=== PATIENT | female | born 1975 | race Caucasian/White ===

== ENCOUNTER 2022-04-25 15:49 | Outpatient (CLI) | payer OTHER, SELFPAY ==
--- OUTSIDE RECORDS SUMMARY | 2022-04-25 15:52 | XMS_ITS | Clinical Summary ---
:1975 Author Organization [facility] Address [address] [place] [address] Care Team Providers Name Role Phone Aura Sandhu APRN C.N.P., D.N.P. Primary Care Provider Source Comments Patient records contain information from all sites at [facility]. For routine questions regarding patient records, call [phone] during business hours, M-F 8:00 AM - 5:00 PM Central Time. Record requests for emergency care only can be directed to [phone] at any time.[facility] Allergies Active Allergy Reactions Severity Noted Date Comments Bee Venom Protein (Honey Other (see 09/21/2013 BEE S Bee) comments) Chloramphenicol Other (see 09/21/2013 CHLORAMPHENI COL comments) Quinolones Other (see 09/21/2013 QUINOLONES - ci loxan comments) eye tts Medications Medication Sig Dispensed Refills Start Date End Date Status chlorhexidine Take 15 mL by mouth 0 02/21/2016 Active (for_PERIDEX) 0.12 % at bedtime. mouthwash multivitamin tablet Take 2 tablets by 0 04/05/2013 Active mouth daily. coal tar (PREM-GEL) Apply 1 application 0 Active 0.5 % shampoo topically every other day as needed for dandruff. amoxicillin (AMOXIL) Take 4 capsules 12 capsule 10 07/24/2018 Active 500 mg capsule (2,000 mg total) by mouth See Admin Instructions. Prior to dental appointments calcipotriene Apply to involved 60 g 2 03/03/2020 Active (DOVONEX) 0.005 % areas on trunk and ointment extremities once daily Mondays- Additional Information Patient not taking. Reported on 08/03/2020 clobetasoL (TEMOVATE) 0.05 % 0 04/05/2021 Active ointment dexAMETHasone sodium 4 mL by iontophoretic route 25 mL 0 1 07/19/2020 Active phosphate 0.4 % solution as needed (Plantar fasciitis pain). Active Problems Problem Noted Date Other Specified Hypothyroidism 08/13/2020 Overview: Formatting of this note might be differe nt from the original. Discuss options of low-dose Synthroid tr ial for 6 months. Patient currently asymptomatic and no complaints. Mom would like to continue monitoring her thyroid levels. 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/05/2013 Overview: unknown date of dx Psoriasis 04/05/2013 Overview: unknown date of dx Stenosis Mitral Congenital 04/05/2013 Overview: unknown date of dx Defect Atrial Ventricular Canal Complete 11/08/2012 Regurgitation Mitral 11/08/2012 Overview: unknown date of dx Resolved Problems Problem Noted Date Resolved Date Monitoring For Therapeutic Drug Therapy [Z51.81] 09/07/2017 09/09/2019 Party Plan Sales Agent Anticoagulant Treatment [Z79.01] 09/07/2017 09/09/2019 Anticoagulant Therapy [Z79.01] 05/25/2017 0 Gallstone Without Obstruction 05/29/2014 07/10/2018 Primary Hypercoagulation Syndrome 09/21/20132019 Overview: Primary Hypercoagulable State 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 Anna Riley rec: lifelong coumadin Deficiency Protein S 09/05/2013 08/03/2020 Overview: Deficiency Protein S Thrombosis Deep Vein Acute Lower Extremity 04/05/2013 09/09/2019 Overview: DVT, lower extremity Encounters Date Type Specialty Care Team Description 04/20/2022 Orders Only Aura Sandhu, DISTRICT TRAFFIC CHIEF, C.N.P., D.N.P. 03/01/2022 Orders Only Aura Sandhu, Screening Examination Diabetes Mellitus; DISTRICT TRAFFIC CHIEF, C.N.P., D.N.P. Hyperli pidemia Mixed from Last 3 Months Immunizations Name Administration Dates Next Due H1N1 All Forms 07/17/2009 Influenza (IM) Preservative Free 04/12/2006 Influenza Split 04/26/2016, 04/26/2013, 04/09/2012 Influenza TIV (IM) 04/12/2013, 03/19/2012, 04/15/2008, 05/03/2007, 04/12/2006, 05/06/2005, 05/28/2003 Influenza high dose QV(65 years or 04/26/2016, 04/26/2013 older) (PF) Influenza, Unspecified 03/10/2018, 04/09/2014, 04/12/2013, 03/19/2012, 04/15/2008, 05/03/2007, 04/12/2006, 05/06/2005, 05/28/2003 SARS-COV-2 (COVID-19) - MODERNA 12/08/2021, 05/05/2021 Td Preservative Free (TENIVAC, 07/10/2018 DECAVAC) Tdap 04/09/2007 influenza vaccine quad 03/11/2021, 02/28/2020, 04/02/2019 (FLUZONE/FLUARIX) (6 months and older)(PF) Family History Medical History Relation Name Comments Breast cancer Aunt 1 Maternal Thyroid dysfunction Aunt 1 Maternal Aneurysm Aunt 2 maternal Brain Thyroid dysfunction Aunt 2 maternal Aneurysm Uncle Maternal aortic aneurysm and bulge Cataracts Neg Hx Diabetes Neg Hx Glaucoma Neg Hx Hypertension Neg Hx Macular degeneration Neg Hx Relation Name Status Comments Aunt 1 Maternal Aunt 2 maternal Uncle Maternal Social History Tobacco Use Types Packs/Day Years Used Date Smoking Tobacco: Never Smokeless Tobacco: Never Alcohol Use Standard Drinks/Week Comments Yes 0 (1 standard drink = 0.6 oz pure 1 wine cooler very occassionaly alcohol) Sex Assigned at Date Recorded Not on file Last Filed Vital Signs Vital Sign Reading Time Taken Comments Blood Pressure 116/60 08/29/2021 12:34 PM HR ADVISOR Pulse 72 08/29/2021 12:34 PM HR ADVISOR Temperature 36.4 ??C (97.5 ??F) 08/29/2021 12:34 PM HR ADVISOR Respiratory Rate 18 08/29/2021 12:34 PM HR ADVISOR Oxygen Saturation 95% 08/29/2021 12:34 PM HR ADVISOR Inhaled Oxygen Concentration - - Weight 78.5 kg (173 lb 1 oz) 08/29/2021 12:36 PM HR ADVISOR Height 148.5 cm (4' 10.47) 08/03/2020 2:19 PM HR ADVISOR Body Mass Index 35.6 08/03/2020 2:19 PM HR ADVISOR Plan of Treatment Health Maintenance Due Date Last Done Comments CT Colonography 1975 Cologuard 1975 Colonoscopy 1975 Colorectal Cancer Screening 1975 FIT 1975 HIV Screening 1975 Hepatitis B Vaccines (1 of 1974 3 - 3-dose series) Hepatitis C Screening 1975 Cervical Cancer Screening 06/26/2014 06/26/2011 (Performed elsewhere) Depression Screening 06/26/2021 (Annual PHQ-2) Fasting Glucose for 08/26/2021 08/26/2020, 07/17/2018, Diabetes Screening 2017, Additional history exists Lipid (Cholesterol) 08/26/2021 08/26/2020, 07/17/2019, Screening 07/17/2018, Additional history exists COVID-19 Vaccine (5 - 02/02/2022 12/08/2021, 05/05/2021, Booster for Moderna series) 08/28/2020, Addition al history exists Influenza Vaccine (#1) 2022 03/11/2021, 02/28/2020, 04/02/2019, Additional history exists Mammogram 10/25/2022 10/25/2021, 08/03/2020, 08/01/2019, Additional history exists DTaP,Tdap,and Td Vaccines 07/10/2028 07/10/2018, 04/09/2007 (3 - Td or Tdap) Pneumococcal vaccine (0-64 Aged Out No lo nger eligible years) based on patient 's age to complete this topic Medical Devices Implanted Type Area Associate Account Manager Device Shelf Model / Identifier Expiration Serial / Date Lot Syn-Screw Cortex S-Tap 2.4 X 18mm - [id number] [id number] Hardware e.g. Depuy Synthes Implanted: Qty: 2 on 05/09/2016 pins/screws/r ods Description: Device Associate Account Manager - Synth es. Device Status Text - [id number]. Patch Pericardial Supple 6 X 8 - Akers [id number] Mesh or Patch Other/Legacy - See Implant Synovis Implanted: Qty: 1 on 03/29/2013 Description Description: Device Associate Account Manager - Synov is. Body Location - Other. Not Applicable. Device Status Text - [id number]. Insurance Payer Benefit Plan / Subscriber ID Effective Dates Phone Addre ss Type Group [facility] [id number] 2017-Presamarilis [address] [facility] t JEN [address] [facility] [id number] Advance Directives For more information, please contact: [phone] Documents on File Type Date Recorded Patient Manager Loss Prevention Explanati on Advance Directives 03/03/2016 12:00 AM Legacy docu ment. See document viewer. Advance Directives 03/29/2013 12:00 AM Legacy doc ument. See document viewer. Advance Directives 03/29/2013 12:00 AM Legacy doc ument. See document viewer. Care Teams Therapeutic Recreation Director Relationship Specialty Start Date End Date Aura Sandhu APRN, C.N.P., D.N.P. PCP - General 09/25/[address] [place] [phone]
--- OUTSIDE RECORDS SUMMARY | 2022-04-25 15:52 | XMS_ITS | Encounter Summary ---
:1975 Author Organization [facility] Address [address] [place] [address] Care Team Providers Name Role Phone Aura Sandhu APRN C.N.PMichael, D.N.P. Primary Care Provider Reason for Referral Outpatient (Routine) - Authorized Specialty Diagnoses / Procedures Referred By Contact Refer red To Contact Family Medicine Aura Sandhu APRN, [facility] C.N.P., D.N.P. [address] [place] [phone] Referral ID Status Reason Start Date Expiration Date Visits V isits Requested Authorized [id number] Authorized 11/30/2021 11/30/2022 1 1 Encounter Details Date Type Department Care Team Description 11/30/2021 Orders Only [facility] PCP [facility] [place] Duke M.D. [address] [place], [place] [phone] (Wo rk) Social History Tobacco Use Types Packs/Day Years Used Date Smoking Tobacco: Never Smokeless Tobacco: Never Alcohol Use Standard Drinks/Week Comments Yes 0 (1 standard drink = 0.6 oz pure 1 wine cooler very occassionaly alcohol) Sex Assigned at Date Recorded Not on file documented as of this encounter Plan of Treatment Scheduled Referrals Name Type Priority Associated Diagnoses Order S [facility] Family Medicine Outpatient Referral Routine Expec nelson: office visit 12/14/2021, (clinic) Expires: 05/29/2022 documented as of this encounter Visit Diagnoses Not on filedocumented in this encounter Care Teams Ob Gyn Relationship Specialty Start Date End Date Aura Sandhu APRN, C.N.P., D.N.P. PCP - General 09/25/[address] [place] [phone] documented as of this encounter
--- OUTSIDE RECORDS SUMMARY | 2022-04-25 15:52 | XMS_ITS | Encounter Summary ---
:1975 Author Organization [facility] Address [address] [place] [address] Care Team Providers Name Role Phone Aura Sandhu APRN C.N.PMichael, D.N.P. Primary Care Provider Reason for Visit Appointment Request (Routine) - Closed Specialty Diagnoses / Procedures Referred By Contact Refer red To Contact Family Medicine Referral ID Status Reason Start Date Expiration Date Visits Requ ested Visits Authorized [id number] Closed 11/17/2021 11/17/2022 1 1 Encounter Details Date Type Department Care Team Description 12/08/2021 Immunization Department of [facility] Aura Sandhu, Medicine, [place] [facility], C.N .P., D.N.P. Clinic, in [address] [place], [place] [address] [phone] Social History Tobacco Use Types Packs/Day Years Used Date Smoking Tobacco: Never Smokeless Tobacco: Never Alcohol Use Standard Drinks/Week Comments Yes 0 (1 standard drink = 0.6 oz pure 1 wine cooler very occassionaly alcohol) Sex Assigned at Date Recorded Not on file documented as of this encounter Plan of Treatment Not on filedocumented as of this encounter Visit Diagnoses Not on filedocumented in this encounter Care Teams Production Staff Worker Relationship Specialty Start Date End Date Aura Sandhu APRN, C.N.P., D.N.P. PCP - General 09/25/[id number] [phone] documented as of this encounter
--- OUTSIDE RECORDS SUMMARY | 2022-04-25 15:52 | XMS_ITS | Encounter Summary ---
:1975 Author Organization [facility] Address [address] [place] [address] Care Team Providers Name Role Phone Aura Sandhu APRN C.N.PMichael, D.N.P. Primary Care Provider Reason for Referral Specialty Diagnoses / Procedures Referred By Contact Refer red To Contact Aura Sandhu APRN, C.N.PMichael, [facility] D.N.P. [address] [place] [phone] Referral ID Status Reason Start Date Expiration Date Visits Requ ested Visits Authorized Encounter Details Date Type Department Care Team Description 04/20/2022 Orders Only [facility] Aura Sandhu APRN C.N.P., D.N.P. [address] [place] [phone] (Wo rk) Social History Tobacco Use Types Packs/Day Years Used Date Smoking Tobacco: Never Smokeless Tobacco: Never Alcohol Use Standard Drinks/Week Comments Yes 0 (1 standard drink = 0.6 oz pure 1 wine cooler very occassionaly alcohol) Sex Assigned at Date Recorded Not on file documented as of this encounter Plan of Treatment Scheduled Referrals Name Type Priority Associated Order Schedule Diagnoses Covid immunization Outpatient Referral Routine Ex pected: office visit 04/20/2022 Immuno/Booster (Approximate) , Expires: 04/20/2023 documented as of this encounter Visit Diagnoses Not on filedocumented in this encounter Care Teams Railway Head Tender Relationship Specialty Start Date End Date Aura Sandhu APRN, C.N.P., D.N.P. PCP - General 09/25/[id number] [phone] documented as of this encounter
--- OUTSIDE RECORDS SUMMARY | 2022-04-25 15:53 | XMS_ITS | Encounter Summary ---
:1975 Author Organization [facility] Address [address] [place] [address] Care Team Providers Name Role Phone Aura Sandhu APRN C.N.PMichael, D.N.P. Primary Care Provider Reason for Visit Reason Comments Follow-up Outpatient (Routine) - Closed Specialty Diagnoses / Procedures Referred By Contact Refer red To Contact Oncology Shawn Barton M.D. [facility] Region [address] [place] [phone] Referral ID Status Reason Start Date Expiration Date Visits Requ ested Visits Authorized [id number] Closed 06/29/2020 06/29/2021 1 1 Encounter Details Date Type Department Care Team Description 08/03/2020 Office Visit Department of Shawn Barton, Primary Hyp ercoagulation Oncology in [facility] Syndrome (HCC) ([place], [place] [address] [place] [address] Dx) [address] [place] [phone] Social History Tobacco Use Types Packs/Day Years Used Date Smoking Tobacco: Never Smokeless Tobacco: Never Alcohol Use Standard Drinks/Week Comments Yes 0 (1 standard drink = 0.6 oz pure 1 wine cooler very occassionaly alcohol) Sex Assigned at Date Recorded Not on file documented as of this encounter Last Filed Vital Signs Vital Sign Reading Time Taken Comments Blood Pressure 100/44 08/03/2020 2:19 PM TOW TRUCK DISPATCHER Pulse 66 08/03/2020 2:19 PM TOW TRUCK DISPATCHER Temperature - - Respiratory Rate - - Oxygen Saturation - - Inhaled Oxygen Concentration - - Weight 80.7 kg (177 lb 14.6 oz) 08/03/2020 2:19 PM TOW TRUCK DISPATCHER Height 148.5 cm (4' 10.47) 08/03/2020 2:19 PM TOW TRUCK DISPATCHER Body Mass Index 36.59 08/03/2020 2:19 PM TOW TRUCK DISPATCHER documented in this encounter Progress Notes Shawn Barton M.D. - 08/03/2020 2:30 PM CST SUBJECTIVE REQUESTING PROVIDER Shawn Barton M.D. [address] [place] [phone] CHIEF COMPLAINT / REASON FOR VISIT Hue Medina is a 45 y.o. female who presents for a history of low protein S levels control pill on Coumadin associated DVT of the right leg. Here for oncological follow-up visit after off of anticoagulation and repeat coagulation testing HISTORY OF PRESENT ILLNESS Oncology History Oncology History Overview Note 2006 while on control pills, developed a DVT in the right leg. Testing suggested protein S deficiency. Has been on Coumadin since that time with no further blood clot or pulmonary embolism. Has had multiple surgeries without problems including valvular heart surgery, broken arm, and cellulitis. No family history of clotting. 2016 Component Ref Range & Units 4yr ago Antithrombin Activity, P 80 - 130 % 76Low Protein S Ag, Free, P 50 - 160 % 25Low Activated Partial Thrombopl Time, P 26 - 36 SEC 27 Thrombin Time (Bovine), P 15 - 23 SEC 17 Prothrombin Time, P 10.3 - 12.8 SEC 18.3High INR 1.7 PTNT Reviewed By . Comment: Jeremi Hoang M.D., Ph.D. PTNT Interpretation . Comment: This individual DOES NOT have the Prothrombin [id number] mutation. Although the Prothrombin [id number] mutation is absent, the individual may have other genetic and environmental risk factors for thrombosis. Consider genetic consultation and counseling of potentially affected family members regarding laboratory testing. ADDITIONAL INFORMATION This test is a direct mutation analysis using PCR amplification, signal generation and release by cleavage of sequence specific alleles ([employer], [employer], [place], [place]). APCRV Ratio >or=2.3 3.0 Fibrinogen, P 200 - 430 MG/DL 364 Fibrinogen Equivalent Units (FEU) 0.00 - 0.50 MCG/ML FEU 0.67High D-Dimer Units (DDU) 0 - 250 335High Comment: Unit of measure: ng/mL D-Dimer Soluble Fibrin Monomer 0.0 - 7.9 MCG/ML <8 DRVVT Screen Ratio 0.0 - 1.1 RATIO 0.9 Protein C Activity, P 70 - 150 % 63Low Prothrombin E40851C Mutation, B Negative Negative Reviewed By: (Conor Foss Intergio) . Comment: Eva Mackenzie. HX Interpretation (w/Conor-Prudence) . Comment: Type of Study: Thrombophilia Profile 05/10/2016 IMPRESSION: 1) Warfarin anticoagulation effects, see comments. 2) Decreased protein C/S levels and reduced antithrombin activity and antigen, acquired versus congenital. See comments, suggest clinical correlation and consider repeat testing for confirmation at patient's baseline medical status and remote from anticoagulation effects. 3) Mildly elevated D-dimer, see comments and suggest correlation with patient's medical status. 4) No additional identifiable congenital or acquired thrombophilia within limitations of current test repertoire. COMMENTS: Result of mixing study of prolonged prothrombin time (PT), along with the reduced vitamin K-dependent factors (factors II, VII and proteins C and S), are consistent with either warfarin anticoagulation effect or a vitamin K deficiency state. Suggest clinical correlation. Note: The patient's reported history of protein S deficiency is noted. This thrombophilia testing was sent while the patient is on warfarin anticoagulation therapy and the reduced free and total protein S levels may reflect either warfarin anticoagulation effects, congenital deficiency, or a combination. There is no significant discordance between the protein S levels and the activity of factor II (which has a similar half-life to protein S) and therefore no strong indication of a congenital deficiency. However, this cannot be excluded based on current data. To determine whether the patient has a congenital protein S deficiency, testing could be repeated at least 14 days after warfarin therapy discontinuation if clinically indicated. Note: Decreased antithrombin antigen and/or activity could reflect acquired conditions [e.g., liver disease, disseminated intravascular coagulation (DIC/ICF), effect of recent heparin therapy, etc.] or a congenital deficiency state. Suggest clinical correlation. Elevated fibrin D-dimer is indicative of increased fibrinolysis, as can occur in association with recent bleeding, surgery or thromboembolism, hypercoagulable state, liver disease, or intravascular coagulation and fibrinolysis (DIC/ICF). Suggest clinical correlation. No evidence of lupus anticoagulant (LAC) or dysfibrinogenemia. Normal fibrinogen level. No evidence of activated protein C resistance; therefore DNA-based testing for factor V Leiden (R506Q) mutation was not performed. This individual DOES NOT have the prothrombin R63845G mutation. Negative results of testing for IgG and IgM anticardiolipin antibodies provide no evidence of antiphospholipid antibodies by this methodology. Deficiency Protein S (HCC) (Resolved) 09/05/2013 Initial Diagnosis Deficiency Protein S (HCC) 06/2020 Restage Repeat coagulation testing off of Coumadin shows no evidence of protein C or protein S deficiency. Does show elevation of D-dimer with normal soluble fibrin monomer. Since our last evaluation, did go off of Coumadin and did have repeat coagulation testing. Does havean active infection of her tooth. She also has some bruising in her thigh. Those now resolved. Otherwise no blood clots or pulmonary embolism symptoms while off of anticoagulation ECOG PS = 0 REVIEW OF SYSTEMS All other systems reviewed and are negative. OBJECTIVE BP (!) 100/44 (BP Location: Right arm, Patient Position: Sitting, Cuff Size: Regular) Pulse 66 Ht 148.5 cm Wt 80.7 kg BMI 36.59 kg/m?? No data recorded PHYSICAL EXAM Vitals signs and nursing note reviewed. Constitutional Appearance: Normal appearance. Skin Comments: Clinical examination of the thigh bilaterally shows no evidence of any masses or any bruising at this time. Neurological Mental Status: She is alert. Psychiatric Mood and Affect: Mood normal. Behavior: Behavior normal. REPORTS REVIEWED Imaging: Reviewed images in QREADS with Hue Medina no new imaging done. Laboratory/Pathology: Reviewed labs with Hue Medina No results found for this or any previous visit (from the past 72 hour(s)). ASSESSMENT / PLAN #1 Primary Hypercoagulation Syndrome (HCC) I reviewed with Ms. Medina and her mother, that repeat testing of her anticoagulation system off of anticoagulation with warfarin did show normal protein C and protein S levels. At this point we cannot confirm that she has an inheritable or acquired protein [employer] deficiency. We did discuss concerns regarding the persistent elevation of the D-dimer. We did discuss the differential diagnosis and reasons why this is elevated. She did have a normal soluble fibrin monomer. So at this time it could be due to the on after lying infection of her tooth or her bruising that she hadin her thighs has now resolved. Recommendation at this time is to repeat a D-dimer as though she does not have any clinical evidence of DVT. Given the anticoagulation for her control pill induced DVT, she has been off of therapy without further problems. So at this time will continue to monitor off of therapy. If she does develop a clot again, she would then need to be on long-term anticoagulation either with Coumadin or DOCA. Will a know the results of the D-dimer via the portal per request. All questions answered to apparent satisfaction. The patient agrees with plan and to call with questions/symptoms. Orders Placed This Encounter Procedures ??? D-Dimer PATIENT EDUCATION Learning needs assessment was performed. No learning barriers were identified. Explained diagnosis and treatment plan. Patient expressed understanding and was able to teach back. TRUCK DISPATCHER documented in this encounter Plan of Treatment Not on filedocumented as of this encounter Results (ABNORMAL) D-Dimer (08/03/2020 3:09 PM TOW TRUCK DISPATCHER) P athologist Signature D-Dimer, P 1071 (H) <=500 ng/mL 08/03/2020 [facility] FEU 3:25 PM TOW TRUCK DISPATCHER Comment: ----ADDITIONAL INFORMATION---- D-dimer values less than or equal to 500 ng/mL fibrinogen equivalent units (FEU) may be used in co njunction with clinical pre-test probability to exclude deep vein thrombosis (DVT) and/or pulmonary emboli sm (PE). Specimen Anatomical Collection Method Collection Time Receive d Time (Source) Location / / Volume Laterality Blood (Blood, 08/03/2020 3:09 PM 08/03/19 3:10 Venous) TOW TRUCK DISPATCHER PM TOW TRUCK DISPATCHER Shawn Barton M.D. LAB BLOOD ADD-ON Performing Organization Address City/State/ZIP Code Phon e Number [facility] [address] [place], [place] [address] [place] [address] System in [place] [address] documented in this encounter Visit Diagnoses Diagnosis Primary Hypercoagulation Syndrome (HCC) - Primary documented in this encounter Care Teams Building Construction Supervisor Relationship Specialty Start Date End Date Aura Sandhu APRN, C.N.P., D.N.P. PCP - General 09/25/[address] [place] [phone] documented as of this encounter
--- OUTSIDE RECORDS SUMMARY | 2022-04-25 15:53 | XMS_ITS | Encounter Summary ---
:[address] [facility] Address [address] [place] [address] Care Team Providers Name Role Phone Aura Sandhu APRN C.N.PMichael, D.N.P. Primary Care Provider Reason for Referral Outpatient (Routine) - Closed Specialty Diagnoses / Procedures Referred By Contact Refer red To Contact Oncology Shawn Barton M.D. [facility] [address] [place] [address] Referral ID Status Reason Start Date Expiration Date Visits Requ ested Visits Authorized [id number] Closed 06/29/2020 06/29/2021 1 1 NOSE THROAT PHYSICIAN Reason for Visit Reason Comments Consult Deficiency Protein C Appointment Request (Routine) - Closed Specialty Diagnoses / Procedures Referred By Contact Refer maci To Contact Hematology Diagnoses Deficiency Protein C (HCC) Abelino Rehman M.D. [address] [place], [place] [address] Referral ID Status Reason Start Date Expiration Date Visits Requ ested Visits Authorized [id number] Closed 05/15/2020 05/15/2021 1 1 Encounter Details Date Type Department Care Team Description 06/29/2020 Comprehensive Visit Department of Shawn Barton Trisomy 21 (HCC) (Primary Dx); Oncology in Maci Ureña M.D. Deficiency Protein S (HCC) [place], [place] [address] [facility] [address] [place] [phone] Social History Tobacco Use Types Packs/Day Years Used Date Smoking Tobacco: Never Smokeless Tobacco: Never Alcohol Use Standard Drinks/Week Comments Yes 0 (1 standard drink = 0.6 oz pure alcoho l) Sex Assigned at Date Recorded Not on file documented as of this encounter Last Filed Vital Signs Vital Sign Reading Time Taken Comments Blood Pressure 101/61 06/29/2020 9:45 AM EAR NOSE THROAT PHYSICIAN Pulse 67 06/29/2020 9:45 AM EAR NOSE THROAT PHYSICIAN Temperature - - Respiratory Rate - - Oxygen Saturation 99% 06/29/2020 9:45 AM EAR NOSE THROAT PHYSICIAN R/A Inhaled Oxygen Concentration - - Weight 79.4 kg (175 lb 0.7 oz) 06/29/2020 9:45 AM EAR NOSE THROAT PHYSICIAN Height 148.5 cm (4' 10.47) 06/29/2020 9:45 AM EAR NOSE THROAT PHYSICIAN Body Mass Index 36 06/29/2020 9:45 AM EAR NOSE THROAT PHYSICIAN documented in this encounter Progress Notes Shawn Barton M.D. - 06/29/2020 10:00 AM CST SUBJECTIVE REQUESTING PROVIDER Abelino Rehman M.D. [address] [place] [address] CHIEF COMPLAINT / REASON FOR VISIT Hue Medina is a 45 y.o. female who presents for a history of right lower leg DVT in the setting of control pills and low protein C and S activity while on Coumadin. Were asked evaluate whether not she actually has protein S deficiency and need for anticoagulation. HISTORY OF PRESENT ILLNESS Oncology History Oncology [...] This individual DOES NOT have the Prothrombin [id number] mutation. Although the Prothrombin [id number] mutation is absent, the individual may have other genetic and environmental risk factors for thrombosis. Consider genetic consultation and counseling of potentially affected family members regarding laboratory testing. ADDITIONAL INFORMATION This test is a direct mutation analysis using PCR amplification, signal generation and release by cleavage of sequence specific alleles ([employer], [employer], [place], [place]). APCRV Ratio >or=2.3 3.0 Fibrinogen, P 200 - 430 MG/DL 364 Fibrinogen Equivalent Units (FEU) 0.00 - 0.50 MCG/ML FEU 0.67High D-Dimer Units (DDU) 0 - 250 335High Comment: Unit of measure: ng/mL D-Dimer Soluble Fibrin Monomer 0.0 - 7.9 MCG/ML <8 DRVVT Screen Ratio 0.0 - 1.1 RATIO 0.9 Protein C Activity, P 70 - 150 % 63Low Prothrombin G71014F Mutation, B Negative Negative Reviewed By: (Conor Foss [employer]p) . Comment: Eva Mackenzie. HX Interpretation (w/Conor-Prudence) [...] This individual DOES NOT have the prothrombin P99910R mutation. Negative results of testing for IgG and IgM anticardiolipin antibodies provide no evidence of antiphospholipid antibodies by this methodology. 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 Also Sivakumar review the thrombophilia profile at that time. Should be noted that she did have a DVT in the right lower leg sometime around 2006 in the setting of control pills. She has been on Coumadin since that time is having hard time regulating it. She has had no active bleeding or clots since on Coumadin. She has had multiple surgery including open heart surgery and broken bones surgery without problems. She has drifted down prior to procedures that are planned and has done well without clots. There is no family history of blood clots. She is otherwise active without any other systemic symptoms. She does have trisomy 21. ECOG PS = 0 The following portions of the patient's history were reviewed and updated as appropriate: allergies,current medications, family history, medical history, social history, surgical history and problem list. REVIEW OF SYSTEMS All other systems reviewed and are negative. OBJECTIVE BP 101/61 (BP Location: Right arm, Patient Position: Sitting, Cuff Size: Regular) Pulse 67 Ht 148.5 cm Wt 79.4 kg SpO2 99% Comment: R/A BMI 36.00 kg/m?? No data recorded PHYSICAL EXAM Vitals signs and nursing note reviewed. Cardiovascular Rate and Rhythm: Regular rhythm. Pulmonary Effort: Pulmonary effort is normal. Neurological General: No focal deficit present. Mental Status: She is alert. Psychiatric Mood and Affect: Mood normal. Behavior: Behavior normal. Thought Content: Thought content normal. Judgment: Judgment normal. REPORTS REVIEWED Imaging: Reviewed images in QREADS with Hue Bellamy Carol Laboratory/Pathology: Reviewed labs with Hue Medina No results found for this or any previous visit (from the past 72 hour(s)). ASSESSMENT / PLAN #1 Trisomy 21 (HCC) #2 Deficiency Protein S (HCC) I reviewed with Ms. Medina and her mother, that at this time it does appear that there is some low activity protein C and S in the setting of Coumadin. This makes interpretation if she actually has protein C/S difficult. The only way to test this would be to see a thrombophilia profile off of anticoagulation for 2 weeks. There is a slight risk of clots during this time they understand. Is agreed upon that they will stop the Coumadin today. Last dose was on Sunday June 28, 2020. Will check a thrombophilia profile 2 weeks from now and then see her back in a month to review the results. There is no strong history of inheritable blood coagulopathy. We did discuss even if she does have protein C/S deficiency, that she might not need long-term anticoagulation given her DVT in the right leg was provoked with control pills. We did discuss she is at higher risk if she does have protein C/S deficiency during any provoking events such as surgery. They understand. We also discussed the alternative option using DOAC if she does develop recurrent DVT/PE off of anticoagulation. Will review findings and recommendations for anticoagulation when visit [id number] to review the results of the thrombophilia evaluation. We also discussed the option of getting further input from our thrombophilia colleagues in [facility] via E consult if necessary All questions answered to apparent satisfaction. The patient agrees with plan and to call with questions/symptoms. Orders Placed This Encounter Procedures ??? Thrombophilia Profile ??? Oncology office visit (clinic) PATIENT EDUCATION Learning needs assessment was performed. No learning barriers were identified. Explained diagnosis and treatment plan. Patient expressed understanding and was able to teach back. ADMINISTRATIVE BILLING I personally spent over half of a total 45 minutes face to face with the patient in counseling and discussion and/or coordination of care as described above. NOSE THROAT PHYSICIAN documented in this encounter Plan of Treatment Scheduled Referrals Name Type Priority Associated Diagnoses Order S [facility] On[facility] office Outpatient Referral Routine Expec nelson: visit (clinic) 07/30/2020 (Approximate), Expires: 06/29/2023 documented as of this encounter Results (ABNORMAL) Thrombophilia Profile (07/13/2020 9:08 AM EAR NOSE THROAT PHYSICIAN) P athologist Signature Prothrombin Time 10.5 9.4 - 12.5 07/14/2020 DTL (PT), P sec 9:56 AM EAR NOSE THROAT PHYSICIAN INR 1.0 0.9 - 1.1 07/14/2020 DTL 9:56 AM EAR NOSE THROAT PHYSICIAN Comment: ----ADDITIONAL INFORMATION---- Standard intensity warfarin therapeutic range: 2.0 to 3.0 High intensity warfarin therapeutic rang e: 2.5 to 3.5 Activated Partial Thrombopl Time, 26 25 - 37 sec 06/26 9:58 AM EAR NOSE THROAT PHYSICIAN DTL P DRVVT Screen Ratio 1.19 <1.20 ratio 07/14/2020 9:56 AM EAR NOSE THROAT PHYSICIAN DTL Thrombin Time (Bovine), P 20.0 15.8 - 24.9 sec 07/14/19 21 9:56 AM EAR NOSE THROAT PHYSICIAN DTL Fibrinogen, Clauss, P 390 200 - 500 mg/dL 07/14/2020 9 :49 AM EAR NOSE THROAT PHYSICIAN DTL Comment: ----ADDITIONAL INFORMATION---- This test has been modified from the man melanie's instructions. Its performance characteri stics were determined by [facility] in a manner co nsistent with CLIA requirements. This test has not bee n cleared or approved by the U.S. Food and Drug Admin istration. D-DIMER, P 1031 (H) <=500 ng/mL FEU 07/14/2020 9:57 AM EAR NOSE THROAT PHYSICIAN DTL Comment: ----ADDITIONAL INFORMATION---- D-dimer values less than or equal to 500 ng/mL fibrinogen equivalent units (FEU) may be used in co njunction with clinical pre-test probability to exclude deep vein thrombosis (DVT) and/or pulmonary emboli sm (PE). Antithrombin Activity, P 93 80 - 130 % 07/14/2020 9:4 9 AM EAR NOSE THROAT PHYSICIAN DTL Comment: ----ADDITIONAL INFORMATION---- This test has been modified from the [employer]'s instructions. Its performance characteri stics were determined by [facility] in a manner co nsistent with CLIA requirements. This test has not bee n cleared or approved by the U.S. Food and Drug Admin istration. Protein C Activity, P 162 (H) 70 - 150 % 07/14/2020 9:58 A M EAR NOSE THROAT PHYSICIAN DTL Comment: ----ADDITIONAL INFORMATION---- This test has been modified from the [employer]'s instructions. Its performance characteri stics were determined by [facility] in a manner co nsistent with CLIA requirements. This test has not bee n cleared or approved by the U.S. Food and Drug Admin istration. Protein S Ag, Free, P 75 50 - 160 % 07/14/2020 9:50 A M EAR NOSE THROAT PHYSICIAN DTL Comment: ----ADDITIONAL INFORMATION---- This test has been modified from the [facility] instructions. Its performance characteri stics were determined by [facility] in a manner co nsistent with CLIA requirements. This test has not bee n cleared or approved by the U.S. Food and Drug Admin istration. APCRV Ratio 3.0 >or=2.3 07/14/2020 9:48 AM EAR NOSE THROAT PHYSICIAN DTL Reviewed By SAEED Bah 08/04/2020 3:03 PM EAR NOSE THROAT PHYSICIAN DTL Prothrombin R31213S CANCELED Negative 07/16/2020 1:[address] DTL Mutation, B Comment: Result canceled by the kunal conroy PTNT Interpretation CANCELED 07/16/2020 1:[address] DTL Comment: Result canceled by the kunal conroy Thrombophilia REVISED REPORT: 08/04/2020 3:03 PM D TL Interpretation ?? IMPRESSION: 1) Elevated D-dimer; see comments and suggest clinical EAR NOSE THROAT PHYSICIAN correlation. ?2) No identifiable congenital or acquired thrombotic d iathesis (thrombophilia) within limitations of test repertoire. ?3) If indicated for ad ditional thrombophilia assessment, consider testing for anticardiolipin and/or anti-beta 2 glycoprot ein I antibodies (IgG and IgM isotypes). ?4) Results of referred test component Prothrombin G2 0210A demonstrate that this individual DOES NOT have the prothrombin J97294N m utation. ??See comments. Testing performed at [facility] (CLIA# [id number]) [address] [place] [id number]. ?COMMENTS: Fibrin D-dimer elevation is indicative of in creased intravascular coagulation and fibrinolysis (ICF) , as can occur in association with recent bleeding, surgery or thromboembolism, hypercoagu lable or hyperfibrinolytic states, liver disease, or clinical ICF/DIC (disseminated intravascular coagulation). The normal soluble fibrin monomer complex (SFMC) provides no additional evidence of increased intravascular c oagulation or ICF/DIC, within assay sensitivity. ??Suggest clinical correl ation. ?No evidence of lupus anticoagulant (LAC) or dysfibrino genemia. No deficiencies of antithrombin, protein C and protein S. ?No evidence of resistance to activated protein C (APC) ; therefore, DNA-based testing for the factor V Leiden (R506Q ) mutation was not performed. A normal APC-resistance ratio has a greater than 99% negativ e predictive value for factor V (R506Q) Leiden. ?Due to reagent supply issues, component PTNT: Prothrom bin B97970R Mutation, Blood is unable to be performed at [facility] oratories. Results of referral test [test code FPF2V: Prothrombin (F2) L34832G Variant] demonstrate that this individual DOES NOT have the prothromb in W81149H mutation. Testing performed at [facility] (CLIA# [id number]) [address] [place] [address]. ?Note: ??Increased protein C activity is of unknown hem ostatic significance. Comment: REVISED RESULTS ----PREVIOUSLY REPORTED ---- IMPRESSION: 1) Elevated D-dimer; see comments and suggest clinical correlation. ?2) No identifiable congenital or a cquired thrombotic diathesis (thrombophilia) within limitations of te st repertoire. ?3) If indicated for additional thr ombophilia assessment, consider testing for anticardiolipin and/or anti-beta 2 g lycoprotein I antibodies (IgG and IgM isotypes). ?4) Specimen for DNA based testing for component Prothrombin L16179A has been forwarded to [facility] and an amended report will be issued upon availability of results. See comments. ?COMMENTS: Fibrin D-dimer elevation is indicative of increased intravascular coagulation and fibrinolys is (ICF), as can occur in association with recent bleeding, surgery or thrombo embolism, hypercoagulable or hyperfibrinolytic states, liver disease, or clinical ICF/DIC (disseminated intravascular coagulation). The normal s oluble fibrin monomer complex (SFMC) provides no additional evidence of incre ased intravascular coagulation or ICF/DIC, within assay sensitivity. ??Sug gest clinical correlation. ?No evidence of lupus anticoagulant (LAC) or dysfibrinogenemia. No deficiencies of antithrombin, protein C and protein S. ?No evidence of resistance to activ ated protein C (APC); therefore, DNA-based testing for the factor V Leide n (R506Q) mutation was not performed. A normal APC-resistance ratio has a grea ter than 99% negative predictive value for factor V (R506Q) Leiden. ?Due to reagent supply issues, comp onent PTNT: Prothrombin S99962N Mutation, Blood is unable to be performe d; however, a blood specimen has been forwarded to [facility] (CLIA# [id number]) [address] [place] [address], an amended report will b e released. Interpretation of these results should be made within the clinic al context. ??If you wish to discuss these findings with a [facility] dairy feed sales consultant, please call [phone]. ?Note: ??Increased protein C activi ty is of unknown hemostatic significance., Flagged as: ??(Reported 0 07/21/2020 10:08) Specimen Anatomical Collection Method Collection Time Receive d Time (Source) Location / / Volume Laterality Blood (Blood, 07/13/2020 9:08 AM 07/14/19 7:59 Venous) EAR NOSE THROAT PHYSICIAN AM EAR NOSE THROAT PHYSICIAN Narrative [facility] - 08/04/2020 3:03 PM EAR NOSE THROAT PHYSICIAN Specimen Information: Specimen ID: [id number] Specimen Type: Blood Specimen Collection Start Date: 07/13/19 ??9:08 AM Specimen Received Date: 07/14/2020 ??7:5 9 AM Specimen ID: [id number] Specimen Type: Blood Specimen Collection Start Date: 07/13/19 ??9:08 AM Specimen Received Date: 07/14/2020 ??7:5 8 AM Specimen ID: [id number] Specimen Type: Blood Specimen Collection Start Date: 07/13/19 ??9:08 AM Specimen Received Date: 07/14/2020 ??7:5 9 AM Specimen ID: [id number] Specimen Type: Blood Specimen Collection Start Date: 07/13/19 ??9:08 AM Specimen Received Date: 07/14/2020 ??7:5 9 AM Specimen ID: [id number] Specimen Type: Blood Specimen Collection Start Date: 07/13/19 ??9:08 AM Specimen Received Date: 07/14/2020 ??7:5 9 AM Specimen ID: [id number] Specimen Type: Blood Specimen Collection Start Date: 07/13/19 ??9:08 AM Specimen Received Date: 07/14/2020 ??8:1 4 AM Shawn Barton M.D. LAB BLOOD NON ADD-ON Performing Organization Address City/State/ZIP Code Phon e Number [facility] [address] [place], [place] [address] [facility] [place] [address] [facility] [address] documented in this encounter Visit Diagnoses Diagnosis Trisomy 21 (HCC) - Primary Deficiency Protein S (HCC) Trisomy 21 (HCC) Deficiency Protein S (HCC) documented in this encounter Care Teams Product Advisor Relationship Specialty Start Date End Date Lindbeck, Aura M, CUSTOMER CONTACT REPRESENTATIVE, C.N.P., D.N.P. PCP - General 09/25/[id number] [place] [phone] documented as of this encounter
--- OUTSIDE RECORDS SUMMARY | 2022-04-25 15:53 | XMS_ITS | Encounter Summary ---
:1975 Author Organization [facility] Address [address] [place] [address] Care Team Providers Name Role Phone Aura Sandhu APRN, C.NGalileo, D.N.P. Primary Care Provider Encounter Details Date Type Department Care Team Description 04/16/2021 Hospital Encounter Department of Deyanira Weber, Pain Heel Right Radiology in [place] APRN.NGalileo, [place], [place] D.N.P. [id number] [place] [phone] Social History Tobacco Use Types Packs/Day Years Used Date Smoking Tobacco: Never Smokeless Tobacco: Never Alcohol Use Standard Drinks/Week Comments Yes 0 (1 standard drink = 0.6 oz pure 1 wine cooler very occassionaly alcohol) Sex Assigned at Date Recorded Not on file documented as of this encounter Medications at Time of Discharge Medication Sig Dispensed Refills Start Date End Date amoxicillin (AMOXIL) Take 4 capsules 12 capsule 10 07/24/2018 500 mg capsule (2,000 mg total) by mouth See Admin Instructions. Prior to dental appointments calcipotriene (DOVONEX) Apply to involved 60 g 2 03/03 0.005 % ointment areas on trunk and extremities once daily Mondays- chlorhexidine Take 15 mL by mouth 0 02/21/2016 (for_PERIDEX) 0.12 % at bedtime. mouthwash clobetasoL (TEMOVATE) 0 04/05/2021 0.05 % ointment coal tar (PREM-GEL) 0.5 Apply 1 application 0 % shampoo topically every other day as needed for dandruff. multivitamin tablet Take 2 tablets by 0 3 mouth daily. warfarin (for_COUMADIN) warfarin 2.5 mg oral 0 08/29/2021 2.5 mg tablet tablet See Instructions, 5mg Sun, Tues & Thurs, 2.5mg all other days or as directed per INR Clinic as of 09/29/2016, 30 tab(s) documented as of this encounter Plan of Treatment Not on filedocumented as of this encounter Procedures Procedure Name Priority Date/Time Associated Comments Diagnosis DX FOOT RIGHT 3+ RAD - Routine 04/16/2021 8:23 Pain Heel Right Resu lts for this VIEWS (most inpatients AM CDT procedure a re in and all the results outpatients) section. 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 Hindfo ot valgus and pes planus. Tiny plantar calcaneal spur. Narrative 04/16/2021 8:32 AM CDT EXAM: DX FOOT RIGHT 3+ VIEWS Procedure Note Sang Brian M.D. - 04/16/2021F ormatting of this note might be different from the original. EXAM: DX FOOT RIGHT 3+ VIEWS IMPRESSION: Hallux valgus with a bunion deformity an d mild degenerative arthritis of the first MTP joint. Hindfo ot valgus and pes planus. Tiny plantar calcaneal spur. Deyanira Weber APRN, C.N.P., D.N.P. IMG DIAGNOSTIC IMAG ING PROCEDURES documented in this encounter Visit Diagnoses Diagnosis Pain Heel Right documented in this encounter Care Teams Senior Property Manager Relationship Specialty Start Date End Date Aura Sandhu APRN, C.N.P., D.N.P. PCP - General 09/25/[id number] [phone] documented as of this encounter
--- OUTSIDE RECORDS SUMMARY | 2022-04-25 15:53 | XMS_ITS | Encounter Summary ---
:1975 Author Organization [facility] Address [address] [place] [address] Care Team Providers Name Role Phone Aura Sandhu APRN C.N.P., D.N.P. Primary Care Provider Reason for Visit Physical Therapy (Routine) - Canceled Specialty Diagnoses / Procedures Referred By Contact Refer red To Contact Diagnoses Pain Heel Right Deyanira Weber APRN, [facility] Procedures PT Ongoing treatment C.N.P., D.N.P. [address] [place] [phone] Referral ID Status Reason Start Date Expiration Date Visits V isits Requested Authorized [id number] Canceled 04/30/2021 06/25/2021 99 99 Encounter Details Date Type Department Care Team Description 05/14/2021 Clinical Support Department of Deyanira Weber APRN, C.N.P., D.N.P. [address] [place] [phone] Pain Heel Right Rehabilitation Services Ximena Rodriguez, P.T. [address] [place] [phone] [phone] Social History Tobacco Use Types Packs/Day Years Used Date Smoking Tobacco: Never Smokeless Tobacco: Never Alcohol Use Standard Drinks/Week Comments Yes 0 (1 standard drink = 0.6 oz pure 1 wine cooler very occassionaly alcohol) Sex Assigned at Date Recorded Not on file documented as of this encounter Progress Notes Ximena Rodriguez P.T. - 05/14/2021 3:30 PM CST Physical Therapy Outpatient Treatment Note SUBJECTIVE Patient's Name: Hue Medina Referring Provider: Deyanira Weber APRN, C.* Visit Diagnosis: 1. Pain Heel Right Payor: [facility] / Plan: [facility] My Single Point [employer] HMO / Product Type: HMO / No data recorded Epic Visit Count: 4 Patient comments: patient reports her symptoms are improving. She feels her symptoms are little bit better today. Contact monitoring: PPE used during therapy: Therapist was wearing the following PPE throughout entire session: surgicalmask Patient was wearing a mask during therapy session: yes Family member/caregiver present was wearing a mask: yes Additional Staff Present During Session: no OBJECTIVE Pain: Right heel pain improving Ortho Exam ankle range of motion is within normal limits. TREATMENT Treatment today consisted of: Perform continuous ultrasound to the right heel 1 megahertz 1.5 w per cm squared x8 minutes. The perform manual plantar fascia stretches full stretches of the great toe into extension as gastroc soleusstretches. Performed prolonged holds on stretches 30-60 seconds. Home Exercise Program/Education: Patient will continue with current home exercise program. Pt reports good compliance with her HEP. Assessment Clinical Impression: Patient tolerated treatment session well. Patient is demonstrating decrease in pain and has been very compliant with her home exercise program. Patient will continue to benefit from skilled physical therapy for resolution of symptoms. Functional Goals and Timeframes: PT Goal #1: Patient will be able to ambulate without pain increase. PT Goal #1 Date: 06/11/21 PT Goal #2: Patient will demonstrate ankle eversion at a 5/5. PT Goal #2 Date: 06/11/21 PT Goal #3: Patient was safe independently perform an independent home exercise program. PT Goal #3 Date: 06/11/21 No data recorded Plan Plan for next session: Continue with current plan of care. Time Spent with Patient Ultrasound (min): 8 min Manual Therapy (min): 20 min Time Calculation Total Timed Units (min): 28 min Total Treatment Time (min): 28 min N GATHERER documented in this encounter Plan of Treatment Not on filedocumented as of this encounter Visit Diagnoses Diagnosis Pain Heel Right documented in this encounter Care Teams Community Relations Officer Relationship Specialty Start Date End Date Aura Sandhu APRN, C.N.P., D.N.P. PCP - General 09/25/[address] [place] [phone] documented as of this encounter
--- OUTSIDE RECORDS SUMMARY | 2022-04-25 15:53 | XMS_ITS | Encounter Summary ---
:1975 Author Organization [facility] Address [address] [place] [address] Care Team Providers Name Role Phone Aura Sandhu APRN C.N.P., D.N.P. Primary Care Provider Reason for Visit Reason Comments Med Refill Encounter Details Date Type Department Care Team Description 03/03/2020 Refill Department of Dermatology in [place] M.D. Med Refill [facility] chidi [address] [place] [phone] [place], [place] [phone] Social History Tobacco Use Types Packs/Day Years [...] on filedocumented in this encounter Care Teams Mainspring Winder And Oiler Relationship Specialty Start Date End Date Aura Sandhu APRN, C.N.P., D.N.P. PCP - General 09/25/[address] [place] [phone] documented as of this encounter
--- OUTSIDE RECORDS SUMMARY | 2022-04-25 15:53 | XMS_ITS | Encounter Summary ---
:1975 Author Organization [facility] Address [address] [place] [address] Care Team Providers Name Role Phone Aura Sandhu APRN C.N.P., D.N.P. Primary Care Provider Encounter Details Date Type Department Care Team Description 07/18/2020 Nurse Triage Department of Family Torey Andrade R.N. Medicine, [facility], [place], [place] [address] [place] [phone] Social History Tobacco Use Types Packs/Day Years Used Date Smoking Tobacco: Never Smokeless Tobacco: Never Alcohol Use Standard Drinks/Week Comments Yes 0 (1 standard drink = 0.6 oz pure alcoho l) Sex Assigned at Date Recorded Not on file documented as of this encounter Miscellaneous Notes Telephone Encounter - Alex Andrade R.N. - 07/18/2020 6:25 PM CST Patient was taken off her Coumadin about three weeks ago and has been doing fine. She told her mom that her upper thighs were bruised in the front only as far as mom is aware. She hasn't had any type of injury that would cause the bruising. Patient is followed by Hematology/oncology at [facility] in [place] so SB was contacted and they will assist patient's mom in contacting provider business analyst sales operations for this department. CLERK documented in this encounter Plan of Treatment Not on filedocumented as of this encounter Visit Diagnoses Not on filedocumented in this encounter Care Teams Forestry Engineer Relationship Specialty Start Date End Date Aura Sandhu APRN, C.N.P., D.N.P. PCP - General 09/25/[id number] [phone] documented as of this encounter
--- OUTSIDE RECORDS SUMMARY | 2022-04-25 15:53 | XMS_ITS | Encounter Summary ---
:1975 Author Organization [facility] Address [address] [place] [address] Care Team Providers Name Role Phone Aura Sandhu APRN C.N.PMichael, D.N.P. Primary Care Provider Reason for Visit Appointment Request (Routine) - Closed Specialty Diagnoses / Procedures Referred By Contact Refer red To Contact Family Medicine Referral ID Status Reason Start Date Expiration Date Visits Requ ested Visits Authorized [id number] Closed 04/27/2021 04/27/2022 1 1 Encounter Details Date Type Department Care Team Description 05/05/2021 Immunization Department of [facility] Aura Sandhu, Medicine, [place] [facility], C.N .P., D.N.P. Clinic, in [address] [place], [place] [address] [phone] Social History Tobacco Use Types Packs/Day Years [...] on filedocumented in this encounter Care Teams Comptometrist Relationship Specialty Start Date End Date Aura Sandhu APRN, C.N.P., D.N.P. PCP - General 09/25/[id number] [phone] documented as of this encounter
--- OUTSIDE RECORDS SUMMARY | 2022-04-25 15:53 | XMS_ITS | Encounter Summary ---
:1975 Author Organization [facility] Address [address] [place] [address] Care Team Providers Name Role Phone Aura Sandhu APRN C.N.PMichael, D.N.P. Primary Care Provider Encounter Details Date Type Department Care Team Description 08/27/2019 Clinical Communication Department of Jus Foley, Dermatology in [place], [place] [address] [place] [phone] Social History Tobacco Use Types Packs/Day Years Used Date Smoking Tobacco: Never Smokeless Tobacco: Never Alcohol Use Standard Drinks/Week Comments Yes 0 (1 standard drink = 0.6 oz pure alcoho l) Sex Assigned at Date Recorded Not on file documented as of this encounter Miscellaneous Notes Telephone Encounter - Tanya Vergara - 08/27/2019 3:31 PM CST Reason for Communication: Patient called she is checking on the prescription refill for Calcipotriene ointment 0.005% - please call her back Current Can Nursing/Provider leave a detailed message: yes you can Did the patient refuse triage through Nurse line? (for symptom based concerns): na Action Needed: Please call her back Name of Medication (if relevant): Calcipotriene ointment 0.005% RVISOR EDUCATION documented in this encounter Plan of Treatment Not on filedocumented as of this encounter Visit Diagnoses Not on filedocumented in this encounter Care Teams Manager Fund Relationship Specialty Start Date End Date Aura Sandhu APRN, C.N.P., D.N.P. PCP - General 09/25/[address] [phone] documented as of this encounter
--- OUTSIDE RECORDS SUMMARY | 2022-04-25 15:53 | XMS_ITS | Encounter Summary ---
:1975 Author Organization [facility] Address [address] [place] [address] Care Team Providers Name Role Phone Aura Sandhu APRN, C.N.P., D.N.P. Primary Care Provider Reason for Visit Reason Comments Cough Encounter Details Date Type Department Care Team Description 08/29/2021 Nurse Triage Department of [facility] Erica Brothers C [facility], [facility], in [place], ([address] [phone] Social History Tobacco Use Types Packs/Day Years Used Date Smoking Tobacco: Never Smokeless Tobacco: Never Alcohol Use Standard Drinks/Week Comments Yes 0 (1 standard drink = 0.6 oz pure 1 wine cooler very occassionaly alcohol) Sex Assigned at Date Recorded Not on file documented as of this encounter Miscellaneous Notes Telephone Encounter - Erica Brothers RViktor - 08/29/2021 12:01 PM HAMPER MAKER MACHINE Chief Complaint / Reason for Call Patient is a 46 y.o. female calling regarding Cough. Assessment Home cares tried: Rest Calling to request: Advice. The recommended disposition is See a health care provider within 24 hours. Mom is planning to bring her to ED. Did offer her urgent care options and also to schedule an appointment for tomorrow, motherdeclined. Onset: about 9 days ago. Severity: Denies Sputum: Denies Difficulty breathing: Denies Fever: Denies Cardiac Hx: congenital heart defect. Lung hx: Denies. Other symptoms: Denies wheezing or chest pain. Reason for Disposition ??? [1] Continuous (nonstop) coughing interferes with work or school AND [2] no improvement using cough treatment per protocol Protocols used: COUGH - ACUTE [id number] Care Advice Patient/Caregiver understands and will follow care advice?: Yes, able to teach back SEE PCP WITHIN 24 HOURS: * IF OFFICE WILL BE OPEN: You need to be examined within the next 24 hours. Call your doctor (or SIZE STAMPER/PA) when the office opens and make an appointment. * IF OFFICE WILL BE CLOSED: You need to be seen within the next 24 hours. A clinic or an urgent carecenter is often a good source of care if your doctor's office is closed or you can't get an appointment. * IF PATIENT HAS NO PCP: Refer patient to a clinic or urgent care center. Also try to help caller find a PCP for future care. NOTE TO TRIAGER: * Use nurse judgment to select the most appropriate source of care. * Consider both the urgency of the patient's symptoms AND what resources may be needed to evaluate and manage the patient. COUGH MEDICINES: * OTC COUGH SYRUPS: The most common cough suppressant in OTC cough medications is dextromethorphan. Often the letters 'DM' appear in the name. * OTC COUGH DROPS: Cough drops can help a lot, especially for mild coughs. They reduce coughing by soothing your irritated throat and removing that tickle sensation in the back of the throat. Cough drops also have the advantage of portability - you can carry them with you. * HOME REMEDY - HARD CANDY: Hard candy works just as well as medicine-flavored OTC cough drops. People who have diabetes should use sugar-free candy. * HOME REMEDY - HONEY: This old home remedy has been shown to help decrease coughing at night. The adult dosage is 2 teaspoons (10 ml) at bedtime. Honey should not be given to infants under one year ofage. HUMIDIFIER: * If the air is dry, use a humidifier in the bedroom. * Dry air makes coughs worse. COUGHING SPELLS: * Drink warm fluids. Inhale warm mist. (Reason: both relax the airway and loosen up the phlegm) * Suck on cough drops or hard candy to coat the irritated throat. CALL BACK IF: * Difficulty breathing occurs * You become worse. ER MAKER MACHINE documented in this encounter Plan of Treatment Not on filedocumented as of this encounter Visit Diagnoses Not on filedocumented in this encounter Care Teams Patrol Inspector Relationship Specialty Start Date End Date uAra Sandhu APRN, C.N.P., D.N.P. PCP - General 09/25/[address] [place] [phone] documented as of this encounter
--- OUTSIDE RECORDS SUMMARY | 2022-04-25 15:53 | XMS_ITS | Encounter Summary ---
:1975 Author Organization [facility] Address [address] [place] [address] Care Team Providers Name Role Phone Aura Sandhu APRN C.N.P., D.N.P. Primary Care Provider Encounter Details Date Type Department Care Team Description 06/11/2021 Clinical Communication Department of [facility] Aura Sandhu, Medicine, [place] TETE, C.N.PMichael, Clinic, in [place] [address] [phone] Social History Tobacco Use Types Packs/Day Years Used Date Smoking Tobacco: Never Smokeless Tobacco: Never Alcohol Use Standard Drinks/Week Comments Yes 0 (1 standard drink = 0.6 oz pure 1 wine cooler very occassionaly alcohol) Sex Assigned at Date Recorded Not on file documented as of this encounter Miscellaneous Notes Telephone Encounter - Jenny Manzo - 06/11/2021 2:[address] 2021 PT order for this patient. Thank you! TRIC LINEMAN documented in this encounter Plan of Treatment Not on filedocumented as of this encounter Visit Diagnoses Not on filedocumented in this encounter Care Teams Damage Cutter Relationship Specialty Start Date End Date Aura Sandhu APRN, C.N.P., D.N.P. PCP - General 09/25/[address] [phone] documented as of this encounter
--- OUTSIDE RECORDS SUMMARY | 2022-04-25 15:53 | XMS_ITS | Encounter Summary ---
:1975 Author Organization [facility] Address [address] [place] [address] Care Team Providers Name Role Phone Aura Sandhu APRN C.N.P., D.N.P. 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 ([facility]); Laboratory Medicine M.DMichael Deficiency Protein S ([facility]) in [place], [address] [place], [place] 701 [facility] [address] [place], [place] [phone] (Work) [phone] Social History Tobacco Use Types Packs/Day Years Used Date Smoking Tobacco: Never Smokeless Tobacco: Never Alcohol Use Standard Drinks/Week Comments Yes 0 (1 standard drink = 0.6 oz pure alcoho l) Sex Assigned at Date Recorded Not on file documented as of this encounter Medications at Time of Discharge Medication Sig Dispensed Refills Start Date End Date amoxicillin (AMOXIL) 500 Take 4 capsules 12 capsule 10 2018 mg capsule (2,000 mg total) by mouth See Admin Instructions. Prior to dental appointments calcipotriene (DOVONEX) Apply to involved 60 g 2 03/03 0.005 % ointment areas on trunk and extremities once daily Mondays- chlorhexidine Take 15 mL by mouth 0 02/21/2016 (for_PERIDEX) 0.12 % at bedtime. mouthwash coal tar (PREM-GEL) 0.5 Apply 1 application 0 % shampoo topically every other day as needed for dandruff. multivitamin tablet Take 2 tablets by 0 3 mouth daily. clobetasoL (TEMOVATE) Apply sparingly to 60 g 0 201908/03/2020 0.05 % cream thicker plaques on trunk and extremities once daily for 1-2 weeks then stop. Avoid face and groin. mometasone (ELOCON) 0.1 Apply sparingly to 45 g 1 /01/202008/03/2020 % ointment involved areas on on trunk and extremities once daily Fridays-Sundays warfarin (COUMADIN) 3 mg Take 1.5mg (one half 90 tablet 3 0 01/30/2019 08/03/2020 tabletIndications: tab) on Mon, and 3mg Primary Hypercoagulation (one tab) all other Syndrome (HCC) days OR as directed by INR clinic. warfarin (for_COUMADIN) warfarin 2.5 mg oral 0 08/29/2021 2.5 mg tablet tablet See Instructions, 5mg Sun, Tues & Thurs, 2.5mg all other days or as directed per INR Clinic as of 09/29/2016, 30 tab(s) documented as of this encounter Plan of Treatment Not on filedocumented as of this encounter Procedures Procedure Name Priority Date/Time Associated Comments Diagnosis HC REF [facility] PROTHRMBIN Routine 07/14/2020 8:14 AM Results for this (F2) IRON CARRIER procedure are i n the results section. 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 SOLUBLE FIBRIN MONOMER Routine 07/13/2020 9:08 AM Results for this IRON CARRIER procedure are i n the results section. documented in this encounter Results Miscellaneous [facility] Testing (07/14/2020 8:14 AM IRON CARRIER) [facility] Method Time Signature Test Name Prothrombin (F2) 07/17/2020 [facility] c. *97G>A 9:50 AM IRON CARRIER ([id number]) Pat Result SEE COMMENT 07/24/2020 [facility] 2:28 PM IRON CARRIER Comment: For final report, select Lab-Send Out L ab Results hyperlink below. Specimen Anatomical Collection Method Collection Time Receive d Time (Source) Location / / Volume Laterality Varies 07/14/2020 8:14 AM 8:14 IRON CARRIER AM IRON CARRIER Narrative This result has an attachment that is no t available. Shawn Barton M.D. LAB MISC ORDERABLES Performing Organization Address City/State/ZIP Code Phon e Number [employer] [address] [place] [address] [place] [address] 500 [facility] Soluble Fibrin Monomer (07/13/2020 9:08 AM IRON CARRIER) athologist Signature Soluble Fibrin <5 <=8 mcg/mL 07/14/2020 DTL Monomer 10:16 AM IRON CARRIER Comment: ----ADDITIONAL INFORMATION---- This test was developed and its performa nce characteristics determined by [facility] in a manner co nsistent with CLIA requirements. This test has not bee n cleared or approved by the U.S. Food and Drug Admin istration. Specimen Anatomical Collection Method Collection Time Receive d Time (Source) Location / / Volume Laterality Blood 07/13/2020 9:08 AM 7:59 IRON CARRIER AM IRON CARRIER Shawn Barton M.D. LAB BLOOD NON ADD-ON Performing Organization Address City/State/ZIP Code Phon e Number [facility] - [address] [place], [place] [address] [facility] [place] [address] [facility] [address] (ABNORMAL) Thrombophilia Profile (07/13/2020 9:08 AM IRON CARRIER) athologist Signature Prothrombin Time 10.5 9.4 - 12.5 07/14/2020 DTL (PT), P sec 9:56 AM IRON CARRIER INR 1.0 0.9 - 1.1 07/14/2020 DTL 9:56 AM IRON CARRIER Comment: ----ADDITIONAL INFORMATION---- Standard intensity warfarin therapeutic range: 2.0 to 3.0 High intensity warfarin therapeutic rang e: 2.5 to 3.5 Activated Partial Thrombopl Time, 26 25 - 37 sec 06/26 9:58 AM IRON CARRIER DTL P DRVVT Screen Ratio 1.19 <1.20 ratio 07/14/2020 9:56 AM IRON CARRIER DTL Thrombin Time (Bovine), P 20.0 15.8 - 24.9 sec 07/14/19 21 9:56 AM IRON CARRIER DTL Fibrinogen, Clauss, P 390 200 - 500 mg/dL 07/14/2020 9 :49 AM IRON CARRIER DTL Comment: ----ADDITIONAL INFORMATION---- This test has been modified from the cherry fork Peerioacturer's instructions. Its performance characteri stics were determined by [facility] in a manner co nsistent with CLIA requirements. This test has not bee n cleared or approved by the U.S. Food and Drug Admin istration. D-DIMER, P 1031 (H) <=500 ng/mL FEU 07/14/2020 9:57 AM IRON CARRIER DTL Comment: ----ADDITIONAL INFORMATION---- D-dimer values less than or equal to 500 ng/mL fibrinogen equivalent units (FEU) may be used in co njunction with clinical pre-test probability to exclude deep vein thrombosis (DVT) and/or pulmonary emboli sm (PE). Antithrombin Activity, P 93 80 - 130 % 07/14/2020 9:4 9 AM IRON CARRIER DTL Comment: ----ADDITIONAL INFORMATION---- This test has been modified from the cherry fork Peerioacturer's instructions. Its performance characteri stics were determined by [facility] in a manner co nsistent with CLIA requirements. This test has not bee n cleared or approved by the U.S. Food and Drug Admin istration. Protein C Activity, P 162 (H) 70 - 150 % 07/14/2020 9:58 A M IRON CARRIER DTL Comment: ----ADDITIONAL INFORMATION---- This test has been modified from the cherry fork Peerioacturer's instructions. Its performance characteri stics were determined by [facility] in a manner co nsistent with CLIA requirements. This test has not bee n cleared or approved by the U.S. Food and Drug Admin istration. Protein S Ag, Free, P 75 50 - 160 % 07/14/2020 9:50 A M IRON CARRIER DTL Comment: ----ADDITIONAL INFORMATION---- This test has been modified from the cherry fork Peerioacturer's instructions. Its performance characteri stics were determined by [facility] in a manner co nsistent with CLIA requirements. This test has not bee n cleared or approved by the U.S. Food and Drug Admin istration. APCRV Ratio 3.0 >or=2.3 07/14/2020 9:48 AM IRON CARRIER DTL Reviewed By SAEED Bah 08/04/2020 3:03 PM IRON CARRIER DTL Prothrombin [id number] CANCELED Negative 07/16/2020 1:[address] DTL Mutation, B Comment: Result canceled by the [facility]. PTNT Interpretation CANCELED 07/16/2020 1:[address] DTL Comment: Result canceled by the [facility]. Thrombophilia REVISED REPORT: 08/04/2020 3:03 PM D TL Interpretation ?? IMPRESSION: 1) Elevated D-dimer; see comments and suggest clinical IRON CARRIER correlation. ?2) No identifiable congenital or acquired thrombotic d iathesis (thrombophilia) within limitations of test repertoire. ?3) If indicated for ad ditional thrombophilia assessment, consider testing for anticardiolipin and/or anti-beta 2 glycoprot ein I antibodies (IgG and IgM isotypes). ?4) Results of referred test component Prothrombin G2 0210A demonstrate that this individual DOES NOT have the prothrombin G00402V m utation. ??See comments. Testing performed at [facility] (CLIA# [id number]) [address] [place] [address]. ?COMMENTS: Fibrin D-dimer elevation is indicative of [...] reagent supply issues, component PTNT: Prothrom bin R06535C Mutation, Blood is unable to be performed at [facility] oratories. Results of referral test [test code FPF2V: Prothrombin (F2) D00980E Variant] demonstrate that this individual DOES NOT have the prothromb in F20756N mutation. Testing performed at [facility] (CLIA# [id number]) [address] [place] [address]. ?Note: ??Increased protein C activity is of [...] for DNA based testing for component Prothrombin B81907S has been forwarded to [facility] and an amended report will be issued [...] reagent supply issues, comp onent PTNT: Prothrombin N23475F Mutation, Blood is unable to be performe d; however, a blood specimen has been forwarded to [facility] (CLIA# [id number]) [address] [place] [address], an amended report will b e released. Interpretation of these results should be made within the clinic al context. ??If you wish to discuss these findings with a [facility] data quality consultant, please call [phone]. ?Note: ??Increased protein C activi ty is of unknown hemostatic significance., Flagged as: ??(Reported 0 07/21/2020 10:08) Specimen Anatomical Collection Method Collection Time Receive d Time (Source) Location / / Volume Laterality Blood (Blood, 07/13/2020 9:08 AM 07/14/19 7:59 Venous) IRON CARRIER AM IRON CARRIER Narrative [facility] - 08/04/2020 3:03 PM IRON CARRIER Specimen Information: Specimen ID: [id number] Specimen Type: Blood Specimen Collection Start Date: 07/13/19 ??9:08 AM Specimen Received Date: 07/14/2020 ??7:5 9 AM Specimen ID: [id number] Specimen Type: Blood Specimen Collection Start Date: 07/13/19 ??9:08 AM Specimen Received Date: 07/14/2020 ??7:5 8 AM Specimen ID: [id number] Specimen Type: Blood Specimen Collection Start Date: 07/13/19 ??9:08 AM Specimen Received Date: 07/14/2020 ??7:5 9 AM Specimen ID: [id number] Specimen Type: Blood Specimen Collection Start Date: 07/13/19 ??9:08 AM Specimen Received Date: 07/14/2020 ??7:5 9 AM Specimen ID: [id number] Specimen Type: Blood Specimen Collection Start Date: 07/13/19 ??9:08 AM Specimen Received Date: 07/14/2020 ??7:5 9 AM Specimen ID: [id number] Specimen Type: Blood Specimen Collection Start Date: 07/13/19 ??9:08 AM Specimen Received Date: 07/14/2020 ??8:1 4 AM Shawn Barton M.D. LAB BLOOD NON ADD-ON Performing Organization Address City/State/ZIP Code Phon e Number 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 PCP - General 09/25/[address] [place] [phone] documented as of this encounter
--- OUTSIDE RECORDS SUMMARY | 2022-04-25 15:53 | XMS_ITS | Encounter Summary ---
:1975 Author Organization [facility] Address [address] [place] [address] Care Team Providers Name Role Phone Aura Sandhu APRN C.N.PMichael, D.N.P. Primary Care Provider Encounter Details Date Type Department Care Team Description 09/25/2019 Clinical Communication Department of [facility] Iris Luther [facility], [place] Marsha PMichaelA.-C Michael [facility], [id number] [place] [address] [phone] (Work) [phone] Social History Tobacco Use Types Packs/Day Years [...] on filedocumented in this encounter Care Teams Belting And Webbing Inspector Relationship Specialty Start Date End Date Aura Sandhu APRN, C.N.P., D.N.P. PCP - General 09/25/[address] [place] [phone] documented as of this encounter
--- OUTSIDE RECORDS SUMMARY | 2022-04-25 15:53 | XMS_ITS | Encounter Summary ---
:1975 Author Organization [facility] Address [address] [place] [address] Care Team Providers Name Role Phone Aura Sandhu APRN, C.N.P., D.N.P. Primary Care Provider Encounter Details Date Type Department Care Team Description 09/25/2019 Orders Only Department of Dermatology in Jus Lawton M.D. [facility] chidi [address] [place] [phone] (Wo rk) Social History Tobacco Use Types [...] on filedocumented in this encounter Care Teams Track Repair Laborer Relationship Specialty Start Date End Date Aura Sandhu APRN, C.N.P., D.N.P. PCP - General 09/25/[address] [place] [phone] documented as of this encounter
--- OUTSIDE RECORDS SUMMARY | 2022-04-25 15:53 | XMS_ITS | Encounter Summary ---
:1975 Author Organization [facility] Address [address] [place] [address] Care Team Providers Name Role Phone Jacki Luther P.A.-C. Primary Care Provider [phone] Reason for Referral MRI/CAT/PET Scan (Routine) - Closed Specialty Diagnoses / Procedures Referred By Contact Refer red To Contact Radiology Diagnoses Abnormal Lung Chest Xray Tanya King C.N.PMichael [facility] Procedures CT Chest with IV Contrast [place] CT [facility] [address] [place], [place] [address] Referral ID Status Reason Start Date Expiration Date Visits Requ ested Visits Authorized [id number] Closed 09/10/2019 09/09/2020 1 1 Reason for Visit MRI/CAT/PET Scan (Routine) - Closed Specialty Diagnoses / Procedures Referred By Contact Refer red To Contact Radiology Diagnoses Abnormal Lung Chest Xray Tanya King C.N.PMichael [facility] Procedures CT Chest with IV Contrast [place] CT [facility] [address] [place], [place] [address] Referral ID Status Reason Start Date Expiration Date Visits Requ ested Visits Authorized [id number] Closed 09/10/2019 09/09/2020 1 1 Encounter Details Date Type Department Care Team Description 09/16/2019 Hospital [facility] in Seth Martinez C.N.P. [place], [place] [address] [address] [address] [place], [place] [phone] (Work) [phone] Social History Tobacco Use Types Packs/Day Years [...] See Admin Instructions. Prior to dental appointments chlorhexidine Take 15 mL by mouth 0 02/21/2016 (for_PERIDEX) 0.12 % at bedtime. mouthwash coal tar (PREM-GEL) 0.5 Apply 1 application 0 % shampoo topically every other day as needed for dandruff. multivitamin tablet Take 2 tablets by 0 3 mouth daily. calcipotriene (DOVONEX) APPLY SPARINGLY TO 60 g 1 10/201803/03/2020 0.005 % ointment THICK PLAQUES ON ARMS AND BUTTOCKS TWO TIMES A DAY ON MONDAYS - THURSDAYS DIRECTED calcipotriene (DOVONEX) APPLY SPARINGLY TO 60 g 3 08/201912/31/2019 0.005 % ointment THICK PLAQUES ON TRUNK & EXTREMITIES TWICE DAILY MONDAY-MONDAY carbamide peroxide Administer 5 drops 30 mL 1 9 12/31/2019 (DEBROX) 6.5 % otic into each ear 2 solution (two) times a day as needed for other (Ear wax). clobetasoL (TEMOVATE) Apply sparingly to 60 g 0 201908/03/2020 0.05 % cream thicker plaques on trunk and extremities once daily for 1-2 weeks then stop. Avoid face and groin. FLUORIDE, SODIUM, DENTAL Apply 1 application 0 12/31/2019 topically 2 (two) times a day. mometasone (ELOCON) 0.1 Apply sparingly to 45 g 4 05/2712/31/2019 % ointment thick plaques on trunk and extremities once daily for 2 weeks at a time mometasone (ELOCON) 0.1 APPLY SPARINGLY TO 45 g 2 06/2712/31/2019 % ointment THICK PLAQUES ON ARMS AND BUTTOCKS ONCE DAILY FRIDAYS-SUNDAYS mometasone (ELOCON) 0.1 Apply sparingly to 45 g 0 07/2803/03/2020 % ointment involved areas on arms and legs 2-3 times per week as needed to active areas of psoriasis mometasone (ELOCON) 0.1 Apply sparingly to 45 g 1 02/201912/31/2019 % ointment involved areas on trunk and extremities once daily Fridays-Sundays. mometasone (ELOCON) 0.1 Apply sparingly to 90 g 1 07/2712/31/2019 % ointment plaques on trunk and extremities once daily Monday-Sundays. Start after stopping clobetasol. warfarin (COUMADIN) 3 mg Take 1.5mg (one [...] Procedure Name Priority Date/Time Associated Comments Diagnosis CT CHEST WITH IV RAD - Routine 09/16/2019 11:31 Abnormal Lung Resul ts for this CONTRAST (most inpatients AM CDT Chest Xray procedure a re in and all the results outpatients) section. documented in this encounter Results CT Chest with IV Contrast (09/16/2019 11:31 AM CDT) Anatomical Region Laterality Modality Chest, Thoracic RST LOS, Thoracic ARZ LOS, Thoracic N/A Computed Tomography ARZ LOS, Thoracic FLA LOS Specimen (Source) Anatomical Collection Method Collection Time Re ceived Time Location / / Volume Laterality 09/16/2019 11:46 AM CDT Impressions 09/16/2019 11:50 AM CDT Patchy bilateral base predominant groundglass density with associated bronchial wall thickening could represent atypical pneumonitis, bronchitis/bronchiolitis and/or small airways disease and/or reac tive airways disease. Differential including less likely pulmonary edema. Narrative 09/16/2019 11:50 AM CDT EXAM: CT CHEST WITH IV CONTRAST 3D/MIPS: 3D Post-Processing performed on a dependent workstation. COMPARISON: None FINDINGS: Heart size within normal limit s. No pericardial effusion. No lymphadenopathy. No suspicious thyroid n odule. Patchy bilateral base predominant ground glass with mild lower lobe bronchial wall thickening. Scattered scarring/atel ectasis. No pleural effusion. No suspicious pulmonary nodules. Partially visualized structures in the u pper abdomen. Hepatic steatosis. Cholecystectomy. Symmetric adrenal gland s. No acute or suspicious findings in the b ones or soft tissues. Median sternotomy. Mild spondylosis. Procedure Note Lamont Lr M.D. - 09/16/2019Formattin g of this note might be different from the original. EXAM: CT CHEST WITH IV CONTRAST 3D/MIPS: 3D Post-Processing performed on a dependent workstation. COMPARISON: None FINDINGS: Heart size within normal limit s. No pericardial effusion. No lymphadenopathy. No suspicious thyroid n odule. Patchy bilateral base predominant ground glass with mild lower lobe bronchial wall thickening. Scattered scarring/atel ectasis. No pleural effusion. No suspicious pulmonary nodules. Partially visualized structures in the u pper abdomen. Hepatic steatosis. Cholecystectomy. Symmetric adrenal gland s. No acute or suspicious findings in the b ones or soft tissues. Median sternotomy. Mild spondylosis. IMPRESSION: Patchy bilateral base predominant ground glass density with associated bronchial wall thickening could represent atypical pneumonitis, bronchitis/bronchiolitis and/or small airways disease and/or reac tive airways disease. Differential including less likely pulmonary edema. Tanya BENNETT CT PROCEDURES documented in this encounter Visit Diagnoses Diagnosis Abnormal Lung Chest Xray documented in this encounter Administered Medications Inactive Administered Medications - up to 3 most recent administrations Medication Order MAR Action Action Date Dose Rate Site iohexoL 300 mg iodine/mL solution Given 09/16/2019 11:25 AM CDT 80 mL 80 mL (OMNIPAQUE) 80 mL, intravenous, Once in imaging, contrast, Starting on Mon09/16/19 at 1045, For 1 dose sodium chloride 0.9 % flush 80 mL Given 09/16/2019 11:26 AM CDT 80 mL 80 mL, intravenous, Once in imaging, line care, Starting on Mon09/16/19 at 1045, For 1 dose sodium chloride 0.9 % injection 10 mL Given 09/16/2019 11:26 AM CDT 10 mL 10 mL, intravenous, As needed, line care, Starting on Mon09/16/19 at 1045 documented in this encounter Care Teams Churn Operator Relationship Specialty Start Date End Date Jacki Luther P.A.-C. PCP - General Family Medicine 05/24/18 09/24/19 documented as of this encounter
--- OUTSIDE RECORDS SUMMARY | 2022-04-25 15:53 | XMS_ITS | Encounter Summary ---
:1975 Author Organization [facility] Address [address] [place] [address] Care Team Providers Name Role Phone Aura Sandhu APRN C.N.P., D.N.P. Primary Care Provider Encounter Details Date Type Department Care Team Description 08/03/2020 Hospital Encounter Department of Shawn Barton Defic iency Protein S Laboratory Medicine MMichaelDMichael ([facility]) in [place], [address] [place] [address] 701 [facility] [address] [place], [place] [phone] [phone] (Work) [phone] Social History Tobacco Use Types Packs/Day Years [...] 30 tab(s) documented as of this encounter Miscellaneous Notes Result Encounter Note - Shawn Barton M.D. - 08/03/2020 4:41 PM CST Sent no via the portal suggesting still elevated D-dimer. No clinical evidence of blood clot. Only concern is the active infection of her tooth. Recommended follow-up D-dimer after the tooth infection.If there is clinical evidence of blood clot, she will need to be on lifelong anticoagulation. UNTANT PROPERTY documented in this encounter Plan of Treatment Not on filedocumented as of this encounter Procedures Procedure Name Priority Date/Time Associated Diagnosis Comme nts D-DIMER, P Routine 08/03/2020 3:09 PM Deficiency Protein S R esults for this ACCOUNTANT PROPERTY (HCC) procedure are i n the results section . documented in this encounter Results (ABNORMAL) D-Dimer (08/03/2020 3:09 PM ACCOUNTANT PROPERTY) P athologist Signature D-Dimer, P 1071 (H) <=500 ng/mL 08/03/2020 [facility] FEU 3:25 PM ACCOUNTANT PROPERTY Comment: ----ADDITIONAL INFORMATION---- D-dimer values less than or equal to 500 ng/mL fibrinogen equivalent units (FEU) may be used in co njunction with clinical pre-test probability to exclude deep vein thrombosis (DVT) and/or pulmonary emboli sm (PE). Specimen Anatomical Collection Method Collection Time Receive d Time (Source) Location / / Volume Laterality Blood (Blood, 08/03/2020 3:09 PM 08/03/19 3:10 Venous) ACCOUNTANT PROPERTY PM ACCOUNTANT PROPERTY Shawn Barton M.D. LAB BLOOD ADD-ON Performing Organization Address City/State/ZIP Code Phon e Number [facility]- [address] [place], [place] [address] [place] [address] System in [place] [address] documented in this encounter Visit Diagnoses Diagnosis Deficiency Protein S (HCC) documented in this encounter Care Teams Duplicator Punch Operator Relationship Specialty Start Date End Date Aura Sandhu APRN, C.N.P., D.N.P. PCP - General 09/25/[address] [place] [phone] documented as of this encounter
--- OUTSIDE RECORDS SUMMARY | 2022-04-25 15:53 | XMS_ITS | Encounter Summary ---
:1975 Author Organization [facility] Address [address] [place] [address] Care Team Providers Name Role Phone Aura Sandhu APRN, C.N.P., D.N.P. Primary Care Provider Encounter Details Date Type Department Care Team Description 09/25/2020 Orders Only [facility] PCP [facility] Sa blanca Louise M.D. [address] [place], [place] [phone] (Wo rk) Social History [...] on filedocumented in this encounter Care Teams Filler In Relationship Specialty Start Date End Date Aura Sandhu APRN, C.N.P., D.N.P. PCP - General 09/25/[address] [place] [phone] documented as of this encounter
--- OUTSIDE RECORDS SUMMARY | 2022-04-25 15:53 | XMS_ITS | Encounter Summary ---
:1975 Author Organization [facility] Address [address] [place] [address] Care Team Providers Name Role Phone Aura Sandhu APRN C.N.P., D.N.P. Primary Care Provider Reason for Visit Reason Comments Cough 46 year old female admits wi th concerns of cough x 9 days. Pt has hx of pneumonia mom is concerned s he might have it. Encounter Details Date Type Department Care Team Description 08/29/2021 Emergency [place] [facility] Prasad Arteaga, Pneumonia (Primary Dx) Department P.A.-C. [address] [place] [address] FAINA [place], [place] [phone] Social History Tobacco Use Types Packs/Day Years [...] Comments Blood Pressure 116/60 08/29/2021 12:34 PM BUSINESS OBJECTS ANALYST Pulse 72 08/29/2021 12:34 PM BUSINESS OBJECTS ANALYST Temperature 36.4 ??C (97.5 ??F) 08/29/2021 12:34 PM BUSINESS OBJECTS ANALYST Respiratory Rate 18 08/29/2021 12:34 PM BUSINESS OBJECTS ANALYST Oxygen Saturation 95% 08/29/2021 12:34 PM BUSINESS OBJECTS ANALYST Inhaled Oxygen Concentration - - Weight 78.5 kg (173 lb 1 oz) 08/29/2021 12:36 PM BUSINESS OBJECTS ANALYST Height - - Body Mass Index 35.6 08/03/2020 2:19 PM BUSINESS OBJECTS ANALYST documented in this encounter Discharge Instructions Discharge InstructionsCrPrasad rosario P.A.-C. - 08/29/2021 1:50 PM BUSINESS OBJECTS ANALYST Use the antibiotics as prescribed. Robitussin for the cough. Come back if you worsen. NESS OBJECTS ANALYST AttachmentsThe following attachments cannot be sent through Care Everywhere. Community-Acquired Pneumonia Adult Hbqq-ia-Lobf (Brune[place])documented in this encounter Medications at Time of Discharge Medication Sig Dispensed Refills Start Date End Date amoxicillin (AMOXIL) Take 4 capsules (2,000 12 capsule 10 500 mg capsule mg total) by mouth See Admin Instructions. Prior to dental appointments calcipotriene (DOVONEX) Apply to involved areas 60 g 2 03/03/2020 0.005 % ointment on trunk and extremities once daily Mondays- chlorhexidine Take 15 mL by mouth at 0 02/21/2016 (for_PERIDEX) 0.12 % bedtime. mouthwash clobetasoL (TEMOVATE) 0 04/05/2021 0.05 % ointment coal tar (PREM-GEL) 0.5 Apply 1 application 0 % shampoo topically every other day as needed for dandruff. dexAMETHasone sodium 4 mL by iontophoretic 25 mL 0 04/27 phosphate 0.4 % route as needed solution (Plantar fasciitis pain). multivitamin tablet Take 2 tablets by mouth 0 04/2013 daily. documented as of this encounter ED Notes Prasad Arteaga P.A.-C. - 08/29/2021 1:50 PM CST SUBJECTIVE CHIEF COMPLAINT/REASON FOR VISIT Cough (46 year old female admits with concerns of cough x 9 days. Pt has hx of pneumonia mom is concerned she might have it.) HISTORY OF PRESENT ILLNESS Hue Medina is a 46-year-old female that presents with a cough. She has a history of trisomy 21 and presents with her mother who gives most of the history. Her mother states that she has been sick for about a week with a runny nose, sinus congestion and a cough. Today the cough seems to be worse and more frequent. She does have a history of pneumonia in the past. She denies much else for symptoms including fever, ENT symptoms, chest pain, shortness of breath, back pain, abdominal pain, nauseavomiting, diarrhea, rashes, leg pain or leg swelling. REVIEW OF SYSTEMS Constitutional: Negative for activity change, appetite change, chills, diaphoresis, fatigue and fever. HENT: Positive for postnasal drip, rhinorrhea and sore throat. Negative for congestion, ear pain andtrouble swallowing. Eyes: Negative for pain. Respiratory: Positive for cough. Negative for chest tightness, shortness of breath and wheezing. Cardiovascular: Negative for chest pain, palpitations and leg swelling. Gastrointestinal: Negative for abdominal pain, diarrhea, nausea and vomiting. Genitourinary: Negative for dysuria. Musculoskeletal: Negative for back pain, myalgias and neck pain. Skin: Negative for rash. Neurological: Negative for dizziness, light-headedness and headaches. Psychiatric/Behavioral: Negative for confusion. OBJECTIVE Initial Vitals Temperature Pulse Rate Heart Rate Resp Rate Blood Pressure SpO2 08/29/21 1234 08/29/21 1234 -- 08/29/21 1234 08/29/21 1234 08/29/21 1234 36.4 ??C 72 18 116/60 95 % Pain Score 08/29/21 1235 5 - Moderate pain PHYSICAL EXAMINATION Constitutional: Nursing note and vitals reviewed. Vital signs are normal. She is active. She does not appear ill. No distress. HENT: Head: Normocephalic and atraumatic. Right Ear: Hearing, tympanic membrane, external ear and ear canal normal. Left Ear: Hearing, tympanic membrane, external ear and ear canal normal. Nose: Rhinorrhea present. Mouth/Throat: Uvula is midline and oropharynx is clear and moist. Mucous membranes are moist. No oropharyngeal exudate. No tonsillar exudate. Eyes: Conjunctivae and lids are normal. Neck: Phonation normal. Cardiovascular: Normal rate. Pulmonary/Chest: Effort normal. No tachypnea. No respiratory distress. She has no wheezes. She has rhonchi in the left lower field. Musculoskeletal: Cervical back: No pain with movement. Neurological: Alert and oriented to person, place, and time. Normal speech. Skin: Skin is warm, dry and normal color. No rash noted. Psychiatric: She has a normal mood and affect. Relaxed. ASSESSMENT/PLAN IMPRESSION AND PLAN Hue Medina is a 46-year-old female who presents with a cough. She has been sick for about a week with URI type symptoms and more recently she has developed a worsening cough. She otherwise has been doing well and denies any fever, difficulty with eating or drinking or progressive weakness. On my exam she has normal vital signs and no hypoxia. She does have some very minor rhonchi at the left lower lobe. Otherwise lungs are clear. COVID-19 test was negative. Chest x-ray did not show any obvious infiltrates although it was an AP view. I do have some suspicion for early pneumonia given her history. I gave her an in statements prescription for Azithromycin and Augmentin. I also recommended Karan tussin for the cough. She will come back to the emergency department if she worsens. DIFFERENTIAL DIAGNOSIS Pneumonia, viral illness, pulmonary embolism, ACS, congestive heart failure, pneumothorax I reviewed previous medical records including documentation from previous visits. I personally reviewed the lab result(s) and my interpretation is normal. I personally reviewed the radiology image(s). The Radiology exam interpretation(s) is/are normal. ED Course as of 08/29/21 1432 Sun Aug 29, 2021 1313 SARS CoV-2, PCR, Rapid, V: Undetected Final Diagnoses: as of 08/29/21 1432 Pneumonia Prasad Arteaga, P.A.-C. 08/29/21 1437 NESS OBJECTS ANALYST documented in this encounter Plan of Treatment Not on filedocumented as of this encounter Procedures Procedure Name Priority Date/Time Associated Comments Diagnosis DX CHEST PORTABLE 1 RAD - Semiurgent 08/29/2021 12:58 Results for this VIEW (Fast; most ED PM BUSINESS OBJECTS ANALYST procedure are in patients; some the results inpatients) section. SARS CORONAVIRUS 2, STAT 08/29/2021 12:42 Resu lts for this PCR RAPID, V PM BUSINESS OBJECTS ANALYST procedure are i n the results section. documented in this encounter Results DX Chest Portable 1 View (08/29/2021 12:58 PM BUSINESS OBJECTS ANALYST) Anatomical Region Laterality Modality Chest, Thoracic RST LOS, Thoracic ARZ LOS, Thoracic N/A Computed Radiography FLA LOS Specimen (Source) Anatomical Collection Method Collection Time Re ceived Time Location / / Volume Laterality 08/29/2021 3:53 PM BUSINESS OBJECTS ANALYST Impressions 08/29/2021 3:54 PM BUSINESS OBJECTS ANALYST No focal pulmonary consolidation. Prior right pericardial fat pad, unchanged. Heart size within normal limits. Sternotomy. Compar greg CT September 16, 2019. Trace right fissural fluid and minimal basilar pulmonary interstitial o pacity could be traced pulmonary edema. Narrative 08/29/2021 3:54 PM BUSINESS OBJECTS ANALYST EXAM: DX CHEST PORTABLE 1 VIEW Procedure Note Darryn Jones M.D. - 08/29/2021Formattin g of this note might be different from the original. EXAM: DX CHEST PORTABLE 1 VIEW IMPRESSION: No focal pulmonary consolidation. Prior right pericardial fat pad, unchanged. Heart size within normal limits. Sternotomy. Compar greg CT September 16, 2019. Trace right fissural fluid and minimal basilar pulmonary interstitial o pacity could be traced pulmonary edema. Prasad Arteaga P.A.-C. IMG DIAGNOSTIC IMAGING PROCE [facility] SARS Coronavirus 2, PCR Rapid, V Symptomatic (08/29/2021 12:42 PM BUSINESS OBJECTS ANALYST) [facility] Method Time Signature SARS CoV-2, Undetected Undetected 08/29/2021 CNFL PCR, Rapid, V 1:11 PM BUSINESS OBJECTS ANALYST Comment: ----ADDITIONAL INFORMATION---- This RT-PCR test was performed using the Sam SARS-CoV-2 and Influenza A/B Reagent assay from [employer], which has received Emergency Use Authori zation(EUA) by the U.S. Food and Drug Administration . Fact sheets for this Emergency Use Autho rization (EUA) assay can be found at the following link s: For Healthcare Providers: https://www.fda.gov/media/812378/downloa d For Patients: https://www.fda.gov/media/654229/downloa d SARS Coronavirus 2, Source, Swab, Nasopharynx 11/2021 12:49 PM BUSINESS OBJECTS ANALYST CNFL Rapid Specimen Anatomical Collection Method Collection Time Receive d Time (Source) Location / / Volume Laterality Varies 08/29/2021 12:42 08/29/2021 (Nasopharynx) PM BUSINESS OBJECTS ANALYST 12:49 PM BUSINESS OBJECTS ANALYST Prasad Arteaga P.A.-C. LAB MICROBIOLOGY - GENERAL O RDERABLES Performing Organization Address City/State/ZIP Code Phon e Number [facility]- [address] [place] [address] [place] [address] [address] documented in this encounter Visit Diagnoses Diagnosis Pneumonia - Primary documented in this encounter Additional Health Concerns Infection Onset Date Last Indicated Resolved Time COVID19 Pending 08/29/2021 08/29/2021 08/29/2021 1:11 PM BUSINESS OBJECTS ANALYST documented as of this encounter Care Teams Estate Manager Relationship Specialty Start Date End Date Aura Sandhu APRN, C.N.P., D.N.P. PCP - General 09/25/[address] [place] [phone] documented as of this encounter
--- OUTSIDE RECORDS SUMMARY | 2022-04-25 15:53 | XMS_ITS | Encounter Summary ---
:1975 Author Organization [facility] Address [address] [place] [address] Care Team Providers Name Role Phone Aura Sandhu APRN C.N.P., D.N.P. Primary Care Provider Reason for Visit Physical Therapy (Routine) - Canceled Specialty Diagnoses / Procedures Referred By Contact Refer red To Contact Diagnoses Pain Heel Right Deyanira Weber APRN, [facility] Procedures PT Ongoing treatment C.N.P., D.N.P. [address] [place] [phone] Referral ID Status Reason Start Date Expiration Date Visits V isits Requested Authorized [id number] Canceled 04/30/2021 06/25/2021 99 99 Encounter Details Date Type Department Care Team Description 05/12/2021 Clinical Support Department of Deyanira Weber APRN, C.N.P., D.N.P. [address] [place] [phone] Pain Heel Right Rehabilitation Services Ximena Rodriguez, P.T. [address] [place] [phone] [phone] Social History Tobacco Use Types Packs/Day Years Used Date Smoking Tobacco: Never Smokeless Tobacco: Never Alcohol Use Standard Drinks/Week Comments Yes 0 (1 standard drink = 0.6 oz pure 1 wine cooler very occassionaly alcohol) Sex Assigned at Date Recorded Not on file documented as of this encounter Progress Notes Ximena Rodriguez P.T. - 05/12/2021 4:00 PM CST Physical Therapy Outpatient Treatment Note SUBJECTIVE Patient's Name: Hue Medina Referring Provider: Deyanira Weber APRN, C.* Visit Diagnosis: 1. Pain Heel Right Payor: [facility] / [facility] / Product Type: HMO / No data recorded Epic Visit Count: 3 Patient comments: Patient continues to report heel pain. Contact monitoring: PPE used during therapy: Therapist was wearing the following PPE throughout entire session: surgicalmask Patient was wearing a mask during therapy session: yes Additional Staff Present During Session: no OBJECTIVE Pain: heel pain continues. TREATMENT Treatment today consisted of: Initiated continuous ultrasound to the right heel at 1 megahertz 1.5 w per cm squared x8 minutes. ??Performed manual plantar fascia stretches to the right foot,??great toe stretches into extension as well as gastroc soleus stretches. Home Exercise Program/Education: Patient will continue with his exercises as provided by her provider. Patient will add in a gastroc soleus stretch in a long sitting position 2 repetitions holding for 30seconds x4 times per day. Pt reports good compliance with her HEP. Assessment Clinical Impression: Tolerated treatment session well. Continues to report pain. Tightness remains in the plantar fascia. Functional Goals and Timeframes: PT Goal #1: Patient will be able to ambulate without pain increase. PT Goal #1 Date: 06/11/21 PT Goal #2: Patient will demonstrate ankle eversion at a 5/5. PT Goal #2 Date: 06/11/21 PT Goal #3: Patient was safe independently perform an independent home exercise program. PT Goal #3 Date: 06/11/21 No data recorded Plan Plan for next session: continue with ultrasound and manual therapy. Time Spent with Patient Ultrasound (min): 8 min Manual Therapy (min): 16 min Time Calculation Total Timed Units (min): 24 min Total Treatment Time (min): 24 min T WIRE CHIEF documented in this encounter Plan of Treatment Not on filedocumented as of this encounter Visit Diagnoses Diagnosis Pain Heel Right documented in this encounter Care Teams Shrimp Trawler Captain Relationship Specialty Start Date End Date Aura Sandhu APRN, C.N.P., D.N.P. PCP - General 09/25/[address] [phone] documented as of this encounter
--- OUTSIDE RECORDS SUMMARY | 2022-04-25 15:53 | XMS_ITS | Encounter Summary ---
:1975 Author Organization [facility] Address [address] [place] [address] Care Team Providers Name Role Phone Aura Sandhu APRN C.N.PMichael, D.N.P. Primary Care Provider Reason for Referral Outpatient (Routine) - Closed Specialty Diagnoses / Procedures Referred By Contact Refer red To Contact Diagnoses Screening Mammogram Breast Cancer Aura Sandhu APRN, [facility] [place] [facility] Procedures BI Breast Screening Bilateral with Tomosynthesis C.N.P., D.N.P. [address] [place] [phone] Referral ID Status Reason Start Date Expiration Date Visits Requ ested Visits Authorized [id number] Closed 08/25/2021 08/25/2022 1 1 Reason for Visit Outpatient (Routine) - Closed Specialty Diagnoses / Procedures Referred By Contact Refer red To Contact Diagnoses Screening Mammogram Breast Cancer Aura Sandhu APRN, [facility] [place] [facility] Procedures BI Breast Screening Bilateral with Tomosynthesis C.N.P., D.N.P. [address] [place] [phone] Referral ID Status Reason Start Date Expiration Date Visits Requ ested Visits Authorized [id number] Closed 08/25/2021 08/25/2022 1 1 Encounter Details Date Type Department Care Team Description 10/25/2021 Hospital Encounter Department of Aura Sandhu Screen ing Mammogram Radiology in [place], GRILL COOK, Breast C [place], [place] C.N.P., D.N.P. [address] [phone] [place] [phone] Social History Tobacco Use Types Packs/Day [...] 04/2013 daily. documented as of this encounter Plan of Treatment Not on filedocumented as of this encounter Procedures Procedure Name Priority Date/Time Associated Comments Diagnosis BI BREAST SCREENING RAD - Routine 10/25/2021 2:32 Screening Resu lts for BILATERAL WITH (most inpatients PM CDT Mammogram Breast this procedure TOMOSYNTHESIS and all Cancer are in the outpatients) results section. documented in this encounter Results BI Breast Screening Bilateral with Tomosynthesis (10/25/2021 2:32 PM CDT) Anatomical Region Laterality Modality Breast, Breast Imaging RST LOS, Breast Imaging ARZ LOS, Amanda st Bilateral Mammography Imaging FLA LOS Specimen (Source) Anatomical Collection Method Collection Time Re ceived Time Location / / Volume Laterality 10/26/2021 12:01 PM CDT Impressions 10/26/2021 12:03 PM CDT Negative. RECOMMENDATION: ??Annual Screening Mammo gram ASSESSMENT: ??BI-RADS: 1: Negative. Narrative 10/26/2021 12:03 PM CDT EXAM: ??BI BREAST SCREENING BILATERAL WITH TOMOSYNTHESIS Current study was evaluated with a [employer] Synarc Aided Detection (CAD) system. INDICATION: ??Screening mammogram. COMPARISON: ??Prior exam(s) were availab le and reviewed for comparison. DENSITY: ??c. The breast(s) are heteroge neously dense, which may obscure small masses. FINDINGS: ??No mammographic findings of malignancy. Procedure Note Virgilio Cheatham M.D. - 10/26/2021Formatt ing of this note might be different from the original. EXAM: BI BREAST SCREENING BILATERAL WITH TOMOSYNTHESIS Current study was evaluated with a [employer]le[employer]inu Synarc Aided Detection (CAD) system. INDICATION: Screening mammogram. COMPARISON: Prior exam(s) were available and reviewed for comparison. DENSITY: c. The breast(s) are heterogene ously dense, which may obscure small masses. FINDINGS: No mammographic findings of ma lignancy. IMPRESSION: Negative. RECOMMENDATION: Annual Screening Mammogr am ASSESSMENT: BI-RADS: 1: Negative. Aura Sandhu APRN, C.N.P., D.N.P. IMG BI PROCEDURES documented in this encounter Visit Diagnoses Diagnosis Screening Mammogram Breast Cancer documented in this encounter Care Teams Glue Machine Operator Relationship Specialty Start Date End Date Aura Sandhu APRN, C.N.P., D.N.P. PCP - General 09/25/[address] [phone] documented as of this encounter
--- OUTSIDE RECORDS SUMMARY | 2022-04-25 15:53 | XMS_ITS | Encounter Summary ---
:1975 Author Organization [facility] Address [address] [place] [address] Care Team Providers Name Role Phone Aura Sandhu APRN C.N.P., D.N.P. Primary Care Provider Reason for Visit Physical Therapy (Routine) - Canceled Specialty Diagnoses / Procedures Referred By Contact Refer red To Contact Diagnoses Pain Heel Right Deyanira Weber APRN, [facility] Procedures PT Ongoing treatment C.N.P., D.N.P. [address] [place] [phone] Referral ID Status Reason Start Date Expiration Date Visits V isits Requested Authorized [id number] Canceled 04/30/2021 06/25/2021 99 99 Encounter Details Date Type Department Care Team Description 05/19/2021 Clinical Support Department of Deyanira Weber APRN, C.N.P., D.N.P. [address] [place] [phone] Pain Heel Right Rehabilitation Services Ximena Rodriguez, P.T. [address] [place] [phone] [phone] Social History Tobacco Use Types Packs/Day Years Used Date Smoking Tobacco: Never Smokeless Tobacco: Never Alcohol Use Standard Drinks/Week Comments Yes 0 (1 standard drink = 0.6 oz pure 1 wine cooler very occassionaly alcohol) Sex Assigned at Date Recorded Not on file documented as of this encounter Progress Notes Ximena Rodriguez P.T. - 05/19/2021 3:00 PM CST Physical Therapy Outpatient Treatment Note SUBJECTIVE Patient's Name: Hue Medina Referring Provider: Deyanira Weber APRN, C.* Visit Diagnosis: 1. Pain Heel Right Payor: [facility] / Plan: [facility] [employer] HMO / Product Type: HMO / No data recorded Epic Visit Count: 5 Patient comments: Patient continues to report heel pain. Contact monitoring: PPE used during therapy: Therapist was wearing the following PPE throughout entire session: surgicalmask Patient was wearing a mask during therapy session: yes Additional Staff Present During Session: no OBJECTIVE Pain: heel pain reported, unable to rate on pain scale TREATMENT Treatment today consisted of: Perform continuous ultrasound to the right heel 1 megahertz 1.5 w per cm squared x8 minutes. The perform manual plantar fascia stretches full stretches of the great toe into extension as gastroc soleusstretches. Performed prolonged holds on stretches 30-60 seconds. Home Exercise Program/Education: continue with current home program Pt reports good compliance with her HEP. Assessment Clinical Impression: Patient is demonstrating improved DF and improved plantar fascia mobility. Functional Goals and Timeframes: PT Goal #1: Patient will be able to ambulate without pain increase. PT Goal #1 Date: 06/11/21 PT Goal #2: Patient will demonstrate ankle eversion at a 5/5. PT Goal #2 Date: 06/11/21 PT Goal #3: Patient was safe independently perform an independent home exercise program. PT Goal #3 Date: 06/11/21 No data recorded Plan Plan for next session: Plan to trial iontophoresis with dexamethasone for pain control. Time Spent with Patient Ultrasound (min): 8 min Manual Therapy (min): 20 min Time Calculation Total Timed Units (min): 28 min Total Treatment Time (min): 28 min LETTER CARRIER documented in this encounter Plan of Treatment Not on filedocumented as of this encounter Visit Diagnoses Diagnosis Pain Heel Right documented in this encounter Care Teams Basketball Scout Relationship Specialty Start Date End Date Aura Sandhu APRN, C.N.P., D.N.P. PCP - General 09/25/[address] [phone] documented as of this encounter
--- OUTSIDE RECORDS SUMMARY | 2022-04-25 15:53 | XMS_ITS | Encounter Summary ---
:1975 Author Organization [facility] Address [address] [place] [address] Care Team Providers Name Role Phone Aura Snadhu APRN C.N.PMichael, D.N.P. Primary Care Provider Reason for Referral Outpatient (Routine) - Closed Specialty Diagnoses / Procedures Referred By Contact Refer red To Contact Diagnoses Screening Mammogram Breast Cancer [facility]ura Sandhu, [facility] Procedures BI Breast Screening Bilateral with Tomosynthesis C.N.P., D.N.P. [address] [place] [phone] Referral ID Status Reason Start Date Expiration Date Visits Requ ested Visits Authorized [id number] Closed 08/25/2021 08/25/2022 1 1 ITY CONTROL ENGINEER Encounter Details Date Type Department Care Team Description 08/25/2021 Orders Only [facility], Screening Mammogram TETE, C.N.P., Breast Cancer D.N.P. [address] [place] [phone] Social History Tobacco Use Types Packs/Day Years Used Date Smoking Tobacco: Never Smokeless Tobacco: Never Alcohol Use Standard Drinks/Week Comments Yes 0 (1 standard drink = 0.6 oz pure 1 wine cooler very occassionaly alcohol) Sex Assigned at Date Recorded Not on file documented as of this encounter Plan of Treatment Not on filedocumented as of this encounter Results BI Breast Screening Bilateral [...] TOMOSYNTHESIS Current study was evaluated with a EdCourageu ter Aided Detection (CAD) system. INDICATION: ??Screening mammogram. [...] TOMOSYNTHESIS Current study was evaluated with a EdCourageu ter Aided Detection (CAD) system. INDICATION: Screening mammogram. [...] Visit Diagnoses Diagnosis Screening Mammogram Breast Cancer Screening Mammogram Breast Cancer documented in this encounter Care Teams Relay Shop Tester Relationship Specialty Start Date End Date Aura Sandhu APRN C.N.P., D.N.P. PCP - General 09/25/[address] [place] [phone] documented as of this encounter
--- OUTSIDE RECORDS SUMMARY | 2022-04-25 15:53 | XMS_ITS | Encounter Summary ---
:1975 Author Organization [facility] Address [address] [place] [address] Care Team Providers Name Role Phone Aura Sandhu APRN, C.N.P., D.N.P. Primary Care Provider Reason for Visit Reason Comments Triage COVID Nurse Line Encounter Details Date Type Department Care Team Description 12/31/2019 Nurse Triage Department of Family Whit Hopkins Tr iage; COVID Nurse Medicine, [facility], in [address] [facility] [phone] [place] [address] [place], [place] (Work) [phone] Social History Tobacco Use Types Packs/Day Years Used Date Smoking Tobacco: Never Smokeless Tobacco: Never Alcohol Use Standard Drinks/Week Comments Yes 0 (1 standard drink = 0.6 oz pure alcoho l) Sex Assigned at Date Recorded Not on file documented as of this encounter Miscellaneous Notes Telephone Encounter - Whit Hopkins RMichaelN. - 12/31/2019 8:57 AM CDT COVID-19 Nurse Line Screening ASSESSMENT COVID 19 Screening Have you had close contact with a person who has a LABORATORY CONFIRMED case of COVID-19?: No - Continue screening. In the last 48 hours have you had any of the following symptoms?: No - Complete screening. Consider alternative diagnosis. We are not currently testing or isolating patients or visitors who have no symptoms and no close contact. PLAN Endpoint recommendation: Screening negative, testing not indicated at this time Care Points provided: STANDARD PRECAUTIONS FOR ALL PATIENTS: Wash hands often with soap and water for at least 20 seconds, especially after blowing your nose, coughing, sneezing, or having been in a public place. Avoid close contact with anyone who may be exhibiting respiratory symptoms such as coughing and sneezing. Avoid touching your eyes, nose and mouth. Clean and disinfect frequently touched surfaces daily. Cover your mouth and nose with a cloth face cover when around others or in public. The cloth face cover is not a substitute for social distancing. Continue to keep about 6 feet between yourself and others. Monitor for symptoms. Do not take your temperature within 30 minutes of exercise. Ifyour test or screen is negative and new symptoms develop please re-submit a new e- visit. EducationalResource: https://www.cdc.gov/coronavirus/2019-ncov/zidarii-ninhwtw-oqha/index.html Education: patient/caregiver Patient/caregiver able to teach back Patient agreeable to plan of care: Yes The following references were used: [facility] novel coronavirus (COVID- 19) resources documented in this encounter Plan of Treatment Not on filedocumented as of this encounter Visit Diagnoses Not on filedocumented in this encounter Care Teams Manager Business Process Relationship Specialty Start Date End Date Aura Sandhu APRN, C.N.P., D.N.P. PCP - General 09/25/[address] [place] [phone] documented as of this encounter
--- OUTSIDE RECORDS SUMMARY | 2022-04-25 15:53 | XMS_ITS | Encounter Summary ---
:1975 Author Organization [facility] Address [address] [place] [address] Care Team Providers Name Role Phone Aura Sandhu APRN, C.N.P., D.N.P. Primary Care Provider Encounter Details Date Type Department Care Team Description 06/01/2021 Orders Only [facility] Aura Sandhu, Scre ening Examination Diabetes Mellitus; MNT TETE, C.N.P., Hyperlipidemia Mixed D.N.P. [address] [phone] Social History Tobacco Use Types Packs/Day Years Used Date Smoking Tobacco: Never Smokeless Tobacco: Never Alcohol Use Standard Drinks/Week Comments Yes 0 (1 standard drink = 0.6 oz pure 1 wine cooler very occassionaly alcohol) Sex Assigned at Date Recorded Not on file documented as of this encounter Plan of Treatment Not on filedocumented as of this encounter Visit Diagnoses Diagnosis Screening Examination Diabetes Mellitus Hyperlipidemia Mixed documented in this encounter Care Teams Financial Quantitative Analyst Relationship Specialty Start Date End Date Aura Sandhu APRN, C.N.P., D.N.P. PCP - General 09/25/[address] [place] [phone] documented as of this encounter
--- OUTSIDE RECORDS SUMMARY | 2022-04-25 15:53 | XMS_ITS | Encounter Summary ---
:1975 Author Organization [facility] Address [address] [place] [address] Care Team Providers Name Role Phone Aura Sandhu APRN, C.N.PMichael, D.N.P. Primary Care Provider Reason for Referral Outpatient (Routine) - Closed Specialty Diagnoses / Procedures Referred By Contact Refer red To Contact Diagnoses Screening Mammogram Average Risk Patient Aura Sandhu APRN, [facility] [place] [facility] Procedures BI Breast Screening Bilateral with Tomosynthesis C.N.P., D.N.P. [address] [place] [phone] Referral ID Status Reason Start Date Expiration Date Visits Requ ested Visits Authorized [id number] Closed 06/29/2020 06/29/2021 1 1 TITUTE TEACHER Reason for Visit Outpatient (Routine) - Closed Specialty Diagnoses / Procedures Referred By Contact Refer red To Contact Diagnoses Screening Mammogram Average Risk Patient Aura Sandhu APRN, [facility] [place] [facility] Procedures BI Breast Screening Bilateral with Tomosynthesis C.N.P., D.N.P. [address] [place] [phone] Referral ID Status Reason Start Date Expiration Date Visits Requ ested Visits Authorized [id number] Closed 06/29/2020 06/29/2021 1 1 Encounter Details Date Type Department Care Team Description 08/03/2020 Hospital Encounter Department of Aura Sandhu Screen ing Mammogram Radiology in Yovanny Martinez, FARM MANAGEMENT TEACHER, Average Ris k Alejandrina Globe, [place] C.N.P., D.N.P. [address] [facility] [address] [place] [address] YOVANNY ANDRADE [facility] [phone] [place] [phone] Social History Tobacco Use Types Packs/Day [...] mg tablet tablet See Instructions, 5mg Sun, & Th, 2.5mg all other days or as directed per INR Clinic as of 09/29/2016, 30 tab(s) documented as of this encounter Plan of Treatment Not on filedocumented as of this encounter Procedures Procedure Name Priority Date/Time Associated Comments Diagnosis BI BREAST SCREENING RAD - Routine 08/03/2020 1:31 Screening Resu lts for BILATERAL WITH (most inpatients PM SUBSTITUTE TEACHER Mammogram Average this procedure TOMOSYNTHESIS and all Risk Patient are in the outpatients) results section. documented in this encounter Results BI Breast Screening Bilateral with Tomosynthesis (08/03/2020 1:31 PM SUBSTITUTE TEACHER) Anatomical Region Laterality Modality Breast, Breast Imaging RST LOS, Breast Imaging ARZ LOS, [address] Bilateral Mammography Imaging FLA LOS Specimen (Source) Anatomical Collection Method Collection Time Re ceived Time Location / / Volume Laterality 08/03/2020 1:46 PM SUBSTITUTE TEACHER Impressions 08/03/2020 1:49 PM SUBSTITUTE TEACHER Negative. RECOMMENDATION: ??Annual Screening Mammo gram ASSESSMENT: ??BI-RADS: 1: Negative. Narrative 08/03/2020 1:49 PM SUBSTITUTE TEACHER EXAM: ??BI BREAST SCREENING BILATERAL WITH TOMOSYNTHESIS Current study was evaluated with a [employer] Simply Hired Aided Detection (CAD) system. INDICATION: ??Screening mammogram. COMPARISON: ??Prior exam(s) were availab le and reviewed for comparison. DENSITY: ??c. The breast(s) are heteroge neously dense, which may obscure small masses. FINDINGS: ??No mammographic findings of malignancy. Procedure Note Jonnathan East M.D. - 08/03/2020Format ting of this note might be different from the original. EXAM: BI BREAST SCREENING BILATERAL WITH TOMOSYNTHESIS Current study was evaluated with a Compu ter Aided Detection (CAD) system. INDICATION: Screening [...] this encounter Visit Diagnoses Diagnosis Screening Mammogram Average Risk Patient documented in this encounter Care Teams Desk Pen Set Assembler Relationship Specialty Start Date End Date Aura Sandhu APRN, C.N.P., D.N.P. PCP - General 09/25/[id number] [phone] documented as of this encounter
--- OUTSIDE RECORDS SUMMARY | 2022-04-25 15:53 | XMS_ITS | Encounter Summary ---
:1975 Author Organization [facility] Address [address] [place] [address] Care Team Providers Name Role Phone Jacki Luther P.A.-C. Primary Care Provider Reason for Visit Reason Comments Please resolve Encounter Details Date Type Department Care Team Description 09/09/2019 Clinical Department of Sri Alas Please res olve Communication Anticoagulation in J Tejinder Coburn [facility] [phone] [place] [address] (Work) EFRAÍN JURADO [phone] Social History Tobacco Use Types Packs/Day Years Used Date Smoking Tobacco: Never Smokeless Tobacco: Never Alcohol Use Standard Drinks/Week Comments Yes 0 (1 standard drink = 0.6 oz pure alcoho l) Sex Assigned at Date Recorded Not on file documented as of this encounter Miscellaneous Notes Telephone Encounter - Love Medina R.N. - 09/09/2019 11:03 AM CDT Done Telephone Encounter - Sri Alas - 09/09/2019 10:45 AM CDT Patient is being managed by [facility], please resolve ACO episode. documented in this encounter Plan of Treatment Not on filedocumented as of this encounter Visit Diagnoses Not on filedocumented in this encounter Care Teams Catalogue Illustrator Relationship Specialty Start Date End Date Jacki Luther P.A.-C. PCP - General Family Medicine 05/24/18 09/24/19 documented as of this encounter
--- OUTSIDE RECORDS SUMMARY | 2022-04-25 15:53 | XMS_ITS | Encounter Summary ---
:1975 Author Organization [facility] Address [address] [place] [address] Care Team Providers Name Role Phone Aura Sandhu APRN, C.N.P., D.N.P. Primary Care Provider Reason for Visit Physical Therapy (Routine) - Closed Specialty Diagnoses / Procedures Referred By Contact Refer red To Contact Diagnoses Pain Heel Right Deyanira Weber APRN, [facility] Procedures PT Evaluate and treat C.N.P., D.N.P. [address] [place] [phone] Referral ID Status Reason Start Date Expiration Date Visits Requ ested Visits Authorized [id number] Closed 04/16/2021 06/25/2021 1 1 Encounter Details Date Type Department Care Team Description 04/30/2021 Comprehensive Visit Department of Deyanira Weber APRN, C.N.P., D.N.P. [address] [place] [phone] Pain Heel Right Rehabilitation Ximena Rodriguez, P.TMichael [address] [place] [phone] [address] [phone] Social History Tobacco Use Types Packs/Day Years Used Date Smoking Tobacco: Never Smokeless Tobacco: Never Alcohol Use Standard Drinks/Week Comments Yes 0 (1 standard drink = 0.6 oz pure 1 wine cooler very occassionaly alcohol) Sex Assigned at Date Recorded Not on file documented as of this encounter Consult Notes Ximena Rodriguez P.T. - 04/30/2021 3:30 PM CDT Consults Physical Therapy Outpatient Evaluation/Treatment By co-signing this note, the provider certifies the therapy being provided to this patient is reasonable and necessary for the diagnosis or treatment of this patient. SUBJECTIVE Patient's Name: Hue Medina Referring Provider: Deyanira Weber APRN, C.* Visit Diagnosis: 1. Pain Heel Right Payor: [facility] / Plan: [facility] [employer] 3[employer] HMO / Product Type: HMO / Beauty Works Visit Count: 1 PERTINENT MEDICAL / SURGICAL HISTORY: Patient Active Problem List Diagnosis ??? Thrombophlebitis Deep Vein Lower Extremity (HCC) ??? Defect Atrial Ventricular Canal Complete (HCC) ??? Hyperlipidemia Mixed ??? Trisomy 21 (HCC) ??? Tricuspid Valve Disorder Acquired ??? Regurgitation Mitral ??? Psoriasis ??? Impaired Fasting Glucose ??? Stenosis Mitral Congenital (HCC) ??? Menstrual Irregularity Past Surgical History: Procedure Laterality Date ??? ELBOW FX OR INTERNAL FIX Left 05/09/2016 elbow fx OR internal fix Notes: Left distal humerus open reduction, internal fixation ??? LAPAROSCOPIC CHOLECYSTECTOMY N/A 06/11/2014 Laparoscopic cholecystectomy ??? OTHER CONVERTED SHX (SEE COMMENT) N/A 03/29/2013 >1. Repair of complete AV canal defect. 2. Establishment of temporary extracorporeal ??? OTHER CONVERTED SHX (SEE COMMENT) N/A 05/10/2016 >Splint change. ??? OTHER SURGICAL HISTORY N/A 03/29/2013 AV - Atrioventricular valve operation Hue Medina is a 46 y.o. female who presents to outpatient physical therapy for evaluation. Her symptoms consist of: 1. Right Heel Pain Overall she reports her status is worsening . History of Present Illness: patient is a 46-year-old female who reports complaints of right heel pain. Patient reports her symptoms have been getting worse over time. Patient hurts with weight-bearing through the right heel. She reports morning is most extreme pain. Patient consult with orthopedic team is been diagnosed with plantar fasciitis. Relieving Factors: Nonweightbearing, gel heel cups, exercises and night splint. Previous Treatments: Patient's provider did start her with a night splint, massaging with a water bottle for tennis ball in various stretches. Patient has begun doing knees approximately 4 times per day. Prior Function: Patient reports 1 prior history of heel pain which did resolve. Patient is independent with ambulation. Patient goals: resolved pain Contact monitoring: PPE used during therapy: Therapist was wearing the following PPE throughout entire session: surgicalmask Patient was wearing a mask during therapy session: yes Additional Staff Present During Session: no OBJECTIVE PHYSICAL EXAM Pain: Patient is unable to rate her pain on a pain scale. Patient's pain appears to be moderate. Patient ambulates to physical therapy safely independently without the use an assistive device. Patient does have an antalgic gait pattern with decreased gait velocity. Ortho Exam Right ankle range of motion is actively within normal limits. Patient demonstrates normal great toe range of motion. Manual muscle testing right dorsiflexion 5/5, plantar flexion 5/5, inversion 5/5, eversion 4/5. Patient does demonstrate pes planus as well as hallux valgus. TREATMENT Treatment today consisted of: Initiated continuous ultrasound to the right heel at 1 megahertz 1.5 w per cm squared x8 minutes. Performed manual plantar fascia stretches to the right foot, great toe stretches into extension as wellas gastroc soleus stretches. Home Exercise Program/Education: Patient will continue with his exercises as provided by her provider. Patient will add in a gastroc soleus stretch in a long sitting position 2 repetitions holding for 30seconds x4 times per day. Patient was given written handout with illustrations. Patient demonstratedand verbalized understanding. Assessment Clinical Impression: Ms. Medina presents to physical therapy with signs and symptoms consistent with plantar fasciitis. Impairments: Pain and weakness. Functional deficits: Decreased positional activity tolerance with an antalgic gait. Rehab Potential: Ms. Medina has good potential to achieve established physical therapy goals within the time frame outlined below, provided she actively participates in her physical therapy treatment plan and home program. Functional Goals and Timeframes: PT Outpatient Goals PT Goal #1: Patient will be able to ambulate without pain increase. PT Goal #1 Date: 06/11/21 PT Goal #2: Patient will demonstrate ankle eversion at a 5/5. PT Goal #2 Date: 06/11/21 PT Goal #3: Patient was safe independently perform an independent home exercise program. PT Goal #3 Date: 06/11/21 Plan Ms. Medina was educated regarding evaluative findings, diagnosis, prognosis, potential risks and benefits of rehabilitation interventions. A collaborative effort was used to establish goals and plan of care. She was informed of her right to make decisions regarding her care, including refusal of examination or treatment or selection of services from another provider if desired. The treatment plan may be progressed or modified based upon her response to treatment. Treatment Plan: Start of Plan of Care: 04/30/2021 Number of Visits: up to 12 visits PT Duration: 6 weeks PT Frequency: 2 times per week Treatment interventions may include: Patient education, home exercise program, range of motion, stretching, strengthening, manual therapies, ultrasound and possibly iontophoresis with the use of dexamethasone. Plan for next session: Continue with ultrasound and manual therapy for stretching. Time Spent with Patient PT Eval - Low Complexity: 15 min Ultrasound (min): 8 min Manual Therapy (min): 15 min Time Calculation Total Timed Units (min): 23 min Total Treatment Time (min): 38 min ING AND STAMPING MACHINE OPERATOR documented in this encounter Plan of Treatment Not on filedocumented as of this encounter Visit Diagnoses Diagnosis Pain Heel Right documented in this encounter Care Teams Computer Aided Design Operator Relationship Specialty Start Date End Date Aura Sandhu APRN C.N.P., D.N.P. PCP - General 09/25/[address] [place] [phone] documented as of this encounter
--- OUTSIDE RECORDS SUMMARY | 2022-04-25 15:53 | XMS_ITS | Encounter Summary ---
:1975 Author Organization [facility] Address [address] [place] [address] Care Team Providers Name Role Phone Aura Sandhu APRN C.N.PMichael, D.N.P. Primary Care Provider Encounter Details Date Type Department Care Team Description 05/19/2021 Orders Only Department of Orthopedic Alyssa Mathew APRN, Surgery in [place], C.N.PMichael, D.N .P. [address] [phone] [place] [address] [phone] Social History Tobacco Use Types Packs/Day Years [...] on filedocumented in this encounter Care Teams Stem Roller Relationship Specialty Start Date End Date Aura Sandhu APRN, C.N.P., D.N.P. PCP - General 09/25/[address] [place] [address] [place] [phone] documented as of this encounter
--- OUTSIDE RECORDS SUMMARY | 2022-04-25 15:53 | XMS_ITS | Encounter Summary ---
:1975 Author Organization [facility] Address [address] [place] [address] Care Team Providers Name Role Phone Aura Sandhu APRN C.N.PMichael, D.N.P. Primary Care Provider Reason for Visit Reason Comments Rash Gential rash. Started this p ast weekend. No symptoms just noticed it. States there are bumps. Appointment Request (Routine) - Closed Specialty Diagnoses / Procedures Referred By Contact Refer red To Contact Family Medicine Referral ID Status Reason Start Date Expiration Date Visits Requ ested Visits Authorized [id number] Closed 12/31/2019 12/30/2020 1 1 Encounter Details Date Type Department Care Team Description 12/31/2019 Office Visit Department of Family Aura Sandhu, [facility] Medicine, [place] TETE, C.N.P., ([facility]) Clinic, in [place] [address] [phone] Social History Tobacco Use Types Packs/Day Years Used Date Smoking Tobacco: Never Smokeless Tobacco: Never Alcohol Use Standard Drinks/Week Comments Yes 0 (1 standard drink = 0.6 oz pure alcoho l) Sex Assigned at Date Recorded Not on file documented as of this encounter Last Filed Vital Signs Vital Sign Reading Time Taken Comments Blood Pressure 88/52 12/31/2019 1:52 PM CDT Pulse 72 12/31/2019 1:52 PM CDT Temperature 36.9 ??C (98.4 ??F) 12/31/2019 1:52 PM CDT Respiratory Rate 16 12/31/2019 1:52 PM CDT Oxygen Saturation 95% 12/31/2019 1:52 PM CDT Inhaled Oxygen Concentration - - Weight 74.4 kg (164 lb 0.4 oz) 12/31/2019 1:52 PM CDT Height - - Body Mass Index 34.9 04/20/2017 7:23 AM CDT documented in this encounter Progress Notes Aura Sandhu, TETE C.N.P., D.N.P. - 12/31/2019 2:00 PM CDT SUBJECTIVE CHIEF COMPLAINT/REASON FOR VISIT Hue Medina is a 44 y.o. female who presents for evaluation of Rash (Gential rash. Started this past weekend. No symptoms just noticed it. States there are bumps. ). HISTORY OF PRESENT ILLNESS Hue Medina presents with her mother for evaluation of genital rash. A pimple in her genitalarea was found several weeks ago and was popped by her mother. Since that time she has not complained of any symptoms. They were camping over the weekend, however were not swimming and were able to return home to shower each evening. Yesterday Zuleima reported that something was wrong in her genital area, but states there is no itching or pain. Mom looked at the area and noted a few bumps. She does not have any vaginal discharge, concerns for inappropriate sexual conduct or abuse, or sexually transmitted infections. REVIEW OF SYSTEMS A brief review of systems was negative except for that mentioned in the history of present of illness. CURRENT MEDICATIONS Current Outpatient Medications Medication Sig ??? amoxicillin (AMOXIL) 500 mg capsule Take 4 capsules (2,000 mg total) by mouth See Admin Instructions. Prior to dental appointments ??? calcipotriene (DOVONEX) 0.005 % ointment APPLY SPARINGLY TO THICK PLAQUES ON ARMS AND BUTTOCKS TWO TIMES A DAY ON MONDAYS - THURSDAYS DIRECTED ??? chlorhexidine (for_PERIDEX) 0.12 % mouthwash Take 15 mL by mouth at bedtime. ??? clobetasoL (TEMOVATE) 0.05 % cream Apply sparingly to thicker plaques on trunk and extremities once daily for 1-2 weeks then stop. Avoid face and groin. ??? coal tar (PREM-GEL) 0.5 % shampoo Apply 1 application topically every other day as needed for dandruff. ??? mometasone (ELOCON) 0.1 % ointment Apply sparingly to involved areas on arms and legs 2-3 times per week as needed to active areas of psoriasis ??? multivitamin tablet Take 2 tablets by mouth daily. ??? warfarin (COUMADIN) 3 mg tablet Take 1.5mg (one half tab) on Mon, and 3mg (one tab) all other days OR as directed by INR clinic. ??? warfarin (for_COUMADIN) 2.5 mg tablet warfarin 2.5 mg oral tablet See Instructions, 5mg Sun, Tues & Thurs, 2.5mg all other days or as directed per INR Clinic as of 09/29/2016, 30 tab(s) ALLERGIES/CONTRAINDICATIONS Allergies Allergen Reactions ??? Bee Venom Protein (Honey Bee) Other (see comments) BEES ??? Chloramphenicol Other (see comments) CHLORAMPHENICOL ??? Quinolones Other (see comments) QUINOLONES - ciloxan eye tts OBJECTIVE PHYSICAL EXAMINATION Vital Signs: BP (!) 88/52 (BP Location: Right arm, Patient Position: Sitting, Cuff Size: Regular) Pulse 72 Temp 36.9 ??C (Temporal) Resp 16 Wt 74.4 kg SpO2 95% BMI 34.90 kg/m?? Body mass index is 34.9 kg/m??. General: No acute distress. Pelvic: External genitalia has three noninflamed pustules. Pustule on the right has surrounding ecchymoses likely to local trauma from popping . ASSESSMENT / PLAN 1. Cyst Epidermal Discussed with patient and mom that there are several epidermal cysts on her external pubic area, likely caused by in grown hairs. She uses a loofa to clean herself, therefore was advised to begin changing out her loofa weekly, and to use an antibacterial soap. She can begin using a warm wet wash cloth on the area to promote drainage and healing if necessary. Discussed that there are no signs of infection at this time, and no areas requiring incision and drainage. Patient was instructed to follow up in primary care if symptoms are worsening or there is no improvement over the next several days. Plan was discussed with patient and is in agreement with plan. All questions were answered, side effects of any/all new medications were discussed. Patient left in no acute distress. Ready to learn. No apparent learning barriers were identified. Learning preferences include listening. Explained diagnosis and treatment plan. Patient/Child/Caregiver expressed understanding of the content. Aura Sandhu APRN, C.N.P., Valentina.N.P. documented in this encounter Plan of Treatment Not on filedocumented as of this encounter Visit Diagnoses Diagnosis Cyst Epidermal - Primary documented in this encounter Care Teams Mill Laborer Relationship Specialty Start Date End Date Aura Sandhu APRN, C.NAdriana., D.N.P. PCP - General 09/25/[address] [place] [phone] documented as of this encounter
--- OUTSIDE RECORDS SUMMARY | 2022-04-25 15:53 | XMS_ITS | Encounter Summary ---
:1975 Author Organization [facility] Address [address] [place] [address] Care Team Providers Name Role Phone Gaye Sandhuah Juan EPSTEIN C.N.PMichael, D.N.P. Primary Care Provider Reason for Referral Physical Therapy (Routine) - Closed Specialty Diagnoses / Procedures Referred By Contact Refer red To Contact Diagnoses Pain Heel Right Deyanira Weber, TETE, [facility] Procedures PT Evaluate and treat C.N.P., D.N.P. [address] [place] [phone] Referral ID Status Reason Start Date Expiration Date Visits Requ ested Visits Authorized [id number] Closed 04/16/2021 06/25/2021 1 1 Reason for Visit Reason Comments Pain Appointment Request (Routine) - Incomplete Specialty Diagnoses / Procedures Referred By Contact Refer red To Contact Referral ID Status Reason Start Date Expiration Date Visits V isits Requested Authorized [id number] Incomplete 03/15/2021 03/15/2022 1 1 Encounter Details Date Type Department Care Team Description 04/16/2021 Comprehensive Visit Department of Deyanira Weber, Pain Heel Right Orthopedic Surgery TETE, C.N.P., (Primary Dx) in [place], D.N.[address] [phone] [place], [place] [phone] (Work) [phone] Social History Tobacco Use Types Packs/Day Years Used Date Smoking Tobacco: Never Smokeless Tobacco: Never Alcohol Use Standard Drinks/Week Comments Yes 0 (1 standard drink = 0.6 oz pure 1 wine cooler very occassionaly alcohol) Sex Assigned at Date Recorded Not on file documented as of this encounter Progress Notes Deyanira Weber APRN, C.N.P., D.N.P. - 04/16/2021 8:00 AM CDT Zuleima is a very pleasant 46-year-old who has been struggling with heel pain for quite some time. She states progressively it seems to be getting worse. It hurts when she walks on it and notices the 1st step in the morning is extreme. She has had plantar fasciitis in the past and has gel heel cups that she is using in her shoes now. Physical exam-right foot with no particular swelling noted. She has quite flattened arches. She has tenderness over the calcaneus to palpation. Has full motion of her foot and toes as well as her ankle. She has no posterior pain around the Achilles tendon. 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 Hindfoot valgus and pes planus. Tiny plantar calcaneal spur. Impression and plan- Zuleima is a very pleasant 46-year-old who has plantar fasciitis of her right foot. Will have her work with physical therapy for evaluation and treatments with home exercises. We discussed in length various exercises and stretches that she needs to start her day with. We discussed ten nis ball and ice water bottle massage to her foot. She was also given a night splint to use regularly at night and demonstrated how to place this. She and her sister were given pamphlet and reviewed the above. I explained this is a very slow process for to resolve. She states that she understands thisplan. I will plan to see her back if she has no resolution of her symptoms. Zuleima and her sister's questions were answered documented in this encounter Plan of Treatment Not on filedocumented as of this encounter Results DX Foot Right 3+ [...] planus. Tiny plantar calcaneal spur. Deyanira Weber APRN C.N.P., D.N.P. IMG DIAGNOSTIC IMAG ING PROCEDURES documented in this encounter Visit Diagnoses Diagnosis Pain Heel Right - Primary Pain Heel Right documented in this encounter Care Teams Barrel Tester Relationship Specialty Start Date End Date Aura Sandhu APRN, C.N.P., D.N.P. PCP - General 09/25/[address] [place] [phone] documented as of this encounter
--- OUTSIDE RECORDS SUMMARY | 2022-04-25 15:54 | XMS_ITS | Encounter Summary ---
:1975 Author Organization [facility] Address [address] [place] [address] Care Team Providers Name Role Phone Jacki Luther P.A.-C. Primary Care Provider Encounter Details Date Type Department Care Team Description 08/01/2019 Hospital Encounter Department of Sherron Whelan Mammogram Radiology in [facility] Crist[place]ian [place], [place] P.A. [address] [place] [phone] Social History Tobacco Use Types Packs/Day Years [...] (DOVONEX) APPLY SPARINGLY TO 60 g 1 /10/201803/03/2020 0.005 % ointment THICK PLAQUES ON ARMS AND BUTTOCKS TWO TIMES A DAY ON MONDAYS - THURSDAYS DIRECTED calcipotriene (DOVONEX) APPLY SPARINGLY TO 60 g 1 04/2708/23/2019 0.005 % ointment THICK PLAQUES ON TRUNK & EXTREMITIES TWICE DAILY MONDAY-MONDAY carbamide peroxide Administer 5 drops 30 mL 1 9 12/31/2019 (DEBROX) 6.5 % otic into each ear 2 solution (two) times a day as needed for other (Ear wax). FLUORIDE, SODIUM, DENTAL Apply 1 application 0 [...] on trunk and extremities once daily Fridays-Sundays. warfarin (COUMADIN) 3 mg Take 1.5mg (one [...] as of this encounter Visit Diagnoses Diagnosis Abnormal Mammogram documented in this encounter Care Teams Personnel Research Scientist Relationship Specialty Start Date End Date Jacki Luther P.A.-C. PCP - General Family Medicine 05/24/18 09/24/19 documented as of this encounter
--- OUTSIDE RECORDS SUMMARY | 2022-04-25 15:54 | XMS_ITS | Encounter Summary ---
:1975 Author Organization [facility] Address [address] [place] [address] Care Team Providers Name Role Phone Jacki Luther P.A.-C. Primary Care Provider [phone] Encounter Details Date Type Department Care Team Description 08/27/2019 Hospital Encounter Department of Sherron Whelan Primary Hypercoagulation Syndrome (HCC); Laboratory Medicine Cristhian Simmons, Hiwot esposito For Therapeutic Drug Therapy; in [facility] A nticoagulant Treatment [address] [phone] Social History Tobacco Use Types Packs/Day [...] Name Priority Date/Time Associated Diagnosis Comme nts PROTHROMBIN TIME Routine 08/27/2019 3:07 Primary Hypercoagulat ion Results for this (PT), P PM HORSE STUD MANAGER Syndrome (HCC) procedure are in Monitoring For the results Therapeutic Drug Therapy section. [facility] Anticoagulant Treatment documented in this encounter Results (ABNORMAL) Prothrombin Time (PT) (08/27/2019 3:07 PM HORSE STUD MANAGER) [facility] Method Time Signature Prothrombin 61.7 (H) 9.4 - 12.5 08/27/2019 CNFL Time, P sec 3:25 PM HORSE STUD MANAGER INR 5.1 (CH) 0.9 - 1.1 08/27/2019 CNFL 3:25 PM HORSE STUD MANAGER Comment: ----ADDITIONAL INFORMATION---- Standard intensity warfarin therapeutic range: 2.0 to 3.0 ?? High intensity warfarin therapeutic rang e: 2.5 to 3.5 Specimen Anatomical Collection Method Collection Time Receive d Time (Source) Location / / Volume Laterality Blood (Blood, 08/27/2019 3:07 PM 08/27/19 20 3:09 Venous) HORSE STUD MANAGER PM HORSE STUD MANAGER Sherron Whelan P.A.-C., P.A. LAB BLOOD ADD-ON Performing Organization Address City/State/[facility] Code Phon e Number [facility]- [address] [place] [address] [place] [address] System in [address] documented in this encounter Visit Diagnoses Diagnosis Primary Hypercoagulation Syndrome (HCC) Monitoring For Therapeutic Drug Therapy Inspector Balance Truing (Current) Anticoagulant Treatm ent documented in this encounter Care Teams Coiled Tubing Supervisor Relationship Specialty Start Date End Date Jacki Luther P.A.-C. PCP - General Family Medicine 05/24/18 09/24/19 documented as of this encounter
--- OUTSIDE RECORDS SUMMARY | 2022-04-25 15:54 | XMS_ITS | Encounter Summary ---
:1975 Author Organization [facility] Address [address] [place] [address] Care Team Providers Name Role Phone Jacki Luther P.A.-C. Primary Care Provider [phone] Encounter Details Date Type Department Care Team Description 05/21/2019 Anticoagulation Visit Department of Marina Luther Hypercoagulation Syndrome (HCC); Anticoagulation in [place] For Therapeutic Drug Therapy; Seth Car P.A.-C. Retirement Anticoagulant Treatment; [address] Anticoagulant Therapy [address] [place] [address] [place] [phone] [place], [place] [phone] Social History Tobacco Use Types Packs/Day Years Used Date Smoking Tobacco: Never Smokeless Tobacco: Never Alcohol Use Standard Drinks/Week Comments Yes 0 (1 standard drink = 0.6 oz pure alcoho l) Sex Assigned at Date Recorded Not on file documented as of this encounter Progress Notes Nichole Bowers R.N. - 05/21/2019 2:30 PM CST Warfarin Maintenance Nursing Protocol Goal Range 2.0-3.0 (version approved 02/24/17) Visit Type: Patient presents for Wwfr-cf-Maum visit in Anticoagulation Service. Primary reason for visit: Routine f/u OR f/u per previous visit recommendations Information provided by: patient Inclusion Criteria: All inclusion criteria met. Proceeded to exclusion criteria. Exclusion Criteria: No exclusion criteria, proceeded to screening criteria. Screening Criteria: All screening criteria negative. Proceeded to maintenance warfarin dosing and follow-up Additional info: None Previous INR was therapeutic. Today???s INR is Therapeutic. Dosing and follow up recommendation: INR 2.0-3.0 No change in weekly dose. Next INR: 4-6 weeks (maximum) Pt on LMWH: No Patient Visit summary provided to: Patient provided with handout of warfarin dosing and next INR appointment. patient repeats back dosing instructions and has no further questions at this time. Patient is agreeable to the plan of care yes ICAL RESEARCH NURSE documented in this encounter Plan of Treatment Not on filedocumented as of this encounter Procedures Procedure Name Priority Date/Time Associated Diagnosis Comme nts INR, POCT, B Routine 05/21/2019 2:40 PM Results f or this CLINICAL RESEARCH NURSE procedure are i n the results section . documented in this encounter Results INR, POCT (05/21/2019 2:40 PM CLINICAL RESEARCH NURSE) P athologist Signature INR, POCT, B 2.1 05/21/2019 CNFL 2:40 PM CLINICAL RESEARCH NURSE Comment: ----ADDITIONAL INFORMATION---- Standard intensity warfarin therapeutic range: 2.0 to 3.0 ?? High intensity warfarin therapeutic rang e: 2.5 to 3.5 Specimen Anatomical Collection Method Collection Time Receive d Time (Source) Location / / Volume Laterality 05/21/2019 2:40 PM 9 2:42 CLINICAL RESEARCH NURSE PM CLINICAL RESEARCH NURSE Generic [facility]als LAB POCT ORDERABLES - DEVICE Performing Organization Address City/State/ZIP Code Phon e Number [facility]- [address] [place] [address] [place] [address] System in [address] documented in this encounter Visit Diagnoses Diagnosis Primary Hypercoagulation Syndrome (HCC) Monitoring For Therapeutic Drug Therapy Retirement (Current) Anticoagulant Treatm ent Anticoagulant Therapy documented in this encounter Care Teams Computer Operations Technician Relationship Specialty Start Date End Date Jacki Luther P.A.-C. PCP - General Family Medicine 05/24/18 09/24/19 documented as of this encounter
--- OUTSIDE RECORDS SUMMARY | 2022-04-25 15:54 | XMS_ITS | Encounter Summary ---
:1975 Author Organization [facility] Address [address] [place] [address] Care Team Providers Name Role Phone Jacki Luther P.A.-C. Primary Care Provider Reason for Visit Reason Comments Follow-up Outpatient (Routine) - Closed Specialty Diagnoses / Procedures Referred By Contact Refer red To Contact Dermatology Jus Foley M.D . [facility] Region [address] [place] [address] Referral ID Status Reason Start Date Expiration Date Visits Requ ested Visits Authorized [id number] Closed 06/27/2019 06/26/2020 1 1 Encounter Details Date Type Department Care Team Description 08/13/2019 Office Visit Department of Jus Foley, Psoriasis (Primary Dx) Dermatology in [place], [place] [address] [place] [phone] Social History Tobacco Use Types Packs/Day Years Used Date Smoking Tobacco: Never Smokeless Tobacco: Never Alcohol Use Standard Drinks/Week Comments Yes 0 (1 standard drink = 0.6 oz pure alcoho l) Sex Assigned at Date Recorded Not on file documented as of this encounter Progress Notes Jus Foley M.D. - 08/13/2019 2:30 PM CST CHIEF COMPLAINT Recheck psoriasis HISTORY OF THE PRESENT ILLNESS Hue Medina is a pleasant 44 y.o. [employer] worker who has Down syndrome but lives independently. She is??accompanied by her mother and presents for a recheck of psoriasis. During my initial visit with her on 04/23/18, she reported that she initially experienced psoriasis eruptions at the age of 12. She was treating the psoriasis with hjpu-wle-dtbunxo Oxipor 5% coal-tar lotion and symptoms were controlled with use. Apparently, the Oxipor lotion was discontinued per the pharmacy. Since the patient discontinued??use of the Oxipor lotion, she experienced increased psoriasis??eruptions to the legs, arms, trunk, buttocks and??scalp. She reported some associated itchiness to involved areas intermittently. As an alternative treatment, the patient was using T-gel shampoo to the scalp every other day; however, she did not experience improvement of symptoms. ?? During her initial visit on 04/23/18, the patient had widespread psoriasis with thicker plaques involving the buttock and arms. As I did not feel topical steroids would be sufficient treatment for the thick psoriasiform plaques, I recommended narrow band UVB phototherapy at [facility]. The patientand her mother were interested in this, but preferred to defer beginning treatment until after the conclusion of the patient's bowling season. I recommended Dovonex ointment twice daily to thicker plaques involving the buttock and arms for??Mondays through .??Additionally, I recommended Mometasone ointment used sparingly once daily to thick plaques involving buttock and arms Fridays through Sundays.?We intended to use the thicker plaques as target lesions to see how she responded prior to the phototherapy. At a follow up visit on 06/05/18, the patient reported that she had been using the Dovonex ointment twice daily to the arms and once daily to the buttocks Mondays through . She applied the mometasone ointment once daily to both the arms and buttocks Fridays through Sundays. They did not treatthe legs. On exam, the patient's psoriasis involving her arms had improved to slightly thinner plaques in areas where she was applying the Dovonex twice daily Monday- and mometasone once daily Monday-Monday. The thicker plaques involving the buttocks did not improve with Dovonex only once daily Monday- and mometasone once daily Fridays-Sundays. As noted above, we had previously discuss ed that topical treatments would not be sufficient to resolve the thick plaques so I recommended narrow band UVB phototherapy at [facility]. The patient and her mother declined this due to the driving distance and inquired about a home unit. Given that the patient has Down syndrome these treatments will need to be monitored and operated by her mom. The patient's mother inquired about whether thiswould be covered by her insurance. In the meantime, they continued the regimen of Dovonex and mometasone as described above. Subsequently on 08/16/18, the patient stated that she had been following the regimen as directed and her psoriasis has significantly improved. She also started applying over the counter MG 217 topical tar cream to her shoulders and hands, which resulted in marked improvement. Additionally, the patient recently returned from a trip to [place] where she received a significant amount of sun exposure. Theywere also able to get the home unit for narrowband UV therapy approved which reportedly would arrivelater that week. At that time, I recommended stopping the over the counter MG 217 topical tar. Dovonex was supposed to be used only on thicker plaques. For maintenance, I advised applying mometasone sparingly to arms and legs 2-3 times weekly at most. I advised against starting narrowband UV therapy then, due to concerning of burning skin and the fact that her psoriasis was quite mild at that time inFebruary. The patient reportedly initiated narrowband UV therapy on 09/23/18. She started at three sessions perweek, and progressively increased the length of each session. By 10/14/18, the sessions were lasting 3:00 minutes each. The patient then transitioned to using UV therapy on average twice weekly at 3:00 minutes duration for the remainder of spring and summer. There was one instance when she experienced significant skin burning. At that time, they temporarily discontinued UV therapy until resolution of burn. Then the patient restarted treatment at 1:30 per session and progressively went back up to 3:00per session. The patient had been using Dovonex once daily Mondays through , and mometasoneonce daily Fridays through Sundays. Subsequently on 03/04/19, the patient was recommended to discontinue the narrowband UVB therapy. She was advised to increase the Dovonex from once daily to twice daily Mondays through , as well as continue mometasone once daily Fridays through Sundays. During our last visit on 06/17/19, the patient reported the psoriasis has worsened since then. She had been adherent to her topical regimen which provided no relief. The patient had also been using T-gel for her scalp. At that visit, I recommended restarting the narrowband UVB therapy three times weekly per protocol with her home unit. I advised stopping the Dovonex and mometasone, as the medicationshad not been helpful for the psoriasis. The patient was asked to apply Vanicream twice daily over the involved areas. She was advised to continue using the T-gel for the psoriasis involving the scalp at least 3-4 times per week. Today, the patient states the psoriasis has not been improving. She restarted the narrowband UVB therapy on 06/16/19. She used the home unit three times per week, increasing the duration by six secondseach session. She is currently at a duration of 3 minutes and 26 seconds. She has not been burned onthe narrowband UVB therapy. She reports using the T-gel for the scalp only twice weekly instead of the recommended 3-4 times weekly, because she does not shower on a daily basis. She is otherwise adherent to her topical regimen as indicated above. ?? The patient and her mother both denies a prior history for psoriatic arthritis. The patient's sisterhas had arthritis and her aunt has had psoriatic arthritis. She has a history of Down's syndrome though is living independently. The patient also has a history of DVT??and previously underwent heart surgery. MEDICAL HISTORY 1. Down's syndrome, psoriasis, heart surgery and DVT 2. Negative for psoriatic arthritis FAMILY HISTORY 1. Arthritis in sister 2. Psoriatic arthritis in aunt PHYSICAL EXAM General: Awake, alert, in no acute distress, and with appropriate affect. Skin: Examination of the thighs reveals multiple thicker plaques with some scaling and mild post-inflammatory changes. Examination of the lower legs reveals thinning of the psoriatic plaques. Examination of the arms and elbows reveals thinning of the psoriatic plaques. Examination of the buttock reveals thinning of the psoriatic plaques. Examination of the scalp reveals mild scaling. No evidence for any pustules. No evidence for any burning of skin. IMPRESSION AND PLAN #1 Trunk and extremities: Plaque psoriasis, improved On clinical exam today, there are thicker plaques of psoriasis involving the thighs. The psoriasis involving the lower legs, arms, elbows and buttock has improved. Photographs taken again today with the patient's verbal consent. The chronic and recurrent nature of the condition was discussed with the patient. I recommend continuing the narrowband UVB therapy three times weekly per protocol with her home unit for another 4-6 weeks as she is been on it for approximately 6-7 weeks since restarting the phototherapy. We discussed that this treatment should not be implemented year-round but certainly at times of flare in the winter months she can use it. We recommended stopping treatment immediately if s he experiences burning of the skin. I have prescribed clobetasol cream which she can apply once daily to thicker plaques on trunk and extremities for 1-2 weeks then stop. After stopping the clobetasol cream, she will apply mometasone ointment once daily over the involved areas of psoriasis Fridays through Sundays as maintenance. We discussed potential side effects, which include thinning of the skin.I also recommend apply Vanicream a few times per week as needed for skin dryness. Follow up in 4-6 weeks for a recheck of the psoriasis. PATIENT EDUCATION Ready to learn. No apparent learning barriers were identified. Learning preferences include listening. Explained diagnosis and treatment plan; patient/guardian of patient expressed understanding of thecontent. By signing my name below, I, Mane Castaneda, attest that this documentation has been prepared under thedirection and in the presence of Jus Foley M.D. Electronically Signed: simeon Morgan. 08/13/2019. 10:07 AM SCRAP HOOKER. IJus M.D., personally performed the services described in this documentation. All medical record entries made by the scribe were at my direction and in my presence. I have reviewed the chart and discharge instructions (if applicable) and agree that the record reflects my personal performance and is accurate and complete. Jus Foley M.D. . 08/13/2019. 5:14 PM SCRAP HOOKER. P HOOKER documented in this encounter Plan of Treatment Not on filedocumented as of this encounter Visit Diagnoses Diagnosis Psoriasis - Primary documented in this encounter Care Teams Yarrow Gatherer Relationship Specialty Start Date End Date Jacki Luther P.A.-C. PCP - General Family Medicine 05/24/18 09/24/19 documented as of this encounter
--- OUTSIDE RECORDS SUMMARY | 2022-04-25 15:54 | XMS_ITS | Encounter Summary ---
:1975 Author Organization [facility] Address [address] [place] [address] Care Team Providers Name Role Phone Jacki Luther P.A.-C. Primary Care Provider Reason for Visit Reason Comments Med Refill Encounter Details Date Type Department Care Team Description 04/15/2019 Refill Department of Dermatology in [place] M.D. Med Refill [facility] peeled potato inspector [address] [place] [phone] [place], [place] [address] [phone] Social History Tobacco Use Types Packs/Day Years [...] on filedocumented in this encounter Care Teams Dynamic Balancer Set Up Worker Relationship Specialty Start Date End Date Jacki Luther P.A.-C. PCP - General Family Medicine 05/24/18 09/24/19 documented as of this encounter
--- OUTSIDE RECORDS SUMMARY | 2022-04-25 15:54 | XMS_ITS | Encounter Summary ---
:1975 Author Organization [facility] Address [address] [place] [address] Care Team Providers Name Role Phone Jacki Luther P.A.-C. Primary Care Provider Encounter Details Date Type Department Care Team Description 04/23/2019 Anticoagulation Visit Department of Marina Luther Hypercoagulation Syndrome (HCC); Anticoagulation in [place] For Therapeutic Drug Therapy; Seth Car P.A.-C. Assisted Anticoagulant Treatment; [address] Anticoagulant Therapy [address] [place] [address] [place] [phone] [place], [place] [phone] [id number] Social History Tobacco Use Types Packs/Day Years Used Date Smoking Tobacco: Never Smokeless Tobacco: Never Alcohol Use Standard Drinks/Week Comments Yes 0 (1 standard drink = 0.6 oz pure alcoho l) Sex Assigned at Date Recorded Not on file documented as of this encounter Progress Notes Nichole Bowers R.N. - 04/23/2019 2:30 PM CDT Warfarin Maintenance Nursing Protocol Goal Range 2.0-3.0 (version approved 02/24/17) Visit Type: Patient presents for Clqc-oe-Rlsc visit in Anticoagulation Service. Primary reason for [...] agreeable to the plan of care yes documented in this encounter Plan of Treatment Not on filedocumented as of this encounter Procedures Procedure Name Priority Date/Time Associated Diagnosis Comme nts INR, POCT, B Routine 04/23/2019 2:22 PM Results f or this CDT procedure are i n the results section . documented in this encounter Results INR, POCT (04/23/2019 2:22 PM CDT) P athologist Signature INR, POCT, B 2.6 04/23/2019 CNFL 2:22 PM CDT Comment: ----ADDITIONAL INFORMATION---- Standard intensity warfarin therapeutic range: 2.0 to 3.0 ?? High intensity warfarin therapeutic rang e: 2.5 to 3.5 Specimen Anatomical Collection Method Collection Time Receive d Time (Source) Location / / Volume Laterality 04/23/2019 2:22 PM 9 2:24 CDT PM CDT Generic [facility] LAB POCT ORDERABLES - DEVICE Performing Organization Address City/State/ZIP Code Phon e Number [facility]- [address] [place] [address] [place] [address] [address] documented in this encounter Visit Diagnoses Diagnosis Primary Hypercoagulation Syndrome (HCC) Monitoring For Therapeutic Drug Therapy Assisted (Current) Anticoagulant Treatm ent Anticoagulant Therapy documented in this encounter Care Teams Invisible Braces Orthodontist Relationship Specialty Start Date End Date Jacki Luther P.A.-C. PCP - General Family Medicine 05/24/18 09/24/19 documented as of this encounter
--- OUTSIDE RECORDS SUMMARY | 2022-04-25 15:54 | XMS_ITS | Encounter Summary ---
:1975 Author Organization [facility] Address [address] [place] [address] Care Team Providers Name Role Phone Jacki Luther P.A.-C. Primary Care Provider Reason for Visit Reason Comments Med Refill Encounter Details Date Type Department Care Team Description 08/23/2019 Refill Department of Dermatology in Jus Lawton M.D. Med Refill [facility] chidi [address] [place] [phone] [place], [place] [address] [phone] Social History Tobacco Use Types Packs/Day Years [...] on filedocumented in this encounter Care Teams Treating Engineer Helper Relationship Specialty Start Date End Date Jacki Luther P.A.-C. PCP - General Family Medicine 05/24/18 09/24/19 documented as of this encounter
--- OUTSIDE RECORDS SUMMARY | 2022-04-25 15:54 | XMS_ITS | Encounter Summary ---
:1975 Author Organization [facility] Address [address] [place] [address] Care Team Providers Name Role Phone Jacki Luther P.A.-C. Primary Care Provider Encounter Details Date Type Department Care Team Description 06/17/2019 Ancillary Procedure Department of Dermatology Social History Tobacco Use Types Packs/Day Years Used Date Smoking Tobacco: Never Smokeless Tobacco: Never Alcohol Use Standard Drinks/Week Comments Yes 0 (1 standard drink = 0.6 oz pure alcoho l) Sex Assigned at Date Recorded Not on file documented as of this encounter Plan of Treatment Not on filedocumented as of this encounter Procedures Procedure Name Priority Date/Time Associated Comments Diagnosis DERMATOLOGY IMAGE Routine 06/17/2019 3:45 PM Resu lts for this EXAM SYSTEM MANAGER procedure are i n the results section. documented in this encounter Results Generalized 500-Dermatology Image Exam (06/17/2019 3:45 PM SYSTEM MANAGER) Specimen (Source) Anatomical Collection Method Collection Time Re ceived Time Location / / Volume Laterality 06/17/2019 3:45 PM SYSTEM MANAGER Narrative [facility] - 06/17/2019 3:48 PM SYSTEM MANAGER This order has been created and auto-finalized to support the import of images acquired without order. The clini bro documentation to support these images can be found on the encounter bjorn t produced images. Provider Not In System IMG NON RAD IMAGING PROCEDUR ES Performing Organization Address City/State/ZIP Code Phon e Number [facility] NA documented in this encounter Visit Diagnoses Not on filedocumented in this encounter Care Teams Dairy Powder Mixer Operator Relationship Specialty Start Date End Date Jacki Luther P.A.-C. PCP - General Family Medicine 05/24/18 09/24/19 documented as of this encounter
--- OUTSIDE RECORDS SUMMARY | 2022-04-25 15:54 | XMS_ITS | Encounter Summary ---
:1975 Author Organization [facility] Address [address] [place] [address] Care Team Providers Name Role Phone Jacki Luther P.A.-C. Primary Care Provider Reason for Visit Reason Onset Date Comments UVB restart 06/18/2019 Encounter Details Date Type Department Care Team Description 06/18/2019 Clinical Communication Department of Jus Foley, UVB restart Dermatology in [place], [place] [address] [place] [phone] Social History Tobacco Use Types Packs/Day Years Used Date Smoking Tobacco: Never Smokeless Tobacco: Never Alcohol Use Standard Drinks/Week Comments Yes 0 (1 standard drink = 0.6 oz pure alcoho l) Sex Assigned at Date Recorded Not on file documented as of this encounter Miscellaneous Notes Telephone Encounter - Amalia Riley, LMichaelP.N. - 06/18/2019 8:[address] Foley I contacted [employer] @ [phone] to renew patients UVB narrowband home unit. It has been renewed for 75 treatments at 3 times a week. Patient is to use code 7995 to restart the machine. I contacted the patients mother with the renewal code for patients home light therapy unit for her psoriasis. Code is 7995. I did request she call and leave a message once patient has restarted the treatment as Dr. Kalaaji would like to see the patient 2 months after restart. Mom is agreeable to the plan. ET REPAIRER documented in this encounter Plan of Treatment Not on filedocumented as of this encounter Visit Diagnoses Not on filedocumented in this encounter Care Teams Gas Operations Analyst Relationship Specialty Start Date End Date Jacki Luther P.A.-C. PCP - General Family Medicine 05/24/18 09/24/19 documented as of this encounter
--- OUTSIDE RECORDS SUMMARY | 2022-04-25 15:54 | XMS_ITS | Encounter Summary ---
:1975 Author Organization [facility] Address [address] [place] [address] Care Team Providers Name Role Phone Jacki Luther P.A.-C. Primary Care Provider Reason for Visit Reason Comments Nurse Visit bp check and flu shot Appointment Request (Routine) - Closed Specialty Diagnoses / Procedures Referred By Contact Refer red To Contact Family Medicine Referral ID Status Reason Start Date Expiration Date Visits Requ ested Visits Authorized [id number] Closed 03/26/2019 03/25/2020 1 Encounter Details Date Type Department Care Team Description 04/02/2019 Nurse Only Department of Family Cora Luther PMichaelAMichael-CMichael [address] [place] [address] Nurse Visit (bp check Medicine, [place], Estefani Martinez R.N., [facility] and flu shot) Clinic, in [address] [phone] Social History Tobacco Use Types Packs/Day Years Used Date Smoking Tobacco: Never Smokeless Tobacco: Never Alcohol Use Standard Drinks/Week Comments Yes 0 (1 standard drink = 0.6 oz pure alcoho l) Sex Assigned at Date Recorded Not on file documented as of this encounter Last Filed Vital Signs Vital Sign Reading Time Taken Comments Blood Pressure 107/64 04/02/2019 2:50 PM CDT Pulse 74 04/02/2019 2:50 PM CDT Temperature - - Respiratory Rate - - Oxygen Saturation - - Inhaled Oxygen Concentration - - Weight - - Height - - Body Mass Index - - documented in this encounter Plan of Treatment Not on filedocumented as of this encounter Visit Diagnoses Not on filedocumented in this encounter Care Teams Tabber Relationship Specialty Start Date End Date Jacki Luther P.A.-C. PCP - General Family Medicine 05/24/18 09/24/19 documented as of this encounter
--- OUTSIDE RECORDS SUMMARY | 2022-04-25 15:54 | XMS_ITS | Encounter Summary ---
:1975 Author Organization [facility] Address [address] [place] [address] Care Team Providers Name Role Phone Jacki Luther P.A.-C. Primary Care Provider [phone] Reason for Referral Outpatient (Routine) - Closed Specialty Diagnoses / Procedures Referred By Contact Refer red To Contact Diagnoses Pain Knee Bilateral Deyanira Weber APRN, [facility] [place] [facility] Procedures jro-fzrq-sgrupcpv-elbow arthrocentesis: L knee joint DE ARTHCS ASP/INJ MJR JT WO US DE TRIAMCINOLONE ACETONIDE INJ C.N.P., D.N.P. [address] [place] [phone] Referral ID Status Reason Start Date Expiration Date Visits Requ ested Visits Authorized [id number] Closed 04/23/2019 04/22/2020 1 1 utpatient (Routine) - Closed Specialty Diagnoses / Procedures Referred By Contact Refer red To Contact Diagnoses Pain Knee Bilateral Deyanira Weber APRN, [facility] [place] [facility] Procedures buc-rlql-ayfdpvim-elbow arthrocentesis: R knee joint C.N.P., D.N.P. [address] [place] [phone] Referral ID Status Reason Start Date Expiration Date Visits Requ ested Visits Authorized [id number] Closed 04/23/2019 04/22/2020 1 1 Reason for Visit Reason Comments Pain Pain Appointment Request (Routine) - Closed Specialty Diagnoses / Procedures Referred By Contact Refer red To Contact Orthopedic Surgery Referral ID Status Reason Start Date Expiration Date Visits Requ ested Visits Authorized [id number] Closed 04/01/2019 03/31/2020 1 1 Encounter Details Date Type Department Care Team Description 04/23/2019 Office Visit Department of Deyanira Weber, Pain Knee B ilateral Orthopedic Surgery in [place], (Prim angela Dx) Rosa aCr D.N.P. [address] [phone] Social History Tobacco Use Types Packs/Day Years Used Date Smoking Tobacco: Never Smokeless Tobacco: Never Alcohol Use Standard Drinks/Week Comments Yes 0 (1 standard drink = 0.6 oz pure alcoho l) Sex Assigned at Date Recorded Not on file documented as of this encounter Progress Notes Deyanira Weber, [place], Valentina.N.P. - 04/23/2019 3:00 PM CDT Hue Medina is a pleasant 44 y.o. female who comes in for pain of her bilateral knee. She continues to have pain most noted with activity and is here today to discuss options. She has tried tdxi-ivi-nzsitua analgesics and activity modification without any significant improvement. ?? Physical exam in general patient appears nondistressed. bilateral knee has no signs or symptoms of an infection. There is 0-120?? flexion. Knee is stable to valgus and varus. Negative drawer sign. ?? Diagnostic studies- Xray of knee confirms degenerative arthritis of bilateral knee. ?? Impression and plan- Hue Medina is a very pleasant 44 y.o. who has a painful knee. She has tried conservative measures without improvement. We discussed treatment options. She would like to proceed with a cortisone injection. After brief discussion of benefits and risks, a consent form obtained , per sterile technique, using the lateral approach, a small amount of 1% lidocaine and 40 mg Kenalog was injected into the bilateral knee without difficulty. Had a bit more difficulty with the left kneewith initial injection but then was able to slide into the joint. Right knee with no difficulty. Stephania ent tolerated the procedure well. Will plan to see back in the following weeks if continues to be symptomatic. Questions were answered documented in this encounter Procedure Notes Lindsay Bah R.N. - 04/23/2019 3:00 PM CDTAssociated Order(s): aah-uhyb-ktyjasib-elbow arthrocentesis: R knee joint; hpf-krjp-trxtcenr-elbow ar throcentesis: L knee joint Post-Procedure Diagnose(s): Pain Knee Bilateral Knee site- R knee joint Date/Time: 04/23/2019 2:55 PM Performed by: Deyanira Weber APRN, C.N.P., D.N.P. Authorized by: Deyanira Weber APRN, C.N.P., D.N.P. PROCEDURE DETAILS Procedure Location knee Knee site: R knee joint Site prep: patient was prepped and draped in usual sterile fashion Procedural approach: anterolateral Needle gauge: 22 G Procedural Medication The following medications were administered at the target site(s) Local anesthetic: 5 mL lidocaine 10 mg/mL (1 %) Corticosteroid: 40 mg triamcinolone acetonide 40 mg/mL CONSENT Consent obtained: written PRE-PROCEDURE DETAILS Procedure purpose: therapeutic Skin preparation: povidone-iodine SEDATION / ANESTHESIA Anesthesia method: none POST-PROCEDURE DETAILS Procedure completed successfully: yes Complications: no apparent complications Post-procedure instructions: avoid strenuous activity for 5 days Discharge instructions: dressing care and follow-up with ordering provider Knee site- L knee joint Date/Time: 04/23/2019 2:56 PM Performed by: Deyanira Weber APRN, C.N.P., D.N.P. Authorized by: Deyanira Weber APRN, C.N.P., D.N.P. PROCEDURE DETAILS Procedure Location knee Knee site: L knee joint Procedural approach: anterolateral Needle gauge: 22 G Procedural Medication The following medications were administered at the target site(s) Local anesthetic: 5 mL lidocaine 10 mg/mL (1 %) Corticosteroid: 40 mg triamcinolone acetonide 40 mg/mL CONSENT Consent obtained: written PRE-PROCEDURE DETAILS Procedure purpose: therapeutic Skin preparation: povidone-iodine SEDATION / ANESTHESIA Anesthesia method: none POST-PROCEDURE DETAILS Procedure completed successfully: yes Complications: no apparent complications Post-procedure instructions: avoid strenuous activity for 5 days Discharge instructions: dressing care and follow-up with ordering provider documented in this encounter Plan of Treatment Not on filedocumented as of this encounter Procedures Procedure Name Priority Date/Time Associated Diagnosis Comme nts DE ARTHCS ASP/INJ Routine 04/23/2019 3:00 PM Pain Knee Bilater al Results for this MJR JT WO US CDT procedure are i n the results section. DE ARTHCS ASP/INJ Routine 04/23/2019 3:00 PM Pain Knee Bilater al Results for this MJR JT WO US CDT procedure are i n the results section. documented in this encounter Results DE ARTHCS ASP/INJ MJR JT WO US (04/23/2019 3:00 PM CDT) Narrative MMODAL - 04/23/2019 3:00 PM CDT Lindsay Bah R.N. ? 04/24/2019 ??7:56 AM Knee site- L knee joint Date/Time: 04/23/2019 2:56 PM Performed by: Deyanira Weber APRN, C.N. P., D.N.P. Authorized by: Deyanira Weber APRN, C.N .P., D.N.P. PROCEDURE DETAILS Procedure Location knee Knee site: L knee joint Procedural approach: anterolateral Needle gauge: 22 G Procedural Medication The following medications were administe red at the target site(s) Local anesthetic: 5 mL lidocaine 10 mg/m L (1 %) Corticosteroid: 40 mg triamcinolone acet onide 40 mg/mL CONSENT Consent obtained: written PRE-PROCEDURE DETAILS Procedure purpose: therapeutic Skin preparation: povidone-iodine SEDATION / ANESTHESIA Anesthesia method: none POST-PROCEDURE DETAILS Procedure completed successfully: yes Complications: no apparent complications ?? Post-procedure instructions: avoid stren uous activity for 5 days Discharge instructions: dressing care an d follow-up with ordering provider Danie García APRN.N.PMichael, D.N.PMichael PROCEDURE/MINOR MARY GICAL ORDERABLES Performing Organization Address [facility] Code Phon e Number MMODAL MMODAL NA DE ARTHCS ASP/INJ MJR JT WO US (04/23/2019 3:00 PM CDT) Narrative MMODAL - 04/23/2019 3:00 PM CDT Lindsay Bah R.N. ? 04/24/2019 ??7:56 AM Knee site- R knee joint Date/Time: 04/23/2019 2:55 PM Performed by: Deyanira Weber APRN, C.N. PMichael, D.N.P. Authorized by: Deyanira Weber APRN C.N .PMichael, D.N.P. PROCEDURE DETAILS Procedure Location knee Knee site: R knee joint Site prep: patient was prepped and drape d in usual sterile fashion ?? Procedural approach: anterolateral Needle gauge: 22 G Procedural Medication The following medications were administe red at the target site(s) Local anesthetic: 5 mL lidocaine 10 mg/m L (1 %) Corticosteroid: 40 mg triamcinolone acet onide 40 mg/mL CONSENT Consent obtained: written PRE-PROCEDURE DETAILS Procedure purpose: therapeutic Skin preparation: povidone-iodine SEDATION / ANESTHESIA Anesthesia method: none POST-PROCEDURE DETAILS Procedure completed successfully: yes Complications: no apparent complications ?? Post-procedure instructions: avoid stren uous activity for 5 days Discharge instructions: dressing care an d follow-up with ordering provider Deyanira Weber APRN C.N.PMichael, D.N.P. PROCEDURE/MINOR MARY GICAL ORDERABLES Performing Organization Address [facility] Phon e Number MMODAL MMODAL NA documented in this encounter Visit Diagnoses Diagnosis Pain Knee Bilateral - Primary documented in this encounter Administered Medications Inactive Administered Medications - up to 3 most recent administrations Medication Order MAR Action Action Date Dose Rate Site lidocaine 10 mg/mL (1 %) injection 5 Given 04/23/2019 2:55 PM CD T 5 mL mL (XYLOCAINE) 5 mL, infiltration, One-Time Injection, Starting on Mon04/23/19 at 1455, For 1 dose lidocaine 10 mg/mL (1 %) injection 5 mL Given 04/23/2019 2:56 PM CDT 5 mL (XYLOCAINE) 5 mL, infiltration, One-Time Injection, Starting on Mon04/23/19 at 1456, For 1 dose triamcinolone acetonide injection 40 mg Given 04/23/2019 2:55 PM CDT 40 mg (KENALOG-40) 40 mg, intra-articular, One-Time Injection, Starting on Mon04/23/19 at 1455, For 1 dose triamcinolone acetonide injection 40 mg Given 04/23/2019 2:56 PM CDT 40 mg (KENALOG-40) 40 mg, intra-articular, One-Time Injection, Starting on Mon04/23/19 at 1456, For 1 dose documented in this encounter Care Teams Benchroom Shop Optician Relationship Specialty Start Date End Date Jacki Luther P.A.-C. PCP - General Family Medicine 05/24/18 09/24/19 documented as of this encounter
--- OUTSIDE RECORDS SUMMARY | 2022-04-25 15:54 | XMS_ITS | Encounter Summary ---
:1975 Author Organization [facility] Address [address] [place] [address] Care Team Providers Name Role Phone Jacki Luther P.A.-C. Primary Care Provider Encounter Details Date Type Department Care Team Description 08/01/2019 Hospital Encounter Department of Sherron Whelan Mammogram Radiology in [facility] Cristhian [place], [place] P.A. [address] [place] [phone] Social History Tobacco Use Types Packs/Day Years [...] Priority Date/Time Associated Comments Diagnosis BI BREAST DIAGNOSTIC RAD - Routine 08/01/2019 2:12 Abnormal Res ults for LEFT WITH (most inpatients PM MOLD INSERT CHANGER Mammogram this proced ure TOMOSYNTHESIS and all are in the outpatients) results section. documented in this encounter Results BI Breast Diagnostic Left with Tomosynthesis (08/01/2019 2:12 PM MOLD INSERT CHANGER) Anatomical Region Laterality Modality Breast, Breast Imaging RST LOS, Breast Imaging ARZ LOS, Amanda st Left Mammography Imaging FLA LOS Specimen (Source) Anatomical Collection Method Collection Time Re ceived Time Location / / Volume Laterality 08/01/2019 2:43 PM MOLD INSERT CHANGER Impressions 08/01/2019 2:45 PM MOLD INSERT CHANGER No mammographic findings of malignancy. RECOMMENDATION: ??Annual Screening Mammo gram ASSESSMENT: ??BI-RADS: 1: Negative. Narrative 08/01/2019 2:45 PM MOLD INSERT CHANGER EXAM: ??BI BREAST DIAGNOSTIC LEFT WITH TOMOSYNTHESIS INDICATION: ??Abnormal screening mammogr am COMPARISON: ??Prior exam(s) were availab le and reviewed for comparison. DENSITY: ??c. The breast(s) are heteroge neously dense, which may obscure small masses. FINDINGS: ??Previously identified possib le mass or asymmetry in left breast middle depth, as visualized on screening mammogram does not persist on today's imaging. Findings are compatible with urrutia mmation artifact. Calcifications left breast laterally middle depth demonstrat e no suspicious morphology or distribution. Procedure Note Virgilio Cheatham M.D. - 08/01/2019Formatt ing of this note might be different from the original. EXAM: BI BREAST DIAGNOSTIC LEFT WITH SHIN OSYNTHESIS INDICATION: Abnormal screening mammogram COMPARISON: Prior exam(s) were available and reviewed for comparison. DENSITY: c. The breast(s) are heterogene ously dense, which may obscure small masses. FINDINGS: Previously identified possible mass or asymmetry in left breast middle depth, as visualized on screening mammogram does not persist on today's imaging. Findings are compatible with urrutia mmation artifact. Calcifications left breast laterally middle depth demonstrat e no suspicious morphology or distribution. IMPRESSION: No mammographic findings of malignancy. RECOMMENDATION: Annual Screening Mammogr am ASSESSMENT: BI-RADS: 1: Negative. Sherron Whelan P.A.-C. PMichaelAMichael IMG BI PROCEDURES documented in this encounter Visit Diagnoses Diagnosis Abnormal Mammogram documented in this encounter Care Teams Motorsports Technician Relationship Specialty Start Date End Date Jacki Luther P.A.-C. PCP - General Family Medicine 05/24/18 09/24/19 documented as of this encounter
--- OUTSIDE RECORDS SUMMARY | 2022-04-25 15:54 | XMS_ITS | Encounter Summary ---
:1975 Author Organization [facility] Address [address] [place] [address] Care Team Providers Name Role Phone Jacki Luther P.A.-C. Primary Care Provider [phone] Reason for Referral Outpatient (Routine) - Closed Specialty Diagnoses / Procedures Referred By Contact Refer red To Contact Dermatology Jus Foley M.D . [facility] [address] [place] [address] Referral ID Status Reason Start Date Expiration Date Visits Requ ested Visits Authorized [id number] Closed 06/27/2019 06/26/2020 1 1 Scheduling Instructions Please schedule for follow up on 08/13/19 20 @ 230-3pm ICAL SUPERVISOR Reason for Visit Reason Onset Date Comments Light therapy 06/20/2019 Encounter Details Date Type Department Care Team Description 06/20/2019 Clinical Communication Department of Jus Foley ht therapy Dermatology in Seth Cornejo M.D. [place], [place] [address] [phone] Social History Tobacco Use Types Packs/Day Years Used Date Smoking Tobacco: Never Smokeless Tobacco: Never Alcohol Use Standard Drinks/Week Comments Yes 0 (1 standard drink = 0.6 oz pure alcoho l) Sex Assigned at Date Recorded Not on file documented as of this encounter Miscellaneous Notes Telephone Encounter - Mai Carlson I. - 06/20/2019 10:20 AM CST Reason for Communication: Light therapy Current Can Nursing/Provider leave a detailed message: yes Did the patient refuse triage through Nurse line? (for symptom based concerns): na Action Needed: Hue was to let Dr Foley know when she started home light therapy. She began yesterday, 06/19/19. Name of Medication (if relevant): na ICAL SUPERVISOR documented in this encounter Plan of Treatment Scheduled Referrals Name Type Priority Associated Order Schedule Diagnoses Dermatology office Outpatient Referral Routine Ex pected: visit (clinic) 08/13/2019 (Approximate), Expires: 06/27/2022 documented as of this encounter Visit Diagnoses Not on filedocumented in this encounter Care Teams Grounding Engineer Relationship Specialty Start Date End Date Jacki Luther PMichaelAJayjay. PCP - General Family Medicine 05/24/18 09/24/19 documented as of this encounter
--- OUTSIDE RECORDS SUMMARY | 2022-04-25 15:54 | XMS_ITS | Encounter Summary ---
:1975 Author Organization [facility] Address [address] [place] [address] Care Team Providers Name Role Phone Jacki Luther P.A.-C. Primary Care Provider Encounter Details Date Type Department Care Team Description 08/13/2019 Ancillary Procedure Department of Dermatology Social History [...] Date/Time Associated Comments Diagnosis DERMATOLOGY IMAGE Routine 08/13/2019 2:59 PM Resu lts for this EXAM PAINTER DRUM procedure are i n the results section. documented in this encounter Results Generalized 500-Dermatology Image Exam (08/13/2019 2:59 PM PAINTER DRUM) Specimen (Source) Anatomical Collection Method Collection Time Re ceived Time Location / / Volume Laterality 08/13/2019 2:56 PM PAINTER DRUM Narrative [facility] - 08/13/2019 2:59 PM PAINTER DRUM This order has been created and auto-finalized [...] on filedocumented in this encounter Care Teams Assembler Billiard Table Relationship Specialty Start Date End Date Jacki Luther P.A.-C. PCP - General Family Medicine 05/24/18 09/24/19 documented as of this encounter
--- OUTSIDE RECORDS SUMMARY | 2022-04-25 15:54 | XMS_ITS | Encounter Summary ---
:1975 Author Organization [facility] Address [address] [place] [address] Care Team Providers Name Role Phone Jacki Luther P.A.-C. Primary Care Provider [phone] Encounter Details Date Type Department Care Team Description 07/18/2019 Hospital Encounter Department of Sherron Whelan Mammogram Radiology in [place] Cristhian Simmons, Average Risk Patient [place], [place] P.A. [address] [place] [phone] Social History Tobacco Use Types Packs/Day Years [...] mg tablet tablet See Instructions, 5mg Sun, Tu & Thurs, 2.5mg all other days or as directed per INR Clinic as of 09/29/2016, 30 tab(s) documented as of this encounter Plan of Treatment Not on filedocumented as of this encounter Procedures Procedure Name Priority Date/Time Associated Comments Diagnosis BI BREAST RAD - Routine 07/18/2019 3:02 Screening Results for this SCREENING (most inpatients PM COUNTY LIBRARY DIRECTOR Mammogram Average proced ure are in BILATERAL and all Risk Patient the results outpatients) section. documented in this encounter Results (ABNORMAL) BI Breast Screening Bilateral (07/18/2019 3:02 PM COUNTY LIBRARY DIRECTOR) Anatomical Region Laterality Modality Breast, Breast Imaging RST LOS, Breast Imaging ARZ LOS, Amanda st Bilateral Mammography Imaging FLA LOS Specimen (Source) Anatomical Collection Method Collection Time Re ceived Time Location / / Volume Laterality 07/19/2019 8:47 AM COUNTY LIBRARY DIRECTOR Impressions 07/19/2019 8:52 AM COUNTY LIBRARY DIRECTOR Incomplete. ??Need additional imaging evaluation. RECOMMENDATION: ??Additional Imaging ASSESSMENT: ??BI-RADS: 0 - Incomplete: N eeds Additional Imaging Evaluation. Narrative 07/19/2019 8:52 AM COUNTY LIBRARY DIRECTOR EXAM: ??BI BREAST SCREENING BILATERAL Current study was evaluated with a Compu ter Aided Detection (CAD) system. INDICATION: ??Screening mammogram. COMPARISON: ??Prior exam(s) were availab le and reviewed for comparison. DENSITY: ??c. The breast(s) are heteroge neously dense, which may obscure small masses. FINDINGS: ??Negative right breast. Possi ble mass or asymmetry left breast, middle depth. Finding is seen medial to the nip ple line on left cc view. Procedure Note Virgilio Cheatham M.D. - 07/19/2019Formatt ing of this note might be different from the original. EXAM: BI BREAST SCREENING BILATERAL Current study was evaluated with a Compu ter Aided Detection (CAD) system. INDICATION: Screening mammogram. COMPARISON: Prior exam(s) were available and reviewed for comparison. DENSITY: c. The breast(s) are heterogene ously dense, which may obscure small masses. FINDINGS: Negative right breast. Possibl e mass or asymmetry left breast, middle depth. Finding is seen medial to the nip ple line on left cc view. IMPRESSION: Incomplete. Need additional imaging eval uation. RECOMMENDATION: Additional Imaging ASSESSMENT: BI-RADS: 0 - Incomplete: Nee ds Additional Imaging Evaluation. Sherron Whelan P.A.-C., P.A. IMG BI PROCEDURES documented in this encounter Visit Diagnoses Diagnosis Screening Mammogram Average Risk Patient documented in this encounter Care Teams Relations Mgr Relationship Specialty Start Date End Date Luther, Jacki E, P.A.-C. PCP - General Family Medicine 05/24/18 09/24/19 documented as of this encounter
--- OUTSIDE RECORDS SUMMARY | 2022-04-25 15:54 | XMS_ITS | Encounter Summary ---
:1975 Author Organization [facility] Address [address] [place] [address] Care Team Providers Name Role Phone Jacki Luther P.A.-C. Primary Care Provider Reason for Visit Reason Comments Med Refill Encounter Details Date Type Department Care Team Description 05/21/2019 Refill Department of Dermatology in Jus Lawton M.D. Med Refill [facility] chidi [address] [place] [phone] [place], [place] [address] [phone] Social History Tobacco Use Types Packs/Day Years [...] on filedocumented in this encounter Care Teams Section Laborer Relationship Specialty Start Date End Date Jacki Luther P.A.-C. PCP - General Family Medicine 05/24/18 09/24/19 documented as of this encounter
--- OUTSIDE RECORDS SUMMARY | 2022-04-25 15:54 | XMS_ITS | Encounter Summary ---
:1975 Author Organization [facility] Address [address] [place] [address] Care Team Providers Name Role Phone Jacki Luther P.A.-C. Primary Care Provider [phone] Encounter Details Date Type Department Care Team Description 07/29/2019 Anticoagulation Visit Department of Marina Luther Hypercoagulation Syndrome (HCC); Anticoagulation in [place] For Therapeutic Drug Therapy; Seth Car P.A.-C. Group Home Anticoagulant Treatment; [address] Anticoagulant Therapy [address] [place] [address] [place] [phone] [place], [place] [phone] Social History Tobacco Use Types Packs/Day Years Used Date Smoking Tobacco: Never Smokeless Tobacco: Never Alcohol Use Standard Drinks/Week Comments Yes 0 (1 standard drink = 0.6 oz pure alcoho l) Sex Assigned at Date Recorded Not on file documented as of this encounter Progress Notes Nichole Bowers, Sukh - 07/29/2019 2:30 PM CST Warfarin Maintenance Nursing Protocol Goal Range 2.0-3.0 (version approved 02/24/17) Visit Type: Patient presents for Qkgk-mm-Wefe visit in Anticoagulation Service. Primary reason for [...] agreeable to the plan of care yes ARCHITECT documented in this encounter Plan of Treatment Not on filedocumented as of this encounter Procedures Procedure Name Priority Date/Time Associated Diagnosis Comme nts INR, POCT, B Routine 07/29/2019 2:21 PM Results f or this SSIS ARCHITECT procedure are i n the results section . documented in this encounter Results INR, POCT (07/29/2019 2:21 PM SSIS ARCHITECT) P athologist Signature INR, POCT, B 2.2 07/29/2019 CNFL 2:21 PM SSIS ARCHITECT Comment: ----ADDITIONAL INFORMATION---- Standard intensity warfarin therapeutic range: 2.0 to 3.0 ?? High intensity warfarin therapeutic rang e: 2.5 to 3.5 Specimen Anatomical Collection Method Collection Time Receive d Time (Source) Location / / Volume Laterality 07/29/2019 2:21 PM 0 2:22 SSIS ARCHITECT PM SSIS ARCHITECT Generic [facility] POCT ORDERABLES - DEVICE Performing Organization Address City/State/ZIP Code Phon e Number [facility] [address] [place] [address] [place] [address] System [address] documented in this encounter Visit Diagnoses Diagnosis Primary Hypercoagulation Syndrome (HCC) Monitoring For Therapeutic Drug Therapy Group Home (Current) Anticoagulant Treatm ent Anticoagulant Therapy documented in this encounter Care Teams Secondary Education Professor Relationship Specialty Start Date End Date Jacki Luther P.A.-C. PCP - General Family Medicine 05/24/18 09/24/19 documented as of this encounter
--- OUTSIDE RECORDS SUMMARY | 2022-04-25 15:54 | XMS_ITS | Encounter Summary ---
:1975 Author Organization [facility] Address [address] [place] [address] Care Team Providers Name Role Phone Jcaki Luther P.A.-C. Primary Care Provider [phone] Reason for Visit Reason Comments Psoriasis Outpatient (Routine) - Closed Specialty Diagnoses / Procedures Referred By Contact Refer red To Contact Dermatology Jus Foley M.D . [facility] [address] [place] [address] Referral ID Status Reason Start Date Expiration Date Visits Requ ested Visits Authorized [id number] Closed 03/04/2019 03/03/2020 1 1 Encounter Details Date Type Department Care Team Description 06/17/2019 Office Visit Department of Jus Foley, Psoriasis (Primary Dx) Dermatology in [place], [place] [address] [phone] Social History Tobacco Use Types Packs/Day Years Used Date Smoking Tobacco: Never Smokeless Tobacco: Never Alcohol Use Standard Drinks/Week Comments Yes 0 (1 standard drink = 0.6 oz pure alcoho l) Sex Assigned at Date Recorded Not on file documented as of this encounter Progress Notes Jus Foley M.D. - 06/17/2019 3:15 PM CST CHIEF COMPLAINT Recheck psoriasis HISTORY OF THE PRESENT ILLNESS Hue Medina is a pleasant 44 y.o. [place] [employer] worker who has Down syndrome but lives independently. She is??accompanied by her mother and presents for a recheck of psoriasis. During my initial visit with her on 04/23/18, she reported that she initially experienced psoriasis eruptions at the age of 12. She was treating the psoriasis with dbxk-pus-hjguvjd Oxipor 5% coal-tar lotion and symptoms were [...] I recommended narrow band UVB phototherapy at [facility]. The patientand her mother were interested [...] she responded prior to the phototherapy. At follow up visit on 06/05/18, the patient reported that she had been using the Dovonex ointment twice daily to the arms and once daily to the buttocks Mondays through . She applied the mometasone ointment once daily to both the arms and buttocks Fridays through Sundays. They did not treat the legs. On exam, the patient's psoriasis involving her arms had improved to slightly thinner plaquesin areas where she was applying the Dovonex twice daily Monday- and mometasone once daily Monday-Monday. The thicker plaques involving the buttocks did not improve with Dovonex only once daily Monday- and mometasone once daily Fridays-Sundays. As noted above, we had previously discussed that topical treatments would not be sufficient to resolve the thick plaques so I recommended narrow band UVB phototherapy at [facility]. The patient and her mother declined this due to the driving distance and inquired about a home unit. Given that the patient has Down syndrome these treatments w ill need to be monitored and operated by her mom. The patient's mother inquired about whether this would be covered by her insurance. In the [...] patient recently returned from a trip to [place] where she received a significant amount of [...] , and mometasoneonce daily Fridays through Sundays. During our last visit on 03/04/19, the patient was recommended to discontinue the narrowband UVB therapy. She was advised to increase the Dovonex from once daily to twice daily Mondays through ,as well as continue mometasone once daily Fridays through Sundays. Today, the patient reports the psoriasis has worsened since then. She has been adherent to her topical regimen which provided no relief. The patient has also been using T-gel for her scalp. ?? The patient and her mother both denies a prior history for psoriatic arthritis. The patient's sisterhas had arthritis and her aunt has had psoriatic arthritis. She has a history of Down's syndrome though is living independently. The patient also has a history of DVT??and previously underwent heart surgery. PAST MEDICAL HISTORY Psoriasis, Down's syndrome, heart surgery and DVT PHYSICAL EXAM General: Awake, alert, in no acute distress, and with appropriate affect. Skin: Examination of the thighs reveals annular plaques. Examination of the fingers, dorsal hands, elbows and upper arms reveals psoriaform plaques. Examination of the posterior lateral back reveals a few small patches. Examination of the buttocks reveals a few larger plaques. Examination of the posterior legs reveals a few small plaques. No pustules. IMPRESSION AND PLAN #1 Trunk and extremities: Plaque psoriasis; mild to moderate flare On clinical exam, there are multiple annular psoriaform plaques involving the thighs, fingers, dorsal hands, elbows, upper arms, posterior back, buttocks and posterior legs. Photographs taken again today with the patient's verbal consent. The chronic and recurrent nature of the condition was discussedwith the patient. I recommend restarting the narrowband UVB therapy 3 times per week per protocol with her home unit. We discussed that this treatment should not be implemented year-round but certainlyat times of flare in the winter months she can use it. I advised stopping the Dovonex and mometasone, as the medications have not been helpful for the psoriasis per both her parents who accompany her today.. The patient will instead apply a moisturizing cream (Vanicream) twice daily over the involved areas. She will continue using the T-gel for the psoriasis involving the scalp at least 3-4 times perweek. Follow up in 3 months for a recheck of the psoriasis. PATIENT EDUCATION Ready to learn. No apparent learning barriers were identified. Learning preferences include listening. Explained diagnosis and treatment plan; patient/guardian of patient expressed understanding of thecontent. By signing my name below, I, Mane Tonya, attest that this documentation has been prepared under thedirection and in the presence of Jus Foley M.D. Electronically Signed: simeon Morgan. 06/17/2019. 3:42 PM [employer] SALES CONSULTANT. I, Jus Foley M.D., personally performed the services described in this documentation. All medical record entries made by the scribe were at my direction and in my presence. I have reviewed the chart and discharge instructions (if applicable) and agree that the record reflects my personal performance and is accurate and complete. Jus Foley M.D. . 06/17/2019. 4:47 PM [employer] SALES CONSULTANT. SALES CONSULTANT documented in this encounter Plan of Treatment Not on filedocumented as of this encounter Visit Diagnoses Diagnosis Psoriasis - Primary documented in this encounter Care Teams Spring Coiler Hand Relationship Specialty Start Date End Date Jacki Luther P.A.-C. PCP - General Family Medicine 05/24/18 09/24/19 documented as of this encounter
--- OUTSIDE RECORDS SUMMARY | 2022-04-25 15:55 | XMS_ITS | Encounter Summary ---
:1975 Author Organization [facility] Address [address] [place] [address] Care Team Providers Name Role Phone Jacki Luther P.A.-C. Primary Care Provider Encounter Details Date Type Department Care Team Description 12/26/2018 Orders Only [facility] PCP [facility] Jacki Luther P.AMichaelCMichael [address] [place] [address] (Wo rk) Social History Tobacco Use Types [...] on filedocumented in this encounter Care Teams Marshmallow Maker Relationship Specialty Start Date End Date Jacki Luther P.AMichaelC. PCP - General Family Medicine 05/24/18 09/24/19 documented as of this encounter
--- OUTSIDE RECORDS SUMMARY | 2022-04-25 15:55 | XMS_ITS | Encounter Summary ---
:[address] [facility] Address [address] [place] [address] Care Team Providers Name Role Phone Jacki Luther P.A.-C. Primary Care Provider [phone] Encounter Details Date Type Department Care Team Description 02/12/2019 Clinical Communication Department of Jus Foley, Dermatology in [place], [place] [address] [phone] Social History Tobacco Use Types Packs/Day Years Used Date Smoking Tobacco: Never Smokeless Tobacco: Never Alcohol Use Standard Drinks/Week Comments Yes 0 (1 standard drink = 0.6 oz pure alcoho l) Sex Assigned at Date Recorded Not on file documented as of this encounter Miscellaneous Notes Telephone Encounter - Payal Musa R.N. - 02/18/2019 11:12 AM CDT Discussed with Dr. Foley and being he has not seen patient in the clinic since Jul 2018 he is requesting she be seen for a follow up appointment prior to giving the approval for light treatments. Called and spoke with patients Mother Fabiola Medina and she and Zuleima would be available to come for a follow up appointment with Dr. Foley on 03/04/19 at 3:45 pm with a 3:30 check in time. Will ask the Appointment Office staff to schedule this appointment accordingly. Telephone Encounter - Arlyn Hopper - 02/18/2019 9:22 AM CDT Patients mom, Fabiola, called about needing this UV light code again. Please call her at [phone].Thanks! Telephone Encounter - Lindsay Godinez - 02/12/2019 3:17 PM CDT Patients mom is calling to get a new code to put into her UV light for her psoriasis. Please reach out to her at [phone]. documented in this encounter Plan of Treatment Not on filedocumented as of this encounter Visit Diagnoses Not on filedocumented in this encounter Care Teams Prosthetics Assistant Relationship Specialty Start Date End Date Jacki Luther P.A.-C. PCP - General Family Medicine 05/24/18 09/24/19 documented as of this encounter
--- OUTSIDE RECORDS SUMMARY | 2022-04-25 15:55 | XMS_ITS | Encounter Summary ---
:1975 Author Organization [facility] Address [address] [place] [address] Care Team Providers Name Role Phone Jacki Luther P.A.-C. Primary Care Provider Reason for Referral Outpatient (Routine) - Closed Specialty Diagnoses / Procedures Referred By Referred To Contact Contact Hematology / Diagnoses Monitoring For Therapeutic Drug Therapy Ladle Car Operator (Current) Anticoagulant Treatment Anticoagulant Therapy Jacki Luther Anticoagulation [place] [address] [place] [address] Referral ID Status Reason Start Date Expiration Date Visits V isits Requested Authorized [id number] Closed Specialty 12/14/2018 12/14/2019 1 1 Services Required Encounter Details Date Type Department Care Team Description 12/13/2018 Orders Only Department of Renetta Leal Monitoring For Therapeutic Drug Therapy (Primary Dx); Anticoagulation in [facility] Term Anticoagulant Treatment; [place], [place] Anticoagulant Therapy [address] [place] [phone] Social History Tobacco Use Types Packs/Day Years Used Date Smoking Tobacco: Never Smokeless Tobacco: Never Alcohol Use Standard Drinks/Week Comments Yes 0 (1 standard drink = 0.6 oz pure alcoho l) Sex Assigned at Date Recorded Not on file documented as of this encounter Plan of Treatment Scheduled Referrals Name Type Priority Associated Diagnoses Order S chedule Anticoagulation Outpatient Routine Monitoring For Ordered: monitoring consult Referral Therapeutic Drug 12/14 (clinic) Therapy Ladle Car Operator Anticoagulant Treatment Anticoagulant Therapy documented as of this encounter Visit Diagnoses Diagnosis Monitoring For Therapeutic Drug Therapy - Primary Ladle Car Operator (Current) Anticoagulant Treatm ent Anticoagulant Therapy documented in this encounter Care Teams Vocational Ed Instructor Relationship Specialty Start Date End Date Jacki Luther P.A.-C. PCP - General Family Medicine 05/24/18 09/24/19 documented as of this encounter
--- OUTSIDE RECORDS SUMMARY | 2022-04-25 15:55 | XMS_ITS | Encounter Summary ---
:1975 Author Organization [facility] Address [address] [place] [address] Care Team Providers Name Role Phone Edward Luther P.A.-C. Primary Care Provider [phone] Encounter Details Date Type Department Care Team Description 08/20/2018 Orders Only Department of Family Edward Luther C [facility] Medicine, [place] Cristhian Bilateral (Primary Dx) Clinic, in [id number] [place] [address] [phone] (Work) [phone] Social History Tobacco Use Types Packs/Day Years Used Date Smoking Tobacco: Never Smokeless Tobacco: Never Sex Assigned at Date Recorded Not on file documented as of this encounter Plan of Treatment Not on filedocumented as of this encounter Results FAM proc ear wax removal (08/20/2018 3:15 PM DRESS CAP MAKER) Narrative [facility] - 08/20/2018 3:15 PM DRESS CAP MAKER Arlyn Pereira L.PMichaelNMichael ? 08/20/2018 ??3:00 PM FAM proc ear wax removal Date/Time: 08/20/2018 2:56 PM Performed by: ARLYN PEREIRA Authorized by: EDWARD LUTHER Post-procedure details: ??Complications: no apparent complicati ons ?? Comments: ?? Patient here today for a follow up e ar wax removal in the left ear. Patient's mother states that they have b een using ear drops since their last visit on 07/24/18. Obstruction seems to be cleared since last visit, with some small pieces of cerumen still in ear canal. Unable to clean anything out today. I asked the patient and her mother to follow up with us if her ears continue to bother her. T maximo are agreeable to this plan. Edward Luther P.A.-C. PROCEDURE/MINOR SURGICAL ORD ERABLES Performing Organization Address City/State/ZIP Code Phon e Number [facility] NA documented in this encounter Visit Diagnoses Diagnosis Cerumen Impacted Bilateral Cerumen Impacted Bilateral - Primary documented in this encounter Care Teams Cook Barbecue Relationship Specialty Start Date End Date Edward Luther P.A.-C. PCP - General Family Medicine 05/24/18 09/24/19 documented as of this encounter
--- OUTSIDE RECORDS SUMMARY | 2022-04-25 15:55 | XMS_ITS | Encounter Summary ---
:1975 Author Organization [facility] Address [address] [place] [address] Care Team Providers Name Role Phone Jacki Luther P.A.-C. Primary Care Provider [phone] Reason for Visit Reason Comments Med Refill Encounter Details Date Type Department Care Team Description 08/30/2018 Refill Department of Dermatology in Jus Lawton M.D. Med Refill [facility] chidi [address] [place] [address] [place], [place] [address] [phone] Social History Tobacco Use Types Packs/Day Years Used Date Smoking Tobacco: Never Smokeless Tobacco: Never Sex Assigned at Date Recorded Not on file documented as of this encounter Plan of Treatment Not on filedocumented as of this encounter Visit Diagnoses Not on filedocumented in this encounter Care Teams Chemist Physical Relationship Specialty Start Date End Date Jacki Luther P.A.-C. PCP - General Family Medicine 05/24/18 09/24/19 documented as of this encounter
--- OUTSIDE RECORDS SUMMARY | 2022-04-25 15:55 | XMS_ITS | Encounter Summary ---
:1975 Author Organization [facility] Address [address] [place] [address] Care Team Providers Name Role Phone Jacki Luther P.A.-C. Primary Care Provider Encounter Details Date Type Department Care Team Description 08/22/2018 Abstract [place], [place] Provider, Historical [address] [place] [address] Social History Tobacco Use Types Packs/Day Years Used Date Smoking Tobacco: Never Smokeless Tobacco: Never Sex Assigned at Date Recorded Not on file documented as of this encounter Plan of Treatment Not on filedocumented as of this encounter Visit Diagnoses Not on filedocumented in this encounter Care Teams Sole Leveling Machine Operator Relationship Specialty Start Date End Date Jacki Luther P.A.-C. PCP - General Family Medicine 05/24/18 09/24/19 documented as of this encounter
--- OUTSIDE RECORDS SUMMARY | 2022-04-25 15:55 | XMS_ITS | Encounter Summary ---
:1975 Author Organization [facility] Address [address] [place] [address] Care Team Providers Name Role Phone Jacki Luther P.A.-C. Primary Care Provider [phone] Encounter Details Date Type Department Care Team Description 08/29/2018 Anticoagulation Visit Department of Marina Garibay Hypercoagulation Syndrome (HCC); Anticoagulation in [place] Thrombophilia (HCC); Rosa Car M.D. Monitoring For Therapeutic Drug Therapy; [place] [address] Motion Picture Camera Operator Anticoagulant Treatment [address] [place] [address], [facility] [phone] Social History Tobacco Use Types Packs/Day Years Used Date Smoking Tobacco: Never Smokeless Tobacco: Never Sex Assigned at Date Recorded Not on file documented as of this encounter Progress Notes Nichole Bowers, RMichaelN. - 08/29/2018 7:30 AM CST Warfarin Maintenance Nursing Protocol Goal Range 2.0-3.0 (version approved 02/24/17) Visit Type: Telephone visit today. Primary reason for visit: Routine f/u OR f/u per previous visit recommendations Information provided by: patient Inclusion Criteria: All inclusion criteria met. Proceeded to exclusion criteria. Exclusion Criteria: No exclusion criteria, proceeded to screening criteria. Screening Criteria: All screening criteria negative. Proceeded to maintenance warfarin dosing and follow-up Additional info: Pt having dental procedure today and needed INR. Previous INR was therapeutic. Today???s INR is Subtherapeutic, Causes: Unknown. INR was suppose to be POC but ended up having a lab draw. Will manage with that result. Dosing and follow up recommendation: INR 1.8-1.9 No change in weekly dose. Bridging: no. Next INR: 12 days per Screening Criteria because prompts INR recheck sooner than indicated by maintenance warfarin dosing and follow-up table. Pt on LMWH: No Patient Visit summary provided to: Patient provided with handout of warfarin dosing and next INR appointment. caregiver repeats back dosing instructions and has no further questions at this time. Patient is agreeable to the plan of care yes DANCER documented in this encounter Miscellaneous Notes Addendum Note - Nichole Bowers R.N. - 08/29/2018 7:30 AM TAXI DANCER Addended by: NICHOLE BOWERS on: 08/29/2018 09:02 AM Modules accepted: Level of Service DANCER documented in this encounter Plan of Treatment Not on filedocumented as of this encounter Procedures Procedure Name Priority Date/Time Associated Diagnosis Comme nts PROTHROMBIN TIME Routine 08/29/2018 7:40 AM Other Primary Resu lts for this (PT), P TAXI DANCER Thrombophilia (HCC) procedur e are in the results section. documented in this encounter Results (ABNORMAL) PT (Prothrombin Time) with INR (08/29/2018 7:40 AM TAXI DANCER) [facility] Method Time Signature Prothrombin 19.9 (H) 8.8 - 11.9 08/29/2018 [facility] Time, P sec 7:54 AM [facility] INR 1.9 0.9 - 1.2 08/29/2018 [facility] 7:54 AM [facility] Comment: Standard intensity warfarin therapeutic range: 2.0 to 3.0 High intensity warfarin therapeutic rang e: 2.5 to 3.5 Specimen Anatomical Collection Method Collection Time Receive d Time (Source) Location / / Volume Laterality Blood 08/29/2018 7:40 AM 9 7:42 TAXI DANCER AM TAXI DANCER Sridhar Garibay M.D. LAB BLOOD ADD-ON Performing Organization Address City/State/ZIP Code Phon e Number [facility]- [id number] [address] [place] [facility] documented in this encounter Visit Diagnoses Diagnosis Primary Hypercoagulation Syndrome (HCC) Other Primary Thrombophilia (HCC) Monitoring For Therapeutic Drug Therapy Half-Way (Current) Anticoagulant Treatm ent documented in this encounter Care Teams Assignment Agent Relationship Specialty Start Date End Date Jacki Luther P.A.-C. PCP - General Family Medicine 05/24/18 09/24/19 documented as of this encounter
--- OUTSIDE RECORDS SUMMARY | 2022-04-25 15:55 | XMS_ITS | Encounter Summary ---
:1975 Author Organization [facility] Address [address] [place] [address] Care Team Providers Name Role Phone Jacki Luther P.A.-C. Primary Care Provider Encounter Details Date Type Department Care Team Description 11/27/2018 Anticoagulation Visit Department of Marina uLther Hypercoagulation Syndrome (HCC); Anticoagulation in [place] For Therapeutic Drug Therapy; Seth Car P.A.-C. Residential Anticoagulant Treatment [address] [place] [address] [place], [place] [phone] Social History Tobacco Use Types Packs/Day Years Used Date Smoking Tobacco: Never Smokeless Tobacco: Never Alcohol Use Standard Drinks/Week Comments Yes 0 (1 standard drink = 0.6 oz pure alcoho l) Sex Assigned at Date Recorded Not on file documented as of this encounter Progress Notes Nichole Bowers, RKareem. - 11/27/2018 2:30 PM CDT Warfarin Maintenance Nursing Protocol Goal Range 2.0-3.0 (version approved 02/24/17) Visit Type: Patient presents for Txgf-tv-Aqvn visit in Anticoagulation Service. Primary reason for [...] Diagnosis Comme nts INR, POCT, B Routine 11/27/2018 2:35 PM Results f or this CDT procedure are i n the results section . documented in this encounter Results INR, POCT (11/27/2018 2:35 PM CDT) P athologist Signature INR, POCT, B 2.2 11/27/2018 2:35 PM CDT Comment: ----ADDITIONAL INFORMATION---- Standard intensity warfarin therapeutic range: 2.0 to 3.0 ?? High intensity warfarin therapeutic rang e: 2.5 to 3.5 Specimen Anatomical Collection Method Collection Time Receive d Time (Source) Location / / Volume Laterality 11/27/2018 2:35 PM 9 2:36 CDT PM CDT Generic Rals LAB POCT ORDERABLES - DEVICE Performing Organization Address City/State/ZIP Code Phon e Number [facility]- [id number] [address] [place] [facility] documented in this encounter Visit Diagnoses Diagnosis Primary Hypercoagulation Syndrome (HCC) Monitoring For Therapeutic Drug Therapy Cellular Plastics Cutter (Current) Anticoagulant Treatm ent documented in this encounter Care Teams Beef Ribber Relationship Specialty Start Date End Date Jacki Luther P.A.-C. PCP - General Family Medicine 05/24/18 09/24/19 documented as of this encounter
--- OUTSIDE RECORDS SUMMARY | 2022-04-25 15:55 | XMS_ITS | Encounter Summary ---
:1975 Author Organization [facility] Address [address] [place] [address] Care Team Providers Name Role Phone Jacki Luther P.A.-C. Primary Care Provider Encounter Details Date Type Department Care Team Description 04/02/2019 Anticoagulation Visit Department of Marina Luther Hypercoagulation Syndrome (HCC); Anticoagulation in [place] For Therapeutic Drug Therapy; Seth Car P.A.-C. Jail Anticoagulant Treatment; [address] Anticoagulant Therapy [address] [place] [address] [place] [phone] [place], [place] [phone] [address] Social History Tobacco Use Types Packs/Day Years Used Date Smoking Tobacco: Never Smokeless Tobacco: Never Alcohol Use Standard Drinks/Week Comments Yes 0 (1 standard drink = 0.6 oz pure alcoho l) Sex Assigned at Date Recorded Not on file documented as of this encounter Progress Notes Nichole Bowers R.N. - 04/02/2019 2:30 PM CDT Warfarin Maintenance Nursing Protocol Goal Range 2.0-3.0 (version approved 02/24/17) Visit Type: Patient presents for Vvko-sk-Bhxq visit in Anticoagulation Service. Primary reason for [...] No change in weekly dose. Next INR: Patient declined recommended f/u. Risks of delay reviewed and patient accepts risks. Will return on 04/23 when here to see Ortho per patient. Pt on LMWH: No Patient Visit summary [...] Diagnosis Comme nts INR, POCT, B Routine 04/02/2019 2:31 PM Results f or this CDT procedure are i n the results section . documented in this encounter Results INR, POCT (04/02/2019 2:31 PM CDT) P athologist Signature INR, POCT, B 2.2 04/02/2019 [facility] 2:31 PM CDT Comment: ----ADDITIONAL INFORMATION---- Standard intensity warfarin therapeutic range: 2.0 to 3.0 ?? High intensity warfarin therapeutic rang e: 2.5 to 3.5 Specimen Anatomical Collection Method Collection Time Receive d Time (Source) Location / / Volume Laterality 04/02/2019 2:31 PM 9 2:33 CDT PM CDT Soft Results Interface LAB POCT ORDERABLES - DEVICE Performing Organization Address City/State/ZIP Code Phon e Number [facility]- [address] [place] [phone] [place] [address] [place] [address] [address] documented in this encounter Visit Diagnoses Diagnosis Primary Hypercoagulation Syndrome (HCC) Monitoring For Therapeutic Drug Therapy Inspector Multifocal Lens (Current) Anticoagulant Treatm ent Anticoagulant Therapy documented in this encounter Care Teams Hat Cutter Relationship Specialty Start Date End Date Jacki Luther P.A.-C. PCP - General Family Medicine 05/24/18 09/24/19 documented as of this encounter
--- OUTSIDE RECORDS SUMMARY | 2022-04-25 15:55 | XMS_ITS | Encounter Summary ---
:1975 Author Organization [facility] Address [address] [place] [address] Care Team Providers Name Role Phone Jacki Luther P.A.-C. Primary Care Provider Encounter Details Date Type Department Care Team Description 10/02/2018 Anticoagulation Visit Department of Marina Garibay Hypercoagulation Syndrome (HCC); Anticoagulation in [place] For Therapeutic Drug Therapy; Seth Car M.D. Intermediate Anticoagulant Treatment [facility] [address], [facility] [phone] Social History Tobacco Use Types Packs/Day Years Used Date Smoking Tobacco: Never Smokeless Tobacco: Never Sex Assigned at Date Recorded Not on file documented as of this encounter Progress Notes Nichole Bowers, RMichaelNMichael - 10/02/2018 2:30 PM CDT Warfarin Maintenance Nursing Protocol Goal Range 2.0-3.0 (version approved 02/24/17) Visit Type: Patient presents for Rxln-fy-Mjun visit in Anticoagulation Service. Primary reason for [...] Diagnosis Comme nts INR, POCT, B Routine 10/02/2018 2:24 PM Results f or this CDT procedure are i n the results section . documented in this encounter Results INR, POCT (10/02/2018 2:24 PM CDT) P athologist Signature INR, POCT, B 2.2 10/02/2018 [facility] 2:24 PM [facility]T [facility] Comment: ----ADDITIONAL INFORMATION---- Standard intensity warfarin therapeutic range: 2.0 to 3.0 ?? High intensity warfarin therapeutic rang e: 2.5 to 3.5 Specimen Anatomical Collection Method Collection Time Receive d Time (Source) Location / / Volume Laterality 10/02/2018 2:24 PM 9 2:26 CDT PM CDT Generic Rals LAB POCT ORDERABLES - DEVICE Performing Organization Address City/State/[facility] Code [facility] e Number [facility]- [address] [place] [address] [place] [facility] documented in this encounter Visit Diagnoses Diagnosis Primary Hypercoagulation Syndrome (HCC) Monitoring For Therapeutic Drug Therapy Intermediate (Current) Anticoagulant Treatm ent documented in this encounter Care Teams Developer Analyst Relationship Specialty Start Date End Date Jacki Luther P.A.-C. PCP - General Family Medicine 05/24/18 09/24/19 documented as of this encounter
--- OUTSIDE RECORDS SUMMARY | 2022-04-25 15:55 | XMS_ITS | Encounter Summary ---
:1975 Author Organization [facility] Address [address] [place] [address] Care Team Providers Name Role Phone Jacki Luther P.A.-C. Primary Care Provider [phone] Encounter Details Date Type Department Care Team Description 03/04/2019 Anticoagulation Visit Department of Hari Luther For Therapeutic Drug Therapy; Anticoagulation in Jacki Larson, [place] Hand Anticoagulant Treatment; Seth Car P.A.-C. Anticoagulant Therapy; [place] [phone] [place] [address] Primary Hypercoagulation Syn drome ([facility]) [address] [place], [place] [address] [place], [place] [phone] Social History Tobacco Use Types Packs/Day Years Used Date Smoking Tobacco: Never Smokeless Tobacco: Never Alcohol Use Standard Drinks/Week Comments Yes 0 (1 standard drink = 0.6 oz pure alcoho l) Sex Assigned at Date Recorded Not on file documented as of this encounter Progress Notes Nichole Bowers R.N. - 03/04/2019 3:30 PM CDT Warfarin Maintenance Nursing Protocol Goal Range 2.0-3.0 (version approved 02/24/17) Visit Type: Patient presents for Kejf-hu-Smdg visit in Anticoagulation Service. Primary reason for [...] Diagnosis Comme nts INR, POCT, B Routine 03/04/2019 3:31 PM Results f or this CDT procedure are i n the results section . documented in this encounter Results INR, POCT (03/04/2019 3:31 PM CDT) P athologist Signature INR, POCT, B 2.5 03/04/2019 3:31 PM CDT Comment: ----ADDITIONAL INFORMATION---- Standard intensity warfarin therapeutic range: 2.0 to 3.0 ?? High intensity warfarin therapeutic rang e: 2.5 to 3.5 Specimen Anatomical Collection Method Collection Time Receive d Time (Source) Location / / Volume Laterality 03/04/2019 3:31 PM 9 8:17 CDT AM CDT Generic [facility]als LAB POCT ORDERABLES - DEVICE Performing Organization Address City/State/ZIP Code Phon e Number [facility]- [address] [address] [place] [facility] documented in this encounter Visit Diagnoses Diagnosis Monitoring For Therapeutic Drug Therapy Detention (Current) Anticoagulant Treatm ent Anticoagulant Therapy Primary Hypercoagulation Syndrome (HCC) documented in this encounter Care Teams On Site Nurse Relationship Specialty Start Date End Date Jacki Luther P.A.-C. PCP - General Family Medicine 05/24/18 09/24/19 documented as of this encounter
--- OUTSIDE RECORDS SUMMARY | 2022-04-25 15:55 | XMS_ITS | Encounter Summary ---
:1975 Author Organization [facility] Address [address] [place] [address] Care Team Providers Name Role Phone Jacki Luther P.A.-C. Primary Care Provider Encounter Details Date Type Department Care Team Description 08/20/2018 Clinical Communication Department of [facility] Iris Luther [facility] [place] Rowan Larson [facility], [phone] [place] [address] [phone] (Work) [phone] Social History Tobacco Use Types Packs/Day Years Used Date Smoking Tobacco: Never Smokeless Tobacco: Never Sex Assigned at Date Recorded Not on file documented as of this encounter Plan of Treatment Not on filedocumented as of this encounter Visit Diagnoses Not on filedocumented in this encounter Care Teams Mold Setter Relationship Specialty Start Date End Date Jacki Luther P.A.-C. PCP - General Family Medicine 05/24/18 09/24/19 documented as of this encounter
--- OUTSIDE RECORDS SUMMARY | 2022-04-25 15:55 | XMS_ITS | Encounter Summary ---
:1975 Author Organization [facility] Address [address] [place] [address] Care Team Providers Name Role Phone Edward Luther P.A.-C. Primary Care Provider Reason for Visit Appointment Request (Routine) - Closed Specialty Diagnoses / Procedures Referred By Contact Refer red To Contact Family Medicine Referral ID Status Reason Start Date Expiration Date Visits Requ ested Visits Authorized [id number] Closed 08/20/2018 08/20/2019 1 Encounter Details Date Type Department Care Team Description 08/20/2018 Nurse Only Department of Family Adrienne Foley M.D. [address] [place] [phone] Medicine, [place] Arlyn Pereira LMichaelP.[facility], in [address] [phone] Social History Tobacco Use Types Packs/Day Years Used Date Smoking Tobacco: Never Smokeless Tobacco: Never Sex Assigned at Date Recorded Not on file documented as of this encounter Procedure Notes Arlyn Pereira LMichaelP.NMichael - 08/20/2018 3:15 PM CSTAssociated Order(s): FAM EAR WAX REMOVAL PROCEDURE Pre-Procedure Diagnose(s): Cerumen Impacted Bilateral Post-Procedure Diagnose(s): Cerumen Impacted Bilateral FAM proc ear wax removal Date/Time: 08/20/2018 2:56 PM Performed by: ARLYN PEREIRA Authorized by: EDWARD LTUHER Post-procedure details: Complications: no apparent complications Comments: Patient here today for a follow up ear wax removal in the left ear. Patient's mother states that they have been using ear drops since their last visit on 07/24/18. Obstruction seems to be cleared sincelast visit, with some small pieces of cerumen still in ear canal. Unable to clean anything out today. I asked the patient and her mother to follow up with us if her ears continue to bother her. They are agreeable to this plan. RER documented in this encounter Plan of Treatment Not on filedocumented as of this encounter Procedures Procedure Name Priority Date/Time Associated Diagnosis Comme nts FAM EAR WAX REMOVAL Routine 08/20/2018 3:15 PM Cerumen Impacte d Results for this PROCEDURE ARBORER Bilateral procedure are i n the results section. documented in this encounter Results FAM proc ear wax removal (08/20/2018 3:15 PM ARBORER) Narrative [facility] - 08/20/2018 3:15 PM ARBORER Arlyn Pereira L.P.N. ? 08/20/2018 ??3:00 PM FAM proc ear [...] her ears continue to bother her. T hey are agreeable to this plan. Edward Luther P.A.-C. PROCEDURE/MINOR SURGICAL ORD ERABLES Performing Organization Address City/State/ZIP Code Phon e Number [facility] NA documented in this encounter Visit Diagnoses Diagnosis Cerumen Impacted Bilateral documented in this encounter Care Teams Jewelry Model Maker Relationship Specialty Start Date End Date Edward Luther P.A.-C. PCP - General Family Medicine 05/24/18 09/24/19 documented as of this encounter
--- OUTSIDE RECORDS SUMMARY | 2022-04-25 15:55 | XMS_ITS | Encounter Summary ---
:1975 Author Organization [facility] Address [address] [place] [address] Care Team Providers Name Role Phone Edward Luther P.A.-C. Primary Care Provider Reason for Visit Reason Comments Cerumen Impaction Bilateral Outpatient (Routine) - Closed Specialty Diagnoses / Procedures Referred By Contact Refer red To Contact Family Medicine Diagnoses Cerumen Impacted Bilateral Edward Luther [facility] P.A.-CMichael [address] [place], [place] [address] Referral ID Status Reason Start Date Expiration Date Visits Requ ested Visits Authorized [id number] Closed 07/23/2018 07/23/2019 1 1 Encounter Details Date Type Department Care Team Description 07/24/2018 Nurse Only Department of [facility] Cora Luther P.AMichael-CMichael [address] [place] [address] Cerumen Impaction Medicine, [place] Arlyn Pereira LMichaelPMichaelNMichael (Bilateral ) Clinic, in [address] [phone] Social History Tobacco Use Types Packs/Day Years Used Date Smoking Tobacco: Never Smokeless Tobacco: Never Sex Assigned at Date Recorded Not on file documented as of this encounter Procedure Notes Arlyn Pereira LMichaelP.N. - 07/24/2018 3:15 PM CSTAssociated Order(s): EAR CERUMEN REMOVAL Post-Procedure Diagnose(s): Cerumen Impacted Bilateral Ear cerumen removal Date/Time: 07/24/2018 3:33 PM Performed by: ARLYN PEREIRA Authorized by: EDWARD LUTHER Pre-procedural details: Indication: cerumen impaction Pre-cerumen removal medication: Patient's mother states they have been using ear drops for 2 weeks now. Procedure details: Location: Left ear and right ear Procedure type: irrigation Microscope used: no Post-procedure details: Inspection: Partial impaction removal (Right side successful, left side unsuccessful) Hearing quality: Improved Complications: no immediate complications GER DIALYSIS documented in this encounter Plan of Treatment Not on filedocumented as of this encounter Procedures Procedure Name Priority Date/Time Associated Diagnosis Comme nts UT RMVL IMPACT Routine 07/24/2018 3:15 PM Cerumen Impacted Res ults for this CERUMEN IRRIG MANAGER DIALYSIS Bilateral procedure are in UNILAT the results section. documented in this encounter Results UT RMVL IMPACT CERUMEN IRRIG UNILAT (07/24/2018 3:15 PM MANAGER DIALYSIS) Narrative [facility] - 07/24/2018 3:15 PM MANAGER DIALYSIS Arlyn Pereira L.P.N. ? 07/24/2018 ??3:36 PM Ear cerumen removal Date/Time: 07/24/2018 3:33 PM Performed by: ARLYN PEREIRA Authorized by: EDWARD LUTHER Pre-procedural details: ??Indication: cerumen impaction ?Pre-cerumen removal medication: Patie nt's mother states they have been using ear drops for 2 weeks now. Procedure details: ??Location: ??Left ear and right ear ??Procedure type: irrigation ?Microscope used: no ?? Post-procedure details: ??Inspection: ??Partial impaction remov al (Right side successful, left side unsuccessful) ??Hearing quality: ??Improved ??Complications: no immediate complicat ions ?? Edward Luther P.A.-C. PROCEDURE/MINOR SURGICAL ORD ERABLES Performing Organization Address City/State/ZIP Code Phon e Number [facility] NA documented in this encounter Visit Diagnoses Diagnosis Cerumen Impacted Bilateral documented in this encounter Care Teams Animal Killer Relationship Specialty Start Date End Date Edward Luther P.A.-C. PCP - General Family Medicine 05/24/18 09/24/19 documented as of this encounter
--- OUTSIDE RECORDS SUMMARY | 2022-04-25 15:55 | XMS_ITS | Encounter Summary ---
:1975 Author Organization [facility] Address [address] [place] [address] Care Team Providers Name Role Phone Jacki Luther P.A.-C. Primary Care Provider Encounter Details Date Type Department Care Team Description 08/14/2018 Anticoagulation Visit Department of Marina Garibay Hypercoagulation Syndrome (HCC); Anticoagulation in [place] For Therapeutic Drug Therapy; Seth Car M.D. Appliance Technician Anticoagulant Treatment [facility] [address], [facility] [phone] Social History Tobacco Use Types Packs/Day Years Used Date Smoking Tobacco: Never Smokeless Tobacco: Never Sex Assigned at Date Recorded Not on file documented as of this encounter Progress Notes Lili Manzo R.N. - 08/14/2018 2:30 PM CST Warfarin Maintenance Nursing Protocol Goal Range 2.0-3.0 (version approved 02/24/17) Visit Type: Patient presents for Evnd-sr-Vfit visit in Anticoagulation Service. Primary reason for [...] agreeable to the plan of care yes NESS DEVELOPMENT INTERN documented in this encounter Plan of Treatment Not on filedocumented as of this encounter Procedures Procedure Name Priority Date/Time Associated Diagnosis Comme nts INR, POCT, B Routine 08/14/2018 2:44 PM Results f or this BUSINESS DEVELOPMENT INTERN procedure are i n the results section . documented in this encounter Results INR, POCT (08/14/2018 2:44 PM BUSINESS DEVELOPMENT INTERN) athologist Signature INR, POCT, B 2.1 08/14/2018 [facility] 2:44 PM BUSINESS DEVELOPMENT INTERN [facility] Comment: ----ADDITIONAL INFORMATION---- Standard intensity warfarin therapeutic range: 2.0 to 3.0 ?? High intensity warfarin therapeutic rang e: 2.5 to 3.5 Specimen Anatomical Collection Method Collection Time Receive d Time (Source) Location / / Volume Laterality 08/14/2018 2:44 PM 9 2:45 BUSINESS DEVELOPMENT INTERN PM BUSINESS DEVELOPMENT INTERN Generic [facility] POCT ORDERABLES - DEVICE Performing Organization Address City/State/ZIP Code Phon e Number [facility]- [id number] [place] [address] [facility] documented in this encounter Visit Diagnoses Diagnosis Primary Hypercoagulation Syndrome (HCC) Monitoring For Therapeutic Drug Therapy [facility] (Current) Anticoagulant Treatm ent documented in this encounter Care Teams Testing Manager Relationship Specialty Start Date End Date Jacki Luther P.A.-C. PCP - General Family Medicine 05/24/18 09/24/19 documented as of this encounter
--- OUTSIDE RECORDS SUMMARY | 2022-04-25 15:55 | XMS_ITS | Encounter Summary ---
:1975 Author Organization [facility] Address [address] [place] [address] Care Team Providers Name Role Phone Jacki Luther P.A.-C. Primary Care Provider Reason for Visit Reason Comments Eye Exam Appointment Request (Routine) - Closed Specialty Diagnoses / Procedures Referred By Contact Refer red To Contact Ophthalmology Referral ID Status Reason Start Date Expiration Date Visits Requ ested Visits Authorized [id number] Closed 09/26/2018 09/26/2019 1 Encounter Details Date Type Department Care Team Description 10/15/2018 Comprehensive Visit Department of Yuki Mcmullen ia Right (Primary Dx); Ophthalmology in [place] O.D. Myopia Left; [place], [place] Astigmatism Regular Bilatera l; [address] [place] [phone] Social History Tobacco Use Types Packs/Day Years Used Date Smoking Tobacco: Never Smokeless Tobacco: Never Alcohol Use Standard Drinks/Week Comments Yes 0 (1 standard drink = 0.6 oz pure alcoho l) Sex Assigned at Date Recorded Not on file documented as of this encounter Progress Notes Kt Mcmullen O.D. 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 She has early presbyopia but uses her left eye mostly for near work. There is little improvement in vision with correction. Plan: After talking with mother, no correction will be given at this time. She may try using +1.00-+1.50 dclq-kgw-dvetzqz readers to see if it helps with near work. Re-evaluate health bautista a full exam in 2 years. documented in this encounter Plan of Treatment Not on filedocumented as of this encounter Visit Diagnoses Diagnosis Hyperopia Right - Primary Myopia Left Astigmatism Regular Bilateral Amblyopia Refractive Left documented in this encounter Care Teams Digital Director Relationship Specialty Start Date End Date Jacki Luther P.A.-C. PCP - General Family Medicine 05/24/18 09/24/19 documented as of this encounter
--- OUTSIDE RECORDS SUMMARY | 2022-04-25 15:55 | XMS_ITS | Encounter Summary ---
:1975 Author Organization [facility] Address [address] [place] [address] Care Team Providers Name Role Phone Jacki Luther P.A.-C. Primary Care Provider Reason for Visit Reason Comments Med Refill Encounter Details Date Type Department Care Team Description 01/28/2019 Refill Department of Dermatology in Jus Lawton M.D. Med Refill [facility] chidi [address] [place] [phone] [place], [place] [address] [phone] Social History Tobacco Use Types Packs/Day Years [...] on filedocumented in this encounter Care Teams Toll Relief Operator Relationship Specialty Start Date End Date Jacki Luther P.A.-C. PCP - General Family Medicine 05/24/18 09/24/19 documented as of this encounter
--- OUTSIDE RECORDS SUMMARY | 2022-04-25 15:55 | XMS_ITS | Encounter Summary ---
:1975 Author Organization [facility] Address [address] [place] [address] Care Team Providers Name Role Phone Jacki Luther P.A.-C. Primary Care Provider Reason for Visit Reason Comments Med Refill Encounter Details Date Type Department Care Team Description 01/30/2019 Refill Department of Family Medicine, Iris Luther, Med Refill [facility], in [place], [place] [address] [place] [address] [place], [place] [address] [phone] Social History Tobacco Use Types Packs/Day Years Used Date Smoking Tobacco: Never Smokeless Tobacco: Never Alcohol Use Standard Drinks/Week Comments Yes 0 (1 standard drink = 0.6 oz pure alcoho l) Sex Assigned at Date Recorded Not on file documented as of this encounter Miscellaneous Notes Telephone Encounter - Sarah Pollard - 01/30/2019 7:34 AM CDT Anticoagulation Medication documented in this encounter Plan of Treatment Not on filedocumented as of this encounter Visit Diagnoses Diagnosis Primary Hypercoagulation Syndrome (HCC) documented in this encounter Care Teams Court Manager Relationship Specialty Start Date End Date Jacki Luther P.A.-C. PCP - General Family Medicine 05/24/18 09/24/19 documented as of this encounter
--- OUTSIDE RECORDS SUMMARY | 2022-04-25 15:55 | XMS_ITS | Encounter Summary ---
:1975 Author Organization [facility] Address [address] [place] [address] Care Team Providers Name Role Phone Jacki Luther P.A.-C. Primary Care Provider Encounter Details Date Type Department Care Team Description 09/11/2018 Anticoagulation Visit Department of Hari Garibay For Therapeutic Drug Therapy; Anticoagulation in [facility], Aerophysics Engineer Anticoagulant Treatment; Rosa Car M.D. Primary Hypercoagulation Syndrome (HCC) [address] [facility] [phone] (Work) Social History Tobacco Use Types Packs/Day Years Used Date Smoking Tobacco: Never Smokeless Tobacco: Never Sex Assigned at Date Recorded Not on file documented as of this encounter Plan of Treatment Not on filedocumented as of this encounter Visit Diagnoses Diagnosis Monitoring For Therapeutic Drug Therapy Aerophysics Engineer (Current) Anticoagulant Treatm ent Primary Hypercoagulation Syndrome (HCC) documented in this encounter Care Teams Checkman Relationship Specialty Start Date End Date Jacki Luther P.A.-C. PCP - General Family Medicine 05/24/18 09/24/19 documented as of this encounter
--- OUTSIDE RECORDS SUMMARY | 2022-04-25 15:55 | XMS_ITS | Encounter Summary ---
:1975 Author Organization [facility] Address [address] [place] [address] Care Team Providers Name Role Phone Jacki Luther P.A.-C. Primary Care Provider [phone] Reason for Visit Reason Comments Med Refill Encounter Details Date Type Department Care Team Description 01/30/2019 Refill Department of Anticoagulation in Lili Manzo R.N. Med Refill [address] [address] [place], [place] [address] [phone] Social History Tobacco Use Types Packs/Day Years [...] (HCC) documented in this encounter Care Teams Fieldwork Coordinator Relationship Specialty Start Date End Date Jacki Luther P.A.-C. PCP - General Family Medicine 05/24/18 09/24/19 documented as of this encounter
--- OUTSIDE RECORDS SUMMARY | 2022-04-25 15:55 | XMS_ITS | Encounter Summary ---
:1975 Author Organization [facility] Address [address] [place] [address] Care Team Providers Name Role Phone Jacki Luther P.A.-C. Primary Care Provider Encounter Details Date Type Department Care Team Description 07/24/2018 Clinical Communication [facility] Deedee Benavides [facility], in [address] [phone] Social History Tobacco Use Types Packs/Day Years Used Date Smoking Tobacco: Never Smokeless Tobacco: Never Sex Assigned at Date Recorded Not on file documented as of this encounter Miscellaneous Notes Telephone Encounter - Arlyn Phillips L.P.N. - 07/31/2018 3:22 PM OVER SHORT AND DAMAGE CLERK Left detailed message on private voicemail for patient's mother, Fabiola. Let her know that the prescription was correctly filled and that Jacki agrees with the plan to follow up for another ear cleaning. I asked her to give us a call back if she has any questions. SHORT AND DAMAGE CLERK Telephone Encounter - Jacki Luther P.A.-C. - 07/24/2018 3:47 PM OVER SHORT AND DAMAGE CLERK Refill sent for patient. Agree with return for irrigation. SHORT AND DAMAGE CLERK Telephone Encounter - Arlyn Phillips L.P.N. - 07/24/2018 3:39 PM OVER SHORT AND DAMAGE CLERK Patient was seen today by nursing for a bilateral cerumen impaction removal. Right side was successful, left side remains impacted. Patients mother states that they can continue to use ear drops and come back for another nurse visit in two weeks for another attempt at removing it. Patient's mother is also concerned about the prescription they received for antibiotics to be used prior to dental appointments. She states that Zuleima goes to the dentist so often, that it would be easier to get a prescription of 12 tablets, with 10 refills. Pended prescription to PCP. They are hoping to have this sent by 2/5 as they will be going on vacation. SHORT AND DAMAGE CLERK documented in this encounter Plan of Treatment Not on filedocumented as of this encounter Visit Diagnoses Not on filedocumented in this encounter Care Teams Cocktail Server Relationship Specialty Start Date End Date Jacki Luther P.A.-C. PCP - General Family Medicine 05/24/18 09/24/19 documented as of this encounter
--- OUTSIDE RECORDS SUMMARY | 2022-04-25 15:55 | XMS_ITS | Encounter Summary ---
:[address] [facility] Address [address] [place] [address] Care Team Providers Name Role Phone Jacki Luther P.A.-C. Primary Care Provider [phone] Reason for Referral Outpatient (Routine) - Closed Specialty Diagnoses / Procedures Referred By Contact Refer red To Contact Family Medicine Diagnoses Cerumen Impacted Bilateral Jacki Luthre [facility] [place] [id number] [place] [address] 24 Referral ID Status Reason Start Date Expiration Date Visits Requ ested Visits Authorized [id number] Closed 07/23/2018 07/23/2019 1 1 Scheduling Instructions To be scheduled 07/24 at 3:15 on the MEDICAL RECORD LIBRARIANS TEACHER schedule. PACKER Encounter Details Date Type Department Care Team Description 07/23/2018 Orders Only Department of [facility] Jacki Luther C erumen Impacted Medicine, Shiner Cristhian Bilateral (Primary Dx) Clinic, in [address] [address] [place], [place] [phone] (Work) [phone] Social History Tobacco Use Types Packs/Day Years Used Date Smoking Tobacco: Never Smokeless Tobacco: Never Sex Assigned at Date Recorded Not on file documented as of this encounter Plan of Treatment Scheduled Referrals Name Type Priority Associated Diagnoses Order S [facility] Medicine Outpatient Referral Routine Cerumen Impacted E xpected: nurse visit Bilateral 07/24/2018, (clinic) Expires: 07/23/2021 documented as of this encounter Visit Diagnoses Diagnosis Cerumen Impacted Bilateral - Primary documented in this encounter Care Teams Chief Engineer Production Relationship Specialty Start Date End Date Jacki Luther P.A.-C. PCP - General Family Medicine 05/24/18 09/24/19 documented as of this encounter
--- OUTSIDE RECORDS SUMMARY | 2022-04-25 15:55 | XMS_ITS | Encounter Summary ---
:1975 Author Organization [facility] Address [address] [place] [address] Care Team Providers Name Role Phone Jacki Luther P.A.-C. Primary Care Provider Reason for Visit Reason Comments Follow-up Outpatient (Routine) - Closed Specialty Diagnoses / Procedures Referred By Contact Refer red To Contact Dermatology Jus Foley M.D . [facility] [address] [place] [address] Referral ID Status Reason Start Date Expiration Date Visits Requ ested Visits Authorized [id number] Closed 06/05/2018 06/05/2019 1 1 Encounter Details Date Type Department Care Team Description 08/20/2018 Office Visit Department of Jus Foley, Psoriasis (Primary Dx) Dermatology in [place], [place] [address] [place] [phone] Social History Tobacco Use Types Packs/Day Years Used Date Smoking Tobacco: Never Smokeless Tobacco: Never Sex Assigned at Date Recorded Not on file documented as of this encounter Progress Notes Jus Foley M.D. - 08/20/2018 1:30 PM CST CHIEF COMPLAINT Recheck psoriasis HISTORY OF THE PRESENT ILLNESS Hue Medina is a pleasant 43 y.o. [employer] worker who has Down syndrome but lives independently. She is??accompanied by mother and she??is being seen by me for recheck of psoriasis. During my initial visit with her on 04/23/18, she reported that she initially experienced psoriasis eruptions at the age of 12. She was treating the psoriasis with csvi-cyh-dyoepjc Oxipor 5% coal-tar lotion and symptoms were controlled with use. Recently, the Oxipor lotion was discontinued per the [...] I recommended narrow band UVB phototherapy at [facility]. The patientand her mother were interested [...] that topical treatments would not be sufficient toresolve the thick plaques so I recommended narrow band UVB phototherapy at [facility]. The patient and her mother declined [...] of Dovonex and mometasone as described above. Today, the patient states that she as been following the regimen as directed and her psoriasis has significantly improved. She also started applying over the counter MG 217 topical tar gel and cream toher shoulders and hands, which has resulted in marked improvement. Additionally, the patient recently returned from a trip to [place] where she received a significant amount of sun exposure. She also recently started showering at her mother's house, which has soft water. Her mother wonders if this entire flare is related to the hard water at the patient's apartment, as she has previously only showeredwith soft water while living at home and her psoriasis has improved since she started showering at her mother's house. They were also able to get the home unit for narrowband UV therapy approved and itwill be arriving this week. Mom is wondering whether not to have the narrowband UVB home unit delivered as scheduled this week. ?? The patient has arthritis to the joints but has been given no indication the arthritis is related toher psoriasis. The patient's sister has arthritis and the patient's aunt has psoriatic arthritis. The patient has a history of Down's syndrome and??lives independently. She has a history of DVT??and has previously had heart surgery. PAST MEDICAL HISTORY Psoriasis, Down's syndrome, heart surgery and DVT PHYSICAL EXAM General: Awake, alert, in no acute distress, and with appropriate affect. Skin: Examination of the buttock reveals some residual, flat, patchy erythema, but no elevated plaques. Examination of the elbows and arms reveals significant flattening of psoriasiform plaques with decreased erythema and scaling. Examination of the abdomen reveals some annular plaques. IMPRESSION AND PLAN #1 Trunk and extremities: Plaque Psoriasis markedly improved, plaques have flattened significantly The patient's psoriasis has markedly improved with topicals, over the counter MG 217 topical tar, sun exposure during recent trip to [place], and showering in soft water only. I recommended stopping theover the counter MG 217 topical tar and the Dovonex for the time being. For maintenance, she will apply mometasone ointment sparingly to arms and legs 2-3 times per week at most and potential side effects of thinning of the skin and dilation of blood vessels emphasized. The patient should not start the narrowband UV therapy at this time, as the plaques have thinned and I worry about burning her skin.She will only use use the narrowband UV therapy home unit if the plaques thicken and do not respond to topicals. Follow up in 4 months or earlier if needed. I would prefer to see them back if they are going to start the home unit phototherapy at that time so we can follow closely. She does not need home unit phototherapy at this time as noted given the improvement of her plaque psoriasis. PATIENT EDUCATION Ready to learn. No apparent learning barriers were identified. Learning preferences include listening. Explained diagnosis and treatment plan; patient/guardian of patient expressed understanding of thecontent. By signing my name below, I, Amparo Dumas, attest that this documentation has been prepared under thedirection and in the presence of Jus Foley M.D.. Electronically Signed: simeon Cevallos. 08/20/2018. 1:52 PM . RETE LABORER documented in this encounter Plan of Treatment Not on filedocumented as of this encounter Visit Diagnoses Diagnosis Psoriasis - Primary documented in this encounter Care Teams Solar/Renewable Energy Sales Relationship Specialty Start Date End Date Jacki Luther P.A.-C. PCP - General Family Medicine 05/24/18 09/24/19 documented as of this encounter
--- OUTSIDE RECORDS SUMMARY | 2022-04-25 15:55 | XMS_ITS | Encounter Summary ---
:1975 Author Organization [facility] Address [address] [place] [address] Care Team Providers Name Role Phone Jacki Luther P.A.-C. Primary Care Provider Encounter Details Date Type Department Care Team Description 08/14/2018 Clinical Communication Department of [facility] Iris Luther [facility] Rowan Larson [facility], [phone] [place] [address] [phone] (Work) [phone] Social History Tobacco Use Types Packs/Day Years Used Date Smoking Tobacco: Never Smokeless Tobacco: Never Sex Assigned at Date Recorded Not on file documented as of this encounter Plan of Treatment Not on filedocumented as of this encounter Visit Diagnoses Not on filedocumented in this encounter Care Teams Tmd Teacher Assistant Relationship Specialty Start Date End Date Jakci Luther P.A.-C. PCP - General Family Medicine 05/24/18 09/24/19 documented as of this encounter
--- OUTSIDE RECORDS SUMMARY | 2022-04-25 15:55 | XMS_ITS | Encounter Summary ---
:1975 Author Organization [facility] Address [address] [place] [address] Care Team Providers Name Role Phone Jacki Luther P.A.-C. Primary Care Provider [phone] Encounter Details Date Type Department Care Team Description 01/29/2019 Anticoagulation Visit Department of Marina Luther Hypercoagulation Syndrome (HCC); Anticoagulation in [place] For Therapeutic Drug Therapy; Seth Car P.A.-C. Quilt Stuffer Anticoagulant Treatment; [address] Anticoagulant Therapy [address] [place] [address] [place] [address] [place], [place] [phone] [address] Social History Tobacco Use Types Packs/Day Years Used Date Smoking Tobacco: Never Smokeless Tobacco: Never Alcohol Use Standard Drinks/Week Comments Yes 0 (1 standard drink = 0.6 oz pure alcoho l) Sex Assigned at Date Recorded Not on file documented as of this encounter Progress Notes Lili Manzo R.N. - 01/29/2019 2:30 PM CDT Warfarin Maintenance Nursing Protocol Goal Range 2.0-3.0 (version approved 02/24/17) Visit Type: Patient presents for Zbmw-tu-Dmus visit in Anticoagulation Service. Primary reason for [...] Diagnosis Comme nts INR, POCT, B Routine 01/29/2019 2:26 PM Results f or this CDT procedure are i n the results section . documented in this encounter Results INR, POCT (01/29/2019 2:26 PM CDT) P athologist Signature INR, POCT, B 2.1 01/29/2019 2:26 PM CDT Comment: ----ADDITIONAL INFORMATION---- Standard intensity warfarin therapeutic range: 2.0 to 3.0 ?? High intensity warfarin therapeutic rang e: 2.5 to 3.5 Specimen Anatomical Collection Method Collection Time Receive d Time (Source) Location / / Volume Laterality 01/29/2019 2:26 PM 9 2:27 CDT PM CDT Generic [facility] POCT ORDERABLES - DEVICE Performing Organization Address City/State/ZIP Code Phon e Number [facility]- [address] [address] [place] documented in this encounter Visit Diagnoses Diagnosis Primary Hypercoagulation Syndrome (HCC) Monitoring For Therapeutic Drug Therapy Correction (Current) Anticoagulant Treatm ent Anticoagulant Therapy documented in this encounter Care Teams Track Grinder Relationship Specialty Start Date End Date Jacki Luther P.A.-C. PCP - General Family Medicine 05/24/18 09/24/19 documented as of this encounter
--- OUTSIDE RECORDS SUMMARY | 2022-04-25 15:55 | XMS_ITS | Encounter Summary ---
:1975 Author Organization [facility] Address [address] [place] [address] Care Team Providers Name Role Phone Jacki Luther P.A.-C. Primary Care Provider Encounter Details Date Type Department Care Team Description 09/11/2018 Anticoagulation Visit Department of Marina Garibay Hypercoagulation Syndrome (HCC); Anticoagulation in [place] For Therapeutic Drug Therapy; Seth Car M.D. [facility] Anticoagulant Treatment [facility] [phone], [place] [phone] Social History Tobacco Use Types Packs/Day Years Used Date Smoking Tobacco: Never Smokeless Tobacco: Never Sex Assigned at Date Recorded Not on file documented as of this encounter Progress Notes Lili Manzo R.N. - 09/11/2018 2:30 PM CDT Warfarin Maintenance Nursing Protocol Goal Range 2.0-3.0 (version approved 02/24/17) Visit Type: Patient presents for Rgcm-[id number] visit in Anticoagulation Service. Primary reason for visit: Routine f/u OR f/u per previous visit recommendations Information provided by: patient Inclusion Criteria: All inclusion criteria met. Proceeded to exclusion criteria. Exclusion Criteria: No exclusion criteria, proceeded to screening criteria. Screening Criteria: All screening criteria negative. Proceeded to maintenance warfarin dosing and follow-up Additional info: None Previous INR was subtherapeutic. Today???s INR is Therapeutic. Dosing and follow up recommendation: INR 2.0-3.0 No change in weekly dose. Next INR: Twice amount oftime since last INR (max 4-6 weeks): 21 days Pt on LMWH: No Patient Visit summary [...] Diagnosis Comme nts INR, POCT, B Routine 09/11/2018 2:32 PM Results f or this CDT procedure are i n the results section . documented in this encounter Results INR, POCT (09/11/2018 2:32 PM CDT) P athologist Signature INR, POCT, B 2.6 09/11/2018 [facility] 2:32 PM CDT [facility] Comment: ----ADDITIONAL INFORMATION---- Standard intensity warfarin therapeutic range: 2.0 to 3.0 ?? High intensity warfarin therapeutic rang e: 2.5 to 3.5 Specimen Anatomical Collection Method Collection Time Receive d Time (Source) Location / / Volume Laterality 09/11/2018 2:32 PM 9 2:34 CDT PM CDT [facility] POCT ORDERABLES - DEVICE Performing Organization Address City/State/ZIP Code Phon e Number [facility]- [id number] [place] [address] [facility] documented in this encounter Visit Diagnoses Diagnosis Primary Hypercoagulation Syndrome (HCC) Monitoring For Therapeutic Drug Therapy [facility] (Current) Anticoagulant Treatm ent documented in this encounter Care Teams Elevator Constructor Hydraulic Relationship Specialty Start Date End Date Jacki Luther P.A.-C. PCP - General Family Medicine 05/24/18 09/24/19 documented as of this encounter
--- OUTSIDE RECORDS SUMMARY | 2022-04-25 15:55 | XMS_ITS | Encounter Summary ---
:1975 Author Organization [facility] Address [address] [place] [address] Care Team Providers Name Role Phone Jacki Luther P.A.-C. Primary Care Provider Reason for Visit Reason Comments Cerumen Impaction Left ear Appointment Request (Routine) - Closed Specialty Diagnoses / Procedures Referred By Contact Refer red To Contact Family Medicine Referral ID Status Reason Start Date Expiration Date Visits Requ ested Visits Authorized [id number] Closed 08/20/2018 08/20/2019 1 Encounter Details Date Type Department Care Team Description 08/20/2018 Office Visit Department of Family Shawn Osborn Cance led (Clinic: MedicineSeth M.D., Ph. D. Scheduling Error) Clinic, in [address] [phone] Social History Tobacco Use Types Packs/Day Years Used Date Smoking Tobacco: Never Smokeless Tobacco: Never Sex Assigned at Date Recorded Not on file documented as of this encounter Last Filed Vital Signs Vital Sign Reading Time Taken Comments Blood Pressure 94/61 08/20/2018 2:24 PM SAND BUFFER Pulse 65 08/20/2018 2:24 PM SAND BUFFER Temperature 36.5 ??C (97.7 ??F) 08/20/2018 2:24 PM SAND BUFFER Respiratory Rate 18 08/20/2018 2:24 PM SAND BUFFER Oxygen Saturation 93% 08/20/2018 2:24 PM SAND BUFFER Inhaled Oxygen Concentration - - Weight - - Height - - Body Mass Index - - documented in this encounter Plan of Treatment Not on filedocumented as of this encounter Visit Diagnoses Not on filedocumented in this encounter Care Teams System Planning Engineer Relationship Specialty Start Date End Date Jacki Luther P.A.-C. PCP - General Family Medicine 05/24/18 09/24/19 documented as of this encounter
--- OUTSIDE RECORDS SUMMARY | 2022-04-25 15:56 | XMS_ITS | Encounter Summary ---
:1975 Author Organization [facility] Address [address] [place] [address] Care Team Providers Name Role Phone Jacki Luther P.A.-C. Primary Care Provider Encounter Details Date Type Department Care Team Description 06/22/2018 Clinical Communication [facility] [employer] Iris Luther [facility]an [facility], [id number] [place] [address] [phone] (Work) [phone] Social History Tobacco Use Types Packs/Day Years Used Date Smoking Tobacco: Never Smokeless Tobacco: Never Sex Assigned at Date Recorded Not on file documented as of this encounter Miscellaneous Notes Telephone Encounter - Aimee Loyola R.N. - 07/02/2018 8:39 AM CST Patient mother informed. Y CANDY MAKER Telephone Encounter - Jus Folye M.D. - 07/02/2018 8:12 AM CST Renny Yu, Please schedule her for MondayAugust 20 at 1:30 p.m. for a 30 min appointment. Also let them know the date. Thank you Y CANDY MAKER Telephone Encounter - Aimee Loyola V. RViktor - 06/27/2018 10:50 AM CST Called Patient Mother Fabiola back and was informed that they have an opportunity to go to [facility]. I informed them that we are booking out until September but if there is a spot we can fit them in sooner they would appreciate it. Y CANDY MAKER Telephone Encounter - Erica Vides - 06/22/2018 9:48 AM CST Pt was scheduled to see Dr. Foley on 08/07 but is needing to cancel due to going on vacation. His next available isn't until the end of September and her mom is saying that she is needing to be seen sooner. They are wondering if they can be fit in somewhere. Please call her mom Fabiola back at [phone] Y CANDY MAKER documented in this encounter Plan of Treatment Not on filedocumented as of this encounter Visit Diagnoses Not on filedocumented in this encounter Care Teams Pl Sql Developer Relationship Specialty Start Date End Date Jacki Luther P.A.-C. PCP - General Family Medicine 05/24/18 09/24/19 documented as of this encounter
--- OUTSIDE RECORDS SUMMARY | 2022-04-25 15:56 | XMS_ITS | Encounter Summary ---
:1975 Author Organization [facility] Address [address] [place] [address] Care Team Providers Name Role Phone Jacki Luther P.A.-C. Primary Care Provider [phone] Reason for Visit Reason Comments Med Refill Encounter Details Date Type Department Care Team Description 07/14/2018 Refill Department of Dermatology in Jus Lawton M.D. Med Refill [facility] flotation tender helper [address] [place] [phone] [place], [place] [address] [phone] Social History Tobacco Use Types Packs/Day Years Used Date Smoking Tobacco: Never Smokeless Tobacco: Never Sex Assigned at Date Recorded Not on file documented as of this encounter Plan of Treatment Not on filedocumented as of this encounter Visit Diagnoses Not on filedocumented in this encounter Care Teams Paste Mixing Supervisor Relationship Specialty Start Date End Date Jacki Luther P.A.-C. PCP - General Family Medicine 05/24/18 09/24/19 documented as of this encounter
--- OUTSIDE RECORDS SUMMARY | 2022-04-25 15:56 | XMS_ITS | Encounter Summary ---
:1975 Author Organization [facility] Address [address] [place] [address] Care Team Providers Name Role Phone Jacki Luther P.A.-C. Primary Care Provider [phone] Encounter Details Date Type Department Care Team Description 07/17/2018 Hospital Encounter Department of Jacki Luther Adult Examination Normal; Laboratory Medicine Cristhian Larson Trisomy 21 (HCC) in [address] [address] [place], [place] [phone] (Work) [phone] Social History Tobacco Use Types Packs/Day Years Used Date Smoking Tobacco: Never Smokeless Tobacco: Never Sex Assigned at Date Recorded Not on file documented as of this encounter Medications at Time of Discharge Medication Sig Dispensed Refills Start Date End Date chlorhexidine Take 15 mL by mouth 0 02/21/2016 (for_PERIDEX) 0.12 % at bedtime. mouthwash coal tar (PREM-GEL) 0.5 % Apply 1 application 0 shampoo topically every other day as needed for dandruff. multivitamin tablet Take 2 tablets by 0 3 mouth daily. amoxicillin (AMOXIL) 500 Take 4 capsules 4 capsule 4 201807/24/2018 mg capsule (2,000 mg total) by mouth See Admin Instructions. Prior to dental appointments calcipotriene (DOVONOX) Apply sparingly to 60 g 2 07/201808/30/2018 0.005 % ointment thick plaques on arms and buttock twice daily Mondays- carbamide peroxide Administer 5 drops 30 mL 1 9 12/31/2019 (DEBROX) 6.5 % otic into each ear 2 solution (two) times a day as needed for other (Ear wax). FLUORIDE, SODIUM, DENTAL Apply 1 application 0 12/31/2019 topically 2 (two) times a day. mometasone (ELOCON) 0.1 % Apply sparingly to 45 g 4 12/31/2019 ointment thick plaques on trunk and extremities once daily for 2 weeks at a time mometasone (ELOCON) 0.1 % APPLY SPARINGLY TO 45 g 2 12/31/2019 ointment THICK PLAQUES ON ARMS AND BUTTOCKS ONCE DAILY FRIDAYS-SUNDAYS warfarin (COUMADIN) 3 mg 1 tab by mouth on 90 tablet 3 09/201701/30/2019 tabletIndications: Tues and 1/2 tab all Primary Hypercoagulation other days or as Syndrome (HCC) directed by INR clinic. warfarin (for_COUMADIN) warfarin 2.5 mg oral 0 08/29/2021 2.5 mg tablet tablet See Instructions, 5mg Sun, Tu & , 2.5mg all other days or as directed per INR Clinic as of 09/29/2016, 30 tab(s) documented as of this encounter Plan of Treatment Not on filedocumented as of this encounter Procedures Procedure Name Priority Date/Time Associated Diagnosis Comme nts LIPID PANEL, S Routine 07/17/2018 7:46 AM Well Adult Results for this [facility]ILD [facility]ARE C[facility] WORKER Examination Normal procedure are in the results section. THYROID-STIMULATING Routine 07/17/2018 7:46 AM Well Adult Re sults for this HORMONE-SENSITIVE [facility]ILD [facility] C[facility] WORKER Examination No rmal procedure are in (S-TSH) Trisomy 21 (HCC) the results section. GLUCOSE, FASTING, Routine 07/17/2018 7:46 AM Well Adult Resu lts for this S/P [facility] WORKER Examination Normal procedure are in the results section. documented in this encounter Results (ABNORMAL) S-TSH (Thyroid-Stimulating Hormone - Sensitive) (07/17/2018 7:46 AM [facility] WORKER) P athologist Signature TSH, Sensitive 8.3 (H) 0.3 - 4.2 07/17/2018 [facility] mIU/L 8:54 AM [facility] Comment: Biotin has been identified by the isi borrego as a potential interfering substance. ??Higher concentr ations of biotin may be found in multivitamins, hair/nail supple ments, and workout supplements. ??If the result does not ma [facility] clinical observations, repeat testing after patient refrains fr om the use of supplements for at least 12 hours. Specimen Anatomical Collection Method Collection Time Receive d Time (Source) Location / / Volume Laterality Blood (Blood, 07/17/2018 7:46 AM 07/17/19 7:48 Venous) CHILD [facility]ARE C[facility] WORKER AM [facility] WORKER Jacki Luther P.A.-C. LAB BLOOD ADD-ON Performing Organization Address [facility] Phon e Number [address] [address] [facility] Glucose, Fasting (07/17/2018 7:46 AM [facility] WORKER) athologist Signature Glucose, 91 70 - 99 07/17/2018 [facility] Fasting, S mg/dL 8:37 AM [facility] Specimen Anatomical Collection Method Collection Time Receive d Time (Source) Location / / Volume Laterality Blood (Blood, 07/17/2018 7:46 AM 07/17/19 7:48 Venous) CH[facility] WORKER AM [facility] WORKER Jacki Luther P.A.-C. LAB BLOOD NON ADD-ON Performing Organization Address City/[facility] Phon e Number [address] [address] [facility] Lipid Panel (07/17/2018 7:46 AM [facility] WORKER) P athologist Signature Cholesterol, 194 mg/dL 07/17/2018 [facility] Total 8:37 AM [facility] Comment: ----REFERENCE VALUE---- Desirable: < 200 Borderline high: 200 - 239 High: > or = 240 Triglycerides 127 mg/dL 07/17/2018 8:37 AM [facility] Comment: ----REFERENCE VALUE---- Normal: <150 Borderline high: 150-199 High: 200-499 Very high: > or =500 Cholesterol, HDL, S 50 >=50 mg/dL 07/17/2018 8:37 AM [facility] WORKER [facility] Calculated LDL 119 mg/dL 07/17/2018 8:37 AM [facility] WORKER [facility] [facility] Comment: ----REFERENCE VALUE---- Desirable: <100 Above Desirable: 100-129 Borderline high: 130-159 High: 160-189 Very high: > or =190 Cholesterol, Non-HDL, 144 mg/dL 07/17/2018 8:37 AM [facility] WORKER [facility] [facility] LAB Comment: ----REFERENCE VALUE---- Desirable: <130 Above Desirable: 130-159 Borderline high: 160-189 High: 190-219 Very high: > or =220 Specimen Anatomical Collection Method Collection Time Receive d Time (Source) Location / / Volume Laterality Blood (Blood, 07/17/2018 7:46 AM 07/17/19 19 7:48 Venous) CHILD [facility]ARE C[facility] WORKER AM [facility] WORKER Jacki Luther P.A.-C. LAB BLOOD ADD-ON Performing Organization Address City/State/ZIP Code Phon e Number [facility]- [address] [place] [phone] [place] [address] LAB documented in this encounter Visit Diagnoses Diagnosis Well Adult Examination Normal Trisomy 21 (HCC) documented in this encounter Care Teams Assistance Coordinator Relationship Specialty Start Date End Date Jacki Luther P.A.-C. PCP - General Family Medicine 05/24/18 09/24/19 documented as of this encounter
--- OUTSIDE RECORDS SUMMARY | 2022-04-25 15:56 | XMS_ITS | Encounter Summary ---
:1975 Author Organization [facility] Address [address] [place] [address] Care Team Providers Name Role Phone Jacki Luther P.A.-C. Primary Care Provider [phone] Encounter Details Date Type Department Care Team Description 07/13/2018 Hospital Encounter Department of Jacki Luther Adult Radiology in Seth Larson P.A.-C. Examination [place], [place] [address] [place] [phone] Social History Tobacco Use Types Packs/Day Years [...] daily for 2 weeks at a time warfarin (COUMADIN) 3 mg 1 tab by [...] Procedure Name Priority Date/Time Associated Comments Diagnosis US PELVIS RAD - Routine 07/13/2018 4:26 Well Adult Results for TRANSABDOMINAL (most inpatients PM CRAB STEAMER Examination this proc edure and all Normal are in the outpatients) results section. documented in this encounter Results US Pelvis Transabdominal (07/13/2018 4:26 PM CRAB STEAMER) Anatomical Region Laterality Modality Pelvis, Ultrasound RST LOS, Ultrasound ARZ LOS, Ultrasound F LA N/A Ultrasound LOS Specimen (Source) Anatomical Collection Method Collection Time Re ceived Time Location / / Volume Laterality 07/13/2018 4:26 PM CRAB STEAMER Impressions 07/13/2018 4:30 PM CRAB STEAMER IMPRESSION: 1. Negative for uterine or bilateral ova jabari masses. Narrative 07/13/2018 4:30 PM CRAB STEAMER EXAM: US PELVIS TRANSABDOMINAL COMPARISON: Ultrasound 07/01/16 TECHNIQUE: ??Transabdominal. FINDINGS: ??Transvaginal exam was not pe rformed. Uterus: 2 x 4 x 5 cm. Negative for uteri ne masses. Myometrium: Normal. Endometrium: Normal. Thickness is 6 mm Right ovary: Normal. Ovarian volume: 1 m L. Left ovary: Normal. Ovarian volume: 1 mL . Intraperitoneal Fluid: None. Procedure Note Morteza Liang M.D. - 07/13/2018 EXAM: US PELVIS TRANSABDOMINAL COMPARISON: Ultrasound 07/01/16 TECHNIQUE: Transabdominal. FINDINGS: Transvaginal exam was not perf ormed. Uterus: 2 x 4 x 5 cm. Negative for uteri ne masses. Myometrium: Normal. Endometrium: Normal. Thickness is 6 mm Right ovary: Normal. Ovarian volume: 1 m L. Left ovary: Normal. Ovarian volume: 1 mL . Intraperitoneal Fluid: None. IMPRESSION: 1. Negative for uterine or bilateral ova jabari masses. Jacki Luther P.A.-C. IMG US PROCEDURES documented in this encounter Visit Diagnoses Diagnosis Well Adult Examination Normal documented in this encounter Care Teams Help Desk Agent Relationship Specialty Start Date End Date Jacki Luther P.A.-C. PCP - General Family Medicine 05/24/18 09/24/19 documented as of this encounter
--- OUTSIDE RECORDS SUMMARY | 2022-04-25 15:56 | XMS_ITS | Encounter Summary ---
:1975 Author Organization [facility] Address [address] [place] [address] Care Team Providers Name Role Phone Jacki Luther P.A.-C. Primary Care Provider Reason for Referral Outpatient (Routine) - Closed Specialty Diagnoses / Procedures Referred By Contact Refer red To Contact Dermatology Jus Foley M.D . [facility] [address] [place] [phone] Referral ID Status Reason Start Date Expiration Date Visits Requ ested Visits Authorized [id number] Closed 06/05/2018 06/05/2019 1 1 Scheduling Instructions Psoriasis recheck in 2 months. ERVATION POLICY ANALYST Reason for Visit Reason Comments Psoriasis Outpatient (Routine) - Closed Specialty Diagnoses / Procedures Referred By Contact Refer red To Contact Dermatology Jus Foley M.D . [facility] [address] [place] [phone] Referral ID Status Reason Start Date Expiration Date Visits Requ ested Visits Authorized [id number] Closed 04/23/2018 04/23/2019 1 1 Encounter Details Date Type Department Care Team Description 06/05/2018 Office Visit Department of Jus Foley, Psoriasis (Primary Dx) Dermatology in [place], [place] [address] [phone] Social History Tobacco Use Types Packs/Day Years Used Date Smoking Tobacco: Never Smokeless Tobacco: Never Sex Assigned at Date Recorded Not on file documented as of this encounter Progress Notes Jus Foley M.D. - 06/05/2018 3:30 PM CST CHIEF COMPLAINT Recheck psoriasis HISTORY OF THE PRESENT ILLNESS Hue Medina is a [facility] [employer] worker who has Down syndromebut lives independently. She is accompanied by mother and she is being seen by me for recheck of psoriasis. During my initial visit with her on 04/23/18, she reported that she initially experienced psoriasis eruptions at the age of 12. She was treating the psoriasis with ubha-tgy-dcazves Oxipor 5% coal-tar lotion and symptoms were controlled with use. Recently, the Oxipor lotion was discontinued per the pharmacy. Since the patient discontinued use of the Oxipor lotion, she experienced increased psoriasis eruptions to the legs, arms, trunk, buttocks and scalp. She reported some associated itchiness to involved areas intermittently. As an alternative treatment, the patient was using T-gel shampoo tothe scalp every other day; however, she had not experienced improvement of symptoms. During my visit on 04/23/18, the patient had widespread psoriasis with thicker plaques involving thebuttock and arms. As I did not feel topical steroids will be sufficient treatment for the thick psoriasiform plaques, I recommended narrow band UVB phototherapy at [facility]. The patient and her mother were interested in this, but preferred to defer beginning treatment until after the conclusion of the patient's bowling season. I recommended Dovonex ointment twice daily to thicker plaques involving the buttock and arms for Mondays through . Additionally, I recommended Mometasone ointment used sparingly once daily to thick plaques involving buttock and arms Fridays through Sundays. We i ntended to use the thicker plaques as target lesions to see how she responds prior to the phototherapy. According to mom who accompanies her today, she has used the Dovonex ointment twice daily to the arms Mondays through and once daily to the buttocks Mondays for . They have applied mometasone ointment once daily to the arms and buttocks Fridays through Sundays. They have not treated the legs. Mom feels that the arms have improved but the buttocks with only once daily treatments has not and the legs which they have not treated whatsoever have not. She has arthritis to the joints but has been given no indication the arthritis is related to her psoriasis. The patient's sister has arthritis and the patient's aunt has psoriatic arthritis. The patient has a history of Down's syndrome and lives independently. 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 Skin: Examination of scalp, face, trunk and extremities done in clinic today. Examination today reveals thick psoriasiform large plaques involving buttocks as well as legs. Examination of her arms reveals psoriasiform plaques that are thinning especially involving the elbow and extensor arms where shehas done the treatment. No scalp involvement today and no pustules noted. IMPRESSION AND PLAN #1 Legs, arms, buttocks and trunk: Plaque psoriasis Patient has thick plaque psoriasis involving her buttocks and legs and slightly thinner plaques involving the arms. As noted above, she has improved where she was able to get the Dovonex ointment twicedaily Mondays through to her arms and the mometasone ointment once daily for Fridays through Sundays. She has only been able to get the Dovonex ointment once daily to the buttocks Mondays through and the mometasone ointment once daily Fridays her Sundays in subsequently has not hadmuch in the way of improvement involving the buttocks. She did not treat thighs or legs. As we had previously discussed, topical treatments would not be enough and given her history of down syndrome, Ifelt that narrowband UVB phototherapy 3 times per week in [place] would be the ideal treatment. They deferred treatment as she had bowl in which was ending in mid May. However, they now prefer not to do the narrowband UVB phototherapy at [place] just given the driving distance. They are asking whether not home unit can be prescribed and I will look into it from [facility] as well as with the company given that the patient does have Down syndrome and the treatments would need to be monitored and operated by her mom. Mom will also discuss with the case reviewer with good heel count knee regarding getting a home unit what would be involved in whether Medicaid would cover it. Both mom and I will reach out to each other on the phone to discuss in the next few weeks once we have more informationand a follow-up appointment was made for early July in any event. In the meantime they will continue the topical regimen of the Dovonex and mometasone as outlined in details above. All questions answered. PATIENT EDUCATION Ready to learn. No apparent learning barriers were identified. Learning preferences include listening. Explained diagnosis and treatment plan; patient/guardian of patient expressed understanding of thecontent. ERVATION POLICY ANALYST documented in this encounter Plan of Treatment Scheduled Referrals Name Type Priority Associated Order Schedule Diagnoses Dermatology office Outpatient Referral Routine Ex pected: visit (clinic) 06/05/2018 (Approximate), Expires: 06/05/2021 documented as of this encounter Visit Diagnoses Diagnosis Psoriasis - Primary documented in this encounter Care Teams Automation Machine Operator Relationship Specialty Start Date End Date Jacki Luther P.A.-C. PCP - General Family Medicine 05/24/18 09/24/19 documented as of this encounter
--- OUTSIDE RECORDS SUMMARY | 2022-04-25 15:56 | XMS_ITS | Encounter Summary ---
:1975 Author Organization [facility] Address [address] [place] [address] Care Team Providers Name Role Phone Jacki Luther P.A.-C. Primary Care Provider Encounter Details Date Type Department Care Team Description 06/14/2018 Orders Only Department of Dermatology in Jus Lawton M.D. [facility] [address] [place] [phone] (Wo rk) Social History Tobacco Use Types Packs/Day Years Used Date Smoking Tobacco: Never Smokeless Tobacco: Never Sex Assigned at Date Recorded Not on file documented as of this encounter Plan of Treatment Not on filedocumented as of this encounter Visit Diagnoses Not on filedocumented in this encounter Care Teams Ekg Manager Relationship Specialty Start Date End Date Jacki Luther P.A.-C. PCP - General Family Medicine 05/24/18 09/24/19 documented as of this encounter
--- OUTSIDE RECORDS SUMMARY | 2022-04-25 15:56 | XMS_ITS | Encounter Summary ---
:1975 Author Organization [facility] Address [address] [place] [address] Care Team Providers Name Role Phone Jacki Luther P.A.-C. Primary Care Provider [phone] Encounter Details Date Type Department Care Team Description 07/12/2018 Clinical Communication Department of [facility] Iris Luther [facility] Rowan Larson [facility], [id number] [place] [address] [phone] (Work) [phone] Social History Tobacco Use Types Packs/Day Years Used Date Smoking Tobacco: Never Smokeless Tobacco: Never Sex Assigned at Date Recorded Not on file documented as of this encounter Miscellaneous Notes Telephone Encounter - Jacki Luther P.A.-C. - 07/13/2018 7:17 AM CHIMNEY SWEEPER Sent to pharmacy for patient NEY SWEEPER Telephone Encounter - Arlyn Phillips L.P.N. - 07/12/2018 2:39 PM CHIMNEY SWEEPER INFORMATION DISCUSSED I spoke with Zuleima Hicks's mother. She states that because Zuleima is on coumadin, she needs to take antibiotics prior to any dental appointments. The dentist's office no longer provides her with this, soshe needs to get it through her PCP. Fabiola states that Zuleima takes 4 tablets of Amoxacillin prior to her dental appointments. She has 4 appointment coming up next month, so they want to have 4 refills available. Prescription can be sent to [facility] in [place]. PLAN Disposition/Recommendation: awaiting provider recommendations Information: patient/caller able to repeat back in their own words Caller agreeable to plan of care: yes The following references were used: none NEY SWEEPER Telephone Encounter - Carole Shaver - 07/12/2018 9:51 AM CST Patient's mom, Fabiola, states that her daughter was seen by Jacki Luther on 07/10/18 and she just realized she forgot to bring something up during the appointment. Please reach out to Fabiola to discuss at [phone]. Thank you NEY SWEEPER documented in this encounter Plan of Treatment Not on filedocumented as of this encounter Visit Diagnoses Not on filedocumented in this encounter Care Teams Office Support Associate Relationship Specialty Start Date End Date Jacki Luther P.A.-C. PCP - General Family Medicine 05/24/18 09/24/19 documented as of this encounter
--- OUTSIDE RECORDS SUMMARY | 2022-04-25 15:56 | XMS_ITS | Encounter Summary ---
:1975 Author Organization [facility] Address [address] [place] [address] Care Team Providers Name Role Phone Jacki Luther P.A.-C. Primary Care Provider Encounter Details Date Type Department Care Team Description 06/27/2018 Clinical Communication Department of Jus Foley, Dermatology in [place], [place] [address] [phone] [phone] Social History Tobacco Use Types Packs/Day Years Used Date Smoking Tobacco: Never Smokeless Tobacco: Never Sex Assigned at Date Recorded Not on file documented as of this encounter Miscellaneous Notes Telephone Encounter - Aimee Loyola R.N. - 06/27/2018 10:28 AM CST [facility] OF EMPLOYEE RELATIONS Telephone Encounter - Emily Duarte - 06/27/2018 10:04 AM CST The calcipotriene ointment was sent to the wrong pharmacy. Can this be sent to [facility] in [place]. Please let Fabiola know when this is done [phone] GER OF EMPLOYEE RELATIONS documented in this encounter Plan of Treatment Not on filedocumented as of this encounter Visit Diagnoses Not on filedocumented in this encounter Care Teams Piping Manager Relationship Specialty Start Date End Date Jacki Luther P.A.-C. PCP - General Family Medicine 05/24/18 09/24/19 documented as of this encounter
--- OUTSIDE RECORDS SUMMARY | 2022-04-25 15:56 | XMS_ITS | Encounter Summary ---
:1975 Author Organization [facility] Address [address] [place] [address] Care Team Providers Name Role Phone Jacki Luther P.A.-C. Primary Care Provider Encounter Details Date Type Department Care Team Description 07/17/2018 Anticoagulation Visit Department of Hari Garibay For Therapeutic Drug Therapy; Anticoagulation in [facility], Longterm Anticoagulant Treatment; Rosa Car M.D. Primary Hypercoagulation Syndrome (HCC) [address] [facility] [phone] (Work) Social History Tobacco Use Types Packs/Day Years Used Date Smoking Tobacco: Never Smokeless Tobacco: Never Sex Assigned at Date Recorded Not on file documented as of this encounter Plan of Treatment Not on filedocumented as of this encounter Visit Diagnoses Diagnosis Monitoring For Therapeutic Drug Therapy Longterm (Current) Anticoagulant Treatm ent Primary Hypercoagulation Syndrome (HCC) documented in this encounter Care Teams Research Instrumentation Technician Relationship Specialty Start Date End Date Jacki Luther P.A.-C. PCP - General Family Medicine 05/24/18 09/24/19 documented as of this encounter
--- OUTSIDE RECORDS SUMMARY | 2022-04-25 15:56 | XMS_ITS | Encounter Summary ---
:1975 Author Organization [facility] Address [address] [place] [address] Care Team Providers Name Role Phone Jacki Luther P.A.-C. Primary Care Provider Encounter Details Date Type Department Care Team Description 06/05/2018 Anticoagulation Visit Department of Marina Garibay Hypercoagulation Syndrome (HCC); Anticoagulation in [place] For Therapeutic Drug Therapy; Seth Car M.D. Computer Architect Anticoagulant Treatment [facility] [phone], [facility] [phone] Social History Tobacco Use Types Packs/Day Years Used Date Smoking Tobacco: Never Smokeless Tobacco: Never Sex Assigned at Date Recorded Not on file documented as of this encounter Progress Notes Nichole Bowers, RMichaelN. - 06/05/2018 4:00 PM CST Warfarin Maintenance Nursing Protocol Goal Range 2.0-3.0 (version approved 02/24/17) Visit Type: Patient presents for Vmsb-dm-Bizs visit in Anticoagulation Service. Primary reason for [...] No change in weekly dose. Next INR: 15 days per Screening Criteria because prompts INR recheck sooner than indicated by maintenance warfarin dosing and follow-up table. Pt on LMWH: No Patient Visit summary provided to: Patient provided with handout of warfarin dosing and next INR appointment. patient repeats back dosing instructions and has no further questions at this time. Patient is agreeable to the plan of care yes NG TECHNIQUES DEMONSTRATOR documented in this encounter Plan of Treatment Not on filedocumented as of this encounter Procedures Procedure Name Priority Date/Time Associated Diagnosis Comme nts INR, POCT, B Routine 06/05/2018 4:03 PM Results f or this SEWING TECHNIQUES DEMONSTRATOR procedure are i n the results section . documented in this encounter Results INR, POCT (06/05/2018 4:03 PM SEWING TECHNIQUES DEMONSTRATOR) P athologist Signature INR, POCT, B 2.0 06/05/2018 [facility] 4:03 PM SEWING TECHNIQUES DEMONSTRATOR [facility] Comment: ----ADDITIONAL INFORMATION---- Standard intensity warfarin therapeutic range: 2.0 to 3.0 ?? High intensity warfarin therapeutic rang e: 2.5 to 3.5 Specimen Anatomical Collection Method Collection Time Receive d Time (Source) Location / / Volume Laterality 06/05/2018 4:03 PM 8 4:05 SEWING TECHNIQUES DEMONSTRATOR PM SEWING TECHNIQUES DEMONSTRATOR Generic [facility] POCT ORDERABLES - DEVICE Performing Organization Address City/State/ZIP Code Phon e Number [facility]- [address] [place] [phone] [facility] documented in this encounter Visit Diagnoses Diagnosis Primary Hypercoagulation Syndrome (HCC) Monitoring For Therapeutic Drug Therapy Computer Architect (Current) Anticoagulant Treatm ent documented in this encounter Care Teams Carpenter Bridge Relationship Specialty Start Date End Date Jacki Luther P.A.-C. PCP - General Family Medicine 05/24/18 09/24/19 documented as of this encounter
--- OUTSIDE RECORDS SUMMARY | 2022-04-25 15:56 | XMS_ITS | Encounter Summary ---
:1975 Author Organization [facility] Address [address] [place] [address] Care Team Providers Name Role Phone Jacki Luther P.A.-C. Primary Care Provider Reason for Visit Reason Onset Date Comments Medication Question 06/13/2018 Encounter Details Date Type Department Care Team Description 06/13/2018 Clinical Communication Department of Jus Foley icashana Question Dermatology in [place], [address] [address] [place], [place] [phone] (Work) [phone] Social History Tobacco Use Types Packs/Day Years Used Date Smoking Tobacco: Never Smokeless Tobacco: Never Sex Assigned at Date Recorded Not on file documented as of this encounter Miscellaneous Notes Telephone Encounter - Amalia Riley L.P.N. - 06/13/2018 2:30 PM CST Patients mother is relaying the following information: She spoke to patients trimming caser regarding the lights for pso. The trimming caser stated just write the script for the patient and the family will get it to the adult services librarian to have filled STICS SERVICE REPRESENTATIVE Telephone Encounter - Samantha Phillips - 06/13/2018 12:39 PM CST Patient's Mother Fabiola called and would like to talk to Dr. Foley regarding lights they talked about at Jade's last visit. Mom said she has some answers from patient's first calender worker. Please call Fabiola at [phone] Thank you. STICS SERVICE REPRESENTATIVE documented in this encounter Plan of Treatment Not on filedocumented as of this encounter Visit Diagnoses Not on filedocumented in this encounter Care Teams Informatica Mdm Developer Relationship Specialty Start Date End Date Jacki Luther P.A.-C. PCP - General Family Medicine 05/24/18 09/24/19 documented as of this encounter
--- OUTSIDE RECORDS SUMMARY | 2022-04-25 15:56 | XMS_ITS | Encounter Summary ---
:1975 Author Organization [facility] Address [address] [place] [address] Care Team Providers Name Role Phone Jacki Luther P.A.-C. Primary Care Provider Encounter Details Date Type Department Care Team Description 07/13/2018 Hospital Encounter Department of Jacki Luther Mammogram Radiology in Seth Larson P.A.-C. Average Risk Patient [place], [place] [address] [place] [address] [phone] Social History Tobacco Use Types Packs/Day Years [...] Comments Diagnosis BI BREAST RAD - Routine 07/13/2018 2:49 Screening Results for this SCREENING (most inpatients PM DESKTOP SUPPORT MANAGER Mammogram Average proced ure are in BILATERAL and all Risk Patient the results outpatients) section. documented in this encounter Results BI Breast Screening Bilateral (07/13/2018 2:49 PM DESKTOP SUPPORT MANAGER) Anatomical Region Laterality Modality Breast, Breast Imaging RST LOS, Breast Imaging ARZ LOS, Amanda st Bilateral Mammography Imaging [facility] Specimen (Source) Anatomical Collection Method Collection Time Re ceived Time Location / / Volume Laterality 07/13/2018 3:36 PM DESKTOP SUPPORT MANAGER Impressions 07/13/2018 3:37 PM DESKTOP SUPPORT MANAGER IMPRESSION: ??Negative. RECOMMENDATION: ??Annual Screening Mammo gram ASSESSMENT: ??BI-RADS: 1: Negative. Narrative 07/13/2018 3:37 PM DESKTOP SUPPORT MANAGER EXAM: ??BI BREAST SCREENING BILATERAL Current study was evaluated with a Compu ter Aided Detection (CAD) system. INDICATION: ??Screening mammogram. COMPARISON: ??Prior exam(s) were availab le and reviewed for comparison. DENSITY: ??c. The breast(s) are heteroge neously dense, which may obscure small masses. FINDINGS: ??No mammographic findings of malignancy. Procedure Note Johnnie Stark M.D. - 07/13/2018Formatti ng of this note might be different from [...] Screening Mammogr am ASSESSMENT: BI-RADS: 1: Negative. Jacki Luther P.A.-C. IMG BI PROCEDURES documented in this encounter Visit Diagnoses Diagnosis Screening Mammogram Average Risk Patient documented in this encounter Care Teams Fiberglass Laminator Relationship Specialty Start Date End Date Jacki Luther P.A.-C. PCP - General Family Medicine 05/24/18 09/24/19 documented as of this encounter
--- OUTSIDE RECORDS SUMMARY | 2022-04-25 15:56 | XMS_ITS | Encounter Summary ---
:1975 Author Organization [facility] Address [address] [place] [address] Care Team Providers Name Role Phone Jacki Luther P.A.-C. Primary Care Provider Encounter Details Date Type Department Care Team Description 07/17/2018 Anticoagulation Visit Department of Marina Garibay Anticoagulation in [place], Hypercoag ulation Seth Car M.D. Syndrome (HCC) [facility] [address] [place] [address] [address] [place], [facility] [phone] Social History Tobacco Use Types Packs/Day Years Used Date Smoking Tobacco: Never Smokeless Tobacco: Never Sex Assigned at Date Recorded Not on file documented as of this encounter Progress Notes Nichole Bowers, RMichaelNMichael - 07/17/2018 8:00 AM CST Warfarin Maintenance Nursing Protocol Goal Range 2.0-3.0 (version approved 02/24/17) Visit Type: Patient presents for Bfng-zo-Zgqd visit in Anticoagulation Service. Primary reason for [...] agreeable to the plan of care yes TERER TENDER documented in this encounter Plan of Treatment Not on filedocumented as of this encounter Procedures Procedure Name Priority Date/Time Associated Diagnosis Comme nts INR, POCT, B Routine 07/17/2018 8:03 AM Results f or this PLASTERER TENDER procedure are i n the results section . documented in this encounter Results INR, POCT (07/17/2018 8:03 AM PLASTERER TENDER) P athologist Signature INR, POCT, B 3.0 07/17/2018 [facility] 8:03 AM PLASTERER TENDER [facility] Comment: ----ADDITIONAL INFORMATION---- Standard intensity warfarin therapeutic range: 2.0 to 3.0 ?? High intensity warfarin therapeutic rang e: 2.5 to 3.5 Specimen Anatomical Collection Method Collection Time Receive d Time (Source) Location / / Volume Laterality 07/17/2018 8:03 AM 9 8:05 PLASTERER TENDER AM PLASTERER TENDER Generic [facility] POCT ORDERABLES - DEVICE Performing Organization Address City/State/[facility] Code Phon e Number [facility]- [address] [place] [phone] [facility] documented in this encounter Visit Diagnoses Diagnosis Primary Hypercoagulation Syndrome (HCC) documented in this encounter Care Teams Flight Information Expediter Relationship Specialty Start Date End Date Jacki Luther P.A.-C. PCP - General Family Medicine 05/24/18 09/24/19 documented as of this encounter
--- OUTSIDE RECORDS SUMMARY | 2022-04-25 15:56 | XMS_ITS | Encounter Summary ---
:1975 Author Organization [facility] Address [address] [place] [address] Care Team Providers Name Role Phone Jacki Luther P.A.-C. Primary Care Provider [phone] Encounter Details Date Type Department Care Team Description 06/20/2018 Anticoagulation Visit Department of Marina Garibay Hypercoagulation Syndrome (HCC); Anticoagulation in [place] [facility]rapeutic [facility]; Seth Car M.D. Family Services Manager Anticoagulant Treatment [facility] [address], [facility] [phone] Social History Tobacco Use Types Packs/Day Years Used Date Smoking Tobacco: Never Smokeless Tobacco: Never Sex Assigned at Date Recorded Not on file documented as of this encounter Progress Notes Lili Manzo R.N. - 06/20/2018 3:15 PM CST Warfarin Maintenance Nursing Protocol Goal Range 2.0-3.0 (version approved 02/24/17) Visit Type: Patient presents for Rceu-lp-Liad visit in Anticoagulation Service. Primary reason for [...] warfarin dosing and next INR appointment. patient and mother repeats back dosing instructions and has no further questions at this time. Patient is agreeable to the plan of care yes RACT MANAGER documented in this encounter Plan of Treatment Not on filedocumented as of this encounter Procedures Procedure Name Priority Date/Time Associated Diagnosis Comme nts INR, POCT, B Routine 06/20/2018 3:07 PM Results f or this CONTRACT MANAGER procedure are i n the results section . documented in this encounter Results INR, POCT (06/20/2018 3:07 PM CONTRACT MANAGER) athologist Signature INR, POCT, B 2.1 06/20/2018 [facility] 3:07 PM CONTRACT MA[facility] Comment: ----ADDITIONAL INFORMATION---- Standard intensity warfarin therapeutic range: 2.0 to 3.0 ?? High intensity warfarin therapeutic rang e: 2.5 to 3.5 Specimen Anatomical Collection Method Collection Time Receive d Time (Source) Location / / Volume Laterality 06/20/2018 3:07 PM 8 3:09 CONTRACT MANAGER PM CONTRACT MANAGER Generic [facility] POCT ORDERABLES - DEVICE Performing Organization Address City/State/ZIP Code Phon e Number [facility]- [address] [place] [address] [facility] documented in this encounter Visit Diagnoses Diagnosis Primary Hypercoagulation Syndrome (HCC) Monitoring For Therapeutic Drug Therapy Family Services Manager (Current) Anticoagulant Treatm ent documented in this encounter Care Teams Medicare Coordinator Relationship Specialty Start Date End Date Jacki Luther P.A.-C. PCP - General Family Medicine 05/24/18 09/24/19 documented as of this encounter
--- OUTSIDE RECORDS SUMMARY | 2022-04-25 15:56 | XMS_ITS | Encounter Summary ---
:1975 Author Organization [facility] Address [address] [place] [address] Care Team Providers Name Role Phone Edward Luther P.A.-C. Primary Care Provider Reason for Referral Outpatient (Routine) - Closed Specialty Diagnoses / Procedures Referred By Contact Refer red To Contact Orthopedic Surgery Diagnoses Pain Knee Right Edward Luther [facility] P.A.-C. [address] [place], [place] [address] Referral ID Status Reason Start Date Expiration Date Visits Requ ested Visits Authorized [id number] Closed 07/10/2018 07/10/2019 1 1 Scheduling Instructions Ortho internal referral panel order, renan ging before Consult visit ER HELPER Reason for Visit Reason Comments Annual Exam Appointment Request (Routine) - Closed Specialty Diagnoses / Procedures Referred By Contact Refer red To Contact Family Medicine Referral ID Status Reason Start Date Expiration Date Visits Requ ested Visits Authorized [id number] Closed 05/24/2018 05/24/2019 1 Encounter Details Date Type Department Care Team Description 07/10/2018 Comprehensive Visit Department of Edward Luther [facility] Adult Examination Normal (Primary Dx); Family MedicineMarsha PMichaelAMichael-Lance Trisomy 21 (HCC); [place] [address] [facility] Screening Mammogram Average Risk Patient ; Clinic, in [facility] Sammie I mpacted Bilateral; [facility] [address] Pain Knee Right [address] [place] [address] BLVD (Work) [place], [place] [phone] (Fax) [phone] Social History Tobacco Use Types Packs/Day Years Used Date Smoking Tobacco: Never Smokeless Tobacco: Never Sex Assigned at Date Recorded Not on file documented as of this encounter Last Filed Vital Signs Vital Sign Reading Time Taken Comments Blood Pressure 105/56 07/10/2018 4:20 PM CHASER HELPER Pulse 69 07/10/2018 4:20 PM CHASER HELPER Temperature 36.4 ??C (97.5 ??F) 07/10/2018 4:20 PM CHASER HELPER Respiratory Rate 16 07/10/2018 4:20 PM CHASER HELPER Oxygen Saturation 100% 07/10/2018 4:20 PM CHASER HELPER Inhaled Oxygen Concentration - - Weight 71.9 kg (158 lb 8.2 oz) 07/10/2018 4:20 PM CHASER HELPER Height - - Body Mass Index 33.73 04/20/2017 7:23 AM CDT documented in this encounter H&P Notes Edward Luther P.A.-C. - 07/10/2018 4:30 PM CST SUBJECTIVE CHIEF COMPLAINT/REASON FOR VISIT Hue Medina is a 43 y.o. female who presents for annual wellness exam and follow-up of her chronic medical problems. HISTORY OF PRESENT ILLNESS Zuleima is a 43 year old female who presents today with mother for annual wellness exam. Patient Active Problem List Diagnosis ??? Thrombophlebitis Deep Vein Lower Extremity (HCC) ??? Primary Hypercoagulation Syndrome (HCC) ??? Deficiency Protein S (HCC) ??? Thrombosis Deep Vein Acute Lower Extremity (HCC) ??? Anticoagulant Therapy [Z79.01] ??? Defect Atrial Ventricular Canal Complete (HCC) ??? Monitoring For Therapeutic Drug Therapy [Z51.81] ??? Informatics Manager Anticoagulant Treatment [Z79.01] ??? Hyperlipidemia Mixed ??? Trisomy 21 (HCC) ??? Tricuspid Valve Disorder Acquired ??? Regurgitation Mitral ??? Psoriasis ??? Impaired Fasting Glucose ??? Stenosis Mitral Congenital (HCC) ??? Menstrual Irregularity MEDICAL HISTORY Past Medical History: Diagnosis Date ??? Gallstone Without Obstruction 05/29/2014 SURGICAL HISTORY Past Surgical History: Procedure Laterality Date ??? [...] N/A 03/29/2013 AV - Atrioventricular valve operation ALLERGIES Bee venom protein (honey bee); Chloramphenicol; and Quinolones CURRENT MEDICATIONS Current Outpatient Medications Medication Sig ??? calcipotriene (DOVONOX) 0.005 % ointment Apply sparingly to thick plaques on arms and buttock twice daily Mondays- ??? coal tar (PREM-GEL) 0.5 % shampoo Apply 1 application topically every other day as needed for dandruff. ??? FLUORIDE, SODIUM, DENTAL Apply 1 application topically 2 (two) times a day. ??? mometasone (ELOCON) 0.1 % ointment Apply sparingly to thick plaques on trunk and extremities once daily for 2 weeks at a time ??? multivitamin tablet Take 2 tablets by mouth daily. ??? warfarin (COUMADIN) 3 mg tablet 1 tab by mouth on and 1/2 tab all other days or as directedby INR clinic. ??? warfarin (for_COUMADIN) 2.5 mg tablet warfarin 2.5 mg oral tablet See Instructions, 5mg Mon, & , 2.5mg all other days or as directed per INR Clinic as of 09/29/2016, 30 tab(s) ??? chlorhexidine (for_PERIDEX) 0.12 % mouthwash Take 15 mL by mouth at bedtime. FAMILY HISTORY Family History Problem Relation Age of Onset ??? Breast cancer Aunt 59 ??? Thyroid dysfunction Aunt ??? Thyroid dysfunction Aunt ??? Aneurysm Aunt Brain ??? Aneurysm Uncle 64 aortic aneurysm and bulge SOCIAL HISTORY Patient lives alone and works at the [employer]. She has never been sexually active. Social History Substance Use Topics ??? Smoking status: Never Smoker ??? Smokeless tobacco: Never Used ??? Alcohol use Not on file REVIEW OF SYSTEMS General: No weight gain, no weight loss, no fever in past month EENT: No blurred vision, no double vision, no eye pain. Pulmonary: No shortness of breath, no cough, no wheezing, no sputum Cardiac: No chest pain, no chest pressure, no rapid beating, no irregular beating, no dependent edema GI: No heartburn, no nausea, no vomiting, no abdominal pain, no constipation, no diarrhea. : No burning/pain with urination, no excessive urination. Musculoskeletal: Right knee pain Skin: Psoriasis, being seen by dermatology Neuro: No significant headaches, no slurred speech Endocrine: No excessive thirst, no excessive bruising. OBJECTIVE PHYSICAL EXAMINATION Vital Signs: BP 105/56 (BP Location: Right arm, Patient Position: Sitting, Cuff Size: Regular) Pulse 69 Temp 36.4 ??C (Temporal) Resp 16 Wt 71.9 kg SpO2 100% ? No BMI 33.73 kg/m?? Body mass index is 33.73 kg/m??. General: The patient appears comfortable and in no acute distress. HEENT: Conjunctivae and lids are without erythema or discharge. Pupils are equal, round and reactiveto light. There is no scleral icterus. Extraocular muscles are intact. The ear canals are occluded bilaterally with cerumen. The oropharynx is clear and without lesions. Dentition and gums are intact. Lymphatic: There is no cervical or supraclavicular adenopathy. Lungs: The lungs are clear to auscultation bilaterally. No wheezes, rales or rhonchi. Heart: Heart is regular rate and rhythm. Normal S1 and S2 are present. There are no murmurs, rubs, or gallops present. There is no lower extremity edema present bilaterally. Abdomen: Soft, no hepatosplenomegaly, no masses, no tenderness to palpation. Active bowel sounds. Abdomen is nontender. Skin: Plaques over the bilateral dorsal hands. Skin is dry and warm. Extremities: Gait is normal. Psychiatric: The patient is alert. The patient's affect is not blunted. ASSESSMENT / PLAN #1 Annual Wellness exam today Discussed routine health maintenance for age. Lipid screen: Ordered Diabetes screen: Ordered Mammogram: Ordered Cervical Cancer Screening: Patient has never been sexually active and does not wish to have a pap smear. Previously ultrasound has been obtained. This was ordered for patient today. Immunizations: Td given today. #2 Trisomy 21 (HCC) Stable. Patient is quite independent living and working on her own. #3 Screening Mammogram Average Risk Patient Mammogram ordered for patient today. #4 Cerumen Impacted Bilateral Cerumen impaction noted today due to small ear canals. Irrigation was attempted however did not relieve the impaction. Debrox was ordered for patient to try at home and return for irrigation in the future. #5 Pain Knee Right Patient has been seen by Orthopedics in the past for right knee pain. The knee pain has been bothering her more and she is interested in a follow-up with Orthopedics for possible injection. This order was placed for her today. #6 Follow-up 1 year for annual exam or return to clinic sooner if any problems develop. Edward Luther P.A.-C. ER HELPER documented in this encounter Procedure Notes Arlyn Pereira L.PMichaelN. - 07/10/2018 4:30 PM CSTAssociated Order(s): EAR CERUMEN REMOVAL Post-Procedure Diagnose(s): Cerumen Impacted Bilateral Ear cerumen removal Date/Time: 07/10/2018 5:25 PM Performed by: ARLYN PEREIRA Authorized by: EDWARD LUTHER Pre-procedural details: Indication: cerumen impaction Procedure details: Location: Right ear and left ear Procedure type: irrigation Microscope used: no Post-procedure details: Post-procedure ear inspection: Impaction removal unsuccessful Procedure completed successfully: no Complications: no immediate complications ER HELPER documented in this encounter Plan of Treatment Scheduled Orders Name Type Priority Associated Diagnoses Order S chedule FAM proc ear wax Procedures Routine Cerumen Impacted Expecte d: 07/10/2018 removal Bilateral (Approximate), Expires: 2021 Scheduled Referrals Name Type Priority Associated Order Schedule Diagnoses Orthopedic Surgery - Outpatient Referral Routine Pain Knee Rig ht Expected: Knee non surgical 07/10/2018 consult (clinic) (Approximat e), Expires: 11/22/2019 documented as of this encounter Procedures Procedure Name Priority Date/Time Associated Comments Diagnosis PROCEDURE PLACEHOLDER Routine 07/10/2018 4:30 PM Cerumen Impac nelson Results for this CHASER HELPER Bilateral procedure are i n the results section. DC RMVL IMPACT Routine 07/10/2018 4:30 PM Cerumen Impacted Res ults for this CERUMEN IRRIG UNILAT CHASER HELPER Bilateral procedu re are in the results section. documented in this encounter Results (ABNORMAL) S-TSH (Thyroid-Stimulating Hormone - Sensitive) (07/17/2018 7:46 AM CHASER HELPER) athologist Signature TSH, Sensitive 8.3 (H) 0.3 - 4.2 07/17/2018 [facility] mIU/L 8:54 AM CHASER HELPER [facility] Comment: Biotin has been identified by the isi borrego as a potential interfering substance. ??Higher concentr ations of biotin may be found in multivitamins, hair/nail supple ments, and workout supplements. ??If the result does not ma [facility] clinical observations, repeat testing after patient refrains fr om the use of supplements for at least 12 hours. Specimen Anatomical Collection Method Collection Time Receive d Time (Source) Location / / Volume Laterality Blood (Blood, 07/17/2018 7:46 AM 07/17/19 7:48 Venous) CHASER HELPER AM CHASER HELPER Edward Luther P.A.-C. LAB BLOOD ADD-ON Performing Organization Address [facility] Phon e Number [id number] [place] [address] LAB Glucose, Fasting (07/17/2018 7:46 AM CHASER HELPER) athologist Signature Glucose, 91 70 - 99 07/17/2018 [facility] Fasting, S mg/dL 8:37 AM [facility] Specimen Anatomical Collection Method Collection Time Receive d Time (Source) Location / / Volume Laterality Blood (Blood, 07/17/2018 7:46 AM 07/17/19 19 7:48 Venous) CHASER HELPER AM CHASER HELPER Edward PierreCMichael LAB BLOOD NON ADD-ON Performing Organization Address [facility] Phon e Number [address] [address] [facility] Lipid Panel (07/17/2018 7:46 AM CHASER HELPER) P athologist Signature Cholesterol, 194 mg/dL 07/17/2018 [facility] Total 8:37 AM [facility] Comment: ----REFERENCE VALUE---- Desirable: < 200 Borderline high: 200 - 239 High: > or = 240 Triglycerides 127 mg/dL 07/17/2018 8:37 AM [facility] Comment: ----REFERENCE VALUE---- Normal: <150 Borderline high: 150-199 High: 200-499 Very high: > or =500 Cholesterol, HDL, S 50 >=50 mg/dL 07/17/2018 8:37 AM [facility] Calculated LDL 119 mg/dL 07/17/2018 8:37 AM CHASER HELPER [facility] Comment: ----REFERENCE VALUE---- Desirable: <100 Above Desirable: 100-129 Borderline high: 130-159 High: 160-189 Very high: > or =190 Cholesterol, Non-HDL, 144 mg/dL 07/17/2018 8:37 AM [facility] LAB Comment: ----REFERENCE VALUE---- Desirable: <130 Above Desirable: 130-159 Borderline high: 160-189 High: 190-219 Very high: > or =220 Specimen Anatomical Collection Method Collection Time Receive d Time (Source) Location / / Volume Laterality Blood (Blood, 07/17/2018 7:46 AM 07/17/19 19 7:48 Venous) CHASER HELPER AM CHASER HELPER Edward Luther P.A.-C. LAB BLOOD ADD-ON Performing Organization Address City/State/ZIP Code Phon e Number [address] [address] [facility] BI Breast Screening Bilateral (07/13/2018 2:49 PM CHASER HELPER) Anatomical Region Laterality Modality Breast, Breast Imaging RST LOS, Breast Imaging [facility] LOS, [place] st Bilateral Mammography Imaging [facility] LOS Specimen (Source) Anatomical Collection Method Collection Time Re ceived Time Location / / Volume Laterality 07/13/2018 3:36 PM CHASER HELPER Impressions 07/13/2018 3:37 PM CHASER HELPER IMPRESSION: ??Negative. RECOMMENDATION: ??Annual Screening Mammo gram ASSESSMENT: ??BI-RADS: 1: Negative. Narrative 07/13/2018 3:37 PM CHASER HELPER EXAM: ??BI BREAST SCREENING BILATERAL Current study [...] Screening Mammogr am ASSESSMENT: BI-RADS: 1: Negative. Edward Luther P.A.-C. IMG PROCEDURES DC RMVL IMPACT CERUMEN IRRIG UNILAT, PROCEDURE PLACEHOLDER (07/10/2018 4:30 PM CHASER HELPER) Narrative [facility] - 07/10/2018 4:30 PM CHASER HELPER Arlyn Pereira, L.P.N. ? 07/11/2018 11:21 AM Ear cerumen removal Date/Time: 07/10/2018 5:25 PM Performed by: ARLYN PEREIRA Authorized by: EDWARD LUTHER Pre-procedural details: ??Indication: cerumen impaction ?? Procedure details: ??Location: ??Right ear and left ear ??Procedure type: irrigation ?Microscope used: no ?? Post-procedure details: ??Post-procedure ear inspection: Impact ion removal unsuccessful ??Procedure completed successfully: no ?Complications: no immediate complicat ions ?? Edward Luther P.A.-C. PROCEDURE/MINOR SURGICAL ORD ERABLES Performing Organization Address City/State/ZIP Code Phon e Number [facility] NA documented in this encounter Visit Diagnoses Diagnosis Well Adult Examination Normal - Primary Trisomy 21 (HCC) Screening Mammogram Average Risk Patient Cerumen Impacted Bilateral Pain Knee Right Screening Mammogram Average Risk Patient documented in this encounter Care Teams Strategic Advisor Relationship Specialty Start Date End Date Edward Luther P.A.-C. PCP - General Family Medicine 05/24/18 09/24/19 documented as of this encounter
--- OUTSIDE RECORDS SUMMARY | 2022-04-25 15:56 | XMS_ITS | Encounter Summary ---
:1975 Author Organization [facility] Address [address] [place] [address] Care Team Providers Name Role Phone Sirdhar Garibay M.D. Primary Care Provider Encounter Details Date Type Department Care Team Description 05/15/2018 Anticoagulation Visit Department of Marina Garibay Hypercoagulation Syndrome (HCC); Anticoagulation in [place] For Therapeutic Drug Therapy; Seth Car M.D. Senior Care Anticoagulant Treatment [facility] [address] [place] [address], [facility] [phone] Social History Tobacco Use Types Packs/Day Years Used Date Smoking Tobacco: Never Smokeless Tobacco: Never Sex Assigned at Date Recorded Not on file documented as of this encounter Progress Notes Mirella Chau R.N. - 05/15/2018 3:15 PM CST Warfarin Maintenance Nursing Protocol Goal Range 2.0-3.0 (version approved 02/24/17) Visit Type: Patient presents for Xrvx-sk-Mntf visit in Anticoagulation Service. Primary reason for [...] oftime since last INR (max 4-6 weeks): 14 days Pt on LMWH: No Patient Visit summary provided to: Patient provided with handout of warfarin dosing and next INR appointment. patient and mother repeats back dosing instructions and has no further questions at this time. and patient and mother repeats back dosing instructions and has no further questions at this time. Patient is agreeable to the plan of care yes CTOR OF FINANCIAL PLANNING documented in this encounter Plan of Treatment Not on filedocumented as of this encounter Procedures Procedure Name Priority Date/Time Associated Diagnosis Comme nts INR, POCT, B Routine 05/15/2018 3:23 PM Results f or this DIRECTOR OF FINANCIAL PLANNING procedure are i n the results section . documented in this encounter Results INR, POCT (05/15/2018 3:23 PM DIRECTOR OF FINANCIAL PLANNING) P athologist Signature INR, POCT, B 2.0 05/15/2018 [facility] 3:23 PM DIRECTOR OF FINANCIAL PLANNING [facility] Comment: ----ADDITIONAL INFORMATION---- Standard intensity warfarin therapeutic range: 2.0 to 3.0 ?? High intensity warfarin therapeutic rang e: 2.5 to 3.5 Specimen Anatomical Collection Method Collection Time Receive d Time (Source) Location / / Volume Laterality 05/15/2018 3:23 PM 8 3:24 DIRECTOR OF FINANCIAL PLANNING PM DIRECTOR OF FINANCIAL PLANNING Generic [facility] POCT ORDERABLES - DEVICE Performing Organization Address City/State/ZIP Code Phon e Number [facility]- [address] [place] [address] [facility] documented in this encounter Visit Diagnoses Diagnosis Primary Hypercoagulation Syndrome (HCC) Monitoring For Therapeutic Drug Therapy Senior Care (Current) Anticoagulant Treatm ent documented in this encounter Care Teams Plan Coordinator Relationship Specialty Start Date End Date Sridhar Garibay M.D. PCP - General 12/08/16 05/23/18 Morena Womack [facility] EFRAÍN Barraza [phone] documented as of this encounter
--- OUTSIDE RECORDS SUMMARY | 2022-04-25 15:56 | XMS_ITS | Encounter Summary ---
:1975 Author Organization [facility] Address [address] [place] [address] Care Team Providers Name Role Phone Jacki Luther P.A.-C. Primary Care Provider Reason for Visit Reason Comments Med Refill Encounter Details Date Type Department Care Team Description 06/27/2018 Refill Department of Dermatology in Jus [place] M.D. Med Refill [facility] potato grader [address] [place] [phone] [place], [place] [address] [phone] Social History Tobacco Use Types Packs/Day Years Used Date Smoking Tobacco: Never Smokeless Tobacco: Never Sex Assigned at Date Recorded Not on file documented as of this encounter Plan of Treatment Not on filedocumented as of this encounter Visit Diagnoses Not on filedocumented in this encounter Care Teams Audit Specialist Relationship Specialty Start Date End Date Jacki Luther P.A.-C. PCP - General Family Medicine 05/24/18 09/24/19 documented as of this encounter
--- OUTSIDE RECORDS SUMMARY | 2022-04-25 15:57 | XMS_ITS | Encounter Summary ---
:1975 Author Organization [facility] Address [address] [place] [address] Care Team Providers Name Role Phone Sridhar Garibay M.D. Primary Care Provider Encounter Details Date Type Department Care Team Description 12/12/2017 Anticoagulation Visit Department of Marina Garibay Hypercoagulation Syndrome (HCC); Anticoagulation in [place] For Therapeutic Drug Therapy; Seth Car M.D. Senior Care Anticoagulant Treatment [facility] [address] [place] [address], [facility] [phone] Social History Tobacco Use Types Packs/Day Years Used Date Smoking Tobacco: Never Sex Assigned at Date Recorded Not on file documented as of this encounter Progress Notes Nichole Bowers RViktor - 12/12/2017 3:30 PM CDT Warfarin Maintenance Nursing Protocol Goal Range 2.0-3.0 (version approved 02/24/17) Visit Type: Patient presents for Elfp-gt-Ngcw visit in Anticoagulation Service. Primary reason for visit: Routine f/u OR f/u per previous visit recommendations Information provided by: patient Inclusion Criteria: All inclusion criteria met. Proceeded to exclusion criteria. Exclusion Criteria: No exclusion criteria, proceeded to screening criteria. Screening Criteria: All screening criteria negative. Proceeded to maintenance warfarin dosing and follow-up Additional info: None Previous INR was subtherapeutic. Today???s INR is Subtherapeutic, Causes: Unknown. Dosing and follow up recommendation: INR 1.8-1.9 Consecutive INR in this range: Increased weekly dose by 5%. Bridging: no Next INR: 7 days per Screening Criteria because prompts INR recheck sooner thanindicated by maintenance warfarin dosing and follow-up table. Pt on LMWH: No Patient Visit summary provided to: Patient provided with handout of warfarin dosing and next INR appointment. patient repeats back dosing instructions and has no further questions at this time. documented in this encounter Plan of Treatment Not on filedocumented as of this encounter Procedures Procedure Name Priority Date/Time Associated Diagnosis Comme nts INR, POCT, B Routine 12/12/2017 3:43 PM Results f or this CDT procedure are i n the results section . documented in this encounter Results INR, POCT (12/12/2017 3:43 PM CDT) P athologist Signature INR, POCT, B 1.8 12/12/2017 [facility] 3:43 PM CDT [facility] Comment: ----ADDITIONAL INFORMATION---- Standard intensity warfarin therapeutic range: 2.0 to 3.0 ?? High intensity warfarin therapeutic rang e: 2.5 to 3.5 Specimen Anatomical Collection Method Collection Time Receive d Time (Source) Location / / Volume Laterality 12/12/2017 3:43 PM 8 3:45 CDT PM CDT Generic [facility] POCT ORDERABLES - DEVICE Performing Organization Address City/State/ZIP Code Phon e Number [facility]- [address] [place] [id number] [facility] documented in this encounter Visit Diagnoses Diagnosis Primary Hypercoagulation Syndrome (HCC) Monitoring For Therapeutic Drug Therapy Cut In Station Operator (Current) Anticoagulant Treatm ent documented in this encounter Care Teams Waiter/Waitress Club Relationship Specialty Start Date End Date Sridhar Garibay M.D. PCP - General 12/08/16 05/23/18 Morena Womack [facility] EFRAÍN Barraza [phone] documented as of this encounter
--- OUTSIDE RECORDS SUMMARY | 2022-04-25 15:57 | XMS_ITS | Encounter Summary ---
:1975 Author Organization [facility] Address [address] [place] [address] Care Team Providers Name Role Phone Sridhar Garibay M.D. Primary Care Provider Encounter Details Date Type Department Care Team Description 04/23/2018 Ancillary Procedure Department of Dermatology Social History Tobacco Use Types Packs/Day Years Used Date Smoking Tobacco: Never Smokeless Tobacco: Never Sex Assigned at Date Recorded Not on file documented as of this encounter Plan of Treatment Not on filedocumented as of this encounter Procedures Procedure Name Priority Date/Time Associated Comments Diagnosis DERMATOLOGY IMAGE Routine 04/23/2018 3:37 PM Resu lts for this EXAM CDT procedure are i n the results section. documented in this encounter Results DERMATOLOGY IMAGE EXAM (04/23/2018 3:37 PM CDT) Specimen (Source) Anatomical Collection Method Collection Time Re ceived Time Location / / Volume Laterality 04/23/2018 3:35 PM CDT Narrative [facility] - 04/23/2018 3:37 PM CDT This order has been created and auto-finalized [...] on filedocumented in this encounter Care Teams Acquisition Consultant Relationship Specialty Start Date End Date Sridhar Garibay M.D. PCP - General 12/08/16 05/23/18 [address] [place] [phone] documented as of this encounter
--- OUTSIDE RECORDS SUMMARY | 2022-04-25 15:57 | XMS_ITS | Encounter Summary ---
:1975 Author Organization [facility] Address [address] [place] [address] Care Team Providers Name Role Phone Sridhar Garibay M.D. Primary Care Provider Encounter Details Date Type Department Care Team Description 04/24/2018 Anticoagulation Visit Department of Marina Garibay Hypercoagulation Syndrome (HCC); Anticoagulation in [place] For Therapeutic Drug Therapy; Seth Car M.D. Heart Coordinator Anticoagulant Treatment [facility] [address] [place] [address], [facility] [phone] Social History Tobacco Use Types Packs/Day Years Used Date Smoking Tobacco: Never Smokeless Tobacco: Never Sex Assigned at Date Recorded Not on file documented as of this encounter Progress Notes Nichole Bowers RViktor - 04/24/2018 3:00 PM CDT Warfarin Maintenance Nursing Protocol Goal Range 2.0-3.0 (version approved 02/24/17) Visit Type: Patient presents for Ktbl-fc-Hfug visit in Anticoagulation Service. Primary reason for [...] was therapeutic. Today???s INR is Subtherapeutic, Causes: downward trend, unstable INR. . Dosing and follow up recommendation: INR of 1.7. Start 1.5mg MF and 3 mg all other days (9% increase) Pt on LMWH: No Patient Visit summary provided to: Patient provided with handout of warfarin dosing and next INR appointment. patient repeats back dosing instructions and has no further questions at this time. Patient is agreeable to the plan of care yes. documented in this encounter Plan of Treatment Not on filedocumented as of this encounter Procedures Procedure Name Priority Date/Time Associated Diagnosis Comme nts INR, POCT, B Routine 04/24/2018 3:05 PM Results f or this CDT procedure are i n the results section . documented in this encounter Results INR, POCT (04/24/2018 3:05 PM CDT) P athologist Signature INR, POCT, B 1.7 04/24/2018 [facility] 3:05 PM CDT [facility] Comment: ----ADDITIONAL INFORMATION---- Standard intensity warfarin therapeutic range: 2.0 to 3.0 ?? High intensity warfarin therapeutic rang e: 2.5 to 3.5 Specimen Anatomical Collection Method Collection Time Receive d Time (Source) Location / / Volume Laterality 04/24/2018 3:05 PM 8 3:06 CDT PM CDT Generic [facility] POCT ORDERABLES - DEVICE Performing Organization Address City/State/ZIP Code Phon e Number [facility]- [id number] [place] [address] [facility] documented in this encounter Visit Diagnoses Diagnosis Primary Hypercoagulation Syndrome (HCC) Monitoring For Therapeutic Drug Therapy Heart Coordinator (Current) Anticoagulant Treatm ent documented in this encounter Care Teams Synchronizer Relationship Specialty Start Date End Date Sridhar Garibay M.D. PCP - General 12/08/16 05/23/18 [address] [facility] [place] [phone] documented as of this encounter
--- OUTSIDE RECORDS SUMMARY | 2022-04-25 15:57 | XMS_ITS | Encounter Summary ---
:1975 Author Organization [facility] Address [address] [place] [address] Care Team Providers Name Role Phone Sridhar Garibay M.D. Primary Care Provider Reason for Referral Outpatient (Routine) - Closed Specialty Diagnoses / Procedures Referred By Contact Refer red To Contact Dermatology Jus Foley M.D . [facility] [address] [place] [address] Referral ID Status Reason Start Date Expiration Date Visits Requ ested Visits Authorized [id number] Closed 04/23/2018 04/23/2019 1 1 Scheduling Instructions Please schedule recheck psoriasis for June 05 at 3:30 p.m. Reason for Visit Reason Comments Psoriasis Appointment Request (Routine) - Closed Specialty Diagnoses / Procedures Referred By Contact Refer red To Contact Family Medicine Referral ID Status Reason Start Date Expiration Date Visits Requ ested Visits Authorized [id number] Closed 01/15/2018 01/15/2019 1 1 Encounter Details Date Type Department Care Team Description 04/23/2018 Office Visit Department of Jus Foley, Psoriasis (Primary Dx) Dermatology in [place], [place] [address] [place] [phone] Social History Tobacco Use Types Packs/Day Years Used Date Smoking Tobacco: Never Smokeless Tobacco: Never Sex Assigned at Date Recorded Not on file documented as of this encounter Consult Notes Jus Foley M.D. - 04/23/2018 2:30 PM CDT CHIEF COMPLAINT Psoriasis HISTORY OF THE PRESENT ILLNESS Hue Medina is a pleasant 43 y.o. [employer] worker who has Down syndrome but lives independently. She is accompanied by mother and she is being seen by me for the first time today for evaluation of psoriasis. The patient initially experienced psoriasis eruptions at the age of 12. She was treating the psoriasis with cwvj-bei-fgbkzxv Oxipor 5% coal-tar lotion and symptoms were controlled with use. Recently, the Oxipor lotion was discontinued per the pharmacy. Since the patient has discontinued use of the Oxipor lotion, the patient has experienced increased psoriasis eruptions to the legs, arms, trunk, buttocks and scalp. She reports some associated itchiness to involved areas intermittently. As an alternative treatment, the patient has been using T-gel shampoo tothe scalp every other day; however, she has not experienced improvement of symptoms. She has arthritis to the joints but has been given no indication the arthritis is related to her psoriasis. The patient's sister has arthritis and the patient's aunt has psoriatic arthritis. The patient has a history of Down's syndrome and lives independently. 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 PAST MEDICAL HISTORY Psoriasis, Down's syndrome, heart surgery and DVT FAMILY HISTORY Aunt has history for psoriatic arthritis PHYSICAL EXAM General: Awake, alert, in no acute distress, and with appropriate affect. Skin: Examination of the of the scalp reveals few small psoriasiform patches. Examination of the elbows and arms, and right dorsal hand reveals thick psoriasiform plaques. Examination of the abdomen reveals a small focal psoriasiform patch. Examination of the legs reveals scattered psoriasiform plaques to the lower legs and thigh, but suprisingly less involving the knees. Examination of the buttocks and posterior thighs reveals large, thick psoriasiform plaques. No pustules, vesicles, or blisters. IMPRESSION AND PLAN #1 Legs, arms, buttocks and trunk: Psoriasis The patient has widespread psoriasis with thicker plaques involving the buttock and arms on clinicalexamination today. I discussed options of treatment, including phototherapy, topical steroids, TNF inhibitors, Dovonex, and Otezla. The risks and benefits of each individual treatment were discussed fully with the patient and the patient's mother and they understand. As I do not feel topical steroids will be sufficient treatment for the thick psoriasiform plaques, I recommended narrow band UVB phototherapy which would include three weekly visits to [facility]. The patient and mother are interested in narrowband UVB therapy treatment beginning on 06/12/18 after the patient's bowling season has ended. I recommended Dovonex ointment twice daily to thicker plaques involving the buttock and arms for Mondays through . Additionally, I recommended Mometasone ointment sparingly used once daily to thick plaques involving buttock and arms Fridays through Sundays. We will use the thicker plaques as target lesions to see how she response prior to the phototherapy after bowling season ends. The patient's follow-up appointment with me is scheduled for 06/05/18. During this visit, we will recheckthe psoriasiform plaques on the treatment regimen described above and decided whether or not to continue with plan of UVB therapy scheduled for 06/12/18. PATIENT EDUCATION Ready to learn. No apparent learning barriers were identified. Learning preferences include listening. Explained diagnosis and treatment plan; patient/guardian of patient expressed understanding of thecontent. By signing my name below, I, Betito [place], attest that this documentation has been prepared under the direction and in the presence of Jus Foley M.D.. Electronically Signed: simeon [place]. 04/23/2018. 3:12 PM . Jus Cha M.D., personally performed the services described in this documentation. All medical record entries made by the scribe were at my direction and in my presence. I have reviewed the chart and discharge instructions (if applicable) and agree that the record reflects my personal performance and is accurate and complete. Jus Foley M.D. . 04/23/2018. 5:07 PM. documented in this encounter Plan of Treatment Scheduled Referrals Name Type Priority Associated Order Schedule Diagnoses Dermatology office Outpatient Referral Routine Ex pected: visit (clinic) 06/05/2018 (Approximate), Expires: 04/23/2021 documented as of this encounter Visit Diagnoses Diagnosis Psoriasis - Primary documented in this encounter Care Teams Dietary Director Relationship Specialty Start Date End Date Sridhar Garibay M.D. PCP - General 12/08/16 05/23/18 [address] [place] [phone] documented as of this encounter
--- OUTSIDE RECORDS SUMMARY | 2022-04-25 15:57 | XMS_ITS | Encounter Summary ---
:[address] [facility] Address [address] [place] [address] Care Team Providers Name Role Phone Sridhar Garibay M.D. Primary Care Provider Encounter Details Date Type Department Care Team Description 04/06/2018 Anticoagulation Visit Department of Marina Garibay Hypercoagulation Syndrome (HCC); Anticoagulation in [place] For Therapeutic Drug Therapy; Seth Car M.D. Job Setter Honing Anticoagulant Treatment [facility] [address] [place] [address], [facility] [phone] (Work) Social History Tobacco Use Types Packs/Day Years Used Date Smoking Tobacco: Never Sex Assigned at Date Recorded Not on file documented as of this encounter Progress Notes Lili Manzo R.N. - 04/06/2018 3:00 PM CDT Warfarin Maintenance Nursing Protocol Goal Range 2.0-3.0 (version approved 02/24/17) Visit Type: Patient presents for Nrrl-vd-Ldly visit in Anticoagulation Service. Primary reason for visit: Routine f/u OR f/u per previous visit recommendations Information provided by: patient Inclusion Criteria: All inclusion criteria met. Proceeded to exclusion criteria. Exclusion Criteria: No exclusion criteria, proceeded to screening criteria. Screening Criteria: All screening criteria negative. Proceeded to maintenance warfarin dosing and follow-up Additional info: None Previous INR was supratherapeutic. Today???s INR is Therapeutic. Dosing and follow [...] Diagnosis Comme nts INR, POCT, B Routine 04/06/2018 3:12 PM Results f or this CDT procedure are i n the results section . documented in this encounter Results INR, POCT (04/06/2018 3:12 PM CDT) P athologist Signature INR, POCT, B 2.2 04/06/2018 [facility] 3:12 PM CDT [facility] Comment: ----ADDITIONAL INFORMATION---- Standard intensity warfarin therapeutic range: 2.0 to 3.0 ?? High intensity warfarin therapeutic rang e: 2.5 to 3.5 Specimen Anatomical Collection Method Collection Time Receive d Time (Source) Location / / Volume Laterality 04/06/2018 3:12 PM 8 3:14 CDT PM CDT Generic [facility] POCT ORDERABLES - DEVICE Performing Organization Address City/State/ZIP Code Phon e Number [facility]- [address] [place] [address] [facility] documented in this encounter Visit Diagnoses Diagnosis Primary Hypercoagulation Syndrome (HCC) Monitoring For Therapeutic Drug Therapy Custodial (Current) Anticoagulant Treatm ent documented in this encounter Care Teams Lithograph Designer Relationship Specialty Start Date End Date Sridhar Garibay M.D. PCP - General 12/08/16 05/23/18 [place] [phone] documented as of this encounter
--- OUTSIDE RECORDS SUMMARY | 2022-04-25 15:57 | XMS_ITS | Encounter Summary ---
:1975 Author Organization [facility] Address [address] [place] [address] Care Team Providers Name Role Phone Sridhar Garibay M.D. Primary Care Provider Encounter Details Date Type Department Care Team Description 04/06/2018 Anticoagulation Visit Department of Hari Garibay For Therapeutic Drug Therapy; Anticoagulation in S[place]har [place], Dimension Warehouse Supervisor Anticoagulant Treatment; Rosa Car M.D. Primary Hypercoagulation Syndrome (HCC) [address] [place], ROSA CAR [facility] [phone] Social History Tobacco Use Types Packs/Day Years Used Date Smoking Tobacco: Never Sex Assigned at Date Recorded Not on file documented as of this encounter Plan of Treatment Not on filedocumented as of this encounter Visit Diagnoses Diagnosis Monitoring For Therapeutic Drug Therapy [facility] (Current) Anticoagulant Treatm ent Primary Hypercoagulation Syndrome (HCC) documented in this encounter Care Teams Linux Server Engineer Relationship Specialty Start Date End Date Sridhar Garibay M.D. PCP - General 12/08/16 05/23/18 [address] [place] [phone] documented as of this encounter
--- OUTSIDE RECORDS SUMMARY | 2022-04-25 15:57 | XMS_ITS | Encounter Summary ---
:1975 Author Organization [facility] Address [address] [place] [address] Care Team Providers Name Role Phone Sridhar Garibay M.D. Primary Care Provider Encounter Details Date Type Department Care Team Description 12/07/2017 Orders Only Department of Family Sridhar Garibay rlipidemia (Primary Dx); Medicine, Yovanny Helton M.D. Screening Mammogram Average Risk Patient [facility], in [place], [address] [place], [place] [address] [facility] [address] [place], [place] [phone] (Work) [phone] Social History Tobacco Use Types Packs/Day Years Used Date Smoking Tobacco: Never Sex Assigned at Date Recorded Not on file documented as of this encounter Plan of Treatment Not on filedocumented as of this encounter Visit Diagnoses Diagnosis Hyperlipidemia - Primary Screening Mammogram Average Risk Patient documented in this encounter Care Teams Tool And Die Inspector Relationship Specialty Start Date End Date Sridhar Garibay M.D. PCP - General 12/08/16 05/23/18 [address] [place] [phone] documented as of this encounter
--- OUTSIDE RECORDS SUMMARY | 2022-04-25 15:57 | XMS_ITS | Encounter Summary ---
:1975 Author Organization [facility] Address [address] [place] [address] Care Team Providers Name Role Phone Sridhar Garibay M.D. Primary Care Provider Encounter Details Date Type Department Care Team Description 02/06/2018 Anticoagulation Visit Department of Marina Garibay Hypercoagulation Syndrome (HCC); Anticoagulation in [place] For Therapeutic Drug Therapy; Seth Car M.D. Alf Anticoagulant Treatment [facility] [address] [place] [address], [facility] [phone] (Work) Social History Tobacco Use Types Packs/Day Years Used Date Smoking Tobacco: Never Sex Assigned at Date Recorded Not on file documented as of this encounter Progress Notes Lili Manzo R.N. - 02/06/2018 3:30 PM CDT Warfarin Maintenance Nursing Protocol Goal Range 2.0-3.0 (version approved 02/24/17) Visit Type: Patient presents for Vnvg-ji-Ggfd visit in Anticoagulation Service. Primary reason for visit: Routine f/u OR f/u per previous visit recommendations Information provided by: patient and MomFabiola Inclusion Criteria: All inclusion criteria met. Proceeded to exclusion criteria. Exclusion Criteria: No exclusion criteria, proceeded to screening criteria. Screening Criteria: All screening criteria negative. Proceeded to maintenance warfarin dosing and follow-up Additional info: None Previous INR was therapeutic. Today???s INR is Supratherapeutic, Causes: Unknown. Dosing and follow up recommendation: INR 3.3-3.5 Decreased average daily dose by 50% x1 dose, then resume current dose until next INR check. . Next INR: 8-10 days Pt on LMWH: No Patient Visit summary provided to: Patient provided with handout of warfarin dosing and next INR appointment. patient and MomFabiola repeats back dosing instructions and has no further questions at this time. documented in this encounter Plan of Treatment Not on filedocumented as of this encounter Procedures Procedure Name Priority Date/Time Associated Diagnosis Comme nts INR, POCT, B Routine 02/06/2018 3:37 PM Results f or this CDT procedure are i n the results section . documented in this encounter Results INR, POCT (02/06/2018 3:37 PM CDT) P athologist Signature INR, POCT, B 3.3 02/06/2018 [facility] 3:37 PM CDT [facility] Comment: ----ADDITIONAL INFORMATION---- Standard intensity warfarin therapeutic range: 2.0 to 3.0 ?? High intensity warfarin therapeutic rang e: 2.5 to 3.5 Specimen Anatomical Collection Method Collection Time Receive d Time (Source) Location / / Volume Laterality 02/06/2018 3:37 PM 8 3:39 CDT PM CDT Generic [facility] POCT ORDERABLES - DEVICE Performing Organization Address City/State/ZIP Code Phon e Number [facility]- [address] [place] [phone] [facility] documented in this encounter Visit Diagnoses Diagnosis Primary Hypercoagulation Syndrome (HCC) Monitoring For Therapeutic Drug Therapy Alf (Current) Anticoagulant Treatm ent documented in this encounter Care Teams Hematologist Oncologist Relationship Specialty Start Date End Date Sridhar Garibay M.D. PCP - General 12/08/16 05/23/18 [place] [phone] documented as of this encounter
--- OUTSIDE RECORDS SUMMARY | 2022-04-25 15:57 | XMS_ITS | Encounter Summary ---
:1975 Author Organization [facility] Address [address] [place] [address] Care Team Providers Name Role Phone Sridhar Garibay M.D. Primary Care Provider Encounter Details Date Type Department Care Team Description 05/08/2018 Anticoagulation Visit Department of Marina Garibay Hypercoagulation Syndrome (HCC); Anticoagulation in [place] For Therapeutic Drug Therapy; Seth Car M.D. Chcf Anticoagulant Treatment [facility] [address] [place] [address], [facility] [phone] Social History Tobacco Use Types Packs/Day Years Used Date Smoking Tobacco: Never Smokeless Tobacco: Never Sex Assigned at Date Recorded Not on file documented as of this encounter Progress Notes Nichole Bowers RViktor - 05/08/2018 3:00 PM CST Warfarin Maintenance Nursing Protocol Goal Range 2.0-3.0 (version approved 02/24/17) Visit Type: Patient presents for Bxjm-yg-Ajpj visit in Anticoagulation Service. Primary reason for visit: Routine f/u OR f/u per previous visit recommendations Information provided by: patient Inclusion Criteria: All inclusion criteria met. Proceeded to exclusion criteria. Exclusion Criteria: No exclusion criteria, proceeded to screening criteria. Screening Criteria: All screening criteria negative. Proceeded to maintenance warfarin dosing and follow-up Additional info: Pt denies changes, says she's been drinking a lot of flavored water. Previous INR was subtherapeutic. Today???s INR is Subtherapeutic, Causes: unknown. . Dosing and follow up recommendation: INR of 1.9, Take 3mg daily except for 1.5mg Mon for now, recheck in 1 week. Pt on LMWH: No Patient Visit summary provided to: Patient provided with handout of warfarin dosing and next INR appointment. patient and mother Fabiola repeats back dosing instructions and has no further questions at this time. Patient is agreeable to the plan of care yes ING SPECIALIST documented in this encounter Plan of Treatment Not on filedocumented as of this encounter Procedures Procedure Name Priority Date/Time Associated Diagnosis Comme nts INR, POCT, B Routine 05/08/2018 3:11 PM Results f or this LOGGING SPECIALIST procedure are i n the results section . documented in this encounter Results INR, POCT (05/08/2018 3:11 PM LOGGING SPECIALIST) P athologist Signature INR, POCT, B 1.9 05/08/2018 [facility] 3:11 PM LOGGING SPECIALIST [facility] Comment: ----ADDITIONAL INFORMATION---- Standard intensity warfarin therapeutic range: 2.0 to 3.0 ?? High intensity warfarin therapeutic rang e: 2.5 to 3.5 Specimen Anatomical Collection Method Collection Time Receive d Time (Source) Location / / Volume Laterality 05/08/2018 3:11 PM 8 3:13 LOGGING SPECIALIST PM LOGGING SPECIALIST Generic [facility] POCT ORDERABLES - DEVICE Performing Organization Address City/State/ZIP Code Phon e Number [facility]- [id number] [address] [place] documented in this encounter Visit Diagnoses Diagnosis Primary Hypercoagulation Syndrome (HCC) Monitoring For Therapeutic Drug Therapy Care Technician (Current) Anticoagulant Treatm ent documented in this encounter Care Teams Setter Molding And Coremaking Machines Relationship Specialty Start Date End Date Sridhar Garibay M.D. PCP - General 12/08/16 05/23/[email or web address] [facility] [place] [phone] documented as of this encounter
--- OUTSIDE RECORDS SUMMARY | 2022-04-25 15:57 | XMS_ITS | Encounter Summary ---
:1975 Author Organization [facility] Address [address] [place] [address] Care Team Providers Name Role Phone Sridhar Garibay M.D. Primary Care Provider Encounter Details Date Type Department Care Team Description 03/23/2018 Anticoagulation Visit Department of Marina Garibay Hypercoagulation Syndrome (HCC); Anticoagulation in [place] For Therapeutic Drug Therapy; Seth Car M.D. Director Treasurer Anticoagulant Treatment [facility] [address] [place] [address], [facility] [phone] Social History Tobacco Use Types Packs/Day Years Used Date Smoking Tobacco: Never Sex Assigned at Date Recorded Not on file documented as of this encounter Progress Notes Lili Manzo R.N. - 03/23/2018 2:45 PM CDT Warfarin Maintenance Nursing Protocol Goal Range 2.0-3.0 (version approved 02/24/17) Visit Type: Patient presents for Zzii-xw-Quhu visit in Anticoagulation Service. Primary reason for visit: Routine f/u OR f/u per previous visit recommendations Information provided by: patient Inclusion Criteria: All inclusion criteria met. Proceeded to exclusion criteria. Exclusion Criteria: No exclusion criteria, proceeded to screening criteria. Screening Criteria: All screening criteria negative. Proceeded to maintenance warfarin dosing and follow-up Additional info: None Previous INR was supratherapeutic. Today???s INR is Supratherapeutic, Causes: Unknown. Dosing and follow up recommendation: INR 3.1-3.2 Danay Blanton consulted. Dose: Dose ordered: See calendar, change Weds to 1.5mg instead of 3mg.. Next INR: 2-4 weeks Pt on LMWH: No Patient Visit summary provided to: Patient provided with handout of warfarin dosing and next INR appointment. patient and caregiver repeats back dosing instructions and has no further questions at thistime. documented in this encounter Plan of Treatment Not on filedocumented as of this encounter Procedures Procedure Name Priority Date/Time Associated Diagnosis Comme nts INR, POCT, B Routine 03/23/2018 2:56 PM Results f or this CDT procedure are i n the results section . documented in this encounter Results INR, POCT (03/23/2018 2:56 PM CDT) P athologist Signature INR, POCT, B 3.2 03/23/2018 [facility] 2:56 PM CDT [facility] Comment: ----ADDITIONAL INFORMATION---- Standard intensity warfarin therapeutic range: 2.0 to 3.0 ?? High intensity warfarin therapeutic rang e: 2.5 to 3.5 Specimen Anatomical Collection Method Collection Time Receive d Time (Source) Location / / Volume Laterality 03/23/2018 2:56 PM 8 2:58 CDT PM CDT Generic [facility] POCT ORDERABLES - DEVICE Performing Organization Address City/State/ZIP Code Phon e Number [facility]- [id number] [place] [address] [facility] documented in this encounter Visit Diagnoses Diagnosis Primary Hypercoagulation Syndrome (HCC) Monitoring For Therapeutic Drug Therapy Director Treasurer (Current) Anticoagulant Treatm ent documented in this encounter Care Teams Crystal Machining Coordinator Relationship Specialty Start Date End Date Sridhar Garibay M.D. PCP - General 12/08/16 05/23/18 Morena Womack [facility] [place] [phone] documented as of this encounter
--- OUTSIDE RECORDS SUMMARY | 2022-04-25 15:57 | XMS_ITS | Encounter Summary ---
:1975 Author Organization [facility] Address [address] [place] [address] Care Team Providers Name Role Phone Sridhar Garibay M.D. Primary Care Provider Encounter Details Date Type Department Care Team Description 02/27/2018 Anticoagulation Visit Department of Marina Garibay Hypercoagulation Syndrome (HCC); Anticoagulation in [place] For Therapeutic Drug Therapy; Seth Car M.D. Half-Way Anticoagulant Treatment [facility] [address] [place] [address], [facility] [phone] Social History Tobacco Use Types Packs/Day Years Used Date Smoking Tobacco: Never Sex Assigned at Date Recorded Not on file documented as of this encounter Progress Notes Nichole Bowers RViktor - 02/27/2018 3:30 PM CDT Warfarin Maintenance Nursing Protocol Goal Range 2.0-3.0 (version approved 02/24/17) Visit Type: Patient presents for Xelf-lc-Lrsh visit in Anticoagulation Service. Primary reason for visit: Routine f/u OR f/u per previous visit recommendations Information provided by: patient Inclusion Criteria: All inclusion criteria met. Proceeded to exclusion criteria. Exclusion Criteria: No exclusion criteria, proceeded to screening criteria. Screening Criteria: All screening criteria negative. Proceeded to maintenance warfarin dosing and follow-up Additional info: NA Previous INR was supratherapeutic. Today???s INR is Supratherapeutic, Causes: Unknown. Dosing and follow up recommendation: INR 2.0-3.0 new rx of 3mg tabs, 1 tab daily 7% reduction. Will provide a more stable dosing as well. Next INR: 13 days per Screening Criteria because prompts INR recheck sooner than indicated by maintenance warfarin dosing and follow-up table. Pt on LMWH: No Patient Visit summary provided to: Patient provided with handout of warfarin dosing and next INR appointment. patient repeats back dosing instructions and has no further questions at this time. documented in this encounter Miscellaneous Notes Addendum Note - Nichole Bowers R.N. - 02/27/2018 3:30 PM CDT Addended by: NICHOLE BOWERS on: 02/27/2018 03:51 PM Modules accepted: Level of Service documented in this encounter Plan of Treatment Not on filedocumented as of this encounter Procedures Procedure Name Priority Date/Time Associated Diagnosis Comme nts INR, POCT, B Routine 02/27/2018 3:30 PM Results f or this CDT procedure are i n the results section . documented in this encounter Results INR, POCT (02/27/2018 3:30 PM CDT) P athologist Signature INR, POCT, B 3.7 02/27/2018 [facility] 3:30 PM CDT [facility] Comment: ----ADDITIONAL INFORMATION---- Standard intensity warfarin therapeutic range: 2.0 to 3.0 ?? High intensity warfarin therapeutic rang e: 2.5 to 3.5 Specimen Anatomical Collection Method Collection Time Receive d Time (Source) Location / / Volume Laterality 02/27/2018 3:30 PM 8 3:31 CDT PM CDT Generic [facility] POCT ORDERABLES - DEVICE Performing Organization Address City/State/ZIP Code Phon e Number [facility]- [id number] [place] [phone] [facility] documented in this encounter Visit Diagnoses Diagnosis Primary Hypercoagulation Syndrome (HCC) Monitoring For Therapeutic Drug Therapy Lawn Technician (Current) Anticoagulant Treatm ent documented in this encounter Care Teams Respiratory Therapy Assistant Relationship Specialty Start Date End Date Sridhar Garibay M.D. PCP - General 12/08/16 05/23/18 [address] [place] [phone] documented as of this encounter
--- OUTSIDE RECORDS SUMMARY | 2022-04-25 15:57 | XMS_ITS | Encounter Summary ---
:1975 Author Organization [facility] Address [address] [place] [address] Care Team Providers Name Role Phone Sridhar [...] Associated Comments Diagnosis DERMATOLOGY IMAGE Routine 04/23/2018 3:35 PM Resu lts for this EXAM CDT procedure are i n the results section. documented in this encounter Results DERMATOLOGY IMAGE EXAM (04/23/2018 3:35 PM CDT) Specimen (Source) Anatomical Collection Method Collection Time Re ceived Time Location / / Volume Laterality 04/23/2018 3:35 PM CDT Narrative [facility] - 04/23/2018 3:36 PM CDT This order has been created [...] in this encounter Care Teams Office Support Specialist Relationship Specialty Start Date End Date Sridhar Garibay M.D. PCP - General 12/08/16 05/23/18 [address] [place] [phone] documented as of this encounter
--- OUTSIDE RECORDS SUMMARY | 2022-04-25 15:57 | XMS_ITS | Encounter Summary ---
:1975 Author Organization [facility] Address [address] [place] [address] Care Team Providers Name Role Phone rSidhar Garibay M.D. Primary Care Provider Encounter Details Date Type Department Care Team Description 01/08/2018 Anticoagulation Visit Department of Marina Garibay Hypercoagulation Syndrome (HCC); Anticoagulation in [place] For Therapeutic Drug Therapy; Seth Car M.D. Chcf Anticoagulant Treatment [facility] [address] [place] [address], [facility] [phone] Social History Tobacco Use Types Packs/Day Years Used Date Smoking Tobacco: Never Sex Assigned at Date Recorded Not on file documented as of this encounter Progress Notes Nichole Bowers R.N. - 01/08/2018 3:45 PM CDT Warfarin Maintenance Nursing Protocol Goal Range 2.0-3.0 (version approved 02/24/17) Visit Type: Patient presents for Dbbw-fb-Wcir visit in Anticoagulation Service. Primary reason for visit: Routine f/u OR f/u per previous visit recommendations Information provided by: patient Inclusion Criteria: All inclusion criteria met. Proceeded to exclusion criteria. Exclusion Criteria: No exclusion criteria, proceeded to screening criteria. Screening Criteria: All screening criteria negative. Proceeded to maintenance warfarin dosing and follow-up Additional info: Pt INR may be trending up, however Is due for lesser dose today. will keep same dosing for now. Her parents on going on a cruise for 2 weeks 01/22-02/05. They provider transportation. Previous INR was therapeutic. Today???s INR is [...] Diagnosis Comme nts INR, POCT, B Routine 01/08/2018 3:47 PM Results f or this CDT procedure are i n the results section . documented in this encounter Results INR, POCT (01/08/2018 3:47 PM CDT) P athologist Signature INR, POCT, B 3.0 01/08/2018 [facility] 3:47 PM CDT [facility] [place] [facility] Comment: ----ADDITIONAL INFORMATION---- Standard intensity warfarin therapeutic range: 2.0 to 3.0 ?? High intensity warfarin therapeutic rang e: 2.5 to 3.5 Specimen Anatomical Collection Method Collection Time Receive d Time (Source) Location / / Volume Laterality 01/08/2018 3:47 PM 8 3:49 CDT PM CDT Generic [facility] POCT ORDERABLES - DEVICE Performing Organization Address City/State/ZIP Code Phon e Number [facility]- [address] [address] [place] [facility] documented in this encounter Visit Diagnoses Diagnosis Primary Hypercoagulation Syndrome (HCC) Monitoring For Therapeutic Drug Therapy Payroll Processor (Current) Anticoagulant Treatm ent documented in this encounter Care Teams Commanding Officer Garage Relationship Specialty Start Date End Date Sridhar Garibay M.D. PCP - General 12/08/16 05/23/18 [email or web address] Vu [facility] [place] [phone] documented as of this encounter
--- OUTSIDE RECORDS SUMMARY | 2022-04-25 15:57 | XMS_ITS | Encounter Summary ---
:1975 Author Organization [facility] Address [address] [place] [address] Care Team Providers Name Role Phone Sridhar Garibay M.D. Primary Care Provider Encounter Details Date Type Department Care Team Description 05/02/2018 Anticoagulation Visit Department of Marina Garibay Hypercoagulation Syndrome (HCC); Anticoagulation in [place] For Therapeutic Drug Therapy; Seth Car M.D. Trim Die Maker Anticoagulant Treatment [facility] [address] [place] [address], [facility] [phone] Social History Tobacco Use Types Packs/Day Years Used Date Smoking Tobacco: Never Smokeless Tobacco: Never Sex Assigned at Date Recorded Not on file documented as of this encounter Progress Notes Lili Manzo R.N. - 05/02/2018 3:15 PM CST Warfarin Maintenance Nursing Protocol Goal Range 2.0-3.0 (version approved 02/24/17) Visit Type: Patient presents for Unkq-pe-Wokp visit in Anticoagulation Service. Primary reason for [...] Therapeutic. Dosing and follow up recommendation: INR 1.5-1.7 Consecutive INR below goal colleen, increase weekly dose by 10% (weekly increase includes previous 50% adjustment),. Next INR: 3-5 days Pt on LMWH: No Patient Visit summary provided to: Patient provided with handout of warfarin dosing and next INR appointment. patient and Mother repeats back dosing instructions and has no further questions at this time. Patient is agreeable to the plan of care yes NDANT ARCADE documented in this encounter Plan of Treatment Not on filedocumented as of this encounter Procedures Procedure Name Priority Date/Time Associated Diagnosis Comme nts INR, POCT, B Routine 05/02/2018 3:16 PM Results f or this ATTENDANT ARCADE procedure are i n the results section . documented in this encounter Results INR, POCT (05/02/2018 3:16 PM ATTENDANT ARCADE) P athologist Signature INR, POCT, B 1.7 05/02/2018 [facility] 3:16 PM ATTENDANT ARCADE [facility] Comment: ----ADDITIONAL INFORMATION---- Standard intensity warfarin therapeutic range: 2.0 to 3.0 ?? High intensity warfarin therapeutic rang e: 2.5 to 3.5 Specimen Anatomical Collection Method Collection Time Receive d Time (Source) Location / / Volume Laterality 05/02/2018 3:16 PM 8 3:19 ATTENDANT ARCADE PM ATTENDANT ARCADE Generic [facility] POCT ORDERABLES - DEVICE Performing Organization Address City/State/ZIP Code Phon e Number [facility]- [address] [place] [address] [facility] documented in this encounter Visit Diagnoses Diagnosis Primary Hypercoagulation Syndrome (HCC) Monitoring For Therapeutic Drug Therapy Trim Die Maker (Current) Anticoagulant Treatm ent documented in this encounter Care Teams Silk Presser Relationship Specialty Start Date End Date Sridhar Garibay M.D. PCP - General 12/08/16 05/23/18 [place] [phone] documented as of this encounter
--- OUTSIDE RECORDS SUMMARY | 2022-04-25 15:57 | XMS_ITS | Encounter Summary ---
:1975 Author Organization [facility] Address [address] [place] [address] Care Team Providers Name Role Phone Sridhar Garibay M.D. Primary Care Provider Encounter Details Date Type Department Care Team Description 12/19/2017 Anticoagulation Visit Department of Marina Garibay Hypercoagulation Syndrome (HCC); Anticoagulation in [place] For Therapeutic Drug Therapy; Seth Car M.D. Jail Anticoagulant Treatment [facility] [address] [place] [address], [facility] [phone] Social History Tobacco Use Types Packs/Day Years Used Date Smoking Tobacco: Never Sex Assigned at Date Recorded Not on file documented as of this encounter Progress Notes Nichole Bowers RViktor - 12/19/2017 3:30 PM CDT Warfarin Maintenance Nursing Protocol Goal Range 2.0-3.0 (version approved 02/24/17) Visit Type: Patient presents for Mdsf-eo-Ouas visit in Anticoagulation Service. Primary reason for visit: Routine f/u OR f/u per previous visit recommendations Information provided by: patient Inclusion Criteria: All inclusion criteria met. Proceeded to exclusion criteria. Exclusion Criteria: No exclusion criteria, proceeded to screening criteria. Screening Criteria: All screening criteria negative. Proceeded to maintenance warfarin dosing and follow-up Additional info: Pt is going camping with family the week that patient should return. Previous INR was subtherapeutic. Today???s INR is Therapeutic. Dosing and follow up recommendation: INR 2.0-3.0 No change in weekly dose. Next INR: Patient declined recommended f/u. Risks of delay reviewed and patient accepts risks. Will return on 01/08 per patient. Pt on LMWH: No Patient Visit summary provided to: Patient provided with handout of warfarin dosing and next INR appointment. patient and pt's mother repeats back dosing instructions and has no further questions at this time. documented in this encounter Plan of Treatment Not on filedocumented as of this encounter Procedures Procedure Name Priority Date/Time Associated Diagnosis Comme nts INR, POCT, B Routine 12/19/2017 3:36 PM Results f or this CDT procedure are i n the results section . documented in this encounter Results INR, POCT (12/19/2017 3:36 PM CDT) P athologist Signature INR, POCT, B 2.4 12/19/2017 [facility] 3:36 PM CDT [facility] Comment: ----ADDITIONAL INFORMATION---- Standard intensity warfarin therapeutic range: 2.0 to 3.0 ?? High intensity warfarin therapeutic rang e: 2.5 to 3.5 Specimen Anatomical Collection Method Collection Time Receive d Time (Source) Location / / Volume Laterality 12/19/2017 3:36 PM 8 3:37 CDT PM CDT Generic [facility] POCT ORDERABLES - DEVICE Performing Organization Address City/State/ZIP Code Phon e Number [facility]- [address] [place] [phone] [facility] documented in this encounter Visit Diagnoses Diagnosis Primary Hypercoagulation Syndrome (HCC) Monitoring For Therapeutic Drug Therapy Flooring Grader (Current) Anticoagulant Treatm ent documented in this encounter Care Teams Return To Vendor Relationship Specialty Start Date End Date Sridhar Garibay M.D. PCP - General 12/08/16 05/23/18 Morena Womack [facility] [place] [phone] documented as of this encounter
--- OUTSIDE RECORDS SUMMARY | 2022-04-25 15:57 | XMS_ITS | Encounter Summary ---
:1975 Author Organization [facility] Address [address] [place] [address] Care Team Providers Name Role Phone Sridhar Garibay M.D. Primary Care Provider Reason for Referral Outpatient (Routine) - Closed Specialty Diagnoses / Procedures Referred By Referred To Contact Contact Hematology / Diagnoses Primary Hypercoagulation Syndrome (HCC) Monitoring For Therapeutic Drug Therapy Retirement (Current) Anticoagulant Treatment Sridhar Garibay M.D. [address] [place] [phone] Referral ID Status Reason Start Date Expiration Date Visits V isits Requested Authorized [id number] Closed Specialty 12/06/2017 12/06/2018 1 1 Services Required Encounter Details Date Type Department Care Team Description 12/05/2017 Anticoagulation Visit Department of Marina Garibay Hypercoagulation Syndrome (HCC); Anticoagulation in [place] For Therapeutic Drug Therapy; Seth Car M.D. Meat Stock Clerk Anticoagulant Treatment [place] [id number] [place] [phone] Social History Tobacco Use Types Packs/Day Years Used Date Smoking Tobacco: Never Sex Assigned at Date Recorded Not on file documented as of this encounter Progress Notes Nichole Bowers RViktor - 12/05/2017 3:45 PM CDT Warfarin Maintenance Nursing Protocol Goal Range 2.0-3.0 (version approved 02/24/17) Visit Type: Patient presents for Dmla-kf-Owcy visit in Anticoagulation Service. Primary reason for visit: Routine f/u OR f/u per previous visit recommendations Information provided by: patient and mother Inclusion Criteria: All inclusion criteria met. Proceeded to exclusion criteria. Exclusion Criteria: No exclusion criteria, proceeded to screening criteria. Screening Criteria: -Patient has had a change in adherence to prescribed warfarin dosing in last 3 days including: missed warfarin dose, extra warfarin dose, and/or inaccurate warfarin dose: Proceeded to maintenance warfarin dosing. Patient to return for follow-up INR in 7-10 days or sooner if indicated by protocol follow-up. Additional info: Pt took 2.5mg last night instead of prescribed 5mg. Previous INR was subtherapeutic. Today???s INR is Subtherapeutic, Causes: Missed/incorrect warfarin dose: took 2.5mg yesterday instead of 5mg and may require more warfarin/week. . Dosing and follow up recommendation: INR 1.5-1.7 Consecutive INR below goal colleen, increase weekly dose by 10% (weekly increase includes previous 50% adjustment),. Next INR: 7 days per Screening Criteria because prompts INR recheck sooner than indicated by maintenance warfarin dosing and follow-up table . Pt on LMWH: No Patient Visit summary provided to: Patient provided with handout of warfarin dosing and next INR appointment. patient and mother repeats back dosing instructions and has no further questions at this time. documented in this encounter Plan of Treatment Scheduled Referrals Name Type Priority Associated Diagnoses Order S chedule Anticoagulation Outpatient Routine Primary Ordered: monitoring consult Referral Hypercoagulation 12/06 (clinic) Syndrome (HCC) Monitoring For Therapeutic Drug Therapy Meat Stock Clerk Anticoagulant Treatment documented as of this encounter Procedures Procedure Name Priority Date/Time Associated Diagnosis Comme nts INR, POCT, B Routine 12/05/2017 3:36 PM Results f or this CDT procedure are i n the results section . documented in this encounter Results INR, POCT (12/05/2017 3:36 PM CDT) P athologist Signature INR, POCT, B 1.6 12/05/2017 [facility] 3:36 PM CDT [facility] Comment: ----ADDITIONAL INFORMATION---- Standard intensity warfarin therapeutic range: 2.0 to 3.0 ?? High intensity warfarin therapeutic rang e: 2.5 to 3.5 Specimen Anatomical Collection Method Collection Time Receive d Time (Source) Location / / Volume Laterality 12/05/2017 3:36 PM 8 3:42 CDT PM CDT [facility] POCT ORDERABLES - DEVICE Performing Organization Address City/State/[facility] Code Phon e Number [facility]- [address] [place] [address] [place] [address] [facility] documented in this encounter Visit Diagnoses Diagnosis Primary Hypercoagulation Syndrome (HCC) Monitoring For Therapeutic Drug Therapy Meat Stock Clerk (Current) Anticoagulant Treatm ent documented in this encounter Care Teams Casting Agent Relationship Specialty Start Date End Date Sridhar Garibay M.D. PCP - General 12/08/16 05/23/18 [address] [place] [phone] documented as of this encounter
--- OUTSIDE RECORDS SUMMARY | 2022-04-25 15:58 | XMS_ITS | Encounter Summary ---
:1975 Author Organization [facility] Address [address] [place] [address] Care Team Providers Name Role Phone Jacki Luther P.A.-C. Primary Care Provider Reason for Visit Reason Comments Med Refill Encounter Details Date Type Department Care Team Description 10/16/2017 Refill Department of Family Medicine, Sridhar Malave M.D. Med Refill [facility], in [place], [address] [place] [address] [place] [address] [place] [address] [phone] Social History Tobacco Use Types Packs/Day Years Used Date Smoking Tobacco: Never Sex Assigned at Date Recorded Not on file documented as of this encounter Miscellaneous Notes Telephone Encounter - Deborah Loco R.N. - 10/16/2017 2:28 PM CDT Patient requesting a refill on her warfarin. The INR nurses cannot do this per protocol because she has not seen a provider in the last 12 months about her warfarin use and does not have an upcoming appointment. This has been pended to you in case you would like to fill it. Please advise. Telephone Encounter - Deborah Loco R.N. - 10/16/2017 2:27 PM CDT Warfarin Prescription Refill Protocol (version approved 09/15/16) Inclusion Criteria: All inclusion criteria met. Proceeded to exclusion criteria. Exclusion Criteria: No exclusion criteria, proceeded to screening criteria. Screening Criteria: Patient has NOT seen a [facility] provider within the past 12 months for warfarin therapy management. The patient does NOT have an appointment scheduled in the next 30 days. Protocol does NOT apply. Provider input required. Plan: No warfarin refill sent at this time. Provider notified. documented in this encounter Plan of Treatment Not on filedocumented as of this encounter Visit Diagnoses Not on filedocumented in this encounter Care Teams Pbx Repairer Relationship Specialty Start Date End Date Jacki Luther P.A.-C. PCP - General Family Medicine 05/24/18 09/24/19 documented as of this encounter
--- OUTSIDE RECORDS SUMMARY | 2022-04-25 15:58 | XMS_ITS | Encounter Summary ---
:1975 Author Organization [facility] Address [address] [place] [address] Care Team Providers Name Role Phone Sridhar Garibay M.D. Primary Care Provider Encounter Details Date Type Department Care Team Description 09/28/2017 Anticoagulation Visit Department of Hari Medina For Therapeutic Drug Therapy; Anticoagulation in [place], Aircraft Landing Gear Inspector Anticoagulant Treatment; [place], [place] RMichael Primary Hypercoagulation Syndrome (HCC) 701 [facility] [address] [address] [place], [place] [phone] [address] Social History Tobacco Use Types Packs/Day Years Used Date Smoking Tobacco: Never Sex Assigned at Date Recorded Not on file documented as of this encounter Progress Notes Love Medina RViktor - 09/28/2017 10:52 AM CDT Warfarin Maintenance Nursing Protocol Goal Range 2.0-3.0 (version approved 02/24/17) Visit Type: Telephone visit today. Primary reason for visit: Routine f/u OR f/u per previous visit recommendations Information provided by: patient and caregiver MomFabiola Inclusion Criteria: All inclusion criteria met. Proceeded to exclusion criteria. Exclusion Criteria: No exclusion criteria, proceeded to screening criteria. Screening Criteria: All screening criteria negative (Patient is NOT in first 12 weeks warfarin therapy, NO cardiac procedure in last 30 days (except pacemaker battery change or catheterization without intervention), INR has NOT changed by > or = 1 since last INR check, NO medication change/addition since last INR check (or within last 4 weeks for amiodarone), NOT enrolled in Home INR Program, NO change in adherence in last 3 days, NO change in diet/lifestyle, alcohol intake, or health status in last 3 days, and NO vomiting/diarrhea that lasted longer than 24 hours in last 3 days). Proceeded to maintenance warfarin dosing and follow-up Additional info: None Previous INR was Therapeutic. Today???s INR is Therapeutic. Dosing and follow up recommendation: INR 2.0-3.0 No change in weekly dose. Next INR: 4-6 weeks (maximum) Pt on LMWH: No Patient Visit summary provided to: caregiver repeats back dosing instructions and has no further questions at this time. documented in this encounter Plan of Treatment Not on filedocumented as of this encounter Results (ABNORMAL) PT (Prothrombin Time) with INR (10/26/2017 8:00 AM CDT) [facility] gist Method Time Signature Prothrombin 28.1 (H) 8.8 - 11.9 10/26/2017 [facility] Time, P sec 9:55 AM CDT [facility] 2.5 0.9 - 1.2 10/26/2017 [facility] 9:55 AM [facility] Comment: Standard intensity warfarin therapeutic range: 2.0 to 3.0 High intensity warfarin therapeutic rang e: 2.5 to 3.5 Specimen Anatomical Collection Method Collection Time Receive d Time (Source) Location / / Volume Laterality Blood (Blood, 10/26/2017 8:00 AM 10/27/19 18 9:32 Venous) CDT AM CDT Sridhar Garibay M.D. LAB BLOOD ADD-ON Performing Organization Address City/State/ZIP Code Phon e Number [facility] [place] [address] [facility] [place] [facility] documented in this encounter Visit Diagnoses Diagnosis Monitoring For Therapeutic Drug Therapy Aircraft Landing Gear Inspector (Current) Anticoagulant Treatm ent Primary Hypercoagulation Syndrome (HCC) documented in this encounter Care Teams Taffy Candy Maker Relationship Specialty Start Date End Date Sridhar Garibay M.D. PCP - General 12/08/16 05/23/18 [place] [phone] documented as of this encounter
--- OUTSIDE RECORDS SUMMARY | 2022-04-25 15:58 | XMS_ITS | Encounter Summary ---
:1975 Author Organization [facility] Address [address] [place] [address] Care Team Providers Name Role Phone Sridhar Garibay M.D. Primary Care Provider Encounter Details Date Type Department Care Team Description 05/25/2017 Hospital Encounter Department of Clyde Garibay Laboratory Medicine Sridhar Helton M.D. ([facility]) in [place], [address] [place], [place] 701 [facility] [address] [place], [place] [phone] (Work) [phone] Social History Tobacco Use Types Packs/Day Years Used Date Smoking Tobacco: Never Sex Assigned at Date Recorded Not on file documented as of this encounter Medications at Time of Discharge Medication Sig Dispensed Refills Start Date End Date chlorhexidine Take 15 mL by mouth 0 02/21/2016 (for_PERIDEX) 0.12 % at bedtime. mouthwash multivitamin tablet Take 2 tablets by 0 3 mouth daily. acetaminophen Take 2 tablets by 0 02/21/201606/26 (for_TYLENOL) 500 mg mouth every 6 (six) tablet hours as needed. FLUORIDE, SODIUM, DENTAL Apply 1 application 0 12/31/2019 topically 2 (two) times a day. warfarin (for_COUMADIN) warfarin 2.5 mg oral 0 08/29/2021 2.5 mg tablet tablet See Instructions, 5mg Sun, Tues & Thurs, 2.5mg all other days or as directed per INR Clinic as of 09/29/2016, 30 tab(s) warfarin (for_COUMADIN) warfarin 5 mg oral 0 12/2510/16/2017 5 mg tablet tablet See Instructions, HOLD 03/16, then 5mg Sun/Tu/Th and 2.5mg all other days or as directed by INR Clinic as of 03/16/2017., 60 tab(s), 1 Refill(s) documented as of this encounter Plan of Treatment Not on filedocumented as of this encounter Procedures Procedure Name Priority Date/Time Associated Comments Diagnosis PROTHROMBIN TIME Routine 05/25/2017 8:05 AM Deficiency Protein Results for this (PT), P LEAD OXIDE MILL TENDER S (HCC) procedure are i n the results section. documented in this encounter Results (ABNORMAL) PT (Prothrombin Time) with INR (05/25/2017 8:05 AM LEAD OXIDE MILL TENDER) [facility] Method Time Signature Prothrombin 29.1 (H) 8.8 - 11.9 05/25/2017 [facility] Time, P sec 11:40 AM [facility] INR 2.6 0.9 - 1.2 05/25/2017 [facility] 11:40 AM [facility] Comment: Standard intensity warfarin therapeutic range: 2.0 to 3.0 High intensity warfarin therapeutic rang e: 2.5 to 3.5 Specimen Anatomical Collection Method Collection Time Receive d Time (Source) Location / / Volume Laterality Blood (Blood, 05/25/2017 8:05 AM 05/25/20 17 Venous) LEAD OXIDE MILL TENDER 11:15 AM LEAD OXIDE MILL TENDER Sridhar Garibay M.D. LAB BLOOD ADD-ON Performing Organization Address City/State/ZIP Code Phon e Number [facility] [address] [place] [address] [facility] documented in this encounter Visit Diagnoses Diagnosis Deficiency Protein S (HCC) documented in this encounter Care Teams Material Handler Floorperson Relationship Specialty Start Date End Date Sridhar Garibay M.D. PCP - General 12/08/16 05/23/18 [place] [phone] documented as of this encounter
--- OUTSIDE RECORDS SUMMARY | 2022-04-25 15:58 | XMS_ITS | Encounter Summary ---
:1975 Author Organization [facility] Address [address] [place] [address] Care Team Providers Name Role Phone Sridhar Garibay M.D. Primary Care Provider Encounter Details Date Type Department Care Team Description 06/15/2017 Hospital Encounter Department of Isrrael Garibay Therapy; Laboratory Medicine Sridhar Helton M.D. Primary Hypercoagulation Syndrome (HCC) in [place], [address] [place], [place] 701 [facility] [address] [place], [place] [phone] (Work) [phone] Social History Tobacco Use Types Packs/Day Years [...] tablet See Instructions, HOLD 03/16, then 5mg Sun/Tues/Thurs and 2.5mg all other days or as directed by INR Clinic as of 03/16/2017., 60 tab(s), 1 Refill(s) documented as of this encounter Plan of Treatment Not on filedocumented as of this encounter Procedures Procedure Name Priority Date/Time Associated Diagnosis Comme nts PROTHROMBIN TIME Routine 06/15/2017 8:00 Anticoagulant T herapy Results for this (PT), P AM FIELD EDUCATION DIRECTOR Primary Hypercoagulation pro cedure are in Syndrome (HCC) the results section. documented in this encounter Results (ABNORMAL) PT (Prothrombin Time) with INR (06/15/2017 8:00 AM FIELD EDUCATION DIRECTOR) [facility] Method Time Signature Prothrombin 28.0 (H) 8.8 - 11.9 06/15/2017 [facility] Time, P sec 9:24 AM [facility] INR 2.6 0.9 - 1.2 06/15/2017 [facility] 9:24 AM [facility] Comment: Standard intensity warfarin therapeutic range: 2.0 to 3.0 High intensity warfarin therapeutic rang e: 2.5 to 3.5 Specimen Anatomical Collection Method Collection Time Receive d Time (Source) Location / / Volume Laterality Blood (Blood, 06/15/2017 8:00 AM 06/15/20 17 9:06 Venous) FIELD EDUCATION DIRECTOR AM FIELD EDUCATION DIRECTOR Sridhar Garibay M.D. LAB BLOOD ADD-ON Performing Organization Address City/State/ZIP Code Phon e Number [facility] [address] [place] [place] [address] [place] [facility] documented in this encounter Visit Diagnoses Diagnosis Anticoagulant Therapy Primary Hypercoagulation Syndrome (HCC) documented in this encounter Care Teams Boat Builder Relationship Specialty Start Date End Date Sridhar Garibay M.D. PCP - General 12/08/16 05/23/18 [address] [place] [phone] documented as of this encounter
--- OUTSIDE RECORDS SUMMARY | 2022-04-25 15:58 | XMS_ITS | Encounter Summary ---
:1975 Author Organization [facility] Address [address] [place] [address] Care Team Providers Name Role Phone Sridhar Garibay M.D. Primary Care Provider Encounter Details Date Type Department Care Team Description 08/10/2017 Anticoagulation Visit Department of [place], Antic oagulant Therapy; Anticoagulation in [place] Primary H ypercoagulation Syndrome (HCC) [place], [place] R.N. [address] [place], [place] [address] [place], [place] [phone] Social History Tobacco Use Types Packs/Day Years Used Date Smoking Tobacco: Never Sex Assigned at Date Recorded Not on file documented as of this encounter Progress Notes Chava Garza, RMichaelN. - 08/10/2017 9:59 AM CST Warfarin Maintenance Nursing Protocol Goal Range 2.0-3.0 (version approved 02/24/17) Visit Type: Telephone visit today. Primary reason for visit: Routine f/u OR f/u per previous visit recommendations Information provided by: Mother, Fabiola Inclusion Criteria: All inclusion criteria met. Proceeded [...] has no further questions at this time. E SOLE SCOURER documented in this encounter Plan of Treatment Not on filedocumented as of this encounter Results (ABNORMAL) PT (Prothrombin Time) with INR (09/07/2017 8:00 AM CDT) [facility] gist Method Time Signature Prothrombin 36.5 (H) 8.8 - 11.9 09/07/2017 [facility] Time, P sec 10:08 AM CDT [facility] INR 3.3 0.9 - 1.2 09/07/2017 [facility] 10:08 AM [facility] Comment: Standard intensity warfarin therapeutic range: 2.0 to 3.0 High intensity warfarin therapeutic rang e: 2.5 to 3.5 Specimen Anatomical Collection Method Collection Time Receive d Time (Source) Location / / Volume Laterality Blood (Blood, 09/07/2017 8:00 AM 09/08/19 18 9:27 Venous) CDT AM CDT Sridhar Garibay M.D. LAB BLOOD ADD-ON Performing Organization Address City/State/ZIP Code Phon e Number [facility] [address] [place] [address] [facility] documented in this encounter Visit Diagnoses Diagnosis Anticoagulant Therapy Primary Hypercoagulation Syndrome (HCC) documented in this encounter Care Teams Sheet Writer Relationship Specialty Start Date End Date Sridhar Garibay M.D. PCP - General 12/08/16 05/23/18 [place] [phone] documented as of this encounter
--- OUTSIDE RECORDS SUMMARY | 2022-04-25 15:58 | XMS_ITS | Encounter Summary ---
:1975 Author Organization [facility] Address [address] [place] [address] Care Team Providers Name Role Phone Sridhar Garibay M.D. Primary Care Provider Encounter Details Date Type Department Care Team Description 09/14/2017 Anticoagulation Visit Department of Hari Medina For Therapeutic Drug Therapy; Anticoagulation in [place] , In School Suspension Aide Anticoagulant Treatment; [place], [place] RMichael Primary Hypercoagulation Syndrome (HCC) 701 [facility] [address] [facility] [address] [place], [place] [phone] Social History Tobacco Use Types Packs/Day Years Used Date Smoking Tobacco: Never Sex Assigned at Date Recorded Not on file documented as of this encounter Progress Notes Love Medina RViktor - 09/14/2017 3:22 PM CDT Warfarin Maintenance Nursing Protocol Goal Range 2.0-3.0 (version approved 02/24/17) Visit Type: Telephone visit today. Primary reason for visit: Routine f/u OR f/u per previous visit recommendations Information provided by: patient and caregiver Mom/POA Inclusion Criteria: All inclusion criteria met. Proceeded [...] maintenance warfarin dosing and follow-up Additional info: Takes Tylenol occasionally for knee pain Previous INR was Supratherapeutic. Today???s INR is Therapeutic. Dosing and follow up recommendation: INR 2.0-3.0 No change in weekly dose. Next INR: Twice amount oftime since last INR (max 4-6 weeks): 14 days Pt on LMWH: No Patient Visit summary provided to: Mom/Fabiola repeats back dosing instructions and has no further questions at this time. documented in this encounter Plan of Treatment Not on filedocumented as of this encounter Results (ABNORMAL) PT (Prothrombin Time) with INR (09/28/2017 8:00 AM CDT) [facility] Method Time Signature Prothrombin 31.1 (H) 8.8 - 11.9 09/28/2017 [facility] Time, P sec 10:45 AM CDT [facility] INR 2.8 0.9 - 1.2 09/28/2017 [facility] 10:45 AM CDT [facility] Comment: Standard intensity warfarin therapeutic range: 2.0 to 3.0 High intensity warfarin therapeutic rang e: 2.5 to 3.5 Specimen Anatomical Collection Method Collection Time Receive d Time (Source) Location / / Volume Laterality Blood (Blood, 09/28/2017 8:00 AM 09/29/19 18 Venous) CDT 10:13 AM CDT Sridhar Garibay M.D. LAB BLOOD ADD-ON Performing Organization Address City/State/ZIP Code Phon e Number [facility] 701 [facility] [place] [address] [facility] documented in this encounter Visit Diagnoses Diagnosis Monitoring For Therapeutic Drug Therapy Penitentiary (Current) Anticoagulant Treatm ent Primary Hypercoagulation Syndrome (HCC) documented in this encounter Care Teams Credit Assessment Analyst Relationship Specialty Start Date End Date Sridhar Garibay M.D. PCP - General 12/08/16 05/23/18 [address] [place] [phone] documented as of this encounter
--- OUTSIDE RECORDS SUMMARY | 2022-04-25 15:58 | XMS_ITS | Encounter Summary ---
:1975 Author Organization [facility] Address [address] [place] [address] Care Team Providers Name Role Phone Sridhar Garibay M.D. Primary Care Provider Reason for Visit Reason Onset Date Comments work slip 11/27/2017 Communication 11/27/2017 Encounter Details Date Type Department Care Team Description 11/27/2017 Clinical Department of Óscar Ortiz work slip; Communication Orthopedic Surgery Gabby Benavides Communication in [place], [address] [facility], [place] [address] [place] [address] [place], [place] [phone] (Work) [phone] Social History Tobacco Use Types Packs/Day Years Used Date Smoking Tobacco: Never Sex Assigned at Date Recorded Not on file documented as of this encounter Miscellaneous Notes Telephone Encounter - Kanchan Delgado APRN, C.N.P., M.S.N. - 11/27/2017 10:28 AM CDT Sent WSR Telephone Encounter - Patricia Bailey - 11/27/2017 9:00 AM CDT She states the patient's employer is requesting a note state the patient does not have any further lifting restrictions. That she can work without restrictions. documented in this encounter Plan of Treatment Not on filedocumented as of this encounter Visit Diagnoses Not on filedocumented in this encounter Care Teams Support Representative Relationship Specialty Start Date End Date Sridhar Garibay M.D. PCP - General 12/08/16 05/23/18 [address] [place] [phone] documented as of this encounter
--- OUTSIDE RECORDS SUMMARY | 2022-04-25 15:58 | XMS_ITS | Encounter Summary ---
:1975 Author Organization [facility] Address [address] [place] [address] Care Team Providers Name Role Phone Sridhar Garibay M.D. Primary Care Provider Encounter Details Date Type Department Care Team Description 09/28/2017 Hospital Encounter Department of Haile Garibay Hypercoagulation Laboratory Medicine Sridhar Helton M.D. Syndrome (HCC) in [place], [address] [place], [place] [address] [address] [place], [place] [phone] (Work) [phone] Social History Tobacco Use Types Packs/Day Years [...] warfarin (for_COUMADIN) warfarin 5 mg oral 0 /11/201610/16/2017 5 mg tablet tablet See Instructions, HOLD 03/16, then 5mg Sun/Tues/Thurs and 2.5mg all other days or as directed by INR Clinic as of 03/16/2017., 60 tab(s), 1 Refill(s) documented as of this encounter Plan of Treatment Not on filedocumented as of this encounter Procedures Procedure Name Priority Date/Time Associated Diagnosis Comme nts PROTHROMBIN TIME Routine 09/28/2017 8:00 Primary Hypercoagulat ion Results for this (PT), P AM CDT Syndrome (HCC) procedure are in the results section. documented in this encounter Results (ABNORMAL) PT (Prothrombin Time) with INR (09/28/2017 8:00 AM CDT) [facility] Method Time Signature Prothrombin 31.1 (H) 8.8 - 11.9 09/28/2017 [facility] Time, P sec 10:45 AM CDT [facility] INR 2.8 0.9 - 1.2 09/28/2017 [facility] 10:45 AM CDT [facility] [...] Organization Address City/State/ZIP Code Phon e Number [facility] [address] [address] [facility] documented in this encounter Visit Diagnoses Diagnosis Primary Hypercoagulation Syndrome (HCC) documented in this encounter Care Teams Mobile Home Laborer Relationship Specialty Start Date End Date Sridhar Garibay M.D. PCP - General 12/08/16 05/23/18 [address] [phone] documented as of this encounter
--- OUTSIDE RECORDS SUMMARY | 2022-04-25 15:58 | XMS_ITS | Encounter Summary ---
:1975 Author Organization [facility] Address [address] [place] [address] Care Team Providers Name Role Phone Sridhar Garibay M.D. Primary Care Provider Encounter Details Date Type Department Care Team Description 05/17/2017 Anticoagulation Visit Department of Gela Cordon Protein Anticoagulation in Javier Whitaker ([facility]) ( Primary [place], [place] R.N. Dx) [address] [place] [address] [place] [address] [place] [address] Social History Tobacco Use Types Packs/Day Years Used Date Smoking Tobacco: Never Sex Assigned at Date Recorded Not on file documented as of this encounter Progress Notes Breana Cordon, R.N. - 05/17/2017 4:23 PM CST Warfarin Maintenance Nursing Protocol Goal Range 2.0-3.0 (version approved 02/24/17) Visit Type: Telephone visit today. Primary reason for visit: Routine f/u OR f/u per previous visit recommendations Information provided by: patient and caregiver Mom Inclusion Criteria: All inclusion criteria met. Proceeded [...] follow-up Additional info: None Previous INR was Supratherapeutic. Today???s INR is Subtherapeutic, Causes: Unknown. Dosing and follow up recommendation: INR 1.8-1.9 No change in weekly dose. Bridging: no. Next INR: 8-10 days. Pt on LMWH: No Patient Visit summary provided to: Results and dosing directions given to Pop Alejandro who statesunderstanding of directions. N TENDER RESTORATION LABOR documented in this encounter Plan of Treatment Not on filedocumented as of this encounter Results (ABNORMAL) PT (Prothrombin Time) with INR (05/25/2017 8:05 AM MASON TENDER RESTORATION LABOR) [facility] Method Time Signature Prothrombin 29.1 (H) 8.8 - 11.9 05/25/2017 [facility] Time, P sec 11:40 AM [facility] INR 2.6 0.9 - 1.2 05/25/2017 [facility] 11:40 AM [facility] Comment: Standard intensity warfarin therapeutic range: 2.0 to 3.0 High intensity warfarin therapeutic rang e: 2.5 to 3.5 Specimen Anatomical Collection Method Collection Time Receive d Time (Source) Location / / Volume Laterality Blood (Blood, 05/25/2017 8:05 AM 05/25/20 17 Venous) MASON TENDER RESTORATION LABOR 11:15 AM MASON TENDER RESTORATION LABOR Sridhar Garibay M.D. LAB BLOOD ADD-ON Performing Organization Address City/State/ZIP Code Phon e Number [facility] [address] [address] [place] [facility] documented in this encounter Visit Diagnoses Diagnosis Deficiency Protein S (HCC) - Primary documented in this encounter Care Teams Incubator Operator Relationship Specialty Start Date End Date Sridhar Garibay M.D. PCP - General 12/08/16 05/23/18 [address] [phone] documented as of this encounter
--- OUTSIDE RECORDS SUMMARY | 2022-04-25 15:58 | XMS_ITS | Encounter Summary ---
:1975 Author Organization [facility] Address [address] [place] [address] Care Team Providers Name Role Phone Sridhar Garibay M.D. Primary Care Provider Encounter Details Date Type Department Care Team Description 07/13/2017 Anticoagulation Visit Department of Deepika Lazcano oagulant Therapy; Anticoagulation in [place] ypercoagulation Syndrome (HCC) [place], [place] R.NMichael [address] [place] [phone] Social History Tobacco Use Types Packs/Day Years Used Date Smoking Tobacco: Never Sex Assigned at Date Recorded Not on file documented as of this encounter Progress Notes Radha Lazcano RViktor - 07/13/2017 10:35 AM CST Warfarin Maintenance Nursing Protocol Goal Range 2.0-3.0 (version approved 02/24/17) Visit Type: Telephone visit today. Primary reason for visit: Routine f/u OR f/u per previous visit recommendations Information provided by: patient and daughter Inclusion Criteria: All inclusion criteria met. Proceeded [...] LMWH: No Patient Visit summary provided to: daughter repeats back dosing instructions and has no further questions at this time. OR SITE MANAGER documented in this encounter Plan of Treatment Not on filedocumented as of this encounter Procedures Procedure Name Priority Date/Time Associated Diagnosis Comme nts PROTHROMBIN TIME (PT), Routine 07/13/2017 Resul ts for this P procedure are i n the results section . documented in this encounter Results (ABNORMAL) PT (Prothrombin Time) with INR (08/10/2017 8:00 AM SENIOR SITE MANAGER) Patholo gist Method Time Signature Prothrombin 22.9 (H) 8.8 - 11.9 08/10/2017 [facility] Time, P sec 9:50 AM [facility] INR 2.2 0.9 - 1.2 08/10/2017 [facility] 9:50 AM [facility] Comment: Standard intensity warfarin therapeutic range: 2.0 to 3.0 High intensity warfarin therapeutic rang e: 2.5 to 3.5 Specimen Anatomical Collection Method Collection Time Receive d Time (Source) Location / / Volume Laterality Blood (Blood, 08/10/2017 8:00 AM 08/10/19 18 9:24 Venous) SENIOR SITE MANAGER AM SENIOR SITE MANAGER Sridhar Garibay M.D. LAB BLOOD ADD-ON Performing Organization Address City/State/ZIP Code Phon e Number [facility] [address] [facility] [place] [address] [place] PT (Prothrombin Time) with INR (07/13/2017) P athologist Signature EXT INR 2.2 [facility] Specimen (Source) Anatomical Location Collection Method / Collectio n Time Received Time / Laterality Volume Blood (Blood, Venous) Resulting Agency Comment Jonathan Sotelo Sridhar Garibay M.D. LAB BLOOD ADD-ON Performing Organization Address City/State/ZIP Code Phon e Number [facility] documented in this encounter Visit Diagnoses Diagnosis Anticoagulant Therapy Primary Hypercoagulation Syndrome (HCC) documented in this encounter Care Teams Welding Pantograph Operator Relationship Specialty Start Date End Date Sridhar Garibay M.D. PCP - General 12/08/16 05/23/18 [address] [place] [phone] documented as of this encounter
--- OUTSIDE RECORDS SUMMARY | 2022-04-25 15:58 | XMS_ITS | Encounter Summary ---
:1975 Author Organization [facility] Address [address] [place] [address] Care Team Providers Name Role Phone Sridhar Garibay M.D. Primary Care Provider Encounter Details Date Type Department Care Team Description 11/27/2017 Clinical Communication Department of Kanchan Delgado Orthopedic Surgery in [facility] [place], [place] M.S.N. [address] [facility] [address] [place] [address] [phone] Social History Tobacco Use Types Packs/Day Years Used Date Smoking Tobacco: Never Sex Assigned at Date Recorded Not on file documented as of this encounter Plan of Treatment Not on filedocumented as of this encounter Visit Diagnoses Not on filedocumented in this encounter Care Teams Camp Advisor Relationship Specialty Start Date End Date Sridhar Garibay M.D. PCP - General 12/08/16 05/23/18 [address] [place] [phone] documented as of this encounter
--- OUTSIDE RECORDS SUMMARY | 2022-04-25 15:58 | XMS_ITS | Encounter Summary ---
:1975 Author Organization [facility] Address [address] [place] [address] Care Team Providers Name Role Phone Sridhar Garibay M.D. Primary Care Provider Encounter Details Date Type Department Care Team Description 06/15/2017 Anticoagulation Visit Department of Deepika Campo oagulant Therapy; Anticoagulation in [place] Harris H ypercoagulation Syndrome (HCC) [place], [place] R.N. [address] [facility] [address] [address] [place], [place] [address] [address] [place], [place] [phone] Social History Tobacco Use Types Packs/Day Years Used Date Smoking Tobacco: Never Sex Assigned at Date Recorded Not on file documented as of this encounter Progress Notes Mima Campo, RMichaelNMichael - 06/15/2017 11:35 AM CST Warfarin Maintenance Nursing Protocol Goal Range 2.0-3.0 (version approved 02/24/17) Visit Type: Telephone visit today. Primary reason for visit: Routine f/u OR f/u per previous visit recommendations Information provided by: caregiver Mother/Fabiola Inclusion Criteria: All inclusion criteria met. Proceeded [...] LMWH: No Patient Visit summary provided to: Mother repeats back dosing instructions and has no further questions at this time. RINTENDENT OPERATING documented in this encounter Plan of Treatment Not on filedocumented as of this encounter Results (ABNORMAL) PT (Prothrombin Time) with INR (07/13/2017 8:00 AM SUPERINTENDENT OPERATING) [facility] gist Method Time Signature Prothrombin 24.0 (H) 8.8 - 11.9 07/13/2017 [facility] Time, P sec 10:06 AM [facility] INR 2.2 0.9 - 1.2 07/13/2017 [facility] 10:06 AM [facility] Comment: Standard intensity warfarin therapeutic range: 2.0 to 3.0 High intensity warfarin therapeutic rang e: 2.5 to 3.5 Specimen Anatomical Collection Method Collection Time Receive d Time (Source) Location / / Volume Laterality Blood (Blood, 07/13/2017 8:00 AM 07/13/19 18 9:19 Venous) SUPERINTENDENT OPERATING AM SUPERINTENDENT OPERATING Sridhar Garibay M.D. LAB BLOOD ADD-ON Performing Organization Address City/State/ZIP Code Phon e Number [facility] [address] [address] [facility] documented in this encounter Visit Diagnoses Diagnosis Anticoagulant Therapy Primary Hypercoagulation Syndrome (HCC) documented in this encounter Care Teams Animal Care Technician Relationship Specialty Start Date End Date Sridhar Garibay M.D. PCP - General 12/08/16 05/23/18 [address] [phone] documented as of this encounter
--- OUTSIDE RECORDS SUMMARY | 2022-04-25 15:58 | XMS_ITS | Encounter Summary ---
:1975 Author Organization [facility] Address [address] [place] [address] Care Team Providers Name Role Phone Sridhar Garibay M.D. Primary Care Provider Encounter Details Date Type Department Care Team Description 05/17/2017 Hospital Encounter Department of Isrrael Garibay Laboratory Medicine Sridhar Helton M.D. in [place], [address] [place], [place] [address] [facility] [address] [place], [place] [phone] (Work) [phone] Social History Tobacco Use Types Packs/Day Years [...] Associated Diagnosis Comme nts PROTHROMBIN TIME Routine 05/17/2017 3:26 PM Anticoagulant Ther apy Results for this (PT), P MOLD LOFT WORKER procedure are i n the results section. documented in this encounter Results (ABNORMAL) PT (Prothrombin Time) with INR (05/17/2017 3:26 PM MOLD LOFT WORKER) [facility] Method Time Signature Prothrombin 20.4 (H) 8.8 - 11.9 05/17/2017 [facility] Time, P sec 3:49 PM [facility] INR 1.9 0.9 - 1.2 05/17/2017 [facility] 3:49 PM [facility] Comment: Standard intensity warfarin therapeutic range: 2.0 to 3.0 High intensity warfarin therapeutic rang e: 2.5 to 3.5 Specimen Anatomical Collection Method Collection Time Receive d Time (Source) Location / / Volume Laterality Blood (Blood, 05/17/2017 3:26 PM 05/17/20 17 3:28 Venous) MOLD LOFT WORKER PM MOLD LOFT WORKER Sridhar Garibay M.D. LAB BLOOD ADD-ON Performing Organization Address City/State/ZIP Code Phon e Number [facility] [address] [address] [facility] [facility] documented in this encounter Visit Diagnoses Diagnosis Anticoagulant Therapy documented in this encounter Care Teams Bus Analyst Relationship Specialty Start Date End Date Sridhar Garibay M.D. PCP - General 12/08/16 05/23/18 [address] [phone] documented as of this encounter
--- OUTSIDE RECORDS SUMMARY | 2022-04-25 15:58 | XMS_ITS | Encounter Summary ---
:1975 Author Organization [facility] Address [address] [place] [address] Care Team Providers Name Role Phone Sridhar Garibay M.D. Primary Care Provider Encounter Details Date Type Department Care Team Description 10/26/2017 Anticoagulation Visit Department of Hari Medina For Therapeutic Drug Therapy; Anticoagulation in [place], [place]er Anticoagulant Treatment; [place], [place] RMichael Primary Hypercoagulation Syndrome (HCC) [address] [facility] [address] [facility] [address] [address] [place], [place] [phone] [address] Social History Tobacco Use Types Packs/Day Years Used Date Smoking Tobacco: Never Sex Assigned at Date Recorded Not on file documented as of this encounter Progress Notes Love Medina RViktor - 10/26/2017 10:56 AM CDT Warfarin Maintenance Nursing Protocol Goal [...] LMWH: No Patient Visit summary provided to: Fabiola Hernandez repeats back dosing instructions and has no further questions at this time. documented in this encounter Plan of Treatment Not on filedocumented as of this encounter Visit Diagnoses Diagnosis Monitoring For Therapeutic Drug Therapy Senior Living (Current) Anticoagulant Treatm ent Primary Hypercoagulation Syndrome (HCC) documented in this encounter Care Teams Parts Designer Relationship Specialty Start Date End Date Sridhar Garibay M.D. PCP - General 12/08/16 05/23/18 [address] [place] [phone] documented as of this encounter
--- OUTSIDE RECORDS SUMMARY | 2022-04-25 15:58 | XMS_ITS | Encounter Summary ---
:1975 Author Organization [facility] Address [address] [place] [address] Care Team Providers Name Role Phone Sridhar Garibay M.D. Primary Care Provider Encounter Details Date Type Department Care Team Description 07/13/2017 Hospital Encounter Department of Haile Garibay Hypercoagulation Laboratory Medicine Sridhar Helton M.D. Syndrome (HCC) in [place], [address] [place], [place] [address] [address] [place], [place] [phone] (Work) [phone] Social History Tobacco Use Types Packs/Day Years [...] Associated Diagnosis Comme nts PROTHROMBIN TIME Routine 07/13/2017 8:00 Primary Hypercoagulat ion Results for this (PT), P AM SHIPPING TEAM LEADER Syndrome (HCC) procedure are in the results section. documented in this encounter Results (ABNORMAL) PT (Prothrombin Time) with INR (07/13/2017 8:00 AM SHIPPING TEAM LEADER) [facility] Method Time Signature Prothrombin 24.0 (H) 8.8 - 11.9 07/13/[address] [facility] Time, P sec 10:06 AM [facility] INR 2.2 0.9 - 1.2 07/13/[address] [facility] 10:06 AM [facility] Comment: Standard intensity warfarin therapeutic range: 2.0 to 3.0 High intensity warfarin therapeutic rang e: 2.5 to 3.5 Specimen Anatomical Collection Method Collection Time Receive d Time (Source) Location / / Volume Laterality Blood (Blood, 07/13/2017 8:00 AM 07/13/19 18 9:19 Venous) SHIPPING TEAM LEADER AM SHIPPING TEAM LEADER Sridhar Garibay M.D. LAB BLOOD ADD-ON Performing Organization Address City/State/ZIP Code Phon e Number [facility] [address] [address] [facility] documented in this encounter Visit Diagnoses Diagnosis Primary Hypercoagulation Syndrome (HCC) documented in this encounter Care Teams Customer Experience Retail Clerk Relationship Specialty Start Date End Date Sridhar Garibay M.D. PCP - General 12/08/16 05/23/18 [address] [phone] documented as of this encounter
--- OUTSIDE RECORDS SUMMARY | 2022-04-25 15:58 | XMS_ITS | Encounter Summary ---
:1975 Author Organization [facility] Address [address] [place] [address] Care Team Providers Name Role Phone Sridhar Garibay M.D. Primary Care Provider Encounter Details Date Type Department Care Team Description 09/07/2017 Anticoagulation Visit Department of [place], Antic oagulant Therapy; Anticoagulation in [place] ypercoagulation Syndrome (HCC); [place], [place] R.NMichael Monitoring For Therapeutic Drug Therapy; [address] [facility] Anticoagulant [place] [address] [address] [place], [place] [phone] Social History Tobacco Use Types Packs/Day Years Used Date Smoking Tobacco: Never Sex Assigned at Date Recorded Not on file documented as of this encounter Progress Notes Chava Garza R.N. - 09/07/2017 11:33 AM CDT Warfarin Maintenance Nursing Protocol Goal Range 2.0-3.0 (version approved 02/24/17) Visit Type: Telephone visit today. Primary reason for visit: Routine f/u OR f/u per previous visit recommendations Information provided by: caregiver Fabiola, pts mom Inclusion Criteria: All inclusion criteria met. Proceeded [...] Previous INR was Therapeutic. Today???s INR is Supratherapeutic, Causes: Unknown, may be taking some tylenol for her arthritis. Dosing and follow up recommendation: INR 3.3-3.5 Decreased average daily dose by 50% x1 dose, then resume current dose until next INR check. . Next INR: 8-10 days Pt on LMWH: No Patient Visit summary provided to: mother Hicks repeats back dosing instructions and has no furtherquestions at this time. documented in this encounter Plan of Treatment Not on filedocumented as of this encounter Results (ABNORMAL) PT (Prothrombin Time) with INR (09/14/2017 8:00 AM CDT) [facility] gist Method Time Signature Prothrombin 33.9 (H) 8.8 - 11.9 09/14/2017 [facility] Time, P sec 10:27 AM CDT [facility] INR 3.0 0.9 - 1.2 09/14/2017 [facility] 10:27 AM CDT [facility] Comment: Standard intensity warfarin therapeutic range: 2.0 to 3.0 High intensity warfarin therapeutic rang e: 2.5 to 3.5 Specimen Anatomical Collection Method Collection Time Receive d Time (Source) Location / / Volume Laterality Blood (Blood, 09/14/2017 8:00 AM 09/15/19 18 Venous) CDT 10:02 AM CDT Sridhar Garibay M.D. LAB BLOOD ADD-ON Performing Organization Address City/State/ZIP Code Phon e Number [facility] [address] [place] [address] [place] [facility] documented in this encounter Visit Diagnoses Diagnosis Anticoagulant Therapy Primary Hypercoagulation Syndrome (HCC) Monitoring For Therapeutic Drug Therapy Die Attaching Machine Tender (Current) Anticoagulant Treatm ent documented in this encounter Care Teams Clinical Cytogeneticist Scientist Relationship Specialty Start Date End Date Sridhar Garibay M.D. PCP - General 12/08/16 05/23/18 [address] [place] [phone] documented as of this encounter
--- OUTSIDE RECORDS SUMMARY | 2022-04-25 15:58 | XMS_ITS | Encounter Summary ---
:1975 Author Organization [facility] Address [address] [place] [address] Care Team Providers Name Role Phone Sridhar Garibay M.D. Primary Care Provider Encounter Details Date Type Department Care Team Description 10/26/2017 Hospital Encounter Department of Haile Garibay Hypercoagulation Laboratory Medicine Sridhar Helton M.D. Syndrome (HCC) in [place], [address] [place], [place] [address] [address] [place], [place] [phone] (Work) [phone] Social History Tobacco Use Types Packs/Day Years [...] topically 2 (two) times a day. warfarin (COUMADIN) 5 mg 1 tab by mouth on 60 tablet 11 09/2502/27/2018 tablet Tues and 1/2 tab all other days or as directed by INR clinic. warfarin (for_COUMADIN) [...] Associated Diagnosis Comme nts PROTHROMBIN TIME Routine 10/26/2017 8:00 Primary Hypercoagulat ion Results for this (PT), P AM CDT Syndrome (HCC) procedure are in the results section. documented in this encounter Results (ABNORMAL) PT (Prothrombin Time) with INR (10/26/2017 8:00 AM CDT) [facility] Method Time Signature Prothrombin 28.1 (H) 8.8 - 11.9 10/26/2017 [facility] Time, P sec 9:55 AM CDT [facility] INR 2.5 0.9 - 1.2 10/26/2017 [facility] 9:55 AM T [facility] Comment: Standard intensity warfarin therapeutic range: 2.0 to 3.0 High intensity warfarin therapeutic rang e: 2.5 to 3.5 Specimen Anatomical Collection Method Collection Time Receive d Time (Source) Location / / Volume Laterality Blood (Blood, 10/26/2017 8:00 AM 10/27/19 18 9:32 Venous) CDT AM CDT Sridhar Garibay M.D. LAB BLOOD ADD-ON Performing Organization Address City/State/ZIP Code Phon e Number [facility] [address] [place] [address] [facility] [facility] documented in this encounter Visit Diagnoses Diagnosis Primary Hypercoagulation Syndrome (HCC) documented in this encounter Care Teams Library Monitor Relationship Specialty Start Date End Date Sridhar Garibay M.D. PCP - General 12/08/16 05/23/18 [address] [phone] documented as of this encounter
--- OUTSIDE RECORDS SUMMARY | 2022-04-25 15:58 | XMS_ITS | Encounter Summary ---
:1975 Author Organization [facility] Address [address] [place] [address] Care Team Providers Name Role Phone Sridhar Garibay M.D. Primary Care Provider Encounter Details Date Type Department Care Team Description 05/25/2017 Anticoagulation Visit Department of Holes, Antic oagulant Therapy; Anticoagulation in [place]ava Simmons Primary H ypercoagulation Syndrome (HCC) [place], [place] R.N. [address] [place] [address] [address] [place], [place] [phone] Social History Tobacco Use Types Packs/Day Years Used Date Smoking Tobacco: Never Sex Assigned at Date Recorded Not on file documented as of this encounter Progress Notes Chava Garza, R.N. - 05/25/2017 2:01 PM CST Warfarin Maintenance Nursing Protocol Goal Range 2.0-3.0 (version approved 02/24/17) Visit Type: Telephone visit today. Primary reason for visit: Routine f/u OR f/u per previous visit recommendations Information provided by: patients mother, Fabiola Inclusion Criteria: All inclusion criteria met. [...] of warfarin dosing and next INR appointment. PRESS FEEDER documented in this encounter Plan of Treatment Not on filedocumented as of this encounter Results (ABNORMAL) PT (Prothrombin Time) with INR (06/15/2017 8:00 AM JOB PRESS FEEDER) [facility] Method Time Signature Prothrombin 28.0 (H) 8.8 - 11.9 06/15/2017 [facility] Time, P sec 9:24 AM [facility] INR 2.6 0.9 - 1.2 06/15/2017 [facility] 9:24 AM [facility] Comment: Standard intensity warfarin therapeutic range: 2.0 to 3.0 High intensity warfarin therapeutic rang e: 2.5 to 3.5 Specimen Anatomical Collection Method Collection Time Receive d Time (Source) Location / / Volume Laterality Blood (Blood, 06/15/2017 8:00 AM 06/15/20 17 9:06 Venous) JOB PRESS FEEDER AM JOB PRESS FEEDER Sridhar Garibay M.D. LAB BLOOD ADD-ON Performing Organization Address City/State/ZIP Code Phon e Number [facility] [address] [address] [place] [facility] documented in this encounter Visit Diagnoses Diagnosis Anticoagulant Therapy Primary Hypercoagulation Syndrome (HCC) documented in this encounter Care Teams Burrer Hand Relationship Specialty Start Date End Date Sridhar Garibay M.D. PCP - General 12/08/16 05/23/18 [address] [phone] documented as of this encounter
--- OUTSIDE RECORDS SUMMARY | 2022-04-25 15:58 | XMS_ITS | Encounter Summary ---
:1975 Author Organization [facility] Address [address] [place] [address] Care Team Providers Name Role Phone Sridhar Garibay M.D. Primary Care Provider Encounter Details Date Type Department Care Team Description 08/10/2017 Hospital Encounter Department of Isrrael Garibay Therapy; Laboratory Medicine Sridhar Helton M.D. Primary Hypercoagulation Syndrome (HCC) in [place], [address] [place], [place] [address] [facility] [address] [place], [place] [phone] (Work) [phone] Social History Tobacco Use Types Packs/Day Years [...] Associated Diagnosis Comme nts PROTHROMBIN TIME Routine 08/10/2017 8:00 Anticoagulant T herapy Results for this (PT), P AM REGISTRATION SCHEDULING SPECIALIST Primary Hypercoagulation pro cedure are in Syndrome (HCC) the results section. documented in this encounter Results (ABNORMAL) PT (Prothrombin Time) with INR (08/10/2017 8:00 AM REGISTRATION SCHEDULING SPECIALIST) [facility] Method Time Signature Prothrombin 22.9 (H) 8.8 - 11.9 08/10/2017 [facility] Time, P sec 9:50 AM [facility] INR 2.2 0.9 - 1.2 08/10/2017 [facility] 9:50 AM [facility] Comment: Standard intensity warfarin therapeutic range: 2.0 to 3.0 High intensity warfarin therapeutic rang e: 2.5 to 3.5 Specimen Anatomical Collection Method Collection Time Receive d Time (Source) Location / / Volume Laterality Blood (Blood, 08/10/2017 8:00 AM 08/10/19 18 9:24 Venous) REGISTRATION SCHEDULING SPECIALIST AM REGISTRATION SCHEDULING SPECIALIST Sridhar Garibay M.D. LAB BLOOD ADD-ON Performing Organization Address City/State/ZIP Code Phon e Number [facility] [address] [id number] [place] [facility] documented in this encounter Visit Diagnoses Diagnosis Anticoagulant Therapy Primary Hypercoagulation Syndrome (HCC) documented in this encounter Care Teams Manager Part Relationship Specialty Start Date End Date Sridhar Garibay M.D. PCP - General 12/08/16 05/23/18 [address] [phone] documented as of this encounter
--- OUTSIDE RECORDS SUMMARY | 2022-04-25 15:58 | XMS_ITS | Encounter Summary ---
:1975 Author Organization [facility] Address [address] [place] [address] Care Team Providers Name Role Phone Sridhar Garibay M.D. Primary Care Provider Encounter Details Date Type Department Care Team Description 09/07/2017 Hospital Encounter Department of Isrrael Garibay Therapy Laboratory Medicine Sridhar Helton M.D. in [place], [address] [place], [place] [address] [facility] [address] [place], [place] [phone] (Work) [phone] Social History Tobacco Use Types Packs/Day Years [...] Associated Diagnosis Comme nts PROTHROMBIN TIME Routine 09/07/2017 8:00 AM Anticoagulant Ther apy Results for this (PT), P CDT procedure are i n the results section. documented in this encounter Results (ABNORMAL) PT (Prothrombin Time) with INR (09/07/2017 8:00 AM CDT) [facility] Method Time Signature Prothrombin 36.5 (H) 8.8 - 11.9 09/07/2017 [facility] Time, P sec 10:08 AM CDT [facility] INR 3.3 0.9 - 1.2 09/07/2017 [facility] 10:08 AM CDT [facility] Comment: Standard intensity warfarin therapeutic range: 2.0 to 3.0 High intensity warfarin therapeutic rang e: 2.5 to 3.5 Specimen Anatomical Collection Method Collection Time Receive d Time (Source) Location / / Volume Laterality Blood (Blood, 09/07/2017 8:00 AM 09/08/19 18 9:27 Venous) CDT AM CDT Sridhar Garibay M.D. LAB BLOOD ADD-ON Performing Organization Address City/State/ZIP Code Phon e Number [facility] [address] [id number] [place] [facility] documented in this encounter Visit Diagnoses Diagnosis Anticoagulant Therapy documented in this encounter Care Teams Vp Lab Relationship Specialty Start Date End Date Sridhar Garibay M.D. PCP - General 12/08/16 05/23/18 [address] [phone] documented as of this encounter
--- OUTSIDE RECORDS SUMMARY | 2022-04-25 15:59 | XMS_ITS | Encounter Summary ---
:1975 Author Organization [facility] Address [address] [place] [id number] Care Team Providers Name Role Phone Unavailable Primary Care Provider Unavailable Encounter Details Date Type Department Care Team Description 08/31/2016 Hospital Encounter HX [facility] Marsha Henriquez M.D. [address] [place], [place] [address] (Wo rk) Social History Tobacco Use Types Packs/Day Years Used Date Smoking Tobacco: Never Sex Assigned at Date Recorded Not on file documented as of this encounter Last Filed Vital Signs Vital Sign Reading Time Taken Comments Blood Pressure - - Pulse - - Temperature - - Respiratory Rate - - Oxygen Saturation - - Inhaled Oxygen Concentration - - Weight - - Height 146 cm (4' 9.48) 08/31/2016 7:25 AM TRANSFER IRON OPERATOR Body Mass Index - - documented in this encounter Medications at Time of [...] documented as of this encounter Miscellaneous Notes Miscellaneous - Wali Mcclellan, RViktor - 08/31/2016 9:09 AM CST Anticoagulation Patient Intake Anticoagulation Patient Intake Entered On: 08/31/2016 9:18 TRANSFER IRON OPERATOR Performed On: 08/31/2016 9:09 TRANSFER IRON OPERATOR by WALI MCCLELLAN RN Plan INR goal range : 2.0 - 3.0 Duration of Therapy : Lifelong Tablet Size : 2 mg, 5 mg WALI MCCLELLAN RN - 08/31/2016 9:09 TRANSFER IRON OPERATOR Anticoagulation Management Plan Grid Date : 09/05/2013 CDT 10/03/2013 CDT 11/07/2013 CDT 12/12/2013 CDT Location of INR sample : Clinic Lab Lab Lab Type of Sample : Venous Venous Venous Venous INR Result : 2.65 2.53 3.05 3.56 Warfarin Dose : 5mg Mon, Wed, Fri, & 2.5mg all other days 5mg Mon,Wed,Fri and 2.5mg all other days 5mg Mon, Wed & Fri, 2.5mg all other days 5mg Mon, Wed, Fri, 2.5mg all other days Total Weekly Warfarin Dose : 25 25 25 25 Comment : ly/called to Mom/Fabiola called to Mom/Fabiola,no changes,they will be gone in 4wks will checkin 5wks Called to Mom/Fabiola, no changes called to Mom/Fabiola, no changes/HOLD tonight then resume as before Recommend Recheck : One month Other: 5 weeks Other: 5 weeks Two weeks Plan completed by : darya BURGESS JM WALI Ervin RN - 08/31/2016 9:09 TRANSFER IRON OPERATOR WALI MCCLELLAN RN - 08/31/2016 9:09 TRANSFER IRON OPERATOR WALI MCCLELLAN RN - 08/31/2016 9:09 TRANSFER IRON OPERATOR WALI MCCLELLAN RN - 08/31/2016 9:09 TRANSFER IRON OPERATOR Date : 12/26/2013 CDT 01/30/2014 CDT 03/06/2014 CDT 03/10/2014 CDT Location of INR sample : Lab Lab Lab Lab Type of Sample : Venous Venous Venous Venous INR Result : 2.79 2.7 4.8 3.1 Warfarin Dose : 5mg mon/wed/mon and 2.5mg all other days 5mg Mon/Wed/Mon, 2.5mg all other days HOLD 03/06, 2.5mg 03/07, 03/08, 03/09 5mg M,W,F and 2.5mg all other days Total Weekly Warfarin Dose : 25 25 25 Comment : called to Fabiola called to Fabiola called to Fabiola, no changes, did have a pimple a couple ofweeks ago that bled for a long time, no bleeding now left msg for Fabiola,call if changes Recommend Recheck : Other: 5 weeks Other: 5 weeks Other: 03/10/2014 Other: 03/20/14 Plan completed by : WALI Davidson RN - 08/31/2016 9:09 TRANSFER IRON OPERATOR WALI MCCLELLAN RN - 08/31/2016 9:09 TRANSFER IRON OPERATOR WALI MCCLELLAN RN - 08/31/2016 9:09 TRANSFER IRON OPERATOR WALI MCCLELLAN RN - 08/31/2016 9:09 TRANSFER IRON OPERATOR Date : 03/20/2014 CDT 03/27/2014 CDT 04/10/2014 CDT 04/12/2014 CDT Location of INR sample : Lab Lab Lab Lab Type of Sample : Venous Venous Venous INR Result : 3.8 3.2 5.3 2.9 Warfarin Dose : HOLD 03/20, then 5mg Mon/Wed, 2.5mg all other days 5mg Mon/Wed, 2.5mg all other days Hold 04/10-04/11 5 mg mondays, 2.5 mg all other days Total Weekly Warfarin Dose : 22.5 Comment : called to Mom, she is going to check with Hue to see if she is drinking Cranberry Splash Sprite called to Mom, no changes,not drinking Cranberry Splash, try dec as noted Called to mom, nochanges to meds has been drinking grape juice. no bleeding. no vitamin K per Dr. Duarte. dose consultwith Ag[facility]/Pharmacy. instructed to be seen if bleeding occurs. called mom, Recommend Recheck : One week Two weeks Two days One day, Other: Plan completed by : darya lackey [facility]/pharmacy WALI MCCLELLAN RN - 08/31/2016 9:09 TRANSFER IRON OPERATOR WALI MCCLELLAN RN - 08/31/2016 9:09 WALI REYNOLDS RN - 08/31/2016 9:09 WALI REYNOLDS RN - 08/31/2016 9:09 TRANSFER IRON OPERATOR Date : 04/17/2014 CDT 04/24/2014 CDT 05/01/2014 TRANSFER IRON OPERATOR 05/15/2014 TRANSFER IRON OPERATOR Location of INR sample : Lab Lab Lab Lab Type of Sample : Venous Venous Venous Venous INR Result : 2.2 3.0 2.4 1.8 Warfarin Dose : 5mg Mon, 2.5mg all other days 5mg MON with 2.5mg all other days - eat a salad today 5mg Mon and 2.5mg all other days 5mg 05/15 then 5mg Mon, 2.5mg all other days Total Weekly Warfarin Dose : 20 20 20 20 Comment : Called to mom/Fabiola, no changes, mom wondering if when splitting the pills not cut exactlyin half so may have gotten extra some days, mom looked at pills & recut them if needed, will trynoted dose called to mom Fabiola [phone] called to Fabioal/no changes Called to mother/Fabiola, not awareof any changes Recommend Recheck : One week One week Two weeks Two weeks Plan completed by : WALI CHOI RN - 08/31/2016 9:09 WALI REYNOLDS RN - 08/31/2016 9:09 WALI REYNOLDS RN - 08/31/2016 9:09 WALI REYNOLDS RN - 08/31/2016 9:09 TRANSFER IRON OPERATOR Date : 06/03/2014 TRANSFER IRON OPERATOR 06/05/2014 TRANSFER IRON OPERATOR 06/10/2014 TRANSFER IRON OPERATOR 06/11/2014 TRANSFER IRON OPERATOR Location of INR sample : Lab Type of Sample : Venous INR Result : 2.1(05/29) Warfarin Dose : 5mg Mon and 2.5mg all other days 5mg Mon and 2.5mg all other days 5mg 06/11 & 2.5mg 06/12 Total Weekly Warfarin Dose : 20 20 Comment : Processed 06/03/14 due to result not received in INR clinic. Pt was in ER 05/29. Having cholecystectomy 06/11. Will have pre-op 06/09. Will message Dr. Henriquez to check about when to stop coumadin and if bridging needed. Called to mother/Fabiola. Per message from Dr. Henriquez, stop coumadin 5days prior to surgery (06/06) with no bridging. Called motherFabiola. Hue will be staying in [place] 2wks post-surgery & have INR drawn there. She will resume normal dosing after surgery. Preop today w/aranza Mckeon 06/11, to bridge w/Lovenox post surg, will restart Coumadin 06/11 andstart Lovenox 06/12(80mg 2x/d), to get INR 06/13, we are to call mother/Fabiola 06/11 to discuss Lovenox & set up INR Same day surgery nurse called. Given instructions for coumadin dosing. They will start lovenox tomorrow AM as ordered. INR in [place] for next several weeks as pt will be recovering there. Recommend Recheck : Other: depending on Dr. Henriquez's preop. Other: 06/18 Other: 06/13/14 Plan completed by : WALI TYLER RN - 08/31/2016 9:09 TRANSFER IRON OPERATOR WALI MCCLELLAN RN - 08/31/2016 9:09 TRANSFER IRON OPERATOR WALI MCCLELLAN RN - 08/31/2016 9:09 TRANSFER IRON OPERATOR WALI MCCLELLAN RN - 08/31/2016 9:09 TRANSFER IRON OPERATOR Date : 06/14/2014 TRANSFER IRON OPERATOR 06/14/2014 TRANSFER IRON OPERATOR 06/16/2014 TRANSFER IRON OPERATOR 06/23/2014 TRANSFER IRON OPERATOR Location of INR sample : Clinic Lab Lab Type of Sample : Venous Venous INR Result : 1.3 on 06/13 2.4 faxed from lab 2.0 Warfarin Dose : (pt took 2.5mg 06/13) 5mg Sat and 5mg Sun (06/14 and 06/15) 5mg Mon and 2.5mg all other days 5mg Mon and 2.5mg all other days Total Weekly Warfarin Dose : 20 20 Comment : [place] lab called with INR result from 06/13, reported they left a message with Dr. Henriquez and hadn't heard back, spoke with motherFabiola, and gave doses, continue Lovenox and repeat INR 06/16, message left with INR clinic in [place] to contact [facility] Please contact [facility] on 06/16 for result and may call Fabiola at [phone] with instructions call to Fabiola/will stop Lovenox injections and take noted dose/pt has an appt here in 06/23 so will do lab appt here that day Called to Fabiola/ Hue will be back at [facility] by next draw. will have done on . no changes to meds/diet. Recommend Recheck : Two days One week Two weeks Plan completed by : WALI Steven LM RN - 08/31/2016 9:09 TRANSFER IRON OPERATOR WALI MCCLELLAN RN - 08/31/2016 9:09 WALI REYNOLDS RN - 08/31/2016 9:09 TRANSFER IRON OPERATOR WALI MCCLELLAN RN - 08/31/2016 9:09 TRANSFER IRON OPERATOR Date : 07/10/2014 TRANSFER IRON OPERATOR 07/17/2014 TRANSFER IRON OPERATOR 07/31/2014 TRANSFER IRON OPERATOR 09/11/2014 CDT Location of INR sample : Lab Lab Lab Lab Type of Sample : Venous Venous Venous Venous INR Result : 1.9 2.2 3.0 1.8 Warfarin Dose : 5mg 07/10, then 5mg Mon, 2.5mg all other days 5mg Mon and 2.5mg all other days 5mg Mon, 2.5mg all other days 5mg today and then resume 5mg Mon and 2.5mg all other days Total Weekly Warfarin Dose : 20 20 20 20 Comment : called to Fabiola/Mom Called to Fabiola/Mom. No changes. called to Mom/Fabiola/No changes LMTC with changes for Fabiola/mom. Left orders on home machine. Letter sent via POS. Recommend Recheck : One week Two weeks Three weeks Two weeks Plan completed by : WALI Yarbrough RN - 08/31/2016 9:09 TRANSFER IRON OPERATOR WALI MCCLELLAN RN - 08/31/2016 9:09 TRANSFER IRON OPERATOR WALI MCCLELLAN RN - 08/31/2016 9:09 WALI REYNOLDS RN - 08/31/2016 9:09 TRANSFER IRON OPERATOR Date : 09/12/2014 CDT 09/25/2014 CDT 10/02/2014 CDT 10/09/2014 CDT Location of INR sample : Lab Lab Lab Type of Sample : Venous Venous Venous INR Result : 1.7 1.9 2.5 Warfarin Dose : 5mg Mon/Thurs, 2.5mg all other days 5mg Tues, Thurs & Sat, 2.5mg all other days 5mg Tues/Thurs/Sat, 2.5mg all other days Total Weekly Warfarin Dose : 22.5 25 25 Comment : Per mom, pt on Zpak last wk, no other changes, best to call mom on cell phone # per Mom/nochanges or missed doses Called to Mom/Fabiola, no changes, rev'd w/[facility]/Pharmacy called to Mom/Fabiola, no changes Recommend Recheck : Two weeks One week One week Two weeks Plan completed by : WALI Almaguer RN - 08/31/2016 9:09 TRANSFER IRON OPERATOR WALI MCCLELLAN RN - 08/31/2016 9:09 TRANSFER IRON OPERATOR WALI MCCLELLAN RN - 08/31/2016 9:09 TRANSFER IRON OPERATOR WALI MCCLELLAN RN - 08/31/2016 9:09 TRANSFER IRON OPERATOR Date : 10/23/2014 CDT 11/13/2014 CDT 11/20/2014 CDT 11/27/2014 CDT Location of INR sample : Lab Lab Lab Lab Type of Sample : Venous Venous Venous Venous INR Result : 2.6 5.1 4.5 2.1 Warfarin Dose : 5mg Tues/Thurs/Sat, 2.5mg all other days HOLD 11/13, then 5mg Tues/Sat, 2.5mg all other days HOLD 11/20, Then 2.5mg daily until recheck 5mg Thurs, 2.5mg all other days Total Weekly Warfarin Dose : 25 20 Comment : called to Mom/Fabiola, no changes called to Fabiola Hernandez, only change is she is 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 [employer]/no bleeding/consult with Quintin/Pharmacy and called Mom with orders Per Meredith Hernandez, no changes, has been drinking some Kiwi Juice, no bleeding/consult with Quintin/Pharmacy Called to mom /Fabiola, no changes, rev'd w/[facility]son/Pharmacy Recommend Recheck : Three weeks One week One week One week Plan completed by : WALI Skinner RN - 08/31/2016 9:09 TRANSFER IRON OPERATOR WALI MCCLELLAN RN - 08/31/2016 9:09 TRANSFER IRON OPERATOR WALI MCCLELLAN RN - 08/31/2016 9:09 TRANSFER IRON OPERATOR WALI MCCLELLAN RN - 08/31/2016 9:09 TRANSFER IRON OPERATOR Date : 12/04/2014 CDT 12/18/2014 CDT 01/15/2015 CDT 01/22/2015 CDT Location of INR sample : Lab Lab Lab Lab Type of Sample : Venous Venous Venous Venous INR Result : 2.1 2.1 1.6 2.4 Warfarin Dose : 5mg Thurs, 2.5mg all other days 5mg Thurs and 2.5mg all other days 7.5mg 01/15 then 5mg Mon & Thurs, 2.5mg all other days 5mg Mon & Thurs, 2.5mg all other days Total Weekly Warfarin Dose : 20 20 22.5 22.5 Comment : called to Mom/Fabiola/no changes or bleeding concerns LM on Fabiola's identified VM/to call ifchanges,questions or concerns Period this past wk & took Midol per mom/Fabiola, no Lovenox per Dr Henriquez, rev'd dose w/[facility]/Pharmacy Called to mom/Fabiola, no changes Recommend Recheck : Two weeks Three weeks One week Two weeks Plan completed by : WALI Cabrera RN - 08/31/2016 9:09 TRANSFER IRON OPERATOR WALI MCCLELLAN RN - 08/31/2016 9:09 TRANSFER IRON OPERATOR WALI MCCLELLAN RN - 08/31/2016 9:09 TRANSFER IRON OPERATOR WALI MCCLELLAN RN - 08/31/2016 9:09 TRANSFER IRON OPERATOR Date : 02/05/2015 CDT 02/26/2015 CDT 03/05/2015 CDT 03/19/2015 CDT Location of INR sample : Lab Lab Lab Lab Type of Sample : Venous Venous Venous Venous INR Result : 2.6 3.8 2.9 2.6 Warfarin Dose : 5mg Mon and Thurs and 2.5mg all other days Hold 02/26, then 5mg Mon & Thurs, 2.5mgall other days 5mg Mon & Thurs, 2.5mg all other days 5mg Mon & Thurs, 2.5mg all other days Total Weekly Warfarin Dose : 22.5 22.5 22.5 22.5 Comment : Called to Mom/Fabiola,no changes Called to Mom/Fabiola, had period last wk & took some Midol, no other changes/bleeding Called to Mom/Fabiola, no changes Called to Mom/Fabiola, no changes Recommend Recheck : Other: 02/26/15 One week Two weeks Three weeks Plan completed by : WALI LAWRENCE RN - 08/31/2016 9:09 TRANSFER IRON OPERATOR WALI MCCLELLAN RN - 08/31/2016 9:09 WALI REYNOLDS RN - 08/31/2016 9:09 WALI REYNOLDS RN - 08/31/2016 9:09 TRANSFER IRON OPERATOR Date : 04/09/2015 CDT 05/07/2015 TRANSFER IRON OPERATOR 06/04/2015 TRANSFER IRON OPERATOR 07/02/2015 TRANSFER IRON OPERATOR Location of INR sample : Lab Lab Lab Lab Type of Sample : Venous Venous Venous Venous INR Result : 2.7 2.4 2.4 2.4 Warfarin Dose : 5mg Mon/Thurs, 2.5mg all other days 5mg Mon/Thurs, 2.5mg all other days 5mg Mon & Thurs, 2.5mg all other days 5mg Mon/Thurs and 2.5mg all other days Total Weekly Warfarin Dose : 22.5 22.5 22.5 22.5 Comment : called to Mom/Fabiola, no changes Orders given and lmtc if changes on Mom/Fabiola's identifiedVM, Orders called to Mom/Fabiola, no changes Orders called to Fabiola/mother. No changes. Recommend Recheck : One month One month One month Other: 5 weeks Plan completed by : WALI Nelson RN - 08/31/2016 9:09 WALI REYNOLDS RN - 08/31/2016 9:09 WALI REYNOLDS RN - 08/31/2016 9:09 WALI REYNOLDS RN - 08/31/2016 9:09 TRANSFER IRON OPERATOR Date : 08/06/2015 TRANSFER IRON OPERATOR 09/17/2015 CDT 10/29/2015 CDT 11/12/2015 CDT Location of INR sample : Lab Clinic Lab Lab Type of Sample : Venous Capillary/POC Venous Venous INR Result : 2.7 2.8 3.3 3.1 Warfarin Dose : 5mg Mon/Thurs and 2.5mg all other days 5mg Mon & Thurs, 2.5mg all other days 2.5mg today instead of 5mg, then 5mg Mon/Thurs, 2.5mg all other days 5mg Mon, 2,5mg all other days Total Weekly Warfarin Dose : 22.5 22.5 22.5 20 Comment : Orders called to Fabiola/mother. No changes. Called to Mom/Fabiola, no changes called to Mom/Fabiola, no changes Called to Mom/Fabiola, no changes, will try dec Recommend Recheck : Six weeks Six weeks Two weeks One week Plan completed by : WALI Toussaint RN - 08/31/2016 9:09 TRANSFER IRON OPERATOR WALI MCCLELLAN RN - 08/31/2016 9:09 TRANSFER IRON OPERATOR WALI MCCLELLAN RN - 08/31/2016 9:09 TRANSFER IRON OPERATOR WALI MCCLELLAN RN - 08/31/2016 9:09 TRANSFER IRON OPERATOR Date : 11/19/2015 CDT 12/03/2015 CDT 12/31/2015 CDT 01/28/2016 CDT Location of INR sample : Lab Lab Lab Lab Type of Sample : Venous Venous Venous Venous INR Result : 2.3 2.7 3.1 2.5 Warfarin Dose : 5mg Mon, 2.5mg all other days 5mg Mon, 2.5mg all other days 5mg Mon, 2.5mg all otherdays 5mg Mon, 2.5mg all other days Total Weekly Warfarin Dose : 20 20 20 20 Comment : called to Mom/Fabiola, no changes Called to Mom/Fabiola, no changes Called to Mom/Fabiola, no changes Called to Mom/Fabiola, no changes Recommend Recheck : Two weeks One month One month One month Plan completed by : WALI Will RN - 08/31/2016 9:09 TRANSFER IRON OPERATOR WALI MCCLELLAN RN - 08/31/2016 9:09 TRANSFER IRON OPERATOR WALI MCCLELLAN RN - 08/31/2016 9:09 WALI REYNOLDS RN - 08/31/2016 9:09 TRANSFER IRON OPERATOR Date : 02/19/2016 CDT 02/20/2016 CDT 02/21/2016 CDT 02/22/2016 CDT Location of INR sample : [facility] Type of Sample : Venous Venous Venous Venous INR Result : 4,72 4.76 3.01 2.46 Warfarin Dose : No warfarin today No warfarin today 2.5 ng x1 2.5 mg Total Weekly Warfarin Dose : Comment : No warfarin today and recheck INR tomorrow. No warfarin today and recheck INR tomorrow. INR improving and expect to drop from 2 held doses. Pt on Zosyn. give 2.5 mg today and recheck inr tomorrow Recommend Recheck : One day One day One day One day Plan completed by : Tyshawn Brizuela, PharmMichaelDMichael Brizuela PharmBrett. BAUDILIO, PharmD Eliseo Quezada, ReaD. WALI MCCLELLAN RN - 08/31/2016 9:09 TRANSFER IRON OPERATOR WALI MCCLELLAN RN - 08/31/2016 9:09 TRANSFER IRON OPERATOR WALI MCCLELLAN RN - 08/31/2016 9:09 TRANSFER IRON OPERATOR WALI MCCLELLAN RN - 08/31/2016 9:09 TRANSFER IRON OPERATOR Date : 02/23/2016 CDT 02/24/2016 CDT 02/25/2016 CDT 02/26/2016 CDT [facility] Type of Sample : Venous Venous Venous Venous INR Result : 2.45 2.85 2.14 2.02 Warfarin Dose : 2.5 mg 1mg 2.5 mg 2 mg Total Weekly Warfarin Dose : Comment : give 2.5 mg today and recheck INR tomorrow give 1 mg today and recheck INR tomorrow INR drawn at 1230 (late). Give 2.5 mg today and recheck INR tomorrow. give 2 mg today and recheck INR tomorrow. Bactrim DS BID initiated today. Recommend Recheck : One day One day One day One day Plan completed by : Eliseo uQezada, PharmValentina. Eliseo Quezada, PharmD. Tyshawn Brizuela, Pharm.DMichael Quezada, PharmD. WALI MCCLELLAN RN - 08/31/2016 9:09 TRANSFER IRON OPERATOR WALI MCCLELLAN RN - 08/31/2016 9:09 TRANSFER IRON OPERATOR WALI MCCLELLAN RN - 08/31/2016 9:09 TRANSFER IRON OPERATOR WALI MCCLELLAN RN - 08/31/2016 9:09 TRANSFER IRON OPERATOR Date : 02/27/2016 CDT 03/01/2016 CDT 03/04/2016 CDT 03/07/2016 CDT Location of INR sample [facility] Type of Sample : Venous Capillary/POC Venous Capillary/POC INR Result : 2.07 2.5 2.2 2.4 Warfarin Dose : 2 mg daily 2mg daily 2.5mg 03/04-03/06 2.5mg Mon,Sat,Sun Total Weekly Warfarin Dose : 14 15.5 Comment : Pt being discharged on Bactrim. Will pickling solution maker rx for 2 mg tabs On bactrim 2 days left, has f/u in [place] on Monday. Pt mother states plan to return to [facility] on 03/06. next f[place]. 2mg TuWTh Rev'd with Jelly/Pharmacist,called to mom/Fabiola pt done with Bactrizuri Henriquez today pt is going back to [place] with mom for another 1-2wks,she would like INR checked in [place] but [place] INR Clinic to follow will send msg to INR Clinic Stay on 2.5mg daily Recommend Recheck : Three days Three days, Other: in [place] Other: 03/07/16 Other: 4 days Plan completed by : WALI Cartagena RN, RN, RN - 08/31/2016 9:09 TRANSFER IRON OPERATOR WALI MCCLELLAN RN - 08/31/2016 9:09 WALI REYNOLDS RN - 08/31/2016 9:09 WALI REYNOLDS RN - 08/31/2016 9:09 TRANSFER IRON OPERATOR Date : 03/11/2016 CDT 03/16/2016 CDT 03/31/2016 CDT 04/28/2016 CDT Location of INR sample : Lab Lab Lab Lab Type of Sample : Venous Venous Venous Venous INR Result : 2.2 2.4 2.0 1.7 Warfarin Dose : 2.5mg daily 2.5mg daily 2.5mg daily Take 5mg today then resume 2.5mg daily Total Weekly Warfarin Dose : 17.5 17.5 17.5 Comment : INR drawn in [facility] faxed to us,called to mom/Fabiola,no changes pt will be staying with sister in [facility] next week she will have INR drawn in [place] again called to Fabiola/pt to do next INR at [facility] on a ./no changes called to Fabiola/no changes called to Fabiola/Mom,no changes/missed doses Recommend Recheck : Other: 03/16/16 Other: 03/31/16(2 weeks) One month Two weeks Plan completed by : WALI Segura RN - 08/31/2016 9:09 WALI REYNOLDS RN - 08/31/2016 9:09 WALI REYNOLDS RN - 08/31/2016 9:09 WALI REYNOLDS RN - 08/31/2016 9:09 TRANSFER IRON OPERATOR Date : 05/11/2016 TRANSFER IRON OPERATOR 05/12/2016 TRANSFER IRON OPERATOR 05/17/2016 TRANSFER IRON OPERATOR 05/24/2016 TRANSFER IRON OPERATOR Location of INR sample : Other: [facility] [place] Other: [place] Other: [place] Type of Sample : INR Result : 1.6 2.4 1.8 Warfarin Dose : 2.5mg daily 2.5mg daily 5mg 05/24 then 2.5mg daily Total Weekly Warfarin Dose : 17.5 Comment : Per Mom/Fabiola, pt disch from [facility], fell & fx left humerus 05/08, surg 05/09, INR 1.3 on 05/08, 1.5 on 05/09, 1.6 on 05/10 & 1.4 05/11, has had 2.5mg daily since 05/09, going to for INR 05/12 & result to be faxed to us, not on Lovenox rev'd with JimPharmacist,called to mom/Fabiola,she will have it done in [place] again Tues Called to Mom/Fabiola, no changes Called to Mom/Fabiola, no missed doses, took pain pill last night, has not taken any for a while, no other changes Recommend Recheck : Other: 05/12/16 Other: 05/17/16 One week One week Plan completed by : WALI REIS RN - 08/31/2016 9:09 WALI REYNOLDS RN - 08/31/2016 9:09 WALI REYNOLDS RN - 08/31/2016 9:09 WALI REYNOLDS RN - 08/31/2016 9:09 TRANSFER IRON OPERATOR Date : 06/01/2016 TRANSFER IRON OPERATOR 06/06/2016 TRANSFER IRON OPERATOR 06/10/2016 TRANSFER IRON OPERATOR 06/13/2016 TRANSFER IRON OPERATOR Location of INR sample : Other: [place] Other: [facility] Other: [facility] Type of Sample : INR Result : 1.6 1.4 1.6 2.2 Warfarin Dose : 5mg 06/02, 2.5mg 06/03, 06/04, 12/11 5mg 06/06 & 06/07,2.5mg 06/08 & 06/09 5mg16, 06/11, 2.5mg 06/12 2.5mg Mon,Wed,fri and 5mg all other days Total Weekly Warfarin Dose : Comment : processed 06/02/had 2.5mg last night/called to Mom/Fabiola, no changes rev'd with [place]/Pharmacist,called to mom/Fabiola pt is staying with sister no changes she is aware of will be back 06/10 rev'd with Quintin/Pharmacy/called to Fabiola Hernandez rev'd with Prasad/Phaaugustinecist,called to mom Recommend Recheck : Other: 06/06/2016 Other: 06/10/16 Three days Other: 06/17/16 Plan completed by : WALI Mckay RN - 08/31/2016 9:09 TRANSFER IRON OPERATOR WALI MCCLELLAN RN - 08/31/2016 9:09 TRANSFER IRON OPERATOR WALI MCCLELLAN RN - 08/31/2016 9:09 TRANSFER IRON OPERATOR WALI MCCLELLAN RN - 08/31/2016 9:09 TRANSFER IRON OPERATOR Date : 06/17/2016 TRANSFER IRON OPERATOR 06/24/2016 TRANSFER IRON OPERATOR 07/07/2016 TRANSFER IRON OPERATOR 07/28/2016 TRANSFER IRON OPERATOR Location of INR sample : Other: [facility] CF Other: [facility] Lab Lab Type of Sample : Venous Venous INR Result : 2.7 2.4 2.5 3.1 Warfarin Dose : 5mg Sun, Tues & Thurs, 2.5mg all other days 5mg Sun, Tues & Thurs, 2.5mg allother days 5mg Sun,Tues,Thurs and 2.5mg all other days Take 2.5mg tonight then resume 5mg Sun/Tues/Thurs and 2.5mg all other days Total Weekly Warfarin Dose : 25 25 25 25 Comment : Called to Mom/Fabiola, no changes, rev'd w/[place]/Pharmacy, will try noted dose, [place]23 Called to Mom/Fabiola, no changes, will be back in [place] for next INR left msg for mom/Fabiola,call if changes/?'s called to mom/Fabiola,no changes,pt is having tooth pulled 08/31/16 at [facility] Oral Surgery will need INR checked that am scheduled.[facility] what [facility] needs leon Recommend Recheck : One week Other: 07/07/16 Three weeks Two weeks Plan completed by : WALI GIBBS RN - 08/31/2016 9:09 TRANSFER IRON OPERATOR WALI MCCLELLAN RN - 08/31/2016 9:09 TRANSFER IRON OPERATOR WALI MCCLELLAN RN - 08/31/2016 9:09 TRANSFER IRON OPERATOR WALI MCCLELLAN RN - 08/31/2016 9:09 TRANSFER IRON OPERATOR Date : 08/11/2016 TRANSFER IRON OPERATOR 08/31/2016 TRANSFER IRON OPERATOR Location of INR sample : Lab Lab Type of Sample : Venous Venous INR Result : 2.8 2.5 Warfarin Dose : 5mg Sun/Tues/Thus and 2.5mg all other days 5mg Sun, Tues & Thurs, 2.5mg all other days Total Weekly Warfarin Dose : 25 25 Comment : called to mom/Fabiola,no changes,having tooth pulled 08/31 INR to be below 2.5-3.0 per oral surgeon letter,suggested a INR check couple days before but per mom too hard to get pt to clinic for lab Called to Mom/Fabiola, called to oral surgeon's office and result faxed Recommend Recheck : Other: 08/31/16 One month Plan completed by : WALI TIDWELL RN - 08/31/2016 9:09 TRANSFER IRON OPERATOR WALI MCCLELLAN RN - 08/31/2016 9:09 TRANSFER IRON OPERATOR Anticoagulation Assessment / History Visit : Phone management Plan of Care Date : 01/29/2008 CDT Primary Physician Anticoagulation : TASHA HENRIQUEZ MD 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 - 08/31/2016 8:32 AM CST Results Notification Document Contains Addenda Addendum by WALI MCCLELLAN RN on August 31, 2016 09:26:20 TRANSFER IRON OPERATOR Orders called to David/Fabiola. From: WALI MCCLELLAN RN ( Anticoagulation Nurse) To: Anticoagulation Nurse; Sent: 08/31/2016 08:32:47 TRANSFER IRON OPERATOR Show up: 08/31/2016 08:33:00 TRANSFER IRON OPERATOR Subject: Results Notification Results: Date Result Name Value Ref Range 08/31/2016 07:30 PT 27.3 second(s) (8.8 - 11.9) 08/31/2016 07:30 INR 2.5 (0.9 - 1.2) Source: [facility] POWERCHART Document Id: [id number] Electronically signed by Conversion, [facility] Interior Design Professor [id number] at 12/06/2016 5:17 AM CDT documented in this encounter Plan of Treatment Not on filedocumented as of this encounter Procedures Procedure Name Priority Date/Time Associated Comments Diagnosis PROTHROMBIN TIME Routine 08/31/2016 7:30 AM Resul ts for this (PT), P TRANSFER IRON 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 documented in this encounter Results (ABNORMAL) PT (Prothrombin Time) with INR (08/31/2016 7:30 AM TRANSFER IRON OPERATOR) [facility] Method Time Signature Prothrombin 27.3 (H) 8.8 - 11.9 POWERCHART Time, P SECONDS INR 2.5 (H) 0.9 - 1.2 POWERCHART Comment: Recommended INR for prophylaxis/treatmen t of Venous Thrombosis, Pulmonary Embolism, Myocardial Infarction, and Embolism from Atrial Fibrillation is 2.0- 3.0 (Standard Therapy) Recommended INR for Mechanical Heart Tejal ves and recurrent Systemic Embolism is 2.5-3.5 (Intensive Therapy) Specimen (Source) Anatomical Collection Method Collection Time Re ceived Time Location / / Volume Laterality Blood 08/31/2016 7:30 AM TRANSFER IRON OPERATOR Tasha Henriquez M.D. LAB BLOOD ADD-ON Performing Organization Address City/State/ZIP Code Phon e Number POWERCHART documented in this encounter Visit Diagnoses Not on filedocumented in this encounter
--- OUTSIDE RECORDS SUMMARY | 2022-04-25 15:59 | XMS_ITS | Encounter Summary ---
:1975 Author Organization [facility] Address [address] [place] [address] Care Team Providers Name Role Phone Sridhar Garibay M.D. Primary Care Provider Encounter Details Date Type Department Care Team Description 05/11/2017 Hospital Encounter Department of Phoebe Garibay [facility] and Laboratory Medicine Sridhar Helton M.D. thrombosis of in [place], [address] unspecified deep [place], [place] veins of unspecified [address] [address] lower extremity (HCC) [place], [place] [phone] (Work) [phone] Social History Tobacco Use Types Packs/Day Years [...] Associated Diagnosis Comme nts PROTHROMBIN TIME Routine 05/11/2017 8:00 AM Acute Embolism And Results for this (PT), P DIAGRAMMER Thrombosis Of procedure are in Unspecified Deep the results Veins Of Unspecified section . Lower Extremity (Hcc) documented in this encounter Results (ABNORMAL) PT (Prothrombin Time) with INR (05/11/2017 8:00 AM DIAGRAMMER) [facility] Method Time Signature Prothrombin 40.5 (H) 8.8 - 11.9 05/11/2017 [facility] Time, P sec 10:03 AM [facility] 3.5 0.9 - 1.2 05/11/2017 [facility] 10:03 AM [facility] LAB Comment: Standard intensity warfarin therapeutic range: 2.0 to 3.0 High intensity warfarin therapeutic rang e: 2.5 to 3.5 Specimen Anatomical Collection Method Collection Time Receive d Time (Source) Location / / Volume Laterality Blood 05/11/2017 8:00 AM 7 9:36 DIAGRAMMER AM DIAGRAMMER Sridhar Garibay M.D. 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 PCP - General 12/08/16 05/23/18 [address] [place] [phone] documented as of this encounter
--- OUTSIDE RECORDS SUMMARY | 2022-04-25 15:59 | XMS_ITS | Encounter Summary ---
:1975 Author Organization [facility] Address [address] [place] [address] Care Team Providers Name Role Phone Sridhar Garibay M.D. Primary Care Provider Encounter Details Date Type Department Care Team Description 02/16/2017 Hospital Encounter HX [facility] Marsha Garibay M.D. [address] [place], [place] [address] (Wo rk) Social History [...] - - Height 146 cm (4' 9.48) 02/16/2017 7:29 AM CDT Body Mass Index - - documented in [...] on filedocumented in this encounter Care Teams Engineer Station Mainline Relationship Specialty Start Date End Date Sridhar Garibay M.D. PCP - General 12/08/16 05/23/18 [address] [place] [phone] documented as of this encounter
--- OUTSIDE RECORDS SUMMARY | 2022-04-25 15:59 | XMS_ITS | Encounter Summary ---
:[address] [facility] Address [address] [place] [address] Care Team Providers Name Role Phone Tasha Henriquez M.D. Primary Care Provider Encounter Details Date Type Department Care Team Description 03/30/2017 Hospital Encounter HX [facility] Marsha Henriquez M.D. [address] [place], [place] [address] (Wo rk) Social History [...] - - Height 146 cm (4' 9.48) 03/30/2017 9:06 AM CDT Body Mass Index - - [...] 1 Refill(s) documented as of this encounter Miscellaneous Notes Miscellaneous - Hanna Truong R.N. - 03/30/2017 10:28 AM CDT Anticoagulation Patient Intake Anticoagulation Patient Intake Entered On: 03/30/2017 10:29 CDT Performed On: 03/30/2017 10:28 CDT by HANNA TRUONG RN Plan INR goal range : 2.0 - 3.0 Duration of Therapy : Lifelong Tablet Size : 2 mg, 5 mg HANNA TRUONG RN - 03/30/2017 10:28 CDT Anticoagulation Management Plan Grid Date : 09/05/2013 [...] weeks Two weeks Plan completed by : HANNA Ann RN - 03/30/2017 10:28 CDT HANNA TRUONG RN - 03/30/2017 10:28 CDT HANNA TRUONG RN - 03/30/2017 10:28 CDT HANNA TRUONG RN - 03/30/2017 10:28 CDT Date : 12/26/2013 CDT 01/30/2014 CDT 03/06/2014 CDT 03/10/2014 CDT Location of INR sample : Lab Lab Lab Lab Type of Sample : Venous Venous Venous Venous INR Result : 2.79 2.7 4.8 3.1 Warfarin Dose : 5mg mon/wed/fri and 2.5mg all other days 5mg Mon/Wed/Mon, 2.5mg all other days HOLD 03/06, 2.5mg 03/07, 03/08, 03/09 5mg M,W,F and 2.5mg all other days Total Weekly Warfarin Dose : 25 25 25 Comment : called to Fabiola called to Fabiola called to Fabiola, no changes, did have a pimple a couple ofweeks ago that bled for a long time, no bleeding [place] [facility] [place]call if changes Recommend Recheck : Other: 5 weeks Other: 5 weeks Other: 03/10/2014 Other: 03/20/14 Plan completed by : HANNA Eubanks RN - 03/30/2017 10:28 CDT HANNA TRUONG RN - 03/30/2017 10:28 CDT HANNA TRUONG RN - 03/30/2017 10:28 CDT HANNA TRUONG RN - 03/30/2017 10:28 CDT Date : 03/20/2014 CDT 03/27/2014 CDT 04/10/2014 [...] Other: Plan completed by : darya lackey LM /pharmacy HANNA TRUONG RN - 03/30/2017 10:28 CDT HANNA TRUONG RN - 03/30/2017 10:28 CDT HANNA TRUONG RN - 03/30/2017 10:28 CDT HANNA TRUONG RN - 03/30/2017 10:28 CDT Date : 04/17/2014 CDT 04/24/2014 CDT 05/01/2014 SALT CUTTER 05/15/2014 SALT CUTTER Location of INR sample : Lab Lab [...] will trynoted dose called to mom Fabiola [phone] called to Fabiola/no changes Called to mother/Fabiola, not awareof any changes Recommend Recheck : One week One week Two weeks Two weeks Plan completed by : HANNA CLAY RN - 03/30/2017 10:28 CDT HANNA TRUONG RN - 03/30/2017 10:28 CDT HANNA TRUONG RN - 03/30/2017 10:28 CDT HANNA TRUONG RN - 03/30/2017 10:28 CDT Date : 06/03/2014 SALT CUTTER 06/05/2014 SALT CUTTER 06/10/2014 SALT CUTTER 06/11/2014 SALT CUTTER Location of INR sample : Lab Type [...] Called motherFabiola. Hue will be staying in [place] 2wks post-surgery & have INR drawn there. [...] lovenox tomorrow AM as ordered. INR in [place] for next several weeks as pt will be recovering there. Recommend Recheck : Other: depending on Dr. Henriquez's preop. Other: 06/18 Other: 06/13/14 Plan completed by : HANNA MARTIN RN - 03/30/2017 10:28 CDT HANNA TRUONG RN - 03/30/2017 10:28 CDT HANNA TRUONG RN - 03/30/2017 10:28 CDT HANNA TRUONG RN - 03/30/2017 10:28 CDT Date : 06/14/2014 SALT CUTTER 06/14/2014 SALT CUTTER 06/16/2014 SALT CUTTER 06/23/2014 SALT CUTTER Location of INR sample : Clinic Lab Lab Type of Sample : Venous Venous INR Result : 1.3 on 06/13 2.4 faxed from [facility] lab 2.0 Warfarin Dose : (pt took 2.5mg 06/13) 5mg Sat and 5mg Sun (06/14 and 06/15) 5mg Mon and 2.5mg all other days 5mg Mon and 2.5mg all other days Total Weekly Warfarin Dose : 20 20 Comment : [place] lab called with INR result from 06/13, reported they left a message with Dr. Henriquez and hadn't heard back, spoke with mother, Fabiola, and gave doses, continue Lovenox and repeat INR 06/16, message left with INR clinic in [place] to contact [facility] Please contact [place] lab on 06/16 for result and may call Fabiola at [phone] with instructions call to Fabiola/will stop Lovenox injections and take noted dose/pt has an appt here in [place] 06/23 so will do lab appt here that day Called to Fabiola/ Hue will be back at [facility] by next draw. will have done on . no changes to meds/diet. Recommend Recheck : Two days One week Two weeks Plan completed by : latasha OZZY HANNA URIOSTEGUI RN - 03/30/2017 10:28 CDT HANNA TRUONG RN - 03/30/2017 10:28 CDT HANNA TRUONG RN - 03/30/2017 10:28 CDT HANNA TRUONG RN - 03/30/2017 10:28 CDT Date : 07/10/2014 SALT CUTTER 07/17/2014 SALT CUTTER 07/31/2014 SALT CUTTER 09/11/2014 CDT Location of INR sample : [...] weeks Two weeks Plan completed by : HANNA Krishnan RN - 03/30/2017 10:28 CDT HANNA TRUONG RN - 03/30/2017 10:28 CDT HANNA TRUONG RN - 03/30/2017 10:28 CDT HANNA TRUONG RN - 03/30/2017 10:28 CDT Date : 09/12/2014 CDT 09/25/2014 CDT 10/02/2014 [...] doses Called to Mom/Fabiola, no changes, rev'd w/[place]/Pharmacy called to Mom/Fabiola, no changes Recommend Recheck : Two weeks One week One week Two weeks Plan completed by : HANNA Santos RN - 03/30/2017 10:28 CDT HANNA TRUONG RN - 03/30/2017 10:28 CDT HANNA TRUONG RN - 03/30/2017 10:28 CDT HANNA TRUONG RN - 03/30/2017 10:28 CDT Date : 10/23/2014 CDT 11/13/2014 CDT 11/20/2014 [...] : 25 20 Comment : called to David/Fabiola, no changes called to Fabiola Hernandez, 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/no bleeding/consult with Quintin/Pharmacy and called Mom with orders Per Meredith Hernandez, no changes, has been drinking some Kiwi Juice, no bleeding/consult with Quintin/Pharmacy Called to mom /Fabiola, no changes, rev'd w/BCarlson/Pharmacy Recommend Recheck : Three weeks One week One week One week Plan completed by : HANNA Cottrell RN - 03/30/2017 10:28 CDT HANNA TRUONG RN - 03/30/2017 10:28 CDT HANNA TRUONG RN - 03/30/2017 10:28 CDT HANNA TRUONG RN - 03/30/2017 10:28 CDT Date : 12/04/2014 CDT 12/18/2014 CDT 01/15/2015 [...] this past wk & took Midol per mom/Faboila, no Lovenox per Dr Henriquez, rev'd dose w/LZorn/Pharmacy Called to mom/Fabiola, no changes Recommend Recheck : Two weeks Three weeks One week Two weeks Plan completed by : HANNA Healy RN - 03/30/2017 10:28 CDT HANNA TRUONG RN - 03/30/2017 10:28 CDT HANNA TRUONG RN - 03/30/2017 10:28 CDT HANNA TRUONG RN - 03/30/2017 10:28 CDT Date : 02/05/2015 CDT 02/26/2015 CDT 03/05/2015 [...] weeks Three weeks Plan completed by : HANNA PÉREZ RN - 03/30/2017 10:28 CDT HANNA TRUONG RN - 03/30/2017 10:28 CDT HANNA TRUONG RN - 03/30/2017 10:28 CDT HANNA TRUONG RN - 03/30/2017 10:28 CDT Date : 04/09/2015 CDT 05/07/2015 SALT CUTTER 06/04/2015 SALT CUTTER 07/02/2015 SALT CUTTER Location of INR sample : Lab Lab [...] Other: 5 weeks Plan completed by : HANNA Masters RN - 03/30/2017 10:28 CDT HANNA TRUONG RN - 03/30/2017 10:28 CDT HANNA TRUONG RN - 03/30/2017 10:28 CDT HANNA TRUONG RN - 03/30/2017 10:28 CDT Date : 08/06/2015 SALT CUTTER 09/17/2015 CDT 10/29/2015 CDT 11/12/2015 CDT Location [...] weeks One week Plan completed by : HANNA Frazier RN - 03/30/2017 10:28 CDT HANNA TRUONG RN - 03/30/2017 10:28 CDT HANNA TRUONG RN - 03/30/2017 10:28 CDT HANNA TRUONG RN - 03/30/2017 10:28 CDT Date : 11/19/2015 CDT 12/03/2015 CDT 12/31/2015 [...] month One month Plan completed by : HANNA Johnson RN - 03/30/2017 10:28 CDT HANNA TRUONG RN - 03/30/2017 10:28 CDT HANNA TRUONG RN - 03/30/2017 10:28 CDT HANNA TRUONG RN - 03/30/2017 10:28 CDT Date : 02/19/2016 CDT 02/20/2016 CDT 02/21/2016 CDT 02/22/2016 CDT Location of INR sample : [facility] Type of Sample : Venous [...] day Plan completed by : Tyshawn Brizuela, Pharm.DMichael Brizuela, PharmJaime ASTUDILLO, PharmD Eliseo Quezada PharmD. HANNA TRUONG RN - 03/30/2017 10:28 CDT HANNA TRUONG RN - 03/30/2017 10:28 CDT HANNA TRUONG RN - 03/30/2017 10:28 CDT HANNA TRUONG RN - 03/30/2017 10:28 CDT Date : 02/23/2016 CDT 02/24/2016 CDT 02/25/2016 CDT 02/26/2016 CDT Location of INR sample : [facility] Type of Sample : Venous Venous Venous [...] One day Plan completed by : Eliseo Quezada, Alida. Eliseo Quezada, PharmRohit Brizuela, Pharm.DMichael Quezada ReaD. HANNA TRUONG RN - 03/30/2017 10:28 CDT HANNA TRUONG RN - 03/30/2017 10:28 CDT HANNA TRUONG RN - 03/30/2017 10:28 CDT HANNA TRUONG RN - 03/30/2017 10:28 CDT Date : 02/27/2016 CDT 03/01/2016 CDT 03/04/2016 CDT 03/07/2016 CDT Location of INR sample [facility] Type of Sample : Venous Capillary/POC Venous Capillary/POC INR Result : 2.07 2.5 2.2 2.4 Warfarin Dose : 2 mg daily 2mg daily 2.5mg 03/04-03/06 2.5mg Mon,Mon,Mon Total Weekly Warfarin Dose : 14 15.5 Comment : Pt being discharged on Bactrim. Will picking table worker rx for 2 mg tabs On bactrim 2 days left, has f/u in on Monday. Pt mother states plan to return to [facility] on 03/06. next f/u will be in [facility]. 2mg TuWTh Rev'd with Jelly/Pharmacist,called to mom/Fabiola pt done with Bactrizuri Henriquez today pt is going back to with mom for another 1-2wks,she would like INR checked in but INR Clinic to follow will send msg to INR Clinic Stay on 2.5mg daily Recommend Recheck : Three days Three days, Other: in [place] Other: 03/07/16 Other: 4 days Plan completed by : HANNA Chung RN, RN, RN - 03/30/2017 10:28 CDT HANNA TRUONG RN - 03/30/2017 10:28 CDT HANNA TRUONG RN - 03/30/2017 10:28 CDT HANNA TRUONG RN - 03/30/2017 10:28 CDT Date : 03/11/2016 CDT 03/16/2016 CDT 03/31/2016 [...] pt will be staying with sister in [facility] next week she will have INR drawn in [place] again called to Fabiola/pt to do next INR at [place] on ./no changes called to Fabiola/no changes called to Fabiola/Mom,no changes/missed doses Recommend Recheck : Other: 03/16/16 Other: 03/31/16(2 weeks) One month Two weeks Plan completed by : HANNA Cates RN - 03/30/2017 10:28 CDT HANNA TRUONG RN - 03/30/2017 10:28 CDT HANNA TRUONG RN - 03/30/2017 10:28 CDT HANNA TRUONG RN - 03/30/2017 10:28 CDT Date : 05/11/2016 SALT CUTTER 05/12/2016 SALT CUTTER 05/17/2016 SALT CUTTER 05/24/2016 SALT CUTTER Location of INR sample : Other: Drawn [place] Other: [place] Other: [place] Type of Sample : INR Result : 1.6 2.4 1.8 Warfarin Dose : 2.5mg daily 2.5mg daily 5mg 05/24 then 2.5mg daily Total Weekly Warfarin Dose : 17.5 Comment : Per Mom/Fabiola, pt disch from [facility] today, fell & fx left humerus 05/08, surg [...] week One week Plan completed by : HANNA SIERRA RN - 03/30/2017 10:28 CDT HANNA TRUONG RN - 03/30/2017 10:28 CDT HANNA TRUONG RN - 03/30/2017 10:28 CDT HANNA TRUONG RN - 03/30/2017 10:28 CDT Date : 06/01/2016 SALT CUTTER 06/06/2016 SALT CUTTER 06/10/2016 SALT CUTTER 06/13/2016 SALT CUTTER Location of INR sample : Other: [place] Other: [facility] Other: [facility] Type of Sample : INR Result : 1.6 1.4 1.6 2.2 Warfarin Dose : 5mg 06/02, 2.5mg 12, 12, 12 5mg 12/12 & 12/13,2.5mg 12/14 & 12/15 5mg12/16, 12, 2.5mg 12/18 2.5mg Mon,Wed,fri and 5mg all other days Total Weekly Warfarin Dose : Comment : processed 06/02/had 2.5mg last night/called to Mom/Fabiola, no changes rev'd with Burke/Pharmacist,called to mom/Fabiola pt is staying with sister no changes she is aware of will be back 06/10 rev'd with Quintin/Pharmacy/called to Fabiola Hernandez rev'd with Prasad/Phucst,called to mom Recommend Recheck : Other: 06/06/2016 Other: 06/10/16 Three days Other: 06/17/16 Plan completed by : HANNA Chen RN - 03/30/2017 10:28 CDT HANNA TRUONG RN - 03/30/2017 10:28 CDT HANNA TRUONG RN - 03/30/2017 10:28 CDT HANNA TRUONG RN - 03/30/2017 10:28 CDT Date : 06/17/2016 SALT CUTTER 06/24/2016 SALT CUTTER 07/07/2016 SALT CUTTER 07/28/2016 SALT CUTTER Location of INR sample : Other: [facility] Other: [facility] Lab Lab Type of Sample : Venous [...] : Called to Mom/Fabiola, no changes, rev'd w/SOlson/Pharmacy, will try noted dose, [place]23 Called to Mom/Fabiola, no changes, will be back in [place] for next INR left msg for mom/Fabiola,call if changes/?'s called to mom/Fabiola,no changes,pt is having tooth pulled 08/31/16 at [facility] Oral Surgery will need INR checked that am scheduled.letter faxed to [facility] oral surgery to see what INR needs leon Recommend Recheck : One week Other: 07/07/16 Three weeks Two weeks Plan completed by : HANNA OROURKE RN - 03/30/2017 10:28 CDT HANNA TRUONG RN - 03/30/2017 10:28 CDT HANNA TRUONG RN - 03/30/2017 10:28 CDT HANNA TRUONG RN - 03/30/2017 10:28 CDT Date : 08/11/2016 SALT CUTTER 08/31/2016 SALT CUTTER 09/29/2016 CDT 10/27/2016 CDT Location of INR sample : Lab Lab Lab Lab Type of Sample : Venous Venous Venous Venous INR Result : 2.8 2.5 2.4 2.8 Warfarin Dose : 5mg Sun/Tues/Thus and 2.5mg all other days 5mg Sun, Tues & Thurs, 2.5mg all other days 5mg Sun/Tues/Thurs, 2.5mg all other days 5mg Sun/Tue/Thur and 2.5mg all other days Total Weekly Warfarin Dose : 25 25 25 25 Comment : called to mom/Fabiola,no changes,having tooth pulled 08/31 INR to be below 2.5-3.0 per oral surgeon letter,suggested a INR check couple days before but per mom too hard to get pt to clinic for lab Called to Mom/Fabiola, called to oral surgeon's office and result faxed Called to Mom/Fabiola, no changes or concerns Called to Fabiola,pts mother, no changes Recommend Recheck : Other: 08/31/16 One month One month One month Plan completed by : HANNA Davis RN - 03/30/2017 10:28 CDT HANNA TRUONG RN - 03/30/2017 10:28 CDT HANNA TRUONG RN - 03/30/2017 10:28 CDT HANNA TRUONG RN - 03/30/2017 10:28 CDT Date : 11/24/2016 CDT 12/05/2016 CDT 12/22/2016 CDT 01/19/2017 CDT Location of INR sample : Lab Lab Type of Sample : Venous Venous INR Result : 2.2 3.0 2.8 Warfarin Dose : 5mg Sun/Tues/Thurs, 2.5mg all other days 5mg Sun, Tues & Thurs, 2.5mg all other days 5mg Sun/Tues/Thurs, 2.5mg all other days Total Weekly Warfarin Dose : 25 25 25 Comment : called to Mom/Fabiola/states has appt on 11/01 in [place]/may need surgery on non healing arm fx/surgery tentatively scheduled for 12/21/ calendar to check [facility] for pre-op instructions and schedule next INR Per Mom/Fabiola, arm is healing, no surg at this time, may have in Feb, she will let us know Called to Mom/Fabiola, no changes Called to Mom/Fabiola/no changes Recommend Recheck : Other: 12/22/16 One month One month Plan completed by : HANNA Souza RN - 03/30/2017 10:28 CDT HANNA TRUONG RN - 03/30/2017 10:28 CDT HANNA TRUONG RN - 03/30/2017 10:28 CDT HANNA TRUONG RN - 03/30/2017 10:28 CDT Date : 02/16/2017 CDT 03/16/2017 CDT 03/23/2017 CDT 03/30/2017 CDT Location of INR sample : Lab Lab Lab Lab Type of Sample : Venous Venous Venous Venous INR Result : 2.8 3.7 3.2 3.1 Warfarin Dose : 5mg Sun/Tues/Thurs and 2.5mg all other days HOLD 03/16, then 5mg Sun/Tues/Thurs, 2.5mg all other days 5mg Sun/Tues, 2.5mg all other days 5mg Sun/Tue and 2.5mg all other days Total Weekly Warfarin Dose : 25 25 22.5 22.5 Comment : Called to Mom/Fabiola left msg to call if changes/quetsions called to Mom/Fabiola/not sure whyINR high/no bleeding concerns/has been taking some Tylenol for knee pain Called to Mom/Fabiola/states Hue has not been taking Tylenol Called to Fabiola/ no changes or bleeding with pt Recommend Recheck : One month One week One week Two weeks Plan completed by : HANNA Gurrola RN - 03/30/2017 10:28 CDT HANNA TRUONG RN - 03/30/2017 10:28 CDT HANNA TRUONG RN - 03/30/2017 10:28 CDT HANNA TRUONG RN - 03/30/2017 10:28 CDT Anticoagulation Assessment / History Visit : Phone management Plan of Care Date : 01/29/2008 CDT Primary Physician Anticoagulation : TASHA HENRIQUEZ MD 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 - 03/30/2017 9:45 AM CDT Results Notification Document Contains Addenda Addendum by HANNA TRUONG RN on March 30, 2017 10:30:42 CDT Called to mom Fabiola From: HANNA TRUONG RN (AYDE Anticoagulation Nurse) To: AYDE Anticoagulation Nurse; Sent: 03/30/2017 09:45:46 CDT Show up: 03/30/2017 09:46:00 CDT Subject: Results Notification Results: Date Result Name Value Ref Range 03/30/2017 08:00 PT 34.7 second(s) (8.8 - 11.9) 03/30/2017 08:00 INR 3.1 (0.9 - 1.2) Source: [facility] POWERCHART Document Id: [id number] documented in this encounter Plan of Treatment Not on filedocumented as of this encounter Procedures Procedure Name Priority Date/Time Associated Comments Diagnosis PROTHROMBIN TIME Routine 03/30/2017 8:00 AM Resul ts for this (PT), P CDT procedure are i n the results section. documented in this encounter Results (ABNORMAL) PT (Prothrombin Time) with INR (03/30/2017 8:00 AM CDT) [facility] Method Time Signature Prothrombin 34.7 (H) 8.8 - 11.9 POWERCHART Time, P SECONDS INR 3.1 (H) 0.9 - 1.2 POWERCHART Comment: Recommended INR for prophylaxis/treatmen t of Venous Thrombosis, Pulmonary Embolism, Myocardial Infarction, and Embolism from Atrial Fibrillation is 2.0- 3.0 (Standard Therapy) Recommended INR for Mechanical Heart Tejal ves and recurrent Systemic Embolism is 2.5-3.5 (Intensive Therapy) Specimen (Source) Anatomical Collection Method Collection Time Re ceived Time Location / / Volume Laterality Blood 03/30/2017 8:00 AM CDT Tasha Henriquez M.D. LAB BLOOD ADD-ON Performing Organization Address City/State/ZIP Code Phon e Number POWERCHART POWERCHART NA documented in this encounter Visit Diagnoses Not on filedocumented in this encounter Care Teams Reverse Engineer Relationship Specialty Start Date End Date Tasha Henriquez M.D. PCP - General 12/08/16 05/23/18 [address] [place] [id number] documented as of this encounter
--- OUTSIDE RECORDS SUMMARY | 2022-04-25 15:59 | XMS_ITS | Encounter Summary ---
:[address] [facility] Address [address] [place] [address] Care Team Providers Name Role Phone Sridhar Garibay M.D. Primary Care Provider Encounter Details Date Type Department Care Team Description 2017 Hospital Encounter HX NO MAPPING Social History Tobacco Use Types Packs/Day Years [...] on filedocumented in this encounter Care Teams Framing Mechanic Relationship Specialty Start Date End Date Sridhar Garibay M.D. PCP - General 12/08/16 05/23/18 [address] [place] [phone] documented as of this encounter
--- OUTSIDE RECORDS SUMMARY | 2022-04-25 15:59 | XMS_ITS | Encounter Summary ---
:1975 Author Organization [facility] Address [address] [place] [address] Care Team Providers Name Role Phone Sridhar [...] on filedocumented in this encounter Care Teams Solid Waste Engineer Relationship Specialty Start Date End Date Sridhar Garibay M.D. PCP - General 12/08/16 05/23/18 [address] [place] [phone] documented as of this encounter
--- OUTSIDE RECORDS SUMMARY | 2022-04-25 15:59 | XMS_ITS | Encounter Summary ---
:1975 Author Organization [facility] Address [address] [place] [address] Care Team Providers Name Role Phone Sridhar Garibay M.D. Primary Care Provider Encounter Details Date Type Department Care Team Description 12/21/2016 Hospital Encounter HX NO MAPPING Provider, Historical Social History Tobacco Use Types Packs/Day Years [...] on filedocumented in this encounter Care Teams Route Sales Delivery Drivers Supervisor Relationship Specialty Start Date End Date Sridhar Garibay M.D. PCP - General 12/08/16 05/23/18 [address] [place] [phone] documented as of this encounter
--- OUTSIDE RECORDS SUMMARY | 2022-04-25 15:59 | XMS_ITS | Encounter Summary ---
:1975 Author Organization [facility] Address [address] [place] [address] Care Team Providers Name Role Phone Tasha Henriquez M.D. Primary Care Provider Encounter Details Date Type Department Care Team Description 03/23/2017 Hospital Encounter HX [facility] Marsha Henriquez M.D. [address] [place], [place] [address] (Wo rk) Social History [...] of this encounter Miscellaneous Notes Miscellaneous - Khadar Banda R.N. - 03/23/2017 10:23 AM CDT Anticoagulation Patient Intake Anticoagulation Patient Intake Entered On: 03/23/2017 10:25 CDT Performed On: 03/23/2017 10:23 CDT by KHADAR BANDA RN Plan INR goal range : 2.0 - 3.0 Duration of Therapy : Lifelong Tablet Size : 2 mg, 5 mg KHADAR BANDA RN - 03/23/2017 10:23 CDT Anticoagulation Management Plan Grid Date : [...] Plan completed by : darya BURGESS JM KHADAR Mae RN - 03/23/2017 10:23 CDT KHADAR BANDA RN - 03/23/2017 10:23 CDT KHADAR BANDA RN - 03/23/2017 10:23 CDT KHADAR BANDA RN - 03/23/2017 10:23 CDT Date : 12/26/2013 CDT 01/30/2014 CDT [...] 03/10/2014 Other: 03/20/14 Plan completed by : KHADAR Cho RN - 03/23/2017 10:23 CDT KHADAR BANDA RN - 03/23/2017 10:23 CDT KHADAR BANDA RN - 03/23/2017 10:23 CDT KHADAR BANDA RN - 03/23/2017 10:23 CDT Date : 03/20/2014 CDT 03/27/2014 CDT 04/10/2014 CDT 04/12/2014 CDT Location of INR sample : Lab Lab Lab Lab Type of Sample : Venous Venous Venous INR Result : 3.8 3.2 5.3 2.9 Warfarin Dose : HOLD 03/20, then 5mg Mon/Mon, 2.5mg all other days 5mg Mon/Mon, 2.5mg all other days Hold 04/10-04/11 5 [...] completed by : darya lackey LM /pharmacy KHADAR BANDA RN - 03/23/2017 10:23 CDT KHADAR BANDA RN - 03/23/2017 10:23 CDT KHADAR BANDA RN - 03/23/2017 10:23 CDT KHADAR BANDA RN - 03/23/2017 10:23 CDT Date : 04/17/2014 CDT 04/24/2014 CDT 05/01/2014 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 05/15/2014 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 Location of INR sample : Lab Lab [...] will trynoted dose called to mom Fabiola [phone] called to Fabiola/no changes Called to mother/Fabiola, not awareof any changes Recommend Recheck : One week One week Two weeks Two weeks Plan completed by : MARIA GUADALUPE PRECIADO KHADAR BANDA RN - 03/23/2017 10:23 CDT KHADAR BANDA RN - 03/23/2017 10:23 CDT KHADAR BANDA RN - 03/23/2017 10:23 CDT KHADAR BANDA RN - 03/23/2017 10:23 CDT Date : 06/03/2014 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 06/05/2014 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 06/10/2014 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 06/11/2014 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 Location of INR sample : Lab Type [...] Called motherFabiola. Hue will be staying in [place] 2wks post-surgery & have INR drawn there. [...] lovenox tomorrow AM as ordered. INR in [place] for next several weeks as pt will be recovering there. Recommend Recheck : Other: depending on Dr. Henriquez's preop. Other: 06/18 Other: 06/13/14 Plan completed by : KHADAR SANDERS RN - 03/23/2017 10:23 CDT KHADAR BANDA RN - 03/23/2017 10:23 PATRICIAT KHADAR BANDA RN - 03/23/2017 10:23 PATRICIAT KHADAR BANDA RN - 03/23/2017 10:23 CDT Date : 06/14/2014 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 06/14/2014 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 06/16/2014 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 06/23/2014 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 Location of INR sample : Clinic Lab Lab Type of Sample : Venous Venous INR Result : 1.3 on 06/13 2.4 faxed from lab 2.0 Warfarin Dose : (pt took 2.5mg 06/13) 5mg Sat and 5mg Sun (06/14 and 06/15) 5mg Mon and 2.5mg all other days 5mg Mon and 2.5mg all other days Total Weekly Warfarin Dose : 20 20 Comment : [place] lab called with INR result from 06/13, reported they left a message with Dr. Henriquez and hadn't heard back, spoke with mother, Fabiola, and gave doses, continue Lovenox and repeat INR 06/16, message left with INR clinic in [place] to contact [facility] Please contact [place] [facility] on 06/16 for result and may call Fabiola at [phone] with instructions call to Fabiola/will stop Lovenox injections and take noted dose/pt has an appt here in [place] 06/23 so will do lab appt here that day Called to Fabiola/ Hue will be back at [facility] by next draw. will have done on . no changes to meds/diet. Recommend Recheck : Two days One week Two weeks Plan completed by : KHADAR Mattson LM, RN - 03/23/2017 10:23 CDT KHADAR BANDA RN - 03/23/2017 10:23 PATRICIAT KHADAR BANDA RN - 03/23/2017 10:23 CDT KHADAR BANDA RN - 03/23/2017 10:23 CDT Date : 07/10/2014 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 07/17/2014 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 07/31/2014 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 09/11/2014 CDT Location of INR sample : [...] weeks Two weeks Plan completed by : KHADAR Dumont RN - 03/23/2017 10:23 PATRICIAT KHADAR BANDA RN - 03/23/2017 10:23 PATRICIAT KHADAR BANDA RN - 03/23/2017 10:23 PATRICIAT KHADAR BANDA RN - 03/23/2017 10:23 CDT Date : 09/12/2014 CDT 09/25/2014 CDT [...] week Two weeks Plan completed by : KHADAR Rondon RN - 03/23/2017 10:23 CDT KHADAR BANDA RN - 03/23/2017 10:23 CDT KHADAR BANDA RN - 03/23/2017 10:23 CDKHADAR BERNSTEIN RN - 03/23/2017 10:23 CDT Date : 10/23/2014 CDT 11/13/2014 CDT [...] 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/no bleeding/consult with Uqintin/Pharmacy and called Mom with orders Per Meredith Hernandez, no changes, has been drinking some Kiwi Juice, no bleeding/consult with Quintin/Pharmacy Called to mom /Fabiola, no changes, rev'd w/BCarlson/Pharmacy Recommend Recheck : Three weeks One week One week One week Plan completed by : KHADAR Toro RN - 03/23/2017 10:23 CDT KHADAR BANDA RN - 03/23/2017 10:23 CDT KHADAR BANDA RN - 03/23/2017 10:23 CDT KHADAR BANDA RN - 03/23/2017 10:23 CDT Date : 12/04/2014 CDT 12/18/2014 CDT [...] week Two weeks Plan completed by : KHADAR Vargas RN - 03/23/2017 10:23 CDT KHADAR BANDA RN - 03/23/2017 10:23 CDT KHADAR BANDA RN - 03/23/2017 10:23 CDT KHADAR BANDA RN - 03/23/2017 10:23 CDT Date : 02/05/2015 CDT 02/26/2015 CDT [...] weeks Three weeks Plan completed by : KHADAR SLOAN RN - 03/23/2017 10:23 CDT KHADAR BANDA RN - 03/23/2017 10:23 CDT KHADAR BANDA RN - 03/23/2017 10:23 CDT KHADAR BANDA RN - 03/23/2017 10:23 CDT Date : 04/09/2015 CDT 05/07/2015 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 06/04/2015 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 07/02/2015 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 Location of INR sample : Lab Lab [...] Other: 5 weeks Plan completed by : KHADAR Dowell RN - 03/23/2017 10:23 CDT KHADAR BANDA RN - 03/23/2017 10:23 CDT KHADAR BANDA RN - 03/23/2017 10:23 CDT KHADAR BANDA RN - 03/23/2017 10:23 CDT Date : 08/06/2015 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 09/17/2015 CDT 10/29/2015 CDT 11/12/2015 CDT Location [...] weeks One week Plan completed by : KHADAR Rodriguez RN - 03/23/2017 10:23 CDT KHADAR BANDA RN - 03/23/2017 10:23 CDT KHADAR BANDA RN - 03/23/2017 10:23 CDT KHADAR BANDA RN - 03/23/2017 10:23 CDT Date : 11/19/2015 CDT 12/03/2015 CDT [...] month One month Plan completed by : KHADAR Newman RN - 03/23/2017 10:23 CDT KHADAR BANDA RN - 03/23/2017 10:23 CDT KHADAR BANDA Iris RN - 03/23/2017 10:23 CDT KHADAR BANDA RN - 03/23/2017 10:23 CDT Date : 02/19/2016 CDT 02/20/2016 CDT 02/21/2016 CDT 02/22/2016 CDT Location of INR sample : [facility] Type of Sample : Venous Venous [...] completed by : Tyshawn Brizuela, Pharm.DMichael Brizuela, PharmMichaelDMichael ASTUDILLO, PharmD Eliseo Quezada PharmD. SOLO KHADAR L RN - 03/23/2017 10:23 CDT RONAK BANDAELEStarla Simmons RN - 03/23/2017 10:23 CDT SOLO KHADAR L RN - 03/23/2017 10:23 CDT SOLOASHISH HerreraStarla Simmons RN - 03/23/2017 10:23 CDT Date : 02/23/2016 CDT 02/24/2016 CDT 02/25/2016 CDT 02/26/2016 CDT Location of INR sample : [facility] Type of Sample : Venous Venous [...] day Plan completed by : Eliseo Quezada, PharmValentina. Eliseo Quezada, PharmRohit Brizuela, Pharm.DMichael Quezada, Alida. KHADAR BANDA RN - 03/23/2017 10:23 CDT KHADAR BANDA RN - 03/23/2017 10:23 CDT KHADAR BANDA RN - 03/23/2017 10:23 CDT KHADAR BANDA RN - 03/23/2017 10:23 CDT Date : 02/27/2016 CDT 03/01/2016 CDT 03/04/2016 CDT 03/07/2016 CDT Location of INR sample : [facility] Type of Sample : Venous Capillary/POC Venous Capillary/POC INR Result : 2.07 2.5 2.2 2.4 Warfarin Dose : 2 mg daily 2mg daily 2.5mg 03/04-03/06 2.5mg Mon,Mon,Mon Total Weekly Warfarin Dose : 14 15.5 Comment : Pt being discharged on Bactrim. Will pick up attendant rx for 2 mg tabs On bactrim 2 days left, has f/u in [place] on Monday. Pt mother states plan to return to [facility] on 03/06. next f/u will be in [facility]. 2mg TuWTh Rev'd with Jelly/Pharmacist,called to mom/Fabiola pt done with Bactrim rosaline Henriquez today pt is going back to with mom for another 1-2wks,she would like INR checked in but INR Clinic to follow will send msg to INR Clinic Stay on 2.5mg daily Recommend Recheck : Three days Three days, Other: in [place] Other: 03/07/16 Other: 4 days Plan completed by : KHADAR Diana RN, RN RN - 03/23/2017 10:23 CDT KHADAR BANDA RN - 03/23/2017 10:23 CDT KHADAR BANDA RN - 03/23/2017 10:23 CDT KHADAR BANDA RN - 03/23/2017 10:23 CDT Date : 03/11/2016 CDT 03/16/2016 CDT [...] pt [facility] she will have INR drawn in again called to Fabiola/pt to do next INR at [place] ./no changes called to Fabiola/no changes called to Fabiola/Mom,no changes/missed doses Recommend Recheck : Other: 03/16/16 Other: 03/31/16(2 weeks) One month Two weeks Plan completed by : JENIFER PRECIADO ly NB KHADAR BANDA RN - 03/23/2017 10:23 CDT KHADAR BANDA RN - 03/23/2017 10:23 CDT KHADAR BANDA RN - 03/23/2017 10:23 CDT KHADAR BANDA RN - 03/23/2017 10:23 CDT Date : 05/11/2016 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 05/12/2016 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 05/17/2016 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 05/24/2016 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 Location of INR sample : Other: Drawn in [place] Other: [place] Other: [place] Type of Sample : INR Result : 1.6 2.4 1.8 Warfarin Dose : 2.5mg daily 2.5mg daily 5mg 05/24 then 2.5mg daily Total Weekly Warfarin Dose : 17.5 Comment : Per Mom/Fabiola, pt disch from [facility] today, fell & fx left humerus 05/08, [...] week One week Plan completed by : KHADAR MAYORGA RN - 03/23/2017 10:23 CDT KHADAR BANDA RN - 03/23/2017 10:23 PATRICIAT KHADAR BANDA RN - 03/23/2017 10:23 CDT KHADAR BANDA RN - 03/23/2017 10:23 CDT Date : 06/01/2016 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 06/06/2016 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 06/10/2016 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 06/13/2016 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 Location of INR sample : Other: [place] Other: [facility] Other: [facility] Type of Sample : INR Result : 1.6 1.4 1.6 2.2 Warfarin Dose : 5mg 128, 2.5mg 12/, 12, 12/ 5mg 12/12 & 12/13,2.5mg 1214 & 12/15 5mg12/16, 06/11, 2.5mg 1218 2.5mg Mon,Wed,fri and 5mg all other days Total Weekly Warfarin Dose : Comment : processed 06/02/had 2.5mg last night/called to Mom/Fabiola, no changes rev'd with Burke/Pharmacist,called to mom/Fabiola pt is staying with sister no changes she is aware of will be back 06/10 rev'd with Quintin/Pharmacy/called to Fabiola Hernandez rev'd with Prasad/Pharamcist,called to mom Recommend Recheck : Other: 06/06/2016 Other: 06/10/16 Three days Other: 06/17/16 Plan completed by : KHADAR Vargas RN - 03/23/2017 10:23 CDT KHADAR BANDA RN - 03/23/2017 10:23 KHADAR HILL RN - 03/23/2017 10:23 PATRICIAT KHADAR BANDA RN - 03/23/2017 10:23 CDT Date : 06/17/2016 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 06/24/2016 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 07/07/2016 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 07/28/2016 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 Location of INR sample : Other: [facility] [...] changes,pt is having tooth pulled 08/31/16 at [facility] Oral Surgery will need INR checked that am scheduled.letter faxed to [facility] oral surgery to see what INR needs leon Recommend Recheck : One week Other: 07/07/16 Three weeks Two weeks Plan completed by : KHADAR VIRK RN - 03/23/2017 10:23 CDT KHADAR BANDA RN - 03/23/2017 10:23 CDT KHADAR BANDA RN - 03/23/2017 10:23 CDT KHADAR BANDA RN - 03/23/2017 10:23 CDT Date : 08/11/2016 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 08/31/2016 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 09/29/2016 CDT 10/27/2016 CDT Location of INR [...] month One month Plan completed by : KHADAR Jackson RN - 03/23/2017 10:23 CDT KHADAR BANDA RN - 03/23/2017 10:23 CDT KHADAR BANDA RN - 03/23/2017 10:23 CDT KHADAR BANDA RN - 03/23/2017 10:23 CDT Date : 11/24/2016 CDT 12/05/2016 CDT [...] to Mom/Fabiola/states has appt on 11/01 in [place]/may need surgery on non healing arm fx/surgery tentatively scheduled for 12/21/ calendar to check [facility] for pre-op instructions and schedule next INR Per Mom/Fabiola, arm is healing, no surg at this time, may have in Feb, she will let us know Called to Mom/Fabiola, no changes Called to Mom/Fabiola/no changes Recommend Recheck : Other: 12/22/16 One month One month Plan completed by : KHADAR Gale RN - 03/23/2017 10:23 CDT KHADAR BANDA RN - 03/23/2017 10:23 CDT KHADAR BANDA RN - 03/23/2017 10:23 CDT KHADAR BANDA RN - 03/23/2017 10:23 CDT Date : 02/16/2017 CDT 03/16/2017 CDT 03/23/2017 CDT Location of INR sample : Lab Lab Lab Type of Sample : Venous Venous Venous INR Result : 2.8 3.7 3.2 Warfarin Dose : 5mg Sun/Tues/Thurs and 2.5mg all other days HOLD 03/16, then 5mg Sun/Tues/Thurs, 2.5mg all other days 5mg Sun/Tues, 2.5mg all other days Total Weekly Warfarin Dose : 25 25 22.5 Comment : Called to Mom/Fabiola left msg to call if changes/quetsions called to Mom/Fabiola/not sure whyINR high/no bleeding concerns/has been taking some Tylenol for knee pain Called to Mom/Fabiola/states Hue has not been taking Tylenol Recommend Recheck : One month One week One week Plan completed by : KHADAR Martin RN - 03/23/2017 10:23 CDT KHADAR BANDA RN - 03/23/2017 10:23 CDT KHADAR BANDA RN - 03/23/2017 10:23 CDT Anticoagulation Assessment / History Visit : Phone management Plan of Care Date : 01/29/2008 CDT Primary Physician Anticoagulation : TASHA HENRIQUEZ MD 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 - 03/23/2017 10:15 AM CDT Results Notification From: KHADAR BANDA RN ( Anticoagulation Nurse) To: Anticoagulation Nurse; Sent: 03/23/2017 10:15:50 CDT Show up: 03/23/2017 10:16:00 CDT Subject: Results Notification Results: Date Result Name Value Ref Range 03/23/2017 08:01 PT 37.0 second(s) (8.8 - 11.9) 03/23/2017 08:01 INR 3.2 (0.9 - 1.2) Source: [facility] POWERCHART Document Id: [id number] documented in this encounter Plan of Treatment Not on filedocumented as of this encounter Procedures Procedure Name Priority Date/Time Associated Comments Diagnosis PROTHROMBIN TIME Routine 03/23/2017 8:01 AM Resul ts for this (PT), P CDT procedure are i n the results section. documented in this encounter Results (ABNORMAL) PT (Prothrombin Time) with INR (03/23/2017 8:01 AM CDT) [facility] Method Time Signature Prothrombin 37.0 (H) 8.8 - 11.9 POWERCHART Time, P SECONDS INR 3.2 (H) 0.9 - 1.2 POWERCHART Comment: Recommended INR for prophylaxis/treatmen t of Venous Thrombosis, Pulmonary Embolism, Myocardial Infarction, and Embolism from Atrial Fibrillation is 2.0- 3.0 (Standard Therapy) Recommended INR for Mechanical Heart Tejal ves and recurrent Systemic Embolism is 2.5-3.5 (Intensive Therapy) Specimen (Source) Anatomical Collection Method Collection Time Re ceived Time Location / / Volume Laterality Blood 03/23/2017 8:01 AM CDT Tasha Henriquez M.D. LAB BLOOD ADD-ON Performing Organization Address City/State/ZIP Code Phon e Number POWERCHART POWERCHART NA documented in this encounter Visit Diagnoses Not on filedocumented in this encounter Care Teams Immigration Manager Relationship Specialty Start Date End Date Tasha Henriquez M.D. PCP - General 12/08/16 05/23/18 [address] [place] [phone] documented as of this encounter
--- OUTSIDE RECORDS SUMMARY | 2022-04-25 15:59 | XMS_ITS | Encounter Summary ---
:1975 Author Organization [facility] Address [address] [place] [address] Care Team Providers Name Role Phone Unavailable Primary Care Provider Unavailable Encounter Details Date Type Department Care Team Description 10/27/2016 Hospital Encounter HX [facility] Marsha Henriquez M.D. [address] [place], [place] [address] (Wo rk) Social History [...] - - Height 146 cm (4' 9.48) 10/27/2016 4:59 AM CDT Body Mass Index - - [...] Notes Miscellaneous - Hanna Truong R.N. - 10/27/2016 11:18 AM CDT Anticoagulation Patient Intake Anticoagulation Patient Intake Entered On: 10/27/2016 11:20 CDT Performed On: 10/27/2016 11:18 CDT by HANNA TRUONG RN Plan INR goal range : 2.0 - 3.0 Duration of Therapy : Lifelong Tablet Size : 2 mg, 5 mg HANNA TRUONG RN - 10/27/2016 11:18 CDT Anticoagulation Management Plan Grid Date : [...] Plan completed by : darya BURGESS JM HANNA Rivera RN - 10/27/2016 11:18 CDT HANNA TRUONG RN - 10/27/2016 11:18 CDT HANNA TRUONG RN - 10/27/2016 11:18 CDT HANNA TRUONG RN - 10/27/2016 11:18 CDT Date : 12/26/2013 CDT 01/30/2014 CDT [...] completed by : HANNA Eubanks RN - 10/27/2016 11:18 CDT HANNA TRUONG RN - 10/27/2016 11:18 CDT HANNA TRUONG RN - 10/27/2016 11:18 CDT HANNA TRUONG RN - 10/27/2016 11:18 CDT Date : 03/20/2014 CDT 03/27/2014 CDT [...] try dec as noted Called to mom, phoebegosiages to meds has been drinking grape juice. no bleeding. no vitamin K per Dr. Duarte. dose consultwith Agatha Hopkins/Pharmacy. instructed to be seen if bleeding occurs. 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 05/15/2014 ASSISTANT PROFESSOR OF PHILOSOPHY Location of INR sample : Lab Lab [...] will trynoted dose called to mom Fabiola [phone] called to Fabiola/no changes Called to mother/Fabiola, not awareof any changes Recommend Recheck : One week One week Two weeks Two weeks Plan completed by : HANNA CLAY RN - 10/27/2016 11:18 CDT HANNA TRUONG RN - 10/27/2016 11:18 CDT HANNA TRUONG RN - 10/27/2016 11:18 CDT HANNA TRUONG RN - 10/27/2016 11:18 CDT Date : 06/03/2014 ASSISTANT PROFESSOR OF PHILOSOPHY 06/05/2014 ASSISTANT PROFESSOR OF PHILOSOPHY 06/10/2014 ASSISTANT PROFESSOR OF PHILOSOPHY 06/11/2014 ASSISTANT PROFESSOR OF PHILOSOPHY Location of INR sample : Lab Type [...] Called motherFabiola. Hue will be staying in [place] 2wks post-surgery & have INR drawn there. [...] lovenox tomorrow AM as ordered. INR in [place] for next several weeks as pt will be recovering there. Recommend Recheck : Other: depending on Dr. Henriquez's preop. Other: 06/18 Other: 06/13/14 Plan completed by : HANNA MARTIN RN - 10/27/2016 11:18 CDT HANNA TRUONG RN - 10/27/2016 11:18 CDT HANNA TRUONG RN - 10/27/2016 11:18 CDT HANNA TRUONG RN - 10/27/2016 11:18 CDT Date : 06/14/2014 ASSISTANT PROFESSOR OF PHILOSOPHY 06/14/2014 ASSISTANT PROFESSOR OF PHILOSOPHY 06/16/2014 ASSISTANT PROFESSOR OF PHILOSOPHY 06/23/2014 ASSISTANT PROFESSOR OF PHILOSOPHY Location of INR sample : Clinic Lab Lab Type of Sample : Venous Venous INR Result : 1.3 on 06/13 2.4 faxed from lab 2.0 Warfarin Dose : (pt took 2.5mg 06/13) 5mg Sat and 5mg Sun (06/14 and 06/15) 5mg Mon and 2.5mg all other days 5mg Mon and 2.5mg all other days Total Weekly Warfarin Dose : 20 20 Comment : [place] lab called with INR result from 06/13, reported they left a message with Dr. Henriquez and hadn't heard back, spoke with motherFabiola, and gave doses, continue Lovenox and repeat INR 06/16, message left with INR clinic in [place] to contact [facility] Please contact [facility] on 06/16 for result and may call Fabiola at [phone] with instructions call to Fabiola/will stop Lovenox injections and take noted dose/pt has an appt here in [place] 06/23 so will do lab appt here that day Called to Fabiola/ Hue will be back at [facility] by next draw. will have done on . no changes to meds/diet. Recommend Recheck : Two days One week Two weeks Plan completed by : HANNA Neri LM, RN - 10/27/2016 11:18 CDT HANNA TRUONG RN - 10/27/2016 11:18 CDT HANNA TRUONG RN - 10/27/2016 11:18 CDT HANNA TRUONG RN - 10/27/2016 11:18 CDT Date : 07/10/2014 ASSISTANT PROFESSOR OF PHILOSOPHY 07/17/2014 ASSISTANT PROFESSOR OF PHILOSOPHY 07/31/2014 ASSISTANT PROFESSOR OF PHILOSOPHY 09/11/2014 CDT Location of INR sample : [...] Comment : called to Fabiola/Mom Called to Faibola/Mom. No changes. called to Mom/Fabiola/No changes LMTC with changes for Fabiola/mom. Left orders on home machine. Letter sent via POS. Recommend Recheck : One week Two weeks Three weeks Two weeks Plan completed by : HANNA Krishnan RN - 10/27/2016 11:18 CDT HANNA TRUONG RN - 10/27/2016 11:18 CDT HANNA TRUONG RN - 10/27/2016 11:18 CDT HANNA TRUONG RN - 10/27/2016 11:18 CDT Date : 09/12/2014 CDT 09/25/2014 CDT [...] doses Called to Mom/Fabiola, no changes, rev'd w/[facility]/Pharmacy called to Mom/Fabiola, no changes Recommend Recheck : Two weeks One week One week Two weeks Plan completed by : HANNA Santos RN - 10/27/2016 11:18 CDT HANNA TRUONG RN - 10/27/2016 11:18 CDT HANNA TRUONG RN - 10/27/2016 11:18 CDT HANNA TRUONG RN - 10/27/2016 11:18 CDT Date : 10/23/2014 CDT 11/13/2014 CDT [...] completed by : HANNA Cottrell RN - 10/27/2016 11:18 CDT HANNA TRUONG RN - 10/27/2016 11:18 CDT HANNA TRUONG RN - 10/27/2016 11:18 CDT HANNA TRUONG RN - 10/27/2016 11:18 CDT Date : 12/04/2014 CDT 12/18/2014 CDT [...] week Two weeks Plan completed by : darya PRECIADO JM JM HANNA TRUONG RN - 10/27/2016 11:18 CDT HANNA TRUONG RN - 10/27/2016 11:18 CDT HANNA TRUONG RN - 10/27/2016 11:18 CDT HANNA TRUONG RN - 10/27/2016 11:18 CDT Date : 02/05/2015 CDT 02/26/2015 CDT [...] completed by : HANNA PÉREZ RN - 10/27/2016 11:18 CDT HANNA TRUONG RN - 10/27/2016 11:18 CDT HANNA TRUONG RN - 10/27/2016 11:18 CDT HANNA TRUONG RN - 10/27/2016 11:18 CDT Date : 04/09/2015 CDT 05/07/2015 ASSISTANT PROFESSOR OF PHILOSOPHY 06/04/2015 ASSISTANT PROFESSOR OF PHILOSOPHY 07/02/2015 ASSISTANT PROFESSOR OF PHILOSOPHY Location of INR sample : Lab Lab [...] completed by : HANNA Masters RN - 10/27/2016 11:18 CDT HANNA TRUONG RN - 10/27/2016 11:18 CDT HANNA TRUONG RN - 10/27/2016 11:18 CDT HANNA TRUONG RN - 10/27/2016 11:18 CDT Date : 08/06/2015 ASSISTANT PROFESSOR OF PHILOSOPHY 09/17/2015 CDT 10/29/2015 CDT 11/12/2015 CDT Location [...] completed by : HANNA Frazier RN - 10/27/2016 11:18 CDT HANNA TRUONG RN - 10/27/2016 11:18 CDT HANNA TRUONG RN - 10/27/2016 11:18 CDT HANNA TRUONG RN - 10/27/2016 11:18 CDT Date : 11/19/2015 CDT 12/03/2015 CDT [...] completed by : HANNA Johnson RN - 10/27/2016 11:18 CDT HANNA TRUONG RN - 10/27/2016 11:18 CDT HANNA TRUONG RN - 10/27/2016 11:18 CDT HANNA TRUONG RN - 10/27/2016 11:18 CDT Date : 02/19/2016 CDT 02/20/2016 CDT 02/21/2016 CDT 02/22/2016 CDT Location of INR sample : [facility] Type of Sample : Venous [...] Plan completed by : Tyshawn Brizuela, Pharm.DMichael Brizuela PharmMichaelDMichael ASTUDILLO, PharmD Eliseo Quezada, Alida. HANNA TRUONG RN - 10/27/2016 11:18 CDT HANNA TRUONG RN - 10/27/2016 11:18 CDT HANNA TRUONG RN - 10/27/2016 11:18 CDT HANNA TRUONG RN - 10/27/2016 11:18 CDT Date : 02/23/2016 CDT 02/24/2016 CDT 02/25/2016 CDT 02/26/2016 CDT Location of INR sample : [facility] Type of Sample : [...] Plan completed by : Eliseo Quezada, PharmValentina. Elisoe Quezada, PharmD. Tyshawn Brizuela, Pharm.DMichael Quezada, Alida. HANNA TRUONG RN - 10/27/2016 11:18 CDT HANNA TRUONG RN - 10/27/2016 11:18 CDT HANNA TRUONG RN - 10/27/2016 11:18 CDT HANNA TRUONG RN - 10/27/2016 11:18 CDT Date : 02/27/2016 CDT 03/01/2016 CDT 03/04/2016 CDT 03/07/2016 CDT Location of INR sample [facility] Type of Sample : Venous Capillary/POC Venous Capillary/POC INR Result : 2.07 2.5 2.2 2.4 Warfarin Dose : 2 mg daily 2mg daily 2.5mg 03/04-03/06 2.5mg Fri,Sat,Sun Total Weekly Warfarin Dose : 14 15.5 Comment : Pt being discharged on Bactrim. Will seed cone picker rx for 2 mg tabs On bactrim 2 days left, has f/u in [place] on Monday. Pt mother states plan to return to [facility] on 03/06. next f/u will be in [place]. 2mg TuWTh Rev'd with Jelly/Pharmacist,called to castro/Fabiola pt done with Willie Henriquez today pt is going back to [place] with mom for another 1-2wks,she would like INR checked in [place] but [place] INR Clinic to follow will send msg to INR Clinic Stay on 2.5mg daily Recommend Recheck : Three days Three days, Other: in [place] Other: 03/07/16 Other: 4 days Plan completed by : HANNA Chung RN, RN, RN - 10/27/2016 11:18 CDT HANNA TRUONG RN - 10/27/2016 11:18 CDT HANNA TRUONG RN - 10/27/2016 11:18 CDT HANNA TRUONG RN - 10/27/2016 11:18 CDT Date : 03/11/2016 CDT 03/16/2016 CDT [...] pt will be staying with sister in [facility] next week she will have INR drawn in [place] again called to Fabiola/pt to do next INR at [facility] on a Thurs./no changes called to Fabiola/no changes called to Fabiola/Mom,no changes/missed doses Recommend Recheck : Other: 03/16/16 Other: 03/31/16(2 weeks) One month Two weeks Plan completed by : HANNA Cates RN - 10/27/2016 11:18 CDT HANNA TRUONG RN - 10/27/2016 11:18 CDT HANNA TRUONG RN - 10/27/2016 11:18 CDT HANNA TRUONG RN - 10/27/2016 11:18 CDT Date : 05/11/2016 ASSISTANT PROFESSOR OF PHILOSOPHY 05/12/2016 ASSISTANT PROFESSOR OF PHILOSOPHY 05/17/2016 ASSISTANT PROFESSOR OF PHILOSOPHY 05/24/2016 ASSISTANT PROFESSOR OF PHILOSOPHY Location of INR sample : Other: Drawn in [place] Other: [place] Other: [place] Type of Sample : INR Result : 1.6 2.4 1.8 Warfarin Dose : 2.5mg daily 2.5mg daily 5mg 05/24 then 2.5mg daily Total Weekly Warfarin Dose : 17.5 Comment : Per Mom/Fabiola, pt disch from [facility], fell & fx left humerus 05/08, surg 05/09, INR 1.3 on 05/08, 1.5 on 05/09, 1.6 on 05/10 & 1.4 05/11, has had 2.5mg daily since 05/09, going to for INR 05/12 & result to be faxed to us, not on Lovenox rev'd with JimPharmacist,called to mom/Fabiola,she will have it done in again Tues Called to Mom/Fabiola, no changes Called to Mom/Fabiola, no missed doses, took pain pill last night, has not taken any for a while, no other changes Recommend Recheck : Other: 05/12/16 Other: 05/17/16 One week One week Plan completed by : HANNA SIERRA RN - 10/27/2016 11:18 CDHANNA MAXWELL RN - 10/27/2016 11:18 HANNA MAO RN - 10/27/2016 11:18 HANNA MAO RN - 10/27/2016 11:18 CDT Date : 06/01/2016 ASSISTANT PROFESSOR OF PHILOSOPHY 06/06/2016 ASSISTANT PROFESSOR OF PHILOSOPHY 06/10/2016 ASSISTANT PROFESSOR OF PHILOSOPHY 06/13/2016 ASSISTANT PROFESSOR OF PHILOSOPHY Location of INR sample : Other: [place] Other: [facility] Other: [facility] Type of Sample : INR Result : 1.6 1.4 1.6 2.2 Warfarin Dose : 5mg 8, 2.5mg 06/03, 06/04, 06/05 5mg 06/06 & 06/07,2.5mg 06/08 & 06/09 5mg06/10, 06/11, 2.5mg 06/12 2.5mg Mon,Wed,fri and 5mg all other days Total Weekly Warfarin Dose : Comment : processed 06/02/had 2.5mg last night/called to Mom/Fabiola, no changes rev'd with Burke/Pharmacist,called to mom/Fabiola pt is staying with sister no changes she is aware of will be back 06/10 rev'd with Quintin/Pharmacy/called to Fabiola Hernandez rev'd with Prasad/Phaeleazarst,called to mom Recommend Recheck : Other: 06/06/2016 Other: 06/10/16 Three days Other: 06/17/16 Plan completed by : HANNA Chen RN - 10/27/2016 11:18 CDT HANNA TRUONG RN - 10/27/2016 11:18 CDT HANNA TRUONG RN - 10/27/2016 11:18 CDT HANNA TRUONG RN - 10/27/2016 11:18 CDT Date : 06/17/2016 ASSISTANT PROFESSOR OF PHILOSOPHY 06/24/2016 ASSISTANT PROFESSOR OF PHILOSOPHY 07/07/2016 ASSISTANT PROFESSOR OF PHILOSOPHY 07/28/2016 ASSISTANT PROFESSOR OF PHILOSOPHY Location of INR sample : Other: [facility] CF Other: [facility] Lab Lab Type of Sample : [...] changes,pt is having tooth pulled 08/31/16 at [facility] Oral Surgery will need INR checked that am scheduled.letter faxed to [facility] oral surgery to see what INR needs leon Recommend Recheck : One week Other: 07/07/16 Three weeks Two weeks Plan completed by : HANNA OROURKE RN - 10/27/2016 11:18 CDT HANNA TRUONG RN - 10/27/2016 11:18 CDT HANNA TRUONG RN - 10/27/2016 11:18 CDT HANNA TRUONG RN - 10/27/2016 11:18 CDT Date : 08/11/2016 ASSISTANT PROFESSOR OF PHILOSOPHY 08/31/2016 ASSISTANT PROFESSOR OF PHILOSOPHY 09/29/2016 CDT 10/27/2016 CDT Location of INR [...] completed by : HANNA Davis RN - 10/27/2016 11:18 CDT HANNA TRUONG RN - 10/27/2016 11:18 CDT HANNA TRUONG RN - 10/27/2016 11:18 CDT HANNA TRUONG RN - 10/27/2016 11:18 CDT Anticoagulation Assessment / History Visit : Phone management Plan of Care Date : 01/29/2008 CDT Primary Physician Anticoagulation : TASHA HENRIQUEZ MD 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 - 10/27/2016 9:28 AM CDT Results Notification Document Contains Addenda Addendum by HANNA TRUONG RN on October 27, 2016 11:20:43 CDT Called to pts mother Fabiola From: HANNA TRUONG RN ( Anticoagulation Nurse) To: Anticoagulation Nurse; Sent: 10/27/2016 09:28:26 CDT Show up: 10/27/2016 09:29:00 CDT Subject: Results Notification Results: Date Result Name Value Ref Range 10/27/2016 08:00 PT 31.3 second(s) (8.8 - 11.9) 10/27/2016 08:00 INR 2.8 (0.9 - 1.2) Source: [facility] [employer] Document Id: [id number] documented in this encounter Plan of Treatment Not on filedocumented as of this encounter Procedures Procedure Name Priority Date/Time Associated Comments Diagnosis PROTHROMBIN TIME Routine 10/27/2016 8:00 AM Resul ts for this (PT), P CDT procedure are i n the results section. documented in this encounter Results (ABNORMAL) PT (Prothrombin Time) with INR (10/27/2016 8:00 AM CDT) [facility] gist Method Time Signature Prothrombin 31.3 (H) 8.8 - 11.9 POWERCHART Time, P SECONDS INR 2.8 (H) 0.9 - 1.2 POWERCHART Comment: Recommended INR for prophylaxis/treatmen t of Venous Thrombosis, Pulmonary Embolism, Myocardial Infarction, and Embolism from Atrial Fibrillation is 2.0- 3.0 (Standard Therapy) Recommended INR for Mechanical Heart Tejal ves and recurrent Systemic Embolism is 2.5-3.5 (Intensive Therapy) Specimen (Source) Anatomical Collection Method Collection Time Re ceived Time Location / / Volume Laterality Blood 10/27/2016 8:00 AM CDT Tasha Henriquez M.D. LAB BLOOD ADD-ON Performing Organization Address City/State/ZIP Code Phon e Number POWERCHART documented in this encounter Visit Diagnoses Not on filedocumented in this encounter
--- OUTSIDE RECORDS SUMMARY | 2022-04-25 15:59 | XMS_ITS | Encounter Summary ---
:1975 Author Organization [facility] Address [address] [place] [address] Care Team Providers Name Role Phone Sridhar Garibay M.D. Primary Care Provider Encounter Details Date Type Department Care Team Description 02/15/2017 Hospital Encounter HX [facility] Deyanira Garcia APRN, C.N.P., D.N.P. [address] [place], [place] [phone] (Wo rk) Social History Tobacco Use Types [...] - - Height 146 cm (4' 9.48) 02/15/2017 8:25 AM CDT Body Mass Index - - [...] filedocumented in this encounter Care Teams Manager Interventional Relationship Specialty Start Date End Date Sridhar Garibay M.D. PCP - General 12/08/16 05/23/18 [address] [place] [phone] documented as of this encounter
--- OUTSIDE RECORDS SUMMARY | 2022-04-25 15:59 | XMS_ITS | Encounter Summary ---
:1975 Author Organization [facility] Address [address] [place] [id number] Care Team Providers Name Role Phone Tasha Henriquez M.D. Primary Care Provider Encounter Details Date Type Department Care Team Description 12/22/2016 Hospital Encounter HX [facility] Marsha Henriquez M.D. [address] [place], [place] [address] (Wo rk) Social History [...] - - Height 146 cm (4' 9.48) 12/22/2016 8:50 AM CDT Body Mass Index - - [...] encounter Miscellaneous Notes Miscellaneous - Wali Mcclellan, RMichaelN. - 12/22/2016 11:50 AM CDT Anticoagulation Patient Intake Anticoagulation Patient Intake Entered On: 12/22/2016 11:53 CDT Performed On: 12/22/2016 11:50 CDT by WALI MCCLELLAN RN Plan INR goal range : 2.0 - 3.0 Duration of Therapy : Lifelong Tablet Size : 2 mg, 5 mg WALI MCCLELLAN RN - 12/22/2016 11:50 CDT Anticoagulation Management Plan Grid Date : [...] darya BURGESS JM WALI Ervin RN - 12/22/2016 11:50 CDT WALI MCCLELLAN RN - 12/22/2016 11:50 CDT WALI MCCLELLAN RN - 12/22/2016 11:50 CDT WALI MCCLELLAN RN - 12/22/2016 11:50 CDT Date : 12/26/2013 CDT 01/30/2014 CDT [...] a long time, no bleeding now left [facility] for Fabiola,call if changes Recommend Recheck : Other: 5 weeks Other: 5 weeks Other: 03/10/2014 Other: 03/20/14 Plan completed by : WALI Davidson RN - 12/22/2016 11:50 CDT WALI MCCLELLAN RN - 12/22/2016 11:50 CDT WALI MCCLELLAN RN - 12/22/2016 11:50 CDT WALI MCCLELLAN RN - 12/22/2016 11:50 CDT Date : 03/20/2014 CDT 03/27/2014 CDT [...] completed by : darya lackey LM /pharmacy WALI MCCLELLAN RN - 12/22/2016 11:50 CDT WALI MCCLELLAN RN - 12/22/2016 11:50 CDT WALI MCCLELLAN RN - 12/22/2016 11:50 CDT WALI MCCLELLAN RN - 12/22/2016 11:50 CDT Date : 04/17/2014 CDT 04/24/2014 CDT 05/01/2014 MANAGER INTERN 05/15/2014 MANAGER INTERN Location of INR sample : Lab Lab [...] will trynoted dose called to mom Fabiola [phone] called to Fabiola/no changes Called to mother/Fabiola, not awareof any changes Recommend Recheck : One week One week Two weeks Two weeks Plan completed by : WALI CHOI RN - 12/22/2016 11:50 CDT WALI MCCLELLAN RN - 12/22/2016 11:50 CDT WALI MCCLELLAN RN - 12/22/2016 11:50 CDT WALI MCCLELLAN RN - 12/22/2016 11:50 CDT Date : 06/03/2014 MANAGER INTERN 06/05/2014 MANAGER INTERN 06/10/2014 MANAGER INTERN 06/11/2014 MANAGER INTERN Location of INR sample : Lab Type [...] Called motherFabiola. Hue will be staying in [place] 2wks post-surgery & have INR drawn there. [...] lovenox tomorrow AM as ordered. INR in [place] for next several weeks as pt will be recovering there. Recommend Recheck : Other: depending on Dr. Henriquez's preop. Other: 06/18 Other: 06/13/14 Plan completed by : WALI TYLER RN - 12/22/2016 11:50 CDT WALI MCCLELLAN RN - 12/22/2016 11:50 CDT WALI MCCLELLAN RN - 12/22/2016 11:50 CDT WALI MCCLELLAN RN - 12/22/2016 11:50 CDT Date : 06/14/2014 MANAGER INTERN 06/14/2014 MANAGER INTERN 06/16/2014 MANAGER INTERN 06/23/2014 MANAGER INTERN Location of INR sample : Clinic Lab Lab Type of Sample : Venous Venous INR Result : 1.3 on 06/13 2.4 faxed from lab 2.0 Warfarin Dose : (pt took 2.5mg 06/13) 5mg Sat and 5mg Sun (06/14 and 06/15) 5mg Mon and 2.5mg all other days 5mg Mon and 2.5mg all other days Total Weekly Warfarin Dose : 20 20 Comment : [place] lab called with INR result from 06/13, reported they left a message with Dr. Henriquez and hadn't heard back, spoke with motherFabiola, and gave doses, continue Lovenox and repeat INR 06/16, message left with INR clinic in [place] to contact [facility] Please contact [facility] lab on 06/16 for result and may call Fabiola at [phone] with instructions call to Fabiola/will stop Lovenox injections and take noted dose/pt has an appt here in [place] 06/23 so will do lab appt here that day Called to Fabiola/ Hue will be back at [facility] by next draw. will have done on . no changes to meds/diet. Recommend Recheck : Two days One week Two weeks Plan completed by : WALI Steven LM, RN - 12/22/2016 11:50 CDT WALI MCCLELLAN RN - 12/22/2016 11:50 CDT WALI MCCLELLAN RN - 12/22/2016 11:50 CDT WALI MCCLELLAN RN - 12/22/2016 11:50 CDT Date : 07/10/2014 MANAGER INTERN 07/17/2014 MANAGER INTERN 07/31/2014 MANAGER INTERN 09/11/2014 CDT Location of INR sample : [...] completed by : WALI Yarbrough RN - 12/22/2016 11:50 CDT WALI MCCLELLAN RN - 12/22/2016 11:50 CDT WALI MCCLELLAN RN - 12/22/2016 11:50 CDT WALI MCCLELLAN RN - 12/22/2016 11:50 CDT Date : 09/12/2014 CDT 09/25/2014 CDT [...] doses Called to Mom/Fabiola, no changes, rev'd w/JHalvorsen/Pharmacy called to Mom/Fabiola, no changes Recommend Recheck : Two weeks One week One week Two weeks Plan completed by : WALI Almaguer RN - 12/22/2016 11:50 CDT WALI MCCLELLAN RN - 12/22/2016 11:50 CDT WALI MCCLELLAN RN - 12/22/2016 11:50 CDT WALI MCCLELLAN RN - 12/22/2016 11:50 CDT Date : 10/23/2014 CDT 11/13/2014 CDT [...] completed by : WALI Skinner RN - 12/22/2016 11:50 CDT WALI MCCLELLAN RN - 12/22/2016 11:50 CDT WALI MCCLELLAN RN - 12/22/2016 11:50 CDT WALI MCCLELLAN RN - 12/22/2016 11:50 CDT Date : 12/04/2014 CDT 12/18/2014 CDT [...] completed by : WALI Cabrera RN - 12/22/2016 11:50 CDT WALI MCCLELLAN RN - 12/22/2016 11:50 CDT WALI MCCLELLAN RN - 12/22/2016 11:50 CDT WALI MCCLELLAN RN - 12/22/2016 11:50 CDT Date : 02/05/2015 CDT 02/26/2015 CDT [...] completed by : WALI LAWRENCE RN - 12/22/2016 11:50 CDT WALI MCCLELLAN RN - 12/22/2016 11:50 CDT WALI MCCLELLAN RN - 12/22/2016 11:50 CDT WALI MCCLELLAN RN - 12/22/2016 11:50 CDT Date : 04/09/2015 CDT 05/07/2015 MANAGER INTERN 06/04/2015 MANAGER INTERN 07/02/2015 MANAGER INTERN Location of INR sample : Lab Lab [...] completed by : WALI Nelson RN - 12/22/2016 11:50 CDT WALI MCCLELLAN RN - 12/22/2016 11:50 CDT WALI MCCLELLAN RN - 12/22/2016 11:50 CDT WALI MCCLELLAN RN - 12/22/2016 11:50 CDT Date : 08/06/2015 MANAGER INTERN 09/17/2015 CDT 10/29/2015 CDT 11/12/2015 CDT Location [...] completed by : WALI Toussaint RN - 12/22/2016 11:50 CDT WALI MCCLELLAN RN - 12/22/2016 11:50 CDT WALI MCCLELLAN RN - 12/22/2016 11:50 CDT WALI MCCLELLAN RN - 12/22/2016 11:50 CDT Date : 11/19/2015 CDT 12/03/2015 CDT [...] completed by : WALI Will RN - 12/22/2016 11:50 CDT WALI MCCELLLAN RN - 12/22/2016 11:50 CDT WALI MCCLELLAN RN - 12/22/2016 11:50 CDT WALI MCCLELLAN RN - 12/22/2016 11:50 CDT Date : 02/19/2016 CDT 02/20/2016 CDT 02/21/2016 CDT 02/22/2016 CDT Location of INR sample : [facility] Type of Sample : Venous [...] day Plan completed by : Tyshawn Brizuela, Pharm.D. Tyshawn Brizuela, Pharm.D. BAUDILIO, PharmD Eliseo Quezada, ReaD. WALI MCCLELLAN RN - 12/22/2016 11:50 CDT WALI MCCLELLAN RN - 12/22/2016 11:50 CDT WALI MCCLELLAN RN - 12/22/2016 11:50 CDT WALI MCCLELLAN RN - 12/22/2016 11:50 CDT Date : 02/23/2016 CDT 02/24/2016 CDT 02/25/2016 CDT 02/26/2016 CDT Location of INR sample : [facility] Type of Sample : Venous [...] day Plan completed by : Eliseo Quezada, PharmD. Eliseo Quezada, PharmD. Tyshawn Brizuela, Pharm.D. Eliseo Quezada, PharmD. WALI MCCLELLAN RN - 12/22/2016 11:50 CDT WALI MCCLELLAN RN - 12/22/2016 11:50 CDT WALI MCCLELLAN RN - 12/22/2016 11:50 CDT WALI MCCLELLAN RN - 12/22/2016 11:50 CDT Date : 02/27/2016 CDT 03/01/2016 CDT 03/04/2016 CDT 03/07/2016 CDT Location of INR sample : [facility] Lab [facility] Type of Sample : Venous Capillary/POC Venous Capillary/POC INR Result : 2.07 2.5 2.2 2.4 Warfarin Dose : 2 mg daily 2mg daily 2.5mg 03/04-03/06 2.5mg Mon,Sat,Mon Total Weekly Warfarin Dose : 14 15.5 Comment : Pt being discharged on Bactrim. 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 Pt mother states plan to return to [facility] on 03/06. next f/u will be in [facility]. 2mg TuWTh Rev'd with Jelly/Pharmacist,called to castro/Fabiola pt done with Bactrizuri Henriquez today pt is going back to [place] with mom for another 1-2wks,she would like INR checked in but [place] IN[facility] Clinic to follow will send msg to INR Clinic Stay on 2.5mg daily Recommend Recheck : Three days Three days, Other: in [place] Other: 03/07/16 Other: 4 days Plan completed by : WALI Cartagena RN, RN, RN - 12/22/2016 11:50 CDT WALI MCCLELLAN RN - 12/22/2016 11:50 CDT WALI MCCLELLAN RN - 12/22/2016 11:50 CDT WALI MCCLELLAN RN - 12/22/2016 11:50 CDT Date : 03/11/2016 CDT 03/16/2016 CDT [...] drawn in [place] faxed to us,called to castro/Fabiola,no changes pt will be staying with [facility] week she will have INR drawn in [place] again called to Fabiola/pt to do next INR at [facility] on a Thurs./no changes called to Fabiola/no changes called to Fabiola/Mom,no changes/missed doses Recommend Recheck : Other: 03/16/16 Other: 03/31/16(2 weeks) One month Two weeks Plan completed by : WALI Segura RN - 12/22/2016 11:50 CDT WALI MCCLELLAN RN - 12/22/2016 11:50 CDT WALI MCCLELLAN RN - 12/22/2016 11:50 CDT WALI MCCLELLAN RN - 12/22/2016 11:50 CDT Date : 05/11/2016 MANAGER INTERN 05/12/2016 MANAGER INTERN 05/17/2016 MANAGER INTERN 05/24/2016 MANAGER INTERN Location of INR sample : Other: Drawn in [place] Other: [place] Other: [place] Type of Sample : INR Result : 1.6 2.4 1.8 Warfarin Dose : 2.5mg daily 2.5mg daily 5mg 05/24 then 2.5mg daily Total Weekly Warfarin Dose : 17.5 Comment : Per Mom/Fabiola, pt disch from [facility], fell & fx left humerus [...] completed by : WALI REIS RN - 12/22/2016 11:50 CDT WALI MCCLELLAN RN - 12/22/2016 11:50 CDWALI OGLESBY RN - 12/22/2016 11:50 CDT WALI MCCLELLAN RN - 12/22/2016 11:50 CDT Date : 06/01/2016 MANAGER INTERN 06/06/2016 MANAGER INTERN 06/10/2016 MANAGER INTERN 06/13/2016 MANAGER INTERN Location of INR sample : Other: [facility] Other: [facility] CF Other: [facility] CF Type of Sample : INR Result : 1.6 1.4 1.6 2.2 Warfarin Dose : 5mg 06/02, 2.5mg 06/03, 06/04, 06/05 5mg 06/06 & [...] completed by : WALI Mckay RN - 12/22/2016 11:50 CDT WALI MCCLELLAN RN - 12/22/2016 11:50 CDT WALI MCCLELLAN RN - 12/22/2016 11:50 CDT WALI MCCLELLAN RN - 12/22/2016 11:50 CDT Date : 06/17/2016 MANAGER INTERN 06/24/2016 MANAGER INTERN 07/07/2016 MANAGER INTERN 07/28/2016 MANAGER INTERN Location of INR sample : Other: [facility] CF Other: [facility] CF Lab Lab Type of Sample : [...] changes,pt is having tooth pulled 08/31/16 at [facility] Oral Surgery will need INR checked that am scheduled.letter faxed to [facility] oral surgery to see what INR needs leon Recommend Recheck : One week Other: 07/07/16 Three weeks Two weeks Plan completed by : WALI GIBBS RN - 12/22/2016 11:50 CDT WALI MCCLELLAN RN - 12/22/2016 11:50 CDT WALI MCCLELLAN RN - 12/22/2016 11:50 CDT WALI MCCLELLAN RN - 12/22/2016 11:50 CDT Date : 08/11/2016 MANAGER INTERN 08/31/2016 MANAGER INTERN 09/29/2016 CDT 10/27/2016 CDT Location of INR [...] One month Plan completed by : WALI Joyner RN - 12/22/2016 11:50 CDT WALI MCCLELLAN RN - 12/22/2016 11:50 CDT WALI MCCLELLAN RN - 12/22/2016 11:50 CDT WALI MCCLELLAN RN - 12/22/2016 11:50 CDT Date : 11/24/2016 CDT 12/05/2016 CDT 12/22/2016 CDT Location of INR sample : Lab Lab Type of Sample : Venous Venous INR Result : 2.2 3.0 Warfarin Dose : 5mg Sun/Tues/Thurs, 2.5mg all other days 5mg Sun, Tues & Thurs, 2.5mg all other days Total Weekly Warfarin Dose : 25 25 Comment : called to Mom/Fabiola/states has appt on 11/01 in [place]/may need surgery on non healing arm fx/surgery tentatively scheduled for 12/21/ calendar to check [facility] for pre-op instructions and schedule next INR Per Mom/Fabiola, arm is healing, no surg at this time, may have in Feb, she will let us know Called to Mom/Fabiola, no changes Recommend Recheck : Other: 12/22/16 One month Plan completed by : WALI WATSON RN - 12/22/2016 11:50 CDT WALI MCCLELLAN RN - 12/22/2016 11:50 CDT WALI MCCLELLAN RN - 12/22/2016 11:50 CDT Anticoagulation Assessment / History Visit : Phone management Plan of Care Date : 01/29/2008 CDT Primary Physician Anticoagulation : TASHA HENRIQUEZ MD 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 - 12/22/2016 9:39 AM CDT Results Notification Document Contains Addenda Addendum by WALI MCCLELLAN RN on December 22, 2016 11:55:59 CDT Orders called to Castro/Fabiola. From: WALI MCCLELLAN RN ( Anticoagulation Nurse) To: Anticoagulation Nurse; Sent: 12/22/2016 09:39:27 CDT Show up: 12/22/2016 09:40:00 CDT Subject: Results Notification Results: Date Result Name Value Ref Range 12/22/2016 08:00 PT 33.3 second(s) (8.8 - 11.9) 12/22/2016 08:00 INR 3.0 (0.9 - 1.2) Source: [facility] POWERCHART Document Id: [id number] Electronically signed by Conversion, [facility] Tower Equipment Installer [id number] at 12/29/2016 6:14 AM CDT documented in this encounter Plan of Treatment Not on filedocumented as of this encounter Procedures Procedure Name Priority Date/Time Associated Comments Diagnosis PROTHROMBIN TIME Routine 12/22/2016 8:00 AM Resul ts for this (PT), P CDT procedure are i n the results section. documented in this encounter Results (ABNORMAL) PT (Prothrombin Time) with INR (12/22/2016 8:00 AM CDT) [facility] Method Time Signature Prothrombin 33.3 (H) 8.8 - 11.9 POWERCHART Time, P SECONDS INR 3.0 (H) 0.9 - 1.2 POWERCHART Comment: Recommended INR for prophylaxis/treatmen t of Venous Thrombosis, Pulmonary Embolism, Myocardial Infarction, and Embolism from Atrial Fibrillation is 2.0- 3.0 (Standard Therapy) Recommended INR for Mechanical Heart Tejal ves and recurrent Systemic Embolism is 2.5-3.5 (Intensive Therapy) Specimen (Source) Anatomical Collection Method Collection Time Re ceived Time Location / / Volume Laterality Blood 12/22/2016 8:00 AM CDT Tasha Henriquez M.D. LAB BLOOD ADD-ON Performing Organization Address City/State/ZIP Code Phon e Number POWERCHART documented in this encounter Visit Diagnoses Not on filedocumented in this encounter Care Teams Risk Specialist Relationship Specialty Start Date End Date Tasha Henriquez M.D. PCP - General 12/08/16 05/23/18 [place] [phone] documented as of this encounter
--- OUTSIDE RECORDS SUMMARY | 2022-04-25 15:59 | XMS_ITS | Encounter Summary ---
:1975 Author Organization [facility] Address [address] [place] [id number] Care Team Providers Name Role Phone Unavailable Primary Care Provider Unavailable Encounter Details Date Type Department Care Team Description 08/11/2016 Hospital Encounter HX [facility] Marsha Henriquez M.D. [address] [place], [place] [address] (Wo rk) Social History [...] - - Height 146 cm (4' 9.48) 08/11/2016 5:20 AM PRESS SMITH HELPER Body Mass Index - - documented in [...] of this encounter Miscellaneous Notes Miscellaneous - Meli Campo R.N. - 08/11/2016 10:52 AM CST Anticoagulation Patient Intake Document Has Been Updated Anticoagulation Patient Intake Entered On: 08/11/2016 10:56 PRESS SMITH HELPER Performed On: 08/11/2016 10:52 PRESS SMITH HELPER by MELI CAMPO RN Plan INR goal range : 2.0 - 3.0 Duration of Therapy : Lifelong Tablet Size : 2 mg, 5 mg MELI CAMPO RN - 08/11/2016 10:52 PRESS SMITH HELPER MELI CAMPO RN - 08/11/2016 10:52 PRESS SMITH HELPER Anticoagulation Management Plan Grid Date : 09/05/2013 [...] Plan completed by : darya BURGESS JM MELI Carroll RN - 08/11/2016 10:52 PRESS SMITH HELPER MELI CAMPO RN - 08/11/2016 10:52 PRESS SMITH HELPER MELI CAMPO - 08/11/2016 10:52 PRESS SMITH HELPER MELI CAMPO RN - 08/11/2016 10:52 PRESS SMITH HELPER Date : 12/26/2013 CDT 01/30/2014 CDT 03/06/2014 [...] 03/10/2014 Other: 03/20/14 Plan completed by : MELI Pradhan RN - 08/11/2016 10:52 PRESS SMITH HELPER MELI CAMPO RN - 08/11/2016 10:52 PRESS SMITH HELPER MELI CAMPON - 08/11/2016 10:52 PRESS SMITH HELPER MELI CAMPO RN - 08/11/2016 10:52 PRESS SMITH HELPER Date : 03/20/2014 CDT 03/27/2014 CDT 04/10/2014 CDT 04/12/2014 CDT Location of INR sample : Lab Lab Lab Lab Type of Sample : Venous Venous Venous INR Result : 3.8 3.2 5.3 2.9 Warfarin Dose : HOLD 03/20, then 5mg Mon/Wed, 2.5mg all other days 5mg Mon/Mon, 2.5mg [...] completed by : darya lackey LM /pharmacy MELI CAMPO RN - 08/11/2016 10:52 PRESS SMITH HELPER MELI CAMPO RN - 08/11/2016 10:52 PRESS SMITH HELPER MELI CAMPO - 08/11/2016 10:52 PRESS SMITH HELPER MELI CAMPO RN - 08/11/2016 10:52 PRESS SMITH HELPER Date : 04/17/2014 CDT 04/24/2014 CDT 05/01/2014 PRESS SMITH HELPER 05/15/2014 PRESS SMITH HELPER Location of INR sample : Lab Lab [...] will trynoted dose called to mom Fabiola [phone] called to Fabiola/no changes Called to mother/Fabiola, not awareof any changes Recommend Recheck : One week One week Two weeks Two weeks Plan completed by : MELI LEON RN - 08/11/2016 10:52 MELI ROJO RN - 08/11/2016 10:52 MELI ROJO - 08/11/2016 10:52 MELI ROJO RN - 08/11/2016 10:52 PRESS SMITH HELPER Date : 06/03/2014 PRESS SMITH HELPER 06/05/2014 PRESS SMITH HELPER 06/10/2014 PRESS SMITH HELPER 06/11/2014 PRESS SMITH HELPER Location of INR sample : Lab Type [...] Called motherFabiola. Hue will be staying in [place] 2wks post-surgery & have INR drawn there. [...] lovenox tomorrow AM as ordered. INR in [place] for next several weeks as pt will be recovering there. Recommend Recheck : Other: depending on Dr. Henriquez's preop. Other: 06/18 Other: 06/13/14 Plan completed by : MELI ROSADO RN - 08/11/2016 10:52 PRESS SMITH HELPER MELI CAMPO RN - 08/11/2016 10:52 PRESS SMITH HELPER MELI CAMPO LRN - 08/11/2016 10:52 PRESS SMITH HELPER MELI CAMPO RN - 08/11/2016 10:52 PRESS SMITH HELPER Date : 06/14/2014 PRESS SMITH HELPER 06/14/2014 PRESS SMITH HELPER 06/16/2014 PRESS SMITH HELPER 06/23/2014 PRESS SMITH HELPER Location of INR sample : Clinic Lab Lab Type of Sample : Venous Venous INR Result : 1.3 on 06/13 2.4 faxed from lab 2.0 Warfarin Dose : (pt took 2.5mg 06/13) 5mg Sat and 5mg Sun (06/14 and 06/15) 5mg Mon and 2.5mg all other days 5mg Mon and 2.5mg all other days Total Weekly Warfarin Dose : 20 20 Comment : [place] lab called with INR result from 06/13, reported they left a message with Dr. Henriquez and hadn't heard back, spoke with motherFabiola, and gave doses, continue Lovenox and repeat INR 06/16, message left with INR clinic in [place] to contact Please contact [facility] lab on 06/16 for result and may call Fabiola at [phone] with instructions call to Fabiola/will stop Lovenox injections and take noted dose/pt has an appt here in [place] 06/23 so will do lab appt here that day Called to Fabiola/ Hue will be back at [facility] by next draw. will have done on . no changes to meds/diet. Recommend Recheck : Two days One week Two weeks Plan completed by : MELI Vazquez LM, RN - 08/11/2016 10:52 MELI ROJO RN - 08/11/2016 10:52 MELI ROJO - 08/11/2016 10:52 MELI ROJO RN - 08/11/2016 10:52 PRESS SMITH HELPER Date : 07/10/2014 PRESS SMITH HELPER 07/17/2014 PRESS SMITH HELPER 07/31/2014 PRESS SMITH HELPER 09/11/2014 CDT Location of INR sample : [...] weeks Two weeks Plan completed by : MELI Rubi RN - 08/11/2016 10:52 MELI ROJO RN - 08/11/2016 10:52 MELI ROJO - 08/11/2016 10:52 MELI ROJO RN - 08/11/2016 10:52 PRESS SMITH HELPER Date : 09/12/2014 CDT 09/25/2014 CDT 10/02/2014 [...] week Two weeks Plan completed by : MELI Owen RN - 08/11/2016 10:52 PRESS SMITH HELPER MELI CAMPO RN - 08/11/2016 10:52 MELI ROJO - 08/11/2016 10:52 PRESS SMITH HELPER MELI CAMPO RN - 08/11/2016 10:52 PRESS SMITH HELPER Date : 10/23/2014 CDT 11/13/2014 CDT 11/20/2014 [...] : 25 20 Comment : called to Castro/Fabiola, no changes called to Fabiola Hernandez, only change is she is 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 Tã Em Béics/no bleeding/consult with Quintin/Pharmacy and called Mom with orders Per Meredith Hernandez, no changes, has been drinking some Kiwi Juice, no bleeding/consult with Quintin/Pharmacy Called to castro /Fabiola, no changes, rev'd w/BCarlson/Pharmacy Recommend Recheck : Three weeks One week One week One week Plan completed by : MELI Bailey RN - 08/11/2016 10:52 PRESS SMITH HELPER MELI CAMPO RN - 08/11/2016 10:52 PRESS SMITH HELPER MELI CAMPO - 08/11/2016 10:52 PRESS SMITH HELPER MELI CAMPO RN - 08/11/2016 10:52 PRESS SMITH HELPER Date : 12/04/2014 CDT 12/18/2014 CDT 01/15/2015 [...] Dr Henriquez, rev'd dose w/LZorn/Pharmacy Called to mom/Fbaiola, no changes Recommend Recheck : Two weeks Three weeks One week Two weeks Plan completed by : MELI Shirley RN - 08/11/2016 10:52 PRESS SMITH HELPER MELI CAMPO RN - 08/11/2016 10:52 PRESS SMITH HELPER MEIL CAMPO - 08/11/2016 10:52 PRESS SMITH HELPER MELI CAMPO RN - 08/11/2016 10:52 PRESS SMITH HELPER Date : 02/05/2015 CDT 02/26/2015 CDT 03/05/2015 [...] weeks Three weeks Plan completed by : MELI CAMPOS RN - 08/11/2016 10:52 PRESS SMITH HELPER MELI CAMPO RN - 08/11/2016 10:52 PRESS SMITH HELPER MELI CAMPO - 08/11/2016 10:52 MELI ROJO RN - 08/11/2016 10:52 PRESS SMITH HELPER Date : 04/09/2015 CDT 05/07/2015 PRESS SMITH HELPER 06/04/2015 PRESS SMITH HELPER 07/02/2015 PRESS SMITH HELPER Location of INR sample : Lab Lab [...] Other: 5 weeks Plan completed by : MELI Keating RN - 08/11/2016 10:52 PRESS SMITH HELPER MELI CAMPO RN - 08/11/2016 10:52 MELI ROJO - 08/11/2016 10:52 PRESS SMITH HELPER MELI CAMPO RN - 08/11/2016 10:52 PRESS SMITH HELPER Date : 08/06/2015 PRESS SMITH HELPER 09/17/2015 CDT 10/29/2015 CDT 11/12/2015 CDT Location [...] weeks One week Plan completed by : MELI Edwards RN - 08/11/2016 10:52 PRESS SMITH HELPER MELI CAMPO RN - 08/11/2016 10:52 PRESS SMITH HELPER MELI CAMPO - 08/11/2016 10:52 MELI ROJO RN - 08/11/2016 10:52 PRESS SMITH HELPER Date : 11/19/2015 CDT 12/03/2015 CDT 12/31/2015 [...] month One month Plan completed by : MELI Pickett RN - 08/11/2016 10:52 PRESS SMITH HELPER MELI CAMPO RN - 08/11/2016 10:52 PRESS SMITH HELPER MELI CAMPO - 08/11/2016 10:52 PRESS SMITH HELPER MELI CAMPO RN - 08/11/2016 10:52 PRESS SMITH HELPER Date : 02/19/2016 CDT 02/20/2016 CDT 02/21/2016 CDT 02/22/2016 CDT Location of INR sample : [facility] Type of Sample : Venous [...] by : Tyshawn Brizuela, Pharm.D. Tyshawn Brizuela, PharmMichaelD. BAUDILIO, PharmD Eliseo Quezada, Alida. MELI CAMPO RN - 08/11/2016 10:52 PRESS SMITH HELPER MELI CAMPO RN - 08/11/2016 10:52 PRESS SMITH HELPER MELI CAMPO - 08/11/2016 10:52 PRESS SMITH HELPER MELI CAMPO RN - 08/11/2016 10:52 PRESS SMITH HELPER Date : 02/23/2016 CDT 02/24/2016 CDT 02/25/2016 CDT 02/26/2016 CDT Location of INR sample : [facility] Type of Sample : [...] One day Plan completed by : Eliseo Quezada PharmD. Eliseo Quezada, PharmValentina. Tyshawn Brizuela, Pharm.D. Eliseo Quezada, PharmValentina. MELI CAMPO RN - 08/11/2016 10:52 PRESS SMITH HELPER MELI CAMPO RN - 08/11/2016 10:52 PRESS SMITH HELPER MELI CAMPO - 08/11/2016 10:52 PRESS SMITH HELPER MELI CAMPO RN - 08/11/2016 10:52 PRESS SMITH HELPER Date : 02/27/2016 CDT 03/01/2016 CDT 03/04/2016 CDT 03/07/2016 CDT Location of INR sample : Hospital [facility] Lab Clinic Type of Sample : Venous Capillary/POC Venous Capillary/POC INR Result : 2.07 2.5 2.2 2.4 Warfarin Dose : 2 mg daily 2mg daily 2.5mg 03/04-03/06 2.5mg Mon,Sat,Mon Total Weekly Warfarin Dose : 14 15.5 Comment : Pt being discharged on Bactrim. Will order picker/assembler rx for 2 mg tabs On bactrim 2 days left, has f/u in [place] on Monday. Pt mother states plan to return to [facility] on 03/06. next f/u [place] be [place]. 2mg TuWTh Rev'd with Jelly/Pharmacist,called to mom/Fabiola pt done with Willie Henriquez today pt is going back to [place] with mom for another 1-2wks,she would like INR checked in [place] but [place] IN[facility] Clinic to follow will send msg to INR Clinic Stay on 2.5mg daily Recommend Recheck : Three days Three days, Other: in [place] Other: 03/07/16 Other: 4 days Plan completed by : MELI Bone RN, RN, RN - 08/11/2016 10:52 PRESS SMITH HELPER MELI CAMPO RN - 08/11/2016 10:52 PRESS SMITH HELPER MELI CAMPON - 08/11/2016 10:52 PRESS SMITH HELPER MELI CAMPO RN - 08/11/2016 10:52 PRESS SMITH HELPER Date : 03/11/2016 CDT 03/16/2016 CDT 03/31/2016 [...] pt will be staying with sister in [facility] next week she will have INR drawn in [place] again called to Fabiola/pt to do next INR at [facility] on a ./no changes called to Fabiola/no changes called to Fabiola/Mom,no changes/missed doses Recommend Recheck : Other: 03/16/16 Other: 03/31/16(2 weeks) One month Two weeks Plan completed by : MELI Lorenzana RN - 08/11/2016 10:52 PRESS SMITH HELPER MELI CAMPO RN - 08/11/2016 10:52 MELI ROJO - 08/11/2016 10:52 MELI ROJO RN - 08/11/2016 10:52 PRESS SMITH HELPER Date : 05/11/2016 PRESS SMITH HELPER 05/12/2016 PRESS SMITH HELPER 05/17/2016 PRESS SMITH HELPER 05/24/2016 PRESS SMITH HELPER Location of INR sample : Other: [place]: [place] Type of Sample : INR Result : 1.6 2.4 1.8 Warfarin Dose : 2.5mg daily 2.5mg daily 5mg 05/24 then 2.5mg daily Total Weekly Warfarin Dose : 17.5 Comment : Per Mom/Fabiola, pt disch from [facility], fell & fx left humerus 05/08, surg [...] week One week Plan completed by : MELI ODEN RN - 08/11/2016 10:52 PRESS SMITH HELPER MELI CAMPO RN - 08/11/2016 10:52 PRESS SMITH HELPER MELI CAMPO - 08/11/2016 10:52 MELI ROJO RN - 08/11/2016 10:52 PRESS SMITH HELPER Date : 06/01/2016 PRESS SMITH HELPER 06/06/2016 PRESS SMITH HELPER 06/10/2016 PRESS SMITH HELPER 06/13/2016 PRESS SMITH HELPER Location of INR sample : Other: [place] Other: [facility] Other: [facility] Type of Sample : INR Result : [...] days Other: 06/17/16 Plan completed by : MELI Wiggins RN - 08/11/2016 10:52 PRESS SMITH HELPER MELI CAMPO RN - 08/11/2016 10:52 PRESS SMITH HELPER MELI CAMPO - 08/11/2016 10:52 PRESS SMITH HELPER MELI CAMPO RN - 08/11/2016 10:52 PRESS SMITH HELPER Date : 06/17/2016 PRESS SMITH HELPER 06/24/2016 PRESS SMITH HELPER 07/07/2016 PRESS SMITH HELPER 07/28/2016 PRESS SMITH HELPER Location of INR sample : Other: [facility] CF Other: [facility] Lab Lab Type of Sample : Venous [...] changes,pt is having tooth pulled 08/31/16 at [facility] Oral Surgery will need INR checked that am scheduled.letter faxed to [facility] oral surgery to see what INR needs leon Recommend Recheck : One week Other: 07/07/16 Three weeks Two weeks Plan completed by : MELI BUCKNER RN - 08/11/2016 10:52 PRESS SMITH HELPER MELI CAMPO RN - 08/11/2016 10:52 PRESS SMITH HELPER MELI CAMPO - 08/11/2016 10:52 PRESS SMITH HELPER MELI CAMPO RN - 08/11/2016 10:52 PRESS SMITH HELPER Date : 08/11/2016 PRESS SMITH HELPER Location of INR sample : Lab Type of Sample : Venous INR Result : 2.8 Warfarin Dose : 5mg Sun/Tues/Thus and 2.5mg all other days Total Weekly Warfarin Dose : 25 Comment : called to mom/Fabiola,no changes,having tooth pulled 08/31 INR to be below 2.5-3.0 per oral surgeon letter,suggested a INR check couple days before but per mom too hard to get pt to clinic for lab MELI CAMPO RN - 08/11/2016 10:57 PRESS SMITH HELPER Recommend Recheck : Other: 08/31/16 Plan completed by : MELI WINTER RN - 08/11/2016 10:52 PRESS SMITH HELPER Anticoagulation Assessment / History Visit : Phone management Plan of Care Date : 01/29/2008 CDT Primary Physician Anticoagulation : TASHA HENRIQUEZ MD 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 POWERCHART Document Id: [id number] PRESS SMITH HELPER!5 S SMITH HELPER Miscellaneous - Meli Campo R.N. - 08/11/2016 10:25 AM CST Results Notification From: MELI CAMPO RN ( Anticoagulation Nurse) To: Anticoagulation Nurse; Sent: 08/11/2016 10:25:39 PRESS SMITH HELPER Show up: 08/11/2016 10:26:00 PRESS SMITH HELPER Subject: Results Notification Results: Date Result Name Value Ref Range 08/11/2016 08:00 PT 30.9 second(s) (8.8 - 11.9) 08/11/2016 08:00 INR 2.8 (0.9 - 1.2) Source: [facility] POWERCHART Document Id: [id number] Electronically signed by Conversion, [facility] [employer] General Sales Manager [id number] at 12/06/2016 12:43 AM CDT documented in this encounter Plan of Treatment Not on filedocumented as of this encounter Procedures Procedure Name Priority Date/Time Associated Comments Diagnosis PROTHROMBIN TIME Routine 08/11/2016 8:00 AM Resul ts for this (PT), P PRESS SMITH HELPER procedure are i n the results section. documented in this encounter Results (ABNORMAL) PT (Prothrombin Time) with INR (08/11/2016 8:00 AM PRESS SMITH HELPER) [facility] Method Time Signature Prothrombin 30.9 (H) 8.8 - 11.9 POWERCHART Time, P [...] Time Location / / Volume Laterality Blood 08/11/2016 8:00 AM PRESS SMITH HELPER Tasha Henriquez M.D. LAB BLOOD ADD-ON Performing Organization Address City/State/ZIP Code Phon e Number POWERCHART documented in this encounter Visit Diagnoses Not on filedocumented in this encounter
--- OUTSIDE RECORDS SUMMARY | 2022-04-25 15:59 | XMS_ITS | Encounter Summary ---
:1975 Author Organization [facility] Address [address] [place] [id number] Care Team Providers Name Role Phone Unavailable Primary Care Provider Unavailable Encounter Details Date Type Department Care Team Description 09/29/2016 Hospital Encounter HX [facility] Marsha Henriquez M.D. [address] [place], [place] [address] (Wo rk) Social History [...] - - Height 146 cm (4' 9.48) 09/29/2016 6:41 AM CDT Body Mass Index - - [...] Notes Miscellaneous - Khadar Banda R.N. - 09/29/2016 9:57 AM CDT Anticoagulation Patient Intake Anticoagulation Patient Intake Entered On: 09/29/2016 9:59 CDT Performed On: 09/29/2016 9:57 CDT by KHADAR BANDA RN Plan INR goal range : 2.0 - 3.0 Duration of Therapy : Lifelong Tablet Size : 2 mg, 5 mg KHADAR BANDA RN - 09/29/2016 9:57 CDT Anticoagulation Management Plan Grid Date : [...] darya BURGESS JM KHADAR Mae RN - 09/29/2016 9:57 CDT KHADAR BANDA RN - 09/29/2016 9:57 CDT KHADAR BANDA RN - 09/29/2016 9:57 CDT KHADAR BANDA RN - 09/29/2016 9:57 CDT Date : 12/26/2013 CDT 01/30/2014 CDT [...] completed by : KHADAR Cho RN - 09/29/2016 9:57 CDT KHADAR BANDA RN - 09/29/2016 9:57 CDT KHADAR BANDA RN - 09/29/2016 9:57 CDT KHADAR BANDA RN - 09/29/2016 9:57 CDT Date : 03/20/2014 CDT 03/27/2014 CDT [...] by : darya lackey LM /pharmacy KHADAR BANAD RN - 09/29/2016 9:57 CDT KHADAR BANDA RN - 09/29/2016 9:57 CDT KHADAR BANDA RN - 09/29/2016 9:57 CDT KHADAR BANDA RN - 09/29/2016 9:57 CDT Date : 04/17/2014 CDT 04/24/2014 CDT 05/01/2014 DENTAL SERVICE CHIEF 05/15/2014 DENTAL SERVICE CHIEF Location of INR sample : Lab Lab [...] will trynoted dose called to mom Fabiola [phone] called to Fabiola/no changes Called to mother/Fabiola, not awareof any changes Recommend Recheck : One week One week Two weeks Two weeks Plan completed by : KHADAR HACKETT RN - 09/29/2016 9:57 CDT KHADAR BANDA RN - 09/29/2016 9:57 CDT KHADAR BANDA RN - 09/29/2016 9:57 CDT KHADAR BANDA RN - 09/29/2016 9:57 CDT Date : 06/03/2014 DENTAL SERVICE CHIEF 06/05/2014 DENTAL SERVICE CHIEF 06/10/2014 DENTAL SERVICE CHIEF 06/11/2014 DENTAL SERVICE CHIEF Location of INR sample : Lab Type [...] Called motherFabiola. Hue will be staying in [place] 2wks post-surgery & have INR drawn there. [...] lovenox tomorrow AM as ordered. INR in [place] for next several weeks as pt will be recovering there. Recommend Recheck : Other: depending on Dr. Henriquez's preop. Other: 06/18 Other: 06/13/14 Plan completed by : KHADAR SANDERS RN - 09/29/2016 9:57 CDT KHADAR BANDA RN - 09/29/2016 9:57 CDT KHADAR BANDA RN - 09/29/2016 9:57 CDT KHADAR BANDA RN - 09/29/2016 9:57 CDT Date : 06/14/2014 DENTAL SERVICE CHIEF 06/14/2014 DENTAL SERVICE CHIEF 06/16/2014 DENTAL SERVICE CHIEF 06/23/2014 DENTAL SERVICE CHIEF Location of INR sample : Clinic Lab Lab Type of Sample : Venous Venous INR Result : 1.3 on 06/13 2.4 faxed from lab 2.0 Warfarin Dose : (pt took 2.5mg 06/13) 5mg Sat and 5mg Sun (06/14 and 06/15) 5mg Mon and 2.5mg all other days 5mg Mon and 2.5mg all other days Total Weekly Warfarin Dose : 20 20 Comment : [place] lab called with INR result from 06/13, reported they left a message with Dr. Henriquez and hadn't heard back, spoke with motherFabiola, and gave doses, continue Lovenox and repeat INR 06/16, message left with INR clinic in [place] to contact [facility] Please contact [email or web address] lab on 06/16 for result and may call Fabiola at [phone] with instructions call to Fabiola/will stop Lovenox injections and take noted dose/pt has an appt here in [place] 06/23 so will do lab appt here that day Called to Fabiola/ Hue will be back at [facility] by next draw. will have done on . no changes to meds/diet. Recommend Recheck : Two days One week Two weeks Plan completed by : KHADAR Mattson LM RN - 09/29/2016 9:57 CDT KHADAR BANDA RN - 09/29/2016 9:57 CDT KHADAR BANDA RN - 09/29/2016 9:57 CDT KHADAR BANDA RN - 09/29/2016 9:57 CDT Date : 07/10/2014 DENTAL SERVICE CHIEF 07/17/2014 DENTAL SERVICE CHIEF 07/31/2014 DENTAL SERVICE CHIEF 09/11/2014 CDT Location of INR sample : [...] completed by : KHADAR Dumont RN - 09/29/2016 9:57 CDT KHADAR BANDA RN - 09/29/2016 9:57 CDT KHADAR BANDA RN - 09/29/2016 9:57 CDT KHADAR BANDA RN - 09/29/2016 9:57 CDT Date : 09/12/2014 CDT 09/25/2014 CDT [...] Mom/Fabiola, no changes, rev'd w/PRATIKalvorsen/Pharmacy called to Mom/Fbaiola, no changes Recommend Recheck : Two weeks One week One week Two weeks Plan completed by : KHADAR Rondon RN - 09/29/2016 9:57 CDT KHADAR BANDA RN - 09/29/2016 9:57 CDT KHADAR BANDA RN - 09/29/2016 9:57 CDT KHADAR BANDA RN - 09/29/2016 9:57 CDT Date : 10/23/2014 CDT 11/13/2014 CDT [...] completed by : KHADAR Toro RN - 09/29/2016 9:57 CDT KHADAR BANDA RN - 09/29/2016 9:57 CDT KHADAR BANDA RN - 09/29/2016 9:57 CDT KHADAR BANDA RN - 09/29/2016 9:57 CDT Date : 12/04/2014 CDT 12/18/2014 CDT [...] completed by : KHADAR Vargas RN - 09/29/2016 9:57 CDT KHADAR BANDA RN - 09/29/2016 9:57 CDT KHADAR BANDA RN - 09/29/2016 9:57 CDT KHADAR BANDA RN - 09/29/2016 9:57 CDT Date : 02/05/2015 CDT 02/26/2015 CDT [...] completed by : KHADAR SLOAN RN - 09/29/2016 9:57 CDT KHADAR BANDA RN - 09/29/2016 9:57 CDT KHADAR BANDA RN - 09/29/2016 9:57 CDT KHADAR BANDA RN - 09/29/2016 9:57 CDT Date : 04/09/2015 CDT 05/07/2015 DENTAL SERVICE CHIEF 06/04/2015 DENTAL SERVICE CHIEF 07/02/2015 DENTAL SERVICE CHIEF Location of INR sample : Lab Lab [...] completed by : KHADAR Dowell RN - 09/29/2016 9:57 CDT KHADAR BANDA RN - 09/29/2016 9:57 CDT KHADAR BANDA RN - 09/29/2016 9:57 CDT KHADAR BANDA RN - 09/29/2016 9:57 CDT Date : 08/06/2015 DENTAL SERVICE CHIEF 09/17/2015 CDT 10/29/2015 CDT 11/12/2015 CDT Location [...] completed by : KHADAR Rodriguez RN - 09/29/2016 9:57 CDT KHADAR BANDA RN - 09/29/2016 9:57 CDT KHADAR BANDA RN - 09/29/2016 9:57 CDT KHADAR BANDA RN - 09/29/2016 9:57 CDT Date : 11/19/2015 CDT 12/03/2015 CDT [...] completed by : KHADAR Newman RN - 09/29/2016 9:57 CDT KHADAR BANDA RN - 09/29/2016 9:57 CDT KHADAR BANDA RN - 09/29/2016 9:57 CDT KHADAR BANDA RN - 09/29/2016 9:57 CDT Date : 02/19/2016 CDT 02/20/2016 CDT 02/21/2016 CDT 02/22/2016 CDT Location of INR sample : Hospital [...] completed by : Tyshawn Brizuela, Pharm.DMichael Brizuela, Pharm.DMichael ASTUDILLO, PharmD Eliseo Quezada PharmD. KHADAR BANDA RN - 09/29/2016 9:57 CDT KHADAR BANDA RN - 09/29/2016 9:57 CDT KHADAR BANDA RN - 09/29/2016 9:57 CDT KHADAR BANDA RN - 09/29/2016 9:57 CDT Date : 02/23/2016 CDT 02/24/2016 CDT 02/25/2016 CDT 02/26/2016 CDT Location of INR sample : [facility] Type of Sample : Venous Venous [...] by : Eliseo Quezada, PharmD. Eliseo Quezada, PharmDMichael Brizuela, Pharm.DMichael Quezada, PharmD. KHADAR BANDA RN - 09/29/2016 9:57 CDT KHADAR BANDA RN - 09/29/2016 9:57 CDT KHADAR BANDA RN - 09/29/2016 9:57 CDT KHADAR BANDA RN - 09/29/2016 9:57 CDT Date : 02/27/2016 CDT 03/01/2016 CDT [...] Pt mother states plan to return to [facility] on 03/06. next f/u will be in [facility]. 2mg TuWTh Rev'd with Jelly/Pharmacist,called to mom/Fabiola [...] : KHADAR Diana RN, RN RN - 09/29/2016 9:57 CDT KHADAR BANDA RN - 09/29/2016 9:57 CDT KHADAR BANDA RN - 09/29/2016 9:57 CDT KHADAR BANDA RN - 09/29/2016 9:57 CDT Date : 03/11/2016 CDT 03/16/2016 CDT [...] [place] she [place] drawn [place] again called to Fabiola/pt to do next INR at [facility] on a ./no changes called to Fabiola/no changes called to Fabiola/Mom,no changes/missed doses Recommend Recheck : Other: 03/16/16 Other: 03/31/16(2 weeks) One month Two weeks Plan completed by : KHADAR Conteh RN - 09/29/2016 9:57 CDT KHADAR BANDA RN - 09/29/2016 9:57 CDKHADAR BERNSTEIN RN - 09/29/2016 9:57 CDT KHADAR BANDA RN - 09/29/2016 9:57 CDT Date : 05/11/2016 DENTAL SERVICE CHIEF 05/12/2016 DENTAL SERVICE CHIEF 05/17/2016 DENTAL SERVICE CHIEF 05/24/2016 DENTAL SERVICE CHIEF Location of INR sample : Other: [place]: [place]: [place] Type of Sample : INR Result : 1.6 2.4 1.8 Warfarin Dose : 2.5mg daily 2.5mg daily 5mg 05/24 then 2.5mg daily Total Weekly Warfarin Dose : 17.5 Comment : Per Mom/Fabiola, pt disch from [facility] today, fell & fx left humerus 05/08, surg 05/09, INR 1.3 on 05/08, 1.5 on 05/09, 1.6 on 05/10 & 1.4 05/11, has had 2.5mg daily since 05/09, going to for INR 05/12 & result to be faxed to us, not on Lovenox rev'd with JimPharmacist,called to mom/Fabiola,she will have it done in [place] Called to Mom/Fabiola, no changes Called to Mom/Fabiola, no missed doses, took pain pill last night, has not taken any for a while, no other changes Recommend Recheck : Other: 05/12/16 Other: 05/17/16 One week One week Plan completed by : KHADAR MAYORGA RN - 09/29/2016 9:57 CDT KHADAR BANDA RN - 09/29/2016 9:57 CDT KHADAR BANDA RN - 09/29/2016 9:57 CDT KHADAR BANDA RN - 09/29/2016 9:57 CDT Date : 06/01/2016 DENTAL SERVICE CHIEF 06/06/2016 DENTAL SERVICE CHIEF 06/10/2016 DENTAL SERVICE CHIEF 06/13/2016 DENTAL SERVICE CHIEF Location of INR sample : Other: [place] Other: [facility] CF Other: [facility] CF Type of Sample : INR [...] with Quintin/Pharmacy/called to Fabiola Hernandez rev'd with Prasad/Ramincist,called to mom Recommend Recheck : Other: 06/06/2016 Other: 06/10/16 Three days Other: 06/17/16 Plan completed by : darya BURGESS ly KHADAR BAILEY RN - 09/29/2016 9:57 CDT KHADAR BANDA RN - 09/29/2016 9:57 CDT KHADAR BANDA RN - 09/29/2016 9:57 CDT KHADAR BANDA RN - 09/29/2016 9:57 CDT Date : 06/17/2016 DENTAL SERVICE CHIEF 06/24/2016 DENTAL SERVICE CHIEF 07/07/2016 DENTAL SERVICE CHIEF 07/28/2016 DENTAL SERVICE CHIEF Location of INR sample : Other: [facility] CF Other: [facility] CF Lab Lab Type of Sample [...] completed by : KHADAR VIRK RN - 09/29/2016 9:57 CDT KHADAR BANDA RN - 09/29/2016 9:57 CDT KHADAR BANDA RN - 09/29/2016 9:57 CDT KHADAR BANDA RN - 09/29/2016 9:57 CDT Date : 08/11/2016 DENTAL SERVICE CHIEF 08/31/2016 DENTAL SERVICE CHIEF 09/29/2016 CDT Location of INR sample : Lab Lab Lab Type of Sample : Venous Venous Venous INR Result : 2.8 2.5 2.4 Warfarin Dose : 5mg Sun/Tues/Thus and 2.5mg [...] Called to Mom/Fabiola, no changes or concerns Recommend Recheck : Other: 08/31/16 One month One month Plan completed by : KHADAR Rodriguez L RN - 09/29/2016 9:57 CDT KHADAR BANDA RN - 09/29/2016 9:57 CDT KHADAR BANDA RN - 09/29/2016 9:57 CDT Anticoagulation Assessment / History Visit : Phone management Plan of Care Date : 01/29/2008 CDT Primary Physician Anticoagulation : TASHA HENRIQUEZ MD 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 - 09/29/2016 9:46 AM CDT Results Notification From: KHADAR BANDA RN ( Anticoagulation Nurse) To: Anticoagulation Nurse; Sent: 09/29/2016 09:46:20 CDT Show up: 09/29/2016 09:47:00 CDT Subject: Results Notification Results: Date Result Name Value Ref Range 09/29/2016 08:00 PT 26.4 second(s) (8.8 - 11.9) 09/29/2016 08:00 INR 2.4 (0.9 - 1.2) Source: [employer] Document Id: [id number] documented in this encounter Plan of Treatment Not on filedocumented as of this encounter Procedures Procedure Name Priority Date/Time Associated Comments Diagnosis PROTHROMBIN TIME Routine 09/29/2016 8:00 AM Resul ts for this (PT), P CDT procedure are i n the results section. documented in this encounter Results (ABNORMAL) PT (Prothrombin Time) with INR (09/29/2016 8:00 AM CDT) [facility] Method Time Signature Prothrombin 26.4 (H) 8.8 - 11.9 POWERCHART Time, P SECONDS INR 2.4 (H) 0.9 - 1.2 POWERCHART Comment: Recommended INR for prophylaxis/treatmen t of Venous Thrombosis, Pulmonary Embolism, Myocardial Infarction, and Embolism from Atrial Fibrillation is 2.0- 3.0 (Standard Therapy) Recommended INR for Mechanical Heart Tejal ves and recurrent Systemic Embolism is 2.5-3.5 (Intensive Therapy) Specimen (Source) Anatomical Collection Method Collection Time Re ceived Time Location / / Volume Laterality Blood 09/29/2016 8:00 AM CDT Tasha Henriquez M.D. LAB BLOOD ADD-ON Performing Organization Address City/State/ZIP Code Phon e Number POWERCHART documented in this encounter Visit Diagnoses Not on filedocumented in this encounter
--- OUTSIDE RECORDS SUMMARY | 2022-04-25 15:59 | XMS_ITS | Encounter Summary ---
:1975 Author Organization [facility] Address [address] [place] [address] Care Team Providers Name Role Phone Tasha Henriquez M.D. Primary Care Provider Encounter Details Date Type Department Care Team Description 01/19/2017 Hospital Encounter HX [facility] Marsha Henriquez M.D. [address] [place], [place] [address] (Wo rk) Social History [...] - - Height 146 cm (4' 9.48) 01/19/2017 6:49 AM CDT Body Mass Index - - [...] Notes Miscellaneous - Khadar Banda R.N. - 01/19/2017 10:46 AM CDT Anticoagulation Patient Intake Anticoagulation Patient Intake Entered On: 01/19/2017 10:48 CDT Performed On: 01/19/2017 10:46 CDT by KHADAR BANDA RN Plan INR goal range : 2.0 - 3.0 Duration of Therapy : Lifelong Tablet Size : 2 mg, 5 mg KHADAR BANDA RN - 01/19/2017 10:46 CDT Anticoagulation Management Plan Grid Date : [...] Two weeks Plan completed by : KHADAR Manning RN - 01/19/2017 10:46 CDT KHADAR BANDA RN - 01/19/2017 10:46 KHADAR HILL RN - 01/19/2017 10:46 KHADAR HILL RN - 01/19/2017 10:46 CDT Date : 12/26/2013 CDT 01/30/2014 CDT [...] a long time, no bleeding now left [facility] for Fabiola,call if changes Recommend Recheck : Other: 5 weeks Other: 5 weeks Other: 03/10/2014 Other: 03/20/14 Plan completed by : KHADAR Cho RN - 01/19/2017 10:46 KHADAR HILL RN - 01/19/2017 10:46 KHADAR HILL RN - 01/19/2017 10:46 KHADAR HILL RN - 01/19/2017 10:46 CDT Date : 03/20/2014 CDT 03/27/2014 CDT [...] lackey LM /pharmacy KHADAR BANDA RN - 01/19/2017 10:46 CDT KHADAR BANDA RN - 01/19/2017 10:46 CDT KHADAR BANDA RN - 01/19/2017 10:46 CDT KHADAR BANDA RN - 01/19/2017 10:46 CDT Date : 04/17/2014 CDT 04/24/2014 CDT 05/01/2014 INFANTRY INDIRECT FIRE CREWMEMBER 05/15/2014 INFANTRY INDIRECT FIRE CREWMEMBER Location of INR sample : Lab Lab [...] will trynoted dose called to mom Fabiola [phone] called to Fabiola/no changes Called to mother/Fabiola, not awareof any changes Recommend Recheck : One week One week Two weeks Two weeks Plan completed by : KHADAR HACKETT RN - 01/19/2017 10:46 CDT KHADAR BANDA RN - 01/19/2017 10:46 CDT KHADAR BANDA RN - 01/19/2017 10:46 CDT KHADAR BANDA RN - 01/19/2017 10:46 CDT Date : 06/03/2014 INFANTRY INDIRECT FIRE CREWMEMBER 06/05/2014 INFANTRY INDIRECT FIRE CREWMEMBER 06/10/2014 INFANTRY INDIRECT FIRE CREWMEMBER 06/11/2014 INFANTRY INDIRECT FIRE CREWMEMBER Location of INR sample : Lab Type [...] Called motherFabiola. Hue will be staying in [place] 2wks post-surgery & have INR drawn there. [...] lovenox tomorrow AM as ordered. INR in [place] for next several weeks as pt will be recovering there. Recommend Recheck : Other: depending on Dr. Henriquez's preop. Other: 06/18 Other: 06/13/14 Plan completed by : KHADAR SANDERS RN - 01/19/2017 10:46 CDT KHADAR BANDA RN - 01/19/2017 10:46 CDT KHADAR BANDA RN - 01/19/2017 10:46 PATRICIAT KHADAR BANDA RN - 01/19/2017 10:46 CDT Date : 06/14/2014 INFANTRY INDIRECT FIRE CREWMEMBER 06/14/2014 INFANTRY INDIRECT FIRE CREWMEMBER 06/16/2014 INFANTRY INDIRECT FIRE CREWMEMBER 06/23/2014 INFANTRY INDIRECT FIRE CREWMEMBER Location of INR sample : Clinic Lab Lab Type of Sample : Venous Venous INR Result : 1.3 on 06/13 2.4 faxed from lab 2.0 Warfarin Dose : (pt took 2.5mg 06/13) 5mg Sat and 5mg Sun (06/14 and 06/15) 5mg Mon and 2.5mg all other days 5mg Mon and 2.5mg all other days Total Weekly Warfarin Dose : 20 20 Comment : [facility] called with INR result from 06/13, reported they left a message with Dr. Henriquez and hadn't heard back, spoke with mother, Fabiola, and gave doses, continue Lovenox and repeat INR 06/16, message left with INR clinic in [place] to contact [facility] Please contact [facility] on 06/16 for result and may call Fabiola at [phone] with instructions call to Fabiola/will stop Lovenox injections and take noted dose/pt has an appt here in [place] 06/23 so will do lab appt here that day Called to Fabiola/ Hue will be back at [facility] by next draw. will have done on . no changes to meds/diet. Recommend Recheck : Two days One week Two weeks Plan completed by : KHADAR Mattson LM RN - 01/19/2017 10:46 CDT KHADAR BANDA RN - 01/19/2017 10:46 CDT KHADAR BANDA RN - 01/19/2017 10:46 CDT KHADAR BANDA RN - 01/19/2017 10:46 CDT Date : 07/10/2014 INFANTRY INDIRECT FIRE CREWMEMBER 07/17/2014 INFANTRY INDIRECT FIRE CREWMEMBER 07/31/2014 INFANTRY INDIRECT FIRE CREWMEMBER 09/11/2014 CDT Location of INR sample : [...] completed by : KHADAR Dumont RN - 01/19/2017 10:46 CDT KHADAR BANDA RN - 01/19/2017 10:46 CDT KHADAR BANDA RN - 01/19/2017 10:46 CDT KHADAR BANDA RN - 01/19/2017 10:46 CDT Date : 09/12/2014 CDT 09/25/2014 CDT [...] doses Called to Mom/Fabiola, no changes, rev'd w/Arvindvocandaceen/Pharmacy called to Mom/Fabiola, no changes Recommend Recheck : Two weeks One week One week Two weeks Plan completed by : MARIA GUADALUPE ly JM KHADAR Mae RN - 01/19/2017 10:46 CDT KHADAR BANDA RN - 01/19/2017 10:46 CDT KHADAR BANDA RN - 01/19/2017 10:46 CDT KHADAR BANDA RN - 01/19/2017 10:46 CDT Date : 10/23/2014 CDT 11/13/2014 CDT [...] called to Mom/Fabiola, no changes called to MomFabiola, 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/no bleeding/consult with Quintin/Pharmacy and called Mom with orders Per MomAlbinaMeredith, no changes, has been drinking some Kiwi Juice, no bleeding/consult with Quintin/Pharmacy Called to mom /Fabiola, no changes, rev'd w/BCarlson/Pharmacy Recommend Recheck : Three weeks One week One week One week Plan completed by : KHADAR Toro RN - 01/19/2017 10:46 CDT KHADAR BANDA RN - 01/19/2017 10:46 CDT KHADAR BANDA RN - 01/19/2017 10:46 CDT KHADAR BANDA RN - 01/19/2017 10:46 CDT Date : 12/04/2014 CDT 12/18/2014 CDT [...] completed by : KHADAR Vargas RN - 01/19/2017 10:46 CDT KHADAR BANDA RN - 01/19/2017 10:46 CDT KHADAR BANDA RN - 01/19/2017 10:46 CDT KHADAR BANDA RN - 01/19/2017 10:46 CDT Date : 02/05/2015 CDT 02/26/2015 CDT [...] completed by : KHADAR SLOAN RN - 01/19/2017 10:46 CDT KHADAR BANDA RN - 01/19/2017 10:46 CDT KHADAR BANDA RN - 01/19/2017 10:46 CDT KHADAR BANDA RN - 01/19/2017 10:46 CDT Date : 04/09/2015 CDT 05/07/2015 INFANTRY INDIRECT FIRE CREWMEMBER 06/04/2015 INFANTRY INDIRECT FIRE CREWMEMBER 07/02/2015 INFANTRY INDIRECT FIRE CREWMEMBER Location of INR sample : Lab Lab [...] completed by : KHADAR Dowell RN - 01/19/2017 10:46 CDT KHADAR BANDA RN - 01/19/2017 10:46 CDT KHADAR BANDA RN - 01/19/2017 10:46 CDT KHADAR BANDA RN - 01/19/2017 10:46 CDT Date : 08/06/2015 INFANTRY INDIRECT FIRE CREWMEMBER 09/17/2015 CDT 10/29/2015 CDT 11/12/2015 CDT Location [...] weeks One week Plan completed by : INESSA JM ly JM KHADAR BANDA RN - 01/19/2017 10:46 CDT KHADAR BANDA RN - 01/19/2017 10:46 CDT KHADAR BANDA RN - 01/19/2017 10:46 CDT KHADAR BANDA RN - 01/19/2017 10:46 CDT Date : 11/19/2015 CDT 12/03/2015 CDT [...] month One month Plan completed by : darya JM ly KHADAR CAICEDO RN - 01/19/2017 10:46 CDT KHADAR BANDA RN - 01/19/2017 10:46 CDT KHADAR BANDA RN - 01/19/2017 10:46 CDT KHADAR BANDA RN - 01/19/2017 10:46 CDT Date : 02/19/2016 CDT 02/20/2016 CDT [...] Tyshawn Brizuela, Pharm.D. BAUDILIO, PharmD Eliseo Quezada, PharmD. KHADAR BANDA RN - 01/19/2017 10:46 CDT KHADAR BANDA RN - 01/19/2017 10:46 CDT KHADAR BANDA RN - 01/19/2017 10:46 CDT KHADAR BANDA RN - 01/19/2017 10:46 CDT Date : 02/23/2016 CDT 02/24/2016 CDT [...] PharmD. Tyshawn Brizuela, Pharm.D. Eliseo Quezada, PharmD. KHADAR BANDA RN - 01/19/2017 10:46 CDT KHADAR BANDA RN - 01/19/2017 10:46 CDT KHADAR BANDA RN - 01/19/2017 10:46 CDT KHADAR BANDA RN - 01/19/2017 10:46 CDT Date : 02/27/2016 CDT 03/01/2016 CDT 03/04/2016 CDT 03/07/2016 CDT Location of INR sample : [facility] Lab Clinic Type of Sample : Venous Capillary/POC Venous Capillary/POC INR Result : 2.07 2.5 2.2 2.4 Warfarin Dose : 2 mg daily 2mg daily 2.5mg 03/04-03/06 2.5mg Mon,Mon,Mon Total Weekly Warfarin Dose : 14 15.5 Comment : Pt being discharged on Bactrim. Will shrimp picker rx for 2 mg tabs On bactrim 2 days left, has f/u in [place] on Monday. Pt mother states plan to return to [facility] on 03/06. next f/u will be [...] : KHADAR Diana RN, RN RN - 01/19/2017 10:46 CDT KHADAR BANDA RN - 01/19/2017 10:46 CDT KHADAR BANDA RN - 01/19/2017 10:46 CDT KHADAR BANDA RN - 01/19/2017 10:46 CDT Date : 03/11/2016 CDT 03/16/2016 CDT [...] pt will be staying with sister in [facility] next week she will have INR drawn in again called to Fabiola/pt to do next INR at on ./no changes called to Fabiola/no changes called to Fabiola/Mom,no changes/missed doses Recommend Recheck : Other: 03/16/16 Other: 03/31/16(2 weeks) One month Two weeks Plan completed by : JENIFER PRECIADO ly NB KHADAR BANDA RN - 01/19/2017 10:46 CDT KHADAR BANDA RN - 01/19/2017 10:46 CDT KHADAR BANDA RN - 01/19/2017 10:46 CDT KHADAR BANDA RN - 01/19/2017 10:46 CDT Date : 05/11/2016 INFANTRY INDIRECT FIRE CREWMEMBER 05/12/2016 INFANTRY INDIRECT FIRE CREWMEMBER 05/17/2016 INFANTRY INDIRECT FIRE CREWMEMBER 05/24/2016 INFANTRY INDIRECT FIRE CREWMEMBER Location of INR sample : Other: [place] Other: [place] Other: [place] Type of Sample : INR Result : 1.6 2.4 1.8 Warfarin Dose : 2.5mg daily 2.5mg daily 5mg 05/24 then 2.5mg daily Total Weekly Warfarin Dose : 17.5 Comment : Per Mom/Fabiola, pt disch from [facility] today, fell & fx left humerus 05/08, [...] completed by : KHADAR MAYORGA RN - 01/19/2017 10:46 CDT KHADAR BANDA RN - 01/19/2017 10:46 CDT KHADAR BANDA RN - 01/19/2017 10:46 CDT KHADAR BANDA RN - 01/19/2017 10:46 CDT Date : 06/01/2016 INFANTRY INDIRECT FIRE CREWMEMBER 06/06/2016 INFANTRY INDIRECT FIRE CREWMEMBER 06/10/2016 INFANTRY INDIRECT FIRE CREWMEMBER 06/13/2016 INFANTRY INDIRECT FIRE CREWMEMBER Location of INR sample : Other: [place] Other: [facility] Other: [facility] Type of Sample : INR Result : 1.6 1.4 1.6 2.2 Warfarin Dose : 5mg 12/8, 2.5mg 12/9, 12/, 12/11 5mg 12/12 & 12/13,2.5mg 12/14 & 12/15 5mg12/16, 12/17, 2.5mg 12/18 2.5mg Mon,Wed,fri and 5mg all other days Total Weekly Warfarin Dose : Comment : processed 06/02/had 2.5mg last night/called to Mom/Fabiola, no changes rev'd with Burke/Pharmacist,called to mom/Fabiola pt is staying with sister no changes she is aware of will be back 06/10 rev'd with Quintin/Pharmacy/called to Mom, Fabiola rev'd with Prasad/Pharamcist,called to mom Recommend Recheck : Other: 06/06/2016 Other: 06/10/16 Three days Other: 06/17/16 Plan completed by : KHADAR Vargas RN - 01/19/2017 10:46 CDT KHADAR BANDA RN - 01/19/2017 10:46 CDT KHADAR BANDA RN - 01/19/2017 10:46 CDT KHADAR BANDA RN - 01/19/2017 10:46 CDT Date : 06/17/2016 INFANTRY INDIRECT FIRE CREWMEMBER 06/24/2016 INFANTRY INDIRECT FIRE CREWMEMBER 07/07/2016 INFANTRY INDIRECT FIRE CREWMEMBER 07/28/2016 INFANTRY INDIRECT FIRE CREWMEMBER Location of INR sample : Other: [facility] Other: [facility] Lab Lab Type of Sample : [...] changes,pt is having tooth pulled 08/31/16 at [facility] Oral Surgery will need INR checked that am scheduled.letter faxed to [facility] oral surgery to see what INR needs leon Recommend Recheck : One week Other: 07/07/16 Three weeks Two weeks Plan completed by : KHADAR VIRK RN - 01/19/2017 10:46 CDT KHADAR BANDA RN - 01/19/2017 10:46 CDT KHADAR BANDA RN - 01/19/2017 10:46 CDT KHADAR BANDA RN - 01/19/2017 10:46 CDT Date : 08/11/2016 INFANTRY INDIRECT FIRE CREWMEMBER 08/31/2016 INFANTRY INDIRECT FIRE CREWMEMBER 09/29/2016 CDT 10/27/2016 CDT Location of INR [...] completed by : KHADAR Jackson RN - 01/19/2017 10:46 PATRICIAT KHADAR BANDA RN - 01/19/2017 10:46 PATRICIAT KHADAR BANDA RN - 01/19/2017 10:46 KHADAR HILL RN - 01/19/2017 10:46 CDT Date : 11/24/2016 CDT 12/05/2016 CDT [...] to Mom/Fabiola/states has appt on 11/01 in [place]/may need surgery on non healing arm fx/surgery [...] completed by : KHADAR Gale RN - 01/19/2017 10:46 KHADAR HILL RN - 01/19/2017 10:46 PATRICIAT KHADAR BANDA RN - 01/19/2017 10:46 CDT KHADAR BANDA RN - 01/19/2017 10:46 CDT Anticoagulation Assessment / History Visit : Phone management Plan of Care Date : 01/29/2008 CDT Primary Physician Anticoagulation : TASHA HENRIQUEZ MD 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 - 01/19/2017 9:25 AM CDT Results Notification From: WALI MCCLELLAN RN ( Anticoagulation Nurse) To: Anticoagulation Nurse; Sent: 01/19/2017 09:25:03 CDT Show up: 01/19/2017 09:26:00 CDT Subject: Results Notification Results: Date Result Name Value Ref Range 01/19/2017 08:00 PT 31.4 second(s) (8.8 - 11.9) 01/19/2017 08:00 INR 2.8 (0.9 - 1.2) [facility] Document Id: [id number] Electronically signed by Lay [facility] State Archivist [id number] at 01/25/2017 12:25 AM CDT documented in this encounter Plan of Treatment Not on filedocumented as of this encounter Procedures Procedure Name Priority Date/Time Associated Comments Diagnosis PROTHROMBIN TIME Routine 01/19/2017 8:00 AM Resul ts for this (PT), P CDT procedure are i n the results section. documented in this encounter Results (ABNORMAL) PT (Prothrombin Time) with INR (01/19/2017 8:00 AM CDT) [facility] Method Time Signature Prothrombin 31.4 (H) 8.8 - 11.9 POWERCHART Time, P [...] Time Location / / Volume Laterality Blood 01/19/2017 8:00 AM CDT Tasha Henriquez M.D. LAB BLOOD ADD-ON Performing Organization Address City/State/ZIP Code Phon e Number POWERCHART POWERCHART NA documented in this encounter Visit Diagnoses Not on filedocumented in this encounter Care Teams Allergist Relationship Specialty Start Date End Date Tasha Henriquez M.D. PCP - General 12/08/16 05/23/18 [address] [place] [phone] documented as of this encounter
--- OUTSIDE RECORDS SUMMARY | 2022-04-25 15:59 | XMS_ITS | Encounter Summary ---
:1975 Author Organization [facility] Address [address] [place] [address] Care Team Providers Name Role Phone Sridhar Garibay M.D. Primary Care Provider Encounter Details Date Type Department Care Team Description 05/05/2017 Abstract Department of Family Medicine in [facility] , [address] [phone] Social History Tobacco Use Types Packs/Day Years Used Date Smoking Tobacco: Never Sex Assigned at Date Recorded Not on file documented as of this encounter Plan of Treatment Not on filedocumented as of this encounter Visit Diagnoses Not on filedocumented in this encounter Care Teams Electronic System Engineer Relationship Specialty Start Date End Date Sridhar Garibay M.D. PCP - General 12/08/16 05/23/18 [address] [place] [phone] documented as of this encounter
--- OUTSIDE RECORDS SUMMARY | 2022-04-25 15:59 | XMS_ITS | Encounter Summary ---
:1975 Author Organization [facility] Address [address] [place] [address] Care Team Providers Name Role Phone Sridhar Garibay M.D. Primary Care Provider Encounter Details Date Type Department Care Team Description 04/20/2017 Orders Only Department of Family Sridhar Garibay embolism and thrombosis of unspecified deep veins of unspecified lower extremity (HCC); Medicine, Yovanny Helton M.D. Other Primary Thrombophilia (HCC); Clinic, in [place], [address] General Medical Examination Adult [place], [place] [address] [address] [place], [place] [phone] (Work) [phone] Social History Tobacco Use Types Packs/Day Years Used Date Smoking Tobacco: Never Sex Assigned at Date Recorded Not on file documented as of this encounter Plan of Treatment Not on filedocumented as of this encounter Results (ABNORMAL) PT (Prothrombin Time) with INR (08/29/2018 7:40 AM HIDE CLEANER) [facility] Method Time Signature Prothrombin 19.9 (H) 8.8 - 11.9 08/29/2018 [facility] Time, P sec 7:54 AM [facility] INR 1.9 0.9 - 1.2 08/29/2018 [facility] 7:54 AM [facility] Comment: Standard intensity warfarin therapeutic range: 2.0 to 3.0 High intensity warfarin therapeutic rang e: 2.5 to 3.5 Specimen Anatomical Collection Method Collection Time Receive d Time (Source) Location / / Volume Laterality Blood 08/29/2018 7:40 AM 9 7:42 HIDE CLEANER AM HIDE CLEANER Sridhar Garibay M.D. LAB BLOOD ADD-ON Performing Organization Address City/State/ZIP Code Phon e Number [facility] [id number] [place] [address] [facility] (ABNORMAL) PT (Prothrombin Time) with INR (05/11/2017 8:00 AM HIDE CLEANER) [facility] Method Time Signature Prothrombin 40.5 (H) 8.8 - 11.9 05/11/2017 [facility] Time, P sec 10:03 AM [facility] [email or web address] [facility] [employer] INR 3.5 0.9 - 1.2 05/11/2017 [facility] 10:03 AM [facility] [email or web address] [facility] [employer] [facility] Comment: Standard intensity warfarin therapeutic range: 2.0 to 3.0 High intensity warfarin therapeutic rang e: 2.5 to 3.5 Specimen Anatomical Collection Method Collection Time Receive d Time (Source) Location / / Volume Laterality Blood 05/11/2017 8:00 AM 7 9:36 HIDE CLEANER AM HIDE CLEANER Sridhar Garibay M.D. LAB BLOOD ADD-ON Performing Organization Address City/State/ZIP Code Phon e Number [facility] [address] [address] [place] [facility] documented in this encounter Visit Diagnoses Diagnosis Acute embolism and thrombosis of unspeci fied deep veins of unspecified lower extremity (HCC) Acute embolism and thrombosis of unspeci fied deep veins of unspecified lower extremity Other Primary Thrombophilia (HCC) General Medical Examination Adult documented in this encounter Care Teams Multimedia Developer Relationship Specialty Start Date End Date Sridhar Garibay M.D. PCP - General 12/08/16 05/23/18 [id number] [place] [phone] documented as of this encounter
--- OUTSIDE RECORDS SUMMARY | 2022-04-25 15:59 | XMS_ITS | Encounter Summary ---
:1975 Author Organization [facility] Address [address] [place] [address] Care Team Providers Name Role Phone Sridhar Garibay M.D. Primary Care Provider Encounter Details Date Type Department Care Team Description 03/16/2017 Hospital Encounter HX [facility] Marsha Garibay M.D. [address] [place], [place] [address] (Wo rk) Social History [...] - - Height 146 cm (4' 9.48) 03/16/2017 6:47 AM CDT Body Mass Index - - [...] on filedocumented in this encounter Care Teams Health Information Manager Relationship Specialty Start Date End Date Sridhar Garibay M.D. PCP - General 12/08/16 05/23/18 [address] [place] [phone] documented as of this encounter
--- OUTSIDE RECORDS SUMMARY | 2022-04-25 15:59 | XMS_ITS | Encounter Summary ---
:1975 Author Organization [facility] Address [address] [place] [id number] Care Team Providers Name Role Phone Unavailable Primary Care Provider Unavailable Encounter Details Date Type Department Care Team Description 11/09/2016 Hospital Encounter HX [facility] Marsha Henriquez M.D. [address] [place], [place] [address] (Wo rk) Social History Tobacco Use Types Packs/Day Years Used Date Smoking Tobacco: Never Sex Assigned at Date Recorded Not on file documented as of this encounter Last Filed Vital Signs Vital Sign Reading Time Taken Comments Blood Pressure 92/54 11/09/2016 4:39 PM CDT Pulse 64 11/09/2016 3:37 PM CDT Temperature - - Respiratory Rate - - Oxygen Saturation - - Inhaled Oxygen Concentration - - Weight 71 kg (156 lb 8.4 oz) 11/09/2016 3:37 PM CDT Height 146 cm (4' 9.48) 11/09/2016 4:39 PM CDT Body Mass Index 33.31 11/09/2016 3:37 PM CDT documented in this encounter Medications at Time [...] 30 tab(s) documented as of this encounter Progress Notes Tasha Henriquez M.D. - 11/09/2016 3:22 PM CDT [id number] Patient is here with her mother requesting stockings that fit better for compression. Hers were too tight and did not fit right and said she had a long plane ride recently and she had a little bit morevaricose veins I think more from the sitting than tightness. In any case, they want the stockings leon the right length and width and fit properly. She has Down's syndrome but is able to get them on. PHYSICAL EXAMINATION GENERAL: Patient alert and oriented, pleasant and cooperative with exam. No acute distress. VITALS: See nursing note. HEAD: Atraumatic, normocephalic. EYES: Unremarkable. Discs are sharp bilaterally. EARS: Tympanic membranes appear normal bilaterally. NOSE: Nares clear. OROPHARYNX: Clear. NECK: Supple without lymphadenopathy or thyromegaly. LUNGS: Clear to auscultation bilaterally. HEART: Regular rate and rhythm, normal S1, S2 without murmurs, rubs or gallops. ABDOMEN: Soft, nontender, non-distended, no hepatosplenomegaly or other masses appreciated. There are positive bowel sounds. EXTREMITIES: Lower extremity with 1+ pretibial edema. No calf tenderness. Negative Homans. NEUROLOGIC: Cranial nerves II through XII are grossly intact. Sensation and motor strength grossly intact throughout. Reflexes are 2+ and symmetric. IMPRESSION/REPORT/PLAN Venous stasis edema. PLAN: I have her a prescription for new stockings. We went over the options. She could just take it to the pharmacy but would be better to go to [facility] where I believe [facility] has special expertise as well but they are fit at [facility] to my understanding. We also discussed occupational therapy would probably be the best option. They are very busy with some stress lately and that she had a fracture and is going to [place] and her father has prostate cancer but it sounds likehe is doing well. They also asked today about blood pressure runs a little low. She has no symptoms and using the compression stockings could help. Watch for any lightheadedness, chest pain, etc. Health maintenance: Looks like she saw somebody else in June 2016 for her annual. She has been working hard on diet and exercise and I congratulated her for that. The family appreciates me emphasizing things like this to her as she does not always listen to family members. Chart is reviewed back toher last physical 02/08/2016. Follow up then as needed. Tasha Henriquez M.D./erin Electronically Signed By: TASHA HENRIQUEZ MD On: 11/14/2016 07:36 AM Source: [facility] MHSDOLBEYNONRADSYS Document Id: [id number] documented in this encounter Miscellaneous Notes Miscellaneous - Meli Campo R.N. - 01/17/2017 4:50 PM CDT Med Management Document Contains Addenda Addendum by TASHA HENRIQUEZ MD on January 18, 2017 07:21:38 CDT From: TASHA HENRIQUEZ MD Sent: 01/18/2017 07:21:38 CDT Subject: RE:Med Management Approved Order:warfarin (warfarin 5 mg oral tablet) See Instructions 5mg Sun/Tues/Thurs and 2.5mg all other days or as directed by INR Clinic. Qty: 60 tab(s) Refills: 1 Substitutions Allowed [facility] [id number] Signed by TASHA HENRIQUEZ MD 01/18/2017 07:21:35 From: MELI CAMPO RN ( Anticoagulation Nurse) To: TASHA HENRIQUEZ MD; Sent: 01/17/2017 16:50:18 CDT Subject: Med Management On hold pending signature Order:warfarin (warfarin 5 mg oral tablet) See Instructions 5mg Sun/Tues/Thurs and 2.5mg all other days or as directed by INR Clinic. Qty: 60 tab(s) Refills: 1 Substitutions Allowed [facility] - [facility] [id number] Caller is: ( ) Patient ( ) Mother ( ) Father ( ) Spouse ( ) Daughter ( ) Son ( x ) Pharmacy ( ) Other: Provider:[place] [facility] Name of Medications Needing Refill:Warfarin 5mg tabs Last Refill Date: Additional Information: INR 3.0 12/22/16,This dose of Warfarin is not on medication list will forward to provider to fill. Patient has 2mg and 2.5mg tabs on med list. Current Warfarin dose is 5mg Sun/Tues/Thurs and 2.5mg all other days. 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 Some may be past due or may be coming due in the next three months. If youhave already scheduled any or all of these services, thank you. We recognize that this may or may not include all of your individualized health care needs; however, we are happy to help you with any and all primary care concerns you may have. Past Due Pap Smear Test for Cervical Cancer Screening It may be possible to bundle some of the above services together to make your visit with us more convenient. Please call [phone] to schedule services that are past due or that may shortly become due (thank you if you have already done so). We will follow up in three to six months should you have more services to schedule at that time. If you have already received any of the listed past due or upcoming services outside of [facility], please call [phone] to add them to your medical record. You may want to consider contacting your health insurance company to make sure these services are covered and find out if there will be any [id number] expense. If you have any questions about the services listed above, or if you are no longer receiving care from [facility], please contact us at [phone]. Thank you for partnering to provide you with the best care possible. Thank you for choosing us, Tasha Henriquez M.D. and the [facility], for your health care needs! Sincerely, OLIVIA ISRAEL Electronic Signature Electronically Signed By: OLIVIA ISRAEL On: December 12, 2016 This document has images extracted. Source: [facility] POWERCHART Document Id: [id number] Electronically signed by Lay [facility] Gas Usage Meter Clerk [id number] at 12/28/2016 11:14 AM CDT Miscellaneous - Tasha Henriquez M.D. - 11/09/2016 5:34 PM CDT Ambulatory Patient Summary [facility] [address] [place] [address] [address] [place], [place] [phone] Visit Information Name: DORITA SHEFFIELD [facility] Number: [id number] Current Date: 11/09/2016 17:34:29 Physicians Attending Provider: TASHA HENRIQUEZ MD Primary Care Provider: TASHA HENRIQUEZ MD DORITA SHEFFIELD has been given the following list of follow-up instructions, medication list, and patient education materials: Follow-up Instructions Your Medications Here is a list of your medications. It is important to take your medications as directed. Use a pillbox or chart to help remind you to take your medications. Please let your doctor or nurse know if you have problems taking your medications. Medication/Strength How to Take Indications/Special Instructions/Comments/Notes for Patient Medication Changes/Routing acetaminophen (acetaminophen 500 mg oral tablet) 2 Tablet(s), Oral, every 6 hours as needed for Pain/ Fever chlorhexidine topical (chlorhexidine 0.12% mucous membrane liquid) 15 Milliliter, Oral, once a day (at bedtime) fluoride topical (Prevident 5000 Plus topical paste) 1 luther, Topical, two times a day multivitamin (multivitamin) 1 tab, Oral, once a day warfarin (Coumadin 2 mg oral tablet) See Instructions This dosage is currently not required. warfarin (warfarin 2.5 mg oral tablet) See Instructions 5mg SunJose F & Thurs, 2.5mg all other days or as directed per INR Clinic as of 09/29/2016 Stop Taking the Following Medications: Medication list as of 11-09-16 17:34 Attention: If you have any medications at home that are not on this list, DO NOT take them until youcontact your provider for clarification. Give a copy of your medication list to your primary care provider. Update your medication list any time medications or doses are changed and carry your medication list at all times in case of emergency. 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 Anna Riley rec: lifelong coumadin Impaired Fasting Glucose Active 07/22/2010 09/21/13 Impaired fasting glucose Mixed Hyperlipidemia Active 07/22/2010 09/21/13 Mixed hyperlipidemia Recommend lifestyle changes (diet, exercise, weight loss) Irregular Menstrual Cycle Active 07/28/2010 09/21/13 Irregular menses Gallstone Without Obstruction Active Trisomy 21 Active Your Upcoming Appointments Date Time Location Provider 11/24/2016 08:15 [facility] Offsite Attention: Contact your local Clinic if further appointment detail needed. Consider Using Patient Online Services Patient Online Services is a secure online and Mobile application that lets you: ?? View lab and test results ?? View portions of your medical record including clinical notes, immunizations and discharge summaries ?? Request an appointment or medication refill ?? Review your appointment schedule ?? Send secure messages to your care team Its easy to create an account if you dont have one. Go to [email or web address] and click on Create Your Account. Then, follow the directions to complete the online form. Youll be asked for your [facility] number which you can find at the top of this document. Your Goals/Additional instructions: Source: [facility] POWERCHART Document Id: [id number] Miscellaneous - Tasha Henriquez M.D. - 11/09/2016 5:34 PM CDT Ambulatory Discharge Medication List [facility] [address] [facility] [address] [place], [place] [phone] Visit Information Name: DORITA SHEFFIELD [facility] Number: [id number] Current Date: 11/09/2016 17:34:29 Attending Provider: TASHA HENRIQUEZ MD Primary Care Provider: TASHA HENRIQUEZ MD DORITA SHEFFIELD has been given the following list of medications: Your Medications It is important to take your medications as directed. Use a pill box or chart to help remind you to take your medications. Please let your doctor or nurse know if you have problems taking your medications. Medication/Strength How to Take Indications/Special Instructions/Comments/Notes for Patient Medication Changes/Routing acetaminophen (acetaminophen 500 mg oral tablet) 2 Tablet(s), Oral, every 6 hours as needed for Pain/ Fever chlorhexidine topical (chlorhexidine 0.12% mucous membrane liquid) 15 Milliliter, Oral, once a day (at bedtime) fluoride topical (Prevident 5000 Plus topical paste) 1 luther, Topical, two times a day multivitamin (multivitamin) 1 tab, Oral, once a day warfarin (Coumadin 2 mg oral tablet) See Instructions This dosage is currently not required. warfarin (warfarin 2.5 mg oral tablet) See Instructions 5mg Sun, Tues & Thurs, 2.5mg all other days or as directed per INR Clinic as of 09/29/2016 Stop Taking the Following Medications: Medication list as of 11-09-16 17:34 Attention: If you have any medications at home that are not on this list, DO NOT take them until youcontact your provider for clarification. Give a copy of your medication list to your primary care provider. Update your medication list any time medications or doses are changed and carry your medication list at all times in case of emergency. Electronically Signed By: TASHA HENRIQUEZ MD Signed On:09-NOV-2016 17:34:26 Additional Information: [facility] Document Id: [id number] Miscellaneous - Shruti Guillaume, L.P.N. - 11/09/2016 4:39 PM CDT Ambulatory Vitals Height Weight Ambulatory Vitals Height Weight Entered On: 11/09/2016 16:39 CDT Performed On: 11/09/2016 16:39 CDT by SHRUTI GUILLAUME LPN Vitals/Ht/Wt Limb Alert Question : No Systolic Blood Pressure : 92 mmHg Diastolic Blood Pressure : 54 mmHg NIBP Mean : 67 mmHg Height : 146 cm(Converted to: 4 ft 9 inch(es), 57 inch(es)) SHRUTI GUILLAUME LPN - 11/09/2016 16:39 CDT Source: [facility] [employer] Document Id: [id number] CDT!7 Miscellaneous - Shruti Guillaume L.P.N. - 11/09/2016 3:37 PM CDT Adult Mortgage Lender Intake/History Adult Mortgage Lender Intake/History Entered On: 11/09/2016 15:37 CDT Performed On: 11/09/2016 15:37 CDT by SHRUTI GUILLAUME [employer] Intake Chief Complaint : needs compression stockings Ambulatory Intake Additional Information : repeat BP 92/54 SHRUTI GUILLAUME LPN - 11/09/2016 16:40 CDT Peripheral Pulse Rate : 64 /min Systolic Blood Pressure : 82 mmHg (<LLOW) Diastolic Blood Pressure : 52 mmHg NIBP Mean : 62 mmHg SHRUTI GUILLAUME LPN - 11/09/2016 15:38 CDT Temperature Core : 36.6 DegC(Converted to: 97.9 DegF) Limb Alert Question : No Height : 146 cm(Converted to: 4 ft 9 inch(es), 57 inch(es)) Actual Weight : 71 kg(Converted to: 156 lb 8 oz) Dosing Weight Clinic : 71 kg Clinic BSA : 1.7 Body Mass Index : 33.31 kg/m2 SHRUTI GUILLAUME LPN - 11/09/2016 15:37 CDT General Info Information Given By : Patient, Mother Languages : [place] Is Patient Female and 13-50 no hysterectomy : Yes Status : Patient denies Are you ? : No SHRUTI GUILLAUME LPN - 11/09/2016 15:37 CDT Subjective Pain Symptoms : No SHRUTI GUILLAUME LPN - 11/09/2016 15:37 CDT Dependent Habits Exposure to Tobacco Smoke : Other: never smoker Smoking Status : Never smoker Tobacco 2A : No Tobacco Use/Currently Using : No Tobacco Use/Last 30 Days : No Tobacco Use/Last 12 months : No SHRUTI GUILLAUME LPN - 11/09/2016 15:37 CDT Caffeine Use Grid Caffeine Use : Current Type : Soft drinks Frequency : Occasionally Amount : pop SHRUTI GUILLAUME LPN - 11/09/2016 15:37 CDT Recreational Drug Use Grid Drug Use : None SHRUTI GUILLAUME LPN - 11/09/2016 15:37 CDT Source: [employer] Document Id: [id number] CDT!4 documented in this encounter Plan of Treatment Not on filedocumented as of this encounter Visit Diagnoses Not on filedocumented in this encounter
--- OUTSIDE RECORDS SUMMARY | 2022-04-25 15:59 | XMS_ITS | Encounter Summary ---
:1975 Author Organization [facility] Address [address] [place] [id number] Care Team Providers Name Role Phone Tasha Henriquez M.D. Primary Care Provider Encounter Details Date Type Department Care Team Description 04/20/2017 Hospital Encounter HX [facility] Marsha Henriquez M.D. [address] [place], [place] [address] (Wo rk) Social History [...] - - Height 146 cm (4' 9.48) 04/20/2017 7:23 AM CDT Body Mass Index - - [...] of this encounter Miscellaneous Notes Miscellaneous - Jeff Loco RMichaelNMichael - 04/20/2017 10:17 AM CDT Anticoagulation Patient Intake Anticoagulation Patient Intake Entered On: 04/20/2017 10:18 CDT Performed On: 04/20/2017 10:17 CDT by JEFF LOCO RN Plan INR goal range : 2.0 - 3.0 Duration of Therapy : Lifelong Tablet Size : 2 mg, 5 mg JEFF LOCO RN - 04/20/2017 10:17 CDT Anticoagulation Management Plan Grid Date : [...] weeks Two weeks Plan completed by : JEFF Cheng RN - 04/20/2017 10:17 CDT JEFF LOCO RN - 04/20/2017 10:17 CDJEFF GOMEZ RN - 04/20/2017 10:17 JEFF MCGILL RN - 04/20/2017 10:17 CDT Date : 12/26/2013 CDT 01/30/2014 CDT [...] a long time, no bleeding now left ms for Fabiola,call if changes Recommend Recheck : Other: 5 weeks Other: 5 weeks Other: 03/10/2014 Other: 03/20/14 Plan completed by : JEFF Tolliver RN - 04/20/2017 10:17 JEFF MCGILL RN - 04/20/2017 10:17 JEFF MCGILL RN - 04/20/2017 10:17 JEFF MCGILL RN - 04/20/2017 10:17 CDT Date : 03/20/2014 CDT 03/27/2014 CDT [...] completed by : darya lackey LM /pharmacy JEFF LOCO RN - 04/20/2017 10:17 CDT JEFF LOCO RN - 04/20/2017 10:17 CDT JEFF LOCO RN - 04/20/2017 10:17 CDT JEFF LOCO RN - 04/20/2017 10:17 CDT Date : 04/17/2014 CDT 04/24/2014 CDT 05/01/2014 MIXED ANIMAL VETERINARIAN 05/15/2014 MIXED ANIMAL VETERINARIAN Location of INR sample : Lab Lab [...] will trynoted dose called to mom Fabiola [phone] called to Fabiola/no changes Called to mother/Fabiola, not awareof any changes Recommend Recheck : One week One week Two weeks Two weeks Plan completed by : JEFF DENNIS RN - 04/20/2017 10:17 CDJEFF GOMEZ RN - 04/20/2017 10:17 JEFF MCGILL RN - 04/20/2017 10:17 CDJEFF GOMEZ RN - 04/20/2017 10:17 CDT Date : 06/03/2014 MIXED ANIMAL VETERINARIAN 06/05/2014 MIXED ANIMAL VETERINARIAN 06/10/2014 MIXED ANIMAL VETERINARIAN 06/11/2014 MIXED ANIMAL VETERINARIAN Location of INR sample : Lab Type [...] Called motherFabiola. Hue will be staying in [place] 2wks post-surgery & have INR drawn there. [...] lovenox tomorrow AM as ordered. INR in [place] for next several weeks as pt will be recovering there. Recommend Recheck : Other: depending on Dr. Henriquez's preop. Other: 06/18 Other: 06/13/14 Plan completed by : JEFF BLANK RN - 04/20/2017 10:17 CDT JEFF LOCO RN - 04/20/2017 10:17 PATRICIAT JEFF LOCO RN - 04/20/2017 10:17 JEFF MCGILL RN - 04/20/2017 10:17 CDT Date : 06/14/2014 MIXED ANIMAL VETERINARIAN 06/14/2014 MIXED ANIMAL VETERINARIAN 06/16/2014 MIXED ANIMAL VETERINARIAN 06/23/2014 MIXED ANIMAL VETERINARIAN Location of INR sample : Clinic Lab [...] : 20 20 Comment : [facility] called with INR result from 06/13, reported they left a message with Dr. Henriquez and hadn't heard back, spoke with mother, Fabiola, and gave doses, continue Lovenox and repeat INR 06/16, message left with INR clinic in to contact CF Please contact [place] lab on 06/16 for result and may call Fabiola at [phone] with instructions call to Fabiola/will stop Lovenox injections and take noted dose/pt has an appt here in [place] 06/23 so will do lab appt here that day Called to Fabiola/ Hue will be back at [facility] by next draw. will have done on . no changes to meds/diet. Recommend Recheck : Two days One week Two weeks Plan completed by : latasha OZZY JEFF SINCLAIR RN - 04/20/2017 10:17 CDT JEFF LOCO RN - 04/20/2017 10:17 CDT JEFF LOCO RN - 04/20/2017 10:17 CDT JEFF LOCO RN - 04/20/2017 10:17 CDT Date : 07/10/2014 MIXED ANIMAL VETERINARIAN 07/17/2014 MIXED ANIMAL VETERINARIAN 07/31/2014 MIXED ANIMAL VETERINARIAN 09/11/2014 CDT Location of INR sample : [...] weeks Two weeks Plan completed by : JEFF Sher RN - 04/20/2017 10:17 JEFF MCGILL RN - 04/20/2017 10:17 JEFF MCGILL RN - 04/20/2017 10:17 JEFF MCGILL RN - 04/20/2017 10:17 CDT Date : 09/12/2014 CDT 09/25/2014 CDT [...] week Two weeks Plan completed by : JEFF Geller RN - 04/20/2017 10:17 PATRICIAT JEFF LOCO RN - 04/20/2017 10:17 JEFF MCGILL RN - 04/20/2017 10:17 JEFF MCGILL RN - 04/20/2017 10:17 CDT Date : 10/23/2014 CDT 11/13/2014 CDT [...] Quintin/Pharmacy and called Mom with orders Per Mom Meredith, no changes, has been drinking some Kiwi Juice, no bleeding/consult with Quintin/Pharmacy Called to mom /Fabiola, no changes, rev'd w/BCarlson/Pharmacy Recommend Recheck : Three weeks One week One week One week Plan completed by : JEFF Mera RN - 04/20/2017 10:17 CDT JEFF LOCO RN - 04/20/2017 10:17 CDT JEFF LOCO RN - 04/20/2017 10:17 CDT JEFF LOCO RN - 04/20/2017 10:17 CDT Date : 12/04/2014 CDT 12/18/2014 CDT [...] 2.5mg all other days 5mg Mon & Thurs,2.5mg all other days Total Weekly Warfarin Dose [...] week Two weeks Plan completed by : JEFF Armenta RN - 04/20/2017 10:17 CDT JEFF LOCO RN - 04/20/2017 10:17 PATRICIAT JEFF LOCO RN - 04/20/2017 10:17 CDT JEFF LOCO RN - 04/20/2017 10:17 CDT Date : 02/05/2015 CDT 02/26/2015 CDT [...] weeks Three weeks Plan completed by : JEFF BELLE RN - 04/20/2017 10:17 CDJEFF GOMEZ RN - 04/20/2017 10:17 CDJEFF GOMZE RN - 04/20/2017 10:17 JEFF MCGILL RN - 04/20/2017 10:17 CDT Date : 04/09/2015 CDT 05/07/2015 MIXED ANIMAL VETERINARIAN 06/04/2015 MIXED ANIMAL VETERINARIAN 07/02/2015 MIXED ANIMAL VETERINARIAN Location of INR sample : Lab Lab [...] Other: 5 weeks Plan completed by : JEFF Doss RN - 04/20/2017 10:17 JEFF MCGILL RN - 04/20/2017 10:17 JEFF MCGILL RN - 04/20/2017 10:17 CDJEFF GOMEZ RN - 04/20/2017 10:17 CDT Date : 08/06/2015 MIXED ANIMAL VETERINARIAN 09/17/2015 CDT 10/29/2015 CDT 11/12/2015 CDT Location [...] weeks One week Plan completed by : JEFF Davis RN - 04/20/2017 10:17 CDJEFF GOMEZ RN - 04/20/2017 10:17 JEFF MCGILL RN - 04/20/2017 10:17 JEFF MCGILL RN - 04/20/2017 10:17 CDT Date : 11/19/2015 CDT 12/03/2015 CDT [...] month One month Plan completed by : JEFF Ocasio RN - 04/20/2017 10:17 JEFF MCGILL RN - 04/20/2017 10:17 Jennifer SHARON JEFF Valentina RN - 04/20/2017 10:17 [facility][NOTE 3] SHARON JEFF Valentina MARCUS - 04/20/2017 10:17 CDT Date : 02/19/2016 CDT 02/20/2016 CDT 02/21/2016 CDT 02/22/2016 CDT Location of INR sample : [facility] Type of Sample : Venous [...] Brizuela, PharmMichaelDMichael ASTUDILLO, PharmD Eliseo Quezada PharmD. SHARON JEFF Valentina RN - 04/20/2017 10:17 CDT SHARON JEFF Valentina RN - 04/20/2017 10:17 T SHARON JEFF Valentina RN - 04/20/2017 10:17 [facility][NOTE 3] SHARON JEFF Valentina RN - 04/20/2017 10:17 CDT Date : 02/23/2016 CDT 02/24/2016 CDT 02/25/2016 CDT 02/26/2016 CDT Location of INR sample : [facility] Type of Sample : Venous [...] Eliseo Quezada, Alida. Eliseo Quezada, PharmRohit Brizuela, Pharm.DRea MachadoD. JEFF LOCO RN - 04/20/2017 10:17 CDT JEFF LOCO RN - 04/20/2017 10:17 CDT JEFF LOCO RN - 04/20/2017 10:17 CDT JEFF LOCO RN - 04/20/2017 10:17 CDT Date : 02/27/2016 CDT 03/01/2016 CDT 03/04/2016 CDT 03/07/2016 CDT Location of INR sample [facility] Type of Sample : Venous Capillary/POC Venous Capillary/POC INR Result : 2.07 2.5 2.2 2.4 Warfarin Dose : 2 mg daily 2mg daily 2.5mg 03/04-03/06 2.5mg Mon,Mon,Mon Total Weekly Warfarin Dose : 14 15.5 Comment : Pt being discharged on Bactrim. 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 Pt mother states plan to return to [facility] on 03/06. next f/u will be in [facility]. 2mg TuWTh Rev'd with Jelly/Pharmacist,called to mom/Fabiola pt done with Bactrizuri Henriquez today pt is going back to with mom for another 1-2wks,she would like INR checked in but INR Clinic to follow will send msg to INR Clinic Stay on 2.5mg daily Recommend Recheck : Three days Three days, Other: in [place] Other: 03/07/16 Other: 4 days Plan completed by : JEFF Zamora RN, RN RN - 04/20/2017 10:17 CDT JEFF LOCO RN - 04/20/2017 10:17 CDT JEFF LOCO RN - 04/20/2017 10:17 CDT JEFF LOCO RN - 04/20/2017 10:17 CDT Date : 03/11/2016 CDT 03/16/2016 CDT [...] pt will be staying with sister in [facility] next week she will have INR drawn in [place] again called to Fabiola/pt to do next INR at [facility] on ./no changes called to Fabiola/no changes called to Fabiola/Mom,no changes/missed doses Recommend Recheck : Other: 03/16/16 Other: 03/31/16(2 weeks) One month Two weeks Plan completed by : JENIFER PRECIADO ly NB JEFF LOCO RN - 04/20/2017 10:17 CDJEFF GOMEZ RN - 04/20/2017 10:17 CDT JEFF LOCO RN - 04/20/2017 10:17 CDT JEFF LOCO RN - 04/20/2017 10:17 CDT Date : 05/11/2016 MIXED ANIMAL VETERINARIAN 05/12/2016 MIXED ANIMAL VETERINARIAN 05/17/2016 MIXED ANIMAL VETERINARIAN 05/24/2016 MIXED ANIMAL VETERINARIAN Location of INR sample : Other: Drawn in [place] Other: [place] Other: [place] Type of Sample : INR Result : 1.6 2.4 1.8 Warfarin Dose : 2.5mg daily 2.5mg daily 5mg 05/24 then 2.5mg daily Total Weekly Warfarin Dose : 17.5 Comment : Per Mom/Fabiola, pt disch from [facility] today, fell & fx left humerus 05/08, [...] no other changes Recommend Recheck : Other: 11/17/16 Other: 05/17/16 One week One week Plan completed by : JEFF ZIMMERMAN RN - 04/20/2017 10:17 JEFF MCGILL RN - 04/20/2017 10:17 JEFF MCGILL RN - 04/20/2017 10:17 JEFF MCGILL RN - 04/20/2017 10:17 CDT Date : 06/01/2016 MIXED ANIMAL VETERINARIAN 06/06/2016 MIXED ANIMAL VETERINARIAN 06/10/2016 MIXED ANIMAL VETERINARIAN 06/13/2016 MIXED ANIMAL VETERINARIAN Location of INR sample : Other: [place] Other: [facility] Other: [facility] Type [...] days Other: 06/17/16 Plan completed by : JEFF Orlando RN - 04/20/2017 10:17 JEFF MCGILL RN - 04/20/2017 10:17 JEFF MCGILL RN - 04/20/2017 10:17 JEFF MCGILL RN - 04/20/2017 10:17 CDT Date : 06/17/2016 MIXED ANIMAL VETERINARIAN 06/24/2016 MIXED ANIMAL VETERINARIAN 07/07/2016 MIXED ANIMAL VETERINARIAN 07/28/2016 MIXED ANIMAL VETERINARIAN Location of INR sample : Other: [facility] [...] changes,pt is having tooth pulled 08/31/[address] [facility] Oral Surgery will need INR checked that am scheduled.letter faxed to [facility] oral surgery to see what INR needs leon Recommend Recheck : One week Other: 07/07/16 Three weeks Two weeks Plan completed by : JEFF GALE RN - 04/20/2017 10:17 CDT JEFF LOCO RN - 04/20/2017 10:17 CDT JEFF LOCO RN - 04/20/2017 10:17 CDT JEFF LOCO RN - 04/20/2017 10:17 CDT Date : 08/11/2016 MIXED ANIMAL VETERINARIAN 08/31/2016 MIXED ANIMAL VETERINARIAN 09/29/2016 CDT 10/27/2016 CDT Location of INR [...] month One month Plan completed by : JEFF Mott RN - 04/20/2017 10:17 JEFF MCGILL RN - 04/20/2017 10:17 CDJEFF GOMEZ RN - 04/20/2017 10:17 JEFF MCGILL RN - 04/20/2017 10:17 CDT Date : 11/24/2016 CDT 12/05/2016 CDT [...] to Mom/Fabiola/states has appt on 11/01 in [place]/may need surgery on non healing arm fx/surgery tentatively scheduled for 12/21/ to check [facility] for pre-op instructions and schedule next INR Per Mom/Fabiola, arm is healing, no surg at this time, may have in Feb, she will let us know Called to Mom/Fabiola, no changes Called to Mom/Fabiola/no changes Recommend Recheck : Other: 12/22/16 One month One month Plan completed by : JEFF Hoskins RN - 04/20/2017 10:17 JEFF MCGILL RN - 04/20/2017 10:17 PATRICIAT JEFF LOCO RN - 04/20/2017 10:17 PATRICIAT JEFF LOCO RN - 04/20/2017 10:17 CDT Date : 02/16/2017 CDT 03/16/2017 CDT [...] week Two weeks Plan completed by : JEFF Ruvalcaba RN - 04/20/2017 10:17 CDT JEFF LOCO RN - 04/20/2017 10:17 CDT JEFF LOCO RN - 04/20/2017 10:17 CDT JEFF LOCO RN - 04/20/2017 10:17 CDT Date : 04/13/2017 CDT 04/20/2017 CDT Location of INR sample : Lab Lab Type of Sample : Venous Venous INR Result : 4.5 2.8 Warfarin Dose : HOLD 04/13, 04/14, then resume 5mg Sun/Tues, 2.5mg all other days 5mg Sun/Tues, 2.5mg all other days Total Weekly Warfarin Dose : 22.5 22.5 Comment : called to Mom/Fabiola, no changes except still takes some Tylenol for knee pain called to Mom/Fabiola. 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 - 04/20/2017 9:45 AM CDT Results Notification Document Contains Addenda Addendum by JEFF LOCO RN on April 20, 2017 10:20:19 CDT Pts mom notified and dosed. From: JEFF LOCO RN ( Anticoagulation Nurse) To: Anticoagulation Nurse; Sent: 04/20/2017 09:45:01 CDT Show up: 04/20/2017 09:45:00 CDT Subject: Results Notification Results: Date Result Name Value Ref Range 04/20/2017 08:00 PT 31.6 second(s) (8.8 - 11.9) 04/20/2017 08:00 INR 2.8 (0.9 - 1.2) [facility] Document Id: [id number] documented in this encounter Plan of Treatment Not on filedocumented as of this encounter Procedures Procedure Name Priority Date/Time Associated Comments Diagnosis PROTHROMBIN TIME Routine 04/20/2017 8:00 AM Resul ts for this (PT), P CDT procedure are i n the results section. documented in this encounter Results (ABNORMAL) PT (Prothrombin Time) with INR (04/20/2017 8:00 AM CDT) Patholo gist Method Time Signature Prothrombin 31.6 (H) 8.8 - 11.9 POWERCHART Time, P [...] Time Location / / Volume Laterality Blood 04/20/2017 8:00 AM CDT Tasha Henriquez M.D. LAB BLOOD ADD-ON Performing Organization Address City/State/ZIP Code Phon e Number POWERCHART POWERCHART NA documented in this encounter Visit Diagnoses Not on filedocumented in this encounter Care Teams Senior Sous Chef Relationship Specialty Start Date End Date Tasha Henriquez M.D. PCP - General 12/08/16 05/23/18 [place] [phone] documented as of this encounter
--- OUTSIDE RECORDS SUMMARY | 2022-04-25 15:59 | XMS_ITS | Encounter Summary ---
:1975 Author Organization [facility] Address [address] [place] [id number] Care Team Providers Name Role Phone Unavailable Primary Care Provider Unavailable Encounter Details Date Type Department Care Team Description 07/01/2016 - Hospital Encounter HX [facility] Owen, 09/07/2016 Gabby Social History Tobacco Use Types Packs/Day Years Used Date Smoking Tobacco: Never Sex Assigned at Date Recorded Not on file documented as of this encounter Discharge Summaries Todd Piper, P.T. - 08/11/2016 5:29 PM CST DC Document Contains Addenda Addendum by TODD PIPER PT on August 11, 2016 17:30 GAS SUBSTATION OPERATOR CLAIMS BASED OUTCOME REPORTING FUNCTIONAL LIMITATION: Carry Based on clinical judgement DC STATUS: CJ GOAL STATUS: CJ Modified by and Electronically Signed by: TODD PIPER PT On: 08/11/2016 05:30 PM Discharge Summary for Outpatient PT Dates of Service: 07/01/16-08/11/16 Number of Visits: 8 Physical/functional status at last visit / patient contact: Objective report of the patient's subjective statements: Patient reports a current pain / symptom level of NA/10 compared to NA/10 at the start of care. Patient reports a NA% improvement in symptoms since start of care. SKILLED INTERVENTIONS AND GOAL STATUS PLAN OF CARE Skilled physical therapy interventions and plan to achieve goals and expected outcomes: Patient education to inform, educate, and/or train patients, families, significant others, and caregivers to promote and optimize physical therapy services. Coordinate, communicate, and document to ensure the patient receives appropriate, comprehensive, andefficient quality care. PROCEDURAL INTERVENTIONS: Therapeutic Exercise to develop: strength and endurance, range of motion, flexibility, joint mobility, joint stability. Manual Therapy to: improve joint mobility, improve soft tissue mobility, decrease pain, improve neural mobility, decrease edema / lymphedema. Neuromuscular Reeducation to improve: balance, proprioception, posture, coordination, kinesthetic sense, movement Education in Self-Care / Home Management to include instruction in: joint protection principles, symptom control techniques, edema control techniques. Therapeutic Activities to: improve functional performance in daily activities, work activities, sports / recreational activities. Modalities to: alleviate pain and/or edema, increase tissue flexibility, stimulate muscle function, enhance healing, increase circulation. Aquatic Therapy to develop: strength and endurance, range of motion, flexibility, joint mobility, joint stability. Community Work Reintegration ANTICIPATED GOALS AND EXPECTED OUTCOMES FUNCTIONAL GOALS Patient to demonstrate ability to lift (10# without limitation) in 6 week(s). met Patient will be able to perform grooming / dressing (without limitation or pain) in 6 week(s). met Patient will be able to reach overhead (without limitation or pain) in 6 week(s). met Patient will be able to perform homemaking / yard work activities (without limitation or pain) in 6 week(s). met Patient will be able to perform all required job duties (without limitation or pain) in 6 week(s). met, with lifting restriction Patient will be independent and safe with home exercise / self-care program in 6 week(s). met CRITERIA FOR DISCHARGE Patient has met established goals and expected outcomes as stated in the plan of care and based on reassessed needs, or demonstrated necessary knowledge and ability to carry out a self-care / home management program independently and no further skilled intervention is needed. DISCHARGE PLAN Home exercise and self-care program as previously documented in daily notes/evaluation. Electronically Signed By: TODD PIPER PT On: 08/11/2016 05:30 PM Source: [facility] POWERCHART Document Id: [id number] SUBSTATION OPERATOR documented in this encounter Medications at Time [...] documented as of this encounter Progress Notes Todd Piper, PMichaelT. - 08/11/2016 5:26 PM CST elbow PT THERAPY DAILY VISIT NOTE REHAB SNAPSHOT ORDERS: EVALUATE AND TREAT FOR: distal humerus ORIF, left elbow CONTRAINDICATIONS OR SPECIAL INSTRUCTIONS: please work on elbow ROM, no lifting more than 5 pouds Visit #:8/PRN Insurance: Medicare POC Date Range: 07/01/2016 - 08/12/2016 Onset Date: DOS: 05/09/2016, DOI: 05/08/2016 Provider: Roberto Carreon MD/Dr. Ortiz Provider follow up: 08/05/2016 PHYSICAL THERAPY DIAGNOSIS: Left elbow pain, weakness and decreased range of motion s/p distal humerus fracture with open reduction internal rotation This patient would benefit from skilled physical therapy to address the following impairments: pain,impaired joint mobility, weakness. 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 Ortho f/u went well. During visit, with patient present, I contacted patient's mother, Fabiola by phone, and discussed that we can discontinue PT as her motion has been improving between sessions for several sessions. All were in agreement with this. With patient and her mother'spermission, I spoke with Joseline's sports athletic trainer at the [facility] to monitor and communicate any loss of motion or change in pain in the coming weeks. OBJECTIVE: Current / pertinent objective findings or assessment results at todays visit: RANGE OF MOTION: Passive: Elbow: Extension lacking 7?? Flexion: 125?? TREATMENT TODAY CONSISTED OF: Therapeutic Exercise: 14 minutes Supine PROM with gentle end range holds primary into elbow extension, then flexion. Also included was some wrist supination stretching and instructed her in how to do this at home Current Home Program: Seated elbow flexion nose touches elbow extension in supine wrist supination AROM Wall walks to maintain shoulder and chest ROM x 10 reps ASSESSMENT: POST TREATMENT RESPONSE: Displays good understanding of HEP, able to complete the above exercise with written, verbal and demonstration instruction. No immediate change in symptoms. Brief progress summary: Showing good ROM. PLAN: DC from PT Total Visit Time: 16 minutes Rehabilitation Coordinator Present NA Electronically Signed By: TODD PIPER PT On: 08/11/2016 05:28 PM Source: [employer] Document Id: [id number] SUBSTATION OPERATOR Todd Piper P.T. - 07/28/2016 5:06 PM CST elbow PT THERAPY DAILY VISIT NOTE REHAB SNAPSHOT ORDERS: EVALUATE AND TREAT FOR: distal humerus ORIF, left elbow CONTRAINDICATIONS OR SPECIAL INSTRUCTIONS: please work on elbow ROM, no lifting more than 5 pouds Visit #:7/PRN Insurance: Medicare POC Date Range: 07/01/2016 - 08/12/2016 Onset Date: DOS: 05/09/2016, DOI: 05/08/2016 Provider: Roberto Carreon MD/Dr. Ortiz Provider follow up: 08/05/2016 PHYSICAL THERAPY DIAGNOSIS: Left elbow pain, weakness and decreased range of motion s/p distal humerus fracture with open reduction internal rotation This patient would benefit from skilled physical therapy to address the following impairments: pain,impaired joint mobility, weakness. 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 Has been working with 5# restriction. Called patient's mother to reschedule next week's appointment due to travel plans. Will resume PT based on Dr. Ortiz's recommendations OBJECTIVE: Current / pertinent objective findings or assessment results at todays visit: RANGE OF MOTION: Passive: Elbow: Extension lacking 7?? Flexion: 120?? TREATMENT TODAY CONSISTED OF: Therapeutic Exercise: 24 minutes Supine PROM with gentle end range holds primary into elbow extension, then flexion. Also included was some wrist supination stretching. 3# elbow curls 2 x 30 3# shoulder ER/IR in supine 2 x 30 3# wrist supination in supine x 20 Current Home Program: Seated elbow flexion nose touches elbow extension in supine wrist supination AROM Wall walks to maintain shoulder and chest ROM x 10 reps ASSESSMENT: POST TREATMENT RESPONSE: Displays good understanding of HEP, able to complete the above exercise with written, verbal and demonstration instruction. No immediate change in symptoms. Brief progress summary: Showing good ROM. PLAN: Continue with prescribed plan of care - progress as tolerated. FOCUS NEXT SESSION WILL BE ON: Elbow ROM - progress to gentle muscle activation. Total Visit Time: 26 minutes Rehabilitation Coordinator Present NA Electronically Signed By: TODD PIPER PT On: 07/28/2016 05:21 PM Source: [employer] Document Id: [id number] SUBSTATION OPERATOR Todd Piper P.T. - 07/20/2016 5:00 PM CST elbow PT THERAPY DAILY VISIT NOTE REHAB SNAPSHOT ORDERS: EVALUATE AND TREAT FOR: distal humerus ORIF, left elbow CONTRAINDICATIONS OR SPECIAL INSTRUCTIONS: please work on elbow ROM, no lifting more than 5 pouds Visit #:6/PRN Insurance: Medicare POC Date Range: 07/01/2016 - 08/12/2016 Onset Date: DOS: 05/09/2016, DOI: 05/08/2016 Provider: Roberto Carreon MD/Dr. Ortiz Provider follow up: 08/05/2016 PHYSICAL THERAPY DIAGNOSIS: Left elbow pain, weakness and decreased range of motion s/p distal humerus fracture with open reduction internal rotation This patient would benefit from skilled physical therapy to address the following impairments: pain,impaired joint mobility, weakness. 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 Has been working with 5# restriction. OBJECTIVE: Current / pertinent objective findings or assessment results at todays visit: RANGE OF MOTION: Passive: Elbow: Extension lacking 10??, improving to lacking 8?? post treatment. Flexion: 117?? TREATMENT TODAY CONSISTED OF: Therapeutic Exercise: 26 minutes Supine PROM with gentle end range holds primary into elbow extension, then flexion. Also included was some wrist supination stretching. 3# elbow curls 2 x 30 3# shoulder ER/IR in supine 2 x 30 3# wrist supination in supine x 20 Wall walks to maintain shoulder and chest ROM x 10 reps - added to HEP Current Home Program: Seated elbow flexion nose touches elbow extension in supine wrist supination AROM Wall walks to maintain shoulder and chest ROM x 10 reps ASSESSMENT: POST TREATMENT RESPONSE: Displays good understanding of HEP, able to complete the above exercise with written, verbal and demonstration instruction. No immediate change in symptoms. Brief progress summary: Showing good ROM, a little tighter today PLAN: Continue with prescribed plan of care - progress as tolerated. FOCUS NEXT SESSION WILL BE ON: Elbow ROM - progress to gentle muscle activation. Total Visit Time: 26 minutes Rehabilitation Coordinator Present NA Electronically Signed By: TODD PIPER PT On: 07/20/2016 05:05 PM Source: [employer] Document Id: [id number] SUBSTATION OPERATOR Todd Piper P.T. - 07/14/2016 5:14 PM CST elbow PT THERAPY DAILY VISIT NOTE REHAB SNAPSHOT ORDERS: EVALUATE AND TREAT FOR: distal humerus ORIF, left elbow CONTRAINDICATIONS OR SPECIAL INSTRUCTIONS: please work on elbow ROM, no lifting more than 5 pouds Visit #:5/PRN Insurance: Medicare POC Date Range: 07/01/2016 - 08/12/2016 Onset Date: DOS: 05/09/2016, DOI: 05/08/2016 Provider: Roberto Carreon MD/Dr. Ortiz Provider follow up: 08/05/2016 PHYSICAL THERAPY DIAGNOSIS: Left elbow pain, weakness and decreased range of motion s/p distal humerus fracture with open reduction internal rotation This patient would benefit from skilled physical therapy to address the following impairments: pain,impaired joint mobility, weakness. 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 Has been working with 5# restriction. OBJECTIVE: Current / pertinent objective findings or assessment results at todays visit: RANGE OF MOTION: Passive: Elbow: Extension lacking 7?? Flexion: 114?? TREATMENT TODAY CONSISTED OF: Therapeutic Exercise: 25 minutes Supine PROM with gentle end range holds primary into elbow extension, then flexion. Also included was some wrist supination stretching. 3# elbow curls 2 x 30 3# shoulder ER/IR in supine 2 x 30 3# wrist supination in supine x 20 Current Home Program: Seated elbow flexion nose touches elbow extension in supine wrist supination AROM ASSESSMENT: POST TREATMENT RESPONSE: Displays good understanding of HEP, able to complete the above exercise with written, verbal and demonstration instruction. No immediate change in symptoms. Brief progress summary: Showing good ROM PLAN: Continue with prescribed plan of care - progress as tolerated. FOCUS NEXT SESSION WILL BE ON: Elbow ROM - progress to gentle muscle activation. Consider future pool session, wall walks, wand exercises. Total Visit Time: 26 minutes Rehabilitation Coordinator Present NA Electronically Signed By: TODD PIPER PT On: 07/14/2016 05:22 PM Modified by and Electronically Signed by: TODD PPIER PT On: 07/14/2016 05:22 PM Source: [place] Document Id: [id number] SUBSTATION OPERATOR Todd Piper, P.T. - 07/13/2016 5:15 PM CST elbow PT THERAPY DAILY VISIT NOTE REHAB SNAPSHOT ORDERS: EVALUATE AND TREAT FOR: distal humerus ORIF, left elbow CONTRAINDICATIONS OR SPECIAL INSTRUCTIONS: please work on elbow ROM, no lifting more than 5 pouds Visit #:4/PRN Insurance: Medicare POC Date Range: 07/01/2016 - 08/12/2016 Onset Date: DOS: 05/09/2016, DOI: 05/08/2016 Provider: Roberto Carreon MD/Dr. Ortiz Provider follow up: 08/05/2016 PHYSICAL THERAPY DIAGNOSIS: Left elbow pain, weakness and decreased range of motion s/p distal humerus fracture with open reduction internal rotation This patient would benefit from skilled physical therapy to address the following impairments: pain,impaired joint mobility, weakness. 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 Has been working with 5# restriction. At end of session at patients' request, patient's mother, Fabiola, was contacted via cellphone to confirm upcoming appointments. OBJECTIVE: Current / pertinent objective findings or assessment results at todays visit: RANGE OF MOTION: Passive: Elbow: Extension lacking 7?? Flexion: 114?? TREATMENT TODAY CONSISTED OF: Therapeutic Exercise: 25 minutes Supine PROM with gentle end range holds primary into elbow extension, then flexion. Also included was some wrist supination stretching. 3# elbow curls 2 x 30 3# shoulder ER/IR in supine 2 x 30 3# wrist supination in supine x 20 UBE level 2.0 x 3.5 minutes Current Home Program: Seated elbow flexion nose touches elbow extension in supine wrist supination AROM ASSESSMENT: POST TREATMENT RESPONSE: Displays good understanding of HEP, able to complete the above exercise with written, verbal and demonstration instruction. No immediate change in symptoms. Brief progress summary: Improving ROM in both planes PLAN: Continue with prescribed plan of care - progress as tolerated. FOCUS NEXT SESSION WILL BE ON: Elbow ROM - progress to gentle muscle activation. Consider future pool session, wall walks, wand exercises. Total Visit Time: 26 minutes Rehabilitation Coordinator Present NA Electronically Signed By: TODD PIPER PT On: 07/13/2016 05:17 PM Source: [email or web address] Document Id: [id number] SUBSTATION OPERATOR Todd Piper, P.T. - 07/06/2016 5:07 PM CST elbow PT THERAPY DAILY VISIT NOTE REHAB SNAPSHOT ORDERS: EVALUATE AND TREAT FOR: distal humerus ORIF, left elbow CONTRAINDICATIONS OR SPECIAL INSTRUCTIONS: please work on elbow ROM, no lifting more than 5 pouds Visit #:3/PRN Insurance: Medicare POC Date Range: 07/01/2016 - 08/12/2016 Onset Date: DOS: 05/09/2016, DOI: 05/08/2016 Provider: Roberto Carreon MD/Dr. Ortiz Provider follow up: 08/05/2016 PHYSICAL THERAPY DIAGNOSIS: Left elbow pain, weakness and decreased range of motion s/p distal humerus fracture with open reduction internal rotation This patient would benefit from skilled physical therapy to address the following impairments: pain,impaired joint mobility, weakness. 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 Has been working with 5# restriction. At end of session at patients' request, patient's mother, Fabiola, was contacted via cellphone to confirm upcoming appointments. OBJECTIVE: Current / pertinent objective findings or assessment results at todays visit: RANGE OF MOTION: Passive: Elbow: Extension lacking 14?? Flexion: 109?? TREATMENT TODAY CONSISTED OF: Therapeutic Exercise: 25 minutes Supine PROM with gentle end range holds primary into elbow extension, then flexion. Also included was some wrist supination stretching. 3# elbow curls 2 x 30 3# shoulder ER/IR in supine 2 x 30 3# wrist supination in supine x 20 wand UE flexion, abduction, ER, IR and IR with extension x 20 each direction body blade bilateral elbow flexion/extension x 60 seconds Current Home Program: Seated elbow flexion nose touches elbow extension in supine wrist supination AROM ASSESSMENT: POST TREATMENT RESPONSE: Displays good understanding of HEP, able to complete the above exercise with written, verbal and demonstration instruction. No immediate change in symptoms. Brief progress summary: Improving ROM in both planes PLAN: Continue with prescribed plan of care - progress as tolerated. FOCUS NEXT SESSION WILL BE ON: Elbow ROM - progress to gentle muscle activation. Consider future pool session, wall walks, wand exercises. Total Visit Time: 26 minutes Rehabilitation Coordinator Present NA Electronically Signed By: TODD PIPER PT On: 07/06/2016 05:12 PM Source: [email or web address] Document Id: [id number] SUBSTATION OPERATOR Todd Piper, P.T. - 07/05/2016 5:12 PM CST elbow PT THERAPY DAILY VISIT NOTE REHAB SNAPSHOT ORDERS: EVALUATE AND TREAT FOR: distal humerus ORIF, left elbow CONTRAINDICATIONS OR SPECIAL INSTRUCTIONS: please work on elbow ROM, no lifting more than 5 pouds Visit #:2/PRN Insurance: Medicare POC Date Range: 07/01/2016 - 08/12/2016 Onset Date: DOS: 05/09/2016, DOI: 05/08/2016 Provider: Roberto Carreon MD/Dr. Ortiz Provider follow up: 08/05/2016 PHYSICAL THERAPY DIAGNOSIS: Left elbow pain, weakness and decreased range of motion s/p distal humerus fracture with open reduction internal rotation This patient would benefit from skilled physical therapy to address the following impairments: pain,impaired joint mobility, weakness. 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 Has been working with 5# restriction OBJECTIVE: Current / pertinent objective findings or assessment results at todays visit: RANGE OF MOTION: Passive: Elbow: Extension lacking 16?? Flexion: 107?? TREATMENT TODAY CONSISTED OF: Therapeutic Exercise: 24 minutes Supine PROM with gentle end range holds primary into elbow extension, then flexion. Also included was some wrist supination stretching. 2# elbow curls 2 x 30 2# shoulder ER/IR in supine 2 x 30 3# wrist supination in supine x 20 wand UE flexion, abduction, ER, IR and IR with extension x 20 each direction body blade bilateral elbow flexion/extension x 60 seconds Current Home Program: Seated elbow flexion nose touches elbow extension in supine wrist supination AROM ASSESSMENT: POST TREATMENT RESPONSE: Displays good understanding of HEP, able to complete the above exercise with written, verbal and demonstration instruction. No immediate change in symptoms. Brief progress summary: Improving ROM PLAN: Continue with prescribed plan of care - progress as tolerated. FOCUS NEXT SESSION WILL BE ON: Elbow ROM - progress to gentle muscle activation. Consider future pool session, wall walks, wand exercises. Total Visit Time: 25 minutes Rehabilitation Coordinator Present NA Electronically Signed By: TODD PIPER PT On: 07/05/2016 05:17 PM Source: [employer] Document Id: [id number] SUBSTATION OPERATOR documented in this encounter H&P Notes Todd Piper P.T. - 07/01/2016 12:23 PM CST elbow REHAB SNAPSHOT ORDERS: EVALUATE AND TREAT FOR: distal humerus ORIF, left elbow CONTRAINDICATIONS OR SPECIAL INSTRUCTIONS: please work on elbow ROM, no lifting more than 5 pouds Visit #:1/PRN Insurance: Medicare POC Date Range: 07/01/2016 - 08/12/2016 Onset Date: DOS: 05/09/2016, DOI: 05/08/2016 Provider: Roberto Carreon MD/Dr. Ortiz Provider follow up: 08/05/2016 PHYSICAL THERAPY DIAGNOSIS: Left elbow pain, weakness and decreased range of motion s/p distal humerus fracture with open reduction internal rotation This patient would benefit from skilled physical therapy to address the following impairments: pain,impaired joint mobility, weakness. 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 ONSET/ETIOLOGY OF SECONDARY COMPLAINTS: None PERTINENT MEDICAL / SURGICAL HISTORY (contributing factors to the severity/complexity of the patients chief complaint): #1 Left distal humerus fx s/p open reduction, internal fixation #2 Protein S deficiency #3 History of Down syndrome #4 Transitional atrioventricular canal defect, status post repair on March 29, 2013 #5 Mitral Valve regurgitation #6 Tricuspid Valve regurgitation #7 H/O RLE DVT 2006 #8 Protein S deficiency per medical record, on life long anticoagulation. #9 H/O Cellulitis of the right lower leg. #10 Multifactorial chronic leg edema suspect chronic venous stasis. MEDICAL SCREENING PERFORMED. Screening POSITIVE for: NA Screening NEGATIVE for: numbness, tingling, weakness, night pain, history of cancer, loss of bowel/bladder control, GI Symptoms, abdominal pain, recent unexplained weight loss, dizziness, blurred vision and headaches. 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 Otherwise does ADLs independently. Has parents living in [place], has aunt in [facility]. 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 Currently on 5# lifitng restriction, normally has to lift heavy trays and containers. PATIENTS PERCEIVED QUALITY OF LIFE: Good PATIENTS GOAL FOR THERAPY: Regain as much motion and function as possible FALLS SCREEN NA - Patient is less than 65 years of age OBJECTIVE OBSERVATION: Presentation: Presents in no acute distress. Patient's father is present. Posture: WNL Integumentary: Mild non-pitting edema over left upper extremity, no discoloration of skin GAIT, LOCOMOTION, and BALANCE: Gait and Locomotion: not tested Balance and Proprioception: not tested RANGE OF MOTION: Passive: Elbow: Extension lacking 17?? Flexion: 101?? Active: Shoulder ROM WNL. Mild limitation in left wrist supination. Accessory: not tested MUSCLE PERFORMANCE: Strength: antigravity elbow flexion, elbow extension, wrist pronation and supination. Able to fire distal hand muscles. Manual muscle testing deferred due to lifting restriction Flexibility: biceps and triceps shortness SPECIAL TESTS: Quick Screen: not tested Palpation: not tested Joint Specific Special Tests: not tested Neural Provocation Tests: Not tested/indicated NEUROLOGICAL TESTS: Myotome Testing: WNL Sensation Testing: WNL Deep Tendon Reflexes: Not tested/indicated NEUROMOTOR DEVELOPMENT AND SENSORY INTEGRATION: WNL/WFL (Observed during evaluation) VENTILATION, RESPIRATION, AND CIRCULATION: WNL/WFL (At rest and with activity) ASSESSMENT PHYSICAL THERAPY DIAGNOSIS: Left elbow pain, weakness and decreased range of motion s/p distal humerus fracture with open reduction internal rotation This patient would benefit from skilled physical therapy to address the following impairments: pain,impaired joint mobility, weakness. 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 The physical therapy examination addresses 4 elements from any of the following: body structures andfunctions, activity limitations, and/or participation restrictions. The patient's clinical presentation is evolving Clinical decision making: moderate FUNCTIONAL QUESTIONNAIRES NA - due to cognitive limitations CLAIMS BASED OUTCOME REPORTING FUNCTIONAL LIMITATION: Carry Based on clinical judgement and above functional questionnaire CURRENT STATUS: CK GOAL STATUS: CJ PLAN OF CARE Skilled physical therapy interventions and plan to achieve goals and expected outcomes: Patient education to inform, educate, and/or train patients, families, significant others, and caregivers to promote and optimize physical therapy services. Coordinate, communicate, and document to ensure the patient receives appropriate, comprehensive, andefficient quality care. PROCEDURAL INTERVENTIONS: Therapeutic Exercise to develop: strength and endurance, range of motion, flexibility, joint mobility, joint stability. Manual Therapy to: improve joint mobility, improve soft tissue mobility, decrease pain, improve neural mobility, decrease edema / lymphedema. Neuromuscular Reeducation to improve: balance, proprioception, posture, coordination, kinesthetic sense, movement Education in Self-Care / Home Management to include instruction in: joint protection principles, symptom control techniques, edema control techniques. Therapeutic Activities to: improve functional performance in daily activities, work activities, sports / recreational activities. Modalities to: alleviate pain and/or edema, increase tissue flexibility, stimulate muscle function, enhance healing, increase circulation. Aquatic Therapy to develop: strength and endurance, range of motion, flexibility, joint mobility, joint stability. Community Work Reintegration ANTICIPATED GOALS AND EXPECTED OUTCOMES FUNCTIONAL GOALS Patient to demonstrate ability to lift (10# without limitation) in 6 week(s). Patient will be able to perform grooming / dressing (without limitation or pain) in 6 week(s). Patient will be able to reach overhead (without limitation or pain) in 6 week(s). Patient will be able to perform homemaking / yard work activities (without limitation or pain) in 6 week(s). Patient will be able to perform all required job duties (without limitation or pain) in 6 week(s). Patient will be independent and safe with home exercise / self-care program in 6 week(s). Rehab potential for achieving goals and expected outcomes: Good Assessment will be ongoing with changes in treatment as indicated. Benefits/risks/alternatives to treatment have been reviewed and the patient/landcare facilitator has been instructed to contact this office if they have any questions or concerns. This plan of care has been discussed with the patient/landcare facilitator and the patient/landcare facilitator is in agreement. Frequency / Duration: Patient will be seen 2 session(s) a week for 6 week(s). I certify that the above rehabilitation services are required and authorized by me, and that the patient's plan will be reviewed at 6 weeks. Certifying Provider Signature: per electronic co-sign Date: Electronic Date per Co-sign TODAYS TREATMENT: Initial Evaluation. Therapeutic Exercise: 17 minutes Supine PROM with gentle end range holds primary into elbow extension, then flexion. Also included was some wrist supination stretching. Instructed in supine elbow extension prolonged stretching with minimum of 60 second holds x 2-3 x per day. Elbow flexion ROM attempted in supine, but this either resulted in no reported stretch or painful stretch, so this was modified to seated elbow flexion with elbow supported, instructed to try to touch her nose, x 10-20 reps. POST TREATMENT RESPONSE: Displays good understanding of HEP, able to complete the above exercise with written, verbal and demonstration instruction. No immediate change in symptoms. FOCUS NEXT SESSION WILL BE ON: Elbow ROM - progress to gentle muscle activation. Consider future pool session, wall walks, wand exercises. TOTAL VISIT TIME: 50 minutes JUDICIAL LAW CLERK PRESENT NA MULTIDISCIPLINARY PATIENT / FAMILY EDUCATION RECORD Department: Physical Therapy Readiness to Learn: Ability to understand verbal and written instructions Specific Barriers to Learning: None Referrals: None Learning Needs: Rehabilitation techniques to improve functional independence Who: Patient/Father How: Demonstration, Verbal and Written Instruction Response: Appropriate verbal response, asked questions, demonstrated ability, verbalized recall / understanding. Electronically Signed By: TODD PIPER PT On: 07/01/2016 03:50 PM Modified by and Electronically Signed by: TODD PIPER PT On: 07/01/2016 12:44 PM Source: [facility] POWERCHART Document Id: [id number] SUBSTATION OPERATOR documented in this encounter Nursing Notes Todd Piper P.T. - 07/01/2016 12:44 PM CST POC Do Not File - Please Return PT Plan of Care - [facility] in [place] - Rehabilitation Services To: Roberto Carreon MD Facility: [facility] Fax: Phone: [phone] Re: Hue Medina : 1975 Diagnoses: distal humerus ORIF, left elbow PLAN OF CARE Skilled physical therapy interventions and plan to achieve goals and expected outcomes: Patient education to inform, educate, and/or train patients, families, significant others, and caregivers to promote and optimize physical therapy services. Coordinate, communicate, and document to ensure the patient receives appropriate, comprehensive, andefficient quality care. PROCEDURAL INTERVENTIONS: Therapeutic Exercise to develop: strength and endurance, range of motion, flexibility, joint mobility, joint stability. Manual Therapy to: improve joint mobility, improve soft tissue mobility, decrease pain, improve neural mobility, decrease edema / lymphedema. Neuromuscular Reeducation to improve: balance, proprioception, posture, coordination, kinesthetic sense, movement Education in Self-Care / Home Management to include instruction in: joint protection principles, symptom control techniques, edema control techniques. Therapeutic Activities to: improve functional performance in daily activities, work activities, sports / recreational activities. Modalities to: alleviate pain and/or edema, increase tissue flexibility, stimulate muscle function, enhance healing, increase circulation. Aquatic Therapy to develop: strength and endurance, range of motion, flexibility, joint mobility, joint stability. Community Work Reintegration ANTICIPATED GOALS AND EXPECTED OUTCOMES FUNCTIONAL GOALS Patient to demonstrate ability to lift (10# without limitation) in 6 week(s). Patient will be able to perform grooming / dressing (without limitation or pain) in 6 week(s). Patient will be able to reach overhead (without limitation or pain) in 6 week(s). Patient will be able to perform homemaking / yard work activities (without limitation or pain) in 6 week(s). Patient will be able to perform all required job duties (without limitation or pain) in 6 week(s). Patient will be independent and safe with home exercise / self-care program in 6 week(s). Rehab potential for achieving goals and expected outcomes: Good Assessment will be ongoing with changes in treatment as indicated. Benefits/risks/alternatives to treatment have been reviewed and the patient/landcare facilitator has been instructed to contact this office if they have any questions or concerns. This plan of care has been discussed with the patient/landcare facilitator and the patient/landcare facilitator is in agreement. Frequency / Duration: Patient will be seen 2 session(s) a week for 6 week(s). I certify that the above rehabilitation services are required and authorized by me, and that the patient's plan will be reviewed at 6 weeks. Health Care Provider Signature: Date: Physician's Instructions: Do Not File - Please sign and return to: [facility] [place] Re[facility] Services [address] [place] [address] Tracking Only - Medicare? YES Electronically Signed By: TODD PIPER PT On: 07/01/2016 03:59 PM Modified by and Electronically Signed by: TODD PIPER PT On: 07/01/2016 03:59 PM Source: [place] Document Id: [id number] SUBSTATION OPERATOR documented in this encounter Miscellaneous Notes Miscellaneous - Conversion, Historical Provider Ser - 07/04/2016 7:14 AM GAS SUBSTATION OPERATOR Coding Summary-Paper Based CODING DATE: 07/04/2016 FINAL [facility] STATUS: Still Patient/Expected to Rtn [facility] PAYOR: Medicare Advantage ADMIT DX: REASON FOR VISIT DX: FINAL DX: PRINCIPAL: S42.402D Unspecified fracture of lower end of left humerus, subsequent encounter for fracture with routine healing SECONDARY: M25.522 Pain in left elbow M25.621 Stiffness of right elbow, not elsewhere classified R29.898 Other symptoms and signs involving the musculoskeletal system W19.XXXD Unspecified fall, subsequent encounter PROCEDURES DOCTOR NAME DATE NOTE: The code number assigned matches the documented diagnosis and / or procedure in the patient's chart. However, the narrative phrase printed from the coding software may appear abbreviated, or result in slightly different terminology. Coded By: LUIS CARLOS FOX Date Saved: 07/04/2016 07:14 am Source: [facility] POWERCHART Document Id: [id number] documented in this encounter Plan of Treatment Not on filedocumented as of this encounter Visit Diagnoses Not on filedocumented in this encounter
--- OUTSIDE RECORDS SUMMARY | 2022-04-25 15:59 | XMS_ITS | Encounter Summary ---
:1975 Author Organization [facility] Address [address] [place] [id number] Care Team Providers Name Role Phone Sridhar Garibay M.D. Primary Care Provider Encounter Details Date Type Department Care Team Description 05/11/2017 Anticoagulation Visit Department of [facility] oagulant Anticoagulation in [facility] ( Primary [place], [place] R.N. Dx) [address] [facility] [id number] [place], [place] [phone] Social History Tobacco Use Types Packs/Day Years Used Date Smoking Tobacco: Never Sex Assigned at Date Recorded Not on file documented as of this encounter Progress Notes Chava Garza RKareem. - 05/11/2017 11:39 AM CST Warfarin Maintenance Nursing Protocol Goal [...] maintenance warfarin dosing and follow-up Additional info: none Previous INR was Therapeutic. Today???s INR is Supratherapeutic, Causes: Unknown. Dosing and follow up recommendation: INR 3.3-3.5 Decreased average daily dose by 50% x1 dose, then resume current dose until next INR check. . Next INR: Pt. will return sooner than protocol recommendation, per nursing judgment due to due to Thanksgiving patient is unable to recheck INR within 8-10 daytimeframe, recommending earlier recheck versus later due to high value. Pt on LMWH: No Patient Visit summary provided to: MotherFabiola repeats back dosing instructions and has no furtherquestions at this time. SERVICE LOCKSMITH documented in this encounter Plan of Treatment Not on filedocumented as of this encounter Results (ABNORMAL) PT (Prothrombin Time) with INR (05/17/2017 3:[address] [facility]SM[facility]) [facility] gist Method Time Signature Prothrombin 20.4 (H) 8.8 - 11.9 05/17/2017 [facility] Time, P sec 3:49 PM [facility] INR 1.9 0.9 - 1.2 05/17/2017 [facility] 3:49 PM [facility] Comment: Standard intensity warfarin therapeutic range: 2.0 to 3.0 High intensity warfarin therapeutic rang e: 2.5 to 3.5 Specimen Anatomical Collection Method Collection Time Receive d Time (Source) Location / / Volume Laterality Blood (Blood, 05/17/2017 3:26 PM 05/17/20 3:28 Venous) ROAD [facility]OCKSMITH PM ROAD [facility] Sridhar Garibay M.D. LAB BLOOD ADD-ON Performing Organization Address City/State/ZIP Code Phon e Number [facility] [address] [facility] [place] [address] [facility] documented in this encounter Visit Diagnoses Diagnosis Anticoagulant Therapy - Primary documented in this encounter Care Teams Gas Pumping Station Operator Relationship Specialty Start Date End Date Sridhar Garibay M.D. PCP - General 12/08/16 05/23/18 [address] [place] [address] documented as of this encounter
--- OUTSIDE RECORDS SUMMARY | 2022-04-25 15:59 | XMS_ITS | Encounter Summary ---
:1975 Author Organization [facility] Address [address] [place] [id number] Care Team Providers Name Role Phone Unavailable Primary Care Provider Unavailable Encounter Details Date Type Department Care Team Description 11/24/2016 Hospital Encounter HX [facility] Marsha Henriquez M.D. [address] [place], [place] [address] (Wo rk) Social History [...] - - Height 146 cm (4' 9.48) 11/24/2016 9:19 AM CDT Body Mass Index - - [...] this encounter Miscellaneous Notes Miscellaneous - Wali Mcclellan R.N. - 12/05/2016 9:30 AM CDT Yearly INR Renewal Document Contains Addenda Addendum by TASHA HENRIQUEZ MD on December 05, 2016 13:59:50 CDT From: TASHA HENRIQUEZ MD Sent: 12/05/2016 13:59:50 CDT Subject: RE:Yearly INR Renewal Approved Order:Anticoagulation Clinic Order Details: 12/05/2016 13:59 CDT, 12/05/2017 9:30 CDT, 2 - 3, g. Lifelong, DVT, lower extremity, [facility] Signed by TASHA HENRIQUEZ MD 12/05/2016 13:59:49 From: WALI MCCLELLAN RN ( Anticoagulation Nurse) To: TASHA HENRIQUEZ MD; Sent: 12/05/2016 09:30:27 CDT Subject: Yearly INR Renewal On hold pending signature Order:Anticoagulation Clinic Order Details: 12/05/2016 9:30 CDT, 12/05/2017 9:30 CDT, 2 - 3, g. Lifelong, DVT, lower extremity, [facility] Please sign annual INR renewal order if patient is still appropriate for same range and Coumadin. Thanks! Source: [facility] POWERCHART Document Id: [id number] Miscellaneous - Wali Mcclellan R.N. - 12/05/2016 9:26 AM CDT Anticoagulation Patient Intake Anticoagulation Patient Intake Entered On: 12/05/2016 9:28 CDT Performed On: 12/05/2016 9:26 CDT by WALI MCCLELLAN RN Plan INR goal range : 2.0 - 3.0 Duration of Therapy : Lifelong Tablet Size : 2 mg, 5 mg WALI MCCLELLAN RN - 12/05/2016 9:26 CDT Anticoagulation Management Plan Grid Date : [...] darya BURGESS JM WALI Ervin RN - 12/05/2016 9:26 CDT WALI MCCLELLAN RN - 12/05/2016 9:26 CDT WALI MCCLELLAN RN - 12/05/2016 9:26 CDT WALI MCCLELLAN RN - 12/05/2016 9:26 CDT Date : 12/26/2013 CDT 01/30/2014 CDT 03/06/2014 CDT 03/10/2014 CDT Location of INR sample : Lab Lab Lab Lab Type of Sample : Venous Venous Venous Venous INR Result : 2.79 2.7 4.8 3.1 Warfarin Dose : 5mg mon/wed/fri and 2.5mg all other days 5mg Mon/Wed/Fri, 2.5mg all other days HOLD 03/06, 2.5mg [...] completed by : WALI Davidson RN - 12/05/2016 9:26 CDT WALI MCCLELLAN RN - 12/05/2016 9:26 CDT WALI MCCLELLAN RN - 12/05/2016 9:26 CDT WALI MCCLELLAN RN - 12/05/2016 9:26 CDT Date : 03/20/2014 CDT 03/27/2014 CDT [...] try dec as noted Called to mom, almaz to meds has been drinking grape juice. no bleeding. no vitamin K per Dr. Duarte. dose consultwith Agatha Hopkins/Pharmacy. instructed to be seen if bleeding occurs. called mom, Recommend Recheck : One week Two weeks Two days One day, Other: Plan completed by : darya lackey [facility]/pharmacy WALI MCCLELLAN RN - 12/05/2016 9:26 CDT WALI MCCLELLAN RN - 12/05/2016 9:26 CDT WALI MCCLELLAN RN - 12/05/2016 9:26 CDT WALI MCCLELLAN RN - 12/05/2016 9:26 CDT Date : 04/17/2014 CDT 04/24/2014 CDT 05/01/2014 VBA PROGRAMMER 05/15/2014 VBA PROGRAMMER Location of INR sample : Lab Lab [...] will trynoted dose called to mom Fabiola [phone] called to Fabiola/no changes Called to mother/Fabiola, not awareof any changes Recommend Recheck : One week One week Two weeks Two weeks Plan completed by : MARIA GUADALUPE FITCH OZZY JM WALI MCCLELLAN RN - 12/05/2016 9:26 CDT WALI MCCLELLAN RN - 12/05/2016 9:26 CDT WALI MCCLELLAN RN - 12/05/2016 9:26 CDT WALI MCCLELLAN RN - 12/05/2016 9:26 CDT Date : 06/03/2014 VBA PROGRAMMER 06/05/2014 VBA PROGRAMMER 06/10/2014 VBA PROGRAMMER 06/11/2014 VBA PROGRAMMER Location of INR sample : Lab Type [...] to surgery (06/06) with no bridging. Called Fabiola granados. Hue will be staying in [place] 2wks post-surgery & have INR drawn there. [...] lovenox tomorrow AM as ordered. INR in [place] for next several weeks as pt will be recovering there. Recommend Recheck : Other: depending on Dr. Henriquez's preop. Other: 06/18 Other: 06/13/14 Plan completed by : WALI TYLER RN - 12/05/2016 9:26 CDT WALI MCCLELLAN RN - 12/05/2016 9:26 CDT WALI MCCLELLAN RN - 12/05/2016 9:26 CDWAIL OGLESBY RN - 12/05/2016 9:26 CDT Date : 06/14/2014 VBA PROGRAMMER 06/14/2014 VBA PROGRAMMER 06/16/2014 VBA PROGRAMMER 06/23/2014 VBA PROGRAMMER Location of INR sample : Clinic Lab Lab Type of Sample : Venous Venous INR Result : 1.3 on 06/13 2.4 faxed from lab 2.0 Warfarin Dose : (pt took 2.5mg 06/13) 5mg Sat and 5mg Sun (06/14 and 06/15) 5mg Mon and 2.5mg all other days 5mg Mon and 2.5mg all other days Total Weekly Warfarin Dose : 20 20 Comment : [place] lab called with INR result from 06/13, reported they left a message with Dr. Henriquez and hadn't heard back, spoke with mother, Fabiola, and gave doses, continue Lovenox and repeat INR 06/16, message left with INR clinic in to contact [place] Please contact [place] lab on 06/16 for result and may call Fabiola at [phone] with instructions call to Fabiola/will stop Lovenox injections and take noted dose/pt has an appt here in 06/23 so will do lab appt here that day Called to Fabiola/ Hue will be back at [facility] by next draw. will have done on . no changes to meds/diet. Recommend Recheck : Two days One week Two weeks Plan completed by : WALI Steven LM, RN - 12/05/2016 9:26 CDT WALI MCCLELLAN RN - 12/05/2016 9:26 CDT WALI MCCLELLAN RN - 12/05/2016 9:26 PATRICIAT WALI MCCLELLAN RN - 12/05/2016 9:26 CDT Date : 07/10/2014 VBA PROGRAMMER 07/17/2014 VBA PROGRAMMER 07/31/2014 VBA PROGRAMMER 09/11/2014 CDT Location of INR sample : [...] completed by : WALI Yarbrough RN - 12/05/2016 9:26 CDT WALI MCCLELLAN RN - 12/05/2016 9:26 WALI GAILNDO RN - 12/05/2016 9:26 WALI GALINDO RN - 12/05/2016 9:26 CDT Date : 09/12/2014 CDT 09/25/2014 CDT [...] completed by : WALI Almaguer RN - 12/05/2016 9:26 CDT WALI MCCLELLAN RN - 12/05/2016 9:26 CDT WALI MCCLELLAN RN - 12/05/2016 9:26 CDT WALI MCCLELLAN RN - 12/05/2016 9:26 CDT Date : 10/23/2014 CDT 11/13/2014 CDT [...] is she is 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 [employer]/no bleeding/consult with Quintin/Pharmacy and called Mom with orders Per Meredith Hernandez, no changes, has been drinking some Kiwi Juice, no bleeding/consult with Quintin/Pharmacy Called to mom /Fabiola, no changes, [facility] Recommend Recheck : Three weeks One week One week One week Plan completed by : WALI Skinner RN - 12/05/2016 9:26 CDT WALI MCCLELLAN RN - 12/05/2016 9:26 CDT WALI MCCLELLAN RN - 12/05/2016 9:26 CDT WALI MCCLELLAN RN - 12/05/2016 9:26 CDT Date : 12/04/2014 CDT 12/18/2014 CDT [...] completed by : WALI Cabrera RN - 12/05/2016 9:26 CDT WALI MCCLELLAN RN - 12/05/2016 9:26 CDT WALI MCCLELLAN RN - 12/05/2016 9:26 CDT WALI MCCLELLAN RN - 12/05/2016 9:26 CDT Date : 02/05/2015 CDT 02/26/2015 CDT [...] completed by : WALI LAWRENCE RN - 12/05/2016 9:26 CDT WALI MCCLELLAN RN - 12/05/2016 9:26 PATRICIAT WALI MCCLELLAN RN - 12/05/2016 9:26 CDT WALI MCCLELLAN RN - 12/05/2016 9:26 CDT Date : 04/09/2015 CDT 05/07/2015 VBA PROGRAMMER 06/04/2015 VBA PROGRAMMER 07/02/2015 VBA PROGRAMMER Location of INR sample : Lab Lab [...] completed by : WALI Nelson RN - 12/05/2016 9:26 CDT WALI MCCLELLAN RN - 12/05/2016 9:26 CDT WALI MCCLELLAN RN - 12/05/2016 9:26 CDT WALI MCCLELLAN RN - 12/05/2016 9:26 CDT Date : 08/06/2015 VBA PROGRAMMER 09/17/2015 CDT 10/29/2015 CDT 11/12/2015 CDT Location [...] completed by : WALI Toussaint RN - 12/05/2016 9:26 CDT WALI MCCLELLAN RN - 12/05/2016 9:26 CDT WALI MCCLELLAN RN - 12/05/2016 9:26 CDT WALI MCCLELLAN RN - 12/05/2016 9:26 CDT Date : 11/19/2015 CDT 12/03/2015 CDT [...] completed by : WALI Will RN - 12/05/2016 9:26 CDT WALI MCCLELLAN RN - 12/05/2016 9:26 CDT WALI MCCLELLAN RN - 12/05/2016 9:26 CDWALI OGLESBY RN - 12/05/2016 9:26 CDT Date : 02/19/2016 CDT 02/20/2016 CDT 02/21/2016 CDT 02/22/2016 CDT Location of INR sample : [facility] Type of Sample : Venous [...] completed by : Tyshawn Brizuela, Pharm.DMichael Brizuela, Pharm.D. BAUDILIO, PharmD Eliseo Quezada PharmD. WALI MCCLELLAN RN - 12/05/2016 9:26 CDT WALI MCCLELLAN RN - 12/05/2016 9:26 CDT WALI MCCLELLAN RN - 12/05/2016 9:26 CDT WALI MCCLELLAN RN - 12/05/2016 9:26 CDT Date : 02/23/2016 CDT 02/24/2016 CDT [...] day Plan completed by : Eliseo Quezada PharmValentina. Eliseo Quezada, PharmD. Tyshawn Brizuela, Pharm.D. Eliseo Quezada, PharmD. WALI MCCLELLAN RN - 12/05/2016 9:26 CDT WALI MCCLELLAN RN - 12/05/2016 9:26 CDT WALI MCCLELLAN RN - 12/05/2016 9:26 CDT WALI MCCLELLAN RN - 12/05/2016 9:26 CDT Date : 02/27/2016 CDT 03/01/2016 CDT 03/04/2016 CDT 03/07/2016 CDT Location of INR sample : Hospital Clinic Lab Clinic Type of Sample : Venous Capillary/POC Venous Capillary/POC INR Result : 2.07 2.5 2.2 2.4 Warfarin Dose : 2 mg daily 2mg daily 2.5mg 03/04-03/06 2.5mg Fri,Sat,Sun Total Weekly Warfarin Dose : 14 15.5 Comment : Pt being discharged on Bactrim. Will sweet pickle maker rx for 2 mg tabs On bactrim 2 days left, has f/u in [place] on Monday. Pt mother states plan to return to [facility] on 03/06. next [place]. 2mg Tu[place]Th Rev'd with Jelly/Pharmacist,called to mom/Fabiola pt done with Willie Henriquez today pt is going back to [place] with mom for another 1-2wks,she would like INR checked in [place] but INR Clinic to follow will send msg to [facility] INR Clinic Stay on 2.5mg daily Recommend Recheck : Three days Three days, Other: in [place] Other: 03/07/16 Other: 4 days Plan completed by : WALI Cartagena RN, RN, RN - 12/05/2016 9:26 CDT WALI MCCLELLAN RN - 12/05/2016 9:26 CDT WALI MCCLELLAN RN - 12/05/2016 9:26 CDT WALI MCCLELLAN RN - 12/05/2016 9:26 CDT Date : 03/11/2016 CDT 03/16/2016 CDT [...] Fabiola/pt to do next INR at on a ./no changes called to Fabiola/no changes called to Fabiola/Mom,no changes/missed doses Recommend Recheck : Other: 03/16/16 Other: 03/31/16(2 weeks) One month Two weeks Plan completed by : WALI Segura RN - 12/05/2016 9:26 CDT WALI MCCLELLAN RN - 12/05/2016 9:26 CDT WALI MCCLELLAN RN - 12/05/2016 9:26 CDT WALI MCCLELLAN RN - 12/05/2016 9:26 CDT Date : 05/11/2016 VBA PROGRAMMER 05/12/2016 VBA PROGRAMMER 05/17/2016 VBA PROGRAMMER 05/24/2016 VBA PROGRAMMER Location of INR sample : Other: [place] Other: [place] Other: [place] Type of Sample : INR Result : 1.6 2.4 1.8 Warfarin Dose : 2.5mg daily 2.5mg daily 5mg 05/24 then 2.5mg daily Total Weekly Warfarin Dose : 17.5 Comment : Per Mom/Fabiola, pt disch from [facility] [place], fell & fx left humerus 05/08, surg [...] completed by : WALI REIS RN - 12/05/2016 9:26 CDT WALI MCCLELLAN RN - 12/05/2016 9:26 CDT WALI MCCLELLAN RN - 12/05/2016 9:26 CDT WALI MCCLELLAN RN - 12/05/2016 9:26 CDT Date : 06/01/2016 VBA PROGRAMMER 06/06/2016 VBA PROGRAMMER 06/10/2016 VBA PROGRAMMER 06/13/2016 VBA PROGRAMMER Location of INR sample : Other: [place] Other: [facility] Other: [facility] Type of Sample : INR Result : 1.6 1.4 1.6 2.2 Warfarin Dose : 5mg 12/8, 2.5mg 06/03, 06/04, 12 5mg 06/06 & 13,2.5mg 06/08 & 06/09 5mg16, 06/11, 2.5mg 06/12 2.5mg Mon,Wed,fri and 5mg all other days Total Weekly Warfarin Dose : Comment : processed 06/02/had 2.5mg last night/called to Mom/Fabiola, no changes rev'd with Burke/Pharmacist,called to mom/Fabiola pt is staying with sister no changes she is aware of will be back 06/10 rev'd with Quintin/Pharmacy/called to MomFabiola rev'd with Prasad/Pharamcist,called to mom Recommend Recheck : Other: 06/06/2016 Other: 06/10/16 Three days Other: 06/17/16 Plan completed by : WALI Mckay RN - 12/05/2016 9:26 CDT WALI MCCLELLAN RN - 12/05/2016 9:26 CDT WALI MCCLELLAN RN - 12/05/2016 9:26 CDT WALI MCCLELLAN RN - 12/05/2016 9:26 CDT Date : 06/17/2016 VBA PROGRAMMER 06/24/2016 VBA PROGRAMMER 07/07/2016 VBA PROGRAMMER 07/28/2016 VBA PROGRAMMER Location of INR sample : Other: [facility] CF Other: [facility] CF Lab Lab Type of Sample [...] is having tooth pulled 08/31/[address] [facility] Oral Surgery will need INR checked that am scheduled.letter faxed to [facility] oral surgery to see what INR needs leon Recommend Recheck : One week Other: 07/07/16 Three weeks Two weeks Plan completed by : WALI GIBBS RN - 12/05/2016 9:26 CDT WALI MCCLELLAN RN - 12/05/2016 9:26 CDWALI OGLESBY RN - 12/05/2016 9:26 CDT WALI MCCLELLAN RN - 12/05/2016 9:26 CDT Date : 08/11/2016 VBA PROGRAMMER 08/31/2016 VBA PROGRAMMER 09/29/2016 CDT 10/27/2016 CDT Location of INR [...] completed by : WALI Joyner RN - 12/05/2016 9:26 CDT WALI MCCLELLAN RN - 12/05/2016 9:26 CDT WALI MCCLELLAN RN - 12/05/2016 9:26 WALI GALINDO RN - 12/05/2016 9:26 CDT Date : 11/24/2016 CDT 12/05/2016 CDT Location of INR sample : Lab Type of Sample : Venous INR Result : 2.2 Warfarin Dose : 5mg Sun/Tues/Thurs, 2.5mg all other days Total Weekly Warfarin Dose : 25 Comment : called to Mom/Fabiola/states has appt on 11/01 in [place]/may need surgery on non healing arm fx/surgery tentatively scheduled for 12/21/on calendar to check [facility] for pre-op instructions and schedule next INR Per Mom/Fabiola, arm is healing, no surg at this time, may have in Feb, she will let us know Recommend Recheck : Other: 12/22/16 Plan completed by : WALI WINCHESTER RN - 12/05/2016 9:26 CDT WALI MCCLELLAN RN - 12/05/2016 9:26 CDT Source: [facility] CRAZECHART Document Id: [id number]![id number] Miscellaneous - Khadar Banda R.N. - 11/24/2016 11:12 AM CDT Anticoagulation Patient Intake Anticoagulation Patient Intake Entered On: 11/24/2016 11:15 CDT Performed On: 11/24/2016 11:12 CDT by KHADAR BANDA RN Plan INR goal range : 2.0 - 3.0 Duration of Therapy : Lifelong Tablet Size : 2 mg, 5 mg KHADAR BANDA RN - 11/24/2016 11:12 CDT Anticoagulation Management Plan Grid Date : [...] completed by : KHADAR Manning RN - 11/24/2016 11:12 CDT KHADAR BANDA RN - 11/24/2016 11:12 CDT KHADAR BANDA RN - 11/24/2016 11:12 CDT KHADAR BANDA RN - 11/24/2016 11:12 CDT Date : 12/26/2013 CDT 01/30/2014 CDT [...] a long time, no bleeding now left [facility] for Fabiola,call if changes Recommend Recheck : Other: 5 weeks Other: 5 weeks Other: 03/10/2014 Other: 03/20/14 Plan completed by : KHADAR hCo RN - 11/24/2016 11:12 CDT KHADAR BANDA RN - 11/24/2016 11:12 CDT KHADAR BANDA RN - 11/24/2016 11:12 CDT KHADAR BANDA RN - 11/24/2016 11:12 CDT Date : 03/20/2014 CDT 03/27/2014 CDT [...] try dec as noted Called to mom, almaz to meds has been drinking grape juice. no bleeding. no vitamin K per Dr. Duarte. dose consultwith Agatha Hopkins/Pharmacy. instructed to be seen if bleeding occurs. called mom, Recommend Recheck : One week Two weeks Two days One day, Other: Plan completed by : darya lackey LM /pharmacy KHADAR BANDA RN - 11/24/2016 11:12 CDT KHADAR BANDA RN - 11/24/2016 11:12 CDT KHADAR BANDA RN - 11/24/2016 11:12 CDT KHADAR BANDA RN - 11/24/2016 11:12 CDT Date : 04/17/2014 CDT 04/24/2014 CDT 05/01/2014 VBA PROGRAMMER 05/15/2014 VBA PROGRAMMER Location of INR sample : Lab Lab [...] will trynoted dose called to mom Fabiola [phone] called to Fabiola/no changes Called to mother/Fabiola, not awareof any changes Recommend Recheck : One week One week Two weeks Two weeks Plan completed by : KHADAR HACKETT RN - 11/24/2016 11:12 CDT KHADAR BANDA RN - 11/24/2016 11:12 CDT KHADAR BANDA RN - 11/24/2016 11:12 CDT KHADAR BANDA RN - 11/24/2016 11:12 CDT Date : 06/03/2014 VBA PROGRAMMER 06/05/2014 VBA PROGRAMMER 06/10/2014 VBA PROGRAMMER 06/11/2014 VBA PROGRAMMER Location of INR sample : Lab Type [...] Called motherFabiola. Hue will be staying in [place] 2wks post-surgery & have INR drawn there. [...] lovenox tomorrow AM as ordered. INR in [place] for next several weeks as pt will be recovering there. Recommend Recheck : Other: depending on Dr. Henriquez's preop. Other: 06/18 Other: 06/13/14 Plan completed by : KHADAR SANDERS RN - 11/24/2016 11:12 CDT KHADAR BANDA RN - 11/24/2016 11:12 CDT KHADAR BANDA RN - 11/24/2016 11:12 PATRICIAT KHADAR BANDA RN - 11/24/2016 11:12 CDT Date : 06/14/2014 VBA PROGRAMMER 06/14/2014 VBA PROGRAMMER 06/16/2014 VBA PROGRAMMER 06/23/2014 VBA PROGRAMMER Location of INR sample : Clinic Lab Lab Type of Sample : Venous Venous INR Result : 1.3 on 06/13 2.4 faxed from lab 2.0 Warfarin Dose : (pt took 2.5mg 06/13) 5mg Sat and 5mg Sun (06/14 and 06/15) 5mg Mon and 2.5mg all other days 5mg Mon and 2.5mg all other days Total Weekly Warfarin Dose : 20 20 Comment : [place] lab called with INR result from 06/13, reported they left a message with Dr. Henriquez and hadn't heard back, spoke with mother, Fabiola, and gave doses, continue Lovenox and repeat INR 06/16, message left with INR clinic in [place] to contact [place] Please contact [place] lab on 06/16 for result and may call Fabiola at [phone] with instructions call to Fabiola/will stop Lovenox injections and take noted dose/pt has an appt here in [place] 06/23 so will do lab appt here that day Called to Fabiola/ Hue will be back at [facility] by next draw. will have done on . no changes to meds/diet. Recommend Recheck : Two days One week Two weeks Plan completed by : KHADAR Mattson LM RN - 11/24/2016 11:12 CDT KHADAR BANDA RN - 11/24/2016 11:12 CDT KHADAR BANDA RN - 11/24/2016 11:12 CDT KHADAR BANDA RN - 11/24/2016 11:12 CDT Date : 07/10/2014 VBA PROGRAMMER 07/17/2014 VBA PROGRAMMER 07/31/2014 VBA PROGRAMMER 09/11/2014 CDT Location of INR sample : [...] Two weeks Plan completed by : darya BoyceK ly KHADAR GUSTAFSON RN - 11/24/2016 11:12 CDT KHADAR BANDA RN - 11/24/2016 11:12 CDT KHADAR BANDA RN - 11/24/2016 11:12 CDT KHADAR BANDA RN - 11/24/2016 11:12 CDT Date : 09/12/2014 CDT 09/25/2014 CDT [...] weeks Plan completed by : MARIA GUADALUPE lackey JM KHADAR Mae RN - 11/24/2016 11:12 CDT KHADAR BANDA RN - 11/24/2016 11:12 CDT KHADAR BANDA RN - 11/24/2016 11:12 CDT KHADAR BANDA RN - 11/24/2016 11:12 CDT Date : 10/23/2014 CDT 11/13/2014 CDT [...] completed by : KHADAR Toro RN - 11/24/2016 11:12 CDT KHADAR BANDA RN - 11/24/2016 11:12 CDT KHADAR BANDA RN - 11/24/2016 11:12 CDT KHADAR BANDA RN - 11/24/2016 11:12 CDT Date : 12/04/2014 CDT 12/18/2014 CDT [...] completed by : KHADAR Vargas RN - 11/24/2016 11:12 CDT KHADAR BANDA RN - 11/24/2016 11:12 CDT KHADAR BANDA RN - 11/24/2016 11:12 CDT KHADAR BANDA RN - 11/24/2016 11:12 CDT Date : 02/05/2015 CDT 02/26/2015 CDT [...] completed by : KHADAR SLOAN RN - 11/24/2016 11:12 CDT KHADAR BANDA RN - 11/24/2016 11:12 CDT KHADAR BANDA RN - 11/24/2016 11:12 CDT KHADAR BANDA RN - 11/24/2016 11:12 CDT Date : 04/09/2015 CDT 05/07/2015 VBA PROGRAMMER 06/04/2015 VBA PROGRAMMER 07/02/2015 VBA PROGRAMMER Location of INR sample : Lab Lab [...] completed by : KHADAR Dowell RN - 11/24/2016 11:12 CDT KHADAR BANDA RN - 11/24/2016 11:12 CDT KHADAR BANDA RN - 11/24/2016 11:12 CDT KHADAR BANDA RN - 11/24/2016 11:12 CDT Date : 08/06/2015 VBA PROGRAMMER 09/17/2015 CDT 10/29/2015 CDT 11/12/2015 CDT Location [...] completed by : KHADAR Rodriguez RN - 11/24/2016 11:12 CDT KHADAR BANDA RN - 11/24/2016 11:12 CDT KHADAR BANDA RN - 11/24/2016 11:12 CDT KHADAR BANDA RN - 11/24/2016 11:12 CDT Date : 11/19/2015 CDT 12/03/2015 CDT [...] month One month Plan completed by : adrya LERMA ly KHADAR CAICEDO RN - 11/24/2016 11:12 CDT KHADAR BANDA RN - 11/24/2016 11:12 CDT KHADAR BANDA RN - 11/24/2016 11:12 CDT KHADAR BANDA RN - 11/24/2016 11:12 CDT Date : 02/19/2016 CDT 02/20/2016 CDT [...] Eliseo Quezada, PharmD. KHADAR BANDA RN - 11/24/2016 11:12 CDT KHADAR BANDA RN - 11/24/2016 11:12 CDT KHADAR BANDA RN - 11/24/2016 11:12 CDT KHADAR BANDA RN - 11/24/2016 11:12 CDT Date : 02/23/2016 CDT 02/24/2016 CDT [...] Eliseo Quezada, PharmD. KHADAR BANDA RN - 11/24/2016 11:12 CDT KHADAR BANDA RN - 11/24/2016 11:12 CDT KHADAR BANDA RN - 11/24/2016 11:12 CDT KHADAR BANDA RN - 11/24/2016 11:12 CDT Date : 02/27/2016 CDT 03/01/2016 CDT 03/04/2016 CDT 03/07/2016 CDT [facility] Type of Sample : Venous Capillary/POC Venous Capillary/POC INR Result : 2.07 2.5 2.2 2.4 Warfarin Dose : 2 mg daily 2mg daily 2.5mg 03/04-03/06 2.5mg Mon,Mon,Mon Total Weekly Warfarin Dose : 14 15.5 Comment : Pt being discharged on Bactrim. Will sweet pickle maker rx for 2 mg tabs On bactrim 2 days left, has f/u in [place] on Monday. Pt mother states plan to return to [facility] on 03/06. next f/u will be in [facility]. 2mg TuWTh Rev'd with Jelly/Pharmacist,called to mom/Fabiola [...] : KHADAR Diana RN, RN RN - 11/24/2016 11:12 CDT KHADAR BANDA RN - 11/24/2016 11:12 CDT KHADAR BANDA RN - 11/24/2016 11:12 CDT KHADAR BANDA RN - 11/24/2016 11:12 CDT Date : 03/11/2016 CDT 03/16/2016 CDT [...] pt will be staying with sister in [facility] next week she will have INR drawn in again called to Fabiola/pt to do next INR at on a ./no changes called to Fabiola/no changes called to Fabiola/Mom,no changes/missed doses Recommend Recheck : Other: 03/16/16 Other: 03/31/16(2 weeks) One month Two weeks Plan completed by : JENIFER PRECIADO ly NB KHADAR BANDA RN - 11/24/2016 11:12 CDT KHADAR BANDA RN - 11/24/2016 11:12 CDT KHADAR BANDA RN - 11/24/2016 11:12 CDT KHADAR BANDA RN - 11/24/2016 11:12 CDT Date : 05/11/2016 VBA PROGRAMMER 05/12/2016 VBA PROGRAMMER 05/17/2016 VBA PROGRAMMER 05/24/2016 VBA PROGRAMMER Location of INR sample : Other: [facility] Other: [place] Other: [place] Type of Sample : INR Result : 1.6 2.4 1.8 Warfarin Dose : 2.5mg daily 2.5mg daily 5mg 05/24 then 2.5mg daily Total Weekly Warfarin Dose : 17.5 Comment : Per Mom/Fabiola, pt disch from [facility] today, fell & fx left humerus 05/08, surg 05/09, INR 1.3 on 05/08, 1.5 on 05/09, 1.6 on 05/10 & 1.4 05/11, has had 2.5mg daily since 05/09, going to for INR 05/12 & result to be faxed to us, not on Lovenox rev'd with JimPharmacist,called to mom/Fabiola,she will have it done in [facility] again [place] Called to Mom/Fabiola, no changes Called to Mom/Fabiola, no missed doses, took pain pill last night, has not taken any for a while, no other changes Recommend Recheck : Other: 05/12/16 Other: 05/17/16 One week One week Plan completed by : KHADAR MAYORGA RN - 11/24/2016 11:12 CDT KHADAR BANDA RN - 11/24/2016 11:12 CDT KHADAR BANDA RN - 11/24/2016 11:12 CDT KHADAR BANDA RN - 11/24/2016 11:12 CDT Date : 06/01/2016 VBA PROGRAMMER 06/06/2016 VBA PROGRAMMER 06/10/2016 VBA PROGRAMMER 06/13/2016 VBA PROGRAMMER Location of INR sample : Other: [place] Other: [facility] Other: [facility] Type of Sample : INR Result : 1.6 1.4 1.6 2.2 Warfarin Dose : 5mg 06/02, 2.5mg /, 12, 12 5mg 12/ & 12/,2.5mg 06/08 & 1215 5mg12/16, 06/11, 2.5mg 12/18 2.5mg Mon,Wed,fri and 5mg all [...] completed by : KHADAR Vargas RN - 11/24/2016 11:12 CDT KHADAR BANDA RN - 11/24/2016 11:12 CDT KHADAR BANDA RN - 11/24/2016 11:12 CDT KHADAR BANDA RN - 11/24/2016 11:12 CDT Date : 06/17/2016 VBA PROGRAMMER 06/24/2016 VBA PROGRAMMER 07/07/2016 VBA PROGRAMMER 07/28/2016 VBA PROGRAMMER Location of INR sample : Other: [facility] Other: [facility] Lab Lab Type of Sample [...] is having tooth pulled 08/31/[address] [facility] Oral Surgery will need INR checked that am scheduled.letter faxed to [facility] oral surgery to see what INR needs leon Recommend Recheck : One week Other: 07/07/16 Three weeks Two weeks Plan completed by : KHADAR VIRK RN - 11/24/2016 11:12 CDT KHADAR BANDA RN - 11/24/2016 11:12 CDT KHADAR BANDA RN - 11/24/2016 11:12 CDT KHADAR BANDA RN - 11/24/2016 11:12 CDT Date : 08/11/2016 VBA PROGRAMMER 08/31/2016 VBA PROGRAMMER 09/29/2016 CDT 10/27/2016 CDT Location of INR [...] completed by : KHADAR Jackson RN - 11/24/2016 11:12 CDT KHADAR BANDA RN - 11/24/2016 11:12 CDT KHADAR BADNA RN - 11/24/2016 11:12 CDT KHADAR BANDA RN - 11/24/2016 11:12 CDT Date : 11/24/2016 CDT Location of INR sample : Lab Type of Sample : Venous INR Result : 2.2 Warfarin Dose : 5mg Sun/Tues/Thurs, 2.5mg all other days Total Weekly Warfarin Dose : 25 Comment : called to Mom/Fabiola/states has appt on 11/01 in [place]/may need surgery on non healing arm fx/surgery tentatively scheduled for 12/21/ calendar to check Synthesis for pre-op instructions and schedule next INR Recommend Recheck : Plan completed by : KHADAR MAE RN - 11/24/2016 11:12 CDT Anticoagulation Assessment / History Visit : Phone management Plan of Care Date : 01/29/2008 CDT Primary Physician Anticoagulation : TASHA HENRIQUEZ MD 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 - 11/24/2016 9:52 AM CDT Results Notification From: KHADAR BANDA RN ( Anticoagulation Nurse) To: Anticoagulation Nurse; Sent: 11/24/2016 09:52:17 CDT Show up: 11/24/2016 09:53:00 CDT Subject: Results Notification Results: Date Result Name Value Ref Range 11/24/2016 08:00 PT 24.1 second(s) (8.8 - 11.9) 11/24/2016 08:00 INR 2.2 (0.9 - 1.2) Source: [facility] POWERCHART Document Id: [id number] documented in this encounter Plan of Treatment Not on filedocumented as of this encounter Procedures Procedure Name Priority Date/Time Associated Comments Diagnosis PROTHROMBIN TIME Routine 11/24/2016 8:00 AM Resul ts for this (PT), P CDT procedure are i n the results section. documented in this encounter Results (ABNORMAL) PT (Prothrombin Time) with INR (11/24/2016 8:00 AM CDT) [facility] Method Time Signature Prothrombin 24.1 (H) 8.8 - 11.9 POWERCHART Time, P SECONDS INR 2.2 (H) 0.9 - 1.2 POWERCHART Comment: Recommended INR for prophylaxis/treatmen t of Venous Thrombosis, Pulmonary Embolism, Myocardial Infarction, and Embolism from Atrial Fibrillation is 2.0- 3.0 (Standard Therapy) Recommended INR for Mechanical Heart Tejal ves and recurrent Systemic Embolism is 2.5-3.5 (Intensive Therapy) Specimen (Source) Anatomical Collection Method Collection Time Re ceived Time Location / / Volume Laterality Blood 11/24/2016 8:00 AM CDT Tasha Henriquez M.D. LAB BLOOD ADD-ON Performing Organization Address City/State/ZIP Code Phon e Number POWERCHART documented in this encounter Visit Diagnoses Not on filedocumented in this encounter
--- OUTSIDE RECORDS SUMMARY | 2022-04-25 15:59 | XMS_ITS | Encounter Summary ---
:[address] [facility] Address [address] [place] [id number] Care Team Providers Name Role Phone Tasha Henriquez M.D. Primary Care Provider Encounter Details Date Type Department Care Team Description 04/13/2017 Hospital Encounter HX [facility] Marsha Henriquez M.D. [address] [place], [place] [address] (Wo rk) Social History [...] - - Height 146 cm (4' 9.48) 04/13/2017 7:34 AM CDT Body Mass Index - - [...] Notes Miscellaneous - Khadar Banda R.N. - 04/13/2017 10:48 AM CDT Anticoagulation Patient Intake Anticoagulation Patient Intake Entered On: 04/13/2017 10:50 CDT Performed On: 04/13/2017 10:48 CDT by KHADAR BANDA RN Plan INR goal range : 2.0 - 3.0 Duration of Therapy : Lifelong Tablet Size : 2 mg, 5 mg KHADAR BANDA RN - 04/13/2017 10:48 CDT Anticoagulation Management Plan Grid Date : [...] in 4wks will checkin 5wks Called to Mom/Fabioal, no changes called to Mom/Fabiola, no changes/HOLD tonight then resume as before Recommend Recheck : One month Other: 5 weeks Other: 5 weeks Two weeks Plan completed by : KHADAR Manning RN - 04/13/2017 10:48 CDT KHADAR BANDA RN - 04/13/2017 10:48 T KHADAR BANDA RN - 04/13/2017 10:48 KHADAR HILL RN - 04/13/2017 10:48 CDT Date : 12/26/2013 CDT 01/30/2014 CDT [...] a long time, no bleeding [place] [facility]call if changes Recommend Recheck : Other: 5 weeks Other: 5 weeks Other: 03/10/2014 Other: 03/20/14 Plan completed by : KHADAR Cho RN - 04/13/2017 10:48 KHADAR HILL RN - 04/13/2017 10:48 T KHADAR BANDA RN - 04/13/2017 10:48 T KHADAR BANDA RN - 04/13/2017 10:48 CDT Date : 03/20/2014 CDT 03/27/2014 CDT [...] lackey LM /pharmacy KHADAR BANDA RN - 04/13/2017 10:48 CDT KHADAR BANDA RN - 04/13/2017 10:48 CDT KHADAR BANDA RN - 04/13/2017 10:48 CDT KHADAR BANDA RN - 04/13/2017 10:48 CDT Date : 04/17/2014 CDT 04/24/2014 CDT 05/01/2014 NIGHT CUSTODIAN 05/15/2014 NIGHT CUSTODIAN Location of INR sample : Lab Lab [...] will trynoted dose called to mom Fabiola [phone] called to Fabiola/no changes Called to mother/Fabiola, not awareof any changes Recommend Recheck : One week One week Two weeks Two weeks Plan completed by : MARIA GUADALUPE FITCH OZZY KHADAR CAICEDO RN - 04/13/2017 10:48 CDT KHADAR BANDA RN - 04/13/2017 10:48 CDT KHADAR BANDA RN - 04/13/2017 10:48 CDT KHADAR BANDA RN - 04/13/2017 10:48 CDT Date : 06/03/2014 NIGHT CUSTODIAN 06/05/2014 NIGHT CUSTODIAN 06/10/2014 NIGHT CUSTODIAN 06/11/2014 NIGHT CUSTODIAN Location of INR sample : Lab Type [...] Called to mother/Fabiola. Per message from Dr. Henrqiuez, stop coumadin 5days prior to surgery (06/06) with no bridging. Called motherFabiola. Hue will be staying in [place] 2wks post-surgery & have INR drawn there. [...] lovenox tomorrow AM as ordered. INR in [place] for next several weeks as pt will be recovering there. Recommend Recheck : Other: depending on Dr. Henriquez's preop. Other: 06/18 Other: 06/13/14 Plan completed by : KHADAR SANDERS RN - 04/13/2017 10:48 CDT KHADAR BANDA RN - 04/13/2017 10:48 CDT KHADAR BANDA RN - 04/13/2017 10:48 CDT KHADAR BANDA RN - 04/13/2017 10:48 CDT Date : 06/14/2014 NIGHT CUSTODIAN 06/14/2014 NIGHT CUSTODIAN 06/16/2014 NIGHT CUSTODIAN 06/23/2014 NIGHT CUSTODIAN Location of INR sample : Clinic Lab [...] : 20 20 Comment : [facility] called with INR result from 06/13, reported they left a message with Dr. Henriquez and hadn't heard back, spoke with mother, Fabiola, and gave doses, continue Lovenox and repeat INR 06/16, message left with INR clinic in to contact [facility] Please contact [facility] lab on 06/16 for result and may call Fabiola at [phone] with instructions call to Fabiola/will stop Lovenox injections and take noted dose/pt has an appt here in [place] 06/23 so will do lab appt here that day Called to Fabiola/ Hue will be back at [facility] by next draw. will have done on . no changes to meds/diet. Recommend Recheck : Two days One week Two weeks Plan completed by : KHADAR Mattson LM RN - 04/13/2017 10:48 CDT KHADAR BANDA RN - 04/13/2017 10:48 CDT KHADAR BANDA RN - 04/13/2017 10:48 CDT KHADAR BANDA RN - 04/13/2017 10:48 CDT Date : 07/10/2014 NIGHT CUSTODIAN 07/17/2014 NIGHT CUSTODIAN 07/31/2014 NIGHT CUSTODIAN 09/11/2014 CDT Location of INR sample : [...] weeks Two weeks Plan completed by : ly JK ly KHADAR GUSTAFSON RN - 04/13/2017 10:48 CDT KHADAR BANDA RN - 04/13/2017 10:48 CDT KHADAR BANDA RN - 04/13/2017 10:48 CDT KHADAR BANDA RN - 04/13/2017 10:48 CDT Date : 09/12/2014 CDT 09/25/2014 CDT [...] GUADALUPE ly JM KHADAR Mae RN - 04/13/2017 10:48 CDT KHADAR BANDA RN - 04/13/2017 10:48 CDT KHADAR BANDA RN - 04/13/2017 10:48 CDT KHADAR BANDA RN - 04/13/2017 10:48 CDT Date : 10/23/2014 CDT 11/13/2014 CDT [...] Quintin/Pharmacy and called Mom with orders Per MomMegane, no changes, has been drinking some Kiwi Juice, no bleeding/consult with Quintin/Pharmacy Called to mom /Fabiola, no changes, rev'd w/BCarlson/Pharmacy Recommend Recheck : Three weeks One week One week One week Plan completed by : KHADAR Toro RN - 04/13/2017 10:48 CDT KHADAR BANDA RN - 04/13/2017 10:48 CDT KHADAR BANDA RN - 04/13/2017 10:48 CDT KHADAR BANDA RN - 04/13/2017 10:48 CDT Date : 12/04/2014 CDT 12/18/2014 CDT [...] completed by : KHADAR Vargas RN - 04/13/2017 10:48 CDT KHADAR BANDA RN - 04/13/2017 10:48 CDT KHADAR BANDA RN - 04/13/2017 10:48 CDT KHADAR BANDA RN - 04/13/2017 10:48 CDT Date : 02/05/2015 CDT 02/26/2015 CDT [...] completed by : KHADAR SLOAN RN - 04/13/2017 10:48 CDT KHADAR BANDA RN - 04/13/2017 10:48 CDT KHADAR BANDA RN - 04/13/2017 10:48 CDT KHADAR BANDA RN - 04/13/2017 10:48 CDT Date : 04/09/2015 CDT 05/07/2015 NIGHT CUSTODIAN 06/04/2015 NIGHT CUSTODIAN 07/02/2015 NIGHT CUSTODIAN Location of INR sample : Lab Lab [...] completed by : KHADAR Dowell RN - 04/13/2017 10:48 CDT KHADAR BANDA RN - 04/13/2017 10:48 CDT KHADAR BANDA RN - 04/13/2017 10:48 CDT KHADAR BANDA RN - 04/13/2017 10:48 CDT Date : 08/06/2015 NIGHT CUSTODIAN 09/17/2015 CDT 10/29/2015 CDT 11/12/2015 CDT Location [...] weeks One week Plan completed by : CarliK JM ly JM KHADAR BANDA RN - 04/13/2017 10:48 CDT KHADAR BANDA RN - 04/13/2017 10:48 CDT KHADAR BANDA RN - 04/13/2017 10:48 CDT KHADAR BANDA RN - 04/13/2017 10:48 CDT Date : 11/19/2015 CDT 12/03/2015 CDT [...] Plan completed by : darya JM ly JM KHADAR BANDA RN - 04/13/2017 10:48 CDT KHADAR BANDA RN - 04/13/2017 10:48 CDT KHADAR BANDA RN - 04/13/2017 10:48 CDT KHADAR BANDA RN - 04/13/2017 10:48 CDT Date : 02/19/2016 CDT 02/20/2016 CDT [...] Eliseo Quezada, PharmD. KHADAR BANDA RN - 04/13/2017 10:48 CDT KHADAR BANDA RN - 04/13/2017 10:48 CDT KHADAR BANDA RN - 04/13/2017 10:48 CDT KHADAR BANDA RN - 04/13/2017 10:48 CDT Date : 02/23/2016 CDT 02/24/2016 CDT [...] Eliseo Quezada, PharmD. KHADAR BANDA RN - 04/13/2017 10:48 CDT KHADAR BANDA RN - 04/13/2017 10:48 CDT KHADAR BANDA RN - 04/13/2017 10:48 CDT KHADAR BANDA RN - 04/13/2017 10:48 CDT Date : 02/27/2016 CDT 03/01/2016 CDT 03/04/2016 CDT 03/07/2016 CDT Location of INR sample : [facility] Lab [facility] Type of Sample : Venous Capillary/POC Venous Capillary/POC INR Result : 2.07 2.5 2.2 2.4 Warfarin Dose : 2 mg daily 2mg daily 2.5mg 03/04-03/06 2.5mg Mon,Mon,Mon Total Weekly Warfarin Dose : 14 15.5 Comment : Pt being discharged on Bactrim. 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 Pt mother states plan to return to [facility] on 03/06. next f/u will be in [facility]. 2mg TuWTh Rev'd with Jelly/Pharmacist,called to [...] : KHADAR Diana RN, RN RN - 04/13/2017 10:48 CDT KHADAR BANDA RN - 04/13/2017 10:48 CDT KHADAR BANDA RN - 04/13/2017 10:48 CDT KHADAR BANDA RN - 04/13/2017 10:48 CDT Date : 03/11/2016 CDT 03/16/2016 CDT [...] will be staying with sister in [facility] next week she will have INR drawn in again called to Fabiola/pt to do next INR at on ./no changes called to Fabiola/no changes called to Fabiola/Mom,no changes/missed doses Recommend Recheck : Other: 03/16/16 Other: 03/31/16(2 weeks) One month Two weeks Plan completed by : JENIFER PRECIADO ly NB KHADAR BANDA RN - 04/13/2017 10:48 CDT KHADAR BANDA RN - 04/13/2017 10:48 CDT KHADAR BANDA RN - 04/13/2017 10:48 CDT KHADAR BANDA RN - 04/13/2017 10:48 CDT Date : 05/11/2016 NIGHT CUSTODIAN 05/12/2016 NIGHT CUSTODIAN 05/17/2016 NIGHT CUSTODIAN 05/24/2016 NIGHT CUSTODIAN Location of INR sample : Other: Drawn in [place] Other: [place] Other: [place] Type of Sample : INR Result : 1.6 2.4 1.8 Warfarin Dose : 2.5mg daily 2.5mg daily 5mg 05/24 then 2.5mg daily Total Weekly Warfarin Dose : 17.5 Comment : Per Mom/Fabiola, pt disch from [facility] today, fell & fx left humerus 05/08, surg 05/09, INR 1.3 on 05/08, 1.5 on 05/09, 1.6 on 05/10 & 1.4 05/11, has had 2.5mg daily since 05/09, going to for INR 05/12 & result to be faxed to us, not on Lovenox rev'd with JimPharmacist,called to mom/Faboila,she will have it done in [place] again Tues Called to Mom/Fabiola, no changes Called to Mom/Fabiola, no missed doses, took pain pill last night, has not taken any for a while, no other changes Recommend Recheck : Other: 05/12/16 Other: 05/17/16 One week One week Plan completed by : KHADAR MAYORGA RN - 04/13/2017 10:48 CDT KHADAR BANDA RN - 04/13/2017 10:48 CDT KHADAR BANDA RN - 04/13/2017 10:48 CDT KHADAR BANDA RN - 04/13/2017 10:48 CDT Date : 06/01/2016 NIGHT CUSTODIAN 06/06/2016 NIGHT CUSTODIAN 06/10/2016 NIGHT CUSTODIAN 06/13/2016 NIGHT CUSTODIAN Location of INR sample : Other: [place] Other: [facility] Other: [facility] Type of Sample : INR Result : 1.6 1.4 1.6 2.2 Warfarin Dose : 5mg 12/8, 2.5mg 12/, 12/, 12/11 5mg 12/12 & 12/13,2.5mg 12/14 & 12/15 5mg12/16, 12/, 2.5mg 12/18 2.5mg Mon,Wed,fri and 5mg all [...] completed by : KHADAR Vargas RN - 04/13/2017 10:48 CDT KHADAR BANDA RN - 04/13/2017 10:48 CDT KHADAR BANDA RN - 04/13/2017 10:48 CDT KHADAR BANDA RN - 04/13/2017 10:48 CDT Date : 06/17/2016 NIGHT CUSTODIAN 06/24/2016 NIGHT CUSTODIAN 07/07/2016 NIGHT CUSTODIAN 07/28/2016 NIGHT CUSTODIAN Location of INR sample : Other: [facility] CF Other: [facility] Lab Lab Type of Sample [...] changes,pt is having tooth pulled 08/31/16 at [facility] Oral Surgery will need INR checked that am scheduled.letter faxed to [facility] oral surgery to see what INR needs leon Recommend Recheck : One week Other: 07/07/16 Three weeks Two weeks Plan completed by : KHADAR VIRK RN - 04/13/2017 10:48 CDT KHADAR BANDA RN - 04/13/2017 10:48 CDT KHADAR BANDA RN - 04/13/2017 10:48 CDT KHADAR BANDA RN - 04/13/2017 10:48 CDT Date : 08/11/2016 NIGHT CUSTODIAN 08/31/2016 NIGHT CUSTODIAN 09/29/2016 CDT 10/27/2016 CDT Location of INR [...] completed by : KHADAR Jackson RN - 04/13/2017 10:48 CDT KHADAR BANDA RN - 04/13/2017 10:48 CDT KHADAR BANDA RN - 04/13/2017 10:48 CDT KHADAR BANDA RN - 04/13/2017 10:48 CDT Date : 11/24/2016 CDT 12/05/2016 CDT [...] to Mom/Fabiola/states has appt on 11/01 in [place]/may need surgery on non healing arm fx/surgery tentatively scheduled for 12/21/ calendar to check Synthesis for pre-op instructions and schedule next INR Per David/Fabiola, arm is healing, no surg at this time, may have in Feb, she will let us know Called to Mom/Fabiola, no changes Called to Mom/Fabiola/no changes Recommend Recheck : Other: 12/22/16 One month One month Plan completed by : KHADAR Gale RN - 04/13/2017 10:48 CDT KHADAR BANDA RN - 04/13/2017 10:48 CDT KHADAR BANDA RN - 04/13/2017 10:48 CDT KHADAR BANDA RN - 04/13/2017 10:48 CDT Date : 02/16/2017 CDT 03/16/2017 CDT [...] Tylenol for knee pain Called to Mom/Fabiola/states Swann has not been taking Tylenol Called to Fabiola/ no changes or bleeding with pt Recommend Recheck : One month One week One week Two weeks Plan completed by : KHADAR Rosas RN - 04/13/2017 10:48 CDT KHADAR BANDA RN - 04/13/2017 10:48 CDT KHADAR BANDA RN - 04/13/2017 10:48 CDT KHADAR BANDA RN - 04/13/2017 10:48 CDT Date : 04/13/2017 CDT Location of INR sample : Lab Type of Sample : Venous INR Result : 4.5 Warfarin Dose : HOLD 04/13, 04/14, then resume 5mg Sun/Tues, 2.5mg all other days Total Weekly Warfarin Dose : 22.5 Comment : called to Mom/Fabiola, no changes except still takes some Tylenol for knee pain Recommend Recheck : One week Plan completed by : KHADAR Mae RN - 04/13/2017 10:48 CDT Anticoagulation Assessment / History Visit : Phone management Plan of Care Date : 01/29/2008 CDT Primary Physician Anticoagulation : TASHA HENRIQUEZ MD 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 - 04/13/2017 9:59 AM CDT Results Notification From: KHADAR BANDA RN ( Anticoagulation Nurse) To: Anticoagulation Nurse; Sent: 04/13/2017 09:59:08 CDT Show up: 04/13/2017 10:00:00 CDT Subject: Results Notification Results: Date Result Name Value Ref Range 04/13/2017 08:00 PT 52.6 second(s) (8.8 - 11.9) 04/13/2017 08:00 INR 4.5 (0.9 - 1.2) [facility] Document Id: [id number] documented in this encounter Plan of Treatment Not on filedocumented as of this encounter Visit Diagnoses Not on filedocumented in this encounter Care Teams Safety Sitter Relationship Specialty Start Date End Date Tasha Henriquez M.D. PCP - General 12/08/16 05/23/18 [email or web address] EFRAÍN [place] [id number] documented as of this encounter
--- OUTSIDE RECORDS SUMMARY | 2022-04-25 16:00 | XMS_ITS | Encounter Summary ---
:1975 Author Organization [facility] Address [address] [place] [address] Care Team Providers Name Role Phone Unavailable Primary Care Provider Unavailable Encounter Details Date Type Department Care Team Description 05/12/2016 Hospital Encounter HX [facility] Marsha Garibay M.D. 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) [facility] Method Time Signature Prothrombin 16.9 (H) 8.8 - 11.9 POWERCHART Time, P SECONDS INR 1.6 (H) 0.9 - 1.2 POWERCHART Comment: Recommended INR for prophylaxis/treatme nt of Venous Thrombosis, Pulmonary Embolism, Myocardial Infarction, and Embolism from Atrial Fibrillation is 2.0- 3.0 (Standard Therapy) Recommended INR for Mechanical Heart Tejal ves and recurrent Systemic Embolism is 2.5-3.5 (Intensive Therapy) Specimen (Source) Anatomical Collection Method Collection Time Re ceived Time Location / / Volume Laterality Blood 05/12/2016 9: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 LAB BLOOD ADD-ON Performing Organization Address City/State/ZIP Code Phon e Number POWERCHART documented in this encounter Visit Diagnoses Not on filedocumented in this encounter
--- OUTSIDE RECORDS SUMMARY | 2022-04-25 16:00 | XMS_ITS | Encounter Summary ---
:1975 Author Organization [facility] Address [address] [place] [id number] Care Team Providers Name Role Phone Unavailable Primary Care Provider Unavailable Encounter Details Date Type Department Care Team Description 07/01/2016 Hospital Encounter HX [facility] Stoney Lance M.D. [address] [place], [place] [address] (Wo rk) Social History Tobacco Use Types [...] - - Height 146 cm (4' 9.48) 07/01/2016 8:59 AM LINE O SCRIBE OPERATOR Body Mass Index - - documented [...] Procedure Name Priority Date/Time Associated Comments Diagnosis LIPID PANEL, S Routine 07/01/2016 9:05 AM Results for this LINE O SCRIBE 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 THYROID-STIMULATING Routine 07/01/2016 9:05 AM Re sults for this HORMONE-SENSITIVE LINE O SCRIBE OPERATOR procedure are in (S-TSH) the results section. HEMOGLOBIN A1C, B Routine 07/01/2016 9:05 AM Resu lts for this LINE O SCRIBE 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 GLUCOSE, FASTING, S/P Routine 07/01/2016 9:05 AM Results for this LINE O SCRIBE 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 COMPREHENSIVE Routine 07/01/2016 9:05 AM Results for this METABOLIC PANEL, S/P LINE O SCRIBE OPERATOR procedu re are in the results section. documented in this encounter Results (ABNORMAL) Thyroid-Stimulating Hormone-Sensitive (s-TSH) (07/01/2016 9:05 AM LINE O SCRIBE OPERATOR) P athologist Signature TSH 6.13 (H) 0.27 - POWERCHART (Thyrotropin) 4.20 MIUL Comment: Biotin has been identified by the isi borrego as a potential interfering substance. Higher concentrations of biotin may be found in multivitamins, hair/nail supplements, and workout supplements. If the result does not match clinical observat ions, repeat testing after patient refrains from the use of supplements for at least 12 hours. Specimen (Source) Anatomical Collection Method Collection Time Re ceived Time Location / / Volume Laterality Blood 07/01/2016 9:05 AM LINE O SCRIBE OPERATOR Marie Lance M.D. LAB BLOOD ADD-ON Performing Organization Address City/State/ZIP Code Phon e Number POWERCHART (ABNORMAL) CMP (Comprehensive Metabolic Panel) (07/01/2016 9:05 AM LINE O SCRIBE OPERATOR) Patholo gist Method Time Signature Alanine 14 7 - 45 UL POWERCHART Amniotransferase, LD Albumin, S 3.5 3.5 - 5.0 POWERCHART GDL Alkaline 74 37 - 98 POWERCHART Phosphatase, S UL Aspartate 17 8 - 43 UL POWERCHART Aminotransferase (AST), S Sodium, S 137 135 - 145 POWERCHART MMOLL Potassium, S 4.0 3.5 - 5.1 POWERCHART MMOLL Chloride, S 100 98 - 107 POWERCHART MMOLL CO2 Total 26 22 - 29 POWERCHART MMOLL BUN (Blood Urea 14 6 - 21 POWERCHART Nitrogen), S MGDL Creatinine 0.95 0.59 - POWERCHART 1.04 MGDL Calcium, Total, S 8.4 (L) 8.6 - POWERCHART 10.3 MGDL Anion Gap 11 10 - 20 POWERCHART MMOLL HXeGFR (MDRD) >60 >=60 POWERCHART [id number] 2 eGFR Black/ >60 >=60 POWERCHART Ghanaian [id number] 2 Bilirubin, Total, S 0.3 <=1.2 POWERCHART MGDL Total Protein, S 7.0 6.3 - 7.9 POWERCHART GDL Glucose 94 70 - 139 POWERCHART MGDL Specimen (Source) Anatomical Collection Method Collection Time Re ceived Time Location / / Volume Laterality Blood 07/01/2016 9:05 AM LINE O SCRIBE OPERATOR Marie Lance M.D. LAB BLOOD ADD-ON Performing Organization Address City/State/ZIP Code Phon e Number POWERCHART Hemoglobin A1c (07/01/2016 9:05 AM LINE O SCRIBE OPERATOR) P athologist Signature Hemoglobin A1c, 4.8 <=5.6 A1C POWERCHART B Specimen (Source) Anatomical Collection Method Collection Time Re ceived Time Location / / Volume Laterality Blood 07/01/2016 9:05 AM LINE O SCRIBE OPERATOR Marie Lance M.D. LAB BLOOD ADD-ON Performing Organization Address City/State/ZIP Code Phon e Number POWERCHART Glucose, Fasting (07/01/2016 9:05 AM LINE O SCRIBE OPERATOR) P athologist Signature Glucose, 94 70 - 99 POWERCHART Fasting, S MGDL Specimen (Source) Anatomical Collection Method Collection Time Re ceived Time Location / / Volume Laterality Blood 07/01/2016 9:05 AM LINE O SCRIBE OPERATOR Marie Lance M.D. LAB BLOOD NON ADD-ON Performing Organization Address City/State/ZIP Code Phon e Number POWERCHART (ABNORMAL) Lipid Panel (07/01/2016 9:05 AM LINE O SCRIBE OPERATOR) P athologist Signature Cholesterol, 187 <=199 MGDL POWERCHART Total Comment: 2014 National Lipid Association recommen dations for Total Cholesterol in adults ages 18 and up: Desirable <200 mg/dL Borderline high 200-239 mg/dL High 240 mg/dL 2014 National Lipid Association recommen dations for Total Cholesterol in children ages 2 to 17. Acceptable <170 mg/dL Borderline High 170-199 mg/dL High 200 mg/dL HX HDL 49 (L) >=50 MGDL POWERCHART Comment: 2014 National Lipid Association recommen dations for HDL-C in adults ages 18 and up: Low <40 mg/dL (Men) Low <50 mg/dL (Women) 2014 National Lipid Association recommen dations for HDL-C in children ages 2 to 17. Low <40 mg/dL Borderline Low 40-45 mg/dL Acceptable >45 mg/dL Triglycerides 127 <=149 MGDL POWERCHART Comment: 2014 National Lipid Association recommen dations for Triglycerides in adults ages 18 and up: Normal <150 mg/dL Borderline High 150-199 mg/dL High 200-499 mg/dL Very High 500 mg/dL 2014 National Lipid Association recommen dations for Triglycerides in children ages 2 to 9. Acceptable <75 mg/dL Borderline High 75-99 mg/dL High 100 mg/dL 2014 National Lipid Association recommen dations for Triglycerides in children ages 10 to 17. Acceptable <90 mg/dL Borderline High 90-129 mg/dL High 130 mg/dL Trigs >400mg/dL: Triglycerides >400 mg/ dL. Calculated LDL cholesterol is not valid. Non-HDL cholesterol may be used for risk assessment when triglycerides are >400mg/dL. Calculated LDL 113 <=129 MGDL POWERCHART Comment: 2013 National Lipid Association recommen dations for LDL-C in adults ages 18 and up: Desirable <100 mg/dL Above desirable 100-129 mg/dL Borderline high 130-159 mg/dL High 160-189 mg/dL Very High 190 mg/dL 2014 National Lipid Association recommen dations for LDL-C in children ages 2 to 17. Acceptable <110 mg/dL Borderline High 110-129mg/dL High 130 mg/dL LDL-C >190mg/dL: The markedly elevated LDL level is suggestive of a genetic condition such as familial hypercholesterolemia(FH) or familial defective apolipoprotein B-100 (FDB). Molecular genetic t esting for FH and FDB is available [facility]: FH/ADH Genetic Reflex Ha[place] el (test ADHP). Acquired (non-genetic) causes of markedly increased LDL cholesterol include cholestatic liver disease due to the presence of LpX. If a genetic form of hypercholesterolemia is suspected, family studies including biochemical testing fo r lipids (total cholesterol,triglycerides, LDL cholesterol and HDL cholesterol) are recommended. ??Please contact the laboratory at or the on-line test catalog at [facility] for information about how to order these cipriano ts or to speak with a genetic counselor. Further interpretation would require clinical information. Total Cholesterol/HDL Ratio 4 PO WERCHART Specimen (Source) Anatomical Collection Method Collection Time Re ceived Time Location / / Volume Laterality Blood 07/01/2016 9:05 AM LINE O SCRIBE OPERATOR Marie Lance M.D. LAB BLOOD ADD-ON Performing Organization Address City/State/ZIP Code Phon e Number POWERCHART documented in this encounter Visit Diagnoses Not on filedocumented in this encounter
--- OUTSIDE RECORDS SUMMARY | 2022-04-25 16:00 | XMS_ITS | Encounter Summary ---
:1975 Author Organization [facility] Address [address] [place] [id number] Care Team Providers Name Role Phone Unavailable Primary Care Provider Unavailable Encounter Details Date Type Department Care Team Description 05/08/2016 Hospital Encounter HX [facility] ED Mercedes Hoang D. O. Social History Tobacco Use Types Packs/Day Years Used Date Smoking Tobacco: Never Assessed Sex Assigned at Date Recorded Not on file documented as of this encounter Last Filed Vital Signs Vital Sign Reading Time Taken Comments Blood Pressure 95/57 05/08/2016 9:30 PM PARTS CATALOGER Pulse 69 05/08/2016 5:32 PM PARTS CATALOGER Temperature - - Respiratory Rate 14 05/08/2016 5:32 PM PARTS CATALOGER Oxygen Saturation - - Inhaled Oxygen Concentration - - Weight 78.5 kg (173 lb 1 oz) 05/08/2016 5:32 PM PARTS CATALOGER Height 137.2 cm (4' 6) 05/08/2016 5:32 PM PARTS CATALOGER Body Mass Index 41.73 05/08/2016 5:32 PM PARTS CATALOGER documented in this encounter Discharge Summaries Joyce Ruiz R.N. - 05/08/2016 10:20 PM CST ED Depart Summary [facility] Emergency Department Clinical Discharge Summary PERSON INFORMATION Name DORITA SHEFFIELD Age 41 Years 1975 12:00 AM Sex Female Language Bruneian PCP TASHA HENRIQUEZ MD Marital Status Single Visit Id Visit Reason Arm pain-swelling; Fall with injury Specialty Enc Type Emergency Med Service Emergency Medicine Referred by Track Group [facility] ED Discharge 05/08/2016 10:15 PM Tracking Id [id number] Checkout 05/08/2016 10:15 PM Checkin 05/08/2016 5:23 PM Acuity 3 -Urgent Dispo Type Disch/Trans ShortTerm Gen Hosp-Inpt Care Arrival 05/08/2016 5:23 PM Reg Status Complete LOS 000 04:52 Address: [address] [place] [address] [phone] Comment: PROVIDER INFORMATION Provider Role Provider Contact Time MERCEDES HOANG DO ED Provider 05/08/16 17:36 KIESHA GODOY ENTREPRENEURSHIP PROGRAM DIRECTOR Nurse 05/08/16 17:51 JOYCE RUIZ ENTREPRENEURSHIP PROGRAM DIRECTOR Nurse 05/08/16 17:51 DIAGNOSIS Fracture Humerus Closed Initial L Comment: PATIENT EDUCATION INFORMATION Instructions: Follow up: Source: [facility] [employer] Document Id: [id number] S CATALOGER Joyce Ruiz R.N. - 05/08/2016 10:20 PM CST ED Discharge Instructions [facility] [address] [place] [address]. [place] [address] Name: DORITA SHEFFIELD Date of : 1975 12:00 AM Visit Date: 05/08/2016 5:23 PM [facility] Number: [id number] Address: [address] [place] [phone] Primary Care Provider: TASHA HENRIQUEZ MD IMPORTANT: [facility] in [place] would like to thank you for allowing us to assist you with your healthcare needs. The following includes patient education materials and information regarding your injury/illness. Diagnosis: Fracture Humerus Closed Initial L Follow-Up Instructions: Your Upcoming Appointments: Date Time Location Provider 05/12/2016 08:15 [facility] Lab [facility] Lab Offsite Patient Education Materials: Consider Using Patient Online Services Patient Online [...] if you dont have one. Go to [email or web address] and click on Create Your Account. Then, follow the directions to complete the online form. Youll be asked for your [facility] number which you can find at the top of this document. ED Tests and Procedures: Order Status XR Elbow Left 2 views Ordered XR Shoulder Left 2 or more views port Ordered XR Elbow Left 3 or more views Canceled Discharge Prescriptions & Home Medications: Medication/Strength Dose Route Frequency Indications/Special Instructions/Comments/Notes warfarin (warfarin 2.5 mg oral tablet) 2.5 mg Oral once a day 2.5mg daily or as directed by the INR Clinic as of 03/31/2016 *bifidobacterium-lactobacillus (Probiotic Formula) 1 cap(s) Oral once a day warfarin (Coumadin 2 mg oral tablet) See Instructions This dosage is currently not required. acetaminophen (acetaminophen 500 mg oral tablet) 1,000 mg Oral every 6 hours as needed for Pain / Fever chlorhexidine topical (chlorhexidine 0.12% mucous membrane liquid) 0.018 gm Oral once a day (at bedtime) multivitamin (multivitamin) 1 tab Oral once a day fluoride topical (Prevident 5000 Plus topical paste) 1 luther Topical two times a day * You have let us know that you are not taking this medication as listed. Please talk with your primary care provider or the health care provider who prescribed the medication as soon as possible. Comment: Attention: If you have any medications at home that are not on this list, DO NOT take them until youcontact your provider for clarification. Give a copy of your medication list to your primary care provider. Update your medication list any time medications or doses are changed and carry your medication list at all times in case of emergency. IMPORTANT: We examined and treated you today on an emergency basis only. This was not a substitute for, or an effort to provide, complete medical care. In most cases, you must let your doctor check youagain. Tell your doctor about any new or lasting problems. We cannot recognize and treat all injuries or illnesses in one Emergency Department visit. If you had special tests, such as EKG's or X- rays, we will review them again within 24 hours. We will call you if there are any new suggestions. Please follow the instructions above carefully. If you are being transferred to another facility your followup plan of care will be determined by the receiving facility. If you are a patient that is being discharged from the Emergency Department after receiving narcotics or other medications that may impair your judgment you may be a risk to yourself or others if you operate a motor vehicle. We recommend that you arrange a ride home with a responsible constitution party. NETTIE Cha CAROLYN MARY , or responsible constitution party have received this information and my questions have been answered. I have discussed any challenges I see with this plan with the nurse or physician. Patient Signature or Responsible Republican/Relationship Date Time Provider Signature Date Time IMPORTANT: We examined and treated you today on an emergency basis only. This was not a substitute for, or an effort to provide, complete medical care. In most cases, you must let your doctor check youagain. Tell your doctor about any new or lasting problems. We cannot recognize and treat all injuries or illnesses in one Emergency Department visit. If you had special tests, such as EKG's or X- rays, we will review them again within 24 hours. We will call you if there are any new suggestions. Please follow the instructions above carefully. If you are being transferred to another facility your followup plan of care will be determined by the receiving facility. If you are a patient that is being discharged from the Emergency Department after receiving narcotics or other medications that may impair your judgment you may be a risk to yourself or others if you operate a motor vehicle. We recommend that you arrange a ride home with a responsible constitution party. NETTIE Cha CAROLYN MARY , or responsible constitution party have received this information and my questions have been answered. I have discussed any challenges I see with this plan with the nurse or physician. Patient Signature or Responsible Republican/Relationship Date Time Provider Signature Date Time Source: [facility] [employer] Document Id: [id number] S CATALOGER documented in this encounter Medications at Time [...] 30 tab(s) documented as of this encounter ED Notes Joyce Ruiz R.N. - 05/08/2016 10:18 PM CST ED Disposition Summary ED Disposition Summary Entered On: 05/08/2016 22:19 PARTS CATALOGER Performed On: 05/08/2016 22:18 PARTS CATALOGER by JOYCE RUIZ ENTREPRENEURSHIP PROGRAM DIRECTOR Disposition Summary Present in Room During Exam/Procedure : EMS Mode of Discharge : Stretcher Transportation : Ground ambulance Printed Discharge Instructions Given to Patient : No Reason Discharge Instructions Not Given : Transferred to [facility] ED. Patient Status at Discharge from ED : Improved JOYCE RUIZ RN - 05/08/2016 22:18 PARTS CATALOGER Source: [facility] [employer] Document Id: [id number] PARTS CATALOGER!8 S CATALOGER Joyce Ruiz R.N. - 05/08/2016 6:32 PM CST ED Pain Assessment ED Pain Assessment Entered On: 05/08/2016 18:32 PARTS CATALOGER Performed On: 05/08/2016 18:32 PARTS CATALOGER by JOYCE RUIZ RN Pain Assessment Pain Symptoms : Yes JOYCE RUIZ RN - 05/08/2016 18:32 PARTS CATALOGER Pain Scale Pain Scale Verbal 0-10 : Open JOYCE RUIZ RN - 05/08/2016 18:32 PARTS CATALOGER Pain Pain Assessment Grid Pain 1 Location : Upper arm Intensity : 10 JOYCE RUIZ RN - 05/08/2016 18:32 PARTS CATALOGER Source: [employer] Document Id: [id number] PARTS CATALOGER!10 S CATALOGER Mercedes Hoang DMichaelOMichael - 05/08/2016 5:51 PM CST Arm Injury-Pain *ED Patient: DORITA SHEFFIELD Age: 41 years Sex: Female : 1975 Author: MERCEDES HOANG DO Attachments: None Associated Diagnosis: Fracture Humerus Closed Initial L Basic Information Additional information: Chief Complaint from Nursing Triage Note : Chief Complaint Description 05/08/2016 17:25 PARTS CATALOGER Chief Complaint Description Ground level fall approximately 1600 today. Trippedover grocery bag and landed on left arm. Patient states nothing else on her body hurts. Received fentanyl 150 mcg per medics. Left arm splinted. CWMS intact. . History of Present Illness The patient presents with left, arm injury, arm pain, arm swelling. The onset was 4pm today. The course/duration of symptoms is constant. Type of injury: fall. The location where the incident occurred was at home and Pt states she was in her bedroom when her foot got caught on a target bag and she fell landing on her buttocks. She denies any head injury. She thinks she may have reached out to break her fall.. Location: Left elbow. Radiating pain: none. The character of symptoms is unable to describe. The degree of pain is 10 /10. . The degree of swelling is moderate. There are exacerbating factors including activity, movement and palpation. There are relieving factors including immobilization, splinting and Fentanyl 100mcg from EMS. The patient's dominant hand is the right hand. Prior episodes: none. Therapy today: emergency medical services. Associated symptoms: denies tingling, denies numbness, denies head injury, denies neck pain and denies back pain. Additional history: Last po at 2pm.. Review of Systems Constitutional symptoms: No fever. Skin symptoms: No abrasions. Eye symptoms: Vision unchanged. Respiratory symptoms: No shortness of breath. Cardiovascular symptoms: No chest pain. Gastrointestinal symptoms: No abdominal pain, no nausea or no vomiting. Musculoskeletal symptoms: No back pain. Neurologic symptoms: No headache, no dizziness or no altered level of consciousness. Additional review of systems information: All other systems reviewed and otherwise negative. Health Status Allergies: Nonallergic Reactions (Selected) Severity Not Documented Bee Stings- No reactions were documented. Chloramphenicol containing compounds- No reactions were documented. Quinolone antibiotics- No reactions were documented.. Past Medical/ Family/ Social History Medical history: Active Impaired Fasting Glucose (790.21): Onset on 07/22/2010 at 35 years. Comments: - Impaired fasting glucose Mixed Hyperlipidemia (272.2): Onset on 07/22/2010 at 35 years. Comments: - Mixed hyperlipidemia Recommend lifestyle changes (diet, exercise, weight loss) Phlebitis and Thrombophlebitis of Other Deep Vessels of Lower Extremities (451.19): Onset on 06/08/2007 at 32 years. Comments: - Phlebitis and thrombophlebitis of other deep vessels of lower extremities, Trisomy 21. Surgical history: Laparoscopic cholecystectomy (SNOMED CT 12064166) performed by SUSAN HEARD MD on 06/11/2014t 39 Years. AV - Atrioventricular valve operation (SNOMED CT 351436001) on 03/29/2013 at 38 Years. Comments: 04/05/2013 10:24 - TOOTIE LOPEZ LPN Done at [facility] Colonoscopy on 12/04/2012 at 37 Years. Papanicolaou smear taken (SNOMED CT 561694421) on 07/19/2010 at 35 Years. I and D, left thigh & leg on 01/15/2000 at 25 Years.. Social history: Alcohol use: Denies, Tobacco use: Denies, Drug use: Denies, Family/social situation:Lives alone. Physical Examination Vital Signs: Vital Signs 05/08/2016 17:32 PARTS CATALOGER Temperature Core 36.6 DegC Peripheral Pulse Rate 69 /min Respiratory Rate 14 /min SpO2 89 % <LLOW Limb Alert Question No Systolic Blood Pressure 97 mmHg Diastolic Blood Pressure 71 mmHg BP Location Right upper , Measurements 05/08/2016 17:32 PARTS CATALOGER Height 137.16 cm Dosing Weight 78.50 kg Actual Weight 78.5 kg Weight Source Bed scale , SpO2 05/08/2016 17:32 PARTS CATALOGER SpO2 89 % <LLOW . General: Alert and no acute distress. Skin: Warm and dry. Head: Normocephalic and atraumatic. Neck: Supple and no tenderness. Eye: Pupils are equal, round and reactive to light and extraocular movements are intact. Ears, nose, mouth and throat: Oral mucosa moist and no pharyngeal erythema or exudate. Cardiovascular: Regular rate and rhythm. Respiratory: Lungs are clear to auscultation, respirations are non-labored and breath sounds are equal. Chest wall: No tenderness. Back: Nontender and no step-offs. Musculoskeletal: Proximal upper extremity left, elbow, humerus, tenderness, swelling, deformity and Humerus appears shortened. Good radial pulse. Left wrist and hand nontender with full ROM.. No tenderness and full passive ROM of RUE and bilateral lower extremities.. Gastrointestinal: Soft and Nontender. Neurological: No focal neurological deficit observed. Psychiatric: Cooperative and appropriate mood & affect. Medical Decision Making OrdersLaunch Orders Radiology: Shoulder XR Left 2 or more views port (Order Processing): 05/08/2016 18:08 PARTS CATALOGER, trauma, Stat, Patient Bed, Once, 05/08/2016 18:08 PARTS CATALOGER, [facility] ED, Launch Orders Nutrition Services: Diet - NPO (Order Processing): 05/08/2016 18:54 PARTS CATALOGER, Strict Pharmacy: morphine (Order Processing): 4 mg, IV Push, Once, Launch Orders Pharmacy: morphine (Order Processing): 4 mg, IV Push, Once. Humerus x-ray findings~. Radiology results:~, EXAM: Left Shoulder 2vw. IMPRESSION: Two-view radiograph of the left shoulder is negative for fracture or dislocation. Mild degenerative arthritis left glenohumeral and AC joints. Rohit Oliva MD [phone] 08-May-2016 19:46 EXAM: Left Shoulder 2vw. IMPRESSION: Two-view radiograph of the left shoulder is negative for fracture or dislocation. Mild degenerative arthritis left glenohumeral and AC joints. Rohit Oliva MD [phone] 08-May-2016 19:46 . Impression and Plan Diagnosis Fracture Humerus Closed Initial L (Discharge, Emergency medicine, Medical) Plan Orders: Launch Orders Pharmacy: NS Bolus (Order Processing): 250 mL, IVPB, Once 0.9% NaCl 1000 mL (Order Processing): 125 mL/hr, IV morphine (Order Processing): 2 mg, IV Push, Once Radiology: Elbow Xray Left Complete (Order Processing): 05/08/2016 17:54 PARTS CATALOGER, trauma, Stat, Patient Bed, Once, 05/08/2016 17:54 PARTS CATALOGER, [facility] ED, Launch Orders Pharmacy: Zofran (Order Processing): 4 mg, IV Push, Once. Pt was seen and examined. Clinically, pt appeared to have a distal humerus fracture and she was given morphine and zofran. Pt required repeated doses of IV morphine for pain control. Xrays confirmed a displaced fracture of the distal humerus. Case was discussed with Dr. Caraballo who recommended that splint be reapplied and pt be transferred to [facility]. Case was discussed with Dr. Wayne who accepted the transfer given the need for pain control. Results and plan were discussed with the pt and pt's family. Electronically Signed By: MERCEDES HOANG DO On: 05/08/2016 11:13 PM Modified by and Electronically Signed by: MERCEDES HOANG DO On: 05/08/2016 11:13 PM Source: [facility] [employer] Document Id: [id number] S CATALOGER Joyce Ruiz R.N. 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 ) Name of Problem: Atrioventricular canal ; Onset Date:03/26/2013 ; Recorder: TOOTIE LOPEZ LPN; Confirmation: Confirmed ; Classification: Nursing ; Code: 592341881 ; Contributor System: PowerChart ; Last Updated: 04/05/2013 10:22 CDT ; Life Cycle Date: 04/05/2013 ; 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: Active ; Responsible Provider: TOOTIE LOPEZ LPN; Vocabulary: SNOMED CT ; Comments: 04/05/2013 10:22 - TOOTIE LOPEZ LPN defect, transitional Cellulitis, NOS (ICD-9-CM :682.9 ) Name of Problem: Cellulitis, NOS ; Recorder: TOOTIE LOPEZ LPN; Confirmation: Confirmed ; Classification: Nursing ; Code: 682.9 ; Contributor System: PowerChart ;Last Updated: 04/05/2013 10:27 CDT ; Life Cycle Date: 04/05/2013 ; 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: Active ; Responsible Provider: TOOTIE LOPEZ LPN; Vocabulary: ICD-9-CM ; Comments: 04/05/2013 10:27 - TOOTIE LOPEZ LPN left knee unknown date of dx 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 ) Name of Problem: Cleft leaflet of mitral valve ; Recorder: TOOTIE LOPEZ LPN; Confirmation: Confirmed ; Classification: Nursing ; Code: 746.5 ; Contributor System: PowerChart ; Last Updated: 04/05/2013 10:25 CDT ; Life Cycle Date: 04/05/2013 ; 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: Active ; Responsible Provider: TOOTIE LOPEZ LPN; Vocabulary: ICD-9-CM ; Comments: 04/05/2013 10:25 - TOOTIE LOPEZ LPN unknown date of dx 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 ; Recorder: KHADAR BANDA RN; Confirmation: Confirmed ; Classification: Nursing ; Code: 286.9 ; Contributor System: PowerChart ; Last Updated: 09/05/2013 11:40 CDT ; 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: Active ; Vocabulary: ICD-9-CM DVT, lower extremity (ICD-9-CM :453.40 ) Name of Problem: DVT, lower extremity ; Onset Date: 2006 ; Recorder: TOOTIE LOPEZ LPN; Confirmation: Confirmed ; Classification: Nursing ; Code: 453.40 ; Contributor System: [email or web address] ; Last Updated: 04/05/2013 10:26 CDT ; Life Cycle Date: 04/05/2013 ; 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: Active ; Responsible Provider: TOOTIE LOPEZ LPN; Vocabulary: ICD-9-CM Gallstone Without Obstruction (ICD-9-CM :574.20 ) Name of Problem: Gallstone Without Obstruction ; Recorder: BELLA NULL MD; Confirmation: Confirmed ; Classification: Medical ; Code: 574.20 ; Contributor System: [email or web address] ; Last Updated: 05/29/2014 11:11 PARTS CATALOGER ; 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: Active ; Responsible Provider: BELLA NULL MD; Vocabulary: ICD-9-CM Impaired Fasting Glucose (ICD-9-CM :790.21 ) Name of Problem: Impaired Fasting Glucose ; Onset Date:07/22/2010 ; Confirmation: Confirmed ; Classification: Medical ; Code: 790.21 ; Contributor System: [email or web address] ; Last Updated: 06/06/2014 9:13 PARTS CATALOGER ; 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: Active ; Vocabulary: ICD-9-CM ; Co mments: - Impaired fasting glucose Irregular Menstrual Cycle (ICD-9-CM :626.4 ) Name of Problem: Irregular Menstrual Cycle ; Onset Date: 07/28/2010 ; Confirmation: Confirmed ; Classification: Medical ; Code: 626.4 ; Contributor System: [email or web address] ; Last Updated: 09/21/2013 19:06 CDT ; 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: Active ; Vocabulary: ICD-9-CM ; Comments: - Irregular menses Mitral valve regurgitation NOS (ICD-9-CM :424.0 ) Name of Problem: Mitral valve regurgitation NOS ; Recorder: TOOTIE LOPEZ LPN; Confirmation: Confirmed ; Classification: Nursing ; Code: 424.0 ; Contributor System: [email or web address] ; Last Updated: 04/05/2013 10:25 CDT ; Life Cycle Date: 04/05/2013 ; 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: Active ; Responsible Provider: TOOTIE LOPEZ LPN; Vocabulary: ICD-9-CM ; Comments: 04/05/2013 10:25 - TOOTIE LOPEZ LPN unknown date of dx Mixed Hyperlipidemia (ICD-9-CM :272.2 ) Name of Problem: Mixed Hyperlipidemia ; Onset Date: 07/22/2010 ; Confirmation: Confirmed ; Classification: Medical ; Code: 272.2 ; Contributor System: [email or web address]; Last Updated: 06/06/2014 9:13 PARTS CATALOGER ; 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: Active ; Vocabulary: ICD-9-CM ; Comments: -Mixed hyperlipidemia Recommend lifestyle changes (diet, exercise, weight loss) Phlebitis and Thrombophlebitis of Other Deep Vessels of Lower Extremities (ICD-9-CM :451.19 ) Name of Problem: Phlebitis and Thrombophlebitis of Other Deep Vessels of Lower Extremities ; Onset Date: 06/08/2007 ; Confirmation: Confirmed ; Classification: Medical ; Code: 451.19 ; Contributor System: Merly Solomon ; Last Updated: 06/06/2014 9:13 PARTS CATALOGER ; 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: Active ; Vocabulary: ICD-9-CM ; Comments: - Phlebitis and thrombophlebitis of other deep vessels of lower extremities Primary Hypercoagulable State (ICD-9-CM :289.81 ) Name of Problem: Primary Hypercoagulable State ; Onset Date: 01/29/2008 ; Confirmation: Confirmed ; Classification: Medical ; Code: 289.81 ; Contributor System: [facility] ; Last Updated: 09/21/2013 19:06 CDT ; 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: Active ; Vocabulary: ICD-9-CM ; Comments: - Protein S deficiency With elevated d-dimer Dr. Anna Riley rec: lifelong coumadin Psoriasis (ICD-9-CM :696.1 ) Name of Problem: Psoriasis ; Recorder: TOOTIE LOPEZ LPN; Confirmation: Confirmed ; Classification: Nursing ; Code: 696.1 ; Contributor System: [email or web address] ; Last Updated: 04/05/2013 10:24 CDT ; Life Cycle Date: 04/05/2013 ; 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: Active ; Responsible Provider: TOOTIE LOPEZ LPN; Vocabulary: ICD-9-CM ; Comments: 04/05/2013 10:24 - TOOTIE LOPEZ LPNunknowmicah date of dx Tricuspid valve regurgitation NOS (ICD-9-CM :424.2 ) Name of Problem: Tricuspid valve regurgitation NOS ; Recorder: TOOTIE LOPEZ LPN; Confirmation: Confirmed ; Classification: Nursing ; Code: 424.2 ; Contributor System: [email or web address] ; Last Updated: 04/05/2013 10:25 CDT ; Life Cycle Date: 04/05/2013; 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: Active ; Responsible Provider: TOOTIE LOPEZ LPN; Vocabulary: ICD-9-CM ; Comments: 04/05/2013 10:25 - TOOTIE LOPEZ LPN unknown date of dx Trisomy 21 (ICD-10-CM :Q90.9 ) Name of Problem: Trisomy 21 ; Recorder: MARTHA KENDRICK MD; Confirmation: Confirmed ; Classification: Medical ; Code: Q90.9 ; Contributor System: Power[employer] ; Last Updated: 02/20/2016 7:48 CDT ; Life Cycle Date: 02/20/2016 ; 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: Active ; Responsible Provider: MARTHA ARTHUR MD; Vocabulary: ICD-10-CM Diagnoses(Active) Arm pain-swelling Date: 05/08/2016 ; Diagnosis Type: Reason For Visit ; Confirmation: Complaint of ;Clinical Dx: Arm pain-swelling ; Classification: Medical ; Clinical Service: Emergency medicine ; Code: PNED ; Probability: 0 ; Diagnosis Code: [id number] Triage Chief Complaint Description : Ground level fall approximately 1600 today. Tripped over grocery bag and landed on left arm. Patient states nothing else on her body hurts. Received fentanyl 150 mcg per medics. Left arm splinted. CWMS intact. Information Given By : Patient, EMS Present in Room During Exam/Procedure : Alone Mode of Arrival ED : Ambulance EMS Service : EMS Track : Trauma Other Languages : Bruneian GCS Assessed : Yes Treatments Prior to Arrival : Fentanyl, Intubated Are you ? : No Is Patient Female and 13-50 no hysterectomy : Yes Status : Patient denies JOYCE RUIZ RN - 05/08/2016 17:34 PARTS CATALOGER [place] Coma Eye Opening Response [place] : Spontaneously Best Verbal Response Kathleen : Oriented Best Motor Response Kathleen : Obeys simple commands [place] Coma Score : 15 JOYCE RUIZ RN - 05/08/2016 17:34 PARTS CATALOGER Pain Assessment Pain Symptoms : Yes JOYCE RUIZ RN - 05/08/2016 17:34 PARTS CATALOGER Pain Scale Pain Scale Verbal 0-10 : Open JOYCE RUIZ RN - 05/08/2016 17:34 PARTS CATALOGER Pain Pain Assessment Grid Pain 1 Location : Upper arm Laterality : Left Intensity : 10 JOYCE RUIZ RN - 05/08/2016 17:34 PARTS CATALOGER ИРИНА DCP GENERIC CODE Tracking Acuity : 3 -Urgent Tracking Group : [facility] ED JOYCE RUIZ RN - 05/08/2016 17:34 PARTS CATALOGER Respiratory Airway : Patent Respirations : Unlabored Respiratory Pattern : Regular JOYCE RUIZ RN 05/08/2016 17:34 PARTS CATALOGER Cardiovascular Heart Rhythm : Regular Skin Color : Normal for ethnicity Skin Description : Dry Skin Temperature : Warm JOYCE RUIZ RN - 05/08/2016 17:34 PARTS CATALOGER Neurological Last Well Time Known : Not applicable Level of Consciousness : Alert Orientation : Oriented x 3 Characteristics of Speech : Clear JOYCE RUIZ RN - 05/08/2016 17:34 PARTS CATALOGER ED Psychosocial Affect/Behavior : Calm Domestic Abuse Concerns : None Behavioral Health Screen/Safety Assmt : No JOYCE RUIZ RN 05/08/2016 17:34 PARTS CATALOGER Gastrointestinal Nutrition ED : Adequate JOYCE RUIZ RN - 05/08/2016 17:34 PARTS CATALOGER Musculoskeletal Fall Prevention Education Provided : Yes JOYCE RUIZ RN - 05/08/2016 17:34 PARTS CATALOGER Social Habits Exposure to Tobacco Smoke : Other: never smoker Smoking Status : Never smoker Tobacco 2A : No Tobacco Use/Currently Using : No Tobacco Use/Last 30 Days : No Tobacco Use/Last 12 months : No JOYCE RUIZ RN - 05/08/2016 17:34 PARTS CATALOGER Alcohol Use Grid Alcohol Use : Yes Frequency : Occasionally JOYCE RUIZ RN 05/08/2016 17:34 PARTS CATALOGER Recreational Drug Use Grid Drug Use : None JOYCE RUIZ RN 05/08/2016 17:34 PARTS CATALOGER Peripheral IV Peripheral IV Assess/Intervention Grid Peripheral IV #1 IV Activity : Field start Number of Attempts : 1 Date of Insertion : 05/08/2016 PARTS CATALOGER IV Site : Antecubital Laterality : Right Catheter Size : 18 Catheter Type : Over the needle Site Condition : No complications JOYCE RUIZ RN - 05/08/2016 17:34 PARTS CATALOGER [facility] Document Id: [id number] PARTS CATALOGER!80 S CATALOGER Ivelisse East - 05/08/2016 5:23 PM CST ED Pre-Arrival Note Pre-Arrival Summary Name: NORMA, Current Date: 05/08/2016 17:23:52 PARTS CATALOGER Gender: Female Age: 41 Pre-Arrival Type: Ambulance ETA: 05/08/2016 17:46:00 PARTS CATALOGER Presenting Problem: Pre-Arrival User: IVELISSE EAST Referring Source: Location: 01 Pre-Arrival Communication Form Vital Signs: 41 year old female 73 patient is coming in due to a fall patient believes to have a fractured arm 100 of fetanyl arm is in sling iv established Miscellaneous Issues: Source: [facility] [employer] Document Id: [id number] S CATALOGER documented in this encounter Miscellaneous Notes Miscellaneous - Joyce Ruiz R.N. - 05/08/2016 10:19 PM CST Valuables/Belongings Valuables/Belongings Entered On: 05/08/2016 22:19 PARTS CATALOGER Performed On: 05/08/2016 22:19 PARTS CATALOGER by JOYCE RUIZ RN Valuables/Belongings Valuables/Belongings Grid Valuables with Patient Clothes, Patient Valuables : Pants, Shirt Electronic Devices : Cell phone JOYCE RUIZ RN - 05/08/2016 22:19 PARTS CATALOGER Source: [facility] [employer] Document Id: [id number] PARTS CATALOGER!6 S CATALOGER Miscellaneous - Conversion, Historical Provider Ser - 05/08/2016 10:15 PM PARTS CATALOGER Coding Summary-Paper Based CODING DATE: 05/20/2016 FINAL [facility] STATUS: Disch/Trans ShortTerm Gen Hosp-Inpt Care PAYOR: Medicare Advantage ADMIT DX: M79.602 Pain in left arm REASON FOR VISIT DX: M79.602 Pain in left arm FINAL DX: PRINCIPAL: S42.332A Displaced oblique fracture of shaft of humerus, left arm, initial encounter for closed fracture SECONDARY: E78.2 Mixed hyperlipidemia Z91.030 Bee allergy status Z88.8 Allergy status to other drugs, medicaments and biological substances status W01.0XXA Fall on same level from slipping, tripping and stumbling without subsequent striking against object, initial encounter Y92.[address] in unspecified non-institutional (private) residence as the place of occurrence of the external cause PROCEDURES DOCTOR NAME DATE NOTE: The code number assigned matches the documented diagnosis and / or procedure in the patient's chart. However, the narrative phrase printed from the coding software may appear abbreviated, or result in slightly different terminology. Coded By: MELI POWELL Date Saved: 05/20/2016 12:30 pm Source: [employer] Document Id: [id number] Miscellaneous - Joyce Ruiz RMichaelN. - 05/08/2016 5:23 PM CST Facility Charge Ticket 2.0 11.0 DX Facility Charge Ticket 2.0 11.0 DX Entered On: 05/08/2016 22:19 PARTS CATALOGER Performed On: 05/08/2016 17:23 PARTS CATALOGER by JOYCE RUIZ RN Facility Charge Ticket 2.0 11.0 DX ED Other Charges : Standard ED Encounter TVL Level Translated RTF : Arm pain-swelling TVL:3 TVL Level for Facility Charge Ticket : Level 3 Arrival Mode Calc : 2,305 Mode of Arrival ED : Ambulance [facility] Mode of Arrival Interpreted : ARSENIO [place] Process Management : None Order Management RTF : Xray Shoulder XR Left 2 or more views port,05/08/16 18:08,MERCEDES HOANG DO Ordered XR Elbow Left 2 views,05/08/16 17:54,MERCEDES HOANG DO Ordered [facility] Order Management : Xray - plain films 30 Minutes Critical Care : No Nursing Notes RTF : Nursing Notes ED Primary Assessment,05/08/16 17:25,JOYCE RUIZ RN ED Pain Assessment,05/08/16 18:32,JOYCE RUIZ RN [facility] Nursing Assessment : Triage and 6+ nursing assessments [facility] Disposition : Transfer/Return to Hospital/SNF [facility] Total Points with Diagnosis Control : 15 [facility] Visit Level : 14338 Level 5 Treatments Prior to Arrival : Fentanyl, Intubated JOYCE RUIZ RN - 05/08/2016 22:19 PARTS CATALOGER [facility] Document Id: [id number] PARTS CATALOGER!18 S CATALOGER documented in this encounter Plan of Treatment Not on filedocumented as of this encounter Visit Diagnoses Not on filedocumented in this encounter
--- OUTSIDE RECORDS SUMMARY | 2022-04-25 16:00 | XMS_ITS | Encounter Summary ---
:1975 Author Organization [facility] Address [address] [place] [address] Care Team Providers Name Role Phone Unavailable Primary Care Provider Unavailable Encounter Details Date Type Department Care Team Description 07/01/2016 Hospital Encounter HX [facility] Stoney Jameson M.D. [address] [place], [place] [address] (Wo rk) Social History [...] - Height 146 cm (4' 9.48) 07/01/2016 9:01 AM DRAFTER DETAIL Body Mass Index - - documented in [...] of this encounter Miscellaneous Notes Miscellaneous - Emily Galvan M.D. - 07/21/2016 5:54 AM CST Normal Results Letter July 21, 2016 [address] [place] [address] [place] [id number] Dear DORITA MEDINA, Ultrasound is stable. New finding of sunclinical HYPOTHYROIDISM- should make appointment with Dr. Garibay to discuss follow up recommended. All other labs stable. Continue good diet and exercise! Result Name Current Result Previous Result Normal Range Sodium Lvl (mmol/L) 137 07/01/2016 143 06/18/2016 135 - 145 Potassium Lvl (mmol/L) 4.0 07/01/2016 4.4 06/18/2016 3.5 - 5.1 Chloride (mmol/L) 100 07/01/2016 104 06/18/2016 98 - 107 CO2 (mmol/L) 26 07/01/2016 27 06/18/2016 22 - 29 AGAP (mmol/L) 11 07/01/2016 12 06/18/2016 10 - 20 Alkaline Phosphatase (U/L) 74 07/01/2016 83 06/18/2016 37 - 98 Glucose Fasting (mg/dL) 94 07/01/2016 70 - 99 Glucose Lvl (mg/dL) 94 07/01/2016 96 06/18/2016 70 - 139 Creatinine (mg/dL) 0.95 07/01/2016 (H) 1.11 06/18/2016 0.59 - 1.04 EGFR (MDRD) (mL/min/1.73m2) >60 07/01/2016 (L) 54 06/18/2016 >=60 - t EGFR (MDRD) (mL/min/1.73m2) >60 07/01/2016 >60 06/18/2016 >=60 - BUN (mg/dL) 14 07/01/2016 16 06/18/2016 6 - 21 Calcium Lvl (mg/dL) (L) 8.4 07/01/2016 8.8 06/18/2016 8.6 - 10.3 Protein Total (g/dL) 7.0 07/01/2016 7.0 06/18/2016 6.3 - 7.9 Albumin Lvl (g/dL) 3.5 07/01/2016 3.5 06/18/2016 3.5 - 5.0 AST (U/L) 17 07/01/2016 20 06/18/2016 8 - 43 ALT (U/L) 14 07/01/2016 17 06/18/2016 7 - 45 Bili Total (mg/dL) 0.3 07/01/2016 0.2 06/18/2016 - <=1.2 Cholesterol (mg/dL) 187 07/01/2016 - <=199 Trig (mg/dL) 127 07/01/2016 - <=149 HDL (mg/dL) (L) 49 07/01/2016 >=50 - LDL Calculated (mg/dL) 113 07/01/2016 - <=129 Chol/HDL Ratio 4 07/01/2016 Hgb A1c (% A1C) 4.8 07/01/2016 - <=5.6 TSH (mIU/L) (H) 6.13 07/01/2016 0.27 - 4.20 US Pelvic 07/01/2016 Sincerely, EMILY GALVAN [address] [address] Electronic Signature Electronically Signed By: EMILY GALVAN MD On: July 21, 2016 This document has images extracted. Source: [facility] POWERCHART Document Id: [id number] Electronically signed by Conversion, [facility] Prisoner Classification Interviewer [id number] at 12/05/2016 9:39 PM CDT Miscellaneous - Conversion, Historical Provider Ser - 07/01/2016 11:59 PM DRAFTER DETAIL Coding Summary-Paper Based CODING DATE: 07/07/2016 FINAL [facility] STATUS: * Discharged to Home or Self Care PAYOR: Medicare Advantage ADMIT DX: REASON FOR VISIT DX: FINAL DX: PRINCIPAL: Z00.00 Encounter for general adult medical examination without abnormal findings SECONDARY: Q90.9 Down syndrome, unspecified R93.8 Abnormal findings on diagnostic imaging of other specified body structures PROCEDURES DOCTOR NAME DATE NOTE: The code number assigned matches the documented diagnosis and / or procedure in the patient's chart. However, the narrative phrase printed from the coding software may appear abbreviated, or result in slightly different terminology. Coded By: FELICIA OCONNELL Date Saved: 07/07/2016 03:37 pm Source: [facility] Speek Document Id: [id number] documented in this encounter Plan of Treatment Not on filedocumented as of this encounter Visit Diagnoses Not on filedocumented in this encounter
--- OUTSIDE RECORDS SUMMARY | 2022-04-25 16:00 | XMS_ITS | Encounter Summary ---
:[address] [facility] Address [address] [place] [address] Care Team Providers Name Role Phone Unavailable Primary Care Provider Unavailable Encounter Details Date Type Department Care Team Description 04/28/2016 Hospital Encounter HX [facility] Marsha Henriquez M.D. [address] [place], [place] [address] (Wo rk) Social History [...] Concentration - - Weight - - Height 148 cm (4' 10.27) 04/28/2016 6:53 AM CDT Body Mass Index - - [...] encounter Miscellaneous Notes Miscellaneous - Meli Campo RViktor - 04/28/2016 11:25 AM CDT Anticoagulation Patient Intake Anticoagulation Patient Intake Entered On: 04/28/2016 11:26 CDT Performed On: 04/28/2016 11:25 CDT by MELI CAMPO RN Plan INR goal range : 2.0 - 3.0 Duration of Therapy : Lifelong Tablet Size : 2 mg, 5 mg MELI CAMPO RN - 04/28/2016 11:25 CDT Anticoagulation Management Plan Grid Date : [...] darya BURGESS JM MELI Carroll RN - 04/28/2016 11:25 CDT MELI CAMPO RN - 04/28/2016 11:25 CDT MELI CAMPO - 04/28/2016 11:25 CDT MELI CAMPO RN - 04/28/2016 11:25 CDT Date : 12/26/2013 CDT 01/30/2014 CDT [...] completed by : MELI Pradhan RN - 04/28/2016 11:25 CDT MELI CAMPO RN - 04/28/2016 11:25 CDT MELI CAMPO - 04/28/2016 11:25 CDT MELI CAMPO RN - 04/28/2016 11:25 CDT Date : 03/20/2014 CDT 03/27/2014 CDT [...] try dec as noted Called to mom, [place] to meds has been drinking grape juice. no bleeding. no vitamin K per Dr. Duarte. dose consultwith Agatha Hopkins/Pharmacy. instructed to be seen if bleeding occurs. called mom, Recommend Recheck : One week Two weeks Two days One day, Other: Plan completed by : darya lackey LM /pharmacy MELI CAMPO RN - 04/28/2016 11:25 CDT MELI CAMPO RN - 04/28/2016 11:25 CDT MELI CAMPO - 04/28/2016 11:25 PATRICIAT MELI CAMPO RN - 04/28/2016 11:25 CDT Date : 04/17/2014 CDT 04/24/2014 CDT 05/01/2014 SENIOR MARKETING ANALYST 05/15/2014 SENIOR MARKETING ANALYST Location of INR sample : Lab Lab [...] will trynoted dose called to mom Fabiola [phone] called to Fabiola/no changes Called to mother/Fabiola, not awareof any changes Recommend Recheck : One week One week Two weeks Two weeks Plan completed by : MELI LEON RN - 04/28/2016 11:25 MELI ESQUIVEL RN - 04/28/2016 11:25 PATRICIAT MELI CAMPO - 04/28/2016 11:25 CDT MELI CAMPO RN - 04/28/2016 11:25 CDT Date : 06/03/2014 SENIOR MARKETING ANALYST 06/05/2014 SENIOR MARKETING ANALYST 06/10/2014 SENIOR MARKETING ANALYST 06/11/2014 SENIOR MARKETING ANALYST Location of INR sample : Lab Type [...] Called motherFabiola. Hue will be staying in [place] 2wks post-surgery & have INR drawn there. [...] lovenox tomorrow AM as ordered. INR in [place] for next several weeks as pt will be recovering there. Recommend Recheck : Other: depending on Dr. Henriquez's preop. Other: 06/18 Other: 06/13/14 Plan completed by : MELI ROSADO RN - 04/28/2016 11:25 CDT MELI CAMPO RN - 04/28/2016 11:25 CDT MELI CAMPON - 04/28/2016 11:25 CDT MELI CAMPO RN - 04/28/2016 11:25 CDT Date : 06/14/2014 SENIOR MARKETING ANALYST 06/14/2014 SENIOR MARKETING ANALYST 06/16/2014 SENIOR MARKETING ANALYST 06/23/2014 SENIOR MARKETING ANALYST Location of INR sample : Clinic Lab Lab Type of Sample : Venous Venous INR Result : 1.3 on 06/13 2.4 faxed from lab 2.0 Warfarin Dose : (pt took 2.5mg 06/13) 5mg Sat and 5mg Sun (06/14 and 06/15) 5mg Mon and 2.5mg all other days 5mg Mon and 2.5mg all other days Total Weekly Warfarin Dose : 20 20 Comment : [place] lab called with INR result from 06/13, reported they left a message with Dr. Henriquez and hadn't heard back, spoke with motherFabiola, and gave doses, continue Lovenox and repeat INR 06/16, message left with INR clinic in [place] to contact [facility] Please contact Thirsty on 06/16 for result and may call Fabiola at [phone] with instructions call to Fabiola/will stop Lovenox injections and take noted dose/pt has an appt here in [place] 06/23 so will do lab appt here that day Called to Fabiola/ Hue will be back at [facility] by next draw. will have done on . no changes to meds/diet. Recommend Recheck : Two days One week Two weeks Plan completed by : MELI Vazquez LM RN - 04/28/2016 11:25 CDT MELI CAMPO RN - 04/28/2016 11:25 CDT MELI CAMPO - 04/28/2016 11:25 CDT MELI CAMPO RN - 04/28/2016 11:25 CDT Date : 07/10/2014 SENIOR MARKETING ANALYST 07/17/2014 SENIOR MARKETING ANALYST 07/31/2014 SENIOR MARKETING ANALYST 09/11/2014 CDT Location of INR sample : [...] completed by : MELI Rubi RN - 04/28/2016 11:25 CDT MELI CAMPO RN - 04/28/2016 11:25 CDT MELI CAMPO - 04/28/2016 11:25 CDT MELI CAMPO RN - 04/28/2016 11:25 CDT Date : 09/12/2014 CDT 09/25/2014 CDT [...] doses Called to Mom/Fabiola, no changes, rev'd w/Arvindvoakosua/Pharmacy called to Mom/Fabiola, no changes Recommend Recheck : Two weeks One week One week Two weeks Plan completed by : MELI Owen RN - 04/28/2016 11:25 CDT MELI CAMPO RN - 04/28/2016 11:25 CDT MELI CAMPO - 04/28/2016 11:25 CDT MELI CAMPO RN - 04/28/2016 11:25 CDT Date : 10/23/2014 CDT 11/13/2014 CDT [...] Quintin/Pharmacy and called Mom with orders Per Mereidth Hernandez, no changes, has been drinking some Kiwi Juice, no bleeding/consult with Quintin/Pharmacy Called to mom /Fabiola, no changes, rev'd w/BCarlson/Pharmacy Recommend Recheck : Three weeks One week One week One week Plan completed by : MELI Bailey RN - 04/28/2016 11:25 CDT MELI CAMPO RN - 04/28/2016 11:25 CDT MELI CAMPO - 04/28/2016 11:25 CDT MELI CAMPO RN - 04/28/2016 11:25 CDT Date : 12/04/2014 CDT 12/18/2014 CDT [...] completed by : MELI Shirley RN - 04/28/2016 11:25 CDT MELI CAMPO RN - 04/28/2016 11:25 CDT MELI CAMPO - 04/28/2016 11:25 CDT MELI CAMPO RN - 04/28/2016 11:25 CDT Date : 02/05/2015 CDT 02/26/2015 CDT [...] completed by : MELI CAMPOS RN - 04/28/2016 11:25 CDT MELI CAMPO RN - 04/28/2016 11:25 CDT MELI CAMPO - 04/28/2016 11:25 CDT MELI CAMPO RN - 04/28/2016 11:25 CDT Date : 04/09/2015 CDT 05/07/2015 SENIOR MARKETING ANALYST 06/04/2015 SENIOR MARKETING ANALYST 07/02/2015 SENIOR MARKETING ANALYST Location of INR sample : Lab Lab [...] completed by : MELI Keating RN - 04/28/2016 11:25 CDT MELI CAMPO RN - 04/28/2016 11:25 CDT MELI CAMPO - 04/28/2016 11:25 CDT MELI CAMPO RN - 04/28/2016 11:25 CDT Date : 08/06/2015 SENIOR MARKETING ANALYST 09/17/2015 CDT 10/29/2015 CDT 11/12/2015 CDT Location [...] completed by : MELI Edwards RN - 04/28/2016 11:25 CDT MELI CAMPO RN - 04/28/2016 11:25 CDT MEIL CAMPO - 04/28/2016 11:25 PATRICIAT MELI CAMPO RN - 04/28/2016 11:25 CDT Date : 11/19/2015 CDT 12/03/2015 CDT [...] completed by : MELI Pickett RN - 04/28/2016 11:25 CDT MELI CAMPO RN - 04/28/2016 11:25 CDT MELI CAMPO - 04/28/2016 11:25 CDT MELI CAMPO RN - 04/28/2016 11:25 CDT Date : 02/19/2016 CDT 02/20/2016 CDT [...] completed by : Tyshawn Brizuela, Pharm.DMichael Brizuela PharmJaime ASTUDILLO, PharmD Eliseo Quezada, ReaD. MELI CAMPO RN - 04/28/2016 11:25 CDT MELI CAMPO RN - 04/28/2016 11:25 CDT MELI CAMPON - 04/28/2016 11:25 CDT MELI CAMPO RN - 04/28/2016 11:25 CDT Date : 02/23/2016 CDT 02/24/2016 CDT 02/25/2016 CDT 02/26/2016 CDT Location of INR sample : [facility] Type of Sample : Venous [...] by : Eliseo Quezada, PharmValentina. Eliseo Quezada, PharmD. Tyshawn Brizuela, Pharm.DMichael Quezada, Alida. MELI CAMPO RN - 04/28/2016 11:25 CDT MELI CAMPO RN - 04/28/2016 11:25 CDT MELI CAMPON - 04/28/2016 11:25 CDT MELI CAMPO RN - 04/28/2016 11:25 CDT Date : 02/27/2016 CDT 03/01/2016 CDT 03/04/2016 CDT 03/07/2016 CDT Location of INR sample : Hospital [facility] Lab [facility] Type of Sample : Venous Capillary/POC Venous Capillary/POC INR Result : 2.07 2.5 2.2 2.4 Warfarin Dose : 2 mg daily 2mg daily 2.5mg 03/04-03/06 2.5mg Fri,Sat,Sun Total Weekly Warfarin Dose : 14 15.5 Comment : Pt being discharged on Bactrim. Will rock picker rx for 2 mg tabs On bactrim 2 days left, has f/u in [place] on Monday. Pt mother states plan to return to [facility] on 03/06. next f/u will be in agatn. 2mg TuWTh Rev'd with Jelly/Pharmacist,called to castro/Fabiola [...] Other: 4 days Plan completed by : brenton Bowers RN MELI Peres RN RN - 04/28/2016 11:25 CDT MELI CAMPO RN - 04/28/2016 11:25 CDT MELI CAMPON - 04/28/2016 11:25 CDT MELI CAMPO RN - 04/28/2016 11:25 CDT Date : 03/11/2016 CDT 03/16/2016 CDT [...] pt will be staying with sister in [facility] next week she will have INR drawn in [place] again called to Fabiola/pt to do next INR at [facility] on a Thurs./no changes called to Fabiola/no changes called to Fabiola/Mom,no changes/missed doses Recommend Recheck : Other: 03/16/16 Other: 03/31/16(2 weeks) One month Two weeks Plan completed by : MELI Lorenzana RN - 04/28/2016 11:25 CDT MELI CAMPO RN - 04/28/2016 11:25 CDT MELI CAMPON - 04/28/2016 11:25 CDT MELI CAMPO RN - 04/28/2016 11:25 CDT Anticoagulation Assessment / History Visit : Phone management Plan of Care Date : 01/29/2008 CDT Primary Physician Anticoagulation : TASHA HENRIQUEZ MD 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 - 04/28/2016 10:18 AM CDT Results Notification From: KHADAR BANDA RN ( Anticoagulation Nurse) To: Anticoagulation Nurse; Sent: 04/28/2016 10:18:09 CDT Show up: 04/28/2016 10:19:00 CDT Subject: Results Notification Results: Date Result Name Value Ref Range 04/28/2016 07:55 PT 17.7 second(s) (8.8 - 11.9) 04/28/2016 07:55 INR 1.7 (0.9 - 1.2) Source: [facility] Document Id: [id number] Electronically signed by Lay [facility] Psychiatric Centersylvia Shop Fitter [id number] at 11/20/2016 8:14 AM CDT documented in this encounter Plan of Treatment Not on filedocumented as of this encounter Procedures Procedure Name Priority Date/Time Associated Comments Diagnosis PROTHROMBIN TIME Routine 04/28/2016 7:55 AM Resul ts for this (PT), P CDT procedure are i n the results section. documented in this encounter Results (ABNORMAL) PT (Prothrombin Time) with INR (04/28/2016 7:55 AM CDT) [facility] Method Time Signature Prothrombin 17.7 (H) 8.8 - 11.9 POWERCHART Time, P SECONDS INR 1.7 (H) 0.9 - 1.2 POWERCHART Comment: Recommended INR for prophylaxis/treatmen t of Venous Thrombosis, Pulmonary Embolism, Myocardial Infarction, and Embolism from Atrial Fibrillation is 2.0- 3.0 (Standard Therapy) Recommended INR for Mechanical Heart Tejal ves and recurrent Systemic Embolism is 2.5-3.5 (Intensive Therapy) Specimen (Source) Anatomical Collection Method Collection Time Re ceived Time Location / / Volume Laterality Blood 04/28/2016 7:55 AM CDT Tasha Henriquez M.D. LAB BLOOD ADD-ON Performing Organization Address City/State/ZIP Code Phon e Number POWERCHART documented in this encounter Visit Diagnoses Not on filedocumented in this encounter
--- OUTSIDE RECORDS SUMMARY | 2022-04-25 16:00 | XMS_ITS | Encounter Summary ---
:1975 Author Organization [facility] Address [address] [place] [address] Care Team Providers Name Role Phone Unavailable Primary Care Provider Unavailable Encounter Details Date Type Department Care Team Description 03/31/2016 Hospital Encounter [facility] Marsha Henriquez M.D. [address] [place], [place] [address] (Wo rk) Social History [...] - - Height 148 cm (4' 10.27) 03/31/2016 6:35 AM CDT Body Mass Index - - [...] Notes Miscellaneous - Khadar Banda R.N. - 03/31/2016 11:24 AM CDT Anticoagulation Patient Intake Anticoagulation Patient Intake Entered On: 03/31/2016 11:26 CDT Performed On: 03/31/2016 11:24 CDT by KHADAR BANDA RN Plan INR goal range : 2.0 - 3.0 Duration of Therapy : Lifelong Tablet Size : 2 mg, 5 mg KHADAR BANDA RN - 03/31/2016 11:24 CDT Anticoagulation Management Plan Grid Date : [...] completed by : KHADAR Manning RN - 03/31/2016 11:24 CDT KHADAR BANDA RN - 03/31/2016 11:24 CDT KHADAR BANDA RN - 03/31/2016 11:24 CDT KHADAR BANDA RN - 03/31/2016 11:24 CDT Date : 12/26/2013 CDT 01/30/2014 CDT [...] completed by : KHADAR Cho RN - 03/31/2016 11:24 CDT KHADAR BANDA RN - 03/31/2016 11:24 CDT KHADAR BANDA RN - 03/31/2016 11:24 CDT KHADAR BANDA RN - 03/31/2016 11:24 CDT Date : 03/20/2014 CDT 03/27/2014 CDT [...] lackey LM /pharmacy KHADAR BANDA RN - 03/31/2016 11:24 CDT KHADAR BANDA RN - 03/31/2016 11:24 CDT KHADAR BANDA RN - 03/31/2016 11:24 CDT KHADAR BANDA RN - 03/31/2016 11:24 CDT Date : 04/17/2014 CDT 04/24/2014 CDT 05/01/2014 MOTOR COACH OPERATOR 05/15/2014 MOTOR COACH OPERATOR Location of INR sample : Lab [...] will trynoted dose called to mom Fabiola [phone] called to Fabiola/no changes Called to mother/Fabiola, not awareof any changes Recommend Recheck : One week One week Two weeks Two weeks Plan completed by : KHADAR HACKETT RN - 03/31/2016 11:24 CDT KHADAR BANDA RN - 03/31/2016 11:24 CDT KHADAR BANDA RN - 03/31/2016 11:24 CDT KHADAR BANDA RN - 03/31/2016 11:24 CDT Date : 06/03/2014 MOTOR COACH OPERATOR 06/05/2014 MOTOR COACH OPERATOR 06/10/2014 MOTOR COACH OPERATOR 06/11/2014 MOTOR COACH OPERATOR Location of INR sample : Lab [...] Called motherFabiola. Hue will be staying in [place] 2wks post-surgery & have INR drawn there. [...] lovenox tomorrow AM as ordered. INR in [place] for next several weeks as pt will be recovering there. Recommend Recheck : Other: depending on Dr. Henriquez's preop. Other: 06/18 Other: 06/13/14 Plan completed by : KHADAR SANDERS RN - 03/31/2016 11:24 CDT KHADAR BANDA RN - 03/31/2016 11:24 CDT KHADAR BANDA RN - 03/31/2016 11:24 CDT KHADAR BANDA RN - 03/31/2016 11:24 CDT Date : 06/14/2014 MOTOR COACH OPERATOR 06/14/2014 MOTOR COACH OPERATOR 06/16/2014 MOTOR COACH OPERATOR 06/23/2014 MOTOR COACH OPERATOR Location of INR sample : Clinic [...] Warfarin Dose : 20 20 Comment : [place] lab called with INR result from 06/13, reported they left a message with Dr. Henriquez and hadn't heard back, spoke with motherFabiola, and gave doses, continue Lovenox and repeat INR 06/16, message left with INR clinic in [place] to contact [facility] Please contact [facility] [address] lab on 06/16 for result and may call Fabiola at [phone] with instructions call to Fabiola/will stop Lovenox injections and take noted dose/pt has an appt here in [place] 06/23 so will do lab appt here that day Called to Fabioal/ Hue will be back at [facility] by next draw. will have done on . no changes to meds/diet. Recommend Recheck : Two days One week Two weeks Plan completed by : KHADAR Mattson LM RN - 03/31/2016 11:24 CDT KHADAR BANDA RN - 03/31/2016 11:24 CDT KHADAR BANDA RN - 03/31/2016 11:24 CDT KHADAR BANDA RN - 03/31/2016 11:24 CDT Date : 07/10/2014 MOTOR COACH OPERATOR 07/17/2014 MOTOR COACH OPERATOR 07/31/2014 MOTOR COACH OPERATOR 09/11/2014 CDT Location of INR sample [...] completed by : KHADAR Dumont RN - 03/31/2016 11:24 CDT KHADAR BANDA RN - 03/31/2016 11:24 CDT KHADAR BANDA RN - 03/31/2016 11:24 CDT KHADAR BANDA RN - 03/31/2016 11:24 CDT Date : 09/12/2014 CDT 09/25/2014 CDT [...] doses Called to Mom/Fabiola, no changes, rev'd w/Arvindvorsamarilis/Pharmacy called to Mom/Fabiola, no changes Recommend Recheck : Two weeks One week One week Two weeks Plan completed by : KHADAR Rondon RN - 03/31/2016 11:24 CDT KHADAR BANDA RN - 03/31/2016 11:24 CDT KHADAR BANDA RN - 03/31/2016 11:24 CDT KHADAR BANDA RN - 03/31/2016 11:24 CDT Date : 10/23/2014 CDT 11/13/2014 CDT [...] completed by : KHADAR Toro RN - 03/31/2016 11:24 CDT KHADAR BANDA RN - 03/31/2016 11:24 CDT KHADAR BANDA RN - 03/31/2016 11:24 CDT KHADAR BANDA RN - 03/31/2016 11:24 CDT Date : 12/04/2014 CDT 12/18/2014 CDT [...] completed by : KHADAR Vargas RN - 03/31/2016 11:24 CDT KHADAR BANDA RN - 03/31/2016 11:24 CDT KHADAR BANDA RN - 03/31/2016 11:24 CDT KHADAR BANDA RN - 03/31/2016 11:24 CDT Date : 02/05/2015 CDT 02/26/2015 CDT [...] completed by : KHADAR SLOAN RN - 03/31/2016 11:24 CDT KHADAR BANDA RN - 03/31/2016 11:24 CDT KHADAR BANDA RN - 03/31/2016 11:24 CDT KHADAR BANDA RN - 03/31/2016 11:24 CDT Date : 04/09/2015 CDT 05/07/2015 MOTOR COACH OPERATOR 06/04/2015 MOTOR COACH OPERATOR 07/02/2015 MOTOR COACH OPERATOR Location of INR sample : Lab [...] completed by : KHADAR Dowell RN - 03/31/2016 11:24 CDT KHADAR BANDA RN - 03/31/2016 11:24 CDT KHADAR BANDA RN - 03/31/2016 11:24 CDT KHADAR BANDA RN - 03/31/2016 11:24 CDT Date : 08/06/2015 MOTOR COACH OPERATOR 09/17/2015 CDT 10/29/2015 CDT 11/12/2015 CDT [...] completed by : KHADAR Rodriguez RN - 03/31/2016 11:24 CDT KHADAR BANDA RN - 03/31/2016 11:24 CDT KHADAR BADNA RN - 03/31/2016 11:24 CDT KHADAR BANDA RN - 03/31/2016 11:24 CDT Date : 11/19/2015 CDT 12/03/2015 CDT [...] completed by : KHADAR Newman RN - 03/31/2016 11:24 CDT KHADAR BANDA RN - 03/31/2016 11:24 CDT KHADAR BANDA RN - 03/31/2016 11:24 CDT KHADAR BANDA RN - 03/31/2016 11:24 CDT Date : 02/19/2016 CDT 02/20/2016 CDT 02/21/2016 CDT 02/22/2016 CDT Location of INR sample : [facility] Type of Sample : [...] Tyshawn Brizuela, Pharm.DMichael Brizuela, Pharm.DMichael ASTUDILLO, PharmD Rea LeonD. KHADAR BANDA RN - 03/31/2016 11:24 CDT KHADAR BANDA RN - 03/31/2016 11:24 CDT KHADAR BANDA RN - 03/31/2016 11:24 CDT KHADAR BANDA RN - 03/31/2016 11:24 CDT Date : 02/23/2016 CDT 02/24/2016 CDT 02/25/2016 CDT 02/26/2016 CDT Location of INR sample : [facility] Type of Sample : Venous Venous [...] Pharm.DMichael Quezada, PharmD. KHADAR BANDA RN - 03/31/2016 11:24 CDT KHADAR BANDA RN - 03/31/2016 11:24 CDT KHADAR BANDA RN - 03/31/2016 11:24 CDT KHADAR BANDA RN - 03/31/2016 11:24 CDT Date : 02/27/2016 CDT 03/01/2016 CDT 03/04/2016 CDT 03/07/2016 CDT Location of INR sample [facility] Type of Sample : Venous Capillary/POC Venous Capillary/POC INR Result : 2.07 2.5 2.2 2.4 Warfarin Dose : 2 mg daily 2mg daily 2.5mg 03/04-03/06 2.5mg Mon,Mon,Mon Total Weekly Warfarin Dose : 14 15.5 Comment : Pt being discharged on Bactrim. Will steel pickler rx for 2 mg tabs On bactrim 2 days left, has f/u in [place] on Monday. Pt mother states plan to return to [facility] on 03/06. next f/u will be in [facility]. 2mg TuWTh Rev'd with Jelly/Pharmacist,called to [...] : KHADAR Diana RN, RN RN - 03/31/2016 11:24 CDT KHADAR BANDA RN - 03/31/2016 11:24 CDT KHADAR BANDA RN - 03/31/2016 11:24 CDT KHADAR BANDA RN - 03/31/2016 11:24 CDT Date : 03/11/2016 CDT 03/16/2016 CDT 03/31/2016 CDT Location of INR sample : Lab Lab Lab Type of Sample : Venous Venous Venous INR Result : 2.2 2.4 2.0 Warfarin Dose : 2.5mg daily 2.5mg daily 2.5mg daily Total Weekly Warfarin Dose : 17.5 17.5 Comment : INR drawn in [place] faxed to us,called to castro/Fabiola,no changes pt will be staying with sister in [facility] next week she will have INR drawn in [place] again called to Fabiola/pt to do next INR at [facility] on a ./no changes called to Fabiola/no changes Recommend Recheck : Other: 03/16/16 Other: 03/31/16(2 weeks) One month Plan completed by : NB OZZY ly KHADAR BANDA RN - 03/31/2016 11:24 CDT KHADAR BANDA RN - 03/31/2016 11:24 CDT KHADAR BANDA RN - 03/31/2016 11:24 CDT Anticoagulation Assessment / History Visit : Phone management Plan of Care Date : 01/29/2008 CDT Primary Physician Anticoagulation : TASHA HENRIQUEZ MD 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 - 03/31/2016 9:30 AM CDT Results Notification From: KHADAR BANDA RN ( Anticoagulation Nurse) To: Anticoagulation Nurse; Sent: 03/31/2016 09:30:42 CDT Show up: 03/31/2016 09:31:00 CDT Subject: Results Notification Results: Date Result Name Value Ref Range 03/31/2016 08:02 PT 22.1 second(s) (8.8 - 11.9) 03/31/2016 08:02 INR 2.0 (0.9 - 1.2) Source: [facility] POWERCHART Document Id: [id number] Electronically signed by Conversion, [facility] Dietitian Helper [id number] at 11/20/2016 9:26 AM CDT documented in this encounter Plan of Treatment Not on filedocumented as of this encounter Procedures Procedure Name Priority Date/Time Associated Comments Diagnosis PROTHROMBIN TIME Routine 03/31/2016 8:02 AM Resul ts for this (PT), P CDT procedure are i n the results section. documented in this encounter Results (ABNORMAL) PT (Prothrombin Time) with INR (03/31/2016 8:02 AM CDT) [facility] Method Time Signature Prothrombin 22.1 (H) 8.8 - 11.9 POWERCHART Time, P SECONDS INR 2.0 (H) 0.9 - 1.2 POWERCHART Comment: Recommended INR for prophylaxis/treatmen t of Venous Thrombosis, Pulmonary Embolism, Myocardial Infarction, and Embolism from Atrial Fibrillation is 2.0- 3.0 (Standard Therapy) Recommended INR for Mechanical Heart Tejal ves and recurrent Systemic Embolism is 2.5-3.5 (Intensive Therapy) Specimen (Source) Anatomical Collection Method Collection Time Re ceived Time Location / / Volume Laterality Blood 03/31/2016 8:02 AM CDT Tasha Henriquez M.D. LAB BLOOD ADD-ON Performing Organization Address City/State/ZIP Code Phon e Number POWERCHART documented in this encounter Visit Diagnoses Not on filedocumented in this encounter
--- OUTSIDE RECORDS SUMMARY | 2022-04-25 16:00 | XMS_ITS | Encounter Summary ---
:1975 Author Organization [facility] Address [address] [place] [address] Care Team Providers Name Role Phone Unavailable Primary Care Provider Unavailable Encounter Details Date Type Department Care Team Description 06/17/2016 Hospital Encounter HX [facility] Marsha Garibay M.D. [address] [place], [place] [address] (Wo rk) Social History [...] - - Height 137 cm (4' 5.94) 06/17/2016 9:29 AM CUT PRESS OPERATOR Body Mass Index - - documented [...] Date/Time Associated Comments Diagnosis PROTHROMBIN TIME Routine 06/17/2016 9:36 AM Resul ts for this (PT), P CUT PRESS 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 documented in this encounter Results (ABNORMAL) PT (Prothrombin Time) with INR (06/17/2016 9:36 AM CUT PRESS OPERATOR) [facility] Method Time Signature Prothrombin 31.5 (H) 8.8 - 11.9 POWERCHART Time, P SECONDS INR 2.7 (H) 0.9 - 1.2 POWERCHART Comment: Recommended INR for prophylaxis/treatme nt of Venous Thrombosis, Pulmonary Embolism, Myocardial Infarction, and Embolism from Atrial Fibrillation is 2.0- 3.0 (Standard Therapy) Recommended INR for Mechanical Heart Tejal ves and recurrent Systemic Embolism is 2.5-3.5 (Intensive Therapy) Specimen (Source) Anatomical Collection Method Collection Time Re ceived Time Location / / Volume Laterality Blood 06/17/2016 9:36 AM CUT PRESS OPERATOR Sridhar Garibay M.D. LAB BLOOD ADD-ON Performing Organization Address City/State/ZIP Code Phon e Number POWERCHART documented in this encounter Visit Diagnoses Not on filedocumented in this encounter
--- OUTSIDE RECORDS SUMMARY | 2022-04-25 16:00 | XMS_ITS | Encounter Summary ---
:1975 Author Organization [facility] Address [address] [address] Care Team Providers Name Role Phone Unavailable Primary Care Provider Unavailable Encounter Details Date Type Department Care Team Description 07/01/2016 Hospital Encounter HX [facility] Marie Patel M.D. 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 Body Mass Index - - documented in [...] of this encounter Miscellaneous Notes Miscellaneous - Conversion, Historical Provider Frank - 07/01/2016 11:59 PM MUNITIONS FACTORY WORKER Coding Summary-Paper Based CODING DATE: 07/07/2016 FINAL [place] [facility] STATUS: * Discharged to Home or Self Care PAYOR: Medicare Advantage ADMIT DX: REASON FOR VISIT DX: FINAL DX: PRINCIPAL: Z12.31 Encounter for screening mammogram for malignant neoplasm of breast SECONDARY: PROCEDURES DOCTOR NAME DATE NOTE: The code number assigned matches the documented diagnosis and / or procedure in the patient's chart. However, the narrative phrase printed from the coding software may appear abbreviated, or result in slightly different terminology. Revised Coded By: FELICIA OCONNELL Revised Date Saved: 07/07/2016 03:38 pm [facility] Document Id: [id number] documented in this encounter Plan of Treatment Not on filedocumented as of this encounter Visit Diagnoses Not on filedocumented in this encounter
--- OUTSIDE RECORDS SUMMARY | 2022-04-25 16:00 | XMS_ITS | Encounter Summary ---
:1975 Author Organization [facility] Address [address] [place] [address] Care Team Providers Name Role Phone Unavailable Primary Care Provider Unavailable Encounter Details Date Type Department Care Team Description 06/01/2016 Hospital Encounter [facility] Marsha Henriquez M.D. [address] [place], [place] [address] (Wo rk) Social History [...] - - Height 137 cm (4' 5.94) 06/01/2016 11:20 AM PV DESIGN ENGINEER Body Mass Index - - documented in [...] of this encounter Miscellaneous Notes Miscellaneous - Tasha Henriquez M.D. - 06/02/2016 7:54 AM CST Results Notification From: TASHA HENRIQUEZ MD To: AYDE Penny/[place]/Nandini Team Nurse (RN); Sent: 06/02/2016 07:54:55 PV DESIGN ENGINEER Show up: 06/02/2016 07:55:00 PV DESIGN ENGINEER Subject: Results Notification please forward to inr clinic Results: Date Result Name Ind Value Ref Range 06/01/2016 11:28 PT (H) 17.3 second(s) (8.8 - 11.9) 06/01/2016 11:28 INR (H) 1.6 (0.9 - 1.2) Source: [facility] [employer] Document Id: [id number] Electronically signed by Conversion, [facility] Administrative Clerk [id number] at 11/20/2016 6:59 AM CDT documented in this encounter Plan of Treatment Not on filedocumented as of this encounter Procedures Procedure Name Priority Date/Time Associated Comments Diagnosis PROTHROMBIN TIME Routine 06/01/2016 11:28 Results for this (PT), P AM PV DESIGN ENGINEER procedure are i n the results section. documented in this encounter Results (ABNORMAL) PT (Prothrombin Time) with INR (06/01/2016 11:28 AM PV DESIGN ENGINEER) [facility] Method Time Signature Prothrombin 17.3 (H) 8.8 - 11.9 POWERCHART Time, P [...] Time Location / / Volume Laterality Blood 06/01/2016 11:28 AM PV DESIGN ENGINEER Tasha Henriquez M.D. LAB BLOOD ADD-ON Performing Organization Address City/State/ZIP Code Phon e Number POWERCHART documented in this encounter Visit Diagnoses Not on filedocumented in this encounter
--- OUTSIDE RECORDS SUMMARY | 2022-04-25 16:00 | XMS_ITS | Encounter Summary ---
:1975 Author Organization [facility] Address [address] [place] [address] Care Team Providers Name Role Phone Unavailable Primary Care Provider Unavailable Encounter Details Date Type Department Care Team Description 06/06/2016 Hospital Encounter HX [facility] Marsha Garibay M.D. [address] [place], [place] [address] (Wo rk) Social History [...] - - Height 137 cm (4' 5.94) 06/06/2016 9:38 AM DIVERSIFIED CROPS II FARMWORKER Body Mass Index - - documented in [...] Date/Time Associated Comments Diagnosis PROTHROMBIN TIME Routine 06/06/2016 9:49 AM Resul ts for this (PT), P DIVERSIFIED CROPS II FARMWORKER procedure are i n the results section. documented in this encounter Results (ABNORMAL) PT (Prothrombin Time) with INR (06/06/2016 9:49 AM DIVERSIFIED CROPS II FARMWORKER) [facility] Method Time Signature Prothrombin 14.1 (H) 8.8 - 11.9 POWERCHART Time, P SECONDS INR 1.4 (H) 0.9 - 1.2 POWERCHART Comment: Recommended INR for prophylaxis/treatme nt of Venous Thrombosis, Pulmonary Embolism, Myocardial Infarction, and Embolism from Atrial Fibrillation is 2.0- 3.0 (Standard Therapy) Recommended INR for Mechanical Heart Etjal ves and recurrent Systemic Embolism is 2.5-3.5 (Intensive Therapy) Specimen (Source) Anatomical Collection Method Collection Time Re ceived Time Location / / Volume Laterality Blood 06/06/2016 9:49 AM DIVERSIFIED CROPS II FARMWORKER Sridhar Garibay M.D. LAB BLOOD ADD-ON Performing Organization Address City/State/ZIP Code Phon e Number POWERCHART documented in this encounter Visit Diagnoses Not on filedocumented in this encounter
--- OUTSIDE RECORDS SUMMARY | 2022-04-25 16:00 | XMS_ITS | Encounter Summary ---
:1975 Author Organization [facility] Address [address] [place] [id number] Care Team Providers Name Role Phone Unavailable Primary Care Provider Unavailable Encounter Details Date Type Department Care Team Description 06/18/2016 Hospital Encounter [facility] Stephanie Cabrera, P.A.-C. [address] [place], [place] [address] [phone] (Wo rk) Social History Tobacco Use Types Packs/Day Years Used Date Smoking Tobacco: Never Assessed Sex Assigned at Date Recorded Not on file documented as of this encounter Last Filed Vital Signs Vital Sign Reading Time Taken Comments Blood Pressure 102/64 06/18/2016 10:49 PM SCALE OPERATOR Pulse 70 06/18/2016 10:49 PM SCALE OPERATOR Temperature - - Respiratory Rate 18 06/18/2016 10:49 PM SCALE OPERATOR Oxygen Saturation - - Inhaled Oxygen Concentration - - Weight - - Height 146 cm (4' 9.48) 06/18/2016 10:49 PM SCALE OPERATOR Body Mass Index - - documented in this encounter Discharge Summaries Vitaliy Ellison R.N. - 06/19/2016 12:04 AM CST ED Discharge Instructions [address] [address] Name: DORITA SHEFFIELD Date of : 1975 12:00 AM Visit Date: 06/18/2016 10:34 PM [facility] Number: [id number] Address: [address] [facility] [phone] Primary Care Provider: TASHA HENRIQUEZ MD IMPORTANT: [facility] in [place] would like to thank you for allowing us to assist you with your healthcare needs. The following includes patient education materials and informationregarding your injury/illness. Diagnosis: Blood In Stool Follow-Up Instructions: Your Upcoming Appointments: Date Time Location Provider 06/24/2016 09:00 [facility] Anticoag [facility] Anti Coag 2 Patient Education Materials: Understanding Rectal Bleeding Rectal bleeding is when blood passes through your rectum and anus. It can occur with or without a bowel movement. Rectal bleeding may be a sign of a serious problem in your rectum, colon, or upper GI tract. Call your doctor right away if you have any rectal bleeding. Rectal Bleeding and GI Problems The cause of rectal bleeding may be found in any region of the GI tract. The colon or rectum may be the site of your bleeding problem. Or, bleeding may be due to problems farther up the GI tract, such as in the small intestine, duodenum, or stomach. Causes of Rectal Bleeding ?? Hemorrhoids (swollen veins in the rectum and anus) ?? Fissures (tears in or near the anus) ?? Diverticulosis (inflamed pockets in the colon wall) ?? Infection ?? Ischemia (low blood flow) ?? Radiation damage ?? Inflammatory bowel disease (Crohn's disease or ulcerative colitis) ?? Ulcers in the upper GI tract and inflammation of the large intestine ?? Abnormal tissue growths (tumors or polyps) in the GI tract ?? A bulging rectum (also called a rectal prolapse) ?? Abnormal blood vessels in the small intestine or in the colon Common Symptoms ?? Rectal pain, itching, or soreness ?? Abdominal pain or epigastric pain ?? Minor occasional drops of blood that appear on the stool or toilet paper, to greater amounts of stool that appear black or tarry Rectal bleeding can also occur without pain. ?? [id number] Mara Underwood, [address] [place] [address], [place] [address]. All rights reserved. This information is not intended as a substitute for professional medical care. Always follow your healthcare professional's instructions. Consider Using Patient Online Services Patient Online [...] if you dont have one. Go to [email or web address] and click on Create Your Account. Then, follow the directions to complete the online form. Youll be asked for your [facility] number which you can find at the top of this document. ED Tests and Procedures: Order Status Automated Diff-5 Part Completed CBC (includes Auto Differential) Completed Comprehensive Metabolic Panel Completed Stool Occult BLD X1 Completed PT/INR Completed Discharge Prescriptions & Home Medications: Medication/Strength Dose Route Frequency Indications/Special Instructions/Comments/Notes warfarin (warfarin 2.5 mg oral tablet) See Instructions 5mg Sun, Tues & Thurs, 2.5mg all other days or as directed per INR Clinic as of 06/17/16 *bifidobacterium-lactobacillus (Probiotic Formula) 1 cap(s) Oral once a day 6 warfarin (Coumadin 2 mg oral tablet) See [...] If you have any medications at home not on this list, DO NOT take them until you contact your provider for clarification. Give a copy [...] arrange a ride home with a responsible alliance party. NETTIE Cha CAROLYN MARY , or responsible alliance party have received this information and my questions have been answered. I have discussed any challenges I see with this plan with the nurse or physician. Patient Signature or Responsible Green Party/Relationship Date Time Provider Signature Date Time IMPORTANT: [...] arrange a ride home with a responsible alliance party. NETTIE Cha CAROLYN MARY , or responsible alliance party have received this information and my questions have been answered. I have discussed any challenges I see with this plan with the nurse or physician. Patient Signature or Responsible Green Party/Relationship Date Time Provider Signature Date Time This document has images extracted. Please consider using [employer] for all your patient education needs. Source: NimbusBase Document Id: [id number] E OPERATOR Vitaliy Ellison R.N. - 06/19/2016 12:04 AM CST ED Depart Summary [facility] Emergency Department Clinical Discharge Summary PERSON INFORMATION Name DORITA SHEFFIELD Age 41 Years 1975 12:00 AM Sex Female Language Kenyan PCP TASHA HENRIQUEZ MD Marital Status Single N [id number] Visit Id Visit Reason Rectal bleed; passing blood Specialty Enc Type Emergency Med Service Emergency Medicine Referred by Track Group [facility] ED Discharge 06/18/2016 11:59 PM Tracking Id [id number] Checkout 06/18/2016 11:59 PM Checkin 06/18/2016 10:34 PM Acuity 3 -Urgent Dispo Type * Discharged to Home or Self Care Arrival 06/18/2016 10:34 PM Reg Status LOS 000 01:25 Address: [address] [place] [phone] Comment: PROVIDER INFORMATION Provider Role Provider Contact Time KEVIN CABRERA PA-C ED Provider 06/18/16 22:47 DOMINGUEZ BROWN CELLAR PACKER Nurse 06/18/16 23:02 VITALIY ELLISON CELLAR PACKER Nurse 06/18/16 23:32 DIAGNOSIS Blood In Stool Comment: PATIENT EDUCATION INFORMATION Instructions: Understanding Rectal Bleeding Follow up: Source: [employer] Document Id: [id number] E OPERATOR documented in this encounter Medications at [...] documented as of this encounter ED Notes Vitaliy Ellison R.N. - 06/19/2016 12:03 AM CST ED Disposition Summary ED Disposition Summary Entered On: 06/19/2016 0:03 SCALE OPERATOR Performed On: 06/19/2016 0:03 SCALE OPERATOR by VITALIY ELLISON RN ED Disposition Summary Present in Room During Exam/Procedure : Father, Mother Mode of Discharge : Ambulatory Transportation : Private vehicle Printed Discharge Instructions Given to Patient : Yes Patient Status at Discharge from ED : Improved VITALIY ELLISON RN - 06/19/2016 0:03 SCALE OPERATOR Source: [employer] Document Id: [id number] SCALE OPERATOR!7 E OPERATOR Vitaliy Ellison R.N. - 06/19/2016 12:03 AM CST ED Pain Assessment ED Pain Assessment Entered On: 06/19/2016 0:03 SCALE OPERATOR Performed On: 06/19/2016 0:03 SCALE OPERATOR by VITALIY ELLISON RN Pain Assessment Pain Symptoms : No VITALIY ELLISON RN - 06/19/2016 0:03 SCALE OPERATOR Source: [employer] Document Id: [id number] SCALE OPERATOR!3 E OPERATOR Kevin Cabrera P.A.-C. - 06/18/2016 11:56 PM CST Rectal bleed Patient: DORITA SHEFFIELD Age: 41 years Sex: Female : 1975 Author: KEVIN CABRERA PA-C Attachments: None Associated Diagnosis: Blood In Stool Basic Information Additional information: Chief Complaint from Nursing Triage Note : Chief Complaint Description 06/18/2016 23:00 SCALE OPERATOR Chief Complaint Description See triage note 06/18/2016 22:49 SCALE OPERATOR Chief Complaint Description Patient has been having blood in the stool for the past 2 days . History of Present Illness 41 y/o female c/o blood in her stool this evening. She has history of similar episodes previously for which she underwent colonscopy 2 years ago. That exam was normal. Denies recent trauma, abd pain, N/V/D, painful BM, change in appetite, fever, chills, weight loss. Review of Systems Constitutional symptoms: No fever. Skin symptoms: No rash. Eye symptoms: Vision unchanged. ENMT symptoms: No sore throat. Respiratory symptoms: No shortness of breath or no cough. Cardiovascular symptoms: No chest pain. Gastrointestinal symptoms: Rectal bleeding, but no abdominal pain, no nausea, no vomiting, no diarrhea, no constipation or no rectal pain. Genitourinary symptoms: No dysuria, no hematuria, no vaginal bleeding or no vaginal discharge. Musculoskeletal symptoms: No back pain. Neurologic symptoms: No headache or no dizziness. Additional review of systems information: All other [...] thrombophlebitis of other deep vessels of lower extremities. Surgical history: Laparoscopic cholecystectomy ([id number]) on 06/11/2014 at 39 Years. AV - Atrioventricular valve operation ([id number]) on 03/29/2013 at 38 Years. Comments: 04/05/2013 10:24 - TOOTIE LOPEZ HUMAN RESOURCES SPECIALIST Done at [facility] on 12/04/2012 at 37 Years. Papanicolaou smear taken ([id number]) on 07/19/2010 at 35 Years. I and D, left thigh & leg on 01/15/2000 at 25 Years.. Family history: Thyroid dysfunction Aunt (maternal) Aunt (Maternal) Aneurysm Uncle (Maternal): onset at 64 . Comments: 05/29/2014 12:12 - BELLA NULL MD aortic aneurysm and bulge Aunt (maternal) Comments: 02/08/2016 16:26 - DOUGLAS GUILLAUME LPN Brain CA - Breast cancer Aunt (Maternal): onset at 59 . . Physical Examination Vital Signs: Vital Signs 06/18/2016 22:49 SCALE OPERATOR Temperature Core 37 DegC Peripheral Pulse Rate 70 /min Respiratory Rate 18 /min SpO2 100 % Limb Alert Question No Systolic Blood Pressure 102 mmHg Diastolic Blood Pressure 64 mmHg Mean Arterial Pressure 77 mmHg BP Location Right upper , Measurements 06/18/2016 22:49 SCALE OPERATOR Height 146 cm Height Source Stated Dosing Weight 72.00 kg NA Estimated Weight 72 kg 06/17/2016 9:29 SCALE OPERATOR Height 137 cm , SpO2 06/18/2016 22:49 SCALE OPERATOR SpO2 100 % . General: Alert and no acute distress. Skin: Warm and no rash. Head: Normocephalic and atraumatic. Neck: No JVD. Eye: Pupils are equal, round and reactive to light. Ears, nose, mouth and throat: Tympanic membranes clear, oral mucosa moist and no pharyngeal erythemaor exudate. Cardiovascular: Regular rate and rhythm, No murmur and No edema. Respiratory: Lungs are clear to auscultation, respirations are non-labored, breath sounds are equal and Symmetrical chest wall expansion. Gastrointestinal: Soft, Nontender, Non distended, Normal bowel sounds, No organomegaly, Guarding: Negative, Rebound: Negative and Signs: McBurney's negative, Psoas negative, Reeves's negative, Rovsing's negative. Back: Nontender. Neurological: Alert and oriented to person, place, time, and situation. Psychiatric: Cooperative and appropriate mood & affect. Medical Decision Making Rationale:Pt appears well. Vital signs within acceptable limits. Lab work is unchanged from previousresults. At this time any bleeding is not significant. No jessy bleeding on exam. Discussed the needfor f/u to resolution and the possiblity of repeating the colonscopy if indicated. Parents verbalized understanding of RTER warnings. . Results review:Lab results : Lab View 06/18/2016 23:25 SCALE OPERATOR Hgb 11.5 g/dL LOW Hct 35.5 % WBC 4.6 x10(9)/L RBC 3.73 x10(12)/L LOW MCV 95.2 fL RDW 13.2 % Platelet 145 x10(9)/L LOW Neutro Absolute 3.08 10(9)/L Lymph Absolute 1.08 x10(9)/L [place] Absolute 0.39 x10(9)/L Eos Absolute 0.04 x10(9)/L LOW Baso Absolute 0.02 x10(9)/L PT 24.8 second(s) HI INR 2.2 HI Sodium Lvl 143 mmol/L Potassium Lvl 4.4 mmol/L Chloride 104 mmol/L CO2 27 mmol/L AGAP 12 mmol/L Alkaline Phosphatase 83 U/L Glucose Lvl 96 mg/dL Creatinine 1.11 mg/dL HI EGFR (MDRD) 54 mL/min/1.73m2 LOW EGFR (MDRD) >60 mL/min/1.73m2 BUN 16 mg/dL Calcium Lvl 8.8 mg/dL Protein Total 7.0 g/dL Albumin Lvl 3.5 g/dL AST 20 U/L ALT 17 U/L Bili Total 0.2 mg/dL 06/18/2016 23:10 SCALE OPERATOR Occult Bld Stl I Positive . Impression and Plan Diagnosis Blood In Stool (Discharge, Medical) Plan Patient was given the following educational materials: Understanding Rectal Bleeding. Follow up with: Primary Care Physician, In: 2 day(s). Counseled: Patient. Orders: Launch Orders Patient Care: Discharge ED Patient (Order Processing): 06/18/2016 23:58 SCALE OPERATOR. Electronically Signed By: KEVIN CABRERA PA-C On: 06/19/2016 12:03 AM Modified by and Electronically Signed by: KEVIN CABRERA PA-C On: 06/19/2016 12:03 AM Co-Signed By: ELMIRA ANTONIO MD On: 06/19/2016 09:09 PM Source: [facility] POWERCHART Document Id: [id number]} E OPERATOR Dominguez Brown, RMichaelNMichael - 06/18/2016 11:00 PM CST ED Primary Assessment Document Has Been Updated ED Primary Assessment Entered On: 06/18/2016 23:02 SCALE OPERATOR Performed On: 06/18/2016 23:00 SCALE OPERATOR by DOMINGUEZ BROWN RN Reason For Visit (As Of: 06/18/2016 23:02:13 SCALE OPERATOR) Problems(Active) 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 ) Name of Problem: Atrioventricular canal ; Onset Date:03/26/2013 ; Recorder: TOOTIE LOPEZ LPN; Confirmation: Confirmed ; Classification: Nursing ; Code: 332561972 ; Contributor System: Sonian ; Last Updated: 04/05/2013 10:22 CDT ; Life Cycle Date: 04/05/2013 ; 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: Active ; Responsible Provider: TOOTIE LOPEZ LPN; Vocabulary: SNOMED CT ; Comments: 04/05/2013 10:22 - TOOTIE LOPEZ LPN defect, transitional Cellulitis, NOS (ICD-9-CM :682.9 ) Name of Problem: Cellulitis, NOS ; Recorder: TOOTIE LOPEZ LPN; Confirmation: Confirmed ; Classification: Nursing ; Code: 682.9 ; Contributor System: ZentactChart ;Last Updated: 04/05/2013 10:27 CDT ; Life [...] Nursing ; Code: 453.40 ; Contributor System: PowerChart ; Last Updated: 04/05/2013 10:26 CDT ; Life Cycle Date: 04/05/2013 ; 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: Active ; Responsible Provider: TOOTIE LOPEZ LPN; Vocabulary: ICD-9-CM Gallstone Without Obstruction (ICD-9-CM :574.20 ) Name of Problem: Gallstone Without Obstruction ; Recorder: BELLA NULL MD; Confirmation: Confirmed ; Classification: Medical ; Code: 574.20 ; Contributor System: PowerChart ; Last Updated: 05/29/2014 11:11 SCALE OPERATOR ; 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: Active ; Responsible Provider: BELLA NULL MD; Vocabulary: ICD-9-CM Impaired Fasting Glucose (ICD-9-CM :790.21 ) Name of Problem: Impaired Fasting Glucose ; Onset Date:07/22/2010 ; Confirmation: Confirmed ; Classification: Medical ; Code: 790.21 ; Contributor System: [employer]entactChart ; Last Updated: 06/06/2014 9:13 SCALE OPERATOR ; 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: Active ; Vocabulary: ICD-9-CM ; Co mments: - Impaired fasting glucose Irregular Menstrual Cycle (ICD-9-CM :626.4 ) Name of Problem: Irregular Menstrual Cycle ; Onset Date: 07/28/2010 ; Confirmation: Confirmed ; Classification: Medical ; Code: 626.4 ; Contributor System: [facility]_HX_PR_UPLOAD ; Last Updated: 09/21/2013 19:06 CDT ; 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: Active ; Vocabulary: ICD-9-CM ; Comments: - Irregular menses Mitral valve regurgitation NOS (ICD-9-CM :424.0 ) Name of Problem: Mitral valve regurgitation NOS ; Recorder: TOOTIE LOPEZ LPN; Confirmation: Confirmed ; Classification: Nursing ; Code: 424.0 ; Contributor System: Sonian ; Last Updated: 04/05/2013 10:25 CDT ; Life Cycle Date: 04/05/2013 ; 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: Active ; Responsible Provider: TOOTIE LOPEZ LPN; Vocabulary: ICD-9-CM ; Comments: 04/05/2013 10:25 - TOOTIE LOPEZ LPN unknown date of dx Mixed Hyperlipidemia (ICD-9-CM :272.2 ) Name of Problem: Mixed Hyperlipidemia ; Onset Date: 07/22/2010 ; Confirmation: Confirmed ; Classification: Medical ; Code: 272.2 ; Contributor System: Sonian; Last Updated: 06/06/2014 9:13 SCALE OPERATOR ; 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: Active ; Vocabulary: [...] Merly Solomon ; Last Updated: 06/06/2014 9:13 SCALE OPERATOR ; 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: Active ; Vocabulary: ICD-9-CM ; Comments: - Phlebitis and thrombophlebitis of other deep vessels of lower extremities Primary Hypercoagulable State (ICD-9-CM :289.81 ) Name of Problem: Primary Hypercoagulable State ; Onset Date: 01/29/2008 ; Confirmation: Confirmed ; Classification: Medical ; Code: 289.81 ; Contributor System: [employer]_HX_PR_UPLOAD ; Last Updated: 09/21/2013 19:06 CDT ; 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: Active ; Vocabulary: ICD-9-CM ; Comments: - Protein S deficiency With elevated d-dimer Dr. Anna Riley rec: lifelong coumadin Psoriasis (ICD-9-CM :696.1 ) Name of Problem: Psoriasis ; Recorder: TOOTIE LOPEZ LPN; Confirmation: Confirmed ; Classification: Nursing ; Code: 696.1 ; Contributor System: PowerChart ; Last Updated: 04/05/2013 10:24 CDT ; Life Cycle Date: 04/05/2013 ; 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: Active ; Responsible Provider: TOOTIE LOPEZ LPN; Vocabulary: ICD-9-CM ; Comments: 04/05/2013 10:24 - TOOTIE LOPEZ LPNunknown date of dx Tricuspid valve regurgitation NOS (ICD-9-CM :424.2 ) Name of Problem: Tricuspid valve regurgitation NOS ; Recorder: TOOTIE LOPEZ LPN; Confirmation: Confirmed ; Classification: Nursing ; Code: 424.2 ; Contributor System: PowerChart ; Last Updated: 04/05/2013 10:25 CDT ; Life Cycle Date: 04/05/2013; 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: Active ; Responsible Provider: TOOTIE LOPEZ LPN; Vocabulary: ICD-9-CM ; Comments: 04/05/2013 10:25 - TOOTIE LOPEZ LPN unknown date of dx Trisomy 21 (ICD-10-CM :Q90.9 ) Name of Problem: Trisomy 21 ; Recorder: MARTHA LAZCANO MD; Confirmation: Confirmed ; Classification: Medical ; Code: Q90.9 ; Contributor System: PowerChart ; Last Updated: 02/20/2016 7:48 CDT ; Life Cycle Date: 02/20/2016 ; 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: Active ; Responsible Provider: MARTHA LAZCANO MD; Vocabulary: ICD-10-CM Triage Chief Complaint Description : See triage note Mode of Arrival ED : Private vehicle Track : Medical Languages : Kenyan Treatments Prior to Arrival : None Are you ? : No Is Patient Female and 13-50 no hysterectomy : Yes Status : Patient denies DOMINGUEZ BROWN RN - 06/18/2016 23:00 SCALE OPERATOR Pain Assessment Pain Symptoms : No DOMINGUEZ BROWN RN - 06/18/2016 23:00 SCALE OPERATOR Respiratory Airway : Patent Respirations : Unlabored Respiratory Pattern : Regular DOMINGUEZ BROWN RN - 06/18/2016 23:00 SCALE OPERATOR Cardiovascular Heart Rhythm : Regular Skin Color : Normal for ethnicity Skin Description : Dry Skin Temperature : Warm DOMINGUEZ BROWN RN - 06/18/2016 23:00 SCALE OPERATOR Neurological Last Well Time Known : Not applicable Level of Consciousness : Alert Orientation : Oriented x 3 Characteristics of Speech : Appropriate for age DOMINGUEZ BROWN RN - 06/18/2016 23:00 SCALE OPERATOR ED Psychosocial Affect/Behavior : Calm Domestic Abuse Concerns : None Behavioral Health Screen/Safety Assmt : No DOMINGUEZ BROWN RN - 06/18/2016 23:00 SCALE OPERATOR Gastrointestinal Nutrition ED : Adequate DOMINGUEZ BROWN RN - 06/18/2016 23:00 SCALE OPERATOR Musculoskeletal Fall Prevention Education Provided : DOMINGUEZ BARRAZA RN - 06/18/2016 23:00 SCALE OPERATOR Social Habits Exposure to Tobacco Smoke : Other: never smoker Smoking Status : Never smoker Tobacco 2A : No Tobacco Use/Currently Using : No Tobacco Use/Last 30 Days : No Tobacco Use/Last 12 months : No Alcohol Use for AUDIT tool : Yes DOMINGUEZ BROWN RN - 06/18/2016 23:00 SCALE OPERATOR Alcohol Use Grid Alcohol Use : Yes Frequency : Occasionally DOMINGUEZ BROWN RN - 06/18/2016 23:00 SCALE OPERATOR Recreational Drug Use Grid Drug Use : None DOMINGUEZ BROWN RN - 06/18/2016 23:00 SCALE OPERATOR AUDIT Tool How Often Do You Have A Drink : Monthly or less How Many Drinks in a Day When Drinking : 1 or 2 Six or More Drinks On One Occassion : Never Audit Phase 1 Score : 1 DOMINGUEZ BROWN RN - 06/18/2016 23:00 SCALE OPERATOR Source: [facility] POWERCHART Document Id: [id number] SCALE OPERATOR!54 E OPERATOR Dominguez Brown R.N. - 06/18/2016 10:49 PM CST ED Triage Assessment Document Has Been Updated ED Triage Assessment Entered On: 06/18/2016 23:00 SCALE OPERATOR Performed On: 06/18/2016 22:49 SCALE OPERATOR by DOMINGUEZ BROWN RN Reason For Visit (As Of: 06/18/2016 23:00:50 SCALE OPERATOR) Problems(Active) Atrioventricular canal (SNOMED CT :413081434 ) Name of Problem: Atrioventricular canal ; Onset Date:03/26/2013 ; Recorder: TOOTIE LOPEZ LPN; Confirmation: Confirmed ; Classification: Nursing ; Code: 608792065 ; Contributor System: PowerChart ; Last Updated: [...] Nursing ; Code: 746.5 ; Contributor System: ZentactChart ; Last Updated: 04/05/2013 10:25 CDT ; [...] Nursing ; Code: 453.40 ; Contributor System: PowerChart ; Last Updated: 04/05/2013 10:26 CDT ; Life Cycle Date: 04/05/2013 ; 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: Active ; Responsible Provider: TOOTIE LOPEZ LPN; Vocabulary: ICD-9-CM Gallstone Without Obstruction (ICD-9-CM :574.20 ) Name of Problem: Gallstone Without Obstruction ; Recorder: BELLA NULL MD; Confirmation: Confirmed ; Classification: Medical ; Code: 574.20 ; Contributor System: Sonian ; Last Updated: 05/29/2014 11:11 SCALE OPERATOR ; 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: Active ; Responsible Provider: BELLA NULL MD; Vocabulary: ICD-9-CM Impaired Fasting Glucose (ICD-9-CM :790.21 ) Name of Problem: Impaired Fasting Glucose ; Onset Date:07/22/2010 ; Confirmation: Confirmed ; Classification: Medical ; Code: 790.21 ; Contributor System: ZentactChart ; Last Updated: 06/06/2014 9:13 SCALE OPERATOR ; 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: Active ; Vocabulary: ICD-9-CM ; Co mments: - Impaired fasting glucose Irregular Menstrual Cycle (ICD-9-CM :626.4 ) Name of Problem: Irregular Menstrual Cycle ; Onset Date: 07/28/2010 ; Confirmation: Confirmed ; Classification: Medical ; Code: 626.4 ; Contributor System: [facility]_HX_PR_UPLOAD ; Last Updated: 09/21/2013 19:06 CDT ; 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: Active ; Vocabulary: ICD-9-CM ; Comments: - Irregular menses Mitral valve regurgitation NOS (ICD-9-CM :424.0 ) Name of Problem: Mitral valve regurgitation NOS ; Recorder: TOOTIE LOPEZ LPN; Confirmation: Confirmed ; Classification: Nursing ; Code: 424.0 ; Contributor System: PowerChart ; Last Updated: [...] Medical ; Code: 272.2 ; Contributor System: Sonian; Last Updated: 06/06/2014 9:13 SCALE OPERATOR ; 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: Active ; Vocabulary: ICD-9-CM ; Comments: -Mixed hyperlipidemia Recommend lifestyle changes (diet, exercise, weight loss) Phlebitis and Thrombophlebitis of Other Deep Vessels of Lower Extremities (ICD-9-CM :451.19 ) Name of Problem: Phlebitis and Thrombophlebitis of Other Deep Vessels of Lower Extremities ; Onset Date: 06/08/2007 ; Confirmation: Confirmed ; Classification: Medical ; Code: 451.19 ; Contributor System: Merly Oliviert ; Last Updated: 06/06/2014 9:13 SCALE OPERATOR ; 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: Active ; Vocabulary: ICD-9-CM ; Comments: - Phlebitis and thrombophlebitis of other deep vessels of lower extremities Primary Hypercoagulable State (ICD-9-CM :289.81 ) Name of Problem: Primary Hypercoagulable State ; Onset Date: 01/29/2008 ; Confirmation: Confirmed ; Classification: Medical ; Code: 289.81 ; Contributor System: [facility]_HX_PR_UPLOAD ; Last Updated: 09/21/2013 19:06 CDT ; 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: Active ; Vocabulary: ICD-9-CM ; Comments: - Protein S deficiency With elevated d-dimer Dr. Anna Riley rec: lifelong coumadin Psoriasis (ICD-9-CM :696.1 ) Name of Problem: Psoriasis ; Recorder: TOOTIE LOPEZ LPN; Confirmation: Confirmed ; Classification: Nursing ; Code: 696.1 ; Contributor System: Sonian ; Last Updated: 04/05/2013 10:24 CDT ; [...] Nursing ; Code: 424.2 ; Contributor System: Sonian ; Last Updated: 04/05/2013 10:25 CDT ; Life Cycle Date: 04/05/2013; 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: Active ; Responsible Provider: TOOTIE LOPEZ LPN; Vocabulary: ICD-9-CM ; Comments: 04/05/2013 10:25 - TOOTIE LOPEZ LPN unknown date of dx Trisomy 21 (ICD-10-CM :Q90.9 ) Name of Problem: Trisomy 21 ; Recorder: MARTHA LAZCANO MD; Confirmation: Confirmed ; Classification: Medical ; Code: Q90.9 ; Contributor System: Sonian ; Last Updated: 02/20/2016 7:48 CDT ; Life Cycle Date: 02/20/2016 ; 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: Active ; Responsible Provider: MARTHA LAZCANO MD; Vocabulary: ICD-10-CM Triage Chief Complaint Description : Patient has been having blood in the stool for the past 2 days Information Given By : Patient, Father, Mother Present in Room During Exam/Procedure : Father, Mother Mode of Arrival ED : Private vehicle Track : Medical Languages : Kenyan Vital Signs Assessed : Yes Treatments Prior to Arrival : None Are you ? : No Is Patient Female and 13-50 no hysterectomy : Yes Status : Patient denies DOMINGUEZ BROWN RN - 06/18/2016 22:49 SCALE OPERATOR Vital Signs Temperature Core : 37 DegC(Converted to: 98.6 DegF) Limb Alert Question : No Peripheral Pulse Rate : 70 /min Respiratory Rate : 18 /min Systolic Blood Pressure : 102 mmHg Diastolic Blood Pressure : 64 mmHg NIBP Mean : 77 mmHg BP Location : Right upper extremity SpO2 : 100 % Oxygen Therapy : Room air Height : 146 cm(Converted to: 4 ft 9 inch(es)) Height Source : Stated Estimated Weight : 72 kg Estimated Weight Conversion to Pounds : 158.4 lb DOMINGUEZ BROWN RN - 06/18/2016 22:49 SCALE OPERATOR Pain Assessment Pain Symptoms : No DOMINGUEZ BROWN RN 06/18/2016 22:49 SCALE OPERATOR ED Physician Notification Time ED Physician Notification Time : 06/18/2016 22:59 SCALE OPERATOR DOMINGUEZ BROWN RN - 06/18/2016 22:49 SCALE OPERATOR ИРИНА ИРИНА Level 1 : No ИРИНА Level 2 : No ИРИНА Level 3 : Many Vital Signs ИРИНА : No DOMINGUEZ BROWN RN - 06/18/2016 22:49 SCALE OPERATOR DCP GENERIC CODE Tracking Acuity : 3 -Urgent Tracking Group : [facility] DOMINGUEZ BROWN RN - 06/18/2016 22:49 SCALE OPERATOR Allergy (As Of: 06/18/2016 23:00:51 SCALE OPERATOR) Allergies (Active) Bee Stings Comments: Comment 1: BEES ; Created By: ContributorTexan Hostingsystem, [facility]OSPITALTexan HostingCHARLI_TOBIAS_SYS; Reaction Status: Active ; Category: Environment ; Substance: Bee Stings ; Type: Unknown ; Updated By: Contributor_system, [facility]OSPITALTexan HostingCHARLI_BLAYNEG_SYS; Reviewed Date: 06/18/2016 23:00 SCALE OPERATOR chloramphenicol containing compounds Comments: Comment 1: CHLORAMPHENICOL ; Created By: ContributorTexan Hostingsystem, [facility]OSPITALTexan HostingVENESSAG_SYJavier; Reaction Status: Active ; Category: Drug ; Substance: chloramphenicol containing compounds ; Type: Unknown ; Updated By: ContributorTexan Hostingsystem, [facility]OSPITALTexan HostingUNRULY_SYJavier; Reviewed Date: 06/18/2016 23:00 SCALE OPERATOR quinolone antibiotics Comments: Comment 1: QUINOLONES - ciloxan eye tts ; Created By: ContributorTexan Hostingsystem, [facility]PITALTexan HostingCHARLI_TOBIAS_SYJavier; Reaction Status: Active ; Category: Drug ; Substance: quinolone antibiotics ;Type: Unknown ; Updated By: ContributorTexan Hostingsystem, [facility]ITALTexan HostingCHARLI_TOBIAS_SYS; Reviewed Date: 06/18/2016 23:00 SCALE OPERATOR ID Screen Drug Resistant Organism : No DOMINGUEZ BROWN RN - 06/18/2016 22:49 SCALE OPERATOR Immunizations Immunizations Current : Yes Last Tetanus : Unknown Pneumovac : None Influenza : This year DOMINGUEZ BROWN RN - 06/18/2016 22:49 SCALE OPERATOR Source: [facility] POWERCHART Document Id: [id number] SCALE OPERATOR!47 E OPERATOR documented in this encounter Miscellaneous Notes Miscellaneous - Vitaliy Ellison R.N. - 06/19/2016 12:03 AM CST Valuables/Belongings Valuables/Belongings Entered On: 06/19/2016 0:03 SCALE OPERATOR Performed On: 06/19/2016 0:03 SCALE OPERATOR by VITALIY ELLISON RN Valuables/Belongings Room Orientation/Facility Policy Reviewed : Yes Belongings Sent Home With : home with patient Home Medication Disposition : None brought in with patient VITALIY ELLISON RN - 06/19/2016 0:03 SCALE OPERATOR Source: [facility] Document Id: [id number] SCALE OPERATOR!5 E OPERATOR Miscellaneous - Conversion, Historical Provider Ser - 06/18/2016 11:59 PM SCALE OPERATOR Coding Summary-Paper Based CODING DATE: 06/28/2016 FINAL [place] [facility] STATUS: * Discharged to Home or Self Care PAYOR: Medicare Advantage ADMIT DX: K92.1 Melena REASON FOR VISIT DX: K92.1 Melena FINAL DX: PRINCIPAL: K92.1 Melena SECONDARY: E78.2 Mixed hyperlipidemia Z88.8 Allergy status to other drugs, medicaments and biological substances status Z91.030 Bee allergy status PROCEDURES DOCTOR NAME DATE NOTE: The code number assigned matches the documented diagnosis and / or procedure in the patient's chart. However, the narrative phrase printed from the coding software may appear abbreviated, or result in slightly different terminology. Coded By: SANTOSH BUTLER Date Saved: 06/28/2016 02:34 pm Source: [facility]US[facility] Document Id: [id number] Miscellaneous - Vitaliy Ellison R.N. - 06/18/2016 10:34 PM CST Facility Charge Ticket 2.0 11.0 DX Facility Charge Ticket 2.0 11.0 DX Entered On: 06/19/2016 0:03 SCALE OPERATOR Performed On: 06/18/2016 22:34 SCALE OPERATOR by VITALIY ELLISON RN Facility Charge Ticket 2.0 11.0 DX ED Other Charges : Standard ED Encounter TVL Level Translated RTF : Rectal bleed TVL:3 TVL Level for Facility Charge Ticket : Level 3 Arrival Mode Calc : 1 Mode of Arrival ED : Private vehicle [place] Mode of Arrival Interpreted : Standard [place]x Process Management : None Order Management RTF : Laboratory CBC (includes Auto Differential),06/18/16 23:05,KEVIN CABRERA-C Completed CMP,06/18/16 23:05,KEVIN CABRERA PA-C Completed Stool Occult BLD X1,06/18/16 23:05,KEVIN CABRERA PA-C Completed PT/INR,06/18/16 23:05,KEVIN CABRERA PA-C Completed Automated Diff-5 Part,06/18/16 23:30,KEVIN ACBRERA PA-C Completed Lynx Order Management : Lab tests 30 Minutes Critical Care : No Nursing Notes RTF : Triage Forms ED Triage Assessment,06/18/16 22:49,DOMINGUEZ BROWN RN Nursing Notes ED Primary Assessment,06/18/16 23:00,DOMINGUEZ BROWN RN ED Pain Assessment,06/19/16 00:03,VITALIY ELLISON RN [place] Nursing Assessment : Triage only Lynx Disposition : Discharge Lynx Total Points with Diagnosis Control : 5 Lynx Visit Level : 43376 Level 3 Treatments Prior to Arrival : None VITALIY ELLISON RN - 06/19/2016 0:03 SCALE OPERATOR Source: [facility] POWERCHART Document Id: [id number] SCALE OPERATOR!18 E OPERATOR documented in this encounter Plan of Treatment Not on filedocumented as of this encounter Procedures Procedure Name Priority Date/Time Associated Comments Diagnosis AUTOMATED Routine 06/18/2016 11:25 Results for this DIFFERENTIAL, B PM SCALE OPERATOR procedure ar e in the results section. PROTHROMBIN TIME (PT), Routine 06/18/2016 11:25 R esults for this P PM SCALE 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 CBC WITH DIFFERENTIAL, Routine 06/18/2016 11:25 R esults for this B PM SCALE 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 COMPREHENSIVE Routine 06/18/2016 11:25 Results fo r this METABOLIC PANEL, S/P PM SCALE OPERATOR procedu re are in the results section. POCT HEMOCCULT - Routine 06/18/2016 11:10 Results for this NURSING PM SCALE 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 documented in this encounter Results (ABNORMAL) Automated Differential (06/18/2016 11:25 PM SCALE OPERATOR) [facility] Method Time Signature Absolute 3.08 1.70 - POWERCHART Neutrophils 7.00 109L Lymphocytes 1.08 0.90 - POWERCHART 2.90 X109L Monocytes 0.39 0.30 - POWERCHART 0.90 X109L Eosinophils 0.04 (L) 0.05 - POWERCHART 0.50 X109L Absolute 0.02 0.00 - POWERCHART Basophil 0.30 X109L Specimen Anatomical Collection Method Collection Time Receive d Time (Source) Location / / Volume Laterality Blood 06/18/2016 11:25 06/18/2016 PM SCALE OPERATOR 11:25 PM SCALE OPERATOR Kevin Cabrera P.A.-C. LAB BLOOD ADD-ON Performing Organization Address City/[facility] Code Phon e Number POWERCHART (ABNORMAL) PT (Prothrombin Time) with INR (06/18/2016 11:25 PM SCALE OPERATOR) Patholo gist Method Time Signature Prothrombin 24.8 (H) 8.8 - 11.9 POWERCHART Time, P [...] Time Location / / Volume Laterality Blood 06/18/2016 11:25 PM SCALE OPERATOR Kevin Cabrera P.A.-C. LAB BLOOD ADD-ON Performing Organization Address [facility] Phon e Number POWERCHART (ABNORMAL) CBC with Differential (06/18/2016 11:25 PM SCALE OPERATOR) Analysis Performed At Path logist Time Signature Leukocytes 4.6 3.4 - 10.5 POWERCHART X109L Erythrocytes 3.73 (L) 3.90 - POWERCHART 5.03 P4531A Hemoglobin 11.5 (L) 12.0 - POWERCHART 15.5 GDL Hematocrit 35.5 34.9 - POWERCHART 44.5 MCV 95.2 81.6 - POWERCHART 98.3 FL HX RDW 13.2 11.9 - POWERCHART 15.5 Platelet Count 145 (L) 150 - 450 POWERCHART X109L Specimen (Source) Anatomical Collection Method Collection Time Re ceived Time Location / / Volume Laterality Blood 06/18/2016 11:25 PM SCALE OPERATOR Kevin Cabrera P.A.-C. LAB BLOOD ADD-ON Performing Organization Address City/State/ZIP Code Phon e Number POWERCHART (ABNORMAL) CMP (Comprehensive Metabolic Panel) (06/18/2016 11:25 PM SCALE OPERATOR) [facility] Time Signature Alanine 17 7 - 45 UL POWERCHART Amniotransferase, LD Albumin, S 3.5 3.5 - 5.0 POWERCHART GDL Alkaline 83 37 - 98 POWERCHART Phosphatase, S UL Sodium, S 143 135 - 145 POWERCHART MMOLL Potassium, S 4.4 3.5 - 5.1 POWERCHART MMOLL Chloride, S 104 98 - 107 POWERCHART MMOLL CO2 Total 27 22 - 29 POWERCHART MMOLL BUN (Blood Urea 16 6 - 21 POWERCHART Nitrogen), S MGDL Creatinine 1.11 (H) 0.59 - POWERCHART 1.04 MGDL Calcium, Total, S 8.8 8.6 - POWERCHART 10.3 MGDL Anion Gap 12 10 - 20 POWERCHART MMOLL HXeGFR (MDRD) 54 (L) >=60 POWERCHART [id number] 2 eGFR Black/ >60 >=60 POWERCHART Barbadian [id number] 2 Bilirubin, Total, S 0.2 <=1.2 POWERCHART MGDL Total Protein, S 7.0 6.3 - 7.9 POWERCHART GDL Glucose 96 70 - 139 POWERCHART MGDL Aspartate 20 8 - 43 UL POWERCHART Aminotransferase (AST), S Specimen (Source) Anatomical Collection Method Collection Time Re ceived Time Location / / Volume Laterality Blood 06/18/2016 11:25 PM SCALE OPERATOR Kevin Cabrera P.A.-C. LAB BLOOD ADD-ON Performing Organization Address City/State/ZIP Code Phon e Number POWERCHART Hemmoccult, POCT (nursing) (06/18/2016 11:10 PM SCALE OPERATOR) P athologist Signature HXOccult Bld Positive POWERCHART Stl I Specimen (Source) Anatomical Collection Method Collection Time Re ceived Time Location / / Volume Laterality Stool 06/18/2016 11:10 PM SCALE OPERATOR Kevin Cabrera P.A.-C. LAB POCT ORDERABLES-MANUAL Performing Organization Address City/State/ZIP Code Phon e Number POWERCHART documented in this encounter Visit Diagnoses Not on filedocumented in this encounter
--- OUTSIDE RECORDS SUMMARY | 2022-04-25 16:00 | XMS_ITS | Encounter Summary ---
:1975 Author Organization [facility] Address [address] [place] [address] Care Team Providers Name Role Phone Unavailable Primary Care Provider Unavailable Encounter Details Date Type Department Care Team Description 05/17/2016 Hospital Encounter HX [facility] Marsha Henriquez M.D. [address] [place], [place] [address] (Wo rk) Social History [...] - - Height 137 cm (4' 5.94) 05/17/2016 11:00 AM JUICE SCALEMAN Body Mass Index - - documented in [...] encounter Miscellaneous Notes Miscellaneous - Wali Mcclellan - 05/17/2016 4:54 PM CST Anticoagulation Patient Intake Anticoagulation Patient Intake Entered On: 05/17/2016 16:56 JUICE SCALEMAN Performed On: 05/17/2016 16:54 JUICE SCALEMAN by WALI MCCLELLAN RN Plan INR goal range : 2.0 - 3.0 Duration of Therapy : Lifelong Tablet Size : 2 mg, 5 mg WALI MCCLELLAN RN - 05/17/2016 16:54 JUICE SCALEMAN Anticoagulation Management Plan Grid Date : 09/05/2013 [...] darya BURGESS JM WALI Ervin RN - 05/17/2016 16:54 JUICE SCALEMAN WALI MCCLELLAN RN - 05/17/2016 16:54 JUICE SCALEMAN WALI MCCLELLAN RN - 05/17/2016 16:54 JUICE SCALEMAN WALI MCCLELLAN RN - 05/17/2016 16:54 JUICE SCALEMAN Date : 12/26/2013 CDT 01/30/2014 CDT 03/06/2014 [...] completed by : WALI Davidson RN - 05/17/2016 16:54 JUICE SCALEMAN WALI MCCLELLAN RN - 05/17/2016 16:54 JUICE SCALEMAN WALI MCCLELLAN RN - 05/17/2016 16:54 JUICE SCALEMAN WALI MCCLELLAN RN - 05/17/2016 16:54 JUICE SCALEMAN Date : 03/20/2014 CDT 03/27/2014 CDT 04/10/2014 [...] Other: Plan completed by : darya lackey [facility]/pharmacy WALI MCCLELLAN RN - 05/17/2016 16:54 JUICE SCALEMAN WALI MCCLELLAN RN - 05/17/2016 16:54 JUICE SCALEMAN WALI MCCLELLAN RN - 05/17/2016 16:54 JUICE SCALEMAN WALI MCCLELLAN RN - 05/17/2016 16:54 JUICE SCALEMAN Date : 04/17/2014 CDT 04/24/2014 CDT 05/01/2014 JUICE SCALEMAN 05/15/2014 JUICE SCALEMAN Location of INR sample : Lab Lab [...] will trynoted dose called to mom Fabiola [phone] called to Fabiola/no changes Called to mother/Fabiola, not awareof any changes Recommend Recheck : One week One week Two weeks Two weeks Plan completed by : MARIA GUADALUPE FITCH OZZY WALI ESPINOSA RN - 05/17/2016 16:54 WALI REYNOLDS RN - 05/17/2016 16:54 WALI REYNOLDS RN - 05/17/2016 16:54 WALI REYNOLDS RN - 05/17/2016 16:54 JUICE SCALEMAN Date : 06/03/2014 JUICE SCALEMAN 06/05/2014 JUICE SCALEMAN 06/10/2014 JUICE SCALEMAN 06/11/2014 JUICE SCALEMAN Location of INR sample : Lab Type [...] Called motherFabiola. Hue will be staying in [place] 2wks post-surgery & have INR drawn there. [...] lovenox tomorrow AM as ordered. INR in [place] for next several weeks as pt will be recovering there. Recommend Recheck : Other: depending on Dr. Henriquez's preop. Other: 06/18 Other: 06/13/14 Plan completed by : WALI TYLER RN - 05/17/2016 16:54 JUICE SCALEMAN WALI MCCLELLAN RN - 05/17/2016 16:54 JUICE SCALEMAN WALI MCCLELLAN RN - 05/17/2016 16:54 JUICE SCALEMAN WALI MCCLELLAN RN - 05/17/2016 16:54 JUICE SCALEMAN Date : 06/14/2014 JUICE SCALEMAN 06/14/2014 JUICE SCALEMAN 06/16/2014 JUICE SCALEMAN 06/23/2014 JUICE SCALEMAN Location of INR sample : Clinic Lab Lab Type of Sample : Venous Venous INR Result : 1.3 on 06/13 2.4 faxed from lab 2.0 Warfarin Dose : (pt took 2.5mg 06/13) 5mg Sat and 5mg Sun (06/14 and 06/15) 5mg Mon and 2.5mg all other days 5mg Mon and 2.5mg all other days Total Weekly Warfarin Dose : 20 20 Comment : [place] lab called with INR result from 06/13, reported they left a message with Dr. Henriquez and hadn't heard back, spoke with motherFabiola, and gave doses, continue Lovenox and repeat INR 06/16, message left with INR clinic in [place] to contact Please contact [facility] lab on 06/16 for result and may call Fabiola at [phone] with instructions call to Fabiola/will stop Lovenox injections and take noted dose/pt has an appt here in [place] 06/23 so will do lab appt here that day Called to Fabiola/ Hue will be back at [facility] by next draw. will have done on . no changes to meds/diet. Recommend Recheck : Two days One week Two weeks Plan completed by : WALI Steven LM RN - 05/17/2016 16:54 JUICE SCALEMAN WALI MCCLELLAN RN - 05/17/2016 16:54 JUICE SCALEMAN WALI MCCLELLAN RN - 05/17/2016 16:54 JUICE SCALEMAN WALI MCCLELLAN RN - 05/17/2016 16:54 JUICE SCALEMAN Date : 07/10/2014 JUICE SCALEMAN 07/17/2014 JUICE SCALEMAN 07/31/2014 JUICE SCALEMAN 09/11/2014 CDT Location of INR sample : [...] Two weeks Plan completed by : darya WYLIE ly WALI ROLDAN RN - 05/17/2016 16:54 JUICE SCALEMAN WALI MCCLELLAN RN - 05/17/2016 16:54 JUICE SCALEMAN WALI MCCLELLAN RN - 05/17/2016 16:54 WALI REYNOLDS RN - 05/17/2016 16:54 JUICE SCALEMAN Date : 09/12/2014 CDT 09/25/2014 CDT 10/02/2014 [...] completed by : WALI Almaguer RN - 05/17/2016 16:54 JUICE SCALEMAN WALI MCCLELLAN RN - 05/17/2016 16:54 JUICE SCALEMAN WALI MCCLELLAN RN - 05/17/2016 16:54 JUICE SCALEMAN WALI MCCLELLAN RN - 05/17/2016 16:54 JUICE SCALEMAN Date : 10/23/2014 CDT 11/13/2014 CDT 11/20/2014 [...] is she is 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 Proacta/no bleeding/consult with Quintin/Pharmacy and called Mom with orders Per Meredith Hernandez, no changes, has been drinking some Kiwi Juice, no bleeding/consult with Quintin/Pharmacy Called to mom /Fabiola, no changes, rev'd w/BCarlson/Pharmacy Recommend Recheck : Three weeks One week One week One week Plan completed by : WALI Skinner RN - 05/17/2016 16:54 JUICE SCALEMAN WALI MCCLELLAN RN - 05/17/2016 16:54 JUICE SCALEMAN WALI MCCLELLAN RN - 05/17/2016 16:54 JUICE SCALEMAN WALI MCCLELLAN RN - 05/17/2016 16:54 JUICE SCALEMAN Date : 12/04/2014 CDT 12/18/2014 CDT 01/15/2015 [...] Plan completed by : darya PRECIADO JM WALI ESPINOSA RN - 05/17/2016 16:54 JUICE SCALEMAN WALI MCCLELLAN RN - 05/17/2016 16:54 JUICE SCALEMAN WALI MCCLELLAN RN - 05/17/2016 16:54 JUICE SCALEMAN WALI MCCLELLAN RN - 05/17/2016 16:54 JUICE SCALEMAN Date : 02/05/2015 CDT 02/26/2015 CDT 03/05/2015 [...] completed by : WALI LAWRENCE RN - 05/17/2016 16:54 JUICE SCALEMAN WALI MCCLELLAN RN - 05/17/2016 16:54 WALI REYNOLDS RN - 05/17/2016 16:54 WALI REYNOLDS RN - 05/17/2016 16:54 JUICE SCALEMAN Date : 04/09/2015 CDT 05/07/2015 JUICE SCALEMAN 06/04/2015 JUICE SCALEMAN 07/02/2015 JUICE SCALEMAN Location of INR sample : Lab Lab [...] Other: 5 weeks Plan completed by : darya LERMA JK WALI MCCLELLAN RN - 05/17/2016 16:54 JUICE SCALEMAN WALI MCCLELLAN RN - 05/17/2016 16:54 JUICE SCALEMAN WALI MCCLELLAN RN - 05/17/2016 16:54 WALI REYNOLDS RN - 05/17/2016 16:54 JUICE SCALEMAN Date : 08/06/2015 JUICE SCALEMAN 09/17/2015 CDT 10/29/2015 CDT 11/12/2015 CDT Location [...] completed by : WALI Toussaint RN - 05/17/2016 16:54 JUICE SCALEMAN WALI MCCLELLAN RN - 05/17/2016 16:54 [facility] WALI MCCLELLAN RN - 05/17/2016 16:54 [facility] WALI MCCLELLAN RN - 05/17/2016 16:54 JUICE SCALEMAN Date : 11/19/2015 CDT 12/03/2015 CDT 12/31/2015 [...] completed by : WALI Will RN - 05/17/2016 16:54 [facility] WALI MCCLELLAN RN - 05/17/2016 16:54 [facility] WALI MCCLELLAN RN - 05/17/2016 16:54 JUICE SCALEMAN WALI MCCLELLAN RN - 05/17/2016 16:54 JUICE SCALEMAN Date : 02/19/2016 CDT 02/20/2016 CDT 02/21/2016 [...] Brizuela, Pharm.D. Tyshawn Brizuela, Pharm.D. BAUDILIO, PharmD Elieso Quezada, PharmD. WALI MCCLELLAN RN - 05/17/2016 16:54 JUICE SCALEMAN WALI MCCLELLAN RN - 05/17/2016 16:54 JUICE SCALEMAN WALI MCCLELLAN RN - 05/17/2016 16:54 JUICE SCALEMAN WALI MCCLELLAN RN - 05/17/2016 16:54 JUICE SCALEMAN Date : 02/23/2016 CDT 02/24/2016 CDT 02/25/2016 [...] Quezada, PharmValentina. Eliseo Quezada, PharmD. Tyshawn Brizuela, Pharm.D. Eliseo Quezada, PharmD. WALI MCCLELLAN RN - 05/17/2016 16:54 JUICE SCALEMAN WALI MCCLELLAN RN - 05/17/2016 16:54 JUICE SCALEMAN WALI MCCLELLAN RN - 05/17/2016 16:54 JUICE SCALEMAN WALI MCCLELLAN RN - 05/17/2016 16:54 JUICE SCALEMAN Date : 02/27/2016 CDT 03/01/2016 CDT 03/04/2016 CDT 03/07/2016 CDT Location of INR sample : Hospital [facility] Lab Clinic Type of Sample : Venous Capillary/POC Venous Capillary/POC INR Result : 2.07 2.5 2.2 2.4 Warfarin Dose : 2 mg daily 2mg daily 2.5mg 03/04-03/06 2.5mg Fri,Sat,Sun Total Weekly Warfarin Dose : 14 15.5 Comment : Pt being discharged on Bactrim. Will last picker rx for 2 mg tabs On bactrim 2 days left, has f/u in [place] on Monday. Pt mother states plan to return to [facility] on 03/06. next f/u will be in [...] : WALI Cartagena RN, RN, RN - 05/17/2016 16:54 JUICE SCALEMAN WALI MCCLELLAN RN - 05/17/2016 16:54 WALI REYNOLDS RN - 05/17/2016 16:54 WALI REYNOLDS RN - 05/17/2016 16:54 JUICE SCALEMAN Date : 03/11/2016 CDT 03/16/2016 CDT 03/31/2016 [...] pt will be staying with sister in [facility] next week she will have INR drawn in [place] again called to Fabiola/pt to do next INR at [place] on a ./no changes called to Fabiola/no changes called to Fabiola/Mom,no changes/missed doses Recommend Recheck : Other: 03/16/16 Other: 03/31/16(2 weeks) One month Two weeks Plan completed by : JENIFER PRECIADO ly WALI GUTIERREZ RN - 05/17/2016 16:54 JUICE SCALEMAN WALI MCCLELLAN RN - 05/17/2016 16:54 JUICE SCALEMAN WALI MCCLELLAN RN - 05/17/2016 16:54 JUICE SCALEMAN WALI MCCLELLAN RN - 05/17/2016 16:54 JUICE SCALEMAN Date : 05/11/2016 JUICE SCALEMAN 05/12/2016 JUICE SCALEMAN 05/17/2016 JUICE SCALEMAN Location of INR sample : Other: Drawn in [place] Other: [place] Type of Sample : INR Result : 1.6 2.4 Warfarin Dose : 2.5mg daily 2.5mg daily Total Weekly Warfarin Dose : 17.5 Comment : Per Mom/Fabiola, pt disch from [facility], fell & fx left humerus 05/08, surg 05/09, INR 1.3 on 05/08, 1.5 on 05/09, 1.6 on 05/10 & 1.4 05/11, has had 2.5mg daily since 05/09, going to for INR 05/12 & result to be faxed to us, not on Lovenox rev'd with JimPharmacist,called to mom/Fabiola,she will have it done in again Tues Called to Mom/Fabiola, no changes Recommend Recheck : Other: 05/12/16 Other: 05/17/16 One week Plan completed by : WALI BLANTON RN - 05/17/2016 16:54 JUICE SCALEMAN WALI MCCLELLAN RN - 05/17/2016 16:54 JUICE SCALEMAN WALI MCCLELLAN RN - 05/17/2016 16:54 JUICE SCALEMAN Anticoagulation Assessment / History Visit : Phone management Plan of Care Date : 01/29/2008 CDT Primary Physician Anticoagulation : TASHA HENRIQUEZ MD 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 : DVT Lower, Other: Deep Phlebitis-Leg NEC CHADS2 Score Date : 09/05/2013 CDT WALI MCCLELLAN RN - 05/17/2016 16:54 JUICE SCALEMAN Changes / Problems Changes/Problems Since Last Visit : None Been Scheduled For : None Missed Coumadin Doses : None Change In Intake : None Change In Medication : None Have You Had : None Plans to Travel : No WALI MCCLELLAN RN - 05/17/2016 16:54 JUICE SCALEMAN [facility] POWERCHART Document Id: [id number] JUICE SCALEMAN!718 E SCALEMAN documented in this encounter Plan of Treatment Not on filedocumented as of this encounter Procedures Procedure Name Priority Date/Time Associated Comments Diagnosis PROTHROMBIN TIME Routine 05/17/2016 11:05 Results for this (PT), P AM JUICE SCALEMAN procedure are i n the results section. documented in this encounter Results (ABNORMAL) PT (Prothrombin Time) with INR (05/17/2016 11:05 AM JUICE SCALEMAN) [facility] Method Time Signature Prothrombin 26.6 (H) 8.8 - 11.9 POWERCHART Time, P [...] Time Location / / Volume Laterality Blood 05/17/2016 11:05 AM JUICE SCALEMAN Tasha Henriquez M.D. LAB BLOOD ADD-ON Performing Organization Address City/State/ZIP Code Phon e Number POWERCHART documented in this encounter Visit Diagnoses Not on filedocumented in this encounter
--- OUTSIDE RECORDS SUMMARY | 2022-04-25 16:00 | XMS_ITS | Encounter Summary ---
:[address] [facility] Address [address] [place] [id number] Care Team Providers Name Role Phone Unavailable Primary Care Provider Unavailable Encounter Details Date Type Department Care Team Description 06/10/2016 Hospital Encounter HX [facility] Marsha Garibay M.D. [address] [place], [place] [address] (Wo rk) Social History [...] - - Height 137 cm (4' 5.94) 06/10/2016 9:41 AM COPRA SAMPLER Body Mass Index - - documented in [...] Date/Time Associated Comments Diagnosis PROTHROMBIN TIME Routine 06/10/2016 9:50 AM Resul ts for this (PT), P COPRA SAMPLER procedure are i n the results section. documented in this encounter Results (ABNORMAL) PT (Prothrombin Time) with INR (06/10/2016 9:50 AM COPRA SAMPLER) [facility] Method Time Signature Prothrombin 16.7 (H) 8.8 - 11.9 POWERCHART Time, P [...] Time Location / / Volume Laterality Blood 06/10/2016 9:50 AM COPRA SAMPLER Sridhar Garibay M.D. LAB BLOOD ADD-ON Performing Organization Address City/State/ZIP Code Phon e Number POWERCHART documented in this encounter Visit Diagnoses Not on filedocumented in this encounter
--- OUTSIDE RECORDS SUMMARY | 2022-04-25 16:00 | XMS_ITS | Encounter Summary ---
:1975 Author Organization [facility] Address [address] [place] [id number] Care Team Providers Name Role Phone Unavailable Primary Care Provider Unavailable Encounter Details Date Type Department Care Team Description 07/07/2016 Hospital Encounter HX [facility] Marsha Henriquez M.D. [address] [place], [place] [address] (Wo rk) Social History [...] - - Height 146 cm (4' 9.48) 07/07/2016 7:05 AM LEGAL RECORDS MANAGER Body Mass Index - - documented in [...] Notes Miscellaneous - Meli Campo RViktor - 07/07/2016 9:57 AM CST Anticoagulation Patient Intake Anticoagulation Patient Intake Entered On: 07/07/2016 9:58 LEGAL RECORDS MANAGER Performed On: 07/07/2016 9:57 LEGAL RECORDS MANAGER by MELI CAMPO RN Plan INR goal range : 2.0 - 3.0 Duration of Therapy : Lifelong Tablet Size : 2 mg, 5 mg MELI CAMPO RN - 07/07/2016 9:57 LEGAL RECORDS MANAGER Anticoagulation Management Plan Grid Date : 09/05/2013 [...] darya BURGESS JM MELI Carroll RN - 07/07/2016 9:57 LEGAL RECORDS MANAGER MELI CAMPO RN - 07/07/2016 9:57 LEGAL RECORDS MANAGER MELI CAMPO RN - 07/07/2016 9:57 LEGAL RECORDS MANAGER MELI CAMPO RN - 07/07/2016 9:57 LEGAL RECORDS MANAGER Date : 12/26/2013 CDT 01/30/2014 CDT 03/06/2014 [...] completed by : MELI Pradhan RN - 07/07/2016 9:57 LEGAL RECORDS MANAGER MELI CAMPO RN - 07/07/2016 9:57 LEGAL RECORDS MANAGER MELI CAMPO RN - 07/07/2016 9:57 LEGAL RECORDS MANAGER MELI CAMPO RN - 07/07/2016 9:57 LEGAL RECORDS MANAGER Date : 03/20/2014 CDT 03/27/2014 CDT 04/10/2014 [...] K per Dr. Duarte. dose consultwith [facility]/Pharmacy. instructed to be seen if bleeding occurs. called mom, Recommend Recheck : One week Two weeks Two days One day, Other: Plan completed by : darya lackey [facility]/pharmacy MELI CAMPO RN - 07/07/2016 9:57 LEGAL RECORDS MANAGER MELI CAMPO RN - 07/07/2016 9:57 LEGAL RECORDS MANAGER MELI CAMPO RN - 07/07/2016 9:57 LEGAL RECORDS MANAGER MELI CAMPO RN - 07/07/2016 9:57 LEGAL RECORDS MANAGER Date : 04/17/2014 CDT 04/24/2014 CDT 05/01/2014 LEGAL RECORDS MANAGER 05/15/2014 LEGAL RECORDS MANAGER Location of INR sample : Lab Lab [...] will trynoted dose called to mom Fabiola [phone] called to Fabiola/no changes Called to mother/Fabiola, not awareof any changes Recommend Recheck : One week One week Two weeks Two weeks Plan completed by : MARIA GUADALUPE FITCH OZZY MELI COTA RN - 07/07/2016 9:57 LEGAL RECORDS MANAGER MELI CAMPO RN - 07/07/2016 9:57 LEGAL RECORDS MANAGER MELI ACMPO RN - 07/07/2016 9:57 MELI ROJO RN - 07/07/2016 9:57 LEGAL RECORDS MANAGER Date : 06/03/2014 LEGAL RECORDS MANAGER 06/05/2014 LEGAL RECORDS MANAGER 06/10/2014 LEGAL RECORDS MANAGER 06/11/2014 LEGAL RECORDS MANAGER Location of INR sample : Lab Type [...] Called motherFabiola. Hue will be staying in [place] 2wks post-surgery & have INR drawn there. [...] lovenox tomorrow AM as ordered. INR in [place] for next several weeks as pt will be recovering there. Recommend Recheck : Other: depending on Dr. Henriquez's preop. Other: 06/18 Other: 06/13/14 Plan completed by : MELI ROSADO RN - 07/07/2016 9:57 LEGAL RECORDS MANAGER MELI CAMPO RN - 07/07/2016 9:57 LEGAL RECORDS MANAGER MELI CAMPO RN - 07/07/2016 9:57 LEGAL RECORDS MANAGER MELI CAMPO RN - 07/07/2016 9:57 LEGAL RECORDS MANAGER Date : 06/14/2014 LEGAL RECORDS MANAGER 06/14/2014 LEGAL RECORDS MANAGER 06/16/2014 LEGAL RECORDS MANAGER 06/23/2014 LEGAL RECORDS MANAGER Location of INR sample : Clinic Lab Lab Type of Sample : Venous Venous INR Result : 1.3 on 06/13 2.4 faxed from lab 2.0 Warfarin Dose : (pt took 2.5mg 06/13) 5mg Sat and 5mg Sun (06/14 and 06/15) 5mg Mon and 2.5mg all other days 5mg Mon and 2.5mg all other days Total Weekly Warfarin Dose : 20 20 Comment : [place] lab called with INR result from 06/13, reported they left a message with Dr. Henriquez and hadn't heard back, spoke with motherFabiola, and gave doses, continue Lovenox and repeat INR 06/16, message left with INR clinic in [place] to contact [facility] Please contact [facility] lab on 06/16 for result and may call Fabiola at [phone] with instructions call to Fbaiola/will stop Lovenox injections and take noted dose/pt has an appt here in 06/23 so will do lab appt here that day Called to Fabiola/ Hue will be back at [facility] by next draw. will have done on . no changes to meds/diet. Recommend Recheck : Two days One week Two weeks Plan completed by : MELI Vazquez LM RN - 07/07/2016 9:57 LEGAL RECORDS MANAGER MELI CAMPO RN - 07/07/2016 9:57 LEGAL RECORDS MANAGER MELI CAMPO RN - 07/07/2016 9:57 LEGAL RECORDS MANAGER MELI CAMPO RN - 07/07/2016 9:57 LEGAL RECORDS MANAGER Date : 07/10/2014 LEGAL RECORDS MANAGER 07/17/2014 LEGAL RECORDS MANAGER 07/31/2014 LEGAL RECORDS MANAGER 09/11/2014 CDT Location of INR sample : [...] completed by : MELI Rubi RN - 07/07/2016 9:57 LEGAL RECORDS MANAGER MELI CAMPO RN - 07/07/2016 9:57 LEGAL RECORDS MANAGER MELI CAMPO RN - 07/07/2016 9:57 LEGAL RECORDS MANAGER MELI CAMPO RN - 07/07/2016 9:57 LEGAL RECORDS MANAGER Date : 09/12/2014 CDT 09/25/2014 CDT 10/02/2014 [...] completed by : MELI Owen RN - 07/07/2016 9:57 LEGAL RECORDS MANAGER MELI CAMPO RN - 07/07/2016 9:57 LEGAL RECORDS MANAGER MELI CAMPO RN - 07/07/2016 9:57 LEGAL RECORDS MANAGER MELI CAMPO RN - 07/07/2016 9:57 LEGAL RECORDS MANAGER Date : 10/23/2014 CDT 11/13/2014 CDT 11/20/2014 [...] is she is 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 [employer]/no bleeding/consult with Quintin/Pharmacy and called Mom with orders Per Meredith Hernandez, no changes, has been drinking some Kiwi Juice, no bleeding/consult with [facility]/Pharmacy Called to mom /Fabiola, no changes, rev'd w/[place]/Pharmacy Recommend Recheck : Three weeks One week One week One week Plan completed by : MELI Bailey RN - 07/07/2016 9:57 LEGAL RECORDS MANAGER MELI CAMPO RN - 07/07/2016 9:57 LEGAL RECORDS MANAGER MELI CAMPO RN - 07/07/2016 9:57 LEGAL RECORDS MANAGER MELI CAMPO RN - 07/07/2016 9:57 LEGAL RECORDS MANAGER Date : 12/04/2014 CDT 12/18/2014 CDT 01/15/2015 [...] completed by : MELI Shirley RN - 07/07/2016 9:57 LEGAL RECORDS MANAGER MELI CAMPO RN - 07/07/2016 9:57 LEGAL RECORDS MANAGER MELI CAMPO RN - 07/07/2016 9:57 LEGAL RECORDS MANAGER MELI CAMPO RN - 07/07/2016 9:57 LEGAL RECORDS MANAGER Date : 02/05/2015 CDT 02/26/2015 CDT 03/05/2015 [...] completed by : MELI CAMPOS RN - 07/07/2016 9:57 LEGAL RECORDS MANAGER MELI CAMPO RN - 07/07/2016 9:57 LEGAL RECORDS MANAGER MELI CAMPO RN - 07/07/2016 9:57 LEGAL RECORDS MANAGER MELI CAMPO RN - 07/07/2016 9:57 LEGAL RECORDS MANAGER Date : 04/09/2015 CDT 05/07/2015 LEGAL RECORDS MANAGER 06/04/2015 LEGAL RECORDS MANAGER 07/02/2015 LEGAL RECORDS MANAGER Location of INR sample : Lab Lab [...] 5 weeks Plan completed by : darya BoyceK MELI CAMPO RN - 07/07/2016 9:57 LEGAL RECORDS MANAGER MELI CAMPO RN - 07/07/2016 9:57 LEGAL RECORDS MANAGER MELI CAMPO RN - 07/07/2016 9:57 LEGAL RECORDS MANAGER MELI CAMPO RN - 07/07/2016 9:57 LEGAL RECORDS MANAGER Date : 08/06/2015 LEGAL RECORDS MANAGER 09/17/2015 CDT 10/29/2015 CDT 11/12/2015 CDT Location [...] completed by : MELI Edwards RN - 07/07/2016 9:57 LEGAL RECORDS MANAGER MELI CAMPO RN - 07/07/2016 9:57 LEGAL RECORDS MANAGER MELI CAMPO RN - 07/07/2016 9:57 LEGAL RECORDS MANAGER MELI CAMPO RN - 07/07/2016 9:57 LEGAL RECORDS MANAGER Date : 11/19/2015 CDT 12/03/2015 CDT 12/31/2015 [...] completed by : MELI Pickett RN - 07/07/2016 9:57 LEGAL RECORDS MANAGER MELI CAMPO RN - 07/07/2016 9:57 LEGAL RECORDS MANAGER MELI CAMPO RN - 07/07/2016 9:57 LEGAL RECORDS MANAGER MELI CAMPO RN - 07/07/2016 9:57 LEGAL RECORDS MANAGER Date : 02/19/2016 CDT 02/20/2016 CDT 02/21/2016 CDT 02/22/2016 CDT Location of INR sample : [facility] Type of Sample : Venous [...] completed by : Tyshawn Brizuela, Pharm.DMichael Brizuela PharmMichaelD. BAUDILIO, PharmD Eliseo Quezada, ReaD. JAVIER MELI Simmons RN - 07/07/2016 9:57 LEGAL RECORDS MANAGER MELI CAMPO RN - 07/07/2016 9:57 LEGAL RECORDS MANAGER MELI CAMPO RN - 07/07/2016 9:57 LEGAL RECORDS MANAGER MELI CAMPO RN - 07/07/2016 9:57 LEGAL RECORDS MANAGER Date : 02/23/2016 CDT 02/24/2016 CDT 02/25/2016 [...] PharmD. Tyshawn Brizuela, Pharm.D. Eliseo Quezada, PharmD. MELI CAMPO RN - 07/07/2016 9:57 LEGAL RECORDS MANAGER MELI CAMPO RN - 07/07/2016 9:57 LEGAL RECORDS MANAGER MELI CAMPO RN - 07/07/2016 9:57 LEGAL RECORDS MANAGER MELI CAMPO RN - 07/07/2016 9:57 LEGAL RECORDS MANAGER Date : 02/27/2016 CDT 03/01/2016 CDT 03/04/2016 CDT 03/07/2016 CDT Location of [facility] Type of Sample : Venous Capillary/POC Venous Capillary/POC INR Result : 2.07 2.5 2.2 2.4 Warfarin Dose : 2 mg daily 2mg daily 2.5mg 03/04-03/06 2.5mg Mon,Sat,Sun Total Weekly Warfarin Dose : 14 15.5 Comment : Pt being discharged on Bactrim. Will pick up man rx for 2 mg tabs On bactrim 2 days left, has f/u in [place] on Monday. Pt mother states plan to return to [facility] on 03/06. next f[place]u [place] be [place]. 2mg TuWTh Rev'd with Jelly/Pharmacist,called to mom/Fabiola pt done with [facility] Henriquez today pt is going back to [place] with mom for another 1-2wks,she would like INR checked in [place] but [place] INR Clinic to follow will send msg to INR Clinic Stay on 2.5mg daily Recommend Recheck : Three days Three days, Other: in [place] Other: 03/07/16 Other: 4 days Plan completed by : MELI Bone RN, RN, RN - 07/07/2016 9:57 LEGAL RECORDS MANAGER MELI CAMPO RN - 07/07/2016 9:57 LEGAL RECORDS MANAGER MELI CAMPO RN - 07/07/2016 9:57 LEGAL RECORDS MANAGER MELI CAMPO RN - 07/07/2016 9:57 LEGAL RECORDS MANAGER Date : 03/11/2016 CDT 03/16/2016 CDT 03/31/2016 [...] pt will be staying with sister in [facility] next week she will have INR drawn in [place] again called to Fabiola/pt to do next INR at [facility] on a ./no changes called to Fabiola/no changes called to Fabiola/Mom,no changes/missed doses Recommend Recheck : Other: 03/16/16 Other: 03/31/16(2 weeks) One month Two weeks Plan completed by : MELI Lorenzana RN - 07/07/2016 9:57 LEGAL RECORDS MANAGER MELI CAMPO RN - 07/07/2016 9:57 LEGAL RECORDS MANAGER MELI CAMPO RN - 07/07/2016 9:57 MELI ROJO RN - 07/07/2016 9:57 LEGAL RECORDS MANAGER Date : 05/11/2016 LEGAL RECORDS MANAGER 05/12/2016 LEGAL RECORDS MANAGER 05/17/2016 LEGAL RECORDS MANAGER 05/24/2016 LEGAL RECORDS MANAGER Location of INR sample : Other: Drawn in [place] Other: [place] Other: [place] Type of Sample : INR Result : 1.6 2.4 1.8 Warfarin Dose : 2.5mg daily 2.5mg daily 5mg 05/24 then 2.5mg daily Total Weekly Warfarin Dose : 17.5 Comment : Per Mom/Fabiola, pt disch from [facility], fell & fx left humerus 05/08, surg [...] completed by : MELI ODEN RN - 07/07/2016 9:57 LEGAL RECORDS MANAGER MELI CAMPO RN - 07/07/2016 9:57 LEGAL RECORDS MANAGER MELI CAMPO RN - 07/07/2016 9:57 MELI ROJO RN - 07/07/2016 9:57 LEGAL RECORDS MANAGER Date : 06/01/2016 LEGAL RECORDS MANAGER 06/06/2016 LEGAL RECORDS MANAGER 06/10/2016 LEGAL RECORDS MANAGER 06/13/2016 LEGAL RECORDS MANAGER Location of INR sample : Other: [place] Other: [facility] Other: [facility] Type of Sample : INR [...] completed by : MELI Wiggins RN - 07/07/2016 9:57 LEGAL RECORDS MANAGER MELI CAMPO RN - 07/07/2016 9:57 LEGAL RECORDS MANAGER MELI CAPMO RN - 07/07/2016 9:57 LEGAL RECORDS MANAGER MELI CAMPO RN - 07/07/2016 9:57 LEGAL RECORDS MANAGER Date : 06/17/2016 LEGAL RECORDS MANAGER 06/24/2016 LEGAL RECORDS MANAGER 07/07/2016 LEGAL RECORDS MANAGER Location of INR sample : Other: [facility] CF Other: [facility] CF Lab Type of Sample : Venous INR Result : 2.7 2.4 2.5 Warfarin Dose : 5mg Sun, Tues & Thurs, 2.5mg all other days 5mg Sun, Tues & Thurs, 2.5mg allother days 5mg Sun,Tues,Thurs and 2.5mg all other days Total Weekly Warfarin Dose : 25 25 25 Comment : Called to Mom/Fabiola, no changes, rev'd w/[place]/Pharmacy, will try noted dose, [place]23 Called to Mom/Fabiola, no changes, will be back in [place] for next INR left msg for mom/Fabiola,call if changes/?'s Recommend Recheck : One week Other: 07/07/16 Three weeks Plan completed by : MELI JADE RN - 07/07/2016 9:57 LEGAL RECORDS MANAGER MELI CAMPO RN - 07/07/2016 9:57 LEGAL RECORDS MANAGER MELI CAMPO RN - 07/07/2016 9:57 LEGAL RECORDS MANAGER Anticoagulation Assessment / History Visit : Phone management Plan of Care Date : 01/29/2008 CDT Primary Physician Anticoagulation : TASHA HENRIQUEZ MD 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 - 07/07/2016 9:17 AM CST Results Notification From: MELI CAMPO RN ( Anticoagulation Nurse) To: Anticoagulation Nurse; Sent: 07/07/2016 09:17:50 LEGAL RECORDS MANAGER Show up: 07/07/2016 09:18:00 LEGAL RECORDS MANAGER Subject: Results Notification Results: Date Result Name Value Ref Range 07/07/2016 08:03 PT 27.7 second(s) (8.8 - 11.9) 07/07/2016 08:03 INR 2.5 (0.9 - 1.2) Source: [facility] Plan [employer] Media Document Id: [id number] documented in this encounter Plan of Treatment Not on filedocumented as of this encounter Procedures Procedure Name Priority Date/Time Associated Comments Diagnosis PROTHROMBIN TIME Routine 07/07/2016 8:03 AM Resul ts for this (PT), P LEGAL RECORDS MANAGER procedure are i n the results section. documented in this encounter Results (ABNORMAL) PT (Prothrombin Time) with INR (07/07/2016 8:03 AM LEGAL RECORDS MANAGER) [facility] Method Time Signature Prothrombin 27.7 (H) 8.8 - 11.9 POWERCHART Time, P [...] Time Location / / Volume Laterality Blood 07/07/2016 8:03 AM LEGAL RECORDS MANAGER Tasha Henriquez M.D. LAB BLOOD ADD-ON Performing Organization Address City/State/ZIP Code Phon e Number POWERCHART documented in this encounter Visit Diagnoses Not on filedocumented in this encounter
--- OUTSIDE RECORDS SUMMARY | 2022-04-25 16:00 | XMS_ITS | Encounter Summary ---
:1975 Author Organization [facility] Address [address] [place] [address] Care Team Providers Name Role Phone Unavailable Primary Care Provider Unavailable Encounter Details Date Type Department Care Team Description 06/24/2016 Hospital Encounter HX [facility] Marsha Henriquze M.D. [address] [place], [place] [address] (Wo rk) Social History [...] - - Height 146 cm (4' 9.48) 06/24/2016 9:35 AM MENTAL RETARDATION AIDE Body Mass Index - - documented in [...] Miscellaneous Notes Miscellaneous - Wali Mcclellan - 06/24/2016 4:14 PM CST Anticoagulation Patient Intake Anticoagulation Patient Intake Entered On: 06/24/2016 16:16 MENTAL RETARDATION AIDE Performed On: 06/24/2016 16:14 MENTAL RETARDATION AIDE by WALI MCCLELLAN RN Plan INR goal range : 2.0 - 3.0 Duration of Therapy : Lifelong Tablet Size : 2 mg, 5 mg WALI MCCLELLAN RN - 06/24/2016 16:14 MENTAL RETARDATION AIDE Anticoagulation Management Plan Grid Date : 09/05/2013 [...] Two weeks Plan completed by : WALI Tracy RN - 06/24/2016 16:14 MENTAL RETARDATION AIDE WALI MCCLELLAN RN - 06/24/2016 16:14 MENTAL RETARDATION AIDE WALI MCCLELLAN RN - 06/24/2016 16:14 MENTAL RETARDATION AIDE WALI MCCLELLAN RN - 06/24/2016 16:14 MENTAL RETARDATION AIDE Date : 12/26/2013 CDT 01/30/2014 CDT 03/06/2014 [...] completed by : WALI Davidson RN - 06/24/2016 16:14 MENTAL RETARDATION AIDE WALI MCCLELLAN RN - 06/24/2016 16:14 WALI REYNOLDS RN - 06/24/2016 16:14 WALI REYNOLDS RN - 06/24/2016 16:14 MENTAL RETARDATION AIDE Date : 03/20/2014 CDT 03/27/2014 CDT 04/10/2014 [...] by : darya lackey [facility]/pharmacy WALI MCCLELLAN RN - 06/24/2016 16:14 MENTAL RETARDATION AIDE AWLI MCCLELLAN RN - 06/24/2016 16:14 WALI REYNOLDS RN - 06/24/2016 16:14 WALI REYNOLDS RN - 06/24/2016 16:14 MENTAL RETARDATION AIDE Date : 04/17/2014 CDT 04/24/2014 CDT 05/01/2014 MENTAL RETARDATION AIDE 05/15/2014 MENTAL RETARDATION AIDE Location of INR sample : Lab Lab [...] will trynoted dose called to mom Fabiola [phone] called to Fabiola/no changes Called to mother/Fabiola, not awareof any changes Recommend Recheck : One week One week Two weeks Two weeks Plan completed by : MARIA GUADALUPE FITCH OZZY WALI ESPINOSA RN - 06/24/2016 16:14 WALI REYNOLDS RN - 06/24/2016 16:14 WALI REYNOLDS RN - 06/24/2016 16:14 WALI REYNOLDS RN - 06/24/2016 16:14 MENTAL RETARDATION AIDE Date : 06/03/2014 MENTAL RETARDATION AIDE 06/05/2014 MENTAL RETARDATION AIDE 06/10/2014 MENTAL RETARDATION AIDE 06/11/2014 MENTAL RETARDATION AIDE Location of INR sample : Lab Type [...] Called motherFabiola. Hue will be staying in [place] 2wks post-surgery & have INR drawn there. [...] lovenox tomorrow AM as ordered. INR in [place] for next several weeks as pt will be recovering there. Recommend Recheck : Other: depending on Dr. Henriquez's preop. Other: 06/18 Other: 06/13/14 Plan completed by : WALI TYLER RN - 06/24/2016 16:14 MENTAL RETARDATION AIDE WALI MCCLELLAN RN - 06/24/2016 16:14 MENTAL RETARDATION AIDE WALI MCCLELLAN RN - 06/24/2016 16:14 WALI REYNOLDS RN - 06/24/2016 16:14 MENTAL RETARDATION AIDE Date : 06/14/2014 MENTAL RETARDATION AIDE 06/14/2014 MENTAL RETARDATION AIDE 06/16/2014 MENTAL RETARDATION AIDE 06/23/2014 MENTAL RETARDATION AIDE Location of INR sample : Clinic Lab Lab Type of Sample : Venous Venous INR Result : 1.3 on 06/13 2.4 faxed from lab 2.0 Warfarin Dose : (pt took 2.5mg 06/13) 5mg Sat and 5mg Sun (06/14 and 06/15) 5mg Mon and 2.5mg all other days 5mg Mon and 2.5mg all other days Total Weekly Warfarin Dose : 20 20 Comment : [place] lab called with INR result from 06/13, reported they left a message with Dr. Henriquez and hadn't heard back, spoke with motherFabiola, and gave doses, continue Lovenox and repeat INR 06/16, message left with INR clinic in [place] to contact Please contact [employer] lab on 06/16 for result and may call Fabiola at [phone] with instructions call to Fabiola/will stop Lovenox injections and take noted dose/pt has an appt here in 06/23 so will do lab appt here that day Called to Fabiola/ Hue will be back at [facility] by next draw. will have done on . no changes to meds/diet. Recommend Recheck : Two days One week Two weeks Plan completed by : WALI Steven LM RN - 06/24/2016 16:14 MENTAL RETARDATION AIDE WALI MCCLELLAN RN - 06/24/2016 16:14 WALI REYNOLDS RN - 06/24/2016 16:14 WALI REYNOLDS RN - 06/24/2016 16:14 MENTAL RETARDATION AIDE Date : 07/10/2014 MENTAL RETARDATION AIDE 07/17/2014 MENTAL RETARDATION AIDE 07/31/2014 MENTAL RETARDATION AIDE 09/11/2014 CDT Location of INR sample : [...] darya WYLIE ly WALI ROLDAN RN - 06/24/2016 16:14 MENTAL RETARDATION AIDE WALI MCCLELLNA RN - 06/24/2016 16:14 WALI REYNOLDS RN - 06/24/2016 16:14 WALI REYNOLDS RN - 06/24/2016 16:14 MENTAL RETARDATION AIDE Date : 09/12/2014 CDT 09/25/2014 CDT 10/02/2014 [...] completed by : WALI Almaguer RN - 06/24/2016 16:14 MENTAL RETARDATION AIDE WALI MCCLELLAN RN - 06/24/2016 16:14 MENTAL RETARDATION AIDE WALI MCCLELLAN RN - 06/24/2016 16:14 MENTAL RETARDATION AIDE WALI MCCLELLAN RN - 06/24/2016 16:14 MENTAL RETARDATION AIDE Date : 10/23/2014 CDT 11/13/2014 CDT 11/20/2014 [...] is she is 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 [employer]/no bleeding/consult with Quint[facility]/Pharmacy and called Mom with orders Per Meredith Hernandez, no changes, has been drinking some Kiwi Juice, no bleeding/consult with [facility]/Pharmacy Called to mom /Fabiola, no changes, rev'd w/[place]/Pharmacy Recommend Recheck : Three weeks One week One week One week Plan completed by : WALI Skinner RN - 06/24/2016 16:14 MENTAL RETARDATION AIDE WALI MCCLELLAN RN - 06/24/2016 16:14 MENTAL RETARDATION AIDE WALI MCCLELLAN RN - 06/24/2016 16:14 MENTAL RETARDATION AIDE WALI MCCLELLAN RN - 06/24/2016 16:14 MENTAL RETARDATION AIDE Date : 12/04/2014 CDT 12/18/2014 CDT 01/15/2015 [...] completed by : WALI Cabrera RN - 06/24/2016 16:14 MENTAL RETARDATION AIDE WALI MCCLELLAN RN - 06/24/2016 16:14 MENTAL RETARDATION AIDE WALI MCCLELLAN RN - 06/24/2016 16:14 MENTAL RETARDATION AIDE WALI MCCLELLAN RN - 06/24/2016 16:14 MENTAL RETARDATION AIDE Date : 02/05/2015 CDT 02/26/2015 CDT 03/05/2015 [...] completed by : WALI LAWRENCE RN - 06/24/2016 16:14 MENTAL RETARDATION AIDE WALI MCCLELLAN RN - 06/24/2016 16:14 WALI REYNOLDS RN - 06/24/2016 16:14 WALI REYNOLDS RN - 06/24/2016 16:14 MENTAL RETARDATION AIDE Date : 04/09/2015 CDT 05/07/2015 MENTAL RETARDATION AIDE 06/04/2015 MENTAL RETARDATION AIDE 07/02/2015 MENTAL RETARDATION AIDE Location of INR sample : Lab Lab [...] weeks Plan completed by : darya BoyceK WALI MCCLELLAN RN - 06/24/2016 16:14 MENTAL RETARDATION AIDE WALI MCCLELLAN RN - 06/24/2016 16:14 MENTAL RETARDATION AIDE WALI MCCLELLAN RN - 06/24/2016 16:14 WALI REYNOLDS RN - 06/24/2016 16:14 MENTAL RETARDATION AIDE Date : 08/06/2015 MENTAL RETARDATION AIDE 09/17/2015 CDT 10/29/2015 CDT 11/12/2015 CDT Location [...] completed by : WALI Toussaint RN - 06/24/2016 16:14 [facility] WALI MCCLELLAN RN - 06/24/2016 16:14 [facility] WALI MCCLELLAN RN - 06/24/2016 16:14 MENTAL RETARDATION AIDE WALI MCCLELLAN RN - 06/24/2016 16:14 MENTAL RETARDATION AIDE Date : 11/19/2015 CDT 12/03/2015 CDT 12/31/2015 [...] completed by : WALI Will RN - 06/24/2016 16:14 [facility] WALI MCCLELLAN RN - 06/24/2016 16:14 [facility] WALI MCCLELLAN RN - 06/24/2016 16:14 [facility] WALI MCCLELLAN RN - 06/24/2016 16:14 MENTAL RETARDATION AIDE Date : 02/19/2016 CDT 02/20/2016 CDT 02/21/2016 [...] Brizuela, Pharm.D. BAUDILIO, PharmD Eliseo Quezada, PharmD. WALI MCCLELLAN RN - 06/24/2016 16:14 MENTAL RETARDATION AIDE WALI MCCLLELAN RN - 06/24/2016 16:14 [facility] WALI MCCLELLAN RN - 06/24/2016 16:14 MENTAL RETARDATION AIDE WALI MCCLELLAN RN - 06/24/2016 16:14 MENTAL RETARDATION AIDE Date : 02/23/2016 CDT 02/24/2016 CDT 02/25/2016 [...] Eliseo Quezada, PharmD. WALI MCCLELLAN RN - 06/24/2016 16:14 [facility] WALI MCCLELLAN RN - 06/24/2016 16:14 [facility] WALI MCCLELLAN RN - 06/24/2016 16:14 [facility] WALI MCCLELLAN RN - 06/24/2016 16:14 MENTAL RETARDATION AIDE Date : 02/27/2016 CDT 03/01/2016 CDT 03/04/2016 CDT 03/07/2016 CDT Location of INR sample : [facility] Type of Sample : Venous Capillary/POC Venous Capillary/POC INR Result : 2.07 2.5 2.2 2.4 Warfarin Dose : 2 mg daily 2mg daily 2.5mg 03/04-03/06 2.5mg Fri,Sat,Sun Total Weekly Warfarin Dose : 14 15.5 Comment : Pt being discharged on Bactrim. 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 Pt mother states plan to return to [facility] on 03/06. next f/u will be in [...] : WALI Cartagena RN, RN, RN - 06/24/2016 16:14 MENTAL RETARDATION AIDE WALI MCCLELLAN RN - 06/24/2016 16:14 WALI REYNOLDS RN - 06/24/2016 16:14 WALI REYNOLDS RN - 06/24/2016 16:14 MENTAL RETARDATION AIDE Date : 03/11/2016 CDT 03/16/2016 CDT 03/31/2016 [...] pt will be staying with sister in [facility] next week she will have INR drawn in [place] again called to Fabiola/pt to do next INR at [facility] on a ./no changes called to Fabiola/no changes called to Fabiola/Mom,no changes/missed doses Recommend Recheck : Other: 03/16/16 Other: 03/31/16(2 weeks) One month Two weeks Plan completed by : JENIFER PRECIADO ly WALI GUTIERREZ RN - 06/24/2016 16:14 WALI REYNOLDS RN - 06/24/2016 16:14 WALI REYNOLDS RN - 06/24/2016 16:14 WALI REYNOLDS RN - 06/24/2016 16:14 MENTAL RETARDATION AIDE Date : 05/11/2016 MENTAL RETARDATION AIDE 05/12/2016 MENTAL RETARDATION AIDE 05/17/2016 MENTAL RETARDATION AIDE 05/24/2016 MENTAL RETARDATION AIDE Location of INR sample : Other: Drawn in [place] Other: [place] Other: [place] Type of Sample : INR Result : 1.6 2.4 1.8 Warfarin Dose : 2.5mg daily 2.5mg daily 5mg 05/24 then 2.5mg daily Total Weekly Warfarin Dose : 17.5 Comment : Per Mom/Fabiola, pt disch from [facility], fell & fx left humerus 05/08, [...] completed by : WALI REIS RN - 06/24/2016 16:14 WALI REYNOLDS RN - 06/24/2016 16:14 WALI REYNOLDS RN - 06/24/2016 16:14 WALI REYNOLDS RN - 06/24/2016 16:14 MENTAL RETARDATION AIDE Date : 06/01/2016 MENTAL RETARDATION AIDE 06/06/2016 MENTAL RETARDATION AIDE 06/10/2016 MENTAL RETARDATION AIDE 06/13/2016 MENTAL RETARDATION AIDE Location of INR sample : Other: [place] Other: [facility] Other: [facility] Type of Sample : INR Result : [...] completed by : WALI Mckay RN - 06/24/2016 16:14 MENTAL RETARDATION AIDE WALI MCCLELLAN RN - 06/24/2016 16:14 MENTAL RETARDATION AIDE WALI MCCLELLAN RN - 06/24/2016 16:14 WALI REYNOLDS RN - 06/24/2016 16:14 MENTAL RETARDATION AIDE Date : 06/17/2016 MENTAL RETARDATION AIDE 06/24/2016 MENTAL RETARDATION AIDE Location of INR sample : Other: [facility] Other: [facility] Type of Sample : INR Result : 2.7 2.4 Warfarin Dose : 5mg Sun, Tues & Thurs, 2.5mg all other days 5mg Sun, Tues & Thurs, 2.5mg allother days Total Weekly Warfarin Dose : 25 25 Comment : Called to Mom/Fabiola, no changes, rev'd w/[place]/Pharmacy, will try noted dose, [place]23 Called to Mom/Fabiola, no changes, will be back in [place] for next INR Recommend Recheck : One week Other: 07/07/16 Plan completed by : WALI FITZPATRICK RN - 06/24/2016 16:14 MENTAL RETARDATION AIDE WALI MCCLELLAN RN - 06/24/2016 16:14 MENTAL RETARDATION AIDE Anticoagulation Assessment / History Visit : Phone management Plan of Care Date : 01/29/2008 CDT Primary Physician Anticoagulation : TASHA HENRIQUEZ MD 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 [employer] Document Id: [id number] MENTAL RETARDATION AIDE!775 AL RETARDATION AIDE Miscellaneous - Chava Garza R.N. - 06/24/2016 4:12 PM CST INR from 06/24/16 Document Contains Addenda Addendum by WALI MCCLELLAN RN on June 24, 2016 16:27:28 MENTAL RETARDATION AIDE From: WALI MCCLELLAN RN ( Anticoagulation Nurse) To: CHAVA GARZA R.N.; Sent: 06/24/2016 16:27:28 MENTAL RETARDATION AIDE Subject: RE: INR from 06/24/16 Reviewed and called to Mom/Fabiola. From: CHAVA GARZA R.N. To: Anticoagulation Nurse; Sent: 06/24/2016 16:12:36 MENTAL RETARDATION AIDE ! Subject: INR from 06/24/16 Dr. Penny wanted me to touch base and make sure someone reviews patients INR results from today andmake adjustments as needed. Source: [facility] [employer] Document Id: [id number] documented in this encounter Plan of Treatment Not on filedocumented as of this encounter Procedures Procedure Name Priority Date/Time Associated Comments Diagnosis PROTHROMBIN TIME Routine 06/24/2016 9:38 AM Resul ts for this (PT), P MENTAL RETARDATION AIDE procedure are i n the results section. documented in this encounter Results (ABNORMAL) PT (Prothrombin Time) with INR (06/24/2016 9:38 AM MENTAL RETARDATION AIDE) [facility] gist Method Time Signature Prothrombin 27.5 (H) 8.8 - 11.9 POWERCHART Time, P [...] Time Location / / Volume Laterality Blood 06/24/2016 9:38 AM MENTAL RETARDATION AIDE Tasha Henriquez M.D. LAB BLOOD ADD-ON Performing Organization Address City/State/ZIP Code Phon e Number POWERCHART documented in this encounter Visit Diagnoses Not on filedocumented in this encounter
--- OUTSIDE RECORDS SUMMARY | 2022-04-25 16:00 | XMS_ITS | Encounter Summary ---
:1975 Author Organization [facility] Address [address] [place] [address] Care Team Providers Name Role Phone Unavailable Primary Care Provider Unavailable Encounter Details Date Type Department Care Team Description 06/13/2016 Hospital Encounter HX [facility] Marsha Garibay M.D. [address] [place], [place] [address] (Wo rk) Social History [...] - - Height 137 cm (4' 5.94) 06/13/2016 10:08 AM CLINICAL DENTAL TECHNICIAN Body Mass Index - - documented in [...] Date/Time Associated Comments Diagnosis PROTHROMBIN TIME Routine 06/13/2016 10:15 Results for this (PT), P AM CLINICAL DENTAL TECHNICIAN procedure are i n the results section. documented in this encounter Results (ABNORMAL) PT (Prothrombin Time) with INR (06/13/2016 10:15 AM CLINICAL DENTAL TECHNICIAN) [facility] Method Time Signature Prothrombin 24.1 (H) [...] Time Location / / Volume Laterality Blood 06/13/2016 10:15 AM CLINICAL DENTAL TECHNICIAN Sridhar Garibay M.D. LAB BLOOD ADD-ON Performing Organization Address City/State/ZIP Code Phon e Number POWERCHART documented in this encounter Visit Diagnoses Not on filedocumented in this encounter
--- OUTSIDE RECORDS SUMMARY | 2022-04-25 16:00 | XMS_ITS | Encounter Summary ---
:1975 Author Organization [facility] Address [address] [place] [id number] Care Team Providers Name Role Phone Unavailable Primary Care Provider Unavailable Encounter Details Date Type Department Care Team Description 05/12/2016 Hospital En[facility] Andrea Whipple M.D. [address] [place], [place] [address] (Wo rk) Social History [...] - Height 137 cm (4' 5.94) 05/12/2016 9:40 AM [facility] Body Mass Index - - documented in [...] encounter Miscellaneous Notes Miscellaneous - Meli Campo RKareem. - 05/12/2016 1:19 PM CST Anticoagulation Patient Intake Anticoagulation Patient Intake Entered On: 05/12/2016 13:20 [facility] Performed On: 05/12/2016 13:19 [facility] by MELI CAMPO RN Plan INR goal range : 2.0 - 3.0 Duration of Therapy : Lifelong Tablet Size : 2 mg, 5 mg MELI CAMPO RN - 05/12/2016 13:19 [place] [place] [facility] Anticoagulation Management Plan Grid Date : 09/05/2013 [...] darya BURGESS JM MELI Carroll RN - 05/12/2016 13:19 [place] [facility] MELI CAMPO RN - 05/12/2016 13:19 [place] [facility] MELI CAMPO - 05/12/2016 13:19 [place] [facility] MELI CAMPO RN - 05/12/2016 13:19 [place] [facility] Date : 12/26/2013 CDT 01/30/2014 CDT 03/06/2014 [...] completed by : MELI Pradhan RN - 05/12/2016 13:19 [place] [place] [facility] MELI CAMPO RN - 05/12/2016 13:19 [place] [facility] [place] MELI CAMPO - 05/12/2016 13:19 [place] [facility] MELI CAMPO RN - 05/12/2016 13:19 [place] [facility] Date : 03/20/2014 CDT 03/27/2014 CDT 04/10/2014 [...] Other: Plan completed by : darya lackey [facility]/pharmacy MELI CAMPO RN - 05/12/2016 13:19 [place] [facility] MELI CAMPO RN - 05/12/2016 13:19 MELI ROJO - 05/12/2016 13:19 MELI ROJO RN - 05/12/2016 13:19 [place] [facility] Date : 04/17/2014 CDT 04/24/2014 CDT 05/01/2014 [facility] 05/15/2014 [facility] [place] [facility] Location of INR sample : Lab Lab [...] will trynoted dose called to mom Fabiola [phone] called to Fabiola/no changes Called to mother/Fabiola, not awareof any changes Recommend Recheck : One week One week Two weeks Two weeks Plan completed by : MELI LEON RN - 05/12/2016 13:19 [place] [facility] MELI CAMPO RN - 05/12/2016 13:19 MELI ROJO - 05/12/2016 13:19 MELI ROJO RN - 05/12/2016 13:19 [place] [facility] Date : 06/03/2014 [facility] 06/05/2014 [facility] 06/10/2014 [facility] 06/11/2014 [facility] [place] [facility] Location of INR sample : Lab Type [...] Called motherFabiola. Hue will be staying in [place] 2wks post-surgery & have INR drawn there. [...] lovenox tomorrow AM as ordered. INR in [place] for next several weeks as pt will be recovering there. Recommend Recheck : Other: depending on Dr. Henriquez's preop. Other: 06/18 Other: 06/13/14 Plan completed by : MELI ROSADO RN - 05/12/2016 13:19 [place] [facility] MELI CAMPO RN - 05/12/2016 13:19 [place] [facility] MELI CAMPO LRN - 05/12/2016 13:19 [place] MELI CAMPO RN - 05/12/2016 13:19 [place] [facility] Date : 06/14/2014 [facility] 06/14/2014 [facility] [place] [facility] 06/16/2014 [facility] [place] [facility] 06/23/2014 [facility] [place] [facility] Location of INR sample : Clinic Lab Lab Type of Sample : Venous Venous INR Result : 1.3 on 06/13 2.4 faxed from lab 2.0 Warfarin Dose : (pt took 2.5mg 06/13) 5mg Sat and 5mg Sun (06/14 and 06/15) 5mg Mon and 2.5mg all other days 5mg Mon and 2.5mg all other days Total Weekly Warfarin Dose : 20 20 Comment : [place] lab called with INR result from 06/13, reported they left a message with Dr. Henriquez and hadn't heard back, spoke with motherFabiola, and gave doses, continue Lovenox and repeat INR 06/16, message left with INR clinic in [place] to contact [facility] Please contact [place] lab on 06/16 for result and may call Fabiola at [phone] with instructions call to Fabiola/will stop Lovenox [...] by : MELI Vazquez LM RN - 05/12/2016 13:19 [place] [facility] MELI CAMPO RN - 05/12/2016 13:19 [place] [facility] MELI CAMPO - 05/12/2016 13:19 [place] [facility] MELI CAMPO RN - 05/12/2016 13:19 [place] [facility] Date : 07/10/2014 [facility] 07/17/2014 [facility] 07/31/2014 [facility] 09/11/2014 CDT Location of INR sample : [...] completed by : MELI Rubi RN - 05/12/2016 13:19 [place] [facility] MELI CAMPO RN - 05/12/2016 13:19 MELI ROJO - 05/12/2016 13:19 MELI ROJO RN - 05/12/2016 13:19 [place] [facility] Date : 09/12/2014 CDT 09/25/2014 CDT 10/02/2014 [...] completed by : MELI Owen RN - 05/12/2016 13:19 [place] [facility] MELI CAMPO RN - 05/12/2016 13:19 MELI ROJO - 05/12/2016 13:19 MELI ROJO RN - 05/12/2016 13:19 [place] [facility] Date : 10/23/2014 CDT 11/13/2014 CDT 11/20/2014 [...] is she is 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 Alset Wellen/no bleeding/consult with Quintin/Pharmacy and called Mom with orders Per Meredith Hernandez, no changes, has been drinking some Kiwi Juice, no bleeding/consult with Quintin/Pharmacy Called to mom /Fabiola, no changes, rev'd w/BCarlson/Pharmacy Recommend Recheck : Three weeks One week One week One week Plan completed by : MELI Bailey RN - 05/12/2016 13:19 [place] [facility] MELI CAMPO RN - 05/12/2016 13:19 MELI ROJO - 05/12/2016 13:19 [place] [facility] MELI CAMPO RN - 05/12/2016 13:19 [place] [facility] Date : 12/04/2014 CDT 12/18/2014 CDT 01/15/2015 [...] completed by : MELI Shirley RN - 05/12/2016 13:19 [place] [facility] MELI CAMPO RN - 05/12/2016 13:19 [place] [facility] [place] MELI CAMPO LRN - 05/12/2016 13:19 [place] [facility] MELI CAMPO RN - 05/12/2016 13:19 [place] [facility] Date : 02/05/2015 CDT 02/26/2015 CDT 03/05/2015 [...] completed by : MELI CAMPOS RN - 05/12/2016 13:19 [place] [facility] MELI CAMPO RN - 05/12/2016 13:19 [place] MELI CAMPO - 05/12/2016 13:19 [place] [facility] MELI CAMPO RN - 05/12/2016 13:19 [place] [facility] [place] Date : 04/09/2015 CDT 05/07/2015 [facility] [place] [facility] 06/04/2015 [facility] [place] [facility] 07/02/2015 [facility] [place] [facility] Location of INR sample : Lab Lab [...] completed by : MELI Keating RN - 05/12/2016 13:19 [place] [facility] MELI CAMPO RN - 05/12/2016 13:19 MELI ROJO - 05/12/2016 13:19 MELI ROJO RN - 05/12/2016 13:19 [place] [facility] Date : 08/06/2015 [facility] [place] [facility] 09/17/2015 CDT 10/29/2015 CDT 11/12/2015 CDT Location [...] completed by : MELI Edwards RN - 05/12/2016 13:19 [place] MELI CAMPO RN - 05/12/2016 13:19 [place] MELI CAMPO - 05/12/2016 13:19 [place] MELI CAMPO RN - 05/12/2016 13:19 [place] [facility] Date : 11/19/2015 CDT 12/03/2015 CDT 12/31/2015 [...] completed by : MELI Pickett RN - 05/12/2016 13:19 [place] [facility] MELI CAMPO RN - 05/12/2016 13:19 [place] MELI CAMPO - 05/12/2016 13:19 [place] [facility] MELI CAMPO RN - 05/12/2016 13:19 [place] [facility] Date : 02/19/2016 CDT 02/20/2016 CDT 02/21/2016 CDT 02/22/2016 CDT Location of INR sample : [facility] Type of Sample : Venous Venous [...] completed by : Tyshawn Brizuela, Pharm.D. Tyshawn Brizuela PharmMichaelDMichael ASTUDILLO, PharmD Eliseo Quezada, PharmD. JAVIERNATALIIAANTONI Simmons RN - 05/12/2016 13:19 [place] [facility] MELI CAMPO RN - 05/12/2016 13:19 [place] MELI CAMPO LRClemente - 05/12/2016 13:19 [place] [facility] MELI CAMPO RN - 05/12/2016 13:19 [place] [facility] Date : 02/23/2016 CDT 02/24/2016 CDT 02/25/2016 [...] Eliseo Quezada, PharmD. MELI CAMPO RN - 05/12/2016 13:19 [place] [facility] MELI CAMPO RN - 05/12/2016 13:19 [place] [facility] MELI CAMPO - 05/12/2016 13:19 [place] [facility] MELI CAMPO RN - 05/12/2016 13:19 [place] [facility] Date : 02/27/2016 CDT 03/01/2016 CDT 03/04/2016 [...] : MELI Bone RN, RN, RN - 05/12/2016 13:19 [place] [facility] [place] MELI CAMPO RN - 05/12/2016 13:19 MELI ROJO - 05/12/2016 13:19 MELI ROJO RN - 05/12/2016 13:19 [place] [facility] Date : 03/11/2016 CDT 03/16/2016 CDT 03/31/2016 [...] pt will be staying with sister in [facility] next week she will have INR drawn in [place] again called to Fabiola/pt to do next INR at [facility] on a ./no changes called to Fabiola/no changes called to Fabiola/Mom,no changes/missed doses Recommend Recheck : Other: 03/16/16 Other: 03/31/16(2 weeks) One month Two weeks Plan completed by : MELI Lorenzana RN - 05/12/2016 13:19 [place] MELI CAMPO RN - 05/12/2016 13:19 [place] MELI CAMPO LRN - 05/12/2016 13:19 [place] MELI CAMPO RN - 05/12/2016 13:19 [place] [facility] Date : 05/11/2016 [facility] [place] [facility] 05/12/2016 [facility] [place] [facility] Location of INR sample : Other: Drawn in [place] Type of Sample : INR Result : 1.6 Warfarin Dose : 2.5mg daily Total Weekly Warfarin Dose : Comment : Per Mom/Fabiola, pt disch from [facility], fell & fx left humerus 05/08, surg 05/09, INR 1.3 on 05/08, 1.5 on 05/09, 1.6 on 05/10 & 1.4 05/11, has had 2.5mg daily since 05/09, going to for INR 05/12 & result to be faxed to us, not on Lovenox rev'd with JimPharmacist,called to mom/Fabiola,she will have it done in again Tues Recommend Recheck : Other: 05/12/16 Other: 05/17/16 Plan completed by : MELI ESPINOZA RN - 05/12/2016 13:19 [place] [facility] [place] MELI CAMPO RN - 05/12/2016 13:19 [place] [facility] Anticoagulation Assessment / History Visit : Phone management Plan of Care Date : 01/29/2008 CDT Primary Physician Anticoagulation : TASHA HENRIQUEZ MD 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
--- OUTSIDE RECORDS SUMMARY | 2022-04-25 16:00 | XMS_ITS | Encounter Summary ---
:1975 Author Organization [facility] Address [address] [place] [address] Care Team Providers Name Role Phone Unavailable Primary Care Provider Unavailable Encounter Details Date Type Department Care Team Description 05/09/2016 - Hospital Encounter HX RST SANTOSH RAVI 8G Sems, Óscar Benavides, 05/11/2016 M.D. [address] [place] [phone] Social History Tobacco Use Types Packs/Day Years Used Date Smoking Tobacco: Never Assessed Sex Assigned at Date Recorded Not on file documented as of this encounter Last Filed Vital Signs Vital Sign Reading Time Taken Comments Blood Pressure 95/53 05/11/2016 7:30 AM NIBP - Value from PROCESS TRAINER [employer]. Pulse 81 05/11/2016 8:44 AM Value from [employer]. PROCESS TRAINER Temperature - - Respiratory Rate 20 05/11/2016 7:30 AM Value from C [facility]. PROCESS TRAINER Oxygen Saturation - - Inhaled Oxygen - - Concentration Weight 76.5 kg (168 lb 10.4 05/09/2016 11:14 Vital s ign result oz) AM PROCESS TRAINER from [facility]. Height 137.2 cm (4' 6.02) 05/09/2016 11:14 Vital si gn result AM PROCESS TRAINER from [facility]. Body Mass Index 40.64 05/09/2016 11:14 AM PROCESS TRAINER documented in this encounter Medications at Time [...] Priority Date/Time Associated Comments Diagnosis PROTHROMBIN TIME (PT), Routine 05/11/2016 4:50 AM Results for this P PROCESS TRAINER procedure are i n the results section. ELECTROLYTE (CHEM 4) Routine 05/10/2016 4:46 AM R esults for this PANEL, S/P PROCESS TRAINER procedure are i n the results section. THROMBOPHILIA PROF Routine 05/10/2016 4:46 AM Res ults for this PROCESS TRAINER procedure are i n the results section. HOMOCYSTEINE, TOT, P Routine 05/10/2016 4:46 AM R esults for this PROCESS TRAINER procedure are i n the results section. ANTITHROMBIN AG, P Routine 05/10/2016 4:46 AM Res ults for this PROCESS TRAINER procedure are i n the results section. PHOSPHOLIPID Routine 05/10/2016 4:46 AM Results f or this (CARDIOLIPIN) ABS, PROCESS TRAINER procedure are in IGG, S the results section. PHOSPHOLIPID Routine 05/10/2016 4:46 AM Results f or this (CARDIOLIPIN) ABS, PROCESS TRAINER procedure are in IGA, S the results section. PROTEIN S AG, TOT, P Routine 05/10/2016 4:46 AM R esults for this PROCESS TRAINER procedure are i n the results section. PT MIX 1:1 Routine 05/10/2016 4:46 AM Results f or this PROCESS TRAINER procedure are i n the results section. PROTHROMBIN TIME (PT), Routine 05/10/2016 4:46 AM Results for this P PROCESS TRAINER procedure are i n the results section. COAG FACTOR VII Routine 05/10/2016 4:46 AM Result s for this ACTIVITY ASSAY, P PROCESS TRAINER procedure are in the results section. COAG FACTOR II Routine 05/10/2016 4:46 AM Results for this ACTIVITY ASSAY, P PROCESS TRAINER procedure are in the results section. CBC WITHOUT Routine 05/10/2016 4:46 AM Results f or this DIFFERENTIAL, B PROCESS TRAINER procedure ar e in the results section. PROTHROMBIN TIME (PT), Routine 05/09/2016 9:23 PM Results for this P PROCESS TRAINER procedure are i n the results section. FL FLUORO LESS THAN 1 Routine 05/09/2016 4:17 PM Results for this HOUR PROCESS TRAINER procedure are i n the results section. ELBOW, 1-2VWS Routine 05/09/2016 4:16 PM Results for this PROCESS TRAINER procedure are i n the results section. HEMOGLOBIN, B Routine 05/09/2016 3:50 PM Results for this PROCESS TRAINER procedure are i n the results section. CT 3D REQUIRING Routine 05/09/2016 8:35 AM Result s for this INDEPENDENT PROCESS TRAINER procedure are i n WORKSTATION the results section. ECG Routine 05/09/2016 7:53 AM Results f or this PROCESS TRAINER procedure are i n the results section. CT UPPER EXTREMITY Routine 05/09/2016 12:45 Resul ts for this WITHOUT IV CONTRAST AM PROCESS TRAINER procedur e are in the results section. ELBOW, 1-2VWS Routine 05/08/2016 7:47 PM Results for this PROCESS TRAINER procedure are i n the results section. DX SHOULDER UNILATERAL Routine 05/08/2016 7:41 PM Results for this 2+ VIEWS PROCESS TRAINER procedure are i n the results section. documented in this encounter Results (ABNORMAL) PT (Prothrombin Time) with INR (05/11/2016 4:50 AM PROCESS TRAINER) [facility] gist Method Time Signature Prothrombin 16.4 (H) 9.5 - [facility] Time, P 13.8 SEC LABORATORIES [facility] INR 1.4 0.8 - 1.2 [facility] Specimen Anatomical Collection Method Collection Time Receive d Time (Source) Location / / Volume Laterality 05/11/2016 4:50 AM 6 4:50 PROCESS TRAINER AM PROCESS TRAINER Óscar Ortiz M.D. LAB BLOOD ADD-ON Performing Organization Address City/State/ZIP Code Phon e Number [facility] - [address] [place], [place] [address] [facility] PT Mix 1:1 (05/10/2016 4:46 AM PROCESS TRAINER) P athologist Signature PT Mix 1:1 12.0 10.3 - 12.8 [facility] Specimen Anatomical Collection Method Collection Time Receive d Time (Source) Location / / Volume Laterality 05/10/2016 4:46 AM 6 4:46 PROCESS TRAINER AM PROCESS TRAINER Lance Delcid APRNN.Frankie., M.S.N. LAB BLOOD ADD-ON Performing Organization Address City/[facility] Code Phon e Number [facility] - [address] [place] [address] [facility] (ABNORMAL) Coagulation Factor VII Activity Assay (05/10/2016 4:46 AM PROCESS TRAINER) Analysis Performed At Patho logist Time Signature Coag Factor 35 (L) 65 - 180 % [facility] VII Assay, [facility] Specimen Anatomical Collection Method Collection Time Receive d Time (Source) Location / / Volume Laterality 05/10/2016 4:46 AM 6 4:46 PROCESS TRAINER AM PROCESS TRAINER Lance Delcid APRNNAdriana., M.S.N. LAB BLOOD ADD-ON Performing Organization Address City/[facility]/ZIP Code Phon e Number [facility] - [address] [address] [facility] (ABNORMAL) Coagulation Factor II Activity Assay (05/10/2016 4:46 AM PROCESS TRAINER) Analysis Performed At Patho logist Time Signature Coag Factor II 35 (L) 75 - 145 % [facility] Assay, P [facility] Specimen Anatomical Collection Method Collection Time Receive d Time (Source) Location / / Volume Laterality 05/10/2016 4:46 AM 6 4:46 PROCESS TRAINER AM PROCESS TRAINER Lance Delcid APRNN.P., M.S.N. LAB BLOOD ADD-ON Performing Organization Address City/[facility] Code Phon e Number [facility] - [address] [address] [facility] (ABNORMAL) Antithrombin Antigen (05/10/2016 4:46 AM PROCESS TRAINER) Patholo gist Method Time Signature Antithrombin 65 (L) 80 - 130 [facility] Antigen, P % LAB[facility]ATORIES [facility] Specimen Anatomical Collection Method Collection Time Receive d Time (Source) Location / / Volume Laterality 05/10/2016 4:46 AM 6 4:46 PROCESS TRAINER AM PROCESS TRAINER Kanchan Delgado APRN, C.N.P., M.S.N. LAB BLOOD ADD-ON Performing Organization Address City/State/ZIP Code Phon e Number [facility] - [address] [place], [place] [address] [facility] Homocysteine, Total, Plasma (05/10/2016 4:46 AM PROCESS TRAINER) P athologist Signature Homocysteine, 5 <=13 [facility] Total, P (Fasting) LABORATORIES - [facility]/L [facility] Comment: ? ADDITIONAL INFORMATIO N ? Laboratory developed test. ? Specimen Anatomical Collection Method Collection Time Receive d Time (Source) Location / / Volume Laterality 05/10/2016 4:46 AM 6 4:46 PROCESS TRAINER AM PROCESS TRAINER Kanchan Delgado APRN, C.N.P., M.S.N. LAB BLOOD NON ADD- ON Performing Organization Address City/[facility] Phon e Number [facility] - [address] [address] [facility] (ABNORMAL) PT (Prothrombin Time) with INR (05/10/2016 4:46 AM PROCESS TRAINER) [facility] Method Time Signature Prothrombin 18.6 (H) 9.5 - [facility] Time, P 13.8 [facility] - [facility] INR 1.6 0.8 - 1.2 [facility] - [facility] Specimen Anatomical Collection Method Collection Time Receive d Time (Source) Location / / Volume Laterality 05/10/2016 4:46 AM 6 4:46 PROCESS TRAINER AM PROCESS TRAINER Kanchan Delgado APRN, C.N.P., M.S.N. LAB BLOOD ADD-ON Performing Organization Address City/State/[facility] Code Phon e Number [facility] - [address] [address] [facility] (ABNORMAL) CBC without Differential (05/10/2016 4:46 AM PROCESS TRAINER) [facility] Method Time Signature Erythrocytes 3.15 (L) 3.90 - [facility] 5.03 LABORATORIES - X10(12)/L [facility] MCV 95.9 81.6 - [facility] 98.3 FL LABORATORIES - [facility] RBC Distrib 14.4 11.9 - [facility] Width 15.5 % LABORATORIES - [facility] Platelet Count 124 (L) 150 - 450 [facility] X10(9)/L LABORATORIES [facility] Leukocytes 6.6 3.5 - [facility] 10.5 LABORATORIES - X10(9)/L [facility] Hemoglobin 9.8 (L) 12.0 - [facility] 15.5 G/DL LABORATORIES - [facility] Hematocrit 30.2 (L) 34.9 - [facility] 44.5 % LABORATORIES - [facility] Specimen Anatomical Collection Method Collection Time Receive d Time (Source) Location / / Volume Laterality 05/10/2016 4:46 AM 6 4:46 PROCESS TRAINER AM PROCESS TRAINER Kanchan Delgado APRN, C.N.P., M.S.N. LAB BLOOD ADD-ON Performing Organization Address City/State/ZIP Code Phon e Number [facility] - [address] [place], [place] [address] [facility] (ABNORMAL) Thrombophilia Profile (05/10/2016 4:46 AM PROCESS TRAINER) [facility] gist Method Time Signature Antithrombin 76 (L) 80 - 130 [facility] Activity, P % [facility] Protein S Ag, 25 (L) 50 - 160 [facility] Free, P % [facility] Activated 27 26 - 36 [facility] Partial [facility] - Thrombopl Time, [facility] Thrombin Time 17 15 - 23 [facility] (Bovine), P SEC [facility] Prothrombin 18.3 (H) 10.3 - [facility] Time, P 12.8 SEC [facility] INR 1.7 [facility] PTNT Reviewed By . [facility] Comment: Jeremi Hoang M.D., Ph.D. PTNT Interpretation . [facility] Comment: This individual DOES NOT have the Prothr ombin [id number] mutation. Although the ? Prothrombin [id number] mutation is absent, the individual may have other genetic ? and environmental risk factors for throm bosis. Consider genetic consultation ? and counseling of potentially affected f amily members regarding laboratory ? testing. ? ADDITIONAL INFORMATIO N ? This test is a direct mutation analysis using PCR amplification, signal ? generation and release by cleavage of se quence specific alleles ([employer] ? Chemistry, [employer], [place], [place]). ? APCRV Ratio 3.0 >or=2.3 [facility] LABORA TORIES [facility] PUS Fibrinogen, P 364 200 - 430 MG/DL [facility] PUS Fibrinogen Equivalent 0.67 (H) 0.00 - 0.50 MCG/ML [facility] Units (FEU) [facility] AMPUS D-Dimer Units (DDU) 335 (H) 0 - 250 [facility] PUS Comment: Unit of measure: ng/mL D-Dimer Soluble Fibrin Monomer <8 0.0 - 7.9 MCG/ML [facility] S DRVVT Screen Ratio 0.9 0.0 - 1.1 RATIO [facility] S Protein C Activity, P 63 (L) 70 - 150 % [facility] Prothrombin [id number] Negative Negative [facility] - Mutation, B [facility] PUS Reviewed By: (Conor Foss . [facility] - Interp) [facility] Comment: Eva Mackenzie HX Interpretation (w/David) . [facility] Comment: Type of Study: ??Thrombophilia Profile 1 07/10/2015 ? IMPRESSION: ??1) Warfarin anticoagulatio n effects, see comments. ? 2) Decreased protein C/S levels and redu maribeth antithrombin activity and ? antigen, acquired versus congenital. ??S ee comments, suggest clinical ? correlation and consider repeat testing for confirmation at patient's ? baseline medical status and remote from anticoagulation effects. ? 3) Mildly elevated D-dimer, see comments and suggest correlation with ? patient's medical status. ? 4) No additional identifiable congenital or acquired thrombophilia within ? limitations of current test repertoire. ? COMMENTS: ??Result of mixing study of pr olonged prothrombin time (PT), ? along with the reduced vitamin K-depende nt factors (factors II, VII and ? proteins C and S), are consistent with e ither warfarin anticoagulation effect ? or a vitamin K deficiency state. ??Sugge st clinical correlation. ? Note: ??The patient's reported history o f protein S deficiency is noted. ? This thrombophilia testing was sent whil e the patient is on warfarin ? anticoagulation therapy and the reduced free and total protein S levels may ? reflect either warfarin anticoagulation effects, congenital deficiency, or a ? combination. ??There is no significant d iscordance between the protein S ? levels and the activity of factor II (wh ich has a similar half-life to ? protein S) and therefore no strong indic ation of a congenital deficiency. ? However, this cannot be excluded based o n current data. ??To determine whether ? the patient has a congenital protein S d eficiency, testing could be repeated ? at least 14 days after warfarin therapy discontinuation if clinically ? indicated. ? Note: ??Decreased antithrombin antigen a nd/or activity could reflect ? acquired conditions [e.g., liver disease , disseminated intravascular ? coagulation (DIC/ICF), effect of recent heparin therapy, etc.] or a ? congenital deficiency state. ??Suggest c linical correlation. ? Elevated fibrin D-dimer is indicative of increased fibrinolysis, as can ? occur in association with recent bleedin g, surgery or thromboembolism, ? hypercoagulable state, liver disease, or intravascular coagulation and ? fibrinolysis (DIC/ICF). Suggest clinical correlation. ? No evidence of lupus anticoagulant (LAC) or dysfibrinogenemia. ??Normal ? fibrinogen level. ? No evidence of activated protein C resis tance; therefore DNA-based ? testing for factor V Leiden (R506Q) muta tion was not performed. ??This ? individual DOES NOT have the prothrombin [id number] mutation. ? Negative results of testing for IgG and IgM anticardiolipin antibodies ? provide no evidence of antiphospholipid antibodies by this methodology. ? Specimen Anatomical Collection Method Collection Time Receive d Time (Source) Location / / Volume Laterality 05/10/2016 4:46 AM 6 4:46 PROCESS TRAINER AM PROCESS TRAINER Kanchan Delgado APRN, C.N.P., M.S.N. LAB BLOOD NON ADD- ON Performing Organization Address City/State/ZIP Code Phon e Number [facility] - [address] [place], [place] [address] [facility] Phospholipid (Cardiolipin) Antibodies, IgG (05/10/2016 4:46 AM PROCESS TRAINER) [facility] gist Method Time Signature Phospholipid Ab <4.0 <10.0 [facility] IgG, S (Negative LABORATORIES - ) GPL [facility] Specimen Anatomical Collection Method Collection Time Receive d Time (Source) Location / / Volume Laterality 05/10/2016 4:46 AM 6 4:46 PROCESS TRAINER AM PROCESS TRAINER Kanchan Delgado APRN, C.N.P., M.S.N. LAB BLOOD ADD-ON Performing Organization Address City/[facility] Code Phon e Number [facility] - [address] [place] [phone] [facility] Electrolyte (Chem 4) Panel (05/10/2016 4:46 AM PROCESS TRAINER) Analysis Performed At [facility] logist Time Signature Chloride, S 101 98 - 107 [facility] MMOL/L LABORATORIES - [facility] HX Bicarbonate, 24 22 - 29 [facility] P/S MMOL/L LABORATORIES - [facility] Sodium, S 136 135 - 145 [facility] MMOL/L LABORATORIES - [facility] Potassium, S 4.3 3.6 - 5.2 [facility] MMOL/L LABORATORIES - [facility] Creatinine 0.9 0.6 - 1.1 [facility] MG/DL LABORATORIES - [facility] eGFR >60 >60 [facility] Non-Black/Afric ML/MIN/BSA LABORATORIES - an Tristanian [facility] eGFR-Black/Afri >60 >60 [facility] can Tristanian ML/MIN/BSA LABORATORIES - [facility] BUN (Blood Urea 9 6 - 21 [facility] Nitrogen), S MG/DL LABORATORIES - [facility] Anion Gap 11 7 - 15 [facility]IES - [facility] Glucose, S 104 70 - 140 [facility] MG/DL LABORATORIES - [facility] Specimen Anatomical Collection Method Collection Time Receive d Time (Source) Location / / Volume Laterality 05/10/2016 4:46 AM 6 4:46 PROCESS TRAINER AM PROCESS TRAINER Danie Delcid APRN.N.P., M.S.N. LAB BLOOD ADD-ON Performing Organization Address City/[facility] Code Phon e Number [facility] - [address] [place] [phone] [facility] Phospholipid (Cardiolipin) Antibodies, IgA (05/10/2016 4:46 AM PROCESS TRAINER) [facility] gist Method Time Signature Phospholipid Ab <4.0 <10.0 [facility] IgA, S (Negative LABORATORIES - ) APL [facility] Specimen Anatomical Collection Method Collection Time Receive d Time (Source) Location / / Volume Laterality 05/10/2016 4:46 AM 6 4:46 PROCESS TRAINER AM PROCESS TRAINER Kanchan Delgado APRN, C.N.P., M.S.N. LAB BLOOD ADD-ON Performing Organization Address City/[facility]/ZIP Code Phon e Number [facility] - [address] [address] [facility] (ABNORMAL) Protein S Antigen, Total (05/10/2016 4:46 AM PROCESS TRAINER) Analysis Performed At Patho logist Time Signature Protein S Ag, 49 (L) 70 - 160 % [facility] Total, P LABORATORIES - [facility] Specimen Anatomical Collection Method Collection Time Receive d Time (Source) Location / / Volume Laterality 05/10/2016 4:46 AM 6 4:46 PROCESS TRAINER AM PROCESS TRAINER Lance Delcid APRNN.Frankie., M.S.N. LAB BLOOD NON ADD- ON Performing Organization Address City/[facility]/ZIP Code Phon e Number [facility] - [address] [address] [facility] (ABNORMAL) PT (Prothrombin Time) with INR (05/09/2016 9:23 PM PROCESS TRAINER) Patholo gist Method Time Signature Prothrombin 18.1 (H) 9.5 - [facility] Time, P 13.8 SEC LABORATORIES - [facility] INR 1.5 0.8 - 1.2 [facility]ORATORIES - [facility] Specimen Anatomical Collection Method Collection Time Receive d Time (Source) Location / / Volume Laterality 05/09/2016 9:23 PM 6 9:23 PROCESS TRAINER PM PROCESS TRAINER Danie Delcid APRN.N.P., M.S.N. LAB BLOOD ADD-ON Performing Organization Address City/[facility]/ZIP Code Phon e Number [facility] - [address] [address] [facility] FL Fluoro Less Than 1 Hour (05/09/2016 4:17 PM PROCESS TRAINER) Anatomical Region Laterality Modality Radiographic Imaging Specimen (Source) Anatomical Collection Method Collection Time Re ceived Time Location / / Volume Laterality 05/09/2016 4:17 PM PROCESS TRAINER Impressions 05/09/2016 4:21 PM PROCESS TRAINER Image intensifier used. Image(s) acquire d. Electronically signed by: ?? Alicia Kohli MD [id number] 09-May-2016 16:21 Narrative 05/09/2016 4:21 PM PROCESS TRAINER 09-May-2016 16:17:00 ??Exam: Fluoro Assistance less < 1hr Indications: OR 410; Ortho; Left elbow f x OR internal fix ORIGINAL REPORT - 09-May-2016 16:21:00 EXAM: ??Fluoro Assistance less < 1hr Procedure Note Darryn Kohli M.D. - 09/21/2017Form atting of this note might be different from the original. 09-May-2016 16:17:00 Exam: Fluoro Assist ance less < 1hr Indications: OR 410; Ortho; Left elbow f x OR internal fix ORIGINAL REPORT - 09-May-2016 16:21:00 EXAM: Fluoro Assistance less < 1hr IMPRESSION: Image intensifier used. Image(s) acquire d. Electronically signed by: Alicia Kohli MD [id number] 09-May-2016 16:21 Óscar Ortiz M.D. IMG FLUOROSCOPY PROCEDURES Elbow, 1-2vws (05/09/2016 4:16 PM PROCESS TRAINER) Anatomical Region Laterality Modality Elbow N/A Radiographic Imaging Specimen (Source) Anatomical Collection Method Collection Time Re ceived Time Location / / Volume Laterality 05/09/2016 4:16 PM PROCESS TRAINER Impressions 05/09/2016 4:22 PM PROCESS TRAINER Interval plate and screw fixation of comminuted distal left humeral shaft fracture. Soft tissue gas likely postsurgical. Fracture lines are still visible. There is near anatomic hindu. Soft tissu e swelling about the elbow. Electronically signed by: ?? Kennedy White MD [id number] 09-May-2016 16:22 Narrative 05/09/2016 4:22 PM PROCESS TRAINER 09-May-2016 16:16:00 ??Exam: L Elbow 2vw AP/Lat Indications: OR 410; Ortho; Left distal humerus fracture; Left elbow fx OR internal fix (Left distal humerus open reduction, internal fixation) ORIGINAL REPORT - 09-May-2016 16:22:00 EXAM: Left Elbow 2vw AP/Lat: Procedure Note Marlo White M.D. - 09/21/2017For matting of this note might be different from the original. 09-May-2016 16:16:00 Exam: L Elbow 2vw A P/Lat Indications: OR 410; Ortho; Left distal humerus fracture; Left elbow fx OR internal fix (Left distal humerus open reduction, internal fixation) ORIGINAL REPORT - 09-May-2016 16:22:00 EXAM: Left Elbow 2vw AP/Lat: IMPRESSION: Interval plate and screw fix ation of comminuted distal left humeral shaft fracture. Soft tissue gas likely postsurgical. Fracture lines are still visible. There is near anatomic hindu. Soft tissue swelling about the elbow. Electronically signed by: Kennedy White MD [id number] 09-May-2016 16:22 Óscar Ortiz M.D. IMG DIAGNOSTIC IMAGING PROCE DURES (ABNORMAL) Hemoglobin (05/09/2016 3:50 PM PROCESS TRAINER) athologist Signature Hb 10.6 (L) 12.0 - [facility] 15.5 G/DL LABORATORIES - [facility] Comment: Drawn in [place] Specimen Anatomical Collection Method Collection Time Receive d Time (Source) Location / / Volume Laterality 05/09/2016 3:50 PM 6 3:50 PROCESS TRAINER PM PROCESS TRAINER Narrative [facility] - 05/09/2016 4:04 PM PROCESS TRAINER Drawn in [place] Historical Provider LAB BLOOD ADD-ON Performing Organization Address City/State/ZIP Code Phon e Number [facility] - [address] [address] [facility] [address] 3D Requiring Independent Workstation (05/09/2016 8:35 AM PROCESS TRAINER) Anatomical Region Laterality Modality Abdomen, Pelvis Computed Tomography Specimen (Source) Anatomical Collection Method Collection Time Re ceived Time Location / / Volume Laterality 05/09/2016 8:35 AM PROCESS TRAINER Impressions 05/09/2016 8:43 AM PROCESS TRAINER 1. Displaced, comminuted, intra-articula r fracture involving the distal left humerus, as below. 2. Minimally displaced, intra-articular fracture involving the medial coronoid process of the ulna. FINDINGS: ??CT of the left elbow without contrast with axial, sagittal and coronal reformatting and 3-D reconstructions performed on an independent workstation. There is a complex, intra-articular fract ure involving the left elbow, predominan tly the distal left humerus. This consists of a displaced, comminuted transverse fracture through the humeral metaphysis, with the distal fragments displaced appr oximately 13 mm medially and approximate ly 13 mm of overlap of the fracture fragments. Additionally, there is a longitudinally oriented fracture which extends from the transverse fracture through the in tercondylar region of the humeral epiphy sis, with involvement of the humeral ulnar joint. The distal fragments are distracted from each other, with approximately 9 mm of separation. Additional slight rotational element of the fracture. Additionally, there is a tiny, minimally displaced fracture involving the medial aspect of the coronoid process of the ulna (series 7, circa image 24). This extends to the articular surface. Small osseo us fragment just medial to the olecranon process (series 7, image 30) may represent a small fracture fragment, likely from the olecranon. Additional tiny fracture fragment at the proximal end of the ole cranon may be degenerative versus a frac ture fragment (series 9, image 37). No definite fracture identified of the r adius. Large amount of high density stranding about the left elbow, consistent with a hematoma. Large elbow joint effusion. Electronically signed by: ?? Marissa Choe ?? [id number] 09-May-20 08:43 Narrative 05/09/2016 8:43 AM PROCESS TRAINER 09-May-2016 08:35:00 ??Exam: 3D Requiring independent WS Indications: fx REVISED REPORT - 09-May-2016 08:43:00 EXAM: CT EXT UPPER wo LEFT including 3D images performed on an independent workstation. ?? COMPARISON: ??Left elbow radiographs . Procedure Note Marissa Choe M.D. - 09/21/2017For matting of this note might be different from the original. 09-May-2016 08:35:00 Exam: 3D Requiring independent WS Indications: fx REVISED REPORT - 09-May-2016 08:43:00 EXAM: CT EXT UPPER wo LEFT including 3D images performed on an independent workstation. COMPARISON: Left elbow radiographs 05/08. IMPRESSION: 1. Displaced, comminuted, intra-articula r fracture involving the distal left humerus, as below. 2. Minimally displaced, intra-articular fracture involving the medial coronoid process of the ulna. FINDINGS: CT of the left elbow without c ontrast with axial, sagittal and coronal reformatting and 3-D reconstructions performed on an independent workstation. There is a complex, intra-articular fracture involving the left elbow, predominantly the distal lef t humerus. This consists of a displaced, comminuted transverse fracture through the humeral metaphysis, with the distal fragments displaced approximately 13 mm medially and approximately 13 mm of overlap of the fr acture fragments. Additionally, there is a longitudinally oriented fracture which extends from the transverse fracture through the intercondylar region of the humeral epiphysis, with involvement of the humer al ulnar joint. The distal fragments are distracted from each other, with approximately 9 mm of separation. Additional slight rotational element of the fracture. Additionally, there is a tiny, minimally displaced fracture involving the medial aspect of the coronoid process of the ulna (series 7, circa image 24). This extends to the articular surface. Small osseous fragment just medial to the olecranon process (series 7, image 30) may represent a small fracture fragment, likely from the olecranon. Additional tiny fracture fragment at the proximal end of the olecranon may be degenerative versus a fracture fragment (series 9, image 37). No definite fracture identified of the r adius. Large amount of high density stranding about the left elbow, consistent with a hematoma. Large elbow joint effusion. Electronically signed by: Marissa Choe MD [id number] 09-May-2016 08:43 Sridhar Mckinley M.D. [facility] CT PROCEDURES ECG 12 Lead (05/09/2016 7:53 AM [facility]) Specimen (Source) Anatomical Collection Method Collection Time Re ceived Time Location / / Volume Laterality 05/09/2016 7:53 AM [facility] - 05/09/2016 9:00 AM [facility] 09May2016 07:53 VENTRICULAR RATE 67 Normal sinus rhythm Normal ECG When compared with ECG of 08-JUL-2013 10 :46, No significant change was found [id number]^MARLYN TSANG^PASCALE Procedure Note Pascale Durham M.D. - 09/14/2017Form atting of this note might be different from the original. 09May2016 07:53 VENTRICULAR RATE 67 Normal sinus rhythm Normal ECG When compared with ECG of 08-JUL-2013 10 :46, No significant change was found [id number]^MARLYN TSANG^PASCALE Marissa Woodson M.D. ECG ORDERABLES Performing Organization Address City/State/ZIP Code Phon e Number HX [facility] [address] [place] [address], U SA CT Upper Extremity without IV Contrast (05/09/2016 12:45 AM PROCESS TRAINER) Anatomical Region Laterality Modality Upper Extremity Computed Tomography Specimen (Source) Anatomical Collection Method Collection Time Re ceived Time Location / / Volume Laterality 05/09/2016 12:45 AM PROCESS TRAINER Impressions 05/09/2016 8:43 AM PROCESS TRAINER 1. Displaced, comminuted, intra-articula r fracture involving the distal left humerus, as below. 2. Minimally displaced, intra-articular fracture involving the medial coronoid process of the ulna. FINDINGS: ??CT of the left elbow without contrast with axial, sagittal and coronal reformatting and 3-D reconstructions performed on an independent workstation. There is a complex, intra-articular fract ure involving the left elbow, predominan tly the distal left humerus. This consists of a displaced, comminuted transverse fracture through the humeral metaphysis, with the distal fragments displaced appr oximately 13 mm medially and approximate ly 13 mm of overlap of the fracture fragments. Additionally, there is a longitudinally oriented fracture which extends from the transverse fracture through the in tercondylar region of the humeral epiphy sis, with involvement of the humeral ulnar joint. The distal fragments are distracted from each other, with approximately 9 mm of separation. Additional slight rotational element of the fracture. Additionally, there is a tiny, minimally displaced fracture involving the medial aspect of the coronoid process of the ulna (series 7, circa image 24). This extends to the articular surface. Small osseo us fragment just medial to the olecranon process (series 7, image 30) may represent a small fracture fragment, likely from the olecranon. Additional tiny fracture fragment at the proximal end of the ole cranon may be degenerative versus a frac ture fragment (series 9, image 37). No definite fracture identified of the r adius. Large amount of high density stranding about the left elbow, consistent with a hematoma. Large elbow joint effusion. Electronically signed by: ?? Marissa Choe ?? [id number] 14-Nov-20 16 08:43 Narrative 05/09/2016 8:43 AM PROCESS TRAINER 09-May-2016 00:45:00 ??Exam: L CT EXT UPPER wo Indications: fx REVISED REPORT - 09-May-2016 08:43:00 EXAM: CT EXT UPPER wo LEFT including 3D images performed on an independent workstation. ?? COMPARISON: ??Left elbow radiographs . Procedure Note Marissa Choe M.D. - 09/21/2017For matting of this note might be different from the original. 09-May-2016 00:45:00 Exam: L CT EXT UPPE R wo Indications: fx REVISED REPORT - 09-May-2016 08:43:00 EXAM: CT EXT UPPER wo LEFT including 3D images performed on an independent workstation. COMPARISON: Left elbow radiographs 05/08. IMPRESSION: 1. Displaced, comminuted, intra-articula r fracture involving the distal left humerus, as below. 2. Minimally displaced, intra-articular fracture involving the medial coronoid process of the ulna. FINDINGS: CT of the left elbow without c ontrast with axial, sagittal and coronal reformatting and 3-D reconstructions performed on an independent workstation. There is a complex, intra-articular fracture involving the left elbow, predominantly the distal lef t humerus. This consists of a displaced, comminuted transverse fracture through the humeral metaphysis, with the distal fragments displaced approximately 13 mm medially and approximately 13 mm of overlap of the fr acture fragments. Additionally, there is a longitudinally oriented fracture which extends from the transverse fracture through the intercondylar region of the humeral epiphysis, with involvement of the humer al ulnar joint. The distal fragments are distracted from each other, with approximately 9 mm of separation. Additional slight rotational element of the fracture. Additionally, there is a tiny, minimally displaced fracture involving the medial aspect of the coronoid process of the ulna (series 7, circa image 24). This extends to the articular surface. Small osseous fragment just medial to the olecranon process (series 7, image 30) may represent a small fracture fragment, likely from the olecranon. Additional tiny fracture fragment at the proximal end of the olecranon may be degenerative versus a fracture fragment (series 9, image 37). No definite fracture identified of the r adius. Large amount of high density stranding about the left elbow, consistent with a hematoma. Large elbow joint effusion. Electronically signed by: Marissa Choe MD [id number] 09-May-2016 08:43 Sridhar Mckinley M.D. [facility] CT PROCEDURES Elbow, 1-2vws (05/08/2016 7:47 PM PROCESS TRAINER) Anatomical Region Laterality Modality Elbow N/A Radiographic Imaging Specimen (Source) Anatomical Collection Method Collection Time Re ceived Time Location / / Volume Laterality 05/08/2016 7:47 PM PROCESS TRAINER Impressions 05/09/2016 7:24 AM PROCESS TRAINER Comminuted, predominantly oblique, anteriorly displaced fracture through the distal left humeral shaft. No definite intra-articular extension on these limited views. Approximately 4 cm overlap of the fracture fragments. Associated soft tissue swelling about the left elbow. Electronically signed by: ?? Lance Cheatham MD 09-May-2016 07:24 Narrative 05/09/2016 7:24 AM PROCESS TRAINER 08-May-2016 19:47:00 ??Exam: L Elbow 2 vw Indications: Trauma REVISED REPORT - 09-May-2016 07:24:00 EXAM: Left Elbow 2 vw. Procedure Note Virgilio Cheatham M.D. - 09/21/2017Formatt ing of this note might be different from the original. 08-May-2016 19:47:00 Exam: L Elbow 2 vw Indications: Trauma REVISED REPORT - 09-May-2016 07:24:00 EXAM: Left Elbow 2 vw. IMPRESSION: Comminuted, predominantly ob lique, anteriorly displaced fracture through the distal left humeral shaft. No definite intra-articular extension on these limited views. Approximately 4 cm overlap of the fracture fragments. Associated soft tissue swelling about the left elbow. Electronically signed by: Lance Cheatham MD 09-May-2016 07:24 Mercedes Hoang D.O. [facility] PROCE DURES DX Shoulder 2+ Views (05/08/2016 7:41 PM PROCESS TRAINER) Anatomical Region Laterality Modality Upper Extremity, Shoulder N/A Radiographic I maging Specimen (Source) Anatomical Collection Method Collection Time Re ceived Time Location / / Volume Laterality 05/08/2016 7:41 PM PROCESS TRAINER Impressions 05/09/2016 7:17 AM PROCESS TRAINER No shoulder fracture or dislocation identified on these limited views. If there is high clinical suspicion for fracture or dislocation, consider additional views. AC joint arthrosis. Electronically signed by: ?? Lance Cheatham MD 09-May-2016 07:17 Narrative 05/09/2016 7:17 AM PROCESS TRAINER 08-May-2016 19:41:00 ??Exam: L Shoulder 2vw Indications: Trauma REVISED REPORT - 09-May-2016 07:17:00 EXAM: Left Shoulder 2vw. Procedure Note Virgilio Cheatham M.D. - 09/21/2017Formatt ing of this note might be different from the original. 08-May-2016 19:41:00 Exam: L Shoulder 2v w Indications: Trauma REVISED REPORT - 09-May-2016 07:17:00 EXAM: Left Shoulder 2vw. IMPRESSION: No shoulder fracture or disl ocation identified on these limited views. If there is high clinical suspicion for fracture or dislocation, consider additional views. AC joint arthrosis. Electronically signed by: Lance Cheatham MD 09-May-2016 07:17 Mercedes [facility] PROCE DURES documented in this encounter Visit Diagnoses Not on filedocumented in this encounter
--- OUTSIDE RECORDS SUMMARY | 2022-04-25 16:00 | XMS_ITS | Encounter Summary ---
:1975 Author Organization [facility] Address [address] [place] [address] Care Team Providers Name Role Phone Unavailable Primary Care Provider Unavailable Encounter Details Date Type Department Care Team Description 06/30/2016 Hospital Encounter HX [facility] Stoney Galvan M.D. [address] [place], [place] [address] (Wo rk) Social History Tobacco Use Types Packs/Day Years Used Date Smoking Tobacco: Never Sex Assigned at Date Recorded Not on file documented as of this encounter Last Filed Vital Signs Vital Sign Reading Time Taken Comments Blood Pressure 104/53 06/30/2016 4:14 PM QC SCIENTIST Pulse 72 06/30/2016 4:14 PM QC SCIENTIST Temperature - - Respiratory Rate 16 06/30/2016 4:14 PM QC SCIENTIST Oxygen Saturation - - Inhaled Oxygen Concentration - - Weight 74.3 kg (163 lb 12.8 oz) 06/30/2016 4:14 PM QC SCIENTIST Height 146 cm (4' 9.48) 06/30/2016 4:14 PM QC SCIENTIST Body Mass Index 34.86 06/30/2016 4:14 PM QC SCIENTIST documented in this encounter Medications at Time [...] 30 tab(s) documented as of this encounter H&P Notes Emily Galvan M.D. - 06/30/2016 7:31 PM CST Clinic Full Note CHIEF COMPLAINT/REASON FOR VISIT Yearly physical. HISTORY OF PRESENT ILLNESS Patient is a 41 year old female who presents for an annual exam. She is here today with her mom. Noacute concerns. 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 Lives independently in apartment. Works at [employer]. Nonsmoker. Never been sexually active. MEDICATIONS acetaminophen 500 mg oral tablet, 1,000 mg, 2 tab(s), PO, q6hr, PRN chlorhexidine 0.12% mucous membrane liquid, 0.018 gm, 15 mL, PO, Bedtime Coumadin 2 mg oral tablet, See Instructions, This dosage is currently not required., 0 refills multivitamin, 1 tab, PO, Daily Prevident 5000 Plus topical paste, 1 luther, Topical, 2xDay warfarin 2.5 mg oral tablet, See Instructions, 5mg Sun, Tues & Thurs, 2.5mg all other days or as directed per INR Clinic as of 06/17/16 ALLERGIES Bee Stings chloramphenicol containing compounds quinolone antibiotics PAST MEDICAL HISTORY Chronic Gallstone Without Obstruction Impaired Fasting Glucose Irregular Menstrual Cycle Mixed Hyperlipidemia Phlebitis and Thrombophlebitis of Other Deep Vessels of Lower Extremities Primary Hypercoagulable State Trisomy 21 Historical No historical problems PROCEDURES/SURGICAL HISTORY Laparoscopic cholecystectomy (06/11/2014), AV - Atrioventricular valve operation (03/29/2013), Colonoscopy (12/04/2012), Papanicolaou smear taken (07/19/2010), I and D, left thigh & leg (01/15/2000). SOCIAL HISTORY Date Time: 06/30/2016 16:14 Tobacco: Smoking Status: Never smoker Exposure: Other: never smoker Alcohol: Use: No Recreational Drugs: Use: None Type: No Results Found FAMILY HISTORY Aunt (Maternal):Positive: CA - Breast cancer; Thyroid dysfunction Uncle (Maternal):Positive: Aneurysm Aunt (maternal):Positive: Thyroid dysfunction Aunt (maternal):Positive: Aneurysm SYSTEMS REVIEW General: No acute distress. No fever, chills. HEENT: Denies headaches, no eye pain, no ear pain. No runny nose. No sore throat. No cervical LAD. Neck: Denies neck pain, no thyromegaly Lungs: Denies cough, SOB CV: Denies chest pain Abdomen: Denies abdominal pain, no change in bowel habits : Denies dysuria Ext: Denies edema Psych: Denies change in mood VITAL SIGNS T: 36.5 ??C (Core) HR: 72 RR: 16 BP: 104 / 53 SpO2: 99% HT: 146 cm WT: 74.3 kg BMI: 34.86 PHYSICAL EXAMINATION General: Patient is alert, in no acute distress. Well-groomed. HEENT: NC/AT, PERRL, EOMI, TMs clear, external canals patent, oropharynx moist, no exudate, no erythema. NECK: supple, no LAD, no thyromegaly. LUNGS: CTA bilaterally, no rhonchi, wheezes or rales. CV: RRR, no murmurs, rubs or gallops. ABDOMEN: NT/ND, +BS, no masses. EXTREMITIES: No clubbing, no cyanosis, no edema. PSYCH: Normal mood and affect. IMPRESSION/REPORT/PLAN 1. Well Adult Exam Normal Will order pelvic U/S for screening as PAP was too traumatizing for patient. Mammogram ordered. Fasting labs pending. Continue improved overall activity. Ordered: OV Est Pt Prev Svc 2. Trisomy 21 Doing very well living independently. Ordered: OV Est Pt Prev Svc 3. Tricuspid valve regurgitation NOS Stable Ordered: OV Est Pt Prev Svc 4. Mixed Hyperlipidemia Labs pending- no meds at this time. Ordered: OV Est Pt Prev Svc [id number] 5. Impaired Fasting Glucose Labs pending. Ordered: OV Est Pt Prev Svc [id number] 6. Deficiency Protein S On chronic warfarin. Ordered: OV Est Pt Prev [facility] [id number] - [id number] Electronically Signed By: EMILY GALVAN MD On: 07/05/2016 09:11 PM Source: [facility] POWERCHART Document Id: [id number] SCIENTIST documented in this encounter Miscellaneous Notes Miscellaneous - Emily Galvan M.D. - 07/05/2016 9:11 PM CST Ambulatory Discharge Medication List [address] [id number] Visit Information Name: DORITA MEDINA [facility] Number: [id number] Current Date: 07/05/2016 21:11:43 Attending Provider: EMILY GALVAN MD Primary Care Provider: TASHA HENRIQUEZ MD DORITA MEDINA has been given the following list of medications: Your Medications It is important to take your medications as directed. Use a pill box or chart to help remind you to take your medications. Please let your doctor or nurse know if you have problems taking your medications. Medication/Strength Dose Route Frequency Indications/Special Instructions/Comments/Notes warfarin (warfarin 2.5 mg oral tablet) See Instructions 5mg Sun, Tues & Thurs, 2.5mg all other days or as directed per INR Clinic as of 06/17/16 warfarin (Coumadin 2 mg oral tablet) See [...] 1 luther Topical two times a day Attention: If you have any medications at home that are not on this list, DO NOT take them until youcontact your provider for clarification. Give a copy of your medication list to your primary care provider. Update your medication list any time medications or doses are changed and carry your medication list at all times in case of emergency. Electronically Signed By: EMILY GALVAN MD Signed On:05-JUL-2016 21:11:37 Additional Information: Source: [facility] POWERCHART Document Id: [id number] SCIENTIST Miscellaneous - Emily Galvan M.D. - 07/05/2016 9:11 PM CST Ambulatory Patient Summary [address] [id number] Visit Information Name: DORITA MEDINA [facility] Number: [id number] Current Date: 07/05/2016 21:11:43 Physicians Attending Provider: EMILY GALVAN MD Primary Care Provider: TASHA HENRIQUEZ MD DORITA MEDINA has been given the following list of follow-up instructions, medication list, and patient education materials: Follow-up Instructions Your Medications Here is a list of your medications. It is important to take your medications as directed. Use a pillbox or chart to help remind you to take your medications. Please let your doctor or nurse know if you have problems taking your medications. Medication/Strength Dose Route Frequency Indications/Special Instructions/Comments/Notes warfarin (warfarin 2.5 mg oral tablet) See Instructions 5mg Sun, Melchores & Thurs, 2.5mg all other days or as directed per INR Clinic as of 06/17/16 warfarin (Coumadin 2 mg oral tablet) See [...] 1 luther Topical two times a day Attention: If you have any medications at home that are not on this list, DO NOT take them until youcontact your provider for clarification. Give a copy of your medication list to your primary care provider. Update your medication list any time medications or doses are changed and carry your medication list at all times in case of emergency. Electronically Signed By: EMILY GALVAN MD Signed On:05-JUL-2016 21:11:37 Your Allergies & Intolerances Substance Reaction Symptoms [...] Your Upcoming Appointments Date Time Location Provider 07/06/2016 16:30 Estefani Sanabria PT 07/07/2016 09:00 [facility] Lab Offsite 07/13/2016 16:30 Estefani Garce PT 07/14/2016 16:30 [facility] Estefani Rasmussen PT Attention: Contact your local Clinic if further [...] if you dont have one. Go to [email or web address] and click on Create Your Account. Then, follow the directions to complete the online form. Youll be asked for your [facility] number which you can find at the top of this document. Your Goals/Additional instructions: Source: [facility] POWERCHART Document Id: [id number] SCIENTIST Miscellaneous - Hussein Pineda, L.P.N. - 06/30/2016 4:14 PM CST Adult Machine Pan Greaser Intake/History Adult Machine Pan Greaser Intake/History Entered On: 06/30/2016 16:18 QC SCIENTIST Performed On: 06/30/2016 16:14 QC SCIENTIST by HUSSEIN PINEDA TWISTHAND Intake Chief Complaint : Yearly physical. Ambulatory Intake Additional Information : Discuss PAP. Discuss rescent rectal bleeding. Temperature Core : 36.5 DegC(Converted to: 97.7 DegF) Limb Alert Question : No Peripheral Pulse Rate : 72 /min Respiratory Rate : 16 /min Systolic Blood Pressure : 104 mmHg Diastolic Blood Pressure : 53 mmHg NIBP Mean : 70 mmHg BP Location : Right upper extremity Blood Pressure Cuff Size : Regular SpO2 : 99 % Oxygen Therapy : Room air Height : 146 cm(Converted to: 4 ft 9 inch(es), 57 inch(es)) Actual Weight : 74.3 kg(Converted to: 163 lb 13 oz) Dosing Weight Clinic : 74.3 kg Clinic BSA : 1.74 Body Mass Index : 34.86 kg/m2 HUSSEIN PINEDA LPN - 06/30/2016 16:14 QC SCIENTIST General Info Information Given By : Patient, Mother Preferred Communication Mode : Verbal Languages : Danish Is Patient Female and 13-50 no hysterectomy : Yes Status : Patient denies Are you ? : No HUSSEIN PINEDA LPN - 06/30/2016 16:14 QC SCIENTIST Subjective Pain Symptoms : No HUSSEIN PINEDA LPN - 06/30/2016 16:14 QC SCIENTIST Dependent Habits Exposure to Tobacco Smoke : Other: never smoker Smoking Status : Never smoker Tobacco 2A : No Tobacco Use/Currently Using : No Tobacco Use/Last 30 Days : No Tobacco Use/Last 12 months : No Alcohol Use : No HUSSEIN PINEDA LPN - 06/30/2016 16:14 QC SCIENTIST Caffeine Use Grid Caffeine Use : Current Type : Soft drinks Frequency : Occasionally Amount : pop HUSSEIN PINEDA LPN - 06/30/2016 16:14 QC SCIENTIST Recreational Drug Use Grid Drug Use : None HUSSEIN PINEDA LPN - 06/30/2016 16:14 QC SCIENTIST Source: [facility] Subject Company Document Id: [id number] QC SCIENTIST!46 SCIENTIST documented in this encounter Plan of Treatment Not on filedocumented as of this encounter Visit Diagnoses Not on filedocumented in this encounter
--- OUTSIDE RECORDS SUMMARY | 2022-04-25 16:00 | XMS_ITS | Encounter Summary ---
:1975 Author Organization [facility] Address [address] [place] [id number] Care Team Providers Name Role Phone Unavailable Primary Care Provider Unavailable Encounter Details Date Type Department Care Team Description 06/29/2016 - Hospital Encounter [facility]X [facility] Krish Marcos in 08/01/2016 Gabby Treviño Social History Tobacco Use Types Packs/Day Years [...] documented as of this encounter Progress Notes Roxana Cannon, P.T. - 06/29/2016 10:19 AM CST Pt came in with her father to evaluation. They wished to be seen in [place] at the [facility]. This was set up for them today. Order faxed to [place]. No evaluation performed today. Electronically Signed By: ROXANA CANNON DPT On: 06/29/2016 10:19 AM Source: [facility] POWERCHART Document Id: [id number] ER HELPER documented in this encounter Plan of Treatment Not on filedocumented as of this encounter Visit Diagnoses Not on filedocumented in this encounter
--- OUTSIDE RECORDS SUMMARY | 2022-04-25 16:00 | XMS_ITS | Encounter Summary ---
:1975 Author Organization [facility] Address [address] [place] [address] Care Team Providers Name Role Phone Unavailable Primary Care Provider Unavailable Encounter Details Date Type Department Care Team Description 07/28/2016 Hospital Encounter [facility] Marsha Henriquez M.D. [address] [place], [place] [address] (Wo rk) Social History [...] - - Height 146 cm (4' 9.48) 07/28/2016 7:13 AM CONTROLLED ATMOSPHERIC FURNACE BRAZER Body Mass Index - - documented in [...] Notes Miscellaneous - Meli Campo R.N. - 07/28/2016 11:18 AM CST Anticoagulation Patient Intake Anticoagulation Patient Intake Entered On: 07/28/2016 11:22 CONTROLLED ATMOSPHERIC FURNACE BRAZER Performed On: 07/28/2016 11:18 CONTROLLED ATMOSPHERIC FURNACE BRAZER by MELI CAMPO RN Plan INR goal range : 2.0 - 3.0 Duration of Therapy : Lifelong Tablet Size : 2 mg, 5 mg MELI CAMPO RN - 07/28/2016 11:18 CONTROLLED ATMOSPHERIC FURNACE BRAZER Anticoagulation Management Plan Grid Date : 09/05/2013 [...] darya BURGESS JM MELI Carroll RN - 07/28/2016 11:18 CONTROLLED ATMOSPHERIC FURNACE BRAZER MELI CAMPO RN - 07/28/2016 11:18 CONTROLLED ATMOSPHERIC FURNACE BRAZER MELI CAMPO - 07/28/2016 11:18 CONTROLLED ATMOSPHERIC FURNACE BRAZER EMLI CAMPO RN - 07/28/2016 11:18 CONTROLLED ATMOSPHERIC FURNACE BRAZER Date : 12/26/2013 CDT 01/30/2014 CDT 03/06/2014 [...] completed by : MELI Pradhan RN - 07/28/2016 11:18 CONTROLLED ATMOSPHERIC FURNACE BRAZER MELI CAMPO RN - 07/28/2016 11:18 CONTROLLED ATMOSPHERIC FURNACE BRAZER MELI CAMPO - 07/28/2016 11:18 CONTROLLED ATMOSPHERIC FURNACE BRAZER MELI CAMPO RN - 07/28/2016 11:18 CONTROLLED ATMOSPHERIC FURNACE BRAZER Date : 03/20/2014 CDT 03/27/2014 CDT 04/10/2014 [...] Other: Plan completed by : darya lackey [facility]/pharmacy MELI CAMPO RN - 07/28/2016 11:18 CONTROLLED ATMOSPHERIC FURNACE BRAZER MELI CAMPO RN - 07/28/2016 11:18 MELI ROJO - 07/28/2016 11:18 MELI ROJO RN - 07/28/2016 11:18 CONTROLLED ATMOSPHERIC FURNACE BRAZER Date : 04/17/2014 CDT 04/24/2014 CDT 05/01/2014 CONTROLLED ATMOSPHERIC FURNACE BRAZER 05/15/2014 CONTROLLED ATMOSPHERIC FURNACE BRAZER Location of INR sample : Lab Lab [...] will trynoted dose called to mom Fabiola [phone] called to Fabiola/no changes Called to mother/Fabiola, not awareof any changes Recommend Recheck : One week One week Two weeks Two weeks Plan completed by : MARIA GUADALUPE FITCH OZZY MELI COTA RN - 07/28/2016 11:18 MELI ROJO RN - 07/28/2016 11:18 MELI ROJO - 07/28/2016 11:18 MELI ROJO RN - 07/28/2016 11:18 CONTROLLED ATMOSPHERIC FURNACE BRAZER Date : 06/03/2014 CONTROLLED ATMOSPHERIC FURNACE BRAZER 06/05/2014 CONTROLLED ATMOSPHERIC FURNACE BRAZER 06/10/2014 CONTROLLED ATMOSPHERIC FURNACE BRAZER 06/11/2014 CONTROLLED ATMOSPHERIC FURNACE BRAZER Location of INR sample : Lab Type [...] Called motherFabiola. Hue will be staying in [place] 2wks post-surgery & have INR drawn there. [...] lovenox tomorrow AM as ordered. INR in [place] for next several weeks as pt will be recovering there. Recommend Recheck : Other: depending on Dr. Henriquez's preop. Other: 06/18 Other: 06/13/14 Plan completed by : MELI ROSADO RN - 07/28/2016 11:18 CONTROLLED ATMOSPHERIC FURNACE BRAZER MELI CAMPO RN - 07/28/2016 11:18 CONTROLLED ATMOSPHERIC FURNACE BRAZER MELI CAMPO LRN - 07/28/2016 11:18 CONTROLLED ATMOSPHERIC FURNACE BRAZER MELI CAMPO RN - 07/28/2016 11:18 CONTROLLED ATMOSPHERIC FURNACE BRAZER Date : 06/14/2014 CONTROLLED ATMOSPHERIC FURNACE BRAZER 06/14/2014 CONTROLLED ATMOSPHERIC FURNACE BRAZER 06/16/2014 CONTROLLED ATMOSPHERIC FURNACE BRAZER 06/23/2014 CONTROLLED ATMOSPHERIC FURNACE BRAZER Location of INR sample : Clinic Lab Lab Type of Sample : Venous Venous INR Result : 1.3 on 06/13 2.4 faxed from lab 2.0 Warfarin Dose : (pt took 2.5mg 06/13) 5mg Sat and 5mg Sun (06/14 and 06/15) 5mg Mon and 2.5mg all other days 5mg Mon and 2.5mg all other days Total Weekly Warfarin Dose : 20 20 Comment : [place] lab called with INR result from 06/13, reported they left a message with Dr. Henriquez and hadn't heard back, spoke with motherFabiola, and gave doses, continue Lovenox and repeat INR 06/16, message left with INR clinic in [place] to contact [facility] Please contact [facility] lab on 06/16 for result and may call Fabiola at [phone] with instructions call to Fabil[place]/will stop Lovenox injections and take noted dose/pt has an appt here in [place] 06/23 so will do lab appt here that day Called to Fabiola/ Hue will be back at [facility] by next draw. will have done on . no changes to meds/diet. Recommend Recheck : Two days One week Two weeks Plan completed by : MELI Vazquez LM, RN - 07/28/2016 11:18 CONTROLLED ATMOSPHERIC FURNACE BRAZER MELI CAMPO RN - 07/28/2016 11:18 MELI ROJO - 07/28/2016 11:18 MELI ROJO RN - 07/28/2016 11:18 CONTROLLED ATMOSPHERIC FURNACE BRAZER Date : 07/10/2014 CONTROLLED ATMOSPHERIC FURNACE BRAZER 07/17/2014 CONTROLLED ATMOSPHERIC FURNACE BRAZER 07/31/2014 CONTROLLED ATMOSPHERIC FURNACE BRAZER 09/11/2014 CDT Location of INR sample : [...] completed by : MELI Rubi RN - 07/28/2016 11:18 CONTROLLED ATMOSPHERIC FURNACE BRAZER MELI CAMPO RN - 07/28/2016 11:18 MELI ROJO - 07/28/2016 11:18 MELI ROJO RN - 07/28/2016 11:18 CONTROLLED ATMOSPHERIC FURNACE BRAZER Date : 09/12/2014 CDT 09/25/2014 CDT 10/02/2014 [...] completed by : MELI Owen RN - 07/28/2016 11:18 CONTROLLED ATMOSPHERIC FURNACE BRAZER MELI CAMPO RN - 07/28/2016 11:18 CONTROLLED ATMOSPHERIC FURNACE BRAZER MELI CAMPO - 07/28/2016 11:18 CONTROLLED ATMOSPHERIC FURNACE BRAZER MELI CAMPO RN - 07/28/2016 11:18 CONTROLLED ATMOSPHERIC FURNACE BRAZER Date : 10/23/2014 CDT 11/13/2014 CDT 11/20/2014 [...] is she is 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 mxHeroics/no bleeding/consult with Quintin/Pharmacy and called Mom with orders Per Meredith Hernandez, no changes, has been drinking some Kiwi Juice, no bleeding/consult with Quintin/Pharmacy Called to mom /Fabiola, no changes, rev'd w/BCarlson/Pharmacy Recommend Recheck : Three weeks One week One week One week Plan completed by : MELI Bailey RN - 07/28/2016 11:18 CONTROLLED ATMOSPHERIC FURNACE BRAZER MELI CAMPO RN - 07/28/2016 11:18 CONTROLLED ATMOSPHERIC FURNACE BRAZER MELI CAMPO - 07/28/2016 11:18 CONTROLLED ATMOSPHERIC FURNACE BRAZER MELI CAMPO RN - 07/28/2016 11:18 CONTROLLED ATMOSPHERIC FURNACE BRAZER Date : 12/04/2014 CDT 12/18/2014 CDT 01/15/2015 [...] completed by : MELI Shirley RN - 07/28/2016 11:18 CONTROLLED ATMOSPHERIC FURNACE BRAZER MELI CAMPO RN - 07/28/2016 11:18 CONTROLLED ATMOSPHERIC FURNACE BRAZER MELI CAMPON - 07/28/2016 11:18 CONTROLLED ATMOSPHERIC FURNACE BRAZER MELI CAMPO RN - 07/28/2016 11:18 CONTROLLED ATMOSPHERIC FURNACE BRAZER Date : 02/05/2015 CDT 02/26/2015 CDT 03/05/2015 [...] completed by : MELI CAMPOS RN - 07/28/2016 11:18 CONTROLLED ATMOSPHERIC FURNACE BRAZER MELI CAMPO RN - 07/28/2016 11:18 CONTROLLED ATMOSPHERIC FURNACE BRAZER MELI CAMPO - 07/28/2016 11:18 CONTROLLED ATMOSPHERIC FURNACE BRAZER MELI CAMPO RN - 07/28/2016 11:18 CONTROLLED ATMOSPHERIC FURNACE BRAZER Date : 04/09/2015 CDT 05/07/2015 CONTROLLED ATMOSPHERIC FURNACE BRAZER 06/04/2015 CONTROLLED ATMOSPHERIC FURNACE BRAZER 07/02/2015 CONTROLLED ATMOSPHERIC FURNACE BRAZER Location of INR sample : Lab Lab [...] completed by : MELI Keating RN - 07/28/2016 11:18 CONTROLLED ATMOSPHERIC FURNACE BRAZER MELI CAMPO RN - 07/28/2016 11:18 MELI ROJO - 07/28/2016 11:18 MELI ROJO RN - 07/28/2016 11:18 CONTROLLED ATMOSPHERIC FURNACE BRAZER Date : 08/06/2015 CONTROLLED ATMOSPHERIC FURNACE BRAZER 09/17/2015 CDT 10/29/2015 CDT 11/12/2015 CDT Location [...] completed by : MELI Edwards RN - 07/28/2016 11:18 CONTROLLED ATMOSPHERIC FURNACE BRAZER MELI CAMPO RN - 07/28/2016 11:18 CONTROLLED ATMOSPHERIC FURNACE BRAZER MELI CAMPO - 07/28/2016 11:18 CONTROLLED ATMOSPHERIC FURNACE BRAZER MELI CAMPO RN - 07/28/2016 11:18 CONTROLLED ATMOSPHERIC FURNACE BRAZER Date : 11/19/2015 CDT 12/03/2015 CDT 12/31/2015 [...] completed by : MELI Pickett RN - 07/28/2016 11:18 CONTROLLED ATMOSPHERIC FURNACE BRAZER MELI CAMPO RN - 07/28/2016 11:18 CONTROLLED ATMOSPHERIC FURNACE BRAZER MELI CAMPO - 07/28/2016 11:18 CONTROLLED ATMOSPHERIC FURNACE BRAZER MELI CAMPO RN - 07/28/2016 11:18 CONTROLLED ATMOSPHERIC FURNACE BRAZER Date : 02/19/2016 CDT 02/20/2016 CDT 02/21/2016 CDT 02/22/2016 CDT Location of INR sample : [facility] Type of Sample : Venous [...] Pharm.DMichael Brizuela PharmMichaelD. BAUDILIO, PharmD Eliseo Quezada, PharmD. JAVIERNATALIIAANTONI Simmons RN - 07/28/2016 11:18 CONTROLLED ATMOSPHERIC FURNACE BRAZER MELI CAMPO RN - 07/28/2016 11:18 CONTROLLED ATMOSPHERIC FURNACE BRAZER MELI CAMPO - 07/28/2016 11:18 CONTROLLED ATMOSPHERIC FURNACE BRAZER MELI CAMPO RN - 07/28/2016 11:18 CONTROLLED ATMOSPHERIC FURNACE BRAZER Date : 02/23/2016 CDT 02/24/2016 CDT 02/25/2016 [...] Eliseo Quezada, PharmD. MELI CAMPO RN - 07/28/2016 11:18 CONTROLLED ATMOSPHERIC FURNACE BRAZER MELI CAMPO RN - 07/28/2016 11:18 CONTROLLED ATMOSPHERIC FURNACE BRAZER MELI CAMPO - 07/28/2016 11:18 CONTROLLED ATMOSPHERIC FURNACE BRAZER MELI CAMPO RN - 07/28/2016 11:18 CONTROLLED ATMOSPHERIC FURNACE BRAZER Date : 02/27/2016 CDT 03/01/2016 CDT 03/04/2016 CDT 03/07/2016 CDT Location of INR sample [facility] Type of Sample : Venous Capillary/POC Venous Capillary/POC INR Result : 2.07 2.5 2.2 2.4 Warfarin Dose : 2 mg daily 2mg daily 2.5mg 03/04-03/06 2.5mg Mon,Sat,Sun Total Weekly Warfarin Dose : 14 15.5 Comment : Pt being discharged on Bactrim. Will fern picker rx for 2 mg tabs On bactrim 2 days left, has f/u in [place] on Monday. Pt mother states plan to return to [facility] on 03/06. next f/u [...] : MELI Bone RN, RN, RN - 07/28/2016 11:18 MELI ROJO RN - 07/28/2016 11:18 MELI ROJO - 07/28/2016 11:18 MELI ROJO RN - 07/28/2016 11:18 CONTROLLED ATMOSPHERIC FURNACE BRAZER Date : 03/11/2016 CDT 03/16/2016 CDT 03/31/2016 [...] [place] [facility] [place] she will have INR drawn in [place] again called to Fabiola/pt to do next INR at [facility] on a ./no changes called to Fabiola/no changes called to Fabiola/Mom,no changes/missed doses Recommend Recheck : Other: 03/16/16 Other: 03/31/16(2 weeks) One month Two weeks Plan completed by : MELI Lorenzana RN - 07/28/2016 11:18 MELI ROJO RN - 07/28/2016 11:18 MELI RJOO - 07/28/2016 11:18 MELI ROJO RN - 07/28/2016 11:18 CONTROLLED ATMOSPHERIC FURNACE BRAZER Date : 05/11/2016 CONTROLLED ATMOSPHERIC FURNACE BRAZER 05/12/2016 CONTROLLED ATMOSPHERIC FURNACE BRAZER 05/17/2016 CONTROLLED ATMOSPHERIC FURNACE BRAZER 05/24/2016 CONTROLLED ATMOSPHERIC FURNACE BRAZER Location of INR sample : Other: Dra[place] Other: [place] Other: [place] Type of Sample : INR Result : 1.6 2.4 1.8 Warfarin Dose : 2.5mg daily 2.5mg daily 5mg 05/24 then 2.5mg daily Total Weekly Warfarin Dose : 17.5 Comment : Per Mom/Fabiola, pt disch from [facility], fell & fx left humerus [...] completed by : MELI ODEN RN - 07/28/2016 11:18 CONTROLLED ATMOSPHERIC FURNACE BRAZER MELI CAMPO RN - 07/28/2016 11:18 MELI ROJO - 07/28/2016 11:18 MELI ROJO RN - 07/28/2016 11:18 CONTROLLED ATMOSPHERIC FURNACE BRAZER Date : 06/01/2016 CONTROLLED ATMOSPHERIC FURNACE BRAZER 06/06/2016 CONTROLLED ATMOSPHERIC FURNACE BRAZER 06/10/2016 CONTROLLED ATMOSPHERIC FURNACE BRAZER 06/13/2016 CONTROLLED ATMOSPHERIC FURNACE BRAZER Location of INR sample : Other: [place] Other: [facility] Other: [facility] Type of Sample : INR Result [...] completed by : MELI Wiggins RN - 07/28/2016 11:18 CONTROLLED ATMOSPHERIC FURNACE BRAZER MELI CAMPO RN - 07/28/2016 11:18 CONTROLLED ATMOSPHERIC FURNACE BRAZER MELI CAMPO - 07/28/2016 11:18 CONTROLLED ATMOSPHERIC FURNACE BRAZER MELI CAMPO RN - 07/28/2016 11:18 CONTROLLED ATMOSPHERIC FURNACE BRAZER Date : 06/17/2016 CONTROLLED ATMOSPHERIC FURNACE BRAZER 06/24/2016 CONTROLLED ATMOSPHERIC FURNACE BRAZER 07/07/2016 CONTROLLED ATMOSPHERIC FURNACE BRAZER 07/28/2016 CONTROLLED ATMOSPHERIC FURNACE BRAZER Location of INR sample : Other: [facility] CF Other: [facility] Lab Lab Type of [...] changes,pt is having tooth pulled 08/31/16 at [facility] Oral Surgery will need INR checked that am scheduled.letter faxed to [facility] oral surgery to see what INR needs leon Recommend Recheck : One week Other: 07/07/16 Three weeks Two weeks Plan completed by : MARIA GUADALUPE BURGESS NB MELI CAMPO RN - 07/28/2016 11:18 CONTROLLED ATMOSPHERIC FURNACE BRAZER MELI CAMPO RN - 07/28/2016 11:18 CONTROLLED ATMOSPHERIC FURNACE BRAZER MELI CAMPON - 07/28/2016 11:18 CONTROLLED ATMOSPHERIC FURNACE BRAZER MELI CAMPO RN - 07/28/2016 11:18 CONTROLLED ATMOSPHERIC FURNACE BRAZER Anticoagulation Assessment / History Visit : Phone management Plan of Care Date : 01/29/2008 CDT Primary Physician Anticoagulation : TASHA HENRIQUEZ MD 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 - 07/28/2016 10:22 AM CST Results Notification From: MELI CAMPO RN ( Anticoagulation Nurse) To: Anticoagulation Nurse; Sent: 07/28/2016 10:22:57 CONTROLLED ATMOSPHERIC FURNACE BRAZER Show up: 07/28/2016 10:23:00 CONTROLLED ATMOSPHERIC FURNACE BRAZER Subject: Results Notification Results: Date Result Name Value Ref Range 07/28/2016 08:03 PT 34.6 second(s) (8.8 - 11.9) 07/28/2016 08:03 INR 3.1 (0.9 - 1.2) Source: [facility] Document Id: [id number] documented in this encounter Plan of Treatment Not on filedocumented as of this encounter Procedures Procedure Name Priority Date/Time Associated Comments Diagnosis PROTHROMBIN TIME Routine 07/28/2016 8:03 AM Resul ts for this (PT), P CONTROLLED ATMOSPHERIC FURNACE BRAZER procedure are i n the results section. documented in this encounter Results (ABNORMAL) PT (Prothrombin Time) with INR (07/28/2016 8:03 AM CONTROLLED ATMOSPHERIC FURNACE BRAZER) [facility] Method Time Signature Prothrombin 34.6 (H) 8.8 - 11.9 POWERCHART Time, P [...] Time Location / / Volume Laterality Blood 07/28/2016 8:03 AM CONTROLLED ATMOSPHERIC FURNACE BRAZER Tasha Henriquez M.D. LAB BLOOD ADD-ON Performing Organization Address City/State/ZIP Code Phon e Number POWERCHART documented in this encounter Visit Diagnoses Not on filedocumented in this encounter
--- OUTSIDE RECORDS SUMMARY | 2022-04-25 16:00 | XMS_ITS | Encounter Summary ---
:1975 Author Organization [facility] Address [address] [place] [address] Care Team Providers Name Role Phone Unavailable Primary Care Provider Unavailable Encounter Details Date Type Department Care Team Description 05/08/2016 - Hospital Encounter HX [facility] EMERGENCY Provider, Historic al 05/09/2016 TRAUMA [facility]I Social History Tobacco Use Types Packs/Day Years [...] Date/Time Associated Comments Diagnosis PROTHROMBIN TIME Routine 05/08/2016 11:31 Results for this (PT), P PM CERTIFIED PERFORMANCE TECHNOLOGIST procedure are i n the results section. CBC WITH Routine 05/08/2016 11:31 Results for this DIFFERENTIAL, B PM CERTIFIED PERFORMANCE TECHNOLOGIST procedure ar e in the results section. BASIC METABOLIC Routine 05/08/2016 11:31 Results for this PANEL, S/P PM CERTIFIED PERFORMANCE TECHNOLOGIST procedure are i n the results section. documented in this encounter Results (ABNORMAL) CBC with Differential (05/08/2016 11:31 PM CERTIFIED PERFORMANCE TECHNOLOGIST) [facility] Method Time Signature Hemoglobin 11.5 (L) 12.0 - [facility] 15.5 G/DL LABORATORIES - [facility] Hematocrit 35.5 34.9 - [facility] 44.5 % [facility]ATOR[facility] - [facility] Leukocytes 5.8 3.5 - [facility] 10.5 LABORATORIES - X10(9)/L [facility] Neutrophils 4.32 1.70 - [facility] 7.00 LABORATORIES - X10(9)/L [facility] Lymphocytes 1.05 0.90 - [facility] 2.90 LABORATORIES - X10(9)/L [facility] Monocytes 0.42 0.30 - [facility] 0.90 LABORATORIES - X10(9)/L [facility] Erythrocytes 3.66 (L) 3.90 - [facility] 5.03 LABORATORIES - X10(12)/L [facility] MCV 97.0 81.6 - [facility] 98.3 FL [facility]ATOR[facility] - [facility] RBC Distrib 13.9 11.9 - [facility] Width 15.5 % [facility]ATOR[facility] - [facility] Platelet Count 130 (L) 150 - 450 [facility] X10(9)/L [facility] - [facility] Eosinophils 0.03 (L) 0.05 - [facility] 0.50 LABORATORIES - X10(9)/L [facility] Basophils 0.01 0.00 - [facility] 0.30 LABORATORIES - X10(9)/L [facility] Specimen Anatomical Collection Method Collection Time Receive d Time (Source) Location / / Volume Laterality 05/08/2016 11:31 05/08/2016 PM CERTIFIED PERFORMANCE TECHNOLOGIST 11:31 PM CERTIFIED PERFORMANCE TECHNOLOGIST Sridhar Mckinley M.D. LAB BLOOD ADD-ON Performing Organization Address City/State/ZIP Code Phon e Number [facility] LABORATORIES - [address] [place], [place] [address] [facility] (ABNORMAL) BMP (Basic Metabolic Panel) (05/08/2016 11:31 PM CERTIFIED PERFORMANCE TECHNOLOGIST) [facility] Method Time Signature Chloride, S 109 (H) 98 - 107 [facility] MMOL/L [facility] Creatinine 0.9 0.6 - 1.1 [facility] MG/DL [facility] - [facility] BUN (Blood Urea 11 6 - 21 [facility] Nitrogen), S MG/DL [facility] - [facility] HX Bicarbonate, 27 22 - 29 [facility] P/S MMOL/L [facility] - [facility] Sodium, P 144 135 - 145 [facility] MMOL/L [facility] - [facility] Potassium, P 4.3 3.6 - 5.2 [facility] MMOL/L [facility] - [facility] eGFR >60 >60 [facility] Non-Black/Afric ML/MIN/BS LABORATORIES - an Mauritian A [facility] eGFR-Black/Afri >60 >60 [facility] can Mauritian ML/MIN/BS LABORATORIES - A [facility] Glucose, S 105 70 - 140 [facility] MG/DL [facility] - [facility] Anion Gap 8 7 - 15 [facility]ATOR[facility] - [facility] Specimen Anatomical Collection Method Collection Time Receive d Time (Source) Location / / Volume Laterality 05/08/2016 11:31 05/08/2016 PM CERTIFIED PERFORMANCE TECHNOLOGIST 11:31 PM CERTIFIED PERFORMANCE TECHNOLOGIST Sridhar Mckinley M.D. LAB BLOOD ADD-ON Performing Organization Address City/State/ZIP Code Phon e Number [facility] LABORATORIES - [address] [place] [phone] [facility] (ABNORMAL) PT (Prothrombin Time) with INR (05/08/2016 11:31 PM CERTIFIED PERFORMANCE TECHNOLOGIST) [facility] gist Method Time Signature Prothrombin 17.5 (H) 9.5 - [facility] Time, P 13.8 SEC [facility] - [facility] INR 1.6 0.8 - 1.2 [facility] - [facility] Specimen Anatomical Collection Method Collection Time Receive d Time (Source) Location / / Volume Laterality 05/08/2016 11:31 05/08/2016 PM CERTIFIED PERFORMANCE TECHNOLOGIST 11:31 PM CERTIFIED PERFORMANCE TECHNOLOGIST Sridhar Mckinley M.D. LAB BLOOD ADD-ON Performing Organization Address City/State/ZIP Code Phon e Number [facility] LABORATORIES - [address] [place] [phone] [facility] documented in this encounter Visit Diagnoses Not on filedocumented in this encounter
--- OUTSIDE RECORDS SUMMARY | 2022-04-25 16:00 | XMS_ITS | Encounter Summary ---
:1975 Author Organization [facility] Address [address] [place] [address] Care Team Providers Name Role Phone Unavailable Primary Care Provider Unavailable Encounter Details Date Type Department Care Team Description 05/24/2016 Hospital Encounter HX [facility] Marsha Garibay M.D. [address] [place], [place] [address] (Wo rk) Social History [...] - - Height 137 cm (4' 5.94) 05/24/2016 9:05 AM PHYS ASST Body Mass Index - - documented in [...] Date/Time Associated Comments Diagnosis PROTHROMBIN TIME Routine 05/24/2016 9:10 AM Resul ts for this (PT), P PHYS ASST procedure are i n the results section. documented in this encounter Results (ABNORMAL) PT (Prothrombin Time) with INR (05/24/2016 9:10 AM PHYS ASST) [facility] Method Time Signature Prothrombin 19.0 (H) 8.8 - 11.9 POWERCHART Time, P SECONDS INR 1.8 (H) 0.9 - 1.2 POWERCHART Comment: Recommended INR for prophylaxis/treatme nt of Venous Thrombosis, Pulmonary Embolism, Myocardial Infarction, and Embolism from Atrial Fibrillation is 2.0- 3.0 (Standard Therapy) Recommended INR for Mechanical Heart Tejal ves and recurrent Systemic Embolism is 2.5-3.5 (Intensive Therapy) Specimen (Source) Anatomical Collection Method Collection Time Re ceived Time Location / / Volume Laterality Blood 05/24/2016 9:10 AM PHYS ASST Sridhar Garibay M.D. LAB BLOOD ADD-ON Performing Organization Address City/State/ZIP Code Phon e Number POWERCHART documented in this encounter Visit Diagnoses Not on filedocumented in this encounter
--- OUTSIDE RECORDS SUMMARY | 2022-04-25 16:01 | XMS_ITS | Encounter Summary ---
:1975 Author Organization [facility] Address [address] [place] [address] Care Team Providers Name Role Phone Unavailable Primary Care Provider Unavailable Encounter Details Date Type Department Care Team Description 02/18/2016 - Hospital Encounter HX [facility] ABDIRIZAK Xu Brasher 02/21/2016 INPT/OBSRV Gabby Barba [id number] [id number] Social History Tobacco Use Types Packs/Day Years Used Date Smoking Tobacco: Never Assessed Sex Assigned at Date Recorded Not on file documented as of this encounter Last Filed Vital Signs Vital Sign Reading Time Taken Comments Blood Pressure 111/46 02/21/2016 5:31 AM CDT Pulse 71 02/21/2016 5:31 AM CDT Temperature - - Respiratory Rate 18 02/21/2016 5:31 AM CDT Oxygen Saturation - - Inhaled Oxygen Concentration - - Weight 83 kg (182 lb 15.7 oz) 02/18/2016 2:00 PM CDT Height 148 cm (4' 10.27) 02/21/2016 5:31 AM CDT Body Mass Index 37.89 02/18/2016 2:00 PM CDT documented in this encounter Discharge Summaries Martha Cabral M.D. - 02/21/2016 8:09 AM CDT Hospital Discharge Summary REASON FOR ADMISSION Dorita is a 41-year-old female who had right lower extremity redness, swelling, and pain. She was diagnosed with cellulitis and initially treated as an outpatient however she had numerous visits to urgent care and the emergency department and it was determined that she should be admitted for IV antibiotics. DISCHARGE MEDICATIONS acetaminophen 500 mg oral tablet, 1,000 mg, 2 tab(s), PO, q6hr, PRN chlorhexidine 0.12% mucous membrane liquid, 0.018 gm, 15 mL, PO, Bedtime lactobacillus rhamnosus GG oral capsule, 1 cap(s), PO, 2xDay multivitamin, 1 tab, PO, Daily Prevident 5000 Plus topical paste, 1 luther, Topical, 2xDay, * traMADol 50 mg oral tablet, 50 mg, 1 tab(s), PO, q4hr, PRN warfarin 5 mg oral tablet, Zosyn 3 g-0.375 g intravenous injection, 3.375 gm, IV, q6hr * indicates non-compliance List Documented Prior to Med History Completed VITAL SIGNS T: 37.1 ??C (Core) HR: 71 RR: 18 BP: 111 / 46 SpO2: 96% HT: 148 cm WT: 83.0 kg BMI: 37.89 FOOTNOTES [1]Hospital Progress Note (SOAP); MARTHA ARTHUR MD 02/20/2016 11:29 CDT DATE OF ADMISSION 02/18/2016 DATE OF DISCHARGE 02/21/2016 PRIMARY DIAGNOSIS 1. Cellulitis Leg R 2. Insufficiency Renal 3. Deep Venous Thrombosis Pers Hx HOSPITAL COURSE Patient was started on IV Zosyn and the redness was improving. She continued to have swelling and fairly significant pain. Pain medicine was advanced to tramadol. To ensure a successful outpatient transition, it was decided that patient should be transferred to swing bed to complete her antibiotics and work on mobility as she lives at home by herself. Patient initially had some renal insufficiency that normalized. She has a history of DVT, and was continued on Coumadin. She did have an elevated INRwhich required altered dosing per pharmacy. PROCEDURES PERFORMED None PENDING STUDIES None CONDITION AT DISCHARGE Fair DISCHARGE DISPOSITION [facility] Transitional [facility] DISCHARGE INSTRUCTIONS/FOLLOW UP RECOMMENDATIONS Patient will continue with current medications and work on mobility. Regular diet. Follow up will be arranged after discharge from TCU. Electronically Signed By: MARTHA ARTHUR MD On: 02/21/2016 08:14 AM Source: [facility] POWERCHART Document Id: [id number] documented in this encounter Medications at Time [...] 12/31/2019 topically 2 (two) times a day. documented as of this encounter Progress Notes Martha Cabral M.D. - 02/20/2016 11:29 AM CDT Hospital Progress Note (SOAP) SUBJECTIVE Today Kathy reports that she does not think her leg has changed much. She continues to have painthat is especially bothersome with walking. It is still swollen. She has had a couple of episodes ofloose stools but otherwise no chest pain, shortness of breath, or abdominal pain. She is very nervous about going home because she has a hard time walking right now due to the pain. VITAL SIGNS HR: 68 RR: 16 BP: 108 / 68 SpO2: 92% PHYSICAL EXAMINATION General: Alert and oriented. No acute distress. Cardiovascular exam: Regular rate and rhythm. Normal S1 and S2. No murmurs, rubs, or gallops. Lungs: Clear to auscultation bilaterally. Abdomen: Soft. Nontender. No masses, rebound, guarding. Normoactive bowel sounds. Extremities: Left lower leg with trace pedal edema and some brown hyperpigmentation/venous stasis changes. On the right lower leg, patient has 1+ pedal edema with erythema anteriorly. This is decreased compared to the outline of affected area and no longer extends into the ankle/foot. It is very tender to palpation and continues to be a little warm. LAB RESULTS -----HEMATOLOGY----- Hgb: 11.7 Low 02/20/16 Hct: 36.2 02/20/16 WBC: 4.4 02/20/16 RBC: 3.56 Low 02/20/16 MCV: 101.7 High 02/20/16 RDW: 13.4 02/20/16 Platelet: 159 02/20/16 Neutro Absolute: 3.23 02/20/16 Lymph Absolute: 0.77 Low 02/20/16 [place] Absolute: 0.37 02/20/16 Eos Absolute: 0.03 Low 02/20/16 Baso Absolute: 0.01 02/20/16 PT: 59.5 High 02/20/16 INR: 4.76 High 02/20/16 -----CHEMISTRY----- Sodium Lvl: 134.8 Low 02/20/16 Potassium Lvl: 4.1 02/20/16 Chloride: 103 02/20/16 CO2: 22.4 Low 02/20/16 AGAP: 9 Low 02/20/16 Alkaline Phosphatase: 121 High 02/20/16 Glucose Lvl: 107 02/20/16 Creatinine: 1.15 02/20/16 EGFR (MDRD): 52 Low 02/20/16 EGFR (MDRD): >60 02/20/16 BUN: 14 02/20/16 Calcium Lvl: 8.6 02/20/16 Protein Total: 6.6 02/20/16 Albumin Lvl: 2.6 Low 02/20/16 AST: 34 02/20/16 ALT: 39 02/20/16 Bili Total: 0.4 02/20/16 CRP: 97.9 High 02/20/16 ASSESSMENT/PLAN 1. Cellulitis Leg R Erythema appears to be improving compared to the outline when she first came in. Patient still complains of significant pain and swelling. We are going to increase her pain medication to tramadol and continue the Zosyn. Blood culture negative thus far, but CRP is still fairly elevated although I do not know what it was on admission to compare. We will reassess in the morning and if patient has not had further improvement, we will transfer her to swing bed. She lives on her own and does not yet feelready to go home. 2. Insufficiency Renal NOS Kidney function has normalized today. 3. Deep Venous Thrombosis Pers Hx Patient is chronically anticoagulated and her INR is elevated today. Pharmacy is managing but will likely hold her Coumadin today. Orders: traMADol, 50 mg = 1 tab(s), PO, q4hr, PRN Pain, Tab, 02/20/16 11:24:00 CDT Electronically Signed By: MARTHA ARTHUR MD On: 02/20/2016 11:33 AM Source: [facility] POWERCHART Document Id: [id number] Genet Baldwin, P.T. - 02/20/2016 10:06 AM CDT Physical Therapy Initial Evaluation Physical Therapy Initial Evaluation Entered On: 02/20/2016 10:18 CDT Performed On: 02/20/2016 10:06 CDT by GENET BALDWIN General Info Reason for Referral to Physical Therapy : Other: strength and gait Physical Therapy Orders : Physical Therapy Screening - 02/18/16 23:38:52 CDT Precautions to Rehabilitation Treatment : Fall risk Pain Symptoms : Yes Orientation : Oriented x 3 Safety/Judgment : Intact Basic Command Following : Intact GENET BALDWIN - 02/20/2016 10:06 CDT Pain Scale Pain Scale Verbal 0-10 : Open GENET BALDWIN - 02/20/2016 10:06 CDT Pain Pain Assessment Grid Pain 1 Location : Lower leg (Comment: Cellulitis of right lower ext [GENET BALDWIN - 02/20/2016 10:06 CDT] ) Laterality : Right Intensity : 5 GENET BALDWIN - 02/20/2016 10:06 CDT Home Environment Living Environment : Living Situation: Home independently Current Home Treatments: None Home Devices/Equipment None 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 [employer] Resources: None Sensory Deficits: Cognitive deficit Performed by: SAYDA ANDREWS RN-02/18/16 14:34:00 Lives In : Apartment Lives With : Alone GENET BALDWIN - 02/20/2016 10:06 CDT Rehabilitation Stairs Grid Inside Stairs Outside Stairs Number of Stairs : 0 0 Comments (Comment: elevator [GENET BALDWIN - 02/20/2016 10:06 CDT] ) GENET BALDWIN 02/20/2016 10:06 CDT GENET BALDWIN 02/20/2016 10:06 CDT Patient's Responsibilities : Hobbies, Housework, Work NICOLASA GENET Boyce 02/20/2016 10:06 CDT Prior Functional Level Grid Bed Mobility : Independent Transfers : Independent Ambulation at Home : Independent Community Ambulation : Independent Stairs : Independent Car Transfers : Independent Toilet Transfers : Independent Upper Extremity Bathing : Independent Lower Extremity Bathing : Independent Upper Extremity Dressing : Independent Lower Extremity Dressing : Independent Grooming : Independent GENET BALDWIN 02/20/2016 10:06 CDT Musculoskeletal PT Range of Motion Grid Left Upper Extremity : Active Within Normal Limits, Passive Within Normal Limits Right Upper Extremity : Active Within Normal Limits, Passive Within Normal Limits Left Lower Extremity : Active Within Normal Limits, Passive Within Normal Limits Right Lower Extremity : Active Within Normal Limits, Passive Within Normal Limits GENET BALDWIN 02/20/2016 10:06 CDT Left Upper Extremity Strength : Normal 5 Right Upper Extremity Strength : Normal 5 Left Lower Extremity Strength : Normal 5 Right Lower Extremity Strength : Normal 5 GENET BALDWIN 02/20/2016 10:06 CDT Balance/Mobility Balance Tests Performed : Other: Patient is stable with ambulation. She ambulates slowly secondary to pain in right lower extremity due to cellulitis. Patient was ambulating without an assistive deviceprior to cellulitis. GENET BALDWIN 02/20/2016 10:06 CDT Sitting/Standing Balance Grid Sitting Balance : Good Standing Balance : Good GENET BALDWIN 02/20/2016 10:06 CDT Mobility Grid Roll Left : Independent Roll Right : Independent Supine to Sit : Independent Sit to Supine : Independent Scooting : Independent Sit to Stand : Standby assist Stand to Sit : Standby assist Bed to/from Chair : Standby assist Toilet Transfer : Standby assist GENET BALDWIN 02/20/2016 10:06 CDT Ambulation Level : Standby assistance Ambulation Distance : 100 m Ambulation Repetitions : 1 Ambulation Device Utilized : Front wheeled walker Ambulation Quality : Steady with ambulation using 2ww. No LOB or deviation in gait. Partial wt bearing at this time on right secondary to pain Gait Deviations Left Lower Extremity : Decreased stride length Gait Deviations Right Lower Extremity : Decreased stride length, Decreased weightbearing GENET BALDWIN - 02/20/2016 10:06 CDT Assessment Rehabilitation Potential : Good PT Problem List : Decreased activity tolerance PT Clinical Assessment : At this time, pain is the limiting factor for Jade. She has Down's Syndrome but is mostly independent living. Up to this point, she was working and ambulating without an asstive device. She does require some assist with toileting and possibly dressing for the next several days until her pain improves. Recommend discharge from hospital to her parent's home for 1-2 weeks and then back to her apt. At that point, they may wish to consider a home safety evaluation if not feeling secure in her surroundings of her apt. Formal physical therapy is not necessary at this time. GENET BALDWIN - 02/20/2016 10:06 CDT Goals PT Patient/Caregiver Goal : Patient to be discharged from hospital into the care of her parents for the next 1-2 weeks depending upon her pain tolerance. GENET BALDWIN - 02/20/2016 10:06 CDT Plan PT Frequency : Daily PT Duration : One day GEENT BALDWIN - 02/20/2016 10:06 CDT DC Recommendations Discharge To, Anticipated : Home with family snf Equipment, Anticipated : Walker Walker Specifics : Front wheeled walker Professional Skilled Services, Anticipated : None GENET BALDWIN - 02/20/2016 10:06 CDT PT Charge Registration Status - PT : Inpatient: Hospital/TCU PT Evaluation Time : 40 minute(s) Physical Therapy Evaluation Charges : Yes PT Number of Patient Visits : 1 PT Visit, Inpatient : Yes GENET BALDWIN - 02/20/2016 10:06 CDT [facility] [employer] Document Id: [id number] CDT!92 Ximena Jara P.T. - 02/19/2016 4:30 PM CDT Physical Therapy Initial Evaluation Physical Therapy Initial Evaluation Entered On: 02/19/2016 16:41 CDT Performed On: 02/19/2016 16:30 CDT by XIMENA JARA General Info Reason for Referral to Physical Therapy : Other: strength and gait Physical Therapy Orders : Physical Therapy Screening - 02/18/16 23:38:52 CDT Physical Therapy Evaluate & Treat - 02/18/16 15:31:00 CDT, strength and stability/gate Precautions to Rehabilitation Treatment : Fall risk Pain Symptoms : Yes Orientation : Oriented x 3 Safety/Judgment : Intact Basic Command Following : Intact ESTEFANIDONNYXIMENA L - 02/19/2016 16:30 CDT Pain Scale Pain Scale Verbal 0-10 : Open XIMENA JARA Iris - 02/19/2016 16:30 CDT Pain Pain Assessment Grid Pain 1 Location : Lower leg ESTEFANIXIMENA Gutierrez Iris - 02/19/2016 16:30 CDT Home Environment Living Environment : Living Situation: Home independently Current Home Treatments: None Home Devices/Equipment None 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 According to ED note she had been staying with her parents while she has beensick. [ESTEFANIELIASXIMENA L - 02/19/2016 16:30 CDT] ) ESTEFANI XIMENA L - 02/19/2016 16:30 CDT Prior Functional Level Grid Bed Mobility : Independent (Comment: per patient [ELIAS JARARONNY Simmons - 02/19/2016 16:30 CDT] ) Transfers : Independent Ambulation at Home : Independent Community Ambulation : Independent Stairs : Independent Car Transfers : Independent Toilet Transfers : Independent Upper Extremity Bathing : Independent Lower Extremity Bathing : Independent Upper Extremity Dressing : Independent Lower Extremity Dressing : Independent Grooming : Independent ESTEFANIELIASXIMENA L - 02/19/2016 16:30 CDT Vital Signs Height : 148 cm(Converted to: 4 ft 10 inch(es)) XIMENA JARA - 02/19/2016 16:30 CDT Musculoskeletal PT Range of Motion Grid Left Upper Extremity : Other Right Upper Extremity : Other Left Lower Extremity : Other Right Lower Extremity : Other ESTEFANI XIMENA Simmons - 02/19/2016 16:30 CDT Left UE Range of Motion Detailed : Functional Right UE Range of Motion Detailed : Functional Left LE Range of Motion Detailed : Functional Right LE Range of Motion Detailed : Functional XIMENA JARA 02/19/2016 16:30 CDT Balance/Mobility Sitting/Standing Balance Grid Sitting Balance : Good Standing Balance : Good (Comment: using walker due to leg pain [XIMENA JARA 02/19/2016 16:30 CDT] ) XIMENA JARA 02/19/2016 16:30 CDT Mobility Grid Roll Left : Independent Roll Right : Independent Supine to Sit : Independent Sit to Supine : Independent Scooting : Independent Sit to Stand : Independent Stand to Sit : Independent Bed to/from Chair : Independent XIMENA JARA 02/19/2016 16:30 CDT Ambulation Level : Standby assistance (Comment: requires walker [XIMENA JARA 02/19/2016 16:30 CDT] ) Ambulation Distance : 15 m Ambulation Repetitions : 1 Ambulation Device Utilized : Front wheeled walker Ambulation Quality : ambulated with the right lower extremtiy straight despite verbal cues. Patient did well with the walker. She ambulated without the use of an assistive device prior, but requires the walker at this time for safety and to unweight the right LE for pain. XIMENA JARA 02/19/2016 16:30 CDT Assessment Rehabilitation Potential : Good PT Problem List : Ambulation deficits PT Clinical Assessment : Patient was admitted for cellulitis in the right lower extremtiy. She has underlying Down's Syndrome. Patient requires physical therapy to normalize her gait pattern and to reduce fall risk. Plan of care will focus on gait training. XIMENA JARA 02/19/2016 16:30 CDT Goals PT Stand Goal : Complete independence PT Stand Goal Time Frame : 5 day(s) PT Ambulation Goal : Complete independence PT Ambulation Distance Goal : 50 m PT Ambulation Goal Time Frame : 5 day(s) PT Stairs Goal : Complete independence PT Stair Goal - Number of Stairs : 1 flight PT Stair Goal Time Frame : 5 day(s) XIMENA JARA 02/19/2016 16:30 CDT Plan PT Frequency : Other: 5 days per week. PT Duration : One week PT Anticipated Treatments : Gait training XIMENA JARA 02/19/2016 16:30 CDT DC Recommendations Discharge To, Anticipated : Home with family snf Equipment, Anticipated : Walker Walker Specifics : Front wheeled walker XIMENA JARA - 02/19/2016 16:30 CDT Education PT Education Grid Topics : Ambulation with roller walker Individuals Taught : Patient XIMENA JARA - 02/19/2016 16:30 CDT PT Charge Registration Status - PT : Inpatient: Hospital/TCU PT Evaluation Time : 15 minute(s) Physical Therapy Evaluation Charges : Yes PT Visit, Inpatient : Yes XIMENA JARA - 02/19/2016 16:30 CDT Source: [employer] Document Id: [id number] CDT!92 Xu Brasher M.D. - 02/19/2016 12:00 AM CDT [id number] Recheck on right lower extremity cellulitis. She is tolerant of Zosyn that is being used for her every 6 hours. No diarrhea. No complaints of abdominal pain. Her appetite is good and she is on her feetalso. PHYSICAL EXAMINATION VITAL SIGNS: 36.9 degrees, 68 beats, 16 respirations, 102/57 blood pressure. LUNGS: Clear. CARDIAC: S1, S2. ABDOMEN: Rotund, bowel sounds positive. EXTREMITIES: Right lower extremity from the distal 1/3 of the anterior medial leg to the ankle and upper foot there is resolving erythema. There is still 2 to 3+ edema, it is not pitting. SKIN: Intact. There is no open erosions or fissures and there is no weeping. LABORATORY White blood cell count of 4.7, INR 4.72, sodium and potassium 137 and 3.8 respectively, and creatinine 1.50. IMPRESSION 1. Cellulitis. Signs for improvement. Continue parenteral antibiotics and cultures drawn in [place] still [place]. 2. Supratherapeutic INR. Coumadin to be on hold and recheck to follow. Dosing per pharmacy. 3. Acute renal failure with a change in her creatinine from 1.06 on admission yesterday to 1.50 today. Will follow this tomorrow with repeat measure, otherwise stable. Xu Brasher M.D./erin Electronically Signed By: XU BRASHER MD On: 02/20/2016 03:07 PM Source: [facility] MHSDOLBEYNONRADSYS Document Id: [id number] documented in this encounter H&P Notes Xu Brasher M.D. - 02/18/2016 1:46 PM CDT [id number] Document Contains Addenda REVISION HISTORY February 24, 2016. 10:49 a.m. - Duplicate report, recreated to correct the location and encounter. Cellulitis of leg Patient: DORITA SHEFFIELD Age: 41 years Sex: Female : 1975 Author: XU BRASHER MD Attachments: None Associated Diagnosis: Cellulitis Leg R Basic Information Time seen: Date & time 02/18/2016 10:28:00, Sabrina Cha am scribing for and in the presence of Beau ShultzP, Sukh, Sabrina Cha am scribing for and in the presence of Corey Emery DO.. History source: Patient, mother, father. Arrival mode: Private vehicle, wheelchair. History limitation: None. Additional information. History of Present Illness 41 year old female with history of cellulitis, lower extremity DVT, and underlying Down's syndrome presents to the ED for evaluation of lower extremity cellulitis. On 02/13/16 patient was seen in forevaluation of right lower extremity pain without any injury. Her CBC and D-dimer were negative and INR was 2.0. Patient was diagnosed with a right distal tibial contusion but presented to UC the following day due to increased lower extremity pain, swelling, and redness. RLE US was negative for DVT. She was diagnosed with RLE cellulitis and prescribed a 7 day cycle of doxycycline. Patient presents today for evaluation of the right lower extremity cellulitis that has been present for the past 1 week. It is worsening and spreading past area outlined by father. It continues to be red, hot, and swollen.She says she feels hot, but has been afebrile per parents. She is on anticoagulation and mom is concerned about her INR. No blood in urine or stool. Review of Systems Constitutional symptoms: No fever, no chills or no sweats. Skin symptoms: Lower extremity discoloration, but no abrasions. Eye symptoms: Vision unchanged. ENMT symptoms: No ear pain, no sore throat or no nasal congestion. Respiratory symptoms: No shortness of breath, no cough or no wheezing. Cardiovascular symptoms: No chest pain, no palpitations or no peripheral edema. Gastrointestinal symptoms: No abdominal pain, no nausea, no vomiting, no diarrhea or no constipation. Genitourinary symptoms: No dysuria or no hematuria. Musculoskeletal symptoms: Lower extremity cellulitis with associated pain and swelling, but no back pain or no Muscle pain. Neurologic symptoms: No headache, no dizziness or no weakness. Health Status Allergies: Nonallergic Reactions (Selected) Severity Not Documented Bee Stings- No reactions were documented. Chloramphenicol containing compounds- No reactions were documented. Quinolone antibiotics- No reactions were documented.. Medications: (Selected) Inpatient Medications Ordered Coumadin: 2.5 mg, 1 tab(s), PO, Once Saline flush: 10 mL, IV Push, 2xDay Saline flush: 10 mL, IV Push, PRN, PRN: Maintain IV access multivitamin: 1 tab, PO, Daily sodium chloride 0.9% 250 mL: flush bag, IV warfarin per pharmacy: 1 each, Message, Daily Incomplete NEW MED: See Instructions Prescriptions Prescribed warfarin 5 mg oral tablet: See Instructions, 5 mg Mon, 2.5 mg all other days or as directed by the INR Clinic as of 12/30/2015, 54 tab(s), 11 Refill(s) Documented Medications Documented NEW MED: See Instructions, Rx mouth wash - daily PreviDent 5000 Plus topical paste: 1 luther, Topical, 2xDay multivitamin: 1 tab, PO, Daily. Past Medical/ Family/ Social History Medical history: Active Impaired Fasting Glucose (ICD-9-CM 790.21): Onset on 07/22/2010 at 35 years. Comments: - Impaired fasting glucose Mixed Hyperlipidemia (ICD-9-CM 272.2): Onset on 07/22/2010 at 35 years. Comments: - Mixed hyperlipidemia Recommend lifestyle changes (diet, exercise, weight loss) Phlebitis and Thrombophlebitis of Other Deep Vessels of Lower Extremities (ICD-9-CM 451.19): Onset on 06/08/2007 at 32 years. Comments: - Phlebitis and thrombophlebitis of other deep vessels of lower extremities, Reviewed as documented inchart. Surgical history: Laparoscopic cholecystectomy ([id number]) on 06/11/2014 at 39 Years. AV - Atrioventricular valve operation ([id number]) on 03/29/2013 at 38 Years. 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 Papanicolaou smear taken ([id number]) on 07/19/2010 at 35 Years. I and [...] Aunt (Maternal): onset at 59 . . Social history: Alcohol use: Occasionally, Tobacco use: Denies, Drug use: Denies, Family/social situation: Intact family. 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 Physical Examination Vital Signs: Vital Signs 02/18/2016 14:00 CDT Temperature Core 37.3 DegC Peripheral Pulse Rate 85 /min Respiratory Rate 18 /min SpO2 97 % Systolic Blood Pressure 110 mmHg Diastolic Blood Pressure 72 mmHg Mean Arterial Pressure 85 mmHg BP Location Right upper 02/18/2016 10:24 CDT Temperature Core 37 DegC Peripheral Pulse Rate 82 /min Respiratory Rate 16 /min SpO2 98 % Systolic Blood Pressure 113 mmHg Diastolic Blood Pressure 69 mmHg , Measurements 02/18/2016 14:00 CDT Height 148 cm Height Source Stated Dosing Weight 83.00 kg Actual Weight 83.0 kg Weight Source Chair scale Body Mass Index 37.89 kg/m2 02/18/2016 13:48 CDT Height 148 cm 02/18/2016 10:24 CDT Dosing Weight 83.90 kg Actual Weight 83.9 kg Weight Source Bed scale , SpO2 02/18/2016 14:00 CDT SpO2 97 % 02/18/2016 10:24 CDT SpO2 98 % . General: Alert and no acute distress. Skin: Warm, dry and pink. Head: Normocephalic. Neck: Supple and trachea midline. Eye: Normal conjunctiva. Ears, nose, mouth and throat: No pharyngeal erythema or exudate. Cardiovascular: Regular rate and rhythm. Respiratory: Lungs are clear to auscultation. Medical Decision Making Differential Diagnosis:: Cellulitis. Rationale: Patient presents for 3rd visit in less than one week for RLE cellulitis. Previous US ruled out DVT and she is anticoagulated. The cellulitis is extending past previously outlined area. Despite 4 days antibiotic no improvement on doxycycline she will be admitted for IV antibiotics. No signs of systemic infection, afebrile, and no tachycardia. Will obtain baseline BMP, CBC, lactate, and blood cultures prior to IV antibiotic. Will give one dose of clindamycin 600 mg IV. Lactate within normallimits and no leukocytosis. . Documents reviewed: Prior records. Orders Launch Order Profile (Selected) Inpatient Orders Ordered Activities of Daily Living Adult: Activity Point of Care: Activity: Basic Metabolic Panel: Bladder Scan: CBC (includes Auto Differential): [facility] Inpatient Certification: Chart Checks: Consult to Bus Dispatcher [place]: Cough and Deep Breathe: Coumadin: 2.5 mg, 1 tab(s), PO, Once Diet: Discharge Planning Ongoing: Elevate Head of Bed: IV-Peripheral: Intake and Output: Notification: RT Order: Notify Provider Vital Signs: Notify Provider Vital Signs: Notify Provider Vital Signs: Notify Provider Vital Signs: Notify Provider Vital Signs: Notify Provider Vital Signs: Occupational Therapy Evaluate & Treat: Occupational Therapy Screening: Ongoing Assessment Adult: Oxygen Therapy (Provider): PT/INR: Patient Placement: Peripheral IV: Pharmacy Warfarin Daily Monitoring/Dosing: Pharmacy Warfarin PRN Monitoring/Dosing: Physical Therapy Evaluate & Treat: Pulse Oximetry: Quality Measures 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 Adult Protocol: Resuscitation Status: Review Plan of Care/Nursing Protocols: Saline Lock: Saline flush: 10 mL, IV Push, 2xDay Saline flush: 10 mL, IV Push, PRN, PRN: Maintain IV access Transfer Patient Externally-ED: Vital Signs: Vital Signs: Weight: Weight: multivitamin: 1 tab, PO, Daily sodium chloride 0.9% 250 mL: flush bag, IV warfarin per pharmacy: 1 each, Message, Daily Ordered (Dispatched) PT/INR: Ordered (In-Lab) Culture Blood: Culture Blood: Future (On Hold) A1c: Anticoagulation Clinic Order: Glucose Fasting: Glucose Fasting: Glucose Level: INR/ProTime: Lipid Panel*: Lipid Panel*: Lipid Panel*: Return Visit Fam Med - Physical Extended: TSH Plus (Ft4 If Indicated): Incomplete NEW MED: See Instructions Prescriptions Prescribed warfarin 5 mg oral tablet: See Instructions, 5 mg Mon, 2.5 mg all other days or as directed by the INR Clinic as of 12/30/2015, 54 tab(s), 11 Refill(s) Documented Medications Documented NEW MED: See Instructions, Rx mouth wash - daily PreviDent 5000 Plus topical paste: 1 luther, Topical, 2xDay multivitamin: 1 tab, PO, Daily. Results review: Reexamination/ Reevaluation 1150 Patient lives in [place], but has been staying with parents during this illness. They would like patient to be admitted in [place] for convenience factor. We did notify [place] [facility] and they did agree to admit patient from [facility]. Patient is clinicallystable and afebrile. 1245 Patient ate 100% of lunch without difficulties. Voided. Impression and Plan Diagnosis Cellulitis Leg R (Discharge, Medical) Calls-Consults -XU BRASHER MD, recommends Admit IV antibiotics. OK to travel by POV.. Plan Condition: Stable. Disposition: Admit to Inpatient Unit. Counseled: Patient, Family, Regarding diagnosis, Regarding diagnostic results, Regarding treatment plan, Regarding prescription, Patient indicated understanding of instructions, Family verbalizes understanding and agrees with plan. Addendum Above reviewed and confirmed. Patient seen and examined. Presents after failed outpatient treatment for antibiotics. Will admit to hospital under acute care for an expected stay of a least 2 overnights. Zosyn medication of choice. Will monitor progress daily. Signature Line Electronically Signed By: XU BRASHER MD On: 02/18/2016 03:42 PM Xu Brasher M.D./lindsey Electronically Signed By: XU BRASHER MD On: 02/25/2016 10:58 PM Source: [facility] MHSDOLBEYNONRADSYS Document Id: [id number] documented in this encounter Nursing Notes Ana Jonas - 02/21/2016 4:28 AM CDT Progress Note NEURO: Alert and oriented x4, bed alarm in place active and audible. RESP: lung sounds clear all collado. Dry cough, IS introduced. CARDIAC: Distant HS, +2 RLE edema, encouraged to elevate. GI: bowel sounds present all four quadrants, passing gas, multiple loose watery BM continues. : voiding without difficulty, adequate UO PAIN: tylenol and tramadol given with relief for RLE pain, pt sleeping post pain intervention. Essential oils also utilized during shift for adequate pain control. ACTIVITY: standby assist with gait belt and walker. SKIN: RLE is reddedned and edematous, no open area. Scattered psoriasis present. DIET: regular IV: left antecubital saline locked, WDL. Electronically Signed By: ANA JONAS RN On: 04/23/2016 07:49 PM Source: [facility] POWERCHART Document Id: [id number] Ana Jonas - 02/21/2016 4:27 AM CDT PRN Response PRN Response Entered On: 02/21/2016 4:27 CDT Performed On: 02/21/2016 4:27 CDT by ANA JONAS RN Intervention Information: acetaminophen Performed by ANA JONAS RN on 02/21/2016 03:14:00 CDT acetaminophen,1000mg PO,Pain / Fever PRN Medication Effectiveness Evaluation PRN Medication Effective : Other: Pt sleeping Post Medication Pain Assessment : N/A ANA JONAS RN - 02/21/2016 4:27 CDT Source: [employer] Document Id: [id number] CDT!4 Ana Jonas - 02/20/2016 9:47 PM CDT PRN Response PRN Response Entered On: 02/20/2016 21:48 CDT Performed On: 02/20/2016 21:47 CDT by ANA JONAS RN Intervention Information: tramadol Performed by ANA JONAS RN on 02/20/2016 21:05:00 CDT traMADol,50mg PO,Pain PRN Medication Effectiveness Evaluation PRN Medication Effective : Yes Post Medication Pain Assessment : 4 ANA JONAS RN - 02/20/2016 21:47 CDT Source: [employer] Document Id: [id number] CDT!4 Sabrina Medina RMichaelNMichael - 02/20/2016 5:39 PM CDT Progress Note ADLs-How much help does the patient need to_ Wash_assist of 1 for lower extremities and back r/t patient states I have short arms Dress_minimum assist with upper half, assist of 1 for lower half r/t pain in RLE Mouth care/dentures_independent Shower/bath_showered 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 Patient toleratedwell and walking has improved since yesterday. Patient bearing more weight on RLE and complains of less pain upon ambulation. Bowel and Bladder _ Continent or incontinent_continent of bowel and bladder Wear adult briefs_yes r/t diarrhea episodes Assistance needed with toileting_patient refused to perform own leeanna cares this shift stating I have short arms and my mom said I need help too. This nurse encouraged patient to perform own cares asshe had the previous day each time while using the restroom. Patient continued to refuse stating I might go to a senior care and they will do it for me there. Medications or procedures (scanning, training, meds, cat)_n/a Activities_ Offered and how much time did they spend on it_patient had visitors totaling 10 hours this shift, also talked on telephone, took a nap for 1 hour, and watched television this shift Positioning/chair time/offloading/pressure relief_patient repositioned self in bed this shift. Refused to be up in recliner chair. Was up to restroom every 1 hour or so to offload and ambulate within the room. 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 Encouraged patient to perform as many of these tasks independently as possible due tomaintaining independence for discharge. Alarms_none; patient called appropriately all shift and did not try to get up without assistance Memory difficulties_none Sleeping difficulties and how well do they sleep_none Wounds/skin care_NONE Summary of Dressing changes_ Skin Breakdown_ Oxygen use_NONE New or chronic oxygen use_ Liters needed_ Attempts to wean (Oxygen sats with and without oxygen, at rest and with activity)_ PICC or peripheral line_peripheral LAC Dressing appearance_clean, dry, intact Dressing change_n/a Problems with flushing or drawing from line_none Isolation Needs_NO Yes/No_ Type_ Education_ What is the education need_Encourage indpendence of ADL cares Who needs the education_patient How is education going and what are the barriers, if any_ Electronically Signed By: SABRINA MEDINA RN On: 02/20/2016 05:47 PM Source: [employer] Document Id: [id number] Sabrina Medina R.N. - 02/20/2016 2:09 PM CDT Focused Assessment - Gastrointestinal Focused Assessment - Gastrointestinal Entered On: 02/20/2016 14:10 CDT Performed On: 02/20/2016 14:09 CDT by SABRINA MEDINA RN Gastrointestinal GI Patient Stated Symptoms : Diarrhea Abdomen Description : Obese, Rounded, Symmetric Abdomen Palpation : Non-Tender, Soft Bowel Movement Last Date : 02/20/2016 CDT Bowel Sounds All Quadrants : Present Stool Color : Brown Stool Description : Liquid, Loose Stool Amount : Small Passing Flatus : Yes SABRINA MEDINA RN - 02/20/2016 14:09 CDT Source: [employer] Document Id: [id number] CDT!11 Sabrina Medina R.N. - 02/20/2016 11:01 AM CDT PRN Response PRN Response Entered On: 02/20/2016 11:08 CDT Performed On: 02/20/2016 11:01 CDT by SABRINA MEDINA RN Intervention Information: acetaminophen Performed by SABRINA MEDINA RN on 02/20/2016 10:05:00 CDT acetaminophen,1000mg PO,Pain / Fever PRN Medication Effectiveness Evaluation PRN Medication Effective : Yes Post Medication Pain Assessment : 2 SABRINA MEDINA RN - 02/20/2016 11:08 CDT Source: [employer] Document Id: [id number] CDT!4 Ana Jonas - 02/20/2016 5:15 AM CDT PRN Response PRN Response Entered On: 02/20/2016 5:16 CDT Performed On: 02/20/2016 5:15 CDT by ANA JONAS RN Intervention Information: acetaminophen Performed by ANA JONAS RN on 02/20/2016 03:45:00 CDT acetaminophen,1000mg PO,Pain / Fever PRN Medication Effectiveness Evaluation PRN Medication Effective : Other: Pt sleeping Post Medication Pain Assessment : 0 ANA JONAS RN - 02/20/2016 5:15 CDT Respiratory Respirations : Unlabored Respiratory Pattern : Regular ANA JONAS RN - 02/20/2016 5:15 CDT Source: [employer] Document Id: [id number] CDT!7 Ana Jonas - 02/20/2016 4:09 AM CDT Shift summary Document Contains Addenda Addendum by ANA JONAS RN on February 20, 2016 5:55 CDT (2) Diarrhea episodes overnight Modified by and Electronically Signed by: ANA JONAS RN On: 02/20/2016 05:55 AM Addendum by ANA JONAS RN on February 20, 2016 4:37 CDT (1) Diarrhea episode overnight Modified by and Electronically Signed by: ANA JONAS RN On: 02/20/2016 04:37 AM NEURO: Alert and oriented x4, bed alarm in place active and audible. RESP: lung sounds clear all collado. CARDIAC: S1S2 auscultated, heart rate regular, +2 RLE edema, encouraged to elevate. GI: bowel sounds present all four quadrants, passing gas, had loose BM overnight. : voiding without difficulty, adequate UO PAIN: tylenol given with relief for RLE pain, pt sleeping post pain intervention. Essential oils also utilized during shift for adequate pain control. ACTIVITY: standby assist with gait belt and walker. SKIN: RLE is reddedned and edematous, no open area. Scattered Psoriasis present. DIET: regular IV: left antecubital saline locked, WDL. Electronically Signed By: ANA JONAS RN On: 02/20/2016 04:19 AM Source: [employer] Document Id: [id number] Ana Jonas - 02/19/2016 11:02 PM CDT PRN Response PRN Response Entered On: 02/19/2016 23:03 CDT Performed On: 02/19/2016 23:02 CDT by ANA JONAS RN Intervention Information: acetaminophen Performed by ANA JONAS RN on 02/19/2016 21:25:00 CDT acetaminophen,1000mg PO,Pain / Fever PRN Medication Effectiveness Evaluation PRN Medication Effective : Yes Post Medication Pain Assessment : 4 ANA JONAS RN - 02/19/2016 23:02 CDT Source: [employer] Document Id: [id number] CDT!4 Sabrina Medina R.N. - 02/19/2016 5:13 PM CDT Shift Note ADLs-How much help does the patient need to_ Wash_assist of 1 with lower body and back because patient states I have sore arms. Dress_minimum assist of 1 Mouth care/dentures_independent Shower/bath_assist of 1 as stated in wash section Transfer assistance_assist of 1 gait belt and walker r/t sore right lower extremity cellulitis Ambulate and distance_patient ambulated once this shift total of 34 meters Bowel and Bladder _ Continent or incontinent_continent of bowel and bladder Wear adult briefs_no Assistance needed with toileting_patient requested this nurse to perform leeanna cares this shift - after encouragement patient was able to perform own leeanna cares successfully with cueing and encouragment. Medications or procedures (scanning, training, meds, cat)_none Activities_ Offered and how much time did they spend on it_patient had parents stay with her majority of shift,sister also visited, patient watched television totaling 10 hours. Napped for 2 hours this shift. Positioning/chair time/offloading/pressure relief_patient repositioned self in bed and was offloaded when up to bathroom and out for walk. Therapies_ Walking program/ROM_patient ambulated once this shift total of 34 meters with assist of 1, gait belt, walker. tolerated well. Special equipment (CPM, sling, brace)_tubeagrip applied to right lower extremity to assist with swelling of RLE r/t cellulitis Appetite_ Dietary needs/orders (textures, supplements, adaptive equipment/restriction)_general Assistance with eating_independent Amount of supplements completed_n/a Behavior_ Behaviors and what are they_NONE Alarms_yes Memory difficulties_no Sleeping difficulties and how well do they sleep_no reports of difficulty sleeping Wounds/skin care_NONE Summary of Dressing changes_ Skin Breakdown_psoriasis patches noted on multiple places of body Oxygen use_NONE New or chronic oxygen use_ Liters needed_ Attempts to wean (Oxygen sats with and without oxygen, at rest and with activity)_ PICC or peripheral line_peripheral Dressing appearance_clean, dry, intact Dressing change_n/a Problems with flushing or drawing from line_none Isolation Needs_ Yes/No_No Type_ Education_ What is the education need_ Who needs the education_ How is education going and what are the barriers, if any_ Electronically Signed By: SABRINA MEDINA RN On: 02/19/2016 05:18 PM Source: [facility] POWERCHART Document Id: [id number] Sabrina Medina R.N. - 02/19/2016 4:00 PM CDT PRN Response PRN Response Entered On: 02/19/2016 16:26 CDT Performed On: 02/19/2016 16:00 CDT by SABRINA MEDINA RN Intervention Information: acetaminophen Performed by SABRINA MEDINA RN on 02/19/2016 15:03:00 CDT acetaminophen,1000mg PO,Pain / Fever PRN Medication Effectiveness Evaluation PRN Medication Effective : Yes Post Medication Pain Assessment : 2 SABRINA MEDINA RN - 02/19/2016 16:25 CDT Source: [employer] Document Id: [id number] CDT!4 Sabrina Medina R.N. - 02/19/2016 9:50 AM CDT PRN Response PRN Response Entered On: 02/19/2016 9:50 CDT Performed On: 02/19/2016 9:50 CDT by SABRINA MEDINA RN Intervention Information: acetaminophen Performed by SABRINA MEDINA RN on 02/19/2016 08:55:00 CDT acetaminophen,1000mg PO,Pain / Fever PRN Medication Effectiveness Evaluation PRN Medication Effective : Yes Post Medication Pain Assessment : 2 SABRINA MEDINA RN - 02/19/2016 9:50 CDT Source: [employer] Document Id: [id number] CDT!4 Mabel Nair R.N. - 02/19/2016 9:25 AM CDT Status ED: 02/18/16 @ 1024 Placement: 02/18/16 @ 1534 ?? After thorough review of this patients case by case management, it has been determined that an inpatient status is appropriate based on the doctors certification and expected length of stay. Refer to the physicians documentation regarding the patients medical history, the severity of the patients signs and symptoms, comorbidities, risk of adverse events, as well as medical diagnostic procedures anticipated during the stay; all these factors support the inpatient stay. Electronically Signed By: MABEL NAIR RN On: 02/19/2016 09:26 AM Source: [employer] Document Id: [id number] Stacia Stone R.N. - 02/19/2016 5:14 AM CDT shift summary NEURO: Alert and oriented x4, using call light appropriately, bed alarm in place for safety RESP: lung sounds clear throughout, sats WNL on room air CARDIAC: S1S2 auscultated, heart rate regular, does have some RLE edema, encouraged to elevate when in bed GI: bowel sounds present all four quadrants, passing gas, had BM yesterday : voiding without difficulty, denies pain or burning with urination PAIN: tylenol given with relief for RLE pain ACTIVITY: standby assist with gait belt and walker SKIN: patient has psoriasis, RLE is reddedned and edematous, no open areas DIET: regular IV: left antecubital saline locked, blood aspirated and flushed with no difficulties Electronically Signed By: STACIA STONE RN On: 02/19/2016 05:21 AM Source: [employer] Document Id: [id number] Stacia Stone R.N. - 02/19/2016 5:13 AM CDT PRN Response PRN Response Entered On: 02/19/2016 5:14 CDT Performed On: 02/19/2016 5:13 CDT by STACIA STONE RN Intervention Information: acetaminophen Performed by STACIA STONE RN on 02/19/2016 02:32:00 CDT acetaminophen,1000mg PO,Pain / Fever PRN Medication Effectiveness Evaluation PRN Medication Effective : Yes (Comment: patient sleeping [STACIA STONE RN - 02/19/2016 5:13 CDT] ) Post Medication Pain Assessment : N/A STACIA STONE RN - 02/19/2016 5:13 CDT Pain Scale Pain Scale Non-Verbal PainAD : Open STACIA STONE RN - 02/19/2016 5:13 CDT PAINAD Breathing : Normal breathing Negative vocalization : None Facial expression : Smiling or inexpressive Body language : Relaxed Consolability : No need to console PAINAD Score : 0 STACIA STONE RN - 02/19/2016 5:13 CDT Source: [facility] Document Id: [id number] CDT!13 Sayda Andrews R.N. - 02/18/2016 5:26 PM CDT PRN Response PRN Response Entered On: 02/18/2016 17:26 CDT Performed On: 02/18/2016 17:26 CDT by SAYDA ANDREWS RN Intervention Information: acetaminophen Performed by SAYDA ANDREWS RN on 02/18/2016 16:44:00 CDT acetaminophen,1000mg PO,Pain / Fever PRN Medication Effectiveness Evaluation PRN Medication Effective : Yes Post Medication Pain Assessment : 7 SAYDA ANDREWS RN - 02/18/2016 17:26 CDT Source: [facility] POWERCHART Document Id: [id number] CDT!4 Sayda Andrews R.N. - 02/18/2016 4:17 PM CDT Admission Note Pt admitted to hospital Acute for cellulitis in her RLE from [place] [facility]. Lung sounds clear, heart rate regular, bowel sounds positive and normal. Pt has Downs Syndrome and is high functioning, livingon her own [place]. Parents accompanied pt to unit via wheelchair. Pt ambulates at home with a chair, here using a walker and is an assist of 1 with a gait belt/ walker. General diet. Pain 10/10, need to ask pt if pain is better or worse after an intervention, pt rates pain 10/10 and needs to be explained the pain scale every time she is asked. Tylenol given for pain. Pt needs help putting pants on and wiping. Psoriasis noted all over body with no open sores on buttox, legs, arms and stomach. Healed surgical incisions on L inner knee, lap sites on left abd, lateral incision from hear surgery. Lotion applied to legs. Pt very pleasant, details get confused, but pt alert and oriented. Electronically Signed By: SAYDA ANDREWS RN On: 02/18/2016 04:26 PM Source: [employer] Document Id: [id number] Sayda Andrews R.N. - 02/18/2016 3:08 PM CDT Protocol Vascular Access Adult Protocol Vascular Access Adult Entered On: 02/18/2016 15:08 CDT Performed On: 02/18/2016 15:08 CDT by SAYDA ANDREWS RN Vascular Access Adult Protocol Age 15 years or older Adult Protocol : Yes Vascular Access Device Adult : Yes Exclusion Criteria Adult Vascular Access Protocol : Patient has none of the below exclusions Vascular Access Protocol Status Adult : Criteria Met SAYDA ANDREWS RN - 02/18/2016 15:08 CDT Source: [employer] Document Id: [id number] CDT!6 documented in this encounter Miscellaneous Notes Miscellaneous - Conversion, Historical Provider Ser - 02/21/2016 8:02 AM CDT Coding Summary-Paper Based CODING DATE: 03/01/2016 FINAL [facility] STATUS: Disch/Trans w/in Inst Medicare Swing Bed PAYOR: Medicare Advantage Grouper: 603 MS-DRG Cellulitis w/o [facility] ADMIT DX: L03.115 Cellulitis of right lower limb REASON FOR VISIT DX: FINAL DX: PRINCIPAL: L03.115 Y Cellulitis of right lower limb SECONDARY: N17.9 N Acute kidney failure, unspecified Q90.9 Down syndrome, unspecified 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 However, the narrative phrase printed from the coding software may appear abbreviated, or result in slightly different terminology. Revised Coded By: SALO GARCIA Revised Date Saved: 02/24/2016 09:49 am [facility] Document Id: [id number] Miscellaneous - Ana Jonas - 02/20/2016 7:50 PM CDT Adult Ongoing Assessment Adult Ongoing Assessment Entered On: 02/20/2016 19:50 CDT Performed On: 02/20/2016 19:50 CDT by ANA JONAS RN Respiratory All [place]obes Breath Sounds : Clear Cough and Deep Breathe : Done Cough : None Sputum Amount : None Sputum Color : Clear Suction : None ANA JONAS RN - 02/20/2016 20:12 CDT Respiratory Patient Stated Symptoms : None Respirations : Unlabored Distress : None Respiratory Pattern : Regular ANA JONAS RN - 02/20/2016 19:50 CDT Cardiovascular CV Patient Stated Symptoms : None Heart Rhythm : Regular Heart Sounds ICU : S1S2 Antiembolism Device Yes/No : Yes Nail Bed Color : [place] Capillary Refill : Less than 2 seconds Edema Assessment : Yes ANA JONAS RN - 02/20/2016 20:12 CDT Radial Pulse, Left : 2+ Normal Radial Pulse, Right : 2+ Normal Dorsalis Pedis Pulse, Left : 2+ Normal Dorsalis Pedis Pulse, Right : 1+ Thready ANA JONAS RN - 02/20/2016 20:12 CDT Skin Color : Normal for ethnicity Skin Description : Dry, Rash Skin Temperature : Warm Activity Tolerance : Minimal distress ANA JONAS RN - 02/20/2016 20:12 CDT Edema Details Edema Detailed Grid Ankle Edema Left : 2+ mild/4mm ANA JONAS RN - 02/20/2016 20:12 CDT Antiembolism Device Antiembolism Device Status : Patient refused ANA JONAS RN - 02/20/2016 20:12 CDT Neurological Neuro Patient Stated Symptoms : None Orientation : Oriented x 3, Other: Downs Syndrome Level of Consciousness : Alert Gait : Unsteady Swallowing Difficulty/Aspiration Risk : None Last Well Time Known : Not applicable ANA JONAS RN - 02/20/2016 20:12 CDT [place] Coma Eye Opening Response Kathleen : Spontaneously Best Verbal Response Kathleen : Oriented Best Motor Response [place] : Obeys simple commands Kathleen Coma Score : 15 KING ANA Boyce RN - 02/20/2016 20:12 CDT Oral Assessment Lips : Smooth, pink, moist, intact Gingiva : [place], smooth, moist, intact Tongue : Smooth, pink, moist, intact Teeth : Minimal debris, mostly between teeth Saliva : Thin, watery, plentiful ANA JONAS - 02/20/2016 20:12 CDT Psycho/Emotional Affect/Behavior : Calm, Cooperative, Appropriate, Other: Downs Syndrome Pain Symptoms : Yes Feels Rested : Yes ANA JONAS RN - 02/20/2016 20:12 CDT Safety Grid Vision, Hearing, Mobility Adequate to Meet Safety Needs : Yes ANA JONAS RN - 02/20/2016 20:12 CDT Pain Scale Pain Scale Verbal 0-10 : Open ANA JONAS RN - 02/20/2016 20:12 CDT Effects of Pain Grid Appetite : None Concentration : None Daily Life : None Emotions : Moderate Relationships : Mild Sleep : Mild Work/School : None ANA JONAS RN - 02/20/2016 20:12 CDT Pain Pain Assessment Grid Pain 1 Location : Lower leg Laterality : Right Intensity : 0 ANA JONAS RN - 02/20/2016 20:12 CDT Gastrointestinal GI Patient Stated Symptoms : None Bowel Movement Last Date : 02/20/2016 CDT ANA JONAS RN - 02/20/2016 20:12 CDT Nutrition Appetite : Excellent Eating Difficulties : None Feeding Ability : Complete independence ANA JONAS RN - 02/20/2016 20:12 CDT Genitourinary Patient Stated Symptoms : None ANA JONAS RN - 02/20/2016 20:12 CDT Integumentary Integumentary Patient Stated Symptoms : None Skin Turgor : Elastic Skin Integrity : Intact Mucous Membrane Color : [place] Mucous Membrane Description : Moist ANA JONAS RN - 02/20/2016 20:12 CDT Skin Abnormality/Location Grid Location : Lower leg Other: all over body, arms, butt, legs Laterality : Right Abnormality : Excoriation, Flaking, Other: tight Other: psoriasis ANA JONAS RN - 02/20/2016 20:12 CDT ANA JONAS RN - 02/20/2016 20:12 CDT Senior Product Engineer Integumentary - Grid Senior Product Engineer : Other: Tubeagrip ANA JONAS RN - 02/20/2016 20:12 CDT Skin Color : Normal for ethnicity Skin Description : Dry Skin Temperature : Warm ANA JONAS RN - 02/20/2016 20:12 CDT Incision/Wound Incision/Wound Care Grid Type : Other: cellulitis Location : Lower leg Laterality : Right ANA JONAS RN - 02/20/2016 20:12 CDT Mando Sensory Perception Mando : No impairment Moisture Mando : Rarely moist Activity Mando : Walks occasionally Mobility Mando : Slightly limited Nutrition Mando : Excellent Friction and Shear Mando : Potential problem Mando Score : 20 ANA JONAS RN - 02/20/2016 20:12 CDT Musculoskeletal Musculoskeletal Patient Stated Symptoms : Joint swelling ANA JONAS RN - 02/20/2016 20:12 CDT Musculoskeletal Joint Asmt Ultragrid Joint Assessment #1 Location : Ankle, right Assessment : Edema present Range of Motion : Limited motion, active ANA JONAS RN - 02/20/2016 20:12 CDT Musculoskeletal Strength Grid Right Lower Extremity Strength : Weak - holds for < 10 sec (arm) or < 5 sec (leg) Dorsiflexion : Moderate Toe Extension : Moderate Plantar/Palmar Flexion : Moderate Sensation : Intact ANA JONAS RN - 02/20/2016 20:12 CDT Peripheral IV Peripheral IV Assess/Intervention Grid Peripheral IV #1 IV Activity : Assessment Date of Insertion : 02/18/2016 CDT IV Site : Antecubital Laterality : Left Catheter Size : 20 Site Condition : No complications Infiltration Score : 0 Phlebitis Score : 0 ANA JONAS RN - 02/20/2016 20:12 CDT Hendrich II Fall Risk Confusion/Disorientation Hendrich : No Depression Fall Risk Hendrich : No Altered Elimination Fall Risk Hendrich : Yes Dizziness/Vertigo Fall Risk Hendrich : No Gender, Male Fall Risk Hendrich : No Prescribed Antiepileptics Hendrich : No Prescribed Benzodiazepines Hendrich : No Rising From Chair Fall Risk Hendrich : Pushes up, successful in one attempt Fall Risk Score Hendrich II : 2 ANA JONAS RN - 02/20/2016 20:12 CDT Safe Patient Handling Safe Pt Handling Independent : No Safe Pt Handling Supervision/Minimal Assistance : Yes - Unmotorized Equipment Safe Pt Handling Equipment Rec : Unmotorized Equipment Repositioning Device Recommended : No ANA JONAS RN - 02/20/2016 20:12 CDT Education General Patient Education Power[employer] Topics : Pain Management, Turn/Cough/Deep breathing Individuals Taught : Patient Barriers to Learning : Cognitive deficit, Emotional state Teaching Method : Demonstration, Explanation Teaching Evaluation : Needs further teaching, Needs practice/supervision, Needs reinforcement ANA JONAS RN - 02/20/2016 20:12 CDT [facility] [employer] Document Id: [id number] CDT!162 Enriquetacelllucian - Sabrina Medina R.N. - 02/20/2016 4:22 PM CDT Adult Activities of Daily Living Adult Activities of Daily Living Entered On: 02/20/2016 16:23 CDT Performed On: 02/20/2016 16:22 CDT by SABRINA MEDINA RN ADLs I Activity Assistance : Supervision/Minimum 1 person assistance Assistive Device : Gait belt, Walker Ambulation Distance : 34 m(Converted to: 111 ft 7 inch(es), 3,400 cm) Ambulation Patient Effort : Good SABRINA MEDINA RN - 02/20/2016 16:22 CDT [facility] [employer] Document Id: [id number] CDT!6 Miscellaneous - Eliane Benjamin, C.N.AMichael - 02/20/2016 4:00 PM CDT Adult Activities of Daily Living Adult Activities of Daily Living Entered On: 02/20/2016 17:00 CDT Performed On: 02/20/2016 16:00 CDT by ELIANE BENJAMIN CNA ADLs II Hygiene Assistance Grid Back Rub : Maximum assistance Foot Care : Maximum assistance Hair Care : Minimum assistance Leeanna Care : Moderate assistance Shower : Moderate assistance Upper Body Dressing(Clothing) : Independent Lower Body Dressing(Clothing) : Moderate assistance ELIANE BENJAMIN CNA - 02/20/2016 16:57 CDT Bowel Movement Last Date : 02/20/2016 CDT Standard Safety : Bed alarm ON, Bed in low position, Call device within reach, Gait belt, Non-Slip footwear ELIANE BENJAMIN CNA - 02/20/2016 16:57 CDT Source: [employer] Document Id: [id number] CDT!12 [place] - Eliane Benjamin, C.N.A. - 02/20/2016 2:30 PM CDT Adult Activities of Daily Living Adult Activities of Daily Living Entered On: 02/20/2016 17:01 CDT Performed On: 02/20/2016 14:30 CDT by ELIANE BENJAMIN CNA ADLs I Patient Position : Other: ambulation Activity Status ADL : Ambulating in preciado Ambulation Distance : 30 m(Converted to: 98 ft 5 inch(es), 3,000 cm) Ambulation Patient Effort : Good ELIANE BENJAMIN CNA - 02/20/2016 17:00 CDT Source: [employer] Document Id: [id number] CDT!6 Misyohana - Sasha Brizuela Pharm.D., R.Ph. - 02/20/2016 12:10 PM CDT Anticoagulation Patient Intake Anticoagulation Patient Intake Entered On: 02/20/2016 12:10 CDT Performed On: 02/20/2016 12:10 CDT by SASHA BRIZUELA Pharm.D., R.Ph. Plan INR goal range : 2.0 - 3.0 Duration of Therapy : Lifelong Tablet Size : 5 mg SASHA BRIZUELA Pharm.D., R.Ph. - 02/20/2016 12:10 CDT Anticoagulation Management Plan Grid Date : [...] Plan completed by : darya BURGESS JM SASHA Og Pharm.D., R.Ph. - 02/20/2016 12:10 CDT SASHA BRIZUELA Pharm.D., R.Ph. - 02/20/2016 12:10 CDT SASHA BRIZUELA Pharm.D., R.Ph. - 02/20/2016 12:10 CDT SASHA BRIZUELA Pharm.D., R.Ph. - 02/20/2016 12:10 CDT Date : 12/26/2013 CDT 01/30/2014 CDT [...] 03/10/2014 Other: 03/20/14 Plan completed by : SASHA Henson Pharm.D., R.Ph. - 02/20/2016 12:10 CDT SASHA BRIZUELA Pharm.Rohit, R.Ph. - 02/20/2016 12:10 CDT SASHA BRIZUELA Pharm.D., R.Ph. - 02/20/2016 12:10 CDT SASHA BRIZUELA Pharm.D., R.Ph. - 02/20/2016 12:10 CDT Date : 03/20/2014 CDT 03/27/2014 CDT [...] Mom, she is going to check with Dorita to see if she is drinking Cranberry [...] Other: Plan completed by : darya lackey [facility]/pharmacy SASHA BRIZUELA Pharm.Rohit, R.Ph. - 02/20/2016 12:10 CDT SASHA BRIZUELA Pharm.D., R.Ph. - 02/20/2016 12:10 CDT SASHA BRIZUELA Pharm.D., R.Ph. - 02/20/2016 12:10 SASHA REILLY Pharm.D., R.Ph. - 02/20/2016 12:10 CDT Date : 04/17/2014 CDT 04/24/2014 CDT 05/01/2014 BANQUET BARTENDER 05/15/2014 BANQUET BARTENDER Location of INR sample : Lab Lab [...] will trynoted dose called to mom Fabiola [phone] called to Fabiola/no changes Called to mother/Fabiola, not awareof any changes Recommend Recheck : One week One week Two weeks Two weeks Plan completed by : SASHA BENTON Pharm.D., R.Ph. - 02/20/2016 12:10 CDT SASHA BRIZUELA.Rohit, R.Ph. - 02/20/2016 12:10 CDT SASHA BRIZUELA.Valentina., R.Ph. - 02/20/2016 12:10 CDT SASHA BRIZUELA.Rohit, R.Ph. - 02/20/2016 12:10 CDT Date : 06/03/2014 BANQUET BARTENDER 06/05/2014 BANQUET BARTENDER 06/10/2014 BANQUET BARTENDER 06/11/2014 BANQUET BARTENDER Location of INR sample : Lab Type [...] Will have pre-op 06/09. Will message Dr. Garibay to check about when to stop coumadin and if bridging needed. Called to mother/Fabiola. Per message from Dr. Garibay, stop coumadin 5days prior to surgery (06/06) with no bridging. Called motherDiane. Dorita will be staying in [place] 2wks post-surgery & have INR drawn there. [...] lovenox tomorrow AM as ordered. INR in [place] for next several weeks as pt will be recovering there. Recommend Recheck : Other: depending on Dr. Garibay's preop. Other: 06/18 Other: 06/13/14 Plan completed by : SASHA JESSICA.Rohit, R.Ph. - 02/20/2016 12:10 CDT SASHA BRIZUELA Pharm.D., R.Ph. - 02/20/2016 12:10 CDT SASHA BRIZUELA Pharm.D., R.Ph. - 02/20/2016 12:10 CDT SASHA BRIZUELA Pharm.Valentina., R.Ph. - 02/20/2016 12:10 CDT Date : 06/14/2014 BANQUET BARTENDER 06/14/2014 BANQUET BARTENDER 06/16/2014 BANQUET BARTENDER 06/23/2014 BANQUET BARTENDER Location of INR sample : Clinic Lab Lab Type of Sample : Venous Venous INR Result : 1.3 on 06/13 2.4 faxed from lab 2.0 Warfarin Dose : (pt took 2.5mg 06/13) 5mg Sat and 5mg Sun (06/14 and 06/15) 5mg Mon and 2.5mg all other days 5mg Mon and 2.5mg all other days Total Weekly Warfarin Dose : 20 20 Comment : [facility] lab called with INR result from 06/13, reported they left a message with Dr. Garibay and hadn't heard back, spoke with mother, Fabiola, and gave doses, continue Lovenox and repeat INR 06/16, message left with INR clinic in [place] to contact Please contact [facility] lab on 06/16 for result and may call Fabiola at [phone] with instructions call to Fabiola/will stop Lovenox injections and take noted dose/pt has an appt here in 06/23 so will do lab appt here that day Called to Fabiola/ Dorita will be back at [facility] [place] by next draw. will have done on . no changes to meds/diet. Recommend Recheck : Two days One week Two weeks Plan completed by : SASHA Birch LM, Pharm.D., R.Ph. - 02/20/2016 12:10 CDT SASHA BRIZUELA Pharm.D., R.Ph. - 02/20/2016 12:10 CDT SASHA BRIZUELA Pharm.D., R.Ph. - 02/20/2016 12:10 CDT SASHA BRIZUELA Pharm.D., R.Ph. - 02/20/2016 12:10 CDT Date : 07/10/2014 BANQUET BARTENDER 07/17/2014 BANQUET BARTENDER 07/31/2014 BANQUET BARTENDER 09/11/2014 CDT Location of INR sample : [...] Plan completed by : darya WYLIE ly SASHA GAYTAN Pharm.D., R.Ph. - 02/20/2016 12:10 CDT SASHA BRIZUELA PharmBrett., R.Ph. - 02/20/2016 12:10 CDT SASHA BRIZUELA Pharm.Valentina., R.Ph. - 02/20/2016 12:10 CDT SASHA BRIZUELA Pharm.D., R.Ph. - 02/20/2016 12:10 CDT Date : 09/12/2014 CDT 09/25/2014 CDT [...] Mom/Fabiola, no changes, rev'd w/[place]/Pharmacy called to David/Fabiola, no changes Recommend Recheck : Two weeks One week One week Two weeks Plan completed by : SASHA Pantoja Pharm.D., R.Ph. - 02/20/2016 12:10 CDT SASHA BRIZUELA Pharm.Rohit, R.Ph. - 02/20/2016 12:10 CDT SASHA BRIZUELA.Valentina., R.Ph. - 02/20/2016 12:10 CDT SASHA BRIZUELA.Rohit, R.Ph. - 02/20/2016 12:10 CDT Date : 10/23/2014 CDT 11/13/2014 CDT [...] [facility]/Pharmacy and called Mom with orders Per Mom, Meredith, no changes, has been drinking some Kiwi Juice, no bleeding/consult with [facility]/Pharmacy Called to mom /Fabiola, no changes, rev'd w/[facility]/Pharmacy Recommend Recheck : Three weeks One week One week One week Plan completed by : SASHA Pedroza Pharm.Rohit, R.Ph. - 02/20/2016 12:10 CDT SASHA BRIZUELA Pharm.D., R.Ph. - 02/20/2016 12:10 CDT SASHA BRIZUELA Pharm.D., R.Ph. - 02/20/2016 12:10 CDT SASHA BRIZUELA.Rohit, R.Ph. - 02/20/2016 12:10 CDT Date : 12/04/2014 CDT 12/18/2014 CDT [...] Midol per mom/Fabiola, no Lovenox per Dr Garibay, rev'd dose w/[facility]/Pharmacy Called to mom/Fabiola, no changes Recommend Recheck : Two weeks Three weeks One week Two weeks Plan completed by : SASHA Blackman Pharm.Rohit, R.Ph. - 02/20/2016 12:10 CDT SASHA BRIZUELA Pharm.Rohit, R.Ph. - 02/20/2016 12:10 CDT SASHA BRIZUELA Pharm.Rohit, R.Ph. - 02/20/2016 12:10 CDT SASHA BRIZUELA Pharm.Rohit, R.Ph. - 02/20/2016 12:10 CDT Date : 02/05/2015 CDT 02/26/2015 CDT [...] weeks Three weeks Plan completed by : SASHA LATIF Pharm.D., R.Ph. - 02/20/2016 12:10 CDT SASHA BRIZUELA Pharm.D., R.Ph. - 02/20/2016 12:10 CDT SASHA BRIZUELA Pharm.D., R.Ph. - 02/20/2016 12:10 CDT SASHA BRIZUELADMichael, R.Ph. - 02/20/2016 12:10 CDT Date : 04/09/2015 CDT 05/07/2015 BANQUET BARTENDER 06/04/2015 BANQUET BARTENDER 07/02/2015 BANQUET BARTENDER Location of INR sample : Lab Lab [...] Other: 5 weeks Plan completed by : SASHA Suarez Pharm.D., R.Ph. - 02/20/2016 12:10 CDT SASHA BRIZUELA Pharm.D., R.Ph. - 02/20/2016 12:10 CDT SASHA BRIZUELA Pharm.D., R.Ph. - 02/20/2016 12:10 CDT SASHA BRIZUELA Pharm.D., R.Ph. - 02/20/2016 12:10 CDT Date : 08/06/2015 BANQUET BARTENDER 09/17/2015 CDT 10/29/2015 CDT 11/12/2015 CDT Location [...] weeks One week Plan completed by : SASHA Bertrand Pharm.D., R.Ph. - 02/20/2016 12:10 CDT SASHA BRIZUELA Pharm.D., R.Ph. - 02/20/2016 12:10 PATRICIAT SASHA BRIZUELA Pharm.D., R.Ph. - 02/20/2016 12:10 PATRICIAT SASHA BRIZUELA Pharm.D., R.Ph. - 02/20/2016 12:10 CDT Date : 11/19/2015 CDT 12/03/2015 CDT [...] month One month Plan completed by : SASHA Quintana.Rohit, R.Ph. - 02/20/2016 12:10 CDT SASHA BRIZUELA Pharm.D., R.Ph. - 02/20/2016 12:10 CDT SASHA BRIZUELA Pharm.D., R.Ph. - 02/20/2016 12:10 CDT SASHA BRIZUELA Pharm.D., R.Ph. - 02/20/2016 12:10 CDT Date : 02/19/2016 CDT 02/20/2016 CDT Location of INR sample : [facility] Type of Sample : Venous Venous INR Result : 4,72 4.76 Warfarin Dose : No warfarin today No warfarin today Total Weekly Warfarin Dose : Comment : No warfarin today and recheck INR tomorrow. No warfarin today and recheck INR tomorrow. Recommend Recheck : One day One day Plan completed by : Tyshawn Brizuela, Pharm.DJustin Chavez GERALD G Pharm.D., R.Ph. - 02/20/2016 12:10 CDT SASHA BRIZUELA Pharm.D., R.Ph. - 02/20/2016 12:10 CDT Source: [facility] [employer] Document Id: [id number] CDT!550 Miscellaneous - Sasha Brizuela Pharm.DMichael, R.Ph. - 02/20/2016 12:08 PM CDT Anticoagulation Patient Intake Anticoagulation Patient Intake Entered On: 02/20/2016 12:10 CDT Performed On: 02/20/2016 12:08 CDT by SASHA BRIZUELA Pharm.D., R.Ph. Plan INR goal range : 2.0 - 3.0 Duration of Therapy : Lifelong Tablet Size : 5 mg SASHA BRIZUELA Pharm.D., R.Ph. - 02/20/2016 12:08 CDT Anticoagulation Management Plan Grid Date : [...] Plan completed by : darya BURGESS JM SASHA Og Pharm.D., R.Ph. - 02/20/2016 12:08 CDT SASHA BRIZUELA Pharm.D., R.Ph. - 02/20/2016 12:08 CDT SASHA BRIZUELA Pharm.D., R.Ph. - 02/20/2016 12:08 CDT SASHA BRIZUELA Pharm.D., R.Ph. - 02/20/2016 12:08 CDT Date : 12/26/2013 CDT 01/30/2014 CDT [...] 03/10/2014 Other: 03/20/14 Plan completed by : SASHA Henson Pharm.DMichael, R.Ph. - 02/20/2016 12:08 CDT SASHA BRIZUELA.Rohit, R.Ph. - 02/20/2016 12:08 CDT SASHA BRIZUELA.Rohit, R.Ph. - 02/20/2016 12:08 CDT SASHA BRIZUELA.Rohit, R.Ph. - 02/20/2016 12:08 CDT Date : 03/20/2014 CDT 03/27/2014 CDT [...] Mom, she is going to check with Dorita to see if she is drinking Cranberry [...] Other: Plan completed by : darya lackey [facility]/pharmacy SASHA BRIZUELA Pharm.Rohit, R.Ph. - 02/20/2016 12:08 SASHA REILLY Pharm.D., R.Ph. - 02/20/2016 12:08 SASHA REILLY Pharm.D., R.Ph. - 02/20/2016 12:08 SASHA REILLY Pharm.D., R.Ph. - 02/20/2016 12:08 CDT Date : 04/17/2014 CDT 04/24/2014 CDT 05/01/2014 BANQUET BARTENDER 05/15/2014 BANQUET BARTENDER Location of INR sample : Lab Lab [...] will trynoted dose called to mom Fabiola [phone] called to Fabiola/no changes Called to mother/Fabiola, not awareof any changes Recommend Recheck : One week One week Two weeks Two weeks Plan completed by : SASHA BENTON Pharm.D., R.Ph. - 02/20/2016 12:08 SASHA REILLY Pharm.D., R.Ph. - 02/20/2016 12:08 SASHA REILLY Pharm.D., R.Ph. - 02/20/2016 12:08 SASHA REILLY Pharm.D., R.Ph. - 02/20/2016 12:08 CDT Date : 06/03/2014 BANQUET BARTENDER 06/05/2014 BANQUET BARTENDER 06/10/2014 BANQUET BARTENDER 06/11/2014 BANQUET BARTENDER Location of INR sample : Lab Type [...] Will have pre-op 06/09. Will message Dr. Garibay to check about when to stop coumadin and if bridging needed. Called to mother/Fabiola. Per message from Dr. Garibay, stop coumadin 5days prior to surgery (06/06) with no bridging. Called motherFabiola. Dorita will be staying in [place] 2wks post-surgery & have INR drawn there. [...] lovenox tomorrow AM as ordered. INR in [place] for next several weeks as pt will be recovering there. Recommend Recheck : Other: depending on Dr. Garibay's preop. Other: 06/18 Other: 06/13/14 Plan completed by : SASHA JESSICA.D., R.Ph. - 02/20/2016 12:08 CDT SASHA BRIZUELA Pharm.D., R.Ph. - 02/20/2016 12:08 CDT SASHA BRIZUELA.Valentina., R.Ph. - 02/20/2016 12:08 CDT SASHA BRIZUELA Pharm.D., R.Ph. - 02/20/2016 12:08 CDT Date : 06/14/2014 BANQUET BARTENDER 06/14/2014 BANQUET BARTENDER 06/16/2014 BANQUET BARTENDER 06/23/2014 BANQUET BARTENDER Location of INR sample : Clinic Lab Lab Type of Sample : Venous Venous INR Result : 1.3 on 06/13 2.4 faxed from lab 2.0 Warfarin Dose : (pt took 2.5mg 06/13) 5mg Sat and 5mg Sun (06/14 and 06/15) 5mg Mon and 2.5mg all other days 5mg Mon and 2.5mg all other days Total Weekly Warfarin Dose : 20 20 Comment : [place] lab called with INR result from 06/13, reported they left a message with Dr. Garibay and hadn't heard back, spoke with mother, Fabiola, and gave doses, continue Lovenox and repeat INR 06/16, message left with INR clinic in to contact CF Please contact [facility] lab on 06/16 for result and may call Fabiola at [phone] with instructions call to Fabiola/will stop Lovenox injections and take noted dose/pt has an appt here in [place] 06/23 so will do lab appt here that day Called to Fabiola/ Dorita will be back at [facility] [place] by next draw. will have done on . no changes to meds/diet. Recommend Recheck : Two days One week Two weeks Plan completed by : SASHA Birch LM.Valentina., R.Ph. - 02/20/2016 12:08 CDT SASHA BRIZUELA.Valentina., R.Ph. - 02/20/2016 12:08 CDT SASHA BRIZUELA Pharm.Valentina., R.Ph. - 02/20/2016 12:08 CDT SASHA BRIZUELA.Valentina., R.Ph. - 02/20/2016 12:08 CDT Date : 07/10/2014 BANQUET BARTENDER 07/17/2014 BANQUET BARTENDER 07/31/2014 BANQUET BARTENDER 09/11/2014 CDT Location of INR sample : [...] Two weeks Plan completed by : ly SASHA Garcia Pharm.D., R.Ph. - 02/20/2016 12:08 CDT SASHA BRIZUELA Pharm.D., R.Ph. - 02/20/2016 12:08 CDT SASHA BRIZUELA Pharm.D., R.Ph. - 02/20/2016 12:08 CDT SASHA BRIZUELA Pharm.D., R.Ph. - 02/20/2016 12:08 CDT Date : 09/12/2014 CDT 09/25/2014 CDT [...] doses Called to Mom/Fabiola, no changes, rev'd w/[facility]/Pharmacy called to Mom/Fabiola, no changes Recommend Recheck : Two weeks One week One week Two weeks Plan completed by : SASHA Pantoja Pharm.Rohit, R.Ph. - 02/20/2016 12:08 CDT SASHA BRIZUELA Pharm.D., R.Ph. - 02/20/2016 12:08 CDT SASHA BRIZUELA PharmJaime, R.Ph. - 02/20/2016 12:08 CDT SASHA BRIZUELA PharmJaime, R.Ph. 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 - 02/20/2016 12:08 CDT SASHA BRIZUELA.Rohit, R.Ph. - 02/20/2016 12:08 CDT SASHA BRIZUELA.Rohit, R.Ph. - 02/20/2016 12:08 CDT SASHA BRIZUELA.Rohit, R.Ph. - 02/20/2016 12:08 CDT Date : 12/04/2014 CDT 12/18/2014 CDT [...] Midol per mom/Fabiola, no Lovenox per Dr Garibay, rev'd dose w/[facility]/Pharmacy Called to mom/Fabiola, no changes Recommend Recheck : Two weeks Three weeks One week Two weeks Plan completed by : SASHA Blackman Pharm.D., R.Ph. - 02/20/2016 12:08 SASHA REILLY Pharm.D., R.Ph. - 02/20/2016 12:08 SASHA REILLY Pharm.D., R.Ph. - 02/20/2016 12:08 SASHA REILLY Pharm.D., R.Ph. - 02/20/2016 12:08 CDT Date : 02/05/2015 CDT 02/26/2015 CDT [...] weeks Three weeks Plan completed by : SASHA LATIF Pharm.D., R.Ph. - 02/20/2016 12:08 SASHA REILLY Pharm.D., R.Ph. - 02/20/2016 12:08 SASHA REILLY Pharm.D., R.Ph. - 02/20/2016 12:08 SASHA REILLY Pharm.D., R.Ph. - 02/20/2016 12:08 CDT Date : 04/09/2015 CDT 05/07/2015 BANQUET BARTENDER 06/04/2015 BANQUET BARTENDER 07/02/2015 BANQUET BARTENDER Location of INR sample : Lab Lab [...] Other: 5 weeks Plan completed by : SASHA Suarez Pharm.Rohit, R.Ph. - 02/20/2016 12:08 CDT SASHA BRIZUELA Pharm.D., R.Ph. - 02/20/2016 12:08 PATRICIAT SASHA BRIZUELA.Rohit, R.Ph. - 02/20/2016 12:08 CDT SASHA BRIZUELA.Rohit, R.Ph. - 02/20/2016 12:08 CDT Date : 08/06/2015 BANQUET BARTENDER 09/17/2015 CDT 10/29/2015 CDT 11/12/2015 CDT Location [...] weeks One week Plan completed by : SASHA Betrrand Pharm.Rohit, R.Ph. - 02/20/2016 12:08 PATRICIAT SASHA BRIZUELA Pharm.Rohit, R.Ph. - 02/20/2016 12:08 PATRICIAT SASHA BRIZUELA Pharm.D., R.Ph. - 02/20/2016 12:08 CDT SASHA BRIZUELA Pharm.D., R.Ph. - 02/20/2016 12:08 CDT Date : 11/19/2015 CDT 12/03/2015 CDT [...] month One month Plan completed by : SASHA Quintana Pharm.D., R.Ph. - 02/20/2016 12:08 CDT SASHA BRIZUELA Pharm.D., R.Ph. - 02/20/2016 12:08 CDT SASHA BRIZUELA Pharm.D., R.Ph. - 02/20/2016 12:08 CDT SASHA BRIZUELA Pharm.D., R.Ph. - 02/20/2016 12:08 CDT Date : 02/19/2016 CDT 02/20/2016 CDT Location of INR sample : [facility] Type of Sample : Venous Venous INR Result : 4,72 4.76 Warfarin Dose : No warfarin today No warfarin today Total Weekly Warfarin Dose : Comment : No warfarin today and recheck INR tomorrow. No warfarin today and recheck INR tomorrow. Recommend Recheck : One day One day Plan completed by : Tyshawn Brizuela, PharmMichaelDJustin Chavez GERALD G Pharm.D., R.Ph. - 02/20/2016 12:08 CDT SASHA BRIZUELA Pharm.D., R.Ph. - 02/20/2016 12:08 CDT Source: [employer] Document Id: [id number] CDT!550 Miscellaneous - Sasha Brizuela Pharm.D., R.Ph. - 02/20/2016 12:07 PM CDT Anticoagulation Patient Intake Anticoagulation Patient Intake Entered On: 02/20/2016 12:08 CDT Performed On: 02/20/2016 12:07 CDT by SASHA BRIZUELA Pharm.D., R.Ph. Plan INR goal range : 2.0 - 3.0 Duration of Therapy : Lifelong Tablet Size : 5 mg SASHA BRIZUELA Pharm.D., R.Ph. - 02/20/2016 12:07 CDT Anticoagulation Management Plan Grid Date : [...] weeks Two weeks Plan completed by : daray BURGESS JM SASHA Og Pharm.D., R.Ph. - 02/20/2016 12:07 CDT SASHA BRIZUELA Pharm.D., R.Ph. - 02/20/2016 12:07 CDT SASHA BRIZUELA Pharm.D., R.Ph. - 02/20/2016 12:07 CDT SASHA BRIZUELA Pharm.D., R.Ph. - 02/20/2016 12:07 CDT Date : 12/26/2013 CDT 01/30/2014 CDT [...] 03/10/2014 Other: 03/20/14 Plan completed by : SASHA Henson Pharm.DMichael, R.Ph. - 02/20/2016 12:07 CDT SASHA BRIZUELA Pharm.D., R.Ph. - 02/20/2016 12:07 CDT SASHA BRIZUELA.D., R.Ph. - 02/20/2016 12:07 CDT SASHA BRIZUELA Pharm.D., R.Ph. - 02/20/2016 12:07 CDT Date : 03/20/2014 CDT 03/27/2014 CDT [...] Mom, she is going to check with Dorita to see if she is drinking Cranberry [...] completed by : darya lackey LM /pharmacy SASHA BRIZUELA Pharm.D., R.Ph. - 02/20/2016 12:07 CDT SASHA BRIZUELA Pharm.D., R.Ph. - 02/20/2016 12:07 CDT SASHA BRIZUELA.Rohit, R.Ph. - 02/20/2016 12:07 CDT SASHA BRIZUELA Pharm.D., R.Ph. - 02/20/2016 12:07 CDT Date : 04/17/2014 CDT 04/24/2014 CDT 05/01/2014 BANQUET BARTENDER 05/15/2014 BANQUET BARTENDER Location of INR sample : Lab Lab [...] will trynoted dose called to mom Fabiola [phone] called to Fabiola/no changes Called to mother/Fabiola, not awareof any changes Recommend Recheck : One week One week Two weeks Two weeks Plan completed by : SASHA BENTON Pharm.D., R.Ph. - 02/20/2016 12:07 SASHA REILLY Pharm.Rohit, R.Ph. - 02/20/2016 12:07 SASHA REILLY Pharm.D., R.Ph. - 02/20/2016 12:07 SASHA REILLY Pharm.Rohit, R.Ph. - 02/20/2016 12:07 CDT Date : 06/03/2014 BANQUET BARTENDER 06/05/2014 BANQUET BARTENDER 06/10/2014 BANQUET BARTENDER 06/11/2014 BANQUET BARTENDER Location of INR sample : Lab Type [...] Will have pre-op 06/09. Will message Dr. Garibay to check about when to stop coumadin and if bridging needed. Called to mother/Fabiola. Per message from Dr. Garibay, stop coumadin 5days prior to surgery (06/06) with no bridging. Called motherFabiola. Dorita will be staying in [place] 2wks post-surgery & have INR drawn there. [...] lovenox tomorrow AM as ordered. INR in [place] for next several weeks as pt will be recovering there. Recommend Recheck : Other: depending on Dr. Garibay's preop. Other: 06/18 Other: 06/13/14 Plan completed by : SASHA JESSICA Pharm.D., R.Ph. - 02/20/2016 12:07 CDT SASHA BRIZUELA Pharm.D., R.Ph. - 02/20/2016 12:07 CDT SASHA BRIZUELA Pharm.D., R.Ph. - 02/20/2016 12:07 CDT SASHA BRIZUELA Pharm.D., R.Ph. - 02/20/2016 12:07 CDT Date : 06/14/2014 BANQUET BARTENDER 06/14/2014 BANQUET BARTENDER 06/16/2014 BANQUET BARTENDER 06/23/2014 BANQUET BARTENDER Location of INR sample : Clinic Lab Lab Type of Sample : Venous Venous INR Result : 1.3 on 06/13 2.4 faxed from lab 2.0 Warfarin Dose : (pt took 2.5mg 06/13) 5mg Sat and 5mg Sun (06/14 and 06/15) 5mg Mon and 2.5mg all other days 5mg Mon and 2.5mg all other days Total Weekly Warfarin Dose : 20 20 Comment : [place] lab called with INR result from 06/13, reported they left a message with Dr. Garibay and hadn't heard back, spoke with mother, Fabiola, and gave doses, continue Lovenox and repeat INR 06/16, message left with INR clinic in to contact CF Please contact [place] lab on 06/16 for result and may call Fabiola at [phone] with instructions call to Fabiola/will stop Lovenox injections and take noted dose/pt has an appt here in [place] 06/23 so will do lab appt here that day Called to Fabiola/ Dorita will be back at [facility] [place] by next draw. will have done on . no changes to meds/diet. Recommend Recheck : Two days One week Two weeks Plan completed by : SASHA Birch LM.D., R.Ph. - 02/20/2016 12:07 CDT SASHA BRIZUELA Pharm.D., R.Ph. - 02/20/2016 12:07 CDT SASHA BRIZUELA Pharm.D., R.Ph. - 02/20/2016 12:07 CDT SASHA BRIZUELA Pharm.D., R.Ph. - 02/20/2016 12:07 CDT Date : 07/10/2014 BANQUET BARTENDER 07/17/2014 BANQUET BARTENDER 07/31/2014 BANQUET BARTENDER 09/11/2014 CDT Location of INR sample : [...] weeks Two weeks Plan completed by : SASHA Yuen Pharm.Rohit, R.Ph. - 02/20/2016 12:07 SASHA REILLY Pharm.Valentina., R.Ph. - 02/20/2016 12:07 SASHA REILLY.Rohit, R.Ph. - 02/20/2016 12:07 SASHA REILLY Pharm.Rohit, R.Ph. - 02/20/2016 12:07 CDT Date : 09/12/2014 CDT 09/25/2014 CDT [...] week Two weeks Plan completed by : SASHA Pantoja Pharm.D., R.Ph. - 02/20/2016 12:07 SASHA REILLY Pharm.D., R.Ph. - 02/20/2016 12:07 SASHA REILLY Pharm.Rohit, R.Ph. - 02/20/2016 12:07 SASHA REILLY Pharm.Valentina., R.Ph. - 02/20/2016 12:07 CDT Date : 10/23/2014 CDT 11/13/2014 CDT [...] is she is 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 Freta.lá/no bleeding/consult with Quintin/Pharmacy and called Mom with orders Per Meredith Hernandez, no changes, has been drinking some Kiwi Juice, no bleeding/consult with Quintin/Pharmacy Called to david /Fabiola, no changes, rev'd w/BCarlson/Pharmacy Recommend Recheck : Three weeks One week One week One week Plan completed by : SASHA Pedroza Pharm.Rohit, R.Ph. - 02/20/2016 12:07 CDT SASHA BRIZUELA.Rohit, R.Ph. - 02/20/2016 12:07 CDT SASHA BRIZUELA Pharm.Rohit, R.Ph. - 02/20/2016 12:07 CDT SASHA BRIZUELA.Rohit, R.Ph. - 02/20/2016 12:07 CDT Date : 12/04/2014 CDT 12/18/2014 CDT [...] Midol per mom/Fabiola, no Lovenox per Dr Garibay, rev'd dose w/LZorn/Pharmacy Called to mom/Fabiola, no changes Recommend Recheck : Two weeks Three weeks One week Two weeks Plan completed by : SASHA Blackman Pharm.D., R.Ph. - 02/20/2016 12:07 CDT SASHA BRIZUELA Pharm.D., R.Ph. - 02/20/2016 12:07 CDT SASHA BRIZUELA Pharm.D., R.Ph. - 02/20/2016 12:07 CDT SASHA BRIZUELA Pharm.D., R.Ph. - 02/20/2016 12:07 CDT Date : 02/05/2015 CDT 02/26/2015 CDT [...] weeks Three weeks Plan completed by : SASHA LATIF Pharm.Rohit, R.Ph. - 02/20/2016 12:07 CDSASHA MCBRIDE Pharm.Rohit, R.Ph. - 02/20/2016 12:07 SASHA REILLY Pharm.Rohit, R.Ph. - 02/20/2016 12:07 PATRICIAT SASHA BRIZUELA Pharm.D., R.Ph. - 02/20/2016 12:07 CDT Date : 04/09/2015 CDT 05/07/2015 BANQUET BARTENDER 06/04/2015 BANQUET BARTENDER 07/02/2015 BANQUET BARTENDER Location of INR sample : Lab Lab [...] Other: 5 weeks Plan completed by : SASHA Suarez Pharm.D., R.Ph. - 02/20/2016 12:07 CDT SASHA BRIZUELA Pharm.D., R.Ph. - 02/20/2016 12:07 CDT SASHA BRIZUELA Pharm.D., R.Ph. - 02/20/2016 12:07 CDT SASHA BRIZUELA Pharm.D., R.Ph. - 02/20/2016 12:07 CDT Date : 08/06/2015 BANQUET BARTENDER 09/17/2015 CDT 10/29/2015 CDT 11/12/2015 CDT Location [...] weeks One week Plan completed by : SASHA Bertrand Pharm.D., R.Ph. - 02/20/2016 12:07 CDT SASHA BRIZUELA Pharm.D., R.Ph. - 02/20/2016 12:07 CDT SASHA BRIZUELA Pharm.D., R.Ph. - 02/20/2016 12:07 CDT SASHA BRIZUELA Pharm.D., R.Ph. - 02/20/2016 12:07 CDT Date : 11/19/2015 CDT 12/03/2015 CDT [...] month One month Plan completed by : SASHA Quintana Pharm.D., R.Ph. - 02/20/2016 12:07 CDT SASHA BRIZUELA Pharm.D., R.Ph. - 02/20/2016 12:07 CDT SASHA BRIZUELA Pharm.D., R.Ph. - 02/20/2016 12:07 CDT SASHA BRIZUELA Pharm.D., R.Ph. - 02/20/2016 12:07 CDT Source: [facility] POWERCHART Document Id: [id number] CDT!532 [place] - Sabrina Medina R.N. - 02/20/2016 10:07 AM CDT Adult Ongoing Assessment Adult Ongoing Assessment Entered On: 02/20/2016 10:11 CDT Performed On: 02/20/2016 10:07 CDT by SABRINA MEDINA RN Respiratory Respiratory Patient Stated Symptoms : None Respirations : Unlabored Distress : None Respiratory Pattern : Regular All Lobes Breath Sounds : Clear Cough and Deep Breathe : Done Cough : None Sputum Amount : None Suction : None Airway : Patent SABRINA MEDINA RN - 02/20/2016 10:07 CDT Cardiovascular CV Patient Stated Symptoms : None Heart Rhythm : Regular Heart Sounds ICU : S1S2 Antiembolism Device Yes/No : No Nail Bed Color : [place] Capillary Refill : Less than 2 seconds Edema Assessment : Yes SABRINA MEDINA RN - 02/20/2016 10:07 CDT Radial Pulse, Left : 2+ Normal Radial Pulse, Right : 2+ Normal Dorsalis Pedis Pulse, Left : 2+ Normal Dorsalis Pedis Pulse, Right : 2+ Normal SABRINA MEDINA RN - 02/20/2016 10:07 CDT Skin Color : Normal for ethnicity Skin Description : Normal Skin Temperature : Warm Activity Tolerance : Without distress SABRINA MEDINA RN 02/20/2016 10:07 CDT Edema Details Edema Detailed Grid Pretibial Edema Ankle Edema Pedal Edema Right : 3+ moderate/6mm 3+ moderate/6mm 3+ moderate/6mm SABRINA MEDINA RN - 02/20/2016 10:07 CDT SABRINA MEDINA RN - 02/20/2016 10:07 CDT SABRINA MEDINA RN - 02/20/2016 10:07 CDT Neurological Neuro Patient Stated Symptoms : None Orientation : Oriented x 3 Level of Consciousness : Alert Gait : Steady Swallowing Difficulty/Aspiration Risk : None Last Well Time Known : Not applicable SABRINA MEDINA RN - 02/20/2016 10:07 CDT [place] Coma Eye Opening Response Kathleen : Spontaneously Best Verbal Response Kathleen : Oriented Best Motor Response Kathleen : Obeys simple commands Kathleen Coma Score : 15 SABRINA MEDINA RN - 02/20/2016 10:07 CDT Psycho/Emotional Affect/Behavior : Calm, Cooperative, Appropriate Pain Symptoms : Yes SABRINA MEDINA RN - 02/20/2016 10:07 CDT Coping Grid Family supportive and involved in care : Yes Values/Beliefs incorporated appropriately : Yes SABRINA MEDINA ANGELINE - 02/20/2016 10:07 CDT Safety Grid Vision, Hearing, Mobility Adequate to Meet Safety Needs : Yes SABRINA MEDINA ANGELINE 02/20/2016 10:07 CDT Pain Scale Pain Scale Verbal 0-10 : Open SABRINA MEDINA ANGELINE 02/20/2016 10:07 CDT Pain Pain Assessment Grid Pain 1 Location : Lower leg Laterality : Right Intensity : 5 Alleviating Factors : Medication, Rest Interventions : Medications, Repositioning, Rest SABRINA MEDINA ANGELINE 02/20/2016 10:07 CDT Gastrointestinal GI Patient Stated Symptoms : Diarrhea Abdomen Description : Rounded, Symmetric Abdomen Palpation : Non-Tender, Soft Bowel Movement Last Date : 02/20/2016 CDT Bowel Sounds All Quadrants : Present Passing Flatus : Yes SABRINA MEDINA ANGELINE - 02/20/2016 10:07 CDT Nutrition Appetite : Excellent Eating Difficulties : None Feeding Ability : Complete independence SABRINA MEDINA ANGELINE 02/20/2016 10:07 CDT Genitourinary Patient Stated Symptoms : None Urinary Elimination : Voiding, no difficulties Urine Color : Yellow Urine Description : Clear Urine Odor : Odorless SABRINA MEDINA ANGELINE - 02/20/2016 10:07 CDT Integumentary Integumentary Patient Stated Symptoms : Fragile skin Skin Turgor : Elastic Skin Integrity : Intact Mucous Membrane Color : [place] Mucous Membrane Description : Moist SABRINA MEDINA ANGELINE 02/20/2016 10:07 CDT Skin Abnormality/Location Grid Location : Lower leg Other: all over body, arms, butt, legs Laterality : Right Abnormality : Excoriation, Flaking, Other: tight Other: psoriasis SABRINA MEDINA Hudson MARCUS 02/20/2016 10:07 CDT ADAM SABRINA Treviño ANGELINE 02/20/2016 10:07 CDT Senior Product Engineer Integumentary - Grid Senior Product Engineer : Other: Tubeagrip Assessment/Action : Removed and reapplied Skin Appearance : Normal SABRINA MEDINA ANGELINE 02/20/2016 10:07 CDT Skin Color : Normal for ethnicity Skin Description : Normal Skin Temperature : Warm SABRINA MEDINA ANGELINE 02/20/2016 10:07 CDT Incision/Wound Incision/Wound Care Grid Activity : Assessed Wound Type : Other: cellulitis Location : Lower leg Laterality : Right Description : Dry, Edematous Color : Red, [place] Drainage : None Surrounding Tissue : Erythema, Intact Wound Dressing : Other: Tube[place] Neurovascular Status : Neurovascular intact distal to injury, Pulses distal to injury palpable, Skindistal to injury warm and pink SABRINA MEDINA RN - 02/20/2016 10:07 CDT Mando Sensory Perception Mando : No impairment Moisture Mando : Rarely moist Activity Mando : Walks occasionally Mobility Mando : Slightly limited Nutrition Mando : Adequate Friction and Shear Mando : Potential problem Mando Score : 19 SABRINA MEDINA RN - 02/20/2016 10:07 CDT Musculoskeletal Musculoskeletal Patient Stated Symptoms : None Activity Tolerance : Without distress SABRINA MEDINA RN - 02/20/2016 10:07 CDT Peripheral IV Peripheral IV Assess/Intervention Grid Peripheral IV #1 IV Activity : Assessment Date of Insertion : 02/18/2016 CDT IV Site : Antecubital Laterality : Left Catheter Size : 20 Site Condition : No complications Drainage Description : None Dressing/ Activity : Dry, Intact, Transparent Flow/ Patency : No complications SABRINA MEDINA RN - 02/20/2016 10:07 CDT Hendrich II Fall Risk Confusion/Disorientation Hendrich : No Depression Fall Risk Hendrich : No Altered Elimination Fall Risk Hendrich : No Dizziness/Vertigo Fall Risk Hendrich : No Gender, Male Fall Risk Hendrich : No Prescribed Antiepileptics Hendrich : No Prescribed Benzodiazepines Hendrich : No Rising From Chair Fall Risk Hendrich : Pushes up, successful in one attempt Fall Risk Score Hendrich II : 1 SABRINA MEDINA RN - 02/20/2016 10:07 CDT Safe Patient Handling Safe Pt Handling Independent : Yes - No equipment needed Safe Pt Handling Equipment Rec : Unmotorized Equipment SABRINA MEDINA RN - 02/20/2016 10:07 CDT Education General Patient Education Powergrid Topics : Exercise, Medication generic/brand names, purpose, action, Nutrition/Diet, Pain Management,Plan of care, Safety, fall, Turn/Cough/Deep breathing, Use of pain scale(s), Wound care Individuals Taught : Patient Barriers to Learning : Acuity of Illness Teaching Method : Explanation Teaching Evaluation : Verbalizes understanding SABRINA MEDINA RN - 02/20/2016 10:07 CDT Source: [facility] POWERCHART Document Id: [id number] CDT!163 [place] - Sabrina Medina R.N. - 02/20/2016 9:14 AM CDT Adult Activities of Daily Living Adult Activities of Daily Living Entered On: 02/20/2016 9:15 CDT Performed On: 02/20/2016 9:14 CDT by SABRINA MEDINA RN ADLs I Patient Position : Sitting in bed Activity Status ADL : Up with assistance Activity Assistance : Moderate 1 person assistance Assistive Device : Gait belt, Walker Ambulation Distance : 34 m(Converted to: 111 ft 7 inch(es), 3,400 cm) Ambulation Patient Effort : Good Range of Motion LUE : Active Range of Motion RUE : Active Range of Motion LLE : Active Range of Motion RLE : Active SABRINA MEDINA RN - 02/20/2016 9:14 CDT ADLs II Elimination Assistance Offered Q2H : Offered/Performed Bowel Movement Last Date : 02/19/2016 CDT Standard Safety : Bed alarm ON, Bed in low position, Call device within reach, Gait belt, ID band check, Non-Slip footwear, Rounds every 1 hour, Upper/Half- length side-rails up, Wheels locked SABRINA MEDINA RN - 02/20/2016 9:14 CDT Source: [facility] [employer] Document Id: [id number] CDT!16 [place] - Eliane Benjamin, C.N.A. - 02/20/2016 9:00 AM CDT Adult Activities of Daily Living Adult Activities of Daily Living Entered On: 02/20/2016 9:26 CDT Performed On: 02/20/2016 9:00 CDT by ELIANE BENJAMIN CNA ADLs I Patient Position : Other: ambulation Activity Status ADL : Ambulating in preciado Activity Assistance : Moderate 1 person assistance Assistive Device : Gait belt, Walker Ambulation Distance : 30 m(Converted to: 98 ft 5 inch(es), 3,000 cm) Ambulation Patient Effort : Good ELIANE BENJAMIN COMPRESSOR MECHANIC BUS - 02/20/2016 9:25 CDT Source: [employer] Document Id: [id number] CDT!8 Miscelllucian - Karina Alicea RMichaelNMichael - 02/20/2016 5:51 AM CDT Adult Activities of Daily Living Adult Activities of Daily Living Entered On: 02/20/2016 5:52 CDT Performed On: 02/20/2016 5:51 CDT by KARINA ALICEA RN ADLs I Patient Position : Head of bed flat, Supine Activity Status ADL : Up ad silvino, Up with assistance Activity Assistance : Supervision/Minimum 1 person assistance KARINA ALICEA RN - 02/20/2016 5:51 CDT ADLs II Elimination Assistance Offered Q2H : Offered/Performed Bowel Movement Last Date : 02/19/2016 CDT Standard Safety : Bed alarm ON, Bed in low position, Call device within reach, Gait belt, ID band check, Non-Slip footwear, Upper/Half-length side-rails up, Wheels locked KARINA ALICEA RN - 02/20/2016 5:51 CDT I&O Stool Count : 1 KARINA ALICEA RN - 02/20/2016 5:51 CDT Source: [employer] Document Id: [id number] CDT!11 [place] - Ana Jonas - 02/19/2016 9:30 PM CDT Adult Ongoing Assessment Adult Ongoing Assessment Entered On: 02/19/2016 23:00 CDT Performed On: 02/19/2016 21:30 CDT by ANA JONAS RN Respiratory Respiratory Patient Stated Symptoms : None Respirations : Unlabored Distress : None Respiratory Pattern : Regular All Lobes Breath Sounds : Clear Cough : None Sputum Amount : None Suction : None Airway : Patent TOBIAS ANA Boyce RN - 02/19/2016 22:46 CDT Cardiovascular CV Patient Stated Symptoms : None Heart Rhythm : Regular Heart Sounds ICU : S1S2 Antiembolism Device Yes/No : No Nail Bed Color : [place] Capillary Refill : Less than 2 seconds Edema Assessment : Yes ANA JONAS RN - 02/19/2016 22:46 CDT Radial Pulse, Left : 2+ Normal Radial Pulse, Right : 2+ Normal Dorsalis Pedis Pulse, Left : 2+ Normal Dorsalis Pedis Pulse, Right : 2+ Normal, 1+ Thready ANA JONAS RN - 02/19/2016 22:46 CDT Skin Color : Normal for ethnicity ANA JONAS RN - 02/19/2016 22:46 CDT Edema Details Edema Detailed Grid Ankle Edema Right : 2+ mild/4mm ANA JONAS RN - 02/19/2016 22:46 CDT Neurological Neuro Patient Stated Symptoms : Other: Downs syndrome Orientation : Oriented x 3, Appropriate for age Level of Consciousness : Alert Gait : Unsteady Swallowing Difficulty/Aspiration Risk : None ANA JONAS RN - 02/19/2016 22:46 CDT [place] Coma Eye Opening Response [place] : Spontaneously Best Verbal Response [place] : Oriented Best Motor Response Kathleen : Obeys simple commands [place] Coma Score : 15 ANA JONAS RN - 02/19/2016 22:46 CDT Oral Assessment Lips : Smooth, pink, moist, intact Gingiva : [place], smooth, moist, intact Tongue : Smooth, pink, moist, intact Teeth : Clean, no debris Saliva : Thin, watery, plentiful ANA JONAS RN - 02/19/2016 22:46 CDT Psycho/Emotional Affect/Behavior : Calm, Cooperative, Appropriate Pain Symptoms : Yes Feels Rested : Yes ANA JONAS RN - 02/19/2016 22:46 CDT Coping Grid Identifies effective strategies : No Uses effective strategies : No Reports increase in psychological comfort : Yes Indicates sense of control : Yes Stressors perceived within control : Yes Stable mood with appropriate affect : Yes Behaviors indicate use of coping mechanism : No Values/Beliefs incorporated appropriately : Yes ANA JONAS RN - 02/19/2016 22:46 CDT Safety Grid Vision, Hearing, Mobility Adequate to Meet Safety Needs : Yes NIRU JONASIHSAN Boyce RN - 02/19/2016 22:46 CDT Pain Scale Pain Scale Verbal 0-10 : Open ANA JONAS Carli MARCUS - 02/19/2016 22:46 CDT Pain Pain Assessment Grid Pain 1 Location : Lower leg Laterality : Right Time Pattern : Constant Pain Radiation : No Aggravating Factors : None Alleviating Factors : Medication Associated Symptoms : None Interventions : Medications ANA JONAS RN - 02/19/2016 22:46 CDT Gastrointestinal GI Patient Stated Symptoms : None Bowel Movement Last Date : 02/19/2016 CDT TOBIAS ANAIHSAN Boyce RN - 02/19/2016 22:46 CDT Nutrition Appetite : Good Eating Difficulties : None ANA JONAS RN - 02/19/2016 22:46 CDT Genitourinary Patient Stated Symptoms : None TOBIAS ANA Boyce RN - 02/19/2016 22:46 CDT Integumentary Integumentary Patient Stated Symptoms : None Skin Turgor : Elastic Skin Integrity : Intact Mucous Membrane Color : [place] Mucous Membrane Description : Moist TOBIASANA RN - 02/19/2016 22:46 CDT Skin Abnormality/Location Grid Location : Lower leg Other: all over body, arms, butt, legs Laterality : Right Abnormality : Excoriation, Flaking, Other: tight Other: psoriasis ANA JONAS RN - 02/19/2016 22:46 CDT TOBIAS ANAIHSAN Boyce RN - 02/19/2016 22:46 CDT Skin Color : Normal for ethnicity Skin Temperature : Warm TOBIASNIRUANAIHSAN Boyce RN - 02/19/2016 22:46 CDT Incision/Wound Incision/Wound Care Grid Type : Other: cellulitis Location : Lower leg Laterality : Right KING ANA Boyce RN - 02/20/2016 2:00 CDT Mando Sensory Perception Mando : Slightly limited Moisture Mando : Occasionally moist Activity Mando : Walks occasionally Mobility Mando : Slightly limited Nutrition Mando : Adequate Friction and Shear Mando : No apparent problem Mando Score : 18 ANA JONAS RN - 02/20/2016 2:00 CDT Musculoskeletal Musculoskeletal Patient Stated Symptoms : Joint swelling Activity Tolerance : Minimal distress TOBIAS ANA Boyce RN - 02/20/2016 2:02 CDT Musculoskeletal Joint Asmt Ultragrid Joint Assessment #1 Location : Ankle, right Assessment : Edema present, Heat present, Tender to palpation Range of Motion : Limited motion, active ANA JONAS RN - 02/20/2016 2:02 CDT Peripheral IV Peripheral IV Assess/Intervention Grid Peripheral IV #1 IV Activity : Assessment Date of Insertion : 02/18/2016 CDT IV Site : Antecubital Laterality : Left Catheter Size : 20 Site Condition : No complications Infiltration Score : 0 Phlebitis Score : 0 Dressing/ Activity : Dry ANA JONAS RN - 02/20/2016 2:02 CDT Hendrich II Fall Risk Confusion/Disorientation Hendrich : No Depression Fall Risk Hendrich : No Altered Elimination Fall Risk Hendrich : Yes Dizziness/Vertigo Fall Risk Hendrich : No Gender, Male Fall Risk Hendrich : No Prescribed Antiepileptics Hendrich : No Prescribed Benzodiazepines Hendrich : No Rising From Chair Fall Risk Hendrich : Pushes up, successful in one attempt Fall Risk Score Hendrich II : 2 ANA JONAS RN - 02/20/2016 2:02 CDT Safe Patient Handling Safe Pt Handling Independent : No Safe Pt Handling Supervision/Minimal Assistance : Yes - Unmotorized Equipment Safe Pt Handling Equipment Rec : Unmotorized Equipment Repositioning Device Recommended : No ANA JONAS RN - 02/20/2016 2:02 CDT Education General Patient Education Powergrid Topics : Activity limitations/expectations, Pain Management Individuals Taught : Patient Barriers to Learning : Difficulty concentrating, Emotional state, Literacy Teaching Method : Explanation Teaching Evaluation : Needs further teaching, Needs reinforcement ANA JONAS RN - 02/20/2016 2:08 CDT [facility] Document Id: [id number] CDT!9 Miscellaneous - Eliane Benjamin, C.N.AMichael - 02/19/2016 3:05 PM CDT Adult Activities of Daily Living Adult Activities of Daily Living Entered On: 02/19/2016 16:26 CDT Performed On: 02/19/2016 15:05 CDT by ELIANE BENJAMIN COMPRESSOR MECHANIC BUS ADLs II Hygiene Assistance Grid Back Rub : Maximum assistance Foot Care : Maximum assistance Hair Care : Moderate assistance Leeanna Care : Maximum assistance Shower : Maximum assistance Upper Body Dressing(Clothing) : Moderate assistance Lower Body Dressing(Clothing) : Moderate assistance SOURAV, ELIANE M [facility] - 02/19/2016 16:26 CDT Bowel Movement Last Date : 02/19/2016 CDT Standard Safety : Bed alarm ON, Bed in low position, Call device within reach, Gait belt, Non-Slip footwear ELIANE BENJAMIN Juan [facility] - 02/19/2016 16:26 CDT Source: [employer] Document Id: [id number] CDT!12 Sabrina Lindsay R.N. - 02/19/2016 12:04 PM CDT Adult Activities of Daily Living Adult Activities of Daily Living Entered On: 02/19/2016 12:04 CDT Performed On: 02/19/2016 12:04 CDT by SABRINA MEDINA RN ADLs I Assistive Device : Gait belt, Walker, Other: Wheelchair to follow Ambulation Distance : 34 m(Converted to: 111 ft 7 inch(es), 3,400 cm) Ambulation Patient Effort : Good SABRINA MEDINA RN - 02/19/2016 12:04 CDT Source: [employer] Document Id: [id number] CDT!5 Sabrina Lindsay R.N. - 02/19/2016 8:42 AM CDT Adult Ongoing Assessment Adult Ongoing Assessment Entered On: 02/19/2016 8:48 CDT Performed On: 02/19/2016 8:42 CDT by SABRINA MEDINA RN Respiratory Respiratory Patient Stated Symptoms : None Respirations : Unlabored Distress : None Respiratory Pattern : Regular All Lobes Breath Sounds : Clear Cough : None Sputum Amount : None Suction : None Airway : Patent SABRINA MEDINA RN - 02/19/2016 8:42 CDT Cardiovascular CV Patient Stated Symptoms : None Heart Rhythm : Regular Heart Sounds ICU : S1S2 Antiembolism Device Yes/No : No Nail Bed Color : [place] Capillary Refill : Less than 2 seconds Edema Assessment : Yes SABRINA MEDINA RN 02/19/2016 8:42 CDT Radial Pulse, Left : 2+ Normal Radial Pulse, Right : 2+ Normal Dorsalis Pedis Pulse, Left : 2+ Normal Dorsalis Pedis Pulse, Right : 2+ Normal ADAM SABRINA Treviño RN 02/19/2016 8:42 CDT Skin Color : Normal for ethnicity Skin Description : Normal Skin Temperature : Warm Activity Tolerance : Without distress SABRINA MEDINA RN 02/19/2016 8:42 CDT Edema Details Edema Detailed Grid Ankle Edema Pedal Edema Right : 3+ moderate/6mm 3+ moderate/6mm SABRINA MEDINA RN 02/19/2016 8:42 CDT SABRINA MEDINA RN 02/19/2016 8:42 CDT Neurological Neuro Patient Stated Symptoms : None Orientation : Oriented x 3 Level of Consciousness : Alert Gait : Steady Swallowing Difficulty/Aspiration Risk : None Last Well Time Known : Not applicable SABRINA MEDINA RN 02/19/2016 8:42 CDT [place] Coma Eye Opening Response [place] : Spontaneously Best Verbal Response Kathleen : Oriented Best Motor Response [place] : Obeys simple commands [place] Coma Score : 15 SABRINA MEDINA RN 02/19/2016 8:42 CDT Psycho/Emotional Affect/Behavior : Calm, Cooperative, Appropriate Pain Symptoms : No Feels Rested : No SABRINA MEDINA RN 02/19/2016 8:42 CDT Coping Grid Identifies effective strategies : Yes Uses effective strategies : Yes Reports increase in psychological comfort : Yes Indicates sense of control : Yes Stressors perceived within control : Yes Stable mood with appropriate affect : Yes Behaviors indicate use of coping mechanism : Yes Family supportive and involved in care : Yes Values/Beliefs incorporated appropriately : Yes SABRINA MEDINA ANGELINE 02/19/2016 8:42 CDT Safety Grid Vision, Hearing, Mobility Adequate to Meet Safety Needs : Yes SABRINA MEDINA RN 02/19/2016 8:42 CDT Gastrointestinal GI Patient Stated Symptoms : None Abdomen Description : Rounded Abdomen Palpation : Non-Tender, Soft Bowel Movement Last Date : 02/19/2016 CDT Bowel Sounds All Quadrants : Present Stool Color : Brown Stool Description : Loose Stool Amount : Moderate Passing Flatus : Yes SABRINA MEDINA ANGELINE 02/19/2016 8:42 CDT Genitourinary Patient Stated Symptoms : None Urinary Elimination : Voiding, no difficulties SABRINA MEDINA ANGELINE 02/19/2016 8:42 CDT Integumentary Integumentary Patient Stated Symptoms : None Skin Turgor : Elastic Skin Integrity : Not intact Mucous Membrane Color : [place] Mucous Membrane Description : Moist SABRINA MEDINA ANGELINE 02/19/2016 8:42 CDT Skin Abnormality/Location Grid Location : Lower leg Other: all over body, arms, butt, legs Laterality : Right Abnormality : Excoriation, Flaking, Other: tight Other: psoriasis Comments (Comment: Applied 2 pieces of tubeagrip [SABRINA MEDINA ANGELINE 02/19/2016 8:42 CDT] ) SABRINA MEDINA ANGELINE 02/19/2016 8:42 CDT SABRINA MEDINA ANGELINE 02/19/2016 8:42 CDT Skin Color : Normal for ethnicity Skin Description : Normal Skin Temperature : Warm SABRINA MEDINA ANGELINE 02/19/2016 8:42 CDT Incision/Wound Incision/Wound Care Grid Activity : Assessed Wound Type : Other: cellulitis Location : Lower leg Laterality : Right Description : Dry Color : Red Drainage : None Surrounding Tissue : Intact, Warmth Wound Dressing : Other: 2 pieces of tubeagrip applied; 1 from foot to ankle, 1 from ankle to knee Neurovascular Status : Neurovascular intact distal to injury, Pulses distal to injury palpable, Skindistal to injury warm and pink SABRINA MEDINA ANGELINE 02/19/2016 8:42 CDT Mando Sensory Perception Mando : No impairment Moisture Mando : Occasionally moist Activity Mando : Walks occasionally Mobility Mando : Slightly limited Nutrition Mando : Adequate Friction and Shear Mando : Potential problem Mando Score : 18 SABRINA MEDINA ANGELINE - 02/19/2016 8:42 CDT Musculoskeletal Musculoskeletal Patient Stated Symptoms : None Activity Tolerance : Without distress SABRNIA MEDINA ANGELINE 02/19/2016 8:42 CDT Peripheral IV Peripheral IV Assess/Intervention Grid Peripheral IV #1 IV Activity : Assessment Date of Insertion : 02/18/2016 CDT IV Site : Antecubital Laterality : Left Catheter Size : 20 Site Condition : No complications Drainage Description : None Dressing/ Activity : Dry, Intact, Transparent Flow/ Patency : No complications SABRINA MDEINA RN - 02/19/2016 8:42 CDT Hendrich II Fall Risk Confusion/Disorientation Hendrich : No Depression Fall Risk Hendrich : No Altered Elimination Fall Risk Hendrich : No Dizziness/Vertigo Fall Risk Hendrich : No Gender, Male Fall Risk Hendrich : No Prescribed Antiepileptics Hendrich : No Prescribed Benzodiazepines Hendrich : No Rising From Chair Fall Risk Hendrich : Pushes up, successful in one attempt Fall Risk Score Hendrich II : 1 SABRINA MEDINA RN - 02/19/2016 8:42 CDT Safe Patient Handling Safe Pt Handling Independent : Yes - No equipment needed Safe Pt Handling Equipment Rec : Unmotorized Equipment SABRINA MEDINA RN - 02/19/2016 8:42 CDT Education General Patient Education Power[employer] Topics : Exercise, Medication generic/brand names, purpose, action, Nutrition/Diet, Pain Management,Plan of care, Safety, fall, Turn/Cough/Deep breathing, Wound care Individuals Taught : Patient Barriers to Learning : None evident Teaching Method : Explanation Teaching Evaluation : Verbalizes understanding SABRINA MEDINA RN - 02/19/2016 8:42 CDT Source: [employer] Document Id: [id number] Miscellaneous - Sabrina Medina R.N. - 02/19/2016 7:37 AM CDT Adult Activities of Daily Living Adult Activities of Daily Living Entered On: 02/19/2016 7:40 CDT Performed On: 02/19/2016 7:37 CDT by SABRINA MEDINA RN ADLs I Patient Position : Supine Activity Status ADL : Up with assistance Activity Assistance : Supervision/Minimum 2 person assistance Assistive Device : Gait belt, Walker Repositioning/Pressure Reducing Devices : Pillow (Comment: pillow under right lower extremity [SABRINA MEDINA RN - 02/19/2016 7:37 CDT] ) Range of Motion LUE : Active Range of Motion RUE : Active Range of Motion LLE : Active Range of Motion RLE : Active SABRINA MEDINA RN - 02/19/2016 7:37 CDT ADLs II Hygiene Assistance Grid Leeanna Care : Maximum assistance SABRINA MEDINA RN - 02/19/2016 7:37 CDT Elimination Assistance Offered Q2H : Offered/Performed Bowel Movement Last Date : 02/19/2016 CDT Standard Safety : Bed alarm ON, Bed in low position, Call device within reach, Gait belt, ID band check, Non-Slip footwear, Rounds every 1 hour, Upper/Half- length side-rails up, Wheels locked SABRINA MEDINA RN - 02/19/2016 7:37 CDT ADLs Adult Nutrition Diet Type : Diet -- 02/18/16 15:31:00 CDT, General (Regular) SABRINA MEDINA RN - 02/19/2016 7:37 CDT Source: [employer] Document Id: [id number] [id number] [place] - Stacia Stone R.N. - 02/18/2016 8:30 PM CDT Adult Activities of Daily Living Adult Activities of Daily Living Entered On: 02/18/2016 23:19 CDT Performed On: 02/18/2016 20:30 CDT by STACIA STONE RN ADLs I Patient Position : Sitting in bed Activity Status ADL : Ambulating in preciado, Ambulating in room, Bathroom privileges Activity Assistance : Moderate 1 person assistance Assistive Device : Gait belt, Walker STACIA STONE RN - 02/18/2016 23:18 CDT ADLs II Bowel Movement Last Date : 02/18/2016 CDT Standard Safety : Bed alarm ON, Bed in low position, Gait belt, ID band check, Non-Slip footwear, Rounds every 2 hours STACIA STONE RN - 02/18/2016 23:18 CDT Source: [employer] Document Id: [id number] Miscellaneous - Stacia Stone R.N. - 02/18/2016 8:00 PM CDT Adult Ongoing Assessment Adult Ongoing Assessment Entered On: 02/18/2016 23:38 CDT Performed On: 02/18/2016 20:00 CDT by STACIA STONE RN Respiratory Respiratory Patient Stated Symptoms : None Respirations : Unlabored Distress : None Respiratory Pattern : Regular All Lobes Breath Sounds : Clear Cough : None Sputum Amount : None Suction : None Airway : Patent Respiratory Detailed Assessment : Yes STACIA STONE RN - 02/18/2016 23:31 CDT Resp Detailed Breath Sounds Assessment Grid ARSENIO : Clear RUL : Clear RML : Clear LLL : Clear RLL : Clear STACIA STONE RN - 02/18/2016 23:31 CDT Cardiovascular CV Patient Stated Symptoms : None Heart Rhythm : Regular Heart Sounds ICU : S1S2 Antiembolism Device Yes/No : No Nail Bed Color : [place] Capillary Refill : Less than 2 seconds Edema Assessment : Yes STACIA STONE RN - 02/18/2016 23:31 CDT Radial Pulse, Left : 2+ Normal Radial Pulse, Right : 2+ Normal Dorsalis Pedis Pulse, Left : 1+ Thready Dorsalis Pedis Pulse, Right : 1+ Thready STACIA STONE RN - 02/18/2016 23:31 CDT Skin Color : Normal for ethnicity Skin Description : Dry Skin Temperature : Warm Activity Tolerance : Without distress STACIA STONE RN - 02/18/2016 23:31 CDT Edema Details Edema Detailed Grid Ankle Edema Pedal Edema Right : 2+ mild/4mm 2+ mild/4mm STACIA STONE RN - 02/18/2016 23:31 CDT STACIA STONE RN - 02/18/2016 23:31 CDT Neurological Neuro Patient Stated Symptoms : None Orientation : Oriented x 3 Level of Consciousness : Alert Gait : Steady Swallowing Difficulty/Aspiration Risk : None Last Well Time Known : Not applicable STACIA STONE RN - 02/18/2016 23:31 CDT [place] Coma Eye Opening Response [place] : Spontaneously Best Verbal Response Kathleen : Oriented Best Motor Response Kathleen : Obeys simple commands [place] Coma Score : 15 STACIA STONE RN - 02/18/2016 23:31 CDT Psycho/Emotional Affect/Behavior : Calm, Cooperative Pain Symptoms : No Feels Rested : Yes STACIA STONE ANGELINE 02/18/2016 23:31 CDT Coping Grid Stable mood with appropriate affect : Yes Behaviors indicate use of coping mechanism : Yes Family supportive and involved in care : Yes Values/Beliefs incorporated appropriately : Yes STACIA STONE ANGELINE - 02/18/2016 23:31 CDT Gastrointestinal GI Patient Stated Symptoms : None Abdomen Description : Rounded, Symmetric Abdomen Palpation : Non-Tender Bowel Movement Last Date : 02/18/2016 CDT Bowel Sounds All Quadrants : Present QUEENIEPEDRO LUISSTACIA ANGELINE 02/18/2016 23:31 CDT Nutrition Appetite : Good Eating Difficulties : None Feeding Ability : Complete independence BERTHASTACIA ANGELINE 02/18/2016 23:31 CDT Genitourinary Patient Stated Symptoms : None Urinary Elimination : Voiding, no difficulties Urine Color : Yellow Urine Description : Clear Urine Odor : Odorless Bladder Distention : Absent BERTHASTACIA ANGELINE 02/18/2016 23:31 CDT Integumentary Integumentary Patient Stated Symptoms : Other: psoriasis Skin Turgor : Elastic Skin Integrity : Intact Mucous Membrane Color : Red Mucous Membrane Description : Moist STACIA STONE ANGELINE 02/18/2016 23:31 CDT Skin Abnormality/Location Grid Location : Lower leg Other: all over body, arms, butt, legs Laterality : Right Abnormality : Excoriation, Flaking, Other: tight Other: psoriasis Treatment : Lotion STACIA STONE 02/18/2016 23:31 CDT BERTHA STACIA Rodriguez ANGELINE 02/18/2016 23:31 CDT Skin Color : Normal for ethnicity Skin Description : Dry Skin Temperature : Warm STACIA STONE ANGELINE 02/18/2016 23:31 CDT Incision/Wound Incision/Wound Care Grid Activity : Assessed Wound Type : Other: cellulitis Location : Lower leg Laterality : Right Description : Dry, Edematous Color : Red Drainage : None Drainage Amount : None Surrounding Tissue : Erythema Wound Dressing : Open to air Neurovascular Status : Neurovascular intact distal to injury, Pulses distal to injury palpable, Skindistal to injury warm and pink STACIA STONE ANGELINE 02/18/2016 23:31 CDT Mando Sensory Perception Mando : No impairment Moisture Mando : Rarely moist Activity Mando : Walks frequently Mobility Mando : No limitations Nutrition Mando : Adequate Friction and Shear Mando : Potential problem Mando Score : 21 STACIA STONE RN - 02/18/2016 23:31 CDT Musculoskeletal Musculoskeletal Patient Stated Symptoms : None Activity Tolerance : Minimal distress STACIA STONE RN - 02/18/2016 23:31 CDT Peripheral IV Peripheral IV Assess/Intervention Grid Peripheral IV #1 IV Activity : Assessment Date of Insertion : 02/18/2016 CDT IV Site : Antecubital Laterality : Left Catheter Size : 20 Site Condition : No complications Drainage Description : None Dressing/ Activity : Dry, Intact, Transparent Flow/ Patency : No complications STACIA STONE RN - 02/18/2016 23:31 CDT Hendrich II Fall Risk Confusion/Disorientation Hendrich : Yes Depression Fall Risk Hendrich : No Altered Elimination Fall Risk Hendrich : No Dizziness/Vertigo Fall Risk Hendrich : No Gender, Male Fall Risk Hendrich : No Prescribed Antiepileptics Hendrich : No Prescribed Benzodiazepines Hendrich : No Rising From Chair Fall Risk Hendrich : Pushes up, successful in one attempt Fall Risk Score Hendrich II : 5 STACIA STONE RN - 02/18/2016 23:31 CDT Safe Patient Handling Safe Pt Handling Independent : No Safe Pt Handling Supervision/Minimal Assistance : Yes - Unmotorized Equipment Safe Pt Handling Equipment Rec : Unmotorized Equipment Repositioning Device Recommended : Yes STACIA STONE RN - 02/18/2016 23:31 CDT Education General Patient Education Powergrid Topics : Pain Management, Plan of care, Safety, fall Individuals Taught : Patient Barriers to Learning : Cognitive deficit Teaching Method : Explanation Teaching Evaluation : Needs reinforcement, Verbalizes understanding STACIA STONE RN - 02/18/2016 23:31 CDT Source: [facility] POWERCH[employer] Document Id: [id number] Miscellaneous - Sayda Andrews R.N. - 02/18/2016 2:34 PM CDT Adult Admission History Document Has Been Updated Adult Admission History Entered On: 02/18/2016 14:51 CDT Performed On: 02/18/2016 14:34 CDT by SAYDA ANDREWS RN General Info Status : Patient denies Are you ? : No SAYDA ANDREWS RN - 02/18/2016 14:51 CDT Preferred Name : Jade Admitted From : Non-Health Care Facility Point of Origin Mode of Arrival : Wheelchair Present in Room During Exam/Procedure : Father, Mother Chief Complaint : Cellulitis Preferred Communication Mode : Verbal Information Given By : Patient, Father, Mother Languages : Kiswahili Have you received chemotherapy in last 48 hours? : No Is Patient Female and 13-50 no hysterectomy : Yes SAYDA ANDREWS RN - 02/18/2016 14:34 CDT Allergy Latex Reaction : No Latex Hives/Itch : No Latex Congestion/Eye Irr/Breathing : No Latex Symptom Progression : No Latex Previous Test : No SAYDA ANDREWS RN - 02/18/2016 14:34 CDT (As Of: 02/18/2016 14:51:23 CDT) Allergies (Active) Bee Stings Comments: Comment 1: BEES ; Created By: ContributorWi3systemKG_LEONIDS; Reaction Status: Active ; Category: Environment ; Substance: Bee Stings ; Type: Unknown ; Updated By: SyncroPhi SystemssystemKG_SYS; Reviewed Date: 02/18/2016 14:37 CDT chloramphenicol containing compounds Comments: Comment 1: CHLORAMPHENICOL ; Created By: SyncroPhi SystemsKG garay_LEONIDS; Reaction Status: Active ; Category: Drug ; Substance: chloramphenicol containing compounds ; Type: Unknown ; Updated By: ContributorWi3systemAYDESUZANNA_LASHONDA; Reviewed Date: 02/18/2016 14:37 CDT quinolone antibiotics Comments: Comment 1: QUINOLONES - ciloxan eye tts ; Created By: Incuity SoftwareKG_LEONIDS; Reaction Status: Active ; Category: Drug ; Substance: quinolone antibiotics ;Type: Unknown ; Updated By: SyncroPhi SystemsAYDE garaySUZANNA_LEONIDS; Reviewed Date: 02/18/2016 14:37 CDT Problem List/Diagnoses (As Of: 02/18/2016 14:51:23 CDT) Problems(Active) Atrioventricular canal (SNOMED CT :979125844 ) Name of Problem: Atrioventricular canal ; Onset Date:03/26/2013 ; Recorder: TOOTIE LOPEZ LPN; Confirmation: Confirmed ; Classification: Nursing ; Code: 301116555 ; Contributor System: Power[employer] ; Last Updated: [...] Nursing ; Code: 453.40 ; Contributor System: [employer] ; Last Updated: 04/05/2013 10:26 CDT ; Life Cycle Date: 04/05/2013 ; 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: Active ; Responsible Provider: TOOTIE LOPEZ LPN; Vocabulary: ICD-9-CM Gallstone Without Obstruction (ICD-9-CM :574.20 ) Name of Problem: Gallstone Without Obstruction ; Recorder: BELLA NULL MD; Confirmation: Confirmed ; Classification: Medical ; Code: 574.20 ; Contributor System: [employer] ; Last Updated: 05/29/2014 11:11 BANQUET BARTENDER ; 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: Active ; Responsible Provider: BELLA NULL MD; Vocabulary: ICD-9-CM Impaired Fasting Glucose (ICD-9-CM :790.21 ) Name of Problem: Impaired Fasting Glucose ; Onset Date:07/22/2010 ; Confirmation: Confirmed ; Classification: Medical ; Code: 790.21 ; Contributor System: [employer] ; Last Updated: 06/06/2014 9:13 BANQUET BARTENDER ; 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: Active ; Vocabulary: ICD-9-CM ; Co mments: - Impaired fasting glucose Irregular Menstrual Cycle (ICD-9-CM :626.4 ) Name of Problem: Irregular Menstrual Cycle ; Onset Date: 07/28/2010 ; Confirmation: Confirmed ; Classification: Medical ; Code: 626.4 ; Contributor System: [facility] ; Last Updated: 09/21/2013 19:06 CDT ; 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: Active ; Vocabulary: ICD-9-CM ; Comments: - Irregular menses Mitral valve regurgitation NOS (ICD-9-CM :424.0 ) Name of Problem: Mitral valve regurgitation NOS ; Recorder: TOOTIE LOPEZ LPN; Confirmation: Confirmed ; Classification: Nursing ; Code: 424.0 ; Contributor System: [employer] ; Last Updated: 04/05/2013 10:25 CDT ; Life Cycle Date: 04/05/2013 ; 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: Active ; Responsible Provider: TOOTIE LOPEZ LPN; Vocabulary: ICD-9-CM ; Comments: 04/05/2013 10:25 - TOOTIE LOPEZ LPN unknown date of dx Mixed Hyperlipidemia (ICD-9-CM :272.2 ) Name of Problem: Mixed Hyperlipidemia ; Onset Date: 07/22/2010 ; Confirmation: Confirmed ; Classification: Medical ; Code: 272.2 ; Contributor System: [employer]; Last Updated: 06/06/2014 9:13 BANQUET BARTENDER ; 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: Active ; Vocabulary: [...] Merly Solomon ; Last Updated: 06/06/2014 9:13 BANQUET BARTENDER ; 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: Active ; Vocabulary: ICD-9-CM ; Comments: - Phlebitis and thrombophlebitis of other deep vessels of lower extremities Primary Hypercoagulable State (ICD-9-CM :289.81 ) Name of Problem: Primary Hypercoagulable State ; Onset Date: 01/29/2008 ; Confirmation: Confirmed ; Classification: Medical ; Code: 289.81 ; Contributor System: [facility] ; Last Updated: 09/21/2013 19:06 CDT ; 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: Active ; Vocabulary: ICD-9-CM ; Comments: - Protein S deficiency With elevated d-dimer Dr. Anna Riley rec: lifelong coumadin Psoriasis (ICD-9-CM :696.1 ) Name of Problem: Psoriasis ; Recorder: TOOTIE LOPEZ LPN; Confirmation: Confirmed ; Classification: Nursing ; Code: 696.1 ; Contributor System: [employer] ; Last Updated: 04/05/2013 10:24 CDT ; [...] Nursing ; Code: 424.2 ; Contributor System: [employer] ; Last Updated: 04/05/2013 10:25 CDT ; Life Cycle Date: 04/05/2013; 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: Active ; Responsible Provider: TOOTIE LOPEZ LPN; Vocabulary: ICD-9-CM ; Comments: 04/05/2013 10:25 - TOOTIE LOPEZ LPN unknown date of dx Anesth/Transfusion Anesthesia/Transfusions : Prior anesthesia Transfusion Acceptable in Emergency : Yes Rastafarian/Other Objections to Blood Transfusions : No SAYDA ANDREWS RN - 02/18/2016 14:34 CDT ID Screen Drug Resistant Organism : No Travel Within Last 21 Days : No Contact with someone with Ebola : No SAYDA ANDREWS RN - 02/18/2016 14:34 CDT Nutrition Have you recently lost weight without trying? 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 [facility] Resources : None SAYDA ANDREWS RN - 02/18/2016 14:34 CDT Dependent Habits Alcohol Use : No SAYDA ANDREWS RN - 02/18/2016 14:34 CDT Caffeine Use Grid Caffeine Use : Current Type : Soft drinks Frequency : Occasionally Amount : pop SAYDA ANDREWS RN - 02/18/2016 14:34 CDT Recreational Drug Use Grid Drug Use : None SAYDA ANDREWS RN - 02/18/2016 14:34 CDT Psychosocial Adult Domestic Abuse Concerns : None Concerns About Family Members at Home : No Emotional Support Available : Yes Caregiver Post Hospital Care : Yes Chronic/Terminal Illness Freq Visits : No Financial Concerns Regarding Hospitalization/Discharge : No Behavioral Health Screen/Safety Assmt : No Coping : Effective Stressors : None Rastafarian Preference : Unknown Cultural/Spiritual Practices : Baptist SAYDA ANDREWS RN - 02/18/2016 14:34 CDT Advance Directive Advanced Directives : No Advance Directive Additional Information : SAYDA Chavarria RN - 02/18/2016 14:34 CDT Educ Needs Patient/Family Education Needs : Pain management, Safety, fall, Siderails, Wound care SAYDA ANDREWS RN - 02/18/2016 14:34 CDT Learning Style Preference Adult Grid Patient : Demonstration, Verbal explanation Family : Printed materials, Verbal explanation, Demonstration SAYDA ANDREWS RN - 02/18/2016 14:34 CDT DC Needs Anticipated Discharge Date : 02/20/2016 CDT Discharge To, Anticipated : Home with family snf Treatments, Anticipated : None Professional Skilled Services, Anticipated : None Needs Assistance with Transportation : No Needs Assistance at Home Upon Discharge : No SAYDA ANDREWS RN - 02/18/2016 14:34 CDT [facility] [employer] Document Id: [id number]!4 Miscellaneous - Sayda Andrews RMichaelN. - 02/18/2016 2:14 PM CDT Adult Admission Assessment Adult Admission Assessment Entered On: 02/18/2016 14:33 CDT Performed On: 02/18/2016 14:14 CDT by SAYDA ANDREWS RN Respiratory Respiratory Patient Stated Symptoms : None Respirations : Unlabored Distress : None Respiratory Pattern : Regular All Lobes Breath Sounds : Clear Cough and Deep Breathe : Done Cough : None Sputum Amount : None Suction : None Airway : Patent SAYDA ANDREWS RN - 02/18/2016 14:14 CDT Cardiovascular CV Patient Stated Symptoms : None Heart Rhythm : Regular Heart Sounds ICU : S1S2 Antiembolism Device Yes/No : No Nail Bed Color : [place] Capillary Refill : Less than 2 seconds Edema Assessment : Yes SAYDA ANDREWS RN - 02/18/2016 14:14 CDT Radial Pulse, Left : 2+ Normal Radial Pulse, Right : 2+ Normal Dorsalis Pedis Pulse, Left : 2+ Normal Dorsalis Pedis Pulse, Right : 1+ Thready SAYDA ANDREWS RN - 02/18/2016 14:14 CDT Skin Color : Normal for ethnicity Skin Description : Normal Skin Temperature : Warm Activity Tolerance : Without distress ASYDA ANDREWS ANGELINE - 02/18/2016 14:14 CDT Edema Details Edema Detailed Grid Ankle Edema Pedal Edema Left : 1+ trace/2mm 1+ trace/2mm Right : 3+ moderate/6mm 3+ moderate/6mm SAYDA ANDREWS ANGELINE - 02/18/2016 14:14 CDT SAYDA ANDREWS ANGELINE - 02/18/2016 14:14 CDT Neurological Neuro Patient Stated Symptoms : Other: Downs Syndrome Orientation : Oriented x 3 Level of Consciousness : Alert Gait : Steady, Wide based Swallowing Difficulty/Aspiration Risk : None Last Well Time Known : Not applicable SAYDA ANDREWS ANGELINE - 02/18/2016 14:14 CDT [place] Coma Eye Opening Response [place] : Spontaneously Best Verbal Response [place] : Oriented Best Motor Response [place] : Obeys simple commands [place] Coma Score : 15 SAYDA ANDREWS ANGELINE - 02/18/2016 14:14 CDT Psycho/Emotional Pain Symptoms : Yes SAYDA ANDREWS ANGELINE - 02/18/2016 14:14 CDT Coping Grid Identifies effective strategies : Yes Uses effective strategies : Yes Reports increase in psychological comfort : Yes Indicates sense of control : Yes Stressors perceived within control : Yes Stable mood with appropriate affect : Yes Behaviors indicate use of coping mechanism : Yes Family supportive and involved in care : Yes Values/Beliefs incorporated appropriately : Yes SAYDA ANDREWS AGNELINE - 02/18/2016 14:14 CDT Safety Grid Vision, Hearing, Mobility Adequate to Meet Safety Needs : No SAYDA ANDREWS ANGELINE - 02/18/2016 14:14 CDT Pain Scale Pain Scale Verbal 0-10 : Open SAYDA ANDREWS ANGELINE - 02/18/2016 14:14 CDT Pain Pain Assessment Grid Pain 1 Location : Lower leg Laterality : Right Intensity : 10 Aggravating Factors : Movement, Palpation Alleviating Factors : Cold therapy, Medication, Rest Interventions : Cold, Medications, Repositioning SAYDA ANDREWS ANGELINE - 02/18/2016 14:14 CDT Gastrointestinal GI Patient Stated Symptoms : None Abdomen Description : Obese, Symmetric Abdomen Palpation : Non-Tender Bowel Movement Last Date : 02/18/2016 CDT Bowel Sounds All Quadrants : Present Passing Flatus : Yes SAYDA ANDREWS ANGELINE - 02/18/2016 14:14 CDT Genitourinary Patient Stated Symptoms : None Urinary Elimination : Voiding, no difficulties Bladder Distention : Absent SHERIFGURINDRE SAYDAKIP Treviño RN - 02/18/2016 14:14 CDT Integumentary Integumentary Patient Stated Symptoms : None Skin Turgor : Elastic Skin Integrity : Not intact Mucous Membrane Color : [place] Mucous Membrane Description : Moist SHERIFGURINDER SAYDA R RN - 02/18/2016 14:14 CDT Skin Abnormality/Location Grid Location : Lower arm Other: all over body, arms, butt, legs Laterality : Right Abnormality : Excoriation, Flaking, Other: tight Other: psoriasis Treatment : Lotion IVY SAYDAKIP Treviño RN - 02/18/2016 14:14 CDT SAYDA ANDREWS RN - 02/18/2016 14:14 CDT Integ Note : Pt has surgical incisions from heart surgery, gall stones on right abd, and left knee from skin removal from past cellulitis. All well healed. Skin Color : Normal for ethnicity Skin Description : Normal Skin Temperature : Warm IVY SAYDAKIP Treviño RN - 02/18/2016 14:14 CDT Incision/Wound Incision/Wound Care Grid Activity : Assessed Wound Type : Other: cellulitis Location : Lower leg Laterality : Right Description : Dry, Flat, High risk area - skin intact, Tender Color : Red Drainage : None Drainage Amount : None Neurovascular Status : Neurovascular intact distal to injury, Pulses distal to injury palpable, Skindistal to injury warm and pink SHERIFGURINDER SAYDAKIP Treviño RN - 02/18/2016 14:14 CDT Mando Sensory Perception Mando : No impairment Moisture Mando : Rarely moist Activity Mando : Walks occasionally Mobility Mando : Slightly limited Nutrition Mando : Excellent Friction and Shear Mando : Potential problem Mando Score : 20 SHERIFGURINDER SAYDAKIP Treviño RN - 02/18/2016 14:14 CDT Peripheral IV Peripheral IV Assess/Intervention Grid Peripheral IV #1 IV Activity : Assessment, Saline lock Date of Insertion : 02/18/2016 CDT IV Site : Antecubital Laterality : Left Catheter Size : 20 Site Condition : No complications Drainage Description : None Infiltration Score : 0 Phlebitis Score : 0 Dressing/ Activity : Dry, Intact, Transparent Flow/ Patency : No complications SAYDA ANDREWS RN - 02/18/2016 14:14 CDT Hendrich II Fall Risk Confusion/Disorientation Hendrich : Yes Depression Fall Risk Hendrich : No Altered Elimination Fall Risk Hendrich : No Dizziness/Vertigo Fall Risk Hendrich : No Gender, Male Fall Risk Hendrich : No Prescribed Antiepileptics Hendrich : No Prescribed Benzodiazepines Hendrich : No Rising From Chair Fall Risk Hendrich : Able to rise in a single movement, no loss of balance with steps Fall Risk Score Hendrich II : 4 SAYDA ANDREWS RN - 02/18/2016 14:14 CDT Safe Patient Handling Safe Pt Handling Independent : Yes - No equipment needed Safe Pt Handling Equipment Rec : No Equipment Needed Repositioning Device Recommended : Yes SAYDA ANDREWS RN - 02/18/2016 14:14 CDT Education General Patient Education [employer] Topics : Safety, fall, Wound care Individuals Taught : Patient, Parent Barriers to Learning : Cognitive deficit Teaching Method : Demonstration, Explanation Teaching Evaluation : Able to teach back, Needs reinforcement, Verbalizes understanding SAYDA ANDREWS RN - 02/18/2016 14:14 CDT Source: [employer] Document Id: [id number]!160 Miscellaneous - Sayda Andrews RMichaelN. - 02/18/2016 2:00 PM CDT Basic Admission Information Document Has Been Updated Basic Admission Information Entered On: 02/18/2016 14:57 CDT Performed On: 02/18/2016 14:00 CDT by SAYDA ANDREWS RN Vital Signs Temperature Core : 37.3 DegC(Converted to: 99.1 DegF) Peripheral Pulse Rate : 85 /min Respiratory Rate : 18 /min Systolic Blood Pressure : 110 mmHg Diastolic Blood Pressure : 72 mmHg NIBP Mean : 85 mmHg BP Location : Right upper extremity SpO2 : 97 % Oxygen Therapy : Room air Height : 148 cm(Converted to: 4 ft 10 inch(es)) Actual Weight : 83.0 kg Actual Weight Conversion to Pounds : 182.6 lb Weight Source : Chair scale Height Source : Stated Body Mass Index : 37.89 kg/m2 SAYDA ANDREWS RN - 02/18/2016 14:53 CDT Allergy Rule (As Of: 02/18/2016 14:57:17 CDT) Allergies (Active) Bee Stings Comments: Comment 1: BEES ; Created By: [facility]Wi3system [facility]; Reaction Status: Active ; Category: Environment ; Substance: Bee Stings ; Type: Unknown ; Updated By: Contributor_system [facility]; Reviewed Date: 02/18/2016 14:56 CDT chloramphenicol containing compounds Comments: Comment 1: CHLORAMPHENICOL ; Created By: ContributorW[employer] [facility]UNRULY_LASHONDA; Reaction Status: Active ; Category: Drug ; Substance: chloramphenicol containing compounds ; Type: Unknown ; Updated By: ContributorW[employer] [facility]UNRULY_LASHONDA; Reviewed Date: 02/18/2016 14:56 CDT quinolone antibiotics Comments: Comment 1: QUINOLONES - ciloxan eye tts ; Created By: ContributorWi3system [facility]CHARLI[facility]TOBIAS[facility]SYS; Reaction Status: Active ; Category: Drug ; Substance: quinolone antibiotics ;Type: Unknown ; Updated By: ContributorW[employer] [facility]CHARLI_BLAYNEG_SYS; Reviewed Date: 02/18/2016 14:56 CDT Valuables/Belongings Valuables/Belongings Grid Valuables at Bedside Clothes, Patient Valuables : Pants, Shirt, Undergarments Electronic Devices : Cell phone Jewelry : None Monetary Items : None Personal Devices : None SAYDA ANDREWS RN - 02/18/2016 14:53 CDT Room Orientation/Facility Policy Reviewed : Yes Home Medication Disposition : None brought in with patient SAYDA ANDREWS RN - 02/18/2016 14:53 CDT [facility] [employer] Document Id: [id number] CDT!27 documented in this encounter Plan of Treatment Not on filedocumented as of this encounter Procedures Procedure Name Priority Date/Time Associated Comments Diagnosis PROTHROMBIN TIME (PT), Routine 02/21/2016 8:11 AM Results for this P CDT procedure are i n the results section. AUTOMATED Routine 02/20/2016 6:30 AM Results f or this DIFFERENTIAL, B CDT procedure ar e in the results section. PROTHROMBIN TIME (PT), Routine 02/20/2016 6:30 AM Results for this P CDT procedure are i n the results section. CBC WITH DIFFERENTIAL, Routine 02/20/2016 6:30 AM Results for this B CDT procedure are i n the results section. C-REACTIVE PROTEIN Routine 02/20/2016 6:30 AM Res ults for this (CRP), S/P CDT procedure are i n the results section. COMPREHENSIVE Routine 02/20/2016 6:30 AM Results for this METABOLIC PANEL, S/P CDT procedu re are in the results section. AUTOMATED Routine 02/19/2016 7:09 AM Results f or this DIFFERENTIAL, B CDT procedure ar e in the results section. PROTHROMBIN TIME (PT), Routine 02/19/2016 7:09 AM Results for this P CDT procedure are i n the results section. CBC WITH DIFFERENTIAL, Routine 02/19/2016 7:09 AM Results for this B CDT procedure are i n the results section. BASIC METABOLIC PANEL, Routine 02/19/2016 7:09 AM Results for this S/P CDT procedure are i n the results section. PROTHROMBIN TIME (PT), Routine 02/18/2016 4:00 PM Results for this P CDT procedure are i n the results section. documented in this encounter Results (ABNORMAL) PT (Prothrombin Time) with INR (02/21/2016 8:11 AM CDT) [facility] Stalkthis Method Time Signature Prothrombin 35.2 (H) 8.7 - 11.8 POWERCHART Time, P SECONDS INR 3.01 (H) 0.90 - 1.16 POWERCHART Specimen (Source) Anatomical Collection Method Collection Time Re ceived Time Location / / Volume Laterality Blood 02/21/2016 8:11 AM CDT Xu Brasher M.D. LAB BLOOD ADD-ON Performing Organization Address City/State/ZIP Code Phon e Number POWERCHART (ABNORMAL) Automated Differential (02/20/2016 6:30 AM CDT) [facility] Method Time Signature Absolute 3.23 1.70 - POWERCHART Neutrophils 7.00 109L Lymphocytes 0.77 (L) 0.90 - POWERCHART 2.90 X109L Monocytes 0.37 0.30 - POWERCHART 0.90 X109L Eosinophils 0.03 (L) 0.05 - POWERCHART 0.50 X109L Absolute 0.01 0.00 - POWERCHART Basophil 0.30 X109L Specimen Anatomical Collection Method Collection Time Receive d Time (Source) Location / / Volume Laterality Blood 02/20/2016 6:30 AM 6 6:30 CDT AM CDT Xu Brasher M.D. LAB BLOOD ADD-ON Performing Organization Address City/State/[facility] Code Phon e Number POWERCHART (ABNORMAL) CBC with Differential (02/20/2016 6:30 AM CDT) [facility] Method Time Signature Leukocytes 4.4 3.4 - 10.5 POWERCHART X109L Erythrocytes 3.56 (L) 3.90 - POWERCHART 5.03 [id number] Hemoglobin 11.7 (L) 12.0 - POWERCHART 15.5 GDL Hematocrit 36.2 34.9 - POWERCHART 44.5 MCV 101.7 (H) 81.6 - POWERCHART 98.3 FL HX RDW 13.4 11.9 - POWERCHART 15.5 Platelet Count 159 150 - 450 POWERCHART X109L Specimen (Source) Anatomical Collection Method Collection Time Re ceived Time Location / / Volume Laterality Blood 02/20/2016 6:30 AM CDT Xu Brasher M.D. LAB BLOOD ADD-ON Performing Organization Address [facility] Phon e Number POWERCHART (ABNORMAL) PT (Prothrombin Time) with INR (02/20/2016 6:30 AM CDT) [facility] Method Time Signature Prothrombin 59.5 (H) 8.7 - 11.8 POWERCHART Time, P SECONDS INR 4.76 (H) 0.90 - 1.16 POWERCHART Specimen (Source) Anatomical Collection Method Collection Time Re ceived Time Location / / Volume Laterality Blood 02/20/2016 6:30 AM CDT Xu Brasher M.D. LAB BLOOD ADD-ON Performing Organization Address City/[facility] Phon e Number POWERCHART (ABNORMAL) CRP (C-Reactive Protein) (02/20/2016 6:30 AM CDT) P athologist Signature C-Reactive 97.9 (H) <=5.0 MGL POWERCHART Protein (CRP), S Specimen (Source) Anatomical Collection Method Collection Time Re ceived Time Location / / Volume Laterality Blood 02/20/2016 6:30 AM CDT Xu Brasher M.D. LAB BLOOD ADD-ON Performing Organization Address City/State/ZIP Code Phon e Number POWERCHART (ABNORMAL) CMP (Comprehensive Metabolic Panel) (02/20/2016 6:30 AM CDT) [facility] Method Time Signature Alanine 39 7 - 45 POWERCHART Amniotransferase, LD UNITL Albumin, S 2.6 (L) 3.5 - 5.0 POWERCHART GDL Alkaline 121 (H) 37 - 98 POWERCHART Phosphatase, S UL Aspartate 34 8 - 43 POWERCHART Aminotransferase UNITL (AST), S Sodium, S 134.8 (L) 135.0 - POWERCHART 145.0 MML Potassium, S 4.1 3.6 - 4.8 POWERCHART MMOLL Chloride, S 103 98 - 107 POWERCHART MMOLL CO2 Total 22.4 (L) 23.0 - POWERCHART 29.0 MMOLL BUN (Blood Urea 14 7 - 18 POWERCHART Nitrogen), S MGDL Creatinine 1.15 0.60 - POWERCHART 1.30 MGDL Calcium, Total, S 8.6 8.6 - POWERCHART 10.0 MGDL Anion Gap 9 (L) 10 - 20 POWERCHART MMOLL HXeGFR (MDRD) 52 (L) >=60 POWERCHART [id number] 2 eGFR Black/ >60 >=60 POWERCHART Gabonese [id number] 2 Bilirubin, Total, S 0.4 0.1 - 1.0 POWERCHART MGDL Total Protein, S 6.6 6.3 - 7.9 POWERCHART GDL Glucose 107 70 - 139 POWERCHART MGDL Specimen (Source) Anatomical Collection Method Collection Time Re ceived Time Location / / Volume Laterality Blood 02/20/2016 6:30 AM CDT Xu Brasher M.D. LAB BLOOD ADD-ON Performing Organization Address City/State/ZIP Code Phon e Number POWERCHART (ABNORMAL) Automated Differential (02/19/2016 7:09 AM CDT) [facility] Method Time Signature Absolute 3.29 1.70 - POWERCHART Neutrophils 7.00 109L Lymphocytes 0.92 0.90 - POWERCHART 2.90 X109L Monocytes 0.44 0.30 - POWERCHART 0.90 X109L Eosinophils 0.03 (L) 0.05 - POWERCHART 0.50 X109L Absolute 0.01 0.00 - POWERCHART Basophil 0.30 X109L Specimen Anatomical Collection Method Collection Time Receive d Time (Source) Location / / Volume Laterality Blood 02/19/2016 7:09 AM 6 7:09 CDT AM CDT Xu Brasher M.D. LAB BLOOD ADD-ON Performing Organization Address City/State/ZIP Code Phon e Number POWERCHART (ABNORMAL) PT (Prothrombin Time) with INR (02/19/2016 7:09 AM CDT) [facility] gist Method Time Signature Prothrombin 58.9 (H) 8.7 - 11.8 POWERCHART Time, P SECONDS INR 4.72 (H) 0.90 - 1.16 POWERCHART Specimen (Source) Anatomical Collection Method Collection Time Re ceived Time Location / / Volume Laterality Blood 02/19/2016 7:09 AM CDT Xu Brasher M.D. LAB BLOOD ADD-ON Performing Organization Address City/[facility]/ZIP Code Phon e Number POWERCHART (ABNORMAL) CBC with Differential (02/19/2016 7:09 AM CDT) Analysis Performed At [facility] logist Time Signature Leukocytes 4.7 3.4 - 10.5 POWERCHART X109L Erythrocytes 3.49 (L) 3.90 - POWERCHART 5.03 [id number] Hemoglobin 11.5 (L) 12.0 - POWERCHART 15.5 GDL Hematocrit 34.8 (L) 34.9 - POWERCHART 44.5 MCV 99.7 (H) 81.6 - POWERCHART 98.3 FL HX RDW 13.4 11.9 - POWERCHART 15.5 Platelet Count 164 150 - 450 POWERCHART X109L Specimen (Source) Anatomical Collection Method Collection Time Re ceived Time Location / / Volume Laterality Blood 02/19/2016 7:09 AM CDT Xu Brasher M.D. LAB BLOOD ADD-ON Performing Organization Address City/State/ZIP Code Phon e Number POWERCHART (ABNORMAL) BMP (Basic Metabolic Panel) (02/19/2016 7:09 AM CDT) Analysis Performed At [facility] logist Time Signature Sodium, S 136.9 135.0 - POWERCHART 145.0 MML Potassium, S 3.8 3.6 - 4.8 POWERCHART MMOLL Chloride, S 103 98 - 107 POWERCHART MMOLL CO2 Total 24.6 23.0 - POWERCHART 29.0 MMOLL BUN (Blood Urea 17 7 - 18 POWERCHART Nitrogen), S MGDL Creatinine 1.50 (H) 0.60 - POWERCHART 1.30 MGDL Calcium, Total, 9.0 8.6 - 10.0 POWERCHART S MGDL Anion Gap 9 (L) 10 - 20 POWERCHART MMOLL HXeGFR (MDRD) 38 (L) >=60 POWERCHART [id number] eGFR 46 (L) >=60 POWERCHART Black/ [id number] Gabonese Glucose 112 70 - 139 POWERCHART MGDL Specimen (Source) Anatomical Collection Method Collection Time Re ceived Time Location / / Volume Laterality Blood 02/19/2016 7:09 AM CDT Xu Brasher M.D. LAB BLOOD ADD-ON Performing Organization Address City/State/ZIP Code Phon e Number POWERCHART (ABNORMAL) PT (Prothrombin Time) with INR (02/18/2016 4:00 PM CDT) Patholo gist Method Time Signature Prothrombin 45.3 (H) 8.7 - 11.8 POWERCHART Time, P SECONDS INR 3.76 (H) 0.90 - 1.16 POWERCHART Specimen (Source) Anatomical Collection Method Collection Time Re ceived Time Location / / Volume Laterality Blood 02/18/2016 4:00 PM CDT Xu Brasher M.D. LAB BLOOD ADD-ON Performing Organization Address City/State/ZIP Code Phon e Number POWERCHART documented in this encounter Visit Diagnoses Not on filedocumented in this encounter
--- OUTSIDE RECORDS SUMMARY | 2022-04-25 16:01 | XMS_ITS | Encounter Summary ---
:1975 Author Organization [facility] Address [address] [place] [id number] Care Team Providers Name Role Phone Unavailable Primary Care Provider Unavailable Encounter Details Date Type Department Care Team Description 03/04/2016 Hospital Encounter HX [facility] NUTRITION Marsha Garibay M.D. [address] [place], [place] [address] (Wo rk) Social History [...] - - Height 148 cm (4' 10.27) 03/04/2016 12:44 PM CDT Body Mass Index - - documented [...] a day. documented as of this encounter Miscellaneous Notes Miscellaneous - María Mcneal RDN, C.D.E. - 03/04/2016 1:57 PM CDT *General Message From: MARÍA MCNEAL RDN, C.D.E Sent: 03/04/2016 13:57:27 CDT Subject: *General Message Beulah's mother called. She states Beulah has Down's syndrome and has lived independently for 20 years. 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 Beulah was recently hospitalized with cellulitis. Patient's weight has continued to increase over the years mainly due to larger portions. Family is tryingto help so that patient does not continue to gain weight. Today they met with wellness trainer at [facility] who will work with Beulah in getting moderate exercise 30 minutes 2x/week for the next 10 weeks. Ifthis goes well they will continue with the program. Currently Beulah eats applesauce, yogurt and glass of apple juice for breakfast; brings leftovers or tv dinner or chicken tenders or hot dog for lunch. She drinks lemonade on her breaks. Supper might be microwave mac and cheese. LSS cooks with her every Tues and Mom feels this is quite a large meal and patient eats it all. She snacks on larger amounts of sherbert, frosted cookies. Mom is wondering if I'd heard anything about Mom's Meals; they are t hinking about ordering them for Beulah for evening meal so that she would have portioned amount for supper. I told mother that others have used Mom's Meals and liked them. I would likely go with the [employer] meals. They are also going to try decrease amount of sweets Beulah brings into her house. Commended them for finding ways to get activity. They will call if they have further questions about Mom's meals or other foods. Source: [facility] POWERCHART Document Id: [id number] Electronically signed by Conversion, [facility] Hospitalsylvia Hand Etcher Helper [id number] at 11/20/2016 5:43 AM CDT documented in this encounter Plan of Treatment Not on filedocumented as of this encounter Visit Diagnoses Not on filedocumented in this encounter
--- OUTSIDE RECORDS SUMMARY | 2022-04-25 16:01 | XMS_ITS | Encounter Summary ---
:1975 Author Organization [facility] Address [address] [place] [id number] Care Team Providers Name Role Phone Unavailable Primary Care Provider Unavailable Encounter Details Date Type Department Care Team Description 03/01/[address] [facility] Andrea Whipple M.D. [address] [place], [place] [address] (Wo rk) Social History [...] - - Height 148 cm (4' 10.27) 03/01/2016 11:33 AM CDT Body Mass Index - - [...] a day. documented as of this encounter Procedure Notes Conversion, Historical Provider Ser - 03/01/2016 11:52 AM CDT Protime/INR Point of Care Protime/INR Point of Care Entered On: 03/01/2016 11:52 CDT Performed On: 03/01/2016 11:52 CDT by VIRGINIA BOWERS RN Protime/INR Point of Care INR goal range : 2.0 - 3.0 Duration of Therapy : Lifelong INR POC Results : 2.5 (HI) Instrument Number : [id number] Internal QC : Pass Dulce Lot Number : [id number] Cuvlaxmi Expiration Date : 05/25/2016 REGIONAL CONTROLLER Comment : see intake form Total Weekly Warfarin Dose : 14 VIRGINIA BOWERS RN - 03/01/2016 11:52 CDT Source: [facility] [employer] Document Id: [id number] CDT!11 documented in this encounter Miscellaneous Notes Miscellaneous - Conversion, Historical Provider Ser - 03/01/2016 1:27 PM CDT INR management Document Contains Addenda Addendum by WALI BRITO RN on March 02, 2016 13:29:26 CDT From: WALI BRITO RN ( Anticoagulation Nurse) To: VIRGINIA BOWERS RN; Sent: 03/02/2016 13:29:26 CDT Subject: RE: INR management Noted. INR scheduled for 03/04/16. Thanks! From: VIRGINIA BOWERS RN To: WALI BRITO RN; Anticoagulation Nurse; Sent: 03/01/2016 13:27:00 CDT Subject: INR management Pt was here today Her INR was 2.5mg I recommended she get a recheck on Monday when she is in for a provider appt. Could you please call pt and get this scheduled? Pt mother requested to return to [facility] since stay in was temporary. Source: [facility] [employer] Document Id: [id number] Miscellaneous - Conversion, Historical Provider Ser - 03/01/2016 11:43 AM CDT Anticoagulation Patient Intake Anticoagulation Patient Intake Entered On: 03/01/2016 11:44 CDT Performed On: 03/01/2016 11:43 CDT by VIRGINIA BOWERS RN Plan INR goal range : 2.0 - 3.0 Duration of Therapy : Lifelong Tablet Size : 2 mg, 5 mg VIRGINIA BOWERS RN - 03/01/2016 11:43 CDT VIRGINIA BOWERS RN - 03/01/2016 11:43 CDT Anticoagulation Management Plan Grid Date : [...] Plan completed by : darya BURGESS JM VIRGINIA Camarena RN - 03/01/2016 11:43 CDT VIRGINIA BOWERS RN - 03/01/2016 11:43 CDT VIRGINIA BOWERS RN - 03/01/2016 11:43 CDT VIRGINIA BOWERS RN - 03/01/2016 11:43 CDT Date : 12/26/2013 CDT 01/30/2014 CDT [...] 03/10/2014 Other: 03/20/14 Plan completed by : VIRGINIA Tate RN - 03/01/2016 11:43 CDT VIRGINIA BOWERS RN - 03/01/2016 11:43 CDT VIRGINIA BOWERS RN - 03/01/2016 11:43 CDT VIRGINIA BOWERS RN - 03/01/2016 11:43 CDT Date : 03/20/2014 CDT 03/27/2014 CDT [...] Other: Plan completed by : darya lackey [facility]pharmacy VIRGINIA BOWERS RN - 03/01/2016 11:43 CDT VIRGINIA BOWERS RN - 03/01/2016 11:43 CDT VIRGINIA BOWERS RN - 03/01/2016 11:43 CDT VIRGINIA BOWERS RN - 03/01/2016 11:43 CDT Date : 04/17/2014 CDT 04/24/2014 CDT 05/01/2014 REGIONAL CONTROLLER 05/15/2014 REGIONAL CONTROLLER Location of INR sample : Lab Lab [...] will trynoted dose called to mom Fabiola [phone] called to Fabiola/no changes Called to mother/Fabiola, not awareof any changes Recommend Recheck : One week One week Two weeks Two weeks Plan completed by : VIRGINIA HARRY RN - 03/01/2016 11:43 VIRGINIA CARBAJAL RN - 03/01/2016 11:43 CDT VIRGINIA BOWERS RN - 03/01/2016 11:43 CDT VIRGINIA BOWERS RN - 03/01/2016 11:43 CDT Date : 06/03/2014 REGIONAL CONTROLLER 06/05/2014 REGIONAL CONTROLLER 06/10/2014 REGIONAL CONTROLLER 06/11/2014 REGIONAL CONTROLLER Location of INR sample : Lab Type [...] 05/29. Having cholecystectomy 06/11. Will have pre-op 12/15. Will message Dr. Henriquez to check about when to stop coumadin and if bridging needed. Called to mother/Fabiola. Per message from Dr. Henriquez, stop coumadin 5days prior to surgery (06/06) with no bridging. Called motherFabiola. Hue will be staying in [place] 2wks post-surgery & have INR drawn there. [...] lovenox tomorrow AM as ordered. INR in [place] for next several weeks as pt will be recovering there. Recommend Recheck : Other: depending on Dr. Henriquez's preop. Other: 06/18 Other: 06/13/14 Plan completed by : VIRGINIA ALEJANDRO RN - 03/01/2016 11:43 CDT VIRGINIA BOWERS RN - 03/01/2016 11:43 CDT VIRGINIA BOWERS RN - 03/01/2016 11:43 CDT VIRGINIA BOWERS RN - 03/01/2016 11:43 CDT Date : 06/14/2014 REGIONAL CONTROLLER 06/14/2014 REGIONAL CONTROLLER 06/16/2014 REGIONAL CONTROLLER 06/23/2014 REGIONAL CONTROLLER Location of INR sample : Clinic Lab Lab Type of Sample : Venous Venous INR Result : 1.3 on 06/13 2.4 faxed from lab 2.0 Warfarin Dose : (pt took 2.5mg 06/13) 5mg Sat and 5mg Sun (06/14 and 06/15) 5mg Mon and 2.5mg all other days 5mg Mon and 2.5mg all other days Total Weekly Warfarin Dose : 20 20 Comment : [place] lab called with INR result from 06/13, reported they left a message with Dr. Henriquez and hadn't heard back, spoke with motherFabiola, and gave doses, continue Lovenox and repeat INR 06/16, message left with INR clinic in [place] to contact CF Please contact [facility] on 06/16 for result and may call Fabiola at [phone] with instructions call to Fabiola/will stop Lovenox injections and take noted dose/pt has an appt here in [place] 06/23 so will do lab appt here that day Called to Fabiola/ Hue will be back at [facility] by next draw. will have done on . no changes to meds/diet. Recommend Recheck : Two days One week Two weeks Plan completed by : VIRGINIA Carrion LM RN - 03/01/2016 11:43 CDT VIRGINIA BOWERS RN - 03/01/2016 11:43 CDT VIRGINIA BOWERS RN - 03/01/2016 11:43 CDT VIRGINIA BOWERS RN - 03/01/2016 11:43 CDT Date : 07/10/2014 REGIONAL CONTROLLER 07/17/2014 REGIONAL CONTROLLER 07/31/2014 REGIONAL CONTROLLER 09/11/2014 CDT Location of INR sample : [...] weeks Two weeks Plan completed by : VIRGINIA Bell RN - 03/01/2016 11:43 CDT VIRGINIA BOWERS RN - 03/01/2016 11:43 CDT VIRGINIA BOWERS RN - 03/01/2016 11:43 CDT VIRGINIA BOWERS RN - 03/01/2016 11:43 CDT Date : 09/12/2014 CDT 09/25/2014 CDT [...] Mom/Fabiola, no changes, rev'd w/[facility]/Pharmacy called to Castro/Fabiola, no changes Recommend Recheck : Two weeks One week One week Two weeks Plan completed by : VIRGINIA Norwood RN - 03/01/2016 11:43 CDT VIRGINIA BOWERS RN - 03/01/2016 11:43 CDT VIRGINIA BOWERS RN - 03/01/2016 11:43 CDT VIRGINIA BOWERS RN - 03/01/2016 11:43 CDT Date : 10/23/2014 CDT 11/13/2014 CDT [...] week One week Plan completed by : VIRGINIA Sawyer RN - 03/01/2016 11:43 CDT VIRGINIA BOWERS RN - 03/01/2016 11:43 CDT VIRGINIA BOWERS RN - 03/01/2016 11:43 CDT VIRGINIA BOWERS RN - 03/01/2016 11:43 CDT Date : 12/04/2014 CDT 12/18/2014 CDT [...] week Two weeks Plan completed by : VIRGINIA Kwon RN - 03/01/2016 11:43 CDT VIRGINIA BOWERS RN - 03/01/2016 11:43 CDT VIRGINIA BOWERS RN - 03/01/2016 11:43 CDT VIRGINIA BOWERS RN - 03/01/2016 11:43 CDT Date : 02/05/2015 CDT 02/26/2015 CDT [...] weeks Three weeks Plan completed by : VIRGINIA MUÑIZ RN - 03/01/2016 11:43 CDT VIRGINIA BOWERS RN - 03/01/2016 11:43 CDT VIRGINIA BOWERS RN - 03/01/2016 11:43 CDT VIRGINIA BOWERS RN - 03/01/2016 11:43 CDT Date : 04/09/2015 CDT 05/07/2015 REGIONAL CONTROLLER 06/04/2015 REGIONAL CONTROLLER 07/02/2015 REGIONAL CONTROLLER Location of INR sample : Lab Lab [...] changes on Mom/Fabiola's identifiedVM, Orders called to Mom/Faibola, no changes Orders called to Fabiola/mother. No changes. Recommend Recheck : One month One month One month Other: 5 weeks Plan completed by : VIRGINIA Blanca RN - 03/01/2016 11:43 CDT VIRGINIA BOWERS RN - 03/01/2016 11:43 CDT VIRGINIA BOWERS RN - 03/01/2016 11:43 CDT VIRGINIA BOWERS RN - 03/01/2016 11:43 CDT Date : 08/06/2015 REGIONAL CONTROLLER 09/17/2015 CDT 10/29/2015 CDT 11/12/2015 CDT Location [...] 22.5 20 Comment : Orders called to Afbiola/mother. No changes. Called to Mom/Fabiola, no changes called to Mom/Fabiola, no changes Called to Mom/Fabiola, no changes, will try dec Recommend Recheck : Six weeks Six weeks Two weeks One week Plan completed by : VIRGINIA Priest RN - 03/01/2016 11:43 CDT VIRGINIA BOWERS RN - 03/01/2016 11:43 CDT VIRGINIA BOWERS RN - 03/01/2016 11:43 CDT VIRGINIA BOWERS RN - 03/01/2016 11:43 CDT Date : 11/19/2015 CDT 12/03/2015 CDT [...] month One month Plan completed by : VIRGINIA Bernardo RN - 03/01/2016 11:43 CDT VIRGINIA BOWERS RN - 03/01/2016 11:43 CDT VIRGINIA BOWERS Javier RN - 03/01/2016 11:43 CDT MAULIKChantalVIRGINIA HANSEN Javier RN - 03/01/2016 11:43 CDT Date : 02/19/2016 CDT 02/20/2016 CDT [...] Brizuela, PharmMichaelDMichael ASTUDILLO, PharmD Eliseo Quezada PharmD. CHARLESLEONORAVIRGINIA S RN - 03/01/2016 11:43 CDT ROSARIOTYRONELEONORAVIRGINIA S RN - 03/01/2016 11:43 CDT VIRGINIA BOWERS RN - 03/01/2016 11:43 CDT VIRGINIA BOWERS RN - 03/01/2016 11:43 CDT Date : 02/23/2016 CDT 02/24/2016 CDT [...] Alida. Eliseo Quezada, PharmRohit Brizuela, Pharm.DRea MachadoD. VIRGINIA BOWERS RN - 03/01/2016 11:43 CDT VIRGINIA BOWERS RN - 03/01/2016 11:43 CDT VIRGINIA BOWERS RN - 03/01/2016 11:43 CDT VIRGINIA BOWERS RN - 03/01/2016 11:43 CDT Date : 02/27/2016 CDT 03/01/2016 CDT Location of INR sample : Hospital Clinic Type of Sample : Venous Capillary/POC INR Result : 2.07 2.5 Warfarin Dose : 2 mg daily 2mg daily Total Weekly Warfarin Dose : 14 Comment : Pt being discharged on Bactrim. 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 Pt mother states plan to return to [facility] on 03/06. next f/u will be in [facility]. 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 : DVT Lower, Other: Deep Phlebitis-Leg NEC CHADS2 Score Date : 09/05/2013 CDT VIRGINIA BOWERS RN - 03/01/2016 11:43 CDT Changes / Problems Changes/Problems Since Last Visit : None Been Scheduled For : None Missed Coumadin Doses : None Change In Intake : None Change In Medication : None Have You Had : None Plans to Travel : No VIRGINIA BOWERS RN - 03/01/2016 11:43 CDT Education Reg STK Discharge Info Anticoag Specific : Anticoagulation compliance issues (taking warfarin as instructed and monitoring warfarin with scheduled INR blood draws), Anticoagulation follow-up monitoringof warfarin post-discharge, Potential adverse drug reactions or interactions (diet and meds can affect INR levels. Do not take or stop any meds or over the counter meds except on the advice of the physician or pharmacist and warfarin increases the risk of bleeding) VIRGINIA BOWERS RN - 03/01/2016 11:52 CDT Source: [facility] [employer] Document Id: [id number] CDT!640 documented in this encounter Plan of Treatment Not on filedocumented as of this encounter Procedures Procedure Name Priority Date/Time Associated Diagnosis Comme nts PROTIME (PT/INR), Routine 03/01/2016 11:52 AM Res ults for this POCT, B CDT procedure are i n the results section. documented in this encounter Results (ABNORMAL) Protime/INR, POCT (03/01/2016 11:52 AM CDT) P athologist Signature INR, POCT, B 2.5 (H) 1 - 1 POWERCHART Specimen (Source) Anatomical Collection Method Collection Time Re ceived Time Location / / Volume Laterality 03/01/2016 11:52 AM CDT Marie Lance M.D. LAB POCT ORDERABLES - DEVICE Performing Organization Address City/State/ZIP Code Phon e Number POWERCHART documented in this encounter Visit Diagnoses Not on filedocumented in this encounter
--- OUTSIDE RECORDS SUMMARY | 2022-04-25 16:01 | XMS_ITS | Encounter Summary ---
:1975 Author Organization [facility] Address [address] [place] [address] Care Team Providers Name Role Phone Unavailable Primary Care Provider Unavailable Encounter Details Date Type Department Care Team Description 02/14/2016 Hospital Encounter HX NO MAPPING Vielka Zamudio P.A.-C., M.S. [address] [place], [place] [phone] (Wo rk) Social History Tobacco Use Types Packs/Day Years Used Date Smoking Tobacco: Never Assessed Sex Assigned at Date Recorded Not on file documented as of this encounter Last Filed Vital Signs Vital Sign Reading Time Taken Comments Blood Pressure 94/46 02/14/2016 1:44 PM CDT Pulse 79 02/14/2016 1:44 PM CDT Temperature - - Respiratory Rate - - Oxygen Saturation - - Inhaled Oxygen Concentration - - Weight - - Height 148 cm (4' 10.27) 02/14/2016 1:44 PM CDT Body Mass Index - - documented in this encounter Discharge Summaries Wali Becerra L.P.N. - 02/14/2016 2:58 PM CDT ED Depart Summary [facility] Emergency Department Clinical Discharge Summary PERSON INFORMATION Name DORITA SHEFFIELD Age 41 Years 1975 12:00 AM Sex Female Language Somali PCP TASHA HENRIQUEZ MD Marital Status Single Visit Id Visit Reason UC - Leg Pain or Swelling; leg pain Specialty [facility] Outpatient Med Service Urgent Care Referred by [facility] ED Discharge 02/14/2016 2:58 PM Tracking Id [id number] Checkout 02/14/2016 2:58 PM Checkin 02/14/2016 1:29 PM Acuity 4 -Less Urgent Dispo Type * Discharged to Home or Self Care Arrival 02/14/2016 1:29 PM Reg Status Complete LOS 000 01:29 Address: [address] [place] [address] [phone] Comment: PROVIDER INFORMATION Provider Role Provider Contact Time JEFF POWER LPN ED Nurse 02/14/16 13:43 VIELKA ZAMUDIO PA-C ED Provider 02/14/16 13:54 DIAGNOSIS Cellulitis Leg R Comment: PATIENT EDUCATION INFORMATION Instructions: CELLULITIS Follow up: With: Address: When: Return to Urgent Care Within As Needed Source: [facility] The 517 travel Document Id: [id number] Wali Becerra L.P.N. - 02/14/2016 2:58 PM CDT ED Discharge Instructions [facility] [address] [place] [address]. [place] [address] Name: DORITA SHEFFIELD Date of : 1975 12:00 AM Visit Date: 02/14/2016 1:29 PM [facility] Number: [id number] Address: [address] [place] [phone] Primary Care Provider: TASHA HENRIQUEZ MD IMPORTANT: [facility] [place] would like to thank you for allowing us to assist you with your healthcare needs. The following includes patient education materials and information regarding your injury/illness. Diagnosis: Cellulitis Leg R Follow-Up Instructions: With: Address: When: Return to Urgent Care Within As Needed Your Upcoming Appointments: Date Time Location Provider 02/25/2016 08:15 [facility] RN BURN Sujit TSANG, Lizzy Benavides Patient Education Materials: Cellulitis You have an infection of the skin known as cellulitis. This usually starts with a scrape, cut, insect bite, blister or other opening in the skin which becomes infected. This is a serious condition. It must be watched closely to be sure the infection is not spreading. With antibiotic treatment, the size of the red area will gradually shrink in size until the skin returns to normal. This will take 7-10 days. The red area should never increase in size once the antibiotic medicine has been started. Occasionally, an infection will be resistant to one antibiotic and another one will have to be used. Home Care: 1) Limit the use of the affected part, since excess movement can cause the infection to spread. 2) If the infection is on your leg, walk as little as possible during the first few days of the treatment. Keep your leg elevated while sitting. This will reduce swelling. 3) Take all of the antibiotic medicine exactly as directed until it is gone. Be careful not to miss any doses, especially during the first seven days. Follow Up with your doctor or this facility as directed. Check the infected area daily for the warning signs listed below. Get Prompt Medical Attention if any of the following occur: -- Spreading area of redness -- Increasing swelling or pain -- Appearance of pus or drainage -- Fever over 100.4? F (38.0? C) oral, or over 101.4? F (38.6 C) rectal, after two days on antibiotics ?? [id number] [facility], [address] [place] [address]. All rights reserved. This information is not [...] if you dont have one. Go to [email or web address] and click on Create Your Account. Then, follow the directions to complete the online form. Youll be asked for your [facility] number which you can find at the top of this document. ED Tests and Procedures: Order Status US Venous Doppler Lower Ext Right Ordered Discharge Prescriptions & Home Medications: Medication/Strength Dose Route Frequency Indications/Special Instructions/Comments/Notes cefTRIAXone (cefTRIAXone) 1 gm Intramuscular once doxycycline (doxycycline hyclate 100 mg oral tablet) 100 mg Oral two times a day for 7 Days warfarin (warfarin 5 mg oral tablet) See Instructions 5mg Mon, 2.5mg all other days or as directed by the INR Clinic as of 12/30/[place] [facility] [place] See Instructions Rx mouth wash - daily multivitamin (multivitamin) 1 tab Oral once a day fluoride topical (Prevident 5000 Plus topical paste) 1 luther Topical two times a day Comment: Attention: If you have any medications [...] arrange a ride home with a responsible libertarian. NETTIE Cha CAROLYN MARY , or responsible libertarian have received this information and my questions have been answered. I have discussed any challenges I see with this plan with the nurse or physician. Patient Signature or Responsible Constitution Party/Relationship Date Time Provider Signature Date Time [...] arrange a ride home with a responsible libertarian. I, DORITA SHEFFIELD , or responsible libertarian have received this information and my questions have been answered. I have discussed any challenges I see with this plan with the nurse or physician. Patient Signature or Responsible Constitution Party/Relationship Date Time Provider Signature Date Time Source: [facility] POWERCHART Document Id: [id number] documented in this encounter Medications at Time of Discharge Medication Sig Dispensed Refills Start Date End Date multivitamin tablet Take 2 tablets by 0 3 mouth daily. FLUORIDE, SODIUM, Apply 1 application 0 3 12/31/2019 DENTAL topically 2 (two) times a day. documented as of this encounter Progress Notes Vielka Zamudio P.A.-C. - 02/14/2016 1:29 PM CDT [id number] CHIEF COMPLAINT/REASON FOR VISIT Increased right lower leg pain, redness and swelling. HISTORY OF PRESENT ILLNESS Dorita is a 41-year-old female, who I evaluated yesterday for the aforementioned concerns. Her CBC and D-dimer yesterday were negative and the patient and the mother were to monitor the situation. Thepatient does present with father today with increased right lower extremity leg pain, swelling and re dness. No dyspnea on exertion or chest pain. Her INR was 2.0 yesterday. PHYSICAL EXAMINATION GENERAL: This is an alert and nontoxic-appearing 41-year-old female. EXTREMITIES: Examination of the distal right tibial area demonstrates increased erythema, redness and warmth since my evaluation yesterday. Again noted is hemosiderin staining to the bilateral lower extremities. RESULTS AND DATA The ultrasound is negative for acute DVT. IMPRESSION/REPORT/PLAN Right lower extremity cellulitis. PLAN: One gram of ceftriaxone was given in the office today and would like the patient to began doxycycline 2 times daily for 7 days starting tomorrow. The patient has siblings and caregivers that can look out for her starting tomorrow while [place]. Vielka Zamudio P.A.-C./erin Electronically Signed By: VIELKA ZAMUDIO PA-C On: 02/14/2016 06:58 PM Source: [facility] [id number] Document Id: [id number] documented in this encounter H&P Notes Jeff Power L.P.N. - 02/14/2016 1:44 PM CDT Urgent Care Intake Urgent Care Intake Entered On: 02/14/2016 13:48 CDT Performed On: 02/14/2016 13:44 CDT by EJFF POWER LPN Intake Chief Complaint : Right ankle, swollen , red and painful. Temperature Core : 37 DegC(Converted to: 98.6 DegF) Peripheral Pulse Rate : 79 /min Systolic Blood Pressure : 94 mmHg Diastolic Blood Pressure : 46 mmHg (<LLOW) NIBP Mean : 62 mmHg SpO2 : 99 % Height : 148 cm(Converted to: 4 ft 10 inch(es), 58 inch(es)) LINDSEY JEFF BASS - 02/14/2016 13:44 CDT General Info Information Given By : Patient Languages : Somali Is Patient Female and 13-50 no hysterectomy : Yes Status : Patient denies Are you ? : No JEFF POWER LPN - 02/14/2016 13:44 CDT Subjective Pain Symptoms : Yes JEFF POWER LPN - 02/14/2016 13:44 CDT Pain Scale Pain Scale Verbal 0-10 : Open JEFF POWER LPN - 02/14/2016 13:44 CDT Pain Pain Assessment Grid Pain 1 Location : Lower leg Laterality : Right Intensity : 5 JEFF POWER LPN - 02/14/2016 13:44 CDT Dependent Habits Exposure to Tobacco Smoke : Other: never smoker Smoking Status : Never smoker Tobacco 2A : No Tobacco Use/Currently Using : No Tobacco Use/Last 30 Days : No Tobacco Use/Last 12 months : No JEFF POWER LPN - 02/14/2016 13:44 CDT Caffeine Use Grid Caffeine Use : Current Type : Soft drinks Frequency : Occasionally Amount : pop JEFF POWER LPN - 02/14/2016 13:44 CDT Nutrition Nutrition Risk Factors by History Adult : None LINDSEY JEFF BASS - 02/14/2016 13:44 CDT Functional Current Daily Living Assistance : None JEFF POWER LPN - 02/14/2016 13:44 CDT Psychosocial Domestic Abuse Concerns : None Behavioral Health Screen/Safety Assmt : No [facility] Preference : No qualifying data available. JEFF POWER LPN - 02/14/2016 13:44 CDT Advance Directive Advanced Directives : No Advance Directive Additional Information : No JEFF POWER LPN - 02/14/2016 13:44 CDT Educ Needs Learning Style Preference Adult Grid Patient : None Family : None JEFF POWER LPN - 02/14/2016 13:44 CDT [facility] Intel[facility] Capital SolutionsCHART Document Id: [id number] CDT!54 documented in this encounter ED Notes Wali Becerra L.P.N. - 02/14/2016 2:58 PM CDT ED Disposition Summary ED Disposition Summary Entered On: 02/14/2016 14:58 CDT Performed On: 02/14/2016 14:58 CDT by WALI BECERRA LPN ED Disposition Summary Printed Discharge Instructions Given to Patient : Yes WALI BECERRA LPN - 02/14/2016 14:58 CDT Source: [facility] POWERCHART Document Id: [id number] CDT!3 Varun Krishnamurthy R.N. - 02/14/2016 1:30 PM CDT ED Triage Assessment Document Has Been Updated ED Triage Assessment Entered On: 02/14/2016 13:31 CDT Performed On: 02/14/2016 13:30 CDT by VARUN KRISHNAMURTHY RN Reason For Visit (As Of: 02/14/2016 13:31:31 CDT) Problems(Active) Atrioventricular canal (SNOMED CT :791010848 ) Name of Problem: Atrioventricular canal ; Onset Date:03/26/2013 ; Recorder: TOOTIE LOPEZ LPN; Confirmation: Confirmed ; Classification: Nursing ; Code: 488866295 ; Contributor System: [employer] ; Last Updated: 04/05/2013 10:22 CDT ; Life Cycle Date: 04/05/2013 ; 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: Active ; Responsible Provider: TOOTIE LOPEZ LPN; Vocabulary: SNOMED CT ; Comments: 04/05/2013 10:22 - TOOTIE LOPEZ LPN defect, transitional Cellulitis, NOS (ICD-9-CM :682.9 ) Name of Problem: Cellulitis, NOS ; Recorder: TOOTIE LOPEZ LPN; Confirmation: Confirmed ; Classification: Nursing ; Code: 682.9 ; Contributor System: [employer] GroupChart ;Last Updated: 04/05/2013 10:27 CDT ; Life [...] System: PowerChart ; 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 ; 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: 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 ; Responsible Provider: BELLA NULL MD; Vocabulary: ICD-9-CM Impaired Fasting Glucose (ICD-9-CM :790.21 ) Name of Problem: Impaired Fasting Glucose ; Onset Date:07/22/2010 ; Confirmation: Confirmed ; Classification: Medical ; Code: 790.21 ; Contributor System: PowerChart ; Last Updated: 06/06/2014 9:13 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 ; 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: Active ; Vocabulary: ICD-9-CM ; Co mments: - Impaired fasting glucose Irregular Menstrual Cycle (ICD-9-CM :626.4 ) Name of Problem: Irregular Menstrual Cycle ; Onset Date: 07/28/2010 ; Confirmation: Confirmed ; Classification: Medical ; Code: 626.4 ; Contributor System: [facility]_HX_[facility]_UPLOAD ; Last Updated: 09/21/2013 19:06 CDT ; 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: Active ; Vocabulary: ICD-9-CM ; Comments: - Irregular menses Mitral valve regurgitation NOS (ICD-9-CM :424.0 ) Name of Problem: Mitral valve regurgitation NOS ; Recorder: TOOTIE LOPEZ LPN; Confirmation: Confirmed ; Classification: Nursing ; Code: 424.0 ; Contributor System: [employer] ; Last Updated: 04/05/2013 10:25 CDT ; Life Cycle Date: 04/05/2013 ; 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: Active ; Responsible Provider: TOOTIE LOPEZ LPN; Vocabulary: ICD-9-CM ; Comments: 04/05/2013 10:25 - TOOTIE LOPEZ LPN unknown date of dx Mixed Hyperlipidemia (ICD-9-CM :272.2 ) Name of Problem: Mixed Hyperlipidemia ; Onset Date: 07/22/2010 ; Confirmation: Confirmed ; Classification: Medical ; Code: 272.2 ; Contributor System: [employer] GroupChart; Last Updated: 06/06/2014 9:13 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 ; 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: Active ; Vocabulary: [...] Merly Solomon ; Last Updated: 06/06/2014 9:13 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 ; 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: Active ; Vocabulary: ICD-9-CM ; Comments: - Phlebitis and thrombophlebitis of other deep vessels of lower extremities Primary Hypercoagulable State (ICD-9-CM :289.81 ) Name of Problem: Primary Hypercoagulable State ; Onset Date: 01/29/2008 ; Confirmation: Confirmed ; Classification: Medical ; Code: 289.81 ; Contributor System: [facility] ; Last Updated: 09/21/2013 19:06 CDT ; 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: Active ; Vocabulary: ICD-9-CM ; Comments: - Protein S deficiency With elevated d-dimer Dr. Anna Riley rec: lifelong coumadin Psoriasis (ICD-9-CM :696.1 ) Name of Problem: Psoriasis ; Recorder: TOOTIE LOPEZ LPN; Confirmation: Confirmed ; Classification: Nursing ; Code: 696.1 ; Contributor System: [employer] ; Last Updated: 04/05/2013 10:24 CDT ; [...] TOOTIE LOPEZ LPN unknown date of dx Diagnoses(Active) UC - Leg Pain or Swelling Date: 02/14/2016 ; Diagnosis Type: Reason For Visit ; Confirmation: Complaint of ; Clinical Dx: UC - Leg Pain or Swelling ; Classification: Medical ; Clinical Service: Emergency medicine ; Code: PNED ; Probability: 0 ; Diagnosis Code: [id number] Triage Chief Complaint Description : Right lower leg pain and swelling. HX of DVT. D dimmer was negative yesterday. She is having increased swelling, pain, and warmth. Information Given By : Patient Present in Room During Exam/Procedure : Father Mode of Arrival ED : Private vehicle, Ambulatory Track : Medical Languages : Somali Patient Informed of Triage Location : Urgent Care Treatments Prior to Arrival : Acetaminophen Are you ? : No Is Patient Female and 13-50 no hysterectomy : Yes Status : Patient denies VARUN KRISHNAMURTHY RN - 02/14/2016 13:30 CDT Pain Assessment Pain Symptoms : Yes VARUN KRISHNAMURTHY RN - 02/14/2016 13:30 CDT ИРИНА DCP GENERIC CODE Tracking Acuity : 4 -Less Urgent Tracking Group : [facility]W ED VARUN KRISHNAMURTHY RN - 02/14/2016 13:30 CDT Source: [employer] Document Id: [id number] CDT!19 documented in this encounter Plan of Treatment Not on filedocumented as of this encounter Visit Diagnoses Not on filedocumented in this encounter
--- OUTSIDE RECORDS SUMMARY | 2022-04-25 16:01 | XMS_ITS | Encounter Summary ---
:1975 Author Organization [facility] Address [address] [place] [address] Care Team Providers Name Role Phone Unavailable Primary Care Provider Unavailable Encounter Details Date Type Department Care Team Description 03/07/2016 Hospital Encounter [facility] Andrea Whipple M.D. [address] [place], [place] [address] (Wo rk) Social History [...] - - Height 148 cm (4' 10.27) 03/07/2016 10:15 AM CDT Body Mass Index - - [...] 30 tab(s) documented as of this encounter Procedure Notes Conversion, Historical Provider Ser - 03/07/2016 10:32 AM CDT Protime/INR Point of Care Protime/INR Point of Care Entered On: 03/07/2016 10:35 CDT Performed On: 03/07/2016 10:32 CDT by NICHOLE BOWERS RN Protime/INR Point of Care INR goal range : 2.0 - 3.0 Duration of Therapy : Lifelong INR POC Results : 2.4 (HI) Instrument Number : [id number] Internal QC : Pass Cuvette Lot Number : [id number] Cuvette Expiration Date : 05/25/2016 BUSINESS STRATEGIST Comment : see intake form Total Weekly Warfarin Dose : 15.5 NICHOLE BOWERS RN - 03/07/2016 10:32 CDT Source: [employer] Document Id: [id number] CDT!11 documented in this encounter Miscellaneous Notes Miscellaneous - Hanna Truong, RMichaelNMichael - 03/16/2016 3:55 PM CDT Anticoagulation Patient Intake Anticoagulation Patient Intake Entered On: 03/16/2016 15:57 CDT Performed On: 03/16/2016 15:55 CDT by HANNA TRUONG RN Plan INR goal range : 2.0 - 3.0 Duration of Therapy : Lifelong Tablet Size : 2 mg, 5 mg HANNA TRUONG RN - 03/16/2016 15:55 CDT Anticoagulation Management Plan Grid Date : [...] completed by : HANNA Ann RN - 03/16/2016 15:55 CDT HANNA TRUONG RN - 03/16/2016 15:55 CDT HANNA TRUONG RN - 03/16/2016 15:55 CDT HANNA TRUONG RN - 03/16/2016 15:55 CDT Date : 12/26/2013 CDT 01/30/2014 CDT [...] completed by : HANNA Eubanks RN - 03/16/2016 15:55 CDT HANNA TRUONG RN - 03/16/2016 15:55 CDT HANNA TRUONG RN - 03/16/2016 15:55 CDT HANNA TRUONG RN - 03/16/2016 15:55 CDT Date : 03/20/2014 CDT 03/27/2014 CDT [...] lackey LM /pharmacy HANNA TRUONG RN - 03/16/2016 15:55 CDT HANNA TRUONG RN - 03/16/2016 15:55 CDT HANNA TRUONG RN - 03/16/2016 15:55 CDT HANNA TRUONG RN - 03/16/2016 15:55 CDT Date : 04/17/2014 CDT 04/24/2014 CDT 05/01/2014 BUSINESS STRATEGIST 05/15/2014 BUSINESS STRATEGIST Location of INR sample : Lab Lab [...] will trynoted dose called to mom Fabiola [phone] called to Fabiola/no changes Called to mother/Fabiola, not awareof any changes Recommend Recheck : One week One week Two weeks Two weeks Plan completed by : HANNA CLAY RN - 03/16/2016 15:55 CDT HANNA TRUONG RN - 03/16/2016 15:55 CDT HANNA TRUONG RN - 03/16/2016 15:55 CDT HANNA TRUONG RN - 03/16/2016 15:55 CDT Date : 06/03/2014 BUSINESS STRATEGIST 06/05/2014 BUSINESS STRATEGIST 06/10/2014 BUSINESS STRATEGIST 06/11/2014 BUSINESS STRATEGIST Location of INR sample : Lab Type [...] Called motherFabiola. Dorita will be staying in [place] 2wks post-surgery & have INR drawn there. [...] lovenox tomorrow AM as ordered. INR in [place] for next several weeks as pt will be recovering there. Recommend Recheck : Other: depending on Dr. Henriquez's preop. Other: 06/18 Other: 06/13/14 Plan completed by : HANNA MARTIN RN - 03/16/2016 15:55 CDT HANNA TRUONG RN - 03/16/2016 15:55 CDT HANNA TRUONG RN - 03/16/2016 15:55 CDT HANNA TRUONG RN - 03/16/2016 15:55 CDT Date : 06/14/2014 BUSINESS STRATEGIST 06/14/2014 BUSINESS STRATEGIST 06/16/2014 BUSINESS STRATEGIST 06/23/2014 BUSINESS STRATEGIST Location of INR sample : Clinic Lab Lab Type of Sample : Venous Venous INR Result : 1.3 on 06/13 2.4 faxed from lab 2.0 Warfarin Dose : (pt took 2.5mg 06/13) 5mg Sat and 5mg Sun (06/14 and 06/15) 5mg Mon and 2.5mg all other days 5mg Mon and 2.5mg all other days Total Weekly Warfarin Dose : 20 20 Comment : [place] jenniffer called with INR result from 06/13, reported they left a message with Dr. Henriquez and hadn't heard back, spoke with mother, Fabiola, and gave doses, continue Lovenox and repeat INR 06/16, message left with INR clinic in to contact CF Please contact [place] lab on 06/16 for result and may call Fabiola at [phone] with instructions call to Fabiola/will stop Lovenox injections and take noted dose/pt has an appt here in [place] 06/23 so will do lab appt here that day Called to Fabiola/ Dorita will be back at [facility] by next draw. will have done on . no changes to meds/diet. Recommend Recheck : Two days One week Two weeks Plan completed by : HANNA Neri LM RN - 03/16/2016 15:55 CDT HANNA TRUONG RN - 03/16/2016 15:55 CDT HANNA TRUONG RN - 03/16/2016 15:55 CDT HANNA TRUONG RN - 03/16/2016 15:55 CDT Date : 07/10/2014 BUSINESS STRATEGIST 07/17/2014 BUSINESS STRATEGIST 07/31/2014 BUSINESS STRATEGIST 09/11/2014 CDT Location of INR sample : [...] completed by : HANNA Krishnan RN - 03/16/2016 15:55 CDT HANNA TRUONG RN - 03/16/2016 15:55 CDT HANNA TRUONG RN - 03/16/2016 15:55 CDT HANNA TRUONG RN - 03/16/2016 15:55 CDT Date : 09/12/2014 CDT 09/25/2014 CDT [...] completed by : HANNA Santos RN - 03/16/2016 15:55 CDT HANNA TRUONG RN - 03/16/2016 15:55 CDT HANNA TRUONG RN - 03/16/2016 15:55 CDT HANNA TRUONG RN - 03/16/2016 15:55 CDT Date : 10/23/2014 CDT 11/13/2014 CDT [...] change is she is exercising alot for [employer]/no bleeding/consult with Quintin/Pharmacy and called Mom with orders Per Meredith Hernandez, no changes, has been drinking some Kiwi Juice, no bleeding/consult with Quintin/Pharmacy Called to castro /Fabiola, no changes, rev'd w/BCarlson/Pharmacy Recommend Recheck : Three weeks One week One week One week Plan completed by : HANNA Cottrell RN - 03/16/2016 15:55 CDT HANNA TRUONG RN - 03/16/2016 15:55 CDT HANNA TRUONG RN - 03/16/2016 15:55 CDT HANNA TRUONG RN - 03/16/2016 15:55 CDT Date : 12/04/2014 CDT 12/18/2014 CDT [...] 20 22.5 22.5 Comment : called to Castro/Fabiola/no changes or bleeding concerns LM on Fabiola's identified VM/to call ifchanges,questions or concerns Period this past wk & took Midol per castro/Fabiola, no Lovenox per Dr Henriquez, rev'd dose w/LZorn/Pharmacy Called to castro/Fabiola, no changes Recommend Recheck : Two weeks Three weeks One week Two weeks Plan completed by : HANNA Healy RN - 03/16/2016 15:55 CDT HANNA TRUONG RN - 03/16/2016 15:55 CDT HANNA TRUONG RN - 03/16/2016 15:55 CDT HANNA TRUONG RN - 03/16/2016 15:55 CDT Date : 02/05/2015 CDT 02/26/2015 CDT [...] completed by : HANNA PÉREZ RN - 03/16/2016 15:55 CDT HANNA TRUONG RN - 03/16/2016 15:55 CDT HANNA TRUONG RN - 03/16/2016 15:55 CDT HANNA TRUONG RN - 03/16/2016 15:55 CDT Date : 04/09/2015 CDT 05/07/2015 BUSINESS STRATEGIST 06/04/2015 BUSINESS STRATEGIST 07/02/2015 BUSINESS STRATEGIST Location of INR sample : Lab Lab [...] completed by : HANNA Masters RN - 03/16/2016 15:55 CDT HANNA TRUONG RN - 03/16/2016 15:55 CDT HANNA TRUONG RN - 03/16/2016 15:55 CDT HANNA TRUONG RN - 03/16/2016 15:55 CDT Date : 08/06/2015 BUSINESS STRATEGIST 09/17/2015 CDT 10/29/2015 CDT 11/12/2015 CDT Location [...] completed by : HANNA Frazier RN - 03/16/2016 15:55 CDT HANNA TRUONG RN - 03/16/2016 15:55 CDT HANNA TRUONG RN - 03/16/2016 15:55 CDT HANNA TRUONG RN - 03/16/2016 15:55 CDT Date : 11/19/2015 CDT 12/03/2015 CDT [...] completed by : HANNA Johnson RN - 03/16/2016 15:55 CDT HANNA TRUONG RN - 03/16/2016 15:55 CDT HANNA TRUONG RN - 03/16/2016 15:55 CDT HANNA TRUONG RN - 03/16/2016 15:55 CDT Date : 02/19/2016 CDT 02/20/2016 CDT 02/21/2016 CDT 02/22/2016 CDT Location of INR sample : [facility] Type of Sample : [...] Brizuela, Pharm.D. BAUDILIO, PharmD Eliseo Quezada, PharmD. HANNA TRUONG RN - 03/16/2016 15:55 CDT HANNA TRUONG RN - 03/16/2016 15:55 CDT HANNA TRUONG RN - 03/16/2016 15:55 CDT HANNA TRUONG RN - 03/16/2016 15:55 CDT Date : 02/23/2016 CDT 02/24/2016 CDT 02/25/2016 CDT 02/26/2016 CDT Location of INR sample : [facility] Type of Sample : Venous Venous [...] PharmD. Tyshawn Brizuela, Pharm.D. Eliseo Quezada, PharmD. HANNA TRUONG RN - 03/16/2016 15:55 CDT HANNA TRUONG RN - 03/16/2016 15:55 CDT HANNA TRUONG RN - 03/16/2016 15:55 CDT HANNA TRUONG RN - 03/16/2016 15:55 CDT Date : 02/27/2016 CDT 03/01/2016 CDT [...] Pt mother states plan to return to [facility] on 03/06. next f/u will be in [facility]. 2mg TuWTh Rev'd with Jelly/Pharmacist,called to [...] Plan completed by : HANNA Chung RN, RN RN - 03/16/2016 15:55 CDT HANNA TRUONG RN - 03/16/2016 15:55 CDT HANNA TRUONG RN - 03/16/2016 15:55 CDT HANNA TRUONG RN - 03/16/2016 15:55 CDT Date : 03/11/2016 CDT 03/16/2016 CDT Location of INR sample : Lab Lab Type of Sample : Venous Venous INR Result : 2.2 2.4 Warfarin Dose : 2.5mg daily 2.5mg daily Total Weekly Warfarin Dose : 17.5 Comment : INR drawn in [place] faxed to us,called to mom/Fabiola,no changes pt will be staying with sister in [facility] next week she will have INR drawn in [place] again called to Fabiola/pt to do next INR at on a ./no changes Recommend Recheck : Other: 03/16/16 Other: 03/31/16(2 weeks) Plan completed by : HANNA DODSON RN - 03/16/2016 15:55 CDT HANNA TRUONG RN - 03/16/2016 15:55 CDT Anticoagulation Assessment / History Visit : Phone management Plan of Care Date : 01/29/2008 CDT Primary Physician Anticoagulation : TASHA HENRIQUEZ MD 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 - 03/07/2016 11:45 AM CDT Custom Result Letter March 07, 2016 DORITA SHEFFIELD [address] [facility] [id number] Dear DORITA SHEFFIELD, Dear Colleague, Our patient, Dorita Sheffield, 73 is currently away from the [place], [place] area and remains on Warfarin (Coumadin) therapy for DVT, diagnosis code I82.409. INR monitoring is required to continue the consistent management of our patient. Please draw an INR on a PRN basis and fax the results to: [facility] [place] [address] Fax: Phone: Thank You for your cooperation. [facility] staff: Antonia Mcclellan, RN;Antonia Gifford, RN; Hanna Truong, RN; Meli Campo, RN; Love Medina, RN Provider signature: Tasha Henriquez MD Sincerely, MELI CAMPO Electronic Signature Electronically Signed By: MELI CAMPO RN On: March 07, 2016 This document has images extracted. Source: [facility] [employer] Document Id: [id number] Electronically signed by Conversion, [facility] Systems Integration Engineer [id number] at 11/20/2016 5:43 AM CDT Miscellaneous - Conversion, Historical Provider Ser - 03/07/2016 10:42 AM CDT INR management Document Contains Addenda Addendum by NICHOLE BOWERS RN on March 07, 2016 15:15:08 CDT From: NICHOLE BOWERS RN To: Anticoagulation Nurse; Sent: 03/07/2016 15:15:08 CDT Subject: RE: INR management Thank you! Addendum by MELI CAMPO RN on March 07, 2016 15:01:49 CDT From: MELI CAMPO RN ( Anticoagulation Nurse) To: NICHOLE BOWERS RN; Sent: 03/07/2016 15:01:49 CDT Subject: RE: INR management Addendum by MELI CAMPO RN on March 07, 2016 15:01:41 CDT order faxed. Thank you From: NICHOLE BOWERS RN To: NICHOLE BOWERS RN; Anticoagulation Nurse; Sent: 03/07/2016 10:42:37 CDT Subject: INR management Pt here today for f/u INR. INR 2.4. I kept her on 2.5mg daily. Please advise pt if you would like alternative to dosage. Pt has requested to have lab draws for this and managed by your ACC in [place]. Can you fax an order for lab draws here to [facility] lab. Thanks! Nichole Source: [employer] Document Id: [id number] Miscellaneous - Conversion, Historical Provider Ser - 03/07/2016 10:17 AM CDT Anticoagulation Patient Intake Anticoagulation Patient Intake Entered On: 03/07/2016 10:19 CDT Performed On: 03/07/2016 10:17 CDT by NICHOLE BOWERS RN Plan INR goal range : 2.0 - 3.0 Duration of Therapy : Lifelong Tablet Size : 2 mg, 5 mg NICHOLE BOWERS RN - 03/07/2016 10:17 CDT NICHOLE BOWERS RN - 03/07/2016 10:17 CDT Anticoagulation Management Plan Grid Date [...] weeks Two weeks Plan completed by : NICHOLE Mccormack RN - 03/07/2016 10:17 CDT NICHOLE BOWERS RN - 03/07/2016 10:17 CDT NICHOLE BOWERS RN - 03/07/2016 10:17 CDT NICHOLE BOWERS RN - 03/07/2016 10:17 CDT Date : 12/26/2013 CDT 01/30/2014 [...] a long time, no bleeding now left [facility] for Fabiola,call if changes Recommend Recheck : Other: 5 weeks Other: 5 weeks Other: 03/10/2014 Other: 03/20/14 Plan completed by : NICHOLE Tate RN - 03/07/2016 10:17 CDT NICHOLE BOWERS RN - 03/07/2016 10:17 CDT NICHOLE BOWERS RN - 03/07/2016 10:17 CDT NICHOLE BOWERS RN - 03/07/2016 10:17 CDT Date : 03/20/2014 CDT 03/27/2014 [...] try dec as noted Called to mom, noccoco to meds has been drinking grape juice. no bleeding. no vitamin K per Dr. Duarte. dose consultwith Agatha Hopkins/Pharmacy. instructed to be seen if bleeding occurs. called mom, Recommend Recheck : One week Two weeks Two days One day, Other: Plan completed by : darya lackey LM /pharmacy NICHOLE BOWERS RN - 03/07/2016 10:17 CDT NICHOLE BOWERS RN - 03/07/2016 10:17 CDT NICHOLE BOWERS RN - 03/07/2016 10:17 CDT NICHOLE BOWERS RN - 03/07/2016 10:17 CDT Date : 04/17/2014 CDT 04/24/2014 CDT 05/01/2014 BUSINESS STRATEGIST 05/15/2014 BUSINESS STRATEGIST Location of INR sample : Lab Lab [...] will trynoted dose called to mom Fabiola [phone] called to Fabiola/no changes Called to mother/Fabiola, not awareof any changes Recommend Recheck : One week One week Two weeks Two weeks Plan completed by : NICHOLE HARRY RN - 03/07/2016 10:17 CDT NICHOLE BOWERS RN - 03/07/2016 10:17 CDT NICHOLE BOWERS RN - 03/07/2016 10:17 CDT NICHOLE BOWERS RN - 03/07/2016 10:17 CDT Date : 06/03/2014 BUSINESS STRATEGIST 06/05/2014 BUSINESS STRATEGIST 06/10/2014 BUSINESS STRATEGIST 06/11/2014 BUSINESS STRATEGIST Location of INR sample : Lab Type [...] Called motherFabiola. Dorita will be staying in [place] 2wks post-surgery & have INR drawn there. [...] lovenox tomorrow AM as ordered. INR in [place] for next several weeks as pt will be recovering there. Recommend Recheck : Other: depending on Dr. Henriquez's preop. Other: 06/18 Other: 06/13/14 Plan completed by : NICHOLE ALEJANDRO RN - 03/07/2016 10:17 NICHOLE CARBAJAL RN - 03/07/2016 10:17 NICHOLE CARBAJAL RN - 03/07/2016 10:17 NICHOLE CARBAJAL RN - 03/07/2016 10:17 CDT Date : 06/14/2014 BUSINESS STRATEGIST 06/14/2014 BUSINESS STRATEGIST 06/16/2014 BUSINESS STRATEGIST 06/23/2014 BUSINESS STRATEGIST Location of INR sample : Clinic Lab Lab Type of Sample : Venous Venous INR Result : 1.3 on 06/13 2.4 faxed from lab 2.0 Warfarin Dose : (pt took 2.5mg 06/13) 5mg Sat and 5mg Sun (06/14 and 06/15) 5mg Mon and 2.5mg all other days 5mg Mon and 2.5mg all other days Total Weekly Warfarin Dose : 20 20 Comment : [place] lab called with INR result from 06/13, reported they left a message with Dr. Henriquez and hadn't heard back, spoke with mother, Fabiola, and gave doses, continue Lovenox and repeat INR 06/16, message left with INR clinic in to contact CF Please contact [facility] on 06/16 for result and may call Fabiola at [phone] with instructions call to Fabiola/will stop Lovenox injections and take noted dose/pt has an appt here in [place] 06/23 so will do lab appt here that day Called to Fabiola/ Dorita will be back at [facility] by next draw. will have done on . no changes to meds/diet. Recommend Recheck : Two days One week Two weeks Plan completed by : NICHOLE Carrion LM RN - 03/07/2016 10:17 CDT NICHOLE BOWERS RN - 03/07/2016 10:17 CDT NICHOLE BOWERS RN - 03/07/2016 10:17 CDT NICHOLE BOWERS RN - 03/07/2016 10:17 CDT Date : 07/10/2014 BUSINESS STRATEGIST 07/17/2014 BUSINESS STRATEGIST 07/31/2014 BUSINESS STRATEGIST 09/11/2014 CDT Location of INR sample : [...] weeks Two weeks Plan completed by : NICHOLE Bell RN - 03/07/2016 10:17 CDT NICHOLE BOWERS RN - 03/07/2016 10:17 CDT NICHOLE BOWERS RN - 03/07/2016 10:17 CDT NICHOLE BOWERS RN - 03/07/2016 10:17 CDT Date : 09/12/2014 CDT 09/25/2014 [...] week Two weeks Plan completed by : NICHOLE Norwood RN - 03/07/2016 10:17 CDT NICHOLE BOWERS RN - 03/07/2016 10:17 CDT NICHOLE BOWERS RN - 03/07/2016 10:17 CDT NICHOLE BOWERS RN - 03/07/2016 10:17 CDT Date : 10/23/2014 CDT 11/13/2014 [...] is she is 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 [employer]/no bleeding/consult with Quintin/Pharmacy and called Mom with orders Per Meredith Hernandez, no changes, has been drinking some Kiwi Juice, no bleeding/consult with Quintin/Pharmacy Called to mom /Fabiola, no changes, rev'd w/BCarlson/Pharmacy Recommend Recheck : Three weeks One week One week One week Plan completed by : NICHOLE Sawyer RN - 03/07/2016 10:17 CDT NICHOLE BOWERS RN - 03/07/2016 10:17 CDT NICHOLE BOWERS RN - 03/07/2016 10:17 CDT NICHOLE BOWERS RN - 03/07/2016 10:17 CDT Date : 12/04/2014 CDT 12/18/2014 [...] this past wk & took Midol per castro/Fabiola, no Lovenox per Dr Henriquez, rev'd dose w/LZorn/Pharmacy Called to mom/Fabiola, no changes Recommend Recheck : Two weeks Three weeks One week Two weeks Plan completed by : NICHOLE Kwon RN - 03/07/2016 10:17 CDT NICHOLE BOWERS RN - 03/07/2016 10:17 CDT NICHOLE BOWERS RN - 03/07/2016 10:17 CDT NICHOLE BOWERS RN - 03/07/2016 10:17 CDT Date : 02/05/2015 CDT 02/26/2015 [...] weeks Three weeks Plan completed by : NICHOLE MUÑIZ RN - 03/07/2016 10:17 CDT NICHOLE BOWERS RN - 03/07/2016 10:17 T NICHOLE BOWERS RN - 03/07/2016 10:17 CDT NICHOLE BOWERS RN - 03/07/2016 10:17 CDT Date : 04/09/2015 CDT 05/07/2015 BUSINESS STRATEGIST 06/04/2015 BUSINESS STRATEGIST 07/02/2015 BUSINESS STRATEGIST Location of INR sample : Lab Lab [...] Other: 5 weeks Plan completed by : NICHOLE Blanca RN - 03/07/2016 10:17 CDT NICHOLE BOWERS RN - 03/07/2016 10:17 CDT NICHOLE BOWERS RN - 03/07/2016 10:17 CDT NICHOLE BOWERS RN - 03/07/2016 10:17 CDT Date : 08/06/2015 BUSINESS STRATEGIST 09/17/2015 CDT 10/29/2015 CDT 11/12/2015 CDT Location [...] weeks One week Plan completed by : NICHOLE Priest RN - 03/07/2016 10:17 CDT NICHOLE BOWERS RN - 03/07/2016 10:17 CDT NICHOLE BOWERS RN - 03/07/2016 10:17 PATRICIAT NICHOLE BOWERS RN - 03/07/2016 10:17 CDT Date : 11/19/2015 CDT 12/03/2015 [...] month One month Plan completed by : NICHOLE Bernardo RN - 03/07/2016 10:17 CDT NICHOLE BOWERS RN - 03/07/2016 10:17 CDT NICHOLE BOWERS RN - 03/07/2016 10:17 CDT NICHOLE BOWERS RN - 03/07/2016 10:17 CDT Date : 02/19/2016 CDT 02/20/2016 CDT 02/21/2016 CDT 02/22/2016 CDT Location of INR sample : [facility] Type of Sample : [...] Brizuela, Pharm.D. Tyshawn Brizuela, Pharm.D. BAUDILIO, PharmD Rea LeonD. NICHOLE BOWERS RN - 03/07/2016 10:17 CDT NICHOLE BOWERS RN - 03/07/2016 10:17 CDT NICHOLE BOWERS RN - 03/07/2016 10:17 CDT NICHOLE BOWERS RN - 03/07/2016 10:17 CDT Date : 02/23/2016 CDT 02/24/2016 [...] PharmD. Tyshawn Brizuela, Pharm.D. Eliseo Quezada, PharmD. NICHOLE BOWERS RN - 03/07/2016 10:17 CDT NICHOLE BOWERS RN - 03/07/2016 10:17 CDT NICHOLE BOWERS RN - 03/07/2016 10:17 CDT NICHOLE BOWERS RN - 03/07/2016 10:17 CDT Date : 02/27/2016 CDT 03/01/2016 [...] Pt mother states plan to return to [facility] on 03/06. [place] 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 : DVT Lower, Other: Deep Phlebitis-Leg NEC CHADS2 Score Date : 09/05/2013 CDT NICHOLE BOWERS RN - 03/07/2016 10:25 CDT Changes / Problems Changes/Problems Since Last Visit : None Been Scheduled For : None Missed Coumadin Doses : None Change In Intake : None Change In Medication : None Have You Had : None Plans to Travel : No NICHOLE BOWERS RN - 03/07/2016 10:25 CDT Education Reg STK Discharge Info Anticoag Specific : Anticoagulation follow-up monitoring of warfarin post-discharge NICHOLE BOWERS RN - 03/07/2016 10:25 CDT Source: [employer] Document Id: [id number] CDT!659 Miscellaneous - Conversion, Historical Provider Ser - 03/07/2016 9:34 AM CDT hx of DVT needs ACC order. Document Contains Addenda Addendum by MARIE LANCE MD on March 07, 2016 10:18:10 CDT From: MARIE LANCE MD Sent: 03/07/2016 10:18:10 CDT Subject: RE:hx of DVT needs ACC order. Approved Order:Anticoagulation Clinic Order Details: 03/07/2016 10:18 CDT, 03/30/2016 9:32 CDT, 2 - 3, g. Lifelong, DVT, lower extremity, [facility] Anticoag Signed by MARIE LANCE MD 03/07/2016 10:18:09 From: NICHOLE BOWERS RN To: MARIE LANCE MD; Sent: 03/07/2016 09:34:41 CDT Subject: hx of DVT needs ACC order. On hold pending signature Order:Anticoagulation Clinic Order Details: 03/07/2016 9:32 CDT, 03/30/2016 9:32 CDT, 2 - 3, g. 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 she s temporarily staying with family in [facility], would like management in our ACC during this time. Was inpatient recently. Does have ACC order from but need one for in house ACC. Source: [facility] [employer]OWERCHART Document Id: [id number] documented in this encounter Plan of Treatment Not on filedocumented as of this encounter Procedures Procedure Name Priority Date/Time Associated Diagnosis Comme nts PROTIME (PT/INR), Routine 03/07/2016 10:32 AM Res ults for this POCT, B CDT procedure are i n the results section. documented in this encounter Results (ABNORMAL) Protime/INR, POCT (03/07/2016 10:32 AM CDT) P athologist Signature INR, POCT, B 2.4 (H) 1 - 1 POWERCHART Specimen (Source) Anatomical Collection Method Collection Time Re ceived Time Location / / Volume Laterality 03/07/2016 10:32 AM CDT Marie Lance M.D. LAB POCT ORDERABLES - DEVICE Performing Organization Address City/State/ZIP Code Phon e Number POWERCHART documented in this encounter Visit Diagnoses Not on filedocumented in this encounter
--- OUTSIDE RECORDS SUMMARY | 2022-04-25 16:01 | XMS_ITS | Encounter Summary ---
:1975 Author Organization [facility] Address [address] [place] [id number] Care Team Providers Name Role Phone Unavailable Primary Care Provider Unavailable Encounter Details Date Type Department Care Team Description 03/16/2016 Hospital Encounter HX [facility] Renetta Cabral M.D. [address] [place] [address] [place] [address] (Wo rk) Social History Tobacco Use [...] - - Height 148 cm (4' 10.27) 03/16/2016 10:24 AM CDT Body Mass Index - - [...] Date/Time Associated Comments Diagnosis PROTHROMBIN TIME Routine 03/16/2016 10:29 Results for this (PT), P AM CDT procedure are i n the results section. documented in this encounter Results (ABNORMAL) PT (Prothrombin Time) with INR (03/16/2016 10:29 AM CDT) [facility] Method Time Signature Prothrombin 27.3 (H) 8.8 [...] Time Location / / Volume Laterality Blood 03/16/2016 10:29 AM CDT Sridhar Garibay M.D. LAB BLOOD ADD-ON Performing Organization Address City/State/ZIP Code Phon e Number POWERCHART documented in this encounter Visit Diagnoses Not on filedocumented in this encounter
--- OUTSIDE RECORDS SUMMARY | 2022-04-25 16:01 | XMS_ITS | Encounter Summary ---
:1975 Author Organization [facility] Address [address] [place] [id number] Care Team Providers Name Role Phone Unavailable Primary Care Provider Unavailable Encounter Details Date Type Department Care Team Description 03/04/2016 Hospital Encounter HX [facility] Marsha Henriquez M.D. [address] [place], [place] [address] (Wo rk) Social History [...] Notes Miscellaneous - Meli Campo R.N. - 03/04/2016 4:28 PM CDT Anticoagulation Patient Intake Anticoagulation Patient Intake Entered On: 03/04/2016 16:30 CDT Performed On: 03/04/2016 16:28 CDT by MELI CAMPO RN Plan INR goal range : 2.0 - 3.0 Duration of Therapy : Lifelong Tablet Size : 2 mg, 5 mg MELI CAMPO RN - 03/04/2016 16:28 CDT Anticoagulation Management Plan Grid Date : [...] Two weeks Plan completed by : darya NB JM MELI Carroll RN - 03/04/2016 16:28 CDT MELI CAMPO RN - 03/04/2016 16:28 CDT MELI CAMPO - 03/04/2016 16:28 CDT MELI CAMPO RN - 03/04/2016 16:28 CDT Date : 12/26/2013 CDT 01/30/2014 CDT [...] completed by : MELI Pradhan RN - 03/04/2016 16:28 CDT MELI CAMPO RN - 03/04/2016 16:28 CDT MELI CAMPO - 03/04/2016 16:28 CDT MELI CAMPO RN - 03/04/2016 16:28 CDT Date : 03/20/2014 CDT 03/27/2014 CDT [...] Other: Plan completed by : darya lackey [facility]pharm[facility] MELI CAMPO RN - 03/04/2016 16:28 CDT MELI CAMPO RN - 03/04/2016 16:28 CDT MELI CAMPO - 03/04/2016 16:28 CDT MELI CAMPO RN - 03/04/2016 16:28 CDT Date : 04/17/2014 CDT 04/24/2014 CDT 05/01/2014 ACCOUNTING ANALYST 05/15/2014 ACCOUNTING ANALYST Location of INR sample : Lab [...] will trynoted dose called to mom Fabiola [phone] called to Fabiola/no changes Called to mother/Fabiola, not awareof any changes Recommend Recheck : One week One week Two weeks Two weeks Plan completed by : MARIA GUADALUPE PRECIADO MELI CAMPO RN - 03/04/2016 16:28 CDT MELI CAMPO RN - 03/04/2016 16:28 CDT MELI CAMPO LRN - 03/04/2016 16:28 CDT MELI CAMPO RN - 03/04/2016 16:28 CDT Date : 06/03/2014 ACCOUNTING ANALYST 06/05/2014 ACCOUNTING ANALYST 06/10/2014 ACCOUNTING ANALYST 06/11/2014 ACCOUNTING ANALYST Location of INR sample : Lab [...] Fabiola granados. Hue will be staying in [place] 2wks post-surgery & have INR drawn there. [...] lovenox tomorrow AM as ordered. INR in [place] for next several weeks as pt will be recovering there. Recommend Recheck : Other: depending on Dr. Henriquez's preop. Other: 06/18 Other: 06/13/14 Plan completed by : MELI ROSADO RN - 03/04/2016 16:28 CDT MELI CAMPO RN - 03/04/2016 16:28 CDT MELI CAMPON - 03/04/2016 16:28 CDT MELI CAMPO RN - 03/04/2016 16:28 CDT Date : 06/14/2014 ACCOUNTING ANALYST 06/14/2014 ACCOUNTING ANALYST 06/16/2014 ACCOUNTING ANALYST 06/23/2014 ACCOUNTING ANALYST Location of INR sample : Clinic [...] Warfarin Dose : 20 20 Comment : [place] lab called with INR result from 06/13, reported they left a message with Dr. Henriquez and hadn't heard back, spoke with mother, Fabiola, and gave doses, continue Lovenox and repeat INR 06/16, message left with INR clinic in to contact [facility] Please contact [place] lab on 06/16 for result and may call Fabiola at [phone] with instructions call to Fabiola/will stop Lovenox injections and take noted dose/pt has an appt here in [place] 06/23 so will do lab appt here that day Called to Fabiola/ Hue will be back at [facility] by next draw. will have done on Thurs. no changes to meds/diet. Recommend Recheck : Two days One week Two weeks Plan completed by : MELI Vazquez LM RN - 03/04/2016 16:28 CDT MELI CAMPO RN - 03/04/2016 16:28 CDT MELI CAMPO - 03/04/2016 16:28 CDT MELI CAMPO RN - 03/04/2016 16:28 CDT Date : 07/10/2014 ACCOUNTING ANALYST 07/17/2014 ACCOUNTING ANALYST 07/31/2014 ACCOUNTING ANALYST 09/11/2014 CDT Location of INR sample [...] Plan completed by : darya WYLIE ly MELI DEUTSCH RN - 03/04/2016 16:28 CDT MELI CAMPO RN - 03/04/2016 16:28 CDT MELI CAMPO - 03/04/2016 16:28 CDT MELI CAMPO RN - 03/04/2016 16:28 CDT Date : 09/12/2014 CDT 09/25/2014 CDT [...] completed by : MELI Owen RN - 03/04/2016 16:28 CDT MELI CAMPO RN - 03/04/2016 16:28 CDT MELI CAMPO - 03/04/2016 16:28 CDT MELI CAMPO RN - 03/04/2016 16:28 CDT Date : 10/23/2014 CDT 11/13/2014 CDT [...] completed by : MELI Bailey RN - 03/04/2016 16:28 CDT MELI CAMPO RN - 03/04/2016 16:28 CDT MELI CAMPO - 03/04/2016 16:28 CDT MELI CAMPO RN - 03/04/2016 16:28 CDT Date : 12/04/2014 CDT 12/18/2014 CDT [...] completed by : MELI Shirley RN - 03/04/2016 16:28 CDT MELI CAMPO RN - 03/04/2016 16:28 CDT MELI CAMPO LRN - 03/04/2016 16:28 CDT MELI CAMPO RN - 03/04/2016 16:28 CDT Date : 02/05/2015 CDT 02/26/2015 CDT [...] weeks Three weeks Plan completed by : NATALIIA CAMPOSANTONI Simmons RN - 03/04/2016 16:28 CDT MELI CAMPO RN - 03/04/2016 16:28 CDT MELI CAMPO - 03/04/2016 16:28 CDT MELI CAMPO Iris RN - 03/04/2016 16:28 CDT Date : 04/09/2015 CDT 05/07/2015 ACCOUNTING ANALYST 06/04/2015 ACCOUNTING ANALYST 07/02/2015 ACCOUNTING ANALYST Location of INR sample : Lab [...] 5 weeks Plan completed by : darya CAMPO MELI L RN - 03/04/2016 16:28 CDT MELI CAMPO RN - 03/04/2016 16:28 CDT MELI CAMPO - 03/04/2016 16:28 CDT MELI CAMPO RN - 03/04/2016 16:28 CDT Date : 08/06/2015 ACCOUNTING ANALYST 09/17/2015 CDT 10/29/2015 CDT 11/12/2015 CDT [...] completed by : MELI Edwards RN - 03/04/2016 16:28 CDT MELI CAMPO RN - 03/04/2016 16:28 CDT MELI CAMPO - 03/04/2016 16:28 CDT MELI CAMPO RN - 03/04/2016 16:28 CDT Date : 11/19/2015 CDT 12/03/2015 CDT [...] completed by : MELI Pickett RN - 03/04/2016 16:28 CDT MELI CAMPO RN - 03/04/2016 16:28 CDT MELI CAMPO - 03/04/2016 16:28 CDT MELI CAMPO RN - 03/04/2016 16:28 CDT Date : 02/19/2016 CDT 02/20/2016 CDT 02/21/2016 CDT 02/22/2016 CDT Location of INR sample : [facility] Type of Sample : [...] Brizuela PharmMichaelD. BAUDILIO, PharmD Eliseo Quezada, PharmD. MELI CAMPO Iris RN - 03/04/2016 16:28 CDT MELI CAMPO Iris RN - 03/04/2016 16:28 CDT JAVIER MELI LRN - 03/04/2016 16:28 CDT MELI CAMPO Iris RN - 03/04/2016 16:28 CDT Date : 02/23/2016 CDT 02/24/2016 CDT [...] Brizuela, Pharm.D. Eliseo Quezada, PharmD. MELI CAMPO Iris RN - 03/04/2016 16:28 CDT JAVIERMELI Iris RN - 03/04/2016 16:28 CDT JAVIER MELI CHAVEZ - 03/04/2016 16:28 CDT MELI CAMPO Iris RN - 03/04/2016 16:28 CDT Date : 02/27/2016 CDT 03/01/2016 CDT 03/04/2016 CDT Location of INR sample [facility] Type of Sample : Venous Capillary/POC Venous INR Result : 2.07 2.5 2.2 Warfarin Dose : 2 mg daily 2mg daily 2.5mg 03/04-03/06 Total Weekly Warfarin Dose : 14 Comment : Pt being discharged on Bactrim. Will pepper picker rx for 2 mg tabs On bactrim 2 days left, has f/u in [place] on Monday. Pt mother states plan to return to [facility] on 03/06. next f[place]u [place] be [place]. 2mg TuWTh Rev'd with Jelly/Pharmacist,called to mom/Fabiola pt done with Bactrim saw [place] today pt is going back to [facility] with mom for another 1-2wks,she would like INR checked in but [facility] INR Clinic to follow will send msg to INR Clinic Recommend Recheck : Three days Three days, Other: in [place] Other: 03/07/16 Plan completed by : brenton Bowers RN NB MELI CAMPO RN - 03/04/2016 16:28 CDT MELI CAMPO RN - 03/04/2016 16:28 CDT MELI CAMPO - 03/04/2016 16:28 CDT Anticoagulation Assessment / History Visit : Phone management Plan of Care Date : 01/29/2008 CDT Primary Physician Anticoagulation : TASHA HENRIQUEZ MD 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 - 03/04/2016 2:24 PM CDT Results Notification From: MELI CAMPO RN ( Anticoagulation Nurse) To: Anticoagulation Nurse; Sent: 03/04/2016 14:24:25 CDT Show up: 03/04/2016 14:25:00 CDT Subject: Results Notification Results: Date Result Name Value Ref Range 03/04/2016 12:57 PT 24.1 second(s) (8.7 - 11.8) 03/04/2016 12:57 INR 2.2 INR (0.9 - 1.1) Source: [facility] POWERCHART Document Id: [id number] documented in this encounter Plan of Treatment Not on filedocumented as of this encounter Procedures Procedure Name Priority Date/Time Associated Comments Diagnosis PROTHROMBIN TIME Routine 03/04/2016 12:57 Results for this (PT), P PM CDT procedure are i n the results section. documented in this encounter Results (ABNORMAL) PT (Prothrombin Time) with INR (03/04/2016 12:57 PM CDT) [facility] Method Time Signature Prothrombin 24.1 (H) 8.7 - 11.8 POWERCHART Time, P SECONDS INR 2.2 (H) 0.9 - 1.1 POWERCHART INR Comment: Recommended INR for prophylaxis/treatmen t of Venous Thrombosis, Pulmonary Embolism, Myocardial Infarction, and Embolism from Atrial Fibrillation is 2.0- 3.0 (Standard Therapy) Recommended INR for Mechanical Heart Tejal ves and recurrent Systemic Embolism is 2.5-3.5 (Intensive Therapy) Specimen (Source) Anatomical Collection Method Collection Time Re ceived Time Location / / Volume Laterality Blood 03/04/2016 12:57 PM CDT Tasha Henriquez M.D. LAB BLOOD ADD-ON Performing Organization Address City/State/ZIP Code Phon e Number POWERCHART documented in this encounter Visit Diagnoses Not on filedocumented in this encounter
--- OUTSIDE RECORDS SUMMARY | 2022-04-25 16:01 | XMS_ITS | Encounter Summary ---
:1975 Author Organization [facility] Address [address] [place] [id number] Care Team Providers Name Role Phone Unavailable Primary Care Provider Unavailable Encounter Details Date Type Department Care Team Description 02/21/2016 - Hospital Encounter HX [facility], 02/27/2016 INPT/OBSRV Martha Herrera M.D. [address] [place] [address] [place] [id number] Social History Tobacco Use Types Packs/Day Years Used Date Smoking Tobacco: Never Assessed Sex Assigned at Date Recorded Not on file documented as of this encounter Last Filed Vital Signs Vital Sign Reading Time Taken Comments Blood Pressure 104/58 02/27/2016 10:33 AM CDT Pulse 72 02/27/2016 10:33 AM CDT Temperature - - Respiratory Rate 18 02/27/2016 10:33 AM CDT Oxygen Saturation - - Inhaled Oxygen Concentration - - Weight 83.9 kg (184 lb 15.5 oz) 02/26/2016 8:52 AM CDT Height 148 cm (4' 10.27) 02/27/2016 10:33 AM CDT Body Mass Index 38.3 02/26/2016 8:52 AM CDT documented in this encounter Discharge Summaries Fernanda Pennington M.D. - 02/27/2016 10:06 AM CDT Hospital Discharge Medication List [address] [place] [id number] Discharge Medication List Name: DORITA SHEFFIELD Current Date: 02/27/2016 10:06:22 : 1975 12:00 AM [facility] Number: [id number] Patient Address: [address] [place] [phone] Patient Primary Care Provider: Name: TASHA HENRIQUEZ MD Discharge Diagnosis: 1:Cellulitis of unspecified part of limb; 2:Primary Hypercoagulable State; 3:Edema Leg Multifactorial [facility] in [place] would like to thank you for allowing us to assist you withyour healthcare needs. The following includes patient education materials and information regarding your injury/illness. Medications Medication/Strength How to Take Indications/Special Instructions/Comments/Notes for Patient Medication Changes/Routing acetaminophen (acetaminophen 500 mg oral tablet) 2 Tablet(s), Oral, every 6 hours as needed for Pain/ Fever chlorhexidine topical (chlorhexidine 0.12% mucous membrane liquid) 15 Milliliter, Oral, once a day (at bedtime) fluoride topical (Prevident 5000 Plus topical paste) 1 luther, Topical, two times a day lactobacillus rhamnosus GG (lactobacillus rhamnosus GG oral capsule) 1 cap, Oral, two times a day may stop after 1 month Routed to [address] [id number] multivitamin (multivitamin) 1 tab, Oral, once a day piperacillin-tazobactam (Zosyn 3 g-0.375 g intravenous injection) 3.375 gm, Intravenous, every 6 hours sulfamethoxazole-trimethoprim (sulfamethoxazole-trimethoprim 800 mg-160 mg oral tablet) 1 Tablet(s),Oral, two times a day New Routed to [address] [id number] traMADol (traMADol 50 mg oral tablet) 1 Tablet(s), Oral, every 4 hours as needed for Pain Routed to Print warfarin (Coumadin 2 mg oral tablet) 1 Tablet(s), Oral, once a day Routed to [address] [id number] Stop Taking the Following Medications[place] [facility] [place] Medication list as of 02-27-16 10:06 Attention: If you have any medications at home that are not on this list, DO NOT take them until youcontact your provider for clarification. Give a copy of your medication list to your primary care provider. Update your medication list any time medications or doses are changed and carry your medication list at all times in case of emergency. Comment: Electronically Signed By: FERNANDA PENNINGTON MD Signed On:27-FEB-2016 10:06:13 Source: [facility] POWERCHART Document Id: [id number] Fernanda Pennington M.D. - 02/27/2016 10:06 AM CDT Hospital Discharge Instructions [address] [id number] Patient Discharge Instructions Name: DORITA SHEFFIELD Current Date: 02/27/2016 10:06:23 : 1975 12:00 AM [facility] Number: [id number] Patient Address: [address] [place] [id number] Patient Primary Care Provider: Name: TASHA HENRIQUEZ MD Discharge Diagnosis: 1:Cellulitis of unspecified part of limb; 2:Primary Hypercoagulable State; 3:Edema Leg Multifactorial [facility] in [place] would like to thank you for allowing us to assist you withyour healthcare needs. The following includes patient education materials and information regarding your injury/illness. Comment: DORITA SHEFFIELD has been given the following list of follow-up instructions, medication list, and patient education materials: Follow-up Instructions With: Address: Jun: TASHA HENRIQUEZ [address] [place] [address] [phone] Business (1) 03/04/2016 1:30 PM Comments: You are scheduled for a follow up Hospital Visit with Dr. Henriquez on Monday, March 04 at 1:30PM. With: Address: When: [facility] [address] [place] [id number] 03/01/2016 11:30 AM Comments: You are scheduled for an INR on March 01 at 11:30 AM. Medications Medication/Strength How to Take Indications/Special Instructions/Comments/Notes for Patient Medication Changes/Routing acetaminophen (acetaminophen 500 mg oral tablet) 2 Tablet(s), Oral, every 6 hours as needed for Pain/ Fever chlorhexidine topical (chlorhexidine 0.12% mucous membrane liquid) 15 Milliliter, Oral, once a day (at bedtime) fluoride topical (Prevident 5000 Plus topical paste) 1 luther, Topical, two times a day lactobacillus rhamnosus GG (lactobacillus rhamnosus GG oral capsule) 1 cap, Oral, two times a day may stop after 1 month Routed to [address] [address] multivitamin (multivitamin) 1 tab, Oral, once a day piperacillin-tazobactam (Zosyn 3 g-0.375 g intravenous injection) 3.375 gm, Intravenous, every 6 hours sulfamethoxazole-trimethoprim (sulfamethoxazole-trimethoprim 800 mg-160 mg oral tablet) 1 Tablet(s),Oral, two times a day New Routed to [address] [address] traMADol (traMADol 50 mg oral tablet) 1 Tablet(s), Oral, every 4 hours as needed for Pain Routed to Print warfarin (Coumadin 2 mg oral tablet) 1 Tablet(s), Oral, once a day Routed to [address] [address] Stop Taking the Following Medications[place] [facility] [place] Medication list as of 02-27-16 10:06 Attention: If you have any medications at home that are not on this list, DO NOT take them until youcontact your provider for clarification. Give a copy of your medication list to your primary care provider. Update your medication list any time medications or doses are changed and carry your medication list at all times in case of emergency. Comment: Electronically Signed By: FERNANDA PENNINGTON MD Signed On:27-FEB-2016 10:06:13 Your Upcoming Appointments Date Time Location Provider 03/01/2016 11:30 [facility] 03/04/2016 13:30 [facility] TSANG, Tasha Helton Consider Using Patient Online Services Patient Online [...] Youll be asked for your [facility] number which you can find at the top of this document. I, NETTIE, DORITA FROST , have received the attached patient education materials/instructions and have verbalized understanding: Patient Signature Date Time Care Provider Signature Date Time Preventing Falls in the Home As you get older, falls are more likely. Thats because your reaction time slows. Your muscles and joints may also get stiffer, making them less flexible. Illness, medications, and vision changes can also affect your balance. A fall could leave you unable to live on your own. To make your home safer, follow these tips: Floors ?? Put nonskid pads under area rugs. ?? Remove throw rugs. ?? Replace worn floor coverings. ?? Tack carpets firmly to each step on carpeted stairs. Put nonskid strips on the edges of uncarpeted stairs. ?? Keep floors and stairs free of clutter and cords. ?? Arrange furniture so there are clear pathways. ?? Clean up any spills right away. Bathrooms ?? Install grab bars in the tub or shower. ?? Apply nonskid strips or put a nonskid rubber mat in the tub or shower. ?? Sit on a bath chair to bathe. ?? Use bathmats with nonskid backing. Lighting ?? Keep a flashlight in each room. ?? Put a nightlight along the pathway between the bedroom and the bathroom. ?? [place] [address]. All rights reserved. This information is not intended as a substitute for professional medical care. Always follow your healthcare professional's instructions. Cellulitis You have an infection of the [...] rectal, after two days on antibiotics ?? [place] [address]. All rights reserved. This information is not intended as a substitute for professional medical care. Always follow your healthcare professional's instructions. This document has images extracted. Please consider using [employer] for all your patient education needs. Source: [email or web address] Document Id: [id number] Jenny Abreu R.N. - 02/27/2016 10:00 AM CDT Discharge Summary Discharge Summary Entered On: 02/27/2016 14:40 CDT Performed On: 02/27/2016 10:00 CDT by JENNY ABREU RN [place] Information Discharged to : Home with family care Current Home Treatments : Wound care, Other: Elevate leg. Home Equipment : None Professional Skilled Services : None Special Services and Community Resources : None Mode of Discharge : Wheelchair Discharge Transportation : Private vehicle Accompanied By : Other: Patients mother. Date/Time of Discharge : 02/27/2016 10:45 CDT JENNY ABREU RN - 02/27/2016 14:37 CDT Education General Patient Education [employer] Topics : Safety, fall, Use of pain scale(s) Individuals Taught : Patient Barriers to Learning : None evident Teaching Method : Explanation Teaching Evaluation : Verbalizes understanding JENNY ABREU RN - 02/27/2016 14:37 CDT Valuables/Belongings Comment : All belongings sent home with patient. JENNY ABREU RN - 02/27/2016 14:37 CDT Source: [employer] Document Id: [id number] CDT!21 Fernanda Pennington M.D. - 02/27/2016 12:00 AM CDT [id number] ADMISSION DATE: 02/21/2016 DISCHARGE DATE: 02/27/2016 FINAL DIAGNOSES 1. Cellulitis of the right lower leg. 2. Primary hypercoagulable state. 3. Multifactorial chronic leg edema. 4. Down syndrome. HISTORY OF PRESENT ILLNESS A 41-year-old female was admitted to the hospital after failure of outpatient treatment on several antibiotics for her right lower leg cellulitis. Patient has had a lot of edema with that. She usually lives alone and she has been getting her antibiotics but to no avail, it has not helped. 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 Patient was admitted for further treatment opportunities. DIAGNOSTICS Her pro-time at discharge was 2.07. Her hemoglobin before discharge is 11.2 with hematocrit 34.2, MCV of 100, platelet count 193,000. Her sodium was 134.8, potassium 4.4, chloride 98, blood sugar 100, creatinine 1.11, estimated GFR was 54. Calcium level was 8.9. Her CRP was coming down at 71.2. It was97.9 on admission. Her lactic acid was 1.6. Blood cultures revealed no growth at 4 days and that was4 days ago. HOSPITALIZATION Patient was admitted to the hospital and then transferred to swing bed for continued care and IV antibiotics. She was initially placed on Zosyn and then vancomycin was ordered. It was improving and heredema was going down but still would reoccur when she put her leg down. The lower leg anterior jose going back to the calf was tender so an ultrasound of the right lower extremity was done to rule out DVT and there was no DVT. Patient's redness continued to improve and the edema did go down compared to where it was before. Patient's redness significantly improved when she was switched to Bactrim DS which we watched her for 2 days and it continued to improve. After rest the swelling was down but whenshe would get up to go the bathroom or stand or have her leg down for even a little amount of time, 10 to 15 minutes, she would develop more edema in that leg. Since she is on only oral antibiotics andelevation of the leg we decided to discharge her home with her parents today. She is to keep her legelevated most of the time. She is following up with her regular doctor at the end of the week. She will have a pro-time done at [facility] here on Monday. DISCHARGE MEDICATIONS Acetaminophen 1000 mg every 6 hours as needed for pain or fever. She has a mucous membrane rinse, liquid chlorhexidine as needed. PreviDent Plus paste. She is also on lactobacillus or probiotic 1 capsule 2 times a day with meals. Stop after 1 month. Multivitamin daily. Bactrim DS 1 tablet 2 times a day for another 6 days. Tramadol 1 tablet every 4 hours as needed for pain. Warfarin 2 mg daily. It has been emphasized that when this gets better if she is going to be going to work she needs to wrap her legs or wear support hose and that this is a potential re-occurring problem. She also should put some type of skin moisturizer on her lower legs and she should keep her legs up as much as possibl e. I do not want her going back to work until given the okay by her usual physician. We reviewed this with her mother, asked her if she had any questions or concerns. She said no and that the patient will be home but I told her that this could take 3 to 4 more weeks, that I think it is not the active cellulitis as much at this time as it is the inflammatory edema problems she also has. Her mother does not want her to use Motrin because of the risk with the Coumadin which we have agreed even though it might be of some help. We will leave that off at this time. Fernanda Pennington M.D./erin Electronically Signed By: FERANNDA PENNINGTON MD On: 02/27/2016 04:12 PM Modified by and Electronically Signed by: FERNANDA PENNINGTON MD On: 02/27/2016 04:12 PM Source: [facility] MHSDOLBEYNONRADSYS Document Id: [id number] documented in this encounter Medications at Time [...] documented as of this encounter Progress Notes Fernanda Pennington M.D. - 02/26/2016 12:00 AM CDT [id number] SUBJECTIVE A 41-year-old [place] female was admitted to the hospital with right lower leg cellulitis she has a history of a previous DVT in this leg. She has chronic edema of this leg with stasis dermatitis and hasdeveloped the cellulitis. Cultures have been negative. She does have an allergy to quinolones. She is had improvement with her walking. She has also had improvement with the edema in her leg. She has been on antibiotics for about a week now. She has had no troubles with the antibiotics to date. OBJECTIVE VITAL SIGNS: Blood pressure 106/65, O2 sat is 94% on room air, respirations 18, pulse 68. She is afebrile. HEENT: Unremarkable. LUNGS: Clear. HEART: Regular rhythm and rate. ABDOMEN: Obese. EXTREMITIES: Right leg, there is chronic edema and stasis dermatitis, but the redness that was down onto her foot is gone. The swelling over the area of redness and heat is significantly down, too. There is no tenderness behind the calf, and the warmth on the leg is significantly improved, too. She still has some hyperesthesia there, but otherwise she is walking without any difficulty. ASSESSMENT Right lower leg cellulitis. PLAN Will put her on Bactrim DS 1 tablet 2 times a day, discontinue the Zosyn and the vancomycin and see how she is doing tomorrow. Hopefully this will hold, and she will be able to go home then. If not, one would have to consider should we try clindamycin on her. Fernanda Pennington M.D./erin Electronically Signed By: FERNANDA PENNINGTON MD On: 02/26/2016 02:17 PM Source: [facility] MHSDOLBEYNONRADSYS Document Id: [id number] Fernanda Pennington M.D. - 02/24/2016 12:00 AM CDT [id number] SUBJECTIVE A very nice young lady, 41 years old, was admitted to the hospital with right leg cellulitis. Patient did have a right lower extremity ultrasound, which was negative for DVT. She had been diagnosed with it in about mid January, was placed on doxycycline, but it did not work. [facility]. She is on chronic anticoagulation for a previous leg DVT 9 years ago. She has not been running any fever. The leg has been very tender. She is on a wrap now on her leg that is relatively loose but she does have it elevated. She had been complaining of pain. The patientdoes have Down syndrome. OBJECTIVE VITAL SIGNS: Blood pressure 113/59. She is afebrile at 37.3, pulse is 69, respirations 16, O2 saturation on room air is 96%. HEENT: Unremarkable. LUNGS: Clear. HEART: Regular rhythm and rate. ABDOMEN: Obese. EXTREMITIES: Right leg does show the tenderness along the posterior calf and along the anterior aspect of the leg. She does have significant stasis dermatitis. There is no weeping. The swelling is downsomewhat. She has a little bit of redness behind the knee area. It is nontender. She has no tenderness going up the leg medially. The redness really has not expanded beyond where they had marked the cellulitis. It is very warm to touch, not really that reddened, but she has diffuse tenderness. Left leg shows some mild stasis dermatitis but no signs of cellulitis or tenderness. DIAGNOSTICS She has had no growth on her blood cultures. Her CRP 2 days ago was 71.2. Pro- time INR today is 2.85. White cell count is normal at 4700, platelet count 193,000. Glucose was 100 two days ago. ASSESSMENT 1. Right leg cellulitis. 2. History of right leg deep vein thrombosis. 3. Chronic swelling of the right leg with varicose veins with severe stasis dermatitis. 4. Obesity. PLAN Will continue on the dual IV antibiotics at this time. Will need to watch that area posterior to theknee. She is adequately anticoagulated. We will continue to watch her closely and hopefully will be able to get her on antibiotics orally. Probably would pick Bactrim or clindamycin. She is allergic toquinolone antibiotics. Fernanda Pennington M.D./erin Electronically Signed By: FERNANDA PENNINGTON MD On: 02/24/2016 01:08 PM Source: [facility] MHSDOLBEYNONRADLEONIDS Document Id: [id number] Martha Cabral M.D. - 02/23/2016 11:05 AM CDT Hospital Progress Note (SOAP) SUBJECTIVE Dorita is a 41-year-old patient who was admitted for cellulitis of the right lower extremity afterfailing treatment as an outpatient. Today patient reports that things are going good. Her leg continues to be swollen and she thinks the pain is about the same but states it is hard for her to compare. She has been up walking a couple times and states that she does not have too much pain when she does this. She has not had any problemswith her breathing. Appetite is okay. No nausea or vomiting. She has had some loose stools. Nursing staff also notes some apnea when sleeping. VITAL SIGNS HR: 75 RR: 18 BP: 107 / 56 SpO2: 95% WT: 84.4 kg PHYSICAL EXAMINATION General: Alert and oriented. Patient is tearful with movement of the right leg. Extremities: Left lower leg with trace pedal edema and some brown hyperpigmentation/venous stasis changes. On the right lower leg, patient has 1+ pedal edema with erythema/hyperpigmentation anteriorlythat is probably the same to a little better, definitely not worse. In the popliteal fossa, patient has erythema that is not really connected to the prior area of erythema. The redness may be a little fainter. It is tender to palpation and continues to be a little warm. 2+ DP pulses bilaterally. ASSESSMENT/PLAN 1. Cellulitis Leg R Exam is probably about the same to a little better. Again tried to educate patient that she is likely always going to have some degree of swelling because of the varicose veins. Pain seems to be a little better today. CRP is trending down which is reassuring. Encouraged patient to get up and walk andto wear the light compressive garment to help. I am also going to add ibuprofen to help with some ofthe inflammatory changes. Ultrasound and xray yesterday were negative for acute findings. Vancomycinadded. Discussed that venous stasis can contribute and sometimes make it challenging to determine what is infection and what isn't. 2. Insufficiency Renal NOS Improved. 3. Deep Venous Thrombosis Pers Hx Patient is chronically anticoagulated and her INR is in range. Pharmacy is managing. FOOTNOTES [1]Hospital Progress Note (SOAP); MARTHA ARTHUR MD 02/22/2016 11:28 CDT [2]Hospital Progress Note (SOAP); MARTHA ARTHUR MD 02/22/2016 11:28 CDT Electronically Signed By: MARTHA ARTHUR MD On: 02/23/2016 11:11 AM Source: [employer] Document Id: [id number] Whit Swift, P.T. - 02/22/2016 3:10 PM CDT Physical Therapy Initial Evaluation Physical Therapy Initial Evaluation Entered On: 02/22/2016 15:29 CDT Performed On: 02/22/2016 15:10 CDT by WHIT SWIFT [facility] General Info Reason for Referral to Physical Therapy : Decreased mobility Physical Therapy Orders : Physical Therapy Evaluate & Treat - 02/21/16 13:31:00 CDT, cellulitis,mobility Pain Symptoms : Yes WHIT SWIFT - 02/22/2016 15:10 CDT Pain Scale Pain Scale Verbal 0-10 : Open WHIT SWIFT - 02/22/2016 15:10 CDT Pain Pain Assessment Grid Pain 1 Location : Foot (Comment: Right foot due to cellulitis [WHIT SWIFT - 02/22/2016 15:10 CDT]) WHIT SWIFT - 02/22/2016 15:10 CDT Home Environment Living Environment : No Living Environment Information Available Lives In : Apartment Lives With : Alone WHIT SWIFT - 02/22/2016 15:10 CDT Prior Functional Level Grid Bed Mobility : Independent Transfers : Independent Ambulation at Home : Independent Community Ambulation : Independent Toilet Transfers : Independent Upper Extremity Bathing : Independent Lower Extremity Bathing : Independent Upper Extremity Dressing : Independent Lower Extremity Dressing : Independent Grooming : Independent HWIT SWIFT [facility] - 02/22/2016 15:10 CDT Home Living Additional Information : Pt is a pleasant 41 yr old female that was admitted due to cellulitis of the right foot. Prior to hospitalization pt lived alone at [facility] in [place]. Pt planson returning there when she is D/C'd from the hospital. PMH: Atrioventricular canal, cellulitis, protein deficiency, tricuspid valve disorder, hyperlipidemea, menstral irregularities, mitral valve regurgitation, hypercoagulabel state, psoriasis, stenosis mitral congenital, thrombophlebitis deep vein LE, thrombosis deep vein acute LE, trisomy 21 WHIT SWIFT [place] - 02/22/2016 15:10 CDT Musculoskeletal PT Range of Motion Grid Left Lower Extremity : Active Within Normal Limits Right Lower Extremity : Active Within Normal Limits JENIFFERWHIT CHEN Iris [facility] - 02/22/2016 15:10 CDT Left Lower Extremity Strength : Normal 5 Right Lower Extremity Strength : Limited WHIT SWIFT [place] - 02/22/2016 15:10 CDT Right LE Strength Right Lower Extremity Strength Grid Hip Flexion : Normal 5 Knee Flexion : Normal 5 Knee Extension : Normal 5 Ankle Dorsiflexion : not tested due to cellulitis Ankle Plantarflexion : not tested due to cellulitis WHIT SWIFT [facility] - 02/22/2016 15:10 CDT Balance/Mobility Mobility Grid Roll Left : Independent Roll Right : Independent Supine to Sit : Independent Sit to Supine : Independent Scooting : Independent Sit to Stand : Independent Stand to Sit : Independent WHIT SWIFT [place] - 02/22/2016 15:10 CDT Ambulation Level : Contact guard assistance Ambulation Distance : 30 m Ambulation Repetitions : 1 Ambulation Device Utilized : Front wheeled walker Ambulation Quality : Pt ambulated in a slow methotical way until the last 25 ft. Then she quickly picked up the pace was able to move quite fast. WHIT SWIFT [facility] - 02/22/2016 15:10 CDT Assessment Rehabilitation Potential : Good PT Clinical Assessment : Pt will be D/C'd from PT due to not having a skilled need at this time. Pt will be placed on a regular walking schedule with nursing to prevent decline in mobility status. [facility] - 02/22/2016 15:10 CDT Goals PT Patient/Caregiver Goal : Pt stated she enjoys her time here and is in no hurry to go home. [facility] - 02/22/2016 15:10 CDT Plan PT Frequency : Discontinue PT Plan/Goals Established w Pt/Caregiver : Yes [facility] - 02/22/2016 15:10 CDT DC Recommendations Discharge To, Anticipated : Home independently Home Equipment, Anticipated : Walker Walker Specifics : Front wheeled walker [facility] - 02/22/2016 15:10 CDT Education PT Education Grid Topics : Physical Therapy plan of care Individuals Taught : Patient, Parent Barriers to Learning : Cognitive deficit, Desire/Motivation Teaching Method : Explanation [facility] - 02/22/2016 15:10 CDT PT Charge Registration Status - PT : Inpatient: Hospital/TCU PT Evaluation Time : 30 minute(s) Physical Therapy Evaluation Charges : Yes [facility] - 02/22/2016 15:10 CDT [email or web address] Document Id: [id number] CDT!77 Martha Cabral M.D. - 02/22/2016 11:28 AM CDT Hospital Progress Note (SOAP) SUBJECTIVE Dorita is a 41-year-old patient who was admitted for cellulitis of the right lower extremity afterfailing treatment as an outpatient. Yesterday afternoon, the nurse was concerned that there was increased redness on the back of patient's right leg. Today on exam she does have some increased erythema in the popliteal fossa. There is also some hyperpigmentation above the top line although this appears more consistent with venous stasis change. Patient continues to have tenderness with palpation as well as swelling. Mom is concerned because patient does not seem to be progressing as expected despite treatment with IV antibiotics. VITAL SIGNS HR: 77 RR: 22 BP: 102 / 54 SpO2: 93% WT: 83.5 kg PHYSICAL EXAMINATION General: Alert and oriented. Patient is tearful with movement of the right leg. Extremities: Left lower leg with trace pedal edema and some brown hyperpigmentation/venous stasis changes. On the right lower leg, patient has 1+ pedal edema with erythema/hyperpigmentation anteriorly. This may be extending a little more proximally. In the popliteal fossa, patient has erythema that is not really connected to the prior area of erythema. It is tender to palpation and continues to be alittle warm. 2+ DP pulses bilaterally. LAB RESULTS -----HEMATOLOGY----- Hgb: 11.2 Low 02/22/16 Hct: 34.2 Low 02/22/16 WBC: 4.7 02/22/16 RBC: 3.42 Low 02/22/16 MCV: 100.0 High 02/22/16 RDW: 13.4 02/22/16 Platelet: 193 02/22/16 PT: 27.9 High 02/22/16 INR: 2.46 High 02/22/16 -----CHEMISTRY----- Sodium Lvl: 134.8 Low 02/22/16 Potassium Lvl: 4.4 02/22/16 Chloride: 98 02/22/16 CO2: 27.9 02/22/16 AGAP: 9 Low 02/22/16 Glucose Lvl: 100 02/22/16 Creatinine: 1.11 02/22/16 EGFR (MDRD): 54 Low 02/22/16 EGFR (MDRD): >60 02/22/16 BUN: 12 02/22/16 Calcium Lvl: 8.9 02/22/16 DIAGNOSTIC RESULTS Report 22-Feb-2016 14:35:00 Exam: R Tibia Fibula 2vw AP/Lat Indications: leg swelling, pain 22-Feb-2016 15:18 CA EXAM: Right Tibia Fibula 2vw AP/Lat: IMPRESSION: Soft tissue swelling about the right tibia and fibula. No underlying osseous abnormalities. Mild degenerative changes right knee joint. Carissa Marti MD. [phone] 22-Feb-2016 15:18 [2] Report 22-Feb-2016 14:47:00 Exam: R US Lower Extremity Veins Lmt Indications: leg swelling, redness, R/O DVT 22-Feb-2016 15:28 CA PROCEDURE: US Extremity Duplex Scan Veins Limited with color and spectral Doppler analysis RIGHT COMPARISON: 02/14/2016 IMPRESSION: No right lower extremity DVT. HISTORY: leg swelling, redness, R/O DVT FINDINGS: Color flow and spectral Doppler with waveform analysis was performed of the right leg. Deep venous structures are patent with no evidence of thrombosis. Normal compressibility, phasicity and patency of the common femoral, femoral, and popliteal veins. Calf veins are difficult to visualize, but normal where segmentally seen. No thrombus is seen. Doppler waveforms appear normal. Lower extremity varicose veins. Lance Cheatham MD 22-Feb-2016 15:28 [3] ASSESSMENT/PLAN 1. Cellulitis Leg R Patient has new redness to the back of her knee although father states it has been there for a day or two. Continued pain which seems worse today. She had an ultrasound on 02/13 that was negative and has had a therapeutic INR. We still decided to obtain an ultrasound as well as an xray to rule out other causes of leg pain and swelling. Both of these were negative for acute findings. We will also add vancomycin and monitor for improvement. Discussed that venous stasis can contribute and sometimes make it challenging to determine what is infection and what isn't. 2. Insufficiency Renal NOS Improved. 3. Deep Venous Thrombosis Pers Hx Patient is chronically anticoagulated and her INR is in range. Pharmacy is managing. FOOTNOTES [1]Hospital Progress Note (SOAP); MARTHA ARTHUR MD 02/21/2016 11:07 CDT [2]XR Tibia and Fibula Right 2 views; DUYEN CORTÉS 02/22/2016 14:26 CDT [3]US Venous Doppler Lower Ext Right; SHUKRI SINGLETON(R) 02/22/2016 14:46 CDT [4]Hospital Progress Note (SOAP); MARTHA ARTHUR MD 02/21/2016 11:07 CDT Electronically Signed By: MARTHA ARTHUR MD On: 02/22/2016 04:52 PM Source: [employer]CHART Document Id: [id number] Martha Cabral M.D. - 02/21/2016 11:07 AM CDT Hospital Progress Note (SOAP) SUBJECTIVE Dorita is a 41-year-old patient who was admitted for cellulitis of the right lower extremity afterfailing treatment as an outpatient. Today she reports that things are going okay. She still has painwhen she gets up and moves. Leg is still swollen. Otherwise no problems with her breathing, bowel, or bladder function. Appetite is good. VITAL SIGNS HR: 78 RR: 16 BP: 104 / 56 SpO2: 94% WT: 82.5 kg PHYSICAL EXAMINATION General: Alert and oriented. No [...] erythema anteriorly. This is decreased compared to yesterday as well as the outline of initial affected area. It is tender to palpation and continues to be a little warm. 2+ DP pulses bilaterally. -----HEMATOLOGY----- PT: 35.2 High 02/21/16 INR: 3.01 High 02/21/16 ASSESSMENT/PLAN 1. Cellulitis Leg R Erythema appears a little better today. Patient continues with swelling which is likely her baseline. Continued pain which makes it hard to move. She is on day four of IV antibiotics. We are going to transition her to Swing Bed status to continue IV antibiotics and do some therapy prior to discharge home. Patient lives on her own and we want to be sure that she has a successful discharge. The original H&P is still up to date. 2. Insufficiency Renal NOS Improved. Recheck tomorrow. 3. Deep Venous Thrombosis Pers Hx Patient is chronically anticoagulated and her INR is much better today. Pharmacy is managing. FOOTNOTES [1]Hospital Progress Note (SOAP); MARTHA ARTHUR MD 02/20/2016 11:29 CDT [2]Hospital Progress Note (SOAP); MARTHA ARTHUR MD 02/20/2016 11:29 CDT Electronically Signed By: MARTHA ARTHUR MD On: 02/21/2016 11:11 AM Source: [facility] [employer] Document Id: [id number] documented in this encounter Procedure Notes Jenny Abreu R.N. - 02/27/2016 10:30 AM CDT Peripheral IV Peripheral IV Entered On: 02/27/2016 14:41 CDT Performed On: 02/27/2016 10:30 CDT by JENNY ABREU RN Peripheral IV Peripheral IV Assess/Intervention Grid Peripheral IV #1 Peripheral IV #2 Peripheral IV #3 IV Activity : Discontinue Removal : Catheter intact, Hemostasis within expected timeframe Catheter intact, Hemostasis within expected timeframe Catheter intact, Hemostasis within expected timeframe Date of Insertion : 02/25/2016 CDT 02/21/2016 CDT 02/23/2016 CDT Discontinued Date : 02/23/2016 CDT 02/25/2016 CDT IV Site : Antecubital Wrist Forearm Laterality : Left Left Left Catheter Size : 20 20 22 Catheter Type : Over the needle Over the needle JENNY ABREU RN - 02/27/2016 14:40 CDT JENNY ABREU RN - 02/27/2016 14:40 CDT JENNY ABREU RN - 02/27/2016 14:40 CDT Source: [facility] [employer] Document Id: [id number] CDT!26 Eliseo Quezada, PharmMichaelD., R.Ph. - 02/26/2016 10:18 AM CDT Pharmacokinetic Monitoring Pharmacokinetic Monitoring Entered On: 02/26/2016 10:18 CDT Performed On: 02/26/2016 10:18 CDT by ELISEO QUEZADA Kinetics Note Pharmacokinetic Demographics - Grid Date : 02/22/2016 CDT Age (years) : 41 year(s) Admission Weight (kg) : 82.5 kg Ordering Provider : MARTHA ARTHUR MD, PAUL A - 02/26/2016 10:18 CDT Pharmacokinetic Drug Information - Grid Date : 02/22/2016 CDT Drug : Vancomycin Pharmacokinetic Indication : Cellulitis Goal Vancomycin Trough : 10-15 mcg/mL ELISEO QUEZADA - 02/26/2016 10:18 CDT SCr Results : Creatinine: 1.11 02/22/16 Creatinine: 1.15 02/20/16 Creatinine: 1.50 High 02/19/16 Creatinine: 1.06 02/18/16 Aminoglycoside Dosing Guidelines : Aminoglycoside Dosing Guidelines Vancomycin Dosing Guidelines : Vancomycin Dosing Guidelines ELISEO QUEZADA - 02/26/2016 10:18 CDT Pharmacokinetic Plan - Grid Date : 02/22/2016 CDT 02/25/2016 CDT 02/26/2016 CDT Day of Therapy : 1 5 Scr (mg/dl) : 1.11 mg/dL CrCl (ml/min) : 43 Trough (mcg/ml) : 12.2 Current Dose : 1250 mg [id number] Other Antibiotics : Zosyn 3.375 gm q6hr. Zosyn 3.375 gm q6hr Zosyn 3.375 gm q6hr Assessment/Plan : GIve 1250 mg Vanco IV q 24 hours and check trough prior to the 4th dose on 02-25-16 Continue current regimen IV Antibiotics discontinued today and Oral Bactrim DS BID initiated [facility] Initials : PF GJ PF ELISEO QUEZADA - 02/26/2016 10:18 CDT ELISEO QUEZADA - 02/26/2016 10:18 CDT ELISEO QUEZADA - 02/26/2016 10:18 CDT Source: [facility] [employer] Document Id: [id number] CDT!39 Eliseo Quezada Pharm.DMichael, R.Ph. - 02/26/2016 9:50 AM CDT Pharmacokinetic Monitoring Pharmacokinetic Monitoring Entered On: 02/26/2016 9:51 CDT Performed On: 02/26/2016 9:50 CDT by ELISEO QUEZADA Kinetics Note Pharmacokinetic Demographics - Grid Date : 02/22/2016 CDT Age (years) : 41 year(s) Admission Weight (kg) : 82.5 kg Ordering Provider : MARTHA ARTHUR MD, PAUL A - 02/26/2016 9:50 CDT Pharmacokinetic Drug Information - Grid Date : 02/22/2016 CDT Drug : Vancomycin Pharmacokinetic Indication : Cellulitis Goal Vancomycin Trough : 10-15 mcg/mL ELISEO QUEZADA - 02/26/2016 9:50 CDT SCr Results : Creatinine: 1.11 02/22/16 Creatinine: 1.15 02/20/16 Creatinine: 1.50 High 02/19/16 Creatinine: 1.06 02/18/16 Aminoglycoside Dosing Guidelines : Aminoglycoside Dosing Guidelines Vancomycin Dosing Guidelines : Vancomycin Dosing Guidelines ELISEO QUEZADA - 02/26/2016 9:50 CDT Pharmacokinetic Plan - Grid Date : 02/22/2016 CDT 02/25/2016 CDT 02/26/2016 CDT Day of Therapy : 1 5 Scr (mg/dl) : 1.11 mg/dL CrCl (ml/min) : 43 Trough (mcg/ml) : 12.2 Current Dose : 1250 mg [id number] Other Antibiotics : Zosyn 3.375 gm q6hr. Zosyn 3.375 gm q6hr Zosyn 3.375 gm q6hr Assessment/Plan : GIve 1250 mg Vanco IV q 24 hours and check trough prior to the 4th dose on 02-25-16 Continue current regimen IV Antibiotics discontinued today and Oral Bactrim DS BID initiated [facility] Initials : PF GJ PF ELISEO QUEZADA - 02/26/2016 9:50 CDT ELISEO QUEZADA - 02/26/2016 9:50 CDT ELISEO QUEZADA - 02/26/2016 9:50 CDT [email or web address] Document Id: [id number] CDT!39 Sabrina Medina RMichaelNMichael - 02/25/2016 5:33 PM CDT Peripheral IV Peripheral IV Entered On: 02/25/2016 17:34 CDT Performed On: 02/25/2016 17:33 CDT by SABRINA MEDINA RN Peripheral IV Peripheral IV Assess/Intervention Grid Peripheral IV #1 Peripheral IV #2 Peripheral IV #3 IV Activity : Start Removal : Catheter intact, Hemostasis within expected timeframe Catheter intact, Hemostasis within expected timeframe Number of Attempts : 1 Date of Insertion : 02/25/2016 CDT 02/21/2016 CDT 02/23/2016 CDT Discontinued Date : 02/23/2016 CDT 02/25/2016 CDT IV Site : Antecubital Wrist Forearm Laterality : Left Left Left Catheter Size : 20 20 22 Catheter Type : Over the needle Over the needle Site Condition : No complications Drainage Description : None Site/Line Care : Secured with tape Dressing/ Activity : Dry, Intact, Transparent Flow/ Patency : No complications SABRINA MEDINA RN - 02/25/2016 17:33 CDT SABRINA MEDINA RN - 02/25/2016 17:33 CDT SABRINA MEDINA RN - 02/25/2016 17:33 CDT Source: [employer] Document Id: [id number] CDT!31 Sabrina Medina R.N. - 02/25/2016 5:11 PM CDT Peripheral IV Peripheral IV Entered On: 02/25/2016 17:12 CDT Performed On: 02/25/2016 17:11 CDT by SABRINA MEDINA RN Peripheral IV Peripheral IV Assess/Intervention Grid Peripheral IV #1 Peripheral IV #2 Peripheral IV #3 IV Activity : Discontinue Removal : Catheter intact Catheter intact, Hemostasis within expected timeframe Catheter intact, Hemostasis within expected timeframe Date of Insertion : 02/21/2016 CDT 02/23/2016 CDT Discontinued Date : 02/21/2016 CDT 02/23/2016 CDT 02/25/2016 CDT IV Site : Antecubital Wrist Forearm Laterality : Left Left Left Catheter Size : 20 22 Catheter Type : Over the needle Site Condition : Pain, mild to moderate Drainage Description : None Phlebitis Score : 1 Dressing/ Activity : Dry, Intact Flow/ Patency : Does not flush SABRINA MEDINA RN - 02/25/2016 17:11 CDT SABRINA MEDINA RN - 02/25/2016 17:11 CDT SABRINA MEDINA RN - 02/25/2016 17:11 CDT Source: [facility] [employer] Document Id: [id number] CDT!29 Sasha Brizuela Pharm.D., R.Ph. - 02/25/2016 1:10 PM CDT Pharmacokinetic Monitoring Pharmacokinetic Monitoring Entered On: 02/25/2016 13:12 CDT Performed On: 02/25/2016 13:10 CDT by SASHA BRIZUELA Pharm.D., R.Ph. Kinetics Note Pharmacokinetic Demographics - Grid Date : 02/22/2016 CDT Age (years) : 41 year(s) Admission Weight (kg) : 82.5 kg Ordering Provider : MARTHA ARTHUR MD, GERALD G Pharm.D., R.Ph. - 02/25/2016 13:10 CDT Pharmacokinetic Drug Information - Grid Date : 02/22/2016 CDT Drug : Vancomycin Pharmacokinetic Indication : Cellulitis Goal Vancomycin Trough : 10-15 mcg/mL SASHA BRIZUELA Pharm.D., R.Ph. - 02/25/2016 13:10 CDT SCr Results : Creatinine: 1.11 02/22/16 Creatinine: 1.15 02/20/16 Creatinine: 1.50 High 02/19/16 Creatinine: 1.06 02/18/16 Aminoglycoside Dosing Guidelines : Aminoglycoside Dosing Guidelines Vancomycin Dosing Guidelines : Vancomycin Dosing Guidelines SASHA BRIZUELA Pharm.D., R.Ph. - 02/25/2016 13:10 CDT Pharmacokinetic Plan - Grid Date : 02/22/2016 CDT 02/25/2016 CDT Day of Therapy : 1 Scr (mg/dl) : 1.11 mg/dL CrCl (ml/min) : 43 Trough (mcg/ml) : 12.2 Other Antibiotics : Zosyn 3.375 gm q6hr. Zosyn 3.375 gm q6hr Assessment/Plan : GIve 1250 mg Vanco IV q 24 hours and check trough prior to the 4th dose on 02-25-16 Continue current regimen [facility] Initials : PF GJ SASHA BRIZUELA.D., R.Ph. - 02/25/2016 13:10 CDT SASHA BRIZUELA Pharm.D., R.Ph. - 02/25/2016 13:10 CDT Source: [facility] [employer] Document Id: [id number] CDT!32 Eliseo Quezada PharmMichaelDMichael, R.Ph. - 02/23/2016 8:00 AM CDT Pharmacokinetic Monitoring Pharmacokinetic Monitoring Entered On: 02/23/2016 8:01 CDT Performed On: 02/23/2016 8:00 CDT by ELISEO QUEZADA Kinetics Note Pharmacokinetic Demographics - Grid Date : 02/22/2016 CDT Age (years) : 41 year(s) Admission Weight (kg) : 82.5 kg Ordering Provider : MARTHA ARTHUR MD, PAUL A - 02/23/2016 8:00 CDT Pharmacokinetic Drug Information - Grid Date : 02/22/2016 CDT Drug : Vancomycin Pharmacokinetic Indication : Cellulitis Goal Vancomycin Trough : 10-15 mcg/mL ELISEO QUEZADA - 02/23/2016 8:00 CDT SCr Results : Creatinine: 1.11 02/22/16 Creatinine: 1.15 02/20/16 Creatinine: 1.50 High 02/19/16 Creatinine: 1.06 02/18/16 Aminoglycoside Dosing Guidelines : Aminoglycoside Dosing Guidelines Vancomycin Dosing Guidelines : Vancomycin Dosing Guidelines ELISEO QUEZADA - 02/23/2016 8:00 CDT Pharmacokinetic Plan - Grid Date : 02/22/2016 CDT Day of Therapy : 1 Scr (mg/dl) : 1.11 mg/dL CrCl (ml/min) : 43 Other Antibiotics : Zosyn 3.375 gm q6hr. Assessment/Plan : GIve 1250 mg Vanco IV q 24 hours and check trough prior to the 4th dose on 02-25-16 [facility] Initials : ELISEO CASTRO - 02/23/2016 8:00 CDT [email or web address] Document Id: [id number] CDT!26 Sabrina Barrios R.NMichael - 02/22/2016 8:05 AM CDT Pulse Oximetry Pulse Oximetry Entered On: 02/22/2016 8:05 CDT Performed On: 02/22/2016 8:05 CDT by SABRINA BARRIOS RN Pulse Oximetry SpO2 : 93 % (LOW) Saturation Probe Site : Hand, right Oxygen Therapy : Room air SARBINA BARRIOS RN - 02/22/2016 8:05 CDT [email or web address] Document Id: [id number] CDT!5 Arash Fajardo M.S., M.S.N., R.N. - 02/21/2016 3:30 PM CDT Peripheral IV Peripheral IV Entered On: 02/21/2016 16:30 CDT Performed On: 02/21/2016 15:30 CDT by ARASH FAJARDO RN Peripheral IV Peripheral IV Assess/Intervention Grid Peripheral IV #1 Peripheral IV #2 IV Activity : Discontinue Start Removal : Catheter intact Number of Attempts : 1 Date of Insertion : 02/21/2016 CDT Discontinued Date : 02/21/2016 CDT IV Site : Antecubital Wrist Laterality : Left Left Catheter Size : 20 Catheter Type : Over the needle Site Condition : No complications Drainage Description : None Infiltration Score : 0 Phlebitis Score : 0 Dressing/ Activity : Dry, Gauze Transparent Flow/ Patency : No complications ARASH FAJARDO RN - 02/21/2016 16:28 CDT ARASH FAJARDO RN - 02/21/2016 16:28 CDT [email or web address] Document Id: [id number] CDT!24 documented in this encounter Nursing Notes Jenny Abreu R.N. - 02/27/2016 10:45 AM CDT Discharge note Pt discharge summary discussed with patient and patients mother. All questions answered. Scripts sent with patients mother. IV discontinued catheter intact. VSS. Pt left with mother via wheel chair [id number] via personal vehicle. Electronically Signed By: JENNY ABREU RN On: 02/27/2016 02:46 PM Source: [employer] Document Id: [id number] Sabrina Barrios R.N. - 02/27/2016 4:24 AM CDT swingbed note ADLs-How much help does the patient need to_ Wash_minimum assist needed to complete leeanna & hair care Dress_ did not occur Mouth care/dentures_independent Shower/bath_did not occur Transfer assistance_stand by assist with gait belt, walker Ambulate and distance_patient ambulated once this shift Bowel and Bladder _ Continent or incontinent_continent of bladder and bowel this shift. Wear adult briefs_no Assistance needed with toileting_no assistance needed with toileting, pt needs help wiping. Staff to assist and remind patient how to use toilet wand to better wipe herself. Medications or procedures (scanning, training, meds, cat)_n/a Activities_ Offered and how much time did they spend on it_patient watched television x3 hours and had family visiting. Positioning/chair time/offloading/pressure relief_patient repositioned self in bed throughout shift Therapies_ Walking program/ROM_patient ambulated once this shift Special equipment (CPM, sling, brace)_gait belt, walker Appetite_ Dietary needs/orders (textures, supplements, adaptive equipment/restriction)_general Assistance with eating_independent Amount of supplements completed_n/a Behavior_ Behaviors and what are they_pleasant and cooperative Alarms_alarm placed for safety while sleeping, using call light appropriately Memory difficulties_none noted Sleeping difficulties and how well do they sleep_ Wounds/skin care_ Summary of Dressing changes_ Skin Breakdown_cellulitis area intact, no weeping or drainage noted. Redness is within outlined areas. Edema has decreased to +1. Continuing to elevate leg on pillows. Oxygen use_NONE New or chronic oxygen use_ Liters needed_ Attempts to wean (Oxygen sats with and without oxygen, at rest and with activity)_ PICC or peripheral line_peripheral to L AC Dressing appearance_clean, dry, intact Dressing change_n/a Problems with flushing or drawing from line_none Isolation Needs_NONE Yes/No_ Type_ Education_ What is the education need_proper use of toilet wand to better clean self Who needs the education_patient How is education going and what are the barriers, if any_ Electronically Signed By: SABRINA BARRIOS RN On: 02/27/2016 04:34 AM Source: [facility] [employer] Document Id: [id number] Jenny Abreu R.N. - 02/26/2016 3:33 PM CDT Shift note ADLs-How much help does the patient need to_ Wash_Pt independently washed face and upper extremites. Dress_ Mouth care/dentures_Pt independently brushes teeth. Shower/bath_n/a Transfer assistance_Pt ambulates assist of one gait belt and walker with wheelchair to follow. Ambulate and distance_Pt ambulated 2 times this shift 67M. Bowel and Bladder _ Continent or incontinent_Continent Wear adult briefs_ Assistance needed with toileting_Pt needs assistance to transfer to toilet. Pt can perform own pericares. Medications or procedures (scanning, training, meds, cat)_ Activities_ Offered and how much time did they spend on it_Pt watched TV and talked with family. Positioning/chair time/offloading/pressure relief_Pt repositions self. Therapies_ Walking program/ROM_Pt is to walk TID. Special equipment (CPM, sling, brace)_ Appetite_ Dietary needs/orders (textures, supplements, adaptive equipment/restriction)_Pt on a regular diet. Assistance with eating_Independent. Amount of supplements completed_ Behavior_ Behaviors and what are they_No behaviors noted. Alarms_n/a Memory difficulties_ Sleeping difficulties and how well do they sleep_Pt stated she slept well. Wounds/skin care_ Summary of Dressing changes_ n/a Skin Breakdown_Pt has psoriasis no issues noted. Oxygen use_ New or chronic oxygen use_n/a Liters needed_ Attempts to wean (Oxygen sats with and without oxygen, at rest and with activity)_ PICC or peripheral line_ Dressing appearance_CDI Dressing change_ Problems with flushing or drawing from line_No problems flushing. Isolation Needs_ Yes/No_n/a Type_ Education_ What is the education need_Pt educated on importance of ambulating in prevention of DVT Who needs the education_patient. How is education going and what are the barriers, if any_Pt verbalized understanding and ambulated. Electronically Signed By: JENNY ABREU RN On: 02/26/2016 06:56 PM Modified by and Electronically Signed by: JENNY ABREU RN On: 02/26/2016 06:56 PM Source: [employer] Document Id: [id number] Jenny Abreu R.N. - 02/26/2016 9:39 AM CDT PRN Response PRN Response Entered On: 02/26/2016 11:52 CDT Performed On: 02/26/2016 9:39 CDT by JENNY ABREU RN Intervention Information: tramadol Performed by JENNY ABREU RN on 02/26/2016 08:39:00 CDT traMADol,50mg PO,Pain PRN Medication Effectiveness Evaluation PRN Medication Effective : Yes Post Medication Pain Assessment : 6 JENNY ABREU RN - 02/26/2016 11:52 CDT Source: [employer] Document Id: [id number] CDT!4 Sayda Andrews R.N. - 02/26/2016 3:18 AM CDT shift note ADLs-How much help does the patient need to_ Wash_minimum assist with cueing Dress_independent for upper body, minimum assist for lower body r/t cellulitis pain in RLE Mouth care/dentures_independent Shower/bath_minimum assist with [employer] Transfer assistance_stand by assist with gait belt, walker Ambulate and distance_patient ambulated x3 this shift, each time 68 meters with no cueing needed. Bowel and Bladder _ Continent or incontinent_continent of bladder and bowel this shift. Wear adult briefs_no Assistance needed with toileting_no assistance needed with toileting, pt needs help wiping. Medications or procedures (scanning, training, meds, cat)_n/a Activities_ Offered and how much time did they spend on it_patient watched television ([employer]) and had family visiting. Positioning/chair time/offloading/pressure relief_patient repositioned self in bed and recliner throughout shift, was up to chair for all meals during the day Therapies_ Walking program/ROM_patient ambulated x3 AM shift each time 68 meters, tolerated well pt also ambulated 2X this shift 55 m. Special equipment (CPM, sling, brace)_gait belt, walker Appetite_ Dietary needs/orders (textures, supplements, adaptive equipment/restriction)_general Assistance with eating_independent Amount of supplements completed_n/a Behavior_NONE Behaviors and what are they_ Alarms_ Memory difficulties_ Sleeping difficulties and how well do they sleep_ Wounds/skin care_ Summary of Dressing changes_ IV site inserted in left AC 20 gauge, no complications Skin Breakdown_cellulitis area intact, no weeping or drainage noted. Redness has improved. Less painful per patient reports. Oxygen use_NONE New or chronic oxygen use_ Liters needed_ Attempts to wean (Oxygen sats with and without oxygen, at rest and with activity)_ PICC or peripheral line_peripheral L AC Dressing appearance_clean, dry, intact Dressing change_n/a Problems with flushing or drawing from line_none Isolation Needs_NONE Yes/No_ Type_ Education_ What is the education need_ Who needs the education_ How is education going and what are the barriers, if any_ Electronically Signed By: SAYDA ANDREWS RN On: 02/26/2016 03:20 AM Source: [facility] Document Id: [id number] Sayda Andrews R.N. - 02/26/2016 3:16 AM CDT PRN Response PRN Response Entered On: 02/26/2016 3:16 CDT Performed On: 02/26/2016 3:16 CDT by SAYDA ANDREWS RN Intervention Information: tramadol Performed by SAYDA ANDREWS RN on 02/26/2016 00:46:00 CDT traMADol,50mg PO,Pain PRN Medication Effectiveness Evaluation PRN Medication Effective : Other: Pt sleeping SAYDA ANDREWS RN - 02/26/2016 3:16 CDT Source: [facility] Document Id: [id number] CDT!3 Sayda Andrews R.N. - 02/25/2016 9:37 PM CDT PRN Response PRN Response Entered On: 02/25/2016 21:37 CDT Performed On: 02/25/2016 21:37 CDT by SAYDA ANDREWS RN Intervention Information: tramadol Performed by SAYDA ANDREWS RN on 02/25/2016 20:20:00 CDT traMADol,50mg PO,Pain PRN Medication Effectiveness Evaluation PRN Medication Effective : Yes Post Medication Pain Assessment : 3 SAYDA ANDREWS RN - 02/25/2016 21:37 CDT Pain Scale Pain Scale Verbal 0-10 : Open Pain Scale Non-Verbal FLACC : Open SAYDA ANDREWS RN - 02/25/2016 21:37 CDT Pain Pain Assessment Grid Pain 1 Location : Lower leg SAYDA ANDREWS RN - 02/25/2016 21:37 CDT Source: [facility] Document Id: [id number] CDT!11 Sabrina Medina R.N. - 02/25/2016 5:49 PM CDT Swing Bed Progress Note ADLs-How much help does the patient need to_ Wash_minimum assist with cueing Dress_independent for upper body, minimum assist for lower body r/t cellulitis pain in RLE Mouth care/dentures_independent Shower/bath_minimum assist with ASSISTIVE TECHNOLOGY TRAINER Transfer assistance_stand by assist with gait belt, walker Ambulate and distance_patient ambulated x3 this shift, each time 68 meters with no cueing needed. Bowel and Bladder _ Continent or incontinent_continent of bladder and bowel this shift. No BM noted Wear adult briefs_no Assistance needed with toileting_no assistance needed with toileting; patient independent Medications or procedures (scanning, training, meds, cat)_n/a Activities_ Offered and how much time did they spend on it_patient watched television, read newspaper, had visitors totaling 10 hours Positioning/chair time/offloading/pressure relief_patient repositioned self in bed and recliner throughout shift, was up to chair for all meals this shift Therapies_ Walking program/ROM_patient ambulated x3 this shift each time 68 meters, tolerated well Special equipment (CPM, sling, brace)_gait belt, walker Appetite_ Dietary needs/orders (textures, supplements, adaptive equipment/restriction)_general Assistance with eating_independent Amount of supplements completed_n/a Behavior_NONE Behaviors and what are they_ Alarms_ Memory difficulties_ Sleeping difficulties and how well do they sleep_ Wounds/skin care_ Summary of Dressing changes_ new IV site inserted in left AC 20 gauge Skin Breakdown_cellulitis area intact, no weeping or drainage noted. Redness has improved. Less painful per patient reports. Oxygen use_NONE New or chronic oxygen use_ Liters needed_ Attempts to wean (Oxygen sats with and without oxygen, at rest and with activity)_ PICC or peripheral line_peripheral L AC Dressing appearance_clean, dry, intact Dressing change_n/a Problems with flushing or drawing from line_none Isolation Needs_NONE Yes/No_ Type_ Education_ What is the education need_ Who needs the education_ How is education going and what are the barriers, if any_ Electronically Signed By: SABRINA MEDINA RN On: 02/25/2016 05:56 PM Source: [facility] Document Id: [id number] Sabrina Medina R.N. - 02/25/2016 2:49 PM CDT PRN Response PRN Response Entered On: 02/25/2016 14:49 CDT Performed On: 02/25/2016 14:49 CDT by SABRINA MEDINA RN Intervention Information: tramadol Performed by STACIA STONE RN on 02/25/2016 14:25:00 CDT traMADol,50mg PO,Pain PRN Medication Effectiveness Evaluation PRN Medication Effective : Yes Post Medication Pain Assessment : 3 SABRINA MEDINA RN - 02/25/2016 14:49 CDT Source: [facility] Document Id: [id number] CDT!4 Sayda Andrews R.N. - 02/25/2016 12:21 AM CDT shift note ADLs-How much help does the patient need to_ Wash_minimum assistance with washing. Dress_independent with upper body, patient required assistance with lower body to put on underwear and shorts r/t RLE pain of cellulitis Mouth care/dentures_independent Shower/bath_did not occur this shift, patient requires minimum assistance with showering Transfer assistance_1 assist, gait belt, walker Ambulate and distance_patient ambulated within room this shift and walked outside of room each totaling 68 meters per walk. Bowel and Bladder _ Continent or incontinent_continent of bowel and bladder. No loose BMs noted this shift. Patient consumed yogurt x3 and scheduled lactobacillus as ordered. Wear adult briefs_refused tonight Assistance needed with toileting_patient requires assistance with wiping after having BMs Medications or procedures (scanning, training, meds, cat)_none Activities_ Offered and how much time did they spend on it_patient had family and friends visiting on and off this shift, watched television. Positioning/chair time/offloading/pressure relief_Patient able to reposition self in bed and readjust pillows/blankets as needed. Up to chair for all meals. Therapies_ Walking program/ROM_Patient to ambulate TID to keep strength up while hospitalized. Special equipment (CPM, sling, brace)_gait belt, walker r/t pain in RLE cellulitis. Appetite_ Dietary needs/orders (textures, supplements, adaptive equipment/restriction)_patient encouraged to consume drinks other than juice. Patient tried lemon water on AM shift but did not like the taste. Patient drank milk with pills and in between meals. Assistance with eating_independent Amount of supplements completed_n/a Behavior_NONE Behaviors and what are they_ Alarms_ Memory difficulties_ Sleeping difficulties and how well do they sleep_ Wounds/skin care_NONE Summary of Dressing changes_ Skin Breakdown_cellulitis to RLE improving in redness/swelling. Some redness still noted in posterior popliteal region. DVT negative on ultrasound. Oxygen use_NONE New or chronic oxygen use_ Liters needed_ Attempts to wean (Oxygen sats with and without oxygen, at rest and with activity)_ PICC or peripheral line_peripheral Dressing appearance_dry, intact, transparent Dressing change_not done this shift Problems with flushing or drawing from line_none Isolation Needs_NONE Yes/No_ Type_ Education_ What is the education need_encourage independence with cares Who needs the education_patient How is education going and what are the barriers, if any_motivation Electronically Signed By: SAYDA ANDREWS RN On: 02/25/2016 12:26 AM Source: [facility] POWERCHART Document Id: [id number] Audrey Hendrix L.S.W. - 02/25/2016 12:00 AM CDT [id number] Today, February 25, 2016 this Nursing Faculty was informed by therapy that the patient would benefit from a front wheeled walker upon discharging from here. This Nursing Faculty visited with the patient and her mother who is one of her conservators. The patient's mother is still in agreement with not needing to have a care conference while the patient is in the transitional care/swing bed program. Also she explained that they already have a front wheeled walker at home. The patient's mother has been updating the patient's home care agency and formerly [facility] Nursing Faculty on discharge planning and neither the patient or her mother had any questions or concerns at this time. Therapy was updated on the fact thatthe patient already has a front wheeled walker at home. Sadiq Falcon/erin Electronically Signed By: AUDREY HENDRIX On: 02/26/2016 10:44 AM Modified by and Electronically Signed by: AUDREY HENDRIX On: 02/26/2016 10:44 AM Source: [facility] MHSDOLBEYNONRADSYS Document Id: [id number] Sayda Andrews RViktor - 02/24/2016 11:33 PM CDT PRN Response PRN Response Entered On: 02/24/2016 23:33 CDT Performed On: 02/24/2016 23:33 CDT by SAYDA ANDREWS RN Intervention Information: acetaminophen Performed by SAYDA ANDREWS RN on 02/24/2016 22:14:00 CDT acetaminophen,1000mg PO,Pain(c) PRN Medication Effectiveness Evaluation PRN Medication Effective : Yes Post Medication Pain Assessment : 5 SAYDA ANDREWS RN - 02/24/2016 23:33 CDT Source: [facility] POWERCHART Document Id: [id number] CDT!4 Sabrina Medina R.N. - 02/24/2016 2:23 PM CDT Swing Bed Progress Note ADLs-How much help does the patient need to_ Wash_minimum assistance with washing. Dress_independent with upper body, patient required assistance with lower body to put on underwear and shorts r/t RLE pain of cellulitis Mouth care/dentures_independent Shower/bath_did not occur this shift, patient requires minimum assistance with showering Transfer assistance_1 assist, gait belt, walker Ambulate and distance_patient ambulated within room this shift and walked outside of room x2 each totaling 68 meters per walk. Bowel and Bladder _ Continent or incontinent_continent of bowel and bladde. No loose BMs noted this shift. Patient consumed yogurt x3 and scheduled lactobacillus as ordered. Wear adult briefs_at night only Assistance needed with toileting_patient requires assistance with wiping after having BMs Medications or procedures (scanning, training, meds, cat)_none Activities_ Offered and how much time did they spend on it_patient had family and friends visiting on and off this shift, watched television, listened to iPod totaling 9 hours. Patient slept in until 10am. Positioning/chair time/offloading/pressure relief_Patient able to reposition self in bed and readjust pillows/blankets as needed. Up to chair for all meals. Therapies_ Walking program/ROM_Patient to ambulate TID to keep strength up while hospitalized. Special equipment (CPM, sling, brace)_gait belt, walker r/t pain in RLE cellulitis. Appetite_ Dietary needs/orders (textures, supplements, adaptive equipment/restriction)_patient encouraged to consume drinks other than juice. Patient tried lemon water this shift but did not like the taste. Patient drank milk with pills and in between meals. Assistance with eating_independent Amount of supplements completed_n/a Behavior_NONE Behaviors and what are they_ Alarms_ Memory difficulties_ Sleeping difficulties and how well do they sleep_ Wounds/skin care_NONE Summary of Dressing changes_ Skin Breakdown_cellulitis to RLE improving in redness/swelling. Some redness still noted in posterior popliteal region. DVT negative on ultrasound. Oxygen use_NONE New or chronic oxygen use_ Liters needed_ Attempts to wean (Oxygen sats with and without oxygen, at rest and with activity)_ PICC or peripheral line_peripheral Dressing appearance_dry, intact, transparent Dressing change_not done this shift Problems with flushing or drawing from line_none Isolation Needs_NONE Yes/No_ Type_ Education_ What is the education need_encourage independence with cares Who needs the education_patient How is education going and what are the barriers, if any_motivation Electronically Signed By: SABRINA MEDINA RN On: 02/24/2016 02:34 PM Source: [facility] Document Id: [id number] Sabrina Medina R.N. - 02/24/2016 10:38 AM CDT PRN Response PRN Response Entered On: 02/24/2016 10:38 CDT Performed On: 02/24/2016 10:38 CDT by SABRINA MEDINA RN Intervention Information: tramadol Performed by SABRINA MEDINA RN on 02/24/2016 10:00:00 CDT traMADol,50mg PO,Pain PRN Medication Effectiveness Evaluation PRN Medication Effective : Yes Post Medication Pain Assessment : 3 SABRINA MEDINA RN - 02/24/2016 10:38 CDT Source: [facility] Document Id: [id number] CDT!4 Audrey Hendrix L.SFlaco - 02/24/2016 10:18 AM CDT Galvanizing Pot Runner/Discharge Planning Galvanizing Pot Runner/Discharge Planning Entered On: 02/24/2016 10:19 CDT Performed On: 02/24/2016 10:18 CDT by AUDREY HENDRIX Assessment Galvanizing Pot Runner Needs : Galvanizing Pot Runner Assessment Follow in Interdisciplinary Team : Yes Referral : Physician Information Obtained From : Parent Languages : Com[place]an Home Demonstration Agent Needed : No Mental Status : Alert Health Care/Fin Decision appointee : Yes AUDREY HENDRIX - 02/24/2016 10:18 CDT Advance Directive Advanced Directives : Yes Advance Directive Type : Health care power of general education professor, Other: Conservatorship Advance Directive Location : Copy placed on paper chart AUDREY HENDRIX 02/24/2016 10:18 CDT Psychosocial Domestic Abuse Concerns : None Behavioral Health Screen/Safety Assmt : No Anabaptism Preference : Unknown AUDREY HENDRIX - 02/24/2016 10:18 CDT Dependent Habits Exposure to Tobacco Smoke : Other: never smoker Smoking Status : Never smoker Tobacco 2A : No Tobacco Use/Currently Using : No Tobacco Use/Last 30 Days : No Tobacco Use/Last 12 months : No AUDREY HENDRIX 02/24/2016 10:18 CDT Caffeine Use Grid Caffeine Use : Current Type : Soft drinks Frequency : Occasionally Amount : pop AUDREY HENDRIX - 02/24/2016 10:18 CDT Recreational Drug Use Grid Drug Use : None AUDREY HENDRIX - 02/24/2016 10:18 CDT Source: [facility] Document Id: [id number] CDT!34 Deborah Dacosta - 02/24/2016 6:10 AM CDT PRN Response PRN Response Entered On: 02/24/2016 6:35 CDT Performed On: 02/24/2016 6:10 CDT by DEBORAH DACOSTA RN Intervention Information: tramadol Performed by DEBORAH DACOSTA RN on 02/24/2016 05:10:00 CDT traMADol,50mg PO,Pain PRN Medication Effectiveness Evaluation PRN Medication Effective : Other: pt appears to be sleeping DEBORAH DACOSTA RN - 02/24/2016 6:34 CDT Source: [facility] Document Id: [id number] CDT!3 Deborah Dacosta - 02/24/2016 3:47 AM CDT swing bed note ADLs-How much help does the patient need to_ Wash_mod assist of 1 for leeanna care. Dress_ Mouth care/dentures_independent Shower/bath_moderate assist x1 Transfer assistance_assist x1 using gait belt & walker Ambulate and distance_patient [id number] this shift for total of 68m Bowel and Bladder _ Continent or incontinent_continent of bladder & bowel Wear adult briefs_NA Assistance needed with toileting_Wiping Medications or procedures (scanning, training, meds, cat)_ Activities_ Offered and how much time did they spend on it_watched TV most of the shift, visiting with family & friends for several hours, card playing Positioning/chair time/offloading/pressure relief_ Therapies_ Walking program/ROM_amb 3x/day, goal of 100 feet minimum. pt ambulated total of 5x this day Special equipment (CPM, sling, brace)_ Appetite_ Dietary needs/orders (textures, supplements, adaptive equipment/restriction)_ general Assistance with eating_none needed Amount of supplements completed_NA Behavior_ Behaviors and what are they_none. Pleasant and cooperative Alarms_bed alarmed, precautionary for cognitive delay Memory difficulties_NA Sleeping difficulties and how well do they sleep_NA Wounds/skin care_ Summary of Dressing changes_NA Skin Breakdown_areas of psoriasis on elbows, buttocks Oxygen use_NA New or chronic oxygen use_ Liters needed_ Attempts to wean (Oxygen sats with and without oxygen, at rest and with activity)_ PICC or peripheral line_ Dressing appearance_ IV changed to L FA and L wrist was dc'd with no complications. Dressing change_ Problems with flushing or drawing from line_NA Isolation Needs_ Yes/No_No Type_ Education_ What is the education need_infection prevention, importance of increased movement Who needs the education_ How is education going and what are the barriers, if any_cognitive delay Electronically Signed By: DEBORAH DACOSTA RN On: 02/24/2016 03:50 AM [facility] Document Id: [id number] Deborah Dacosta - 02/23/2016 10:43 PM CDT PRN Response PRN Response Entered On: 02/23/2016 22:37 CDT Performed On: 02/23/2016 22:43 CDT by DEBORAH DACOSTA RN Intervention Information: tramadol Performed by DEBORAH DACOSTA RN on 02/23/2016 21:43:00 CDT traMADol,50mg PO,Pain PRN Medication Effectiveness Evaluation PRN Medication Effective : Yes DEBORAH DACOSTA RN - 02/23/2016 22:37 CDT Source: [facility] Document Id: [id number] CDT!3 Sabrina Barrios R.N. - 02/23/2016 6:17 PM CDT swingbed note ADLs-How much help does the patient need to_ Wash_min assist x1 to wash hair. Max assist x1 to wash back & feet. Mod assist x1 with leeanna. Dress_max assist x1 to dress upper & lower body Mouth care/dentures_independent Shower/bath_moderate assist x1 Transfer assistance_assist x1 using gait belt & walker Ambulate and distance_patient ambulated 4x times this shift for a total of 176 meters. Bowel and Bladder _ Continent or incontinent_continent of bladder & bowel Wear adult briefs_NA Assistance needed with toileting_Wiping Medications or procedures (scanning, training, meds, cat)_ Activities_ Offered and how much time did they spend on it_watched TV most of the shift, visiting with family & friends for several hours, card playing/listening to music 2 hours Positioning/chair time/offloading/pressure relief_ Therapies_ Walking program/ROM_amb 3x/day, goal of 100 feet minimum. Patient has ambulated 4x this shift for atotal of 176 meters. Special equipment (CPM, sling, brace)_ Appetite_ Dietary needs/orders (textures, supplements, adaptive equipment/restriction)_ general Assistance with eating_none needed Amount of supplements completed_NA Behavior_ Behaviors and what are they_none. Pleasant and cooperative Alarms_bed alarmed, precautionary for cognitive delay Memory difficulties_NA Sleeping difficulties and how well do they sleep_NA Wounds/skin care_ Summary of Dressing changes_NA Skin Breakdown_areas of psoriasis on elbows, buttocks Oxygen use_NA New or chronic oxygen use_ Liters needed_ Attempts to wean (Oxygen sats with and without oxygen, at rest and with activity)_ PICC or peripheral line_ Dressing appearance_IV to left wrist if intact. Flushes somewhat sluggishly and is positional. Due to be changed tomorrow 02/23. Dressing change_ Problems with flushing or drawing from line_NA Isolation Needs_ Yes/No_No Type_ Education_ What is the education need_infection prevention, importance of increased movement Who needs the education_ How is education going and what are the barriers, if any_cognitive delay Electronically Signed By: SABRINA BARRIOS RN On: 02/23/2016 06:33 PM Modified by and Electronically Signed by: SABRINA BARRIOS RN On: 02/23/2016 06:33 PM Source: [facility] Document Id: [id number] Sabrina Barrios R.N. - 02/23/2016 2:25 PM CDT PRN Response PRN Response Entered On: 02/23/2016 15:20 CDT Performed On: 02/23/2016 14:25 CDT by SABRINA BARRIOS RN Intervention Information: tramadol Performed by SABRINA BARRIOS RN on 02/23/2016 13:29:00 CDT traMADol,50mg PO,Pain PRN Medication Effectiveness Evaluation PRN Medication Effective : Yes Post Medication Pain Assessment : 3 SABRINA BARRIOS RN - 02/23/2016 15:20 CDT Source: [facility] Document Id: [id number] CDT!4 Sabrina Barrios R.N. - 02/23/2016 9:26 AM CDT PRN Response PRN Response Entered On: 02/23/2016 9:27 CDT Performed On: 02/23/2016 9:26 CDT by SABRINA BARRIOS RN Intervention Information: tramadol Performed by SABRINA BARRIOS RN on 02/23/2016 08:29:00 CDT traMADol,50mg PO,Pain PRN Medication Effectiveness Evaluation PRN Medication Effective : Yes Post Medication Pain Assessment : 4 SABRINA BARRIOS RN - 02/23/2016 9:26 CDT Source: [facility] Document Id: [id number] CDT!4 Stacia Stone R.N. - 02/23/2016 2:14 AM CDT PRN Response PRN Response Entered On: 02/23/2016 2:14 CDT Performed On: 02/23/2016 2:14 CDT by STACIA STONE RN Intervention Information: tramadol Performed by STACIA STONE RN on 02/23/2016 00:55:00 CDT traMADol,50mg PO,Pain PRN Medication Effectiveness Evaluation PRN Medication Effective : Yes Post Medication Pain Assessment : 0 STACIA STONE RN - 02/23/2016 2:14 CDT Source: [facility] Document Id: [id number] CDT!4 Stacia Stone R.N. - 02/23/2016 1:28 AM CDT swing bed note ADLs-How much help does the patient need to_ Wash_minimal upper body, maximal lower body Dress_moderatelower body, minimal upper body Mouth care/dentures_indep Shower/bath_moderate Transfer assistance_SBA Ambulate and distance_in hallway with gait belt, walker and wheelchair behind, approx. 30M Bowel and Bladder _ Continent or incontinent_continent Wear adult briefs_NA Assistance needed with toileting_Wiping Medications or procedures (scanning, training, meds, cat)_ Activities_ Offered and how much time did they spend on it_ visiting with father prior to bed, slept comfortably through the night. Positioning/chair time/offloading/pressure relief_ independent Therapies_ Walking program/ROM_amb 3x/day Special equipment (CPM, sling, brace)_none Appetite_ Dietary needs/orders (textures, supplements, adaptive equipment/restriction)_NA Assistance with eating_NA Amount of supplements completed_NA Behavior_ Behaviors and what are they_ Alarms_bed alarmed, precautionary d/t cognitive delay Memory difficulties_NA Sleeping difficulties and how well do they sleep_NA Wounds/skin care_ Summary of Dressing changes_NA Skin Breakdown_areas of psoriasis on elbows, buttocks; RLE foot, ankle and behind knee red and edematous but no open areas Oxygen use_NA New or chronic oxygen use_ Liters needed_ Attempts to wean (Oxygen sats with and without oxygen, at rest and with activity)_ PICC or peripheral line_ Dressing appearance_clean, dry intact Dressing change_not due Problems with flushing or drawing from line_none Isolation Needs_ Yes/No_No Type_ Education_ What is the education need_encouraging self care and independence Who needs the education_pt How is education going and what are the barriers, if any_cognitive delay Electronically Signed By: STACIA STONE RN On: 02/23/2016 01:43 AM Source: [facility] POWERCHART Document Id: [id number] Sabrina Barrios RMichaelN. - 02/22/2016 7:21 PM CDT swingbed note ADLs-How much help does the patient need to_ Wash_moderate assist x1 to wash hair. Max assist x1 to wash back, feet & leeanna. Dress_max assist x1 to dress upper & lower body Mouth care/dentures_independent Shower/bath_moderate to max assist x1 Transfer assistance_SBA Ambulate and distance_30 meters x 2 Bowel and Bladder _ Continent or incontinent_continent Wear adult briefs_NA Assistance needed with toileting_Wiping Medications or procedures (scanning, training, meds, cat)_ Activities_ Offered and how much time did they spend on it_watched TV most of the shift, visiting with family several hours, card playing/listening to music 2 hours Positioning/chair time/offloading/pressure relief_ Therapies_ Walking program/ROM_amb 3x/day, goal of 100 feet minimum Special equipment (CPM, sling, brace)_ Appetite_ Dietary needs/orders (textures, supplements, adaptive equipment/restriction)_ general Assistance with eating_none needed Amount of supplements completed_NA Behavior_ Behaviors and what are they_none. Pleasant and cooperative Alarms_bed alarmed, precautionary for cognitive delay Memory difficulties_NA Sleeping difficulties and how well do they sleep_NA Wounds/skin care_ Summary of Dressing changes_NA Skin Breakdown_areas of psoriasis on elbows, buttocks Oxygen use_NA New or chronic oxygen use_ Liters needed_ Attempts to wean (Oxygen sats with and without oxygen, at rest and with activity)_ PICC or peripheral line_ Dressing appearance_IV to left wrist if intact and infusing without issues Dressing change_ Problems with flushing or drawing from line_NA Isolation Needs_ Yes/No_No Type_ Education_ What is the education need_infection prevention Who needs the education_pt How is education going and what are the barriers, if any_cognitive delay Electronically Signed By: SABRINA BARRIOS RN On: 02/22/2016 07:27 PM Source: [facility] POWERCHART Document Id: [id number] Sita Harris RMichaelNMichael - 02/22/2016 7:16 PM CDT PRN Response PRN Response Entered On: 02/22/2016 19:16 CDT Performed On: 02/22/2016 19:16 CDT by SITA HARRIS RN Intervention Information: tramadol Performed by SABRINA BARRIOS RN on 02/22/2016 18:45:00 CDT traMADol,50mg PO,Pain PRN Medication Effectiveness Evaluation PRN Medication Effective : Yes Post Medication Pain Assessment : 3 SITA HARRIS RN - 02/22/2016 19:16 CDT Source: [facility] TapTrak Document Id: [id number] CDT!4 Sabrina Barrios R.N. - 02/22/2016 3:40 PM CDT PRN Response PRN Response Entered On: 02/22/2016 16:02 CDT Performed On: 02/22/2016 15:40 CDT by SABRINA BARRIOS RN Intervention Information: tramadol Performed by SABRINA BARRIOS RN on 02/22/2016 14:41:00 CDT traMADol,50mg PO,Pain PRN Medication Effectiveness Evaluation PRN Medication Effective : Yes Post Medication Pain Assessment : 0 SABRINA BARRIOS RN - 02/22/2016 16:01 CDT Source: [employer] Document Id: [id number] CDT!4 Sabrina Barrios R.N. - 02/22/2016 2:37 PM CDT PRN Response PRN Response Entered On: 02/22/2016 14:37 CDT Performed On: 02/22/2016 14:37 CDT by SABRINA BARRIOS RN Intervention Information: acetaminophen Performed by SABRINA BARRIOS RN on 02/22/2016 13:04:00 CDT acetaminophen,1000mg PO,Pain PRN Medication Effectiveness Evaluation PRN Medication Effective : Yes Post Medication Pain Assessment : 5 SABRINA BARRIOS RN - 02/22/2016 14:37 CDT Source: [facility] TapTrak Document Id: [id number] CDT!4 Sabrina Barrios R.N. - 02/22/2016 11:01 AM CDT PRN Response PRN Response Entered On: 02/22/2016 11:01 CDT Performed On: 02/22/2016 11:01 CDT by SABRINA BARRIOS RN Intervention Information: tramadol Performed by SABRINA BARRIOS RN on 02/22/2016 09:59:00 CDT traMADol,50mg PO,Pain PRN Medication Effectiveness Evaluation PRN Medication Effective : Yes Post Medication Pain Assessment : 0 SABRINA BARRIOS RN - 02/22/2016 11:01 CDT Source: [employer] Document Id: [id number] CDT!4 Meli Garza R.N. - 02/22/2016 9:50 AM CDT Focused Assessment - Gastrointestinal Focused Assessment - Gastrointestinal Entered On: 02/22/2016 9:50 CDT Performed On: 02/22/2016 9:50 CDT by MELI GARZA RN Gastrointestinal Stool Color : Brown Stool Description : Loose Stool Amount : Large MELI GARZA RN - 02/22/2016 9:50 CDT Source: [employer] Document Id: [id number] CDT!5 Ana Jonas - 02/22/2016 3:55 AM CDT Swing Bed ADLs-How much help does the patient need to_ Wash_minimal upper body, maximal lower body Dress_moderatelower body, minimal upper body Mouth care/dentures_indep Shower/bath_moderate Transfer assistance_SBA Ambulate and distance_in room, short Bowel and Bladder _ Continent or incontinent_continent Wear adult briefs_NA Assistance needed with toileting_Wiping Medications or procedures (scanning, training, meds, cat)_ Activities_ Offered and how much time did they spend on it_ visiting with family prior to bed, slept comfortably through the night. Positioning/chair time/offloading/pressure relief_ independent Therapies_ Walking program/ROM_amb 3x/day Special equipment (CPM, sling, brace)_ Appetite_ Dietary needs/orders (textures, supplements, adaptive equipment/restriction)_NA Assistance with eating_NA Amount of supplements completed_NA Behavior_ Behaviors and what are they_ Alarms_bed alarmed precautionary for cognitive delay Memory difficulties_NA Sleeping difficulties and how well do they sleep_NA Wounds/skin care_ Summary of Dressing changes_NA Skin Breakdown_areas of psoriasis on elbows, buttocks Oxygen use_NA New or chronic oxygen use_ Liters needed_ Attempts to wean (Oxygen sats with and without oxygen, at rest and with activity)_ PICC or peripheral line_ Dressing appearance_ Dressing change_ Problems with flushing or drawing from line_NA Isolation Needs_ Yes/No_No Type_ Education_ What is the education need_infection prevention Who needs the education_pt How is education going and what are the barriers, if any_cognitive delay Electronically Signed By: ANA JONAS RN On: 02/22/2016 04:32 AM Source: [facility] POWERCHART Document Id: [id number] ICIAT Audrey Hendrix L.S.W. - 02/22/2016 12:00 AM CDT [id number] Today, February 22, 2016 this Nursing Faculty visited with the patient's mother. She explained that she has been updating the patient's formerly [facility] Nursing Faculty and her home care regarding the patient's plan of care. The plan is for the patient to stay with her parents after discharging from the transitional care/swing bed program and then returning home to her previous routine. The patient's mother explained that she would resume those services when the patient is able to return home. At this time the patient's mother did not feel that a care conference needed to be scheduled as the patient's length of stay in the transitional care/swing bed program would be for a short period of time. This Social Workeralso put a copy of the patient's healthcare directive and conservatorship papers in her medical chart. Sadiq Falcon/erin Electronically Signed By: AUDREY HENDRIX On: 02/23/2016 04:05 PM Modified by and Electronically Signed by: AUDREY HENDRIX On: 02/23/2016 04:05 PM Source: [facility] MHSDOLBEYNONRADSYS Document Id: [id number] Ana Jonas - 02/21/2016 11:08 PM CDT PRN Response PRN Response Entered On: 02/21/2016 23:53 CDT Performed On: 02/21/2016 23:08 CDT by ANA JONAS RN Intervention Information: tramadol Performed by ANA JONAS RN on 02/21/2016 22:08:00 CDT traMADol,50mg PO,Pain PRN Medication Effectiveness Evaluation PRN Medication Effective : Yes Post Medication Pain Assessment : N/A ANA JONAS RN - 02/21/2016 23:53 CDT Source: [facility] POWERCHART Document Id: [id number] CDT!4 Arash Fajardo M.S., M.S.N., R.N. - 02/21/2016 7:34 PM CDT Swingbed ADLs-How much help does the patient need to_ Wash_minimal upper body, maximal lower body Dress_moderatelower body, minimal upper body Mouth care/dentures_indep Shower/bath_moderate Transfer assistance_SBA Ambulate and distance_62 meters x 3 Bowel and Bladder _ Continent or incontinent_continent Wear adult briefs_NA Assistance needed with toileting_Wiping Medications or procedures (scanning, training, meds, cat)_ Activities_ Offered and how much time did they spend on it_tv most of the shift, visiting with family several hours, card playing/listening to music 2 hours Positioning/chair time/offloading/pressure relief_in bed 12 hours Therapies_ Walking program/ROM_amb 3x/day Special equipment (CPM, sling, brace)_ Appetite_ Dietary needs/orders (textures, supplements, adaptive equipment/restriction)_NA Assistance with eating_NA Amount of supplements completed_NA Behavior_ Behaviors and what are they_ Alarms_bed alarmed precautionary for cognitive delay Memory difficulties_NA Sleeping difficulties and how well do they sleep_NA Wounds/skin care_ Summary of Dressing changes_NA Skin Breakdown_areas of psoriasis on elbows, buttocks Oxygen use_NA New or chronic oxygen use_ Liters needed_ Attempts to wean (Oxygen sats with and without oxygen, at rest and with activity)_ PICC or peripheral line_ Dressing appearance_PIV changed for site 3 days old Dressing change_ Problems with flushing or drawing from line_NA Isolation Needs_ Yes/No_No Type_ Education_ What is the education need_infection prevention Who needs the education_pt How is education going and what are the barriers, if any_cognitive delay Electronically Signed By: ARASH FAJARDO RN On: 02/21/2016 07:38 PM Source: [employer] Document Id: [id number] Arash Fajardo M.S., M.S.N., R.N. - 02/21/2016 5:27 PM CDT PRN Response PRN Response Entered On: 02/21/2016 17:27 CDT Performed On: 02/21/2016 17:27 CDT by ARASH FAJARDO RN Intervention Information: tramadol Performed by ARASH FAJARDO RN on 02/21/2016 15:29:00 CDT traMADol,50mg PO,Pain PRN Medication Effectiveness Evaluation PRN Medication Effective : Yes ARASH FAJARDO RN - 02/21/2016 17:27 CDT Source: [employer] Document Id: [id number] CDT!3 Arash Fajardo M.S., M.S.N., R.N. - 02/21/2016 12:26 PM CDT PRN Response PRN Response Entered On: 02/21/2016 12:26 CDT Performed On: 02/21/2016 12:26 CDT by ARASH FAJARDO RN Intervention Information: tramadol Performed by ARASH FAJARDO RN on 02/21/2016 10:48:00 CDT traMADol,50mg PO,Pain PRN Medication Effectiveness Evaluation PRN Medication Effective : Yes Post Medication Pain Assessment : 5 ARASH FAJARDO RN - 02/21/2016 12:26 CDT Source: [employer] Document Id: [id number] CDT!4 Arash Fajardo M.S., M.S.N., R.N. - 02/21/2016 9:10 AM CDT Protocol Vascular Access Adult Protocol Vascular Access Adult Entered On: 02/21/2016 9:10 CDT Performed On: 02/21/2016 9:10 CDT by ARASH FAJARDO RN Vascular Access Adult Protocol Age 15 years or older Adult Protocol : Yes Vascular Access Device Adult : Yes Exclusion Criteria Adult Vascular Access Protocol : Patient has none of the below exclusions Vascular Access Protocol Status Adult : Criteria Met ARASH FAJARDO RN - 02/21/2016 9:10 CDT Source: [employer] Document Id: [id number] CDT!6 Meli Garza R.N. - 02/21/2016 8:06 AM CDT transition to swing bed Dorita arenas'd from acute care encounter and admitted to TCU for continued antibiotics for cellulitis. Electronically Signed By: MELI GARZA RN On: 02/21/2016 01:06 PM Source: [employer] Document Id: [id number] documented in this encounter Miscellaneous Notes Miscellaneous - Conversion, Historical Provider Ser - 02/27/2016 10:45 AM CDT Coding Summary-Paper Based CODING DATE: 03/04/2016 FINAL [place] [facility] STATUS: * Discharged to Home or Self Care PAYOR: Medicare Advantage Grouper: 603 MS-DRG Cellulitis w/o [facility] DX: L03.115 Cellulitis of right lower limb REASON FOR VISIT DX: FINAL DX: PRINCIPAL: L03.115 Y Cellulitis of right lower limb SECONDARY: N28.9 Y Disorder of kidney and ureter, unspecified Z79.01 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 However, the narrative phrase printed from the coding software may appear abbreviated, or result in slightly different terminology. Coded By: SALO GARCIA Date Saved: 03/04/2016 09:18 am Source: [employer] Document Id: [id number] Miscellaneous - Bella Drummond, Pharm.D., R.Ph. - 02/27/2016 9:53 AM CDT Anticoagulation Patient Intake Anticoagulation Patient Intake Entered On: 02/27/2016 9:55 CDT Performed On: 02/27/2016 9:53 CDT by BELLA DRUMMOND PHARMD Plan INR goal range : 2.0 - 3.0 Duration of Therapy : Lifelong Tablet Size : 2 mg, 5 mg BELLA DRUMMOND PHARMD - 02/27/2016 9:53 CDT Anticoagulation Management Plan Grid Date : [...] Plan completed by : darya BURGESS JM BELLA Evangelista PHARMD - 02/27/2016 9:53 CDT BELLA DRUMMOND PHARMD - 02/27/2016 9:53 CDT BELLA DRUMMOND PHARMD - 02/27/2016 9:53 CDT BELLA DRUMMOND PHARMD - 02/27/2016 9:53 CDT Date : 12/26/2013 CDT 01/30/2014 CDT [...] 03/10/2014 Other: 03/20/14 Plan completed by : PATRICE lackey BELLA DRUMMOND PHARMD - 02/27/2016 9:53 CDT BELLA DRUMMOND PHARMD - 02/27/2016 9:53 CDT BELLA DRUMMOND PHARMD - 02/27/2016 9:53 CDT BELLA DRUMMOND PHARMD - 02/27/2016 9:53 CDT Date : 03/20/2014 CDT 03/27/2014 CDT [...] try dec as noted Called to mom, nocgosiages to meds has been drinking grape juice. no bleeding. no vitamin K per Dr. Duarte. dose consultwith Agatha Hopkins/Pharmacy. instructed to be seen if bleeding occurs. called mom, Recommend Recheck : One week Two weeks Two days One day, Other: Plan completed by : darya lackey [facility]/pharmacy BELLA DRUMMOND PHARMD - 02/27/2016 9:53 CDT BELLA DRUMMOND PHARMD - 02/27/2016 9:53 CDT BELLA DRUMMOND PHARMD - 02/27/2016 9:53 CDT BELLA DRUMMOND PHARMD - 02/27/2016 9:53 CDT Date : 04/17/2014 CDT 04/24/2014 CDT 05/01/2014 HELP DESK TEAM LEADER 05/15/2014 HELP DESK TEAM LEADER Location of INR sample : Lab Lab [...] will trynoted dose called to mom Fabiola [id number] called to Fabiola/no changes Called to mother/Fabiola, not awareof any changes Recommend Recheck : One week One week Two weeks Two weeks Plan completed by : BELLA CASEY PHARMD - 02/27/2016 9:53 CDT BELLA DRUMMOND PHARMD - 02/27/2016 9:53 CDT BELLA DRUMMOND PHARMD - 02/27/2016 9:53 CDT BELLA DRUMMOND PHARMD - 02/27/2016 9:53 CDT Date : 06/03/2014 HELP DESK TEAM LEADER 06/05/2014 HELP DESK TEAM LEADER 06/10/2014 HELP DESK TEAM LEADER 06/11/2014 HELP DESK TEAM LEADER Location of INR sample : Lab Type [...] to surgery (06/06) with no bridging. Called Diane. roberta Dorita will be staying in [place] 2wks post-surgery & have INR drawn there. [...] lovenox tomorrow AM as ordered. INR in [place] for next several weeks as pt will be recovering there. Recommend Recheck : Other: depending on Dr. Henriquez's preop. Other: 06/18 Other: 06/13/14 Plan completed by : BELLA ABREU PHARMD - 02/27/2016 9:53 CDT BELLA DRUMMOND PHARMD - 02/27/2016 9:53 CDT BELLA DRUMMOND PHARMD - 02/27/2016 9:53 CDT BELLA DRUMMOND PHARMD - 02/27/2016 9:53 CDT Date : 06/14/2014 HELP DESK TEAM LEADER 06/14/2014 HELP DESK TEAM LEADER 06/16/2014 HELP DESK TEAM LEADER 06/23/2014 HELP DESK TEAM LEADER Location of INR sample : Clinic Lab Lab Type of Sample : Venous Venous INR Result : 1.3 on 06/13 2.4 faxed from lab 2.0 Warfarin Dose : (pt took 2.5mg 06/13) 5mg Sat and 5mg Sun (06/14 and 06/15) 5mg Mon and 2.5mg all other days 5mg Mon and 2.5mg all other days Total Weekly Warfarin Dose : 20 20 Comment : [place] lab called with INR result from 06/13, reported they left a message with Dr. Henriquez and hadn't heard back, spoke with motherFabiola, and gave doses, continue Lovenox and repeat INR 06/16, message left with INR clinic in [place] to contact CF Please contact [place] lab on 06/16 for result and may call Fabiola at [phone] with instructions call to Fabiola/will stop Lovenox injections and take noted dose/pt has an appt here in 06/23 so will do lab appt here that day Called to Fabiola/ Dorita will be back at [facility] by next draw. will have done on . no changes to meds/diet. Recommend Recheck : Two days One week Two weeks Plan completed by : BELLA Sam LM PHARMD - 02/27/2016 9:53 CDT BELLA DRUMMOND PHARMD - 02/27/2016 9:53 CDT BELLA DRUMMOND PHARMD - 02/27/2016 9:53 CDT BELLA DRUMMOND PHARMD - 02/27/2016 9:53 CDT Date : 07/10/2014 HELP DESK TEAM LEADER 07/17/2014 HELP DESK TEAM LEADER 07/31/2014 HELP DESK TEAM LEADER 09/11/2014 CDT Location of INR sample : [...] weeks Two weeks Plan completed by : BELLA Pascual PHARMD - 02/27/2016 9:53 CDT BELLA DRUMMOND PHARMD - 02/27/2016 9:53 CDT BELLA DRUMMOND PHARMD - 02/27/2016 9:53 CDT BELLA DRUMMOND PHARMD - 02/27/2016 9:53 CDT Date : 09/12/2014 CDT 09/25/2014 CDT [...] doses Called to Mom/Fabiola, no changes, rev'd w/Kerryrsen/Pharmacy called to Mom/Fabiola, no changes Recommend Recheck : Two weeks One week One week Two weeks Plan completed by : BELLA Garzon PHARMD - 02/27/2016 9:53 CDT BELLA DRUMMOND PHARMD - 02/27/2016 9:53 CDT BELLA DRUMMOND PHARMD - 02/27/2016 9:53 CDT BELLA DRUMMOND PHARMD - 02/27/2016 9:53 CDT Date : 10/23/2014 CDT 11/13/2014 CDT [...] is she is 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 Sanivation/no bleeding/consult with Quintin/Pharmacy and called Mom with orders Per Meredith Hernandez, no changes, has been drinking some Kiwi Juice, no bleeding/consult with Quintin/Pharmacy Called to mom /Fabiola, no changes, rev'd w/BCarbria/Pharmacy Recommend Recheck : Three weeks One week One week One week Plan completed by : BELLA Haywood PHARMD - 02/27/2016 9:53 CDT BELLA DRUMMOND PHARMD - 02/27/2016 9:53 BELLA MAO PHARMD - 02/27/2016 9:53 CDT BELLA DRUMMOND PHARMD - 02/27/2016 9:53 CDT Date : 12/04/2014 CDT 12/18/2014 CDT [...] week Two weeks Plan completed by : BELLA Bush PHARMD - 02/27/2016 9:53 CDT BELLA DRUMMOND PHARMD - 02/27/2016 9:53 PATRICIAT BELLA DRUMMOND PHARMD - 02/27/2016 9:53 CDT BELLA DRUMMOND PHARMD - 02/27/2016 9:53 CDT Date : 02/05/2015 CDT 02/26/2015 CDT [...] weeks Three weeks Plan completed by : BELLA GOMEZ PHARMD - 02/27/2016 9:53 CDT BELLA DRUMMOND PHARMD - 02/27/2016 9:53 CDT BELLA DRUMMOND PHARMD - 02/27/2016 9:53 CDT BELLA DRUMMOND PHARMD - 02/27/2016 9:53 CDT Date : 04/09/2015 CDT 05/07/2015 HELP DESK TEAM LEADER 06/04/2015 HELP DESK TEAM LEADER 07/02/2015 HELP DESK TEAM LEADER Location of INR sample : Lab Lab [...] Other: 5 weeks Plan completed by : BELLA Cortez PHARMD - 02/27/2016 9:53 CDT BELLA DRUMMOND PHARMD - 02/27/2016 9:53 CDT BELLA DRUMMOND PHARMD - 02/27/2016 9:53 CDT BELLA DRUMMOND PHARMD - 02/27/2016 9:53 CDT Date : 08/06/2015 HELP DESK TEAM LEADER 09/17/2015 CDT 10/29/2015 CDT 11/12/2015 CDT Location [...] weeks One week Plan completed by : BELLA Shah PHARMD - 02/27/2016 9:53 CDT BELLA DRUMMOND PHARMD - 02/27/2016 9:53 CDT BELLA DRUMMOND PHARMD - 02/27/2016 9:53 CDT BELLA DRUMMOND PHARMD - 02/27/2016 9:53 CDT Date : 11/19/2015 CDT 12/03/2015 CDT [...] month One month Plan completed by : BELLA Ravi PHARMD - 02/27/2016 9:53 CDT BELLA DRUMMOND PHARMD - 02/27/2016 9:53 CDT BELLA DRUMMOND PHARMD - 02/27/2016 9:53 CDT BELLA DRUMMOND PHARMD - 02/27/2016 9:53 CDT Date : 02/19/2016 CDT 02/20/2016 CDT [...] Tyshawn Brizuela, Pharm.DMichael Brizuela PharmMichaelDMichael ASTUDILLO, PharmD PharmD. JOVANNY Leon MICHAEL D. PHARMD - 02/27/2016 9:53 CDT BELLA DRUMMOND PHARMD - 02/27/2016 9:53 CDT BELLA DRUMMOND PHARMD - 02/27/2016 9:53 CDT BELLA DRUMMOND PHARMD - 02/27/2016 9:53 CDT Date : 02/23/2016 CDT 02/24/2016 CDT [...] by : Eliseo Quezada, PharmValentina. Eliseo Quezada, PharmValentina. Tyshawn Brizuela, Pharm.DMichael Quezada, PharmD. BELLA DRUMMOND PHARMD - 02/27/2016 9:53 CDT BELLA DRUMMOND PHARMD - 02/27/2016 9:53 CDT BELLA DRUMMOND PHARMD - 02/27/2016 9:53 CDT BELLA DRUMMOND PHARMD - 02/27/2016 9:53 CDT Date : 02/27/2016 CDT Location of INR sample : Hospital Type of Sample : Venous INR Result : 2.07 Warfarin Dose : 2 mg daily Total Weekly Warfarin Dose : Comment : Pt being discharged on Bactrim. 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 : DVT Lower, Other: Deep Phlebitis-Leg NEC CHADS2 Score Date : 09/05/2013 CDT BELLA DRUMMOND PHARMD - 02/27/2016 9:53 CDT Changes / Problems Been Scheduled For : Physician Visits Change In Medication : Antibiotic BELLA DRUMMOND PHARMD - 02/27/2016 9:53 CDT [email or web address] Document Id: [id number] CDT!623 Miscellaneous - Lamont Watersvin Boyce - 02/27/2016 8:51 AM CDT Hospital Patient Education The following Patient Education Materials have been given to the patient: Patient Education Materials: Ambulatory CELLULITIS [facility] Preventing Falls in the Home Ambulatory Cellulitis You have an infection of the [...] of pus or drainage -- Fever over 100.4?? F (38.0?? C) oral, or over 101.4?? F (38.6 C) rectal, after two days on antibiotics ?? [id number] [place] [address]. All rights reserved. This information is not intended as a substitute for professional medical care. Always follow your healthcare professional's instructions. Senior Health Preventing Falls in the Home As you get older, falls are more likely. Thats because your reaction time slows. Your muscles and joints may also get stiffer, making them less flexible. Illness, medications, and vision changes can also affect your balance. A fall could leave you unable to live on your own. To make your home safer, follow these tips: Floors ?? Put nonskid pads under area rugs. ?? Remove throw rugs. ?? Replace worn floor coverings. ?? Tack carpets firmly to each step on carpeted stairs. Put nonskid strips on the edges of uncarpeted stairs. ?? Keep floors and stairs free of clutter and cords. ?? Arrange furniture so there are clear pathways. ?? Clean up any spills right away. Bathrooms ?? Install grab bars in the tub or shower. ?? Apply nonskid strips or put a nonskid rubber mat in the tub or shower. ?? Sit on a bath chair to bathe. ?? Use bathmats with nonskid backing. Lighting ?? Keep a flashlight in each room. ?? Put a nightlight along the pathway between the bedroom and the bathroom. ?? [place] [address]. All rights reserved. This information is not intended as a substitute for professional medical care. Always follow your healthcare professional's instructions. This document has images extracted. Please consider using [employer] for all your patient education needs. Source: [facility] TapTrak Document Id: [id number] Miscelllucian - Whit Thornton C.NEstrella - 02/27/2016 8:00 AM CDT Adult Activities of Daily Living Adult Activities of Daily Living Entered On: 02/27/2016 12:48 CDT Performed On: 02/27/2016 8:00 CDT by WHIT THORNTONNEstrella ADLs I Ambulation Distance : 68 m(Converted to: 223 ft 1 inch(es), 6,800 cm) WHIT THORNTONNEstrella - 02/27/2016 12:48 CDT ADLs II Bowel Movement Last Date : 02/25/2016 CDT WHIT THORNTONNEstrella - 02/27/2016 12:48 CDT Source: [email or web address] Document Id: [id number] CDT!5 Miscellaneous - Jenny Abreu, RMichaelNMichael - 02/27/2016 8:00 AM CDT Adult Ongoing Assessment Document Has Been Updated Adult Ongoing Assessment Entered On: 02/27/2016 14:27 CDT Performed On: 02/27/2016 8:00 CDT by JENNY ABREU RN Respiratory Respiratory Patient Stated Symptoms : None Respirations : Unlabored Distress : None Respiratory Pattern : Regular All Lobes Breath Sounds : Clear Cough and Deep Breathe : Done Cough : None Sputum Amount : None Airway : Patent JENNY ABREU RN - 02/27/2016 14:19 CDT Cardiovascular CV Patient Stated Symptoms : None Heart Rhythm : Regular Heart Sounds ICU : S1S2 Antiembolism Device Yes/No : Yes Nail Bed Color : Meraux Capillary Refill : Less than 2 seconds Edema Assessment : Yes JENNY ABREU RN - 02/27/2016 14:19 CDT Radial Pulse, Left : 2+ Normal Radial Pulse, Right : 2+ Normal Posttibial Pulse, Left : 2+ Normal Posttibial Pulse, Right : 2+ Normal Dorsalis Pedis Pulse, Left : 2+ Normal Dorsalis Pedis Pulse, Right : 2+ Normal JENNY ABREU RN - 02/27/2016 14:19 CDT Skin Color : Normal for ethnicity Skin Description : Dry Skin Temperature : Warm Activity Tolerance : Without distress JENNY ABREU Stoney RN - 02/27/2016 14:19 CDT Edema Details Edema Detailed Grid Ankle Edema Pedal Edema Right : 1+ trace/2mm 1+ trace/2mm JENNY ABREU RN - 02/27/2016 14:19 CDT JENNY ABREU RN - 02/27/2016 14:19 CDT Antiembolism Device Antiembolism Device : Sequential Compression Device Antiembolism Device Laterality : Left Antiembolism Device Removal Reason : Activity, ADL care JENYN ABREU RN - 02/27/2016 14:19 CDT Neurological Neuro Patient Stated Symptoms : None Orientation : Oriented x 3 Level of Consciousness : Alert Gait : Steady Swallowing Difficulty/Aspiration Risk : None Last Well Time Known : No JENNY ABREU RN - 02/27/2016 14:19 CDT Henley Coma Eye Opening Response Kathleen : Spontaneously Best Verbal Response Kathleen : Oriented Best Motor Response Henley : Obeys simple commands Henley Coma Score : 15 JENNY ABREU Stoney MARCUS - 02/27/2016 14:19 CDT Oral Assessment Lips : Smooth, pink, moist, intact Gingiva : Meraux, smooth, moist, intact Tongue : Smooth, pink, moist, intact Teeth : Clean, no debris Saliva : Thin, watery, plentiful JENNY ABREU RN - 02/27/2016 14:19 CDT Psycho/Emotional Affect/Behavior : Calm, Cooperative, Appropriate Pain Symptoms : No Feels Rested : Yes JENNY ABREU RN - 02/27/2016 14:19 CDT Gastrointestinal GI Patient Stated Symptoms : None Abdomen Description : Rounded Abdomen Palpation : Non-Tender, Soft Bowel Movement Last Date : 02/25/2016 CDT Bowel Sounds All Quadrants : Present JENNY ABREU RN - 02/27/2016 14:19 CDT Nutrition Appetite : Good Eating Difficulties : None Feeding Ability : Complete independence JENNY ABREU RN - 02/27/2016 14:19 CDT Genitourinary Patient Stated Symptoms : None Urinary Elimination : Voiding, no difficulties Urine Color : Yellow Urine Description : Clear JENNY ABREU - 02/27/2016 14:19 CDT Integumentary Integumentary Patient Stated Symptoms : None Skin Turgor : Elastic Skin Integrity : Intact Mucous Membrane Color : Meraux Mucous Membrane Description : Moist JENNY ABREU RN - 02/27/2016 14:19 CDT Skin Abnormality/Location Grid Location : Lower leg Other: all over body, arms, butt, legs Laterality : Right Abnormality : Excoriation, Flaking, Other: tight Other: psoriasis Comments (Comment: No open areas noted. [JENNY ABREU - 02/27/2016 14:28 CDT] ) (Comment: No open areas noted. [JENNY ABREU - 02/27/2016 14:28 CDT] ) JENNY ABREU - 02/27/2016 14:19 CDT JENNY ABREU - 02/27/2016 14:19 CDT Skin Color : Normal for ethnicity Skin Description : Dry Skin Temperature : Warm JENNY ABREU - 02/27/2016 14:19 CDT Incision/Wound Incision/Wound Care Grid Activity : Assessed Wound Type : Other: cellulitis Location : Lower leg Laterality : Right Description : Other: Reddness not exceeding markings. Color : Red Drainage : None Drainage Amount : None Surrounding Tissue : Intact Wound Dressing : Open to air JENNY ABREU - 02/27/2016 14:19 CDT Mando Sensory Perception Mando : Slightly limited Moisture Mando : Occasionally moist Activity Mando : Walks occasionally JENNY ABREU ANGELINE - 02/27/2016 14:19 CDT Mobility Mando : No limitations JENNY ABREU - 02/27/2016 14:58 CDT Nutrition Mando : Adequate Friction and Shear Mando : No apparent problem JENNY ABREU ANGELINE - 02/27/2016 14:19 CDT Mando Score : 19 JENNY ABREU RN - 02/27/2016 14:58 CDT Musculoskeletal Musculoskeletal Patient Stated Symptoms : None Activity Tolerance : Without distress JENNY ABREU RN - 02/27/2016 14:19 CDT Musculoskeletal Note : Pt ambulates assist of one gait belt and walker. JENNY ABREU RN - 02/27/2016 14:28 CDT Peripheral IV Peripheral IV Assess/Intervention Grid Peripheral IV #1 Peripheral IV #2 Peripheral IV #3 IV Activity : Start Removal : Catheter intact, Hemostasis within expected timeframe Catheter intact, Hemostasis within expected timeframe Date of Insertion : 02/25/2016 CDT 02/21/2016 CDT 02/23/2016 CDT Discontinued Date : 02/23/2016 CDT 02/25/2016 CDT IV Site : Antecubital Wrist Forearm Laterality : Left Left Left Catheter Size : 20 20 22 Catheter Type : Over the needle Over the needle Site Condition : No complications Drainage Description : None Dressing/ Activity : Dry, Intact Flow/ Patency : No complications JENNY ABREU RN - 02/27/2016 14:28 CDT JENNY ABREU RN - 02/27/2016 14:28 CDT JENNY ABREU RN - 02/27/2016 14:28 CDT Hendrich II Fall Risk Confusion/Disorientation Hendrich [...] Fall Risk Score Hendrich II : 1 JENNY ABREU RN - 02/27/2016 14:28 CDT Safe Patient Handling Safe Pt Handling Independent : No Safe Pt Handling Supervision/Minimal Assistance : Yes - Unmotorized Equipment Safe Pt Handling Equipment Rec : Unmotorized Equipment Repositioning Device Recommended : No JENNY ABREU RN - 02/27/2016 14:28 CDT Education General Patient Education [employer] Topics : Safety, fall, Use of pain scale(s) Individuals Taught : Patient Barriers to Learning : None evident Teaching Method : Explanation Teaching Evaluation : Verbalizes understanding JENNY ABREU RN - 02/27/2016 14:28 CDT Source: [employer] POWERCHART Document Id: [id number] CDT!4 Miscellaneous - Rustam Chapin V C.N.A. - 02/26/2016 9:31 PM CDT Adult Activities of Daily Living Adult Activities of Daily Living Entered On: 02/26/2016 21:32 CDT Performed On: 02/26/2016 21:31 CDT by RUSTAM CHAPIN CNA ADLs II Hygiene Assistance Grid Bed Bath : Minimum assistance Foot Care : Minimum assistance Hair Care : Minimum assistance Oral Care : Independent Leeanna Care : Minimum assistance RUSTAM CHAPIN CNA - 02/26/2016 21:31 CDT Bowel Movement Last Date : 02/25/2016 CDT Standard Safety : Bed in low position, Call device within reach RUSTAM CHAPIN CNA - 02/26/2016 21:31 CDT Source: [employer] Document Id: [id number] CDT!10 Miscellaneous - Sabrina Barrios R.N. - 02/26/2016 9:29 PM CDT Adult Ongoing Assessment Document Has Been Updated Adult Ongoing Assessment Entered On: 02/26/2016 21:37 CDT Performed On: 02/26/2016 21:29 CDT by SABRINA BARRIOS RN Respiratory Respiratory Patient Stated Symptoms : None Respirations : Unlabored Distress : None Respiratory Pattern : Regular All Lobes Breath Sounds : Clear Cough : None Sputum Amount : None Suction : None Airway : Patent SABRINA BARRIOS RN - 02/26/2016 21:29 CDT Cardiovascular CV Patient Stated Symptoms : None Heart Rhythm : Regular Heart Sounds ICU : S1S2 Antiembolism Device Yes/No : Yes Nail Bed Color : Meraux Capillary Refill : Less than 2 seconds Edema Assessment : Yes SABRINA BARRIOS RN - 02/26/2016 21:29 CDT Dorsalis Pedis Pulse, Left : 2+ Normal Dorsalis Pedis Pulse, Right : 2+ Normal SABRINA BARRIOS RN - 02/26/2016 21:29 CDT Skin Color : Normal for ethnicity Skin Description : Normal Skin Temperature : Warm Activity Tolerance : Without distress SABRINA BARRIOS - 02/26/2016 21:29 CDT Edema Details Edema Detailed Grid Ankle Edema Pedal Edema Pretibial Edema Right : 1+ trace/2mm 1+ trace/2mm CHRISTYKARINSABRINA RN - 02/26/2016 21:29 CDT SABRINA BARRIOS - 02/26/2016 21:29 CDT CHRISTYKARINSABRINA - 02/27/2016 0:42 CDT Antiembolism Device Antiembolism Device : Sequential Compression Device Antiembolism Device Laterality : Left Antiembolism Device Status : On Anti Embolism Devices Time Applied : 02/26/2016 21:33 CDT SABRINA BARRIOS RN - 02/26/2016 21:29 CDT Neurological Neuro Patient Stated Symptoms : None Orientation : Oriented x 3 Level of Consciousness : Alert Gait : Steady Swallowing Difficulty/Aspiration Risk : None SABRINA BARRIOS RN - 02/26/2016 21:29 CDT Kathleen Coma Eye Opening Response Kathleen : Spontaneously Best Verbal Response Kathleen : Oriented Best Motor Response Henley : Obeys simple commands Henley Coma Score : 15 CHRISTYSABRINA FRAZIER - 02/26/2016 21:29 CDT Psycho/Emotional Feels Rested : Yes SABRINA BARRIOS - 02/27/2016 1:48 CDT Affect/Behavior : Calm, Cooperative, Appropriate Pain Symptoms : Yes SABRINA BARRIOS RN - 02/26/2016 21:29 CDT Coping Grid Stable mood with appropriate affect : Yes Family supportive and involved in care : Yes SABRINA BARRIOS RN - 02/26/2016 21:29 CDT Safety Grid Vision, Hearing, Mobility Adequate to Meet Safety Needs : Yes SABRINA BARRIOS - 02/26/2016 21:29 CDT Pain Scale Pain Scale Verbal 0-10 : Open SABRINA BARRIOS RN - 02/26/2016 21:29 CDT Pain Pain Assessment Grid Pain 1 Location : Lower leg Laterality : Right Intensity : 6 Acceptable Intensity : 4 SABRINA BARRIOS RN - 02/26/2016 21:29 CDT Gastrointestinal GI Patient Stated Symptoms : None Abdomen Description : Rounded, Symmetric Abdomen Palpation : Non-Tender Bowel Movement Last Date : 02/25/2016 CDT Bowel Sounds All Quadrants : Present SABRINA BARRIOS E RN - 02/26/2016 21:29 CDT Genitourinary Patient Stated Symptoms : None Urinary Elimination : Voiding, no difficulties Urine Color : Yellow Urine Description : Clear CHRISTYKARINSABRINA RN - 02/26/2016 21:29 CDT Integumentary Integumentary Patient Stated Symptoms : None Skin Turgor : Elastic Skin Integrity : Intact Mucous Membrane Color : Meraux Mucous Membrane Description : Moist SABRINA BARRIOS RN - 02/26/2016 21:29 CDT Skin Abnormality/Location Grid Location : Lower leg Other: all over body, arms, butt, legs Laterality : Right Abnormality : Excoriation, Flaking, Other: tight Other: psoriasis Treatment : Lotion Lotion SABRINA BARRIOS RN - 02/26/2016 21:29 CDT SABRINA BARRIOS RN - 02/26/2016 21:29 CDT Skin Color : Normal for ethnicity Skin Description : Normal Skin Temperature : Warm SABRINA BARRIOS RN - 02/26/2016 21:29 CDT Incision/Wound Incision/Wound Care Grid Activity : Assessed Wound Type : Other: cellulitis Location : Lower leg Laterality : Right Description : Edematous, High risk area - skin intact SABRINA BARRIOS RN - 02/27/2016 1:53 CDT Drainage : None Surrounding Tissue : Intact, No signs or symptoms of localized infection Wound Dressing : Open to air SABRINA BARRIOS RN - 02/26/2016 21:29 CDT Mando Sensory Perception Mando : No impairment Moisture Mando : Rarely moist Activity Mando : Walks frequently Mobility Mando : No limitations Nutrition Mando : Excellent Friction and Shear Mando : No apparent problem Mando Score : 23 SABRINA BARRIOS RN - 02/26/2016 21:29 CDT Peripheral IV Peripheral IV Assess/Intervention Grid Peripheral IV #1 Peripheral IV #2 Peripheral IV #3 IV Activity : Assessment SABRINA BARRIOS RN - 02/27/2016 1:53 CDT SABRINA BARRIOS RN - 02/27/2016 1:53 CDT Removal : Catheter intact, Hemostasis within expected timeframe Catheter intact, Hemostasis within expected timeframe Date of Insertion : 02/25/2016 CDT 02/21/2016 CDT 02/23/2016 CDT Discontinued Date : 02/23/2016 CDT 02/25/2016 CDT IV Site : Antecubital Wrist Forearm SABRINA BARRIOS RN - 02/27/2016 1:53 CDT Laterality : Left Left Left Catheter Size : 20 20 22 Catheter Type : Over the needle Over the needle Site Condition : No complications SABRINA BARRIOS RN - 02/27/2016 1:53 CDT No complications Infiltration Score : 0 SABRINA BARRIOS RN - 02/27/2016 1:53 CDT 0 Phlebitis Score : 0 SABRINA BARRIOS RN - 02/27/2016 1:53 CDT 0 Dressing/ Activity : Dry, Intact, Transparent Flow/ Patency : No complications SABRINA BARRIOS RN - 02/27/2016 1:53 CDT No complications SABRINA BARRIOS RN - 02/26/2016 21:29 CDT SABRINA BARRIOS RN - 02/26/2016 21:29 CDT SABRINA BARRIOS RN - 02/26/2016 21:29 CDT Hendrich II Fall Risk Confusion/Disorientation Hendrich [...] Risk Score Hendrich II : 1 SABRINA BARRIOS RN - 02/26/2016 21:29 CDT Safe Patient Handling Safe Pt Handling Independent : No Safe Pt Handling Supervision/Minimal Assistance : Yes - Unmotorized Equipment Safe Pt Handling Equipment Rec : Unmotorized Equipment SABRINA BARRIOS RN - 02/26/2016 21:29 CDT Education General Patient Education Powergrid Topics : Activity limitations/expectations, Medication dosage, route, scheduling, Medication generic/brand names, purpose, action, Pain Management, Plan of care, Safety, fall Individuals Taught : Patient Barriers to Learning : Cognitive deficit Teaching Method : Explanation Teaching Evaluation : Needs reinforcement, Verbalizes understanding SABRINA BARRIOS RN - 02/26/2016 21:29 CDT Source: [facility] POWERCHART Document Id: [id number] CDT!16 Miscellaneous - Sabrina Barrios R.N. - 02/26/2016 9:24 PM CDT Adult Activities of Daily Living Adult Activities of Daily Living Entered On: 02/26/2016 21:29 CDT Performed On: 02/26/2016 21:24 CDT by SABRINA BARRIOS RN ADLs I Patient Position : Elevate Heels off bed, Elevate head of bed 45 degrees, Sitting in bed Repositioning/Pressure Reducing Devices : Pillow SABRINA BARRIOS RN - 02/26/2016 21:24 CDT ADLs II Elimination Assistance Offered Q2H : Offered/Performed Bowel Movement Last Date : 02/25/2016 CDT Standard Safety : Bed in low position, Call device within reach, Rounds every 2 hours, Upper/Half-length side-rails up, Wheels locked SABRINA BARRIOS RN - 02/26/2016 21:24 CDT I&O Oral Intake : 100 mL SABRINA BARRIOS RN - 02/26/2016 21:24 CDT ADLs Adult Nutrition Diet Type : Diet -- 02/21/16 13:31:00 CDT, General (No Restrictions) SABRINA BARRIOS RN - 02/26/2016 21:24 CDT Source: [employer] Document Id: [id number] CDT!12 Miscellaneous - Whit Thornton CMichaelNMichaelAMichael - 02/26/2016 4:46 PM CDT Adult Activities of Daily Living Adult Activities of Daily Living Entered On: 02/26/2016 16:47 CDT Performed On: 02/26/2016 16:46 CDT by WHIT THORNTONNEstrella ADLs II Hygiene Assistance Grid Leeanna Care : Maximum assistance Shower : Maximum assistance Upper Body Dressing(Clothing) : Maximum assistance Lower Body Dressing(Clothing) : Maximum assistance WHIT THORNTONNEstrella - 02/26/2016 16:46 CDT Bowel Movement Last Date : 02/25/2016 CDT Standard Safety : Bed in low position, Call device within reach, Non-Slip footwear WHIT THORNTONNEstrella - 02/26/2016 16:46 CDT Source: [employer] Document Id: [id number] CDT!9 Miscellaneous - Whit Thornton C.NEstrella - 02/26/2016 1:06 PM CDT Adult Activities of Daily Living Adult Activities of Daily Living Entered On: 02/26/2016 13:06 CDT Performed On: 02/26/2016 13:06 CDT by WHIT THORNTONNEstrella ADLs I Ambulation Distance : 68 m(Converted to: 223 ft 1 inch(es), 6,800 cm) WHIT THORNTON C.N.A. - 02/26/2016 13:06 CDT ADLs II Bowel Movement Last Date : 02/25/2016 CDT WHIT THORNTONNEstrella - 02/26/2016 13:06 CDT ADLs Adult Nutrition Diet Type : Diet -- 02/21/16 13:31:00 CDT, General (No Restrictions) WHIT THORNTONNEstrella - 02/26/2016 13:06 CDT [email or web address] Document Id: [id number] CDT!7 Enriquetacellaneous - Eliseo Quezada PharmMichaelD., R.Ph. - 02/26/2016 9:48 AM CDT Anticoagulation Patient Intake Anticoagulation Patient Intake Entered On: 02/26/2016 9:50 CDT Performed On: 02/26/2016 9:48 CDT by ELISEO QUEZADA Plan INR goal range : 2.0 - 3.0 Duration of Therapy : Lifelong Tablet Size : 5 mg ELISEO QUEZADA - 02/26/2016 9:48 CDT Anticoagulation Management Plan Grid Date : [...] weeks Two weeks Plan completed by : ELISEO Fonseca - 02/26/2016 9:48 CDT ELISEO QUEZADA - 02/26/2016 9:48 CDT ELISEO QUEZADA - 02/26/2016 9:48 CDT ELISEO QUEZADA - 02/26/2016 9:48 CDT Date : 12/26/2013 CDT 01/30/2014 CDT [...] 03/10/2014 Other: 03/20/14 Plan completed by : PATRICE lackey ELISEO QUEZADA - 02/26/2016 9:48 CDT ELISEO QUEZADA - 02/26/2016 9:48 CDT ELISEO QUEZADA - 02/26/2016 9:48 CDT ELISEO QUEZADA - 02/26/2016 9:48 CDT Date : 03/20/2014 CDT 03/27/2014 CDT [...] Other: Plan completed by : darya lackey [facility]/pharmacy HUMPHREYELISEO WARREN - 02/26/2016 9:48 CDT JATINELISEO WARREN Kennedy - 02/26/2016 9:48 CDT JATINBRIANAELISEO - 02/26/2016 9:48 CDT JATINBRIANAELISEO - 02/26/2016 9:48 CDT Date : 04/17/2014 CDT 04/24/2014 CDT 05/01/2014 HELP DESK TEAM LEADER 05/15/2014 HELP DESK TEAM LEADER Location of INR sample : Lab Lab [...] will trynoted dose called to mom Fabiola [phone] called to Fabiola/no changes Called to mother/Fabiola, not awareof any changes Recommend Recheck : One week One week Two weeks Two weeks Plan completed by : ELISEO WELCH - 02/26/2016 9:48 CDT ELISEO QUEZADA - 02/26/2016 9:48 CDT ELISEO QUEZADA - 02/26/2016 9:48 CDT ELISEO QUEZADA - 02/26/2016 9:48 CDT Date : 06/03/2014 HELP DESK TEAM LEADER 06/05/2014 HELP DESK TEAM LEADER 06/10/2014 HELP DESK TEAM LEADER 06/11/2014 HELP DESK TEAM LEADER Location of INR sample : Lab Type [...] (06/06) with no bridging. Called Fabiola granados. Dorita will be staying in [place] 2wks post-surgery & have INR drawn there. [...] lovenox tomorrow AM as ordered. INR in [place] for next several weeks as pt will be recovering there. Recommend Recheck : Other: depending on Dr. Henriquez's preop. Other: 06/18 Other: 06/13/14 Plan completed by : ELISEO GARSIA - 02/26/2016 9:48 CDT ELISEO QUEZADA - 02/26/2016 9:48 CDT ELISEO QUEZADA - 02/26/2016 9:48 CDT ELISEO QUEZADA - 02/26/2016 9:48 CDT Date : 06/14/2014 HELP DESK TEAM LEADER 06/14/2014 HELP DESK TEAM LEADER 06/16/2014 HELP DESK TEAM LEADER 06/23/2014 HELP DESK TEAM LEADER Location of INR sample : Clinic Lab Lab Type of Sample : Venous Venous INR Result : 1.3 on 06/13 2.4 faxed from lab 2.0 Warfarin Dose : (pt took 2.5mg 06/13) 5mg Sat and 5mg Sun (06/14 and 06/15) 5mg Mon and 2.5mg all other days 5mg Mon and 2.5mg all other days Total Weekly Warfarin Dose : 20 20 Comment : [place] lab called with INR result from 06/13, reported they left a message with Dr. Henriquez and hadn't heard back, spoke with mother, Fabiola, and gave doses, continue Lovenox and repeat INR 06/16, message left with INR clinic in to contact CF Please contact [place] lab on 06/16 for result and may call Fabiola at [phone] with instructions call to Fabiola/will stop Lovenox injections and take noted dose/pt has an appt here in 06/23 so will do lab appt here that day Called to Fabiola/ Dorita will be back at [facility] by next draw. will have done on . no changes to meds/diet. Recommend Recheck : Two days One week Two weeks Plan completed by : ELISEO Small LM - 02/26/2016 9:48 CDT ELISEO QUEZADA - 02/26/2016 9:48 CDT ELISEO QUEZADA - 02/26/2016 9:48 CDT NELSON ELISEO Benavides - 02/26/2016 9:48 CDT Date : 07/10/2014 HELP DESK TEAM LEADER 07/17/2014 HELP DESK TEAM LEADER 07/31/2014 HELP DESK TEAM LEADER 09/11/2014 CDT Location of INR sample : [...] weeks Two weeks Plan completed by : ELISEO Lloyd - 02/26/2016 9:48 CDT ELISEO QUEZADA - 02/26/2016 9:48 CDT ELISEO QUEZADA - 02/26/2016 9:48 CDT ELISEO QUEZADA - 02/26/2016 9:48 CDT Date : 09/12/2014 CDT 09/25/2014 CDT [...] week Two weeks Plan completed by : ELISEO Singer 02/26/2016 9:48 CDT JATINBRIANA ELISEO Kennedy - 02/26/2016 9:48 CDT HUMPHREYBRIANAELISEO - 02/26/2016 9:48 CDT HUMPHREYBRIANAELISEO - 02/26/2016 9:48 CDT Date : 10/23/2014 CDT 11/13/2014 CDT [...] is she is 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 Sanivation/no bleeding/consult with Quintin/Pharmacy and called Mom with orders Per Meredith Hernandez, no changes, has been drinking some Kiwi Juice, no bleeding/consult with Quintin/Pharmacy Called to mom /Fabiola, no changes, [facility] Recommend Recheck : Three weeks One week One week One week Plan completed by : darya YINBRIANAELISEO - 02/26/2016 9:48 CDT ELISEO QUEZADA - 02/26/2016 9:48 CDT ELISEO QUEZADA - 02/26/2016 9:48 CDT ELISEO QUEZADA - 02/26/2016 9:48 CDT Date : 12/04/2014 CDT 12/18/2014 CDT [...] week Two weeks Plan completed by : ELISEO De Dios - 02/26/2016 9:48 CDT ELISEO QUEZADA - 02/26/2016 9:48 CDT ELISEO QUEZADA - 02/26/2016 9:48 CDT ELISEO QUEZADA - 02/26/2016 9:48 CDT Date : 02/05/2015 CDT 02/26/2015 CDT [...] weeks Three weeks Plan completed by : ELISEO DURHAM - 02/26/2016 9:48 CDT ELISEO QUEZADA - 02/26/2016 9:48 CDT ELISEO QUEZADA - 02/26/2016 9:48 CDT ELISEO QUEZADA - 02/26/2016 9:48 CDT Date : 04/09/2015 CDT 05/07/2015 HELP DESK TEAM LEADER 06/04/2015 HELP DESK TEAM LEADER 07/02/2015 HELP DESK TEAM LEADER Location of INR sample : Lab Lab [...] Other: 5 weeks Plan completed by : ELISEO Reina - 02/26/2016 9:48 CDT ELISEO QUEZADA - 02/26/2016 9:48 CDT ELISEO QUEZADA - 02/26/2016 9:48 CDT ELISEO QUEZADA - 02/26/2016 9:48 CDT Date : 08/06/2015 HELP DESK TEAM LEADER 09/17/2015 CDT 10/29/2015 CDT 11/12/2015 CDT Location [...] weeks One week Plan completed by : ELISEO Feliciano - 02/26/2016 9:48 CDT ELISEO QUEZADA 02/26/2016 9:48 CDT ELISEO QUEZADA - 02/26/2016 9:48 CDT ELISEO QUEZADA - 02/26/2016 9:48 CDT Date : 11/19/2015 CDT 12/03/2015 CDT [...] month One month Plan completed by : ELISEO Taylor - 02/26/2016 9:48 CDT ELISEO QUEZADA 02/26/2016 9:48 CDT ELISEO QUEZADA - 02/26/2016 9:48 CDT ELISEO QUEZADA - 02/26/2016 9:48 CDT Date : 02/19/2016 CDT 02/20/2016 CDT 02/21/2016 CDT 02/22/2016 CDT Location of INR sample : [facility] Type of [...] Tyshawn Brizuela, Pharm.DMichael Brizuela, Pharm.D. BAUDILIO, PharmD Rea LeonDELISEO ROSENBAUM 02/26/2016 9:48 CDT ELISEO QUEZADA 02/26/2016 9:48 CDT ELISEO QUEZADA - 02/26/2016 9:48 CDT ELISEO QUEZADA - 02/26/2016 9:48 CDT Date : 02/23/2016 CDT 02/24/2016 CDT [...] completed by : Eliseo Quezada, PharmD. Eliseo Quezada PharmD. Tyshawn Brizuela Pharm.D. Eliseo Quezada PharmD. ELISEO QUEZADA - 02/26/2016 9:48 CDT ELISEO QUEZADA - 02/26/2016 9:48 CDT ELISEO QUEZADA - 02/26/2016 9:48 CDT ELISEO QUEZADA - 02/26/2016 9:48 CDT [facility]: [email or web address] Document Id: [id number] CDT!604 Miscellaneous - Tanya Kay, C.N.A. - 02/26/2016 8:54 AM CDT Adult Activities of Daily Living Adult Activities of Daily Living Entered On: 02/26/2016 8:54 CDT Performed On: 02/26/2016 8:54 CDT by TANYA KAY ADLs II Hygiene Assistance Grid Bed Bath : Minimum assistance Oral Care : Independent TANYA KAY - 02/26/2016 8:54 CDT Elimination Assistance Offered Q2H : Offered/Declined Bowel Movement Last Date : 02/25/2016 CDT TANYA KAY - 02/26/2016 8:54 CDT Source: [employer] Document Id: [id number] CDT!7 Miscellaneous - Tanya Kay C.N.A. - 02/26/2016 8:53 AM CDT Adult Activities of Daily Living Adult Activities of Daily Living Entered On: 02/26/2016 8:53 CDT Performed On: 02/26/2016 8:53 CDT by TANYA KAY ADLs I Activity Status ADL : Ambulating in preciado Assistive Device : Gait belt, Walker, Wheelchair Ambulation Distance : 40 m(Converted to: 131 ft 3 inch(es), 4,000 cm) Ambulation Patient Effort : Fair TANYA KAY - 02/26/2016 8:53 CDT Source: [employer] Document Id: [id number] CDT!6 Enriquetacelllucian - Jenny Abreu R.N. - 02/26/2016 8:00 AM CDT Adult Ongoing Assessment Document Has Been Updated Adult Ongoing Assessment Entered On: 02/26/2016 13:37 CDT Performed On: 02/26/2016 8:00 CDT by JENNY ABREU RN Respiratory Respiratory Patient Stated Symptoms : None Respirations : Unlabored Distress : None Respiratory Pattern : Regular All Lobes Breath Sounds : Clear Cough : None Sputum Amount : None Airway : Patent JENNY ABREU RN - 02/26/2016 13:30 CDT Cardiovascular Antiembolism Device Yes/No : Yes JENNY ABREU RN - 02/26/2016 14:44 CDT CV Patient Stated Symptoms : None Heart Rhythm : Regular Heart Sounds ICU : S1S2 Nail Bed Color : Meraux Capillary Refill : Less than 2 seconds JENNY ABREU RN - 02/26/2016 13:30 CDT Edema Assessment : Yes JENNY ABREU RN - 02/26/2016 14:44 CDT JENNY ABREU ANGELINE - 02/26/2016 14:44 CDT Radial Pulse, Left : 2+ Normal Radial Pulse, Right : 2+ Normal Posttibial Pulse, Left : 2+ Normal Posttibial Pulse, Right : 2+ Normal Dorsalis Pedis Pulse, Left : 2+ Normal Dorsalis Pedis Pulse, Right : 2+ Normal JENNY ABREU ANGELINE - 02/26/2016 13:30 CDT Skin Color : Normal for ethnicity Skin Description : Dry Skin Temperature : Warm Activity Tolerance : Without distress JENNY ABREU RN - 02/26/2016 13:30 CDT Edema Details Edema Detailed Grid Ankle Edema Pedal Edema Right : 1+ trace/2mm 1+ trace/2mm JENNY ABREU RN - 02/26/2016 14:44 CDT JENNY ABREU ANGELINE - 02/26/2016 14:44 CDT Antiembolism Device Antiembolism Device : Sequential Compression Device Antiembolism Device Laterality : Left Antiembolism Device Removal Reason : Activity, ADL care JENNY ABREU RN - 02/26/2016 14:44 CDT Neurological Neuro Patient Stated Symptoms : None Orientation : Oriented x 3 Level of Consciousness : Alert Gait : Steady Swallowing Difficulty/Aspiration Risk : None Last Well Time Known : No JENNY ABREU RN - 02/26/2016 13:30 CDT Henley Coma Eye Opening Response Kathleen : Spontaneously Best Verbal Response Henley : Oriented Best Motor Response Kathleen : Obeys simple commands Kathleen Coma Score : 15 JENNY ABREU ANGELINE - 02/26/2016 13:30 CDT Oral Assessment Lips : Smooth, pink, moist, intact Gingiva : Meraux, smooth, moist, intact Tongue : Smooth, pink, moist, intact Teeth : Clean, no debris Saliva : Thin, watery, plentiful JENNY ABREU RN - 02/26/2016 13:30 CDT Psycho/Emotional Affect/Behavior : Calm, Cooperative, Appropriate Pain Symptoms : Yes JENNY ABREU ANGELINE - 02/26/2016 13:30 CDT Pain Scale Pain Scale Verbal 0-10 : Open JENNY ABREU ANGELINE - 02/26/2016 13:30 CDT Pain Pain Assessment Grid Pain 1 Location : Lower leg Laterality : Right Intensity : 8 Aggravating Factors : Movement Alleviating Factors : None Associated Symptoms : None Interventions : Medications JENNY ABREU RN - 02/26/2016 13:30 CDT Gastrointestinal GI Patient Stated Symptoms : None Abdomen Description : Rounded Abdomen Palpation : Non-Tender, Soft Bowel Movement Last Date : 02/25/2016 CDT Bowel Sounds All Quadrants : Present URIJENNY RN - 02/26/2016 13:30 CDT Nutrition Appetite : Good Eating Difficulties : None Feeding Ability : Complete independence JENNY ABREU RN - 02/26/2016 13:30 CDT Genitourinary Patient Stated Symptoms : None Urinary Elimination : Voiding, no difficulties Urine Color : Yellow Urine Description : Clear JENNY ABREU RN - 02/26/2016 13:30 CDT Integumentary Integumentary Patient Stated Symptoms : None Skin Turgor : Non-Elastic Skin Integrity : Not intact Mucous Membrane Color : Meraux Mucous Membrane Description : Moist JENNY ABREU RN - 02/26/2016 13:30 CDT Skin Abnormality/Location Grid Location : Lower leg Other: all over body, arms, butt, legs Laterality : Right Abnormality : Excoriation, Flaking, Other: tight Other: psoriasis Comments (Comment: No open areas noted. [JENNY ABREU RN - 02/26/2016 13:30 CDT] ) JENNY ABREU RN - 02/26/2016 13:30 CDT JENNY ABREU RN - 02/26/2016 13:30 CDT Incision/Wound Incision/Wound Care Grid Activity : Assessed Wound Type : Other: cellulitis Location : Lower leg Laterality : Right Description : Edematous, Other: Reddness noted within markings. Color : Red Drainage : None Drainage Amount : None Surrounding Tissue : No signs or symptoms of localized infection Wound Dressing : Open to air JENNY ABREU RN - 02/26/2016 13:30 CDT Mando Sensory Perception Mando : No impairment Moisture Mando : Rarely moist Activity Mando : Walks occasionally Mobility Mando : Slightly limited Nutrition Mando : Adequate Friction and Shear Mando : No apparent problem Mando Score : 20 JENNY ABREU RN - 02/26/2016 13:30 CDT Musculoskeletal Musculoskeletal Patient Stated Symptoms : None Activity Tolerance : Without distress Musculoskeletal Note : Pt ambulates assist of one gaitbelt and walker with wheelchair to follow. JENNY ABREU RN - 02/26/2016 13:30 CDT Peripheral IV Peripheral IV Assess/Intervention Grid Peripheral IV #1 Peripheral IV #2 Peripheral IV #3 IV Activity : Assessment, Saline lock Removal : Catheter intact, Hemostasis within expected timeframe Catheter intact, Hemostasis within expected timeframe Date of Insertion : 02/25/2016 CDT 02/21/2016 CDT 02/23/2016 CDT Discontinued Date : 02/23/2016 CDT 02/25/2016 CDT IV Site : Antecubital Wrist Forearm Laterality : Left Left Left Catheter Size : 20 20 22 Catheter Type : Over the needle Over the needle Site Condition : No complications Drainage Description : None Dressing/ Activity : Dry, Intact Flow/ Patency : No complications JENNY ABREU RN - 02/26/2016 13:30 CDT JENNY ABREU RN - 02/26/2016 13:30 CDT JENNY ABREU RN - 02/26/2016 13:30 CDT Hendrich II Fall Risk Confusion/Disorientation Hendrich [...] Fall Risk Score Hendrich II : 1 JENNY ABREU RN - 02/26/2016 13:30 CDT Safe Patient Handling Safe Pt Handling Independent : Yes - No equipment needed Safe Pt Handling Equipment Rec : No Equipment Needed JENNY ABREU RN - 02/26/2016 13:30 CDT Education General Patient Education [employer] Topics : Safety, fall, Use of pain scale(s) Individuals Taught : Patient Barriers to Learning : None evident Teaching Method : Explanation Teaching Evaluation : Verbalizes understanding JENNY ABREU RN - 02/26/2016 13:30 CDT [facility] POWERCHART Document Id: [id number] CDT!14 Miscellaneous - Eliane Benjamin C.N.AMichael - 02/25/2016 9:30 PM CDT Adult Activities of Daily Living Adult Activities of Daily Living Entered On: 02/25/2016 22:00 CDT Performed On: 02/25/2016 21:30 CDT by ELIANE BENJAMIN CNA ADLs II Hygiene Assistance Grid Bed Bath : Refused Oral Care : Minimum assistance Leeanna Care : Maximum assistance ELIANE BENJAMIN CNA - 02/25/2016 21:59 CDT Bowel Movement Last Date : 02/25/2016 CDT Standard Safety : Bed alarm ON, Bed in low position, Call device within reach, Gait belt, Non-Slip footwear ELIANE BENJAMIN CNA - 02/25/2016 21:59 CDT Source: [employer] Document Id: [id number] CDT!8 Miscellaneous - Eliane Benjamin, C.N.A. - 02/25/2016 8:00 PM CDT Adult Activities of Daily Living Adult Activities of Daily Living Entered On: 02/25/2016 22:01 CDT Performed On: 02/25/2016 20:00 CDT by ELIANE BENJAMIN CNA ADLs I Patient Position : Other: ambulation Activity Status ADL : Ambulating in preciado Activity Assistance : Moderate 1 person assistance Assistive Device : Gait belt, Walker Ambulation Distance : 55 m(Converted to: 180 ft 5 inch(es), 5,500 cm) Ambulation Patient Effort : Good ELIAEN BENJAMIN CNA - 02/25/2016 22:00 CDT Source: [employer] Document Id: [id number] CDT!8 Miscellaneous - Sayda Andrews R.N. - 02/25/2016 6:19 PM CDT Adult Ongoing Assessment Adult Ongoing Assessment Entered On: 02/25/2016 18:28 CDT Performed On: 02/25/2016 18:19 CDT by SAYDA ANDREWS RN Respiratory Respiratory Patient Stated Symptoms : None Respirations : Unlabored Distress : None Respiratory Pattern : Regular All Lobes Breath Sounds : Clear Cough and Deep Breathe : Done Cough : None Sputum Amount : None Suction : None Airway : Patent SAYDA ANDREWS RN - 02/25/2016 18:19 CDT Cardiovascular CV Patient Stated Symptoms : None Heart Rhythm : Regular Heart Sounds ICU : S1S2 Antiembolism Device Yes/No : Yes Nail Bed Color : Meraux Capillary Refill : Less than 2 seconds Edema Assessment : Yes SAYDA ANDREWS RN - 02/25/2016 18:19 CDT Radial Pulse, Left : 2+ Normal Radial Pulse, Right : 2+ Normal Dorsalis Pedis Pulse, Left : 2+ Normal Dorsalis Pedis Pulse, Right : 2+ Normal SAYDA ANDREWS RN - 02/25/2016 18:19 CDT Skin Color : Normal for ethnicity Skin Description : Normal Skin Temperature : Warm Activity Tolerance : Without distress SAYDA ANDREWS RN - 02/25/2016 18:19 CDT Edema Details Edema Detailed Grid Ankle Edema Pedal Edema Right : 1+ trace/2mm 2+ mild/4mm SAYDA ANDREWS RN - 02/25/2016 18:19 CDT SAYDA ANDREWS RN - 02/25/2016 18:19 CDT Antiembolism Device Antiembolism Device : Other: tubigrip and coumadin SAYDA ANDREWS RN - 02/25/2016 18:19 CDT Neurological Neuro Patient Stated Symptoms : Other: Downs syndrome Orientation : Oriented x 3 Level of Consciousness : Alert Gait : Steady, Wide based Swallowing Difficulty/Aspiration Risk : None Last Well Time Known : Not applicable SAYDA ANDREWS RN - 02/25/2016 18:19 CDT Henley Coma Eye Opening Response Kathleen : Spontaneously Best Verbal Response Kathleen : Oriented Best Motor Response Henley : Obeys simple commands Kathleen Coma Score : 15 SAYDA ANDREWS RN - 02/25/2016 18:19 CDT Psycho/Emotional Affect/Behavior : Calm, Cooperative, Appropriate Pain Symptoms : Yes SAYDA ANDREWS RN - 02/25/2016 18:19 CDT Coping Grid Identifies effective strategies : Yes Uses effective strategies : Yes Reports increase in psychological comfort : Yes Indicates sense of control : Yes Stressors perceived within control : Yes Stable mood with appropriate affect : Yes Behaviors indicate use of coping mechanism : Yes Family supportive and involved in care : Yes Values/Beliefs incorporated appropriately : Yes SAYDA ANDREWS RN - 02/25/2016 18:19 CDT Safety Grid Vision, Hearing, Mobility Adequate to Meet Safety Needs : No SAYDA ANDREWS RN 02/25/2016 18:19 CDT Pain Scale Pain Scale Verbal 0-10 : Open SAYDA ANDREWS RN 02/25/2016 18:19 CDT Pain Pain Assessment Grid Pain 1 Location : Lower leg Laterality : Right Aggravating Factors : Movement, Palpation Alleviating Factors : Medication, Rest Interventions : Medications, Rest SAYDA ANDREWS RN 02/25/2016 18:19 CDT Gastrointestinal GI Patient Stated Symptoms : None Abdomen Description : Obese, Symmetric Abdomen Palpation : Non-Tender Bowel Movement Last Date : 02/25/2016 CDT Bowel Sounds All Quadrants : Present Stool Color : Brown Stool Description : Loose Stool Amount : Moderate Passing Flatus : Yes SAYDA ANDREWS RN 02/25/2016 18:19 CDT Genitourinary Patient Stated Symptoms : None Urinary Elimination : Voiding, no difficulties Urine Color : Yellow Urine Description : Clear Bladder Distention : Absent SAYDA ANDREWS RN 02/25/2016 18:19 CDT Integumentary Integumentary Patient Stated Symptoms : None Skin Turgor : Elastic Skin Integrity : Not intact Mucous Membrane Color : Meraux Mucous Membrane Description : Moist SAYDA ANDREWS RN 02/25/2016 18:19 CDT Skin Abnormality/Location Grid Location : Lower leg Other: all over body, arms, butt, legs Laterality : Right Abnormality : Excoriation, Flaking, Other: tight Other: psoriasis Treatment : Lotion, Other: tubigrip SAYDA ANDREWS RN 02/25/2016 18:19 CDT SAYDA ANDREWS RN 02/25/2016 18:19 CDT Skin Color : Normal for ethnicity Skin Description : Normal, Other: psoriasis Skin Temperature : Warm SAYDA ANDREWS RN 02/25/2016 18:19 CDT Incision/Wound Incision/Wound Care Grid Activity : Assessed Wound Type : Other: cellulitis Location : Lower leg Laterality : Right SAYDA ANDREWS RN - 02/25/2016 18:19 CDT Mando Sensory Perception Mando : No impairment Moisture Mando : Occasionally moist Activity Mando : Walks frequently Mobility Mando : No limitations Nutrition Mando : Excellent Friction and Shear Mando : No apparent problem Mando Score : 22 SAYDA ANDREWS RN - 02/25/2016 18:19 CDT Peripheral IV Peripheral IV Assess/Intervention Grid Peripheral IV #1 Peripheral IV #2 Peripheral IV #3 IV Activity : Saline lock Removal : Catheter intact, Hemostasis within expected timeframe Catheter intact, Hemostasis within expected timeframe Date of Insertion : 02/25/2016 CDT 02/21/2016 CDT 02/23/2016 CDT Discontinued Date : 02/23/2016 CDT 02/25/2016 CDT IV Site : Antecubital Wrist Forearm Laterality : Left Left Left Catheter Size : 20 20 22 Catheter Type : Over the needle Over the needle Site Condition : No complications SAYDA ANDREWS RN - 02/25/2016 18:19 CDT SAYDA ANDREWS RN - 02/25/2016 18:19 CDT SAYDA ANDREWS RN - 02/25/2016 18:19 CDT Hendrich II Fall Risk Confusion/Disorientation Hendrich [...] Fall Risk Score Hendrich II : 1 SAYDA ANDREWS RN - 02/25/2016 18:19 CDT Safe Patient Handling Safe Pt Handling Independent : No Safe Pt Handling Supervision/Minimal Assistance : Yes - Unmotorized Equipment Safe Pt Handling Equipment Rec : Unmotorized Equipment Repositioning Device Recommended : Yes SAYDA ANDREWS RN - 02/25/2016 18:19 CDT Source: [employer] POWERCHART Document Id: [id number] CDT!163 Miscelllucian - Sayda Andrews RKareem. - 02/25/2016 6:17 PM CDT Adult Activities of Daily Living Adult Activities of Daily Living Entered On: 02/25/2016 18:18 CDT Performed On: 02/25/2016 18:17 CDT by SAYDA ANDREWS RN ADLs I Patient Position : Elevate Heels off bed, Elevate head of bed 30 degrees, Sitting in bed Activity Status ADL : Ambulating in preciado, Up with assistance Activity Assistance : Supervision/Minimum 2 person assistance Assistive Device : Gait belt, Walker, Wheelchair Repositioning/Pressure Reducing Devices : Pillow SAYDA ANDREWS RN - 02/25/2016 18:17 CDT ADLs II Bowel Movement Last Date : 02/24/2016 CDT Standard Safety : Bed in low position, Call device within reach, Gait belt, ID band check, Non-Slip footwear, Rounds every 1 hour, Wheels locked SAYDA ANDREWS RN - 02/25/2016 18:17 CDT ADLs Adult Nutrition Diet Type : Diet -- 02/21/16 13:31:00 CDT, General (No Restrictions) Feeding Assistance : Independent SAYDA ANDREWS RN - 02/25/2016 18:17 CDT [facility]: [email or web address] Document Id: [id number] CDT!13 Enriquetacelllucian - Rye Liriano, C.N.A. - 02/25/2016 5:14 PM CDT Adult Activities of Daily Living Adult Activities of Daily Living Entered On: 02/25/2016 17:15 CDT Performed On: 02/25/2016 17:14 CDT by REY LIRIANO ADLs I Activity Assistance : Moderate 1 person assistance Assistive Device : Gait belt, Walker REY LIRIANO - 02/25/2016 17:14 CDT ADLs II Hygiene Assistance Grid Back Rub : Maximum assistance Foot Care : Maximum assistance Hair Care : Minimum assistance Oral Care : Minimum assistance Leeanna Care : Maximum assistance Shower : Moderate assistance Upper Body Dressing(Clothing) : Minimum assistance Lower Body Dressing(Clothing) : Maximum assistance REY LIRIANO - 02/25/2016 17:14 CDT Bowel Movement Last Date : 02/24/2016 CDT Standard Safety : Bed alarm ON, Bed in low position, Call device within reach, Chair Alarm, Gait belt, Non-Slip footwear REY LIRIANO - 02/25/2016 17:14 CDT Source: [employer] Document Id: [id number] CDT!16 Rey Gagnon, C.N.A. - 02/25/2016 5:08 PM CDT Adult Activities of Daily Living Adult Activities of Daily Living Entered On: 02/25/2016 17:09 CDT Performed On: 02/25/2016 17:08 CDT by REY LIRIANO ADLs I Activity Assistance : Moderate 1 person assistance Assistive Device : Gait belt, Walker, Wheelchair Ambulation Distance : 68 m(Converted to: 223 ft 1 inch(es), 6,800 cm) Ambulation Patient Effort : Good REY LIRIANO - 02/25/2016 17:08 CDT ADLs II Bowel Movement Last Date : 02/24/2016 CDT REY LIRIANO - 02/25/2016 17:08 CDT Source: [employer] Document Id: [id number] CDT!8 Rey Gagnon, C.N.A. - 02/25/2016 3:46 PM CDT Adult Activities of Daily Living Adult Activities of Daily Living Entered On: 02/25/2016 15:46 CDT Performed On: 02/25/2016 15:46 CDT by REY LIRIANO ADLs I Activity Assistance : Moderate 1 person assistance Assistive Device : Gait belt, Walker, Wheelchair Ambulation Distance : 68 m(Converted to: 223 ft 1 inch(es), 6,800 cm) Ambulation Patient Effort : REY Sams - 02/25/2016 15:46 CDT Source: [employer] Document Id: [id number] CDT!6 [place] - Rey Liriano, C.N.A. - 02/25/2016 3:46 PM CDT Adult Activities of Daily Living Adult Activities of Daily Living Entered On: 02/25/2016 15:47 CDT Performed On: 02/25/2016 15:46 CDT by REY LIRIANO ADLs I Activity Assistance : Moderate 1 person assistance Assistive Device : Gait belt, Walker, Wheelchair Ambulation Distance : 60 m(Converted to: 196 ft 10 inch(es), 6,000 cm) Ambulation Patient Effort : REY Sams - 02/25/2016 15:46 CDT Source: [employer] Document Id: [id number] CDT!6 Enriquetacelllucian - Sabrina Medina RViktor - 02/25/2016 1:40 PM CDT Adult Activities of Daily Living Adult Activities of Daily Living Entered On: 02/25/2016 13:40 CDT Performed On: 02/25/2016 13:40 CDT by SABRINA MEDINA RN ADLs I Activity Assistance : Stand-by assistance Assistive Device : Gait belt, Walker Ambulation Distance : 68 m(Converted to: 223 ft 1 inch(es), 6,800 cm) Ambulation Patient Effort : SABRINA Avina RN - 02/25/2016 13:40 CDT Source: [facility] MarginizeCHART Document Id: [id number] CDT!6 Miscellaneous - Sasha Brizuela Pharm.D., R.Ph. - 02/25/2016 1:12 PM CDT Anticoagulation Patient Intake Anticoagulation Patient Intake Entered On: 02/25/2016 13:14 CDT Performed On: 02/25/2016 13:12 CDT by SASHA BRIZUELA Pharm.D., R.Ph. Plan INR goal range : 2.0 - 3.0 Duration of Therapy : Lifelong Tablet Size : 5 mg SASHA BRIZUELA Pharm.D., R.Ph. - 02/25/2016 13:12 CDT Anticoagulation Management Plan Grid Date : [...] Two weeks Plan completed by : SASHA Hutson PharmJaime, R.Ph. - 02/25/2016 13:12 CDT SASHA BRIZUELA Pharm.D., R.Ph. - 02/25/2016 13:12 CDT SASHA BRIZUELA Pharm.D., R.Ph. - 02/25/2016 13:12 CDT SASHA BRIZUELA Pharm.D., R.Ph. - 02/25/2016 13:12 CDT Date : 12/26/2013 CDT 01/30/2014 CDT [...] a long time, no bleeding now left [facility] [place] for Fabiola,call if changes Recommend Recheck : Other: 5 weeks Other: 5 weeks Other: 03/10/2014 Other: 03/20/14 Plan completed by : SASHA HensonDMichael, R.Ph. - 02/25/2016 13:12 CDSASHA MCBRIDE Pharm.D., R.Ph. - 02/25/2016 13:12 CDT SASHA BRIZUELA Pharm.D., R.Ph. - 02/25/2016 13:12 CDSASHA MCBRIDE Pharm.D., R.Ph. - 02/25/2016 13:12 CDT Date : 03/20/2014 CDT 03/27/2014 CDT 04/10/2014 CDT 04/12/2014 CDT Location of INR sample : Lab Lab Lab Lab Type of Sample : Venous Venous Venous INR Result : 3.8 3.2 5.3 2.9 Warfarin Dose : HOLD 03/20, then 5mg Mon/Mon, 2.5mg all other days 5mg Mon/Wed, 2.5mg [...] LM /pharmacy SASHA BRIZUELA Pharm.D., R.Ph. - 02/25/2016 13:12 CDT SASHA BRIZUELA Pharm.D., R.Ph. - 02/25/2016 13:12 CDT SASHA BRIZUELA Pharm.D., R.Ph. - 02/25/2016 13:12 CDT SASHA BRIZUELA Pharm.D., R.Ph. - 02/25/2016 13:12 CDT Date : 04/17/2014 CDT 04/24/2014 CDT 05/01/2014 HELP DESK TEAM LEADER 05/15/2014 HELP DESK TEAM LEADER Location of INR sample : Lab Lab [...] will trynoted dose called to mom Fabiola [phone] called to Fabiola/no changes Called to mother/Fabiola, not awareof any changes Recommend Recheck : One week One week Two weeks Two weeks Plan completed by : SASHA BENTON Pharm.D., R.Ph. - 02/25/2016 13:12 CDSASHA MCBRIDE Pharm.D., R.Ph. - 02/25/2016 13:12 CDT SASHA BRIZUELA Pharm.D., R.Ph. - 02/25/2016 13:12 CDT SASHA BRIZUELA PharmJaime, R.Ph. - 02/25/2016 13:12 CDT Date : 06/03/2014 HELP DESK TEAM LEADER 06/05/2014 HELP DESK TEAM LEADER 06/10/2014 HELP DESK TEAM LEADER 06/11/2014 HELP DESK TEAM LEADER Location of INR sample : Lab Type [...] Called motherFabiola. Dorita will be staying in [place] 2wks post-surgery & have INR drawn there. [...] lovenox tomorrow AM as ordered. INR in [place] for next several weeks as pt will be recovering there. Recommend Recheck : Other: depending on Dr. Henriquez's preop. Other: 06/18 Other: 06/13/14 Plan completed by : SASHA JESSICA Pharm.D., R.Ph. - 02/25/2016 13:12 SASHA REILLY Pharm.D., R.Ph. - 02/25/2016 13:12 SASHA REILLY Pharm.D., R.Ph. - 02/25/2016 13:12 SASHA REILLY Pharm.D., R.Ph. - 02/25/2016 13:12 CDT Date : 06/14/2014 HELP DESK TEAM LEADER 06/14/2014 HELP DESK TEAM LEADER 06/16/2014 HELP DESK TEAM LEADER 06/23/2014 HELP DESK TEAM LEADER Location of INR sample : Clinic Lab Lab Type of Sample : Venous Venous INR Result : 1.3 on 06/13 2.4 faxed from lab 2.0 Warfarin Dose : (pt took 2.5mg 06/13) 5mg Sat and 5mg Sun (06/14 and 06/15) 5mg Mon and 2.5mg all other days 5mg Mon and 2.5mg all other days Total Weekly Warfarin Dose : 20 20 Comment : [place] lab called with INR result from 06/13, reported they left a message with Dr. Henriquez and hadn't heard back, spoke with mother, Fabiola, and gave doses, continue Lovenox and repeat INR 06/16, message left with INR clinic in to contact CF Please contact [place] lab on 06/16 for result and may call Fabiola at [phone] with instructions call to Fabiola/will stop Lovenox injections and take noted dose/pt has an appt here in [place] 06/23 so will do lab appt here that day Called to Fabiola/ Dorita will be back at [facility] by next draw. will have done on . no changes to meds/diet. Recommend Recheck : Two days One week Two weeks Plan completed by : SASHA Birch LM, Pharm.D., R.Ph. - 02/25/2016 13:12 CDT SASHA BRIZUELA Pharm.D., R.Ph. - 02/25/2016 13:12 CDT SASHA BRIZUELADMichael, R.Ph. - 02/25/2016 13:12 CDT SASHA BRIZUELA Pharm.D., R.Ph. - 02/25/2016 13:12 CDT Date : 07/10/2014 HELP DESK TEAM LEADER 07/17/2014 HELP DESK TEAM LEADER 07/31/2014 HELP DESK TEAM LEADER 09/11/2014 CDT Location of INR sample : [...] weeks Plan completed by : SASHA Yuen Pharm.Valentina., R.Ph. - 02/25/2016 13:12 CDT SASHA BRIZUELA Pharm.D., R.Ph. - 02/25/2016 13:12 CDT SASHA BRIZUELA Pharm.Rohit, R.Ph. - 02/25/2016 13:12 CDT SASHA BRIZUELA.Rohit, R.Ph. - 02/25/2016 13:12 CDT Date : 09/12/2014 CDT 09/25/2014 CDT [...] by : SASHA Pantoja Pharm.D., R.Ph. - 02/25/2016 13:12 CDT SASHA BRIZUELA Pharm.D., R.Ph. - 02/25/2016 13:12 CDT SASHA BRIZUELA Pharm.DMichael, R.Ph. - 02/25/2016 13:12 CDT SASHA BRIZUELA Pharm.D., R.Ph. - 02/25/2016 13:12 CDT Date : 10/23/2014 CDT 11/13/2014 CDT [...] is she is 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 Sanivation/no bleeding/consult with Quintin/Pharmacy and called Mom with orders Per Meredith Hernandez, no changes, has been drinking some Kiwi Juice, no bleeding/consult with Quintin/Pharmacy Called to mom /Fabiola, no changes, rev'd w/BCarlson/Pharmacy Recommend Recheck : Three weeks One week One week One week Plan completed by : SASHA Pedroza Pharm.D., R.Ph. - 02/25/2016 13:12 CDT SASHA BRIZUELA Pharm.D., R.Ph. - 02/25/2016 13:12 CDT SASHA BRIZUELA Pharm.D., R.Ph. - 02/25/2016 13:12 CDT SASHA BRIZUELA Pharm.D., R.Ph. - 02/25/2016 13:12 CDT Date : 12/04/2014 CDT 12/18/2014 CDT [...] by : SASHA Blackman Pharm.D., R.Ph. - 02/25/2016 13:12 CDT SASHA BRIZUELA.Rohit, R.Ph. - 02/25/2016 13:12 CDT SASHA BRIZUELA.Rohit, R.Ph. - 02/25/2016 13:12 CDT SASHA BRIZUELA.Rohit, R.Ph. - 02/25/2016 13:12 CDT Date : 02/05/2015 CDT 02/26/2015 CDT [...] Three weeks Plan completed by : SASHA LATIF.Rohit, R.Ph. - 02/25/2016 13:12 CDT SASHA BRIZUELA.Rohit, R.Ph. - 02/25/2016 13:12 CDT SASHA BRIZUELA Pharm.Valentina., R.Ph. - 02/25/2016 13:12 CDT SASHA BRIZUELA Pharm.D., R.Ph. - 02/25/2016 13:12 CDT Date : 04/09/2015 CDT 05/07/2015 HELP DESK TEAM LEADER 06/04/2015 HELP DESK TEAM LEADER 07/02/2015 HELP DESK TEAM LEADER Location of INR sample : Lab Lab [...] by : SASHA Suarez Pharm.D., R.Ph. - 02/25/2016 13:12 CDT SASHA BRIZUELA Pharm.D., R.Ph. - 02/25/2016 13:12 CDT SASHA BRIZUELA Pharm.D., R.Ph. - 02/25/2016 13:12 CDT SASHA BRIZUELA Pharm.D., R.Ph. - 02/25/2016 13:12 CDT Date : 08/06/2015 HELP DESK TEAM LEADER 09/17/2015 CDT 10/29/2015 CDT 11/12/2015 CDT Location [...] by : SASHA Bertrand Pharm.D., R.Ph. - 02/25/2016 13:12 CDT SASHA BRIZUELA Pharm.D., R.Ph. - 02/25/2016 13:12 CDT SASHA BRIZUELA Pharm.D., R.Ph. - 02/25/2016 13:12 CDT SASHA BRIZUELA Pharm.D., R.Ph. - 02/25/2016 13:12 CDT Date : 11/19/2015 CDT 12/03/2015 CDT [...] by : SASHA Quintana Pharm.D., R.Ph. - 02/25/2016 13:12 CDT SSAHA BRIZUELA Pharm.D., R.Ph. - 02/25/2016 13:12 CDT SASHA BRIZUELA Pharm.D., R.Ph. - 02/25/2016 13:12 CDT SASHA BRIZUELA Pharm.D., R.Ph. - 02/25/2016 13:12 CDT Date : 02/19/2016 CDT 02/20/2016 CDT [...] Brizuela PharmJaime ASTUDILLO, PharmD Eliseo Quezada, ReaD. SASHA BRIZUELA Pharm.DMichael, R.Ph. - 02/25/2016 13:12 CDT SASHA BRIZUELA PharmJaime, R.Ph. - 02/25/2016 13:12 CDT SASHA BRIZUELA Pharm.D., R.Ph. - 02/25/2016 13:12 CDT SASHA BRIZUELA Pharm.D., R.Ph. - 02/25/2016 13:12 CDT Date : 02/23/2016 CDT 02/24/2016 CDT 02/25/2016 CDT Location of INR sample [facility] Type of Sample : Venous Venous Venous INR Result : 2.45 2.85 2.14 Warfarin Dose : 2.5 mg 1mg 2.5 mg Total Weekly Warfarin Dose : Comment : give 2.5 mg today and recheck INR tomorrow give 1 mg today and recheck INR tomorrow INR drawn at 1230 (late). Give 2.5 mg today and recheck INR tomorrow. Recommend Recheck : One day One day One day Plan completed by : Eliseo Quezada, PharmValentina. Eliseo Quezada, ReaD. Tyshawn Brizuela, Pharm.DSASHA KRUEGER PharmJaime, R.Ph. - 02/25/2016 13:12 CDT SASHA BRIZUELA PharmJaime, R.Ph. - 02/25/2016 13:12 CDT SASHA BRIZUELA Pharm.D., R.Ph. - 02/25/2016 13:12 CDT Source: [facility]ratiCHART Document Id: [id number] CDT!595 Miscellaneous - Sabrina Medina R.N. - 02/25/2016 9:06 AM CDT Adult Ongoing Assessment Adult Ongoing Assessment Entered On: 02/25/2016 9:11 CDT Performed On: 02/25/2016 9:06 CDT by SABRINA MEDINA RN Respiratory Respiratory Patient Stated Symptoms : None Respirations : Unlabored Distress : None Respiratory Pattern : Regular All Lobes Breath Sounds : Clear Cough and Deep Breathe : Done Cough : None Sputum Amount : None Suction : None Airway : Patent SABRINA MEDINA RN - 02/25/2016 9:06 CDT Cardiovascular CV Patient Stated Symptoms : None Heart Rhythm : Regular Heart Sounds ICU : S1S2 Antiembolism Device Yes/No : Yes Nail Bed Color : Meraux Capillary Refill : Less than 2 seconds Edema Assessment : Yes SABRINA MEDINA RN - 02/25/2016 9:06 CDT Radial Pulse, Left : 2+ Normal Radial Pulse, Right : 2+ Normal Dorsalis Pedis Pulse, Left : 2+ Normal Dorsalis Pedis Pulse, Right : 2+ Normal SABRINA MEDINA RN - 02/25/2016 9:06 CDT Skin Color : Normal for ethnicity Skin Description : Normal Skin Temperature : Warm Activity Tolerance : Without distress SABRINA MEDINA RN - 02/25/2016 9:06 CDT Edema Details Edema Detailed Grid Pretibial Edema Ankle Edema Pedal Edema Right : 2+ mild/4mm 2+ mild/4mm 2+ mild/4mm SABRINA MEDINA RN - 02/25/2016 9:06 CDT SABRINA MEDINA RN - 02/25/2016 9:06 CDT SABRINA MEDINA RN - 02/25/2016 9:06 CDT Antiembolism Device Antiembolism Device : Sequential Compression Device Antiembolism Device Laterality : Bilateral Antiembolism Device Status : Off SABRINA MEDINA RN - 02/25/2016 9:06 CDT Neurological Neuro Patient Stated Symptoms : None Orientation : Oriented x 3 Level of Consciousness : Alert Gait : Steady Swallowing Difficulty/Aspiration Risk : None Last Well Time Known : Not applicable SABRINA MEDINA RN 02/25/2016 9:06 CDT Henley Coma Eye Opening Response Kathleen : Spontaneously Best Verbal Response Kathleen : Oriented Best Motor Response Kathleen : Obeys simple commands Kathleen Coma Score : 15 SABRINA MEDINA ANGELINE 02/25/2016 9:06 CDT Psycho/Emotional Affect/Behavior : Calm, Cooperative, Appropriate Pain Symptoms : No Feels Rested : Yes SABRINA MEDINA Hudson MARCUS 02/25/2016 9:06 CDT Coping Grid Identifies effective strategies : Yes Uses effective strategies : Yes Reports increase in psychological comfort : Yes Indicates sense of control : Yes Stressors perceived within control : Yes Stable mood with appropriate affect : Yes Behaviors indicate use of coping mechanism : Yes Family supportive and involved in care : Yes Values/Beliefs incorporated appropriately : Yes MICHAEL MEDINAHIRAL Treviño RN 02/25/2016 9:06 CDT Safety Grid Vision, Hearing, Mobility Adequate to Meet Safety Needs : Yes SABRINA MEDINA Hudson MARCUS 02/25/2016 9:06 CDT Gastrointestinal GI Patient Stated Symptoms : None Abdomen Description : Obese, Symmetric Abdomen Palpation : Non-Tender, Soft Bowel Movement Last Date : 02/24/2016 CDT Bowel Sounds All Quadrants : Present Passing Flatus : Yes MICHAEL MEDINAHIRAL Treviño RN 02/25/2016 9:06 CDT Nutrition Appetite : Excellent Eating Difficulties : None Feeding Ability : Complete independence MICHAEL MEDINAHIRAL Treviño RN 02/25/2016 9:06 CDT Genitourinary Patient Stated Symptoms : None Urinary Elimination : Voiding, no difficulties Urine Color : Yellow Urine Description : Clear Urine Odor : Odorless MICHAEL MEDINAHIRAL Treviño RN 02/25/2016 9:06 CDT Integumentary Integumentary Patient Stated Symptoms : None Skin Turgor : Elastic Skin Integrity : Intact Mucous Membrane Color : Meraux Mucous Membrane Description : Moist MICHAEL MEDINAHIRAL Treviño RN 02/25/2016 9:06 CDT Skin Abnormality/Location Grid Location : Lower leg Other: all over body, arms, butt, legs Laterality : Right Abnormality : Excoriation, Flaking, Other: tight Other: psoriasis ADAM SABRINAHIRAL Treviño RN 02/25/2016 9:06 CDT ADAM, SABRINAHIRAL Treviño RN 02/25/2016 9:06 CDT Skin Color : Normal for ethnicity Skin Description : Normal Skin Temperature : Warm ADAMSABRINA RN 02/25/2016 9:06 CDT Incision/Wound Incision/Wound Care Grid Activity : Assessed Wound Type : Other: cellulitis Location : Lower leg Laterality : Right Description : Dry Color : Red, Meraux Drainage : None Surrounding Tissue : Edema, Intact Wound Dressing : Other: Compressogrip applied from toes to ankle and from ankle to knee Neurovascular Status : Neurovascular intact distal to injury, Pulses distal to injury palpable, Skindistal to injury warm and pink SABRINA MEDINA RN - 02/25/2016 9:06 CDT Mando Sensory Perception Mando : No impairment Moisture Mando : Rarely moist Activity Mando : Walks frequently Mobility Mando : No limitations Nutrition Mando : Excellent Friction and Shear Mando : Potential problem Mando Score : 22 SABRINA MEDINA RN - 02/25/2016 9:06 CDT Musculoskeletal Musculoskeletal Patient Stated Symptoms : None Activity Tolerance : Without distress SABRINA MEDINA RN 02/25/2016 9:06 CDT Peripheral IV Peripheral IV Assess/Intervention Grid Peripheral IV #1 Peripheral IV #2 Peripheral IV #3 IV Activity : Assessment Removal : Catheter intact Catheter intact, Hemostasis within expected timeframe Date of Insertion : 02/21/2016 CDT 02/23/2016 CDT Discontinued Date : 02/21/2016 CDT 02/23/2016 CDT IV Site : Antecubital Wrist Forearm Laterality : Left Left Left Catheter Size : 20 22 Catheter Type : Over the needle Site Condition : No complications Drainage Description : None Dressing/ Activity : Dry, Intact, Transparent Flow/ Patency : No complications SABRINA MEDINA RN 02/25/2016 9:06 CDT SABRINA MEDINA RN - 02/25/2016 9:06 CDT SABRINA MEDINA RN 02/25/2016 9:06 CDT Hendrich II Fall Risk Confusion/Disorientation Hendrich [...] II : 1 SABRINA MEDINA RN - 02/25/2016 9:06 CDT Safe Patient Handling Safe Pt Handling Independent : Yes - No equipment needed Safe Pt Handling Equipment Rec : Unmotorized Equipment SABRINA MEDINA RN - 02/25/2016 9:06 CDT Education General Patient Education Powergrid Topics : Exercise, Medication generic/brand names, purpose, action, Nutrition/Diet, Pain Management,Plan of care, Safety, fall, Turn/Cough/Deep breathing, Wound care Individuals Taught : Patient Barriers to Learning : None evident Teaching Method : Explanation Teaching Evaluation : Verbalizes understanding SABRNIA MEDINA RN - 02/25/2016 9:06 CDT Source: [employer] Document Id: [id number] CDT!173 Misyohana - Eliane Benjamin, C.N.A. - 02/24/2016 9:00 PM CDT Adult Activities of Daily Living Adult Activities of Daily Living Entered On: 02/24/2016 22:31 CDT Performed On: 02/24/2016 21:00 CDT by ELIANE BENJAMIN CNA ADLs I Patient Position : Other: ambulation Activity Status ADL : Ambulating in preciado Activity Assistance : Moderate 1 person assistance Assistive Device : Gait belt, Walker Ambulation Distance : 55 m(Converted to: 180 ft 5 inch(es), 5,500 cm) Ambulation Patient Effort : Good ELIANE BENJAMIN CNA - 02/24/2016 22:31 CDT ADLs II Hygiene Assistance Grid Oral Care : Minimum assistance Leeanna Care : Maximum assistance ELIANE BENJAMIN CNA - 02/24/2016 22:30 CDT Bowel Movement Last Date : 02/24/2016 CDT Standard Safety : Bed alarm ON, Bed in low position, Call device within reach, Gait belt, Non-Slip footwear ELIANE BENJAMIN CNA - 02/24/2016 22:30 CDT Source: [employer] Document Id: [id number] CDT!8 [place] - Sayda Andrews RMichaelN. - 02/24/2016 7:42 PM CDT Adult Ongoing Assessment Adult Ongoing Assessment Entered On: 02/24/2016 19:51 CDT Performed On: 02/24/2016 19:42 CDT by SAYDA ANDREWS RN Respiratory Respiratory Patient Stated Symptoms : None Respirations : Unlabored Distress : None Respiratory Pattern : Regular All Lobes Breath Sounds : Clear Cough and Deep Breathe : Done Cough : None Sputum Amount : None Suction : None Airway : Patent SAYDA ANDREWS RN - 02/24/2016 19:42 CDT Cardiovascular CV Patient Stated Symptoms : None Heart Rhythm : Regular Heart Sounds ICU : S1S2 Antiembolism Device Yes/No : Yes Nail Bed Color : Meraux Capillary Refill : Less than 2 seconds Edema Assessment : Yes SAYDA ANDREWS RN - 02/24/2016 19:42 CDT Radial Pulse, Left : 2+ Normal Radial Pulse, Right : 2+ Normal Dorsalis Pedis Pulse, Left : 2+ Normal Dorsalis Pedis Pulse, Right : 2+ Normal SAYDA ANDREWS RN - 02/24/2016 19:42 CDT Skin Color : Normal for ethnicity Skin Description : Normal Skin Temperature : Warm Activity Tolerance : Without distress SAYDA ANDREWS RN - 02/24/2016 19:42 CDT Edema Details Edema Detailed Grid Ankle Edema Pedal Edema Right : 2+ mild/4mm 2+ mild/4mm SAYDA ANDREWS RN - 02/24/2016 19:42 CDT SAYDA ANDREWS RN - 02/24/2016 19:42 CDT Antiembolism Device Antiembolism Device : Other: tubigrip Antiembolism Device Laterality : Right Antiembolism Device Status : Off SAYDA ANDREWS RN - 02/24/2016 19:42 CDT Neurological Neuro Patient Stated Symptoms : Other: Down Syndrome Orientation : Oriented x 3 Level of Consciousness : Alert Gait : Steady, Wide based Swallowing Difficulty/Aspiration Risk : None Last Well Time Known : Not applicable SAYDA ANDREWS RN - 02/24/2016 19:42 CDT Henley Coma Eye Opening Response Henley : Spontaneously Best Verbal Response Kathleen : Oriented Best Motor Response Henley : Obeys simple commands Henley Coma Score : 15 SAYDA ANDREWS RN - 02/24/2016 19:42 CDT Psycho/Emotional Affect/Behavior : Calm, Cooperative, Appropriate Pain Symptoms : Yes SAYDA ANDREWS RN - 02/24/2016 19:42 CDT Coping Grid Identifies effective strategies : Yes Uses effective strategies : Yes Reports increase in psychological comfort : Yes Indicates sense of control : Yes Stressors perceived within control : Yes Stable mood with appropriate affect : Yes Behaviors indicate use of coping mechanism : Yes Family supportive and involved in care : Yes Values/Beliefs incorporated appropriately : Yes SAYDA ANDREWS RN - 02/24/2016 19:42 CDT Safety Grid Vision, Hearing, Mobility Adequate to Meet Safety Needs : No SAYDA ANDREWS RN - 02/24/2016 19:42 CDT Pain Scale Pain Scale Verbal 0-10 : Open SAYDA ANDREWS RN - 02/24/2016 19:42 CDT Pain Pain Assessment Grid Pain 1 Location : Lower leg Laterality : Right Alleviating Factors : Medication Interventions : Medications, Repositioning SAYDA ANDREWS RN - 02/24/2016 19:42 CDT Gastrointestinal GI Patient Stated Symptoms : None Abdomen Description : Obese, Symmetric Abdomen Palpation : Non-Tender Bowel Movement Last Date : 02/24/2016 CDT Bowel Sounds All Quadrants : Present Passing Flatus : Yes SAYDA ANDREWS RN - 02/24/2016 19:42 CDT Nutrition Appetite : Excellent Eating Difficulties : None Feeding Ability : Modified independence SAYDA ANDREWS RN - 02/24/2016 19:42 CDT Genitourinary Patient Stated Symptoms : None Urinary Elimination : Voiding, no difficulties Bladder Distention : Absent SAYDA ANDREWS RN - 02/24/2016 19:42 CDT Integumentary Integumentary Patient Stated Symptoms : None Skin Turgor : Elastic Skin Integrity : Not intact Mucous Membrane Color : Meraux Mucous Membrane Description : Moist SAYDA ANDREWS RN - 02/24/2016 19:42 CDT Skin Abnormality/Location Grid Location : Lower leg Other: all over body, arms, butt, legs Laterality : Right Abnormality : Excoriation, Flaking, Other: tight Other: psoriasis Treatment : Other: lotion, tubigrip on in the AM SAYDA ANDREWS RN - 02/24/2016 19:42 CDT SAYDA ANDREWS RN - 02/24/2016 19:42 CDT Skin Color : Normal for ethnicity Skin Description : Normal, Other: psoriasis Skin Temperature : Warm SAYDA ANDREWS Hudson MARCUS - 02/24/2016 19:42 CDT Incision/Wound Incision/Wound Care Grid Activity : Assessed Wound Type : Other: cellulitis Location : Lower leg Laterality : Right Description : Dry, Flat, Tender Color : Red, Meraux Drainage : None Drainage Amount : None Wound Dressing : Tube gauze Neurovascular Status : Neurovascular intact distal to injury, Pulses distal to injury palpable, Skindistal to injury warm and pink SAYDA ANDREWS Hudson MARCUS - 02/24/2016 19:42 CDT Mando Sensory Perception Mando : No impairment Moisture Mando : Rarely moist Activity Mando : Walks frequently Mobility Mando : No limitations Nutrition Mando : Excellent Friction and Shear Mando : No apparent problem Mando Score : 23 SHERIFERNESTOCHLOE SAYDA R RN - 02/24/2016 19:42 CDT Peripheral IV Peripheral IV Assess/Intervention Grid Peripheral IV #1 Peripheral IV #2 Peripheral IV #3 IV Activity : Assessment, Saline lock Removal : Catheter intact Catheter intact, Hemostasis within expected timeframe Date of Insertion : 02/21/2016 CDT 02/23/2016 CDT Discontinued Date : 02/21/2016 CDT 02/23/2016 CDT IV Site : Antecubital Wrist Forearm Laterality : Left Left Left Catheter Size : 20 22 Catheter Type : Over the needle Site Condition : No complications EVACHLOEBERTHAKennedy Treviño RN - 02/24/2016 19:42 CDT SHERIFGURINDER SAYDAKIP Treviño RN - 02/24/2016 19:42 CDT SHERIFGURINDER SAYDAKIP Treviño RN - 02/24/2016 19:42 CDT Hendrich II Fall Risk Confusion/Disorientation Hendrich [...] steps Fall Risk Score Hendrich II : 0 SHERIFGURINDER SAYDA R RN - 02/24/2016 19:42 CDT Safe Patient Handling Safe Pt Handling Independent : No Safe Pt Handling Supervision/Minimal Assistance : Yes - Unmotorized Equipment Safe Pt Handling Equipment Rec : Unmotorized Equipment Repositioning Device Recommended : Yes SAYDA ANDREWS RN - 02/24/2016 19:42 CDT Source: [facility] Tap[employer]k Document Id: [id number] CDT!166 Miscellaneous - Sayda Andrews R.N. - 02/24/2016 7:34 PM CDT Adult Activities of Daily Living Adult Activities of Daily Living Entered On: 02/24/2016 19:34 CDT Performed On: 02/24/2016 19:34 CDT by SAYDA ANDREWS RN ADLs I Patient Position : Elevate Heels off bed, Supine SAYDA ANDREWS RN - 02/24/2016 19:40 CDT Activity Status ADL : Ambulating in room, Up with assistance Activity Assistance : Supervision/Minimum 1 person assistance Assistive Device : Gait belt, Walker Repositioning/Pressure Reducing Devices : Pillow SAYDA ANDREWS RN - 02/24/2016 19:34 CDT ADLs II Standard Safety : Bed in low position, Call device within reach, Gait belt, ID band check, Non-Slip footwear, Rounds every 1 hour, Wheels locked Bowel Movement Last Date : 02/24/2016 CDT SAYDA ANDREWS RN - 02/24/2016 19:40 CDT ADLs Adult Nutrition Diet Type : Diet -- 02/21/16 13:31:00 CDT, General (No Restrictions) Feeding Assistance : Minimum assistance SAYDA ANDREWS RN - 02/24/2016 19:40 CDT Source: [employer] Document Id: [id number] CDT!13 Miscellaneous - Lorrie Siddiqui C.NEstrella - 02/24/2016 6:08 PM CDT Activity Participation Activity Participation Entered On: 02/24/2016 18:09 CDT Performed On: 02/24/2016 18:08 CDT by LORRIE SIDDIQUI Activity Participation Recreational Activity - Restorative : Other: ambulated 4 times this shift LORRIE SIDDIQUI - 02/24/2016 18:08 CDT Source: [employer] Document Id: [id number] CDT!3 Miscellaneous - Lorrie Siddiqui, C.N.A. - 02/24/2016 5:30 PM CDT Adult Activities of Daily Living Adult Activities of Daily Living Entered On: 02/24/2016 17:30 CDT Performed On: 02/24/2016 17:30 CDT by LORRIE SIDDIQUI ADLs II Hygiene Assistance Grid Back Rub : Moderate assistance Foot Care : Moderate assistance Hair Care : Moderate assistance Oral Care : Independent Leeanna Care : Moderate assistance Shower : Moderate assistance Upper Body Dressing(Clothing) : Moderate assistance Lower Body Dressing(Clothing) : Moderate assistance LORRIE SIDDIQUI - 02/24/2016 17:30 CDT Bowel Movement Last Date : 02/23/2016 CDT Standard Safety : Call device within reach, Gait belt, Non-Slip footwear LORRIE SIDDIQUI - 02/24/2016 17:30 CDT Source: [employer] Document Id: [id number] CDT!13 Miscelllucian - Sabrina Medina RViktor - 02/24/2016 2:17 PM CDT Adult Activities of Daily Living Adult Activities of Daily Living Entered On: 02/24/2016 14:17 CDT Performed On: 02/24/2016 14:17 CDT by SABRINA MEDINA RN ADLs I Assistive Device : Gait belt, Walker Ambulation Distance : 68 m(Converted to: 223 ft 1 inch(es), 6,800 cm) Ambulation Patient Effort : Good SABRINA MEDINA R RN - 02/24/2016 14:17 CDT Source: [facility] [employer]OWERCHART Document Id: [id number] CDT!5 Miscellaneous - Eliseo Quezada, Pharm.D., R.Ph. - 02/24/2016 2:00 PM CDT Anticoagulation Patient Intake Anticoagulation Patient Intake Entered On: 02/24/2016 14:01 CDT Performed On: 02/24/2016 14:00 CDT by ELISEO QUEZADA Plan INR goal range : 2.0 - 3.0 Duration of Therapy : Lifelong Tablet Size : 5 mg ELISEO QUEZADA - 02/24/2016 14:00 CDT Anticoagulation Management Plan Grid Date : [...] weeks Two weeks Plan completed by : ELISEO Fonseca - 02/24/2016 14:00 CDT ELISEO QUEZADA - 02/24/2016 14:00 CDT ELISEO QUEZADA - 02/24/2016 14:00 CDT ELISEO QUEZADA - 02/24/2016 14:00 CDT Date : 12/26/2013 CDT 01/30/2014 CDT [...] 03/10/2014 Other: 03/20/14 Plan completed by : ELISEO Hendrickson - 02/24/2016 14:00 CDT ELISEO QUEZADA - 02/24/2016 14:00 CDT ELISEO QUEZADA - 02/24/2016 14:00 CDT ELISEO QUEZADA - 02/24/2016 14:00 CDT Date : 03/20/2014 CDT 03/27/2014 CDT [...] completed by : darya lackey LM /pharmacy ELISEO QUEZADA - 02/24/2016 14:00 CDT ELISEO QUEZADA - 02/24/2016 14:00 CDT ELISEO QUEZADA - 02/24/2016 14:00 CDT ELISEO QUEZADA - 02/24/2016 14:00 CDT Date : 04/17/2014 CDT 04/24/2014 CDT 05/01/2014 HELP DESK TEAM LEADER 05/15/2014 HELP DESK TEAM LEADER Location of INR sample : Lab Lab [...] will trynoted dose called to mom Fabiola [phone] called to Fabiola/no changes Called to mother/Fabiola, not awareof any changes Recommend Recheck : One week One week Two weeks Two weeks Plan completed by : ELISEO WELCH - 02/24/2016 14:00 CDT ELISEO QUEZADA - 02/24/2016 14:00 CDT ELISEO QUEZADA - 02/24/2016 14:00 CDT ELISEO QUEZADA - 02/24/2016 14:00 CDT Date : 06/03/2014 HELP DESK TEAM LEADER 06/05/2014 HELP DESK TEAM LEADER 06/10/2014 HELP DESK TEAM LEADER 06/11/2014 HELP DESK TEAM LEADER Location of INR sample : Lab Type [...] Called motherFabiola. Dorita will be staying in [place] 2wks post-surgery & have INR drawn there. [...] lovenox tomorrow AM as ordered. INR in [place] for next several weeks as pt will be recovering there. Recommend Recheck : Other: depending on Dr. Henriquez's preop. Other: 06/18 Other: 06/13/14 Plan completed by : ELISEO GARSIA - 02/24/2016 14:00 CDT ELISEO QUEZADA - 02/24/2016 14:00 CDT ELISEO QUEZADA - 02/24/2016 14:00 CDT ELISEO QUEZADA - 02/24/2016 14:00 CDT Date : 06/14/2014 HELP DESK TEAM LEADER 06/14/2014 HELP DESK TEAM LEADER 06/16/2014 HELP DESK TEAM LEADER 06/23/2014 HELP DESK TEAM LEADER Location of INR sample : Clinic Lab Lab Type of Sample : Venous Venous INR Result : 1.3 on 06/13 2.4 faxed from lab 2.0 Warfarin Dose : (pt took 2.5mg 06/13) 5mg Sat and 5mg Sun (06/14 and 06/15) 5mg Mon and 2.5mg all other days 5mg Mon and 2.5mg all other days Total Weekly Warfarin Dose : 20 20 Comment : [place] lab called with INR result from 06/13, reported they left a message with Dr. Henriquez and hadn't heard back, spoke with motherFabiola, and gave doses, continue Lovenox and repeat INR 06/16, message left with INR clinic in [place] to contact [facility] Please contact [facility] on 06/16 for result and may call Fabiola at [phone] with instructions call to Fabiola/will stop Lovenox injections and take noted dose/pt has an appt here in [place] 06/23 so will do lab appt here that day Called to Fabiola/ Dorita will be back at [facility] by next draw. will have done on . no changes to meds/diet. Recommend Recheck : Two days One week Two weeks Plan completed by : ELISEO Small LM - 02/24/2016 14:00 CDT ELISEO QUEZADA - 02/24/2016 14:00 CDT ELISEO QUEZADA - 02/24/2016 14:00 CDT ELISEO QUEZADA - 02/24/2016 14:00 CDT Date : 07/10/2014 HELP DESK TEAM LEADER 07/17/2014 HELP DESK TEAM LEADER 07/31/2014 HELP DESK TEAM LEADER 09/11/2014 CDT Location of INR sample : Lab Lab Lab Lab Type of Sample : Venous Venous Venous INR Result : 1.9 [...] weeks Two weeks Plan completed by : ELISEO Lloyd - 02/24/2016 14:00 CDT ELISEO QUEZADA - 02/24/2016 14:00 CDT ELISEO QUEZADA - 02/24/2016 14:00 CDT ELISEO QUEZADA - 02/24/2016 14:00 CDT Date : 09/12/2014 CDT 09/25/2014 CDT [...] week Two weeks Plan completed by : ELISEO Singer - 02/24/2016 14:00 CDT ELISEO QUEZADA - 02/24/2016 14:00 CDT ELISEO QUEZADA - 02/24/2016 14:00 CDT ELISEO QUEZADA 02/24/2016 14:00 CDT Date : 10/23/2014 CDT 11/13/2014 CDT [...] week One week Plan completed by : ELISEO Valle 02/24/2016 14:00 CDT ELISEO QUEZADA Kennedy - 02/24/2016 14:00 CDT ELISEO QUEZADA - 02/24/2016 14:00 CDT ELISEO QUEZADA - 02/24/2016 14:00 CDT Date : 12/04/2014 CDT 12/18/2014 CDT [...] week Two weeks Plan completed by : ELISEO De Dios - 02/24/2016 14:00 CDT JATINBRIANAELISEO - 02/24/2016 14:00 CDT JATINBRIANAELISEO - 02/24/2016 14:00 CDT HUMPHREYBRIANAELISEO - 02/24/2016 14:00 CDT Date : 02/05/2015 CDT 02/26/2015 CDT [...] weeks Three weeks Plan completed by : ELISEO DURHAM - 02/24/2016 14:00 CDT HUMPHREYBRIANAELISEO - 02/24/2016 14:00 CDT HUMPHREYBRIANAELISEO - 02/24/2016 14:00 CDT HUMPHREYBRIANAELISEO - 02/24/2016 14:00 CDT Date : 04/09/2015 CDT 05/07/2015 HELP DESK TEAM LEADER 06/04/2015 HELP DESK TEAM LEADER 07/02/2015 HELP DESK TEAM LEADER Location of INR sample : Lab Lab [...] Other: 5 weeks Plan completed by : ELISEO Reina - 02/24/2016 14:00 CDT ELISEO QUEZADA - 02/24/2016 14:00 CDT ELISEO QUEZADA - 02/24/2016 14:00 CDT ELISEO QUEZADA - 02/24/2016 14:00 CDT Date : 08/06/2015 HELP DESK TEAM LEADER 09/17/2015 CDT 10/29/2015 CDT 11/12/2015 CDT Location [...] weeks One week Plan completed by : ELISEO Feliciano - 02/24/2016 14:00 CDT ELISEO QUEZADA - 02/24/2016 14:00 CDT ELISEO QUEZADA - 02/24/2016 14:00 CDT ELISEO QUEZADA - 02/24/2016 14:00 CDT Date : 11/19/2015 CDT 12/03/2015 CDT [...] month One month Plan completed by : ELISEO Taylor - 02/24/2016 14:00 CDT ELISEO QUEZADA - 02/24/2016 14:00 CDT ELISEO QUEZADA - 02/24/2016 14:00 CDT ELISEO QUEZADA - 02/24/2016 14:00 CDT Date : 02/19/2016 CDT 02/20/2016 CDT 02/21/2016 CDT 02/22/2016 CDT Location of INR sample : [facility] Type of Sample : Venous [...] day One day Plan completed by : Justin Dunn Pharm.D. MAC, PharmD PharmD. NELSON Leon PAUL A - 02/24/2016 14:00 CDT ELISEO QUEZADA - 02/24/2016 14:00 CDT ELISEO QUEZADA - 02/24/2016 14:00 CDT ELISEO QUEZADA - 02/24/2016 14:00 CDT Date : 02/23/2016 CDT 02/24/2016 CDT Location of INR sample : [facility] Type of Sample : Venous Venous INR Result : 2.45 2.85 Warfarin Dose : 2.5 mg 1mg Total Weekly Warfarin Dose : Comment : give 2.5 mg today and recheck INR tomorrow give 1 mg today and recheck INR tomorrow Recommend Recheck : One day One day Plan completed by : PharmD. Eliseo Leon PharmD. FRYKMAN, PAUL A - 02/24/2016 14:00 CDT ELISEO QUEZADA - 02/24/2016 14:00 CDT [email or web address] Document Id: [id number] CDT!586 Miscellaneous - Sabrina Medina, R.N. - 02/24/2016 11:23 AM CDT Adult Activities of Daily Living Adult Activities of Daily Living Entered On: 02/24/2016 11:23 CDT Performed On: 02/24/2016 11:23 CDT by SABRINA MEDINA RN ADLs I Activity Assistance : Stand-by assistance Assistive Device : Gait belt, Walker Ambulation Distance : 68 m(Converted to: 223 ft 1 inch(es), 6,800 cm) Ambulation Patient Effort : Good Range of Motion LUE : Active Range of Motion RUE : Active Range of Motion LLE : Active Range of Motion RLE : Active SABRINA MEDINA RN - 02/24/2016 11:23 CDT Source: [employer] Document Id: [id number] CDT!10 Sabrina Lindsay R.N. - 02/24/2016 8:32 AM CDT Adult Activities of Daily Living Adult Activities of Daily Living Entered On: 02/24/2016 8:34 CDT Performed On: 02/24/2016 8:32 CDT by SABRINA MEDINA RN ADLs I Patient Position : Sitting in bed Activity Status ADL : Up with assistance Activity Assistance : Supervision/Minimum 1 person assistance Assistive Device : Gait belt, Walker Range of Motion LUE : Active Range of Motion RUE : Active Range of Motion LLE : Active Range of Motion RLE : Active SABRINA MEDINA RN - 02/24/2016 8:32 CDT ADLs II Elimination Assistance Offered Q2H : Offered/Performed Bowel Movement Last Date : 02/23/2016 CDT Standard Safety : Bed alarm ON, Bed in low position, Call device within reach, Gait belt, ID band check, Non-Slip footwear, Rounds every 1 hour, Upper/Half- length side-rails up, Wheels locked SABRINA MEDINA RN - 02/24/2016 8:32 CDT Source: [employer] Document Id: [id number] CDT!14 Sabrina Lindsay R.N. - 02/24/2016 8:28 AM CDT Adult Ongoing Assessment Adult Ongoing Assessment Entered On: 02/24/2016 8:32 CDT Performed On: 02/24/2016 8:28 CDT by SABRINA MEDINA RN Respiratory Respiratory Patient Stated Symptoms : None Respirations : Unlabored Distress : None Respiratory Pattern : Regular All Lobes Breath Sounds : Clear Cough and Deep Breathe : Done Cough : None Sputum Amount : None Suction : None Airway : Patent SABRINA MEDINA RN 02/24/2016 8:28 CDT Cardiovascular CV Patient Stated Symptoms : None Heart Rhythm : Regular Heart Sounds ICU : S1S2 Antiembolism Device Yes/No : No Nail Bed Color : Meraux Capillary Refill : Less than 2 seconds Edema Assessment : Yes SABRINA MEDINA RN 02/24/2016 8:28 CDT Radial Pulse, Left : 2+ Normal Radial Pulse, Right : 2+ Normal Dorsalis Pedis Pulse, Left : 2+ Normal Dorsalis Pedis Pulse, Right : 2+ Normal SABRINA MEDINA RN 02/24/2016 8:28 CDT Skin Color : Normal for ethnicity Skin Description : Normal Skin Temperature : Warm Activity Tolerance : Without distress SABRINA MEDINA RN 02/24/2016 8:28 CDT Edema Details Edema Detailed Grid Pretibial Edema Ankle Edema Pedal Edema Right : 2+ mild/4mm 2+ mild/4mm 2+ mild/4mm SABRINA MEDINA RN 02/24/2016 8:28 CDT SABRINA MEDINA RN 02/24/2016 8:28 CDT SABRINA MEDINA RN 02/24/2016 8:28 CDT Neurological Neuro Patient Stated Symptoms : None Orientation : Oriented x 3 Level of Consciousness : Alert Gait : Steady Swallowing Difficulty/Aspiration Risk : None Last Well Time Known : Not applicable SABRINA MEDINA RN 02/24/2016 8:28 CDT Kathleen Coma Eye Opening Response Henley : Spontaneously Best Verbal Response Henley : Oriented Best Motor Response Henley : Obeys simple commands Kathleen Coma Score : 15 SABRINA MEDINA RN 02/24/2016 8:28 CDT Psycho/Emotional Affect/Behavior : Calm, Cooperative, Appropriate Pain Symptoms : No Feels Rested : Yes SABRINA MEDINA RN 02/24/2016 8:28 CDT Coping Grid Identifies effective strategies : Yes Uses effective strategies : Yes Reports increase in psychological comfort : Yes Indicates sense of control : Yes Stressors perceived within control : Yes Stable mood with appropriate affect : Yes Behaviors indicate use of coping mechanism : Yes Family supportive and involved in care : Yes Values/Beliefs incorporated appropriately : Yes ADAM SABRINAHIRAL Saleh 02/24/2016 8:28 CDT Safety Grid Vision, Hearing, Mobility Adequate to Meet Safety Needs : Yes ADAM SABRINAHIRAL Treviño RN - 02/24/2016 8:28 CDT Gastrointestinal GI Patient Stated Symptoms : None Abdomen Description : Rounded, Symmetric Abdomen Palpation : Non-Tender, Soft Bowel Movement Last Date : 02/23/2016 CDT Bowel Sounds All Quadrants : Present Passing Flatus : Yes SABRINA MEDINA RN - 02/24/2016 8:28 CDT Nutrition Appetite : Good Eating Difficulties : None Feeding Ability : Complete independence ADAMMICHAELSABRINAHIRAL Saleh 02/24/2016 8:28 CDT Genitourinary Patient Stated Symptoms : None Urinary Elimination : Voiding, no difficulties ADAM SABRINAHIRAL Saleh 02/24/2016 8:28 CDT Integumentary Integumentary Patient Stated Symptoms : None Skin Turgor : Elastic Skin Integrity : Intact Mucous Membrane Color : Meraux Mucous Membrane Description : Moist SABRINA MEDINA RN 02/24/2016 8:28 CDT Skin Abnormality/Location Grid Location : Lower leg Other: all over body, arms, butt, legs Laterality : Right Abnormality : Excoriation, Flaking, Other: tight Other: psoriasis ADAM SABRINAHIRAL Treviño RN - 02/24/2016 8:28 CDT ADAM, SABRINAHIRAL Treviño RN 02/24/2016 8:28 CDT Skin Color : Normal for ethnicity Skin Description : Normal Skin Temperature : Warm SABRINA MEDINA RN 02/24/2016 8:28 CDT Incision/Wound Incision/Wound Care Grid Activity : Assessed Wound Type : Other: cellulitis Location : Lower leg Laterality : Right Description : Dry Color : Red Drainage : None Surrounding Tissue : Erythema, Intact Wound Dressing : Open to air Neurovascular Status : Neurovascular intact distal to injury, Pulses distal to injury palpable, Skindistal to injury warm and pink SABRINA MEDINA RN 02/24/2016 8:28 CDT Mando Sensory Perception Mando : No impairment Moisture Mando : Rarely moist Activity Mando : Walks frequently Mobility Mando : Slightly limited Nutrition Mando : Excellent Friction and Shear Mando : Potential problem Mando Score : 21 SABRINA MEDINA RN 02/24/2016 8:28 CDT Musculoskeletal Musculoskeletal Patient Stated Symptoms : None Activity Tolerance : Without distress SABRINA MEDINA RN - 02/24/2016 8:28 CDT Peripheral IV Peripheral IV Assess/Intervention Grid Peripheral IV #1 Peripheral IV #2 Peripheral IV #3 IV Activity : Assessment Removal : Catheter intact Catheter intact, Hemostasis within expected timeframe Date of Insertion : 02/21/2016 CDT 02/23/2016 CDT Discontinued Date : 02/21/2016 CDT 02/23/2016 CDT IV Site : Antecubital Wrist Forearm Laterality : Left Left Left Catheter Size : 20 22 Catheter Type : Over the needle Site Condition : No complications Drainage Description : None Dressing/ Activity : Dry, Intact, Transparent Flow/ Patency : No complications SABRINA MEDINA RN - 02/24/2016 8:28 CDT SABRINA MEDINA RN - 02/24/2016 8:28 CDT SABRINA MEDINA RN - 02/24/2016 8:28 CDT Hendrich II Fall Risk Confusion/Disorientation Hendrich [...] II : 1 SABRINA MEDINA RN - 02/24/2016 8:28 CDT Safe Patient Handling Safe Pt Handling Independent : Yes - No equipment needed Safe Pt Handling Equipment Rec : Unmotorized Equipment SABRINA MEDINA RN - 02/24/2016 8:28 CDT Education General Patient Education Powergrid Topics : Exercise, Medication generic/brand names, purpose, action, Nutrition/Diet, Pain Management,Plan of care, Safety, fall, Turn/Cough/Deep breathing Individuals Taught : Patient Barriers to Learning : None evident Teaching Method : Explanation Teaching Evaluation : Verbalizes understanding SABRINA MEDINA RN - 02/24/2016 8:28 CDT [facility] Document Id: [id number] CDT!166 Miscellaneous - Deborah Dacosta 02/24/2016 2:45 AM CDT Adult Activities of Daily Living Adult Activities of Daily Living Entered On: 02/24/2016 2:55 CDT Performed On: 02/24/2016 2:45 CDT by DEBORAH DACOSTA RN I&O Urine Voided : 1 mL DEBORAH DACOSTA RN - 02/24/2016 2:54 CDT Source: [employer] Document Id: [id number] CDT!3 [place] - Whit Thornton C.NEstrella - 02/23/2016 9:49 PM CDT Adult Activities of Daily Living Adult Activities of Daily Living Entered On: 02/23/2016 21:50 CDT Performed On: 02/23/2016 21:49 CDT by WHIT THORNTONNEstrella ADLs II Hygiene Assistance Grid Bed Bath : Maximum assistance (Comment: Patients family helped get her ready for bed [WHIT THORNTONNEstrella - 02/23/2016 21:49 CDT] ) WHIT HTORNTONNEstrella - 02/23/2016 21:49 CDT Bowel Movement Last Date : 02/23/2016 CDT Standard Safety : Bed alarm ON, Bed in low position, Call device within reach, Non-Slip footwear WHIT THORNTONNEstrella - 02/23/2016 21:49 CDT Source: [employer] Document Id: [id number] CDT!6 Kolby - Deborah Dacosta - 02/23/2016 8:00 PM CDT Adult Activities of Daily Living Adult Activities of Daily Living Entered On: 02/23/2016 22:27 CDT Performed On: 02/23/2016 20:00 CDT by DEBORAH DACOSTA RN ADLs I Activity Status ADL : Ambulating in preciado Assistive Device : Gait belt, Walker Ambulation Distance : 68 m(Converted to: 223 ft 1 inch(es), 6,800 cm) Ambulation Patient Effort : Good DEBORAH DACOSTA RN - 02/23/2016 22:27 CDT ADLs II Hygiene Assistance Grid Oral Care : Moderate assistance Leeanna Care : Moderate assistance DEBORAH DACOSTA RN - 02/23/2016 22:27 CDT Bowel Movement Last Date : 02/23/2016 CDT Standard Safety : Bed alarm ON, Bed in low position, Call device within reach DEBORAH DACOSTA RN - 02/23/2016 22:27 CDT I&O Urine Voided : 1 mL Stool Count : 1 DEBORAH DACOSTA RN - 02/23/2016 22:27 CDT Source: [employer] Document Id: [id number] CDT!15 Miscellaneous - Deborah Dacosta - 02/23/2016 8:00 PM CDT Adult Ongoing Assessment Adult Ongoing Assessment Entered On: 02/23/2016 22:37 CDT Performed On: 02/23/2016 20:00 CDT by DEBORAH DACOSTA RN Respiratory Respiratory Patient Stated Symptoms : None Respirations : Unlabored Distress : None All Lobes Breath Sounds : Clear Cough : None DEBORAH DACOSTA RN - 02/23/2016 22:28 CDT Cardiovascular CV Patient Stated Symptoms : None Heart Rhythm : Regular Heart Sounds ICU : S1S2 Antiembolism Device Yes/No : Yes Nail Bed Color : Meraux Capillary Refill : Less than 2 seconds Edema Assessment : Yes DEBORAH DACOSTA RN - 02/23/2016 22:28 CDT Radial Pulse, Left : 1+ Thready Radial Pulse, Right : 1+ Thready Dorsalis Pedis Pulse, Left : 1+ Thready Dorsalis Pedis Pulse, Right : 1+ Thready DEBORAH DACOSTA RN - 02/23/2016 22:28 CDT Skin Color : Normal for ethnicity Skin Description : Dry Skin Temperature : Warm DEBORAH DACOSTA RN - 02/23/2016 22:28 CDT Edema Details Edema Detailed Grid Pretibial Edema Ankle Edema Pedal Edema Left : 1+ trace/2mm 1+ trace/2mm 1+ trace/2mm Right : 2+ mild/4mm 2+ mild/4mm 2+ mild/4mm DEBORAH DACOSTA RN - 02/23/2016 22:28 CDT DEBORAH DACOSTA RN - 02/23/2016 22:28 CDT DEBORAH DACOSTA RN - 02/23/2016 22:28 CDT Antiembolism Device Antiembolism Device Status : Patient refused DEBORAH DACOSTA RN - 02/23/2016 22:28 CDT Neurological Neuro Patient Stated Symptoms : None Orientation : Oriented x 3 Level of Consciousness : Alert Gait : Steady Swallowing Difficulty/Aspiration Risk : None DEBORAH DACOSTA RN - 02/23/2016 22:28 CDT Henley Coma Eye Opening Response Henley : Spontaneously Best Verbal Response Kathleen : Oriented Best Motor Response Kathleen : Obeys simple commands Kathleen Coma Score : 15 DEBORAH DACOSTA RN - 02/23/2016 22:28 CDT Psycho/Emotional Affect/Behavior : Calm, Cooperative, Anxious Pain Symptoms : Yes DEBORAH DACOSTA RN - 02/23/2016 22:28 CDT Pain Scale Pain Scale Verbal 0-10 : Open DEBORAH DACOSTA RN - 02/23/2016 22:28 CDT Pain Pain Assessment Grid Pain 1 Location : Lower leg Laterality : Right Intensity : 4 Interventions : Rest DEBORAH DACOSTA RN - 02/23/2016 22:28 CDT Gastrointestinal GI Patient Stated Symptoms : Diarrhea Abdomen Description : Rounded Abdomen Palpation : Non-Tender, Soft Bowel Movement Last Date : 02/23/2016 CDT Bowel Sounds All Quadrants : Hyperactive Stool Color : Brown Stool Description : Liquid, Loose Stool Amount : Large Passing Flatus : Yes PRANEETHDEBORAH JAMESON Danie RN - 02/23/2016 22:28 CDT Nutrition Appetite : Fair DEBORAH DACOSTA RN - 02/23/2016 22:28 CDT Genitourinary Patient Stated Symptoms : None PRANEETHDEBORAH WARREN Danie RN - 02/23/2016 22:28 CDT Integumentary Skin Integrity : Not intact PRANEETHDEBORAH JAMESON Danie RN - 02/23/2016 22:28 CDT Skin Abnormality/Location Grid Location : Lower leg Other: all over body, arms, butt, legs Laterality : Right Abnormality : Excoriation, Flaking, Other: tight Other: psoriasis DEBORAH DACOSTA RN - 02/23/2016 22:28 CDT DEBORAH DACOSTA RN - 02/23/2016 22:28 CDT Incision/Wound Incision/Wound Care Grid Activity : Assessed Wound Type : Other: cellulitis Location : Lower leg Laterality : Right Description : Edematous Color : Red Drainage : None Surrounding Tissue : Edema, Erythema Wound Dressing : Nonadhesive wrap DEBORAH DACOSTA RN - 02/23/2016 22:28 CDT Mando Sensory Perception Mando : No impairment Moisture Mando : Occasionally moist Activity Mando : Walks occasionally Mobility Mando : Slightly limited Nutrition Mando : Adequate Friction and Shear Mando : No apparent problem Mando Score : 19 DEBORAH DACOSTA RN - 02/23/2016 22:28 CDT Musculoskeletal Musculoskeletal Patient Stated Symptoms : None Activity Tolerance : Without distress DEBORAH DACOSTA RN - 02/23/2016 22:28 CDT Peripheral IV Peripheral IV Assess/Intervention Grid Peripheral IV #1 Peripheral IV #2 Peripheral IV #3 IV Activity : Start Removal : Catheter intact Catheter intact, Hemostasis within expected timeframe Date of Insertion : 02/21/2016 CDT 02/23/2016 CDT Discontinued Date : 02/21/2016 CDT 02/23/2016 CDT IV Site : Antecubital Wrist Forearm Laterality : Left Left Left Catheter Size : 20 22 Catheter Type : Over the needle Site Condition : No complications No complications Dressing/ Activity : Dry, Intact, Transparent Flow/ Patency : No complications DEBORAH DACOSTA RN - 02/23/2016 22:28 CDT DEBORAH DACOSTA RN - 02/23/2016 22:28 CDT DEBORAH DACOSTA RN - 02/23/2016 22:28 CDT Hendrich II Fall Risk Confusion/Disorientation Hendrich [...] Fall Risk Score Hendrich II : 2 DEBORAH DACOSTA Danie RN - 02/23/2016 22:28 CDT Safe Patient Handling Safe Pt Handling Independent : No Safe Pt Handling Supervision/Minimal Assistance : Yes - Unmotorized Equipment Safe Pt Handling Equipment Rec : Unmotorized Equipment DEBORAH DACOSTA RN - 02/23/2016 22:28 CDT Education General Patient Education Powergrid Topics : Activity limitations/expectations, Medication dosage, route, scheduling, Medication generic/brand names, purpose, action, Nutrition/Diet, Oral care, Pain Management, Plan of care, Safety, fall, Treatments/Procedures/Tests Individuals Taught : Patient Barriers to Learning : Cognitive deficit Teaching Method : Explanation Teaching Evaluation : Needs reinforcement, Verbalizes understanding DEBORAH DACOSTA Danie RN - 02/23/2016 22:28 CDT Source: [employer] Document Id: [id number] CDT!153 Miscellaneous - Bella Solis, C.N.A. - 02/23/2016 4:49 PM CDT Adult Activities of Daily Living Adult Activities of Daily Living Entered On: 02/23/2016 16:50 CDT Performed On: 02/23/2016 16:49 CDT by BELLA SOLIS CNA ADLs II Hygiene Assistance Grid Back Rub : Maximum assistance Foot Care : Maximum assistance Hair Care : Minimum assistance Leeanna Care : Moderate assistance Shower : Moderate assistance Upper Body Dressing(Clothing) : Maximum assistance Lower Body Dressing(Clothing) : Maximum assistance BELLA SOLIS CNA - 02/23/2016 16:49 CDT Bowel Movement Last Date : 02/23/2016 CDT Standard Safety : Bed alarm ON, Bed in low position, Call device within reach, Gait belt, Non-Slip footwear, Rounds every 1 hour BELLA SOLIS CNA - 02/23/2016 16:49 CDT Source: [employer] Document Id: [id number] CDT!12 Miscellaneous - Sabrina Barrios R.N. - 02/23/2016 8:34 AM CDT Adult Ongoing Assessment Adult Ongoing Assessment Entered On: 02/23/2016 8:42 CDT Performed On: 02/23/2016 8:34 CDT by SABRINA BARRIOS RN Respiratory Respiratory Patient Stated Symptoms : None Respirations : Unlabored Distress : None Respiratory Pattern : Regular All Lobes Breath Sounds : Clear Cough : None Sputum Amount : None Suction : None Airway : Patent SABRINA BARRIOS RN - 02/23/2016 8:34 CDT Cardiovascular CV Patient Stated Symptoms : None Heart Rhythm : Regular Heart Sounds ICU : S1S2 Antiembolism Device Yes/No : Yes Nail Bed Color : Meraux Capillary Refill : Less than 2 seconds Edema Assessment : Yes SABRINA BARRIOS RN - 02/23/2016 8:34 CDT Edema Details Edema Detailed Grid Pretibial Edema Ankle Edema Pedal Edema Right : 1+ trace/2mm, 2+ mild/4mm 2+ mild/4mm 2+ mild/4mm SABRINA BARRIOS RN - 02/23/2016 8:34 CDT SABRINA BARRIOS RN - 02/23/2016 8:34 CDT SABRINA BARRIOS RN - 02/23/2016 8:34 CDT Antiembolism Device Antiembolism Device : Sequential Compression Device Antiembolism Device Laterality : Bilateral Antiembolism Device Status : Patient refused SABRINA BARRIOS RN - 02/23/2016 8:34 CDT Neurological Neuro Patient Stated Symptoms : None Orientation : Oriented x 3 Level of Consciousness : Alert Gait : Steady Swallowing Difficulty/Aspiration Risk : None SABRINA BARRIOS RN - 02/23/2016 8:34 CDT Kathleen Coma Eye Opening Response [place] : Spontaneously Best Verbal Response Henley : Oriented Best Motor Response Kathleen : Obeys simple commands Henley Coma Score : 15 SABRINA BARRIOS RN - 02/23/2016 8:34 CDT Psycho/Emotional Affect/Behavior : Calm, Cooperative, Appropriate Pain Symptoms : Yes Feels Rested : Yes SABRINA BARRIOS RN - 02/23/2016 8:34 CDT Coping Grid Stressors perceived within control : Yes Stable mood with appropriate affect : Yes Behaviors indicate use of coping mechanism : Yes Family supportive and involved in care : Yes SABRINA BRARIOS RN 02/23/2016 8:34 CDT Safety Grid Vision, Hearing, Mobility Adequate to Meet Safety Needs : Yes KIMBERLISABRINA RN 02/23/2016 8:34 CDT Pain Scale Pain Scale Verbal 0-10 : Open KIMBERLISABRINA RN 02/23/2016 8:34 CDT Pain Pain Assessment Grid Pain 1 Location : Lower leg Laterality : Right Intensity : 6 KIMBERLISABRINA RN - 02/23/2016 8:34 CDT Gastrointestinal GI Patient Stated Symptoms : None Abdomen Description : Rounded, Symmetric Abdomen Palpation : Non-Tender, Soft Bowel Movement Last Date : 02/23/2016 CDT Bowel Sounds All Quadrants : Present Stool Color : Brown, Black Stool Description : Liquid, Loose Stool Amount : Moderate Passing Flatus : Yes SABRINA BARRIOS RN 02/23/2016 8:34 CDT Genitourinary Patient Stated Symptoms : None Urinary Elimination : Voiding, no difficulties Urine Color : Yellow Urine Description : Clear SABRINA BARRIOS RN - 02/23/2016 8:34 CDT Integumentary Integumentary Patient Stated Symptoms : None Skin Turgor : Elastic Skin Integrity : Intact Mucous Membrane Color : Meraux Mucous Membrane Description : Moist KIMBERLISABRINA RN 02/23/2016 8:34 CDT Skin Abnormality/Location Grid Location : Lower leg Other: all over body, arms, butt, legs Laterality : Right Abnormality : Excoriation, Flaking, Other: tight Other: psoriasis Treatment : Other: elevation Lotion SABRINA BARRIOS RN - 02/23/2016 8:34 CDT SABRINA BARRIOS RN 02/23/2016 8:34 CDT Skin Color : Normal for ethnicity Skin Description : Dry, Normal Skin Temperature : Warm SABRINA BARRIOS RN 02/23/2016 8:34 CDT Incision/Wound Incision/Wound Care Grid Activity : Assessed Wound Type : Other: cellulitis Location : Lower leg Laterality : Right Description : Edematous, Tender Color : Red, Meraux Drainage : None Surrounding Tissue : Dry, Edema, Erythema, Intact, Warmth Wound Dressing : Open to air SABRINA BARRIOS RN - 02/23/2016 8:34 CDT Mando Sensory Perception Mando : No impairment Moisture Mando : Rarely moist Activity Mando : Walks frequently Mobility Mando : No limitations Nutrition Mando : Excellent Friction and Shear Mando : No apparent problem Mando Score : 23 SABRINA BARRIOS RN - 02/23/2016 8:34 CDT Peripheral IV Peripheral IV Assess/Intervention Grid Peripheral IV #1 Peripheral IV #2 IV Activity : Assessment Removal : Catheter intact Date of Insertion : 02/21/2016 CDT Discontinued Date : 02/21/2016 CDT IV Site : Antecubital Wrist Laterality : Left Left Catheter Size : 20 Catheter Type : Over the needle Site Condition : No complications Drainage Description : None Infiltration Score : 0 Phlebitis Score : 0 Dressing/ Activity : Dry, Intact, Transparent Flow/ Patency : No complications SABRINA BARRIOS RN - 02/23/2016 8:34 CDT SABRINA BARRIOS RN - 02/23/2016 8:34 CDT Hendrich II Fall Risk Confusion/Disorientation Hendrich [...] Risk Score Hendrich II : 1 SABRINA BARRIOS RN - 02/23/2016 8:34 CDT Safe Patient Handling Safe Pt Handling Independent : No Safe Pt Handling Supervision/Minimal Assistance : Yes - Unmotorized Equipment Safe Pt Handling Equipment Rec : Unmotorized Equipment SABRINA BARRIOS RN - 02/23/2016 8:34 CDT Education General Patient Education Powergrid Topics : Activity limitations/expectations, Medication dosage, route, scheduling, Medication generic/brand names, purpose, action, Pain Management, Physical limitations, Plan of care, Safety, fall Individuals Taught : Patient Barriers to Learning : None evident Teaching Method : Explanation Teaching Evaluation : Needs reinforcement, Verbalizes understanding SABRINA BARRIOS RN - 02/23/2016 8:34 CDT Source: [employer] Document Id: [id number] CDT!157 Miscellaneous - Sabrina Barrios R.N. - 02/23/2016 8:33 AM CDT Adult Activities of Daily Living Adult Activities of Daily Living Entered On: 02/23/2016 8:33 CDT Performed On: 02/23/2016 8:33 CDT by SABRINA BARRIOS RN ADLs I Patient Position : Sitting in bed Activity Status ADL : Up with assistance Activity Assistance : Supervision/Minimum 1 person assistance Assistive Device : Gait belt, Walker Repositioning/Pressure Reducing Devices : Pillow SABRINA BARRIOS RN - 02/23/2016 8:33 CDT ADLs II Elimination Assistance Offered Q2H : Offered/Performed Bowel Movement Last Date : 02/23/2016 CDT Standard Safety : Bed alarm ON, Bed in low position, Call device within reach, Gait belt, ID band check, Non-Slip footwear, Rounds every 1 hour, Upper/Half- length side-rails up, Wheels locked SABRINA BARRIOS RN - 02/23/2016 8:33 CDT I&O Oral Intake : 120 mL SABRINA BARRIOS RN - 02/23/2016 8:42 CDT ADLs Adult Nutrition Diet Type : Diet -- 02/21/16 13:31:00 CDT, General (No Restrictions) Feeding Assistance : Independent Breakfast : 50 % SABRINA BARRIOS RN - 02/23/2016 8:42 CDT Source: [employer] Document Id: [id number] CDT!17 Miscellaneous - Eliseo Quezada, Pharm.D., R.Ph. - 02/23/2016 7:58 AM CDT Anticoagulation Patient Intake Anticoagulation Patient Intake Entered On: 02/23/2016 7:58 CDT Performed On: 02/23/2016 7:58 CDT by ELISEO QUEZADA Plan INR goal range : 2.0 - 3.0 Duration of Therapy : Lifelong Tablet Size : 5 mg ELISEO QUEZADA - 02/23/2016 7:58 CDT Anticoagulation Management Plan Grid Date : [...] weeks Two weeks Plan completed by : ELISEO Fonseca - 02/23/2016 7:58 CDT ELISEO QUEZADA - 02/23/2016 7:58 CDT ELISEO QUEZADA - 02/23/2016 7:58 CDT ELISEO QUEZADA - 02/23/2016 7:58 CDT Date : 12/26/2013 CDT 01/30/2014 CDT [...] a long time, no bleeding now left [facility] [place] for Fabiola,call if changes Recommend Recheck : Other: 5 weeks Other: 5 weeks Other: 03/10/2014 Other: 03/20/14 Plan completed by : ELISEO Hendrickson - 02/23/2016 7:58 CDT ELISEO QUEZADA - 02/23/2016 7:58 CDT ELISEO QUEZADA - 02/23/2016 7:58 CDT ELISEO QUEZADA - 02/23/2016 7:58 CDT Date : 03/20/2014 CDT 03/27/2014 CDT [...] completed by : darya lackey LM /pharmacy JATINELISEO WARREN Kennedy - 02/23/2016 7:58 CDT ELISEO QUEZADA Kennedy - 02/23/2016 7:58 CDT ELISEO QUEZADA Kennedy - 02/23/2016 7:58 CDT ELISEO QUEZADA Kennedy - 02/23/2016 7:58 CDT Date : 04/17/2014 CDT 04/24/2014 CDT 05/01/2014 HELP DESK TEAM LEADER 05/15/2014 HELP DESK TEAM LEADER Location of INR sample : Lab Lab [...] will trynoted dose called to mom Fabiola [phone] called to Fabiola/no changes Called to mother/Fabiola, not awareof any changes Recommend Recheck : One week One week Two weeks Two weeks Plan completed by : ELISEO WELCH - 02/23/2016 7:58 CDT ELISEO QUEZADA - 02/23/2016 7:58 CDT ELISEO QUEZADA - 02/23/2016 7:58 CDT ELISEO QUEZADA - 02/23/2016 7:58 CDT Date : 06/03/2014 HELP DESK TEAM LEADER 06/05/2014 HELP DESK TEAM LEADER 06/10/2014 HELP DESK TEAM LEADER 06/11/2014 HELP DESK TEAM LEADER Location of INR sample : Lab Type [...] Called motherFabiola. Dorita will be staying in [place] 2wks post-surgery & have INR drawn there. [...] lovenox tomorrow AM as ordered. INR in [place] for next several weeks as pt will be recovering there. Recommend Recheck : Other: depending on Dr. Henriquez's preop. Other: 06/18 Other: 06/13/14 Plan completed by : ELISEO GARSIA - 02/23/2016 7:58 CDT ELISEO QUEZADA - 02/23/2016 7:58 CDT ELISEO QUEZADA - 02/23/2016 7:58 CDT ELISEO QUEZADA - 02/23/2016 7:58 CDT Date : 06/14/2014 HELP DESK TEAM LEADER 06/14/2014 HELP DESK TEAM LEADER 06/16/2014 HELP DESK TEAM LEADER 06/23/2014 HELP DESK TEAM LEADER Location of INR sample : Clinic Lab Lab Type of Sample : Venous Venous INR Result : 1.3 on 06/13 2.4 faxed from lab 2.0 Warfarin Dose : (pt took 2.5mg 06/13) 5mg Sat and 5mg Sun (06/14 and 06/15) 5mg Mon and 2.5mg all other days 5mg Mon and 2.5mg all other days Total Weekly Warfarin Dose : 20 20 Comment : [place] lab called with INR result from 06/13, reported they left a message with Dr. Henriquez and hadn't heard back, spoke with mother, Fabiola, and gave doses, continue Lovenox and repeat INR 06/16, message left with INR clinic in [place] to contact CF Please contact [place] lab on 06/16 for result and may call Fabiola at [phone] with instructions call to Fabiola/ramon stop Lovenox injections and take noted dose/pt has an appt here in RW 06/23 so will do lab appt here that day Called to Fabiola/ Dorita will be back at [facility] by next draw. will have done on . no changes to meds/diet. Recommend Recheck : Two days One week Two weeks Plan completed by : ELISEO Small LM - 02/23/2016 7:58 CDT ELISEO QUEZADA - 02/23/2016 7:58 CDT ELISEO QUEZADA - 02/23/2016 7:58 CDT ELISEO QUEZADA - 02/23/2016 7:58 CDT Date : 07/10/2014 HELP DESK TEAM LEADER 07/17/2014 HELP DESK TEAM LEADER 07/31/2014 HELP DESK TEAM LEADER 09/11/2014 CDT Location of INR sample : [...] weeks Two weeks Plan completed by : ELISEO Lloyd - 02/23/2016 7:58 CDT ELISEO QUEZADA - 02/23/2016 7:58 CDT ELISEO QUEZADA - 02/23/2016 7:58 CDT ELISEO QUEZADA - 02/23/2016 7:58 CDT Date : 09/12/2014 CDT 09/25/2014 CDT [...] week Two weeks Plan completed by : ELISEO Singer - 02/23/2016 7:58 CDT ELISEO QUEZADA - 02/23/2016 7:58 CDT ELISEO QUEZADA - 02/23/2016 7:58 CDT ELISEO QUEZADA - 02/23/2016 7:58 CDT Date : 10/23/2014 CDT 11/13/2014 CDT [...] is she is 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 Sanivation/no bleeding/consult with Quintin/Pharmacy and called Mom with orders Per Meredith Hernandez, no changes, has been drinking some Kiwi Juice, no bleeding/consult with Quintin/Pharmacy Called to mom /Fabiola, no changes, rev'd w/BCarbria/Pharmacy Recommend Recheck : Three weeks One week One week One week Plan completed by : ELISEO Valle - 02/23/2016 7:58 CDT ELISEO QUEZADA - 02/23/2016 7:58 CDT ELISEO QUEZADA - 02/23/2016 7:58 CDT ELISEO QUEZADA - 02/23/2016 7:58 CDT Date : 12/04/2014 CDT 12/18/2014 CDT [...] this past wk & took Midol per david/Fabiola, no Lovenox per Dr Henriquez, rev'd dose w/LZorn/Pharmacy Called to mom/Fabiola, no changes Recommend Recheck : Two weeks Three weeks One week Two weeks Plan completed by : darya YINBRIANAELISEO - 02/23/2016 7:58 CDT JATINBRIANAELISEO - 02/23/2016 7:58 CDT HUMPHREYBRIANAELISEO - 02/23/2016 7:58 CDT ELISEO QUEZADA - 02/23/2016 7:58 CDT Date : 02/05/2015 CDT 02/26/2015 CDT [...] weeks Three weeks Plan completed by : ELISEO DURHAM - 02/23/2016 7:58 CDT ELISEO QUEZADA - 02/23/2016 7:58 CDT ELISEO QUEZADA - 02/23/2016 7:58 CDT ELISEO QUEZADA - 02/23/2016 7:58 CDT Date : 04/09/2015 CDT 05/07/2015 HELP DESK TEAM LEADER 06/04/2015 HELP DESK TEAM LEADER 07/02/2015 HELP DESK TEAM LEADER Location of INR sample : Lab Lab [...] Other: 5 weeks Plan completed by : ELISEO Reina - 02/23/2016 7:58 CDT ELISEO QUEZADA - 02/23/2016 7:58 CDT ELISEO QUEZADA - 02/23/2016 7:58 CDT ELISEO QUEZADA - 02/23/2016 7:58 CDT Date : 08/06/2015 HELP DESK TEAM LEADER 09/17/2015 CDT 10/29/2015 CDT 11/12/2015 CDT Location [...] weeks One week Plan completed by : ELISEO Feliciano - 02/23/2016 7:58 CDT ELISEO QUEZADA - 02/23/2016 7:58 CDT ELISEO QUEZADA - 02/23/2016 7:58 CDT ELISEO QUEZADA - 02/23/2016 7:58 CDT Date : 11/19/2015 CDT 12/03/2015 CDT [...] month One month Plan completed by : ELISEO Taylor - 02/23/2016 7:58 CDT ELISEO QUEZADA - 02/23/2016 7:58 CDT ELISEO QUEZADA - 02/23/2016 7:58 CDT ELISEO QUEZADA - 02/23/2016 7:58 CDT Date : 02/19/2016 CDT 02/20/2016 CDT 02/21/2016 CDT 02/22/2016 CDT Location of INR sample : [facility] Type of [...] completed by : Tyshawn Brizuela, Pharm.DMichael Brizuela Pharm.DMichael ASTUDILLO, PharmD Rea LeonDELISEO ROSENBAUM - 02/23/2016 7:58 CDT ELISEO QUEZADA - 02/23/2016 7:58 CDT ELISEO QUEZADA - 02/23/2016 7:58 CDT ELISEO QUEZADA - 02/23/2016 7:58 CDT Date : 02/23/2016 CDT Location of INR sample : Hospital Type of Sample : Venous INR Result : 2.45 Warfarin Dose : 2.5 mg Total Weekly Warfarin Dose : Comment : give 2.5 mg today and recheck INR tomorrow Recommend Recheck : One day Plan completed by : Eliseo Quezada PharmD. ELISEO QUEZADA - 02/23/2016 7:58 CDT Source: [employer] Document Id: [id number] CDT!577 Kolby - Whit Thortnon C.N.AMichael - 02/22/2016 10:31 PM CDT Adult Activities of Daily Living Adult Activities of Daily Living Entered On: 02/22/2016 22:33 CDT Performed On: 02/22/2016 22:31 CDT by WHIT THORNTONN.Alicia ADLs II Hygiene Assistance Grid Bed Bath : Maximum assistance (Comment: Patients family helped with her cares tongreer [WHIT THORNTONNEstrella - 02/22/2016 22:31 CDT] ) WHIT THORNTONNEstrella - 02/22/2016 22:31 CDT Bowel Movement Last Date : 02/22/2016 CDT Standard Safety : Bed in low position, Call device within reach, Non-Slip footwear WHIT THORNTONNEstrella - 02/22/2016 22:31 CDT Source: [employer] Document Id: [id number] CDT!6 Kolby - Sita Harris RMichaelN. - 02/22/2016 8:14 PM CDT Adult Activities of Daily Living Adult Activities of Daily Living Entered On: 02/22/2016 20:14 CDT Performed On: 02/22/2016 20:14 CDT by SITA HARRIS RN ADLs I Patient Position : Elevate Heels off bed, Elevate head of bed 30 degrees, Elevate head of bed 45 degrees, Lying on left side, Lying on right side, Sitting in bed, Sitting in chair Activity Status ADL : Ambulating in preciado, Ambulating in room Activity Assistance : Stand-by assistance Assistive Device : Walker Repositioning/Pressure Reducing Devices : Pillow Ambulation Patient Effort : Good Antiembolism Device : Sequential Compression Device Antiembolism Device Laterality : Left SITA HARRIS RN - 02/22/2016 20:14 CDT ADLs II Elimination Assistance Offered Q2H : Offered/Performed Bowel Movement Last Date : 02/22/2016 CDT Standard Safety : Bed in low position, Call device within reach, Gait belt, ID band check, Night light, Non-Slip footwear, Rounds every 1 hour, Rounds every 2 hours, Toilet every 2 hours, Upper/Half-length side-rails up SITA HARRIS RN - 02/22/2016 20:14 CDT ADLs Adult Nutrition Diet Type : Diet -- 02/21/16 13:31:00 CDT, General (No Restrictions) Feeding Assistance : Independent Evening Snack : 100 % SITA HARRIS RN - 02/22/2016 20:14 CDT Source: [employer] Document Id: [id number] CDT!18 Miscellaneous - Sita Harris R.N. - 02/22/2016 8:08 PM CDT Adult Ongoing Assessment Adult Ongoing Assessment Entered On: 02/22/2016 20:13 CDT Performed On: 02/22/2016 20:08 CDT by SITA HARRIS RN Respiratory Respiratory Patient Stated Symptoms : None Respirations : Unlabored Distress : None Respiratory Pattern : Regular All Lobes Breath Sounds : Clear Cough and Deep Breathe : Done Cough : None Sputum Amount : None Suction : None SITA HARRIS RN - 02/22/2016 20:08 CDT Cardiovascular CV Patient Stated Symptoms : None Heart Rhythm : Regular Heart Sounds ICU : S1S2 Antiembolism Device Yes/No : Yes Nail Bed Color : Meraux Capillary Refill : Less than 2 seconds Edema Assessment : Yes SITA HARRIS ANGELINE - 02/22/2016 20:08 CDT Dorsalis Pedis Pulse, Left : 2+ Normal Dorsalis Pedis Pulse, Right : 2+ Normal SITA HARRIS - 02/22/2016 20:08 CDT Skin Color : Normal for ethnicity Skin Description : Dry Skin Temperature : Warm Activity Tolerance : Without distress SITA HARRIS ANGELINE - 02/22/2016 20:08 CDT Edema Details Edema Detailed Grid Pretibial Edema Ankle Edema Pedal Edema Bilateral : 1+ trace/2mm 1+ trace/2mm 1+ trace/2mm SITA HARRIS ANGELINE - 02/22/2016 20:08 CDT SITA HARRIS ANGELINE - 02/22/2016 20:08 CDTHSITA ÁLVAREZ - 02/22/2016 20:08 CDT Antiembolism Device Antiembolism Device : Sequential Compression Device Antiembolism Device Laterality : Left Antiembolism Device Status : Patient refused SITA HARRIS - 02/22/2016 20:08 CDT Neurological Neuro Patient Stated Symptoms : None Orientation : Oriented x 3 Level of Consciousness : Alert Gait : Steady Swallowing Difficulty/Aspiration Risk : None Last Well Time Known : Not applicable SITA HARRIS - 02/22/2016 20:08 CDT Kathleen Coma Eye Opening Response Kathleen : Spontaneously Best Verbal Response Henley : Oriented Best Motor Response Henley : Obeys simple commands Kathleen Coma Score : 15 SITA HARRIS ANGELINE - 02/22/2016 20:08 CDT Psycho/Emotional Affect/Behavior : Calm, Cooperative, Appropriate Pain Symptoms : Yes SITA HARRIS ANGELINE - 02/22/2016 20:08 CDT Safety Grid Vision, Hearing, Mobility Adequate to Meet Safety Needs : Yes SITA HARRIS ANGELINE - 02/22/2016 20:08 CDT Pain Scale Pain Scale Verbal 0-10 : Open SITA HARRIS ANGELINE - 02/22/2016 20:08 CDT Pain Pain Assessment Grid Pain 1 Location : Foot Laterality : Right Intensity : 7 SITA HARRIS RN - 02/22/2016 20:08 CDT Gastrointestinal GI Patient Stated Symptoms : None Abdomen Description : Obese, Rounded Abdomen Palpation : Soft Bowel Movement Last Date : 02/22/2016 CDT Bowel Sounds All Quadrants : Present Passing Flatus : Yes SITA HARRIS RN - 02/22/2016 20:08 CDT Nutrition Appetite : Excellent Eating Difficulties : None Feeding Ability : Complete independence SITA HARRIS RN - 02/22/2016 20:08 CDT Genitourinary Patient Stated Symptoms : None SITA HARRIS RN - 02/22/2016 20:08 CDT Integumentary Integumentary Patient Stated Symptoms : Rash Skin Turgor : Elastic Skin Integrity : Not intact Mucous Membrane Color : Meraux Mucous Membrane Description : Moist SITA HARRIS ANGELINE - 02/22/2016 20:08 CDT Skin Abnormality/Location Grid Location : Lower leg Other: all over body, arms, butt, legs Laterality : Right Abnormality : Excoriation, Flaking, Other: tight Other: psoriasis Treatment : Lotion Lotion SITA HARRIS RN - 02/22/2016 20:08 CDT SITA HARRIS RN - 02/22/2016 20:08 CDT Skin Color : Normal for ethnicity Skin Description : Dry Skin Temperature : Warm SITA HARRIS ANGELINE - 02/22/2016 20:08 CDT Incision/Wound Incision/Wound Care Grid Activity : Assessed Wound Type : Other: cellulitis Location : Lower leg Laterality : Right Description : Dry Color : Red Drainage : None SITA HARRIS ANGELINE - 02/22/2016 20:08 CDT Mando Sensory Perception Mando : No impairment Moisture Mando : Rarely moist Activity Mando : Walks frequently Mobility Mando : No limitations Nutrition Mando : Excellent Friction and Shear Mando : No apparent problem Mando Score : 23 SITA HARRIS ANGELINE - 02/22/2016 20:08 CDT Peripheral IV Peripheral IV Assess/Intervention Grid Peripheral IV #1 Peripheral IV #2 IV Activity : Discontinue Start, Assessment Removal : Catheter intact Date of Insertion : 02/21/2016 CDT Discontinued Date : 02/21/2016 CDT IV Site : Antecubital Wrist Laterality : Left Left Catheter Size : 20 Catheter Type : Over the needle Site Condition : No complications Drainage Description : None Dressing/ Activity : Dry Flow/ Patency : No complications SITA HARRIS RN - 02/22/2016 20:08 CDT SITA HARRIS RN - 02/22/2016 20:08 CDT Hendrich II Fall Risk Confusion/Disorientation Hendrich [...] steps Fall Risk Score Hendrich II : 1 SITA HARRIS RN - 02/22/2016 20:08 CDT Source: [employer] Document Id: [id number] CDT!142 Kolby - Evelina Gilliam, C.N.A. - 02/22/2016 5:30 PM CDT Adult Activities of Daily Living Adult Activities of Daily Living Entered On: 02/22/2016 17:31 CDT Performed On: 02/22/2016 17:30 CDT by EVELINA GILLIAM CNA ADLs II Hygiene Assistance Grid Foot Care : Maximum assistance Hair Care : Moderate assistance Leeanna Care : Maximum assistance Upper Body Dressing(Clothing) : Maximum assistance Lower Body Dressing(Clothing) : Maximum assistance EVELINA GILLIAM CNA - 02/22/2016 17:30 CDT Source: [employer] Document Id: [id number] CDT!8 Kolby - Deborah Dacosta - 02/22/2016 12:19 PM CDT Adult Activities of Daily Living Adult Activities of Daily Living Entered On: 02/22/2016 12:19 CDT Performed On: 02/22/2016 12:19 CDT by DEBORAH DACOSTA RN ADLs Adult Nutrition Diet Type : Diet -- 02/21/16 13:31:00 CDT, General (No Restrictions) Lunch : 40 % DEBORAH DACOSTA RN - 02/22/2016 12:19 CDT Source: [employer] Document Id: [id number] CDT!4 Kolby - Bella Solis, C.N.A. - 02/22/2016 10:13 AM CDT Adult Activities of Daily Living Adult Activities of Daily Living Entered On: 02/22/2016 10:14 CDT Performed On: 02/22/2016 10:13 CDT by BELLA SOLIS CNA ADLs II Hygiene Assistance Grid Leeanna Care : family did cares Upper Body Dressing(Clothing) : family did cares Lower Body Dressing(Clothing) : family did cares BELLA SOLIS CNA - 02/22/2016 10:13 CDT Standard Safety : Bed alarm ON, Bed in low position, Call device within reach, Chair Alarm, Gait belt, Non-Slip footwear, Rounds every 1 hour BELLA SOLIS CNA - 02/22/2016 10:13 CDT Source: [employer] Document Id: [id number] CDT!7 Kolby - Sabrina Barrios R.N. - 02/22/2016 9:53 AM CDT Adult Activities of Daily Living Adult Activities of Daily Living Entered On: 02/22/2016 9:53 CDT Performed On: 02/22/2016 9:53 CDT by SABRINA BARRIOS RN ADLs I Patient Position : Sitting in bed Activity Status ADL : Up with assistance Activity Assistance : Moderate 1 person assistance Assistive Device : Gait belt, Walker Repositioning/Pressure Reducing Devices : Pillow SABRINA BARRIOS RN - 02/22/2016 9:53 CDT ADLs II Elimination Assistance Offered Q2H : Offered/Performed Standard Safety : Bed alarm ON, Bed in low position, Call device within reach, ID band check, Non-Slip footwear, Rounds every 1 hour, Upper/Half-length side- rails up, Wheels locked SABRINA BARRIOS RN - 02/22/2016 9:53 CDT ADLs Adult Nutrition Diet Type : Diet -- 02/21/16 13:31:00 CDT, General (No Restrictions) SABRINA BARRIOS RN - 02/22/2016 9:53 CDT Source: [employer] Document Id: [id number] CDT!12 Miscellaneous - Sabrina Barrios RViktor - 02/22/2016 9:49 AM CDT Adult Ongoing Assessment Adult Ongoing Assessment Entered On: 02/22/2016 9:53 CDT Performed On: 02/22/2016 9:49 CDT by SABRINA BARRIOS RN Respiratory Respirations : Shallow SABRINA BARRIOS RN - 02/22/2016 18:54 CDT Respiratory Detailed Assessment : Yes SABRINA BARRIOS RN - 02/22/2016 14:45 CDT Respiratory Patient Stated Symptoms : None All Lobes Breath Sounds : Clear, Diminished Cough : None Sputum Amount : None Airway : Patent SABRINA BARRIOS RN - 02/22/2016 9:49 CDT Resp Detailed Breath Sounds Assessment Grid ARSENIO : Clear RUL : Clear RML : Clear LLL : Diminished RLL : Diminished SABRINA BARRIOS RN - 02/22/2016 14:45 CDT Cardiovascular CV Patient Stated Symptoms : None Heart Rhythm : Regular Heart Sounds ICU : S1S2 Antiembolism Device Yes/No : Yes Nail Bed Color : Meraux Capillary Refill : Less than 2 seconds Edema Assessment : Yes SABRINA BARRIOS RN - 02/22/2016 14:33 CDT Dorsalis Pedis Pulse, Left : 2+ Normal Dorsalis Pedis Pulse, Right : 2+ Normal SABRINA BARRIOS RN 02/22/2016 14:33 CDT Skin Color : Normal for ethnicity Skin Description : Normal Skin Temperature : Warm Activity Tolerance : Without distress SABRINA BARRIOS RN 02/22/2016 14:33 CDT Edema Details Edema Detailed Grid Pretibial Edema Ankle Edema Pedal Edema Right : 1+ trace/2mm 2+ mild/4mm 2+ mild/4mm SABRINA BARRIOS RN - 02/22/2016 14:33 CDT SABRINA BARRIOS RN 02/22/2016 14:33 CDT CHRISTYKARINSABRINA RN 02/22/2016 14:33 CDT Antiembolism Device Antiembolism Device : Sequential Compression Device Antiembolism Device Laterality : Bilateral Antiembolism Device Status : Patient refused SABRINA BARRIOS RN 02/22/2016 14:33 CDT Neurological Neuro Patient Stated Symptoms : None Orientation : Oriented x 3 Level of Consciousness : Alert Gait : Steady Swallowing Difficulty/Aspiration Risk : None SABRINA BARRIOS RN 02/22/2016 14:33 CDT Kathleen Coma Eye Opening Response Kathleen : Spontaneously Best Verbal Response Henley : Oriented Best Motor Response Henley : Obeys simple commands Henley Coma Score : 15 KIMBERLISABRINA RN 02/22/2016 14:33 CDT Psycho/Emotional Affect/Behavior : Calm, Cooperative, Appropriate Pain Symptoms : Yes Feels Rested : Yes SABRINA BARRIOS RN 02/22/2016 14:33 CDT Coping Grid Identifies effective strategies : Yes Uses effective strategies : Yes Reports increase in psychological comfort : Yes Indicates sense of control : Yes Stressors perceived within control : Yes Stable mood with appropriate affect : Yes Behaviors indicate use of coping mechanism : Yes Family supportive and involved in care : Yes Values/Beliefs incorporated appropriately : Yes SABRINA BARRIOS RN 02/22/2016 14:33 CDT Safety Grid Vision, Hearing, Mobility Adequate to Meet Safety Needs : Yes SABRINA BARRIOS RN 02/22/2016 14:33 CDT Pain Scale Pain Scale Verbal 0-10 : Open SABRINA BARRIOS RN 02/22/2016 14:33 CDT Pain Pain Assessment Grid Pain 1 Pain 2 Location : Lower leg Knee Laterality : Right Right Intensity : 7 7 Acceptable Intensity : 4 4 SABRINA BARRIOS RN 02/22/2016 14:33 CDT SABRINA BARRIOS RN - 02/22/2016 14:33 CDT Gastrointestinal Abdomen Palpation : Non-Tender, Soft Bowel Movement Last Date : 02/22/2016 CDT Bowel Sounds All Quadrants : Present Passing Flatus : Yes SABRINA BARRIOS Marsha MARCUS - 02/22/2016 16:08 CDT GI Patient Stated Symptoms : None Abdomen Description : Rounded, Symmetric SABRINA BARRIOS ANGELINE - 02/22/2016 14:45 CDT Genitourinary Patient Stated Symptoms : None Urinary Elimination : Diapers, Voiding, no difficulties Urine Color : Yellow Urine Description : Clear KIMBERLI SABRINA Marsha MARCUS - 02/22/2016 16:08 CDT Integumentary Integumentary Patient Stated Symptoms : None Skin Turgor : Elastic Skin Integrity : Intact Mucous Membrane Color : Meraux Mucous Membrane Description : Moist Skin Color : Normal for ethnicity Skin Description : Normal Skin Temperature : Warm KIMBERLI SABRINAHIRAL Larson RN - 02/22/2016 19:07 CDT KIMBERLI SABRINAHIRAL Larson RN - 02/22/2016 19:07 CDT Skin Abnormality/Location Grid Location : Lower leg Other: all over body, arms, butt, legs Laterality : Right Abnormality : Excoriation, Flaking, Other: tight Other: psoriasis KIMBERLI SABRINAHIRAL Larson RN - 02/22/2016 16:08 CDT KIMBERLI SABRINAHIRAL Larson RN - 02/22/2016 16:08 CDT Incision/Wound Incision/Wound Care Grid Activity : Assessed Wound Type : Other: cellulitis Location : Lower leg Laterality : Right Description : Dry Drainage : None Wound Dressing : Open to air KIMBERLI SABRINAHIRAL Larson RN - 02/22/2016 18:54 CDT Mando Sensory Perception Mando : No impairment Moisture Mando : Rarely moist Activity Mando : Walks frequently Mobility Mando : No limitations Nutrition Mando : Excellent Friction and Shear Mando : No apparent problem Mando Score : 23 KIMBERLI SABRINAHIRAL Larson RN - 02/22/2016 19:07 CDT Musculoskeletal Musculoskeletal Patient Stated Symptoms : None KIMBERLI SABRINAHIRAL Larson RN - 02/22/2016 19:07 CDT Peripheral IV Peripheral IV Assess/Intervention Grid Peripheral IV #1 Peripheral IV #2 IV Activity : Assessment Removal : Catheter intact Date of Insertion : 02/21/2016 CDT Discontinued Date : 02/21/2016 CDT IV Site : Antecubital Wrist Laterality : Left Left Catheter Size : 20 Catheter Type : Over the needle Site Condition : No complications Infiltration Score : 0 Phlebitis Score : 0 Dressing/ Activity : Dry, Intact, Transparent Flow/ Patency : No complications SABRINA BARRIOS RN - 02/22/2016 19:07 CDT SABRINA BARRIOS RN - 02/22/2016 19:07 CDT Hendrich II Fall Risk Confusion/Disorientation Hendrich [...] Risk Score Hendrich II : 1 SABRINA BARRIOS RN - 02/22/2016 19:07 CDT Safe Patient Handling Safe Pt Handling Independent : No Safe Pt Handling Supervision/Minimal Assistance : Yes - Unmotorized Equipment Safe Pt Handling Equipment Rec : Unmotorized Equipment SABRINA BARRIOS RN - 02/22/2016 19:07 CDT Education General Patient Education Power[employer] Topics : Activity limitations/expectations, Medication dosage, route, scheduling, Medication generic/brand names, purpose, action, Pain Management, Plan of care, Safety, fall Individuals Taught : Patient Barriers to Learning : Cognitive deficit Teaching Method : Explanation Teaching Evaluation : Needs reinforcement, Verbalizes understanding SABRINA BARRIOS RN - 02/22/2016 19:07 CDT Source: [facility] [employer] Document Id: [id number] CDT!174 Miscellaneous - Eliseo Quezada, Pharm.D., R.Ph. - 02/22/2016 8:29 AM CDT Anticoagulation Patient Intake Anticoagulation Patient Intake Entered On: 02/22/2016 8:31 CDT Performed On: 02/22/2016 8:29 CDT by ELISEO QUEZADA Plan INR goal range : 2.0 - 3.0 Duration of Therapy : Lifelong Tablet Size : 5 mg ELISEO QUEZADA - 02/22/2016 8:29 CDT Anticoagulation Management Plan Grid Date : [...] weeks Two weeks Plan completed by : ELISEO Fonseca 02/22/2016 8:29 CDT ELISEO QUEZADA - 02/22/2016 8:29 CDT ELISEO QUEZADA - 02/22/2016 8:29 CDT ELISEO QUEZADA - 02/22/2016 8:29 CDT Date : 12/26/2013 CDT 01/30/2014 CDT [...] 03/10/2014 Other: 03/20/14 Plan completed by : ELISEO Hendrickson 02/22/2016 8:29 CDT ELISEO QUEZADA - 02/22/2016 8:29 CDT ELISEO QUEZADA - 02/22/2016 8:29 CDT ELISEO QUEZADA - 02/22/2016 8:29 CDT Date : 03/20/2014 CDT 03/27/2014 CDT [...] Other: Plan completed by : darya lackey [facility]/pharmacy ELISEO QUEZADA - 02/22/2016 8:29 CDT ELISEO QUEZADA - 02/22/2016 8:29 CDT ELISEO QUEZADA - 02/22/2016 8:29 CDT ELISEO QUEZADA - 02/22/2016 8:29 CDT Date : 04/17/2014 CDT 04/24/2014 CDT 05/01/2014 HELP DESK TEAM LEADER 05/15/2014 HELP DESK TEAM LEADER Location of INR sample : Lab Lab [...] will trynoted dose called to mom Fabiola [phone] called to Fabiola/no changes Called to mother/Fabiola, not awareof any changes Recommend Recheck : One week One week Two weeks Two weeks Plan completed by : MARIA GUADALUPE FITCH OZZY ELISEO PARSONS - 02/22/2016 8:29 CDT ELISEO QUEZADA - 02/22/2016 8:29 CDT ELISEO QUEZADA - 02/22/2016 8:29 CDT ELISEO QUEZADA - 02/22/2016 8:29 CDT Date : 06/03/2014 HELP DESK TEAM LEADER 06/05/2014 HELP DESK TEAM LEADER 06/10/2014 HELP DESK TEAM LEADER 06/11/2014 HELP DESK TEAM LEADER Location of INR sample : Lab Type [...] to surgery (06/06) with no bridging. Called motherFabiolaMichael Swann will be staying in [place] 2wks post-surgery & have INR drawn there. [...] lovenox tomorrow AM as ordered. INR in [place] for next several weeks as pt will be recovering there. Recommend Recheck : Other: depending on Dr. Henriquez's preop. Other: 06/18 Other: 06/13/14 Plan completed by : ELISEO GARSIA - 02/22/2016 8:29 CDT ELISEO QUEZADA - 02/22/2016 8:29 CDT ELISEO QUEZADA - 02/22/2016 8:29 CDT ELISEO QUEZADA - 02/22/2016 8:29 CDT Date : 06/14/2014 HELP DESK TEAM LEADER 06/14/2014 HELP DESK TEAM LEADER 06/16/2014 HELP DESK TEAM LEADER 06/23/2014 HELP DESK TEAM LEADER Location of INR sample : Clinic Lab Lab Type of Sample : Venous Venous INR Result : 1.3 on 06/13 2.4 faxed from lab 2.0 Warfarin Dose : (pt took 2.5mg 06/13) 5mg Sat and 5mg Sun (06/14 and 06/15) 5mg Mon and 2.5mg all other days 5mg Mon and 2.5mg all other days Total Weekly Warfarin Dose : 20 20 Comment : [place] lab called with INR result from 06/13, reported they left a message with Dr. Henriquez and hadn't heard back, spoke with mother, Fabiola, and gave doses, continue Lovenox and repeat INR 06/16, message left with INR clinic in to contact CF Please contact [place] lab on 06/16 for result and may call Fabiola at [phone] with instructions call to Fabiola/will stop Lovenox injections and take noted dose/pt has an appt here in 06/23 so will do lab appt here that day Called to Fabiola/ Dorita will be back at [facility] by next draw. will have done on . no changes to meds/diet. Recommend Recheck : Two days One week Two weeks Plan completed by : ELISEO Small LM - 02/22/2016 8:29 CDT ELISEO QUEZADA - 02/22/2016 8:29 CDT ELISEO QUEZADA - 02/22/2016 8:29 CDT ELISEO QUEZADA - 02/22/2016 8:29 CDT Date : 07/10/2014 HELP DESK TEAM LEADER 07/17/2014 HELP DESK TEAM LEADER 07/31/2014 HELP DESK TEAM LEADER 09/11/2014 CDT Location of INR sample : [...] weeks Two weeks Plan completed by : ELISEO Lloyd - 02/22/2016 8:29 CDT ELISEO QUEZADA - 02/22/2016 8:29 CDT ELISEO QUEZADA - 02/22/2016 8:29 CDT ELISEO QUEZADA - 02/22/2016 8:29 CDT Date : 09/12/2014 CDT 09/25/2014 CDT [...] week Two weeks Plan completed by : ELISEO Singer 02/22/2016 8:29 CDT ELISEO QUEZADA - 02/22/2016 8:29 CDT ELISEO QUEZADA - 02/22/2016 8:29 CDT JATINBRIANA ELISEO Benavides - 02/22/2016 8:29 CDT Date : 10/23/2014 CDT 11/13/2014 CDT [...] is she is 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 Sanivation/no bleeding/consult with Quintin/Pharmacy and called Mom with orders Per Meredith Hernandez, no changes, has been drinking some Kiwi Juice, no bleeding/consult with Quintin/Pharmacy Called to david /Fabiola, no changes, rev'd w/BCarlson/Pharmacy Recommend Recheck : Three weeks One week One week One week Plan completed by : ELISEO Valle - 02/22/2016 8:29 CDT ELISEO QUEZADA - 02/22/2016 8:29 CDT ELISEO QUEZADA - 02/22/2016 8:29 CDT ELISEO QUEZADA - 02/22/2016 8:29 CDT Date : 12/04/2014 CDT 12/18/2014 CDT [...] week Two weeks Plan completed by : ELISEO De Dios - 02/22/2016 8:29 CDT ELISEO QUEZADA - 02/22/2016 8:29 CDT ELISEO QUEZADA - 02/22/2016 8:29 CDT ELISEO QUEZADA - 02/22/2016 8:29 CDT Date : 02/05/2015 CDT 02/26/2015 CDT [...] weeks Three weeks Plan completed by : ELISEO DURHAM - 02/22/2016 8:29 CDT ELISEO QUEZADA - 02/22/2016 8:29 CDT ELISEO QUEZADA - 02/22/2016 8:29 CDT ELISEO QUEZADA - 02/22/2016 8:29 CDT Date : 04/09/2015 CDT 05/07/2015 HELP DESK TEAM LEADER 06/04/2015 HELP DESK TEAM LEADER 07/02/2015 HELP DESK TEAM LEADER Location of INR sample : Lab Lab [...] Other: 5 weeks Plan completed by : ELISEO Reina - 02/22/2016 8:29 CDT ELISEO QUEZADA - 02/22/2016 8:29 CDT ELISEO QUEZADA - 02/22/2016 8:29 CDT ELISEO QUEZADA - 02/22/2016 8:29 CDT Date : 08/06/2015 HELP DESK TEAM LEADER 09/17/2015 CDT 10/29/2015 CDT 11/12/2015 CDT Location [...] weeks One week Plan completed by : ELISEO Feliciano - 02/22/2016 8:29 CDT ELISEO QUEZADA - 02/22/2016 8:29 CDT ELISEO QUEZADA - 02/22/2016 8:29 CDT ELISEO QUEZADA - 02/22/2016 8:29 CDT Date : 11/19/2015 CDT 12/03/2015 CDT [...] month One month Plan completed by : ELISEO Taylor - 02/22/2016 8:29 CDT ELISEO QUEZADA - 02/22/2016 8:29 CDT ELISEO QUEZADA - 02/22/2016 8:29 CDT ELISEO QUEZADA - 02/22/2016 8:29 CDT Date : 02/19/2016 CDT 02/20/2016 CDT [...] Tyshawn Brizuela, Pharm.DMichael Brizuela, Pharm.D. BAUDILIO, PharmD Rea LeonDELISEO ROSENBAUM 02/22/2016 8:29 CDT ELISEO QUEZADA - 02/22/2016 8:29 CDT ELISEO QUEZADA 02/22/2016 8:29 CDT ELISEO QUEZADA - 02/22/2016 8:29 CDT [facility] Document Id: [id number] CDT!568 Miscellaneous - Ana Jonas - 02/21/2016 11:47 PM CDT Adult Ongoing Assessment Adult Ongoing Assessment Entered On: 02/21/2016 23:52 CDT Performed On: 02/21/2016 23:47 CDT by ANA JONAS RN Respiratory Respiratory Patient Stated Symptoms : None Respirations : Unlabored Distress : None Respiratory Pattern : Regular All Lobes Breath Sounds : Clear Cough and Deep Breathe : Done Cough : None, Dry Sputum Amount : None Sputum Color : Clear Suction : None Airway : Patent ANA JONAS RN - 02/21/2016 23:47 CDT Cardiovascular CV Patient Stated Symptoms : None Heart Rhythm : Regular Heart Sounds ICU : S1S2 Antiembolism Device Yes/No : No Nail Bed Color : Meraux Capillary Refill : Less than 2 seconds Edema Assessment : Yes ANA JONAS RN - 02/21/2016 23:47 CDT Edema Details Edema Detailed Grid Ankle Edema Right : 2+ mild/4mm ANA JONAS RN - 02/21/2016 23:47 CDT Neurological Neuro Patient Stated Symptoms : Other: Downs Syndrome Orientation : Oriented x 3, Appropriate for age Level of Consciousness : Alert Gait : Unsteady Swallowing Difficulty/Aspiration Risk : None ANA JONAS RN - 02/22/2016 0:25 CDT Henley Coma Eye Opening Response Kathleen : Spontaneously Best Verbal Response Henley : Oriented Best Motor Response Henley : Obeys simple commands Henley Coma Score : 15 ANA JONAS RN - 02/22/2016 0:25 CDT Oral Assessment Lips : Smooth, pink, moist, intact Gingiva : Meraux, smooth, moist, intact Tongue : Smooth, pink, moist, intact Teeth : Minimal debris, mostly between teeth Saliva : Thin, watery, plentiful ANA JONAS RN - 02/22/2016 0:25 CDT Psycho/Emotional Affect/Behavior : Calm, Cooperative, Appropriate Pain Symptoms : Yes ANA JONAS RN - 02/22/2016 0:25 CDT Pain Scale Pain Scale Verbal 0-10 : Open ANA JONAS RN - 02/22/2016 0:25 CDT Pain Pain Assessment Grid Pain 1 Location : Foot Laterality : Right Intensity : 7 Time Pattern : Constant Pain Radiation : No Aggravating Factors : Movement Alleviating Factors : Medication, Repositioning, Rest Associated Symptoms : None Interventions : Medications, Repositioning ANA JONAS - 02/22/2016 0:25 CDT Gastrointestinal GI Patient Stated Symptoms : None ANA JONAS - 02/22/2016 0:25 CDT Nutrition Appetite : Excellent Eating Difficulties : None Feeding Ability : Complete independence ANA JONAS - 02/22/2016 0:25 CDT Genitourinary Patient Stated Symptoms : None ANA JONAS - 02/22/2016 0:25 CDT Integumentary Integumentary Patient Stated Symptoms : None Skin Turgor : Elastic Skin Integrity : Intact Mucous Membrane Color : Meraux Mucous Membrane Description : Moist ANA JONAS - 02/22/2016 0:25 CDT Skin Abnormality/Location Grid Location : Lower leg Other: all over body, arms, butt, legs Laterality : Right Abnormality : Excoriation, Flaking, Other: tight Other: psoriasis ANA JONAS - 02/22/2016 0:25 CDT ANA JONAS - 02/22/2016 0:25 CDT Skin Color : Other: Psoriasis Skin Description : Dry, Blotchy Skin Temperature : Warm ANA JONAS - 02/22/2016 0:25 CDT Incision/Wound Incision/Wound Care Grid Activity : Assessed Wound Type : Other: cellulitis Location : Lower leg Laterality : Right ANA JONAS - 02/22/2016 0:25 CDT Mando Sensory Perception Mando : No impairment Moisture Mando : Occasionally moist Activity Mando : Walks occasionally Mobility Mando : Slightly limited Nutrition Mando : Excellent Friction and Shear Mando : No apparent problem Mando Score : 20 ANA JONAS - 02/22/2016 0:25 CDT Musculoskeletal Musculoskeletal Patient Stated Symptoms : Weakness Activity Tolerance : Minimal distress ANA JONAS - 02/22/2016 0:25 CDT Musculoskeletal Joint Asmt Ultragrid Joint Assessment #1 Location : Ankle, right Assessment : Edema present, Heat present, Tender to palpation Range of Motion : Limited motion, active ANA JONAS - 02/22/2016 0:25 CDT Peripheral IV Peripheral IV Assess/Intervention Grid Peripheral IV #1 Peripheral IV #2 IV Activity : Assessment Removal : Catheter intact Date of Insertion : 02/21/2016 CDT Discontinued Date : 02/21/2016 CDT IV Site : Antecubital Wrist Laterality : Left Left Catheter Size : 20 Catheter Type : Over the needle Infiltration Score : 0 Phlebitis Score : 0 ANA JONAS RN - 02/22/2016 0:25 CDT ANA JONAS RN - 02/22/2016 0:25 CDT Hendrich II Fall Risk Confusion/Disorientation Hendrich [...] Fall Risk Score Hendrich II : 1 ANA JONAS RN - 02/22/2016 0:25 CDT Safe Patient Handling Safe Pt Handling Independent : No Safe Pt Handling Supervision/Minimal Assistance : Yes - Unmotorized Equipment Safe Pt Handling Equipment Rec : Unmotorized Equipment Repositioning Device Recommended : No ANA JONAS RN - 02/22/2016 0:25 CDT Source: [employer] Document Id: [id number] CDT!138 Miscellaneous - Eliane Benjamin, C.N.A. - 02/21/2016 4:00 PM CDT Adult Activities of Daily Living Adult Activities of Daily Living Entered On: 02/21/2016 16:29 CDT Performed On: 02/21/2016 16:00 CDT by ELIANE BENJAMIN CNA ADLs II Hygiene Assistance Grid Back Rub : Maximum assistance Foot Care : Maximum assistance Hair Care : Moderate assistance Leeanna Care : Maximum assistance Shower : Maximum assistance Upper Body Dressing(Clothing) : Moderate assistance Lower Body Dressing(Clothing) : Moderate assistance ELIANE BENJAMIN CNA - 02/21/2016 16:28 CDT Standard Safety : Bed alarm ON, Bed in low position, Call device within reach, Gait belt, Non-Slip footwear ELIANE BENJAMIN CNA - 02/21/2016 16:28 CDT Source: [employer] Document Id: [id number] CDT!11 Miscellaneous - Eliane Benjamin C.N.A. - 02/21/2016 2:18 PM CDT Adult Activities of Daily Living Adult Activities of Daily Living Entered On: 02/21/2016 14:19 CDT Performed On: 02/21/2016 14:18 CDT by ELIANE BENJAMIN CNA ADLs I Patient Position : Other: ambulation Activity Status ADL : Ambulating in preciado Activity Assistance : Moderate 1 person assistance Assistive Device : Gait belt, Walker Ambulation Distance : 60 m(Converted to: 196 ft 10 inch(es), 6,000 cm) Ambulation Patient Effort : Good ELIANE BENJAMIN CNA - 02/21/2016 14:18 CDT Source: [employer] Document Id: [id number] CDT!8 Miscelllucian - Arash Fajardo M.S., M.S.N., R.N. - 02/21/2016 11:29 AM CDT Swing Bed Admission Assessment Swing Bed Admission Assessment Entered On: 02/21/2016 11:52 CDT Performed On: 02/21/2016 11:29 CDT by ARASH FAJARDO RN Neurosensory Pain Symptoms : Yes Vision : No problem ARASH FAJARDO RN - 02/21/2016 11:29 CDT Pain Scale Pain Scale Verbal 0-10 : Open ARASH FAJARDO RN - 02/21/2016 11:29 CDT Pain Pain Assessment Grid Pain 1 Location : Foot Laterality : Right Intensity : 7 Interventions : Medications, Rest ARASH FAJARDO RN - 02/21/2016 11:29 CDT Genitourinary Patient Stated Symptoms : None ARASH FAJARDO RN - 02/21/2016 11:29 CDT Integumentary Skin Integrity : Not intact ARASH FAJARDO RN - 02/21/2016 11:29 CDT Skin Abnormality/Location Grid Location : Lower leg Other: all over body, arms, butt, legs Laterality : Right Abnormality : Excoriation, Flaking, Other: tight Other: psoriasis ARASH FAJARDO RN - 02/21/2016 11:29 CDT ARASH FAJARDO RN - 02/21/2016 11:29 CDT Musculoskeletal Musculoskeletal Patient Stated Symptoms : None Activity Tolerance : Without distress ARASH FAJARDO RN - 02/21/2016 11:29 CDT Oral Exam - Swing Bed Teeth and supporting structure for : No abnormality Oral Cavity Tissue for : No abnormality Gums for : No abnormality Partials or Dentures for : No abnormality Are there any swollen lymph nodes in neck : No Face and Lips Comment : NA ARASH FAJARDO RN - 02/21/2016 11:29 CDT Condition Statement Psycho-emotional : Behaviors indicate use of coping mechanisms, Family: Supportive and involved in care ARASH FAJARDO RN - 02/21/2016 11:29 CDT Level of Function Dressing Swing : Moderate 1 person assistance Bathing Swing : Moderate 1 person assistance Walking Swing : Supervision/Minimum 1 person assistance Grooming Swing : Supervision/Minimum 1 person assistance Bed Mobility Swing : Independent Toilet Use Swing : Stand-by assistance Transfers Swing : Stand-by assistance Eating Swing : Independent ARASH FAJARDO RN - 02/21/2016 12:24 CDT Source: [facility] Document Id: [id number] CDT!46 Miscellaneous - Arash Fajardo M.S., M.S.N., R.N. - 02/21/2016 11:26 AM CDT Adult Activities of Daily Living Adult Activities of Daily Living Entered On: 02/21/2016 11:27 CDT Performed On: 02/21/2016 11:26 CDT by ARASH FAJARDO RN ADLs I Patient Position : Semi-Iraheta's Activity Status ADL : Up with assistance Activity Assistance : Supervision/Minimum 1 person assistance Assistive Device : Walker ARASH FAJARDO RN - 02/21/2016 11:26 CDT ADLs II Standard Safety : Bed alarm ON, Bed in low position, Call device within reach, ID band check, Non-Slip footwear, Rounds every 1 hour ARASH FAJARDO RN - 02/21/2016 11:26 CDT ADLs Adult Nutrition Diet Type : No active diet orders available. Breakfast : 75 % ARASH FAJARDO RN - 02/21/2016 11:26 CDT Source: [employer] Document Id: [id number] CDT!11 Miscellaneous - Eliane Benjaimn, C.N.A. - 02/21/2016 9:56 AM CDT Adult Activities of Daily Living Adult Activities of Daily Living Entered On: 02/21/2016 9:57 CDT Performed On: 02/21/2016 9:56 CDT by ELIANE BENJAMIN CNA ADLs I Patient Position : Other: ambulation Activity Status ADL : Ambulating in preciado Activity Assistance : Moderate 1 person assistance Assistive Device : Gait belt, Walker Ambulation Distance : 30 m(Converted to: 98 ft 5 inch(es), 3,000 cm) Ambulation Patient Effort : Good ELIANE BENJAMIN CNA - 02/21/2016 9:56 CDT Source: [employer] Document Id: [id number] CDT!8 Miscellaneous - Romeo Aggarwal Pharm.D., R.Ph. - 02/21/2016 9:35 AM CDT Anticoagulation Patient Intake Anticoagulation Patient Intake Entered On: 02/21/2016 9:36 CDT Performed On: 02/21/2016 9:35 CDT by ROMEO AGGARWAL Pharm.D., R.Ph. Plan INR goal range : 2.0 - 3.0 Duration of Therapy : Lifelong Tablet Size : 5 mg ROMEO AGGARWAL Pharm.D., R.Ph. - 02/21/2016 9:35 CDT Anticoagulation Management Plan Grid Date : [...] weeks Two weeks Plan completed by : ROMEO Linares Pharm.D., R.Ph. - 02/21/2016 9:35 CDT ROMEO AGGARWAL Pharm.D., R.Ph. - 02/21/2016 9:35 CDT ROMEO AGGARWAL Pharm.D., R.Ph. - 02/21/2016 9:35 CDT ROMEO AGGARWAL Pharm.D., R.Ph. - 02/21/2016 9:35 CDT Date : 12/26/2013 CDT 01/30/2014 CDT 03/06/2014 CDT 03/10/2014 CDT Location of INR sample : Lab Lab Lab Lab Type of Sample : Venous Venous Venous Venous INR Result : 2.79 2.7 4.8 3.1 Warfarin Dose : 5mg mon/wed/mon and 2.5mg all other days 5mg Mon/Mon/Mon, 2.5mg all other days HOLD 03/06, 2.5mg [...] 03/10/2014 Other: 03/20/14 Plan completed by : ROMEO Arriola Pharm.D., R.Ph. - 02/21/2016 9:35 CDT ROMEO AGGARWAL Pharm.D., R.Ph. - 02/21/2016 9:35 CDT ROMEO AGGARWAL Pharm.D., R.Ph. - 02/21/2016 9:35 CDT ROMEO AGGARWAL Pharm.D., R.Ph. - 02/21/2016 9:35 CDT Date : 03/20/2014 CDT 03/27/2014 CDT [...] completed by : darya lackey LM /pharmacy ROMEO AGGARWAL Pharm.D., R.Ph. - 02/21/2016 9:35 CDT ROMEO AGGARWAL Pharm.Valentina., R.Ph. - 02/21/2016 9:35 CDT ROMEO AGGARWAL Pharm.D., R.Ph. - 02/21/2016 9:35 CDT ROMEO AGGARWAL Pharm.D., R.Ph. - 02/21/2016 9:35 CDT Date : 04/17/2014 CDT 04/24/2014 CDT 05/01/2014 HELP DESK TEAM LEADER 05/15/2014 HELP DESK TEAM LEADER Location of INR sample : Lab Lab [...] will trynoted dose called to mom Fabiola [phone] called to Fabiola/no changes Called to mother/Fabiola, not awareof any changes Recommend Recheck : One week One week Two weeks Two weeks Plan completed by : ROMEO RODRÍGUEZ Pharm.Rohit, R.Ph. - 02/21/2016 9:35 CDT ROMEO AGGARWAL Pharm.Valentina., R.Ph. - 02/21/2016 9:35 ROMEO LEA Pharm.Rohit, R.Ph. - 02/21/2016 9:35 CDT ROMEO AGGARWAL Pharm.Rohit, R.Ph. - 02/21/2016 9:35 CDT Date : 06/03/2014 HELP DESK TEAM LEADER 06/05/2014 HELP DESK TEAM LEADER 06/10/2014 HELP DESK TEAM LEADER 06/11/2014 HELP DESK TEAM LEADER Location of INR sample : Lab Type [...] Called motherFabiola. Dorita will be staying in [place] 2wks post-surgery & have INR drawn there. [...] lovenox tomorrow AM as ordered. INR in [place] for next several weeks as pt will be recovering there. Recommend Recheck : Other: depending on Dr. Henriquez's preop. Other: 06/18 Other: 06/13/14 Plan completed by : ROMEO KUMARI Pharm.D., R.Ph. - 02/21/2016 9:35 CDT ROMEO AGGARWAL Pharm.D., R.Ph. - 02/21/2016 9:35 CDT ROMEO AGGARWAL Pharm.Valentina., R.Ph. - 02/21/2016 9:35 CDT ROMEO AGGARWAL Pharm.D., R.Ph. - 02/21/2016 9:35 CDT Date : 06/14/2014 HELP DESK TEAM LEADER 06/14/2014 HELP DESK TEAM LEADER 06/16/2014 HELP DESK TEAM LEADER 06/23/2014 HELP DESK TEAM LEADER Location of INR sample : Clinic Lab Lab Type of Sample : Venous Venous INR Result : 1.3 on 06/13 2.4 faxed from lab 2.0 Warfarin Dose : (pt took 2.5mg 06/13) 5mg Sat and 5mg Sun (06/14 and 06/15) 5mg Mon and 2.5mg all other days 5mg Mon and 2.5mg all other days Total Weekly Warfarin Dose : 20 20 Comment : [place] lab called with INR result from 06/13, reported they left a message with Dr. Henriquez and hadn't heard back, spoke with mother, Fabiola, and gave doses, continue Lovenox and repeat INR 06/16, message left with INR clinic in [place] to contact CF Please contact [place] lab on 06/16 for result and may call Fabiola at [phone] with instructions call to Fabiola/will stop Lovenox injections and take noted dose/pt has an appt here in [place] 06/23 so will do lab appt here that day Called to Fabiola/ Dorita will be back at [facility] by next draw. will have done on . no changes to meds/diet. Recommend Recheck : Two days One week Two weeks Plan completed by : ROMEO Avila LM Pharm.D., R.Ph. - 02/21/2016 9:35 CDT ROMEO AGGARWAL Pharm.D., R.Ph. - 02/21/2016 9:35 CDT ROMEO AGGARWAL Pharm.D., R.Ph. - 02/21/2016 9:35 CDT ROMEO AGGARWAL Pharm.D., R.Ph. - 02/21/2016 9:35 CDT Date : 07/10/2014 HELP DESK TEAM LEADER 07/17/2014 HELP DESK TEAM LEADER 07/31/2014 HELP DESK TEAM LEADER 09/11/2014 CDT Location of INR sample : [...] weeks Two weeks Plan completed by : ROMEO Ramires Pharm.Rohit, R.Ph. - 02/21/2016 9:35 CDT ROMEO AGGARWAL Pharm.D., R.Ph. - 02/21/2016 9:35 CDT ROMEO AGGARWAL Pharm.Valentina., R.Ph. - 02/21/2016 9:35 CDT ROMEO AGGARWAL Pharm.Valentina., R.Ph. - 02/21/2016 9:35 CDT Date : 09/12/2014 CDT 09/25/2014 CDT [...] week Two weeks Plan completed by : ROMEO Jensen Pharm.D., R.Ph. - 02/21/2016 9:35 CDT ROMEO AGGARWAL Pharm.D., R.Ph. - 02/21/2016 9:35 PATRICIAT ROMEO AGGARWAL Pharm.D., R.Ph. - 02/21/2016 9:35 CDT ROMEO AGGARWAL Pharm.D., R.Ph. - 02/21/2016 9:35 CDT Date : 10/23/2014 CDT 11/13/2014 CDT [...] change is she is exercising alot for [employer]/no bleeding/consult with Quintin/Pharmacy and called Mom with orders Per Meredith Hernandez, no changes, has been drinking some Kiwi Juice, no bleeding/consult with Quintin/Pharmacy Called to david /Fabiola, no changes, rev'd w/BCarlson/Pharmacy Recommend Recheck : Three weeks One week One week One week Plan completed by : ROMEO Kaur Pharm.D., R.Ph. - 02/21/2016 9:35 CDT ROMEO AGGARWAL Pharm.D., R.Ph. - 02/21/2016 9:35 CDT ROMEO AGGARWAL Pharm.Valentina., R.Ph. - 02/21/2016 9:35 CDT ROMEO AGGARWAL Pharm.D., R.Ph. - 02/21/2016 9:35 CDT Date : 12/04/2014 CDT 12/18/2014 CDT [...] this past wk & took Midol per david/Fabiola, no Lovenox per Dr Henriquez, rev'd dose w/LZorn/Pharmacy Called to mom/Fabiola, no changes Recommend Recheck : Two weeks Three weeks One week Two weeks Plan completed by : ROMEO Barrientos Pharm.Rohit, R.Ph. - 02/21/2016 9:35 CDT ROMEO AGGARWAL Pharm.Rohit, R.Ph. - 02/21/2016 9:35 CDT ROMEO AGGARWAL Pharm.Rohit, R.Ph. - 02/21/2016 9:35 CDT ROMEO AGGARWAL Pharm.Rohit, R.Ph. - 02/21/2016 9:35 CDT Date : 02/05/2015 CDT 02/26/2015 CDT [...] weeks Three weeks Plan completed by : ROMEO JERNIGAN Pharm.DMichael, R.Ph. - 02/21/2016 9:35 CDT ROMEO AGGARWAL Pharm.Rohit, R.Ph. - 02/21/2016 9:35 CDT ROMEO AGGARWAL Pharm.DMichael, R.Ph. - 02/21/2016 9:35 CDT ROMEO AGGARWAL Pharm.Rohit, R.Ph. - 02/21/2016 9:35 CDT Date : 04/09/2015 CDT 05/07/2015 HELP DESK TEAM LEADER 06/04/2015 HELP DESK TEAM LEADER 07/02/2015 HELP DESK TEAM LEADER Location of INR sample : Lab Lab [...] Other: 5 weeks Plan completed by : ROMEO Burger Pharm.D., R.Ph. - 02/21/2016 9:35 CDT ROMEO AGGARWAL Pharm.Valentina., R.Ph. - 02/21/2016 9:35 CDT ROMEO AGGARWAL Pharm.D., R.Ph. - 02/21/2016 9:35 CDT ROMEO AGGARWAL Pharm.D., R.Ph. - 02/21/2016 9:35 CDT Date : 08/06/2015 HELP DESK TEAM LEADER 09/17/2015 CDT 10/29/2015 CDT 11/12/2015 CDT Location [...] weeks One week Plan completed by : JK ROMEO Gutierrez Pharm.D., R.Ph. - 02/21/2016 9:35 CDT ROMEO AGGARWAL Pharm.D., R.Ph. - 02/21/2016 9:35 CDT ROMEO AGGARWAL PharmJaime, R.Ph. - 02/21/2016 9:35 CDT ROMEO AGGARWAL Pharm.D., R.Ph. - 02/21/2016 9:35 CDT Date : 11/19/2015 CDT 12/03/2015 CDT [...] month One month Plan completed by : ROMEO Lin Pharm.Rohit, R.Ph. - 02/21/2016 9:35 CDT ROMEO AGGARWAL Pharm.DMichael, R.Ph. - 02/21/2016 9:35 CDT ROMEO AGGARWAL Pharm.Rohit, R.Ph. - 02/21/2016 9:35 CDT ROMEO AGGARWAL Pharm.DMichael, R.Ph. - 02/21/2016 9:35 CDT Date : 02/19/2016 CDT 02/20/2016 CDT 02/21/2016 CDT Location of INR sample : [facility] Type of Sample : Venous Venous Venous INR Result : 4,72 4.76 3.01 Warfarin Dose : No warfarin today No warfarin today 2.5 ng x1 Total Weekly Warfarin Dose : Comment : No warfarin today and recheck INR tomorrow. No warfarin today and recheck INR tomorrow. INR improving and expect to drop from 2 held doses. Pt on Zosyn. Recommend Recheck : One day One day One day Plan completed by : Tyshawn Brizuela, Pharm.DJustin Chavez, PharmROMEO WYNNE Pharm.D., R.Ph. - 02/21/2016 9:35 CDT ROMEO AGGARWAL Pharm.D., R.Ph. - 02/21/2016 9:35 CDT ROMEO AGGARWAL Pharm.D., R.Ph. - 02/21/2016 9:35 CDT Source: [facility] [employer]OWERCHART Document Id: [id number] CDT!559 Miscellaneous - Arash Fajardo M.S., M.S.NMichael, R.N. - 02/21/2016 9:30 AM CDT Adult Ongoing Assessment Adult Ongoing Assessment Entered On: 02/21/2016 10:31 CDT Performed On: 02/21/2016 9:30 CDT by ARASH FAJARDO RN Respiratory All Lobes Breath Sounds : Clear Cough : None Sputum Amount : None Suction : None Airway : Patent ARASH FAJARDO RN - 02/21/2016 11:17 CDT Respiratory Patient Stated Symptoms : None Respirations : Unlabored Distress : None Respiratory Pattern : Regular ARASH FAJARDO RN - 02/21/2016 10:30 CDT Cardiovascular CV Patient Stated Symptoms : None Heart Rhythm : Regular Heart Sounds ICU : S1S2, Murmur Antiembolism Device Yes/No : No Nail Bed Color : Meraux Capillary Refill : Less than 2 seconds Edema Assessment : Yes Pacer : No ARASH FAJARDO RN - 02/21/2016 11:17 CDT Radial Pulse, Left : 2+ Normal Radial Pulse, Right : 2+ Normal Dorsalis Pedis Pulse, Left : 2+ Normal Dorsalis Pedis Pulse, Right : 2+ Normal ARASH FAJARDO RN - 02/21/2016 11:17 CDT Skin Color : Normal for ethnicity Skin Description : Dry Skin Temperature : Warm Activity Tolerance : Without distress ARASH FAJARDO - 02/21/2016 11:17 CDT Edema Details Edema Detailed Grid Pretibial Edema Ankle Edema Pedal Edema Right : 2+ mild/4mm 2+ mild/4mm 2+ mild/4mm ARASH FAJARDO - 02/21/2016 11:17 CDT ARASH FAJARDO - 02/21/2016 11:17 CDT ARASH FAJARDO - 02/21/2016 11:17 CDT Neurological Neuro Patient Stated Symptoms : None Orientation : Oriented x 3 Level of Consciousness : Alert Gait : Steady, Asymmetrical ARASH FAJARDO - 02/21/2016 11:17 CDT Kathleen Coma Eye Opening Response Henley : Spontaneously Best Verbal Response Kathleen : Oriented Best Motor Response Kathleen : Obeys simple commands Kathleen Coma Score : 15 ARASH FAJARDO - 02/21/2016 11:17 CDT Psycho/Emotional Affect/Behavior : Calm, Cooperative, Appropriate Pain Symptoms : Yes MARKHIRALARASH POND - 02/21/2016 11:17 CDT Coping Grid Stable mood with appropriate affect : Yes ARASH FAJARDO - 02/21/2016 11:17 CDT Safety Grid Vision, Hearing, Mobility Adequate to Meet Safety Needs : Yes ARASH FAJARDO - 02/21/2016 11:17 CDT Pain Scale Pain Scale Verbal 0-10 : Open ARASH FAJARDO - 02/21/2016 11:17 CDT Pain Pain Assessment Grid Pain 1 Location : Foot Laterality : Right Intensity : 7 Interventions : Medications, Rest ARASH FAJARDO - 02/21/2016 11:17 CDT Gastrointestinal GI Patient Stated Symptoms : Diarrhea Abdomen Palpation : Non-Tender, Soft Bowel Sounds All Quadrants : Hyperactive Passing Flatus : Yes EAVARASH POND ANGELINE - 02/21/2016 11:17 CDT Nutrition Appetite : Good Eating Difficulties : None Feeding Ability : Complete independence ARASH FAJARDO - 02/21/2016 11:17 CDT Genitourinary Patient Stated Symptoms : None Urinary Elimination : Voiding, no difficulties MARKHIRALARASH POND Iris - 02/21/2016 11:17 CDT Integumentary Integumentary Patient Stated Symptoms : None Skin Turgor : Elastic Skin Integrity : Intact Mucous Membrane Color : Meraux Mucous Membrane Description : Moist ARASH FAJARDO RN - 02/21/2016 11:17 CDT Skin Abnormality/Location Grid Location : Lower leg Other: all over body, arms, butt, legs Laterality : Right Abnormality : Excoriation, Flaking, Other: tight Other: psoriasis ARASH FAJARDO RN - 02/21/2016 11:17 CDT ARASH FAJARDO RN - 02/21/2016 11:17 CDT Incision/Wound Incision/Wound Care Grid Activity : Assessed Wound Type : Other: cellulitis Location : Lower leg Laterality : Right Description : Dry, Tender Color : Red, Meraux Drainage : None Wound Dressing : Open to air Neurovascular Status : Neurovascular intact distal to injury ARASH FAJARDO RN - 02/21/2016 11:17 CDT Mando Sensory Perception Mando : No impairment Moisture Mando : Occasionally moist Activity Mando : Walks occasionally Mobility Mando : No limitations Nutrition Mando : Adequate Friction and Shear Mando : Potential problem Mando Score : 19 ARASH FAJARDO RN - 02/21/2016 11:17 CDT Peripheral IV Peripheral IV Assess/Intervention Grid Peripheral IV #1 IV Activity : Assessment IV Site : Antecubital Laterality : Left Infiltration Score : 0 Phlebitis Score : 0 ARASH FAJARDO RN - 02/21/2016 11:17 CDT Hendrich II Fall Risk Confusion/Disorientation Hendrich [...] Fall Risk Score Hendrich II : 1 ARASH FAJARDO RN - 02/21/2016 11:17 CDT Source: [employer] Document Id: [id number] CDT!127 Miscellaneous - Conversion, Historical Provider Ser - 03/28/2013 12:00 AM CDT Advance Directive Advance Directive Entered On: 03/23/2016 15:26 CDT Performed On: 03/28/2013 0:00 CDT by MARCELA DINH Advance Directive Advanced Directives : Yes Advance Directive Date : 03/28/2013 Advance Directive Type : Health care power of general education professor Activation of Health Care POA : No Advance Directive Location : Scanned into EMR MARCELA DINH - 03/23/2016 15:24 CDT Source: [facility] [employer] Document Id: [id number] documented in this encounter Plan of Treatment Not on filedocumented as of this encounter Procedures Procedure Name Priority Date/Time Associated Comments Diagnosis PROTHROMBIN TIME Routine 02/27/2016 6:28 AM Resul ts for this (PT), P CDT procedure are i n the results section. PROTHROMBIN TIME Routine 02/26/2016 6:51 AM Resul ts for this (PT), P CDT procedure are i n the results section. PROTHROMBIN TIME Routine 02/25/2016 12:30 Results for this (PT), P PM CDT procedure are i n the results section. VANCOMYCIN, TROUGH, S Routine 02/25/2016 12:30 Re sults for this PM CDT procedure are i n the results section. PROTHROMBIN TIME Routine 02/24/2016 7:03 AM Resul ts for this (PT), P CDT procedure are i n the results section. PROTHROMBIN TIME Routine 02/23/2016 6:45 AM Resul ts for this (PT), P CDT procedure are i n the results section. PROTHROMBIN TIME Routine 02/22/2016 6:49 AM Resul ts for this (PT), P CDT procedure are i n the results section. CBC WITHOUT Routine 02/22/2016 6:49 AM Results f or this DIFFERENTIAL, B CDT procedure ar e in the results section. C-REACTIVE PROTEIN Routine 02/22/2016 6:49 AM Res ults for this (CRP), S/P CDT procedure are i n the results section. BASIC METABOLIC Routine 02/22/2016 6:49 AM Result s for this PANEL, S/P CDT procedure are i n the results section. documented in this encounter Results (ABNORMAL) PT (Prothrombin Time) with INR (02/27/2016 6:28 AM CDT) [facility] gist Method Time Signature Prothrombin 22.8 (H) 8.7 - 11.8 POWERCHART Time, P SECONDS INR 2.07 (H) 0.90 - 1.16 POWERCHART Specimen (Source) Anatomical Collection Method Collection Time Re ceived Time Location / / Volume Laterality Blood 02/27/2016 6:28 AM CDT Martha Lopez M.D. LAB BLOOD ADD-ON Performing Organization Address City/State/ZIP Code Phon e Number POWERCHART (ABNORMAL) PT (Prothrombin Time) with INR (02/26/2016 6:51 AM CDT) [facility] Method Time Signature Prothrombin 22.3 (H) 8.7 - 11.8 POWERCHART Time, P SECONDS INR 2.02 (H) 0.90 - 1.16 POWERCHART Specimen (Source) Anatomical Collection Method Collection Time Re ceived Time Location / / Volume Laterality Blood 02/26/2016 6:51 AM CDT Martha Lopez M.D. LAB BLOOD ADD-ON Performing Organization Address City/State/ZIP Code Phon e Number POWERCHART (ABNORMAL) PT (Prothrombin Time) with INR (02/25/2016 12:30 PM CDT) [facility] Method Time Signature Prothrombin 23.8 (H) 8.7 - 11.8 POWERCHART Time, P SECONDS INR 2.14 (H) 0.90 - 1.16 POWERCHART Specimen (Source) Anatomical Collection Method Collection Time Re ceived Time Location / / Volume Laterality Blood 02/25/2016 12:30 PM CDT Martha Lopez M.D. LAB BLOOD ADD-ON Performing Organization Address City/State/ZIP Code Phon e Number POWERCHART Vancomycin Level, Trough (02/25/2016 12:30 PM CDT) P athologist Signature Vancomycin, 12.2 7.0 - 20.0 POWERCHART Trough, S MCGML Specimen (Source) Anatomical Collection Method Collection Time Re ceived Time Location / / Volume Laterality Blood 02/25/2016 12:30 PM CDT Martha Lopez M.D. LAB BLOOD NON ADD-ON Performing Organization Address City/State/ZIP Code Phon e Number POWERCHART (ABNORMAL) PT (Prothrombin Time) with INR (02/24/2016 7:03 AM CDT) [facility] gist Method Time Signature Prothrombin 33.1 (H) 8.7 - 11.8 POWERCHART Time, P SECONDS INR 2.85 (H) 0.90 - 1.16 POWERCHART Specimen (Source) Anatomical Collection Method Collection Time Re ceived Time Location / / Volume Laterality Blood 02/24/2016 7:03 AM CDT Martha Lopez M.D. LAB BLOOD ADD-ON Performing Organization Address City/[facility]/ZIP Code Phon e Number POWERCHART (ABNORMAL) PT (Prothrombin Time) with INR (02/23/2016 6:45 AM CDT) [facility] gist Method Time Signature Prothrombin 27.8 (H) 8.7 - 11.8 POWERCHART Time, P SECONDS INR 2.45 (H) 0.90 - 1.16 POWERCHART Specimen (Source) Anatomical Collection Method Collection Time Re ceived Time Location / / Volume Laterality Blood 02/23/2016 6:45 AM CDT Martha Lopez M.D. LAB BLOOD ADD-ON Performing Organization Address City/State/ZIP Code Phon e Number POWERCHART (ABNORMAL) PT (Prothrombin Time) with INR (02/22/2016 6:49 AM CDT) [facility] gist Method Time Signature Prothrombin 27.9 (H) 8.7 - 11.8 POWERCHART Time, P SECONDS INR 2.46 (H) 0.90 - 1.16 POWERCHART Specimen (Source) Anatomical Collection Method Collection Time Re ceived Time Location / / Volume Laterality Blood 02/22/2016 6:49 AM CDT Martha Lopez M.D. LAB BLOOD ADD-ON Performing Organization Address City/State/ZIP Code Phon e Number POWERCHART (ABNORMAL) CBC without Differential (02/22/2016 6:49 AM CDT) [facility] gist Method Time Signature Leukocytes 4.7 3.4 - 10.5 POWERCHART X109L Erythrocytes 3.42 (L) 3.90 - POWERCHART 5.03 [id number] Hemoglobin 11.2 (L) 12.0 - POWERCHART 15.5 GDL Hematocrit 34.2 (L) 34.9 - POWERCHART 44.5 MCV 100.0 (H) 81.6 - POWERCHART 98.3 FL HX RDW 13.4 11.9 - POWERCHART 15.5 Platelet Count 193 150 - 450 POWERCHART [id number] Specimen (Source) Anatomical Collection Method Collection Time Re ceived Time Location / / Volume Laterality Blood 02/22/2016 6:49 AM CDT Martha Lopez M.D. LAB BLOOD ADD-ON Performing Organization Address City/State/ZIP Code Phon e Number POWERCHART (ABNORMAL) CRP (C-Reactive Protein) (02/22/2016 6:49 AM CDT) athologist Signature C-Reactive 71.2 (H) <=5.0 MGL POWERCHART Protein (CRP), S Specimen (Source) Anatomical Collection Method Collection Time Re ceived Time Location / / Volume Laterality Blood 02/22/2016 6:49 AM CDT Martha Lopez M.D. LAB BLOOD ADD-ON Performing Organization Address City/State/ZIP Code Phon e Number POWERCHART (ABNORMAL) BMP (Basic Metabolic Panel) (02/22/2016 6:49 AM CDT) [facility] gist Method Time Signature Sodium, S 134.8 (L) 135.0 - POWERCHART 145.0 MML Potassium, S 4.4 3.6 - 4.8 POWERCHART MMOLL Chloride, S 98 98 - 107 POWERCHART MMOLL CO2 Total 27.9 23.0 - POWERCHART 29.0 MMOLL BUN (Blood Urea 12 7 - 18 POWERCHART Nitrogen), S MGDL Creatinine 1.11 0.60 - POWERCHART 1.30 MGDL Calcium, Total, 8.9 8.6 - 10.0 POWERCHART S MGDL Anion Gap 9 (L) 10 - 20 POWERCHART MMOLL HXeGFR (MDRD) 54 (L) >=60 POWERCHART [id number] eGFR >60 >=60 POWERCHART Black/ [id number] [place] Glucose 100 70 - 139 POWERCHART MGDL Specimen (Source) Anatomical Collection Method Collection Time Re ceived Time Location / / Volume Laterality Blood 02/22/2016 6:49 AM CDT Martha Lopez M.D. LAB BLOOD ADD-ON Performing Organization Address City/State/ZIP Code Phon e Number POWERCHART documented in this encounter Visit Diagnoses Not on filedocumented in this encounter
--- OUTSIDE RECORDS SUMMARY | 2022-04-25 16:01 | XMS_ITS | Encounter Summary ---
:1975 Author Organization [facility] Address [address] [place] [id number] Care Team Providers Name Role Phone Unavailable Primary Care Provider Unavailable Encounter Details Date Type Department Care Team Description 03/04/2016 Hospital Encounter [facility]X [facility] Marsha Henriquez M.D. [address] [place], [place] [address] (Wo rk) Social History Tobacco Use Types Packs/Day Years Used Date Smoking Tobacco: Never Assessed Sex Assigned at Date Recorded Not on file documented as of this encounter Last Filed Vital Signs Vital Sign Reading Time Taken Comments Blood Pressure 106/72 03/04/2016 1:39 PM CDT Pulse 76 03/04/2016 1:39 PM CDT Temperature - - Respiratory Rate - - Oxygen Saturation - - Inhaled Oxygen Concentration - - Weight 80.6 kg (177 lb 11.1 oz) 03/04/2016 1:39 PM CDT Height 148 cm (4' 10.27) 03/04/2016 1:39 PM CDT Body Mass Index 36.8 03/04/2016 1:39 PM CDT documented in this encounter Medications [...] encounter Progress Notes Tasha Henriquez M.D. - 03/04/2016 12:45 PM CDT [id number] Patient presents with her mother and sister for followup after hospitalization for right lower leg cellulitis. They attributed this to her venous stasis edema and being on her feet 4 hours at work which certainly is a contributing factor, but I noted sometime prior to this she had a right lower leg contusion. In any case, she is doing better. They are working hard to control the edema. She has been elevating her leg but not very high. They need a prescription for compression stockings. They have noticed redness resolved. No fever. She just took her last dose of Bactrim which worked well when other antibiotics apparently did not. There was no sign of DVT on ultrasound. Does have a history of psoriasis but I do not think that was a contributing factor. She has really had no pain. PAST MEDICAL/SURGICAL HISTORY Reviewed. FAMILY HISTORY Reviewed. SOCIAL HISTORY Reviewed. MEDICATIONS Reviewed. ALLERGIES Reviewed. SYSTEMS REVIEW GENERAL: Negative except for that stated above. EYES: Negative except for that stated above. ENT: Negative except for that stated above. NECK: Negative except for that stated above. RESPIRATORY: Negative except for that stated above. CARDIOVASCULAR: Negative except for that stated above. GASTROINTESTINAL: Negative except for that stated above. GENITOURINARY: Negative except for that stated above. LYMPHATIC: Negative except for that stated above. MUSCULOSKELETAL: Negative except for that stated above. SKIN: Negative except for that stated above. NEUROLOGIC: Negative except for that stated above. PHYSICAL EXAMINATION GENERAL: Patient alert and oriented, [...] appreciated. There are positive bowel sounds. EXTREMITIES: No clubbing, cyanosis or edema. NEUROLOGIC: Cranial nerves II through XII are grossly intact. Sensation and motor strength grossly intact throughout. Reflexes are 2+ and symmetric. MUSCULOSKELETAL: Lower extremities: She has 1+ pretibial edema bilaterally. No calf tenderness. Negative Homans'. She does have venous stasis dermatitis as well, mid jose, about 5 cm worth, with a little bit of hemosiderin orantes discoloration. No open wounds. Redness has completely resolved. Normal neuro vascular exam. IMPRESSION/REPORT/PLAN 1. Followup after hospitalization for right lower extremity cellulitis, I think, due to her right lower extremity contusion. 2. Venous stasis edema and dermatitis, probably contributing to above. PLAN: Cellulitis appears to have resolved. They will watch for any redness, warmth, fever, etc. At this point we need to control the edema, and we discussed elevation of the leg at length and Jobst stockings. I gave them a prescription for that. They declined Occupational Therapy at this point. She does stand 4 hours at work, so I think she should be off a couple of more weeks before returning to work, but it is okay to go walking and use her exercise bike. They are working hard with a weight trainer and anutritionist to try to lose some weight. Of note is the family appreciates it when I emphasize things to carry as she apparently does not always listen to family members. Follow up then if symptoms persist or get worse. Greater than 25 minutes spent in [id number] consultation regarding above diagnoses and treatment. Tasha Henriquez M.D./erin Electronically Signed By: TASHA HENRIQUEZ MD On: 03/07/2016 07:50 AM Source: [facility] MHSDOLBEYNONRADSYS Document Id: [id number] documented in this encounter Miscellaneous Notes Miscellaneous - Meli Campo R.N. - 03/11/2016 3:06 PM CDT Anticoagulation Patient Intake Anticoagulation Patient Intake Entered On: 03/11/2016 15:08 CDT Performed On: 03/11/2016 15:06 CDT by MELI CAMPO RN Plan INR goal range : 2.0 - 3.0 Duration of Therapy : Lifelong Tablet Size : 2 mg, 5 mg MELI CAMPO RN - 03/11/2016 15:06 CDT Anticoagulation Management Plan Grid Date : [...] darya BURGESS JM MELI Carroll RN - 03/11/2016 15:06 CDT MELI CAMPO RN - 03/11/2016 15:06 CDT MELI CAMPON - 03/11/2016 15:06 CDT MELI CAMPO RN - 03/11/2016 15:06 CDT Date : 12/26/2013 CDT 01/30/2014 CDT [...] completed by : MELI Pradhan RN - 03/11/2016 15:06 CDT MELI CAMPO RN - 03/11/2016 15:06 CDT MELI CAMPO - 03/11/2016 15:06 CDT MELI CAMPO RN - 03/11/2016 15:06 CDT Date : 03/20/2014 CDT 03/27/2014 CDT [...] Plan completed by : darya lackey [facility]/pharmacy MELI CAMPO RN - 03/11/2016 15:06 CDT MELI CAMPO RN - 03/11/2016 15:06 CDT MELI CAMPO - 03/11/2016 15:06 CDT MELI CAMPO RN - 03/11/2016 15:06 CDT Date : 04/17/2014 CDT 04/24/2014 CDT 05/01/2014 COMPUTATIONAL SCIENCES PROFESSOR 05/15/2014 COMPUTATIONAL SCIENCES PROFESSOR Location of INR sample : Lab Lab [...] will trynoted dose called to mom Fabiola [phone] called to Fabiola/no changes Called to mother/Fabiola, not awareof any changes Recommend Recheck : One week One week Two weeks Two weeks Plan completed by : MELI LEON RN - 03/11/2016 15:06 MELI ESQUIVEL RN - 03/11/2016 15:06 MELI ESQUIVEL - 03/11/2016 15:06 CDT MELI CAMPO RN - 03/11/2016 15:06 CDT Date : 06/03/2014 COMPUTATIONAL SCIENCES PROFESSOR 06/05/2014 COMPUTATIONAL SCIENCES PROFESSOR 06/10/2014 COMPUTATIONAL SCIENCES PROFESSOR 06/11/2014 COMPUTATIONAL SCIENCES PROFESSOR Location of INR sample : Lab Type [...] Fabiola granados. Dorita will be staying in [place] 2wks post-surgery & have INR drawn there. [...] lovenox tomorrow AM as ordered. INR in [place] for next several weeks as pt will be recovering there. Recommend Recheck : Other: depending on Dr. Henriquez's preop. Other: 06/18 Other: 06/13/14 Plan completed by : MELI ROSADO RN - 03/11/2016 15:06 CDT MELI CAMPO RN - 03/11/2016 15:06 CDT MELI CAMPON - 03/11/2016 15:06 CDT MELI CAMPO RN - 03/11/2016 15:06 CDT Date : 06/14/2014 COMPUTATIONAL SCIENCES PROFESSOR 06/14/2014 COMPUTATIONAL SCIENCES PROFESSOR 06/16/2014 COMPUTATIONAL SCIENCES PROFESSOR 06/23/2014 COMPUTATIONAL SCIENCES PROFESSOR Location of INR sample : Clinic Lab Lab Type of Sample : Venous Venous INR Result : 1.3 on 06/13 2.4 faxed from lab 2.0 Warfarin Dose : (pt took 2.5mg 06/13) 5mg Sat and 5mg Sun (06/14 and 06/15) 5mg Mon and 2.5mg all other days 5mg Mon and 2.5mg all other days Total Weekly Warfarin Dose : 20 20 Comment : [place] lab called with INR result from 06/13, reported they left a message with Dr. Henriquez and hadn't heard back, spoke with mother, Fabiola, and gave doses, continue Lovenox and repeat INR 06/16, message left with INR clinic in to contact [facility] Please contact [place] lab on 06/16 for result and may call Fabiola at [phone] with instructions call to Fabiola/will stop Lovenox injections and take noted dose/pt has an appt here in [place] 06/23 so will do lab appt here that day Called to Fabiola/ Dorita will be back at [facility] by next draw. will have done on . no changes to meds/diet. Recommend Recheck : Two days One week Two weeks Plan completed by : MELI Vazquez LM RN - 03/11/2016 15:06 CDT MELI CAMPO RN - 03/11/2016 15:06 CDT MELI CAMPO - 03/11/2016 15:06 CDT MELI CAMPO RN - 03/11/2016 15:06 CDT Date : 07/10/2014 COMPUTATIONAL SCIENCES PROFESSOR 07/17/2014 COMPUTATIONAL SCIENCES PROFESSOR 07/31/2014 COMPUTATIONAL SCIENCES PROFESSOR 09/11/2014 CDT Location of INR sample : [...] to Mom/Fabiola/No changes LMTC with changes for Faboila/mom. Left orders on home machine. Letter sent via POS. 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/no bleeding/consult with Quintin/Pharmacy and called Mom with orders Per Albina Hernandeznne, no changes, has been drinking some Kiwi Juice, no bleeding/consult with Quintin/Pharmacy Called to mom /Fabiola, no changes, rev'd w/Antoniorbria/Pharmacy Recommend Recheck : Three weeks One week One week One week Plan completed by : MELI Bailey RN - 03/11/2016 15:06 CDT MELI CAMPO RN - 03/11/2016 15:06 CDT MELI CAMPO - 03/11/2016 15:06 CDT MELI CAMPO RN - 03/11/2016 15:06 CDT Date : 12/04/2014 CDT 12/18/2014 CDT [...] completed by : MELI Shirley RN - 03/11/2016 15:06 CDT MELI CAMPO RN - 03/11/2016 15:06 CDT MELI CAMPO - 03/11/2016 15:06 CDT MELI CAMPO RN - 03/11/2016 15:06 CDT Date : 02/05/2015 CDT 02/26/2015 CDT [...] completed by : MELI CAMPOS RN - 03/11/2016 15:06 CDT MELI CAMPO RN - 03/11/2016 15:06 CDT MELI CAMPO - 03/11/2016 15:06 CDT MELI CAMPO RN - 03/11/2016 15:06 CDT Date : 04/09/2015 CDT 05/07/2015 COMPUTATIONAL SCIENCES PROFESSOR 06/04/2015 COMPUTATIONAL SCIENCES PROFESSOR 07/02/2015 COMPUTATIONAL SCIENCES PROFESSOR Location of INR sample : Lab Lab [...] completed by : MELI Keating RN - 03/11/2016 15:06 MELI ESQUIVEL RN - 03/11/2016 15:06 MELI ESQUIVEL - 03/11/2016 15:06 CDMELI CHERRY RN - 03/11/2016 15:06 CDT Date : 08/06/2015 COMPUTATIONAL SCIENCES PROFESSOR 09/17/2015 CDT 10/29/2015 CDT 11/12/2015 CDT Location [...] completed by : MELI Edwards RN - 03/11/2016 15:06 CDT MELI CAMPO RN - 03/11/2016 15:06 CDT MELI CAMPO - 03/11/2016 15:06 CDT MELI CAMPO RN - 03/11/2016 15:06 CDT Date : 11/19/2015 CDT 12/03/2015 CDT [...] completed by : MELI Pickett RN - 03/11/2016 15:06 CDT MELI CAMPO RN - 03/11/2016 15:06 CDT MELI CAMPO - 03/11/2016 15:06 CDT MELI CAMPO RN - 03/11/2016 15:06 CDT Date : 02/19/2016 CDT 02/20/2016 CDT 02/21/2016 CDT 02/22/2016 CDT Location of INR sample : [facility] Type of Sample : [...] Tyshawn Brizuela, PharmMichaelD. BAUDILIO, PharmD Eliseo Quezada, PharmValentina. MELI CAMPO RN - 03/11/2016 15:06 CDT MELI CAMPO RN - 03/11/2016 15:06 T MELI CAMPO N - 03/11/2016 15:06 T MELI CAMPO RN - 03/11/2016 15:06 CDT Date : 02/23/2016 CDT 02/24/2016 CDT [...] by : Eliseo Quezada, Alida. Eliseo Quezada, PharmValentina. Tyshawn Brizuela, Pharm.D. Eliseo Quezada, PharmD. MELI CAMPO RN - 03/11/2016 15:06 T MELI CAMPO RN - 03/11/2016 15:06 T MELI CAMPO Clemente - 03/11/2016 15:06 CDT MELI CAMPO RN - 03/11/2016 15:06 CDT Date : 02/27/2016 CDT 03/01/2016 CDT 03/04/2016 CDT 03/07/2016 CDT Location of INR sample : [facility] Type of Sample : Venous Capillary/POC Venous Capillary/POC INR Result : 2.07 2.5 2.2 2.4 Warfarin Dose : 2 mg daily 2mg daily 2.5mg 03/04-03/06 2.5mg Mon,Sat,Sun Total Weekly Warfarin Dose : 14 15.5 Comment : Pt being discharged on Bactrim. Will bead picker rx for 2 mg tabs On bactrim 2 days left, has f/u in [place] on Monday. Pt mother states plan to return to [facility] on 03/06. next f/u will be in [...] : MELI Bone RN, RN, RN - 03/11/2016 15:06 CDT MELI CAMPO RN - 03/11/2016 15:06 CDT MELI CAMPO - 03/11/2016 15:06 CDT MELI CAMPO RN - 03/11/2016 15:06 CDT Date : 03/11/2016 CDT Location of INR sample : Lab Type of Sample : Venous INR Result : 2.2 Warfarin Dose : 2.5mg daily Total Weekly Warfarin Dose : Comment : INR drawn in [place] faxed to us,called to mom/Fabiola,no changes [place] she [place] have INR drawn in [place] again Recommend Recheck : Other: 03/16/16 Plan completed by : MELI WINTER RN - 03/11/2016 15:06 CDT Anticoagulation Assessment / History Visit : Phone management Plan of Care Date : 01/29/2008 CDT Primary Physician Anticoagulation : TASHA HENRIQUEZ MD 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 - 03/08/2016 11:09 AM CDT Compression Stockings Document Contains Addenda Addendum by CASSIDY ADHIKARI RN on March 09, 2016 08:19:02 CDT Faxed to [facility] in [place]. Addendum by TASHA HENRIQUEZ MD on March 09, 2016 08:03:58 CDT From: TASHA HENRIQUEZ MD Sent: 03/09/2016 08:03:58 CDT Subject: RE:FW: Compression Stockings Approved Order:Rx Compression Garments Supply Message Once Jobst stockings. one pair. knee high; bilateral. medium compression (20-30mmHg) DX: R60.0 ELDER: lifetime with device to help get them on please Qty: 1 each Refills: 2 Substitutions Allowed Print - [id number] fax to [facility] Signed by TASHA HENRIQUEZ MD 03/09/2016 08:03:57 Addendum by SIOMARA GALICIA RN on March 08, 2016 13:45:25 CDT From: SIOMARA GALICIA RN (AYDE Penny/Phoenix/Nandini Team Nurse (RN)) To: TASHA HENRIQUEZ MD; Sent: 03/08/2016 13:45:25 CDT Subject: FW: Compression Stockings Addendum by SIOMARA GALICIA RN on March 08, 2016 13:45:19 CDT On hold pending signature Order:Rx Compression Garments Supply Message Once Jobst stockings. one pair. knee high; bilateral. medium compression (20-30mmHg) DX: R60.0 ELDER: lifetime with device to help get them on please Qty: 1 each Refills: 2 Substitutions Allowed Print - [id number] fax to [facility] Addendum by TASHA HENRIQUEZ MD on March 08, 2016 13:18:00 CDT From: TASHA HENRIQUEZ MD To: AYDE Penny/Phoenix/Nandini Team Nurse (RN); Sent: 03/08/2016 13:18:00 CDT Subject: RE: Compression Stockings i thought medium compression always worked in past, but if they need specific number then please pend up with 20-30 range. thanks From: SIOMARA GALICIA RN ( Hemalatha/Phoenix/Nandini Team Nurse (RN)) To: TASHA HENRIQUEZ MD; Sent: 03/08/2016 11:09:55 CDT Subject: Compression Stockings Fabiola called on behalf of the patient stating that they are are [facility] in [place] and they are trying to bead picker the compression stockings that were ordered on Monday03/04/2016, however theydo not include the range. Fabiola would like a new rx to be sent to [facility] so that they can bead picker the stockings. Unable to pend - RN does not know the appropriate range of mmHg Callback number: [phone] Source: [employer] Document Id: [id number] Electronically signed by Conversion, [facility] Environmental Issues Instructor [id number] at 11/20/2016 5:43 AM CDT Miscelllucian - Meli Campo RViktor - 03/04/2016 4:33 PM CDT Anticoagulation From: MELI CAMPO RN ( Anticoagulation Nurse) To: VIRGINIA SOTO RN; Sent: 03/04/2016 16:33:32 CDT Subject: Anticoagulation Patient's mother would like INR drawn in but have INR Clinic monitor patient again. Patient should have INR drawn again on 03/07/16 we will look for results in [facility] on Monday. Thank you Source: [facility] Document Id: [id number] Electronically signed by Conversion, [facility] Environmental Issues Instructor [id number] at 11/20/2016 5:43 AM CDT Miscellaneous - Tasha Henriquez M.D. - 03/04/2016 2:14 PM CDT Ambulatory Patient Summary [facility] [address], [address] [place], [place] [id number] Visit Information Name: [facility] Number: [id number] Current Date: 03/04/2016 14:14:11 Physicians Attending Provider: TASHA HENRIQUEZ MD Primary [...] 6 hours as needed for Pain/ Fever bifidobacterium-lactobacillus (Probiotic Formula) 1 cap, Oral, once a day chlorhexidine topical (chlorhexidine 0.12% mucous membrane liquid) 15 Milliliter, Oral, once a day (at bedtime) fluoride topical (Prevident 5000 Plus topical paste) 1 luther, Topical, two times a day multivitamin (multivitamin) 1 tab, Oral, once a day sulfamethoxazole-trimethoprim (sulfamethoxazole-trimethoprim 800 mg-160 mg oral tablet) 1 Tablet(s),Oral, two times a day x 14 day(s) warfarin (Coumadin 2 mg oral tablet) 1 Tablet(s), Oral, once a day Stop Taking the Following Medications: Medication list as of 03-04-16 14:14 Attention: If you have any medications at [...] Electronically Signed By: TASHA HENRIQUEZ MD Signed On:04-MAR-2016 14:14:07 Your Allergies & Intolerances Substance Reaction Symptoms [...] Your Upcoming Appointments Date Time Location Provider No Appointments found Attention: Contact your local Clinic if further [...] if you dont have one. Go to [email or web address] and click on Create Your Account. Then, follow the directions to complete the online form. Youll be asked for your [facility] number which you can find at the top of this document. Your Goals/Additional instructions: Source: [facility] POWERCHART Document Id: [id number] Miscellaneous - Tasha Henriquez M.D. - 03/04/2016 2:14 PM CDT Ambulatory Discharge Medication List [facility] [address], [address] [place] [phone] Visit Information Name: [facility] Number: [id number] Visit Date: 03/04/2016 14:14:10 Attending Provider: TASHA HENRIQUEZ MD Primary Care [...] 6 hours as needed for Pain/ Fever bifidobacterium-lactobacillus (Probiotic Formula) 1 cap, Oral, once a day chlorhexidine topical (chlorhexidine 0.12% mucous membrane liquid) 15 Milliliter, Oral, once a day (at bedtime) fluoride topical (Prevident 5000 Plus topical paste) 1 luther, Topical, two times a day multivitamin (multivitamin) 1 tab, Oral, once a day sulfamethoxazole-trimethoprim (sulfamethoxazole-trimethoprim 800 mg-160 mg oral tablet) 1 Tablet(s),Oral, two times a day x 14 day(s) warfarin (Coumadin 2 mg oral tablet) 1 Tablet(s), Oral, once a day Stop Taking the Following Medications: Medication list as of 03-04-16 14:14 Attention: If you have any medications at [...] Electronically Signed By: TASHA HENRIQUEZ MD Signed On:04-MAR-2016 14:14:07 Additional Information: Source: [facility] POWERCHART Document Id: [id number] Miscellaneous - Dano Lopez C.M.A. - 03/04/2016 1:39 PM CDT Adult Sorter Operator Intake/History Adult Sorter Operator Intake/History Entered On: 03/04/2016 13:42 CDT Performed On: 03/04/2016 13:39 CDT by DANO LOPEZ [facility] Intake Chief Complaint : Hospital follow up: right lower leg cellulitis LMP Date : 03/02/2016 Ambulatory Intake Additional Information : pt and caregivers declined mammo and pap as they will reschedule with [facility]. Temperature Core : 36.4 DegC(Converted to: 97.5 DegF) (LOW) Limb Alert Question : No Peripheral Pulse Rate : 76 /min Heart Rhythm : Regular Systolic Blood Pressure : 106 mmHg Diastolic Blood Pressure : 72 mmHg NIBP Mean : 83 mmHg BP Location : Right upper extremity Blood Pressure Cuff Size : Regular Height : 148 cm(Converted to: 4 ft 10 inch(es), 58 inch(es)) Actual Weight : 80.6 kg(Converted to: 177 lb 11 oz) Weight Source : Standing scale Dosing Weight Clinic : 80.6 kg Clinic BSA : 1.82 Body Mass Index : 36.8 kg/m2 DANO LOPEZ [facility] - 03/04/2016 13:39 CDT General Info Information Given By : Patient Languages : Israeli Is Patient Female and 13-50 no hysterectomy : Yes Status : Patient denies Are you ? : No DANO LOPEZ [facility] - 03/04/2016 13:39 CDT Subjective Pain Symptoms : Yes DANO LOPEZ [facility] - 03/04/2016 13:39 CDT Pain Scale Pain Scale Verbal 0-10 : Open DANO LOPEZ [facility] - 03/04/2016 13:39 CDT Pain Pain Assessment Grid Pain 1 Location : Lower leg Laterality : Right DANO LOPEZ [facility] - 03/04/2016 13:39 CDT Dependent Habits Exposure to Tobacco Smoke : Other: never smoker Smoking Status : Never smoker Tobacco 2A : No Tobacco Use/Currently Using : No Tobacco Use/Last 30 Days : No Tobacco Use/Last 12 months : No DANO LOPEZ [facility] - 03/04/2016 13:39 CDT Caffeine Use Grid Caffeine Use : Current Type : Soft drinks Frequency : Occasionally Amount : pop DANO LOPEZ [facility] - 03/04/2016 13:39 CDT Recreational Drug Use Grid Drug Use : None DANO LOPEZ [facility] - 03/04/2016 13:39 CDT Source: [employer] Document Id: [id number] CDT!51 documented in this encounter Plan of Treatment Not on filedocumented as of this encounter Visit Diagnoses Not on filedocumented in this encounter
--- OUTSIDE RECORDS SUMMARY | 2022-04-25 16:01 | XMS_ITS | Encounter Summary ---
:1975 Author Organization [facility] Address [address] [place] [address] Care Team Providers Name Role Phone Unavailable Primary Care Provider Unavailable Encounter Details Date Type Department Care Team Description 02/13/2016 Hospital Encounter HX NO MAPPING Vielka Zamudio P.A.-C., M.S. [address] [place], [place] [phone] (Wo rk) Social History Tobacco Use Types Packs/Day Years Used Date Smoking Tobacco: Never Assessed Sex Assigned at Date Recorded Not on file documented as of this encounter Last Filed Vital Signs Vital Sign Reading Time Taken Comments Blood Pressure 107/68 02/13/2016 10:36 AM CDT Pulse 73 02/13/2016 10:36 AM CDT Temperature - - Respiratory Rate 12 02/13/2016 10:36 AM CDT Oxygen Saturation - - Inhaled Oxygen Concentration - - Weight 84 kg (185 lb 3 oz) 02/13/2016 10:36 AM CDT Height 148 cm (4' 10.27) 02/13/2016 10:36 AM CDT Body Mass Index 38.35 02/13/2016 10:36 AM CDT documented in this encounter Discharge Summaries Vielka Zamudio P.A.-C. - 02/13/2016 11:29 AM CDT ED Discharge Instructions [facility] [address] [place] [address]. [place] [address] Name: DORITA SHEFFIELD Date of : 1975 12:00 AM Visit Date: 02/13/2016 10:22 AM [facility] Number: [id number] Address: [address] [facility] [phone] Primary Care Provider: TASHA HENRIQUEZ MD IMPORTANT: [facility] in [place] would like to thank you for allowing us to assist you with your healthcare needs. The following includes patient education materials and information regarding your injury/illness. Diagnosis: Contusion Leg Initial R Follow-Up Instructions: Your Upcoming Appointments: Date Time Location Provider 02/25/2016 08:15 [facility] PACKAGING ASSOCIATE Lizzy Beckett MD Patient Education Materials: Consider Using Patient Online [...] if you dont have one. Go to [email or web address] and click on Create Your Account. Then, follow the directions to complete the online form. Youll be asked for your [facility] number which you can find at the top of this document. ED Tests and Procedures: Order Status CBC (includes Auto Differential) Completed PT/INR Completed DDimer Completed Automated Diff-5 Part Completed Discharge Prescriptions & Home Medications: Medication/Strength Dose Route Frequency Indications/Special Instructions/Comments/Notes warfarin (warfarin 5 mg oral tablet) See Instructions 5mg Mon, 2.5mg all other days or as directed by the INR Clinic as of 12/30/2015 [facility] Prescription (NEW MED) See Instructions Rx mouth [...] arrange a ride home with a responsible democrat. NETTIE Cha CAROLYN MARY , or responsible democrat have received this information and my questions [...] arrange a ride home with a responsible democrat. I, DORITA SHEFFIELD , or responsible democrat have received this information and my questions have been answered. I have discussed any challenges I see with this plan with the nurse or physician. Patient Signature or Responsible Constitution Party/Relationship Date Time Provider Signature Date Time Source: Puzl Document Id: [id number] Vielka Zamudio P.A.-C. - 02/13/2016 11:29 AM CDT ED Depart Summary [facility] Emergency Department Clinical Discharge Summary PERSON INFORMATION Name DORITA SHEFFIELD Age 41 Years 1975 12:00 AM Sex Female Language Malagasy PCP TASHA HENRIQUEZ MD Marital Status Single Visit Id Visit Reason UC - Leg Pain or Swelling; Right leg pain Specialty [facility] Outpatient Med Service Urgent Care Referred by Track Group [facility] ED Discharge 02/13/2016 11:28 AM Tracking Id [id number] Checkout 02/13/2016 11:28 AM Checkin 02/13/2016 10:22 AM Acuity 4 -Less Urgent Dispo Type * Discharged to Home or Self Care Arrival 02/13/2016 10:22 AM Reg Status Complete LOS 000 01:06 Address: [address] [place] [phone] Comment: PROVIDER INFORMATION Provider Role Provider Contact Time WALI BENNETT LPN ED Nurse 02/13/16 10:35 VIELKA ZAMUDIO PA-C ED Provider 02/13/16 10:48 DIAGNOSIS Contusion Leg Initial R Comment: PATIENT EDUCATION INFORMATION Instructions: Follow up: Source: Puzl Document Id: [id number] documented in this encounter Medications at Time of Discharge Medication Sig Dispensed Refills Start Date End Date multivitamin tablet Take 2 tablets by 0 3 mouth daily. FLUORIDE, SODIUM, Apply 1 application 0 3 12/31/2019 DENTAL topically 2 (two) times a day. documented as of this encounter Progress Notes Vielka Zamudio P.A.-C. - 02/13/2016 10:22 AM CDT [id number] CHIEF COMPLAINT/REASON FOR VISIT Right lower leg pain. HISTORY OF PRESENT ILLNESS Dorita is a pleasant 41-year-old woman with underlying Down's syndrome who is on anticoagulation due to previous history of deep venous thrombosis and mitral valve regurgitation who had onset of lowerright leg pain this morning. There has been no recent major surgery. There has been no injury, recent travel or fever. The patient has not taken anything for the pain. PHYSICAL EXAMINATION GENERAL: This is an alert and nontoxic-appearing 41-year-old female with physical features that are consistent with Down's syndrome. INTEGUMENTARY: The patient has reproducible tenderness of the right distal tibia. It is somewhat warm to the touch. There is absolutely no ecchymosis or erythema. She does have hemosiderin staining of the bilateral lower extremities. She is otherwise neurovascularly intact. DIAGNOSTICS Her INR is therapeutic at 2.0. Her D-dimer is normal. CBC normal. IMPRESSION/REPORT/PLAN Right distal tibial contusion. Reassurance was given. While the patient is therapeutic on warfarin, I would be floored of a breakthrough deep vein thrombosis. Vielka Zamudio P.A.-C./erin Electronically Signed By: VIELKA ZAMUDIO PA-C On: 02/15/2016 09:24 AM Modified by and Electronically Signed by: VIELKA ZAMUDIO PA-C On: 02/15/2016 09:24 AM Source: [facility] MHSDOLBEYNONRADSYS Document Id: [id number] documented in this encounter H&P Notes Wali Bennett L.P.N. - 02/13/2016 10:36 AM CDT Urgent Care Intake Document Has Been Updated Urgent Care Intake Entered On: 02/13/2016 10:41 CDT Performed On: 02/13/2016 10:36 CDT by WALI BENNETT LPN Intake Chief Complaint : Hx blood clot 8 yrs ago, on coumadin, pt going with mom for a visit, states right ankle area bothering her - no injury, no warmth, no redness WALI BENNETT LPN - 02/13/2016 10:43 CDT Temperature Core : 36.8 DegC(Converted to: 98.2 DegF) Peripheral Pulse Rate : 73 /min Respiratory Rate : 12 /min (LOW) Systolic Blood Pressure : 107 mmHg Diastolic Blood Pressure : 68 mmHg NIBP Mean : 81 mmHg BP Location : Right upper extremity Blood Pressure Cuff Size : Regular SpO2 : 96 % Oxygen Therapy : Room air Height : 148 cm(Converted to: 4 ft 10 inch(es), 58 inch(es)) Actual Weight : 84.0 kg(Converted to: 185 lb 3 oz) Weight Source : Standing scale Dosing Weight Clinic : 84 kg Clinic BSA : 1.86 Body Mass Index : 38.35 kg/m2 WALI BENNETT LPN - 02/13/2016 10:36 CDT General Info Information Given By : Patient Languages : Malagasy Is Patient Female and 13-50 no hysterectomy : Yes Status : Patient denies Are you ? : No WALI BENNETT LPN - 02/13/2016 10:36 CDT Subjective Pain Symptoms : Yes WALI BENNETT LPN - 02/13/2016 10:36 CDT Dependent Habits Exposure to Tobacco Smoke : Other: never smoker Smoking Status : Never smoker Tobacco 2A : No Tobacco Use/Currently Using : No Tobacco Use/Last 30 Days : No Tobacco Use/Last 12 months : No WALI BENNETT LPN - 02/13/2016 10:36 CDT Caffeine Use Grid Caffeine Use : Current Type : Soft drinks Frequency : Occasionally Amount : pop WALI BENNETT LPN - 02/13/2016 10:36 CDT Nutrition Nutrition Risk Factors by History Adult : None WALI BENNETT SHELIA - 02/13/2016 10:36 CDT Functional Living Situation : senior care Current Daily Living Assistance : ADL's, Transportation WALI BENNETT SHELIA - 02/13/2016 10:36 CDT Psychosocial Domestic Abuse Concerns : None Behavioral Health Screen/Safety Assmt : No Buddhism Preference : No qualifying data available. NEMO BENNETTJEWEL BASS - 02/13/2016 10:36 CDT Advance Directive Advanced Directives : No Advance Directive Additional Information : No DONALD WALI BASS - 02/13/2016 10:36 CDT Educ Needs Learning Style Preference Adult Grid Patient : None Family : None BENNETT WALI BASS - 02/13/2016 10:36 CDT Source: [facility] [employer] Document Id: [id number] CDT!3 documented in this encounter ED Notes Varun Hilton R.N. 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 ; 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: Active ; Responsible Provider: BELLA NULL MD; Vocabulary: ICD-9-CM Impaired Fasting Glucose (ICD-9-CM :790.21 ) Name of Problem: Impaired Fasting Glucose ; Onset Date:07/22/2010 ; Confirmation: Confirmed ; Classification: Medical ; Code: 790.21 ; Contributor System: Arteris ; Last Updated: 06/06/2014 9:13 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 ; 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: Active ; Vocabulary: ICD-9-CM ; Co mments: - Impaired fasting glucose Irregular Menstrual Cycle (ICD-9-CM :626.4 ) Name of Problem: Irregular Menstrual Cycle ; Onset Date: 07/28/2010 ; Confirmation: Confirmed ; Classification: Medical ; Code: 626.4 ; Contributor System: [facility]PL[facility] ; Last Updated: 09/21/2013 19:06 CDT ; 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: Active ; Vocabulary: ICD-9-CM ; Comments: - Irregular menses Mitral valve regurgitation NOS (ICD-9-CM :424.0 ) Name of Problem: Mitral valve regurgitation NOS ; Recorder: TOOTIE LOPEZ LPN; Confirmation: Confirmed ; Classification: Nursing ; Code: 424.0 ; Contributor System: Arteris ; Last Updated: 04/05/2013 10:25 CDT ; Life Cycle Date: 04/05/2013 ; 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: Active ; Responsible Provider: TOOTIE LOPEZ LPN; Vocabulary: ICD-9-CM ; Comments: 04/05/2013 10:25 - TOOTIE LOPEZ LPN unknown date of dx Mixed Hyperlipidemia (ICD-9-CM :272.2 ) Name of Problem: Mixed Hyperlipidemia ; Onset Date: 07/22/2010 ; Confirmation: Confirmed ; Classification: Medical ; Code: 272.2 ; Contributor System: Arteris; Last Updated: 06/06/2014 9:13 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 ; 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: Active ; Vocabulary: [...] Merly Solomon ; Last Updated: 06/06/2014 9:13 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 Anna Riley rec: lifelong coumadin Psoriasis (ICD-9-CM :696.1 ) Name of Problem: Psoriasis ; Recorder: TOOTIE LOPEZ LPN; Confirmation: Confirmed ; Classification: Nursing ; Code: 696.1 ; Contributor System: Arteris ; Last Updated: 04/05/2013 10:24 CDT ; [...] Nursing ; Code: 424.2 ; Contributor System: Arteris ; Last Updated: 04/05/2013 10:25 CDT ; Life Cycle Date: 04/05/2013; 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: Active ; Responsible Provider: TOOTIE LOPEZ LPN; Vocabulary: ICD-9-CM ; Comments: 04/05/2013 10:25 - TOOTIE LOPEZ LPN unknown date of dx Diagnoses(Active) UC - Leg Pain or Swelling Date: 02/13/2016 ; Diagnosis Type: Reason For Visit ; Confirmation: Complaint of ; Clinical Dx: UC - Leg Pain or Swelling ; Classification: Medical ; Clinical Service: Emergency medicine ; Code: PNED ; Probability: 0 ; Diagnosis Code: [id number] Triage Chief Complaint Description : hx of blood clots. CUrrently takes coumadin. Last blood clot 8 years ago. Right leg pain. Mom has noted a hardened area next to the patients ankle. No known injury, recenttravel, or fever. Information Given By : Patient Present in Room During Exam/Procedure : Mother Mode of Arrival ED : Private vehicle, Ambulatory Track : Medical Languages : Malagasy Patient Informed of Triage Location : Urgent Care Treatments Prior to Arrival : Home treatments Are you ? : No Is Patient Female and 13-50 no hysterectomy : Yes Status : Patient denies VARUN HILTON RN - 02/13/2016 10:22 CDT Pain Assessment Pain Symptoms : Yes VARUN HILTON RN - 02/13/2016 10:22 CDT Pain Scale Pain Scale Verbal 0-10 : Open VARUN HILTON RN - 02/13/2016 10:22 CDT Pain Pain Assessment Grid Pain 1 Location : Lower leg VARUN HILTON RN - 02/13/2016 10:22 CDT ИРИНА DCP GENERIC CODE Tracking Acuity : 4 -Less Urgent Tracking Group : [facility] ED VARUN HILTON RN - 02/13/2016 10:22 CDT Source: [facility] [employer] Document Id: [id number]!25 documented in this encounter Plan of Treatment Not on filedocumented as of this encounter Procedures Procedure Name Priority Date/Time Associated Comments Diagnosis AUTOMATED Routine 02/13/2016 11:03 Results for this DIFFERENTIAL, B AM CDT procedure ar e in the results section. PROTHROMBIN TIME Routine 02/13/2016 11:03 Results for this (PT), P AM CDT procedure are i n the results section. D-DIMER, P Routine 02/13/2016 11:03 Results for this AM CDT procedure are i n the results section. CBC WITH Routine 02/13/2016 11:03 Results for this DIFFERENTIAL, B AM CDT procedure ar e in the results section. documented in this encounter Results (ABNORMAL) Automated Differential (02/13/2016 11:03 AM CDT) [facility] Method Time Signature Absolute 2.94 1.70 - POWERCHART Neutrophils 7.00 109L Lymphocytes 0.81 (L) 0.90 - POWERCHART 2.90 X109L Monocytes 0.31 0.30 - POWERCHART 0.90 X109L Eosinophils 0.04 (L) 0.05 - POWERCHART 0.50 X109L Absolute 0.02 0.00 - POWERCHART Basophil 0.30 X109L Specimen Anatomical Collection Method Collection Time Receive d Time (Source) Location / / Volume Laterality Blood 02/13/2016 11:03 02/13/2016 AM CDT 11:03 AM CDT Vielka Zamudio P.A.-C., M.S. LAB BLOOD ADD-ON Performing Organization Address City/[facility]/ZIP Code Phon e Number POWERCHART D-Dimer (02/13/2016 11:03 AM CDT) P athologist Signature D-Dimer, P <0.27 <=0.50 POWERCHART [id number] Comment: Studies have shown that with le vels of D-Dimer less than 1.4, pulmonary embolism and deep vein thrombosis are no t likely. Specimen (Source) Anatomical Collection Method Collection Time Re ceived Time Location / / Volume Laterality Blood 02/13/2016 11:03 AM CDT Vielka Zamudio P.A.-C., M.S. LAB BLOOD ADD-ON Performing Organization Address City/[facility] Code Phon e Number POWERCHART (ABNORMAL) PT (Prothrombin Time) with INR (02/13/2016 11:03 AM CDT) Patholo gist Method Time Signature Prothrombin 21.4 (H) 8.7 - 11.8 POWERCHART Time, P SECONDS INR 2.0 (H) 0.9 - 1.1 POWERCHART INR Comment: Recommended INR for prophylaxis/treatmen t of Venous Thrombosis, Pulmonary Embolism, Myocardial Infarction, and Embolism from Atrial Fibrillation is 2.0- 3.0 (Standard Therapy) Recommended INR for Mechanical Heart Tejal ves and recurrent Systemic Embolism is 2.5-3.5 (Intensive Therapy) Specimen (Source) Anatomical Collection Method Collection Time Re ceived Time Location / / Volume Laterality Blood 02/13/2016 11:03 AM CDT Vielka Zamudio P.A.-C., M.S. LAB BLOOD ADD-ON Performing Organization Address City/State/ZIP Code Phon e Number POWERCHART (ABNORMAL) CBC with Differential (02/13/2016 11:03 AM CDT) P athologist Signature Leukocytes 4.1 3.5 - 10.5 POWERCHART X109L Erythrocytes 4.22 3.90 - POWERCHART 5.03 [id number] Hemoglobin 14.1 12.0 - POWERCHART 15.5 GDL Hematocrit 40.9 34.9 - POWERCHART 44.5 MCV 96.9 81.6 - POWERCHART 98.3 FL HX RDW 13.8 11.9 - POWERCHART 15.5 Platelet Count 149 (L) 150 - 450 POWERCHART X109L Specimen (Source) Anatomical Collection Method Collection Time Re ceived Time Location / / Volume Laterality Blood 02/13/2016 11:03 AM CDT Vielka Zamudio P.A.-C., M.S. LAB BLOOD ADD-ON Performing Organization Address City/State/ZIP Code Phon e Number POWERCHART documented in this encounter Visit Diagnoses Not on filedocumented in this encounter
--- OUTSIDE RECORDS SUMMARY | 2022-04-25 16:01 | XMS_ITS | Encounter Summary ---
:1975 Author Organization [facility] Address [address] [place] [address] Care Team Providers Name Role Phone Unavailable Primary Care Provider Unavailable Encounter Details Date Type Department Care Team Description 03/11/2016 Hospital Encounter HX [facility] Marsha Garibay M.D. [address] [place], [place] [address] (Wo rk) Social History [...] - - Height 148 cm (4' 10.27) 03/11/2016 10:26 AM CDT Body Mass Index - - [...] Date/Time Associated Comments Diagnosis PROTHROMBIN TIME Routine 03/11/2016 10:39 Results for this (PT), P AM CDT procedure are i n the results section. documented in this encounter Results (ABNORMAL) PT (Prothrombin Time) with INR (03/11/2016 10:39 AM CDT) [facility] Method Time Signature Prothrombin 24.5 (H) 8.8 - 11.9 POWERCHART Time, P [...] Time Location / / Volume Laterality Blood 03/11/2016 10:39 AM CDT Sridhar Garibay M.D. LAB BLOOD ADD-ON Performing Organization Address City/State/ZIP Code Phon e Number POWERCHART documented in this encounter Visit Diagnoses Not on filedocumented in this encounter
--- OUTSIDE RECORDS SUMMARY | 2022-04-25 16:01 | XMS_ITS | Encounter Summary ---
:1975 Author Organization [facility] Address [address] [place] [address] Care Team Providers Name Role Phone Unavailable Primary Care Provider Unavailable Encounter Details Date Type Department Care Team Description 02/18/2016 Hospital Encounter HX [facility] ED Gris Lopez APRN, C.N.P., D.N.P. [address], [place] [address] (Wo rk) Social History Tobacco Use Types Packs/Day Years Used Date Smoking Tobacco: Never Assessed Sex Assigned at Date Recorded Not on file documented as of this encounter Last Filed Vital Signs Vital Sign Reading Time Taken Comments Blood Pressure 113/69 02/18/2016 10:24 AM CDT Pulse 82 02/18/2016 10:24 AM CDT Temperature - - Respiratory Rate 16 02/18/2016 10:24 AM CDT Oxygen Saturation - - Inhaled Oxygen Concentration - - Weight 83.9 kg (184 lb 15.5 oz) 02/18/2016 10:24 AM CDT Height - - Body Mass Index 38.3 02/14/2016 1:44 PM CDT documented in this encounter Discharge Summaries Edward Gallegos R.N. - 02/18/2016 1:19 PM CDT ED Discharge Instructions [facility] [address] [place] [id number] Name: DORITA SHEFFIELD Date of : 1975 12:00 AM Visit Date: 02/18/2016 10:04 AM [facility] Number: [id number] Address: [address] [phone] Primary Care Provider: TASHA HENRIQUEZ MD IMPORTANT: [facility] in [place] would like to thank you for allowing us to assist you with your healthcare needs. The following includes patient education materials and information regarding your injury/illness. Diagnosis: Cellulitis Leg R Follow-Up Instructions: Your Upcoming Appointments: Date Time Location Provider 02/18/2016 14:00 [facility] FamilyPrac Gerardo Duarte MD 02/25/2016 08:15 [facility] IOS PROGRAMMER Sujit STANG, Lizzy Benavides Patient Education Materials: Consider Using Patient Online [...] if you dont have one. Go to [email or web address] and click on Create Your Account. Then, follow the directions to complete the online form. Youll be asked for your [facility] number which you can find at the top of this document. ED Tests and Procedures: Order Status CBC (includes Auto Differential) Completed Basic Metabolic Panel Completed PT/INR Completed Culture Blood x 2 Ordered Culture Blood Ordered Culture Blood Ordered Lactic Acid Completed Automated Diff-5 Part Completed Discharge Prescriptions & Home Medications: Medication/Strength Dose Route Frequency Indications/Special Instructions/Comments/Notes warfarin (warfarin 5 mg oral tablet) See Instructions 5mg Mon, 2.5mg all other days or as directed by the INR Clinic as of 12/30/2015 [facility] Prescription (NEW MED) See Instructions Rx mouth [...] a ride home with a responsible democrat. INETTIE, DORITA FROST , or responsible democrat have received this [...] Date Time Provider Signature Date Time Source: [facility] HelpAround Document Id: [id number] Edward Gallegos R.N. - 02/18/2016 1:19 PM CDT ED Depart Summary [facility] Emergency Department Clinical Discharge Summary PERSON INFORMATION Name DORITA SHEFFIELD Age 41 Years 1975 12:00 AM Sex Female Language Nepali PCP TASHA HENRIQUEZ MD Marital Status Single Visit Id Visit Reason Cellulitis of leg; INFECTION ON HER LEG Specialty Enc Type Emergency Med Service Emergency Medicine Referred by Track Group [facility] ED Discharge 02/18/2016 1:00 PM Tracking Id [id number] Checkout 02/18/2016 1:00 PM Checkin 02/18/2016 10:04 AM Acuity 3 -Urgent Dispo Type Disch/Trans ShortTerm Gen Hosp-Inpt Care Arrival 02/18/2016 10:04 AM Reg Status Complete LOS 000 02:56 Address: [address] [facility] [address] [facility] [phone] Comment: PROVIDER INFORMATION Provider Role Provider Contact Time YOBANI ORLANDO ED Dairy Bacteriologist 02/18/16 10:08 MARÍA GONZALEZ TABLE OPERATOR Nurse 02/18/16 10:14 GRIS LOPEZ TECHNICAL ILLUSTRATIONS MAP INKER, OPERATIONS ASSISTANT ED Provider 02/18/16 10:28 CROEY RAYMOND DO ED Provider 02/18/16 10:49 AMBER GALLEGOS RN ED Nurse 02/18/16 12:17 DIAGNOSIS Cellulitis Leg R Comment: PATIENT EDUCATION INFORMATION Instructions: Follow up: Source: [facility] [place] Document Id: [id number] documented in this encounter Medications at Time of Discharge Medication Sig Dispensed Refills Start Date End Date multivitamin tablet Take 2 tablets by 0 3 mouth daily. FLUORIDE, SODIUM, Apply 1 application 0 3 12/31/2019 DENTAL topically 2 (two) times a day. documented as of this encounter ED Notes Edward Gallegos R.N. - 02/18/2016 12:23 PM CDT ED Disposition Summary ED Disposition Summary Entered On: 02/18/2016 12:24 CDT Performed On: 02/18/2016 12:23 CDT by AMBER GALLEGOS RN ED Disposition Summary Nurse Receiving Report : jeff Date/Time Nurse Received Report : 02/18/2016 12:24 CDT Printed Discharge Instructions Given to Patient : No Reason Discharge Instructions Not Given : Transfer to [place] Patient Status at Discharge from ED : Improved AMBER GALLEGOS RN - 02/18/2016 12:23 CDT Source: [facility] [place] Document Id: [id number] CDT!7 María Gonzalez R.N. - 02/18/2016 11:15 AM CDT ED Treatments and Procedures ED Treatments and Procedures Entered On: 02/18/2016 11:23 CDT Performed On: 02/18/2016 11:15 CDT by MARÍA GONZALEZ RN Peripheral IV Peripheral IV Assess/Intervention Grid Peripheral IV #1 IV Activity : Start Number of Attempts : 1 Date of Insertion : 02/18/2016 CDT IV Site : Antecubital Laterality : Left Catheter Size : 20 Catheter Type : Protective Site Condition : No complications MARÍA GONZALEZ RN - 02/18/2016 11:22 CDT Source: [facility] POWERCHART Document Id: [id number] CDT!12 Gris Lopez APRN, C.N.P. - 02/18/2016 10:15 AM CDT Cellulitis of leg Document Contains Addenda Addendum by COREY RAYMOND DO on February 18, 2016 12:51 CDT Patient seen and evaluated along side Gris Lopez NP. I agree with her assessment and plan. In brief, this is a very pleasant 41 yo female with history of prior DVT on coumadin who presents with worsening cellulitis of the right leg. She has previously been treated with ceftriaxone and has been taking doxycycline. She has had progressive redness and warmth despite antibiotics. This is now her third visit for this complaint and I do think she warrants IV antibiotics and hospitalization. A right sided LE ultrasound was performed just a few days ago and was negative for DVT. She has a slightly supratherapeutic INR and I do not think that she has developed a DVT and I do not think that the ultrasound needs repeating. She has no septic physiology and lactate is normal. Blood cultures have been sent. She has no history of MRSA and was treated with IV clindamycin. Her parents live in [place] and they have asked that she be admitted there. I have spoken with the hospitalist Dr. Brasher, who has accepted the patient in transfer. I think she is stable to go by private vehicle. She has been hemodynamically stable here and will be driven to [facility] by her parents. Electronically Signed By: GRIS LOPEZ APRN, CNP On: 02/18/2016 12:46 PM Modified by and Electronically Signed by: GRIS LOPEZ APRN, CNP On: 02/18/2016 11:10 AM Modified by and Electronically Signed by: COREY RAYMOND DO On: 02/18/2016 12:51 PM Cellulitis of leg Patient: DORITA SHEFFIELD Age: 41 years Sex: Female : 1975 Author: LOPEZ, GRIS M TECHNICAL ILLUSTRATIONS MAP INKER, OPERATIONS ASSISTANT Attachments: None Associated Diagnosis: Cellulitis Leg R Basic Information Time seen: Date & time 02/18/2016 10:28:00, Yobani Cha am scribing for and in the presence of Gris Lopez C.N.P, Rudolph., Yobani Cha am scribing for and in the presence of Corey Raymond DO.. History source: Patient, mother, father. Arrival mode: Private vehicle, wheelchair. History limitation: None. Additional information: Chief Complaint from Nursing Triage Note : Chief Complaint Description 02/18/2016 10:14 CDT Chief Complaint Description right lower leg swelling, redness for 1wk, seen twice before, given anitibiotic shot and RX.. is on Coumadin . History of Present Illness 41 year old female with history of cellulitis, lower extremity DVT, and underlying Down's syndrome presents to the ED for evaluation of lower extremity cellulitis. On 02/13/16 patient was seen in UC forevaluation of right lower extremity pain without [...] antibiotics- No reactions were documented.. Medications: (Selected) Prescriptions Prescribed doxycycline hyclate 100 mg oral tablet: 100 mg, 1 tab(s), PO, 2xDay, for 7 day(s), 14 tab(s), 0 Refill(s) warfarin 5 mg oral tablet: See Instructions, 5mg Mon, 2.5mg all other days or as directed by the INRClinic as of 12/30/2015, 54 tab(s), 11 Refill(s) Documented Medications Documented NEW MED: See Instructions, Rx mouth wash - daily Prevident 5000 Plus topical paste: 1 luther, Topical, 2xDay cefTRIAXone: 1 gm, IM, Once multivitamin: 1 tab, PO, Daily. Past Medical/ Family/ Social History Medical history: Reviewed as documented in chart. Surgical history: Laparoscopic cholecystectomy ([id number]) on 06/11/2014 at 39 Years. AV - Atrioventricular valve operation ([id number]) on 03/29/2013 at 38 Years. Comments: 04/05/2013 10:24 - TOOTIE LOPEZ LPN Done at [facility] on 12/04/2012 at 37 Years. Papanicolaou smear taken ([id number]) on 07/19/2010 at 35 Years. 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 Physical Examination Vital Signs: Vital Signs 02/18/2016 10:24 CDT Temperature Core 37 DegC Peripheral Pulse Rate 82 /min Respiratory Rate 16 /min SpO2 98 % Systolic Blood Pressure 113 mmHg Diastolic Blood Pressure 69 mmHg . General: Alert and no acute distress. Skin: Warm, dry and pink. Head: Normocephalic. Neck: Supple and trachea midline. Eye: Normal conjunctiva. Ears, nose, mouth and throat: No pharyngeal erythema or exudate. Cardiovascular: Regular rate and rhythm. Respiratory: Lungs are clear to auscultation. Medical Decision Making Differential Diagnosis:: Cellulitis. Rationale:Patient presents for 3rd visit in less than one week for RLE cellulitis. Previous US ruledout DVT and she is anticoagulated. The cellulitis is extending past previously outlined area. Despite 4 days antibiotic no improvement on doxycycline she will be admitted for IV antibiotics. No signs of systemic infection, afebrile,and no tachycardia. Will obtain baseline BMP, CBC, lactate, and blood cultures prior to IV antibiotic. Will give one dose of clindamycin 600mg IV. Lactate within normal limits and no leukocytosis. . Documents reviewed:Prior records. OrdersLaunch Orders Laboratory: PT/INR (Order Processing): Stat, 02/18/2016 10:48 CDT, Once Basic Metabolic Panel (Order Processing): Stat, 02/18/2016 10:48 CDT, Once CBC (includes Auto Differential) (Order Processing): Stat, 02/18/2016 10:48 CDT, Once Patient Care: Saline Lock (Order Processing): 02/18/2016 10:48 CDT IV-Peripheral (Order Processing): 02/18/2016 10:48 CDT, Launch Orders Pharmacy: NS Bolus (Order Processing): 500 mL, IVPB, Once, Launch Orders Pharmacy: clindamycin (Order Processing): 600 mg, IVPB, Once, launch Order Profile (Selected) Inpatient Orders Ordered (Dispatched) Culture Blood: Culture Blood: Lactate: . Results review:Lab results : Lab View 02/18/2016 11:00 CDT Hgb 12.7 g/dL Hct 38.7 % WBC 6.1 x10(9)/L RBC 3.91 x10(12)/L MCV 99.0 fL HI RDW 13.6 % Platelet 178 x10(9)/L Neutro Absolute 4.59 10(9)/L Lymph Absolute 0.93 x10(9)/L [place] Absolute 0.51 x10(9)/L Eos Absolute 0.00 x10(9)/L LOW Baso Absolute 0.02 x10(9)/L PT 40.9 second(s) HI INR 3.6 INR HI Sodium Lvl 135 mmol/L Potassium Lvl 4.3 mmol/L Chloride 96 mmol/L LOW CO2 26 mmol/L AGAP 13 mmol/L Glucose Lvl 153 mg/dL HI Creatinine 1.06 mg/dL EGFR (MDRD) 57 mL/min/1.73m2 LOW EGFR (MDRD) >60 mL/min/1.73m2 BUN 11 mg/dL Calcium Lvl 9.3 mg/dL Lactic Acid Lvl 1.6 mmol/L . Reexamination/ Reevaluation 1150 Patient lives in [place], but has been staying with parents during this illness. They would like patient to be admitted in [place] over [place] for convenience factor. We did notify [place] Hospitalist and they did agree to admit patient from [facility] ER. Patient is clinicallystable and afebrile. 1245 [...] Family verbalizes understanding and agrees with plan. Electronically Signed By: GRIS LOPEZ APRN, CNP On: 02/18/2016 12:46 PM Modified by and Electronically Signed by: GRIS LOPEZ APRN, CNP On: 02/18/2016 11:10 AM Source: [facility] POWERCHART Document Id: [id number]} María Gonzalez RViktor - 02/18/2016 10:14 AM CDT ED Primary Assessment Document Has Been Updated ED Primary Assessment Entered On: 02/18/2016 10:22 CDT Performed On: 02/18/2016 10:14 CDT by MARÍA GONZALEZ RN Reason For Visit (As Of: 02/18/2016 10:22:16 CDT) Problems(Active) Atrioventricular canal (SNOMED CT :994496113 ) Name of Problem: Atrioventricular canal ; Onset Date:03/26/2013 ; Recorder: TOOTIE LOPEZ LPN; Confirmation: Confirmed ; Classification: Nursing ; Code: 253020910 ; Contributor System: [facility] ; Last Updated: 04/05/2013 10:22 CDT ; Life Cycle Date: 04/05/2013 ; 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: Active ; Responsible Provider: TOOTIE LOPEZ LPN; Vocabulary: SNOMED CT ; Comments: 04/05/2013 10:22 - TOOTIE LOPEZ LPN defect, transitional Cellulitis, NOS (ICD-9-CM :682.9 ) Name of Problem: Cellulitis, NOS ; Recorder: TOOTIE LOPEZ LPN; Confirmation: Confirmed ; Classification: Nursing ; Code: 682.9 ; Contributor System: [facility] ;Last Updated: 04/05/2013 10:27 CDT ; Life [...] System: Power[facility] ; Last Updated: 05/29/2014 11:11 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 SPECIALIST ; 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: Active ; Responsible Provider: BELLA NULL MD; Vocabulary: ICD-9-CM Impaired Fasting Glucose (ICD-9-CM :790.21 ) Name of Problem: Impaired Fasting Glucose ; Onset Date:07/22/2010 ; Confirmation: Confirmed ; Classification: Medical ; Code: 790.21 ; Contributor System: [facility] ; Last Updated: 06/06/2014 9:13 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 ; 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: Active ; Vocabulary: ICD-9-CM ; Co mments: - Impaired fasting glucose Irregular Menstrual Cycle (ICD-9-CM :626.4 ) Name of Problem: Irregular Menstrual Cycle ; Onset Date: 07/28/2010 ; Confirmation: Confirmed ; Classification: Medical ; Code: 626.4 ; Contributor System: [facility]_HX_PR_UPLOAD ; Last Updated: 09/21/2013 19:06 CDT ; 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: Active ; Vocabulary: ICD-9-CM ; Comments: - Irregular menses Mitral valve regurgitation NOS (ICD-9-CM :424.0 ) Name of Problem: Mitral valve regurgitation NOS ; Recorder: TOOTIE LOPEZ LPN; Confirmation: Confirmed ; Classification: Nursing ; Code: 424.0 ; Contributor System: [facility] ; Last Updated: 04/05/2013 10:25 CDT ; Life Cycle Date: 04/05/2013 ; 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: Active ; Responsible Provider: TOOTIE LOPEZ LPN; Vocabulary: ICD-9-CM ; Comments: 04/05/2013 10:25 - TOOTIE LOPEZ LPN unknown date of dx Mixed Hyperlipidemia (ICD-9-CM :272.2 ) Name of Problem: Mixed Hyperlipidemia ; Onset Date: 07/22/2010 ; Confirmation: Confirmed ; Classification: Medical ; Code: 272.2 ; Contributor System: [facility]; Last Updated: 06/06/2014 9:13 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 ; 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: Active ; Vocabulary: ICD-9-CM ; Comments: -Mixed hyperlipidemia Recommend lifestyle changes (diet, exercise, weight loss) Phlebitis and Thrombophlebitis of Other Deep Vessels of Lower Extremities (ICD-9-CM :451.19 ) Name of Problem: Phlebitis and Thrombophlebitis of Other Deep Vessels of Lower Extremities ; Onset Date: 06/08/2007 ; Confirmation: Confirmed ; Classification: Medical ; Code: 451.19 ; Contributor System: [facility] ; Last Updated: 06/06/2014 9:13 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 ; 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: Active ; Vocabulary: ICD-9-CM ; Comments: - Phlebitis and thrombophlebitis of other deep vessels of lower extremities Primary Hypercoagulable State (ICD-9-CM :289.81 ) Name of Problem: Primary Hypercoagulable State ; Onset Date: 01/29/2008 ; Confirmation: Confirmed ; Classification: Medical ; Code: 289.81 ; Contributor System: [facility]_HX_PR_UPLOAD ; Last Updated: 09/21/2013 19:06 [...] LOPEZ LPN unknown date of dx Diagnoses(Active) Cellulitis of leg Date: 02/18/2016 ; Diagnosis Type: Reason For Visit ; Confirmation: Complaint of ;Clinical Dx: Cellulitis of leg ; Classification: Medical ; Clinical Service: Emergency medicine ; Code: PNED ; Probability: 0 ; Diagnosis Code: [id number] Triage Chief Complaint Description : right lower leg swelling, redness for 1wk, seen twice before, given anitibiotic shot and RX.. is on Coumadin Information Given By : Patient, Mother Present in Room During Exam/Procedure : Father, Mother Mode of Arrival ED : Private vehicle, Ambulatory, Wheelchair Track : Medical Languages : Nepali Patient Informed of Triage Location : Emergency department [facility] Assessed : Yes Treatments Prior to Arrival : Home treatments Are you ? : No Is Patient Female and 13-50 no hysterectomy : Yes Status : Patient denies MARÍA GONZALEZ RN - 02/18/2016 10:14 CDT [place] Coma Eye Opening Response Kathleen : Spontaneously Best Verbal Response Kathleen : Oriented Best Motor Response Kathleen : Obeys simple commands [place] Coma Score : 15 MARÍA GONZALEZ RN - 02/18/2016 10:14 CDT Pain Assessment Pain Symptoms : Yes MARÍA GONZALEZ RN - 02/18/2016 10:14 CDT Pain Scale Pain Scale Verbal 0-10 : Open MARÍA GONZALEZ RN - 02/18/2016 10:14 CDT Pain Pain Assessment Grid Pain 1 Location : Lower leg Laterality : Right Intensity : 9 MARÍA GONZALEZ RN - 02/18/2016 10:14 CDT ИРИНА DCP GENERIC CODE Tracking Acuity : 3 -Urgent Tracking Group : RW ED MARÍA GONZALEZ RN - 02/18/2016 10:14 CDT Respiratory Airway : Patent Respirations : Unlabored Respiratory Pattern : Regular Oxygen Therapy : Room air Respiratory Detailed Assessment : Yes MARÍA GONZALEZ RN - 02/18/2016 10:14 CDT Resp Detailed Respiratory Patient Stated Symptoms : None Cough : None MARÍA GONZALEZ ANGELINE - 02/18/2016 10:14 CDT Breath Sounds Assessment Grid ARSENIO : Clear RUL : Clear MARÍA GONZALEZ RN - 02/18/2016 10:14 CDT Cardiovascular Heart Rhythm : Regular Skin Color : Normal for ethnicity Skin Description : Dry Skin Temperature : Warm MARÍA GONZALEZ RN - 02/18/2016 10:14 CDT Neurological Last Well Time Known : Not applicable Level of Consciousness : Alert Orientation : Oriented x 3 Characteristics of Speech : Appropriate for age Neuro Patient Stated Symptoms : None Gait : Stiff MARÍA GONZALEZ RN - 02/18/2016 10:14 CDT ED Psychosocial Affect/Behavior : Calm Domestic Abuse Concerns : None Behavioral Health Screen/Safety Assmt : No MARÍA GONZALEZ RN - 02/18/2016 10:14 CDT Gastrointestinal Nutrition ED : Adequate GI Detailed Assessment : Yes MARÍA GONZALEZ RN - 02/18/2016 10:14 CDT GI Detailed GI Patient Stated Symptoms : None Last Oral Intake : toast,juice Abdomen Description : Obese MARÍA GONZALEZ RN - 02/18/2016 10:14 CDT Bowel Sounds Grid LUQ : Hypoactive RUQ : Hypoactive LLQ : Hypoactive RLQ : Hypoactive MARÍA GONZALEZ RN - 02/18/2016 10:14 CDT Musculoskeletal Fall Prevention Education Provided : NA Activity Mando : Walks occasionally Ambulatory Devices : None MARÍA GONZALEZ RN - 02/18/2016 10:14 CDT Social Habits Exposure to Tobacco Smoke : Other: never smoker Smoking Status : Never smoker Tobacco 2A : No Tobacco Use/Currently Using : No Tobacco Use/Last 30 Days : No Tobacco Use/Last 12 months : No MARÍA GONZALEZ RN - 02/18/2016 10:14 CDT Alcohol Use Grid Alcohol Use : Yes Frequency : Occasionally MARÍA GONZALEZ RN - 02/18/2016 10:14 CDT Recreational Drug Use Grid Drug Use : None MARÍA GONZALEZ RN - 02/18/2016 10:14 CDT Source: [facility] [place] Document Id: [id number] CDT!91 documented in this encounter Miscellaneous Notes Miscellaneous - Edward Gallegos R.N. - 02/18/2016 1:03 PM CDT Valuables/Belongings Valuables/Belongings Entered On: 02/18/2016 13:03 CDT Performed On: 02/18/2016 13:03 CDT by AMBER GALLEGOS RN Valuables/Belongings Comment : All items removed from the room AMBER GALLEGOS RN - 02/18/2016 13:03 CDT Source: [facility] [place] Document Id: [id number] CDT!3 Miscellaneous - Conversion, Historical Provider Ser - 02/18/2016 1:00 PM CDT Coding Summary-Paper Based CODING DATE: 02/25/2016 FINAL [facility] STATUS: Disch/Trans ShortTerm Gen Hosp-Inpt Care PAYOR: Medicare Advantage ADMIT DX: L03.115 Cellulitis of right lower limb REASON FOR VISIT DX: L03.115 Cellulitis of right lower limb FINAL DX: PRINCIPAL: L03.115 Cellulitis of right lower limb SECONDARY: E78.2 Mixed hyperlipidemia Z91.030 Bee allergy status PROCEDURES DOCTOR NAME DATE NOTE: The code number assigned matches the documented diagnosis and / or procedure in the patient's chart. However, the narrative phrase printed from the coding software may appear abbreviated, or result in slightly different terminology. Coded By: JUAN JOSE CHERRY Date Saved: 02/25/2016 07:30 pm Source: [facility] POWERCHART Document Id: [id number] Miscellaneous - Edward Gallegos R.N. - 02/18/2016 10:04 AM CDT Facility Charge Ticket 2.0 11.0 DX Facility Charge Ticket 2.0 11.0 DX Entered On: 02/18/2016 13:03 CDT Performed On: 02/18/2016 10:04 CDT by AMBER GALLEGOS RN Facility Charge Ticket 2.0 11.0 DX ED Other Charges : Standard ED Encounter TVL Level Translated RTF : Cellulitis of leg TVL:3 TVL Level for Facility Charge Ticket : Level 3 Arrival Mode Calc : 1 Mode of Arrival ED : Private vehicle, Ambulatory, Wheelchair [facility] Mode of Arrival Interpreted : Standard [facility] Process Management : None Order Management RTF : Laboratory CBC (includes Auto Differential),02/18/16 10:48,GRIS LOPEZ APRN, CNP Completed Basic Metabolic Panel,02/18/16 10:48,GRIS LOPEZ APRN, CNP Completed PT/INR,02/18/16 10:48,GRIS LOPEZ APRN, CNP Completed Lactate,02/18/16 10:53,COREY RAYMOND DO Completed Automated Diff-5 Part,02/18/16 11:07,GRIS LOPEZ APRN, CNP Completed Culture Blood x 2,02/18/16 10:52,COREY RAYMOND DO Ordered Culture Blood,02/18/16 10:53,COREY RAYMOND DO Ordered Culture Blood,02/18/16 10:53,COREY RAYMOND DO Ordered [facility] Order Management : Lab tests 30 Minutes Critical Care : No Nursing Notes RTF : Nursing Notes ED Primary Assessment,02/18/16 10:14,MARÍA GONZALEZ RN [facility] Nursing Assessment : Triage and 1-2 nursing assessments [facility] Disposition : Admit - Observation, Inpatient, or other Outpatient Disposition RTF : Inpt [facility] Total Points with Diagnosis Control : 10 [facility] Visit Level : 70732 Level 4 Treatments Prior to Arrival : Home treatments AMBER GALLEGOS RN - 02/18/2016 13:03 CDT Source: [facility] POWERCHART Document Id: [id number] CDT!19 documented in this encounter Plan of Treatment Not on filedocumented as of this encounter Procedures Procedure Name Priority Date/Time Associated Comments Diagnosis BACTERIAL CULTURE, Routine 02/18/2016 11:17 Resul ts for this BLOOD AM CDT procedure are i n the results section. BACTERIAL CULTURE, Routine 02/18/2016 11:08 Resul ts for this BLOOD AM CDT procedure are i n the results section. AUTOMATED Routine 02/18/2016 11:00 Results for this DIFFERENTIAL, B AM CDT procedure ar e in the results section. PROTHROMBIN TIME Routine 02/18/2016 11:00 Results for this (PT), P AM CDT procedure are i n the results section. CBC WITH Routine 02/18/2016 11:00 Results for this DIFFERENTIAL, B AM CDT procedure ar e in the results section. LACTATE, B/P Routine 02/18/2016 11:00 Results for this AM CDT procedure are i n the results section. BASIC METABOLIC Routine 02/18/2016 11:00 Results for this PANEL, S/P AM CDT procedure are i n the results section. documented in this encounter Results Bacterial Culture, Blood (02/18/2016 11:17 AM CDT) [facility] gist Method Time Signature Bacteria/Temi POWERCHART da Culture, Blood HXPre No growth POWERCHART at 24 hours. HXPre No growth POWERCHART at 48 hours. HXPre No growth POWERCHART at 3 days. HXPre No growth POWERCHART at 4 days. HXFinal No growth POWERCHART at 5 days. Specimen (Source) Anatomical Collection Method Collection Time Re ceived Time Location / / Volume Laterality Blood (Arm, 02/18/2016 11:17 Right) AM CDT Corey JOHNSON MICROBIOLOGY - GENERAL O RDERABLES Performing Organization Address City/State/ZIP Code Phon e Number POWERCHART Bacterial Culture, Blood (02/18/2016 11:08 AM CDT) [place] Method Time Signature Bacteria/Temi POWERCHART da Culture, Blood HXPre No growth POWERCHART at 24 hours. HXPre No growth POWERCHART at 48 hours. HXPre No growth POWERCHART at 3 days. HXPre No growth POWERCHART at 4 days. HXFinal No growth POWERCHART at 5 days. Specimen (Source) Anatomical Collection Method Collection Time Re ceived Time Location / / Volume Laterality Blood (Arm, 02/18/2016 11:08 Right) AM CDT Corey Raymond D.O. LAB MICROBIOLOGY - GENERAL O RDERABLES Performing Organization Address City/[facility]/ZIP Code Phon e Number POWERCHART (ABNORMAL) Automated Differential (02/18/2016 11:00 AM CDT) [place] Method Time Signature Absolute 4.59 1.70 - POWERCHART Neutrophils 7.00 109L Lymphocytes 0.93 0.90 - POWERCHART 2.90 X109L Monocytes 0.51 0.30 - POWERCHART 0.90 X109L Eosinophils 0.00 (L) 0.05 - POWERCHART 0.50 X109L Absolute 0.02 0.00 - POWERCHART Basophil 0.30 X109L Specimen Anatomical Collection Method Collection Time Receive d Time (Source) Location / / Volume Laterality Blood 02/18/2016 11:00 02/18/2016 AM CDT 11:00 AM CDT Gris Lopez APRN, C.N.P., D.N.P. LAB BLOOD ADD-ON Performing Organization Address City/[facility] Code Phon e Number POWERCHART (ABNORMAL) PT (Prothrombin Time) with INR (02/18/2016 11:00 AM CDT) [place] Method Time Signature Prothrombin 40.9 (H) 8.7 - 11.8 POWERCHART Time, P SECONDS INR 3.6 (H) 0.9 - 1.1 POWERCHART INR Comment: Recommended INR for prophylaxis/treatmen t of Venous Thrombosis, Pulmonary Embolism, Myocardial Infarction, and Embolism from Atrial Fibrillation is 2.0- 3.0 (Standard Therapy) Recommended INR for Mechanical Heart Tejal ves and recurrent Systemic Embolism is 2.5-3.5 (Intensive Therapy) Specimen (Source) Anatomical Collection Method Collection Time Re ceived Time Location / / Volume Laterality Blood 02/18/2016 11:00 AM CDT Gris Lopez APRN C.N.P., D.N.P. LAB BLOOD ADD-ON Performing Organization Address City/State/ZIP Code Phon e Number POWERCHART (ABNORMAL) CBC with Differential (02/18/2016 11:00 AM CDT) Analysis Performed At Patho logist Time Signature Leukocytes 6.1 3.5 - 10.5 POWERCHART X109L Erythrocytes 3.91 3.90 - POWERCHART 5.03 X0695C Hemoglobin 12.7 12.0 - POWERCHART 15.5 GDL Hematocrit 38.7 34.9 - POWERCHART 44.5 MCV 99.0 (H) 81.6 - POWERCHART 98.3 FL HX RDW 13.6 11.9 - POWERCHART 15.5 Platelet Count 178 150 - 450 POWERCHART X109L Specimen (Source) Anatomical Collection Method Collection Time Re ceived Time Location / / Volume Laterality Blood 02/18/2016 11:00 AM CDT Danie Mata APRN.N.P., D.N.P. LAB BLOOD ADD-ON Performing Organization Address City/[facility]/ZIP Code Phon e Number POWERCHART Lactate (02/18/2016 11:00 AM CDT) P athologist Signature Lactate, P 1.6 0.5 - 2.2 POWERCHART MMOLL Comment: No pediatric reference range es tablished Specimen (Source) Anatomical Collection Method Collection Time Re ceived Time Location / / Volume Laterality Blood 02/18/2016 11:00 AM CDT Corey Raymond D.O. LAB BLOOD NON ADD-ON Performing Organization Address City/State/ZIP Code Phon e Number POWERCHART (ABNORMAL) BMP (Basic Metabolic Panel) (02/18/2016 11:00 AM CDT) P athologist Signature Sodium, S 135 135 - 145 POWERCHART MMOLL Potassium, S 4.3 3.6 - 5.2 POWERCHART MMOLL Chloride, S 96 (L) 98 - 107 POWERCHART MMOLL CO2 Total 26 22 - 29 POWERCHART MMOLL BUN (Blood Urea 11 6 - 21 POWERCHART Nitrogen), S MGDL Creatinine 1.06 0.60 - POWERCHART 1.10 MGDL Calcium, Total, 9.3 8.6 - 10.3 POWERCHART S MGDL Anion Gap 13 10 - 20 POWERCHART MMOLL Glucose 153 (H) 70 - 139 POWERCHART MGDL eGFR >60 >=60 POWERCHART Black/ [id number] Slovenian HXeGFR (MDRD) 57 (L) >=60 POWERCHART [id number] Comment: Results are in mL/min/1.73m CKD Stage I: ? GFR > 90 CKD Stage II: ?GFR 60 to 89 CKD Stage III: ? GFR 30 to 59 CKD Stage IV: ? GFR 15 to 29 CKD Stage V: ?GFR < 15 or Dialysi s Specimen (Source) Anatomical Collection Method Collection Time Re ceived Time Location / / Volume Laterality Blood 02/18/2016 11:00 AM CDT Gris Lopez APRN, C.N.P., D.N.P. LAB BLOOD ADD-ON Performing Organization Address City/State/ZIP Code Phon e Number POWERCHART documented in this encounter Visit Diagnoses Not on filedocumented in this encounter
--- OUTSIDE RECORDS SUMMARY | 2022-04-25 16:02 | XMS_ITS | Encounter Summary ---
:1975 Author Organization [facility] Address [address] [place] [id number] Care Team Providers Name Role Phone Unavailable Primary Care Provider Unavailable Encounter Details Date Type Department Care Team Description 03/05/2015 Hospital Encounter [facility]X [facility] Mrasha Henriquez M.D. [address] [place], [place] [address] (Wo rk) Social History [...] Concentration - - Weight - - Height 147 cm (4' 9.87) 03/05/2015 7:43 AM CDT Body Mass Index - - documented in this encounter Medications at Time of Discharge Medication Sig Dispensed Refills Start Date End Date multivitamin tablet Take 2 tablets by 0 3 mouth daily. FLUORIDE, SODIUM, Apply 1 application 0 3 12/31/2019 DENTAL topically 2 (two) times a day. documented as of this encounter Miscellaneous Notes Miscellaneous - Wali Mcclellan - 03/05/2015 10:35 AM CDT Anticoagulation Patient Intake Anticoagulation Patient Intake Entered On: 03/05/2015 10:38 CDT Performed On: 03/05/2015 10:35 CDT by WALI MCCLELLAN RN Plan INR goal range : 2.0 - 3.0 Duration of Therapy : Lifelong Tablet Size : 5 mg WALI MCCLELLAN RN - 03/05/2015 10:35 CDT Anticoagulation Management Plan Grid Date : [...] darya BURGESS JM WALI Ervin RN - 03/05/2015 10:35 CDT WALI MCCLELLAN RN - 03/05/2015 10:35 CDT WALI MCCLELLAN RN - 03/05/2015 10:35 CDT WALI MCCLELLAN RN - 03/05/2015 10:35 CDT Date : 12/26/2013 CDT 01/30/2014 CDT [...] a long time, no bleeding now left [facility] for Fabiola,call if changes Recommend Recheck : Other: 5 weeks Other: 5 weeks Other: 03/10/2014 Other: 03/20/14 Plan completed by : WALI Davidson RN - 03/05/2015 10:35 CDT WALI MCCLELLAN RN - 03/05/2015 10:35 CDT WALI MCCLELLAN RN - 03/05/2015 10:35 CDT WALI MCCLELLAN RN - 03/05/2015 10:35 CDT Date : 03/20/2014 CDT 03/27/2014 CDT [...] Other: Plan completed by : darya [facility]/pharmacy WALI MCCLELLAN RN - 03/05/2015 10:35 CDT WALI MCCLELLAN RN - 03/05/2015 10:35 CDT WALI MCCLELLAN RN - 03/05/2015 10:35 CDT WALI MCCLELLAN RN - 03/05/2015 10:35 CDT Date : 04/17/2014 CDT 04/24/2014 CDT 05/01/2014 [employer] WORKER 05/15/2014 [employer] WORKER Location of INR sample : Lab Lab [...] will trynoted dose called to mom Fabiola [phone] called to Fabiola/no changes Called to mother/Fabiola, not awareof any changes Recommend Recheck : One week One week Two weeks Two weeks Plan completed by : WALI CHOI RN - 03/05/2015 10:35 CDT WALI MCCLELLAN RN - 03/05/2015 10:35 CDT WALI MCCLELLAN RN - 03/05/2015 10:35 CDT WALI MCCLELLAN RN - 03/05/2015 10:35 CDT Date : 06/03/2014 [employer]ISHING WORKER 06/05/2014 [employer] FINISHING WORKER 06/10/2014 [employer] FINISHING WORKER 06/11/2014 [employer] FINISHING WORKER Location of INR sample : Lab Type [...] Fabiola granados. Hue will be staying in [place] 2wks post-surgery & have INR drawn there. [...] completed by : WALI TYLER RN - 03/05/2015 10:35 CDT WALI MCCLELLAN RN - 03/05/2015 10:35 CDT WALI MCCLELLAN RN - 03/05/2015 10:35 CDT WALI MCCLELLAN RN - 03/05/2015 10:35 CDT Date : 06/14/2014 [employer] FINISHING WORKER 06/14/2014 [employer]ING [employer] FINISHING WORKER 06/16/2014 [employer] FINISHING WORKER 06/23/2014 [employer] FINISHING WORKER Location of INR sample : Clinic Lab Lab Type of Sample : Venous Venous INR Result : 1.3 on 06/13 2.4 faxed from lab 2.0 Warfarin Dose : (pt took 2.5mg 06/13) 5mg Sat and 5mg Sun (06/14 and 06/15) 5mg Mon and 2.5mg all other days 5mg Mon and 2.5mg all other days Total Weekly Warfarin Dose : 20 20 Comment : [place] lab called with INR result from 06/13, reported they left a message with Dr. Henriquez and hadn't heard back, spoke with mother, Fabiola, and gave doses, continue Lovenox and repeat INR 06/16, message left with INR clinic in to contact CF Please contact [facility] on 06/16 for result and may call Fabiola at [phone] with instructions call to Fabiola/will stop Lovenox injections and take noted dose/pt has an appt here in [place] 06/23 so will do lab appt here that day Called to Fabiola/ Hue will be back at [facility] by next draw. will have done on . no changes to meds/diet. Recommend Recheck : Two days One week Two weeks Plan completed by : WALI Steven LM, RN - 03/05/2015 10:35 CDT WALI MCCLELLAN RN - 03/05/2015 10:35 CDT WALI MCCLELLAN RN - 03/05/2015 10:35 CDT WALI MCCLELLAN RN - 03/05/2015 10:35 CDT Date : 07/10/2014 [employer]ISHING WORKER 07/17/2014 [employer]ISHING WORKER 07/31/2014 [employer]ING [employer] FINISHING WORKER 09/11/2014 CDT Location of INR sample : [...] completed by : WALI Yarbrough RN - 03/05/2015 10:35 CDT WALI MCCLELLAN RN - 03/05/2015 10:35 CDT WALI MCCLELLAN RN - 03/05/2015 10:35 CDT WALI MCCLELLAN RN - 03/05/2015 10:35 CDT Date : 09/12/2014 CDT 09/25/2014 CDT [...] completed by : WALI Almaguer RN - 03/05/2015 10:35 CDT WALI MCCLELLAN RN - 03/05/2015 10:35 CDT WALI MCCLELLAN RN - 03/05/2015 10:35 CDT WALI MCCLELLAN RN - 03/05/2015 10:35 CDT Date : 10/23/2014 CDT 11/13/2014 CDT [...] change is she is exercising alot for vIPtela/no bleeding/consult with Quintin/Pharmacy and called Mom with orders Per Meredith Hernandez, no changes, has been drinking some Kiwi Juice, no bleeding/consult with Quintin/Pharmacy Called to mom /Fabiola, no changes, [facility] Recommend Recheck : Three weeks One week One week One week Plan completed by : WALI Skinner RN - 03/05/2015 10:35 CDT WALI MCCLELLAN RN - 03/05/2015 10:35 CDT WALI MCCLELLAN RN - 03/05/2015 10:35 CDT WALI MCCLELLAN RN - 03/05/2015 10:35 CDT Date : 12/04/2014 CDT 12/18/2014 CDT [...] completed by : WALI Cabrera RN - 03/05/2015 10:35 CDT WALI MCCLELLAN RN - 03/05/2015 10:35 CDT WALI MCCLELLAN RN - 03/05/2015 10:35 CDT WALI MCCLELLAN RN - 03/05/2015 10:35 CDT Date : 02/05/2015 CDT 02/26/2015 CDT 03/05/2015 CDT Location of INR sample : Lab Lab Lab Type of Sample : Venous Venous Venous INR Result : 2.6 3.8 2.9 Warfarin Dose : 5mg Mon and Thurs and 2.5mg all other days Hold 02/26, then 5mg Mon & Thurs, 2.5mgall other days 5mg Mon & Thurs, 2.5mg all other days Total Weekly Warfarin Dose : 22.5 22.5 22.5 Comment : Called to Mom/Fabiola,no changes Called to Mom/Fabiola, had period last wk & took some Midol, no other changes/bleeding Called to Mom/Fabiola, no changes Recommend Recheck : Other: 02/26/15 One week Two weeks Plan completed by : WALI WYLIE RN - 03/05/2015 10:35 CDT WALI MCCLELLAN RN - 03/05/2015 10:35 CDT WALI MCCLELLAN RN - 03/05/2015 10:35 CDT Anticoagulation Assessment / History Visit : Phone management Plan of Care Date : 01/29/2008 CDT Primary Physician Anticoagulation : TASHA HENRIQUEZ MD 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 - 03/05/2015 10:04 AM CDT Results Notification From: MELI CAMPO RN ( Anticoagulation Nurse) To: Anticoagulation Nurse; Sent: 03/05/2015 10:04:39 CDT Show up: 03/05/2015 10:05:00 CDT Subject: Results Notification Results: Date Result Name Value Ref Range 03/05/2015 08:09 PT 33.0 second(s) (8.7 - 11.8) 03/05/2015 08:09 INR 2.9 INR (0.9 - 1.1) Source: [facility] KFL Investment ManagementCHART Document Id: [id number] Electronically signed by Lay Cohen Children's Medical Centersylvia Government Teacher [id number] at 11/21/2016 7:46 PM CDT Miscelllucian - Wali Mcclellan - 03/05/2015 10:04 AM CDT Results Notification Document Contains Addenda Addendum by WALI MCCLELLAN RN on 05 March 2015 10:40:11 CDT Orders called to Mom/Fabiola. From: WALI MCCLELLAN RN ( Anticoagulation Nurse) To: Anticoagulation Nurse; Sent: 03/05/2015 10:04:34 CDT Show up: 03/05/2015 10:05:00 CDT Subject: Results Notification Results: Date Result Name Value Ref Range 03/05/2015 08:09 PT 33.0 second(s) (8.7 - 11.8) 03/05/2015 08:09 INR 2.9 INR (0.9 - 1.1) Source: [facility] POWERCHART Document Id: [id number] Electronically signed by Conversion, [facility] Government Teacher [id number] at 11/21/2016 7:46 PM CDT documented in this encounter Plan of Treatment Not on filedocumented as of this encounter Procedures Procedure Name Priority Date/Time Associated Comments Diagnosis PROTHROMBIN TIME Routine 03/05/2015 8:09 AM Resul ts for this (PT), P CDT procedure are i n the results section. documented in this encounter Results (ABNORMAL) PT (Prothrombin Time) with INR (03/05/2015 8:09 AM CDT) [facility] Method Time Signature Prothrombin 33.0 (H) 8.7 - 11.8 POWERCHART Time, P SECONDS INR 2.9 (H) 0.9 - 1.1 POWERCHART INR Comment: Recommended INR for prophylaxis/treatmen t of Venous Thrombosis, Pulmonary Embolism, Myocardial Infarction, and Embolism from Atrial Fibrillation is 2.0- 3.0 (Standard Therapy) Recommended INR for Mechanical Heart Tejal ves and recurrent Systemic Embolism is 2.5-3.5 (Intensive Therapy) Specimen (Source) Anatomical Collection Method Collection Time Re ceived Time Location / / Volume Laterality Blood 03/05/2015 8:09 AM CDT Tasha Henriquez M.D. LAB BLOOD ADD-ON Performing Organization Address City/State/ZIP Code Phon e Number POWERCHART documented in this encounter Visit Diagnoses Not on filedocumented in this encounter
--- OUTSIDE RECORDS SUMMARY | 2022-04-25 16:02 | XMS_ITS | Encounter Summary ---
:1975 Author Organization [facility] Address [address] [place] [address] Care Team Providers Name Role Phone Unavailable Primary Care Provider Unavailable Encounter Details Date Type Department Care Team Description 02/26/2015 Hospital Encounter HX [facility] Marsha Henriquez M.D. [address] [place], [place] [address] (Wo rk) Social History [...] - - Height 147 cm (4' 9.87) 02/26/2015 7:08 AM CDT Body Mass Index - - documented in this encounter Medications at Time of Discharge Medication Sig Dispensed Refills Start Date End Date multivitamin tablet Take 2 tablets by 0 3 mouth daily. FLUORIDE, SODIUM, Apply 1 application 0 3 12/31/2019 DENTAL topically 2 (two) times a day. documented as of this encounter Miscellaneous Notes Miscellaneous - Wali Mcclellan - 02/26/2015 10:04 AM CDT Anticoagulation Patient Intake Anticoagulation Patient Intake Entered On: 02/26/2015 10:09 CDT Performed On: 02/26/2015 10:04 CDT by WALI MCCLELLAN RN Plan INR goal range : 2.0 - 3.0 Duration of Therapy : Lifelong Tablet Size : 5 mg WALI MCCLELLAN RN - 02/26/2015 10:04 CDT Anticoagulation Management Plan Grid Date : [...] completed by : WALI Tracy RN - 02/26/2015 10:04 CDT WALI MCCLELLAN RN - 02/26/2015 10:04 CDT WALI MCCLELLAN RN - 02/26/2015 10:04 CDT WALI MCCLELLAN RN - 02/26/2015 10:04 CDT Date : 12/26/2013 CDT 01/30/2014 CDT [...] time, no bleeding [place] [facility] [place]call if changes Recommend Recheck : Other: 5 weeks Other: 5 weeks Other: 03/10/2014 Other: 03/20/14 Plan completed by : WALI Davidson RN - 02/26/2015 10:04 CDT WALI MCCLELLAN RN - 02/26/2015 10:04 CDT WALI MCCLELLAN RN - 02/26/2015 10:04 CDT WALI MCCLELLAN RN - 02/26/2015 10:04 CDT Date : 03/20/2014 CDT 03/27/2014 CDT [...] Other: Plan completed by : darya lackey [facility]pharmacy WALI MCCLELLAN RN - 02/26/2015 10:04 CDT WALI MCCLELLAN RN - 02/26/2015 10:04 CDT WALI MCCLELLAN RN - 02/26/2015 10:04 CDT WALI MCCLELLAN RN - 02/26/2015 10:04 CDT Date : 04/17/2014 CDT 04/24/2014 CDT 05/01/2014 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 05/15/2014 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 Location of INR sample : Lab Lab [...] will trynoted dose called to mom Fabiola [phone] called to Fabiola/no changes Called to mother/Fabiola, not awareof any changes Recommend Recheck : One week One week Two weeks Two weeks Plan completed by : WALI CHOI RN - 02/26/2015 10:04 CDT WALI MCCLELLAN RN - 02/26/2015 10:04 CDT WALI MCCLELLAN RN - 02/26/2015 10:04 CDT WALI MCCLELLAN RN - 02/26/2015 10:04 CDT Date : 06/03/2014 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 06/05/2014 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 06/10/2014 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 06/11/2014 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 Location of INR sample : Lab Type [...] Fabiola granados. Hue will be staying in [place] 2wks post-surgery & have INR drawn there. [...] completed by : WALI TYLER RN - 02/26/2015 10:04 CDWALI OGLESBY RN - 02/26/2015 10:04 CDT WALI MCCLELLAN RN - 02/26/2015 10:04 CDWALI OGLESBY RN - 02/26/2015 10:04 CDT Date : 06/14/2014 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 06/14/2014 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 06/16/2014 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 06/23/2014 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 Location of INR sample : Clinic Lab Lab Type of Sample : Venous Venous INR Result : 1.3 on 06/13 2.4 faxed from lab 2.0 Warfarin Dose : (pt took 2.5mg 06/13) 5mg Sat and 5mg Sun (06/14 and 06/15) 5mg Mon and 2.5mg all other days 5mg Mon and 2.5mg all other days Total Weekly Warfarin Dose : 20 20 Comment : [place] lab called with INR result from 06/13, reported they left a message with Dr. Henriquez and hadn't heard back, spoke with mother, Fabiola, and gave doses, continue Lovenox and repeat INR 06/16, message left with INR clinic in to contact CF Please contact [facility] on 06/16 for result and may call Fabiola at [phone] with instructions call to Fabiola/will stop Lovenox injections and take noted dose/pt has an appt here in [place] 06/23 so will do lab appt here that day Called to Fabiola/ Hue will be back at [facility] by next draw. will have done on . no changes to meds/diet. Recommend Recheck : Two days One week Two weeks Plan completed by : WALI Steven LM, RN - 02/26/2015 10:04 CDT WALI MCCLELLAN RN - 02/26/2015 10:04 CDT WALI MCCLELLAN RN - 02/26/2015 10:04 CDT WALI MCCLELLAN RN - 02/26/2015 10:04 CDT Date : 07/10/2014 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 07/17/2014 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 07/31/2014 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 09/11/2014 CDT Location of INR sample : [...] 20 20 20 Comment : called to Fabiloa/Mom Called to Fabiola/Mom. No changes. called to Mom/Fabiola/No changes LMTC with changes for Fabiola/mom. Left orders on home machine. Letter sent via POS. Recommend Recheck : One week Two weeks Three weeks Two weeks Plan completed by : WALI Yarbrough RN - 02/26/2015 10:04 CDT WALI MCCLELLAN RN - 02/26/2015 10:04 PATRICIAT WALI MCCLELLAN RN - 02/26/2015 10:04 WALI GALINDO RN - 02/26/2015 10:04 CDT Date : 09/12/2014 CDT 09/25/2014 CDT [...] completed by : WALI Almaguer RN - 02/26/2015 10:04 CDT WALI MCCLELLAN RN - 02/26/2015 10:04 WALI GALINDO RN - 02/26/2015 10:04 CDT WALI MCCLELLAN RN - 02/26/2015 10:04 CDT Date : 10/23/2014 CDT 11/13/2014 CDT [...] change is she is exercising alot for [employer]me/no bleeding/consult with Quintin/Pharmacy and called Mom with orders Per Meredith Hernandez, no changes, has been drinking some Kiwi Juice, no bleeding/consult with Quintin/Pharmacy Called to mom /Fabiola, no changes, [facility] Recommend Recheck : Three weeks One week One week One week Plan completed by : WALI Skinner RN - 02/26/2015 10:04 CDT WALI MCCLELLAN RN - 02/26/2015 10:04 CDT WALI MCCLELLAN RN - 02/26/2015 10:04 CDT WALI MCCLELLAN RN - 02/26/2015 10:04 CDT Date : 12/04/2014 CDT 12/18/2014 CDT [...] completed by : WALI Cabrera RN - 02/26/2015 10:04 CDT WALI MCCLELLAN RN - 02/26/2015 10:04 CDT WALI MCCLELLAN RN - 02/26/2015 10:04 CDT WALI MCCLELLAN RN - 02/26/2015 10:04 CDT Date : 02/05/2015 CDT 02/26/2015 CDT Location of INR sample : Lab Lab Type of Sample : Venous Venous INR Result : 2.6 3.8 Warfarin Dose : 5mg Mon and Thurs and 2.5mg all other days Hold 02/26, then 5mg Mon & Thurs, 2.5mgall other days Total Weekly Warfarin Dose : 22.5 22.5 Comment : Called to Mom/Fabiola,no changes Called to Mom/Fabiola, had period last wk & took some Midol, no other changes/bleeding Recommend Recheck : Other: 02/26/15 One week Plan completed by : WALI TIDWELL RN - 02/26/2015 10:04 CDT WALI MCCLELLAN RN - 02/26/2015 10:04 CDT Anticoagulation Assessment / History Visit : Phone management Plan of Care Date : 01/29/2008 CDT Primary Physician Anticoagulation : TASHA HENRIQUEZ MD 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 - 02/26/2015 9:51 AM CDT Results Notification Document Contains Addenda Addendum by WALI MCCLELLAN RN on 26 February 2015 10:12:14 CDT Orders called to Mom/Fabiola. From: KHADAR BANDA RN ( Anticoagulation Nurse) To: Anticoagulation Nurse; Sent: 02/26/2015 09:51:52 CDT Show up: 02/26/2015 09:52:00 CDT Subject: Results Notification Results: Date Result Name Value Ref Range 02/26/2015 08:00 PT 45.4 second(s) 02/26/2015 08:00 INR 3.8 INR (0.8 - 1.1) Source: [facility] [employer] Document Id: [id number] Electronically signed by Lay [facility] Accommodation Support Worker [id number] at 11/21/2016 7:46 PM CDT documented in this encounter Plan of Treatment Not on filedocumented as of this encounter Procedures Procedure Name Priority Date/Time Associated Comments Diagnosis PROTHROMBIN TIME Routine 02/26/2015 8:00 AM Resul ts for this (PT), P CDT procedure are i n the results section. documented in this encounter Results (ABNORMAL) PT (Prothrombin Time) with INR (02/26/2015 8:00 AM CDT) [facility] Method Time Signature Prothrombin 45.4 SECONDS POWERCHART Time, P INR 3.8 (H) 0.8 - 1.1 POWERCHART INR Comment: Recommended INR for prophylaxis/treatmen t of Venous Thrombosis, Pulmonary Embolism, Myocardial Infarction, and Embolism from Atrial Fibrillation is 2.0- 3.0 (Standard Therapy) Recommended INR for Mechanical Heart Tejal ves and recurrent Systemic Embolism is 2.5-3.5 (Intensive Therapy) Specimen (Source) Anatomical Collection Method Collection Time Re ceived Time Location / / Volume Laterality Blood 02/26/2015 8:00 AM CDT Tasha Henriquez M.D. LAB BLOOD ADD-ON Performing Organization Address City/State/ZIP Code Phon e Number POWERCHART documented in this encounter Visit Diagnoses Not on filedocumented in this encounter
--- OUTSIDE RECORDS SUMMARY | 2022-04-25 16:02 | XMS_ITS | Encounter Summary ---
:1975 Author Organization [facility] Address [address] [place] [id number] Care Team Providers Name Role Phone Unavailable Primary Care Provider Unavailable Encounter Details Date Type Department Care Team Description 02/05/[address] [facility] Marsha Henriquez M.D. [address] [place], [place] [address] (Wo rk) Social History [...] - - Height 147 cm (4' 9.87) 02/05/2015 6:41 AM CDT Body Mass Index - - documented in this encounter Medications at Time of Discharge Medication Sig Dispensed Refills Start Date End Date multivitamin tablet Take 2 tablets by 0 3 mouth daily. FLUORIDE, SODIUM, Apply 1 application 0 3 12/31/2019 DENTAL topically 2 (two) times a day. documented as of this encounter Miscellaneous Notes Miscellaneous - Meli Campo, RMichaelN. - 02/05/2015 11:01 AM CDT Anticoagulation Patient Intake Anticoagulation Patient Intake Entered On: 02/05/2015 11:01 CDT Performed On: 02/05/2015 11:01 CDT by MELI CAMPO RN Plan INR goal range : 2.0 - 3.0 Duration of Therapy : Lifelong Tablet Size : 5 mg MELI CAMPO RN - 02/05/2015 11:01 CDT Anticoagulation Management Plan Grid Date : [...] weeks Plan completed by : darya BURGESS MELI Carroll RN - 02/05/2015 11:01 CDT MELI CAMPO RN - 02/05/2015 11:01 CDT MELI CAMPON - 02/05/2015 11:01 CDT MELI CAMPO RN - 02/05/2015 11:01 CDT Date : 12/26/2013 CDT 01/30/2014 CDT [...] completed by : MELI Pradhan RN - 02/05/2015 11:01 CDT MELI CAMPO RN - 02/05/2015 11:01 CDT MELI CAMPO - 02/05/2015 11:01 CDT MELI CAMPO RN - 02/05/2015 11:01 CDT Date : 03/20/2014 CDT 03/27/2014 CDT [...] Other: Plan completed by : darya lackey [facility]/pharmacy MELI CAMPO RN - 02/05/2015 11:01 CDT MELI CAMPO RN - 02/05/2015 11:01 CDT MELI CAMPO - 02/05/2015 11:01 CDT MELI CAMPO RN - 02/05/2015 11:01 CDT Date : 04/17/2014 CDT 04/24/2014 CDT 05/01/2014 TECHNOLOGY TRAINER 05/15/2014 TECHNOLOGY TRAINER Location of INR sample : Lab Lab [...] will trynoted dose called to mom Fabiola [phone] called to Fabiola/no changes Called to mother/Fabiola, not awareof any changes Recommend Recheck : One week One week Two weeks Two weeks Plan completed by : MELI LEON RN - 02/05/2015 11:01 CDMELI CHERRY RN - 02/05/2015 11:01 CDT MELI CAMPO - 02/05/2015 11:01 CDMELI CHERRY RN - 02/05/2015 11:01 CDT Date : 06/03/2014 TECHNOLOGY TRAINER 06/05/2014 TECHNOLOGY TRAINER 06/10/2014 TECHNOLOGY TRAINER 06/11/2014 TECHNOLOGY TRAINER Location of INR sample : Lab Type [...] Fabiola granados. Hue will be staying in [place] 2wks post-surgery & have INR drawn there. [...] completed by : MELI ROSADO RN - 02/05/2015 11:01 MELI ESQUIVEL RN - 02/05/2015 11:01 MELI ESQUIVEL - 02/05/2015 11:01 MELI ESQUIVEL RN - 02/05/2015 11:01 CDT Date : 06/14/2014 TECHNOLOGY TRAINER 06/14/2014 TECHNOLOGY TRAINER 06/16/2014 TECHNOLOGY TRAINER 06/23/2014 TECHNOLOGY TRAINER Location of INR sample : Clinic Lab Lab Type of Sample : Venous Venous INR Result : 1.3 on 06/13 2.4 faxed from lab 2.0 Warfarin Dose : (pt took 2.5mg 06/13) 5mg Sat and 5mg Sun (06/14 and 06/15) 5mg Mon and 2.5mg all other days 5mg Mon and 2.5mg all other days Total Weekly Warfarin Dose : 20 20 Comment : [place] lab called with INR result from 06/13, reported they left a message with Dr. Henriquez and hadn't heard back, spoke with mother, Fabiola, and gave doses, continue Lovenox and repeat INR 06/16, message left with INR clinic in to contact CF Please contact [place] lab on 06/16 for result and may call Fabiola at [phone] with instructions call to Fabiola/will stop Lovenox injections and take noted dose/pt has an appt here in 06/23 so will do lab appt here that day Called to Fabiola/ Hue will be back at [facility] by next draw. will have done on . no changes to meds/diet. Recommend Recheck : Two days One week Two weeks Plan completed by : MELI Vazquez LM, RN - 02/05/2015 11:01 MELI ESQUIVEL RN - 02/05/2015 11:01 PATRICIAT MELI CAMPO - 02/05/2015 11:01 MELI ESQUIVEL RN - 02/05/2015 11:01 CDT Date : 07/10/2014 TECHNOLOGY TRAINER 07/17/2014 TECHNOLOGY TRAINER 07/31/2014 TECHNOLOGY TRAINER 09/11/2014 CDT Location of INR sample : [...] completed by : MELI Rubi RN - 02/05/2015 11:01 CDT MELI CAMPO RN - 02/05/2015 11:01 MELI ESQUIVEL - 02/05/2015 11:01 MELI ESQUIVEL RN - 02/05/2015 11:01 CDT Date : 09/12/2014 CDT 09/25/2014 CDT [...] completed by : MELI Owen RN - 02/05/2015 11:01 CDT MELI CAMPO RN - 02/05/2015 11:01 MELI ESQUIVEL - 02/05/2015 11:01 MELI ESQUIVEL RN - 02/05/2015 11:01 CDT Date : 10/23/2014 CDT 11/13/2014 CDT [...] change is she is exercising alot for [employer]/no bleeding/consult with Quintin/Pharmacy and called Mom with orders Per Meredith Hernandez, no changes, has been drinking some Kiwi Juice, no bleeding/consult with Quintin/Pharmacy Called to mom /Fabiola, no changes, rev'd w/[facility]/Pharmacy Recommend Recheck : Three weeks One week One week One week Plan completed by : MELI Bailey RN - 02/05/2015 11:01 CDT MELI CAMPO RN - 02/05/2015 11:01 CDT MELI CAMPO - 02/05/2015 11:01 CDT MELI CAMPO RN - 02/05/2015 11:01 CDT Date : 12/04/2014 CDT 12/18/2014 CDT [...] completed by : MELI Shirley RN - 02/05/2015 11:01 CDT MELI CAMPO RN - 02/05/2015 11:01 CDT MELI CAMPO - 02/05/2015 11:01 CDT MELI CAMPO RN - 02/05/2015 11:01 CDT Date : 02/05/2015 CDT Location of INR sample : Lab Type of Sample : Venous INR Result : 2.6 Warfarin Dose : 5mg Mon and Thurs and 2.5mg all other days Total Weekly Warfarin Dose : 22.5 Comment : Called to Mom/Fabiola,no changes Recommend Recheck : Other: 02/26/15 Plan completed by : MELI WINTER RN - 02/05/2015 11:01 CDT Anticoagulation Assessment / History Visit : Phone management Plan of Care Date : 01/29/2008 CDT Primary Physician Anticoagulation : TASHA HENRIQUEZ MD 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 - 02/05/2015 10:02 AM CDT Results Notification Document Contains Addenda Addendum by MELI CAMPO RN on 05 February 2015 11:02:30 CDT called to mom From: MELI CAMPO RN ( Anticoagulation Nurse) To: Anticoagulation Nurse; Sent: 02/05/2015 10:02:48 CDT Show up: 02/05/2015 10:03:00 CDT Subject: Results Notification Results: Date Result Name Value Ref Range 02/05/2015 08:00 PT 28.6 second(s) (8.7 - 11.8) 02/05/2015 08:00 INR 2.6 INR (0.9 - 1.1) Source: [facility] POWERCHART Document Id: [id number] Electronically signed by Conversion, [facility] Heating And Cooling Technician [id number] at 11/21/2016 12:50 AM CDT documented in this encounter Plan of Treatment Not on filedocumented as of this encounter Procedures Procedure Name Priority Date/Time Associated Comments Diagnosis PROTHROMBIN TIME Routine 02/05/2015 8:00 AM Resul ts for this (PT), P CDT procedure are i n the results section. documented in this encounter Results (ABNORMAL) PT (Prothrombin Time) with INR (02/05/2015 8:00 AM CDT) [facility] Method Time Signature Prothrombin 28.6 (H) 8.7 - 11.8 POWERCHART Time, P SECONDS INR 2.6 (H) 0.9 - 1.1 POWERCHART INR Comment: Recommended INR for prophylaxis/treatmen t of Venous Thrombosis, Pulmonary Embolism, Myocardial Infarction, and Embolism from Atrial Fibrillation is 2.0- 3.0 (Standard Therapy) Recommended INR for Mechanical Heart Tejal ves and recurrent Systemic Embolism is 2.5-3.5 (Intensive Therapy) Specimen (Source) Anatomical Collection Method Collection Time Re ceived Time Location / / Volume Laterality Blood 02/05/2015 8:00 AM CDT Tasha Henriquez M.D. LAB BLOOD ADD-ON Performing Organization Address City/State/ZIP Code Phon e Number POWERCHART documented in this encounter Visit Diagnoses Not on filedocumented in this encounter
--- OUTSIDE RECORDS SUMMARY | 2022-04-25 16:02 | XMS_ITS | Encounter Summary ---
:1975 Author Organization [facility] Address [address] [place] [address] Care Team Providers Name Role Phone Unavailable Primary Care Provider Unavailable Encounter Details Date Type Department Care Team Description 07/09/2015 Hospital Encounter [facility] PODIATRY Lamar Suarez D.PMichaelM. [address] [place] [phone] (Wo rk) Social History Tobacco Use Types [...] - - Height 147 cm (4' 9.87) 07/09/2015 3:22 PM PATTERN DRAFTER Body Mass Index - - documented in this encounter Medications at Time of Discharge Medication Sig Dispensed Refills Start Date End Date multivitamin tablet Take 2 tablets by 0 3 mouth daily. FLUORIDE, SODIUM, Apply 1 application 0 3 12/31/2019 DENTAL topically 2 (two) times a day. documented as of this encounter Progress Notes Lamar Oneill D.PMichaelM. - 07/09/2015 4:13 PM CST Clinic Full Note CHIEF COMPLAINT/REASON FOR VISIT left foot fasciitis/heel pain HISTORY OF PRESENT ILLNESS This patient is 40 years old and presents today for a medical visit. This patient has the followingissues to go over: left heel pain. She has noted pain to her left heel since after [place] (3-4 weeks). MEDICATIONS multivitamin, 1 tab, PO, Daily NEW MED, See Instructions, Rx mouth wash - daily Prevident 5000 Plus topical paste, 1 luther, Topical, 2xDay warfarin 1 mg oral tablet, See Instructions, 5mg Mon & Thurs, 2.5mg all other days or as directed per INR Clinic as of 05/07/15, * warfarin 5 mg oral tablet, See Instructions, 5mg Mon & Thurs, 2.5mg all other days or as directed by the INR Clinic as of 05/07/15, 1 refills * indicates non-compliance ALLERGIES Bee Stings chloramphenicol containing compounds quinolone antibiotics PAST MEDICAL HISTORY Chronic Gallstone Without Obstruction Impaired Fasting Glucose Irregular Menstrual Cycle Mixed Hyperlipidemia Phlebitis and Thrombophlebitis of Other Deep Vessels of Lower Extremities Primary Hypercoagulable State Historical No historical problems PROCEDURES/SURGICAL HISTORY Laparoscopic cholecystectomy (06/11/2014), AV - Atrioventricular valve operation (03/29/2013), Colonoscopy (12/04/2012), Papanicolaou smear taken (07/19/2010), I and D, left thigh & leg (01/15/2000). SOCIAL HISTORY No Data Available FAMILY HISTORY Aunt (Maternal):Positive: CA - Breast cancer; Thyroid dysfunction Uncle (Maternal):Positive: Aneurysm Aunt (maternal):Positive: Thyroid dysfunction SYSTEMS REVIEW GENERAL: no weight gain, no weight loss, no fever in past month, no chills, no sweats, no fatigue CARDIAC: dependent edema, no pain in calves or with walking, no difficulty moving arms and legs MUSCULOSKELETAL: no joint pain, no joint swelling, no joint stiffness, no muscle pain, no muscle stiffness SKIN: no skin rashes, no skin sores, no change in moles NEURO: no dizziness, no burning or tingling sensation to extremities, no numbness to extremities VITAL SIGNS HT: 147 cm PHYSICAL EXAMINATION Lower Extremity Physical Exam: Musculoskeletal: Point tender medial band insertion left plantar fascia. Pronation L>R. Bunion right foot. Hallux varus left foot. Motor strength normal and symmetric graded at 5+. No gross deformities or dislocations. Rectus foot structure. Gait- normal, including tandem walk, heel and toe walk. Neurological: Sensory exam is within normal limits. Light touch is not diminished. Sensation is negative for loss of protective threshold. Coordination within normal limits. Patient is able to follow tasks as directed. Dermatological: Lower extremity: Skin evaluation: venous stasis with brawny, atrophic skin changes,hemosiderin staining. Dry plaques to side or right foot. Clayton right 5th toe Vascular: Pedal dorsal pulse normal; posterior pulse normal. Temperature proximal to distal warm towarm. Pitting edema to legs. IMPRESSION/REPORT/PLAN Fasciitis Plantar Ordered: OV New Pt Level 2 - 83239 - 20 min Pain Heel L Ordered: OV New Pt Level 2 - 03779 - 20 min Discussed with patient and guardians clinical findings and symptoms. Dorita has clinical findings for plantar fasciitis. She is fitted with Lynco inserts and night splint and these are dispensed today. Hand out provided about home icing and stretching. Assessment will be ongoing with changes in treatment as indicated. Follow with podiatry as needed. All questions are answered. Electronically Signed By: LAMAR ONEILL DPM On: 07/09/2015 04:15 PM Source: [email or web address] Document Id: [id number] ERN DRAFTER documented in this encounter Nursing Notes Lamar Oneill, D.P.M. - 07/09/2015 4:08 PM CST Ambulatory Patient Education The following Patient Education Materials have been given to the patient: Patient Education Materials: Ambulatory PLANTAR FASCIITIS Ambulatory Plantar Fasciitis The plantar fascia is a thick fibrous layer of tissue that covers the bones on the bottom of your foot. It supports the foot bones in an arched position. Plantar fasciitis is a painful inflammation of the plantar fascia. This can develop gradually or suddenly. It usually affects one foot at a time. Heel pain can be sharp and feel like a knife sticking in the bottom of your foot. Pain may occur after exercising, long distance jogging, stair climbing, long periods of standing, or after getting up froma seated position. Risk factors include arthritis, diabetes, obesity or recent weight gain, flat- foot, high arch, wearing high heels or loose shoes or shoes with a poor arch support. Foot pain from this condition is usually worse in the morning and improves with walking. By the end of the day there may be a dull aching. Treatment requires short-term rest and controlling inflammation. It may take up to nine months before all symptoms go away with the measures described below. Rarely, a steroid injection into the foot or surgery may be needed. Home Care If you are overweight, lose weight to promote healing. Choose supportive shoes with good arch support and shock absorbency. Replace athletic shoes when they become worn out. Dont walk or run barefoot. Shoe inserts are an important part of treatment. These will provide optimal arch support. While you can buy znp-qsf-fcgel shoe inserts inexpensively, the best ones are those made for you by a president sales and marketing (consumer insights specialist). Night splints (provided by a president sales and marketing) keep the heel stretched out while you sleep and prevent morning pain. Avoid activities that stress the feet: jogging, prolonged standing or walking, contact sports, etc. First thing in the morning and before sports, stretch the bottom of your feet. Gently flex your ankle so the foot moves toward your knee. Icing may help control heel pain. Apply an ice pack (ice cubes in a plastic bag, wrapped in a towel)to the heel for 10-20 minutes as a preventive or after an acute flare of symptoms. You may repeat this every 1-2 hours as needed. You may use acetaminophen (Tylenol) or ibuprofen (Motrin, Advil) to control pain, unless another medicine was prescribed. [NOTE: If you have chronic liver or kidney disease or ever had a stomach ulcer or GI bleeding, talk with your doctor before using these medicines.] Follow Up with your doctor or a president sales and marketing (consumer insights specialist) as advised by our staff. Call for an appointment if pain worsens or there is no relief after a few weeks of home treatment. Shoe inserts, a night splint or a special boot may be required. [NOTE: If x-rays were taken, they will be reviewed by a radiologist. You will be notified of any newfindings that may affect your care.] Return Promptly or contact your physician if any of the following occurs: ?? Foot swelling or redness with increasing pain ?? [phone] [facility], [address] [place] [address], [place] [address]. All rights reserved. This information is not intended as a substitute for professional medical care. Always follow your healthcare professional's instructions. Source: [facility] POWERCHART Document Id: [id number] ERN DRAFTER documented in this encounter Miscellaneous Notes Miscellaneous - Lamar Oneill D.P.M. - 07/09/2015 4:16 PM PATTERN DRAFTER Ambulatory Patient Summary [facility] [address], [address] [place], [place] [id number] Visit Information Name: DORITA SHEFFIELD [facility] Number: [id number] Current Date: 07/09/2015 16:16:13 Physicians Attending Provider: LAMAR ONEILL DPM Primary Care Provider: TASHA HENRIQUEZ MD DORITA [...] Take Indications/Special Instructions/Comments/Notes for Patient Medication Changes/Routing fluoride topical (Prevident 5000 Plus topical paste) 1 luther, Topical, two times a day Misc Prescription (NEW MED) See Instructions Rx mouth wash - daily multivitamin (multivitamin) 1 tab, Oral, once a day warfarin (warfarin 5 mg oral tablet) See Instructions 5mg Mon & Thurs, 2.5mg all other days or as directed by the INR Clinic as of 05/07/15 This is a CHANGE Stop Taking the Following Medications: warfarin (warfarin 1 mg oral tablet) Medication list as of 07-09-15 16:16 Attention: If you have any medications at home that are not on this list, DO NOT take them until youcontact your provider for clarification. Give a copy of your medication list to your primary care provider. Update your medication list any time medications or doses are changed and carry your medication list at all times in case of emergency. Electronically Signed By: LAMAR ONEILL DPM Signed On:09-JUL-2015 16:16:06 Your Allergies & Intolerances Substance Reaction Symptoms [...] 09/21/13 Irregular menses Gallstone Without Obstruction Active Your Upcoming Appointments Date Time Location Provider 08/06/2015 08:00 [facility] Offsite Attention: Contact your local Clinic if further appointment detail needed. Plantar Fasciitis The plantar fascia is a thick fibrous layer of tissue that covers the bones on the bottom of your foot. It supports the foot bones in an arched position. Plantar fasciitis is a painful inflammation of the plantar fascia. This can develop gradually or suddenly. It usually affects one foot at a time. Heel pain can be sharp and feel like a knife sticking in the bottom of your foot. Pain may occur after exercising, long distance jogging, stair climbing, long periods of standing, or after getting up froma seated position. Risk factors include arthritis, diabetes, obesity or recent weight gain, flat- foot, high arch, wearing high heels or loose shoes or shoes with a poor arch support. Foot pain from this condition is usually worse in the morning and improves with walking. By the end of the day there may be a dull aching. Treatment requires short-term rest and controlling inflammation. It may take up to nine months before all symptoms go away with the measures described below. Rarely, a steroid injection into the foot or surgery may be needed. Home Care If you are overweight, lose weight to promote healing. Choose supportive shoes with good arch support and shock absorbency. Replace athletic shoes when they become worn out. Dont walk or run barefoot. Shoe inserts are an important part of treatment. These will provide optimal arch support. While you can buy vlp-flu-ofcdy shoe inserts inexpensively, the best ones are those made for you by a president sales and marketing (consumer insights specialist). Night splints (provided by a president sales and marketing) keep the heel stretched out while you sleep and prevent morning pain. Avoid activities that stress the feet: jogging, prolonged standing or walking, contact sports, etc. First thing in the morning and before sports, stretch the bottom of your feet. Gently flex your ankle so the foot moves toward your knee. Icing may help control heel pain. Apply an ice pack (ice cubes in a plastic bag, wrapped in a towel)to the heel for 10-20 minutes as a preventive or after an acute flare of symptoms. You may repeat this every 1-2 hours as needed. You may use acetaminophen (Tylenol) or ibuprofen (Motrin, Advil) to control pain, unless another medicine was prescribed. [NOTE: If you have chronic liver or kidney disease or ever had a stomach ulcer or GI bleeding, talk with your doctor before using these medicines.] Follow Up with your doctor or a president sales and marketing (consumer insights specialist) as advised by our staff. Call for an appointment if pain worsens or there is no relief after a few weeks of home treatment. Shoe inserts, a night splint or a special boot may be required. [NOTE: If x-rays were taken, they will be reviewed by a radiologist. You will be notified of any newfindings that may affect your care.] Return Promptly or contact your physician if any of the following occurs: ?? Foot swelling or redness with increasing pain ?? [phone] [facility], [address] [place] [address], [place] [address]. All rights reserved. This information is not [...] if you dont have one. Go to [email or web address] and click on Create Your Account. Then, follow the directions to complete the online form. Youll be asked for your [facility] number which you can find at the top of this document. Your Goals/Additional instructions: Source: [facility] POWERCHART Document Id: [id number] ERN DRAFTER Miscellaneous - Lamar Oneill D.P.M. - 07/09/2015 4:16 PM PATTERN DRAFTER Ambulatory Discharge Medication List [facility] [address], [address] [place], [place] [phone] Visit Information Name: DORITA SHEFFIELD [facility] Number: [id number] Visit Date: 07/09/2015 16:16:11 Attending Provider: LAMAR ONEILL DPJuan Primary Care Provider: TASHA HENRIQUEZ MD DORITA [...] Take Indications/Special Instructions/Comments/Notes for Patient Medication Changes/Routing fluoride topical (Prevident 5000 Plus topical paste) 1 luther, Topical, two times a day Misc Prescription (NEW MED) See Instructions Rx mouth wash - daily multivitamin (multivitamin) 1 tab, Oral, once a day warfarin (warfarin 5 mg oral tablet) See Instructions 5mg Mon & Thurs, 2.5mg all other days or as directed by the INR Clinic as of 05/07/15 This is a CHANGE Stop Taking the Following Medications: warfarin (warfarin 1 mg oral tablet) Medication list as of 07-09-15 16:16 Attention: If you have any medications at home that are not on this list, DO NOT take them until youcontact your provider for clarification. Give a copy of your medication list to your primary care provider. Update your medication list any time medications or doses are changed and carry your medication list at all times in case of emergency. Electronically Signed By: LAMAR ONEILL DPM Signed On:09-JUL-2015 16:16:06 Additional Information: Source: [facility] Document Id: [id number] ERN DRAFTER Miscellaneous - Kell Roy C.M.A. - 07/09/2015 3:22 PM CST Adult Mixer Helper Intake/History Adult Mixer Helper Intake/History Entered On: 07/09/2015 15:25 PATTERN DRAFTER Performed On: 07/09/2015 15:22 PATTERN DRAFTER by KELL ROY Intake Chief Complaint : left foot fasciitis/heel pain Height : 147 cm(Converted to: 4 ft 10 inch(es), 58 inch(es)) KELL ROY - 07/09/2015 15:22 PATTERN DRAFTER General Info Information Given By : Patient Languages : Georgian Is Patient Female and 13-50 no hysterectomy : Yes Status : Patient denies Are you ? : No KELL ROY - 07/09/2015 15:22 PATTERN DRAFTER Subjective Pain Symptoms : Yes KELL ROY - 07/09/2015 15:22 PATTERN DRAFTER Pain Scale Pain Scale Verbal 0-10 : Open KELL ROY - 07/09/2015 15:22 PATTERN DRAFTER Pain Pain Assessment Grid Pain 1 Intensity : 8 Comment : end of work day KELL ROY - 07/09/2015 15:22 PATTERN DRAFTER Dependent Habits Exposure to Tobacco Smoke : Other: never smoker Smoking Status : Never smoker Tobacco 2A : No Tobacco Use/Currently Using : No Tobacco Use/Last 30 Days : No Tobacco Use/Last 12 months : No KELL ROY - 07/09/2015 15:22 PATTERN DRAFTER Source: [facility] ServiceCHART Document Id: [id number] PATTERN DRAFTER!26 ERN DRAFTER documented in this encounter Plan of Treatment Not on filedocumented as of this encounter Visit Diagnoses Not on filedocumented in this encounter
--- OUTSIDE RECORDS SUMMARY | 2022-04-25 16:02 | XMS_ITS | Encounter Summary ---
:1975 Author Organization [facility] Address [address] [place] [address] Care Team Providers Name Role Phone Unavailable Primary Care Provider Unavailable Encounter Details Date Type Department Care Team Description 11/20/2014 Hospital Encounter HX [facility] Marsha Henriquez M.D. [address] [place], [place] [address] (Wo rk) Social History [...] - - Height 147 cm (4' 9.87) 11/20/2014 7:50 AM CDT Body Mass Index - - documented in this encounter Medications at Time of Discharge Medication Sig Dispensed Refills Start Date End Date multivitamin tablet Take 2 tablets by 0 3 mouth daily. FLUORIDE, SODIUM, Apply 1 application 0 3 12/31/2019 DENTAL topically 2 (two) times a day. documented as of this encounter Miscellaneous Notes Miscellaneous - Khadar Banda, RMichaelN. - 11/20/2014 10:11 AM CDT Anticoagulation Patient Intake Anticoagulation Patient Intake Entered On: 11/20/2014 10:15 CDT Performed On: 11/20/2014 10:11 CDT by KHADAR BANDA RN Plan INR goal range : 2.0 - 3.0 Duration of Therapy : Lifelong Tablet Size : 5 mg KHADAR BANDA RN - 11/20/2014 10:11 CDT KHADAR BANDA RN - 11/20/2014 10:11 CDT Anticoagulation Management Plan Grid Date : [...] darya BURGESS JM KHADAR Mae RN - 11/20/2014 10:11 KHADAR HILL RN - 11/20/2014 10:11 CDT KHADAR BANDA RN - 11/20/2014 10:11 CDT KHADAR BANDA RN - 11/20/2014 10:11 CDT Date : 12/26/2013 CDT 01/30/2014 CDT [...] 03/20/14 Plan completed by : PATRICE lackey NB KHADAR BANDA RN - 11/20/2014 10:11 CDT KHADAR BANDA RN - 11/20/2014 10:11 CDT KHADAR BANDA RN - 11/20/2014 10:11 CDT KHADAR BANDA RN - 11/20/2014 10:11 CDT Date : 03/20/2014 CDT 03/27/2014 CDT [...] Other: Plan completed by : darya lackey [facility]/pharmacy KHADAR BANDA RN - 11/20/2014 10:11 CDT KHADAR BANDA RN - 11/20/2014 10:11 CDT KHADAR BANDA RN - 11/20/2014 10:11 CDT KHADAR BANDA RN - 11/20/2014 10:11 CDT Date : 04/17/2014 CDT 04/24/2014 CDT 05/01/2014 COMPRESSOR ASSEMBLER 05/15/2014 COMPRESSOR ASSEMBLER Location of INR sample : Lab Lab [...] will trynoted dose called to mom Fabiola [phone] called to Fabiola/no changes Called to mother/Fabiola, not awareof any changes Recommend Recheck : One week One week Two weeks Two weeks Plan completed by : KHADAR HACKETT RN - 11/20/2014 10:11 CDT KHADAR BANDA RN - 11/20/2014 10:11 CDT KHADAR BANDA RN - 11/20/2014 10:11 CDT KHADAR BANDA RN - 11/20/2014 10:11 CDT Date : 06/03/2014 COMPRESSOR ASSEMBLER 06/05/2014 COMPRESSOR ASSEMBLER 06/10/2014 COMPRESSOR ASSEMBLER 06/11/2014 COMPRESSOR ASSEMBLER Location of INR sample : Lab Type [...] Fabiola granados. Hue will be staying in [place] 2wks post-surgery & have INR drawn there. [...] lovenox tomorrow AM as ordered. INR in [place] for next several weeks as pt will be recovering there. Recommend Recheck : Other: depending on Dr. Henriquez's preop. Other: 06/18 Other: 06/13/14 Plan completed by : KHADAR SANDERS RN - 11/20/2014 10:11 CDT KHADAR BANDA RN - 11/20/2014 10:11 CDT KHADAR BANDA RN - 11/20/2014 10:11 CDT KHADAR BANDA RN - 11/20/2014 10:11 CDT Date : 06/14/2014 COMPRESSOR ASSEMBLER 06/14/2014 COMPRESSOR ASSEMBLER 06/16/2014 COMPRESSOR ASSEMBLER 06/23/2014 COMPRESSOR ASSEMBLER Location of INR sample : Clinic Lab Lab Type of Sample : Venous Venous INR Result : 1.3 on 06/13 2.4 faxed from lab 2.0 Warfarin Dose : (pt took 2.5mg 06/13) 5mg Sat and 5mg Sun (06/14 and 06/15) 5mg Mon and 2.5mg all other days 5mg Mon and 2.5mg all other days Total Weekly Warfarin Dose : 20 20 Comment : [facility] called with INR result from 06/13, reported they left a message with Dr. Henriquez and hadn't heard back, spoke with mother, Fabiola, and gave doses, continue Lovenox and repeat INR 06/16, message left with INR clinic in to contact CF Please contact [facility] lab on 06/16 for result and may call Fabiola at [phone] with instructions call to Fabiola/will stop Lovenox injections and take noted dose/pt has an appt here in [place] 06/23 so will do lab appt here that day Called to Fabiola/ Hue will be back at [facility] by next draw. will have done on . no changes to meds/diet. Recommend Recheck : Two days One week Two weeks Plan completed by : latasha OZZY KHADAR VILLAFUERTE RN - 11/20/2014 10:11 CDT KHADAR BANDA RN - 11/20/2014 10:11 CDT KHADAR BANDA RN - 11/20/2014 10:11 CDT KHADAR BANDA RN - 11/20/2014 10:11 CDT Date : 07/10/2014 COMPRESSOR ASSEMBLER 07/17/2014 COMPRESSOR ASSEMBLER 07/31/2014 COMPRESSOR ASSEMBLER 09/11/2014 CDT Location of INR sample : [...] Plan completed by : darya WYLIE ly KHADAR GUSTAFSON RN - 11/20/2014 10:11 CDT KHADAR BANDA RN - 11/20/2014 10:11 CDT KHADAR BANDA RN - 11/20/2014 10:11 CDT KHADAR BANDA RN - 11/20/2014 10:11 CDT Date : 09/12/2014 CDT 09/25/2014 CDT [...] call mom on cell phone # per Mom/noccoco or missed doses Called to Mom/Fabiola, no changes, rev'd w/[facility]/Pharmacy called to Mom/Fabiola, no changes Recommend Recheck : Two weeks One week One week Two weeks Plan completed by : MARIA GUADALUPE lackey JM KHADAR Mae RN - 11/20/2014 10:11 CDT KHADAR BANDA RN - 11/20/2014 10:11 CDT KHADAR BANDA RN - 11/20/2014 10:11 CDT KHADAR BANDA RN - 11/20/2014 10:11 CDT Date : 10/23/2014 CDT 11/13/2014 CDT 11/20/2014 CDT Location of INR sample : Lab Lab Lab Type of Sample : Venous Venous Venous INR Result : 2.6 5.1 4.5 Warfarin Dose : 5mg Tues/Thurs/Sat, 2.5mg all other days HOLD 11/13, then 5mg Tues/Sat, 2.5mg all other days HOLD 11/20, Then 2.5mg daily until recheck Total Weekly Warfarin Dose : 25 Comment : called to Mom/Fabiola, no changes called to Fabiola Hernandez, only change is she is 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 [employer]/no bleeding/consult with Quintin/Pharmacy and called Mom with orders Per Meredith Hernandez, no changes, has been drinking some Kiwi Juice, no bleeding/consult with Quintin/Pharmacy Recommend Recheck : Three weeks One week One week Plan completed by : KHADAR Vázquez RN - 11/20/2014 10:11 CDT KHADAR BANDA RN - 11/20/2014 10:11 CDT KHADAR ABNDA RN - 11/20/2014 13:48 CDT Anticoagulation Assessment / History Visit : Phone management Plan of Care Date : 01/29/2008 CDT Primary Physician Anticoagulation : TASHA HENRIQUEZ MD 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 - 11/20/2014 9:56 AM CDT Results Notification Document Contains Addenda Addendum by KHADAR BANDA RN on 20 Nov 2014 10:15:53 CDT will consult with pharmacy From: KHADAR BANDA RN ( Anticoagulation Nurse) To: Anticoagulation Nurse; Sent: 11/20/2014 09:56:24 CDT Show up: 11/20/2014 09:57:00 CDT Subject: Results Notification Results: Date Result Name Value Ref Range 11/20/2014 08:07 PT 54.7 second(s) 11/20/2014 08:07 INR 4.5 INR (0.8 - 1.1) Source: [facility] [employer] Document Id: [id number] Electronically signed by Lay, [facility] [employer] Housekeeper [id number] at 11/21/2016 8:59 AM CDT documented in this encounter Plan of Treatment Not on filedocumented as of this encounter Procedures Procedure Name Priority Date/Time Associated Comments Diagnosis PROTHROMBIN TIME Routine 11/20/2014 8:07 AM Resul ts for this (PT), P CDT procedure are i n the results section. documented in this encounter Results (ABNORMAL) PT (Prothrombin Time) with INR (11/20/2014 8:07 AM CDT) [facility] Method Time Signature Prothrombin 54.7 SECONDS POWERCHART Time, P INR 4.5 (H) 0.8 - 1.1 POWERCHART INR Comment: Recommended INR for prophylaxis/treatmen t of Venous Thrombosis, Pulmonary Embolism, Myocardial Infarction, and Embolism from Atrial Fibrillation is 2.0- 3.0 (Standard Therapy) Recommended INR for Mechanical Heart Tejal ves and recurrent Systemic Embolism is 2.5-3.5 (Intensive Therapy) Specimen (Source) Anatomical Collection Method Collection Time Re ceived Time Location / / Volume Laterality Blood 11/20/2014 8:07 AM CDT Tasha Henriquez M.D. LAB BLOOD ADD-ON Performing Organization Address City/State/ZIP Code Phon e Number POWERCHART documented in this encounter Visit Diagnoses Not on filedocumented in this encounter
--- OUTSIDE RECORDS SUMMARY | 2022-04-25 16:02 | XMS_ITS | Encounter Summary ---
:1975 Author Organization [facility] Address [address] [place] [address] Care Team Providers Name Role Phone Unavailable Primary Care Provider Unavailable Encounter Details Date Type Department Care Team Description 03/19/2015 Hospital Encounter HX [facility] Marsha Henriquez M.D. [address] [place], [place] [address] (Wo rk) Social History [...] - - Height 147 cm (4' 9.87) 03/19/2015 7:18 AM CDT Body Mass Index - - documented in this encounter Medications at Time of Discharge Medication Sig Dispensed Refills Start Date End Date multivitamin tablet Take 2 tablets by 0 3 mouth daily. FLUORIDE, SODIUM, Apply 1 application 0 3 12/31/2019 DENTAL topically 2 (two) times a day. documented as of this encounter Miscellaneous Notes Miscellaneous - Wali Mcclellan - 03/19/2015 12:22 PM CDT Anticoagulation Patient Intake Anticoagulation Patient Intake Entered On: 03/19/2015 12:24 CDT Performed On: 03/19/2015 12:22 CDT by WALI MCCLELLAN RN Plan INR goal range : 2.0 - 3.0 Duration of Therapy : Lifelong Tablet Size : 5 mg WALI MCCLELLAN RN - 03/19/2015 12:22 CDT Anticoagulation Management Plan Grid Date : [...] darya BURGESS JM WALI Ervin RN - 03/19/2015 12:22 CDT WALI MCCLELLAN RN - 03/19/2015 12:22 CDT WALI MCCLELLAN RN - 03/19/2015 12:22 CDT WALI MCCLELLAN RN - 03/19/2015 12:22 CDT Date : 12/26/2013 CDT 01/30/2014 CDT [...] a long time, no bleeding now left [facility] for Fabiola,call if changes Recommend Recheck : Other: 5 weeks Other: 5 weeks Other: 03/10/2014 Other: 03/20/14 Plan completed by : WALI Davidson RN - 03/19/2015 12:22 CDT WALI MCCLELLAN RN - 03/19/2015 12:22 CDT WALI MCCLELLAN RN - 03/19/2015 12:22 CDT WALI MCCLELLAN RN - 03/19/2015 12:22 CDT Date : 03/20/2014 CDT 03/27/2014 CDT [...] [facility]/pharmacy WALI MCCLELLAN RN - 03/19/2015 12:22 CDT WALI MCCLELLAN RN - 03/19/2015 12:22 CDT WALI MCCLELLAN RN - 03/19/2015 12:22 CDT WALI MCCLELLAN RN - 03/19/2015 12:22 CDT Date : 04/17/2014 CDT 04/24/2014 CDT 05/01/2014 LINEN TECH 05/15/2014 LINEN TECH Location of INR sample : Lab Lab [...] will trynoted dose called to mom Fabiola [phone] called to Fabiola/no changes Called to mother/Fabiola, not awareof any changes Recommend Recheck : One week One week Two weeks Two weeks Plan completed by : WALI CHOI RN - 03/19/2015 12:22 CDT WALI MCCLELLAN RN - 03/19/2015 12:22 CDT WALI MCCLELLAN RN - 03/19/2015 12:22 CDT WALI MCCLELLAN RN - 03/19/2015 12:22 CDT Date : 06/03/2014 LINEN TECH 06/05/2014 LINEN TECH 06/10/2014 LINEN TECH 06/11/2014 LINEN TECH Location of INR sample : Lab Type [...] Fabiola granados. Hue will be staying in [place] 2wks post-surgery & have INR drawn there. [...] completed by : WALI TYLER RN - 03/19/2015 12:22 CDT WALI MCCLELLAN RN - 03/19/2015 12:22 CDT WALI MCCLELLAN RN - 03/19/2015 12:22 CDT WALI MCCLELLAN RN - 03/19/2015 12:22 CDT Date : 06/14/2014 LINEN TECH 06/14/2014 LINEN TECH 06/16/2014 LINEN TECH 06/23/2014 LINEN TECH Location of INR sample : Clinic Lab Lab Type of Sample : Venous Venous INR Result : 1.3 on 06/13 2.4 faxed from lab 2.0 Warfarin Dose : (pt took 2.5mg 06/13) 5mg Sat and 5mg Sun (06/14 and 06/15) 5mg Mon and 2.5mg all other days 5mg Mon and 2.5mg all other days Total Weekly Warfarin Dose : 20 20 Comment : [place] lab called with INR result from 06/13, reported they left a message with Dr. Henriquez and hadn't heard back, spoke with mother, Fabiola, and gave doses, continue Lovenox and repeat INR 06/16, message left with INR clinic in to contact CF Please contact [facility] on 06/16 for result and may call Fabiola at [phone] with instructions call to Fabiola/will stop Lovenox [...] by : WALI Steven LM, RN - 03/19/2015 12:22 CDT WALI MCCLELLAN RN - 03/19/2015 12:22 CDT WALI MCCLELLAN RN - 03/19/2015 12:22 CDT WALI MCCLELLAN RN - 03/19/2015 12:22 CDT Date : 07/10/2014 LINEN TECH 07/17/2014 LINEN TECH 07/31/2014 LINEN TECH 09/11/2014 CDT Location of INR sample : [...] completed by : WALI Yarbrough RN - 03/19/2015 12:22 CDT WALI MCCLELLAN RN - 03/19/2015 12:22 CDT WALI MCCLELLAN RN - 03/19/2015 12:22 CDT WALI MCCLELLAN RN - 03/19/2015 12:22 CDT Date : 09/12/2014 CDT 09/25/2014 CDT [...] completed by : WALI Almaguer RN - 03/19/2015 12:22 CDT WALI MCCLELLAN RN - 03/19/2015 12:22 CDT WALI MCCLELLAN RN - 03/19/2015 12:22 CDT WALI MCCLELLAN RN - 03/19/2015 12:22 CDT Date : 10/23/2014 CDT 11/13/2014 CDT [...] change is she is exercising alot for meebee/no bleeding/consult with Quintin/Pharmacy and called Mom with orders Per Meredith Hernandez, no changes, has been drinking some Kiwi Juice, no bleeding/consult with Quintin/Pharmacy Called to mom /Fabiola, no changes, [facility] Recommend Recheck : Three weeks One week One week One week Plan completed by : WALI Skinner RN - 03/19/2015 12:22 CDT WALI MCCLELLAN RN - 03/19/2015 12:22 CDT WALI MCCLELLAN RN - 03/19/2015 12:22 CDT WALI MCCLELLAN RN - 03/19/2015 12:22 CDT Date : 12/04/2014 CDT 12/18/2014 CDT [...] completed by : WALI Cabrera RN - 03/19/2015 12:22 CDT WALI MCCLELLAN RN - 03/19/2015 12:22 CDT WALI MCCLELLAN RN - 03/19/2015 12:22 CDT WALI MCCLELLAN RN - 03/19/2015 12:22 CDT Date : 02/05/2015 CDT 02/26/2015 CDT [...] completed by : WALI LAWRENCE RN - 03/19/2015 12:22 CDT WALI MCCLELLAN RN - 03/19/2015 12:22 CDT WALI MCCLELLAN RN - 03/19/2015 12:22 CDT WALI MCCLELLAN RN - 03/19/2015 12:22 CDT Anticoagulation Assessment / History Visit : Phone management Plan of Care Date : 01/29/2008 CDT Primary Physician Anticoagulation : TASHA HENRIQUEZ MD 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 : DVT Lower, Other: Deep Phlebitis-Leg NEC CHADS2 Score Date : 09/05/2013 CDT WALI MCCLELLAN RN - 03/19/2015 12:22 CDT Changes / Problems Changes/Problems Since Last Visit : None Been Scheduled For : None Missed Coumadin Doses : None Change In Intake : None Change In Medication : None Have You Had : None Plans to Travel : No WALI MCCLELLAN RN - 03/19/2015 12:22 CDT Source: [facility] [employer] Document Id: [id number] CDT![id number] Miscellaneous - Wali Mcclellan - 03/19/2015 11:07 AM CDT Results Notification Document Contains Addenda Addendum by WALI MCCLELLAN RN on 19 March 2015 12:26:17 CDT Orders called to Mom/Fabiola. From: WALI MCCLELLAN RN ( Anticoagulation Nurse) To: Anticoagulation Nurse; Sent: 03/19/2015 11:07:19 CDT Show up: 03/19/2015 11:08:00 CDT Subject: Results Notification Results: Date Result Name Value Ref Range 03/19/2015 08:10 PT 28.3 second(s) (8.7 - 11.8) 03/19/2015 08:10 INR 2.6 INR (0.9 - 1.1) Source: [facility] [employer] Document Id: [id number] documented in this encounter Plan of Treatment Not on filedocumented as of this encounter Procedures Procedure Name Priority Date/Time Associated Comments Diagnosis PROTHROMBIN TIME Routine 03/19/2015 8:10 AM Resul ts for this (PT), P CDT procedure are i n the results section. documented in this encounter Results (ABNORMAL) PT (Prothrombin Time) with INR (03/19/2015 8:10 AM CDT) [facility] gist Method Time Signature Prothrombin 28.3 (H) 8.7 - 11.8 POWERCHART Time, P SECONDS INR 2.6 (H) 0.9 - 1.1 POWERCHART INR Comment: Recommended INR for prophylaxis/treatmen t of Venous Thrombosis, Pulmonary Embolism, Myocardial Infarction, and Embolism from Atrial Fibrillation is 2.0- 3.0 (Standard Therapy) Recommended INR for Mechanical Heart Tejla ves and recurrent Systemic Embolism is 2.5-3.5 (Intensive Therapy) Specimen (Source) Anatomical Collection Method Collection Time Re ceived Time Location / / Volume Laterality Blood 03/19/2015 8:10 AM CDT Tasha Henriquez M.D. LAB BLOOD ADD-ON Performing Organization Address City/State/ZIP Code Phon e Number POWERCHART documented in this encounter Visit Diagnoses Not on filedocumented in this encounter
--- OUTSIDE RECORDS SUMMARY | 2022-04-25 16:02 | XMS_ITS | Encounter Summary ---
:1975 Author Organization [facility] Address [address] [place] [address] Care Team Providers Name Role Phone Unavailable Primary Care Provider Unavailable Encounter Details Date Type Department Care Team Description 04/09/2015 Hospital Encounter HX [facility] Marsha Henriquez M.D. [address] [place], [place] [address] (Wo rk) Social History [...] - - Height 147 cm (4' 9.87) 04/09/2015 7:02 AM CDT Body Mass Index - - documented in this encounter Medications at Time of Discharge Medication Sig Dispensed Refills Start Date End Date multivitamin tablet Take 2 tablets by 0 3 mouth daily. FLUORIDE, SODIUM, Apply 1 application 0 3 12/31/2019 DENTAL topically 2 (two) times a day. documented as of this encounter Miscellaneous Notes Miscellaneous - Khadar Banda, RMichaelN. - 04/09/2015 10:02 AM CDT Anticoagulation Patient Intake Anticoagulation Patient Intake Entered On: 04/09/2015 10:05 CDT Performed On: 04/09/2015 10:02 CDT by KHADAR BANDA RN Plan INR goal range : 2.0 - 3.0 Duration of Therapy : Lifelong Tablet Size : 3 mg, 5 mg KHADAR BANDA RN - 04/09/2015 10:02 CDT Anticoagulation Management Plan Grid Date : [...] darya BURGESS JM KHADAR Mae RN - 04/09/2015 10:02 CDKHADAR BERNSTEIN RN - 04/09/2015 10:02 PATRICIAT KHADAR BANDA RN - 04/09/2015 10:02 PATRICIAT KHADAR BANDA RN - 04/09/2015 10:02 CDT Date : 12/26/2013 CDT 01/30/2014 CDT [...] completed by : KHADAR Cho RN - 04/09/2015 10:02 CDT KHADAR BANDA RN - 04/09/2015 10:02 CDT KHADAR BANDA RN - 04/09/2015 10:02 CDT KHADAR BANDA RN - 04/09/2015 10:02 CDT Date : 03/20/2014 CDT 03/27/2014 CDT [...] by : darya lackey [facility]/pharmacy KHADAR BANDA RN - 04/09/2015 10:02 CDT KHADAR BANDA RN - 04/09/2015 10:02 CDT KHADAR BANDA RN - 04/09/2015 10:02 CDT KHADAR BANDA RN - 04/09/2015 10:02 CDT Date : 04/17/2014 CDT 04/24/2014 CDT 05/01/2014 ALLERGY AND IMMUNOLOGY SPECIALIST 05/15/2014 ALLERGY AND IMMUNOLOGY SPECIALIST Location of INR sample : Lab Lab [...] will trynoted dose called to mom Fabiola [phone] called to Fabiola/no changes Called to mother/Fabiola, not awareof any changes Recommend Recheck : One week One week Two weeks Two weeks Plan completed by : MARIA GUADALUPE FITCH OZZY KHADAR CAICEDO RN - 04/09/2015 10:02 CDT KHADAR BANDA RN - 04/09/2015 10:02 CDT KHADAR BANDA RN - 04/09/2015 10:02 CDT KHADAR BANDA RN - 04/09/2015 10:02 CDT Date : 06/03/2014 ALLERGY AND IMMUNOLOGY SPECIALIST 06/05/2014 ALLERGY AND IMMUNOLOGY SPECIALIST 06/10/2014 ALLERGY AND IMMUNOLOGY SPECIALIST 06/11/2014 ALLERGY AND IMMUNOLOGY SPECIALIST Location of INR sample : Lab Type [...] Called motherFabiola. Hue will be staying in [place] 2wks post-surgery & have INR drawn there. [...] lovenox tomorrow AM as ordered. INR in [place] for next several weeks as pt will be recovering there. Recommend Recheck : Other: depending on Dr. Henriquez's preop. Other: 06/18 Other: 06/13/14 Plan completed by : KHADAR SANDERS RN - 04/09/2015 10:02 CDKHADAR BERNSTEIN RN - 04/09/2015 10:02 KHADAR HILL RN - 04/09/2015 10:02 KHADAR HILL RN - 04/09/2015 10:02 CDT Date : 06/14/2014 ALLERGY AND IMMUNOLOGY SPECIALIST 06/14/2014 ALLERGY AND IMMUNOLOGY SPECIALIST 06/16/2014 ALLERGY AND IMMUNOLOGY SPECIALIST 06/23/2014 ALLERGY AND IMMUNOLOGY SPECIALIST Location of INR sample : Clinic Lab Lab Type of Sample : Venous Venous INR Result : 1.3 on 06/13 2.4 faxed from lab 2.0 Warfarin Dose : (pt took 2.5mg 06/13) 5mg Sat and 5mg Sun (06/14 and 06/15) 5mg Mon and 2.5mg all other days 5mg Mon and 2.5mg all other days Total Weekly Warfarin Dose : 20 20 Comment : [place] lab called with INR result from 06/13, reported they left a message with Dr. Henriquez and hadn't heard back, spoke with mother, Fabiola, and gave doses, continue Lovenox and repeat INR 06/16, message left with INR clinic in to contact CF Please contact [place] lab on 06/16 for result and may call Fabiola at [phone] with instructions call to Fabiola/will stop Lovenox injections and take noted dose/pt has an appt here in 06/23 so will do lab appt here that day Called to Fabiola/ Hue will be back at [facility] by next draw. will have done on . no changes to meds/diet. Recommend Recheck : Two days One week Two weeks Plan completed by : KHADAR Mattson LM, RN - 04/09/2015 10:02 CDT KHADAR BANDA RN - 04/09/2015 10:02 PATRICIAT KHADAR BANDA RN - 04/09/2015 10:02 CDT KHADAR BANDA RN - 04/09/2015 10:02 CDT Date : 07/10/2014 ALLERGY AND IMMUNOLOGY SPECIALIST 07/17/2014 ALLERGY AND IMMUNOLOGY SPECIALIST 07/31/2014 ALLERGY AND IMMUNOLOGY SPECIALIST 09/11/2014 CDT Location of INR sample : [...] completed by : KHADAR Dumont RN - 04/09/2015 10:02 PATRICIAT KHADAR BANDA RN - 04/09/2015 10:02 PATRICIAT KHADAR BANDA RN - 04/09/2015 10:02 KHADAR HILL RN - 04/09/2015 10:02 CDT Date : 09/12/2014 CDT 09/25/2014 CDT [...] completed by : KHADAR Rondon RN - 04/09/2015 10:02 CDT KHADAR BANDA RN - 04/09/2015 10:02 CDT KHADAR BANDA RN - 04/09/2015 10:02 CDT KHADAR BANDA RN - 04/09/2015 10:02 CDT Date : 10/23/2014 CDT 11/13/2014 CDT [...] 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/no bleeding/consult with Quintin/Pharmacy and called Mom with orders Per Meredith Hernandez, no changes, has been drinking some Kiwi Juice, no bleeding/consult with Quintin/Pharmacy Called to mom /Fabiola, no changes, rev'd w/BCarlson/Pharmacy Recommend Recheck : Three weeks One week One week One week Plan completed by : KHADAR Toro RN - 04/09/2015 10:02 CDT KHADAR BANDA RN - 04/09/2015 10:02 CDT KHADAR BANDA RN - 04/09/2015 10:02 CDT KHADAR BANDA RN - 04/09/2015 10:02 CDT Date : 12/04/2014 CDT 12/18/2014 CDT [...] completed by : KHADAR Vargas RN - 04/09/2015 10:02 CDKHADAR BERNSTEIN RN - 04/09/2015 10:02 PATRICIAT KHADAR BANDA RN - 04/09/2015 10:02 PATRICIAT KHADAR BANDA RN - 04/09/2015 10:02 CDT Date : 02/05/2015 CDT 02/26/2015 CDT [...] completed by : KHADAR SLOAN RN - 04/09/2015 10:02 CDT KHADAR BANDA RN - 04/09/2015 10:02 CDT KHADAR BANDA RN - 04/09/2015 10:02 CDT KHADAR BANDA RN - 04/09/2015 10:02 CDT Date : 04/09/2015 CDT Location of INR sample : Lab Type of Sample : Venous INR Result : 2.7 Warfarin Dose : 5mg Mon/Thurs, 2.5mg all other days Total Weekly Warfarin Dose : 22.5 Comment : called to Mom/Fabiola, no changes Recommend Recheck : One month Plan completed by : KHADAR Mae RN - 04/09/2015 10:02 CDT Anticoagulation Assessment / History Visit : Phone management Plan of Care Date : 01/29/2008 CDT Primary Physician Anticoagulation : TASHA HENRIQUEZ MD 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 : DVT Lower, Other: Deep Phlebitis-Leg NEC CHADS2 Score Date : 09/05/2013 CDT KHADAR BANDA RN - 04/09/2015 10:02 CDT Changes / Problems Changes/Problems Since Last Visit : None Been Scheduled For : None Missed Coumadin Doses : None Change In Intake : None Change In Medication : None Have You Had : None KHADAR BANDA RN - 04/09/2015 10:02 CDT [facility] Document Id: [id number] CDT!436 Miscellaneous - Khadar Banda RViktor - 04/09/2015 9:58 AM CDT Results Notification From: KHADAR BANDA RN ( Anticoagulation Nurse) To: Anticoagulation Nurse; Sent: 04/09/2015 09:58:19 CDT Show up: 04/09/2015 09:59:00 CDT Subject: Results Notification Results: Date Result Name Value Ref Range 04/09/2015 09:00 PT 30.8 second(s) 04/09/2015 09:00 INR 2.7 INR (0.8 - 1.1) Source: [facility] POWERCHART Document Id: [id number] Electronically signed by Conversion, [facility] [place] Alarm Operator [id number] at 11/21/2016 4:16 AM CDT documented in this encounter Plan of Treatment Not on filedocumented as of this encounter Procedures Procedure Name Priority Date/Time Associated Comments Diagnosis PROTHROMBIN TIME Routine 04/09/2015 9:00 AM Resul ts for this (PT), P CDT procedure are i n the results section. documented in this encounter Results (ABNORMAL) PT (Prothrombin Time) with INR (04/09/2015 9:00 AM CDT) [facility] gist Method Time Signature Prothrombin 30.8 SECONDS POWERCHART Time, P INR 2.7 (H) 0.8 - 1.1 POWERCHART INR Comment: Recommended INR for prophylaxis/treatmen t of Venous Thrombosis, Pulmonary Embolism, Myocardial Infarction, and Embolism from Atrial Fibrillation is 2.0- 3.0 (Standard Therapy) Recommended INR for Mechanical Heart Tejal ves and recurrent Systemic Embolism is 2.5-3.5 (Intensive Therapy) Specimen (Source) Anatomical Collection Method Collection Time Re ceived Time Location / / Volume Laterality Blood 04/09/2015 9:00 AM CDT Tasha Henriquez M.D. LAB BLOOD ADD-ON Performing Organization Address City/State/ZIP Code Phon e Number POWERCHART documented in this encounter Visit Diagnoses Not on filedocumented in this encounter
--- OUTSIDE RECORDS SUMMARY | 2022-04-25 16:02 | XMS_ITS | Encounter Summary ---
:1975 Author Organization [facility] Address [address] [place] [address] Care Team Providers Name Role Phone Unavailable Primary Care Provider Unavailable Encounter Details Date Type Department Care Team Description 11/07/2014 Hospital Encounter [facility] Marsha Henriquez M.D. [address] [place], [place] [address] (Wo rk) Social History Tobacco Use Types Packs/Day Years Used Date Smoking Tobacco: Never Assessed Sex Assigned at Date Recorded Not on file documented as of this encounter Last Filed Vital Signs Vital Sign Reading Time Taken Comments Blood Pressure 90/60 11/07/2014 3:57 PM CDT Pulse 70 11/07/2014 3:57 PM CDT Temperature - - Respiratory Rate - - Oxygen Saturation - - Inhaled Oxygen Concentration - - Weight 78.6 kg (173 lb 4.5 oz) 11/07/2014 3:57 PM CDT Height 147 cm (4' 9.87) 11/07/2014 3:57 PM CDT Body Mass Index 36.37 11/07/2014 3:57 PM CDT documented in this encounter Medications at Time of Discharge Medication Sig Dispensed Refills Start Date End Date multivitamin tablet Take 2 tablets by 0 3 mouth daily. FLUORIDE, SODIUM, Apply 1 application 0 3 12/31/2019 DENTAL topically 2 (two) times a day. documented as of this encounter H&P Notes Tasha Henriquez M.D. - 11/07/2014 3:25 PM CDT [id number] Dorita presents today for a physical. She gets wax in her ears and no pain. Also, apparently, has some history of psoriasis. According to her mother, she has a history of this. She uses Kenalog cream as needed. She has a history of deep vein thrombosis and protein S deficiency, and saw Dr. Liv Riley. She greg lifelong Coumadin. Also has a history of hyperlipidemia and hyperglycemia. She was seen for a ANIMAL STICKER visit in the past andhad a mild elevation of her TSH and normal free T4. Antibodies were checked and were negative, so she does not have Mary Ann's thyroiditis. No further recheck necessary. Her hyperlipidemia is diet controlled. She had heart surgery at [place] on March 29, 2013. PAST MEDICAL/SURGICAL HISTORY Reviewed. FAMILY HISTORY Reviewed. [...] intact throughout. Reflexes are 2+ and symmetric. BREASTS: Normal. PELVIC: She declines. 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 2. History of mild elevation of her TSH, but no Mary Ann's. 3. Hyperlipidemia, diet controlled. 4. History of mild hyperglycemia. 5. Cerumen impaction, cleared with ear wash. 6. History of psoriasis. 7. History of venous stasis edema. 8. 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 PLAN: Recent labs reviewed and her blood sugar was normal. Otherwise, continue Kenalog as needed forher psoriasis. She will continue her efforts with diet and exercise. 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 She does not do any at-risk activities. Otherwise, continue Coumadin lifelong and should use her Jobst stockings for her mild edema. Follow up 1 year and as needed. Tasha Henriquez M.D./erin Electronically Signed By: TSAHA HENRIQUEZ MD On: 11/11/2014 07:26 AM Source: [facility] MHSDOLBEYNONRADSYS Document Id: [id number] documented in this encounter Procedure Notes Ellis Salvador L.P.N. - 11/07/2014 5:03 PM CDT Ear Irrigation Ear Irrigation Entered On: 11/07/2014 17:04 CDT Performed On: 11/07/2014 17:03 CDT by ELLIS SALVADOR LPN Ear Irrigation Ear Irrigation Location : Bilateral Ear Irrigation Technique Used : Ear washer Ear Irrigation Solution Used : Warm water Patient's Tolerance/cooperation : Mom helped by holding ear cup Ear Irrigation Results : Small amount of cerumen removed Post irrigation ear canal evaluation : Patent Post Irrigation Tympanic Membrane Eval : Intact ELLIS SALVADOR LPN - 11/07/2014 17:03 CDT Source: [facility] POWERCHART Document Id: [id number] CDT!9 documented in this encounter Miscellaneous Notes Miscellaneous - Tasha Henriquez M.D. - 11/07/2014 4:49 PM CDT Ambulatory Patient Summary [facility] [address], [address] [place], [place] [id number] Visit Information Name: DORITA SHEFFIELD [facility] Number: [id number] Current Date: 11/07/2014 16:49:03 Physicians Attending Provider: TASHA HENRIQUEZ MD Primary [...] 1 luther, Topical[facility] See Instructions Rx mouth wash - daily multivitamin (multivitamin) 1 tab, Oral, once a day warfarin (warfarin 5 mg oral tablet) See Instructions 5mg Tues, Thurs & Sat, 2.5mg all other days or as directed by the INR Clinic as of 10/23/14 warfarin (warfarin 1 mg oral tablet) See Instructions 1 mg daily or as directed per INR Clinic Stop Taking the Following Medications: Medication list as of 11-07-14 16:49 Attention: If you have any medications at home that are not on this list, DO NOT take them until youcontact your provider for clarification. Give a copy of your medication list to your primary care provider. Update your medication list any time medications or doses are changed and carry your medication list at all times in case of emergency. Electronically Signed By: TASHA HENRIUQEZ MD Signed On:07-NOV-2014 16:48:58 Your Allergies & Intolerances Substance Reaction Symptoms [...] Your Upcoming Appointments Date Time Location Provider 11/13/2014 08:15 [facility] Offsite 11/13/2014 15:30 [facility] Mammo [facility] RM 1 Attention: Contact your local Clinic if further appointment detail needed. Your Goals/Additional instructions: Source: [facility] POWERCHART Document Id: [id number] Miscellaneous - Tasha Henriquez M.D. - 11/07/2014 4:49 PM CDT Ambulatory Discharge Medication List [facility] [address] [place], [place] [id number] Visit Information Name: DORITA SHEFFIELD [facility] Number: [id number] Visit Date: 11/07/2014 16:49:02 Attending Provider: TASHA HENRIQUEZ MD Primary Care [...] 1 luther, Topical, two times a day Mis Prescription (NEW MED) See Instructions Rx mouth wash - daily multivitamin (multivitamin) 1 tab, Oral, once a day warfarin (warfarin 5 mg oral tablet) See Instructions 5mg Tues, Thurs & Sat, 2.5mg all other days or as directed by the INR Clinic as of 10/23/14 warfarin (warfarin 1 mg oral tablet) See Instructions 1 mg daily or as directed per INR Clinic Stop Taking the Following Medications: Medication list as of 11-07-14 16:49 Attention: If you have any medications at [...] Electronically Signed By: TASHA HENRIQUEZ MD Signed On:07-NOV-2014 16:48:58 Additional Information: Source: [facility] POWERCHART Document Id: [id number] Miscellaneous - Ellis Salvador, L.P.N. - 11/07/2014 3:57 PM CDT Adult [facility] Intake/History [facility] Intake/History Entered On: 11/07/2014 16:01 CDT Performed On: 11/07/2014 15:57 CDT by ELLIS SALVADOR LPN Intake Chief Complaint : Annual Physical Ambulatory Intake Additional Information : Can't recall date of LMP, but it was 2 weeks late Temperature Core : 36.1 DegC(Converted to: 97.0 DegF) (LOW) Peripheral Pulse Rate : 70 /min Systolic Blood Pressure : 90 mmHg (LOW) Diastolic Blood Pressure : 60 mmHg NIBP Mean : 70 mmHg BP Location : Right upper extremity Blood Pressure Cuff Size : Large Height : 147 cm(Converted to: 4 ft 10 inch(es), 58 inch(es)) Actual Weight : 78.6 kg(Converted to: 173 lb 5 oz) Weight Source : Standing scale Dosing Weight Clinic : 78.6 kg Clinic BSA : 1.79 Body Mass Index : 36.37 kg/m2 ELLIS SALVADOR LPN - 11/07/2014 15:57 CDT General Info Information Given By : Patient, Mother Preferred Communication Mode : Verbal Languages : Wolof Is Patient Female and 13-50 no hysterectomy : Yes Status : Patient denies Are you ? : No ELLIS SALVADOR LPN - 11/07/2014 15:57 CDT Subjective Pain Symptoms : No ELLIS SALVADOR LPN - 11/07/2014 15:57 CDT Dependent Habits Tobacco Use/Currently Using : No Tobacco Use/Last 12 months : No Exposure to Tobacco Smoke : Other: never smoker Smoking Status : Never smoker ELLIS SALVADOR LPN - 11/07/2014 15:57 CDT ID Screen Drug Resistant Organism : No Travel Within Last 21 Days : No Contact with someone with Ebola : No ELLIS SALVADOR LPN - 11/07/2014 15:57 CDT [facility] POWER[facility] Document Id: [id number] CDT!35 documented in this encounter Plan of Treatment Not on filedocumented as of this encounter Visit Diagnoses Not on filedocumented in this encounter
--- OUTSIDE RECORDS SUMMARY | 2022-04-25 16:02 | XMS_ITS | Encounter Summary ---
:1975 Author Organization [facility] Address [address] [place] [id number] Care Team Providers Name Role Phone Unavailable Primary Care Provider Unavailable Encounter Details Date Type Department Care Team Description 12/04/2014 Hospital Encounter HX [facility] Marsha Henriquez M.D. [address] [place], [place] [address] (Wo rk) Social History [...] - - Height 147 cm (4' 9.87) 12/04/2014 7:25 AM CDT Body Mass Index - - documented in this encounter Medications at Time of Discharge Medication Sig Dispensed Refills Start Date End Date multivitamin tablet Take 2 tablets by 0 3 mouth daily. FLUORIDE, SODIUM, Apply 1 application 0 3 12/31/2019 DENTAL topically 2 (two) times a day. documented as of this encounter Miscellaneous Notes Miscellaneous - Khadar Banda RMichaelN. - 12/04/2014 10:13 AM CDT Anticoagulation Patient Intake Anticoagulation Patient Intake Entered On: 12/04/2014 10:17 CDT Performed On: 12/04/2014 10:13 CDT by KHADAR BANDA RN Plan INR goal range : 2.0 - 3.0 Duration of Therapy : Lifelong Tablet Size : 5 mg KHADAR BANDA RN - 12/04/2014 10:13 CDT Anticoagulation Management Plan Grid Date : [...] darya BURGESS JM KHADAR Mae RN - 12/04/2014 10:13 CDKHADAR BERNSTEIN RN - 12/04/2014 10:13 CDT KHADAR BANDA RN - 12/04/2014 10:13 CDT KHADAR BANDA RN - 12/04/2014 10:13 CDT Date : 12/26/2013 CDT 01/30/2014 CDT [...] completed by : KHADAR Cho RN - 12/04/2014 10:13 CDT KHADAR BANDA RN - 12/04/2014 10:13 CDT KHADAR BANDA RN - 12/04/2014 10:13 CDT KHADAR BANDA RN - 12/04/2014 10:13 CDT Date : 03/20/2014 CDT 03/27/2014 CDT [...] : darya lackey [facility]/pharmacy KHADAR BANDA RN - 12/04/2014 10:13 CDT KHADAR BANDA RN - 12/04/2014 10:13 CDT KHADAR BANDA RN - 12/04/2014 10:13 CDT KHADAR BANDA RN - 12/04/2014 10:13 CDT Date : 04/17/2014 CDT 04/24/2014 CDT 05/01/2014 OFFICE MACHINE REPAIR SHOP SUPERVISOR 05/15/2014 OFFICE MACHINE REPAIR SHOP SUPERVISOR Location of INR sample : Lab Lab [...] will trynoted dose called to mom Fabiola [phone] called to Fabiola/no changes Called to mother/Fabiola, not awareof any changes Recommend Recheck : One week One week Two weeks Two weeks Plan completed by : KHADAR HACKETT RN - 12/04/2014 10:13 CDT KHADAR BANDA RN - 12/04/2014 10:13 CDT KHADAR BANDA RN - 12/04/2014 10:13 CDT KHADAR BANDA RN - 12/04/2014 10:13 CDT Date : 06/03/2014 OFFICE MACHINE REPAIR SHOP SUPERVISOR 06/05/2014 OFFICE MACHINE REPAIR SHOP SUPERVISOR 06/10/2014 OFFICE MACHINE REPAIR SHOP SUPERVISOR 06/11/2014 OFFICE MACHINE REPAIR SHOP SUPERVISOR Location of INR sample : Lab Type [...] Called motherFabiola. Hue will be staying in [place] 2wks post-surgery & have INR drawn there. [...] lovenox tomorrow AM as ordered. INR in [place] for next several weeks as pt will be recovering there. Recommend Recheck : Other: depending on Dr. Henriquez's preop. Other: 06/18 Other: 06/13/14 Plan completed by : KHADAR SANDERS RN - 12/04/2014 10:13 CDT KHADAR BANDA RN - 12/04/2014 10:13 CDT KHADAR BANDA RN - 12/04/2014 10:13 CDT KHADAR BANDA RN - 12/04/2014 10:13 CDT Date : 06/14/2014 OFFICE MACHINE REPAIR SHOP SUPERVISOR 06/14/2014 OFFICE MACHINE REPAIR SHOP SUPERVISOR 06/16/2014 OFFICE MACHINE REPAIR SHOP SUPERVISOR 06/23/2014 OFFICE MACHINE REPAIR SHOP SUPERVISOR Location of INR sample : Clinic Lab Lab Type of Sample : Venous Venous INR Result : 1.3 on 06/13 2.4 faxed from lab 2.0 Warfarin Dose : (pt took 2.5mg 06/13) 5mg Sat and 5mg Sun (06/14 and 06/15) 5mg Mon and 2.5mg all other days 5mg Mon and 2.5mg all other days Total Weekly Warfarin Dose : 20 20 Comment : [place] lab called with INR result from 06/13, reported they left a message with Dr. Henriquez and hadn't heard back, spoke with mother, Fabiola, and gave doses, continue Lovenox and repeat INR 06/16, message left with INR clinic in to contact CF Please contact [place] lab on 06/16 for result and may call Fabiola at [phone] with instructions call to Fabiola/will stop Lovenox injections and take noted dose/pt has an appt here in 06/23 so will do lab appt here that day Called to Fabiola/ Hue will be back at [facility] by next draw. will have done on . no changes to meds/diet. Recommend Recheck : Two days One week Two weeks Plan completed by : KHADAR Mattson LM RN - 12/04/2014 10:13 CDT KHADAR BANDA RN - 12/04/2014 10:13 PATRICIAT KHADAR BANDA RN - 12/04/2014 10:13 CDT KHADAR BANDA RN - 12/04/2014 10:13 CDT Date : 07/10/2014 OFFICE MACHINE REPAIR SHOP SUPERVISOR 07/17/2014 OFFICE MACHINE REPAIR SHOP SUPERVISOR 07/31/2014 OFFICE MACHINE REPAIR SHOP SUPERVISOR 09/11/2014 CDT Location of INR sample : [...] completed by : KHADAR Dumont RN - 12/04/2014 10:13 PATRICIAT KHADAR BANDA RN - 12/04/2014 10:13 PATRICIAT KHADAR BANDA RN - 12/04/2014 10:13 PATRICIAT KHADAR BANDA RN - 12/04/2014 10:13 CDT Date : 09/12/2014 CDT 09/25/2014 CDT [...] completed by : KHADAR Rondon RN - 12/04/2014 10:13 CDT KHADAR BANDA RN - 12/04/2014 10:13 CDT KHADAR BANDA RN - 12/04/2014 10:13 CDT KHADAR BANDA RN - 12/04/2014 10:13 CDT Date : 10/23/2014 CDT 11/13/2014 CDT [...] completed by : KHADAR Toro RN - 12/04/2014 10:13 CDT KHADAR BANDA RN - 12/04/2014 10:13 CDT KHADAR BANDA RN - 12/04/2014 10:13 CDT KHADAR BANDA RN - 12/04/2014 10:13 CDT Date : 12/04/2014 CDT Location of INR sample : Lab Type of Sample : Venous INR Result : 2.1 Warfarin Dose : 5mg Thurs, 2.5mg all other days Total Weekly Warfarin Dose : 20 Comment : called to Mom/Fabiola/no changes or bleeding concerns Recommend Recheck : Two weeks Plan completed by : KHADAR Mae RN - 12/04/2014 10:13 CDT Anticoagulation Assessment / History Visit : Phone management Plan of Care Date : 01/29/2008 CDT Primary Physician Anticoagulation : TASHA HENRIQUEZ MD 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 - 12/04/2014 10:04 AM CDT Results Notification From: KHADAR BANDA RN ( Anticoagulation Nurse) To: Anticoagulation Nurse; Sent: 12/04/2014 10:04:22 CDT Show up: 12/04/2014 10:05:00 CDT Subject: Results Notification Results: Date Result Name Value Ref Range 12/04/2014 08:03 PT 23.1 second(s) 12/04/2014 08:03 INR 2.1 INR (0.8 - 1.1) Source: [employer] Document Id: [id number] Electronically signed by [facility] Centers[facility] Sales Agent [employer] [id number] at 11/21/2016 3:30 PM CDT documented in this encounter Plan of Treatment Not on filedocumented as of this encounter Procedures Procedure Name Priority Date/Time Associated Comments Diagnosis PROTHROMBIN TIME Routine 12/04/2014 8:03 AM Resul ts for this (PT), P CDT procedure are i n the results section. documented in this encounter Results (ABNORMAL) PT (Prothrombin Time) with INR (12/04/2014 8:03 AM CDT) [facility] Method Time Signature Prothrombin 23.1 SECONDS POWERCHART Time, P INR 2.1 (H) 0.8 - 1.1 POWERCHART INR Comment: Recommended INR for prophylaxis/treatmen t of Venous Thrombosis, Pulmonary Embolism, Myocardial Infarction, and Embolism from Atrial Fibrillation is 2.0- 3.0 (Standard Therapy) Recommended INR for Mechanical Heart Tejal ves and recurrent Systemic Embolism is 2.5-3.5 (Intensive Therapy) Specimen (Source) Anatomical Collection Method Collection Time Re ceived Time Location / / Volume Laterality Blood 12/04/2014 8:03 AM CDT Tasha Henriquez M.D. LAB BLOOD ADD-ON Performing Organization Address City/State/ZIP Code Phon e Number POWERCHART documented in this encounter Visit Diagnoses Not on filedocumented in this encounter
--- OUTSIDE RECORDS SUMMARY | 2022-04-25 16:02 | XMS_ITS | Encounter Summary ---
:1975 Author Organization [facility] Address [address] [place] [address] Care Team Providers Name Role Phone Unavailable Primary Care Provider Unavailable Encounter Details Date Type Department Care Team Description 10/29/2015 Hospital Encounter HX [facility] Marsha Henriquez M.D. [address] [place], [place] [address] (Wo rk) Social History [...] - - Height 147 cm (4' 9.87) 10/29/2015 7:37 AM CDT Body Mass Index - - documented in this encounter Medications at Time of Discharge Medication Sig Dispensed Refills Start Date End Date multivitamin tablet Take 2 tablets by 0 3 mouth daily. FLUORIDE, SODIUM, Apply 1 application 0 3 12/31/2019 DENTAL topically 2 (two) times a day. documented as of this encounter Miscellaneous Notes Miscellaneous - Khadar Banda, RMichaelN. - 10/29/2015 10:35 AM CDT Anticoagulation Patient Intake Anticoagulation Patient Intake Entered On: 10/29/2015 10:39 CDT Performed On: 10/29/2015 10:35 CDT by KHADAR BANDA RN Plan INR goal range : 2.0 - 3.0 Duration of Therapy : Lifelong Tablet Size : 5 mg KHADAR BANDA RN - 10/29/2015 10:35 CDT Anticoagulation Management Plan Grid Date [...] darya BURGESS JM KHADAR Mae RN - 10/29/2015 10:35 CDT KHADAR BANDA RN - 10/29/2015 10:35 CDT KHADAR BANDA RN - 10/29/2015 10:35 CDT KHADAR BANDA RN - 10/29/2015 10:35 CDT Date : 12/26/2013 CDT 01/30/2014 [...] completed by : KHADAR Cho RN - 10/29/2015 10:35 CDT KHADAR BANDA RN - 10/29/2015 10:35 CDT KHADAR BANDA RN - 10/29/2015 10:35 CDT KHADAR BANDA RN - 10/29/2015 10:35 CDT Date : 03/20/2014 CDT 03/27/2014 [...] Other: Plan completed by : darya lackey [facility]/pharmacy KHADAR BANDA RN - 10/29/2015 10:35 CDT KHADAR BANDA RN - 10/29/2015 10:35 CDT KHADAR BANDA RN - 10/29/2015 10:35 CDT KHADAR BANDA RN - 10/29/2015 10:35 CDT Date : 04/17/2014 CDT 04/24/2014 CDT 05/01/2014 PAINT SUPERVISOR 05/15/2014 PAINT SUPERVISOR Location of INR sample : Lab [...] will trynoted dose called to mom Fabiola [phone] called to Fabiola/no changes Called to mother/Fabiola, not awareof any changes Recommend Recheck : One week One week Two weeks Two weeks Plan completed by : KHADAR HACKETT RN - 10/29/2015 10:35 CDT KHADAR BANDA RN - 10/29/2015 10:35 CDT KHADAR BANDA RN - 10/29/2015 10:35 CDT KHADAR BANDA RN - 10/29/2015 10:35 CDT Date : 06/03/2014 PAINT SUPERVISOR 06/05/2014 PAINT SUPERVISOR 06/10/2014 PAINT SUPERVISOR 06/11/2014 PAINT SUPERVISOR Location of INR sample : Lab [...] Called motherFabiola. Hue will be staying in [place] 2wks post-surgery & have INR drawn there. [...] lovenox tomorrow AM as ordered. INR in [place] for next several weeks as pt will be recovering there. Recommend Recheck : Other: depending on Dr. Henriquez's preop. Other: 06/18 Other: 06/13/14 Plan completed by : KHADAR SANDERS RN - 10/29/2015 10:35 CDT KHADAR BANDA RN - 10/29/2015 10:35 CDT KHADAR BANDA RN - 10/29/2015 10:35 CDT KHADAR BANDA RN - 10/29/2015 10:35 CDT Date : 06/14/2014 PAINT SUPERVISOR 06/14/2014 PAINT SUPERVISOR 06/16/2014 PAINT SUPERVISOR 06/23/2014 PAINT SUPERVISOR Location of INR sample : Clinic [...] Warfarin Dose : 20 20 Comment : [place] lab called with INR result from 06/13, reported they left a message with Dr. Henriquez and hadn't heard back, spoke with mother, Fabiola, and gave doses, continue Lovenox and repeat INR 06/16, message left with INR clinic in to contact CF Please contact [place] lab on 06/16 for result and may call Fabiola at [phone] with instructions call to Fabiola/will stop Lovenox injections and take noted dose/pt has an appt here in 06/23 so will do lab appt here that day Called to Fabiola/ Hue will be back at [facility] by next draw. will have done on . no changes to meds/diet. Recommend Recheck : Two days One week Two weeks Plan completed by : KHADAR Mattson LM RN - 10/29/2015 10:35 CDT KHADAR BANDA RN - 10/29/2015 10:35 PATRICIAT KHADAR BANDA RN - 10/29/2015 10:35 PATRICIAT KHADAR BANDA RN - 10/29/2015 10:35 CDT Date : 07/10/2014 PAINT SUPERVISOR 07/17/2014 PAINT SUPERVISOR 07/31/2014 PAINT SUPERVISOR 09/11/2014 CDT Location of INR sample [...] completed by : KHADAR Dumont RN - 10/29/2015 10:35 CDT KHADAR BANDA RN - 10/29/2015 10:35 PATRICIAT KHADAR BANDA RN - 10/29/2015 10:35 PATRICIAT KHADAR BANDA RN - 10/29/2015 10:35 CDT Date : 09/12/2014 CDT 09/25/2014 [...] completed by : KHADAR Rondon RN - 10/29/2015 10:35 CDT KHADAR BANDA RN - 10/29/2015 10:35 CDT KHADAR BANDA RN - 10/29/2015 10:35 CDT KHADAR BANDA RN - 10/29/2015 10:35 CDT Date : 10/23/2014 CDT 11/13/2014 [...] called to Mom/Fabiola, no changes called to Mom Fabiola, 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/no bleeding/consult with Quintin/Pharmacy and called Mom with orders Per Meredith Hernandez, no changes, has been drinking some Kiwi Juice, no bleeding/consult with Quintin/Pharmacy Called to mom /Fabiola, no changes, rev'd w/BCarlson/Pharmacy Recommend Recheck : Three weeks One week One week One week Plan completed by : KHADAR Toro RN - 10/29/2015 10:35 CDT KHADAR BANDA RN - 10/29/2015 10:35 CDT KHADAR BANDA RN - 10/29/2015 10:35 CDT KHADAR BANDA RN - 10/29/2015 10:35 CDT Date : 12/04/2014 CDT 12/18/2014 [...] completed by : KHADAR Vargas RN - 10/29/2015 10:35 CDT KHADAR BANDA RN - 10/29/2015 10:35 CDT KHADAR BANDA RN - 10/29/2015 10:35 CDT KHADAR BANDA RN - 10/29/2015 10:35 CDT Date : 02/05/2015 CDT 02/26/2015 [...] completed by : KHADAR SLOAN RN - 10/29/2015 10:35 CDT KHADAR BANDA RN - 10/29/2015 10:35 CDT KHADAR BANDA RN - 10/29/2015 10:35 CDT KHADAR BANDA RN - 10/29/2015 10:35 CDT Date : 04/09/2015 CDT 05/07/2015 PAINT SUPERVISOR 06/04/2015 PAINT SUPERVISOR 07/02/2015 PAINT SUPERVISOR Location of INR sample : Lab [...] completed by : KHADAR Dowell RN - 10/29/2015 10:35 CDT KHADAR BANDA RN - 10/29/2015 10:35 CDT KHADAR BANDA RN - 10/29/2015 10:35 CDT KHADAR BANDA RN - 10/29/2015 10:35 CDT Date : 08/06/2015 PAINT SUPERVISOR 09/17/2015 CDT 10/29/2015 CDT Location of INR sample : Lab Clinic Lab Type of Sample : Venous Capillary/POC Venous INR Result : 2.7 2.8 3.3 Warfarin Dose : 5mg Mon/Thurs and 2.5mg all other days 5mg Mon & Thurs, 2.5mg all other days 2.5mg today instead of 5mg, then 5mg Mon/Thurs, 2.5mg all other days Total Weekly Warfarin Dose : 22.5 22.5 22.5 Comment : Orders called to Fabiola/mother. No changes. 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 - 10/29/2015 10:09 AM CDT Results Notification From: KHADAR BANDA RN ( Anticoagulation Nurse) To: Anticoagulation Nurse; Sent: 10/29/2015 10:09:21 CDT Show up: 10/29/2015 10:10:00 CDT Subject: Results Notification Results: Date Result Name Value Ref Range 10/29/2015 08:00 PT 37.9 second(s) (8.7 - 11.8) 10/29/2015 08:00 INR 3.3 INR (0.9 - 1.1) [facility] Document Id: [id number] documented in this encounter Plan of Treatment Not on filedocumented as of this encounter Procedures Procedure Name Priority Date/Time Associated Comments Diagnosis PROTHROMBIN TIME Routine 10/29/2015 8:00 AM Resul ts for this (PT), P CDT procedure are i n the results section. documented in this encounter Results (ABNORMAL) PT (Prothrombin Time) with INR (10/29/2015 8:00 AM CDT) [facility] Method Time Signature Prothrombin 37.9 (H) 8.7 - 11.8 POWERCHART Time, P SECONDS INR 3.3 (H) 0.9 - 1.1 POWERCHART INR Comment: Recommended INR for prophylaxis/treatmen t of Venous Thrombosis, Pulmonary Embolism, Myocardial Infarction, and Embolism from Atrial Fibrillation is 2.0- 3.0 (Standard Therapy) Recommended INR for Mechanical Heart Tejal ves and recurrent Systemic Embolism is 2.5-3.5 (Intensive Therapy) Specimen (Source) Anatomical Collection Method Collection Time Re ceived Time Location / / Volume Laterality Blood 10/29/2015 8:00 AM CDT Tasha Henriquez M.D. LAB BLOOD ADD-ON Performing Organization Address City/State/ZIP Code Phon e Number POWERCHART documented in this encounter Visit Diagnoses Not on filedocumented in this encounter
--- OUTSIDE RECORDS SUMMARY | 2022-04-25 16:02 | XMS_ITS | Encounter Summary ---
:1975 Author Organization [facility] Address [address] [place] [address] Care Team Providers Name Role Phone Unavailable Primary Care Provider Unavailable Encounter Details Date Type Department Care Team Description 08/06/2015 Hospital Encounter HX [facility] Marsha Henriquez M.D. [address] [place], [place] [address] (Wo rk) Social History [...] - - Height 147 cm (4' 9.87) 08/06/2015 7:39 AM FINANCIAL SERVICES TECHNICIAN Body Mass Index - - documented in this encounter Medications at Time of Discharge Medication Sig Dispensed Refills Start Date End Date multivitamin tablet Take 2 tablets by 0 3 mouth daily. FLUORIDE, SODIUM, Apply 1 application 0 3 12/31/2019 DENTAL topically 2 (two) times a day. documented as of this encounter Miscellaneous Notes Miscellaneous - Wali Zapata, RMichaelN. - 08/06/2015 3:51 PM CST Anticoagulation Patient Intake Anticoagulation Patient Intake Entered On: 08/06/2015 15:51 FINANCIAL SERVICES TECHNICIAN Performed On: 08/06/2015 15:51 FINANCIAL SERVICES TECHNICIAN by WALI ZAPATA RN Plan INR goal range : 2.0 - 3.0 Duration of Therapy : Lifelong Tablet Size : 5 mg WALI ZAPATA RN - 08/06/2015 15:51 FINANCIAL SERVICES TECHNICIAN Anticoagulation Management Plan Grid Date : 09/05/2013 [...] completed by : darya BURGESS JM WALI Cortez RN - 08/06/2015 15:51 FINANCIAL SERVICES TECHNICIAN AWLI ZAPATA RN - 08/06/2015 15:51 FINANCIAL SERVICES TECHNICIAN WALI ZAPATA RN - 08/06/2015 15:51 FINANCIAL SERVICES TECHNICIAN WALI ZAPATA RN - 08/06/2015 15:51 FINANCIAL SERVICES TECHNICIAN Date : 12/26/2013 CDT 01/30/2014 CDT 03/06/2014 [...] Other: 03/20/14 Plan completed by : WALI Chau RN - 08/06/2015 15:51 FINANCIAL SERVICES TECHNICIAN WALI ZAPATA RN - 08/06/2015 15:51 WALI HARDWICK RN - 08/06/2015 15:51 WALI HARDWICK RN - 08/06/2015 15:51 FINANCIAL SERVICES TECHNICIAN Date : 03/20/2014 CDT 03/27/2014 CDT 04/10/2014 [...] Other: Plan completed by : darya lackey [facility]/pharmacy WALI ZAPATA RN - 08/06/2015 15:51 FINANCIAL SERVICES TECHNICIAN WALI ZAPATA RN - 08/06/2015 15:51 FINANCIAL SERVICES TECHNICIAN WALI ZAPATA RN - 08/06/2015 15:51 WALI HARDWICK RN - 08/06/2015 15:51 FINANCIAL SERVICES TECHNICIAN Date : 04/17/2014 CDT 04/24/2014 CDT 05/01/2014 FINANCIAL SERVICES TECHNICIAN 05/15/2014 FINANCIAL SERVICES TECHNICIAN Location of INR sample : Lab Lab [...] will trynoted dose called to mom Fabiola [phone] called to Fabiola/no changes Called to mother/Fabiola, not awareof any changes Recommend Recheck : One week One week Two weeks Two weeks Plan completed by : WALI DAVISON RN - 08/06/2015 15:51 WALI HARDWICK RN - 08/06/2015 15:51 FINANCIAL SERVICES TECHNICIAN WALI ZAPATA RN - 08/06/2015 15:51 WALI HARDWICK RN - 08/06/2015 15:51 FINANCIAL SERVICES TECHNICIAN Date : 06/03/2014 FINANCIAL SERVICES TECHNICIAN 06/05/2014 FINANCIAL SERVICES TECHNICIAN 06/10/2014 FINANCIAL SERVICES TECHNICIAN 06/11/2014 FINANCIAL SERVICES TECHNICIAN Location of INR sample : Lab Type [...] Fabiola granados. Hue will be staying in [place] 2wks post-surgery & have INR drawn there. [...] Other: 06/13/14 Plan completed by : WALI FONTAINE RN - 08/06/2015 15:51 FINANCIAL SERVICES TECHNICIAN WALI ZAPATA RN - 08/06/2015 15:51 WALI HARDWICK RN - 08/06/2015 15:51 WALI HARDWICK RN - 08/06/2015 15:51 FINANCIAL SERVICES TECHNICIAN Date : 06/14/2014 FINANCIAL SERVICES TECHNICIAN 06/14/2014 FINANCIAL SERVICES TECHNICIAN 06/16/2014 FINANCIAL SERVICES TECHNICIAN 06/23/2014 FINANCIAL SERVICES TECHNICIAN Location of INR sample : Clinic Lab Lab Type of Sample : Venous Venous INR Result : 1.3 on 06/13 2.4 faxed from lab 2.0 Warfarin Dose : (pt took 2.5mg 06/13) 5mg Sat and 5mg Sun (06/14 and 06/15) 5mg Mon and 2.5mg all other days 5mg Mon and 2.5mg all other days Total Weekly Warfarin Dose : 20 20 Comment : [place] lab called with INR result from 06/13, reported they left a message with Dr. Henriquez and hadn't heard back, spoke with mother, Fabiola, and gave doses, continue Lovenox and repeat INR 06/16, message left with INR clinic in to contact CF Please contact [place] lab on 06/16 for result and may call Fabiola at [phone] with instructions call to Fabiola/will stop Lovenox injections and take noted dose/pt has an appt here in [place] 06/23 so will do lab appt here that day Called to Fabiola/ Hue will be back at [facility] by next draw. will have done on . no changes to meds/diet. Recommend Recheck : Two days One week Two weeks Plan completed by : latasha OZZY WALI MONTANO RN - 08/06/2015 15:51 FINANCIAL SERVICES TECHNICIAN WALI ZAPATA RN - 08/06/2015 15:51 WALI HARDWICK RN - 08/06/2015 15:51 WALI HARDWICK RN - 08/06/2015 15:51 FINANCIAL SERVICES TECHNICIAN Date : 07/10/2014 FINANCIAL SERVICES TECHNICIAN 07/17/2014 FINANCIAL SERVICES TECHNICIAN 07/31/2014 FINANCIAL SERVICES TECHNICIAN 09/11/2014 CDT Location of INR sample : [...] Two weeks Plan completed by : WALI Bryson RN - 08/06/2015 15:51 FINANCIAL SERVICES TECHNICIAN WALI ZAPATA RN - 08/06/2015 15:51 WALI HARDWICK RN - 08/06/2015 15:51 WALI HARDWICK RN - 08/06/2015 15:51 FINANCIAL SERVICES TECHNICIAN Date : 09/12/2014 CDT 09/25/2014 CDT 10/02/2014 [...] Two weeks Plan completed by : WALI Lopez RN - 08/06/2015 15:51 WALI HARDWICK RN - 08/06/2015 15:51 WALI HARDWICK RN - 08/06/2015 15:51 WALI HARDWICK RN - 08/06/2015 15:51 FINANCIAL SERVICES TECHNICIAN Date : 10/23/2014 CDT 11/13/2014 CDT 11/20/2014 [...] change is 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/no bleeding/consult with Quintin/Pharmacy and called Mom with orders Per Meredith Hernandez, no changes, has been drinking some Kiwi Juice, no bleeding/consult with Quintin/Pharmacy Called to mom /Fabiola, no changes, [facility] Recommend Recheck : Three weeks One week One week One week Plan completed by : WALI Jeffery RN - 08/06/2015 15:51 FINANCIAL SERVICES TECHNICIAN WALI ZAPATA RN - 08/06/2015 15:51 FINANCIAL SERVICES TECHNICIAN WALI ZAPATA RN - 08/06/2015 15:51 WALI HARDWICK RN - 08/06/2015 15:51 FINANCIAL SERVICES TECHNICIAN Date : 12/04/2014 CDT 12/18/2014 CDT 01/15/2015 [...] Two weeks Plan completed by : WALI Boss RN - 08/06/2015 15:51 FINANCIAL SERVICES TECHNICIAN WALI ZAPATA RN - 08/06/2015 15:51 FINANCIAL SERVICES TECHNICIAN WALI ZAPATA RN - 08/06/2015 15:51 FINANCIAL SERVICES TECHNICIAN WALI ZAPATA RN - 08/06/2015 15:51 FINANCIAL SERVICES TECHNICIAN Date : 02/05/2015 CDT 02/26/2015 CDT 03/05/2015 [...] Three weeks Plan completed by : WALI HAAS RN - 08/06/2015 15:51 FINANCIAL SERVICES TECHNICIAN WALI ZAPATA RN - 08/06/2015 15:51 FINANCIAL SERVICES TECHNICIAN WALI ZAPATA RN - 08/06/2015 15:51 FINANCIAL SERVICES TECHNICIAN WALI ZAPATA RN - 08/06/2015 15:51 FINANCIAL SERVICES TECHNICIAN Date : 04/09/2015 CDT 05/07/2015 FINANCIAL SERVICES TECHNICIAN 06/04/2015 FINANCIAL SERVICES TECHNICIAN 07/02/2015 FINANCIAL SERVICES TECHNICIAN Location of INR sample : Lab Lab [...] 5 weeks Plan completed by : darya lackey JM WALI CARSON RN - 08/06/2015 15:51 FINANCIAL SERVICES TECHNICIAN WALI ZAPATA RN - 08/06/2015 15:51 FINANCIAL SERVICES TECHNICIAN WALI ZAPATA RN - 08/06/2015 15:51 FINANCIAL SERVICES TECHNICIAN WALI ZAPATA RN - 08/06/2015 15:51 FINANCIAL SERVICES TECHNICIAN Date : 08/06/2015 FINANCIAL SERVICES TECHNICIAN Location of INR sample : Lab Type of Sample : Venous INR Result : 2.7 Warfarin Dose : 5mg Mon/Thurs and 2.5mg all other days Total Weekly Warfarin Dose : 22.5 Comment : Orders called to Fabiola/mother. No changes. Recommend Recheck : Six weeks Plan completed by : WALI CARSON RN - 08/06/2015 15:51 FINANCIAL SERVICES TECHNICIAN Source: [facility] POWERCHART Document Id: [id number] FINANCIAL SERVICES TECHNICIAN!462 NCIAL SERVICES TECHNICIAN Miscellaneous - Wali Zapata R.N. - 08/06/2015 9:37 AM CST Anticoagulation Patient Intake Anticoagulation Patient Intake Entered On: 08/06/2015 9:39 FINANCIAL SERVICES TECHNICIAN Performed On: 08/06/2015 9:37 FINANCIAL SERVICES TECHNICIAN by WALI ZAPATA RN Plan INR goal range : 2.0 - 3.0 Duration of Therapy : Lifelong Tablet Size : 3 mg, 5 mg WALI ZAPATA RN - 08/06/2015 9:37 FINANCIAL SERVICES TECHNICIAN Anticoagulation Management Plan Grid Date : 09/05/2013 [...] completed by : darya BURGESS JM WALI Cortez RN - 08/06/2015 9:37 FINANCIAL SERVICES TECHNICIAN WALI ZAPATA RN - 08/06/2015 9:37 FINANCIAL SERVICES TECHNICIAN WALI ZAPATA RN - 08/06/2015 9:37 FINANCIAL SERVICES TECHNICIAN WALI ZAPATA RN - 08/06/2015 9:37 FINANCIAL SERVICES TECHNICIAN Date : 12/26/2013 CDT 01/30/2014 CDT 03/06/2014 [...] Other: 03/20/14 Plan completed by : WALI Chau RN - 08/06/2015 9:37 FINANCIAL SERVICES TECHNICIAN WALI ZAPATA RN - 08/06/2015 9:37 FINANCIAL SERVICES TECHNICIAN AWLI ZAPATA RN - 08/06/2015 9:37 FINANCIAL SERVICES TECHNICIAN WALI ZAPATA RN - 08/06/2015 9:37 FINANCIAL SERVICES TECHNICIAN Date : 03/20/2014 CDT 03/27/2014 CDT 04/10/2014 [...] Other: Plan completed by : darya lackey [facility]/pharmacy WALI ZAPATA RN - 08/06/2015 9:37 FINANCIAL SERVICES TECHNICIAN WALI ZAPATA RN - 08/06/2015 9:37 FINANCIAL SERVICES TECHNICIAN WALI ZAPATA RN - 08/06/2015 9:37 FINANCIAL SERVICES TECHNICIAN WALI ZAPATA RN - 08/06/2015 9:37 FINANCIAL SERVICES TECHNICIAN Date : 04/17/2014 CDT 04/24/2014 CDT 05/01/2014 FINANCIAL SERVICES TECHNICIAN 05/15/2014 FINANCIAL SERVICES TECHNICIAN Location of INR sample : Lab Lab [...] will trynoted dose called to mom Fabiola [phone] called to Fabiola/no changes Called to mother/Fabiola, not awareof any changes Recommend Recheck : One week One week Two weeks Two weeks Plan completed by : WALI DAVISON RN - 08/06/2015 9:37 WALI HARDWICK RN - 08/06/2015 9:37 FINANCIAL SERVICES TECHNICIAN WALI ZAPATA RN - 08/06/2015 9:37 FINANCIAL SERVICES TECHNICIAN WALI ZAPATA RN - 08/06/2015 9:37 FINANCIAL SERVICES TECHNICIAN Date : 06/03/2014 FINANCIAL SERVICES TECHNICIAN 06/05/2014 FINANCIAL SERVICES TECHNICIAN 06/10/2014 FINANCIAL SERVICES TECHNICIAN 06/11/2014 FINANCIAL SERVICES TECHNICIAN Location of INR sample : Lab Type [...] Fabiola granados. Hue will be staying in [place] 2wks post-surgery & have INR drawn there. [...] lovenox tomorrow AM as ordered. INR in [place] for next several weeks as pt will be recovering there. Recommend Recheck : Other: depending on Dr. Henriquez's preop. Other: 06/18 Other: 06/13/14 Plan completed by : WALI FONTAINE RN - 08/06/2015 9:37 FINANCIAL SERVICES TECHNICIAN WALI ZAPATA RN - 08/06/2015 9:37 FINANCIAL SERVICES TECHNICIAN WALI ZAPATA RN - 08/06/2015 9:37 FINANCIAL SERVICES TECHNICIAN WALI ZAPATA RN - 08/06/2015 9:37 FINANCIAL SERVICES TECHNICIAN Date : 06/14/2014 FINANCIAL SERVICES TECHNICIAN 06/14/2014 FINANCIAL SERVICES TECHNICIAN 06/16/2014 FINANCIAL SERVICES TECHNICIAN 06/23/2014 FINANCIAL SERVICES TECHNICIAN Location of INR sample : Clinic Lab Lab Type of Sample : Venous Venous INR Result : 1.3 on 06/13 2.4 faxed from lab 2.0 Warfarin Dose : (pt took 2.5mg 06/13) 5mg Sat and 5mg Sun (06/14 and 06/15) 5mg Mon and 2.5mg all other days 5mg Mon and 2.5mg all other days Total Weekly Warfarin Dose : 20 20 Comment : [place] lab called with INR result from 06/13, reported they left a message with Dr. Henriquez and hadn't heard back, spoke with mother, Fabiola, and gave doses, continue Lovenox and repeat INR 06/16, message left with INR clinic in to contact CF Please contact [place] lab on 06/16 for result and may call Fabiola at [phone] with instructions call to Fabiola/will stop Lovenox injections and take noted dose/pt has an appt here in 06/23 so will do lab appt here that day Called to Fabiola/ Hue will be back at [facility] by next draw. will have done on . no changes to meds/diet. Recommend Recheck : Two days One week Two weeks Plan completed by : WALI Seniro LM RN - 08/06/2015 9:37 FINANCIAL SERVICES TECHNICIAN WALI ZAPATA RN - 08/06/2015 9:37 FINANCIAL SERVICES TECHNICIAN WALI ZAPATA RN - 08/06/2015 9:37 FINANCIAL SERVICES TECHNICIAN WALI ZAPATA RN - 08/06/2015 9:37 FINANCIAL SERVICES TECHNICIAN Date : 07/10/2014 FINANCIAL SERVICES TECHNICIAN 07/17/2014 FINANCIAL SERVICES TECHNICIAN 07/31/2014 FINANCIAL SERVICES TECHNICIAN 09/11/2014 CDT Location of INR sample : [...] Two weeks Plan completed by : WALI Bryson RN - 08/06/2015 9:37 FINANCIAL SERVICES TECHNICIAN WALI ZAPATA RN - 08/06/2015 9:37 FINANCIAL SERVICES TECHNICIAN WALI ZAPATA RN - 08/06/2015 9:37 WALI HARDWICK RN - 08/06/2015 9:37 FINANCIAL SERVICES TECHNICIAN Date : 09/12/2014 CDT 09/25/2014 CDT 10/02/2014 [...] Two weeks Plan completed by : WALI Lopez RN - 08/06/2015 9:37 FINANCIAL SERVICES TECHNICIAN WALI ZAPATA RN - 08/06/2015 9:37 FINANCIAL SERVICES TECHNICIAN WALI ZAPATA RN - 08/06/2015 9:37 FINANCIAL SERVICES TECHNICIAN WALI ZAPATA RN - 08/06/2015 9:37 FINANCIAL SERVICES TECHNICIAN Date : 10/23/2014 CDT 11/13/2014 CDT 11/20/2014 [...] called to Mom/Fabiola, no changes called to David Fabiola, 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/no bleeding/consult with Quintin/Pharmacy and called Mom with orders Per Meredith Hernandez, no changes, has been drinking some Kiwi Juice, no bleeding/consult with Quintin/Pharmacy Called to mom /Fabiola, no changes, rev'd w/[facility]/Pharmacy Recommend Recheck : Three weeks One week One week One week Plan completed by : WALI Jeffery RN - 08/06/2015 9:37 FINANCIAL SERVICES TECHNICIAN WALI ZAPATA RN - 08/06/2015 9:37 FINANCIAL SERVICES TECHNICIAN WALI ZAPATA RN - 08/06/2015 9:37 FINANCIAL SERVICES TECHNICIAN WALI ZAPATA RN - 08/06/2015 9:37 FINANCIAL SERVICES TECHNICIAN Date : 12/04/2014 CDT 12/18/2014 CDT 01/15/2015 [...] Two weeks Plan completed by : WALI Boss RN - 08/06/2015 9:37 FINANCIAL SERVICES TECHNICIAN WALI ZAPATA RN - 08/06/2015 9:37 FINANCIAL SERVICES TECHNICIAN WALI ZAPATA RN - 08/06/2015 9:37 FINANCIAL SERVICES TECHNICIAN WALI ZAPATA RN - 08/06/2015 9:37 FINANCIAL SERVICES TECHNICIAN Date : 02/05/2015 CDT 02/26/2015 CDT 03/05/2015 [...] Three weeks Plan completed by : WALI HAAS RN - 08/06/2015 9:37 FINANCIAL SERVICES TECHNICIAN WALI ZAPATA RN - 08/06/2015 9:37 FINANCIAL SERVICES TECHNICIAN WALI ZAPATA RN - 08/06/2015 9:37 FINANCIAL SERVICES TECHNICIAN WALI ZAPATA RN - 08/06/2015 9:37 FINANCIAL SERVICES TECHNICIAN Date : 04/09/2015 CDT 05/07/2015 FINANCIAL SERVICES TECHNICIAN 06/04/2015 FINANCIAL SERVICES TECHNICIAN 07/02/2015 FINANCIAL SERVICES TECHNICIAN Location of INR sample : Lab Lab [...] 5 weeks Plan completed by : WALI Chavez RN - 08/06/2015 9:37 FINANCIAL SERVICES TECHNICIAN WALI ZAPATA RN - 08/06/2015 9:37 FINANCIAL SERVICES TECHNICIAN WALI ZAPATA RN - 08/06/2015 9:37 FINANCIAL SERVICES TECHNICIAN WALI ZAPATA RN - 08/06/2015 9:37 FINANCIAL SERVICES TECHNICIAN Date : 08/06/2015 FINANCIAL SERVICES TECHNICIAN Location of INR sample : Lab Type of Sample : Venous INR Result : 2.7 Warfarin Dose : 5mg Mon/Thurs and 2.5mg all other days Total Weekly Warfarin Dose : 22.5 Comment : Orders called to Fabiola/mother. No changes. 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 - 08/06/2015 9:12 AM CST Results Notification Document Contains Addenda Addendum by WALI ZAPATA RN on 06 August 2015 09:40:36 FINANCIAL SERVICES TECHNICIAN orders called to patient's mother. From: WALI ZAPATA RN ( Anticoagulation Nurse) To: Anticoagulation Nurse; Sent: 08/06/2015 09:12:48 FINANCIAL SERVICES TECHNICIAN Show up: 08/06/2015 09:13:00 FINANCIAL SERVICES TECHNICIAN Subject: Results Notification Results: Date Result Name Value Ref Range 08/06/2015 08:00 PT 30.9 second(s) 08/06/2015 08:00 INR 2.7 INR (0.8 - 1.1) Source: [facility] AdomikCHART Document Id: [id number] Electronically signed by Conversion, [facility] Developer Advocate [id number] at 11/19/2016 9:34 AM CDT documented in this encounter Plan of Treatment Not on filedocumented as of this encounter Procedures Procedure Name Priority Date/Time Associated Comments Diagnosis PROTHROMBIN TIME Routine 08/06/2015 8:00 AM Resul ts for this (PT), P FINANCIAL SERVICES TECHNICIAN procedure are i n the results section. documented in this encounter Results (ABNORMAL) PT (Prothrombin Time) with INR (08/06/2015 8:00 AM FINANCIAL SERVICES TECHNICIAN) [facility] Method Time Signature Prothrombin 30.9 SECONDS POWERCHART Time, P INR 2.7 (H) [...] Time Location / / Volume Laterality Blood 08/06/2015 8:00 AM FINANCIAL SERVICES TECHNICIAN Tasha Henriquez M.D. LAB BLOOD ADD-ON Performing Organization Address City/State/ZIP Code Phon e Number POWERCHART documented in this encounter Visit Diagnoses Not on filedocumented in this encounter
--- OUTSIDE RECORDS SUMMARY | 2022-04-25 16:02 | XMS_ITS | Encounter Summary ---
:1975 Author Organization [facility] Address [address] [place] [id number] Care Team Providers Name Role Phone Unavailable Primary Care Provider Unavailable Encounter Details Date Type Department Care Team Description 11/28/2014 Hospital Encounter HX [facility] Sridhar Galicia M.D. [address] [place], [place] [address] (Wo rk) Social History [...] - - Height 147 cm (4' 9.87) 11/28/2014 3:15 PM CDT Body Mass Index - - documented in this encounter Medications at Time of Discharge Medication Sig Dispensed Refills Start Date End Date multivitamin tablet Take 2 tablets by 0 3 mouth daily. FLUORIDE, SODIUM, Apply 1 application 0 3 12/31/2019 DENTAL topically 2 (two) times a day. documented as of this encounter Miscellaneous Notes Miscellaneous - Conversion, Historical Provider Ser - 11/28/2014 11:59 PM CDT Coding Summary-Paper Based CODING DATE: 12/03/2014 FINAL [facility] STATUS: * Discharged to Home or Self Care PAYOR: Medicare Advantage ADMIT DX: V76.11 Screening Mammogram for High-Risk Patient REASON FOR VISIT DX: V76.11 Screening Mammogram for High-Risk Patient FINAL DX: PRINCIPAL: V76.11 Screening Mammogram for High-Risk Patient SECONDARY: V15.89 Other Specified Personal History Presenting Hazards to Health PROCEDURES DOCTOR NAME DATE NOTE: The code number assigned matches the documented diagnosis and / or procedure in the patient's chart. However, the narrative phrase printed from the coding software may appear abbreviated, or result in slightly different terminology. Coded By: ENID TAY Date Saved: 12/03/2014 08:53 am [facility] Document Id: [id number] documented in this encounter Plan of Treatment Not on filedocumented as of this encounter Visit Diagnoses Not on filedocumented in this encounter
--- OUTSIDE RECORDS SUMMARY | 2022-04-25 16:02 | XMS_ITS | Encounter Summary ---
:1975 Author Organization [facility] Address [address] [place] [address] Care Team Providers Name Role Phone Unavailable Primary Care Provider Unavailable Encounter Details Date Type Department Care Team Description 01/28/2016 Hospital En[facility] Marsha Henriquez M.D. [address] [place], [place] [address] (Wo rk) Social History [...] - - Height 147 cm (4' 9.87) 01/28/2016 6:01 AM CDT Body Mass Index - - documented in this encounter Medications at Time of Discharge Medication Sig Dispensed Refills Start Date End Date multivitamin tablet Take 2 tablets by 0 3 mouth daily. FLUORIDE, SODIUM, Apply 1 application 0 3 12/31/2019 DENTAL topically 2 (two) times a day. documented as of this encounter Miscellaneous Notes Miscellaneous - Wali Mcclellan - 01/28/2016 11:43 AM CDT Anticoagulation Patient Intake Anticoagulation Patient Intake Entered On: 01/28/2016 11:49 CDT Performed On: 01/28/2016 11:43 CDT by WALI MCCLELLAN RN Plan INR goal range : 2.0 - 3.0 Duration of Therapy : Lifelong Tablet Size : 5 mg WALI MCCLELLAN RN - 01/28/2016 11:43 CDT Anticoagulation Management Plan Grid Date [...] darya BURGESS JM WALI Ervin RN - 01/28/2016 11:43 CDT WALI MCCLELLAN RN - 01/28/2016 11:43 CDT WALI MCCLELLAN RN - 01/28/2016 11:43 CDT WALI MCCLELLAN RN - 01/28/2016 11:43 CDT Date : 12/26/2013 CDT 01/30/2014 [...] Comment : called to Fabiola called to Fabiloa called to Fabiola, no changes, did have a pimple a couple ofweeks ago that bled for a long time, no bleeding [place] [facility] [place]call if changes Recommend Recheck : Other: 5 weeks Other: 5 weeks Other: 03/10/2014 Other: 03/20/14 Plan completed by : WALI Davidson RN - 01/28/2016 11:43 CDT WALI MCCLELLAN RN - 01/28/2016 11:43 CDT WALI MCCLELLAN RN - 01/28/2016 11:43 CDT WALI MCCLELLAN RN - 01/28/2016 11:43 CDT Date : 03/20/2014 CDT 03/27/2014 [...] Other: Plan completed by : darya lackey [facility]/pharmacy WALI MCCLELLAN RN - 01/28/2016 11:43 CDT WALI MCCLELLAN RN - 01/28/2016 11:43 CDT WALI MCCLELLAN RN - 01/28/2016 11:43 CDT WALI MCCLELLAN RN - 01/28/2016 11:43 CDT Date : 04/17/2014 CDT 04/24/2014 CDT 05/01/2014 LOGISTICS SOLUTION MANAGER 05/15/2014 LOGISTICS SOLUTION MANAGER Location of INR sample : Lab [...] will trynoted dose called to mom Fabiola [phone] called to Fabiola/no changes Called to mother/Fabiola, not awareof any changes Recommend Recheck : One week One week Two weeks Two weeks Plan completed by : WALI CHOI RN - 01/28/2016 11:43 CDT WALI MCCLELLAN RN - 01/28/2016 11:43 CDT WALI MCCLELLAN RN - 01/28/2016 11:43 CDT WALI MCCLELLAN RN - 01/28/2016 11:43 CDT Date : 06/03/2014 LOGISTICS SOLUTION MANAGER 06/05/2014 LOGISTICS SOLUTION MANAGER 06/10/2014 LOGISTICS SOLUTION MANAGER 06/11/2014 LOGISTICS SOLUTION MANAGER Location of INR sample : Lab [...] Fabiola granados. Hue will be staying in [place] 2wks post-surgery & have INR drawn there. [...] completed by : WALI TYLER RN - 01/28/2016 11:43 CDT WALI MCCLELLAN RN - 01/28/2016 11:43 CDT WALI MCCLELLAN RN - 01/28/2016 11:43 CDT WALI MCCLELLAN RN - 01/28/2016 11:43 CDT Date : 06/14/2014 LOGISTICS SOLUTION MANAGER 06/14/2014 LOGISTICS SOLUTION MANAGER 06/16/2014 LOGISTICS SOLUTION MANAGER 06/23/2014 LOGISTICS SOLUTION MANAGER Location of INR sample : Clinic [...] Warfarin Dose : 20 20 Comment : [place] lab called with INR result from 06/13, reported they left a message with Dr. Henriquez and hadn't heard back, spoke with mother, Fabiola, and gave doses, continue Lovenox and repeat INR 06/16, message left with INR clinic in to contact CF Please contact [facility] on 06/16 for result and may call Fabiola at [phone] with instructions call to Fabiola/will stop Lovenox injections and take noted dose/pt has an appt here in [place] 06/23 so will do lab appt here that day Called to Fabiola/ Hue will be back at [facility] [place] draw. will have done on . no changes to meds/diet. Recommend Recheck : Two days One week Two weeks Plan completed by : WALI Steven LM, RN - 01/28/2016 11:43 CDT WALI MCCLELLAN RN - 01/28/2016 11:43 CDT WALI MCCLELLAN RN - 01/28/2016 11:43 CDT WALI MCCLELLAN RN - 01/28/2016 11:43 CDT Date : 07/10/2014 LOGISTICS SOLUTION MANAGER 07/17/2014 LOGISTICS SOLUTION MANAGER 07/31/2014 LOGISTICS SOLUTION MANAGER 09/11/2014 CDT Location of INR sample [...] completed by : WALI Yarbrough RN - 01/28/2016 11:43 CDT WALI MCCLELLAN RN - 01/28/2016 11:43 CDT WALI MCCLELLAN RN - 01/28/2016 11:43 CDT WALI MCCLELLAN RN - 01/28/2016 11:43 CDT Date : 09/12/2014 CDT 09/25/2014 [...] completed by : WALI Almaguer RN - 01/28/2016 11:43 CDT WALI MCCLELLAN RN - 01/28/2016 11:43 CDT WALI MCCLELLAN RN - 01/28/2016 11:43 CDT WALI MCCLELLAN RN - 01/28/2016 11:43 CDT Date : 10/23/2014 CDT 11/13/2014 [...] change is she is exercising alot for [employer]/no bleeding/consult with Quintin/Pharmacy and called Mom with orders Per Meredith Hernandez, no changes, has been drinking some Kiwi Juice, no bleeding/consult with Quintin/Pharmacy Called to mom /Fabiola, no changes, [facility] Recommend Recheck : Three weeks One week One week One week Plan completed by : WALI Skinner RN - 01/28/2016 11:43 CDT WALI MCCLELLAN RN - 01/28/2016 11:43 CDT WALI MCCLELLAN RN - 01/28/2016 11:43 CDT WALI MCCLELLAN RN - 01/28/2016 11:43 CDT Date : 12/04/2014 CDT 12/18/2014 [...] completed by : WALI Cabrera RN - 01/28/2016 11:43 CDT WALI MCCLELLAN RN - 01/28/2016 11:43 CDT WALI MCCLELLAN RN - 01/28/2016 11:43 CDT WALI MCCLELLAN RN - 01/28/2016 11:43 CDT Date : 02/05/2015 CDT 02/26/2015 [...] completed by : WALI LAWRENCE RN - 01/28/2016 11:43 CDT WALI MCCLELLAN RN - 01/28/2016 11:43 CDT WALI MCCLELLAN RN - 01/28/2016 11:43 CDT WALI MCCLELLAN RN - 01/28/2016 11:43 CDT Date : 04/09/2015 CDT 05/07/2015 LOGISTICS SOLUTION MANAGER 06/04/2015 LOGISTICS SOLUTION MANAGER 07/02/2015 LOGISTICS SOLUTION MANAGER Location of INR sample : Lab [...] completed by : WALI Nelson RN - 01/28/2016 11:43 CDT WALI MCCLELLAN RN - 01/28/2016 11:43 CDT WALI MCCLELLAN RN - 01/28/2016 11:43 CDT WALI MCCLELLAN RN - 01/28/2016 11:43 CDT Date : 08/06/2015 LOGISTICS SOLUTION MANAGER 09/17/2015 CDT 10/29/2015 CDT 11/12/2015 CDT [...] completed by : WALI Toussaint RN - 01/28/2016 11:43 CDT WALI MCCLELLAN RN - 01/28/2016 11:43 CDT WALI MCCLELLAN RN - 01/28/2016 11:43 CDT WALI MCCLELLAN RN - 01/28/2016 11:43 CDT Date : 11/19/2015 CDT 12/03/2015 [...] completed by : WALI Will RN - 01/28/2016 11:43 CDT WALI MCCLELLAN RN - 01/28/2016 11:43 CDT WALI MCCLELLAN RN - 01/28/2016 11:43 CDT WALI MCCLELLAN RN - 01/28/2016 11:43 CDT Anticoagulation Assessment / History Visit : Phone management Plan of Care Date : 01/29/2008 CDT Primary Physician Anticoagulation : TASHA HENRIQUEZ MD 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 : DVT Lower, Other: Deep Phlebitis-Leg NEC CHADS2 Score Date : 09/05/2013 CDT WALI MCCLELLAN RN - 01/28/2016 11:43 CDT Changes / Problems Changes/Problems Since Last Visit : None Been Scheduled For : None Missed Coumadin Doses : None Change In Intake : None Change In Medication : None Have You Had : None Plans to Travel : No WALI MCCLELLAN RN - 01/28/2016 11:43 CDT [facility] Document Id: [id number] CDT!547 Miscellaneous - Khadar Banda R.N. - 01/28/2016 9:23 AM CDT Results Notification Document Contains Addenda Addendum by WALI MCCLELLAN RN on January 28, 2016 11:53:02 CDT Orders called to Mother/Fabiola. From: KHADAR BANDA RN ( Anticoagulation Nurse) To: Anticoagulation Nurse; Sent: 01/28/2016 09:23:42 CDT Show up: 01/28/2016 09:24:00 CDT Subject: Results Notification Results: Date Result Name Value Ref Range 01/28/2016 08:05 PT 27.5 second(s) (8.7 - 11.8) 01/28/2016 08:05 INR 2.5 INR (0.9 - 1.1) Source: [facility] [employer] Document Id: [id number] documented in this encounter Plan of Treatment Not on filedocumented as of this encounter Procedures Procedure Name Priority Date/Time Associated Comments Diagnosis PROTHROMBIN TIME Routine 01/28/2016 8:05 AM Resul ts for this (PT), P CDT procedure are i n the results section. documented in this encounter Results (ABNORMAL) PT (Prothrombin Time) with INR (01/28/2016 8:05 AM CDT) [facility] Method Time Signature Prothrombin 27.5 (H) 8.7 - 11.8 POWERCHART Time, P SECONDS INR 2.5 (H) 0.9 - 1.1 POWERCHART INR Comment: Recommended INR for prophylaxis/treatmen t of Venous Thrombosis, Pulmonary Embolism, Myocardial Infarction, and Embolism from Atrial Fibrillation is 2.0- 3.0 (Standard Therapy) Recommended INR for Mechanical Heart Tejal ves and recurrent Systemic Embolism is 2.5-3.5 (Intensive Therapy) Specimen (Source) Anatomical Collection Method Collection Time Re ceived Time Location / / Volume Laterality Blood 01/28/2016 8:05 AM CDT Tasha Henriquez M.D. LAB BLOOD ADD-ON Performing Organization Address City/State/ZIP Code Phon e Number POWERCHART documented in this encounter Visit Diagnoses Not on filedocumented in this encounter
--- OUTSIDE RECORDS SUMMARY | 2022-04-25 16:02 | XMS_ITS | Encounter Summary ---
:1975 Author Organization [facility] Address [address] [place] [id number] Care Team Providers Name Role Phone Unavailable Primary Care Provider Unavailable Encounter Details Date Type Department Care Team Description 02/08/2016 Hospital Encounter [facility] Marsha Henriquez M.D. [address] [place], [place] [address] (Wo rk) Social History Tobacco Use Types Packs/Day Years Used Date Smoking Tobacco: Never Assessed Sex Assigned at Date Recorded Not on file documented as of this encounter Last Filed Vital Signs Vital Sign Reading Time Taken Comments Blood Pressure 100/62 02/08/2016 4:20 PM CDT Pulse 60 02/08/2016 4:20 PM CDT Temperature - - Respiratory Rate - - Oxygen Saturation - - Inhaled Oxygen Concentration - - Weight 85.6 kg (188 lb 11.4 oz) 02/08/2016 4:20 PM CDT Height 148 cm (4' 10.27) 02/08/2016 4:20 PM CDT Body Mass Index 39.08 02/08/2016 4:20 PM CDT documented in this encounter Medications at Time of Discharge Medication Sig Dispensed Refills Start Date End Date multivitamin tablet Take 2 tablets by 0 3 mouth daily. FLUORIDE, SODIUM, Apply 1 application 0 3 12/31/2019 DENTAL topically 2 (two) times a day. documented as of this encounter H&P Notes Tasha Henriquez M.D. - 02/08/2016 5:19 PM CDT Free Text Note MEDICATIONS Reviewed. ALLERGIES Reviewed. PAST MEDICAL/SURGICAL HISTORY Reviewed. SOCIAL HISTORY Reviewed. FAMILY HISTORY Reviewed. SYSTEMS REVIEW GENERAL: Negative except for [...] BREASTS: Normal. PELVIC: She declines. IMPRESSION/REPORT/PLAN 1. annual physical. 2. History of mild elevation of her TSH, but no Mary Ann's. 3. Hyperlipidemia, diet controlled. 4. History of mild hyperglycemia. 5. Cerumen impaction, cleared with ear wash. 6. History of psoriasis. 7. History of venous stasis edema. 8. 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 9. amenorrhea- see gyne PLAN: she will get labs with her next inr draw at [facility]. send letter with results. mom wants to prevent DM with wt loss. Otherwise, continue Kenalog as needed for her psoriasis. She will continue her efforts with diet and exercise. Otherwise, continue Coumadin lifelong and should use her Jobst stockings for her mild edema. Followup 1 year and as needed. Tasha Henriquez M.D. Dorita presents today for a physical. She gets wax in her ears and no pain. Also, apparently, has some history of psoriasis. According toher mother, she has a history of this. She uses Kenalog cream as needed. She has a history of deep vein thrombosis and protein S deficiency, and saw Dr. Liv Riley. She is on lifelong Coumadin. Also has a history of hyperlipidemia and hyperglycemia. She was seen for a ACTIVITIES DIRECTOR SCOUTING visit in the past and had a mild elevation of her TSH and normal free T4. Antibodies were checked and were negative, so she does not have Mary Ann's thyroiditis. No further recheck necessary. but since she has wt gain that her mom is concerned about will check another tsh. Her hyperlipidemia is diet controlled. She had heart surgery at [facility] on March 29, 2013. no period for 6 months. Electronically Signed By: TASHA HENRIQUEZ MD On: 02/08/2016 05:24 PM Source: [employer] Document Id: [id number] documented in this encounter Procedure Notes Amalia Chenug L.P.N. - 02/08/2016 5:22 PM CDT Ear Irrigation Ear Irrigation Entered On: 02/08/2016 17:23 CDT Performed On: 02/08/2016 17:22 CDT by AMALIA CHEUNG L.P.N. Ear Irrigation Ear Irrigation Location : Bilateral Ear Irrigation Technique Used : Ear washer Ear Irrigation Solution Used : Warm water Ear Irrigation Results : large amounts ear cerumen cleaned out of left ear, moderate amount of rightear Post irrigation ear canal evaluation : Patent Post Irrigation Tympanic Membrane Eval : Intact AMALIA CHEUNG L.P.NMichael - 02/08/2016 17:22 CDT Source: [employer] Document Id: [id number] CDT!8 documented in this encounter Miscellaneous Notes Miscellaneous - Tasha Henriquez M.D. - 02/08/2016 5:17 PM CDT Ambulatory Discharge Medication List [facility] [address], [address] [place], [place] [id number] Visit Information Name: DORITA SHEFFIELD [facility] Number: [id number] Visit Date: 02/08/2016 17:17:21 Attending Provider: TASHA HENRIQUEZ MD Primary Care [...] by the INR Clinic as of 12/30/2015 [address] to [address] [id number] Stop Taking the Following Medications: Medication list as of 02-08-16 17:17 Attention: If you have any medications at [...] Electronically Signed By: TASHA HENRIQUEZ MD Signed On:08-FEB-2016 17:17:19 Additional Information: Source: [facility] POWERCHART Document Id: [id number] Miscellaneous - Tasha Henriquez M.D. - 02/08/2016 5:17 PM CDT Ambulatory Patient Summary [facility] [address], [address] [place], [place] [id number] Visit Information Name: DORITA SHEFFIELD [facility] Number: [id number] Current Date: 02/08/2016 17:17:22 Physicians Attending Provider: TASHA HENRIQUEZ MD Primary [...] by the INR Clinic as of 12/30/2015 Routed to [address] [id number] Stop Taking the Following Medications: Medication list as of 02-08-16 17:17 Attention: If you have any medications at [...] Electronically Signed By: TASHA HENRIQUEZ MD Signed On:08-FEB-2016 17:17:19 Your Allergies & Intolerances Substance Reaction Symptoms [...] Your Upcoming Appointments Date Time Location Provider 02/25/2016 08:00 [facility] Offsite Attention: Contact your local [...] if you dont have one. Go to [email or web address] and click on Create Your Account. Then, follow the directions to complete the online form. Youll be asked for your [facility] number which you can find at the top of this document. Your Goals/Additional instructions: Source: [facility] POWERCHART Document Id: [id number] Miscellaneous - Shruti Raman, L.P.N. - 02/08/2016 4:28 PM CDT Health Assessment Health Assessment Entered On: 02/08/2016 16:30 CDT Performed On: 02/08/2016 16:28 CDT by SHRUTI RAMAN [facility] Health Assessment Complete Health Assessment Complete or Modified : Annual Health Assessment Annual Health Assessment Completed : Yes SHRUTI RAMAN LPN - 02/08/2016 16:28 CDT Nutrition Nutrition Risk Factors by History Adult : None SHRUTI RAMAN LPN - 02/08/2016 16:28 CDT Functional Current Daily Living Assistance : Transportation SHRUTI RAMAN LPN - 02/08/2016 16:28 CDT Dependent Habits Exposure to Tobacco Smoke : Other: never smoker Smoking Status : Never smoker Tobacco 2A : No Tobacco Use/Currently Using : No Tobacco Use/Last 30 Days : No Tobacco Use/Last 12 months : No Alcohol Use : No SHRUTI RAMAN LPN - 02/08/2016 16:28 CDT Caffeine Use Grid Caffeine Use : Current Type : Soft drinks Frequency : Occasionally Amount : pop SHRUTI RAMAN LPN - 02/08/2016 16:28 CDT Psychosocial Domestic Abuse Concerns : None Behavioral Health Screen/Safety Assmt : No Zoroastrianism Preference : No qualifying data available. 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 Oracle Applications Developer Intake/History Adult Oracle Applications Developer Intake/History Entered On: 02/08/2016 16:24 CDT Performed On: 02/08/2016 16:20 CDT by SHRUTI RAMAN LPN Intake Peripheral Pulse Rate : 60 /min Systolic Blood Pressure : 100 mmHg Diastolic Blood Pressure : 62 mmHg NIBP Mean : 75 mmHg SHRUTI RAMAN LPN - 02/08/2016 16:30 CDT Chief Complaint : annual check up ,ear cleaning, refill coumadin, (last period over 6 months) Temperature Core : 36.6 DegC(Converted to: 97.9 DegF) Height : 148 cm(Converted to: 4 ft 10 inch(es), 58 inch(es)) Actual Weight : 85.6 kg(Converted to: 188 lb 11 oz) Dosing Weight Clinic : 85.6 kg Clinic BSA : 1.88 Body Mass Index : 39.08 kg/m2 SHRUTI RAMAN LPN - 02/08/2016 16:20 CDT General Info Information Given By : Patient Languages : Equ[place] Is Patient Female and 13-50 no hysterectomy : Yes Status : Patient denies Are you ? : No SHRUTI RAMAN LPN - 02/08/2016 16:20 CDT Subjective Pain Symptoms : No SHRUTI RAMAN LPN - 02/08/2016 16:20 CDT Dependent Habits Exposure to Tobacco Smoke : Other: never smoker Smoking Status : Never smoker Tobacco 2A : No Tobacco Use/Currently Using : No Tobacco Use/Last 30 Days : No Tobacco Use/Last 12 months : No SHRUTI RAMAN LPN - 02/08/2016 16:20 CDT [facility] [facility] Document Id: [id number] CDT!28 documented in this encounter Plan of Treatment Not on filedocumented as of this encounter Visit Diagnoses Not on filedocumented in this encounter
--- OUTSIDE RECORDS SUMMARY | 2022-04-25 16:02 | XMS_ITS | Encounter Summary ---
:1975 Author Organization [facility] Address [address] [place] [id number] Care Team Providers Name Role Phone Unavailable Primary Care Provider Unavailable Encounter Details Date Type Department Care Team Description 11/12/2015 Hospital Encounter HX [facility] Marsha Henriquez M.D. [address] [place], [place] [address] (Wo rk) Social History [...] - - Height 147 cm (4' 9.87) 11/12/2015 7:31 AM CDT Body Mass Index - - documented in this encounter Medications at Time of Discharge Medication Sig Dispensed Refills Start Date End Date multivitamin tablet Take 2 tablets by 0 3 mouth daily. FLUORIDE, SODIUM, Apply 1 application 0 3 12/31/2019 DENTAL topically 2 (two) times a day. documented as of this encounter Miscellaneous Notes Miscellaneous - Wali Mcclellan - 11/12/2015 10:18 AM CDT Anticoagulation Patient Intake Anticoagulation Patient Intake Entered On: 11/12/2015 10:21 CDT Performed On: 11/12/2015 10:18 CDT by WALI MCCLELLAN RN Plan INR goal range : 2.0 - 3.0 Duration of Therapy : Lifelong Tablet Size : 5 mg WALI MCCLELLAN RN - 11/12/2015 10:18 CDT Anticoagulation Management Plan Grid Date : [...] darya BURGESS JM WALI Ervin RN - 11/12/2015 10:18 CDT WALI MCCLELLAN RN - 11/12/2015 10:18 CDT WALI MCCLELLAN RN - 11/12/2015 10:18 CDT WALI MCCLELLAN RN - 11/12/2015 10:18 CDT Date : 12/26/2013 CDT 01/30/2014 CDT [...] a long time, no bleeding now left [facility] [place] Fabiola,call if changes Recommend Recheck : Other: 5 weeks Other: 5 weeks Other: 03/10/2014 Other: 03/20/14 Plan completed by : WALI Davidson RN - 11/12/2015 10:18 CDT WALI MCCLELLAN RN - 11/12/2015 10:18 CDT WALI MCCLELLAN RN - 11/12/2015 10:18 CDT WALI MCCLELLAN RN - 11/12/2015 10:18 CDT Date : 03/20/2014 CDT 03/27/2014 CDT [...] Other: Plan completed by : darya lackey [facility]/pharmacy WALI MCCLELLAN RN - 11/12/2015 10:18 CDT WALI MCCLELLAN RN - 11/12/2015 10:18 CDT WALI MCCLELLAN RN - 11/12/2015 10:18 CDT WALI MCCLELLAN RN - 11/12/2015 10:18 CDT Date : 04/17/2014 CDT 04/24/2014 CDT 05/01/2014 MANAGER MARKET INTELLIGENCE 05/15/2014 MANAGER MARKET INTELLIGENCE Location of INR sample : Lab Lab [...] will trynoted dose called to mom Fabiola [phone] called to Fabiola/no changes Called to mother/Fabiola, not awareof any changes Recommend Recheck : One week One week Two weeks Two weeks Plan completed by : WALI CHOI RN - 11/12/2015 10:18 CDT WALI MCCLELLAN RN - 11/12/2015 10:18 CDT WALI MCCLELLAN RN - 11/12/2015 10:18 CDT WALI MCCLELLAN RN - 11/12/2015 10:18 CDT Date : 06/03/2014 MANAGER MARKET INTELLIGENCE 06/05/2014 MANAGER MARKET INTELLIGENCE 06/10/2014 MANAGER MARKET INTELLIGENCE 06/11/2014 MANAGER MARKET INTELLIGENCE Location of INR sample : Lab Type [...] Fabiola granados. Hue will be staying in [place] 2wks post-surgery & have INR drawn there. [...] completed by : WALI TYLER RN - 11/12/2015 10:18 CDWALI OGLESBY RN - 11/12/2015 10:18 CDT WALI MCCLELLAN RN - 11/12/2015 10:18 CDT WALI MCCLELLAN RN - 11/12/2015 10:18 CDT Date : 06/14/2014 MANAGER MARKET INTELLIGENCE 06/14/2014 MANAGER MARKET INTELLIGENCE 06/16/2014 MANAGER MARKET INTELLIGENCE 06/23/2014 MANAGER MARKET INTELLIGENCE Location of INR sample : Clinic Lab Lab Type of Sample : Venous Venous INR Result : 1.3 on 06/13 2.4 faxed from lab 2.0 Warfarin Dose : (pt took 2.5mg 06/13) 5mg Sat and 5mg Sun (06/14 and 06/15) 5mg Mon and 2.5mg all other days 5mg Mon and 2.5mg all other days Total Weekly Warfarin Dose : 20 20 Comment : [place] lab called with INR result from 06/13, reported they left a message with Dr. Henriquez and hadn't heard back, spoke with mother, Fabiola, and gave doses, continue Lovenox and repeat INR 06/16, message left with INR clinic in to contact CF Please contact [facility] on 06/16 for result and may call Fabiola at [phone] with instructions call to Fabiola/will stop Lovenox [...] by : WALI Steven LM, RN - 11/12/2015 10:18 CDT WALI MCCLELLAN RN - 11/12/2015 10:18 CDT WALI MCCLELLAN RN - 11/12/2015 10:18 CDT WALI MCCLELLAN RN - 11/12/2015 10:18 CDT Date : 07/10/2014 MANAGER MARKET INTELLIGENCE 07/17/2014 MANAGER MARKET INTELLIGENCE 07/31/2014 MANAGER MARKET INTELLIGENCE 09/11/2014 CDT Location of INR sample : [...] completed by : WALI Yarbrough RN - 11/12/2015 10:18 CDT WALI MCCLELLAN RN - 11/12/2015 10:18 PATRICIAT WALI MCCLELLAN RN - 11/12/2015 10:18 PATRICIAT WALI MCCLELLAN RN - 11/12/2015 10:18 CDT Date : 09/12/2014 CDT 09/25/2014 CDT [...] doses Called to Mom/Fabiola, no changes, rev'd w/[facility]/Pharmacy called to Mom/Fabiola, no changes Recommend Recheck : Two weeks One week One week Two weeks Plan completed by : WALI Almaguer RN - 11/12/2015 10:18 CDT WALI MCCLELLAN RN - 11/12/2015 10:18 WALI GALINDO RN - 11/12/2015 10:18 CDT WALI MCCLELLAN RN - 11/12/2015 10:18 CDT Date : 10/23/2014 CDT 11/13/2014 CDT [...] change is she is exercising alot for [employer]/no bleeding/consult with Quintin/Pharmacy and called Mom with orders Per Meredith Hernandez, no changes, has been drinking some Kiwi Juice, no bleeding/consult with Quintin/Pharmacy Called to mom /Fabiola, no changes, [facility] Recommend Recheck : Three weeks One week One week One week Plan completed by : WALI Skinner RN - 11/12/2015 10:18 CDT WALI MCCLELLAN RN - 11/12/2015 10:18 CDT WALI MCCLELLAN RN - 11/12/2015 10:18 CDT WALI MCCLELLAN RN - 11/12/2015 10:18 CDT Date : 12/04/2014 CDT 12/18/2014 CDT [...] completed by : WALI Cabrera RN - 11/12/2015 10:18 CDT WALI MCCLELLAN RN - 11/12/2015 10:18 CDT WALI MCCLELLAN RN - 11/12/2015 10:18 CDT WALI MCCLELLAN RN - 11/12/2015 10:18 CDT Date : 02/05/2015 CDT 02/26/2015 CDT [...] completed by : WALI LAWRENCE RN - 11/12/2015 10:18 CDT WALI MCCLELLAN RN - 11/12/2015 10:18 CDT WALI MCCLELLAN RN - 11/12/2015 10:18 CDT WALI MCCLELLAN RN - 11/12/2015 10:18 CDT Date : 04/09/2015 CDT 05/07/2015 MANAGER MARKET INTELLIGENCE 06/04/2015 MANAGER MARKET INTELLIGENCE 07/02/2015 MANAGER MARKET INTELLIGENCE Location of INR sample : Lab Lab [...] completed by : WALI Nelson RN - 11/12/2015 10:18 CDT WALI MCCLELLAN RN - 11/12/2015 10:18 CDT WALI MCCLELLAN RN - 11/12/2015 10:18 CDT WALI MCCLELLAN RN - 11/12/2015 10:18 CDT Date : 08/06/2015 MANAGER MARKET INTELLIGENCE 09/17/2015 CDT 10/29/2015 CDT 11/12/2015 CDT Location [...] completed by : WALI Toussaint RN - 11/12/2015 10:18 CDT WALI MCCLELLAN RN - 11/12/2015 10:18 CDT WALI MCCLELLAN RN - 11/12/2015 10:18 CDT WALI MCCLELLAN RN - 11/12/2015 10:18 CDT Anticoagulation Assessment / History Visit : Phone management Plan of Care Date : 01/29/2008 CDT Primary Physician Anticoagulation : TASHA HENRIQUEZ MD 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 : DVT Lower, Other: Deep Phlebitis-Leg NEC CHADS2 Score Date : 09/05/2013 CDT WALI MCCLELLAN RN - 11/12/2015 10:18 CDT Changes / Problems Changes/Problems Since Last Visit : None Been Scheduled For : None Missed Coumadin Doses : None Change In Intake : None Change In Medication : None Have You Had : None Plans to Travel : No WALI MCCLELLAN RN - 11/12/2015 10:18 CDT Source: [facility] IsentioCHART Document Id: [id number] CDT!507 Miscellaneous - Wali Mcclellan - 11/12/2015 9:45 AM CDT Results Notification Document Contains Addenda Addendum by WALI MCCLELLAN RN on November 12, 2015 10:24:22 CDT Orders called to Mom/Fabiola. From: WALI MCCLELLAN RN ( Anticoagulation Nurse) To: Anticoagulation Nurse; Sent: 11/12/2015 09:45:19 CDT Show up: 11/12/2015 09:46:00 CDT Subject: Results Notification Results: Date Result Name Value Ref Range 11/12/2015 08:01 PT 34.6 second(s) (8.7 - 11.8) 11/12/2015 08:01 INR 3.1 INR (0.9 - 1.1) Source: [facility] POWERCHART Document Id: [id number] documented in this encounter Plan of Treatment Not on filedocumented as of this encounter Procedures Procedure Name Priority Date/Time Associated Comments Diagnosis PROTHROMBIN TIME Routine 11/12/2015 8:01 AM Resul ts for this (PT), P CDT procedure are i n the results section. documented in this encounter Results (ABNORMAL) PT (Prothrombin Time) with INR (11/12/2015 8:01 AM CDT) [facility] Method Time Signature Prothrombin 34.6 (H) 8.7 - 11.8 POWERCHART Time, P SECONDS INR 3.1 (H) 0.9 - 1.1 POWERCHART INR Comment: Recommended INR for prophylaxis/treatmen t of Venous Thrombosis, Pulmonary Embolism, Myocardial Infarction, and Embolism from Atrial Fibrillation is 2.0- 3.0 (Standard Therapy) Recommended INR for Mechanical Heart Tejal ves and recurrent Systemic Embolism is 2.5-3.5 (Intensive Therapy) Specimen (Source) Anatomical Collection Method Collection Time Re ceived Time Location / / Volume Laterality Blood 11/12/2015 8:01 AM CDT Tasha Henriquez M.D. LAB BLOOD ADD-ON Performing Organization Address City/State/ZIP Code Phon e Number POWERCHART documented in this encounter Visit Diagnoses Not on filedocumented in this encounter
--- OUTSIDE RECORDS SUMMARY | 2022-04-25 16:02 | XMS_ITS | Encounter Summary ---
:1975 Author Organization [facility] Address [address] [place] [id number] Care Team Providers Name Role Phone Unavailable Primary Care Provider Unavailable Encounter Details Date Type Department Care Team Description 01/15/2015 Hospital Encounter HX [facility] Marsha Henriquez M.D. [address] [place], [place] [address] (Wo rk) Social [...] - - Height 147 cm (4' 9.87) 01/15/2015 6:43 AM CDT Body Mass Index - - documented in this encounter Medications at Time of Discharge Medication Sig Dispensed Refills Start Date End Date multivitamin tablet Take 2 tablets by 0 3 mouth daily. FLUORIDE, SODIUM, Apply 1 application 0 3 12/31/2019 DENTAL topically 2 (two) times a day. documented as of this encounter Miscellaneous Notes Telephone Encounter - Wali Mcclellan - 01/15/2015 11:22 AM CDT Low INR Document Contains Addenda Addendum by WALI MCCLELLAN RN on 15 January 2015 12:56:45 CDT Noted. Addendum by TASHA HENRIQUEZ MD on 15 January 2015 12:41:22 CDT From: TASHA HENRIQUEZ MD To: Anticoagulation Nurse; Sent: 01/15/2015 12:41:22 CDT Subject: RE: Low INR No. thanks From: WALI MCCLELLAN RN ( Anticoagulation Nurse) To: TASHA HENRIQUEZ MD; Sent: 01/15/2015 11:22:29 CDT ! Subject: Low INR Patient's INR is 1.6 today. No changes. On Coumadin for hx DVT and Protein S Deficiency with range of 2-3. Will increase dose and recheck in a week. Does she need Lovenox or change to current plan? Thanks! Source: [facility] POWERCHART Document Id: [id number] Miscellaneous - Wali Mcclellan - 01/15/2015 11:22 AM CDT Anticoagulation Patient Intake Anticoagulation Patient Intake Entered On: 01/15/2015 11:24 CDT Performed On: 01/15/2015 11:22 CDT by WALI MCCLELLAN RN Plan INR goal range : 2.0 - 3.0 Duration of Therapy : Lifelong Tablet Size : 5 mg WALI MCCLELLAN RN - 01/15/2015 11:22 CDT WALI MCCLELLAN RN - 01/15/2015 11:22 CDT Anticoagulation Management Plan Grid Date : [...] completed by : WALI Tracy RN - 01/15/2015 11:22 CDT WALI MCCLELLAN RN - 01/15/2015 11:22 CDT WALI MCCLELLAN RN - 01/15/2015 11:22 CDT WALI MCCLELLAN RN - 01/15/2015 11:22 CDT Date : 12/26/2013 CDT 01/30/2014 CDT [...] completed by : WALI Davidson RN - 01/15/2015 11:22 CDT WALI MCCLELLAN RN - 01/15/2015 11:22 CDT WALI MCCLELLAN RN - 01/15/2015 11:22 CDT WALI MCCLELLAN RN - 01/15/2015 11:22 CDT Date : 03/20/2014 CDT 03/27/2014 CDT [...] lackey LM /pharmacy WALI MCCLELLAN RN - 01/15/2015 11:22 CDT WALI MCCLELLAN RN - 01/15/2015 11:22 CDT WALI MCCLELLAN RN - 01/15/2015 11:22 CDT WALI MCCLELLAN RN - 01/15/2015 11:22 CDT Date : 04/17/2014 CDT 04/24/2014 CDT 05/01/2014 WATER/WASTEWATER PROJECT ENGINEER 05/15/2014 WATER/WASTEWATER PROJECT ENGINEER Location of INR sample : Lab Lab [...] will trynoted dose called to mom Fabiola [phone] called to Fabiola/no changes Called to mother/Fabiola, not awareof any changes Recommend Recheck : One week One week Two weeks Two weeks Plan completed by : WALI CHOI RN - 01/15/2015 11:22 CDT WALI MCCLELLAN RN - 01/15/2015 11:22 CDWALI OGLESBY RN - 01/15/2015 11:22 CDT WALI MCCLELLAN RN - 01/15/2015 11:22 CDT Date : 06/03/2014 WATER/WASTEWATER PROJECT ENGINEER 06/05/2014 WATER/WASTEWATER PROJECT ENGINEER 06/10/2014 WATER/WASTEWATER PROJECT ENGINEER 06/11/2014 WATER/WASTEWATER PROJECT ENGINEER Location of INR sample : Lab Type [...] Called motherFabiola. Hue will be staying in [place] 2wks post-surgery & have INR drawn there. [...] lovenox tomorrow AM as ordered. INR in [place] for next several weeks as pt will be recovering there. Recommend Recheck : Other: depending on Dr. Henriquez's preop. Other: 06/18 Other: 06/13/14 Plan completed by : WALI TYLER RN - 01/15/2015 11:22 CDWALI OGLESBY RN - 01/15/2015 11:22 WALI GALINDO RN - 01/15/2015 11:22 WALI GALINDO RN - 01/15/2015 11:22 CDT Date : 06/14/2014 WATER/WASTEWATER PROJECT ENGINEER 06/14/2014 WATER/WASTEWATER PROJECT ENGINEER 06/16/2014 WATER/WASTEWATER PROJECT ENGINEER 06/23/2014 WATER/WASTEWATER PROJECT ENGINEER Location of INR sample : Clinic Lab Lab Type of Sample : Venous Venous INR Result : 1.3 on 06/13 2.4 faxed from lab 2.0 Warfarin Dose : (pt took 2.5mg 06/13) 5mg Sat and 5mg Sun (06/14 and 06/15) 5mg Mon and 2.5mg all other days 5mg Mon and 2.5mg all other days Total Weekly Warfarin Dose : 20 20 Comment : [place] lab called with INR result from 06/13, reported they left a message with Dr. Henriquez and hadn't heard back, spoke with mother, Fabiola, and gave doses, continue Lovenox and repeat INR 06/16, message left with INR clinic in to contact CF Please contact [facility] on 06/16 for result and may call Fabiola at [phone] with instructions call to Fabiola/will stop Lovenox injections and take noted dose/pt has an appt here in [place] 06/23 so will do lab appt here that day Called to Fabiola/ Hue will be back at [facility] by next draw. will have done on . no changes to meds/diet. Recommend Recheck : Two days One week Two weeks Plan completed by : WALI Steven LM RN - 01/15/2015 11:22 CDT WALI MCCLELLAN RN - 01/15/2015 11:22 CDT WALI MCCLELLAN RN - 01/15/2015 11:22 CDT WALI MCCLELLAN RN - 01/15/2015 11:22 CDT Date : 07/10/2014 WATER/WASTEWATER PROJECT ENGINEER 07/17/2014 WATER/WASTEWATER PROJECT ENGINEER 07/31/2014 WATER/WASTEWATER PROJECT ENGINEER 09/11/2014 CDT Location of INR sample : [...] completed by : WALI Yarbrough RN - 01/15/2015 11:22 CDT WALI MCCLELLAN RN - 01/15/2015 11:22 CDT WALI MCCLELLAN RN - 01/15/2015 11:22 CDT WALI MCCLELLAN RN - 01/15/2015 11:22 CDT Date : 09/12/2014 CDT 09/25/2014 CDT [...] completed by : WALI Almaguer RN - 01/15/2015 11:22 CDT WALI MCCLELLAN RN - 01/15/2015 11:22 CDT WALI MCCLELLAN RN - 01/15/2015 11:22 CDT WALI MCCLELLAN RN - 01/15/2015 11:22 CDT Date : 10/23/2014 CDT 11/13/2014 CDT [...] completed by : WALI Skinner RN - 01/15/2015 11:22 CDT WALI MCCLELLAN RN - 01/15/2015 11:22 CDT WALI MCCLELLAN RN - 01/15/2015 11:22 CDT WALI MCCLELLAN RN - 01/15/2015 11:22 CDT Date : 12/04/2014 CDT 12/18/2014 CDT 01/15/2015 CDT Location of INR sample : Lab Lab Lab Type of Sample : Venous Venous Venous INR Result : 2.1 2.1 1.6 Warfarin Dose : 5mg Thurs, 2.5mg all other days 5mg Thurs and 2.5mg all other days 7.5mg 01/15 then 5mg Mon & Thurs, 2.5mg all other days Total Weekly Warfarin Dose : 20 20 22.5 Comment : called to Mom/Fabiola/no changes or bleeding concerns LM on Fabiola's identified VM/to call ifchanges,questions or concerns Period this past wk & took Midol per castro/Fabiola, no Lovenox per Dr Henriquez, rev'd dose w/[facility]/Pharmacy Recommend Recheck : Two weeks Three weeks One week Plan completed by : WALI Chaudhary RN - 01/15/2015 11:22 CDT WALI MCCLELLAN RN - 01/15/2015 11:22 CDT WALI MCCLELLAN RN - 01/15/2015 14:50 CDT Anticoagulation Assessment / History Visit : Phone management Plan of Care Date : 01/29/2008 CDT Primary Physician Anticoagulation : TASHA HENRIQUEZ MD 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 : DVT Lower, Other: Deep Phlebitis-Leg NEC CHADS2 Score Date : 09/05/2013 CDT WLAI MCCLELLAN RN - 01/15/2015 11:22 CDT Changes / Problems Changes/Problems Since Last Visit : None Been Scheduled For : None Missed Coumadin Doses : None Change In Intake : None Change In Medication : Over the Counter Medications Have You Had : None Plans to Travel : No WALI MCCLELLAN RN - 01/15/2015 11:22 CDT Source: [facility] SlamData Document Id: [id number] CDT!377 Miscellaneous - Wali Mcclellan - 01/15/2015 10:13 AM CDT Results Notification Document Contains Addenda Addendum by WALI MCCLELLAN RN on 15 January 2015 14:56:24 CDT Orders called to Mom/Fabiola. Addendum by WALI MCCLELLAN RN on 15 January 2015 14:48:33 CDT LMTC Addendum by WALI MCCLELLAN RN on 15 January 2015 11:25:[address] Henriquez re: Lovenox and will consult with Pharmacy for dose. From: WALI MCCLELLAN RN ( Anticoagulation Nurse) To: Anticoagulation Nurse; Sent: 01/15/2015 10:13:35 CDT Show up: 01/15/2015 10:14:00 CDT Subject: Results Notification Results: Date Result Name Value Ref Range 01/15/2015 08:10 PT 17.5 second(s) 01/15/2015 08:10 INR 1.6 INR (0.8 - 1.1) [facility] Document Id: [id number] documented in this encounter Plan of Treatment Not on filedocumented as of this encounter Procedures Procedure Name Priority Date/Time Associated Comments Diagnosis PROTHROMBIN TIME Routine 01/15/2015 8:10 AM Resul ts for this (PT), P CDT procedure are i n the results section. documented in this encounter Results (ABNORMAL) PT (Prothrombin Time) with INR (01/15/2015 8:10 AM CDT) [facility] Method Time Signature Prothrombin 17.5 SECONDS POWERCHART Time, P INR 1.6 (H) 0.8 - 1.1 POWERCHART INR Comment: Recommended INR for prophylaxis/treatmen t of Venous Thrombosis, Pulmonary Embolism, Myocardial Infarction, and Embolism from Atrial Fibrillation is 2.0- 3.0 (Standard Therapy) Recommended INR for Mechanical Heart Tejal ves and recurrent Systemic Embolism is 2.5-3.5 (Intensive Therapy) Specimen (Source) Anatomical Collection Method Collection Time Re ceived Time Location / / Volume Laterality Blood 01/15/2015 8:10 AM CDT Tasha Henriquez M.D. LAB BLOOD ADD-ON Performing Organization Address City/State/ZIP Code Phon e Number POWERCHART documented in this encounter Visit Diagnoses Not on filedocumented in this encounter
--- OUTSIDE RECORDS SUMMARY | 2022-04-25 16:02 | XMS_ITS | Encounter Summary ---
:1975 Author Organization [facility] Address [address] [place] [address] Care Team Providers Name Role Phone Unavailable Primary Care Provider Unavailable Encounter Details Date Type Department Care Team Description 12/03/2015 Hospital Encounter HX [facility] Marsha Henriquez M.D. [address] [place], [place] [address] (Wo rk) Social History [...] - - Height 147 cm (4' 9.87) 12/03/2015 10:55 AM CDT Body Mass Index - - documented in this encounter Medications at Time of Discharge Medication Sig Dispensed Refills Start Date End Date multivitamin tablet Take 2 tablets by 0 3 mouth daily. FLUORIDE, SODIUM, Apply 1 application 0 3 12/31/2019 DENTAL topically 2 (two) times a day. documented as of this encounter Miscellaneous Notes Miscellaneous - Wali Mcclellan - 12/03/2015 11:18 AM CDT Anticoagulation Patient Intake Anticoagulation Patient Intake Entered On: 12/03/2015 11:21 CDT Performed On: 12/03/2015 11:18 CDT by WALI MCCLELLAN RN Plan INR goal range : 2.0 - 3.0 Duration of Therapy : Lifelong Tablet Size : 5 mg WALI MCCLELLAN RN - 12/03/2015 11:18 CDT Anticoagulation Management Plan Grid Date [...] darya BURGESS JM WALI Ervin RN - 12/03/2015 11:18 CDT WALI MCCLELLAN RN - 12/03/2015 11:18 CDT WALI MCCLELLAN RN - 12/03/2015 11:18 CDT WALI MCCLELLAN RN - 12/03/2015 11:18 CDT Date : 12/26/2013 CDT 01/30/2014 [...] a long time, no bleeding now left [facility] for Fabiola,call if changes Recommend Recheck : Other: 5 weeks Other: 5 weeks Other: 03/10/2014 Other: 03/20/14 Plan completed by : WALI Davidson RN - 12/03/2015 11:18 CDT WALI MCCLELLAN RN - 12/03/2015 11:18 CDT WALI MCCLELLAN RN - 12/03/2015 11:18 CDT WALI MCCLELLAN RN - 12/03/2015 11:18 CDT Date : 03/20/2014 CDT 03/27/2014 [...] [facility]/pharmacy WALI MCCLELLAN RN - 12/03/2015 11:18 CDT WALI MCCLELLAN RN - 12/03/2015 11:18 CDT WALI MCCLELLAN RN - 12/03/2015 11:18 CDT WALI MCCLELLAN RN - 12/03/2015 11:18 CDT Date : 04/17/2014 CDT 04/24/2014 CDT 05/01/2014 SECURITY RISK ANALYST 05/15/2014 SECURITY RISK ANALYST Location of INR sample : Lab [...] will trynoted dose called to mom Fabiola [phone] called to Fabiola/no changes Called to mother/Fabiola, not awareof any changes Recommend Recheck : One week One week Two weeks Two weeks Plan completed by : WALI CHOI RN - 12/03/2015 11:18 CDT WALI MCCLELLAN RN - 12/03/2015 11:18 CDT WALI MCCLELLAN RN - 12/03/2015 11:18 CDT WALI MCCLELLAN RN - 12/03/2015 11:18 CDT Date : 06/03/2014 SECURITY RISK ANALYST 06/05/2014 SECURITY RISK ANALYST 06/10/2014 SECURITY RISK ANALYST 06/11/2014 SECURITY RISK ANALYST Location of INR sample : Lab [...] Fabiola granados. Hue will be staying in [place] 2wks post-surgery & have INR drawn there. [...] completed by : WALI TYLER RN - 12/03/2015 11:18 CDT WALI MCCLELLAN RN - 12/03/2015 11:18 CDT WALI MCCLELLAN RN - 12/03/2015 11:18 CDWALI OGLESBY RN - 12/03/2015 11:18 CDT Date : 06/14/2014 SECURITY RISK ANALYST 06/14/2014 SECURITY RISK ANALYST 06/16/2014 SECURITY RISK ANALYST 06/23/2014 SECURITY RISK ANALYST Location of INR sample : Clinic [...] Warfarin Dose : 20 20 Comment : [place] lab called with INR result from 06/13, reported they left a message with Dr. Henriquez and hadn't heard back, spoke with mother, Fabiola, and gave doses, continue Lovenox and repeat INR 06/16, message left with INR clinic in to contact CF Please contact [facility] on 06/16 for result and may call Fabiola at [phone] with instructions call to Fabiola/will stop Lovenox injections and take noted dose/pt has an appt here in [place] 06/23 so will do lab appt here that day Called to Fabiola/ Hue will be back at [facility] by next draw. will have done on . no changes to meds/diet. Recommend Recheck : Two days One week Two weeks Plan completed by : WALI Steven LM, RN - 12/03/2015 11:18 CDT WALI MCCLELLAN RN - 12/03/2015 11:18 CDT WALI MCCLELLAN RN - 12/03/2015 11:18 CDT WALI MCCLELLAN RN - 12/03/2015 11:18 CDT Date : 07/10/2014 SECURITY RISK ANALYST 07/17/2014 SECURITY RISK ANALYST 07/31/2014 SECURITY RISK ANALYST 09/11/2014 CDT Location of INR sample [...] completed by : WALI Yarbrough RN - 12/03/2015 11:18 CDT WALI MCCLELLAN RN - 12/03/2015 11:18 CDT WALI MCCLELLAN RN - 12/03/2015 11:18 CDT WALI MCCLELLAN RN - 12/03/2015 11:18 CDT Date : 09/12/2014 CDT 09/25/2014 [...] completed by : WALI Almaguer RN - 12/03/2015 11:18 CDT WALI MCCLELLAN RN - 12/03/2015 11:18 CDT WALI MCCLELLAN RN - 12/03/2015 11:18 CDT WALI MCCLELLAN RN - 12/03/2015 11:18 CDT Date : 10/23/2014 CDT 11/13/2014 [...] change is she is exercising alot for [employer]/no bleeding/consult with Quintin/Pharmacy and called Mom with orders Per Meredith Hernandez, no changes, has been drinking some Kiwi Juice, no bleeding/consult with Quintin/Pharmacy Called to mom /Fabiola, no changes, [facility] Recommend Recheck : Three weeks One week One week One week Plan completed by : WALI Skinner RN - 12/03/2015 11:18 CDT WALI MCCLELLAN RN - 12/03/2015 11:18 CDT WALI MCCLELLAN RN - 12/03/2015 11:18 CDT WALI MCCLELLAN RN - 12/03/2015 11:18 CDT Date : 12/04/2014 CDT 12/18/2014 [...] completed by : WALI Cabrera RN - 12/03/2015 11:18 CDT WALI MCCLELLAN RN - 12/03/2015 11:18 CDT WALI MCCLELLAN RN - 12/03/2015 11:18 CDT WALI MCCLELLAN RN - 12/03/2015 11:18 CDT Date : 02/05/2015 CDT 02/26/2015 [...] completed by : WALI LAWRENCE RN - 12/03/2015 11:18 CDT WALI MCCLELLAN RN - 12/03/2015 11:18 CDT WALI MCCLELLAN RN - 12/03/2015 11:18 CDT WALI MCCLELLAN RN - 12/03/2015 11:18 CDT Date : 04/09/2015 CDT 05/07/2015 SECURITY RISK ANALYST 06/04/2015 SECURITY RISK ANALYST 07/02/2015 SECURITY RISK ANALYST Location of INR sample : Lab [...] completed by : WALI Nelson RN - 12/03/2015 11:18 CDT WALI MCCLELLAN RN - 12/03/2015 11:18 CDT WALI MCCLELLAN RN - 12/03/2015 11:18 CDT WALI MCCLELLAN RN - 12/03/2015 11:18 CDT Date : 08/06/2015 SECURITY RISK ANALYST 09/17/2015 CDT 10/29/2015 CDT 11/12/2015 CDT [...] completed by : WALI Toussaint RN - 12/03/2015 11:18 CDT WALI MCCLELLAN RN - 12/03/2015 11:18 CDT WALI MCCLELLAN RN - 12/03/2015 11:18 CDT WALI MCCLELLAN RN - 12/03/2015 11:18 CDT Date : 11/19/2015 CDT 12/03/2015 CDT Location of INR sample : Lab Lab Type of Sample : Venous Venous INR Result : 2.3 2.7 Warfarin Dose : 5mg Mon, 2.5mg all other days 5mg Mon, 2.5mg all other days Total Weekly Warfarin Dose : 20 20 Comment : called to Mom/Fabiola, no changes Called to Mom/Fabiola, no changes Recommend Recheck : Two weeks One month Plan completed by : WALI Sandoval RN - 12/03/2015 11:18 CDT WALI MCCLELLAN RN - 12/03/2015 11:18 CDT Anticoagulation Assessment / History Visit : Phone management Plan of Care Date : 01/29/2008 CDT Primary Physician Anticoagulation : TASHA HENRIQUEZ MD 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 POWERCHART Document Id: [id number] CDT!527 Miscellaneous - Meli Campo R.N. - 12/03/2015 11:13 AM CDT Results Notification Document Contains Addenda Addendum by WALI MCCLELLAN RN on December 03, 2015 11:24:16 CDT Orders called to Mom/Fabiola. From: MELI CAMPO RN ( Anticoagulation Nurse) To: Anticoagulation Nurse; Sent: 12/03/2015 11:13:25 CDT Show up: 12/03/2015 11:14:00 CDT Subject: Results Notification Results: Date Result Name Value Ref Range 12/03/2015 07:50 PT 30.7 second(s) (8.7 - 11.8) 12/03/2015 07:50 INR 2.7 INR (0.9 - 1.1) Source: [facility] POWERCHART Document Id: [id number] Electronically signed by Conversion, [facility] Residential Designer [id number] at 11/19/2016 9:11 PM CDT documented in this encounter Plan of Treatment Not on filedocumented as of this encounter Procedures Procedure Name Priority Date/Time Associated Comments Diagnosis PROTHROMBIN TIME Routine 12/03/2015 7:50 AM Resul ts for this (PT), P CDT procedure are i n the results section. documented in this encounter Results (ABNORMAL) PT (Prothrombin Time) with INR (12/03/2015 7:50 AM CDT) [facility] Method Time Signature Prothrombin 30.7 (H) 8.7 - 11.8 POWERCHART Time, P SECONDS INR 2.7 (H) 0.9 - 1.1 POWERCHART INR Comment: Recommended INR for prophylaxis/treatmen t of Venous Thrombosis, Pulmonary Embolism, Myocardial Infarction, and Embolism from Atrial Fibrillation is 2.0- 3.0 (Standard Therapy) Recommended INR for Mechanical Heart Tejal ves and recurrent Systemic Embolism is 2.5-3.5 (Intensive Therapy) Specimen (Source) Anatomical Collection Method Collection Time Re ceived Time Location / / Volume Laterality Blood 12/03/2015 7:50 AM CDT aTsha Henriquez M.D. LAB BLOOD ADD-ON Performing Organization Address City/State/ZIP Code Phon e Number POWERCHART documented in this encounter Visit Diagnoses Not on filedocumented in this encounter
--- OUTSIDE RECORDS SUMMARY | 2022-04-25 16:02 | XMS_ITS | Encounter Summary ---
:1975 Author Organization [facility] Address [address] [place] [address] Care Team Providers Name Role Phone Unavailable Primary Care Provider Unavailable Encounter Details Date Type Department Care Team Description 09/17/2015 Hospital Encounter HX [facility] Marsha Henriquez M.D. [address] [place], [place] [address] (Wo rk) Social History [...] - - Height 147 cm (4' 9.87) 09/17/2015 7:12 AM CDT Body Mass Index - - documented in this encounter Medications at Time of Discharge Medication Sig Dispensed Refills Start Date End Date multivitamin tablet Take 2 tablets by 0 3 mouth daily. FLUORIDE, SODIUM, Apply 1 application 0 3 12/31/2019 DENTAL topically 2 (two) times a day. documented as of this encounter Miscellaneous Notes Miscellaneous - Wali Mcclellan - 09/17/2015 10:01 AM CDT Anticoagulation Patient Intake Anticoagulation Patient Intake Entered On: 09/17/2015 10:04 CDT Performed On: 09/17/2015 10:01 CDT by WALI MCCLELLAN RN Plan INR goal range : 2.0 - 3.0 Duration of Therapy : Lifelong Tablet Size : 5 mg WALI MCCLELLAN RN - 09/17/2015 10:01 CDT Anticoagulation Management Plan Grid Date : [...] darya BURGESS JM WALI Ervin RN - 09/17/2015 10:01 CDWALI OGLESBY RN - 09/17/2015 10:01 CDT WALI MCCLELLAN RN - 09/17/2015 10:01 WALI GALINDO RN - 09/17/2015 10:01 CDT Date : 12/26/2013 CDT 01/30/2014 CDT [...] completed by : WALI Davidson RN - 09/17/2015 10:01 T WALI MCCLELLAN RN - 09/17/2015 10:01 CDT WALI MCCLELLAN RN - 09/17/2015 10:01 CDT WALI MCCLELLAN RN - 09/17/2015 10:01 CDT Date : 03/20/2014 CDT 03/27/2014 CDT [...] Other: Plan completed by : darya lackey [facility]/pharmacy WALI MCCLELLAN RN - 09/17/2015 10:01 CDT WALI MCCLELLAN RN - 09/17/2015 10:01 CDT WALI MCCLELLAN RN - 09/17/2015 10:01 CDT WALI MCCLELLAN RN - 09/17/2015 10:01 CDT Date : 04/17/2014 CDT 04/24/2014 CDT 05/01/2014 LINE UP WORKER 05/15/2014 LINE UP WORKER Location of INR sample : Lab [...] will trynoted dose called to mom Fabiola [phone] called to Fabiola/no changes Called to mother/Fabiola, not awareof any changes Recommend Recheck : One week One week Two weeks Two weeks Plan completed by : WALI CHOI RN - 09/17/2015 10:01 CDT WALI MCCLELLAN RN - 09/17/2015 10:01 CDT WALI MCCLELLAN RN - 09/17/2015 10:01 CDT WALI MCCLELLAN RN - 09/17/2015 10:01 CDT Date : 06/03/2014 LINE UP WORKER 06/05/2014 LINE UP WORKER 06/10/2014 LINE UP WORKER 06/11/2014 LINE UP WORKER Location of INR sample : Lab [...] Fabiola granados. Hue will be staying in [place] 2wks post-surgery & have INR drawn there. [...] completed by : WALI TYLER RN - 09/17/2015 10:01 WALI GALINDO RN - 09/17/2015 10:01 WALI GALINDO RN - 09/17/2015 10:01 WALI GALINDO RN - 09/17/2015 10:01 CDT Date : 06/14/2014 LINE UP WORKER 06/14/2014 LINE UP WORKER 06/16/2014 LINE UP WORKER 06/23/2014 LINE UP WORKER Location of INR sample : Clinic [...] Warfarin Dose : 20 20 Comment : [place] lab called with INR result from 06/13, reported they left a message with Dr. Henriquez and hadn't heard back, spoke with mother, Fabiola, and gave doses, continue Lovenox and repeat INR 06/16, message left with INR clinic in to contact CF Please contact [facility] on 06/16 for result and may call Fabiola at [phone] with instructions call to Fabiola/will stop Lovenox [...] by : WALI Steven LM, RN - 09/17/2015 10:01 WALI GALINDO RN - 09/17/2015 10:01 WALI GALINDO RN - 09/17/2015 10:01 WALI GALINDO RN - 09/17/2015 10:01 CDT Date : 07/10/2014 LINE UP WORKER 07/17/2014 LINE UP WORKER 07/31/2014 LINE UP WORKER 09/11/2014 CDT Location of INR sample [...] completed by : WALI Yarbrough RN - 09/17/2015 10:01 WALI GALINDO RN - 09/17/2015 10:01 WALI GALINDO RN - 09/17/2015 10:01 WALI GALINDO RN - 09/17/2015 10:01 CDT Date : 09/12/2014 CDT 09/25/2014 CDT [...] completed by : WALI Almaguer RN - 09/17/2015 10:01 CDWALI OGLESBY RN - 09/17/2015 10:01 WALI GALINDO RN - 09/17/2015 10:01 CDT WALI MCCLELLAN RN - 09/17/2015 10:01 CDT Date : 10/23/2014 CDT 11/13/2014 CDT [...] change is she is exercising alot for [employer]/no bleeding/consult with Quintin/Pharmacy and called Mom with orders Per Meredith Hernandez, no changes, has been drinking some Kiwi Juice, no bleeding/consult with Quintin/Pharmacy Called to mom /Fabiola, no changes, [facility] Recommend Recheck : Three weeks One week One week One week Plan completed by : WALI Skinner RN - 09/17/2015 10:01 CDT WALI MCCLELLAN RN - 09/17/2015 10:01 CDT WALI MCCLELLAN RN - 09/17/2015 10:01 CDT WALI MCCLELLAN RN - 09/17/2015 10:01 CDT Date : 12/04/2014 CDT 12/18/2014 CDT [...] completed by : WALI Cabrera RN - 09/17/2015 10:01 CDT WALI MCCLELLAN RN - 09/17/2015 10:01 CDT WALI MCCLELLAN RN - 09/17/2015 10:01 CDT WALI MCCLELLAN RN - 09/17/2015 10:01 CDT Date : 02/05/2015 CDT 02/26/2015 CDT [...] completed by : WALI LAWRENCE RN - 09/17/2015 10:01 CDT WALI MCCLELLAN RN - 09/17/2015 10:01 CDT WALI MCCLELLAN RN - 09/17/2015 10:01 CDT WALI MCCLELLAN RN - 09/17/2015 10:01 CDT Date : 04/09/2015 CDT 05/07/2015 LINE UP WORKER 06/04/2015 LINE UP WORKER 07/02/2015 LINE UP WORKER Location of INR sample : Lab [...] Other: 5 weeks Plan completed by : WAIL Nelson RN - 09/17/2015 10:01 WALI GALINDO RN - 09/17/2015 10:01 WALI GALINDO RN - 09/17/2015 10:01 WALI GALINDO RN - 09/17/2015 10:01 CDT Date : 08/06/2015 LINE UP WORKER 09/17/2015 CDT Location of INR sample : Lab Clinic Type of Sample : Venous Capillary/POC INR Result : 2.7 2.8 Warfarin Dose : 5mg Mon/Thurs and 2.5mg all other days 5mg Mon & Thurs, 2.5mg all other days Total Weekly Warfarin Dose : 22.5 22.5 Comment : Orders called to Fabiola/mother. No changes. 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 : DVT Lower, Other: Deep Phlebitis-Leg NEC CHADS2 Score Date : 09/05/2013 CDT WALI MCCLELLAN RN - 09/17/2015 10:01 CDT Changes / Problems Changes/Problems Since Last Visit : None Been Scheduled For : None Missed Coumadin Doses : None Change In Intake : None Change In Medication : None Have You Had : None Plans to Travel : No WALI MCCLELLAN RN - 09/17/2015 10:01 CDT Source: [facility] [employer] Document Id: [id number] CDT!487 Miscellaneous - Wali Mcclellan - 09/17/2015 9:59 AM CDT Results Notification Document Contains Addenda Addendum by WALI MCCLELLAN RN on September 17, 2015 10:06:44 CDT Orders called to Mom/Fabiola. From: WALI MCCLELLAN RN ( Anticoagulation Nurse) To: Anticoagulation Nurse; Sent: 09/17/2015 09:59:45 CDT Show up: 09/17/2015 10:00:00 CDT Subject: Results Notification Results: Date Result Name Value Ref Range 09/17/2015 08:05 PT 31.0 second(s) (8.7 - 11.8) 09/17/2015 08:05 INR 2.8 INR (0.9 - 1.1) Source: [facility] [employer] (deja mi)CHART Document Id: [id number] documented in this encounter Plan of Treatment Not on filedocumented as of this encounter Procedures Procedure Name Priority Date/Time Associated Comments Diagnosis PROTHROMBIN TIME Routine 09/17/2015 8:05 AM Resul ts for this (PT), P CDT procedure are i n the results section. documented in this encounter Results (ABNORMAL) PT (Prothrombin Time) with INR (09/17/2015 8:05 AM CDT) [facility] Method Time Signature Prothrombin 31.0 (H) 8.7 - 11.8 POWERCHART Time, P SECONDS INR 2.8 (H) 0.9 - 1.1 POWERCHART INR Comment: Recommended INR for prophylaxis/treatmen t of Venous Thrombosis, Pulmonary Embolism, Myocardial Infarction, and Embolism from Atrial Fibrillation is 2.0- 3.0 (Standard Therapy) Recommended INR for Mechanical Heart Tejal ves and recurrent Systemic Embolism is 2.5-3.5 (Intensive Therapy) Specimen (Source) Anatomical Collection Method Collection Time Re ceived Time Location / / Volume Laterality Blood 09/17/2015 8:05 AM CDT Tasha Henriquez M.D. LAB BLOOD ADD-ON Performing Organization Address City/State/ZIP Code Phon e Number POWERCHART documented in this encounter Visit Diagnoses Not on filedocumented in this encounter
--- OUTSIDE RECORDS SUMMARY | 2022-04-25 16:02 | XMS_ITS | Encounter Summary ---
:1975 Author Organization [facility] Address [address] [place] [address] Care Team Providers Name Role Phone Unavailable Primary Care Provider Unavailable Encounter Details Date Type Department Care Team Description 05/07/2015 Hospital Encounter HX [facility] Marsha Henriquez M.D. [address] [place], [place] [address] (Wo rk) Social History [...] - - Height 147 cm (4' 9.87) 05/07/2015 10:29 AM FIELD CROP HARVEST WORKER Body Mass Index - - documented in this encounter Medications at Time of Discharge Medication Sig Dispensed Refills Start Date End Date multivitamin tablet Take 2 tablets by 0 3 mouth daily. FLUORIDE, SODIUM, Apply 1 application 0 3 12/31/2019 DENTAL topically 2 (two) times a day. documented as of this encounter Miscellaneous Notes Miscellaneous - Khadar Banda RMichaelN. - 05/07/2015 11:06 AM CST Anticoagulation Patient Intake Anticoagulation Patient Intake Entered On: 05/07/2015 11:10 FIELD CROP HARVEST WORKER Performed On: 05/07/2015 11:06 FIELD CROP HARVEST WORKER by KHADAR BANDA RN Plan INR goal range : 2.0 - 3.0 Duration of Therapy : Lifelong Tablet Size : 3 mg, 5 mg KHADAR BANDA RN - 05/07/2015 11:06 FIELD CROP HARVEST WORKER Anticoagulation Management Plan Grid Date : 09/05/2013 [...] darya BURGESS JM KHADAR Mae RN - 05/07/2015 11:06 KHADAR PALOMINO RN - 05/07/2015 11:06 KHADAR PALOMINO RN - 05/07/2015 11:06 KHADAR PALOMINO RN - 05/07/2015 11:06 FIELD CROP HARVEST WORKER Date : 12/26/2013 CDT 01/30/2014 CDT 03/06/2014 [...] a long time, no bleeding now [place] [facility] [place] Fabiola,call if changes Recommend Recheck : Other: 5 weeks Other: 5 weeks Other: 03/10/2014 Other: 03/20/14 Plan completed by : KHADAR Cho RN - 05/07/2015 11:06 FIELD CROP HARVEST WORKER KHADAR BANDA RN - 05/07/2015 11:06 KHADAR PALOMINO RN - 05/07/2015 11:06 KHADAR PALOMINO RN - 05/07/2015 11:06 FIELD CROP HARVEST WORKER Date : 03/20/2014 CDT 03/27/2014 CDT 04/10/2014 [...] Other: Plan completed by : darya lackey [facility]/pharmacy KHADAR BANDA RN - 05/07/2015 11:06 FIELD CROP HARVEST WORKER KHADAR BANDA RN - 05/07/2015 11:06 FIELD CROP HARVEST WORKER KHADAR BANDA RN - 05/07/2015 11:06 KHADAR PALOMINO RN - 05/07/2015 11:06 FIELD CROP HARVEST WORKER Date : 04/17/2014 CDT 04/24/2014 CDT 05/01/2014 FIELD CROP HARVEST WORKER 05/15/2014 FIELD CROP HARVEST WORKER Location of INR sample : Lab [...] will trynoted dose called to mom Fabiola [phone] called to Fabiola/no changes Called to mother/Fabiola, not awareof any changes Recommend Recheck : One week One week Two weeks Two weeks Plan completed by : MARIA GUADALUPE FITCH OZZY KHADAR CAICEDO RN - 05/07/2015 11:06 KHADAR PALOMINO RN - 05/07/2015 11:06 KHADAR PALOMINO RN - 05/07/2015 11:06 KHADAR PALOMINO RN - 05/07/2015 11:06 FIELD CROP HARVEST WORKER Date : 06/03/2014 FIELD CROP HARVEST WORKER 06/05/2014 FIELD CROP HARVEST WORKER 06/10/2014 FIELD CROP HARVEST WORKER 06/11/2014 FIELD CROP HARVEST WORKER Location of INR sample : Lab [...] Fabiola granados. Hue will be staying in [place] 2wks post-surgery & have INR drawn there. [...] completed by : KHADAR SANDERS RN - 05/07/2015 11:06 KHADAR PALOMINO RN - 05/07/2015 11:06 KHADAR PALOMINO RN - 05/07/2015 11:06 KHADAR PALOMINO RN - 05/07/2015 11:06 FIELD CROP HARVEST WORKER Date : 06/14/2014 FIELD CROP HARVEST WORKER 06/14/2014 FIELD CROP HARVEST WORKER 06/16/2014 FIELD CROP HARVEST WORKER 06/23/2014 FIELD CROP HARVEST WORKER Location of INR sample : Clinic [...] Warfarin Dose : 20 20 Comment : [place] lab called with INR result from 06/13, reported they left a message with Dr. Henriquez and hadn't heard back, spoke with mother, Fabiola, and gave doses, continue Lovenox and repeat INR 06/16, message left with INR clinic in to contact CF Please contact [place] lab on 06/16 for result and may call Fabiola at [phone] with instructions call to Fabiola/will stop Lovenox injections and take noted dose/pt has an appt here in [place] 06/23 so will do lab appt here that day Called to Fabiola/ Hue will be back at [facility] by next draw. will have done on . no changes to meds/diet. Recommend Recheck : Two days One week Two weeks Plan completed by : KHADAR Mattson LM RN - 05/07/2015 11:06 KHADRA PALOMINO RN - 05/07/2015 11:06 FIELD CROP HARVEST WORKER KHADAR BANDA RN - 05/07/2015 11:06 KHADAR PALOMINO RN - 05/07/2015 11:06 FIELD CROP HARVEST WORKER Date : 07/10/2014 FIELD CROP HARVEST WORKER 07/17/2014 FIELD CROP HARVEST WORKER 07/31/2014 FIELD CROP HARVEST WORKER 09/11/2014 CDT Location of INR sample [...] completed by : KHADAR Dumont RN - 05/07/2015 11:06 KHADAR PALOMINO RN - 05/07/2015 11:06 KHADAR PALOMINO RN - 05/07/2015 11:06 KHADAR PALOMINO RN - 05/07/2015 11:06 FIELD CROP HARVEST WORKER Date : 09/12/2014 CDT 09/25/2014 CDT 10/02/2014 [...] completed by : KHADAR Rondon RN - 05/07/2015 11:06 FIELD CROP HARVEST WORKER KHADAR BANDA RN - 05/07/2015 11:06 KHADAR PALOMINO RN - 05/07/2015 11:06 KHADAR PALOMINO RN - 05/07/2015 11:06 FIELD CROP HARVEST WORKER Date : 10/23/2014 CDT 11/13/2014 CDT 11/20/2014 [...] is she is 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 [place]/no bleeding/consult with Quintin/Pharmacy and called Mom with orders Per Meredith Hernandez, no changes, has been drinking some Kiwi Juice, no bleeding/consult with Quintin/Pharmacy Called to mom /Fabiola, no changes, rev'd w/BCarlson/Pharmacy Recommend Recheck : Three weeks One week One week One week Plan completed by : KHADAR Toro RN - 05/07/2015 11:06 KHADAR PALOMINO RN - 05/07/2015 11:06 FIELD CROP HARVEST WORKER KHADAR BANDA RN - 05/07/2015 11:06 KHADAR PALOMINO RN - 05/07/2015 11:06 FIELD CROP HARVEST WORKER Date : 12/04/2014 CDT 12/18/2014 CDT 01/15/2015 [...] completed by : KHADAR Vargas RN - 05/07/2015 11:06 FIELD CROP HARVEST WORKER KHADAR BANDA RN - 05/07/2015 11:06 FIELD CROP HARVEST WORKER KHADAR BANDA RN - 05/07/2015 11:06 FIELD CROP HARVEST WORKER KHADAR BANDA RN - 05/07/2015 11:06 FIELD CROP HARVEST WORKER Date : 02/05/2015 CDT 02/26/2015 CDT 03/05/2015 [...] completed by : KHADAR SLOAN RN - 05/07/2015 11:06 FIELD CROP HARVEST WORKER KHADAR BANDA RN - 05/07/2015 11:06 FIELD CROP HARVEST WORKER KHADAR BANDA RN - 05/07/2015 11:06 FIELD CROP HARVEST WORKER KHADAR BANDA RN - 05/07/2015 11:06 FIELD CROP HARVEST WORKER Date : 04/09/2015 CDT 05/07/2015 FIELD CROP HARVEST WORKER Location of INR sample : Lab Lab Type of Sample : Venous Venous INR Result : 2.7 2.4 Warfarin Dose : 5mg Mon/Thurs, 2.5mg all other days 5mg Mon/Thurs, 2.5mg all other days Total Weekly Warfarin Dose : 22.5 22.5 Comment : called to Mom/Fabiola, no changes Orders given and lmtc if changes on Mom/Fabiola's identifiedVM, Recommend Recheck : One month One month Plan completed by : KHADAR Goins RN - 05/07/2015 11:06 FIELD CROP HARVEST WORKER KHADAR BANDA RN - 05/07/2015 11:06 FIELD CROP HARVEST WORKER Anticoagulation Assessment / History Visit : Phone management Plan of Care Date : 01/29/2008 CDT Primary Physician Anticoagulation : TASHA HENRIQUEZ MD 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 - 05/07/2015 11:00 AM CST Results Notification From: MELI CAMPO RN ( Anticoagulation Nurse) To: Anticoagulation Nurse; Sent: 05/07/2015 11:00:37 FIELD CROP HARVEST WORKER Show up: 05/07/2015 11:01:00 FIELD CROP HARVEST WORKER Subject: Results Notification Results: Date Result Name Value Ref Range 05/07/2015 08:00 PT 26.9 second(s) 05/07/2015 08:00 INR 2.4 INR (0.8 - 1.1) Source: [facility] [employer] Document Id: [id number] documented in this encounter Plan of Treatment Not on filedocumented as of this encounter Procedures Procedure Name Priority Date/Time Associated Comments Diagnosis PROTHROMBIN TIME Routine 05/07/2015 8:00 AM Resul ts for this (PT), P FIELD CROP HARVEST WORKER procedure are i n the results section. documented in this encounter Results (ABNORMAL) PT (Prothrombin Time) with INR (05/07/2015 8:00 AM FIELD CROP HARVEST WORKER) [facility] Method Time Signature Prothrombin 26.9 SECONDS POWERCHART Time, P INR 2.4 (H) 0.8 - 1.1 POWERCHART INR Comment: Recommended INR for prophylaxis/treatmen t of Venous Thrombosis, Pulmonary Embolism, Myocardial Infarction, and Embolism from Atrial Fibrillation is 2.0- 3.0 (Standard Therapy) Recommended INR for Mechanical Heart Tejal ves and recurrent Systemic Embolism is 2.5-3.5 (Intensive Therapy) Specimen (Source) Anatomical Collection Method Collection Time Re ceived Time Location / / Volume Laterality Blood 05/07/2015 8:00 AM FIELD CROP HARVEST WORKER Tasha Henriquez M.D. LAB BLOOD ADD-ON Performing Organization Address City/State/ZIP Code Phon e Number POWERCHART documented in this encounter Visit Diagnoses Not on filedocumented in this encounter
--- OUTSIDE RECORDS SUMMARY | 2022-04-25 16:02 | XMS_ITS | Encounter Summary ---
:1975 Author Organization [facility] Address [address] [place] [address] Care Team Providers Name Role Phone Unavailable Primary Care Provider Unavailable Encounter Details Date Type Department Care Team Description 12/18/2014 Hospital Encounter [facility] Marsha Henriquez M.D. [address] [place], [place] [address] (Wo rk) Social History [...] - - Height 147 cm (4' 9.87) 12/18/2014 7:25 AM CDT Body Mass Index - - documented in this encounter Medications at Time of Discharge Medication Sig Dispensed Refills Start Date End Date multivitamin tablet Take 2 tablets by 0 3 mouth daily. FLUORIDE, SODIUM, Apply 1 application 0 3 12/31/2019 DENTAL topically 2 (two) times a day. documented as of this encounter Miscellaneous Notes Miscellaneous - Hanna Truong, RMichaelNMichael - 12/18/2014 12:50 PM CDT Anticoagulation Patient Intake Anticoagulation Patient Intake Entered On: 12/18/2014 12:52 CDT Performed On: 12/18/2014 12:50 CDT by HANNA TRUONG RN Plan INR goal range : 2.0 - 3.0 Duration of Therapy : Lifelong Tablet Size : 5 mg HANNA TRUONG RN - 12/18/2014 12:50 CDT Anticoagulation Management Plan Grid Date : [...] completed by : HANNA Ann RN - 12/18/2014 12:50 CDT HANNA TRUONG RN - 12/18/2014 12:50 CDT HANNA TRUONG RN - 12/18/2014 12:50 CDT HANNA TRUONG RN - 12/18/2014 12:50 CDT Date : 12/26/2013 CDT 01/30/2014 CDT [...] a long time, no bleeding now left [facility] [place] [facility] for Fabiola,call if changes Recommend Recheck : Other: 5 weeks Other: 5 weeks Other: 03/10/2014 Other: 03/20/14 Plan completed by : HANNA Eubanks RN - 12/18/2014 12:50 CDT HANNA TRUONG RN - 12/18/2014 12:50 CDT HANNA TRUONG RN - 12/18/2014 12:50 CDT HANNA TRUONG RN - 12/18/2014 12:50 CDT Date : 03/20/2014 CDT 03/27/2014 CDT [...] Other: Plan completed by : darya lackey [facility]/pharmacy HANNA TRUONG RN - 12/18/2014 12:50 CDT HANNA TRUONG RN - 12/18/2014 12:50 CDT HANNA TRUONG RN - 12/18/2014 12:50 CDT HANNA TRUONG RN - 12/18/2014 12:50 CDT Date : 04/17/2014 CDT 04/24/2014 CDT 05/01/2014 AMORTIZATION CLERK 05/15/2014 AMORTIZATION CLERK Location of INR sample : Lab Lab [...] will trynoted dose called to mom Fabiola [phone] called to Fabiola/no changes Called to mother/Fabiola, not awareof any changes Recommend Recheck : One week One week Two weeks Two weeks Plan completed by : HANNA CLAY RN - 12/18/2014 12:50 CDT HANNA TRUONG RN - 12/18/2014 12:50 CDT HANNA TRUONG RN - 12/18/2014 12:50 CDT HANNA TRUONG RN - 12/18/2014 12:50 CDT Date : 06/03/2014 AMORTIZATION CLERK 06/05/2014 AMORTIZATION CLERK 06/10/2014 AMORTIZATION CLERK 06/11/2014 AMORTIZATION CLERK Location of INR sample : Lab Type [...] Fabiola granados. Hue will be staying in [place] 2wks post-surgery & have INR drawn there. [...] completed by : HANNA MARTIN RN - 12/18/2014 12:50 CDT HANNA TRUONG RN - 12/18/2014 12:50 CDT HANNA TRUONG RN - 12/18/2014 12:50 CDT HANNA TRUONG RN - 12/18/2014 12:50 CDT Date : 06/14/2014 AMORTIZATION CLERK 06/14/2014 AMORTIZATION CLERK 06/16/2014 AMORTIZATION CLERK 06/23/2014 AMORTIZATION CLERK Location of INR sample : Clinic Lab Lab Type of Sample : Venous Venous INR Result : 1.3 on 06/13 2.4 faxed from lab 2.0 Warfarin Dose : (pt took 2.5mg 06/13) 5mg Sat and 5mg Sun (06/14 and 06/15) 5mg Mon and 2.5mg all other days 5mg Mon and 2.5mg all other days Total Weekly Warfarin Dose : 20 20 Comment : [place] lab called with INR result from 06/13, reported they left a message with Dr. Henriquez and hadn't heard back, spoke with mother, Fabiola, and gave doses, continue Lovenox and repeat INR 06/16, message left with INR clinic in to contact CF Please contact [place] lab on 06/16 for result and may call Fabiola at [phone] with instructions call to Fabiola/will stop Lovenox injections and take noted dose/pt has an appt here in 06/23 so will do lab appt here that day Called to Fabiola/ Hue will be back at [facility] by next draw. will have done on . no changes to meds/diet. Recommend Recheck : Two days One week Two weeks Plan completed by : HANNA Neri LM RN - 12/18/2014 12:50 CDT HANNA TRUONG RN - 12/18/2014 12:50 CDT HANNA TRUONG RN - 12/18/2014 12:50 CDT HANNA TRUONG RN - 12/18/2014 12:50 CDT Date : 07/10/2014 AMORTIZATION CLERK 07/17/2014 AMORTIZATION CLERK 07/31/2014 AMORTIZATION CLERK 09/11/2014 CDT Location of INR sample : [...] completed by : HANNA Krishnan RN - 12/18/2014 12:50 CDT HANNA TRUONG RN - 12/18/2014 12:50 CDT HANNA TRUONG RN - 12/18/2014 12:50 CDT HANNA TRUONG RN - 12/18/2014 12:50 CDT Date : 09/12/2014 CDT 09/25/2014 CDT [...] completed by : HANNA Santos RN - 12/18/2014 12:50 CDT HANNA TRUONG RN - 12/18/2014 12:50 CDT HANNA TRUONG RN - 12/18/2014 12:50 CDT HANNA TRUONG RN - 12/18/2014 12:50 CDT Date : 10/23/2014 CDT 11/13/2014 CDT [...] is she is 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 [place]/no bleeding/consult with Quintin/Pharmacy and called Mom with orders Per Meredith Hernandez, no changes, has been drinking some Kiwi Juice, no bleeding/consult with Quintin/Pharmacy Called to castro /Fabiola, no changes, rev'd w/BCarlson/Pharmacy Recommend Recheck : Three weeks One week One week One week Plan completed by : HANNA Cottrell RN - 12/18/2014 12:50 CDT HANNA TRUONG RN - 12/18/2014 12:50 CDT HANNA TRUONG RN - 12/18/2014 12:50 CDT HANNA TRUONG RN - 12/18/2014 12:50 CDT Date : 12/04/2014 CDT 12/18/2014 CDT Location of INR sample : Lab Lab Type of Sample : Venous Venous INR Result : 2.1 2.1 Warfarin Dose : 5mg Thurs, 2.5mg all other days 5mg Thurs and 2.5mg all other days Total Weekly Warfarin Dose : 20 20 Comment : called to Mom/Fabiola/no changes or bleeding concerns LM on Fabiola's identified VM/to call ifchanges,questions or concerns Recommend Recheck : Two weeks Three weeks Plan completed by : HANNA Rojo RN - 12/18/2014 12:50 CDT HANNA TRUONG RN - 12/18/2014 12:50 CDT Anticoagulation Assessment / History Visit : Phone management Plan of Care Date : 01/29/2008 CDT Primary Physician Anticoagulation : TASHA HENRIQUEZ MD 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 - 12/18/2014 9:58 AM CDT Results Notification Document Contains Addenda Addendum by HANNA TRUONG RN on 18 December 2014 12:54:17 CDT LM for Fabiola on her identified VM. From: HANNA TRUONG RN ( Anticoagulation Nurse) To: Anticoagulation Nurse; Sent: 12/18/2014 09:58:23 CDT Show up: 12/18/2014 09:59:00 CDT Subject: Results Notification Results: Date Result Name Value Ref Range 12/18/2014 08:00 PT 23.4 second(s) 12/18/2014 08:00 INR 2.1 INR (0.8 - 1.1) Source: [facility] [employer] Document Id: [id number] Electronically signed by [facility] Centers[facility] Invoicing Machine Operator [id number] at 11/21/2016 11:05 AM CDT Enriquetacelllucian - Khadar Banda R.N. - 12/18/2014 9:58 AM CDT Results Notification From: KHADAR BANDA RN ( Anticoagulation Nurse) To: Anticoagulation Nurse; Sent: 12/18/2014 09:58:17 CDT Show up: 12/18/2014 09:59:00 CDT Subject: Results Notification Results: Date Result Name Value Ref Range 12/18/2014 08:00 PT 23.4 second(s) 12/18/2014 08:00 INR 2.1 INR (0.8 - 1.1) Source: [facility] [employer] Document Id: [id number] Electronically signed by Conversion, [facility] Invoicing Machine Operator [id number] at 11/21/2016 11:04 AM CDT documented in this encounter Plan of Treatment Not on filedocumented as of this encounter Procedures Procedure Name Priority Date/Time Associated Comments Diagnosis PROTHROMBIN TIME Routine 12/18/2014 8:00 AM Resul ts for this (PT), P CDT procedure are i n the results section. documented in this encounter Results (ABNORMAL) PT (Prothrombin Time) with INR (12/18/2014 8:00 AM CDT) [facility] Method Time Signature Prothrombin 23.4 SECONDS POWERCHART Time, P INR 2.1 (H) [...] Time Location / / Volume Laterality Blood 12/18/2014 8:00 AM CDT Tasha Henriquez M.D. LAB BLOOD ADD-ON Performing Organization Address City/State/ZIP Code Phon e Number POWERCHART documented in this encounter Visit Diagnoses Not on filedocumented in this encounter
--- OUTSIDE RECORDS SUMMARY | 2022-04-25 16:02 | XMS_ITS | Encounter Summary ---
:1975 Author Organization [facility] Address [address] [place] [address] Care Team Providers Name Role Phone Unavailable Primary Care Provider Unavailable Encounter Details Date Type Department Care Team Description 01/22/2015 Hospital Encounter HX [facility] Marsha Henriquez M.D. [address] [place], [place] [address] (Wo rk) Social History [...] - - Height 147 cm (4' 9.87) 01/22/2015 7:34 AM CDT Body Mass Index - - documented in this encounter Medications at Time of Discharge Medication Sig Dispensed Refills Start Date End Date multivitamin tablet Take 2 tablets by 0 3 mouth daily. FLUORIDE, SODIUM, Apply 1 application 0 3 12/31/2019 DENTAL topically 2 (two) times a day. documented as of this encounter Miscellaneous Notes Miscellaneous - Wali Mcclellan - 01/22/2015 12:56 PM CDT Anticoagulation Patient Intake Anticoagulation Patient Intake Entered On: 01/22/2015 13:01 CDT Performed On: 01/22/2015 12:56 CDT by WALI MCCLELLAN RN Plan INR goal range : 2.0 - 3.0 Duration of Therapy : Lifelong Tablet Size : 5 mg WALI MCCLELLAN RN - 01/22/2015 12:56 CDT Anticoagulation Management Plan Grid Date : [...] darya BURGESS JM WALI Ervin RN - 01/22/2015 12:56 CDT WALI MCCLELLAN RN - 01/22/2015 12:56 CDT WALI MCCLELLAN RN - 01/22/2015 12:56 CDT WALI MCCLELLAN RN - 01/22/2015 12:56 CDT Date : 12/26/2013 CDT 01/30/2014 CDT [...] a long time, no bleeding now left [facility] [place]iola,call if changes Recommend Recheck : Other: 5 weeks Other: 5 weeks Other: 03/10/2014 Other: 03/20/14 Plan completed by : WALI Davidson RN - 01/22/2015 12:56 CDT WALI MCCLELLAN RN - 01/22/2015 12:56 CDT WALI MCCLELLAN RN - 01/22/2015 12:56 CDT WALI MCCLELLAN RN - 01/22/2015 12:56 CDT Date : 03/20/2014 CDT 03/27/2014 CDT [...] darya lackey [facility]/pharmacy WALI MCCLELLAN RN - 01/22/2015 12:56 CDT WALI MCCLELLAN RN - 01/22/2015 12:56 CDT WALI MCCLELLAN RN - 01/22/2015 12:56 CDT WALI MCCLELLAN RN - 01/22/2015 12:56 CDT Date : 04/17/2014 CDT 04/24/2014 CDT 05/01/2014 CERTIFIED PROCEDURAL CODER 05/15/2014 CERTIFIED PROCEDURAL CODER Location of INR sample : Lab Lab [...] will trynoted dose called to mom Fabiola [phone] called to Fabiola/no changes Called to mother/Fabiola, not awareof any changes Recommend Recheck : One week One week Two weeks Two weeks Plan completed by : WALI CHOI RN - 01/22/2015 12:56 CDT WALI MCCLELLAN RN - 01/22/2015 12:56 CDT WALI MCCLELLAN RN - 01/22/2015 12:56 CDT WALI MCCLELLAN RN - 01/22/2015 12:56 CDT Date : 06/03/2014 CERTIFIED PROCEDURAL CODER 06/05/2014 CERTIFIED PROCEDURAL CODER 06/10/2014 CERTIFIED PROCEDURAL CODER 06/11/2014 CERTIFIED PROCEDURAL CODER Location of INR sample : Lab Type [...] Fabiola granados. Hue will be staying in [place] 2wks post-surgery & have INR drawn there. She will resume normal dosing after surgery. Preop today w/aarnza Mckeon 06/11, to bridge w/Lovenox post surg, [...] completed by : WALI TYLER RN - 01/22/2015 12:56 CDT WALI MCCLELLAN RN - 01/22/2015 12:56 CDT WALI MCCLELLAN RN - 01/22/2015 12:56 CDT WALI MCCLELLAN RN - 01/22/2015 12:56 CDT Date : 06/14/2014 CERTIFIED PROCEDURAL CODER 06/14/2014 CERTIFIED PROCEDURAL CODER 06/16/2014 CERTIFIED PROCEDURAL CODER 06/23/2014 CERTIFIED PROCEDURAL CODER Location of INR sample : Clinic Lab Lab Type of Sample : Venous Venous INR Result : 1.3 on 06/13 2.4 faxed from lab 2.0 Warfarin Dose : (pt took 2.5mg 06/13) 5mg Sat and 5mg Sun (06/14 and 06/15) 5mg Mon and 2.5mg all other days 5mg Mon and 2.5mg all other days Total Weekly Warfarin Dose : 20 20 Comment : [place] lab called with INR result from 06/13, reported they left a message with Dr. Henriquez and hadn't heard back, spoke with mother, Fabiola, and gave doses, continue Lovenox and repeat INR 06/16, message left with INR clinic in to contact CF Please contact [facility] on 06/16 for result and may call Fabiola at [phone] with instructions call to Fbaiola/will stop Lovenox injections and take noted dose/pt has an appt here in [place] 06/23 so will do lab appt here that day Called to Fabiola/ Hue will be back at [facility] by next draw. will have done on . no changes to meds/diet. Recommend Recheck : Two days One week Two weeks Plan completed by : WALI Steven LM, RN - 01/22/2015 12:56 CDT WALI MCCLELLAN RN - 01/22/2015 12:56 CDT WALI MCCLELLAN RN - 01/22/2015 12:56 CDT WALI MCCLELLAN RN - 01/22/2015 12:56 CDT Date : 07/10/2014 CERTIFIED PROCEDURAL CODER 07/17/2014 CERTIFIED PROCEDURAL CODER 07/31/2014 CERTIFIED PROCEDURAL CODER 09/11/2014 CDT Location of INR sample : [...] completed by : WALI Yarbrough RN - 01/22/2015 12:56 CDT WALI MCCLELLAN RN - 01/22/2015 12:56 CDT WALI MCCLELLAN RN - 01/22/2015 12:56 CDT WALI MCCLELLAN RN - 01/22/2015 12:56 CDT Date : 09/12/2014 CDT 09/25/2014 CDT [...] completed by : WALI Almaguer RN - 01/22/2015 12:56 CDT WALI MCCLELLAN RN - 01/22/2015 12:56 CDT WALI MCCLELLAN RN - 01/22/2015 12:56 CDT WALI MCCLELLAN RN - 01/22/2015 12:56 CDT Date : 10/23/2014 CDT 11/13/2014 CDT [...] change is she is exercising alot for [employer]/no bleeding/consult with Quintin/Pharmacy and called Mom with orders Per Meredith Hernandez, no changes, has been drinking some Kiwi Juice, no bleeding/consult with Quintin/Pharmacy Called to mom /Fabiola, no changes, [facility] Recommend Recheck : Three weeks One week One week One week Plan completed by : WALI Skinner RN - 01/22/2015 12:56 CDT WALI MCCLELLAN RN - 01/22/2015 12:56 CDT WALI MCCLELLAN RN - 01/22/2015 12:56 CDT WALI MCCLELLAN RN - 01/22/2015 12:56 CDT Date : 12/04/2014 CDT 12/18/2014 CDT [...] completed by : WALI Cabrera RN - 01/22/2015 12:56 CDT WALI MCCLELLAN RN - 01/22/2015 12:56 CDT WALI MCCLELLAN RN - 01/22/2015 12:56 CDT WALI MCCLELLAN RN - 01/22/2015 12:56 CDT Anticoagulation Assessment / History Visit : Phone management Plan of Care Date : 01/29/2008 CDT Primary Physician Anticoagulation : TASHA HENRIQUEZ MD 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 : DVT Lower, Other: Deep Phlebitis-Leg NEC CHADS2 Score Date : 09/05/2013 CDT WALI MCCLELLAN RN - 01/22/2015 12:56 CDT Changes / Problems Changes/Problems Since Last Visit : None Been Scheduled For : None Missed Coumadin Doses : None Change In Intake : None Change In Medication : None Have You Had : None Plans to Travel : No WALI MCCLELLAN RN - 01/22/2015 12:56 CDT Source: [facility] POWERCHART Document Id: [id number] CDT![id number] Miscellaneous - Wali Mcclellan - 01/22/2015 10:40 AM CDT Results Notification Document Contains Addenda Addendum by WALI MCCLELLAN RN on 22 January 2015 13:04:00 CDT Orders called to mom/Fabiola. From: WALI MCCLELLAN RN ( Anticoagulation Nurse) To: Anticoagulation Nurse; Sent: 01/22/2015 10:40:18 CDT Show up: 01/22/2015 10:41:00 CDT Subject: Results Notification Results: Date Result Name Value Ref Range 01/22/2015 08:00 PT 26.6 second(s) (8.7 - 11.8) 01/22/2015 08:00 INR 2.4 INR (0.9 - 1.1) Source: [facility] POWERCHART Document Id: [id number] Electronically signed by Conversion, [facility] Social Media Marketing Specialist [id number] at 11/20/2016 11:45 PM CDT documented in this encounter Plan of Treatment Not on filedocumented as of this encounter Procedures Procedure Name Priority Date/Time Associated Comments Diagnosis PROTHROMBIN TIME Routine 01/22/2015 8:00 AM Resul ts for this (PT), P CDT procedure are i n the results section. documented in this encounter Results (ABNORMAL) PT (Prothrombin Time) with INR (01/22/2015 8:00 AM CDT) [facility] Method Time Signature Prothrombin 26.6 (H) 8.7 - 11.8 POWERCHART Time, P SECONDS INR 2.4 (H) 0.9 - 1.1 POWERCHART INR Comment: Recommended INR for prophylaxis/treatmen t of Venous Thrombosis, Pulmonary Embolism, Myocardial Infarction, and Embolism from Atrial Fibrillation is 2.0- 3.0 (Standard Therapy) Recommended INR for Mechanical Heart Tejal ves and recurrent Systemic Embolism is 2.5-3.5 (Intensive Therapy) Specimen (Source) Anatomical Collection Method Collection Time Re ceived Time Location / / Volume Laterality Blood 01/22/2015 8:00 AM CDT Tasha Henriquez M.D. LAB BLOOD ADD-ON Performing Organization Address City/State/ZIP Code Phon e Number POWERCHART documented in this encounter Visit Diagnoses Not on filedocumented in this encounter
--- OUTSIDE RECORDS SUMMARY | 2022-04-25 16:02 | XMS_ITS | Encounter Summary ---
:1975 Author Organization [facility] Address [address] [place] [address] Care Team Providers Name Role Phone Unavailable Primary Care Provider Unavailable Encounter Details Date Type Department Care Team Description 11/19/2015 Hospital Encounter HX [facility] Marsha Henriquez M.D. [address] [place], [place] [address] (Wo rk) Social History [...] - - Height 147 cm (4' 9.87) 11/19/2015 7:32 AM CDT Body Mass Index - - documented in this encounter Medications at Time of Discharge Medication Sig Dispensed Refills Start Date End Date multivitamin tablet Take 2 tablets by 0 3 mouth daily. FLUORIDE, SODIUM, Apply 1 application 0 3 12/31/2019 DENTAL topically 2 (two) times a day. documented as of this encounter Miscellaneous Notes Miscellaneous - Khadar Banda, RMichaelN. - 11/19/2015 10:15 AM CDT Anticoagulation Patient Intake Anticoagulation Patient Intake Entered On: 11/19/2015 10:18 CDT Performed On: 11/19/2015 10:15 CDT by KHADAR BANDA RN Plan INR goal range : 2.0 - 3.0 Duration of Therapy : Lifelong Tablet Size : 5 mg KHADAR BANDA RN - 11/19/2015 10:15 CDT Anticoagulation Management Plan Grid Date : [...] darya BURGESS JM KHADAR Mae RN - 11/19/2015 10:15 CDT KHADAR BANDA RN - 11/19/2015 10:15 CDT KHADAR BANDA RN - 11/19/2015 10:15 CDT KHADAR BANDA RN - 11/19/2015 10:15 CDT Date : 12/26/2013 CDT 01/30/2014 CDT [...] completed by : KHADAR Cho RN - 11/19/2015 10:15 CDT KHADAR BANDA RN - 11/19/2015 10:15 CDT KHADAR BANDA RN - 11/19/2015 10:15 CDT KHADAR BANDA RN - 11/19/2015 10:15 CDT Date : 03/20/2014 CDT 03/27/2014 CDT [...] Other: Plan completed by : darya lackey [facility]/pharmacy KHADAR BANDA RN - 11/19/2015 10:15 CDT KHADAR BANDA RN - 11/19/2015 10:15 CDT KHADAR BANDA RN - 11/19/2015 10:15 CDT KHADAR BANDA RN - 11/19/2015 10:15 CDT Date : 04/17/2014 CDT 04/24/2014 CDT 05/01/2014 WATER SKI ASSEMBLER 05/15/2014 WATER SKI ASSEMBLER Location of INR sample : Lab [...] will trynoted dose called to mom Fabiola [phone] called to Fabiola/no changes Called to mother/Fabiola, not awareof any changes Recommend Recheck : One week One week Two weeks Two weeks Plan completed by : KHADAR HACKETT RN - 11/19/2015 10:15 CDT KHDAAR BANDA RN - 11/19/2015 10:15 CDT KHADAR BANDA RN - 11/19/2015 10:15 CDT KHADAR BANDA RN - 11/19/2015 10:15 CDT Date : 06/03/2014 WATER SKI ASSEMBLER 06/05/2014 WATER SKI ASSEMBLER 06/10/2014 WATER SKI ASSEMBLER 06/11/2014 WATER SKI ASSEMBLER Location of INR sample : Lab [...] Called motherFabiola. Hue will be staying in [place] 2wks post-surgery & have INR drawn there. [...] lovenox tomorrow AM as ordered. INR in [place] for next several weeks as pt will be recovering there. Recommend Recheck : Other: depending on Dr. Henriquez's preop. Other: 06/18 Other: 06/13/14 Plan completed by : KHADAR SANDERS RN - 11/19/2015 10:15 CDT KHADAR BANDA RN - 11/19/2015 10:15 CDT KHADAR BANDA RN - 11/19/2015 10:15 CDT KHADAR BANDA RN - 11/19/2015 10:15 CDT Date : 06/14/2014 WATER SKI ASSEMBLER 06/14/2014 WATER SKI ASSEMBLER 06/16/2014 WATER SKI ASSEMBLER 06/23/2014 WATER SKI ASSEMBLER Location of INR sample : Clinic [...] Warfarin Dose : 20 20 Comment : [place] lab called with INR result from 06/13, reported they left a message with Dr. Henriquez and hadn't heard back, spoke with mother, Fabiola, and gave doses, continue Lovenox and repeat INR 06/16, message left with INR clinic in to contact CF Please contact [place] lab on 06/16 for result and may call Fabiola at [phone] with instructions call to Fabiola/will stop Lovenox [...] by : KHADAR Mattson LM RN - 11/19/2015 10:15 CDT KHADAR BANDA RN - 11/19/2015 10:15 PATRICIAT KHADAR BANDA RN - 11/19/2015 10:15 PATRICIAT KHADAR BANDA RN - 11/19/2015 10:15 CDT Date : 07/10/2014 WATER SKI ASSEMBLER 07/17/2014 WATER SKI ASSEMBLER 07/31/2014 WATER SKI ASSEMBLER 09/11/2014 CDT Location of INR sample [...] completed by : KHADAR Dumont RN - 11/19/2015 10:15 CDT KHADAR BANDA RN - 11/19/2015 10:15 PATRICIAT KHADAR BANDA RN - 11/19/2015 10:15 PATRICIAT KHADAR BANDA RN - 11/19/2015 10:15 CDT Date : 09/12/2014 CDT 09/25/2014 CDT [...] completed by : KHADAR Rondon RN - 11/19/2015 10:15 CDT KHADAR BANDA RN - 11/19/2015 10:15 CDT KHADAR BANDA RN - 11/19/2015 10:15 CDT KHADAR BANDA RN - 11/19/2015 10:15 CDT Date : 10/23/2014 CDT 11/13/2014 CDT [...] completed by : KHADAR Toro RN - 11/19/2015 10:15 CDT KHADAR BANDA RN - 11/19/2015 10:15 CDT KHADAR BANDA RN - 11/19/2015 10:15 CDT KHADAR BANDA RN - 11/19/2015 10:15 CDT Date : 12/04/2014 CDT 12/18/2014 CDT [...] completed by : KHADAR Vargas RN - 11/19/2015 10:15 CDT KHADAR BANDA RN - 11/19/2015 10:15 CDT KHADAR BANDA RN - 11/19/2015 10:15 CDT KHADAR BANDA RN - 11/19/2015 10:15 CDT Date : 02/05/2015 CDT 02/26/2015 CDT [...] completed by : KHADAR SLOAN RN - 11/19/2015 10:15 CDT KHADAR BANDA RN - 11/19/2015 10:15 CDT KHADAR BANDA RN - 11/19/2015 10:15 CDT KHADAR BANDA RN - 11/19/2015 10:15 CDT Date : 04/09/2015 CDT 05/07/2015 WATER SKI ASSEMBLER 06/04/2015 WATER SKI ASSEMBLER 07/02/2015 WATER SKI ASSEMBLER Location of INR sample : Lab [...] Other: 5 weeks Plan completed by : daray lackey JM KHADAR GUSTAFSON RN - 11/19/2015 10:15 CDT KHADAR BANDA RN - 11/19/2015 10:15 CDT KHADAR BANDA RN - 11/19/2015 10:15 CDT KHADAR BANDA RN - 11/19/2015 10:15 CDT Date : 08/06/2015 WATER SKI ASSEMBLER 09/17/2015 CDT 10/29/2015 CDT 11/12/2015 CDT Location [...] completed by : KHADAR Rodriguez RN - 11/19/2015 10:15 CDT KHADAR BANDA RN - 11/19/2015 10:15 CDT KHADAR BANDA RN - 11/19/2015 10:15 CDT KHADAR BANDA RN - 11/19/2015 10:15 CDT Date : 11/19/2015 CDT Location of INR sample : Lab Type of Sample : Venous INR Result : 2.3 Warfarin Dose : 5mg Mon, 2.5mg all other days Total Weekly Warfarin Dose : 20 Comment : called to Mom/Fabiola, no changes Recommend Recheck : Two weeks Plan completed by : KHADAR Mae RN - 11/19/2015 10:15 CDT Anticoagulation Assessment / History Visit : Phone management Plan of Care Date : 01/29/2008 CDT Primary Physician Anticoagulation : TASHA HENRIQUEZ MD 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 - 11/19/2015 9:55 AM CDT Results Notification From: KHADAR BANDA RN ( Anticoagulation Nurse) To: Anticoagulation Nurse; Sent: 11/19/2015 09:55:55 CDT Show up: 11/19/2015 09:56:00 CDT Subject: Results Notification Results: Date Result Name Value Ref Range 11/19/2015 08:05 PT 25.7 second(s) (8.7 - 11.8) 11/19/2015 08:05 INR 2.3 INR (0.9 - 1.1) Source: [facility] POWERCHART Document Id: [id number] Electronically signed by Conversion, [facility] Certified Family Mediator [id number] at 11/19/2016 2:21 PM CDT documented in this encounter Plan of Treatment Not on filedocumented as of this encounter Procedures Procedure Name Priority Date/Time Associated Comments Diagnosis PROTHROMBIN TIME Routine 11/19/2015 8:05 AM Resul ts for this (PT), P CDT procedure are i n the results section. documented in this encounter Results (ABNORMAL) PT (Prothrombin Time) with INR (11/19/2015 8:05 AM CDT) [facility] Method Time Signature Prothrombin 25.7 (H) 8.7 - 11.8 POWERCHART Time, P SECONDS INR 2.3 (H) 0.9 - 1.1 POWERCHART INR Comment: Recommended INR for prophylaxis/treatmen t of Venous Thrombosis, Pulmonary Embolism, Myocardial Infarction, and Embolism from Atrial Fibrillation is 2.0- 3.0 (Standard Therapy) Recommended INR for Mechanical Heart Tejal ves and recurrent Systemic Embolism is 2.5-3.5 (Intensive Therapy) Specimen (Source) Anatomical Collection Method Collection Time Re ceived Time Location / / Volume Laterality Blood 11/19/2015 8:05 AM CDT Tasha Henriquez M.D. LAB BLOOD ADD-ON Performing Organization Address City/State/ZIP Code Phon e Number POWERCHART documented in this encounter Visit Diagnoses Not on filedocumented in this encounter
--- OUTSIDE RECORDS SUMMARY | 2022-04-25 16:02 | XMS_ITS | Encounter Summary ---
:1975 Author Organization [facility] Address [address] [place] [address] Care Team Providers Name Role Phone Unavailable Primary Care Provider Unavailable Encounter Details Date Type Department Care Team Description 11/13/2014 Hospital Encounter HX [facility] Marsha Henriquez M.D. [address] [place], [place] [address] (Wo rk) Social History [...] - - Height 147 cm (4' 9.87) 11/13/2014 10:10 AM CDT Body Mass Index - - documented in this encounter Medications at Time of Discharge Medication Sig Dispensed Refills Start Date End Date multivitamin tablet Take 2 tablets by 0 3 mouth daily. FLUORIDE, SODIUM, Apply 1 application 0 3 12/31/2019 DENTAL topically 2 (two) times a day. documented as of this encounter Miscellaneous Notes Miscellaneous - Khadar Banad, RMichaelN. - 11/13/2014 10:58 AM CDT Anticoagulation Patient Intake Anticoagulation Patient Intake Entered On: 11/13/2014 11:01 CDT Performed On: 11/13/2014 10:58 CDT by KHADAR BANDA RN Plan INR goal range : 2.0 - 3.0 Duration of Therapy : Lifelong Tablet Size : 5 mg KHADAR BANDA RN - 11/13/2014 10:58 CDT KHADAR BANDA RN - 11/13/2014 10:58 CDT Anticoagulation Management Plan Grid Date : [...] darya BURGESS JM KHADAR Mae RN - 11/13/2014 10:58 KHADAR HILL RN - 11/13/2014 10:58 CDT KHADAR BANDA RN - 11/13/2014 10:58 CDT KHADRA BANDA RN - 11/13/2014 10:58 CDT Date : 12/26/2013 CDT 01/30/2014 CDT [...] 25 25 25 Comment : called to Faibola called to Fabiola called to Fabiola, no changes, did have a pimple a couple ofweeks ago that bled for a long time, no bleeding now left msg for Fabiola,call if changes Recommend Recheck : Other: 5 weeks Other: 5 weeks Other: 03/10/2014 Other: 03/20/14 Plan completed by : PATRICE lackey NB KHADAR BANDA RN - 11/13/2014 10:58 CDT KHADAR BANDA RN - 11/13/2014 10:58 CDT KHADAR BANDA RN - 11/13/2014 10:58 CDT KHADAR BANDA RN - 11/13/2014 10:58 CDT Date : 03/20/2014 CDT 03/27/2014 CDT [...] [facility]/pharmacy KHADAR BANDA RN - 11/13/2014 10:58 CDT KHADAR BANDA RN - 11/13/2014 10:58 CDT KHADAR BANDA RN - 11/13/2014 10:58 CDT KHADAR BANDA RN - 11/13/2014 10:58 CDT Date : 04/17/2014 CDT 04/24/2014 CDT 05/01/2014 BEEF CATTLE FARM WORKER 05/15/2014 BEEF CATTLE FARM WORKER Location of INR sample : Lab [...] will trynoted dose called to mom Fabiola [phone] called to Fabiola/no changes Called to mother/Fabiola, not awareof any changes Recommend Recheck : One week One week Two weeks Two weeks Plan completed by : KHADAR HACKETT RN - 11/13/2014 10:58 CDT KHADAR BANDA RN - 11/13/2014 10:58 CDT KHADAR BANDA RN - 11/13/2014 10:58 CDT KHADAR BANDA RN - 11/13/2014 10:58 CDT Date : 06/03/2014 BEEF CATTLE FARM WORKER 06/05/2014 BEEF CATTLE FARM WORKER 06/10/2014 BEEF CATTLE FARM WORKER 06/11/2014 BEEF CATTLE FARM WORKER Location of INR sample : Lab [...] Fabiola granados. Hue will be staying in [place] 2wks post-surgery & have INR drawn there. [...] lovenox tomorrow AM as ordered. INR in [place] for next several weeks as pt will be recovering there. Recommend Recheck : Other: depending on Dr. Henriquez's preop. Other: 06/18 Other: 06/13/14 Plan completed by : KHADAR SANDERS RN - 11/13/2014 10:58 CDT KHADAR BANDA RN - 11/13/2014 10:58 CDT KHADAR BANDA RN - 11/13/2014 10:58 CDT KHADAR BANDA RN - 11/13/2014 10:58 CDT Date : 06/14/2014 BEEF CATTLE FARM WORKER 06/14/2014 BEEF CATTLE FARM WORKER 06/16/2014 BEEF CATTLE FARM WORKER 06/23/2014 BEEF CATTLE FARM WORKER Location of INR sample : Clinic [...] Warfarin Dose : 20 20 Comment : [place] lab called with INR result from 06/13, reported they left a message with Dr. Henriquez and hadn't heard back, spoke with mother, Fabiola, and gave doses, continue Lovenox and repeat INR 06/16, message left with INR clinic in to contact CF Please contact [place] lab on 06/16 for result and may call Fabiola at [phone] with instructions call to Fabiola/will stop Lovenox [...] : latasha OZZY KHADAR VILLAFUERTE RN - 11/13/2014 10:58 CDT KHADAR BANDA RN - 11/13/2014 10:58 CDT KHADAR BANDA RN - 11/13/2014 10:58 CDT KHADAR BANDA RN - 11/13/2014 10:58 CDT Date : 07/10/2014 BEEF CATTLE FARM WORKER 07/17/2014 BEEF CATTLE FARM WORKER 07/31/2014 BEEF CATTLE FARM WORKER 09/11/2014 CDT Location of INR sample [...] darya BoyceK ly KHADAR GUSTAFSON RN - 11/13/2014 10:58 CDT KHADAR BANDA RN - 11/13/2014 10:58 CDT KHADAR BANDA RN - 11/13/2014 10:58 CDT KHADAR BANDA RN - 11/13/2014 10:58 CDT Date : 09/12/2014 CDT 09/25/2014 CDT [...] call mom on cell phone # per Mom/nocgosiages or missed doses Called to Mom/Fabiola, no changes, rev'd w/[facility]/Pharmacy called to Mom/Fabiola, no changes Recommend Recheck : Two weeks One week One week Two weeks Plan completed by : MARIA GUADALUPE ly JM KHADAR Mae RN - 11/13/2014 10:58 CDT KHADAR BANDA RN - 11/13/2014 10:58 CDT KHADAR BANDA RN - 11/13/2014 10:58 CDT KHADAR BANDA RN - 11/13/2014 10:58 CDT Date : 10/23/2014 CDT 11/13/2014 CDT Location of INR sample : Lab Lab Type of Sample : Venous Venous INR Result : 2.6 5.1 Warfarin Dose : 5mg Tues/Thurs/Sat, 2.5mg all other days HOLD 11/13, then 5mg Tues/Sat, 2.5mg all other days Total Weekly Warfarin Dose : 25 Comment : called to Mom/Fabiola, no changes called to Fabiola Hernandez, 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/no bleeding/consult with Quintin/Pharmacy and called Mom with orders Recommend Recheck : Three weeks One week Plan completed by : KHADAR Goins RN - 11/13/2014 10:58 CDT KHADAR BANDA RN - 11/13/2014 12:12 CDT Anticoagulation Assessment / History Visit : Phone management Plan of Care Date : 01/29/2008 CDT Primary Physician Anticoagulation : TASHA HENRIQUEZ MD 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 - 11/13/2014 10:54 AM CDT Results Notification Document Contains Addenda Addendum by KHADAR BANDA RN on 13 Nov 2014 11:02:01 CDT will consult with pharmacist From: KHADAR BANDA RN ( Anticoagulation Nurse) To: Anticoagulation Nurse; Sent: 11/13/2014 10:54:26 CDT Show up: 11/13/2014 10:55:00 CDT Subject: Results Notification Results: Date Result Name Value Ref Range 11/13/2014 08:00 PT 61.0 second(s) (8.7 - 11.8) 11/13/2014 08:00 INR 5.1 INR (0.9 - 1.1) Source: [facility] POWERCHART Document Id: [id number] Electronically signed by Conversion, [facility] Photonics Engineering Technician [id number] at 11/21/2016 8:59 AM CDT documented in this encounter Plan of Treatment Not on filedocumented as of this encounter Procedures Procedure Name Priority Date/Time Associated Comments Diagnosis PROTHROMBIN TIME Routine 11/13/2014 8:00 AM Resul ts for this (PT), P CDT procedure are i n the results section. documented in this encounter Results (ABNORMAL) PT (Prothrombin Time) with INR (11/13/2014 8:00 AM CDT) [facility] Method Time Signature Prothrombin 61.0 (H) 8.7 - 11.8 POWERCHART Time, P SECONDS Comment: Critical results called to Vadim Novak LPN at 11/13/2014 10:44:21 CDT, by JORGE. Critical lab value read back yes. INR 5.1 (C) 0.9 - 1.1 INR POWERCHART Comment: This result has been repeated f or confirmation. Specimen (Source) Anatomical Collection Method Collection Time Re ceived Time Location / / Volume Laterality Blood 11/13/2014 8:00 AM CDT Tasha Henriquez M.D. LAB BLOOD ADD-ON Performing Organization Address City/State/ZIP Code Phon e Number POWERCHART documented in this encounter Visit Diagnoses Not on filedocumented in this encounter
--- OUTSIDE RECORDS SUMMARY | 2022-04-25 16:02 | XMS_ITS | Encounter Summary ---
:1975 Author Organization [facility] Address [address] [place] [address] Care Team Providers Name Role Phone Unavailable Primary Care Provider Unavailable Encounter Details Date Type Department Care Team Description 12/31/2015 Hospital Encounter HX [facility] Marsha Henriquez M.D. [address] [place], [place] [address] (Wo rk) Social History [...] - - Height 147 cm (4' 9.87) 12/31/2015 7:32 AM CDT Body Mass Index - - documented in this encounter Medications at Time of Discharge Medication Sig Dispensed Refills Start Date End Date multivitamin tablet Take 2 tablets by 0 3 mouth daily. FLUORIDE, SODIUM, Apply 1 application 0 3 12/31/2019 DENTAL topically 2 (two) times a day. documented as of this encounter Miscellaneous Notes Miscellaneous - Khadar Banda, RMichaelN. - 12/31/2015 10:03 AM CDT Anticoagulation Patient Intake Anticoagulation Patient Intake Entered On: 12/31/2015 10:06 CDT Performed On: 12/31/2015 10:03 CDT by KHADAR BANDA RN Plan INR goal range : 2.0 - 3.0 Duration of Therapy : Lifelong Tablet Size : 5 mg KHADAR BANDA RN - 12/31/2015 10:03 CDT Anticoagulation Management Plan Grid Date : [...] darya BURGESS JM KHADAR Mae RN - 12/31/2015 10:03 CDKHADAR BERNSTEIN RN - 12/31/2015 10:03 CDT KHADAR BANDA RN - 12/31/2015 10:03 CDT KHADAR BANDA RN - 12/31/2015 10:03 CDT Date : 12/26/2013 CDT 01/30/2014 CDT [...] completed by : KHADAR Cho RN - 12/31/2015 10:03 CDT KHADAR BANDA RN - 12/31/2015 10:03 CDT KHADAR BANDA RN - 12/31/2015 10:03 CDT KHADAR BANDA RN - 12/31/2015 10:03 CDT Date : 03/20/2014 CDT 03/27/2014 CDT [...] completed by : darya lackey [facility]/pharmacy KHADAR BANDA RN - 12/31/2015 10:03 CDT KHADAR BANDA RN - 12/31/2015 10:03 CDT KHADAR BANDA RN - 12/31/2015 10:03 CDT KHADAR BANDA RN - 12/31/2015 10:03 CDT Date : 04/17/2014 CDT 04/24/2014 CDT 05/01/2014 SHOW WORKER 05/15/2014 SHOW WORKER Location of INR sample : Lab [...] will trynoted dose called to mom Fabiola [phone] called to Fabiola/no changes Called to mother/Fabiola, not awareof any changes Recommend Recheck : One week One week Two weeks Two weeks Plan completed by : KHADAR HACKETT RN - 12/31/2015 10:03 CDT KHADAR BANDA RN - 12/31/2015 10:03 CDT KHADAR BANDA RN - 12/31/2015 10:03 CDT KHADAR BANDA RN - 12/31/2015 10:03 CDT Date : 06/03/2014 SHOW WORKER 06/05/2014 SHOW WORKER 06/10/2014 SHOW WORKER 06/11/2014 SHOW WORKER Location of INR sample : Lab [...] Called motherFabiola. Hue will be staying in [place] 2wks post-surgery & have INR drawn there. [...] lovenox tomorrow AM as ordered. INR in [place] for next several weeks as pt will be recovering there. Recommend Recheck : Other: depending on Dr. Henriquez's preop. Other: 06/18 Other: 06/13/14 Plan completed by : KHADAR SANDERS RN - 12/31/2015 10:03 CDT KHADAR BANDA RN - 12/31/2015 10:03 PATRICIAT KHADAR BANDA RN - 12/31/2015 10:03 CDT KHADAR BANDA RN - 12/31/2015 10:03 CDT Date : 06/14/2014 SHOW WORKER 06/14/2014 SHOW WORKER 06/16/2014 SHOW WORKER 06/23/2014 SHOW WORKER Location of INR sample : Clinic [...] Warfarin Dose : 20 20 Comment : [place] lab called with INR result from 06/13, reported they left a message with Dr. Henriquez and hadn't heard back, spoke with mother, Fabiola, and gave doses, continue Lovenox and repeat INR 06/16, message left with INR clinic in to contact CF Please contact [place] lab on 06/16 for result and may call Fabiola at [phone] with instructions call to Fabiola/will stop Lovenox injections and take noted dose/pt has an appt here in 06/23 so will do lab appt here that day Called to Fabiola/ Hue will be back at [facility] by next draw. will have done on . no changes to meds/diet. Recommend Recheck : Two days One week Two weeks Plan completed by : KHADAR Mattson LM RN - 12/31/2015 10:03 CDT KHADAR BANDA RN - 12/31/2015 10:03 PATRICIAT KHADAR BANDA RN - 12/31/2015 10:03 PATRICIAT KHADAR BANDA RN - 12/31/2015 10:03 CDT Date : 07/10/2014 SHOW WORKER 07/17/2014 SHOW WORKER 07/31/2014 SHOW WORKER 09/11/2014 CDT Location of INR sample [...] completed by : KHADAR Dumont RN - 12/31/2015 10:03 PATRICIAT KHADAR BANDA RN - 12/31/2015 10:03 PATRICIAT KHADAR BANDA RN - 12/31/2015 10:03 PATRICIAT KHADAR BANDA RN - 12/31/2015 10:03 CDT Date : 09/12/2014 CDT 09/25/2014 CDT [...] completed by : KHADAR Rondon RN - 12/31/2015 10:03 CDT KHADAR BANDA RN - 12/31/2015 10:03 CDT KHADAR BANDA RN - 12/31/2015 10:03 CDT KHADAR BANDA RN - 12/31/2015 10:03 CDT Date : 10/23/2014 CDT 11/13/2014 CDT [...] completed by : KHADAR Toro RN - 12/31/2015 10:03 CDT KHADAR BANDA RN - 12/31/2015 10:03 CDT KHADAR BANDA RN - 12/31/2015 10:03 CDT KHADAR BANDA RN - 12/31/2015 10:03 CDT Date : 12/04/2014 CDT 12/18/2014 CDT [...] completed by : KHADAR Vargas RN - 12/31/2015 10:03 CDT KHADAR BANDA RN - 12/31/2015 10:03 CDT KHADAR BANDA RN - 12/31/2015 10:03 CDT KHADAR BANDA RN - 12/31/2015 10:03 CDT Date : 02/05/2015 CDT 02/26/2015 CDT [...] completed by : KHADAR SLOAN RN - 12/31/2015 10:03 CDT KHADAR BANDA RN - 12/31/2015 10:03 CDT KHADAR BANDA RN - 12/31/2015 10:03 CDT KHADAR BANDA RN - 12/31/2015 10:03 CDT Date : 04/09/2015 CDT 05/07/2015 SHOW WORKER 06/04/2015 SHOW WORKER 07/02/2015 SHOW WORKER Location of INR sample : Lab [...] Plan completed by : darya lackey JM KHADAR GUSTAFSON RN - 12/31/2015 10:03 CDT KHADAR BANDA RN - 12/31/2015 10:03 CDT KHADAR BANDA RN - 12/31/2015 10:03 CDT KHADAR BANDA RN - 12/31/2015 10:03 CDT Date : 08/06/2015 SHOW WORKER 09/17/2015 CDT 10/29/2015 CDT 11/12/2015 CDT Location [...] One week Plan completed by : JK KHADAR Chow RN - 12/31/2015 10:03 CDT KHADAR BANDA RN - 12/31/2015 10:03 CDT KHADAR BANDA RN - 12/31/2015 10:03 CDT KHADAR BANDA RN - 12/31/2015 10:03 CDT Date : 11/19/2015 CDT 12/03/2015 CDT 12/31/2015 CDT Location of INR sample : Lab Lab Lab Type of Sample : Venous Venous Venous INR Result : 2.3 2.7 3.1 Warfarin Dose : 5mg Mon, 2.5mg all other days 5mg Mon, 2.5mg all other days 5mg Mon, 2.5mg all otherdays Total Weekly Warfarin Dose : 20 20 20 Comment : called to Mom/Fabiola, no changes Called to Mom/Fabiola, no changes Called to Mom/Fabiola, no changes Recommend Recheck : Two weeks One month One month Plan completed by : KHADAR Romo RN - 12/31/2015 10:03 CDT KHADAR BANDA RN - 12/31/2015 10:03 CDT KHADAR BANDA RN - 12/31/2015 10:03 CDT Anticoagulation Assessment / History Visit : Phone management Plan of Care Date : 01/29/2008 CDT Primary Physician Anticoagulation : TASHA HENRIQUEZ MD 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 - 12/31/2015 10:00 AM CDT Results Notification From: KHADAR BANDA RN ( Anticoagulation Nurse) To: Anticoagulation Nurse; Sent: 12/31/2015 10:00:57 CDT Show up: 12/31/2015 10:01:00 CDT Subject: Results Notification Results: Date Result Name Value Ref Range 12/31/2015 08:00 PT 35.5 second(s) (8.7 - 11.8) 12/31/2015 08:00 INR 3.1 INR (0.9 - 1.1) Source: [facility] POWERCHART Document Id: [id number] Electronically signed by Conversion, [facility] Furniture Mover Driver [id number] at 11/19/2016 10:33 PM CDT documented in this encounter Plan of Treatment Not on filedocumented as of this encounter Procedures Procedure Name Priority Date/Time Associated Comments Diagnosis PROTHROMBIN TIME Routine 12/31/2015 8:00 AM Resul ts for this (PT), P CDT procedure are i n the results section. documented in this encounter Results (ABNORMAL) PT (Prothrombin Time) with INR (12/31/2015 8:00 AM CDT) [facility] Method Time Signature Prothrombin 35.5 (H) 8.7 - 11.8 POWERCHART Time, P [...] Time Location / / Volume Laterality Blood 12/31/2015 8:00 AM CDT Tasha Henriquez M.D. LAB BLOOD ADD-ON Performing Organization Address City/State/ZIP Code Phon e Number POWERCHART documented in this encounter Visit Diagnoses Not on filedocumented in this encounter
--- OUTSIDE RECORDS SUMMARY | 2022-04-25 16:02 | XMS_ITS | Encounter Summary ---
:1975 Author Organization [facility] Address [address] [place] [address] Care Team Providers Name Role Phone Unavailable Primary Care Provider Unavailable Encounter Details Date Type Department Care Team Description 11/27/2014 Hospital Encounter [facility] Marsha Henriquez M.D. [address] [place], [place] [address] (Wo rk) Social History [...] - - Height 147 cm (4' 9.87) 11/27/2014 7:49 AM CDT Body Mass Index - - documented in this encounter Medications at Time of Discharge Medication Sig Dispensed Refills Start Date End Date multivitamin tablet Take 2 tablets by 0 3 mouth daily. FLUORIDE, SODIUM, Apply 1 application 0 3 12/31/2019 DENTAL topically 2 (two) times a day. documented as of this encounter Miscellaneous Notes Miscellaneous - Wali Mcclellan - 11/27/2014 4:31 PM CDT Anticoagulation Patient Intake Anticoagulation Patient Intake Entered On: 11/27/2014 16:37 CDT Performed On: 11/27/2014 16:31 CDT by WALI MCCLELLAN RN Plan INR goal range : 2.0 - 3.0 Duration of Therapy : Lifelong Tablet Size : 5 mg WALI MCCLELLAN RN - 11/27/2014 16:31 CDT Anticoagulation Management Plan Grid Date : [...] darya BURGESS JM WALI Ervin RN - 11/27/2014 16:31 CDT WALI MCCLELLAN RN - 11/27/2014 16:31 CDT WALI MCCLELLAN RN - 11/27/2014 16:31 CDT WALI MCCLELLAN RN - 11/27/2014 16:31 CDT Date : 12/26/2013 CDT 01/30/2014 CDT [...] completed by : WALI Davidson RN - 11/27/2014 16:31 CDT WALI MCCLELLAN RN - 11/27/2014 16:31 CDT WALI MCCLELLAN RN - 11/27/2014 16:31 CDT WALI MCCLELLAN RN - 11/27/2014 16:31 CDT Date : 03/20/2014 CDT 03/27/2014 CDT [...] Plan completed by : darya lackey [facility]/pharmacy WALI MCCLELLAN RN - 11/27/2014 16:31 CDT WALI MCCLELLAN RN - 11/27/2014 16:31 CDT WALI MCCLELLAN RN - 11/27/2014 16:31 CDT WALI MCCLELLAN RN - 11/27/2014 16:31 CDT Date : 04/17/2014 CDT 04/24/2014 CDT 05/01/2014 ANALYTICAL LABORATORY TECHNICIAN 05/15/2014 ANALYTICAL LABORATORY TECHNICIAN Location of INR sample : Lab [...] will trynoted dose called to mom Fabiola [phone] called to Fabiola/no changes Called to mother/Fabiola, not awareof any changes Recommend Recheck : One week One week Two weeks Two weeks Plan completed by : WALI CHOI RN - 11/27/2014 16:31 CDT WALI MCCLELLAN RN - 11/27/2014 16:31 CDT WALI MCCLELLAN RN - 11/27/2014 16:31 CDT WALI MCCLELLAN RN - 11/27/2014 16:31 CDT Date : 06/03/2014 ANALYTICAL LABORATORY TECHNICIAN 06/05/2014 ANALYTICAL LABORATORY TECHNICIAN 06/10/2014 ANALYTICAL LABORATORY TECHNICIAN 06/11/2014 ANALYTICAL LABORATORY TECHNICIAN Location of INR sample : Lab [...] Fabiola granados. Hue will be staying in [place] 2wks post-surgery & have INR drawn there. [...] completed by : WALI TYLER RN - 11/27/2014 16:31 CDT WALI MCCLELLAN RN - 11/27/2014 16:31 CDT WALI MCCLELLAN RN - 11/27/2014 16:31 CDT WALI MCCLELLAN RN - 11/27/2014 16:31 CDT Date : 06/14/2014 ANALYTICAL LABORATORY TECHNICIAN 06/14/2014 ANALYTICAL LABORATORY TECHNICIAN 06/16/2014 ANALYTICAL LABORATORY TECHNICIAN 06/23/2014 ANALYTICAL LABORATORY TECHNICIAN Location of INR sample : Clinic [...] Warfarin Dose : 20 20 Comment : [place] lab called with INR result from 06/13, reported they left a message with Dr. Henriquez and hadn't heard back, spoke with mother, Fabiola, and gave doses, continue Lovenox and repeat INR 06/16, message left with INR clinic in to contact CF Please contact [facility] on 06/16 for result and may call Fabiola at [phone] with instructions call to Fabiola/will stop Lovenox injections and take noted dose/pt has an appt here in [place] 06/23 so will do lab appt here that day Called to Fabiola/ Hue will be back at [facility] by next draw. will have done on . no changes to meds/diet. Recommend Recheck : Two days One week Two weeks Plan completed by : WALI Steven LM, RN - 11/27/2014 16:31 CDT WALI MCCLELLAN RN - 11/27/2014 16:31 CDT WALI MCCLELLAN RN - 11/27/2014 16:31 CDT WALI MCCLELLAN RN - 11/27/2014 16:31 CDT Date : 07/10/2014 ANALYTICAL LABORATORY TECHNICIAN 07/17/2014 ANALYTICAL LABORATORY TECHNICIAN 07/31/2014 ANALYTICAL LABORATORY TECHNICIAN 09/11/2014 CDT Location of INR sample [...] completed by : WALI Yarbrough RN - 11/27/2014 16:31 CDT WALI MCCLELLAN RN - 11/27/2014 16:31 CDT WALI MCCLELLAN RN - 11/27/2014 16:31 CDT WALI MCCLELLAN RN - 11/27/2014 16:31 CDT Date : 09/12/2014 CDT 09/25/2014 CDT [...] completed by : WALI Almaguer RN - 11/27/2014 16:31 CDT WALI MCCLELLAN RN - 11/27/2014 16:31 PATRICIAT WALI MCCLELLAN RN - 11/27/2014 16:31 CDT WALI MCCLELLAN RN - 11/27/2014 16:31 CDT Date : 10/23/2014 CDT 11/13/2014 CDT [...] is 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 is 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 [employer]/no bleeding/consult with Quintin/Pharmacy and called Mom with orders Per Meredith Hernandez, no changes, has been drinking some Kiwi Juice, no bleeding/consult with Quintin/Pharmacy Called to mom /Fabiola, no changes, [facility] Recommend Recheck : Three weeks One week One week One week Plan completed by : WALI Skinner RN - 11/27/2014 16:31 CDT WALI MCCLELLAN RN - 11/27/2014 16:31 CDT WALI MCCLELLAN RN - 11/27/2014 16:31 CDT WALI MCCLELLAN RN - 11/27/2014 16:31 CDT Anticoagulation Assessment / History Visit : Phone management Plan of Care Date : 01/29/2008 CDT Primary Physician Anticoagulation : TASHA HENRIQUEZ MD 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 : DVT Lower, Other: Deep Phlebitis-Leg NEC CHADS2 Score Date : 09/05/2013 CDT WALI MCCLELLAN RN - 11/27/2014 16:31 CDT Changes / Problems Changes/Problems Since Last Visit : None Been Scheduled For : None Missed Coumadin Doses : None Change In Intake : None Change In Medication : None Have You Had : None Plans to Travel : No WALI MCCLELLAN RN - 11/27/2014 16:31 CDT Source: [facility] [employer] Document Id: [id number] CDT![id number] Miscellaneous - Wali Mcclellan - 11/27/2014 4:05 PM CDT Results Notification Document Contains Addenda Addendum by WALI MCCLELLAN RN on 27 November 2014 16:40:22 CDT Orders called to Mom/Fabiola. From: WALI MCCLELLAN RN ( Anticoagulation Nurse) To: Anticoagulation Nurse; Sent: 11/27/2014 16:05:52 CDT Show up: 11/27/2014 16:06:00 CDT Subject: Results Notification Results: Date Result Name Value Ref Range 11/27/2014 08:12 PT 22.6 second(s) (8.7 - 11.8) 11/27/2014 08:12 INR 2.1 INR (0.9 - 1.1) Source: [facility] [employer] Document Id: [id number] documented in this encounter Plan of Treatment Not on filedocumented as of this encounter Procedures Procedure Name Priority Date/Time Associated Comments Diagnosis PROTHROMBIN TIME Routine 11/27/2014 8:12 AM Resul ts for this (PT), P CDT procedure are i n the results section. documented in this encounter Results (ABNORMAL) PT (Prothrombin Time) with INR (11/27/2014 8:12 AM CDT) [facility] Method Time Signature Prothrombin 22.6 (H) 8.7 - 11.8 POWERCHART Time, P SECONDS INR 2.1 (H) 0.9 - 1.1 POWERCHART INR Comment: This result has been repeated f or confirmation. Specimen (Source) Anatomical Collection Method Collection Time Re ceived Time Location / / Volume Laterality Blood 11/27/2014 8:12 AM CDT Tasha Henriquez M.D. LAB BLOOD ADD-ON Performing Organization Address City/State/ZIP Code Phon e Number POWERCHART documented in this encounter Visit Diagnoses Not on filedocumented in this encounter
--- OUTSIDE RECORDS SUMMARY | 2022-04-25 16:02 | XMS_ITS | Encounter Summary ---
:1975 Author Organization [facility] Address [address] [place] [address] Care Team Providers Name Role Phone Unavailable Primary Care Provider Unavailable Encounter Details Date Type Department Care Team Description 06/04/2015 Hospital Encounter HX [facility] Marsha Henriquez M.D. [address] [place], [place] [address] (Wo rk) Social History [...] - - Height 147 cm (4' 9.87) 06/04/2015 6:19 AM SCIENTIFIC RESEARCH ASSOCIATE Body Mass Index - - documented in this encounter Medications at Time of Discharge Medication Sig Dispensed Refills Start Date End Date multivitamin tablet Take 2 tablets by 0 3 mouth daily. FLUORIDE, SODIUM, Apply 1 application 0 3 12/31/2019 DENTAL topically 2 (two) times a day. documented as of this encounter Miscellaneous Notes Miscellaneous - Wali Mcclellan - 06/04/2015 10:35 AM CST Anticoagulation Patient Intake Anticoagulation Patient Intake Entered On: 06/04/2015 10:38 SCIENTIFIC RESEARCH ASSOCIATE Performed On: 06/04/2015 10:35 SCIENTIFIC RESEARCH ASSOCIATE by WALI MCCLELLAN RN Plan INR goal range : 2.0 - 3.0 Duration of Therapy : Lifelong Tablet Size : 3 mg, 5 mg WALI MCCLELLAN RN - 06/04/2015 10:35 SCIENTIFIC RESEARCH ASSOCIATE Anticoagulation Management Plan Grid Date : 09/05/2013 [...] darya BURGESS JM WALI Ervin RN - 06/04/2015 10:35 SCIENTIFIC RESEARCH ASSOCIATE WALI MCCLELLAN RN - 06/04/2015 10:35 SCIENTIFIC RESEARCH ASSOCIATE WALI MCCLELLAN RN - 06/04/2015 10:35 SCIENTIFIC RESEARCH ASSOCIATE WALI MCCLELLAN RN - 06/04/2015 10:35 SCIENTIFIC RESEARCH ASSOCIATE Date : 12/26/2013 CDT 01/30/2014 CDT 03/06/2014 [...] a long time, no bleeding now left [facility] for Fabiola,call if changes Recommend Recheck : Other: 5 weeks Other: 5 weeks Other: 03/10/2014 Other: 03/20/14 Plan completed by : WALI Davidson RN - 06/04/2015 10:35 SCIENTIFIC RESEARCH ASSOCIATE WALI MCCLELLAN RN - 06/04/2015 10:35 WALI REYNOLDS RN - 06/04/2015 10:35 WALI REYNOLDS RN - 06/04/2015 10:35 SCIENTIFIC RESEARCH ASSOCIATE Date : 03/20/2014 CDT 03/27/2014 CDT 04/10/2014 [...] Other: Plan completed by : darya lackey [facility]/pharmacy WALI MCCLELLAN RN - 06/04/2015 10:35 WALI REYNOLDS RN - 06/04/2015 10:35 SCIENTIFIC RESEARCH ASSOCIATE WALI MCCLELLAN RN - 06/04/2015 10:35 WALI REYNOLDS RN - 06/04/2015 10:35 SCIENTIFIC RESEARCH ASSOCIATE Date : 04/17/2014 CDT 04/24/2014 CDT 05/01/2014 SCIENTIFIC RESEARCH ASSOCIATE 05/15/2014 SCIENTIFIC RESEARCH ASSOCIATE Location of INR sample : Lab Lab [...] will trynoted dose called to mom Fabiola [phone] called to Fabiola/no changes Called to mother/Fabiola, not awareof any changes Recommend Recheck : One week One week Two weeks Two weeks Plan completed by : WALI CHOI RN - 06/04/2015 10:35 SCIENTIFIC RESEARCH ASSOCIATE WALI MCCLELLAN RN - 06/04/2015 10:35 WALI REYNOLDS RN - 06/04/2015 10:35 SCIENTIFIC RESEARCH ASSOCIATE WALI MCCLELLAN RN - 06/04/2015 10:35 SCIENTIFIC RESEARCH ASSOCIATE Date : 06/03/2014 SCIENTIFIC RESEARCH ASSOCIATE 06/05/2014 SCIENTIFIC RESEARCH ASSOCIATE 06/10/2014 SCIENTIFIC RESEARCH ASSOCIATE 06/11/2014 SCIENTIFIC RESEARCH ASSOCIATE Location of INR sample : Lab Type [...] Fabiola granados. Hue will be staying in [place] 2wks post-surgery & have INR drawn there. [...] lovenox tomorrow AM as ordered. INR in [place] for next several weeks as pt will be recovering there. Recommend Recheck : Other: depending on Dr. Henriquez's preop. Other: 06/18 Other: 06/13/14 Plan completed by : WALI TYLER RN - 06/04/2015 10:35 WALI REYNOLDS RN - 06/04/2015 10:35 WALI REYNOLDS RN - 06/04/2015 10:35 WALI REYNOLDS RN - 06/04/2015 10:35 SCIENTIFIC RESEARCH ASSOCIATE Date : 06/14/2014 SCIENTIFIC RESEARCH ASSOCIATE 06/14/2014 SCIENTIFIC RESEARCH ASSOCIATE 06/16/2014 SCIENTIFIC RESEARCH ASSOCIATE 06/23/2014 SCIENTIFIC RESEARCH ASSOCIATE Location of INR sample : Clinic Lab Lab Type of Sample : Venous Venous INR Result : 1.3 on 06/13 2.4 faxed from lab 2.0 Warfarin Dose : (pt took 2.5mg 06/13) 5mg Sat and 5mg Sun (06/14 and 06/15) 5mg Mon and 2.5mg all other days 5mg Mon and 2.5mg all other days Total Weekly Warfarin Dose : 20 20 Comment : [place] lab called with INR result from 06/13, reported they left a message with Dr. Henriquez and hadn't heard back, spoke with mother, Fabiola, and gave doses, continue Lovenox and repeat INR 06/16, message left with INR clinic in to contact Please contact [place] lab on 06/16 for result and may call Fabiola at [phone] with instructions call to Fabiola/will stop Lovenox injections and take noted dose/pt has an appt here in [place] 06/23 so will do lab appt here that day Called to Fabiola/ Hue will be back at [facility] by next draw. will have done on . no changes to meds/diet. Recommend Recheck : Two days One week Two weeks Plan completed by : WALI Steven LM, RN - 06/04/2015 10:35 WALI REYNOLDS RN - 06/04/2015 10:35 WALI REYNOLDS RN - 06/04/2015 10:35 WALI REYNOLDS RN - 06/04/2015 10:35 SCIENTIFIC RESEARCH ASSOCIATE Date : 07/10/2014 SCIENTIFIC RESEARCH ASSOCIATE 07/17/2014 SCIENTIFIC RESEARCH ASSOCIATE 07/31/2014 SCIENTIFIC RESEARCH ASSOCIATE 09/11/2014 CDT Location of INR sample : [...] completed by : WALI Yarbrough RN - 06/04/2015 10:35 SCIENTIFIC RESEARCH ASSOCIATE WALI MCCLELLAN RN - 06/04/2015 10:35 SCIENTIFIC RESEARCH ASSOCIATE WALI MCCLELLAN RN - 06/04/2015 10:35 WALI REYNOLDS RN - 06/04/2015 10:35 SCIENTIFIC RESEARCH ASSOCIATE Date : 09/12/2014 CDT 09/25/2014 CDT 10/02/2014 [...] completed by : WALI Almaguer RN - 06/04/2015 10:35 WALI REYNOLDS RN - 06/04/2015 10:35 WALI REYNOLDS RN - 06/04/2015 10:35 WALI REYNOLDS RN - 06/04/2015 10:35 SCIENTIFIC RESEARCH ASSOCIATE Date : 10/23/2014 CDT 11/13/2014 CDT 11/20/2014 [...] change is she is exercising alot for OANDA/no bleeding/consult with Quintin/Pharmacy and called Mom with orders Per Meredith Hernandez, no changes, has been drinking some Kiwi Juice, no bleeding/consult with Quintin/Pharmacy Called to mom /Fabiola, no changes, [facility] Recommend Recheck : Three weeks One week One week One week Plan completed by : WALI Skinner RN - 06/04/2015 10:35 WALI REYNOLDS RN - 06/04/2015 10:35 WALI REYNOLDS RN - 06/04/2015 10:35 WALI REYNOLDS RN - 06/04/2015 10:35 SCIENTIFIC RESEARCH ASSOCIATE Date : 12/04/2014 CDT 12/18/2014 CDT 01/15/2015 [...] completed by : WALI Cabrera RN - 06/04/2015 10:35 SCIENTIFIC RESEARCH ASSOCIATE WALI MCCLELLAN RN - 06/04/2015 10:35 SCIENTIFIC RESEARCH ASSOCIATE WALI MCCLELLAN RN - 06/04/2015 10:35 SCIENTIFIC RESEARCH ASSOCIATE WALI MCCLELLAN RN - 06/04/2015 10:35 SCIENTIFIC RESEARCH ASSOCIATE Date : 02/05/2015 CDT 02/26/2015 CDT 03/05/2015 [...] completed by : WALI LAWRENCE RN - 06/04/2015 10:35 SCIENTIFIC RESEARCH ASSOCIATE WALI MCCLELLAN RN - 06/04/2015 10:35 SCIENTIFIC RESEARCH ASSOCIATE AWLI MCCLELLAN RN - 06/04/2015 10:35 WALI REYNOLDS RN - 06/04/2015 10:35 SCIENTIFIC RESEARCH ASSOCIATE Date : 04/09/2015 CDT 05/07/2015 SCIENTIFIC RESEARCH ASSOCIATE 06/04/2015 SCIENTIFIC RESEARCH ASSOCIATE Location of INR sample : Lab Lab Lab Type of Sample : Venous Venous Venous INR Result : 2.7 2.4 2.4 Warfarin Dose : 5mg Mon/Thurs, 2.5mg all other days 5mg Mon/Thurs, 2.5mg all other days 5mg Mon & Thurs, 2.5mg all other days Total Weekly Warfarin Dose : 22.5 22.5 22.5 Comment : called to Mom/Fabiola, no changes Orders given and lmtc if changes on Mom/Fabiola's identifiedVM, Orders called to Mom/Fabiola, no changes Recommend Recheck : One month One month One month Plan completed by : WALI Arias RN - 06/04/2015 10:35 SCIENTIFIC RESEARCH ASSOCIATE WALI MCCLELLAN RN - 06/04/2015 10:35 SCIENTIFIC RESEARCH ASSOCIATE WALI MCCLELLAN RN - 06/04/2015 10:35 SCIENTIFIC RESEARCH ASSOCIATE Anticoagulation Assessment / History Visit : Phone management Plan of Care Date : 01/29/2008 CDT Primary Physician Anticoagulation : SRIDHAR HENRIQUEZ MD 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 : DVT Lower, Other: Deep Phlebitis-Leg NEC CHADS2 Score Date : 09/05/2013 CDT WALI MCCLELLAN RN - 06/04/2015 10:35 SCIENTIFIC RESEARCH ASSOCIATE Changes / Problems Changes/Problems Since Last Visit : None Been Scheduled For : None Missed Coumadin Doses : None Change In Intake : None Change In Medication : None Have You Had : None Plans to Travel : No WALI MCCLELLAN RN - 06/04/2015 10:35 SCIENTIFIC RESEARCH ASSOCIATE Source: [facility] POWERCHART Document Id: [id number] SCIENTIFIC RESEARCH ASSOCIATE!457 NTIFIC RESEARCH ASSOCIATE Miscellaneous - Wali Mcclellan - 06/04/2015 10:08 AM CST Results Notification Document Contains Addenda Addendum by WALI MCCLELLAN RN on 04 June 2015 10:40:51 SCIENTIFIC RESEARCH ASSOCIATE Orders called to Mom/Fabiola. From: WALI MCCLELLAN RN ( Anticoagulation Nurse) To: Anticoagulation Nurse; Sent: 06/04/2015 10:08:18 SCIENTIFIC RESEARCH ASSOCIATE Show up: 06/04/2015 10:09:00 SCIENTIFIC RESEARCH ASSOCIATE Subject: Results Notification Results: Date Result Name Value Ref Range 06/04/2015 07:55 PT 27.4 second(s) 06/04/2015 07:55 INR 2.4 INR (0.8 - 1.1) Source: [facility] POWERCHART Document Id: [id number] documented in this encounter Plan of Treatment Not on filedocumented as of this encounter Procedures Procedure Name Priority Date/Time Associated Comments Diagnosis PROTHROMBIN TIME Routine 06/04/2015 7:55 AM Resul ts for this (PT), P SCIENTIFIC RESEARCH ASSOCIATE procedure are i n the results section. documented in this encounter Results (ABNORMAL) PT (Prothrombin Time) with INR (06/04/2015 7:55 AM SCIENTIFIC RESEARCH ASSOCIATE) [facility] Method Time Signature Prothrombin 27.4 SECONDS POWERCHART Time, P INR 2.4 (H) [...] Time Location / / Volume Laterality Blood 06/04/2015 7:55 AM SCIENTIFIC RESEARCH ASSOCIATE Sridhar Henriquez M.D. LAB BLOOD ADD-ON Performing Organization Address City/State/ZIP Code Phon e Number POWERCHART documented in this encounter Visit Diagnoses Not on filedocumented in this encounter
--- OUTSIDE RECORDS SUMMARY | 2022-04-25 16:02 | XMS_ITS | Encounter Summary ---
:1975 Author Organization [facility] Address [address] [place] [id number] Care Team Providers Name Role Phone Unavailable Primary Care Provider Unavailable Encounter Details Date Type Department Care Team Description 07/02/2015 Hospital Encounter HX [facility] Marsha Henriquez M.D. [address] [place], [place] [address] (Wo rk) Social History [...] - - Height 147 cm (4' 9.87) 07/02/2015 10:30 AM CLIENT SERVICES COORDINATOR Body Mass Index - - documented in this encounter Medications at Time of Discharge Medication Sig Dispensed Refills Start Date End Date multivitamin tablet Take 2 tablets by 0 3 mouth daily. FLUORIDE, SODIUM, Apply 1 application 0 3 12/31/2019 DENTAL topically 2 (two) times a day. documented as of this encounter Miscellaneous Notes Miscellaneous - Wali Zapata, R.N. - 07/02/2015 11:34 AM CST Anticoagulation Patient Intake Anticoagulation Patient Intake Entered On: 07/02/2015 11:37 CLIENT SERVICES COORDINATOR Performed On: 07/02/2015 11:34 CLIENT SERVICES COORDINATOR by WALI ZAPATA RN Plan INR goal range : 2.0 - 3.0 Duration of Therapy : Lifelong Tablet Size : 3 mg, 5 mg WALI ZAPATA RN - 07/02/2015 11:34 CLIENT SERVICES COORDINATOR Anticoagulation Management Plan Grid Date : 09/05/2013 [...] darya BURGESS JM WALI Cortez RN - 07/02/2015 11:34 CLIENT SERVICES COORDINATOR WALI ZAPATA RN - 07/02/2015 11:34 CLIENT SERVICES COORDINATOR WALI ZAPATA RN - 07/02/2015 11:34 WALI HARDWICK RN - 07/02/2015 11:34 CLIENT SERVICES COORDINATOR Date : 12/26/2013 CDT 01/30/2014 CDT 03/06/2014 [...] a long time, no bleeding now left [facility] for Fabiola,call if changes Recommend Recheck : Other: 5 weeks Other: 5 weeks Other: 03/10/2014 Other: 03/20/14 Plan completed by : WALI Chau RN - 07/02/2015 11:34 CLIENT SERVICES COORDINATOR WALI ZAPATA RN - 07/02/2015 11:34 WALI HARDWICK RN - 07/02/2015 11:34 WALI HARDWICK RN - 07/02/2015 11:34 CLIENT SERVICES COORDINATOR Date : 03/20/2014 CDT 03/27/2014 CDT 04/10/2014 [...] Other: Plan completed by : darya lackey [facility]/pharmacy WALI ZAPATA RN - 07/02/2015 11:34 CLIENT SERVICES COORDINATOR WALI ZAPATA RN - 07/02/2015 11:34 CLIENT SERVICES COORDINATOR WALI ZAPATA RN - 07/02/2015 11:34 WALI HARDWICK RN - 07/02/2015 11:34 CLIENT SERVICES COORDINATOR Date : 04/17/2014 CDT 04/24/2014 CDT 05/01/2014 CLIENT SERVICES COORDINATOR 05/15/2014 CLIENT SERVICES COORDINATOR Location of INR sample : Lab Lab [...] will trynoted dose called to mom Fabiola [phone] called to Fabiola/no changes Called to mother/Fabiola, not awareof any changes Recommend Recheck : One week One week Two weeks Two weeks Plan completed by : WALI DAVISON RN - 07/02/2015 11:34 WALI HARDWICK RN - 07/02/2015 11:34 CLIENT SERVICES COORDINATOR WALI ZAPATA RN - 07/02/2015 11:34 CLIENT SERVICES COORDINATOR WALI ZAPATA RN - 07/02/2015 11:34 CLIENT SERVICES COORDINATOR Date : 06/03/2014 CLIENT SERVICES COORDINATOR 06/05/2014 CLIENT SERVICES COORDINATOR 06/10/2014 CLIENT SERVICES COORDINATOR 06/11/2014 CLIENT SERVICES COORDINATOR Location of INR sample : Lab Type [...] Fabiola granados. Hue will be staying in [place] 2wks post-surgery & have INR drawn there. [...] completed by : WALI FONTAINE RN - 07/02/2015 11:34 WALI HARDWICK RN - 07/02/2015 11:34 CLIENT SERVICES COORDINATOR WALI ZAPATA RN - 07/02/2015 11:34 WALI HARDWICK RN - 07/02/2015 11:34 CLIENT SERVICES COORDINATOR Date : 06/14/2014 CLIENT SERVICES COORDINATOR 06/14/2014 CLIENT SERVICES COORDINATOR 06/16/2014 CLIENT SERVICES COORDINATOR 06/23/2014 CLIENT SERVICES COORDINATOR Location of INR sample : Clinic Lab Lab Type of Sample : Venous Venous INR Result : 1.3 on 06/13 2.4 faxed from lab 2.0 Warfarin Dose : (pt took 2.5mg 06/13) 5mg Sat and 5mg Sun (06/14 and 06/15) 5mg Mon and 2.5mg all other days 5mg Mon and 2.5mg all other days Total Weekly Warfarin Dose : 20 20 Comment : [facility] lab called with INR result from 06/13, reported they left a message with Dr. Henriquez and hadn't heard back, spoke with mother, Fabiola, and gave doses, continue Lovenox and repeat INR 06/16, message left with INR clinic in to contact CF Please contact [facility] lab on 06/16 for result and may call Fabiola at [phone] with instructions call to Fabiola/will stop Lovenox injections and take noted dose/pt has an appt here in 06/23 so will do lab appt here that day Called to Fabiola/ Hue will be back at [facility] by next draw. will have done on . no changes to meds/diet. Recommend Recheck : Two days One week Two weeks Plan completed by : latasha OZZY WALI MONTANO RN - 07/02/2015 11:34 WALI HARDWICK RN - 07/02/2015 11:34 CLIENT SERVICES COORDINATOR WALI ZAPATA RN - 07/02/2015 11:34 WALI HARDWICK RN - 07/02/2015 11:34 CLIENT SERVICES COORDINATOR Date : 07/10/2014 CLIENT SERVICES COORDINATOR 07/17/2014 CLIENT SERVICES COORDINATOR 07/31/2014 CLIENT SERVICES COORDINATOR 09/11/2014 CDT Location of INR sample : [...] completed by : WALI Bryson RN - 07/02/2015 11:34 CLIENT SERVICES COORDINATOR WALI ZAPATA RN - 07/02/2015 11:34 WALI HARDWICK RN - 07/02/2015 11:34 WALI HARDWICK RN - 07/02/2015 11:34 CLIENT SERVICES COORDINATOR Date : 09/12/2014 CDT 09/25/2014 CDT 10/02/2014 [...] completed by : WALI Lopez RN - 07/02/2015 11:34 CLIENT SERVICES COORDINATOR WALI ZAPATA RN - 07/02/2015 11:34 WALI HARDWICK RN - 07/02/2015 11:34 WALI HARDWICK RN - 07/02/2015 11:34 CLIENT SERVICES COORDINATOR Date : 10/23/2014 CDT 11/13/2014 CDT 11/20/2014 [...] is 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 [employer]/no bleeding/consult with Quintin/Pharmacy and called Mom with orders Per Meredith Hernandez, no changes, has been drinking some Kiwi Juice, no bleeding/consult with Quintin/Pharmacy Called to mom /Fabiola, no changes, [facility] Recommend Recheck : Three weeks One week One week One week Plan completed by : WALI Jeffery RN - 07/02/2015 11:34 CLIENT SERVICES COORDINATOR WALI ZAPATA RN - 07/02/2015 11:34 CLIENT SERVICES COORDINATOR WALI ZAPATA RN - 07/02/2015 11:34 WALI HARDWICK RN - 07/02/2015 11:34 CLIENT SERVICES COORDINATOR Date : 12/04/2014 CDT 12/18/2014 CDT 01/15/2015 [...] 20 22.5 22.5 Comment : called to Mom/Fabioal/no changes or bleeding concerns LM on Fabiola's identified VM/to call ifchanges,questions or concerns Period this past wk & took Midol per mom/Fabiola, no Lovenox per Dr Henriquez, rev'd dose w/[facility]/Pharmacy Called to mom/Fabiola, no changes Recommend Recheck : Two weeks Three weeks One week Two weeks Plan completed by : WALI Boss RN - 07/02/2015 11:34 CLIENT SERVICES COORDINATOR WALI ZAPATA RN - 07/02/2015 11:34 CLIENT SERVICES COORDINATOR WALI ZAPATA RN - 07/02/2015 11:34 CLIENT SERVICES COORDINATOR WALI ZAPATA RN - 07/02/2015 11:34 CLIENT SERVICES COORDINATOR Date : 02/05/2015 CDT 02/26/2015 CDT 03/05/2015 [...] completed by : WALI HAAS RN - 07/02/2015 11:34 CLIENT SERVICES COORDINATOR WALI ZAPATA RN - 07/02/2015 11:34 CLIENT SERVICES COORDINATOR WALI ZAPATA RN - 07/02/2015 11:34 CLIENT SERVICES COORDINATOR WALI ZAPATA RN - 07/02/2015 11:34 CLIENT SERVICES COORDINATOR Date : 04/09/2015 CDT 05/07/2015 CLIENT SERVICES COORDINATOR 06/04/2015 CLIENT SERVICES COORDINATOR 07/02/2015 CLIENT SERVICES COORDINATOR Location of INR sample : Lab Lab [...] Plan completed by : darya lackey JM JK WALI ZAPATA RN - 07/02/2015 11:34 CLIENT SERVICES COORDINATOR WALI ZAPATA RN - 07/02/2015 11:34 CLIENT SERVICES COORDINATOR AWLI ZAPATA RN - 07/02/2015 11:34 CLIENT SERVICES COORDINATOR WALI ZAPATA RN - 07/02/2015 11:34 CLIENT SERVICES COORDINATOR Anticoagulation Assessment / History Visit : Phone management Plan of Care Date : 01/29/2008 CDT Primary Physician Anticoagulation : TASHA HENRIQUEZ MD 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 From: WALI MCCLELLAN RN ( Anticoagulation Nurse) To: Anticoagulation Nurse; Sent: 07/02/2015 11:15:24 CLIENT SERVICES COORDINATOR Show up: 07/02/2015 11:16:00 CLIENT SERVICES COORDINATOR Subject: Results Notification Results: Date Result Name Value Ref Range 07/02/2015 08:00 PT 26.6 second(s) (8.7 - 11.8) 07/02/2015 08:00 INR 2.4 INR (0.9 - 1.1) Source: [facility] POWERCHART Document Id: [id number] Electronically signed by Conversion, [facility] Bank Guard [id number] at 11/19/2016 10:49 AM CDT documented in this encounter Plan of Treatment Not on filedocumented as of this encounter Procedures Procedure Name Priority Date/Time Associated Comments Diagnosis PROTHROMBIN TIME Routine 07/02/2015 8:00 AM Resul ts for this (PT), P CLIENT SERVICES COORDINATOR procedure are i n the results section. documented in this encounter Results (ABNORMAL) PT (Prothrombin Time) with INR (07/02/2015 8:00 AM CLIENT SERVICES COORDINATOR) [facility] gist Method Time Signature Prothrombin 26.6 (H) 8.7 [...] Time Location / / Volume Laterality Blood 07/02/2015 8:00 AM CLIENT SERVICES COORDINATOR Tasha Henriquez M.D. LAB BLOOD ADD-ON Performing Organization Address City/State/ZIP Code Phon e Number POWERCHART documented in this encounter Visit Diagnoses Not on filedocumented in this encounter
--- OUTSIDE RECORDS SUMMARY | 2022-04-25 16:03 | XMS_ITS | Encounter Summary ---
:1975 Author Organization [facility] Address [address] [place] [address] Care Team Providers Name Role Phone Unavailable Primary Care Provider Unavailable Encounter Details Date Type Department Care Team Description 05/15/2014 Hospital Encounter HX [facility] Marsha Henriquez M.D. [address] [place], [place] [address] (Wo rk) Social History [...] of this encounter Miscellaneous Notes Miscellaneous - Sudha Holley R.N. - 05/28/2014 2:05 PM CST Med Management Document Contains Addenda Addendum by JOSIAS ZAPIEN on 29 May 2014 11:34:21 APPLICATION MANAGER l/m to call back. Addendum by CASSIDY ADHIKARI RN on 29 May 2014 08:46:52 APPLICATION MANAGER From: CASSIDY ADHIKARI RN ([facility] Nurse Line) To: Family Medicine [employer]; Sent: 05/29/2014 08:46:52 APPLICATION MANAGER Subject: FW: Med Management Addendum by TASHA HENRIQUEZ MD on 28 May 2014 17:20:51 APPLICATION MANAGER From: TASHA HENRIQUEZ MD Sent: 05/28/2014 17:20:50 APPLICATION MANAGER Subject: RE:Med Management Approved Order:warfarin (warfarin 5 mg oral tablet) See Instructions 5mg Mon, 2.5mg all other days or as directed by the INR clinic as of 04/17/14 Qty: 30 tab(s) Refills: 6 Substitutions Allowed Route To [facility] [id number] Signed by TASHA HENRIQUEZ MD 05/28/2014 17:20:46 Addendum by TASHA HENRIQUEZ MD on 28 May 2014 17:20:41 APPLICATION MANAGER From: TASHA HENRIQUEZ MD To: [facility]; Sent: 05/28/2014 17:20:41 APPLICATION MANAGER Subject: RE: Med Management Refill approved but needs to be seen. Please let him know. Thanks! From: SUDHA ARCOS V RN ( [place] Nurse Line) To: TASHA HENRIQUEZ MD; Sent: 05/28/2014 14:05:12 APPLICATION MANAGER Subject: Med Management On hold pending signature Order:warfarin (warfarin 5 mg oral tablet) See Instructions 5mg Mon, 2.5mg all other days or as directed by the INR clinic as of 04/17/14 Qty: 30 tab(s) Refills: 6 Substitutions Allowed [facility] [id number] Unable to refill per RN refill protocol due to:Due for OV, Last 04/2013. Current coumadin dose as noted in pending Rx. Source: [facility] POWERCHART Document Id: [id number] Electronically signed by Lay, [facility] Centers[facility] [employer] Pipe Gauger [id number] at 11/22/2016 8:01 AM CDT Miscellaneous - Wali Brito - 05/15/2014 12:29 PM CST Anticoagulation Patient Intake Anticoagulation Patient Intake Entered On: 05/15/2014 12:33 APPLICATION MANAGER Performed On: 05/15/2014 12:29 APPLICATION MANAGER by WALI BRITO RN Plan INR goal range : 2.0 - 3.0 Duration of Therapy : Lifelong Tablet Size : 5 mg WALI BRITO RN - 05/15/2014 12:29 APPLICATION MANAGER Anticoagulation Management Plan Grid Date : [...] darya BURGESS JM WALI Ervin RN - 05/15/2014 12:29 APPLICATION MANAGER WALI BRITO RN - 05/15/2014 12:29 APPLICATION MANAGER WALI BRITO RN - 05/15/2014 12:29 APPLICATION MANAGER WALI BRITO RN - 05/15/2014 12:29 APPLICATION MANAGER Date : 12/26/2013 CDT 01/30/2014 CDT [...] completed by : WALI Davidson RN - 05/15/2014 12:29 APPLICATION MANAGER WALI BRITO RN - 05/15/2014 12:29 APPLICATION MANAGER WALI BRITO RN - 05/15/2014 12:29 APPLICATION MANAGER WALI BRITO RN - 05/15/2014 12:29 APPLICATION MANAGER Date : 03/20/2014 CDT 03/27/2014 CDT [...] Other: Plan completed by : darya lackey [facility]/pharmacy WALI BRITO RN - 05/15/2014 12:29 APPLICATION MANAGER WALI BRITO RN - 05/15/2014 12:29 APPLICATION MANAGER WALI RBITO RN - 05/15/2014 12:29 APPLICATION MANAGER WALI BRITO RN - 05/15/2014 12:29 APPLICATION MANAGER Date : 04/17/2014 CDT 04/24/2014 CDT 05/01/2014 APPLICATION MANAGER 05/15/2014 APPLICATION MANAGER Location of INR sample : Lab [...] Weekly Warfarin Dose : 20 Comment : Called to mom/Fabiola, no changes, mom wondering if when splitting the pills not cut exactlyin half so may have gotten extra some days, mom looked at pills & recut them if needed, will trynoted dose called to mom Fabiola [phone] called to Fabiola/no changes Called to mother/Fabiola, not awareof any changes Recommend Recheck : One week One week Two weeks Two weeks Plan completed by : WALI CHOI RN - 05/15/2014 12:29 APPLICATION MANAGER WALI BRITO RN - 05/15/2014 12:29 APPLICATION MANAGER WALI BRITO RN - 05/15/2014 12:29 APPLICATION MANAGER WALI BRITO RN - 05/15/2014 12:29 APPLICATION MANAGER Anticoagulation Assessment / History Visit : Phone management Plan of Care Date : 01/29/2008 CDT Primary Physician Anticoagulation : TASHA HENRIQUEZ MD 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 : DVT Lower, Other: Deep Phlebitis-Leg NEC CHADS2 Score Date : 09/05/2013 CDT WALI BRITO RN - 05/15/2014 12:29 APPLICATION MANAGER Changes / Problems Changes/Problems Since Last Visit : None Been Scheduled For : None Missed Coumadin Doses : None Change In Intake : None Change In Medication : None Have You Had : None Plans to Travel : No WALI BRITO RN - 05/15/2014 12:29 APPLICATION MANAGER Source: [facility] POWERCHART Document Id: [id number] APPLICATION MANAGER!176 ICATION MANAGER Miscellaneous - Wali Brito - 05/15/2014 10:19 AM CST Results Notification Document Contains Addenda Addendum by WALI BRITO RN on 15 May 2014 12:35:12 APPLICATION MANAGER Orders called to mother/Fabiola. From: WALI BRITO RN ( Anticoagulation Nurse) To: Anticoagulation Nurse; Sent: 05/15/2014 10:19:45 APPLICATION MANAGER Show up: 05/15/2014 10:20:00 APPLICATION MANAGER Subject: Results Notification Results: Date Result Name Value Ref Range 05/15/2014 08:15 PT 20.2 second(s) 05/15/2014 08:15 INR 1.8 INR (0.8 - 1.1) Source: [facility] POWERCHART Document Id: [id number] documented in this encounter Plan of Treatment Not on filedocumented as of this encounter Procedures Procedure Name Priority Date/Time Associated Comments Diagnosis PROTHROMBIN TIME Routine 05/15/2014 8:15 AM Resul ts for this (PT), P APPLICATION MANAGER procedure are i n the results section. documented in this encounter Results (ABNORMAL) PT (Prothrombin Time) with INR (05/15/2014 8:15 AM APPLICATION MANAGER) [facility] Method Time Signature Prothrombin 20.2 SECONDS POWERCHART Time, P INR 1.8 (H) 0.8 - 1.1 POWERCHART INR Comment: Recommended INR for prophylaxis/treatmen t of Venous Thrombosis, Pulmonary Embolism, Myocardial Infarction, and Embolism from Atrial Fibrillation is 2.0- 3.0 (Standard Therapy) Recommended INR for Mechanical Heart Tejal ves and recurrent Systemic Embolism is 2.5-3.5 (Intensive Therapy) Specimen (Source) Anatomical Collection Method Collection Time Re ceived Time Location / / Volume Laterality Blood 05/15/2014 8:15 AM APPLICATION MANAGER Tasha Henriquez M.D. LAB BLOOD ADD-ON Performing Organization Address City/State/ZIP Code Phon e Number POWERCHART documented in this encounter Visit Diagnoses Not on filedocumented in this encounter
--- OUTSIDE RECORDS SUMMARY | 2022-04-25 16:03 | XMS_ITS | Encounter Summary ---
:1975 Author Organization [facility] Address [address] [place] [address] Care Team Providers Name Role Phone Unavailable Primary Care Provider Unavailable Encounter Details Date Type Department Care Team Description 04/24/2014 Hospital Encounter HX [facility] Marsha Henriquez M.D. [address] [place], [place] [address] (Wo rk) Social History [...] this encounter Miscellaneous Notes Miscellaneous - Sudha Farooq, RMichaelN. - 04/24/2014 2:57 PM CDT Anticoagulation Patient Intake Anticoagulation Patient Intake Entered On: 04/24/2014 15:01 CDT Performed On: 04/24/2014 14:57 CDT by SUDHA FAROOQ RN Plan INR goal range : 2.0 - 3.0 Duration of Therapy : Lifelong Tablet Size : 5 mg SUDHA FAROOQ RN - 04/24/2014 14:57 CDT Anticoagulation Management Plan Grid Date : [...] weeks Two weeks Plan completed by : SUDHA Middleton RN - 04/24/2014 14:57 CDT SUDHA FAROOQ RN - 04/24/2014 14:57 CDT SUDHA FAROOQ RN - 04/24/2014 14:57 CDT SUDHA FAROOQ RN - 04/24/2014 14:57 CDT Date : 12/26/2013 CDT 01/30/2014 CDT [...] 03/10/2014 Other: 03/20/14 Plan completed by : SUDHA Contreras RN - 04/24/2014 14:57 CDT SUDHA FAROOQ RN - 04/24/2014 14:57 CDSUDHA KINGSTON RN - 04/24/2014 14:57 CDT SUDHA FAROOQ RN - 04/24/2014 14:57 CDT Date : 03/20/2014 CDT 03/27/2014 CDT [...] Mom, she is going to check with Heu to see if she is drinking Cranberry [...] completed by : darya lackey LM /pharmacy SUDHA FAROOQ RN - 04/24/2014 14:57 CDT SUDHA FAROOQ RN - 04/24/2014 14:57 CDT SUDHA FAROOQ RN - 04/24/2014 14:57 CDT SUDHA FAROOQ RN - 04/24/2014 14:57 CDT Date : 04/17/2014 CDT 04/24/2014 CDT Location of INR sample : Lab Lab Type of Sample : Venous Venous INR Result : 2.2 3.0 Warfarin Dose : 5mg Mon, 2.5mg all other days 5mg MON with 2.5mg all other days - eat a salad today Total Weekly Warfarin Dose : 20 20 Comment : Called to mom/Fabiola, no changes, mom wondering if when splitting the pills not cut exactlyin half so may have gotten extra some days, mom looked at pills & recut them if needed, will trynoted dose called to mom Fabiola [phone] Recommend Recheck : One week One week Plan completed by : SUDHA JAMES RN - 04/24/2014 14:57 CDT SUDHA FAROOQ RN - 04/24/2014 14:57 CDT Anticoagulation Assessment / History Visit : Follow Up Plan of Care Date : 01/29/2008 CDT Primary Physician Anticoagulation : TASHA HENRIQUEZ MD 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 : DVT Lower, Other: Deep Phlebitis-Leg NEC CHADS2 Score Date : 09/05/2013 CDT SUDHA FAROOQ RN - 04/24/2014 14:57 CDT Changes / Problems Changes/Problems Since Last Visit : None Been Scheduled For : None Missed Coumadin Doses : None Change In Intake : None Change In Medication : None Have You Had : None Plans to Travel : No SUDHA FAROOQ RN - 04/24/2014 14:57 CDT Source: [facility] Document Id: [id number] CDT!156 Miscellaneous - Sudha Farooq RMichaelNMichael - 04/24/2014 1:49 PM CDT Anticoagulation Patient Intake Anticoagulation Patient Intake Entered On: 04/24/2014 13:51 CDT Performed On: 04/24/2014 13:49 CDT by SUDHA FRAOOQ RN Plan INR goal range : 2.0 - 3.0 Duration of Therapy : Lifelong Tablet Size : 5 mg SUDHA FAROOQ RN - 04/24/2014 13:49 CDT Anticoagulation Management Plan Grid Date : [...] weeks Two weeks Plan completed by : SUDHA Middleton RN - 04/24/2014 13:49 CDT SUDHA FAROOQ RN - 04/24/2014 13:49 SUDHA MENDIETA RN - 04/24/2014 13:49 CDT SUDHA FAROOQ RN - 04/24/2014 13:49 CDT Date : 12/26/2013 CDT 01/30/2014 CDT [...] 03/10/2014 Other: 03/20/14 Plan completed by : SUDHA Contreras RN - 04/24/2014 13:49 CDT SUDHA FAROOQ RN - 04/24/2014 13:49 CDT SUDHA FAROOQ RN - 04/24/2014 13:49 CDT SUDHA FAROOQ RN - 04/24/2014 13:49 CDT Date : 03/20/2014 CDT 03/27/2014 CDT [...] Plan completed by : darya lackey [facility]/pharmacy SUDHA FAROOQ RN - 04/24/2014 13:49 CDT SUDHA FAROOQ RN - 04/24/2014 13:49 CDT SUDHA FAROOQ RN - 04/24/2014 13:49 CDT SUDHA FAROOQ RN - 04/24/2014 13:49 CDT Date : 04/17/2014 CDT Location of INR sample : Lab Type of Sample : Venous INR Result : 2.2 Warfarin Dose : 5mg Mon, 2.5mg all other days Total Weekly Warfarin Dose : 20 Comment : Called to mom/Fabiola, no changes, mom wondering if when splitting the pills not cut exactlyin half so may have gotten extra some days, mom looked at pills & recut them if needed, will trynoted dose Recommend Recheck : One week Plan completed by : SUDHA DOMINIQUE RN - 04/24/2014 13:49 CDT Source: [facility] POWERCHART Document Id: [id number] CDT!131 Miscellaneous - Khadar Mdeina R.N. - 04/24/2014 11:20 AM CDT Results Notification Document Contains Addenda Addendum by SUDHA FAROOQ RN on 25 April 2014 09:38:14 CDT Done Addendum by SUDHA FAROOQ RN on 24 April 2014 13:53:04 CDT [facility] From: KHADAR MEDINA RN ( Anticoagulation Nurse) To: Anticoagulation Nurse; Sent: 04/24/2014 11:20:21 CDT Show up: 04/24/2014 11:21:00 CDT Subject: Results Notification Results: Date Result Name Value Ref Range 04/24/2014 08:00 PT 33.7 second(s) (8.7 - 11.8) 04/24/2014 08:00 INR 3.0 INR (0.9 - 1.1) Source: [facility] POWERCHART Document Id: [id number] Electronically signed by Conversion, [facility] Security Intelligence Analyst [id number] at 11/22/2016 2:10 AM CDT documented in this encounter Plan of Treatment Not on filedocumented as of this encounter Procedures Procedure Name Priority Date/Time Associated Comments Diagnosis PROTHROMBIN TIME Routine 04/24/2014 8:00 AM Resul ts for this (PT), P CDT procedure are i n the results section. documented in this encounter Results (ABNORMAL) PT (Prothrombin Time) with INR (04/24/2014 8:00 AM CDT) [facility] gist Method Time Signature Prothrombin 33.7 (H) 8.7 - 11.8 POWERCHART Time, P SECONDS INR 3.0 (H) 0.9 - 1.1 POWERCHART INR Comment: Recommended INR for prophylaxis/treatmen t of Venous Thrombosis, Pulmonary Embolism, Myocardial Infarction, and Embolism from Atrial Fibrillation is 2.0- 3.0 (Standard Therapy) Recommended INR for Mechanical Heart Tejal ves and recurrent Systemic Embolism is 2.5-3.5 (Intensive Therapy) Specimen (Source) Anatomical Collection Method Collection Time Re ceived Time Location / / Volume Laterality Blood 04/24/2014 8:00 AM CDT Tasha Henriquez M.D. LAB BLOOD ADD-ON Performing Organization Address City/State/ZIP Code Phon e Number POWERCHART documented in this encounter Visit Diagnoses Not on filedocumented in this encounter
--- OUTSIDE RECORDS SUMMARY | 2022-04-25 16:03 | XMS_ITS | Encounter Summary ---
:1975 Author Organization [facility] Address [address] [place] [address] Care Team Providers Name Role Phone Unavailable Primary Care Provider Unavailable Encounter Details Date Type Department Care Team Description 06/23/2014 Hospital Encounter [facility]X [facility] Marsha Henriquez M.D. [address] [place], [place] [address] (Wo rk) Social History [...] Concentration - - Weight - - Height 157 cm (5' 1.81) 06/23/2014 9:12 AM CLINICAL NURSING INTERN Body Mass Index - - documented in this encounter Medications at Time of Discharge Medication Sig Dispensed Refills Start Date End Date multivitamin tablet Take 2 tablets by 0 3 mouth daily. FLUORIDE, SODIUM, Apply 1 application 0 3 12/31/2019 DENTAL topically 2 (two) times a day. documented as of this encounter Miscellaneous Notes Miscellaneous - Sudha Holley R.N. - 06/23/2014 9:46 AM CST Anticoagulation Patient Intake Anticoagulation Patient Intake Entered On: 06/23/2014 9:48 CLINICAL NURSING INTERN Performed On: 06/23/2014 9:46 CLINICAL NURSING INTERN by SUDHA ARCOS RN Plan INR goal range : 2.0 - 3.0 Duration of Therapy : Lifelong Tablet Size : 5 mg SUDHA ARCOS RN - 06/23/2014 9:46 CLINICAL NURSING INTERN Anticoagulation Management Plan Grid Date : 09/05/2013 [...] Plan completed by : darya BURGESS JM SUDHA Chan V RN - 06/23/2014 9:46 CLINICAL NURSING INTERN SUDHA ARCOS RN - 06/23/2014 9:46 CLINICAL NURSING INTERN SUDHA ARCOS V RN - 06/23/2014 9:46 CLINICAL NURSING INTERN SUDHA ARCOS RN - 06/23/2014 9:46 CLINICAL NURSING INTERN Date : 12/26/2013 CDT 01/30/2014 CDT 03/06/2014 [...] Other: 03/20/14 Plan completed by : SUDHA Richey V RN - 06/23/2014 9:46 CLINICAL NURSING INTERN SUDHA ARCOS V RN - 06/23/2014 9:46 CLINICAL NURSING INTERN SUDHA ARCOS V RN - 06/23/2014 9:46 CLINICAL NURSING INTERN SUDHA ARCOS V RN - 06/23/2014 9:46 CLINICAL NURSING INTERN Date : 03/20/2014 CDT 03/27/2014 CDT 04/10/2014 [...] darya lackey [facility]/pharmacy SUDHA ARCOS V RN - 06/23/2014 9:46 CLINICAL NURSING INTERN SUDHA ARCOS V RN - 06/23/2014 9:46 CLINICAL NURSING INTERN SUDHA ARCOS V RN - 06/23/2014 9:46 CLINICAL NURSING INTERN SUDHA ARCOS RN - 06/23/2014 9:46 CLINICAL NURSING INTERN Date : 04/17/2014 CDT 04/24/2014 CDT 05/01/2014 CLINICAL NURSING INTERN 05/15/2014 CLINICAL NURSING INTERN Location of INR sample : Lab [...] will trynoted dose called to mom Fabiola [phone] called to Fabiola/no changes Called to mother/Fabiola, not awareof any changes Recommend Recheck : One week One week Two weeks Two weeks Plan completed by : SUDHA DURANT V RN - 06/23/2014 9:46 CLINICAL NURSING INTERN SUDHA ARCOS V RN - 06/23/2014 9:46 CLINICAL NURSING INTERN SUDHA ARCOS V RN - 06/23/2014 9:46 CLINICAL NURSING INTERN SUDHA ARCOS V RN - 06/23/2014 9:46 CLINICAL NURSING INTERN Date : 06/03/2014 CLINICAL NURSING INTERN 06/05/2014 CLINICAL NURSING INTERN 06/10/2014 CLINICAL NURSING INTERN 06/11/2014 CLINICAL NURSING INTERN Location of INR sample : Lab [...] Called motherFabiola. Hue will be staying in [place] 2wks post-surgery & have INR drawn there. [...] 06/18 Other: 06/13/14 Plan completed by : SUDHA MCINTOSH RN - 06/23/2014 9:46 CLINICAL NURSING INTERN SUDHA ARCOS RN - 06/23/2014 9:46 CLINICAL NURSING INTERN SUDHA ARCOS RN - 06/23/2014 9:46 CLINICAL NURSING INTERN SUDHA ARCOS RN - 06/23/2014 9:46 CLINICAL NURSING INTERN Date : 06/14/2014 CLINICAL NURSING INTERN 06/14/2014 CLINICAL NURSING INTERN 06/16/2014 CLINICAL NURSING INTERN 06/23/2014 CLINICAL NURSING INTERN Location of INR sample : Clinic [...] Dose : 20 20 Comment : [place] lab called with INR result from 06/13, reported they left a message with Dr. Henriquez and hadn't heard back, spoke with mother, Fabiola, and gave doses, continue Lovenox and repeat INR 06/16, message left with INR clinic in to contact CF Please contact [facility] on 06/16 for result and may call Fabiola at [phone] with instructions call to Fabiola/will stop Lovenox injections and take noted dose/pt has an appt here in [place] 06/23 so will do lab appt here that day Called to Fabiola/ Hue will be back at [facility] by next draw. will have done on . no changes to meds/diet. 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 : DVT Lower, Other: Deep Phlebitis-Leg NEC CHADS2 Score Date : 09/05/2013 CDT SUDHA ARCOS RN - 06/23/2014 9:46 CLINICAL NURSING INTERN Changes / Problems Changes/Problems Since Last Visit : None Been Scheduled For : None Missed Coumadin Doses : None Change In Intake : None Change In Medication : None Have You Had : None Plans to Travel : No SUDHA ARCOS RN - 06/23/2014 9:46 CLINICAL NURSING INTERN Source: [facility] [employer] Document Id: [id number] CLINICAL NURSING INTERN!234 ICAL NURSING INTERN Miscellaneous - Sudha Holley R.N. - 06/23/2014 9:44 AM CST Results Notification Document Contains Addenda Addendum by SUDHA ARCOS RN on 23 June 2014 09:49:30 CLINICAL NURSING INTERN called to pt's mom. From: SUDHA ARCOS V RN ( Anticoagulation Nurse) To: Anticoagulation Nurse; Sent: 06/23/2014 09:44:13 CLINICAL NURSING INTERN Show up: 06/23/2014 09:45:00 CLINICAL NURSING INTERN Subject: Results Notification Results: Date Result Name Value Ref Range 06/23/2014 09:18 PT 21.0 second(s) (8.7 - 11.8) 06/23/2014 09:18 INR 2.0 INR (0.9 - 1.1) Source: [facility] [employer] Document Id: [id number] documented in this encounter Plan of Treatment Not on filedocumented as of this encounter Procedures Procedure Name Priority Date/Time Associated Comments Diagnosis PROTHROMBIN TIME Routine 06/23/2014 9:18 AM Resul ts for this (PT), P CLINICAL NURSING INTERN procedure are i n the results section. documented in this encounter Results (ABNORMAL) PT (Prothrombin Time) with INR (06/23/2014 9:18 AM CLINICAL NURSING INTERN) [facility] Method Time Signature Prothrombin 21.0 (H) 8.7 - 11.8 POWERCHART Time, P [...] Time Location / / Volume Laterality Blood 06/23/2014 9:18 AM CLINICAL NURSING INTERN Tasha Henriquez M.D. LAB BLOOD ADD-ON Performing Organization Address City/State/ZIP Code Phon e Number POWERCHART documented in this encounter Visit Diagnoses Not on filedocumented in this encounter
--- OUTSIDE RECORDS SUMMARY | 2022-04-25 16:03 | XMS_ITS | Encounter Summary ---
:1975 Author Organization [facility] Address [address] [place] [address] Care Team Providers Name Role Phone Unavailable Primary Care Provider Unavailable Encounter Details Date Type Department Care Team Description 04/10/2014 Hospital Encounter HX [facility] Marsha Henriquez M.D. [address] [place], [place] [address] (Wo rk) Social History [...] Notes Miscellaneous - Sudha Holley R.N. - 04/10/2014 2:46 PM CDT Anticoagulation Patient Intake Anticoagulation Patient Intake Entered On: 04/10/2014 14:48 CDT Performed On: 04/10/2014 14:46 CDT by SUDHA ARCOS RN Plan INR goal range : 2.0 - 3.0 Duration of Therapy : Lifelong Tablet Size : 5 mg SUDHA ARCOS RN - 04/10/2014 14:46 CDT Anticoagulation Management Plan Grid Date : [...] Two weeks Plan completed by : SUDHA Alvarez RN - 04/10/2014 14:46 CDT SUDHA ARCOS RN - 04/10/2014 14:46 CDT USDHA ARCOS RN - 04/10/2014 14:46 CDT SUDHA ARCOS RN - 04/10/2014 14:46 CDT Date : 12/26/2013 CDT 01/30/2014 CDT [...] long time, no bleeding now left [facility] for Fabiola,call if changes Recommend Recheck : Other: 5 weeks Other: 5 weeks Other: 03/10/2014 Other: 03/20/14 Plan completed by : SUDHA Richey RN - 04/10/2014 14:46 CDT SUDHA ARCOS RN - 04/10/2014 14:46 CDT SUDHA ARCOS RN - 04/10/2014 14:46 CDT SUDHA ARCOS RN - 04/10/2014 14:46 CDT Date : 03/20/2014 CDT 03/27/2014 CDT 04/10/2014 CDT Location of INR sample : Lab Lab Lab Type of Sample : Venous Venous Venous INR Result : 3.8 3.2 5.3 Warfarin Dose : HOLD 03/20, then 5mg Mon/Mon, 2.5mg all other days 5mg Mon/Mon, 2.5mg all other days Hold 04/10-04/11 Total Weekly Warfarin Dose : 22.5 Comment [...] instructed to be seen if bleeding occurs. 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 - 04/10/2014 11:51 AM CDT Communication Note Communication Note Entered On: 04/10/2014 11:55 CDT Performed On: 04/10/2014 11:51 CDT by LIBIA HERNANDEZ LPN Communication Subject of Note : Critical Test Result Assessment Communication Note : INR 5.3 critical lab result given to Dr. Penny in Dr. Gaxiola absence, as well as walked the informationover to the INR clinic in [facility] and gave to ANGELINE Monroy Intervention : Physician/Provider notified, Protocol initiated, Read back order, Other: also notified the INR clinic, Sudha MARCUS Name of provider notified : JOSIAS CAMPBELL MD Name of provider notified d/t : 04/10/2014 11:43 CDT LIBIA HERNANDEZ LPN - 04/10/2014 11:51 CDT Source: [facility] POWERCHART Document Id: [id number] CDT!7 [place] - Sudha Holley R.N. - 04/10/2014 11:47 AM CDT Results Notification Document Contains Addenda Addendum by SUDHA ARCOS RN on 10 April 2014 14:50:44 CDT called to pt's mom Addendum by SUDHA ARCOS RN on 10 April 2014 11:55:41 CDT Spoke to mother , no bleeding will call us back when she gets the names of the meds she's been on for Dental. Addendum by SUDHA ARCOS RN on 10 April 2014 11:52:09 CDT LMTC. Libia Heard from Family practice stated she will give Critical value to Linda Lemus when she comes out of the room. From: SUDHA ARCOS RN ( Anticoagulation Nurse) To: Anticoagulation Nurse; Sent: 04/10/2014 11:47:50 CDT Show up: 04/10/2014 11:48:00 CDT Subject: Results Notification Results: Date Result Name Value Ref Range 04/10/2014 08:15 PT 64.1 second(s) (8.7 - 11.8) 04/10/2014 08:15 INR 5.3 INR (0.9 - 1.1) Source: [facility] POWERCHART Document Id: [id number] Electronically signed by Conversion, [facility] Special Procedure Tech [id number] at 11/22/2016 2:10 AM CDT documented in this encounter Plan of Treatment Not on filedocumented as of this encounter Procedures Procedure Name Priority Date/Time Associated Comments Diagnosis PROTHROMBIN TIME Routine 04/10/2014 8:15 AM Resul ts for this (PT), P CDT procedure are i n the results section. documented in this encounter Results (ABNORMAL) PT (Prothrombin Time) with INR (04/10/2014 8:15 AM CDT) [facility] Method Time Signature Prothrombin 64.1 (H) 8.7 - 11.8 POWERCHART Time, P SECONDS INR 5.3 (C) 0.9 - 1.1 POWERCHART INR Comment: Critical results called to Libia Hernandez RN at 04/10/2014 11:43:49 CDT, by . Critical lab value read back yes. Specimen (Source) Anatomical Collection Method Collection Time Re ceived Time Location / / Volume Laterality Blood 04/10/2014 8:15 AM CDT Tasha Henriquez M.D. LAB BLOOD ADD-ON Performing Organization Address City/State/ZIP Code Phon e Number POWERCHART documented in this encounter Visit Diagnoses Not on filedocumented in this encounter
--- OUTSIDE RECORDS SUMMARY | 2022-04-25 16:03 | XMS_ITS | Encounter Summary ---
:1975 Author Organization [facility] Address [address] [place] [address] Care Team Providers Name Role Phone Unavailable Primary Care Provider Unavailable Encounter Details Date Type Department Care Team Description 10/09/2014 Hospital Encounter [facility]X [facility] Marsha Henriquez M.D. [address] [place], [place] [address] (Wo rk) Social History [...] - - Height 157 cm (5' 1.81) 10/09/2014 7:09 AM CDT Body Mass Index - - documented in this encounter Medications at Time of Discharge Medication Sig Dispensed Refills Start Date End Date multivitamin tablet Take 2 tablets by 0 3 mouth daily. FLUORIDE, SODIUM, Apply 1 application 0 3 12/31/2019 DENTAL topically 2 (two) times a day. documented as of this encounter Miscellaneous Notes Miscellaneous - Khadar Banda, RMichaelN. - 10/09/2014 10:25 AM CDT Anticoagulation Patient Intake Anticoagulation Patient Intake Entered On: 10/09/2014 10:26 CDT Performed On: 10/09/2014 10:25 CDT by KHADAR BANDA RN Plan INR goal range : 2.0 - 3.0 Duration of Therapy : Lifelong Tablet Size : 5 mg KHADAR BANDA RN - 10/09/2014 10:25 CDT KHADAR BANDA RN - 10/09/2014 10:25 CDT Anticoagulation Management Plan Grid Date : [...] darya BURGESS JM KHADAR Mae RN - 10/09/2014 10:25 CDT KHADAR BANDA RN - 10/09/2014 10:25 CDT KHADAR BANDA RN - 10/09/2014 10:25 CDT KHADAR BANDA RN - 10/09/2014 10:25 CDT Date : 12/26/2013 CDT 01/30/2014 CDT [...] PATRICE lackey NB KHADAR BANDA RN - 10/09/2014 10:25 CDT KHADAR BANDA RN - 10/09/2014 10:25 CDT KHADAR BANDA RN - 10/09/2014 10:25 CDT KHADAR BANDA RN - 10/09/2014 10:25 CDT Date : 03/20/2014 CDT 03/27/2014 CDT [...] Plan completed by : darya lackey [facility]/pharmacy KHADAR BANDA RN - 10/09/2014 10:25 CDT KHADAR BANDA RN - 10/09/2014 10:25 CDT KHADAR BANDA RN - 10/09/2014 10:25 CDT KHADAR BANDA RN - 10/09/2014 10:25 CDT Date : 04/17/2014 CDT 04/24/2014 CDT 05/01/2014 CONTENT DEVELOPMENT SPECIALIST 05/15/2014 CONTENT DEVELOPMENT SPECIALIST Location of INR sample : Lab [...] will trynoted dose called to mom Fabiola [phone] called to Fabiola/no changes Called to mother/Fabiola, not awareof any changes Recommend Recheck : One week One week Two weeks Two weeks Plan completed by : KHADAR HACKETT RN - 10/09/2014 10:25 CDT KHADAR BANDA RN - 10/09/2014 10:25 CDT KHADAR BANDA RN - 10/09/2014 10:25 CDT KHDAAR BANDA RN - 10/09/2014 10:25 CDT Date : 06/03/2014 CONTENT DEVELOPMENT SPECIALIST 06/05/2014 CONTENT DEVELOPMENT SPECIALIST 06/10/2014 CONTENT DEVELOPMENT SPECIALIST 06/11/2014 CONTENT DEVELOPMENT SPECIALIST Location of INR sample : Lab [...] Fabiola granados. Hue will be staying in [place] 2wks post-surgery & have INR drawn there. [...] tomorrow AM as ordered. INR in [place] for next several weeks as pt will be recovering there. Recommend Recheck : Other: depending on Dr. Henriquez's preop. Other: 06/18 Other: 06/13/14 Plan completed by : KHADAR SANDERS RN - 10/09/2014 10:25 CDT KHADAR BANDA RN - 10/09/2014 10:25 CDT KHADAR BANDA RN - 10/09/2014 10:25 CDT KHADAR BANDA RN - 10/09/2014 10:25 CDT Date : 06/14/2014 CONTENT DEVELOPMENT SPECIALIST 06/14/2014 CONTENT DEVELOPMENT SPECIALIST 06/16/2014 CONTENT DEVELOPMENT SPECIALIST 06/23/2014 CONTENT DEVELOPMENT SPECIALIST Location of INR sample : Clinic [...] Dose : 20 20 Comment : [place] lab called with INR result from 06/13, reported they left a message with Dr. Henriquez and hadn't heard back, spoke with mother, Fabiola, and gave doses, continue Lovenox and repeat INR 06/16, message left with INR clinic in to contact CF Please contact [place] lab on 06/16 for result and may call Fabiola at [phone] with instructions call to Fabiola/will stop Lovenox injections and take noted dose/pt has an appt here in [place] 06/23 so will do lab appt here that day Called to Fabiola/ Hue will be back at [facility] by next draw. will have done on . no changes to meds/diet. Recommend Recheck : Two days One week Two weeks Plan completed by : latasha OZZY KHADAR VILLAFUERTE RN - 10/09/2014 10:25 CDT KHADAR BANDA RN - 10/09/2014 10:25 CDT KHADAR BANDA RN - 10/09/2014 10:25 CDT KHADAR BANDA RN - 10/09/2014 10:25 CDT Date : 07/10/2014 CONTENT DEVELOPMENT SPECIALIST 07/17/2014 CONTENT DEVELOPMENT SPECIALIST 07/31/2014 CONTENT DEVELOPMENT SPECIALIST 09/11/2014 CDT Location of INR sample [...] darya BoyceK ly KHADAR GUSTAFSON RN - 10/09/2014 10:25 CDT KHADAR BANDA RN - 10/09/2014 10:25 CDT KHADAR BANDA RN - 10/09/2014 10:25 CDT KHADAR BANDA RN - 10/09/2014 10:25 CDT Date : 09/12/2014 CDT 09/25/2014 CDT [...] completed by : KHADAR Rondon RN - 10/09/2014 10:25 CDT KHADAR BANDA RN - 10/09/2014 10:25 CDT KHADAR BANDA RN - 10/09/2014 10:25 CDT KHADAR BANDA RN - 10/09/2014 10:33 CDT Anticoagulation Assessment / History Visit : Phone management Plan of Care Date : 01/29/2008 CDT Primary Physician Anticoagulation : TASHA HENRIQUEZ MD 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 - 10/09/2014 10:24 AM CDT Results Notification From: KHADAR BANDA RN ( Anticoagulation Nurse) To: Anticoagulation Nurse; Sent: 10/09/2014 10:24:02 CDT Show up: 10/09/2014 10:24:00 CDT Subject: Results Notification Results: Date Result Name Value Ref Range 10/09/2014 08:02 PT 27.9 second(s) 10/09/2014 08:02 INR 2.5 INR (0.8 - 1.1) Source: [facility] POWERCHART Document Id: [id number] documented in this encounter Plan of Treatment Not on filedocumented as of this encounter Procedures Procedure Name Priority Date/Time Associated Comments Diagnosis PROTHROMBIN TIME Routine 10/09/2014 8:02 AM Resul ts for this (PT), P CDT procedure are i n the results section. documented in this encounter Results (ABNORMAL) PT (Prothrombin Time) with INR (10/09/2014 8:02 AM CDT) [facility] Method Time Signature Prothrombin 27.9 SECONDS POWERCHART Time, P INR 2.5 (H) 0.8 - 1.1 POWERCHART INR Comment: Recommended INR for prophylaxis/treatmen t of Venous Thrombosis, Pulmonary Embolism, Myocardial Infarction, and Embolism from Atrial Fibrillation is 2.0- 3.0 (Standard Therapy) Recommended INR for Mechanical Heart Tejal ves and recurrent Systemic Embolism is 2.5-3.5 (Intensive Therapy) Specimen (Source) Anatomical Collection Method Collection Time Re ceived Time Location / / Volume Laterality Blood 10/09/2014 8:02 AM CDT Tasha Henriquez M.D. LAB BLOOD ADD-ON Performing Organization Address City/State/ZIP Code Phon e Number POWERCHART documented in this encounter Visit Diagnoses Not on filedocumented in this encounter
--- OUTSIDE RECORDS SUMMARY | 2022-04-25 16:03 | XMS_ITS | Encounter Summary ---
:1975 Author Organization [facility] Address [address] [place] [id number] Care Team Providers Name Role Phone Unavailable Primary Care Provider Unavailable Encounter Details Date Type Department Care Team Description 07/31/2014 Hospital Encounter HX [facility] Marsha Henriquez M.D. [address] [place], [place] [address] (Wo rk) Social [...] - - Height 157 cm (5' 1.81) 07/31/2014 7:19 AM SURGICAL PRODUCT SALES CONSULTANT Body Mass Index - - documented in this encounter Medications at Time of Discharge Medication Sig Dispensed Refills Start Date End Date multivitamin tablet Take 2 tablets by 0 3 mouth daily. FLUORIDE, SODIUM, Apply 1 application 0 3 12/31/2019 DENTAL topically 2 (two) times a day. documented as of this encounter Miscellaneous Notes Miscellaneous - Khadar Banda RViktor - 07/31/2014 12:17 PM CST Anticoagulation Patient Intake Anticoagulation Patient Intake Entered On: 07/31/2014 12:20 SURGICAL PRODUCT SALES CONSULTANT Performed On: 07/31/2014 12:17 SURGICAL PRODUCT SALES CONSULTANT by KHADAR BANDA RN Plan INR goal range : 2.0 - 3.0 Duration of Therapy : Lifelong Tablet Size : 5 mg KHADAR BANDA RN - 07/31/2014 12:17 SURGICAL PRODUCT SALES CONSULTANT Anticoagulation Management Plan Grid Date : 09/05/2013 [...] completed by : KHADAR Manning RN - 07/31/2014 12:17 SURGICAL PRODUCT SALES CONSULTANT KHADAR BANDA RN - 07/31/2014 12:17 SURGICAL PRODUCT SALES CONSULTANT KHADAR BANDA RN - 07/31/2014 12:17 SURGICAL PRODUCT SALES CONSULTANT KHADAR BANDA RN - 07/31/2014 12:17 SURGICAL PRODUCT SALES CONSULTANT Date : 12/26/2013 CDT 01/30/2014 CDT 03/06/2014 [...] completed by : KHADAR Cho RN - 07/31/2014 12:17 SURGICAL PRODUCT SALES CONSULTANT KHADAR BANDA RN - 07/31/2014 12:17 SURGICAL PRODUCT SALES CONSULTANT KHADAR BANDA RN - 07/31/2014 12:17 SURGICAL PRODUCT SALES CONSULTANT KHADAR BANDA RN - 07/31/2014 12:17 SURGICAL PRODUCT SALES CONSULTANT Date : 03/20/2014 CDT 03/27/2014 CDT 04/10/2014 [...] Other: Plan completed by : darya lackey [facility]/pharmacy KHADAR BANDA RN - 07/31/2014 12:17 SURGICAL PRODUCT SALES CONSULTANT KHADAR BANDA RN - 07/31/2014 12:17 SURGICAL PRODUCT SALES CONSULTANT KHADAR BANDA RN - 07/31/2014 12:17 SURGICAL PRODUCT SALES CONSULTANT KHADAR BANDA RN - 07/31/2014 12:17 SURGICAL PRODUCT SALES CONSULTANT Date : 04/17/2014 CDT 04/24/2014 CDT 05/01/2014 SURGICAL PRODUCT SALES CONSULTANT 05/15/2014 SURGICAL PRODUCT SALES CONSULTANT Location of INR sample : Lab Lab [...] will trynoted dose called to mom Fabiola [phone] called to Fabiola/no changes Called to mother/Fabiola, not awareof any changes Recommend Recheck : One week One week Two weeks Two weeks Plan completed by : KHADAR HACKETT RN - 07/31/2014 12:17 SURGICAL PRODUCT SALES CONSULTANT KHADAR BANDA RN - 07/31/2014 12:17 SURGICAL PRODUCT SALES CONSULTANT KHADAR BANDA RN - 07/31/2014 12:17 SURGICAL PRODUCT SALES CONSULTANT KHADAR BANDA RN - 07/31/2014 12:17 SURGICAL PRODUCT SALES CONSULTANT Date : 06/03/2014 SURGICAL PRODUCT SALES CONSULTANT 06/05/2014 SURGICAL PRODUCT SALES CONSULTANT 06/10/2014 SURGICAL PRODUCT SALES CONSULTANT 06/11/2014 SURGICAL PRODUCT SALES CONSULTANT Location of INR sample : Lab Type [...] Fabiola granados. Hue will be staying in [place] 2wks post-surgery & have INR drawn there. [...] completed by : KHADAR SANDERS RN - 07/31/2014 12:17 SURGICAL PRODUCT SALES CONSULTANT KHADAR BANDA RN - 07/31/2014 12:17 SURGICAL PRODUCT SALES CONSULTANT KHADAR BANDA RN - 07/31/2014 12:17 KHADAR PALOMINO RN - 07/31/2014 12:17 SURGICAL PRODUCT SALES CONSULTANT Date : 06/14/2014 SURGICAL PRODUCT SALES CONSULTANT 06/14/2014 SURGICAL PRODUCT SALES CONSULTANT 06/16/2014 SURGICAL PRODUCT SALES CONSULTANT 06/23/2014 SURGICAL PRODUCT SALES CONSULTANT Location of INR sample : Clinic Lab Lab Type of Sample : Venous Venous INR Result : 1.3 on 06/13 2.4 faxed from lab 2.0 Warfarin Dose : (pt took 2.5mg 06/13) 5mg Sat and 5mg Sun (06/14 and 06/15) 5mg Mon and 2.5mg all other days 5mg Mon and 2.5mg all other days Total Weekly Warfarin Dose : 20 20 Comment : [place] lab called with INR result from 06/13, reported they left a message with Dr. Henriquez and hadn't heard back, spoke with mother, Fabiola, and gave doses, continue Lovenox and repeat INR 06/16, message left with INR clinic in to contact CF Please contact [place] lab on 06/16 for result and may call Fabiola at [phone] with instructions call to Fabiola/will stop Lovenox injections and take noted dose/pt has an appt here in [place] 06/23 so will do lab appt here that day Called to Fabiola/ Hue will be back at [facility] by next draw. will have done on . no changes to meds/diet. Recommend Recheck : Two days One week Two weeks Plan completed by : KHADAR Mattson LM RN - 07/31/2014 12:17 SURGICAL PRODUCT SALES CONSULTANT KHADAR BANDA RN - 07/31/2014 12:17 SURGICAL PRODUCT SALES CONSULTANT KHADAR BANDA RN - 07/31/2014 12:17 SURGICAL PRODUCT SALES CONSULTANT KHADAR BANDA RN - 07/31/2014 12:17 SURGICAL PRODUCT SALES CONSULTANT Date : 07/10/2014 SURGICAL PRODUCT SALES CONSULTANT 07/17/2014 SURGICAL PRODUCT SALES CONSULTANT 07/31/2014 SURGICAL PRODUCT SALES CONSULTANT Location of INR sample : Lab Lab Lab Type of Sample : Venous Venous Venous INR Result : 1.9 2.2 3.0 Warfarin Dose : 5mg 07/10, then 5mg Mon, 2.5mg all other days 5mg Mon and 2.5mg all other days 5mg Mon, 2.5mg all other days Total Weekly Warfarin Dose : 20 20 20 Comment : called to Fabiola/Mom Called to Fabiola/Mom. No changes. 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 : DVT Lower, Other: Deep Phlebitis-Leg NEC CHADS2 Score Date : 09/05/2013 CDT KHADAR BANDA RN - 07/31/2014 12:17 SURGICAL PRODUCT SALES CONSULTANT Changes / Problems Changes/Problems Since Last Visit : None Been Scheduled For : None Missed Coumadin Doses : None Change In Intake : None Change In Medication : None Have You Had : None Plans to Travel : No KHADAR BANDA RN - 07/31/2014 12:17 SURGICAL PRODUCT SALES CONSULTANT Source: [facility] POWERCHART Document Id: [id number] SURGICAL PRODUCT SALES CONSULTANT!264 ICAL PRODUCT SALES CONSULTANT Miscellaneous - Sudha Holley R.N. - 07/31/2014 10:19 AM CST Results Notification From: SUDHA HOLLEY V RN ( Anticoagulation Nurse) To: Anticoagulation Nurse; Sent: 07/31/2014 10:19:57 SURGICAL PRODUCT SALES CONSULTANT Show up: 07/31/2014 10:20:00 SURGICAL PRODUCT SALES CONSULTANT Subject: Results Notification Results: Date Result Name Value Ref Range 07/31/2014 08:07 PT 35.1 second(s) 07/31/2014 08:07 INR 3.0 INR (0.8 - 1.1) Source: [facility] POWERCHART Document Id: [id number] documented in this encounter Plan of Treatment Not on filedocumented as of this encounter Procedures Procedure Name Priority Date/Time Associated Comments Diagnosis PROTHROMBIN TIME Routine 07/31/2014 8:07 AM Resul ts for this (PT), P SURGICAL PRODUCT SALES CONSULTANT procedure are i n the results section. documented in this encounter Results (ABNORMAL) PT (Prothrombin Time) with INR (07/31/2014 8:07 AM SURGICAL PRODUCT SALES CONSULTANT) [facility] Method Time Signature Prothrombin 35.1 SECONDS POWERCHART Time, P INR 3.0 (H) 0.8 - 1.1 POWERCHART INR Comment: Recommended INR for prophylaxis/treatmen t of Venous Thrombosis, Pulmonary Embolism, Myocardial Infarction, and Embolism from Atrial Fibrillation is 2.0- 3.0 (Standard Therapy) Recommended INR for Mechanical Heart Tejal ves and recurrent Systemic Embolism is 2.5-3.5 (Intensive Therapy) Specimen (Source) Anatomical Collection Method Collection Time Re ceived Time Location / / Volume Laterality Blood 07/31/2014 8:07 AM SURGICAL PRODUCT SALES CONSULTANT Tasha Henriquez M.D. LAB BLOOD ADD-ON Performing Organization Address City/State/ZIP Code Phon e Number POWERCHART documented in this encounter Visit Diagnoses Not on filedocumented in this encounter
--- OUTSIDE RECORDS SUMMARY | 2022-04-25 16:03 | XMS_ITS | Encounter Summary ---
:1975 Author Organization [facility] Address [address] [place] [id number] Care Team Providers Name Role Phone Unavailable Primary Care Provider Unavailable Encounter Details Date Type Department Care Team Description 06/11/2014 Hospital Encounter HX NO MAPPING Jayden Heard M.D. [address] [place], [place] [phone] (Wo rk) Social History Tobacco Use Types Packs/Day Years Used Date Smoking Tobacco: Never Assessed Sex Assigned at Date Recorded Not on file documented as of this encounter Last Filed Vital Signs Vital Sign Reading Time Taken Comments Blood Pressure 102/66 06/11/2014 1:00 PM CAT SITTER Pulse 66 06/11/2014 6:40 AM CAT SITTER Temperature - - Respiratory Rate 18 06/11/2014 9:30 AM CAT SITTER Oxygen Saturation - - Inhaled Oxygen Concentration - - Weight 81 kg (178 lb 9.2 oz) 06/11/2014 6:40 AM CAT SITTER Height 157 cm (5' 1.81) 06/11/2014 1:30 PM CAT SITTER Body Mass Index 32.86 06/11/2014 6:40 AM CAT SITTER documented in this encounter Discharge Summaries Mari Mohr R.N. - 06/11/2014 1:44 PM CST Hospital Discharge Instructions [facility] [address] [place], [place] [id number] Patient Discharge Instructions Name: DORITA SHEFFIELD Current Date: 06/11/2014 13:44:20 : 1975 12:00 AM [facility] Number: [id number] Patient Address: [address] [facility] [phone] Patient Primary Care Provider: Name: TASHA HENRIQUEZ MD Discharge Diagnosis: [facility] [place] would like to thank you for allowing us to assist you with yourhealthcare needs. The following includes patient education materials and information regarding your injury/illness. Comment: DORITA SHEFFIELD has been given the following list of follow-up instructions, medication list and patient education materials: Follow-up Instructions Discharge Diet Diet Type: Resume previous diet Discharge Incision/Wound Care Wound Location: abdomen Keep Wound Dry: 24 Hours May Shower: In 24 Hours Dressing: Don't remove Discharge Instruction General Activity Limitations: Activity as tolerated Avoid Lifting: Greater than 20 pounds Duration of Lifting Limitations: 2 weeks Driving Limitations: Don't drive while taking pain medicine Special Instructions: Avoid submersion of wound for 2 weeks. Discharge Medication Instruction Medication Instruction: Restart warfarin today, begin enoxaparin tomorrow Medications Medication/Strength How to Take Indications/Special Instructions/Comments/Notes for Patient Medication Changes/Routing aspirin (aspirin 81 mg oral tablet) 1 Tablet(s), Oral, once a day doxycycline (doxycycline 20 mg oral tablet) 1 Tablet(s), Oral, two times a day enoxaparin (Lovenox 80 mg/0.8 mL injectable solution) 0.8 Milliliter, Subcutaneous, once a day x 5 day(s) fluoride topical (Prevident 5000 Plus topical paste) 1 luther, Topical, two times a day [facility] [place] MED) See Instructions Rx mouth wash - daily multivitamin (multivitamin) 1 tab, Oral, once a day traMADol (traMADol 50 mg oral tablet) 2 Tablet(s), Oral, every 6 hours as needed for Pain Routed to Printer traMADol (traMADol 50 mg oral tablet) 1/2 or 1 tab, Oral, every 6 hours as needed for Pain x 14 day(s) warfarin (warfarin 5 mg oral tablet) See Instructions 5mg Mon, 2.5mg all other days or as directed by the INR clinic as of 04/17/14 warfarin (warfarin 1 mg oral tablet) See Instructions 1 mg daily or as directed per INR Clinic Stop Taking the Following Medications: Medication list as of 06-11-14 13:44 Attention: If you have any medications at home that are not on this list, DO NOT take them until youcontact your provider for clarification. Give a copy of your medication list to your primary care provider. Update your medication list any time medications or doses are changed and carry your medication list at all times in case of emergency. Comment: Electronically Signed By: SUSAN HEARD MD Signed On:11-JUN-2014 08:59:39 Your Upcoming Appointments Date Time Location Provider 06/13/2014 08:30 [facility] Lab [facility] Lab 06/13/2014 08:30 [facility] Lab [facility] Lab 06/23/2014 08:45 [facility] Kati TSANG, Susan Cha, DORITA SHEFFIELD , have received the attached patient education materials/instructions and have verbalized understanding: Patient Signature Date Time Care Provider Signature Date Time Source: [facility] POWERCHART Document Id: [id number] SITTER Mari Mohr R.N. - 06/11/2014 1:44 PM CST Hospital Discharge Medication List [facility] [address] [facility] [place] [address] Discharge Medication List Name: DORITA SHEFFIELD Current Date: 06/11/2014 13:44:18 : 1975 12:00 AM [facility] Number: [id number] Patient Address: [address] [place] [id number] Patient Primary Care Provider: Name: TASHA HENRIQUEZ MD Discharge Diagnosis: [facility] [place] would like to thank you for allowing us to assist you with your healthcare needs. The following includes patient education materials and information regarding yourinjury/illness. Medications Medication/Strength How to Take Indications/Special Instructions/Comments/Notes for Patient Medication Changes/Routing aspirin (aspirin 81 mg oral tablet) 1 Tablet(s), Oral, once a day doxycycline (doxycycline 20 mg oral tablet) 1 Tablet(s), Oral, two times a day enoxaparin (Lovenox 80 mg/0.8 mL injectable solution) 0.8 Milliliter, Subcutaneous, once a day x 5 day(s) fluoride topical (Prevident 5000 Plus topical paste) 1 luther, Topical, two times a day Misc Prescription (NEW MED) See Instructions Rx mouth wash - daily multivitamin (multivitamin) 1 tab, Oral, once a day traMADol (traMADol 50 mg oral tablet) 2 Tablet(s), Oral, every 6 hours as needed for Pain Routed to Printer traMADol (traMADol 50 mg oral tablet) 1/2 or 1 tab, Oral, every 6 hours as needed for Pain x 14 day(s) warfarin (warfarin 5 mg oral tablet) See Instructions 5mg Mon, 2.5mg all other days or as directed by the INR clinic as of 04/17/14 warfarin (warfarin 1 mg oral tablet) See Instructions 1 mg daily or as directed per INR Clinic Stop Taking the Following Medications: Medication list as of 06-11-14 13:44 Attention: If you have any medications at home that are not on this list, DO NOT take them until youcontact your provider for clarification. Give a copy of your medication list to your primary care provider. Update your medication list any time medications or doses are changed and carry your medication list at all times in case of emergency. Comment: Electronically Signed By: SUSAN HEARD MD Signed On:11-JUN-2014 08:59:39 Source: [facility] POWERCHART Document Id: [id number] SITTER Mari Mohr R.N. - 06/11/2014 1:43 PM CST Discharge Summary Discharge Summary Entered On: 06/11/2014 13:44 CAT SITTER Performed On: 06/11/2014 13:43 CAT SITTER by MARI OMHR RN DC Information Discharged to : Home with family care Current Home Treatments : None Home Equipment : None Professional Skilled Services : None Special Services and Community Resources : None Mode of Discharge : Ambulatory Discharge Transportation : Private vehicle Accompanied By : Nurse, Family Date/Time of Discharge : 06/11/2014 13:31 CAT SITTER MARI MOHR RN - 06/11/2014 13:43 CAT SITTER Education General Patient Education Powergrid Topics : Discharge instructions/Medication list Individuals Taught : Patient, Parent Barriers to Learning : None evident Teaching Method : Explanation, Printed materials Teaching Evaluation : Verbalizes understanding MARI MOHR RN - 06/11/2014 13:43 CAT SITTER Valuables/Belongings Valuables/Belongings Grid Valuables at Bedside Clothes, Patient Valuables : Pants, Shirt, Shoes MARI MOHR RN - 06/11/2014 13:43 CAT SITTER Source: [employer] Document Id: [id number] CAT SITTER!23 SITTER documented in this encounter Medications at Time of Discharge Medication Sig Dispensed Refills Start Date End Date multivitamin tablet Take 2 tablets by 0 3 mouth daily. FLUORIDE, SODIUM, Apply 1 application 0 3 12/31/2019 DENTAL topically 2 (two) times a day. documented as of this encounter Procedure Notes Mari Mohr RMichaelN. - 06/11/2014 7:02 AM CST Peripheral IV Peripheral IV Entered On: 06/11/2014 7:02 CAT SITTER Performed On: 06/11/2014 7:02 CAT SITTER by MARI MOHR RN Peripheral IV Peripheral IV Assess/Intervention Grid Peripheral IV #1 IV Activity : Start Number of Attempts : 1 Date of Insertion : 06/11/2014 CAT SITTER IV Site : Hand Laterality : Right Catheter Size : 20 Catheter Type : Protective Site Condition : No complications Flow/ Patency : No complications MARI MOHR RN - 06/11/2014 7:02 CAT SITTER Source: [facility] POWERCHART Document Id: [id number] CAT SITTER!13 SITTER Mari Mohr RViktor - 06/11/2014 6:40 AM CST Preprocedure Checklist Document Has Been Updated Preprocedure Checklist Entered On: 06/11/2014 6:46 CAT SITTER Performed On: 06/11/2014 6:40 CAT SITTER by MARI MOHR RN Checklist Last Fluid Intake : 06/11/2014 5:30 CAT SITTER Last Food Intake : 06/10/2014 18:00 CAT SITTER Status : Patient denies MARI MOHR RN - 06/11/2014 6:40 CAT SITTER Surgery Prep Grid Contacts/Glasses Removed : NA Dentures Removed : NA Hairpins/Hairpiecies Removed : NA Hearing Aid Removed : NA Home Prep Complete : Yes Jewelry/Piercing Removed : Yes Makeup/Nail [place] Removed : NA Oral Hygiene : NA Preop Scrub AM of Surgery : NA Preop Scrub Night Prior to Surgery : NA Prosthesis Removed : NA Surgical Prep Verified : NA Tampon Removed : NA Wearing Patient Gown : Yes Voided information services manager to procedure : Yes MARI MOHR RN - 06/11/2014 6:40 CAT SITTER Surgical Preparation : N/A MARI MOHR RN - 06/11/2014 6:40 CAT SITTER Patient Rights Grid Blood Consent Signed : Yes Surgical/Procedure Consent Signed : Yes MARI MOHR RN - 06/11/2014 6:40 CAT SITTER Family Location : [place] MARI MOHR RN - 06/11/2014 6:40 CAT SITTER Checklist II Patient Safety Grid Allergy Band on and Verified : Yes Anesthesia Consult : Yes Band on for Limb Alert : NA Blood Band on and Verified : NA Current ECG in Medical Record : NA Current H&P in Medical Record : Yes Implants Verified : Yes Medication Reconciliation on Chart : Yes Pacemaker/AICD Verified : NA ID Band on and Verified : NA Preop Medications Sent With Patient : Yes Relevant Images in Medical Record : NA Review of Labs : NA Procedure/Site Verified by Patient/Family : Yes Procedure/Site Verified by RN : Yes Procedure/Site Verified by Physician : Yes Type & Screen/Type & Cross Completed : NA MARI MOHR RN - 06/11/2014 6:40 CAT SITTER ANGY Screening Known Obstructive Sleep Apnea : No - NOT diagnosed with ANGY MARI MOHR RN - 06/11/2014 6:40 CAT SITTER ANGY Assessment Do you have high blood pressure or have you been told to take medication for high blood pressure? : No Frequency of Snoring : Occasionally (4-8 times per year) Frequency of Gasping, Choking, Snorting : Never Total Number of Historical Features : 0 Neck Circumference (cm) : 40/41 Total Sleep Apnea Clinical Score Calc : 3 MARI MOHR RN - 06/11/2014 6:40 CAT SITTER Valuables/Belongings Valuables/Belongings Grid Valuables at Bedside Clothes, Patient Valuables : Pants, Shirt, Shoes MARI MOHR RN - 06/11/2014 6:40 CAT SITTER Education Preprocedure Education Grid Procedure Type : lap brianna Individuals Taught : Parent Barriers to Learning : None evident Teaching Method : Explanation Teaching Evaluation : Verbalizes understanding MARI MOHR RN - 06/11/2014 6:40 CAT SITTER Advance Directive Advanced Directives : No Advance Directive Additional Information : No MARI MOHR RN - 06/11/2014 6:40 CAT SITTER Vital Signs Actual Weight : 81 kg Actual Weight Conversion to Pounds : 178.2 lb Body Mass Index : 32.86 kg/m2 MARI MOHR RN - 06/11/2014 7:05 CAT SITTER Temperature Core : 36.7 DegC(Converted to: 98.1 DegF) Peripheral Pulse Rate : 66 /min Respiratory Rate : 18 /min Systolic Blood Pressure : 92 mmHg Diastolic Blood Pressure : 58 mmHg NIBP Mean : 69 mmHg BP Location : Left upper extremity SpO2 : 93 % (LOW) Oxygen Therapy : Room air Height : 157 cm(Converted to: 5 ft 2 inch(es)) MARI MOHR RN - 06/11/2014 6:40 CAT SITTER Allergy (As Of: 06/11/2014 06:46:28 CAT SITTER) Allergies (Active) Bee Stings Comments: Comment 1: BEES ; Created By: Contributor_system, [facility]_HX_ALRG_SYS; Reaction Status: Active ; Category: Environment ; Substance: Bee Stings ; Type: Unknown ; Updated By: Contributor_system, [facility]_HX_ALRG_SYS; Reviewed Date: 06/10/2014 16:03 CAT SITTER chloramphenicol containing compounds Comments: Comment 1: CHLORAMPHENICOL ; Created By: Contributor_system, [facility]_HX_ALRG_SYS; Reaction Status: Active ; Category: Drug ; Substance: chloramphenicol containing compounds ; Type: Unknown ; Updated By: Contributor_system, [facility]_HX_ALRG_SYS; Reviewed Date: 06/10/2014 16:03 CAT SITTER quinolone antibiotics Comments: Comment 1: QUINOLONES - ciloxan eye tts ; Created By: Contributor_system, [facility]_HX_ALRG_SYS; Reaction Status: Active ; Category: Drug ; Substance: quinolone antibiotics ;Type: Unknown ; Updated By: Contributor_system, [facility]_HX_ALRG_SYS; Reviewed Date: 06/10/2014 16:03 CAT SITTER Source: [facility] [employer] Document Id: [id number] CAT SITTER!5 SITTER documented in this encounter Nursing Notes Mari Mohr R.N. - 06/11/2014 11:02 AM CST PRN Response PRN Response Entered On: 06/11/2014 11:30 CAT SITTER Performed On: 06/11/2014 11:02 CAT SITTER by MARI MOHR RN PRN Medication Effectiveness Evaluation PRN Medication Effective : Yes Post Medication Pain Assessment : 4 MARI MOHR RN - 06/11/2014 11:30 CAT SITTER Source: [facility] [employer] Document Id: [id number] CAT SITTER!4 SITTER Conversion, Historical Provider Ser - 06/11/2014 9:04 AM CST [facility] Main OR Nursing Record [facility] Main OR Nursing Record Summary Primary Physician: SUSAN HEARD MD Finalized Date/Time: 06/11/14 15:43:45 Pt. Name: NETTIE, DORITA SANTOSH /Sex: 1975 Female Med Rec #: [id number] Physician: Financial #: [id number] Pt. Type: D Room/Bed: 02/24 Admit/Disch: 06/11/14 06:17:04 - 06/11/14 13:30:00 Institution: Allergies identified in patient's electronic medical record at time of printing on 06/11/14 Allergies not recorded Nursing Assessment RWHO Entry 1 Preop Checklist Yes Patient Arrived in No Reviewed OR with Jewelry, Valuables, Glasses and/or Contact Lenses. If yes, disposition charted on Valuables/Belongings tab of Preprocedure Checklist. Level of Alert, Oriented Skin Condition Warm, Intact Consciousness Nursing Data - Pain Does Patient Have No Pain? Diagnoses X04 Anxiety, X29 Interventions I106 Provides Injury, risk of, X57 instruction based on Temperature, risk for age and identified altered body need., I050 Evaluates response to instructions. Expected Outcomes O12 The patient is at All Patient Yes or returning to Outcomes Met? (see normothermia at the anesthesia record conclusion of the for hypothermia immediate postoperative outcome) period., O29 The patient demonstrates and/or reports adequate pain control throughout the perioperative period. Last Modified By: ANNA GARG RN 06/11/14 08:32:19 General Comments: Noted reddened area on buttocks, bilaterally and redness on left lower quadrant pror to start of surgery Case Times RWHO Entry 1 Patient In Room Time 06/11/14 07:49:00 Anesthesia Start 06/11/14 07:49:00 Time Surgery Start Time 06/11/14 08:16:00 Surgery Stop Time 06/11/14 09:04:00 Patient Out Room 06/11/14 09:28:00 Anesthesia Stop Time 06/11/14 09:28:00 Time Last Modified By: ANNA GARG RN 06/11/14 09:34:28 Case Attendance RWHO Entry 1 Entry 2 Entry 3 Case Attendee SUSAN HEARD MD, ALISON RN JUERS, CHARLENE F RN Role Performed Surgeon, Primary Scrub, First RN Sales Donor Recruitment Representative, Primary - Orientee Time In 06/11/14 07:49:00 06/11/14 07:49:00 06/11/14 07:49:00 Time Out 06/11/14 09:28:00 06/11/14 09:28:00 06/11/14 09:28:00 Relief? No No No See Anesthesia Record for Additional Attendees and Relief Times Last Modified By: ANNA GARG RN ANNA GARG RN, CHARLENE F RN 06/11/14 09:34:33 06/11/14 09:34:33 06/11/14 09:34:33 Entry 4 Entry 5 Entry 6 Case Attendee MAGGIE AVILA, CASSIDY CAMACHO CRNA, LPN Role Performed RN Sales Donor Recruitment Representative - Primary Certified Registered Surgeon, Assist Nurse Polygraph Technician Time In 06/11/14 07:49:00 06/11/14 07:49:00 06/11/14 07:49:00 Time Out 06/11/14 09:28:00 06/11/14 09:28:00 06/11/14 09:28:00 Relief? No No No See Anesthesia Record for Additional Attendees and Relief Times Last Modified By: ANNA GARG RN ANNA GARG RN ANNA GARG RN 06/11/14 09:34:33 06/11/14 09:34:33 06/11/14 09:34:33 Entry 7 Entry 8 Case Attendee CHUCK LOVE CRNA, KIMBERLY RN Role Performed Certified Registered Sales Donor Recruitment Representative, Other Nurse Polygraph Technician Time In 06/11/14 07:49:00 06/11/14 07:49:00 Time Out 06/11/14 09:28:00 06/11/14 09:28:00 Relief? No No See Anesthesia Record for Additional Attendees and Relief Times Last Modified By: ANNA GARG RN ANNA GARG RN 06/11/14 09:34:33 06/11/14 09:34:33 Surgical Procedures [facility] Entry 1 Procedure Cholecystectomy Modifiers None Laparoscopic Procedure Performed Laparoscopic Primary Procedure Yes (Primary Procedure cholecystectomy Surgeon Comment) Primary Surgeon SUSAN HEARD MD Surgical Service SN - General Start 06/11/14 08:16:00 Stop 06/11/14 09:04:00 Anesthesia Type General Anesthesia Type Yes Verified Last Modified By: ANNA GARG RN 06/11/14 09:12:04 General Case Data RWHO Entry 1 Case Information OR RWHO OR 04 Case Level Level 3 Wound Class Clean Contaminated Specialty SN - General ASA Class 3 Diagnosis Preop Diagnosis right upper quadrant pain Last Modified By: ANNA GARG RN 06/11/14 07:36:41 Fire Risk Assessment RWHO Entry 1 Date/Time 06/11/14 08:15:00 Surgical Site Above No = 0 Xiphoid Open Oxygen Source No = 0 Available Ignition Yes = 1 Source Fire Risk 1 Last Modified By: ANNA GARG RN 06/11/14 08:34:11 Surgical Pause RWHO Entry 1 Pause Date-Time 06/11/14 08:14:00 Surgical/Procedural Surgical team verifies Team Pause patient name and birthdate, Surgical team verifies surgical procedure, including side and site, Surgical team verifies correct patient position, Surgical team verifies availability of implants, special equipment or special requirements, Surgical team verifies antibiotic administration and documentation Fire Risk Assessment Surgical Team Verified Fire Risk Assessment Last Modified By: ANNA GARG RN 06/11/14 08:34:27 Initial Count Entry 1 Initial Sponge Count Yes Initial Sharps Count Yes Initial Instrument Yes By LEONEL GU RN, Count ANNA GARG RN Last Modified By: ANNA GARG RN 06/11/14 08:34:43 Positioning Entry 1 Diagnoses X29 Injury, risk of, Positioning By SUSAN HEARD X51 Skin integrity, , MAGGIE AVILA, risk for impaired ANNA GARG RN Body Position Supine Left Arm Position Padded, Extended on Armboard Right Arm Position Padded, Extended on Leg Position Bony Prominences Padded Armboard Intermittent Yes Interventions I064 Identifies Pneumatic physical alterations Compression Device, that may affect Knee High? procedure-specific positioning., I011 Applies safety devices., I041 Evaluates for signs and symptoms of physical injury. Expected Outcomes O05 The patient is free Outcomes Met? Yes from signs and symptoms of injury related to positioning. Last Modified By: ANNA GARG RN 06/11/14 07:46:21 Skin Prep RWHO Entry 1 Skin Prep Prep Site Abdomen Prep Agents Chloroprep Flammable Prep Yes By AVILA, MAGGIE Agents Allowed to Dry? Hair Removal Methods N/A Diagnosis X28 Infection, risk for Interventions I081 Initiates traffic control., I098 Protects from cross-contamination., Prep performed consistent with aseptic principles and surgeon preference Expected Outcomes Surgery performed using Outcomes Met Yes aseptic technique, preventing cross contamination Last Modified By: ANNA GARG RN 06/11/14 08:35:44 [facility] [id number] Coag Setting 30 Cut Setting 0 Grounding Pad Site Right thigh Skin Cond Before Skin intact Skin Cond After Skin intact Last Modified By: ANNA GARG RN 06/11/14 08:36:18 Medications RWHO Entry 1 Entry 2 Medication Marcaine 0.5% (30ml) Dermabond vial Time Administered 06/11/14 07:41:00 06/11/14 07:42:00 Route of Admin Injection to Surgical Topical to Surgical Area Area Volume 30 mL .5 mL By SUSAN HEARD MD, CHRISTOPHER A MD Last Modified By: ANNA GARG RN, CHARLENE F RN 06/11/14 09:04:14 06/11/14 09:37:25 Counts Entry 1 Entry 2 Entry 3 Counts Sequence Closing Count Final Count Sponges Count Yes Yes Yes Correct? Sharps/[place] Yes Yes Yes Count Correct? Instrument Count Yes Yes n/a Correct? By LEONEL GU RN, LEONEL GU RN, MAGGIE AVILA KRECH, JUERS, CHARLENE F RN JUERS, CHARLENE F RN ALISON RN Actions Taken Surgeon notified of Surgeon notified of Surgeon notified of count status count status count status Last Modified By: ANNA GARG RN, CHARLENE F RN JUERS, CHARLENE F RN 06/11/14 07:44:04 06/11/14 08:37:22 06/11/14 08:37:22 Specimens Entry 1 Description gallbladder Disposition To Path per Pathologist Frozen Section? No Last Modified By: ANNA GARG RN 06/11/14 08:37:31 Departure from OR Entry 1 Via Cart Post-op Destination PACU Report Given To MISHEL RODRIGUEZ RN Final Wound Class Clean Contaminated per Surgeon/Team Reason for Change No change in wound class in Wound Class Last Modified By: MISHEL RODRIGUEZ RN 06/11/14 09:35:39 Case Comments <None> Finalized By: MARCELA CRAIN Signed By: Signature Initials Document Signatures Signed By: ANNA GARG RN 06/11/14 09:37 MARCELA CRAIN 06/11/14 15:43 Unfinalized History Date/Time Username Reason for Unfinalizing Freetext Reason for Unfinalizing 06/11/14 15:42 [id number] Modify Pick List add codes Source: [facility] [employer] Document Id: [id number] Mari Mohr RMichaelN. - 06/11/2014 6:36 AM CST Day Surgery Admission History/Asmt Adult Document Has Been Updated Day Surgery Admission History/Asmt Adult Entered On: 06/11/2014 6:40 CAT SITTER Performed On: 06/11/2014 6:36 CAT SITTER by MARI MOHR RN General Info Are you ? : No MARI MOHR RN - 06/11/2014 6:40 CAT SITTER Preferred Name : Jade Admitted From : Non-Health Care Facility Point of Origin Mode of Arrival : Ambulatory Accompanied By : Father, Mother Chief Complaint : Lap brianna Preferred Communication Mode : Verbal Information Given By : Patient, Father, Mother Languages : Divehi Is Patient Female and 13-50 no hysterectomy : Yes Status : Patient denies MARI MOHR RN - 06/11/2014 6:36 CAT SITTER ID Screen Travel Within Last 21 Days : No MARI MOHR RN - 06/11/2014 6:36 CAT SITTER Nutrition Nutrition Risk Factors by History Adult : None Home Diet : Regular Feeding Ability : Complete independence Appetite : Excellent MARI MOHR RN - 06/11/2014 6:36 CAT SITTER Home Environment Current Daily Living Assistance : None MARI MOHR RN - 06/11/2014 6:36 CAT SITTER Dependent Habits Tobacco Use/Currently Using : No Exposure to Tobacco Smoke : Other: never smoker Smoking Status : Never smoker Alcohol Use : Yes MARI MOHR RN - 06/11/2014 6:36 CAT SITTER AUDIT Tool How Often Do You Have A Drink : Monthly or less How Many Drinks in a Day When Drinking : 1 or 2 Six or More Drinks On One Occassion : Never Audit Phase 1 Score : 1 MARI MOHR RN - 06/11/2014 6:36 CAT SITTER Psychosocial Adult Domestic Abuse Concerns : None Zoroastrian Preference : No qualifying data available. MARI MOHR RN - 06/11/2014 6:36 CAT SITTER Advance Directive Advanced Directives : No Advance Directive Additional Information : No MARI MOHR RN - 06/11/2014 6:36 CAT SITTER Educ Needs Patient/Family Education Needs : Preoperative instructions MARI MOHR RN - 06/11/2014 6:36 CAT SITTER Learning Style Preference Adult Grid Patient : Verbal explanation Family : Verbal explanation MARI MOHR RN - 06/11/2014 6:36 CAT SITTER Outpatient Assessment Procedural Respiratory : Respirations unlabored Procedural Neurological : Alert Procedural Genitourinary : Voiding, no difficulties Procedural Integumentary : Skin integrity intact Procedural Musculoskeletal : Activity tolerance without distress MARI MOHR RN - 06/11/2014 6:36 CAT SITTER Psycho/Emotional Pain Symptoms : No MARI MOHR RN - 06/11/2014 6:36 CAT SITTER Mando Sensory Perception Mando : No impairment Moisture Mando : Rarely moist Activity Mando : Walks frequently Mobility Mando : No limitations Nutrition Mando : Excellent Friction and Shear Mando : No apparent problem Mando Score : 23 MARI MOHR RN - 06/11/2014 6:36 CAT SITTER Hendrich II Fall Risk Confusion/Disorientation [place] : No Depression Fall Risk [place] : No Dizziness/Vertigo Fall Risk [place] : No Gender, Male Fall Risk [place] : No Prescribed Antiepileptics [place] : No Prescribed Benzodiazepines [place] : No Rising From Chair Fall Risk [place] : Unable to rise without assistance MARI MOHR RN - 06/11/2014 6:36 CAT SITTER Integumentary Skin Turgor : Elastic MARI MOHR RN - 06/11/2014 6:51 CAT SITTER Skin Integrity : Not intact (Comment: has psoriasis/ has a small piece of loose skin on dry lips/ a small pimple on right facialcheek; small little lesion under nose [MARI MOHR Hudson RN - 06/11/2014 7:03 CAT SITTER] ) MARI MOHR Hudson RN - 06/11/2014 7:03 CAT SITTER Mucous Membrane Color : Grayridge Mucous Membrane Description : Moist JACKSON MOHRKennedy Treviño RN - 06/11/2014 6:51 CAT SITTER Integumentary Patient Stated Symptoms : Other: psoriasis (on buttocks) Skin Color : Normal for ethnicity Skin Description : Dry Skin Temperature : Warm JACKSON MOHRKennedy Treviño RN - 06/11/2014 6:36 CAT SITTER Source: [employer] Document Id: [id number] CAT SITTER!3 SITTER documented in this encounter OR Notes Op Note - Chuck Love CRNA, R.N. - 06/11/2014 3:43 PM CST PATIENT LOCATION SDS POST OP CONTINUOUS NERVE BLOCK _ POST OP CONTINUOUS EPIDURAL _ COMPLICATIONS No Apparent Complications Electronically Signed By: CHUCK LOVE CRNA On: 06/11/2014 03:43 PM Source: [employer] Document Id: [id number] SITTER Op Note - Susan Heard M.D. - 06/11/2014 9:00 AM CST BRIEF OPERATIVE NOTE Preoperative Diagnosis: Symptomatic cholelithiasis Postoperative Diagnosis: Symptomatic cholelithiasis Procedure: Laparoscopic cholecystectomy Surgeon: Susan Heard MD Glazier Apprentice: Ashley Peralta LPN Anesthesia: General endotracheal anesthesia Wound Exploration Completed: Yes Findings: Gallstones in gallbladder neck. Critical view of safety obtained prior to ligation and division of cystic duct and cystic artery. Estimated Blood Loss: 10 mL Specimen: Gallbladder Drains: None Complications: None Electronically Signed By: SUSAN HEARD MD On: 06/11/2014 09:00 AM Source: [facility] POWERCHART Document Id: [id number] SITTER Op Note - Chuck Love CRNA, R.N. - 06/11/2014 7:30 AM CST NPO STATUS > 8 hours Food - >2 hours Clear Liquid ANESTHESIA PLAN GETA ANESTHESIA INFORMED CONSENT/RISKS/ALTERNATIVES Discussed CORE MEASURES Betablocker taken pre-op: NA Infection prior to Anesthesia: N Pre-admission Coumadin Dose Given: NA Coumadin Last Dose:06/05/14 - AM INR of 1.0 MALIGNANT HYPERTHERMIA No history DNR/DNI STATUS ADDRESSED NA PATIENT QUESTIONS OR CONCERNS All answered - Pt. nervous MALLAMPATI 2 FROM - Small aperture HEART RATE Reg S1 Prominant S2 LUNGS Clear Bilat HISTORY AND PHYSICAL UPDATE (X)I have found no changes. (_)I have found the following changes in the patient's condition. Electronically Signed By: CHUCK LOVE CRNA On: 06/11/2014 07:31 AM Source: [facility] POWERCHART Document Id: [id number] SITTER Op Note - Susan Heard M.D. - 06/11/2014 12:00 AM CST HOPRER8 PREOPERATIVE DIAGNOSIS Symptomatic cholelithiasis. POSTOPERATIVE DIAGNOSIS Symptomatic cholelithiasis. PROCEDURE PERFORMED Laparoscopic cholecystectomy. SURGEON Susan Heard MD VISUAL MERCHANDISER Ashley Peralta LPN ANESTHESIA General endotracheal anesthesia. INDICATIONS FOR PROCEDURE Dorita is a 39-year-old female who was referred to Surgery Clinic after having an attack of biliarycolic. Her history, physical examination, laboratory and imaging findings were all consistent with symptomatic cholelithiasis. It was recommended she undergo a laparoscopic cholecystectomy, possible open, in the operating room. The procedure details, expected recovery, and potential complications wereexplained to her and her mother who is her medical decision maker. They were agreeable to proceed forward with the procedure and her mother signed the informed consent form. The patient was then scheduled on an elective outpatient basis. Please see my clinic note for details. DESCRIPTION OF PROCEDURE Patient was seen in preinduction and identified using 2 independent identifiers. Procedure details, expected recovery, and potential complications were discussed with her and her family. They were given an opportunity to ask questions. Informed consent was confirmed. Patient was currently feeling wellwith no new medical problems since her preoperative history and physical examination. INR was checked and found to be 1.0. The patient then received preoperative antibiotics, was brought to the operating room, and placed on the operating table in the supine position. She underwent general anesthesia induction and endotracheal intubation. She was then prepped and draped in the usual sterile fashion. Asurgical timeout was performed. Procedural pause conducted to verify: Correct patient identity, procedure to be performed and as applicable, correct side and site, correct patient position and availability of implants, special equipment or special requirements. A small skin incision was made in the patient's left upper quadrant near the costal margin after injection of local anesthetic. The abdominal wall was dissected under scope visualization using a 5 mm optical port. Once the peritoneal cavity was entered, the abdomen was insufflated with carbon dioxide. The port entry site was inspected for intra-abdominal injury and none was seen. Three additional ports were placed, a 12 mm port at the umbilicus and two 5 mm ports in the right upper quadrant after injection of local anesthetic and small skin incisions were made. The patient was then placed in reverse Trendelenburg position and airplaned to the left. Gallbladder was identified, grasped at the dome and retracted superiorly and laterally. The cystic duct and cystic artery were dissected away from the surrounding tissues using hook electrocautery. Thecystic artery was quite small and divided via electrocautery with no bleeding. The stump of the cystic artery was grasped with a [place] grasper and an Endoclip was placed over this. Once the criticalview of safety was obtained showing the cystic duct and cystic artery going directly in the gallbladder with no intervening structures all the way back to the liver, the cystic duct was then ligated with Endoclips, 2 proximal and 1 distal. The duct was then divided in between the clips. The gallbladder was dissected off the liver bed using hook electrocautery. It was placed in an EndoCatch bag and removed from the abdomen through the 12 mm port site. It was passed off the field as a specimen, placedin formalin, and sent to pathology for analysis. Next, the right upper quadrant was inspected for hemostasis which was present. The liver bed was inspected and no bleeding was seen. The cystic duct and cystic artery stumps were also inspected and theclips were found to be in good position. There was no bleeding or bile leakage. The 12 mm port was then removed and the fascia closed using Umre-Mary needle and 0 Vicryl suture. The remaining ports were removed under scope visualization with no port site bleeding being identified. Patient's abdomen was desufflated. The skin incisions were closed using subcuticular 4-0 Vicryl suture. Dermabond was applied to each of the incisions. Patient was then awoken from anesthesia, extubated, and brought to the postanesthesia care unit in good condition. All counts were correct x2. Patient tolerated the procedure well. FINDINGS Gallbladder with multiple gallstones in the neck. Critical view of safety obtained prior to ligationand division of cystic duct and cystic artery. ESTIMATED BLOOD LOSS 5 mL. SPECIMENS Gallbladder. DRAINS None. COMPLICATIONS None. Susan Heard M.D./erin Electronically Signed By: SUSAN HEARD MD On: 06/16/2014 04:29 PM Source: [facility] Document Id: [id number] SITTER Op Note - Melvi Ramirez M.D. - 06/09/2014 2:33 PM CST ASA STATUS _ASA 3 ASA SCORE EVIDENCED BY severe systemic disease PRE-OP DIAGNOSIS symptomatic cholithiasis PREVIOUS SURGERY/PROCEDURES AV - Atrioventricular valve operation: 03/29/13 Colonoscopy: 12/04/12 I and D, left thigh & le01/15/00 ALLERGIES Bee Stings chloramphenicol containing compounds quinolone antibiotics LAB RESULTS Hb 12.9, K 4.1, Cr 1.08 EKG NSR with LVH criteria-06/2013 X-RAY n/a PAST MEDICAL/PROBLEM HISTORY weight 76 kg Down's syndrome Atrioventricular canal-s/p repair 2012 echo 06/2013- normal LVF, moderate RV enlargement Irregular Menstrual Cycle Impaired Fasting Glucose Mixed Hyperlipidemia Primary Hypercoagulable State Phlebitis and Thrombophlebitis of Other Deep Vessels of Lower Extremities Cellulitis, NOS Cleft leaflet of mitral valve Gallstone Without Obstruction Psoriasis Tricuspid valve regurgitation NOS ANESTHESIC COMPLICATIONS none known MEDICATION LIST Medication List Active Medications Ordered acetaminophen: 2 tab(s), PO, q6hr, as needed for pain. Do not exceed eight tabs in 24hrs, PRN: Pain. albuterol: 2 puff(s), Inhalation, q4hr, PRN: Air Hunger. aspirin: 81 mg, 1 tab(s), PO, Daily, 90 tab(s). doxycycline: 1 tab(s), PO, 2xDay. fluoride topical: 1 luther, Topical, 2xDay. furosemide: See Instructions, 1 tab(s) PO 2xDay for one wk then one tab daily for one wk. metoprolol: 12.5 mg, 0.5 tab(s), PO, 2xDay. Misc Prescription: See Instructions, Rx mouth wash - daily. multivitamin: 1 tab, PO, Daily. multivitamin with minerals: 1 tab(s), PO, Daily. potassium chloride: 10 meq, 1 cap(s), PO, Daily, 90 cap(s). traMADol: 25 mg, 0.5 tab(s), PO, q6hr, PRN: Pain. traMADol: 1/2 or 1 tab, PO, q6hr, 30 tab(s), PRN: Pain. warfarin: See Instructions, 1 mg daily or as directed per INR Clinic , 45 tab(s). warfarin: See Instructions, 5mg Mon, 2.5mg all other days or as directed by the INR clinic as of 04/17/14, 30 tab(s). Medications Inactivated in the Last 72 Hours No medications found. SIGNIFICANT MEDICATIONS _ Electronically Signed By: MELVI RAMIREZ MD On: 06/09/2014 02:36 PM Source: [facility] POWERCHART Document Id: [id number] SITTER documented in this encounter Miscellaneous Notes Miscellaneous - Heaven Hensley, RMichaelN. - 06/12/2014 12:07 PM CST Discharge Follow Up Discharge Follow Up Entered On: 06/12/2014 12:08 CAT SITTER Performed On: 06/12/2014 12:07 CAT SITTER by HEAVEN HENSLEY RN Discharge Follow Up Follow Up Completed : Other: with mother Fabiola Procedure Date : 06/11/2014 CAT SITTER Proceduralist : SUSAN HEARD MD Reason for Follow Up : post op HEAVEN HENSLEY RN - 06/12/2014 12:07 CAT SITTER Uncontrolled Pain Uncontrolled Pain : No Bleeding : No Headache : No Dizziness : No Nausea/Vomiting : No Respiratory Symptoms : No Fever/Chills : No Numbness/Tingling : No Swelling : No Voiding Problems : No Do you have any questions about your discharge instructions? : No Do you have any questions or concerns regarding your medications? : No HEAVEN HENSLEY RN - 06/12/2014 12:07 CAT SITTER [facility] Document Id: [id number] CAT SITTER!19 SITTER Miscellaneous - Mari Mohr R.N. - 06/11/2014 1:30 PM CST Adult Postprocedure Assessment Adult Postprocedure Assessment Entered On: 06/11/2014 13:43 CAT SITTER Performed On: 06/11/2014 13:30 CAT SITTER by MARI MOHR RN Vital Signs Height : 157 cm(Converted to: 5 ft 2 inch(es)) MARI MOHR RN - 06/11/2014 13:42 CAT SITTER General Level of Consciousness : Alert Orientation : Oriented x 3 Skin Color : Normal for ethnicity Skin Description : Dry Skin Temperature : Warm Pain Symptoms : No MARI MOHR RN - 06/11/2014 13:42 CAT SITTER Peripheral IV Peripheral IV Assess/Intervention Grid Peripheral IV #1 IV Activity : Discontinue Number of Attempts : 1 Date of Insertion : 06/11/2014 CAT SITTER IV Site : Hand Laterality : Right Catheter Size : 20 Catheter Type : Protective Site Condition : No complications MARI MOHR RN - 06/11/2014 13:42 CAT SITTER PARSAP Activity Status : Moves 4 extremities voluntarily or on command Dressing : None Respiratory Component : Able to deep breathe and cough freely Pain : Pain free Circulation Component : BP 20% of preanesthetic level Ambulation : Able to stand up and walk straight Consciousness : Fully awake Fasting and Feeding : Able to drink fluids Oxygen Saturation - Sedation : Can maintain > 92% on room air Urine Output, PARSAP : Has voided PARSAP Score : 20 MARI MOHR RN - 06/11/2014 13:42 CAT SITTER Source: [employer] Document Id: [id number] CAT SITTER!33 SITTER Miscellaneous - Mari Mohr RViktor - 06/11/2014 1:00 PM CST Adult Postprocedure Assessment Adult Postprocedure Assessment Entered On: 06/11/2014 13:42 CAT SITTER Performed On: 06/11/2014 13:00 CAT SITTER by MARI MOHR RN Vital Signs Height : 157 cm(Converted to: 5 ft 2 inch(es)) MARI MOHR RN - 06/11/2014 13:41 CAT SITTER General Level of Consciousness : Alert Orientation : Oriented x 3 Skin Color : Normal for ethnicity Skin Temperature : Warm Pain Symptoms : No (Comment: is comfortable now/ up to walk in preciado x 1 [MARI MOHR RN - 06/11/2014 13:41 CAT SITTER] ) MARI MOHR RN - 06/11/2014 13:41 CAT SITTER Source: [employer] Document Id: [id number] CAT SITTER!9 SITTER Miscellaneous - Mari Mohr RMichaelNMichael - 06/11/2014 12:30 PM CST Adult Postprocedure Assessment Adult Postprocedure Assessment Entered On: 06/11/2014 12:32 CAT SITTER Performed On: 06/11/2014 12:30 CAT SITTER by MARI MOHR RN Vital Signs Height : 157 cm(Converted to: 5 ft 2 inch(es)) MARI MOHR RN - 06/11/2014 12:31 CAT SITTER General Level of Consciousness : Alert Orientation : Oriented x 3 Skin Color : Normal for ethnicity Skin Description : Dry Skin Temperature : Warm Pain Symptoms : No (Comment: states she is not having pain now, and feeling much better. Did get up to bathroom to voidsuccessfully this attempt. [MARI MOHR RN - 06/11/2014 12:31 CAT SITTER] ) MARI MOHR RN - 06/11/2014 12:31 CAT SITTER Source: [facility] [employer] Document Id: [id number] CAT SITTER!10 SITTER Miscellaneous - Mari Mohr R.N. - 06/11/2014 12:00 PM CST Adult Postprocedure Assessment Adult Postprocedure Assessment Entered On: 06/11/2014 12:33 CAT SITTER Performed On: 06/11/2014 12:00 CAT SITTER by MARI MOHR RN Vital Signs Height : 157 cm(Converted to: 5 ft 2 inch(es)) MARI MOHR RN - 06/11/2014 12:32 CAT SITTER General Level of Consciousness : Alert Orientation : Oriented x 3 Skin Color : Normal for ethnicity Skin Description : Dry Skin Temperature : Warm Pain Symptoms : Yes MARI MOHR RN - 06/11/2014 12:32 CAT SITTER Pain Pain Assessment Grid Pain 1 Location : Abdomen Intensity : 3 MARI MOHR RN - 06/11/2014 12:32 CAT SITTER (Comment: mainly states she is uncomfortable as she needs to urinate. Will attempt again. [MARI MOHR RN - 06/11/2014 12:32 CAT SITTER] ) Source: [facility] [employer] Document Id: [id number] CAT SITTER!15 SITTER Miscellaneous - Mari Mohr R.N. - 06/11/2014 11:30 AM CST Adult Postprocedure Assessment Adult Postprocedure Assessment Entered On: 06/11/2014 11:34 CAT SITTER Performed On: 06/11/2014 11:30 CAT SITTER by MARI MOHR RN Vital Signs Height : 157 cm(Converted to: 5 ft 2 inch(es)) MARI MOHR RN - 06/11/2014 11:32 CAT SITTER General Level of Consciousness : Other: Up to bathroom with assist of nurse and mom. Unable to void. Dr. Heard did stop by room to check on patient. Is aware she was having nausea. will continue to monitor. Orientation : Oriented x 3 Skin Color : Normal for ethnicity Skin Description : Dry Skin Temperature : Warm Pain Symptoms : Yes MARI MOHR RN - 06/11/2014 11:32 CAT SITTER Pain Pain Assessment Grid Pain 1 Location : Abdomen Intensity : 4 MARI MOHR RN - 06/11/2014 11:32 CAT SITTER [facility] Document Id: [id number] CAT SITTER!15 SITTER Miscellaneous - Mari Mohr RViktor - 06/11/2014 11:00 AM CST Adult Postprocedure Assessment Adult Postprocedure Assessment Entered On: 06/11/2014 11:32 CAT SITTER Performed On: 06/11/2014 11:00 CAT SITTER by MARI MOHR RN Vital Signs Height : 157 cm(Converted to: 5 ft 2 inch(es)) MARI MOHR RN - 06/11/2014 11:31 CAT SITTER General Level of Consciousness : Drowsy Orientation : Oriented x 3 Skin Color : Normal for ethnicity Skin Description : Dry Pain Symptoms : Yes MARI MOHR RN - 06/11/2014 11:31 CAT SITTER Pain Pain Assessment Grid Pain 1 Location : Abdomen Intensity : 4 MARI MOHR RN - 06/11/2014 11:31 CAT SITTER (Comment: continues to be nauseated at times. [MARI MOHR RN - 06/11/2014 11:31 CAT SITTER] ) [facility] Document Id: [id number] CAT SITTER!14 SITTER Miscellaneous - Mari Mohr R.N. - 06/11/2014 10:30 AM CST Adult Postprocedure Assessment Adult Postprocedure Assessment Entered On: 06/11/2014 11:31 CAT SITTER Performed On: 06/11/2014 10:30 CAT SITTER by MARI MOHR RN Vital Signs Height : 157 cm(Converted to: 5 ft 2 inch(es)) MARI MOHR RN - 06/11/2014 11:30 CAT SITTER General Level of Consciousness : Drowsy Orientation : Oriented x 3 Skin Color : Normal for ethnicity Skin Description : Dry Skin Temperature : Warm Pain Symptoms : Yes MARI MOHR RN - 06/11/2014 11:30 CAT SITTER Pain Pain Assessment Grid Pain 1 Location : Abdomen Intensity : 6 MARI MOHR RN - 06/11/2014 11:30 CAT SITTER [facility] Document Id: [id number] CAT SITTER!15 SITTER Miscellaneous - Wali Zapata R.N. - 06/11/2014 10:26 AM CST Anticoagulation Patient Intake Anticoagulation Patient Intake Entered On: 06/11/2014 10:30 CAT SITTER Performed On: 06/11/2014 10:26 CAT SITTER by WALI ZAPATA RN Plan INR goal range : 2.0 - 3.0 Duration of Therapy : Lifelong Tablet Size : 5 mg WALI ZAPATA RN - 06/11/2014 10:26 CAT SITTER Anticoagulation Management Plan Grid Date : 09/05/2013 [...] Two weeks Plan completed by : WALI Dowd RN - 06/11/2014 10:26 CAT SITTER WALI ZAPATA RN - 06/11/2014 10:26 WALI HARDWICK RN - 06/11/2014 10:26 WALI HARDWICK RN - 06/11/2014 10:26 CAT SITTER Date : 12/26/2013 CDT 01/30/2014 CDT 03/06/2014 [...] completed by : WALI Chau RN - 06/11/2014 10:26 CAT SITTER WALI ZAPATA RN - 06/11/2014 10:26 WALI HARDWICK RN - 06/11/2014 10:26 WALI HARDWICK RN - 06/11/2014 10:26 CAT SITTER Date : 03/20/2014 CDT 03/27/2014 CDT 04/10/2014 [...] by : darya lackey LM /pharmacy WALI ZAPATA RN - 06/11/2014 10:26 CAT SITTER WALI ZAPATA RN - 06/11/2014 10:26 CAT SITTER WALI ZAPATA RN - 06/11/2014 10:26 CAT SITTER WALI ZAPATA RN - 06/11/2014 10:26 CAT SITTER Date : 04/17/2014 CDT 04/24/2014 CDT 05/01/2014 CAT SITTER 05/15/2014 CAT SITTER Location of INR sample : Lab Lab [...] will trynoted dose called to mom Fabiola [id number] called to Fabiola/no changes Called to mother/Fabiola, not awareof any changes Recommend Recheck : One week One week Two weeks Two weeks Plan completed by : WALI DAVISON RN - 06/11/2014 10:26 CAT SITTER WALI ZAPATA RN - 06/11/2014 10:26 WALI HARDWICK RN - 06/11/2014 10:26 WALI HARDWICK RN - 06/11/2014 10:26 CAT SITTER Date : 06/03/2014 CAT SITTER 06/05/2014 CAT SITTER 06/10/2014 CAT SITTER 06/11/2014 CAT SITTER Location of INR sample : Lab Type [...] Called motherFabiola. Dorita will be staying in [place] 2wks post-surgery & have INR drawn there. [...] lovenox tomorrow AM as ordered. INR in [place] for next several weeks as pt will be recovering there. Recommend Recheck : Other: depending on Dr. Henriquez's preop. 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 : DVT Lower, Other: Deep Phlebitis-Leg NEC CHADS2 Score Date : 09/05/2013 CDT WALI ZAPATA RN - 06/11/2014 10:26 CAT SITTER Source: [facility] Document Id: [id number] CAT SITTER!195 SITTER Miscellaneous - Mari Mohr RViktor - 06/11/2014 9:58 AM CST Adult Postprocedure Assessment Adult Postprocedure Assessment Entered On: 06/11/2014 10:15 CAT SITTER Performed On: 06/11/2014 9:58 CAT SITTER by MARI MOHR RN Vital Signs Height : 157 cm(Converted to: 5 ft 2 inch(es)) MARI MOHR RN - 06/11/2014 10:10 CAT SITTER General Level of Consciousness : Drowsy Orientation : Oriented x 3 Skin Color : Normal for ethnicity Skin Description : Dry Skin Temperature : Warm Pain Symptoms : Yes MARI MOHR RN - 06/11/2014 10:10 CAT SITTER Pain Pain Assessment Grid Pain 1 Location : Abdomen Intensity : 5 Interventions : Cold, Medications, Repositioning MARI MOHR RN - 06/11/2014 10:10 CAT SITTER (Comment: pt says it is uncomfortable, but not able to really give me a number. Dad who is very involved in her care, says about at 5-6. [MARI MOHR RN - 06/11/2014 10:10 CAT SITTER] ) Incision/Wound Incision/Wound Care Grid Activity : Assessed Type : Surgical acute Location : Abdomen Laterality : Other: laproscopic incisions Drainage : None MARI MOHR RN - 06/11/2014 10:10 CAT SITTER I&O Other Intake : 1,400 mL (Comment: OR [MARI MOHR RN - 06/11/2014 10:10 CAT SITTER] ) MARI MOHR RN - 06/11/2014 10:10 CAT SITTER PARSAP Activity Status : Moves 4 extremities voluntarily or on command Dressing : None Respiratory Component : Able to deep breathe and cough freely Pain : Pain mild, handled by oral medication Circulation Component : BP 20% of preanesthetic level Ambulation : Able to stand up and walk straight Consciousness : Arouses on calling Fasting and Feeding : Nauseated (Comment: slight nausea [MARI MOHR RN - 06/11/2014 10:10 CAT SITTER] ) Oxygen Saturation - Sedation : Can maintain > 92% on room air Urine Output, PARSAP : Unable to void but comfortable PARSAP Score : 16 MARI MOHR RN - 06/11/2014 10:10 CAT SITTER [facility] Document Id: [id number] CAT SITTER!38 SITTER Miscellaneous - Mishel Rodriguez RViktor - 06/11/2014 9:55 AM CST Adult Postprocedure Assessment Adult Postprocedure Assessment Entered On: 06/11/2014 9:56 CAT SITTER Performed On: 06/11/2014 9:55 CAT SITTER by MISHEL RODRIGUEZ RN Vital Signs Height : 157 cm(Converted to: 5 ft 2 inch(es)) MISHEL RODRIGUEZ RN - 06/11/2014 9:55 CAT SITTER General Level of Consciousness : Drowsy Pain Symptoms : No MISHEL RODRIGUEZ RN - 06/11/2014 9:55 CAT SITTER Incision/Wound Incision/Wound Care Grid Activity : Assessed Type : Surgical acute Location : Abdomen Description : Dry MISHEL RODRIGUEZ RN - 06/11/2014 9:55 CAT SITTER I&O Other Intake : 1,400 mL MISHEL RODRIGUEZ RN - 06/11/2014 9:58 CAT SITTER Modified Alysha Activity : Moves 4 extremities voluntarily or on command Respiratory : Able to deep breathe and cough freely Circulation : BP +/- 20% of preprocedural level or not unusually high or low Consciousness : Arouses on calling O2 Saturation : O2 SAT at preprocedural level Alysha l Score : 9 MISHEL RODRIGUEZ RN - 06/11/2014 9:55 CAT SITTER Source: [facility] Document Id: [id number] CAT SITTER!3 SITTER Miscellaneous - Mishel Rodriguez R.N. - 06/11/2014 9:28 AM CST Adult Postprocedure Assessment Adult Postprocedure Assessment Entered On: 06/11/2014 9:39 CAT SITTER Performed On: 06/11/2014 9:28 CAT SITTER by MISHEL RODRIGUEZ RN Vital Signs Height : 157 cm(Converted to: 5 ft 2 inch(es)) MISHEL RODRIGUEZ RN - 06/11/2014 9:36 CAT SITTER General Level of Consciousness : Drowsy Pain Symptoms : No MISHEL RODRIGUEZ RN - 06/11/2014 9:36 CAT SITTER Respiratory Respiratory Patient Stated Symptoms : None Respirations : Unlabored All Lobes Breath Sounds : Clear Cough and Deep Breathe : Done MISHEL RODRIGUEZ RN - 06/11/2014 9:36 CAT SITTER Incision/Wound Incision/Wound Care Grid Activity : Assessed Type : Surgical acute Location : Abdomen Description : Dry, Other: 4 port sites Wound Dressing : Other: dermabond MISHEL RORDIGUEZ RN - 06/11/2014 9:36 CAT SITTER Peripheral IV Peripheral IV Assess/Intervention Grid Peripheral IV #1 IV Activity : Assessment Number of Attempts : 1 Date of Insertion : 06/11/2014 CAT SITTER IV Site : Hand Laterality : Right Catheter Size : 20 Catheter Type : Protective Site Condition : No complications MISHEL RODRIGUEZ RN - 06/11/2014 9:36 CAT SITTER Modified Alysha Activity : Moves 4 extremities voluntarily or on command Respiratory : Able to deep breathe and cough freely Circulation : BP +/- 20% of preprocedural level or not unusually high or low Consciousness : Arouses on calling O2 Saturation : O2 SAT at preprocedural level Alysha l Score : 9 MISHEL RODRIGUEZ RN - 06/11/2014 9:36 CAT SITTER Source: [facility] POWERCHART Document Id: [id number] CAT SITTER!37 SITTER Miscellaneous - Mari Mohr R.N. - 06/11/2014 6:36 AM CST Height/Length Height/Length Entered On: 06/11/2014 6:36 CAT SITTER Performed On: 06/11/2014 6:36 CAT SITTER by MARI MOHR RN Height/Length Height : 157 cm MARI MOHR RN - 06/11/2014 6:36 CAT SITTER Source: [facility] [employer] Document Id: [id number] CAT SITTER!3 SITTER Miscellaneous - Guillermo Chacon R.N. - 06/06/2014 9:57 AM CST Orders for 06/11/14 From: GUILLERMO CHACON RN To: SUSAN HEARD MD; Cc: General Surgery Nurse; Sent: 06/06/2014 09:57:00 CAT SITTER Subject: Orders for 06/11/[address] Heard, [facility]14. Thank you! Guillermo Chacon RN Surgery Nurse Medical Records Clerk Source: [facility] [employer] Document Id: [id number] documented in this encounter Plan of Treatment Not on filedocumented as of this encounter Procedures Procedure Name Priority Date/Time Associated Comments Diagnosis PROTHROMBIN TIME Routine 06/11/2014 6:35 AM Resul ts for this (PT), P CAT SITTER procedure are i n the results section. SURGICAL PATHOLOGY Routine 06/11/2014 12:00 Resul ts for this AM CAT SITTER procedure are i n the results section. documented in this encounter Results PT (Prothrombin Time) with INR (06/11/2014 6:35 AM CAT SITTER) Analysis Performed At Patho logist Time Signature Prothrombin 9.8 8.7 - 11.8 POWERCHART Time, P SECONDS INR 1.0 0.9 - 1.1 POWERCHART INR Comment: Recommended INR for prophylaxis/treatmen t of Venous Thrombosis, Pulmonary Embolism, Myocardial Infarction, and Embolism from Atrial Fibrillation is 2.0- 3.0 (Standard Therapy) Recommended INR for Mechanical Heart Tejal ves and recurrent Systemic Embolism is 2.5-3.5 (Intensive Therapy) Specimen (Source) Anatomical Collection Method Collection Time Re ceived Time Location / / Volume Laterality Blood 06/11/2014 6:35 AM CAT SITTER Melvi Ramirez M.D. LAB BLOOD ADD-ON Performing Organization Address City/State/ZIP Code Phon e Number POWERCHART Pathology Surgical Pathology (06/11/2014 12:00 AM CAT SITTER) Specimen (Source) Anatomical Location Collection Method / Collectio n Time Received Time / Laterality Volume 06/11/2014 Narrative [facility] - 06/12/20 11:02 AM CAT SITTER Pat: DORITA SHEFFIELD ?? ([id number]) Age/Sex: 39 ??F ??Loc: ? -00 ([place] ) [facility] ??ANDRES: 06/11/14 00:00 ??REC: 00:00 ??PHYS: , Surgical Pathology ?Gallbladder Patient Name: DORITA SHEFFIELD MR#: [id number] Submitting Physician: SUSAN HEARD MD [id number] Specimen #[id number] Performing Lab: ??[address] [address] Source: Gallbladder Gross Description Received in formalin is a gallbladder th at measures 8.7 x 2.5 x 2.4 cm. ??The serosa is smooth, shiny, and intact. ??T he wall is thin and no polyps or masses are identified. ??There are 63 cholester ol gallstones that measure up to 0.7 cm in greatest dimension. ??Manager Post sections of the gallbladder are submitted in one cassette. JULIET/ed Diagnosis Gallbladder, cholecystectomy: CHOLELITHIASIS WITH MILD CHRONIC CHOLECY STITIS. Electronically Signed By Shawn Vargas ??Jonnathan Pierre - 06/12/2014 pjs/06/12/2014 Historical Provider LAB SURG PATH ORDERABLES Performing Organization Address City/State/ZIP Code Phon e Number [facility] documented in this encounter Visit Diagnoses Not on filedocumented in this encounter
--- OUTSIDE RECORDS SUMMARY | 2022-04-25 16:03 | XMS_ITS | Encounter Summary ---
:1975 Author Organization [facility] Address [address] [place] [address] Care Team Providers Name Role Phone Unavailable Primary Care Provider Unavailable Encounter Details Date Type Department Care Team Description 07/10/[address] [facility] Marsha Henriquez M.D. [address] [place], [place] [address] (Wo rk) Social History [...] - - Height 157 cm (5' 1.81) 07/10/2014 7:24 AM PRESS MACHINE OPERATOR Body Mass Index - - documented in this encounter Medications at Time of Discharge Medication Sig Dispensed Refills Start Date End Date multivitamin tablet Take 2 tablets by 0 3 mouth daily. FLUORIDE, SODIUM, Apply 1 application 0 3 12/31/2019 DENTAL topically 2 (two) times a day. documented as of this encounter Miscellaneous Notes Miscellaneous - Khadar Banda, RMichaelN. - 07/10/2014 10:22 AM CST Anticoagulation Patient Intake Anticoagulation Patient Intake Entered On: 07/10/2014 10:26 PRESS MACHINE OPERATOR Performed On: 07/10/2014 10:22 PRESS MACHINE OPERATOR by KHADAR BANDA RN Plan INR goal range : 2.0 - 3.0 Duration of Therapy : Lifelong Tablet Size : 5 mg KHADAR BANDA RN - 07/10/2014 10:22 PRESS MACHINE OPERATOR Anticoagulation Management Plan Grid Date : [...] completed by : KHADAR Manning RN - 07/10/2014 10:22 PRESS MACHINE OPERATOR KHADAR BANDA RN - 07/10/2014 10:22 PRESS MACHINE OPERATOR KHADAR BANDA RN - 07/10/2014 10:22 KHADAR PALOMINO RN - 07/10/2014 10:22 PRESS MACHINE OPERATOR Date : 12/26/2013 CDT 01/30/2014 CDT [...] 03/10/2014 Other: 03/20/14 Plan completed by : KHADRA Cho RN - 07/10/2014 10:22 PRESS MACHINE OPERATOR KHADAR BANDA RN - 07/10/2014 10:22 PRESS MACHINE OPERATOR KHADAR BANDA RN - 07/10/2014 10:22 PRESS MACHINE OPERATOR KHADAR BANDA RN - 07/10/2014 10:22 PRESS MACHINE OPERATOR Date : 03/20/2014 CDT 03/27/2014 CDT [...] completed by : darya lackey [facility]/pharmacy KHADAR BANDA RN - 07/10/2014 10:22 PRESS MACHINE OPERATOR KHADAR BANDA RN - 07/10/2014 10:22 PRESS MACHINE OPERATOR KHADAR BANDA RN - 07/10/2014 10:22 PRESS MACHINE OPERATOR KHADAR BANDA RN - 07/10/2014 10:22 PRESS MACHINE OPERATOR Date : 04/17/2014 CDT 04/24/2014 CDT 05/01/2014 PRESS MACHINE OPERATOR 05/15/2014 PRESS MACHINE OPERATOR Location of INR sample : Lab [...] will trynoted dose called to mom Fabiola [phone] called to Fabiola/no changes Called to mother/Fabiola, not awareof any changes Recommend Recheck : One week One week Two weeks Two weeks Plan completed by : KHADAR HACKETT RN - 07/10/2014 10:22 KHADAR PALOMINO RN - 07/10/2014 10:22 KHADAR PALOMINO RN - 07/10/2014 10:22 KHADAR PALOMINO RN - 07/10/2014 10:22 PRESS MACHINE OPERATOR Date : 06/03/2014 PRESS MACHINE OPERATOR 06/05/2014 PRESS MACHINE OPERATOR 06/10/2014 PRESS MACHINE OPERATOR 06/11/2014 PRESS MACHINE OPERATOR Location of INR sample : Lab [...] Fabiola granados. Hue will be staying in [place] 2wks post-surgery & have INR drawn there. [...] completed by : KHADAR SANDERS RN - 07/10/2014 10:22 PRESS MACHINE OPERATOR KHADAR BANDA RN - 07/10/2014 10:22 PRESS MACHINE OPERATOR KHADAR BANDA RN - 07/10/2014 10:22 KHADAR PALOMINO RN - 07/10/2014 10:22 PRESS MACHINE OPERATOR Date : 06/14/2014 PRESS MACHINE OPERATOR 06/14/2014 PRESS MACHINE OPERATOR 06/16/2014 PRESS MACHINE OPERATOR 06/23/2014 PRESS MACHINE OPERATOR Location of INR sample : Clinic [...] Warfarin Dose : 20 20 Comment : [place] lab called with INR result from 06/13, reported they left a message with Dr. Henriquez and hadn't heard back, spoke with mother, Fabiola, and gave doses, continue Lovenox and repeat INR 06/16, message left with INR clinic in to contact CF Please contact [place] lab on 06/16 for result and may call Fabiola at [phone] with instructions call to Fabiola/will stop Lovenox injections and take noted dose/pt has an appt here in [place] 06/23 so will do lab appt here that day Called to Fabioal/ Hue will be back at [facility] by next draw. will have done on . no changes to meds/diet. Recommend Recheck : Two days One week Two weeks Plan completed by : KHADAR Mattson LM RN - 07/10/2014 10:22 PRESS MACHINE OPERATOR KHADAR BANDA RN - 07/10/2014 10:22 PRESS MACHINE OPERATOR KHADAR BANDA RN - 07/10/2014 10:22 PRESS MACHINE OPERATOR KHADAR BANDA RN - 07/10/2014 10:22 PRESS MACHINE OPERATOR Date : 07/10/2014 PRESS MACHINE OPERATOR Location of INR sample : Lab Type of Sample : Venous INR Result : 1.9 Warfarin Dose : 5mg 07/10, then 5mg Mon, 2.5mg all other days Total Weekly Warfarin Dose : 20 Comment : called to Fabiola/Mom Recommend Recheck : One week Plan completed by : KHADAR Mae RN - 07/10/2014 10:22 PRESS MACHINE OPERATOR Anticoagulation Assessment / History Visit : Phone management Plan of Care Date : 01/29/2008 CDT Primary Physician Anticoagulation : TASHA HENRIQUEZ MD 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 Document Id: [id number] PRESS MACHINE OPERATOR!244 S MACHINE OPERATOR Miscellaneous - Khadar Banda RViktor - 07/10/2014 10:19 AM CST Results Notification From: KHADAR BANDA RN ( Anticoagulation Nurse) To: Anticoagulation Nurse; Sent: 07/10/2014 10:19:44 PRESS MACHINE OPERATOR Show up: 07/10/2014 10:20:00 PRESS MACHINE OPERATOR Subject: Results Notification Results: Date Result Name Value Ref Range 07/10/2014 08:05 PT 20.5 second(s) (8.7 - 11.8) 07/10/2014 08:05 INR 1.9 INR (0.9 - 1.1) Source: [facility] POWERCHART Document Id: [id number] Electronically signed by Conversion, [facility] Physical Aerodynamicist [id number] at 11/20/2016 10:25 PM CDT documented in this encounter Plan of Treatment Not on filedocumented as of this encounter Procedures Procedure Name Priority Date/Time Associated Comments Diagnosis PROTHROMBIN TIME Routine 07/10/2014 8:05 AM Resul ts for this (PT), P PRESS 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 documented in this encounter Results (ABNORMAL) PT (Prothrombin Time) with INR (07/10/2014 8:05 AM PRESS MACHINE OPERATOR) [facility] Method Time Signature Prothrombin 20.5 (H) 8.7 - 11.8 POWERCHART Time, P SECONDS INR 1.9 (H) 0.9 - 1.1 POWERCHART INR Comment: Recommended INR for prophylaxis/treatmen t of Venous Thrombosis, Pulmonary Embolism, Myocardial Infarction, and Embolism from Atrial Fibrillation is 2.0- 3.0 (Standard Therapy) Recommended INR for Mechanical Heart Tejal ves and recurrent Systemic Embolism is 2.5-3.5 (Intensive Therapy) Specimen (Source) Anatomical Collection Method Collection Time Re ceived Time Location / / Volume Laterality Blood 07/10/2014 8:05 AM PRESS MACHINE OPERATOR Tasha Henriquez M.D. LAB BLOOD ADD-ON Performing Organization Address City/State/ZIP Code Phon e Number POWERCHART documented in this encounter Visit Diagnoses Not on filedocumented in this encounter
--- OUTSIDE RECORDS SUMMARY | 2022-04-25 16:03 | XMS_ITS | Encounter Summary ---
:1975 Author Organization [facility] Address [address] [place] [address] Care Team Providers Name Role Phone Unavailable Primary Care Provider Unavailable Encounter Details Date Type Department Care Team Description 09/11/2014 Hospital Encounter [facility]X [facility] Marsha Henriquez M.D. [address] [place], [place] [address] (Wo rk) Social History [...] - - Height 157 cm (5' 1.81) 09/11/2014 7:45 AM CDT Body Mass Index - - documented in this encounter Medications at Time of Discharge Medication Sig Dispensed Refills Start Date End Date multivitamin tablet Take 2 tablets by 0 3 mouth daily. FLUORIDE, SODIUM, Apply 1 application 0 3 12/31/2019 DENTAL topically 2 (two) times a day. documented as of this encounter Miscellaneous Notes Miscellaneous - Wali Zapata, RMichaelN. - 09/11/2014 4:23 PM CDT INR orders From: WALI ZAPATA RN ( Anticoagulation Nurse) To: DORITA SHEFFIELD Sent: 09/11/2014 16:23:28 CDT ! Subject: INR orders Your INR today was: 1.8 Your target range for your condition is: 2-3 You should: Take 5mg tonight and then resume dosing below Your Coumadin Tablet Strength should be: 5mg Daily Dose: SUN: 2.5 mg MON: 5 mg TUE: 2.5 mg WED: 2.5 mg THUR: 2.5 mg FRI: 2.5 mg SAT: 2.5 mg Number of Pills to take each day: SUN: 06/27 MON: 1 TUE: 2 WED: 06/27 THUR: 06/27 FRI: 06/27 SAT: 06/27 Your next INR appointment is scheduled for: , 09/25/14 at [facility]. INRs drawn after 4:00PM might not be reported to the patient until the following day. If you have questions regarding any of the above information or feel the information is not accurateplease call [phone] or ext. [phone]. [facility] in [place] INR Clinic staff: Wali Mcclellan RN; Wali Zapata RN; Eliana Farooq, ANGELINE; Eliana Myers, ANGELINE; Ermelinda Casas, RN; Mima Campo, ANGELINE; Khadar Banda, RN Source: [facility] POWERCHART Document Id: [id number] Electronically signed by [facility] Distribution Driver [id number] at 11/21/2016 2:04 PM CDT Miscellaneous - Wali Zapata, R.N. - 09/11/2014 4:23 PM CDT Anticoagulation Patient Intake Anticoagulation Patient Intake Entered On: 09/11/2014 16:24 CDT Performed On: 09/11/2014 16:23 CDT by WALI ZAPATA RN Plan INR goal range : 2.0 - 3.0 Duration of Therapy : Lifelong Tablet Size : 5 mg WALI ZAPATA RN - 09/11/2014 16:23 CDT Anticoagulation Management Plan Grid Date : [...] completed by : WALI Dowd RN - 09/11/2014 16:23 CDT WALI ZAPATA RN - 09/11/2014 16:23 CDT WALI ZAPATA RN - 09/11/2014 16:23 CDT WALI ZAPATA RN - 09/11/2014 16:23 CDT Date : 12/26/2013 CDT 01/30/2014 CDT [...] completed by : WALI Chau RN - 09/11/2014 16:23 CDT WALI ZAPATA RN - 09/11/2014 16:23 CDT WALI ZAPATA RN - 09/11/2014 16:23 CDT WALI ZAPATA RN - 09/11/2014 16:23 CDT Date : 03/20/2014 CDT 03/27/2014 CDT [...] lackey LM /pharmacy WALI ZAPATA RN - 09/11/2014 16:23 CDT WALI ZAPATA RN - 09/11/2014 16:23 CDT WALI ZAPATA RN - 09/11/2014 16:23 CDT WALI ZAPATA RN - 09/11/2014 16:23 CDT Date : 04/17/2014 CDT 04/24/2014 CDT 05/01/2014 CAP AND STUD MACHINE OPERATOR 05/15/2014 CAP AND STUD MACHINE OPERATOR Location of INR sample : [...] will trynoted dose called to mom Fabiola [phone] called to Fabiola/no changes Called to mother/Fabiola, not awareof any changes Recommend Recheck : One week One week Two weeks Two weeks Plan completed by : WALI DAVISON RN - 09/11/2014 16:23 CDT WALI ZAPATA RN - 09/11/2014 16:23 CDT WALI ZAPATA RN - 09/11/2014 16:23 CDT WALI ZAPATA RN - 09/11/2014 16:23 CDT Date : 06/03/2014 CAP AND STUD MACHINE OPERATOR 06/05/2014 CAP AND STUD MACHINE OPERATOR 06/10/2014 CAP AND STUD MACHINE OPERATOR 06/11/2014 CAP AND STUD MACHINE OPERATOR Location of INR sample : [...] Called motherFabiolaMichael Swann will be staying in [place] 2wks post-surgery & have INR drawn there. [...] lovenox tomorrow AM as ordered. INR in [place] for next several weeks as pt will be recovering there. Recommend Recheck : Other: depending on Dr. Henriquez's preop. Other: 06/18 Other: 06/13/14 Plan completed by : INESSA WYLIE JM WALI CARSON RN - 09/11/2014 16:23 CDT WALI ZAPATA RN - 09/11/2014 16:23 CDT WALI ZAPATA RN - 09/11/2014 16:23 CDT WALI ZAPATA RN - 09/11/2014 16:23 CDT Date : 06/14/2014 CAP AND STUD MACHINE OPERATOR 06/14/2014 CAP AND STUD MACHINE OPERATOR 06/16/2014 CAP AND STUD MACHINE OPERATOR 06/23/2014 CAP AND STUD MACHINE OPERATOR Location of INR sample : [...] Warfarin Dose : 20 20 Comment : [place] lab called with INR result from 06/13, reported they left a message with Dr. Henriquez and hadn't heard back, spoke with mother, Fabiola, and gave doses, continue Lovenox and repeat INR 06/16, message left with INR clinic in to contact CF Please contact [place] lab on 06/16 for result and may call Fabiola at [phone] with instructions call to Fabiola/will stop Lovenox injections and take noted dose/pt has an appt here in 06/23 so will do lab appt here that day Called to Fabiola/ Dorita will be back at [facility] by next draw. will have done on . no changes to meds/diet. Recommend Recheck : Two days One week Two weeks Plan completed by : WALI Senior LM, RN - 09/11/2014 16:23 CDT WALI ZAPATA RN - 09/11/2014 16:23 CDT WALI ZAPATA RN - 09/11/2014 16:23 CDT WALI ZAPATA RN - 09/11/2014 16:23 CDT Date : 07/10/2014 CAP AND STUD MACHINE OPERATOR 07/17/2014 CAP AND STUD MACHINE OPERATOR 07/31/2014 CAP AND STUD MACHINE OPERATOR 09/11/2014 CDT Location of INR sample [...] completed by : darya WYLIE ly WALI CARSON RN - 09/11/2014 16:23 CDT WALI ZAPATA RN - 09/11/2014 16:23 CDT WALI ZAPATA RN - 09/11/2014 16:23 CDT WALI ZAPATA RN - 09/11/2014 16:23 CDT Anticoagulation Assessment / History Visit : Phone management Plan of Care Date : 01/29/2008 CDT Primary Physician Anticoagulation : TASHA HENRIQUEZ MD 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 - 09/11/2014 11:48 AM CDT INR order renewal Document Contains Addenda Addendum by TASHA HENRIQUEZ MD on 11 September 2014 12:19:16 CDT From: TASHA HENRIQUEZ MD Sent: 09/11/2014 12:19:16 CDT Subject: RE:INR order renewal Approved Order:Anticoagulation Clinic Order Details: 09/11/2014 12:19 CDT, 09/12/2015 23:59 CDT, 2 - 3, g. Lifelong, DVT, lower extremity Primary Hypercoagulable State, [facility] [employer] Signed by TASHA HENRIQUEZ MD 09/11/2014 12:19:15 From: WALI ZAPATA RN ( Anticoagulation Nurse) To: TASHA HENRIQUEZ MD; Sent: 09/11/2014 11:48:57 CDT Subject: INR order renewal On hold pending signature Order:Anticoagulation Clinic Order Details: 09/11/2014 11:48 CDT, 09/12/2015 23:59 CDT, 2 - 3, g. Lifelong, DVT, lower extremity Primary Hypercoagulable State, [facility] Please approve the annual INR clinic renewal order if you agree. Source: [facility] POWERCHART Document Id: [id number] Electronically signed by Conversion, [facility] Distribution Driver [id number] at 11/21/2016 2:04 PM CDT Miscellaneous - Khadar Banda, R.N. - 09/11/2014 10:04 AM CDT Results Notification Document Contains Addenda Addendum by WALI ZAPATA RN on 11 September 2014 16:25:53 CDT LMTC with changes. Orders left on home machine. Letter sent via POS. Addendum by WALI ZAPATA RN on 11 September 2014 11:50:26 CDT LMTC From: KHADAR BANDA RN ( Anticoagulation Nurse) To: Anticoagulation Nurse; Sent: 09/11/2014 10:04:18 CDT Show up: 09/11/2014 10:05:00 CDT Subject: Results Notification Results: Date Result Name Value Ref Range 09/11/2014 08:10 PT 19.1 second(s) 09/11/2014 08:10 INR 1.8 INR (0.8 - 1.1) Source: [facility] POWERCHART Document Id: [id number] Electronically signed by Conversion, [facility] Distribution Driver [id number] at 11/21/2016 2:04 PM CDT documented in this encounter Plan of Treatment Not on filedocumented as of this encounter Procedures Procedure Name Priority Date/Time Associated Comments Diagnosis PROTHROMBIN TIME Routine 09/11/2014 8:10 AM Resul ts for this (PT), P CDT procedure are i n the results section. documented in this encounter Results (ABNORMAL) PT (Prothrombin Time) with INR (09/11/2014 8:10 AM CDT) [facility] Method Time Signature Prothrombin 19.1 SECONDS POWERCHART Time, P INR 1.8 (H) [...] Time Location / / Volume Laterality Blood 09/11/2014 8:10 AM CDT Tasha Henriquez M.D. LAB BLOOD ADD-ON Performing Organization Address City/State/ZIP Code Phon e Number POWERCHART documented in this encounter Visit Diagnoses Not on filedocumented in this encounter
--- OUTSIDE RECORDS SUMMARY | 2022-04-25 16:03 | XMS_ITS | Encounter Summary ---
:1975 Author Organization [facility] Address [address] [place] [address] Care Team Providers Name Role Phone Unavailable Primary Care Provider Unavailable Encounter Details Date Type Department Care Team Description 06/23/2014 Hospital Encounter HX [facility] Susan Heard SURGCLINI M.D. [address] [place] [address] (Wo rk) Social History Tobacco Use Types Packs/Day Years Used Date Smoking Tobacco: Never Assessed Sex Assigned at Date Recorded Not on file documented as of this encounter Last Filed Vital Signs Vital Sign Reading Time Taken Comments Blood Pressure 95/76 06/23/2014 8:54 AM LEVEL VIAL GRINDER Pulse 88 06/23/2014 8:54 AM LEVEL VIAL GRINDER Temperature - - Respiratory Rate - - Oxygen Saturation - - Inhaled Oxygen Concentration - - Weight - - Height 157 cm (5' 1.81) 06/23/2014 8:54 AM LEVEL VIAL GRINDER Body Mass Index - - documented in this encounter Medications at Time of Discharge Medication Sig Dispensed Refills Start Date End Date multivitamin tablet Take 2 tablets by 0 3 mouth daily. FLUORIDE, SODIUM, Apply 1 application 0 3 12/31/2019 DENTAL topically 2 (two) times a day. documented as of this encounter Progress Notes Susan Heard M.D. - 06/23/2014 8:51 AM CST [id number] HISTORY OF PRESENT ILLNESS Dorita is a 39-year-old female, who underwent a laparoscopic cholecystectomy for symptomatic cholelithiasis on 06/11/2014. Postoperatively she has done well. She is feeling much better since her gallbladder has removed. She is having no pain. She has had no nausea, vomiting, diarrhea, constipation, chest pain, shortness of breath, or yellowing of her skin or eyes. She is tolerating a regular diet. Her incisions are healing well with no redness or drainage. Dorita's crpzqz-uh-axg is present with her in clinic today. PHYSICAL EXAMINATION VITAL SIGNS: Temperature 36.5, heart rate 88, blood pressure 195/76. GENERAL: No acute distress. Sitting comfortably in examination room. EYES: No scleral icterus. RESPIRATORY: Normal respiratory effort. No wheezing. No cough. GASTROINTESTINAL: Abdomen is soft, nontender, nondistended. Incisions are clean, dry, and intact with no erythema, no induration, no drainage. SKIN: Warm and dry. No rashes or jaundice. NEUROLOGICAL: Alert and oriented. PATHOLOGY: Gallbladder shows cholelithiasis with mild chronic cholecystitis. These results were shared with the patient and her family. IMPRESSION/REPORT/PLAN Hnquw-wzzy-cfj female status post laparoscopic cholecystectomy, doing well postoperatively. PLAN: Dorita should continue to heal well from her surgery. She has done very well so far. She is following up in the INR clinic to ensure that she reaches goal anticoagulation. The patient and her family can call me with any questions or concerns or follow up on an as-needed basis. Susan Heard M.D./erin cc: Tahsa Henriquez M.D. [address] [place] [address] Electronically Signed By: SUSAN HEARD MD On: 06/24/2014 12:09 PM Modified by and Electronically Signed by: SUSAN HEARD MD On: 06/24/2014 12:09 PM Source: [facility] MHSDOLBEYNONRADSYS Document Id: [id number] L VIAL GRINDER documented in this encounter Nursing Notes Susan Heard M.D. - 06/23/2014 9:35 AM CST Ambulatory Patient Education The following Patient Education Materials have been given to the patient: Patient Education Materials: Ambulatory POST OP WOUND CHECK, General Ambulatory Wound Check After Surgery, No Complication Surgery involves cutting through the layers of the skin, fatty tissue, muscle and sometimes bone andcartilage. Sutures are used to close all layers of the wound. The sutures on the inside will dissolve in about 2-3 weeks. Any sutures or juan f used on the outside need to be removed in about 7-14 days, depending on the location. It is normal to have some clear or bloody discharge on the dressing for the first few days after surgery. If your wound was sutured closed, you should not have to change the dressing more than twice a day in the first few days. Bleeding or discharge requiring more frequent dressing changes can be a sign of a complication. It is normal to feel pain at the incision site. The pain decreases as the wound heals. Most of the pain and soreness from the skin incision should go away by the time the sutures or juan f are removed. Soreness and pain from deeper tissues may last another week or two. Pain that continues more than a few weeks after surgery or pain that worsens anytime after surgery can be a sign of a complication, such as: ?? Infection ?? Separation of wound edges ?? Collection of blood or other body fluid below the skin Home Care: Follow any dietary advice given by your doctor. Drink enough fluids to stay well hydrated. You may use acetaminophen (Tylenol) or ibuprofen (Motrin, Advil) to control pain, unless another medicine was prescribed. [NOTE: If you have chronic liver or kidney disease or ever had a stomach ulcer or GI bleeding, talk with your doctor before using these medicines.] Change bandages as directed or sooner if they become wet or stained with blood or fluid from the wound. Follow Up with your doctor as scheduled or as advised by our staff for your next wound check or suture/staple/tape removal. Return Promptly or contact your doctor if any of the following occur: ?? Increasing pain at the site of surgery ?? Fever over 100.4?? F (38.0?? C) ?? Redness around the wound ?? Fluid, pus or blood draining from the wound ?? Vomiting, constipation or diarrhea ?? Shortness of breath or chest pain ?? [id number] [facility], [address] [place] [address], [place] [id number]. All rights reserved. This information is not intended as a substitute for professional medical care. Always follow your healthcare professional's instructions. Source: [facility] POWERCHART Document Id: [id number] L VIAL GRINDER documented in this encounter Miscellaneous Notes Miscellaneous - Susan Heard M.D. - 06/23/2014 9:35 AM CST Ambulatory Patient Summary [facility] [address], [address] [place], [place] [id number] Visit Information Name: DORITA SHEFFIELD [facility] Number: [id number] Current Date: 06/23/2014 09:35:23 Physicians Attending Provider: SUSAN HEARD MD Primary Care Provider: TASHA HENRIQUEZ MD [...] 1 Tablet(s), Oral, two times a day fluoride topical (Prevident 5000 Plus topical paste) 1 luther, Topical, two times a day Misc Prescription (NEW MED) See Instructions Rx mouth wash - daily multivitamin (multivitamin) 1 tab, Oral, once a day traMADol (traMADol 50 mg oral tablet) 2 Tablet(s), Oral, every 6 hours as needed for Pain warfarin (warfarin 5 mg oral tablet) See Instructions 5mg Mon, 2.5mg all other days or as directed by the INR clinic as of 04/17/14 warfarin (warfarin 1 mg oral tablet) See Instructions 1 mg daily or as directed per INR Clinic Stop Taking the Following Medications: Medication list as of 06-23-14 09:35 Attention: If you have any medications at home that are not on this list, DO NOT take them until youcontact your provider for clarification. Give a copy of your medication list to your primary care provider. Update your medication list any time medications or doses are changed and carry your medication list at all times in case of emergency. Electronically Signed By: SUSAN HEARD MD Signed On:23-JUN-2014 09:34:17 Your Allergies & Intolerances Substance Reaction Symptoms [...] local Clinic if further appointment detail needed. Wound Check After Surgery, No Complication Surgery involves cutting through the layers of the skin, fatty tissue, muscle and sometimes bone andcartilage. Sutures are used to close all layers of the wound. The sutures on the inside will dissolve in about 2-3 weeks. Any sutures or juan f used on the outside need to be removed in about 7-14 days, depending on the location. It is normal to have some clear or bloody discharge on the dressing for the first few days after surgery. If your wound was sutured closed, you should not have to change the dressing more than twice a day in the first few days. Bleeding or discharge requiring more frequent dressing changes can be a sign of a complication. It is normal to feel pain at the incision site. The pain decreases as the wound heals. Most of the pain and soreness from the skin incision should go away by the time the sutures or juan f are removed. Soreness and pain from deeper tissues may last another week or two. Pain that continues more than a few weeks after surgery or pain that worsens anytime after surgery can be a sign of a complication, such as: ?? Infection ?? Separation of wound edges ?? Collection of blood or other body fluid below the skin Home Care: Follow any dietary advice given by your doctor. Drink enough fluids to stay well hydrated. You may use acetaminophen (Tylenol) or ibuprofen (Motrin, Advil) to control pain, unless another medicine was prescribed. [NOTE: If you have chronic liver or kidney disease or ever had a stomach ulcer or GI bleeding, talk with your doctor before using these medicines.] Change bandages as directed or sooner if they become wet or stained with blood or fluid from the wound. Follow Up with your doctor as scheduled or as advised by our staff for your next wound check or suture/staple/tape removal. Return Promptly or contact your doctor if any of the following occur: ?? Increasing pain at the site of surgery ?? Fever over 100.4? F (38.0? C) ?? Redness around the wound ?? Fluid, pus or blood draining from the wound ?? Vomiting, constipation or diarrhea ?? Shortness of breath or chest pain ?? [id number] [place] [address]. All rights reserved. This information is not intended as a substitute for professional medical care. Always follow your healthcare professional's instructions. Your Goals/Additional instructions: Source: [facility] POWERCHART Document Id: [id number] L VIAL GRINDER Miscellaneous - Susan Heard M.D. - 06/23/2014 9:35 AM CST Ambulatory Discharge Medication List [facility] [address] [place], [place] [id number] Visit Information Name: DORITA SHEFFIELD [facility] Number: [id number] Visit Date: 06/23/2014 09:35:22 Attending Provider: SUSAN HEARD MD Primary Care Provider: TASHA HENRIQUEZ MD [...] 1 Tablet(s), Oral, two times a day fluoride topical (Prevident 5000 Plus topical paste) 1 luther, Topical, two times a day Misc Prescription (NEW MED) See Instructions Rx mouth wash - daily multivitamin (multivitamin) 1 tab, Oral, once a day traMADol (traMADol 50 mg oral tablet) 2 Tablet(s), Oral, every 6 hours as needed for Pain warfarin (warfarin 5 mg oral tablet) See Instructions 5mg Mon, 2.5mg all other days or as directed by the INR clinic as of 04/17/14 warfarin (warfarin 1 mg oral tablet) See Instructions 1 mg daily or as directed per INR Clinic Stop Taking the Following Medications: Medication list as of 06-23-14 09:35 Attention: If you have any medications at home that are not on this list, DO NOT take them until youcontact your provider for clarification. Give a copy of your medication list to your primary care provider. Update your medication list any time medications or doses are changed and carry your medication list at all times in case of emergency. Electronically Signed By: SUSAN HEARD MD Signed On:23-JUN-2014 09:34:17 Additional Information: Source: [facility] POWERCHART Document Id: [id number] [facility] Miscellaneous - Sudha Montes L.P.N. - 06/23/2014 8:54 AM CST Adult German Tutor Intake/History Adult German Tutor Intake/History Entered On: 06/23/2014 8:56 LEVEL VIAL GRINDER Performed On: 06/23/2014 8:54 LEVEL VIAL GRINDER by SUDHA FLORENCE LPN Intake Chief Complaint : 1st post op lap brianna Temperature Core : 36.5 DegC(Converted to: 97.7 DegF) Peripheral Pulse Rate : 88 /min Systolic Blood Pressure : 95 mmHg Diastolic Blood Pressure : 76 mmHg NIBP Mean : 82 mmHg Height : 157 cm(Converted to: 5 ft 2 inch(es), 62 inch(es)) SUDHA FLORENCE LPN - 06/23/2014 8:54 LEVEL VIAL GRINDER General Info Information Given By : Patient Languages : Slovenian Is Patient Female and 13-50 no hysterectomy : Yes Status : Patient denies Are you ? : No SUDHA FLORENCE LPN - 06/23/2014 8:54 LEVEL VIAL GRINDER Subjective Pain Symptoms : No SUDHA FLORENCE LPN - 06/23/2014 8:54 LEVEL VIAL GRINDER Dependent Habits Tobacco Use/Currently Using : No Exposure to Tobacco Smoke : Other: never smoker Smoking Status : Never smoker SUDHA FLORENCE LPN - 06/23/2014 8:54 LEVEL VIAL GRINDER ID Screen Drug Resistant Organism : No Travel Within Last 21 Days : No SUDHA FLORENCE LPN - 06/23/2014 8:54 LEVEL VIAL GRINDER Source: [facility] POWERCHART Document Id: [id number] LEVEL VIAL GRINDER!24 L VIAL GRINDER documented in this encounter Plan of Treatment Not on filedocumented as of this encounter Visit Diagnoses Not on filedocumented in this encounter
--- OUTSIDE RECORDS SUMMARY | 2022-04-25 16:03 | XMS_ITS | Encounter Summary ---
:1975 Author Organization [facility] Address [address] [place] [address] Care Team Providers Name Role Phone Unavailable Primary Care Provider Unavailable Encounter Details Date Type Department Care Team Description 08/21/2014 Hospital Encounter HX [facility] Marsha Garibay M.D. [address] [place], [place] [address] (Wo rk) Social History [...] - - Height 157 cm (5' 1.81) 08/21/2014 6:59 AM FINANCE INSURANCE MANAGER Body Mass Index - - documented in this encounter Medications at Time of Discharge Medication Sig Dispensed Refills Start Date End Date multivitamin tablet Take 2 tablets by 0 3 mouth daily. FLUORIDE, SODIUM, Apply 1 application 0 3 12/31/2019 DENTAL topically 2 (two) times a day. documented as of this encounter Miscellaneous Notes Miscellaneous - Khadar Medina R.N. - 08/21/2014 10:44 AM CST Results Notification Document Contains Addenda Addendum by SUDHA DAVID RN on 21 August 2014 12:01:39 FINANCE INSURANCE MANAGER Done From: KHADAR MEDINA RN ( Anticoagulation Nurse) To: AYDE Anticoagulation Nurse; Sent: 08/21/2014 10:44:38 FINANCE INSURANCE MANAGER Show up: 08/21/2014 10:45:00 FINANCE INSURANCE MANAGER Subject: Results Notification Results: Date Result Name Value Ref Range 08/21/2014 08:07 PT 32.4 second(s) (8.7 - 11.8) 08/21/2014 08:07 INR 2.9 INR (0.9 - 1.1) Source: [facility] POWERCHART Document Id: [id number] Electronically signed by Conversion, [facility] Conservation Technician [id number] at 11/21/2016 1:54 AM CDT documented in this encounter Plan of Treatment Not on filedocumented as of this encounter Procedures Procedure Name Priority Date/Time Associated Comments Diagnosis PROTHROMBIN TIME Routine 08/21/2014 8:07 AM Resul ts for this (PT), P FINANCE INSURANCE MANAGER procedure are i n the results section. documented in this encounter Results (ABNORMAL) PT (Prothrombin Time) with INR (08/21/2014 8:07 AM FINANCE INSURANCE MANAGER) [facility] Method Time Signature Prothrombin 32.4 (H) 8.7 - 11.8 POWERCHART Time, P [...] Time Location / / Volume Laterality Blood 08/21/2014 8:07 AM FINANCE INSURANCE MANAGER Sridhar Garibay M.D. LAB BLOOD ADD-ON Performing Organization Address City/State/ZIP Code Phon e Number POWERCHART documented in this encounter Visit Diagnoses Not on filedocumented in this encounter
--- OUTSIDE RECORDS SUMMARY | 2022-04-25 16:03 | XMS_ITS | Encounter Summary ---
:1975 Author Organization [facility] Address [address] [place] [address] Care Team Providers Name Role Phone Unavailable Primary Care Provider Unavailable Encounter Details Date Type Department Care Team Description 10/02/2014 Hospital Encounter HX [facility] Marsha Henriquez M.D. [address] [place], [place] [address] (Wo rk) Social History [...] - - Height 157 cm (5' 1.81) 10/02/2014 7:01 AM CDT Body Mass Index - - documented in this encounter Medications at Time of Discharge Medication Sig Dispensed Refills Start Date End Date multivitamin tablet Take 2 tablets by 0 3 mouth daily. FLUORIDE, SODIUM, Apply 1 application 0 3 12/31/2019 DENTAL topically 2 (two) times a day. documented as of this encounter Miscellaneous Notes Miscellaneous - Wali Mcclellan - 10/02/2014 11:55 AM CDT Anticoagulation Patient Intake Document Has Been Updated Anticoagulation Patient Intake Entered On: 10/02/2014 11:57 CDT Performed On: 10/02/2014 11:55 CDT by WALI MCCLELLAN RN Plan INR goal range : 2.0 - 3.0 Duration of Therapy : Lifelong Tablet Size : 5 mg WALI MCCLELLAN RN - 10/02/2014 11:55 CDT WALI MCCLELLAN RN - 10/02/2014 11:55 CDT Anticoagulation Management Plan Grid Date : [...] darya BURGESS JM WALI Ervin RN - 10/02/2014 11:55 CDT WALI MCCLELLAN RN - 10/02/2014 11:55 CDT WALI MCCLELLAN RN - 10/02/2014 11:55 CDT WALI MCCLELLAN RN - 10/02/2014 11:55 CDT Date : 12/26/2013 CDT 01/30/2014 CDT [...] completed by : WALI Davidson RN - 10/02/2014 11:55 CDT WALI MCCLELLAN RN - 10/02/2014 11:55 CDT WALI MCCLELLAN RN - 10/02/2014 11:55 CDT WALI MCCLELLAN RN - 10/02/2014 11:55 CDT Date : 03/20/2014 CDT 03/27/2014 CDT [...] by : darya lackey [facility]/pharmacy WALI MCCLELLAN RN - 10/02/2014 11:55 CDT WALI MCCLELLAN RN - 10/02/2014 11:55 CDT WALI MCCLELLAN RN - 10/02/2014 11:55 CDT WALI MCCLELLAN RN - 10/02/2014 11:55 CDT Date : 04/17/2014 CDT 04/24/2014 CDT 05/01/2014 QUANTITATIVE MANAGER 05/15/2014 QUANTITATIVE MANAGER Location of INR sample : Lab [...] will trynoted dose called to mom Fabiola [phone] called to Fabiola/no changes Called to mother/Fabiola, not awareof any changes Recommend Recheck : One week One week Two weeks Two weeks Plan completed by : MARIA GUADALUPE FITCH OZZY WALI ESPINOSA RN - 10/02/2014 11:55 CDT WALI MCCLELLAN RN - 10/02/2014 11:55 CDT WALI MCCLELLAN RN - 10/02/2014 11:55 CDT WALI MCCLELLAN RN - 10/02/2014 11:55 CDT Date : 06/03/2014 QUANTITATIVE MANAGER 06/05/2014 QUANTITATIVE MANAGER 06/10/2014 QUANTITATIVE MANAGER 06/11/2014 QUANTITATIVE MANAGER Location of INR sample : Lab [...] Fabiola granados. Hue will be staying in [place] 2wks post-surgery & have INR drawn there. She will resume normal dosing after surgery. Preop today w/arazna Mckeon 06/11, to bridge w/Lovenox post surg, will restart Coumadin 06/11 andstart Lovenox 06/12(80mg 2x/d), to get INR 06/13, we are to call mother/Fabiola 06/11 to discuss Lovenox & set up INR Same day surgery nurse called. Given instructions for coumadin dosing. They will start lovenox tomorrow AM as ordered. INR in [place] for next several weeks as pt will be recovering there. Recommend Recheck : Other: depending on Dr. Henriquez's preop. Other: 06/18 Other: 06/13/14 Plan completed by : WALI TYLER RN - 10/02/2014 11:55 CDT WALI MCCLELLAN RN - 10/02/2014 11:55 CDT WALI MCCLELLAN RN - 10/02/2014 11:55 CDT WALI MCCLELLAN RN - 10/02/2014 11:55 CDT Date : 06/14/2014 QUANTITATIVE MANAGER 06/14/2014 QUANTITATIVE MANAGER 06/16/2014 QUANTITATIVE MANAGER 06/23/2014 QUANTITATIVE MANAGER Location of INR sample : Clinic [...] Warfarin Dose : 20 20 Comment : [place] lab called with INR result from 06/13, reported they left a message with Dr. Henriquez and hadn't heard back, spoke with mother, Fabiola, and gave doses, continue Lovenox and repeat INR 06/16, message left with INR clinic in to contact CF Please contact [place] lab on 06/16 for result and may call Fabiola at [phone] with instructions call to Fabiola/will stop Lovenox injections and take noted dose/pt has an appt here in 06/23 so will do lab appt here that day Called to Fabiola/ Hue will be back at [facility] next draw. will have done on . no changes to meds/diet. Recommend Recheck : Two days One week Two weeks Plan completed by : WALI Steven LM, RN - 10/02/2014 11:55 CDT WALI MCCLELLAN RN - 10/02/2014 11:55 CDT WALI MCCLELLAN RN - 10/02/2014 11:55 CDT WALI MCCLELLAN RN - 10/02/2014 11:55 CDT Date : 07/10/2014 QUANTITATIVE MANAGER 07/17/2014 QUANTITATIVE MANAGER 07/31/2014 QUANTITATIVE MANAGER 09/11/2014 CDT Location of INR sample [...] completed by : WALI Yarbrough RN - 10/02/2014 11:55 CDT WALI MCCLELLAN RN - 10/02/2014 11:55 CDT WALI MCCLELLAN RN - 10/02/2014 11:55 CDT WALI MCCLELLAN RN - 10/02/2014 11:55 CDT Date : 09/12/2014 CDT 09/25/2014 CDT 10/02/2014 CDT WALI MCCLELLAN RN - 10/02/2014 11:55 CDT Location of INR sample : Lab Lab WALI MCCLELLAN RN - 10/02/2014 11:55 CDT Type of Sample : Venous Venous WALI MCCLELLAN RN - 10/02/2014 11:55 CDT INR Result : 1.7 1.9 WALI MCCLELLAN RN - 10/02/2014 11:55 CDT Warfarin Dose : 5mg Mon/Thurs, 2.5mg all other days 5mg Tues, Thurs & Sat, 2.5mg all other days Total Weekly Warfarin Dose : 22.5 25 Comment : Per mom, pt on Zpak last wk, no other changes, best to call mom on cell phone # per Mom/nochanges or missed doses Called to Mom/Fabiola, no changes, rev'd w/[facility]/Pharmacy WALI MCCLELLAN RN - 10/02/2014 15:27 CDT Recommend Recheck : Two weeks One week One week Plan completed by : WALI Wright RN - 10/02/2014 11:55 CDT WALI MCCLELLAN RN - 10/02/2014 11:55 CDT WALI MCCLELLAN RN - 10/02/2014 11:55 CDT WALI MCCLELLAN RN - 10/02/2014 15:21 CDT Anticoagulation Assessment / History Visit : Phone management Plan of Care Date : 01/29/2008 CDT Primary Physician Anticoagulation : TASHA HENRIQUEZ MD 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 : DVT Lower, Other: Deep Phlebitis-Leg NEC CHADS2 Score Date : 09/05/2013 CDT WALI MCCLELLAN RN - 10/02/2014 11:55 CDT Changes / Problems Changes/Problems Since Last Visit : None Been Scheduled For : None Missed Coumadin Doses : None Change In Intake : None Change In Medication : None Have You Had : None Plans to Travel : No WALI MCCLELLAN RN - 10/02/2014 15:21 CDT Source: [facility] Simplesurance Document Id: [id number] CDT!5 Miscellaneous - Wali Mcclellan - 10/02/2014 10:09 AM CDT Results Notification Document Contains Addenda Addendum by WALI MCCLELLAN RN on 02 October 2014 15:28:22 CDT Orders called to Mom/Fabiola. Addendum by WALI MCCLELLAN RN on 02 October 2014 11:57:46 CDT Will consult with Pharmacy. From: WALI MCCLELLAN RN ( Anticoagulation Nurse) To: Anticoagulation Nurse; Sent: 10/02/2014 10:09:37 CDT Show up: 10/02/2014 10:10:00 CDT Subject: Results Notification Results: Date Result Name Value Ref Range 10/02/2014 08:01 PT 20.8 second(s) (8.7 - 11.8) 10/02/2014 08:01 INR 1.9 INR (0.9 - 1.1) Source: [facility] POWERCHART Document Id: [id number] Electronically signed by Conversion, [facility] Java Developer Consultant [id number] at 11/20/2016 3:35 PM CDT documented in this encounter Plan of Treatment Not on filedocumented as of this encounter Procedures Procedure Name Priority Date/Time Associated Comments Diagnosis PROTHROMBIN TIME Routine 10/02/2014 8:01 AM Resul ts for this (PT), P CDT procedure are i n the results section. documented in this encounter Results (ABNORMAL) PT (Prothrombin Time) with INR (10/02/2014 8:01 AM CDT) [facility] Method Time Signature Prothrombin 20.8 (H) 8.7 - 11.8 POWERCHART Time, P [...] Time Location / / Volume Laterality Blood 10/02/2014 8:01 AM CDT Tasha Henriquez M.D. LAB BLOOD ADD-ON Performing Organization Address City/State/ZIP Code Phon e Number POWERCHART documented in this encounter Visit Diagnoses Not on filedocumented in this encounter
--- OUTSIDE RECORDS SUMMARY | 2022-04-25 16:03 | XMS_ITS | Encounter Summary ---
:1975 Author Organization [facility] Address [address] [place] [address] Care Team Providers Name Role Phone Unavailable Primary Care Provider Unavailable Encounter Details Date Type Department Care Team Description 03/27/2014 Hospital Encounter HX [facility] Marsha Henriquez M.D. [address] [place], [place] [address] (Wo rk) Social History [...] this encounter Miscellaneous Notes Miscellaneous - Khadar Medina, RMichaelN. - 03/27/2014 1:41 PM CDT Anticoagulation Patient Intake Anticoagulation Patient Intake Entered On: 03/27/2014 13:46 CDT Performed On: 03/27/2014 13:41 CDT by KHADAR MEDINA RN Plan INR goal range : 2.0 - 3.0 Duration of Therapy : Lifelong Tablet Size : 5 mg KHADAR MEDINA RN - 03/27/2014 13:41 CDT Anticoagulation Management Plan Grid Date : [...] completed by : KHADAR Manning RN - 03/27/2014 13:41 CDT KHADAR MEDINA RN - 03/27/2014 13:41 CDT KHADAR MEDINA RN - 03/27/2014 13:41 CDT KHADAR MEDINA RN - 03/27/2014 13:41 CDT Date : 12/26/2013 CDT 01/30/2014 CDT [...] completed by : KHADAR Cho RN - 03/27/2014 13:41 CDT KHADAR MEDINA RN - 03/27/2014 13:41 CDT KHADAR MEDINA RN - 03/27/2014 13:41 CDT KHADAR MEDINA RN - 03/27/2014 13:41 CDT Date : 03/20/2014 CDT 03/27/2014 CDT Location of INR sample : Lab Lab Type of Sample : Venous Venous INR Result : 3.8 3.2 Warfarin Dose : HOLD 03/20, then 5mg Mon/Mon, 2.5mg all other days 5mg Mon/Mon, 2.5mg all other days Total Weekly Warfarin Dose : 22.5 Comment : called to Mom, she is going to check with [employer] to see if she is drinking Cranberry Splash Sprite called to Mom, no changes,not drinking Cranberry Splash, try dec as noted Recommend Recheck : One week Two weeks Plan completed by : KHADAR Goins RN - 03/27/2014 13:41 CDT KHADAR MEDINA RN - 03/27/2014 13:41 CDT Anticoagulation Assessment / History Visit : Phone management Plan of Care Date : 01/29/2008 CDT Primary Physician Anticoagulation : TASHA HENRIQUEZ MD 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 - 03/27/2014 10:40 AM CDT Results Notification From: KHADAR MEDINA RN ( Anticoagulation Nurse) To: Anticoagulation Nurse; Sent: 03/27/2014 10:40:42 CDT Show up: 03/27/2014 10:41:00 CDT Subject: Results Notification Results: Date Result Name Value Ref Range 03/27/2014 07:53 PT 36.3 second(s) (8.7 - 11.8) 03/27/2014 07:53 INR 3.2 INR (0.9 - 1.1) Source: [facility] POWERCHART Document Id: [id number] Electronically signed by Conversion, [facility] Digital Business Analyst [id number] at 11/22/2016 4:47 AM CDT documented in this encounter Plan of Treatment Not on filedocumented as of this encounter Procedures Procedure Name Priority Date/Time Associated Comments Diagnosis PROTHROMBIN TIME Routine 03/27/2014 7:53 AM Resul ts for this (PT), P CDT procedure are i n the results section. documented in this encounter Results (ABNORMAL) PT (Prothrombin Time) with INR (03/27/2014 7:53 AM CDT) [facility] Method Time Signature Prothrombin 36.3 (H) 8.7 - 11.8 POWERCHART Time, P SECONDS INR 3.2 (H) 0.9 - 1.1 POWERCHART INR Comment: Recommended INR for prophylaxis/treatmen t of Venous Thrombosis, Pulmonary Embolism, Myocardial Infarction, and Embolism from Atrial Fibrillation is 2.0- 3.0 (Standard Therapy) Recommended INR for Mechanical Heart Tejal ves and recurrent Systemic Embolism is 2.5-3.5 (Intensive Therapy) Specimen (Source) Anatomical Collection Method Collection Time Re ceived Time Location / / Volume Laterality Blood 03/27/2014 7:53 AM CDT Tasha Henriquez M.D. LAB BLOOD ADD-ON Performing Organization Address City/State/ZIP Code Phon e Number POWERCHART documented in this encounter Visit Diagnoses Not on filedocumented in this encounter
--- OUTSIDE RECORDS SUMMARY | 2022-04-25 16:03 | XMS_ITS | Encounter Summary ---
:1975 Author Organization [facility] Address [address] [place] [address] Care Team Providers Name Role Phone Unavailable Primary Care Provider Unavailable Encounter Details Date Type Department Care Team Description 05/01/2014 Hospital Encounter HX [facility] Marsha Henriquez M.D. [address] [place], [place] [address] (Wo rk) Social History [...] of this encounter Miscellaneous Notes Miscellaneous - Ermelinda Casas, RMichaelNMichael - 05/01/2014 12:30 PM CST Anticoagulation Patient Intake Anticoagulation Patient Intake Entered On: 05/01/2014 12:31 REHAB AIDE Performed On: 05/01/2014 12:30 REHAB AIDE by ERMELINDA CASAS RN Plan INR goal range : 2.0 - 3.0 Duration of Therapy : Lifelong Tablet Size : 5 mg ERMELINDA CASAS RN - 05/01/2014 12:30 REHAB AIDE Anticoagulation Management Plan Grid Date : [...] weeks Two weeks Plan completed by : ERMELINDA Ann RN - 05/01/2014 12:30 REHAB AIDE ERMELINDA CASAS RN - 05/01/2014 12:30 REHAB AIDE ERMELINDA CASAS RN - 05/01/2014 12:30 REHAB AIDE ERMELINDA CASAS RN - 05/01/2014 12:30 REHAB AIDE Date : 12/26/2013 CDT 01/30/2014 CDT [...] 03/10/2014 Other: 03/20/14 Plan completed by : ERMELINDA Eubanks RN - 05/01/2014 12:30 REHAB AIDE ERMELINDA CASAS RN - 05/01/2014 12:30 REHAB AIDE ERMELINDA CASAS RN - 05/01/2014 12:30 REHAB AIDE ERMELINDA CASAS RN - 05/01/2014 12:30 REHAB AIDE Date : 03/20/2014 CDT 03/27/2014 CDT [...] completed by : darya lackey LM /pharmacy ERMELINDA CASAS RN - 05/01/2014 12:30 REHAB AIDE ERMELINDA CASAS RN - 05/01/2014 12:30 REHAB AIDE ERMELINDA CASAS RN - 05/01/2014 12:30 REHAB AIDE ERMELINDA CASAS RN - 05/01/2014 12:30 REHAB AIDE Date : 04/17/2014 CDT 04/24/2014 CDT 05/01/2014 REHAB AIDE Location of INR sample : Lab Lab Lab Type of Sample : Venous Venous Venous INR Result : 2.2 3.0 2.4 Warfarin Dose : 5mg Mon, 2.5mg all other days 5mg MON with 2.5mg all other days - eat a salad today 5mg Mon and 2.5mg all other days Total Weekly Warfarin Dose : 20 20 20 Comment : Called to mom/Fabiola, no changes, mom wondering if when splitting the pills not cut exactlyin half so may have gotten extra some days, mom looked at pills & recut them if needed, will trynoted dose called to mom Fabiola [phone] called to Fabiola/no changes Recommend Recheck : One week One week Two weeks Plan completed by : ERMELINDA KUHN RN - 05/01/2014 12:30 REHAB AIDE ERMELINDA CASAS RN - 05/01/2014 12:30 REHAB AIDE ERMELINDA CASAS RN - 05/01/2014 12:30 REHAB AIDE Anticoagulation Assessment / History Visit : Phone management Plan of Care Date : 01/29/2008 CDT Primary Physician Anticoagulation : TASHA HENRIUQEZ MD 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 - 05/01/2014 10:48 AM CST Results Notification Document Contains Addenda Addendum by ERMELINDA CASAS RN on 01 May 2014 12:08:42 REHAB AIDE result and orders called to pt From: KHADAR MEDINA RN ( Anticoagulation Nurse) To: Anticoagulation Nurse; Sent: 05/01/2014 10:48:16 REHAB AIDE Show up: 05/01/2014 10:49:00 REHAB AIDE Subject: Results Notification Results: Date Result Name Value Ref Range 05/01/2014 08:05 PT 27.3 second(s) 05/01/2014 08:05 INR 2.4 INR (0.8 - 1.1) Source: [facility] Metranome Document Id: [id number] documented in this encounter Plan of Treatment Not on filedocumented as of this encounter Procedures Procedure Name Priority Date/Time Associated Comments Diagnosis PROTHROMBIN TIME Routine 05/01/2014 8:05 AM Resul ts for this (PT), P REHAB AIDE procedure are i n the results section. documented in this encounter Results (ABNORMAL) PT (Prothrombin Time) with INR (05/01/2014 8:05 AM REHAB AIDE) [facility] gist Method Time Signature Prothrombin 27.3 SECONDS POWERCHART Time, P INR 2.4 (H) [...] Time Location / / Volume Laterality Blood 05/01/2014 8:05 AM REHAB AIDE Tasha Henriquez M.D. LAB BLOOD ADD-ON Performing Organization Address City/State/ZIP Code Phon e Number POWERCHART documented in this encounter Visit Diagnoses Not on filedocumented in this encounter
--- OUTSIDE RECORDS SUMMARY | 2022-04-25 16:03 | XMS_ITS | Encounter Summary ---
:1975 Author Organization [facility] Address [address] [place] [address] Care Team Providers Name Role Phone Unavailable Primary Care Provider Unavailable Encounter Details Date Type Department Care Team Description 04/12/2014 Hospital Encounter [facility] Marsha Garibay M.D. [address] [place], [place] [address] (Wo rk) Social History [...] Notes Miscellaneous - Sudha Holley R.N. - 04/14/2014 8:03 AM CDT Results Notification Document Contains Addenda Addendum by SUDHA ARCOS RN on 14 April 2014 08:10:41 CDT result from weekend, called mother reviewed plan. From: SUDHA ARCOS RN ( Anticoagulation Nurse) To: Anticoagulation Nurse; Sent: 04/14/2014 08:03:45 CDT Show up: 04/14/2014 08:04:00 CDT Subject: Results Notification Results: Date Result Name Value Ref Range 04/12/2014 09:29 PT 32.3 second(s) (8.7 - 11.8) 04/12/2014 09:29 INR 2.9 INR (0.9 - 1.1) Source: [facility] POWERCHART Document Id: [id number] Miscellaneous - Janie Adler R.Ph. - 04/12/2014 9:59 AM CDT Anticoagulation Patient Intake Anticoagulation Patient Intake Entered On: 04/12/2014 10:13 CDT Performed On: 04/12/2014 9:59 CDT by JANIE ADLER Plan INR goal range : 2.0 - 3.0 Duration of Therapy : Lifelong Tablet Size : 5 mg JANIE ADLER - 04/12/2014 9:59 CDT Anticoagulation Management Plan Grid Date : [...] Plan completed by : darya BURGESS JM JANIE Siegel - 04/12/2014 9:59 CDT JANIE ADLER - 04/12/2014 9:59 CDT JANIE ADLER - 04/12/2014 9:59 CDT JANIE ADLER - 04/12/2014 9:59 CDT Date : 12/26/2013 CDT 01/30/2014 CDT [...] 03/10/2014 Other: 03/20/14 Plan completed by : JANIE Ramos - 04/12/2014 9:59 CDT JANIE ADLER - 04/12/2014 9:59 CDT JANIE ADLER - 04/12/2014 9:59 CDT JANIE ADLER - 04/12/2014 9:59 CDT Date : 03/20/2014 CDT 03/27/2014 CDT [...] Two weeks Two days One day, Other: (Comment: or Monday [JANIE ADLER - 04/12/2014 9:59 CDT] ) Plan completed by : darya lackey LM /pharmacy JANIE ADLER - 04/12/2014 9:59 CDT JANIE ADLER - 04/12/2014 9:59 CDT JANIE ADLER - 04/12/2014 9:59 CDT JANIE ADLER - 04/12/2014 9:59 CDT Source: [facility] POWERCHART Document Id: [id number] CDT!121 documented in this encounter Plan of Treatment Not on filedocumented as of this encounter Procedures Procedure Name Priority Date/Time Associated Comments Diagnosis PROTHROMBIN TIME Routine 04/12/2014 9:29 AM Resul ts for this (PT), P CDT procedure are i n the results section. documented in this encounter Results (ABNORMAL) PT (Prothrombin Time) with INR (04/12/2014 9:29 AM CDT) [facility] gist Method Time Signature Prothrombin 32.3 (H) 8.7 - 11.8 POWERCHART Time, P SECONDS INR 2.9 (H) 0.9 - 1.1 POWERCHART INR Comment: Verified by repeat analysis. 09:54:01 CDT SH Specimen (Source) Anatomical Collection Method Collection Time Re ceived Time Location / / Volume Laterality Blood 04/12/2014 9:29 AM CDT Sridhar Garibay M.D. LAB BLOOD ADD-ON Performing Organization Address City/State/ZIP Code Phon e Number POWERCHART documented in this encounter Visit Diagnoses Not on filedocumented in this encounter
--- OUTSIDE RECORDS SUMMARY | 2022-04-25 16:03 | XMS_ITS | Encounter Summary ---
:1975 Author Organization [facility] Address [address] [place] [address] Care Team Providers Name Role Phone Unavailable Primary Care Provider Unavailable Encounter Details Date Type Department Care Team Description 04/17/[address] [facility] Marsha Henriquez M.D. [...] this encounter Miscellaneous Notes Miscellaneous - Wali Brito - 04/17/2014 10:45 AM CDT Anticoagulation Patient Intake Anticoagulation Patient Intake Entered On: 04/17/2014 10:52 CDT Performed On: 04/17/2014 10:45 CDT by WALI BRITO RN Plan INR goal range : 2.0 - 3.0 Duration of Therapy : Lifelong Tablet Size : 5 mg WALI BRITO RN - 04/17/2014 10:45 CDT Anticoagulation Management Plan Grid Date : [...] completed by : WALI Tracy RN - 04/17/2014 10:45 CDT WALI BRITO RN - 04/17/2014 10:45 CDT WALI BRITO RN - 04/17/2014 10:45 CDT WALI BRITO RN - 04/17/2014 10:45 CDT Date : 12/26/2013 CDT 01/30/2014 CDT [...] completed by : WALI Davidson RN - 04/17/2014 10:45 CDT WALI BRITO RN - 04/17/2014 10:45 PATRICIAT WALI BRITO RN - 04/17/2014 10:45 CDT WALI BRITO RN - 04/17/2014 10:45 CDT Date : 03/20/2014 CDT 03/27/2014 CDT [...] by : darya lackey LM /pharmacy WALI BRITO RN - 04/17/2014 10:45 CDT WALI BRITO RN - 04/17/2014 10:45 CDT WALI BRITO RN - 04/17/2014 10:45 CDT WALI BRITO RN - 04/17/2014 10:45 CDT Date : 04/17/2014 CDT Location of [...] : One week Plan completed by : WALI ESPINOSA RN - 04/17/2014 10:45 CDT Anticoagulation Assessment / History Visit : Phone management Plan of Care Date : 01/29/2008 CDT Primary Physician Anticoagulation : TASHA HENRIQUEZ MD 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 : DVT Lower, Other: Deep Phlebitis-Leg NEC CHADS2 Score Date : 09/05/2013 CDT WALI BRITO RN - 04/17/2014 10:45 CDT Changes / Problems Changes/Problems Since Last Visit : None Been Scheduled For : None Missed Coumadin Doses : None Change In Intake : None Change In Medication : None Have You Had : None Plans to Travel : No WALI BRITO RN - 04/17/2014 10:45 CDT Source: [facility] [employer] Book Document Id: [id number] CDT!146 Miscellaneous - Wali Brito - 04/17/2014 10:19 AM CDT Results Notification Document Contains Addenda Addendum by WALI BRITO RN on 17 April 2014 10:55:22 CDT Orders called to mom/Fabiola. From: WALI BRITO RN ( Anticoagulation Nurse) To: Anticoagulation Nurse; Sent: 04/17/2014 10:19:10 CDT Show up: 04/17/2014 10:20:00 CDT Subject: Results Notification Results: Date Result Name Value Ref Range 04/17/2014 08:04 PT 24.7 second(s) 04/17/2014 08:04 INR 2.2 INR (0.8 - 1.1) Source: [facility] [employer] Book Document Id: [id number] documented in this encounter Plan of Treatment Not on filedocumented as of this encounter Procedures Procedure Name Priority Date/Time Associated Comments Diagnosis PROTHROMBIN TIME Routine 04/17/2014 8:04 AM Resul ts for this (PT), P CDT procedure are i n the results section. documented in this encounter Results (ABNORMAL) PT (Prothrombin Time) with INR (04/17/2014 8:04 AM CDT) Patholo gist Method Time Signature Prothrombin 24.7 SECONDS POWERCHART Time, P INR 2.2 (H) 0.8 - 1.1 POWERCHART INR Comment: Recommended INR for prophylaxis/treatmen t of Venous Thrombosis, Pulmonary Embolism, Myocardial Infarction, and Embolism from Atrial Fibrillation is 2.0- 3.0 (Standard Therapy) Recommended INR for Mechanical Heart Tejal ves and recurrent Systemic Embolism is 2.5-3.5 (Intensive Therapy) Specimen (Source) Anatomical Collection Method Collection Time Re ceived Time Location / / Volume Laterality Blood 04/17/2014 8:04 AM CDT Tasha Henriquez M.D. LAB BLOOD ADD-ON Performing Organization Address City/State/ZIP Code Phon e Number POWERCHART documented in this encounter Visit Diagnoses Not on filedocumented in this encounter
--- OUTSIDE RECORDS SUMMARY | 2022-04-25 16:03 | XMS_ITS | Encounter Summary ---
:1975 Author Organization [facility] Address [address] [place] [id number] Care Team Providers Name Role Phone Unavailable Primary Care Provider Unavailable Encounter Details Date Type Department Care Team Description 06/13/2014 Hospital Encounter HX [facility] Marsha Garibay M.D. [address] [place], [place] [address] (Wo rk) Social History [...] - - Height 157 cm (5' 1.81) 06/13/2014 8:37 AM INSPECTOR FIBROUS WALLBOARD Body Mass Index - - documented in this encounter Medications at Time of Discharge Medication Sig Dispensed Refills Start Date End Date multivitamin tablet Take 2 tablets by 0 3 mouth daily. FLUORIDE, SODIUM, Apply 1 application 0 3 12/31/2019 DENTAL topically 2 (two) times a day. documented as of this encounter Miscellaneous Notes Miscellaneous - Deann Odell, GilmaPh. - 06/14/2014 9:17 AM CST Anticoagulation Patient Intake Anticoagulation Patient Intake Entered On: 06/14/2014 9:19 INSPECTOR FIBROUS WALLBOARD Performed On: 06/14/2014 9:17 INSPECTOR FIBROUS WALLBOARD by DEANN ODELL Niranjan Plan INR goal range : 2.0 - 3.0 Duration of Therapy : Lifelong Tablet Size : 5 mg DEANN ODELL [facility] - 06/14/2014 9:17 INSPECTOR FIBROUS WALLBOARD Anticoagulation Management Plan Grid Date : 09/05/2013 [...] weeks Plan completed by : darya BURGESS DEANN Schaeffer [facility] - 06/14/2014 9:17 INSPECTOR FIBROUS WALLBOARD DEANN ODELL [facility] - 06/14/2014 9:17 INSPECTOR FIBROUS WALLBOARD DEANN ODELL [facility] - 06/14/2014 9:17 INSPECTOR FIBROUS WALLBOARD DEANN ODELL [facility] - 06/14/2014 9:17 INSPECTOR FIBROUS WALLBOARD Date : 12/26/2013 CDT 01/30/2014 CDT 03/06/2014 [...] 03/20/14 Plan completed by : PATRICE lackey DEANN ODELL R [facility] - 06/14/2014 9:17 INSPECTOR FIBROUS WALLBOARD DEANN ODELL R [facility] - 06/14/2014 9:17 INSPECTOR FIBROUS WALLBOARD CASSDEANN R [facility] - 06/14/2014 9:17 INSPECTOR FIBROUS WALLBOARD CASSDEANN R [facility] - 06/14/2014 9:17 INSPECTOR FIBROUS WALLBOARD Date : 03/20/2014 CDT 03/27/2014 CDT 04/10/2014 [...] as noted Called to mom, almaz to [facility] has been drinking grape juice. no bleeding. no vitamin K per Dr. Duarte. dose consultwith Agatha Hopkins/Pharmacy. instructed to be seen if bleeding occurs. called mom, Recommend Recheck : One week Two weeks Two days One day, Other: Plan completed by : darya lackey [facility]/pharmacy CASSDEANN R [facility] - 06/14/2014 9:17 INSPECTOR FIBROUS WALLBOARD CASSDEANN R [facility] - 06/14/2014 9:17 [facility] CASSDEANN R [facility] - 06/14/2014 9:17 INSPECTOR FIBROUS WALLBOARD CASSRONAKI R [facility] - 06/14/2014 9:17 INSPECTOR FIBROUS WALLBOARD Date : 04/17/2014 CDT 04/24/2014 CDT 05/01/2014 INSPECTOR FIBROUS WALLBOARD 05/15/2014 INSPECTOR FIBROUS WALLBOARD Location of INR sample : Lab Lab [...] will trynoted dose called to mom Fabiola [phone] called to Fabiola/no changes Called to mother/Fabiola, not awareof any changes Recommend Recheck : One week One week Two weeks Two weeks Plan completed by : MARIA GUADALUPE PRECIADO DEANN ODELL [facility] - 06/14/2014 9:17 [facility] DEANN ODELL [facility] - 06/14/2014 9:17 INSPECTOR FIBROUS WALLBOARD DEANN ODELL [facility] - 06/14/2014 9:17 INSPECTOR FIBROUS WALLBOARD DEANN ODELL [facility] - 06/14/2014 9:17 INSPECTOR FIBROUS WALLBOARD Date : 06/03/2014 INSPECTOR FIBROUS WALLBOARD 06/05/2014 INSPECTOR FIBROUS WALLBOARD 06/10/2014 INSPECTOR FIBROUS WALLBOARD 06/11/2014 INSPECTOR FIBROUS WALLBOARD Location of INR sample : Lab Type [...] Called motherFabiola. Hue will be staying in [place] 2wks post-surgery & have INR drawn there. [...] 06/18 Other: 06/13/14 Plan completed by : DEANN MCINTOSH [facility] - 06/14/2014 9:17 INSPECTOR FIBROUS WALLBOARD DEANN ODELL [facility] - 06/14/2014 9:17 DEANN ALBERTO [facility] - 06/14/2014 9:17 DEANN ALBERTO [facility] - 06/14/2014 9:17 INSPECTOR FIBROUS WALLBOARD Date : 06/14/2014 INSPECTOR FIBROUS WALLBOARD 06/14/2014 INSPECTOR FIBROUS WALLBOARD Location of INR sample : Clinic Type of Sample : INR Result : 1.3 on 06/13 Warfarin Dose : (pt took 2.5mg 06/13) 5mg Sat and 5mg Sun (06/14 and 06/15) Total Weekly Warfarin Dose : Comment : [place] lab called with INR result from 06/13, reported they left a message with Dr. Garibay and hadn't heard back, spoke with mother, Fabiola, and gave doses, continue Lovenox and repeat INR 06/16, message left with INR clinic in [place] to contact CF Please contact [place] lab on 06/16 for result and may call Fabiola at [phone] with instructions Recommend Recheck : Two days Plan completed by : DEANN Lemus [facility] - 06/14/2014 9:17 INSPECTOR FIBROUS WALLBOARD DEANN ODELL [facility] - 06/14/2014 9:17 INSPECTOR FIBROUS WALLBOARD Source: [facility] POWERCHART Document Id: [id number] INSPECTOR FIBROUS WALLBOARD!199 ECTOR FIBROUS WALLBOARD Miscellaneous - Deann Odell, R.Ph. - 06/14/2014 9:09 AM CST Anticoagulation Patient Intake Anticoagulation Patient Intake Entered On: 06/14/2014 9:15 INSPECTOR FIBROUS WALLBOARD Performed On: 06/14/2014 9:09 INSPECTOR FIBROUS WALLBOARD by DEANN ODELL [facility] Plan INR goal range : 2.0 - 3.0 Duration of Therapy : Lifelong Tablet Size : 5 mg DEANN ODELL [facility] - 06/14/2014 9:09 INSPECTOR FIBROUS WALLBOARD Anticoagulation Management Plan Grid Date : 09/05/2013 [...] Plan completed by : darya BURGESS JM DEANN Schaeffer [facility] - 06/14/2014 9:09 INSPECTOR FIBROUS WALLBOARD DEANN ODELL [facility] - 06/14/2014 9:09 INSPECTOR FIBROUS WALLBOARD DEANN ODELL [facility] - 06/14/2014 9:09 INSPECTOR FIBROUS WALLBOARD DEANN ODELL [facility] - 06/14/2014 9:09 INSPECTOR FIBROUS WALLBOARD Date : 12/26/2013 CDT 01/30/2014 CDT 03/06/2014 [...] 03/20/14 Plan completed by : PATRICE lackey CASS, DEANN R [facility] - 06/14/2014 9:09 INSPECTOR FIBROUS WALLBOARD CASS, DEANN R [facility] - 06/14/2014 9:09 INSPECTOR FIBROUS WALLBOARD CASS, DEANN R [facility] - 06/14/2014 9:09 INSPECTOR FIBROUS WALLBOARD CASS, DEANN R [facility] - 06/14/2014 9:09 INSPECTOR FIBROUS WALLBOARD Date : 03/20/2014 CDT 03/27/2014 CDT 04/10/2014 [...] Other: Plan completed by : darya lackey [facility]/pharmacy DEANN ODELL R [facility] - 06/14/2014 9:09 INSPECTOR FIBROUS WALLBOARD CASS, DEANN R [facility] - 06/14/2014 9:09 INSPECTOR FIBROUS WALLBOARD CASS, DEANN R [facility] - 06/14/2014 9:09 INSPECTOR FIBROUS WALLBOARD CASS, DEANN R [facility] - 06/14/2014 9:09 INSPECTOR FIBROUS WALLBOARD Date : 04/17/2014 CDT 04/24/2014 CDT 05/01/2014 INSPECTOR FIBROUS WALLBOARD 05/15/2014 INSPECTOR FIBROUS WALLBOARD Location of INR sample : Lab Lab [...] will trynoted dose called to mom Fabiola [phone] called to Fabiola/no changes Called to mother/Fabiola, not awareof any changes Recommend Recheck : One week One week Two weeks Two weeks Plan completed by : MARIA GUADALUPE PRECIADO DEANN ODELL [facility] - 06/14/2014 9:09 [facility] DEANN ODELL [facility] - 06/14/2014 9:09 [facility] DEANN ODELL [facility] - 06/14/2014 9:09 [facility] DEANN ODELL [facility] - 06/14/2014 9:09 INSPECTOR FIBROUS WALLBOARD Date : 06/03/2014 INSPECTOR FIBROUS WALLBOARD 06/05/2014 INSPECTOR FIBROUS WALLBOARD 06/10/2014 INSPECTOR FIBROUS WALLBOARD 06/11/2014 INSPECTOR FIBROUS WALLBOARD Location of INR sample : Lab Type [...] Called motherFabiola. Hue will be staying in [place] 2wks post-surgery & have INR drawn there. [...] 06/18 Other: 06/13/14 Plan completed by : DEANN MCINTOSH [facility] - 06/14/2014 9:09 INSPECTOR FIBROUS WALLBOARD DEANN ODELL [facility] - 06/14/2014 9:09 INSPECTOR FIBROUS WALLBOARD DEANN ODELL [facility] - 06/14/2014 9:09 INSPECTOR FIBROUS WALLBOARD DEANN ODELL [facility] - 06/14/2014 9:09 INSPECTOR FIBROUS WALLBOARD Date : 06/14/2014 INSPECTOR FIBROUS WALLBOARD Location of INR sample : Clinic Type of Sample : INR Result : 1.3 on 06/13 Warfarin Dose : (pt took 2.5mg 06/13) 5mg Sat and 5mg Sun (06/14 and 06/15) Total Weekly Warfarin Dose : Comment : [facility] called with INR result from 06/13, reported they left a message with Dr. Garibay and hadn't heard back, spoke with mother, Fabiola, and gave doses, continue Lovenox and repeat INR 06/16, message left with INR clinic in [place] to contact CF (Comment: please call Fabiola's cell phone with result and plan, [DEANN ODELL [facility] - 06/14/2014 9:09 INSPECTOR FIBROUS WALLBOARD] ) Recommend Recheck : Two days Plan completed by : DEANN Lemus [facility] - 06/14/2014 9:09 INSPECTOR FIBROUS WALLBOARD [facility] P[facility] Document Id: [id number] INSPECTOR FIBROUS WALLBOARD!196 ECTOR FIBROUS WALLBOARD documented in this encounter Plan of Treatment Not on filedocumented as of this encounter Procedures Procedure Name Priority Date/Time Associated Comments Diagnosis PROTHROMBIN TIME Routine 06/13/2014 8:43 AM Resul ts for this (PT), P INSPECTOR FIBROUS WALLBOARD procedure are i n the results section. documented in this encounter Results (ABNORMAL) PT (Prothrombin Time) with INR (06/13/2014 8:43 AM INSPECTOR FIBROUS WALLBOARD) [facility] gist Method Time Signature INR 1.30 (H) 0.90 - 1.16 POWERCHART Prothrombin 13.8 (H) 8.7 - 11.8 POWERCHART Time, P SECONDS Specimen (Source) Anatomical Collection Method Collection Time Re ceived Time Location / / Volume Laterality Blood 06/13/2014 8:43 AM INSPECTOR FIBROUS WALLBOARD Sridhar Garibay M.D. LAB BLOOD ADD-ON Performing Organization Address City/State/ZIP Code Phon e Number POWERCHART documented in this encounter Visit Diagnoses Not on filedocumented in this encounter
--- OUTSIDE RECORDS SUMMARY | 2022-04-25 16:03 | XMS_ITS | Encounter Summary ---
:1975 Author Organization [facility] Address [address] [place] [address] Care Team Providers Name Role Phone Unavailable Primary Care Provider Unavailable Encounter Details Date Type Department Care Team Description 06/16/2014 Hospital Encounter HX [facility] Marsha Garibay M.D. [address] [place], [place] [address] (Wo rk) Social History [...] - - Height 157 cm (5' 1.81) 06/16/2014 10:05 AM CYLINDER HANDLER Body Mass Index - - documented in this encounter Medications at Time of Discharge Medication Sig Dispensed Refills Start Date End Date multivitamin tablet Take 2 tablets by 0 3 mouth daily. FLUORIDE, SODIUM, Apply 1 application 0 3 12/31/2019 DENTAL topically 2 (two) times a day. documented as of this encounter Plan of Treatment Not on filedocumented as of this encounter Procedures Procedure Name Priority Date/Time Associated Comments Diagnosis PROTHROMBIN TIME Routine 06/16/2014 10:06 Results for this (PT), P AM CYLINDER HANDLER procedure are i n the results section. documented in this encounter Results (ABNORMAL) PT (Prothrombin Time) with INR (06/16/2014 10:06 AM CYLINDER HANDLER) [facility] Method Time Signature INR 2.04 (H) 0.90 - 1.16 POWERCHART Prothrombin 22.8 (H) 8.7 - 11.8 POWERCHART Time, P SECONDS Specimen (Source) Anatomical Collection Method Collection Time Re ceived Time Location / / Volume Laterality Blood 06/16/2014 10:06 AM CYLINDER HANDLER Sridhar Garibay M.D. LAB BLOOD ADD-ON Performing Organization Address City/State/ZIP Code Phon e Number POWERCHART documented in this encounter Visit Diagnoses Not on filedocumented in this encounter
--- OUTSIDE RECORDS SUMMARY | 2022-04-25 16:03 | XMS_ITS | Encounter Summary ---
:1975 Author Organization [facility] Address [address] [place] [address] Care Team Providers Name Role Phone Unavailable Primary Care Provider Unavailable Encounter Details Date Type Department Care Team Description 10/23/2014 Hospital Encounter HX [facility] Marsha Henriquez M.D. [address] [place], [place] [address] (Wo rk) Social History [...] - - Height 157 cm (5' 1.81) 10/23/2014 7:35 AM CDT Body Mass Index - - documented in this encounter Medications at Time of Discharge Medication Sig Dispensed Refills Start Date End Date multivitamin tablet Take 2 tablets by 0 3 mouth daily. FLUORIDE, SODIUM, Apply 1 application 0 3 12/31/2019 DENTAL topically 2 (two) times a day. documented as of this encounter Miscellaneous Notes Miscellaneous - Khadar Banda, RMichaelN. - 10/23/2014 10:11 AM CDT Anticoagulation Patient Intake Anticoagulation Patient Intake Entered On: 10/23/2014 10:15 CDT Performed On: 10/23/2014 10:11 CDT by KHADAR BANDA RN Plan INR goal range : 2.0 - 3.0 Duration of Therapy : Lifelong Tablet Size : 5 mg KHADAR BANDA RN - 10/23/2014 10:11 CDT Anticoagulation Management Plan Grid Date [...] darya BURGESS JM KHADAR Mae RN - 10/23/2014 10:11 CDKHADAR BERNSTEIN RN - 10/23/2014 10:11 CDT KHADAR BANDA RN - 10/23/2014 10:11 CDT KHADAR BANDA RN - 10/23/2014 10:11 CDT Date : 12/26/2013 CDT 01/30/2014 [...] completed by : KHADAR Cho RN - 10/23/2014 10:11 CDT KHADAR BANDA RN - 10/23/2014 10:11 CDT KHADAR BANDA RN - 10/23/2014 10:11 CDT KHADAR BANDA RN - 10/23/2014 10:11 CDT Date : 03/20/2014 CDT 03/27/2014 [...] Other: Plan completed by : darya lackey [facility]/pharmacy KHADAR BANDA RN - 10/23/2014 10:11 CDT KHADAR BANDA RN - 10/23/2014 10:11 CDT KHADAR BANDA RN - 10/23/2014 10:11 CDT KHADAR BANDA RN - 10/23/2014 10:11 CDT Date : 04/17/2014 CDT 04/24/2014 CDT 05/01/2014 PHILOSOPHY FACULTY MEMBER 05/15/2014 PHILOSOPHY FACULTY MEMBER Location of INR sample : Lab Lab [...] will trynoted dose called to mom Fabiola [phone] called to Fabiola/no changes Called to mother/Fabiola, not awareof any changes Recommend Recheck : One week One week Two weeks Two weeks Plan completed by : KHADAR HACKETT RN - 10/23/2014 10:11 CDT KHADAR BANDA RN - 10/23/2014 10:11 CDT KHADAR BANDA RN - 10/23/2014 10:11 CDT KHADAR BANDA RN - 10/23/2014 10:11 CDT Date : 06/03/2014 PHILOSOPHY FACULTY MEMBER 06/05/2014 PHILOSOPHY FACULTY MEMBER 06/10/2014 PHILOSOPHY FACULTY MEMBER 06/11/2014 PHILOSOPHY FACULTY MEMBER Location of INR sample : Lab Type [...] Called motherFabiola. Hue will be staying in [place] 2wks post-surgery & have INR drawn there. [...] lovenox tomorrow AM as ordered. INR in [place] for next several weeks as pt will be recovering there. Recommend Recheck : Other: depending on Dr. Henriquez's preop. Other: 06/18 Other: 06/13/14 Plan completed by : KHADAR SANDERS RN - 10/23/2014 10:11 CDT KHADAR BANDA RN - 10/23/2014 10:11 CDT KHADAR BANDA RN - 10/23/2014 10:11 CDT KHADAR BANDA RN - 10/23/2014 10:11 CDT Date : 06/14/2014 PHILOSOPHY FACULTY MEMBER 06/14/2014 PHILOSOPHY FACULTY MEMBER 06/16/2014 PHILOSOPHY FACULTY MEMBER 06/23/2014 PHILOSOPHY FACULTY MEMBER Location of INR sample : Clinic Lab Lab Type of Sample : Venous Venous INR Result : 1.3 on 06/13 2.4 faxed from lab 2.0 Warfarin Dose : (pt took 2.5mg 06/13) 5mg Sat and 5mg Sun (06/14 and 06/15) 5mg Mon and 2.5mg all other days 5mg Mon and 2.5mg all other days Total Weekly Warfarin Dose : 20 20 Comment : [place] lab called with INR result from 06/13, reported they left a message with Dr. Henriquez and hadn't heard back, spoke with mother, Fabiola, and gave doses, continue Lovenox and repeat INR 06/16, message left with INR clinic in to contact CF Please contact [place] lab on 06/16 for result and may call Fabiola at [phone] with instructions call to Fabiola/will stop Lovenox injections and take noted dose/pt has an appt here in 06/23 so will do lab appt here that day Called to Fabiola/ Hue will be back at [facility] by next draw. will have done on . no changes to meds/diet. Recommend Recheck : Two days One week Two weeks Plan completed by : KHADAR Mattson LM RN - 10/23/2014 10:11 CDT KHADAR BANDA RN - 10/23/2014 10:11 PATRICIAT KHADAR BANDA RN - 10/23/2014 10:11 CDT KHADAR BANDA RN - 10/23/2014 10:11 CDT Date : 07/10/2014 PHILOSOPHY FACULTY MEMBER 07/17/2014 PHILOSOPHY FACULTY MEMBER 07/31/2014 PHILOSOPHY FACULTY MEMBER 09/11/2014 CDT Location of INR sample : [...] completed by : KHADAR Dumont RN - 10/23/2014 10:11 CDT KHADAR BANDA RN - 10/23/2014 10:11 PATRICIAT KHADAR BANDA RN - 10/23/2014 10:11 PATRICIAT KHADAR BANDA RN - 10/23/2014 10:11 CDT Date : 09/12/2014 CDT 09/25/2014 [...] completed by : KHADAR Rondon RN - 10/23/2014 10:11 CDT KHADAR BANDA RN - 10/23/2014 10:11 CDT KHADAR BANDA RN - 10/23/2014 10:11 CDT KHADAR BANDA RN - 10/23/2014 10:11 CDT Date : 10/23/2014 CDT Location of INR sample : Lab Type of Sample : Venous INR Result : 2.6 Warfarin Dose : 5mg Tues/Thurs/Sat, 2.5mg all other days Total Weekly Warfarin Dose : 25 Comment : called to Mom/Fabiola, no changes Recommend Recheck : Three weeks Plan completed by : KHADAR Mae RN - 10/23/2014 10:11 CDT Anticoagulation Assessment / History Visit : Phone management Plan of Care Date : 01/29/2008 CDT Primary Physician Anticoagulation : TASHA HENRIQUEZ MD 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 - 10/23/2014 10:03 AM CDT Results Notification From: KHADAR BANDA RN ( Anticoagulation Nurse) To: Anticoagulation Nurse; Sent: 10/23/2014 10:03:35 CDT Show up: 10/23/2014 10:04:00 CDT Subject: Results Notification Results: Date Result Name Value Ref Range 10/23/2014 08:00 PT 28.8 second(s) 10/23/2014 08:00 INR 2.6 INR (0.8 - 1.1) Source: [facility] POWERCHART Document Id: [id number] documented in this encounter Plan of Treatment Not on filedocumented as of this encounter Procedures Procedure Name Priority Date/Time Associated Comments Diagnosis PROTHROMBIN TIME Routine 10/23/2014 8:00 AM Resul ts for this (PT), P CDT procedure are i n the results section. documented in this encounter Results (ABNORMAL) PT (Prothrombin Time) with INR (10/23/2014 8:00 AM CDT) [facility] Method Time Signature Prothrombin 28.8 SECONDS POWERCHART Time, P INR 2.6 (H) 0.8 - 1.1 POWERCHART INR Comment: Recommended INR for prophylaxis/treatmen t of Venous Thrombosis, Pulmonary Embolism, Myocardial Infarction, and Embolism from Atrial Fibrillation is 2.0- 3.0 (Standard Therapy) Recommended INR for Mechanical Heart Teajl ves and recurrent Systemic Embolism is 2.5-3.5 (Intensive Therapy) Specimen (Source) Anatomical Collection Method Collection Time Re ceived Time Location / / Volume Laterality Blood 10/23/2014 8:00 AM CDT Tasha Henriquez M.D. LAB BLOOD ADD-ON Performing Organization Address City/State/ZIP Code Phon e Number POWERCHART documented in this encounter Visit Diagnoses Not on filedocumented in this encounter
--- OUTSIDE RECORDS SUMMARY | 2022-04-25 16:03 | XMS_ITS | Encounter Summary ---
:1975 Author Organization [facility] Address [address] [place] [address] Care Team Providers Name Role Phone Unavailable Primary Care Provider Unavailable Encounter Details Date Type Department Care Team Description 05/29/[address] [facility] Susan Heard SURGCLINI M.D. [address] [place] [address] (Wo rk) Social History Tobacco Use Types Packs/Day Years Used Date Smoking Tobacco: Never Assessed Sex Assigned at Date Recorded Not on file documented as of this encounter Last Filed Vital Signs Vital Sign Reading Time Taken Comments Blood Pressure 104/52 05/29/2014 2:09 PM GEOPHYSICAL PROSPECTING SURVEYOR Pulse 69 05/29/2014 2:09 PM GEOPHYSICAL PROSPECTING SURVEYOR Temperature - - Respiratory Rate - - Oxygen Saturation - - Inhaled Oxygen Concentration - - Weight - - Height 157 cm (5' 1.81) 05/29/2014 2:09 PM GEOPHYSICAL PROSPECTING SURVEYOR Body Mass Index - - documented in this encounter Medications at Time of Discharge Medication Sig Dispensed Refills Start Date End Date multivitamin tablet Take 2 tablets by 0 3 mouth daily. FLUORIDE, SODIUM, Apply 1 application 0 3 12/31/2019 DENTAL topically 2 (two) times a day. documented as of this encounter Consult Notes Susan Heard M.D. - 05/29/2014 1:55 PM CST [id number] I was asked to see this patient by Dr. West regarding symptomatic cholelithiasis. HISTORY OF PRESENT ILLNESS Dorita is a 39-year-old female who presented to the emergency department this morning for evaluation of right upper quadrant abdominal pain. The pain started last night and has been localized to the right upper quadrant. The pain was quite severe at its worst. She is unsure if it is related to meals.After her stay in the emergency department the pain has improved significantly. She is still a little bit sore in the right upper quadrant. She was able to eat this morning. She has had no previous episodes. She did have some nausea last night. She has had no fever, chills, or diarrhea or constipation. Her mother is present in clinic with her today. 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 History of deep venous thrombosis. Hyperlipidemia. Impaired fasting glucose. Mitral valve regurgitation. Psoriasis. PAST SURGICAL HISTORY: Atrioventricular operation. I and D left thigh. MEDICATIONS Albuterol inhaler. Baby aspirin. Doxycycline. Lasix. Metoprolol. Multivitamin. Potassium chloride. Tramadol. Tylenol. Warfarin. ALLERGIES Bee stings. Chloramphenicol. Quinolone antibiotics. FAMILY HISTORY Assessed and noncontributory. SOCIAL HISTORY Patient lives alone at [facility] and is fairly independent. She does not smoke and does not drink alcohol. Her mother is her medical decision maker. PHYSICAL EXAMINATION VITAL SIGNS: Temperature 36.8, heart rate 69, respiratory rate 18, blood pressure 104/52, oxygen saturation 100% on room air. GENERAL: No acute distress, sitting comfortably in examination room. EYES: Pupils equal, round, reactive to light. Extraocular motion intact. No scleral icterus. CARDIOVASCULAR: Regular rate and rhythm. Palpable and symmetric radial and posterior tibial pulses bilaterally. No peripheral edema or cyanosis. RESPIRATORY: Lungs clear to auscultation bilaterally. No wheezes, crackles, rales. No cough. Normal respiratory effort. GASTROINTESTINAL: Abdomen is soft, nondistended, tenderness to deep palpation in the right upper quadrant. No rebound or guarding. NEUROLOGIC: Alert and oriented. Cranial nerves II through XII grossly intact. SKIN: Warm and dry. No rashes or jaundice. PSYCHIATRIC: Normal affect. Pleasant and cooperative. DIAGNOSTICS LABORATORY: PTT is normal. LFTs are normal. CBC is normal. INR 2.1. IMAGING: Abdominal ultrasound shows multiple shadowing gallstones noted within the gallbladder. No significant gallbladder wall thickening or sonographic Reeves sign to suggest acute cholecystitis. IMPRESSION/REPORT/PLAN A 39-year-old female with symptomatic cholelithiasis, no evidence of acute cholecystitis. PLAN: I discussed the treatment options with Dorita and her mother. One would be to monitor the situation as this was her first attack. The other would be to undergo surgical excision of the gallbladder. I described the procedure details, expected recovery, and potential complications of a laparoscopic cholecystectomy. Complications discussed include bleeding, infection, bowel injury, bladder injury, solid organ injury, common bile duct injury, bile leak, retained stone, anesthesia reaction, perioperative myocardial infarction, blood clots, respiratory failure, and stroke. We also discussed the possibility of a conversion to an open procedure. Dorita and her mother are agreeable to proceed forward with the procedure and signed the informed consent form. She will be scheduled on an elective outpatient basis. I will have her see her primary care provider Dr. Henriquez prior to the procedure for a preoperative history and physical examination and clearance for anesthesia. She is currently on warfarin and may require bridging therapy with Lovenox as well. Patient and her mother will call me if any questions or concerns. Otherwise, I will see them on her planned operative date. This was a greater than 20-minute clinic visit. I spent greater than 50% of the time counseling the patient. Susan Heard M.D./erin cc: Tasha Henriquez M.D. [address] [place] [address] Electronically Signed By: SUSAN HEARD MD On: 06/16/2014 04:30 PM Source: [facility] MHSDOLBEYNONRADSYS Document Id: [id number] HYSICAL PROSPECTING SURVEYOR documented in this encounter Nursing Notes Susan Heard M.D. - 05/29/2014 2:42 PM CST Ambulatory Patient Education The following Patient Education Materials have been given to the patient: Patient Education Materials: Ambulatory BILIARY COLIC w/Gallstone (cnfrmd) Ambulatory Gallstones With Biliary Colic [Confirmed Dx] The abdominal pain that you have today is due to spasm of the gallbladder. The gallbladder is a small sac under the liver which stores and releases bile. Bile is a fluid that aids in the digestion of fat. A gallstone may form inside the gallbladder and block the flow of bile fluid. This causes mild tosevere crampy pain in the mid or right upper abdomen with nausea and vomiting. Home Care: ?? Rest in bed and follow a clear liquid diet until feeling better. If pain or nausea medicine was given to help with your symptoms, take these as directed. ?? Fat in your diet makes the gallbladder contract and may cause increased pain. Therefore, avoid fat in your diet over the next two days and follow a low-fat diet after that. If you are overweight, a low-fat diet will also help you lose weight. Follow Up with your doctor. There is a 50% chance that you will have another episode of pain from your gallstones during the next 2 years. Removal of the gallbladder is the treatment of choice to prevent this. Schedule an appointment with your own doctor during the next week to discuss the treatment options. Get Prompt Medical Attention if any of the following occur: ?? Pain gets worse or moves to the right lower abdomen ?? Repeated vomiting ?? Swelling of the abdomen ?? Pain lasts over 6 hours ?? Fever of 100.4??F (38??C) or higher, or as directed by your healthcare provider ?? Weakness, dizziness or fainting ?? Dark urine or light colored stools ?? Yellow color of the skin or eyes ?? Chest, arm, back, neck or jaw pain ?? [id number] [place] [address]. All rights reserved. This information is not intended as a substitute for professional medical care. Always follow your healthcare professional's instructions. This document has images extracted. Please consider using [employer] for all your patient education needs. Source: [facility] POWERCHART Document Id: [id number] HYSICAL PROSPECTING SURVEYOR documented in this encounter Miscellaneous Notes Miscellaneous - Conversion, Historical Provider Ser - 05/29/2014 4:53 PM GEOPHYSICAL PROSPECTING SURVEYOR Insurance verification From: BLAYNE ANNE Sent: 05/29/2014 16:53:44 GEOPHYSICAL PROSPECTING SURVEYOR Subject: Insurance verification Verified insurance for Dorita's surgery scheduled for 06/11/14 via [employer]. Pt has current coverage with /[facility]. No auth is required for this OP procedure, CPT 75941 Source: [facility] POWERCHART Document Id: [id number] Miscellaneous - Cassidy Bob, L.P.N. - 05/29/2014 2:50 PM CST GENERAL SURGERY REQUEST From: CASSIDY BOB LPN To: [facility]; [facility] Surgery Nurse Electric Truck Driver; Surgery Director Of Perioperative Services; Sent: 05/29/2014 14:50:05 GEOPHYSICAL PROSPECTING SURVEYOR Subject: GENERAL SURGERY REQUEST Surgery Clinic Schedule Checklist Patient Contact Number: [phone] ([facility] [place]) Surgeon: DR. HEARD Surgical Service: (_) Orthopedics (X) General surgery (_) Ophthalmology (_) Podiatry (_) ENT (_) Urology (_) OB / Gynecology (_) Other Date of Surgery: 06/11/14 Place of Surgery: Procedure (as written on Consent): LAPAROSCOPIC CHOLECYSTECTOMY, POSSIBLE OPEN Diagnosis (reason for surgery): _ Work Comp: (X) No (_) Yes Surgeon Anticipated Time: 60 MINUTES Case Type: (X) Outpatient (_) AM Admit (_) Inpatient (_) Other Pre-op MD: MARTINEZ Post-Op Appt:(time frame when to return) 7-10 DAYS Surgery Brochure Given: (X) Yes (_) No (_) Mailed to Patient SPECIAL EQUIPMENT/SPECIAL INSTRUCTION: Special Equipment needed: _ Rep Needed: (_) No (_) Yes Special Instructions/Prep: _ Radiology Needs: _ OT Post-op Appt Needed: (_) No (_) Yes Ortho Patients Only Metal Removal: (_) No (_) Yes X-Ray Location (if not done in [facility]): _ CPM Post-op: (_) No (_) Yes- please make sure MD places order If Total Joint Case: Type of Prosthesis: _ Additional equipment: _ Has other side been done: (_) No (_) Yes Source: [facility] POWERCHART Document Id: [id number] Miscellaneous - Susan Heard M.D. - 05/29/2014 2:42 PM CST Ambulatory Patient Summary [facility] [address], [address] [place], [place] [id number] Visit Information Name: DORITA MEDINA [facility] Number: [id number] Current Date: 05/29/2014 14:42:14 Physicians Attending Provider: SUSAN HEARD MD Primary [...] Indications/Special Instructions/Comments/Notes for Patient Medication Changes/Routing acetaminophen (Tylenol 500 mg oral tablet) 2 Tablet(s), Oral, every 6 hours as needed for Pain as needed for pain. Do not exceed eight tabs in 24hrs albuterol (albuterol CFC free 90 mcg/inh inhalation aerosol) 2 puff(s), Inhalation, every 4 hours asneeded for Air Hunger aspirin (aspirin 81 mg oral tablet) 1 Tablet(s), Oral, once a day doxycycline (doxycycline 20 mg oral tablet) 1 Tablet(s), Oral, two times a day fluoride topical (Prevident 5000 Plus topical paste) 1 luther, Topical, two times a day furosemide (Lasix 20 mg oral tablet) See Instructions 1 tab(s) PO 2xDay for one wk then one tab daily for one wk metoprolol (metoprolol tartrate 25 mg oral tablet) 0.5 Tablet(s), Oral, two times a day Misc Prescription (NEW MED) See Instructions Rx mouth wash - daily multivitamin (multivitamin) 1 tab, Oral, once a day multivitamin with minerals (One-A-Day Women 50 Plus oral tablet) 1 Tablet(s), Oral, once a day potassium chloride (potassium chloride 10 mEq oral capsule, extended release) 1 cap, Oral, once a day traMADol (traMADol 50 mg oral tablet) 0.5 Tablet(s), Oral, every 6 hours as needed for Pain traMADol (traMADol 50 mg oral tablet) 1/2 [...] the Following Medications: Medication list as of 05-29-14 14:42 Attention: If you have any medications at [...] Electronically Signed By: SUSAN HEARD MD Signed On:29-MAY-2014 14:41:42 Your Allergies & Intolerances Substance Reaction Symptoms [...] local Clinic if further appointment detail needed. Gallstones With Biliary Colic [Confirmed Dx] The abdominal pain that you have today is due to spasm of the gallbladder. The gallbladder is a small sac under the liver which stores and releases bile. Bile is a fluid that aids in the digestion of fat. A gallstone may form inside the gallbladder and block the flow of bile fluid. This causes mild tosevere crampy pain in the mid or right upper abdomen with nausea and vomiting. Home Care: ?? Rest in bed and follow a clear liquid diet until feeling better. If pain or nausea medicine was given to help with your symptoms, take these as directed. ?? Fat in your diet makes the gallbladder contract and may cause increased pain. Therefore, avoid fat in your diet over the next two days and follow a low-fat diet after that. If you are overweight, a low-fat diet will also help you lose weight. Follow Up with your doctor. There is a 50% chance that you will have another episode of pain from your gallstones during the next 2 years. Removal of the gallbladder is the treatment of choice to prevent this. Schedule an appointment with your own doctor during the next week to discuss the treatment options. Get Prompt Medical Attention if any of the following occur: ?? Pain gets worse or moves to the right lower abdomen ?? Repeated vomiting ?? [id number] of the abdomen ?? Pain lasts over 6 hours ?? Fever of 100.4?F (38?C) or higher, or as directed by your healthcare provider ?? Weakness, dizziness or fainting ?? Dark urine or light colored stools ?? Yellow color of the skin or eyes ?? Chest, arm, back, neck or jaw pain ?? [id number] Mara Underwood, [address] [place] [address], [place] [address]. All rights reserved. This information is not intended as a substitute for professional medical care. Always follow your healthcare professional's instructions. Your Goals/Additional instructions: This document has images extracted. Please consider using [facility] [employer] for all your patient education needs. Source: [facility] POWERCHART Document Id: [id number] HYSICAL PROSPECTING SURVEYOR Miscellaneous - Susan Heard M.D. - 05/29/2014 2:42 PM CST Ambulatory Discharge Medication List [facility] [address], [address] [place], [place] [id number] Visit Information Name: DORITA MEDINA [facility] Number: [id number] Visit Date: 05/29/2014 14:42:13 Attending Provider: SUSAN HEARD MD Primary Care [...] Indications/Special Instructions/Comments/Notes for Patient Medication Changes/Routing acetaminophen (Tylenol 500 mg oral tablet) 2 Tablet(s), Oral, every 6 hours as needed for Pain as needed for pain. Do not exceed eight tabs in 24hrs albuterol (albuterol CFC free 90 mcg/inh inhalation aerosol) 2 puff(s), Inhalation, every 4 hours asneeded for Air Hunger aspirin (aspirin 81 mg oral tablet) 1 Tablet(s), Oral, once a day doxycycline (doxycycline 20 mg oral tablet) 1 Tablet(s), Oral, two times a day fluoride topical (Prevident 5000 Plus topical paste) 1 luther, Topical, two times a day furosemide (Lasix 20 mg oral tablet) See Instructions 1 tab(s) PO 2xDay for one wk then one tab daily for one wk metoprolol (metoprolol tartrate 25 mg oral tablet) 0.5 Tablet(s), Oral, two times a day Misc Prescription (NEW MED) See Instructions Rx mouth wash - daily multivitamin (multivitamin) 1 tab, Oral, once a day multivitamin with minerals (One-A-Day Women 50 Plus oral tablet) 1 Tablet(s), Oral, once a day potassium chloride (potassium chloride 10 mEq oral capsule, extended release) 1 cap, Oral, once a day traMADol (traMADol 50 mg oral tablet) 0.5 Tablet(s), Oral, every 6 hours as needed for Pain traMADol (traMADol 50 mg oral tablet) 1/2 [...] the Following Medications: Medication list as of 05-29-14 14:42 Attention: If you have any medications at [...] Electronically Signed By: SUSAN HEARD MD Signed On:29-MAY-2014 14:41:42 Additional Information: Source: [facility] POWERCHART Document Id: [id number] HYSICAL PROSPECTING SURVEYOR Miscellaneous - Conversion, Historical Provider Ser - 05/29/2014 2:09 PM GEOPHYSICAL PROSPECTING SURVEYOR Adult Floor Service Worker [place] Intake/History Adult Floor Service Worker [place] Intake/History Entered On: 05/29/2014 14:12 GEOPHYSICAL PROSPECTING SURVEYOR Performed On: 05/29/2014 14:09 GEOPHYSICAL PROSPECTING SURVEYOR by CAROLA GOODSON CMA Intake Chief Complaint : Consult-gallbladder/pt had US /pt on Warfarin for blood clots Temperature Core : 36.8 DegC(Converted to: 98.2 DegF) Peripheral Pulse Rate : 69 /min Systolic Blood Pressure : 104 mmHg Diastolic Blood Pressure : 52 mmHg NIBP Mean : 69 mmHg Height : 157 cm(Converted to: 5 ft 2 inch(es), 62 inch(es)) CAROLA GOODSON CMA - 05/29/2014 14:09 GEOPHYSICAL PROSPECTING SURVEYOR General Info Information Given By : Patient Preferred Communication Mode : Verbal Languages : Tamazight Is Patient Female and 13-50 no hysterectomy : Yes Status : Patient denies Are you ? : No CAROLA GOODSON [facility] - 05/29/2014 14:09 GEOPHYSICAL PROSPECTING SURVEYOR Subjective Pain Symptoms : Yes CAROLA GOODSON [facility] - 05/29/2014 14:09 GEOPHYSICAL PROSPECTING SURVEYOR Pain Pain Assessment Grid Pain 1 Location : Abdomen Intensity : 10 CAROLA GOODSON [facility] - 05/29/2014 14:09 GEOPHYSICAL PROSPECTING SURVEYOR Dependent Habits Tobacco Use/Currently Using : No Smoking Status : Never smoker CAROLA GOODSON [facility] - 05/29/2014 14:09 GEOPHYSICAL PROSPECTING SURVEYOR ID Screen Travel Within Last 21 Days : No CAROLA GOODSON [facility] - 05/29/2014 14:09 GEOPHYSICAL PROSPECTING SURVEYOR Source: [facility] Document Id: [id number] GEOPHYSICAL PROSPECTING SURVEYOR!28 documented in this encounter Plan of Treatment Not on filedocumented as of this encounter Visit Diagnoses Not on filedocumented in this encounter
--- OUTSIDE RECORDS SUMMARY | 2022-04-25 16:03 | XMS_ITS | Encounter Summary ---
:1975 Author Organization [facility] Address [address] [place] [id number] Care Team Providers Name Role Phone Unavailable Primary Care Provider Unavailable Encounter Details Date Type Department Care Team Description 06/10/[address] [facility] Alyssa Haider M.D. [address] [place] [address] (Wo rk) Social History Tobacco Use Types Packs/Day Years Used Date Smoking Tobacco: Never Assessed Sex Assigned at Date Recorded Not on file documented as of this encounter Last Filed Vital Signs Vital Sign Reading Time Taken Comments Blood Pressure 102/58 06/10/2014 4:06 PM HEMATOLOGY TECHNOLOGIST Pulse 64 06/10/2014 4:06 PM HEMATOLOGY TECHNOLOGIST Temperature - - Respiratory Rate - - Oxygen Saturation - - Inhaled Oxygen Concentration - - Weight 81 kg (178 lb 9.2 oz) 06/10/2014 4:06 PM HEMATOLOGY TECHNOLOGIST Height 157 cm (5' 1.81) 06/10/2014 4:06 PM HEMATOLOGY TECHNOLOGIST Body Mass Index 32.86 06/10/2014 4:06 PM HEMATOLOGY TECHNOLOGIST documented in this encounter Medications at Time of Discharge Medication Sig Dispensed Refills Start Date End Date multivitamin tablet Take 2 tablets by 0 3 mouth daily. FLUORIDE, SODIUM, Apply 1 application 0 3 12/31/2019 DENTAL topically 2 (two) times a day. documented as of this encounter H&P Notes Alyssa Campbell M.D. - 06/10/2014 4:14 PM CST Pre op: roberto, 12/16/14 CHIEF COMPLAINT/REASON FOR VISIT preop laparoscopic cholecystectomy HISTORY OF PRESENT ILLNESS Date of Surgery: 06/11/14 Type of Anticipated Surgery: lap cholecystectomy Reason for Surgery: RUQ abd pain Consulting Surgeon: Dr Parikh Type of Anesthesia Anticipated: Choice This patient will be undergoing the above surgery. The consulting surgeon requests pre-anesthesia evaluation because of the following complicating medical problem(s): Prior DVT with Primary Hypercoagulable State: Pt had DVT 2006. Has been on Coumadin. No current sx's. Per Dad, was told to stop coumadin 5 days ago so off it now but taking ASA. Patient's Dad is present for exam and visit and provides history: The patient denies any personal or family history of anesthesia complications. Risk: No Contraception: abstinence Chronic Prednisone Use in past year: No MEDICATIONS aspirin 81 mg oral tablet, 81 mg, 1 tab(s), PO, Daily doxycycline 20 mg oral tablet, 1 tab(s), PO, 2xDay multivitamin, 1 tab, PO, Daily NEW MED, See Instructions, Rx mouth wash - daily Prevident 5000 Plus topical paste, 1 luther, Topical, 2xDay traMADol 50 mg oral tablet, 1/2 or 1 tab, PO, q6hr, PRN, 0 refills warfarin 1 mg oral tablet, See Instructions, 1 mg daily or as directed per INR Clinic, * warfarin 5 mg oral tablet, See Instructions, 5mg Mon, 2.5mg all other days or as directed by the INR clinic as of 04/17/14, 6 refills, * * indicates non-compliance NOT TAKING COUMADIN x 5 DAYS ALLERGIES Bee Stings chloramphenicol containing compounds quinolone antibiotics PAST MEDICAL HISTORY Chronic Gallstone Without Obstruction Impaired Fasting Glucose Irregular Menstrual Cycle Mixed Hyperlipidemia Phlebitis and Thrombophlebitis of Other Deep Vessels of Lower Extremities Primary Hypercoagulable State Historical No historical problems PROCEDURES/SURGICAL HISTORY AV - Atrioventricular valve operation (03/29/2013), Colonoscopy (12/04/2012), Papanicolaou smear taken (07/19/2010), I and D, left thigh & leg (01/15/2000). SOCIAL HISTORY Date Time: 06/10/2014 16:06 Tobacco: Smoking Status: Never smoker Exposure: Other: never smoker Alcohol: Use: No Results Found Recreational Drugs: Use: No Results Found Type: No Results Found FAMILY HISTORY Aunt (Maternal):Positive: CA - Breast cancer; Thyroid dysfunction Uncle (Maternal):Positive: Aneurysm Aunt (maternal):Positive: Thyroid dysfunction SYSTEMS REVIEW GENERAL: no weight gain, no weight loss, no fever in past month, no chills, no sweats, no fatigue EENT: no blurred vision, no double vision, no eye pain, no sinus problems, no hoarseness, no difficulty swallowing, no mouth sores, no diminished hearing, no ringing in ears, no enlarged glands PULMONARY: no shortness of breath, no cough, no wheezing, no sputum, no hemoptysis CARDIAC: no valve problems, no chest pain, no chest pressure, no rapid beating, no irregular beating, no dependent edema, pain in calves or with walking, no difficulty moving arms and legs GI: Other than RUQ abd pain. no heartburn, no nausea, no vomiting, no stomach trouble, no constipation, no diarrhea, no blood in BMs, no new changes in BMs : no burning/pain with urination, no difficulty starting stream, no difficulty emptying bladder, no excessive urination, MUSCULOSKELETAL: no joint pain, no joint swelling, no muscle pain, no new back pain. SKIN: no skin rashes, no skin sores NEURO: no significant headaches, no slurred speech, no seizures, no dizziness, no loss of consciousness, no memory loss ENDOCRINE: no excessive thirst, no excessive bruising. VITAL SIGNS T: 36.7 ??C (Core) BP: 102 / 58 HT: 157 cm WT: 81 kg BMI: 32.86 PHYSICAL EXAMINATION GENERAL: Patient is in no distress. Capable of full communication without difficulty. Patient is polite and cooperative. Appropriately dressed and normal hygiene. HEENT: Normocephalic. EOMI, PERRLA, Canals washed and patent, TMs normal. Oropharynx without lesionof mucosa. Pharyngeal rises symmetrically without exudate. NECK: No nodes, no thyromegaly. HEART: Regular rate and rhythm. No murmurs, gallops or rubs noted. LUNGS: Clear to auscultation bilaterally. No expiratory wheeze. No accessary muscles of respirationnoted. ABDOMEN: Nontender to palpation. No hepato-splenomegaly. No mass. Normal bowel sounds in all 4 quadrants. EXTREMITIES: No neurovascular compromise. No cyanosis, clubbing or edema. No abnormal limb length. NEURO: normal mentation. No focal neurological findings. Normal gait. SKIN: no rashes or abnormal lesions. LAB RESULTS Prior labs done by Dr Parikh and normal Last INR 2.1 IMPRESSION/REPORT/PLAN Cerumen Impacted Douglas irrigated Deficiency Protein S Exam Preoperative NOS Gallstone Without Obstruction Primary Hypercoagulable State With h/o DVT's 2006 On chronic coumadin Pt has been off coumadin x 5 days. Due to her high risk for a recurrent VTE, pt would benefit from Lovenox 1mg/kg BID(80mg BID) starting 1 day post op and restarting coumadin the day of surgery. INR clinic has been notified and they will contact pt's parents to plan INR checks. Lovenox has been faxed to [facility]. INR goal 2-3. Pt's Dad is aware of need for Lovenox and may need teaching. Orders: enoxaparin, 80 mg = 0.8 mL, Subcut., Daily, x 5 day(s), # 4 mL, 1 Refill(s), Acute, Pharmacy: [facility] [id number] No evidence of functionally compromising cardiac or pulmonary status The patient is instructed as to which medications to take with sips of water the day of surgery. Electronically Signed By: ALYSSA CAMPBELL MD On: 06/10/2014 05:08 PM Source: Bitstamp Document Id: [id number] TOLOGY TECHNOLOGIST documented in this encounter Procedure Notes Roxy Rincon L.P.N. - 06/10/2014 4:46 PM CST Ear Irrigation Ear Irrigation Entered On: 06/10/2014 16:46 HEMATOLOGY TECHNOLOGIST Performed On: 06/10/2014 16:46 HEMATOLOGY TECHNOLOGIST by ROXY RINCON LPN Ear Irrigation Ear Irrigation Location : Bilateral Ear Irrigation Technique Used : Ear washer Ear Irrigation Solution Used : Warm water Ear Irrigation Results : large amt Post irrigation ear canal evaluation : Patent Post Irrigation Tympanic Membrane Eval : Intact ROXY RINCON LPN - 06/10/2014 16:46 HEMATOLOGY TECHNOLOGIST Source: Bitstamp Document Id: [id number] HEMATOLOGY TECHNOLOGIST!8 TOLOGY TECHNOLOGIST documented in this encounter Miscellaneous Notes Miscellaneous - Hanna Truong R.N. - 06/16/2014 5:08 PM CST Anticoagulation Patient Intake Anticoagulation Patient Intake Entered On: 06/16/2014 17:14 HEMATOLOGY TECHNOLOGIST Performed On: 06/16/2014 17:08 HEMATOLOGY TECHNOLOGIST by HANNA TRUONG RN Plan INR goal range : 2.0 - 3.0 Duration of Therapy : Lifelong Tablet Size : 5 mg HANNA TRUONG RN - 06/16/2014 17:08 HEMATOLOGY TECHNOLOGIST Anticoagulation Management Plan Grid Date : 09/05/2013 [...] 25 25 25 Comment : ly/called to Mom/Faboila called to Mom/Fabiola,no changes,they will be gone in 4wks will checkin 5wks Called to Mom/Fabiola, no changes called to Mom/Fabiola, no changes/HOLD tonight then resume as before Recommend Recheck : One month Other: 5 weeks Other: 5 weeks Two weeks Plan completed by : HANNA Ann RN - 06/16/2014 17:08 HEMATOLOGY TECHNOLOGIST HANNA TRUONG RN - 06/16/2014 17:08 HEMATOLOGY TECHNOLOGIST HANNA TRUONG RN - 06/16/2014 17:08 HEMATOLOGY TECHNOLOGIST HANNA TRUONG RN - 06/16/2014 17:08 HEMATOLOGY TECHNOLOGIST Date : 12/26/2013 CDT 01/30/2014 CDT 03/06/2014 [...] completed by : HANNA Eubanks RN - 06/16/2014 17:08 HEMATOLOGY TECHNOLOGIST HANNA TRUONG RN - 06/16/2014 17:08 HEMATOLOGY TECHNOLOGIST HANNA TRUONG RN - 06/16/2014 17:08 HEMATOLOGY TECHNOLOGIST HANNA TRUONG RN - 06/16/2014 17:08 HEMATOLOGY TECHNOLOGIST Date : 03/20/2014 CDT 03/27/2014 CDT 04/10/2014 [...] lackey LM /pharmacy HANNA TRUONG RN - 06/16/2014 17:08 HANNA RODRIGUES RN - 06/16/2014 17:08 HANNA RODRIGUES RN - 06/16/2014 17:08 HANNA RODRIGUES RN - 06/16/2014 17:08 HEMATOLOGY TECHNOLOGIST Date : 04/17/2014 CDT 04/24/2014 CDT 05/01/2014 HEMATOLOGY TECHNOLOGIST 05/15/2014 HEMATOLOGY TECHNOLOGIST Location of INR sample : Lab Lab [...] will trynoted dose called to mom Fabiola [phone] called to Fabiola/no changes Called to mother/Fabiola, not awareof any changes Recommend Recheck : One week One week Two weeks Two weeks Plan completed by : HANNA CLAY RN - 06/16/2014 17:08 HANNA RODRIGUES RN - 06/16/2014 17:08 HANNA RODRIGUES RN - 06/16/2014 17:08 HANNA RODRIGUES RN - 06/16/2014 17:08 HEMATOLOGY TECHNOLOGIST Date : 06/03/2014 HEMATOLOGY TECHNOLOGIST 06/05/2014 HEMATOLOGY TECHNOLOGIST 06/10/2014 HEMATOLOGY TECHNOLOGIST 06/11/2014 HEMATOLOGY TECHNOLOGIST Location of INR sample : Lab Type [...] Called motherFabiola. Dorita will be staying in [place] 2wks post-surgery & have INR drawn there. [...] lovenox tomorrow AM as ordered. INR in [place] for next several weeks as pt will be recovering there. Recommend Recheck : Other: depending on Dr. Henriquez's preop. Other: 06/18 Other: 06/13/14 Plan completed by : HANNA MARTIN RN - 06/16/2014 17:08 HEMATOLOGY TECHNOLOGIST HANNA TRUONG RN - 06/16/2014 17:08 HEMATOLOGY TECHNOLOGIST HANNA TRUONG RN - 06/16/2014 17:08 HEMATOLOGY TECHNOLOGIST HANNA TRUONG RN - 06/16/2014 17:08 HEMATOLOGY TECHNOLOGIST Date : 06/14/2014 HEMATOLOGY TECHNOLOGIST 06/14/2014 HEMATOLOGY TECHNOLOGIST 06/16/2014 HEMATOLOGY TECHNOLOGIST Location of INR sample : Clinic Lab Type of Sample : Venous INR Result : 1.3 on 06/13 2.4 faxed from lab Warfarin Dose : (pt took 2.5mg 06/13) 5mg Sat and 5mg Sun (06/14 and 06/15) 5mg Mon and 2.5mg all other days Total Weekly Warfarin Dose : 20 Comment : [place] lab called with INR result from 06/13, reported they left a message with Dr. Henriquez and hadn't heard back, spoke with motherFabiola, and gave doses, continue Lovenox and repeat INR 06/16, message left with INR clinic in [place] to contact CF Please contact [place] lab on 06/16 for result and may call Fabiola at [phone] with instructions call to Fabiola/will stop Lovenox injections and take noted dose/pt has an appt here in 06/23 so will do lab appt here that day Recommend Recheck : Two days One week Plan completed by : HANNA Neri RN - 06/16/2014 17:08 HEMATOLOGY TECHNOLOGIST HANNA TRUONG RN - 06/16/2014 17:08 HEMATOLOGY TECHNOLOGIST HANNA TRUONG RN - 06/16/2014 17:08 HEMATOLOGY TECHNOLOGIST Anticoagulation Assessment / History Visit : Phone management Plan of Care Date : 01/29/2008 CDT Primary Physician Anticoagulation : TASHA HENRIQUEZ MD 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 : DVT Lower, Other: Deep Phlebitis-Leg NEC CHADS2 Score Date : 09/05/2013 CDT HANNA TRUONG RN - 06/16/2014 17:08 HEMATOLOGY TECHNOLOGIST Source: [facility] POWERCHART Document Id: [id number] HEMATOLOGY TECHNOLOGIST!216 TOLOGY TECHNOLOGIST Miscellaneous - Sky Chinchilla R.N. - 06/11/2014 1:26 PM CST Med Management Document Contains Addenda Addendum by SAHCI DELATORRE MD on 11 June 2014 15:00:27 HEMATOLOGY TECHNOLOGIST From: SACHI DELATORRE MD Sent: 06/11/2014 15:00:27 HEMATOLOGY TECHNOLOGIST ! Subject: RE:Med Management Approved Order:enoxaparin (Lovenox 80 mg/0.8 mL injectable solution) 0.8 mL Subcut. q12hr Qty: 8 mL Duration: 5 day(s) Refills: 1 Substitutions Allowed Route To Pharmacy - [facility] Signed by SACHI DELATORRE MD 06/11/2014 15:00:06 From: SKY CHINCHILLA RN ( Song[facility]Maria[facility] Line) To: SACHI DELATORRE MD; Sent: 06/11/2014 13:26:25 HEMATOLOGY TECHNOLOGIST ! Subject: Med Management On hold pending signature Order:enoxaparin (Lovenox 80 mg/0.8 mL injectable solution) 0.8 mL Subcut. q12hr Qty: 8 mL Duration: 5 day(s) Refills: 1 Substitutions Allowed Route To Pharmacy - [facility] Caller is: ( ) Patient ( ) Mother ( ) Father ( ) Spouse ( ) Daughter ( ) Son ( ) Pharmacy ( x ) Other: Sabina calling from Same day surgery Physician: [place] Patient MRN #: Reason for Call: Pro op done by Dr. Quan states Due to her high risk of recurrent VTE, patient would benefit from Lovenox 1mg/kg BID ( 80 mg BID) starting 1 day post op and restarting Coumadin the day of surgery. INR goal is 2-3. Dr. Quan ordered Lovenox 80 mg SQ daily x 5 days. Message: This nurse huddled with Dr. Delatorre in both Dr. Olivarez and Dr. Gaxiola absence as patient has been waiting to discharge. Who verbalized that patient should be on 80 mg BID. Surgery notified; verbalized understanding. Patient will need an additional prescription for Lovenox Advice/Action: Source used: ( ) Verbalizes understanding of instructions ( ) Instructed to call back if symptoms worsen or do not resolve ( ) Refused to see provider ( ) Appointment Scheduled ( ) OK to leave message on voice mail ( ) Patient told to expect return call: ( ) today ( ) tomorrow ( ) next work day ( ) Patient's email ( ) Patient told physician out of office, will call upon return call on ( ) ( ) Patient told physician out of office, routed to other physician ( ) Other ( ) Call back telephone number ( ) Call back cell phone number ( ) Source: [facility] POWERCHART Document Id: [id number] Electronically signed by Conversion, [facility] Dough Machine Operator [id number] at 11/22/2016 6:08 PM CDT Miscellaneous - Alyssa Campbell M.D. - 06/10/2014 4:28 PM CST Ambulatory Patient Summary [facility] [address] [place], [place] [id number] Visit Information Name: NETTIE, DORITA SANTOSH [facility] Number: [id number] Current Date: 06/10/2014 16:28:41 Physicians Attending Provider: ALYSSA CAMPBELL MD Primary Care Provider: TASHA HENRIQUEZ MD [...] day traMADol (traMADol 50 mg oral tablet) 1/2 or 1 tab, Oral, every 6 hours as needed for Pain x 14 day(s) *warfarin (warfarin 5 mg oral tablet) See Instructions 5mg Mon, 2.5mg all other days or as directed by the INR clinic as of 04/17/14 *warfarin (warfarin 1 mg oral tablet) See Instructions 1 mg daily or as directed per INR Clinic * You have let us know that you are not taking this medication as listed. Please talk with your primary care provider or the health care provider who prescribed the medication as soon as possible. Stop Taking the Following Medications: furosemide (Lasix 20 mg oral tablet) metoprolol (metoprolol tartrate 25 mg oral tablet) potassium chloride (potassium chloride 10 mEq oral capsule, extended release) Medication list as of 06-10-14 16:28 Attention: If you have any medications at home that are not on this list, DO NOT take them until youcontact your provider for clarification. Give a copy of your medication list to your primary care provider. Update your medication list any time medications or doses are changed and carry your medication list at all times in case of emergency. Electronically Signed By: ALYSSA CAMPBELL MD Signed On:10-JUN-2014 16:27:55 Your Allergies & Intolerances Substance Reaction Symptoms [...] Your Upcoming Appointments Date Time Location Provider 06/11/2014 07:45 [facility] Main OR [facility] OR 04 06/18/2014 08:30 [facility] 06/23/2014 08:45 [facility] Kati TSANG, Eddi Benavides Attention: Contact your local Clinic if further appointment detail needed. Your Goals/Additional instructions: Source: [facility] POWERCHART Document Id: [id number] TOLOGY TECHNOLOGIST Miscellaneous - Alyssa Campbell M.D. - 06/10/2014 4:28 PM CST Ambulatory Discharge Medication List [facility] [address], [address] [place], [place] [id number] Visit Information Name: DORITA SHEFFIELD [facility] Number: [id number] Visit Date: 06/10/2014 16:28:40 Attending Provider: ALYSSA CAMPBELL MD Primary Care Provider: TASHA HENRIQUEZ MD [...] day traMADol (traMADol 50 mg oral tablet) 1/2 or 1 tab, Oral, every 6 hours as needed for Pain x 14 day(s) *warfarin (warfarin 5 mg oral tablet) See Instructions 5mg Mon, 2.5mg all other days or as directed by the INR clinic as of 04/17/14 *warfarin (warfarin 1 mg oral tablet) See Instructions 1 mg daily or as directed per INR Clinic * You have let us know that you are not taking this medication as listed. Please talk with your primary care provider or the health care provider who prescribed the medication as soon as possible. Stop Taking the Following Medications: furosemide (Lasix 20 mg oral tablet) metoprolol (metoprolol tartrate 25 mg oral tablet) potassium chloride (potassium chloride 10 mEq oral capsule, extended release) Medication list as of 06-10-14 16:28 Attention: If you have any medications at home that are not on this list, DO NOT take them until youcontact your provider for clarification. Give a copy of your medication list to your primary care provider. Update your medication list any time medications or doses are changed and carry your medication list at all times in case of emergency. Electronically Signed By: ALYSSA CAMPBELL MD Signed On:10-JUN-2014 16:27:55 Additional Information: Source: [facility] POWERCHART Document Id: [id number] TOLOGY TECHNOLOGIST Miscellaneous - Conversion, Historical Provider Ser - 06/10/2014 4:06 PM HEMATOLOGY TECHNOLOGIST Adult Care Administrative Tech Intake/History Adult Care Administrative Tech Intake/History Entered On: 06/10/2014 16:08 HEMATOLOGY TECHNOLOGIST Performed On: 06/10/2014 16:06 HEMATOLOGY TECHNOLOGIST by ROBEL ROBINS [facility] Intake Chief Complaint : preop laparoscopic cholecystectomy Temperature Core : 36.7 DegC(Converted to: 98.1 DegF) Peripheral Pulse Rate : 64 /min Systolic Blood Pressure : 102 mmHg Diastolic Blood Pressure : 58 mmHg NIBP Mean : 73 mmHg Height : 157 cm(Converted to: 5 ft 2 inch(es), 62 inch(es)) Actual Weight : 81 kg(Converted to: 178 lb 9 oz) Dosing Weight Clinic : 81 kg Clinic BSA : 1.88 Body Mass Index : 32.86 kg/m2 ROBEL ROBINS CMA - 06/10/2014 16:06 HEMATOLOGY TECHNOLOGIST General Info Information Given By : Patient Languages : Namibian Is Patient Female and 13-50 no hysterectomy : Yes Status : Patient denies Are you ? : No ROBEL ROBINS ICT ANALYST - 06/10/2014 16:06 HEMATOLOGY TECHNOLOGIST Subjective Pain Symptoms : Yes ROBEL ROBINS CMA - 06/10/2014 16:06 HEMATOLOGY TECHNOLOGIST Pain Pain Assessment Grid Pain 1 Location : Abdomen Intensity : 2 ROBEL ROBINS CMA - 06/10/2014 16:06 HEMATOLOGY TECHNOLOGIST Dependent Habits Tobacco Use/Currently Using : No Exposure to Tobacco Smoke : Other: never smoker Smoking Status : Never smoker ROBEL ROBINS [facility] - 06/10/2014 16:06 HEMATOLOGY TECHNOLOGIST ID Screen Travel Within Last 21 Days : No ROBEL ROBINS CMA - 06/10/2014 16:06 HEMATOLOGY TECHNOLOGIST Source: [facility] POWERCHART Document Id: [id number] HEMATOLOGY TECHNOLOGIST!32 documented in this encounter Plan of Treatment Not on filedocumented as of this encounter Visit Diagnoses Not on filedocumented in this encounter
--- OUTSIDE RECORDS SUMMARY | 2022-04-25 16:03 | XMS_ITS | Encounter Summary ---
:1975 Author Organization [facility] Address [address] [place] [id number] Care Team Providers Name Role Phone Unavailable Primary Care Provider Unavailable Encounter Details Date Type Department Care Team Description 05/29/2014 Hospital Encounter HX [facility] ED Harsh West M.D. [address] [place], [place] [phone] (Wo rk) Social History Tobacco Use Types Packs/Day Years Used Date Smoking Tobacco: Never Assessed Sex Assigned at Date Recorded Not on file documented as of this encounter Last Filed Vital Signs Vital Sign Reading Time Taken Comments Blood Pressure 112/76 05/29/2014 9:30 AM CHART READER Pulse 76 05/29/2014 8:37 AM CHART READER Temperature - - Respiratory Rate 18 05/29/2014 8:37 AM CHART READER Oxygen Saturation - - Inhaled Oxygen Concentration - - Weight - - Height 157.5 cm (5' 2) 05/29/2014 8:37 AM CHART READER Body Mass Index - - documented in this encounter Discharge Summaries Fallon Moon R.N. - 05/29/2014 12:25 PM CST ED Discharge Instructions [facility] [address] [place] [address] Name: DORITA SHEFFIELD Date of : 1975 12:00 AM Visit Date: 05/29/2014 8:29 AM [facility] Number: [id number] Address: [address] [facility] [phone] Primary Care Provider: TASHA HENRIQUEZ MD IMPORTANT: [facility] in [place] would like to thank you for allowing us to assist you with your healthcare needs. The following includes patient education materials and information regarding your injury/illness. Diagnosis: Gallstone Without Obstruction Follow-Up Instructions: With: Address: When: General Surgery Clinic Within Today Comments: at 2 pm (check in at 1:45 pm) with Dr Parikh Your Upcoming Appointments: Date Time Location Provider No Appointments found Patient Education Materials: [id number] GALLSTONES WITH BILIARY COLIC [confirmed dx] The abdominal pain that you have today [...] right upper abdomen with nausea and vomiting. HOME CARE: ?? Rest in bed and follow a [...] diet will also help you lose weight. FOLLOW UP with your doctor. There is a 50% chance that you will have another episode of pain from your gallstones during the next 2 years. Removal of the gallbladder is the treatment of choice to prevent this. Schedule an appointment with your own doctor during the next week to discuss the treatment options. [NOTE: If you had an X-ray, CT scan, ultrasound or EKG (cardiogram), it will be reviewed by a specialist. You will be notified of any new findings that may affect your care.] GET PROMPT MEDICAL ATTENTION if any of the following occur: ?? [...] Yellow color of the skin or eyes Chest, arm, back, neck or jaw pain ?? [phone] Mara Underwood, [address] [place] [address], [place] [address]. All rights reserved. This information is not intended as a substitute for professional medical care. Always follow your healthcare professional's instructions. ED Tests and Procedures: Order Status Amylase Level Completed CBC (includes Auto Differential) Completed Comprehensive Metabolic Panel Completed C-Reactive Protein Completed Lipase Level Completed PT/INR Completed Urinalysis with Culture if Indicated Completed Automated Diff-5 Part Completed US Abdomen Limited Completed Discharge Prescriptions & Home Medications: Medication/Strength Dose Route Frequency Indications/Special Instructions/Comments/Notes traMADol (traMADol 50 mg oral tablet) 1/2 or 1 tab Oral every 6 hours as needed for Pain warfarin (warfarin 5 mg oral tablet) See Instructions 5mg Mon, 2.5mg all other days or as directed by the INR clinic as of 04/17/14 warfarin (warfarin 1 mg oral tablet) See Instructions 1 mg daily or as directed per INR Clinic doxycycline (doxycycline 20 mg oral tablet) 1 tab(s) Oral two times a day multivitamin with minerals (One-A-Day Women 50 Plus oral tablet) 1 tab(s) Oral once a day Misc Prescription (NEW MED) See Instructions Rx mouth wash - daily traMADol (traMADol 50 mg oral tablet) 25 mg Oral every 6 hours as needed for Pain potassium chloride (potassium chloride 10 mEq oral capsule, extended release) 10 meq Oral once a day metoprolol (metoprolol tartrate 25 mg oral tablet) 12.5 mg Oral two times a day furosemide (Lasix 20 mg oral tablet) See Instructions 1 tab(s) PO 2xDay for one wk then one tab daily for one wk albuterol (albuterol CFC free 90 mcg/inh inhalation aerosol) 2 puff(s) Inhalation every 4 hours as needed for Air Hunger acetaminophen (Tylenol 500 mg oral tablet) 2 tab(s) Oral every 6 hours as needed for Pain as needed for pain. Do not exceed eight tabs in 24hrs aspirin (aspirin 81 mg oral tablet) 81 mg Oral once a day multivitamin (multivitamin) 1 tab Oral once a day fluoride topical (Prevident 5000 Plus topical paste) 1 luther Topical two times a day Comment: Attention: If you have any medications at home that are not on this list, DO NOT take them until youcontact your provider for clarificati on. Give a copy of your medication list to your primary care provider. Update your medication list any time medications or doses are changed and carry your medication list at all times in case of emergency. Medication Reconciliation: Reconciliation is a process of identifying the most accurate list of all medications a patient is taking - including name, dosage, frequency, and route - and using this list to provide to the patient information about how to take those medications. DORITA SHEFFIELD or philip has reviewed the home medications you have listed with us. Review the following instructions: You have NOT received any prescriptions and you have told us you are not currently taking any home medications You have NOT received any prescriptions. You have been provided a discharge medications list and you may CONTINUE taking your medications as previously prescribed by your regular providers. You have received the listed prescriptions and BEGIN all listed prescriptions as directed. Since you have listed no home medications, please check with your family doctor if you are taking any other medications. You have received the listed prescriptions and BEGIN all listed prescriptions as directed. Youhave been provided a discharge medications list and you may CONTINUE all home medications as previously prescribed by your regular providers. You have received the listed prescriptions and BEGIN all listed prescriptions as directed. Youhave been provided a discharge medications list. The following CHANGES have been made to your medication list; Otherwise, CONTINUE all home medications as previously prescribed by your regular provider. IMPORTANT: We examined and treated you today [...] Republican/Relationship Date Time Provider Signature Date Time Medication Reconciliation: Reconciliation is a process of identifying the most accurate list of all medications a patient is taking - including name, dosage, frequency, and route - and using this list to provide to the patient information about how to take those medications. DORITA SHEFFIELD or designee has reviewed the home medications you have listed with us. Review the following instructions: You have NOT received any prescriptions and you have told us you are not currently taking any home medications You have NOT received any prescriptions. You have been provided a discharge medications list and you may CONTINUE taking your medications as previously prescribed by your regular providers. You have received the listed prescriptions and BEGIN all listed prescriptions as directed. Since you have listed no home medications, please check with your family doctor if you are taking any other medications. You have received the listed prescriptions and BEGIN all listed prescriptions as directed. Youhave been provided a discharge medications list and you may CONTINUE all home medications as previously prescribed by your regular providers. You have received the listed prescriptions and BEGIN all listed prescriptions as directed. Youhave been provided a discharge medications list. The following CHANGES have been made to your medication list; Otherwise, CONTINUE all home medications as previously prescribed by your regular provider. IMPORTANT: We examined and treated you today [...] Republican/Relationship Date Time Provider Signature Date Time This document has images extracted. Please consider using [employer] for all your patient education needs. Source: [facility] POWERCHART Document Id: [id number] T READER Fallon Moon R.N. - 05/29/2014 12:25 PM CST ED Depart Summary [facility] Emergency Department Clinical Discharge Summary PERSON INFORMATION Name DORITA SHEFFIELD Age 39 Years 1975 12:00 AM Sex Female Language Moroccan PCP TASHA HENRIQUEZ MD Mar[facility] Status [id number] Reason Abdominal pain; abdominal pain Specialty Enc Type Emergency Med Service Emergency Medicine Referred by [facility] ED Discharge 05/29/2014 12:25 PM Tracking Id [id number] Checkout 05/29/2014 12:25 PM Checkin 05/29/2014 8:29 AM Acuity 3 -Urgent Dispo Type * Discharged to Home or Self Care Arrival 05/29/2014 8:29 AM Reg Status Complete LOS 000 03:56 Address: [address] [facility] [phone] Comment: PROVIDER INFORMATION Provider Role Provider Contact Time FALLON MOON PROJECT MANAGER RETAIL Nurse 05/29/14 08:30 BELLA WEST MD ED Provider 05/29/14 08:33 FRANCO HUITRON LPN ED Nurse 05/29/14 12:00 DIAGNOSIS Gallstone Without Obstruction Comment: PATIENT EDUCATION INFORMATION Instructions: BILIARY COLIC w/Gallstone (cnfrmd) Follow up: With: Address: When: General Surgery Clinic Within Today Comments: at 2 pm (check in at 1:45 pm) with Dr Parikh Source: MDSave Document Id: [id number] T READER documented in this encounter Medications at Time of Discharge Medication Sig Dispensed Refills Start Date End Date multivitamin tablet Take 2 tablets by 0 3 mouth daily. FLUORIDE, SODIUM, Apply 1 application 0 3 12/31/2019 DENTAL topically 2 (two) times a day. documented as of this encounter ED Notes Fallon Moon R.N. - 05/29/2014 12:23 PM CST ED Disposition Summary ED Disposition Summary Entered On: 05/29/2014 12:24 CHART READER Performed On: 05/29/2014 12:23 CHART READER by FALLON MOON RN ED Disposition Summary Accompanied By : Mother Mode of Discharge : Ambulatory Transportation : Private vehicle Discharge From ED With : Home Med List Printed Discharge Instructions Given to Patient : Yes Patient Status at Discharge from ED : Improved Comment : Room clear of pt belongings. FALLON MOON RN - 05/29/2014 12:23 CHART READER Source: MDSave Document Id: [id number] CHART READER!9 T READER Fallon Moon R.N. - 05/29/2014 9:03 AM CST ED Treatments and Procedures ED Treatments and Procedures Entered On: 05/29/2014 9:04 CHART READER Performed On: 05/29/2014 9:03 CHART READER by FALLON MOON RN Peripheral IV Peripheral IV Assess/Intervention Grid Peripheral IV #1 IV Activity : Start Number of Attempts : 2 Date of Insertion : 05/29/2014 CHART READER IV Site : Antecubital Laterality : Right Catheter Size : 20 Catheter Type : Protective Site Condition : No complications FALLON MOON RN - 05/29/2014 9:03 CHART READER Source: [facility] POWERSolaria Document Id: [id number] CHART READER!12 T READER Bella West M.D. - 05/29/2014 8:45 AM CST Gallstones with biliary colic Patient: DORITA SHEFFIELD Age: 39 years Sex: Female : 1975 Author: BELLA WEST MD Attachments: None Associated Diagnosis: Gallstone Without Obstruction Basic Information Time seen: Date & time 05/29/2014 08:34:00. History source: Patient, EMS. Arrival mode: Ambulance. Additional information: Chief Complaint from Nursing Triage Note : Chief Complaint Description 05/29/2014 8:31 CHART READER Chief Complaint Description right upper abdominal pain for 2 days. . History of Present Illness 39-year-old female with a history of Down's syndrome presents to the emergency department by ambulance for evaluation of some right upper abdominal pain for 2 days. She states she did start to have some pain yesterday. She has felt a little nauseated. This morning when she woke up the pain was more severe and was severe enough it was causing her to cry. No injury. She is unable to really give a history about if it is worse with eating. She did have some raspberries and had will juice this morning about 7 o'clock for breakfast. Mom did not know of other episodes like this. No fever or chills. No vomiting or diarrhea. She does have a history of some complex heart problems because of the Down's syndrome and has had surgery for that. Nonsmoker. She does live by herself in [facility] Review of Systems Constitutional symptoms: No fever or no sweats. ENMT symptoms: No ear pain or no sore throat. Respiratory symptoms: No shortness of breath, no orthopnea or no cough. Cardiovascular symptoms: No chest pain, no palpitations or no tachycardia. Gastrointestinal symptoms: Negative except as documented in HPI. Genitourinary symptoms: No dysuria. Health Status Allergies: Nonallergic Reactions (Selected) Severity Not Documented Bee Stings- No reactions were documented. Chloramphenicol containing compounds- No reactions were documented. Quinolone antibiotics- No reactions were documented.. Past Medical/ Family/ Social History Surgical history: AV - Atrioventricular valve operation ([id number]) on 03/29/2013 at 38 Years. Comments: 04/05/2013 10:24 - TOOTIE LOPEZ DIRECTOR CLINICAL INFORMATION SERVICES Done at [facility] COLONOSCOPY W BIOPSY - 12/04/12 on 12/04/2012 at 37 Years. RW GENERAL SURG (ABSTRACTED) - 01/15/00 - I and D w debridement, L thigh and leg cellulitis/abscess on 01/15/2000 at 25 Years.. Family history: Aunt: Maternal CA - Breast cancer: onset at 59 . Uncle: Maternal Aneurysm: onset at 64 . Comments: 05/29/2014 12:12 - BELLA WEST MD aortic aneurysm and bulge . Social history: Alcohol use: Denies, Tobacco use: Denies, Drug use: Denies. 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 Physical Examination Vital Signs: Vital Signs 05/29/2014 8:37 CHART READER Temperature Axillary 36.5 DegC Peripheral Pulse Rate 76 /min Respiratory Rate 18 /min SpO2 100 % Systolic Blood Pressure 117 mmHg Diastolic Blood Pressure 76 mmHg . General: Alert and mild distress. Skin: Warm, dry and no rash. Head: Normocephalic and atraumatic. Neck: Supple, no tenderness and no carotid bruit, but no thyromegaly. Eye: Pupils are equal, round and reactive to light, extraocular movements are intact and vision grossly normal. Ears, nose, mouth and throat: Tympanic membranes clear and no pharyngeal erythema or exudate. Cardiovascular: Regular rate and rhythm, No murmur, Normal peripheral perfusion and No edema. Respiratory: Lungs are clear to auscultation, respirations are non-labored and breath sounds are equal. Chest wall: No tenderness. Back: Nontender and Normal range of motion. Musculoskeletal: Normal ROM. normal strength. Gastrointestinal: Soft, Tenderness: Moderate, right flank, right upper quadrant, Guarding: Negative and Rebound: Negative. Neurological: No focal neurological deficit observed. Lymphatics: No lymphadenopathy. Psychiatric: Cooperative and appropriate mood & affect. Medical Decision Making OrdersLaunch Orders Laboratory: Amylase Level (Order Processing): Stat, 05/29/2014 8:45 CHART READER, Once CBC (includes Auto Differential) (Order Processing): Stat, 05/29/2014 8:45 CHART READER, Once Comprehensive Metabolic Panel (Order Processing): Stat, 05/29/2014 8:45 CHART READER, Once C-Reactive Protein (Order Processing): Stat, 05/29/2014 8:45 CHART READER, Once Lipase Level (Order Processing): Stat, 05/29/2014 8:45 CHART READER, Once PT/INR (Order Processing): Stat, 05/29/2014 8:46 CHART READER, Once Urinalysis with Culture if Indicated (Order Processing): Stat, 05/29/2014 8:46 CHART READER, Once, Clean VoidUrine Patient Care: ED Abdominal Pain (Order Processing) Pharmacy: Sodium Chloride 0.9% 1000 mL (Order Processing): 150 mL/hr, IV, Launch Orders Radiology: US Abdomen Limited (Order Processing): 05/29/2014 10:35 CHART READER, severe RUQ, RT flank pain woke her up today; Down's syndrome. ate raspberries, apple juice 0700. labs okay., Stat, Patient Bed, Once, 05/29/2014 10:35 CHART READER, [facility] ED. Results review:Lab results : Lab View 05/29/2014 9:48 CHART READER UUA Source. UA Color Yellow UA Clarity Clear UA Spec Grav 1.004 NA UA pH 6.0 UA Protein Negative mg/dL UA Glucose Negative mg/dL UA Ketones Negative mg/dL UA Bili Negative UA Urobilinogen 0.2 mg/dL UA Blood Negative UA Nitrite Negative UA Leuk Est Negative UR WBC None Seen /HPF UR RBC Occ-2 /HPF UR Squamous Epi Cells Occ-3 /HPF UR Bacteria Present 05/29/2014 9:00 CHART READER Hgb 12.9 g/dL Hct 39.6 % WBC 3.0 x10(9)/L LOW RBC 4.10 x10(12)/L MCV 96.6 fL RDW 13.4 % Platelet 140 x10(9)/L LOW Neutro Absolute 1.89 10(9)/L Lymph Absolute 0.74 x10(9)/L LOW Garfield Absolute 0.33 x10(9)/L Eos Absolute 0.03 x10(9)/L LOW Baso Absolute 0.02 x10(9)/L PT 23.8 second(s) NA INR 2.1 INR HI Sodium Lvl 140 mmol/L Potassium Lvl 4.1 mmol/L Chloride 101 mmol/L CO2 31 mmol/L HI AGAP 9 mmol/L LOW Alkaline Phosphatase 82 U/L Glucose Lvl 89 mg/dL Creatinine 1.08 mg/dL EGFR (MDRD) 56 mL/min/1.73m2 LOW EGFR (MDRD) >60 mL/min/1.73m2 BUN 16 mg/dL Calcium Lvl 9.2 mg/dL Protein Total 7.1 g/dL Albumin Lvl 3.6 g/dL AST 23 U/L ALT 23 U/L Bili Total 0.4 mg/dL Amylase Lvl 67 U/L Lipase Lvl 34 U/L CRP 6.3 mg/L . Radiology results:29-May-2014 11:17:00 Exam: US Abdomen Limited Indications: severe RUQ, RT flank pain woke her up today; Down's syndrome. ate raspberries, apple juice 0700. labs okay. ORIGINAL REPORT - 29-May-2014 11:20:00 PROCEDURE: US Abdomen Limited COMPARISON: None. IMPRESSION: Cholelithiasis. HISTORY: Severe right upper quadrant pain, nausea. FINDINGS: Gallbladder: Multiple shadowing gallstones noted within the gallbladder. No significant gallbladder wall thickening or sonographic Reeves sign to suggest acute cholecystitis. Biliary system: Common duct measures 4.5 mm. Liver: Visible portions appear normal. Pancreas: Visible portions appear normal. Aorta/IVC: Normal. Electronically signed by: Bethel Stark MD 29-May-2014 11:20 . Reexamination/ Reevaluation Time: 05/29/2014 10:10:00 . Interventions: PowerOrders Pharmacy: Zofran (Order Processing): 4 mg, IV Push, Once Toradol (Order Processing): 30 mg, IV Push, Once. Time: 05/29/2014 11:00:00 . Pain status: decreased, Her pain is improved after the Toradol. She did not feel she needed anythingfor the for pain at this time. . Impression and Plan Diagnosis Gallstone Without Obstruction (Discharge, Emergency medicine, Medical) This certainly if is consistent with biliary colic. Unfortunately, the history is a little bit more difficult because of the Down syndrome. Mom states she has a very high pain tolerance so feel she must have had significant pain with this episode. We were able to make arrange to have her see Dr. Escalante, General surgery this afternoon. I did talk with him about her presentation, labs and ultrasound. Plan Condition: Improved, Stable. Disposition: Discharged: to home. Prescriptions: Prescription Dispatcher Motor Vehicle Pharmacy: traMADol 50 mg oral tablet (Prescribe): 1/2 or 1 tab, PO, q6hr, 30 tab(s), PRN, Pain. Patient was given the following educational materials: BILIARY COLIC w/Gallstone (cnfrmd). Follow up with: ; General Surgery [facility] Within Today at 2 pm (check in at 1:45 pm) with Dr Parikh. Counseled: Patient, Family, Regarding diagnosis, Regarding diagnostic results, Regarding treatment plan, Regarding prescription. Orders: Launch Orders Patient Care: Discharge ED Patient (Order Processing): 05/29/2014 11:55 CHART READER, Once. Electronically Signed By: BELLA WEST MD On: 05/29/2014 12:13 PM Modified by and Electronically Signed by: BELLA WEST MD On: 05/29/2014 10:11 AM Source: [facility] POWERCHART Document Id: [id number] T READER Fallon Moon R.N. - 05/29/2014 8:31 AM CST ED Primary Assessment Document Has Been Updated ED Primary Assessment Entered On: 05/29/2014 8:35 CHART READER Performed On: 05/29/2014 8:31 CHART READER by FALLON MOON RN Reason For Visit (As Of: 05/29/2014 08:35:52 CHART READER) Problems(Active) Atrioventricular canal (SNOMED CT :610559377 ) Name of Problem: Atrioventricular canal ; Onset Date:03/26/2013 ; Recorder: TOOTIE LOPEZ LPN; Confirmation: Confirmed ; Classification: Nursing ; Code: 665130032 ; Contributor System: PowerChart ; Last Updated: [...] Nursing ; Code: 286.9 ; Contributor System: [employer] ; Last Updated: 09/05/2013 11:40 CDT ; 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: Active ; Vocabulary: ICD-9-CM DVT, lower extremity (ICD-9-CM :453.40 ) Name of Problem: DVT, lower extremity ; Onset Date: 2006 ; Recorder: TOOTIE LOPEZ LPN; Confirmation: Confirmed ; Classification: Nursing ; Code: 453.40 ; Contributor System: [employer] ; Last Updated: 04/05/2013 10:26 CDT ; Life Cycle Date: 04/05/2013 ; 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: Active ; Responsible Provider: TOOTIE LOPEZ LPN; Vocabulary: ICD-9-CM Impaired Fasting Glucose (ICD-9-CM :790.21 ) Name of Problem: Impaired Fasting Glucose ; Onset Date:07/22/2010 ; Confirmation: Confirmed ; Classification: Medical ; Code: 790.21 ; Contributor System: [employer]UPL[employer] ; Last Updated: 09/21/2013 19:06 CDT ; 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: Active ; Vocabulary: ICD-9-CM ; Comments: - Impaired fasting glucose Irregular Menstrual Cycle (ICD-9-CM :626.4 ) Name of Problem: Irregular Menstrual Cycle ; Onset Date: 07/28/2010 ; Confirmation: Confirmed ; Classification: Medical ; Code: 626.4 ; Contributor System: [employer] ; Last Updated: 09/21/2013 19:06 CDT ; 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: Active ; Vocabulary: ICD-9-CM ; Comments: - Irregular menses Mitral valve regurgitation NOS (ICD-9-CM :424.0 ) Name of Problem: Mitral valve regurgitation NOS ; Recorder: TOOTIE LOPEZ LPN; Confirmation: Confirmed ; Classification: Nursing ; Code: 424.0 ; Contributor System: [employer] ; Last Updated: 04/05/2013 10:25 CDT ; Life Cycle Date: 04/05/2013 ; 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: Active ; Responsible Provider: TOOTIE LOPEZ LPN; Vocabulary: ICD-9-CM ; Comments: 04/05/2013 10:25 - TOOTIE LOPEZ LPN unknown date of dx Mixed Hyperlipidemia (ICD-9-CM :272.2 ) Name of Problem: Mixed Hyperlipidemia ; Onset Date: 07/22/2010 ; Confirmation: Confirmed ; Classification: Medical ; Code: 272.2 ; Contributor System: [facility]_HX_PR_UPLOAD ; Last Updated: 09/21/2013 19:06 CDT ; 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: Active ; Vocabulary: ICD-9-CM ; Comments: - Mixed hyperlipidemia Recommend lifestyle changes (diet, exercise, weight loss) Phlebitis and Thrombophlebitis of Other Deep Vessels of Lower Extremities (ICD-9-CM :451.19 ) Name of Problem: Phlebitis and Thrombophlebitis of Other Deep Vessels of Lower Extremities ; Onset Date: 06/08/2007 ; Confirmation: Confirmed ; Classification: Medical ; Code: 451.19 ; Contributor System: [facility] _HX_PR_UPLOAD ; Last Updated: 11/20/2013 14:52 CDT ; 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: Active ; Vocabulary: ICD-9-CM ; Comments: - Phlebitis and thrombophlebitis of other deep vessels of lower extremities Primary Hypercoagulable State (ICD-9-CM :289.81 ) Name of Problem: Primary Hypercoagulable State ; Onset Date: 01/29/2008 ; Confirmation: Confirmed ; Classification: Medical ; Code: 289.81 ; Contributor System: [facility]_HX_PR_UPLOAD ; Last Updated: 09/21/2013 19:06 CDT ; 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: Active ; Vocabulary: ICD-9-CM ; Comments: - Protein S deficiency With elevated d-dimer Dr. Anna Riley rec: lifelong coumadin Psoriasis (ICD-9-CM :696.1 ) Name of Problem: Psoriasis ; Recorder: TOOTIE LOPEZ LPN; Confirmation: Confirmed ; Classification: Nursing ; Code: 696.1 ; Contributor System: [employer] ; Last Updated: 04/05/2013 10:24 CDT ; [...] LOPEZ LPN unknown date of dx Diagnoses(Active) Abdominal pain Date: 05/29/2014 ; Diagnosis Type: Reason For Visit ; Confirmation: Complaint of ; Clinical Dx: Abdominal pain ; Classification: Medical ; Clinical Service: Emergency medicine ; Code: PNED ; Probability: 0 ; Diagnosis Code: [id number] Triage Chief Complaint Description : right upper abdominal pain for 2 days. Information Given By : Patient, EMS Accompanied By : EMS Mode of Arrival ED : Ambulance Track : Medical Languages : Moroccan Treatments Prior to Arrival : None Are you ? : No Is Patient Female and 13-50 no hysterectomy : Yes Status : Patient denies EVELINNITISHFALLON JOHNS 05/29/2014 8:31 CHART READER Pain Assessment Pain Symptoms : Yes EVELINNITISHFALLON JOHNS 05/29/2014 8:31 CHART READER Pain Pain Assessment Grid Pain 1 Location : Abdomen Laterality : Right Intensity : 10 FALLON MOON 05/29/2014 8:31 CHART READER ИРИНА DCP GENERIC CODE Tracking Acuity : 3 -Urgent Tracking Group : [facility] ED EVELINNITISHFALLON JOHNS 05/29/2014 8:31 CHART READER ID Screen Travel Within Last 21 Days : No EVELINNITISHFALLON JOHNS 05/29/2014 8:31 CHART READER Respiratory Airway : Patent Respirations : Unlabored Respiratory Pattern : Regular Respiratory Detailed Assessment : Yes SARAIFALLON ANGELINE 05/29/2014 8:31 CHART READER Resp Detailed Breath Sounds Assessment Grid BUL : Clear BLL : Clear EVELINNITISHFALLON JOHNS 05/29/2014 8:31 CHART READER Cardiovascular Heart Rhythm : Regular Skin Color : Normal for ethnicity Skin Description : Dry Skin Temperature : Warm EVELINNITISHFALLON JOHNS ANGELINE - 05/29/2014 8:31 CHART READER Neurological Last Well Time Known : Not applicable Level of Consciousness : Alert Orientation : Oriented x 3 Characteristics of Speech : Appropriate for age EVELINNITISHFALLON JOHNS ANGELINE 05/29/2014 8:31 CHART READER ED Psychosocial Affect/Behavior : Calm, Cooperative Domestic Abuse Concerns : None FALLON MOON RN - 05/29/2014 8:31 CHART READER Gastrointestinal Nutrition ED : Adequate FALLON MOON RN - 05/29/2014 8:31 CHART READER Musculoskeletal Fall Prevention Education Provided : Yes FALLON MOON RN - 05/29/2014 8:31 CHART READER Social Habits Tobacco Use/Currently Using : No Smoking Status : Never smoker FALLON MOON RN - 05/29/2014 8:31 CHART READER Source: [employer] Document Id: [id number] CHART READER!55 T READER Libby Elliott C.NEstrella - 05/29/2014 8:30 AM CST ED Pre-Arrival Note Pre-Arrival Summary Name: , Current Date: 05/29/2014 08:30:45 CHART READER Gender: Female Age: 39 Pre-Arrival Type: Ambulance ETA: 05/29/2014 08:55:00 CHART READER Presenting Problem: RUQ abd pain Pre-Arrival User: MAISHA GONZALEZ RN Referring Source: Location: 03 Pre-Arrival Communication Form ruq abd pain for 2days, worse today. P81,R18, sats 100%,BP97/73. HX of heart valve replacement, on blood thinners Vital Signs: Miscellaneous Issues: Source: [employer] Document Id: [id number] T READER documented in this encounter Miscellaneous Notes Miscellaneous - Fallon Moon R.N. - 05/29/2014 12:24 PM CST Valuables/Belongings Valuables/Belongings Entered On: 05/29/2014 12:24 CHART READER Performed On: 05/29/2014 12:24 CHART READER by FALLON MOON RN Valuables/Belongings Comment : Room clear of pt belongings. FALLON MOON RN - 05/29/2014 12:24 CHART READER Source: [facility] POWERCHART Document Id: [id number] CHART READER!3 T READER Miscellaneous - Fallon Moon R.N. - 05/29/2014 8:29 AM CST Facility Charge Ticket 2.0 11.0 DX Facility Charge Ticket 2.0 11.0 DX Entered On: 05/29/2014 12:24 CHART READER Performed On: 05/29/2014 8:29 CHART READER by FALLON MOON RN Facility Charge Ticket 2.0 11.0 DX ED Other Charges : Standard ED Encounter TVL Level Translated RTF : Abdominal pain TVL:4 TVL Level for Facility Charge Ticket : Level 4 Arrival Mode Calc : 1 Mode of Arrival ED : Ambulance [facility] Mode of Arrival Interpreted : BLS/Police [facility] Process Management : None Order Management RTF : Laboratory Amylase Level,05/29/14 08:45,BELLA WEST MD Completed CBC (includes Auto Differential),05/29/14 08:45,BELLA WEST MD Completed Comprehensive Metabolic Panel,05/29/14 08:45,BELLA WEST MD Completed C-Reactive Protein,05/29/14 08:45,BELLA WEST MD Completed Lipase Level,05/29/14 08:45,BELLA WEST MD Completed PT/INR,05/29/14 08:46,BELLA WEST MD Completed Urinalysis with Culture if Indicated,05/29/14 08:46,BELLA WEST MD Completed Automated Diff-5 Part,05/29/14 09:02,BELLA WEST MD Completed CT / MRI / Ultrasound US Abdomen Limited,05/29/14 10:35,BELLA WEST MD Completed [facility] Order Management : CT/MRI/Ultrasound, Lab tests 30 Minutes Critical Care : No Nursing Notes RTF : Nursing Notes ED Primary Assessment,05/29/14 08:31,FALLON MOON RN [facility] Nursing Assessment : Triage and 3-5 nursing assessments [facility] Disposition : Discharge Disposition RTF : discharge [facility] Total Points with Diagnosis Control : 12 [facility] Visit Level : 87804 Level 4 Treatments Prior to Arrival : None FALLON MOON RN - 05/29/2014 12:24 CHART READER Source: [facility] POWERCHART Document Id: [id number] CHART READER!19 T READER documented in this encounter Plan of Treatment Not on filedocumented as of this encounter Procedures Procedure Name Priority Date/Time Associated Comments Diagnosis URINALYSIS, MIDSTREAM, Routine 05/29/2014 9:48 AM Results for this WITH CULTURE IF CHART READER procedure ar e in INDICATED the results section. AUTOMATED Routine 05/29/2014 9:00 AM Results f or this DIFFERENTIAL, B CHART READER procedure ar e in the results section. PROTHROMBIN TIME (PT), Routine 05/29/2014 9:00 AM Results for this P CHART READER procedure are i n the results section. CBC WITH DIFFERENTIAL, Routine 05/29/2014 9:00 AM Results for this B CHART READER procedure are i n the results section. C-REACTIVE PROTEIN Routine 05/29/2014 9:00 AM Res ults for this (CRP), S/P CHART READER procedure are i n the results section. LIPASE, S/P Routine 05/29/2014 9:00 AM Results f or this CHART READER procedure are i n the results section. AMYLASE, TOT, S Routine 05/29/2014 9:00 AM Result s for this CHART READER procedure are i n the results section. COMPREHENSIVE Routine 05/29/2014 9:00 AM Results for this METABOLIC PANEL, S/P CHART READER procedu re are in the results section. documented in this encounter Results (ABNORMAL) Urinalysis, Midstream, with culture if indicated (05/29/2014 9:48 AM CHART READER) [facility] Method Time Signature Source Clean Void POWERCHART Urine HXUr Color Yellow Colorless POWERCHART Clarity Clear Clear POWERCHART Glucose Negative Negative POWERCHART MGDL Protein, Ur, Negative Negative POWERCHART Dip MGDL HXBILIRUBIN Negative Negative POWERCHART Urobilinogen 0.2 0.2 MGDL POWERCHART pH, POCT, Urine 6.0 <5.0 POWERCHART HXBLOOD Negative Negative POWERCHART Ketones, QL(U) Negative Negative POWERCHART MGDL HXNITRITE Negative Negative POWERCHART Leukocyte Negative Negative POWERCHART Esterase Specific 1.004 POWERCHART [place], POCT, U HXUR WBC. None Seen None Seen POWERCHART HPF HXUR RBC. Occ-2 None Seen POWERCHART HPF Squamous Occ-3 (A) None Seen POWERCHART Epithelial HPF HXUR Bacteria, Present (A) None Seen POWERCHART Specimen (Source) Anatomical Collection Method Collection Time Re ceived Time Location / / Volume Laterality Urine 05/29/2014 9:48 AM CHART READER Bella West M.D. LAB URINE ORDERABLES Performing Organization Address City/State/ZIP Code Phon e Number POWERCHART (ABNORMAL) Automated Differential (05/29/2014 9:00 AM CHART READER) [facility] [employer] Method Time Signature Absolute 1.89 1.70 - POWERCHART Neutrophils 7.00 109L Monocytes 0.33 0.30 - POWERCHART 0.90 X109L Eosinophils 0.03 (L) 0.05 - POWERCHART 0.50 X109L Absolute 0.02 0.00 - POWERCHART Basophil 0.30 X109L Lymphocytes 0.74 (L) 0.90 - POWERCHART 2.90 X109L Specimen Anatomical Collection Method Collection Time Receive d Time (Source) Location / / Volume Laterality Blood 05/29/2014 9:00 AM 4 9:00 CHART READER AM CHART READER Bella West M.D. LAB BLOOD ADD-ON Performing Organization Address City/State/ZIP Code Phon e Number POWERCHART (ABNORMAL) PT (Prothrombin Time) with INR (05/29/2014 9:00 AM CHART READER) [facility] [employer] Method Time Signature Prothrombin 23.8 SECONDS POWERCHART Time, P INR 2.1 (H) [...] Time Location / / Volume Laterality Blood 05/29/2014 9:00 AM CHART READER Bella West M.D. LAB BLOOD ADD-ON Performing Organization Address City/State/ZIP Code Phon e Number POWERCHART (ABNORMAL) CBC with Differential (05/29/2014 9:00 AM CHART READER) P athologist Signature Hematocrit 39.6 34.9 - POWERCHART 44.5 Hemoglobin 12.9 12.0 - POWERCHART 15.5 GDL MCV 96.6 82.0 - POWERCHART 98.0 FL Platelet Count 140 (L) 150 - 450 POWERCHART X109L Erythrocytes 4.10 3.90 - POWERCHART 5.03 V6260D HX RDW 13.4 11.9 - POWERCHART 15.5 Leukocytes 3.0 (L) 3.5 - 10.5 POWERCHART X109L Specimen (Source) Anatomical Collection Method Collection Time Re ceived Time Location / / Volume Laterality Blood 05/29/2014 9:00 AM CHART READER Bella West M.D. LAB BLOOD ADD-ON Performing Organization Address City/[facility]/ZIP Code Phon e Number POWERCHART Lipase (05/29/2014 9:00 AM CHART READER) P athologist Signature Lipase, S 34 10 - 73 UL POWERCHART Specimen (Source) Anatomical Collection Method Collection Time Re ceived Time Location / / Volume Laterality Blood 05/29/2014 9:00 AM CHART READER Bella West M.D. LAB BLOOD ADD-ON Performing Organization Address City/State/ZIP Code Phon e Number POWERCHART CRP (C-Reactive Protein) (05/29/2014 9:00 AM CHART READER) P athologist Signature C-Reactive 6.3 <=8.0 MGL POWERCHART Protein (CRP), S Specimen (Source) Anatomical Collection Method Collection Time Re ceived Time Location / / Volume Laterality Blood 05/29/2014 9:00 AM CHART READER Bella West M.D. LAB BLOOD ADD-ON Performing Organization Address City/[facility]/ZIP Code Phon e Number POWERCHART (ABNORMAL) CMP (Comprehensive Metabolic Panel) (05/29/2014 9:00 AM CHART READER) Patholo gist Method Time Signature Chloride, S 101 98 - 107 POWERCHART MMOLL Sodium, S 140 135 - 145 POWERCHART MMOLL Potassium, S 4.1 3.6 - 5.2 POWERCHART MMOLL Anion Gap 9 (L) 10 - 20 POWERCHART MMOLL Alkaline 82 37 - 98 POWERCHART Phosphatase, S UL Alanine 23 7 - 45 UL POWERCHART Amniotransferase, LD Aspartate 23 8 - 43 UL POWERCHART Aminotransferase (AST), S Bilirubin, Total, S 0.4 0.1 - 1.0 POWERCHART MGDL BUN (Blood Urea 16 6 - 21 POWERCHART Nitrogen), S MGDL CO2 Total 31 (H) 22 - 29 POWERCHART MMOLL Creatinine 1.08 0.60 - POWERCHART 1.10 MGDL Total Protein, S 7.1 6.3 - 7.9 POWERCHART GDL Glucose 89 70 - 140 POWERCHART MGDL Calcium, Total, S 9.2 8.6 - POWERCHART 10.3 MGDL Albumin, S 3.6 3.5 - 5.0 POWERCHART GDL eGFR Black/ >60 >=60 POWERCHART Nigerian [id number] 2 HXeGFR (MDRD) 56 (L) >=60 POWERCHART [id number] 2 Comment: Results are in mL/min/1.73m CKD Stage I: ? GFR > 90 CKD Stage II: ?GFR 60 to 89 CKD Stage III: ? GFR 30 to 59 CKD Stage IV: ? GFR 15 to 29 CKD Stage V: ?GFR < 15 or Dialysi s Specimen (Source) Anatomical Collection Method Collection Time Re ceived Time Location / / Volume Laterality Blood 05/29/2014 9:00 AM CHART READER Bella West M.D. LAB BLOOD ADD-ON Performing Organization Address City/State/ZIP Code Phon e Number POWERCHART Amylase, Total (05/29/2014 9:00 AM CHART READER) P athologist Signature Amylase, Total, 67 26 - 102 UL POWERCHART S Specimen (Source) Anatomical Collection Method Collection Time Re ceived Time Location / / Volume Laterality Blood 05/29/2014 9:00 AM CHART READER Bella West M.D. LAB BLOOD ADD-ON Performing Organization Address City/State/ZIP Code Phon e Number POWERCHART documented in this encounter Visit Diagnoses Not on filedocumented in this encounter
--- OUTSIDE RECORDS SUMMARY | 2022-04-25 16:03 | XMS_ITS | Encounter Summary ---
:1975 Author Organization [facility] Address [address] [place] [id number] Care Team Providers Name Role Phone Unavailable Primary Care Provider Unavailable Encounter Details Date Type Department Care Team Description 08/27/2014 Hospital Encounter HX [facility] Marsha Henriquez M.D. [address] [place], [place] [address] (Wo rk) Social History Tobacco Use Types Packs/Day Years Used Date Smoking Tobacco: Never Assessed Sex Assigned at Date Recorded Not on file documented as of this encounter Last Filed Vital Signs Vital Sign Reading Time Taken Comments Blood Pressure 90/60 08/27/2014 10:22 AM [employer]URAL STEEL WORK[employer] Pulse 76 08/27/2014 10:22 AM [employer]URAL STEEL WORKER Temperature - - Respiratory Rate - - Oxygen Saturation - - Inhaled Oxygen Concentration - - Weight 81.4 kg (179 lb 7.3 oz) 08/27/2014 10:22 AM [employer] STE[employer] Height 157 cm (5' 1.81) 08/27/2014 10:22 AM [employer] STEEL WORKER Body Mass Index 33.02 08/27/2014 10:22 AM [employer]URAL STEEL WORKER documented in this encounter Medications at Time of Discharge Medication Sig Dispensed Refills Start Date End Date multivitamin tablet Take 2 tablets by 0 3 mouth daily. FLUORIDE, SODIUM, Apply 1 application 0 3 12/31/2019 DENTAL topically 2 (two) times a day. documented as of this encounter Progress Notes Tasha Henriquez M.D. - 08/27/2014 10:09 AM CST [id number] Jade, she goes by, presents today with sneezing, runny nose with some yellow discharge, cough for about a week. She has been taking NyQuil which helps her. Cough does not keep her up at night. No shortness of breath. No fever or chills. She has had this now for a week or two. PHYSICAL EXAMINATION GENERAL: Patient is alert and oriented, pleasant and cooperative with exam, in no acute distress. VITAL SIGNS: See nursing note. She says she does not get sick very often. No wheezing. ENT: Nares with moderate congestion, a little bit yellow discharge. Oropharynx clear. NECK: Supple without lymphadenopathy. LUNGS: Clear to auscultation bilaterally. Good air movement. No evidence respiratory distress. IMPRESSION/REPORT/PLAN Sinusitis. May have a touch of bronchitis as well. PLAN: Will start Z-Moses as directed. Follow up if symptoms persist or get worse. Tasha Henriquez M.D./erin Electronically Signed By: TASHA HENRIQUEZ MD On: 08/28/2014 07:21 AM Source: [facility] MHSDOLBEYNONRADSYS Document Id: [id number] CTURAL STEEL WORKER documented in this encounter Miscellaneous Notes Miscellaneous - Tasha Henriquez M.D. - 08/27/2014 11:01 AM CST Ambulatory Patient Summary [address] [place], [place] [id number] Visit Information Name: DORITA SHEFFIELD [facility] Number: [id number] Current Date: 08/27/2014 11:01:27 Physicians Attending Provider: TASHA HENRIQUEZ MD Primary [...] Take Indications/Special Instructions/Comments/Notes for Patient Medication Changes/Routing azithromycin (Zithromax Z-Moses 250 mg oral tablet) 2 tablets on day 1, then 1 tablet on days 2-5, Oral, as directed x 5 day(s) New Routed to [address] [phone] fluoride topical (Prevident 5000 Plus topical paste) 1 luther, Topical, two times a day Misc Prescription (NEW MED) See Instructions Rx mouth wash - daily multivitamin (multivitamin) 1 tab, Oral, once a day warfarin (warfarin 5 mg oral tablet) See Instructions 5mg Mon and 2.5mg all other days or as directed by the INR clinic warfarin (warfarin 1 mg oral tablet) See Instructions 1 mg daily or as directed per INR Clinic Stop Taking the Following Medications: Medication list as of 08-27-14 11:01 Attention: If you have any medications at [...] Electronically Signed By: TASHA HENRIQUEZ MD Signed On:27-AUG-2014 11:01:22 Your Allergies & Intolerances Substance Reaction Symptoms [...] Your Upcoming Appointments Date Time Location Provider 09/11/2014 07:15 [facility] Draw 2 Attention: Contact your local Clinic if further appointment detail needed. Your Goals/Additional instructions: Source: [facility] POWERCHART Document Id: [id number] [employer]URAL STEEL WORKER Miscellaneous - Tasha Henriquez M.D. - 08/27/2014 11:01 AM CST Ambulatory Discharge Medication List [facility] [address] [place], [place] [id number] Visit Information Name: DORITA SHEFFIELD [facility] Number: [id number] Visit Date: 08/27/2014 11:01:26 Attending Provider: TASHA HENRIQUEZ MD Primary Care [...] Take Indications/Special Instructions/Comments/Notes for Patient Medication Changes/Routing azithromycin (Zithromax Z-Moses 250 mg oral tablet) 2 tablets on day 1, then 1 tablet on days 2-5, Oral, as directed x 5 day(s) New Routed to [place] [address] [place], [place] [phone] fluoride topical (Prevident 5000 Plus topical paste) 1 luther, Topical, two times a day Misc Prescription (NEW MED) See Instructions Rx mouth wash - daily multivitamin (multivitamin) 1 tab, Oral, once a day warfarin (warfarin 5 mg oral tablet) See Instructions 5mg Mon and 2.5mg all other days or as directed by the INR clinic warfarin (warfarin 1 mg oral tablet) See Instructions 1 mg daily or as directed per INR Clinic Stop Taking the Following Medications: Medication list as of 08-27-14 11:01 Attention: If you have any medications at [...] Electronically Signed By: TASHA HENRIQUEZ MD Signed On:27-AUG-2014 11:01:22 Additional Information: Source: [facility] POWERCHART Document Id: [id number] [employer]URAL STEEL WORKER Miscellaneous - Libby Brambila L.P.N. - 08/27/2014 10:22 AM CST Adult Route Sales Associate Intake/History Adult Route Sales Associate Intake/History Entered On: 08/27/2014 10:24 [employer]URAL STEEL WORKER Performed On: 08/27/2014 10:22 STRUCTURAL STEEL WORKER by LIBBY BRAMBILA LPN Intake Ambulatory Intake Additional Information : mother who isn't with pt is her legal gaurdian is on vacation, we are to call her when back to set up pap and mammo and ask when she got her flu shot LIBBY BRAMBILA LPN - 08/27/2014 10:24 STRUCTURAL STEEL WORKER Chief Complaint : sneezing,runny nose and cough for about a week Temperature Core : 36.4 DegC(Converted to: 97.5 DegF) (LOW) Peripheral Pulse Rate : 76 /min Systolic Blood Pressure : 90 mmHg (LOW) Diastolic Blood Pressure : 60 mmHg NIBP Mean : 70 mmHg Height : 157 cm(Converted to: 5 ft 2 inch(es), 62 inch(es)) Actual Weight : 81.4 kg(Converted to: 179 lb 7 oz) Dosing Weight Clinic : 81.4 kg Clinic BSA : 1.88 Body Mass Index : 33.02 kg/m2 LIBBY BRAMBILA LPN - 08/27/2014 10:22 [employer]URAL STEEL WORKER General Info Information Given By : Patient Languages : Samoan Is Patient Female and 13-50 no hysterectomy : Yes Status : Patient denies Are you ? : No LIBBY BRAMBILA LPN - 08/27/2014 10:22 [employer]UCTURAL STEEL WORKER Subjective Pain Symptoms : No LIBBY BRAMBILA LPN - 08/27/2014 10:22 STRU[employer]URAL STEEL WORKER Dependent Habits Tobacco Use/Currently Using : No Exposure to Tobacco Smoke : Other: never smoker Smoking Status : Never smoker LIBBY BRAMBILA LPN - 08/27/2014 10:22 STRUCTURAL STEEL WORKER ID Screen Drug Resistant Organism : No Travel Within Last 21 Days : No Contact with someone with Ebola : No LIBBY BRAMBILA LPN - 08/27/2014 10:22 STRUCTURAL STEEL WORKER Source: [employer] Document Id: [id number] STRUCTURAL STEEL WORKER!3 CTURAL STEEL WORKER Miscellaneous - Libby Brambila L.P.NMichael - 08/27/2014 10:20 AM CST Health Assessment Health Assessment Entered On: 08/27/2014 10:21 [employer]URAL STEEL WORKER Performed On: 08/27/2014 10:20 STRU[employer]URAL STEEL WORKER by LIBBY BRAMBILA LPN Health Assessment Complete Health Assessment Complete or Modified : Annual Health Assessment Annual Health Assessment Completed : Yes LIBBY BRAMBILA LPN - 08/27/2014 10:20 STRUCTURAL STEEL WORKER Nutrition Nutrition Risk Factors by History Adult : None LIBBY BRAMBILA LPN - 08/27/2014 10:20 STRUCTURAL STEEL WORKER Functional Current Daily Living Assistance : None LIBBY BRAMBILA LPN - 08/27/2014 10:20 STRUCTURAL STEEL WORKER Dependent Habits Tobacco Use/Currently Using : No Exposure to Tobacco Smoke : Other: never smoker Smoking Status : Never smoker LIBBY BRAMBILA LPN - 08/27/2014 10:20 STRUCTURAL STEEL WORKER Psychosocial Domestic Abuse Concerns : None Holiness Preference : No qualifying data available. LIBBY BRAMBILA LPN - 08/27/2014 10:20 STRUCTURAL STEEL WORKER Advance Directive Advanced Directives : No Advance Directive Additional Information : No LIBBY BRAMBILA LPN - 08/27/2014 10:20 STRUCTURAL STEEL WORKER Educ Needs Learning Style Preference Adult Grid Patient : None Family : None LIBBY BRAMBILA LPN - 08/27/2014 10:20 STRUCTURAL STEEL WORKER Source: [facility] POWERCHART Document Id: [id number] STRUCTURAL STEEL WORKER!22 CTURAL STEEL WORKER documented in this encounter Plan of Treatment Not on filedocumented as of this encounter Visit Diagnoses Not on filedocumented in this encounter
--- OUTSIDE RECORDS SUMMARY | 2022-04-25 16:03 | XMS_ITS | Encounter Summary ---
:1975 Author Organization [facility] Address [address] [place] [address] Care Team Providers Name Role Phone Unavailable Primary Care Provider Unavailable Encounter Details Date Type Department Care Team Description 05/29/2014 Hospital Encounter HX [facility] Marsha Henriquez M.D. [address] [place], [place] [address] (Wo rk) Social History [...] Notes Miscellaneous - Wali Zapata, R.N. - 06/05/2014 9:08 AM CST Anticoagulation Patient Intake Anticoagulation Patient Intake Entered On: 06/05/2014 9:14 CUFF STITCHER Performed On: 06/05/2014 9:08 CUFF STITCHER by WALI ZAPATA RN Plan INR goal range : 2.0 - 3.0 Duration of Therapy : Lifelong Tablet Size : 5 mg WALI ZAPATA RN - 06/05/2014 9:08 CUFF STITCHER Anticoagulation Management Plan Grid Date : 09/05/2013 [...] completed by : WALI Dowd RN - 06/05/2014 9:08 WALI HARDWICK RN - 06/05/2014 9:08 WALI HARDWICK RN - 06/05/2014 9:08 WALI HARDWICK RN - 06/05/2014 9:08 CUFF STITCHER Date : 12/26/2013 CDT 01/30/2014 CDT 03/06/2014 [...] completed by : WALI Chau RN - 06/05/2014 9:08 WALI HARDWICK RN - 06/05/2014 9:08 WALI HARDWICK RN - 06/05/2014 9:08 WALI HARDWICK RN - 06/05/2014 9:08 CUFF STITCHER Date : 03/20/2014 CDT 03/27/2014 CDT 04/10/2014 [...] lackey LM /pharmacy WALI ZAPATA RN - 06/05/2014 9:08 CUFF STITCHER WALI ZAPATA RN - 06/05/2014 9:08 CUFF STITCHER WALI ZAPATA RN - 06/05/2014 9:08 WALI HARDWICK RN - 06/05/2014 9:08 CUFF STITCHER Date : 04/17/2014 CDT 04/24/2014 CDT 05/01/2014 CUFF STITCHER 05/15/2014 CUFF STITCHER Location of INR sample : Lab Lab [...] will trynoted dose called to mom Fabiola [phone] called to Fabiola/no changes Called to mother/Fabiola, not awareof any changes Recommend Recheck : One week One week Two weeks Two weeks Plan completed by : MARIA GUADALUPE FITCH OZZY WALI LEES RN - 06/05/2014 9:08 CUFF STITCHER WALI ZAPATA RN - 06/05/2014 9:08 CUFF STITCHER WALI ZAPATA RN - 06/05/2014 9:08 CUFF STITCHER WALI ZAPATA RN - 06/05/2014 9:08 CUFF STITCHER Date : 06/03/2014 CUFF STITCHER 06/05/2014 CUFF STITCHER Location of INR sample : Lab Type [...] to surgery (06/06) with no bridging. Called mother, Diane. Swann will be staying in [place] 2wks post-surgery & have INR drawn there. She will resume normal dosing after surgery. Recommend Recheck : Other: depending on Dr. Henriquez's preop. Other: 06/18 Plan completed by : WALI YAO RN - 06/05/2014 9:08 CUFF STITCHER WALI ZAPATA RN - 06/05/2014 9:08 CUFF STITCHER [facility] Document Id: [id number] CUFF STITCHER!178 STITCHER Miscellaneous - Wali Zapata RViktor - 06/03/2014 11:07 AM CST *General Message Document Contains Addenda Addendum by WALI ZAPATA RN on 05 June 2014 09:22:56 CUFF STITCHER Called mother, Fabiola. She will begin holding Hue's coumadin 06/06/14. Arranged re-check INR 06/18/14 in [place]. They will fax results to INR clinic. Addendum by WALI ZAPATA RN on 04 June 2014 08:28:29 CUFF STITCHER From: WALI ZAPATA RN ( Oncology/Infusion Therapy Nurse) To: Anticoagulation Nurse; Sent: 06/04/2014 08:28:29 CUFF STITCHER Subject: FW: *General Message Addendum by TASHA HENRIQUEZ MD on 04 June 2014 08:10:06 CUFF STITCHER From: TASHA HENRIQUEZ MD To: Oncology/Infusion Therapy Nurse; Cc: Anticoagulation Nurse; Sent: 06/04/2014 08:10:06 CUFF STITCHER Subject: RE: *General Message does not require anticoagulation bridging and is to stop warfarin 5 days before surgery. thanks. From: WALI ZAPATA RN ( Oncology/Infusion Therapy Nurse) To: TASHA HENRIQUEZ MD; Cc: Anticoagulation Nurse; Sent: 06/03/2014 11:07:08 CUFF STITCHER Subject: *General Message This patient has a pre-op with you 06/09 for a cholecystectomy with Dr. Alcantar 06/11. She is on Coumadin and is in the INR clinic. Since her pre-op is only 2 days prior to surgery, I thought we shouldget advance orders from you on when she needs to stop and re-start Coumadin and if bridging is necessary. Thank you. Source: [facility] POWERCHART Document Id: [id number] Electronically signed by Conversion, [facility] Wringer Machine Operator [id number] at 11/22/2016 9:43 PM CDT Miscellaneous - Wali Zapata, R.N. - 06/03/2014 10:59 AM CST Anticoagulation Patient Intake Anticoagulation Patient Intake Entered On: 06/03/2014 11:04 CUFF STITCHER Performed On: 06/03/2014 10:59 CUFF STITCHER by WALI ZAPATA RN Plan INR goal range : 2.0 - 3.0 Duration of Therapy : Lifelong Tablet Size : 5 mg WALI ZAPATA RN - 06/03/2014 10:59 CUFF STITCHER Anticoagulation Management Plan Grid Date : 09/05/2013 [...] darya BURGESS JM WALI Cortez RN - 06/03/2014 10:59 CUFF STITCHER WALI ZAPATA RN - 06/03/2014 10:59 CUFF STITCHER WALI ZAPATA RN - 06/03/2014 10:59 CUFF STITCHER WALI ZAPATA RN - 06/03/2014 10:59 CUFF STITCHER Date : 12/26/2013 CDT 01/30/2014 CDT 03/06/2014 [...] 03/10/2014 Other: 03/20/14 Plan completed by : WAIL Chau RN - 06/03/2014 10:59 CUFF STITCHER WALI ZAPATA RN - 06/03/2014 10:59 CUFF STITCHER WALI ZAPATA RN - 06/03/2014 10:59 WALI HARDWICK RN - 06/03/2014 10:59 CUFF STITCHER Date : 03/20/2014 CDT 03/27/2014 CDT 04/10/2014 [...] by : darya lackey [facility]/pharmacy WALI ZAPATA RN - 06/03/2014 10:59 CUFF STITCHER WALI ZAPATA RN - 06/03/2014 10:59 CUFF STITCHER WALI ZAPATA RN - 06/03/2014 10:59 CUFF STITCHER WALI ZAPATA RN - 06/03/2014 10:59 CUFF STITCHER Date : 04/17/2014 CDT 04/24/2014 CDT 05/01/2014 CUFF STITCHER 05/15/2014 CUFF STITCHER Location of INR sample : Lab Lab [...] will trynoted dose called to mom Fabiola [phone] called to Fabiola/no changes Called to mother/Fabiola, not awareof any changes Recommend Recheck : One week One week Two weeks Two weeks Plan completed by : WALI DAVISON RN - 06/03/2014 10:59 CUFF STITCHER WALI ZAPATA RN - 06/03/2014 10:59 CUFF STITCHER WALI ZAPATA RN - 06/03/2014 10:59 CUFF STITCHER WALI ZAPATA RN - 06/03/2014 10:59 CUFF STITCHER Date : 06/03/2014 CUFF STITCHER Location of INR sample : Lab Type of Sample : Venous INR Result : 2.1(05/29) Warfarin Dose : 5mg Mon and 2.5mg all other days Total Weekly Warfarin Dose : 20 Comment : Processed 06/03/14 due to result not received in INR clinic. Pt was in ER 05/29. Having cholecystectomy 06/11. Will have pre-op 06/09. Will message Dr. Henriquez to check about when to stop coumadin and if bridging needed. Called to mother/Fabiola. Recommend Recheck : Other: depending on Dr. Henriquez's preop. 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 : DVT Lower, Other: Deep Phlebitis-Leg NEC CHADS2 Score Date : 09/05/2013 CDT WALI ZAPATA RN - 06/03/2014 10:59 CUFF STITCHER Changes / Problems Changes/Problems Since Last Visit : None Been Scheduled For : Surgical Procedures Missed Coumadin Doses : None Change In Intake : None Change In Medication : None Have You Had : None Plans to Travel : No WALI ZAPATA RN - 06/03/2014 10:59 CUFF STITCHER [facility] [place] Document Id: [id number] CUFF STITCHER!186 STITCHER documented in this encounter Plan of Treatment Not on filedocumented as of this encounter Visit Diagnoses Not on filedocumented in this encounter
--- OUTSIDE RECORDS SUMMARY | 2022-04-25 16:03 | XMS_ITS | Encounter Summary ---
:1975 Author Organization [facility] Address [address] [place] [address] Care Team Providers Name Role Phone Unavailable Primary Care Provider Unavailable Encounter Details Date Type Department Care Team Description 09/25/2014 Hospital Encounter HX [facility] Marsha Henriquez M.D. [address] [place], [place] [address] (Wo rk) Social [...] - - Height 157 cm (5' 1.81) 09/25/2014 6:54 AM CDT Body Mass Index - - documented in this encounter Medications at Time of Discharge Medication Sig Dispensed Refills Start Date End Date multivitamin tablet Take 2 tablets by 0 3 mouth daily. FLUORIDE, SODIUM, Apply 1 application 0 3 12/31/2019 DENTAL topically 2 (two) times a day. documented as of this encounter Miscellaneous Notes Miscellaneous - Khadar Banda, RMichaelN. - 09/25/2014 4:08 PM CDT Anticoagulation Patient Intake Anticoagulation Patient Intake Entered On: 09/25/2014 16:09 CDT Performed On: 09/25/2014 16:08 CDT by KHADAR BANDA RN Plan INR goal range : 2.0 - 3.0 Duration of Therapy : Lifelong Tablet Size : 5 mg KHADAR BANDA RN - 09/25/2014 16:08 CDT KHADAR BANDA RN - 09/25/2014 16:08 CDT Anticoagulation Management Plan Grid Date : [...] darya BURGESS JM KHADAR Mae RN - 09/25/2014 16:08 KHADAR HILL RN - 09/25/2014 16:08 CDT KHADAR BANDA RN - 09/25/2014 16:08 CDT KHADAR BADNA RN - 09/25/2014 16:08 CDT Date : 12/26/2013 CDT 01/30/2014 CDT [...] completed by : KHADAR Cho RN - 09/25/2014 16:08 CDT KHADAR BANDA RN - 09/25/2014 16:08 CDT KHADAR BANDA RN - 09/25/2014 16:08 CDT KHADAR BANDA RN - 09/25/2014 16:08 CDT Date : 03/20/2014 CDT 03/27/2014 CDT [...] Other: Plan completed by : darya lackey [facility]/pharmacy KHADAR BANDA RN - 09/25/2014 16:08 CDT KHADAR BANDA RN - 09/25/2014 16:08 CDT KHADAR BANDA RN - 09/25/2014 16:08 CDT KHADAR BANDA RN - 09/25/2014 16:08 CDT Date : 04/17/2014 CDT 04/24/2014 CDT 05/01/2014 BRAND MGR 05/15/2014 BRAND MGR Location of INR sample : Lab Lab [...] will trynoted dose called to mom Fabiola [phone] called to Fabiola/no changes Called to mother/Fabiola, not awareof any changes Recommend Recheck : One week One week Two weeks Two weeks Plan completed by : KHADAR HACKETT RN - 09/25/2014 16:08 CDT KHADAR BANDA RN - 09/25/2014 16:08 CDT KHADAR BANDA RN - 09/25/2014 16:08 CDT KHADAR BANDA RN - 09/25/2014 16:08 CDT Date : 06/03/2014 BRAND MGR 06/05/2014 BRAND MGR 06/10/2014 BRAND MGR 06/11/2014 BRAND MGR Location of INR sample : Lab Type [...] Fabiola granados. Hue will be staying in [place] 2wks post-surgery & have INR drawn there. [...] lovenox tomorrow AM as ordered. INR in [place] for next several weeks as pt will be recovering there. Recommend Recheck : Other: depending on Dr. Henriquez's preop. Other: 06/18 Other: 06/13/14 Plan completed by : KHADAR SANDERS RN - 09/25/2014 16:08 CDT KHADAR BANDA RN - 09/25/2014 16:08 CDT KHADAR BANDA RN - 09/25/2014 16:08 CDT KHADAR BANDA RN - 09/25/2014 16:08 CDT Date : 06/14/2014 BRAND MGR 06/14/2014 BRAND MGR 06/16/2014 BRAND MGR 06/23/2014 BRAND MGR Location of INR sample : Clinic Lab Lab Type of Sample : Venous Venous INR Result : 1.3 on 06/13 2.4 faxed from lab 2.0 Warfarin Dose : (pt took 2.5mg 06/13) 5mg Sat and 5mg Sun (06/14 and 06/15) 5mg Mon and 2.5mg all other days 5mg Mon and 2.5mg all other days Total Weekly Warfarin Dose : 20 20 Comment : [place] lab called with INR result from 06/13, reported they left a message with Dr. Henriquez and hadn't heard back, spoke with mother, Fabiola, and gave doses, continue Lovenox and repeat INR 06/16, message left with INR clinic in to contact CF Please contact [place] lab on 06/16 for result and may call Fabiola at [phone] with instructions call to Fabiola/will stop Lovenox [...] by : KHADAR Mattson LM RN - 09/25/2014 16:08 CDT KHADAR BANDA RN - 09/25/2014 16:08 CDT KHADAR BANDA RN - 09/25/2014 16:08 CDT KHADAR BANDA RN - 09/25/2014 16:08 CDT Date : 07/10/2014 BRAND MGR 07/17/2014 BRAND MGR 07/31/2014 BRAND MGR 09/11/2014 CDT Location of INR sample : [...] completed by : KHADAR Dumont RN - 09/25/2014 16:08 CDT KHADAR BANDA RN - 09/25/2014 16:08 CDT KHADAR BANDA RN - 09/25/2014 16:08 CDT KHADAR BANDA RN - 09/25/2014 16:08 CDT Date : 09/12/2014 CDT 09/25/2014 CDT Location of INR sample : Lab Type of Sample : Venous INR Result : 1.7 Warfarin Dose : 5mg Mon/Thurs, 2.5mg all other days Total Weekly Warfarin Dose : 22.5 Comment : Per mom, pt on Zpak last wk, no other changes, best to call mom on cell phone # per Mom/nochanges or missed doses Recommend Recheck : Two weeks One week Plan completed by : KHADAR Conroy RN - 09/25/2014 16:08 CDT KHADAR BANDA RN - 09/25/2014 16:12 CDT Anticoagulation Assessment / History Visit : Phone management Plan of Care Date : 01/29/2008 CDT Primary Physician Anticoagulation : TASHA HENRIQUEZ MD 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 : DVT Lower, Other: Deep Phlebitis-Leg NEC CHADS2 Score Date : 09/05/2013 CDT KHDAAR BANDA RN - 09/25/2014 16:12 CDT Changes / Problems Changes/Problems Since Last Visit : None Been Scheduled For : None Missed Coumadin Doses : None Change In Intake : None Change In Medication : None Have You Had : None Plans to Travel : No KHADAR BANDA RN - 09/25/2014 16:12 CDT Source: [facility] Document Id: [id number] CDT!289 Miscellaneous - Wali Mcclellan - 09/25/2014 10:26 AM CDT Results Notification From: WALI MCCLELLAN RN ( Anticoagulation Nurse) To: Anticoagulation Nurse; Sent: 09/25/2014 10:26:44 CDT Show up: 09/25/2014 10:27:00 CDT Subject: Results Notification Results: Date Result Name Value Ref Range 09/25/2014 08:06 PT 18.5 second(s) 09/25/2014 08:06 INR 1.7 INR (0.8 - 1.1) Source: [facility] Document Id: [id number] documented in this encounter Plan of Treatment Not on filedocumented as of this encounter Procedures Procedure Name Priority Date/Time Associated Comments Diagnosis PROTHROMBIN TIME Routine 09/25/2014 8:06 AM Resul ts for this (PT), P CDT procedure are i n the results section. documented in this encounter Results (ABNORMAL) PT (Prothrombin Time) with INR (09/25/2014 8:06 AM CDT) Patholo gist Method Time Signature Prothrombin 18.5 SECONDS POWERCHART Time, P INR 1.7 (H) 0.8 - 1.1 POWERCHART INR Comment: Recommended INR for prophylaxis/treatmen t of Venous Thrombosis, Pulmonary Embolism, Myocardial Infarction, and Embolism from Atrial Fibrillation is 2.0- 3.0 (Standard Therapy) Recommended INR for Mechanical Heart Tejal ves and recurrent Systemic Embolism is 2.5-3.5 (Intensive Therapy) Specimen (Source) Anatomical Collection Method Collection Time Re ceived Time Location / / Volume Laterality Blood 09/25/2014 8:06 AM CDT Tasha Henriquez M.D. LAB BLOOD ADD-ON Performing Organization Address City/State/ZIP Code Phon e Number POWERCHART documented in this encounter Visit Diagnoses Not on filedocumented in this encounter
--- OUTSIDE RECORDS SUMMARY | 2022-04-25 16:03 | XMS_ITS | Encounter Summary ---
:1975 Author Organization [facility] Address [address] [place] [address] Care Team Providers Name Role Phone Unavailable Primary Care Provider Unavailable Encounter Details Date Type Department Care Team Description 06/09/2014 Hospital Encounter HX [facility] Eddi Parikh SURGCLINI M.D. [address] [place] [address] (Wo rk) Social History Tobacco [...] this encounter Miscellaneous Notes Telephone Encounter - Noah Chu RViktor - 06/09/2014 11:09 AM CUT OFF MACHINE OPERATOR laparoscopic cholecystectomy, possible open 06-11-14 From: NOAH CHU RN Sent: 06/09/2014 11:09:19 CUT OFF MACHINE OPERATOR Subject: laparoscopic cholecystectomy, possible open 06-11-14 SURGERY NURSE TRAFFIC OPERATIONS MANAGER Skin Alert Assessment: Complete this section only if the patient is greater than or equal to 18 y/o BMI <19 or >40: (x_) No (_) Yes Documented risk factors that indicate higher risk for pressure ulcer? (x_) No (_) Yes Is patient chair-bound or unable to reposition themselves? (x_) No (_) Yes Do you have impaired sensation? (x_) No (_) Yes Anesthesia Risk Assessment: Do you use a CPAP or BiPAP machine? (x_) No (_) Yes: patient instructed to bring day of surgery (_) Yes Have you been told that it is difficult to place a breathing tube in your airway (intubate)? (_x) No(_) Yes Comment: _ Do you or a family member have a history of high fever after anesthesia (malignant hyperthermia)? (_x) No (_) Yes Comment: _ Do you have any personal or family history of severe allergic or anaphylactic reactions to anesthetic agents? (_x) No (_) Yes Comment: _ Do you have difficulties lying flat? (_x) No (_) Yes Comment: _ Do you have any mormonism or other objection to having a blood transfusion? (_x)No (_)Yes Scheduling Follow-Up: Automotive Airconditioning Mechanic requested: (_x) N/A (_) Yes Comment: _ Ortho Patients Only:NA Total Joint Class scheduled: (_) N/A Date: _ Knee Manipulation-CPM set-up: (_) N/A (_) Yes Comment: _ If OT apt needed - setup one hour after clinic post-op: (_) N/A (_) Yes Back brace fitted: (_) N/A (_) Yes Pre-op teaching reviewed with patient including instruction on: -Must shower the night before surgery and the morning of surgery to reduce the risk of infection. -For procedures above the shoulders patient must wash their hair the night before or the morning of surgery and then no styling products in the hair. -tractor driver required for same day surgery patients, patient should not be alone for 24 hours after surgery and most patients are discharged 1-3 hours after surgery -If there are changes in health prior to surgery notify department performing surgery -where and how to check in on day of surgery -what to bring with on the day of the surgery -Managing Your Pain handout reviewed with patient and given to the patient in writing. Fasting guidelines: (_x)Adults and children over 2 years old - Nothing to eat or drink after midnight the day before surgery with the exception that clear liquids only are allowed until 4 hours before arrival time. At 4 hours before arrival time nothing by mouth (_)Children under 2 years old - Nothing to eat or drink after midnight the day before surgery with the following exceptions: Patient and/or parent/guardian informed that failure to follow the fasting guidelines may result in case cancellation. Planning for surgery: -All surgery patients must have a pre-op physical within 30 days of surgery , - Surgery brochure given or mailed to patient if they have not received one already, reviewed surgical site infection teaching sheet, reviewed orthopedic pain management letter for all orthopedic cases and offered patient guided imagery CD (_)Total Joint Surgery: Total Joint Class (good for one year) and gave patient hibiclens packet and reviewed preop showering instructions (_)Eyelid surgery: Preparing for you eyelid and tear duct surgery instruction sheet reviewed and given to patient in writing. (_)Reviewed parental presence program (_)Reviewed tonsillectomy teaching sheet (_)Reviewed ear tube teaching sheet (_)Reviewed Rotator Cuff Repair Education and copy given to patient in writing Post op appointments: 1st po with surgeon or physician professional nursing assistant: (x_) made (_)TBD (_)Audiology appointment (PE tubes), (_)2 days post op ultrasound to r/o DVT (VNUS closure), (_)PO OT appt made (Hand surgery if requested) Phone appt completed w castro Harper. Source: [facility] POWERCHART Document Id: [id number] Electronically signed by Conversion, [facility] Medtronics Technician [id number] at 11/22/2016 9:43 PM CDT documented in this encounter Plan of Treatment Not on filedocumented as of this encounter Visit Diagnoses Not on filedocumented in this encounter
--- OUTSIDE RECORDS SUMMARY | 2022-04-25 16:03 | XMS_ITS | Encounter Summary ---
:1975 Author Organization [facility] Address [address] [place] [address] Care Team Providers Name Role Phone Unavailable Primary Care Provider Unavailable Encounter Details Date Type Department Care Team Description 07/17/2014 Hospital Encounter [facility]X [facility] Marsha Henriquez M.D. [address] [place], [place] [address] (Wo rk) Social History [...] - - Height 157 cm (5' 1.81) 07/17/2014 5:21 AM LABORATORY ASST Body Mass Index - - documented in this encounter Medications at Time of Discharge Medication Sig Dispensed Refills Start Date End Date multivitamin tablet Take 2 tablets by 0 3 mouth daily. FLUORIDE, SODIUM, Apply 1 application 0 3 12/31/2019 DENTAL topically 2 (two) times a day. documented as of this encounter Miscellaneous Notes Miscellaneous - Wali Zapata, R.N. - 07/17/2014 10:11 AM CST Anticoagulation Patient Intake Anticoagulation Patient Intake Entered On: 07/17/2014 10:17 LABORATORY ASST Performed On: 07/17/2014 10:11 LABORATORY ASST by WALI ZAPATA RN Plan INR goal range : 2.0 - 3.0 Duration of Therapy : Lifelong Tablet Size : 5 mg WALI ZAPATA RN - 07/17/2014 10:11 LABORATORY ASST Anticoagulation Management Plan Grid Date : 09/05/2013 [...] darya BURGESS JM WALI Cortez RN - 07/17/2014 10:11 WALI HARDWICK RN - 07/17/2014 10:11 WALI HARDWICK RN - 07/17/2014 10:11 WALI HARDWICK RN - 07/17/2014 10:11 LABORATORY ASST Date : 12/26/2013 CDT 01/30/2014 CDT 03/06/2014 [...] completed by : WALI Chau RN - 07/17/2014 10:11 LABORATORY ASST WALI ZAPATA RN - 07/17/2014 10:11 WALI HARDWICK RN - 07/17/2014 10:11 WALI HARDWICK RN - 07/17/2014 10:11 LABORATORY ASST Date : 03/20/2014 CDT 03/27/2014 CDT 04/10/2014 [...] Plan completed by : darya lackey [facility] WALI ZAPATA RN - 07/17/2014 10:11 LABORATORY ASST WALI ZAPATA RN - 07/17/2014 10:11 WLAI HARDWICK RN - 07/17/2014 10:11 WALI HARDWICK RN - 07/17/2014 10:11 LABORATORY ASST Date : 04/17/2014 CDT 04/24/2014 CDT 05/01/2014 LABORATORY ASST 05/15/2014 LABORATORY ASST Location of INR sample : Lab Lab [...] will trynoted dose called to mom Fabiola [phone] called to Fabiola/no changes Called to mother/Fabiola, not awareof any changes Recommend Recheck : One week One week Two weeks Two weeks Plan completed by : WALI DAVISON RN - 07/17/2014 10:11 WALI HARDWICK RN - 07/17/2014 10:11 WALI HARDWICK RN - 07/17/2014 10:11 WALI HARDWICK RN - 07/17/2014 10:11 LABORATORY ASST Date : 06/03/2014 LABORATORY ASST 06/05/2014 LABORATORY ASST 06/10/2014 LABORATORY ASST 06/11/2014 LABORATORY ASST Location of INR sample : Lab Type [...] Fabiola granados. Hue will be staying in [place] 2wks post-surgery & have INR drawn there. [...] completed by : WALI FONTAINE RN - 07/17/2014 10:11 WALI HARDWICK RN - 07/17/2014 10:11 WALI HARDWICK RN - 07/17/2014 10:11 WALI HARDWICK RN - 07/17/2014 10:11 LABORATORY ASST Date : 06/14/2014 LABORATORY ASST 06/14/2014 LABORATORY ASST 06/16/2014 LABORATORY ASST 06/23/2014 LABORATORY ASST Location of INR sample : Clinic Lab Lab Type of Sample : Venous Venous INR Result : 1.3 on 06/13 2.4 faxed from lab 2.0 Warfarin Dose : (pt took 2.5mg 06/13) 5mg Sat and 5mg Sun (06/14 and 06/15) 5mg Mon and 2.5mg all other days 5mg Mon and 2.5mg all other days Total Weekly Warfarin Dose : 20 20 Comment : [place] lab called with INR result from 06/13, reported they left a message with Dr. Henriquez and hadn't heard back, spoke with mother, Fabiola, and gave doses, continue Lovenox and repeat INR 06/16, message left with INR clinic in to contact CF Please contact [place] lab on 06/16 for result and may call Fabiola at [phone] with instructions call to Fabiola/will stop Lovenox injections and take noted dose/pt has an appt here in [place] 06/23 so will do lab appt here that day Called to Fabiola/ [facility]ue will be back at [facility] by next draw. will have done on . no changes to meds/diet. Recommend Recheck : Two days One week Two weeks Plan completed by : WALI Senior LM, RN - 07/17/2014 10:11 WALI HARDWICK RN - 07/17/2014 10:11 LABORATORY ASST WALI ZAPATA RN - 07/17/2014 10:11 WALI HARDWICK RN - 07/17/2014 10:11 LABORATORY ASST Date : 07/10/2014 LABORATORY ASST 07/17/2014 LABORATORY ASST Location of INR sample : Lab Lab Type of Sample : Venous Venous INR Result : 1.9 2.2 Warfarin Dose : 5mg 07/10, then 5mg Mon, 2.5mg all other days 5mg Mon and 2.5mg all other days Total Weekly Warfarin Dose : 20 20 Comment : called to Fabiola/Mom Called to Fabiola/Mom. No changes. 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 - 07/17/2014 9:58 AM CST Results Notification Document Contains Addenda Addendum by AWLI ZAPATA RN on 17 July 2014 10:18:29 LABORATORY ASST Orders called to mom/Fabiola. From: KHADAR BANDA RN ( Anticoagulation Nurse) To: AYDE Anticoagulation Nurse; Sent: 07/17/2014 09:58:16 LABORATORY ASST Show up: 07/17/2014 09:59:00 LABORATORY ASST Subject: Results Notification Results: Date Result Name Value Ref Range 07/17/2014 08:10 PT 24.2 second(s) 07/17/2014 08:10 INR 2.2 INR (0.8 - 1.1) Source: [facility] POWERCHART Document Id: [id number] Electronically signed by Conversion, [facility] Multimedia Programmer [id number] at 11/20/2016 2:08 PM CDT documented in this encounter Plan of Treatment Not on filedocumented as of this encounter Procedures Procedure Name Priority Date/Time Associated Comments Diagnosis PROTHROMBIN TIME Routine 07/17/2014 8:10 AM Resul ts for this (PT), P LABORATORY ASST procedure are i n the results section. documented in this encounter Results (ABNORMAL) PT (Prothrombin Time) with INR (07/17/2014 8:10 AM LABORATORY ASST) [facility] Method Time Signature Prothrombin 24.2 SECONDS POWERCHART Time, P INR 2.2 (H) [...] Time Location / / Volume Laterality Blood 07/17/2014 8:10 AM LABORATORY ASST Tasha Henriquez M.D. LAB BLOOD ADD-ON Performing Organization Address City/State/ZIP Code Phon e Number POWERCHART documented in this encounter Visit Diagnoses Not on filedocumented in this encounter
--- OUTSIDE RECORDS SUMMARY | 2022-04-25 16:04 | XMS_ITS | Encounter Summary ---
:[address] [facility] Address [address] [place] [address] Care Team Providers Name Role Phone Unavailable Primary Care Provider Unavailable Encounter Details Date Type Department Care Team Description 05/10/2013 Hospital Encounter HX [facility] Mima Malagon R.N. [address] [place] [id number] Social History Tobacco Use Types Packs/Day Years [...]
--- OUTSIDE RECORDS SUMMARY | 2022-04-25 16:04 | XMS_ITS | Encounter Summary ---
:1975 Author Organization [facility] Address [address] [place] [address] Care Team Providers Name Role Phone Unavailable Primary Care Provider Unavailable Encounter Details Date Type Department Care Team Description 10/03/2013 Hospital Encounter HX [facility] Marsha Henriquez M.D. [address] [place], [place] [address] (Wo rk) Social History [...] Notes Miscellaneous - Meli Campo R.N. - 10/03/2013 2:45 PM CDT 03 October 2013 DORITA SHEFFIELD [address] [place] [facility] [id number] Dear DORITA SHEFFIELD, Your INR today was: 2.53 10/03/13 Your target range for your condition is: 2-3 You should: CONTINUE YOUR CURRENT DOSE OF COUMADIN Your Coumadin Tablet Strength should be: 5MG Daily Dose: SUN: 2.5 mg MON: 5 mg TUE: 2.5 mg WED: 5 mg THUR: 2.5 mg FRI: 5 mg SAT: 2.5 mg Number of Pills to take each day: SUN: 06/27 MON: 1 TUE: 1/2 WED: 1 THUR: 06/27 FRI: 1 SAT: 06/27 Your next INR appointment is scheduled for: 5 weeks(11/07/13) INRs drawn after 4:00PM might not be reported to the patient until the following day. If you have questions regarding any of the above information or feel the information is not accurateplease call [phone] or ext. [phone]. [facility] [place] [facility] staff: Antonia Mcclellan, RN; Fina Peres, RN; Eliana Farooq, RN; Eliana Myers, RN; Ermelinda Casas, RN; Meli Campo, RN; Love Medina, RN Sincerely, MELI CAMPO Electronic Signature Electronically Signed By: MELI CAMPO RN On: 03 October 2013 This document has images extracted. Source: [facility] [employer] Document Id: [id number] Meli Miles R.N. - 10/03/2013 2:43 PM CDT General Message Document Contains Addenda Addendum by DESHAWN ASTORGA on 07 October 2013 13:31:40 CDT scheduled From: MELI CAMPO RN ( Anticoagulation Nurse) To: Internal Medicine Campground Manager; Sent: 10/03/2013 14:43:44 CDT Subject: General Message Please schedule on lab schedule for Jonathan Sotelo 11/07/13 Source: [facility] [employer] Document Id: [id number] Meli Miles R.N. - 10/03/2013 2:38 PM CDT Anticoagulation Patient Intake Anticoagulation Patient Intake Entered On: 10/03/2013 14:41 CDT Performed On: 10/03/2013 14:38 CDT by MELI CAMPO RN Plan INR goal range : 2.0 - 3.0 Duration of Therapy : Lifelong Tablet Size : 5 mg MELI CAMPO RN - 10/03/2013 14:38 CDT Anticoagulation Management Plan Grid Date : 09/05/2013 CDT 10/03/2013 CDT Location of INR sample : Clinic Lab Type of Sample : Venous Venous INR Result : 2.65 2.53 Warfarin Dose : 5mg Mon, Wed, Fri, & 2.5mg all other days 5mg Mon,Wed,Fri and 2.5mg all other days Total Weekly Warfarin Dose : 25 25 Comment : ly/called to Mom/Fabiola called to Mom/Fabiola,no changes,they will be gone in 4wks will checkin 5wks Recommend Recheck : One month Other: 5 weeks Plan completed by : MELI Bass RN - 10/03/2013 14:38 CDT MELI CAMPO RN - 10/03/2013 14:38 CDT Anticoagulation Assessment / History Visit : Phone management Primary Physician Anticoagulation : TASHA HENRIQUEZ MD 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 : Other: Deep Phlebitis-Leg NEC CHADS2 Score Date : 09/05/2013 CDT MELI CAMPO RN - 10/03/2013 14:38 CDT Changes / Problems Changes/Problems Since Last Visit : None Been Scheduled For : None Missed Coumadin Doses : None Change In Intake : None Change In Medication : None Have You Had : None Plans to Travel : Yes MELI CAMPO RN - 10/03/2013 14:38 CDT Source: [facility] Document Id: [id number] CDT!40 documented in this encounter Plan of Treatment Not on filedocumented as of this encounter Procedures Procedure Name Priority Date/Time Associated Comments Diagnosis PROTHROMBIN TIME Routine 10/03/2013 8:00 AM Resul ts for this (PT), P CDT procedure are i n the results section. documented in this encounter Results (ABNORMAL) PT (Prothrombin Time) with INR (10/03/2013 8:00 AM CDT) [facility] Method Time Signature Prothrombin 25.6 (H) 8.7 - 11.8 POWERCHART Time, P SECONDS INR 2.53 (H) 0.80 - 1.10 POWERCHART INR Comment: Recommended INR for prophylaxis/treatmen t of Venous Thrombosis, Pulmonary Embolism, Myocardial Infarction, and Embolism from Atrial Fibrillation is 2.0- 3.0 (Standard Therapy) Recommended INR for Mechanical Heart Tejal ves and recurrent Systemic Embolism is 2.5-3.5 (Intensive Therapy) Specimen (Source) Anatomical Collection Method Collection Time Re ceived Time Location / / Volume Laterality Blood 10/03/2013 8:00 AM CDT Tasha Henriquez M.D. LAB BLOOD ADD-ON Performing Organization Address City/State/ZIP Code Phon e Number POWERCHART documented in this encounter Visit Diagnoses Not on filedocumented in this encounter
--- OUTSIDE RECORDS SUMMARY | 2022-04-25 16:04 | XMS_ITS | Encounter Summary ---
:1975 Author Organization [facility] Address [address] [place] [address] Care Team Providers Name Role Phone Unavailable Primary Care Provider Unavailable Encounter Details Date Type Department Care Team Description 03/06/2014 Hospital Encounter [facility] Marsha Henriquez M.D. [address] [place], [place] [address] (Wo rk) Social History [...] Notes Miscellaneous - Khadar Medina, RMichaelN. - 03/06/2014 12:07 PM CDT Anticoagulation Patient Intake Anticoagulation Patient Intake Entered On: 03/06/2014 12:08 CDT Performed On: 03/06/2014 12:07 CDT by KHADAR MEDINA RN Plan INR goal range : 2.0 - 3.0 Duration of Therapy : Lifelong Tablet Size : 5 mg KHADAR MEDINA RN - 03/06/2014 12:07 CDT KHADAR MEDINA RN - 03/06/2014 12:07 CDT Anticoagulation Management Plan Grid Date [...] completed by : KHADAR Manning RN - 03/06/2014 12:07 CDT KHADAR MEDINA RN - 03/06/2014 12:07 CDT KHADAR MEDINA RN - 03/06/2014 12:07 CDT KHADAR MEDINA RN - 03/06/2014 12:07 CDT Date : 12/26/2013 CDT 01/30/2014 CDT 03/06/2014 CDT Location of INR sample : Lab Lab Lab Type of Sample : Venous Venous Venous INR Result : 2.79 2.7 4.8 Warfarin Dose : 5mg mon/wed/fri and 2.5mg all other days 5mg Mon/Wed/Fri, 2.5mg all other days HOLD 03/06, 2.5mg 03/07, 03/08, 03/09 Total Weekly Warfarin Dose : 25 25 Comment : called to Fabiola called to Fabiola called to Fabiola, no changes, did have a pimple a couple ofweeks ago that bled for a long time, no bleeding now Recommend Recheck : Other: 5 weeks Other: 5 weeks Other: 03/10/2014 Plan completed by : KHADAR Lovelace RN - 03/06/2014 12:07 KHADAR HILL RN - 03/06/2014 12:07 CDT KHADAR MEDINA RN - 03/06/2014 12:09 CDT Anticoagulation Assessment / History Visit : Phone management Plan of Care Date : 01/29/2008 CDT Primary Physician Anticoagulation : TASHA HENRIQUEZ MD 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 - 03/06/2014 11:57 AM CDT Results Notification From: KHADAR MEDINA RN ( Anticoagulation Nurse) To: Anticoagulation Nurse; Sent: 03/06/2014 11:57:48 CDT Show up: 03/06/2014 11:58:00 CDT Subject: Results Notification Results: Date Result Name Value Ref Range 03/06/2014 08:02 INR 4.8 INR (0.9 - 1.1) Source: [facility] [employer] Document Id: [id number] Enriquetacellaneous - Khadar Medina R.N. - 03/06/2014 11:39 AM CDT Results Notification From: KHADAR MEDINA RN ( Anticoagulation Nurse) To: Anticoagulation Nurse; Sent: 03/06/2014 11:39:23 CDT Show up: 03/06/2014 11:40:00 CDT Subject: Results Notification Results: Date Result Name Value Ref Range 03/06/2014 08:02 PT 56.9 second(s) (8.7 - 11.8) Source: [facility] POWERCHART Document Id: [id number] Electronically signed by Conversion, [facility] Retail Leader [id number] at 11/22/2016 12:30 PM CDT documented in this encounter Plan of Treatment Not on filedocumented as of this encounter Procedures Procedure Name Priority Date/Time Associated Comments Diagnosis PROTHROMBIN TIME Routine 03/06/2014 8:02 AM Resul ts for this (PT), P CDT procedure are i n the results section. documented in this encounter Results (ABNORMAL) PT (Prothrombin Time) with INR (03/06/2014 8:02 AM CDT) [facility] Method Time Signature Prothrombin 56.9 (H) 8.7 - 11.8 POWERCHART Time, P SECONDS Comment: repeat INR 4.8 (H) 0.9 - 1.1 INR POWERCHART Comment: This result has been repeated f or confirmation. Specimen (Source) Anatomical Collection Method Collection Time Re ceived Time Location / / Volume Laterality Blood 03/06/2014 8:02 AM CDT Tasha Henriquez M.D. LAB BLOOD ADD-ON Performing Organization Address City/State/ZIP Code Phon e Number POWERCHART documented in this encounter Visit Diagnoses Not on filedocumented in this encounter
--- OUTSIDE RECORDS SUMMARY | 2022-04-25 16:04 | XMS_ITS | Encounter Summary ---
:1975 Author Organization [facility] Address [address] [place] [address] Care Team Providers Name Role Phone Unavailable Primary Care Provider Unavailable Encounter Details Date Type Department Care Team Description 03/20/2014 Hospital Encounter HX [facility] Marsha Henriquez M.D. [address] [place], [place] [address] (Wo rk) Social History [...] Notes Miscellaneous - Khadar Medina, RMichaelN. - 03/20/2014 2:47 PM CDT Anticoagulation Patient Intake Anticoagulation Patient Intake Entered On: 03/20/2014 14:52 CDT Performed On: 03/20/2014 14:47 CDT by KHADAR MEDINA RN Plan INR goal range : 2.0 - 3.0 Duration of Therapy : Lifelong Tablet Size : 5 mg KHADAR MEDINA RN - 03/20/2014 14:47 CDT Anticoagulation Management Plan Grid Date : [...] completed by : KHADAR Manning RN - 03/20/2014 14:47 CDT KHADAR MEDINA RN - 03/20/2014 14:47 CDT KHADAR MEDINA RN - 03/20/2014 14:47 CDT KHADAR MEDINA RN - 03/20/2014 14:47 CDT Date : 12/26/2013 CDT 01/30/2014 CDT [...] completed by : KHADAR Cho RN - 03/20/2014 14:47 CDT KHADAR MEDINA RN - 03/20/2014 14:47 CDT KHADAR MEDINA RN - 03/20/2014 14:47 CDT KHADAR MEDINA RN - 03/20/2014 14:47 CDT Date : 03/20/2014 CDT Location of INR sample : Lab Type of Sample : Venous INR Result : 3.8 Warfarin Dose : HOLD 03/20, then 5mg Mon/Mon, 2.5mg all other days Total Weekly Warfarin Dose : Comment : called to Mom, she is going to check with [employer] to see if she is drinking Cranberry Splash Sprite Recommend Recheck : One week Plan completed by : KHADAR Mae RN - 03/20/2014 14:47 CDT Anticoagulation Assessment / History Visit : Phone management Plan of Care Date : 01/29/2008 CDT Primary Physician Anticoagulation : TASHA HENRIQUEZ MD 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 - 03/20/2014 11:31 AM CDT Results Notification From: WALI ZAPATA RN ( Anticoagulation Nurse) To: Anticoagulation Nurse; Sent: 03/20/2014 11:31:52 CDT Show up: 03/20/2014 11:32:00 CDT Subject: Results Notification Results: Date Result Name Value Ref Range 03/20/2014 08:07 PT 44.3 second(s) (8.7 - 11.8) 03/20/2014 08:07 INR 3.8 INR (0.9 - 1.1) Source: [facility] POWERCHART Document Id: [id number] Electronically signed by Conversion, [facility] Legal Services Manager [id number] at 11/22/2016 7:23 PM CDT documented in this encounter Plan of Treatment Not on filedocumented as of this encounter Procedures Procedure Name Priority Date/Time Associated Comments Diagnosis PROTHROMBIN TIME Routine 03/20/2014 8:07 AM Resul ts for this (PT), P CDT procedure are i n the results section. documented in this encounter Results (ABNORMAL) PT (Prothrombin Time) with INR (03/20/2014 8:07 AM CDT) [facility] Method Time Signature Prothrombin 44.3 (H) 8.7 - 11.8 POWERCHART Time, P SECONDS INR 3.8 (H) 0.9 - 1.1 POWERCHART INR Comment: Recommended INR for prophylaxis/treatmen t of Venous Thrombosis, Pulmonary Embolism, Myocardial Infarction, and Embolism from Atrial Fibrillation is 2.0- 3.0 (Standard Therapy) Recommended INR for Mechanical Heart Tejal ves and recurrent Systemic Embolism is 2.5-3.5 (Intensive Therapy) Specimen (Source) Anatomical Collection Method Collection Time Re ceived Time Location / / Volume Laterality Blood 03/20/2014 8:07 AM CDT Tasha Henriquez M.D. LAB BLOOD ADD-ON Performing Organization Address City/State/ZIP Code Phon e Number POWERCHART documented in this encounter Visit Diagnoses Not on filedocumented in this encounter
--- OUTSIDE RECORDS SUMMARY | 2022-04-25 16:04 | XMS_ITS | Encounter Summary ---
:1975 Author Organization [facility] Address [address] [place] [address] Care Team Providers Name Role Phone Unavailable Primary Care Provider Unavailable Encounter Details Date Type Department Care Team Description 06/13/2013 Hospital Encounter HX [facility] ANTICOAG Provider, His torical Social History Tobacco Use Types Packs/Day Years [...]
--- OUTSIDE RECORDS SUMMARY | 2022-04-25 16:04 | XMS_ITS | Encounter Summary ---
:1975 [address] [facility] Address [address] [place] [address] Care Team Providers Name Role Phone Unavailable Primary Care Provider Unavailable Encounter Details Date Type Department Care Team Description 04/28/2013 Hospital Encounter HX [facility] Provider, Historic al Social History Tobacco Use Types Packs/Day Years [...] of this encounter Miscellaneous Notes Miscellaneous - Eliana Farooq R.N. - 04/28/2013 9:00 AM CST [id number] Hue Bellamy Carol [address] [facility] [id number] April 29, 2013 Dear Ms. Hue Bellamy Carol: Your Lab today was: INR 2.12 04/28/2013 Your target range for your condition is: 2 - 3 You should: CONTINUE YOUR CURRENT DOSE Your Coumadin Tablet Strength should be: 1 mg Daily Dose: MON:2mg TUE:2mg WED:2mg THUR: get INR done please Number of Pills to take each day: MON:2 TUE:2 WED:2 THUR:get INR done please Your next lab appointment is scheduled for: 05/02/2013 CF Fax [facility] labs should be drawn before 3:00 PM. [facility] labs should be drawn before 4:00 PM. If you have questions regarding any of the above information or feel the information is not accurateplease call [phone] or ext. [phone]. Thank you, Eliana Farooq RN [facility] in [place] INR Clinic staff: Eliana Farooq RN; Antonia Mcclellan, RN; Eliana Myers, RN; Fina Peres, RN; Ermelinda Casas RN; Mima Campo RN; Love Medina, ANGELINE Source: [facility] [id number] Document Id: [id number] documented in this encounter Plan of Treatment Not on filedocumented as of this encounter Procedures Procedure Name Priority Date/Time Associated Comments Diagnosis PROTHROMBIN TIME Routine 04/28/2013 10:57 Results for this (PT), P AM GLOBAL CHIEF CREATIVE OFFICER procedure are i n the results section. documented in this encounter Results PT (Prothrombin Time) with INR (04/28/2013 10:57 AM GLOBAL CHIEF CREATIVE OFFICER) P athologist Signature INR 2.12 [facility] Specimen (Source) Anatomical Collection Method Collection Time Re ceived Time Location / / Volume Laterality 04/28/2013 10:57 AM GLOBAL CHIEF CREATIVE OFFICER Historical Provider LAB BLOOD ADD-ON Performing Organization Address City/State/ZIP Code Phon e Number [facility] documented in this encounter Visit Diagnoses Not on filedocumented in this encounter
--- OUTSIDE RECORDS SUMMARY | 2022-04-25 16:04 | XMS_ITS | Encounter Summary ---
:1975 Author Organization [facility] Address [address] [place] [address] Care Team Providers Name Role Phone Unavailable Primary Care Provider Unavailable Encounter Details Date Type Department Care Team Description 05/06/2013 Hospital Encounter HX NO MAPPING Provider, Historical [...]
--- OUTSIDE RECORDS SUMMARY | 2022-04-25 16:04 | XMS_ITS | Encounter Summary ---
:1975 Author Organization [facility] Address [address] [place] [address] Care Team Providers Name Role Phone Unavailable Primary Care Provider Unavailable Encounter Details Date Type Department Care Team Description 03/10/2014 Hospital Encounter HX [facility] Marsha Henriquez M.D. [address] [place], [place] [address] (Wo rk) Social History [...] encounter Miscellaneous Notes Miscellaneous - Meli Campo, R.N. - 03/10/2014 10:18 AM CDT Anticoagulation Patient Intake Anticoagulation Patient Intake Entered On: 03/10/2014 10:19 CDT Performed On: 03/10/2014 10:18 CDT by MELI CAMPO RN Plan INR goal range : 2.0 - 3.0 Duration of Therapy : Lifelong Tablet Size : 5 mg MELI CAMPO RN - 03/10/2014 10:18 CDT Anticoagulation Management Plan Grid Date [...] Two weeks Plan completed by : MELI Vidal RN - 03/10/2014 10:18 CDT MELI CAMPO RN - 03/10/2014 10:18 CDT MELI CAMPO - 03/10/2014 10:18 MELI ESQUIVEL RN - 03/10/2014 10:18 CDT Date : 12/26/2013 CDT 01/30/2014 [...] completed by : MELI Pradhan RN - 03/10/2014 10:18 CDMELI CHERRY RN - 03/10/2014 10:18 NATALIIA ESQUIVELLE LRN - 03/10/2014 10:18 CDT MELI CAMPO RN - 03/10/2014 10:18 CDT Anticoagulation Assessment / History Visit : Phone management Plan of Care Date : 01/29/2008 CDT Primary Physician Anticoagulation : TASHA HENRIQUEZ MD 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 [employer] Document Id: [id number] CDT!92 Miscellaneous - Meli Campo R.N. - 03/10/2014 9:23 AM CDT Results Notification From: MELI CAMPO RN ( Anticoagulation Nurse) To: Anticoagulation Nurse; Sent: 03/10/2014 09:23:37 CDT Show up: 03/10/2014 09:24:00 CDT Subject: Results Notification Results: Date Result Name Value Ref Range 03/10/2014 09:06 PT 35.5 second(s) (8.7 - 11.8) 03/10/2014 09:06 INR 3.1 INR (0.9 - 1.1) [facility] Document Id: [id number] documented in this encounter Plan of Treatment Not on filedocumented as of this encounter Procedures Procedure Name Priority Date/Time Associated Comments Diagnosis PROTHROMBIN TIME Routine 03/10/2014 9:06 AM Resul ts for this (PT), P CDT procedure are i n the results section. documented in this encounter Results (ABNORMAL) PT (Prothrombin Time) with INR (03/10/2014 9:06 AM CDT) [facility] Method Time Signature Prothrombin 35.5 (H) [...] Time Location / / Volume Laterality Blood 03/10/2014 9:06 AM CDT Tasha Henriquez M.D. LAB BLOOD ADD-ON Performing Organization Address City/State/ZIP Code Phon e Number POWERCHART documented in this encounter Visit Diagnoses Not on filedocumented in this encounter
--- OUTSIDE RECORDS SUMMARY | 2022-04-25 16:04 | XMS_ITS | Encounter Summary ---
:1975 Author Organization [facility] Address [address] [place] [address] Care Team Providers Name Role Phone Unavailable Primary Care Provider Unavailable Encounter Details Date Type Department Care Team Description 05/06/2013 Hospital Encounter HX [facility] Renetta Cabral M.D. [address] [place] [phone] (Wo rk) Social History Tobacco Use [...] Date/Time Associated Comments Diagnosis PROTHROMBIN TIME Routine 05/06/2013 1:20 PM Resul ts for this (PT), P BUILDING SPECIALIST procedure are i n the results section. documented in this encounter Results (ABNORMAL) PT (Prothrombin Time) with INR (05/06/2013 1:20 PM BUILDING SPECIALIST) [facility] Method Time Signature Prothrombin 17.9 (H) 9.3 - 11.3 POWERCHART Time, P SECONDS INR 1.78 (H) 0.90 - 1.10 POWERCHART Specimen (Source) Anatomical Collection Method Collection Time Re ceived Time Location / / Volume Laterality Blood 05/06/2013 1:20 PM BUILDING SPECIALIST Sridhar Garibay M.D. LAB BLOOD ADD-ON Performing Organization Address City/State/ZIP Code Phon e Number POWERCHART documented in this encounter Visit Diagnoses Not on filedocumented in this encounter
--- OUTSIDE RECORDS SUMMARY | 2022-04-25 16:04 | XMS_ITS | Encounter Summary ---
:1975 Author Organization [facility] Address [address] [place] [address] Care Team Providers Name Role Phone Unavailable Primary Care Provider Unavailable Encounter Details Date Type Department Care Team Description 05/22/2013 Hospital Encounter [facility] ANTICOAG Provider, His torical Social History Tobacco [...] Date/Time Associated Comments Diagnosis PROTHROMBIN TIME Routine 05/22/2013 4:18 PM Resul ts for this (PT), P DONOR RECRUITMENT MANAGER procedure are i n the results section. documented in this encounter Results PT (Prothrombin Time) with INR (05/22/2013 4:18 PM DONOR RECRUITMENT MANAGER) P athologist Signature INR 2.00 [facility] LAB Specimen (Source) Anatomical Collection Method Collection Time Re ceived Time Location / / Volume Laterality 05/22/2013 4:18 PM DONOR RECRUITMENT MANAGER Historical Provider LAB BLOOD ADD-ON Performing Organization Address City/State/ZIP Code Phon e Number [facility] documented in this encounter Visit Diagnoses Not on filedocumented in this encounter
--- OUTSIDE RECORDS SUMMARY | 2022-04-25 16:04 | XMS_ITS | Encounter Summary ---
:1975 Author Organization [facility] Address [address] [place] [address] Care Team Providers Name Role Phone Unavailable Primary Care Provider Unavailable Encounter Details Date Type Department Care Team Description 11/07/2013 Hospital Encounter [facility] Marsha Henriquez M.D. [address] [place], [place] [address] (Wo rk) Social History [...] Miscellaneous Notes Miscellaneous - Wali Brito - 11/07/2013 12:58 PM CDT Anticoagulation Patient Intake Anticoagulation Patient Intake Entered On: 11/07/2013 13:00 CDT Performed On: 11/07/2013 12:58 CDT by WALI BRITO RN Plan INR goal range : 2.0 - 3.0 Duration of Therapy : Lifelong Tablet Size : 5 mg WALI BRITO RN - 11/07/2013 12:58 CDT Anticoagulation Management Plan Grid Date : 09/05/2013 CDT 10/03/2013 CDT 11/07/2013 CDT Location of INR sample : Clinic Lab Lab Type of Sample : Venous Venous Venous INR Result : 2.65 2.53 3.05 Warfarin Dose : 5mg Mon, Wed, Fri, & 2.5mg all other days 5mg Mon,Wed,Fri and 2.5mg all other days 5mg Mon, Wed & Fri, 2.5mg all other days Total Weekly Warfarin Dose : 25 25 25 Comment : ly/called to Mom/Fabiola called to Mom/Fabiola,no changes,they will be gone in 4wks will checkin 5wks Called to Mom/Fabiola, no changes Recommend Recheck : One month Other: 5 weeks Other: 5 weeks Plan completed by : WALI Louis RN - 11/07/2013 12:58 CDT WALI BRITO RN - 11/07/2013 12:58 CDT WALI BRITO RN - 11/07/2013 12:58 CDT Anticoagulation Assessment / History Visit : Phone management Plan of Care Date : 01/29/2008 CDT Primary Physician Anticoagulation : TASHA HENRIQUEZ MD 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 : DVT Lower, Other: Deep Phlebitis-Leg NEC CHADS2 Score Date : 09/05/2013 CDT WALI BRITO RN - 11/07/2013 12:58 CDT Changes / Problems Changes/Problems Since Last Visit : None Been Scheduled For : None Missed Coumadin Doses : None Change In Intake : None Change In Medication : None Have You Had : None Plans to Travel : No WALI BRITO RN - 11/07/2013 12:58 CDT Source: [facility] [employer] Document Id: [id number] CDT!51 Miscellaneous - Wali Brito - 11/07/2013 10:58 AM CDT Results Notification Document Contains Addenda Addendum by WALI BRITO RN on 07 Nov 2013 13:03:06 CDT Patient's Mom/Fabiola called with orders. From: WALI BRITO RN ( Anticoagulation Nurse) To: Anticoagulation Nurse; Sent: 11/07/2013 10:58:31 CDT Show up: 11/07/2013 10:59:00 CDT Subject: Results Notification Results: Date Result Name Value Ref Range 11/07/2013 08:07 PT 29.4 second(s) 11/07/2013 08:07 INR 3.05 INR (0.80 - 1.10) Source: [facility] POWERCHART Document Id: [id number] documented in this encounter Plan of Treatment Not on filedocumented as of this encounter Procedures Procedure Name Priority Date/Time Associated Comments Diagnosis PROTHROMBIN TIME Routine 11/07/2013 8:07 AM Resul ts for this (PT), P CDT procedure are i n the results section. documented in this encounter Results (ABNORMAL) PT (Prothrombin Time) with INR (11/07/2013 8:07 AM CDT) [facility] Method Time Signature Prothrombin 29.4 SECONDS POWERCHART Time, P INR 3.05 (H) 0.80 - 1.10 POWERCHART INR Comment: Recommended INR for prophylaxis/treatmen t of Venous Thrombosis, Pulmonary Embolism, Myocardial Infarction, and Embolism from Atrial Fibrillation is 2.0- 3.0 (Standard Therapy) Recommended INR for Mechanical Heart Tejal ves and recurrent Systemic Embolism is 2.5-3.5 (Intensive Therapy) Specimen (Source) Anatomical Collection Method Collection Time Re ceived Time Location / / Volume Laterality Blood 11/07/2013 8:07 AM CDT Tasha Henriquez M.D. LAB BLOOD ADD-ON Performing Organization Address City/State/ZIP Code Phon e Number POWERCHART documented in this encounter Visit Diagnoses Not on filedocumented in this encounter
--- OUTSIDE RECORDS SUMMARY | 2022-04-25 16:04 | XMS_ITS | Encounter Summary ---
:1975 Author Organization [facility] Address [address] [place] [address] Care Team Providers Name Role Phone Unavailable Primary Care Provider Unavailable Encounter Details Date Type Department Care Team Description 05/06/2013 Hospital Encounter [facility]X [facility] ANTICOAG Provider, His torical Social History [...]
--- OUTSIDE RECORDS SUMMARY | 2022-04-25 16:04 | XMS_ITS | Encounter Summary ---
:1975 Author Organization [facility] Address [address] [place] [address] Care Team Providers Name Role Phone Unavailable Primary Care Provider Unavailable Encounter Details Date Type Department Care Team Description 04/28/2013 Hospital Encounter HX [facility] ANTICOAG Provider, His torical Social History Tobacco [...]
--- OUTSIDE RECORDS SUMMARY | 2022-04-25 16:04 | XMS_ITS | Encounter Summary ---
:1975 Author Organization [facility] Address [address] [place] [address] Care Team Providers Name Role Phone Unavailable Primary Care Provider Unavailable Encounter Details Date Type Department Care Team Description 05/02/2013 Hospital Encounter [facility]X [facility] Parag Brasher M.D. [address] [place] [phone] (Wo rk) Social History Tobacco Use [...] Date/Time Associated Comments Diagnosis PROTHROMBIN TIME Routine 05/02/2013 8:10 AM Resul ts for this (PT), P PRISONER CLASSIFICATION INTERVIEWER procedure are i n the results section. documented in this encounter Results (ABNORMAL) PT (Prothrombin Time) with INR (05/02/2013 8:10 AM PRISONER CLASSIFICATION INTERVIEWER) [facility] Method Time Signature Prothrombin 27.0 (H) 9.3 - 11.3 POWERCHART Time, P SECONDS INR 2.72 (H) 0.90 - 1.10 POWERCHART Specimen (Source) Anatomical Collection Method Collection Time Re ceived Time Location / / Volume Laterality Blood 05/02/2013 8:10 AM PRISONER CLASSIFICATION INTERVIEWER Sridhar C Mollgaard M.D. LAB BLOOD ADD-ON Performing Organization Address City/State/ZIP Code Phon e Number POWERCHART documented in this encounter Visit Diagnoses Not on filedocumented in this encounter
--- OUTSIDE RECORDS SUMMARY | 2022-04-25 16:04 | XMS_ITS | Encounter Summary ---
:1975 Author Organization [facility] Address [address] [place] [address] Care Team Providers Name Role Phone Unavailable Primary Care Provider Unavailable Encounter Details Date Type Department Care Team Description 09/03/2013 Hospital Encounter HX [facility] Marsha Garibay M.D. [address] [place], [place] [address] (Wo rk) Social History [...] of this encounter Miscellaneous Notes Miscellaneous - Sridhar Garibay M.D. - 09/03/2013 12:00 AM CDT [id number] Hue Bellamy Carol [address] [facility] [phone] Oct, 2013 Dear Hue Bellamy Carol, APPOINTMENT REMINDER: Our record indicates that it is time for you to be seen for an office visit with Sridhar Garibay M.D. You may call our office at [phone] to schedule an appointment for your six (6) month follow-up visit. Please disregard this notice if you have already made an appointment. Sincerely, [facility] [place] Source: [facility] Document Id: [id number] documented in this encounter Plan of Treatment Not on filedocumented as of this encounter Visit Diagnoses Not on filedocumented in this encounter
--- OUTSIDE RECORDS SUMMARY | 2022-04-25 16:04 | XMS_ITS | Encounter Summary ---
:1975 Author Organization [facility] Address [address] [place] [address] Care Team Providers Name Role Phone Unavailable Primary Care Provider Unavailable Encounter Details Date Type Department Care Team Description 05/10/2013 Hospital En[facility] Provider, Historic al Social History Tobacco [...] Date/Time Associated Comments Diagnosis PROTHROMBIN TIME Routine 05/10/2013 2:26 PM Resul ts for this (PT), P CLEARING SUPERVISOR procedure are i n the results section. HX UREA NITROGEN Routine 05/10/2013 2:19 PM Resul ts for this CLEARING SUPERVISOR procedure are i n the results section. HX AGAP Routine 05/10/2013 2:19 PM Results f or this CLEARING SUPERVISOR procedure are i n the results section. CREATININE WITH EGFR, Routine 05/10/2013 2:19 PM Results for this P CLEARING SUPERVISOR procedure are i n the results section. CREATININE WITH EGFR, Routine 05/10/2013 2:19 PM Results for this P CLEARING SUPERVISOR procedure are i n the results section. SODIUM, S/P Routine 05/10/2013 2:19 PM Results f or this CLEARING SUPERVISOR procedure are i n the results section. POTASSIUM, S/P Routine 05/10/2013 2:19 PM Results for this CLEARING SUPERVISOR procedure are i n the results section. GLUCOSE, RANDOM, S/P Routine 05/10/2013 2:19 PM R esults for this CLEARING SUPERVISOR procedure are i n the results section. CREATININE WITH EGFR, Routine 05/10/2013 2:19 PM Results for this S/P CLEARING SUPERVISOR procedure are i n the results section. CHLORIDE, S/P Routine 05/10/2013 2:19 PM Results for this CLEARING SUPERVISOR procedure are i n the results section. BICARBONATE, B/S/P Routine 05/10/2013 2:19 PM Res ults for this CLEARING SUPERVISOR procedure are i n the results section. CALCIUM, TOT, S/P Routine 05/10/2013 2:19 PM Resu lts for this CLEARING SUPERVISOR procedure are i n the results section. documented in this encounter Results PT (Prothrombin Time) with INR (05/10/2013 2:26 PM CLEARING SUPERVISOR) athologist [facility] INR 1.95 [facility] Specimen (Source) Anatomical Collection Method Collection Time Re ceived Time Location / / Volume Laterality 05/10/2013 2:26 PM CLEARING SUPERVISOR Historical Provider LAB BLOOD ADD-ON Performing Organization Address City/State/ZIP Code Phon e Number [facility] Calcium, Total (05/10/2013 2:19 PM CLEARING SUPERVISOR) athologist [facility] Calcium, Total, 9.2 MGDL [facility] Specimen (Source) Anatomical Collection Method Collection Time Re ceived Time Location / / Volume Laterality 05/10/2013 2:19 PM CLEARING SUPERVISOR Historical Provider LAB BLOOD ADD-ON Performing Organization Address City/State/ZIP Code Phon e Number [facility] Creatinine with Estimated GFR (MDRD), Plasma (05/10/2013 2:19 PM CLEARING SUPERVISOR) athologist Signature eGFR 64 [id number] [facility] [place] LAB Specimen (Source) Anatomical Collection Method Collection Time Re ceived Time Location / / Volume Laterality 05/10/2013 2:19 PM CLEARING SUPERVISOR Historical Provider LAB BLOOD ADD-ON Performing Organization Address City/State/ZIP Code Phon e Number [facility] Creatinine with Estimated GFR (MDRD), Plasma (05/10/2013 2:19 PM CLEARING SUPERVISOR) athologist Signature HXeGFR (MDRD) 53 [id number] [facility] Specimen (Source) Anatomical Collection Method Collection Time Re ceived Time Location / / Volume Laterality 05/10/2013 2:19 PM CLEARING SUPERVISOR Historical Provider LAB BLOOD ADD-ON Performing Organization Address City/State/ZIP Code Phon e Number [facility] Creatinine with Estimated GFR (MDRD) (05/10/2013 2:19 PM CLEARING SUPERVISOR) P athologist Signature Creatinine 1.14 MGDL [facility] Specimen (Source) Anatomical Collection Method Collection Time Re ceived Time Location / / Volume Laterality 05/10/2013 2:19 PM CLEARING SUPERVISOR Historical Provider LAB BLOOD ADD-ON Performing Organization Address City/State/ZIP Code Phon e Number [facility] HX UREA NITROGEN (05/10/2013 2:19 PM CLEARING SUPERVISOR) athologist Signature Urea Nitrogen, 22 MGDL [facility] 24 HR, [facility] Specimen (Source) Anatomical Collection Method Collection Time Re ceived Time Location / / Volume Laterality 05/10/2013 2:19 PM CLEARING SUPERVISOR Historical Provider LAB HISTORICAL ORDERS Performing Organization Address City/State/ZIP Code Phon e Number [facility] Glucose, Random (05/10/2013 2:19 PM CLEARING SUPERVISOR) athologist Signature Glucose 93 MGDL [facility] Specimen (Source) Anatomical Collection Method Collection Time Re ceived Time Location / / Volume Laterality 05/10/2013 2:19 PM CLEARING SUPERVISOR Narrative [facility] - 08/23/19 14 10:53 PM CLEARING SUPERVISOR Non Fasting Historical Provider LAB BLOOD TROPONIN Performing Organization Address City/State/ZIP Code Phon e Number [facility] HX AGAP (05/10/2013 2:19 PM CLEARING SUPERVISOR) P athologist Signature Anion Gap 10 MMOLL [facility] Specimen (Source) Anatomical Collection Method Collection Time Re ceived Time Location / / Volume Laterality 05/10/2013 2:19 PM CLEARING SUPERVISOR Historical Provider LAB HISTORICAL ORDERS Performing Organization Address City/State/ZIP Code Phon e Number [facility] Bicarbonate (05/10/2013 2:19 PM CLEARING SUPERVISOR) P athologist Signature HX Carbon 30 [facility]MOLL [facility] Specimen (Source) Anatomical Collection Method Collection Time Re ceived Time Location / / Volume Laterality 05/10/2013 2:19 PM CLEARING SUPERVISOR Historical Provider LAB BLOOD ADD-ON Performing Organization Address City/State/ZIP Code Phon e Number [facility] Chloride (05/10/2013 2:19 PM CLEARING SUPERVISOR) P athologist Signature Chloride, S 104 MMOLL [facility] Specimen (Source) Anatomical Collection Method Collection Time Re ceived Time Location / / Volume Laterality 05/10/2013 2:19 PM CLEARING SUPERVISOR Historical Provider LAB BLOOD ADD-ON Performing Organization Address City/State/ZIP Code Phon e Number [facility] Potassium, S (05/10/2013 2:19 PM CLEARING SUPERVISOR) P athologist Signature Potassium, S 4.7 MMOLL [facility] Specimen (Source) Anatomical Collection Method Collection Time Re ceived Time Location / / Volume Laterality 05/10/2013 2:19 PM CLEARING SUPERVISOR Historical Provider LAB BLOOD ADD-ON Performing Organization Address City/State/ZIP Code Phon e Number [facility] Sodium (05/10/2013 2:19 PM CLEARING SUPERVISOR) P athologist Signature Sodium, S 143 MMOLL [facility] Specimen (Source) Anatomical Collection Method Collection Time Re ceived Time Location / / Volume Laterality 05/10/2013 2:19 PM CLEARING SUPERVISOR Historical Provider LAB BLOOD ADD-ON Performing Organization Address City/State/ZIP Code Phon e Number [facility] documented in this encounter Visit Diagnoses Not on filedocumented in this encounter
--- OUTSIDE RECORDS SUMMARY | 2022-04-25 16:04 | XMS_ITS | Encounter Summary ---
:1975 Author Organization [facility] Address [address] [place] [address] Care Team Providers Name Role Phone Unavailable Primary Care Provider Unavailable Encounter Details Date Type Department Care Team Description 05/16/[address] [facility] ANTICOAG Provider, His torical Social [...] Date/Time Associated Comments Diagnosis PROTHROMBIN TIME Routine 05/16/2013 11:06 Results for this (PT), P AM DERRICK FOLLOWER procedure are i n the results section. documented in this encounter Results PT (Prothrombin Time) with INR (05/16/2013 11:06 AM DERRICK FOLLOWER) P athologist Signature INR 1.88 [facility] Specimen (Source) Anatomical Collection Method Collection Time Re ceived Time Location / / Volume Laterality 05/16/2013 11:06 AM DERRICK FOLLOWER Historical Provider LAB BLOOD ADD-ON Performing Organization Address City/State/ZIP Code Phon e Number [facility] documented in this encounter Visit Diagnoses Not on filedocumented in this encounter
--- OUTSIDE RECORDS SUMMARY | 2022-04-25 16:04 | XMS_ITS | Encounter Summary ---
:1975 Author Organization [facility] Address [address] [place] [address] Care Team Providers Name Role Phone Unavailable Primary Care Provider Unavailable Encounter Details Date Type Department Care Team Description 05/30/2013 Hospital Encounter [facility]X [facility] ANTICOAG Provider, His torical [...] this encounter Miscellaneous Notes Miscellaneous - Ermelinda Casas RViktor - 05/30/2013 8:00 AM CST [id number] Hue Bellamy Carol [address] [facility] [id number] May 30, 2013 Dear Ms. Hue Bellamy Carol: Your Lab today was: INR 2.11 05/30/2013 Your target range for your condition is: 2 - 3 You should: CONTINUE YOUR CURRENT DOSE Your Coumadin Tablet Strength should be: 5 mg Daily Dose: SUN:2.5mg MON:5mg TUE:2.5mg WED:5mg THUR:2.5mg FRI:5mg SAT:2.5mg Number of Pills to take each day: SUN:06/27 MON:1 TUE:2 WED:1 THUR:2 FRI:1 SAT:2 Your next lab appointment is scheduled for: 06/13/13. Main Clinic labs should be drawn before 3:00 PM. [place] [facility] labs should be drawn before 4:00 PM. If you have questions regarding any of the above information or feel the information is not accurateplease call [phone] or ext. [phone]. Thank you, Ermelinda Casas [facility] in [place] INR Clinic staff: Eliana Farooq, RN; Antonia Mcclellan, RN; Eliana Myers, RN; Fina Peres, RN; Ermelinda Casas, RN; Mima Campo, RN; Love Medina, RN Source: [facility] RWHXTRANSXRTFSYS Document Id: [id number] Electronically signed by Conversion, [facility] Gauger Delivery [id number] at 11/21/2016 7:26 PM CDT documented in this encounter Plan of Treatment Not on filedocumented as of this encounter Procedures Procedure Name Priority Date/Time Associated Comments Diagnosis PROTHROMBIN TIME Routine 05/30/2013 11:44 Results for this (PT), P AM VENDOR QUALITY SUPERVISOR procedure are i n the results section. documented in this encounter Results PT (Prothrombin Time) with INR (05/30/2013 11:44 AM VENDOR QUALITY SUPERVISOR) P athologist Signature INR 2.11 [facility] Specimen (Source) Anatomical Collection Method Collection Time Re ceived Time Location / / Volume Laterality 05/30/2013 11:44 AM VENDOR QUALITY SUPERVISOR Historical Provider LAB BLOOD ADD-ON Performing Organization Address City/State/ZIP Code Phon e Number [facility] documented in this encounter Visit Diagnoses Not on filedocumented in this encounter
--- OUTSIDE RECORDS SUMMARY | 2022-04-25 16:04 | XMS_ITS | Encounter Summary ---
:1975 Author Organization [facility] Address [address] [place] [address] Care Team Providers Name Role Phone Unavailable Primary Care Provider Unavailable Encounter Details Date Type Department Care Team Description 09/05/2013 Hospital Encounter [facility] ANTICOAG Provider, His torical Social History [...]
--- OUTSIDE RECORDS SUMMARY | 2022-04-25 16:04 | XMS_ITS | Encounter Summary ---
:1975 Author Organization [facility] Address [address] [place] [address] Care Team Providers Name Role Phone Unavailable Primary Care Provider Unavailable Encounter Details Date Type Department Care Team Description 12/12/2013 Hospital Encounter [facility] Marsha Henriquez M.D. [address] [place], [place] [address] (Wo rk) Social History [...] Notes Miscellaneous - Khadar Medina, RMichaelN. - 12/12/2013 11:50 AM CDT Anticoagulation Patient Intake Anticoagulation Patient Intake Entered On: 12/12/2013 11:54 CDT Performed On: 12/12/2013 11:50 CDT by KHADAR MEDINA RN Plan INR goal range : 2.0 - 3.0 Duration of Therapy : Lifelong Tablet Size : 5 mg KHADAR MEDINA RN - 12/12/2013 11:50 CDT Anticoagulation Management Plan Grid Date [...] completed by : KHADAR Manning RN - 12/12/2013 11:50 CDT KHADAR MEDINA RN - 12/12/2013 11:50 CDT KHADAR MEDINA RN - 12/12/2013 11:50 CDT KHADAR MEDINA RN - 12/12/2013 11:50 CDT Anticoagulation Assessment / History Visit : Phone management Plan of Care Date : 01/29/2008 CDT Primary Physician Anticoagulation : TASHA HENRIQUEZ MD 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 - 12/12/2013 11:03 AM CDT Results Notification From: KHADAR MEDINA RN ( Anticoagulation Nurse) To: Anticoagulation Nurse; Sent: 12/12/2013 11:03:04 CDT Show up: 12/12/2013 11:04:00 CDT Subject: Results Notification Results: Date Result Name Value Ref Range 12/12/2013 08:01 PT 33.0 second(s) 12/12/2013 08:01 INR 3.56 INR (0.80 - 1.10) Source: [facility] POWERCHART Document Id: [id number] Electronically signed by Conversion, [facility] Cardiology Clinical Consultant [id number] at 11/22/2016 3:37 AM CDT documented in this encounter Plan of Treatment Not on filedocumented as of this encounter Procedures Procedure Name Priority Date/Time Associated Comments Diagnosis PROTHROMBIN TIME Routine 12/12/2013 8:01 AM Resul ts for this (PT), P CDT procedure are i n the results section. documented in this encounter Results (ABNORMAL) PT (Prothrombin Time) with INR (12/12/2013 8:01 AM CDT) [facility] Method Time Signature Prothrombin 33.0 SECONDS POWERCHART Time, P INR 3.56 (H) 0.80 - 1.10 POWERCHART INR Comment: Recommended INR for prophylaxis/treatmen t of Venous Thrombosis, Pulmonary Embolism, Myocardial Infarction, and Embolism from Atrial Fibrillation is 2.0- 3.0 (Standard Therapy) Recommended INR for Mechanical Heart Tejal ves and recurrent Systemic Embolism is 2.5-3.5 (Intensive Therapy) Specimen (Source) Anatomical Collection Method Collection Time Re ceived Time Location / / Volume Laterality Blood 12/12/2013 8:01 AM CDT Tasha Henriquez M.D. LAB BLOOD ADD-ON Performing Organization Address City/State/ZIP Code Phon e Number POWERCHART documented in this encounter Visit Diagnoses Not on filedocumented in this encounter
--- OUTSIDE RECORDS SUMMARY | 2022-04-25 16:04 | XMS_ITS | Encounter Summary ---
:1975 Author Organization [facility] Address [address] [place] [address] Care Team Providers Name Role Phone Unavailable Primary Care Provider Unavailable Encounter Details Date Type Department Care Team Description 01/30/2014 Hospital Encounter [facility] Marsha Henriquez M.D. [address] [...] Notes Miscellaneous - Khadar Medina, RMichaelN. - 01/30/2014 11:24 AM CDT Anticoagulation Patient Intake Anticoagulation Patient Intake Entered On: 01/30/2014 11:27 CDT Performed On: 01/30/2014 11:24 CDT by KHADAR MEDINA RN Plan INR goal range : 2.0 - 3.0 Duration of Therapy : Lifelong Tablet Size : 5 mg KHADAR MEDINA RN - 01/30/2014 11:24 CDT Anticoagulation Management Plan Grid Date [...] completed by : KHADAR Manning RN - 01/30/2014 11:24 CDT KHADAR MEDINA RN - 01/30/2014 11:24 CDT KHADAR MEDINA RN - 01/30/2014 11:24 CDT KHADAR MEDINA RN - 01/30/2014 11:24 CDT Date : 12/26/2013 CDT 01/30/2014 CDT Location of INR sample : Lab Lab Type of Sample : Venous Venous INR Result : 2.79 2.7 Warfarin Dose : 5mg mon/wed/fri and 2.5mg all other days 5mg Mon/Wed/Fri, 2.5mg all other days Total Weekly Warfarin Dose : 25 25 Comment : called to Fabiola called to Fabiola Recommend Recheck : Other: 5 weeks Other: 5 weeks Plan completed by : KHADAR Rick RN - 01/30/2014 11:24 CDT KHADAR MEDINA RN - 01/30/2014 11:24 CDT Anticoagulation Assessment / History Visit : Phone management Plan of Care Date : 01/29/2008 CDT Primary Physician Anticoagulation : TASHA HENRIQUEZ MD 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 [employer] Document Id: [id number] CDT!81 Miscellaneous - Khadar Medina R.N. - 01/30/2014 10:29 AM CDT Results Notification From: KHADAR MEDINA RN ( Anticoagulation Nurse) To: Anticoagulation Nurse; Sent: 01/30/2014 10:29:53 CDT Show up: 01/30/2014 10:30:00 CDT Subject: Results Notification Results: Date Result Name Value Ref Range 01/30/2014 08:12 PT 30.3 second(s) (8.7 - 11.8) 01/30/2014 08:12 INR 2.7 INR (0.9 - 1.1) Source: [facility] Document Id: [id number] Electronically signed by Lay, [facility] Crutcher Helper [id number] at 11/22/2016 1:39 PM CDT documented in this encounter Plan of Treatment Not on filedocumented as of this encounter Procedures Procedure Name Priority Date/Time Associated Comments Diagnosis PROTHROMBIN TIME Routine 01/30/2014 8:12 AM Resul ts for this (PT), P CDT procedure are i n the results section. documented in this encounter Results (ABNORMAL) PT (Prothrombin Time) with INR (01/30/2014 8:12 AM CDT) [facility] Method Time Signature Prothrombin 30.3 (H) 8.7 - 11.8 POWERCHART Time, P [...] Time Location / / Volume Laterality Blood 01/30/2014 8:12 AM CDT Tasha Henriquez M.D. LAB BLOOD ADD-ON Performing Organization Address City/State/ZIP Code Phon e Number POWERCHART documented in this encounter Visit Diagnoses Not on filedocumented in this encounter
--- OUTSIDE RECORDS SUMMARY | 2022-04-25 16:04 | XMS_ITS | Encounter Summary ---
:1975 Author Organization [facility] Address [address] [place] [address] Care Team Providers Name Role Phone Unavailable Primary Care Provider Unavailable Encounter Details Date Type Department Care Team Description 07/11/2013 Hospital Encounter [facility] ANTICOAG Provider, His torical Social History [...] Notes Miscellaneous - Khadar Medina, RMichaelN. - 09/05/2013 11:39 AM CDT Anticoagulation Patient Intake Anticoagulation Patient Intake Entered On: 09/05/2013 11:39 CDT Performed On: 09/05/2013 11:39 CDT by KHADAR MEDINA RN Plan INR goal range : 2.0 - 3.0 Duration of Therapy : Lifelong Tablet Size : 5 mg KHADAR MEDINA RN - 09/05/2013 11:39 CDT Anticoagulation Management Plan Grid Date : 09/05/2013 CDT Location of INR sample : Clinic Type of Sample : Venous INR Result : 2.65 Warfarin Dose : 5mg Mon, Wed, Fri, & 2.5mg all other days Total Weekly Warfarin Dose : 25 Comment : ly/called to Mom/Fabiola Recommend Recheck : One month Plan completed by : KHADAR Mae RN - 09/05/2013 11:39 CDT Source: [facility] [employer] Document Id: [id number] CDT!16 Miscellaneous - Khadar Medina R.N. - 09/05/2013 11:07 AM CDT Anticoagulation Patient Intake Anticoagulation Patient Intake Entered On: 09/05/2013 11:39 CDT Performed On: 09/05/2013 11:07 CDT by KHADAR MEDINA RN Plan INR goal range : 2.0 - 3.0 Duration of Therapy : Lifelong Tablet Size : 5 mg KHADAR MEDINA RN - 09/05/2013 11:07 CDT Anticoagulation Management Plan Grid Date : 09/05/2013 CDT Location of INR sample : Clinic Type of Sample : Venous INR Result : 2.65 Warfarin Dose : 5mg Mon, Wed, Fri, & 2.5mg all other days Total Weekly Warfarin Dose : 25 Comment : ly/called to Mom/Fabiola Recommend Recheck : One month (Comment: 10/03/2013 [KHADAR MEDINA RN - 09/05/2013 11:07 CDT] ) Plan completed by : KHADAR Mae RN - 09/05/2013 11:07 CDT Anticoagulation Assessment / History Primary Physician Anticoagulation : TASHA HENRIQUEZ MD 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 Hue Bellamy Carol: Your Lab today was: INR 2.06 07/11/2013 Your target range for your condition is: 2 - 3 You should: CONTINUE YOUR CURRENT DOSE Your Coumadin Tablet Strength should be: 5 mg Daily Dose: SUN:2.5mg MON:5mg TUE:2.5mg WED:5mg THUR:2.5mg FRI:5mg SAT:2.5mg Number of Pills to take each day: SUN:06/27 MON:1 TUE:2 WED:1 THUR:2 FRI:1 SAT:2 Your next lab appointment is scheduled for: 08/08/2013 at [facility]. [facility] labs should be drawn before 3:00 PM. [facility] labs should be drawn before 4:00 PM. If you have questions regarding any of the above information or feel the information is not accurateplease call [phone] or ext. [phone]. Thank you, Eliana Myers [facility] in [place] INR Clinic staff: Eliana Farooq, RN; Antonia Mcclellan, RN; Eliana Myers, RN; Fina Peres, RN; Ermelinda Casas, RN; Mima Campo, RN; Khadar Medina RN Source: [facility] RWHXTRANSXRTFSYS Document Id: [id number] documented in this encounter Plan of Treatment Not on filedocumented as of this encounter Visit Diagnoses Not on filedocumented in this encounter
--- OUTSIDE RECORDS SUMMARY | 2022-04-25 16:04 | XMS_ITS | Encounter Summary ---
:1975 Author Organization [facility] Address [address] [place] [address] Care Team Providers Name Role Phone Unavailable Primary Care Provider Unavailable Encounter Details Date Type Department Care Team Description 04/26/2013 Hospital Encounter HX [facility] Juan Manuel Limon M.D. [address] [place] [phone] (Wo rk) Social History Tobacco Use [...] Date/Time Associated Comments Diagnosis PROTHROMBIN TIME Routine 04/26/2013 9:46 AM Resul ts for this (PT), P CDT procedure are i n the results section. documented in this encounter Results (ABNORMAL) PT (Prothrombin Time) with INR (04/26/2013 9:46 AM CDT) [facility] Method Time Signature Prothrombin 56.7 (H) 9.3 - 11.3 POWERCHART Time, P SECONDS INR 5.89 (C) 0.90 - 1.10 POWERCHART Comment: Results called to Antonia Velasquez RN ( [facility]) at 04/26/2013 10:28:20 CDT, by Chaitanya P. Critical lab value read back Yes. Specimen (Source) Anatomical Collection Method Collection Time Re ceived Time Location / / Volume Laterality Blood 04/26/2013 9:46 AM CDT Sridhar Garibay M.D. LAB BLOOD ADD-ON Performing Organization Address City/State/ZIP Code Phon e Number POWERCHART documented in this encounter Visit Diagnoses Not on filedocumented in this encounter
--- OUTSIDE RECORDS SUMMARY | 2022-04-25 16:04 | XMS_ITS | Encounter Summary ---
:1975 Author Organization [facility] Address [address] [place] [address] Care Team Providers Name Role Phone Unavailable Primary Care Provider Unavailable Encounter Details Date Type Department Care Team Description 04/18/2013 - Hospital Encounter [facility]X [facility] Mariangel Socorro e 12/15/2013 SRV L, TETE, C.N.P., D.N.P. [address] [place] [address] Social History Tobacco Use Types Packs/Day Years [...]
--- OUTSIDE RECORDS SUMMARY | 2022-04-25 16:04 | XMS_ITS | Encounter Summary ---
:1975 Author Organization [facility] Address [address] [place] [address] Care Team Providers Name Role Phone Unavailable Primary Care Provider Unavailable Encounter Details Date Type Department Care Team Description 05/10/2013 Hospital Encounter [facility]X [facility] Marsha Garibay M.D. [address] [place], [place] [address] (Wo rk) Social History [...] documented as of this encounter Progress Notes Sridhar Garibay M.D. - 05/10/2013 2:30 PM CST [id number] This office note has been dictated. Source: [facility] Document Id: [id number] Electronically signed by Conversion, [facility] Drum Sealer [id number] at 11/21/2016 2:09 PM CDT Sridhar Garibay M.D. - 05/10/2013 2:30 PM CST [id number] CLINIC ENCOUNTER SUBJECTIVE: Patient presents today for a recheck. She has a history of heart surgery, see previous note, at [facility]. She is doing well. She is active. She is off her pain medications. No complaints. She also had mild elevation of her creatinine suspected secondary to Lasix. She stopped that as well as the Lopressor. Repeat BMP shows improved creatinine, still very mildly elevated though. OBJECTIVE: General: Patient alert and oriented, pleasant and cooperative with exam. No acute distress. Vitals: See nursing note. Head: Atraumatic, normocephalic. Eyes: Unremarkable. Discs are sharp bilaterally. Ears: Tympanic membranes appear normal bilaterally. Nose: Nares clear. Oropharynx: Clear. Neck: Supple without lymphadenopathy or thyromegaly. Lungs: Clear to auscultation bilaterally. Heart: Regular rate and rhythm, normal S1, S2 without murmurs, rubs or gallops. Abdomen: Soft, nontender, non-distended, no hepatosplenomegaly or other masses appreciated. There are positive bowel sounds. Extremities: No clubbing, cyanosis or edema. Neurologic Exam: Cranial nerves 2-12 are grossly intact. Sensation and motor strength grossly intact throughout. Reflexes are 2+ and symmetric. ASSESSMENT: 1. 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 2. Mild elevation of creatinine. PLAN: She has stopped the Lasix, the Lopressor. She is off her pain medications. I told them normally cardiology would do return to work for her but they want my advice and I think she will be okay and I gave them a note for that but no lifting more than ten pounds. She can follow up in six months. She can repeat creatinine then. It may have been slightly elevated due to Lasix. It is improved. Sridhar Garibay M.D. ECM/st/law cc: Source: [facility] RWHXTRANSXRTFSYS Document Id: [id number] Electronically signed by Conversion, [facility] Drum Sealer [id number] at 11/21/2016 2:09 PM CDT documented in this encounter Miscellaneous Notes Miscellaneous - Sridhar Garibay M.D. - 05/10/2013 2:30 PM CST [id number] 05/10/2013 Hue Bellamy Carol [address] [place] [phone] (home) : 1975 To Whom it May Concern: Ms. Hue Medina may return to work. No lifting more than 10 pounds. She was seen in our clinic today (05/10/2013). Please contact me for questions or concerns. Sincerely, [facility] [address] [place] [address] Source: [facility] RWHXTRANSXRTFSYS Document Id: [id number] documented in this encounter Plan of Treatment Not on filedocumented as of this encounter Visit Diagnoses Not on filedocumented in this encounter
--- OUTSIDE RECORDS SUMMARY | 2022-04-25 16:04 | XMS_ITS | Encounter Summary ---
:1975 Author Organization [facility] Address [address] [place] [address] Care Team Providers Name Role Phone Unavailable Primary Care Provider Unavailable Encounter Details Date Type Department Care Team Description 09/02/2013 Hospital Encounter HX [facility] Marsha Garibay M.D. [address] [place], [place] [address] (Wo rk) Social History [...] Telephone Encounter - Love Medina R.N. - 09/02/2013 12:00 AM CDT [id number] Last visit: 05/10/2013 BP Readings from Last 1 Encounters: 05/10/13 100/60 Hypercholesterolemia Labs: AST 31 02/19/2013 ALT 28 02/19/2013 CHOL 217 08/09/2012 TRIG 149 08/09/2012 LDL 141 08/09/2012 HDL 46 08/09/2012 Prescription approved per RN refill protocol. Follow-up in 6 months noted at 04/2013 provider visit Source: [facility] Document Id: [id number] documented in this encounter Plan of Treatment Not on filedocumented as of this encounter Visit Diagnoses Not on filedocumented in this encounter
--- OUTSIDE RECORDS SUMMARY | 2022-04-25 16:04 | XMS_ITS | Encounter Summary ---
:1975 Author Organization [facility] Address [address] [place] [address] Care Team Providers Name Role Phone Unavailable Primary Care Provider Unavailable Encounter Details Date Type Department Care Team Description 08/08/[address] [facility]TICO[facility] Provider, His torical Social History Tobacco [...] encounter Miscellaneous Notes Miscellaneous - Ermelinda Casas R.N. - 06/16/2014 10:00 AM CST Custom Result Letter 16 June 2014 DORITA SHEFFIELD [address] [facility] [id number] Dear DORITA SHEFFIELD, Dear Colleague, Our patient, Dorita Sheffield, 73 is currently away from the [facility] and remains on Warfarin (Coumadin) therapy for thrombophlebitis, diagnosis code 451.19. INR monitoring is required to continue the consistent management of our patient. Please draw an INR on a PRN basis and fax the results to: [facility] [place] [address] Fax: Phone: Thank You for your cooperation. [facility] INR Clinic staff: Eliana Farooq, RN; Antonia Mcclellan, RN; Eliana Myers, RN; Fina Peres, RN; Ermelinda Casas, RN; Mima Campo, RN; Love Medina, RN Provider signature: Provider Dr. Sridhar Garibay Sincerely, ERMELINDA CASAS Electronic Signature Electronically Signed By: ERMELINDA CASAS RN On: 16 June 2014 This document has images extracted. Source: [facility] POWERCHART Document Id: [id number] Electronically signed by Conversion [facility] Application Development Consultant [id number] at 11/22/2016 5:12 PM CDT documented in this encounter Plan of Treatment Not on filedocumented as of this encounter Visit Diagnoses Not on filedocumented in this encounter
--- OUTSIDE RECORDS SUMMARY | 2022-04-25 16:04 | XMS_ITS | Encounter Summary ---
:1975 Author Organization [facility] Address [address] [place] [address] Care Team Providers Name Role Phone Unavailable Primary Care Provider Unavailable Encounter Details Date Type Department Care Team Description 05/02/2013 Hospital Encounter HX NO MAPPING Provider, Historical [...]
--- OUTSIDE RECORDS SUMMARY | 2022-04-25 16:04 | XMS_ITS | Encounter Summary ---
:1975 Author Organization [facility] Address [address] [place] [address] Care Team Providers Name Role Phone Unavailable Primary Care Provider Unavailable Encounter Details Date Type Department Care Team Description 12/26/2013 Hospital Encounter HX [facility] Marsha Henriquez M.D. [address] [place], [place] [address] (Wo rk) Social History [...] of this encounter Miscellaneous Notes Miscellaneous - Faviola Hoskins R.N. - 12/31/2013 3:31 PM CDT Med Management Document Contains Addenda Addendum by TASHA HENRIQUEZ MD on 01 January 2014 07:21:31 CDT From: TASHA HENRIQUEZ MD Sent: 01/01/2014 07:21:30 CDT Subject: RE:Med Management Approved Order:warfarin (warfarin 5 mg oral tablet) See Instructions 5mg Mon, Wed, Fri, & 2.5mg all otherdays or as directed by the INR clinic as of 09/05/2013 Qty: 30 tab(s) Refills: 6 Substitutions Allowed Route To [employer] Medminder [id number] Signed by TASHA HENRIQUEZ MD 01/01/2014 07:21:23 From: FAVIOLA HOSKINS RN To: TASHA HENRIQUEZ MD; Sent: 12/31/2013 15:31:30 CDT Subject: Med Management surging refills not reviewed by RN refill protocol On hold pending signature Order:warfarin (warfarin 5 mg oral tablet) See Instructions 5mg Mon, Wed, Fri, & 2.5mg all otherdays or as directed by the INR clinic as of 09/05/2013 Qty: 30 tab(s) Refills: 6 Substitutions Allowed Route To [employer] Medminder [id number] Documented Discontinue:warfarin (warfarin 5 mg oral tablet) Signed by FAVIOLA HOSKINS RN 12/31/2013 15:30:34 Source: [facility] POWERCHART Document Id: [id number] Electronically signed by Lay [facility] [id number] at 11/22/2016 12:47 AM CDT Miscellaneous - Rivka Peres, RMichaelN. - 12/26/2013 10:14 AM CDT Anticoagulation Patient Intake Anticoagulation Patient Intake Entered On: 12/26/2013 10:17 CDT Performed On: 12/26/2013 10:14 CDT by RIVKA PERES RN Plan INR goal range : 2.0 - 3.0 Duration of Therapy : Lifelong Tablet Size : 5 mg RIVKA EPRES RN - 12/26/2013 10:14 CDT Anticoagulation Management Plan Grid Date : [...] Plan completed by : darya BURGESS JM RIVKA Celis RN - 12/26/2013 10:14 CDT RIVKA PERES RN - 12/26/2013 10:14 CDT RIVKA PERES RN - 12/26/2013 10:14 CDT RIVKA PERES RN - 12/26/2013 10:14 CDT Date : 12/26/2013 CDT Location of INR sample : Lab Type of Sample : Venous INR Result : 2.79 Warfarin Dose : 5mg mon/wed/fri and 2.5mg all other days Total Weekly Warfarin Dose : 25 Comment : called to Fabiola Recommend Recheck : Other: 5 weeks Plan completed by : RIVKA FARLEY RN - 12/26/2013 10:14 CDT Anticoagulation Assessment / History Visit : Phone management Plan of Care Date : 01/29/2008 CDT Primary Physician Anticoagulation : TASHA HNERIQUEZ MD 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 - 12/26/2013 9:59 AM CDT Results Notification From: SUDHA ARCOS V RN ( Anticoagulation Nurse) To: Anticoagulation Nurse; Sent: 12/26/2013 09:59:16 CDT Show up: 12/26/2013 10:00:00 CDT Subject: Results Notification Results: Date Result Name Value Ref Range 12/26/2013 08:00 PT 27.5 second(s) 12/26/2013 08:00 INR 2.79 INR (0.80 - 1.10) Source: [facility] POWERCHART Document Id: [id number] Electronically signed by Conversion, [facility] Transmission Builder [id number] at 11/22/2016 12:47 AM CDT documented in this encounter Plan of Treatment Not on filedocumented as of this encounter Procedures Procedure Name Priority Date/Time Associated Comments Diagnosis PROTHROMBIN TIME Routine 12/26/2013 8:00 AM Resul ts for this (PT), P CDT procedure are i n the results section. documented in this encounter Results (ABNORMAL) PT (Prothrombin Time) with INR (12/26/2013 8:00 AM CDT) [facility] Method Time Signature Prothrombin 27.5 SECONDS POWERCHART Time, P INR 2.79 (H) 0.80 - 1.10 POWERCHART INR Comment: Recommended INR for prophylaxis/treatmen t of Venous Thrombosis, Pulmonary Embolism, Myocardial Infarction, and Embolism from Atrial Fibrillation is 2.0- 3.0 (Standard Therapy) Recommended INR for Mechanical Heart Tejal ves and recurrent Systemic Embolism is 2.5-3.5 (Intensive Therapy) Specimen (Source) Anatomical Collection Method Collection Time Re ceived Time Location / / Volume Laterality Blood 12/26/2013 8:00 AM CDT Tasha Henriquez M.D. LAB BLOOD ADD-ON Performing Organization Address City/State/ZIP Code Phon e Number POWERCHART documented in this encounter Visit Diagnoses Not on filedocumented in this encounter
--- OUTSIDE RECORDS SUMMARY | 2022-04-25 16:05 | XMS_ITS | Encounter Summary ---
:1975 Author Organization [facility] Address [address] [place] [address] Care Team Providers Name Role Phone Unavailable Primary Care Provider Unavailable Encounter Details Date Type Department Care Team Description 04/04/2013 Hospital Encounter HX [facility] Andrea Whipple M.D. [address] [place], [place] [address] (Wo rk) Social History Tobacco Use Types Packs/Day Years Used Date Smoking Tobacco: Never Assessed Sex Assigned at Date Recorded Not on file documented as of this encounter Miscellaneous Notes Miscellaneous - Sridhar Garibay M.D. - 04/04/2013 12:00 AM CDT [id number] April 04, 2013 Dear Colleague, Our patient, Hue Medina, 1975 is currently in the [place], [place] area following heart surgery. 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 . INR monitoring is required to continue the consistent management of our patient. Please draw an INR on a PRN basis and fax the results to: [facility] [place] [address] Fax: Phone: Thank You for your cooperation. Sincerely, Sridhar Garibay, ANGELINE Source: [facility] Document Id: [id number] documented in this encounter Plan of Treatment Not on filedocumented as of this encounter Visit Diagnoses Not on filedocumented in this encounter
--- OUTSIDE RECORDS SUMMARY | 2022-04-25 16:05 | XMS_ITS | Encounter Summary ---
:1975 Author Organization [facility] Address [address] [place] [address] Care Team Providers Name Role Phone Unavailable Primary Care Provider Unavailable Encounter Details Date Type Department Care Team Description 04/25/2013 Hospital Encounter HX NO MAPPING Provider, Historical [...]
--- OUTSIDE RECORDS SUMMARY | 2022-04-25 16:05 | XMS_ITS | Encounter Summary ---
:1975 Author Organization [facility] Address [address] [place] [address] Care Team Providers Name Role Phone Unavailable Primary Care Provider Unavailable Encounter Details Date Type Department Care Team Description 04/25/2013 Hospital Encounter HX [facility] Juan Manuel Limon M.D. [address] [place] [phone] (Wo rk) Social History Tobacco Use [...] Date/Time Associated Comments Diagnosis PROTHROMBIN TIME Routine 04/25/2013 9:55 AM Resul ts for this (PT), P CDT procedure are i n the results section. documented in this encounter Results (ABNORMAL) PT (Prothrombin Time) with INR (04/25/2013 9:55 AM CDT) [facility] Method Time Signature Prothrombin 54.4 (H) 9.3 - 11.3 POWERCHART Time, P SECONDS INR 5.64 (C) 0.90 - 1.10 POWERCHART Comment: Results called to Harvey De La O ([facility]) at 1140_, by Olive Manzo_. Critical lab value read back yes _. Specimen (Source) Anatomical Collection Method Collection Time Re ceived Time Location / / Volume Laterality Blood 04/25/2013 9:55 AM CDT Sridhar Garibay M.D. LAB BLOOD ADD-ON Performing Organization Address City/State/ZIP Code Phon e Number POWERCHART documented in this encounter Visit Diagnoses Not on filedocumented in this encounter
--- OUTSIDE RECORDS SUMMARY | 2022-04-25 16:05 | XMS_ITS | Encounter Summary ---
:1975 Author Organization [facility] Address [address] [place] [address] Care Team Providers Name Role Phone Unavailable Primary Care Provider Unavailable Encounter Details Date Type Department Care Team Description 04/10/2013 Hospital Encounter HX NO MAPPING Provider, Historical [...]
--- OUTSIDE RECORDS SUMMARY | 2022-04-25 16:05 | XMS_ITS | Encounter Summary ---
:1975 Author Organization [facility] Address [address] [place] [address] Care Team Providers Name Role Phone Unavailable Primary Care Provider Unavailable Encounter Details Date Type Department Care Team Description 04/05/2013 Hospital Encounter HX [facility] Sunni August, TETE, C.N.P., D. N.P. [address] [place] [address] (Wo rk) Social History Tobacco Use Types [...]
--- OUTSIDE RECORDS SUMMARY | 2022-04-25 16:05 | XMS_ITS | Encounter Summary ---
:1975 Author Organization [facility] Address [address] [place] [address] Care Team Providers Name Role Phone Unavailable Primary Care Provider Unavailable Encounter Details Date Type Department Care Team Description 04/08/2013 Hospital Encounter HX NO MAPPING Provider, Historical [...]
--- OUTSIDE RECORDS SUMMARY | 2022-04-25 16:05 | XMS_ITS | Encounter Summary ---
:1975 Author Organization [facility] Address [address] [place] [address] Care Team Providers Name Role Phone Unavailable Primary Care Provider Unavailable Encounter Details Date Type Department Care Team Description 04/22/[address] [facility] Juan Manuel Limon M.D. [address] [place] [phone] (Wo rk) Social History Tobacco Use [...] Date/Time Associated Comments Diagnosis PROTHROMBIN TIME Routine 04/22/2013 9:12 AM Resul ts for this (PT), P CDT procedure are i n the results section. documented in this encounter Results (ABNORMAL) PT (Prothrombin Time) with INR (04/22/2013 9:12 AM CDT) [facility] Method Time Signature Prothrombin 16.3 (H) 9.3 - 11.3 POWERCHART Time, P SECONDS INR 1.61 (H) 0.90 - 1.10 POWERCHART Specimen (Source) Anatomical Collection Method Collection Time Re ceived Time Location / / Volume Laterality Blood 04/22/2013 9:12 AM CDT rSidhar Garibay M.D. LAB BLOOD ADD-ON Performing Organization Address City/State/ZIP Code Phon e Number POWERCHART documented in this encounter Visit Diagnoses Not on filedocumented in this encounter
--- OUTSIDE RECORDS SUMMARY | 2022-04-25 16:05 | XMS_ITS | Encounter Summary ---
:1975 Author Organization [facility] Address [address] [place] [address] Care Team Providers Name Role Phone Unavailable Primary Care Provider Unavailable Encounter Details Date Type Department Care Team Description 04/08/2013 Hospital Encounter HX [facility] ANTICOAG Provider, His torical Social [...]
--- OUTSIDE RECORDS SUMMARY | 2022-04-25 16:05 | XMS_ITS | Encounter Summary ---
:1975 Author Organization [facility] Address [address] [place] [address] Care Team Providers Name Role Phone Unavailable Primary Care Provider Unavailable Encounter Details Date Type Department Care Team Description 04/10/2013 Hospital Encounter HX [facility] ANTICOAG Provider, His torical Social [...]
--- OUTSIDE RECORDS SUMMARY | 2022-04-25 16:05 | XMS_ITS | Encounter Summary ---
:1975 Author Organization [facility] Address [address] [place] [address] Care Team Providers Name Role Phone Unavailable Primary Care Provider Unavailable Encounter Details Date Type Department Care Team Description 04/12/2013 Hospital Encounter HX [facility] ANTICOAG Provider, His torical Social [...] Date/Time Associated Comments Diagnosis PROTHROMBIN TIME Routine 04/12/2013 2:41 PM Resul ts for this (PT), P CDT procedure are i n the results section. documented in this encounter Results PT (Prothrombin Time) with INR (04/12/2013 2:41 PM CDT) P athologist Signature INR 2.26 [facility] Specimen (Source) Anatomical Collection Method Collection Time Re ceived Time Location / / Volume Laterality 04/12/2013 2:41 PM CDT Historical Provider LAB BLOOD ADD-ON Performing Organization Address City/State/ZIP Code Phon e Number [facility] documented in this encounter Visit Diagnoses Not on filedocumented in this encounter
--- OUTSIDE RECORDS SUMMARY | 2022-04-25 16:05 | XMS_ITS | Encounter Summary ---
:1975 Author Organization [facility] Address [address] [place] [address] Care Team Providers Name Role Phone Unavailable Primary Care Provider Unavailable Encounter Details Date Type Department Care Team Description 04/26/2013 Hospital Encounter HX [facility] Andrea Whipple M.D. [address] [place], [place] [address] (Wo rk) Social History [...] this encounter Miscellaneous Notes Telephone Encounter - Antonia Mcclellan - 04/26/2013 12:00 AM CDT [id number] Prescription approved per RN refill protocol. Pt currently has 5 mg tabs, unable to get needed dose with 5 mg tabs. Last visit:04/12/13 BP Readings from Last 1 Encounters: 04/12/13 86/60 Hypercholesterolemia Labs: AST 31 02/19/2013 ALT 28 02/19/2013 CHOL 217 08/09/2012 TRIG 149 08/09/2012 HDL 46 08/09/2012 LDL 141 08/09/2012 INR 5.89 04/26/2013 [facility] Document Id: [id number] documented in this encounter Plan of Treatment Not on filedocumented as of this encounter Visit Diagnoses Not on filedocumented in this encounter
--- OUTSIDE RECORDS SUMMARY | 2022-04-25 16:05 | XMS_ITS | Encounter Summary ---
:1975 Author Organization [facility] Address [address] [place] [address] Care Team Providers Name Role Phone Unavailable Primary Care Provider Unavailable Encounter Details Date Type Department Care Team Description 04/19/2013 Hospital Encounter HX NO MAPPING Provider, Historical [...]
--- OUTSIDE RECORDS SUMMARY | 2022-04-25 16:05 | XMS_ITS | Encounter Summary ---
:1975 Author Organization [facility] Address [address] [place] [address] Care Team Providers Name Role Phone Unavailable Primary Care Provider Unavailable Encounter Details Date Type Department Care Team Description 04/26/2013 Hospital Encounter HX [facility] ANTICOAG Provider, His torical Social History [...]
--- OUTSIDE RECORDS SUMMARY | 2022-04-25 16:05 | XMS_ITS | Encounter Summary ---
:1975 Author Organization [facility] Address [address] [place] [address] Care Team Providers Name Role Phone Unavailable Primary Care Provider Unavailable Encounter Details Date Type Department Care Team Description 04/12/2013 Hospital Encounter HX [facility] Marsha Garibay M.D. [address] [place], [place] [address] (Wo rk) Social [...] encounter Progress Notes Sridhar Garibay M.D. - 04/12/2013 3:10 PM CDT [id number] Quick Note: Please call mother with results. Her creatinine is a little elevated. It could be due to the lasix which she stopped. Please have her recheck bmp before I see her in one month. Source: [facility] Document Id: [id number] Electronically signed by Conversion, [facility] Specimen Accessioner [id number] at 11/21/2016 7:53 PM CDT Shruti Raman, NehalPMichaelNMichael - 04/12/2013 3:10 PM CDT [id number] Hue Medina is a 38 year old female. Patient received: FLUZONE INJECTION Patient Questionaire: Did you receive a flu vaccine last year? I have a fever or feel ill today? No I have an allergy to eggs, gelatin or thimerosal? No I have had a reaction to the flu vaccine the past? No I have had Guillain[place] syndrome? No I have a Latex Allergy? No VIS information given Source: [facility] Document Id: [id number] Electronically signed by Conversion, [facility] Specimen Accessioner [id number] at 11/21/2016 7:53 PM Sridhar Barker M.D. - 04/12/2013 3:10 PM CDT [id number] This office note has been dictated. Source: [facility] Document Id: [id number] Electronically signed by Conversion, [facility] Specimen Accessioner [id number] at 11/21/2016 7:53 PM PATRICIAT Sridhar Garibay M.D. - 04/12/2013 3:10 PM CDT [id number] CLINIC ENCOUNTER SUBJECTIVE: Patient presents today for followup after surgery at [facility]. I saw her and noted a history of abnormal echo. I had her see cardiology. 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 Surgery was successful and she is doing well. She had some atelectasis. They wanted repeat x-ray. It shows still some atelectasis. She is not able to tolerate the albuterol very well. She needed aggressive diuresis after surgery and has been on Lasix but her weight is stable now. No edema. They would like to get her off of that and I think she can. They started Lopressor as well to control heart rate. Her blood pressure is a little low. I think with stopping the Lasix she should be okay to continue Lopressor until she sees cardiology. She is also on Ultram which they can stop. She also got a letter from [facility] about her mild elevation of her TSH. I did do a workup in the past and she has no Mary Ann's. I think this is just normal for her unless it gets a lot higher. PAST MEDICAL HISTORY/FAMILY HISTORY/SOCIAL HISTORY/MEDICATIONS/ALLERGIES: In the chart and are reviewed today. REVIEW OF SYSTEMS: General, eyes, ENT, neck, respiratory, cardiovascular, gastrointestinal, genitourinary, lymphatic, musculoskeletal, skin, neurologic-negative except for that stated above. OBJECTIVE: General: Patient alert and oriented, pleasant [...] masses appreciated. There are positive bowel sounds. Extremities - no clubbing, cyanosis or edema. Neurologic Exam: Cranial nerves 2-12 are grossly intact. Sensation and motor strength grossly intact throughout. Reflexes are 2+ and symmetric. The wound is healing nicely. No infection. ASSESSMENT: 1. Transitional atrioventricular canal defect status post repair at [facility] on 03/29/2013. 2. History of mild elevation of her TSH but no Mary Ann's. PLAN: She can stop the Lasix and check blood pressures. Follow up in a month with me. She has followup in three months with cardiology. They will check the blood pressures in the meantime. Will check a basic metabolic panel today since she was on Lasix. At some point could consider evaluation for obstructive sleep apnea. Otherwise she will continue Lopressor until she sees cardiology but could stop that if needed as well. It is new. She can discontinue the Ultram. She probably will then follow up with me in six months and then annually after that. She is reassured regarding her chest x-ray with atelectasis. She should continue deep breathing and can retry the albuterol if she needs to. Chart was reviewed back to 11/08/2011. Sridhar Garibay M.D. RADAMES/st/law cc: Source: [facility] Document Id: [id number] documented in this encounter Plan of Treatment Not on filedocumented as of this encounter Procedures Procedure Name Priority Date/Time Associated Comments Diagnosis HX UREA NITROGEN Routine 04/12/2013 4:29 PM Resul ts for this CDT procedure are i n the results section. HX AGAP Routine 04/12/2013 4:29 PM Results f or this CDT procedure are i n the results section. CREATININE WITH Routine 04/12/2013 4:29 PM Result s for this EGFR, P CDT procedure are i n the results section. CREATININE WITH Routine 04/12/2013 4:29 PM Result s for this EGFR, P CDT procedure are i n the results section. SODIUM, S/P Routine 04/12/2013 4:29 PM Results f or this CDT procedure are i n the results section. POTASSIUM, S/P Routine 04/12/2013 4:29 PM Results for this CDT procedure are i n the results section. GLUCOSE, RANDOM, S/P Routine 04/12/2013 4:29 PM R esults for this CDT procedure are i n the results section. CREATININE WITH Routine 04/12/2013 4:29 PM Result s for this EGFR, S/P CDT procedure are i n the results section. CHLORIDE, S/P Routine 04/12/2013 4:29 PM Results for this CDT procedure are i n the results section. BICARBONATE, B/S/P Routine 04/12/2013 4:29 PM Res ults for this CDT procedure are i n the results section. CALCIUM, TOT, S/P Routine 04/12/2013 4:29 PM Resu lts for this CDT procedure are i n the results section. documented in this encounter Results Calcium, Total (04/12/2013 4:29 PM CDT) P athologist Signature Calcium, Total, 10.1 MGDL [facility] Specimen (Source) Anatomical Collection Method Collection Time Re ceived Time Location / / Volume Laterality 04/12/2013 4:29 PM CDT Historical Provider LAB BLOOD ADD-ON Performing Organization Address City/State/ZIP Code Phon e Number [facility] Creatinine with Estimated GFR (MDRD), Plasma (04/12/2013 4:29 PM CDT) P athologist Signature eGFR 55 [id number] [facility] Black/ [facility] [place] LAB Specimen (Source) Anatomical Collection Method Collection Time Re ceived Time Location / / Volume Laterality 04/12/2013 4:29 PM CDT Historical Provider LAB BLOOD ADD-ON Performing Organization Address City/State/ZIP Code Phon e Number [facility] Creatinine with Estimated GFR (MDRD), Plasma (04/12/2013 4:29 PM CDT) P athologist Signature HXeGFR (MDRD) 46 [id number] [facility] Specimen (Source) Anatomical Collection Method Collection Time Re ceived Time Location / / Volume Laterality 04/12/2013 4:29 PM CDT Historical Provider LAB BLOOD ADD-ON Performing Organization Address City/State/ZIP Code Phon e Number [facility] Creatinine with Estimated GFR (MDRD) (04/12/2013 4:29 PM CDT) P athologist Signature Creatinine 1.30 MGDL [facility] Specimen (Source) Anatomical Collection Method Collection Time Re ceived Time Location / / Volume Laterality 04/12/2013 4:29 PM CDT Historical Provider LAB BLOOD ADD-ON Performing Organization Address City/State/ZIP Code Phon e Number [facility] HX UREA NITROGEN (04/12/2013 4:29 PM CDT) P athologist Signature Urea Nitrogen, 20 MGDL [facility] 24 HR, U [facility] Specimen (Source) Anatomical Collection Method Collection Time Re ceived Time Location / / Volume Laterality 04/12/2013 4:29 PM CDT Historical Provider LAB HISTORICAL ORDERS Performing Organization Address City/State/ZIP Code Phon e Number [facility] Glucose, Random (04/12/2013 4:29 PM CDT) P athologist Signature Glucose 102 MGDL [facility] Specimen (Source) Anatomical Collection Method Collection Time Re ceived Time Location / / Volume Laterality 04/12/2013 4:29 PM CDT Historical Provider LAB BLOOD TROPONIN Performing Organization Address City/State/ZIP Code Phon e Number [facility] HX AGAP (04/12/2013 4:29 PM CDT) P athologist Signature Anion Gap 12 MMOLL [facility] Specimen (Source) Anatomical Collection Method Collection Time Re ceived Time Location / / Volume Laterality 04/12/2013 4:29 PM CDT Historical Provider LAB HISTORICAL ORDERS Performing Organization Address City/State/ZIP Code Phon e Number [facility] Bicarbonate (04/12/2013 4:29 PM CDT) P athologist Signature HX Carbon 30 MMOLL [facility] Dioxide [facility] Specimen (Source) Anatomical Collection Method Collection Time Re ceived Time Location / / Volume Laterality 04/12/2013 4:29 PM CDT Historical Provider LAB BLOOD ADD-ON Performing Organization Address City/State/ZIP Code Phon e Number [facility] Chloride (04/12/2013 4:29 PM CDT) P athologist Signature Chloride, S 102 MMOLL [facility] Specimen (Source) Anatomical Collection Method Collection Time Re ceived Time Location / / Volume Laterality 04/12/2013 4:29 PM CDT Historical Provider LAB BLOOD ADD-ON Performing Organization Address City/State/ZIP Code Phon e Number [facility] Potassium, S (04/12/2013 4:29 PM CDT) P athologist Signature Potassium, S 4.7 MMOLL [facility] Specimen (Source) Anatomical Collection Method Collection Time Re ceived Time Location / / Volume Laterality 04/12/2013 4:29 PM CDT Historical Provider LAB BLOOD ADD-ON Performing Organization Address City/State/ZIP Code Phon e Number [facility] Sodium (04/12/2013 4:29 PM CDT) P athologist Signature Sodium, S 144 MMOLL [facility] Specimen (Source) Anatomical Collection Method Collection Time Re ceived Time Location / / Volume Laterality 04/12/2013 4:29 PM CDT Historical Provider LAB BLOOD ADD-ON Performing Organization Address City/State/ZIP Code Phon e Number [facility] documented in this encounter Visit Diagnoses Not on filedocumented in this encounter
--- OUTSIDE RECORDS SUMMARY | 2022-04-25 16:05 | XMS_ITS | Encounter Summary ---
:1975 Author Organization [facility] Address [address] [place] [address] Care Team Providers Name Role Phone Unavailable Primary Care Provider Unavailable Encounter Details Date Type Department Care Team Description 04/08/2013 Hospital Encounter HX [facility] Jose Manuel Villatoro III, M.D. [address] [place] [phone] (Wo rk) Social History Tobacco Use [...] Date/Time Associated Comments Diagnosis PROTHROMBIN TIME Routine 04/08/2013 10:43 Results for this (PT), P AM CDT procedure are i n the results section. documented in this encounter Results (ABNORMAL) PT (Prothrombin Time) with INR (04/08/2013 10:43 AM CDT) [facility] Method Time Signature Prothrombin 15.6 (H) 9.3 - 11.3 POWERCHART Time, P SECONDS INR 1.54 (H) 0.90 - 1.10 POWERCHART Specimen (Source) Anatomical Collection Method Collection Time Re ceived Time Location / / Volume Laterality Blood 04/08/2013 10:43 AM CDT Sridhar Garibay M.D. LAB BLOOD ADD-ON Performing Organization Address City/State/ZIP Code Phon e Number POWERCHART documented in this encounter Visit Diagnoses Not on filedocumented in this encounter
--- OUTSIDE RECORDS SUMMARY | 2022-04-25 16:05 | XMS_ITS | Encounter Summary ---
:1975 Author Organization [facility] Address [address] [place] [address] Care Team Providers Name Role Phone Unavailable Primary Care Provider Unavailable Encounter Details Date Type Department Care Team Description 04/17/2013 Hospital Encounter HX NO MAPPING Provider, Historical [...]
--- OUTSIDE RECORDS SUMMARY | 2022-04-25 16:05 | XMS_ITS | Encounter Summary ---
:1975 Author Organization [facility] Address [address] [place] [address] Care Team Providers Name Role Phone Unavailable Primary Care Provider Unavailable Encounter Details Date Type Department Care Team Description 04/05/2013 Hospital Encounter HX NO MAPPING Provider, Historical [...]
--- OUTSIDE RECORDS SUMMARY | 2022-04-25 16:05 | XMS_ITS | Encounter Summary ---
:1975 Author Organization [facility] Address [address] [place] [address] Care Team Providers Name Role Phone Unavailable Primary Care Provider Unavailable Encounter Details Date Type Department Care Team Description 04/19/2013 Hospital Encounter HX [facility] ANTICOAG Provider, His torical Social [...]
--- OUTSIDE RECORDS SUMMARY | 2022-04-25 16:05 | XMS_ITS | Encounter Summary ---
:1975 Author Organization [facility] Address [address] [place] [address] Care Team Providers Name Role Phone Unavailable Primary Care Provider Unavailable Encounter Details Date Type Department Care Team Description 04/07/2013 Hospital Encounter HX [facility] Provider, Historic al Social History [...] Date/Time Associated Comments Diagnosis PROTHROMBIN TIME Routine 04/07/2013 11:02 Results for this (PT), P AM CDT procedure are i n the results section. documented in this encounter Results PT (Prothrombin Time) with INR (04/07/2013 11:02 AM CDT) P athologist Signature INR 1.50 [facility] Specimen (Source) Anatomical Collection Method Collection Time Re ceived Time Location / / Volume Laterality 04/07/2013 11:02 AM CDT Historical Provider LAB BLOOD ADD-ON Performing Organization Address City/State/ZIP Code Phon e Number [facility] documented in this encounter Visit Diagnoses Not on filedocumented in this encounter
--- OUTSIDE RECORDS SUMMARY | 2022-04-25 16:05 | XMS_ITS | Encounter Summary ---
:1975 Author Organization [facility] Address [address] [place] [address] Care Team Providers Name Role Phone Unavailable Primary Care Provider Unavailable Encounter Details Date Type Department Care Team Description 04/10/2013 Hospital Encounter HX [facility] Jose Manuel Flowers III, M.D. [address] [place] [phone] (Wo rk) Social History Tobacco Use [...] Date/Time Associated Comments Diagnosis PROTHROMBIN TIME Routine 04/10/2013 9:20 AM Resul ts for this (PT), P CDT procedure are i n the results section. documented in this encounter Results (ABNORMAL) PT (Prothrombin Time) with INR (04/10/2013 9:20 AM CDT) [facility] Method Time Signature Prothrombin 17.9 (H) 9.3 - 11.3 POWERCHART Time, P SECONDS INR 1.78 (H) 0.90 - 1.10 POWERCHART Specimen (Source) Anatomical Collection Method Collection Time Re ceived Time Location / / Volume Laterality Blood 04/10/2013 9:20 AM CDT Sridhar Garibay M.D. LAB BLOOD ADD-ON Performing Organization Address City/State/ZIP Code Phon e Number POWERCHART documented in this encounter Visit Diagnoses Not on filedocumented in this encounter
--- OUTSIDE RECORDS SUMMARY | 2022-04-25 16:05 | XMS_ITS | Encounter Summary ---
:1975 Author Organization [facility] Address [address] [place] [address] Care Team Providers Name Role Phone Unavailable Primary Care Provider Unavailable Encounter Details Date Type Department Care Team Description 04/05/2013 Hospital Encounter HX [facility] Juan Manuel Limon M.D. [address] [place] [phone] (Wo rk) Social History Tobacco Use [...] Date/Time Associated Comments Diagnosis PROTHROMBIN TIME Routine 04/05/2013 11:30 Results for this (PT), P AM CDT procedure are i n the results section. documented in this encounter Results (ABNORMAL) PT (Prothrombin Time) with INR (04/05/2013 11:30 AM CDT) [facility] Method Time Signature Prothrombin 21.0 (H) 9.3 - 11.3 POWERCHART Time, P SECONDS INR 2.10 (H) 0.90 - 1.10 POWERCHART Specimen (Source) Anatomical Collection Method Collection Time Re ceived Time Location / / Volume Laterality Blood 04/05/2013 11:30 AM CDT Sridhar Garibay M.D. LAB BLOOD ADD-ON Performing Organization Address City/State/ZIP Code Phon e Number POWERCHART documented in this encounter Visit Diagnoses Not on filedocumented in this encounter
--- OUTSIDE RECORDS SUMMARY | 2022-04-25 16:05 | XMS_ITS | Encounter Summary ---
:1975 Author Organization [facility] Address [address] [place] [address] Care Team Providers Name Role Phone Unavailable [...]
--- OUTSIDE RECORDS SUMMARY | 2022-04-25 16:05 | XMS_ITS | Encounter Summary ---
:1975 Author Organization [facility] Address [address] [place] [address] Care Team Providers Name Role Phone Unavailable Primary Care Provider Unavailable Encounter Details Date Type Department Care Team Description 04/12/2013 Hospital Encounter HX [facility] XRAY Provider, Histori bro Social History Tobacco Use Types Packs/Day Years [...]
--- OUTSIDE RECORDS SUMMARY | 2022-04-25 16:05 | XMS_ITS | Encounter Summary ---
:1975 Author Organization [facility] Address [address] [place] [address] Care Team Providers Name Role Phone Unavailable Primary Care Provider Unavailable Encounter Details Date Type Department Care Team Description 04/12/2013 Hospital Encounter H[facility] Mia Plaza, RMichaelTMichael() [address] [place] [phone] Social History Tobacco Use Types Packs/Day Years [...]
--- OUTSIDE RECORDS SUMMARY | 2022-04-25 16:05 | XMS_ITS | Encounter Summary ---
:1975 Author Organization [facility] Address [address] [place] [address] Care Team Providers Name Role Phone Unavailable Primary Care Provider Unavailable Encounter Details Date Type Department Care Team Description 04/17/2013 Hospital Encounter HX [facility] Parag Brasher M.D. [address] [place] [phone] (Wo rk) Social History Tobacco Use [...] Date/Time Associated Comments Diagnosis PROTHROMBIN TIME Routine 04/17/2013 9:20 AM Resul ts for this (PT), P CDT procedure are i n the results section. documented in this encounter Results (ABNORMAL) PT (Prothrombin Time) with INR (04/17/2013 9:20 AM CDT) [facility] Method Time Signature Prothrombin 85.8 (H) 9.3 - 11.3 POWERCHART Time, P SECONDS INR 9.07 (C) 0.90 - 1.10 POWERCHART Comment: Results called to Sienna Peres (I [facility]) at 10:20_, by Olive Manzo MLT_. Critical lab value read b ack yes_. Specimen (Source) Anatomical Collection Method Collection Time Re ceived Time Location / / Volume Laterality Blood 04/17/2013 9:20 AM CDT Sridhar Garibay M.D. LAB BLOOD ADD-ON Performing Organization Address City/State/ZIP Code Phon e Number POWERCHART documented in this encounter Visit Diagnoses Not on filedocumented in this encounter
--- OUTSIDE RECORDS SUMMARY | 2022-04-25 16:05 | XMS_ITS | Encounter Summary ---
:1975 Author Organization [facility] Address [address] [place] [address] Care Team Providers Name Role Phone Unavailable Primary Care Provider Unavailable Encounter Details Date Type Department Care Team Description 04/22/2013 Hospital Encounter HX NO MAPPING Provider, Historical [...]
--- OUTSIDE RECORDS SUMMARY | 2022-04-25 16:05 | XMS_ITS | Encounter Summary ---
:[address] [facility] Address [address] [place] [address] Care Team Providers Name Role Phone Unavailable Primary Care Provider Unavailable Encounter Details Date Type Department Care Team Description 04/17/2013 Hospital Encounter [facility] [...]
--- OUTSIDE RECORDS SUMMARY | 2022-04-25 16:05 | XMS_ITS | Encounter Summary ---
:1975 Author Organization [facility] Address [address] [place] [address] Care Team Providers Name Role Phone Unavailable Primary Care Provider Unavailable Encounter Details Date Type Department Care Team Description 04/22/2013 Hospital [facility] Sunni Mckeon, TETE, C.N.P., D. N.P. [address] [place] [phone] (Wo rk) Social History Tobacco Use Types Packs/Day Years Used Date Smoking Tobacco: Never Assessed Sex Assigned at Date Recorded Not on file documented as of this encounter Last Filed Vital Signs Vital Sign Reading Time Taken Comments Blood Pressure 92/54 04/22/2013 9:17 AM CDT Pulse 85 04/22/2013 9:17 AM CDT Temperature - - Respiratory Rate - [...] of this encounter Miscellaneous Notes Miscellaneous - Beulah Khalil L.PMichaelN. - 04/22/2013 9:21 AM CDT General Message Document Contains Addenda Addendum by SUNNI MCKEON DNP, ENAMEL SHADER on 22 April 2013 13:06:05 CDT noted. From: BEULAH KHALIL LPN To: SUNNI MCKEON DNP, ENAMEL SHADER; Sent: 04/22/2013 09:21:21 CDT Subject: General Message BP 92/54 p 85 [facility] Document Id: [id number] Miscellaneous - Beulah Khalil, L.P.N. - 04/22/2013 9:17 AM CDT Ambulatory Vitals Height Weight Ambulatory Vitals Height Weight Entered On: 04/22/2013 9:20 CDT Performed On: 04/22/2013 9:17 CDT by BEULAH KHALIL LPN Vitals/Ht/Wt Peripheral Pulse Rate : 85 /min Systolic Blood Pressure : 92 mmHg Diastolic Blood Pressure : 54 mmHg NIBP Mean : 67 mmHg BP Location : Right upper extremity Blood Pressure Cuff Size : Regular BEULAH KHALIL LPN - 04/22/2013 9:17 CDT Source: [employer] Document Id: [id number] CDT!8 documented in this encounter Plan of Treatment Not on filedocumented as of this encounter Visit Diagnoses Not on filedocumented in this encounter
--- OUTSIDE RECORDS SUMMARY | 2022-04-25 16:05 | XMS_ITS | Encounter Summary ---
:1975 Author Organization [facility] Address [address] [place] [address] Care Team Providers Name Role Phone Unavailable Primary Care Provider Unavailable Encounter Details Date Type Department Care Team Description 04/19/2013 Hospital Encounter HX [facility] Parag Brasher M.D. [address] [place] [phone] (Wo rk) Social History Tobacco Use [...] Date/Time Associated Comments Diagnosis PROTHROMBIN TIME Routine 04/19/2013 8:00 AM Resul ts for this (PT), P CDT procedure are i n the results section. documented in this encounter Results (ABNORMAL) PT (Prothrombin Time) with INR (04/19/2013 8:00 AM CDT) [facility] Method Time Signature Prothrombin 51.7 (H) 9.3 - 11.3 POWERCHART Time, P SECONDS INR 5.35 (C) 0.90 - 1.10 POWERCHART Comment: Results called to [facility] [id number] _, by adelina_. Critical lab value read back yes_.04/19/2013 08:38:51 CDT [id number] Specimen (Source) Anatomical Collection Method Collection Time Re ceived Time Location / / Volume Laterality Blood 04/19/2013 8:00 AM CDT Sridhar Garibay M.D. LAB BLOOD ADD-ON Performing Organization Address City/State/ZIP Code Phon e Number POWERCHART documented in this encounter Visit Diagnoses Not on filedocumented in this encounter
--- OUTSIDE RECORDS SUMMARY | 2022-04-25 16:06 | XMS_ITS | Encounter Summary ---
:1975 Author Organization [facility] Address [address] [place] [address] Care Team Providers Name Role Phone Unavailable Primary Care Provider Unavailable Encounter Details Date Type Department Care Team Description 03/08/2013 Hospital Encounter HX [facility] Mima Malagon R[address] [place] [id number] Social History Tobacco Use Types Packs/Day Years Used Date Smoking Tobacco: Never Assessed Sex Assigned at Date Recorded Not on file documented as of this encounter Plan of Treatment Not on filedocumented as of this encounter Visit Diagnoses Not on filedocumented in this encounter
--- OUTSIDE RECORDS SUMMARY | 2022-04-25 16:06 | XMS_ITS | Encounter Summary ---
:1975 Author Organization [facility] Address [address] [place] [address] Care Team Providers Name Role Phone Unavailable Primary Care Provider Unavailable Encounter Details Date Type Department Care Team Description 03/27/2013 Hospital Encounter HX NO MAPPING Social History Tobacco Use Types Packs/Day Years Used Date Smoking Tobacco: Never Assessed Sex Assigned at Date Recorded Not on file documented as of this encounter Plan of Treatment Not on filedocumented as of this encounter Visit Diagnoses Not on filedocumented in this encounter
--- OUTSIDE RECORDS SUMMARY | 2022-04-25 16:06 | XMS_ITS | Encounter Summary ---
:[address] [facility] Address [address] [place] [address] Care Team Providers Name Role Phone Unavailable Primary Care Provider Unavailable Encounter Details Date Type Department Care Team Description 03/26/2013 Hospital Encounter HX [facility] Usman Wynne PRACTICE M.D. [address] [address], [address] [place] [address] (Wo rk) Social History Tobacco Use Types Packs/Day Years Used Date Smoking Tobacco: Never Assessed Sex Assigned at Date Recorded Not on file documented as of this encounter Plan of Treatment Not on filedocumented as of this encounter Visit Diagnoses Not on filedocumented in this encounter
--- OUTSIDE RECORDS SUMMARY | 2022-04-25 16:06 | XMS_ITS | Encounter Summary ---
:1975 Author Organization [facility] Address [address] [place] [address] Care Team Providers Name Role Phone Unavailable Primary Care Provider Unavailable Encounter Details Date Type Department Care Team Description 03/27/2013 Hospital Encounter HX [facility] CARDIOLOGY Rickey Rincon M.D. [address] [place], [place] [phone] (Wo rk) Social History Tobacco Use Types Packs/Day Years Used Date Smoking Tobacco: Never Assessed Sex Assigned at Date Recorded Not on file documented as of this encounter Plan of Treatment Not on filedocumented as of this encounter Visit Diagnoses Not on filedocumented in this encounter
--- OUTSIDE RECORDS SUMMARY | 2022-04-25 16:06 | XMS_ITS | Encounter Summary ---
:1975 Author Organization [facility] Address [address] [place] [address] Care Team Providers Name Role Phone Unavailable Primary Care Provider Unavailable Encounter Details Date Type Department Care Team Description 03/27/2013 Hospital Encounter HX NO MAPPING Provider, Historical Social History Tobacco Use Types Packs/Day Years Used Date Smoking Tobacco: Never Assessed Sex Assigned at Date Recorded Not on file documented as of this encounter Last Filed Vital Signs Vital Sign Reading Time Taken Comments Blood Pressure 124/60 03/27/2013 12:48 PM CDT Pulse - - Temperature - - Respiratory Rate 16 03/27/2013 12:48 PM CDT Oxygen Saturation - - Inhaled Oxygen Concentration - - Weight 77.2 kg (170 lb 3.1 oz) 03/27/2013 6:37 AM CDT Height 147 cm (4' 9.87) 03/27/2013 6:37 AM CDT Body Mass Index 35.73 03/27/2013 6:37 AM CDT documented in this encounter Plan of Treatment Not on filedocumented as of this encounter Visit Diagnoses Not on filedocumented in this encounter
--- OUTSIDE RECORDS SUMMARY | 2022-04-25 16:06 | XMS_ITS | Encounter Summary ---
:1975 Author Organization [facility] Address [address] [place] [address] Care Team Providers Name Role Phone Unavailable Primary Care Provider Unavailable Encounter Details Date Type Department Care Team Description 04/01/2013 Hospital Encounter HX NO MAPPING Provider, Historical Social History Tobacco Use Types Packs/Day Years Used Date Smoking Tobacco: Never Assessed Sex Assigned at Date Recorded Not on file documented as of this encounter Plan of Treatment Not on filedocumented as of this encounter Visit Diagnoses Not on filedocumented in this encounter
--- OUTSIDE RECORDS SUMMARY | 2022-04-25 16:06 | XMS_ITS | Encounter Summary ---
:1975 Author Organization [facility] Address [address] [place] [address] Care Team Providers Name Role Phone Unavailable Primary Care Provider Unavailable Encounter Details Date Type Department Care Team Description 03/07/2013 Hospital Encounter HX [facility] Provider, His torical Social History Tobacco Use Types Packs/Day Years Used Date Smoking Tobacco: Never Assessed Sex Assigned at Date Recorded Not on file documented as of this encounter Plan of Treatment Not on filedocumented as of this encounter Visit Diagnoses Not on filedocumented in this encounter
--- OUTSIDE RECORDS SUMMARY | 2022-04-25 16:06 | XMS_ITS | Encounter Summary ---
:1975 Author Organization [facility] Address [address] [place] [address] Care Team Providers Name Role Phone Unavailable Primary Care Provider Unavailable Encounter Details Date Type Department Care Team Description 03/29/2013 Hospital Encounter HX NO MAPPING Juan Mace C [address] [place], [place] [phone] Social History Tobacco Use Types Packs/Day Years Used Date Smoking Tobacco: Never Assessed Sex Assigned at Date Recorded Not on file documented as of this encounter Plan of Treatment Not on filedocumented as of this encounter Visit Diagnoses Not on filedocumented in this encounter
--- OUTSIDE RECORDS SUMMARY | 2022-04-25 16:06 | XMS_ITS | Encounter Summary ---
:1975 Author Organization [facility] Address [address] [place] [id number] Care Team Providers Name Role Phone Unavailable Primary Care Provider Unavailable Encounter Details Date Type Department Care Team Description 03/29/2013 - 04/04/2013 Hospital Encounter HX RST [facility] 5C Social History Tobacco Use Types Packs/Day Years Used Date Smoking Tobacco: Never Assessed Sex Assigned at Date Recorded Not on file documented as of this encounter Last Filed Vital Signs Vital Sign Reading Time Taken Comments Blood Pressure 100/53 04/04/2013 9:15 AM NIBP - Value from CDT [facility]. Pulse 55 04/04/2013 8:15 AM Value from Ch art[facility]. CDT Temperature - - Respiratory Rate 18 04/04/2013 8:15 AM Value from C [facility]art[facility]. CDT Oxygen Saturation - - Inhaled Oxygen - - Concentration Weight 77.2 kg (170 lb 3.1 04/03/2013 4:42 AM Value fro m [facility]. oz) CDT Height 150 cm (4' 11.06) 03/29/2013 6:02 AM CDT Body Mass Index 34.31 03/29/2013 7:32 AM CDT documented in this encounter Plan of Treatment Not on filedocumented as of this encounter Procedures Procedure Name Priority Date/Time Associated Comments Diagnosis DX CHEST AP OR PA AND Routine 04/04/2013 8:09 AM Results for this LATERAL 2 VIEWS CDT procedure ar e in the results section. ELPN WITH CREATININE Routine 04/04/2013 6:12 AM R esults for this DIANNE, P CDT procedure are i n the results section. PROTHROMBIN TIME (PT), Routine 04/04/2013 6:12 AM Results for this P CDT procedure are i n the results section. CBC WITH DIFFERENTIAL, Routine 04/04/2013 6:12 AM Results for this B CDT procedure are i n the results section. ELPN WITH CREATININE Routine 04/03/2013 4:37 AM R esults for this DIANNE, P CDT procedure are i n the results section. PROTHROMBIN TIME (PT), Routine 04/03/2013 4:37 AM Results for this P CDT procedure are i n the results section. CBC WITHOUT Routine 04/03/2013 4:37 AM Results f or this DIFFERENTIAL, B CDT procedure ar e in the results section. PROTHROMBIN TIME (PT), Routine 04/02/2013 2:26 PM Results for this P CDT procedure are i n the results section. DX CHEST AP OR PA AND Routine 04/02/2013 10:51 Re sults for this LATERAL 2 VIEWS AM CDT procedure ar e in the results section. ECHOCARDIOGRAM Routine 04/02/2013 8:07 AM CDT ELPN WITH CREATININE Routine 04/02/2013 6:08 AM R esults for this DIANNE, P CDT procedure are i n the results section. PROTHROMBIN TIME (PT), Routine 04/02/2013 6:08 AM Results for this P CDT procedure are i n the results section. CBC WITHOUT Routine 04/02/2013 6:08 AM Results f or this DIFFERENTIAL, B CDT procedure ar e in the results section. ELECTROLYTE (CHEM 4) Routine 04/01/2013 4:03 AM R esults for this PANEL, S/P CDT procedure are i n the results section. PROTHROMBIN TIME (PT), Routine 04/01/2013 4:03 AM Results for this P CDT procedure are i n the results section. CBC WITHOUT Routine 04/01/2013 4:03 AM Results f or this DIFFERENTIAL, B CDT procedure ar e in the results section. MAGNESIUM, S Routine 04/01/2013 4:03 AM Results f or this CDT procedure are i n the results section. DX CHEST PORTABLE 1 Routine 03/31/2013 6:44 AM Re sults for this VIEW CDT procedure are i n the results section. ELPN WITH CREATININE Routine 03/31/2013 6:11 AM R esults for this DIANNE, P CDT procedure are i n the results section. PROTHROMBIN TIME (PT), Routine 03/31/2013 6:11 AM Results for this P CDT procedure are i n the results section. CBC WITHOUT Routine 03/31/2013 6:11 AM Results f or this DIFFERENTIAL, B CDT procedure ar e in the results section. MAGNESIUM, S Routine 03/31/2013 6:11 AM Results f or this CDT procedure are i n the results section. GLUCOSE POCT, B Routine 03/30/2013 6:07 AM Result s for this CDT procedure are i n the results section. DX CHEST PORTABLE 1 Routine 03/30/2013 4:58 AM Re sults for this VIEW CDT procedure are i n the results section. ABG W/COOX Routine 03/30/2013 3:35 AM Results f or this CDT procedure are i n the results section. ELPN WITH CREATININE Routine 03/30/2013 3:35 AM R esults for this DIANNE, P CDT procedure are i n the results section. ACTIVATED PARTIAL Routine 03/30/2013 3:35 AM Resu lts for this THROMBOPLASTIN TIME CDT procedur e are in (APTT), P the results section. PROTHROMBIN TIME (PT), Routine 03/30/2013 3:35 AM Results for this P CDT procedure are i n the results section. CBC WITHOUT Routine 03/30/2013 3:35 AM Results f or this DIFFERENTIAL, B CDT procedure ar e in the results section. GLUCOSE POCT, B Routine 03/30/2013 12:14 Results for this AM CDT procedure are i n the results section. ABG W/COOX Routine 03/29/2013 10:20 Results for this PM CDT procedure are i n the results section. POTASSIUM, B Routine 03/29/2013 10:20 Results for this PM CDT procedure are i n the results section. ABG W/COOX Routine 03/29/2013 7:33 PM Results f or this CDT procedure are i n the results section. POTASSIUM, B Routine 03/29/2013 7:33 PM Results f or this CDT procedure are i n the results section. PH BLOOD GAS Routine 03/29/2013 4:13 PM Results f or this CDT procedure are i n the results section. CALCIUM, IONIZED, S/B Routine 03/29/2013 4:13 PM Results for this CDT procedure are i n the results section. ABG W/COOX Routine 03/29/2013 3:03 PM Results f or this CDT procedure are i n the results section. POTASSIUM, B Routine 03/29/2013 3:03 PM Results f or this CDT procedure are i n the results section. ABG W/COOX Routine 03/29/2013 1:37 PM Results f or this CDT procedure are i n the results section. ELPN WITH CREATININE Routine 03/29/2013 12:02 Res ults for this DIANNE, P PM CDT procedure are i n the results section. THROMBOELASTOGRAPH, Routine 03/29/2013 12:02 Resu lts for this KAOLIN, B PM CDT procedure are i n the results section. CBC WITHOUT Routine 03/29/2013 12:02 Results for this DIFFERENTIAL, B PM CDT procedure ar e in the results section. ABG W/COOX Routine 03/29/2013 12:01 Results for this PM CDT procedure are i n the results section. ACTIVATED PARTIAL Routine 03/29/2013 12:01 Result s for this THROMBOPLASTIN TIME PM CDT procedur e are in (APTT), P the results section. PROTHROMBIN TIME (PT), Routine 03/29/2013 12:01 R esults for this P PM CDT procedure are i n the results section. FIBRINOGEN, P Routine 03/29/2013 12:01 Results fo r this PM CDT procedure are i n the results section. MAGNESIUM, S Routine 03/29/2013 12:01 Results for this PM CDT procedure are i n the results section. GLUCOSE POCT, B Routine 03/29/2013 11:59 Results for this AM CDT procedure are i n the results section. ACT, POCT, B Routine 03/29/2013 11:58 Results for this AM CDT procedure are i n the results section. DX CHEST PORTABLE 1 Routine 03/29/2013 11:14 Resu lts for this VIEW AM CDT procedure are i n the results section. ACTIVATED PARTIAL Routine 03/29/2013 10:27 Result s for this THROMBOPLASTIN TIME AM CDT procedur e are in (APTT), P the results section. PROTHROMBIN TIME (PT), Routine 03/29/2013 10:27 R esults for this P AM CDT procedure are i n the results section. FIBRINOGEN, P Routine 03/29/2013 10:27 Results fo r this AM CDT procedure are i n the results section. PLATELETS, B Routine 03/29/2013 10:27 Results for this AM CDT procedure are i n the results section. ABG W/COOX Routine 03/29/2013 10:15 Results for this AM CDT procedure are i n the results section. POTASSIUM, B Routine 03/29/2013 10:15 Results for this AM CDT procedure are i n the results section. GLUCOSE, WHOLE BLOOD Routine 03/29/2013 10:15 Res ults for this AM CDT procedure are i n the results section. SODIUM, S/P Routine 03/29/2013 10:15 Results for this AM CDT procedure are i n the results section. CALCIUM, IONIZED, S/B Routine 03/29/2013 10:15 Re sults for this AM CDT procedure are i n the results section. ACT, POCT, B Routine 03/29/2013 10:13 Results for this AM CDT procedure are i n the results section. ACT, POCT, B Routine 03/29/2013 9:41 AM Results f or this CDT procedure are i n the results section. ABG W/COOX Routine 03/29/2013 9:29 AM Results f or this CDT procedure are i n the results section. POTASSIUM, B Routine 03/29/2013 9:29 AM Results f or this CDT procedure are i n the results section. GLUCOSE, WHOLE BLOOD Routine 03/29/2013 9:29 AM R esults for this CDT procedure are i n the results section. SODIUM, S/P Routine 03/29/2013 9:29 AM Results f or this CDT procedure are i n the results section. CALCIUM, IONIZED, S/B Routine 03/29/2013 9:29 AM Results for this CDT procedure are i n the results section. ACT, POCT, B Routine 03/29/2013 9:14 AM Results f or this CDT procedure are i n the results section. ACT, POCT, B Routine 03/29/2013 8:52 AM Results f or this CDT procedure are i n the results section. HXINTRA-OP AUTO TX Routine 03/29/2013 8:40 AM Res ults for this CDT procedure are i n the results section. ECHOCARDIOGRAM Routine 03/29/2013 8:00 AM CDT ABG W/COOX Routine 03/29/2013 7:57 AM Results f or this CDT procedure are i n the results section. POTASSIUM, B Routine 03/29/2013 7:57 AM Results f or this CDT procedure are i n the results section. GLUCOSE, WHOLE BLOOD Routine 03/29/2013 7:57 AM R esults for this CDT procedure are i n the results section. SODIUM, S/P Routine 03/29/2013 7:57 AM Results f or this CDT procedure are i n the results section. CALCIUM, IONIZED, S/B Routine 03/29/2013 7:57 AM Results for this CDT procedure are i n the results section. ACT, POCT, B Routine 03/29/2013 7:55 AM Results f or this CDT procedure are i n the results section. documented in this encounter Results DX Chest AP or PA and Lateral 2 Views (04/04/2013 8:09 AM CDT) Anatomical Region Laterality Modality Chest N/A Radiographic Imaging Specimen (Source) Anatomical Collection Method Collection Time Re ceived Time Location / / Volume Laterality 04/04/2013 8:09 AM CDT Narrative 04/04/2013 8:16 AM CDT 04-Apr-2013 08:09:00 ??Exam: Chest-- 2 Views Indications: dismisal ORIGINAL REPORT - 04-Apr-2013 08:16:00 Chest; 2 views: Comparison April 02, 2013 and March. The diffuse alveolar infiltrate demonstr ates continued slow improvement since March 31. Minimal right basilar pleural effusion. No pneumothorax. Cardiomegaly. Sternotomy. Electronically signed by: ?? Roderick Morales M.D. 04-Apr-2013 08:16 Procedure Note Roderick Morales M.D. - 09/22/2017Form atting of this note might be different from the original. 04-Apr-2013 08:09:00 Exam: Chest-- 2 Vie ws Indications: dismisal ORIGINAL REPORT - 04-Apr-2013 08:16:00 Chest; 2 views: Comparison April 02, 2013 and March. The diffuse alveolar infiltrate demonstr ates continued slow improvement since March 31. Minimal right basilar pleural effusion. No pneumothorax. Cardiomegaly. Sternotomy. Electronically signed by: Roderick Morales M.D. 04-Apr-2013 08:16 Cha Mallory P.A.-C., M.S. IMG DIAGNOSTIC IMAGING CT OCEDURES (ABNORMAL) Electrolyte Panel with Creatinine Dianne (04/04/2013 6:12 AM CDT) Analysis Performed At Path logist Time Signature BUN (Blood 17 6 - 21 [facility] Urea MG/DL LABORATORIES - Nitrogen), S [facility] Creatinine, 1.1 0.7 - 1.2 [facility] Dianne MG/DL LABORATORIES - [facility] HX 33 (H) 22 - 29 [facility] Bicarbonate, MMOL/L LABORATORIES - P/S [facility] Sodium, P 135 135 - 145 [facility] MMOL/L LABORATORIES - [facility] Potassium, P 4.4 3.6 - 5.2 [facility] MMOL/L LABORATORIES - [facility] Glucose, S 99 70 - 140 [facility] MG/DL LABORATORIES - [facility] Chloride, S 93 (L) 100 - 108 [facility] MMOL/L LABORATORIES - [facility] Specimen Anatomical Collection Method Collection Time Receive d Time (Source) Location / / Volume Laterality 04/04/2013 6:12 AM 3 6:12 CDT AM CDT Cha Mallory P.A.-C., M.S. LAB BLOOD ADD-ON Performing Organization Address City/State/[facility] Code Phon e Number [facility] LABORATORIES - [address] [place], [place] [address] [facility] (ABNORMAL) CBC with Differential (04/04/2013 6:12 AM CDT) [facility] gist Method Time Signature Hemoglobin 8.9 (L) 12.0 - [facility] 15.5 G/DL LABORATORIES - [facility] Hematocrit 27.8 (L) 34.9 - [facility] 44.5 % LABORATORIES [facility] RBC Distrib 14.1 11.9 - [facility] Width 15.5 % LABORATORIES - [facility] Platelet Count 179 150 - 450 [facility] X10(9)/L LABORATORIES [facility] Leukocytes 3.2 (L) 3.5 - [facility] 10.5 LABORATORIES - X10(9)/L [facility] Neutrophils 2.17 1.70 - [facility] 7.00 LABORATORIES - X10(9)/L [facility] Lymphocytes 0.68 (L) 0.90 - [facility] 2.90 LABORATORIES - X10(9)/L [facility] Monocytes 0.31 0.30 - [facility] 0.90 LABORATORIES - X10(9)/L [facility] Eosinophils 0.03 (L) 0.05 - [facility] 0.50 LABORATORIES - X10(9)/L [facility] Basophils 0.02 0.00 - [facility] 0.30 LABORATORIES - X10(9)/L [facility] Erythrocytes 2.81 (L) 3.90 - [facility] 5.03 LABORATORIES - X10(12)/L [facility] MCV 98.9 (H) 81.6 - [facility] 98.3 [place] LABORATORIES - [facility] Specimen Anatomical Collection Method Collection Time Receive d Time (Source) Location / / Volume Laterality 04/04/2013 6:12 AM 3 6:12 CDT AM CDT Cha Mallory P.A.-C., M.S. LAB BLOOD ADD-ON Performing Organization Address City/[facility] Code Phon e Number [facility] LABORATORIES - [address] [place] [phone] [facility] (ABNORMAL) PT (Prothrombin Time) with INR (04/04/2013 6:12 AM CDT) [facility] [employer] Method Time Signature Prothrombin 29.7 (H) 9.5 - [facility] Time, P 13.8 [facility] INR 2.7 0.8 - 1.2 [facility] LABORATORIES - [facility] Specimen Anatomical Collection Method Collection Time Receive d Time (Source) Location / / Volume Laterality 04/04/2013 6:12 AM 3 6:12 CDT AM CDT Cha Mallory P.A.-C., M.S. LAB BLOOD ADD-ON Performing Organization Address City/[facility] Code Phon e Number [facility] LABORATORIES - [address] [place] [phone] [facility] (ABNORMAL) CBC without Differential (04/03/2013 4:37 AM CDT) [facility] [employer] ([employer] Method Time Signature Hemoglobin 8.8 (L) 12.0 - [facility] 15.5 G/DL [facility] Hematocrit 27.8 (L) 34.9 - [facility] 44.5 % [facility] RBC Distrib 14.0 11.9 - [facility] Width 15.5 % [facility] Platelet Count 169 150 - 450 [facility] X10(9)/L [facility] Erythrocytes 2.74 (L) 3.90 - [facility] 5.03 LABORATORIES - X10(12)/L [facility] MCV 101.5 (H) 81.6 - [facility] 98.3 [place] LABORATORIES - [facility] Leukocytes 3.6 3.5 - [facility] 10.5 LABORATORIES - X10(9)/L [facility] Specimen Anatomical Collection Method Collection Time Receive d Time (Source) Location / / Volume Laterality 04/03/2013 4:37 AM 3 4:37 CDT AM CDT Mai Lares APRN, Danie.N.P., D.N.P. LAB BLOOD ADD-ON Performing Organization Address City/[facility]/ZIP Code Phon e Number [facility] LABORATORIES - [address] [place] [phone] [facility] (ABNORMAL) PT (Prothrombin Time) with INR (04/03/2013 4:37 AM CDT) [facility] Method Time Signature Prothrombin 37.1 (H) 9.5 - [facility] Time, P 13.8 SEC LABORATORIES - [facility] INR 3.4 0.8 - 1.2 [facility] LABORATORIES - [facility] Specimen Anatomical Collection Method Collection Time Receive d Time (Source) Location / / Volume Laterality 04/03/2013 4:37 AM 3 4:37 CDT AM CDT Mai Lares APRN, C.N.P., D.N.P. LAB BLOOD ADD-ON Performing Organization Address City/[facility] Code Phon e Number [facility] LABORATORIES - [address] [phone] [facility] (ABNORMAL) Electrolyte Panel with Creatinine Dianne (04/03/2013 4:37 AM CDT) [facility] Method Time Signature BUN (Blood 14 6 - 21 [facility] Urea MG/DL LABORATORIES - Nitrogen), S [facility] Creatinine, 1.1 0.7 - 1.2 [facility] Dianne MG/DL LABORATORIES - [facility] HX 35 (H) 22 - 29 [facility] Bicarbonate, MMOL/L LABORATORIES - P/S [facility] Sodium, P 134 (L) 135 - 145 [facility] MMOL/L LABORATORIES - [facility] Potassium, P 4.0 3.6 - 5.2 [facility] MMOL/L LABORATORIES - [facility] Glucose, S 101 70 - 140 [facility] MG/DL LABORATORIES [facility] Chloride, S 94 (L) 100 - 108 [facility] MMOL/L LABORATORIES - [facility] Specimen Anatomical Collection Method Collection Time Receive d Time (Source) Location / / Volume Laterality 04/03/2013 4:37 AM 3 4:37 CDT AM CDT Mai Lares APRN, C.N.P., D.N.P. LAB BLOOD ADD-ON Performing Organization Address City/[facility]/ZIP Code Phon e Number [facility] LABORATORIES - [address] (ABNORMAL) PT (Prothrombin Time) with INR (04/02/2013 2:26 PM CDT) [facility] Method Time Signature Prothrombin 39.5 (H) 9.5 - [facility] Time, P 13.8 [facility] INR 3.6 0.8 - 1.2 [facility] Specimen Anatomical Collection Method Collection Time Receive d Time (Source) Location / / Volume Laterality 04/02/2013 2:26 PM 3 2:26 CDT PM CDT Usman Wynne M.D. LAB BLOOD ADD-ON Performing Organization Address City/[facility]/ZIP Code Phon e Number [facility] LABORATORIES - [address] DX Chest AP or PA and Lateral 2 Views (04/02/2013 10:51 AM CDT) Anatomical Region Laterality Modality Chest N/A Radiographic Imaging Specimen (Source) Anatomical Collection Method Collection Time Re ceived Time Location / / Volume Laterality 04/02/2013 10:51 AM CDT Narrative 04/02/2013 11:00 AM CDT 02-Apr-2013 10:51:00 ??Exam: Chest-- 2 Views Indications: dismissal ORIGINAL REPORT - 02-Apr-2013 11:00:00 Chest; 2 views: Sternotomy. Mild cardiac enlargement. Mi ld perihilar edema and lower lobe infiltrates. Lower lobe infiltrates have improved slightly since 03/31/2013. Tiny right pleural effusion. Electronically signed by: ?? Ming Santos MD. ??[id number] 02-Apr-2013 11: 00 Procedure Note Osiel Santos M.D. - 09/22/2017Formatti ng of this note might be different from the original. 02-Apr-2013 10:51:00 Exam: Chest-- 2 Vie ws Indications: dismissal ORIGINAL REPORT - 02-Apr-2013 11:00:00 Chest; 2 views: Sternotomy. Mild cardiac enlargement. Mi ld perihilar edema and lower lobe infiltrates. Lower lobe infiltrates have improved slightly since 03/31/2013. Tiny right pleural effusion. Electronically signed by: Ming Santos MD. [phone] 02-Apr-2013 11:00 Micah Baez P.A.-C. IMG DIAGNOSTIC IMAGING PROCE DURES Echocardiogram (04/02/2013 8:07 AM CDT) Anatomical Region Laterality Modality Echocardiography Specimen (Source) Anatomical Collection Method Collection Time Re ceived Time Location / / Volume Laterality 04/02/2013 8:07 AM CDT Historical Provider CV ECHO PROCEDURES (ABNORMAL) Electrolyte Panel with Creatinine Dianne (04/02/2013 6:08 AM CDT) Analysis Performed At Patho logist Time Signature Sodium, P 135 135 - 145 [facility] MMOL/L LABORATORIES - [facility] Potassium, P 4.1 3.6 - 5.2 [facility] MMOL/L LABORATORIES - [facility] Glucose, S 109 70 - 140 [facility] MG/DL LABORATORIES - [facility] Chloride, S 96 (L) 100 - 108 [facility] MMOL/L LABORATORIES - [facility] HX 34 (H) 22 - 29 [facility] Bicarbonate, MMOL/L LABORATORIES - P/S [facility] BUN (Blood 11 6 - 21 [facility] Urea MG/DL LABORATORIES - Nitrogen), S [facility] Creatinine, 1.0 0.7 - 1.2 [facility] Dianne MG/DL LABORATORIES - [facility] Specimen Anatomical Collection Method Collection Time Receive d Time (Source) Location / / Volume Laterality 04/02/2013 6:08 AM 3 6:08 CDT AM CDT Tom Gonzales APRN, C.N.P., M.S.N., R.N. LAB BLOOD ADD -ON Performing Organization Address City/State/ZIP Code Phon e Number [facility] LABORATORIES - [address] [place], [place] [address] [facility] (ABNORMAL) CBC without Differential (04/02/2013 6:08 AM CDT) [facility] Method Time Signature Hemoglobin 8.8 (L) 12.0 - [facility] 15.5 G/DL [facility] Hematocrit 27.7 (L) 34.9 - [facility] 44.5 % [facility] RBC Distrib 14.2 11.9 - [facility] Width 15.5 % LABORATORIES - [facility] Platelet Count 123 (L) 150 - 450 [facility] X10(9)/L LABORATORIES - [facility] Leukocytes 4.0 3.5 - [facility] 10.5 LABORATORIES - X10(9)/L [facility] Erythrocytes 2.75 (L) 3.90 - [facility] 5.03 LABORATORIES - X10(12)/L [facility] MCV 100.7 (H) 81.6 - [facility] 98.3 [place] LABORATORIES [facility] Specimen Anatomical Collection Method Collection Time Receive d Time (Source) Location / / Volume Laterality 04/02/2013 6:08 AM 3 6:08 CDT AM CDT Lance Zuñiga APRNN.Frankie., M.S.N., R.N. LAB BLOOD ADD -ON Performing Organization Address City/[facility]/ZIP Code Phon e Number [facility] LABORATORIES - [address] [place] [phone] [facility] (ABNORMAL) PT (Prothrombin Time) with INR (04/02/2013 6:08 AM CDT) [facility] Method Time Signature Prothrombin 36.1 (H) 9.5 - [facility] Time, P 13.8 SEC LABORATORIES - [facility] INR 3.3 0.8 - 1.2 [facility] LABORATORIES - [facility] Specimen Anatomical Collection Method Collection Time Receive d Time (Source) Location / / Volume Laterality 04/02/2013 6:08 AM 3 6:08 CDT AM CDT Danie Zuñiga APRN.N.P., M.S.N., R.N. LAB BLOOD ADD -ON Performing Organization Address City/[facility]/ZIP Code Phon e Number [facility] LABORATORIES - [address] [place] [phone] [facility] (ABNORMAL) Magnesium (04/01/2013 4:03 AM CDT) [facility] Time Signature Magnesium, S 1.5 (L) 1.7 - 2.3 [facility] MG/DL LABORATORIES - [facility] Specimen Anatomical Collection Method Collection Time Receive d Time (Source) Location / / Volume Laterality 04/01/2013 4:03 AM 3 4:03 CDT AM CDT Usman Wynne M.D. LAB BLOOD ADD-ON Performing Organization Address City/[facility]/ZIP Code Phon e Number [facility] LABORATORIES - [address] [id number] [facility] (ABNORMAL) PT (Prothrombin Time) with INR (04/01/2013 4:03 AM CDT) [facility] Method Time Signature Prothrombin 20.0 (H) 9.5 - [facility] Time, P 13.8 SEC LABORATORIES - [facility] INR 1.8 0.8 - 1.2 [facility] LABORATORIES - [facility] Specimen Anatomical Collection Method Collection Time Receive d Time (Source) Location / / Volume Laterality 04/01/2013 4:03 AM 3 4:03 CDT AM CDT Usman Wynne M.D. LAB BLOOD ADD-ON Performing Organization Address City/[facility]/ZIP Code Phon e Number [facility] LABORATORIES - [address] [phone] [facility] (ABNORMAL) Electrolyte (Chem 4) Panel (04/01/2013 4:03 AM CDT) [facility] Method Time Signature Sodium, S 136 135 - 145 [facility] MMOL/L LABORATORIES - [facility] Potassium, S 4.5 3.6 - 5.2 [facility] MMOL/L LABORATORIES - [facility] Creatinine 1.1 0.6 - 1.1 [facility] MG/DL LABORATORIES - [facility] eGFR 55 (L) >60 [facility] Non-Black/Afric ML/MIN/BSA LABORATORIES - an [place] [facility] eGFR-Black/Afri >60 >60 [facility] can [place] ML/MIN/BSA LABORATORIES - [facility] BUN (Blood Urea 14 6 - 21 [facility] Nitrogen), S MG/DL LABORATORIES [facility] Anion Gap 9 7 - 15 [facility] LABORATORIES - [facility] Glucose, S 133 70 - 140 [facility] MG/DL LABORATORIES - [facility] Chloride, S 96 (L) 100 - 108 [facility] MMOL/L LABORATORIES - [facility] HX Bicarbonate, 31 (H) 22 - 29 [facility] P/S MMOL/L LABORATORIES - [facility] Specimen Anatomical Collection Method Collection Time Receive d Time (Source) Location / / Volume Laterality 04/01/2013 4:03 AM 3 4:03 CDT AM CDT Usman Wynne M.D. LAB BLOOD ADD-ON Performing Organization Address City/[facility]/ZIP Code Phon e Number [facility] LABORATORIES - [address] [phone] [facility] (ABNORMAL) CBC without Differential (04/01/2013 4:03 AM CDT) [facility] gist Method Time Signature Erythrocytes 2.74 (L) 3.90 - [facility] 5.03 LABORATORIES - X10(12)/L [facility] MCV 100.7 (H) 81.6 - [facility] 98.3 FL [facility] Leukocytes 6.0 3.5 - [facility] 10.5 LABORATORIES - X10(9)/L [facility] Hemoglobin 8.8 (L) 12.0 - [facility] 15.5 G/DL [facility] Hematocrit 27.6 (L) 34.9 - [facility] 44.5 % [facility] - [facility] RBC Distrib 14.2 11.9 - [facility] Width 15.5 % [facility] Platelet Count 96 (L) 150 - 450 [facility] X10(9)/L [facility] Specimen Anatomical Collection Method Collection Time Receive d Time (Source) Location / / Volume Laterality 04/01/2013 4:03 AM 3 4:03 CDT AM CDT Usman Wynne M.D. LAB BLOOD ADD-ON Performing Organization Address City/[facility]/ZIP Code Phon e Number [facility] LABORATORIES - [address] [phone] 05 [facility] DX Chest Portable 1 View (03/31/2013 6:44 AM CDT) Anatomical Region Laterality Modality Chest N/A Radiographic Imaging Specimen (Source) Anatomical Collection Method Collection Time Re ceived Time Location / / Volume Laterality 03/31/2013 6:44 AM CDT Narrative 03/31/2013 7:35 AM CDT 31-Mar-2013 06:44:00 ??Exam: Portable-Chest Indications: coarse lung sounds ORIGINAL REPORT - 31-Mar-2013 07:35:00 Chest; 1 view: Sternotomy. Cardiomegaly. INfiltrates an d atelectasis in the lower lungs have progressed since yesterday. Tiny pleural effusions. Right IJ central line tip in the SVC. Electronically signed by: ?? Doc Bond MD. ??[id number] 31-Mar-2013 07: 35 Procedure Note Dave Bond M.D. - 09/22/2017Format ting of this note might be different from the original. 31-Mar-2013 06:44:00 Exam: Portable-Ches t Indications: coarse lung sounds ORIGINAL REPORT - 31-Mar-2013 07:35:00 Chest; 1 view: Sternotomy. Cardiomegaly. INfiltrates an d atelectasis in the lower lungs have progressed since yesterday. Tiny pleural effusions. Right IJ central line tip in the SVC. Electronically signed by: Doc Bond MD. [id number] 31-Mar-2013 07:35 Nicolasa Barbosa APRN, C.N.P., D.N.P. IMG DIAGNOSTIC IM AGING PROCEDURES (ABNORMAL) Electrolyte Panel with Creatinine Dianne (03/31/2013 6:11 AM CDT) athologist Signature Sodium, P 133 (L) 135 - 145 [facility] MMOL/L [facility] Comment: ST [facility] Potassium, P 4.0 3.6 - 5.2 MMOL/L [facility] Comment: [facility] Creatinine, Dianne 1.2 0.7 - 1.2 MG/DL [facility] Comment: [facility] Glucose, S 144 (H) 70 - 140 MG/DL [facility] [place] BORATORIES [facility] Comment: ST [facility] BUN (Blood Urea Nitrogen), S 15 6 - 21 MG/DL [facility] Comment: [facility] HX Bicarbonate, P/S 28 22 - 29 MMOL/L [facility] Comment: ST [facility] Chloride, S 99 (L) 100 - 108 MMOL/L [facility] Comment: [facility] Specimen Anatomical Collection Method Collection Time Receive d Time (Source) Location / / Volume Laterality 03/31/2013 6:11 AM 3 6:11 CDT AM CDT Narrative [facility] - 03/31/2013 6:[address] [facility] Jacki Figueroa P.A.-C. LAB BLOOD ADD-ON Performing Organization Address City/[facility]/ZIP Code Phon e Number [facility] - [address] [place], [place] [address] [facility] (ABNORMAL) PT (Prothrombin Time) with INR (03/31/2013 6:11 AM CDT) Patholo gist Method Time Signature Prothrombin 15.0 (H) 9.5 - [facility] Time, P 13.8 SEC [facility] Comment: ST [facility] INR 1.3 0.8 - 1.2 [facility] LABORATO URIEL - [facility] Comment: ST [facility] Specimen Anatomical Collection Method Collection Time Receive d Time (Source) Location / / Volume Laterality 03/31/2013 6:11 AM 3 6:11 CDT AM CDT Narrative [facility] - 03/31/2013 6:[address] [facility] Jacki Figueroa P.A.-C. LAB BLOOD ADD-ON Performing Organization Address City/[facility]/ZIP Code Phon e Number [facility] - [address] [phone] [facility] (ABNORMAL) Magnesium (03/31/2013 6:11 AM CDT) Analysis Performed At Patho logist Time Signature Magnesium, S 1.5 (L) 1.7 - 2.3 [facility] MG/DL [facility] Comment: ST [facility] Specimen Anatomical Collection Method Collection Time Receive d Time (Source) Location / / Volume Laterality 03/31/2013 6:11 AM 3 6:11 CDT AM CDT Narrative [facility] - 03/31/2013 7:[address] [facility] Jacki Figueroa P.A.-C. LAB BLOOD ADD-ON Performing Organization Address City/State/ZIP Code Phon e Number [facility] - [address] [place], [place] [address] [facility] (ABNORMAL) CBC without Differential (03/31/2013 6:11 AM CDT) [facility] Method Time Signature Erythrocytes 2.82 (L) 3.90 - [facility] 5.03 LABORATORIES - X10(12)/L [facility] Comment: CVC MCV 102.1 (H) 81.6 - 98.3 FL [facility] Comment: CVC Leukocytes 8.5 3.5 - 10.5 X10(9)/L [facility] IC [facility] Comment: ST [facility] Hemoglobin 9.2 (L) 12.0 - 15.5 G/DL [facility] Comment: ST [facility] Hematocrit 28.8 (L) 34.9 - 44.5 % [facility] Comment: ST [facility] RBC Distrib Width 14.3 11.9 - 15.5 % [facility] Comment: ST [facility] Platelet Count 97 (L) 150 - 450 X10(9)/L [facility] Comment: ST [facility] Specimen Anatomical Collection Method Collection Time Receive d Time (Source) Location / / Volume Laterality 03/31/2013 6:11 AM 3 6:11 CDT AM CDT Narrative [facility] - 03/31/2013 6:[address] [facility] Jacki Figueroa P.A.-C. LAB BLOOD ADD-ON Performing Organization Address City/[facility]/ZIP Code Phon e Number [facility] LABORATORIES - [address] [phone] [facility] Glucose, POCT (03/30/2013 6:07 AM CDT) [facility] Method Time Signature Glucose, POCT, 126 70 - 140 [facility] B MG/DL LABORATORIES - [facility] Sample Site, ARTLINE [facility] Blood Gas, LABORATORIES - POCT [facility] Specimen Anatomical Collection Method Collection Time Receive d Time (Source) Location / / Volume Laterality 03/30/2013 6:07 AM 3 6:07 CDT AM CDT Historical Provider LAB POCT ORDERABLES-MANUAL Performing Organization Address City/[facility] Phon e Number [facility] LABORATORIES - [address] [phone] 05 [facility] DX Chest Portable 1 View (03/30/2013 4:58 AM CDT) Anatomical Region Laterality Modality Chest N/A Radiographic Imaging Specimen (Source) Anatomical Collection Method Collection Time Re ceived Time Location / / Volume Laterality 03/30/2013 4:58 AM CDT Narrative 03/30/2013 6:04 AM CDT 30-Mar-2013 04:58:00 ??Exam: Portable-Chest Indications: s/p cvs ORIGINAL REPORT - 30-Mar-2013 06:04:00 Chest; 1 view: Sternotomy with PO changes in the medias tinum. Cardiomegaly. Patchy infiltrates or atelectasis in the bases. Right IJ central line tip in the SVC. Since yesterday, the ETT has been removed and the perihilar edema has improved. Electronically signed by: ?? Doc Bond MD. ??[id number] 30-Mar-2013 06: 04 Procedure Note Dave Bond M.D. - 09/22/2017Format ting of this note might be different from the original. 30-Mar-2013 04:58:00 Exam: Portable-Ches t Indications: s/p cvs ORIGINAL REPORT - 30-Mar-2013 06:04:00 Chest; 1 view: Sternotomy with PO changes in the medias tinum. Cardiomegaly. Patchy infiltrates or atelectasis in the bases. Right IJ central line tip in the SVC. Since yesterday, the ETT has been removed and the perihilar edema has improved. Electronically signed by: Doc Bond MD. [id number] 30-Mar-2013 06:04 Jacki Figueroa P.A.-C. [employer] DIAGNOSTIC IMAGING PROCE JOHN (ABNORMAL) CBC without Differential (03/30/2013 3:35 AM CDT) [facility] Method Time Signature Hemoglobin 10.3 (L) 12.0 - [facility] 15.5 G/DL [facility] Hematocrit 31.6 (L) 34.9 - [facility] 44.5 % [facility] RBC Distrib 14.0 11.9 - [facility] Width 15.5 % [facility] Platelet Count 105 (L) 150 - 450 [facility] X10(9)/L [facility] Leukocytes 6.4 3.5 - [facility] 10.5 LABORATORIES - X10(9)/L [facility] Erythrocytes 3.20 (L) 3.90 - [facility] 5.03 LABORATORIES - X10(12)/L [facility] MCV 98.8 (H) 81.6 - [facility] 98.3 FL [facility] Specimen Anatomical Collection Method Collection Time Receive d Time (Source) Location / / Volume Laterality 03/30/2013 3:35 AM 3 3:35 CDT AM CDT Usman Wynne M.D. LAB BLOOD ADD-ON Performing Organization Address City/[facility]/ZIP Code Phon e Number [facility] LABORATORIES - [address] [address] [facility] (ABNORMAL) APTT (Activated Partial Thromboplastin Time) (03/30/2013 3:35 AM CDT) P athologist Signature APTT, P 26 (L) 28 - 38 SEC [facility] Specimen Anatomical Collection Method Collection Time Receive d Time (Source) Location / / Volume Laterality 03/30/2013 3:35 AM 3 3:35 CDT AM CDT Usman Wynne M.D. LAB BLOOD ADD-ON Performing Organization Address City/[facility]/ZIP Code Phon e Number [facility] LABORATORIES - [address] [phone] [facility] (ABNORMAL) Blood Gas with Coox, Arterial (03/30/2013 3:35 AM CDT) Patholo gist Method Time Signature Arterial Art Line [facility] Sample Site [facility] FIO2 0.45 .21=AIR [facility] pO2 119 (H) 80 - 100 [facility] MM HG [facility] pCO2 50 (H) 35 - 45 [facility] MM HG [facility] O2Hb 96.9 94.0 - [facility] 98.0 % [facility] COHb 1.4 <3.0 % [facility] Device CFM [facility] Spont. 15 [facility] breaths/min [facility] pH 7.36 7.35 - [facility] 7.45 PH [facility] Base Excess 3 (H) -2 - 2 [facility] MMOL/L [facility] HCO3 28 (H) 22 - 26 [facility] MMOL/L LABORATORIES - [facility] Hb 10.7 (L) 12.0 - [facility] 15.5 G/DL LABORATORIES - [facility] MetHb <1.0 <1.6 % [facility] LABORATORIES - [facility] CtO2 14.7 (L) 21.0 - [facility] 23.0 VOL LABORATORIES - % [facility] Specimen Anatomical Collection Method Collection Time Receive d Time (Source) Location / / Volume Laterality 03/30/2013 3:35 AM 3 3:35 CDT AM CDT Usman Wynne M.D. LAB BLOOD NON ADD-ON Performing Organization Address City/[facility]/ZIP Code Phon e Number [facility] LABORATORIES - [address] [phone] [facility] PT (Prothrombin Time) with INR (03/30/2013 3:35 AM CDT) Patholo gist Method Time Signature Prothrombin 12.8 9.5 - 13.8 [facility] Time, P SEC LABORATORIES - [facility] INR 1.1 0.8 - 1.2 [facility] LABORATORIES - [facility] Specimen Anatomical Collection Method Collection Time Receive d Time (Source) Location / / Volume Laterality 03/30/2013 3:35 AM 3 3:35 CDT AM CDT Usman Wynne M.D. LAB BLOOD ADD-ON Performing Organization Address City/State/ZIP Code Phon e Number [facility] LABORATORIES - [address] [phone] 05 [facility] Electrolyte Panel with Creatinine Dianne (03/30/2013 3:35 AM CDT) P athologist Signature BUN (Blood 13 6 - 21 [facility] Urea MG/DL LABORATORIES - Nitrogen), S [facility] Sodium, P 137 135 - 145 [facility] MMOL/L LABORATORIES - [facility] Creatinine, 1.1 0.7 - 1.2 [facility] Dianne MG/DL LABORATORIES - [facility] Glucose, S 137 70 - 140 [facility] MG/DL LABORATORIES - [facility] Potassium, P 4.2 3.6 - 5.2 [facility] MMOL/L LABORATORIES - [facility] HX 27 22 - 29 [facility] Bicarbonate, MMOL/L LABORATORIES - P/S [facility] Chloride, S 106 100 - 108 [facility] MMOL/L LABORATORIES - [facility] Specimen Anatomical Collection Method Collection Time Receive d Time (Source) Location / / Volume Laterality 03/30/2013 3:35 AM 3 3:35 CDT AM CDT Usman Wynne M.D. LAB BLOOD ADD-ON Performing Organization Address City/[facility]/ZIP Code Phon e Number [facility] LABORATORIES - [address] [phone] [facility] Glucose, POCT (03/30/2013 12:14 AM CDT) [facility] [employer] Method Time Signature Glucose, POCT, 136 70 - 140 [facility] B MG/DL LABORATORIES - [facility] Sample Site, ARTLINE [facility] Blood Gas, LABORATORIES - POCT [facility] Specimen Anatomical Collection Method Collection Time Receive d Time (Source) Location / / Volume Laterality 03/30/2013 12:14 03/30/2013 AM CDT 12:14 AM CDT Historical Provider LAB POCT ORDERABLES-MANUAL Performing Organization Address City/[facility] Code Phon e Number [facility] LABORATORIES - [address] [address] [facility] (ABNORMAL) Blood Gas with Coox, Arterial (03/29/2013 10:20 PM CDT) [facility] [employer] Method Time Signature O2 Flow 3.0 L/MIN [facility] Device NC [facility] pCO2 47 (H) 35 - 45 [facility] MM HG [facility] pH 7.36 7.35 - [facility] 7.45 PH [facility] Base Excess 1 -2 - 2 [facility] MMOL/L LABORATORIES [facility] HCO3 26 22 - 26 [facility] MMOL/L [facility] COHb 1.6 <3.0 % [facility] MetHb <1.0 <1.6 % [facility] CtO2 15.0 (L) 21.0 - [facility] 23.0 VOL LABORATORIES - % [facility] Spont. 16 [facility] breaths/min [facility] pO2 80 80 - 100 [facility] MM HG [facility] Hb 11.3 (L) 12.0 - [facility] 15.5 G/DL [facility] O2Hb 94.0 94.0 - [facility] 98.0 % [facility] - [facility] Specimen Anatomical Collection Method Collection Time Receive d Time (Source) Location / / Volume Laterality 03/29/2013 10:20 03/29/2013 PM CDT 10:20 PM CDT Nallely Oliva R.N. LAB BLOOD NON ADD-ON Performing Organization Address City/[facility]/ZIP Code Phon e Number [facility] LABORATORIES - [address] [address] [facility] Potassium, Blood (03/29/2013 10:20 PM CDT) P athologist Signature Potassium, B 4.4 3.6 - 5.2 [facility] MMOL/L [facility] Specimen Anatomical Collection Method Collection Time Receive d Time (Source) Location / / Volume Laterality 03/29/2013 10:20 03/29/2013 PM CDT 10:20 PM CDT Nallely Oliva R.N. LAB BLOOD NON ADD-ON Performing Organization Address City/[facility]/ZIP Code Phon e Number [facility] LABORATORIES - [address] [address] 05 [facility] Potassium, Blood (03/29/2013 7:33 PM CDT) P athologist Signature Potassium, B 4.0 3.6 - 5.2 [facility] MMOL/L [facility] Specimen Anatomical Collection Method Collection Time Receive d Time (Source) Location / / Volume Laterality 03/29/2013 7:33 PM 3 7:33 CDT PM CDT Usman Wynne M.D. LAB BLOOD NON ADD-ON Performing Organization Address City/[facility]/ZIP Code Phon e Number [facility] LABORATORIES - [address] [phone] 05 [facility] (ABNORMAL) Blood Gas with Coox, Arterial (03/29/2013 7:33 PM CDT) Patholo gist Method Time Signature Device [facility] Spont. 14 [facility] breaths/min [facility] pO2 81 80 - 100 [facility] MM HG [facility] pCO2 54 (H) 35 - 45 [facility] MM HG [facility] HCO3 26 22 - 26 [facility] MMOL/L [facility] Hb 11.6 (L) 12.0 - [facility] 15.5 G/DL [facility] MetHb <1.0 <1.6 % [facility] LABORATORIES - [facility] CtO2 15.3 (L) 21.0 - [facility] 23.0 VOL LABORATORIES - % [facility] Arterial Art Line [facility] Sample Site [facility] O2 Flow 3.0 L/MIN [facility] pH 7.31 (L) 7.35 - [facility] 7.45 PH [facility] Base Excess 1 -2 - 2 [facility] MMOL/L LABORATORIES [facility] O2Hb 93.1 (L) 94.0 - [facility] 98.0 % LABORATORIES - [facility] COHb 1.6 <3.0 % [facility] Specimen Anatomical Collection Method Collection Time Receive d Time (Source) Location / / Volume Laterality 03/29/2013 7:33 PM 3 7:33 CDT PM CDT Usman Wynne M.D. LAB BLOOD NON ADD-ON Performing Organization Address City/[facility]/ZIP Code Phon e Number [facility] LABORATORIES - [address] [phone] [facility] (ABNORMAL) pH (03/29/2013 4:13 PM CDT) P athologist Signature pH 7.28 (L) 7.35 - [facility] 7.45 PH [facility] Specimen Anatomical Collection Method Collection Time Receive d Time (Source) Location / / Volume Laterality 03/29/2013 4:13 PM 3 4:13 CDT PM CDT Jacki Figueroa P.A.-C. LAB HISTORICAL ORDERS Performing Organization Address City/State/ZIP Code Phon e Number [facility] LABORATORIES - [address] [place], [place] [address] [facility] Calcium, Ionized (03/29/2013 4:13 PM CDT) P athologist Signature Calcium, 4.71 4.65 - [facility] Ionized, B 5.30 MG/DL [facility] Specimen Anatomical Collection Method Collection Time Receive d Time (Source) Location / / Volume Laterality 03/29/2013 4:13 PM 3 4:13 CDT PM CDT Jacki Figueroa P.A.-C. LAB BLOOD NON ADD-ON Performing Organization Address City/[facility]/ZIP Code Phon e Number [facility] LABORATORIES - [address] [place], [place] [address] [facility] (ABNORMAL) Blood Gas with Coox, Arterial (03/29/2013 3:03 PM CDT) Patholo gist Method Time Signature pCO2 51 (H) 35 - 45 [facility] MM HG LABORATORIES [facility] pH 7.27 (L) 7.35 - [facility] 7.45 PH LABORATORIES [facility] Base Excess -3 (L) -2 - 2 [facility] MMOL/L LABORATORIES [facility] HCO3 23 22 - 26 [facility] MMOL/L LABORATORIES [facility] CtO2 13.7 (L) 21.0 - [facility] 23.0 VOL LABORATORIES - % [facility] Arterial Art Line [facility] Sample Site LABORATORIES [facility] pO2 85 80 - 100 [facility] MM HG LABORATORIES [facility] Hb 10.4 (L) 12.0 - [facility] 15.5 G/DL LABORATORIES [facility] O2Hb 93.5 (L) 94.0 - [facility] 98.0 % [facility] COHb 1.6 <3.0 % [facility] LABORATORIES [facility] MetHb <1.0 <1.6 % [facility] Specimen Anatomical Collection Method Collection Time Receive d Time (Source) Location / / Volume Laterality 03/29/2013 3:03 PM 3 3:03 CDT PM CDT Usman Wynne M.D. LAB BLOOD NON ADD-ON Performing Organization Address City/State/ZIP Code Phon e Number [facility] - [address] [place] [phone] [facility] Potassium, Blood (03/29/2013 3:03 PM CDT) P athologist Signature Potassium, B 4.5 3.6 - 5.2 [facility] MMOL/L LAB[facility]IES - [facility] Specimen Anatomical Collection Method Collection Time Receive d Time (Source) Location / / Volume Laterality 03/29/2013 3:03 PM 3 3:03 CDT PM CDT Usman Wynne M.D. LAB BLOOD NON ADD-ON Performing Organization Address City/State/ZIP Code Phon e Number [facility] - [address] [phone] [facility] (ABNORMAL) Blood Gas with Coox, Arterial (03/29/2013 1:37 PM CDT) [facility] [employer] Method Time Signature Device Vent [facility] Vent Mode IMPS [facility] End Expiratory 5.0 CM H2O [facility] Pressure [facility] Min. 5.3 [facility] Ventilation [facility] pH 7.30 (L) 7.35 - [facility] 7.45 PH [facility] Base Excess -1 -2 - 2 [facility] MMOL/L [facility] O2Hb 96.3 94.0 - [facility] 98.0 % [facility] COHb 1.3 <3.0 % [facility] Arterial Sample Art Line [facility] Site [facility] FIO2 0.40 .21=AIR [facility] Spont. 12 [facility] breaths/min [facility] Mech. 4 [facility] breaths/min [facility] pO2 115 (H) 80 - 100 [facility] MM HG [facility] pCO2 51 (H) 35 - 45 [facility] MM HG [facility] HCO3 24 22 - 26 [facility] MMOL/L [facility] Hb 10.6 (L) 12.0 - [facility] 15.5 G/DL [facility] MetHb <1.0 <1.6 % [facility] CtO2 14.5 (L) 21.0 - [facility] 23.0 VOL LABORATORIES - % [facility] Specimen Anatomical Collection Method Collection Time Receive d Time (Source) Location / / Volume Laterality 03/29/2013 1:37 PM 3 1:37 CDT PM CDT Usman Wynne M.D. LAB BLOOD NON ADD-ON Performing Organization Address City/State/ZIP Code Phon e Number [facility] - [address] [address] [facility] (ABNORMAL) Electrolyte Panel with Creatinine Dianne (03/29/2013 12:02 PM CDT) [facility] [employer] ([employer] Method Time Signature Sodium, P 137 135 - 145 [facility] MMOL/L [facility] Potassium, P 4.2 3.6 - 5.2 [facility] MMOL/L LABORATORIES [facility] Creatinine, 1.1 0.7 - 1.2 [facility] Dianne MG/DL LABORATORIES - [facility] Glucose, S 122 70 - 140 [facility] MG/DL LABORATORIES - [facility] BUN (Blood 13 6 - 21 [facility] Urea MG/DL LABORATORIES - Nitrogen), S [facility] HX 21 (L) 22 - 29 [facility] Bicarbonate, MMOL/L LABORATORIES - P/S [facility] Chloride, S 109 (H) 100 - 108 [facility] MMOL/L LABORATORIES - [facility] Specimen Anatomical Collection Method Collection Time Receive d Time (Source) Location / / Volume Laterality 03/29/2013 12:02 03/29/2013 PM CDT 12:02 PM CDT Jacki Figueroa P.A.-C. LAB BLOOD ADD-ON Performing Organization Address City/[facility] Phon e Number [facility] - [address] [address] [facility] (ABNORMAL) Thromboelastograph, Kaolin, Blood (03/29/2013 12:02 PM CDT) [facility] [employer] Method Time Signature R + K 10.0 4.9 - 10.8 [facility] MIN [facility] Angle 61.5 (L) 66.2 - 80.3 [facility] DEGREES [facility] R Time 8.0 4.0 - 9.0 [facility] MIN [facility] K Time 2.0 (H) 0.9 - 1.7 [facility] MIN [facility] Maximum 58.2 55.2 - 77.0 [facility] Amplitude MM LABORATORIES [facility] Ly30 0.4 0.0 - 4.8 % [facility] Specimen Anatomical Collection Method Collection Time Receive d Time (Source) Location / / Volume Laterality 03/29/2013 12:02 03/29/2013 PM CDT 12:02 PM CDT Jacki Figueroa P.A.-C. LAB BLOOD NON ADD-ON Performing Organization Address City/[facility] Phon e Number [facility] LABORATORIES - [address] [address] [facility] (ABNORMAL) CBC without Differential (03/29/2013 12:02 PM CDT) Patholo gist Method Time Signature Erythrocytes 3.38 (L) 3.90 - [facility] 5.03 LABORATORIES - X10(12)/L [facility] MCV 97.6 81.6 - [facility] 98.3 FL LABORATORIES - [facility] Leukocytes 8.6 3.5 - [facility] 10.5 LABORATORIES - X10(9)/L [facility] Hemoglobin 11.0 (L) 12.0 - [facility] 15.5 G/DL [facility] - [facility] Hematocrit 33.0 (L) 34.9 - [facility] 44.5 % LABORATORIES - [facility] RBC Distrib 13.9 11.9 - [facility] Width 15.5 % [facility] - [facility] Platelet Count 97 (L) 150 - 450 [facility] X10(9)/L [facility] - [facility] Specimen Anatomical Collection Method Collection Time Receive d Time (Source) Location / / Volume Laterality 03/29/2013 12:02 03/29/2013 PM CDT 12:02 PM CDT Jacki PierreCMichael LAB BLOOD ADD-ON Performing Organization Address City/[facility] Code Phon e Number [facility] LABORATORIES - [address] [phone] [facility] Fibrinogen (03/29/2013 12:01 PM CDT) P athologist Signature Fibrinogen, P 260 200 - 430 [facility] MG/DL [facility] Specimen Anatomical Collection Method Collection Time Receive d Time (Source) Location / / Volume Laterality 03/29/2013 12:01 03/29/2013 PM CDT 12:01 PM CDT Jacki PierreCMichael LAB BLOOD ADD-ON Performing Organization Address City/State/[facility] Code Phon e Number [facility] LABORATORIES - [address] [address] [facility] Magnesium (03/29/2013 12:01 PM CDT) P athologist Signature Magnesium, S 2.3 1.7 - 2.3 [facility] MG/DL [facility] Specimen Anatomical Collection Method Collection Time Receive d Time (Source) Location / / Volume Laterality 03/29/2013 12:01 03/29/2013 PM CDT 12:01 PM CDT Jacki PierreCMichael LAB BLOOD ADD-ON Performing Organization Address City/State/ZIP Code Phon e Number [facility] LABORATORIES - [address] [address] [facility] APTT (Activated Partial Thromboplastin Time) (03/29/2013 12:01 PM CDT) P athologist Signature APTT, P 28 28 - 38 SEC [facility] Specimen Anatomical Collection Method Collection Time Receive d Time (Source) Location / / Volume Laterality 03/29/2013 12:01 03/29/2013 PM CDT 12:01 PM CDT Jacki Figueroa P.A.-C. LAB BLOOD ADD-ON Performing Organization Address City/State/ZIP Code Phon e Number [facility] LABORATORIES - [address] [address] [facility] (ABNORMAL) Blood Gas with Coox, Arterial (03/29/2013 12:01 PM CDT) Patholo gist Method Time Signature Arterial Sample Art Line [facility] Site [facility] FIO2 0.60 .21=AIR [facility] Spont. 0 [facility] breaths/min [facility] Mech. 14 [facility] breaths/min [facility] Pulse Oximetry 100 % [facility] pO2 148 (H) 80 - 100 [facility] MM HG [facility] Hb 11.2 (L) 12.0 - [facility] 15.5 G/DL [facility] O2Hb 97.2 94.0 - [facility] 98.0 % [facility] Device Vent [facility] Vent Mode IMPS [facility] End Expiratory 5.0 CM H2O [facility] Pressure [facility] Min. 5.6 [facility] Ventilation [facility] pCO2 43 35 - 45 [facility] MM HG [facility] pH 7.32 (L) 7.35 - [facility] 7.45 PH [facility] Base Excess -4 (L) -2 - 2 [facility] MMOL/L [facility] HCO3 21 (L) 22 - 26 [facility] MMOL/L [facility] COHb 1.2 <3.0 % [facility] MetHb <1.0 <1.6 % [facility] CtO2 15.6 (L) 21.0 - [facility] 23.0 VOL LABORATORIES - % [facility] Specimen Anatomical Collection Method Collection Time Receive d Time (Source) Location / / Volume Laterality 03/29/2013 12:01 03/29/2013 PM CDT 12:01 PM CDT Jacki Figueroa P.A.-C. LAB BLOOD NON ADD-ON Performing Organization Address City/State/ZIP Code Phon e Number [facility] LABORATORIES - [address] [address] [facility] (ABNORMAL) PT (Prothrombin Time) with INR (03/29/2013 12:01 PM CDT) [facility] Method Time Signature Prothrombin 14.0 (H) 9.5 - [facility] Time, P 13.8 SEC LABORATORIES - [facility] INR 1.2 0.8 - 1.2 [facility] LABORATORIES - [facility] Specimen Anatomical Collection Method Collection Time Receive d Time (Source) Location / / Volume Laterality 03/29/2013 12:01 03/29/2013 PM CDT 12:01 PM CDT Jacki Figueroa P.A.-C. LAB BLOOD ADD-ON Performing Organization Address City/[facility]/ZIP Code Phon e Number [facility] LABORATORIES - [address] [address] [facility] Glucose, POCT (03/29/2013 11:59 AM CDT) P athologist Signature Glucose, POCT, 113 70 - 140 [facility] B MG/DL LABORATORIES - [facility] Sample Site, ARTL [facility] Blood Gas, LABORATORIES - POCT [facility] Specimen Anatomical Collection Method Collection Time Receive d Time (Source) Location / / Volume Laterality 03/29/2013 11:59 03/29/2013 AM CDT 11:59 AM CDT Historical Provider LAB POCT ORDERABLES-MANUAL Performing Organization Address City/[facility]/ZIP Code Phon e Number [facility] LABORATORIES - [address] [address] [facility] (ABNORMAL) ACT (Activated Clotting Time), POCT (03/29/2013 11:58 AM CDT) [facility] Method Time Signature Activated 146 (H) 84 - 139 [facility] Clotting Time, SEC LABORATORIES - POCT [facility] Specimen Anatomical Collection Method Collection Time Receive d Time (Source) Location / / Volume Laterality 03/29/2013 11:58 03/29/2013 AM CDT 11:58 AM CDT Historical Provider LAB POCT ORDERABLES - DEVICE Performing Organization Address City/State/ZIP Code Phon e Number [facility] LABORATORIES - [address] [place], [place] [address] [facility] DX Chest Portable 1 View (03/29/2013 11:14 AM CDT) Anatomical Region Laterality Modality Chest N/A Radiographic Imaging Specimen (Source) Anatomical Collection Method Collection Time Re ceived Time Location / / Volume Laterality 03/29/2013 11:14 AM CDT Narrative 03/29/2013 11:20 AM CDT 29-Mar-2013 11:14:00 ??Exam: Portable-Chest Indications: [id number], Atrioventricular can al defect ORIGINAL REPORT - 29-Mar-2013 11:20:00 Chest; 1 view: ETT at the thao and should be pulled b ack. Two right IJ line tips in the proximal SVC. Sternotomy. Cardiomegaly. Mediastinal drain. Prominent pulmonary vascularity. Electronically signed by: ?? Indigo.F. ??King TRINH. ?? [id number] 29-Mar-2013 11 :20 Procedure Note Parvez Jonas M.D. - 09/22/2017Format ting of this note might be different from the original. 29-Mar-2013 11:14:00 Exam: Portable-Ches t Indications: [id number], Atrioventricular can al defect ORIGINAL REPORT - 29-Mar-2013 11:20:00 Chest; 1 view: ETT at the thao and should be pulled b ack. Two right IJ line tips in the proximal SVC. Sternotomy. Cardiomegaly. Mediastinal drain. Prominent pulmonary vascularity. Electronically signed by: Arslan Jonas MD. [id number] 29-Mar-2013 11:20 Usman MANG DIAGNOSTIC IMAGING PROCE DURES Fibrinogen (03/29/2013 10:27 AM CDT) P athologist Signature Fibrinogen, P 301 200 - 430 [facility] MG/DL LABORATORIES - [facility] Comment: [place] Specimen Anatomical Collection Method Collection Time Receive d Time (Source) Location / / Volume Laterality 03/29/2013 10:27 03/29/2013 AM CDT 10:27 AM CDT Narrative [facility] - 03/29/2013 10:42 AM CDT [place] Historical Provider LAB BLOOD ADD-ON Performing Organization Address City/[facility]/ZIP Code Phon e Number [facility] - [address] [address] [facility] APTT (Activated Partial Thromboplastin Time) (03/29/2013 10:27 AM CDT) P athologist Signature APTT, P 30 28 - 38 SEC [facility] Comment: [place] Specimen Anatomical Collection Method Collection Time Receive d Time (Source) Location / / Volume Laterality 03/29/2013 10:27 03/29/2013 AM CDT 10:27 AM CDT Narrative [facility] - 03/29/2013 10:42 AM CDT [place] Historical Provider LAB BLOOD ADD-ON Performing Organization Address City/[facility]/ZIP Code Phon e Number [facility] - [address] [address] [facility] PT (Prothrombin Time) with INR (03/29/2013 10:27 AM CDT) Patholo gist Method Time Signature Prothrombin 13.8 9.5 - 13.8 [facility] Time, P SEC [facility] Comment: [place] INR 1.2 0.8 - 1.2 [facility] Comment: [place] Specimen Anatomical Collection Method Collection Time Receive d Time (Source) Location / / Volume Laterality 03/29/2013 10:27 03/29/2013 AM CDT 10:27 AM CDT Narrative [facility] - 03/29/2013 10:42 AM CDT [place] Historical Provider LAB BLOOD ADD-ON Performing Organization Address City/[facility]/ZIP Code Phon e Number [facility] - [address] [place] [address] [facility] (ABNORMAL) Platelet Count (03/29/2013 10:27 AM CDT) Analysis Performed At Patho logist Time Signature HX Platelet 83 (L) 150 - 450 [facility] Count X10(9)/L [facility] Comment: [place] Specimen Anatomical Collection Method Collection Time Receive d Time (Source) Location / / Volume Laterality 03/29/2013 10:27 03/29/2013 AM CDT 10:27 AM CDT Narrative [facility] - 03/29/2013 10:34 AM CDT [place] Historical Provider LAB BLOOD ADD-ON Performing Organization Address City/[facility]/ZIP Code Phon e Number [facility] - [address] [address] [facility] Glucose, Whole Blood (03/29/2013 10:15 AM CDT) P athologist Signature Glucose, S 104 70 - 140 [facility] MG/DL [facility] Comment: [place] Specimen Anatomical Collection Method Collection Time Receive d Time (Source) Location / / Volume Laterality 03/29/2013 10:15 03/29/2013 AM CDT 10:15 AM CDT Narrative [facility] - 03/29/2013 10:18 AM CDT [place] Historical Provider LAB BLOOD TROPONIN Performing Organization Address City/[facility]/ZIP Code Phon e Number [facility] - [address] [address] [facility] Calcium, Ionized (03/29/2013 10:15 AM CDT) P athologist Signature Calcium, 5.08 4.65 - [facility] Ionized, B 5.30 MG/DL [facility] Comment: [place] Specimen Anatomical Collection Method Collection Time Receive d Time (Source) Location / / Volume Laterality 03/29/2013 10:15 03/29/2013 AM CDT 10:15 AM CDT Narrative [facility] - 03/29/2013 10:18 AM CDT [place] Historical Provider LAB BLOOD NON ADD-ON Performing Organization Address City/State/ZIP Code Phon e Number [facility] LABORATORIES - [address] [address] [facility] Potassium, Blood (03/29/2013 10:15 AM CDT) P athologist Signature Potassium, B 4.1 3.6 - 5.2 [facility] MMOL/L [facility] Comment: [place] Specimen Anatomical Collection Method Collection Time Receive d Time (Source) Location / / Volume Laterality 03/29/2013 10:15 03/29/2013 AM CDT 10:15 AM CDT Narrative [facility] - 03/29/2013 10:18 AM CDT [place] Historical Provider LAB BLOOD NON ADD-ON Performing Organization Address City/[facility]/ZIP Code Phon e Number [facility] - [address] [address] [facility] (ABNORMAL) Blood Gas with Coox, Arterial (03/29/2013 10:15 AM CDT) P athologist Signature pO2 137 (H) 80 - 100 [facility] MM HG [facility] Comment: [place] pCO2 36 35 - 45 MM HG [facility] Comment: [place] O2Hb 98.2 (H) 94.0 - 98.0 % [facility] Comment: [place] COHb 1.2 <3.0 % [facility] Comment: [place] pH 7.39 7.35 - 7.45 PH [facility] Comment: [place] Base Excess -3 (L) -2 - 2 MMOL/L [facility] Comment: [place] HCO3 22 22 - 26 MMOL/L [facility] Comment: [place] Hb 10.4 (L) 12.0 - 15.5 G/DL [facility] Comment: [place] MetHb <1.0 <1.6 % [facility] Comment: [place] CtO2 14.7 (L) 21.0 - 23.0 VOL % [facility] Comment: [place] Specimen Anatomical Collection Method Collection Time Receive d Time (Source) Location / / Volume Laterality 03/29/2013 10:15 03/29/2013 AM CDT 10:15 AM CDT Narrative [facility] - 03/29/2013 10:18 AM CDT [place] Historical Provider LAB BLOOD NON ADD-ON Performing Organization Address City/[facility]/ZIP Code Phon e Number [facility] - [address] [address] [facility] Sodium (03/29/2013 10:15 AM CDT) athologist Signature Sodium, B 136 135 - 145 [facility] MMOL/L [facility] Comment: [place] Specimen Anatomical Collection Method Collection Time Receive d Time (Source) Location / / Volume Laterality 03/29/2013 10:15 03/29/2013 AM CDT 10:15 AM CDT Narrative [facility] - 03/29/2013 10:18 AM CDT [place] Historical Provider LAB BLOOD ADD-ON Performing Organization Address City/State/ZIP [facility] Phon e Number [facility] LABORATORIES - [address] [address] [facility] (ABNORMAL) ACT (Activated Clotting Time), POCT (03/29/2013 10:13 AM CDT) [facility] Method Time Signature Activated 158 (H) 84 - 139 [facility] Clotting Time, SEC LABORATORIES - POCT [facility] Specimen Anatomical Collection Method Collection Time Receive d Time (Source) Location / / Volume Laterality 03/29/2013 10:13 03/29/2013 AM CDT 10:13 AM CDT Historical Provider LAB POCT ORDERABLES - DEVICE Performing Organization Address City/[facility] Phon e Number [facility] LABORATORIES - [address] [address] [facility] (ABNORMAL) ACT (Activated Clotting Time), POCT (03/29/2013 9:41 AM CDT) [facility] Method Time Signature Activated 538 (H) 84 - 139 [facility] Clotting Time, SEC LABORATORIES - POCT [facility] Specimen Anatomical Collection Method Collection Time Receive d Time (Source) Location / / Volume Laterality 03/29/2013 9:41 AM 3 9:41 CDT AM CDT Historical Provider LAB POCT ORDERABLES - DEVICE Performing Organization Address City/[facility] Phon e Number [facility] LABORATORIES - [address] [address] [facility] (ABNORMAL) Sodium (03/29/2013 9:29 AM CDT) athologist Signature Sodium, B 133 (L) 135 - 145 [facility] MMOL/L [facility] Comment: [place] 608 Specimen Anatomical Collection Method Collection Time Receive d Time (Source) Location / / Volume Laterality 03/29/2013 9:29 AM 3 9:29 CDT AM CDT Narrative [facility] - 03/29/2013 9:31 AM CDT [place] 608 Historical Provider LAB BLOOD ADD-ON Performing Organization Address City/State/ZIP Code Phon e Number [facility] LABORATORIES - [address] [place], [place] [address] [facility] (ABNORMAL) Calcium, Ionized (03/29/2013 9:29 AM CDT) [facility] Method Time Signature Calcium, 4.06 (L) 4.65 - [facility] Ionized, B 5.30 LABORATORIES - MG/DL [facility] Comment: [place] 608 Specimen Anatomical Collection Method Collection Time Receive d Time (Source) Location / / Volume Laterality 03/29/2013 9:29 AM 3 9:29 CDT AM CDT Narrative [facility] - 03/29/2013 9:31 AM CDT [place] 608 Historical Provider LAB BLOOD NON ADD-ON Performing Organization Address City/[facility]/ZIP Code Phon e Number [facility] LABORATORIES - [address] [phone] 05 [facility] Potassium, Blood (03/29/2013 9:29 AM CDT) P athologist Signature Potassium, B 4.6 3.6 - 5.2 [facility] MMOL/L [facility] Comment: [place] 608 Specimen Anatomical Collection Method Collection Time Receive d Time (Source) Location / / Volume Laterality 03/29/2013 9:29 AM 3 9:29 CDT AM CDT Narrative [facility] - 03/29/2013 9:31 AM CDT [place] 608 Historical Provider LAB BLOOD NON ADD-ON Performing Organization Address City/State/ZIP Code Phon e Number [facility] LABORATORIES - [address] [address] [facility] (ABNORMAL) Blood Gas with Coox, Arterial (03/29/2013 9:29 AM CDT) P athologist Signature pO2 256 (H) 80 - 100 [facility] MM HG [facility] Comment: [place] 608 pCO2 44 35 - 45 MM HG [facility] Comment: [place] 608 HCO3 25 22 - 26 MMOL/L [facility] Comment: [place] 608 Hb 8.6 (L) 12.0 - 15.5 G/DL [facility] Comment: [place] 608 O2Hb 98.9 (H) 94.0 - 98.0 % [facility] Comment: [place] 608 COHb 1.1 <3.0 % [facility] Comment: [place] 608 MetHb <1.0 <1.6 % [facility] Comment: [place] 608 CtO2 12.6 (L) 21.0 - 23.0 VOL % [facility] Comment: [place] 608 pH 7.37 7.35 - 7.45 PH [facility] Comment: [place] 608 Base Excess 0 -2 - 2 MMOL/L [facility] Comment: [place] 608 Specimen Anatomical Collection Method Collection Time Receive d Time (Source) Location / / Volume Laterality 03/29/2013 9:29 AM 3 9:29 CDT AM CDT Narrative [facility] - 03/29/2013 9:31 AM CDT [place] 608 Historical Provider LAB BLOOD NON ADD-ON Performing Organization Address City/State/ZIP Code Phon e Number [facility] - [address] [place], [place] [address] [facility] Glucose, Whole Blood (03/29/2013 9:29 AM CDT) P athologist Signature Glucose, S 91 70 - 140 [facility] MG/DL [facility] Comment: [place] 608 Specimen Anatomical Collection Method Collection Time Receive d Time (Source) Location / / Volume Laterality 03/29/2013 9:29 AM 3 9:29 CDT AM CDT Narrative [facility] - 03/29/2013 9:31 AM CDT [place] 608 Historical Provider LAB BLOOD TROPONIN Performing Organization Address City/[facility]/ZIP Code Phon e Number [facility] LABORATORIES - [address] [place], [place] [address] [facility] (ABNORMAL) ACT (Activated Clotting Time), POCT (03/29/2013 9:14 AM CDT) [facility] Time Signature Activated 563 (H) 84 - 139 [facility] Clotting Time, SEC LAB[facility]ATORIES - POCT [facility] [facility]OSPITAL Specimen Anatomical Collection Method Collection Time Receive d Time (Source) Location / / Volume Laterality 03/29/2013 9:14 AM 3 9:14 CDT AM CDT Historical Provider LAB POCT ORDERABLES - DEVICE Performing Organization Address [facility] Phon e Number [facility] LABORATORIES - [address] [phone] [facility] (ABNORMAL) ACT (Activated Clotting Time), POCT (03/29/2013 8:52 AM CDT) [facility] Method Time Signature Activated 469 (H) 84 - 139 [facility] Clotting Time, SEC LABORATORIES - POCT [facility] Specimen Anatomical Collection Method Collection Time Receive d Time (Source) Location / / Volume Laterality 03/29/2013 8:52 AM 3 8:52 CDT AM CDT Historical Provider LAB POCT ORDERABLES - DEVICE Performing Organization Address [facility] Code Phon e Number [facility]IES - [address] [phone] [facility] HX intra-Op Auto Tx (03/29/2013 8:40 AM CDT) Analysis Performed At Path logist Time Signature HXRBC # UNITS 1.89 [facility] TRANSFUSED LABORATORIES [facility] HXRBC UNIT INFO RBC [facility] Comment: Component Type Intraoperative Salvaged R BC Unit Number =[id number] Issue Date/Time [id number] Specimen (Source) Anatomical Collection Method Collection Time Re ceived Time Location / / Volume Laterality 03/29/2013 8:40 AM CDT Historical Provider LAB HISTORICAL ORDERS Performing Organization Address [facility]/ZIP Code Phon e Number [facility] LABORATORIES - [address] [phone] [facility] Echocardiogram (03/29/2013 8:00 AM CDT) Anatomical Region Laterality Modality Echocardiography Specimen (Source) Anatomical Collection Method Collection Time Re ceived Time Location / / Volume Laterality 03/29/2013 8:00 AM CDT Historical Provider CV ECHO PROCEDURES Glucose, Whole Blood (03/29/2013 7:57 AM CDT) athologist Signature Glucose, S 94 70 - 140 [facility] MG/DL [facility] Comment: [place] Specimen Anatomical Collection Method Collection Time Receive d Time (Source) Location / / Volume Laterality 03/29/2013 7:57 AM 3 7:57 CDT AM CDT Narrative [facility] - 03/29/2013 8:00 AM CDT [place]wn [place] Historical Provider LAB BLOOD TROPONIN Performing Organization Address City/[facility] Phon e Number [facility]ORATORIES - [address] [address] [facility] Sodium (03/29/2013 7:57 AM CDT) athologist Signature Sodium, B 140 135 - 145 [facility] MMOL/L [facility] Comment: [place] Specimen Anatomical Collection Method Collection Time Receive d Time (Source) Location / / Volume Laterality 03/29/2013 7:57 AM 3 7:57 CDT AM CDT Narrative [facility] - 03/29/2013 8:00 AM CDT [place]wn [place] Historical Provider LAB BLOOD ADD-ON Performing Organization Address City/[facility]/ZIP Code Phon e Number [facility]IES - [address] [phone] [facility] (ABNORMAL) Blood Gas with Coox, Arterial (03/29/2013 7:57 AM CDT) athologist Signature pH 7.33 (L) 7.35 - [facility] 7.45 PH [facility] Comment: [place]wn [place] Base Excess 1 -2 - 2 MMOL/L [facility] LA BORATORIES [facility] Comment: [place] O2Hb 97.7 94.0 - 98.0 % [facility] LABO RATORIES [facility] Comment: [place] COHb 1.0 <3.0 % [facility] LABORATO URIEL [facility] Comment: [place] pO2 129 (H) 80 - 100 MM HG [facility] Comment: [place] pCO2 51 (H) 35 - 45 MM HG [facility] LABO RATORIES [facility] Comment: [place] HCO3 27 (H) 22 - 26 MMOL/L [facility] Comment: [place] Hb 12.4 12.0 - 15.5 G/DL [facility] L [facility] Comment: [place] MetHb <1.0 <1.6 % [facility] LABORATO URIEL [facility] Comment: [place] CtO2 17.3 (L) 21.0 - 23.0 VOL % [facility] Comment: [place] Specimen Anatomical Collection Method Collection Time Receive d Time (Source) Location / / Volume Laterality 03/29/2013 7:57 AM 3 7:57 CDT AM CDT Narrative [facility] - 03/29/2013 8:00 AM CDT [place] Historical Provider LAB BLOOD NON ADD-ON Performing Organization Address City/[facility] Phon e Number [facility] - [address] [phone] [facility] Potassium, Blood (03/29/2013 7:57 AM CDT) athologist Signature Potassium, B 4.1 3.6 - 5.2 [facility] MMOL/L [facility] Comment: [place] Specimen Anatomical Collection Method Collection Time Receive d Time (Source) Location / / Volume Laterality 03/29/2013 7:57 AM 3 7:57 CDT AM CDT Narrative [facility] - 03/29/2013 8:00 AM CDT [place] Historical Provider LAB BLOOD NON ADD-ON Performing Organization Address City/[facility] Phon e Number [facility] - [address] [phone] [facility] Calcium, Ionized (03/29/2013 7:57 AM CDT) P athologist Signature Calcium, 4.93 4.65 - [facility] Ionized, B 5.30 MG/DL [facility] Comment: [place] Specimen Anatomical Collection Method Collection Time Receive d Time (Source) Location / / Volume Laterality 03/29/2013 7:57 AM 3 7:57 CDT AM CDT Narrative [facility] LABORATORIES - [facility] - 03/29/2013 8:00 AM CDT Drawn [place] Historical Provider LAB BLOOD NON ADD-ON Performing Organization Address City/State/ZIP Code Phon e Number [facility]OR[facility]IES - [address] [place], [place] [address] [facility] (ABNORMAL) ACT (Activated Clotting Time), POCT (03/29/2013 7:55 AM CDT) [facility] gist Method Time Signature Activated 146 (H) 84 - 139 [facility] Clotting Time, SEC LABORATORIES - POCT [facility] Specimen Anatomical Collection Method Collection Time Receive d Time (Source) Location / / Volume Laterality 03/29/2013 7:55 AM 3 7:55 CDT AM CDT Historical Provider LAB POCT ORDERABLES - DEVICE Performing Organization Address City/[facility] Code Phon e Number [facility] LABORATORIES - [address] [phone] [facility] documented in this encounter Visit Diagnoses Not on filedocumented in this encounter
--- OUTSIDE RECORDS SUMMARY | 2022-04-25 16:07 | XMS_ITS | Encounter Summary ---
:1975 Author Organization [facility] Address [address] [place] [address] Care Team Providers Name Role Phone Unavailable Primary Care Provider Unavailable Encounter Details Date Type Department Care Team Description 08/20/2012 Hospital Encounter HX [facility] XRAY Provider, Histori bro Social History Tobacco Use Types Packs/Day Years Used Date Smoking Tobacco: Never Assessed Sex Assigned at Date Recorded Not on file documented as of this encounter Plan of Treatment Not on filedocumented as of this encounter Visit Diagnoses Not on filedocumented in this encounter
--- OUTSIDE RECORDS SUMMARY | 2022-04-25 16:07 | XMS_ITS | Encounter Summary ---
:1975 Author Organization [facility] Address [address] [place] [address] Care Team Providers Name Role Phone Unavailable Primary Care Provider Unavailable Encounter Details Date Type Department Care Team Description 07/19/2012 Hospital Encounter HX [facility] ANTICOAG Provider, His torical Social History Tobacco Use Types Packs/Day Years Used Date Smoking Tobacco: Never Assessed Sex Assigned at Date Recorded Not on file documented as of this encounter Plan of Treatment Not on filedocumented as of this encounter Procedures Procedure Name Priority Date/Time Associated Comments Diagnosis PROTHROMBIN TIME Routine 07/19/2012 11:17 Results for this (PT), P AM EXECUTIVE COORDINATOR procedure are i n the results section. documented in this encounter Results PT (Prothrombin Time) with INR (07/19/2012 11:17 AM EXECUTIVE COORDINATOR) P athologist Signature INR 4.20 [facility] Specimen (Source) Anatomical Collection Method Collection Time Re ceived Time Location / / Volume Laterality 07/19/2012 11:17 AM EXECUTIVE COORDINATOR Historical Provider LAB BLOOD ADD-ON Performing Organization Address City/State/ZIP Code Phon e Number [facility] documented in this encounter Visit Diagnoses Not on filedocumented in this encounter
--- OUTSIDE RECORDS SUMMARY | 2022-04-25 16:07 | XMS_ITS | Encounter Summary ---
:1975 Author Organization [facility] Address [address] [place] [id number] Care Team Providers Name Role Phone Unavailable Primary Care Provider Unavailable Encounter Details Date Type Department Care Team Description 02/20/2013 Hospital Encounter HX [facility] Antonia Jenkins RMichaelNMichael Social History Tobacco Use Types Packs/Day Years Used Date Smoking Tobacco: Never Assessed Sex Assigned at Date Recorded Not on file documented as of this encounter Plan of Treatment Not on filedocumented as of this encounter Visit Diagnoses Not on filedocumented in this encounter
--- OUTSIDE RECORDS SUMMARY | 2022-04-25 16:07 | XMS_ITS | Encounter Summary ---
:1975 Author Organization [facility] Address [address] [place] [address] Care Team Providers Name Role Phone Unavailable Primary Care Provider Unavailable Encounter Details Date Type Department Care Team Description 11/22/2012 Hospital Encounter HX [facility] ANTICOAG Provider, His torical Social History Tobacco Use Types Packs/Day Years Used Date Smoking Tobacco: Never Assessed Sex Assigned at Date Recorded Not on file documented as of this encounter Plan of Treatment Not on filedocumented as of this encounter Procedures Procedure Name Priority Date/Time Associated Comments Diagnosis PROTHROMBIN TIME Routine 11/22/2012 10:01 Results for this (PT), P AM CDT procedure are i n the results section. documented in this encounter Results PT (Prothrombin Time) with INR (11/22/2012 10:01 AM CDT) P athologist Signature INR 2.43 [facility] Specimen (Source) Anatomical Collection Method Collection Time Re ceived Time Location / / Volume Laterality 11/22/2012 10:01 AM CDT Historical Provider LAB BLOOD ADD-ON Performing Organization Address City/State/ZIP Code Phon e Number [facility] documented in this encounter Visit Diagnoses Not on filedocumented in this encounter
--- OUTSIDE RECORDS SUMMARY | 2022-04-25 16:07 | XMS_ITS | Encounter Summary ---
:1975 Author Organization [facility] Address [address] [place] [id number] Care Team Providers Name Role Phone Unavailable Primary Care Provider Unavailable Encounter Details Date Type Department Care Team Description 09/24/2012 Hospital [facility] Marsha Garibay M.D. [address] [place], [place] [address] (Wo rk) Social History Tobacco Use Types Packs/Day Years Used Date Smoking Tobacco: Never Assessed Sex Assigned at Date Recorded Not on file documented as of this encounter Progress Notes Sridhar Garibay M.D. - 09/24/2012 3:30 PM CDT [id number] This office note has been dictated. Source: [facility] Document Id: [id number] Sridhar Garibay M.D. - 09/24/2012 3:30 PM CDT [id number] CLINIC ENCOUNTER SUBJECTIVE: Patient presents today with rectal bleeding. Apparently she had complained of abnormal vaginal bleeding and had seen the reservationist and apparently it was more rectal bleeding. Her mother is here with her. It was occasional with a bowel movement but has not had the problem now over the past couple weeks. She denies any constipation. The bowel movements are normal, regular, soft, brown. This apparently was occurring last fall up until recently. She did have a recent normal hemoglobin. No obvious hemorrhoidal symptoms. No itching or pain. No family history of colon cancer. No abdominal pain, vomiting, fever. They also wondered if she needed an ear wash. She had it before for cerumen impaction. Mother wonders about cardiology evaluation. Mother tells me it has been a long time. Looking through the chart, she has had an echo in 2000. They make no mention of any complaints of symptoms at this point. PAST MEDICAL HISTORY/FAMILY HISTORY/SOCIAL HISTORY/MEDICATIONS/ALLERGIES: In the chart and are reviewed today. REVIEW OF SYSTEMS: General, eyes, ENT, neck, respiratory, cardiovascular, gastrointestinal, genitourinary, lymphatic, musculoskeletal, skin, neurologic-negative except for that stated above. OBJECTIVE: General: Patient alert and oriented, pleasant and cooperative with exam. No acute distress. Vitals: See nursing note. Head: Atraumatic, normocephalic. Eyes: Unremarkable. Discs are sharp bilaterally. Ears: She has mild to moderate wax bilateral ear canals. Tympanic membranes appear normal bilaterally. Nose: Nares [...] Reflexes are 2+ and symmetric. ASSESSMENT: 1. Rectal bleeding, suspect hemorrhoidal. 2. Mild cerumen impaction. 3. Down syndrome with a history of abnormal echo. PLAN: We discussed options. At a minimum I would suggest starting Metamucil. They decline adding a suppository at this point. We discussed a colonoscopy but they would prefer to see the general surgeon in clinic first to go over the options, perhaps anoscopy or a flex sig. Otherwise, discussed Murine ear drops for her ears and she can see cardiology for an evaluation as well. Sridhar Garibay M.D. RADAMES//law cc: Source: [facility] Document Id: [id number] documented in this encounter Plan of Treatment Not on filedocumented as of this encounter Visit Diagnoses Not on filedocumented in this encounter
--- OUTSIDE RECORDS SUMMARY | 2022-04-25 16:07 | XMS_ITS | Encounter Summary ---
:1975 Author Organization [facility] Address [address] [place] [address] Care Team Providers Name Role Phone Unavailable Primary Care Provider Unavailable Encounter Details Date Type Department Care Team Description 08/02/2012 Hospital Encounter HX [facility] Juan Lau [place]. [address] [place] [phone] (Wo rk) Social History Tobacco Use Types Packs/Day Years Used Date Smoking Tobacco: Never Assessed Sex Assigned at Date Recorded Not on file documented as of this encounter Progress Notes Conversion, Historical Provider Ser - 08/02/2012 3:30 PM CST [id number] artat1{\leveltext \'02\'05.}{\levelnumbers \'01}}{\listlevel\levelnfc0\levelfollow0\levelstartat1{\leveltext \'02\'06.}{\levelnumbers \'01}}{\listlevel\levelnfc0\levelfollow0\levelstartat1{\leveltext \' 02\'07.}{\levelnumbers \'01}}{\listlevel\levelnfc0\levelfollow0\levelstartat1{\leveltext \'02\'08.}{\ levelnumbers \'01}}{\listname HTML-List1;}\[id number]}{\list\listtemplateid2{\listlevel\levelnf c23\levelfollow0\levelstartat1{\leveltext \'01\'b7}{\levelnumbers}\f1\fcs1\f1\af1\fcs0\rtlch\f1\af1\l trch\fs20}{\listlevel\levelnfc0\levelfollow0\levelstartat1{\leveltext \'02\'01.}{\levelnumbers \'01}} {\listlevel\levelnfc0\levelfollow0\levelstartat1{\leveltext \'02\'02.}{\levelnumbers \'01}}{\listleve l\levelnfc0\levelfollow0\levelstartat1{\leveltext \'02\'03.}{\levelnumbers \'01}}{\listlevel\levelnfc0\levelfollow0\levelstartat1{\leveltext \'02\'04.}{\levelnumbers \'01}}{\listlevel\levelnfc0\levelfol low0\levelstartat1{\leveltext \'02\'05.}{\levelnumbers \'01}}{\listlevel\levelnfc0\levelfollow0\levelstartat1{\leveltext \'02\'06.}{\levelnumbers \'01}}{\listlevel\levelnfc0\levelfollow0\levelstartat1{\leveltext \'02\'07.}{\levelnumbers \'01}}{\listlevel\levelnfc0\levelfollow0\levelstartat1{\leveltext \'02\'08.}{\levelnumbers \'01}}{\listname HTML-List2;}\[id number]}{\list\listtemplateid3{\listl evel\\levelfollow0\levelstartat1{\leveltext \'01\'b7}{\levelnumbers}\f1\fcs1\f1\af1\fcs0\rt lch\f1\af1\ltrch\fs20}{\listlevel\levelnfc0\levelfollow0\levelstartat1{\leveltex t \'02\'01.}{\levelnumbers \'01}}{\listlevel\levelnfc0\levelfollow0\levelstartat1{\leveltext \'02\'02.}{\levelnumbers \'01 }}{\listlevel\levelnfc0\levelfollow0\levelstartat1{\leveltext \'02\'03.}{\levelnumbers \'01}}{\listle gilma\levelnfc0\levelfollow0\levelstartat1{\leveltext \'02\04.}{\levelnumbers \'01}}{\listlevel\levelnfc0\levelfollow0\levelstartat1{\leveltext \'02\'05.}{\levelnumbers \'}}{\listlevel\levelnfc0\levelf ollow0\levelstartat1{\leveltext \'02\'06.}{\levelnumbers \'01}}{\listlevel\levelnfc0\levelfollow0\levelstartat1{\leveltext \'02\'07.}{\levelnumbers \'01}}{\listlevel\levelnfc0\levelfollow0\levelstartat1 {\leveltext \'02\'08.}{\levelnumbers \'01}}{\listname HTML-List3;}\[id number]}{\list\listtempla teid4{\listlevel\kgcornzs27\levelfollow0\levelstartat1{\leveltext \'01\'b7}{\levelnumbers}\f1\fcs1\f1 \af1\fcs0\rtlch\f1\af1\ltrch\fs20}{\listlevel\levelnfc0\levelfollow0\levelstarta t1{\leveltext \'02\'01.}{\levelnumbers \'01}}{\listlevel\levelnfc0\levelfollow0\levelstartat1{\leveltext \'02\'02.}{\levelnumbers \'01}}{\listlevel\levelnfc0\levelfollow0\levelstartat1{\leveltext \'02\'03.}{\levelnumbers \' 01}}{\listlevel\levelnfc0\levelfollow0\levelstartat1{\leveltext \'02\'04.}{\levelnumbers \'01}}{\list level\levelnfc0\levelfollow0\levelstartat1{\leveltext \'02\'05.}{\levelnumbers \'01}}{\listlevel\levelnfc0\levelfollow0\levelstartat1{\leveltext \'02\'06.}{\levelnumbers \'01}}{\listlevel\levelnfc0\leve lfollow0\levelstartat1{\leveltext \'02\'07.}{\levelnumbers \'01}}{\listlevel\levelnfc0\levelfollow0\levelstartat1{\leveltext \'02\'08.}{\levelnumbers \'01}}{\listname HTML-List4;}\[id number]}{\lis t\cnkoqqynjdqulo64{\listlevel\levelnfc0\levelfollow0\levelstartat1{\leveltext \'02\'00.}{\levelnumbers \'01}}{\listlevel\levelnfc0\levelfollow0\levelstartat1{\leveltext \'02\'01.}{\levelnumbers \'01}}{\ listlevel\levelnfc0\levelfollow0\levelstartat1{\leveltext \'02\'02.}{\levelnumbers \'01}}{\listlevel\ levelnfc0\levelfollow0\levelstartat1{\leveltext \'02\03.}{\levelnumbers \'01}}{\listlevel\levelnfc0\levelfollow0\levelstartat1{\leveltext \'02\04.}{\levelnumbers \'01}}{\listlevel\levelnfc0\levelfollo w0\levelstartat1{\leveltext \'02\05.}{\levelnumbers \'01}}{\listlevel\levelnfc0\levelfollow0\levelstartat1{\leveltext \'02\06.}{\levelnumbers \'01}}{\listlevel\levelnfc0\levelfollow0\levelstartat1{\leveltext \'\07.}{\levelnumbers \'01}}{\listlevel\levelnfc0\levelfollow0\levelstartat1{\leveltext \' \08.}{\levelnumbers \'01}}{\listname [id number];}\[id number]}{\list\jugwcxcwpjmkat28{\ listlevel\levelnfc0\levelfollow0\levelstartat1{\leveltext \'02\'00.}{\levelnumbers \'01}}{\listlevel\ levelnfc0\levelfollow0\levelstartat1{\leveltext \'\'.}{\levelnumbers \'01}}{\listlevel\levelnfc0\levelfollow0\levelstartat1{\leveltext \'02\'02.}{\levelnumbers \'01}}{\listlevel\levelnfc0\levelfollo w0\levelstartat1{\leveltext \'\'03.}{\levelnumbers \'01}}{\listlevel\levelnfc0\levelfollow0\levelstartat1{\leveltext \'\04.}{\levelnumbers \'01}}{\listlevel\levelnfc0\levelfollow0\levelstartat1{\leveltext \'02\05.}{\levelnumbers \'01}}{\listlevel\levelnfc0\levelfollow0\levelstartat1{\leveltext \' 02\06.}{\levelnumbers \'01}}{\listlevel\levelnfc0\levelfollow0\levelstartat1{\leveltext \'02\07.}{\ levelnumbers \'01}}{\listlevel\levelnfc0\levelfollow0\levelstartat1{\leveltext \'02\08.}{\levelnumbers \'01}}{\listname [id number]_6;}\[id number]}{\list\flyavhlclasdid52{\listlevel\levelnfc0 \levelfollow0\levelstartat1{\leveltext \'02\'00.}{\levelnumbers \'01}}{\listlevel\levelnfc0\levelfollow0\levelstartat1{\leveltext \'02\'01.}{\levelnumbers \'01}}{\listlevel\levelnfc0\levelfollow0\levelst artat1{\leveltext \'02\'02.}{\levelnumbers \'01}}{\listlevel\levelnfc0\levelfollow0\levelstartat1{\leveltext \'02\'03.}{\levelnumbers \'01}}{\listlevel\levelnfc0\levelfollow0\levelstartat1{\leveltext \' 02\'04.}{\levelnumbers \'01}}{\listlevel\levelnfc0\levelfollow0\levelstartat1{\leveltext \'02\'05.}{\ levelnumbers \'01}}{\listlevel\levelnfc0\levelfollow0\levelstartat1{\leveltext \'02\'06.}{\levelnumbers \'01}}{\listlevel\levelnfc0\levelfollow0\levelstartat1{\leveltext \'02\07.}{\levelnumbers \'01}}{ \listlevel\levelnfc0\levelfollow0\levelstartat1{\leveltext \'02\08.}{\levelnumbers \'01}}{\listname [id number];}\[id number]}{\list\ukkggutuikkmaw87{\listlevel\levelnfc0 \levelfollow0\levelstartat1{\leveltext \'02\'00.}{\levelnumbers \'01}}{\listlevel\levelnfc0\levelfollow0\levelstartat1{\leveltext \'02\'01.}{\levelnumbers \'01}}{\listlevel\levelnfc0\levelfollow0\levelstartat1{\leveltext \' 02\'02.}{\levelnumbers \'01}}{\listlevel\levelnfc0\levelfollow0\levelstartat1{\leveltext \'02\'03.}{\ levelnumbers \'01}}{\listlevel\levelnfc0\levelfollow0\levelstartat1{\leveltext \'02\'04.}{\levelnumbers \'01}}{\listlevel\levelnfc0\levelfollow0\levelstartat1{\leveltext \'02\'05.}{\levelnumbers \'01}}{ \listlevel\levelnfc0\levelfollow0\levelstartat1{\leveltext \'02\'06.}{\levelnumbers \'01}}{\listlevel \levelnfc0\levelfollow0\levelstartat1{\leveltext \'02\'07.}{\levelnumbers \'01}}{\listlevel\levelnfc0\levelfollow0\levelstartat1{\leveltext \'02\'08.}{\levelnumbers \'01}}{\listname [id number]_1;}\l [id number]}{\list\dndhcnjggajzqz82{\listlevel\levelnfc0\levelfollow0\levels tartat1{\leveltext \'02\'00.}{\levelnumbers \'01}}{\listlevel\levelnfc0\levelfollow0\levelstartat1{\leveltext \'02\'01.}{\ levelnumbers \'01}}{\listlevel\levelnfc0\levelfollow0\levelstartat1{\leveltext \'02\'02.}{\levelnumbers \'01}}{\listlevel\levelnfc0\levelfollow0\levelstartat1{\leveltext \'02\'03.}{\levelnumbers \'01}}{ \listlevel\levelnfc0\levelfollow0\levelstartat1{\leveltext \'02\'04.}{\levelnumbers \'01}}{\listlevel \levelnfc0\levelfollow0\levelstartat1{\leveltext \'02\'05.}{\levelnumbers \'01}}{\listlevel\levelnfc0\levelfollow0\levelstartat1{\leveltext \'02\'06.}{\levelnumbers \'01}}{\listlevel\levelnfc0\levelfoll ow0\levelstartat1{\leveltext \'02\'07.}{\levelnumbers \'01}}{\listlevel\levelnfc0\levelfollow0\levelstartat1{\leveltext \'02\'08.}{\levelnumbers \'01}}{\listname [id number];}\[id number]}{\li st\ycuefkkuuqojpp60{\listlevel\levelnfc0\levelfollow0\levelstartat1{\leveltext \'02\'00.}{\levelnumbers \'01}}{\listlevel\levelnfc0\levelfollow0\levelstartat1{\leveltext \'02\'01.}{\levelnumbers \'01}}{ \listlevel\levelnfc0\levelfollow0\levelstartat1{\leveltext \'02\'02.}{\levelnumbers \'01}}{\listlevel \levelnfc0\levelfollow0\levelstartat1{\leveltext \'02\'03.}{\levelnumbers \'01}}{\listlevel\levelnfc0\levelfollow0\levelstartat1{\leveltext \'02\'04.}{\levelnumbers \'01}}{\listlevel\levelnfc0\levelfoll ow0\levelstartat1{\leveltext \'02\'05.}{\levelnumbers \'01}}{\listlevel\levelnfc0\levelfollow0\levelstartat1{\leveltext \'02\'06.}{\levelnumbers \'01}}{\listlevel\levelnfc0\levelfollow0\levelstartat1{\leveltext \'02\'07.}{\levelnumbers \'01}}{\listlevel\levelnfc0\levelfollow0\levelstartat1{\leveltext \ '02\'08.}{\levelnumbers \'01}}{\listname Cmge7369524926_0;}\frmlnt1528886527}{\list\qpoeranbpfvner55{ \listlevel\levelnfc0\levelfollow0\levelstartat1{\leveltext \'02\'00.}{\levelnumbers \'01}}{\listlevel \levelnfc0\levelfollow0\levelstartat1{\leveltext \'02\'01.}{\levelnumbers \'01}}{\listlevel\levelnfc0\levelfollow0\levelstartat1{\leveltext \'02\'02.}{\levelnumbers \'01}}{\listlevel\levelnfc0\levelfoll ow0\levelstartat1{\leveltext \'02\'03.}{\levelnumbers \'01}}{\listlevel\levelnfc0\levelfollow0\levelstartat1{\leveltext \'02\'04.}{\levelnumbers \'01}}{\listlevel\levelnfc0\levelfollow0\levelstartat1{\leveltext \'02\'05.}{\levelnumbers \'01}}{\listlevel\levelnfc0\levelfollow0\levelstartat1{\leveltext \ '02\'06.}{\levelnumbers \'01}}{\listlevel\levelnfc0\levelfollow0\levelstartat1{\leveltext \'02\'07.}{ \levelnumbers \'01}}{\listlevel\levelnfc0\levelfollow0\levelstartat1{\leveltext \'02\'08.}{\levelnumbers \'01}}{\listname [id number];}\[id number]}{\list\odwrcfmcdqyvzu90{\listlevel\levelnfc0 \levelfollow0\levelstartat1{\leveltext \'02\'00.}{\levelnumbers \'01}}{\listlevel\levelnfc0\levelfollow0\levelstartat1{\leveltext \'02\'01.}{\levelnumbers \'01}}{\listlevel\levelnfc0\levelfollow0\levels tartat1{\leveltext \'02\'02.}{\levelnumbers \'01}}{\listlevel\levelnfc0\levelfollow0\levelstartat1{\leveltext \'02\'03.}{\levelnumbers \'01}}{\listlevel\levelnfc0\levelfollow0\levelstartat1{\leveltext \ '02\04.}{\levelnumbers \'01}}{\listlevel\levelnfc0\levelfollow0\levelstartat1{\leveltext \'02\05.}{ \levelnumbers \'01}}{\listlevel\levelnfc0\levelfollow0\levelstartat1{\leveltext \'02\06.}{\levelnumbers \'01}}{\listlevel\levelnfc0\levelfollow0\levelstartat1{\leveltext \'02\07.}{\levelnumbers \'01}} {\listlevel\levelnfc0\levelfollow0\levelstartat1{\leveltext \'02\08.}{\levelnumbers \'01}}{\listname [id number];}\[id number]}{\list\yvtyzqztkwwezl67{\listlevel\levelnfc0 \levelfollow0\levelstartat1{\leveltext \'02\'00.}{\levelnumbers \'01}}{\listlevel\levelnfc0\levelfollow0\levelstartat1{\leveltext \'02\'01.}{\levelnumbers \'01}}{\listlevel\levelnfc0\levelfollow0\levelstartat1{\leveltext \ '02\'02.}{\levelnumbers \'01}}{\listlevel\levelnfc0\levelfollow0\levelstartat1{\leveltext \'02\'03.}{ \levelnumbers \'01}}{\listlevel\levelnfc0\levelfollow0\levelstartat1{\leveltext \'02\04.}{\levelnumbers \'01}}{\listlevel\levelnfc0\levelfollow0\levelstartat1{\leveltext \.}{\levelnumbers \'01}} {\listlevel\levelnfc0\levelfollow0\levelstartat1{\leveltext \'\.}{\levelnumbers \'01}}{\listleve l\levelnfc0\levelfollow0\levelstartat1{\leveltext \'.}{\levelnumbers \'01}}{\listlevel\levelnfc0\levelfollow0\levelstartat1{\leveltext \.}{\levelnumbers \}}{\listname [id number]_5;}\ [id number]}{\list\jpaupgeqosgvem14{\listlevel\levelnfc0\levelfollow0\level startat1{\leveltext \'\'00.}{\levelnumbers \'}}{\listlevel\levelnfc0\levelfollow0\levelstartat1{\leveltext \'\.}{ \levelnumbers \'}}{\listlevel\levelnfc0\levelfollow0\levelstartat1{\leveltext \'\.}{\levelnumbers \'}}{\listlevel\levelnfc0\levelfollow0\levelstartat1{\leveltext \'\03.}{\levelnumbers \'}} {\listlevel\levelnfc0\levelfollow0\levelstartat1{\leveltext \\04.}{\levelnumbers \'01}}{\listleve l\levelnfc0\levelfollow0\levelstartat1{\leveltext \'\05.}{\levelnumbers \'01}}{\listlevel\levelnfc0\levelfollow0\levelstartat1{\leveltext \'02\06.}{\levelnumbers \'01}}{\listlevel\levelnfc0\levelfol low0\levelstartat1{\leveltext \'02\07.}{\levelnumbers \'01}}{\listlevel\levelnfc0\levelfollow0\levelstartat1{\leveltext \'\08.}{\levelnumbers \'01}}{\listname [id number]_1;}\[id number]}{\l ist\tubuyugjskddav77{\listlevel\levelnfc0\levelfollow0\levelstartat1{\leveltext \'02\'00.}{\levelnumbers \'01}}{\listlevel\levelnfc0\levelfollow0\levelstartat1{\leveltext \'\.}{\levelnumbers \'01}} {\listlevel\levelnfc0\levelfollow0\levelstartat1{\leveltext \'02\'02.}{\levelnumbers \'01}}{\listleve l\levelnfc0\levelfollow0\levelstartat1{\leveltext \'02\03.}{\levelnumbers \'01}}{\listlevel\levelnfc0\levelfollow0\levelstartat1{\leveltext \'02\04.}{\levelnumbers \'01}}{\listlevel\levelnfc0\levelfol low0\levelstartat1{\leveltext \'02\'05.}{\levelnumbers \'01}}{\listlevel\levelnfc0\levelfollow0\levelstartat1{\leveltext \'02\06.}{\levelnumbers \'01}}{\listlevel\levelnfc0\levelfollow0\levelstartat1{\leveltext \\'07.}{\levelnumbers \'01}}{\listlevel\levelnfc0\levelfollow0\levelstartat1{\leveltext \'\08.}{\levelnumbers \'01}}{\listname [id number]_1;}\[id number]}{\list\listtemplateid-1 [id number]{\listlevel\weyvsiqj84\levelfollow0\levelstartat1{\leveltext \'\a31493 ?}{\levelnumbers}\f2 }{\listlevel\lfvmbvey91\levelfollow0\levelstartat1{\leveltext \'01o}{\levelnumbers}\f3}{\listlevel\le \levelfollow0\levelstartat1{\leveltext \'\n99136 ?}{\levelnumbers}\f4}{\listlevel\levelnfc2 3\levelfollow0\levelstartat1{\leveltext \'\s13998 ?}{\levelnumbers}\f2}{\listlevel\uxrgtizx68\level follow0\levelstartat1{\leveltext \'01o}{\levelnumbers}\f3}{\listlevel\xamraqkg20\levelfollow0\levelst artat1{\leveltext \'01\t41603 ?}{\levelnumbers}\f4}{\listlevel\uqarfqwe31\levelfollow0\levelstartat1{ \leveltext \'\r90194 ?}{\levelnumbers}\f2}{\listlevel\sptvnsma91\levelfollow0\levelstartat1{\levelt ext \'01o}{\levelnumbers}\f3}{\listlevel\sxqgcyeu40\levelfollow0\levelstartat1{\leve ltext \'01\t07898 ?}{\levelnumbers}\f4}{\listname ;}\hzndgn135636084}{\list\jbrmmeygtesvmz45{\listlevel\levelnfc0\leve lfollow0\levelstartat1{\leveltext \'02\'00.}{\levelnumbers \'01}}{\listlevel\levelnfc0\levelfollow0\levelstartat1{\leveltext \'02\'01.}{\levelnumbers \'01}}{\listlevel\levelnfc0\levelfollow0\levelstarta t1{\leveltext \'02\'02.}{\levelnumbers \'01}}{\listlevel\levelnfc0\levelfollow0\levelstartat1{\leveltext \'02\'03.}{\levelnumbers \'01}}{\listlevel\levelnfc0\levelfollow0\levelstartat1{\leveltext \'02\' 04.}{\levelnumbers \'01}}{\listlevel\levelnfc0\levelfollow0\levelstartat1{\leveltext \'02\'05.}{\levelnumbers \'01}}{\listlevel\levelnfc0\levelfollow0\levelstartat1{\leveltext \'02\'06.}{\levelnumbers \ '01}}{\listlevel\levelnfc0\levelfollow0\levelstartat1{\leveltext \'02\'07.}{\levelnumbers \'01}}{\lis tlevel\levelnfc0\levelfollow0\levelstartat1{\leveltext \'02\'08.}{\levelnumbers \'01}}{\listname List [id number];}\[id number]}{\list\bzkpxwioneimvo95{\listlevel\levelnfc0\lev elfollow0\levelstartat1{\leveltext \'02\'00.}{\levelnumbers \'01}}{\listlevel\levelnfc0\levelfollow0\levelstartat1{\leveltext \'02\'01.}{\levelnumbers \'01}}{\listlevel\levelnfc0\levelfollow0\levelstartat1{\leveltext \'02\' 02.}{\levelnumbers \'01}}{\listlevel\levelnfc0\levelfollow0\levelstartat1{\leveltext \'02\'03.}{\levelnumbers \'01}}{\listlevel\levelnfc0\levelfollow0\levelstartat1{\leveltext \'02\'04.}{\levelnumbers \ '01}}{\listlevel\levelnfc0\levelfollow0\levelstartat1{\leveltext \'02\'05.}{\levelnumbers \'01}}{\lis tlevel\levelnfc0\levelfollow0\levelstartat1{\leveltext \'02\'06.}{\levelnumbers \'01}}{\listlevel\levelnfc0\levelfollow0\levelstartat1{\leveltext \'02\'07.}{\levelnumbers \'01}}{\listlevel\levelnfc0\lev elfollow0\levelstartat1{\leveltext \'02\'08.}{\levelnumbers \'01}}{\listname [id number];}\listi [id number]}{\list\listtemplateid1{\listlevel\levelnfc0\levelfollow0\levelstarta t1{\leveltext \'02\'00.}{\levelnumbers \'01}}{\listlevel\levelnfc0\levelfollow0\levelstartat1{\leveltext \'02\'01.}{\levelnumbers \'01}}{\listlevel\levelnfc0\levelfollow0\levelstartat1{\leveltext \'02\'02.}{\levelnumbers \' 01}}{\listlevel\levelnfc0\levelfollow0\levelstartat1{\leveltext \'02\'03.}{\levelnumbers \'01}}{\list level\levelnfc0\levelfollow0\levelstartat1{\leveltext \'02\'04.}{\levelnumbers \'01}}{\listlevel\levelnfc0\levelfollow0\levelstartat1{\leveltext \'02\'05.}{\levelnumbers \'01}}{\listlevel\levelnfc0\leve lfollow0\levelstartat1{\leveltext \'02\'06.}{\levelnumbers \'01}}{\listlevel\levelnfc0\levelfollow0\levelstartat1{\leveltext \'02\'07.}{\levelnumbers \'01}}{\listlevel\levelnfc0\levelfollow0\levelstarta t1{\leveltext \'02\'08.}{\levelnumbers \'01}}{\listname [id number]_0;}\[id number]}{\list\li eylxnlwqeymd02{\listlevel\levelnfc0\levelfollow0\levelstartat1{\leveltext \'02\'00.}{\levelnumbers \' 01}}{\listlevel\levelnfc0\levelfollow0\levelstartat1{\leveltext \'02\'01.}{\levelnumbers \'01}}{\list level\levelnfc0\levelfollow0\levelstartat1{\leveltext \'02\'02.}{\levelnumbers \'01}}{\listlevel\levelnfc0\levelfollow0\levelstartat1{\leveltext \'02\'03.}{\levelnumbers \'01}}{\listlevel\levelnfc0\leve lfollow0\levelstartat1{\leveltext \'02\04.}{\levelnumbers \'01}}{\listlevel\levelnfc0\levelfollow0\levelstartat1{\leveltext \'02\05.}{\levelnumbers \'01}}{\listlevel\levelnfc0\levelfollow0\levelstarta t1{\leveltext \'02\06.}{\levelnumbers \'01}}{\listlevel\levelnfc0\levelfollow0\levelstartat1{\leveltext \'02\07.}{\levelnumbers \'01}}{\listlevel\levelnfc0\levelfollow0\levelstartat1{\leveltext \'02\ 08.}{\levelnumbers \'01}}{\listname Mmre2330973509_9;}\[id number]}{\list\ykhjuqxlsxdmjb20{\list level\levelnfc0\levelfollow0\levelstartat1{\leveltext \'02\'00.}{\levelnumbers \'01}}{\listlevel\levelnfc0\levelfollow0\levelstartat1{\leveltext \'02\'01.}{\levelnumbers \'01}}{\listlevel\levelnfc0\leve lfollow0\levelstartat1{\leveltext \'02\'02.}{\levelnumbers \'01}}{\listlevel\levelnfc0\levelfollow0\levelstartat1{\leveltext \'02\'03.}{\levelnumbers \'01}}{\listlevel\levelnfc0\levelfollow0\levelstarta t1{\leveltext \'02\'04.}{\levelnumbers \'01}}{\listlevel\levelnfc0\levelfollow0\levelstartat1{\leveltext \'02\'05.}{\levelnumbers \'01}}{\listlevel\levelnfc0\levelfollow0\levelstartat1{\leveltext \'02\' 06.}{\levelnumbers \'01}}{\listlevel\levelnfc0\levelfollow0\levelstartat1{\leveltext \'02\07.}{\levelnumbers \'01}}{\listlevel\levelnfc0\levelfollow0\levelstartat1{\leveltext \'02\08.}{\levelnumbers \'01}}{\listname [id number]_4;}\[id number]}{\list\rohmopqzpcnrhr53{\listlevel\levelnfc0 \levelfollow0\levelstartat1{\leveltext \'02\'00.}{\levelnumbers \'01}}{\listlevel\levelnfc0\levelfollow0\levelstartat1{\leveltext \'02\'.}{\levelnumbers \'01}}{\listlevel\levelnfc0\levelfollow0\levelstarta t1{\leveltext \'02\'02.}{\levelnumbers \'01}}{\listlevel\levelnfc0\levelfollow0\levelstartat1{\leveltext \'02\'03.}{\levelnumbers \'01}}{\listlevel\levelnfc0\levelfollow0\levelstartat1{\leveltext \'02\' 04.}{\levelnumbers \'01}}{\listlevel\levelnfc0\levelfollow0\levelstartat1{\leveltext \'02\'05.}{\levelnumbers \'01}}{\listlevel\levelnfc0\levelfollow0\levelstartat1{\leveltext \'02\'06.}{\levelnumbers \ '01}}{\listlevel\levelnfc0\levelfollow0\levelstartat1{\leveltext \'02\07.}{\levelnumbers \'01}}{\lis tlevel\levelnfc0\levelfollow0\levelstartat1{\leveltext \'02\08.}{\levelnumbers \'01}}{\listname List [id number];}\[id number]}{\list\docqhmzzpfbiap89{\listlevel\levelnfc0\lev elfollow0\levelstartat1{\leveltext \'02\'00.}{\levelnumbers \'01}}{\listlevel\levelnfc0\levelfollow0\levelstartat1{\leveltext \'02\.}{\levelnumbers \'01}}{\listlevel\levelnfc0\levelfollow0\levelstartat1{\leveltext \'02\ 02.}{\levelnumbers \'01}}{\listlevel\levelnfc0\levelfollow0\levelstartat1{\leveltext \'02\'03.}{\levelnumbers \'01}}{\listlevel\levelnfc0\levelfollow0\levelstartat1{\leveltext \'02\04.}{\levelnumbers \ '01}}{\listlevel\levelnfc0\levelfollow0\levelstartat1{\leveltext \'02\'05.}{\levelnumbers \'01}}{\lis tlevel\levelnfc0\levelfollow0\levelstartat1{\leveltext \'02\'06.}{\levelnumbers \'01}}{\listlevel\levelnfc0\levelfollow0\levelstartat1{\leveltext \'02\07.}{\levelnumbers \'01}}{\listlevel\levelnfc0\lev elfollow0\levelstartat1{\leveltext \'02\08.}{\levelnumbers \'01}}{\listname Plhv6634326888_2;}\listi [phone]}{\list\fmblwebvjouyld75{\listlevel\levelnfc0\levelfollow0\levelstart at1{\leveltext \'02\'00.}{\levelnumbers \'01}}{\listlevel\levelnfc0\levelfollow0\levelstartat1{\leveltext \'02\'01.}{\levelnumbers \'01}}{\listlevel\levelnfc0\levelfollow0\levelstartat1{\leveltext \'02\'02.}{\levelnumbers \ '01}}{\listlevel\levelnfc0\levelfollow0\levelstartat1{\leveltext \'02\'03.}{\levelnumbers \'01}}{\lis tlevel\levelnfc0\levelfollow0\levelstartat1{\leveltext \'02\'04.}{\levelnumbers \'01}}{\listlevel\levelnfc0\levelfollow0\levelstartat1{\leveltext \'02\'05.}{\levelnumbers \'01}}{\listlevel\levelnfc0\lev elfollow0\levelstartat1{\leveltext \'02\'06.}{\levelnumbers \'01}}{\listlevel\levelnfc0\levelfollow0\levelstartat1{\leveltext \'02\'07.}{\levelnumbers \'01}}{\listlevel\levelnfc0\levelfollow0\levelstart at1{\leveltext \'02\'08.}{\levelnumbers \'01}}{\listname [id number];}\[id number]}{\list\l zjyvqddwgavee27{\listlevel\levelnfc0\levelfollow0\levelstartat1{\leveltext \'02\'00.}{\levelnumbers \ '01}}{\listlevel\levelnfc0\levelfollow0\levelstartat1{\leveltext \'02\'.}{\levelnumbers \'01}}{\lis tlevel\levelnfc0\levelfollow0\levelstartat1{\leveltext \'02\'02.}{\levelnumbers \'01}}{\listlevel\levelnfc0\levelfollow0\levelstartat1{\leveltext \'02\'03.}{\levelnumbers \'01}}{\listlevel\levelnfc0\lev elfollow0\levelstartat1{\leveltext \'02\04.}{\levelnumbers \'}}{\listlevel\levelnfc0\levelfollow0\levelstartat1{\leveltext \'02\'05.}{\levelnumbers \'}}{\listlevel\levelnfc0\levelfollow0\levelstart at1{\leveltext \'02\'06.}{\levelnumbers \'01}}{\listlevel\levelnfc0\levelfollow0\levelstartat1{\leveltext \'02\'07.}{\levelnumbers \'01}}{\listlevel\levelnfc0\levelfollow0\levelstartat1{\leveltext \'02\ '08.}{\levelnumbers \'01}}{\listname [id number]_1;}\[id number]}{\list\qiswxwymhkdihm45{\lis tlevel\levelnfc0\levelfollow0\levelstartat1{\leveltext \'02\'00.}{\levelnumbers \'01}}{\listlevel\levelnfc0\levelfollow0\levelstartat1{\leveltext \'02\'.}{\levelnumbers \'01}}{\listlevel\levelnfc0\lev elfollow0\levelstartat1{\leveltext \'02\'02.}{\levelnumbers \'01}}{\listlevel\levelnfc0\levelfollow0\levelstartat1{\leveltext \'02\03.}{\levelnumbers \'01}}{\listlevel\levelnfc0\levelfollow0\levelstart at1{\leveltext \'02\04.}{\levelnumbers \'01}}{\listlevel\levelnfc0\levelfollow0\levelstartat1{\leveltext \'02\05.}{\levelnumbers \'01}}{\listlevel\levelnfc0\levelfollow0\levelstartat1{\leveltext \'02\ 06.}{\levelnumbers \'01}}{\listlevel\levelnfc0\levelfollow0\levelstartat1{\leveltext \'02\07.}{\levelnumbers \'01}}{\listlevel\levelnfc0\levelfollow0\levelstartat1{\leveltext \'02\08.}{\levelnumbers\'01}}{\listname [id number];}\[id number]}{\list\ohzxbznmoaevnp77{\listlevel\levelnfc0 \levelfollow0\levelstartat1{\leveltext \'02\'00.}{\levelnumbers \'01}}{\listlevel\levelnfc0\levelfollow0\levelstartat1{\leveltext \'02\'01.}{\levelnumbers \'01}}{\listlevel\levelnfc0\levelfollow0\levelstart at1{\leveltext \'02\'02.}{\levelnumbers \'01}}{\listlevel\levelnfc0\levelfollow0\levelstartat1{\leveltext \'02\03.}{\levelnumbers \'01}}{\listlevel\levelnfc0\levelfollow0\levelstartat1{\leveltext \'02\ '04.}{\levelnumbers \'01}}{\listlevel\levelnfc0\levelfollow0\levelstartat1{\leveltext \'02\'05.}{\levelnumbers \'01}}{\listlevel\levelnfc0\levelfollow0\levelstartat1{\leveltext \'02\'06.}{\levelnumbers \'01}}{\listlevel\levelnfc0\levelfollow0\levelstartat1{\leveltext \'02\07.}{\levelnumbers \'01}}{\li stlevel\levelnfc0\levelfollow0\levelstartat1{\leveltext \'02\'08.}{\levelnumbers \'01}}{\listname Lis [id number];}\[id number]}{\list\obikzjdnskkoyp67{\listlevel\levelnfc0\le velfollow0\levelstartat1{\leveltext \'02\'00.}{\levelnumbers \'01}}{\listlevel\levelnfc0\levelfollow0\levelstartat1{\leveltext \'02\'01.}{\levelnumbers \'01}}{\listlevel\levelnfc0\levelfollow0\levelstartat1{\leveltext \'02\ '02.}{\levelnumbers \'01}}{\listlevel\levelnfc0\levelfollow0\levelstartat1{\leveltext \'02\'03.}{\levelnumbers \'01}}{\listlevel\levelnfc0\levelfollow0\levelstartat1{\leveltext \'02\'04.}{\levelnumbers \'01}}{\listlevel\levelnfc0\levelfollow0\levelstartat1{\leveltext \'02\05.}{\levelnumbers \'01}}{\li stlevel\levelnfc0\levelfollow0\levelstartat1{\leveltext \'02\06.}{\levelnumbers \'01}}{\listlevel\levelnfc0\levelfollow0\levelstartat1{\leveltext \'02\07.}{\levelnumbers \'01}}{\listlevel\levelnfc0\le velfollow0\levelstartat1{\leveltext \'02\08.}{\levelnumbers \'01}}{\listname [id number];}\list [id number]}{\list\vajqupuuovdmcf98{\listlevel\levelnfc0\levelfollow0\levelstar tat1{\leveltext \'02\'00.}{\levelnumbers \'01}}{\listlevel\levelnfc0\levelfollow0\levelstartat1{\leveltext \'02\'.}{\levelnumbers \'01}}{\listlevel\levelnfc0\levelfollow0\levelstartat1{\leveltext \'02\'02.}{\levelnumbers \'01}}{\listlevel\levelnfc0\levelfollow0\levelstartat1{\leveltext \'02\'03.}{\levelnumbers \'01}}{\li stlevel\levelnfc0\levelfollow0\levelstartat1{\leveltext \'02\'04.}{\levelnumbers \'01}}{\listlevel\levelnfc0\levelfollow0\levelstartat1{\leveltext \'02\05.}{\levelnumbers \'01}}{\listlevel\levelnfc0\le velfollow0\levelstartat1{\leveltext \'02\06.}{\levelnumbers \'01}}{\listlevel\levelnfc0\levelfollow0\levelstartat1{\leveltext \'02\'07.}{\levelnumbers \'01}}{\listlevel\levelnfc0\levelfollow0\levelstar tat1{\leveltext \'02\08.}{\levelnumbers \'01}}{\listname [id number];}\qmkvjn7514994720}{\list\ listtemplateid2{\listlevel\levelnfc0\levelfollow0\levelstartat1{\leveltext \'02\'00.}{\levelnumbers \ '01}\fcs1\f5\af5\fcs0\rtlch\f5\af5\ltrch\fs22}{\listlevel\levelnfc0\levelfollow0 \levelstartat1{\leveltext \'02\.}{\levelnumbers \'01}\fcs1\f5\af5\fcs0\rtlch\f5\af5\ltrch\fs22}{\listlevel\levelnfc0\le velfollow0\levelstartat1{\leveltext \'02\'02.}{\levelnumbers \'01}\fcs1\f5\af5\fcs0\rtlch\f5\af5\ltrc h\fs22}{\listlevel\levelnfc0\levelfollow0\levelstartat1{\leveltext \'02\'03.}{\levelnumbers \'01}\fcs 1\f5\af5\fcs0\rtlch\f5\af5\ltrch\fs22}{\listlevel\levelnfc0\levelfollow0\levelst artat1{\leveltext \'02\'04.}{\levelnumbers \'01}\fcs1\f5\af5\fcs0\rtlch\f5\af5\ltrch\fs22}{\listlevel\levelnfc0\levelfollo w0\levelstartat1{\leveltext \'02\'05.}{\levelnumbers \'01}\fcs1\f5\af5\fcs0\rtlch\f5\af5\ltrch\fs22}{ \listlevel\levelnfc0\levelfollow0\levelstartat1{\leveltext \'02\'06.}{\levelnumbers \'01}\fcs1\f5\af5 \fcs0\rtlch\f5\af5\ltrch\fs22}{\listlevel\levelnfc0\levelfollow0\levelstartat1{\ leveltext \'02\'07.}{\levelnumbers \'01}\fcs1\f5\af5\fcs0\rtlch\f5\af5\ltrch\fs22}{\listlevel\levelnfc0\levelfollow 0\levelstartat1{\leveltext \'02\'08.}{\levelnumbers \'01}\fcs1\f5\af5\fcs0\rtlch\f5\af5\ltrch\fs22}{\listname Zazl1374219869_1;}\[id number]}{\list\listtemplateid3{\listlevel\levelnfc0\ levelfollow0\levelstartat1{\leveltext \'02\'00.}{\levelnumbers \'01}\f6\fcs1\f6\af6\fcs0\rtlch\f6\af6\ltrch\fs16}{\listl evel\levelnfc0\levelfollow0\levelstartat1{\leveltext \'02\'01.}{\levelnumbers \'01}\fcs1\f5\af5\fcs0\ rtlch\f5\af5\ltrch\fs22}{\listlevel\levelnfc0\levelfollow0\levelstartat1{\levelt ext \'02\'02.}{\levelnumbers \'01}\fcs1\f5\af5\fcs0\rtlch\f5\af5\ltrch\fs22}{\listlevel\levelnfc0\levelfollow 0\levelstartat1{\leveltext \'02\'03.}{\levelnumbers \'01}\fcs1\f5\af5\fcs0\rtlch\f5\af5\ltrch\fs22}{\listlevel\lev elnfc0\levelfollow0\levelstartat1{\leveltext \'02\'04.}{\levelnumbers \'01}\fcs1\f5\af5\fcs0\rtlch\f5 \af5\ltrch\fs22}{\listlevel\levelnfc0\levelfollow0\levelstartat1{\leveltext \'02\'05.}{\levelnumbers \'01}\fcs1\f5\af5\fcs0\rtlch\f5\af5\ltrch\fs22}{\listlevel\levelnfc0\levelfollow 0\levelstartat1{\leveltext \'02\'06.}{\levelnumbers \'01}\fcs1\f5\af5\fcs0\rtlch\f5\af5\ltrch\fs22}{\listlevel\levelnfc0\l evelfollow0\levelstartat1{\leveltext \'02\'07.}{\levelnumbers \'01}\fcs1\f5\af5\fcs0\rtlch\f5\af5\ltr ch\fs22}{\listlevel\levelnfc0\levelfollow0\levelstartat1{\leveltext \'02\'08.}{\levelnumbers \'01}\fc s1\f5\af5\fcs0\rtlch\f5\af5\ltrch\fs22}{\listname [id number]_7;}\[id number]}{\list\listtemp lateid4{\listlevel\levelnfc0\levelfollow0\levelstartat1{\leveltext \'02\'00.}{\levelnumbers \'01}\f6\ fcs1\f6\af6\fcs0\rtlch\f6\af6\ltrch\fs16}{\listlevel\levelnfc0\levelfollow0\leve lstartat1{\leveltext\'02\'01.}{\levelnumbers \'01}\fcs1\f5\af5\fcs0\rtlch\f5\af5\ltrch\fs22}{\listlevel\levelnfc0\levelfo llow0\levelstartat1{\leveltext \'02\'02.}{\levelnumbers \'01}\fcs1\f5\af5\fcs0\rtlch\f5\af5\ltrch\fs2 2}{\listlevel\levelnfc0\levelfollow0\levelstartat1{\leveltext \'\03.}{\levelnumbers \'01}\fcs1\f5\ af5\fcs0\rtlch\f5\af5\ltrch\fs22}{\listlevel\levelnfc0\levelfollow0\levelstartat 1{\leveltext \'02\04.}{\levelnumbers \'01}\fcs1\f5\af5\fcs0\rtlch\f5\af5\ltrch\fs22}{\listlevel\levelnfc0\levelfollow 0\levelstartat1{\leveltext \'02\05.}{\levelnumbers \'01}\fcs1\f5\af5\fcs0\rtlch\f5\af5\ltrch\fs22}{\list level\levelnfc0\levelfollow0\levelstartat1{\leveltext \'02\06.}{\levelnumbers \'01}\fcs1\f5\af5\fcs0 \rtlch\f5\af5\ltrch\fs22}{\listlevel\levelnfc0\levelfollow0\levelstartat1{\level text \'02\'07.}{\levelnumbers \'01}\fcs1\f5\af5\fcs0\rtlch\f5\af5\ltrch\fs22}{\listlevel\levelnfc0\levelfollow 0\levelstartat1{\leveltext \'02\'08.}{\levelnumbers \'01}\fcs1\f5\af5\fcs0\rtlch\f5\af5\ltrch\fs22}{\listname Lis [id number];}\mwegoi2876080149}{\list\listtemplateid5{\listlevel\levelnfc0\lev elfollow0\levelstartat1{\leveltext \'02\'00.}{\levelnumbers \'01}\f6\fcs1\f6\af6\fcs0\rtlch\f6\af6\ltrch\fs16}{\listlevel\ levelnfc0\levelfollow0\levelstartat1{\leveltext \'02\'01.}{\levelnumbers \'01}\fcs1\f5\af5\fcs0\rtlch \f5\af5\ltrch\fs22}{\listlevel\levelnfc0\levelfollow0\levelstartat1{\leveltext \'02\'02.}{\levelnumbers \'01}\fcs1\f5\af5\fcs0\rtlch\f5\af5\ltrch\fs22}{\listlevel\levelnfc0\levelfollow 0\levelstartat1{\leveltext \'02\'03.}{\levelnumbers \'01}\fcs1\f5\af5\fcs0\rtlch\f5\af5\ltrch\fs22}{\listlevel\levelnfc 0\levelfollow0\levelstartat1{\leveltext \'02\'04.}{\levelnumbers \'01}\fcs1\f5\af5\fcs0\rtlch\f5\af5\ ltrch\fs22}{\listlevel\levelnfc0\levelfollow0\levelstartat1{\leveltext \'02\'05.}{\levelnumbers \'01} \fcs1\f5\af5\fcs0\rtlch\f5\af5\ltrch\fs22}{\listlevel\levelnfc0\levelfollow0\lev elstartat1{\leveltext \'02\06.}{\levelnumbers \'01}\fcs1\f5\af5\fcs0\rtlch\f5\af5\ltrch\fs22}{\listlevel\levelnfc0\levelf ollow0\levelstartat1{\leveltext \'02\07.}{\levelnumbers \'01}\fcs1\f5\af5\fcs0\rtlch\f5\af5\ltrch\fs 22}{\listlevel\levelnfc0\levelfollow0\levelstartat1{\leveltext \'02\08.}{\levelnumbers \'01}\fcs1\f5 \af5\fcs0\rtlch\f5\af5\ltrch\fs22}{\listname Wfma1279739760_8;}\cbmgbc4314210715}{\list\listtemplatei d8{\listlevel\levelnfc0\levelfollow0\levelstartat1{\leveltext \'02\'00.}{\levelnumbers \'01}\fcs1\f5\ af5\fcs0\rtlch\f5\af5\ltrch\fs22}{\listlevel\levelnfc0\levelfollow0\levelstartat 1{\leveltext \'02\'01.}{\levelnumbers \'01}\fcs1\f5\af5\fcs0\rtlch\f5\af5\ltrch\fs22}{\listlevel\levelnfc0\levelfollow 0\levelstartat1{\leveltext \'02\02.}{\levelnumbers \'01}\fcs1\f5\af5\fcs0\rtlch\f5\af5\ltrch\fs22}{\list level\levelnfc0\levelfollow0\levelstartat1{\leveltext \'02\'03.}{\levelnumbers \'01}\fcs1\f5\af5\fcs0 \rtlch\f5\af5\ltrch\fs22}{\listlevel\levelnfc0\levelfollow0\levelstartat1{\level text \'02\'04.}{\levelnumbers \'01}\fcs1\f5\af5\fcs0\rtlch\f5\af5\ltrch\fs22}{\listlevel\levelnfc0\levelfollow 0\levelstartat1{\leveltext \'02\'05.}{\levelnumbers \'01}\fcs1\f5\af5\fcs0\rtlch\f5\af5\ltrch\fs22}{\listlevel\le velnfc0\levelfollow0\levelstartat1{\leveltext \'02\'06.}{\levelnumbers \'01}\fcs1\f5\af5\fcs0\rtlch\f 5\af5\ltrch\fs22}{\listlevel\levelnfc0\levelfollow0\levelstartat1{\leveltext \'02\'07.}{\levelnumbers \'01}\fcs1\f5\af5\fcs0\rtlch\f5\af5\ltrch\fs22}{\listlevel\levelnfc0\levelfollow 0\levelstartat1{\leveltext \'02\'08.}{\levelnumbers \'01}\fcs1\f5\af5\fcs0\rtlch\f5\af5\ltrch\fs22}{\listname Gfzu3109586 916_1;}\wuacif8255789941}{\list\listtemplateid9{\listlevel\levelnfc0\levelfollow 0\levelstartat1{\leveltext \'02\'00.}{\levelnumbers \'01}}{\listlevel\levelnfc0\levelfollow0\levelstartat1{\leveltext \'02 \'01.}{\levelnumbers \'01}}{\listlevel\levelnfc0\levelfollow0\levelstartat1{\leveltext \'02\'02.}{\le velnumbers \'01}}{\listlevel\levelnfc0\levelfollow0\levelstartat1{\leveltext \'02\'0 3.}{\levelnumbers \'01}}{\listlevel\levelnfc0\levelfollow0\levelstartat1{\leveltext \'02\'04.}{\levelnumbers \'01}}{\listlevel\levelnfc0\levelfollow0\levelstartat1{\leveltext \'02\'05.}{\levelnumbers \' 01}}{\listlevel\levelnfc0\levelfollow0\levelstartat1{\leveltext \'02\'06.}{\levelnumbers \'01}}{\list level\levelnfc0\levelfollow0\levelstartat1{\leveltext \'02\'07.}{\levelnumbers \'01}}{\listlevel\levelnfc0\levelfollow0\levelstartat1{\leveltext \'02\'08.}{\levelnumbers \'01}}{\listname Bydb1318435578_ 1;}\[id number]}{\list\hccypadxvcctia56{\listlevel\levelnfc0\levelfollow0\l evelstartat1{\leveltext \'02\'00.}{\levelnumbers \'01}}{\listlevel\levelnfc0\levelfollow0\levelstartat1{\leveltext \'02\'0 1.}{\levelnumbers \'01}}{\listlevel\levelnfc0\levelfollow0\levelstartat1{\leveltext \'02\'02.}{\levelnumbers \'01}}{\listlevel\levelnfc0\levelfollow0\levelstartat1{\leveltext \'02\03.}{\levelnumbers \' 01}}{\listlevel\levelnfc0\levelfollow0\levelstartat1{\leveltext \'02\'04.}{\levelnumbers \'01}}{\list level\levelnfc0\levelfollow0\levelstartat1{\leveltext \'02\05.}{\levelnumbers \'}}{\listlevel\levelnfc0\levelfollow0\levelstartat1{\leveltext \'02\'06.}{\levelnumbers \'01}}{\listlevel\levelnfc0\leve lfollow0\levelstartat1{\leveltext \'02\07.}{\levelnumbers \'01}}{\listlevel\levelnfc0\levelfollow0\levelstartat1{\leveltext \'02\08.}{\levelnumbers \'01}}{\listname Aafw1185384348_8;}\[id number] }{\list\qmwthxmeopxrjo39{\listlevel\levelnfc0\levelfollow0\levelstartat1{\levelt ext \'02\'00.}{\levelnumbers \'01}}{\listlevel\levelnfc0\levelfollow0\levelstartat1{\leveltext \'02\'.}{\levelnumbers \' 01}}{\listlevel\levelnfc0\levelfollow0\levelstartat1{\leveltext \'02\'02.}{\levelnumbers \'01}}{\list level\levelnfc0\levelfollow0\levelstartat1{\leveltext \'02\03.}{\levelnumbers \'01}}{\listlevel\levelnfc0\levelfollow0\levelstartat1{\leveltext \'02\04.}{\levelnumbers \'01}}{\listlevel\levelnfc0\leve lfollow0\levelstartat1{\leveltext \'02\05.}{\levelnumbers \'01}}{\listlevel\levelnfc0\levelfollow0\levelstartat1{\leveltext \'02\06.}{\levelnumbers \'01}}{\listlevel\levelnfc0\levelfollow0\levelstarta t1{\leveltext \'\07.}{\levelnumbers \'01}}{\listlevel\levelnfc0\levelfollow0\levelstartat1{\leveltext \'\08.}{\levelnumbers \'01}}{\listname [id number]_1;}\noverr8775658417}{\list\listtemplate [id number]{\listlevel\oifhmkqt22\levelfollow0\levelstartat0{\leveltext \'01\i19157 ?}{\levelnumbers }\f2\fcs1\f2\af2\fcs0}{\listlevel\\levelfollow0\levelstartat1{\levelte xt \'01o}{\levelnumbe rs}\f3}{\listlevel\uorhmprb42\levelfollow0\levelstartat1{\leveltext \'01\g47580 ?}{\levelnumbers}\f4} {\listlevel\nszxacpk03\levelfollow0\levelstartat1{\leveltext \'01\t17648 ?}{\levelnumbers}\f2}{\listl evel\xnbjopxz87\levelfollow0\levelstartat1{\leveltext \'01o}{\levelnumbers}\f3}{\listlevel\ihqccihv87 \levelfollow0\levelstartat1{\leveltext \'01\q11881 ?}{\levelnumbers}\f4}{\listlevel\ivyiqwcy89\levelf ollow0\levelstartat1{\leveltext \'01\w74482 ?}{\levelnumbers}\f2}{\listlevel\rbtyobgl17\levelfollow0\ levelstartat1{\leveltext \'01o}{\levelnumbers}\f3}{\listlevel\skrntnbo13\levelfollow0\levelstartat1{\ leveltext \'\c48379 ?}{\levelnumbers}\f4}{\listname ;}\[id number]}{\list\bflclpsdihqscv848845 0949{\listlevel\levelnfc0\levelfollow0\levelstartat1{\leveltext \'02\'00.}{\levelnumbers \'01}}{\list level\levelnfc0\levelfollow0\levelstartat1{\leveltext \'02\'01.}{\levelnumbers \'01}}{\listlevel\levelnfc0\levelfollow0\levelstartat1{\leveltext \'02\'02.}{\levelnumbers \'01}}{\listlevel\levelnfc0\leve lfollow0\levelstartat1{\leveltext \'02\'03.}{\levelnumbers \'01}}{\listlevel\levelnfc0\levelfollow0\levelstartat1{\leveltext \'02\'04.}{\levelnumbers \'01}}{\listlevel\levelnfc0\levelfollow0\levelstarta t1{\leveltext \'02\'05.}{\levelnumbers \'01}}{\listlevel\levelnfc0\levelfollow0\levelstartat1{\leveltext \'02\06.}{\levelnumbers \'01}}{\listlevel\levelnfc0\levelfollow0\levelstartat1{\leveltext \'02\ 07.}{\levelnumbers \'01}}{\listlevel\levelnfc0\levelfollow0\levelstartat1{\leveltext \'02\08.}{\levelnumbers \'01}}{\listname [id number]_5;}\datqms8601417573}{\list\lvpeaknbtxxvvc3219926500{\listle gilma\levelnfc0\levelfollow0\levelstartat1{\leveltext \'02\'00.}{\levelnumbers \'01}}{\listlevel\levelnfc0\levelfollow0\levelstartat1{\leveltext \'\.}{\levelnumbers \'01}}{\listlevel\levelnfc0\levelf ollow0\levelstartat1{\leveltext \'02\'02.}{\levelnumbers \'01}}{\listlevel\levelnfc0\levelfollow0\levelstartat1{\leveltext \'02\03.}{\levelnumbers \'01}}{\listlevel\levelnfc0\levelfollow0\levelstartat1 {\leveltext \'02\04.}{\levelnumbers \'01}}{\listlevel\levelnfc0\levelfollow0\levelstartat1{\leveltext \'02\'05.}{\levelnumbers \'01}}{\listlevel\levelnfc0\levelfollow0\levelstartat1{\leveltext \'02\'06 .}{\levelnumbers \'01}}{\listlevel\levelnfc0\levelfollow0\levelstartat1{\leveltext \'\07.}{\levelnumbers \'01}}{\listlevel\levelnfc0\levelfollow0\levelstartat1{\leveltext \'02\'08.}{\levelnumbers \'01}}{\listname [id number]_6;}\shicck1569799509}{\list\hgenhdubvnswix2579990244{\listlevel\l evelnfc0\levelfollow0\levelstartat1{\leveltext \'02\'00.}{\levelnumbers \'01}}{\listlevel\levelnfc0\levelfollow0\levelstartat1{\leveltext \'02\'01.}{\levelnumbers \'01}}{\listlevel\levelnfc0\levelfollow0\level startat1{\leveltext \'02\'02.}{\levelnumbers \'01}}{\listlevel\levelnfc0\levelfollow0\levelstartat1{\leveltext \'02\'03.}{\levelnumbers \'01}}{\listlevel\levelnfc0\levelfollow0\levelstartat1{\leveltext \'02\'04.}{\levelnumbers \'01}}{\listlevel\levelnfc0\levelfollow0\levelstartat1{\leveltext \'02\'05.} {\levelnumbers \'01}}{\listlevel\levelnfc0\levelfollow0\levelstartat1{\leveltext \'02\'06.}{\levelnumbers \'01}}{\listlevel\levelnfc0\levelfollow0\levelstartat1{\leveltext \'02\'07.}{\levelnumbers \'01} }{\listlevel\levelnfc0\levelfollow0\levelstartat1{\leveltext \'02\'08.}{\levelnumbers \'01}}{\listname Dsho3284441002_0;}\jigylz3475669148}{\list\wladlotpvqkqty4341685981{\listlevel\l evelnfc0\levelfollow0\levelstartat1{\leveltext \'02\'00.}{\levelnumbers \'01}}{\listlevel\levelnfc0\levelfollow0\levelstartat1{\leveltext \'02\'01.}{\levelnumbers \'01}}{\listlevel\levelnfc0\levelfollow0\levelstartat1{\leveltext \'02\'02.}{\levelnumbers \'01}}{\listlevel\levelnfc0\levelfollow0\levelstartat1{\leveltext \' 02\'03.}{\levelnumbers \'01}}{\listlevel\levelnfc0\levelfollow0\levelstartat1{\leveltext \'02\'04.}{\ levelnumbers \'01}}{\listlevel\levelnfc0\levelfollow0\levelstartat1{\leveltext \'02\'05.}{\levelnumbers \'01}}{\listlevel\levelnfc0\levelfollow0\levelstartat1{\leveltext \'02\'06.}{\levelnumbers \'01}}{ \listlevel\levelnfc0\levelfollow0\levelstartat1{\leveltext \'02\'07.}{\levelnumbers \'01}}{\listlevel \levelnfc0\levelfollow0\levelstartat1{\leveltext \'02\'08.}{\levelnumbers \'01}}{\listname Fdaw316636 3275_1;}\[id number]}{\list\[id number]{\listlevel\levelnfc0\l evelfollow0\levelstartat1{\leveltext \'02\'00.}{\levelnumbers \'01}}{\listlevel\levelnfc0\levelfollow0\levelstartat1{\leveltext \'02\'01.}{\levelnumbers \'01}}{\listlevel\levelnfc0\levelfollow0\levelstartat1{\leveltext \'02 \'02.}{\levelnumbers \'01}}{\listlevel\levelnfc0\levelfollow0\levelstartat1{\leveltext \'02\'03.}{\le velnumbers \'}}{\listlevel\levelnfc0\levelfollow0\levelstartat1{\leveltext \'02\'04.}{\levelnumbers \'}}{\listlevel\levelnfc0\levelfollow0\levelstartat1{\leveltext \'02\'05.}{\levelnumbers \'}}{\l istlevel\levelnfc0\levelfollow0\levelstartat1{\leveltext \'02\'06.}{\levelnumbers \'}}{\listlevel\l evelnfc0\levelfollow0\levelstartat1{\leveltext \'02\'07.}{\levelnumbers \'}}{\listlevel\levelnfc0\levelfollow0\levelstartat1{\leveltext \'02\'08.}{\levelnumbers \'}}{\listname [id number]_7;}\lis bly5189325521}{\list\[id number]{\listlevel\levelnfc0\levelfollow0\ levelstartat1{\leveltext \'02\'00.}{\levelnumbers \'01}}{\listlevel\levelnfc0\levelfollow0\levelstartat1{\leveltext \'02\' 01.}{\levelnumbers \'01}}{\listlevel\levelnfc0\levelfollow0\levelstartat1{\leveltext \'02\02.}{\levelnumbers \'01}}{\listlevel\levelnfc0\levelfollow0\levelstartat1{\leveltext \'02\03.}{\levelnumbers \ '01}}{\listlevel\levelnfc0\levelfollow0\levelstartat1{\leveltext \'02\04.}{\levelnumbers \'01}}{\lis tlevel\levelnfc0\levelfollow0\levelstartat1{\leveltext \'02\05.}{\levelnumbers \'01}}{\listlevel\levelnfc0\levelfollow0\levelstartat1{\leveltext \'02\06.}{\levelnumbers \'01}}{\listlevel\levelnfc0\lev elfollow0\levelstartat1{\leveltext \'\07.}{\levelnumbers \'01}}{\listlevel\levelnfc0\levelfollow0\levelstartat1{\leveltext \'02\08.}{\levelnumbers \'01}}{\listname Wrsw8952700515_2;}\[id number] 6}{\list\jzerfsnxljiyar0319060483{\listlevel\levelnfc0\levelfollow0\levelstartat 1{\leveltext \'02\'00.}{\levelnumbers \'01}}{\listlevel\levelnfc0\levelfollow0\levelstartat1{\leveltext \'02\'01.}{\levelnumbers \'01}}{\listlevel\levelnfc0\levelfollow0\levelstartat1{\leveltext \'02\'02.}{\levelnumbers \'0 1}}{\listlevel\levelnfc0\levelfollow0\levelstartat1{\leveltext \'02\03.}{\levelnumbers \'01}}{\listl evel\levelnfc0\levelfollow0\levelstartat1{\leveltext \'02\'04.}{\levelnumbers \'01}}{\listlevel\levelnfc0\levelfollow0\levelstartat1{\leveltext \'02\'05.}{\levelnumbers \'01}}{\listlevel\levelnfc0\level follow0\levelstartat1{\leveltext \'02\'06.}{\levelnumbers \'01}}{\listlevel\levelnfc0\levelfollow0\levelstartat1{\leveltext \'02\'07.}{\levelnumbers \'01}}{\listlevel\levelnfc0\levelfollow0\levelstartat 1{\leveltext \'02\'08.}{\levelnumbers \'}}{\listname [id number]_8;}\[id number]}{\list\listtemplateid- [id number]{\listlevel\ylxshqyz01\levelfollow0\levelstartat0{\leveltext \'01\v98382 ?}{\le velnumbers}\f2\fcs1\f2\af2\fcs0}{\listlevel\gfrguzkt55\levelfollow0\levelstartat 1{\leveltext \'01o}{\ levelnumbers}\f3}{\listlevel\ktlaroqb01\levelfollow0\levelstartat1{\leveltext \'01\h67479 ?}{\levelnu mbers}\f4}{\listlevel\\levelfollow0\levelstartat1{\leveltext \'01\w79833 ?}{\levelnumbers}\ f2}{\listlevel\zlrmbari10\levelfollow0\levelstartat1{\leveltext \'01o}{\levelnumbers}\f3}{\listlevel\ wahqlrqc60\levelfollow0\levelstartat1{\leveltext \'01\j19847 ?}{\levelnumbers}\f4}{\listlevel\levelnf c23\levelfollow0\levelstartat1{\leveltext \'\n72820 ?}{\levelnumbers}\f2}{\listlevel\lknmjefx80\lev elfollow0\levelstartat1{\leveltext \'01o}{\levelnumbers}\f3}{\listlevel\yytdyext90\levelfollow0\level startat1{\leveltext \'\j32207 ?}{\levelnumbers}\f4}{\listname ;}\[id number]}{\list\listtemplateid- [id number]{\listlevel\mybjbcvh58\levelfollow0\levelstartat0{\leveltext \'\t58932 ?}{\levelnumb ers}\f2\fcs1\f2\af2\fcs0}{\listlevel\\levelfollow0\levelstartat1{\leve ltext \'01o}{\levelnu mbers}\f3}{\listlevel\mqaclekf85\levelfollow0\levelstartat1{\leveltext \'\y91023 ?}{\levelnumbers}\ f4}{\listlevel\yifvzfhd29\levelfollow0\levelstartat1{\leveltext \'\w25696 ?}{\levelnumbers}\f2}{\li stlevel\ztzbijwk49\levelfollow0\levelstartat1{\leveltext \'01o}{\levelnumbers}\f3}{\listlevel\levelnf c23\levelfollow0\levelstartat1{\leveltext \'\z79120 ?}{\levelnumbers}\f4}{\listlevel\hbtvecdb63\lev elfollow0\levelstartat1{\leveltext \'01\b24760 ?}{\levelnumbers}\f2}{\listlevel\cbdkorze15\levelfollo w0\levelstartat1{\leveltext \'01o}{\levelnumbers}\f3}{\listlevel\ywcbkhjz39\levelfollow0\levelstartat 1{\leveltext \'01\i39908 ?}{\levelnumbers}\f4}{\listname ;}\[id number]}{\list\uwykimskgsauyl47{ \listlevel\levelnfc0\levelfollow0\levelstartat1{\leveltext \'02\'00.}{\levelnumbers \'01}}{\listlevel \levelnfc0\levelfollow0\levelstartat1{\leveltext \'02\'01.}{\levelnumbers \'01}}{\listlevel\levelnfc0\levelfollow0\levelstartat1{\leveltext \'02\'02.}{\levelnumbers \'01}}{\listlevel\levelnfc0\levelfoll ow0\levelstartat1{\leveltext \'02\'03.}{\levelnumbers \'01}}{\listlevel\levelnfc0\levelfollow0\levelstartat1{\leveltext \'02\'04.}{\levelnumbers \'01}}{\listlevel\levelnfc0\levelfollow0\levelstartat1{\leveltext \'02\'05.}{\levelnumbers \'01}}{\listlevel\levelnfc0\levelfollow0\levelstartat1{\leveltext \ '02\'06.}{\levelnumbers \'01}}{\listlevel\levelnfc0\levelfollow0\levelstartat1{\leveltext \'02\'07.}{ \levelnumbers \'01}}{\listlevel\levelnfc0\levelfollow0\levelstartat1{\leveltext \'02\'08.}{\levelnumbers \'01}}{\listname Zhxu8407565904_6;}\[id number]}{\list\aboqqwkmlgthdr92{\listlevel\levelnfc0 \levelfollow0\levelstartat1{\leveltext \'02\'00.}{\levelnumbers \'01}}{\listlevel\levelnfc0\levelfollow0\levelstartat1{\leveltext \'02\'01.}{\levelnumbers \'01}}{\listlevel\levelnfc0\levelfollow0\levels tartat1{\leveltext \'02\'02.}{\levelnumbers \'01}}{\listlevel\levelnfc0\levelfollow0\levelstartat1{\leveltext \'02\'03.}{\levelnumbers \'01}}{\listlevel\levelnfc0\levelfollow0\levelstartat1{\leveltext \ '02\'04.}{\levelnumbers \'01}}{\listlevel\levelnfc0\levelfollow0\levelstartat1{\leveltext \'02\'05.}{ \levelnumbers \'01}}{\listlevel\levelnfc0\levelfollow0\levelstartat1{\leveltext \'02\'06.}{\levelnumbers \'01}}{\listlevel\levelnfc0\levelfollow0\levelstartat1{\leveltext \'02\'07.}{\levelnumbers \'01}} {\listlevel\levelnfc0\levelfollow0\levelstartat1{\leveltext \'02\'08.}{\levelnumbers \'01}}{\listname [id number];}\[id number]}{\list\[id number]{\listlevel\l evelnfc0\levelfollow0\levelstartat1{\leveltext \'02\'00.}{\levelnumbers \'01}}{\listlevel\levelnfc0\levelfollow0\levelstartat1{\leveltext \'02\'01.}{\levelnumbers \'01}}{\listlevel\levelnfc0\levelfollow0\levelstartat1{\leveltext \'02\'02.}{\levelnumbers \'01}}{\listlevel\levelnfc0\levelfollow0\levelstartat1{\leveltext \'0 2\'03.}{\levelnumbers \'01}}{\listlevel\levelnfc0\levelfollow0\levelstartat1{\leveltext \'02\'04.}{\l evelnumbers \'01}}{\listlevel\levelnfc0\levelfollow0\levelstartat1{\leveltext \'02\'05.}{\levelnumbers \'01}}{\listlevel\levelnfc0\levelfollow0\levelstartat1{\leveltext \'02\'06.}{\levelnumbers \'01}}{\ listlevel\levelnfc0\levelfollow0\levelstartat1{\leveltext \'02\'07.}{\levelnumbers \'01}}{\listlevel\ levelnfc0\levelfollow0\levelstartat1{\leveltext \'02\'08.}{\levelnumbers \'01}}{\listname [id number];}\[id number]}{\list\[id number]{\listlevel\levelnfc0\le velfollow0\levelstartat1{\leveltext \'02\'00.}{\levelnumbers \'01}}{\listlevel\levelnfc0\levelfollow0\levelstartat1{\leveltext \'02\'01.}{\levelnumbers \'01}}{\listlevel\levelnfc0\levelfollow0\levelstartat1{\leveltext \'02\ '02.}{\levelnumbers \'01}}{\listlevel\levelnfc0\levelfollow0\levelstartat1{\leveltext \'02\'03.}{\levelnumbers \'01}}{\listlevel\levelnfc0\levelfollow0\levelstartat1{\leveltext \'02\'04.}{\levelnumbers \'01}}{\listlevel\levelnfc0\levelfollow0\levelstartat1{\leveltext \'02\'05.}{\levelnumbers \'01}}{\li stlevel\levelnfc0\levelfollow0\levelstartat1{\leveltext \'02\'06.}{\levelnumbers \'01}}{\listlevel\levelnfc0\levelfollow0\levelstartat1{\leveltext \'02\'07.}{\levelnumbers \'01}}{\listlevel\levelnfc0\le velfollow0\levelstartat1{\leveltext \'02\'08.}{\levelnumbers \'01}}{\listname [id number];}\list [id number]}{\list\[id number]{\listlevel\levelnfc0\levelfollow0\l evelstartat1{\leveltext \'02\'00.}{\levelnumbers \'01}}{\listlevel\levelnfc0\levelfollow0\levelstartat1{\leveltext \'02\'0 1.}{\levelnumbers \'01}}{\listlevel\levelnfc0\levelfollow0\levelstartat1{\leveltext \'02\'02.}{\levelnumbers \'01}}{\listlevel\levelnfc0\levelfollow0\levelstartat1{\leveltext \'02\'03.}{\levelnumbers \' 01}}{\listlevel\levelnfc0\levelfollow0\levelstartat1{\leveltext \'02\'04.}{\levelnumbers \'01}}{\list level\levelnfc0\levelfollow0\levelstartat1{\leveltext \'02\'05.}{\levelnumbers \'01}}{\listlevel\levelnfc0\levelfollow0\levelstartat1{\leveltext \'02\'06.}{\levelnumbers \'01}}{\listlevel\levelnfc0\leve lfollow0\levelstartat1{\leveltext \'02\'07.}{\levelnumbers \'01}}{\listlevel\levelnfc0\levelfollow0\levelstartat1{\leveltext \'02\'08.}{\levelnumbers \'01}}{\listname [id number];}\[id number] }{\list\[id number]{\listlevel\levelnfc0\levelfollow0\levelstartat1 {\leveltext \'02\'00.}{\levelnumbers \'01}}{\listlevel\levelnfc0\levelfollow0\levelstartat1{\leveltext \'02\'01.}{\levelnumbers \'01}}{\listlevel\levelnfc0\levelfollow0\levelstartat1{\leveltext \'02\'02.}{\levelnumbers \'01 }}{\listlevel\levelnfc0\levelfollow0\levelstartat1{\leveltext \'02\'03.}{\levelnumbers \'01}}{\listle gilma\levelnfc0\levelfollow0\levelstartat1{\leveltext \'02\04.}{\levelnumbers \'01}}{\listlevel\levelnfc0\levelfollow0\levelstartat1{\leveltext \'02\'05.}{\levelnumbers \'01}}{\listlevel\levelnfc0\levelf ollow0\levelstartat1{\leveltext \'02\'06.}{\levelnumbers \'01}}{\listlevel\levelnfc0\levelfollow0\levelstartat1{\leveltext \'02\07.}{\levelnumbers \'01}}{\listlevel\levelnfc0\levelfollow0\levelstartat1 {\leveltext \'\08.}{\levelnumbers \'01}}{\listname [id number];}\[id number]}{\list\list templateid1{\listlevel\\levelfollow0\levelstartat1{\leveltext \'01\'b7}{\levelnumbers}\f1\f cs1\f1\af1\fcs0\rtlch\f1\af1\ltrch\fs20}{\listlevel\levelnfc0\levelfollow0\level startat1{\leveltext \'02\'01.}{\levelnumbers \'01}}{\listlevel\levelnfc0\levelfollow0\levelstartat1{\leveltext \'02\'02.}{ \levelnumbers \'01}}{\listlevel\levelnfc0\levelfollow0\levelstartat1{\leveltext \'02\'03.}{\levelnumbers \'01}}{\listlevel\levelnfc0\levelfollow0\levelstartat1{\leveltext \'02\'04.}{\levelnumbers \'01}} {\listlevel\levelnfc0\levelfollow0\levelstartat1{\leveltext \'02\'05.}{\levelnumbers \'01}}{\listleve l\levelnfc0\levelfollow0\levelstartat1{\leveltext \'\.}{\levelnumbers \'01}}{\listlevel\levelnfc0\levelfollow0\levelstartat1{\leveltext \'\.}{\levelnumbers \'01}}{\listlevel\levelnfc0\levelfol low0\levelstartat1{\leveltext \'02\08.}{\levelnumbers \'01}}{\listname HTML-List1;}\[id number] }{\list\listtemplateid2{\listlevel\laimhmya41\levelfollow0\levelstartat1{\levelt ext \'\'b7}{\leveln umbers}\f1\fcs1\f1\af1\fcs0\rtlch\f1\af1\ltrch\fs20}{\listlevel\levelnfc0\levelf ollow0\levelstartat1{\leveltext \'02\'.}{\levelnumbers \'01}}{\listlevel\levelnfc0\levelfollow0\levelstartat1{\leveltext \'02\'02.}{\levelnumbers \'01}}{\listlevel\levelnfc0\levelfollow0\levelstartat1{\leveltext \'02\'03. }{\levelnumbers \'01}}{\listlevel\levelnfc0\levelfollow0\levelstartat1{\leveltext \'02\'04.}{\levelnumbers \'01}}{\listlevel\levelnfc0\levelfollow0\levelstartat1{\leveltext \'02\'05.}{\levelnumbers \'01 }}{\listlevel\levelnfc0\levelfollow0\levelstartat1{\leveltext \'02\'06.}{\levelnumbers \'01}}{\listle gilma\levelnfc0\levelfollow0\levelstartat1{\leveltext \'\07.}{\levelnumbers \'01}}{\listlevel\levelnfc0\levelfollow0\levelstartat1{\leveltext \'02\08.}{\levelnumbers \'01}}{\listname HTML-List2;}\list [id number]}{\list\listtemplateid3{\listlevel\gvyrqqtb45\levelfollow0\levelstar tat1{\leveltext \'\ 'b7}{\levelnumbers}\f1\fcs1\f1\af1\fcs0\rtlch\f1\af1\ltrch\fs20}{\listlevel\leve lnfc0\levelfollow0\levelstartat1{\leveltext \'02\'.}{\levelnumbers \'01}}{\listlevel\levelnfc0\levelfollow0\levelstartat1{\leveltext \'02\'02.}{\levelnumbers \'01}}{\listlevel\levelnfc0\levelfollow0\levelstartat1{\leveltext \'02\'03.}{\levelnumbers \'01}}{\listlevel\levelnfc0\levelfollow0\levelstartat1{\leveltext \'02\'0 4.}{\levelnumbers \'01}}{\listlevel\levelnfc0\levelfollow0\levelstartat1{\leveltext \'02\'05.}{\levelnumbers \'01}}{\listlevel\levelnfc0\levelfollow0\levelstartat1{\leveltext \'02\'06.}{\levelnumbers \' 01}}{\listlevel\levelnfc0\levelfollow0\levelstartat1{\leveltext \'02\'07.}{\levelnumbers \'01}}{\list level\levelnfc0\levelfollow0\levelstartat1{\leveltext \'02\08.}{\levelnumbers \'01}}{\listname [facility]- List3;}\[id number]}{\list\listtemplateid1{\listlevel\thethlph64\levelfollo w0\levelstartat1{\leveltext \'01\'b7}{\levelnumbers}\f1\fcs1\f1\af1\fcs0\rtlch\f1\af1\ltrch\fs20}{\listlevel \levelnfc0\levelfollow0\levelstartat1{\leveltext \'\'.}{\levelnumbers \'01}}{\listlevel\levelnfc0\levelfollow0\levelstartat1{\leveltext \'\02.}{\levelnumbers \'01}}{\listlevel\levelnfc0\levelfollow0\levelstart at1{\leveltext \'02\'03.}{\levelnumbers \'01}}{\listlevel\levelnfc0\levelfollow0\levelstartat1{\leveltext \'\04.}{\levelnumbers \'01}}{\listlevel\levelnfc0\levelfollow0\levelstartat1{\leveltext \'\ '05.}{\levelnumbers \'01}}{\listlevel\levelnfc0\levelfollow0\levelstartat1{\leveltext \'02\'06.}{\levelnumbers \'01}}{\listlevel\levelnfc0\levelfollow0\levelstartat1{\leveltext \'\07.}{\levelnumbers \'01}}{\listlevel\levelnfc0\levelfollow0\levelstartat1{\leveltext \'\08.}{\levelnumbers \'01}}{\listname HTML-List1;}\[id number]}{\list\listtemplateid2{\listlevel\ijgntlsl84\level follow0\levelstartat1{\leveltext \'01\'b7}{\levelnumbers}\f1\fcs1\f1\af1\fcs0\rtlch\f1\af1\ltrch\fs20}{\listlevel \levelnfc0\levelfollow0\levelstartat1{\leveltext \'02\'01.}{\levelnumbers \'01}}{\listlevel\levelnfc0\levelfollow0\levelstartat1{\leveltext \'02\'02.}{\levelnumbers \'01}}{\listlevel\levelnfc0\levelfollow 0\levelstartat1{\leveltext \'02\'03.}{\levelnumbers \'01}}{\listlevel\levelnfc0\levelfollow0\levelstartat1{\leveltext \'02\'04.}{\levelnumbers \'01}}{\listlevel\levelnfc0\levelfollow0\levelstartat1{\leveltext \'02\'05.}{\levelnumbers \'01}}{\listlevel\levelnfc0\levelfollow0\levelstartat1{\leveltext \'0 2\'06.}{\levelnumbers \'01}}{\listlevel\levelnfc0\levelfollow0\levelstartat1{\leveltext \'02\'07.}{\l evelnumbers \'01}}{\listlevel\levelnfc0\levelfollow0\levelstartat1{\leveltext \'02\'08.}{\levelnumbers \'01}}{\listname HTML-List2;}\[id number]}{\list\listtemplateid3{\listlevel\gfowkull69\level follow0\levelstartat1{\leveltext \'01\'b7}{\levelnumbers}\f1\fcs1\f1\af1\fcs0\rtlch\f1\af1\ltrch\fs20}{ \listlevel\levelnfc0\levelfollow0\levelstartat1{\leveltext \'02\'01.}{\levelnumbers \'01}}{\listlevel \levelnfc0\levelfollow0\levelstartat1{\leveltext \'02\'02.}{\levelnumbers \'01}}{\listlevel\levelnfc0\levelfollow0\levelstartat1{\leveltext \'02\'03.}{\levelnumbers \'01}}{\listlevel\levelnfc0\levelfoll ow0\levelstartat1{\leveltext \'02\'04.}{\levelnumbers \'01}}{\listlevel\levelnfc0\levelfollow0\levelstartat1{\leveltext \'02\'05.}{\levelnumbers \'01}}{\listlevel\levelnfc0\levelfollow0\levelstartat1{\leveltext \'02\'06.}{\levelnumbers \'01}}{\listlevel\levelnfc0\levelfollow0\levelstartat1{\leveltext \ '02\'07.}{\levelnumbers \'01}}{\listlevel\levelnfc0\levelfollow0\levelstartat1{\leveltext \'02\'08.}{ \levelnumbers \'01}}{\listname HTML-List3;}\[id number]}{\list\listtemplateid1{\listlevel\leveln fc0\levelfollow0\levelstartat1{\leveltext \'02\'00.}{\levelnumbers \'01}}{\listlevel\levelnfc0\levelfollow0\levelstartat1{\leveltext \'02\'01.}{\levelnumbers \'01}}{\listlevel\levelnfc0\levelfollow0\lev elstartat1{\leveltext \'02\'02.}{\levelnumbers \'01}}{\listlevel\levelnfc0\levelfollow0\levelstartat1{\leveltext \'02\'03.}{\levelnumbers \'01}}{\listlevel\levelnfc0\levelfollow0\levelstartat1{\leveltext \'02\'04.}{\levelnumbers \'01}}{\listlevel\levelnfc0\levelfollow0\levelstartat1{\leveltext \'02\'05 .}{\levelnumbers \'01}}{\listlevel\levelnfc0\levelfollow0\levelstartat1{\leveltext \'02\'06.}{\levelnumbers \'01}}{\listlevel\levelnfc0\levelfollow0\levelstartat1{\leveltext \'02\'07.}{\levelnumbers \'0 1}}{\listlevel\levelnfc0\levelfollow0\levelstartat1{\leveltext \'02\'08.}{\levelnumbers \'01}}{\listname Ztbk3465500549_8;}\[id number]}{\list\listtemplateid2{\listlevel\levelnfc0\ levelfollow0\levelstartat1{\leveltext \'02\'00.}{\levelnumbers \'01}}{\listlevel\levelnfc0\levelfollow0\levelstartat1{\leveltext \'02\'01.}{\levelnumbers \'01}}{\listlevel\levelnfc0\levelfollow0\levelstartat1{\leveltext \'02\'02.}{\levelnumbers \'01}}{\listlevel\levelnfc0\levelfollow0\levelstartat1{\leveltext \'02\'03. }{\levelnumbers \'01}}{\listlevel\levelnfc0\levelfollow0\levelstartat1{\leveltext \'02\'04.}{\levelnumbers \'01}}{\listlevel\levelnfc0\levelfollow0\levelstartat1{\leveltext \'02\'05.}{\levelnumbers \'01 }}{\listlevel\levelnfc0\levelfollow0\levelstartat1{\leveltext \'02\'06.}{\levelnumbers \'01}}{\listle gilma\levelnfc0\levelfollow0\levelstartat1{\leveltext \'02\'07.}{\levelnumbers \'01}}{\listlevel\levelnfc0\levelfollow0\levelstartat1{\leveltext \'02\'08.}{\levelnumbers \'01}}{\listname [id number]; }\[id number]}{\list\[id number]{\listlevel\\levelfo llow0\levelstartat5{\leveltext \'01n}{\levelnumbers}\f4\fs16}{\listlevel\fmgnyjqv22\levelfollow0\levelstartat5{ \leveltext\'01- }{\levelnumbers}\fs22}{\listlevel\idvoypca82\levelfollow0\levelstartat1{\levelte xt \'01o}{\level numbers}\f3\fs22}{\listlevel\zysvjfyp18\levelfollow0\levelstartat1{\leveltext \'01\'b7}{\levelnumbers }\f2\fs22}{\listlevel\uoizqrlg06\levelfollow0\levelstartat1{\leveltext \'01o}{\levelnumbers}\f3\fs22} {\listlevel\\levelfollow0\levelstartat1{\leveltext \'01\'a7}{\levelnumbers}\f4\fs22}{\listl evel\quivovbi77\levelfollow0\levelstartat1{\leveltext \'01\'b7}{\levelnumbers}\f2\fs22}{\listlevel\le tyrqwc65\levelfollow0\levelstartat1{\leveltext \'01o}{\levelnumbers}\f3\fs22}{\listlevel\syvcjeoq45\l evelfollow0\levelstartat1{\leveltext \'\'a7}{\levelnumbers}\f4\fs22}{\listname ;}\[phone]} {\list\[id number]{\listlevel\vnowiukb67\levelfollow0\levelstartat1 {\leveltext \'01\q54824 ?}{\levelnumbers}\f4}{\listlevel\bhcjbalv64\levelfollow0\levelstartat1{\leveltex t \'\y76449 ?}{\ levelnumbers}\f4}{\listlevel\ilgxxpbk37\levelfollow0\levelstartat1{\leveltext \'\l00196 ?}{\levelnu mbers}\f4}{\listlevel\oetnwfaa78\levelfollow0\levelstartat1{\leveltext \'01\f78657 ?}{\levelnumbers}\ f4}{\listlevel\\levelfollow0\levelstartat1{\leveltext \'\x54202 ?}{\levelnumbers}\f4}{\li stlevel\snuzdtmi96\levelfollow0\levelstartat1{\leveltext \'\z17982 ?}{\levelnumbers}\f4}{\listlevel \rkuxnlkp24\levelfollow0\levelstartat1{\leveltext \'\g27584 ?}{\levelnumbers}\f4}{\listlevel\leveln fc23\levelfollow0\levelstartat1{\leveltext \'\d94429 ?}{\levelnumbers}\f4}{\listlevel\soszqsup24\le velfollow0\levelstartat1{\leveltext \'\f02119 ?}{\levelnumbers}\f4}{\listname ;}\[id number]}{\l ist\[id number]{\listlevel\tvcsiaoo26\levelfollow0\levelstartat1{\le veltext \'\v35618 ? }{\levelnumbers}\f4}{\listlevel\uidqebkh72\levelfollow0\levelstartat1{\leveltext \'\a16843 ?}{\leve lnumbers}\f4}{\listlevel\lmhqepqw74\levelfollow0\levelstartat1{\leveltext \'\a04733 ?}{\levelnumber s}\f4}{\listlevel\eihhoeml71\levelfollow0\levelstartat1{\leveltext \'\u27823 ?}{\levelnumbers}\f4}{ \listlevel\xmjclrwe74\levelfollow0\levelstartat1{\leveltext \'\e09866 ?}{\levelnumbers}\f4}{\listle gilma\yunbimce25\levelfollow0\levelstartat1{\leveltext \'\x97173 ?}{\levelnumbers}\f4}{\listlevel\lev elnfc23\levelfollow0\levelstartat1{\leveltext \'\x83582 ?}{\levelnumbers}\f4}{\listlevel\ \levelfollow0\levelstartat1{\leveltext \'01\p75385 ?}{\levelnumbers}\f4}{\listlevel\jlwjhura33\levelf ollow0\levelstartat1{\leveltext \'\v94012 ?}{\levelnumbers}\f4}{\listname ;}\[id number]}{\list\listtemplateid- [id number]{\listlevel\levelnfc4\levelfollow0\levelstartat1{\leveltext \'02\'00)}{\levelnumbers \'01}\fcs1\f5\af5\fcs0\rtlch\f5\af5\ltrch}{\listlevel\levelnfc4\levelfollow0\lev elstartat1{\leveltext \'02\')}{\levelnumbers \'01}\fcs1\f5\af5\fcs0\rtlch\f5\af5\ltrch}{\listlevel\levelnfc4\l evelfollow0\levelstartat1{\leveltext \'02\'02)}{\levelnumbers \'01}\fcs1\f5\af5\fcs0\rtlch\f5\af5\ltr ch}{\listlevel\levelnfc4\levelfollow0\levelstartat1{\leveltext \'02\'03)}{\levelnumbers \'01}\fcs1\f5 \af5\fcs0\rtlch\f5\af5\ltrch}{\listlevel\levelnfc4\levelfollow0\levelstartat1{\l eveltext \'02\'04)}{\levelnumbers \'01}\fcs1\f5\af5\fcs0\rtlch\f5\af5\ltrch}{\listlevel\levelnfc4\levelfollow0\lev elstartat1{\leveltext \'02\'05)}{\levelnumbers \'01}\fcs1\f5\af5\fcs0\rtlch\f5\af5\ltrch}{\listlevel\levelnfc 4\levelfollow0\levelstartat1{\leveltext \'02\'06)}{\levelnumbers \'01}\fcs1\f5\af5\fcs0\rtlch\f5\af5\ ltrch}{\listlevel\levelnfc4\levelfollow0\levelstartat1{\leveltext \'02\'07)}{\levelnumbers \'01}\fcs1 \f5\af5\fcs0\rtlch\f5\af5\ltrch}{\listlevel\levelnfc4\levelfollow0\levelstartat1 {\leveltext \'02\08)}{\levelnumbers \'01}\fcs1\f5\af5\fcs0\rtlch\f5\af5\ltrch}{\listname ;}\[id number]}{\list\listt emplateid1{\listlevel\levelnfc0\levelfollow0\levelstartat1{\leveltext \'02\'00.}{\levelnumbers \'01}} {\listlevel\levelnfc0\levelfollow0\levelstartat1{\leveltext \'02\'01.}{\levelnumbers \'01}}{\listleve l\levelnfc0\levelfollow0\levelstartat1{\leveltext \'02\'02.}{\levelnumbers \'01}}{\listlevel\levelnfc0\levelfollow0\levelstartat1{\leveltext \'02\'03.}{\levelnumbers \'01}}{\listlevel\levelnfc0\levelfol low0\levelstartat1{\leveltext \'02\'04.}{\levelnumbers \'01}}{\listlevel\levelnfc0\levelfollow0\levelstartat1{\leveltext \'02\'05.}{\levelnumbers \'01}}{\listlevel\levelnfc0\levelfollow0\levelstartat1{\leveltext \'02\06.}{\levelnumbers \'01}}{\listlevel\levelnfc0\levelfollow0\levelstartat1{\leveltext \'\07.}{\levelnumbers \'01}}{\listlevel\levelnfc0\levelfollow0\levelstartat1{\leveltext \'\08.} {\levelnumbers \'01}}{\listname [id number]_1;}\[id number]}{\list\wwrnkpbxljfbze175545699{\l istlevel\xignvxtr89\levelfollow0\levelstartat1{\leveltext \'\'b7}{\levelnumbers}\f2\fs20}{\listleve l\wgbjmumz94\levelfollow0\levelstartat1{\leveltext \'01o}{\levelnumbers}\f3\fs20}{\listlevel\levelnfc 23\levelfollow0\levelstartat1{\leveltext \'\'a7}{\levelnumbers}\f4\fs20}{\listlevel\qjnllygd63\leve lfollow0\levelstartat1{\leveltext \'\'a7}{\levelnumbers}\f4\fs20}{\listlevel\ltogcvuf84\levelfollow 0\levelstartat1{\leveltext \'\'a7}{\levelnumbers}\f4\fs20}{\listlevel\\levelfollow0\level startat1{\leveltext \'\'a7}{\levelnumbers}\f4\fs20}{\listlevel\gjesrubc66\levelfollow0\levelstarta t1{\leveltext \'\'a7}{\levelnumbers}\f4\fs20}{\listlevel\xqoaavko62\levelfollow0\levelstarta t1{\leveltext \'\'a7}{\levelnumbers}\f4\fs20}{\listlevel\htvsvsxi02\levelfollow0\levelstarta t1{\leveltext \'\'a7}{\levelnumbers}\f4\fs20}{\listname ;}\[id number]}{\list\[id number]{\listle gilma\duohvzqm72\levelfollow0\levelstartat1{\leveltext \'\'b7}{\levelnumbers}\f2\fs22}{\listlevel\lev elnfc23\levelfollow0\levelstartat1{\leveltext \'01o}{\levelnumbers}\f3\fs22}{\listlevel\tpppzqif55\le velfollow0\levelstartat1{\leveltext \'\'a7}{\levelnumbers}\f4\fs22}{\listlevel\vvdaolat18\levelfoll ow0\levelstartat1{\leveltext \'\'b7}{\levelnumbers}\f2\fs22}{\listlevel\xedafgzk00\levelfollow0\lev elstartat1{\leveltext \'01o}{\levelnumbers}\f3\fs22}{\listlevel\phpqosts63\levelfollow0\levelstartat1 {\leveltext \'\'a7}{\levelnumbers}\f4\fs22}{\listlevel\zyjotfoq14\levelfollow0\levelstarta t1{\leveltext \'01\'b7}{\levelnumbers}\f2\fs22}{\listlevel\iwjxcgah18\levelfollow0\levelstarta t1{\leveltext \' 01o}{\levelnumbers}\f3\fs22}{\listlevel\vwshlaow62\levelfollow0\levelstartat1{\l eveltext \'\'a7}{\levelnumbers}\f4\fs22}{\listname ;}\[id number]}{\list\listtemplateid-[id number]{\listlevel\level nfc23\levelfollow0\levelstartat1{\leveltext \'01\x87290 ?}{\levelnumbers}\f2}{\listlevel\fqckjkeg21\l evelfollow0\levelstartat1{\leveltext \'01o}{\levelnumbers}\f3}{\listlevel\etkfrefv40\levelfollow0\lev elstartat1{\leveltext \'01\m94475 ?}{\levelnumbers}\f4}{\listlevel\tshziqqj67\levelfollow0\levelstart at1{\leveltext \'01\u70759 ?}{\levelnumbers}\f2}{\listlevel\eqliocct24\levelfollow0\levelstartat1{\le veltext \'01o}{\levelnumbers}\f3}{\listlevel\fkedciuv13\levelfollow0\levelstartat1{\leve ltext \'01\r42175 ?}{\levelnumbers}\f4}{\listlevel\lpjycjyh41\levelfollow0\levelstartat1{\leveltex t \'01\i28996 ?} {\levelnumbers}\f2}{\listlevel\sanfhomj24\levelfollow0\levelstartat1{\leveltext \'01o}{\levelnumbers} \f3}{\listlevel\xursnjlp91\levelfollow0\levelstartat1{\leveltext \'01\t59651 ?}{\levelnumbers}\f4}{\listname ;}\[id number]}{\list\listtemplateid2{\listlevel\levelnfc0\levelfollow0\leve lstartat1{\leveltext \'02\'00.}{\levelnumbers \'01}}{\listlevel\levelnfc0\levelfollow0\levelstartat1{\leveltext \' 02\'01.}{\levelnumbers \'01}}{\listlevel\levelnfc0\levelfollow0\levelstartat1{\leveltext \'02\'02.}{\ levelnumbers \'01}}{\listlevel\levelnfc0\levelfollow0\levelstartat1{\leveltext \'02\'03.}{\levelnumbers \'01}}{\listlevel\levelnfc0\levelfollow0\levelstartat1{\leveltext \'02\'04.}{\levelnumbers \'01}}{ \listlevel\levelnfc0\levelfollow0\levelstartat1{\leveltext \'02\'05.}{\levelnumbers \'01}}{\listlevel\levelnfc0\levelfollow0\levelstartat1{\leveltext \'02\'06.}{\levelnumbers \'01}}{\li stlevel\levelnfc0\levelfollow0\levelstartat1{\leveltext \'02\'07.}{\levelnumbers \'01}}{\listlevel\levelnfc0\levelfollow0\levelstartat1{\leveltext \'02\'08.}{\levelnumbers \'01}}{\listname [id number] 1_1;}\[id number]}{\list\listtemplateid-[id number]{\listlevel\fvtxpbem80\le velfollow0\levelstartat1{\leveltext \'01\'b7}{\levelnumbers}\f2\fs22}{\listlevel\iunullpv76\levelfollow0\levelstarta t1{\leveltext \'01o}{\levelnumbers}\f3\fs22}{\listlevel\cwdxqlfi98\levelfollow0\levelstartat1{ \leveltext \' 01\'a7}{\levelnumbers}\f4\fs22}{\listlevel\mmeirbrq10\levelfollow0\levelstartat1 {\leveltext \'\'b7} {\levelnumbers}\f2\fs22}{\listlevel\\levelfollow0\levelstartat1{\level text \'01o}{\levelnum bers}\f3\fs22}{\listlevel\\levelfollow0\levelstartat1{\leveltext \'\'a7}{\levelnumbers}\f 4\fs22}{\listlevel\jyikimhb24\levelfollow0\levelstartat1{\leveltext \'\'b7}{\levelnumbers}\f2\fs22} {\listlevel\ipqxndfd60\levelfollow0\levelstartat1{\leveltext \'01o}{\levelnumbers}\f3\fs22}{\listleve l\urybrmqi23\levelfollow0\levelstartat1{\leveltext \'\'a7}{\levelnumbers}\f4\fs22}{\listname ;}\lis [id number]}{\list\hjdzuzltjqfywb72{\listlevel\levelnfc0\levelfollow0\levelsta rtat1{\leveltext \'02\'00.}{\levelnumbers \'01}}{\listlevel\levelnfc0\levelfollow0\levelstartat1{\leveltext \'02\'01.}{\le velnumbers \'01}}{\listlevel\levelnfc0\levelfollow0\levelstartat1{\leveltext \'02\'02.}{\levelnumbers \'01}}{\listlevel\levelnfc0\levelfollow0\levelstartat1{\leveltext \'02\'03.}{\levelnumbers \'01}}{\l istlevel\levelnfc0\levelfollow0\levelstartat1{\leveltext \'02\04.}{\levelnumbers \'01}}{\listlevel\l evelnfc0\levelfollow0\levelstartat1{\leveltext \'02\05.}{\levelnumbers \'01}}{\listlevel\levelnfc0\levelfollow0\levelstartat1{\leveltext \'02\06.}{\levelnumbers \'01}}{\listlevel\levelnfc0\levelfollow 0\levelstartat1{\leveltext \'02\07.}{\levelnumbers \'01}}{\listlevel\levelnfc0\levelfollow0\levelstartat1{\leveltext \'02\08.}{\levelnumbers \'01}}{\listname [id number];}\[id number]}{\list \uervrgtlnhbhfd26{\listlevel\levelnfc0\levelfollow0\levelstartat1{\leveltext \'02\'00.}{\levelnumbers \'01}}{\listlevel\levelnfc0\levelfollow0\levelstartat1{\leveltext \'02\'01.}{\levelnumbers \'01}}{\l istlevel\levelnfc0\levelfollow0\levelstartat1{\leveltext \'02\'02.}{\levelnumbers \'01}}{\listlevel\l evelnfc0\levelfollow0\levelstartat1{\leveltext \'02\'03.}{\levelnumbers \'01}}{\listlevel\levelnfc0\levelfollow0\levelstartat1{\leveltext \'02\'04.}{\levelnumbers \'01}}{\listlevel\levelnfc0\levelfollow 0\levelstartat1{\leveltext \'02\'05.}{\levelnumbers \'01}}{\listlevel\levelnfc0\levelfollow0\levelstartat1{\leveltext \'02\'06.}{\levelnumbers \'01}}{\listlevel\levelnfc0\levelfollow0\levelstartat1{\leveltext \'02\'07.}{\levelnumbers \'01}}{\listlevel\levelnfc0\levelfollow0\levelstartat1{\leveltext \'0 2\'08.}{\levelnumbers \'01}}{\listname [id number]_6;}\[id number]}{\list\pnpiyndqzozxar21{\l istlevel\levelnfc0\levelfollow0\levelstartat1{\leveltext \'02\'00.}{\levelnumbers \'01}}{\listlevel\l evelnfc0\levelfollow0\levelstartat1{\leveltext \'02\'01.}{\levelnumbers \'01}}{\listlevel\levelnfc0\levelfollow0\levelstartat1{\leveltext \'02\'02.}{\levelnumbers \'01}}{\listlevel\levelnfc0\levelfollow 0\levelstartat1{\leveltext \'02\'03.}{\levelnumbers \'01}}{\listlevel\levelnfc0\levelfollow0\levelstartat1{\leveltext \'02\'04.}{\levelnumbers \'01}}{\listlevel\levelnfc0\levelfollow0\levelstartat1{\leveltext \'02\'05.}{\levelnumbers \'01}}{\listlevel\levelnfc0\levelfollow0\levelstartat1{\leveltext \'0 2\'06.}{\levelnumbers \'01}}{\listlevel\levelnfc0\levelfollow0\levelstartat1{\leveltext \'02\'07.}{\l evelnumbers \'01}}{\listlevel\levelnfc0\levelfollow0\levelstartat1{\leveltext \'02\'08.}{\levelnumbers \'01}}{\listname [id number];}\[id number]}{\list\agtbataabjjiht94{\listlevel\levelnfc0 \levelfollow0\levelstartat1{\leveltext \'02\'00.}{\levelnumbers \'01}}{\listlevel\levelnfc0\levelfollow0\levelstartat1{\leveltext \'02\'01.}{\levelnumbers \'01}}{\listlevel\levelnfc0\levelfollow0\levelsta rtat1{\leveltext \'02\'02.}{\levelnumbers \'01}}{\listlevel\levelnfc0\levelfollow0\levelstartat1{\leveltext \'02\'03.}{\levelnumbers \'01}}{\listlevel\levelnfc0\levelfollow0\levelstartat1{\leveltext \'0 2\'04.}{\levelnumbers \'01}}{\listlevel\levelnfc0\levelfollow0\levelstartat1{\leveltext \'02\'05.}{\l evelnumbers \'01}}{\listlevel\levelnfc0\levelfollow0\levelstartat1{\leveltext \'02\'06.}{\levelnumbers \'01}}{\listlevel\levelnfc0\levelfollow0\levelstartat1{\leveltext \'02\'07.}{\levelnumbers \'01}}{\ listlevel\levelnfc0\levelfollow0\levelstartat1{\leveltext \'02\'08.}{\levelnumbers \'01}}{\listname L djf9040100326_6;}\[id number]}{\list\etcpjrjbihtcdj32{\listlevel\levelnfc0\ levelfollow0\levelstartat1{\leveltext \'02\'00.}{\levelnumbers \'01}}{\listlevel\levelnfc0\levelfollow0\levelstartat1{\leveltext \'02\'01.}{\levelnumbers \'01}}{\listlevel\levelnfc0\levelfollow0\levelstartat1{\leveltext \'0 2\'02.}{\levelnumbers \'01}}{\listlevel\levelnfc0\levelfollow0\levelstartat1{\leveltext \'02\'03.}{\l evelnumbers \'01}}{\listlevel\levelnfc0\levelfollow0\levelstartat1{\leveltext \'02\'04.}{\levelnumbers \'01}}{\listlevel\levelnfc0\levelfollow0\levelstartat1{\leveltext \'02\'05.}{\levelnumbers \'01}}{\ listlevel\levelnfc0\levelfollow0\levelstartat1{\leveltext \'02\'06.}{\levelnumbers \'01}}{\listlevel\ levelnfc0\levelfollow0\levelstartat1{\leveltext \'02\'07.}{\levelnumbers \'01}}{\listlevel\levelnfc0\levelfollow0\levelstartat1{\leveltext \'02\'08.}{\levelnumbers \'01}}{\listname [id number];}\li [id number]}{\list\sxkrkxlqjecoqb34{\listlevel\levelnfc0\levelfollow0\levelst artat1{\leveltext \'02\'00.}{\levelnumbers \'01}}{\listlevel\levelnfc0\levelfollow0\levelstartat1{\leveltext \'02\'.}{\l evelnumbers \'01}}{\listlevel\levelnfc0\levelfollow0\levelstartat1{\leveltext \'02\'02.}{\levelnumbers \'01}}{\listlevel\levelnfc0\levelfollow0\levelstartat1{\leveltext \'02\'03.}{\levelnumbers \'01}}{\ listlevel\levelnfc0\levelfollow0\levelstartat1{\leveltext \'02\'04.}{\levelnumbers \'01}}{\listlevel\ levelnfc0\levelfollow0\levelstartat1{\leveltext \'02\'05.}{\levelnumbers \'01}}{\listlevel\levelnfc0\levelfollow0\levelstartat1{\leveltext \'02\'06.}{\levelnumbers \'01}}{\listlevel\levelnfc0\levelfollo w0\levelstartat1{\leveltext \'02\'07.}{\levelnumbers \'01}}{\listlevel\levelnfc0\levelfollow0\levelstartat1{\leveltext \'02\'08.}{\levelnumbers \'01}}{\listname [id number];}\[id number]}{\lis t\iqxlskbbdzuurk24{\listlevel\levelnfc0\levelfollow0\levelstartat1{\leveltext \'02\'00.}{\levelnumbers \'01}}{\listlevel\levelnfc0\levelfollow0\levelstartat1{\leveltext \'02\'01.}{\levelnumbers \'01}}{\ listlevel\levelnfc0\levelfollow0\levelstartat1{\leveltext \'02\'02.}{\levelnumbers \'01}}{\listlevel\ levelnfc0\levelfollow0\levelstartat1{\leveltext \'02\'03.}{\levelnumbers \'01}}{\listlevel\levelnfc0\levelfollow0\levelstartat1{\leveltext \'02\04.}{\levelnumbers \'01}}{\listlevel\levelnfc0\levelfollo w0\levelstartat1{\leveltext \'02\05.}{\levelnumbers \'}}{\listlevel\levelnfc0\levelfollow0\levelstartat1{\leveltext \'02\'06.}{\levelnumbers \'}}{\listlevel\levelnfc0\levelfollow0\levelstartat1{\leveltext \'02\'07.}{\levelnumbers \'}}{\listlevel\levelnfc0\levelfollow0\levelstartat1{\leveltext \' 02\'08.}{\levelnumbers \'}}{\listname [id number];}\[id number]}{\list\wmyindotdgykbt80{\ listlevel\levelnfc0\levelfollow0\levelstartat1{\leveltext \'02\'00.}{\levelnumbers \'01}}{\listlevel\ levelnfc0\levelfollow0\levelstartat1{\leveltext \'02\'.}{\levelnumbers \'01}}{\listlevel\levelnfc0\levelfollow0\levelstartat1{\leveltext \'02\'02.}{\levelnumbers \'01}}{\listlevel\levelnfc0\levelfollo w0\levelstartat1{\leveltext \'02\'03.}{\levelnumbers \'01}}{\listlevel\levelnfc0\levelfollow0\levelstartat1{\leveltext \'02\04.}{\levelnumbers \'01}}{\listlevel\levelnfc0\levelfollow0\levelstartat1{\leveltext \'02\05.}{\levelnumbers \'01}}{\listlevel\levelnfc0\levelfollow0\levelstartat1{\leveltext \' 02\06.}{\levelnumbers \'01}}{\listlevel\levelnfc0\levelfollow0\levelstartat1{\leveltext \'02\07.}{\ levelnumbers \'01}}{\listlevel\levelnfc0\levelfollow0\levelstartat1{\leveltext \'02\08.}{\levelnumbers \'01}}{\listname [id number];}\[id number]}{\list\nxmohnzzdwmdpz05{\listlevel\levelnfc0 \levelfollow0\levelstartat1{\leveltext \'02\'00.}{\levelnumbers \'01}}{\listlevel\levelnfc0\levelfollow0\levelstartat1{\leveltext \'02\'01.}{\levelnumbers \'01}}{\listlevel\levelnfc0\levelfollow0\levelst artat1{\leveltext \'02\'02.}{\levelnumbers \'01}}{\listlevel\levelnfc0\levelfollow0\levelstartat1{\leveltext \'02\'03.}{\levelnumbers \'01}}{\listlevel\levelnfc0\levelfollow0\levelstartat1{\leveltext \' 02\04.}{\levelnumbers \'01}}{\listlevel\levelnfc0\levelfollow0\levelstartat1{\leveltext \'02\'05.}{\ levelnumbers \'01}}{\listlevel\levelnfc0\levelfollow0\levelstartat1{\leveltext \'02\'06.}{\levelnumbers \'01}}{\listlevel\levelnfc0\levelfollow0\levelstartat1{\leveltext \'02\'07.}{\levelnumbers \'01}}{ \listlevel\levelnfc0\levelfollow0\levelstartat1{\leveltext \'02\08.}{\levelnumbers \'01}}{\listname [id number];}\[id number]}{\list\ponvrvzjixbrbz90{\listlevel\levelnfc0 \levelfollow0\levelstartat1{\leveltext \'02\'00.}{\levelnumbers \'01}}{\listlevel\levelnfc0\levelfollow0\levelstartat1{\leveltext \'02\'01.}{\levelnumbers \'01}}{\listlevel\levelnfc0\levelfollow0\levelstartat1{\leveltext \' 02\'02.}{\levelnumbers \'01}}{\listlevel\levelnfc0\levelfollow0\levelstartat1{\leveltext \'02\'03.}{\ levelnumbers \'01}}{\listlevel\levelnfc0\levelfollow0\levelstartat1{\leveltext \'02\'04.}{\levelnumbers \'01}}{\listlevel\levelnfc0\levelfollow0\levelstartat1{\leveltext \'02\'05.}{\levelnumbers \'01}}{ \listlevel\levelnfc0\levelfollow0\levelstartat1{\leveltext \'02\06.}{\levelnumbers \'01}}{\listlevel \levelnfc0\levelfollow0\levelstartat1{\leveltext \'02\07.}{\levelnumbers \'01}}{\listlevel\levelnfc0\levelfollow0\levelstartat1{\leveltext \'02\08.}{\levelnumbers \'01}}{\listname [id number];}\l [id number]}{\list\obsohvnqxqztmo56{\listlevel\levelnfc0\levelfollow0\levels tartat1{\leveltext \'02\'00.}{\levelnumbers \'01}}{\listlevel\levelnfc0\levelfollow0\levelstartat1{\leveltext \'\.}{\ levelnumbers \'01}}{\listlevel\levelnfc0\levelfollow0\levelstartat1{\leveltext \'02\'02.}{\levelnumbers \'01}}{\listlevel\levelnfc0\levelfollow0\levelstartat1{\leveltext \'\03.}{\levelnumbers \'01}}{ \listlevel\levelnfc0\levelfollow0\levelstartat1{\leveltext \'\04.}{\levelnumbers \'01}}{\listlevel \levelnfc0\levelfollow0\levelstartat1{\leveltext \'02\'05.}{\levelnumbers \'01}}{\listlevel\levelnfc0\levelfollow0\levelstartat1{\leveltext \'\06.}{\levelnumbers \'01}}{\listlevel\levelnfc0\levelfoll ow0\levelstartat1{\leveltext \'\07.}{\levelnumbers \'01}}{\listlevel\levelnfc0\levelfollow0\levelstartat1{\leveltext \'02\'08.}{\levelnumbers \'01}}{\listname [id number];}\[id number]}{\li st\rndowduuztexrz13{\listlevel\levelnfc0\levelfollow0\levelstartat1{\leveltext \'02\'00.}{\levelnumbers \'01}}{\listlevel\levelnfc0\levelfollow0\levelstartat1{\leveltext \'02\'01.}{\levelnumbers \'01}}{ \listlevel\levelnfc0\levelfollow0\levelstartat1{\leveltext \'02\'02.}{\levelnumbers \'01}}{\listlevel \levelnfc0\levelfollow0\levelstartat1{\leveltext \'02\'03.}{\levelnumbers \'01}}{\listlevel\levelnfc0\levelfollow0\levelstartat1{\leveltext \'02\'04.}{\levelnumbers \'01}}{\listlevel\levelnfc0\levelfoll ow0\levelstartat1{\leveltext \'02\'05.}{\levelnumbers \'01}}{\listlevel\levelnfc0\levelfollow0\levelstartat1{\leveltext \'02\'06.}{\levelnumbers \'01}}{\listlevel\levelnfc0\levelfollow0\levelstartat1{\leveltext \'02\'07.}{\levelnumbers \'01}}{\listlevel\levelnfc0\levelfollow0\levelstartat1{\leveltext \ '02\'08.}{\levelnumbers \'01}}{\listname [id number];}\[id number]}{\list\yqmpoggfbtwgsj77{ \listlevel\levelnfc0\levelfollow0\levelstartat1{\leveltext \'02\'00.}{\levelnumbers \'01}}{\listlevel \levelnfc0\levelfollow0\levelstartat1{\leveltext \'02\'01.}{\levelnumbers \'01}}{\listlevel\levelnfc0\levelfollow0\levelstartat1{\leveltext \'02\'02.}{\levelnumbers \'01}}{\listlevel\levelnfc0\levelfoll ow0\levelstartat1{\leveltext \'02\'03.}{\levelnumbers \'01}}{\listlevel\levelnfc0\levelfollow0\levelstartat1{\leveltext \'02\'04.}{\levelnumbers \'01}}{\listlevel\levelnfc0\levelfollow0\levelstartat1{\leveltext \'02\'05.}{\levelnumbers \'01}}{\listlevel\levelnfc0\levelfollow0\levelstartat1{\leveltext \ '02\'06.}{\levelnumbers \'01}}{\listlevel\levelnfc0\levelfollow0\levelstartat1{\leveltext \'02\'07.}{ \levelnumbers \'01}}{\listlevel\levelnfc0\levelfollow0\levelstartat1{\leveltext \'02\'08.}{\levelnumbers \'01}}{\listname [id number];}\[id number]}{\list\[id number]{\listlevel\l evelnfc0\levelfollow0\levelstartat1{\leveltext \'02\'00.}{\levelnumbers \'01}}{\listlevel\levelnfc0\levelfollow0\levelstartat1{\leveltext \'02\'01.}{\levelnumbers \'01}}{\listlevel\levelnfc0\levelfollow 0\levelstartat1{\leveltext \'02\'02.}{\levelnumbers \'01}}{\listlevel\levelnfc0\levelfollow0\levelstartat1{\leveltext \'02\'03.}{\levelnumbers \'01}}{\listlevel\levelnfc0\levelfollow0\levelstartat1{\leveltext \'02\'04.}{\levelnumbers \'01}}{\listlevel\levelnfc0\levelfollow0\levelstartat1{\leveltext \'0 2\'05.}{\levelnumbers \'01}}{\listlevel\levelnfc0\levelfollow0\levelstartat1{\leveltext \'02\'06.}{\l evelnumbers \'01}}{\listlevel\levelnfc0\levelfollow0\levelstartat1{\leveltext \'02\'07.}{\levelnumbers \'01}}{\listlevel\levelnfc0\levelfollow0\levelstartat1{\leveltext \'02\'08.}{\levelnumbers \'01}}{\listname [id number];}\[id number]}{\list\[id number]{\listlevel\l evelnfc0\levelfollow0\levelstartat1{\leveltext \'02\'00.}{\levelnumbers \'01}}{\listlevel\levelnfc0\levelfollow0\levelstartat1{\leveltext \'02\'01.}{\levelnumbers \'01}}{\listlevel\levelnfc0\levelfollow0\levelstart at1{\leveltext \'02\'02.}{\levelnumbers \'01}}{\listlevel\levelnfc0\levelfollow0\levelstartat1{\leveltext \'02\'03.}{\levelnumbers \'01}}{\listlevel\levelnfc0\levelfollow0\levelstartat1{\leveltext \'02\ '04.}{\levelnumbers \'01}}{\listlevel\levelnfc0\levelfollow0\levelstartat1{\leveltext \'02\'05.}{\levelnumbers \'01}}{\listlevel\levelnfc0\levelfollow0\levelstartat1{\leveltext \'02\'06.}{\levelnumbers \'01}}{\listlevel\levelnfc0\levelfollow0\levelstartat1{\leveltext \'02\'07.}{\levelnumbers \'01}}{\li stlevel\levelnfc0\levelfollow0\levelstartat1{\leveltext \'02\'08.}{\levelnumbers \'01}}{\listname Lis [id number];}\[id number]}{\list\[id number]{\listlevel\leve lnfc0\levelfollow0\levelstartat1{\leveltext \'02\'00.}{\levelnumbers \'01}}{\listlevel\levelnfc0\levelfollow0\levelstartat1{\leveltext \'02\'01.}{\levelnumbers \'01}}{\listlevel\levelnfc0\levelfollow0\levelstartat1{\leveltext \'02\'02.}{\levelnumbers \'01}}{\listlevel\levelnfc0\levelfollow0\levelstartat1{\leveltext \'02\'0 3.}{\levelnumbers \'01}}{\listlevel\levelnfc0\levelfollow0\levelstartat1{\leveltext \'02\'04.}{\levelnumbers \'01}}{\listlevel\levelnfc0\levelfollow0\levelstartat1{\leveltext \'02\'05.}{\levelnumbers \' 01}}{\listlevel\levelnfc0\levelfollow0\levelstartat1{\leveltext \'02\'06.}{\levelnumbers \'01}}{\list level\levelnfc0\levelfollow0\levelstartat1{\leveltext \'02\'07.}{\levelnumbers \'01}}{\listlevel\levelnfc0\levelfollow0\levelstartat1{\leveltext \'02\'08.}{\levelnumbers \'01}}{\listname [id number]_ 1;}\[id number]}{\list\[id number]{\listlevel\levelnfc0\levelf ollow0\levelstartat1{\leveltext \'02\'00.}{\levelnumbers \'01}}{\listlevel\levelnfc0\levelfollow0\levelstartat1{\leveltext \'02\'01.}{\levelnumbers \'01}}{\listlevel\levelnfc0\levelfollow0\levelstartat1{\leveltext \'02\'02. }{\levelnumbers \'01}}{\listlevel\levelnfc0\levelfollow0\levelstartat1{\leveltext \'02\'03.}{\levelnumbers \'01}}{\listlevel\levelnfc0\levelfollow0\levelstartat1{\leveltext \'02\'04.}{\levelnumbers \'01 }}{\listlevel\levelnfc0\levelfollow0\levelstartat1{\leveltext \'02\'05.}{\levelnumbers \'01}}{\listle gilma\levelnfc0\levelfollow0\levelstartat1{\leveltext \'02\06.}{\levelnumbers \'01}}{\listlevel\levelnfc0\levelfollow0\levelstartat1{\leveltext \'02\07.}{\levelnumbers \'01}}{\listlevel\levelnfc0\levelf ollow0\levelstartat1{\leveltext \'02\08.}{\levelnumbers \'01}}{\listname [id number];}\yquuvz54 [id number]}{\list\[id number]{\listlevel\levelnfc0\levelfollow0\level startat1{\leveltext \'02\'00.}{\levelnumbers \'01}}{\listlevel\levelnfc0\levelfollow0\levelstartat1{\leveltext \'02\'.}{ \levelnumbers \'01}}{\listlevel\levelnfc0\levelfollow0\levelstartat1{\leveltext \'02\'02.}{\levelnumbers \'01}}{\listlevel\levelnfc0\levelfollow0\levelstartat1{\leveltext \'02\'03.}{\levelnumbers \'01}} {\listlevel\levelnfc0\levelfollow0\levelstartat1{\leveltext \'02\'04.}{\levelnumbers \'01}}{\listleve l\levelnfc0\levelfollow0\levelstartat1{\leveltext \'02\'05.}{\levelnumbers \'01}}{\listlevel\levelnfc0\levelfollow0\levelstartat1{\leveltext \'02\'06.}{\levelnumbers \'01}}{\listlevel\levelnfc0\levelfol low0\levelstartat1{\leveltext \'02\'07.}{\levelnumbers \'01}}{\listlevel\levelnfc0\levelfollow0\levelstartat1{\leveltext \'02\'08.}{\levelnumbers \'01}}{\listname [id number];}\[id number]}{\l ist\[id number]{\listlevel\levelnfc0\levelfollow0\levelstartat1{\le veltext \'02\'00.}{\levelnumbers \'01}}{\listlevel\levelnfc0\levelfollow0\levelstartat1{\leveltext \'02\'01.}{\levelnumbers \'01}}{\listlevel\levelnfc0\levelfollow0\levelstartat1{\leveltext \'02\'02.}{\levelnumbers \'01}}{\ listlevel\levelnfc0\levelfollow0\levelstartat1{\leveltext \'02\'03.}{\levelnumbers \'01}}{\listlevel\ levelnfc0\levelfollow0\levelstartat1{\leveltext \'02\'04.}{\levelnumbers \'01}}{\listlevel\levelnfc0\levelfollow0\levelstartat1{\leveltext \'02\'05.}{\levelnumbers \'01}}{\listlevel\levelnfc0\levelfollo w0\levelstartat1{\leveltext \'02\'06.}{\levelnumbers \'01}}{\listlevel\levelnfc0\levelfollow0\levelstartat1{\leveltext \'02\'07.}{\levelnumbers \'01}}{\listlevel\levelnfc0\levelfollow0\levelstartat1{\leveltext \'02\'08.}{\levelnumbers \'01}}{\listname [id number]_2;}\[id number]}{\list\listtemp rakida08{\listlevel\levelnfc0\levelfollow0\levelstartat1{\leveltext \'02\'00.}{\levelnumbers \'01}}{\ listlevel\levelnfc0\levelfollow0\levelstartat1{\leveltext \'02\'01.}{\levelnumbers \'01}}{\listlevel\ levelnfc0\levelfollow0\levelstartat1{\leveltext \'02\'02.}{\levelnumbers \'01}}{\listlevel\levelnfc0\levelfollow0\levelstartat1{\leveltext \'02\'03.}{\levelnumbers \'01}}{\listlevel\levelnfc0\levelfollo w0\levelstartat1{\leveltext \'02\'04.}{\levelnumbers \'01}}{\listlevel\levelnfc0\levelfollow0\levelstartat1{\leveltext \'02\'05.}{\levelnumbers \'01}}{\listlevel\levelnfc0\levelfollow0\levelstartat1{\leveltext \'02\'06.}{\levelnumbers \'01}}{\listlevel\levelnfc0\levelfollow0\levelstartat1{\leveltext \' 02\'07.}{\levelnumbers \'01}}{\listlevel\levelnfc0\levelfollow0\levelstartat1{\leveltext \'02\'08.}{\ levelnumbers \'01}}{\listname [id number];}\[id number]}{\list\jogymlptlkgljz94{\listlevel\ levelnfc0\levelfollow0\levelstartat1{\leveltext \'02\'00.}{\levelnumbers \'01}}{\listlevel\levelnfc0\levelfollow0\levelstartat1{\leveltext \'02\'01.}{\levelnumbers \'01}}{\listlevel\levelnfc0\levelfollo w0\levelstartat1{\leveltext \'02\'02.}{\levelnumbers \'01}}{\listlevel\levelnfc0\levelfollow0\levelstartat1{\leveltext \'02\'03.}{\levelnumbers \'01}}{\listlevel\levelnfc0\levelfollow0\levelstartat1{\leveltext \'02\'04.}{\levelnumbers \'01}}{\listlevel\levelnfc0\levelfollow0\levelstartat1{\leveltext \' 02\'05.}{\levelnumbers \'01}}{\listlevel\levelnfc0\levelfollow0\levelstartat1{\leveltext \'02\'06.}{\ levelnumbers \'01}}{\listlevel\levelnfc0\levelfollow0\levelstartat1{\leveltext \'02\'07.}{\levelnumbers \'01}}{\listlevel\levelnfc0\levelfollow0\levelstartat1{\leveltext \'02\'08.}{\levelnumbers \'01}}{\listname [id number]_8;}\[id number]}{\list\yrdkkbakrybtok74{\listlevel\levelnfc0 \levelfollow0\levelstartat1{\leveltext \'02\'00.}{\levelnumbers \'01}}{\listlevel\levelnfc0\levelfollow0\levelstartat1{\leveltext \'02\'01.}{\levelnumbers \'01}}{\listlevel\levelnfc0\levelfollow0\levelstartat1{\leveltext \'02\'02.}{\levelnumbers \'01}}{\listlevel\levelnfc0\levelfollow0\levelstartat1{\leveltext \' 02\03.}{\levelnumbers \'01}}{\listlevel\levelnfc0\levelfollow0\levelstartat1{\leveltext \'02\'04.}{\ levelnumbers \'01}}{\listlevel\levelnfc0\levelfollow0\levelstartat1{\leveltext \'02\05.}{\levelnumbers \'01}}{\listlevel\levelnfc0\levelfollow0\levelstartat1{\leveltext \'02\'06.}{\levelnumbers \'01}}{ \listlevel\levelnfc0\levelfollow0\levelstartat1{\leveltext \'02\'07.}{\levelnumbers \'01}}{\listlevel \levelnfc0\levelfollow0\levelstartat1{\leveltext \'02\08.}{\levelnumbers \'01}}{\listname [id number] 9328_1;}\[id number]}{\list\nvokwcxszibsbv65{\listlevel\levelnfc0\levelfoll ow0\levelstartat1{\leveltext \'02\'00.}{\levelnumbers \'01}}{\listlevel\levelnfc0\levelfollow0\levelstartat1{\leveltext \' 02\'01.}{\levelnumbers \'01}}{\listlevel\levelnfc0\levelfollow0\levelstartat1{\leveltext \'02\'02.}{\ levelnumbers \'01}}{\listlevel\levelnfc0\levelfollow0\levelstartat1{\leveltext \'02\03.}{\levelnumbers \'01}}{\listlevel\levelnfc0\levelfollow0\levelstartat1{\leveltext \'02\04.}{\levelnumbers \'01}}{ \listlevel\levelnfc0\levelfollow0\levelstartat1{\leveltext \'02\05.}{\levelnumbers \'01}}{\listlevel \levelnfc0\levelfollow0\levelstartat1{\leveltext \'02\06.}{\levelnumbers \'01}}{\listlevel\levelnfc0\levelfollow0\levelstartat1{\leveltext \'\.}{\levelnumbers \'01}}{\listlevel\levelnfc0\levelfoll ow0\levelstartat1{\leveltext \'\08.}{\levelnumbers \'01}}{\listname [id number]_3;}\rifpue53614 20506}{\list\pburlevwurthim76{\listlevel\levelnfc0\levelfollow0\levelstartat1{\l eveltext \'02\'00.}{\levelnumbers \'01}}{\listlevel\levelnfc0\levelfollow0\levelstartat1{\leveltext \'\.}{\levelnumbers \'01}}{\listlevel\levelnfc0\levelfollow0\levelstartat1{\leveltext \'02\'02.}{\levelnumbers \'01}}{ \listlevel\levelnfc0\levelfollow0\levelstartat1{\leveltext \'\'03.}{\levelnumbers \'01}}{\listlevel \levelnfc0\levelfollow0\levelstartat1{\leveltext \'\04.}{\levelnumbers \'01}}{\listlevel\levelnfc0\levelfollow0\levelstartat1{\leveltext \'02\'05.}{\levelnumbers \'01}}{\listlevel\levelnfc0\levelfoll ow0\levelstartat1{\leveltext \'02\06.}{\levelnumbers \'01}}{\listlevel\levelnfc0\levelfollow0\levelstartat1{\leveltext \'\07.}{\levelnumbers \'01}}{\listlevel\levelnfc0\levelfollow0\levelstartat1{\leveltext \'02\08.}{\levelnumbers \'01}}{\listname [id number];}\[id number]}}{\*\listoverr idetable{\listoverride\ojyimg6085655903\listoverridecount9{\lfolevel\listoverrid eformat\listoverrides tartat{\listlevel\gczpskpy86\levelfollow0\levelstartat1{\leveltext \'01\'b7}{\levelnumbers}\f1\fcs1\f 1\af1\fcs0\rtlch\f1\af1\ltrch}}{\lfolevel\listoverrideformat\listoverridestartat {\listlevel\yillbqdk19\levelfollow0\levelstartat1{\leveltext \'01\'b7}{\levelnumbers}\f1\fcs1\f1\af1\fcs0\rtlch\f1\af1\ltr ch}}{\lfolevel\listoverrideformat\listoverridestartat{\listlevel\kkapsfrh88\leve lfollow0\levelstartat1{\leveltext \'01\'b7}{\levelnumbers}\f1\fcs1\f1\af1\fcs0\rtlch\f1\af1\ltrch}}{\lfolevel\list override format\listoverridestartat{\listlevel\otlgrmzm01\levelfollow0\levelstartat1{\lev eltext \'01\'b7}{\lev elnumbers}\f1\fcs1\f1\af1\fcs0\rtlch\f1\af1\ltrch}}{\lfolevel\listoverrideformat \listoverridestartat{\listlevel\xacvqsfg93\levelfollow0\levelstartat1{\leveltext \'01\'b7}{\levelnumbers}\f1\fcs1\f1\af1\f cs0\rtlch\f1\af1\ltrch}}{\lfolevel\listoverrideformat\listoverridestartat{\listl evel\vtrcxruw31\levelfollow0\levelstartat1{\leveltext \'01\'b7}{\levelnumbers}\f1\fcs1\f1\af1\fcs0\rtlch\f1\af1\ltrch}}{\l folevel\listoverrideformat\listoverridestartat{\listlevel\hgfofvnf69\levelfollow 0\levelstartat1{\leveltext \'01\'b7}{\levelnumbers}\f1\fcs1\f1\af1\fcs0\rtlch\f1\af1\ltrch}}{\lfolevel\list overrideformat\ listoverridestartat{\listlevel\qxhogygd67\levelfollow0\levelstartat1{\leveltext \'01\'b7}{\levelnumbe rs}\f1\fcs1\f1\af1\fcs0\rtlch\f1\af1\ltrch}}{\lfolevel\listoverrideformat\listov erridestartat{\listlevel\yglvhioo62\levelfollow0\levelstartat1{\leveltext \'01\'b7}{\levelnumbers}\f1\fcs1\f1\af1\fcs0\rtl ch\f1\af1\ltrch}}\ls1}{\listoverride\undkmz9252577509\listoverridecount9{\lfolev el\listoverrideformat \listoverridestartat{\listlevel\qgshndof61\levelfollow0\levelstartat1{\leveltext \'\'b7}{\levelnumb ers}\f1\fcs1\f1\af1\fcs0\rtlch\f1\af1\ltrch}}{\lfolevel\listoverrideformat\listo verridestartat{\listlevel\ttcsfznu52\levelfollow0\levelstartat1{\leveltext \'\'b7}{\levelnumbers}\f1\fcs1\f1\af1\fcs0\rt lch\f1\af1\ltrch}}{\lfolevel\listoverrideformat\listoverridestartat{\listlevel\l zhyuxhl96\levelfollow0\levelstartat1{\leveltext \'\'b7}{\levelnumbers}\f1\fcs1\f1\af1\fcs0\rtlch\f1\af1\ltrch}}{\lfoleve l\listoverrideformat\listoverridestartat{\listlevel\aztyfqdu81\levelfollow0\leve lstartat1{\leveltext \'\'b7}{\levelnumbers}\f1\fcs1\f1\af1\fcs0\rtlch\f1\af1\ltrch}}{\lfolevel\list overrideformat\listov erridestartat{\listlevel\szpjwoly22\levelfollow0\levelstartat1{\leveltext \'\'b7}{\levelnumbers}\f1 \fcs1\f1\af1\fcs0\rtlch\f1\af1\ltrch}}{\lfolevel\listoverrideformat\listoverride startat{\listlevel\jaeuiprc62\levelfollow0\levelstartat1{\leveltext \'01\'b7}{\levelnumbers}\f1\fcs1\f1\af1\fcs0\rtlch\f1\ af1\ltrch}}{\lfolevel\listoverrideformat\listoverridestartat{\listlevel\levelnfc 23\levelfollow0\levelstartat1{\leveltext \'01\'b7}{\levelnumbers}\f1\fcs1\f1\af1\fcs0\rtlch\f1\af1\ltrch}}{\lfolevel\list o verrideformat\listoverridestartat{\listlevel\ckboofpm12\levelfollow0\levelstarta t1{\leveltext \'01\'b 7}{\levelnumbers}\f1\fcs1\f1\af1\fcs0\rtlch\f1\af1\ltrch}}{\lfolevel\listoverrid eformat\listoverrides tartat{\listlevel\crhvjtjo97\levelfollow0\levelstartat1{\leveltext \'01\'b7}{\levelnumbers}\f1\fcs1\f 1\af1\fcs0\rtlch\f1\af1\ltrch}}\ls2}{\listoverride\[id number]\listoverride count9{\lfolevel\list overrideformat\listoverridestartat{\listlevel\bozoyqci05\levelfollow0\levelstart at1{\leveltext \'01\' b7}{\levelnumbers}\f1\fcs1\f1\af1\fcs0\rtlch\f1\af1\ltrch}}{\lfolevel\listoverri deformat\listoverride startat{\listlevel\hypmpxlm22\levelfollow0\levelstartat1{\leveltext \'01\'b7}{\levelnumbers}\f1\fcs1\ f1\af1\fcs0\rtlch\f1\af1\ltrch}}{\lfolevel\listoverrideformat\listoverridestarta t{\listlevel\netrfucp16\levelfollow0\levelstartat1{\leveltext \'01\'b7}{\levelnumbers}\f1\fcs1\f1\af1\fcs0\rtlch\f1\af1\lt rch}}{\lfolevel\listoverrideformat\listoverridestartat{\listlevel\irpxmluu64\lev elfollow0\levelstartat1{\leveltext \'01\'b7}{\levelnumbers}\f1\fcs1\f1\af1\fcs0\rtlch\f1\af1\ltrch}}{\lfolevel\list overrid eformat\listoverridestartat{\listlevel\zlsidfnc72\levelfollow0\levelstartat1{\le veltext \'\'b7}{\le velnumbers}\f1\fcs1\f1\af1\fcs0\rtlch\f1\af1\ltrch}}{\lfolevel\listoverrideforma t\listoverridestartat {\listlevel\ychcojmh95\levelfollow0\levelstartat1{\leveltext \'01\'b7}{\levelnumbers}\f1\fcs1\f1\af1\ fcs0\rtlch\f1\af1\ltrch}}{\lfolevel\listoverrideformat\listoverridestartat{\list level\izxbssex44\levelfollow0\levelstartat1{\leveltext \'01\'b7}{\levelnumbers}\f1\fcs1\f1\af1\fcs0\rtlch\f1\af1\ltrch}}{\ lfolevel\listoverrideformat\listoverridestartat{\listlevel\\levelfollo w0\levelstartat1{\leveltext \'01\'b7}{\levelnumbers}\f1\fcs1\f1\af1\fcs0\rtlch\f1\af1\ltrch}}{\lfolevel\list overrideformat \listoverridestartat{\listlevel\pzggekwd88\levelfollow0\levelstartat1{\leveltext \'01\'b7}{\levelnumb ers}\f1\fcs1\f1\af1\fcs0\rtlch\f1\af1\ltrch}}\ls3}}\yolrpw59169\gqahxe51245\reyna l1800\plvbs1602\margt 1440\naovo6719\cfrelsi538\yzwogmd547\nogrowautofit\cmbyux542\formshade\nofeature throttle1\fet4\aenddo c\aftnnrlc\pgbrdrhead\pgbrdrfoot\sectd\tsywoe29862\amqtcr14207\stejiuaz9467\reyna jqrs6850\fidyyxld1865 \yizdgevw3165\\amgymcn827\sbkpage\pgncont\pgndec\plain\plain\f0\fs22\q l\plain\f0\fs22\plain \f7\fs22\par\trowd\vjtniz68\trleft0\uqxu691\clvertalt\clbrdrt\brdrs\\brdr cf11\clbrdrb\brdrs\br drw15\yugwxn48\clbrdrl\brdrs\\\clbrdrr\brdrs\\\clc bpat11\jfutx0519\clve rtalt\clbrdrt\brdrs\\hvwypl13\clbrdrb\brdrs\\\clbrdrl\brdr s\\\cl brdrr\brdrs\\\edmazhc02\wxxgb5324\pard\intbl\ssparaaux0\s0\ql\katherine in\f0\fs22\plain\f7\fs28\pija2338\hich\f7\dbch\f7\loch\f7\cf2\fs28\b\i SUBJECTIVE:\cf3\fs24\cell\pard\intbl\ssparaaux0\s0\ ri90\qr\plain\f0\fs22\plain\f7\fs24\pkey1640\hich\f7\dbch\f7\loch\f7\fs24 \cf3\b\i\cell\intbl\row\pard\plain\f0\fs22\plain\f7\fs22 CC: Hue Medina is an 37 year old woman who presents for preventive health visit. \par\par\b Healthy Habits:\plain\f7\fs22\par{\listtext\pard\plain\f1\fs22 \'b7\tab} \pard\ssparaaux0\s0\ls1\ilvl0\fi-360\li360\ql\plain\f0\fs22\plain\f7\fs22 Do you get at least three servings of calcium containing foods daily (dairy, green leafy vegetables, etc.)? yes\par{\listtext\pard\plain\f1\fs22 \'b7\tab}Amount of exercise or daily activities, outside of work: 3 day(s) per week\ par{\listtext\pard\plain\f1\fs22 \'b7\tab}Problems taking medications regularly not applicable\par{\listtext\pard\plain\f1\fs22 \'b7\tab}Medication side effects: No\par{\listtext\pard\plain\f1\fs22 \'b7 \tab}\pard\ssparaaux0\s0\ls2\ilvl0\fi-360\li360\ql\plain\f0\fs22\plain\f7\fs22 Have you had an eye exam in the past two years? no\par{\listtext\pard\plain\f1\fs22 \'b7\tab}\pard\ssparaaux0\s0\ls3\ilvl0\fi- 360\li360\ql\plain\f0\fs22\plain\f7\fs22 Do you see a dentist twice per year? yes\line\par\pard\pl ain\f0\fs22\plain\f7\fs22\kpju3566\hich\f7\dbch\f7\loch\f7\cf4\fs22 Other concerns to address:\par Irregular periods\par\cf1\b\par Today's PHQ-2 Score:\plain\f7\fs22 \ltrch 0 \plain\f7\fs22\line\par\ql\ plain\f0\fs22\plain\f7\fs22 Abuse: Current or Past(Physical, Sexual or Emotional)- NO\par Do you feel safe in your environment - YES\par\pard\plain\f0\fs22\plain\f7\fs22\par\trowd\trgaph0\trleft0\clvert alt\eimsy27872\pard\intbl\ssparaaux0\s0\ql\plain\f0\fs22\plain\f7\fs22\mlwl5516\ hich\f7\dbch\f7\loch\f7\cf1\fs22\protect{\field{\*\fldinst HYPERLINK name=LINKBEGIN [id number] 0 SOCX 1 0}{\fldrslt \'1c}}\cf6\fs18\b History\cf0\fs22\b0\cell\intbl\row\trowd\trgaph0\trleft0\clvertalt\\long [id number]\par d\intbl\ssparaaux0\s0\ql\plain\f0\fs22\plain\f7\fs18\fccj5939\hich\f7\dbch\f7\lo ch\f7\cf6\fs18\protect Substance Use Topics\cf0\fs22\cell\intbl\row\trowd\trgaph0\trleft0\clvertalt\fsewv690\clvertal t\long xr8319\clvertalt\ecgjz77035\pard\intbl\ssparaaux0\s0\qc\plain\f0\fs22\plain\f7\f s20\rjhq3353\hich\f7\dbch\f7\loch\f7\cf1\fs20\protect\u8226 \'95\cell\pard\intbl\ssparaaux0\s0\ql\plain\f0\fs22\plain\f7\f s22\frcn1100\hich\f7\dbch\f7\loch\f7\cf1\fs22\protect Smoking status:\fs20\cell\pard\intbl\ssparaaux0 \s0\ql\plain\f0\fs22\plain\f7\fs22\ejjl5821\hich\f7\dbch\f7\loch\f7\cf1\fs22\pro tect Never Smoker \fs 20\cell\intbl\row\pard\intbl\ssparaaux0\s0\qc\plain\f0\fs22\plain\f7\fs20\lang10 33\hich\f7\dbch\f7\loch\f7\cf1\fs20\protect\u8226 \'95\cell\pard\intbl\ssparaaux0\s0\ql\plain\f0\fs22\plain\f7\fs22\lang10 33\hich\f7\dbch\f7\loch\f7\cf1\fs22\protect Smokeless tobacco:\fs20\cell\pard\intbl\ssparaaux0\s0\ql\ plain\f0\fs22\plain\f7\fs22\vpjk5952\hich\f7\dbch\f7\loch\f7\cf1\fs22\protect Never Used\fs20\cell\in tbl\row\pard\intbl\ssparaaux0\s0\qc\plain\f0\fs22\plain\f7\fs20\vxvp2673\hich\f7 \dbch\f7\loch\f7\cf1\fs20\protect\u8226 \'95\cell\pard\intbl\ssparaaux0\s0\ql\plain\f0\fs22\plain\f7\fs22\rqge6136\hich\ f7\dbch\f7\loch\f7\cf1\fs22\protect Alcohol Use:\fs20\cell\pard\intbl\ssparaaux0\s0\ql\plain\f0\fs22\pl ain\f7\fs22\keta5082\hich\f7\dbch\f7\loch\f7\cf1\fs22\protect Yes\fs20\cell\intbl\row\trowd\trgaph0\t rleft0\clvertalt\uipmz304\clvertalt\vyfha309\clvertalt\\clvertalt\cellx1 0044\pard\intbl\sspar aaux0\s0\qc\plain\f0\fs22\plain\f7\fs20\ivlq4748\hich\f7\dbch\f7\loch\f7\cf1\fs2 0\protect\cell\pard\i ntbl\ssparaaux0\s0\qc\plain\f0\fs22\plain\f7\fs20\crup6035\hich\f7\dbch\f7\loch\ f7\cf1\fs20\protect\c ell\pard\intbl\ssparaaux0\s0\qc\plain\f0\fs22\plain\f7\fs20\njji0799\hich\f7\dbc h \f7\loch\f7\cf1\fs20\protect\cell\pard\intbl\ssparaaux0\s0\ql\plain\f0\fs22\plai n\f7\fs20\ketg9267\hich\f7\dbch\f7\loch\f7\cf1\fs20\i\protect very occ daquiri\i0\cell\intbl\row\pard\plain\f0\fs22\plain\ f7\fs22\esse6035\hich\f7\dbch\f7\loch\f7\cf1\fs22\protect{\field{\*\fldinst HYPERLINK name=LINKEND [id number] 0 SOCX 1 0}{\fldrslt \'1c}}\plain\f7\fs22\par\cf3\protect{\field{\*\fldinst HYPERLINK name=LIS TBEGIN 307547 0 0}{\fldrslt \'1c}}\cf0 The patient does not drink >3 drinks per day nor >7 drinks per week.\cf3{\field{\*\fldinst HYPERLINK name=LISTEND 763810 0 0}{\fldrslt \'1c}}\plain\f7\fs22\p ar\par\ql\plain\f0\fs22\plain\f7\fs22 Last Mammo:No results found.\par\par Last lipid profile: \par\pard\plain\f0\fs22\plain\f7\fs22 Total Cholesterol: \par\trowd\trgaph0\trleft0\clvertalt\lreim8252\par d\intbl\ssparaaux0\s0\ql\plain\f0\fs22\plain\f7\fs18\pchq9663\hich\f7\dbch\f7\lo ch\f7\cf6\fs18\b Chol esterol\plain\f7\fs22\cell\intbl\row\trowd\trgaph0\trleft0\clvertalt\gwoqczj57\c vtvr7616\clvertalt\cl cbpat12\psdyq7617\clvertalt\cqzisag26\yxmpt2113\clvertalt\axbeqdb96\gmmky1868\pa rd\intbl\ssparaaux0\s 0\ql\plain\f0\fs22\plain\f7\fs18\rfsu8566\hich\f7\dbch\f7\loch\f7\cf6\fs18 Date\plain\f7\fs22\cell\pa rd\intbl\ssparaaux0\s0\ql\plain\f0\fs22\plain\f7\fs18\jgfn2855\hich\f7\dbch\f7\l och\f7\cf6\fs18 Value \plain\f7\fs22\cell\pard\intbl\ssparaaux0\s0\ql\plain\f0\fs22\plain\f7\fs18\lang 1033\hich\f7\dbch\f7\loch\f7\cf6\fs18 Range\plain\f7\fs22\cell\pard\intbl\ssparaaux0\s0\ql\plain\f0\fs22\plain\f7\fs18 \jedh0548\hich\f7\dbch\f7\loch\f7\cf6\fs18 Status\plain\f7\fs22\cell\intbl\row\trowd\trgaph0\trleft0\clve rtalt\kndsl4944\clvertalt\leohh0373\clvertalt\wuqcs2456\clvertalt\hxtyq0948\pard \intbl\ssparaaux0\s0\ql\plain\f0\fs22\plain\f7\fs22 08/02/2011\cell\pard\intbl\ssparaaux0\s0\ql\plain\f0\fs22\plain\f7\fs20\ mroi8720\hich\f7\dbch\f7\loch\f7\cf8\fs20 207*\cf0\cell\pard\intbl\ssparaaux0\s0\ql\plain\f0\fs22\plain\f7\fs22 0 - 200 mg/dL\fs20\cell\pard\intbl\ssparaaux0\s0\ql\plain\f0\fs22\plain\f7\fs22 Final\fs20 \cell\intbl\row\trowd\trgaph0\trleft0\clvertalt\qqwjb1082\pard\intbl\ssparaaux0\ s0\ql\plain\f0\fs22\plain\f7\fs20\cbpn5679\hich\f7\dbch\f7\loch\f7\cf1\fs20\i LDL Cholesterol is the primary guide to ther apy.\i0\cell\intbl\row\pard\intbl\ssparaaux0\s0\ql\plain\f0\fs22\plain\f7\fs20\l gtd3321\hich\f7\dbch\f7\loch\f7\cf1\fs20\i The NCEP recommends further evaluation of: patients with cholesterol greater\i0 \cell\intbl\row\pard\intbl\ssparaaux0\s0\ql\plain\f0\fs22\plain\f7\fs20\zuku6879 \hich\f7\dbch\f7\loch\f7\cf1\fs20\i than 200 mg/dL if additional risk factors are present, cholesterol greater \i0\cell\in tbl\row\pard\intbl\ssparaaux0\s0\ql\plain\f0\fs22\plain\f7\fs20\wrzj8750\hich\f7 \dbch\f7\loch\f7\cf1\fs20\i than\i0\cell\intbl\row\pard\intbl\ssparaaux0\s0\ql\plain\f0\fs22\plain\f7\fs20\l xhe8377\hich\f7\dbch\f7\loch\f7\cf1\fs20\i 240 mg/dL, triglycerides greater than 150 mg/dL, or HDL less than 40 mg/ dL.\i0\cell\intbl\row\pard\ssparaaux0\s0\ql\plain\f0\fs22\plain\f7\fs22\par\pard \plain\f0\fs22\plain\f7\fs22 LDL Cholesterol: \par\trowd\trgaph0\trleft0\clvertalt\ixgni7096\pard\intbl\ssparaaux0\s0\ql\p racquel\f0\fs22\plain\f7\fs18\agee3725\hich\f7\dbch\f7\loch\f7\cf6\fs18\b LDL Cholesterol Calculated\katherine in\f7\fs22\cell\intbl\row\trowd\trgaph0\trleft0\clvertalt\fazakjr02\mpgpo4789\cl vertalt\dstmewo67\long cj6744\clvertalt\\predc0652\clvertalt\fvzhefh30\qctko6997\pard\intbl\ss paraaux0\s0\ql\plain\ f0\fs22\plain\f7\fs18\okaq3835\hich\f7\dbch\f7\loch\f7\cf6\fs18 Date\plain\f7\fs22\cell\pard\intbl\ss paraaux0\s0\ql\plain\f0\fs22\plain\f7\fs18\bobs2090\hich\f7\dbch\f7\loch\f7\cf6\ fs18 Value\plain\f7\f s22\cell\pard\intbl\ssparaaux0\s0\ql\plain\f0\fs22\plain\f7\fs18\owgg4316\hich\f 7\dbch\f7\loch\f7\cf6\fs18 Range\plain\f7\fs22\cell\pard\intbl\ssparaaux0\s0\ql\plain\f0\fs22\plain\f7\fs18 \suwx2004\hich\f7\dbch\f7\loch\f7\cf6\fs18 Status\plain\f7\fs22\cell\intbl\row\trowd\trgaph0\trleft0\clvertalt\cellx 2160\clvertalt\gfrxd7741\clvertalt\tdqxd7011\clvertalt\tgxou8711\pard\intbl\sspa raaux0\s0\ql\plain\f0\fs22\plain\f7\fs22 08/02/2011\cell\pard\intbl\ssparaaux0\s0\ql\plain\f0\fs22\plain\f7\fs20\bpok4120\h ich\f7\dbch\f7\loch\f7\cf8\fs20 137*\cf0\cell\pard\intbl\ssparaaux0\s0\ql\plain\f0\fs22\plain\f7\fs220 - 129 mg/dL\fs20\cell\pard\intbl\ssparaaux0\s0\ql\plain\f0\fs22\plain\f7\fs22 Final\fs20\cell\intbl \row\trowd\trgaph0\trleft0\clvertalt\yngnb2366\pard\intbl\ssparaaux0\s0\ql\plain \f0\fs22\plain\f7\fs20\wrbl7365\hich\f7\dbch\f7\loch\f7\cf1\fs20\i LDL Cholesterol is the primary guide to therapy: LDL-cholesterol goal in high\i0\cell\intbl\row\pard\intbl\ssparaaux0\s0\ql\plain\f0\fs22\plain\f7\fs20\l men7775\hich\f7\dbch\f7\loch\f7\cf1\fs20\i risk patients is <100 mg/dL and in very high risk patients is <70 mg/dL.\i0\cell\intbl\row\pard\ssparaaux0\s0\ql\plain\f0\fs22\plain\f7\fs22\par\p casper\plain\f0\fs22\plain\f7\fs22 HDL Cholesterol: \par\trowd\trgaph0\trleft0\clvertalt\njjbp9156\pard\intbl\sspa raaux0\s0\ql\plain\f0\fs22\plain\f7\fs18\uwqm4868\hich\f7\dbch\f7\loch\f7\cf6\fs 18\b HDL Cholesterol\ plain\f7\fs22\cell\intbl\row\trowd\trgaph0\trleft0\clvertalt\kdltduk26\dzzxv3828 \clvertalt\vnopmpq25\ cdlui4469\clvertalt\syvuqgz19\qibzs2566\clvertalt\ewiucsp46\bzeyi1472\pard\intbl \ssparaaux0\s0\ql\katherine in\f0\fs22\plain\f7\fs18\vnoy8261\hich\f7\dbch\f7\loch\f7\cf6\fs18 Date\plain\f7\fs22\cell\pard\intbl \ssparaaux0\s0\ql\plain\f0\fs22\plain\f7\fs18\gmde4092\hich\f7\dbch\f7\loch\f7\c f6\fs18 Value\plain\f 7\fs22\cell\pard\intbl\ssparaaux0\s0\ql\plain\f0\fs22\plain\f7\fs18\wwdz4289\hic h\f7\dbch\f7\loch\f7\cf6\fs18 Range\plain\f7\fs22\cell\pard\intbl\ssparaaux0\s0\ql\plain\f0\fs22\plain\f7\fs18 \bnui7961\hich\f7\dbch\f7\loch\f7\cf6\fs18 Status\plain\f7\fs22\cell\intbl\row\trowd\trgaph0\trleft0\clvertalt\ce hsb6245\clvertalt\izobd5962\clvertalt\cvlsm0594\clvertalt\bopol9196\pard\intbl\s sparaaux0\s0\ql\plain\f0\fs22\plain\f7\fs22 08/02/2011\cell\pard\intbl\ssparaaux0\s0\ql\plain\f0\fs22\plain\f7\fs20\fyil5632 \hich\f7\dbch\f7\loch\f7\cf8\fs20 42*\cf0\cell\pard\intbl\ssparaaux0\s0\ql\plain\f0\fs22\plain\f7\fs22 50 - 110 mg/dL\fs20\cell\pard\intbl\ssparaaux0\s0\ql\plain\f0\fs22\plain\f7\fs22 Final\fs20\cell\in tbl\row\pard\ssparaaux0\s0\ql\plain\f0\fs22\plain\f7\fs22\par\pard\plain\f0\fs22 \plain\f7\fs22\par Reviewed orders with patient. Reviewed health maintenance and updated orders accordingly - Yes\par\parHistory of abnormal Pap smear: NO - age 30- 65 PAP every 3 years recommended\par All Histories reviewed and updated in Epic.\par\par\b ROS:\plain\f7\fs22\par\par\par\par\trowd\\trleft0\uemd311\c lvertalt\clbrdrt\brdrs\\jwrnlu70\clbrdrb\brdrs\\xntetz22\clbrdrl\b rdrs\\pyywre46 \clbrdrr\brdrs\\reqwzs34\vlaxcdx97\qwylq5462\clvertalt\clbrdrt\brdrs\brdr w15\rjcsaw55\clbrdrb\ brdrs\\\clbrdrl\brdrs\\dslofz86\clbrdrr\brdrs\\brdr cf11\swtyeii94\cellx9 720\pard\intbl\ssparaaux0\s0\ql\plain\f0\fs22\plain\f7\fs28\ldtg8247\hich\f7\dbc h\f7\loch\f7\cf2\fs28\b\i OBJECTIVE:\cf3\fs24\cell\pard\intbl\ssparaaux0\s0\ri90\qr\plain\f0\fs22\plain\f7 \fs24\zyfr7561\hich\f7\dbch\f7\loch\f7\fs24 \cf3\b\i\cell\intbl\row\pard\ssparaaux0\s0\ql\plain\f0\fs22\plain\f7\fs22 \gqiu3378\hich\f7\dbch\f7\loch\f7\cf1\fs22\protect{\field{\*\fldinst HYPERLINK name=LINKBEGIN 550473 1 VS 0}{\fldrslt \'1c}}There were no vitals taken for this visit.{\field{\*\fldinst HYPERLINK name=LINKEND 160941 1 VS 0}{\fldrslt \'1c}}\plain\f7\fs22 \protect{\field{\*\fldinst HYPERLINK name=LI NKBEGIN 304109 2 BMIHIS 0}{\fldrslt \1c}}Estimated Body mass index is 33.81 kg/(m`2) as calculated from the following:\par Height as of 11/08/11: 4' 9.5(1.461 m).\par\pard\ssparaaux0\s0\ltrpar\ql\wi dctlpar\plain\f0\fs22\plain\f7\fs22\lcad7339\hich\f7\dbch\f7\loch\f7\cf1\fs22\pr otect Weight as of 03/05/12: 159 lb(72.122 kg).{\field{\*\fldinst HYPERLINK name=LINKEND 785627 2 BMIHIS 0}{\fldrslt \'1 c}}\plain\f7\fs22\par\pard\ssparaaux0\s0\ql\plain\f0\fs22\plain\f7\fs22\par\pard \plain\f0\fs22\plain\f7\fs22\par\cf3\sshlink\ul{\field{\*\fldinst HYPERLINK http://www.nhlbi.nih.gov/guidelines/cholesterol/index.htm}{\fldrslt ATP III Guidelines}}\plain\f7\fs22\par\cf3\sshlink\ul{\field{\*\fldinst HYPERLINK www.jacek.ac.uk\\frax}{\fldrslt FRAX Risk Assessment}}\plain\f7\fs22\par\cf3\sshlink\ul{\field{\*\fldinst HYPERLINK http://www.icsi.org/guidelines_and_more/gl_os_prot/preventive_health_maintenanc e/preventive_services_for_adults/preventive_services_for_adults__11.html}{\fldrs lt ICSI Preventive Gu idelines}}\plain\f7\fs22\par\ql\plain\f0\fs22\plain\f7\fs22\par\trowd\vwafnc49\t rleft0\iytq886\clvert alt\clbrdrt\brdrs\\\clbrdrb\brdrs\\kkvdwa51\clbrdrl\brdrs\ \rapzur33\clbr drr\brdrs\\xnlodi07\tukrsoa50\ebezj3369\clvertalt\clbrdrt\brdrs\\b \clbrdrb\brdrs \\qpksez97\clbrdrl\brdrs\\zmurhi22\clbrdrr\brdrs\\lrfiwq49\ cpfrzag78\gpipe2742\p casper\intbl\ssparaaux0\s0\ql\plain\f0\fs22\plain\f7\fs28\xisb7829\hich\f7\dbch\f7\ loch\f7\cf2\fs28\b\i ASSESSMENT/PLAN:\cf3\fs24\cell\pard\intbl\ssparaaux0\s0\ri90\qr\plain\f0\fs22\pl ain\f7\fs24\hnio2751\hich\f7\dbch\f7\loch\f7\fs24 \cf3\b\i\cell\intbl\row\pard\ssparaaux0\s0\ql\plain\f0\fs22\plain\f7\fs2 2\par\pard\plain\f0\fs22\plain\f7\fs22\par\b Counseling:\par\ql\plain\f0\fs22\plain\f7\fs22\pylj4966\ hich\f7\dbch\f7\loch\f7\cf3\fs22\sshlink\ul{\field{\*\fldinst HYPERLINK http://www.[employer].gov/[employer]is Pharmaceuticalscker-tools/rraul-ocli-tornx.html}{\fldrslt Dietary Guidelines for Americans, 2009}}\plain\f7\ fs22\par\cf3\sshlink\ul{\field{\*\fldinst HYPERLINK http://www.[employer].gov/}{\fldrslt USDA's My Plate}}\cf1\b\sshlink0\ul0\par\pard\plain\f0\fs22\plain\f7\fs22\par\ql\plain\f0\ fs22\plain\f7\fs22\pa r\pard\plain\f0\fs22\plain\f7\fs22\fdqv9849\hich\f7\dbch\f7\loch\f7\cf1\fs22\pro tect{\field{\*\fldinst HYPERLINK name=LINKBEGIN 661 3 TOBHXP 1 0}{\fldrslt \'1c}} reports that she has never smoked. She has never used smokeless tobacco.{\field{\*\fldinst HYPERLINK name=LINKEND 661 3 TOBHXP 1 0}{\fldrslt \'1c}}\plain\f7\fs22\line\par\ql\plain\f0\fs22\plain\f7\fs16\uxtm6962\hich\f7\db ch\f7\loch\f7\cf1\fs16\protect{\field{\*\fldinst HYPERLINK name=LINKBEGIN 219 4 BMIE 1 0}{\fldrslt \'1c}}Estimated Body mass index is 33.81 kg/(m`2) as calculated from the following:\par Height as of 12: 4' 9.5(1.461 m).\par\pard\plain\f0\fs22\plain\f7\fs16\gkdj2130\hich\f7\dbch\f7\loch\f7\cf1\fs 16\protect Weight as of 03/05/12: 159 lb(72.122 kg).{\field{\*\fldinst HYPERLINK name=LINKEND 219 4 BMIE 1 0}{\fldrslt \'1c}}\protect0 \plain\f7\fs22\par\par\par Chenita M Scott\par\ltrch [facility] [place]\plain\f7\fs22\par\ql\plain\f0\fs22\plain\f7\fs22\jhge7454\hich\f7\dbch\f7 \loch\f7\cf1\fs22\protect{\field{\*\fldinst HYPERLINK name=BLOCKBEGIN 62611 5 SFHPI }{\fldrslt \'1c}}HPI{\field{\*\fldinst HYPERLINK name=BLOCKEND 37052 5 SFHPI }{\fldrslt \'1c}}\plain\f7\fs22\par\par\par\protect {\field{\*\fldinst HYPERLINK name=BLOCKBEGIN 147 6 REVIEWOFSYSTEMS }{\fldrslt \'1c}}ROS{\field{\*\fldinst HYPERLINK name=BLOCKEND 147 6 REVIEWOFSYSTEMS }{\fldrslt \'1c}}\plain\f7\fs22\par\par\par\protect{\field{\*\fldinst HYPERLINK name=BLOCKBEGIN 148 7 PHYSICALEXAM }{\fldrslt \'1c}}Physical Exam{\fiel d{\*\fldinst HYPERLINK name=BLOCKEND 148 7 PHYSICALEXAM }{\fldrslt \'1c}}\plain\f7\fs22\par\par\ltrch\par\plain\f7\fs22\par\ltrch\v SMARTLIST_METADATA_BEGIN 489607 0=1:: SMARTLIST_METADATA_END WILDCARD_ METADATA_BEGIN WILDCARD_METADATA_END PLACEHOLDER_METADATA_BEGIN 0\{ETOH AUDIT:052116\} PLACEHOLDER_METADATA_END GRAMMAR_METADATA_BEGIN GRAMMAR_METADATA_END AUTOREFRESH_METADATA_BEGIN AUTOREFRESH_METADATA_END} Source: [facility] RWHXTRANSXRTFSYS Document Id: [id number] Phoebe Scott M.D. - 08/02/2012 3:30 PM CST [id number] SUBJECTIVE: Hue Medina is a 37 year old G0 who presents for her annual well woman exam. She has a menstrual period approximately every 21 days. No menometrorrhagia or dysmenorrhea. The patient has a good appetite, no early satiety or abdominal bloating. No vaginal discharge. No vulvar or vaginal lesions/ itching. The patient has never been sexually active. The patient does not desire STD screening today. She is accompanied by her mother today. Pt occasionally has blood in her stool. Past Medical History Diagnosis Date Down's syndrome Ostium secundum type atrial septal defect Mitral valve disorders cleft mitral valve Cellulitis and abscess of leg, except foot 01/15/00 L lower leg Phlebitis and thrombophlebitis of other deep vessels of lower extremities 06/08/07 Family History Problem Relation Age of Onset Cancer Maternal Aunt 59 breast Thyroid Maternal Aunt several maternal aunts Anesthesia No family hx of Blood Disease No family hx of Neurological No family hx of Cardiovascular Maternal Uncle anurism and a bulge on aorta at age 64 Colon CA No family hx of Endometrial Cancer No family hx of Ovarian Cancer No family hx of Past Surgical History Procedure Date general surg (abstracted) 01/15/00 I & D w debridement, L thigh and leg cellulitis/abscess Current Outpatient Prescriptions Medication warfarin (COUMADIN) 5 MG tablet PERIOSTAT 20 MG OR TABS NEW MED CALCIUM + D OR Allergies Allergen Reactions Bees Chloramphenicol Quinolones ciloxan eye tts History Substance Use Topics Smoking status: Never Smoker Smokeless tobacco: Never Used Alcohol Use: Yes 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 The patient is not sexually active. Ob History: G0. Review Of Systems: Per HPI OBJECTIVE: BP 102/68 Ht 1.461 m (4' 9.5) Wt 74.844 kg (165 lb) BMI 35.09 kg/m2 General appearance: No acute distress, alert and oriented X 3 Neck: Supple, no thyromegaly CV: Regular rate and rhythm without murmurs gallops or rubs Resp: Clear to auscultation bilaterally, no wheezing or rales Abd: Soft, non-tender, non-distended, positive bowel sounds. Ext: No clubbing, cyanosis or edema Breast: No gross abnormalities. No masses. No nipple discharge or nipple retractions. No axillary lymphadenopathy. Pelvic: Patient and her mother declined the exam ASSESSMENT: Satisfactory annual obstetrician gynecologist exam Blood in stool PLAN: Dx: 1) Patient refuses a pelvic exam/ Pap smear today (pt had a negative pap smear in 2010). We will perform a pelvic US, but her mother understands that an ultrasound cannot evaluate a cervical cancer. Additionally, a pelvic US is not designed to take the place of a pelvic exam. 2) Lipids/ Glucose/ TSH/CBC ordered 3) Pt to follow up with her PCP regarding the blood in her stool. The importance of regular follow up was discussed with the patient and her mother who voiced understanding. 4) Pt to follow up with PCP for co-morbidities PE: Reviewed health maintenance including diet, regular exercise and periodic exams. Source: [facility] Document Id: [id number] Electronically signed by Conversion, [facility] Chief Petroleum Engineer [id number] at 11/21/2016 12:49 PM CDT documented in this encounter Miscellaneous Notes Miscellaneous - Phoebe Scott M.D. - 08/02/2012 3:30 PM CST [id number] August 07, 2012 Hue Bellamy Carol [address] [facility] [id number] Your doctor has requested to have you return for a CBC, Lipid, Glucose, and TSH test at this time. You may call our office at [phone] in Obstetrics/Gynecology to schedule an appointment. Please ask to schedule a LAB APPOINTMENT Please disregard this notice if you already have had this lab repeated or have already made an appointment. Sincerely, Ashlee Ghotra Source: [facility] Document Id: [id number] Electronically signed by Conversion, [facility] Chief Petroleum Engineer [id number] at 11/21/2016 12:49 PM CDT documented in this encounter Plan of Treatment Not on filedocumented as of this encounter Visit Diagnoses Not on filedocumented in this encounter
--- OUTSIDE RECORDS SUMMARY | 2022-04-25 16:07 | XMS_ITS | Encounter Summary ---
:1975 Author Organization [facility] Address [address] [place] [id number] Care Team Providers Name Role Phone Unavailable Primary Care Provider Unavailable Encounter Details Date Type Department Care Team Description 10/25/2012 Hospital Encounter HX [facility] Provider, His torical Social History Tobacco Use Types Packs/Day Years Used Date Smoking Tobacco: Never Assessed Sex Assigned at Date Recorded Not on file documented as of this encounter Plan of Treatment Not on filedocumented as of this encounter Procedures Procedure Name Priority Date/Time Associated Comments Diagnosis PROTHROMBIN TIME Routine 10/25/2012 11:11 Results for this (PT), P AM CDT procedure are i n the results section. documented in this encounter Results PT (Prothrombin Time) with INR (10/25/2012 11:11 AM CDT) P athologist Signature INR 2.44 [facility] Specimen (Source) Anatomical Collection Method Collection Time Re ceived Time Location / / Volume Laterality 10/25/2012 11:11 AM CDT Historical Provider LAB BLOOD ADD-ON Performing Organization Address City/State/ZIP Code Phon e Number [facility] documented in this encounter Visit Diagnoses Not on filedocumented in this encounter
--- OUTSIDE RECORDS SUMMARY | 2022-04-25 16:07 | XMS_ITS | Encounter Summary ---
:1975 Author Organization [facility] Address [address] [place] [id number] Care Team Providers Name Role Phone Unavailable Primary Care Provider Unavailable Encounter Details Date Type Department Care Team Description 02/19/2013 Hospital Encounter HX NO MAPPING Bernie Valenzuela, F.N.P. [address] [place], [place] [phone] (Wo rk) Social History Tobacco Use Types Packs/Day Years Used Date Smoking Tobacco: Never Assessed Sex Assigned at Date Recorded Not on file documented as of this encounter Progress Notes Bernie Valenzuela - 02/19/2013 7:00 PM CDT [id number] SUBJECTIVE: Hue presents to Urgent Care with her father today. They noticed a red spot to her right lower leg. They noted it was warm to the touch. They are concerned that it was infected, so they thought they better bring her in. They deny that it is more swollen to the area as she does have swelling in both of her legs normally. They deny any bug bites. She denies any pain, any fever. She is on Coumadin currently due to a past history of having a blood clot. She denies any trauma or any injury. She denies any chest pain, shortness of breath, any bloody sputum. OBJECTIVE: VITAL SIGNS: As noted in Epic, afebrile. GENERAL: The patient is an alert and oriented female in no acute distress. CHEST: Chest rises and falls symmetrically with no signs of respiratory distress. LUNGS: Lungs sound clear bilaterally. HEART: Heart is regular S1-S2. MOUTH: Mucous membranes are pink and moist. LOWER EXTREMITY: Right lower extremity has a red area that is warm to the touch. Nontender to the touch. Skin is intact. There is no drainage noted. No palpable masses are noted. Negative Kayla's sign. DIAGNOSTICS: CBC within normal limits. D-dimer is negative. INR is 1.86. This was forwarded on to the INR Clinic. Comprehensive panel: Creatinine is 1.2, GFR 50. ASSESSMENT: Cellulitis of the right lower leg. PLAN: Keflex as prescribed in Epic. Like I side before INR Clinic was informed that patient was placed on an antibiotic as well as having an infection and of her current INR. Instructed if not getting better in a few days or any other concerning symptoms to follow up. The patient and the patient's father are in agreement with this plan. MARLENY Carter/basim Source: [facility] [id number] Document Id: [id number] Electronically signed by Conversion, [facility] [employer] [id number] at 11/21/2016 4:59 PM CDT documented in this encounter Plan of Treatment Not on filedocumented as of this encounter Procedures Procedure Name Priority Date/Time Associated Comments Diagnosis HX UREA NITROGEN Routine 02/19/2013 7:31 Results for this PM CDT procedure are i n the results section. HX AGAP Routine 02/19/2013 7:31 Results for this PM CDT procedure are i n the results section. CREATININE WITH EGFR, P Routine 02/19/2013 7:31 R esults for this PM CDT procedure are i n the results section. CREATININE WITH EGFR, P Routine 02/19/2013 7:31 R esults for this PM CDT procedure are i n the results section. ALANINE AMINOTRANSFERASE Routine 02/19/2013 7:31 Results for this (ALT), S/P PM CDT procedure are i n the results section. ASPARTATE Routine 02/19/2013 7:31 Results for this AMINOTRANSFERASE (AST), PM CDT proc edure are in S/P the results section. SODIUM, S/P Routine 02/19/2013 7:31 Results for this PM CDT procedure are i n the results section. POTASSIUM, S/P Routine 02/19/2013 7:31 Results fo r this PM CDT procedure are i n the results section. ALKALINE PHOSPHATASE, Routine 02/19/2013 7:31 Res ults for this S/P PM CDT procedure are i n the results section. GLUCOSE, RANDOM, S/P Routine 02/19/2013 7:31 Resu lts for this PM CDT procedure are i n the results section. CREATININE WITH EGFR, Routine 02/19/2013 7:31 Res ults for this S/P PM CDT procedure are i n the results section. CHLORIDE, S/P Routine 02/19/2013 7:31 Results for this PM CDT procedure are i n the results section. BICARBONATE, B/S/P Routine 02/19/2013 7:31 Result s for this PM CDT procedure are i n the results section. CALCIUM, TOT, S/P Routine 02/19/2013 7:31 Results for this PM CDT procedure are i n the results section. BILIRUBIN, TOT, S/P Routine 02/19/2013 7:31 Resul ts for this PM CDT procedure are i n the results section. ALBUMIN, S/P Routine 02/19/2013 7:31 Results for this PM CDT procedure are i n the results section. ACTIVATED PARTIAL Routine 02/19/2013 7:30 Results for this THROMBOPLASTIN TIME PM CDT procedur e are in (APTT), P the results section. PROTHROMBIN TIME (PT), P Routine 02/19/2013 7:30 Results for this PM CDT procedure are i n the results section. D-DIMER, P Routine 02/19/2013 7:30 Results for this PM CDT procedure are i n the results section. RBC SYSMEX Routine 02/19/2013 7:24 Results for this PM CDT procedure are i n the results section. RBC SYSMEX Routine 02/19/2013 7:24 Results for this PM CDT procedure are i n the results section. RBC SYSMEX Routine 02/19/2013 7:24 Results for this PM CDT procedure are i n the results section. RBC SYSMEX Routine 02/19/2013 7:24 Results for this PM CDT procedure are i n the results section. AUTOMATED DIFFERENTIAL, Routine 02/19/2013 7:24 R esults for this B PM CDT procedure are i n the results section. AUTOMATED DIFFERENTIAL, Routine 02/19/2013 7:24 R esults for this B PM CDT procedure are i n the results section. AUTOMATED DIFFERENTIAL, Routine 02/19/2013 7:24 R esults for this B PM CDT procedure are i n the results section. AUTOMATED DIFFERENTIAL, Routine 02/19/2013 7:24 R esults for this B PM CDT procedure are i n the results section. AUTOMATED DIFFERENTIAL, Routine 02/19/2013 7:24 R esults for this B PM CDT procedure are i n the results section. AUTOMATED DIFFERENTIAL, Routine 02/19/2013 7:24 R esults for this B PM CDT procedure are i n the results section. AUTOMATED DIFFERENTIAL, Routine 02/19/2013 7:24 R esults for this B PM CDT procedure are i n the results section. AUTOMATED DIFFERENTIAL, Routine 02/19/2013 7:24 R esults for this B PM CDT procedure are i n the results section. AUTOMATED DIFFERENTIAL, Routine 02/19/2013 7:24 R esults for this B PM CDT procedure are i n the results section. AUTOMATED DIFFERENTIAL, Routine 02/19/2013 7:24 R esults for this B PM CDT procedure are i n the results section. AUTOMATED DIFFERENTIAL, Routine 02/19/2013 7:24 R esults for this B PM CDT procedure are i n the results section. AUTOMATED DIFFERENTIAL, Routine 02/19/2013 7:24 R esults for this B PM CDT procedure are i n the results section. AUTOMATED DIFFERENTIAL, Routine 02/19/2013 7:24 R esults for this B PM CDT procedure are i n the results section. PLATELETS, B Routine 02/19/2013 7:24 Results for this PM CDT procedure are i n the results section. CBC WITH DIFFERENTIAL, B Routine 02/19/2013 7:24 Results for this PM CDT procedure are i n the results section. CBC WITH DIFFERENTIAL, B Routine 02/19/2013 7:24 Results for this PM CDT procedure are i n the results section. HEMOGLOBIN, B Routine 02/19/2013 7:24 Results for this PM CDT procedure are i n the results section. HEMATOCRIT, B Routine 02/19/2013 7:24 Results for this PM CDT procedure are i n the results section. documented in this encounter Results AST (Aspartate Aminotransferase) (02/19/2013 7:31 PM CDT) [facility] Method Time Signature Aspartate 31 UL [facility] Aminotransferase [facility] S LAB Specimen (Source) Anatomical Collection Method Collection Time Re ceived Time Location / / Volume Laterality 02/19/2013 7:31 PM CDT Historical Provider LAB BLOOD ADD-ON Performing Organization Address City/State/ZIP Code Phon e Number [facility] LAB ALT (Alanine Aminotransferase) (02/19/2013 7:31 PM CDT) P athologist Signature Alanine 28 UL [facility] Amniotransferas [facility] SYSTEM e, LD LAB Specimen (Source) Anatomical Collection Method Collection Time Re ceived Time Location / / Volume Laterality 02/19/2013 7:31 PM CDT Historical Provider LAB BLOOD ADD-ON Performing Organization Address City/State/ZIP Code Phon e Number [facility] Alkaline Phosphatase (02/19/2013 7:31 PM CDT) P athologist Signature Alkaline 80 UL [facility] Phosphatase, S [facility] LAB Specimen (Source) Anatomical Collection Method Collection Time Re ceived Time Location / / Volume Laterality 02/19/2013 7:31 PM CDT Historical Provider LAB BLOOD ADD-ON Performing Organization Address City/State/ZIP Code Phon e Number [facility] LAB Albumin (02/19/2013 7:31 PM CDT) P athologist Signature Albumin, S 4.1 GMDL [facility] LAB Specimen (Source) Anatomical Collection Method Collection Time Re ceived Time Location / / Volume Laterality 02/19/2013 7:31 PM CDT Historical Provider LAB BLOOD ADD-ON Performing Organization Address City/State/ZIP Code Phon e Number [facility] LAB Bilirubin, Total (02/19/2013 7:31 PM CDT) P athologist Signature Bilirubin, 0.6 MGDL [facility] Total, S [facility] LAB Specimen (Source) Anatomical Collection Method Collection Time Re ceived Time Location / / Volume Laterality 02/19/2013 7:31 PM CDT Historical Provider LAB BLOOD ADD-ON Performing Organization Address City/State/ZIP Code Phon e Number [facility] LAB Calcium, Total (02/19/2013 7:31 PM CDT) P athologist Signature Calcium, Total, 9.3 MGDL [facility] LAB Specimen (Source) Anatomical Collection Method Collection Time Re ceived Time Location / / Volume Laterality 02/19/2013 7:31 PM CDT Historical Provider LAB BLOOD ADD-ON Performing Organization Address City/State/ZIP Code Phon e Number [facility] Creatinine with Estimated GFR (MDRD), Plasma (02/19/2013 7:31 PM CDT) P athologist Signature eGFR 61 [id number] [facility] Black/ [facility] [place] LAB Specimen (Source) Anatomical Collection Method Collection Time Re ceived Time Location / / Volume Laterality 02/19/2013 7:31 PM CDT Historical Provider LAB BLOOD ADD-ON Performing Organization Address City/State/ZIP Code Phon e Number [facility] Creatinine with Estimated GFR (MDRD), Plasma (02/19/2013 7:31 PM CDT) P athologist Signature HXeGFR (MDRD) 50 [id number] [facility] LAB Specimen (Source) Anatomical Collection Method Collection Time Re ceived Time Location / / Volume Laterality 02/19/2013 7:31 PM CDT Historical Provider LAB BLOOD ADD-ON Performing Organization Address City/State/ZIP Code Phon e Number [facility] Creatinine with Estimated GFR (MDRD) (02/19/2013 7:31 PM CDT) P athologist Signature Creatinine 1.20 MGDL [facility] LAB Specimen (Source) Anatomical Collection Method Collection Time Re ceived Time Location / / Volume Laterality 02/19/2013 7:31 PM CDT Historical Provider LAB BLOOD ADD-ON Performing Organization Address City/State/ZIP Code Phon e Number [facility] HX UREA NITROGEN (02/19/2013 7:31 PM CDT) P athologist Signature Urea Nitrogen, 15 MGDL [facility] 24 HR, U [facility] LAB Specimen (Source) Anatomical Collection Method Collection Time Re ceived Time Location / / Volume Laterality 02/19/2013 7:31 PM CDT Historical Provider LAB HISTORICAL ORDERS Performing Organization Address City/State/ZIP Code Phon e Number [facility] Glucose, Random (02/19/2013 7:31 PM CDT) P athologist Signature Glucose 95 MGDL [facility] LAB Specimen (Source) Anatomical Collection Method Collection Time Re ceived Time Location / / Volume Laterality 02/19/2013 7:31 PM CDT Historical Provider LAB BLOOD TROPONIN Performing Organization Address City/State/ZIP Code Phon e Number [facility] HX AGAP (02/19/2013 7:31 PM CDT) P athologist Signature Anion Gap 13 MMOLL [facility] LAB Specimen (Source) Anatomical Collection Method Collection Time Re ceived Time Location / / Volume Laterality 02/19/2013 7:31 PM CDT Historical Provider LAB HISTORICAL ORDERS Performing Organization Address City/State/ZIP Code Phon e Number [facility] Bicarbonate (02/19/2013 7:31 PM CDT) P athologist Signature HX Carbon 28 MMOLL [facility] Dioxide [facility] LAB Specimen (Source) Anatomical Collection Method Collection Time Re ceived Time Location / / Volume Laterality 02/19/2013 7:31 PM CDT Historical Provider LAB BLOOD ADD-ON Performing Organization Address City/State/ZIP Code Phon e Number [facility] Chloride (02/19/2013 7:31 PM CDT) P athologist Signature Chloride, S 101 MMOLL [facility] LAB Specimen (Source) Anatomical Collection Method Collection Time Re ceived Time Location / / Volume Laterality 02/19/2013 7:31 PM CDT Historical Provider LAB BLOOD ADD-ON Performing Organization Address City/State/ZIP Code Phon e Number [facility] Potassium, S (02/19/2013 7:31 PM CDT) P athologist Signature Potassium, S 3.9 MMOLL [facility] LAB Specimen (Source) Anatomical Collection Method Collection Time Re ceived Time Location / / Volume Laterality 02/19/2013 7:31 PM CDT Historical Provider LAB BLOOD ADD-ON Performing Organization Address City/State/ZIP Code Phon e Number [facility] Sodium (02/19/2013 7:31 PM CDT) P athologist Signature Sodium, S 141 MMOLL [facility] LAB Specimen (Source) Anatomical Collection Method Collection Time Re ceived Time Location / / Volume Laterality 02/19/2013 7:31 PM CDT Historical Provider LAB BLOOD ADD-ON Performing Organization Address City/State/ZIP Code Phon e Number [facility] APTT (Activated Partial Thromboplastin Time) (02/19/2013 7:30 PM CDT) P athologist Signature Prothrombin 32 SECONDS [facility] Time, P [facility] LAB Specimen (Source) Anatomical Collection Method Collection Time Re ceived Time Location / / Volume Laterality 02/19/2013 7:30 PM CDT Historical Provider LAB BLOOD ADD-ON Performing Organization Address City/State/ZIP Code Phon e Number [facility] PT (Prothrombin Time) with INR (02/19/2013 7:30 PM CDT) P athologist Signature INR 1.86 [facility] LAB Specimen (Source) Anatomical Collection Method Collection Time Re ceived Time Location / / Volume Laterality 02/19/2013 7:30 PM CDT Historical Provider LAB BLOOD ADD-ON Performing Organization Address City/State/ZIP Code Phon e Number [facility] D-Dimer (02/19/2013 7:30 PM CDT) P athologist Signature D-Dimer, P <0.3 MCGMLFEU [facility] LAB Specimen (Source) Anatomical Collection Method Collection Time Re ceived Time Location / / Volume Laterality 02/19/2013 7:30 PM CDT Historical Provider LAB BLOOD ADD-ON Performing Organization Address City/State/ZIP Code Phon e Number [facility] Automated Differential (02/19/2013 7:24 PM CDT) P athologist Signature HXGranulo 0.0 109L [facility] Spec[facility] (Source) Anatomical Collection Method Collection Time Re ceived Time Location / / Volume Laterality 02/19/2013 7:24 PM CDT Historical Provider LAB BLOOD ADD-ON Performing Organization Address City/State/ZIP Code Phon e Number [facility] Automated Differential (02/19/2013 7:24 PM CDT) P athologist Signature Absolute 0.0 109L [facility] SYSTEM LAB Specimen (Source) Anatomical Collection Method Collection Time Re ceived Time Location / / Volume Laterality 02/19/2013 7:24 PM CDT Historical Provider LAB BLOOD ADD-ON Performing Organization Address City/State/ZIP Code Phon e Number [facility] Automated Differential (02/19/2013 7:24 PM CDT) P athologist Signature Eosinophils 0.0 109L [facility] LAB Specimen (Source) Anatomical Collection Method Collection Time Re ceived Time Location / / Volume Laterality 02/19/2013 7:24 PM CDT Historical Provider LAB BLOOD ADD-ON Performing Organization Address City/State/ZIP Code Phon e Number [facility] Automated Differential (02/19/2013 7:24 PM CDT) P athologist Signature Monocytes 0.4 109L [facility] LAB Specimen (Source) Anatomical Collection Method Collection Time Re ceived Time Location / / Volume Laterality 02/19/2013 7:24 PM CDT Historical Provider LAB BLOOD ADD-ON Performing Organization Address City/State/ZIP Code Phon e Number [facility] Automated Differential (02/19/2013 7:24 PM CDT) P athologist Signature Lymphocytes 1.1 109L [facility] LAB Specimen (Source) Anatomical Collection Method Collection Time Re ceived Time Location / / Volume Laterality 02/19/2013 7:24 PM CDT Historical Provider LAB BLOOD ADD-ON Performing Organization Address City/State/ZIP Code Phon e Number [facility] Automated Differential (02/19/2013 7:24 PM CDT) P athologist Signature Absolute 3.[address] [facility] SYSTEM LAB Specimen (Source) Anatomical Collection Method Collection Time Re ceived Time Location / / Volume Laterality 02/19/2013 7:24 PM CDT Historical Provider LAB BLOOD ADD-ON Performing Organization Address City/State/ZIP Code Phon e Number [facility] Automated Differential (02/19/2013 7:24 PM CDT) P athologist Signature Immature 0.4 [facility] Granulocytes % [facility] LAB Specimen (Source) Anatomical Collection Method Collection Time Re ceived Time Location / / Volume Laterality 02/19/2013 7:24 PM CDT Historical Provider LAB BLOOD ADD-ON Performing Organization Address City/State/ZIP Code Phon e Number [facility] LAB Automated Differential (02/19/2013 7:24 PM CDT) P athologist Signature HX Baso % 0.2 [facility] LAB Specimen (Source) Anatomical Collection Method Collection Time Re ceived Time Location / / Volume Laterality 02/19/2013 7:24 PM CDT Historical Provider LAB BLOOD ADD-ON Performing Organization Address City/State/ZIP Code Phon e Number [facility] Automated Differential (02/19/2013 7:24 PM CDT) P athologist Signature HX Eos % 0.6 [facility] LAB Specimen (Source) Anatomical Collection Method Collection Time Re ceived Time Location / / Volume Laterality 02/19/2013 7:24 PM CDT Historical Provider LAB BLOOD ADD-ON Performing Organization Address City/State/ZIP Code Phon e Number [facility] Automated Differential (02/19/2013 7:24 PM CDT) P athologist Signature HX [place] % 8.5 [facility] LAB Specimen (Source) Anatomical Collection Method Collection Time Re ceived Time Location / / Volume Laterality 02/19/2013 7:24 PM CDT Historical Provider LAB BLOOD ADD-ON Performing Organization Address City/State/ZIP Code Phon e Number [facility] Automated Differential (02/19/2013 7:24 PM CDT) P athologist Signature Lymphocytes 22.4 [facility] LAB Specimen (Source) Anatomical Collection Method Collection Time Re ceived Time Location / / Volume Laterality 02/19/2013 7:24 PM CDT Historical Provider LAB BLOOD ADD-ON Performing Organization Address City/State/ZIP Code Phon e Number [facility] Automated Differential (02/19/2013 7:24 PM CDT) P athologist Signature Neutro % 67.9 [facility] LAB Specimen (Source) Anatomical Collection Method Collection Time Re ceived Time Location / / Volume Laterality 02/19/2013 7:24 PM CDT Historical Provider LAB BLOOD ADD-ON Performing Organization Address City/State/ZIP Code Phon e Number [facility] CBC with Differential (02/19/2013 7:24 PM CDT) Patholo gist Method Time Signature HXDifferentia Automated [facility] l? Method [facility] SYSTEM LAB Specimen (Source) Anatomical Collection Method Collection Time Re ceived Time Location / / Volume Laterality 02/19/2013 7:24 PM CDT Historical Provider LAB BLOOD ADD-ON Performing Organization Address City/State/ZIP Code Phon e Number [facility] Platelet Count (02/19/2013 7:24 PM CDT) P athologist Signature Platelet Count 164 109L [facility] LAB Specimen (Source) Anatomical Collection Method Collection Time Re ceived Time Location / / Volume Laterality 02/19/2013 7:24 PM CDT Historical Provider LAB BLOOD ADD-ON Performing Organization Address City/State/ZIP Code Phon e Number [facility] RBC SYSMEX (02/19/2013 7:24 PM CDT) P athologist Signature HX RDW 13.6 [facility] LAB Specimen (Source) Anatomical Collection Method Collection Time Re ceived Time Location / / Volume Laterality 02/19/2013 7:24 PM CDT Historical Provider LAB URINE ORDERABLES Performing Organization Address City/State/ZIP Code Phon e Number [facility] RBC SYSMEX (02/19/2013 7:24 PM CDT) P athologist Signature MCHC 33.5 GMDL [facility] LAB Specimen (Source) Anatomical Collection Method Collection Time Re ceived Time Location / / Volume Laterality 02/19/2013 7:24 PM CDT Historical Provider LAB URINE ORDERABLES Performing Organization Address City/State/ZIP Code Phon e Number [facility] RBC SYSMEX (02/19/2013 7:24 PM CDT) P athologist Signature MCH 33.3 PG [facility] LAB Specimen (Source) Anatomical Collection Method Collection Time Re ceived Time Location / / Volume Laterality 02/19/2013 7:24 PM CDT Historical Provider LAB URINE ORDERABLES Performing Organization Address City/State/ZIP Code Phon e Number [facility] Automated Differential (02/19/2013 7:24 PM CDT) P athologist Signature MCV 100 FL [facility] LAB Specimen (Source) Anatomical Collection Method Collection Time Re ceived Time Location / / Volume Laterality 02/19/2013 7:24 PM CDT Historical Provider LAB BLOOD ADD-ON Performing Organization Address City/State/ZIP Code Phon e Number [facility] Hematocrit (02/19/2013 7:24 PM CDT) P athologist Signature Hematocrit 40.3 [facility] LAB Specimen (Source) Anatomical Collection Method Collection Time Re ceived Time Location / / Volume Laterality 02/19/2013 7:24 PM CDT Historical Provider LAB BLOOD ADD-ON Performing Organization Address City/State/ZIP Code Phon e Number [facility] Hemoglobin (02/19/2013 7:24 PM CDT) P athologist Signature Hemoglobin 13.5 GMDL [facility] LAB Specimen (Source) Anatomical Collection Method Collection Time Re ceived Time Location / / Volume Laterality 02/19/2013 7:24 PM CDT Historical Provider LAB BLOOD ADD-ON Performing Organization Address City/State/ZIP Code Phon e Number [facility] RBC SYSMEX (02/19/2013 7:24 PM CDT) P athologist Signature Erythrocytes 4.05 X10 [facility] LAB Specimen (Source) Anatomical Collection Method Collection Time Re ceived Time Location / / Volume Laterality 02/19/2013 7:24 PM CDT Historical Provider LAB URINE ORDERABLES Performing Organization Address City/State/ZIP Code Phon e Number [facility] CBC with Differential (02/19/2013 7:24 PM CDT) P athologist Signature Leukocytes 5.0 109L [facility] Specimen (Source) Anatomical Collection Method Collection Time Re ceived Time Location / / Volume Laterality 02/19/2013 7:24 PM CDT Historical Provider LAB BLOOD ADD-ON Performing Organization Address City/State/ZIP Code Phon e Number [facility] documented in this encounter Visit Diagnoses Not on filedocumented in this encounter
--- OUTSIDE RECORDS SUMMARY | 2022-04-25 16:07 | XMS_ITS | Encounter Summary ---
:1975 Author Organization [facility] Address [address] [place] [address] Care Team Providers Name Role Phone Unavailable Primary Care Provider Unavailable Encounter Details Date Type Department Care Team Description 11/01/2012 Hospital Encounter HX [facility] SURGCLINI Indra Stubbs M.D. Social History Tobacco Use Types Packs/Day Years Used Date Smoking Tobacco: Never Assessed Sex Assigned at Date Recorded Not on file documented as of this encounter Progress Notes Lizeth Stubbs M.D. - 11/01/2012 3:00 PM CDT [id number] CLINIC ENCOUNTER This is a new patient evaluation for Hue who comes in with her mother today. She is a 37-year-old female with Down syndrome who comes in for evaluation of rectal bleeding. She has had intermittent rectal bleeding for the past several months. She usually notices this on the outside when she wipes but occasionally it is with a bowel movement. She has regular bowel movements and no problems with constipation. She lives alone and does her own activities of daily living. She had a recent transabdominal ultrasound that showed a right ovarian cyst that is going to be followed. PAST MEDICAL HISTORY/FAMILY HISTORY/SOCIAL HISTORY: Were reviewed and the patient is on Coumadin for a lower extremity DVT that she had. She has protein-S deficiency. She works at [employer]. Her mother lives in [place]. PHYSICAL EXAMINATION: Awake, alert female. Appropriate mood and affect. No acute distress. Focused perianal exam was performed with nurse cloth roll winder Eliana, the patient and her mother. She was in the prone position. There was no evidence of external hemorrhoidal disease or other perianal process. There was some mild punctate-type ulceration which may be from some vigorous wiping. A digital rectal exam showed no palpable abnormalities. Anoscopy was then performed in four quadrants. I could see some evidence of blood and blood-tinged mucus but I did not see any obvious internal hemorrhoidal disease in any quadrant. IMPRESSION: Rectal bleeding with no obvious source by anoscopy. PLAN: The patient does have rectal blood on anoscopy. I did not see any internal hemorrhoidal disease or other obvious source. She is on Coumadin for her hypercoagulable state and lower extremity DVT. I would recommend colonoscopy as a next step. Patient, mother and I discussed the risks and the benefits of this. Will make the arrangements for colonoscopy. She can follow up with her PCP to review colonoscopy results. Any obvious findings will be reviewed with the endoscopist on the day of the procedure. I will send a note to Dr. Garibay to make sure he is okay with stopping her Coumadin for three days prior to the procedure without any bridging therapy. Gabby Russo/st/law cc: Sridhar Garibay M.D. Source: [facility] RWHXTRANSXRTFSYS Document Id: [id number] Electronically signed by Conversion, [facility] Engine Head Repairer [id number] at 11/21/2016 4:41 PM CDT documented in this encounter Plan of Treatment Not on filedocumented as of this encounter Visit Diagnoses Not on filedocumented in this encounter
--- OUTSIDE RECORDS SUMMARY | 2022-04-25 16:07 | XMS_ITS | Encounter Summary ---
:[address] [facility] Address [address] [place] [address] Care Team Providers Name Role Phone Unavailable Primary Care Provider Unavailable Encounter Details Date Type Department Care Team Description 08/20/2012 Hospital Encounter HX NO MAPPING Yunier Scott M.D. [address] [place], [place] [phone] (Wo rk) Social History Tobacco Use Types Packs/Day Years Used Date Smoking Tobacco: Never Assessed Sex Assigned at Date Recorded Not on file documented as of this encounter Plan of Treatment Not on filedocumented as of this encounter Visit Diagnoses Not on filedocumented in this encounter
--- OUTSIDE RECORDS SUMMARY | 2022-04-25 16:07 | XMS_ITS | Encounter Summary ---
:1975 Author Organization [facility] Address [address] [place] [address] Care Team Providers Name Role Phone Unavailable Primary Care Provider Unavailable Encounter Details Date Type Department Care Team Description 11/22/2012 Hospital Encounter HX NO MAPPING Provider, Historical Social History Tobacco Use Types Packs/Day Years Used Date Smoking Tobacco: Never Assessed Sex Assigned at Date Recorded Not on file documented as of this encounter Plan of Treatment Not on filedocumented as of this encounter Visit Diagnoses Not on filedocumented in this encounter
--- OUTSIDE RECORDS SUMMARY | 2022-04-25 16:07 | XMS_ITS | Encounter Summary ---
:1975 Author Organization [facility] Address [address] [place] [address] Care Team Providers Name Role Phone Unavailable Primary Care Provider Unavailable Encounter Details Date Type Department Care Team Description 07/23/2012 Hospital Encounter HX [facility] Andrea Whipple M.D. [address] [place], [place] [address] (Wo rk) Social History Tobacco Use Types Packs/Day Years Used Date Smoking Tobacco: Never Assessed Sex Assigned at Date Recorded Not on file documented as of this encounter Plan of Treatment Not on filedocumented as of this encounter Visit Diagnoses Not on filedocumented in this encounter
--- OUTSIDE RECORDS SUMMARY | 2022-04-25 16:07 | XMS_ITS | Encounter Summary ---
:1975 Author Organization [facility] Address [address] [place] [address] Care Team Providers Name Role Phone Unavailable Primary Care Provider Unavailable Encounter Details Date Type Department Care Team Description 01/31/2013 Hospital Encounter HX [facility] ANTICOAG Provider, His torical Social History Tobacco Use Types Packs/Day Years Used Date Smoking Tobacco: Never Assessed Sex Assigned at Date Recorded Not on file documented as of this encounter Plan of Treatment Not on filedocumented as of this encounter Procedures Procedure Name Priority Date/Time Associated Comments Diagnosis PROTHROMBIN TIME Routine 01/31/2013 10:58 Results for this (PT), P AM CDT procedure are i n the results section. documented in this encounter Results PT (Prothrombin Time) with INR (01/31/2013 10:58 AM CDT) P athologist Signature INR 1.97 [facility] Specimen (Source) Anatomical Collection Method Collection Time Re ceived Time Location / / Volume Laterality 01/31/2013 10:58 AM CDT Historical Provider LAB BLOOD ADD-ON Performing Organization Address City/State/ZIP Code Phon e Number [facility] documented in this encounter Visit Diagnoses Not on filedocumented in this encounter
--- OUTSIDE RECORDS SUMMARY | 2022-04-25 16:07 | XMS_ITS | Encounter Summary ---
:1975 Author Organization [facility] Address [address] [place] [address] Care Team Providers Name Role Phone Unavailable Primary Care Provider Unavailable Encounter Details Date Type Department Care Team Description 02/22/2013 Hospital Encounter [facility] ANTICOAG Provider, His torical Social History Tobacco Use Types Packs/Day Years Used Date Smoking Tobacco: Never Assessed Sex Assigned at Date Recorded Not on file documented as of this encounter Plan of Treatment Not on filedocumented as of this encounter Procedures Procedure Name Priority Date/Time Associated Comments Diagnosis PROTHROMBIN TIME Routine 02/22/2013 5:08 PM Resul ts for this (PT), P CDT procedure are i n the results section. documented in this encounter Results PT (Prothrombin Time) with INR (02/22/2013 5:08 PM CDT) P athologist Signature INR 2.10 [facility] Specimen (Source) Anatomical Collection Method Collection Time Re ceived Time Location / / Volume Laterality 02/22/2013 5:08 PM CDT Historical Provider LAB BLOOD ADD-ON Performing Organization Address City/State/ZIP Code Phon e Number [facility] documented in this encounter Visit Diagnoses Not on filedocumented in this encounter
--- OUTSIDE RECORDS SUMMARY | 2022-04-25 16:07 | XMS_ITS | Encounter Summary ---
:1975 Author Organization [facility] Address [address] [place] [address] Care Team Providers Name Role Phone Unavailable Primary Care Provider Unavailable Encounter Details Date Type Department Care Team Description 11/08/2012 Hospital Encounter HX NO MAPPING Social History Tobacco Use Types Packs/Day Years Used Date Smoking Tobacco: Never Assessed Sex Assigned at Date Recorded Not on file documented as of this encounter Plan of Treatment Not on filedocumented as of this encounter Visit Diagnoses Not on filedocumented in this encounter
--- OUTSIDE RECORDS SUMMARY | 2022-04-25 16:07 | XMS_ITS | Encounter Summary ---
:1975 Author Organization [facility] Address [address] [place] [address] Care Team Providers Name Role Phone Unavailable Primary Care Provider Unavailable Encounter Details Date Type Department Care Team Description 10/29/2012 Hospital Encounter HX [facility] Gilma Mai M.D. [address] [place] [phone] (Wo rk) Social History Tobacco Use Types Packs/Day Years Used Date Smoking Tobacco: Never Assessed Sex Assigned at Date Recorded Not on file documented as of this encounter Progress Notes Hudson Mai M.D. - 10/29/2012 2:45 PM CDT [id number] CLINIC ENCOUNTER This is a consultation requested by Dr. Garibay for followup of congenital heart disease. Ms. Medina is a 37-year-old woman with a history of Down syndrome. 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 They noted the defect was 1.5 cm and a VSD with citr-rj-eyuht shunt. She has had no followup in the last 12 years and mother felt that probably she is due for a cardiology evaluation. Ms. Medina really does quite well. She lives independently in [facility] in an assisted living situation. She is in the [employer] in power walking and does do her power walk almost daily as well as using a bike for up to 30 minutes. There has been no shortness of breath, no chest discomfort. She sleeps well. There has been no palpitations. She does have a history of a deep venous thrombosis, though evidently without pulmonary emboli, and has been on Coumadin for about 5 years. There is no history of hypertension. She does have a history of high cholesterol levels which tends to run in the family evidently. Cholesterol was 217, triglycerides 149, HDL 46, LDL 141. I noted she recently had a hemoglobin of 13.9, MCV is somewhat elevated at 101 and TSH in July was mildly elevated at 6.58. Otherwise there has really been no major abnormalities. REVIEW OF SYSTEMS: There has been some recent rectal bleeding. Otherwise has really been no other major issues and has been healthy. SOCIAL HISTORY: As noted lives independently in assisted living. Works at [employer]. MEDICATIONS: Include that of Coumadin and doxycycline. PHYSICAL EXAMINATION: She is a very pleasant young woman who answers all questions appropriately. Her blood pressure is 100/56, pulse 78 and regular. Lungs were clear. Cardiovascular examination: jugular venous pressure is normal with a positive hepatojugular reflex. Carotid upstroke is normal. There are no bruits. There is no parasternal lift. PMI is displaced in the anterior axillary line. S1, S2 with a 1/6 short systolic ejection murmur at the left upper sternal border and a grade 2/6 long holosystolic murmur that is heard at the left sternal border, but also heard at the apex and somewhat laterally. There is no cyanosis. Abdomen is soft, nontender. 2+ femoral pulses. Normal dorsalis pedis pulses. No edema, but there are some stasis changes, especially in the right lower extremity. ASSESSMENT/PLAN: Ms. Medina appears to be doing very well. She has had no cardiac symptoms and is quite active. She does have a history of congenital heart disease with echo findings as noted. I believe that we should repeat her echocardiogram and would get a congenital echo in [place]. At the same time she can be seen in the congenital heart clinic which I think would be appropriate. Gilma Mai M.D. Rama cc: Sridhar Garibay M.D. Source: [facility] RWHXTRANSXRTFSYS Document Id: [id number] documented in this encounter Plan of Treatment Not on filedocumented as of this encounter Visit Diagnoses Not on filedocumented in this encounter
--- OUTSIDE RECORDS SUMMARY | 2022-04-25 16:07 | XMS_ITS | Encounter Summary ---
:1975 Author Organization [facility] Address [address] [place] [address] Care Team Providers Name Role Phone Unavailable Primary Care Provider Unavailable Encounter Details Date Type Department Care Team Description 08/21/2012 Hospital Encounter HX [facility] Juan Lau M.D. [address] [place] [phone] (Wo rk) Social History Tobacco Use Types Packs/Day Years Used Date Smoking Tobacco: Never Assessed Sex Assigned at Date Recorded Not on file documented as of this encounter Miscellaneous Notes Telephone Encounter - Phoebe Scott M.D. - 08/21/2012 12:00 AM CST [id number] I personally called the patient's mother to discuss her preliminary TVUS results. Her mother, who ishheather BEAN, will ensure that the patient schedules a follow up ultrasound in two months. Her mother understands the importance of proper follow up. Source: [facility] Document Id: [id number] Electronically signed by Lay [facility] Financial Institution Manager [id number] at 11/21/2016 6:33 PM CDT documented in this encounter Plan of Treatment Not on filedocumented as of this encounter Visit Diagnoses Not on filedocumented in this encounter
--- OUTSIDE RECORDS SUMMARY | 2022-04-25 16:07 | XMS_ITS | Encounter Summary ---
:1975 Author Organization [facility] Address [address] [place] [address] Care Team Providers Name Role Phone Unavailable Primary Care Provider Unavailable Encounter Details Date Type Department Care Team Description 08/29/2012 Hospital Encounter HX [employer] [facility] Marsha Garibay M.D. [address] [place], [place] [address] (Wo rk) Social History Tobacco Use Types Packs/Day Years Used Date Smoking Tobacco: Never Assessed Sex Assigned at Date Recorded Not on file documented as of this encounter Miscellaneous Notes Telephone Encounter - Conversion, Historical Provider Ser - 08/29/2012 12:00 AM CST [id number] Received refill request from patient/pharmacy medication pended for review. Source: [facility] Document Id: [id number] Telephone Encounter - Antonia Mcclellan - 08/29/2012 12:00 AM CST [id number] Unable to approve medication per the RN refill protocol due to: - Incomplete labs with exclusionary diagnosis. No AST or ALT noted. Last visit:03/05/12 BP Readings from Last 1 Encounters: 08/02/12 102/68 Hypercholesterolemia Labs: No results found for this basename: ast No results found for this basename: alt CHOL 217 08/09/2012 TRIG 149 08/09/2012 HDL 46 08/09/2012 LDL 141 08/09/2012 INR 2.28 08/30/2012 Source: [facility] RWMCHXTRANSXRTFSYS Document Id: [id number] Electronically signed by Conversion, [facility] Tablet Making Machine Operator [id number] at 11/21/2016 3:43 PM CDT documented in this encounter Plan of Treatment Not on filedocumented as of this encounter Visit Diagnoses Not on filedocumented in this encounter
--- OUTSIDE RECORDS SUMMARY | 2022-04-25 16:07 | XMS_ITS | Encounter Summary ---
:1975 Author Organization [facility] Address [address] [place] [address] Care Team Providers Name Role Phone Unavailable Primary Care Provider Unavailable Encounter Details Date Type Department Care Team Description 12/04/2012 Hospital Encounter HX NO MAPPING Jayden Parikh M.D. [address] [place], [place] [phone] (Wo rk) Social History Tobacco Use Types Packs/Day Years Used Date Smoking Tobacco: Never Assessed Sex Assigned at Date Recorded Not on file documented as of this encounter Plan of Treatment Not on filedocumented as of this encounter Visit Diagnoses Not on filedocumented in this encounter
--- OUTSIDE RECORDS SUMMARY | 2022-04-25 16:07 | XMS_ITS | Encounter Summary ---
:1975 Author Organization [facility] Address [address] [place] [address] Care Team Providers Name Role Phone Unavailable Primary Care Provider Unavailable Encounter Details Date Type Department Care Team Description 11/29/2012 Hospital Encounter [facility]X [facility] Janie Hunt ra, R.N. Social History Tobacco Use Types Packs/Day Years Used Date Smoking Tobacco: Never Assessed Sex Assigned at Date Recorded Not on file documented as of this encounter Miscellaneous Notes Telephone Encounter - Jazz Hunt R.N. - 11/29/2012 12:00 AM CDT [id number] Situation/What is the patients concern/need: Having Colonscopy done on 12/04 for rectal bleeding Clinical Background/Recent Intervention: Hx of DVT 5 yrs ago and has a protein S deficiency Recommendation/Patient Request: PCP is out of clinic, attempted to reach him by Phone. Per Dr Stubbs's notes dated 11/01/12 I will send a note to Dr. Garibay to make sure he is okay with stopping her Coumadin for three days prior to the procedure without any bridging therapy. Lizeth Stubbs M.D. Best number(s) to reach patient: INR clinic requesting clarification Source: [facility] Document Id: [id number] Telephone Encounter - Jazz Hunt R.N. - 11/29/2012 12:[id number] Avelina, can you review this and support Enco's recommendation? I can not find anything in patient's chart /msg from PCP. Source: [facility] Document Id: [id number] Telephone Encounter - Jazz Hunt R.N. - 11/29/2012 12:00 AM CDT [id number] PCP returned call and it is OK to hold Coumadin 3 days prior to colonscopy w/o bridging. Source: [facility] Document Id: [id number] Telephone Encounter - Jazz Hunt R.N. - 11/29/2012 12:00 AM CDT [id number] INR nurse notified of PCPs response Source: [facility] Document Id: [id number] documented in this encounter Plan of Treatment Not on filedocumented as of this encounter Visit Diagnoses Not on filedocumented in this encounter
--- OUTSIDE RECORDS SUMMARY | 2022-04-25 16:07 | XMS_ITS | Encounter Summary ---
:1975 Author Organization [facility] Address [address] [place] [address] Care Team Providers Name Role Phone Unavailable Primary Care Provider Unavailable Encounter Details Date Type Department Care Team Description 11/29/2012 Hospital Encounter [facility] Antonia Jenkins RMichaelNMichael Social History Tobacco Use Types Packs/Day Years Used Date Smoking Tobacco: Never Assessed Sex Assigned at Date Recorded Not on file documented as of this encounter Plan of Treatment Not on filedocumented as of this encounter Visit Diagnoses Not on filedocumented in this encounter
--- OUTSIDE RECORDS SUMMARY | 2022-04-25 16:07 | XMS_ITS | Encounter Summary ---
:1975 Author Organization [facility] Address [address] [place] [address] Care Team Providers Name Role Phone Unavailable Primary Care Provider Unavailable Encounter Details Date Type Department Care Team Description 12/04/2012 Hospital Encounter HX NO MAPPING Jayden Parikh M.D. [address] [place], [place] [phone] (Wo rk) Social History Tobacco Use Types Packs/Day Years Used Date Smoking Tobacco: Never Assessed Sex Assigned at Date Recorded Not on file documented as of this encounter Plan of Treatment Not on filedocumented as of this encounter Visit Diagnoses Not on filedocumented in this encounter
--- OUTSIDE RECORDS SUMMARY | 2022-04-25 16:07 | XMS_ITS | Encounter Summary ---
:1975 Author Organization [facility] Address [address] [place] [address] Care Team Providers Name Role Phone Unavailable Primary Care Provider Unavailable Encounter Details Date Type Department Care Team Description 12/13/2012 Hospital Encounter HX [facility] ANTICOAG Provider, His torical Social History Tobacco Use Types Packs/Day Years Used Date Smoking Tobacco: Never Assessed Sex Assigned at Date Recorded Not on file documented as of this encounter Plan of Treatment Not on filedocumented as of this encounter Procedures Procedure Name Priority Date/Time Associated Comments Diagnosis PROTHROMBIN TIME Routine 12/13/2012 10:45 Results for this (PT), P AM CDT procedure are i n the results section. documented in this encounter Results PT (Prothrombin Time) with INR (12/13/2012 10:45 AM CDT) P athologist Signature INR 2.22 [facility] Specimen (Source) Anatomical Collection Method Collection Time Re ceived Time Location / / Volume Laterality 12/13/2012 10:45 AM CDT Historical Provider LAB BLOOD ADD-ON Performing Organization Address City/State/ZIP Code Phon e Number [facility] documented in this encounter Visit Diagnoses Not on filedocumented in this encounter
--- OUTSIDE RECORDS SUMMARY | 2022-04-25 16:07 | XMS_ITS | Encounter Summary ---
:1975 Author Organization [facility] Address [address] [place] [address] Care Team Providers Name Role Phone Unavailable Primary Care Provider Unavailable Encounter Details Date Type Department Care Team Description 07/19/2012 Hospital Encounter HX [facility] Juan Lau M.D. [address] [place] [address] (Wo rk) Social History Tobacco Use Types Packs/Day Years Used Date Smoking Tobacco: Never Assessed Sex Assigned at Date Recorded Not on file documented as of this encounter Miscellaneous Notes Miscellaneous - Phoebe Scott M.D. - 07/19/2012 12:00 AM CST [id number] Hue Medina [address] [facility] [phone] Date of : 1975 July 19, 2012 Thank you for choosing [facility] in [place] for your care. We would like to gather some important information before your preventive services annual exam on August 02 at 3:30pm so we can better serve you when you are here. In addition to services provided as part of an annual exam, we are also happy to discuss any additional health concerns/issues that you have. However, we want you to be aware that this may result in a separate/additional charge. Please review and update the information we currently have on file for you. Please return this information at least 1 week before your appointment using the enclosed postage-paid envelope or use our secure fax at Please list any problems/concerns you would like to discuss during your visit: PERSONAL MEDICAL HISTORY Current Medical Conditions Past Medical History Diagnosis Date Down's syndrome Ostium secundum type atrial septal defect Mitral valve disorders cleft mitral valve Cellulitis and abscess of leg, except foot 01/15/00 L lower leg Deep phlebitis-leg NEC 06/08/07 Please list any medical conditions not listed above and date diagnosed: Condition: Date: Condition: Date: Condition: Date: Condition: Date: Obstetrics History Number of Pregnancies: ___ Number of Live Births:___ Number of Living Children:___ Complications: Past Surgical History Past Surgical History Procedure Date Rw general surg (abstracted) 01/15/00 I & D w debridement, L thigh and leg cellulitis/abscess Please list below any surgeries not listed above. Also, include the surgery date and the name of theuc health care organization where you had the surgery. Surgery Surgery Date Health Care Organization Medications CROSS OUT medications you are not taking WRITE IN and new prescriptions, [id number], and herbal medications you are taking. Please write in the dose/amount taken and frequency/how often you take the medication For all doctor appointments, please bring your medications in their original containers. Current Outpatient Prescriptions Medication Sig doxycycline (PERIOSTAT) 20 MG tablet Take 20 mg by mouth 2 times daily. warfarin (COUMADIN) 5 MG tablet Take by mouth. 5 mg Tues, Thurs and Sat, 2.5mg all other days of week or as directed per INR Clinic PERIOSTAT 20 MG OR TABS 1 TABLET EVERY 12 HOURS ON EMPTY STOMACH NEW MED Rx mouth wash - daily CALCIUM + D OR 1 TABLET DAILY Please List Any Other Medications You Are Taking Date Started Allergies Bees; Chloramphenicol; and Quinolones List any new allergies Reaction Pharmacy: Town: Social History Please CROSS OUT information that is not current and WRITE IN any new information History Social History Marital Status: Single Spouse Name: N/A Number of Children: 0 Years of Education: N/A Occupational History Not on file. Social History Main Topics Smoking status: Never Smoker Smokeless tobacco: Never Used Alcohol Use: Yes very occ daquiri Drug Use: No Sexually Active: No Other Topics Concern Blood Transfusions No Caffeine Concern No Sleep Concern No Stress Concern No Weight Concern No Exercise Yes power walking 6 days a week Seat Belt Yes Self-Exams No Social History Narrative No narrative on file Smoking Yes No Do you smoke? If yes, are you ready to quit? Are you open to a referral to the [place] Quitline (free) Family History Please CROSS OUT information that is not current and WRITE IN any new information Family History Problem Relation Age of Onset Cancer Maternal Aunt breast Thyroid Maternal Aunt several maternal aunts Anesthesia No family hx of Blood Disease No family hx of Neurological No family hx of Cardiovascular Maternal Uncle anurism and a bulge on aorta at age 64 Healthy Habits 1. Do you get at least three servings of calcium containing foods daily (dairy, green leafy vegetables, etc.)? ____Yes ____No 2. Outside of work or daily activities, how many days per week do you exercise for 30 minutes or longer? ____ days 3. Have you had an eye exam in the past two years? ____Yes ____No 4. Do you see a dentist twice per year? ____Yes ____No 5. Do you drink more than 3 alcoholic drinks per day or 7 per week? ____Yes ____No PHQ-2 1. Over the last two weeks- Have you been bothered by little interest or pleasure in doing things? ___ Not at all ___ Several Days ___ More than half the days ___ Nearly every day 2. Over the last two weeks- Have you been feeling down, depressed, or hopeless? ___ Not at all ___ Several Days ___ More than half the days___ Nearly every day Safety Abuse: Current or Past (Physical, Sexual or Emotional)? ____Yes ____No Do you feel safe in your environment? ____Yes ____No RECOMMENDED PREVENTIVE HEALTH SCREENINGS See attached green sheet for test description For your convenience, tests 1 - 5 can be done on the same day as your visit. Due to the type of procedure, tests 6 - 10 may need to be done on a different day, Test Name If you are due for the test, can we help you schedule it? Done Yes No Elsewhere? Date 1. Lipid Panel 2. Screening Glucose 3. Chlamydia Screening 4. Breast Cancer Screening (women) 5. Cervical Cancer Screening (women) 6. Colorectal Cancer Screening 7. Ultrasound for Abdomen 8. Vision 9. Hearing 10.Dexascan Respectfully, [facility] in [place] Questions? Call us at and we are happy to help! Please return this information at least 1 week before your appointment using the enclosed postage-paid envelope or use our secure fax at Source: [facility] Document Id: [id number] documented in this encounter Plan of Treatment Not on filedocumented as of this encounter Visit Diagnoses Not on filedocumented in this encounter
--- OUTSIDE RECORDS SUMMARY | 2022-04-25 16:07 | XMS_ITS | Encounter Summary ---
:1975 Author Organization [facility] Address [address] [place] [address] Care Team Providers Name Role Phone Unavailable Primary Care Provider Unavailable Encounter Details Date Type Department Care Team Description 08/21/2012 Hospital Encounter HX [facility] Juan Lau M.D. [address] [place], [place] [phone] (Wo rk) Social History Tobacco Use Types Packs/Day Years Used Date Smoking Tobacco: Never Assessed Sex Assigned at Date Recorded Not on file documented as of this encounter Plan of Treatment Not on filedocumented as of this encounter Visit Diagnoses Not on filedocumented in this encounter
--- OUTSIDE RECORDS SUMMARY | 2022-04-25 16:07 | XMS_ITS | Encounter Summary ---
:1975 Author Organization [facility] Address [address] [place] [address] Care Team Providers Name Role Phone Unavailable Primary Care Provider Unavailable Encounter Details Date Type Department Care Team Description 11/14/2012 Hospital Encounter HX NO MAPPING Provider, Historical Social History Tobacco Use Types Packs/Day Years Used Date Smoking Tobacco: Never Assessed Sex Assigned at Date Recorded Not on file documented as of this encounter Plan of Treatment Not on filedocumented as of this encounter Visit Diagnoses Not on filedocumented in this encounter
--- OUTSIDE RECORDS SUMMARY | 2022-04-25 16:07 | XMS_ITS | Encounter Summary ---
:1975 Author Organization [facility] Address [address] [place] [address] Care Team Providers Name Role Phone Unavailable Primary Care Provider Unavailable Encounter Details Date Type Department Care Team Description 08/09/2012 Hospital Encounter HX [facility] Andrea Whipple M.D. [address] [place], [place] [address] (Wo rk) Social History Tobacco Use Types Packs/Day Years Used Date Smoking Tobacco: Never Assessed Sex Assigned at Date Recorded Not on file documented as of this encounter Plan of Treatment Not on filedocumented as of this encounter Visit Diagnoses Not on filedocumented in this encounter
--- OUTSIDE RECORDS SUMMARY | 2022-04-25 16:07 | XMS_ITS | Encounter Summary ---
:1975 Author Organization [facility] Address [address] [place] [address] Care Team Providers Name Role Phone Unavailable Primary Care Provider Unavailable Encounter Details Date Type Department Care Team Description 07/26/2012 Hospital Encounter HX [facility] ANTICOAG Provider, His torical Social History Tobacco Use Types Packs/Day Years Used Date Smoking Tobacco: Never Assessed Sex Assigned at Date Recorded Not on file documented as of this encounter Plan of Treatment Not on filedocumented as of this encounter Procedures Procedure Name Priority Date/Time Associated Comments Diagnosis PROTHROMBIN TIME Routine 07/26/2012 9:59 AM Resul ts for this (PT), P GLUER 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 documented in this encounter Results PT (Prothrombin Time) with INR (07/26/2012 9:59 AM GLUER MACHINE OPERATOR) P athologist Signature INR 2.92 [facility] Specimen (Source) Anatomical Collection Method Collection Time Re ceived Time Location / / Volume Laterality 07/26/2012 9:59 AM GLUER MACHINE OPERATOR Historical Provider LAB BLOOD ADD-ON Performing Organization Address City/State/ZIP Code Phon e Number [facility] documented in this encounter Visit Diagnoses Not on filedocumented in this encounter
--- OUTSIDE RECORDS SUMMARY | 2022-04-25 16:07 | XMS_ITS | Encounter Summary ---
:1975 Author Organization [facility] Address [address] [place] [address] Care Team Providers Name Role Phone Unavailable Primary Care Provider Unavailable Encounter Details Date Type Department Care Team Description 02/14/2013 Hospital Encounter [facility]X [facility] ANTICOAG Provider, His torical Social History Tobacco Use Types Packs/Day Years Used Date Smoking Tobacco: Never Assessed Sex Assigned at Date Recorded Not on file documented as of this encounter Plan of Treatment Not on filedocumented as of this encounter Procedures Procedure Name Priority Date/Time Associated Comments Diagnosis PROTHROMBIN TIME Routine 02/14/2013 9:54 AM Resul ts for this (PT), P CDT procedure are i n the results section. documented in this encounter Results PT (Prothrombin Time) with INR (02/14/2013 9:54 AM CDT) P athologist Signature INR 2.63 [facility] Specimen (Source) Anatomical Collection Method Collection Time Re ceived Time Location / / Volume Laterality 02/14/2013 9:54 AM CDT Historical Provider LAB BLOOD ADD-ON Performing Organization Address City/State/ZIP Code Phon e Number [facility] documented in this encounter Visit Diagnoses Not on filedocumented in this encounter
--- OUTSIDE RECORDS SUMMARY | 2022-04-25 16:07 | XMS_ITS | Encounter Summary ---
:1975 Author Organization [facility] Address [address] [place] [address] Care Team Providers Name Role Phone Unavailable Primary Care Provider Unavailable Encounter Details Date Type Department Care Team Description 01/03/2013 Hospital Encounter HX [facility] ANTICOAG Provider, His torical Social History Tobacco Use Types Packs/Day Years Used Date Smoking Tobacco: Never Assessed Sex Assigned at Date Recorded Not on file documented as of this encounter Plan of Treatment Not on filedocumented as of this encounter Visit Diagnoses Not on filedocumented in this encounter
--- OUTSIDE RECORDS SUMMARY | 2022-04-25 16:07 | XMS_ITS | Encounter Summary ---
:1975 Author Organization [facility] Address [address] [place] [address] Care Team Providers Name Role Phone Unavailable Primary Care Provider Unavailable Encounter Details Date Type Department Care Team Description 09/27/2012 Hospital Encounter HX [facility] ANTICOAG Provider, His torical Social History Tobacco Use Types Packs/Day Years Used Date Smoking Tobacco: Never Assessed Sex Assigned at Date Recorded Not on file documented as of this encounter Plan of Treatment Not on filedocumented as of this encounter Procedures Procedure Name Priority Date/Time Associated Comments Diagnosis PROTHROMBIN TIME Routine 09/27/2012 11:12 Results for this (PT), P AM CDT procedure are i n the results section. documented in this encounter Results PT (Prothrombin Time) with INR (09/27/2012 11:12 AM CDT) P athologist Signature INR 2.07 [facility] Specimen (Source) Anatomical Collection Method Collection Time Re ceived Time Location / / Volume Laterality 09/27/2012 11:12 AM CDT Historical Provider LAB BLOOD ADD-ON Performing Organization Address City/State/ZIP Code Phon e Number [facility] documented in this encounter Visit Diagnoses Not on filedocumented in this encounter
--- OUTSIDE RECORDS SUMMARY | 2022-04-25 16:07 | XMS_ITS | Encounter Summary ---
:1975 Author Organization [facility] Address [address] [place] [address] Care Team Providers Name Role Phone Unavailable Primary Care Provider Unavailable Encounter Details Date Type Department Care Team Description 08/20/2012 Hospital Encounter HX NO MAPPING Yunier Scott M.D. [address] [place], [place] [phone] (Wo rk) Social History Tobacco Use Types Packs/Day Years Used Date Smoking Tobacco: Never Assessed Sex Assigned at Date Recorded Not on file documented as of this encounter Plan of Treatment Not on filedocumented as of this encounter Visit Diagnoses Not on filedocumented in this encounter
--- OUTSIDE RECORDS SUMMARY | 2022-04-25 16:07 | XMS_ITS | Encounter Summary ---
:1975 Author Organization [facility] Address [address] [place] [address] Care Team Providers Name Role Phone Unavailable Primary Care Provider Unavailable Encounter Details Date Type Department Care Team Description 12/04/2012 Hospital Encounter HX NO MAPPING Jayden Parikh M.D. [address], [place] [phone] (Wo rk) Social History Tobacco Use Types Packs/Day Years Used Date Smoking Tobacco: Never Assessed Sex Assigned at Date Recorded Not on file documented as of this encounter Miscellaneous Notes Miscellaneous - Eddi Parikh M.D. - 12/04/2012 12:00 AM CDT [id number] Hue Medina [address] [facility] [phone] December 12, 2012 Dear Hue Medina The biopsy results from your recent colonoscopy exam at the [facility] in [place] - Endoscopy Department show the following: Benign (non- cancerous), mild inflammation in the rectum. I recommend you follow up with your primary doctor as needed and use Anusol suppositories for 1 week. If you have any questions/concerns regarding this, please call us at [phone]. Thank you for letting us serve you. Sincerely, Eddi Parikh MD [facility][Note 3] Source: [facility] [id number] Document Id: [id number] Electronically signed by [facility] Butter Melter [id number] at 11/21/2016 6:06 PM CDT documented in this encounter Plan of Treatment Not on filedocumented as of this encounter Visit Diagnoses Not on filedocumented in this encounter
--- OUTSIDE RECORDS SUMMARY | 2022-04-25 16:07 | XMS_ITS | Encounter Summary ---
:1975 Author Organization [facility] Address [address] [place] [id number] Care Team Providers Name Role Phone Unavailable Primary Care Provider Unavailable Encounter Details Date Type Department Care Team Description 08/09/2012 Hospital Encounter [facility] ANTICOAG Provider, His torical Social History Tobacco Use Types Packs/Day Years Used Date Smoking Tobacco: Never Assessed Sex Assigned at Date Recorded Not on file documented as of this encounter Plan of Treatment Not on filedocumented as of this encounter Procedures Procedure Name Priority Date/Time Associated Comments Diagnosis THYROID-STIMULATING Routine 08/09/2012 10:44 Resu lts for this HORMONE-SENSITIVE AM POULTRY PROCESSING SUPERVISOR procedure are in (S-TSH) the results section. PROTHROMBIN TIME Routine 08/09/2012 10:18 Results for this (PT), P AM POULTRY PROCESSING SUPERVISOR procedure are i n the results section. HX CHOL/HDL RATIO Routine 08/09/2012 10:17 Result s for this AM POULTRY PROCESSING SUPERVISOR procedure are i n the results section. HX VLDL CHOL Routine 08/09/2012 10:17 Results for this AM POULTRY PROCESSING SUPERVISOR procedure are i n the results section. LIPID PANEL, S Routine 08/09/2012 10:17 Results f or this AM POULTRY PROCESSING SUPERVISOR procedure are i n the results section. TRIGLYCERIDES, S Routine 08/09/2012 10:17 Results for this AM POULTRY PROCESSING SUPERVISOR procedure are i n the results section. CHOLESTEROL, HDL, S Routine 08/09/2012 10:17 Resu lts for this AM POULTRY PROCESSING SUPERVISOR procedure are i n the results section. GLUCOSE, RANDOM, S/P Routine 08/09/2012 10:17 Res ults for this AM POULTRY PROCESSING SUPERVISOR procedure are i n the results section. CHOLESTEROL, TOTAL, S Routine 08/09/2012 10:17 Re sults for this AM POULTRY PROCESSING SUPERVISOR procedure are i n the results section. RBC SYSMEX Routine 08/09/2012 10:07 Results for this AM POULTRY PROCESSING SUPERVISOR procedure are i n the results section. RBC SYSMEX Routine 08/09/2012 10:07 Results for this AM POULTRY PROCESSING SUPERVISOR procedure are i n the results section. RBC SYSMEX Routine 08/09/2012 10:07 Results for this AM POULTRY PROCESSING SUPERVISOR procedure are i n the results section. RBC SYSMEX Routine 08/09/2012 10:07 Results for this AM POULTRY PROCESSING SUPERVISOR procedure are i n the results section. AUTOMATED Routine 08/09/2012 10:07 Results for this DIFFERENTIAL, B AM POULTRY PROCESSING SUPERVISOR procedure ar e in the results section. AUTOMATED Routine 08/09/2012 10:07 Results for this DIFFERENTIAL, B AM POULTRY PROCESSING SUPERVISOR procedure ar e in the results section. AUTOMATED Routine 08/09/2012 10:07 Results for this DIFFERENTIAL, B AM POULTRY PROCESSING SUPERVISOR procedure ar e in the results section. AUTOMATED Routine 08/09/2012 10:07 Results for this DIFFERENTIAL, B AM POULTRY PROCESSING SUPERVISOR procedure ar e in the results section. AUTOMATED Routine 08/09/2012 10:07 Results for this DIFFERENTIAL, B AM POULTRY PROCESSING SUPERVISOR procedure ar e in the results section. AUTOMATED Routine 08/09/2012 10:07 Results for this DIFFERENTIAL, B AM POULTRY PROCESSING SUPERVISOR procedure ar e in the results section. AUTOMATED Routine 08/09/2012 10:07 Results for this DIFFERENTIAL, B AM POULTRY PROCESSING SUPERVISOR procedure ar e in the results section. AUTOMATED Routine 08/09/2012 10:07 Results for this DIFFERENTIAL, B AM POULTRY PROCESSING SUPERVISOR procedure ar e in the results section. AUTOMATED Routine 08/09/2012 10:07 Results for this DIFFERENTIAL, B AM POULTRY PROCESSING SUPERVISOR procedure ar e in the results section. AUTOMATED Routine 08/09/2012 10:07 Results for this DIFFERENTIAL, B AM POULTRY PROCESSING SUPERVISOR procedure ar e in the results section. AUTOMATED Routine 08/09/2012 10:07 Results for this DIFFERENTIAL, B AM POULTRY PROCESSING SUPERVISOR procedure ar e in the results section. AUTOMATED Routine 08/09/2012 10:07 Results for this DIFFERENTIAL, B AM POULTRY PROCESSING SUPERVISOR procedure ar e in the results section. AUTOMATED Routine 08/09/2012 10:07 Results for this DIFFERENTIAL, B AM POULTRY PROCESSING SUPERVISOR procedure ar e in the results section. PLATELETS, B Routine 08/09/2012 10:07 Results for this AM POULTRY PROCESSING SUPERVISOR procedure are i n the results section. CBC WITH Routine 08/09/2012 10:07 Results for this DIFFERENTIAL, B AM POULTRY PROCESSING SUPERVISOR procedure ar e in the results section. CBC WITH Routine 08/09/2012 10:07 Results for this DIFFERENTIAL, B AM POULTRY PROCESSING SUPERVISOR procedure ar e in the results section. HEMOGLOBIN, B Routine 08/09/2012 10:07 Results fo r this AM POULTRY PROCESSING SUPERVISOR procedure are i n the results section. HEMATOCRIT, B Routine 08/09/2012 10:07 Results fo r this AM POULTRY PROCESSING SUPERVISOR procedure are i n the results section. documented in this encounter Results S-TSH (Thyroid-Stimulating Hormone - Sensitive) (08/09/2012 10:44 AM POULTRY PROCESSING SUPERVISOR) P athologist Signature TSH 6.58 MUNITL [facility] (Thyrotropin) [facility] Specimen (Source) Anatomical Collection Method Collection Time Re ceived Time Location / / Volume Laterality 08/09/2012 10:44 AM POULTRY PROCESSING SUPERVISOR Historical Provider LAB BLOOD ADD-ON Performing Organization Address City/State/ZIP Code Phon e Number [facility] PT (Prothrombin Time) with INR (08/09/2012 10:18 AM POULTRY PROCESSING SUPERVISOR) P athologist Signature INR 2.19 [facility] Specimen (Source) Anatomical Collection Method Collection Time Re ceived Time Location / / Volume Laterality 08/09/2012 10:18 AM POULTRY PROCESSING SUPERVISOR Historical Provider LAB BLOOD ADD-ON Performing Organization Address City/State/ZIP Code Phon e Number [facility] Glucose, Random (08/09/2012 10:17 AM POULTRY PROCESSING SUPERVISOR) P athologist Signature Glucose 88 MGDL [facility] Specimen (Source) Anatomical Collection Method Collection Time Re ceived Time Location / / Volume Laterality 08/09/2012 10:17 AM POULTRY PROCESSING SUPERVISOR Narrative [facility] - 09/06/19 14 8:12 PM CDT Fasting specimen Historical Provider LAB BLOOD TROPONIN Performing Organization Address City/State/ZIP Code Phon e Number [facility] HX CHOL/HDL RATIO (08/09/2012 10:17 AM POULTRY PROCESSING SUPERVISOR) P athologist Signature Total 4.7 [facility] Cholesterol/HDL [facility] LAB Specimen (Source) Anatomical Collection Method Collection Time Re ceived Time Location / / Volume Laterality 08/09/2012 10:17 AM POULTRY PROCESSING SUPERVISOR Historical Provider LAB HISTORICAL ORDERS Performing Organization Address City/State/ZIP Code Phon e Number [facility] HX VLDL CHOL (08/09/2012 10:17 AM POULTRY PROCESSING SUPERVISOR) P athologist Signature VLDL cholesterol 30 MGDL [facility] Specimen (Source) Anatomical Collection Method Collection Time Re ceived Time Location / / Volume Laterality 08/09/2012 10:17 AM POULTRY PROCESSING SUPERVISOR Historical Provider LAB HISTORICAL ORDERS Performing Organization Address City/State/ZIP Code Phon e Number [facility] Lipid Panel (08/09/2012 10:17 AM POULTRY PROCESSING SUPERVISOR) P athologist Signature Calculated LDL 141 MGDL [facility] Specimen (Source) Anatomical Collection Method Collection Time Re ceived Time Location / / Volume Laterality 08/09/2012 10:17 AM POULTRY PROCESSING SUPERVISOR Narrative [facility] - 09/06/19 14 8:12 PM CDT LDL Cholesterol is the primary guide to therapy: LDL-cholesterol goal in high risk patients is <100 mg/dL and in very high risk patients is <70 mg/dL. Historical Provider LAB BLOOD ADD-ON Performing Organization Address City/State/ZIP Code Phon e Number [facility] Cholesterol, High-Density Lipoprotein (HDL) (08/09/2012 10:17 AM POULTRY PROCESSING SUPERVISOR) P athologist Signature HX HDL 46 MGDL [facility] Specimen (Source) Anatomical Collection Method Collection Time Re ceived Time Location / / Volume Laterality 08/09/2012 10:17 AM POULTRY PROCESSING SUPERVISOR Historical Provider LAB BLOOD ADD-ON Performing Organization Address City/State/ZIP Code Phon e Number [facility] Triglycerides (08/09/2012 10:17 AM POULTRY PROCESSING SUPERVISOR) P athologist Signature Triglycerides 149 MGDL [facility] Specimen (Source) Anatomical Collection Method Collection Time Re ceived Time Location / / Volume Laterality 08/09/2012 10:17 AM POULTRY PROCESSING SUPERVISOR Narrative [facility] - 09/06/19 14 8:12 PM CDT Fasting specimen Historical Provider LAB BLOOD ADD-ON Performing Organization Address City/State/ZIP Code Phon e Number [facility] Cholesterol, Total (08/09/2012 10:17 AM POULTRY PROCESSING SUPERVISOR) P athologist Signature Cholestanol 217 MGDL [facility] Specimen (Source) Anatomical Collection Method Collection Time Re ceived Time Location / / Volume Laterality 08/09/2012 10:17 AM POULTRY PROCESSING SUPERVISOR Narrative [facility] - 09/06/19 14 8:12 PM CDT LDL Cholesterol is the primary guide to therapy. The NCEP recommends further evaluation o f: patients with cholesterol greater than 200 mg/dL if additional risk factor s are present, cholesterol greater than 240 mg/dL, triglycerides greater than 15 0 mg/dL, or HDL less than 40 mg/dL. Historical Provider LAB BLOOD ADD-ON Performing Organization Address City/State/ZIP Code Phon e Number [facility] Automated Differential (08/09/2012 10:07 AM POULTRY PROCESSING SUPERVISOR) P athologist Signature HXGranulo 0.0 109L [facility] LAB Specimen (Source) Anatomical Collection Method Collection Time Re ceived Time Location / / Volume Laterality 08/09/2012 10:07 AM POULTRY PROCESSING SUPERVISOR Historical Provider LAB BLOOD ADD-ON Performing Organization Address City/State/ZIP Code Phon e Number [facility] Automated Differential (08/09/2012 10:07 AM POULTRY PROCESSING SUPERVISOR) P athologist Signature Absolute 0.0 109L [facility] Specimen (Source) Anatomical Collection Method Collection Time Re ceived Time Location / / Volume Laterality 08/09/2012 10:07 AM POULTRY PROCESSING SUPERVISOR Historical Provider LAB BLOOD ADD-ON Performing Organization Address City/State/ZIP Code Phon e Number [facility] Automated Differential (08/09/2012 10:07 AM POULTRY PROCESSING SUPERVISOR) P athologist Signature Eosinophils 0.0 109L [facility] Specimen (Source) Anatomical Collection Method Collection Time Re ceived Time Location / / Volume Laterality 08/09/2012 10:07 AM POULTRY PROCESSING SUPERVISOR Historical Provider LAB BLOOD ADD-ON Performing Organization Address City/State/ZIP Code Phon e Number [facility] Automated Differential (08/09/2012 10:07 AM POULTRY PROCESSING SUPERVISOR) P athologist Signature Monocytes 0.3 109L [facility] Specimen (Source) Anatomical Collection Method Collection Time Re ceived Time Location / / Volume Laterality 08/09/2012 10:07 AM POULTRY PROCESSING SUPERVISOR Historical Provider LAB BLOOD ADD-ON Performing Organization Address City/State/ZIP Code Phon e Number [facility] Automated Differential (08/09/2012 10:07 AM POULTRY PROCESSING SUPERVISOR) P athologist Signature Lymphocytes 0.9 109L [facility] Specimen (Source) Anatomical Collection Method Collection Time Re ceived Time Location / / Volume Laterality 08/09/2012 10:07 AM POULTRY PROCESSING SUPERVISOR Historical Provider LAB BLOOD ADD-ON Performing Organization Address City/State/ZIP Code Phon e Number [facility] Automated Differential (08/09/2012 10:07 AM POULTRY PROCESSING SUPERVISOR) P athologist Signature Absolute 2.4 109L [facility] Specimen (Source) Anatomical Collection Method Collection Time Re ceived Time Location / / Volume Laterality 08/09/2012 10:07 AM POULTRY PROCESSING SUPERVISOR Historical Provider LAB BLOOD ADD-ON Performing Organization Address City/State/ZIP Code Phon e Number [facility] Automated Differential (08/09/2012 10:07 AM POULTRY PROCESSING SUPERVISOR) P athologist Signature Immature 0.3 [facility] Granulocytes % [facility] Specimen (Source) Anatomical Collection Method Collection Time Re ceived Time Location / / Volume Laterality 08/09/2012 10:07 AM POULTRY PROCESSING SUPERVISOR Historical Provider LAB BLOOD ADD-ON Performing Organization Address City/State/ZIP Code Phon e Number [facility] Automated Differential (08/09/2012 10:07 AM POULTRY PROCESSING SUPERVISOR) P athologist Signature HX Baso % 0.5 [facility] Specimen (Source) Anatomical Collection Method Collection Time Re ceived Time Location / / Volume Laterality 08/09/2012 10:07 AM POULTRY PROCESSING SUPERVISOR Historical Provider LAB BLOOD ADD-ON Performing Organization Address City/State/ZIP Code Phon e Number [facility] Automated Differential (08/09/2012 10:07 AM POULTRY PROCESSING SUPERVISOR) P athologist Signature HX Eos % 0.8 [facility] Specimen (Source) Anatomical Collection Method Collection Time Re ceived Time Location / / Volume Laterality 08/09/2012 10:07 AM POULTRY PROCESSING SUPERVISOR Historical Provider LAB BLOOD ADD-ON Performing Organization Address City/State/ZIP Code Phon e Number [facility] Automated Differential (08/09/2012 10:07 AM POULTRY PROCESSING SUPERVISOR) P athologist Signature HX Fleming % 9.1 [facility] Specimen (Source) Anatomical Collection Method Collection Time Re ceived Time Location / / Volume Laterality 08/09/2012 10:07 AM POULTRY PROCESSING SUPERVISOR Historical Provider LAB BLOOD ADD-ON Performing Organization Address City/State/ZIP Code Phon e Number [facility] Automated Differential (08/09/2012 10:07 AM POULTRY PROCESSING SUPERVISOR) P athologist Signature Lymphocytes 25.3 [facility] Specimen (Source) Anatomical Collection Method Collection Time Re ceived Time Location / / Volume Laterality 08/09/2012 10:07 AM POULTRY PROCESSING SUPERVISOR Historical Provider LAB BLOOD ADD-ON Performing Organization Address City/State/ZIP Code Phon e Number [facility] Automated Differential (08/09/2012 10:07 AM POULTRY PROCESSING SUPERVISOR) P athologist Signature Neutro % 64.0 [facility] Specimen (Source) Anatomical Collection Method Collection Time Re ceived Time Location / / Volume Laterality 08/09/2012 10:07 AM POULTRY PROCESSING SUPERVISOR Historical Provider LAB BLOOD ADD-ON Performing Organization Address City/State/ZIP Code Phon e Number [facility] CBC with Differential (08/09/2012 10:07 AM POULTRY PROCESSING SUPERVISOR) Patholo gist Method Time Signature HXDifferentia Automated [facility] l? Method [facility] Specimen (Source) Anatomical Collection Method Collection Time Re ceived Time Location / / Volume Laterality 08/09/2012 10:07 AM POULTRY PROCESSING SUPERVISOR Historical Provider LAB BLOOD ADD-ON Performing Organization Address City/State/ZIP Code Phon e Number [facility] Platelet Count (08/09/2012 10:07 AM POULTRY PROCESSING SUPERVISOR) P athologist Signature Platelet Count 161 109L [facility] Specimen (Source) Anatomical Collection Method Collection Time Re ceived Time Location / / Volume Laterality 08/09/2012 10:07 AM POULTRY PROCESSING SUPERVISOR Historical Provider LAB BLOOD ADD-ON Performing Organization Address City/State/ZIP Code Phon e Number [facility] RBC SYSMEX (08/09/2012 10:07 AM POULTRY PROCESSING SUPERVISOR) P athologist Signature HX RDW 13.6 [facility] Specimen (Source) Anatomical Collection Method Collection Time Re ceived Time Location / / Volume Laterality 08/09/2012 10:07 AM POULTRY PROCESSING SUPERVISOR Historical Provider LAB URINE ORDERABLES Performing Organization Address City/State/ZIP Code Phon e Number [facility] RBC SYSMEX (08/09/2012 10:07 AM POULTRY PROCESSING SUPERVISOR) P athologist Signature MCHC 33.3 GMDL [facility] Specimen (Source) Anatomical Collection Method Collection Time Re ceived Time Location / / Volume Laterality 08/09/2012 10:07 AM POULTRY PROCESSING SUPERVISOR Historical Provider LAB URINE ORDERABLES Performing Organization Address City/State/ZIP Code Phon e Number [facility] RBC SYSMEX (08/09/2012 10:07 AM POULTRY PROCESSING SUPERVISOR) P athologist Signature MCH 33.5 PG [facility] Specimen (Source) Anatomical Collection Method Collection Time Re ceived Time Location / / Volume Laterality 08/09/2012 10:07 AM POULTRY PROCESSING SUPERVISOR Historical Provider LAB URINE ORDERABLES Performing Organization Address City/State/ZIP Code Phon e Number [facility] Automated Differential (08/09/2012 10:07 AM POULTRY PROCESSING SUPERVISOR) P athologist Signature MCV 101 FL [facility] Specimen (Source) Anatomical Collection Method Collection Time Re ceived Time Location / / Volume Laterality 08/09/2012 10:07 AM POULTRY PROCESSING SUPERVISOR Historical Provider LAB BLOOD ADD-ON Performing Organization Address City/State/ZIP Code Phon e Number [facility] Hematocrit (08/09/2012 10:07 AM POULTRY PROCESSING SUPERVISOR) P athologist Signature Hematocrit 41.7 [facility] Specimen (Source) Anatomical Collection Method Collection Time Re ceived Time Location / / Volume Laterality 08/09/2012 10:07 AM POULTRY PROCESSING SUPERVISOR Historical Provider LAB BLOOD ADD-ON Performing Organization Address City/State/ZIP Code Phon e Number [facility] Hemoglobin (08/09/2012 10:07 AM POULTRY PROCESSING SUPERVISOR) P athologist Signature Hemoglobin 13.9 GMDL [facility] Specimen (Source) Anatomical Collection Method Collection Time Re ceived Time Location / / Volume Laterality 08/09/2012 10:07 AM POULTRY PROCESSING SUPERVISOR Historical Provider LAB BLOOD ADD-ON Performing Organization Address City/[facility]/ZIP Code Phon e Number [facility] RBC SYSMEX (08/09/2012 10:07 AM POULTRY PROCESSING SUPERVISOR) P athologist Signature Erythrocytes 4.15 X10 [facility] Specimen (Source) Anatomical Collection Method Collection Time Re ceived Time Location / / Volume Laterality 08/09/2012 10:07 AM POULTRY PROCESSING SUPERVISOR Historical Provider LAB URINE ORDERABLES Performing Organization Address [facility]/ZIP Code Phon e Number [facility] CBC with Differential (08/09/2012 10:07 AM POULTRY PROCESSING SUPERVISOR) P athologist Signature Leukocytes 3.7 109L [facility] Specimen (Source) Anatomical Collection Method Collection Time Re ceived Time Location / / Volume Laterality 08/09/2012 10:07 AM POULTRY PROCESSING SUPERVISOR Historical Provider LAB BLOOD ADD-ON Performing Organization Address City/State/ZIP Code Phon e Number [facility] documented in this encounter Visit Diagnoses Not on filedocumented in this encounter
--- OUTSIDE RECORDS SUMMARY | 2022-04-25 16:07 | XMS_ITS | Encounter Summary ---
:1975 Author Organization [facility] Address [address] [place] [id number] Care Team Providers Name Role Phone Unavailable Primary Care Provider Unavailable Encounter Details Date Type Department Care Team Description 08/30/[address] [facility] ANTICOAG Provider, His torical Social History Tobacco Use Types Packs/Day Years Used Date Smoking Tobacco: Never Assessed Sex Assigned at Date Recorded Not on file documented as of this encounter Plan of Treatment Not on filedocumented as of this encounter Procedures Procedure Name Priority Date/Time Associated Comments Diagnosis PROTHROMBIN TIME Routine 08/30/2012 10:57 Results for this (PT), P AM FLOAT BUILDER procedure are i n the results section. documented in this encounter Results PT (Prothrombin Time) with INR (08/30/2012 10:57 AM FLOAT BUILDER) P athologist Signature INR 2.28 [facility] Specimen (Source) Anatomical Collection Method Collection Time Re ceived Time Location / / Volume Laterality 08/30/2012 10:57 AM FLOAT BUILDER Historical Provider LAB BLOOD ADD-ON Performing Organization Address City/State/ZIP Code Phon e Number [facility] documented in this encounter Visit Diagnoses Not on filedocumented in this encounter
--- OUTSIDE RECORDS SUMMARY | 2022-04-25 16:08 | XMS_ITS | Encounter Summary ---
:1975 Author Organization [facility] Address [address] [place] [id number] Care Team Providers Name Role Phone Unavailable Primary Care Provider Unavailable Encounter Details Date Type Department Care Team Description 11/29/[address] [facility] ANTICOAG Provider, His torical Social History Tobacco Use Types Packs/Day Years Used Date Smoking Tobacco: Never Assessed Sex Assigned at Date Recorded Not on file documented as of this encounter Plan of Treatment Not on filedocumented as of this encounter Procedures Procedure Name Priority Date/Time Associated Comments Diagnosis PROTHROMBIN TIME Routine 11/29/2011 10:07 Results for this (PT), P AM CDT procedure are i n the results section. documented in this encounter Results PT (Prothrombin Time) with INR (11/29/2011 10:07 AM CDT) P athologist Signature INR 2.52 [facility] Specimen (Source) Anatomical Collection Method Collection Time Re ceived Time Location / / Volume Laterality 11/29/2011 10:07 AM CDT Historical Provider LAB BLOOD ADD-ON Performing Organization Address City/State/ZIP Code Phon e Number [facility] documented in this encounter Visit Diagnoses Not on filedocumented in this encounter
--- OUTSIDE RECORDS SUMMARY | 2022-04-25 16:08 | XMS_ITS | Encounter Summary ---
:1975 Author Organization [facility] Address [address] [place] [address] Care Team Providers Name Role Phone Unavailable Primary Care Provider Unavailable Encounter Details Date Type Department Care Team Description 07/05/2012 Hospital Encounter [facility] ANTICOAG Provider, His torical Social History Tobacco Use Types Packs/Day Years Used Date Smoking Tobacco: Never Assessed Sex Assigned at Date Recorded Not on file documented as of this encounter Plan of Treatment Not on filedocumented as of this encounter Procedures Procedure Name Priority Date/Time Associated Comments Diagnosis PROTHROMBIN TIME Routine 07/05/2012 10:06 Results for this (PT), P AM SHOE STITCHER ODD procedure are i n the results section. documented in this encounter Results PT (Prothrombin Time) with INR (07/05/2012 10:06 AM SHOE STITCHER ODD) P athologist Signature INR 3.17 [facility] Specimen (Source) Anatomical Collection Method Collection Time Re ceived Time Location / / Volume Laterality 07/05/2012 10:06 AM SHOE STITCHER ODD Historical Provider LAB BLOOD ADD-ON Performing Organization Address City/State/ZIP Code Phon e Number [facility] documented in this encounter Visit Diagnoses Not on filedocumented in this encounter
--- OUTSIDE RECORDS SUMMARY | 2022-04-25 16:08 | XMS_ITS | Encounter Summary ---
:1975 Author Organization [facility] Address [address] [place] [address] Care Team Providers Name Role Phone Unavailable Primary Care Provider Unavailable Encounter Details Date Type Department Care Team Description 03/05/2012 Hospital Encounter HX [facility] Marsha Garibay M.D. [address] [place], [place] [address] (Wo rk) Social History Tobacco Use Types Packs/Day Years Used Date Smoking Tobacco: Never Assessed Sex Assigned at Date Recorded Not on file documented as of this encounter Progress Notes Sridhar Garibay M.D. - 03/05/2012 3:30 PM CDT [id number] This office note has been dictated. Source: [facility] Document Id: [id number] Electronically signed by Conversion, [facility] Anthropology Professor [id number] at 11/26/2016 4:07 PM CDT Sridhar Garibay M.D. - 03/05/2012 3:30 PM CDT [id number] CLINIC ENCOUNTER SUBJECTIVE: Patient presents today for an abnormal thyroid test. She apparently saw another doctor and had a mildly abnormal thyroid test. It was repeated here recently and had improved and was just outside the normal range with a TSH of 5.69. Her free T4 was normal and thyroglobulin antibody was negative and thyroid peroxidase antibody negative. She has no symptoms. No other complaints. OBJECTIVE: General: Patient alert and oriented, pleasant [...] throughout. Reflexes are 2+ and symmetric. ASSESSMENT: Elevated TSH, resolving, possibly subacute thyroiditis. PLAN: Her antibodies are negative so she does not have Mary Ann's and would not expect any need for long-term Synthroid. She may have had a subacute thyroiditis viral etiology or perhaps just a mild lab abnormality. In other words, it could be nothing. She could have a repeat TSH at her next physical but I have no concerns at this point. Patient reassured. Sridhar Garibay M.D. RADAMES/st/law cc: Source: [facility] RWHXTRANSXRTFSYS Document Id: [id number] documented in this encounter Plan of Treatment Not on filedocumented as of this encounter Visit Diagnoses Not on filedocumented in this encounter
--- OUTSIDE RECORDS SUMMARY | 2022-04-25 16:08 | XMS_ITS | Encounter Summary ---
:1975 Author Organization [facility] Address [address] [place] [address] Care Team Providers Name Role Phone Unavailable Primary Care Provider Unavailable Encounter Details Date Type Department Care Team Description 12/29/2011 Hospital Encounter HX [facility] Antonia Jenkins RMichaelNMichael Social History Tobacco Use Types Packs/Day Years Used Date Smoking Tobacco: Never Assessed Sex Assigned at Date Recorded Not on file documented as of this encounter Plan of Treatment Not on filedocumented as of this encounter Visit Diagnoses Not on filedocumented in this encounter
--- OUTSIDE RECORDS SUMMARY | 2022-04-25 16:08 | XMS_ITS | Encounter Summary ---
:1975 Author Organization [facility] Address [address] [place] [address] Care Team Providers Name Role Phone Unavailable Primary Care Provider Unavailable Encounter Details Date Type Department Care Team Description 12/27/2011 Hospital Encounter HX NO MAPPING Jose Enrique Peng P .A.-C. Social History Tobacco Use Types Packs/Day Years Used Date Smoking Tobacco: Never Assessed Sex Assigned at Date Recorded Not on file documented as of this encounter Progress Notes Jose Enrique Peng - 12/27/2011 4:45 PM CDT [id number] SUBJECTIVE: downs patient She has about a 2-3 inch area of redness behind her right calf that came on over the past day. It looks like topical cellulitis, but her staff member states this is how the previous DVT started. PHYSICAL EXAMINATION:pleasant lady Her right leg reveals superficial thrombus, but nothing in the deep area. The patient is on therapeutic level of Coumadin. 2 inch of Rt post calf cellulitis Discussed the case with family practice physician Dr. Delatorre since the patient's PCP Dr. Garibay was gone this evening. ASSESSMENT/PLAN: 1. Mild cellulitis right calf. 2. Mild superficial thrombophlebitis, on Coumadin therapy. PLAN: The patient will be started on Keflex 500 b.i.d. for a ten day course. Continue on Coumadin. INR check in 3-5 days. Reassurance. Recheck p.r.n. any increasing redness or swelling. The patient has Downs Syndrome and _is here with her father and he is so advised. KARMEN Pena/libia Source: KRISTI RWMCHXTRANSXRTFSYS Document Id: [id number] documented in this encounter Plan of Treatment Not on filedocumented as of this encounter Visit Diagnoses Not on filedocumented in this encounter
--- OUTSIDE RECORDS SUMMARY | 2022-04-25 16:08 | XMS_ITS | Encounter Summary ---
:1975 Author Organization [facility] Address [address] [place] [address] Care Team Providers Name Role Phone Unavailable Primary Care Provider Unavailable Encounter Details Date Type Department Care Team Description 02/03/2012 Hospital Encounter [facility] Mima Malagon RMichaelNMichael [address] [place] [phone] Social History Tobacco Use Types Packs/Day Years Used Date Smoking Tobacco: Never Assessed Sex Assigned at Date Recorded Not on file documented as of this encounter Plan of Treatment Not on filedocumented as of this encounter Visit Diagnoses Not on filedocumented in this encounter
--- OUTSIDE RECORDS SUMMARY | 2022-04-25 16:08 | XMS_ITS | Encounter Summary ---
:1975 Author Organization [facility] Address [address] [place] [address] Care Team Providers Name Role Phone Unavailable Primary Care Provider Unavailable Encounter Details Date Type Department Care Team Description 02/07/2012 Hospital Encounter [facility] ANTICO[facility] Provider, His torical Social History Tobacco Use Types Packs/Day Years Used Date Smoking Tobacco: Never Assessed Sex Assigned at Date Recorded Not on file documented as of this encounter Plan of Treatment Not on filedocumented as of this encounter Procedures Procedure Name Priority Date/Time Associated Comments Diagnosis PROTHROMBIN TIME Routine 02/07/2012 10:08 Results for this (PT), P AM CDT procedure are i n the results section. documented in this encounter Results PT (Prothrombin Time) with INR (02/07/2012 10:08 AM CDT) P athologist Signature INR 2.28 [facility] Specimen (Source) Anatomical Collection Method Collection Time Re ceived Time Location / / Volume Laterality 02/07/2012 10:08 AM CDT Historical Provider LAB BLOOD ADD-ON Performing Organization Address City/State/ZIP Code Phon e Number [facility] documented in this encounter Visit Diagnoses Not on filedocumented in this encounter
--- OUTSIDE RECORDS SUMMARY | 2022-04-25 16:08 | XMS_ITS | Encounter Summary ---
:1975 Author Organization [facility] Address [address] [place] [address] Care Team Providers Name Role Phone Unavailable Primary Care Provider Unavailable Encounter Details Date Type Department Care Team Description 12/30/2011 Hospital Encounter [facility] ANTICOAG Provider, His torical Social History Tobacco Use Types Packs/Day Years Used Date Smoking Tobacco: Never Assessed Sex Assigned at Date Recorded Not on file documented as of this encounter Miscellaneous Notes Miscellaneous - Ermelinda Casas RViktor - 12/30/2011 8:15 AM CDT [id number] Hue Bellamy Carol [address] [facility] [id number] December 30, 2011 Dear Ms. Hue Medina: Your Lab today was: INR 3.03 12/30/2011 Your target range for your condition is: 2 - 3 You should: CHANGE YOUR COUMADIN DOSE Your Coumadin Tablet Strength should be: 5 mg Daily Dose: SUN:2.5mg MON:2.5mg TUE:5mg WED:2.5mg THUR:5mg FRI:2.5mg SAT:2.5mg Number of Pills to take each day: SUN:2 MON:1/2 TUE:1 WED:2 THUR:1 FRI:2 SAT:1/2 Your next lab appointment is scheduled for: 01/10/12 at [facility] [place] [facility]. [facility] labs should be drawn before 3:00 PM. [place] and [facility] labs should be drawn before 4:00 PM. If you have questions regarding any of the above information or feel the information is not accurateplease call [phone] or [phone]. [phone]. Thank you, Ermelinda Casas [facility] [place] [facility] staff: Eliana Farooq, RN; Antonia Mcclellan, RN; Fina Peres, RN; Ermelinda Casas, RN; Mima Campo, RN; Love Medina, RN Source: [facility] RWHXTRANSXRTFSYS Document Id: [id number] Electronically signed by Conversion, [facility] Concrete Block Plant Supervisor [id number] at 11/26/2016 12:49 PM CDT documented in this encounter Plan of Treatment Not on filedocumented as of this encounter Procedures Procedure Name Priority Date/Time Associated Comments Diagnosis PROTHROMBIN TIME Routine 12/30/2011 8:59 AM Resul ts for this (PT), P CDT procedure are i n the results section. documented in this encounter Results PT (Prothrombin Time) with INR (12/30/2011 8:59 AM CDT) P athologist Signature INR 3.03 [facility] Specimen (Source) Anatomical Collection Method Collection Time Re ceived Time Location / / Volume Laterality 12/30/2011 8:59 AM CDT Historical Provider LAB BLOOD ADD-ON Performing Organization Address City/State/ZIP Code Phon e Number [facility] documented in this encounter Visit Diagnoses Not on filedocumented in this encounter
--- OUTSIDE RECORDS SUMMARY | 2022-04-25 16:08 | XMS_ITS | Encounter Summary ---
:1975 Author Organization [facility] Address [address] [place] [address] Care Team Providers Name Role Phone Unavailable Primary Care Provider Unavailable Encounter Details Date Type Department Care Team Description 06/21/2012 Hospital Encounter HX [facility] ANTICOAG Provider, His torical Social History Tobacco Use Types Packs/Day Years Used Date Smoking Tobacco: Never Assessed Sex Assigned at Date Recorded Not on file documented as of this encounter Plan of Treatment Not on filedocumented as of this encounter Procedures Procedure Name Priority Date/Time Associated Comments Diagnosis PROTHROMBIN TIME Routine 06/21/2012 10:36 Results for this (PT), P AM BRAND ACTIVATION MANAGER procedure are i n the results section. documented in this encounter Results PT (Prothrombin Time) with INR (06/21/2012 10:36 AM BRAND ACTIVATION MANAGER) P athologist Signature INR 3.48 [facility] Specimen (Source) Anatomical Collection Method Collection Time Re ceived Time Location / / Volume Laterality 06/21/2012 10:36 AM BRAND ACTIVATION MANAGER Narrative [facility] - 08/25/19 14 10:18 AM BRAND ACTIVATION MANAGER Results confirmed by repeat test Historical Provider LAB BLOOD ADD-ON Performing Organization Address City/State/ZIP Code Phon e Number [facility] documented in this encounter Visit Diagnoses Not on filedocumented in this encounter
--- OUTSIDE RECORDS SUMMARY | 2022-04-25 16:08 | XMS_ITS | Encounter Summary ---
:1975 Author Organization [facility] Address [address] [place] [address] Care Team Providers Name Role Phone Unavailable Primary Care Provider Unavailable Encounter Details Date Type Department Care Team Description 02/28/2012 Hospital Encounter [facility] ANTICOAG Provider, His torical Social History Tobacco Use Types Packs/Day Years Used Date Smoking Tobacco: Never Assessed Sex Assigned at Date Recorded Not on file documented as of this encounter Plan of Treatment Not on filedocumented as of this encounter Procedures Procedure Name Priority Date/Time Associated Comments Diagnosis PROTHROMBIN TIME Routine 02/28/2012 12:06 Results for this (PT), P PM CDT procedure are i n the results section. documented in this encounter Results PT (Prothrombin Time) with INR (02/28/2012 12:06 PM CDT) P athologist Signature INR 2.05 [facility] Specimen (Source) Anatomical Collection Method Collection Time Re ceived Time Location / / Volume Laterality 02/28/2012 12:06 PM CDT Historical Provider LAB BLOOD ADD-ON Performing Organization Address City/State/ZIP Code Phon e Number [facility] documented in this encounter Visit Diagnoses Not on filedocumented in this encounter
--- OUTSIDE RECORDS SUMMARY | 2022-04-25 16:08 | XMS_ITS | Encounter Summary ---
:1975 Author Organization [facility] Address [address] [place] [address] Care Team Providers Name Role Phone Unavailable Primary Care Provider Unavailable Encounter Details Date Type Department Care Team Description 06/12/2012 Hospital Encounter [facility] ANTICOAG Provider, His torical Social History Tobacco Use Types Packs/Day Years Used Date Smoking Tobacco: Never Assessed Sex Assigned at Date Recorded Not on file documented as of this encounter Plan of Treatment Not on filedocumented as of this encounter Procedures Procedure Name Priority Date/Time Associated Comments Diagnosis PROTHROMBIN TIME Routine 06/12/2012 10:59 Results for this (PT), P AM EXPORT PACKER procedure are i n the results section. documented in this encounter Results PT (Prothrombin Time) with INR (06/12/2012 10:59 AM EXPORT PACKER) P athologist Signature INR 1.58 [facility] Specimen (Source) Anatomical Collection Method Collection Time Re ceived Time Location / / Volume Laterality 06/12/2012 10:59 AM EXPORT PACKER Historical Provider LAB BLOOD ADD-ON Performing Organization Address City/State/ZIP Code Phon e Number [facility] documented in this encounter Visit Diagnoses Not on filedocumented in this encounter
--- OUTSIDE RECORDS SUMMARY | 2022-04-25 16:08 | XMS_ITS | Encounter Summary ---
:1975 Author Organization [facility] Address [address] [place] [address] Care Team Providers Name Role Phone Unavailable Primary Care Provider Unavailable Encounter Details Date Type Department Care Team Description 06/05/2012 Hospital Encounter HX [facility] ANTICOAG Provider, His torical Social History Tobacco Use Types Packs/Day Years Used Date Smoking Tobacco: Never Assessed Sex Assigned at Date Recorded Not on file documented as of this encounter Plan of Treatment Not on filedocumented as of this encounter Procedures Procedure Name Priority Date/Time Associated Comments Diagnosis PROTHROMBIN TIME Routine 06/05/2012 10:01 Results for this (PT), P AM UNLOADER 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 documented in this encounter Results PT (Prothrombin Time) with INR (06/05/2012 10:01 AM UNLOADER OPERATOR) P athologist Signature INR 1.60 [facility] Specimen (Source) Anatomical Collection Method Collection Time Re ceived Time Location / / Volume Laterality 06/05/2012 10:01 AM UNLOADER OPERATOR Historical Provider LAB BLOOD ADD-ON Performing Organization Address City/State/ZIP Code Phon e Number [facility] documented in this encounter Visit Diagnoses Not on filedocumented in this encounter
--- OUTSIDE RECORDS SUMMARY | 2022-04-25 16:08 | XMS_ITS | Encounter Summary ---
:1975 Author Organization [facility] Address [address] [place] [address] Care Team Providers Name Role Phone Unavailable Primary Care Provider Unavailable Encounter Details Date Type Department Care Team Description 05/08/2012 Hospital Encounter HX [facility] ANTICOAG Provider, His torical Social History Tobacco Use Types Packs/Day Years Used Date Smoking Tobacco: Never Assessed Sex Assigned at Date Recorded Not on file documented as of this encounter Plan of Treatment Not on filedocumented as of this encounter Procedures Procedure Name Priority Date/Time Associated Comments Diagnosis PROTHROMBIN TIME Routine 05/08/2012 9:38 AM Resul ts for this (PT), P AUTOMOTIVE WORKER procedure are i n the results section. documented in this encounter Results PT (Prothrombin Time) with INR (05/08/2012 9:38 AM AUTOMOTIVE WORKER) P athologist Signature INR 1.47 [facility] Specimen (Source) Anatomical Collection Method Collection Time Re ceived Time Location / / Volume Laterality 05/08/2012 9:38 AM AUTOMOTIVE WORKER Historical Provider LAB BLOOD ADD-ON Performing Organization Address City/State/ZIP Code Phon e Number [facility] documented in this encounter Visit Diagnoses Not on filedocumented in this encounter
--- OUTSIDE RECORDS SUMMARY | 2022-04-25 16:08 | XMS_ITS | Encounter Summary ---
:1975 Author Organization [facility] Address [address] [place] [address] Care Team Providers Name Role Phone Unavailable Primary Care Provider Unavailable Encounter Details Date Type Department Care Team Description 03/27/2012 Hospital Encounter [facility] ANTICOAG Provider, His torical Social History Tobacco Use Types Packs/Day Years Used Date Smoking Tobacco: Never Assessed Sex Assigned at Date Recorded Not on file documented as of this encounter Plan of Treatment Not on filedocumented as of this encounter Procedures Procedure Name Priority Date/Time Associated Comments Diagnosis PROTHROMBIN TIME Routine 03/27/2012 9:28 AM Resul ts for this (PT), P CDT procedure are i n the results section. documented in this encounter Results PT (Prothrombin Time) with INR (03/27/2012 9:28 AM CDT) P athologist Signature INR 1.75 [facility] Specimen (Source) Anatomical Collection Method Collection Time Re ceived Time Location / / Volume Laterality 03/27/2012 9:28 AM CDT Historical Provider LAB BLOOD ADD-ON Performing Organization Address City/State/ZIP Code Phon e Number [facility] documented in this encounter Visit Diagnoses Not on filedocumented in this encounter
--- OUTSIDE RECORDS SUMMARY | 2022-04-25 16:08 | XMS_ITS | Encounter Summary ---
:1975 Author Organization [facility] Address [address] [place] [address] Care Team Providers Name Role Phone Unavailable Primary Care Provider Unavailable Encounter Details Date Type Department Care Team Description 12/27/2011 Hospital Encounter HX NO MAPPING Jose Enrique Peng, P MichaelAMichael-C. Social History Tobacco Use Types Packs/Day Years Used Date Smoking Tobacco: Never Assessed Sex Assigned at Date Recorded Not on file documented as of this encounter Plan of Treatment Not on filedocumented as of this encounter Visit Diagnoses Not on filedocumented in this encounter
--- OUTSIDE RECORDS SUMMARY | 2022-04-25 16:08 | XMS_ITS | Encounter Summary ---
:1975 Author Organization [facility] Address [address] [place] [address] Care Team Providers Name Role Phone Unavailable Primary Care Provider Unavailable Encounter Details Date Type Department Care Team Description 05/15/2012 Hospital Encounter HX [facility] ANTICOAG Provider, His torical Social History Tobacco Use Types Packs/Day Years Used Date Smoking Tobacco: Never Assessed Sex Assigned at Date Recorded Not on file documented as of this encounter Plan of Treatment Not on filedocumented as of this encounter Procedures Procedure Name Priority Date/Time Associated Comments Diagnosis PROTHROMBIN TIME Routine 05/15/2012 10:01 Results for this (PT), P AM HEAD PASTRY CHEF procedure are i n the results section. documented in this encounter Results PT (Prothrombin Time) with INR (05/15/2012 10:01 AM HEAD PASTRY CHEF) P athologist Signature INR 2.73 [facility] Specimen (Source) Anatomical Collection Method Collection Time Re ceived Time Location / / Volume Laterality 05/15/2012 10:01 AM HEAD PASTRY CHEF Historical Provider LAB BLOOD ADD-ON Performing Organization Address City/State/ZIP Code Phon e Number [facility] documented in this encounter Visit Diagnoses Not on filedocumented in this encounter
--- OUTSIDE RECORDS SUMMARY | 2022-04-25 16:08 | XMS_ITS | Encounter Summary ---
:1975 Author Organization [facility] Address [address] [place] [address] Care Team Providers Name Role Phone Unavailable Primary Care Provider Unavailable Encounter Details Date Type Department Care Team Description 12/23/2011 Hospital Encounter HX [facility]ILY[facility] Valentina Abdi R.N. [address] [place] [id number] Social History Tobacco Use Types Packs/Day Years Used Date Smoking Tobacco: Never Assessed Sex Assigned at Date Recorded Not on file documented as of this encounter Miscellaneous Notes Telephone Encounter - Candelaria Abdi, R.N. - 12/23/2011 12:00 AM CDT Situation/What is the patients concern/need: Pt calling into report that her period is 5 days late. Pt states that there is no chance that she is. Pt states that she shook shave a hx of irregular menses. Recommendation/Patient Request: Pt advised to call back if menses is absent for 3 months or more. Pt also advised to call back if symptoms occur. Pt verbalized understanding of all information. Source: [facility] Document Id: [id number] documented in this encounter Plan of Treatment Not on filedocumented as of this encounter Visit Diagnoses Not on filedocumented in this encounter
--- OUTSIDE RECORDS SUMMARY | 2022-04-25 16:08 | XMS_ITS | Encounter Summary ---
:1975 Author Organization [facility] Address [address] [place] [address] Care Team Providers Name Role Phone Unavailable Primary Care Provider Unavailable Encounter Details Date Type Department Care Team Description 2012 Hospital Encounter HX [facility] Provider, Historic al Social History Tobacco Use Types Packs/Day Years Used Date Smoking Tobacco: Never Assessed Sex Assigned at Date Recorded Not on file documented as of this encounter Miscellaneous Notes Miscellaneous - Sridhar Garibay M.D. - 2012 8:40 AM CDT [id number] Quick Note: Please call pt. Plan was to do labs and then see me. Please have her see me for recheck of thyroid. Source[facility] Document Id: [id number] Electronically signed by Conversion, [facility] Gum Scoring Machine Operator [id number] at 11/26/2016 4:31 PM CDT documented in this encounter Plan of Treatment Not on filedocumented as of this encounter Procedures Procedure Name Priority Date/Time Associated Comments Diagnosis THYROPEROXIDASE AB, S Routine 01/11/2012 11:56 Re sults for this AM CDT procedure are i n the results section. THYROGLOBULIN AB, S Routine 01/11/2012 11:56 Resu lts for this AM CDT procedure are i n the results section. THYROID-STIMULATING Routine 2012 11:45 Resu lts for this HORMONE-SENSITIVE AM CDT procedure are in (S-TSH) the results section. T4 (THYROXINE), FREE, S Routine 2012 11:45 Results for this AM CDT procedure are i n the results section. PROTHROMBIN TIME (PT), P Routine 2012 11:10 Results for this AM CDT procedure are i n the results section. documented in this encounter Results Thyroglobulin Antibody (01/11/2012 11:56 AM CDT) Analysis Performed At Patho logist Time Signature Thyroglobulin <20 IUML [facility] Antibody, S [facility] Specimen (Source) Anatomical Collection Method Collection Time Re ceived Time Location / / Volume Laterality 01/11/2012 11:56 AM CDT Historical Provider LAB BLOOD NON ADD-ON Performing Organization Address City/State/ZIP Code Phon e Number [facility] Thyroperoxidase (TPO) Antibodies, Serum (01/11/2012 11:56 AM CDT) Patholo gist Method Time Signature Thyroperoxidase Ab, <10 IUML [facility] Specimen (Source) Anatomical Collection Method Collection Time Re ceived Time Location / / Volume Laterality 01/11/2012 11:56 AM CDT Historical Provider LAB BLOOD NON ADD-ON Performing Organization Address City/State/ZIP Code Phon e Number [facility] T4 (Thyroxine), Free (2012 11:45 AM CDT) P athologist Signature T4 (Thyroxine), 0.91 NGDL [facility] Free, S [facility] Specimen (Source) Anatomical Collection Method Collection Time Re ceived Time Location / / Volume Laterality 2012 11:45 AM CDT Historical Provider LAB BLOOD ADD-ON Performing Organization Address City/State/ZIP Code Phon e Number [facility] S-TSH (Thyroid-Stimulating Hormone - Sensitive) (2012 11:45 AM CDT) P athologist Signature TSH 5.69 MUNITL [facility] (Thyrotropin) [facility] Specimen (Source) Anatomical Collection Method Collection Time Re ceived Time Location / / Volume Laterality 2012 11:45 AM CDT Historical Provider LAB BLOOD ADD-ON Performing Organization Address City/State/ZIP Code Phon e Number [facility] PT (Prothrombin Time) with INR (2012 11:10 AM CDT) P athologist Signature INR 2.30 [facility] Specimen (Source) Anatomical Collection Method Collection Time Re ceived Time Location / / Volume Laterality 2012 11:10 AM CDT Historical Provider LAB BLOOD ADD-ON Performing Organization Address City/State/ZIP Code Phon e Number [facility] documented in this encounter Visit Diagnoses Not on filedocumented in this encounter
--- OUTSIDE RECORDS SUMMARY | 2022-04-25 16:08 | XMS_ITS | Encounter Summary ---
:1975 Author Organization [facility] Address [address] [place] [address] Care Team Providers Name Role Phone Unavailable Primary Care Provider Unavailable Encounter Details Date Type Department Care Team Description 05/22/2012 Hospital Encounter HX [facility] Provider, His torical Social History Tobacco Use Types Packs/Day Years Used Date Smoking Tobacco: Never Assessed Sex Assigned at Date Recorded Not on file documented as of this encounter Plan of Treatment Not on filedocumented as of this encounter Procedures Procedure Name Priority Date/Time Associated Comments Diagnosis PROTHROMBIN TIME Routine 05/22/2012 9:54 AM Resul ts for this (PT), P MANAGER THERAPY procedure are i n the results section. documented in this encounter Results PT (Prothrombin Time) with INR (05/22/2012 9:54 AM MANAGER THERAPY) P athologist Signature INR 2.76 [facility] Specimen (Source) Anatomical Collection Method Collection Time Re ceived Time Location / / Volume Laterality 05/22/2012 9:54 AM MANAGER THERAPY Historical Provider LAB BLOOD ADD-ON Performing Organization Address City/State/ZIP Code Phon e Number [facility] documented in this encounter Visit Diagnoses Not on filedocumented in this encounter
--- OUTSIDE RECORDS SUMMARY | 2022-04-25 16:08 | XMS_ITS | Encounter Summary ---
:1975 Author Organization [facility] Address [address] [place] [address] Care Team Providers Name Role Phone Unavailable [...]
--- OUTSIDE RECORDS SUMMARY | 2022-04-25 16:08 | XMS_ITS | Encounter Summary ---
:1975 Author Organization [facility] Address [address] [place] [address] Care Team Providers Name Role Phone Unavailable Primary Care Provider Unavailable Encounter Details Date Type Department Care Team Description 12/27/2011 Hospital Encounter H[facility] Provider, His torical Social History Tobacco Use Types Packs/Day Years Used Date Smoking Tobacco: Never Assessed Sex Assigned at Date Recorded Not on file documented as of this encounter Plan of Treatment Not on filedocumented as of this encounter Procedures Procedure Name Priority Date/Time Associated Comments Diagnosis PROTHROMBIN TIME Routine 12/27/2011 10:20 Results for this (PT), P AM CDT procedure are i n the results section. documented in this encounter Results PT (Prothrombin Time) with INR (12/27/2011 10:20 AM CDT) P athologist Signature INR 2.26 [facility] Specimen (Source) Anatomical Collection Method Collection Time Re ceived Time Location / / Volume Laterality 12/27/2011 10:20 AM CDT Historical Provider LAB BLOOD ADD-ON Performing Organization Address City/State/ZIP Code Phon e Number [facility] documented in this encounter Visit Diagnoses Not on filedocumented in this encounter
--- OUTSIDE RECORDS SUMMARY | 2022-04-25 16:08 | XMS_ITS | Encounter Summary ---
:1975 Author Organization [facility] Address [address] [place] [address] Care Team Providers Name Role Phone Unavailable Primary Care Provider Unavailable Encounter Details Date Type Department Care Team Description 01/24/2012 Hospital Encounter HX [facility]TICO[facility] Provider, His torical Social History Tobacco Use Types Packs/Day Years Used Date Smoking Tobacco: Never Assessed Sex Assigned at Date Recorded Not on file documented as of this encounter Plan of Treatment Not on filedocumented as of this encounter Procedures Procedure Name Priority Date/Time Associated Comments Diagnosis PROTHROMBIN TIME Routine 01/24/2012 9:51 AM Resul ts for this (PT), P CDT procedure are i n the results section. documented in this encounter Results PT (Prothrombin Time) with INR (01/24/2012 9:51 AM CDT) P athologist Signature INR 1.94 [facility] Specimen (Source) Anatomical Collection Method Collection Time Re ceived Time Location / / Volume Laterality 01/24/2012 9:51 AM CDT Historical Provider LAB BLOOD ADD-ON Performing Organization Address City/State/ZIP Code Phon e Number [facility] documented in this encounter Visit Diagnoses Not on filedocumented in this encounter
--- OUTSIDE RECORDS SUMMARY | 2022-04-25 16:09 | XMS_ITS | Encounter Summary ---
:1975 Author Organization [facility] Address [address] [place] [address] Care Team Providers Name Role Phone Unavailable Primary Care Provider Unavailable Encounter Details Date Type Department Care Team Description 11/08/2011 Hospital Encounter [facility]ha Garibay M.D. [address] [place], [place] [address] (Wo rk) Social History Tobacco Use Types Packs/Day Years Used Date Smoking Tobacco: Never Assessed Sex Assigned at Date Recorded Not on file documented as of this encounter Progress Notes Sridhar Garibay M.D. - 11/08/2011 10:30 AM CDT [id number] CLINIC ENCOUNTER SUBJECTIVE: The patient presents today for a camp physical. She feels like her ears are plugged with wax. She has had this before. Also apparently has some history of psoriasis. According to her mother she had a history of psoriasis. She uses Kenalog cream for this. She has a history of deep venous thrombosis (DVT) and protein S deficiency and saw Dr. Anna Riley. She is on lifelong Coumadin. Also has a history of hyperlipidemia and hyperglycemia. She was seen for a RANGE TECHNICIAN visit in June and at that time she had an elevated TSH of 7.04 and normal free T4. Her glucose was normal and does have hyperlipidemia diet controlled. She was sent a letter regarding her lab results and they suggested rechecking thyroid in a year. PAST MEDICAL HISTORY, FAMILY HISTORY, SOCIAL HISTORY, MEDICATIONS AND ALLERGIES: Are reviewed. REVIEW OF SYSTEMS: General, eyes, ENT, neck, [...] Reflexes are 2+ and symmetric. ASSESSMENT: 1. [employer] physical. 2. Elevated TSH during recent RANGE TECHNICIAN examination. 3. Hyperlipidemia. 4. Hyperglycemia. 5. Cerumen impaction. 6. History of psoriasis. 7. History of venostasis edema. 8. 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 PLAN: Will do ear wash today. She will follow up in three months and can recheck TSH, T4 and antibodies at that time. She has had no symptoms of hypothyroidism and has actually lost some weight. Continue Kenalog as needed for her psoriasis. She will continue her efforts with diet and exercise. Otherwise continue Coumadin lifelong and should use her Jobst stockings for her mild edema. Sridhar Garibay M.D. RADAMES/jessie cc: Source: [facility] Document Id: [id number] Electronically signed by Conversion, [facility] Manual Arts Therapy Teacher [id number] at 11/26/2016 6:06 PM CDT Sridhar Garibay M.D. - 11/08/2011 10:30 AM CDT [id number] This office note has been dictated. Source: [facility] Document Id: [id number] Electronically signed by Conversion, [facility] Manual Arts Therapy Teacher [id number] at 11/26/2016 6:06 PM CDT documented in this encounter Plan of Treatment Not on filedocumented as of this encounter Visit Diagnoses Not on filedocumented in this encounter
--- OUTSIDE RECORDS SUMMARY | 2022-04-25 16:09 | XMS_ITS | Encounter Summary ---
:1975 Author Organization [facility] Address [address] [place] [address] Care Team Providers Name Role Phone Unavailable Primary Care Provider Unavailable Encounter Details Date Type Department Care Team Description 12/28/2010 Hospital Encounter HX [facility] Provider, His torical Social History Tobacco Use Types Packs/Day Years Used Date Smoking Tobacco: Never Assessed Sex Assigned at Date Recorded Not on file documented as of this encounter Plan of Treatment Not on filedocumented as of this encounter Visit Diagnoses Not on filedocumented in this encounter
--- OUTSIDE RECORDS SUMMARY | 2022-04-25 16:09 | XMS_ITS | Encounter Summary ---
:1975 Author Organization [facility] Address [address] [place] [address] Care Team Providers Name Role Phone Unavailable Primary Care Provider Unavailable Encounter Details Date Type Department Care Team Description 08/14/2011 Hospital Encounter HX [facility] Marsha Lim M.D. [address] [place], [place] [address] (Wo rk) Social History Tobacco Use Types Packs/Day Years Used Date Smoking Tobacco: Never Assessed Sex Assigned at Date Recorded Not on file documented as of this encounter Miscellaneous Notes Telephone Encounter - Conversion, Historical Provider Ser - 08/14/2011 12:00 AM CST [id number] Faxed request from pharmacy,will be directly faxed back if approved. PCP KHOI: 07/05/2010 Last visit: BP Readings from Last 1 Encounters: 07/25/11 112/64 INR 2.31 08/02/2011 Diabetes Labs: No results found for this basename: A1C LDL 137 08/02/2011 TSH 7.04 08/02/2011 CAD/HTN and/or CHF labs: CR 1.24 06/08/2007 POTASSIUM 3.8 06/08/2007 Hypercholesterolemia Labs: No results found for this basename: ast No results found for this basename: alt CHOL 207 08/02/2011 TRIG 139 08/02/2011 HDL 42 08/02/2011 LDL 137 08/02/2011 Please close encounter when finished; thank you. Source: [facility] Document Id: [id number] Telephone Encounter - Antonia Mcclellan R.N. - 08/14/2011 12:00 AM CST [id number] Prescription approved per RN refill protocol. . Source: [facility] RWHXTRANSXRTFSYS Document Id: [id number] Electronically signed by Conversion, [facility] Tape Recording Machine Operator [id number] at 11/26/2016 6:53 PM CDT documented in this encounter Plan of Treatment Not on filedocumented as of this encounter Visit Diagnoses Not on filedocumented in this encounter
--- OUTSIDE RECORDS SUMMARY | 2022-04-25 16:09 | XMS_ITS | Encounter Summary ---
:1975 Author Organization [facility] Address [address] [place] [address] Care Team Providers Name Role Phone Unavailable Primary Care Provider Unavailable Encounter Details Date Type Department Care Team Description 02/15/2011 Hospital Encounter HX [facility] ANTICOAG Provider, His torical Social History Tobacco Use Types Packs/Day Years Used Date Smoking Tobacco: Never Assessed Sex Assigned at Date Recorded Not on file documented as of this encounter Plan of Treatment Not on filedocumented as of this encounter Visit Diagnoses Not on filedocumented in this encounter
--- OUTSIDE RECORDS SUMMARY | 2022-04-25 16:09 | XMS_ITS | Encounter Summary ---
:1975 Author Organization [facility] Address [address] [place] [address] Care Team Providers Name Role Phone Unavailable Primary Care Provider Unavailable Encounter Details Date Type Department Care Team Description 07/18/2011 Hospital Encounter HX [facility] Marsha Garibay M.D. [address] [place], [place] [address] (Wo rk) Social History Tobacco Use Types Packs/Day Years Used Date Smoking Tobacco: Never Assessed Sex Assigned at Date Recorded Not on file documented as of this encounter Miscellaneous Notes Telephone Encounter - Conversion, Historical Provider Ser - 07/18/2011 12:00 AM CST [id number] Faxed request from pharmacy,will be directly faxed back if approved. Please close encounter when finished; thank you. Source: [facility] Document Id: [id number] Telephone Encounter - Mirella Johnson R.N. - 07/18/2011 12:00 AM GEOLOGY INSTRUCTOR [id number] Last visit: BP Readings from Last 1 Encounters: 09/24/10 92/54 Unable to approve medication per the RN refill protocol due to: - Incomplete labs with exclusionary diagnosis. PCP please review Hypercholesterolemia Labs: No results found for this basename: ast No results found for this basename: alt CHOL 218 07/20/2010 TRIG 87 07/20/2010 HDL 50 07/20/2010 LDL 151 07/20/2010 GLC 104 07/20/2010 Source: [facility] RWMCHXTRANSXRTFSYS Document Id: [id number] documented in this encounter Plan of Treatment Not on filedocumented as of this encounter Visit Diagnoses Not on filedocumented in this encounter
--- OUTSIDE RECORDS SUMMARY | 2022-04-25 16:09 | XMS_ITS | Encounter Summary ---
:1975 Author Organization [facility] Address [address] [place] [address] Care Team Providers Name Role Phone Unavailable Primary Care Provider Unavailable Encounter Details Date Type Department Care Team Description 03/15/2011 Hospital Encounter HX [facility] Provider, His torical Social History Tobacco Use Types Packs/Day Years Used Date Smoking Tobacco: Never Assessed Sex Assigned at Date Recorded Not on file documented as of this encounter Plan of Treatment Not on filedocumented as of this encounter Visit Diagnoses Not on filedocumented in this encounter
--- OUTSIDE RECORDS SUMMARY | 2022-04-25 16:09 | XMS_ITS | Encounter Summary ---
:1975 Author Organization [facility] Address [address] [place] [address] Care Team Providers Name Role Phone Unavailable Primary Care Provider Unavailable Encounter Details Date Type Department Care Team Description 11/08/2011 Hospital Encounter HX [facility]TICOAG Provider, His torical Social History Tobacco Use Types Packs/Day Years Used Date Smoking Tobacco: Never Assessed Sex Assigned at Date Recorded Not on file documented as of this encounter Plan of Treatment Not on filedocumented as of this encounter Procedures Procedure Name Priority Date/Time Associated Comments Diagnosis PROTHROMBIN TIME Routine 11/08/2011 9:55 AM Resul ts for this (PT), P CDT procedure are i n the results section. documented in this encounter Results PT (Prothrombin Time) with INR (11/08/2011 9:55 AM CDT) P athologist Signature INR 2.62 [facility] Specimen (Source) Anatomical Collection Method Collection Time Re ceived Time Location / / Volume Laterality 11/08/2011 9:55 AM CDT Historical Provider LAB BLOOD ADD-ON Performing Organization Address City/State/ZIP Code Phon e Number [facility] documented in this encounter Visit Diagnoses Not on filedocumented in this encounter
--- OUTSIDE RECORDS SUMMARY | 2022-04-25 16:09 | XMS_ITS | Encounter Summary ---
:1975 Author Organization [facility] Address [address] [place] [address] Care Team Providers Name Role Phone Unavailable Primary Care Provider Unavailable Encounter Details Date Type Department Care Team Description 08/30/2011 Hospital Encounter HX [facility] ANTICOAG Provider, His torical Social History Tobacco Use Types Packs/Day Years Used Date Smoking Tobacco: Never Assessed Sex Assigned at Date Recorded Not on file documented as of this encounter Plan of Treatment Not on filedocumented as of this encounter Procedures Procedure Name Priority Date/Time Associated Comments Diagnosis PROTHROMBIN TIME Routine 08/30/2011 9:54 AM Resul ts for this (PT), P DIRECTOR E LEARNING procedure are i n the results section. documented in this encounter Results PT (Prothrombin Time) with INR (08/30/2011 9:54 AM DIRECTOR E LEARNING) P athologist Signature INR 2.50 [facility] Specimen (Source) Anatomical Collection Method Collection Time Re ceived Time Location / / Volume Laterality 08/30/2011 9:54 AM DIRECTOR E LEARNING Historical Provider LAB BLOOD ADD-ON Performing Organization Address City/State/ZIP Code Phon e Number [facility] documented in this encounter Visit Diagnoses Not on filedocumented in this encounter
--- OUTSIDE RECORDS SUMMARY | 2022-04-25 16:09 | XMS_ITS | Encounter Summary ---
:1975 Author Organization [facility] Address [address] [place] [address] Care Team Providers Name Role Phone Unavailable Primary Care Provider Unavailable Encounter Details Date Type Department Care Team Description 01/18/2011 Hospital Encounter HX [facility] Butch Barajas Ri[address]chaelN[address] [place], [place] [phone] Social History Tobacco Use Types Packs/Day Years Used Date Smoking Tobacco: Never Assessed Sex Assigned at Date Recorded Not on file documented as of this encounter Miscellaneous Notes Telephone Encounter - Ximena Jim RMichaelNMichael - 01/18/2011 12:00 AM CDT [id number] Situation/What is the patients concern/need: Irregular period Clinical Background/Recent Intervention: [facility] is calling stating she is a couple days late on her period. She states she can't get and isn't on any type of control. LMP was 11/24/10. Patient does have dx of irregular menses. Recommendation/Patient Request: Advised patient to wait one more week and if no period to call back. Best number(s) to reach patient: ' Source: [facility] Document Id: [id number] documented in this encounter Plan of Treatment Not on filedocumented as of this encounter Visit Diagnoses Not on filedocumented in this encounter
--- OUTSIDE RECORDS SUMMARY | 2022-04-25 16:09 | XMS_ITS | Encounter Summary ---
:1975 Author Organization [facility] Address [address] [place] [address] Care Team Providers Name Role Phone Unavailable Primary Care Provider Unavailable Encounter Details Date Type Department Care Team Description 11/04/2011 Hospital [facility] Janie Hunt ra, R.N. Social History Tobacco Use Types Packs/Day Years Used Date Smoking Tobacco: Never Assessed Sex Assigned at Date Recorded Not on file documented as of this encounter Miscellaneous Notes Telephone Encounter - Jazz Hunt RViktor - 11/04/2011 12:00 AM CDT [id number] Received [facility]'s form that was filled out by family / staff. Brown clerks discussed w/ PCP's triage nurse. Per PCP, patient does need to be seen by PCP to have this signed. Pt was seen for annual LATIN TEACHER exam in Jun 2011 but PCP requesting appt for final signing. Source[facility] Document Id: [id number] Electronically signed by [facility], [facility] Classer [id number] at 11/26/2016 6:06 PM CDT Telephone Encounter - Jazz Hunt R.N. - 11/04/2011 12:00 AM CDT [id number] Mom r/c and will arrange to have Zuleima brought out to the clinic for an appt w/ PCP for signing of form. Gracie has form in her yellow file until appt time. Source: [facility] Document Id: [id number] documented in this encounter Plan of Treatment Not on filedocumented as of this encounter Visit Diagnoses Not on filedocumented in this encounter
--- OUTSIDE RECORDS SUMMARY | 2022-04-25 16:09 | XMS_ITS | Encounter Summary ---
:1975 Author Organization [facility] Address [address] [place] [address] Care Team Providers Name Role Phone Unavailable Primary Care Provider Unavailable Encounter Details Date Type Department Care Team Description 01/18/2011 Hospital Encounter HX [facility] ANTICOAG Provider, His torical Social History Tobacco Use Types Packs/Day Years Used Date Smoking Tobacco: Never Assessed Sex Assigned at Date Recorded Not on file documented as of this encounter Plan of Treatment Not on filedocumented as of this encounter Visit Diagnoses Not on filedocumented in this encounter
--- OUTSIDE RECORDS SUMMARY | 2022-04-25 16:09 | XMS_ITS | Encounter Summary ---
:1975 Author Organization [facility] Address [address] [place] [address] Care Team Providers Name Role Phone Unavailable Primary Care Provider Unavailable Encounter Details Date Type Department Care Team Description 09/27/2011 Hospital Encounter HX [facility] ANTICOAG Provider, His torical Social History Tobacco Use Types Packs/Day Years Used Date Smoking Tobacco: Never Assessed Sex Assigned at Date Recorded Not on file documented as of this encounter Plan of Treatment Not on filedocumented as of this encounter Procedures Procedure Name Priority Date/Time Associated Comments Diagnosis PROTHROMBIN TIME Routine 09/27/2011 9:37 AM Resul ts for this (PT), P CDT procedure are i n the results section. documented in this encounter Results PT (Prothrombin Time) with INR (09/27/2011 9:37 AM CDT) P athologist Signature INR 2.27 [facility] Specimen (Source) Anatomical Collection Method Collection Time Re ceived Time Location / / Volume Laterality 09/27/2011 9:37 AM CDT Historical Provider LAB BLOOD ADD-ON Performing Organization Address City/State/ZIP Code Phon e Number [facility] documented in this encounter Visit Diagnoses Not on filedocumented in this encounter
--- OUTSIDE RECORDS SUMMARY | 2022-04-25 16:09 | XMS_ITS | Encounter Summary ---
:1975 Author Organization [facility] Address [address] [place] [address] Care Team Providers Name Role Phone Unavailable Primary Care Provider Unavailable Encounter Details Date Type Department Care Team Description 08/02/2011 Hospital Encounter HX [facility] ANTICO Provider, His torical Social History Tobacco Use Types Packs/Day Years Used Date Smoking Tobacco: Never Assessed Sex Assigned at Date Recorded Not on file documented as of this encounter Progress Notes Khadar Medina, RViktor - 08/02/2011 10:35 AM CST [id number] Addended by: KHADAR MEDINA on: 08/02/2011 Modules accepted: Level of Service [facility] Document Id: [id number] documented in this encounter Miscellaneous Notes Miscellaneous - Conversion, Historical Provider Ser - 08/02/2011 10:35 AM INVESTIGATION CLERK [id number] [facility] [address] [facility] [place] [address] August 03, 2011 Hue Medina [address] [facility] [id number] [facility] [phone] Dear Michael Carol: I am writing to inform you the results of the laboratory tests you had done during your recent visitto the clinic. The tests that are checked were performed and are satisfactory, unless otherwise noted. The results of your recent lab(s) were: Results for orders placed in visit on 08/02/11 LIPID REFLEX TO DIRECT LDL PANEL Component Value Range Cholesterol 207 (*) 0 - 200 (mg/dL) Triglycerides 139 0 - 150 (mg/dL) HDL Cholesterol 42 (*) 50 - 110 (mg/dL) LDL Cholesterol Calculated 137 (*) 0 - 129 (mg/dL) VLDL-Cholesterol 28 0 - 30 (mg/dL) Cholesterol/HDL Ratio 5.0 0.0 - 5.0 GLUCOSE Component Value Range Glucose 83 60 - 99 (mg/dL) TSH WITH FREE T4 REFLEX Component Value Range TSH 7.04 (*) 0.4 - 5.0 (mU/L) INR Component Value Range INR 2.31 (*) 0.86 - 1.14 T4 FREE Component Value Range T4 Free 0.90 0.70 - 1.85 (ng/dL) Although the TSH is high, the T4 level is within normal limits, so we will just recheck this level next year. Otherwise, everything else looks good! No diabetes! It was a pleasure to see you in the clinic. If you have any further questions or problems, please contact our office at [phone]. Sincerely, Sera Velarde PA-C [facility] Source: [facility] Document Id: [id number] documented in this encounter Plan of Treatment Not on filedocumented as of this encounter Procedures Procedure Name Priority Date/Time Associated Comments Diagnosis T4 (THYROXINE), FREE, Routine 08/02/2011 11:15 Re sults for this S AM INVESTIGATION CLERK procedure are i n the results section. THYROID-STIMULATING Routine 08/02/2011 10:49 Resu lts for this HORMONE-SENSITIVE AM INVESTIGATION CLERK procedure are in (S-TSH) the results section. HX CHOL/HDL RATIO Routine 08/02/2011 10:07 Result s for this AM INVESTIGATION CLERK procedure are i n the results section. HX VLDL CHOL Routine 08/02/2011 10:07 Results for this AM INVESTIGATION CLERK procedure are i n the results section. LIPID PANEL, S Routine 08/02/2011 10:07 Results f or this AM INVESTIGATION CLERK procedure are i n the results section. TRIGLYCERIDES, S Routine 08/02/2011 10:07 Results for this AM INVESTIGATION CLERK procedure are i n the results section. CHOLESTEROL, HDL, S Routine 08/02/2011 10:07 Resu lts for this AM INVESTIGATION CLERK procedure are i n the results section. GLUCOSE, RANDOM, S/P Routine 08/02/2011 10:07 Res ults for this AM INVESTIGATION CLERK procedure are i n the results section. CHOLESTEROL, TOTAL, S Routine 08/02/2011 10:07 Re sults for this AM INVESTIGATION CLERK procedure are i n the results section. PROTHROMBIN TIME Routine 08/02/2011 10:02 Results for this (PT), P AM INVESTIGATION CLERK procedure are i n the results section. documented in this encounter Results T4 (Thyroxine), Free (08/02/2011 11:15 AM INVESTIGATION CLERK) P athologist Signature T4 (Thyroxine), 0.90 NGDL [facility] Free, [facility] Specimen (Source) Anatomical Collection Method Collection Time Re ceived Time Location / / Volume Laterality 08/02/2011 11:15 AM INVESTIGATION CLERK Historical Provider LAB BLOOD ADD-ON Performing Organization Address City/State/ZIP Code Phon e Number [facility] S-TSH (Thyroid-Stimulating Hormone - Sensitive) (08/02/2011 10:49 AM INVESTIGATION CLERK) P athologist Signature TSH 7.04 MUNITL [facility] (Thyrotropin) [facility] Specimen (Source) Anatomical Collection Method Collection Time Re ceived Time Location / / Volume Laterality 08/02/2011 10:49 AM INVESTIGATION CLERK Historical Provider LAB BLOOD ADD-ON Performing Organization Address City/State/ZIP Code Phon e Number [facility] Glucose, Random (08/02/2011 10:07 AM INVESTIGATION CLERK) P athologist Signature Glucose 83 MGDL [facility] Specimen (Source) Anatomical Collection Method Collection Time Re ceived Time Location / / Volume Laterality 08/02/2011 10:07 AM INVESTIGATION CLERK Narrative [facility] - 08/25/19 14 2:02 AM INVESTIGATION CLERK Fasting specimen Historical Provider LAB BLOOD TROPONIN Performing Organization Address City/State/ZIP Code Phon e Number [facility] HX CHOL/HDL RATIO (08/02/2011 10:07 AM INVESTIGATION CLERK) P athologist Signature Total 5.0 [facility] Cholesterol/HDL [facility] LAB Specimen (Source) Anatomical Collection Method Collection Time Re ceived Time Location / / Volume Laterality 08/02/2011 10:07 AM INVESTIGATION CLERK Historical Provider LAB HISTORICAL ORDERS Performing Organization Address City/State/ZIP Code Phon e Number [facility] HX VLDL CHOL (08/02/2011 10:07 AM INVESTIGATION CLERK) P athologist Signature VLDL cholesterol 28 MGDL [facility] Specimen (Source) Anatomical Collection Method Collection Time Re ceived Time Location / / Volume Laterality 08/02/2011 10:07 AM INVESTIGATION CLERK Historical Provider LAB HISTORICAL ORDERS Performing Organization Address City/State/ZIP Code Phon e Number [facility] Lipid Panel (08/02/2011 10:07 AM INVESTIGATION CLERK) P athologist Signature Calculated LDL 137 MGDL [facility] Specimen (Source) Anatomical Collection Method Collection Time Re ceived Time Location / / Volume Laterality 08/02/2011 10:07 AM INVESTIGATION CLERK Narrative [facility] - 08/25/19 14 2:01 AM INVESTIGATION CLERK LDL Cholesterol is the primary guide to therapy: LDL-cholesterol goal in high risk patients is <100 mg/dL and in very high risk patients is <70 mg/dL. Historical Provider LAB BLOOD ADD-ON Performing Organization Address City/State/ZIP Code Phon e Number [facility] Cholesterol, High-Density Lipoprotein (HDL) (08/02/2011 10:07 AM INVESTIGATION CLERK) P athologist Signature HX HDL 42 MGDL [facility] Specimen (Source) Anatomical Collection Method Collection Time Re ceived Time Location / / Volume Laterality 08/02/2011 10:07 AM INVESTIGATION CLERK Historical Provider LAB BLOOD ADD-ON Performing Organization Address City/State/ZIP Code Phon e Number [facility] Triglycerides (08/02/2011 10:07 AM INVESTIGATION CLERK) P athologist Signature Triglycerides 139 MGDL [facility] Specimen (Source) Anatomical Collection Method Collection Time Re ceived Time Location / / Volume Laterality 08/02/2011 10:07 AM INVESTIGATION CLERK Narrative [facility] - 08/25/19 14 2:01 AM INVESTIGATION CLERK Fasting specimen Historical Provider LAB BLOOD ADD-ON Performing Organization Address City/State/ZIP Code Phon e Number [facility] Cholesterol, Total (08/02/2011 10:07 AM INVESTIGATION CLERK) P athologist Signature Cholestanol 207 MGDL [facility] Specimen (Source) Anatomical Collection Method Collection Time Re ceived Time Location / / Volume Laterality 08/02/2011 10:07 AM INVESTIGATION CLERK Narrative [facility] - 08/25/19 14 2:01 AM INVESTIGATION CLERK LDL Cholesterol is the primary guide to therapy. The NCEP recommends further evaluation o f: patients with cholesterol greater than 200 mg/dL if additional risk factor s are present, cholesterol greater than 240 mg/dL, triglycerides greater than 15 0 mg/dL, or HDL less than 40 mg/dL. Historical Provider LAB BLOOD ADD-ON Performing Organization Address City/State/ZIP Code Phon e Number [facility] PT (Prothrombin Time) with INR (08/02/2011 10:02 AM INVESTIGATION CLERK) P athologist Signature INR 2.31 [facility] Specimen (Source) Anatomical Collection Method Collection Time Re ceived Time Location / / Volume Laterality 08/02/2011 10:02 AM INVESTIGATION CLERK Historical Provider LAB BLOOD ADD-ON Performing Organization Address City/State/ZIP Code Phon e Number [facility] documented in this encounter Visit Diagnoses Not on filedocumented in this encounter
--- OUTSIDE RECORDS SUMMARY | 2022-04-25 16:09 | XMS_ITS | Encounter Summary ---
:1975 Author Organization [facility] Address [address] [place] [address] Care Team Providers Name Role Phone Unavailable Primary Care Provider Unavailable Encounter Details Date Type Department Care Team Description 07/25/2011 Hospital Encounter HX [facility] OBGYN Provider, Histor ical Social History Tobacco Use Types Packs/Day Years Used Date Smoking Tobacco: Never Assessed Sex Assigned at Date Recorded Not on file documented as of this encounter Progress Notes Conversion, Historical Provider Ser - 07/25/2011 3:30 PM CST [id number] Hue is a 36 year old year old woman here today for her preventative health exam. No LMP recorded. Patient is not currently having periods (Reason: Irregular Periods). She states her menses are becoming more regular, occuring every 24 days. Otherwise cramps are tolerable with use of Midol. Pt was on OCP, but this was discontinued due to hypercoagulability, for which she is on Coumadin. INR is checked monthly at home visits with a goal INR of 2-3. In the last year, Tori has lost 12 lbs. Is takingdaily calcium and goes on power walks every night through the halls of [employer], where she lives alone. Is on schedule for paps q3 years, as the gynecologic exam is very uncomfortable for the patient. Last pap was in 2010, and was NIL. At that time, pelvic u/s was also done to assess irregular bleeding, and showed cystic lesion on left ovary, but was otherwise unremarkable. History: Obstetric History T0 TAB0 SAB0 E0 M0 L0 Past Medical History Diagnosis Date Down's syndrome Ostium secundum type atrial septal defect Mitral valve disorders cleft mitral valve Cellulitis and abscess of leg, except foot 01/15/00 L lower leg Deep phlebitis-leg NEC 06/08/07 Past Surgical History Procedure Date Rw general surg (abstracted) 01/15/00 I & D w debridement, L thigh and leg cellulitis/abscess Current Outpatient Rx Name Route Sig Dispense Refill WARFARIN SODIUM 5 MG PO TABS Oral Take by mouth. 5mg tues/thurs and sat, 2.5mg all other days of week 30 tablet 2 DOXYCYCLINE HYCLATE 20 MG PO CAPS Oral Take by mouth. 1 daily CALCIUM + D PO Oral 1 TABLET DAILY TRIAMCINOLONE ACETONIDE 0.1 % EX CREA Topical Apply topically. 45 g 1 PERIOSTAT 20 MG PO TABS Oral 1 TABLET EVERY 12 HOURS ON EMPTY STOMACH NEW MED Rx mouth wash - daily LOPERAMIDE HCL 2 MG PO TABS Oral 1 TABLET NEEDED Quinolones, Bees and Chloramphenicol History Social History Marital Status: Single Spouse Name: N/A Number of Children: 0 Years of Education: N/A Occupational History Not on file. Social History Main Topics Smoking status: Never Smoker Smokeless tobacco: Never Used Alcohol Use: Yes special occasion Drug Use: No Sexually Active: No Other Topics Concern Blood Transfusions No Caffeine Concern No Sleep Concern No Stress Concern No Weight Concern No Exercise Yes Seat Belt Yes Self-exams No Social History Narrative No narrative on file Family History Problem Relation Age of Onset Cancer Maternal Aunt breast Thyroid Maternal Aunt several maternal aunts Anesthesia No family hx of Blood Disease No family hx of Neurological No family hx of Cardiovascular Maternal Uncle anurism and a bulge on aorta at age 64 Review of Systems: Negative unless otherwise noted. Neuro: negative Eyes: negative Ent: small ear canals, often times has cerumen impaction Pulmonary: negative Cardiovascular: negative GI:negative : negative Breast: negative, except for psoriasis on left breast Psych: negative Other: none Exam: Well nourished, well developed female in NAD. Neuro: Intact Eyes: ISABEL ENT: Intact, bilateral cerumen impaction, unable to visualize TMs Neck: no thyromegaly, no lymph adenopathy Lungs: clear, equal to auscultation bilaterally, no wheezes,rales,rhonchi Heart: normal, regular rate and rhythm, no murmur, gallop or rub Breast: normal in size and symmetry, normal contour with no evidence of flattening or dimpling, skinnormal, nipples everted without rashes or discharge, palpation negative for masses or nodules, no axillary masses palpable Abdomen: Benign, Soft, flat, non-tender, No masses, organomegaly, No inguinal nodes and Bowel soundsnormoactive 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 Internal exam deferred this year. Extremities: mild pedal edema noted bilaterally, otherwise normal. Assessment and Plan: -Normal Preventative health exam- will check TSH, glucose and lipids with next INR visit at home. Discussed deferring pap and pelvic u/s until next year, unless new symptoms present. -Cerumen impaction: ear wash done today. -Hx of psoriasis: Pt was putting kenalog on face. Advised to stop and only use on extremities. Encouraged Eucerin cream instead. 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
--- OUTSIDE RECORDS SUMMARY | 2022-04-25 16:09 | XMS_ITS | Encounter Summary ---
:1975 Author Organization [facility] Address [address] [place] [address] Care Team Providers Name Role Phone Unavailable Primary Care Provider Unavailable Encounter Details Date Type Department Care Team Description 11/23/2010 Hospital Encounter HX [facility] ANTICOAG Provider, His torical Social History Tobacco Use Types Packs/Day Years Used Date Smoking Tobacco: Never Assessed Sex Assigned at Date Recorded Not on file documented as of this encounter Plan of Treatment Not on filedocumented as of this encounter Visit Diagnoses Not on filedocumented in this encounter
--- OUTSIDE RECORDS SUMMARY | 2022-04-25 16:09 | XMS_ITS | Encounter Summary ---
:1975 Author Organization [facility] Address [address] [place] [address] Care Team Providers Name Role Phone Unavailable Primary Care Provider Unavailable Encounter Details Date Type Department Care Team Description 10/25/2011 Hospital Encounter H[facility] ANTICOAG Provider, His torical Social History Tobacco Use Types Packs/Day Years Used Date Smoking Tobacco: Never Assessed Sex Assigned at Date Recorded Not on file documented as of this encounter Plan of Treatment Not on filedocumented as of this encounter Procedures Procedure Name Priority Date/Time Associated Comments Diagnosis PROTHROMBIN TIME Routine 10/25/2011 9:52 AM Resul ts for this (PT), P CDT procedure are i n the results section. documented in this encounter Results PT (Prothrombin Time) with INR (10/25/2011 9:52 AM CDT) P athologist Signature INR 3.30 [facility] Specimen (Source) Anatomical Collection Method Collection Time Re ceived Time Location / / Volume Laterality 10/25/2011 9:52 AM CDT Historical Provider LAB BLOOD ADD-ON Performing Organization Address City/State/ZIP Code Phon e Number [facility] documented in this encounter Visit Diagnoses Not on filedocumented in this encounter
--- OUTSIDE RECORDS SUMMARY | 2022-04-25 16:09 | XMS_ITS | Encounter Summary ---
:1975 Author Organization [facility] Address [address] [place] [address] Care Team Providers Name Role Phone Unavailable Primary Care Provider Unavailable Encounter Details Date Type Department Care Team Description 04/12/2011 Hospital Encounter HX [facility] ANTICOAG Provider, His torical Social History Tobacco Use Types Packs/Day Years Used Date Smoking Tobacco: Never Assessed Sex Assigned at Date Recorded Not on file documented as of this encounter Plan of Treatment Not on filedocumented as of this encounter Visit Diagnoses Not on filedocumented in this encounter
--- OUTSIDE RECORDS SUMMARY | 2022-04-25 16:09 | XMS_ITS | Encounter Summary ---
:1975 Author Organization [facility] Address [address] [place] [address] Care Team Providers Name Role Phone Unavailable Primary Care Provider Unavailable Encounter Details Date Type Department Care Team Description 05/10/2011 Hospital Encounter HX [facility] ANTICOAG Provider, His torical Social History Tobacco Use Types Packs/Day Years Used Date Smoking Tobacco: Never Assessed Sex Assigned at Date Recorded Not on file documented as of this encounter Plan of Treatment Not on filedocumented as of this encounter Visit Diagnoses Not on filedocumented in this encounter
--- OUTSIDE RECORDS SUMMARY | 2022-04-25 16:09 | XMS_ITS | Encounter Summary ---
:1975 Author Organization [facility] Address [address] [place] [address] Care Team Providers Name Role Phone Unavailable Primary Care Provider Unavailable Encounter Details Date Type Department Care Team Description 06/07/2011 Hospital Encounter [facility]X [facility] Provider, Historic al Social History Tobacco Use Types Packs/Day Years Used Date Smoking Tobacco: Never Assessed Sex Assigned at Date Recorded Not on file documented as of this encounter Plan of Treatment Not on filedocumented as of this encounter Visit Diagnoses Not on filedocumented in this encounter
--- OUTSIDE RECORDS SUMMARY | 2022-04-25 16:09 | XMS_ITS | Encounter Summary ---
:1975 Author Organization [facility] Address [address] [place] [address] Care Team Providers Name Role Phone Unavailable Primary Care Provider Unavailable Encounter Details Date Type Department Care Team Description 11/09/2010 Hospital Encounter [facility] ANTICOAG Provider, His torical Social History Tobacco Use Types Packs/Day Years Used Date Smoking Tobacco: Never Assessed Sex Assigned at Date Recorded Not on file documented as of this encounter Plan of Treatment Not on filedocumented as of this encounter Visit Diagnoses Not on filedocumented in this encounter
--- OUTSIDE RECORDS SUMMARY | 2022-04-25 16:09 | XMS_ITS | Encounter Summary ---
:1975 Author Organization [facility] Address [address] [place] [address] Care Team Providers Name Role Phone Unavailable Primary Care Provider Unavailable Encounter Details Date Type Department Care Team Description 04/22/2011 Hospital Encounter HX [facility] Javier Parks [email or web address]. [address] [place] [address] (Wo rk) Social History Tobacco Use Types Packs/Day Years Used Date Smoking Tobacco: Never Assessed Sex Assigned at Date Recorded Not on file documented as of this encounter Miscellaneous Notes Telephone Encounter - Conversion, Historical Provider Ser - 04/22/2011 12:00 AM CDT [id number] Received refill request from patient/pharmacy medication pended for review. [facility] Document Id: [id number] Telephone Encounter - Jazz Hunt R.N. - 04/22/2011 12:00 AM CDT [id number] Last visit: BP Readings from Last 1 Encounters: 09/24/10 92/54 Prescription approved per RN refill protocol Hypercholesterolemia Labs: - not on meds [facility] Document Id: [id number] documented in this encounter Plan of Treatment Not on filedocumented as of this encounter Visit Diagnoses Not on filedocumented in this encounter
--- OUTSIDE RECORDS SUMMARY | 2022-04-25 16:09 | XMS_ITS | Encounter Summary ---
:1975 Author Organization [facility] Address [address] [place] [address] Care Team Providers Name Role Phone Unavailable Primary Care Provider Unavailable Encounter Details Date Type Department Care Team Description 11/29/2010 Hospital Encounter HX [facility] OBGYN Provider, Histor ical Social History Tobacco Use Types Packs/Day Years Used Date Smoking Tobacco: Never Assessed Sex Assigned at Date Recorded Not on file documented as of this encounter Miscellaneous Notes Telephone Encounter - Conversion, Historical Provider Ser - 11/29/2010 12:00 AM CDT [id number] Patient called and stated she missed her period, she was supposed to get it last Monday and stillhas not had a period. Please contact patient back at [phone]. Thank you Source: [facility] Document Id: [id number] Telephone Encounter - Ximena Jim R.N. - 11/29/2010 12:00 AM CDT [id number] TELEPHONE TRIAGE ENCOUNTER FORM Date: 11/29/2010 PCP: Cotton MD Patient Name: Hue Medina Gender: female : 1975 Age: [age] year old Time: 8:07 AM Phone Numbers: [phone] (home) Pharmacy: [facility] [place] [facility] [address], [place] [facility] Presenting Problem: Missed period Subjective/objective: Hue is calling due she is stating that it has been 24 days and she hasn't gotten her period yet. She is not on any control or hormone therapy. States she is not , states can't get . No cramping. States period is irregular at times. Onset: slow Duration: 2 days Associated Sx: No fever noted. N/A or not addressed Problem list reviewed: YES Recent History: Has diagnosis of irregular menses. Recent Illness: Yes - What was it?: 09/24/10 for cough congestion Allergies verified: YES Precipitated by: Unknown origin Med list reviewed: YES Alleviated by: N/A Immunosuppressed:NO Conclusion / Primary Problem: No menses Protocol(s) Consulted: Per Nursing Judgement PLAN / INTERVENTION Disposition: Home Care advice per protocol Caller verbalizes understanding of disposition? YES Caller agrees to plan? Yes: EVALUATION / FOLLOW-UP Advised patient to call back if not having menses by Monday due to states not and has history and diagnosis of irregular menses. Source: [facility] RWMCHX[facility]ANS[facility]RT[facility]YS Document Id: [id number] documented in this encounter Plan of Treatment Not on filedocumented as of this encounter Visit Diagnoses Not on filedocumented in this encounter
--- OUTSIDE RECORDS SUMMARY | 2022-04-25 16:09 | XMS_ITS | Encounter Summary ---
:1975 Author Organization [facility] Address [address] [place] [address] Care Team Providers Name Role Phone Unavailable Primary Care Provider Unavailable Encounter Details Date Type Department Care Team Description 05/17/2011 Hospital Encounter [facility] Andrea Whipple M.D. [address] [place], [place] [address] (Wo rk) Social History Tobacco Use Types Packs/Day Years Used Date Smoking Tobacco: Never Assessed Sex Assigned at Date Recorded Not on file documented as of this encounter Plan of Treatment Not on filedocumented as of this encounter Visit Diagnoses Not on filedocumented in this encounter
--- OUTSIDE RECORDS SUMMARY | 2022-04-25 16:09 | XMS_ITS | Encounter Summary ---
:1975 Author Organization [facility] Address [address] [place] [address] Care Team Providers Name Role Phone Unavailable Primary Care Provider Unavailable Encounter Details Date Type Department Care Team Description 07/05/2011 Hospital Encounter [facility] ANTICOAG Provider, His torical Social History Tobacco Use Types Packs/Day Years Used Date Smoking Tobacco: Never Assessed Sex Assigned at Date Recorded Not on file documented as of this encounter Plan of Treatment Not on filedocumented as of this encounter Procedures Procedure Name Priority Date/Time Associated Comments Diagnosis PROTHROMBIN TIME Routine 07/05/2011 10:15 Results for this (PT), P AM HIDE TRIMMER procedure are i n the results section. documented in this encounter Results PT (Prothrombin Time) with INR (07/05/2011 10:15 AM HIDE TRIMMER) P athologist Signature INR 1.99 [facility] Specimen (Source) Anatomical Collection Method Collection Time Re ceived Time Location / / Volume Laterality 07/05/2011 10:15 AM HIDE TRIMMER Historical Provider LAB BLOOD ADD-ON Performing Organization Address City/State/ZIP Code Phon e Number [facility] documented in this encounter Visit Diagnoses Not on filedocumented in this encounter
--- OUTSIDE RECORDS SUMMARY | 2022-04-25 16:09 | XMS_ITS | Encounter Summary ---
:1975 Author Organization [facility] Address [address] [place] [address] Care Team Providers Name Role Phone Unavailable Primary Care Provider Unavailable Encounter Details Date Type Department Care Team Description 04/07/2011 Hospital Encounter HX [facility] PRA Marsha Garibay M.D. [address] [place], [place] [address] (Wo rk) Social History Tobacco Use Types Packs/Day Years Used Date Smoking Tobacco: Never Assessed Sex Assigned at Date Recorded Not on file documented as of this encounter Miscellaneous Notes Telephone Encounter - Conversion, Historical Provider Ser - 04/07/2011 12:00 AM CDT [id number] PCP KHOI: 07/05/2010 Last visit: BP Readings from Last 1 Encounters: 09/24/10 92/54 CAD/HTN and/or CHF labs: CR 1.24 06/08/2007 POTASSIUM 3.8 06/08/2007 CHOL 218 07/20/2010 TRIG 87 07/20/2010 HDL 50 07/20/2010 LDL 151 07/20/2010 TSH 3.52 09/21/2010 TSH 3.52 09/21/2010 Please close encounter when finished; thank you. Source: [facility] Document Id: [id number] Telephone Encounter - Fina Peres R.N. - 04/07/2011 12:00 AM CDT [id number] Last visit was 07/19/10 Prescription approved per RN refill protocol. BP Readings from Last 1 Encounters: 09/24/10 92/54 INR 2.76 03/15/2011 Source: [facility] RWMCHXTRANSXRTFSYS Document Id: [id number] Electronically signed by Conversion, [facility] Boots And Shoes Supervisor [id number] at 11/26/2016 11:21 PM CDT documented in this encounter Plan of Treatment Not on filedocumented as of this encounter Visit Diagnoses Not on filedocumented in this encounter
--- OUTSIDE RECORDS SUMMARY | 2022-04-25 16:09 | XMS_ITS | Encounter Summary ---
:1975 Author Organization [facility] Address [address] [place] [address] Care Team Providers Name Role Phone Unavailable Primary Care Provider Unavailable Encounter Details Date Type Department Care Team Description 12/14/2010 Hospital Encounter [facility] ANTICOAG Provider, His torical Social History Tobacco Use Types Packs/Day Years Used Date Smoking Tobacco: Never Assessed Sex Assigned at Date Recorded Not on file documented as of this encounter Plan of Treatment Not on filedocumented as of this encounter Visit Diagnoses Not on filedocumented in this encounter
--- OUTSIDE RECORDS SUMMARY | 2022-04-25 16:09 | XMS_ITS | Encounter Summary ---
:1975 Author Organization [facility] Address [address] [place] [address] Care Team Providers Name Role Phone Unavailable Primary Care Provider Unavailable Encounter Details Date Type Department Care Team Description 09/15/2011 Hospital Encounter [facility] Valentina Abdi R.N. [address] [place] [id number] Social History Tobacco Use Types Packs/Day Years Used Date Smoking Tobacco: Never Assessed Sex Assigned at Date Recorded Not on file documented as of this encounter Miscellaneous Notes Telephone Encounter - Candelaria Abdi, R.N. - 09/15/2011 12:00 AM CDT [id number] Situation/What is the patients concern/need: Pt calling into report that her period is 5 days late. Clinical Background/Recent Intervention: Pt has a Dx of irregular menses. Pt states that she can not get and is not on any control. Recommendation/Patient Request: Pt advised to wait one more week and call back if further questions or concerns arise. Source: [facility] Document Id: [id number] Electronically signed by Conversion, [facility] Farrowing Manager [id number] at 11/26/2016 12:22 PM CDT documented in this encounter Plan of Treatment Not on filedocumented as of this encounter Visit Diagnoses Not on filedocumented in this encounter
--- OUTSIDE RECORDS SUMMARY | 2022-04-25 16:10 | XMS_ITS | Encounter Summary ---
:1975 Author Organization [facility] Address [address] [place] [address] Care Team Providers Name Role Phone Unavailable Primary Care Provider Unavailable Encounter Details Date Type Department Care Team Description 10/08/2010 Hospital Encounter [facility] Andrea Whipple M.D. [address] [place], [place] [address] (Wo rk) Social History Tobacco Use Types Packs/Day Years Used Date Smoking Tobacco: Never Assessed Sex Assigned at Date Recorded Not on file documented as of this encounter Plan of Treatment Not on filedocumented as of this encounter Visit Diagnoses Not on filedocumented in this encounter
--- OUTSIDE RECORDS SUMMARY | 2022-04-25 16:10 | XMS_ITS | Encounter Summary ---
:1975 Author Organization [facility] Address [address] [place] [address] Care Team Providers Name Role Phone Unavailable Primary Care Provider Unavailable Encounter Details Date Type Department Care Team Description 09/28/2010 Hospital Encounter HX [facility] ANTICOAG Provider, His torical Social History Tobacco Use Types Packs/Day Years Used Date Smoking Tobacco: Never Assessed Sex Assigned at Date Recorded Not on file documented as of this encounter Plan of Treatment Not on filedocumented as of this encounter Visit Diagnoses Not on filedocumented in this encounter
--- OUTSIDE RECORDS SUMMARY | 2022-04-25 16:10 | XMS_ITS | Encounter Summary ---
:1975 Author Organization [facility] Address [address] [place] [address] Care Team Providers Name Role Phone Unavailable Primary Care Provider Unavailable Encounter Details Date Type Department Care Team Description 09/24/2010 Hospital [facility] Morteza Shaver M.D. [address] [place] [phone] (Wo rk) Social History Tobacco Use Types Packs/Day Years Used Date Smoking Tobacco: Never Assessed Sex Assigned at Date Recorded Not on file documented as of this encounter Progress Notes Morteza Shaver M.D. - 09/24/2010 2:45 PM CDT [id number] FOLLOW-UP: Hue presents today for follow-up of recent urgent care visit at [facility] on 09/21. She presented with bronchitis of moderate severity with some mild wheezing. She was evaluated with exam and negative chest X-ray. She was treated with Z-Pack and medrol and asked to follow up today. At this time she denies improvement of the original symptoms. She reports the following new symptoms: none. She still has a non-productive cough with wheezing. No significant shortness of breath. No fevers, chills, sweats. No sinusitis symptoms. 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 albuterol (PROVENTIL HFA: VENTOLIN HFA) 108 (90 BASE) MCG/ACT inhaler Inhale 2 puffs into the lungsevery 4 hours as needed for shortness of breath / dyspnea. methylPREDNISolone (MEDROL DOSEPACK) 4 MG tablet Take by mouth See Admin Instructions. follow package directions azithromycin (ZITHROMAX) 250 MG tablet Two tablets first day, then one tablet daily for four days Doxycycline Hyclate 20 MG CAPS Take by mouth. 1 daily triamcinolone (KENALOG) 0.1 % cream Apply topically. warfarin (COUMADIN) 5 MG tablet Take by mouth. 5mgThurs, 2.5mg all other days or as directed per INR clinic PERIOSTAT 20 MG OR TABS 1 TABLET EVERY 12 HOURS ON EMPTY STOMACH NEW MED Rx mouth wash - daily LOPERAMIDE HCL 2 MG OR TABS 1 TABLET NEEDED CALCIUM + D OR 1 TABLET DAILY Allergies: Allergies Allergen Reactions Quinolones ciloxan eye tts Bees Chloramphenicol SOCIAL HISTORY: History Substance Use Topics Smoking status: Never Smoker Smokeless tobacco: Never Used Alcohol Use: Yes special occasion FAMILY HISTORY: Family History Problem Relation Age of Onset Cancer Maternal Aunt breast Thyroid Maternal Aunt several maternal aunts Anesthesia No family hx of Blood Disease No family hx of Neurological No family hx of Cardiovascular Maternal Uncle anurism and a bulge on aorta at age 64 Review of Systems: Constitutional: negative Resp: as above CV: negative Neuro: negative Objective: BP 92/54 Pulse 76 Temp(Src) 97.2 ??F (36.2 ??C) (Temporal) Ht 1.454 m (4' 9.25) Wt 70.761 kg (156 lb) BMI 33.46 kg/m2 General: Patient is well nourished, alert and oriented in no acute distress. Normal mood and affect.Appropiate judgement and insight. Eyes: normal lids and conjunctiva. Lungs: normal respiratory effort, scant expiratory wheezing Cardiac: normal S1 and S2 without any murmur, gallops or rubs. No edema or cyanosis. Assessment: BRONCHITIS WITH BRONCHOSPASM Plan: - IM rocephin - albuterol MDI every 4 hours as needed - Robitussin-AC prn - continue full course of Z-Pack - continue full course of Medrol - She understands to follow up immediately to the ER if there is significant worsening of her symptoms or any new concerning symptoms. Source: [facility]XTRANSXRT[facility] Document Id: [id number] documented in this encounter Plan of Treatment Not on filedocumented as of this encounter Visit Diagnoses Not on filedocumented in this encounter
--- OUTSIDE RECORDS SUMMARY | 2022-04-25 16:10 | XMS_ITS | Encounter Summary ---
:1975 Author Organization [facility] Address [address] [place] [address] Care Team Providers Name Role Phone Unavailable Primary Care Provider Unavailable Encounter Details Date Type Department Care Team Description 07/06/2010 Hospital Encounter [facility] ANTICOAG Provider, His torical Social History Tobacco Use Types Packs/Day Years Used Date Smoking Tobacco: Never Assessed Sex Assigned at Date Recorded Not on file documented as of this encounter Plan of Treatment Not on filedocumented as of this encounter Visit Diagnoses Not on filedocumented in this encounter
--- OUTSIDE RECORDS SUMMARY | 2022-04-25 16:10 | XMS_ITS | Encounter Summary ---
:1975 Author Organization [facility] Address [address] [place] [address] Care Team Providers Name Role Phone Unavailable Primary Care Provider Unavailable Encounter Details Date Type Department Care Team Description 07/19/2010 Hospital Encounter [facility] Javier Parks P.A.-C. [address] [place] [address] (Wo rk) Social History Tobacco Use Types Packs/Day Years Used Date Smoking Tobacco: Never Assessed Sex Assigned at Date Recorded Not on file documented as of this encounter Progress Notes Cristiane Echavarria P.A.-C. - 07/19/2010 3:30 PM CST [id number] Hue is a 35 year old Down Syndrome woman here today accompanied by mother for her preventative health exam. No LMP recorded. Patient is not currently having periods (Reason: Irregular Periods). Shestates her menses occur every 2 weeks to 28 days x 6 months. Before this, menses were monthly, every28 days. She is not sexually active. Has used OCPs in the past because mother was unsure of pt's sexual history as pt lives alone. OCP was discontinued after DVT. Pt is on lifelong coumadin due to Protein S deficiency and hx DVT per mother. Sees Dr. Garibay as well for primary care. Health maintenance: Exercise: no regular program Vitamins: yes Calcium intake: diet History: Past Medical History Diagnosis Date Down's syndrome Ostium secundum type atrial septal defect Mitral valve disorders cleft mitral valve Cellulitis and abscess of leg, except foot 01/15/00 L lower leg Deep phlebitis-leg NEC 06/08/07 Past Surgical History Procedure Date Rw general surg (abstracted) 01/15/00 I & D w debridement, L thigh and leg cellulitis/abscess Current Outpatient Rx Name Route Sig Dispense Refill DOXYCYCLINE HYCLATE 20 MG PO CAPS Oral Take by mouth. 1 daily TRIAMCINOLONE ACETONIDE 0.1 % EX CREA Topical Apply topically. 45 g 3 WARFARIN SODIUM 5 MG PO TABS Oral Take by mouth. 5mgThurs, 2.5mg all other days or as directed per INR clinic 30 tablet 5 CALCIUM + D PO Oral 1 TABLET DAILY PERIOSTAT 20 MG PO TABS Oral 1 [...] of Systems: Negative unless otherwise noted. Neuro: negataive Eyes: neg Ent: saw dentist today Pulmonary: negative Cardiovascular: heart murmur GI:negative, no recent constipation : see HPI Breast: negative Psych: negative Exam: BP 118/74 Ht 1.467 m (4' 9.75) Wt 75.297 kg (166 lb) Obese Down Syndrome female in NAD. Neuro: Intact Eyes: ISABEL ENT: Poor dentition Neck: no thyromegaly, no lymph adenopathy Lungs: clear, equal to auscultation bilaterally, no wheezes,rales,rhonchi Heart: Murmur noted Breast: normal in size and symmetry, normal contour with no evidence of flattening or dimpling, skinnormal, nipples everted without rashes or discharge, palpation negative for masses or nodules, no axillary masses palpable Abdomen: Benign, Soft,non-tender, No masses or organomegaly although limited due to obesity, Bowel sounds hyperactive Gas Meter Repairer: external genitalia normal, small introitus, vaginal mucosa erythematous, unable to visualize cervix due to pt's discomfort with exam, obtained Pap by sweeping posterior vagina with brush. Bimanualexam limited due to pt's discomfort with exam and obesity. Nonpalpable uterus and adnexa Extremities: extremities, peripheral pulses and reflexes normal Assessment and Plan: - Normal Preventative health exam. Normal health maintanence includes Pap smear, lipid panel, and glucose for screening purposes. - Irregular menses. Will get TSH, FSH (early menopause?), and pelvic sono for further evaluation. Will not be able to use hormone options to control menses due to hx DVT and Protein S deficiency - Ceruminosis. Ear wash today - Dermatitis. Refilled Kenalog to be used on PRN basis for acute flares. - Per mother's request, will send lab results to mother at: Fabiola Medina [id number] [facility] [address]. Source: [facility] Document Id: [id number] Electronically signed by Conversion, [facility] Customer Sales Distributor [id number] at 11/27/2016 5:51 AM CDT documented in this encounter Miscellaneous Notes Miscellaneous - Conversion, Historical Provider Ser - 07/19/2010 3:30 PM [employer] BAKER [id number] Hue Medina [address] [facility] [id number] [facility] July 26, 2010 Dear Hue Medina, I am happy to inform you that your recent cervical cancer screening test (PAP smear) was normal. Preventative screening such as this helps insure your health for years to come. Congratulations for taking care of yourself! If you have any further questions, please contact my office at [phone]. Sincerely, Shwetha Manuel. OBSTETRICS/GYNECOLOGY [facility] Source: [facility] Document Id: [id number] documented in this encounter Plan of Treatment Not on filedocumented as of this encounter Visit Diagnoses Not on filedocumented in this encounter
--- OUTSIDE RECORDS SUMMARY | 2022-04-25 16:10 | XMS_ITS | Encounter Summary ---
:1975 Author Organization [facility] Address [address] [place] [address] Care Team Providers Name Role Phone Unavailable Primary Care Provider Unavailable Encounter Details Date Type Department Care Team Description 10/12/2010 Hospital Encounter [facility] ANTICOAG Provider, His torical Social History Tobacco Use Types Packs/Day Years Used Date Smoking Tobacco: Never Assessed Sex Assigned at Date Recorded Not on file documented as of this encounter Plan of Treatment Not on filedocumented as of this encounter Visit Diagnoses Not on filedocumented in this encounter
--- OUTSIDE RECORDS SUMMARY | 2022-04-25 16:10 | XMS_ITS | Encounter Summary ---
:1975 Author Organization [facility] Address [address] [place] [address] Care Team Providers Name Role Phone Unavailable Primary Care Provider Unavailable Encounter Details Date Type Department Care Team Description 08/09/2010 Hospital Encounter HX NO MAPPING Provider, Historical Social History Tobacco Use Types Packs/Day Years Used Date Smoking Tobacco: Never Assessed Sex Assigned at Date Recorded Not on file documented as of this encounter Plan of Treatment Not on filedocumented as of this encounter Visit Diagnoses Not on filedocumented in this encounter
--- OUTSIDE RECORDS SUMMARY | 2022-04-25 16:10 | XMS_ITS | Encounter Summary ---
:1975 Author Organization [facility] Address [address] [place] [address] Care Team Providers Name Role Phone Unavailable Primary Care Provider Unavailable Encounter Details Date Type Department Care Team Description 09/22/2010 Hospital Encounter [facility] Antonia Jenkins RViktor Social History Tobacco Use Types Packs/Day Years Used Date Smoking Tobacco: Never Assessed Sex Assigned at Date Recorded Not on file documented as of this encounter Plan of Treatment Not on filedocumented as of this encounter Visit Diagnoses Not on filedocumented in this encounter
--- OUTSIDE RECORDS SUMMARY | 2022-04-25 16:10 | XMS_ITS | Encounter Summary ---
:1975 Author Organization [facility] Address [address] [place] [address] Care Team Providers Name Role Phone Unavailable Primary Care Provider Unavailable Encounter Details Date Type Department Care Team Description 07/07/2010 Hospital Encounter HX [facility] Marsha Garibay M.D. [address] [place], [place] [address] (Wo rk) Social History Tobacco Use Types Packs/Day Years Used Date Smoking Tobacco: Never Assessed Sex Assigned at Date Recorded Not on file documented as of this encounter Miscellaneous Notes Telephone Encounter - Conversion, Historical Provider Ser - 07/07/2010 12:00 AM CST [id number] Faxed request from pharmacy,will be directly faxed back if approved. PCP KHOI 07/05/10 Close encounter when completed. Thank you. Source: [facility] Document Id: [id number] Telephone Encounter - Antonia Mcclellan R.N. - 07/07/2010 12:00 AM CST [id number] Prescription approved per RN refill protocol. Last visit:07/05/10 BP Readings from Last 1 Encounters: 07/05/2010 90/60 No exclusionary diagnoses. INR 2.08 07/06/2010 Source: [facility] Document Id: [id number] documented in this encounter Plan of Treatment Not on filedocumented as of this encounter Visit Diagnoses Not on filedocumented in this encounter
--- OUTSIDE RECORDS SUMMARY | 2022-04-25 16:10 | XMS_ITS | Encounter Summary ---
:1975 Author Organization [facility] Address [address] [place] [address] Care Team Providers Name Role Phone Unavailable Primary Care Provider Unavailable Encounter Details Date Type Department Care Team Description 07/26/2010 Hospital Encounter HX [facility] Nanci Reid sa, R.N. [address] [place], [place] [phone] Social History Tobacco Use Types Packs/Day Years Used Date Smoking Tobacco: Never Assessed Sex Assigned at Date Recorded Not on file documented as of this encounter Miscellaneous Notes Telephone Encounter - Annie Velazquez R.N. - 07/26/2010 12:00 AM CST [id number] Situation/What is the patients concern/need: Patient inquiry. Clinical Background/Recent Intervention: Zuleima is calling today b/c her period is 5 days late. She said that she gets it every 24 days. She isnot sexually active and is not on control at this time. She is very concerned that she has nothad her period yet. Recommendation/Patient Request: Advised to wait and see if she gets her period and if no period in the next 3 months to call. May dopregnancy test to ensure non . Patient agreed with plan. Parent will try home care measures and will reassess. They will call or bring the child back in if symptoms worsen or do not improve. Parent is aware of the UC and the ER if necessary. Best number(s) to reach patient: na [facility]: [facility] Document Id: [id number] documented in this encounter Plan of Treatment Not on filedocumented as of this encounter Visit Diagnoses Not on filedocumented in this encounter
--- OUTSIDE RECORDS SUMMARY | 2022-04-25 16:10 | XMS_ITS | Encounter Summary ---
:1975 Author Organization [facility] Address [address] [place] [address] Care Team Providers Name Role Phone Unavailable Primary Care Provider Unavailable Encounter Details Date Type Department Care Team Description 07/27/2010 Hospital Encounter HX NO MAPPING Payal Orozco M.D. Social History Tobacco Use Types Packs/Day Years Used Date Smoking Tobacco: Never Assessed Sex Assigned at Date Recorded Not on file documented as of this encounter Plan of Treatment Not on filedocumented as of this encounter Visit Diagnoses Not on filedocumented in this encounter
--- OUTSIDE RECORDS SUMMARY | 2022-04-25 16:10 | XMS_ITS | Encounter Summary ---
:1975 Author Organization [facility] Address [address] [place] [address] Care Team Providers Name Role Phone Unavailable Primary Care Provider Unavailable Encounter Details Date Type Department Care Team Description 07/13/2010 Hospital Encounter [facility] ANTICOAG Provider, His torical Social History Tobacco Use Types Packs/Day Years Used Date Smoking Tobacco: Never Assessed Sex Assigned at Date Recorded Not on file documented as of this encounter Plan of Treatment Not on filedocumented as of this encounter Visit Diagnoses Not on filedocumented in this encounter
--- OUTSIDE RECORDS SUMMARY | 2022-04-25 16:10 | XMS_ITS | Encounter Summary ---
:1975 Author Organization [facility] Address [address] [place] [address] Care Team Providers Name Role Phone Unavailable Primary Care Provider Unavailable Encounter Details Date Type Department Care Team Description 09/27/2010 Hospital Encounter [facility] ANTICOAG Provider, His torical Social History Tobacco Use Types Packs/Day Years Used Date Smoking Tobacco: Never Assessed Sex Assigned at Date Recorded Not on file documented as of this encounter Plan of Treatment Not on filedocumented as of this encounter Visit Diagnoses Not on filedocumented in this encounter
--- OUTSIDE RECORDS SUMMARY | 2022-04-25 16:10 | XMS_ITS | Encounter Summary ---
:1975 Author Organization [facility] Address [address] [place] [address] Care Team Providers Name Role Phone Unavailable Primary Care Provider Unavailable Encounter Details Date Type Department Care Team Description 07/27/2010 Hospital Encounter HX [facility] XRAY Provider, Histori bro Social History Tobacco Use Types Packs/Day Years Used Date Smoking Tobacco: Never Assessed Sex Assigned at Date Recorded Not on file documented as of this encounter Progress Notes Cristiane Winters P.A.-C. - 07/27/2010 3:30 PM CST [id number] Addended by: CRISTIANE WINTERS on: 07/28/2010 Modules accepted: Orders Source: [facility] Document Id: [id number] documented in this encounter Miscellaneous Notes Miscellaneous - Cristiane Winters P.A.-C. - 07/27/2010 3:30 PM CST [id number] [facility] [address] [place] [id number] July 28, 2010 Fabiola Medina [address] [place] [address] [facility] Dear Hue Baron's ultrasound showed a small cyst on the left ovary that is unchanged from the last ultrasound in 2007. We should continue to monitor this (although this cyst would not cause Hue's frequent periods); we should recheck this ultrasound in 1 year. Upon further review of Hue's thyroid test and after discussing it with Dr. Mejia, let's recheckher thyroid in 6-8 weeks. The slightly abnormal TSH but normal T4 may be the start of a thyroid condition. We'll just recheck this for monitoring purposes. I'll order this lab for a future blood draw that Hue can have drawn with an INR. If the thyroid comes back normal, then possibly the frequent periods may be related to early hormone changes with increasing age. Thank you for allowing me to participate in your care. If you have any further questions or problems, please contact me at [phone]. Sincerely, [employer] 701 [facility] [address] Source: [facility] RWMCHXTRANSXRTFSYS Document Id: [id number] documented in this encounter Plan of Treatment Not on filedocumented as of this encounter Visit Diagnoses Not on filedocumented in this encounter
--- OUTSIDE RECORDS SUMMARY | 2022-04-25 16:10 | XMS_ITS | Encounter Summary ---
:1975 Author Organization [facility] Address [address] [place] [address] Care Team Providers Name Role Phone Unavailable Primary Care Provider Unavailable Encounter Details Date Type Department Care Team Description 07/20/2010 Hospital Encounter [facility] Provider, Historic al Social History Tobacco Use Types Packs/Day Years Used Date Smoking Tobacco: Never Assessed Sex Assigned at Date Recorded Not on file documented as of this encounter Plan of Treatment Not on filedocumented as of this encounter Visit Diagnoses Not on filedocumented in this encounter
--- OUTSIDE RECORDS SUMMARY | 2022-04-25 16:10 | XMS_ITS | Encounter Summary ---
:1975 Author Organization [facility] Address [address] [place] [address] Care Team Providers Name Role Phone Unavailable Primary Care Provider Unavailable Encounter Details Date Type Department Care Team Description 10/05/2010 Hospital Encounter HX [facility] ANTICOAG Provider, His torical Social History Tobacco Use Types Packs/Day Years Used Date Smoking Tobacco: Never Assessed Sex Assigned at Date Recorded Not on file documented as of this encounter Plan of Treatment Not on filedocumented as of this encounter Visit Diagnoses Not on filedocumented in this encounter
--- OUTSIDE RECORDS SUMMARY | 2022-04-25 16:10 | XMS_ITS | Encounter Summary ---
:1975 Author Organization [facility] Address [address] [place] [address] Care Team Providers Name Role Phone Unavailable Primary Care Provider Unavailable Encounter Details Date Type Department Care Team Description 08/17/2010 Hospital Encounter [facility] ANTICOAG Provider, His torical Social History Tobacco Use Types Packs/Day Years Used Date Smoking Tobacco: Never Assessed Sex Assigned at Date Recorded Not on file documented as of this encounter Plan of Treatment Not on filedocumented as of this encounter Visit Diagnoses Not on filedocumented in this encounter
--- OUTSIDE RECORDS SUMMARY | 2022-04-25 16:10 | XMS_ITS | Encounter Summary ---
:1975 Author Organization [facility] Address [address] [place] [address] Care Team Providers Name Role Phone Unavailable Primary Care Provider Unavailable Encounter Details Date Type Department Care Team Description 08/31/2010 Hospital Encounter [facility] ANTICOAG Provider, His torical Social History Tobacco Use Types Packs/Day Years Used Date Smoking Tobacco: Never Assessed Sex Assigned at Date Recorded Not on file documented as of this encounter Plan of Treatment Not on filedocumented as of this encounter Visit Diagnoses Not on filedocumented in this encounter
--- OUTSIDE RECORDS SUMMARY | 2022-04-25 16:10 | XMS_ITS | Encounter Summary ---
:1975 Author Organization [facility] Address [address] [place] [address] Care Team Providers Name Role Phone Unavailable Primary Care Provider Unavailable Encounter Details Date Type Department Care Team Description 07/22/2010 Hospital Encounter [facility]X [facility] Javier Parks, P.A.-C. [address] [place] [address] (Wo rk) Social History Tobacco Use Types Packs/Day Years Used Date Smoking Tobacco: Never Assessed Sex Assigned at Date Recorded Not on file documented as of this encounter Miscellaneous Notes Miscellaneous - Cristiane Echavarria, P.A.-C. - 07/22/2010 12:00 AM CST [id number] [facility] [address] [facility] [address] July 22, 2010 Fabiola Medina [address] [place] [address] [facility] Dear Ms. Medina, Here are the test results for Hue Medina as you requested. Her FSH is in normal range which meansno early menopause. Her TSH is slightly elevated but her T4 - a more specific test to evaluate for thyroid disease - is normal so no further testing or treatment necessary regarding her thyroid. Her glucose is in the pre-diabetes range. A low fat diet and weight loss along with regular exercise will help bring this back to normal range. These lifestyle changes will also help lower her LDL or bad cholesterol, especially by following a low cholesterol, low fat diet. Results for orders placed in visit on 07/20/10 TSH WITH FREE T4 REFLEX Component Value Range TSH 7.92 (*) 0.4 - 5.0 (mU/L) FOLLICLE STIMULATING HORMONE Component Value Range FSH 10.9 (IU/L) GLUCOSE Component Value Range Glucose 104 (*) 60 - 99 (mg/dL) LIPID PANEL Component Value Range Cholesterol 218 (*) 0 - 200 (mg/dL) Triglycerides 87 0 - 150 (mg/dL) HDL Cholesterol 50 50 - 110 (mg/dL) LDL Cholesterol Calculated 151 (*) 0 - 129 (mg/dL) VLDL-Cholesterol 17 0 - 30 (mg/dL) Cholesterol/HDL Ratio 4.4 0.0 - 5.0 T4 FREE Component Value Range T4 Free 0.91 0.70 - 1.85 (ng/dL) I am still waiting to get the results back from the ultrasound and Pap smear. Thank you for allowing me to participate in your care. If you have any further questions or problems, please contact me at [phone]. Sincerely, Cristiane Echavarria PA-C [facility] [address] [facility] [address] Source: [facility] RWHXTRANSXRTFSYS Document Id: [id number] Electronically signed by Conversion, [facility] Knife Changer [id number] at 11/27/2016 5:51 AM CDT documented in this encounter Plan of Treatment Not on filedocumented as of this encounter Visit Diagnoses Not on filedocumented in this encounter
--- OUTSIDE RECORDS SUMMARY | 2022-04-25 16:10 | XMS_ITS | Encounter Summary ---
:1975 Author Organization [facility] Address [address] [place] [address] Care Team Providers Name Role Phone Unavailable Primary Care Provider Unavailable Encounter Details Date Type Department Care Team Description 09/21/2010 Hospital Encounter HX [facility] ANTICOAG Provider, His torical Social History Tobacco Use Types Packs/Day Years Used Date Smoking Tobacco: Never Assessed Sex Assigned at Date Recorded Not on file documented as of this encounter Plan of Treatment Not on filedocumented as of this encounter Visit Diagnoses Not on filedocumented in this encounter
--- OUTSIDE RECORDS SUMMARY | 2022-04-25 16:10 | XMS_ITS | Encounter Summary ---
:1975 Author Organization [facility] Address [address] [place] [address] Care Team Providers Name Role Phone Unavailable Primary Care Provider Unavailable Encounter Details Date Type Department Care Team Description 09/21/2010 Hospital Encounter HX [facility] Provider, Historic al Social History Tobacco Use Types Packs/Day Years Used Date Smoking Tobacco: Never Assessed Sex Assigned at Date Recorded Not on file documented as of this encounter Miscellaneous Notes Miscellaneous - Cristiane Echavarria P.A.-C. - 09/21/2010 12:45 PM CDT [id number] [facility] [employer] [facility] [address] [place] [address] September 28, 2010 Fabiola Medina [address] [place] [address] [facility] Dear Hue Baron's follow up thyroid test was normal. Results for orders placed in visit on 09/21/10 TSH WITH FREE T4 REFLEX Component Value Range TSH 3.52 0.4 - 5.0 (mU/L) Thank you for allowing me to participate in your care. If you have any further questions or problems, please contact me at [phone]. Sincerely, Lab Faith [facility] [facility] [address] [place] [address] Source: [facility] Document Id: [id number] documented in this encounter Plan of Treatment Not on filedocumented as of this encounter Visit Diagnoses Not on filedocumented in this encounter
--- OUTSIDE RECORDS SUMMARY | 2022-04-25 16:10 | XMS_ITS | Encounter Summary ---
:1975 Author Organization [facility] Address [address] [place] [address] Care Team Providers Name Role Phone Unavailable Primary Care Provider Unavailable Encounter Details Date Type Department Care Team Description 11/02/2010 Hospital Encounter [facility] ANTICOAG Provider, His torical Social History Tobacco Use Types Packs/Day Years Used Date Smoking Tobacco: Never Assessed Sex Assigned at Date Recorded Not on file documented as of this encounter Plan of Treatment Not on filedocumented as of this encounter Visit Diagnoses Not on filedocumented in this encounter
--- OUTSIDE RECORDS SUMMARY | 2022-04-25 16:10 | XMS_ITS | Encounter Summary ---
:1975 Author Organization [facility] Address [address] [place] [address] Care Team Providers Name Role Phone Unavailable Primary Care Provider Unavailable Encounter Details Date Type Department Care Team Description 09/07/2010 Hospital Encounter [facility] ANTICOAG Provider, His torical Social History Tobacco Use Types Packs/Day Years Used Date Smoking Tobacco: Never Assessed Sex Assigned at Date Recorded Not on file documented as of this encounter Plan of Treatment Not on filedocumented as of this encounter Visit Diagnoses Not on filedocumented in this encounter
--- OUTSIDE RECORDS SUMMARY | 2022-04-25 16:10 | XMS_ITS | Encounter Summary ---
:1975 Author Organization [facility] Address [address] [place] [address] Care Team Providers Name Role Phone Unavailable Primary Care Provider Unavailable Encounter Details Date Type Department Care Team Description 09/24/2010 Hospital Encounter HX [facility] ANTICOAG Provider, His torical Social History Tobacco Use Types Packs/Day Years Used Date Smoking Tobacco: Never Assessed Sex Assigned at Date Recorded Not on file documented as of this encounter Miscellaneous Notes Miscellaneous - Eliana Farooq RViktor - 09/24/2010 4:00 PM CDT [id number] Hue Bellamy Carol [address] [facility] [address] [facility] September 24, 2010 Dear Ms. Hue Medina: Your Lab today was: INR 4.38 09/24/2010 Your target range for your condition is: 2 - 3 You should:NO Coumadin until INR done on Monday09/27/2010 Your next lab appointment is scheduled for: 09/27/2010 Main [facility] labs must be drawn before 3 PM. [facility] labs must be drawn before 12 NOON. If you have questions regarding any of the above information or feel the information is not accurateplease call [phone] or [phone]. Thank you, Eliana Farooq RN [facility] staff: Eliana Farooq RN; Antonia Mcclellan RN; Fina Peres, ANGELINE; Ermelinda Casas RN; Mima Campo, ANGELINE; Love Medina RN Source: [facility] Document Id: [id number] Electronically signed by Lay, [facility]als[facility] [employer] Sales Associate [id number] at 11/27/2016 1:44 AM CDT documented in this encounter Plan of Treatment Not on filedocumented as of this encounter Visit Diagnoses Not on filedocumented in this encounter
--- OUTSIDE RECORDS SUMMARY | 2022-04-25 16:10 | XMS_ITS | Encounter Summary ---
:1975 Author Organization [facility] Address [address] [place] [address] Care Team Providers Name Role Phone Unavailable Primary Care Provider Unavailable Encounter Details Date Type Department Care Team Description 09/21/2010 Hospital Encounter HX NO MAPPING Provider, Historical Social History Tobacco Use Types Packs/Day Years Used Date Smoking Tobacco: Never Assessed Sex Assigned at Date Recorded Not on file documented as of this encounter Progress Notes Conversion, Historical Provider Ser - 09/21/2010 4:45 PM CDT [id number] SUBJECTIVE: Adult female with a history of Down syndrome who presents with her father complaining of two weeks of coughing that has been gradually worsening over the last four to five days preventing sleep. It sounds deep and harsh and her staffers have encouraged her to come in for evaluation. She is not getting any sleep. She is using cough drops. She has a history of pneumonia, but only as a young child and not since then. She is not a smoker. She has been around other people that have been ill. No fevers or chills. No earache or runny nose. No shortness of breath or chest pain. No GI symptoms. OBJECTIVE: VITAL SIGNS: Blood pressure 109/69, pulse 92, temperature 98.2, saturation 97%. GENERAL: Adult female, alert, interactive, in no acute distress. HEENT: Bilateral TMs are clear. Nares patent. Posterior pharynx without erythema. NECK: Supple. No cervical lymphadenopathy. HEART: Regular rate. LUNGS: Clear with wheezing throughout, worse at the left lower. DuoNeb is given. It produces frequent harsh coughing and a definite reduction in the wheezing, but she still has prominent rhonchi, worse at the posterior left lower lobe. Her saturation post neb is 100%. Chest x-ray is without acute infiltrate to my interpretation. ASSESSMENT: Acute bronchitis versus early pneumonia. PLAN: Zithromax Z-HENRY and a Medrol Dosepak. Symptomatic and supportive cares. Reevaluate in 48-72 hours. Call or return sooner if other concerns. KARMEN Mcclain/libia Source: [facility] RWHXTRANSXSYS Document Id: [id number] documented in this encounter Plan of Treatment Not on filedocumented as of this encounter Visit Diagnoses Not on filedocumented in this encounter
--- OUTSIDE RECORDS SUMMARY | 2022-04-25 16:10 | XMS_ITS | Encounter Summary ---
:1975 Author Organization [facility] Address [address] [place] [address] Care Team Providers Name Role Phone Unavailable [...]
--- OUTSIDE RECORDS SUMMARY | 2022-04-25 16:11 | XMS_ITS | Encounter Summary ---
:1975 Author Organization [facility] Address [address] [place] [address] Care Team Providers Name Role Phone Unavailable Primary Care Provider Unavailable Encounter Details Date Type Department Care Team Description 04/08/2010 Hospital Encounter [facility] Provider, [facility] Social History Tobacco Use Types Packs/Day Years Used Date Smoking Tobacco: Never Assessed Sex Assigned at Date Recorded Not on file documented as of this encounter Miscellaneous Notes Telephone Encounter - Conversion, Historical Provider Ser - 04/08/2010 12:00 AM CDT [id number] TELEPHONE TRIAGE ENCOUNTER FORM Date: 04/08/2010 PCP: Cotton MD Patient Name: Hue Medina Gender: female : 1975 Age: [age] year old Time: 12:39 PM Phone Numbers: [phone] (home) Pharmacy: [facility] ASSESSMENT Presenting Problem: eye problem Subjective/objective: Patient's mother called to say she was bringing her daughter in to be seen. She states that she was called because her daughter developed a large red spot in the white part of hereye. Daughter was apparently unaware of it, so probably was not painful. She is on coumadin and wants her to be seen. Onset: sudden Duration: 1 hour Associated Sx: None noted. Problem list reviewed: YES Recent History: N/A or not addressed. Recent Illness: N/A or not addressed Allergies verified: YES Precipitated by: Unknown origin Med list reviewed: YES Alleviated by: N/A Immunosuppressed:NO Conclusion / Primary Problem: Eye problem Protocol(s) Consulted: Telephone Triage Protocols for Nurses. Juan J, 2002 - 2007 eye problem pg [phone] PLAN / INTERVENTION Disposition: Referred to [facility] Caller verbalizes understanding of disposition? YES Caller agrees to plan? Yes EVALUATION / FOLLOW-UP Plans to have daughter seen in today Source: [facility] Document Id: [id number] documented in this encounter Plan of Treatment Not on filedocumented as of this encounter Visit Diagnoses Not on filedocumented in this encounter
--- OUTSIDE RECORDS SUMMARY | 2022-04-25 16:11 | XMS_ITS | Encounter Summary ---
:1975 Author Organization [facility] Address [address] [place] [address] Care Team Providers Name Role Phone Unavailable Primary Care Provider Unavailable Encounter Details Date Type Department Care Team Description 05/03/2010 Hospital Encounter HX [facility] Dick Restrepo ei, RMichaelNMichael [address] [place] [id number] Social History Tobacco Use Types Packs/Day Years Used Date Smoking Tobacco: Never Assessed Sex Assigned at Date Recorded Not on file documented as of this encounter Plan of Treatment Not on filedocumented as of this encounter Visit Diagnoses Not on filedocumented in this encounter
--- OUTSIDE RECORDS SUMMARY | 2022-04-25 16:11 | XMS_ITS | Encounter Summary ---
:1975 Author Organization [facility] Address [address] [place] [address] Care Team Providers Name Role Phone Unavailable Primary Care Provider Unavailable Encounter Details Date Type Department Care Team Description 05/06/2009 Hospital Encounter [facility]X [facility]ILYPR[facility] Marsha Garibay M.D. [address] [place], [place] [address] (Wo rk) Social History Tobacco Use Types Packs/Day Years Used Date Smoking Tobacco: Never Assessed Sex Assigned at Date Recorded Not on file documented as of this encounter Miscellaneous Notes Miscellaneous - Antonia Mcclellan R.N. - 05/06/2009 12:00 AM CST [id number] Hue Medina [address] [place] [address] May 06, 2009 Dear Hue, Your current medication request for Coumadin will be approved for one refill but you will need to beseen before any additional refills can be approved. The reason a visit needed is: You were last seen by Dr Garibay 05/16/08. You need to see your provider at least yearly to have your prescriptions refilled. Please bring all medications (in original containers) to your appointment. Taking care of your health is important to us, and ongoing visits with your provider are vital to your care. We look forward to seeing you in the near future. You may call our office at [phone] in Family Medicine to schedule a visit. Please disregard this notice if you have already made an appointment. Sincerely, FAMILY MEDICINE [facility], [address] [place] [address] Source: [facility] Document Id: [id number] Electronically signed by Conversion, [facility] Development Professional [id number] at 11/27/2016 6:55 PM CDT Telephone Encounter - Conversion, Historical Provider Ser - 05/06/2009 12:00 AM CST [id number] Accepting this Rx will FAX it directly to the pharmacy. Source: [facility] Document Id: [id number] Telephone Encounter - Antonia Mcclellan R.N. - 05/06/2009 12:00 AM CST [id number] Prescription approved for 1 month per RN refill protocol. Letter sent to patient for recheck appt. Last visit:05/16/08 Last 1 Encounter BP Readings: Date BP 12/05/2008 100/58 No exclusionary diagnoses. INR 2.41 05/05/09 Source: [facility] Document Id: [id number] Electronically signed by Conversion, [facility] Development Professional [id number] at 11/27/2016 6:55 PM CDT documented in this encounter Plan of Treatment Not on filedocumented as of this encounter Visit Diagnoses Not on filedocumented in this encounter
--- OUTSIDE RECORDS SUMMARY | 2022-04-25 16:11 | XMS_ITS | Encounter Summary ---
:1975 Author Organization [facility] Address [address] [place] [address] Care Team Providers Name Role Phone Unavailable Primary Care Provider Unavailable Encounter Details Date Type Department Care Team Description 12/01/2009 Hospital Encounter [facility] ANTICOAG Provider, His torical Social History Tobacco Use Types Packs/Day Years Used Date Smoking Tobacco: Never Assessed Sex Assigned at Date Recorded Not on file documented as of this encounter Plan of Treatment Not on filedocumented as of this encounter Visit Diagnoses Not on filedocumented in this encounter
--- OUTSIDE RECORDS SUMMARY | 2022-04-25 16:11 | XMS_ITS | Encounter Summary ---
:1975 Author Organization [facility] Address [address] [place] [address] Care Team Providers Name Role Phone Unavailable Primary Care Provider Unavailable Encounter Details Date Type Department Care Team Description 07/05/2010 Hospital Encounter HX [facility] FAM[facility] Marsha Garibay M.D. [address] [place], [place] [address] (Wo rk) Social History Tobacco Use Types Packs/Day Years Used Date Smoking Tobacco: Never Assessed Sex Assigned at Date Recorded Not on file documented as of this encounter Progress Notes Sridhar Garibay M.D. - 07/05/2010 1:30 PM CST [id number] CLINIC ENCOUNTER SUBJECTIVE: The patient presents today with sore throat for the past week. She has had a little cough as well, a little bit of congestion. No sinus pressure. No fever. She has not had much runny nose. She does have some postnasal drainage on exam though. OBJECTIVE: On examination, the patient is alert and oriented, pleasant, and cooperative with exam, no acute distress. Vitals: See nursing note. TMs bilaterally appear normal. Nares with moderate congestion, clear discharge. Oropharynx with mild posterior pharyngeal erythema with some postnasal drainage. Neck supple without lymphadenopathy. Lungs clear. ASSESSMENT: Sinusitis. PLAN: Will start amoxicillin 875 mg p.o. b.i.d. x10 days. Follow up if symptoms persist or get worse. Gabby Pérez/raul cc: Source: [facility] Document Id: [id number] Electronically signed by Conversion, [facility] Screw Supervisor [id number] at 11/27/2016 12:26 AM CDT Sridhar Garibay M.D. - 07/05/2010 1:30 PM CST [id number] This office note has been dictated. Source: [facility] Document Id: [id number] Electronically signed by Conversion, [facility] Screw Supervisor [id number] at 11/27/2016 12:26 AM CDT documented in this encounter Plan of Treatment Not on filedocumented as of this encounter Visit Diagnoses Not on filedocumented in this encounter
--- OUTSIDE RECORDS SUMMARY | 2022-04-25 16:11 | XMS_ITS | Encounter Summary ---
:1975 Author Organization [facility] Address [address] [place] [address] Care Team Providers Name Role Phone Unavailable Primary Care Provider Unavailable Encounter Details Date Type Department Care Team Description 03/02/2010 Hospital Encounter [facility] ANTICOAG Provider, His torical Social History Tobacco Use Types Packs/Day Years Used Date Smoking Tobacco: Never Assessed Sex Assigned at Date Recorded Not on file documented as of this encounter Plan of Treatment Not on filedocumented as of this encounter Visit Diagnoses Not on filedocumented in this encounter
--- OUTSIDE RECORDS SUMMARY | 2022-04-25 16:11 | XMS_ITS | Encounter Summary ---
:1975 Author Organization [facility] Address [address] [place] [address] Care Team Providers Name Role Phone Unavailable Primary Care Provider Unavailable Encounter Details Date Type Department Care Team Description 07/07/2009 Hospital Encounter [facility] ANTICOAG Provider, His torical Social History Tobacco Use Types Packs/Day Years Used Date Smoking Tobacco: Never Assessed Sex Assigned at Date Recorded Not on file documented as of this encounter Miscellaneous Notes Miscellaneous - Love Medina R.N. - 07/07/2009 11:00 AM CST [id number] Hue Medina [address] [place] [address] July 07, 2009 Dear Ms. Hue Medina: Your Lab today was: INR 2.53 07/07/09 Your target range for your condition is: 2 - 3 You should: CONTINUE YOUR CURRENT DOSE Your Coumadin Tablet Strength should be: 5 mg Daily Dose: SUN:2.5mg MON:5mg TUE:2.5mg WED:2.5mg THUR:5mg FRI:2.5mg SAT:2.5mg Number of Pills to take each day: SUN:06/27 MON:1 TUE:2 WED:2 THUR:1 FRI:2 SAT:2 Your next lab appointment is scheduled for: 08/04/2009 [facility] labs must be drawn before 3 PM. [facility] labs must be drawn before 12 NOON. If you have questions regarding any of the above information or feel the information is not accurateplease call [phone] or ext. [phone]. Thank you, Love Medina [facility] staff: Eliana Farooq, RN; Antonia Mcclellan, RN; Fina Peres, RN; Ermelinda Casas, RN; Mima Campo, RN; Love Medina, RN Source: [facility] RWMCHXTRANSXRTFSYS Document Id: [id number] Electronically signed by Lay, [facility] As400 Operator [id number] at 11/27/2016 7:09 AM CDT documented in this encounter Plan of Treatment Not on filedocumented as of this encounter Visit Diagnoses Not on filedocumented in this encounter
--- OUTSIDE RECORDS SUMMARY | 2022-04-25 16:11 | XMS_ITS | Encounter Summary ---
:1975 Author Organization [facility] Address [address] [place] [address] Care Team Providers Name Role Phone Unavailable Primary Care Provider Unavailable Encounter Details Date Type Department Care Team Description 08/04/2009 Hospital Encounter [facility] ANTICOAG Provider, His torical Social History Tobacco Use Types Packs/Day Years Used Date Smoking Tobacco: Never Assessed Sex Assigned at Date Recorded Not on file documented as of this encounter Plan of Treatment Not on filedocumented as of this encounter Visit Diagnoses Not on filedocumented in this encounter
--- OUTSIDE RECORDS SUMMARY | 2022-04-25 16:11 | XMS_ITS | Encounter Summary ---
:1975 Author Organization [facility] Address [address] [place] [address] Care Team Providers Name Role Phone Unavailable Primary Care Provider Unavailable Encounter Details Date Type Department Care Team Description 10/06/2009 Hospital Encounter [facility] ANT[facility] Provider, His torical Social History Tobacco Use Types Packs/Day Years Used Date Smoking Tobacco: Never Assessed Sex Assigned at Date Recorded Not on file documented as of this encounter Plan of Treatment Not on filedocumented as of this encounter Visit Diagnoses Not on filedocumented in this encounter
--- OUTSIDE RECORDS SUMMARY | 2022-04-25 16:11 | XMS_ITS | Encounter Summary ---
:1975 Author Organization [facility] Address [address] [place] [address] Care Team Providers Name Role Phone Unavailable Primary Care Provider Unavailable Encounter Details Date Type Department Care Team Description 04/08/2010 Hospital Encounter HX NO MAPPING Provider, Historical Social History Tobacco Use Types Packs/Day Years Used Date Smoking Tobacco: Never Assessed Sex Assigned at Date Recorded Not on file documented as of this encounter Progress Notes Conversion, Historical Provider Ser - 04/08/2010 1:00 PM CDT [id number] SUBJECTIVE: 35-year-old patient who presents to Urgent Care with a chief complaint of red right eye. She is here with her caregiver. Caregiver reports that at work today they called her to alert her that patient's eye was red. Patient denies any pain in the right eye. She did not know it was red until somewhat told her it was. Denies any itching. No vision changes, no blurred vision, no discharge from the eye. Denies any recent cold symptoms. No ear popping or pain, sinus congestion, sore throat or cough. Otherwise in good health. PAST MEDICAL HISTORY: DVT and Down's syndrome. USUAL MEDS: She is on coumadin. Her last INR checked was 03/30/10, it was 3.37 at this time and no changes to her coumadin were done. ALLERGIES: No known drug allergies. OBJECTIVE: Vital signs: Noted in Epic. Constitutional: Patient is resting comfortably in exam room, no acute distress. Alert and oriented, and answers questions appropriately. Cardiovascular: Heart rate regular rate and rhythm without murmur or extra heart sounds. Respiratory: Lung sounds clear to auscultation throughout, even easy breathing. Head: Normocephalic, midline on shoulders. Tympanic membranes visualized bilaterally. Bony landmarks in place without redness or swelling. Ear canals patent bilaterally without redness or swelling. Nose: Nasal mucosa is pink and moist without drainage. Oral exam: [place] and moist mucosa. No tonsillar hypertrophy. Posterior pharynx without redness or swelling. Lymphs: No palpable lymph nodes or lymphadenopathy. Eyes: On the medial aspect of the conjunctiva of her right eye, she does reddened area approximately 1/2 centimeter in diameter. It is a concentrated area of red injection. Surrounding that her eye it not injected without drainage. There is no proptosis of the eye. The periorbital area is without reddening or swelling. Her left eye is not injected without redness, swelling or drainage. Pupils are equally round, reactive to light and accommodation. Red light reflex positive in both eyes. She has smooth of the 8 cardinal directions of eye movement. Vision is grossly intact. INR was obtained and today it is 3.03. ASSESSMENT: Conjunctival hemorrhage. PLAN: Discussed with patient and caregiver her diagnosis. Discussed things that may precipitation a conjunctival hemorrhage including straining, such as straining with a bowel movement or stress. Otherwise discussed that this condition is self limiting. If symptoms are not resolved or become worse, patient is to return to care. LATHA Olmstead/yarelis Source: [facility] RWHXTRANSXRTFSYS Document Id: [id number] documented in this encounter Plan of Treatment Not on filedocumented as of this encounter Visit Diagnoses Not on filedocumented in this encounter
--- OUTSIDE RECORDS SUMMARY | 2022-04-25 16:11 | XMS_ITS | Encounter Summary ---
:1975 Author Organization [facility] Address [address] [place] [address] Care Team Providers Name Role Phone Unavailable Primary Care Provider Unavailable Encounter Details Date Type Department Care Team Description 06/04/2009 Hospital Encounter [facility] Andrea Whipple M.D. [address] [place], [place] [address] (Wo rk) Social History Tobacco Use Types Packs/Day Years Used Date Smoking Tobacco: Never Assessed Sex Assigned at Date Recorded Not on file documented as of this encounter Plan of Treatment Not on filedocumented as of this encounter Visit Diagnoses Not on filedocumented in this encounter
--- OUTSIDE RECORDS SUMMARY | 2022-04-25 16:11 | XMS_ITS | Encounter Summary ---
:1975 Author Organization [facility] Address [address] [place] [address] Care Team Providers Name Role Phone Unavailable Primary Care Provider Unavailable Encounter Details Date Type Department Care Team Description 12/29/2009 Hospital Encounter [facility] ANTICOAG Provider, His torical Social History Tobacco Use Types Packs/Day Years Used Date Smoking Tobacco: Never Assessed Sex Assigned at Date Recorded Not on file documented as of this encounter Plan of Treatment Not on filedocumented as of this encounter Visit Diagnoses Not on filedocumented in this encounter
--- OUTSIDE RECORDS SUMMARY | 2022-04-25 16:11 | XMS_ITS | Encounter Summary ---
:1975 Author Organization [facility] Address [address] [place] [address] Care Team Providers Name Role Phone Unavailable Primary Care Provider Unavailable Encounter Details Date Type Department Care Team Description 11/03/2009 Hospital Encounter [facility] ANTICOAG Provider, His torical Social History Tobacco Use Types Packs/Day Years Used Date Smoking Tobacco: Never Assessed Sex Assigned at Date Recorded Not on file documented as of this encounter Plan of Treatment Not on filedocumented as of this encounter Visit Diagnoses Not on filedocumented in this encounter
--- OUTSIDE RECORDS SUMMARY | 2022-04-25 16:11 | XMS_ITS | Encounter Summary ---
:1975 Author Organization [facility] Address [address] [place] [address] Care Team Providers Name Role Phone Unavailable Primary Care Provider Unavailable Encounter Details Date Type Department Care Team Description 07/05/2010 Hospital Encounter [facility] Provider, [facility] Social History Tobacco Use Types Packs/Day Years Used Date Smoking Tobacco: Never Assessed Sex Assigned at Date Recorded Not on file documented as of this encounter Miscellaneous Notes Telephone Encounter - Conversion, Historical Provider Ser - 07/05/2010 12:00 AM CST [id number] TELEPHONE TRIAGE ENCOUNTER FORM Date: 07/05/2010 PCP: Cotton MD Patient Name: Hue Medina Gender: female : 1975 Age: [age] year old Time: 10:55 AM Phone Numbers: [phone] (home) Pharmacy: [facility] [employer] [facility] [place] [place] ASSESSMENT Presenting Problem: sore throat Subjective/objective: Patient's mother reports that patient has had a sore throat x one week. She also has cold symptoms. Is c/o chest discomfort this am. Mom wants Hue examined to rule out strep throat. Onset: worsening Duration: 1 weeks Associated Sx: No fever noted. cold symptoms Problem list reviewed: YES Recent History: N/A or not addressed. Recent Illness: No Allergies verified: N/A or not addressed Precipitated by: Unknown origin Med list reviewed: YES Alleviated by: N/A Immunosuppressed:N/A or not addressed Conclusion / Primary Problem: Sore throat,cold symptoms Protocol(s) Consulted: Per Nursing Judgement PLAN / INTERVENTION Disposition: Referred to clinic - within 24 hours Caller verbalizes understanding of disposition? YES Caller agrees to plan? Yes EVALUATION / FOLLOW-UP Transferred caller to appointment desk to schedule appointment for today Source: [facility] RWHXTRANSXRTFSYS Document Id: [id number] documented in this encounter Plan of Treatment Not on filedocumented as of this encounter Visit Diagnoses Not on filedocumented in this encounter
--- OUTSIDE RECORDS SUMMARY | 2022-04-25 16:11 | XMS_ITS | Encounter Summary ---
:1975 Author Organization [facility] Address [address] [place] [address] Care Team Providers Name Role Phone Unavailable Primary Care Provider Unavailable Encounter Details Date Type Department Care Team Description 03/30/2010 Hospital Encounter HX [facility] ANTICOAG Provider, His torical Social History Tobacco Use Types Packs/Day Years Used Date Smoking Tobacco: Never Assessed Sex Assigned at Date Recorded Not on file documented as of this encounter Plan of Treatment Not on filedocumented as of this encounter Visit Diagnoses Not on filedocumented in this encounter
--- OUTSIDE RECORDS SUMMARY | 2022-04-25 16:11 | XMS_ITS | Encounter Summary ---
:1975 Author Organization [facility] Address [address] [place] [address] Care Team Providers Name Role Phone Unavailable Primary Care Provider Unavailable Encounter Details Date Type Department Care Team Description 06/02/2009 Hospital Encounter HX [facility] ANTICOAG Provider, His torical Social History Tobacco Use Types Packs/Day Years Used Date Smoking Tobacco: Never Assessed Sex Assigned at Date Recorded Not on file documented as of this encounter Miscellaneous Notes Miscellaneous - Love Medina R.N. - 06/02/2009 9:00 AM CST [id number] Hue Medina [address] [place] [address] June 02, 2009 Dear Ms. Hue Medina: Your Lab today was: INR 2.29 06/02/09 Your target range for your condition is: 2 - 3 You should: CONTINUE YOUR CURRENT DOSE Your Coumadin Tablet Strength should be: 5 mg Daily Dose: SUN:2.5mg MON:5mg TUE:2.5mg WED:2.5mg THUR:5mg FRI:2.5mg SAT:2.5mg Number of Pills to take each day: SUN:06/27 MON:1 TUE:12 WED:2 THUR:1 FRI:2 SAT:2 Your next lab appointment is scheduled for: 06/29/2008 (also have appointment the same day with Dr. Kim) [facility] labs must be drawn before 3 PM. [facility] labs must be drawn before 12 NOON. If you have questions regarding any of the above information or feel the information is not accurateplease call [phone] or ext. [phone]. Thank you, Love Medina [facility] staff: Eliana Farooq, RN; Antonia Mcclellan, RN; Fina Peres, RN; Ermelinda Casas, RN; Mima Campo, RN; Love Medina, RN Source: [facility] Document Id: [id number] Electronically signed by [facility] Director Furniture [id number] at 11/27/2016 8:06 PM CDT [place] - Love Medina R.N. - 06/02/2009 9:00 AM CST [id number] Hue Bellamy Carol [address] [place] [address] June 02, 2009 Dear Ms. Hue Bellamy Carol: Your Lab today was: INR 2.29 06/02/09 Your target range for your condition is: 2 - 3 You should: CONTINUE YOUR CURRENT DOSE Your Coumadin Tablet Strength should be: 5 mg Daily Dose: SUN:2.5mg MON:5mg TUE:2.5mg WED:2.5mg THUR:5mg FRI:2.5mg SAT:2.5mg Number of Pills to take each day: SUN:2 MON:1 TUE:2 WED:06/27 THUR:1 FRI:06/27 SAT:2 Your next lab appointment is scheduled for: [facility] labs must be drawn before 3 PM. [facility] labs must be drawn before 12 NOON. If you have questions regarding any of the above information or feel the information is not accurateplease call [phone] or ext. [phone]. Thank you, Love Medina [facility] staff: Eliana Farooq, RN; Antonia Mcclellan, RN; Fina Peres, RN; Ermelinda Casas, RN; Mima Campo, RN; Love Medina, ANGELINE Source: [facility] Document Id: [id number] Electronically signed by [facility], [facility] Director Furniture [id number] at 11/27/2016 8:06 PM CDT documented in this encounter Plan of Treatment Not on filedocumented as of this encounter Visit Diagnoses Not on filedocumented in this encounter
--- OUTSIDE RECORDS SUMMARY | 2022-04-25 16:11 | XMS_ITS | Encounter Summary ---
:1975 Author Organization [facility] Address [address] [place] [address] Care Team Providers Name Role Phone Unavailable Primary Care Provider Unavailable Encounter Details Date Type Department Care Team Description 04/20/2010 Hospital Encounter HX [facility] ANTICOAG Provider, His torical Social History Tobacco Use Types Packs/Day Years Used Date Smoking Tobacco: Never Assessed Sex Assigned at Date Recorded Not on file documented as of this encounter Plan of Treatment Not on filedocumented as of this encounter Visit Diagnoses Not on filedocumented in this encounter
--- OUTSIDE RECORDS SUMMARY | 2022-04-25 16:11 | XMS_ITS | Encounter Summary ---
:1975 Author Organization [facility] Address [address] [place] [address] Care Team Providers Name Role Phone Unavailable Primary Care Provider Unavailable Encounter Details Date Type Department Care Team Description 05/11/2010 Hospital Encounter HX [facility] ANTICOAG Provider, His torical Social History Tobacco Use Types Packs/Day Years Used Date Smoking Tobacco: Never Assessed Sex Assigned at Date Recorded Not on file documented as of this encounter Plan of Treatment Not on filedocumented as of this encounter Visit Diagnoses Not on filedocumented in this encounter
--- OUTSIDE RECORDS SUMMARY | 2022-04-25 16:11 | XMS_ITS | Encounter Summary ---
:1975 Author Organization [facility] Address [address] [place] [address] Care Team Providers Name Role Phone Unavailable Primary Care Provider Unavailable Encounter Details Date Type Department Care Team Description 07/17/2009 Hospital Encounter HX [facility] Kalyn Stafford M.D. [address] [place], [place] [phone] (Wo rk) Social History Tobacco Use Types Packs/Day Years Used Date Smoking Tobacco: Never Assessed Sex Assigned at Date Recorded Not on file documented as of this encounter Progress Notes Conversion, Historical Provider Frank - 07/17/2009 3:30 PM CST [id number] Addended by: PERLA BOONE on: 07/17/2009 4:40:46 PM Modules accepted: Orders, SmartSet [facility] Document Id: [id number] Marie Kim M.D. - 07/17/2009 3:30 PM CST [id number] Hue is a 34 year old here for her annual exam. Obstetric History T0 E0 M0 L0 using none for contraception. 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 Her menses are regular every 28 days X 5 days, not heavy, not painful HPI: Would like ear checked. PAST MEDICAL HISTORY: Past Medical History Diagnosis Date Down's Syndrome Ostium Secundum Type Atrial Septal Defect Mitral Valve Disorders cleft mitral valve Cellulitis and Abscess of Leg, except Foot 01/15/00 L lower leg Deep Phlebitis-Leg NEC 06/08/07 PAST SURGICAL HISTORY: Past Surgical History Procedure Date Rw general surg (abstracted) 01/15/00 I & D w debridement, L thigh and leg cellulitis/abscess CURRENT MEDICATIONS: Current outpatient prescriptions Medication Sig PERIOSTAT 20 MG OR TABS 1 TABLET EVERY 12 HOURS ON EMPTY STOMACH NEW MED Rx mouth wash - daily COUMADIN 5 MG OR TABS 5mg Mon & Thurs, 2.5mg all other days or as directed per INR clinic KENALOG 0.1 % EX CREA apply bid to affected area prn LOPERAMIDE HCL 2 MG OR TABS 1 TABLET NEEDED CALCIUM + D OR 1 TABLET DAILY ALLERGIES: Quinolones, Bees and Chloramphenicol FAMILY HX: Family History Problem Relation Cancer Maternal Aunt breast Thyroid Maternal Aunt several maternal aunts Anesthesia No family hx of Blood Disease No family hx of Neurological No family hx of Cardiovascular Maternal Uncle anurism and a bulge on aorta at age 64 ROS: REVIEW OF SYSTEMS: NEUROLOGIC: Negative EYES: Negative ENT: Negative GI: Negative BREAST: Negative : Negative AUTOCAD OPERATOR: Negative CV: Negative PULMONARY: Negative MUSCULOSKELETAL: Negative PSYCH: Negative SOCIAL HISTORY: History Social History Marital Status: Single Spouse Name: N/A Number of Children: 0 Years of Education: N/A Occupational History Not on file. Social History Main Topics Tobacco Use: Never Alcohol Use: Yes special occasion Drug Use: No Sexually Active: No Other Topics Concern Blood Transfusions No Caffeine Concern No Sleep Concern No Stress Concern No Weight Concern No Exercise Yes Seat Belt Yes Self-exams No Social History Narrative No narrative on file HEALTH HABITS: calcium intake takes supplements, last dT 2006, last lipids 2003, last mammogram N/A,last pap 2007 and was normal, PHYSICAL EXAM: This is a well-developed, well-nourished female in no apparent distress. ENT: ENT exam normal, no neck nodes or sinus tenderness. NECK: Supple, no adenopathy and thyroid normal. LUNGS: Normal - Clear to auscultation without rales, rhonchi, or wheezing.. HEART: Regular rate, rhythm and No murmur, rub, gallop. BREASTS: No masses, skin, nipple or axillary changes. ABDOMEN: Benign, Soft, flat, non-tender, No masses, organomegaly and No inguinal nodes. PELVIC EXAM: Lymph: no enlarged groin nodes External genitalia: normal development, normal BUS, no lesions Perineum: normal skin, no lesions, good support Urethra meatus: normal , no lesion or caruncle Urethra: normal, nontender Bladder: nontender, no masses, not enlarged Vagina:normal mucosa and ruggae, no lesions not atrophic Cervix:primiparous and no lesions Uterus: smooth, firm, mobile, without irregularities Adnexa: not palpable RV: not indicated Rectum: no hemorrhoids, no bleeding EXTREMITIES: Normal. NEUROLOGIC: Normal. SKIN: scattered benign nevi ASSESSMENT AND PLAN: Annual Manager Warehouse exam. 2. Protein S deficiency, DVT-lifelong coumadin. 3. Cerumen impaction-irrigated 4. Hematuria- about once a month, will check UA. If +hematuria then will refer to urology Health maintenance includes: H1N1. Pap every 3 yrs-never sexually active, last one 05/03, fasting lipids, FBS, TSH with her next PT/PTT. [facility] Document Id: [id number] Electronically signed by Conversion, [facility] Cork Insulator Helper [id number] at 11/27/2016 7:09 AM CDT Conversion, Historical Provider Ser - 07/17/2009 3:30 PM CST [id number] Hue Medina is a 34 year old female. Patient received: FLU H1N1 INJECTION Patient Questionaire: I have a fever or feel ill today? No I have an allergy to eggs, gelatin or thimerosal? No I have had a reaction to the flu vaccine the past? No I have had Guillain-[place] syndrome? No VIS information given Source[facility] Document Id: [id number] documented in this encounter Plan of Treatment Not on filedocumented as of this encounter Visit Diagnoses Not on filedocumented in this encounter
--- OUTSIDE RECORDS SUMMARY | 2022-04-25 16:11 | XMS_ITS | Encounter Summary ---
:1975 Author Organization [facility] Address [address] [place] [address] Care Team Providers Name Role Phone Unavailable Primary Care Provider Unavailable Encounter Details Date Type Department Care Team Description 05/26/2009 Hospital Encounter [facility] Marsha Garibay M.D. [address] [place], [place] [address] (Wo rk) Social History Tobacco Use Types Packs/Day Years Used Date Smoking Tobacco: Never Assessed Sex Assigned at Date Recorded Not on file documented as of this encounter Miscellaneous Notes Telephone Encounter - Marya Alvarez L.P.N. - 05/26/2009 12:00 AM CST [id number] Situation/What is the patients concern/need: Mom needs refills Clinical Background/Recent Intervention: Called to discuss her concern that the letter patient got states that she cannot get refills of coumadin. Per her visit with specialist in November, needs to stay on indefinately. Discussed that the letterwas gererated in accordance to the fact that pt is over due for annual. Does have FIRE CLAIMS ADJUSTER appt in June and Mom feels does not need further visit with you. Recommendation/Patient Request: If ok, Accepting this Rx will be faxed directly to pharmacy. Best number(s) to reach patient: castro-[place] [phone]. Source: [facility] Document Id: [id number] Telephone Encounter - Sridhar Garibay M.D. - 05/26/2009 12:00 AM SWIMMING POOL INSTALLER [id number] I will refill but obviously would recommend she see me at least annually. Thanks. Source: [facility] Document Id: [id number] Telephone Encounter - Marya Alvarez L.P.N. - 05/26/2009 12:00 AM CST [id number] Called mom to inform of your request and refill. She will encourage patient to make appt. Source: [facility] Document Id: [id number] documented in this encounter Plan of Treatment Not on filedocumented as of this encounter Visit Diagnoses Not on filedocumented in this encounter
--- OUTSIDE RECORDS SUMMARY | 2022-04-25 16:11 | XMS_ITS | Encounter Summary ---
:1975 Author Organization [facility] Address [address] [place] [address] Care Team Providers Name Role Phone Unavailable Primary Care Provider Unavailable Encounter Details Date Type Department Care Team Description 06/30/2009 Hospital Encounter [facility] Marsha Garibay M.D. [address] [place], [place] [address] (Wo rk) Social History Tobacco Use Types Packs/Day Years Used Date Smoking Tobacco: Never Assessed Sex Assigned at Date Recorded Not on file documented as of this encounter Miscellaneous Notes Miscellaneous - Conversion, Historical Provider Ser - 06/30/2009 12:00 AM PINBALL MACHINE REPAIRER [id number] June 30, 2009 Hue Medina [address] [place] [address] RE: Consent/Signature Form Account Number: Insurance: Dear Ms. Medina., It has come to our attention that the consent/signature forms that require annual signatures have not yet been completed. This has caused the inability for us to submit your recent claim(s) to your insurance carrier. In order to avoid these becoming totally your responsibility, we need your signed consent. Please read and sign below to give consent and return to us in the enclosed envelope. I hereby authorize my insurance benefits to be paid directly to [facility], realizing I am responsible to pay non-covered services, or all charges if there is no insurance coverage. I hereby authorize the release of pertinent medical information to insurance carriers, health maintenance organizations, government payors or third alliance party administrators for billing, fraud investigation or quality of care purposes as outlined in my policy documents. The signature on this document represents my authorization for all past claims within the past 4 months as well as current claims for the next 12 months. <Name> <Date> Please feel free to contact our office at [phone] or toll free at if you have questions. Sincerely, [facility] Services Patient Financial Services env Source: [facility] RWHXTRANSXRTFSYS Document Id: [id number] documented in this encounter Plan of Treatment Not on filedocumented as of this encounter Visit Diagnoses Not on filedocumented in this encounter
--- OUTSIDE RECORDS SUMMARY | 2022-04-25 16:11 | XMS_ITS | Encounter Summary ---
:1975 Author Organization [facility] Address [address] [place] [address] Care Team Providers Name Role Phone Unavailable Primary Care Provider Unavailable Encounter Details Date Type Department Care Team Description 09/08/2009 Hospital Encounter HX [facility] Provider, His torical Social History Tobacco Use Types Packs/Day Years Used Date Smoking Tobacco: Never Assessed Sex Assigned at Date Recorded Not on file documented as of this encounter Miscellaneous Notes Miscellaneous - Love Medina R.N. - 09/08/2009 2:40 PM CDT [id number] Hue Bellamy Carol [address] [facility] [address] [facility] September 08, 2009 Dear Ms. Hue Bellamy Carol: Your Lab today was: INR 2.67 09/08/2009 Your target range for your condition is: 2 - 3 You should: CONTINUE YOUR CURRENT DOSE Your Coumadin Tablet Strength should be: 5 mg Daily Dose: SUN:2.5mg MON:5mg TUE:2.5mg WED:2.5mg THUR:5mg FRI:2.5mg SAT:2.5mg Number of Pills to take each day: SUN:06/27 MON:1 TUE:12 WED:2 THUR:1 FRI:2 SAT:2 Your next lab appointment is scheduled for: 10/06/2009 Main and [facility] labs must be drawn before 3 PM. [facility] labs must be drawn before 12 NOON. If you have questions regarding any of the above information or feel the information is not accurateplease call [phone] or [phone]. [phone]. Thank you, Love Medina [facility] staff: Eliana Farooq, RN; Antonia Mcclellan, RN; Fina Peres, RN; Ermelinda Casas, RN; Mima Campo, RN; Love Medina, RN Source: [facility] RWMCHXTRANSXRTFSYS Document Id: [id number] documented in this encounter Plan of Treatment Not on filedocumented as of this encounter Visit Diagnoses Not on filedocumented in this encounter
--- OUTSIDE RECORDS SUMMARY | 2022-04-25 16:11 | XMS_ITS | Encounter Summary ---
:1975 Author Organization [facility] Address [address] [place] [address] Care Team Providers Name Role Phone Unavailable Primary Care Provider Unavailable Encounter Details Date Type Department Care Team Description 02/02/2010 Hospital [facility] Provider, His torical Social History Tobacco Use Types Packs/Day Years Used Date Smoking Tobacco: Never Assessed Sex Assigned at Date Recorded Not on file documented as of this encounter Plan of Treatment Not on filedocumented as of this encounter Visit Diagnoses Not on filedocumented in this encounter
--- OUTSIDE RECORDS SUMMARY | 2022-04-25 16:11 | XMS_ITS | Encounter Summary ---
:1975 Author Organization [facility] Address [address] [place] [address] Care Team Providers Name Role Phone Unavailable Primary Care Provider Unavailable Encounter Details Date Type Department Care Team Description 05/05/2009 Hospital Encounter HX [facility] ANTICO[facility] Provider, His torical Social History Tobacco Use Types Packs/Day Years Used Date Smoking Tobacco: Never Assessed Sex Assigned at Date Recorded Not on file documented as of this encounter Plan of Treatment Not on filedocumented as of this encounter Visit Diagnoses Not on filedocumented in this encounter
--- OUTSIDE RECORDS SUMMARY | 2022-04-25 16:11 | XMS_ITS | Encounter Summary ---
:1975 Author Organization [facility] Address [address] [place] [address] Care Team Providers Name Role Phone Unavailable Primary Care Provider Unavailable Encounter Details Date Type Department Care Team Description 04/27/2010 Hospital Encounter [facility] Provider, His torical Social History Tobacco Use Types Packs/Day Years Used Date Smoking Tobacco: Never Assessed Sex Assigned at Date Recorded Not on file documented as of this encounter Plan of Treatment Not on filedocumented as of this encounter Visit Diagnoses Not on filedocumented in this encounter
--- OUTSIDE RECORDS SUMMARY | 2022-04-25 16:11 | XMS_ITS | Encounter Summary ---
:1975 Author Organization [facility] Address [address] [place] [address] Care Team Providers Name Role Phone Unavailable Primary Care Provider Unavailable Encounter Details Date Type Department Care Team Description 06/08/2010 Hospital Encounter HX [facility] ANTICO[facility] Provider, His torical Social History Tobacco Use Types Packs/Day Years Used Date Smoking Tobacco: Never Assessed Sex Assigned at Date Recorded Not on file documented as of this encounter Plan of Treatment Not on filedocumented as of this encounter Visit Diagnoses Not on filedocumented in this encounter
--- OUTSIDE RECORDS SUMMARY | 2022-04-25 16:12 | XMS_ITS | Encounter Summary ---
:1975 Author Organization [facility] Address [address] [place] [address] Care Team Providers Name Role Phone Unavailable Primary Care Provider Unavailable Encounter Details Date Type Department Care Team Description 05/20/2008 Hospital Encounter HX NO MAPPING Luis Fernando Kim M.D. [address] [place], [place] [phone] (Wo rk) Social History Tobacco Use Types Packs/Day Years Used Date Smoking Tobacco: Never Assessed Sex Assigned at Date Recorded Not on file documented as of this encounter Plan of Treatment Not on filedocumented as of this encounter Visit Diagnoses Not on filedocumented in this encounter
--- OUTSIDE RECORDS SUMMARY | 2022-04-25 16:12 | XMS_ITS | Encounter Summary ---
:1975 Author Organization [facility] Address [address] [place] [address] Care Team Providers Name Role Phone Unavailable Primary Care Provider Unavailable Encounter Details Date Type Department Care Team Description 04/03/2008 Hospital Encounter HX [facility] Provider, [facility] Social History Tobacco Use Types Packs/Day Years Used Date Smoking Tobacco: Never Assessed Sex Assigned at Date Recorded Not on file documented as of this encounter Miscellaneous Notes Miscellaneous - Ermelinda Casas RViktor - 04/03/2008 8:30 AM CDT [id number] Hue Medina [address] [place] [address] April 03, 2008 Dear Ms. Hue Medina: Your Lab today was: INR 1.77 04/03/08 Your target range for your condition is: 2 - 3 You should: CHANGE YOUR COUMADIN DOSE Your Coumadin Tablet Strength should be: 5 mg Daily Dose: SUN:2.5mg MON:2.5mg TUE:2.5mg WED:2.5mg THUR:5mg FRI:2.5mg SAT:2.5mg Number of Pills to take each day: SUN:2 MON:1/2 TUE:12 WED:2 THUR:1 FRI:2 SAT:1/2 Your next lab appointment is scheduled for: 04/17/08. Main and [facility] labs must be drawn before 3 PM. [facility] and [facility] labs must be drawn before 12 NOON. If you have questions regarding any of the above information or feel the information is not accurateplease call [phone] or [phone]. [phone]. Thank you, Ermelinda Casas [facility] staff: Eliana Farooq, RN; Antonia Mcclellan, RN; Radha Candelaria RN; Fina Peres, RN; Ermelinda Casas, RN; Mima Campo, RN Source: [facility] Document Id: [id number] documented in this encounter Plan of Treatment Not on filedocumented as of this encounter Visit Diagnoses Not on filedocumented in this encounter
--- OUTSIDE RECORDS SUMMARY | 2022-04-25 16:12 | XMS_ITS | Encounter Summary ---
:1975 Author Organization [facility] Address [address] [place] [address] Care Team Providers Name Role Phone Unavailable Primary Care Provider Unavailable Encounter Details Date Type Department Care Team Description 11/25/2008 Hospital Encounter HX [facility] ANT[facility] Provider, His torical Social History Tobacco Use Types Packs/Day Years Used Date Smoking Tobacco: Never Assessed Sex Assigned at Date Recorded Not on file documented as of this encounter Plan of Treatment Not on filedocumented as of this encounter Visit Diagnoses Not on filedocumented in this encounter
--- OUTSIDE RECORDS SUMMARY | 2022-04-25 16:12 | XMS_ITS | Encounter Summary ---
:1975 Author Organization [facility] Address [address] [place] [address] Care Team Providers Name Role Phone Unavailable Primary Care Provider Unavailable Encounter Details Date Type Department Care Team Description 05/08/2008 Hospital Encounter HX [facility] Kalyn Kim M.D. [address] [place] [phone] (Wo rk) Social History Tobacco Use Types Packs/Day Years Used Date Smoking Tobacco: Never Assessed Sex Assigned at Date Recorded Not on file documented as of this encounter Progress Notes Marie Kim M.D. - 05/08/2008 3:15 PM CST [id number] Hue is a 33 year old here for her annual exam. Obstetric History T0 P0 TAB0 SAB0 E0 M0 L0 using none for contraception. 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 Her menses are once every 4-5 weeks off OCPs, no sig cramps, not heavy, nobleeding between cycles HPI: She got DVT on OCPs, now on coumadin. She is here with her Mother, patient with Down's. Wants ears checked, gets cerumen impacted. PAST MEDICAL HISTORY: Past Medical History Diagnosis Date Down's Syndrome Ostium Secundum Type Atrial Septal Defect Mitral Valve Disorders cleft mitral valve Cellulitis and Abscess of Leg, except Foot 01/15/00 L lower leg Deep Phlebitis-Leg NEC 06/08/07 PAST SURGICAL HISTORY: Past Surgical History Procedure Date general surg (abstracted) 01/15/00 I & D w debridement, L thigh and leg cellulitis/abscess CURRENT MEDICATIONS: Current outpatient prescriptions Medication Sig COUMADIN 5 MG OR TABS One tablet by mouth once daily to be adjusted by INR clinic KENALOG 0.1 % EX CREA apply bid to affected area prn CALCIUM + D OR 1 TABLET DAILY TYLENOL/CODEINE #3 300-30 MG OR TABS ONE TO TWO TABLETS EVERY 4 TO 6 HOURS NEEDED FOR PAIN LOPERAMIDE HCL 2 MG OR TABS 1 TABLET NEEDED ALLERGIES: Quinolones, Bees and Chloramphenicol FAMILY HX: [...] Negative GI: Negative BREAST: Negative : Negative EMPLOYMENT ADJUDICATOR: Negative CV: Negative PULMONARY: Negative MUSCULOSKELETAL: Negative PSYCH: Negative SOCIAL HISTORY: History Social History Marital Status: Single Spouse Name: N/A Number of Children: 0 Years of Education: N/A Occupational History Not on file. Social History Main Topics Tobacco Use: Never Alcohol Use: Yes special occasion Drug Use: No Sexually Active: Yes -- Male partner(s) Other Topics Concern Blood Transfusions No Caffeine Concern No Sleep Concern No Stress Concern No Weight Concern No Exercise Yes Seat Belt Yes Self-exams No Social History Narrative No narrative on file PHYSICAL EXAM: This is a well-developed, well-nourished female in no apparent distress. ENT: TMs blocked bilaterally due to cerumen without ENT exam normal, no neck nodes or sinus tenderness. NECK: Supple, no adenopathy and thyroid normal. LUNGS: Normal - Clear to auscultation without rales, rhonchi, or wheezing.. HEART: Regular rate, rhythm and No murmur, rub, gallop. BREASTS: No masses, skin, nipple or axillary changes. ABDOMEN: Benign, Soft, flat, non-tender, No masses, organomegaly, No inguinal nodes and Bowel soundsnormoactive. PELVIC EXAM: Lymph: no enlarged groin nodes External genitalia: normal development, normal BUS, no lesions Perineum: normal skin, no lesions, good support Urethra meatus: normal , no lesion or caruncle Urethra: normal, nontender Bladder: nontender, no masses, not enlarged Vagina:introitus admits 5th finger, tight. normal mucosa and ruggae, no lesions not atrophic Cervix:primiparous and no lesions Uterus: unable to assess due to poor cooperation, discomfort Adnexa: unable to assess due to patient discomfort, poor cooperation RV: not indicated Rectum: no hemorrhoids, no bleeding EXTREMITIES: Normal. NEUROLOGIC: Normal. SKIN: scattered benign nevi, psoriasis Cerumen irrigation-warm water used to gently irrigate cerumen bilaterally ASSESSMENT AND PLAN: Annual Cloth Printing Back Tender exam, Down's female, partially intact hymen- admits 5th finger with sig discomfort. 2.history of dysmenorrhea-had been on OCPs until DVT. Now states menses are not painful or heavy. 3. Cerumen impaction-irrigated. 4. Has decreased compliance with insolvency practitioner exam-am unable to assess clinically so will get pelvic US (abdominal-will be unable to get probe into vagina). Health maintenance includes: pap smear done today. Source: [facility] Document Id: [id number] Electronically signed by [facility], [facility] Underwriting Intern [id number] at 11/28/2016 1:34 AM CDT documented in this encounter Miscellaneous Notes Miscellaneous - Conversion, Historical Provider Ser - 05/08/2008 3:15 PM BEET TOPPER [id number] Hue Medina [address] [place] [address] May 12, 2008 Dear Hue Medina, I am happy to inform you that your recent cervical cancer screening test (PAP smear) was normal. Preventative screening such as this helps insure your health for years to come. Congratulations for taking care of yourself! Please contact my office if you have any further questions. [phone]. Sincerely, Marie Kim M.D. OBSTETRICS/GYNECOLOGY [facility] Source: [facility]ENTERXTRANSXRTFMO[facility] Document Id: [id number] Miscellaneous - Conversion, Historical Provider Ser - 05/08/2008 3:15 PM BEET TOPPER [id number] Hue Medina [address] [place] [address] May 12, 2008 Dear Hue Medina, I am happy to inform you that your recent cervical cancer screening test (PAP smear) was normal. Preventative screening such as this helps insure your health for years to come. Congratulations for taking care of yourself! Please contact my office if you have any further questions. [phone]. Sincerely, Marie Kim M.D. OBSTETRICS/GYNECOLOGY [facility] Source: [facility] Document Id: [id number] documented in this encounter Plan of Treatment Not on filedocumented as of this encounter Visit Diagnoses Not on filedocumented in this encounter
--- OUTSIDE RECORDS SUMMARY | 2022-04-25 16:12 | XMS_ITS | Encounter Summary ---
:1975 Author Organization [facility] Address [address] [place] [address] Care Team Providers Name Role Phone Unavailable Primary Care Provider Unavailable Encounter Details Date Type Department Care Team Description 06/12/2008 Hospital Encounter [facility] Provider, Renny avila Social History Tobacco Use Types Packs/Day Years Used Date Smoking Tobacco: Never Assessed Sex Assigned at Date Recorded Not on file documented as of this encounter Plan of Treatment Not on filedocumented as of this encounter Visit Diagnoses Not on filedocumented in this encounter
--- OUTSIDE RECORDS SUMMARY | 2022-04-25 16:12 | XMS_ITS | Encounter Summary ---
:1975 Author Organization [facility] Address [address] [place] [address] Care Team Providers Name Role Phone Unavailable Primary Care Provider Unavailable Encounter Details Date Type Department Care Team Description 10/28/2008 Hospital Encounter HX NO MAPPING Provider, Historical Social History Tobacco Use Types Packs/Day Years Used Date Smoking Tobacco: Never Assessed Sex Assigned at Date Recorded Not on file documented as of this encounter Plan of Treatment Not on filedocumented as of this encounter Visit Diagnoses Not on filedocumented in this encounter
--- OUTSIDE RECORDS SUMMARY | 2022-04-25 16:12 | XMS_ITS | Encounter Summary ---
:1975 Author Organization [facility] Address [address] [place] [address] Care Team Providers Name Role Phone Unavailable Primary Care Provider Unavailable Encounter Details Date Type Department Care Team Description 01/20/2009 Hospital Encounter [facility] Provider, His torical Social History Tobacco Use Types Packs/Day Years Used Date Smoking Tobacco: Never Assessed Sex Assigned at Date Recorded Not on file documented as of this encounter Plan of Treatment Not on filedocumented as of this encounter Visit Diagnoses Not on filedocumented in this encounter
--- OUTSIDE RECORDS SUMMARY | 2022-04-25 16:12 | XMS_ITS | Encounter Summary ---
:1975 Author Organization [facility] Address [address] [place] [address] Care Team Providers Name Role Phone Unavailable Primary Care Provider Unavailable Encounter Details Date Type Department Care Team Description 07/03/2008 Hospital Encounter [facility] Provider, Renny avila Social History Tobacco Use Types Packs/Day Years Used Date Smoking Tobacco: Never Assessed Sex Assigned at Date Recorded Not on file documented as of this encounter Plan of Treatment Not on filedocumented as of this encounter Visit Diagnoses Not on filedocumented in this encounter
--- OUTSIDE RECORDS SUMMARY | 2022-04-25 16:12 | XMS_ITS | Encounter Summary ---
:1975 Author Organization [facility] Address [address] [place] [address] Care Team Providers Name Role Phone Unavailable Primary Care Provider Unavailable Encounter Details Date Type Department Care Team Description 04/15/2008 Hospital Encounter HX [facility] Provider, [facility] Social History Tobacco Use Types Packs/Day Years Used Date Smoking Tobacco: Never Assessed Sex Assigned at Date Recorded Not on file documented as of this encounter Progress Notes Love Medina RViktor - 04/15/2008 4:15 PM CDT [id number] Hue Medina is a 33 year old female. Patient received: FLUZONE INJECTION Patient Questionaire: I have a fever or feel ill today? No I have an allergy to eggs, gelatin or thimerosal? No I have had a reaction to the flu vaccine the past? No I have had Guillain-Anaheim syndrome? No VIS information given Source: [facility] Document Id: [id number] Electronically signed by Lay [facility]als[facility] Dry Cleaning Manager [id number] at 11/28/2016 4:45 AM CDT documented in this encounter Plan of Treatment Not on filedocumented as of this encounter Visit Diagnoses Not on filedocumented in this encounter
--- OUTSIDE RECORDS SUMMARY | 2022-04-25 16:12 | XMS_ITS | Encounter Summary ---
:1975 Author Organization [facility] Address [address] [place] [address] Care Team Providers Name Role Phone Unavailable Primary Care Provider Unavailable Encounter Details Date Type Department Care Team Description 08/04/2008 Hospital Encounter [facility] Marsha Garibay M.D. [address] [place], [place] [address] (Wo rk) Social History Tobacco Use Types Packs/Day Years Used Date Smoking Tobacco: Never Assessed Sex Assigned at Date Recorded Not on file documented as of this encounter Miscellaneous Notes Telephone Encounter - Marya Alvarez L.P.N. - 08/04/2008 12:00 AM CST [id number] Accepting this Rx will be faxed directly to pharmacy. Will you address this please? PCP is out of the office today. Source: [facility] Document Id: [id number] documented in this encounter Plan of Treatment Not on filedocumented as of this encounter Visit Diagnoses Not on filedocumented in this encounter
--- OUTSIDE RECORDS SUMMARY | 2022-04-25 16:12 | XMS_ITS | Encounter Summary ---
:1975 Author Organization [facility] Address [address] [place] [address] Care Team Providers Name Role Phone Unavailable Primary Care Provider Unavailable Encounter Details Date Type Department Care Team Description 05/29/2008 Hospital Encounter [facility] Provider, Renny avila Social History Tobacco Use Types Packs/Day Years Used Date Smoking Tobacco: Never Assessed Sex Assigned at Date Recorded Not on file documented as of this encounter Plan of Treatment Not on filedocumented as of this encounter Visit Diagnoses Not on filedocumented in this encounter
--- OUTSIDE RECORDS SUMMARY | 2022-04-25 16:12 | XMS_ITS | Encounter Summary ---
:1975 Author Organization [facility] Address [address] [place] [address] Care Team Providers Name Role Phone Unavailable Primary Care Provider Unavailable Encounter Details Date Type Department Care Team Description 04/01/2008 Hospital Encounter HX [facility] Marsha Garibay M.D. [address] [place], [place] [address] (Wo rk) Social History Tobacco Use Types Packs/Day Years Used Date Smoking Tobacco: Never Assessed Sex Assigned at Date Recorded Not on file documented as of this encounter Miscellaneous Notes Telephone Encounter - Love Medina R.N. - 04/01/2008 12:00 AM CDT [id number] Mom calls and requests call back. She would like to discuss referral to specialist. Source[facility] Document Id: [id number] Telephone Encounter - Sridhar Garibay M.D. - 04/01/2008 12:00 AM CDT [id number] Nurses- Please set her up for hematology consult at [facility]. She would like second opinion on the need for coumadin. Fabiola linares i believe or Monday might be better for her. Thanks. Source: [facility] Document Id: [id number] Telephone Encounter - Love Medina R.N. - 04/01/2008 12:00 AM CDT [id number] Will schedule own appointment Source: [facility] AYDEHXTRANSXRTFSYS Document Id: [id number] documented in this encounter Plan of Treatment Not on filedocumented as of this encounter Visit Diagnoses Not on filedocumented in this encounter
--- OUTSIDE RECORDS SUMMARY | 2022-04-25 16:12 | XMS_ITS | Encounter Summary ---
:[address] [facility] Address [address] [place] [address] Care Team Providers Name Role Phone Unavailable Primary Care Provider Unavailable Encounter Details Date Type Department Care Team Description 03/10/2009 Hospital Encounter [facility] ANT[facility]AG Provider, His torical Social History Tobacco Use Types Packs/Day Years Used Date Smoking Tobacco: Never Assessed Sex Assigned at Date Recorded Not on file documented as of this encounter Plan of Treatment Not on filedocumented as of this encounter Visit Diagnoses Not on filedocumented in this encounter
--- OUTSIDE RECORDS SUMMARY | 2022-04-25 16:12 | XMS_ITS | Encounter Summary ---
:1975 Author Organization [facility] Address [address] [place] [address] Care Team Providers Name Role Phone Unavailable Primary Care Provider Unavailable Encounter Details Date Type Department Care Team Description 09/30/2008 Hospital Encounter HX NO MAPPING Provider, Historical Social History Tobacco Use Types Packs/Day Years Used Date Smoking Tobacco: Never Assessed Sex Assigned at Date Recorded Not on file documented as of this encounter Plan of Treatment Not on filedocumented as of this encounter Visit Diagnoses Not on filedocumented in this encounter
--- OUTSIDE RECORDS SUMMARY | 2022-04-25 16:12 | XMS_ITS | Encounter Summary ---
:1975 Author Organization [facility] Address [address] [place] [address] Care Team Providers Name Role Phone Unavailable Primary Care Provider Unavailable Encounter Details Date Type Department Care Team Description 05/16/2008 Hospital Encounter [facility] Provider, [facility] Social History Tobacco Use Types Packs/Day Years Used Date Smoking Tobacco: Never Assessed Sex Assigned at Date Recorded Not on file documented as of this encounter Miscellaneous Notes Miscellaneous - Conversion, Historical Provider Ser - 05/16/2008 8:30 AM COMPLIANCE ENGINEER [id number] Hue Medina [address] [place] [address] May 16, 2008 Dear Ms. Hue Medina: Your Lab today was: INR 2.16 05/16/08 Your target range for your condition is: 2 - 3 You should: CONTINUE YOUR CURRENT DOSE Your Coumadin Tablet Strength should be: 5 mg Daily Dose: SUN:2.5mg MON:5mg TUE:2.5mg WED:2.5mg THUR:5mg FRI:2.5mg SAT:2.5mg Number of Pills to take each day: SUN:06/27 MON:1 TUE:2 WED:2 THUR:1 FRI:2 SAT:2 Your next lab appointment is scheduled for: 05/29/08 Main and [facility] labs must be drawn before 3 PM. [facility] and [facility] labs must be drawn before 12 NOON. If you have questions regarding any of the above information or feel the information is not accurateplease call [phone] or [phone]. [phone]. Thank you, Radha Candelaria RN [facility] staff: Eliana Farooq, RN; Antonia Mcclellan, RN; Radha Candelaria RN; Fina Peres RN; Ermelinda Casas, ANGELINE; Mima Campo, RN Source: [facility] Document Id: [id number] documented in this encounter Plan of Treatment Not on filedocumented as of this encounter Visit Diagnoses Not on filedocumented in this encounter
--- OUTSIDE RECORDS SUMMARY | 2022-04-25 16:12 | XMS_ITS | Encounter Summary ---
:1975 Author Organization [facility] Address [address] [place] [address] Care Team Providers Name Role Phone Unavailable Primary Care Provider Unavailable Encounter Details Date Type Department Care Team Description 05/20/2008 Hospital Encounter [facility]X [facility] XRAY Provider, Histori bro Social History Tobacco Use Types Packs/Day Years Used Date Smoking Tobacco: Never Assessed Sex Assigned at Date Recorded Not on file documented as of this encounter Progress Notes Emily Kim M.D. - 05/20/2008 3:30 PM CST [id number] Addended by: EMILY KIM on: 05/22/2008 11:18:04 AM Modules accepted: Orders Source: [facility] Document Id: [id number] documented in this encounter Miscellaneous Notes Miscellaneous - Emily Kim M.D. - 05/20/2008 3:30 PM CST [id number] Hue Bellamy Carol [address] [place] [address] May 22, 2008 Dear Hue: I am writing to inform you the results of the laboratory tests you had done during your recent visitto the clinic. The results of your recent lab(s) were: There was a small cyst in your left ovary. It was only 1/2 inch in size. It's nothing to worry about but I'd like to make sure it doesn't change in size over thenext few months. I would like to repeat the ultrasound in 3 months. You can call to set up the appointment in July. Thanks. It was a pleasure to see you in the clinic. If you have any further questions or problems, please contact our office at [phone]. Sincerely, Emily Kim MD, LAB TECHNICIAN Department [facility] Source: [facility] RWHXTRANSXRTFSYS Document Id: [id number] documented in this encounter Plan of Treatment Not on filedocumented as of this encounter Visit Diagnoses Not on filedocumented in this encounter
--- OUTSIDE RECORDS SUMMARY | 2022-04-25 16:12 | XMS_ITS | Encounter Summary ---
:1975 Author Organization [facility] Address [address] [place] [address] Care Team Providers Name Role Phone Unavailable Primary Care Provider Unavailable Encounter Details Date Type Department Care Team Description 04/17/2008 Hospital Encounter [facility] Provider, Renny avila Social History Tobacco Use Types Packs/Day Years Used Date Smoking Tobacco: Never Assessed Sex Assigned at Date Recorded Not on file documented as of this encounter Plan of Treatment Not on filedocumented as of this encounter Visit Diagnoses Not on filedocumented in this encounter
--- OUTSIDE RECORDS SUMMARY | 2022-04-25 16:12 | XMS_ITS | Encounter Summary ---
:1975 Author Organization [facility] Address [address] [place] [address] Care Team Providers Name Role Phone Unavailable Primary Care Provider Unavailable Encounter Details Date Type Department Care Team Description 08/29/2008 Hospital Encounter [facility] ANTICOAG Provider, His torical Social History Tobacco Use Types Packs/Day Years Used Date Smoking Tobacco: Never Assessed Sex Assigned at Date Recorded Not on file documented as of this encounter Miscellaneous Notes Miscellaneous - Fina Peres RViktor - 08/29/2008 12:20 PM CST [id number] Hue Medina [address] [place] [address] August 29, 2008 Dear Ms. Hue Medina: Your Lab today was: INR 2.74 08/29/08 Your target range for your condition is: 2 - 3 You should: CONTINUE YOUR CURRENT DOSE Your Coumadin Tablet Strength should be: 5 mg Daily Dose: SUN:2.5mg MON:5mg TUE:2.5mg WED:2.5mg THUR:5mg FRI:2.5mg SAT:2.5mg Number of Pills to take each day: SUN:06/27 MON:1 TUE:2 WED:06/27 THUR:1 FRI:2 SAT:2 Your next lab appointment is scheduled for: 09/25/08 Main and [facility] labs must be drawn before 3 PM. [facility] and [facility] labs must be drawn before 12 NOON. If you have questions regarding any of the above information or feel the information is not accurateplease call [phone] or [phone]. [phone]. Thank you, Fina Peres [facility] staff: Eliana Farooq, RN; Antonia Mcclellan, RN; Fina Peres, ANGELINE; Ermelinda Casas, RN; Mima Campo, RN Source: [facility] RWHXTRANSXRTFSYS Document Id: [id number] Electronically signed by Lay, [facility] Biostatistician [id number] at 11/27/2016 5:25 PM CDT documented in this encounter Plan of Treatment Not on filedocumented as of this encounter Visit Diagnoses Not on filedocumented in this encounter
--- OUTSIDE RECORDS SUMMARY | 2022-04-25 16:12 | XMS_ITS | Encounter Summary ---
:1975 Author Organization [facility] Address [address] [place] [address] Care Team Providers Name Role Phone Unavailable Primary Care Provider Unavailable Encounter Details Date Type Department Care Team Description 07/31/2008 Hospital Encounter [facility] Provider, Renny avila Social History Tobacco Use Types Packs/Day Years Used Date Smoking Tobacco: Never Assessed Sex Assigned at Date Recorded Not on file documented as of this encounter Plan of Treatment Not on filedocumented as of this encounter Visit Diagnoses Not on filedocumented in this encounter
--- OUTSIDE RECORDS SUMMARY | 2022-04-25 16:12 | XMS_ITS | Encounter Summary ---
:1975 Author Organization [facility] Address [address] [place] [address] Care Team Providers Name Role Phone Unavailable Primary Care Provider Unavailable Encounter Details Date Type Department Care Team Description 02/10/2009 Hospital Encounter [facility] ANTICOAG Provider, His torical Social History Tobacco Use Types Packs/Day Years Used Date Smoking Tobacco: Never Assessed Sex Assigned at Date Recorded Not on file documented as of this encounter Plan of Treatment Not on filedocumented as of this encounter Visit Diagnoses Not on filedocumented in this encounter
--- OUTSIDE RECORDS SUMMARY | 2022-04-25 16:12 | XMS_ITS | Encounter Summary ---
:1975 Author Organization [facility] Address [address] [place] [address] Care Team Providers Name Role Phone Unavailable Primary Care Provider Unavailable Encounter Details Date Type Department Care Team Description 12/05/2008 Hospital Encounter [facility]X [facility] INTERNMED Swetha Riley M.D. [address] [place], [place] [address] (Wo rk) Social History Tobacco Use Types Packs/Day Years Used Date Smoking Tobacco: Never Assessed Sex Assigned at Date Recorded Not on file documented as of this encounter Progress Notes Mabel Riley M.D. - 12/05/2008 11:00 AM CDT [id number] Hue Medina is a consult from Dr Rich regarding Protein S deficiency and hx DVT. She has had the protein S deficiency confirmed by checking free prtein s while off coumadin . Was checked offcoumadin twice. She does not have a really low protein s level, but it is mildy low. Her d dimer also remains elevated. Her DVt occurred when she was on oral contraceptive pills and she is now off of them. She is pretty active and is on her feet a lot. Also needs form filled out so she can particiate in [employer]-in swimming and in track and field. I advised her to avoid contact sports and hurles due to being on coumadin, but filled out forms. Past Medical History Diagnosis Date Down's Syndrome Ostium Secundum Type Atrial Septal Defect Mitral Valve Disorders cleft mitral valve Cellulitis and Abscess of Leg, except Foot 01/15/00 L lower leg Deep Phlebitis-Leg NEC 06/08/07 Past Surgical History Procedure Date general surg (abstracted) 01/15/00 I & D w debridement, L thigh and leg cellulitis/abscess SH-lives independently but her mother is with her a lot. Doesn't smoke or drink FH-maternal grandmother and aunt had blood clots. review of systems, except as noted in HP eyes:negative Ent:negative except hearing down from ear wax cardiovascular:negative respiratory:negative GI:negative :negative musculoskeletal:negative neurologic-negative skin:negative psychiatric:negative physical exam-pleasant, good historian. head & neck qqsd-hefj-kusuyfjyb cerumen., throat wnl, nose wnl, eyes wnl. neck-no thyroid abnormalities, no adenopathy, no carotid bruits.lungs-clear. heart-no murmurs, s3,s4, no jvd. extremities-has trace edema on left, none on right. She has stasis Dermatitis and spider veins. ASSESSMENT:1. Protein S deficiency, wp one episode dvt. The literature on this is conflicting. The risk of recurent clot after coumadin is discontinued is not as high as it is for lupus anticoagulant or antithrombin 3 deficiency, but is probably higher than for Factor 5 Leyden and prothrombin gene rearrangemnt. One guideline i read recommended life long coumaind in protein s patients who had had 2 ofmore episodes or who were at otherwise high frisk of recurrence. Since her d dimer is persistently elevated, her risk of recurrence is higher. I would recommend comtinuing coumaind indefinitlye. Carrieasks is she can not wear the compression stockings during the heat of summer and I said yes. If she uses them in winter might help to avoid worsening of stasis dermatitis. 2. Downs syndrome- cleared forspecial Olypics. 3. Ear wax-irrigated. Source: [facility] RWHXTRANSXRTFSYS Document Id: [id number] Electronically signed by Conversion, [facility] Automatic Print Developer [id number] at 11/27/2016 4:01 PM CDT documented in this encounter Plan of Treatment Not on filedocumented as of this encounter Visit Diagnoses Not on filedocumented in this encounter
--- OUTSIDE RECORDS SUMMARY | 2022-04-25 16:12 | XMS_ITS | Encounter Summary ---
:1975 Author Organization [facility] Address [address] [place] [address] Care Team Providers Name Role Phone Unavailable Primary Care Provider Unavailable Encounter Details Date Type Department Care Team Description 12/23/2008 Hospital Encounter [facility] Provider, His torical Social History Tobacco Use Types Packs/Day Years Used Date Smoking Tobacco: Never Assessed Sex Assigned at Date Recorded Not on file documented as of this encounter Plan of Treatment Not on filedocumented as of this encounter Visit Diagnoses Not on filedocumented in this encounter
--- OUTSIDE RECORDS SUMMARY | 2022-04-25 16:12 | XMS_ITS | Encounter Summary ---
:1975 Author Organization [facility] Address [address] [place] [address] Care Team Providers Name Role Phone Unavailable Primary Care Provider Unavailable Encounter Details Date Type Department Care Team Description 05/16/2008 Hospital Encounter [facility]PR[facility] Marsha Garibay M.D. [address] [place], [place] [address] (Wo rk) Social History Tobacco Use Types Packs/Day Years Used Date Smoking Tobacco: Never Assessed Sex Assigned at Date Recorded Not on file documented as of this encounter Progress Notes Sridhar Garibay M.D. - 05/16/2008 3:30 PM CST [id number] SUBJECTIVE: Hue Medina is a 33 year old female who presents complaining of fullness in bilateral ear(s).Feels as if sounds are muffled and hearing is decreased. There has been no pain or ear drainage. OBJECTIVE: bilateral ear(s) are occluded with cerumen. The canal are irrigated with good results, and thereafter are clear, with the exception of slight erythema and edema. The tympanic membrane(s) are benign in appeareance. ASSESSMENT: Ear canal cerumen impaction. PLAN: Follow-up if recurs, or as needed. She has fairly minimal edema of her legs today but did suggest she use her jobst. Source: [facility] BILOX[facility]XTRANSXRTFSYS Document Id: [id number] Electronically signed by Lay, [facility] Senior Windows Systems Engineer [id number] at 11/28/2016 1:34 AM CDT documented in this encounter Plan of Treatment Not on filedocumented as of this encounter Visit Diagnoses Not on filedocumented in this encounter
--- OUTSIDE RECORDS SUMMARY | 2022-04-25 16:12 | XMS_ITS | Encounter Summary ---
:[address] [facility] Address [address] [place] [address] Care Team Providers Name Role Phone Unavailable Primary Care Provider Unavailable Encounter Details Date Type Department Care Team Description 05/20/2008 Hospital Encounter HX NO MAPPING Luis Fernando Kim M.D. [address] [place], [place] [address] (Wo rk) Social History Tobacco Use Types Packs/Day Years Used Date Smoking Tobacco: Never Assessed Sex Assigned at Date Recorded Not on file documented as of this encounter Plan of Treatment Not on filedocumented as of this encounter Visit Diagnoses Not on filedocumented in this encounter
--- OUTSIDE RECORDS SUMMARY | 2022-04-25 16:12 | XMS_ITS | Encounter Summary ---
:1975 Author Organization [facility] Address [address] [place] [address] Care Team Providers Name Role Phone Unavailable Primary Care Provider Unavailable Encounter Details Date Type Department Care Team Description 04/30/2009 Hospital Encounter HX [facility] Marsha Garibay M.D. [address] [place], [place] [address] (Wo rk) Social History Tobacco Use Types Packs/Day Years Used Date Smoking Tobacco: Never Assessed Sex Assigned at Date Recorded Not on file documented as of this encounter Miscellaneous Notes Telephone Encounter - Conversion, Historical Provider Ser - 04/30/2009 12:00 AM CST [id number] Accepting this Rx will FAX it directly to the pharmacy. [facility] Document Id: [id number] Telephone Encounter - Radha Dickinson R.N. - 04/30/2009 12:00 AM CST [id number] Last visit: with PCP on 05/16/08 Last 1 Encounter BP Readings: Date BP 12/05/2008 100/58 Unable to approve medication per the RN refill protocol due to: - Medication not on refill protocol list Source[facility] Document Id: [id number] Electronically signed by Conversion, [facility] Fire Battalion Chief [id number] at 11/27/2016 6:55 PM CDT documented in this encounter Plan of Treatment Not on filedocumented as of this encounter Visit Diagnoses Not on filedocumented in this encounter
--- OUTSIDE RECORDS SUMMARY | 2022-04-25 16:12 | XMS_ITS | Encounter Summary ---
:1975 Author Organization [facility] Address [address] [place] [address] Care Team Providers Name Role Phone Unavailable Primary Care Provider Unavailable Encounter Details Date Type Department Care Team Description 04/07/2009 Hospital Encounter HX [facility] ANTICOAG Provider, His torical Social History Tobacco Use Types Packs/Day Years Used Date Smoking Tobacco: Never Assessed Sex Assigned at Date Recorded Not on file documented as of this encounter Plan of Treatment Not on filedocumented as of this encounter Visit Diagnoses Not on filedocumented in this encounter
--- OUTSIDE RECORDS SUMMARY | 2022-04-25 16:12 | XMS_ITS | Encounter Summary ---
:1975 Author Organization [facility] Address [address] [place] [address] Care Team Providers Name Role Phone Unavailable Primary Care Provider Unavailable Encounter Details Date Type Department Care Team Description 05/08/2008 Hospital Encounter HX [facility] ANTICOAG Provider, His torical Social History Tobacco Use Types Packs/Day Years Used Date Smoking Tobacco: Never Assessed Sex Assigned at Date Recorded Not on file documented as of this encounter Miscellaneous Notes Miscellaneous - Eliana Farooq R.N. - 05/08/2008 6:00 PM CST [id number] Hue Medina [address] [place] [address] May 08, 2008 Dear Ms. Hue Medina: Your Lab today was: INR 1.61 05/08/08 Your target range for your condition is: 2 - 3 You should: CHANGE YOUR COUMADIN DOSE Your Coumadin Tablet Strength should be: 5 mg Daily Dose: SUN:2.5mg MON:5mg TUE:2.5mg WED:2.5mg THUR:5mg FRI:2.5mg SAT:2.5mg Number of Pills to take each day: SUN:06/27 MON:1 TUE:2 WED:2 THUR:1 FRI:2 SAT:2 Your next lab appointment is scheduled for: 05/15/2008 [facility] and [facility] labs must be drawn before 3 PM. [facility] labs must be drawn before 12 NOON. If you have questions regarding any of the above information or feel the information is not accurateplease call [phone] or ext. [phone]. Thank you, Eliana Farooq, ANGELINE [facility] staff: Eliana Farooq RN; Antonia Mcclellan, ANGELINE; Radha Candelaria RN; Fina Peres, ANGELINE; Ermelinda Casas, ANGELINE; Mima Campo, RN Source: [facility] RWHXTRANSXRTFSYS Document Id: [id number] Electronically signed by Conversion, [facility] Groover And Striper Operator [id number] at 11/28/2016 1:34 AM CDT documented in this encounter Plan of Treatment Not on filedocumented as of this encounter Visit Diagnoses Not on filedocumented in this encounter
--- OUTSIDE RECORDS SUMMARY | 2022-04-25 16:13 | XMS_ITS | Encounter Summary ---
:1975 Author Organization [facility] Address [address] [place] [address] Care Team Providers Name Role Phone Unavailable Primary Care Provider Unavailable Encounter Details Date Type Department Care Team Description 07/06/2007 Hospital Encounter [facility] Provider, Renny avila Social History Tobacco Use Types Packs/Day Years Used Date Smoking Tobacco: Never Assessed Sex Assigned at Date Recorded Not on file documented as of this encounter Plan of Treatment Not on filedocumented as of this encounter Visit Diagnoses Not on filedocumented in this encounter
--- OUTSIDE RECORDS SUMMARY | 2022-04-25 16:13 | XMS_ITS | Encounter Summary ---
:1975 Author Organization [facility] Address [address] [place] [address] Care Team Providers Name Role Phone Unavailable Primary Care Provider Unavailable Encounter Details Date Type Department Care Team Description 03/20/2008 Hospital Encounter [facility] Provider, [facility] Social History Tobacco Use Types Packs/Day Years Used Date Smoking Tobacco: Never Assessed Sex Assigned at Date Recorded Not on file documented as of this encounter Miscellaneous Notes Miscellaneous - Mima Campo R.N. - 03/20/2008 8:30 AM CDT [id number] Hue Medina [address] [place] [address] March 20, 2008 Dear Ms. Hue Medina: Your Lab today was: INR 1.90 03/20/08 Your target range for your condition is: 2 - 3 You should: CONTINUE YOUR CURRENT DOSE Your Coumadin Tablet Strength should be: 5 mg Daily Dose: SUN:2.5mg MON:2.5mg TUE:2.5mg WED:2.5mg THUR:2.5mg FRI:2.5mg SAT:2.5mg Number of Pills to take each day: SUN:06/27 MON:12 TUE:12 WED:2 THUR:2 FRI:2 SAT:/2 Your next lab appointment is scheduled for: 04/03/08 [facility] and [facility] labs must be drawn before 3 PM. [facility] and [facility] labs must be drawn before 12 NOON. If you have questions regarding any of the above information or feel the information is not accurateplease call [phone] or [phone]. [phone]. Thank you, Mima Campo [facility] staff: Eliana Farooq, RN; Antonia Mcclellan, RN; Radha Candelaria RN; Fina Peres, RN; Ermelinda Casas, RN; Mima Campo, RN Source: [facility] Document Id: [id number] documented in this encounter Plan of Treatment Not on filedocumented as of this encounter Visit Diagnoses Not on filedocumented in this encounter
--- OUTSIDE RECORDS SUMMARY | 2022-04-25 16:13 | XMS_ITS | Encounter Summary ---
:1975 Author Organization [facility] Address [address] [place] [address] Care Team Providers Name Role Phone Unavailable Primary Care Provider Unavailable Encounter Details Date Type Department Care Team Description 09/20/[address] [facility] Provider, Renny avila Social History Tobacco Use Types Packs/Day Years Used Date Smoking Tobacco: Never Assessed Sex Assigned at Date Recorded Not on file documented as of this encounter Plan of Treatment Not on filedocumented as of this encounter Visit Diagnoses Not on filedocumented in this encounter
--- OUTSIDE RECORDS SUMMARY | 2022-04-25 16:13 | XMS_ITS | Encounter Summary ---
:1975 Author Organization [facility] Address [address] [place] [address] Care Team Providers Name Role Phone Unavailable Primary Care Provider Unavailable Encounter Details Date Type Department Care Team Description 06/29/2007 Hospital Encounter [facility] Provider, Renny avila Social History Tobacco Use Types Packs/Day Years Used Date Smoking Tobacco: Never Assessed Sex Assigned at Date Recorded Not on file documented as of this encounter Plan of Treatment Not on filedocumented as of this encounter Visit Diagnoses Not on filedocumented in this encounter
--- OUTSIDE RECORDS SUMMARY | 2022-04-25 16:13 | XMS_ITS | Encounter Summary ---
:1975 Author Organization [facility] Address [address] [place] [address] Care Team Providers Name Role Phone Unavailable Primary Care Provider Unavailable Encounter Details Date Type Department Care Team Description 01/28/2008 Hospital Encounter [facility] Marsha Garibay M.D. [address] [place], [place] [address] (Wo rk) Social History Tobacco Use Types Packs/Day Years Used Date Smoking Tobacco: Never Assessed Sex Assigned at Date Recorded Not on file documented as of this encounter Progress Notes Sridhar Garibay M.D. - 01/28/2008 3:10 PM CDT [id number] CLINIC ENCOUNTER SUBJECTIVE: Patient presents today for followup of DVT right leg. She has had no recurrent symptoms of edema, pain or other problems. She is due to recheck her protein-S and D-dimer off Coumadin, and the protein-S still is mildly low and D-dimer mildly elevated and, therefore, would recommend life-long Coumadin. The case was discussed with Dr. Anna Riley. PAST MEDICAL HISTORY/FAMILY HISTORY/SOCIAL HISTORY/MEDICATIONS/ALLERGIES: Reviewed. REVIEW OF SYSTEMS: General, eyes, ENT, neck, [...] murmurs, rubs or gallops. Abdomen: Soft, nontender, nondistended, no hepatosplenomegaly or other masses appreciated. There are positive bowel sounds. Extremities: No clubbing, cyanosis or edema. Neurologic Exam: Cranial nerves II-XII are grossly intact. Sensation and motor strength grossly intact throughout. Reflexes are 2+ and symmetric. ASSESSMENT: 1. DVT (deep venous thrombosis) right leg. 2. Protein-S deficiency. PLAN: With still mildly low protein-S and mildly elevated D-dimer that does put her at increased risk and we would recommend life-long Coumadin. I did offer her hematology consult if they would like for a second opinion, but at this point we will restart the Coumadin 5 milligrams daily and refer her to the INR clinic. Gabby Pérez/libia cc: [facility] Document Id: [id number] Sridhar Garibay M.D. - 01/28/2008 3:10 PM CDT [id number] This office note has been dictated. D/w results. More than 25 minutes was spent with the patient- more than half of which was spent in face to face consultation regarding the above diagnosis and treatment. Source: [facility] Document Id: [id number] documented in this encounter Plan of Treatment Not on filedocumented as of this encounter Visit Diagnoses Not on filedocumented in this encounter
--- OUTSIDE RECORDS SUMMARY | 2022-04-25 16:13 | XMS_ITS | Encounter Summary ---
:1975 Author Organization [facility] Address [address] [place] [address] Care Team Providers Name Role Phone Unavailable Primary Care Provider Unavailable Encounter Details Date Type Department Care Team Description 11/15/2007 Hospital Encounter [facility] Provider, Renny avila Social History Tobacco Use Types Packs/Day Years Used Date Smoking Tobacco: Never Assessed Sex Assigned at Date Recorded Not on file documented as of this encounter Plan of Treatment Not on filedocumented as of this encounter Visit Diagnoses Not on filedocumented in this encounter
--- OUTSIDE RECORDS SUMMARY | 2022-04-25 16:13 | XMS_ITS | Encounter Summary ---
:1975 Author Organization [facility] Address [address] [place] [address] Care Team Providers Name Role Phone Unavailable Primary Care Provider Unavailable Encounter Details Date Type Department Care Team Description 08/17/2007 Hospital Encounter [facility] Provider, Renny avila Social History Tobacco Use Types Packs/Day Years Used Date Smoking Tobacco: Never Assessed Sex Assigned at Date Recorded Not on file documented as of this encounter Plan of Treatment Not on filedocumented as of this encounter Visit Diagnoses Not on filedocumented in this encounter
--- OUTSIDE RECORDS SUMMARY | 2022-04-25 16:13 | XMS_ITS | Encounter Summary ---
:[address] [facility] Address [address] [place] [address] Care Team Providers Name Role Phone Unavailable Primary Care Provider Unavailable Encounter Details Date Type Department Care Team Description 11/26/2007 Hospital Encounter [facility] Marsha Garibay M.D. [address] [place], [place] [address] (Wo rk) Social History Tobacco Use Types Packs/Day Years Used Date Smoking Tobacco: Never Assessed Sex Assigned at Date Recorded Not on file documented as of this encounter Progress Notes Sridhar Garibay M.D. - 11/26/2007 3:10 PM CDT [id number] CLINIC ENCOUNTER Patient presents today for followup of deep venous thrombosis. She had hard vein in her leg. Ultrasound confirms superficial thrombophlebitis, as well for deep venous thrombosis. She was hospitalized and has been on Coumadin without any complications or problems in this regard. She has no complaints today. Denies any chest pain, shortness of breath, leg swelling, pain or other problems. She would like to discontinue her compression stockings. She denies any increasing edema, redness. She also wanted a refill of her triamcinolone cream, which apparently called her mother and she takes for her psoriasis. She also has had a little bit of difficulty hearing, and they think it is from wax, which is a common occurrence for her, and they would like an ear wash today if indicated. Denies any pain. PAST MEDICAL HISTORY/FAMILY HISTORY/SOCIAL HISTORY/MEDICATIONS/ALLERGIES: In the chart and are reviewed today. REVIEW OF SYSTEMS: General, eyes, ENT, neck, respiratory, cardiovascular, gastrointestinal, genitourinary, lymphatic, musculoskeletal, skin, neurologic-negative except for that stated above. OBJECTIVE: General: Patient alert and oriented, pleasant and cooperative with exam. No acute distress. Vitals: See nursing note. Head: Atraumatic, normocephalic. Eyes: Unremarkable. Discs are sharp bilaterally. Ears: Bilateral cerumen impaction. Tympanic membranes otherwise normal. Nose: Nares clear. Oropharynx: Clear. Neck: Supple without lymphadenopathy or thyromegaly. Lungs: Clear to auscultation bilaterally. Heart: Regular rate and rhythm, normal S1, S2 without murmurs, rubs or gallops. Abdomen: Soft, nontender, non-distended, no hepatosplenomegaly or other masses appreciated. There are positive bowel sounds. Extremities: The linear firm cord over the medial thigh just above the knee and down the medial jose in the saphenous vein region has resolved completely. She has a perfectly normal leg exam with no significant edema, tenderness. Negative Kayla's. There is no erythema, warmth. Neurologic Exam: Cranial nerves 2-12 are grossly intact. Sensation and motor strength grossly intact throughout. Reflexes are 2+ and symmetric. ASSESSMENT: 1. Deep venous thrombosis, right leg. 2. Bilateral cerumen impaction. PLAN: She may discontinue the Coumadin. I did recommend continued Jobst stockings as much as she can tolerate. She would like to discontinue this, however. She was on oral contraceptive pills, and this was stopped. Did review her labs, which were negative, except for slightly low free protein S, and Lab recommended this be repeated after she has been off of the Coumadin for a month, and she will stop in the Lab for this and we will send her a letter with the results. Hopefully this will be normal. Bilateral ear wash done today. Otherwise did refill her triamcinolone cream which her mother says she takes for psoriasis. Also called the mother and discussed all of this with her. Followup then as needed. Sridhar Garibay M.D. RDAAMES/[facility] cc: Source: [facility] RWHXTRANSXSYS Document Id: [id number] Sridhar Garibay M.D. - 11/26/2007 3:10 PM CDT [id number] This office note has been dictated. More than 25 minutes was spent with the patient- more than half of which was spent in face to face consultation regarding the above diagnosis and treatment. Source: [facility] RWHXTRANSXRTFSYS Document Id: [id number] documented in this encounter Plan of Treatment Not on filedocumented as of this encounter Visit Diagnoses Not on filedocumented in this encounter
--- OUTSIDE RECORDS SUMMARY | 2022-04-25 16:13 | XMS_ITS | Encounter Summary ---
:1975 Author Organization [facility] Address [address] [place] [address] Care Team Providers Name Role Phone Unavailable Primary Care Provider Unavailable Encounter Details Date Type Department Care Team Description 07/13/2007 Hospital Encounter HX [facility] Provider, Renny avila Social History Tobacco Use Types Packs/Day Years Used Date Smoking Tobacco: Never Assessed Sex Assigned at Date Recorded Not on file documented as of this encounter Plan of Treatment Not on filedocumented as of this encounter Visit Diagnoses Not on filedocumented in this encounter
--- OUTSIDE RECORDS SUMMARY | 2022-04-25 16:13 | XMS_ITS | Encounter Summary ---
:1975 Author Organization [facility] Address [address] [place] [address] Care Team Providers Name Role Phone Unavailable Primary Care Provider Unavailable Encounter Details Date Type Department Care Team Description 01/30/2008 Hospital Encounter [facility]X [facility] ANTICOAG Provider, His torical Social History Tobacco Use Types Packs/Day Years Used Date Smoking Tobacco: Never Assessed Sex Assigned at Date Recorded Not on file documented as of this encounter Plan of Treatment Not on filedocumented as of this encounter Visit Diagnoses Not on filedocumented in this encounter
--- OUTSIDE RECORDS SUMMARY | 2022-04-25 16:13 | XMS_ITS | Encounter Summary ---
:1975 Author Organization [facility] Address [address] [place] [address] Care Team Providers Name Role Phone Unavailable Primary Care Provider Unavailable Encounter Details Date Type Department Care Team Description 02/11/2008 Hospital Encounter [facility] Provider, Renny avila Social History Tobacco Use Types Packs/Day Years Used Date Smoking Tobacco: Never Assessed Sex Assigned at Date Recorded Not on file documented as of this encounter Plan of Treatment Not on filedocumented as of this encounter Visit Diagnoses Not on filedocumented in this encounter
--- OUTSIDE RECORDS SUMMARY | 2022-04-25 16:13 | XMS_ITS | Encounter Summary ---
:1975 Author Organization [facility] Address [address] [place] [address] Care Team Providers Name Role Phone Unavailable Primary Care Provider Unavailable Encounter Details Date Type Department Care Team Description 07/27/2007 Hospital Encounter [facility] Provider, [facility] Social History Tobacco Use Types Packs/Day Years Used Date Smoking Tobacco: Never Assessed Sex Assigned at Date Recorded Not on file documented as of this encounter Miscellaneous Notes Miscellaneous - Ermelinda Casas RViktor - 07/27/2007 8:00 AM CST [id number] Hue Medina [address] [place] [address] July 27, 2007 Dear Ms. Hue Medina: Your Lab today was: INR 2.44 07/27/2007 Your target range for your condition is: 2 - 3 You should: CONTINUE YOUR CURRENT DOSE Your Coumadin Tablet Strength should be: 5 mg Daily Dose: SUN:2.5mg MON:2.5mg TUE:2.5mg WED:2.5mg THUR:2.5mg FRI:2.5mg SAT:2.5mg Number of Pills to take each day: SUN:06/27 MON:12 TUE:12 WED:2 THUR:2 FRI:2 SAT:12 Your next [facility]: [facility] and [facility] labs must be drawn before 3 PM. [facility] and [facility] labs must be drawn before 12 NOON. If you have questions regarding any of the above information or feel the information is not accurateplease call [phone] or ext. [phone]. Thank you, Ermelinda Casas [facility] staff: Eliana Farooq, RN; Antonia Mcclellan, RN; Radha Candelaria RN; Fina Peres, RN; Ermelinda Casas, RN Source: [facility] Document Id: [id number] Electronically signed by Lay [facility] Fiberglass Insulation Installer [id number] at 11/28/2016 1:02 AM CDT documented in this encounter Plan of Treatment Not on filedocumented as of this encounter Visit Diagnoses Not on filedocumented in this encounter
--- OUTSIDE RECORDS SUMMARY | 2022-04-25 16:13 | XMS_ITS | Encounter Summary ---
:1975 Author Organization [facility] Address [address] [place] [address] Care Team Providers Name Role Phone Unavailable Primary Care Provider Unavailable Encounter Details Date Type Department Care Team Description 10/18/2007 [facility] Provider, Renny avila Social History Tobacco Use Types Packs/Day Years Used Date Smoking Tobacco: Never Assessed Sex Assigned at Date Recorded Not on file documented as of this encounter Plan of Treatment Not on filedocumented as of this encounter Visit Diagnoses Not on filedocumented in this encounter
--- OUTSIDE RECORDS SUMMARY | 2022-04-25 16:13 | XMS_ITS | Encounter Summary ---
:1975 Author Organization [facility] Address [address] [place] [address] Care Team Providers Name Role Phone Unavailable Primary Care Provider Unavailable Encounter Details Date Type Department Care Team Description 02/28/2008 Hospital Encounter HX [facility] Provider, [facility] Social History Tobacco Use Types Packs/Day Years Used Date Smoking Tobacco: Never Assessed Sex Assigned at Date Recorded Not on file documented as of this encounter Miscellaneous Notes Miscellaneous - Eliana Farooq R.N. - 02/28/2008 8:15 AM CDT [id number] Hue Medina [address] [place] [address] February 28, 2008 Dear Ms. Hue Medina: Your Lab today was: INR 2.42 02/28/08 Your target range for your condition is: 2 - 3 You should: CONTINUE YOUR CURRENT DOSE Your Coumadin Tablet Strength should be: 5 mg Daily Dose: SUN:2.5mg MON:2.5mg TUE:2.5mg WED:2.5mg THUR:2.5mg FRI:2.5mg SAT:2.5mg Number of Pills to take each day: SUN:06/27 MON:12 TUE:12 WED:2 THUR:2 FRI:2 SAT:2 Your next lab appointment is scheduled for: 03/20/2008 [facility] and [facility] labs must be drawn before 3 PM. [facility] labs must be drawn before 12 NOON. If you have questions regarding any of the above information or feel the information is not accurateplease call [phone] or ext. [phone]. Thank you, Eliana Farooq RN [facility] staff: Eliana Farooq RN; Antonia Mcclellan, ANGELINE; Radha Candelaria RN; Fina Peres, ANGELINE; Ermelinda Casas, ANGELINE; Mima Campo, RN Source: [facility] RWHXTRANSXRTFSYS Document Id: [id number] Electronically signed by Lay [facility] Quality Assurance Test Program Manager [id number] at 11/27/2016 10:22 PM CDT documented in this encounter Plan of Treatment Not on filedocumented as of this encounter Visit Diagnoses Not on filedocumented in this encounter
--- OUTSIDE RECORDS SUMMARY | 2022-04-25 16:13 | XMS_ITS | Encounter Summary ---
:1975 Author Organization [facility] Address [address] [place] [address] Care Team Providers Name Role Phone Unavailable Primary Care Provider Unavailable Encounter Details Date Type Department Care Team Description 11/26/2007 Hospital Encounter [facility] Provider, Renny avila Social History Tobacco Use Types Packs/Day Years Used Date Smoking Tobacco: Never Assessed Sex Assigned at Date Recorded Not on file documented as of this encounter Plan of Treatment Not on filedocumented as of this encounter Visit Diagnoses Not on filedocumented in this encounter
--- OUTSIDE RECORDS SUMMARY | 2022-04-25 16:13 | XMS_ITS | Encounter Summary ---
:1975 Author Organization [facility] Address [address] [place] [address] Care Team Providers Name Role Phone Unavailable Primary Care Provider Unavailable Encounter Details Date Type Department Care Team Description 06/25/2007 Hospital Encounter [facility] Provider, Renny avila Social History Tobacco Use Types Packs/Day Years Used Date Smoking Tobacco: Never Assessed Sex Assigned at Date Recorded Not on file documented as of this encounter Plan of Treatment Not on filedocumented as of this encounter Visit Diagnoses Not on filedocumented in this encounter
--- OUTSIDE RECORDS SUMMARY | 2022-04-25 16:13 | XMS_ITS | Encounter Summary ---
:1975 Author Organization [facility] Address [address] [place] [address] Care Team Providers Name Role Phone Unavailable Primary Care Provider Unavailable Encounter Details Date Type Department Care Team Description 02/05/2008 Hospital Encounter HX [facility] Provider, Renny avila Social History Tobacco Use Types Packs/Day Years Used Date Smoking Tobacco: Never Assessed Sex Assigned at Date Recorded Not on file documented as of this encounter Plan of Treatment Not on filedocumented as of this encounter Visit Diagnoses Not on filedocumented in this encounter
--- OUTSIDE RECORDS SUMMARY | 2022-04-25 16:13 | XMS_ITS | Encounter Summary ---
:1975 Author Organization [facility] Address [address] [place] [address] Care Team Providers Name Role Phone Unavailable Primary Care Provider Unavailable Encounter Details Date Type Department Care Team Description 11/27/2007 Hospital Encounter HX [facility] Fina Harris, RMichaelN. [address] [place] [id number] Social History Tobacco Use Types Packs/Day Years Used Date Smoking Tobacco: Never Assessed Sex Assigned at Date Recorded Not on file documented as of this encounter Plan of Treatment Not on filedocumented as of this encounter Visit Diagnoses Not on filedocumented in this encounter
--- OUTSIDE RECORDS SUMMARY | 2022-04-25 16:13 | XMS_ITS | Encounter Summary ---
:1975 Author Organization [facility] Address [address] [place] [address] Care Team Providers Name Role Phone Unavailable Primary Care Provider Unavailable Encounter Details Date Type Department Care Team Description 02/14/2008 Hospital Encounter [facility] Provider, [facility] Social History Tobacco Use Types Packs/Day Years Used Date Smoking Tobacco: Never Assessed Sex Assigned at Date Recorded Not on file documented as of this encounter Miscellaneous Notes Miscellaneous - Eliana Farooq R.N. - 02/14/2008 8:15 AM CDT [id number] Hue Medina [address] [place] [address] February 14, 2008 Dear Ms. Hue Medina: Your Lab today was: INR 1.86 02/14/08 Your target range for your condition is: 2 - 3 You should: CONTINUE YOUR CURRENT DOSE Your Coumadin Tablet Strength should be: 5 mg Daily Dose: SUN:2.5mg MON:2.5mg TUE:2.5mg WED:2.5mg THUR:2.5mg FRI:2.5mg SAT:2.5mg Number of Pills to take each day: SUN:06/27 MON:12 TUE:12 WED:2 THUR:2 FRI:2 SAT:/2 Your next lab appointment is scheduled for: 02/21/2008 [facility] labs must be drawn before 3 PM. [facility] labs must be drawn before 12 NOON. If you have questions regarding any of the above information or feel the information is not accurateplease call [phone] or ext. [phone]. Thank you, Eliana Farooq RN [facility] staff: Eliana Farooq RN; Antonia Mcclellan, ANGELINE; Radha Candelaria RN; Fina Peres, ANGELINE; Ermelinda Casas, ANGELINE; Mima Campo, RN Source: [facility] RWHXTRANSXRTFSYS Document Id: [id number] Electronically signed by Lay [facility] Divisions[facility] Curam Developer [id number] at 11/27/2016 10:57 PM CDT documented in this encounter Plan of Treatment Not on filedocumented as of this encounter Visit Diagnoses Not on filedocumented in this encounter
--- OUTSIDE RECORDS SUMMARY | 2022-04-25 16:13 | XMS_ITS | Encounter Summary ---
:1975 Author Organization [facility] Address [address] [place] [address] Care Team Providers Name Role Phone Unavailable Primary Care Provider Unavailable Encounter Details Date Type Department Care Team Description 02/01/2008 Hospital Encounter [facility]X [facility] Provider, Renny avila Social History Tobacco Use Types Packs/Day Years Used Date Smoking Tobacco: Never Assessed Sex Assigned at Date Recorded Not on file documented as of this encounter Plan of Treatment Not on filedocumented as of this encounter Visit Diagnoses Not on filedocumented in this encounter
--- OUTSIDE RECORDS SUMMARY | 2022-04-25 16:13 | XMS_ITS | Encounter Summary ---
:1975 Author Organization [facility] Address [address] [place] [address] Care Team Providers Name Role Phone Unavailable Primary Care Provider Unavailable Encounter Details Date Type Department Care Team Description 02/08/2008 Hospital Encounter HX [facility] Provider, [facility] Social History Tobacco Use Types Packs/Day Years Used Date Smoking Tobacco: Never Assessed Sex Assigned at Date Recorded Not on file documented as of this encounter Miscellaneous Notes Miscellaneous - Eliana Farooq R.N. - 02/08/2008 8:15 AM CDT [id number] Hue Medina [address] [place] [address] February 08, 2008 Dear Ms. Hue Medina: Your Lab today was: INR 4.84 02/08/08 Your target range for your condition is: 2 - 3 You should: HOLD Coumadin until INR Calls you after INR Blood draw on 02/11/2008 Your next lab appointment is scheduled for: 02/11/2008 [facility] and [facility] labs must be drawn before 3 PM. [facility] and [facility] labs must be drawn before 12 NOON. If you have questions regarding any of the above information or feel the information is not accurateplease call [phone] or ext. [phone]. Thank you, Eliana Farooq RN [facility] staff: Eliana Farooq RN; Antonia Mcclellan, ANGELINE; Radha Candelaria RN; Fina Peres RN; Ermelinda Casas RN; Mima Campo RN Source: [facility] Document Id: [id number] Electronically signed by Conversion, [facility] Psych[facility] Centersylvia Cook Mess [id number] at 11/27/2016 10:57 PM CDT documented in this encounter Plan of Treatment Not on filedocumented as of this encounter Visit Diagnoses Not on filedocumented in this encounter
--- OUTSIDE RECORDS SUMMARY | 2022-04-25 16:13 | XMS_ITS | Encounter Summary ---
:1975 Author Organization [facility] Address [address] [place] [address] Care Team Providers Name Role Phone Unavailable Primary Care Provider Unavailable Encounter Details Date Type Department Care Team Description 07/19/2007 Hospital Encounter [facility] Provider, Renny avila Social History Tobacco Use Types Packs/Day Years Used Date Smoking Tobacco: Never Assessed Sex Assigned at Date Recorded Not on file documented as of this encounter Plan of Treatment Not on filedocumented as of this encounter Visit Diagnoses Not on filedocumented in this encounter
--- OUTSIDE RECORDS SUMMARY | 2022-04-25 16:13 | XMS_ITS | Encounter Summary ---
:1975 Author Organization [facility] Address [address] [place] [address] Care Team Providers Name Role Phone Unavailable Primary Care Provider Unavailable Encounter Details Date Type Department Care Team Description 02/21/2008 Hospital Encounter [facility]X [facility] Provider, Renny avila Social History Tobacco Use Types Packs/Day Years Used Date Smoking Tobacco: Never Assessed Sex Assigned at Date Recorded Not on file documented as of this encounter Plan of Treatment Not on filedocumented as of this encounter Visit Diagnoses Not on filedocumented in this encounter
--- OUTSIDE RECORDS SUMMARY | 2022-04-25 16:13 | XMS_ITS | Encounter Summary ---
:1975 Author Organization [facility] Address [address] [place] [address] Care Team Providers Name Role Phone Unavailable Primary Care Provider Unavailable Encounter Details Date Type Department Care Team Description 08/10/2007 Hospital Encounter HX [facility] Provider, Renny avila Social History Tobacco Use Types Packs/Day Years Used Date Smoking Tobacco: Never Assessed Sex Assigned at Date Recorded Not on file documented as of this encounter Plan of Treatment Not on filedocumented as of this encounter Visit Diagnoses Not on filedocumented in this encounter
--- OUTSIDE RECORDS SUMMARY | 2022-04-25 16:13 | XMS_ITS | Encounter Summary ---
:1975 Author Organization [facility] Address [address] [place] [address] Care Team Providers Name Role Phone Unavailable Primary Care Provider Unavailable Encounter Details Date Type Department Care Team Description 08/31/2007 Hospital Encounter [facility] Provider, [facility] Social History Tobacco Use Types Packs/Day Years Used Date Smoking Tobacco: Never Assessed Sex Assigned at Date Recorded Not on file documented as of this encounter Miscellaneous Notes Miscellaneous - Ermelinda Casas RMichaelNMichael - 08/31/2007 8:45 AM CST [id number] Hue Medina [address] [place] [address] August 31, 2007 Dear Ms. Hue Medina: Your Lab today was: INR 2.29 08/31/2007 Your target range for your condition is: 2 - 3 You should: CONTINUE YOUR CURRENT DOSE Your Coumadin Tablet Strength should be: 5 mg Daily Dose: SUN:2.5mg MON:2.5mg TUE:2.5mg WED:2.5mg THUR:2.5mg FRI:5mg SAT:2.5mg Number of Pills to take each day: SUN:2 MON:12 TUE:12 WED:2 THUR:2 FRI:1 SAT:2 Your next lab appointment is scheduled for: 09/21/07. [facility] labs must be drawn before 3 PM. [facility] and [facility] labs must be drawn before 12 NOON. If you have questions regarding any of the above information or feel the information is not accurateplease call [phone] or ext. [phone]. Thank you, Ermelinda Casas [facility] Clinic staff: Eliana Farooq, RN; Antonia Mcclellan, RN; Radha Candelaria RN; Fina Peres, RN; Ermelinda Casas, RN Source: [facility] RWHXTRANSXRTFSYS Document Id: [id number] documented in this encounter Plan of Treatment Not on filedocumented as of this encounter Visit Diagnoses Not on filedocumented in this encounter
--- OUTSIDE RECORDS SUMMARY | 2022-04-25 16:13 | XMS_ITS | Encounter Summary ---
:1975 Author Organization [facility] Address [address] [place] [address] Care Team Providers Name Role Phone Unavailable Primary Care Provider Unavailable Encounter Details Date Type Department Care Team Description 01/03/2008 Hospital Encounter HX [facility] Marsha Garibay M.D. [address] [place], [place] [address] (Wo rk) Social History Tobacco Use Types Packs/Day Years Used Date Smoking Tobacco: Never Assessed Sex Assigned at Date Recorded Not on file documented as of this encounter Miscellaneous Notes Telephone Encounter - Sridhar Garibay M.D. - 01/03/2008 12:00 AM CDT [id number] Called mom with result. Still has mildy low protein s off coumadin. In her case i would not recommend lifelong coumadin unless her ddimer were elevated which would put her at increased risk. She will stop back to lab in 1 month and check protein s again (could be normal after a little longer off coumadin) and d- dimer. Source: [facility] Document Id: [id number] Electronically signed by Conversion, [facility] Credit Or Loans Officer [id number] at 11/28/2016 4:16 AM CDT documented in this encounter Plan of Treatment Not on filedocumented as of this encounter Visit Diagnoses Not on filedocumented in this encounter
--- OUTSIDE RECORDS SUMMARY | 2022-04-25 16:13 | XMS_ITS | Encounter Summary ---
:1975 Author Organization [facility] Address [address] [place] [address] Care Team Providers Name Role Phone Unavailable Primary Care Provider Unavailable Encounter Details Date Type Department Care Team Description 11/15/2007 Hospital Encounter HX [facility] Marsha Garibay M.D. [address] [place], [place] [address] (Wo rk) Social History Tobacco Use Types Packs/Day Years Used Date Smoking Tobacco: Never Assessed Sex Assigned at Date Recorded Not on file documented as of this encounter Miscellaneous Notes Telephone Encounter - Conversion, Historical Provider Ser - 11/15/2007 12:00 AM CDT [id number] Accepting this Rx will FAX it directly to the pharmacy. Source: [facility] Document Id: [id number] documented in this encounter Plan of Treatment Not on filedocumented as of this encounter Visit Diagnoses Not on filedocumented in this encounter
--- OUTSIDE RECORDS SUMMARY | 2022-04-25 16:13 | XMS_ITS | Encounter Summary ---
:1975 Author Organization [facility] Address [address] [place] [address] Care Team Providers Name Role Phone Unavailable Primary Care Provider Unavailable Encounter Details Date Type Department Care Team Description 12/24/2007 Hospital Encounter H[facility] Provider, [facility] Social History Tobacco Use Types Packs/Day Years Used Date Smoking Tobacco: Never Assessed Sex Assigned at Date Recorded Not on file documented as of this encounter Progress Notes Sridhar Garibay M.D. - 12/24/2007 3:45 PM CDT [id number] Quick Note: Called mom with result. Still has mildy low protein s off coumadin. In her case i would not recommend lifelong coumadin unless her ddimer were elevated which would put her at increased risk. She will stop back to lab in 1 month and check protein s again (could be normal after a little longer off coumadin) and d- dimer. Source: [facility] Document Id: [id number] Electronically signed by Lay, [facility] Structural Analysis Engineer [id number] at 11/28/2016 3:36 AM CDT documented in this encounter Plan of Treatment Not on filedocumented as of this encounter Visit Diagnoses Not on filedocumented in this encounter
--- OUTSIDE RECORDS SUMMARY | 2022-04-25 16:14 | XMS_ITS | Encounter Summary ---
:1975 Author Organization [facility] Address [address] [place] [address] Care Team Providers Name Role Phone Unavailable Primary Care Provider Unavailable Encounter Details Date Type Department Care Team Description 04/12/2006 Hospital Encounter HX [facility] Provider, [place] Social History Tobacco Use Types Packs/Day Years Used Date Smoking Tobacco: Never Assessed Sex Assigned at Date Recorded Not on file documented as of this encounter Progress Notes Marya Alvarez, L.P.N. - 04/12/2006 3:15 PM CDT [id number] Influenza injection. Reports no egg allergy and no reaction from injection in past. Source: [facility] Document Id: [id number] Electronically signed by Lay [facility] Senior Accounting Manager [id number] at 11/28/2016 5:56 PM CDT documented in this encounter Plan of Treatment Not on filedocumented as of this encounter Visit Diagnoses Not on filedocumented in this encounter
--- OUTSIDE RECORDS SUMMARY | 2022-04-25 16:14 | XMS_ITS | Encounter Summary ---
:1975 Author Organization [facility] Address [address] [place] [address] Care Team Providers Name Role Phone Unavailable Primary Care Provider Unavailable Encounter Details Date Type Department Care Team Description 06/15/2007 Hospital Encounter [facility] Marsha Garibay M.D. [address] [place], [place] [address] (Wo rk) Social History Tobacco Use Types Packs/Day Years Used Date Smoking Tobacco: Never Assessed Sex Assigned at Date Recorded Not on file documented as of this encounter Progress Notes Sridhar Garibay M.D. - 06/15/2007 10:50 AM CST [id number] CLINIC ENCOUNTER Patient presents today for follow up after DVT. She had a hard vein in her leg. Ultrasound confirmed superficial thrombophlebitis as well as DVT. She was hospitalized and has been on Coumadin. She has no complaints today and has been feeling well. Denies any increasing edema, redness, chest pain or shortness of breath. PAST MEDICAL HISTORY/FAMILY HISTORY/SOCIAL HISTORY/MEDICATIONS/ALLERGIES: In the [...] There are positive bowel sounds. Extremities - Does have linear firm cord over the medial thigh just above the knee, down the medial jose in the saphenous vein region. There is no erythema or warmth. Neurologic Exam: Cranial nerves 2-12 are grossly intact. Sensation and motor strength grossly intact throughout. Reflexes are 2+ and symmetric. ASSESSMENT: DVT right leg. 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 She was on oral contraceptive pills and this was stopped. She may return to work after [place]. She is staying with her parents. Did review her labs, which were negative except for a slightly low free protein S and lab recommended this be repeated after she has been off the Coumadin for a month. Otherwise she will follow up in 6 months. Gabby Pérez/yarelis cc: Source: [facility] Document Id: [id number] Sridhar Garibay M.D. - 06/15/2007 10:50 AM CST [id number] This office note has been dictated. More than 25 minutes was spent with the patient- more than half of which was spent in face to face consultation regarding dvt diagnosis and treatment. Source: [facility] Document Id: [id number] documented in this encounter Plan of Treatment Not on filedocumented as of this encounter Visit Diagnoses Not on filedocumented in this encounter
--- OUTSIDE RECORDS SUMMARY | 2022-04-25 16:14 | XMS_ITS | Encounter Summary ---
:1975 Author Organization [facility] Address [address] [place] [address] Care Team Providers Name Role Phone Unavailable Primary Care Provider Unavailable Encounter Details Date Type Department Care Team Description 2007 Hospital Encounter HX [facility] Provider, [place] Social History Tobacco Use Types Packs/Day Years Used Date Smoking Tobacco: Never Assessed Sex Assigned at Date Recorded Not on file documented as of this encounter Progress Notes Conversion, Historical Provider Ser - 2007 3:30 PM CDT [id number] SUBJECTIVE: Hue Medina is a 32 year old female who complains of runny nose, mild sore throat, dry cough,chest congestion, chest tightness, shortness of breath hoarseness and fatigue for 2 weeks. She denies a history of seasonal allergies and denies a history of asthma. Patient does not smoke cigarettes. Was on vacation in [facility] and developed illness there. OBJECTIVE: BP 114/74 Pulse 96 Temp (Src) 98.7 (Tympanic) Wt 159 lbs 11.2 oz (72.4kg) LMP 01/01/2007 mild distress Eyes:normal lids, pupils, irises and conjunctiva ENT:bilateral TM normal without fluid or infection, neck without nodes, throat normal without erythema or exudate and nasal mucosa congested Lungs:expiratory wheezes. Cardiovascular:NORMAL - regular rate and rhythm without murmur. ASSESSMENT: Encounter Diagnoses Code Name Primary? Qualifier 490 BRONCHITIS NOS Yes PLAN: Medications per EPIC orders Orders Placed This Encounter Procedure Zithromax tri-rossana 500 mg or tabs Symptomatic therapy suggested: push fluids, rest, gargle warm salt water, use vaporizer or mist needed and use acetaminophen, ibuprofen, decongestant of choice, cough suppressant of choice as needed. Call or return to clinic prn if these symptoms worsen or fail to improve as anticipated. Source: [facility] Document Id: [id number] documented in this encounter Miscellaneous Notes Miscellaneous - Conversion, Historical Provider Ser - 2007 3:30 PM CDT [id number] 2007 Hue Medina [address] [place] [address] (home) : 1975 To Whom it May Concern: Ms. Hue Medina missed work on 12/29/2006 to 2007 due to bronchitis. She was seen in our clinic today (2007). Please contact me for questions or concerns. Sincerely, Marry Lyn RN, [facility] Source: [facility] Document Id: [id number] documented in this encounter Plan of Treatment Not on filedocumented as of this encounter Visit Diagnoses Not on filedocumented in this encounter
--- OUTSIDE RECORDS SUMMARY | 2022-04-25 16:14 | XMS_ITS | Encounter Summary ---
:1975 Author Organization [facility] Address [address] [place] [address] Care Team Providers Name Role Phone Unavailable Primary Care Provider Unavailable Encounter Details Date Type Department Care Team Description 07/11/2006 Hospital Encounter HX [facility] Carli Acuna M.D. [address] [place], [place] [phone] (Wo rk) Social History Tobacco Use Types Packs/Day Years Used Date Smoking Tobacco: Never Assessed Sex Assigned at Date Recorded Not on file documented as of this encounter Progress Notes Steven Porter M.D. - 07/11/2006 9:30 AM CST [id number] CLINIC ENCOUNTER CONFRONTATION VISUAL MCCLOUD: Intact. MOTILITY: Full. PUPILS: No afferent defect. EXTERNAL: Unremarkable. SLIT LAMP EXAMINATION: There is a generous tear film both eyes. There are no misdirected lashes and no evidence of blepharitis. Conjunctivae are quiet without papillary changes. There are no follicles. Corneas clear. Chambers deep and quiet. Irises normal. Lenses clear. FUNDUS: (Dilated) Normal maculae, disks, vessels and periphery. Structurally, the eyes appear quite healthy and normal. IMPRESSION: 1. Mild refractive error. 2. Visual acuity. This is probably the visual acuity she has always had with some element of amblyopia of the left eye. She has had no subjective complaints of changed vision over time. 3. History suggesting mild allergic conjunctivitis as a source of epiphora. PLAN: 1. The patient was reassured regarding eyes. 2. Trial Patanol one both eyes b.i.d. 3. Recheck in one year. Steven Porter M.D. Kiera cc: Source: [facility] Document Id: [id number] Electronically signed by Conversion, [facility] Model And Pattern Supervisor [id number] at 11/28/2016 8:03 AM CDT Conversion, Historical Provider Ser - 07/11/2006 9:30 AM CST [id number] Hue Medina is a 31 year old female who presents for Annual eye exam History of Present Illness: Patient states Pt reports vision to be good, however eye water a lot andwill make vision blurry. Pt states she is allergic to some kind of eye drop, does not know what kind. 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 CELLULITIS OF LEG 01/15/00 L lower leg PAST SURGICAL HISTORY: Past Surgical History Procedure Date general surg (abstracted) 01/15/00 I & D w debridement, L thigh and leg cellulitis/abscess MEDICATIONS: Current outpatient prescriptions Medication Sig MIRCETTE 0.15-0.02/0.01 MG (13/11) OR TABS 1 TABLET DAILY VISINE 0.05 % OP SOLN None Entered LOPERAMIDE HCL 2 MG OR CAPS 1 CAPSULE TWICE DAILY NEEDED SM EAR DROPS 6.5 % OT SOLN as directed, 3 drops each ear twice weekly ALLERGIES: Quinolones, Bees and Chloramphenicol History Substance Use Topics Tobacco Use: Never Alcohol Use: Yes special occasion Pt does not drive motor vehicle. Family History Problem Relation Cancer Maternal Aunt breast Thyroid Maternal Aunt several maternal aunts Anesthesia No family hx of Blood Disease No family hx of Neurological No family hx of REVIEW OF SYSTEMS: General: negative Skin: negative Eyes: as above Ears/Nose/Mouth/Throat: negative Respiratory: negative Cardiovascular: negative Gastrointestinal: negative Genitourinary: negative Musculoskeletal: negative Neurologic: DOwn's Psychiatric: negative Hematologic/Lymphatic/Immunologic: negative Endocrine: negative Source: [facility] Document Id: [id number] documented in this encounter Plan of Treatment Not on filedocumented as of this encounter Visit Diagnoses Not on filedocumented in this encounter
--- OUTSIDE RECORDS SUMMARY | 2022-04-25 16:14 | XMS_ITS | Encounter Summary ---
:1975 Author Organization [facility] Address [address] [place] [address] Care Team Providers Name Role Phone Unavailable Primary Care Provider Unavailable Encounter Details Date Type Department Care Team Description 06/11/2007 Hospital Encounter HX [facility] Provider, His torical Social History Tobacco Use Types Packs/Day Years Used Date Smoking Tobacco: Never Assessed Sex Assigned at Date Recorded Not on file documented as of this encounter Plan of Treatment Not on filedocumented as of this encounter Visit Diagnoses Not on filedocumented in this encounter
--- OUTSIDE RECORDS SUMMARY | 2022-04-25 16:14 | XMS_ITS | Encounter Summary ---
:1975 Author Organization [facility] Address [address] [place] [address] Care Team Providers Name Role Phone Unavailable Primary Care Provider Unavailable Encounter Details Date Type Department Care Team Description 04/03/2006 Hospital Encounter [facility]X [facility] OBGYN Kalyn Kim M.D. [address] [place] [phone] (Wo rk) Social History Tobacco Use Types Packs/Day Years Used Date Smoking Tobacco: Never Assessed Sex Assigned at Date Recorded Not on file documented as of this encounter Progress Notes Marie Kim M.D. - 04/03/2006 9:00 AM CDT [id number] Hue is a 31 year old here for her annual exam. Obstetric History T0 P0 TAB0 SAB0 E0 M0 L0 using none(never sexaully active) for contraception. Radiology Aide HX: no abnormal paps. Her menses are regular on OCps, no sig cramps, not heavy, no bleeding between cycles HPI: On OCPs for dysmenorrhea. 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 CELLULITIS OF LEG 01/15/00 L lower leg PAST SURGICAL HISTORY: Past Surgical History Procedure Date general surg (abstracted) 01/15/00 I & D w debridement, L thigh and leg cellulitis/abscess CURRENT MEDICATIONS: Current outpatient prescriptions Medication Sig MIRCETTE 0.15-0.02/0.01 MG (13/11) OR TABS 1 TABLET DAILY VISINE 0.05 % OP SOLN None Entered LOPERAMIDE HCL 2 MG OR CAPS 1 CAPSULE TWICE DAILY NEEDED SM EAR DROPS 6.5 % OT SOLN as directed, 3 drops each ear twice weekly ALLERGIES: Quinolones, Bees and Chloramphenicol FAMILY HX: Family History Problem Relation Cancer Maternal Aunt breast Thyroid Maternal Aunt several maternal aunts Anesthesia No family hx of Blood Disease No family hx of Neurological No family hx of ROS: REVIEW OF SYSTEMS: NEUROLOGIC: Negative EYES: Negative ENT: complains of cerumen in ears, irritating. GI: Negative, diarrhea started 3 days ago, better now, has some stomach pains now BREAST: Negative : Negative TURKEY PICKER: Negative CV: Negative PULMONARY: Negative MUSCULOSKELETAL: Negative PSYCH: Negative SOCIAL HISTORY: History Social History Marital Status: Single Spouse Name: N/A Number of Children: 0 Years of Education: N/A Occupational History Not on file. Social History Main Topics Tobacco Use: Never Alcohol Use: Yes special occasion Drug Use: No Sexually Active: Yes -- Male partner(s) Control/ Protection: Pill Other Topics Concern Blood Transfusions No Sleep Concern No Stress Concern No Weight Concern No Exercise Yes Seat Belt Yes Self Exams No Social History Narrative No narrative on file PHYSICAL EXAM: This is a well-developed, well-nourished female in no apparent distress. ENT: ENT exam normal, no neck nodes or sinus tenderness. Has cerumen impacted bilaterally NECK: Supple, no adenopathy and thyroid normal. LUNGS: Normal - CTA without rales, rhonchi, or wheezing.. HEART: Regular rate, rhythm and Grade II mid systolic murmur at upper left sternal border. BREASTS: No masses, skin, nipple or axillary changes. ABDOMEN: Benign, Soft, flat, non-tender, No masses, organomegaly, No inguinal nodes and mildly tender in mid abdomen, normal BS, no rebound. PELVIC EXAM: refused EXTREMITIES: Normal. NEUROLOGIC: Normal. SKIN: scattered benign nevi, has dry skin extensor surfaces of arms ASSESSMENT AND PLAN: Annual Radiology Aide exam. Never sexually active female with Down's syndrome, refuses pelvic exam. On OCPs for dysmenorrhea-Mircette refilled. 2. Cerumen impaction-irrigated. Discussed calcium intake. Source: [facility] RWMCHXTRANSXRTFSYS Document Id: [id number] Electronically signed by Conversion, [facility] Manager Financial Systems [id number] at 11/28/2016 5:56 PM CDT documented in this encounter Plan of Treatment Not on filedocumented as of this encounter Visit Diagnoses Not on filedocumented in this encounter
--- OUTSIDE RECORDS SUMMARY | 2022-04-25 16:14 | XMS_ITS | Encounter Summary ---
:1975 Author Organization [facility] Address [address] [place] [address] Care Team Providers Name Role Phone Unavailable Primary Care Provider Unavailable Encounter Details Date Type Department Care Team Description 10/06/2004 Hospital Encounter HX [facility] ENT Prasad Anaya M.D. [address] [place], [place] [phone] (Wo rk) Social History Tobacco Use Types Packs/Day Years Used Date Smoking Tobacco: Never Assessed Sex Assigned at Date Recorded Not on file documented as of this encounter Progress Notes Prasad Anaya M.D. 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 She has Down's syndrome with narrow canals. She has been using ceruminolytic drops as best I can tell. OBJECTIVE: On examination, Otoscopic - the right canal has some scant lateral cerumen. The tympanic membrane is normal. Left is completely obstructed medially with cerumen. Under binocular microscopy, this is tediously suction debrided. Behind this, there is a moist coating which is also partially suctioned from the tympanic membrane but the visible tympanic membrane is healthy and mobile. PLAN: 1. Ceruminolytic drops once or twice a week to both ears. 2. I will see her back on a prn basis for any recurrent impaction. Prasad Anaya M.D., [facility]/shabnam Source: [facility] Document Id: [id number] documented in this encounter Plan of Treatment Not on filedocumented as of this encounter Visit Diagnoses Not on filedocumented in this encounter
--- OUTSIDE RECORDS SUMMARY | 2022-04-25 16:14 | XMS_ITS | Encounter Summary ---
:1975 Author Organization [facility] Address [address] [place] [address] Care Team Providers Name Role Phone Unavailable Primary Care Provider Unavailable Encounter Details Date Type Department Care Team Description 06/08/2007 Hospital Encounter HX NO MAPPING Morteza Shaver M.D. [address] [place], [place] [phone] (Wo rk) Social History Tobacco Use Types Packs/Day Years Used Date Smoking Tobacco: Never Assessed Sex Assigned at Date Recorded Not on file documented as of this encounter Progress Notes Conversion, Historical Provider Ser - 06/08/2007 7:15 PM CST [id number] SUBJECTIVE: Hue is a 32-year-old Down syndrome patient who presents with her parents. She is actually a fairly functional Downs who complains of having about two or three days of some mild redness and tenderness over her right inner lower leg region. She felt a firm area in the lower leg within the last week and now over the last two to three days it has been a little more red and slightly tender. No fevers. She does not feel it is limiting her at all. She continues to work. Her parents are concerned because a year ago she had similar region on the left leg where it was a cellulitis and she ended up having to have some debridement and surgery. No personal or family history of any clots, recurrent deep vein thromboses, or pulmonary embolisms. PAST MEDICAL HISTORY: Significant for Downs. MEDICATIONS: She takes control pill and vitamins. ALLERGIES: Bees, chloramphenicol, and some eye drops. IMMUNIZATIONS: Up-to-date. SOCIAL HISTORY: Nonsmoker. PHYSICAL EXAM: GENERAL: Patient is alert and oriented, no acute distress. VITAL SIGNS: Stable. LUNGS: Normal respiratory effort, clear to auscultation. CARDIAC: Normal S1, S2. RIGHT LEG: On examination she actually has a palpable firm cord and a superficial vein from the lower medial leg up to just medial to the knee. She has no popliteal tenderness, negative Homans. She hassome mild warmth and very faint erythema, about a 4 cm patch overlying this thrombosed vein in the lower medial jose. LYMPHATICS: No lymphadenopathy noted. NEUROLOGIC: Examination unremarkable. IMAGING: A venous Doppler is performed and shows superficial clot in the greater saphenous and also extension into the deep veins in the popliteal region. ASSESSMENT/PLAN: Deep vein thrombosis. She is on control pills. Will go ahead and stop the control pills,do coagulopathy workup, get her admitted, start her some subcutaneous Lovenox and some instructions.Will start her on some Coumadin and probably she will be able to go home tomorrow if education is appropriate. She will going back to live with her parents transiently. They live in [place]. Morteza Shaver M.D. Chapo Source: [facility] RWMCHXTRANSXRTFSYS Document Id: [id number] documented in this encounter Plan of Treatment Not on filedocumented as of this encounter Visit Diagnoses Not on filedocumented in this encounter
--- OUTSIDE RECORDS SUMMARY | 2022-04-25 16:14 | XMS_ITS | Encounter Summary ---
:1975 Author Organization [facility] Address [address] [place] [address] Care Team Providers Name Role Phone Unavailable Primary Care Provider Unavailable Encounter Details Date Type Department Care Team Description 06/14/2007 Hospital Encounter HX [facility] ANTICOAG Provider, His torical Social History Tobacco Use Types Packs/Day Years Used Date Smoking Tobacco: Never Assessed Sex Assigned at Date Recorded Not on file documented as of this encounter Miscellaneous Notes Miscellaneous - Eliana Farooq RMichaelNMichael - 06/14/2007 1:40 PM CST [id number] Hue Medina [address] [place] [address] June 14, 2007 Dear Ms. Hue Medina: Your Lab today was: INR 3.25 on 06/14/2007 .Your target range for your condition is: 2 - 3 You should: CHANGE YOUR COUMADIN DOSE Your Coumadin Tablet Strength should be: 5 mg Daily Dose: 06/14/2007 THUR:0mg FRI:2.5mg SAT:2.5mg SUN:2.5mg MON: 0mg TUES:2.5mg and on Mon06/20/2007 Get INRdone Your next lab appointment is scheduled for: 06/20/2007 Either at or at [facility] in [facility] and [facility] labs must be drawn before 3 PM. [facility] labs must be drawn before 12 NOON. If you have questions regarding any of the above information or feel the information is not accurateplease call [phone]. Thank you, Eliana Farooq RN [facility] staff: Eliana Farooq, RN; Ritu Campbell, RN; Antonia Mcclellan, RN; Radha Candelaria RN; Fina Peres, RN; Ermelinda Casas, RN Source: [facility] RWHXTRANSXRTFSYS Document Id: [id number] documented in this encounter Plan of Treatment Not on filedocumented as of this encounter Visit Diagnoses Not on filedocumented in this encounter
--- OUTSIDE RECORDS SUMMARY | 2022-04-25 16:14 | XMS_ITS | Encounter Summary ---
:1975 Author Organization [facility] Address [address] [place] [address] Care Team Providers Name Role Phone Unavailable Primary Care Provider Unavailable Encounter Details Date Type Department Care Team Description 03/30/2005 Hospital Encounter HX [facility] OBGYN Kalyn Kim M.D. [address] [place] [phone] (Wo rk) Social History Tobacco Use Types Packs/Day Years Used Date Smoking Tobacco: Never Assessed Sex Assigned at Date Recorded Not on file documented as of this encounter Progress Notes Marie Kim M.D. - 03/30/2005 9:00 AM CDT [id number] Hue is a 30 year old here for her annual exam. 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 CELLULITIS OF LEG 01/15/00 Comment: L lower leg PAST SURGICAL HISTORY: Review of patient's past surgical history indicates: RW GENERAL SURG (ABSTRACTED) 01/15/00 Comment: I & D w debridement, L thigh and leg cellulitis/abscess CURRENT MEDICATIONS: Current outpatient prescriptions: MIRCETTE 0.15-0.02/0.01 MG (13/11) OR TABS 1 TABLET DAILY SM EAR DROPS 6.5 % OT SOLN as directed, 3 drops each ear twice weekly VISINE 0.05 % OP SOLN None Entered LOPERAMIDE HCL 2 MG OR CAPS 1 CAPSULE TWICE DAILY NEEDED ALLERGIES: Quinolones, Bees, Chloramphenicol FAMILY HX: Family History: Cancer Maternal Aunt Comment: breast Thyroid Maternal Aunt Comment: several maternal aunts Anesthesia No family hx of Blood Disease No family hx of Neurological No family hx of ROS: REVIEW OF SYSTEMS: NEUROLOGIC: Negative EYES: Negative ENT: Negative GI: Negative BREAST: Negative : Negative HEPATOLOGIST: Negative CV: Negative PULMONARY: Negative MUSCULOSKELETAL: Negative PSYCH: Negative SOCIAL HISTORY: Social History Marital Status: Single Spouse Name: N/A Years of Education: N/A Number of Children: 0 Occupational History None on file Social History Main Topics Tobacco Use: Never Alcohol Use: Yes Comment: special occasion Drug Use: No Sexually Active: Yes Partners: Male Control/ Protection: Pill Other Topics Concern BLOOD TRANSFUSIONS No SLEEP CONCERN No STRESS CONCERN No WEIGHT CONCERN No EXERCISE Yes SEAT BELT Yes SELF EXAMS No Social History Narrative None on file PHYSICAL EXAM: This is a [...] EXAM: Lymph: no enlarged groin nodes External genitlaia: normal development, normal BUS, no lesions Perineum: normal skin, no lesions, good support Urethra meatus: normal , no lesion or caruncle Urethra: normal, nontender Bladder: nontender, no masses, not enlarged Vagina:normal mucosa and ruggae, no lesions , VERY stenotic hymenal ring, barely admits 5th finger with significant discomfort Cervix:palpated normal and no lesions Uterus: smooth, firm, mobile, without irregularities Adnexa: not palpable and limited due to discomfort RV: not indicated Rectum: no hemorrhoids, no bleeding EXTREMITIES: Normal. NEUROLOGIC: Normal. 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 Down's, never sexually active, very difficult exam Health maintenance includes: refilled mircette for dysmenorrhea. ?pap next yr. Source: [facility] RWHXTRANSXRTFSYS Document Id: [id number] documented in this encounter Plan of Treatment Not on filedocumented as of this encounter Visit Diagnoses Not on filedocumented in this encounter
--- OUTSIDE RECORDS SUMMARY | 2022-04-25 16:14 | XMS_ITS | Encounter Summary ---
:1975 Author Organization [facility] Address [address] [place] [address] Care Team Providers Name Role Phone Unavailable Primary Care Provider Unavailable Encounter Details Date Type Department Care Team Description 06/20/[address] [facility] Provider, Renny avila Social History Tobacco Use Types Packs/Day Years Used Date Smoking Tobacco: Never Assessed Sex Assigned at Date Recorded Not on file documented as of this encounter Plan of Treatment Not on filedocumented as of this encounter Visit Diagnoses Not on filedocumented in this encounter
--- OUTSIDE RECORDS SUMMARY | 2022-04-25 16:14 | XMS_ITS | Encounter Summary ---
:1975 Author Organization [facility] Address [address] [place] [address] Care Team Providers Name Role Phone Unavailable Primary Care Provider Unavailable Encounter Details Date Type Department Care Team Description 03/13/2006 Hospital Encounter HX [facility] Kalyn Stafford M.D. [address] [place], [place] [phone] (Wo rk) Social History Tobacco Use Types Packs/Day Years Used Date Smoking Tobacco: Never Assessed Sex Assigned at Date Recorded Not on file documented as of this encounter Miscellaneous Notes Telephone Encounter - Génesis Díaz, L.P.N. - 03/13/2006 12:00 AM CDT [id number] Note attached to rx to make an appt for phy Source: [facility] Document Id: [id number] Electronically signed by [facility] Licensed Mass Real Estate Appraiser [id number] at 11/28/2016 3:47 PM CDT Telephone Encounter - Marie Kim M.D. - 03/13/2006 12:00 AM CDT [id number] Need a pharmacy Source: [facility] Document Id: [id number] Electronically signed by Conversion, [facility] Licensed [employer] Real Estate Appraiser [id number] at 11/28/2016 3:47 PM CDT documented in this encounter Plan of Treatment Not on filedocumented as of this encounter Visit Diagnoses Not on filedocumented in this encounter
--- OUTSIDE RECORDS SUMMARY | 2022-04-25 16:14 | XMS_ITS | Encounter Summary ---
:1975 Author Organization [facility] Address [address] [place] [address] Care Team Providers Name Role Phone Unavailable Primary Care Provider Unavailable Encounter Details Date Type Department Care Team Description 03/11/2005 Hospital Encounter [facility]X [facility] Kalyn Stafford M.D. [address] [place], [place] [phone] (Wo rk) Social History Tobacco Use Types Packs/Day Years Used Date Smoking Tobacco: Never Assessed Sex Assigned at Date Recorded Not on file documented as of this encounter Plan of Treatment Not on filedocumented as of this encounter Visit Diagnoses Not on filedocumented in this encounter
--- OUTSIDE RECORDS SUMMARY | 2022-04-25 16:14 | XMS_ITS | Encounter Summary ---
:1975 Author Organization [facility] Address [address] [place] [address] Care Team Providers Name Role Phone Unavailable Primary Care Provider Unavailable Encounter Details Date Type Department Care Team Description 06/08/2007 Hospital Encounter HX NO MAPPING Provider, Historical Social History Tobacco Use Types Packs/Day Years Used Date Smoking Tobacco: Never Assessed Sex Assigned at Date Recorded Not on file documented as of this encounter Miscellaneous Notes Miscellaneous - Morteza Shaver M.D. - 06/08/2007 9:25 PM CST [id number] [facility] [address] [facility], [address] Name: Hue Medina Birthdate: 1975 SSN: [id number] [facility] Admission Date: 06/08 Allergy: Quinolones, Bees and Chloramphenicol PHYSICIAN's DISCHARGE / TRANSFER ORDERS DISCHARGE TO: Home with parents MEDICATIONS: PHARMACY CONSULT: NO Current outpatient prescriptions Medication Sig LOVENOX 80 MG/0.8ML SC SOLN 80 mg subcut bid COUMADIN 5 MG OR TABS One tablet by mouth once daily to be adjusted by INR clinic TYLENOL/CODEINE #3 300-30 MG OR TABS ONE TO TWO TABLETS EVERY 4 TO 6 HOURS NEEDED FOR PAIN LOPERAMIDE HCL 2 MG OR TABS 1 TABLET NEEDED CALCIUM + D OR 1 TABLET DAILY DIET: Regular. No NSAID's or ASA CONDITION ON DISCHARGE: Stable LEVEL OF ACTIVITY: up as tolerated and compression stocking on in am and off at pm, prn heat to right leg APPOINTMENTS: Primary Physician in 1-2 weeks, INR appointment on Monday or for education and repeat INR and platelets REFERRALS: INR clinic OTHER ORDERS/COMMENTS (to be ordered in [facility] by discharging physician): None: DIAGNOSIS: SUPERFICIAL PHLEBITIS-LEG DISCHARGE SUMMARY: Hue is a 32 year old female with Downs presenting to urgent care with right lower leg discomfortand redness. Noted greater saphenous clot to above the knee on exam. Doppler confirms this along with extension to deep veins below the knee in a short segment. Due to extensiveness of the superficial clot and extension into deep system below the knee felt she should be anticoagulated for 3 mos to prevent extension to true popliteal or above DVT. She was on oral contraceptive pills and these have been stopped. Coagulopathy labs pending. Started on Lovenox and coumadin. Parents and Jade demonstrated good injection ability to perform this at home. She will go to her parents home in [place] since she has Downs (although highly functional). Will need to come back to on mon/tues for INR clinic initial appt and to see if they can set up INR checks thru [facility] lab. PROCEDURE(S) PERFORMED: IMPRESSION: 1. Positive for superficial greater saphenous thrombus along medial right calf, knee to ankle. 2. Positive for deep vein thrombus in posterior calf, peroneal vein. 3. No evidence for deep vein thrombus from common femoral to popliteal vein. Dr. Morteza Shaver 06/09/2007 Source: [facility] RWMCHXTRANSXRTFSYS Document Id: [id number] Electronically signed by Lay, [facility] Director Of Culture [id number] at 11/28/2016 6:03 AM CDT Miscellaneous - Suzanne Rich 06/08/2007 9:25 PM CST [id number] [place] [id number] [facility], [address] Name: Hue Medina Birthdate: 1975 SSN: [id number] [facility] Allergy: Quinolones, Bees and Chloramphenicol Discharge Date: 06/09/2007 Discharge Instructions Discharged to: Home - Activities: -Up as tolerated and compression stocking on in a.m. and off at p.m., as needed heat to right leg. Medications: Current outpatient prescriptions Medication Sig LOVENOX 80 MG/0.8ML 80 mg in abdominal fat twice a day. COUMADIN 5 MG TABS One tablet by mouth once daily to be adjusted by INR clinic TYLENOL/CODEINE #3 300-30 MG TABS ONE TO TWO TABLETS EVERY 4 TO 6 HOURS NEEDED FOR PAIN LOPERAMIDE HCL 2 MG TABS 1 TABLET NEEDED CALCIUM + D 1 TABLET DAILY Discharge Vital Signs: Temp: 98.7 degrees Fahrenheit; B/P: 102/64mHg; Pulse: 91; Respiration: 16. Pain Management: Most recent pain medication 0 Dose: : Route: ; Time last given: 0 .Discharge Pain Score: 10 . Time the discharge pain score was documented 1200. AM Nursing Instructions: Patient Education: Lovenox Diet: regular (No NSAIDS or Aspirin) Appointment(s): To see Dr. Garibay at [facility] on Monday, June 15 at 9:10 a.m. INR appointment at [facility] on Monday or Monday for education and repeat INR and Platelets.([phone]) I have all of my belongings . I understand my discharge instructions. My medications were reviewed with me and my parent(s). Patient's Signature: Nurse Discharging this patient signature: RN Signature & Date: Date: 06/09/2007 Please see paper chart for additional discharge documentation info: (time, how & by). Source: [facility] RWHXTRANSXRTFSYS Document Id: [id number] Electronically signed by Conversion, [facility] Director Of Culture [id number] at 11/28/2016 6:03 AM CDT documented in this encounter Plan of Treatment Not on filedocumented as of this encounter Visit Diagnoses Not on filedocumented in this encounter
--- OUTSIDE RECORDS SUMMARY | 2022-04-25 16:14 | XMS_ITS | Encounter Summary ---
:1975 Author Organization [facility] Address [address] [place] [address] Care Team Providers Name Role Phone Unavailable Primary Care Provider Unavailable Encounter Details Date Type Department Care Team Description 10/05/2004 Hospital Encounter HX [facility] ENT Provider, Historic al Social History Tobacco Use Types Packs/Day Years Used Date Smoking Tobacco: Never Assessed Sex Assigned at Date Recorded Not on file documented as of this encounter Miscellaneous Notes Telephone Encounter - Conversion, Historical Provider Ser - 10/05/2004 12:00 AM CDT [id number] pts insurance company will cover this if written as script, accepting this will automatically send to pharmacy [facility] Document Id: [id number] documented in this encounter Plan of Treatment Not on filedocumented as of this encounter Visit Diagnoses Not on filedocumented in this encounter
--- OUTSIDE RECORDS SUMMARY | 2022-04-25 16:14 | XMS_ITS | Encounter Summary ---
:1975 Author Organization [facility] Address [address] [place] [address] Care Team Providers Name Role Phone Unavailable Primary Care Provider Unavailable Encounter Details Date Type Department Care Team Description 06/11/2007 Hospital Encounter HX [facility] Morteza Nevarez M.D. [address] [place] [address] (Wo rk) Social History Tobacco Use Types Packs/Day Years Used Date Smoking Tobacco: Never Assessed Sex Assigned at Date Recorded Not on file documented as of this encounter Miscellaneous Notes Telephone Encounter - Amalia Frost L.P.N. - 06/11/2007 12:00 AM CST [id number] Pt seen dr Shaver on 06-08 and he ordered a total protein S. Usually they run a free protein S. Wonderif you would like to change to that. We need to call the lab at the [facility] with response. # is [phone]. Can dr Garibay review in dr Sampson absence? Source: [facility] Document Id: [id number] Electronically signed by Conversion, [facility] Nutrition Club Ambassador [id number] at 11/28/2016 6:03 AM CDT Telephone Encounter - Sridhar Garibay M.D. - 06/11/2007 12:00 AM JEWEL STRINGER [id number] Ok to do a free protein S- please let them know. Source: [facility] Document Id: [id number] Electronically signed by Conversion, [facility] Nutrition [employer] Ambassador [id number] at 11/28/2016 6:03 AM CDT Telephone Encounter - Ellis Salvador L.P.N. - 06/11/2007 12:00 AM JEWEL STRINGER [id number] What needs to be done with this. I don't see any open or future orders at all. Source: [facility] Document Id: [id number] Electronically signed by Conversion, [facility] Nutrition [employer] Ambassador [id number] at 11/28/2016 6:03 AM CDT Telephone Encounter - Conversion, Historical Provider Ser - 06/11/2007 12:00 AM CST [id number] II called the number and gave the ok to change the lab test. Source: [facility] Document Id: [id number] documented in this encounter Plan of Treatment Not on filedocumented as of this encounter Visit Diagnoses Not on filedocumented in this encounter
--- OUTSIDE RECORDS SUMMARY | 2022-04-25 16:14 | XMS_ITS | Encounter Summary ---
:1975 Author Organization [facility] Address [address] [place] [address] Care Team Providers Name Role Phone Unavailable Primary Care Provider Unavailable Encounter Details Date Type Department Care Team Description 06/06/2007 Hospital Encounter HX NO MAPPING Provider, Historical Social History Tobacco Use Types Packs/Day Years Used Date Smoking Tobacco: Never Assessed Sex Assigned at Date Recorded Not on file documented as of this encounter Plan of Treatment Not on filedocumented as of this encounter Visit Diagnoses Not on filedocumented in this encounter
--- OUTSIDE RECORDS SUMMARY | 2022-04-25 16:14 | XMS_ITS | Encounter Summary ---
:1975 Author Organization [facility] Address [address] [place] [address] Care Team Providers Name Role Phone Unavailable Primary Care Provider Unavailable Encounter Details Date Type Department Care Team Description 09/26/2006 Hospital Encounter HX [facility] Provider, [facility] Social History Tobacco Use Types Packs/Day Years Used Date Smoking Tobacco: Never Assessed Sex Assigned at Date Recorded Not on file documented as of this encounter Progress Notes Conversion, Cathie Provider Ser - 09/26/2006 3:00 PM CDT [id number] SUBJECTIVE: Hue Medina is a 31 year old female who presents complaining of [...] PLAN: Follow-up if recurs, or as needed. Source: [facility] Document Id: [id number] documented in this encounter Plan of Treatment Not on filedocumented as of this encounter Visit Diagnoses Not on filedocumented in this encounter
--- OUTSIDE RECORDS SUMMARY | 2022-04-25 16:14 | XMS_ITS | Encounter Summary ---
:1975 Author Organization [facility] Address [address] [place] [address] Care Team Providers Name Role Phone Unavailable Primary Care Provider Unavailable Encounter Details Date Type Department Care Team Description 06/11/2007 Hospital Encounter HX [facility] ANTICOAntonia Faust R.N. Social History Tobacco Use Types Packs/Day Years Used Date Smoking Tobacco: Never Assessed Sex Assigned at Date Recorded Not on file documented as of this encounter Miscellaneous Notes Miscellaneous - Antonia Mcclellan, R.N. - 06/11/2007 12:00 AM CST [id number] June 11, 2007 Dear Colleague, Our patient, Hue Medina, 1975 is currently on Warfarin (Coumadin) therapy for Superficial Phlebitis(451.0). INR monitoring is required to continue the consistent management of our patient. Please draw an INR on a PRN basis and fax the results to: [facility] [place] [address] Thank You for your cooperation. Sincerely, Cotton MD Julie Motz, RN Source: [facility] Document Id: [id number] Electronically signed by Conversion, [facility] Hardscape Foreman [id number] at 11/28/2016 6:03 AM CDT documented in this encounter Plan of Treatment Not on filedocumented as of this encounter Visit Diagnoses Not on filedocumented in this encounter
--- OUTSIDE RECORDS SUMMARY | 2022-04-25 16:14 | XMS_ITS | Encounter Summary ---
:1975 Author Organization [facility] Address [address] [place] [address] Care Team Providers Name Role Phone Unavailable Primary Care Provider Unavailable Encounter Details Date Type Department Care Team Description 11/01/2005 Hospital Encounter HX [facility] Osvaldo Harris M.D. Social History Tobacco Use Types Packs/Day Years Used Date Smoking Tobacco: Never Assessed Sex Assigned at Date Recorded Not on file documented as of this encounter Progress Notes Osvaldo Harris M.D. - 11/01/2005 2:45 PM CDT [id number] CLINIC ENCOUNTER Hue is in today for evaluation of some redness on the medial aspect of her right thigh. It has been present for a couple of weeks. She is a patient familiar with me. Previously she had problems with infections and abscesses and currently though she has had no fevers or chills, no drainage from this area. It has been present for a couple of weeks and she brought it to the attention of her father because it was a little sore. The soreness has subsided but there is a lump that has persisted. On exam in the medial thigh, about 6 inches up from the knee, she has an area of induration, swelling and almost a palpable cord consistent with a resolving superficial thrombophlebitis. There is no fluctuance to it. There is minimal tenderness. No jessy cellulitis. I grabbed by ultrasound machine and ultrasounding it, it is consistent with superficial thrombophlebitis. There is a patent vein both medial and lateral to it that goes into an area where you can almost see a little bit of occlusive clot and the vein is noncompressible. There is no evidence of fluid accumulation and nothing that would suggest an abscess or undrained purulence. In further discussion, she has had no further leg pain, no shortness of breath, no history of DVTs. I talked to Hue and her father and this is most consistent with a resolving superficial thrombophlebitis. We talked about adding heat once or twice a day, anti-inflammatory medication for pain and this should resolve on its own. If it gets worse, they will present for reevaluation. Low chance of infection developing in this area. Osvaldo Harris M.D. MARGARET/jerry cc: Source: [facility] RWHXTRANSXSYS Document Id: [id number] documented in this encounter Plan of Treatment Not on filedocumented as of this encounter Visit Diagnoses Not on filedocumented in this encounter
--- OUTSIDE RECORDS SUMMARY | 2022-04-25 16:14 | XMS_ITS | Encounter Summary ---
:1975 Author Organization [facility] Address [address] [place] [address] Care Team Providers Name Role Phone Unavailable Primary Care Provider Unavailable Encounter Details Date Type Department Care Team Description 05/03/2007 Hospital Encounter HX [facility] Provider, Renny avila Social History Tobacco Use Types Packs/Day Years Used Date Smoking Tobacco: Never Assessed Sex Assigned at Date Recorded Not on file documented as of this encounter Progress Notes Lay, Cathie Provider Ser - 05/03/2007 2:15 PM CST [id number] Hue Medina is a 32 year old female. Patient received: FLUZONE INJECTION Patient Questionaire: I have a fever or feel ill today? No I have an allergy to eggs, gelatin or thimerosal? No I have had a reaction to the flu vaccine the past? No I have had Guillain-Munson syndrome? No VIS information given Source: [facility] Document Id: [id number] documented in this encounter Plan of Treatment Not on filedocumented as of this encounter Visit Diagnoses Not on filedocumented in this encounter
--- OUTSIDE RECORDS SUMMARY | 2022-04-25 16:14 | XMS_ITS | Encounter Summary ---
:1975 Author Organization [facility] Address [address] [place] [address] Care Team Providers Name Role Phone Unavailable Primary Care Provider Unavailable Encounter Details Date Type Department Care Team Description 06/11/2007 Hospital Encounter HX NO MAPPING Provider, Historical Social History Tobacco Use Types Packs/Day Years Used Date Smoking Tobacco: Never Assessed Sex Assigned at Date Recorded Not on file documented as of this encounter Plan of Treatment Not on filedocumented as of this encounter Visit Diagnoses Not on filedocumented in this encounter
--- OUTSIDE RECORDS SUMMARY | 2022-04-25 16:14 | XMS_ITS | Encounter Summary ---
:1975 Author Organization [facility] Address [address] [place] [address] Care Team Providers Name Role Phone Unavailable Primary Care Provider Unavailable Encounter Details Date Type Department Care Team Description 05/06/2005 Hospital Encounter [facility] Provider, Renny avila Social History Tobacco Use Types Packs/Day Years Used Date Smoking Tobacco: Never Assessed Sex Assigned at Date Recorded Not on file documented as of this encounter Plan of Treatment Not on filedocumented as of this encounter Visit Diagnoses Not on filedocumented in this encounter
--- OUTSIDE RECORDS SUMMARY | 2022-04-25 16:14 | XMS_ITS | Encounter Summary ---
:1975 Author Organization [facility] Address [address] [place] [address] Care Team Providers Name Role Phone Unavailable Primary Care Provider Unavailable Encounter Details Date Type Department Care Team Description 04/09/2007 Hospital Encounter HX [facility] Kalyn Stafford M.D. [address] [place], [place] [address] (Wo rk) Social History Tobacco Use Types Packs/Day Years Used Date Smoking Tobacco: Never Assessed Sex Assigned at Date Recorded Not on file documented as of this encounter Progress Notes Lay, Historical Provider Frank - 04/09/2007 1:15 PM CDT [id number] Addended by: SESAR FORRESTER on: 04/09/2007 4:49:19 PM Modules accepted: Orders Source: [facility] Document Id: [id number] Marie Kim M.D. - 04/09/2007 1:15 PM CDT [id number] Hue is a 32 year old here for her annual exam. 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 Her menses are regular, no sig cramps, not heavy, no bleeding between cycles HPI: No problems on OCPs. Down's syndrome, lives independently. Has never had penile penetration intercourse. 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 CELLULITIS OF LEG 01/15/00 L lower leg PAST SURGICAL HISTORY: Past Surgical History Procedure Date general surg (abstracted) 01/15/00 I & D w debridement, L thigh and leg cellulitis/abscess CURRENT MEDICATIONS: Current outpatient prescriptions Medication Sig LOPERAMIDE HCL 2 MG OR TABS 1 TABLET NEEDED CALCIUM + D OR 1 TABLET DAILY MIRCETTE 0.15-0.02/0.01 MG (13/11) OR TABS 1 TABLET DAILY ALLERGIES: Quinolones, Bees and Chloramphenicol FAMILY HX: Family History Problem Relation Cancer Maternal Aunt breast Thyroid Maternal Aunt several maternal aunts Anesthesia No family hx of Blood Disease No family hx of Neurological No family hx of ROS: REVIEW OF SYSTEMS: NEUROLOGIC: Negative EYES: Negative ENT: Negative GI: Negative BREAST: Negative : Negative VARNISH COOKER: Negative CV: Negative PULMONARY: Negative MUSCULOSKELETAL: Negative [...] narrative on file HEALTH HABITS: calcium intake good, last dT >10 yrs, last lipids 2003 with glucose, normal, last mammogram N/A and was normal, last pap 2002 and was normal, PHYSICAL EXAM: This is a well-developed, well-nourished female in no apparent distress. ENT: ENT exam normal, impacted cerumen bilaterally, no neck nodes or sinus tenderness. NECK: [...] genitalia: normal development, normal BUS, no lesions and some psoriasis at mons. Perineum: normal skin, no lesions, good support Urethra meatus: normal , no lesion or caruncle Urethra: normal, nontender Bladder: nontender, no masses, not enlarged Vagina: refused Cervix: refused Uterus: refused Adnexa: refused RV: not indicated Rectum: no hemorrhoids, no bleeding EXTREMITIES: Normal. NEUROLOGIC: Normal. 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 Refuses pelvic exam. 2. Dysmenorrhea-doing well on Mircette. Health maintenance includes: tetanus vaccine (DTAP). At some point, would rec: pap/pelvic under anesthesia. Last pap in 2002 and was normal. Source: [facility] Document Id: [id number] documented in this encounter Plan of Treatment Not on filedocumented as of this encounter Visit Diagnoses Not on filedocumented in this encounter
--- OUTSIDE RECORDS SUMMARY | 2022-04-25 16:14 | XMS_ITS | Encounter Summary ---
:1975 Author Organization [facility] Address [address] [place] [address] Care Team Providers Name Role Phone Unavailable Primary Care Provider Unavailable Encounter Details Date Type Department Care Team Description 06/08/2007 - Hospital Encounter HX NO MAPPING Morteza Shaver M.D. 06/09/2007 [address] [place] [phone] (Wo rk) Social History Tobacco Use Types Packs/Day Years Used Date Smoking Tobacco: Never Assessed Sex Assigned at Date Recorded Not on file documented as of this encounter Plan of Treatment Not on filedocumented as of this encounter Visit Diagnoses Not on filedocumented in this encounter
--- OUTSIDE RECORDS SUMMARY | 2022-04-25 16:14 | XMS_ITS | Encounter Summary ---
:1975 Author Organization [facility] Address [address] [place] [address] Care Team Providers Name Role Phone Unavailable Primary Care Provider Unavailable Encounter Details Date Type Department Care Team Description 06/14/2007 Hospital Encounter HX NO MAPPING Provider, Historical Social History Tobacco Use Types Packs/Day Years Used Date Smoking Tobacco: Never Assessed Sex Assigned at Date Recorded Not on file documented as of this encounter Plan of Treatment Not on filedocumented as of this encounter Visit Diagnoses Not on filedocumented in this encounter
--- OUTSIDE RECORDS SUMMARY | 2022-04-25 16:15 | XMS_ITS | Encounter Summary ---
:1975 Author Organization [facility] Address [address] [place] [address] Care Team Providers Name Role Phone Unavailable Primary Care Provider Unavailable Encounter Details Date Type Department Care Team Description 05/18/2004 Hospital Encounter HX [facility] Social History Tobacco Use Types Packs/Day Years Used Date Smoking Tobacco: Never Assessed Sex Assigned at Date Recorded Not on file documented as of this encounter Progress Notes Conversion, Historical Provider Ser - 05/18/2004 4:15 PM CST [id number] Addended by: JAS SANCHEZ on: 05/25/2004,12:25 PM Comment: TranscriptionModules accepted: Ale Sam RN NEWS DEPARTMENT INTERN Student, [facility], will dictate note for Hue Medina's encounter. Marry Lyn RN LEATHER COVERER and Jenny Sam collaborated on all aspects of this clinic vi sit.SUBJECTIVE: This is a 29-year-old female here today with a four day history of a sore throat. She is unable to describe the pain and unable to rate the pain on a scale of 1 - 10. She has tried c ough drops which she says has helped. no fevers. No chills. No nasal congestion. No cough. No ot her symptoms. No other exposure to strep throat or other illness exposure that she is aware of. A LLERGIES: Are to Quinolones, Bees, ChloramphenicolCURRENT MEDICATIONS: Mircette.OBJECTIVE: See Vi tato signs per Epic.Head normocephalic.Scalp nontender with no lesions.Eyes pupils equal, round, re active to light and accommodation.Sclerae white. Conjunctivae are clear.Ears bilateral ear canals are slightly occluded with a large amount of yellow cerumen.TMs are visualized and noted to be jud y lund with anterior light reflex noted.Nose nasal septum is midline. There is no discharge.No swe lling of the nasal mucosa.Mouth buccal mucosa is intact.Oropharynx tonsils are +2 but there is no e xudate and no erythema noted. Neck is supple. Full range of motion. No lymphadenopathy.ASSESSME NT: Pharyngitis.PLAN: Discussed with the patient possible need for a strep culture. She states repe atedly she is on a tight time schedule and the patient left before a strep culture was able to be obt ained. Recommended follow-up if symptoms would persist or are unrelieved by over the counter cough d rops or pain reliever and she is agreeable to this.Jenny Sam R.N., SENIOR PROPERTY MANAGER/jas Lyn, CNPD: 05/18/2004T: 05/25/2004 Source: [facility] RWHXTRANSXSYS Document Id: [id number] documented in this encounter Plan of Treatment Not on filedocumented as of this encounter Visit Diagnoses Not on filedocumented in this encounter
--- OUTSIDE RECORDS SUMMARY | 2022-04-25 16:15 | XMS_ITS | Encounter Summary ---
:1975 Author Organization [facility] Address [address] [place] [address] Care Team Providers Name Role Phone Unavailable Primary Care Provider Unavailable Encounter Details Date Type Department Care Team Description 07/29/2002 Hospital Encounter HX [facility] Frankie Seay M.D. [address] [place] [address] (Wo rk) Social History Tobacco Use Types Packs/Day Years Used Date Smoking Tobacco: Never Assessed Sex Assigned at Date Recorded Not on file documented as of this encounter Miscellaneous Notes Telephone Encounter - Conversion, Historical Provider Ser - 07/29/2002 12:00 AM CST [id number] >> MAX Argueta Jul 29, 2002 8:05 AM >> CALL RECEIVED. Contact: Refill request received from Pharm. Set to fax. Source[facility] Document Id: [id number] documented in this encounter Plan of Treatment Not on filedocumented as of this encounter Visit Diagnoses Not on filedocumented in this encounter
--- OUTSIDE RECORDS SUMMARY | 2022-04-25 16:15 | XMS_ITS | Encounter Summary ---
:1975 Author Organization [facility] Address [address] [place] [address] Care Team Providers Name Role Phone Unavailable Primary Care Provider Unavailable Encounter Details Date Type Department Care Team Description 12/18/2003 Hospital Encounter HX [facility] Amber Lopes RMichaelNMichael [address] [place], [place] [phone] Social History Tobacco Use Types Packs/Day Years Used Date Smoking Tobacco: Never Assessed Sex Assigned at Date Recorded Not on file documented as of this encounter Miscellaneous Notes Telephone Encounter - Conversion, Historical Provider Ser - 12/18/2003 12:00 AM CDT [id number] >> RIVKA CARMONA Jordyn Dec 18, 2003 11:22 AM >> CALL RECEIVED. Contact: I called and left a message that an exam is needed before further refills, will you provide 3 months until she can get in? [facility] Document Id: [id number] documented in this encounter Plan of Treatment Not on filedocumented as of this encounter Visit Diagnoses Not on filedocumented in this encounter
--- OUTSIDE RECORDS SUMMARY | 2022-04-25 16:15 | XMS_ITS | Encounter Summary ---
:1975 Author Organization [facility] Address [address] [place] [address] Care Team Providers Name Role Phone Unavailable Primary Care Provider Unavailable Encounter Details Date Type Department Care Team Description 07/26/2004 Hospital Encounter HX [facility] Marsha Lim M.D. [address] [place], [place] [address] (Wo rk) Social History Tobacco Use Types Packs/Day Years Used Date Smoking Tobacco: Never Assessed Sex Assigned at Date Recorded Not on file documented as of this encounter Progress Notes Conversion, Historical Provider Ser - 07/26/2004 2:10 PM CST [id number] Addended by: YARELIS SANCHEZ on: 07/29/2004 4:48:05 PM Comment: Ochoa Swann presents today with left earache over the past week.. She has had no fever or drainage. Otherwise feeling well. EXAMINATION: Patient is alert and oriented, pleasant and cooperative with exam, no acute distress. Vitals - see nursing note. Left tympanic membrane obstructed with cerumen. Debridement was attempted with curet, which was unsuccessful. Ear wash also left some residual wax. Nares clear. Oral pharynx clear. Neck supple. Lungs clear. ASSESSMENT: 1. Left otalgia possibly secondary to #2 but may also have otitis media. 2. Cerumen impaction, debridement unsuccessful. PLAN: Start Amoxil and refer to Dr. Anaya. Sridhar Garibay M.D./yarelis [facility]: [facility] Document Id: [id number] documented in this encounter Plan of Treatment Not on filedocumented as of this encounter Visit Diagnoses Not on filedocumented in this encounter
--- OUTSIDE RECORDS SUMMARY | 2022-04-25 16:15 | XMS_ITS | Encounter Summary ---
:1975 Author Organization [facility] Address [address] [place] [address] Care Team Providers Name Role Phone Unavailable Primary Care Provider Unavailable Encounter Details Date Type Department Care Team Description 11/01/2001 Hospital Encounter [facility]X [facility] Frankie Seay M.D. [address] [place], [place] [phone] (Wo rk) Social History Tobacco Use Types Packs/Day Years Used Date Smoking Tobacco: Never Assessed Sex Assigned at Date Recorded Not on file documented as of this encounter Progress Notes Conversion, Historical Provider Ser - 11/01/2001 4:00 PM CDT [id number] Hue is a 26 year old who presents for her annual physical.HPI: Hue Medina is a 26 year old Obstetric History with mild MR and Down's Syndrom. Periods are regular q 28-30 days and using Mircette for cycle control. Is not sexually active. Complaints today : having episodes of diarr hea which have improved. May be related to dietary habits. Will avoid greasy food such as hamburger. 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 Comment: cleft mitral valve CELLULITIS OF LEG 01/15/00 Comment: L lower legPAST SURGICAL HISTORY: Review of patient's past surgical hist ory indicates: RW GENERAL SURG (ABSTRACTED) 01/15/00 Comment: I & D w debr idementIris thigh and leg cellulitis/abscessCURRENT MEDICATIONS: Current prescription s:LOPERAMIDE HCL TABS 2 MG OR, 1 TABLET TWICE DAILY NEEDED, D: 20, R: 1MIRCETTE TABS OR, 1 TAB LET DAILY, D: 3 cycles, R: 3ALLERGIES: Quinolones, BeesPROBLEMS: There is no problem list on fi le for this patient.SOCIAL HISTORY: Social History Marital Status: Single Spouse Na me: Years of Education: Number of children: 0 Social H istory Main Topics Tobacco Use: Never Alcohol Use: Yes Comment: special occa solo Drug Use: Not Asked Sexually Active: Yes Partners with: MaleOther Topics ConcernSLEEP CONCERN NoSTRESS CONCERN NoWEIGHT CONCERN No EXERCISE YesSEAT BELT YesSELF EXAMS NoSocial History Na rrative None on fileFAMILY HISTORY: Review of patient's family history indicates: Cancer Maternal Aunt Comment: breast Thyroid Mate rnal Aunt Comment: several maternal auntsREVIEW OF SYSTEMS:EYES: negative.ENT: n egative. CV: negative.RESPIRATORY: negative.BREAST: negative.GI: negative.: negative.MUSCULO SKELETAL: negative.NEUROLOGIC: negative.SKIN: negative.PSYCH: negative.PHYSICAL EXAM:EYES: norm al.ENT: ENT exam normal, no neck nodes or sinus tenderness.NECK: Supple, no adenopathy and thyroid normal.BREAST: No masses, skin, nipple or axillary changes.CV: Regular rate, rhythm and 3/6 murmur, rub, gallop.RESPITORY: normal and clear to auscultation.ABDOMEN: Benign, Soft, flat, non-tender, N o masses, organomegaly, No inguinal nodes and Bowel sounds normoactive.PELVIC EXAM:EXTERNAL GENITAL IA: normal femaleVAGINA: Normal mucosa, no discharge.CERVIX: Nulliparous, closed, mobile, no disch arge.UTERUS: Normal shape, position and consistency.ADNEXA: No masses, nodularity, tenderness.RECT UM: Normal.EXTREMITIES: Normal. NEUROLOGIC: Normal.ASSESSMENT: Normal SCOUT exam. Down's Syndrome. PLAN: Pap and labs as noted. Prescription refill as noted. Quick Note by: RACHEAL TAYLOR on 11/05/01 at 11:37 AM. happy pap sent Source: [facility] RWHXTRANSXSYS Document Id: [id number] documented in this encounter Miscellaneous Notes Miscellaneous - Conversion, Historical Provider Ser - 11/01/2001 4:00 PM CDT [id number] Hue Medina [facility] [address] [place] [address] November 05, 2001 Dear Hue Medina, I am happy to inform you that your recent cervical cancer screening test (PAP smear) was normal. Preventative screening such as this helps insure your health for years to come. Congratulations for taking care of yourself! Please contact my office if you have any further questions. [phone]. Sincerely, Niesha Chavez M.D. OBSTETRICS/GYNECOLOGY [facility] Source: [facility] Document Id: [id number] documented in this encounter Plan of Treatment Not on filedocumented as of this encounter Visit Diagnoses Not on filedocumented in this encounter
--- OUTSIDE RECORDS SUMMARY | 2022-04-25 16:15 | XMS_ITS | Encounter Summary ---
:1975 Author Organization [facility] Address [address] [place] [address] Care Team Providers Name Role Phone Unavailable Primary Care Provider Unavailable Encounter Details Date Type Department Care Team Description 11/07/2003 Hospital Encounter HX [facility] Amber Lopes RMichaelN. [address] [place], [place] [phone] Social History Tobacco Use Types Packs/Day Years Used Date Smoking Tobacco: Never Assessed Sex Assigned at Date Recorded Not on file documented as of this encounter Miscellaneous Notes Telephone Encounter - Conversion, Historical Provider Ser - 11/07/2003 12:00 AM CDT [id number] >> RIVKA CARMONA Fri November 07, 2003 10:23 AM >> CALL RECEIVED. Contact: Indicated that an exam is needed, can you provide 3 months in the meantime? Source: [facility] Document Id: [id number] documented in this encounter Plan of Treatment Not on filedocumented as of this encounter Visit Diagnoses Not on filedocumented in this encounter
--- OUTSIDE RECORDS SUMMARY | 2022-04-25 16:15 | XMS_ITS | Encounter Summary ---
:1975 Author Organization [facility] Address [address] [place] [address] Care Team Providers Name Role Phone Unavailable Primary Care Provider Unavailable Encounter Details Date Type Department Care Team Description 03/05/2004 Hospital Encounter [facility] Klayn Stafford M.D. [address] [place], [place] [phone] (Wo rk) Social History Tobacco Use Types Packs/Day Years Used Date Smoking Tobacco: Never Assessed Sex Assigned at Date Recorded Not on file documented as of this encounter Progress Notes Conversion, Historical Provider Ser - 03/05/2004 2:00 PM CDT [id number] Hue is a 29 year old here for her annual exam. Obstetric History The patient has not been aske d about . On mircette for dysmenorrheaGyn HX: no abnormal paps. 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 Comment: cleft mitral valve CELLULITIS OF LEG 01/15/00 Comment: L lower legPAST SURGICAL HISTORY: Review of patient's pas t surgical history indicates: RW GENERAL SURG (ABSTRACTED) 01/15/00 Commen t: I & D w debridement, L thigh and leg cellulitis/abscessCURRENT MEDICATIONS: Curren t prescriptions:MIRCETTE OR TABS 1 TABLET DAILYALLERGIES: Quinolones, Bees, ChloramphenicolFAMI LY HX: Review of patient's family history indicates: Cancer Maternal Aunt Comment: breast Thyroid Maternal Aunt Comment: arianne nieto maternal auntsROS: REVIEW OF SYSTEMS:NEUROLOGIC: NegativeEYES: NegativeENT: NegativeGI : NegativeBREAST: NegativeGU: NegativeGYN: NegativeCV: NegativePULMONARY: ? more SOB in th e last yr, ?more SOB at night.MUSCULOSKELETAL: NegativePSYCH: NegativeSOCIAL HISTORY: Social History Marital Status: Single Spouse Name: Years of Education: Number of children: 0 Social History Main Topics Tobacco Use: Never Alcohol Use: Yes Comment: special occasion Drug Use: No Sexually Ac tive: Yes Partners with: MaleOther Topics ConcernSLEEP CONCERN N oSTRESS CONCERN NoWEIGHT CONCERN NoEXERCISE YesSEAT BELT YesSELF EXAMS NoSocial History Narrative None on fileHEALTH HABITS: last dT unsure, last lipids > 5 yrs, last mammogram N/S and was normal, last pap 2002 and was normal, last eye exam was Q 2 yrs, last dental exam was Q 6 monthsPHYSICAL EXAM: This is a well-developed, well -nourished female in no apparent distress.ENT: ENT exam normal, no neck nodes or sinus tenderness.N DARIN: Supple, no adenopathy and thyroid normal.LUNGS: Normal - CTA without rales, rhonchi, or wheezin g..HEART: Regular rate, rhythm and Gr / holosystolic murmur at LSB.BREASTS: No masses, skin, ni pple or axillary changes.ABDOMEN: Benign, Soft, flat, non-tender, No masses, organomegaly, No inguin al nodes and Bowel sounds normoactive.PELVIC EXAM:Lymph: no enlarged groin nodesExternal genitlai a: normal development, normal BUS, no lesionsPerineum: normal skin, no lesions, good supportUrethra meatus: normal , no lesion or caruncleUrethra: normal, nontenderBladder: nontender, no masses, not enlargedVagina:normal mucosa and ruggae, no lesions not atrophic. very small introitusCervix:primi parous and no lesionsUterus: smooth, firm, mobile, without irregularities ltd due to pt lack of coop eration, not grossly enlargedAdnexa: not palpableRV: not indicatedRectum: no hemorrhoids, no bleed ingEXTREMITIES: Normal and Superficial Varicosities.NEUROLOGIC: Normal.SKIN: scattered benign nev iASSESSMENT AND PLAN: 1.Annual Dry Sander exam in never sexually active female, on Mircette for dysmenorrh ea2. high functioning Down's3. history of ASD and cleft mitral valve per history in chart. Pt comp lains of more SOB in the last yr.Health maintenance includes: mammogram, fasting lipid profile and will check on dT status. REfilled Mircette.Consult internal medicine ? need for another echoPt h ere with personal care attendantnext pap in 2 yrs, earlier if sexaually active. Source: [facility] RWHXTRANSXSYS Document Id: [id number] documented in this encounter Plan of Treatment Not on filedocumented as of this encounter Visit Diagnoses Not on filedocumented in this encounter
--- OUTSIDE RECORDS SUMMARY | 2022-04-25 16:15 | XMS_ITS | Encounter Summary ---
:1975 Author Organization [facility] Address [address] [place] [address] Care Team Providers Name Role Phone Unavailable Primary Care Provider Unavailable Encounter Details Date Type Department Care Team Description 09/07/2004 Hospital Encounter [facility] Prasad Anaya M.D. [address] [place], [place] [phone] (Wo rk) Social History Tobacco Use Types Packs/Day Years Used Date Smoking Tobacco: Never Assessed Sex Assigned at Date Recorded Not on file documented as of this encounter Progress Notes Prasad Anaya M.D. - 09/07/2004 9:30 AM CST [id number] Comment: Franchise Broker SUBJECTIVE: Hue returns to clinic today for follow up of her wax impaction. It was bilateral andshe was instructed to use some ceruminolytics for a couple weeks which she has been doing. No complaints today. OBJECTIVE: On examination. Otoscopic - the right canal shows some scant cerumen which is debrided. The tympanic membrane is healthy and mobile. The left canal shows complete medial impaction with cerumen. Under loupe illumination, suction debridement is attempted but the plug is larger than the medial canal. Forceps debridementis unsuccessful. Will need to continue with some drops. ASSESSMENT: 1. Persistent left cerumen impaction, again failed debridement. Will continue with some ceruminolytic drops in the left for another couple weeks after partial debridement today. PLAN: 1. I will see her back in 3 to 4 weeks. Prasad Anaya M.D., [facility]/shabnam Source: [facility] RWMCHXTRANSXRTFSYS Document Id: [id number] documented in this encounter Plan of Treatment Not on filedocumented as of this encounter Visit Diagnoses Not on filedocumented in this encounter
--- OUTSIDE RECORDS SUMMARY | 2022-04-25 16:15 | XMS_ITS | Encounter Summary ---
:1975 Author Organization [facility] Address [address] [place] [address] Care Team Providers Name Role Phone Unavailable Primary Care Provider Unavailable Encounter Details Date Type Department Care Team Description 12/06/2002 Hospital Encounter H[facility] Kalyn Stafford M.D. [address] [place], [place] [phone] (Wo rk) Social History Tobacco Use Types Packs/Day Years Used Date Smoking Tobacco: Never Assessed Sex Assigned at Date Recorded Not on file documented as of this encounter Progress Notes Conversion, Historical Provider Ser - 12/06/2002 4:15 PM CDT [id number] Hue is a 27 year old here for her annual exam. Obstetric History The patient has not been aske d about . using none for contraception. 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 Vigil S: Quinolones, Bees, ChloramphenicolFAMILY HX: Review of patient's family history indicates: Canc er Maternal Aunt Comment: breast Thyroid Maternal Aunt Comment: several maternal auntsROS: REVIEW OF SYSTEMS:NEUROLOGIC: NegativeEYES: NegativeENT: NegativeGI: NegativeBREAST: NegativeGU: NegativeGYN: Negative CV: Negative except above.PULMONARY: Negative except cough, no shortness of breath.MUSCULOSKELETA L: NegativePSYCH: NegativeSOCIAL HISTORY: Social History Marital Status: Single Spouse Name: Years of Education: Number of children: 0 Social History Main Topics Tobacco Use: Never Alcohol Use: Yes Comment: sp ecial occasion Drug Use: Not Asked Sexually Active: Yes Partners with: MaleOt her Topics ConcernSLEEP CONCERN NoSTRESS CONCERN NoWEIGHT CONCERN NoEXERCISE YesSEAT BELT YesSELF EXAMS NoSocial History Narrative None on fileHEALTH HABITS: calcium intake excellent, last dT age 19, last lip ids never done, last mammogram N/A and was normal, last pap 2001 and was normal, last eye exam was un known, last dental exam was every yearPHYSICAL EXAM: This is a well-developed, well-nourished femal e in no apparent distress.ENT: ENT exam normal, no neck nodes or sinus tenderness.NECK: Supple, no adenopathy and thyroid normal.LUNGS: Normal - CTA without rales, rhonchi, or wheezing..HEART: Regul ar rate, rhythm and grade III systolic murmur.BREASTS: No masses, skin, nipple or axillary changes. ABDOMEN: Benign, Soft, flat, non-tender, No masses, organomegaly and No inguinal nodes.GYNECOLOGIC EXAM:Equipment Manager Exam:Lymph: no enlarged groin nodesExternal genitlaia: normal development, normal BUS, no lesions and small introitus, hymen intact with opening admitting pinky fingerPerineum: normal skin, no lesions, good supportUrethra meatus: normal , no lesion or caruncleUrethra: normal, nontender, nl cystocele, nl pelvic muscle toneBladder: nontender, no masses, not enlargedVagina:normal mucosa and rugaeCervix:primiparousUterus: smooth, firm, mobile, without irregularitiesAdnexa: not palpabl eRV: not indicatedRectum: no hemorrhoids, no bleedingEXTREMITIES: left inner calf with warmth, no erythema, some varicose vv, non thrombosed. corn on right 5th toe.NEUROLOGIC: Normal.ASSESSMENT AN D PLAN: Annual Equipment Manager exam. Down's syndrome, high functioning, lives independently. Never sexually activ ecorn on toe?evolving superficial thrombophlebitisnew cough - on vacation and at work.Health mary ntenance includes: pap smear done today and declined cholesterol, needs eye exam. Hot packs, Ibuprofe n prn to left legrf Bandarly needs pap Q 3 yrs unless becomes sexually active. Quick Note by: RACHEAL YOU on 12/10/02 at 12:45 PM. happy pap sent Quick Note by: RACHEAL YOU on 12/10/02 at 12:46 PM. happy pap sent Source: [facility] Document Id: [id number] documented in this encounter Miscellaneous Notes Miscellaneous - Conversion, Historical Provider Ser - 12/06/2002 4:15 PM CDT [id number] Hue Medina [facility] [address] [place] [address] December 10, 2002 Dear Hue Medina, I am happy to inform you that your recent cervical cancer screening test (PAP smear) was normal. Preventative screening such as this helps insure your health for years to come. Congratulations for taking care of yourself! Please contact my office if you have any further questions. [phone]. Sincerely, Marie Kim M.D. [facility] Source: [facility] Document Id: [id number] Miscellaneous - Conversion, Historical Provider Ser - 12/06/2002 4:15 PM CDT [id number] Hue Medina [facility] [address] [place] [address] December 10, 2002 Dear Hue Medina, I am happy to inform you that your recent cervical cancer screening test (PAP smear) was normal. Preventative screening such as this helps insure your health for years to come. Congratulations for taking care of yourself! Please contact my office if you have any further questions. [phone]. Sincerely, Marie Kim M.D. [facility] Source: [facility] Document Id: [id number] documented in this encounter Plan of Treatment Not on filedocumented as of this encounter Visit Diagnoses Not on filedocumented in this encounter
--- OUTSIDE RECORDS SUMMARY | 2022-04-25 16:15 | XMS_ITS | Encounter Summary ---
:1975 Author Organization [facility] Address [address] [place] [address] Care Team Providers Name Role Phone Unavailable Primary Care Provider Unavailable Encounter Details Date Type Department Care Team Description 08/12/[address] [facility] Prasad Anaya M.D. [address] [place], [place] [phone] (Wo rk) Social History Tobacco Use Types Packs/Day Years Used Date Smoking Tobacco: Never Assessed Sex Assigned at Date Recorded Not on file documented as of this encounter Progress Notes Prasad Anaya M.D. - 08/12/2004 2:30 PM CST [id number] Comment: Lay Out Drafter SUBJECTIVE: Ms. Medina is a pleasant 29 year old Down's Syndrome woman who presents at the request ofDr. Garibay for evaluation of left otalgia and cerumen impaction. Hue really doesn't have any complaints today. She denies hearing loss or ear pain. Denies drainage. Denies sinonasal symptoms. She was recently on Amoxicillin from Dr. Garibay. No history of PE tubes or recent ear disease. REVIEW OF SYSTEMS: Constitutional - negative. Respiratory - negative. Cardiovascular - negative. 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 Vitals: B/P: 110/70 T: 97.4 P: 74 Eulalio: Bilateral complete cerumen impaction in the medial canal. The canal permits a 4 mm speculum. Both medial canals are completely occluded by firm cerumen. The right is successfully debrided with a curette. The left is too firmly impacted. The right tympanic membrane is healthy and mobile. Nose: patent, healthy mucosa. She has a small fissure in the right anterior nostril. Mild left septal deflection. Oral: Normal Oropharynx: Normal, some dry postnasal mucus Voice: N Neck: no lymphadenopathy, no masses Thyroid: Normal Salivary glands: Normal ASSESSMENT: 1. Bilateral cerumen impaction - needs some ceruminolytic drops in the left ear for a week or two tosoften this up and will re-attempt debridement at that time. 2. Nasal vestibular fissure - antibiotic prn. Prasad Anaya M.D., [facility]/shabnam CC: Dr. Garibay for review. Source: [facility] Document Id: [id number] Electronically signed by Conversion, [facility] Lay Out Drafter [id number] at 11/28/2016 10:43 PM CDT Conversion, Historical Provider Ser - 08/12/2004 2:30 PM CST [id number] There is no problem list on file for this patient. 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 CELLULITIS OF LEG 01/15/00 Comment: L lower leg Review of patient's past surgical history indicates: RW GENERAL SURG (ABSTRACTED) 01/15/00 Comment: I & D w debridement, L thigh and leg cellulitis/abscess Family History: Cancer Maternal Aunt Comment: breast Thyroid Maternal Aunt Comment: several maternal aunts Anesthesia No family hx of Blood Disease No family hx of Neurological No family hx of Review of patient's social history indicates: Tobacco Use: Never Alcohol Use: Yes Comment: special occasion No active medications on file as of 08/12/2004 Patient's allergies include: Quinolones, Bees, Chloramphenicol Source: [facility] Document Id: [id number] documented in this encounter Plan of Treatment Not on filedocumented as of this encounter Visit Diagnoses Not on filedocumented in this encounter
--- OUTSIDE RECORDS SUMMARY | 2022-04-25 16:15 | XMS_ITS | Encounter Summary ---
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
--- OUTSIDE RECORDS SUMMARY | 2022-04-25 16:15 | XMS_ITS | Encounter Summary ---
:1975 Author Organization [facility] Address [address] [place] [address] Care Team Providers Name Role Phone Unavailable Primary Care Provider Unavailable Encounter Details Date Type Department Care Team Description 07/30/2001 Hospital Encounter HX [facility] Frankie Seay M.D. [address] [place] [address] (Wo rk) Social History Tobacco Use Types Packs/Day Years Used Date Smoking Tobacco: Never Assessed Sex Assigned at Date Recorded Not on file documented as of this encounter Miscellaneous Notes Telephone Encounter - Conversion, Historical Provider Ser - 07/30/2001 12:00 AM CST [id number] >> MAX ARCE Mon Jul 30, 2001 1:28 PM >> CALL RECEIVED. Contact: refill RX please. Thank you Source: [facility] Document Id: [id number] documented in this encounter Plan of Treatment Not on filedocumented as of this encounter Visit Diagnoses Not on filedocumented in this encounter
--- OUTSIDE RECORDS SUMMARY | 2022-04-25 16:15 | XMS_ITS | Encounter Summary ---
:1975 Author Organization [facility] Address [address] [place] [address] Care Team Providers Name Role Phone Unavailable Primary Care Provider Unavailable Encounter Details Date Type Department Care Team Description 09/28/2001 Hospital Encounter HX NO MAPPING Provider, Historical Social History Tobacco Use Types Packs/Day Years Used Date Smoking Tobacco: Never Assessed Sex Assigned at Date Recorded Not on file documented as of this encounter Plan of Treatment Not on filedocumented as of this encounter Visit Diagnoses Not on filedocumented in this encounter
--- OUTSIDE RECORDS SUMMARY | 2022-04-25 16:15 | XMS_ITS | Encounter Summary ---
:1975 Author Organization [facility] Address [address] [place] [address] Care Team Providers Name Role Phone Unavailable Primary Care Provider Unavailable Encounter Details Date Type Department Care Team Description 10/24/2003 Hospital Encounter [facility] Marsha Garibay M.D. [address] [place], [place] [address] (Wo rk) Social History Tobacco Use Types Packs/Day Years Used Date Smoking Tobacco: Never Assessed Sex Assigned at Date Recorded Not on file documented as of this encounter Progress Notes Conversion, Historical Provider Ser - 10/24/2003 4:00 PM CDT [id number] Addended by: TIMOTHY AUGUSTE on: 10/29/2003,6:45 AM Comment: transcriptionModules accepted: Vidhi langston Macho presents today to have her small toe looked at on the right foot. The patient has a raised corn on the lateral portion of the toe and it is painful. She has been soaking it, has n't been doing anything else for it. She does wear high heels on occasion as well as boots. Usually she wears flip-flops.EXAMINATION:Patient is alert and oriented, pleasant and cooperative with exa m, no acute distress.Vitals - see nursing note.Examination of her foot does reveal a typical corn o n the lateral portion of her right 5th toe. This is pared down with a 15 [address] erile technique. The patient tolerated the procedure well. There were no complications. ASSESSME NT:Keller, right fifth toe.PLAN:This was pared down and she was instructed in the use of a pumice s tone and corn pad and should get roomier shoes. Follow-up PRN. Sridhar Garibay M.D./yarelisD: 23/10T: 10/28/03 Source: [facility] RWHXTRANSXSYS Document Id: [id number] documented in this encounter Plan of Treatment Not on filedocumented as of this encounter Visit Diagnoses Not on filedocumented in this encounter
--- OUTSIDE RECORDS SUMMARY | 2022-04-25 16:15 | XMS_ITS | Encounter Summary ---
:1975 Author Organization [facility] Address [address] [place] [address] Care Team Providers Name Role Phone Unavailable Primary Care Provider Unavailable Encounter Details Date Type Department Care Team Description 07/24/2002 Hospital Encounter HX [facility] Frankie Seay M.D. [address] [place] [address] (Wo rk) Social History Tobacco Use Types Packs/Day Years Used Date Smoking Tobacco: Never Assessed Sex Assigned at Date Recorded Not on file documented as of this encounter Miscellaneous Notes Telephone Encounter - Conversion, Historical Provider Ser - 07/24/2002 12:00 AM CST [id number] >> ROXY FOX Wed Jul 24, 2002 3:13 PM >> CALL RECEIVED. Contact: please fax, last phy 11/01/01 [facility] Document Id: [id number] documented in this encounter Plan of Treatment Not on filedocumented as of this encounter Visit Diagnoses Not on filedocumented in this encounter
--- OUTSIDE RECORDS SUMMARY | 2022-04-25 16:15 | XMS_ITS | Encounter Summary ---
:1975 Author Organization [facility] Address [address] [place] [address] Care Team Providers Name Role Phone Unavailable Primary Care Provider Unavailable Encounter Details Date Type Department Care Team Description 03/09/2004 Hospital Encounter HX [facility] Provider, Historic al Social History Tobacco Use Types Packs/Day Years Used Date Smoking Tobacco: Never Assessed Sex Assigned at Date Recorded Not on file documented as of this encounter Miscellaneous Notes Miscellaneous - Conversion, Historical Provider Ser - 03/09/2004 8:00 AM CDT [id number] Quick Note by: EMILY KIM on 03/09/04 at 10:15 AM. excellent lipids, normal glucose letter sent Source: [facility] Document Id: [id number] Miscellaneous - Emily Kim M.D. - 03/09/2004 8:00 AM CDT [id number] Hue Medina [address] [place] [address] March 09, 2004 Dear Hue: I am writing to inform you the results of the laboratory tests you had done during your recent visitto the clinic. The tests were all normal. The results of your recent lab(s) were: Your cholesterol results: CHOL 188 03/09/2004 desired less than 200 HDL 55 03/09/2004 desired greater than 35 (good cholesterol) LDL 105 03/09/2004 desired less than 130 (bad cholesterol) TRIG 141 03/09/2004 desired less than 150 Your glucose (blood sugar) value is: GLC 85 03/09/2004 Normal values are between 60 and 115. It was a pleasure to see you in the clinic. If you have any further questions or problems, please contact our office at [phone]. Sincerely, Emily Kim MD, HOME HEALTH PROVIDER Department [facility] Source: [facility] RWHXTRANSXRTFSYS Document Id: [id number] Electronically signed by Conversion, [facility] Bindery Operator [id number] at 11/28/2016 8:01 PM CDT documented in this encounter Plan of Treatment Not on filedocumented as of this encounter Visit Diagnoses Not on filedocumented in this encounter
--- OUTSIDE RECORDS SUMMARY | 2022-04-25 16:15 | XMS_ITS | Encounter Summary ---
:1975 Author Organization [facility] Address [address] [place] [address] Care Team Providers Name Role Phone Unavailable Primary Care Provider Unavailable Encounter Details Date Type Department Care Team Description 11/07/2001 Hospital Encounter [facility] Frankie Seay M.D. [address] [place], [place] [id number] (Wo rk) Social History Tobacco Use Types Packs/Day Years Used Date Smoking Tobacco: Never Assessed Sex Assigned at Date Recorded Not on file documented as of this encounter Miscellaneous Notes Telephone Encounter - Conversion, Historical Provider Ser - 11/07/2001 12:00 AM CDT [id number] >> QUINCY JULIEN MonNovember 09, 2001 11:23 AM OK - (faxed to [facility]) - Please let her know - KD >> ELAYNE ROMO MonNovember 09, 2001 11:07 AM will you ok cream so it can be faxed to [facility]. >> ROXY FOX [facility] November 08, 2001 11:17 AM tisha will contac hue mom to make sure of the medication for psoriasis and will let us know, the name of med from jenn[facility] was dovonex .005mg , apply ad directed >> KELLREYNA MENJIVARZ MonNovember 07, 2001 6:02 PM please call Tisha and tell her results were negative for stool - probable virus going around. I totally blanked on name of psoriasis cream - please call [facility] and ask what was previously given and refill for one year - thanks >> FRANCISCO JENSEN MonNovember 07, 2001 12:59 PM severino mother called and needs a refil for severino psoriasis. rx to [facility]. >> FRANCISCO JENSEN MonNovember 07, 2001 12:48 PM >> CALL RECEIVED. Contact: call [phone] with her stool sample results -to tisha maria de jesus. Source: [facility] RWHXTRANSXSYS Document Id: [id number] documented in this encounter Plan of Treatment Not on filedocumented as of this encounter Visit Diagnoses Not on filedocumented in this encounter
--- OUTSIDE RECORDS SUMMARY | 2022-04-25 16:15 | XMS_ITS | Encounter Summary ---
:1975 Author Organization [facility] Address [address] [place] [address] Care Team Providers Name Role Phone Unavailable Primary Care Provider Unavailable Encounter Details Date Type Department Care Team Description 11/05/2001 Hospital Encounter HX [facility] Frankie Seay M.D. [address] [place] [address] (Wo rk) Social History Tobacco Use Types Packs/Day Years Used Date Smoking Tobacco: Never Assessed Sex Assigned at Date Recorded Not on file documented as of this encounter Progress Notes Conversion, Historical Provider Ser - 11/05/2001 12:00 AM CDT [id number] Quick Note by: KELL MA on 11/07/01 at 5:05 PM. will notify her mother Source: [facility] Document Id: [id number] documented in this encounter Plan of Treatment Not on filedocumented as of this encounter Visit Diagnoses Not on filedocumented in this encounter
--- OUTSIDE RECORDS SUMMARY | 2022-04-25 16:15 | XMS_ITS | Encounter Summary ---
:1975 Author Organization [facility] Address [address] [place] [address] Care Team Providers Name Role Phone Unavailable Primary Care Provider Unavailable Encounter Details Date Type Department Care Team Description 11/07/2001 Hospital Encounter HX [facility] Frankie Seay M.D. [address] [place] [address] (Wo rk) Social History Tobacco Use Types Packs/Day Years Used Date Smoking Tobacco: Never Assessed Sex Assigned at Date Recorded Not on file documented as of this encounter Miscellaneous Notes Telephone Encounter - Conversion, Historical Provider Ser - 11/07/2001 12:00 AM CDT [id number] >> FRANCISCO JENSEN Fri Jan 11, 2002 1:28 PM >> CALL RECEIVED. Contact: Source[facility] Document Id: [id number] documented in this encounter Plan of Treatment Not on filedocumented as of this encounter Visit Diagnoses Not on filedocumented in this encounter
--- OUTSIDE RECORDS SUMMARY | 2022-04-25 16:15 | XMS_ITS | Encounter Summary ---
:1975 Author Organization [facility] Address [address] [place] [address] Care Team Providers Name Role Phone Unavailable Primary Care Provider Unavailable Encounter Details Date Type Department Care Team Description 05/28/2003 Hospital Encounter [facility] Provider, Renny avila Social History Tobacco Use Types Packs/Day Years Used Date Smoking Tobacco: Never Assessed Sex Assigned at Date Recorded Not on file documented as of this encounter Plan of Treatment Not on filedocumented as of this encounter Visit Diagnoses Not on filedocumented in this encounter
--- OUTSIDE RECORDS SUMMARY | 2022-04-25 16:15 | XMS_ITS | Encounter Summary ---
:1975 Author Organization [facility] Address [address] [place] [address] Care Team Providers Name Role Phone Unavailable Primary Care Provider Unavailable Encounter Details Date Type Department Care Team Description 02/11/2002 Hospital Encounter HX [facility] Frankie Seay M.D. [address] [place] [address] (Wo rk) Social History Tobacco Use Types Packs/Day Years Used Date Smoking Tobacco: Never Assessed Sex Assigned at Date Recorded Not on file documented as of this encounter Miscellaneous Notes Telephone Encounter - Conversion, Historical Provider Ser - 02/11/2002 12:00 AM CDT [id number] >> ELAYNE ROMO MonFeb 11, 2002 8:19 AM >> CALL RECEIVED. Contact: Accepting this Rx will FAX it directly to the pharmacy. [facility] Document Id: [id number] documented in this encounter Plan of Treatment Not on filedocumented as of this encounter Visit Diagnoses Not on filedocumented in this encounter
--- OUTSIDE RECORDS SUMMARY | 2022-04-25 16:15 | XMS_ITS | Encounter Summary ---
:1975 Author Organization [facility] Address [address] [place] [address] Care Team Providers Name Role Phone Unavailable [...]
--- OUTSIDE RECORDS SUMMARY | 2022-04-25 16:15 | XMS_ITS | Encounter Summary ---
:1975 Author Organization [facility] Address [address] [place] [address] Care Team Providers Name Role Phone Unavailable Primary Care Provider Unavailable Encounter Details Date Type Department Care Team Description 07/06/2004 Hospital Encounter HX [facility] Kalyn Stafford M.D. [address] [place], [place] [phone] (Wo rk) Social History Tobacco Use Types Packs/Day Years Used Date Smoking Tobacco: Never Assessed Sex Assigned at Date Recorded Not on file documented as of this encounter Miscellaneous Notes Telephone Encounter - Conversion, Historical Provider Frank - 07/06/2004 12:00 AM CST [id number] >> SESAR Rick Jul 06, 2004 11:48 AM Accepting this Rx will FAX it directly to the pharmacy. [facility] Document Id: [id number] documented in this encounter Plan of Treatment Not on filedocumented as of this encounter Visit Diagnoses Not on filedocumented in this encounter
--- OUTSIDE RECORDS SUMMARY | 2022-04-25 16:15 | XMS_ITS | Encounter Summary ---
:1975 Author Organization [facility] Address [address] [place] [address] Care Team Providers Name Role Phone Unavailable Primary Care Provider Unavailable Encounter Details Date Type Department Care Team Description 10/09/2003 Hospital Encounter HX [facility] Marsha Garibay M.D. [address] [place], [place] [address] (Wo rk) Social History Tobacco Use Types Packs/Day Years Used Date Smoking Tobacco: Never Assessed Sex Assigned at Date Recorded Not on file documented as of this encounter Progress Notes Conversion, Historical Provider Ser - 10/09/2003 3:45 PM CDT [id number] Sudden onset of sore throat x 1 days. (Pt. must have sore throat then if c/o other Sx is OK to follow protocol): NoHistory of fever: NoComplains of swollen glands: NoComplains of swollen tonsils: YesComplains of headache: NoTRIAGE:If the patient answers yes to any of the following question s, advise on home remedies or see MD if indicated.Rhinorrhea: NoCough: NoHoarseness: NoD iarrhea: no.COMPLICATING FACTORS: (if yes, patient must see MD).Serious symptoms (trouble bobo thing, drooling, inability to swallow liquids). NoHistory of RF: NoPt. on chemotherapy/or immunosuppressed: NoInsulin Dependent Diabetes: No: NoPatient on antibiotics: NoS ore throat > 5 days: NoReoccurrence of symptoms within 7 days of being treated for strep: NoOBJ ECTIVE:Red, inflammed throat: Tonsillar exudate: Tender anterior cervical nodes: Petechiae on soft palate: Source: [facility] RWHXTRANSXSYS Document Id: [id number] documented in this encounter Plan of Treatment Not on filedocumented as of this encounter Visit Diagnoses Not on filedocumented in this encounter
--- OUTSIDE RECORDS SUMMARY | 2022-04-25 16:15 | XMS_ITS | Encounter Summary ---
:[address] [facility] Address [address] [place] [address] Care Team Providers Name Role Phone Unavailable Primary Care Provider Unavailable Encounter Details Date Type Department Care Team Description 10/04/2002 Hospital Encounter HX [facility] Amber Lopes, RMichaelN. [address] [place], [place] [phone] Social History Tobacco Use Types Packs/Day Years Used Date Smoking Tobacco: Never Assessed Sex Assigned at Date Recorded Not on file documented as of this encounter Miscellaneous Notes Telephone Encounter - Conversion, Historical Provider Ser - 10/04/2002 12:00 AM CDT [id number] >> KIESHA CASTILLO Mon Oct 07, 2002 9:36 AM faxed >> RIVKA CARMONA Fri Oct 04, 2002 10:01 AM >> CALL RECEIVED. Contact: Kathy patient, indicated that an exam is due. Will you refills 3 months worth? Accepting this Rx will FAX it directly to the pharmacy. [facility] Document Id: [id number] documented in this encounter Plan of Treatment Not on filedocumented as of this encounter Visit Diagnoses Not on filedocumented in this encounter
--- OUTSIDE RECORDS SUMMARY | 2022-04-25 16:16 | XMS_ITS | Encounter Summary ---
:1975 Author Organization [facility] Address [address] [place] [address] Care Team Providers Name Role Phone Unavailable Primary Care Provider Unavailable Encounter Details Date Type Department Care Team Description 03/19/2001 Hospital Encounter [facility] Osvaldo Mayen M.D. Social History Tobacco Use Types Packs/Day Years Used Date Smoking Tobacco: Never Assessed Sex Assigned at Date Recorded Not on file documented as of this encounter Progress Notes Conversion, Historical Provider Ser - 03/19/2001 4:15 PM CDT [id number] Addended by: OSVALDO MAYEN on: 03/28/2001,8:38 AMModules accepted: Progress NotesAddended by: MICHELLE GUSMAN on: 03/27/2001,9:33 AM Comment: TranscriptionModules accepted: Progress Notesnote d ictated.Hue is in today for a recheck of the area of cellulitis on the right medial calf. I di d have an ultrasound done today as well and it shows that the deep venous system and the superficial venous system are widely patent with no evidence of thrombosis. The areas that were somewhat tender last week were ultrasounded and there is no evidence of fluid accumulation and really no discreet are as of concern or anything that would suggest for instance a hematoma that has become infected. In regards to Hue, she states she is feeling much, much better. There is minimal pain over this medi al calf site and she is doing daily activities without any problem. She continues on her Augmentin a nd has about 2 days left.ON EXAMINATION: The areas of cellulitis are completely resolved. There is still some of this firm, full type areas on the medial aspect of the thigh but they are significantl y smaller. There is no fluctuance. There is minimal tenderness. I did discuss with Hue and her father today the unknown etiology of this cellulitis. I am concerned that there may be some sort of septic embolic events going on. I did look in her mouth today and all of her teeth seem to be in go od repair with no tenderness as I touched each tooth. Her tonsils are somewhat big and I did have Dr iMchael Anaya come in and do a full ENT exam and please see the details of his note, but essentially he fel t the tonsils although somewhat large show no signs of active infection or abscess. He felt that thi s probably wasn't the source of some sort of septic emboli. I also listened to her heart and she shook s have a significant murmur and she does have known atrial septal defects and valvular abnormalities related to her Down's Syndrome. We also discussed her Depo Provera shots and these are done about ev estephanie 3 months. These are usually in the buttock region. Again, no IV drug abuse. At this time, I do believe evaluation for embolic complications are warranted and I have scheduled her for a 2-D echo of the heart to make sure she doesn't have any valve vegetations. She also will check in with Dr. Hudson golden after this study is done. She was reminded as was her father that any dental procedures need to be preceded with aggressive antibiotic therapy and she does have a regimen for this. I told her t o continue to observe the area of cellulitis and if it recurs over the next few days, especially afte r the antibiotics are finished, she should call me immediately and we will restart her antibiotics. All questions they had were asked and answered. She will follow up with me on a prn basis.CC: Dr. Ortiz for review. Osvaldo Mayen M.D./Kendall: 03/19/2001T: 03/27/2001 Source: [facility] RWHXTRANSXSYS Document Id: [id number] documented in this encounter Plan of Treatment Not on filedocumented as of this encounter Visit Diagnoses Not on filedocumented in this encounter
--- OUTSIDE RECORDS SUMMARY | 2022-04-25 16:16 | XMS_ITS | Encounter Summary ---
:1975 Author Organization [facility] Address [address] [place] [address] Care Team Providers Name Role Phone Unavailable Primary Care Provider Unavailable Encounter Details Date Type Department Care Team Description 03/19/2001 Hospital Encounter [facility]X [facility] Osvaldo Harris M.D. Social History Tobacco Use Types Packs/Day Years Used Date Smoking Tobacco: Never Assessed Sex Assigned at Date Recorded Not on file documented as of this encounter Plan of Treatment Not on filedocumented as of this encounter Visit Diagnoses Not on filedocumented in this encounter
--- OUTSIDE RECORDS SUMMARY | 2022-04-25 16:16 | XMS_ITS | Encounter Summary ---
:1975 Author Organization [facility] Address [address] [place] [address] Care Team Providers Name Role Phone Unavailable Primary Care Provider Unavailable Encounter Details Date Type Department Care Team Description 03/13/2001 Hospital Encounter [facility]X [facility] Sravani Ortiz M.D., M.H.A. [address] [place] [phone] (Wo rk) Social History Tobacco Use Types Packs/Day Years Used Date Smoking Tobacco: Never Assessed Sex Assigned at Date Recorded Not on file documented as of this encounter Progress Notes Conversion, Historical Provider Ser - 03/13/2001 3:40 PM CDT [id number] Addended by: MICHELLE BRASHER on: 03/21/2001,11:21 AM Comment: TranscriptionModules accepted: Pro mcmillan NotesThe patient comes in accompanied by her mother. The patient has Down's syndrome. She l scott by herself in [place] and her parents live in [place]. She was visiting them over the [employer] kend on Monday and the mother noticed some swelling of the right foot area and she noticed some red ness over the right leg area on the lower part medially, so they are here to check on this problem. S yessica last year, the patient was treated for cellulitis and abscess formation over the left thigh and leg area. The patient did not have any right foot injury. She denies any pain symptoms. She has no diabetes. No fever or chills. No thigh pain. The patient has no complaints over left lower extrem ity.MEDICATIONS: The patient on cycle control on Mircette medication as per Epic. No other medicin es.ALLERGIES: Allergies to Quinolone.PHYSICAL EXAMINATION: BP normal. Pulse 92, afebrile. Lower extremity exam - There is slight redness and induration of the right lower leg over the anteromedial part of the lower part of the leg. The induration is about 2 x 1 inch in size and tender to touch. No open sore of the skin. There is surrounding erythema around this area and minimal swelling. The rest of the leg exam and the thighs were negative. The area of the induration and erythema were mar ked. The patient has no calf pain, tenderness or color change. No signs of DVT.IMPRESSION:1. Rig ht lower leg erythema and induration, possible localized cellulitis.2. The patient has no pain sympt oms. She doesn't think she needs anti-inflammatory medication. We will go ahead with antibiotic ther apy. No problem from penicillin. She was given Augmentin 875 mg BID for 10 days. Will follow up [facility] in 48 hours. Meanwhile, if the patient has any worsening symptoms or new complaint s, come to the clinic or hospital for check-up.Clinically no signs of blood clotting problem. The patient was advised to stop the hormonal replacement therapy until this episode resolves completely, and to consider further discussion about the hormonal replacement therapy with a Gig Tender. If sh emilio has any questions, to let me know. Anjali Ortiz M.D./Kendall: 03/13/2001T: 03/21/2001 Source: [facility] RWHXTRANSXSYS Document Id: [id number] documented in this encounter Plan of Treatment Not on filedocumented as of this encounter Visit Diagnoses Not on filedocumented in this encounter
--- OUTSIDE RECORDS SUMMARY | 2022-04-25 16:16 | XMS_ITS | Encounter Summary ---
:1975 Author Organization [facility] Address [address] [place] [address] Care Team Providers Name Role Phone Unavailable Primary Care Provider Unavailable Encounter Details Date Type Department Care Team Description 02/06/2001 Hospital Encounter HX NO MAPPING Mina Hunt M.D. [address] [phone] Social History Tobacco Use Types Packs/Day Years Used Date Smoking Tobacco: Never Assessed Sex Assigned at Date Recorded Not on file documented as of this encounter Plan of Treatment Not on filedocumented as of this encounter Visit Diagnoses Not on filedocumented in this encounter
--- OUTSIDE RECORDS SUMMARY | 2022-04-25 16:16 | XMS_ITS | Encounter Summary ---
:1975 Author Organization [facility] Address [address] [place] [address] Care Team Providers Name Role Phone Unavailable Primary Care Provider Unavailable Encounter Details Date Type Department Care Team Description 04/09/2001 Hospital Encounter HX [facility] Yumi Calixto R.N. [address] [place] [phone] Social History Tobacco Use Types Packs/Day Years Used Date Smoking Tobacco: Never Assessed Sex Assigned at Date Recorded Not on file documented as of this encounter Miscellaneous Notes Telephone Encounter - Conversion, Historical Provider Ser - 04/09/2001 12:00 AM CDT [id number] Addended by: MELI HERRERA on: 04/10/2001,11:16 AMModules accepted: Progress Notes>> TONY Rick Apr 10, 2001 11:10 AMI reviewed the echo with Dr. Felipe and no further recommendations just to continue SBE prophylaxis and repeat echo in one year and this message was called to the pt's mother . >> YUMI THORNTON [facility] Apr 09, 2001 12:01 PM>> CALL RECEIVED. Contact: MOM TIN [phone] TING TO HERE ECHO RESULTS( YOU WERE GOING TO SPEAK TO DR FELIPE FIRST?) [facility] Document Id: [id number] documented in this encounter Plan of Treatment Not on filedocumented as of this encounter Visit Diagnoses Not on filedocumented in this encounter
--- OUTSIDE RECORDS SUMMARY | 2022-04-25 16:16 | XMS_ITS | Encounter Summary ---
:[address] [facility] Address [address] [place] [address] Care Team Providers Name Role Phone Unavailable Primary Care Provider Unavailable Encounter Details Date Type Department Care Team Description 03/21/2001 Hospital Encounter HX NO MAPPING Osvaldo Harris M.D. Social History Tobacco Use Types Packs/Day Years Used Date Smoking Tobacco: Never Assessed Sex Assigned at Date Recorded Not on file documented as of this encounter Plan of Treatment Not on filedocumented as of this encounter Visit Diagnoses Not on filedocumented in this encounter
--- OUTSIDE RECORDS SUMMARY | 2022-04-25 16:16 | XMS_ITS | Encounter Summary ---
:1975 Author Organization [facility] Address [address] [place] [address] Care Team Providers Name Role Phone Unavailable Primary Care Provider Unavailable Encounter Details Date Type Department Care Team Description 03/27/2001 Hospital Encounter [facility]X [facility] Sravani Ortiz M.D., M.H.A. [address] [place] [phone] (Wo rk) Social History Tobacco Use Types Packs/Day Years Used Date Smoking Tobacco: Never Assessed Sex Assigned at Date Recorded Not on file documented as of this encounter Progress Notes Conversion, Historical Provider Ser - 03/27/2001 3:20 PM CDT [id number] Addended by: MICHELLE BRASHER on: 04/03/2001,8:53 AM Comment: TranscriptionModules accepted: Prog ress NotesThe patient comes in for follow-up of her right leg cellulitis. She is accompanied by he r father. These notes were reviewed. Also, she had ultrasound on the right leg last week which was negative for DVT or superficial phlebitis. With the Augmentin therapy, the patient's symptoms resolv ed. She has no pain or swelling or redness over right leg area.ON EXAMINATION: Right leg are no t enderness, which is good. The patient had a 2-D echocardiogram last week. I have the report availab le. This was reviewed with the patient's father. Patient has AV canal defect. Normal global LV sys tolic function. Left anterior mitral valve leaflet. Her pulmonary artery systolic pressure WNL. 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 VSD with left to right shunt with gradie nt of 100 mm/Hg.I am going to review this echo with Dr. Penelope Stanton to see if she has a recommend ation. For now, we need to renew antibiotic therapy. The patient should be on SBE prophylaxis. If s he has recurrent symptoms or new complaints, let us know. Anjali Ortiz M.D./Kendall: 03-27-01T: 04-02-01 Source: [facility] RWHXTRANSXSYS Document Id: [id number] documented in this encounter Plan of Treatment Not on filedocumented as of this encounter Visit Diagnoses Not on filedocumented in this encounter
--- OUTSIDE RECORDS SUMMARY | 2022-04-25 16:16 | XMS_ITS | Encounter Summary ---
:1975 Author Organization [facility] Address [address] [place] [address] Care Team Providers Name Role Phone Unavailable Primary Care Provider Unavailable Encounter Details Date Type Department Care Team Description 03/15/2001 Hospital Encounter [facility] Osvaldo Mayen M.D. Social History Tobacco Use Types Packs/Day Years Used Date Smoking Tobacco: Never Assessed Sex Assigned at Date Recorded Not on file documented as of this encounter Progress Notes Conversion, Historical Provider Ser - 03/15/2001 4:00 PM CDT [id number] Addended by: OSVALDO MAYEN on: 03/23/2001,8:53 AMModules accepted: Progress NotesAddended by: VIDA MATTHEW on: 03/22/2001,1:01 PM Comment: Drink Mixer documentation.Modules accepted: Stacey ward Notesnote dictated.This is a consult from Dr. Ortiz. Hue is a very pleasant 26 y/o female who is brought in by her mother today. Hue is a patient with Down's syndrome who is extremely f unctional. Recently she is visiting her mother and complained of some medial calf pain on the right side. It has been present for about a week or so. She did see Dr. Ortiz, and he appreciated a lit tle bit of redness and some tenderness in this area. He placed her on Augmentin. She has been on th is for two days. Per mom and patient, the patient has had no inability to walk. The area tenderness is not exacerbated by walking. She has had no fevers, no chills. No change in appetite. Of note-- she did have a surgical procedure on the medial aspect of the left thigh apparently for an infection. It sounds like a hematoma that was infected. I do not have the chart available at this time.Toherminio y on EXAMINATION she is afebrile. On the medial aspect of the right lower leg over the distribution of the greater saphenous vein is a ropey tenderness and firmness. There seems to be some bruising ar ound this area. There is no blatant cellulitis. There is no fluctuance of these masses. The larges t area is on the distal portion of the leg and is probably 2 x 2 cm round. There is an area just blane ewhat cranial to this, again about a cm x a cm. The larger one is more tender. The calf is soft. T here is no increase in pain with plantar or dorsiflexion. There is no adenopathy behind the knee or in the groin. There are no signs of ascending lymphangitis. No cuts on the toes. ASSESSMENT AND PLAN: Right medial calf tenderness. Suspect superficial thrombophlebitis of the greater saphenous v ein. Patient is on Augmentin. She can continue this given her history of infections with a previous left lower extremity lump. I do not think that this represents a deep-seated infection. There is n o fluctuance. There is no redness, and there is no fever. At this time I advised antiinflammatory m edication for the pain, warm compresses for comfort. Mom and daughter will be traveling out of town this weekend. They are to seek medical attention immediately if there is increased redness, drainage , fevers, chills or loss of appetite. I did offer ultrasound today, but at this time they wish to wa it, and I will have that area ultrasounded on Monday just to see the consistency of these lumpy area s. If there is fluid appreciated in these nodules at that time, we can talk about needle aspiration, but I really don't think there is any fluid in there. All questions addressed and answered, and the y agree to the above plan. Osvaldo Mayen M.D./rvD: 03/15/2001 Source: [facility] RWHXTRANSXSYS Document Id: [id number] documented in this encounter Plan of Treatment Not on filedocumented as of this encounter Visit Diagnoses Not on filedocumented in this encounter
[2022-04-25 21:49] LABS: Basophils Absolute Auto 0.02 K/uL (0.00-0.30); Basophils Percent Auto 0.4 % (0.0-3.0); Eosinophils Absolute Auto 0.04 K/uL (0.00-0.50); Eosinophils Percent Auto 0.8 % (0.0-7.0); Hematocrit 39.7 % (33.0-51.0); Hemoglobin* 12.8 gm/dL (12.0-16.0); Immature Granulocytes Abs Auto 0.02 K/uL (0.00-0.30); Lymphocytes Percent Auto 17.1 % (20-44); Mean Corpuscular HGB Conc 32 gm/dL (32-36); Mean Corpuscular Hemoglobin 33 pg (26-34); Mean Corpuscular Volume 101 fL (80-100); Monocytes Percent Auto 5.2 % (0.0-11.0); Neutrophils Percent Auto 76.1 % (42.0-72.0); Platelet Count* 154 K/uL (140-440); RDW Coefficient of Variation % 14.1 % (11.5-15.5); Red Blood Count 3.94 m/uL (4.00-5.20); White Blood Count* 4.96 K/uL (4.50-11.00)
[2022-04-25 21:53] LABS: Slide Review Reflex No
[2022-04-25 22:08] LABS: NT Pro B Type NatriureticPept* 315 PG/mL (0-125)
== END 2022-04-25 15:50 | disposition home or self-care (01) ==
LOC: KYNREF 15:50
PROVIDERS: PCP Nurse Practitioner Family; Visit Provider Nurse Practitioner Family
DX: R06.2 Wheezing (principal); R05.9 Cough, unspecified
CPT/HCPCS: 36415; 83880; 85025

== ENCOUNTER 2022-05-25 20:52 | Outpatient (CLI) | payer OTHER, SELFPAY ==
--- OUTSIDE RECORDS SUMMARY | 2022-05-25 20:55 | XMS_ITS | Encounter Summary ---
:1975 Author Organization [facility] Address [address] [place] [id number] Care Team Providers Name Role Phone Aura Sandhu APRN C.N.PMichael, D.N.P. Primary Care Provider Reason for Referral Outpatient (Routine) - Closed Specialty Diagnoses / Procedures Referred By Contact Refer red To Contact Diagnoses Defect Atrial Ventricular Canal Complete (HCC) Mike Ornelas, [place] Procedures Echo Transthoracic (TTE) - Adult Congenital Kenyon, M.P.H. [address] [place] [address] Referral ID Status Reason Start Date Expiration Date Visits Requ ested Visits Authorized [id number] Closed 05/03/2022 05/03/2023 1 1 UCT SALES REPRESENTATIVE Reason for Visit Outpatient (Routine) - Closed Specialty Diagnoses / Procedures Referred By Contact Refer red To Contact Diagnoses Defect Atrial Ventricular Canal Complete (HCC) Mike Ornelas, [place] Procedures Echo Transthoracic (TTE) - Adult Congenital Kenyon, M.P.H. [address] [place], [place] [phone] Referral ID Status Reason Start Date Expiration Date Visits Requ ested Visits Authorized [id number] Closed 05/03/2022 05/03/2023 1 1 Encounter Details Date Type Department Care Team Description 05/05/2022 Hospital Department of [place], Mike Ojeda Atri al Encounter Cardiovascular C, StephenS., Ventricular C anal Diseases in [place], .P.H. Complete ([facility]) [place] [address] [facility] 200 [place] [phone] Social History Tobacco Use Types Packs/Day Years Used Date Smoking Tobacco: Never Smokeless Tobacco: Never Alcohol Use Standard Drinks/Week Comments Not Currently 0 (1 standard drink = 0.6 oz pure 1 wine cooler very occassionaly alcohol) Alcohol Habits Answer Date Recorded How often do you have a drink containing alcohol? Monthly or less 05/04/2022 How many drinks containing alcohol do you have on a Patient refused 05/04/2022 typical day when you are drinking? How often do you have six or more drinks on one Never 05/04/2022 occasion? Social Isolation Answer Date Recorded In a typical week, how many times do you More than three abel es a week 05/04/2022 talk on the phone with family, friends, or neighbors? How often do you get together with friends Twice a week 05/04/2022 or relatives? How often do you attend scientologist or More than 4 times per year 05/04/2022 yazdanism services? Do you belong to any clubs or Yes 05/04/2022 organizations such as scientologist groups, unions, fraternal or athletic groups, or school groups? How often do you attend meetings of the More than 4 times pe r year 05/04/2022 clubs or organizations you belong to? Are you now , , , Never 05/04/2022 , never or living with a partner? Physical Activity Answer Date Recorded On average, how many days per week do you engage in moderate to 0 days 05/04/2022 strenuous exercise (like walking fast, running, jogging, dancing, swimming, biking, or other activities that cause a light or heavy sweat)? On average, how many minutes do you engage in exercise at th is 0 min 05/04/2022 level? Stress Answer Date Recorded Do you feel stress - tense, restless, nervous, or anxious, N ot at all 05/04/2022 or unable to sleep at night because your mind is troubled all the time - these days? Financial Resource Strain Answer Date Recorded How hard is it for you to pay for the very basics like Not v estephanie hard 05/04/2022 food, housing, medical care, and heating? Food Insecurity Answer Date Recorded Within the past 12 months, you worried that your food would Never true 05/04/2022 run out before you got money to buy more. Within the past 12 months, the food you bought just didn't N ever true 05/04/2022 last and you didn't have money to get more. Transportation Needs Answer Date Recorded In the past 12 months, has lack of transportation kept you f rom No 05/04/2022 medical appointments or from getting medications? In the past 12 months, has lack of transportation kept you f rom No 05/04/2022 meetings, work, or getting things needed for daily living? Housing Stability Answer Date Recorded In the last 12 months, was there a time when you were not ab le No 05/04/2022 to pay the mortgage or rent on time? In the last 12 months, how many places have you lived? 1 05/04/2022 In the last 12 months, was there a time when you did not hav e a No 05/04/[address] sleep or slept in a senior care (including now)? Education Answer Date Recorded What is the highest level of school you have completed or 12 th grade 05/03/2022 the highest degree you have received? Sex Assigned at Date Recorded Female 05/03/2022 7:07 PM PRODUCT SALES REPRESENTATIVE documented as of this encounter Medications at Time of Discharge Medication Sig Dispensed Refills Start Date End Date amoxicillin (AMOXIL) 500 Take 4 capsules (2,000 12 capsule 10 07/24/2018 mg capsule mg total) by mouth See Admin Instructions. Prior to dental appointments amoxicillin-pot 1 tablet 2 (two) times 0 04/26/20 22 clavulanate (AUGMENTIN) a day. Ending on 875-125 mg per tablet 05/05/2022 evening calcipotriene (DOVONEX) Apply to involved 60 g 2 03/03 0.005 % ointment areas on trunk and extremities once daily Mondays- chlorhexidine Take 15 mL by mouth at 0 02/21/2016 (for_PERIDEX) 0.12 % bedtime. mouthwash coal tar (PREM-GEL) 0.5 Apply 1 application 0 % shampoo topically every other day as needed for dandruff. multivitamin tablet Take 2 tablets by 0 3 mouth daily. Skyrizi 150 mg/mL pen every 3 (three) 0 2 injector months. documented as of this encounter Plan of Treatment Upcoming Encounters Date Type Specialty Care Team Description 06/22/2022 Appointment Laboratory Medicine Rusty Vee M.D. [address] [place] [phone] 06/22/2022 Diagnostic Pulmonary Medicine Rusty Vee M.D. [address] [place] [phone] 06/22/2022 Diagnostic Pulmonary Medicine Rusty Vee M.D. [address] [place] [phone] 06/22/2022 Appointment Radiology Rusty Vee M.D. [address] [place] [phone] 06/23/2022 Clinical Communication Admitting/Central Scheduling 06/28/2022 Appointment Pulmonary Medicine Rusty Vee M.D. [address] [place] [phone] 06/28/2022 Appointment Pulmonary Medicine Rusty Vee M.D. [address] [place] [phone] documented as of this encounter Procedures Procedure Name Priority Date/Time Associated Diagnosis Comme nts (TTE) CONGENITAL 2D Routine 05/05/2022 3:04 PM Defect Atrial R esults for this WITH COLOR AND PRODUCT SALES REPRESENTATIVE Ventricular Canal procedur e are in DOPPLER Complete (HCC) the results section. 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 TR Vmax 3.30 MC CV EIMS RA Pressure 10 MC CV EIMS RV Systolic 54 MC CV EIMS Pressure Estimated 19 MC CV EIMS diastolic pulmonary artery pressure AV mean gradient 13 MC CV EIMS Aortic valve 1.59 MC CV EIMS area MV mean gradient 5 MC CV EIMS MV regurgitant 49 MC CV EIMS volume LA Volume Index 30 MC CV EIMS Aortic Valve 2.40 MC CV EIMS Systolic Peak Velocity Anatomical Region Laterality Modality Other Specimen (Source) Anatomical Collection Method Collection Time Re ceived Time Location / / Volume Laterality 05/05/2022 1:42 PM PRODUCT SALES REPRESENTATIVE Impressions 05/05/2022 4:03 PM PRODUCT SALES REPRESENTATIVE LEFT VENTRICLE:Normal left ventricular wall thickness. Abnormal ventricular septal motion due to conduction. Indeterminate left ventricular diastolic function. Increased left ventricular outflow tract flow velocities. ATRIA:Normal left atrial size. Left atri al volume index 30 ml/m2. Normal right atrial size. CARDIAC VALVES:Trileaflet aortic valve. Thickened aortic valve. No aortic valve regurgitation. Normal pulmonary valve. Trivial pulmonary valve regurgitation. OTHER ECHO FINDINGS:Normal abdominal aor ta Doppler flow pattern. Abdominal aorta incompletely visualized. No ventricular level shunt by color flow. No shunt at atrial level by color flow imaging. No intracardiac mass or thrombus, but the left atrial appendage cannot be visualized adequatel y with transthoracic echo to exclude thrombus in this location. For the complete report, see the Order-L evel Documents. Narrative 05/05/2022 4:03 PM PRODUCT SALES REPRESENTATIVE For the complete report, see the Order-Level Documents. Hemodynamics Heart Rate: 68 BPM Blood Pressure: 98 / 60 mmHg ECG: Sinus rhythm Final Impressions 1. 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 2. 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 Regurgitant volume 49 ml, ERO = 0.30 cm2. Mean diastolic gradient 5 mmHg (heart rate: 67 bpm). 3. Mild-moderate tricuspid valve regurgi tation (multiple jets). 4. Normal left ventricular chamber size and systolic function. Calculated ejection fraction 70%. 5. Left ventricular cardiac index 3.04 l /min/m2. 6. Left ventricular outflow tract mean D oppler gradient 12 mm Hg. 7. Abnormal ventricular septal motion du e to conduction and right sided pressures. 8. Mildly enlarged right ventricular jermaine mber size with mildly reduced systolic function. 9. Estimated right ventricular systolic pressure 54 mmHg (right atrial pressure of 10 mmHg). 10. Normal inferior vena cava size with reduced inspiratory collapse (<50%). 11. No ??pericardial effusion. 12. Compared to the report of 2017 the following changes have occurred: Estimated RVSP has increased. Amount of mitral valve regurgitation has increased with increased mean diastolic gradient. Increased LVOT Doppler velocity/gradient. Procedure Note Betito Power M.D. - 05/05/2022Fo rmatting of this note might be different from the original. For the complete report, see the Order-L evel Documents. Hemodynamics Heart Rate: 68 BPM Blood Pressure: 98 / 60 mmHg ECG: Sinus rhythm Final Impressions 1. 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 2. 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 Regurgitant volume 49 ml, ERO = 0.30 cm2. Mean diastolic gradient 5 mmHg (heart rate: 67 bpm). 3. Mild-moderate tricuspid valve regurgi tation (multiple jets). 4. Normal left ventricular chamber size and systolic function. Calculated ejection fraction 70%. 5. Left ventricular cardiac index 3.04 l /min/m2. 6. Left ventricular outflow tract mean D oppler gradient 12 mm Hg. 7. Abnormal ventricular septal motion du e to conduction and right sided pressures. 8. Mildly enlarged right ventricular jermaine mber size with mildly reduced systolic function. 9. Estimated right ventricular systolic pressure 54 mmHg (right atrial pressure of 10 mmHg). 10. Normal inferior vena cava size with reduced inspiratory collapse (<50%). 11. No pericardial effusion. 12. Compared to the report of 2017 the following changes have occurred: Estimated RVSP has increased. Amount of mitral valve regurgitation has increased with increased mean diastolic gradient. Increased LVOT Doppler velocity/gradient. Findings LEFT VENTRICLE:Normal left ventricular w all thickness. Abnormal ventricular septal motion due to conduction. Indeterminate left ventricular diastolic function. Increased left ventricular outflow tract flow velocities. ATRIA:Normal left atrial size. Left atri al volume index 30 ml/m2. Normal right atrial size. CARDIAC VALVES:Trileaflet aortic valve. Thickened aortic valve. No aortic valve regurgitation. Normal pulmonary valve. Trivial pulmonary valve regurgitation. OTHER ECHO FINDINGS:Normal abdominal aor ta Doppler flow pattern. Abdominal aorta incompletely visualized. No ventricular level shunt by color flow. No shunt at atrial level by color flow imaging. No intracardiac mass or thrombus, but the left atrial appendage cannot be visualized adequately with transthoracic echo to exclude thrombus in this location. For the complete report, see the Order-L evel Documents. Mike Prescott, M.P.H. CV ECHO PROCEDURES documented in this encounter Visit Diagnoses Diagnosis Defect Atrial Ventricular Canal Complete (HCC) documented in this encounter Care Teams Slip Laster Relationship Specialty Start Date End Date Aura Sandhu APRN, C.N.P., D.N.P. PCP - General 09/25/[id number] [phone] documented as of this encounter
--- OUTSIDE RECORDS SUMMARY | 2022-05-25 20:55 | XMS_ITS | Clinical Summary ---
:1975 Author Organization [facility] Address [address] [place] [address] Care Team Providers Name Role Phone Aura Sandhu APRN C.N.P., D.N.P. Primary Care Provider Source Comments Patient records contain information from all sites at [facility]. For routine questions regarding patient records, call [phone] during business hours, M-F 8:00 AM - 5:00 PM Central Time. Record requests for emergency care only can be directed to [phone] at any time.[facility] Allergies Active Allergy Reactions Severity Noted Date [...] Additional Information Patient not taking. Reported on 05/05/2022 amoxicillin-pot 1 tablet 2 (two) 0 04/26/2022 Active clavulanate times a day. Ending (AUGMENTIN) 875-125 mg on 05/05/2022 per tablet evening Skyrizi 150 mg/mL pen every 3 (three) 0 04/01/2022 Active injector months. clobetasoL (TEMOVATE) 0 04/05/202105/05/ Discontinued 0.05 % ointment 2021 (The rapy completed) dexAMETHasone sodium 4 mL by 25 mL 0 05/19/202105/05/ Discontinued phosphate 0.4 % iontophoretic route 2021 (Therapy solution as needed (Plantar c ompleted) fasciitis pain). Active Problems Problem Noted Date [...] For Therapeutic Drug Therapy [Z51.81] 09/07/2017 09/09/2019 Fdc Anticoagulant Treatment [Z79.01] 09/07/2017 09/09/2019 Anticoagulant Therapy [...] Encounters Date Type Specialty Care Team Description 05/17/2022 Orders Only Laboratory Medicine Aura Sandhu Screen ing Cancer M, AGENT BASED MODELER, Colon C.N.P., D.N.P. 05/06/2022 Clinical Emergency Medicine Amy Amaya Follow- up (Left Communication S, R.N. without being seen) 05/05/2022 Emergency Emergency Medicine 05/05/2022 Hospital Encounter Cardiovascular Johnson, Mike Defe ct Atrial Disease C, M.B.B.S., Ventricular Can al M.P.H. Complete (FORMERLY [facility]) 05/05/2022 Comprehensive Visit Cardiovascular Mike Ornelas Reg urgitation Mitral (Primary Dx); Disease C, M.B.B.S., Prosthesis Hear t Valve M.P.H. 05/04/2022 Hospital Encounter Laboratory Medicine Aura Sandhu Screening Examination Diabetes Mellitus; M, AGENT BASED MODELER, Hyperlipidemia Mixed; C.N.P., D.N.P. Defect Atrial Ventricular Canal Complete ([facility]) 05/04/2022 Hospital Encounter Radiology Mike Ornelas Defect Atrial C, M.B.B.S., Ventricular Can al M.P.H. Complete ([facility]) 05/04/2022 Hospital Encounter Radiology Mike Ornelas Defect Atrial C, M.B.B.S., Ventricular Can al M.P.H. Complete ([facility]) 05/04/2022 Hospital Encounter Radiology King, Abnormal Findings On Tanya Martinez, Diagnostic Imag ing C.N.P. Of Other Specif ied Body Structures 05/03/2022 Orders Only Cardiovascular Somerdale, Kathy Defect Atr ial Disease A, R.N. Ventricular Can al Complete (HCC) (Primary Dx) 05/03/2022 Orders Only Cardiovascular Egbe, Mike Disease C, M.B.B.S., M.P.H. 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 04/28/2022 Clinical Pulmonary Medicine Rusty Vee, Communication M.Rohit 04/26/2022 Community Orders Fernando, Abnormal Fi ndings On Diagnostic Imaging Of Other Specified Body Structures (Primary Dx); Tanya Martinez, Wheezing; C.N.P. Cough Unspecifi ed Type; Prosthesis Hear t Valve 04/20/2022 Orders Only Aura Sandhu M, AGENT BASED MODELER, C.N.P., D.N.P. 03/01/2022 Orders Only Aura Sandhu Screening Exa mination Diabetes Mellitus; M, AGENT BASED MODELER, Hyperlipidemia Mixed C.N.P., D.N.P. from Last 3 Months Immunizations Name Administration [...] maternal Brain Thyroid dysfunction Aunt 2 maternal Colon polyps Father manjinder Carol Osteoporosis Father manjinder Carol Prostate cancer Father manjinder Garvinl 06/2016 Sleep apnea Father manjinder [place] Anxiety disorder Mother Fabiola Carol Colon polyps Mother Fabiola Carol Hyperlipidemia Mother Fabiola Carol medications Sleep apnea Mother Fabiola Carol Breast cancer Mother's Sister Molly Samch cancer free Aneurysm Uncle Maternal aortic aneurysm and bulge Cataracts Neg Hx Diabetes Neg Hx Glaucoma Neg Hx Hypertension Neg Hx Macular degeneration Neg Hx Relation Name Status Comments Aunt 1 Maternal Aunt 2 maternal Father manjinder Carol Mother Fabiola Carol Mother's Sister Molly Bunch Uncle Maternal Social History Tobacco Use Types [...] or relatives? How often do you attend latter day or More than 4 times per year 05/04/2022 congregation services? Do you belong to any clubs or Yes 05/04/2022 organizations such as latter day groups, unions, fraternal or athletic groups, or [...] place to sleep or slept in a alf (including now)? Education Answer Date Recorded What is the highest level of school you have completed or 12 th grade 05/03/2022 the highest degree you have received? Sex Assigned at Date Recorded Female 05/03/2022 7:07 PM COUTURE DRESSMAKER Last Filed Vital Signs Vital Sign Reading Time Taken Comments Blood Pressure 117/75 05/05/2022 9:06 PM COUTURE DRESSMAKER Pulse 72 05/05/2022 9:06 PM COUTURE DRESSMAKER Temperature 36.9 ??C (98.4 ??F) 05/05/2022 9:06 PM COUTURE DRESSMAKER Respiratory Rate 20 05/05/2022 9:06 PM COUTURE DRESSMAKER Oxygen Saturation 96% 05/05/2022 9:06 PM COUTURE DRESSMAKER Inhaled Oxygen Concentration - - Weight 85.6 kg (188 lb 11.4 oz) 05/05/2022 3:55 PM COUTURE DRESSMAKER Height 146.6 cm (4' 9.72) 05/05/2022 9:37 AM COUTURE DRESSMAKER Body Mass Index 39.83 05/05/2022 9:37 AM COUTURE DRESSMAKER Plan of Treatment Upcoming Encounters Date Type Specialty Care Team Description 06/22/2022 Appointment Laboratory Medicine Rusty Vee M.D. [address] [place] [phone] 06/22/2022 Diagnostic Pulmonary Medicine Rusty Vee M.D. [address] [place] [phone] 06/22/2022 Diagnostic Pulmonary Medicine Rusty Vee M.D. [address] [place] [phone] 06/22/2022 Appointment Radiology Rusty Vee M.D. [address] [place] [phone] 06/23/2022 Clinical Communication Admitting/Central Scheduling 06/28/2022 Appointment Pulmonary Medicine Rusty Vee M.D. [address] [place] [phone] 06/28/2022 Appointment Pulmonary Medicine Rusty Vee M.D. [address] [place] [phone] Health Maintenance Due Date Last Done Comments CT Colonography 1975 Cologuard 1975 Colonoscopy 1975 Colorectal Cancer Screening 1975 FIT 1975 Hepatitis B Vaccines (1 of 1975 3 - 3-dose series) Hepatitis C Screening 1975 Pneumococcal vaccine (0-64 01/11/1980 years) (1 - PCV) Cervical Cancer Screening 06/26/2014 06/26/2011 (Performed elsewhere) Depression Screening 06/26/2021 (Annual PHQ-2) COVID-19 Vaccine (5 - 02/02/2022 12/08/2021, 05/05/2021, Booster for Moderna series) 08/28/2020, Addition al history exists Influenza Vaccine (#1) 2022 03/11/2021, 02/28/2020, 04/02/2019, Additional history exists Mammogram 10/25/2022 10/25/2021, 08/03/2020, 08/01/2019, Additional history exists Lipid (Cholesterol) 05/04/2023 05/04/2022, 08/26/2020, Screening 07/17/2019, Additional history exists Fasting Glucose for 05/05/2023 05/05/2022, 05/04/2022, Diabetes Screening 08/26/2020, Additional history exists DTaP,Tdap,and Td Vaccines 07/10/2028 07/10/2018, 04/09/2007 (3 - Td or Tdap) HPV Vaccines Aged Out No longer eligib le based on patient 's age to complete this topic Medical Devices Implanted Type Area Detention Attendant Device Shelf Model / Identifier Expiration Serial / Date Lot Syn-Screw Cortex S-Tap 2.4 X 18mm - Akers [id number] Hardware e.g. DepViolet Grey Implanted: Qty: 2 on 05/09/2016 pins/screws/r ods Description: Device Detention Attendant - Synth es. Device Status Text - [id number]. Patch Pericardial Supple 6 X 8 - Akers [id number] Mesh or Patch Other/Legacy - See Implant Synovis Implanted: Qty: 1 on 03/29/2013 Description Description: Device Detention Attendant - Synov is. Body Location - Other. Not Applicable. Device Status Text - [id number]. Procedures Procedure Name Priority Date/Time Associated Comments Diagnosis IFLU A, B, SARS COV-2, STAT 05/05/2022 Resul ts for PCR, RAPID,V 6:03 PM COUTURE DRESSMAKER this procedure are in the results section. BASIC METABOLIC PANEL, STAT 05/05/2022 Resul ts for S/P 5:19 PM COUTURE DRESSMAKER this procedure are in the results section. CBC WITH DIFFERENTIAL, STAT 05/05/2022 Resul ts for B 5:19 PM COUTURE DRESSMAKER this procedure are in the results section. (TTE) CONGENITAL 2D Routine 05/05/2022 Defect Atrial Results for WITH COLOR AND DOPPLER 3:04 PM COUTURE DRESSMAKER Ventricular Canal this procedure Complete (HCC) are in the results section. DX CHEST AP OR PA AND RAD - Routine 05/04/2022 Defect Atrial Resu lts for LATERAL 2 VIEWS (most inpatients 8:26 AM COUTURE DRESSMAKER Ventricular Canal thi s procedure and all Complete (HCC) are in the outpatients) results section. CT CHEST WITH IV RAD - Routine 05/04/2022 Abnormal Findings Resul ts for CONTRAST (most inpatients 8:24 AM COUTURE DRESSMAKER On Diagnostic this proce dure and all Imaging Of Other are in the outpatients) Specified Body results Structures section. ECG Routine 05/04/2022 Defect Atrial Results for 8:01 AM COUTURE DRESSMAKER Ventricular Canal this proce dure Complete (HCC) are in the results section. HC T4 FREE Routine 05/04/2022 Results for 7:58 AM COUTURE DRESSMAKER this procedure are in the results section. THYROID FUNCTION Routine 05/04/2022 Defect Atrial Results fo r CASCADE, S 7:58 AM COUTURE DRESSMAKER Ventricular Canal this proce dure Complete (HCC) are in the results section. SODIUM, S/P Routine 05/04/2022 Defect Atrial Results for 7:58 AM COUTURE DRESSMAKER Ventricular Canal this proce dure Complete (HCC) are in the results section. POTASSIUM, S/P Routine 05/04/2022 Defect Atrial Results for 7:58 AM COUTURE DRESSMAKER Ventricular Canal this proce dure Complete (HCC) are in the results section. CREATININE WITH EGFR, Routine 05/04/2022 Defect Atrial Resul ts for S/P 7:58 AM COUTURE DRESSMAKER Ventricular Canal this proce dure Complete (HCC) are in the results section. CBC WITH DIFFERENTIAL, Routine 05/04/2022 Defect Atrial Resu lts for B 7:58 AM COUTURE DRESSMAKER Ventricular Canal this proce dure Complete (HCC) are in the results section. BUN (BLOOD UREA Routine 05/04/2022 Defect Atrial Results for NITROGEN), S/P 7:58 AM COUTURE DRESSMAKER Ventricular Canal this pro cedure Complete (HCC) are in the results section. ASPARTATE Routine 05/04/2022 Defect Atrial Results for AMINOTRANSFERASE 7:58 AM COUTURE DRESSMAKER Ventricular Canal this p rocedure (AST), S/P Complete (HCC) are in the results section. LIPID PANEL, S Routine 05/04/2022 Hyperlipidemia Results for 7:58 AM COUTURE DRESSMAKER Mixed this procedure are in the results section. GLUCOSE, FASTING, S/P Routine 05/04/2022 Screening Result s for 7:58 AM COUTURE DRESSMAKER Examination this procedure Diabetes Mellitus are in the results section. THYROPEROXIDASE (TPO) Routine 05/04/2022 Result s for ABS, S 7:56 AM COUTURE DRESSMAKER this procedure are in the results section. OUTSIDE DX CHEST Routine 04/25/2022 Results for 3:45 PM CDT this procedure are in the results section. from Last 3 Months Results Influenza A/B, SARS CoV-2, PCR, Rapid, Varies Symptomatic (05/05/2022 6:03 PM COUTURE DRESSMAKER) [facility] Method Time Signature Influenza A, Negative Negative 05/05/2022 [facility] PCR, Rapid, V 6:32 PM COUTURE DRESSMAKER Influenza B, Negative Negative 05/05/2022 [facility] PCR, Rapid, V 6:32 PM COUTURE DRESSMAKER SARS CoV-2, Undetected Undetected 05/05/2022 [facility] PCR, Rapid, V 6:32 PM COUTURE DRESSMAKER Comment: ----ADDITIONAL INFORMATION---- This RT-PCR test was performed using the Sam SARS-CoV-2 and Influenza A/B Reagent assay from [employer], which has received Emergency Use Authori zation(EUA) by the U.S. Food and Drug Administration . Fact sheets for this Emergency Use Autho rization (EUA) assay can be found at the following link s: For Healthcare Providers: https://www.fda.gov/media/607359/downloa d For Patients: https://www.fda.gov/media/300316/downloa d Infl A/B, SARS CoV-2, PCR, Source Swab, Nasopharynx 05/05/2022 6:07 PM COUTURE DRESSMAKER ST[facility] Specimen Anatomical Collection Method Collection Time Receive d Time (Source) Location / / Volume Laterality Swab 05/05/2022 6:03 PM 6:07 (Nasopharynx) COUTURE DRESSMAKER PM COUTURE DRESSMAKER Sophia Lovett M.D., M.P.H. LAB MICROBIOLOGY - GENERA L ORDERABLES Performing Organization Address City/State/ZIP Code Phon e Number [facility] - [address] [place], [place] [address] [facility] [place] [address] Laboratories-[facility] [address] (ABNORMAL) CBC with Differential, Blood (05/05/2022 5:19 PM COUTURE DRESSMAKER)Only the most recent of2 resultswithin the time period is included. [facility] Method Time Signature Hemoglobin 13.2 11.6 - 05/05/2022 [facility] 15.0 g/dL 5:48 PM COUTURE DRESSMAKER Hematocrit 41.7 35.5 - 05/05/2022 [facility] 44.9 % 5:48 PM COUTURE DRESSMAKER Erythrocytes 4.03 3.92 - 05/05/2022 [facility] 5.13 5:48 PM COUTURE DRESSMAKER x10(12)/L MCV 103.5 (H) 78.2 - 05/05/2022 [facility] 97.9 fL 5:48 PM COUTURE DRESSMAKER RBC Distrib Width 14.6 12.2 - 05/05/2022 [facility] 16.1 % 5:48 PM COUTURE DRESSMAKER Platelet Count 131 (L) 157 - 371 05/05/2022 [facility] x10(9)/L 10:00 PM COUTURE DRESSMAKER Comment: Results confirmed by smear, no clumping or interference seen. Leukocytes 4.5 3.4 - 9.6 x10(9)/L 05/05/2022 10:00 PM COUTURE DRESSMAKER [facility] Neutrophils 3.02 1.56 - 6.45 x10(9)/L 05/05/2022 5:48 P M COUTURE DRESSMAKER [facility] Lymphocytes 1.13 0.95 - 3.07 x10(9)/L 05/05/2022 5:48 P M COUTURE DRESSMAKER [facility] Monocytes 0.24 (L) 0.26 - 0.81 x10(9)/L 05/05/2022 5:48 PM COUTURE DRESSMAKER [facility] Eosinophils 0.06 0.03 - 0.48 x10(9)/L 05/05/2022 5:48 P M COUTURE DRESSMAKER [facility] Basophils 0.03 0.01 - 0.08 x10(9)/L 05/05/2022 5:48 PM COUTURE DRESSMAKER [facility] Specimen Anatomical Collection Method Collection Time Receive d Time (Source) Location / / Volume Laterality Blood (Blood, 05/05/2022 5:19 PM 05/05/20 5:44 Venous) COUTURE DRESSMAKER PM COUTURE DRESSMAKER Sophia Lovett M.D., M.P.H. LAB BLOOD ADD-ON Performing Organization Address City/State/ZIP Code Phon e Number [facility] - [address] [place] [phone] [facility] [place] [address] [facility] [address] [facility] (ABNORMAL) Basic Metabolic Panel (05/05/2022 5:19 PM COUTURE DRESSMAKER) Analysis Performed At Patho logist Time Signature Potassium, P 4.1 3.6 - 5.2 05/05/2022 [facility] mmol/L 6:01 PM COUTURE DRESSMAKER Sodium, P 141 135 - 145 05/05/2022 [facility] mmol/L 6:01 PM COUTURE DRESSMAKER Chloride, P 102 98 - 107 05/05/2022 [facility] mmol/L 6:01 PM COUTURE DRESSMAKER Bicarbonate, P 31 (H) 22 - 29 05/05/2022 [facility] mmol/L 6:01 PM COUTURE DRESSMAKER Anion Gap, P 8 7 - 15 05/05/2022 [facility] 6:01 PM COUTURE DRESSMAKER BUN (Blood Urea 15 6 - 21 05/05/2022 [facility] Nitrogen), P mg/dL 6:01 PM COUTURE DRESSMAKER Creatinine 1.08 (H) 0.59 - 05/05/2022 [facility] 1.04 mg/dL 6:01 PM COUTURE DRESSMAKER Estimated GFR 63 >=60 05/05/2022 [facility] (eGFR) mL/min/BSA 6:01 PM COUTURE DRESSMAKER Comment: Estimated GFR calculated using the 2020 CKD_EPI creatinine equation. Calcium, Total, P 9.2 8.6 - 10.0 mg/dL 05/05/2022 6:01 PM COUTURE DRESSMAKER STMA Glucose, P 109 70 - 140 mg/dL 05/05/2022 6:01 PM COUTURE DRESSMAKER S TMA Specimen Anatomical Collection Method Collection Time Receive d Time (Source) Location / / Volume Laterality Blood (Blood, 05/05/2022 5:19 PM 05/05/20 5:44 Venous) COUTURE DRESSMAKER PM COUTURE DRESSMAKER Sophia Lovett M.D., M.P.H. LAB BLOOD ADD-ON Performing Organization Address City/State/ZIP Code Phon e Number [facility] - [address] [place], [place] [address] [facility] [place] [address] [facility] [address] [facility] (TTE) CONGENITAL 2D WITH COLOR AND DOPPLER (05/05/2022 3:04 PM COUTURE DRESSMAKER) P athologist Signature Ejection 70 MC CV [...] / / Volume Laterality 05/05/2022 1:42 PM COUTURE DRESSMAKER Impressions 05/05/2022 4:03 PM COUTURE DRESSMAKER LEFT VENTRICLE:Normal left ventricular wall thickness. Abnormal [...] Order-L evel Documents. Narrative 05/05/2022 4:03 PM COUTURE DRESSMAKER For the complete report, see the Order-Level Documents. Hemodynamics Heart Rate: 68 BPM Blood Pressure: 98 / 60 mmHg ECG: Sinus rhythm Final Impressions 1. 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 2. 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 2. Moderate-severe mitral valve regurgit ation [...] report, see the Order-L evel Documents. Mike Jackson., M.P.H. CV ECHO PROCEDURES DX Chest AP or PA and Lateral 2 Views (05/04/2022 8:26 AM COUTURE DRESSMAKER) Anatomical Region Laterality Modality Chest, Thoracic RST LOS, Thoracic ARZ LOS, Thoracic N/A Digital Radiography FLA LOS Specimen (Source) Anatomical Collection Method Collection Time Re ceived Time Location / / Volume Laterality 05/04/2022 9:25 AM COUTURE DRESSMAKER Impressions 05/04/2022 9:27 AM COUTURE DRESSMAKER Since 04/25/2022, persistent cardiomegaly with increased pulmonary vascular congestion and bilateral mid-lower lung predominant airspace and interstitial opacities/edema. Remainder not significantly changed. No pneumothorax. Probable small bilatera l pleural effusions. Sternotomy. Narrative 05/04/2022 9:27 AM COUTURE DRESSMAKER EXAM: DX CHEST AP OR PA AND LATERAL 2 VIEWS Procedure Note Osmin Vasquez M.D. - 05/04/2022F ormatting of this note might be different from the original. EXAM: DX CHEST AP OR PA AND LATERAL 2 EWS IMPRESSION: Since 04/25/2022, persistent cardiomegal y with increased pulmonary vascular congestion and bilateral mid-lower lung predominant airspace and interstitial opacities/edema. Remainder not significantly changed. No pneumothorax. Probable small bilatera l pleural effusions. Sternotomy. Mike Prescott, M.P.H. IMG DIAGNOSTIC IMAGI NG PROCEDURES CT Chest with IV Contrast (05/04/2022 8:24 AM COUTURE DRESSMAKER) Anatomical Region Laterality Modality Chest, Thoracic RST LOS, Thoracic ARZ LOS, Thoracic N/A Computed Tomography ARZ LOS, Thoracic FLA LOS Specimen (Source) Anatomical Collection Method Collection Time Re ceived Time Location / / Volume Laterality 05/04/2022 8:35 AM COUTURE DRESSMAKER Impressions 05/04/2022 9:30 AM COUTURE DRESSMAKER 1. ??Findings suspicious for multifocal atypical pneumonia. 2. ??Hepatic steatosis. Narrative 05/04/2022 9:30 AM COUTURE DRESSMAKER EXAM: CT CHEST WITH IV CONTRAST 3D/MIPS: 3D Post-Processing performed on a dependent workstation. COMPARISON: None FINDINGS: Patchy bilateral pulmonary lucía undglass, interstitial and tree-in-bud airspace opacities consistent with atypical infectious or i nflammatory process. Normal heart size. Normal caliber thoracic aorta. No pleural effusion. No pneumothorax. No pathologically enlarged thoracic lymph nodes. Hepatic steatosis. Cholecystectom y. Sternotomy. Procedure Note Darryn Jones M.D. - 05/04/2022Formattin g of this note might be different from the original. EXAM: CT CHEST WITH IV CONTRAST 3D/MIPS: 3D Post-Processing performed on a dependent workstation. COMPARISON: None FINDINGS: Patchy bilateral pulmonary lucía undglass, interstitial and tree-in-bud airspace opacities consistent with atypical infectious or i nflammatory process. Normal heart size. Normal caliber thoracic aorta. No pleural effusion. No pneumothorax. No pathologically enlarged thoracic lymph nodes. Hepatic steatosis. Cholecystectom y. Sternotomy. IMPRESSION: 1. Findings suspicious for multifocal at ypical pneumonia. 2. Hepatic steatosis. Tanya King C.N.P. IMG CT PROCEDURES ECG 12 Lead (05/04/2022 8:01 AM COUTURE DRESSMAKER) P athologist Signature Ventricular Rate 72 BPM MUSE ECG/Min MO Interval 164 ms MUSE QRSD Interval 88 ms MUSE QT Interval 394 ms MUSE QTC Interval 431 ms MUSE P Erie 22 degrees MUSE R Erie -17 degrees MUSE T Wave [place] 18 degrees MUSE Specimen Anatomical Collection Method Collection Time Receive d Time (Source) Location / / Volume Laterality 05/04/2022 8:01 AM 8:08 COUTURE DRESSMAKER AM COUTURE DRESSMAKER Impressions MUSE - 05/04/2022 8:08 AM COUTURE DRESSMAKER Normal sinus rhythm Nonspecific ST abnormality When compared with ECG of 10-JAN-2017 10 :07, No significant change was found Reviewed by CARIE Hooker Narrative This result has an attachment that is no t available. Procedure Note Osvaldo Woods M.D., Ph.D. - 05/04/20 22 IMPRESSION: Normal sinus rhythm Nonspecific ST abnormality When compared with ECG of 10-JAN-2017 10 :07, No significant change was found Reviewed by CARIE Hooker Mike Prescott, M.P.H. ECG ORDERABLES Performing Organization Address City/State/ZIP Code Phon e Number MUSE MUSE NA T4 (Thyroxine), Free, Serum (05/04/2022 7:58 AM COUTURE DRESSMAKER) athologist Signature T4 (Thyroxine), 0.9 0.9 - 1.7 05/04/2022 RDWG Free, S ng/dL 1:03 PM COUTURE DRESSMAKER Comment: Biotin has been identified by the isi cturer as a potential interfering substance. Higher concentrations of biotin may be found in multivitamins, taylor ir/nail supplements, and workout supplements. If the result d oes not match clinical observations, repeat testing af ter patient refrains from the use of supplements for at least 12 hours. Specimen Anatomical Collection Method Collection Time Receive d Time (Source) Location / / Volume Laterality Blood 05/04/2022 7:58 AM 7:59 COUTURE DRESSMAKER AM COUTURE DRESSMAKER Mike Jackson., M.P.H. LAB BLOOD ADD-ON Performing Organization Address City/State/ZIP Code Phon e Number [facility]- [address] [place] [address] [place] [address] System in [place] [address] (ABNORMAL) Lipid Panel (05/04/2022 7:58 AM COUTURE DRESSMAKER) P athologist Signature Triglycerides 142 mg/dL 05/04/2022 CNFL 8:24 AM COUTURE DRESSMAKER Comment: ----REFERENCE VALUE---- Normal: <150 mg/dL Borderline High: 150-199 mg/dL High: 200-499 mg/dL Very High: > or =500 mg/dL Cholesterol, Total 177 mg/dL 05/04/2022 8:24 AM CS T CNFL Comment: ----REFERENCE VALUE---- Desirable: < 200 mg/dL Borderline High: 200 - 239 mg/dL High: > or = 240 mg/dL Cholesterol, LDL, Calculated 109 mg/dL 05/04/2022 8:24 AM COUTURE DRESSMAKER CNFL Comment: ----REFERENCE VALUE---- Desirable: <100 mg/dL Above Desirable: 100-129 mg/dL Borderline High: 130-159 mg/dL High: 160-189 mg/dL Very High: >=190 mg/dL ----ADDITIONAL INFORMATION---- LDL cholesterol calculated using the Shelby/NIH equation. Cholesterol, HDL 43 (L) >=50 mg/dL 05/04/2022 8:24 AM COUTURE DRESSMAKER CNFL Cholesterol, Non-HDL, Calculated 134 mg/dL 022 8:24 AM COUTURE DRESSMAKER CNFL Comment: ----REFERENCE VALUE---- Desirable: <130 mg/dL Above Desirable: 130-159 mg/dL Borderline High: 160-189 mg/dL High: 190-219 mg/dL Very High: > or =220 mg/dL Fasting (8 HR or more) Yes 05/04/2022 7:59 A M COUTURE DRESSMAKER CNFL Specimen Anatomical Collection Method Collection Time Receive d Time (Source) Location / / Volume Laterality Blood (Blood, 05/04/2022 7:58 AM 05/04/20 7:59 Venous) COUTURE DRESSMAKER AM COUTURE DRESSMAKER Aura Sandhu APRN, C.N.P., RohitNGalileo LAB BLOOD ADD-ON Performing Organization Address City/[facility]/ZIP Code Phon e Number [address] [address] [place] [address] (ABNORMAL) Thyroid Function [place] (05/04/2022 7:58 AM COUTURE DRESSMAKER) athologist Signature TSH, Sensitive 5.9 (H) 0.3 - 4.2 05/04/2022 CNFL mIU/L 9:18 AM COUTURE DRESSMAKER Specimen Anatomical Collection Method Collection Time Receive d Time (Source) Location / / Volume Laterality Blood (Blood, 05/04/2022 7:58 AM 05/04/20 7:59 Venous) COUTURE DRESSMAKER AM COUTURE DRESSMAKER Mike Prescott, M.P.H. LAB BLOOD ADD-ON Performing Organization Address City/[facility]/ZIP Code Phon e Number [address] [address] [place] [address] System in [place] [address] [address] BUN (Blood Urea Nitrogen) (05/04/2022 7:58 AM COUTURE DRESSMAKER) athologist Signature BUN (Blood Urea 18 6 - 21 05/04/2022 CNFL Nitrogen), P mg/dL 8:24 AM COUTURE DRESSMAKER Specimen Anatomical Collection Method Collection Time Receive d Time (Source) Location / / Volume Laterality Blood (Blood, 05/04/2022 7:58 AM 05/04/20 7:59 Venous) COUTURE DRESSMAKER AM COUTURE DRESSMAKER Mike Jackson., M.P.H. LAB BLOOD ADD-ON Performing Organization Address City/[facility]/ZIP Code Phon e Number [address] [address] [place] [address] System in [place] [address] [address] AST (Aspartate Aminotransferase) (05/04/2022 7:58 AM COUTURE DRESSMAKER) Patholo gist Method Time Signature Aspartate 22 8 - 43 05/04/2022 CNFL Aminotransferase U/L 8:24 AM COUTURE DRESSMAKER (AST), P Specimen Anatomical Collection Method Collection Time Receive d Time (Source) Location / / Volume Laterality Blood (Blood, 05/04/2022 7:58 AM 05/04/20 7:59 Venous) COUTURE DRESSMAKER AM COUTURE DRESSMAKER Mike Prescott, M.P.H. LAB BLOOD ADD-ON Performing Organization Address City/[facility] Phon e Number [id number] [place] [address] [place] [address] System in [place] [address] [address] Sodium (05/04/2022 7:58 AM COUTURE DRESSMAKER) athologist Signature Sodium, P 140 135 - 145 05/04/2022 8:24 CNFL mmol/L AM COUTURE DRESSMAKER Specimen Anatomical Collection Method Collection Time Receive d Time (Source) Location / / Volume Laterality Blood (Blood, 05/04/2022 7:58 AM 05/04/20 7:59 Venous) COUTURE DRESSMAKER AM COUTURE DRESSMAKER Mike Prescott, M.P.H. LAB BLOOD ADD-ON Performing Organization Address [facility] Phon e Number [address] [address] [place] [address] System in [place] [address] [address] Potassium (05/04/2022 7:58 AM COUTURE DRESSMAKER) athologist Signature Potassium, P 4.5 3.6 - 5.2 05/04/2022 CNFL mmol/L 8:24 AM COUTURE DRESSMAKER Specimen Anatomical Collection Method Collection Time Receive d Time (Source) Location / / Volume Laterality Blood (Blood, 05/04/2022 7:58 AM 05/04/20 7:59 Venous) COUTURE DRESSMAKER AM COUTURE DRESSMAKER Mike Prescott, M.P.H. LAB BLOOD ADD-ON Performing Organization Address City/[facility]/ZIP Code Phon e Number [address] [address] [place] [address] System in [address] (ABNORMAL) Glucose, Fasting (05/04/2022 7:58 AM COUTURE DRESSMAKER) P athologist Signature Glucose, P 115 (H) 70 - 100 05/04/2022 CNFL mg/dL 8:21 AM COUTURE DRESSMAKER Last Intake 14 hr 05/04/2022 CNFL 7:59 AM COUTURE DRESSMAKER Specimen Anatomical Collection Method Collection Time Receive d Time (Source) Location / / Volume Laterality Blood (Blood, 05/04/2022 7:58 AM 05/04/20 7:59 Venous) COUTURE DRESSMAKER AM COUTURE DRESSMAKER Aura Sandhu APRN, C.N.P., D.N.P. LAB BLOOD NON ADD -ON Performing Organization Address City/[facility] Phon e Number [address] [address] [place] [address] System [address] (ABNORMAL) Creatinine with Estimated GFR (05/04/2022 7:58 AM COUTURE DRESSMAKER) Analysis Performed At Patho logist Time Signature Creatinine 1.13 (H) 0.59 - 05/04/2022 CNFL 1.04 mg/dL 8:24 AM COUTURE DRESSMAKER Estimated GFR 60 >=60 05/04/2022 CNFL (eGFR) mL/min/BSA 8:24 AM COUTURE DRESSMAKER Comment: Estimated GFR calculated using the 2020 CKD_EPI creatinine equation. Specimen Anatomical Collection Method Collection Time Receive d Time (Source) Location / / Volume Laterality Blood (Blood, 05/04/2022 7:58 AM 05/04/20 7:59 Venous) COUTURE DRESSMAKER AM COUTURE DRESSMAKER Mike Gould.S., M.P.H. LAB BLOOD ADD-ON Performing Organization Address City/[facility]/ZIP Code Phon e Number [address] [address] [place] [address] System in [place] [address] [address] Thyroperoxidase (TPO) Antibodies (05/04/2022 7:56 AM COUTURE DRESSMAKER) Patholo gist Method Time Signature Thyroperoxidase Ab, 12.5 <34.0 05/04/2022 ECLR S IU/mL 2:31 PM COUTURE DRESSMAKER Specimen Anatomical Collection Method Collection Time Receive d Time (Source) Location / / Volume Laterality Blood 05/04/2022 7:56 AM 2:06 COUTURE DRESSMAKER PM COUTURE DRESSMAKER Mike Prescott, M.P.H. LAB BLOOD ADD-ON Performing Organization Address City/State/[facility] Phon e Number [facility]- [address] [place] [phone] [facility] [place] [place] [address] XR CHEST 2V-Outside Chest Xray (04/25/2022 3:45 PM CDT) Specimen (Source) Anatomical Location Collection Method / Collectio n Time Received Time / Laterality Volume Narrative IIMS - 04/26/2022 1:46 PM CDT This order has been created and auto-finalized to support the import of outside images. If available, original i nterpretation can be found on the Media Tab in Chart Review, in Document V iewer, or as an image in QREADS. If a re-interpretation or overread is re quired please follow defined workflow. ?? Provider Not In System IMG DIAGNOSTIC IMAGING PROCE DURES Performing Organization Address City/[facility]/ZIP Code Phon e Number IIMS IIMS NA from Last 3 Months Insurance Payer Benefit Plan / Subscriber ID Effective Dates Phone Addre ss Type Group [facility] [id number] 2017-Presen [address] [facility] [address] [id number] Advance Directives For more information, please contact: [phone] Documents on File Type Date Recorded Patient Consultant Explanati on Advance Directives 03/03/2016 12:00 AM Legacy docu ment. See document viewer. Advance Directives 03/29/2013 12:00 AM Legacy doc ument. See document viewer. Advance Directives 03/29/2013 12:00 AM Legacy doc ument. See document viewer. Care Teams Wheel And Axle Inspector Relationship Specialty Start Date End Date Aura Sandhu APRN C.N.P., D.N.P. PCP - General 09/25/[address] [place] [phone]
--- OUTSIDE RECORDS SUMMARY | 2022-05-25 20:55 | XMS_ITS | Encounter Summary ---
:1975 Author Organization [facility] Address [address] [place] [address] Care Team Providers Name Role Phone Aura Sandhu APRN, C.N.P., D.N.P. Primary Care Provider Encounter Details Date Type Department Care Team Description 05/17/2022 Orders Only [facility] SELF TEST AUAC Aura Sandhu, Screening Cancer Colon [address] FAINA EPSTEIN, C.N.P., [place] [address] D.N.P. [phone] [place] [phone] Social History Tobacco Use Types Packs/Day [...] or relatives? How often do you attend bahai or More than 4 times per year 05/04/2022 mormonism services? Do you belong to any clubs or Yes 05/04/2022 organizations such as bahai groups, unions, fraternal or athletic groups, or [...] place to sleep or slept in a long-term (including now)? Education Answer Date Recorded What is the highest level of school you have completed or 12 th grade 05/03/2022 the highest degree you have received? Sex Assigned at Date Recorded Female 05/03/2022 7:07 PM PACK MASTER documented as of this encounter Plan of Treatment Upcoming Encounters Date Type Specialty Care Team Description 06/22/2022 Appointment Laboratory Medicine Rusty Vee M.D. [address] [place] [phone] 06/22/2022 Diagnostic Pulmonary Medicine Rusty Vee M.D. [address] [place] [phone] 06/22/2022 Diagnostic Pulmonary Medicine Rusty Vee M.D. [address] [place] [phone] 06/22/2022 Appointment Radiology Rusty Vee M.D. [address] [place] [phone] 06/23/2022 Clinical Communication Admitting/Central Scheduling 06/28/2022 Appointment Pulmonary Rusty Mattson M.D. [address] [place] [phone] 06/28/2022 Appointment Pulmonary Medicine Rusty Vee M.D. [address] [place] [phone] documented as of this encounter Visit Diagnoses Diagnosis Screening Cancer Colon documented in this encounter Care Teams Installation Service Representative Relationship Specialty Start Date End Date Aura Sandhu APRN, C.N.P., D.N.P. PCP - General 09/25/[id number] [phone] documented as of this encounter
--- OUTSIDE RECORDS SUMMARY | 2022-05-25 20:55 | XMS_ITS | Encounter Summary ---
:1975 Author Organization [facility] Address [address] [place] [address] Care Team Providers Name Role Phone Aura Sandhu APRN C.N.P., D.N.P. Primary Care Provider Reason for Visit Reason Comments Follow-up Left without being seen Encounter Details Date Type Department Care Team Description 05/06/2022 Clinical Communication [facility] Amy Amaya low-up (Left Hospital Emergency S, R.N. without being seen) Department [address] [place] [address] [place] [phone] Social History Tobacco Use Types Packs/Day Years [...] or relatives? How often do you attend buddhist or More than 4 times per year 05/04/2022 druze services? Do you belong to any clubs or Yes 05/04/2022 organizations such as buddhist groups, unions, fraternal or athletic groups, or [...] at Date Recorded Female 05/03/2022 7:07 PM RN ONCOLOGY RESEARCH documented as of this encounter Miscellaneous Notes Telephone Encounter - Amy Amaya R.N. - 05/06/2022 2:28 PM CST Pt presented to the ED on 05/05/22 with concerns for cough and wheezing. Protocols were initiated inIntake including blood work. The patient left the ED prior to being seen by a provider. I attempted to contact the patient today to reassess, assure awareness of results and discuss a plan for follow up care. A voicemail message was left with request to return the call to [phone] (ED Follow Up Office) with hours provided. Amy Amaya R.N. 05/06/22 1166 Addendum: Regan's mom called back and states that Zuleima is doing better today. She was able to contact Zuleima'sPCP and [employer] and started her on new medications. She voiced her frustration of the wait in the ED and I gave her the phone number for the Office of Patient experience. She had no other questions and appreciated the follow up call. Amy Amaya R.N. 05/06/22 [id number] ONCOLOGY RESEARCH documented in this encounter Plan of Treatment Upcoming Encounters Date Type Specialty Care Team Description 06/22/2022 Appointment Laboratory Medicine Rusty Vee M.D. [address] [place] [phone] 06/22/2022 Diagnostic Pulmonary Medicine Rusty Vee M.D. [address] [place] [phone] 06/22/2022 Diagnostic Pulmonary Medicine Rusty Vee M.D. [address] [place] [phone] 06/22/2022 Appointment Radiology Rusty Vee M.D. [address] [place] [phone] 06/23/2022 Clinical Communication Admitting/Central Scheduling 06/28/2022 Appointment Pulmonary Medicine Rusty Vee M.D. [address] [place] [phone] 06/28/2022 Appointment Pulmonary Medicine Rusty Vee M.D. [address] [place] [phone] documented as of this encounter Visit Diagnoses Not on filedocumented in this encounter Care Teams House Player Relationship Specialty Start Date End Date Aura Sandhu APRN, C.N.P., D.N.P. PCP - General 09/25/[address] [place] [phone] documented as of this encounter
--- OUTSIDE RECORDS SUMMARY | 2022-05-25 20:55 | XMS_ITS | Encounter Summary ---
:1975 Author Organization [facility] Address [address] [place] [id number] Care Team Providers Name Role Phone Aura Sandhu APRN C.N.PMichael, D.N.P. Primary Care Provider Reason for Referral Outpatient (Routine) - Authorized Specialty Diagnoses / Procedures Referred By Contact Refer red To Contact Diagnoses Regurgitation Mitral Analy Colmenares APRN, [facility] Procedures ECG 12 Lead C.N.P., D.N.P. [address] [place], [place] [phone] Referral ID Status Reason Start Date Expiration Date Visits V isits Requested Authorized [id number] Authorized 05/06/2022 05/06/2023 1 1 utpatient (Routine) - Authorized Specialty Diagnoses / Procedures Referred By Contact Refer red To Contact Diagnoses Regurgitation Mitral Analy Colmenares APRN, [facility] Procedures Echo Transthoracic (TTE) - Adult Congenital C.N.P., D.N.P. [address] [place] [address] Referral ID Status Reason Start Date Expiration Date Visits V isits Requested Authorized [id number] Authorized 05/06/2022 05/06/2023 1 1 utpatient (Routine) - Authorized Specialty Diagnoses / Procedures Referred By Contact Refer red To Contact Diagnoses Regurgitation Mitral Analy Colmenares APRN, [facility] Procedures DX Chest AP or PA and Lateral 2 Views C.N.P., D.N.P. [address] [place] [phone] Referral ID Status Reason Start Date Expiration Date Visits V isits Requested Authorized [id number] Authorized 05/06/2022 05/06/2023 1 1 utpatient (Routine) - Authorized Specialty Diagnoses / Referred By Contact Referred To Contact Procedures Cardiovascular Diseases / Diagnoses Regurgitation Mitral Analy Colmenares, [facility] Cardiovascular Disease TETE C.N.P., D.N.P. [address] [place] [phone] Referral ID Status Reason Start Date Expiration Date Visits V isits Requested Authorized [id number] Authorized 05/06/2022 05/06/2023 1 1 ATIENT CODING SPECIALIST Reason for Visit Outpatient (Routine) - Closed Specialty Diagnoses / Procedures Referred By Contact Refer red To Contact Cardiovascular Disease Diagnoses Prosthesis Heart Valve Tanya King, [facility] C.N.P. [address] [place] [address] Referral ID Status Reason Start Date Expiration Date Visits Requ ested Visits Authorized [id number] Closed 04/26/2022 04/26/2023 1 1 Encounter Details Date Type Department Care Team Description 05/05/2022 Comprehensive Visit Department of Mike Ornelas Mitral (Primary Dx); Cardiovascular C, M.B.B.S., Prosthesis He art Valve Medicine in [facility] [place], [place] 200 [facility] 200 [place] [phone] Social History Tobacco Use Types Packs/Day Years [...] or relatives? How often do you attend quaker or More than 4 times per year 05/04/2022 taoist services? Do you belong to any clubs or Yes 05/04/2022 organizations such as quaker groups, unions, fraternal or athletic groups, or [...] place to sleep or slept in a detention (including now)? Education Answer Date Recorded What is the highest level of school you have completed or 12 th grade 05/03/2022 the highest degree you have received? Sex Assigned at Date Recorded Female 05/03/2022 7:07 PM OUTPATIENT CODING SPECIALIST documented as of this encounter Last Filed Vital Signs Vital Sign Reading Time Taken Comments Blood Pressure 103/63 05/05/2022 9:41 AM OUTPATIENT CODING SPECIALIST Pulse 72 05/05/2022 9:41 AM OUTPATIENT CODING SPECIALIST Temperature - - Respiratory Rate - - Oxygen Saturation 93% 05/05/2022 9:37 AM OUTPATIENT CODING SPECIALIST Inhaled Oxygen Concentration - - Weight 86.1 kg (189 lb 14.8 oz) 05/05/2022 9:37 AM OUTPATIENT CODING SPECIALIST Height 146.6 cm (4' 9.72) 05/05/2022 9:37 AM OUTPATIENT CODING SPECIALIST Body Mass Index 40.08 05/05/2022 9:37 AM OUTPATIENT CODING SPECIALIST documented in this encounter Consult Notes Mike Ornelas M.B.BMichaelS., [facility] - 05/05/2022 10:00 AM CST SUBJECTIVE ADULT CONGENITAL HEART DISEASE CONSULT NOTE REFERRING PROVIDER: Tanya King C.N.P. PRESENTING COMPLAINT: Down syndrome and transitional AV canal HISTORY OF PRESENT ILLNESS Ms. Hue Medina is a 47 y.o. female with history of Down syndrome and transitional AV canal. 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 Wynne. Prior to surgical repair, patient underwent cardiac catheterization which showed PA pressure 34/15/24 and pulmonary vascular resistance index of 1.6 wood units per meters squared. Interval history The patient was last seen in the [facility] by Dr. Allen in December 2016. At that time, patient was doing well and had no cardiovascular complaints. She returns today for cardiac evaluation. She complains of cough and dyspnea of more than a month duration. Of note, she currently has pneumonia, and has not responded to antibiotics. REVIEW OF SYSTEMS A comprehensive review of systems was completed; pertinent abnormalities areincluded in the History of Present Illness. PAST MEDICAL AND SURGICAL HISTORY Down syndrome Transitional AV canal status post repair Status post cholecystectomy Hospitalization for right leg cellulitis (01/2016) Right let DVT Psoriasis Left humeral fracture s/p ORIF; April 2016. Thrombocytopenia FAMILY AND SOCIAL HISTORY Patient is single and has no children. She lives independently in [place]. No history of smoking oralcohol use. There is no family history of congenital heart disease. MEDICATIONS Current Medications: amoxicillin (AMOXIL) 500 mg capsule, Take 4 capsules (2,000 mg total) by mouth See Admin Instructions. Prior to dental appointments calcipotriene (DOVONEX) 0.005 % ointment, Apply to involved areas on trunk and extremities once daily Mondays- (Patient not taking: Reported on 08/03/2020 ) chlorhexidine (for_PERIDEX) 0.12 % mouthwash, Take 15 mL by mouth at bedtime. clobetasoL (TEMOVATE) 0.05 % ointment, coal tar (PREM-GEL) 0.5 % shampoo, Apply 1 application topically every other day as needed for dandruff. dexAMETHasone sodium phosphate 0.4 % solution, 4 mL by iontophoretic route as needed (Plantar fasciitis pain). multivitamin tablet, Take 2 tablets by mouth daily. OBJECTIVE VITAL SIGNS There were no vitals taken for this visit. Wt Readings from Last 6 Encounters: 08/29/21 78.5 kg 08/03/20 80.7 kg 06/29/20 79.4 kg 12/31/19 74.4 kg 07/10/18 71.9 kg 01/10/17 69.5 kg PHYSICAL EXAMINATION General: Patient is well appearing and not in acute distress. Normal mood and affect. Vessels: No carotid bruits. Normal pedal pulses. Jugular venous pressure normal. Heart: Regular rate and rhythm. Normal precordial impulse. Normal S1 and normal S2. Grade 2 systolicejection murmur at the left and right mid sternal border, and a grade 1 systolic murmur at the apex. Lungs: Bilateral crackles and wheezing. Abdomen: No hepatic enlargement. No masses or tenderness. Extremities: No lower extremity edema. No clubbing or cyanosis of the digits. Skin changes consistent with psoriasis. DIAGNOSTICS I have reviewed the patient's current laboratory, imaging, and other diagnostic studies. Electrocardiogram shows sinus rhythm with left axis deviation Chest x-ray shows stable cardiomegaly with opacity of the lower long segment suggestive of atelectasis. Chest CT shows findings suggestive of multifocal atypical pneumonia. Hepatic steatosis was also noted. Laboratory blood test showed hemoglobin of 12.7, MCV 101, RDW 14.8, platelet 120. Creatinine 1.13 with estimated GFR of 60, fasting glucose 115, TSH 5.9 with free T4 of 0.9. Total cholesterol 177, LDL 109, HDL 43. Assessment ASSESSMENT Down syndrome Transitional AV canal defect status post repair (03/29/2013) [id number] mitral regurgitation Normal RV size with borderline systolic dysfunction No pulmonary hypertension Fasting hyperglycemia Thrombocytopenia Pneumonia Patient is in sinus rhythm, and her cardiac exam shows a grade 1 systolic murmur at the apex which is not suggestive of significant mitral regurgitation. Hence, I do not see a cardiac pathology to explain her symptoms. The history of her symptoms, bilateral crackles on exam, and changes on chest x-rayand CT scan strongly suggest ongoing pneumonia. I will obtain an echocardiogram to complete her cardiac evaluation. Patient should follow-up with her primary care provider with regards to managing her pneumonia. I spoke to the patient and the family, and recommended going to the emergency room if symptoms persist or worsen. PLAN 1. Obtain echocardiogram. 2. Follow-up with primary care provider for management of pneumonia. Please consider going to the emergency room if symptoms persist or worsen. ADDENDUM (05/06/2022) Transthoracic echocardiogram showed moderate to severe mitral regurgitation resulting from multiple jets through cleft mitral valve, mitral valve gradient of 5 mmHg at heart rate of 67 beats per minute, normal left ventricular size with calculated ejection fraction of 70%, mild LVOT stenosis with meangradient of 12 mmHg, [id number] tricuspid regurgitation, mild RV enlargement with mild systolic dysfunction, estimated RVSP of 54 mmHg with normal right heart filling pressures. Compared to her last echocardiogram in 2017, there has been an increase in the severity of mitral regurgitation, mitral valve gradient, and estimated RV systolic pressure. ASSESSMENT Down syndrome Transitional AV canal defect status post repair (03/29/2013) Moderate to severe mitral regurgitation. Mean gradient of 5 mmHg Normal LV size with calculated ejection fraction of 70%. [id number] tricuspid regurgitation Mild RV enlargement with mild systolic dysfunction Mild pulmonary hypertension. Estimated RVSP 54 mmHg Fasting hyperglycemia Thrombocytopenia Pneumonia The results of the echocardiogram was a bit surprising considering how unimpressive her cardiac examwas. Not withstanding, I do not think the severity of mitral regurgitation will explain her symptomswhich are clearly from a pneumonia. I called the patient's mother and left a voicemail regarding this finding. The patient should return for cardiac evaluation in 6-12 months to assess for progressive LV enlargement. ATIENT CODING SPECIALIST Analy Colmenares APRN C.N.P., D.N.P. - 05/05/2022 10:00 AM CST ADULT CONGENITAL HEART DISEASE CONSULTATION Demographic Information Clinic Number: [id number] Patient Name: Hue Medina Age: 47 y.o. Birthdate: 1975 Sex: female Address: [address] [place] [phone] Referring Provider: Tanya King C.N.P. Reason for referral: Transitional AV canal defect s/p repair HISTORY OF PRESENT ILLNESS Ms. Medina is a 47-year-old from [place] who was seen today for transitional AV canal defect s/prepair. She is accompanied to today's visit by her mother and father. Her last visit in the Adult [facility]ital [facility] Disease Clinic was in [address] Arlene Allen. Ms. Medina first established care in 2012 with the [facility]. She is a product of a full-term and was diagnosed with Down syndrome at . The diagnosis of AV canal defect was made within the first few weeks of life. She was followed regularly by Pediatric Cardiology at [facility] however had large lapses in care as an adult. In 2012 at the time of presentation to [facility], she was found to have moderate mitral regurgitation through a cleft mitral valve, with moderate to severe RV enlargement. She underwent hemodynamic catheter assessment which concluded she hadno significant pulmonary vascular disease. She underwent surgical repair with Dr. Wynne on March 29, 2013. She had residual mitral valve regurgitation with a mean gradient across the valve of 4 mmHg. She had no atrial or ventricular level shunt. She was then seen in [address] Allen and was overall doing well. She has not seen Cardiology since this time. She has Down syndrome however lives independently and works full-time. Her mother is her mechanic senior. Since 2016, Ms. Medina has had a number of active health concerns including a fracture of her left humerus requiring surgery, recurrent cellulites and psoriasis. She started Skyrizi in November of 2021 for her psoriasis. In the last three weeks she had developed shortness of breath and cough. She She usually gets pneumonia once a year with quite severe symptoms. Her wheezing has become worse. She was diagnosed with pneumonia and started on a Z-Moses. She had initial improvement however symptoms have now returned and become quite severe. She is coughing at night, no fever or chills. The wheezing a labored breathing is worsening. She is fatigued. She had a CT scan done yesterday which showed findings consistent with atypical pneumonia. She has been referred to Cardiology as well as Pulmonology.She had an NTproBNP addedon which was elevated at 315 on 04/25. Pulmonology evaluation is not until June. She is about to finish a 10 day course of Augmentin. Prior to this acute episode of pneumonia, she had no exertional dyspnea, chest pain or palpitations.She has chronic venous stasis changes in her lower extremities however has no significant edema. No fever or chills. She sleeps on her stomach at night. She has sleep disordered breathing, and was supposed to have a sleep evaluation in May however this has now been postponed due to this recurrentpneumonia. CURRENT MEDICATIONS Current Medications: amoxicillin (AMOXIL) 500 mg capsule, Take 4 capsules (2,000 mg total) by mouth See Admin Instructions. Prior to dental appointments amoxicillin-pot clavulanate (AUGMENTIN) 875-125 mg per tablet, 1 tablet 2 (two) times a day. Endingon 05/05/2022 evening multivitamin tablet, Take 2 tablets by mouth daily. Skyrizi 150 mg/mL pen injector, every 3 (three) months. calcipotriene (DOVONEX) 0.005 % ointment, Apply to involved areas on trunk and extremities once daily Mondays- (Patient not taking: No sig reported) chlorhexidine (for_PERIDEX) 0.12 % mouthwash, Take 15 mL by mouth at bedtime. coal tar (PREM-GEL) 0.5 % shampoo, Apply 1 application topically every other day as needed for dandruff. Allergies Allergen Reactions Bee Venom Protein (Honey Bee) Other (see comments) BEES Chloramphenicol Other (see comments) CHLORAMPHENICOL Quinolones Other (see comments) QUINOLONES - ciloxan eye tts REVIEW OF SYSTEMS Review of systems negative other than noted in HPI PAST MEDICAL/SURGICAL HISTORY MEDICAL HISTORY Transitional AV canal defect Cleft mitral valve History of DVT while on combined oral contraceptive History of cellulitis Obesity Recurrent pneumonia Down syndrome Plantar fasciitis Varicose vein Psoriasis on Skyrizi SURGICAL HISTORY March 29, 2013 repair of transitional AV canal defect with repair of cleft mitral valve Cholecystectomy Humerus fracture 2017 s/p fixation SOCIAL HISTORY Marital Status - Single, lives independently in her own apartment in [place], has family support 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 PHYSICAL EXAM General: Fatigued, dozing off during speech, audible wheezing Skin: Bilateral lower extremity stasis dermatitis, no focal areas of redness or warmth Eyes: No xanthelasma or conjunctivitis. ENT: Normal oral mucosa, no pallor or cyanosis. Vessels: Unable to accurately assess JVP P due to body habitus and inability to lie recumbent. No carotid bruits. Heart: S1/S2, a grade 2/6 systolic murmur heard best at the left sternal border, no parasternal impulse Lungs: Bilateral lower lobe crackles, shallow inspiratory effort Abdomen: Soft, nontender, and nondistended. No hepatomegaly. Extremities: No edema, clubbing or cyanosis. Normal pulses. DIAGNOSTICS I have reviewed the patient's current diagnostic studies. Labs - hemoglobin 12.7, white blood cells 4.1, platelets 120, sodium 140, potassium 4.5 creatinine 1.13, BUN 18, glucose 115, AST 22, total cholesterol 177, HDL 43, LDL 109, triglycerides 142, TSH 5.9 with free T4 0.9, NTproBNP 315 ECG - normal sinus rhythm, heart rate 72 CXR - persistent cardiomegaly since April 25, 2022 with increased pulmonary vascular congestion and mild bilateral mid lower lung predominant airspace and interstitial edema. Echo - Chest CT - patchy bilateral pulmonary ground-glass opacities. Findings suspicious for multifocal atypical pneumonia ASSESSMENT / PLAN #1 Transitional AV septal defect s/p complete repair on March 29, [address] Wynne #2 Cleft mitral valve s/p repair with residual moderate mitral valve regurgitation #3 Mild tricuspid valve regurgitation #4 Trisomy 21 #5 CT findings suggestive of atypical pneumonia refractory to Augmentin and Azithromycin #6 Elevated NTproBNP DISCUSSION Ms. Medina is a 47 year old who presents today with her mother and father for evaluation. She has transitional AV septal defect with complete repair and residual mitral regurgitation. She had been doingwell up until the past 3 weeks when she developed cough, wheezing and was diagnosed with pneumonia. This has been refractory to Augmentin and azithromycin. She had a chest CT scan done yesterday with findings suggestive of atypical pneumonia. This in the presence of treatment for psoriasis with Skyrizi. She has labored breathing and wheezing. I do think she is going to need evaluation in the emergency department as her pulmonology appointment was scheduled in June. From the cardiology standpoint, it would be helpful to have an echo if she is able to lie flat That being said this is not presenting like a worsening of her MR. She is normal rhythm. The NTproBNP can be elevated by the acute infectious process. PLAN: Attempt to complete echo today if able to lie flat. I have asked her to present to the ED for pneumonia treatment, particularly since this is interpreted as atypical, failed two rounds of outpatient antibiotics, and she has recently started a biologic agent for psoriasis I attempted to inform the referring provider of the recommendations, however was not able to connectwith her or the nurse. Will attempt a call back later. Analy Colmenares APRN, C.N.P., D.N.P. 05/05/22 ATIENT CODING SPECIALIST documented in this encounter Plan of Treatment Upcoming Encounters Date Type Specialty Care Team Description 06/22/2022 Appointment Laboratory Medicine Rusty Vee M.D. [address] [place] [phone] 06/22/2022 Diagnostic Pulmonary Medicine Rusty Vee M.D. [address] [place] [phone] 06/22/2022 Diagnostic Pulmonary Medicine Rusty Vee M.D. [address] [place] [phone] 06/22/2022 Appointment Radiology Rusty Vee M.D. [address] [place] [phone] 06/23/2022 Clinical Communication Admitting/Central Scheduling 06/28/2022 Appointment Pulmonary Medicine Rusty Vee M.D. [address] [place] [phone] 06/28/2022 Appointment Pulmonary Rusty Mattson M.D. [address] [place] [phone] Scheduled Orders Name Type Priority Associated Order Schedule Diagnoses Albumin Lab Routine Regurgitation Expected: Mitral 11/03/2022, Expires: 08/06/2023 Alkaline Lab Routine Regurgitation Expected: Phosphatase Mitral 11/03/2022, Expires: 08/06/2023 AST (Aspartate Lab Routine Regurgitation Expected: Aminotransferase) Mitral 11/03/2022 , Expires: 08/06/2023 Bilirubin, Direct Lab Routine Regurgitation Expected: Mitral 11/03/2022, Expires: 08/06/2023 Bilirubin, Total Lab Routine Regurgitation Expected: Mitral 11/03/2022, Expires: 08/06/2023 Calcium, Total Lab Routine Regurgitation Expected: Mitral 11/03/2022, Expires: 08/06/2023 CBC with Lab Routine Regurgitation Expected: Differential, Blood Mitral 11/04/19, Expires: 08/06/2023 Creatinine with Lab Routine Regurgitation Expected: Estimated GFR Mitral 11/03/2022, Expires: 08/06/2023 Glucose, Fasting Lab Routine Regurgitation Expected: Mitral 11/03/2022, Expires: 08/06/2023 Phosphorus Lab Routine Regurgitation Expected: Inorganic Mitral 11/03/2022, Expires: 08/06/2023 Protein, Total Lab Routine Regurgitation Expected: Mitral 11/03/2022, Expires: 08/06/2023 Sodium Lab Routine Regurgitation Expected: Mitral 11/03/2022, Expires: 08/06/2023 Uric Acid Lab Routine Regurgitation Expected: Mitral 11/03/2022, Expires: 08/06/2023 DX Chest AP or PA Imaging RAD - Routine Regurgitation Expected : and Lateral 2 Views (most inpatients Mitral 10/24, and all Expires: outpatients) 08/06/2023 Echo Transthoracic Echocardiography Routine Regurgitation Expe cted: (TTE) - Adult Mitral 11/03/2022, Congenital Expires: 08/06/2023 ECG 12 Lead ECG Routine Regurgitation Expected: Mitral 11/03/2022, Expires: 08/06/2023 Thyroid Function Lab Routine Regurgitation Expected: [place] Mitral 11/03/2022, Expires: 08/06/2023 Scheduled Referrals Name Type Priority Associated Diagnoses Order S [facility] Cardiovascular Disease Outpatient Routine Regurgitation Mitr al Expected: - Adult congenital Referral , heart disease consult s: (clinic) 08/06/2023 documented as of this encounter Visit Diagnoses Diagnosis Regurgitation Mitral - Primary Prosthesis Heart Valve documented in this encounter Care Teams Recreation Therapy Teacher Relationship Specialty Start Date End Date Aura Sandhu APRN, C.N.P., D.N.P. PCP - General 09/25/[address] [place] [phone] documented as of this encounter
--- OUTSIDE RECORDS SUMMARY | 2022-05-25 20:55 | XMS_ITS | Encounter Summary ---
:1975 Author Organization [facility] Address [address] [place] [address] Care Team Providers Name Role Phone Aura Sandhu APRN C.N.P., D.N.P. Primary Care Provider Reason for Visit Reason Comments Cough Encounter Details Date Type Department Care Team Description 05/05/2022 Emergency [facility] Emergency Department [address] [place] [phone] Social History Tobacco Use Types Packs/Day Years [...] or relatives? How often do you attend islam or More than 4 times per year 05/04/2022 druze services? Do you belong to any clubs or Yes 05/04/2022 organizations such as islam groups, unions, fraternal or athletic groups, or [...] place to sleep or slept in a correction (including now)? Education Answer Date Recorded What is the highest level of school you have completed or 12 th grade 05/03/2022 the highest degree you have received? Sex Assigned at Date Recorded Female 05/03/2022 7:07 PM SEO EXPERT documented as of this encounter Last Filed Vital Signs Vital Sign Reading Time Taken Comments Blood Pressure 117/75 05/05/2022 9:06 PM SEO EXPERT Pulse 72 05/05/2022 9:06 PM SEO EXPERT Temperature 36.9 ??C (98.4 ??F) 05/05/2022 9:06 PM SEO EXPERT Respiratory Rate 20 05/05/2022 9:06 PM SEO EXPERT Oxygen Saturation 96% 05/05/2022 9:06 PM SEO EXPERT Inhaled Oxygen Concentration - - Weight 85.6 kg (188 lb 11.4 oz) 05/05/2022 3:55 PM SEO EXPERT Height - - Body Mass Index 39.83 05/05/2022 9:37 AM SEO EXPERT documented in this encounter Medications at Time [...] injector months. documented as of this encounter ED Notes Marissa Morton R.N. - 05/05/2022 4:03 PM CST Patient has atypical pneumonia. Patient has had a cough for the past 3 weeks. Patient has completed 2 courses of antibiotics. Patient still has a strong cough and is wheezing. Marissa Morton R.N. 05/05/22 [id number] EXPERT documented in this encounter Plan of Treatment Upcoming Encounters Date Type Specialty Care Team Description 06/22/2022 Appointment Laboratory Medicine Rusty Vee M.D. [address] [place] [phone] 06/22/2022 Diagnostic Pulmonary Medicine Rusty Vee M.D. [address] [place] [phone] 06/22/2022 Diagnostic Pulmonary Medicine Rusty Vee M.D. [address] [place] [phone] 06/22/2022 Appointment Radiology Rusty Vee M.D. [address] [place] [phone] 06/23/2022 Clinical Communication Admitting/Central Scheduling 06/28/2022 Appointment Pulmonary Medicine Rusty Vee M.D. [address] [place] [phone] 06/28/2022 Appointment Pulmonary Medicine Rusty Vee M.D. [address] [place] [phone] documented as of this encounter Procedures Procedure Name Priority Date/Time Associated Diagnosis Comme nts IFLU A, B, SARS STAT 05/05/2022 6:03 PM Result s for this COV-2, PCR, RAPID,V SEO EXPERT procedur e are in the results section. CBC WITH STAT 05/05/2022 5:19 PM Results f or this DIFFERENTIAL, B SEO EXPERT procedure ar e in the results section. BASIC METABOLIC STAT 05/05/2022 5:19 PM Result s for this PANEL, S/P SEO EXPERT procedure are i n the results section. documented in this encounter Results Influenza A/B, SARS CoV-2, PCR, Rapid, Varies Symptomatic (05/05/2022 6:03 PM SEO EXPERT) [facility] gist Method Time Signature Influenza A, Negative Negative 05/05/2022 [facility] PCR, Rapid, V 6:32 PM SEO EXPERT Influenza B, Negative Negative 05/05/2022 [facility] PCR, Rapid, V 6:32 PM SEO EXPERT SARS CoV-2, Undetected Undetected 05/05/2022 [facility] PCR, Rapid, V 6:32 PM SEO EXPERT Comment: ----ADDITIONAL INFORMATION---- This RT-PCR test was performed using the Sam SARS-CoV-2 and Influenza A/B Reagent assay from [employer]™, which has received Emergency Use Authori zation(EUA) by the U.S. Food and Drug Administration . Fact sheets for this Emergency Use Autho rization (EUA) assay can be found at the following link s: For Healthcare Providers: https://www.fda.gov/media/467917/downloa d For Patients: https://www.fda.gov/media/715016/downloa d Infl A/B, SARS CoV-2, PCR, Source Swab, Nasopharynx 05/05/2022 6:07 PM SEO EXPERT STMA Specimen Anatomical Collection Method Collection Time Receive d Time (Source) Location / / Volume Laterality Swab 05/05/2022 6:03 PM 6:07 (Nasopharynx) SEO EXPERT PM SEO EXPERT Sophia Lovett M.D., M.P.H. LAB MICROBIOLOGY - GENERA L ORDERABLES Performing Organization Address City/State/ZIP Code Phon e Number [facility] - [address] [place] [address] [facility] [place] [address] [facility] [address] (ABNORMAL) Basic Metabolic Panel (05/05/2022 5:19 PM SEO EXPERT) Analysis Performed At [facility] logist Time Signature Potassium, P 4.1 3.6 - 5.2 05/05/2022 [facility] mmol/L 6:01 PM SEO EXPERT Sodium, P 141 135 - 145 05/05/2022 [facility] mmol/L 6:01 PM SEO EXPERT Chloride, P 102 98 - 107 05/05/2022 [facility] mmol/L 6:01 PM SEO EXPERT Bicarbonate, P 31 (H) 22 - 29 05/05/2022 [facility] mmol/L 6:01 PM SEO EXPERT Anion Gap, P 8 7 - 15 05/05/2022 [facility] 6:01 PM SEO EXPERT BUN (Blood Urea 15 6 - 21 05/05/2022 [facility] Nitrogen), P mg/dL 6:01 PM SEO EXPERT Creatinine 1.08 (H) 0.59 - 05/05/2022 [facility] 1.04 mg/dL 6:01 PM SEO EXPERT Estimated GFR 63 >=60 05/05/2022 [facility] (eGFR) mL/min/BSA 6:01 PM SEO EXPERT Comment: Estimated GFR calculated using the 2020 CKD_EPI creatinine equation. Calcium, Total, P 9.2 8.6 - 10.0 mg/dL 05/05/2022 6:01 PM SEO EXPERT STMA Glucose, P 109 70 - 140 mg/dL 05/05/2022 6:01 PM SEO EXPERT S TMA Specimen Anatomical Collection Method Collection Time Receive d Time (Source) Location / / Volume Laterality Blood (Blood, 05/05/2022 5:19 PM 05/05/20 5:44 Venous) SEO EXPERT PM SEO EXPERT Sophia Lovett M.D., M.P.H. LAB BLOOD ADD-ON Performing Organization Address City/State/ZIP Code Phon e Number [facility] - [address] [place] [address] [address] [place] [address] [facility] [address] [facility] (ABNORMAL) CBC with Differential, Blood (05/05/2022 5:19 PM SEO EXPERT) [facility] gist Method Time Signature Hemoglobin 13.2 11.6 - 05/05/2022 [facility] 15.0 g/dL 5:48 PM SEO EXPERT Hematocrit 41.7 35.5 - 05/05/2022 [facility] 44.9 % 5:48 PM SEO EXPERT Erythrocytes 4.03 3.92 - 05/05/2022 [facility] 5.13 5:48 PM SEO EXPERT x10(12)/L MCV 103.5 (H) 78.2 - 05/05/2022 [facility] 97.9 fL 5:48 PM SEO EXPERT RBC Distrib Width 14.6 12.2 - 05/05/2022 [facility] 16.1 % 5:48 PM SEO EXPERT Platelet Count 131 (L) 157 - 371 05/05/2022 [facility] x10(9)/L 10:00 PM SEO EXPERT Comment: Results confirmed by smear, no clumping or interference seen. Leukocytes 4.5 3.4 - 9.6 x10(9)/L 05/05/2022 10:00 PM SEO EXPERT STMA Neutrophils 3.02 1.56 - 6.45 x10(9)/L 05/05/2022 5:48 P M SEO EXPERT STMA Lymphocytes 1.13 0.95 - 3.07 x10(9)/L 05/05/2022 5:48 P M SEO EXPERT ST[facility] Monocytes 0.24 (L) 0.26 - 0.81 x10(9)/L 05/05/2022 5:48 PM SEO EXPERT STMA Eosinophils 0.06 0.03 - 0.48 x10(9)/L 05/05/2022 5:48 P M SEO EXPERT STMA Basophils 0.03 0.01 - 0.08 x10(9)/L 05/05/2022 5:48 PM SEO EXPERT STMA Specimen Anatomical Collection Method Collection Time Receive d Time (Source) Location / / Volume Laterality Blood (Blood, 05/05/2022 5:19 PM 05/05/20 5:44 Venous) SEO EXPERT PM SEO EXPERT Sophia Lovett M.D., M.P.H. LAB BLOOD ADD-ON Performing Organization Address City/State/ZIP Code Phon e Number [facility] - [address] [place], [place] [address] [facility] [place] [address] [facility] [address] documented in this encounter Visit Diagnoses Not on filedocumented in this encounter Administered Medications Inactive Administered Medications - up to 3 most recent administrations Medication Order MAR Action Action Date Dose Rate Site ipratropium-albuteroL 0.5-2.5 mg/3 Given 05/05/2022 4:20 PM SEO EXPERT 3 mL mL nebulizer solution 3 mL (DUONEB) 3 mL, nebulization, Once as needed, wheezing, Starting on Jordyn 05/05/22 at 1602, For 1 dose documented in this encounter Active and Recently Administered Medications Times are shown in SEO EXPERT. PRN Medication Order 05/03/2022 05/04/2022 05/05/2022 ipratropium-albuteroL 0.5-2.5 mg/3 mL ne bulizer solution 3 mL (DUONEB) (COMPLETED) 1620 (Given - Provid er: Gilma McgheeRDesmond, L.R.T.) 3 mL, nebulization, Once as needed, whee zing, Starting on Jordyn 05/05/22 at 1602, For 1 dose documented in this encounter Additional Health Concerns Infection Onset Date Last Indicated Resolved Time COVID19 Pending 05/05/2022 05/05/2022 05/05/2022 6:32 PM SEO EXPERT documented as of this encounter Care Teams Burrer Marker Axle Relationship Specialty Start Date End Date Aura Sandhu APRN, C.N.P., D.N.P. PCP - General 09/25/[address] [place] [phone] documented as of this encounter
--- OUTSIDE RECORDS SUMMARY | 2022-05-25 20:56 | XMS_ITS | Encounter Summary ---
:1975 Author Organization [facility] Address [address] [place] [address] Care Team Providers Name Role Phone Aura Sandhu APRN C.N.P., D.N.P. Primary Care Provider Reason for Visit Reason Comments Cough 46 year old female admits wi th concerns of cough x 9 days. Pt has hx of pneumonia mom is concerned s he might have it. Encounter Details Date Type Department Care Team Description 08/29/2021 Emergency [place] [facility] Prasad Arteaga, Pneumonia (Primary Dx) Department P.A.-C. [address] [place] [address] [place], [place] [phone] Social History Tobacco Use Types Packs/Day [...] or relatives? How often do you attend latter-day or More than 4 times per year 05/04/2022 alevism services? Do you belong to any clubs or Yes 05/04/2022 organizations such as latter-day groups, unions, fraternal or athletic groups, or [...] slept in a senior care (including now)? Sex Assigned at Date Recorded Female 05/03/2022 7:07 PM FOREPART REDUCER documented as of this encounter Last Filed Vital Signs Vital Sign Reading Time Taken Comments Blood Pressure 116/60 08/29/2021 12:34 PM FOREPART REDUCER Pulse 72 08/29/2021 12:34 PM FOREPART REDUCER Temperature 36.4 ??C (97.5 ??F) 08/29/2021 12:34 PM FOREPART REDUCER Respiratory Rate 18 08/29/2021 12:34 PM FOREPART REDUCER Oxygen Saturation 95% 08/29/2021 12:34 PM FOREPART REDUCER Inhaled Oxygen Concentration - - Weight 78.5 kg (173 lb 1 oz) 08/29/2021 12:36 PM FOREPART REDUCER Height - - Body Mass Index 35.6 08/03/2020 2:19 PM FOREPART REDUCER documented in this encounter Discharge Instructions Discharge InstructionsCrPrasad rosario P.A.-C. - 08/29/2021 1:50 PM FOREPART REDUCER Use the antibiotics as prescribed. Robitussin for the cough. Come back if you worsen. PART REDUCER AttachmentsThe following attachments cannot be sent through Care Everywhere. Community-Acquired Pneumonia Adult Egip-cb-Nkym (Uruguayan)documented in this encounter Medications at Time of Discharge Medication Sig Dispensed Refills Start Date End Date amoxicillin (AMOXIL) Take 4 capsules (2,000 12 capsule 10 500 mg capsule mg total) by mouth See Admin Instructions. Prior to dental appointments calcipotriene Apply to involved 60 g 2 03/03/2020 (DOVONEX) 0.005 % areas on trunk and ointment extremities once daily Mondays- chlorhexidine Take 15 mL by mouth at 0 02/21/2016 (for_PERIDEX) 0.12 % bedtime. mouthwash coal tar (PREM-GEL) Apply 1 application 0 0.5 % shampoo topically every other day as needed for dandruff. multivitamin tablet Take 2 tablets by 0 3 mouth daily. clobetasoL (TEMOVATE) 0 04/05/202103/2022 0.05 % ointment dexAMETHasone sodium 4 mL by iontophoretic 25 mL 0 04/2705/05/2022 phosphate 0.4 % route as needed solution (Plantar fasciitis pain). documented as of this encounter ED Notes [...] Diagnoses: as of 08/29/21 1432 Pneumonia Prasad Arteaga P.A.-C. 08/29/21 1437 PART REDUCER documented in this encounter Plan of Treatment Upcoming Encounters Date Type Specialty Care Team Description 06/22/2022 Appointment Laboratory Medicine Rusty Vee M.D. [address] [place] [phone] 06/22/2022 Diagnostic Pulmonary Medicine Rusty Vee M.D. [address] [place] [phone] 06/22/2022 Diagnostic Pulmonary Medicine Rusty Vee M.D. [address] [place] [phone] 06/22/2022 Appointment Radiology Rusty Vee M.D. [address] [place] [phone] 06/23/2022 Clinical Communication Admitting/Central Scheduling 06/28/2022 Appointment Pulmonary Medicine Rusty Vee M.D. [address] [place] [phone] 06/28/2022 Appointment Pulmonary Medicine Rusty Vee M.D. [address] [place] [phone] documented as of this encounter Procedures Procedure Name Priority Date/Time Associated Comments Diagnosis DX CHEST PORTABLE 1 RAD - Semiurgent 08/29/2021 12:58 Results for this VIEW (Fast; most ED PM FOREPART REDUCER procedure are in patients; some the results inpatients) section. SARS CORONAVIRUS 2, STAT 08/29/2021 12:42 Resu lts for this PCR RAPID, V PM FOREPART REDUCER procedure are i n the results section. documented in this encounter Results DX Chest Portable 1 View (08/29/2021 12:58 PM FOREPART REDUCER) Anatomical Region Laterality Modality Chest, Thoracic RST LOS, Thoracic ARZ LOS, Thoracic N/A Computed Radiography FLA LOS Specimen (Source) Anatomical Collection Method Collection Time Re ceived Time Location / / Volume Laterality 08/29/2021 3:53 PM FOREPART REDUCER Impressions 08/29/2021 3:54 PM FOREPART REDUCER No focal pulmonary consolidation. Prior right pericardial fat pad, unchanged. Heart size within normal limits. Sternotomy. Compar greg CT September 16, 2019. Trace right fissural fluid and minimal basilar pulmonary interstitial o pacity could be traced pulmonary edema. Narrative 08/29/2021 3:54 PM FOREPART REDUCER EXAM: DX CHEST PORTABLE 1 VIEW Procedure [...] Prasad Arteaga P.A.-C. IMG DIAGNOSTIC IMAGING PROCE DUR SARS Coronavirus 2, PCR Rapid, V Symptomatic (08/29/2021 12:42 PM FOREPART REDUCER) [facility] Method Time Signature SARS CoV-2, Undetected Undetected 08/29/2021 CNFL PCR, Rapid, V 1:11 PM FOREPART REDUCER Comment: ----ADDITIONAL INFORMATION---- This RT-PCR test was performed using the Sam SARS-CoV-2 and Influenza A/B Reagent assay from [employer], which has received Emergency Use Authori zation(EUA) by the U.S. Food and Drug Administration . Fact sheets for this Emergency Use Autho rization (EUA) assay can be found at the following link s: For Healthcare Providers: https://www.fda.gov/media/273455/downloa d For Patients: https://www.fda.gov/media/554110/downloa d SARS Coronavirus 2, Source, Swab, Nasopharynx 11/2021 12:49 PM FOREPART REDUCER CNFL Rapid Specimen Anatomical Collection Method Collection Time Receive d Time (Source) Location / / Volume Laterality Varies 08/29/2021 12:42 08/29/2021 (Nasopharynx) PM FOREPART REDUCER 12:49 PM FOREPART REDUCER Prasad Arteaga P.A.-C. LAB MICROBIOLOGY - GENERAL O RDERABLES Performing Organization Address City/State/ZIP Code Phon e Number [facility]- [address] [place] [address] [place] [address] [address] documented in this encounter Visit Diagnoses Diagnosis Pneumonia - Primary documented in this encounter Additional Health Concerns Infection Onset Date Last Indicated Resolved Time COVID19 Pending 08/29/2021 08/29/2021 08/29/2021 1:11 PM FOREPART REDUCER documented as of this encounter Care Teams Blockman Relationship Specialty Start Date End Date Aura Sandhu APRN, C.N.P., D.N.P. PCP - General 09/25/[address] [place] [phone] documented as of this encounter
--- OUTSIDE RECORDS SUMMARY | 2022-05-25 20:56 | XMS_ITS | Encounter Summary ---
:1975 Author Organization [facility] Address [address] [place] [address] Care Team Providers Name Role Phone Aura Sandhu APRN C.N.PMichael, D.N.P. Primary Care Provider Reason for Referral Outpatient (Routine) - Authorized Specialty Diagnoses / Procedures Referred By Contact Refer red To Contact Family Medicine Aura Sandhu APRN, [facility] C.N.P., D.N.P. [address] [place] [phone] Referral ID Status Reason Start Date Expiration Date Visits V isits Requested Authorized [id number] Authorized 11/30/2021 11/30/2022 1 1 Encounter Details Date Type Department Care Team Description 11/30/2021 Orders Only [facility] PCP TH MNT Sa blanca Duke M.D. [address] [place], [place] [phone] [...] or relatives? How often do you attend jainism or More than 4 times per year 05/04/2022 hindu services? Do you belong to any clubs or Yes 05/04/2022 organizations such as jainism groups, unions, fraternal or athletic groups, or [...] place to sleep or slept in a snf (including now)? Sex Assigned at Date Recorded Female 05/03/2022 7:07 PM SPECIALTY DEVELOPMENT CONSULTANT documented as of this encounter Plan of Treatment Upcoming Encounters Date Type Specialty Care Team Description 06/22/2022 Appointment Laboratory Medicine Rusty Vee M.D. [address] [place] [phone] 06/22/2022 Diagnostic Pulmonary Medicine Rusty Vee M.D. [address] [place] [phone] 06/22/2022 Diagnostic Pulmonary Medicine Rusty Vee M.D. [address] [place] [phone] 06/22/2022 Appointment Radiology Rusty Vee M.D. [address] [place] [phone] 06/23/2022 Clinical Communication Admitting/Central Scheduling 06/28/2022 Appointment Pulmonary Medicine Rusty Vee M.D. [address] [place] [phone] 06/28/2022 Appointment Pulmonary Medicine Rusty Vee M.D. [address] [place] [phone] Scheduled Referrals Name Type Priority Associated Diagnoses Order S [facility] Family Medicine Outpatient Referral Routine Expec nelson: office visit 12/14/2021, (clinic) Expires: 05/29/2022 documented as of this encounter Visit Diagnoses Not on filedocumented in this encounter Care Teams Photographic Reproduction Technician Relationship Specialty Start Date End Date Aura Sandhu APRN, C.N.P., D.N.P. PCP - General 09/25/[address] [place] [phone] documented as of this encounter
--- OUTSIDE RECORDS SUMMARY | 2022-05-25 20:56 | XMS_ITS | Encounter Summary ---
:1975 Author Organization [facility] Address [address] [place] [phone] Care Team Providers Name Role Phone Aura Sandhu APRN, C.N.P., D.N.P. Primary Care Provider Encounter Details Date Type Department Care Team Description 03/01/2022 Orders Only [facility] Aura Sandhu, Scre ening Examination Diabetes Mellitus; MNT TETE, C.N.P., Hyperlipidemia Mixed D.N.P. [address] [place] [phone] Social History Tobacco Use Types Packs/Day Years [...] or relatives? How often do you attend cheondoism or More than 4 times per year 05/04/2022 advent services? Do you belong to any clubs or Yes 05/04/2022 organizations such as cheondoism groups, unions, fraternal or athletic groups, or [...] place to sleep or slept in a skilled nursing (including now)? Sex Assigned at Date Recorded Female 05/03/2022 7:07 PM BAND MASTER documented as of this encounter Plan of Treatment Upcoming Encounters Date Type Specialty Care Team Description 06/22/2022 Appointment Laboratory Medicine Rusty Vee M.D. [address] [place] [phone] 06/22/2022 Diagnostic Pulmonary Medicine Rusty Vee M.D. [address] [place] [phone] 06/22/2022 Diagnostic Pulmonary Medicine Rusty Vee M.D. [address] [place] [phone] 06/22/2022 Appointment Radiology Rusty Vee M.D. [address] [place] [phone] 06/23/2022 Clinical Communication Admitting/Central Scheduling 06/28/2022 Appointment Pulmonary Medicine Rusty Vee M.D. [address] [place] [phone] 06/28/2022 Appointment Pulmonary Medicine Rusty Vee M.D. [address] [place] [phone] documented as of this encounter Results (ABNORMAL) Lipid Panel (05/04/2022 7:58 AM BAND MASTER) athologist Signature Triglycerides 142 mg/dL 05/04/2022 CNFL 8:24 AM BAND MASTER Comment: ----REFERENCE VALUE---- Normal: <150 mg/dL Borderline High: 150-199 mg/dL High: 200-499 mg/dL Very High: > or =500 mg/dL Cholesterol, Total 177 mg/dL 05/04/2022 8:24 AM T CNFL Comment: ----REFERENCE VALUE---- Desirable: < 200 mg/dL Borderline High: 200 - 239 mg/dL High: > or = 240 mg/dL Cholesterol, LDL, Calculated 109 mg/dL 05/04/2022 8:24 AM BAND MASTER CNFL Comment: ----REFERENCE VALUE---- Desirable: <100 mg/dL Above Desirable: 100-129 mg/dL Borderline High: 130-159 mg/dL High: 160-189 mg/dL Very High: >=190 mg/dL ----ADDITIONAL INFORMATION---- LDL cholesterol calculated using the Shelby/NIH equation. Cholesterol, HDL 43 (L) >=50 mg/dL 05/04/2022 8:24 AM BAND MASTER CNFL Cholesterol, Non-HDL, Calculated 134 mg/dL 022 8:24 AM BAND MASTER CNFL Comment: ----REFERENCE VALUE---- Desirable: <130 mg/dL Above Desirable: 130-159 mg/dL Borderline High: 160-189 mg/dL High: 190-219 mg/dL Very High: > or =220 mg/dL Fasting (8 HR or more) Yes 05/04/2022 7:59 A M BAND MASTER CNFL Specimen Anatomical Collection Method Collection Time Receive d Time (Source) Location / / Volume Laterality Blood (Blood, 05/04/2022 7:58 AM 05/04/20 7:59 Venous) BAND MASTER AM BAND MASTER Aura Sandhu APRN, C.N.P., D.N.P. LAB BLOOD ADD-ON Performing Organization Address City/State/ZIP Code Phon e Number [id number] [place] [address] [place] [address] System in [address] (ABNORMAL) Glucose, Fasting (05/04/2022 7:58 AM BAND MASTER) P athologist Signature Glucose, P 115 (H) 70 - 100 05/04/2022 CNFL mg/dL 8:21 AM BAND MASTER Last Intake 14 hr 05/04/2022 CNFL 7:59 AM BAND MASTER Specimen Anatomical Collection Method Collection Time Receive d Time (Source) Location / / Volume Laterality Blood (Blood, 05/04/2022 7:58 AM 05/04/20 7:59 Venous) BAND MASTER AM BAND MASTER Aura Juan Sandhu APRN, C.N.P., D.N.P. LAB BLOOD NON ADD -ON Performing Organization Address City/State/ZIP Code Phon e Number [facility]- [address] [place] [address] [place] [address] System in [address] documented in this encounter Visit Diagnoses Diagnosis Screening Examination Diabetes Mellitus Hyperlipidemia Mixed documented in this encounter Care Teams Control And Recovery Special Tactics Relationship Specialty Start Date End Date Aura Sandhu APRN, C.N.P., D.N.P. PCP - General 09/25/[address] [place] [phone] documented as of this encounter
--- OUTSIDE RECORDS SUMMARY | 2022-05-25 20:56 | XMS_ITS | Encounter Summary ---
:1975 Author Organization [facility] Address [address] [place] [address] Care Team Providers Name Role Phone Aura Sandhu APRN C.N.Jayna, D.N.P. Primary Care Provider Reason for Referral MRI/CAT/PET Scan (Routine) - Closed Specialty Diagnoses / Procedures Referred By Contact Refer red To Contact Radiology Diagnoses Abnormal Findings On Diagnostic Imaging Of Other Specified Body Structures Tanya King C.N.PMichael [place] Procedures CT Chest with IV Contrast [address] [place], [place] [address] Referral ID Status Reason Start Date Expiration Date Visits Requ ested Visits Authorized [id number] Closed 05/02/2022 05/02/2023 1 1 INSPECTION AND REPAIR MANAGER Reason for Visit MRI/CAT/PET Scan (Routine) - Closed Specialty Diagnoses / Procedures Referred By Contact Refer red To Contact Radiology Diagnoses Abnormal Findings On Diagnostic Imaging Of Other Specified Body Structures Tanya King C.N.PMichael [place] Procedures CT Chest with IV Contrast [address] [place], [place] [address] Referral ID Status Reason Start Date Expiration Date Visits Requ ested Visits Authorized [id number] Closed 05/02/2022 05/02/2023 1 1 Encounter Details Date Type Department Care Team Description 05/04/2022 Hospital Encounter Department of King, Tanya Abn ormal Findings Radiology in Seth Martinez C.N.P. On Diagnostic [place], [place] [address] Imaging Of Other [address] [place] [address] [address] [address] Structures [place], [place] [phone] (Work) [phone] Social History Tobacco Use Types Packs/Day Years [...] or relatives? How often do you attend mosque or More than 4 times per year 05/04/2022 mandaeism services? Do you belong to any clubs or Yes 05/04/2022 organizations such as mosque groups, unions, fraternal or athletic groups, or [...] place to sleep or slept in a intermediate (including now)? Education Answer Date Recorded What is the highest level of school you have completed or 12 th grade 05/03/2022 the highest degree you have received? Sex Assigned at Date Recorded Female 05/03/2022 7:07 PM CAR INSPECTION AND REPAIR MANAGER documented as of this encounter Medications at Time of Discharge Medication Sig Dispensed Refills Start Date End Date amoxicillin (AMOXIL) Take 4 capsules (2,000 12 capsule 10 500 mg capsule mg total) by mouth See Admin Instructions. Prior to dental appointments amoxicillin-pot 1 tablet 2 (two) times 0 04/26/20 22 clavulanate a day. Ending on (AUGMENTIN) 875-125 mg 05/05/2022 evening per tablet calcipotriene Apply to involved 60 g 2 [...] every 3 (three) 0 2 injector months. clobetasoL (TEMOVATE) 0 04/05/202103/2022 0.05 % ointment dexAMETHasone sodium 4 mL by iontophoretic 25 mL 0 04/2705/05/2022 phosphate 0.4 % route as needed solution (Plantar fasciitis pain). documented as of this encounter Plan of Treatment Upcoming Encounters Date Type Specialty Care Team Description 06/22/2022 Appointment Laboratory Medicine Rusty Vee M.D. [address] [place] [phone] 06/22/2022 Diagnostic Pulmonary Medicine Rusty Vee M.D. [address] [place] [phone] 06/22/2022 Diagnostic Pulmonary Medicine Rusty Vee M.D. [address] [place] [phone] 06/22/2022 Appointment Radiology Rusty Vee M.D. [address] [place] [phone] 06/23/2022 Clinical Communication Admitting/Central Scheduling 06/28/2022 Appointment Pulmonary Medicine Rusty Vee M.D. [address] [place] [phone] 06/28/2022 Appointment Pulmonary Medicine Rusty Vee M.D. [address] [place] [phone] documented as of this encounter Procedures Procedure Name Priority Date/Time Associated Comments Diagnosis CT CHEST WITH IV RAD - Routine 05/04/2022 8:24 Abnormal Findings Re sults for this CONTRAST (most inpatients AM CAR INSPECTION AND REPAIR MANAGER On Diagnostic procedure are in and all Imaging Of Other the results outpatients) Specified Body section. Structures documented in this encounter Results CT Chest with IV Contrast (05/04/2022 8:24 AM CAR INSPECTION AND REPAIR MANAGER) Anatomical Region Laterality Modality Chest, Thoracic RST LOS, Thoracic ARZ LOS, Thoracic N/A Computed Tomography ARZ LOS, Thoracic FLA LOS Specimen (Source) Anatomical Collection Method Collection Time Re ceived Time Location / / Volume Laterality 05/04/2022 8:35 AM CAR INSPECTION AND REPAIR MANAGER Impressions 05/04/2022 9:30 AM CAR INSPECTION AND REPAIR MANAGER 1. ??Findings suspicious for multifocal atypical pneumonia. 2. ??Hepatic steatosis. Narrative 05/04/2022 9:30 AM CAR INSPECTION AND REPAIR MANAGER EXAM: CT CHEST WITH IV CONTRAST 3D/MIPS: [...] at ypical pneumonia. 2. Hepatic steatosis. Tanya BENNETT CT PROCEDURES documented in this encounter Visit Diagnoses Diagnosis Abnormal Findings On Diagnostic Imaging Of Other Specified Body Structures documented in this encounter Administered Medications Inactive Administered Medications - up to 3 most recent administrations Medication Order MAR Action Action Date Dose Rate Site iohexoL (OMNIPAQUE) 300 mg iodine/mL yarelis ution - ADS Override Pull Starting on Mon05/04/22 at 0748, For 1 dose, Created b y cabinet override iohexoL 300 mg iodine/mL solution 80 mL Given 05/04/2022 8:18 AM CAR INSPECTION AND REPAIR MANAGER 80 mL (OMNIPAQUE) 80 mL, intravenous, Once in imaging, contrast, Starting on Mon05/04/22 at 0743, For 1 dose sodium chloride 0.9 % flush 80 mL Given 05/04/2022 8:18 AM CAR INSPECTION AND REPAIR MANAGER 80 mL 80 mL, intravenous, Once, On Mon05/04/22 at 0745, For 1 dose sodium chloride 0.9 % injection 10 mL Given 05/04/2022 8:18 AM CAR INSPECTION AND REPAIR MANAGER 10 mL 10 mL, intravenous, Once, On Mon05/04/22 at 0745, For 1 dose documented in this encounter Care Teams Tie Worker Relationship Specialty Start Date End Date Aura Sandhu APRN, C.N.P., D.N.P. PCP - General 09/25/[address] [place] [phone] documented as of this encounter
--- OUTSIDE RECORDS SUMMARY | 2022-05-25 20:56 | XMS_ITS | Encounter Summary ---
:1975 Author Organization [facility] Address [address] [place] [address] Care Team Providers Name Role Phone Aura Sandhu APRN C.N.P., D.N.P. Primary Care Provider Encounter Details Date Type Department Care Team Description 05/03/2022 Orders Only Department of Cardiovascular Timoteo Ornelas, Medicine in [place], .B.BMichaelS., M.P.H. [place] [address] [place] [address] [address] [place] [phone] (Wo rk) Social History Tobacco Use Types [...] More than 4 times per year 05/04/2022 catholic services? Do you belong to any clubs [...] place to sleep or slept in a custodial (including now)? Education Answer Date Recorded What is the highest level of school you have completed or 12 th grade 05/03/2022 the highest degree you have received? Sex Assigned at Date Recorded Female 05/03/2022 7:07 PM CO FOUNDER AND CHAIRMAN documented as of this encounter Plan of Treatment Upcoming Encounters Date Type Specialty Care Team Description 06/22/2022 Appointment Laboratory Medicine Rusty Vee M.D. [address] [place] [phone] 06/22/2022 Diagnostic Pulmonary Medicine Rusty Vee M.D. [address] [place] [phone] 06/22/2022 Diagnostic Pulmonary Medicine Rusty Vee M.D. [address] [place] [phone] 06/22/2022 Appointment Radiology Rusty Vee M.D. [address] [place] [phone] 06/23/2022 Clinical Communication Admitting/Central Scheduling 06/28/2022 Appointment Pulmonary Medicine Rusty Vee M.D. [address] [place] [phone] 06/28/2022 Appointment Pulmonary Medicine Rusty Vee M.D. [address] [place] [phone] documented as of this encounter Visit Diagnoses Not on filedocumented in this encounter Additional Health Concerns Infection Onset Date Last Indicated Resolved Time COVID19 Pending 05/05/2022 05/05/2022 05/05/2022 6:32 PM CO FOUNDER AND CHAIRMAN documented as of this encounter Care Teams Clinic Manager Relationship Specialty Start Date End Date Aura Sandhu APRN, C.N.P., D.N.P. PCP - General 09/25/[address] [place] [phone] documented as of this encounter
--- OUTSIDE RECORDS SUMMARY | 2022-05-25 20:56 | XMS_ITS | Encounter Summary ---
:1975 Author Organization [facility] Address [address] [place] [address] Care Team Providers Name Role Phone Aura Sandhu APRN C.N.P., D.N.P. Primary Care Provider Reason for Referral Outpatient (Routine) - Authorized Specialty Diagnoses / Procedures Referred By Contact Refer red To Contact Diagnoses Chronic Cough Rusty Vee M.D. [facility] Procedures DX Chest AP or PA and Lateral 2 Views [address] [place] [phone] Referral ID Status Reason Start Date Expiration Date Visits V isits Requested Authorized [id number] Authorized 04/29/2022 04/29/2023 1 1 Encounter Details Date Type Department Care Team Description 04/28/2022 Clinical Communication Division of Pulmonary Quoc Vee, Medicine in [place] [place] [address] [place] [address] [place] [phone] Social History Tobacco Use Types Packs/Day Years [...] or relatives? How often do you attend voodoo or More than 4 times per year 05/04/2022 temple services? Do you belong to any clubs or Yes 05/04/2022 organizations such as voodoo groups, unions, fraternal or athletic groups, or [...] place to sleep or slept in a group home (including now)? Sex Assigned at Date Recorded Female 05/03/2022 7:07 PM TRAVEL MONEY ADVISOR documented as of this encounter Miscellaneous Notes Telephone Encounter - Alvina Valentino - 04/28/2022 12:24 PM CDT Victoriano, Patient is coming for a new Cough consult. Date: 06/28/22 Please sign pending orders for previsit testing. Thank you! documented in this encounter Plan of Treatment Upcoming Encounters Date Type Specialty Care Team Description 06/22/2022 Appointment Laboratory Medicine Rusty Vee M.D. [address] [place] [phone] 06/22/2022 Diagnostic Pulmonary Medicine Rusty Vee M.D. [address] [place] [phone] 06/22/2022 Diagnostic Pulmonary Medicine Rusty Vee M.D. [address] [place] [phone] 06/22/2022 Appointment Radiology Rusty Vee M.D. [address] [place] [phone] 06/23/2022 Clinical Communication Admitting/Central Scheduling 06/28/2022 Appointment Pulmonary Medicine Rusty Vee M.D. [address] [place] [phone] 06/28/2022 Appointment Pulmonary Medicine Rusty Vee M.D. [address] [place] [phone] Scheduled Orders Name Type Priority Associated Order Schedule Diagnoses Pulmonary Function Tests PFT Routine Chronic Cough Ex pected: 06/24/2022, Expires: 07/29/2023 PUL Exhaled Nitric Oxide PFT Routine Chronic Cough Ex pected: 06/24/2022, Expires: 07/29/2023 CBC with Differential, Lab Routine Chronic Cough Expe cted: Blood 06/24/2022, Expires: 07/29/2023 Comprehensive Metabolic Lab Routine Chronic Cough Exp ected: Panel 06/24/2022, Expires: 07/29/2023 DX Chest AP or PA and Imaging RAD - Routine Chronic Cough Expe cted: Lateral 2 Views (most inpatients 06/24/20 22, and all Expires: outpatients) 07/29/2023 Rhinolaryngoscopy PFT Routine Chronic Cough Expected: 06/24/2022, Expires: 07/29/2023 documented as of this encounter Visit Diagnoses Diagnosis Chronic Cough - Primary documented in this encounter Care Teams Casting House Worker Relationship Specialty Start Date End Date Aura Sandhu APRN, C.N.P., D.N.P. PCP - General 09/25/[address] [place] [phone] documented as of this encounter
--- OUTSIDE RECORDS SUMMARY | 2022-05-25 20:56 | XMS_ITS | Encounter Summary ---
:1975 Author Organization [facility] Address [address] [place] [address] Care Team Providers Name Role Phone Aura Sandhu APRN C.N.PMcihael, D.N.P. Primary Care Provider Reason for Referral Outpatient (Routine) - Closed Specialty Diagnoses / Procedures Referred By Contact Refer red To Contact Diagnoses Defect Atrial Ventricular Canal Complete (HCC) Mike Ornelas [place] Procedures Echo Transthoracic (TTE) - Adult Congenital Kenyon, M.P.H. 200 [place] [phone] Referral ID Status Reason Start Date Expiration Date Visits Requ ested Visits Authorized [id number] Closed 05/03/2022 05/03/2023 1 1 utpatient (Routine) - Closed Specialty Diagnoses / Procedures Referred By Contact Refer red To Contact Diagnoses Defect Atrial Ventricular Canal Complete (HCC) Mike Ornelas [place] Procedures ECG 12 Lead Kenyon, M.P.H. 200 [place] [phone] Referral ID Status Reason Start Date Expiration Date Visits Requ ested Visits Authorized [id number] Closed 05/03/2022 05/03/2023 1 1 utpatient (Routine) - Closed Specialty Diagnoses / Procedures Referred By Contact Refer red To Contact Diagnoses Defect Atrial Ventricular Canal Complete (HCC) Mike Ornelas [place] Procedures DX Chest AP or PA and Lateral 2 Views Kenyon, M.P.H. [address] [place] [address] Referral ID Status Reason Start Date Expiration Date Visits Requ ested Visits Authorized [id number] Closed 05/03/2022 05/03/2023 1 1 MANAGER Encounter Details Date Type Department Care Team Description 05/03/2022 Orders Only Department of Kathy Frost Defect A trial Cardiovascular Medicine R.N. Ventricular Canal in [facility] chidi [address] [facility] Complete (HCC) [address] [place], [place] (Primary Dx) [place] [phone] Social History Tobacco Use Types Packs/Day Years [...] or relatives? How often do you attend congregation or More than 4 times per year 05/04/2022 christianity services? Do you belong to any clubs or Yes 05/04/2022 organizations such as congregation groups, unions, fraternal or athletic groups, or [...] at Date Recorded Female 05/03/2022 7:07 PM SPD MANAGER documented as of this encounter Plan of Treatment Upcoming Encounters Date Type Specialty Care Team Description 06/22/2022 Appointment Laboratory Medicine Rusty Vee M.D. [address] [place] [phone] 06/22/2022 Diagnostic Pulmonary Medicine Rusty Vee M.D. [address] [place] [phone] 06/22/2022 Diagnostic Pulmonary Medicine Rusty Vee M.D. [address] [place] [phone] 06/22/2022 Appointment Radiology Rusty Vee M.D. [address] [place] [phone] 06/23/2022 Clinical Communication Admitting/Central Scheduling 06/28/2022 Appointment Pulmonary Medicine Rusty Vee M.D. [address] [place] [phone] 06/28/2022 Appointment Pulmonary Medicine Rusty Vee M.D. 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 Abnormal [...] Order-L evel Documents. Narrative 05/05/2022 4:03 PM SPD MANAGER For the complete report, see the Order-Level Documents. Hemodynamics Heart Rate: 68 BPM Blood Pressure: 98 / 60 mmHg ECG: Sinus rhythm Final Impressions 1. 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 2. 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 2. Moderate-severe mitral valve regurgit ation [...] report, see the Order-L evel Documents. Mike CarranzaBMichaelSMichael, M.P.H. CV ECHO PROCEDURES DX Chest AP or PA and Lateral 2 Views (05/04/2022 8:26 AM SPD MANAGER) Anatomical Region Laterality Modality Chest, Thoracic RST LOS, Thoracic ARZ LOS, Thoracic N/A Digital Radiography FLA LOS Specimen (Source) Anatomical Collection Method Collection Time Re ceived Time Location / / Volume Laterality 05/04/2022 9:25 AM SPD MANAGER Impressions 05/04/2022 9:27 AM SPD MANAGER Since 04/25/2022, persistent cardiomegaly with increased pulmonary vascular congestion and bilateral mid-lower lung predominant airspace and interstitial opacities/edema. Remainder not significantly changed. No pneumothorax. Probable small bilatera l pleural effusions. Sternotomy. Narrative 05/04/2022 9:27 AM SPD MANAGER EXAM: DX CHEST AP OR PA AND [...] small bilatera l pleural effusions. Sternotomy. Mike CarranzaBMichaelS., M.P.H. IMG DIAGNOSTIC IMAGI NG PROCEDURES ECG 12 Lead (05/04/2022 8:01 AM SPD MANAGER) P athologist Signature Ventricular Rate 72 BPM MUSE ECG/Min ME Interval 164 ms MUSE QRSD Interval 88 ms MUSE QT Interval 394 ms MUSE QTC Interval 431 ms MUSE P [place] 22 degrees MUSE R [place] -17 degrees MUSE T Wave [place] 18 degrees MUSE Specimen Anatomical Collection Method Collection Time Receive d Time (Source) Location / / Volume Laterality 05/04/2022 8:01 AM 8:08 SPD MANAGER AM SPD MANAGER Impressions MUSE - 05/04/2022 8:08 AM SPD MANAGER Normal sinus rhythm Nonspecific ST abnormality When [...] Code Phon e Number MUSE MUSE NA (ABNORMAL) Thyroid Function [place] (05/04/2022 7:58 AM SPD MANAGER) athologist Signature TSH, Sensitive 5.9 (H) 0.3 - 4.2 05/04/2022 CNFL mIU/L 9:18 AM SPD MANAGER Specimen Anatomical Collection Method Collection Time Receive d Time (Source) Location / / Volume Laterality Blood (Blood, 05/04/2022 7:58 AM 05/04/20 22 7:59 Venous) SPD MANAGER AM SPD MANAGER Mike Prescott, M.P.H. LAB BLOOD ADD-ON Performing Organization Address City/State/ZIP Code Phon e Number [place] [address] [place] [address] [place] [address] System in [place] [address] Sodium (05/04/2022 7:58 AM SPD MANAGER) athologist Signature Sodium, P 140 135 - 145 05/04/2022 8:24 CNFL mmol/L AM SPD MANAGER Specimen Anatomical Collection Method Collection Time Receive d Time (Source) Location / / Volume Laterality Blood (Blood, 05/04/2022 7:58 AM 11/09/20 22 7:59 Venous) SPD MANAGER AM SPD MANAGER Mike Prescott, M.P.H. LAB BLOOD ADD-ON Performing Organization Address City/State/ZIP Code Phon e Number [address] [address] [place] [address] System in [place] [address] Potassium (05/04/2022 7:58 AM SPD MANAGER) P athologist Signature Potassium, P 4.5 3.6 - 5.2 05/04/2022 CNFL mmol/L 8:24 AM SPD MANAGER Specimen Anatomical Collection Method Collection Time Receive d Time (Source) Location / / Volume Laterality Blood (Blood, 05/04/2022 7:58 AM 05/04/20 7:59 Venous) SPD MANAGER AM SPD MANAGER Mike Prescott, M.P.H. LAB BLOOD ADD-ON Performing Organization Address [facility]/ZIP Code Phon e Number [address] [address] [place] [address] (ABNORMAL) Creatinine with Estimated GFR (05/04/2022 7:58 AM SPD MANAGER) Analysis Performed At Patho logist Time Signature Creatinine 1.13 (H) 0.59 - 05/04/2022 CNFL 1.04 mg/dL 8:24 AM SPD MANAGER Estimated GFR 60 >=60 05/04/2022 CNFL (eGFR) mL/min/BSA 8:24 AM SPD MANAGER Comment: Estimated GFR calculated using the 2020 CKD_EPI creatinine equation. Specimen Anatomical Collection Method Collection Time Receive d Time (Source) Location / / Volume Laterality Blood (Blood, 05/04/2022 7:58 AM 05/04/20 7:59 Venous) SPD MANAGER AM SPD MANAGER Mike Prescott, M.P.H. LAB BLOOD ADD-ON Performing Organization Address City/[facility]/ZIP Code Phon e Number [address] [address] [place] [address] System in [place] [address] [address] (ABNORMAL) CBC with Differential, Blood (05/04/2022 7:58 AM SPD MANAGER) [facility] gist Method Time Signature Hemoglobin 12.7 11.6 - 05/04/2022 CNFL 15.0 g/dL 8:05 AM SPD MANAGER Hematocrit 40.0 35.5 - 05/04/2022 CNFL 44.9 % 8:05 AM SPD MANAGER Erythrocytes 3.94 3.92 - 05/04/2022 CNFL 5.13 8:05 AM SPD MANAGER x10(12)/L MCV 101.5 (H) 78.2 - 05/04/2022 CNFL 97.9 fL 8:05 AM SPD MANAGER RBC Distrib Width 14.8 12.2 - 05/04/2022 CNFL 16.1 % 8:05 AM SPD MANAGER Platelet Count 120 (L) 157 - 371 05/04/2022 CNFL x10(9)/L 8:05 AM SPD MANAGER Leukocytes 4.1 3.4 - 9.6 05/04/2022 CNFL x10(9)/L 8:05 AM SPD MANAGER Neutrophils 3.07 1.56 - 05/04/2022 CNFL 6.45 8:05 AM SPD MANAGER x10(9)/L Lymphocytes 0.70 (L) 0.95 - 05/04/2022 CNFL 3.07 8:05 AM SPD MANAGER x10(9)/L Monocytes 0.28 0.26 - 05/04/2022 CNFL 0.81 8:05 AM SPD MANAGER x10(9)/L Eosinophils 0.04 0.03 - 05/04/2022 CNFL 0.48 8:05 AM SPD MANAGER x10(9)/L Basophils <0.04 0.01 - 05/04/2022 CNFL 0.08 8:05 AM SPD MANAGER x10(9)/L Specimen Anatomical Collection Method Collection Time Receive d Time (Source) Location / / Volume Laterality Blood (Blood, 05/04/2022 7:58 AM 05/04/20 7:59 Venous) SPD MANAGER AM SPD MANAGER Authorizing Provider Result Francia Jackson., M.P.H. LAB BLOOD ADD-ON Performing Organization Address City/State/ZIP Code Phon e Number [address] [address] [place] [address] System in [place] [address] [address] BUN (Blood Urea Nitrogen) (05/04/2022 7:58 AM SPD MANAGER) P athologist Signature BUN (Blood Urea 18 6 - 21 05/04/2022 CNFL Nitrogen), P mg/dL 8:24 AM SPD MANAGER Specimen Anatomical Collection Method Collection Time Receive d Time (Source) Location / / Volume Laterality Blood (Blood, 05/04/2022 7:58 AM 05/04/20 22 7:59 Venous) SPD MANAGER AM SPD MANAGER Mike Prescott, M.P.H. LAB BLOOD ADD-ON Performing Organization Address City/State/ZIP Code Phon e Number [address] [address] [place] [address] [address] AST (Aspartate Aminotransferase) (05/04/2022 7:58 AM SPD MANAGER) Patholo gist Method Time Signature Aspartate 22 8 - 43 05/04/2022 CNFL Aminotransferase U/L 8:24 AM SPD MANAGER (AST), P Specimen Anatomical Collection Method Collection Time Receive d Time (Source) Location / / Volume Laterality Blood (Blood, 05/04/2022 7:58 AM 05/04/20 22 7:59 Venous) SPD MANAGER AM SPD MANAGER Mike Jackson., M.P.H. 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 PCP - General 09/25/[id number] [phone] documented as of this encounter
--- OUTSIDE RECORDS SUMMARY | 2022-05-25 20:56 | XMS_ITS | Encounter Summary ---
:1975 Author Organization [facility] Address [address] [place] [address] Care Team Providers Name Role Phone Aura Sandhu APRN, C.N.P., D.N.P. Primary Care Provider Reason for Visit Reason Comments Cough Encounter Details Date Type Department Care Team Description 08/29/2021 Nurse Triage Department of [facility] Erica Brothers C [facility], [facility], in [place], ([address] [phone] Social History Tobacco Use [...] or relatives? How often do you attend mandaen or More than 4 times per year 05/04/2022 sabianism services? Do you belong to any clubs or Yes 05/04/2022 organizations such as mandaen groups, unions, fraternal or athletic groups, or [...] or slept in a alf (including now)? Sex Assigned at Date Recorded Female 05/03/2022 7:07 PM PORTFOLIO CONSULTANT documented as of this encounter Miscellaneous Notes Telephone Encounter - Adrienne Brothersadela Martinez R.N. - 08/29/2021 12:01 PM PORTFOLIO CONSULTANT Chief Complaint / Reason for Call Patient is a 46 y.o. female calling regarding Cough. Assessment Home cares tried: Rest Calling to request: Advice. The recommended disposition is See a health care provider within 24 hours. Mom is planning to bring her to ED. Did offer her urgent care options and also to schedule an appointment for tomorrow, motherdecatherineined. Onset: about 9 days ago. Severity: Denies Sputum: Denies Difficulty breathing: Denies Fever: Denies Cardiac Hx: congenital heart defect. Lung hx: Denies. Other symptoms: Denies wheezing or chest pain. Reason for Disposition ??? [1] Continuous (nonstop) coughing interferes with work or school AND [2] no improvement using cough treatment per protocol Protocols used: COUGH - ACUTE [id number] Care Advice Patient/Caregiver understands and will follow care advice?: Yes, able to teach back SEE PCP WITHIN 24 HOURS: * IF OFFICE WILL BE OPEN: You need to be examined within the next 24 hours. Call your doctor (or TANKER DRIVER/PA) when the office opens and make an [...] Difficulty breathing occurs * You become worse. FOLIO CONSULTANT documented in this encounter Plan of Treatment Upcoming Encounters Date Type Specialty Care Team Description 06/22/2022 Appointment Laboratory Medicine Rusty Vee M.D. [address] [place] [phone] 06/22/2022 Diagnostic Pulmonary Medicine Rusty Vee M.D. [address] [place] [phone] 06/22/2022 Diagnostic Pulmonary Medicine Rusty Vee M.D. [address] [place] [phone] 06/22/2022 Appointment Radiology Rusty Vee M.D. [address] [place] [phone] 06/23/2022 Clinical Communication Admitting/Central Scheduling 06/28/2022 Appointment Pulmonary Medicine Rusty Vee M.D. [address] [place] [phone] 06/28/2022 Appointment Pulmonary Medicine Rusty Vee M.D. [address] [place] [address] documented as of this encounter Visit Diagnoses Not on filedocumented in this encounter Care Teams Logistics Research Engineer Relationship Specialty Start Date End Date Aura Sandhu APRN, C.N.P., D.N.P. PCP - General 09/25/[address] [place] [phone] documented as of this encounter
--- OUTSIDE RECORDS SUMMARY | 2022-05-25 20:56 | XMS_ITS | Encounter Summary ---
:1975 Author Organization [facility] Address [address] [place] [address] Care Team Providers Name Role Phone Aura Sandhu APRN C.N.PMichael, D.N.P. Primary Care Provider Reason for Referral Outpatient (Routine) - Closed Specialty Diagnoses / Procedures Referred By Contact Refer red To Contact Diagnoses Screening Mammogram Breast Cancer Aura Sandhu, [facility] Procedures BI Breast Screening Bilateral with Tomosynthesis C.N.P., D.N.P. [address] [place] [phone] Referral ID Status Reason Start Date Expiration Date Visits Requ ested Visits Authorized [id number] Closed 08/25/2021 08/25/2022 1 1 OR SYSTEM OPERATOR Encounter Details Date Type Department Care Team Description 08/25/2021 [facility] A[facility]hu, Screening Mammogram TETE, C.N.P., Breast Cancer D.N.P. [address] [place] [phone] Social History Tobacco Use Types Packs/Day [...] or relatives? How often do you attend mandaeism or More than 4 times per year 05/04/2022 quaker services? Do you belong to any clubs or Yes 05/04/2022 organizations such as mandaeism groups, unions, fraternal or athletic groups, or [...] place to sleep or slept in a mcfp (including now)? Sex Assigned at Date Recorded Female 05/03/2022 7:07 PM SENIOR SYSTEM OPERATOR documented as of this encounter Plan of Treatment Upcoming Encounters Date Type Specialty Care Team Description 06/22/2022 Appointment Laboratory Medicine Rusty Vee M.D. [address] [place] [phone] 06/22/2022 Diagnostic Pulmonary Medicine Rusty Vee M.D. [address] [place] [phone] 06/22/2022 Diagnostic Pulmonary Medicine Rusty Vee M.D. [address] [place] [phone] 06/22/2022 Appointment Radiology Rusty Vee M.D. [address] [place] [phone] 06/23/2022 Clinical Communication Admitting/Central Scheduling 06/28/2022 Appointment Pulmonary Medicine Rusty Vee M.D. [address] [place] [phone] 06/28/2022 Appointment Pulmonary Medicine Rusty Vee M.D. [address] [place] [phone] documented as of this encounter Results BI Breast Screening Bilateral with Tomosynthesis (10/25/2021 2:32 PM CDT) Anatomical Region Laterality Modality Breast, Breast Imaging RST LOS, Breast Imaging ARZ LOS, [place] st Bilateral Mammography Imaging FLA LOS Specimen (Source) Anatomical Collection Method Collection Time Re ceived Time Location / / Volume Laterality 10/26/2021 12:01 PM CDT Impressions 10/26/2021 12:03 PM CDT Negative. RECOMMENDATION: ??Annual Screening Mammo gram ASSESSMENT: ??BI-RADS: 1: Negative. Narrative 10/26/2021 12:03 PM CDT EXAM: ??BI BREAST SCREENING BILATERAL WITH TOMOSYNTHESIS Current study was evaluated with a BiOWiSHu Macromill Aided Detection (CAD) system. INDICATION: ??Screening mammogram. [...] TOMOSYNTHESIS Current study was evaluated with a BiOWiSHu Macromill Aided Detection (CAD) system. INDICATION: Screening mammogram. [...] Cancer documented in this encounter Care Teams Systems Coordinator Relationship Specialty Start Date End Date Aura Sandhu APRN, C.N.P., D.N.P. PCP - General 09/25/[id number] [place] [phone] documented as of this encounter
--- OUTSIDE RECORDS SUMMARY | 2022-05-25 20:56 | XMS_ITS | Encounter Summary ---
:1975 Author Organization [facility] Address [address] [place] [address] Care Team Providers Name Role Phone Aura Sandhu APRN C.N.PMichael, D.N.P. Primary Care Provider Reason for Referral Outpatient (Routine) - Authorized Specialty Diagnoses / Procedures Referred By Contact Refer red To Contact Diagnoses Stenosis Mitral Congenital (HCC) Mike Ornelas, [facility] Procedures Cardiopulmonary (VO2) Exercise Test Kenyon, M.P.H. [address] [place], [place] [phone] Referral ID Status Reason Start Date Expiration Date Visits V isits Requested Authorized [id number] Authorized 05/03/2022 05/03/2023 1 1 utpatient (Routine) - Authorized Specialty Diagnoses / Procedures Referred By Contact Refer red To Contact Diagnoses Stenosis Mitral Congenital (HCC) Mike Ornelas, [facility] Procedures ECG 12 Lead Kenyon, M.P.H. [address] [place] [phone] Referral ID Status Reason Start Date Expiration Date Visits V isits Requested Authorized [id number] Authorized 05/03/2022 05/03/2023 1 1 utpatient (Routine) - Authorized Specialty Diagnoses / Procedures Referred By Contact Refer red To Contact Diagnoses Stenosis Mitral Congenital (HCC) Mike Ornelas, [facility] Procedures Echo Transthoracic (TTE) - Adult Congenital Kenyon, M.P.H. [address] [place], [place] [phone] Referral ID Status Reason Start Date Expiration Date Visits V isits Requested Authorized [id number] Authorized 05/03/2022 05/03/2023 1 1 CLING TECH Encounter Details Date Type Department Care Team Description 05/03/2022 Orders Only Department of Antonia Dempsey [facility] Cardiovascular Medicine Ari enital ([facility]) in [facility] chidi (Primary Dx) [address] [place] [phone] Social History Tobacco Use Types Packs/Day Years [...] or relatives? How often do you attend advent or More than 4 times per year 05/04/2022 scientology services? Do you belong to any clubs or Yes 05/04/2022 organizations such as advent groups, unions, fraternal or athletic groups, or [...] place to sleep or slept in a long term (including now)? Education Answer Date Recorded What is the highest level of school you have completed or 12 th grade 05/03/2022 the highest degree you have received? Sex Assigned at Date Recorded Female 05/03/2022 7:07 PM RECYCLING TECH documented as of this encounter Plan of Treatment Upcoming Encounters Date Type Specialty Care Team Description 06/22/2022 Appointment Laboratory Medicine Rusty Vee M.D. [address] [place] [phone] 06/22/2022 Diagnostic Pulmonary Medicine Rusty Vee M.D. [address] [place] [phone] 06/22/2022 Diagnostic Pulmonary Medicine Rusty Vee M.D. [address] [place] [phone] 06/22/2022 Appointment Radiology Rusty Vee M.D. [address] [place] [phone] 06/23/2022 Clinical Communication Admitting/Central Scheduling 06/28/2022 Appointment Pulmonary Medicine Rusty Vee M.D. [address] [place] [phone] 06/28/2022 Appointment Pulmonary Medicine Rusty Vee M.D. [address] [place] [phone] Scheduled Orders Name Type Priority Associated Order Schedule Diagnoses Echo Transthoracic (TTE) Echocardiography Routine Stenosis Blas ral Expected: - Adult Congenital Congenital ([facility]) 05/05, Expires: 08/03/2023 CBC with Differential, Lab Routine Stenosis Mitral Ex pected: Blood Congenital ([facility]) 05/05/2023, Expires: 08/03/2023 Lipid Panel Lab Routine Stenosis Mitral Expected: Congenital (HCC) 05/05/2023, Expires: 08/03/2023 S-TSH Lab Routine Stenosis Mitral Expected: (Thyroid-Stimulating Congenital (HCC) 03/2023, Hormone - Sensitive) Expires : 08/03/2023 ECG 12 Lead ECG Routine Stenosis Mitral Expected: Congenital (HCC) 05/05/2023, Expires: 08/03/2023 Sodium Lab Routine Stenosis Mitral Expected: Congenital (HCC) 05/05/2023, Expires: 08/03/2023 Potassium Lab Routine Stenosis Mitral Expected: Congenital (HCC) 05/05/2023, Expires: 08/03/2023 Glucose, Fasting Lab Routine Stenosis Mitral Expected : Congenital (HCC) 05/05/2023, Expires: 08/03/2023 Uric Acid Lab Routine Stenosis Mitral Expected: Congenital (HCC) 05/05/2023, Expires: 08/03/2023 Bilirubin, Total Lab Routine Stenosis Mitral Expected : Congenital (HCC) 05/05/2023, Expires: 08/03/2023 Bilirubin, Direct Lab Routine Stenosis Mitral Expecte d: Congenital ([facility]) 05/05/2023, Expires: 08/03/2023 AST (Aspartate Lab Routine Stenosis Mitral Expected: Aminotransferase) Congenital ([facility]) 2022, Expires: 08/03/2023 Alkaline Phosphatase Lab Routine Stenosis Mitral Expe cted: Congenital ([facility]) 05/05/2023, Expires: 08/03/2023 Albumin Lab Routine Stenosis Mitral Expected: Congenital ([facility]) 05/05/2023, Expires: 08/03/2023 Cardiopulmonary (VO2) Cardiac Services Routine Stenosis Mitral Expected: Exercise Test Congenital ([facility]) 05/05/2023 , Expires: 08/03/2023 Creatinine with Lab Routine Stenosis Mitral Expected: Estimated GFR Congenital ([facility]) 05/05/2023 , Expires: 08/03/2023 BUN (Blood Urea Lab Routine Stenosis Mitral Expected: Nitrogen) Congenital ([facility]) 05/05/2023, Expires: 08/03/2023 NT-Pro B-Type Lab Routine Stenosis Mitral Expected: Natriuretic Peptide Congenital ([facility]) 04/26, (BNP) Expires: 08/03/2023 Protein, Total Lab Routine Stenosis Mitral Expected: Congenital ([facility]) 05/05/2023, Expires: 08/03/2023 documented as of this encounter Visit Diagnoses Diagnosis Stenosis Mitral Congenital ([facility]) - Prima ry documented in this encounter Additional Health Concerns Infection Onset Date Last Indicated Resolved Time COVID19 Pending 05/05/2022 05/05/2022 05/05/2022 6:32 PM RECYCLING TECH documented as of this encounter Care Teams Wing Commander Relationship Specialty Start Date End Date Aura Sandhu APRN, C.N.P., D.N.P. PCP - General 09/25/[id number] [phone] documented as of this encounter
--- OUTSIDE RECORDS SUMMARY | 2022-05-25 20:56 | XMS_ITS | Encounter Summary ---
:1975 Author Organization [facility] Address [address] [place] [address] Care Team Providers Name Role Phone Aura Sandhu APRN C.N.PMichael, D.N.P. Primary Care Provider Reason for Referral Specialty Diagnoses / Procedures Referred By Contact Refer red To Contact Aura Sandhu APRN C.N.PMichael, [facility] D.N.P. [address] [place] [phone] Referral ID Status Reason Start Date Expiration Date Visits Requ ested Visits Authorized Encounter Details Date Type Department Care Team Description 04/20/2022 Orders Only [facility] PCP [facility] Aura Sandhu APRN C.N.PMichael, D.N.P. [address] [place] [phone] (Wo rk) Social History Tobacco Use [...] or relatives? How often do you attend roman catholic or More than 4 times per year 05/04/2022 jehovah's witness services? Do you belong to any clubs or Yes 05/04/2022 organizations such as roman catholic groups, unions, fraternal or athletic groups, or [...] place to sleep or slept in a prison (including now)? Sex Assigned at Date Recorded Female 05/03/2022 7:07 PM PICKER FEEDER documented as of this encounter Plan of Treatment Upcoming Encounters Date Type Specialty Care Team Description 06/22/2022 Appointment Laboratory Medicine Rusty Vee M.D. [address] [place] [phone] 06/22/2022 Diagnostic Pulmonary Medicine Rusty Vee M.D. [address] [place] [phone] 06/22/2022 Diagnostic Pulmonary Medicine Rusty Vee M.D. [address] [place] [phone] 06/22/2022 Appointment Radiology Rusty Vee M.D. [address] [place] [phone] 06/23/2022 Clinical Communication Admitting/Central Scheduling 06/28/2022 Appointment Pulmonary Medicine Rusty Vee M.D. [address] [place] [phone] 06/28/2022 Appointment Pulmonary Medicine Rusty Vee M.D. [address] [place] [phone] Scheduled Referrals Name Type Priority Associated Order Schedule Diagnoses Covid immunization Outpatient Referral Routine Ex pected: office visit 04/20/2022 Immuno/Booster (Approximate) , Expires: 04/20/2023 documented as of this encounter Visit Diagnoses Not on filedocumented in this encounter Care Teams Horse Show Judge Relationship Specialty Start Date End Date Aura Sandhu APRN, C.N.P., D.N.P. PCP - General 09/25/[id number] [phone] documented as of this encounter
--- OUTSIDE RECORDS SUMMARY | 2022-05-25 20:56 | XMS_ITS | Encounter Summary ---
:1975 Author Organization [facility] Address [address] [place] [address] Care Team Providers Name Role Phone Aura Sandhu APRN C.N.PMichael, D.N.P. Primary Care Provider Reason for Referral Outpatient (Routine) - Closed Specialty Diagnoses / Procedures Referred By Contact Refer red To Contact Diagnoses Defect Atrial Ventricular Canal Complete (HCC) Mike Ornelas, [facility] Procedures DX Chest AP or PA and Lateral 2 Views EvaBMichaelBMichaelSMichael, M.P.H. [address] [place] [phone] Referral ID Status Reason Start Date Expiration Date Visits Requ ested Visits Authorized [id number] Closed 05/03/2022 05/03/2023 1 1 O ELECTRIC OPERATOR Reason for Visit Outpatient (Routine) - Closed Specialty Diagnoses / Procedures Referred By Contact Refer red To Contact Diagnoses Defect Atrial Ventricular Canal Complete (HCC) Mike Ornelas, [place] [facility] Procedures DX Chest AP or PA and Lateral 2 Views M.BMichaelBMichaelS., M.P.H. [address] [place] [phone] Referral ID Status Reason Start Date Expiration Date Visits Requ ested Visits Authorized [id number] Closed 05/03/2022 05/03/2023 1 1 Encounter Details Date Type Department Care Team Description 05/04/2022 Hospital Encounter Department of Mike Ornelas De fect Atrial Radiology in [place] M. PMichaelHMichael Ventricular [address] [phone] [place], [place] [phone] (Work) [phone] Social History Tobacco Use Types Packs/Day Years [...] or relatives? How often do you attend christianity or More than 4 times per year 05/04/2022 synagogue services? Do you belong to any clubs or Yes 05/04/2022 organizations such as christianity groups, unions, fraternal or athletic groups, or [...] place to sleep or slept in a retirement (including now)? Education Answer Date Recorded What is the highest level of school you have completed or 12 th grade 05/03/2022 the highest degree you have received? Sex Assigned at Date Recorded Female 05/03/2022 7:07 PM TURBO ELECTRIC OPERATOR documented as of this encounter Medications at [...] on trunk and ointment extremities once daily Mondays-Thursdays chlorhexidine Take 15 mL by mouth at [...] Appointment Laboratory Medicine Rusty Vee M.D. [address] [place] [phone] 06/22/2022 Diagnostic Pulmonary Medicine Rusty Vee M.D. [address] [place] [phone] 06/22/2022 Diagnostic Pulmonary Medicine Rusty Vee M.D. [address] [place] [phone] 06/22/2022 Appointment Radiology Rusty Vee M.D. [address] [place] [phone] 06/23/2022 Clinical Communication Admitting/Central Scheduling 06/28/2022 Appointment Pulmonary Medicine Rusty Vee M.D. [address] [place] [phone] 06/28/2022 Appointment Pulmonary Medicine Rusty Vee M.D. [address] [place] [phone] documented as of this encounter Procedures Procedure Name Priority Date/Time Associated Comments Diagnosis DX CHEST AP OR PA RAD - Routine 05/04/2022 8:26 Defect Atrial Resul ts for this AND LATERAL 2 (most inpatients AM TURBO ELECTRIC OPERATOR Ventricular Canal proce dure are in VIEWS and all Complete (HCC) the results outpatients) section. documented in this encounter Results DX Chest AP or PA and Lateral 2 Views (05/04/2022 8:26 AM TURBO ELECTRIC OPERATOR) Anatomical Region Laterality Modality Chest, Thoracic RST LOS, Thoracic ARZ LOS, Thoracic N/A Digital Radiography FLA LOS Specimen (Source) Anatomical Collection Method Collection Time Re ceived Time Location / / Volume Laterality 05/04/2022 9:25 AM TURBO ELECTRIC OPERATOR Impressions 05/04/2022 9:27 AM TURBO ELECTRIC OPERATOR Since 04/25/2022, persistent cardiomegaly with increased pulmonary vascular congestion and bilateral mid-lower lung predominant airspace and interstitial opacities/edema. Remainder not significantly changed. No pneumothorax. Probable small bilatera l pleural effusions. Sternotomy. Narrative 05/04/2022 9:27 AM TURBO ELECTRIC OPERATOR EXAM: DX CHEST AP OR PA AND [...] [place], M.P.H. IMG DIAGNOSTIC IMAGI NG PROCEDURES documented in this encounter Visit Diagnoses Diagnosis Defect Atrial Ventricular Canal Complete (HCC) documented in this encounter Care Teams Breakfast Bar Attendant Relationship Specialty Start Date End Date Aura Sandhu APRN, C.N.P., D.N.P. PCP - General 09/25/[id number] [phone] documented as of this encounter
--- OUTSIDE RECORDS SUMMARY | 2022-05-25 20:56 | XMS_ITS | Encounter Summary ---
:1975 Author Organization [facility] Address [address] [place] [address] Care Team Providers Name Role Phone Aura Sandhu APRN C.N.Jayna, D.N.P. Primary Care Provider Encounter Details Date Type Department Care Team Description 05/04/2022 Hospital Encounter Department of Aura Sandhu Screen ing Examination Diabetes Mellitus; Laboratory Medicine TETE Martinez, Hyperlip idemia Mixed; in [place] C.N.PMichael, D.N.P. Defect Atrial Ventricular Canal Complete (HCC) [place] [address] [facility] [phone] Social History Tobacco Use Types Packs/Day Years [...] or relatives? How often do you attend confucianism or More than 4 times per year 05/04/2022 voodoo services? Do you belong to any clubs or Yes 05/04/2022 organizations such as confucianism groups, unions, fraternal or athletic groups, or [...] place to sleep or slept in a mcc (including now)? Education Answer Date Recorded What is the highest level of school you have completed or 12 th grade 05/03/2022 the highest degree you have received? Sex Assigned at Date Recorded Female 05/03/2022 7:07 PM RETAIL PARTS PRO documented as of this encounter Medications at [...] Appointment Laboratory Medicine Rusty Vee M.D. 200 [place] [phone] 06/22/2022 Diagnostic Pulmonary Medicine Rusty Vee M.D. 200 [place] [phone] 06/22/2022 Diagnostic Pulmonary Medicine Rusty Vee M.D. [address] [place] [phone] 06/22/2022 Appointment Radiology Rusty Vee M.D. [address] [place] [phone] 06/23/2022 Clinical Communication Admitting/Central Scheduling 06/28/2022 Appointment Pulmonary Medicine Rusty Vee M.D. [address] [place] [phone] 06/28/2022 Appointment Pulmonary Medicine Rusty Vee M.D. [address] [place] [phone] documented as of this encounter Procedures Procedure Name Priority Date/Time Associated Diagnosis Comme nts HC T4 FREE Routine 05/04/2022 7:58 Results for this AM [employer]AIL [employer] PRO procedure are i n the results section. LIPID PANEL, S Routine 05/04/2022 7:58 Hyperlipidemia Mixed Re sults for this AM [employer] PRO procedure are i n the results section. THYROID FUNCTION Routine 05/04/2022 7:58 Defect Atrial Results for this CASCADE, S AM [employer]AIL [employer] PRO Ventricular Canal procedure are in Complete (HCC) the results section. CBC WITH DIFFERENTIAL, Routine 05/04/2022 7:58 Defect Atrial R esults for this B AM [employer] PRO Ventricular Canal procedure are in Complete (HCC) the results section. BUN (BLOOD UREA Routine 05/04/2022 7:58 Defect Atrial Results for this NITROGEN), S/P AM [employer] PRO Ventricular Canal procedur e are in Complete (HCC) the results section. ASPARTATE Routine 05/04/2022 7:58 Defect Atrial Results for this AMINOTRANSFERASE (AST), AM [employer]AIL [employer] PRO Ventricular Canal procedure are in S/P Complete (HCC) the results section. SODIUM, S/P Routine 05/04/2022 7:58 Defect Atrial Results for this AM [employer] PRO Ventricular Canal procedure are in Complete (HCC) the results section. POTASSIUM, S/P Routine 05/04/2022 7:58 Defect Atrial Results f or this AM [employer] PRO Ventricular Canal procedure are in Complete (HCC) the results section. GLUCOSE, FASTING, S/P Routine 05/04/2022 7:58 Screening Examin ation Results for this AM [employer] PRO Diabetes Mellitus procedure are in the results section. CREATININE WITH EGFR, Routine 05/04/2022 7:58 Defect Atrial Re sults for this S/P AM [employer] PRO Ventricular Canal procedure are in Complete (HCC) the results section. THYROPEROXIDASE (TPO) Routine 05/04/2022 7:56 Res ults for this ABS, S AM [employer] PRO procedure are i n the results section. documented in this encounter Results T4 (Thyroxine), Free, Serum (05/04/2022 7:58 AM [employer]AIL [employer]S PRO) athologist Signature T4 (Thyroxine), 0.9 0.9 - 1.7 05/04/2022 RDWG Free, S ng/dL 1:03 PM [employer]AIL [employer]S PRO Comment: Biotin has been identified by the [...] Volume Laterality Blood 05/04/2022 7:58 AM 7:59 RETAIL PARTS PRO AM RETAIL PARTS PRO Mike Jackson., M.P.H. LAB BLOOD ADD-ON Performing Organization Address City/State/ZIP Code Phon e Number [facility] [address] [place] [address] [place], [place] [address] [facility] [place] [address] System in [address] [place] (ABNORMAL) Thyroid Function [place] (05/04/2022 7:58 AM RETAIL PARTS PRO) athologist Signature TSH, Sensitive 5.9 (H) 0.3 - 4.2 05/04/2022 CNFL mIU/L 9:18 AM RETAIL PARTS PRO Specimen Anatomical Collection Method Collection Time Receive d Time (Source) Location / / Volume Laterality Blood (Blood, 05/04/2022 7:58 AM 05/04/20 7:59 Venous) RETAIL PARTS PRO AM RETAIL PARTS PRO Mike Prescott, M.P.H. LAB BLOOD ADD-ON Performing Organization Address City/[facility] Phon e Number [address] [phone] [place] [address] System in [place] [address] Sodium (05/04/2022 7:58 AM RETAIL [employer]S PRO) P athologist Signature Sodium, P 140 135 - 145 05/04/2022 8:24 CNFL mmol/L AM [employer]AIL [employer]S PRO Specimen Anatomical Collection Method Collection Time Receive d Time (Source) Location / / Volume Laterality Blood (Blood, 05/04/2022 7:58 AM 05/04/20 7:59 Venous) RETAIL PARTS PRO AM [employer]AIL PARTS PRO Mike Prescott, M.P.H. LAB BLOOD ADD-ON Performing Organization Address City/[facility] Code Phon e Number [address] [phone] [place] [address] System in [place] [address] Potassium (05/04/2022 7:58 AM RETAIL PARTS PRO) P athologist Signature Potassium, P 4.5 3.6 - 5.2 05/04/2022 CNFL mmol/L 8:24 AM RETAIL [employer]S PRO Specimen Anatomical Collection Method Collection Time Receive d Time (Source) Location / / Volume Laterality Blood (Blood, 05/04/2022 7:58 AM 05/04/20 7:59 Venous) RETAIL PARTS PRO AM RETAIL PARTS PRO Mike Prescott, M.P.H. LAB BLOOD ADD-ON Performing Organization Address City/[facility] Code Phon e Number [address] [phone] [place] [address] System in [place] [address] (ABNORMAL) Creatinine with Estimated GFR (05/04/2022 7:58 AM RETAIL PARTS PRO) Analysis Performed At Patho logist Time Signature Creatinine 1.13 (H) 0.59 - 05/04/2022 CNFL 1.04 mg/dL 8:24 AM [employer]AIL [employer] PRO Estimated GFR 60 >=60 05/04/2022 CNFL (eGFR) mL/min/BSA 8:24 AM [employer]AIL [employer] PRO Comment: Estimated GFR calculated using the 2020 CKD_EPI creatinine equation. Specimen Anatomical Collection Method Collection Time Receive d Time (Source) Location / / Volume Laterality Blood (Blood, 05/04/2022 7:58 AM 05/04/20 7:59 Venous) RETAIL PARTS PRO AM RETAIL PARTS PRO Mike Jackson., M.P.H. LAB BLOOD ADD-ON Performing Organization Address City/State/[facility] Code Phon e Number [facility]- [address] [place] [phone] [place] [address] System in [address] (ABNORMAL) CBC with Differential, Blood (05/04/2022 7:58 AM RETAIL [employer] PRO) Patholo gist Method Time Signature Hemoglobin 12.7 11.6 - 05/04/2022 CNFL 15.0 g/dL 8:05 AM [employer]AIL [employer] PRO Hematocrit 40.0 35.5 - 05/04/2022 CNFL 44.9 % 8:05 AM [employer] PRO Erythrocytes 3.94 3.92 - 05/04/2022 CNFL 5.13 8:05 AM RETAIL [employer]S PRO x10(12)/L MCV 101.5 (H) 78.2 - 05/04/2022 CNFL 97.9 fL 8:05 AM [employer]AIL [employer] PRO RBC Distrib Width 14.8 12.2 - 05/04/2022 CNFL 16.1 % 8:05 AM [employer]AIL [employer] PRO Platelet Count 120 (L) 157 - 371 05/04/2022 CNFL x10(9)/L 8:05 AM [employer]AIL [employer] PRO Leukocytes 4.1 3.4 - 9.6 05/04/2022 CNFL x10(9)/L 8:05 AM [employer] PRO Neutrophils 3.07 1.56 - 05/04/2022 CNFL 6.45 8:05 AM [employer]AIL [employer] PRO x10(9)/L Lymphocytes 0.70 (L) 0.95 - 05/04/2022 CNFL 3.07 8:05 AM [employer]AIL [employer] PRO x10(9)/L Monocytes 0.28 0.26 - 05/04/2022 CNFL 0.81 8:05 AM [employer]AIL [employer] PRO x10(9)/L Eosinophils 0.04 0.03 - 05/04/2022 CNFL 0.48 8:05 AM [employer]AIL [employer] PRO x10(9)/L Basophils <0.04 0.01 - 05/04/2022 CNFL 0.08 8:05 AM [employer]AIL [employer]S PRO x10(9)/L Specimen Anatomical Collection Method Collection Time Receive d Time (Source) Location / / Volume Laterality Blood (Blood, 05/04/2022 7:58 AM 05/04/20 22 7:59 Venous) RETAIL PARTS PRO AM RETAIL PARTS PRO Mike Prescott, M.P.H. LAB BLOOD ADD-ON Performing Organization Address [facility] Phon e Number [address] LAB [place] [phone] System [address] BUN (Blood Urea Nitrogen) (05/04/2022 7:58 AM RETAIL [employer]S PRO) P athologist Signature BUN (Blood Urea 18 6 - 21 05/04/2022 CNFL Nitrogen), P mg/dL 8:24 AM RETAIL [employer]S PRO Specimen Anatomical Collection Method Collection Time Receive d Time (Source) Location / / Volume Laterality Blood (Blood, 05/04/2022 7:58 AM 05/04/20 22 7:59 Venous) RETAIL PARTS PRO AM RETAIL PARTS PRO Mike Prescott, M.P.H. LAB BLOOD ADD-ON Performing Organization Address City/[facility] Phon e Number [address] [place] [address] [facility] [place] [phone] System [address] AST (Aspartate Aminotransferase) (05/04/2022 7:58 AM RETAIL [employer]S PRO) Patholo gist Method Time Signature Aspartate 22 8 - 43 05/04/2022 CNFL Aminotransferase U/L 8:24 AM RETAIL PARTS PRO (AST), P Specimen Anatomical Collection Method Collection Time Receive d Time (Source) Location / / Volume Laterality Blood (Blood, 05/04/2022 7:58 AM 05/04/20 7:59 Venous) RETAIL [employer]S PRO AM RETAIL PARTS PRO Mike Prescott, M.P.H. LAB BLOOD ADD-ON Performing Organization Address City/State/ZIP Code Phon e Number [place] [address] [place] [address] [place] [address] System in [place] [address] (ABNORMAL) Lipid Panel (05/04/2022 7:58 AM RETAIL [employer]S PRO) P athologist Signature Triglycerides 142 mg/dL 05/04/2022 CNFL 8:24 AM RETAIL [employer]S PRO Comment: ----REFERENCE VALUE---- Normal: <150 mg/dL Borderline High: 150-199 mg/dL High: 200-499 mg/dL Very High: > or =500 mg/dL Cholesterol, Total 177 mg/dL 05/04/2022 8:24 AM CS T CNFL Comment: ----REFERENCE VALUE---- Desirable: < 200 mg/dL Borderline High: 200 - 239 mg/dL High: > or = 240 mg/dL Cholesterol, LDL, Calculated 109 mg/dL 05/04/2022 8:24 AM RETAIL [employer]S PRO CNFL Comment: ----REFERENCE VALUE---- Desirable: <100 mg/dL Above Desirable: 100-129 mg/dL Borderline High: 130-159 mg/dL High: 160-189 mg/dL Very High: >=190 mg/dL ----ADDITIONAL INFORMATION---- LDL cholesterol calculated using the Shelby/NIH equation. Cholesterol, HDL 43 (L) >=50 mg/dL 05/04/2022 8:24 AM RETAIL [employer]S PRO CNFL Cholesterol, Non-HDL, Calculated 134 mg/dL 8:24 AM RETAIL PARTS PRO CNFL Comment: ----REFERENCE VALUE---- Desirable: <130 mg/dL Above Desirable: 130-159 mg/dL Borderline High: 160-189 mg/dL High: 190-219 mg/dL Very High: > or =220 mg/dL Fasting (8 HR or more) Yes 05/04/2022 7:59 A M RETAIL [employer]S PRO CNFL Specimen Anatomical Collection Method Collection Time Receive d Time (Source) Location / / Volume Laterality Blood (Blood, 05/04/2022 7:58 AM 05/04/20 7:59 Venous) RETAIL [employer]S PRO AM RETAIL PARTS PRO Danie Burgess APRN.N.P., D.N.P. LAB BLOOD ADD-ON Performing Organization Address City/[facility]/ZIP Code Phon e Number [facility]- [address] [place] [phone] [place] [address] System [address] (ABNORMAL) Glucose, Fasting (05/04/2022 7:58 AM RETAIL [employer] PRO) P athologist Signature Glucose, P 115 (H) 70 - 100 05/04/2022 CNFL mg/dL 8:21 AM RETAIL [employer]S PRO Last Intake 14 hr 05/04/2022 CNFL 7:59 AM RETAIL [employer]S PRO Specimen Anatomical Collection Method Collection Time Receive d Time (Source) Location / / Volume Laterality Blood (Blood, 05/04/2022 7:58 AM 05/04/20 7:59 Venous) RETAIL [employer]S PRO AM RETAIL [employer]S PRO Danie Burgess APRN.N.P., D.N.P. LAB BLOOD NON ADD -ON Performing Organization Address City/[facility]/ZIP Code Phon e Number [facility]- [address] [place] [phone] [place] [address] System [address] Thyroperoxidase (TPO) Antibodies (05/04/2022 7:56 AM RETAIL [employer]S PRO) Patholo gist Method Time Signature Thyroperoxidase Ab, 12.5 <34.0 05/04/2022 ECLR S IU/mL 2:31 PM RETAIL [employer]S PRO Specimen Anatomical Collection Method Collection Time Receive d Time (Source) Location / / Volume Laterality Blood 05/04/2022 7:56 AM 2:06 RETAIL PARTS PRO PM RETAIL PARTS PRO Mike Jackson., M.P.H. LAB BLOOD ADD-ON Performing Organization Address City/State/ZIP Code Phon e Number [facility]- [address] [place] [phone] [facility] [place] [address] System in [address] documented in this encounter Visit Diagnoses Diagnosis Screening Examination Diabetes Mellitus Hyperlipidemia Mixed Defect Atrial Ventricular Canal Complete (HCC) documented in this encounter Care Teams Network And Threat Support Specialist Relationship Specialty Start Date End Date Aura Sandhu APRN, C.N.P., D.N.P. PCP - General 09/25/[address] [place] [phone] documented as of this encounter
--- OUTSIDE RECORDS SUMMARY | 2022-05-25 20:56 | XMS_ITS | Encounter Summary ---
:1975 Author Organization [facility] Address [address] [place] [address] Care Team Providers Name Role Phone Aura Sandhu APRN C.N.PMichael, D.N.P. Primary Care Provider Reason for Referral Outpatient (Routine) - Closed Specialty Diagnoses / Procedures Referred By Contact Refer red To Contact Cardiovascular Disease Diagnoses Prosthesis Heart Valve Tanya King [facility] C.N.P. [address] [place] [address] Referral ID Status Reason Start Date Expiration Date Visits Requ ested Visits Authorized [id number] Closed 04/26/2022 04/26/2023 1 1 Outpatient (Routine) - Authorized Specialty Diagnoses / Procedures Referred By Contact Refer red To Contact Pulmonary Medicine Diagnoses Abnormal Findings On Diagnostic Imaging Of Other Specified Body Structures Wheezing Cough Unspecified Type Tanya King [facility] C.N.P. [address] [place], [place] [address] Referral ID Status Reason Start Date Expiration Date Visits V isits Requested Authorized [id number] Authorized 04/26/2022 04/26/2023 1 1 Encounter Details Date Type Department Care Team Description 04/26/2022 [facility] Tanya King Abnormal Findings On Diagnostic Imaging Of Other Specified Body Structures (Primary Dx); [facility] M, C.N.P. Wheezing; [address] Cough Unspecified Type; [place], [place] Prosthesi s Heart Valve [phone] [id number] Social History Tobacco Use Types Packs/Day Years [...] or relatives? How often do you attend orthodox or More than 4 times per year 05/04/2022 pentecostal services? Do you belong to any clubs or Yes 05/04/2022 organizations such as orthodox groups, unions, fraternal or athletic groups, or [...] place to sleep or slept in a fdc (including now)? 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 [address] [place] [phone] 06/22/2022 Diagnostic Pulmonary Medicine Rusty Vee M.D. [address] [place] [phone] 06/22/2022 Diagnostic Pulmonary Medicine Rusty Vee M.D. [address] [place] [phone] 06/22/2022 Appointment Radiology Rusty Vee M.D. [address] [place] [address] [place] [phone] 06/23/2022 Clinical Communication Admitting/Central Scheduling 06/28/2022 Appointment Pulmonary Medicine Rusty Vee M.D. 200 [place] [phone] 06/28/2022 Appointment Pulmonary Medicine Rusty Vee M.D. [address] [place] [phone] Scheduled Referrals Name Type Priority Associated Order Schedule Diagnoses Pulmonary Medicine Outpatient Routine Abnormal Findings Expe cted: Referral Referral On Diagnostic 04/26/2022 Imaging Of Other (Approximat e), Specified Body Expires: Structures 07/27/2023 Wheezing Cough Unspecified Type Cardiovascular Diseases Outpatient Routine Prosthesis Heart Expected: Referral Referral Valve 04/26/2022 (Approximate), Expires: 07/27/2023 documented as of this encounter Visit Diagnoses Diagnosis Abnormal Findings On Diagnostic Imaging Of Other Specified Body Structures - Primary Wheezing Cough Unspecified Type Prosthesis Heart Valve documented in this encounter Care Teams Radiology Practitioner Assistant Relationship Specialty Start Date End Date Aura Sandhu APRN, C.N.P., D.N.P. PCP - General 09/25/[address] [place] [phone] documented as of this encounter
--- OUTSIDE RECORDS SUMMARY | 2022-05-25 20:56 | XMS_ITS | Encounter Summary ---
:1975 Author Organization [facility] Address [address] [place] [address] Care Team Providers Name Role Phone Aura Sandhu APRN C.N.PMichael, D.N.P. Primary Care Provider Reason for Referral Outpatient (Routine) - Closed Specialty Diagnoses / Procedures Referred By Contact Refer red To Contact Diagnoses Screening Mammogram Breast Cancer Aura Sandhu APRN, [facility] [place] [facility] Procedures BI Breast Screening Bilateral with Tomosynthesis C.N.P., D.N.P. [address] [place] [phone] Referral ID Status Reason Start Date Expiration Date Visits Requ ested Visits Authorized [id number] Closed 08/25/2021 08/25/2022 1 1 Reason for Visit Outpatient (Routine) - Closed Specialty Diagnoses / Procedures Referred By Contact Refer red To Contact Diagnoses Screening Mammogram Breast Cancer Aura Sandhu APRN, [facility] [place] [facility] Procedures BI Breast Screening Bilateral with Tomosynthesis C.N.P., D.N.P. [address] [place] [phone] Referral ID Status Reason Start Date Expiration Date Visits Requ ested Visits Authorized [id number] Closed 08/25/2021 08/25/2022 1 1 Encounter Details Date Type Department Care Team Description 10/25/2021 Hospital Encounter Department of Aura Sandhu Screen ing Mammogram Radiology in [place], TREE MARKER, Breast C [place], [place] C.N.P., D.N.P. [address] [phone] [place] [phone] Social History Tobacco Use Types Packs/Day [...] or relatives? How often do you attend uatsdin or More than 4 times per year 05/04/2022 yazdanism services? Do you belong to any clubs or Yes 05/04/2022 organizations such as uatsdin groups, unions, fraternal or athletic groups, or [...] minutes do you engage in exercise at is 0 min 05/04/2022 level? Stress Answer [...] slept in a long term (including now)? 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 clobetasoL (TEMOVATE) 0 04/05/202103/2022 0.05 % ointment dexAMETHasone sodium 4 mL by iontophoretic 25 mL 0 04/2705/05/2022 phosphate 0.4 % route as needed solution (Plantar fasciitis pain). documented as of this encounter Plan of Treatment Upcoming Encounters Date Type Specialty Care Team Description 06/22/2022 Appointment Laboratory Medicine Rusty Vee M.D. [address] [place] [phone] 06/22/2022 Diagnostic Pulmonary Medicine Rusty Vee M.D. [address] [place] [phone] 06/22/2022 Diagnostic Pulmonary Medicine Rusty Vee M.D. [address] [place] [phone] 06/22/2022 Appointment Radiology Rusty Vee M.D. [address] [place] [phone] 06/23/2022 Clinical Communication Admitting/Central Scheduling 06/28/2022 Appointment Pulmonary Medicine Rusty Vee M.D. [address] [place] [phone] 06/28/2022 Appointment Pulmonary Medicine Rusty Vee M.D. [address] [place] [phone] documented as of this encounter Procedures Procedure [...] Imaging RST LOS, Breast Imaging ARZ LOS, [place] [address] Bilateral Mammography Imaging FLA LOS Specimen (Source) Anatomical Collection Method Collection Time Re ceived Time Location / / Volume Laterality 10/26/2021 12:01 PM CDT Impressions 10/26/2021 12:03 PM CDT Negative. RECOMMENDATION: ??Annual Screening Mammo gram ASSESSMENT: ??BI-RADS: 1: Negative. Narrative 10/26/2021 12:03 PM CDT EXAM: ??BI BREAST SCREENING BILATERAL WITH TOMOSYNTHESIS Current study was evaluated with a Compu TaKaDu Aided Detection (CAD) system. INDICATION: ??Screening mammogram. [...] Current study was evaluated with a Compu TaKaDu Aided Detection (CAD) system. INDICATION: Screening mammogram. [...] Cancer documented in this encounter Care Teams Wire Fence Builder Relationship Specialty Start Date End Date Aura Sandhu APRN, C.N.P., D.N.P. PCP - General 09/25/[address] [phone] documented as of this encounter
--- OUTSIDE RECORDS SUMMARY | 2022-05-25 20:56 | XMS_ITS | Encounter Summary ---
:1975 Author Organization [facility] Address [address] [place] [address] Care Team Providers Name Role Phone Aura Sandhu APRN C.N.PMichael, D.N.P. Primary Care Provider Reason for Referral Outpatient (Routine) - Closed Specialty Diagnoses / Procedures Referred By Contact Refer red To Contact Diagnoses Defect Atrial Ventricular Canal Complete (HCC) Mike Ornelas, [place] Procedures ECG 12 Lead M.BMichaelB.SMichael, M.P.H. [address] [place] [address] Referral ID Status Reason Start Date Expiration Date Visits Requ ested Visits Authorized [id number] Closed 05/03/2022 05/03/2023 1 1 S CLASSIFIER Reason for Visit Outpatient (Routine) - Closed Specialty Diagnoses / Procedures Referred By Contact Refer red To Contact Diagnoses Defect Atrial Ventricular Canal Complete (HCC) Mike Ornelas, [place] Procedures ECG 12 Lead M.B.B.S., M.P.H. [address] [place] [address] Referral ID Status Reason Start Date Expiration Date Visits Requ ested Visits Authorized [id number] Closed 05/03/2022 05/03/2023 1 1 Encounter Details Date Type Department Care Team Description 05/04/2022 Hospital Encounter Department of Mike Ornelas De fect Atrial Radiology in [place] MMichael PMorena. Ventricular [address] [address] [place], [place] [phone] (Work) [phone] Social History Tobacco Use Types Packs/Day Years [...] More than 4 times per year 05/04/2022 muslim services? Do you belong to any clubs [...] for the very basics like Not v estephnaie hard 05/04/2022 food, housing, medical care, and [...] or slept in a fdc (including now)? Education Answer Date Recorded What is the highest level of school you have completed or 12 th grade 05/03/2022 the highest degree you have received? Sex Assigned at Date Recorded Female 05/03/2022 7:07 PM PARTS CLASSIFIER documented as of this encounter Medications at [...] Laboratory Medicine Rusty Vee M.D. [address] [place] [phone] 06/22/2022 Diagnostic Pulmonary Medicine Rusty Vee M.D. [address] [place] [phone] 06/22/2022 Diagnostic Pulmonary Medicine Rusty Vee M.D. [address] [place] [phone] 06/22/2022 Appointment Radiology Rusty Vee M.D. [address] [place] [phone] 06/23/2022 Clinical Communication Admitting/Central Scheduling 06/28/2022 Appointment Pulmonary Medicine Rusty Vee M.D. [address] [place] [phone] 06/28/2022 Appointment Pulmonary Medicine Rusty Vee M.D. [address] [place] [phone] documented as of this encounter Procedures Procedure Name Priority Date/Time Associated Diagnosis Comme nts ECG Routine 05/04/2022 8:01 AM Defect Atrial Results for this PARTS CLASSIFIER Ventricular Canal procedure are in Complete (HCC) the results section. documented in this encounter Results ECG 12 Lead (05/04/2022 8:01 AM PARTS CLASSIFIER) P athologist Signature Ventricular Rate 72 BPM MUSE ECG/Min AL Interval 164 ms MUSE QRSD Interval 88 ms MUSE QT Interval 394 ms MUSE QTC Interval 431 ms MUSE P [place] 22 degrees MUSE R [place] -17 degrees MUSE T Wave [place] 18 degrees MUSE Specimen Anatomical Collection Method Collection Time Receive d Time (Source) Location / / Volume Laterality 05/04/2022 8:01 AM 8:08 PARTS CLASSIFIER AM PARTS CLASSIFIER Impressions MUSE - 05/04/2022 8:08 AM PARTS CLASSIFIER Normal sinus rhythm Nonspecific ST abnormality When [...] Code Phon e Number MUSE MUSE NA documented in this encounter Visit Diagnoses Diagnosis Defect Atrial Ventricular Canal Complete (HCC) documented in this encounter Care Teams Grassland Conservationist Relationship Specialty Start Date End Date Aura Sandhu APRN, C.N.P., D.N.P. PCP - General 09/25/[address] [phone] documented as of this encounter
--- OUTSIDE RECORDS SUMMARY | 2022-05-25 20:56 | XMS_ITS | Encounter Summary ---
:1975 Author Organization [facility] Address [address] [place] [address] Care Team Providers Name Role Phone Aura Sandhu APRN, C.N.P., D.N.P. Primary Care Provider Encounter Details Date Type Department Care Team Description 05/03/2022 Orders Only [facility] SELF TEST [facility] Aura Sandhu, Screening Cancer Colon [address] FAINA EPSTEIN, C.N.P., [place] [address] D.N.P. [phone] [place] [phone] Social History Tobacco Use Types Packs/Day [...] or relatives? How often do you attend holiness or More than 4 times per year 05/04/2022 islam services? Do you belong to any clubs or Yes 05/04/2022 organizations such as holiness groups, unions, fraternal or athletic groups, or [...] slept in a skilled nursing (including now)? Education Answer Date Recorded What is the highest level of school you have completed or 12 th grade 05/03/2022 the highest degree you have received? Sex Assigned at Date Recorded Female 05/03/2022 7:07 PM CUSTOMER ACCOUNTS ADVISOR documented as of this encounter Plan of Treatment Upcoming Encounters Date Type Specialty Care Team Description 06/22/2022 Appointment Laboratory Medicine Rusty Vee M.D. [address] [place] [phone] 06/22/2022 Diagnostic Pulmonary Medicine Rusty Vee M.D. [address] [place] [phone] 06/22/2022 Diagnostic Pulmonary Medicine Rusty Vee M.D. [address] [place] [phone] 06/22/2022 Appointment Radiology Rusty Vee M.D. [address] [place] [phone] 06/23/2022 Clinical Communication Admitting/Central Scheduling 06/28/2022 Appointment Pulmonary Rusty Mattson M.D. [address] [place] [phone] 06/28/2022 Appointment Pulmonary Medicine Rusty Vee M.D. [address] [place] [phone] Scheduled Orders Name Type Priority Associated Diagnoses Order S ruby [facility]-Sent Out Lab Lab Routine Screening Cancer C olon Expected: 05/17/2022 (Approximate), Expires: 08/03/2023 documented as of this encounter Visit Diagnoses Diagnosis Screening Cancer Colon documented in this encounter Care Teams Manager Digital Ad Operations Relationship Specialty Start Date End Date Aura Sandhu APRN, C.N.P., D.N.P. PCP - General 09/25/[address] [place] [address], [place] [phone] documented as of this encounter
--- OUTSIDE RECORDS SUMMARY | 2022-05-25 20:56 | XMS_ITS | Encounter Summary ---
:1975 Author Organization [facility] Address [address] [place] [address] Care Team Providers Name Role Phone Aura Sandhu APRN C.N.P., D.N.P. Primary Care Provider Reason for Visit Appointment Request (Routine) - Closed Specialty Diagnoses / Procedures Referred By Contact Refer red To Contact Family Medicine Referral ID Status Reason Start Date Expiration Date Visits Requ ested Visits Authorized [id number] Closed 11/17/2021 11/17/2022 1 1 Encounter Details Date Type Department Care Team Description 12/08/2021 Immunization Department of [facility] Aura Sandhu, Medicine, [place] TETE, C.N .P., D.N.P. [facility], [place] [phone] Social History Tobacco Use Types Packs/Day Years [...] place to sleep or slept in a care home (including now)? Sex Assigned at Date Recorded Female 05/03/2022 7:07 PM CONTACT AGENT documented as of this encounter Plan of Treatment Upcoming Encounters Date Type Specialty Care Team Description 06/22/2022 Appointment Laboratory Medicine Rusyt Vee M.D. [address] [place] [phone] 06/22/2022 Diagnostic Pulmonary Medicine Rusty Vee M.D. [address] [place] [phone] 06/22/2022 Diagnostic Pulmonary Medicine Rusty Vee M.D. [address] [place] [phone] 06/22/2022 Appointment Radiology Rusty Vee M.D. [address] [place] [phone] 06/23/2022 Clinical Communication Admitting/Central Scheduling 06/28/2022 Appointment Pulmonary Medicine Rusty Vee M.D. [address] [place] [phone] 06/28/2022 Appointment Pulmonary Medicine Rusty Vee M.D. [address] [place] [phone] documented as of this encounter Visit Diagnoses Not on filedocumented in this encounter Care Teams Jig Hand Relationship Specialty Start Date End Date Aura Sandhu APRN, C.N.P., D.N.P. PCP - General 09/25/[address] [place] [phone] documented as of this encounter
--- OUTSIDE RECORDS SUMMARY | 2022-05-25 20:57 | XMS_ITS | Encounter Summary ---
:1975 Author Organization [facility] Address [address] [place] [address] Care Team Providers Name Role Phone Aura Sandhu APRN C.N.P., D.N.P. Primary Care Provider Reason for Visit Physical Therapy (Routine) - Canceled Specialty Diagnoses / Procedures Referred By Contact Refer red To Contact Diagnoses Pain Heel Right Deyanira Weber APRN, [facility] Procedures PT Ongoing treatment C.N.P., D.N.P. [address] [place] [phone] Referral ID Status Reason Start Date Expiration Date Visits V isits Requested Authorized [id number] Canceled 04/30/2021 06/25/2021 99 99 Encounter Details Date Type Department Care Team Description 05/12/2021 Clinical Support Department of Deyanira Weber APRN, C.N.P., D.N.P. [address] [place] [phone] Pain Heel Right Rehabilitation Services Ximena Rodriguez, P.T. [address] [place] [phone] [phone] Social History Tobacco Use Types Packs/Day Years [...] or relatives? How often do you attend anabaptist or More than 4 times per year 05/04/2022 quaker services? Do you belong to any clubs or Yes 05/04/2022 organizations such as anabaptist groups, unions, fraternal or athletic groups, or [...] place to sleep or slept in a nursing home (including now)? 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 - 05/12/2021 4:00 PM CST Physical Therapy Outpatient Treatment Note SUBJECTIVE Patient's Name: Hue Medina Referring Provider: Deyanira Weber APRN, C.* Visit Diagnosis: 1. Pain Heel Right Payor: [facility] / Plan: [facility] HMO / Product Type: HMO / No [...] min Total Treatment Time (min): 24 min ALARM OPERATOR documented in this encounter Plan of Treatment Upcoming Encounters Date Type Specialty Care Team Description 06/22/2022 Appointment Laboratory Medicine Rusty Vee M.D. [address] [place] [phone] 06/22/2022 Diagnostic Pulmonary Medicine Rusty Vee M.D. [address] [place] [phone] 06/22/2022 Diagnostic Pulmonary Medicine Rusty Vee M.D. [address] [place] [phone] 06/22/2022 Appointment Radiology Rusty Vee M.D. [address] [place] [phone] 06/23/2022 Clinical Communication Admitting/Central Scheduling 06/28/2022 Appointment Pulmonary Medicine Rusty Vee M.D. [address] [place] [phone] 06/28/2022 Appointment Pulmonary Medicine Rusty Vee M.D. [address] [place] [phone] documented as of this encounter Visit Diagnoses Diagnosis Pain Heel Right documented in this encounter Care Teams [place] Physician Dermatologist Relationship Specialty Start Date End Date Aura Sandhu APRN, C.N.P., D.N.P. PCP - General 09/25/[address] [place] [phone] documented as of this encounter
--- OUTSIDE RECORDS SUMMARY | 2022-05-25 20:57 | XMS_ITS | Encounter Summary ---
:[address] [facility] Address [address] [place] [address] Care Team Providers Name Role Phone Aura Sandhu APRN, C.N.P., D.N.P. Primary Care Provider Encounter Details Date Type Department Care Team Description 05/19/2021 Orders Only Department of Orthopedic Alyssa Mathew APRN, Surgery in [place], C.N.P., D.N .P. [address] [phone] [place] [address] [phone] Social History Tobacco Use Types Packs/Day Years [...] or relatives? How often do you attend sabianism or More than 4 times per year 05/04/2022 oriental orthodox services? Do you belong to any clubs or Yes 05/04/2022 organizations such as sabianism groups, unions, fraternal or athletic groups, or [...] place to sleep or slept in a [place] health care facility (including now)? 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 [address] [place] [phone] 06/22/2022 Diagnostic Pulmonary Medicine Rusty Vee M.D. [address] [place] [phone] 06/22/2022 Diagnostic Pulmonary Medicine Rusty Vee M.D. [address] [place] [phone] 06/22/2022 Appointment Radiology Rusty Vee M.D. [address] [place] [phone] 06/23/2022 Clinical Communication Admitting/Central Scheduling 06/28/2022 Appointment Pulmonary Medicine Rusty Vee M.D. [address] [place] [phone] 06/28/2022 Appointment Pulmonary Medicine Rusty Vee M.D. [address] [place] [phone] documented as of this encounter Visit Diagnoses Not on filedocumented in this encounter Care Teams Chicken Stuffer Relationship Specialty Start Date End Date Aura Sandhu APRN, C.N.P., D.N.P. PCP - General 09/25/[address] [place] [phone] documented as of this encounter
--- OUTSIDE RECORDS SUMMARY | 2022-05-25 20:57 | XMS_ITS | Encounter Summary ---
:1975 Author Organization [facility] Address [address] [place] [address] Care Team Providers Name Role Phone Aura Sandhu APRN C.N.P., D.N.P. Primary Care Provider Encounter Details Date Type Department Care Team Description 07/18/2020 Nurse Triage Department of [facility] Torey Andrade, RViktor Medicine, [facility], [place], [place] [address] [place] [address] Social History Tobacco Use Types Packs/Day Years Used Date Smoking Tobacco: Never Smokeless Tobacco: Never Alcohol Use Standard Drinks/Week Comments Yes 0 (1 standard drink = 0.6 oz pure alcoho l) Alcohol Habits Answer Date Recorded How often [...] many times do you More than three aebl es a week 05/04/2022 talk on the phone with family, friends, or neighbors? How often do you get together with friends Twice a week 05/04/2022 or relatives? How often do you attend congregational or More than 4 times per year 05/04/2022 buddhism services? Do you belong to any clubs or Yes 05/04/2022 organizations such as congregational groups, unions, fraternal or athletic groups, or [...] place to sleep or slept in a fpc (including now)? Sex Assigned at Date Recorded Female 05/03/2022 7:07 PM ANIMAL COP documented as of this encounter Miscellaneous Notes [...] bruising. Patient is followed by Hematology/oncology at [facility] in [place] so SB was contacted and they will assist patient's mom in contacting provider emission technician for this department. AL COP documented in this encounter Plan of Treatment Upcoming Encounters Date Type Specialty Care Team Description 06/22/2022 Appointment Laboratory Medicine Rusty Vee M.D. [address] [place] [phone] 06/22/2022 Diagnostic Pulmonary Medicine Rusty Vee M.D. [address] [place] [phone] 06/22/2022 Diagnostic Pulmonary Medicine Rusty Vee M.D. [address] [place] [phone] 06/22/2022 Appointment Radiology Rusty Vee M.D. [address] [place] [phone] 06/23/2022 Clinical Communication Admitting/Central Scheduling 06/28/2022 Appointment Pulmonary Medicine Rusty Vee M.D. [address] [place] [phone] 06/28/2022 Appointment Pulmonary Medicine Rusty Vee M.D. [address] [place] [phone] documented as of this encounter Visit Diagnoses Not on filedocumented in this encounter Care Teams Bunghole Borer Relationship Specialty Start Date End Date Aura Sandhu APRN, C.N.P., D.N.P. PCP - General 09/25/[address] [phone] documented as of this encounter
--- OUTSIDE RECORDS SUMMARY | 2022-05-25 20:57 | XMS_ITS | Encounter Summary ---
:1975 Author Organization [facility] Address [address] [place] [address] Care Team Providers Name Role Phone Aura Sandhu APRN C.N.P., D.N.P. Primary Care Provider Reason for Visit Physical Therapy (Routine) - Canceled Specialty Diagnoses / Procedures Referred By Contact Refer red To Contact Diagnoses Pain Heel Right Deyanira Weber APRN, [facility] Procedures PT Ongoing treatment C.N.P., D.N.P. [address] [place] [phone] Referral ID Status Reason Start Date Expiration Date Visits V isits Requested Authorized [id number] Canceled 04/30/2021 06/25/2021 99 99 Encounter Details Date Type Department Care Team Description 05/19/2021 Clinical Support Department of Deyanira Weber APRN, C.N.P., D.N.P. [address] [place] [phone] Pain Heel Right Rehabilitation Services Ximena Rodriguez, P.T. [address] [place] [phone] [phone] Social History Tobacco Use Types Packs/Day Years [...] or relatives? How often do you attend buddhism or More than 4 times per year 05/04/2022 jew services? Do you belong to any clubs or Yes 05/04/2022 organizations such as buddhism groups, unions, fraternal or athletic groups, or [...] place to sleep or slept in a jail (including now)? Sex Assigned at Date Recorded Female 05/03/2022 7:07 PM FREIGHT TEAM ASSOCIATE documented as of this encounter Progress Notes Ximena Rodriguez PMichaelT. - 05/19/2021 3:00 PM CST Physical Therapy Outpatient Treatment Note SUBJECTIVE Patient's Name: Hue Medina Referring Provider: Deyanira Weber APRN, C.* Visit Diagnosis: 1. Pain Heel Right Payor: [facility] / Plan: [facility] HMO / Product Type: HMO / No [...] min Total Treatment Time (min): 28 min GHT TEAM ASSOCIATE documented in this encounter Plan of Treatment Upcoming Encounters Date Type Specialty Care Team Description 06/22/2022 Appointment Laboratory Medicine Rusty Vee M.D. [address] [place] [phone] 06/22/2022 Diagnostic Pulmonary Medicine Rusty Vee M.D. [address] [place] [phone] 06/22/2022 Diagnostic Pulmonary Medicine Rusty Vee M.D. [address] [place] [phone] 06/22/2022 Appointment Radiology Rusty Vee M.D. [address] [place] [phone] 06/23/2022 Clinical Communication Admitting/Central Scheduling 06/28/2022 Appointment Pulmonary Medicine Rusty Vee M.D. [address] [place] [phone] 06/28/2022 Appointment Pulmonary Medicine Rusty Vee M.D. [address] [place] [phone] documented as of this encounter Visit Diagnoses Diagnosis Pain Heel Right documented in this encounter Care Teams Police And Fire Dispatcher Relationship Specialty Start Date End Date Aura Sandhu APRN, C.N.P., D.N.P. PCP - General 09/25/[address] [place] [phone] documented as of this encounter
--- OUTSIDE RECORDS SUMMARY | 2022-05-25 20:57 | XMS_ITS | Encounter Summary ---
:1975 Author Organization [facility] Address [address] [place] [address] Care Team Providers Name Role Phone Aura Sandhu APRN, C.N.P., D.N.P. Primary Care Provider Encounter Details Date Type Department Care Team Description 09/25/2020 Orders Only [facility] SEMN PCP [facility] Sa blanca Louise M.D. [address] [place], [place] [phone] (Wo rk) Social History [...] or relatives? How often do you attend methodist or More than 4 times per year 05/04/2022 baptist services? Do you belong to any clubs or Yes 05/04/2022 organizations such as methodist groups, unions, fraternal or athletic groups, or [...] place to sleep or slept in a half-way (including now)? Sex Assigned at Date Recorded Female 05/03/2022 7:07 PM BRACER documented as of this encounter Plan of Treatment Upcoming Encounters Date Type Specialty Care Team Description 06/22/2022 Appointment Laboratory Medicine Rusty Vee M.D. [address] [place] [phone] 06/22/2022 Diagnostic Pulmonary Medicine Rusty Vee M.D. [address] [place] [phone] 06/22/2022 Diagnostic Pulmonary Medicine Rusty Vee M.D. [address] [place] [phone] 06/22/2022 Appointment Radiology Rusty Vee M.D. [address] [place] [phone] 06/23/2022 Clinical Communication Admitting/Central Scheduling 06/28/2022 Appointment Pulmonary Medicine Rusty Vee M.D. [address] [place] [phone] 06/28/2022 Appointment Pulmonary Rusty Mattson M.D. [address] [place] [phone] documented as of this encounter Visit Diagnoses Not on filedocumented in this encounter Care Teams Ethylbenzene Oxidizer Relationship Specialty Start Date End Date Aura Sandhu APRN, C.N.P., D.N.P. PCP - General 09/25/[address] [place] [phone] documented as of this encounter
--- OUTSIDE RECORDS SUMMARY | 2022-05-25 20:57 | XMS_ITS | Encounter Summary ---
:1975 Author Organization [facility] Address [address] [place] [address] Care Team Providers Name Role Phone Aura Sandhu APRN C.N.Jayna, D.N.P. Primary Care Provider Encounter Details Date Type Department Care Team Description 06/11/2021 Clinical Communication Department of [facility] Aura Sandhu, Medicine, [place] TETE, C.N.PMichael, Clinic, [place] [phone] Social History Tobacco Use Types Packs/Day [...] More than 4 times per year 05/04/2022 restoration services? Do you belong to any clubs [...] place to sleep or slept in a residential (including now)? Sex Assigned at Date Recorded Female 05/03/2022 7:07 PM CERTIFIED ORTHOTIST/PEDORTHIST documented as of this encounter Miscellaneous Notes Telephone Encounter - Jenny Manzo - 06/11/2021 2:[address] 2021 PT order for this patient. Thank you! IFIED ORTHOTIST/PEDORTHIST documented in this encounter Plan of Treatment Upcoming Encounters Date Type Specialty Care Team Description 06/22/2022 Appointment Laboratory Medicine Rusty Vee M.D. [address] [place] [phone] 06/22/2022 Diagnostic Pulmonary Medicine Rusty Vee M.D. [address] [place] [phone] 06/22/2022 Diagnostic Pulmonary Medicine Rusty Vee M.D. [address] [place] [phone] 06/22/2022 Appointment Radiology Rusty Vee M.D. [address] [place] [phone] 06/23/2022 Clinical Communication Admitting/Central Scheduling 06/28/2022 Appointment Pulmonary Medicine Rusty Vee M.D. [address] [place] [phone] 06/28/2022 Appointment Pulmonary Medicine Rusty Vee M.D. [address] [place] [phone] documented as of this encounter Visit Diagnoses Not on filedocumented in this encounter Care Teams Machine Pan Greaser Relationship Specialty Start Date End Date Aura Sandhu APRN, C.N.P., D.N.P. PCP - General 09/25/[address] [phone] documented as of this encounter
--- OUTSIDE RECORDS SUMMARY | 2022-05-25 20:57 | XMS_ITS | Encounter Summary ---
:1975 Author Organization [facility] Address [address] [place] [address] Care Team Providers Name Role Phone Aura Sandhu APRN C.N.PMichael, D.N.P. Primary Care Provider Reason for Visit Reason Comments Warfarin Sensitivity Encounter Details Date Type Department Care Team Description 03/18/2020 Refill Department of [facility] Aura Sandhu, Md rfarin Sensitivity Medicine, [place] TETE, C.N .PMichael, D.N.P. [facility], [address] [phone] [place], [place] [phone] (W ork) [address] [phone] Social History Tobacco Use Types Packs/Day Years [...] More than 4 times per year 05/04/2022 judaism services? Do you belong to any clubs [...] at Date Recorded Female 05/03/2022 7:07 PM LITERACY CONSULTANT documented as of this encounter Miscellaneous Notes Telephone Encounter - Maribell Blackwell R.N. - 03/19/2020 8:56 AM CDT Called [facility] to contact [facility]. Telephone Encounter - Aura Sandhu APRN, C.N.PMichael, D.N.PMichael - 03/18/2020 7:27 PM CDT Patient receives INR checks at [facility]. She should obtain prescriptions through them since they are doing the monitoring and dose adjustments. Telephone Encounter - Maddison Graf R.N. - 03/18/2020 12:25 PM CDT PLAN The following information was provided: RN contacted patients mother, Fabiola. Fabiloa states that the patient currently takes 3 mg of Warfarin daily. Information/Education: patient/caller able to teach back The following references were used: nursing clinical judgement Pended medication. Please advise. Telephone Encounter - Ximena Power - 03/18/2020 12:14 PM CDT Images from the original note were not included. Nurse review: Unable to forward request to provider; Warfarin requested, please verify the directions. Patient does not appear to be followed in the coag clinic. Primary Provider: Aura Sandhu APRN, C.N.P., D.N.P. Name of medication: Pharmacy: [facility] documented in this encounter Plan of Treatment Upcoming Encounters Date Type Specialty Care Team Description 06/22/2022 Appointment Laboratory Medicine Rusty Vee M.D. [address] [place] [phone] 06/22/2022 Diagnostic Pulmonary Medicine Rusty Vee M.D. [address] [place] [phone] 06/22/2022 Diagnostic Pulmonary Medicine Rusty Vee M.D. [address] [place] [phone] 06/22/2022 Appointment Radiology Rusty Vee M.D. [address] [place] [phone] 06/23/2022 Clinical Communication Admitting/Central Scheduling 06/28/2022 Appointment Pulmonary Medicine Rusty Vee M.D. [address] [place] [phone] 06/28/2022 Appointment Pulmonary Medicine Rusty Vee M.D. [address] [place] [phone] documented as of this encounter Visit Diagnoses Diagnosis Primary Hypercoagulation Syndrome (HCC) documented in this encounter Care Teams Clinical Trials Manager Relationship Specialty Start Date End Date Aura Sandhu APRN, C.N.P., D.N.P. PCP - General 09/25/[address] [place] [phone] documented as of this encounter
--- OUTSIDE RECORDS SUMMARY | 2022-05-25 20:57 | XMS_ITS | Encounter Summary ---
:1975 Author Organization [facility] Address [address] [place] [address] Care Team Providers Name Role Phone Aura Sandhu APRN C.N.P., D.N.P. Primary Care Provider Reason for Visit Physical Therapy (Routine) - Canceled Specialty Diagnoses / Procedures Referred By Contact Refer red To Contact Diagnoses Pain Heel Right Deyanira Weber APRN, [facility] Procedures PT Ongoing treatment C.N.P., D.N.P. [address] [place] [phone] Referral ID Status Reason Start Date Expiration Date Visits V isits Requested Authorized [id number] Canceled 04/30/2021 06/25/2021 99 99 Encounter Details Date Type Department Care Team Description 06/04/2021 Clinical Support Department of Deyanira Weber APRN, C.N.P., D.N.P. [address] [place] [phone] Pain Heel Right Rehabilitation Lamar Jara, P.TMichael [address] [place] [phone] (Primary Dx) Services in [address] [phone] Social History Tobacco Use Types Packs/Day Years [...] or relatives? How often do you attend zoroastrianism or More than 4 times per year 05/04/2022 nondenominational services? Do you belong to any clubs or Yes 05/04/2022 organizations such as zoroastrianism groups, unions, fraternal or athletic groups, or [...] Date Recorded Female 05/03/2022 7:07 PM RETAIL SERVICE TECHNICIAN documented as of this encounter Progress Notes Lamar Jara P.T. - 06/04/2021 2:30 PM CST Physical Therapy Outpatient Treatment Note SUBJECTIVE Patient's Name: Hue Medina Referring Provider: Deyanira Weber APRN, C.* Visit Diagnosis: 1. Pain Heel Right Payor: [facility] / Plan: [facility] HMO / Product Type: HMO / No data recorded Epic Visit Count: 6 Patient comments: patient continues to report heel pain. Contact monitoring: PPE used during therapy: Therapist was wearing the following PPE throughout entire session: surgicalmask Patient was wearing a mask during therapy session: yes Family member/caregiver present was wearing a mask: yes Additional Staff Present During Session: no OBJECTIVE Pain: Right heel pain Patient demonstrates an antalgic gait pattern. TREATMENT Treatment today consisted of: Today we initiated iontophoresis treatment with the use of 2 ml dexamethasone 4mg/ml IV solution to iontophoresis patch x 13 minutes. Therapist spent greater at 8 minutes explaining the treatment, setting up the treatment, monitoring the treatment and inspecting scan upon completion of the treatment. Therapist was with the patient throughout the treatment to ensure patient tolerated it well and for her comfort. Home Exercise Program/Education: Continue current home exercise program. Pt reports good compliance with her HEP. Assessment Clinical Impression: Patient tolerated treatment session well. No adverse reaction to iontophoresis treatment with use of dexamethasone and skin tolerated it well. Functional Goals and Timeframes: PT Goal #1: Patient will be able to ambulate without pain increase. PT Goal #1 Date: 06/11/21 PT Goal #2: Patient will demonstrate ankle eversion at a 5/5. PT Goal #2 Date: 06/11/21 PT Goal #3: Patient was safe independently perform an independent home exercise program. PT Goal #3 Date: 06/11/21 No data recorded Plan Plan for next session: iontophoresis Time Spent with Patient Iontophoresis (min): 13 min Time Calculation Total Timed Units (min): 13 min Total Treatment Time (min): 13 min [place] SERVICE TECHNICIAN documented in this encounter Miscellaneous Notes Addendum Note - Lamar Jara P.T. - 06/04/2021 2:30 PM RETAIL SERVICE TECHNICIAN Addended by: LAMAR JARA on: 06/15/2021 12:56 PM Modules accepted: Orders [place] SERVICE TECHNICIAN Addendum Note - Karey Portillo P.T. - 06/04/2021 2:30 PM RETAIL SERVICE TECHNICIAN Addended by: KAREY PORTILLO on: 06/28/2021 03:17 PM Modules accepted: Orders [place] SERVICE TECHNICIAN documented in this encounter Plan of Treatment Upcoming Encounters Date Type Specialty Care Team Description 06/22/2022 Appointment Laboratory Medicine Rusyt Vee M.D. [address] [place] [phone] 06/22/2022 Diagnostic Pulmonary Medicine Rusty Vee M.D. [address] [place] [phone] 06/22/2022 Diagnostic Pulmonary Medicine Rusty Vee M.D. [address] [place] [phone] 06/22/2022 Appointment Radiology Rusty Vee M.D. [address] [place] [phone] 06/23/2022 Clinical Communication Admitting/Central Scheduling 06/28/2022 Appointment Pulmonary Medicine Rusty Vee M.D. [address] [place] [phone] 06/28/2022 Appointment Pulmonary Medicine Rusty Vee M.D. [address] [place] [phone] documented as of this encounter Visit Diagnoses Diagnosis Pain Heel Right - Primary documented in this encounter Care Teams Program Planner Relationship Specialty Start Date End Date Aura Sandhu APRN, C.N.P., D.N.P. PCP - General 09/25/[address] [place] [phone] documented as of this encounter
--- OUTSIDE RECORDS SUMMARY | 2022-05-25 20:57 | XMS_ITS | Encounter Summary ---
:1975 Author Organization [facility] Address [address] [place] [address] Care Team Providers Name Role Phone Aura Sanduh APRN C.N.P., D.N.P. Primary Care Provider Reason for Visit Appointment Request (Routine) - Closed Specialty Diagnoses / Procedures Referred By Contact Refer red To Contact Family Medicine Referral ID Status Reason Start Date Expiration Date Visits Requ ested Visits Authorized [id number] Closed 04/27/2021 04/27/2022 1 1 Encounter Details Date Type Department Care Team Description 05/05/2021 Immunization Department of [facility] Aura Sandhu, Medicine, [place] TETE, C.N .P., D.N.P. [facility], [place] [phone] Social History Tobacco Use Types Packs/Day Years [...] place to sleep or slept in a usp (including now)? Sex Assigned at Date Recorded Female 05/03/2022 7:07 PM JUSTICE PROFESSOR documented as of this encounter Plan of Treatment Upcoming Encounters Date Type Specialty Care Team Description 06/22/2022 Appointment Laboratory Medicine Rusty Vee M.D. [address] [place] [phone] 06/22/2022 Diagnostic Pulmonary Medicine Rusty Vee M.D. [address] [place] [phone] 06/22/2022 Diagnostic Pulmonary Medicine Rusty Vee M.D. [address] [place] [phone] 06/22/2022 Appointment Radiology Rusty Vee M.D. [address] [place] [phone] 06/23/2022 Clinical Communication Admitting/Central Scheduling 06/28/2022 Appointment Pulmonary Medicine Rusty Vee M.D. [address] [place] [phone] 06/28/2022 Appointment Pulmonary Medicine Rusty Vee M.D. [address] [place] [phone] documented as of this encounter Visit Diagnoses Not on filedocumented in this encounter Care Teams Service Operator Relationship Specialty Start Date End Date Aura Sandhu APRN, C.N.P., D.N.P. PCP - General 09/25/[address] [place] [phone] documented as of this encounter
--- OUTSIDE RECORDS SUMMARY | 2022-05-25 20:57 | XMS_ITS | Encounter Summary ---
:1975 Author Organization [facility] Address [address] [place] [address] Care Team Providers Name Role Phone Aura Sandhu APRN C.N.Jayna, D.N.P. Primary Care Provider Reason for Visit Reason Comments Follow-up Outpatient (Routine) - Closed Specialty Diagnoses / Procedures Referred By Contact Refer red To Contact Oncology Shawn Barton M.D. 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 How often do you attend taoism or More than 4 times per year 05/04/2022 yazidism services? Do you belong to any clubs or Yes 05/04/2022 organizations such as taoism groups, unions, fraternal or athletic groups, or [...] or slept in a retirement (including now)? Sex Assigned at Date Recorded Female 05/03/2022 7:07 PM SAMPLE PREPARATION SUPERVISOR documented as of this encounter Last Filed Vital Signs Vital Sign Reading Time Taken Comments Blood Pressure 100/44 08/03/2020 2:19 PM SAMPLE PREPARATION SUPERVISOR Pulse 66 08/03/2020 2:19 PM SAMPLE PREPARATION SUPERVISOR Temperature - - Respiratory Rate - - Oxygen Saturation - - Inhaled Oxygen Concentration - - Weight 80.7 kg (177 lb 14.6 oz) 08/03/2020 2:19 PM SAMPLE PREPARATION SUPERVISOR Height 148.5 cm (4' 10.47) 08/03/2020 2:19 PM SAMPLE PREPARATION SUPERVISOR Body Mass Index 36.59 08/03/2020 2:19 PM SAMPLE PREPARATION SUPERVISOR documented in this encounter Progress Notes Shawn Barton M.D. - 08/03/2020 2:30 PM CST SUBJECTIVE REQUESTING PROVIDER Shawn Barton M.D. [address] [place] [phone] CHIEF COMPLAINT / REASON FOR VISIT Hue [...] This individual DOES NOT have the Prothrombin [id number] mutation. Although the Prothrombin C13112T mutation is absent, the individual may have other genetic and environmental risk factors for thrombosis. Consider genetic consultation and counseling of potentially affected family members regarding laboratory testing. ADDITIONAL INFORMATION This test is a direct mutation analysis using PCR amplification, signal generation and release by cleavage of sequence specific alleles ([employer], [employer], [place], [place]). APCRV Ratio >or=2.3 3.0 Fibrinogen, P 200 - 430 MG/DL 364 Fibrinogen Equivalent Units (FEU) 0.00 - 0.50 MCG/ML FEU 0.67High D-Dimer Units (DDU) 0 - 250 335High Comment: Unit of measure: ng/mL D-Dimer Soluble Fibrin Monomer 0.0 - 7.9 MCG/ML <8 DRVVT Screen Ratio 0.0 - 1.1 RATIO 0.9 Protein C Activity, P 70 - 150 % 63Low Prothrombin [id number] Mutation, B Negative Negative Reviewed By: (Conor Foss Interp) . Comment: Eva Mackenzie HX Interpretation (w/Conor-Prudence) . Comment: Type of [...] This individual DOES NOT have the prothrombin A64299H mutation. 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 We did discuss concerns regarding the [...] understanding and was able to teach back. LE PREPARATION SUPERVISOR documented in this encounter Plan of Treatment Upcoming Encounters Date Type Specialty Care Team Description 06/22/2022 Appointment Laboratory Medicine Rusty Vee M.D. [address] [place] [phone] 06/22/2022 Diagnostic Pulmonary Medicine Rusty Vee M.D. [address] [place] [phone] 06/22/2022 Diagnostic Pulmonary Medicine Rusty Vee M.D. [address] [place] [phone] 06/22/2022 Appointment Radiology Rusty Vee M.D. [address] [place] [phone] 06/23/2022 Clinical Communication Admitting/Central Scheduling 06/28/2022 Appointment Pulmonary Medicine Rusty Vee M.D. [address] [place] [phone] 06/28/2022 Appointment Pulmonary Medicine Rusty Vee M.D. [address] [place] [phone] documented as of this encounter Results (ABNORMAL) D-Dimer (08/03/2020 3:09 PM SAMPLE PREPARATION SUPERVISOR) P athologist Signature D-Dimer, P 1071 (H) <=500 ng/mL 08/03/2020 [facility] FEU 3:25 PM SAMPLE PREPARATION SUPERVISOR Comment: ----ADDITIONAL INFORMATION---- D-dimer values less than or equal to 500 ng/mL fibrinogen equivalent units (FEU) may be used in co njunction with clinical pre-test probability to exclude deep vein thrombosis (DVT) and/or pulmonary emboli sm (PE). Specimen Anatomical Collection Method Collection Time Receive d Time (Source) Location / / Volume Laterality Blood (Blood, 08/03/2020 3:09 PM 08/03/19 3:10 Venous) SAMPLE PREPARATION SUPERVISOR PM SAMPLE PREPARATION SUPERVISOR Shawn Barton M.D. LAB BLOOD ADD-ON Performing Organization Address City/State/ZIP Code Phon e Number [facility]- [address] [place], [place] [address] [address] [place] [address] System in [place] [address] documented in this encounter Visit Diagnoses Diagnosis Primary Hypercoagulation Syndrome (HCC) - Primary documented in this encounter Care Teams Pound Attendant Relationship Specialty Start Date End Date Aura Sandhu APRN, C.N.P., D.N.P. PCP - General 09/25/[address] [place] [phone] documented as of this encounter
--- OUTSIDE RECORDS SUMMARY | 2022-05-25 20:57 | XMS_ITS | Encounter Summary ---
:1975 Author Organization [facility] Address [address] [place] [address] Care Team Providers Name Role Phone Aura Sandhu APRN C.N.P., D.N.P. Primary Care Provider Reason for Visit Reason Comments Med Refill Encounter Details Date Type Department Care Team Description 03/03/2020 Refill Department of Dermatology in [place] M.D. Med Refill [facility] chidi [address] [place] [phone] [place], [place] [phone] Social History Tobacco Use Types Packs/Day Years [...] More than 4 times per year 05/04/2022 shinto services? Do you belong to any clubs [...] at Date Recorded Female 05/03/2022 7:07 PM ACID CHANGER documented as of this encounter Plan of Treatment Upcoming Encounters Date Type Specialty Care Team Description 06/22/2022 Appointment Laboratory Medicine Rusty Vee M.D. [address] [place] [phone] 06/22/2022 Diagnostic Pulmonary Medicine Rusty Vee M.D. [address] [place] [phone] 06/22/2022 Diagnostic Pulmonary Medicine Rusty Vee M.D. [address] [place] [phone] 06/22/2022 Appointment Radiology Rusty Vee M.D. [address] [place] [phone] 06/23/2022 Clinical Communication Admitting/Central Scheduling 06/28/2022 Appointment Pulmonary Medicine Rusty Vee M.D. [address] [place] [phone] 06/28/2022 Appointment Pulmonary Medicine Rusty Vee M.D. [address] [place] [phone] documented as of this encounter Visit Diagnoses Not on filedocumented in this encounter Care Teams Blower Room Attendant Relationship Specialty Start Date End Date Aura Sandhu APRN, C.N.P., D.N.P. PCP - General 09/25/[address] [place] [phone] documented as of this encounter
--- OUTSIDE RECORDS SUMMARY | 2022-05-25 20:57 | XMS_ITS | Encounter Summary ---
:1975 Author Organization [facility] Address [address] [place] [address] Care Team Providers Name Role Phone Aura Sandhu APRN, C.NGalileo, D.N.P. Primary Care Provider Encounter Details Date Type Department Care Team Description 04/16/2021 Hospital Encounter Department of Deyanira Weber, Pain Heel Right Radiology in [place] APRN.NGalileo, [place], [place] D.N.P. [address] [place] [phone] Social History Tobacco Use Types Packs/Day Years [...] More than 4 times per year 05/04/2022 anabaptism services? Do you belong to any clubs [...] at Date Recorded Female 05/03/2022 7:07 PM MULLING MACHINE OPERATOR documented as of this encounter Medications [...] clobetasoL (TEMOVATE) 0 04/05/202103/2022 0.05 % ointment warfarin (for_COUMADIN) warfarin 2.5 mg oral 0 08/29/2021 2.5 mg tablet tablet See Instructions, 5mg Sun, & Th, 2.5mg all other days or as directed per INR Clinic as of 09/29/2016, 30 tab(s) documented as of this encounter Plan of Treatment Upcoming Encounters Date Type Specialty Care Team Description 06/22/2022 Appointment Laboratory Medicine Rusty Vee M.D. [address] [place] [phone] 06/22/2022 Diagnostic Pulmonary Medicine Rusty Vee M.D. [address] [place] [phone] 06/22/2022 Diagnostic Pulmonary Medicine Rusty Vee M.D. [address] [place] [phone] 06/22/2022 Appointment Radiology Rusty Vee M.D. [address] [place] [phone] 06/23/2022 Clinical Communication Admitting/Central Scheduling 06/28/2022 Appointment Pulmonary Medicine Rusty Vee M.D. [address] [place] [phone] 06/28/2022 Appointment Pulmonary Medicine Rusty Vee M.D. [address] [place] [phone] documented as of this encounter Procedures Procedure [...] Right documented in this encounter Care Teams Junior Network Engineer Relationship Specialty Start Date End Date Aura Sandhu APRN, C.NMichaelP., D.N.P. PCP - General 09/25/[address] [phone] documented as of this encounter
--- OUTSIDE RECORDS SUMMARY | 2022-05-25 20:57 | XMS_ITS | Encounter Summary ---
:1975 Author Organization [facility] Address [address] [place] [address] Care Team Providers Name Role Phone Aura Sandhu APRN, C.N.P., D.N.P. Primary Care Provider Encounter Details Date Type Department Care Team Description 06/01/2021 Orders Only [facility] Aura Sandhu, Scre ening Examination Diabetes Mellitus; MNT TETE, C.N.P., Hyperlipidemia Mixed D.N.P. [address] [place] [phone] Social History Tobacco Use Types Packs/Day Years [...] or relatives? How often do you attend hindu or More than 4 times per year 05/04/2022 buddhism services? Do you belong to any clubs or Yes 05/04/2022 organizations such as hindu groups, unions, fraternal or athletic groups, or [...] place to sleep or slept in a penitentiary (including now)? Sex Assigned at Date Recorded Female 05/03/2022 7:07 PM DISTRIBUTION OPERATIONS SUPERVISOR documented as of this encounter Plan of Treatment Upcoming Encounters Date Type Specialty Care Team Description 06/22/2022 Appointment Laboratory Medicine Rusty Vee M.D. [address] [place] [phone] 06/22/2022 Diagnostic Pulmonary Medicine Rusty Vee M.D. [address] [place] [phone] 06/22/2022 Diagnostic Pulmonary Medicine Rusty Vee M.D. [address] [place] [phone] 06/22/2022 Appointment Radiology Rusty Vee M.D. [address] [place] [phone] 06/23/2022 Clinical Communication Admitting/Central Scheduling 06/28/2022 Appointment Pulmonary Medicine Rusty Vee M.D. [address] [place] [phone] 06/28/2022 Appointment Pulmonary Medicine Rusty Vee M.D. [address] [place] [phone] documented as of this encounter Visit Diagnoses Diagnosis Screening Examination Diabetes Mellitus Hyperlipidemia Mixed documented in this encounter Care Teams Milk Wagon Driver Relationship Specialty Start Date End Date Aura Sandhu APRN, C.N.P., D.N.P. PCP - General 09/25/[address] [place] [phone] documented as of this encounter
--- OUTSIDE RECORDS SUMMARY | 2022-05-25 20:57 | XMS_ITS | Encounter Summary ---
:1975 Author Organization [facility] Address [address] [place] [address] Care Team Providers Name Role Phone Aura Sandhu APRN, C.N.PMichael, D.N.P. Primary Care Provider Reason for Referral Outpatient (Routine) - Closed Specialty Diagnoses / Procedures Referred By Contact Refer red To Contact Diagnoses Screening Mammogram Average Risk Patient Aura Sandhu APRN, [facility] [place] [facility] Procedures BI Breast Screening Bilateral with Tomosynthesis C.N.P., D.N.P. [address] [place] [phone] Referral ID Status Reason Start Date Expiration Date Visits Requ ested Visits Authorized [id number] Closed 06/29/2020 06/29/2021 1 1 LATION SUPERVISOR Reason for Visit Outpatient (Routine) - Closed Specialty Diagnoses / Procedures Referred By Contact Refer red To Contact Diagnoses Screening Mammogram Average Risk Patient Aura Sandhu APRN, [facility] [place] [facility] Procedures BI Breast Screening Bilateral with Tomosynthesis C.N.P., D.N.P. [address] [place] [phone] Referral ID Status Reason Start Date Expiration Date Visits Requ ested Visits Authorized [id number] Closed 06/29/2020 06/29/2021 1 1 Encounter Details Date Type Department Care Team Description 08/03/2020 Hospital Encounter Department of Aura Sandhu Screen ing Mammogram Radiology in Yovanny Martinez, LABORATORY ASST, Average Ris k [place], [place] C.N.P., D.N.P. [address] [facility] [address] [place] [address] YOVANNY ANDRADE [facility] [phone] [place] [phone] Social History Tobacco Use Types Packs/Day [...] or relatives? How often do you attend zoroastrian or More than 4 times per year 05/04/2022 baptism services? Do you belong to any clubs or Yes 05/04/2022 organizations such as zoroastrian groups, unions, fraternal or athletic groups, or [...] at Date Recorded Female 05/03/2022 7:07 PM REGULATION SUPERVISOR documented as of this encounter Medications at [...] Laboratory Medicine Rusty Vee M.D. [address] [place] [phone] 06/22/2022 Diagnostic Pulmonary Medicine Rusty Vee M.D. [address] [place] [phone] 06/22/2022 Diagnostic Pulmonary Medicine Rusty Vee M.D. [address] [place] [phone] 06/22/2022 Appointment Radiology Rusty Vee M.D. [address] [place] [phone] 06/23/2022 Clinical Communication Admitting/Central Scheduling 06/28/2022 Appointment Pulmonary Medicine Rusty Vee M.D. [address] [place] [phone] 06/28/2022 Appointment Pulmonary Medicine Rusty Vee M.D. [address] [place] [phone] documented as of this encounter Procedures Procedure Name Priority Date/Time Associated Comments Diagnosis BI BREAST SCREENING RAD - Routine 08/03/2020 1:31 Screening Resu lts for BILATERAL WITH (most inpatients PM REGULATION SUPERVISOR Mammogram Average this procedure TOMOSYNTHESIS and all Risk Patient are in the outpatients) results section. documented in this encounter Results BI Breast Screening Bilateral with Tomosynthesis (08/03/2020 1:31 PM REGULATION SUPERVISOR) Anatomical Region Laterality Modality Breast, Breast Imaging RST LOS, Breast Imaging ARZ LOS, Amanda st Bilateral Mammography Imaging FLA LOS Specimen (Source) Anatomical Collection Method Collection Time Re ceived Time Location / / Volume Laterality 08/03/2020 1:46 PM REGULATION SUPERVISOR Impressions 08/03/2020 1:49 PM REGULATION SUPERVISOR Negative. RECOMMENDATION: ??Annual Screening Mammo gram ASSESSMENT: ??BI-RADS: 1: Negative. Narrative 08/03/2020 1:49 PM REGULATION SUPERVISOR EXAM: ??BI BREAST SCREENING BILATERAL WITH TOMOSYNTHESIS [...] Patient documented in this encounter Care Teams Nail Specialist Relationship Specialty Start Date End Date Aura Sandhu APRN, C.N.P., D.N.P. PCP - General 09/25/[id number] [phone] documented as of this encounter
--- OUTSIDE RECORDS SUMMARY | 2022-05-25 20:57 | XMS_ITS | Encounter Summary ---
:1975 Author Organization [facility] Address [address] [place] [address] Care Team Providers Name Role Phone Aura Sandhu APRN C.N.P., D.N.P. Primary Care Provider Reason for Visit Physical Therapy (Routine) - Canceled Specialty Diagnoses / Procedures Referred By Contact Refer red To Contact Diagnoses Pain Heel Right Deyanira Weber APRN, [facility] Procedures PT Ongoing treatment C.N.P., D.N.P. [address] [place] [phone] Referral ID Status Reason Start Date Expiration Date Visits V isits Requested Authorized [id number] Canceled 04/30/2021 06/25/2021 99 99 Encounter Details Date Type Department Care Team Description 05/14/2021 Clinical Support Department of Deyanira Weber APRN, C.N.P., D.N.P. [address] [place] [phone] Pain Heel Right Rehabilitation Services Ximena Rodriguez, P.T. [address] [place] [phone] [phone] Social History Tobacco Use Types Packs/Day Years [...] or relatives? How often do you attend episcopalian or More than 4 times per year 05/04/2022 catholic services? Do you belong to any clubs or Yes 05/04/2022 organizations such as episcopalian groups, unions, fraternal or athletic groups, or [...] at Date Recorded Female 05/03/2022 7:07 PM GREEN CHAIN OFF BEARER documented as of this encounter Progress Notes Ximena Rodriguez PMayelin. - 05/14/2021 3:30 PM CST Physical Therapy Outpatient Treatment Note SUBJECTIVE Patient's Name: Hue Medina Referring Provider: Deyanira Weber APRN, C.* Visit Diagnosis: 1. Pain Heel Right Payor: [facility] / Plan: [facility] H[facility] / Product Type: HMO / No [...] Total Treatment Time (min): 28 min N CHAIN OFF BEARER documented in this encounter Plan of Treatment Upcoming Encounters Date Type Specialty Care Team Description 06/22/2022 Appointment Laboratory Medicine Rusty Vee M.D. [address] [place] [phone] 06/22/2022 Diagnostic Pulmonary Medicine Rusty Vee M.D. [address] [place] [phone] 06/22/2022 Diagnostic Pulmonary Medicine Rusty Vee M.D. [address] [place] [phone] 06/22/2022 Appointment Radiology Rusty Vee M.D. [address] [place] [phone] 06/23/2022 Clinical Communication Admitting/Central Scheduling 06/28/2022 Appointment Pulmonary Medicine Rusty Vee M.D. [address] [place] [phone] 06/28/2022 Appointment Pulmonary Medicine Rusty Vee M.D. [address] [place] [phone] documented as of this encounter Visit Diagnoses Diagnosis Pain Heel Right documented in this encounter Care Teams Rotary Swaging Machine Operator Relationship Specialty Start Date End Date Aura Sandhu APRN, C.N.P., D.N.P. PCP - General 09/25/[address] [place] [phone] documented as of this encounter
--- OUTSIDE RECORDS SUMMARY | 2022-05-25 20:57 | XMS_ITS | Encounter Summary ---
:1975 Author Organization [facility] Address [address] [place] [address] Care Team Providers Name Role Phone Aura Sandhu APRN C.N.P., D.N.P. Primary Care Provider Encounter Details Date Type Department Care Team Description 08/03/2020 Hospital Encounter Department of Shawn Barton Defic iency Protein S Laboratory Medicine MJaime ([facility]) in [place], [address] [place] [address] 701 [facility] [address] [place], [place] [phone] (Work) [phone] Social History Tobacco Use Types Packs/Day Years [...] or relatives? How often do you attend catholic or More than 4 times per year 05/04/2022 anabaptism services? Do you belong to any clubs or Yes 05/04/2022 organizations such as catholic groups, unions, fraternal or athletic groups, [...] at Date Recorded Female 05/03/2022 7:07 PM AUDIT REVIEWER documented as of this encounter Medications at [...] will need to be on lifelong anticoagulation. T REVIEWER documented in this encounter Plan of Treatment Upcoming Encounters Date Type Specialty Care Team Description 06/22/2022 Appointment Laboratory Medicine Rusty Vee M.D. [address] [place] [phone] 06/22/2022 Diagnostic Pulmonary Medicine Rusty Vee M.D. [address] [place] [phone] 06/22/2022 Diagnostic Pulmonary Medicine Rusty Vee M.D. [address] [place] [phone] 06/22/2022 Appointment Radiology Rusty Vee M.D. [address] [place] [phone] 06/23/2022 Clinical Communication Admitting/Central Scheduling 06/28/2022 Appointment Pulmonary Medicine Rusty Vee M.D. [address] [place] [phone] 06/28/2022 Appointment Pulmonary Medicine Rusty Vee M.D. [address] [place] [phone] documented as of this encounter Procedures Procedure Name Priority Date/Time Associated Diagnosis Comme nts D-DIMER, P Routine 08/03/2020 3:09 PM Deficiency Protein S R esults for this AUDIT REVIEWER (HCC) procedure are i n the results section . documented in this encounter Results (ABNORMAL) D-Dimer (08/03/2020 3:09 PM AUDIT REVIEWER) P athologist Signature D-Dimer, P 1071 (H) <=500 ng/mL 08/03/2020 [facility] FEU 3:25 PM AUDIT REVIEWER Comment: ----ADDITIONAL INFORMATION---- D-dimer values less than or equal to 500 ng/mL fibrinogen equivalent units (FEU) may be used in co njunction with clinical pre-test probability to exclude deep vein thrombosis (DVT) and/or pulmonary emboli sm (PE). Specimen Anatomical Collection Method Collection Time Receive d Time (Source) Location / / Volume Laterality Blood (Blood, 08/03/2020 3:09 PM 08/03/19 3:10 Venous) AUDIT REVIEWER PM AUDIT REVIEWER Shawn Barton M.D. LAB BLOOD ADD-ON Performing Organization Address City/State/ZIP Code Phon e Number [facility]- [address] [place], [place] [address] [facility] [place] [address] System in [place] [address] documented in this encounter Visit Diagnoses Diagnosis Deficiency Protein S (HCC) documented in this encounter Care Teams Hem Marker Relationship Specialty Start Date End Date Aura Sandhu APRN, C.N.P., D.N.P. PCP - General 09/25/[address] [place] [phone] documented as of this encounter
--- OUTSIDE RECORDS SUMMARY | 2022-05-25 20:57 | XMS_ITS | Encounter Summary ---
:1975 Author Organization [facility] Address [address] [place] [address] Care Team Providers Name Role Phone Gaye Sandhuah Juan EPSTEIN C.N.PMichael, D.N.P. Primary Care Provider Reason for Referral Physical Therapy (Routine) - Closed Specialty Diagnoses / Procedures Referred By Contact Refer red To Contact Diagnoses Pain Heel Right Deyanira Weber, TETE, [facility] [facility] Procedures PT Evaluate and treat C.N.P., D.N.P. [address] [place] [phone] Referral ID Status Reason Start Date Expiration Date Visits Requ ested Visits Authorized [id number] Closed 04/16/2021 06/25/2021 1 1 Reason for Visit Reason Comments Pain Appointment Request (Routine) - Incomplete Specialty Diagnoses / Procedures Referred By Contact Refer red To Contact Referral ID Status Reason Start Date Expiration Date Visits V isits Requested Authorized [id number] Incomplete 03/15/2021 03/15/2022 1 1 Encounter Details Date Type Department Care Team Description 04/16/2021 Comprehensive Visit Department of Deyanira Weber, Pain Heel Right Orthopedic Surgery TETE, C.N.P., (Primary Dx) in [place], D.N.[address] [address] [place], [place] [phone] (Work) [phone] Social History Tobacco Use Types Packs/Day Years [...] or relatives? How often do you attend baptism or More than 4 times per year 05/04/2022 religion services? Do you belong to any clubs or Yes 05/04/2022 organizations such as baptism groups, unions, fraternal or athletic groups, or [...] at Date Recorded Female 05/03/2022 7:07 PM SITE OPERATIONS MANAGER documented as of this encounter Progress Notes Deyanira Weber, TETE, C.N.P., D.N.P. - 04/16/2021 8:00 AM CDT [...] posterior pain around the Achilles tendon. Diagnostic lichsmn-m-[id number] of the right foot shows Hallux valgus [...] Appointment Laboratory Medicine Rusty Vee M.D. [address] [place] [phone] 06/22/2022 Diagnostic Pulmonary Medicine Rusty Vee M.D. [address] [place] [phone] 06/22/2022 Diagnostic Pulmonary Medicine Rusty Vee M.D. [address] [place] [phone] 06/22/2022 Appointment Radiology Rusty Vee M.D. [address] [place] [phone] 06/23/2022 Clinical Communication Admitting/Central Scheduling 06/28/2022 Appointment Pulmonary Rusty Mattson M.D. [address] [place] [phone] 06/28/2022 Appointment Pulmonary Medicine Rusty Vee M.D. [address] [place] [phone] documented as of this encounter Results DX Foot [...] and pes planus. Tiny plantar calcaneal spur. Danie García APRN.N.P., D.N.P. IMG DIAGNOSTIC IMAG ING PROCEDURES documented in this encounter Visit Diagnoses Diagnosis Pain Heel Right - Primary Pain Heel Right documented in this encounter Care Teams Regional Sales Consultant Relationship Specialty Start Date End Date Aura Sandhu APRN, C.N.PMichael, D.N.P. PCP - General 09/25/[address] [place] [phone] documented as of this encounter
--- OUTSIDE RECORDS SUMMARY | 2022-05-25 20:57 | XMS_ITS | Encounter Summary ---
:1975 Author Organization [facility] Address [address] [place] [address] Care Team Providers Name Role Phone Aura Sandhu APRN, C.N.P., D.N.P. Primary Care Provider Reason for Visit Physical Therapy (Routine) - Closed Specialty Diagnoses / Procedures Referred By Contact Refer red To Contact Diagnoses Pain Heel Right Deyanira Weber APRN, [facility] Procedures PT Evaluate and treat C.N.P., D.N.P. [address] [place] [phone] Referral ID Status Reason Start Date Expiration Date Visits Requ ested Visits Authorized [id number] Closed 04/16/2021 06/25/2021 1 1 Encounter Details Date Type Department Care Team Description 04/30/2021 Comprehensive Visit Department of Deyanira Weber APRN, C.N.P., D.N.P. [address] [place] [phone] Pain Heel Right Rehabilitation Ximena Rodriguez, P.TMichael [address] [place] [phone] [address] [phone] Social History Tobacco Use Types Packs/Day Years [...] or relatives? How often do you attend muslim or More than 4 times per year 05/04/2022 hindu services? Do you belong to any clubs or Yes 05/04/2022 organizations such as muslim groups, unions, fraternal or athletic groups, or [...] at Date Recorded Female 05/03/2022 7:07 PM DATA ADMINISTRATOR documented as of this encounter Consult Notes [...] Visit Diagnosis: 1. Pain Heel Right Payor: [facility] / Plan: [facility] HMO / Product Type: HMO / Epic Visit Count: 1 PERTINENT MEDICAL / SURGICAL [...] min Total Treatment Time (min): 38 min ADMINISTRATOR documented in this encounter Plan of Treatment Upcoming Encounters Date Type Specialty Care Team Description 06/22/2022 Appointment Laboratory Medicine Rusty Vee M.D. [address] [place] [phone] 06/22/2022 Diagnostic Pulmonary Medicine Rusty Vee M.D. [address] [place] [phone] 06/22/2022 Diagnostic Pulmonary Medicine Rusty Vee M.D. [address] [place] [phone] 06/22/2022 Appointment Radiology Rusty Vee M.D. [address] [place] [phone] 06/23/2022 Clinical Communication Admitting/Central Scheduling 06/28/2022 Appointment Pulmonary Medicine Rusty Vee M.D. [address] [place] [phone] 06/28/2022 Appointment Pulmonary Medicine Rusty Vee M.D. [address] [place] [phone] documented as of this encounter Visit Diagnoses Diagnosis Pain Heel Right documented in this encounter Care Teams Gate Watchman Relationship Specialty Start Date End Date Aura Sandhu APRN, C.N.P., D.N.P. PCP - General 09/25/[address] [place] [phone] documented as of this encounter
--- OUTSIDE RECORDS SUMMARY | 2022-05-25 20:57 | XMS_ITS | Encounter Summary ---
:1975 Author Organization [facility] Address [address] [place] [address] Care Team Providers Name Role Phone Aura Sandhu APRN C.N.PMichael, D.N.P. Primary Care Provider Reason for Referral Outpatient (Routine) - Closed Specialty Diagnoses / Procedures Referred By Contact Refer red To Contact Oncology Shawn Barton M.D. [facility] [address] [place] [address] Referral ID Status Reason Start Date Expiration Date Visits Requ ested Visits Authorized [id number] Closed 06/29/2020 06/29/2021 1 1 O TYPE OPERATOR Reason for Visit Reason Comments Consult Deficiency Protein C Appointment Request (Routine) - Closed Specialty Diagnoses / Procedures Referred By Contact Refer maci To Contact Hematology Diagnoses Deficiency Protein C (HCC) Abelino Rehman M.D. [address] [place], [place] [address] Referral ID Status Reason Start Date Expiration Date Visits Requ ested Visits Authorized [id number] Closed 05/15/2020 05/15/2021 1 1 Encounter Details Date Type Department Care Team Description 06/29/2020 Comprehensive Visit Department of Shawn Barton Trisomy 21 (HCC) (Primary Dx); Oncology in Maci Ureña M.D. Deficiency Protein S (HCC) [place], [place] [address] [facility] [address] [place] [phone] Social History Tobacco Use Types Packs/Day Years [...] or relatives? How often do you attend sabianist or More than 4 times per year 05/04/2022 roman catholic services? Do you belong to any clubs or Yes 05/04/2022 organizations such as sabianist groups, unions, fraternal or athletic groups, or [...] to sleep or slept in a senior living (including now)? Sex Assigned at Date Recorded Female 05/03/2022 7:07 PM SET O TYPE OPERATOR documented as of this encounter Last Filed Vital Signs Vital Sign Reading Time Taken Comments Blood Pressure 101/61 06/29/2020 9:45 AM SET O TYPE OPERATOR Pulse 67 06/29/2020 9:45 AM SET O TYPE OPERATOR Temperature - - Respiratory Rate - - Oxygen Saturation 99% 06/29/2020 9:45 AM SET O TYPE OPERATOR R/A Inhaled Oxygen Concentration - - Weight 79.4 kg (175 lb 0.7 oz) 06/29/2020 9:45 AM SET O TYPE OPERATOR Height 148.5 cm (4' 10.47) 06/29/2020 9:45 AM SET O TYPE OPERATOR Body Mass Index 36 06/29/2020 9:45 AM SET O TYPE OPERATOR documented in this encounter Progress Notes Shawn Barton M.D. - 06/29/2020 10:00 AM CST SUBJECTIVE REQUESTING PROVIDER Abelino Rehman M.D. [address] [place] [address] CHIEF COMPLAINT / REASON FOR VISIT Hue [...] ILLNESS Oncology History Oncology History Overview Note 2007 while on control pills, developed a DVT [...] This individual DOES NOT have the Prothrombin G90860D mutation. Although the Prothrombin T11871D mutation is absent, the individual may have other genetic and environmental risk factors for thrombosis. Consider genetic consultation and counseling of potentially affected family members regarding laboratory testing. ADDITIONAL INFORMATION This test is a direct mutation analysis using PCR amplification, signal generation and release by cleavage of sequence specific alleles ([employer], [place], [place], [place]). APCRV Ratio >or=2.3 3.0 Fibrinogen, P 200 - 430 MG/DL 364 Fibrinogen Equivalent Units (FEU) 0.00 - 0.50 MCG/ML FEU 0.67High D-Dimer Units (DDU) 0 - 250 335High Comment: Unit of measure: ng/mL D-Dimer Soluble Fibrin Monomer 0.0 - 7.9 MCG/ML <8 DRVVT Screen Ratio 0.0 - 1.1 RATIO 0.9 Protein C Activity, P 70 - 150 % 63Low Prothrombin R10366U Mutation, B Negative Negative Reviewed By: (Conor Foss Interp) . Comment: Eva Mackenzie HX Interpretation (w/David) . Comment: Type of Study: Thrombophilia Profile [...] This individual DOES NOT have the prothrombin B05606P mutation. Negative results of testing for IgG [...] findings and recommendations for anticoagulation when visit [id number] to review the results of the thrombophilia evaluation. We also discussed the option of getting further input from our thrombophilia colleagues in [facility] via E consult if necessary All questions [...] and/or coordination of care as described above. O TYPE OPERATOR documented in this encounter Plan of Treatment Upcoming Encounters Date Type Specialty Care Team Description 06/22/2022 Appointment Laboratory Medicine Rusty Vee M.D. [address] [place] [address] 06/22/2022 Diagnostic Pulmonary Medicine Rusty Vee M.D. [address] [place] [phone] 06/22/2022 Diagnostic Pulmonary Medicine Rusty Vee M.D. [address] [place] [phone] 06/22/2022 Appointment Radiology Rusty Vee M.D. [address] [place] [phone] 06/23/2022 Clinical Communication Admitting/Central Scheduling 06/28/2022 Appointment Pulmonary Medicine Rusty Vee M.D. [address] [place] [phone] 06/28/2022 Appointment Pulmonary Medicine Rusty Vee M.D. [address] [place] [phone] Scheduled Referrals Name Type Priority Associated Diagnoses Order S [facility] Oncology office Outpatient Referral Routine Expec nelson: visit (clinic) 07/30/2020 (Approximate), Expires: 06/29/2023 documented as of this encounter Results (ABNORMAL) Thrombophilia Profile (07/13/2020 9:08 AM SET O TYPE OPERATOR) P athologist Signature Prothrombin Time 10.5 9.4 - 12.5 07/14/2020 DTL (PT), P sec 9:56 AM SET O TYPE OPERATOR INR 1.0 0.9 - 1.1 07/14/2020 DTL 9:56 AM SET O TYPE OPERATOR Comment: ----ADDITIONAL INFORMATION---- Standard intensity warfarin therapeutic range: 2.0 to 3.0 High intensity warfarin therapeutic rang e: 2.5 to 3.5 Activated Partial Thrombopl Time, 26 25 - 37 sec 06/26 9:58 AM SET O TYPE OPERATOR DTL P DRVVT Screen Ratio 1.19 <1.20 ratio 07/14/2020 9:56 AM SET O TYPE OPERATOR DTL Thrombin Time (Bovine), P 20.0 15.8 - 24.9 sec 07/14/19 21 9:56 AM SET O TYPE OPERATOR DTL Fibrinogen, Clauss, P 390 200 - 500 mg/dL 07/14/2020 9 :49 AM SET O TYPE OPERATOR DTL Comment: ----ADDITIONAL INFORMATION---- This test has been modified from the man ufacturer's instructions. Its performance characteri stics were determined by [facility] in a manner co nsistent with CLIA requirements. This test has not bee n cleared or approved by the U.S. Food and Drug Admin istration. D-DIMER, P 1031 (H) <=500 ng/mL FEU 07/14/2020 9:57 AM SET O TYPE OPERATOR DTL Comment: ----ADDITIONAL INFORMATION---- D-dimer values less than or equal to 500 ng/mL fibrinogen equivalent units (FEU) may be used in co njunction with clinical pre-test probability to exclude deep vein thrombosis (DVT) and/or pulmonary emboli sm (PE). Antithrombin Activity, P 93 80 - 130 % 07/14/2020 9:4 9 AM SET O TYPE OPERATOR DTL Comment: ----ADDITIONAL INFORMATION---- This test has been modified from the [employer]'s instructions. Its performance characteri stics were determined by [facility] in a manner co nsistent with CLIA requirements. This test has not bee n cleared or approved by the U.S. Food and Drug Admin istration. Protein C Activity, P 162 (H) 70 - 150 % 07/14/2020 9:58 A M SET O TYPE OPERATOR DTL Comment: ----ADDITIONAL INFORMATION---- This test has been modified from the [facility]'s instructions. Its performance characteri stics were determined by [facility] in a manner co nsistent with CLIA requirements. This test has not bee n cleared or approved by the U.S. Food and Drug Admin istration. Protein S Ag, Free, P 75 50 - 160 % 07/14/2020 9:50 A M SET O TYPE OPERATOR DTL Comment: ----ADDITIONAL INFORMATION---- This test has been modified from the [facility]'s instructions. Its performance characteri stics were determined by [facility] in a manner co nsistent with CLIA requirements. This test has not bee n cleared or approved by the U.S. Food and Drug Admin istration. APCRV Ratio 3.0 >or=2.3 07/14/2020 9:48 AM SET O TYPE OPERATOR DTL Reviewed By SAEED Bah 08/04/2020 3:03 PM SET O TYPE OPERATOR DTL Prothrombin O70621M CANCELED Negative 07/16/2020 1:[address] DTL Mutation, B Comment: Result canceled by the kunal conroy PTNT Interpretation CANCELED 07/16/2020 1:[address] DTL Comment: Result canceled by the kunal conroy Thrombophilia REVISED REPORT: 08/04/2020 3:03 PM D TL Interpretation ?? IMPRESSION: 1) Elevated D-dimer; see comments and suggest clinical SET O TYPE OPERATOR correlation. ?2) No identifiable congenital or acquired thrombotic d iathesis (thrombophilia) within limitations of test repertoire. ?3) If indicated for ad ditional thrombophilia assessment, consider testing for anticardiolipin and/or anti-beta 2 glycoprot ein I antibodies (IgG and IgM isotypes). ?4) Results of referred test component Prothrombin G2 0210A demonstrate that this individual DOES NOT have the prothrombin Z26303X m utation. ??See comments. Testing performed at [facility] (CLIA# [id number]) [address] [place] [address]. ?COMMENTS: Fibrin D-dimer elevation is indicative of [...] reagent supply issues, component PTNT: Prothrom bin D91553J Mutation, Blood is unable to be performed at [facility] Lab oratories. Results of referral test [test code FPF2V: Prothrombin (F2) X17649T Variant] demonstrate that this individual DOES NOT have the prothromb in F50566X mutation. Testing performed at [facility] (CLIA# [id number]) [address] [place] [address]. ?Note: ??Increased protein C activity is of [...] for DNA based testing for component Prothrombin W82810I has been forwarded to [facility] and an amended report will be issued [...] reagent supply issues, comp onent PTNT: Prothrombin B98274W Mutation, Blood is unable to be performe d; however, a blood specimen has been forwarded to [facility] (CLIA# [id number]) [address] [place] [address], an amended report will b e released. Interpretation of these results should be made within the clinic al context. ??If you wish to discuss these findings with a [facility] absence management consultant, please call [phone]. ?Note: ??Increased protein C activi ty is of unknown hemostatic significance., Flagged as: ??(Reported 0 07/21/2020 10:08) Specimen Anatomical Collection Method Collection Time Receive d Time (Source) Location / / Volume Laterality Blood (Blood, 07/13/2020 9:08 AM 07/14/19 7:59 Venous) SET O TYPE OPERATOR AM SET O TYPE OPERATOR Narrative [facility] - 08/04/2020 3:03 PM SET O TYPE OPERATOR Specimen Information: Specimen ID: [id number] Specimen Type: Blood Specimen Collection Start Date: 07/13/19 ??9:08 AM Specimen Received Date: 07/14/2020 ??7:5 9 AM Specimen ID: [id number] Specimen Type: Blood Specimen Collection Start Date: 07/13/19 ??9:08 AM Specimen Received Date: 07/14/2020 ??7:5 8 AM Specimen ID: [id number] Specimen Type: Blood Specimen Collection Start Date: 07/13/19 ??9:08 AM Specimen Received Date: 07/14/2020 ??7:5 9 AM Specimen ID: [id number] Specimen Type: Blood Specimen Collection Start Date: 07/13/19 ??9:08 AM Specimen Received Date: 07/14/2020 ??7:5 9 AM Specimen ID: [id number] Specimen Type: Blood Specimen Collection Start Date: 07/13/19 ??9:08 AM Specimen Received Date: 07/14/2020 ??7:5 9 AM Specimen ID: [id number] Specimen Type: Blood Specimen Collection Start Date: 07/13/19 ??9:08 AM Specimen Received Date: 07/14/2020 ??8:1 4 AM Shawn Barton M.D. LAB BLOOD NON ADD-ON Performing Organization Address City/State/ZIP Code Phon e Number [facility] [address] [place], [place] [address] [facility] [place] [address] [facility] [address] documented in this encounter Visit Diagnoses Diagnosis Trisomy 21 (HCC) - Primary Deficiency Protein S (HCC) Trisomy 21 (HCC) Deficiency Protein S (HCC) documented in this encounter Care Teams Fish Hatchery Inspector Relationship Specialty Start Date End Date Aura Sandhu APRN, C.N.P., D.N.P. PCP - General 09/25/[address] [phone] documented as of this encounter
--- OUTSIDE RECORDS SUMMARY | 2022-05-25 20:57 | XMS_ITS | Encounter Summary ---
:1975 Author Organization [facility] Address [address] [place] [address] Care Team Providers Name Role Phone Aura Sandhu APRN C.N.P., D.N.P. 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 ([facility]); Laboratory Medicine M.DMichael Deficiency Protein S (HCC) in [place], [address] [place], [place] [address] [facility] [address] [place], [place] [phone] (Work) [phone] Social History Tobacco Use Types Packs/Day Years [...] or relatives? How often do you attend yarsani or More than 4 times per year 05/04/2022 zoroastrian services? Do you belong to any clubs or Yes 05/04/2022 organizations such as yarsani groups, unions, fraternal or athletic groups, or [...] at Date Recorded Female 05/03/2022 7:07 PM EXCHANGE CLERK documented as of this encounter Medications at [...] 0.1 Apply sparingly to 45 g 1 01/202008/03/2020 % ointment involved areas on on trunk [...] Laboratory Medicine Rusty Vee M.D. [address] [place] [address] 06/22/2022 Diagnostic Pulmonary Medicine Rusty Vee M.D. [address] [place] [phone] 06/22/2022 Diagnostic Pulmonary Medicine Rusty Vee M.D. [address] [place] [phone] 06/22/2022 Appointment Radiology Rusty Vee M.D. [address] [place] [phone] 06/23/2022 Clinical Communication Admitting/Central Scheduling 06/28/2022 Appointment Pulmonary Medicine Rusty Vee M.D. [address] [place] [phone] 06/28/2022 Appointment Pulmonary Rusty Mattson M.D. [address] [place] [phone] documented as of this encounter Procedures Procedure Name Priority Date/Time Associated Comments Diagnosis HC REF [facility] PROTHRMBIN Routine 07/14/2020 8:14 AM Results for this (F2) EXCHANGE CLERK procedure are i n the results section. THROMBOPHILIA PROF Routine 07/13/2020 9:08 AM Trisomy 21 (HCC) Results for this EXCHANGE CLERK Deficiency Protein procedure are in S (HCC) the results section. SOLUBLE FIBRIN MONOMER Routine 07/13/2020 9:08 AM Results for this EXCHANGE CLERK procedure are i n the results section. documented in this encounter Results Miscellaneous [facility] Testing (07/14/2020 8:14 AM EXCHANGE CLERK) [facility] Method Time Signature Test Name Prothrombin (F2) 07/17/2020 [facility] c. *97G>A 9:50 AM EXCHANGE CLERK ([id number]) Pat Result SEE COMMENT 07/24/2020 [facility] 2:28 PM EXCHANGE CLERK Comment: For final report, select Lab-Send Out L ab Results hyperlink below. Specimen Anatomical Collection Method Collection Time Receive d Time (Source) Location / / Volume Laterality Varies 07/14/2020 8:14 AM 8:14 EXCHANGE CLERK AM EXCHANGE CLERK Narrative This result has an attachment that is no t available. Shawn Barton M.D. LAB MISC ORDERABLES Performing Organization Address City/State/ZIP Code Phon e Number [employer] [address] [place] [address] [facility] [place] [address] [address] [facility] Soluble Fibrin Monomer (07/13/2020 9:08 AM EXCHANGE CLERK) athologist Signature Soluble Fibrin <5 <=8 mcg/mL 07/14/2020 DTL Monomer 10:16 AM EXCHANGE CLERK Comment: ----ADDITIONAL INFORMATION---- This test was developed and its performa nce characteristics determined by [facility] in a manner co nsistent with CLIA requirements. This test has not bee n cleared or approved by the U.S. Food and Drug Admin istration. Specimen Anatomical Collection Method Collection Time Receive d Time (Source) Location / / Volume Laterality Blood 07/13/2020 9:08 AM 7:59 EXCHANGE CLERK AM EXCHANGE CLERK Shawn Barton M.D. LAB BLOOD NON ADD-ON Performing Organization Address City/State/ZIP Code Phon e Number [facility] - [address] [place], [place] [address] [facility] [place] [address] [facility] [place] 200 [facility] (ABNORMAL) Thrombophilia Profile (07/13/2020 9:08 AM EXCHANGE CLERK) athologist Signature Prothrombin Time 10.5 9.4 - 12.5 07/14/2020 DTL (PT), P sec 9:56 AM EXCHANGE CLERK INR 1.0 0.9 - 1.1 07/14/2020 DTL 9:56 AM EXCHANGE CLERK Comment: ----ADDITIONAL INFORMATION---- Standard intensity warfarin therapeutic range: 2.0 to 3.0 High intensity warfarin therapeutic rang e: 2.5 to 3.5 Activated Partial Thrombopl Time, 26 25 - 37 sec 06/26 9:58 AM EXCHANGE CLERK DTL P DRVVT Screen Ratio 1.19 <1.20 ratio 07/14/2020 9:56 AM EXCHANGE CLERK DTL Thrombin Time (Bovine), P 20.0 15.8 - 24.9 sec 07/14/19 9:56 AM EXCHANGE CLERK DTL Fibrinogen, Clauss, P 390 200 - 500 mg/dL 07/14/2020 9 :49 AM EXCHANGE CLERK DTL Comment: ----ADDITIONAL INFORMATION---- This test has been modified from the [employer]'s instructions. Its performance characteri stics were determined by [facility] in a manner co nsistent with CLIA requirements. This test has not bee n cleared or approved by the U.S. Food and Drug Admin istration. D-DIMER, P 1031 (H) <=500 ng/mL FEU 07/14/2020 9:57 AM EXCHANGE CLERK DTL Comment: ----ADDITIONAL INFORMATION---- D-dimer values less than or equal to 500 ng/mL fibrinogen equivalent units (FEU) may be used in co njunction with clinical pre-test probability to exclude deep vein thrombosis (DVT) and/or pulmonary emboli sm (PE). Antithrombin Activity, P 93 80 - 130 % 07/14/2020 9:4 9 AM EXCHANGE CLERK DTL Comment: ----ADDITIONAL INFORMATION---- This test has been modified from the [employer]'s instructions. Its performance characteri stics were determined by [facility] in a manner co nsistent with CLIA requirements. This test has not bee n cleared or approved by the U.S. Food and Drug Admin istration. Protein C Activity, P 162 (H) 70 - 150 % 07/14/2020 9:58 A M EXCHANGE CLERK DTL Comment: ----ADDITIONAL INFORMATION---- This test has been modified from the [employer]'s instructions. Its performance characteri stics were determined by [facility] in a manner co nsistent with CLIA requirements. This test has not bee n cleared or approved by the U.S. Food and Drug Admin istration. Protein S Ag, Free, P 75 50 - 160 % 07/14/2020 9:50 A M EXCHANGE CLERK DTL Comment: ----ADDITIONAL INFORMATION---- This test has been modified from the [employer]'s instructions. Its performance characteri stics were determined by [facility] in a manner co nsistent with CLIA requirements. This test has not bee n cleared or approved by the U.S. Food and Drug Admin istration. APCRV Ratio 3.0 >or=2.3 07/14/2020 9:48 AM EXCHANGE CLERK DTL Reviewed By SAEED Bah 08/04/2020 3:03 PM EXCHANGE CLERK DTL Prothrombin Z28393I CANCELED Negative 07/16/2020 1:[address] DTL Mutation, B Comment: Result canceled by the kunal olmos. PTNT Interpretation CANCELED 07/16/2020 1:[address] DTL Comment: Result canceled by the kunal olmos. Thrombophilia REVISED REPORT: 08/04/2020 3:03 PM D TL Interpretation ?? IMPRESSION: 1) Elevated D-dimer; see comments and suggest clinical EXCHANGE CLERK correlation. ?2) No identifiable congenital or acquired thrombotic d iathesis (thrombophilia) within limitations of test repertoire. ?3) If indicated for ad ditional thrombophilia assessment, consider testing for anticardiolipin and/or anti-beta 2 glycoprot ein I antibodies (IgG and IgM isotypes). ?4) Results of referred test component Prothrombin G2 0210A demonstrate that this individual DOES NOT have the prothrombin E64677A m utation. ??See comments. Testing performed at [facility] (CLIA# [id number]) [address] [place] [address]. ?COMMENTS: Fibrin D-dimer elevation is indicative of [...] reagent supply issues, component PTNT: Prothrom bin A16526F Mutation, Blood is unable to be performed at [facility] Lab oratories. Results of referral test [test code FPF2V: Prothrombin (F2) U23577A Variant] demonstrate that this individual DOES NOT have the prothromb in W60704O mutation. Testing performed at [facility] (CLIA# [id number]) [address] [place] [address]. ?Note: ??Increased protein C activity is of [...] for DNA based testing for component Prothrombin C30343E has been forwarded to [facility] and an amended report will be issued [...] reagent supply issues, comp onent PTNT: Prothrombin B70606F Mutation, Blood is unable to be performe d; however, a blood specimen has been forwarded to [email or web address] (CLIA# [id number]) [address] [place] [address], an amended report will b e released. Interpretation of these results should be made within the clinic al context. ??If you wish to discuss these findings with a [facility] salesforce consultant, please call [phone]. ?Note: ??Increased protein C activi ty is of unknown hemostatic significance., Flagged as: ??(Reported 0 07/21/2020 10:08) Specimen Anatomical Collection Method Collection Time Receive d Time (Source) Location / / Volume Laterality Blood (Blood, 07/13/2020 9:08 AM 07/14/19 7:59 Venous) EXCHANGE CLERK AM EXCHANGE CLERK Narrative [facility] - 08/04/2020 3:03 PM EXCHANGE CLERK Specimen Information: Specimen ID: [id number] Specimen Type: Blood Specimen Collection Start Date: 07/13/19 ??9:08 AM Specimen Received Date: 07/14/2020 ??7:5 9 AM Specimen ID: [id number] Specimen Type: Blood Specimen Collection Start Date: 07/13/19 ??9:08 AM Specimen Received Date: 07/14/2020 ??7:5 8 AM Specimen ID: [id number] Specimen Type: Blood Specimen Collection Start Date: 07/13/19 ??9:08 AM Specimen Received Date: 07/14/2020 ??7:5 9 AM Specimen ID: [id number] Specimen Type: Blood Specimen Collection Start Date: 07/13/19 ??9:08 AM Specimen Received Date: 07/14/2020 ??7:5 9 AM Specimen ID: [id number] Specimen Type: Blood Specimen Collection Start Date: 07/13/19 ??9:08 AM Specimen Received Date: 07/14/2020 ??7:5 9 AM Specimen ID: [id number] Specimen Type: Blood Specimen Collection Start Date: 07/13/19 ??9:08 AM Specimen Received Date: 07/14/2020 ??8:1 4 AM Shawn Barton M.D. 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 PCP - General 09/25/[address] [place] [phone] documented as of this encounter
--- OUTSIDE RECORDS SUMMARY | 2022-05-25 20:57 | XMS_ITS | Encounter Summary ---
:1975 Author Organization [facility] Address [address] [place] [address] Care Team Providers Name Role Phone Aura Sandhu APRN C.N.P., D.N.P. Primary Care Provider Reason for Visit Physical Therapy (Routine) - Canceled Specialty Diagnoses / Procedures Referred By Contact Refer red To Contact Diagnoses Pain Heel Right Deyanira Weber APRN, [facility] Procedures PT Ongoing treatment C.N.P., D.N.P. [address] [place] [phone] Referral ID Status Reason Start Date Expiration Date Visits V isits Requested Authorized [id number] Canceled 04/30/2021 06/25/2021 99 99 Encounter Details Date Type Department Care Team Description 05/05/2021 Clinical Support Department of Deyanira Weber APRN, C.N.P., D.N.P. [address] [place] [phone] Pain Heel Right Rehabilitation Services Ximena Rodriguez, P.T. [address] [place] [phone] [phone] Social History Tobacco Use Types Packs/Day Years [...] or relatives? How often do you attend rastafarian or More than 4 times per year 05/04/2022 adventist services? Do you belong to any clubs or Yes 05/04/2022 organizations such as rastafarian groups, unions, fraternal or athletic groups, or [...] at Date Recorded Female 05/03/2022 7:07 PM PRODUCTION OR PLANT ENGINEER documented as of this encounter Progress Notes Ximena Rodriguez PMayelin. - 05/05/2021 3:00 PM CST Physical Therapy Outpatient Treatment Note SUBJECTIVE Patient's Name: Hue Medina Referring Provider: Deyanira Weber APRN, C.* Visit Diagnosis: 1. Pain Heel Right Payor: [facility] / Plan: [facility] / Product Type: HMO / No data recorded Epic Visit Count: 2 Patient comments: Patient reported improvement with our treatment session last visit. Contact monitoring: PPE used during therapy: Therapist was wearing the following PPE throughout entire session: surgicalmask Patient was wearing a mask during therapy session: yes Additional Staff Present During Session: no OBJECTIVE Pain: heel pain reported, unable to rate pain on pain scale. TREATMENT Treatment today consisted of: Initiated continuous [...] Assessment Clinical Impression: Tolerated treatment session well. Pain decreases with treatment. Functional Goals and Timeframes: PT Goal #1: [...] Plan Plan for next session: continue with current plan of care. Time Spent with Patient Ultrasound (min): 8 min Manual Therapy (min): 15 min Time Calculation Total Timed Units (min): 23 min Total Treatment Time (min): 23 min UCTION OR PLANT ENGINEER documented in this encounter Plan of Treatment Upcoming Encounters Date Type Specialty Care Team Description 06/22/2022 Appointment Laboratory Medicine Rusty Vee M.D. [address] [place] [phone] 06/22/2022 Diagnostic Pulmonary Medicine Rusty Vee M.D. [address] [place] [phone] 06/22/2022 Diagnostic Pulmonary Medicine Rusty Vee M.D. [address] [place] [phone] 06/22/2022 Appointment Radiology Rusty Vee M.D. [address] [place] [phone] 06/23/2022 Clinical Communication Admitting/Central Scheduling 06/28/2022 Appointment Pulmonary Medicine Rusty Vee M.D. [address] [place] [phone] 06/28/2022 Appointment Pulmonary Medicine Rusty Vee M.D. [address] [place] [phone] documented as of this encounter Visit Diagnoses Diagnosis Pain Heel Right documented in this encounter Care Teams Clicker Operator Relationship Specialty Start Date End Date Aura Sandhu APRN, C.N.P., D.N.P. PCP - General 09/25/[address] [place] [phone] documented as of this encounter
--- OUTSIDE RECORDS SUMMARY | 2022-05-25 20:58 | XMS_ITS | Encounter Summary ---
:1975 Author Organization [facility] Address [address] [place] [address] Care Team Providers Name Role Phone Jacki Luther P.A.-C. Primary Care Provider [phone] Encounter Details Date Type Department Care Team Description 07/29/2019 Anticoagulation Visit Department of Marina Luther Hypercoagulation Syndrome (HCC); Anticoagulation in [place] For Therapeutic Drug Therapy; Seth Car P.A.-C. Assistant Property Manager Anticoagulant Treatment; [address] Anticoagulant Therapy [address] [place] [address] [place] [phone] [place], [place] [phone] [address] Social History Tobacco Use Types Packs/Day Years [...] or relatives? How often do you attend druze or More than 4 times per year 05/04/2022 episcopalian services? Do you belong to any clubs or Yes 05/04/2022 organizations such as druze groups, unions, fraternal or athletic groups, or [...] place to sleep or slept in a longterm (including now)? Sex Assigned at Date Recorded Female 05/03/2022 7:07 PM RIDING INSTRUCTOR documented as of this encounter Progress Notes Nichole Bowers R.N. - 07/29/2019 2:30 PM CST Warfarin Maintenance Nursing Protocol Goal Range 2.0-3.0 (version approved 02/24/17) Visit Type: Patient presents for Otgw-fx-Crto visit in Anticoagulation Service. Primary reason for [...] to the plan of care yes NG INSTRUCTOR documented in this encounter Plan of Treatment Upcoming Encounters Date Type Specialty Care Team Description 06/22/2022 Appointment Laboratory Medicine Rusty Vee M.D. [address] [place] [phone] 06/22/2022 Diagnostic Pulmonary Medicine Rusty Vee M.D. [address] [place] [phone] 06/22/2022 Diagnostic Pulmonary Medicine Rusty Vee M.D. [address] [place] [phone] 06/22/2022 Appointment Radiology Rusty Vee M.D. [address] [place] [phone] 06/23/2022 Clinical Communication Admitting/Central Scheduling 06/28/2022 Appointment Pulmonary Medicine Rusty Vee M.D. [address] [place] [phone] 06/28/2022 Appointment Pulmonary Medicine Rusty Vee M.D. [address] [place] [phone] documented as of this encounter Procedures Procedure Name Priority Date/Time Associated Diagnosis Comme nts INR, POCT, B Routine 07/29/2019 2:21 PM Results f or this RIDING INSTRUCTOR procedure are i n the results section . documented in this encounter Results INR, POCT (07/29/2019 2:21 PM RIDING INSTRUCTOR) P athologist Signature INR, POCT, B 2.2 07/29/2019 CNFL 2:21 PM RIDING INSTRUCTOR Comment: ----ADDITIONAL INFORMATION---- Standard intensity warfarin therapeutic range: 2.0 to 3.0 ?? High intensity warfarin therapeutic rang e: 2.5 to 3.5 Specimen Anatomical Collection Method Collection Time Receive d Time (Source) Location / / Volume Laterality 07/29/2019 2:21 PM 0 2:22 RIDING INSTRUCTOR PM RIDING INSTRUCTOR Generic [facility] POCT ORDERABLES - DEVICE Performing Organization Address City/State/ZIP Code Phon e Number [facility]- [address] [place] [address] [place] [address] [address] documented in this encounter Visit Diagnoses Diagnosis Primary Hypercoagulation Syndrome (HCC) Monitoring For Therapeutic Drug Therapy Assistant Property Manager (Current) Anticoagulant Treatm ent Anticoagulant Therapy documented in this encounter Care Teams Theater Technician Relationship Specialty Start Date End Date Jacki Luther P.A.-C. PCP - General Family Medicine 05/24/18 09/24/19 documented as of this encounter
--- OUTSIDE RECORDS SUMMARY | 2022-05-25 20:58 | XMS_ITS | Encounter Summary ---
:1975 Author Organization [facility] Address [address] [place] [address] Care Team Providers Name Role Phone Aura [...] Expiration Date Visits Requ ested Visits Authorized [id number] Closed 12/31/2019 12/30/2020 1 1 Encounter Details Date Type Department Care Team Description 12/31/2019 Office Visit Department of Family Aura Sandhu, [facility] Medicine, [place] TETE, C.N.P., (Mireya akiko Mario) Clinic, in [place] [address] [phone] Social History Tobacco Use Types Packs/Day Years [...] More than 4 times per year 05/04/2022 denominational services? Do you belong to any clubs or Yes 05/04/2022 organizations such as yarsani groups, unions, fraTrumpIT or athletic groups, or school groups? How [...] at Date Recorded Female 05/03/2022 7:07 PM VOICE NETWORK ENGINEER documented as of this encounter Last Filed [...] in this encounter Progress Notes Aura Sandhu, TETE, C.N.P., D.N.P. - 12/31/2019 2:00 PM CDT [...] understanding of the content. Aura Sandhu APRN, Danie.N.Frankie., D.N.P. documented in this encounter Plan of Treatment Upcoming Encounters Date Type Specialty Care Team Description 06/22/2022 Appointment Laboratory Medicine Rusty Vee M.D. [address] [place] [phone] 06/22/2022 Diagnostic Pulmonary Medicine Rusty Vee M.D. [address] [place] [phone] 06/22/2022 Diagnostic Pulmonary Medicine Rusty Vee M.D. [address] [place] [phone] 06/22/2022 Appointment Radiology Rusty Vee M.D. [address] [place] [phone] 06/23/2022 Clinical Communication Admitting/Central Scheduling 06/28/2022 Appointment Pulmonary Medicine Rusty Vee M.D. [address] [place] [phone] 06/28/2022 Appointment Pulmonary Medicine Rusty Vee M.D. [address] [place] [phone] documented as of this encounter Visit Diagnoses Diagnosis Cyst Epidermal - Primary documented in this encounter Care Teams Fuel Storage Technician Relationship Specialty Start Date End Date Aura Sandhu APRN, C.N.P., D.N.P. PCP - General 09/25/[address] [place] [phone] documented as of this encounter
--- OUTSIDE RECORDS SUMMARY | 2022-05-25 20:58 | XMS_ITS | Encounter Summary ---
:1975 Author Organization [facility] Address [address] [place] [address] Care Team Providers Name Role Phone Jacki Luther P.A.-C. Primary Care Provider Encounter Details Date Type Department Care Team Description 07/18/2019 Hospital Encounter Department of Sherron Whelan Mammogram Radiology in [place] Cristhian Simmons, Average Risk Patient [facility] [place], [place] P.A. [address] [place] [phone] Social History Tobacco Use Types Packs/Day Years [...] or relatives? How often do you attend confucianist or More than 4 times per year 05/04/2022 bahai services? Do you belong to any clubs or Yes 05/04/2022 organizations such as confucianist groups, unions, fraternal or athletic groups, or [...] at Date Recorded Female 05/03/2022 7:07 PM ACTIONSCRIPT DEVELOPER documented as of this encounter Medications at [...] carbamide peroxide Administer 5 drops 30 mL 12/31/2019 (DEBROX) 6.5 % otic into each [...] Appointment Laboratory Medicine Rusty Vee M.D. [address] [place] [phone] 06/22/2022 Diagnostic Pulmonary Medicine Rusty Vee M.D. [address] [place] [phone] 06/22/2022 Diagnostic Pulmonary Medicine Rusty Vee M.D. [address] [place] [phone] 06/22/2022 Appointment Radiology Rusty Vee M.D. [address] [place] [phone] 06/23/2022 Clinical Communication Admitting/Central Scheduling 06/28/2022 Appointment Pulmonary Medicine Rusty Vee M.D. [address] [place] [phone] 06/28/2022 Appointment Pulmonary Medicine Rusty Vee M.D. [address] [place] [phone] documented as of this encounter Procedures Procedure Name Priority Date/Time Associated Comments Diagnosis BI BREAST RAD - Routine 07/18/2019 3:02 Screening Results for this SCREENING (most inpatients PM ACTIONSCRIPT DEVELOPER Mammogram Average proced ure are in BILATERAL and all Risk Patient the results outpatients) section. documented in this encounter Results (ABNORMAL) BI Breast Screening Bilateral (07/18/2019 3:02 PM ACTIONSCRIPT DEVELOPER) Anatomical Region Laterality Modality Breast, Breast Imaging RST LOS, Breast Imaging ARZ LOS, [place] st Bilateral Mammography Imaging FLA LOS Specimen (Source) Anatomical Collection Method Collection Time Re ceived Time Location / / Volume Laterality 07/19/2019 8:47 AM ACTIONSCRIPT DEVELOPER Impressions 07/19/2019 8:52 AM ACTIONSCRIPT DEVELOPER Incomplete. ??Need additional imaging evaluation. RECOMMENDATION: ??Additional Imaging ASSESSMENT: ??BI-RADS: 0 - Incomplete: N eeds Additional Imaging Evaluation. Narrative 07/19/2019 8:52 AM ACTIONSCRIPT DEVELOPER EXAM: ??BI BREAST SCREENING BILATERAL Current study was evaluated with a [employer] [facility] Aided Detection (CAD) system. INDICATION: ??Screening mammogram. [...] BILATERAL Current study was evaluated with a [employer] [facility] Aided Detection (CAD) system. INDICATION: Screening mammogram. [...] ds Additional Imaging Evaluation. Sherron Whelan P.A.-C., PMichaelAMichael IMG BI PROCEDURES documented in this encounter Visit Diagnoses Diagnosis Screening Mammogram Average Risk Patient documented in this encounter Care Teams Railcar Mechanic Relationship Specialty Start Date End Date Jacki Luther P.A.-C. PCP - General Family Medicine 05/24/18 09/24/19 documented as of this encounter
--- OUTSIDE RECORDS SUMMARY | 2022-05-25 20:58 | XMS_ITS | Encounter Summary ---
:1975 Author Organization [facility] Address [address] [place] [address] Care Team Providers Name Role Phone Aura Sandhu APRN C.N.Jayna, D.N.P. Primary Care Provider Encounter Details Date Type Department Care Team Description 09/25/2019 Orders Only Department [facility]at[facility] [address] [place] [phone] (Wo rk) Social History Tobacco Use Types [...] or relatives? How often do you attend mu-ism or More than 4 times per year 05/04/2022 taoist services? Do you belong to any clubs or Yes 05/04/2022 organizations such as mu-ism groups, unions, fraternal or athletic groups, or [...] at Date Recorded Female 05/03/2022 7:07 PM DESKTOP SUPPORT ENGINEER documented as of this encounter Plan of Treatment Upcoming Encounters Date Type Specialty Care Team Description 06/22/2022 Appointment Laboratory Medicine Rusty Vee M.D. [address] [place] [phone] 06/22/2022 Diagnostic Pulmonary Medicine Rusty Vee M.D. [address] [place] [phone] 06/22/2022 Diagnostic Pulmonary Medicine Rusty Vee M.D. [address] [place] [phone] 06/22/2022 Appointment Radiology Rusty Vee M.D. [address] [place] [phone] 06/23/2022 Clinical Communication Admitting/Central Scheduling 06/28/2022 Appointment Pulmonary Medicine Rusty Vee M.D. [address] [place] [phone] 06/28/2022 Appointment Pulmonary Medicine Rusty Vee M.D. [address] [place] [phone] documented as of this encounter Visit Diagnoses Not on filedocumented in this encounter Care Teams Automatic Lathe Tender Relationship Specialty Start Date End Date Aura Sandhu APRN, C.N.P., D.N.P. PCP - General 09/25/[address] [phone] documented as of this encounter
--- OUTSIDE RECORDS SUMMARY | 2022-05-25 20:58 | XMS_ITS | Encounter Summary ---
:1975 Author Organization [facility] Address [address] [place] [address] Care Team Providers Name Role Phone Jacki Luther P.A.-C. Primary Care Provider Reason for Visit Reason Comments Please resolve Encounter Details Date Type Department Care Team Description 09/09/2019 Clinical Department of Sri Alas Please res yohana Communication Anticoagulation in J Tejinder Coburn [facility] mao [phone] [place] [address] (Work) EFRAÍN JURADO [phone] Social History Tobacco Use Types Packs/Day Years [...] or relatives? How often do you attend restorationist or More than 4 times per year 05/04/2022 cheondoism services? Do you belong to any clubs or Yes 05/04/2022 organizations such as restorationist groups, unions, fraternal or athletic groups, or [...] at Date Recorded Female 05/03/2022 7:07 PM INFECTION PREVENTION COORDINATOR documented as of this encounter Miscellaneous Notes Telephone Encounter - Love Medina R.N. - 09/09/2019 11:03 AM CDT Done Telephone Encounter - Sri Alas - 09/09/2019 10:45 AM CDT Patient is being managed by [facility], please resolve ACO episode. documented in this encounter Plan of Treatment Upcoming Encounters Date Type Specialty Care Team Description 06/22/2022 Appointment Laboratory Medicine Rusty Vee M.D. [address] [place] [phone] 06/22/2022 Diagnostic Pulmonary Medicine Rusty Vee M.D. [address] [place] [phone] 06/22/2022 Diagnostic Pulmonary Medicine Rusty Vee M.D. [address] [place] [phone] 06/22/2022 Appointment Radiology Rusty Vee M.D. [address] [place] [phone] 06/23/2022 Clinical Communication Admitting/Central Scheduling 06/28/2022 Appointment Pulmonary Medicine Rusty Vee M.D. [address] [place] [phone] 06/28/2022 Appointment Pulmonary Medicine Rusty Vee M.D. [address] [place] [phone] documented as of this encounter Visit Diagnoses Not on filedocumented in this encounter Care Teams Consulting Psychiatrist Relationship Specialty Start Date End Date Jacki Luther P.A.-C. PCP - General Family Medicine 05/24/18 09/24/19 documented as of this encounter
--- OUTSIDE RECORDS SUMMARY | 2022-05-25 20:58 | XMS_ITS | Encounter Summary ---
:1975 Author Organization [facility] Address [address] [place] [address] Care Team Providers Name Role Phone Jacki Luther P.A.-C. Primary Care Provider Encounter Details Date Type Department Care Team Description 08/01/2019 Hospital Encounter Department of Sherron Whelan Mammogram Radiology in [facility] Cristhian Simmons[facility], [place] P.A. [address] [place] [phone] Social History Tobacco Use Types Packs/Day Years [...] or relatives? How often do you attend oriental orthodox or More than 4 times per year 05/04/2022 mosque services? Do you belong to any clubs or Yes 05/04/2022 organizations such as oriental orthodox groups, unions, fraternal or athletic groups, [...] at Date Recorded Female 05/03/2022 7:07 PM NAVAL AIRCREWMAN OPERATOR documented as of this encounter Medications [...] Appointment Laboratory Medicine Rusty Vee M.D. [address] [place] [phone] 06/22/2022 Diagnostic Pulmonary Medicine Rusty Vee M.D. [address] [place] [phone] 06/22/2022 Diagnostic Pulmonary Medicine Rusty Vee M.D. [address] [place] [phone] 06/22/2022 Appointment Radiology Rusty Vee M.D. [address] [place] [phone] 06/23/2022 Clinical Communication Admitting/Central Scheduling 06/28/2022 Appointment Pulmonary Medicine Rusty Vee M.D. [address] [place] [phone] 06/28/2022 Appointment Pulmonary Medicine Rusty Vee M.D. [address] [place] [phone] documented as of this encounter Visit Diagnoses Diagnosis Abnormal Mammogram documented in this encounter Care Teams Sewing Techniques Demonstrator Relationship Specialty Start Date End Date Jacki Luther P.A.-C. PCP - General Family Medicine 05/24/18 09/24/19 documented as of this encounter
--- OUTSIDE RECORDS SUMMARY | 2022-05-25 20:58 | XMS_ITS | Encounter Summary ---
:1975 Author Organization [facility] Address [address] [place] [address] Care Team Providers Name Role Phone Aura Sandhu APRN C.N.P., D.N.P. Primary Care Provider Encounter Details Date Type Department Care Team Description 09/25/2019 Clinical Communication Department of [facility] Iris Luther [facility], [place] Marsha P.A.-C [facility], [phone] [place] [address] [phone] (Work) [phone] Social History Tobacco Use Types Packs/Day Years [...] More than 4 times per year 05/04/2022 taoism services? Do you belong to any clubs [...] at Date Recorded Female 05/03/2022 7:07 PM MAT GAUGER documented as of this encounter Plan of Treatment Upcoming Encounters Date Type Specialty Care Team Description 06/22/2022 Appointment Laboratory Medicine Rusty Vee M.D. [address] [place] [phone] 06/22/2022 Diagnostic Pulmonary Medicine Rusty Vee M.D. [address] [place] [phone] 06/22/2022 Diagnostic Pulmonary Medicine Rusty Vee M.D. [address] [place] [phone] 06/22/2022 Appointment Radiology Rusty Vee M.D. [address] [place] [phone] 06/23/2022 Clinical Communication Admitting/Central Scheduling 06/28/2022 Appointment Pulmonary Medicine Rusty Vee M.D. [address] [place] [phone] 06/28/2022 Appointment Pulmonary Medicine Rusty Vee M.D. [address] [place] [phone] documented as of this encounter Visit Diagnoses Not on filedocumented in this encounter Care Teams Regional Manager Relationship Specialty Start Date End Date Aura Sandhu APRN, C.N.P., D.N.P. PCP - General 09/25/[address] [place] [phone] documented as of this encounter
--- OUTSIDE RECORDS SUMMARY | 2022-05-25 20:58 | XMS_ITS | Encounter Summary ---
:1975 Author Organization [facility] Address [address] [place] [address] Care Team Providers Name Role Phone Jacki Luther P.A.-C. Primary Care Provider Reason for Visit Reason Comments Med Refill Encounter Details Date Type Department Care Team Description 08/23/2019 Refill Department of Dermatology in Jus [place] M.D. Med Refill [facility] chidi [address] [place] [phone] [place], [place] [phone] Social History Tobacco Use Types Packs/Day Years [...] More than 4 times per year 05/04/2022 pentecostalism services? Do you belong to any clubs [...] at Date Recorded Female 05/03/2022 7:07 PM QUALIFICATION ENGINEER documented as of this encounter Plan of Treatment Upcoming Encounters Date Type Specialty Care Team Description 06/22/2022 Appointment Laboratory Medicine Rusty Vee M.D. [address] [place] [phone] 06/22/2022 Diagnostic Pulmonary Medicine Rusty Vee M.D. [address] [place] [phone] 06/22/2022 Diagnostic Pulmonary Medicine Rusty Vee M.D. [address] [place] [phone] 06/22/2022 Appointment Radiology Rusty Vee M.D. [address] [place] [phone] 06/23/2022 Clinical Communication Admitting/Central Scheduling 06/28/2022 Appointment Pulmonary Medicine Rusty Vee M.D. [address] [place] [phone] 06/28/2022 Appointment Pulmonary Medicine Rusty Vee M.D. [address] [place] [phone] documented as of this encounter Visit Diagnoses Not on filedocumented in this encounter Care Teams Personal Shopper Relationship Specialty Start Date End Date Jacki Luther P.A.-C. PCP - General Family Medicine 05/24/18 09/24/19 documented as of this encounter
--- OUTSIDE RECORDS SUMMARY | 2022-05-25 20:58 | XMS_ITS | Encounter Summary ---
:1975 Author Organization [facility] Address [address] [place] [address] Care Team Providers Name Role Phone Jacki Luther P.A.-C. Primary Care Provider Encounter Details Date Type Department Care Team Description 08/27/2019 Hospital Encounter Department of Sherron Whelan Primary Hypercoagulation Syndrome (HCC); Laboratory Medicine Cristhian Simmons, Hiwot esposito For Therapeutic Drug Therapy; in Nitish Makcey Correction A nticoagulant Treatment [address] [phone] Social History Tobacco Use Types [...] or relatives? How often do you attend episcopal or More than 4 times per year 05/04/2022 scientology services? Do you belong to any clubs or Yes 05/04/2022 organizations such as episcopal groups, unions, fraternal or athletic groups, or [...] or slept in a long-term (including now)? Sex Assigned at Date Recorded Female 05/03/2022 7:07 PM MEDICAL BILLING AND CODING INSTRUCTOR documented as of this encounter Medications at [...] Appointment Laboratory Medicine Rusty Vee M.D. [address] [place] [phone] 06/22/2022 Diagnostic Pulmonary Medicine Rusty Vee M.D. [address] [place] [phone] 06/22/2022 Diagnostic Pulmonary Medicine Rusty Vee M.D. [address] [place] [phone] 06/22/2022 Appointment Radiology Rusty Vee M.D. [address] [place] [phone] 06/23/2022 Clinical Communication Admitting/Central Scheduling 06/28/2022 Appointment Pulmonary Medicine Rusty Vee M.D. [address] [place] [address] 06/28/2022 Appointment Pulmonary Medicine Rusty Vee M.D. [address] [place] [address] documented as of this encounter Procedures Procedure Name Priority Date/Time Associated Diagnosis Comme nts PROTHROMBIN TIME Routine 08/27/2019 3:07 Primary Hypercoagulat ion Results for this (PT), P PM MEDICAL BILLING AND CODING INSTRUCTOR Syndrome (HCC) procedure are in Monitoring For the results Therapeutic Drug Therapy section. Nurse Ob Anticoagulant Treatment documented in this encounter Results (ABNORMAL) Prothrombin Time (PT) (08/27/2019 3:07 PM MEDICAL BILLING AND CODING INSTRUCTOR) [facility] Method Time Signature Prothrombin 61.7 (H) 9.4 - 12.5 08/27/2019 CNFL Time, P sec 3:25 PM MEDICAL BILLING AND CODING INSTRUCTOR INR 5.1 (CH) 0.9 - 1.1 08/27/2019 CNFL 3:25 PM MEDICAL BILLING AND CODING INSTRUCTOR Comment: ----ADDITIONAL INFORMATION---- Standard intensity warfarin therapeutic range: 2.0 to 3.0 ?? High intensity warfarin therapeutic rang e: 2.5 to 3.5 Specimen Anatomical Collection Method Collection Time Receive d Time (Source) Location / / Volume Laterality Blood (Blood, 08/27/2019 3:07 PM 08/27/19 3:09 Venous) MEDICAL BILLING AND CODING INSTRUCTOR PM MEDICAL BILLING AND CODING INSTRUCTOR Sherron Whelan P.A.-C., P.A. LAB BLOOD ADD-ON Performing Organization Address City/State/ZIP Code Phon e Number [facility]- [address] [place] [address] [place] [address] [place] [address] [address] documented in this encounter Visit Diagnoses Diagnosis Primary Hypercoagulation Syndrome (HCC) Monitoring For Therapeutic Drug Therapy Nurse Ob (Current) Anticoagulant Treatm ent documented in this encounter Care Teams Jumpbasting Lining Baster Relationship Specialty Start Date End Date Jacki Luther P.A.-C. PCP - General Family Medicine 05/24/18 09/24/19 documented as of this encounter
--- OUTSIDE RECORDS SUMMARY | 2022-05-25 20:58 | XMS_ITS | Encounter Summary ---
:1975 Author Organization [facility] Address [address] [place] [address] Care Team Providers Name Role Phone Jacki Luther P.A.-C. Primary Care Provider [phone] Reason for Referral Outpatient (Routine) - Closed Specialty Diagnoses / Procedures Referred By Contact Refer red To Contact Dermatology Jus Foley M.D . [facility] [address] [place] [address] Referral ID Status Reason Start Date Expiration Date Visits Requ ested Visits Authorized [id number] Closed 06/27/2019 06/26/2020 1 1 Scheduling Instructions Please schedule for follow up on 08/13/19 20 @ 230-3pm SERVICE DEMONSTRATOR Reason for Visit Reason Onset Date Comments Light therapy 06/20/2019 Encounter Details Date Type Department Care Team Description 06/20/2019 Clinical Communication Department of Jus Foley ht therapy Dermatology in Seth Cornejo M.D. [place], [place] [address] [phone] Social History Tobacco Use Types Packs/Day Years [...] or relatives? How often do you attend jew or More than 4 times per year 05/04/2022 sabianist services? Do you belong to any clubs or Yes 05/04/2022 organizations such as jew groups, unions, fraternal or athletic groups, or [...] or slept in a intermediate (including now)? Sex Assigned at Date Recorded Female 05/03/2022 7:07 PM HOME SERVICE DEMONSTRATOR documented as of this encounter Miscellaneous Notes [...] 06/19/19. Name of Medication (if relevant): na SERVICE DEMONSTRATOR documented in this encounter Plan of Treatment Upcoming Encounters Date Type Specialty Care Team Description 06/22/2022 Appointment Laboratory Medicine Rusty Vee M.D. [address] [place] [phone] 06/22/2022 Diagnostic Pulmonary Medicine Rusty Vee M.D. [address] [place] [address] [phone] 06/22/2022 Diagnostic Pulmonary Medicine Rusty Vee M.D. [address] [place] [phone] 06/22/2022 Appointment Radiology Rusty Vee M.D. [address] [place] [phone] 06/23/2022 Clinical Communication Admitting/Central Scheduling 06/28/2022 Appointment Pulmonary Medicine Rusty Vee M.D. 200 [place] [phone] 06/28/2022 Appointment Pulmonary Medicine Rusty Vee M.D. 200 [place] [address] Scheduled Referrals Name Type Priority Associated Order Schedule Diagnoses Dermatology office Outpatient Referral Routine Ex pected: visit (clinic) 08/13/2019 (Approximate), Expires: 06/27/2022 documented as of this encounter Visit Diagnoses Not on filedocumented in this encounter Care Teams Autocad Draftsman Relationship Specialty Start Date End Date Jacki Luther P.A.-C. PCP - General Family Medicine 05/24/18 09/24/19 documented as of this encounter
--- OUTSIDE RECORDS SUMMARY | 2022-05-25 20:58 | XMS_ITS | Encounter Summary ---
:1975 Author Organization [facility] Address [address] [place] [address] Care Team Providers Name Role Phone Aura Sandhu APRN, C.N.P., D.N.P. Primary Care Provider Reason for Visit Reason Comments Triage COVID Nurse Shani Encounter Details Date Type Department Care Team Description 12/31/2019 Nurse Triage Department of Family Whit Hopkins Tr iage; LEE ANN Nurse Medicine, Seth Luz [facility], in [address] [facility] [place] [phone] [place] [address] [place], [place] (Work) [phone] Social History Tobacco Use [...] or relatives? How often do you attend yarsanism or More than 4 times per year 05/04/2022 yarsani services? Do you belong to any clubs or Yes 05/04/2022 organizations such as yarsanism groups, unions, fraternal or athletic groups, or [...] or slept in a custodial (including now)? Sex Assigned at Date Recorded Female 05/03/2022 7:07 PM MACHINIST FIRST CLASS documented as of this encounter Miscellaneous Notes Telephone Encounter - Whit Hopkins R.N. - 12/31/2019 8:57 AM CDT COVID-19 Nurse [...] please re-submit a new e- visit. EducationalResource: https://www.cdc.gov/coronavirus/2019-ncov/sdiqybf-zfjwbfp-uobw/index.html Education: patient/caregiver Patient/caregiver able to teach back Patient agreeable to plan of care: Yes The following references were used: [facility] [place] [facility] novel coronavirus (COVID- 19) resources documented in this encounter Plan of Treatment Upcoming Encounters Date Type Specialty Care Team Description 06/22/2022 Appointment Laboratory Medicine Rusty Vee M.D. [address] [place] [phone] 06/22/2022 Diagnostic Pulmonary Medicine Rusty Vee M.D. [address] [place] [phone] 06/22/2022 Diagnostic Pulmonary Medicine Rusty Vee M.D. [address] [place] [phone] 06/22/2022 Appointment Radiology Rusty Vee M.D. [address] [place] [phone] 06/23/2022 Clinical Communication Admitting/Central Scheduling 06/28/2022 Appointment Pulmonary Medicine Rusty Vee M.D. [address] [place] [phone] 06/28/2022 Appointment Pulmonary Rusty Mattson M.D. [address] [place] [phone] documented as of this encounter Visit Diagnoses Not on filedocumented in this encounter Care Teams Seal Mixer Relationship Specialty Start Date End Date Aura Sandhu APRN, C.N.P., D.N.P. PCP - General 09/25/[address] [place] [phone] documented as of this encounter
--- OUTSIDE RECORDS SUMMARY | 2022-05-25 20:58 | XMS_ITS | Encounter Summary ---
:1975 Author Organization [facility] Address [address] [place] [address] Care Team Providers Name Role Phone Jacki Luther P.A.-C. Primary Care Provider [phone] Reason for Referral MRI/CAT/PET Scan (Routine) - Closed Specialty Diagnoses / Procedures Referred By Contact Refer red To Contact Radiology Diagnoses Abnormal Lung Chest Xray Tanya King C.N.[facility] Procedures CT Chest with IV Contrast [place] [facility] [address] [place], [place] [address] Referral ID Status Reason Start Date Expiration Date Visits Requ ested Visits Authorized [id number] Closed 09/10/2019 09/09/2020 1 1 Reason for Visit MRI/CAT/PET Scan (Routine) - Closed Specialty Diagnoses / Procedures Referred By Contact Refer red To Contact Radiology Diagnoses Abnormal Lung Chest Xray Tanya King C.N.[facility] Procedures CT Chest with IV Contrast [place] [facility] [address] [place], [place] [address] Referral ID Status Reason Start Date Expiration Date Visits Requ ested Visits Authorized [id number] Closed 09/10/2019 09/09/2020 1 1 Encounter Details Date Type Department Care Team Description 09/16/2019 Hospital Encounter Department of Tanya King [facility] Lung Chest Radiology in Seth Martinez C.N.P. [place], [place] [address] [address] [place], [place] [phone] (Work) [phone] Social History Tobacco Use Types Packs/Day Years [...] at Date Recorded Female 05/03/2022 7:07 PM HUMAN PROJECTILE documented as of this encounter Medications at [...] Laboratory Medicine Rusty Vee M.D. [address] [place] [phone] 06/22/2022 Diagnostic Pulmonary Medicine Rusty Vee M.D. [address] [place] [phone] 06/22/2022 Diagnostic Pulmonary Medicine Rusty Vee M.D. [address] [place] [phone] 06/22/2022 Appointment Radiology Rusty Vee M.D. [address] [place] [phone] 06/23/2022 Clinical Communication Admitting/Central Scheduling 06/28/2022 Appointment Pulmonary Medicine Rusty Vee M.D. [address] [place] [phone] 06/28/2022 Appointment Pulmonary Medicine Rusty Vee M.D. [address] [place] [phone] documented as of this encounter Procedures Procedure [...] 1045 documented in this encounter Care Teams Antiquer Relationship Specialty Start Date End Date Jacki Luther P.A.-C. PCP - General Family Medicine 05/24/18 09/24/19 documented as of this encounter
--- OUTSIDE RECORDS SUMMARY | 2022-05-25 20:58 | XMS_ITS | Encounter Summary ---
:1975 Author Organization [facility] Address [address] [place] [address] Care Team Providers Name Role Phone Jacki Luther P.A.-C. Primary Care Provider Reason for Visit Reason Comments Follow-up Outpatient (Routine) - Closed Specialty Diagnoses / Procedures Referred By Contact Refer red To Contact Dermatology Jus Foley M.D . [facility] Region [address] [place] [address] Referral ID Status Reason Start Date Expiration Date Visits Requ ested Visits Authorized [id number] Closed 06/27/2019 06/26/2020 1 1 Encounter Details Date Type Department Care Team Description 08/13/2019 Office Visit Department of Jus Foley, Psoriasis (Primary Dx) Dermatology in [place], [place] [address] [place] [phone] Social History Tobacco Use Types Packs/Day Years [...] 05/04/2022 organizations such as rastafarian groups, unions, [employer] or athletic groups, or school groups? How [...] at Date Recorded Female 05/03/2022 7:07 PM WIRE WEAVER HELPER documented as of this encounter Progress Notes Jus Foley M.D. - 08/13/2019 2:30 PM CST CHIEF COMPLAINT Recheck psoriasis HISTORY OF THE PRESENT ILLNESS Hue Medina is a pleasant 44 y.o. 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 She is??accompanied by her mother and presents for a recheck of psoriasis. During my initial visit with her on 04/23/18, she reported that she initially experienced psoriasis eruptions at the age of 12. She was treating the psoriasis with qury-arz-blzoojj Oxipor 5% coal-tar lotion and symptoms were [...] I recommended narrow band UVB phototherapy at [facility]. The patientand her mother were interested [...] I recommended narrow band UVB phototherapy at [facility]. The patient and her mother declined [...] patient recently returned from a trip to [place] where she received a significant amount of [...] Electronically Signed: simeon Morgan. 08/13/2019. 10:07 AM WIRE WEAVER HELPER. I, Jus Foley M.D., personally performed the services described in this documentation. All medical record entries made by the scribe were at my direction and in my presence. I have reviewed the chart and discharge instructions (if applicable) and agree that the record reflects my personal performance and is accurate and complete. Jus Foley M.D. . 08/13/2019. 5:14 PM WIRE WEAVER HELPER. WEAVER HELPER documented in this encounter Plan of Treatment Upcoming Encounters Date Type Specialty Care Team Description 06/22/2022 Appointment Laboratory Medicine Rusty Vee M.D. [address] [place] [phone] 06/22/2022 Diagnostic Pulmonary Medicine Rusty Vee M.D. [address] [place] [phone] 06/22/2022 Diagnostic Pulmonary Medicine Rusty Vee M.D. [address] [place] [phone] 06/22/2022 Appointment Radiology Rusty Vee M.D. [address] [place] [phone] 06/23/2022 Clinical Communication Admitting/Central Scheduling 06/28/2022 Appointment Pulmonary Medicine Rusty Vee M.D. [address] [place] [phone] 06/28/2022 Appointment Pulmonary Medicine Rusty Vee M.D. [address] [place] [phone] documented as of this encounter Visit Diagnoses Diagnosis Psoriasis - Primary documented in this encounter Care Teams Fur Blower Relationship Specialty Start Date End Date Jacki Luther P.A.-C. PCP - General Family Medicine 05/24/18 09/24/19 documented as of this encounter
--- OUTSIDE RECORDS SUMMARY | 2022-05-25 20:58 | XMS_ITS | Encounter Summary ---
:1975 [address] [facility] Address [address] [place] [address] Care Team Providers Name Role Phone Aura Sandhu APRN C.N.P., D.N.P. Primary Care Provider Encounter Details Date Type Department Care Team Description 08/27/2019 Clinical Communication Department of Jus Foley, Dermatology in [place], [place] [address] [place] [phone] Social History Tobacco Use Types Packs/Day Years [...] at Date Recorded Female 05/03/2022 7:07 PM SAWMILL TALLY CLERK documented as of this encounter Miscellaneous Notes [...] of Medication (if relevant): Calcipotriene ointment 0.005% ILL TALLY CLERK documented in this encounter Plan of Treatment Upcoming Encounters Date Type Specialty Care Team Description 06/22/2022 Appointment Laboratory Medicine Rusty Vee M.D. [address] [place] [phone] 06/22/2022 Diagnostic Pulmonary Medicine Rusty Vee M.D. [address] [place] [phone] 06/22/2022 Diagnostic Pulmonary Medicine Rusty Vee M.D. [address] [place] [phone] 06/22/2022 Appointment Radiology Rusty Vee M.D. [address] [place] [phone] 06/23/2022 Clinical Communication Admitting/Central Scheduling 06/28/2022 Appointment Pulmonary Medicine Rusty Vee M.D. [address] [place] [phone] 06/28/2022 Appointment Pulmonary Medicine Rusty Vee M.D. [address] [place] [phone] documented as of this encounter Visit Diagnoses Not on filedocumented in this encounter Care Teams Sewing Machine Operator Paper Bags Relationship Specialty Start Date End Date Aura Sandhu APRN, C.N.P., D.N.P. PCP - General 09/25/[address] [phone] documented as of this encounter
--- OUTSIDE RECORDS SUMMARY | 2022-05-25 20:58 | XMS_ITS | Encounter Summary ---
:1975 Author Organization [facility] Address [address] [place] [address] Care Team Providers Name Role Phone Jacki [...] or relatives? How often do you attend restorationism or More than 4 times per year 05/04/2022 pentecostal services? Do you belong to any clubs or Yes 05/04/2022 organizations such as restorationism groups, unions, fraternal or athletic groups, or [...] at Date Recorded Female 05/03/2022 7:07 PM SHOE PLANNER documented as of this encounter Plan of Treatment Upcoming Encounters Date Type Specialty Care Team Description 06/22/2022 Appointment Laboratory Medicine Rusty Vee M.D. [address] [place] [phone] 06/22/2022 Diagnostic Pulmonary Medicine Rusty Vee M.D. [address] [place] [phone] 06/22/2022 Diagnostic Pulmonary Medicine Rusty Vee M.D. [address] [place] [phone] 06/22/2022 Appointment Radiology Rusty Vee M.D. [address] [place] [phone] 06/23/2022 Clinical Communication Admitting/Central Scheduling 06/28/2022 Appointment Pulmonary Medicine Rusty Vee M.D. [address] [place] [phone] 06/28/2022 Appointment Pulmonary Rusty Mattson M.D. [address] [place] [phone] documented as of this encounter Procedures Procedure Name Priority Date/Time Associated Comments Diagnosis DERMATOLOGY IMAGE Routine 08/13/2019 2:59 PM Resu lts for this EXAM SHOE PLANNER procedure are i n the results section. documented in this encounter Results Generalized 500-Dermatology Image Exam (08/13/2019 2:59 PM SHOE PLANNER) Specimen (Source) Anatomical Collection Method Collection Time Re ceived Time Location / / Volume Laterality 08/13/2019 2:56 PM SHOE PLANNER Narrative [facility] - 08/13/2019 2:59 PM SHOE PLANNER This order has been created and auto-finalized [...] on filedocumented in this encounter Care Teams Hospital Pharmacy Director Relationship Specialty Start Date End Date Jacki Luther P.A.-C. PCP - General Family Medicine 05/24/18 09/24/19 documented as of this encounter
--- OUTSIDE RECORDS SUMMARY | 2022-05-25 20:58 | XMS_ITS | Encounter Summary ---
:1975 Author Organization [facility] Address [address] [place] [address] Care Team Providers Name Role Phone Jacki Luther P.A.-C. Primary Care Provider Encounter Details Date Type Department Care Team Description 08/27/2019 Anticoagulation Visit Department of Marina Luther Hypercoagulation Syndrome (HCC); Anticoagulation in [place] For Therapeutic Drug Therapy; Seth Car P.A.-C. Adult Psychiatrist Anticoagulant Treatment; [address] Anticoagulant Therapy [address] [place] [address] [place] [address] [place], [place] [phone] [address] Social History Tobacco Use Types Packs/Day Years [...] at Date Recorded Female 05/03/2022 7:07 PM ACCOUNT REVIEW SPECIALIST documented as of this encounter Progress Notes Neda Yeager R.N. - 08/27/2019 2:30 PM CST Warfarin Maintenance Nursing Protocol Goal Range 2.0-3.0 (version approved 02/24/17) Visit Type: Patient presents for Wqhv-qs-Hjyw visit in Anticoagulation Service. Primary reason for visit: Routine f/u OR f/u per previous visit recommendations Information provided by: patient and momFabiola Inclusion Criteria: All inclusion criteria met. Proceeded to exclusion criteria. Exclusion Criteria: No exclusion criteria, proceeded to screening criteria. Screening Criteria: -Current INR value has changed by = or > 1 since last INR check: NO dose change was made within the last 7 days. Proceeded to maintenance warfarin dosing and follow-up -Patient has had a medication change or has added a new medication since last INR check: Med: Tylenol, azithromycin. Reviewed Appendix A-medication addition or change DOES involve a medication that interacts with warfarin. Proceeded to Appendix A: Medication Interaction List for dosing and follow-up. -Patient has had a change in diet, lifestyle, alcohol intake, or health status in the last 3 days. Proceeded to maintenance warfarin dosing. Patient to return for follow-up INR in 7-10 days or sooner if indicated by protocol follow-up. Additional info: Pt was evaluated at [facility] on 08/23/2019. Positive for Influenza A and also diagnosed with pneumonia. Completed Zpak this am. Has also been taking Theraflu (contains Tylenol) for comfort. Appetite--no much change. Previous INR was therapeutic. Today???s INR is Supratherapeutic, Causes: Medication change: azithromycin, Theraflu and Health change: Influenza A and pneumonia. Dosing and follow up recommendation: INR 5.1-6. Confirmatory draw: yes. HOLD warfarin x 1 day. Decrease weekly dose 25% (25% decrease DOES include the hold). . Next INR: within 3 days. Plan reviewed/approved by Danay Mcwilliams [facility]. POC INR 5.1 Confirmatory INR 5.1 Pt on LMWH: No Patient Visit summary provided to: motherFabiola. Plan made at time of call that would call with dosing after results of confirmatory known. repeats back dosing instructions and has no further questions at this time. Patient is agreeable to the plan of care Yes UNT REVIEW SPECIALIST documented in this encounter Plan of Treatment Upcoming Encounters Date Type Specialty Care Team Description 06/22/2022 Appointment Laboratory Medicine Rusty Vee M.D. [address] [place] [phone] 06/22/2022 Diagnostic Pulmonary Medicine Rusty Vee M.D. [address] [place] [phone] 06/22/2022 Diagnostic Pulmonary Medicine Rusty Vee M.D. [address] [place] [phone] 06/22/2022 Appointment Radiology Rusty Vee M.D. [address] [place] [phone] 06/23/2022 Clinical Communication Admitting/Central Scheduling 06/28/2022 Appointment Pulmonary Rusty Mattson M.D. [address] [place] [phone] 06/28/2022 Appointment Pulmonary Medicine Rusty Vee M.D. [address] [place] [phone] documented as of this encounter Procedures Procedure Name Priority Date/Time Associated Diagnosis Comme nts INR, POCT, B Routine 08/27/2019 2:42 PM Results f or this ACCOUNT REVIEW SPECIALIST procedure are i n the results section . documented in this encounter Results (ABNORMAL) Prothrombin Time (PT) (08/27/2019 3:07 PM ACCOUNT REVIEW SPECIALIST) [facility] Method Time Signature Prothrombin 61.7 (H) 9.4 - 12.5 08/27/2019 CNFL Time, P sec 3:25 PM ACCOUNT REVIEW SPECIALIST INR 5.1 (CH) 0.9 - 1.1 08/27/2019 CNFL 3:25 PM ACCOUNT REVIEW SPECIALIST Comment: ----ADDITIONAL INFORMATION---- Standard intensity warfarin therapeutic range: 2.0 to 3.0 ?? High intensity warfarin therapeutic rang e: 2.5 to 3.5 Specimen Anatomical Collection Method Collection Time Receive d Time (Source) Location / / Volume Laterality Blood (Blood, 08/27/2019 3:07 PM 08/27/19 20 3:09 Venous) ACCOUNT REVIEW SPECIALIST PM ACCOUNT REVIEW SPECIALIST Sherron Whelan P.A.-C., P.AMichael LAB BLOOD ADD-ON Performing Organization Address [facility] Phon e Number [address] [address] [place] [address] (ABNORMAL) INR, POCT (08/27/2019 2:42 PM ACCOUNT REVIEW SPECIALIST) P athologist Signature INR, POCT, B >5.0 (CH) 08/27/2019 CNFL 2:42 PM ACCOUNT REVIEW SPECIALIST Comment: ----ADDITIONAL INFORMATION---- Standard intensity warfarin therapeutic range: 2.0 to 3.0 ?? High intensity warfarin therapeutic rang e: 2.5 to 3.5 Specimen Anatomical Collection Method Collection Time Receive d Time (Source) Location / / Volume Laterality 08/27/2019 2:42 PM 0 2:54 ACCOUNT REVIEW SPECIALIST PM ACCOUNT REVIEW SPECIALIST Generic [facility] POCT ORDERABLES - DEVICE Performing Organization Address [facility] Phon e Number [address] [address] [place] [address] System in [address] documented in this encounter Visit Diagnoses Diagnosis Primary Hypercoagulation Syndrome (HCC) Monitoring For Therapeutic Drug Therapy Adult Psychiatrist (Current) Anticoagulant Treatm ent Anticoagulant Therapy documented in this encounter Care Teams Diplomatic Officer Relationship Specialty Start Date End Date Jacki Luther P.A.-C. PCP - General Family Medicine 05/24/18 09/24/19 documented as of this encounter
--- OUTSIDE RECORDS SUMMARY | 2022-05-25 20:58 | XMS_ITS | Encounter Summary ---
:1975 Author Organization [facility] Address [address] [place] [address] Care Team Providers Name Role Phone Aura Sandhu APRN C.N.P., D.N.P. Primary Care Provider Encounter Details Date Type Department Care Team Description 09/25/2019 Clinical Communication Department of Jus Foley, [facility] [place], [place] [address] [place] [address] [address] [place] [phone] Social History Tobacco Use Types Packs/Day Years [...] at Date Recorded Female 05/03/2022 7:07 PM BACKUP ADMINISTRATOR documented as of this encounter Miscellaneous Notes Telephone Encounter - Jus Foley M.D. - 09/25/2019 1:29 PM CDT TELEPHONE CONVERSATION: I spoke to Hue's mother, Fabiola, on the phone today. Hue has improved with regard to her psoriasis and is on home narrow band UVB phototherapy 3 times per week, which was restarted in May and she has done well. At this time, I have asked them to stop the narrowband UVB phototherapy for thenext few months. She may continue the topical medications including Dovonex ointment to be applied sparingly to thick plaques on trunk and extremities 1-2 times daily Mondays through , as wellas mometasone ointment to be applied sparingly to thick plaques on trunk and extremities once daily Fridays through Sundays. I have given them refills for both these medications. I have asked that theyget by with the least amount of topical steroid and Dovonex to avoid potential side effects and theyunderstand. I would like to see her back in approximately 3 months in clinic if possible after COVID-19. All questions answered. Jus Foley M.D. CT CT Job ID: [id number]/mab documented in this encounter Plan of Treatment Upcoming Encounters Date Type Specialty Care Team Description 06/22/2022 Appointment Laboratory Medicine Rusty Vee M.D. 200 [place] [phone] 06/22/2022 Diagnostic Pulmonary Medicine Rusty Vee M.D. [address] [place] [phone] 06/22/2022 Diagnostic Pulmonary Medicine Rusty Vee M.D. [address] [place] [phone] 06/22/2022 Appointment Radiology Rusty Vee M.D. [address] [place] [phone] 06/23/2022 Clinical Communication Admitting/Central Scheduling 06/28/2022 Appointment Pulmonary Medicine Rusty Vee M.D. 200 [place] [phone] 06/28/2022 Appointment Pulmonary Medicine Rusty Vee M.D. 200 [place] [phone] documented as of this encounter Visit Diagnoses Not on filedocumented in this encounter Care Teams Production Gear Cutter Relationship Specialty Start Date End Date Aura Sandhu APRN, C.N.P., D.N.P. PCP - General 09/25/[address] [place] [phone] documented as of this encounter
--- OUTSIDE RECORDS SUMMARY | 2022-05-25 20:58 | XMS_ITS | Encounter Summary ---
:1975 Author Organization [facility] Address [address] [place] [address] Care Team Providers Name Role Phone Jacki Luther P.A.-C. Primary Care Provider [phone] Encounter Details Date Type Department Care Team Description 08/30/2019 Anticoagulation Visit Department of Hari Luther For Therapeutic Drug Therapy; Anticoagulation in Jacki Larson, Antique Collector Anticoagulant Treatment; Seth Car P.A.-C. Anticoagulant Therapy; [address] Primary Hypercoagulation Syn drome ([facility]) [address] [place] [address] [place] [address] [place], [place] [phone] [address] Social History Tobacco Use Types Packs/Day Years [...] or relatives? How often do you attend pentecostalism or More than 4 times per year 05/04/2022 moravian services? Do you belong to any clubs or Yes 05/04/2022 organizations such as pentecostalism groups, unions, fraternal or athletic groups, or [...] at Date Recorded Female 05/03/2022 7:07 PM PROPOSAL MANAGER WRITER documented as of this encounter Progress Notes Nichole Bowers R.N. - 08/30/2019 2:30 PM CST Warfarin Maintenance Nursing Protocol Goal Range 2.0-3.0 (version approved 02/24/17) Visit Type: Patient presents for Acoq-wg-Vszg visit in Anticoagulation Service. Primary reason for visit: Routine f/u OR f/u per previous visit recommendations Information provided by: patient Inclusion Criteria: All inclusion criteria met. Proceeded to exclusion criteria. Exclusion Criteria: No exclusion criteria, proceeded to screening criteria. Screening Criteria: -Patient has had a medication change or has added a new medication since last INR check: Med: tamiflu and zpack d/c 2-3 days ago. . Reviewed Appendix A- medication addition or change DOES involve a medication that interacts with warfarin. Proceeded to Appendix A: Medication Interaction List for dosing and follow-up. Additional info: pt still has a bit of cough from pneumonia and influenza. Previous INR was supratherapeutic. Today???s INR is Therapeutic. Dosing and follow up recommendation: INR 2.0-3.0 [facility]ay [facility] consulted. Dose ordered: resume usual dosing Next INR: 7-10 days per Screening Criteria because prompts INR recheck sooner than indicated by maintenance warfarin dosing and follow-up table. Pt on LMWH: No Patient Visit summary provided to: Patient provided with handout of warfarin dosing and next INR appointment. patient repeats back dosing instructions and has no further questions at this time. Patient is agreeable to the plan of care yes OSAL MANAGER WRITER documented in this encounter Plan of Treatment Upcoming Encounters Date Type Specialty Care Team Description 06/22/2022 Appointment Laboratory Medicine Rusty Vee M.D. [address] [place] [phone] 06/22/2022 Diagnostic Pulmonary Medicine Rusty Vee M.D. [address] [place] [phone] 06/22/2022 Diagnostic Pulmonary Medicine Rusty Vee M.D. [address] [place] [phone] 06/22/2022 Appointment Radiology Rusty Vee M.D. [address] [place] [phone] 06/23/2022 Clinical Communication Admitting/Central Scheduling 06/28/2022 Appointment Pulmonary Medicine Rusty Vee M.D. [address] [place] [phone] 06/28/2022 Appointment Pulmonary Medicine Rusty Vee M.D. [address] [place] [phone] documented as of this encounter Procedures Procedure Name Priority Date/Time Associated Diagnosis Comme nts INR, POCT, B Routine 08/30/2019 2:37 PM Results f or this PROPOSAL MANAGER WRITER procedure are i n the results section . documented in this encounter Results INR, POCT (08/30/2019 2:37 PM PROPOSAL MANAGER WRITER) P athologist Signature INR, POCT, B 2.8 08/30/2019 CNFL 2:37 PM PROPOSAL MANAGER WRITER Comment: ----ADDITIONAL INFORMATION---- Standard intensity warfarin therapeutic range: 2.0 to 3.0 ?? High intensity warfarin therapeutic rang e: 2.5 to 3.5 Specimen Anatomical Collection Method Collection Time Receive d Time (Source) Location / / Volume Laterality 08/30/2019 2:37 PM 0 2:38 PROPOSAL MANAGER WRITER PM PROPOSAL MANAGER WRITER Generic [facility] POCT ORDERABLES - DEVICE Performing Organization Address City/State/ZIP Code Phon e Number [facility] [address] [place] [address] [place] [address] System in [address] documented in this encounter Visit Diagnoses Diagnosis Monitoring For Therapeutic Drug Therapy Detention (Current) Anticoagulant Treatm ent Anticoagulant Therapy Primary Hypercoagulation Syndrome (HCC) documented in this encounter Care Teams Cut Out Marker Relationship Specialty Start Date End Date Jacki Luther P.A.-C. PCP - General Family Medicine 05/24/18 09/24/19 documented as of this encounter
--- OUTSIDE RECORDS SUMMARY | 2022-05-25 20:58 | XMS_ITS | Encounter Summary ---
:1975 Author Organization [facility] Address [address] [place] [address] Care Team Providers Name Role Phone Jacki Luther P.A.-C. Primary Care Provider Encounter Details Date Type Department Care Team Description 08/01/2019 Hospital Encounter Department of Sherron Whelan Mammogram Radiology in [facility] Cristhian SimmonsBadin, [place] P.A. [address] [place] [phone] Social History Tobacco Use Types Packs/Day Years [...] More than 4 times per year 05/04/2022 latter day services? Do you belong to any clubs [...] at Date Recorded Female 05/03/2022 7:07 PM COLOR WEIGHER documented as of this encounter Medications at [...] Appointment Laboratory Medicine Rusty Vee M.D. [address] [place] [phone] 06/22/2022 Diagnostic Pulmonary Medicine Rusty Vee M.D. [address] [place] [phone] 06/22/2022 Diagnostic Pulmonary Medicine Rusty Vee M.D. [address] [place] [phone] 06/22/2022 Appointment Radiology Rusty Vee M.D. [address] [place] [phone] 06/23/2022 Clinical Communication Admitting/Central Scheduling 06/28/2022 Appointment Pulmonary Medicine Rusty Vee M.D. [address] [place] [phone] 06/28/2022 Appointment Pulmonary Medicine Rusty Vee M.D. [address] [place] [phone] documented as of this encounter Procedures Procedure Name Priority Date/Time Associated Comments Diagnosis BI BREAST DIAGNOSTIC RAD - Routine 08/01/2019 2:12 Abnormal Res ults for LEFT WITH (most inpatients PM COLOR WEIGHER Mammogram this proced ure TOMOSYNTHESIS and all are in the outpatients) results section. documented in this encounter Results BI Breast Diagnostic Left with Tomosynthesis (08/01/2019 2:12 PM COLOR WEIGHER) Anatomical Region Laterality Modality Breast, Breast Imaging RST LOS, Breast Imaging ARZ LOS, Amanda st Left Mammography Imaging FLA LOS Specimen (Source) Anatomical Collection Method Collection Time Re ceived Time Location / / Volume Laterality 08/01/2019 2:43 PM COLOR WEIGHER Impressions 08/01/2019 2:45 PM COLOR WEIGHER No mammographic findings of malignancy. RECOMMENDATION: ??Annual Screening Mammo gram ASSESSMENT: ??BI-RADS: 1: Negative. Narrative 08/01/2019 2:45 PM COLOR WEIGHER EXAM: ??BI BREAST DIAGNOSTIC LEFT WITH TOMOSYNTHESIS [...] no suspicious morphology or distribution. Procedure Note Virgiilo Cheatham M.D. - 08/01/2019Formatt ing of this [...] am ASSESSMENT: BI-RADS: 1: Negative. Sherron Whelan P.A.-C., P.AMichael IMG BI PROCEDURES documented in this encounter Visit Diagnoses Diagnosis Abnormal Mammogram documented in this encounter Care Teams Advertising Copywriter Relationship Specialty Start Date End Date Luther, Jacki E, P.A.-C. PCP - General Family Medicine 05/24/18 09/24/19 documented as of this encounter
--- OUTSIDE RECORDS SUMMARY | 2022-05-25 20:58 | XMS_ITS | Encounter Summary ---
:1975 Author Organization [facility] Address [address] [place] [address] Care Team Providers Name Role Phone Jacki Luther P.A.-C. Primary Care Provider Reason for Visit Reason Onset Date Comments UVB restart 06/18/2019 Encounter Details Date Type Department Care Team Description 06/18/2019 Clinical Communication Department of Jus Foley, UVB restart Dermatology in [place], [place] [address] [place] [phone] Social History Tobacco Use Types Packs/Day Years [...] or relatives? How often do you attend hinduism or More than 4 times per year 05/04/2022 oriental orthodox services? Do you belong to any clubs or Yes 05/04/2022 organizations such as hinduism groups, unions, fraternal or athletic groups, or [...] at Date Recorded Female 05/03/2022 7:07 PM BUTTON SEWER documented as of this encounter Miscellaneous Notes Telephone Encounter - Amalia Riley L.P.N. - 06/18/2019 8:[address] Foley I contacted [employer] @ [phone] to renew patients UVB narrowband home unit. [...] patient has restarted the treatment as Dr. Foley would like to see the patient 2 months after restart. Mom is agreeable to the plan. ON SEWER documented in this encounter Plan of Treatment Upcoming Encounters Date Type Specialty Care Team Description 06/22/2022 Appointment Laboratory Medicine Rusty Vee M.D. [address] [place] [phone] 06/22/2022 Diagnostic Pulmonary Medicine Rusty Vee M.D. [address] [place] [phone] 06/22/2022 Diagnostic Pulmonary Medicine Rusty Vee M.D. [address] [place] [phone] 06/22/2022 Appointment Radiology Rusty Vee M.D. [address] [place] [phone] 06/23/2022 Clinical Communication Admitting/Central Scheduling 06/28/2022 Appointment Pulmonary Medicine Rusty Vee M.D. [address] [place] [phone] 06/28/2022 Appointment Pulmonary Medicine Rusty Vee M.D. [address] [place] [phone] documented as of this encounter Visit Diagnoses Not on filedocumented in this encounter Care Teams Entry Specialists Relationship Specialty Start Date End Date Jacki Luther P.A.-C. PCP - General Family Medicine 05/24/18 09/24/19 documented as of this encounter
--- OUTSIDE RECORDS SUMMARY | 2022-05-25 20:58 | XMS_ITS | Encounter Summary ---
:1975 Author Organization [facility] Address [address] [place] [address] Care Team Providers Name Role Phone Jacki [...] at Date Recorded Female 05/03/2022 7:07 PM MICROSOFT SYSTEMS ENGINEER documented as of this encounter Plan of Treatment Upcoming Encounters Date Type Specialty Care Team Description 06/22/2022 Appointment Laboratory Medicine Rusty Vee M.D. [address] [place] [phone] 06/22/2022 Diagnostic Pulmonary Medicine Rusty Vee M.D. [address] [place] [phone] 06/22/2022 Diagnostic Pulmonary Medicine Rusty Vee M.D. [address] [place] [phone] 06/22/2022 Appointment Radiology Rusty Vee M.D. [address] [place] [phone] 06/23/2022 Clinical Communication Admitting/Central Scheduling 06/28/2022 Appointment Pulmonary Medicine Rusty Vee M.D. [address] [place] [phone] 06/28/2022 Appointment Pulmonary Rusty Mattson M.D. [address] [place] [phone] documented as of this encounter Procedures Procedure Name Priority Date/Time Associated Comments Diagnosis DERMATOLOGY IMAGE Routine 08/13/2019 2:59 PM Resu lts for this EXAM MICROSOFT SYSTEMS ENGINEER procedure are i n the results section. documented in this encounter Results [facility]-Dermatology Image Exam (08/13/2019 2:59 PM MICROSOFT SYSTEMS ENGINEER) Specimen (Source) Anatomical Collection Method Collection Time Re ceived Time Location / / Volume Laterality 08/13/2019 2:56 PM MICROSOFT SYSTEMS ENGINEER Narrative [facility] - 08/13/2019 2:59 PM MICROSOFT SYSTEMS ENGINEER This order has been created and auto-finalized [...] on filedocumented in this encounter Care Teams Appellate Law Clerk Relationship Specialty Start Date End Date Jacki Luther P.A.-C. PCP - General Family Medicine 05/24/18 09/24/19 documented as of this encounter
--- OUTSIDE RECORDS SUMMARY | 2022-05-25 20:59 | XMS_ITS | Encounter Summary ---
:1975 Author Organization [facility] Address [address] [place] [address] Care Team Providers Name Role Phone Jacki Luther P.A.-C. Primary Care Provider [phone] Reason for Referral Outpatient (Routine) - Closed Specialty Diagnoses / Procedures Referred By Referred To Contact Contact Hematology / Diagnoses Monitoring For Therapeutic Drug Therapy Cleaning Supervisor (Current) Anticoagulant Treatment Anticoagulant Therapy Jacki Luther Anticoagulation [place] [address] [place] [address] Referral ID Status Reason Start Date Expiration Date Visits V isits Requested Authorized [id number] Closed Specialty 12/14/2018 12/14/2019 1 1 Services Required Encounter Details Date Type Department Care Team Description 12/13/2018 Orders Only Department of Renetta Leal Monitoring For Therapeutic Drug Therapy (Primary Dx); Anticoagulation in [facility] Term Anticoagulant Treatment; [place], [place] Anticoagulant Therapy [address] [place] [phone] Social History Tobacco Use Types Packs/Day Years [...] More than 4 times per year 05/04/2022 anabaptist services? Do you belong to any clubs or Yes 05/04/2022 organizations such as latter-day groups, unions, fraMiro or athletic groups, or school groups? 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 [address] [place] [phone] 06/22/2022 Diagnostic Pulmonary Medicine Rusty Vee M.D. [address] [place] [phone] 06/22/2022 Diagnostic Pulmonary Medicine Rusty Vee M.D. [address] [place] [phone] 06/22/2022 Appointment Radiology Rusty Vee M.D. [address] [place] [phone] 06/23/2022 Clinical Communication Admitting/Central Scheduling 06/28/2022 Appointment Pulmonary Medicine Rusty Vee M.D. [address] [place] [phone] 06/28/2022 Appointment Pulmonary Medicine Rusty Vee M.D. [address] [place] [phone] Scheduled Referrals Name Type Priority Associated Diagnoses Order S chedule Anticoagulation Outpatient Routine Monitoring For Ordered: monitoring consult Referral Therapeutic Drug 12/14 (clinic) Therapy Halfway Anticoagulant Treatment Anticoagulant Therapy documented as of this encounter Visit Diagnoses Diagnosis Monitoring For Therapeutic Drug Therapy - Primary Halfway (Current) Anticoagulant Treatm ent Anticoagulant Therapy documented in this encounter Care Teams Concrete Layer Relationship Specialty Start Date End Date Jacki Luther P.A.-C. PCP - General Family Medicine 05/24/18 09/24/19 documented as of this encounter
--- OUTSIDE RECORDS SUMMARY | 2022-05-25 20:59 | XMS_ITS | Encounter Summary ---
:1975 Author Organization [facility] Address [address] [place] [address] Care Team Providers Name Role Phone Jacki Luther P.A.-C. Primary Care Provider Encounter Details Date Type Department Care Team Description 12/26/2018 Orders Only [facility] MNT Jacki Luther, P.A.-C. [address] [place] [address] (Wo rk) Social History Tobacco Use Types [...] or relatives? How often do you attend amish or More than 4 times per year 05/04/2022 pentecostal services? 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 [address] [place] [phone] 06/22/2022 Diagnostic Pulmonary Medicine Rusty Vee M.D. [address] [place] [phone] 06/22/2022 Diagnostic Pulmonary Medicine Rusty Vee M.D. [address] [place] [phone] 06/22/2022 Appointment Radiology Rusty Vee M.D. [address] [place] [phone] 06/23/2022 Clinical Communication Admitting/Central Scheduling 06/28/2022 Appointment Pulmonary Medicine Rusty Vee M.D. [address] [place] [phone] 06/28/2022 Appointment Pulmonary Medicine Rusty Vee M.D. [address] [place] [phone] documented as of this encounter Visit Diagnoses Not on filedocumented in this encounter Care Teams Cyber Incident Handler Relationship Specialty Start Date End Date Jacki Luther P.A.-C. PCP - General Family Medicine 05/24/18 09/24/19 documented as of this encounter
--- OUTSIDE RECORDS SUMMARY | 2022-05-25 20:59 | XMS_ITS | Encounter Summary ---
:1975 Author Organization [facility] Address [address] [place] [address] Care Team Providers Name Role Phone Jacki Luther P.A.-C. Primary Care Provider Reason for Visit Reason Comments Eye Exam Appointment Request (Routine) - Closed Specialty Diagnoses / Procedures Referred By Contact Refer red To Contact Ophthalmology Referral ID Status Reason Start Date Expiration Date Visits Requ ested Visits Authorized [id number] Closed 09/26/2018 09/26/2019 1 Encounter Details Date Type Department Care Team Description 10/15/2018 Comprehensive Visit Department of Marsha Mcmullenop ia Right (Primary Dx); Ophthalmology in [place] O.D. 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 She may try using +1.00-+1.50 [id number] readers to see if it helps with near work. Re-evaluate health bautista a full exam in 2 years. documented in this encounter Plan of Treatment Upcoming Encounters Date Type Specialty Care Team Description 06/22/2022 Appointment Laboratory Medicine Rusty Vee M.D. [address] [place] [address] 06/22/2022 Diagnostic Pulmonary Medicine Rusty Vee M.D. 200 [place] [address] 06/22/2022 Diagnostic Pulmonary Medicine Rusty Vee M.D. 200 [place] [address] 06/22/2022 Appointment Radiology Rusty Vee M.D. [address] [place] [address] 06/23/2022 Clinical Communication Admitting/Central Scheduling 06/28/2022 Appointment Pulmonary Medicine Rusty Vee M.D. [address] [place] [address] 06/28/2022 Appointment Pulmonary Medicine Rusty Vee M.D. [address] [place] [address] documented as of this encounter Visit Diagnoses Diagnosis Hyperopia Right - Primary Myopia Left Astigmatism Regular Bilateral Amblyopia Refractive Left documented in this encounter Care Teams Scrap Hooker Relationship Specialty Start Date End Date Jacki Luther P.A.-C. PCP - General Family Medicine 05/24/18 09/24/19 documented as of this encounter
--- OUTSIDE RECORDS SUMMARY | 2022-05-25 20:59 | XMS_ITS | Encounter Summary ---
:1975 Author Organization [facility] Address [address] [place] [address] Care Team Providers Name Role Phone Jacki Luther P.A.-C. 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 Please call her at [phone].Thanks! Telephone Encounter - Lindsay Godinez - 02/12/2019 3:17 PM CDT Patients mom is calling to get a new code to put into her UV light for her psoriasis. Please reach out to her at [phone]. documented in this encounter Plan of Treatment Upcoming Encounters Date Type Specialty Care Team Description 06/22/2022 Appointment Laboratory Medicine Rusty Vee M.D. 200 [place] [phone] 06/22/2022 Diagnostic Pulmonary Medicine Rusty Vee M.D. 200 [place] [phone] 06/22/2022 Diagnostic Pulmonary Medicine Rusty Vee M.D. 200 [place] [address] 06/22/2022 Appointment Radiology Rusty Vee M.D. [address] [place] [phone] 06/23/2022 Clinical Communication Admitting/Central Scheduling 06/28/2022 Appointment Pulmonary Medicine Rusty Vee M.D. [address] [place] [phone] 06/28/2022 Appointment Pulmonary Medicine Rusty Vee M.D. [address] [place] [phone] documented as of this encounter Visit Diagnoses Not on filedocumented in this encounter Care Teams Bottle Selector Relationship Specialty Start Date End Date Jacki Luther P.A.-C. PCP - General Family Medicine 05/24/18 09/24/19 documented as of this encounter
--- OUTSIDE RECORDS SUMMARY | 2022-05-25 20:59 | XMS_ITS | Encounter Summary ---
:[address] [facility] Address [address] [place] [address] Care Team Providers Name Role Phone Jacki Luther P.A.-C. Primary Care Provider [phone] Reason for Visit Reason Comments Med Refill Encounter Details Date Type Department Care Team Description 05/21/2019 Refill Department of Dermatology in Jus Lawton M.D. Med Refill [facility] chidi [address] [place] [phone] [place], [place] [address] [phone] Social History Tobacco Use Types Packs/Day Years [...] or relatives? How often do you attend baptist or More than 4 times per year 05/04/2022 mu-ism services? Do you belong to any clubs or Yes 05/04/2022 organizations such as baptist groups, unions, fraternal or athletic groups, or [...] place to sleep or slept in a fci (including now)? 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 [address] [place] [phone] 06/22/2022 Diagnostic Pulmonary Medicine Rusty Vee M.D. [address] [place] [phone] 06/22/2022 Diagnostic Pulmonary Medicine Rusty Vee M.D. [address] [place] [phone] 06/22/2022 Appointment Radiology Rusty Vee M.D. [address] [place] [phone] 06/23/2022 Clinical Communication Admitting/Central Scheduling 06/28/2022 Appointment Pulmonary Medicine Rusty Vee M.D. [address] [place] [phone] 06/28/2022 Appointment Pulmonary Medicine Rusty Vee M.D. [address] [place] [phone] documented as of this encounter Visit Diagnoses Not on filedocumented in this encounter Care Teams Radiology Equipment Servicer Relationship Specialty Start Date End Date Jacki Luther P.A.-C. PCP - General Family Medicine 05/24/18 09/24/19 documented as of this encounter
--- OUTSIDE RECORDS SUMMARY | 2022-05-25 20:59 | XMS_ITS | Encounter Summary ---
:1975 Author Organization [facility] Address [address] [place] [address] Care Team Providers Name Role Phone Jacki Luther P.A.-C. Primary Care Provider [phone] Encounter Details Date Type Department Care Team Description 12/25/2018 Anticoagulation Visit Department of Marina Luther Hypercoagulation Syndrome (HCC); Anticoagulation in [place] For Therapeutic Drug Therapy; Seth Car P.A.-C. 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 - 12/25/2018 2:30 PM CDT Warfarin Maintenance Nursing Protocol Goal Range 2.0-3.0 (version approved 02/24/17) Visit Type: Patient presents for Msda-ag-Jmut visit in Anticoagulation Service. Primary reason for [...] Appointment Laboratory Medicine Rusty Vee M.D. 200 [place] [address] 06/22/2022 Diagnostic Pulmonary Medicine Rusty Vee M.D. [address] [place] [phone] 06/22/2022 Diagnostic Pulmonary Medicine Rusty Vee M.D. [address] [place] [phone] 06/22/2022 Appointment Radiology Rusty Vee M.D. [address] [place] [phone] 06/23/2022 Clinical Communication Admitting/Central Scheduling 06/28/2022 Appointment Pulmonary Medicine Rusty Vee M.D. [address] [place] [address] 06/28/2022 Appointment Pulmonary Medicine Rusty Vee M.D. [address] [place] [address] documented as of this encounter Procedures Procedure Name Priority Date/Time Associated Diagnosis Comme nts INR, POCT, B Routine 12/25/2018 2:40 PM Results f or this CDT procedure are i n the results section . documented in this encounter Results INR, POCT (12/25/2018 2:40 PM CDT) athologist Signature INR, POCT, B 2.3 12/25/2018 2:40 PM CDT Comment: ----ADDITIONAL INFORMATION---- Standard intensity warfarin therapeutic range: 2.0 to 3.0 ?? High intensity warfarin therapeutic rang e: 2.5 to 3.5 Specimen Anatomical Collection Method Collection Time Receive d Time (Source) Location / / Volume Laterality 12/25/2018 2:40 PM 9 2:42 CDT PM CDT Generic [facility] POCT ORDERABLES - DEVICE Performing Organization Address City/State/ZIP Code Phon e Number [facility]- [address] [place] [address] [facility] documented in this encounter Visit Diagnoses Diagnosis Primary Hypercoagulation Syndrome (HCC) Monitoring For Therapeutic Drug Therapy Device Engineer (Current) Anticoagulant Treatm ent Anticoagulant Therapy documented in this encounter Care Teams Digital Media Producer Relationship Specialty Start Date End Date Jacki Luther P.A.-C. PCP - General Family Medicine 05/24/18 09/24/19 documented as of this encounter
--- OUTSIDE RECORDS SUMMARY | 2022-05-25 20:59 | XMS_ITS | Encounter Summary ---
:1975 Author Organization [facility] Address [address] [place] [address] Care Team Providers Name Role Phone Jacki Luther P.A.-C. Primary Care Provider [phone] Encounter Details Date Type Department Care Team Description 04/02/2019 Anticoagulation Visit Department of Marina Luther Hypercoagulation Syndrome (HCC); Anticoagulation in [place] For Therapeutic Drug Therapy; Seth Car P.A.-C. [facility] Anticoagulant Treatment; [address] Anticoagulant Therapy [address] [place] [address] [place] [phone] [place], [place] [phone] [address] Social History Tobacco Use Types Packs/Day Years [...] or relatives? How often do you attend caodaism or More than 4 times per year 05/04/2022 judaism services? 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 - 04/02/2019 2:30 PM CDT Warfarin Maintenance Nursing Protocol Goal Range 2.0-3.0 (version approved 02/24/17) Visit Type: Patient presents for Mmfs-vu-Rrdd visit in Anticoagulation Service. Primary reason for [...] Laboratory Medicine Rusty Vee M.D. [address] [place] [address] 06/22/2022 Diagnostic Pulmonary Medicine Rusty Vee M.D. [address] [place] [phone] 06/22/2022 Diagnostic Pulmonary Medicine Rusty Vee M.D. [address] [place] [address] 06/22/2022 Appointment Radiology Rusty Vee M.D. [address] [place] [address] 06/23/2022 Clinical Communication Admitting/Central Scheduling 06/28/2022 Appointment Pulmonary Medicine Rusty Vee M.D. [address] [place] [address] 06/28/2022 Appointment Pulmonary Medicine Rusty Vee M.D. [address] [place] [address] documented as of this encounter Procedures Procedure Name Priority Date/Time Associated Diagnosis Comme nts INR, POCT, B Routine 04/02/2019 2:31 PM Results f or this CDT procedure are i n the results section . documented in this encounter Results INR, POCT (04/02/2019 2:31 PM CDT) athologist Signature INR, POCT, B 2.2 04/02/2019 [...] POCT ORDERABLES - DEVICE Performing Organization Address City/State/[facility] Code Phon e Number [facility]- [address] [place] [address] [facility] [address] [address] documented in this encounter Visit Diagnoses Diagnosis Primary Hypercoagulation Syndrome (HCC) Monitoring For Therapeutic Drug Therapy Fdc (Current) Anticoagulant Treatm ent Anticoagulant Therapy documented in this encounter Care Teams Director Of Research Center Relationship Specialty Start Date End Date Jacki Luther P.A.-C. PCP - General Family Medicine 05/24/18 09/24/19 documented as of this encounter
--- OUTSIDE RECORDS SUMMARY | 2022-05-25 20:59 | XMS_ITS | Encounter Summary ---
:1975 Author Organization [facility] Address [address] [place] [address] Care Team Providers Name Role Phone Jacki Luther P.A.-C. Primary Care Provider [phone] Reason for Visit Reason Comments Med Refill Encounter Details Date Type Department Care Team Description 04/15/2019 Refill Department of Dermatology in Jus Lawton M.D. Med Refill [facility] botany technician [address] [place] [phone] [place], [place] [address] [phone] Social History Tobacco Use Types Packs/Day Years [...] More than 4 times per year 05/04/2022 restorationist services? 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 [address] [place] [phone] 06/22/2022 Diagnostic Pulmonary Medicine Rusty Vee M.D. [address] [place] [phone] 06/22/2022 Diagnostic Pulmonary Medicine Rusty Vee M.D. [address] [place] [phone] 06/22/2022 Appointment Radiology Rusty Vee M.D. [address] [place] [phone] 06/23/2022 Clinical Communication Admitting/Central Scheduling 06/28/2022 Appointment Pulmonary Medicine Rusty Vee M.D. [address] [place] [phone] 06/28/2022 Appointment Pulmonary Medicine Rusty Vee M.D. [address] [place] [phone] documented as of this encounter Visit Diagnoses Not on filedocumented in this encounter Care Teams Foiling Machine Adjuster Relationship Specialty Start Date End Date Jacki Luther P.A.-C. PCP - General Family Medicine 05/24/18 09/24/19 documented as of this encounter
--- OUTSIDE RECORDS SUMMARY | 2022-05-25 20:59 | XMS_ITS | Encounter Summary ---
:1975 Author Organization [facility] Address [address] [place] [address] Care Team Providers Name Role Phone Jacki Luther P.A.-C. Primary Care Provider Reason for Visit Reason Comments Med Refill Encounter Details Date Type Department Care Team Description 01/30/2019 Refill Department of Family Medicine, Iris Luther, Med Refill [facility], in [place], [place] [address] [place] [address] [place], [place] [address] [phone] Social History Tobacco Use Types Packs/Day Years [...] More than 4 times per year 05/04/2022 confucianism services? 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 [address] [place] [phone] 06/22/2022 Diagnostic Pulmonary Medicine Rusty Vee M.D. [address] [place] [phone] 06/22/2022 Diagnostic Pulmonary Medicine Rusty Vee M.D. [address] [place] [phone] 06/22/2022 Appointment Radiology Rusty Vee M.D. [address] [place] [phone] 06/23/2022 Clinical Communication Admitting/Central Scheduling 06/28/2022 Appointment Pulmonary Medicine Rusty Vee M.D. [address] [place] [phone] 06/28/2022 Appointment Pulmonary Medicine Rusty Vee M.D. [address] [place] [phone] documented as of this encounter Visit Diagnoses Diagnosis Primary Hypercoagulation Syndrome (HCC) documented in this encounter Care Teams Circulating Process Inspector Relationship Specialty Start Date End Date Jacki Luther P.A.-C. PCP - General Family Medicine 05/24/18 09/24/19 documented as of this encounter
--- OUTSIDE RECORDS SUMMARY | 2022-05-25 20:59 | XMS_ITS | Encounter Summary ---
:1975 Author Organization [facility] Address [address] [place] [address] Care Team Providers Name Role Phone Jacki Luther P.A.-C. Primary Care Provider [phone] Encounter Details Date Type Department Care Team Description 10/30/2018 Anticoagulation Visit Department of Marina Luther Hypercoagulation Syndrome (HCC); Anticoagulation in [place] For Therapeutic Drug Therapy; Seth Car P.A.-C. Retail Associate Anticoagulant Treatment [address] [place] [address] [place], [place] [phone] [address] Social History Tobacco Use Types Packs/Day Years [...] at Date Recorded Female 05/03/2022 7:07 PM PLANE TENDER documented as of this encounter Progress Notes Nichole Bowers R.N. - 10/30/2018 2:30 PM CDT Warfarin Maintenance Nursing Protocol Goal Range 2.0-3.0 (version approved 02/24/17) Visit Type: Patient presents for Lqlk-wj-Bzfh visit in Anticoagulation Service. Primary reason for [...] Appointment Laboratory Medicine Rusty Vee M.D. [address] [place] [phone] 06/22/2022 Diagnostic Pulmonary Medicine Rusty Vee M.D. [address] [place] [phone] 06/22/2022 Diagnostic Pulmonary Medicine Rusty Vee M.D. [address] [place] [phone] 06/22/2022 Appointment Radiology Rusty Vee M.D. [address] [place] [phone] 06/23/2022 Clinical Communication Admitting/Central Scheduling 06/28/2022 Appointment Pulmonary Medicine Rusty Vee M.D. [address] [place] [address] 06/28/2022 Appointment Pulmonary Medicine Rusty Vee M.D. [address] [place] [address] documented as of this encounter Procedures Procedure Name Priority Date/Time Associated Diagnosis Comme nts INR, POCT, B Routine 10/30/2018 2:35 PM Results f or this CDT procedure are i n the results section . documented in this encounter Results INR, POCT (10/30/2018 2:35 PM CDT) P athologist Signature INR, POCT, B 2.1 10/30/2018 [facility] 2:35 PM CDT [email or web address] Comment: ----ADDITIONAL INFORMATION---- Standard intensity warfarin therapeutic range: 2.0 to 3.0 ?? High intensity warfarin therapeutic rang e: 2.5 to 3.5 Specimen Anatomical Collection Method Collection Time Receive d Time (Source) Location / / Volume Laterality 10/30/2018 2:35 PM 9 2:37 CDT PM CDT Generic [facility] POCT ORDERABLES - DEVICE Performing Organization Address City/State/ZIP Code Phon e Number [facility]- [id number] [place] [address] [facility] documented in this encounter Visit Diagnoses Diagnosis Primary Hypercoagulation Syndrome (HCC) Monitoring For Therapeutic Drug Therapy Halfway (Current) Anticoagulant Treatm ent documented in this encounter Care Teams Hogshead Hand Relationship Specialty Start Date End Date Jacki Luther P.A.-C. PCP - General Family Medicine 05/24/18 09/24/19 documented as of this encounter
--- OUTSIDE RECORDS SUMMARY | 2022-05-25 20:59 | XMS_ITS | Encounter Summary ---
:1975 Author Organization [facility] Address [address] [place] [address] Care Team Providers Name Role Phone Jacki Luther P.A.-C. Primary Care Provider [phone] Encounter Details Date Type Department Care Team Description 06/17/2019 Anticoagulation Visit Department of Marina Luther Hypercoagulation Syndrome (HCC); Anticoagulation in [place] For Therapeutic Drug Therapy; Seth Car P.A.-C. [facility] Anticoagulant Treatment; [address] Anticoagulant Therapy [address] [place] [address] [place] [address] [place], [place] [phone] [address] Social History Tobacco Use Types Packs/Day Years [...] at Date Recorded Female 05/03/2022 7:07 PM ENGLISH AS A SECOND LANGUAGE TEACHER documented as of this encounter Progress Notes Nichole Bowers R.N. - 06/17/2019 2:45 PM CST Warfarin Maintenance Nursing Protocol Goal Range 2.0-3.0 (version approved 02/24/17) Visit Type: Patient presents for Ypgt-bn-Seao visit in Anticoagulation Service. Primary reason for [...] agreeable to the plan of care yes ISH AS A SECOND LANGUAGE TEACHER documented in this encounter Plan of Treatment Upcoming Encounters Date Type Specialty Care Team Description 06/22/2022 Appointment Laboratory Medicine Rusty Vee M.D. [address] [place] [phone] 06/22/2022 Diagnostic Pulmonary Medicine Rusty Vee M.D. [address] [place] [phone] 06/22/2022 Diagnostic Pulmonary Medicine Rusty Vee M.D. [address] [place] [phone] 06/22/2022 Appointment Radiology Rusty Vee M.D. [address] [place] [phone] 06/23/2022 Clinical Communication Admitting/Central Scheduling 06/28/2022 Appointment Pulmonary Medicine Rusty Vee M.D. [address] [place] [address] 06/28/2022 Appointment Pulmonary Medicine Rusty Vee M.D. [address] [place] [address] documented as of this encounter Procedures Procedure Name Priority Date/Time Associated Diagnosis Comme nts INR, POCT, B Routine 06/17/2019 2:54 PM Results f or this ENGLISH AS A SECOND LANGUAGE TEACHER procedure are i n the results section . documented in this encounter Results INR, POCT (06/17/2019 2:54 PM ENGLISH AS A SECOND LANGUAGE TEACHER) P athologist Signature INR, POCT, B 2.7 06/17/2019 CNFL 2:54 PM ENGLISH AS A SECOND LANGUAGE TEACHER Comment: ----ADDITIONAL INFORMATION---- Standard intensity warfarin therapeutic range: 2.0 to 3.0 ?? High intensity warfarin therapeutic rang e: 2.5 to 3.5 Specimen Anatomical Collection Method Collection Time Receive d Time (Source) Location / / Volume Laterality 06/17/2019 2:54 PM 9 2:55 ENGLISH AS A SECOND LANGUAGE TEACHER PM ENGLISH AS A SECOND LANGUAGE TEACHER Generic [facility] POCT ORDERABLES - DEVICE Performing Organization Address City/State/ZIP Code Phon e Number [facility]- [address] [place] [address] [facility] [place] [address] [address] documented in this encounter Visit Diagnoses Diagnosis Primary Hypercoagulation Syndrome (HCC) Monitoring For Therapeutic Drug Therapy Adjunct Physical Education Instructor (Current) Anticoagulant Treatm ent Anticoagulant Therapy documented in this encounter Care Teams Wash Mill Operator Relationship Specialty Start Date End Date Jacki Luther P.A.-C. PCP - General Family Medicine 05/24/18 09/24/19 documented as of this encounter
--- OUTSIDE RECORDS SUMMARY | 2022-05-25 20:59 | XMS_ITS | Encounter Summary ---
:1975 Author Organization [facility] Address [address] [place] [address] Care Team Providers Name Role Phone Jacki Luther P.A.-C. Primary Care Provider Reason for Visit Reason Comments Psoriasis Outpatient (Routine) - Closed Specialty Diagnoses / Procedures Referred By Contact Refer red To Contact Dermatology Jus Foley M.D . [facility] Region [address] [place] [address] Referral ID Status Reason Start Date Expiration Date Visits Requ ested Visits Authorized [id number] Closed 03/04/2019 03/03/2020 1 1 Encounter Details Date Type Department Care Team Description 06/17/2019 Office Visit Department of Jus Foley, Psoriasis (Primary Dx) Dermatology in [place], [place] [address] [phone] Social History Tobacco Use Types Packs/Day Years [...] or relatives? How often do you attend synagogue or More than 4 times per year 05/04/2022 yazdanism services? Do you belong to any clubs or Yes 05/04/2022 organizations such as synagogue groups, unions, fraBabycare or athletic groups, or school groups? How [...] at Date Recorded Female 05/03/2022 7:07 PM CANDY DECORATOR documented as of this encounter Progress Notes Jus Foley M.D. - 06/17/2019 3:15 PM CST CHIEF COMPLAINT Recheck psoriasis HISTORY OF THE PRESENT ILLNESS Hue [place] is a pleasant 44 y.o. [place] [employer] worker who has Down syndrome but lives independently. She is??accompanied by her mother and presents for a recheck of psoriasis. During my initial visit with her on 04/23/18, she reported that she initially experienced psoriasis eruptions at the age of 12. She was treating the psoriasis with qaui-kwg-dekvwqy Oxipor 5% coal-tar lotion and symptoms were [...] I recommended narrow band UVB phototherapy at [facility]. The patientand her mother were interested in [...] I recommended narrow band UVB phototherapy at [facility]. The patient and her mother declined this [...] patient recently returned from a trip to [place] where she received a significant amount of [...] Electronically Signed: simeon Morgan. 06/17/2019. 3:42 PM CANDY DECORATOR. IJus M.D., personally performed the services described in this documentation. All medical record entries made by the scribe were at my direction and in my presence. I have reviewed the chart and discharge instructions (if applicable) and agree that the record reflects my personal performance and is accurate and complete. Jus Foley M.D. . 06/17/2019. 4:47 PM CANDY DECORATOR. Y DECORATOR documented in this encounter Plan of Treatment Upcoming Encounters Date Type Specialty Care Team Description 06/22/2022 Appointment Laboratory Medicine Rusty Vee M.D. 200 [place] [address] 06/22/2022 Diagnostic Pulmonary Medicine Rusty Vee M.D. [address] [place] [phone] 06/22/2022 Diagnostic Pulmonary Medicine Rusty Vee M.D. [address] [place] [phone] 06/22/2022 Appointment Radiology Rusty Vee M.D. [address] [place] [phone] 06/23/2022 Clinical Communication Admitting/Central Scheduling 06/28/2022 Appointment Pulmonary Medicine Rusty Vee M.D. [address] [place] [phone] 06/28/2022 Appointment Pulmonary Medicine Rusty Vee M.D. [address] [place] [phone] documented as of this encounter Visit Diagnoses Diagnosis Psoriasis - Primary documented in this encounter Care Teams Pipe Blanks Cut Off Saw Operator Relationship Specialty Start Date End Date Jacki Luther P.A.-C. PCP - General Family Medicine 05/24/18 09/24/19 documented as of this encounter
--- OUTSIDE RECORDS SUMMARY | 2022-05-25 20:59 | XMS_ITS | Encounter Summary ---
:1975 Author Organization [facility] Address [address] [place] [address] Care Team Providers Name Role Phone Jacki Luther P.A.-C. Primary Care Provider [phone] Encounter Details Date Type Department Care Team Description 11/27/2018 Anticoagulation Visit Department of Marina Luther Hypercoagulation Syndrome (HCC); Anticoagulation in [place] For Therapeutic Drug Therapy; Seth Car P.A.-C. [place] Anticoagulant Treatment [address] [place] [address] [place], [place] [phone] Social History Tobacco Use Types Packs/Day Years [...] More than 4 times per year 05/04/2022 orthodoxy services? Do you belong to any clubs [...] at Date Recorded Female 05/03/2022 7:07 PM DIRECTOR OF RESIDENCE LIFE documented as of this encounter Progress Notes Nichole Bowers R.N. - 11/27/2018 2:30 PM CDT Warfarin Maintenance Nursing Protocol Goal Range 2.0-3.0 (version approved 02/24/17) Visit Type: Patient presents for Bnrq-vf-Mrum visit in Anticoagulation Service. Primary reason for [...] Laboratory Medicine Rusty Vee M.D. [address] [place] [phone] 06/22/2022 Diagnostic Pulmonary Medicine Rusty Vee M.D. [address] [place] [phone] 06/22/2022 Diagnostic Pulmonary Medicine Rusty Vee M.D. [address] [place] [phone] 06/22/2022 Appointment Radiology Rusty Vee M.D. [address] [place] [phone] 06/23/2022 Clinical Communication Admitting/Central Scheduling 06/28/2022 Appointment Pulmonary Medicine Rusty Vee M.D. [address] [place] [address] 06/28/2022 Appointment Pulmonary Medicine Rusty Vee M.D. [address] [place] [address] documented as of this encounter Procedures Procedure [...] Code Phon e Number [facility]- [address] [place] [address] [facility] documented in this encounter Visit Diagnoses Diagnosis Primary Hypercoagulation Syndrome (HCC) Monitoring For Therapeutic Drug Therapy Alf (Current) Anticoagulant Treatm ent documented in this encounter Care Teams Marine Equipment Sales Engineer Relationship Specialty Start Date End Date Jacki Luther P.A.-C. PCP - General Family Medicine 05/24/18 09/24/19 documented as of this encounter
--- OUTSIDE RECORDS SUMMARY | 2022-05-25 20:59 | XMS_ITS | Encounter Summary ---
:1975 Author Organization [facility] Address [address] [place] [address] Care Team Providers Name Role Phone Jacki Luther P.A.-C. Primary Care Provider [phone] Encounter Details Date Type Department Care Team Description 05/21/2019 Anticoagulation Visit Department of Marina Luther Hypercoagulation Syndrome (HCC); Anticoagulation in [place] For Therapeutic Drug Therapy; Seth Car P.A.-C. [facility] Anticoagulant Treatment; [address] Anticoagulant Therapy [address] [place] [address] [place] [phone] [place], [place] [phone] Social History Tobacco Use Types Packs/Day Years [...] or relatives? How often do you attend taoist or More than 4 times per year 05/04/2022 adventist services? Do you belong to any clubs or Yes 05/04/2022 organizations such as taoist groups, unions, fraternal or athletic groups, or [...] at Date Recorded Female 05/03/2022 7:07 PM ASSESSMENT SPECIALIST documented as of this encounter Progress Notes Nichole Bowers R.N. - 05/21/2019 2:30 PM CST Warfarin Maintenance Nursing Protocol Goal Range 2.0-3.0 (version approved 02/24/17) Visit Type: Patient presents for Zont-lf-Lwda visit in Anticoagulation Service. Primary reason for [...] agreeable to the plan of care yes SSMENT SPECIALIST documented in this encounter Plan of Treatment Upcoming Encounters Date Type Specialty Care Team Description 06/22/2022 Appointment Laboratory Medicine Rusty Vee M.D. [address] [place] [phone] 06/22/2022 Diagnostic Pulmonary Medicine Rusty Vee M.D. [address] [place] [phone] 06/22/2022 Diagnostic Pulmonary Medicine Rusty Vee M.D. [address] [place] [phone] 06/22/2022 Appointment Radiology Rusty Vee M.D. [address] [place] [phone] 06/23/2022 Clinical Communication Admitting/Central Scheduling 06/28/2022 Appointment Pulmonary Medicine Rusty Vee M.D. [address] [place] [address] 06/28/2022 Appointment Pulmonary Medicine Rusty Vee M.D. [address] [place] [address] documented as of this encounter Procedures Procedure Name Priority Date/Time Associated Diagnosis Comme nts INR, POCT, B Routine 05/21/2019 2:40 PM Results f or this ASSESSMENT SPECIALIST procedure are i n the results section . documented in this encounter Results INR, POCT (05/21/2019 2:40 PM ASSESSMENT SPECIALIST) P athologist Signature INR, POCT, B 2.1 05/21/2019 CNFL 2:40 PM ASSESSMENT SPECIALIST Comment: ----ADDITIONAL INFORMATION---- Standard intensity warfarin therapeutic range: 2.0 to 3.0 ?? High intensity warfarin therapeutic rang e: 2.5 to 3.5 Specimen Anatomical Collection Method Collection Time Receive d Time (Source) Location / / Volume Laterality 05/21/2019 2:40 PM 9 2:42 ASSESSMENT SPECIALIST PM ASSESSMENT SPECIALIST Generic [facility] POCT ORDERABLES - DEVICE Performing Organization Address City/State/ZIP Code Phon e Number [facility]- [address] [place] [address] [place] [address] System [address] documented in this encounter Visit Diagnoses Diagnosis Primary Hypercoagulation Syndrome (HCC) Monitoring For Therapeutic Drug Therapy Dealer Compliance Representative (Current) Anticoagulant Treatm ent Anticoagulant Therapy documented in this encounter Care Teams Photo Printer Relationship Specialty Start Date End Date Jacki Luther P.A.-C. PCP - General Family Medicine 05/24/18 09/24/19 documented as of this encounter
--- OUTSIDE RECORDS SUMMARY | 2022-05-25 20:59 | XMS_ITS | Encounter Summary ---
:1975 Author Organization [facility] Address [address] [place] [address] Care Team Providers Name Role Phone Jacki Luther P.A.-C. Primary Care Provider [phone] Encounter Details Date Type Department Care [...] or relatives? How often do you attend sikh or More than 4 times per year 05/04/2022 druze services? Do you belong to any clubs or Yes 05/04/2022 organizations such as sikh groups, unions, fraternal or athletic groups, or [...] at Date Recorded Female 05/03/2022 7:07 PM POULTRY RAISER documented as of this encounter Plan of Treatment Upcoming Encounters Date Type Specialty Care Team Description 06/22/2022 Appointment Laboratory Medicine Rusty Vee M.D. [address] [place] [phone] 06/22/2022 Diagnostic Pulmonary Medicine Rusty Vee M.D. [address] [place] [phone] 06/22/2022 Diagnostic Pulmonary Medicine Rusty Vee M.D. [address] [place] [phone] 06/22/2022 Appointment Radiology Rusty Vee M.D. [address] [place] [phone] 06/23/2022 Clinical Communication Admitting/Central Scheduling 06/28/2022 Appointment Pulmonary Medicine Rusty Vee M.D. [address] [place] [phone] 06/28/2022 Appointment Pulmonary Rusty Mattson M.D. [address] [place] [phone] documented as of this encounter Procedures Procedure Name Priority Date/Time Associated Comments Diagnosis DERMATOLOGY IMAGE Routine 06/17/2019 3:45 PM Resu lts for this EXAM POULTRY RAISER procedure are i n the results section. documented in this encounter Results Generalized 500-Dermatology Image Exam (06/17/2019 3:45 PM POULTRY RAISER) Specimen (Source) Anatomical Collection Method Collection Time Re ceived Time Location / / Volume Laterality 06/17/2019 3:45 PM POULTRY RAISER Narrative [facility] - 06/17/2019 3:48 PM POULTRY RAISER This order has been created and auto-finalized [...] on filedocumented in this encounter Care Teams Material Requirements Planning Manager Relationship Specialty Start Date End Date Jacki Luther P.A.-C. PCP - General Family Medicine 05/24/18 09/24/19 documented as of this encounter
--- OUTSIDE RECORDS SUMMARY | 2022-05-25 20:59 | XMS_ITS | Encounter Summary ---
:1975 Author Organization [facility] Address [address] [place] [address] Care Team Providers Name Role Phone Jacki Luther P.A.-C. Primary Care Provider [phone] Encounter Details Date Type Department Care Team Description 03/04/2019 Anticoagulation Visit Department of Hari Luther For Therapeutic Drug Therapy; Anticoagulation in Jacki Larson, Patrol Driver Anticoagulant Treatment; Seth Car P.A.-C. Anticoagulant Therapy; [address] Primary Hypercoagulation Syn drome ([facility]) [address] [place] [address] [place] [address] [place], [place] [phone] Social History Tobacco Use Types Packs/Day Years [...] or relatives? How often do you attend temple or More than 4 times per year 05/04/2022 confucianism services? Do you belong to any clubs or Yes 05/04/2022 organizations such as temple groups, unions, fraternal or athletic groups, or [...] at Date Recorded Female 05/03/2022 7:07 PM SUPPLIER DEVELOPMENT MANAGER documented as of this encounter Progress Notes Nichole Bowers R.N. - 03/04/2019 3:30 PM CDT Warfarin Maintenance Nursing Protocol Goal Range 2.0-3.0 (version approved 02/24/17) Visit Type: Patient presents for Dued-js-Njxx visit in Anticoagulation Service. Primary reason for [...] Appointment Laboratory Medicine Rusty Vee M.D. 200 [place] [address] 06/22/2022 Diagnostic Pulmonary Medicine Rusty Vee M.D. [address] [place] [phone] 06/22/2022 Diagnostic Pulmonary Medicine Rusty Vee M.D. [address] [place] [phone] 06/22/2022 Appointment Radiology Rusty Vee M.D. [address] [place] [phone] 06/23/2022 Clinical Communication Admitting/Central Scheduling 06/28/2022 Appointment Pulmonary Medicine Rusty Vee M.D. [address] [place] [address] 06/28/2022 Appointment Pulmonary Medicine Rusty Vee M.D. [address] [place] [phone] documented as of this encounter Procedures Procedure Name Priority Date/Time Associated Diagnosis Comme nts INR, POCT, B Routine 03/04/2019 3:31 PM Results f or this CDT procedure are i n the results section . documented in this encounter Results INR, POCT (03/04/2019 3:31 PM CDT) athologist Signature INR, POCT, B 2.5 03/04/2019 [...] City/State/ZIP Code Phon e Number [facility]- [address] [place] [address] [facility] documented in this encounter Visit Diagnoses Diagnosis Monitoring For Therapeutic Drug Therapy Group Home (Current) Anticoagulant Treatm ent Anticoagulant Therapy Primary Hypercoagulation Syndrome (HCC) documented in this encounter Care Teams [place] Supervisor Relationship Specialty Start Date End Date Jacki Luther P.A.-C. PCP - General Family Medicine 05/24/18 09/24/19 documented as of this encounter
--- OUTSIDE RECORDS SUMMARY | 2022-05-25 20:59 | XMS_ITS | Encounter Summary ---
:1975 Author Organization [facility] Address [address] [place] [address] Care Team Providers Name Role Phone Jacki Luther P.A.-C. Primary Care Provider [phone] Encounter Details Date Type Department Care Team Description 01/29/2019 Anticoagulation Visit Department of Marina Luther Hypercoagulation Syndrome (HCC); Anticoagulation in [place] For Therapeutic Drug Therapy; Seth Car P.A.-C. International Trade Manager Anticoagulant Treatment; [address] Anticoagulant Therapy [address] [place] [address] [place] [phone] [place], [place] [phone] [address] Social History Tobacco Use Types Packs/Day Years [...] or relatives? How often do you attend restoration or More than 4 times per year 05/04/2022 orthodox services? Do you belong to any clubs or Yes 05/04/2022 organizations such as restoration groups, unions, fraternal or athletic groups, or [...] at Date Recorded Female 05/03/2022 7:07 PM PROFESSOR OF EDUCATION documented as of this encounter Progress Notes Lili Manzo R.N. - 01/29/2019 2:30 PM CDT Warfarin Maintenance Nursing Protocol Goal Range 2.0-3.0 (version approved 02/24/17) Visit Type: Patient presents for Rrmd-di-Vdpe visit in Anticoagulation Service. Primary reason for [...] Appointment Laboratory Medicine Rusty Vee M.D. 200 [place] [address] 06/22/2022 Diagnostic Pulmonary Medicine Rusty Vee M.D. [address] [place] [phone] 06/22/2022 Diagnostic Pulmonary Medicine Rusty Vee M.D. [address] [place] [phone] 06/22/2022 Appointment Radiology Rusty Vee M.D. [address] [place] [phone] 06/23/2022 Clinical Communication Admitting/Central Scheduling 06/28/2022 Appointment Pulmonary Medicine Rusty Vee M.D. [address] [place] [address] 06/28/2022 Appointment Pulmonary Medicine Rusty Vee M.D. [address] [place] [address] documented as of this encounter Procedures Procedure [...] Organization Address City/State/ZIP Code Phon e Number [facility]- [id number] [place] [address] [facility] documented in this encounter Visit Diagnoses Diagnosis Primary Hypercoagulation Syndrome (HCC) Monitoring For Therapeutic Drug Therapy International Trade Manager (Current) Anticoagulant Treatm ent Anticoagulant Therapy documented in this encounter Care Teams Irradiated Fuel Handler Relationship Specialty Start Date End Date Jacki Luther P.A.-C. PCP - General Family Medicine 05/24/18 09/24/19 documented as of this encounter
--- OUTSIDE RECORDS SUMMARY | 2022-05-25 20:59 | XMS_ITS | Encounter Summary ---
:1975 Author Organization [facility] Address [address] [place] [address] Care Team Providers Name Role Phone Jacki Luther P.A.-C. Primary Care Provider Reason for Visit Reason Comments Med Refill Encounter Details Date Type Department Care Team Description 01/30/2019 Refill Department of Anticoagulation in Lili Manzo R.N. Med Refill [address] [phone] [place] [address] (work) [phone] Social History Tobacco Use Types Packs/Day Years [...] at Date Recorded Female 05/03/2022 7:07 PM SLEEP TECHNICIAN documented as of this encounter Plan of Treatment Upcoming Encounters Date Type Specialty Care Team Description 06/22/2022 Appointment Laboratory Medicine Rusty Vee M.D. [address] [place] [phone] 06/22/2022 Diagnostic Pulmonary Medicine Rusty Vee M.D. [address] [place] [phone] 06/22/2022 Diagnostic Pulmonary Medicine Rusty Vee M.D. [address] [place] [phone] 06/22/2022 Appointment Radiology Rusty Vee M.D. [address] [place] [phone] 06/23/2022 Clinical Communication Admitting/Central Scheduling 06/28/2022 Appointment Pulmonary Medicine Rusty Vee M.D. [address] [place] [phone] 06/28/2022 Appointment Pulmonary Medicine Rusty Vee M.D. [address] [place] [phone] documented as of this encounter Visit Diagnoses Diagnosis Primary Hypercoagulation Syndrome (HCC) documented in this encounter Care Teams Automotive Fuel Injection Servicer Relationship Specialty Start Date End Date Jacki Luther P.A.-C. PCP - General Family Medicine 05/24/18 09/24/19 documented as of this encounter
--- OUTSIDE RECORDS SUMMARY | 2022-05-25 20:59 | XMS_ITS | Encounter Summary ---
:1975 Author Organization [facility] Address [address] [place] [address] Care Team Providers Name Role Phone Jacki Luther P.A.-C. Primary Care Provider [phone] Reason for Referral Outpatient (Routine) - Closed Specialty Diagnoses / Procedures Referred By Contact Refer red To Contact Diagnoses Pain Knee Bilateral Deyanira Weber APRN, [facility] [place] [facility] Procedures nzn-jkpl-jfkncepz-elbow arthrocentesis: L knee joint IA ARTHCS ASP/INJ MJR JT WO US IA TRIAMCINOLONE ACETONIDE INJ C.N.P., D.N.P. [address] [place] [phone] Referral ID Status Reason Start Date Expiration Date Visits Requ ested Visits Authorized [id number] Closed 04/23/2019 04/22/2020 1 1 utpatient (Routine) - Closed Specialty Diagnoses / Procedures Referred By Contact Refer red To Contact Diagnoses Pain Knee Bilateral Deyanira Weber APRN, [facility] Procedures oqk-srmo-odlmbzyd-elbow arthrocentesis: R knee joint C.N.P., D.N.P. [address] [place] [phone] Referral ID Status Reason Start Date Expiration Date Visits Requ ested Visits Authorized [id number] Closed 04/23/2019 04/22/2020 1 1 Reason for Visit Reason Comments Pain Pain Appointment Request (Routine) - Closed Specialty Diagnoses / Procedures Referred By Contact Refer red To Contact Orthopedic Surgery Referral ID Status Reason Start Date Expiration Date Visits Requ ested Visits Authorized [id number] Closed 04/01/2019 03/31/2020 1 1 Encounter Details Date Type Department Care Team Description 04/23/2019 Office Visit Department of Deyanira Weber, Pain Knee B ilateral Orthopedic Surgery in [place], (Prim angela Dx) Rosa Car D.N.P. [address] [place] [phone] Social History Tobacco Use Types Packs/Day Years [...] More than 4 times per year 05/04/2022 caodaism services? 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 - 04/23/2019 3:00 PM CDT Hue Medina is a pleasant 44 y.o. female who comes in for pain of her bilateral knee. She continues to have pain most noted with activity and is here today to discuss options. She has tried bheu-mqz-wjazois analgesics and activity modification without any significant [...] R.N. - 04/23/2019 3:00 PM CDTAssociated Order(s): ily-qfpe-ughynltt-elbow arthrocentesis: R knee joint; sbm-tbmw-fgywewsr-elbow ar throcentesis: L knee joint Post-Procedure Diagnose(s): [...] Appointment Laboratory Medicine Rusty Vee M.D. [address] [place] [phone] 06/22/2022 Diagnostic Pulmonary Medicine Rusty Vee M.D. [address] [place] [phone] 06/22/2022 Diagnostic Pulmonary Medicine Rusty Vee M.D. [address] [place] [phone] 06/22/2022 Appointment Radiology Rusty Vee M.D. [address] [place] [address] 06/23/2022 Clinical Communication Admitting/Central Scheduling 06/28/2022 Appointment Pulmonary Medicine Rusty Vee M.D. [address] [place] [address] 06/28/2022 Appointment Pulmonary Medicine Rusty Vee M.D. [address] [place] [address] documented as of this encounter Procedures Procedure Name Priority Date/Time Associated Diagnosis Comme nts IA ARTHCS ASP/INJ Routine 04/23/2019 3:00 PM Pain Knee Bilater al Results for this MJR JT WO US CDT procedure are i n the results section. IA ARTHCS ASP/INJ Routine 04/23/2019 3:00 PM Pain Knee Bilater al Results for this MJR JT WO US CDT procedure are i n the results section. documented in this encounter Results IA ARTHCS ASP/INJ MJR JT WO US (04/23/2019 [...] care an d follow-up with ordering provider Authorizing Provider Result Francia Weber APRN C.N.PMichael, D.N.P. PROCEDURE/MINOR MARY GICAL ORDERABLES Performing Organization Address [facility] Phon e Number MMODAL MMODAL NA IA ARTHCS ASP/INJ MJR JT WO US (04/23/2019 3:00 PM CDT) Narrative MMODAL - 04/23/2019 3:00 PM CDT Lindsay Bah R.N. ? 04/24/2019 ??7:56 AM Knee site- R knee joint Date/Time: 04/23/2019 2:55 PM Performed by: Deyanira Weber APRN, C.N. PMichael, D.N.PMichael Authorized by: Deyanira Weber APRN, C.N .P., [...] care an d follow-up with ordering provider Authorizing Provider Result Francia Weber APRN, C.N.P., D.N.P. PROCEDURE/MINOR MARY GICAL ORDERABLES Performing Organization Address [facility] Phon e Number MMODAL MMODAL NA documented [...] dose documented in this encounter Care Teams Life Insurance Sales Relationship Specialty Start Date End Date Jacki Luther P.A.-C. PCP - General Family Medicine 05/24/18 09/24/19 documented as of this encounter
--- OUTSIDE RECORDS SUMMARY | 2022-05-25 20:59 | XMS_ITS | Encounter Summary ---
:1975 Author Organization [facility] Address [address] [place] [address] Care Team Providers Name Role Phone Jacki Luther P.A.-C. Primary Care Provider Reason for Referral Outpatient (Routine) - Closed Specialty Diagnoses / Procedures Referred By Contact Refer red To Contact Dermatology Jus Foley M.D . [facility] [address] [place] [phone] Referral ID Status Reason Start Date Expiration Date Visits Requ ested Visits Authorized [id number] Closed 03/04/2019 03/03/2020 1 1 Scheduling Instructions Recheck psoriasis in 3 months Reason for Visit Reason Comments Skin Check Outpatient (Routine) - Closed Specialty Diagnoses / Procedures Referred By Contact Refer red To Contact Dermatology [facility].D . [facility] [address] [phone] Referral ID Status Reason Start Date Expiration Date Visits Requ ested Visits Authorized [id number] Closed 06/05/2018 06/05/2019 1 1 Encounter Details Date Type Department Care Team Description 03/04/2019 Office Visit Department of Jus Foley, Psoriasis (Primary Dx) Dermatology in [place], [place] [address] [place] [phone] Social History Tobacco Use Types Packs/Day Years [...] More than 4 times per year 05/04/2022 jainism services? 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 - 03/04/2019 3:45 PM CDT CHIEF COMPLAINT Recheck psoriasis HISTORY OF THE PRESENT ILLNESS Hue Medina is a pleasant 44 y.o. [employer] worker who has Down syndrome but lives independently. She is??accompanied by her mother and she??is being seen by me for recheck of psoriasis. During my initial visit with her on 04/23/18, she reported that she initially experienced psoriasis eruptions at the age of 12. She was treating the psoriasis with syaq-vdk-nyktcmqDkxqit 5% coal-tar lotion and symptoms were controlled [...] of Dovonex and mometasone as described above. At our last visit on 08/16/18, the patient stated that she had been following the regimen as directedand her psoriasis has significantly improved. She also started applying over the counter MG 217 topical tar cream to her shoulders and hands, which resulted in marked improvement. Additionally, the patient recently returned from a trip to [place] where she received a significant amount of sun exposure.They were also able to get the home unit for narrowband UV therapy approved which reportedly would arrive later that week. At that time, I recommended [...] psoriasis was quite mild at that time in July. Apparently,, the mother reports that they initiated narrowband UV therapy on 09/23/18. She started atsessions 3 times per week, and progressively increased the length of each session. By 10/14/18, the sessions were lasting 3:00 minutes each. The patient then transitioned to using UV therapy on average twice weekly at 3:00 minutes duration for the remainder of spring and summer. There was one instance when she experienced significant skin burning. At that time, they temporarily discontinued UV therapyuntil resolution of burn. Then the patient restarted treatment at 1 minutes and 30 seconds per session and progressively went back up to 3:00 minutes per session. The patient has been using Dovonex once daily Mondays through , and mometasone once daily Fridays through Sundays. ?? Mom and patient both denied any history for psoriatic arthritis. The patient's sister has arthritis and the patient's aunt has psoriatic arthritis. The patient has a history of Down's syndrome and??lives independently. She has a history of DVT??and has previously had heart surgery. PAST MEDICAL HISTORY Psoriasis, Down's syndrome, heart surgery and DVT PHYSICAL EXAM General: Awake, alert, in no acute distress, and with appropriate affect. Skin: Examination of the right lateral thigh reveals a few thick psoriaform plaque, with the largestone measuring 3 cm x 5.7 cm. Examination of left elbow reveals a few psoriaform plaques with the largest one measuring 3 cm x 1.3 cm. Examination of the right elbow reveals a few psoriaform plaques, with the largest one measuring 4.5 cm x 4 cm. Examination of the left distal thigh reveals a few psoriaform plaques, with the largest one measuring 3 cm x 2.7 cm. No suspicious lesions for skin cancer today. IMPRESSION AND PLAN #1 Trunk and extremities: Plaque psoriasis; mild involvement currently I advised that the patient discontinue narrowband UVB therapy at this time as her psoriasis is mild and she has not had a break from the narrowband UVB since July which day started on their own with her home unit. I recommended increasing Dovonex from once daily to twice daily Mondays through . She will continue mometasone once daily Fridays through Sundays. Plan for follow up in 3 months. If her psoriasis worsens by that time, we will consider restarting narrowband UV therapy at that time if needed. The patient and her mother express understanding and agreement to plan. Refills given today for Dovonex ointment and mometasone ointment to be used as above. PATIENT EDUCATION Ready to learn. No apparent learning barriers were identified. Learning preferences include listening. Explained diagnosis and treatment plan; patient/guardian of patient expressed understanding of thecontent. By signing my name below, I, Mane Castaneda, attest that this documentation has been prepared under thedirection and in the presence of Jus Foley M.D. Electronically Signed: simeon Morgan. 03/04/2019. 4:36 PM. I, Jus Foley M.D., personally performed the services described in this documentation. All medical record entries made by the scribe were at my direction and in my presence. I have reviewed the chart and discharge instructions (if applicable) and agree that the record reflects my personal performance and is accurate and complete. Jus Foley M.D. . 03/04/2019. 5:23 PM. documented in this encounter Plan of Treatment Upcoming Encounters Date Type Specialty Care Team Description 06/22/2022 Appointment Laboratory Medicine Rusty Vee M.D. [address] [place] [phone] 06/22/2022 Diagnostic Pulmonary Medicine Rusty Vee M.D. [address] [place] [address] 06/22/2022 Diagnostic Pulmonary Medicine Rusty Vee M.D. [address] [place] [phone] 06/22/2022 Appointment Radiology Rusty Vee M.D. [address] [place] [phone] 06/23/2022 Clinical Communication Admitting/Central Scheduling 06/28/2022 Appointment Pulmonary Medicine Rusty Vee M.D. [address] [place] [phone] 06/28/2022 Appointment Pulmonary Medicine Rutsy Vee M.D. [address] [place] [phone] Scheduled Referrals Name Type Priority Associated Order Schedule Diagnoses Dermatology office Outpatient Referral Routine Ex pected: visit (clinic) 06/03/2019 (Approximate), Expires: 03/04/2022 documented as of this encounter Visit Diagnoses Diagnosis Psoriasis - Primary documented in this encounter Care Teams Hadoop Consultant Relationship Specialty Start Date End Date Jacki Luther P.A.-C. PCP - General Family Medicine 05/24/18 09/24/19 documented as of this encounter
--- OUTSIDE RECORDS SUMMARY | 2022-05-25 20:59 | XMS_ITS | Encounter Summary ---
:1975 Author Organization [facility] Address [address] [place] [address] Care Team Providers Name Role Phone Jacki Luther P.A.-C. Primary Care Provider Reason for Visit Reason Comments Nurse Visit bp check and flu shot Appointment Request (Routine) - Closed Specialty Diagnoses / Procedures Referred By Contact Refer red To Contact Family Medicine Referral ID Status Reason Start Date Expiration Date Visits Requ ested Visits Authorized [id number] Closed 03/26/2019 03/25/2020 1 Encounter Details Date Type Department Care Team Description 04/02/2019 Nurse Only Department of Family Cora Luther P.AMichaelCMichael [address] [place] [address] Nurse Visit (bp check Medicine, [facility] Estefani Zapata R.N., [facility] and flu shot) Clinic, in [address] [phone] Social History Tobacco Use Types [...] More than 4 times per year 05/04/2022 hoahaoism services? Do you belong to any clubs or Yes 05/04/2022 organizations such as yarsani groups, unions, fraPEAR SPORTS or athletic groups, or school groups? 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 [address] [place] [phone] 06/22/2022 Diagnostic Pulmonary Medicine Rusty Vee M.D. [address] [place] [phone] 06/22/2022 Diagnostic Pulmonary Medicine Rusty Vee M.D. [address] [place] [phone] 06/22/2022 Appointment Radiology Rusty Vee M.D. [address] [place] [phone] 06/23/2022 Clinical Communication Admitting/Central Scheduling 06/28/2022 Appointment Pulmonary Medicine Rusty Vee M.D. [address] [place] [phone] 06/28/2022 Appointment Pulmonary Medicine Rusty Vee M.D. [address] [place] [phone] documented as of this encounter Visit Diagnoses Not on filedocumented in this encounter Care Teams Vending Machine Servicer Relationship Specialty Start Date End Date Jacki Luther P.A.-C. PCP - General Family Medicine 05/24/18 09/24/19 documented as of this encounter
--- OUTSIDE RECORDS SUMMARY | 2022-05-25 20:59 | XMS_ITS | Encounter Summary ---
:1975 Author Organization [facility] Address [address] [place] [address] Care Team Providers Name Role Phone Jacki Luther P.A.-C. Primary Care Provider [phone] Encounter Details Date Type Department Care Team Description 04/23/2019 Anticoagulation Visit Department of Marina Luther Hypercoagulation Syndrome (HCC); Anticoagulation in [place] For Therapeutic Drug Therapy; Seth Car P.A.-C. Radar Operator Anticoagulant Treatment; [address] Anticoagulant Therapy [address] [place] [address] [place] [phone] [place], [place] [phone] [address] Social History Tobacco Use Types Packs/Day Years [...] or slept in a detention (including now)? 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 - 04/23/2019 2:30 PM CDT Warfarin Maintenance Nursing Protocol Goal Range 2.0-3.0 (version approved 02/24/17) Visit Type: Patient presents for Ikxy-ql-Nmxd visit in Anticoagulation Service. Primary reason for [...] Appointment Laboratory Medicine Rusty Vee M.D. 200 [place] [phone] 06/22/2022 Diagnostic Pulmonary Medicine Rusty Vee M.D. [address] [place] [phone] 06/22/2022 Diagnostic Pulmonary Medicine Rusty Vee M.D. [address] [place] [phone] 06/22/2022 Appointment Radiology Rusty Vee M.D. [address] [place] [phone] 06/23/2022 Clinical Communication Admitting/Central Scheduling 06/28/2022 Appointment Pulmonary Medicine Rusty Vee M.D. [address] [place] [phone] 06/28/2022 Appointment Pulmonary Medicine Rusty Vee M.D. [address] [place] [address] documented as of this encounter Procedures Procedure Name Priority Date/Time Associated Diagnosis Comme nts INR, POCT, B Routine 04/23/2019 2:22 PM Results f or this CDT procedure are i n the results section . documented in this encounter Results INR, POCT (04/23/2019 2:22 PM CDT) athologist Signature INR, POCT, B 2.6 04/23/2019 [...] Address City/State/ZIP Code Phon e Number [facility]- [address] [place] [address] [place] [address] System [address] documented in this encounter Visit Diagnoses Diagnosis Primary Hypercoagulation Syndrome (HCC) Monitoring For Therapeutic Drug Therapy Radar Operator (Current) Anticoagulant Treatm ent Anticoagulant Therapy documented in this encounter Care Teams Fishing Accessories Maker Relationship Specialty Start Date End Date Jacki Luther P.A.-C. PCP - General Family Medicine 05/24/18 09/24/19 documented as of this encounter
--- OUTSIDE RECORDS SUMMARY | 2022-05-25 20:59 | XMS_ITS | Encounter Summary ---
:1975 Author Organization [facility] Address [address] [place] [address] Care Team Providers Name Role Phone Jacki Luther P.A.-C. Primary Care Provider Reason for Visit Reason Comments Med Refill Encounter Details Date Type Department Care Team Description 01/28/2019 Refill Department of Dermatology in Jus Lawton M.D. Med Refill [facility] [address] [place] [phone] [place], [place] [address] [phone] Social History Tobacco Use Types Packs/Day Years [...] or relatives? How often do you attend faith or More than 4 times per year 05/04/2022 restorationist services? 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 [address] [place] [phone] 06/22/2022 Diagnostic Pulmonary Medicine Rusty Vee M.D. [address] [place] [phone] 06/22/2022 Diagnostic Pulmonary Medicine Rusty Vee M.D. [address] [place] [phone] 06/22/2022 Appointment Radiology Rusty Vee M.D. [address] [place] [phone] 06/23/2022 Clinical Communication Admitting/Central Scheduling 06/28/2022 Appointment Pulmonary Medicine Rusty Vee M.D. [address] [place] [phone] 06/28/2022 Appointment Pulmonary Medicine Rusty Vee M.D. [address] [place] [phone] documented as of this encounter Visit Diagnoses Not on filedocumented in this encounter Care Teams Director Content Marketing Relationship Specialty Start Date End Date Jacki Luther P.A.-C. PCP - General Family Medicine 05/24/18 09/24/19 documented as of this encounter
--- OUTSIDE RECORDS SUMMARY | 2022-05-25 21:00 | XMS_ITS | Encounter Summary ---
:1975 Author Organization [facility] Address [address] [place] [address] Care Team Providers Name Role Phone Jacki Luther P.A.-C. Primary Care Provider Encounter Details Date Type Department Care Team Description 09/11/2018 Anticoagulation Visit Department of Hari Garibay For Therapeutic Drug Therapy; Anticoagulation in [facility], Global Logistics Analyst Anticoagulant Treatment; Rosa Car M.D. Primary Hypercoagulation Syndrome (HCC) [facility] [place] [address] [place] [address] [place], [facility] [phone] Social History Tobacco Use Types Packs/Day Years Used Date Smoking Tobacco: Never Smokeless Tobacco: Never Alcohol Habits Answer Date Recorded How often [...] More than 4 times per year 05/04/2022 gnosticist services? 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 [address] [place] [phone] 06/22/2022 Diagnostic Pulmonary Medicine Rusty Vee M.D. [address] [place] [phone] 06/22/2022 Diagnostic Pulmonary Medicine Rusty Vee M.D. [address] [place] [phone] 06/22/2022 Appointment Radiology Rusty Vee M.D. [address] [place] [phone] 06/23/2022 Clinical Communication Admitting/Central Scheduling 06/28/2022 Appointment Pulmonary Medicine Rusty Vee M.D. [address] [place] [phone] 06/28/2022 Appointment Pulmonary Rusty Mattson M.D. [address] [place] [phone] documented as of this encounter Visit Diagnoses Diagnosis Monitoring For Therapeutic Drug Therapy Correction (Current) Anticoagulant Treatm ent Primary Hypercoagulation Syndrome (HCC) documented in this encounter Care Teams Surgical Resident Relationship Specialty Start Date End Date Jacki Luther P.A.-C. PCP - General Family Medicine 05/24/18 09/24/19 documented as of this encounter
--- OUTSIDE RECORDS SUMMARY | 2022-05-25 21:00 | XMS_ITS | Encounter Summary ---
:1975 Author Organization [facility] Address [address] [place] [address] Care Team Providers Name Role Phone Edward Luther P.A.-C. Primary Care Provider [phone] Reason for Visit Reason Comments Cerumen Impaction Bilateral Outpatient (Routine) - Closed Specialty Diagnoses / Procedures Referred By Contact Refer red To Contact Family Medicine Diagnoses Cerumen Impacted Bilateral Edward Luther [facility] P.A.-C. [address] [place], [place] [address] Referral ID Status Reason Start Date Expiration Date Visits Requ ested Visits Authorized [id number] Closed 07/23/2018 07/23/2019 1 1 Encounter Details Date Type Department Care Team Description 07/24/2018 Nurse Only Department of [facility] Cora Luther P.AMichael-CMichael [address] [place] [address] Cerumen Impaction Medicine, [place] Arlyn Pereira, NehalPMichaelNMichael (Bilateral ) Clinic, in [address] [phone] Social History Tobacco Use Types [...] place to sleep or slept in a assisted (including now)? 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 - 07/24/2018 3:15 PM CSTAssociated Order(s): EAR [...] Hearing quality: Improved Complications: no immediate complications EQUIPMENT OPERATOR documented in this encounter Plan of Treatment Upcoming Encounters Date Type Specialty Care Team Description 06/22/2022 Appointment Laboratory Medicine Rusty Vee M.D. [address] [place] [phone] 06/22/2022 Diagnostic Pulmonary Medicine Rusty Vee M.D. [address] [place] [phone] 06/22/2022 Diagnostic Pulmonary Medicine Rusty Vee M.D. [address] [place] [phone] 06/22/2022 Appointment Radiology Rusty Vee M.D. [address] [place] [address] 06/23/2022 Clinical Communication Admitting/Central Scheduling 06/28/2022 Appointment Pulmonary Medicine Rusty Vee M.D. [address] [place] [address] 06/28/2022 Appointment Pulmonary Medicine Rusty Vee M.D. [address] [place] [address] documented as of this encounter Procedures Procedure Name Priority Date/Time Associated Diagnosis Comme nts MO RMVL IMPACT Routine 07/24/2018 3:15 PM Cerumen Impacted Res ults for this CERUMEN IRRIG FARM EQUIPMENT OPERATOR Bilateral procedure are in UNILAT the results section. documented in this encounter Results MO RMVL IMPACT CERUMEN IRRIG UNILAT (07/24/2018 3:15 PM FARM EQUIPMENT OPERATOR) Narrative MMODAL - 07/24/2018 3:15 PM FARM EQUIPMENT OPERATOR Arlyn Pereira, LMichaelP.N. ? 07/24/2018 ??3:36 PM Ear cerumen removal [...] Bilateral documented in this encounter Care Teams Healthcare Management Consultant Relationship Specialty Start Date End Date Edward Luther P.A.-C. PCP - General Family Medicine 05/24/18 09/24/19 documented as of this encounter
--- OUTSIDE RECORDS SUMMARY | 2022-05-25 21:00 | XMS_ITS | Encounter Summary ---
:1975 Author Organization [facility] Address [address] [place] [address] Care Team Providers Name Role Phone Jacki Luther P.A.-C. Primary Care Provider Encounter Details Date Type Department Care Team Description 09/11/2018 Anticoagulation Visit Department of Marina Garibay Hypercoagulation Syndrome (HCC); Anticoagulation in [place] For Therapeutic Drug Therapy; Seth Car M.D. Cloth Designer Anticoagulant Treatment [facility] [id number] [place] [phone] (Work) Social History Tobacco Use [...] More than 4 times per year 05/04/2022 adventism services? Do you belong to any clubs [...] place to sleep or slept in a halfway (including now)? Sex Assigned at Date Recorded Female 05/03/2022 7:07 PM NURSE PRIVATE DUTY documented as of this encounter Progress Notes Lili Manzo R.N. - 09/11/2018 2:30 PM CDT Warfarin Maintenance Nursing Protocol Goal Range 2.0-3.0 (version approved 02/24/17) Visit Type: Patient presents for Ujst-qp-Llhu visit in Anticoagulation Service. Primary reason for [...] Laboratory Medicine Rusty Vee M.D. [address] [place] [address] 06/22/2022 Diagnostic Pulmonary Medicine Rusty Vee M.D. [address] [place] [phone] 06/22/2022 Diagnostic Pulmonary Medicine Rusty Vee M.D. [address] [place] [phone] 06/22/2022 Appointment Radiology Rusty Vee M.D. [address] [place] [phone] 06/23/2022 Clinical Communication Admitting/Central Scheduling 06/28/2022 Appointment Pulmonary Medicine Rusty Vee M.D. [address] [place] [phone] 06/28/2022 Appointment Pulmonary Medicine Rusty Vee M.D. [address] [place] [address] documented as of this encounter Procedures Procedure Name Priority Date/Time Associated Diagnosis Comme nts INR, POCT, B Routine 09/11/2018 2:32 PM Results f or this CDT procedure are i n the results section . documented in this encounter Results INR, POCT (09/11/2018 2:32 PM CDT) P athologist Signature INR, POCT, B 2.6 09/11/2018 [facility] 2:32 PM CDT [facility] Comment: ----ADDITIONAL INFORMATION---- Standard intensity warfarin therapeutic range: 2.0 to 3.0 ?? High intensity warfarin therapeutic rang e: 2.5 to 3.5 Specimen Anatomical Collection Method Collection Time Receive d Time (Source) Location / / Volume Laterality 09/11/2018 2:32 PM 9 2:34 CDT PM CDT Generic [facility] POCT ORDERABLES - DEVICE Performing Organization Address City/State/[facility] Code Phon e Number [facility]- [address] [place] [address] [facility] documented in this encounter Visit Diagnoses Diagnosis Primary Hypercoagulation Syndrome (HCC) Monitoring For Therapeutic Drug Therapy Cloth Designer (Current) Anticoagulant Treatm ent documented in this encounter Care Teams Digester Capper Relationship Specialty Start Date End Date Jacki Luther P.A.-C. PCP - General Family Medicine 05/24/18 09/24/19 documented as of this encounter
--- OUTSIDE RECORDS SUMMARY | 2022-05-25 21:00 | XMS_ITS | Encounter Summary ---
:1975 Author Organization [facility] Address [address] [place] [address] Care Team Providers Name Role Phone Jacki Luther P.A.-C. Primary Care Provider Reason for Referral Outpatient (Routine) - Closed Specialty Diagnoses / Procedures Referred By Contact Refer red To Contact Diagnoses Pain Knee Left Deyanira Carlson APRN, [facility] Procedures Large Joint Injection NE ARTHCS ASP/INJ MJR JT WO NE TRIAMCINOLONE ACETONIDE INJ C.N.P., D.N.P. [address] [place] [phone] Referral ID Status Reason Start Date Expiration Date Visits Requ ested Visits Authorized [id number] Closed 08/14/2018 08/14/2019 1 1 BOOKED FOLDER AND STITCHER Reason for Visit Reason Comments Pain Continues to be painful Outpatient (Routine) - Closed Specialty Diagnoses / Procedures Referred By Contact Refer red To Contact Orthopedic Surgery Diagnoses Pain Knee Right Jacki Luther [facility] P.A.-C. [address] [place], [place] [address] Referral ID Status Reason Start Date Expiration Date Visits Requ ested Visits Authorized [id number] Closed 07/10/2018 07/10/2019 1 1 Encounter Details Date Type Department Care Team Description 08/14/2018 Comprehensive Visit Department of Valdemar Thomas M.D. [address] [place] [address] Pain Knee Left (Primary Dx); Orthopedic Surgery Deyanira Carlson APRN, C.NMichaelP., D.N.P. [address] [place] [address] Pain Knee Right in [address] [phone] Social History Tobacco Use [...] at Date Recorded Female 05/03/2022 7:07 PM HAND BOOKED FOLDER AND STITCHER documented as of this encounter Progress Notes Deyanira Carlson, TETE, C.N.P., D.N.P. - 08/14/2018 3:00 PM CST Hue Medina is a pleasant 43 y.o. female who comes in for pain of her left knee. She continues to have pain most noted with activity and is here today to discuss options. She has tried whti-ifk-kxdwpoe analgesics and activity modification without any significant improvement. She is accompanied today with her mother. ?? Physical exam in general patient appears nondistressed. left knee has no signs or symptoms of an infection. There is 0-120?? flexion. Knee is stable to valgus and varus. Negative drawer sign. ?? Diagnostic studies- Xray of knee confirms degenerative arthritis of left knee. ?? Impression and plan- Hue Medina is a very pleasant 43 y.o. who has a painful knee. She has tried conservative measures without improvement. We discussed treatment options. She would like to proceed with a cortisone injection. After brief discussion of benefits and risks, a consent form obtained , per sterile technique, using the lateral approach, a small amount of 1% lidocaine and 60 mg Kenalog was injected into the left knee without difficulty. Patient tolerated the procedure well. Will plan to see back in the following weeks if continues to be symptomatic. Questions were answered BOOKED FOLDER AND STITCHER documented in this encounter Procedure Notes Blessing Vargas L.P.N. - 08/14/2018 3:00 PM CSTAssociated Order(s): LARGE JOINT INJECTION Post-Procedure Diagnose(s): Pain Knee Left Afd-pxnp-oxddydug-elbow arthrocentesis Date/Time: 08/14/2018 3:30 PM Performed by: DEYANIRA CARLSON Authorized by: DEYANIRA CARLSON Care team members present: Tono Wind Field Manager utilized: gang leader not needed Risks discussed with: patient Procedural risks discussed, including (but not limited to) the following: allergic reaction, infection, reaction to medication, possible continued pain, transient increased pain and bleeding Consent obtained: written Procedure purpose: therapeutic and diagnostic Indications: left knee pain Skin preparation: povidone-iodine Anesthesia method: none Procedure location: knee - Knee site: L knee joint Site prep: patient was prepped and draped in usual sterile fashion Procedural approach: anterolateral Procedure performed: injection only Needle gauge: 22 G, length: 1 1/2 in The following medications were administered at the target site(s): Local anesthetic: 6 mL lidocaine (PF) 10 mg/mL (1 %) Corticosteroid: 60 mg triamcinolone acetonide 40 mg/mL Procedure completed successfully: yes Complications: no apparent complications Discharge instructions: dressing care and follow-up with ordering provider BOOKED FOLDER AND STITCHER documented in this encounter Plan of Treatment Upcoming Encounters Date Type Specialty Care Team Description 06/22/2022 Appointment Laboratory Medicine Rusty Vee M.D. [address] [place] [phone] 06/22/2022 Diagnostic Pulmonary Medicine Rusty Vee M.D. [address] [place] [phone] 06/22/2022 Diagnostic Pulmonary Medicine Rusty Vee M.D. [address] [place] [phone] 06/22/2022 Appointment Radiology Rusty Vee M.D. [address] [place] [phone] 06/23/2022 Clinical Communication Admitting/Central Scheduling 06/28/2022 Appointment Pulmonary Medicine Rusty Vee M.D. [address] [place] [phone] 06/28/2022 Appointment Pulmonary Medicine Rusty Vee M.D. [address] [place] [phone] documented as of this encounter Procedures Procedure Name Priority Date/Time Associated Diagnosis Comme nts NE ARTHCS ASP/INJ Routine 08/14/2018 3:00 PM Pain Knee Left Re sults for this AMAYA LU US HAND BOOKED FOLDER AND STITCHER procedure are i n the results section. documented in this encounter Results NE ARTHCS ASP/INJ MJR CRISTOFER WO US (08/14/2018 3:00 PM HAND BOOKED FOLDER AND STITCHER) Narrative MMODAL - 08/14/2018 3:00 PM HAND BOOKED FOLDER AND STITCHER Blessing Vargas L.P.N. ? 08/15/2018 ??2:04 PM Jwp-griy-zpbdknyz-elbow arthrocentesis Date/Time: 08/14/2018 3:30 PM Performed by: DEYANIRA CARLSON Authorized by: DEYANIRA CARLSON Care team members present: ??Tono Wind Field Manager utilized: gang leader lucy reyes ?? Risks discussed with: patient Procedural risks discussed, including (b ut not limited to) the following: allergic reaction, infection, reaction t o medication, possible continued pain, transient increased pain and bleed ing Consent obtained: written Procedure purpose: therapeutic and diagn ostic Indications: left knee pain Skin preparation: povidone-iodine Anesthesia method: none Procedure location: knee - Knee site: L knee joint Site prep: patient was prepped and drape d in usual sterile fashion ?? Procedural approach: anterolateral Procedure performed: injection only Needle gauge: 22 G, length: 1 1/2 in The following medications were administe red at the target site(s): ??Local anesthetic: 6 mL lidocaine (PF) 10 mg/mL (1 %) ??Corticosteroid: 60 mg triamcinolone a cetonide 40 mg/mL Procedure completed successfully: yes Complications: no apparent complications ?Discharge instructions: dressing care and follow-up with ordering provider Deyanira Carlson APRN, C.N.P., D.N.P. PROCEDURE/MINOR MARY GICAL ORDERABLES Performing Organization Address City/State/ZIP Code Phon e Number MMODAL MMODAL NA documented in this encounter Visit Diagnoses Diagnosis Pain Knee Left - Primary Pain Knee Right documented in this encounter Administered Medications Inactive Administered Medications - up to 3 most recent administrations Medication Order MAR Action Action Date Dose Rate Site lidocaine (PF) 10 mg/mL (1 %) Given 08/14/2018 3:30 PM HAND BOOKED FOLDER AND STITCHER 6 mL injection 6 mL (XYLOCAINE) 6 mL, infiltration, One-Time Injection, Starting on Mon08/14/18 at 1530, For 1 dose triamcinolone acetonide injection 60 mg Given 08/14/2018 3:30 PM HAND BOOKED FOLDER AND STITCHER 60 mg (KENALOG-40) 60 mg, intra-articular, One-Time Injection, Starting on Mon08/14/18 at 1530, For 1 dose documented in this encounter Care Teams Stripper And Opaquer Apprentice Relationship Specialty Start Date End Date Jacki Luther P.AMichaelC. PCP - General Family Medicine 05/24/18 09/24/19 documented as of this encounter
--- OUTSIDE RECORDS SUMMARY | 2022-05-25 21:00 | XMS_ITS | Encounter Summary ---
:1975 Author Organization [facility] Address [address] [place] [address] Care Team Providers Name Role Phone Jacki Luther P.A.-C. Primary Care Provider Encounter Details Date Type Department Care Team Description 08/22/2018 Abstract [place], [place] Provider, Historical [address] [place] [phone] Social History Tobacco Use Types Packs/Day Years [...] at Date Recorded Female 05/03/2022 7:07 PM AWNING HANGER SUPERVISOR documented as of this encounter Plan of Treatment Upcoming Encounters Date Type Specialty Care Team Description 06/22/2022 Appointment Laboratory Medicine Rusty Vee M.D. [address] [place] [address] 06/22/2022 Diagnostic Pulmonary Medicine Rusty Vee M.D. [address] [place] [phone] 06/22/2022 Diagnostic Pulmonary Medicine Rusty Vee M.D. [address] [place] [phone] 06/22/2022 Appointment Radiology Rusty Vee M.D. [address] [place] [phone] 06/23/2022 Clinical Communication Admitting/Central Scheduling 06/28/2022 Appointment Pulmonary Medicine Rusty Vee M.D. [address] [place] [phone] 06/28/2022 Appointment Pulmonary Medicine Rusty Vee M.D. [address] [place] [phone] documented as of this encounter Visit Diagnoses Not on filedocumented in this encounter Care Teams Job Recruiter Relationship Specialty Start Date End Date Jacki Luther P.A.-C. PCP - General Family Medicine 05/24/18 09/24/19 documented as of this encounter
--- OUTSIDE RECORDS SUMMARY | 2022-05-25 21:00 | XMS_ITS | Encounter Summary ---
:1975 Author Organization [facility] Address [address] [place] [address] Care Team Providers Name Role Phone Jacki Luther P.A.-C. Primary Care Provider Encounter Details Date Type Department Care Team Description 07/24/2018 Clinical Communication Department of [facility] [place] [facility] L[facility]PViktor [facility], in [address] [phone] Social History Tobacco Use Types Packs/Day Years [...] at Date Recorded Female 05/03/2022 7:07 PM SERGEANT AT ARMS documented as of this encounter Miscellaneous Notes Telephone Encounter - Arlyn Phillips L.P.NMichael - 07/31/2018 3:22 PM SERGEANT AT ARMS Left detailed message on private voicemail for patient's mother, Fabiola. Let her know that the prescription was correctly filled and that Jacki agrees with the plan to follow up for another ear cleaning. I asked her to give us a call back if she has any questions. EANT AT ARMS Telephone Encounter - Jacki Luther P.A.-C. - 07/24/2018 3:47 PM SERGEANT AT ARMS Refill sent for patient. Agree with return for irrigation. EANT AT ARMS Telephone Encounter - Arlyn Phillips L.P.N. - 07/24/2018 3:39 PM SERGEANT AT ARMS Patient was seen today by nursing for [...] as they will be going on vacation. EANT AT ARMS documented in this encounter Plan of Treatment Upcoming Encounters Date Type Specialty Care Team Description 06/22/2022 Appointment Laboratory Medicine Rusty Vee M.D. [address] [place] [phone] 06/22/2022 Diagnostic Pulmonary Medicine Rusty Vee M.D. [address] [place] [address] 06/22/2022 Diagnostic Pulmonary Medicine Rusty Vee M.D. [address] [place] [phone] 06/22/2022 Appointment Radiology Rusty Vee M.D. [address] [place] [phone] 06/23/2022 Clinical Communication Admitting/Central Scheduling 06/28/2022 Appointment Pulmonary Medicine Rusty Vee M.D. [address] [place] [phone] 06/28/2022 Appointment Pulmonary Medicine Rusty Vee M.D. [address] [place] [phone] documented as of this encounter Visit Diagnoses Not on filedocumented in this encounter Care Teams Conventions Reservationist Relationship Specialty Start Date End Date Jacki Luther P.A.-C. PCP - General Family Medicine 05/24/18 09/24/19 documented as of this encounter
--- OUTSIDE RECORDS SUMMARY | 2022-05-25 21:00 | XMS_ITS | Encounter Summary ---
:1975 Author Organization [facility] Address [address] [place] [address] Care Team Providers Name Role Phone Jacki Luther P.A.-C. Primary Care Provider Reason for Visit Reason Comments Med Refill Encounter Details Date Type Department Care Team Description 08/30/2018 Refill Department of Dermatology in Jus Lawton M.D. Med Refill [facility] chidi [address] [place] [phone] [place], [place] [address] [phone] Social History Tobacco Use Types Packs/Day Years [...] More than 4 times per year 05/04/2022 tenriism services? Do you belong to any clubs [...] at Date Recorded Female 05/03/2022 7:07 PM GRAPHIC SPECIALIST documented as of this encounter Plan of Treatment Upcoming Encounters Date Type Specialty Care Team Description 06/22/2022 Appointment Laboratory Medicine Rusty Vee M.D. [address] [place] [phone] 06/22/2022 Diagnostic Pulmonary Medicine Rusty Vee M.D. [address] [place] [phone] 06/22/2022 Diagnostic Pulmonary Medicine Rusty Vee M.D. [address] [place] [phone] 06/22/2022 Appointment Radiology Rusty Vee M.D. [address] [place] [phone] 06/23/2022 Clinical Communication Admitting/Central Scheduling 06/28/2022 Appointment Pulmonary Medicine Rusty Vee M.D. [address] [place] [phone] 06/28/2022 Appointment Pulmonary Medicine Rusty Vee M.D. [address] [place] [phone] documented as of this encounter Visit Diagnoses Not on filedocumented in this encounter Care Teams Car Mechanic Helper Relationship Specialty Start Date End Date Jacki Luther P.A.-C. PCP - General Family Medicine 05/24/18 09/24/19 documented as of this encounter
--- OUTSIDE RECORDS SUMMARY | 2022-05-25 21:00 | XMS_ITS | Encounter Summary ---
:1975 Author Organization [facility] Address [address] [place] [address] Care Team Providers Name Role Phone Jacki Luther P.A.-C. Primary Care Provider Reason for Visit Reason Comments Follow-up Outpatient (Routine) - Closed Specialty Diagnoses / Procedures Referred By Contact Refer red To Contact Dermatology Jus Foley M.D . [facility] Region [address] [place] [address] Referral ID Status Reason Start Date Expiration Date Visits Requ ested Visits Authorized [id number] Closed 06/05/2018 06/05/2019 1 1 Encounter Details Date Type Department Care Team Description 08/20/2018 Office Visit Department of Jus Foley, Psoriasis (Primary Dx) Dermatology in [place], [place] [address] [place] [phone] Social History Tobacco Use Types Packs/Day Years [...] or relatives? How often do you attend rastafari or More than 4 times per year 05/04/2022 sabianism services? Do you belong to any clubs or Yes 05/04/2022 organizations such as rastafari groups, unions, fraternal or athletic groups, or [...] or slept in a correction (including now)? Sex Assigned at Date Recorded Female 05/03/2022 7:07 PM RETAIL CUSTOMER SERVICE REPRESENTATIVE documented as of this encounter Progress Notes Jus Foley M.D. 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 She is??accompanied by mother and she??is being seen by me for recheck of psoriasis. During my initial visit with her on 04/23/18, she reported that she initially experienced psoriasis eruptions at the age of 12. She was treating the psoriasis with fzvk-fft-oaeydgb Oxipor 5% coal-tar lotion and symptoms were [...] I recommended narrow band UVB phototherapy at [facility]. The patientand her mother were interested [...] I recommended narrow band UVB phototherapy at [facility]. The patient and her mother declined [...] patient recently returned from a trip to [place] where she received a significant amount of [...] tar, sun exposure during recent trip to [place], and showering in soft water only. I [...] Signed: simeon Cevallos. 08/20/2018. 1:52 PM . [place] CUSTOMER SERVICE REPRESENTATIVE documented in this encounter Plan of Treatment Upcoming Encounters Date Type Specialty Care Team Description 06/22/2022 Appointment Laboratory Medicine Rusty Vee M.D. [address] [place] [phone] 06/22/2022 Diagnostic Pulmonary Medicine Rusty Vee M.D. [address] [place] [phone] 06/22/2022 Diagnostic Pulmonary Medicine Rusty Vee M.D. [address] [place] [phone] 06/22/2022 Appointment Radiology Rusty Vee M.D. [address] [place] [phone] 06/23/2022 Clinical Communication Admitting/Central Scheduling 06/28/2022 Appointment Pulmonary Medicine Rusty Vee M.D. [address] [place] [phone] 06/28/2022 Appointment Pulmonary Rusty Mattson M.D. [address] [place] [phone] documented as of this encounter Visit Diagnoses Diagnosis Psoriasis - Primary documented in this encounter Care Teams Tugboat Pilot Relationship Specialty Start Date End Date Jacki Luther P.A.-C. PCP - General Family Medicine 05/24/18 09/24/19 documented as of this encounter
--- OUTSIDE RECORDS SUMMARY | 2022-05-25 21:00 | XMS_ITS | Encounter Summary ---
:1975 Author Organization [facility] Address [address] [place] [address] Care Team Providers Name Role Phone Jacki Luther P.A.-C. Primary Care Provider [phone] Encounter Details Date Type Department Care Team Description 08/14/2018 Clinical Communication Department of Iris Gar [facility], [place] [facility], [id number] [place] [address] [phone] (Work) [phone] Social History Tobacco Use Types Packs/Day Years [...] or relatives? How often do you attend evangelical or More than 4 times per year 05/04/2022 synagogue services? Do you belong to any clubs or Yes 05/04/2022 organizations such as evangelical groups, unions, fraternal or athletic groups, or [...] at Date Recorded Female 05/03/2022 7:07 PM MAINTENANCE ASSISTANT documented as of this encounter Plan of Treatment Upcoming Encounters Date Type Specialty Care Team Description 06/22/2022 Appointment Laboratory Medicine Rusty Vee M.D. [address] [place] [phone] 06/22/2022 Diagnostic Pulmonary Medicine Rusty Vee M.D. [address] [place] [phone] 06/22/2022 Diagnostic Pulmonary Medicine Rusty Vee M.D. [address] [place] [phone] 06/22/2022 Appointment Radiology Rusty Vee M.D. [address] [place] [phone] 06/23/2022 Clinical Communication Admitting/Central Scheduling 06/28/2022 Appointment Pulmonary Medicine Rusty Vee M.D. [address] [place] [phone] 06/28/2022 Appointment Pulmonary Medicine Rusty Vee M.D. [address] [place] [phone] documented as of this encounter Visit Diagnoses Not on filedocumented in this encounter Care Teams Nutritional Services Director Relationship Specialty Start Date End Date Jacki Luther P.A.-C. PCP - General Family Medicine 05/24/18 09/24/19 documented as of this encounter
--- OUTSIDE RECORDS SUMMARY | 2022-05-25 21:00 | XMS_ITS | Encounter Summary ---
:1975 Author Organization [facility] Address [address] [place] [address] Care Team Providers Name Role Phone Jacki Luther P.A.-C. Primary Care Provider Reason for Referral Outpatient (Routine) - Closed Specialty Diagnoses / Procedures Referred By Contact Refer red To Contact Family Medicine Diagnoses Cerumen Impacted Bilateral Jacki Luther [facility] [place] [id number] [place] [address] 55 24 Referral ID Status Reason Start Date Expiration Date Visits Requ ested Visits Authorized [id number] Closed 07/23/2018 07/23/2019 1 1 Scheduling Instructions To be scheduled 07/24 at 3:15 on the WORK FROM HOME schedule. ONKEEPER Encounter Details Date Type Department Care Team Description 07/23/2018 Orders Only Department of Family Jacki Luther C erumen Impacted Medicine, [place] [facility] B[facility] (Primary Dx) [facility], in [address] [address] [place], [place] [phone] (Work) [phone] Social History Tobacco Use Types Packs/Day Years [...] or slept in a mcc (including now)? Sex Assigned at Date Recorded Female 05/03/2022 7:07 PM SALOONKEEPER documented as of this encounter Plan of Treatment Upcoming Encounters Date Type Specialty Care Team Description 06/22/2022 Appointment Laboratory Medicine Rusty Vee M.D. [address] [place] [phone] 06/22/2022 Diagnostic Pulmonary Medicine Rusty Vee M.D. [address] [place] [phone] 06/22/2022 Diagnostic Pulmonary Medicine Rusty Vee M.D. [address] [place] [phone] 06/22/2022 Appointment Radiology Rusty Vee M.D. [address] [place] [phone] 06/23/2022 Clinical Communication Admitting/Central Scheduling 06/28/2022 Appointment Pulmonary Medicine Rusty Vee M.D. [address] [place] [phone] 06/28/2022 Appointment Pulmonary Medicine Rusty Vee M.D. [address] [place] [phone] Scheduled Referrals Name Type Priority Associated Diagnoses Order S chedule Family Medicine Outpatient Referral Routine Cerumen Impacted E xpected: nurse visit Bilateral 07/24/2018, (clinic) Expires: 07/23/2021 documented as of this encounter Visit Diagnoses Diagnosis Cerumen Impacted Bilateral - Primary documented in this encounter Care Teams Clinical Review Specialist Relationship Specialty Start Date End Date Jacki Luther P.A.-C. PCP - General Family Medicine 05/24/18 09/24/19 documented as of this encounter
--- OUTSIDE RECORDS SUMMARY | 2022-05-25 21:00 | XMS_ITS | Encounter Summary ---
:1975 Author Organization [facility] Address [address] [place] [address] Care Team Providers Name Role Phone Jacki Luther P.A.-C. Primary Care Provider Encounter Details Date Type Department Care Team Description 07/17/2018 Anticoagulation Visit Department of Marina Garibay Anticoagulation in [place] [facility], Hypercoag ulation Seth Car M.D. Syndrome (HCC) [facility] [address] [place] [address] [facility] [phone] Social History Tobacco Use Types Packs/Day Years [...] at Date Recorded Female 05/03/2022 7:07 PM HEEL EMERY BUFFER documented as of this encounter Progress Notes Nichole Bowers, RMichaelNMichael - 07/17/2018 8:00 AM CST Warfarin Maintenance Nursing Protocol Goal Range 2.0-3.0 (version approved 02/24/17) Visit Type: Patient presents for Tnyq-fy-Awgv visit in Anticoagulation Service. Primary reason for [...] agreeable to the plan of care yes EMERY BUFFER documented in this encounter Plan of Treatment Upcoming Encounters Date Type Specialty Care Team Description 06/22/2022 Appointment Laboratory Medicine Rusty Vee M.D. [address] [place] [address] 06/22/2022 Diagnostic Pulmonary Medicine Rusty Vee M.D. [address] [place] [phone] 06/22/2022 Diagnostic Pulmonary Medicine Rusty Vee M.D. [address] [place] [phone] 06/22/2022 Appointment Radiology Rusty Vee M.D. [address] [place] [phone] 06/23/2022 Clinical Communication Admitting/Central Scheduling 06/28/2022 Appointment Pulmonary Medicine Rusty Vee M.D. [address] [place] [phone] 06/28/2022 Appointment Pulmonary Medicine Rusty Vee M.D. [address] [place] [address] documented as of this encounter Procedures Procedure Name Priority Date/Time Associated Diagnosis Comme nts INR, POCT, B Routine 07/17/2018 8:03 AM Results f or this HEEL EMERY BUFFER procedure are i n the results section . documented in this encounter Results INR, POCT (07/17/2018 8:03 AM HEEL EMERY BUFFER) P athologist Signature INR, POCT, B 3.0 07/17/2018 [facility] 8:03 AM [facility] Comment: ----ADDITIONAL INFORMATION---- Standard intensity warfarin therapeutic range: 2.0 to 3.0 ?? High intensity warfarin therapeutic rang e: 2.5 to 3.5 Specimen Anatomical Collection Method Collection Time Receive d Time (Source) Location / / Volume Laterality 07/17/2018 8:03 AM 9 8:05 HEEL EMERY BUFFER AM HEEL EMERY BUFFER Generic [facility] POCT ORDERABLES - DEVICE Performing Organization Address City/State/ZIP Code Phon e Number [facility]- [address] [place] [address] [facility] documented in this encounter Visit Diagnoses Diagnosis Primary Hypercoagulation Syndrome (HCC) documented in this encounter Care Teams Salesperson Books Relationship Specialty Start Date End Date Jacki Luther P.A.-C. PCP - General Family Medicine 05/24/18 09/24/19 documented as of this encounter
--- OUTSIDE RECORDS SUMMARY | 2022-05-25 21:00 | XMS_ITS | Encounter Summary ---
:1975 Author Organization [facility] Address [address] [place] [address] Care Team Providers Name Role Phone Edward Luther P.A.-C. Primary Care Provider Encounter Details Date Type Department Care Team Description 08/20/2018 Orders Only Department of Family Edward Luther C [facility] Medicine, [place] [facility] Bilateral (Primary Dx) Clinic, in [id number] [place] [address] [phone] (Work) [phone] Social History Tobacco Use Types Packs/Day Years [...] Recorded Female 05/03/2022 7:07 PM DIRECTOR OF ENROLLMENT documented as of this encounter Plan of Treatment Upcoming Encounters Date Type Specialty Care Team Description 06/22/2022 Appointment Laboratory Medicine Rusty Vee M.D. [address] [place] [phone] 06/22/2022 Diagnostic Pulmonary Medicine Rusty Vee M.D. [address] [place] [phone] 06/22/2022 Diagnostic Pulmonary Medicine Rusty Vee M.D. [address] [place] [phone] 06/22/2022 Appointment Radiology Rusty Vee M.D. [address] [place] [phone] 06/23/2022 Clinical Communication Admitting/Central Scheduling 06/28/2022 Appointment Pulmonary Medicine Rusty Vee M.D. [address] [place] [phone] 06/28/2022 Appointment Pulmonary Medicine Rusty Vee M.D. [address] [place] [phone] documented as of this encounter Results FAM proc ear wax removal (08/20/2018 3:15 PM DIRECTOR OF ENROLLMENT) Narrative MMODAL - 08/20/2018 3:15 PM DIRECTOR OF ENROLLMENT Arlyn Pereira, LMichaelPMichaelN. ? 08/20/2018 ??3:00 PM FAM proc ear [...] Primary documented in this encounter Care Teams Machining Supervisor Relationship Specialty Start Date End Date Edward Luther P.A.-C. PCP - General Family Medicine 05/24/18 09/24/19 documented as of this encounter
--- OUTSIDE RECORDS SUMMARY | 2022-05-25 21:00 | XMS_ITS | Encounter Summary ---
:1975 Author Organization [facility] Address [address] [place] [address] Care Team Providers Name Role Phone Jacki Luther P.A.-C. Primary Care Provider Encounter Details Date Type Department Care Team Description 10/02/2018 Anticoagulation Visit Department of Marina Garibay Hypercoagulation Syndrome (HCC); Anticoagulation in [place] For Therapeutic Drug Therapy; Seth Car M.D. Half[place] Anticoagulant Treatment [facility] [phone] [place] [phone] (Work) Social History Tobacco Use [...] at Date Recorded Female 05/03/2022 7:07 PM INTERVENTIONAL NEURORADIOLOGIST documented as of this encounter Progress Notes Sjoquist, Nichole S, R.N. - 10/02/2018 2:30 PM CDT Warfarin Maintenance Nursing Protocol Goal Range 2.0-3.0 (version approved 02/24/17) Visit Type: Patient presents for Vgsm-fg-Pjoz visit in Anticoagulation Service. Primary reason for [...] Appointment Laboratory Medicine Rusty Vee M.D. [address] [place] [phone] 06/22/2022 Diagnostic Pulmonary Medicine Rusty Vee M.D. [address] [place] [phone] 06/22/2022 Diagnostic Pulmonary Medicine Rusty Vee M.D. [address] [place] [phone] 06/22/2022 Appointment Radiology Rusty Vee M.D. [address] [place] [phone] 06/23/2022 Clinical Communication Admitting/Central Scheduling 06/28/2022 Appointment Pulmonary Medicine Rusty Vee M.D. [address] [place] [phone] 06/28/2022 Appointment Pulmonary Medicine Rusty Vee M.D. [address] [place] [address] documented as of this encounter Procedures Procedure Name Priority Date/Time Associated Diagnosis Comme nts INR, POCT, B Routine 10/02/2018 2:24 PM Results f or this CDT procedure are i n the results section . documented in this encounter Results INR, POCT (10/02/2018 2:24 PM CDT) athologist Signature INR, POCT, B 2.2 10/02/2018 [facility] 2:24 PM CDT [facility] [facility] Comment: ----ADDITIONAL INFORMATION---- Standard intensity warfarin therapeutic range: 2.0 to 3.0 ?? High intensity warfarin therapeutic rang e: 2.5 to 3.5 Specimen Anatomical Collection Method Collection Time Receive d Time (Source) Location / / Volume Laterality 10/02/2018 2:24 PM 9 2:26 CDT PM CDT Generic [facility] POCT ORDERABLES - DEVICE Performing Organization Address City/State/ZIP Code Phon e Number [facility]- [address] [place] [address] [facility] documented in this encounter Visit Diagnoses Diagnosis Primary Hypercoagulation Syndrome (HCC) Monitoring For Therapeutic Drug Therapy Candle Making Supervisor (Current) Anticoagulant Treatm ent documented in this encounter Care Teams Unit Controller Relationship Specialty Start Date End Date Jacki Luther P.A.-C. PCP - General Family Medicine 05/24/18 09/24/19 documented as of this encounter
--- OUTSIDE RECORDS SUMMARY | 2022-05-25 21:00 | XMS_ITS | Encounter Summary ---
:1975 Author Organization [facility] Address [address] [place] [address] Care Team Providers Name Role Phone Jacki Luther P.A.-C. Primary Care Provider [phone] Encounter Details Date Type Department Care Team Description 08/14/2018 Anticoagulation Visit Department of Marina Garibay Hypercoagulation Syndrome (HCC); Anticoagulation in [place] For Therapeutic Drug Therapy; Seth Car M.D. Risk Assessment Analyst Anticoagulant Treatment [facility] [phone] [place] [phone] (Work) Social History Tobacco Use [...] or relatives? How often do you attend jehovah's witness or More than 4 times per year 05/04/2022 mandaeism services? Do you belong to any clubs or Yes 05/04/2022 organizations such as jehovah's witness groups, unions, fraternal or athletic groups, or [...] at Date Recorded Female 05/03/2022 7:07 PM FIBERGLASS BOAT MAKER documented as of this encounter Progress Notes Lili Manzo R.N. - 08/14/2018 2:30 PM CST Warfarin Maintenance Nursing Protocol Goal Range 2.0-3.0 (version approved 02/24/17) Visit Type: Patient presents for Ftii-vq-Dzye visit in Anticoagulation Service. Primary reason for [...] agreeable to the plan of care yes RGLASS BOAT MAKER documented in this encounter Plan of Treatment Upcoming Encounters Date Type Specialty Care Team Description 06/22/2022 Appointment Laboratory Medicine Rusty Vee M.D. [address] [place] [phone] 06/22/2022 Diagnostic Pulmonary Medicine Rusty Vee M.D. [address] [place] [phone] 06/22/2022 Diagnostic Pulmonary Medicine Rusty Vee M.D. [address] [place] [phone] 06/22/2022 Appointment Radiology Rusty Vee M.D. [address] [place] [phone] 06/23/2022 Clinical Communication Admitting/Central Scheduling 06/28/2022 Appointment Pulmonary Medicine Rusty Vee M.D. [address] [place] [phone] 06/28/2022 Appointment Pulmonary Medicine Rusty Vee M.D. [address] [place] [phone] documented as of this encounter Procedures Procedure Name Priority Date/Time Associated Diagnosis Comme nts INR, POCT, B Routine 08/14/2018 2:44 PM Results f or this FIBERGLASS BOAT MAKER procedure are i n the results section . documented in this encounter Results INR, POCT (08/14/2018 2:44 PM FIBERGLASS BOAT MAKER) athologist Signature INR, POCT, B 2.1 08/14/2018 [facility] 2:44 PM FIBERGLASS BOAT MAKER [facility] Comment: ----ADDITIONAL INFORMATION---- Standard intensity warfarin therapeutic range: 2.0 to 3.0 ?? High intensity warfarin therapeutic rang e: 2.5 to 3.5 Specimen Anatomical Collection Method Collection Time Receive d Time (Source) Location / / Volume Laterality 08/14/2018 2:44 PM 9 2:45 FIBERGLASS BOAT MAKER PM FIBERGLASS BOAT MAKER Generic [facility] POCT ORDERABLES - DEVICE Performing Organization Address City/State/ZIP Code Phon e Number [facility]- [address] [address] [facility] documented in this encounter Visit Diagnoses Diagnosis Primary Hypercoagulation Syndrome (HCC) Monitoring For Therapeutic Drug Therapy Risk Assessment Analyst (Current) Anticoagulant Treatm ent documented in this encounter Care Teams Configuration Specialist Relationship Specialty Start Date End Date Jacki Luther P.A.-C. PCP - General Family Medicine 05/24/18 09/24/19 documented as of this encounter
--- OUTSIDE RECORDS SUMMARY | 2022-05-25 21:00 | XMS_ITS | Encounter Summary ---
:1975 Author Organization [facility] Address [address] [place] [address] Care Team Providers Name Role Phone Jacki Luther P.A.-C. Primary Care Provider Reason for Visit Reason Comments Med Refill Encounter Details Date Type Department Care Team Description 07/14/2018 Refill Department of Dermatology in Jus Lawton M.D. Med Refill [facility] rotary shear worker helper [address] [place] [phone] [place], [place] [phone] [phone] Social History Tobacco Use Types Packs/Day Years [...] or relatives? How often do you attend hoahaoism or More than 4 times per year 05/04/2022 catholic services? Do you belong to any clubs or Yes 05/04/2022 organizations such as hoahaoism groups, unions, fraternal or athletic groups, or [...] at Date Recorded Female 05/03/2022 7:07 PM INSTALLATION SUPERINTENDENT documented as of this encounter Plan of Treatment Upcoming Encounters Date Type Specialty Care Team Description 06/22/2022 Appointment Laboratory Medicine Rusty Vee M.D. [address] [place] [phone] 06/22/2022 Diagnostic Pulmonary Medicine Rusty Vee M.D. [address] [place] [phone] 06/22/2022 Diagnostic Pulmonary Medicine Rusty Vee M.D. [address] [place] [phone] 06/22/2022 Appointment Radiology Rusty Vee M.D. [address] [place] [phone] 06/23/2022 Clinical Communication Admitting/Central Scheduling 06/28/2022 Appointment Pulmonary Medicine Rusty Vee M.D. [address] [place] [phone] 06/28/2022 Appointment Pulmonary Medicine Rusty Vee M.D. [address] [place] [phone] documented as of this encounter Visit Diagnoses Not on filedocumented in this encounter Care Teams Professor Of Forest Planning Relationship Specialty Start Date End Date Jacki Luther P.A.-C. PCP - General Family Medicine 05/24/18 09/24/19 documented as of this encounter
--- OUTSIDE RECORDS SUMMARY | 2022-05-25 21:00 | XMS_ITS | Encounter Summary ---
:1975 Author Organization [facility] Address [address] [place] [address] Care Team Providers Name Role Phone Jacki Luther P.A.-C. Primary Care Provider [phone] Encounter Details Date Type Department Care Team Description 08/20/2018 Clinical Communication Department of Iris Gar [facility], [place] Rowan Larson [facility], [id number] [place] [address] [phone] (Work) [phone] Social History Tobacco Use Types Packs/Day Years [...] at Date Recorded Female 05/03/2022 7:07 PM CANVAS GOODS FABRICATOR documented as of this encounter Plan of Treatment Upcoming Encounters Date Type Specialty Care Team Description 06/22/2022 Appointment Laboratory Medicine Rusty Vee M.D. [address] [place] [phone] 06/22/2022 Diagnostic Pulmonary Medicine Rusty Vee M.D. [address] [place] [phone] 06/22/2022 Diagnostic Pulmonary Medicine Rusty Vee M.D. [address] [place] [phone] 06/22/2022 Appointment Radiology Rusty Vee M.D. [address] [place] [phone] 06/23/2022 Clinical Communication Admitting/Central Scheduling 06/28/2022 Appointment Pulmonary Medicine Rusty Vee M.D. [address] [place] [phone] 06/28/2022 Appointment Pulmonary Medicine Rusty Vee M.D. [address] [place] [phone] documented as of this encounter Visit Diagnoses Not on filedocumented in this encounter Care Teams Still Worker Helper Relationship Specialty Start Date End Date Jacki Luther P.A.-C. PCP - General Family Medicine 05/24/18 09/24/19 documented as of this encounter
--- OUTSIDE RECORDS SUMMARY | 2022-05-25 21:00 | XMS_ITS | Encounter Summary ---
:1975 Author Organization [facility] Address [address] [place] [address] Care Team Providers Name Role Phone Jacki Luther P.A.-C. Primary Care Provider Encounter Details Date Type Department Care Team Description 08/29/2018 Anticoagulation Visit Department of Marina Garibay Hypercoagulation Syndrome (HCC); Anticoagulation in [place] Thrombophilia (HCC); Rosa Car M.D. Monitoring For Therapeutic Drug Therapy; [place] [address] Chamfering Machine Operator Anticoagulant Treatment [address] [place] [address] [facility] [phone] Social History Tobacco Use Types Packs/Day Years [...] or relatives? How often do you attend yazidi or More than 4 times per year 05/04/2022 restorationism services? Do you belong to any clubs or Yes 05/04/2022 organizations such as yazidi groups, unions, fraternal or athletic groups, or [...] at Date Recorded Female 05/03/2022 7:07 PM VP INFORMATION TECHNOLOGY documented as of this encounter Progress Notes Nichole Bowers R.N. - 08/29/2018 7:30 AM CST Warfarin Maintenance [...] agreeable to the plan of care yes INFORMATION TECHNOLOGY documented in this encounter Miscellaneous Notes Addendum Note - Nichole Bowers R.N. - 08/29/2018 7:30 AM VP INFORMATION TECHNOLOGY Addended by: NICHOLE BOWERS on: 08/29/2018 09:02 AM Modules accepted: Level of Service INFORMATION TECHNOLOGY documented in this encounter Plan of Treatment Upcoming Encounters Date Type Specialty Care Team Description 06/22/2022 Appointment Laboratory Medicine Rusty Vee M.D. 200 [place] [phone] 06/22/2022 Diagnostic Pulmonary Medicine Rusty Vee M.D. [address] [place] [phone] 06/22/2022 Diagnostic Pulmonary Medicine Rusty Vee M.D. [address] [place] [phone] 06/22/2022 Appointment Radiology Rusty Vee M.D. [address] [place] [phone] 06/23/2022 Clinical Communication Admitting/Central Scheduling 06/28/2022 Appointment Pulmonary Medicine Rusty Vee M.D. [address] [place] [phone] 06/28/2022 Appointment Pulmonary Medicine Rusty Vee M.D. [address] [place] [phone] documented as of this encounter Procedures Procedure Name Priority Date/Time Associated Diagnosis Comme nts PROTHROMBIN TIME Routine 08/29/2018 7:40 AM Other Primary Resu lts for this (PT), P VP INFORMATION TECHNOLOGY Thrombophilia (HCC) procedur e are in the results section. documented in this encounter Results (ABNORMAL) PT (Prothrombin Time) with INR (08/29/2018 7:40 AM VP INFORMATION TECHNOLOGY) [facility] Method Time Signature Prothrombin 19.9 (H) 8.8 - 11.9 08/29/2018 [facility] Time, P sec 7:54 AM [facility] INR 1.9 0.9 - 1.2 08/29/2018 [facility] 7:54 AM [facility] Comment: Standard intensity warfarin therapeutic range: 2.0 to 3.0 High intensity warfarin therapeutic rang e: 2.5 to 3.5 Specimen Anatomical Collection Method Collection Time Receive d Time (Source) Location / / Volume Laterality Blood 08/29/2018 7:40 AM 9 7:42 VP INFORMATION TECHNOLOGY AM VP INFORMATION TECHNOLOGY Sridhar Garibay M.D. LAB BLOOD ADD-ON Performing Organization Address City/State/ZIP Code Phon e Number [facility]- [address] [place] [address] [facility] documented in this encounter Visit Diagnoses Diagnosis Primary Hypercoagulation Syndrome (HCC) Other Primary Thrombophilia (HCC) Monitoring For Therapeutic Drug Therapy Assisted (Current) Anticoagulant Treatm ent documented in this encounter Care Teams Forestry Contractor Relationship Specialty Start Date End Date Jacki Luther P.A.-C. PCP - General Family Medicine 05/24/18 09/24/19 documented as of this encounter
--- OUTSIDE RECORDS SUMMARY | 2022-05-25 21:00 | XMS_ITS | Encounter Summary ---
:1975 Author Organization [facility] Address [address] [place] [address] Care Team Providers Name Role Phone Jacki Luther P.A.-C. Primary Care Provider [phone] Reason for Visit Reason Comments Cerumen Impaction Left ear Appointment Request (Routine) - Closed Specialty Diagnoses / Procedures Referred By Contact Refer red To Contact Family Medicine Referral ID Status Reason Start Date Expiration Date Visits Requ ested Visits Authorized [id number] Closed 08/20/2018 08/20/2019 1 Encounter Details Date Type Department Care Team Description 08/20/2018 Office Visit Department of Family Shawn Osborn Cance led (Clinic: Seth Hathaway M.D., Ph. D. Scheduling Error) Clinic, in [address] [phone] Social History Tobacco Use Types Packs/Day Years [...] at Date Recorded Female 05/03/2022 7:07 PM EMERGENCY MANAGEMENT DIRECTOR documented as of this encounter Last Filed Vital Signs Vital Sign Reading Time Taken Comments Blood Pressure 94/61 08/20/2018 2:24 PM EMERGENCY MANAGEMENT DIRECTOR Pulse 65 08/20/2018 2:24 PM EMERGENCY MANAGEMENT DIRECTOR Temperature 36.5 ??C (97.7 ??F) 08/20/2018 2:24 PM EMERGENCY MANAGEMENT DIRECTOR Respiratory Rate 18 08/20/2018 2:24 PM EMERGENCY MANAGEMENT DIRECTOR Oxygen Saturation 93% 08/20/2018 2:24 PM EMERGENCY MANAGEMENT DIRECTOR Inhaled Oxygen Concentration - - Weight - - Height - - Body Mass Index - - documented in this encounter Plan of Treatment Upcoming Encounters Date Type Specialty Care Team Description 06/22/2022 Appointment Laboratory Medicine Rusty Vee M.D. [address] [place] [phone] 06/22/2022 Diagnostic Pulmonary Medicine Rusty Vee M.D. [address] [place] [phone] 06/22/2022 Diagnostic Pulmonary Medicine Rusty Vee M.D. [address] [place] [phone] 06/22/2022 Appointment Radiology Rusty Vee M.D. [address] [place] [phone] 06/23/2022 Clinical Communication Admitting/Central Scheduling 06/28/2022 Appointment Pulmonary Medicine Rusty Vee M.D. [address] [place] [phone] 06/28/2022 Appointment Pulmonary Medicine Rusty Vee M.D. [address] [place] [phone] documented as of this encounter Visit Diagnoses Not on filedocumented in this encounter Care Teams Acid Conditioning Worker Relationship Specialty Start Date End Date Jacki Luther P.A.-C. PCP - General Family Medicine 05/24/18 09/24/19 documented as of this encounter
--- OUTSIDE RECORDS SUMMARY | 2022-05-25 21:00 | XMS_ITS | Encounter Summary ---
:1975 Author Organization [facility] Address [address] [place] [address] Care Team Providers Name Role Phone Jacki Luther P.A.-C. Primary Care Provider [phone] Encounter Details Date Type Department Care Team Description 07/17/2018 Anticoagulation Visit Department of Hari Garibay For Therapeutic Drug Therapy; Anticoagulation in [facility], Residential Anticoagulant Treatment; Rosa Car M.D. Primary Hypercoagulation Syndrome (HCC) [facility] [address] [place] [address] Per[place], [facility] [phone] Social History Tobacco Use Types Packs/Day Years [...] at Date Recorded Female 05/03/2022 7:07 PM HAT AND CAP SEWER documented as of this encounter Plan of Treatment Upcoming Encounters Date Type Specialty Care Team Description 06/22/2022 Appointment Laboratory Medicine Rusty Vee M.D. [address] [place] [phone] 06/22/2022 Diagnostic Pulmonary Medicine Rusty Vee M.D. [address] [place] [phone] 06/22/2022 Diagnostic Pulmonary Medicine Rusty Vee M.D. [address] [place] [phone] 06/22/2022 Appointment Radiology Rusty Vee M.D. [address] [place] [phone] 06/23/2022 Clinical Communication Admitting/Central Scheduling 06/28/2022 Appointment Pulmonary Medicine Rusty Vee M.D. [address] [place] [phone] 06/28/2022 Appointment Pulmonary Rusty Mattson M.D. [address] [place] [phone] documented as of this encounter Visit Diagnoses Diagnosis Monitoring For Therapeutic Drug Therapy Residential (Current) Anticoagulant Treatm ent Primary Hypercoagulation Syndrome (HCC) documented in this encounter Care Teams Aerotriangulation Specialist Relationship Specialty Start Date End Date Jacki Luther P.A.-C. PCP - General Family Medicine 05/24/18 09/24/19 documented as of this encounter
--- OUTSIDE RECORDS SUMMARY | 2022-05-25 21:00 | XMS_ITS | Encounter Summary ---
:1975 Author Organization [facility] Address [address] [place] [address] Care Team Providers Name Role Phone Jacki Luther P.A.-C. Primary Care Provider [phone] Encounter Details Date Type Department Care Team Description 07/17/2018 Hospital Encounter Department of Jacki Luther Adult Examination Normal; Laboratory Medicine Cristhian Larson Trisomy 21 (HCC) in [id number] [place] [address] [phone] (Work) [phone] Social History Tobacco Use Types Packs/Day Years [...] at Date Recorded Female 05/03/2022 7:07 PM CLINICAL REHABILITATION LIAISON documented as of this encounter Medications at [...] Laboratory Medicine Rusty Vee M.D. [address] [place] [phone] 06/22/2022 Diagnostic Pulmonary Medicine Rusty Vee M.D. [address] [place] [phone] 06/22/2022 Diagnostic Pulmonary Medicine Rusty Vee M.D. [address] [place] [phone] 06/22/2022 Appointment Radiology Rusty Vee M.D. [address] [place] [phone] 06/23/2022 Clinical Communication Admitting/Central Scheduling 06/28/2022 Appointment Pulmonary Medicine Rusty Vee M.D. [address] [place] [phone] 06/28/2022 Appointment Pulmonary Medicine Rusty Vee M.D. [address] [place] [phone] documented as of this encounter Procedures Procedure Name Priority Date/Time Associated Diagnosis Comme nts LIPID PANEL, S Routine 07/17/2018 7:46 AM Well Adult Results for this CLINICAL REHABILITATION LIAISON Examination Normal procedure are in the results section. THYROID-STIMULATING Routine 07/17/2018 7:46 AM Well Adult Re sults for this HORMONE-SENSITIVE CLINICAL REHABILITATION LIAISON Examination No rmal procedure are in (S-TSH) Trisomy 21 (HCC) the results section. GLUCOSE, FASTING, Routine 07/17/2018 7:46 AM Well Adult Resu lts for this S/P CLINICAL REHABILITATION LIAISON Examination Normal procedure are in the results section. documented in this encounter Results (ABNORMAL) S-TSH (Thyroid-Stimulating Hormone - Sensitive) (07/17/2018 7:46 AM CLINICAL REHABILITATION LIAISON) P athologist Signature TSH, Sensitive 8.3 (H) 0.3 - 4.2 07/17/2018 [facility] mIU/L 8:54 AM [facility] Comment: Biotin has been identified by the isi borrego as a potential interfering substance. ??Higher concentr ations of biotin may be found in multivitamins, hair/nail supple ments, and workout supplements. ??If the result does not [facility] clinical observations, repeat testing after patient refrains fr om the use of supplements for at least 12 hours. Specimen Anatomical Collection Method Collection Time Receive d Time (Source) Location / / Volume Laterality Blood (Blood, 07/17/2018 7:46 AM 07/17/19 19 7:48 Venous) CLINICAL REHABILITATION LIAISON AM CLINICAL REHABILITATION LIAISON Jacki Luther P.A.-C. LAB BLOOD ADD-ON Performing Organization Address [facility] Phon e Number [place] [phone] [facility] Glucose, Fasting (07/17/2018 7:46 AM CLINICAL REHABILITATION LIAISON) P athologist Signature Glucose, 91 70 - 99 07/17/2018 [facility] Fasting, S mg/dL 8:37 AM [facility] Specimen Anatomical Collection Method Collection Time Receive d Time (Source) Location / / Volume Laterality Blood (Blood, 07/17/2018 7:46 AM 07/17/19 19 7:48 Venous) CLINICAL REHABILITATION LIAISON AM CLINICAL REHABILITATION LIAISON Jacki Luther P.A.-C. LAB BLOOD NON ADD-ON Performing Organization Address [facility] Phon e Number [place] [phone] [facility] Lipid Panel (07/17/2018 7:46 AM CLINICAL REHABILITATION LIAISON) P athologist Signature Cholesterol, 194 mg/dL 07/17/2018 [facility] Total 8:37 AM [facility] Comment: ----REFERENCE VALUE---- Desirable: < 200 Borderline high: 200 - 239 High: > or = 240 Triglycerides 127 mg/dL 07/17/2018 8:37 AM [facility] Comment: ----REFERENCE VALUE---- Normal: <150 Borderline high: 150-199 High: 200-499 Very high: > or =500 Cholesterol, HDL, S 50 >=50 mg/dL 07/17/2018 8:37 AM CLINICAL REHABILITATION LIAISON [facility] Calculated LDL 119 mg/dL 07/17/2018 8:37 AM CLINICAL REHABILITATION LIAISON [facility] Comment: ----REFERENCE VALUE---- Desirable: <100 Above Desirable: 100-129 Borderline high: 130-159 High: 160-189 Very high: > or =190 Cholesterol, Non-HDL, 144 mg/dL 07/17/2018 8:37 AM CLINICAL REHABILITATION LIAISON [facility] Comment: ----REFERENCE VALUE---- Desirable: <130 Above Desirable: 130-159 Borderline high: 160-189 High: 190-219 Very high: > or =220 Specimen Anatomical Collection Method Collection Time Receive d Time (Source) Location / / Volume Laterality Blood (Blood, 07/17/2018 7:46 AM 07/17/19 19 7:48 Venous) CLINICAL REHABILITATION LIAISON AM CLINICAL REHABILITATION LIAISON Jacki Luther P.A.-C. LAB BLOOD ADD-ON Performing Organization Address City/State/[facility] Code Phon e Number [facility]- [phone] [address] [facility] documented in this encounter Visit Diagnoses Diagnosis Well Adult Examination Normal Trisomy 21 (HCC) documented in this encounter Care Teams Pastrycook'S Assistant Relationship Specialty Start Date End Date Jacki Luther P.A.-C. PCP - General Family Medicine 05/24/18 09/24/19 documented as of this encounter
--- OUTSIDE RECORDS SUMMARY | 2022-05-25 21:00 | XMS_ITS | Encounter Summary ---
:1975 Author Organization [facility] Address [address] [place] [address] Care Team Providers Name Role Phone Jacki Luther P.A.-C. Primary Care Provider Encounter Details Date Type Department Care Team Description 07/13/2018 Hospital Encounter Department of Jacki Luther Adult Radiology in Seth Larson P.A.-C. Examination [place], [place] [address] [place] [phone] Social History Tobacco Use Types Packs/Day Years [...] or relatives? How often do you attend mormonism or More than 4 times per year 05/04/2022 zoroastrian services? Do you belong to any clubs or Yes 05/04/2022 organizations such as mormonism groups, unions, fraternal or athletic groups, or [...] at Date Recorded Female 05/03/2022 7:07 PM CUFF MAKER documented as of this encounter Medications at [...] Laboratory Medicine Rusty Vee M.D. [address] [place] [phone] 06/22/2022 Diagnostic Pulmonary Medicine Rusty Vee M.D. [address] [place] [phone] 06/22/2022 Diagnostic Pulmonary Medicine Rusty Vee M.D. [address] [place] [phone] 06/22/2022 Appointment Radiology Rusty Vee M.D. [address] [place] [phone] 06/23/2022 Clinical Communication Admitting/Central Scheduling 06/28/2022 Appointment Pulmonary Medicine Rusty Vee M.D. [address] [place] [phone] 06/28/2022 Appointment Pulmonary Medicine Rusty Vee M.D. [address] [place] [phone] documented as of this encounter Procedures Procedure Name Priority Date/Time Associated Comments Diagnosis US PELVIS RAD - Routine 07/13/2018 4:26 Well Adult Results for TRANSABDOMINAL (most inpatients PM CUFF MAKER Examination this proc edure and all Normal are in the outpatients) results section. documented in this encounter Results US Pelvis Transabdominal (07/13/2018 4:26 PM CUFF MAKER) Anatomical Region Laterality Modality Pelvis, Ultrasound RST LOS, Ultrasound ARZ LOS, Ultrasound F LA N/A Ultrasound LOS Specimen (Source) Anatomical Collection Method Collection Time Re ceived Time Location / / Volume Laterality 07/13/2018 4:26 PM CUFF MAKER Impressions 07/13/2018 4:30 PM CUFF MAKER IMPRESSION: 1. Negative for uterine or bilateral ova jabari masses. Narrative 07/13/2018 4:30 PM CUFF MAKER EXAM: US PELVIS TRANSABDOMINAL COMPARISON: Ultrasound 07/01/16 [...] Normal documented in this encounter Care Teams Internal Grinder Set Up Operator Relationship Specialty Start Date End Date Jacki Luther P.A.-C. PCP - General Family Medicine 05/24/18 09/24/19 documented as of this encounter
--- OUTSIDE RECORDS SUMMARY | 2022-05-25 21:00 | XMS_ITS | Encounter Summary ---
:1975 Author Organization [facility] Address [address] [place] [address] Care Team Providers Name Role Phone Edward Luther P.A.-C. Primary Care Provider [phone] Reason for Visit Appointment Request (Routine) - Closed Specialty Diagnoses / Procedures Referred By Contact Refer red To Contact Family Medicine Referral ID Status Reason Start Date Expiration Date Visits Requ ested Visits Authorized [id number] Closed 08/20/2018 08/20/2019 1 Encounter Details Date Type Department Care Team Description 08/20/2018 Nurse Only Department of Family Adrienne Foley M.D. [address] [place] [address] Medicine, [place] Arlyn Pereira L.P.N. Clinic, in [address] [phone] Social History Tobacco Use [...] at Date Recorded Female 05/03/2022 7:07 PM COIL STRAPPER documented as of this encounter Procedure Notes Arlyn Pereira L.PMichaelN. - 08/20/2018 3:15 PM CSTAssociated Order(s): FAM EAR WAX REMOVAL PROCEDURE Pre-Procedure Diagnose(s): Cerumen Impacted Bilateral Post-Procedure Diagnose(s): Cerumen Impacted Bilateral [facility] proc ear wax removal Date/Time: 08/20/2018 2:56 PM Performed by: ARLYN PEREIRA Authorized by: EDWARD LUTHER Post-procedure details: Complications: no apparent complications Comments: [...] her. They are agreeable to this plan. STRAPPER documented in this encounter Plan of Treatment Upcoming Encounters Date Type Specialty Care Team Description 06/22/2022 Appointment Laboratory Medicine Rusty Vee M.D. [address] [place] [phone] 06/22/2022 Diagnostic Pulmonary Medicine Rusty Vee M.D. [address] [place] [phone] 06/22/2022 Diagnostic Pulmonary Medicine Rusty Vee M.D. [address] [place] [phone] 06/22/2022 Appointment Radiology Rusty Vee M.D. [address] [place] [address] [place] [phone] 06/23/2022 Clinical Communication Admitting/Central Scheduling 06/28/2022 Appointment Pulmonary Medicine Rusty Vee M.D. [address] [place] [address] 06/28/2022 Appointment Pulmonary Medicine Rusty Vee M.D. [address] [place] [address] documented as of this encounter Procedures Procedure Name Priority Date/Time Associated Diagnosis Comme nts FAM EAR WAX REMOVAL Routine 08/20/2018 3:15 PM Cerumen Impacte d Results for this PROCEDURE COIL STRAPPER Bilateral procedure are i n the results section. documented in this encounter Results FAM proc ear wax removal (08/20/2018 3:15 PM COIL STRAPPER) Narrative [facility] - 08/20/2018 3:15 PM COIL STRAPPER Arlyn Pereira, L.P.N. ? 08/20/2018 ??3:00 PM FAM proc [...] her ears continue to bother her. T heamarilis are agreeable to this plan. Edward Luther P.A.-C. PROCEDURE/MINOR SURGICAL ORD ERABLES Performing Organization Address City/State/ZIP Code Phon e Number MM[facility] MM[facility]AL NA documented in this encounter Visit Diagnoses Diagnosis Cerumen Impacted Bilateral documented in this encounter Care Teams Independent Driver Relationship Specialty Start Date End Date Edward Luther P.A.-C. PCP - General Family Medicine 05/24/18 09/24/19 documented as of this encounter
--- OUTSIDE RECORDS SUMMARY | 2022-05-25 21:01 | XMS_ITS | Encounter Summary ---
:1975 Author Organization [facility] Address [address] [place] [address] Care Team Providers Name Role Phone Jacki Luther P.A.-C. Primary Care Provider Encounter Details Date Type Department Care Team Description 05/29/2018 Anticoagulation Visit Department of Marina Garibay Hypercoagulation Syndrome (HCC); Anticoagulation in [place] For Therapeutic Drug Therapy; Seth Car M.D. X Ray Nurse Anticoagulant Treatment [facility] [phone] [place] [phone] (Work) Social History Tobacco Use [...] at Date Recorded Female 05/03/2022 7:07 PM STRADDLE BUGGY OPERATOR documented as of this encounter Progress Notes Sjoquist, Nichole S, R.N. - 05/29/2018 3:30 PM CST Warfarin Maintenance Nursing Protocol Goal Range 2.0-3.0 (version approved 02/24/17) Visit Type: Patient presents for Yptf-xb-[id number] visit in Anticoagulation Service. Primary reason for visit: Routine f/u OR f/u per previous visit recommendations Information provided by: patient Inclusion Criteria: All inclusion criteria met. Proceeded to exclusion criteria. Exclusion Criteria: No exclusion criteria, proceeded to screening criteria. Screening Criteria: All screening criteria negative. Proceeded to maintenance warfarin dosing and follow-up Additional info: Pt denies changes, discussed with her mom who also denies changes. Previous INR was therapeutic. Today???s INR is Subtherapeutic, Causes: Unknown. Dosing and follow up recommendation: INR 1.5-1.7 [...] agreeable to the plan of care yes DDLE BUGGY OPERATOR documented in this encounter Plan of Treatment Upcoming Encounters Date Type Specialty Care Team Description 06/22/2022 Appointment Laboratory Medicine Rusty Vee M.D. [address] [place] [phone] 06/22/2022 Diagnostic Pulmonary Medicine Rusty Vee M.D. [address] [place] [phone] 06/22/2022 Diagnostic Pulmonary Medicine Rusty Vee M.D. [address] [place] [phone] 06/22/2022 Appointment Radiology Rusty Vee M.D. [address] [place] [address] 06/23/2022 Clinical Communication Admitting/Central Scheduling 06/28/2022 Appointment Pulmonary Medicine Rusty Vee M.D. [address] [place] [address] 06/28/2022 Appointment Pulmonary Medicine Rusty Vee M.D. 200 [place] [phone] documented as of this encounter Procedures Procedure Name Priority Date/Time Associated Diagnosis Comme nts INR, POCT, B Routine 05/29/2018 3:30 PM Results f or this STRADDLE BUGGY OPERATOR procedure are i n the results section . documented in this encounter Results INR, POCT (05/29/2018 3:30 PM STRADDLE BUGGY OPERATOR) P athologist Signature INR, POCT, B 1.7 05/29/2018 [facility] 3:30 PM STRADDLE BUGGY OPERATOR [facility] Comment: ----ADDITIONAL INFORMATION---- Standard intensity warfarin therapeutic range: 2.0 to 3.0 ?? High intensity warfarin therapeutic rang e: 2.5 to 3.5 Specimen Anatomical Collection Method Collection Time Receive d Time (Source) Location / / Volume Laterality 05/29/2018 3:30 PM 8 3:31 STRADDLE BUGGY OPERATOR PM STRADDLE BUGGY OPERATOR Generic [facility] POCT ORDERABLES - DEVICE Performing Organization Address City/State/[facility] Code Phon e Number [facility]- [address] [place] [phone] [facility] documented in this encounter Visit Diagnoses Diagnosis Primary Hypercoagulation Syndrome (HCC) Monitoring For Therapeutic Drug Therapy Detention (Current) Anticoagulant Treatm ent documented in this encounter Care Teams Piped Pocket Machine Operator Relationship Specialty Start Date End Date Jacki Luther P.A.-C. PCP - General Family Medicine 05/24/18 09/24/19 documented as of this encounter
--- OUTSIDE RECORDS SUMMARY | 2022-05-25 21:01 | XMS_ITS | Encounter Summary ---
:1975 Author Organization [facility] Address [address] [place] [address] Care Team Providers Name Role Phone Jacki Luther P.A.-C. Primary Care Provider Reason for Visit Reason Comments Med Refill Encounter Details Date Type Department Care Team Description 06/27/2018 Refill Department of Dermatology in Jus Lawton M.D. Med Refill [facility] rotary envelope machine operator [address] [place] [phone] [place], [place] [address] [phone] Social History Tobacco Use Types Packs/Day Years [...] More than 4 times per year 05/04/2022 buddhist services? Do you belong to any clubs [...] at Date Recorded Female 05/03/2022 7:07 PM MANAGER MARKET DEVELOPMENT documented as of this encounter Plan of Treatment Upcoming Encounters Date Type Specialty Care Team Description 06/22/2022 Appointment Laboratory Medicine Rusty Vee M.D. [address] [place] [phone] 06/22/2022 Diagnostic Pulmonary Medicine Rusty Vee M.D. [address] [place] [phone] 06/22/2022 Diagnostic Pulmonary Medicine Rusty Vee M.D. [address] [place] [phone] 06/22/2022 Appointment Radiology Rusty Vee M.D. [address] [place] [phone] 06/23/2022 Clinical Communication Admitting/Central Scheduling 06/28/2022 Appointment Pulmonary Medicine Rusty Vee M.D. [address] [place] [phone] 06/28/2022 Appointment Pulmonary Medicine Rusty Vee M.D. [address] [place] [phone] documented as of this encounter Visit Diagnoses Not on filedocumented in this encounter Care Teams Tooth Cutter Contact Wheel Relationship Specialty Start Date End Date Jacki Luther P.A.-C. PCP - General Family Medicine 05/24/18 09/24/19 documented as of this encounter
--- OUTSIDE RECORDS SUMMARY | 2022-05-25 21:01 | XMS_ITS | Encounter Summary ---
:1975 Author Organization [facility] Address [address] [place] [address] Care Team Providers Name Role Phone Sridhar [...] More than 4 times per year 05/04/2022 yarsanism services? Do you belong to any clubs [...] at Date Recorded Female 05/03/2022 7:07 PM PROOFREADER documented as of this encounter Plan of Treatment Upcoming Encounters Date Type Specialty Care Team Description 06/22/2022 Appointment Laboratory Medicine Rusty Vee M.D. 200 [place] [phone] 06/22/2022 Diagnostic Pulmonary Medicine Rusty Vee M.D. 200 [place] [phone] 06/22/2022 Diagnostic Pulmonary Medicine Rusty Vee M.D. [address] [place] [phone] 06/22/2022 Appointment Radiology Rusty Vee M.D. [address] [place] [phone] 06/23/2022 Clinical Communication Admitting/Central Scheduling 06/28/2022 Appointment Pulmonary Medicine Rusty Vee M.D. [address] [place] [phone] 06/28/2022 Appointment Pulmonary Medicine Rusty Vee M.D. [address] [place] [phone] documented as of this encounter Procedures Procedure [...] on filedocumented in this encounter Care Teams Conference Producer Relationship Specialty Start Date End Date Sridhar Garibay M.D. PCP - General 12/08/16 05/23/18 [address] [place] [address] documented as of this encounter
--- OUTSIDE RECORDS SUMMARY | 2022-05-25 21:01 | XMS_ITS | Encounter Summary ---
:1975 Author Organization [facility] Address [address] [place] [address] Care Team Providers Name Role Phone Jacki Luther P.A.-C. Primary Care Provider Encounter Details Date Type Department Care Team Description 07/13/2018 Hospital Encounter Department of Jacki Luther Mammogram Radiology in Seth Larson P.A.-C. Average Risk Patient [place], [place] [address] [place] [phone] Social History Tobacco Use Types Packs/Day Years [...] at Date Recorded Female 05/03/2022 7:07 PM CAPACITY ANALYST documented as of this encounter Medications at [...] Laboratory Medicine Rusty Vee M.D. [address] [place] [address] 06/22/2022 Diagnostic Pulmonary Medicine Rusty Vee M.D. [address] [place] [phone] 06/22/2022 Diagnostic Pulmonary Medicine Rusty Vee M.D. [address] [place] [phone] 06/22/2022 Appointment Radiology Rusty Vee M.D. [address] [place] [phone] 06/23/2022 Clinical Communication Admitting/Central Scheduling 06/28/2022 Appointment Pulmonary Medicine Rusty Vee M.D. [address] [place] [phone] 06/28/2022 Appointment Pulmonary Medicine Rusty Vee M.D. [address] [place] [phone] documented as of this encounter Procedures Procedure Name Priority Date/Time Associated Comments Diagnosis BI BREAST RAD - Routine 07/13/2018 2:49 Screening Results for this SCREENING (most inpatients PM CAPACITY ANALYST Mammogram Average proced ure are in BILATERAL and all Risk Patient the results outpatients) section. documented in this encounter Results BI Breast Screening Bilateral (07/13/2018 2:49 PM CAPACITY ANALYST) Anatomical Region Laterality Modality Breast, Breast Imaging [facility] LOS[facility] Specimen (Source) Anatomical Collection Method Collection Time Re ceived Time Location / / Volume Laterality 07/13/2018 3:36 PM CAPACITY ANALYST Impressions 07/13/2018 3:37 PM CAPACITY ANALYST IMPRESSION: ??Negative. RECOMMENDATION: ??Annual Screening Mammo gram ASSESSMENT: ??BI-RADS: 1: Negative. Narrative 07/13/2018 3:37 PM CAPACITY ANALYST EXAM: ??BI BREAST SCREENING BILATERAL Current study [...] Patient documented in this encounter Care Teams Sugar Boiler Relationship Specialty Start Date End Date Jacki Luther P.A.-C. PCP - General Family Medicine 05/24/18 09/24/19 documented as of this encounter
--- OUTSIDE RECORDS SUMMARY | 2022-05-25 21:01 | XMS_ITS | Encounter Summary ---
:1975 Author Organization [facility] Address [address] [place] [address] Care Team Providers Name Role Phone Sridhar Garibay M.D. Primary Care Provider Encounter Details Date Type Department Care Team Description 05/08/2018 Anticoagulation Visit Department of Marina Garibay Hypercoagulation Syndrome (HCC); Anticoagulation in [place] For Therapeutic Drug Therapy; Seth Car M.D. Skilled Nursing Anticoagulant Treatment [address], [facility] [phone] Social History Tobacco Use Types Packs/Day Years [...] at Date Recorded Female 05/03/2022 7:07 PM COMMUNITY ASSOCIATE documented as of this encounter Progress Notes Nichole Bowers R.N. - 05/08/2018 3:00 PM CST Warfarin Maintenance Nursing Protocol Goal Range 2.0-3.0 (version approved 02/24/17) Visit Type: Patient presents for Qvxv-rm-Ntol visit in Anticoagulation Service. Primary reason for [...] agreeable to the plan of care yes UNITY ASSOCIATE documented in this encounter Plan of Treatment Upcoming Encounters Date Type Specialty Care Team Description 06/22/2022 Appointment Laboratory Medicine Rusty Vee M.D. [address] [place] [phone] 06/22/2022 Diagnostic Pulmonary Medicine Rusty Vee M.D. [address] [place] [phone] 06/22/2022 Diagnostic Pulmonary Medicine Rusty Vee M.D. [address] [place] [phone] 06/22/2022 Appointment Radiology Rusty Vee M.D. [address] [place] [phone] 06/23/2022 Clinical Communication Admitting/Central Scheduling 06/28/2022 Appointment Pulmonary Medicine Rusty Vee M.D. [address] [place] [phone] 06/28/2022 Appointment Pulmonary Medicine Rusty Vee M.D. [address] [place] [phone] documented as of this encounter Procedures Procedure Name Priority Date/Time Associated Diagnosis Comme nts INR, POCT, B Routine 05/08/2018 3:11 PM Results f or this COMMUNITY ASSOCIATE procedure are i n the results section . documented in this encounter Results INR, POCT (05/08/2018 3:11 PM COMMUNITY ASSOCIATE) P athologist Signature INR, POCT, B 1.9 05/08/2018 [facility] 3:11 PM COMMUNITY ASSOCIATE [facility] Comment: ----ADDITIONAL INFORMATION---- Standard intensity warfarin therapeutic range: 2.0 to 3.0 ?? High intensity warfarin therapeutic rang e: 2.5 to 3.5 Specimen Anatomical Collection Method Collection Time Receive d Time (Source) Location / / Volume Laterality 05/08/2018 3:11 PM 8 3:13 COMMUNITY ASSOCIATE PM COMMUNITY ASSOCIATE Generic [facility] POCT ORDERABLES - DEVICE Performing Organization Address City/State/ZIP Code Phon e Number [facility]- [address] [place] [address] [place] documented in this encounter Visit Diagnoses Diagnosis Primary Hypercoagulation Syndrome (HCC) Monitoring For Therapeutic Drug Therapy Library Customer Service Clerk (Current) Anticoagulant Treatm ent documented in this encounter Care Teams Grainer Machine Relationship Specialty Start Date End Date Sridhar Garibay M.D. PCP - General 12/08/16 05/23/18 Morena Womack [facility] [place] [phone] documented as of this encounter
--- OUTSIDE RECORDS SUMMARY | 2022-05-25 21:01 | XMS_ITS | Encounter Summary ---
:1975 Author Organization [facility] Address [address] [place] [address] Care Team Providers Name Role Phone Sridhar Garibay M.D. Primary Care Provider Encounter Details Date Type Department Care Team Description 05/02/2018 Anticoagulation Visit Department of Marina Garibay Hypercoagulation Syndrome (HCC); Anticoagulation in [place] For Therapeutic Drug Therapy; Seth Car M.D. Firer Glost Kiln Anticoagulant Treatment [address], [facility] [phone] (Work) Social History Tobacco Use [...] or relatives? How often do you attend anglican or More than 4 times per year 05/04/2022 spiritism services? Do you belong to any clubs or Yes 05/04/2022 organizations such as anglican groups, unions, fraternal or athletic groups, or [...] at Date Recorded Female 05/03/2022 7:07 PM SATELLITE COMMUNICATIONS ENGINEER documented as of this encounter Progress Notes Lili Manzo R.N. - 05/02/2018 3:15 PM CST Warfarin Maintenance Nursing Protocol Goal Range 2.0-3.0 (version approved 02/24/17) Visit Type: Patient presents for Wvtu-yp-Ecvm visit in Anticoagulation Service. Primary reason for [...] agreeable to the plan of care yes LLITE COMMUNICATIONS ENGINEER documented in this encounter Plan of Treatment Upcoming Encounters Date Type Specialty Care Team Description 06/22/2022 Appointment Laboratory Medicine Rusty Vee M.D. [address] [place] [address] 06/22/2022 Diagnostic Pulmonary Medicine Rusty Vee M.D. [address] [place] [phone] 06/22/2022 Diagnostic Pulmonary Medicine Rusty Vee M.D. [address] [place] [phone] 06/22/2022 Appointment Radiology Rusty Vee M.D. [address] [place] [phone] 06/23/2022 Clinical Communication Admitting/Central Scheduling 06/28/2022 Appointment Pulmonary Medicine Rusty Vee M.D. [address] [place] [address] 06/28/2022 Appointment Pulmonary Medicine Rusty Vee M.D. [address] [place] [phone] documented as of this encounter Procedures Procedure Name Priority Date/Time Associated Diagnosis Comme nts INR, POCT, B Routine 05/02/2018 3:16 PM Results f or this SATELLITE COMMUNICATIONS ENGINEER procedure are i n the results section . documented in this encounter Results INR, POCT (05/02/2018 3:16 PM SATELLITE COMMUNICATIONS ENGINEER) P athologist Signature INR, POCT, B 1.7 05/02/2018 [facility] 3:16 PM SATELLITE COMMUNICATIONS ENGINEER [facility] Comment: ----ADDITIONAL INFORMATION---- Standard intensity warfarin therapeutic range: 2.0 to 3.0 ?? High intensity warfarin therapeutic rang e: 2.5 to 3.5 Specimen Anatomical Collection Method Collection Time Receive d Time (Source) Location / / Volume Laterality 05/02/2018 3:16 PM 8 3:19 SATELLITE COMMUNICATIONS ENGINEER PM SATELLITE COMMUNICATIONS ENGINEER Generic [facility] POCT ORDERABLES - DEVICE Performing Organization Address City/State/ZIP Code Phon e Number [facility]- [address] [place] [address] [facility] documented in this encounter Visit Diagnoses Diagnosis Primary Hypercoagulation Syndrome (HCC) Monitoring For Therapeutic Drug Therapy [facility] (Current) Anticoagulant Treatm ent documented in this encounter Care Teams Accounting Assistant Relationship Specialty Start Date End Date Sridhar Garibay M.D. PCP - General 12/08/16 05/23/18 EFRAÍN Roblero [phone] documented as of this encounter
--- OUTSIDE RECORDS SUMMARY | 2022-05-25 21:01 | XMS_ITS | Encounter Summary ---
:1975 Author Organization [facility] Address [address] [place] [address] Care Team Providers Name Role Phone Jacki Luther P.A.-C. Primary Care Provider Encounter Details Date Type Department Care Team Description 07/12/2018 Clinical Communication Department of Iris Gar [facility], [place] Rowan Larson [facility], [id number] [place] [address] [phone] (Work) [phone] Social History Tobacco Use Types Packs/Day Years [...] 05/04/2022 organizations such as synagogue groups, unions, fraternal or athletic groups, or [...] at Date Recorded Female 05/03/2022 7:07 PM OPERATOR TECHNICIAN documented as of this encounter Miscellaneous Notes Telephone Encounter - Jacki Luther P.A.-C. - 07/13/2018 7:17 AM OPERATOR TECHNICIAN Sent to pharmacy for patient ATOR TECHNICIAN Telephone Encounter - Arlyn Phillips L.P.N. - 07/12/2018 2:39 PM OPERATOR TECHNICIAN INFORMATION DISCUSSED I spoke with Fabiola, Zuleima's mother. She states that because Zuleima is [...] refills available. Prescription can be sent to [facility] in [place]. PLAN Disposition/Recommendation: awaiting provider recommendations Information: patient/caller able to repeat back in their own words Caller agreeable to plan of care: yes The following references were used: none ATOR TECHNICIAN Telephone Encounter - Carole Shaver - 07/12/2018 9:51 AM CST Patient's mom, Fabiola, states that her daughter was seen by Jacki Luther on 07/10/18 and she just realized she forgot to bring something up during the appointment. Please reach out to Fabiola to discuss at [phone]. Thank you ATOR TECHNICIAN documented in this encounter Plan of Treatment Upcoming Encounters Date Type Specialty Care Team Description 06/22/2022 Appointment Laboratory Medicine Rusty Vee M.D. [address] [place] [phone] 06/22/2022 Diagnostic Pulmonary Medicine Rusty Vee M.D. [address] [place] [phone] 06/22/2022 Diagnostic Pulmonary Medicine Rusty Vee M.D. [address] [place] [phone] 06/22/2022 Appointment Radiology Rusty Vee M.D. [address] [place] [phone] 06/23/2022 Clinical Communication Admitting/Central Scheduling 06/28/2022 Appointment Pulmonary Medicine Rusty Vee M.D. [address] [place] [phone] 06/28/2022 Appointment Pulmonary Medicine Rusty Vee M.D. [address] [place] [phone] documented as of this encounter Visit Diagnoses Not on filedocumented in this encounter Care Teams Warpman Relationship Specialty Start Date End Date Jacki Luther P.A.-C. PCP - General Family Medicine 05/24/18 09/24/19 documented as of this encounter
--- OUTSIDE RECORDS SUMMARY | 2022-05-25 21:01 | XMS_ITS | Encounter Summary ---
:1975 Author Organization [facility] Address [address] [place] [address] Care Team Providers Name Role Phone Sridhar Garibay M.D. Primary Care Provider Encounter Details Date Type Department Care Team Description 04/24/2018 Anticoagulation Visit Department of Marina Garibay Hypercoagulation Syndrome (HCC); Anticoagulation in [place] For Therapeutic Drug Therapy; Seth Car M.D. Deputy Head Anticoagulant Treatment [address], [facility] [phone] Social History Tobacco Use Types Packs/Day Years [...] at Date Recorded Female 05/03/2022 7:07 PM LINING CEMENTER documented as of this encounter Progress Notes Nichole Bowers R.N. - 04/24/2018 3:00 PM CDT Warfarin Maintenance Nursing Protocol Goal Range 2.0-3.0 (version approved 02/24/17) Visit Type: Patient presents for Kemn-vr-Qamg visit in Anticoagulation Service. Primary reason for [...] Laboratory Medicine Rusty Vee M.D. [address] [place] [phone] 06/22/2022 Diagnostic Pulmonary Medicine Rusty Vee M.D. [address] [place] [phone] 06/22/2022 Diagnostic Pulmonary Medicine Rusty Vee M.D. [address] [place] [phone] 06/22/2022 Appointment Radiology Rusty Vee M.D. [address] [place] [phone] 06/23/2022 Clinical Communication Admitting/Central Scheduling 06/28/2022 Appointment Pulmonary Medicine Rusty Vee M.D. [address] [place] [phone] 06/28/2022 Appointment Pulmonary Medicine Rusty Vee M.D. [address] [place] [phone] documented as of this encounter Procedures Procedure Name Priority Date/Time Associated Diagnosis Comme nts INR, POCT, B Routine 04/24/2018 3:05 PM Results f or this CDT procedure are i n the results section . documented in this encounter Results INR, POCT (04/24/2018 3:05 PM CDT) P athologist Signature INR, POCT, B 1.7 04/24/2018 [facility] 3:05 PM CDT [facility] Comment: ----ADDITIONAL INFORMATION---- Standard intensity warfarin therapeutic range: 2.0 to 3.0 ?? High intensity warfarin therapeutic rang e: 2.5 to 3.5 Specimen Anatomical Collection Method Collection Time Receive d Time (Source) Location / / Volume Laterality 04/24/2018 3:05 PM 8 3:06 CDT PM CDT Generic [facility] POCT ORDERABLES - DEVICE Performing Organization Address City/State/ZIP Code Phon e Number [facility]- [address] [place] [address] [facility] documented in this encounter Visit Diagnoses Diagnosis Primary Hypercoagulation Syndrome (HCC) Monitoring For Therapeutic Drug Therapy [facility] (Current) Anticoagulant Treatm ent documented in this encounter Care Teams Account Support Rep Relationship Specialty Start Date End Date Sridhar Garibay M.D. PCP - General 12/08/16 05/23/18 EFRAÍN Roblero [phone] documented as of this encounter
--- OUTSIDE RECORDS SUMMARY | 2022-05-25 21:01 | XMS_ITS | Encounter Summary ---
:1975 Author Organization [facility] Address [address] [place] [address] Care Team Providers Name Role Phone Sridhar Garibay M.D. Primary Care Provider Encounter Details Date Type Department Care Team Description 03/12/2018 Anticoagulation Visit Department of Marina Garibay Hypercoagulation Syndrome (HCC); Anticoagulation in [place] For Therapeutic Drug Therapy; Seth Car M.D. Fork Lift Technician Anticoagulant Treatment [facility] [address] [place] [address], [facility] [phone] (Work) Social History Tobacco Use Types Packs/Day Years Used Date Smoking Tobacco: Never Alcohol Habits Answer Date Recorded [...] More than 4 times per year 05/04/2022 [employer] services? Do you belong to any clubs [...] at Date Recorded Female 05/03/2022 7:07 PM MEAT SEAFOOD ASSOCIATE documented as of this encounter Progress Notes Nichole Bowers R.N. - 03/12/2018 3:30 PM CDT Warfarin Maintenance Nursing Protocol Goal Range 2.0-3.0 (version approved 02/24/17) Visit Type: Patient presents for Renn-lv-Jbkq visit in Anticoagulation Service. Primary reason for [...] Unknown. Dosing and follow up recommendation: INR of 4.0. Hold today, reduce dosage by 14% so 1.5mg MF and 3 mg all other days. Pt on LMWH: No Patient Visit summary provided to: Patient provided with handout of warfarin dosing and next INR appointment. patient repeats back dosing instructions and has no further questions at this time. documented in this encounter Plan of Treatment Upcoming Encounters Date Type Specialty Care Team Description 06/22/2022 Appointment Laboratory Medicine Rusty Vee M.D. [address] [place] [phone] 06/22/2022 Diagnostic Pulmonary Medicine Rusty Vee M.D. [address] [place] [phone] 06/22/2022 Diagnostic Pulmonary Medicine Rusty Vee M.D. [address] [place] [phone] 06/22/2022 Appointment Radiology Rusty Vee M.D. [address] [place] [phone] 06/23/2022 Clinical Communication Admitting/Central Scheduling 06/28/2022 Appointment Pulmonary Medicine Rusty Vee M.D. [address] [place] [phone] 06/28/2022 Appointment Pulmonary Medicine Rusty Vee M.D. [address] [place] [phone] documented as of this encounter Procedures Procedure Name Priority Date/Time Associated Diagnosis Comme nts INR, POCT, B Routine 03/12/2018 3:39 PM Results f or this CDT procedure are i n the results section . documented in this encounter Results INR, POCT (03/12/2018 3:39 PM CDT) athologist Signature INR, POCT, B 4.0 03/12/2018 [facility] 3:39 PM [facility] Comment: ----ADDITIONAL INFORMATION---- Standard intensity warfarin therapeutic range: 2.0 to 3.0 ?? High intensity warfarin therapeutic rang e: 2.5 to 3.5 Specimen Anatomical Collection Method Collection Time Receive d Time (Source) Location / / Volume Laterality 03/12/2018 3:39 PM 8 3:40 CDT PM CDT Generic [facility] POCT ORDERABLES - DEVICE Performing Organization Address City/State/ZIP Code Phon e Number [facility]- [phone] [place] [address] [place] [facility] documented in this encounter Visit Diagnoses Diagnosis Primary Hypercoagulation Syndrome (HCC) Monitoring For Therapeutic Drug Therapy Fork Lift Technician (Current) Anticoagulant Treatm ent documented in this encounter Care Teams Can Filling Machine Operator Relationship Specialty Start Date End Date Sridhar Garibay M.D. PCP - General 12/08/16 05/23/18 Morena Womack [facility] [place] [phone] documented as of this encounter
--- OUTSIDE RECORDS SUMMARY | 2022-05-25 21:01 | XMS_ITS | Encounter Summary ---
:1975 Author Organization [facility] Address [address] [place] [address] Care Team Providers Name Role Phone Sridhar Garibay M.D. Primary Care Provider Encounter Details Date Type Department Care Team Description 05/15/2018 Anticoagulation Visit Department of Marina Garibay Hypercoagulation Syndrome (HCC); Anticoagulation in [place] For Therapeutic Drug Therapy; Seth Car M.D. Intermediate Anticoagulant Treatment [address], [facility] [phone] Social History Tobacco Use Types Packs/Day Years [...] More than 4 times per year 05/04/2022 holiness services? Do you belong to any clubs [...] at Date Recorded Female 05/03/2022 7:07 PM CORN GROWER documented as of this encounter Progress Notes Mirella Chau R.N. - 05/15/2018 3:15 PM CST Warfarin Maintenance Nursing Protocol Goal Range 2.0-3.0 (version approved 02/24/17) Visit Type: Patient presents for Ywby-vi-Tqbl visit in Anticoagulation Service. Primary reason for [...] agreeable to the plan of care yes GROWER documented in this encounter Plan of Treatment Upcoming Encounters Date Type Specialty Care Team Description 06/22/2022 Appointment Laboratory Medicine Rusty Vee M.D. [address] [place] [phone] 06/22/2022 Diagnostic Pulmonary Medicine Rusyt Vee M.D. [address] [place] [phone] 06/22/2022 Diagnostic Pulmonary Medicine Rusty Vee M.D. [address] [place] [address] [phone] 06/22/2022 Appointment Radiology Rusty Vee M.D. [address] [place] [address] [phone] 06/23/2022 Clinical Communication Admitting/Central Scheduling 06/28/2022 Appointment Pulmonary Medicine Rusty Vee M.D. [address] [place] [phone] 06/28/2022 Appointment Pulmonary Medicine Rusty Vee M.D. [address] [place] [phone] documented as of this encounter Procedures Procedure Name Priority Date/Time Associated Diagnosis Comme nts INR, POCT, B Routine 05/15/2018 3:23 PM Results f or this CORN GROWER procedure are i n the results section . documented in this encounter Results INR, POCT (05/15/2018 3:23 PM CORN GROWER) P athologist Signature INR, POCT, B 2.0 05/15/2018 [facility] 3:23 PM CORN GROWER [facility] Comment: ----ADDITIONAL INFORMATION---- Standard intensity warfarin therapeutic range: 2.0 to 3.0 ?? 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 PCP - General 12/08/16 05/23/18 Kailash1 Vu OwensEFRAÍN Bautista [phone] documented as of this encounter
--- OUTSIDE RECORDS SUMMARY | 2022-05-25 21:01 | XMS_ITS | Encounter Summary ---
:1975 Author Organization [facility] Address [address] [place] [address] Care Team Providers Name Role Phone Edward Luther P.A.-C. Primary Care Provider [phone] Reason for Referral Outpatient (Routine) - Closed Specialty Diagnoses / Procedures Referred By Contact Refer red To Contact Orthopedic Surgery Diagnoses Pain Knee Right Edward Luther [facility] P.A.-C. [address] [place], [place] [address] Referral ID Status Reason Start Date Expiration Date Visits Requ ested Visits Authorized [id number] Closed 07/10/2018 07/10/2019 1 1 Scheduling Instructions Ortho internal referral panel order, renan ging before Consult visit TRICAL DEVELOPMENT ENGINEER Reason for Visit Reason Comments Annual Exam Appointment Request (Routine) - Closed Specialty Diagnoses / Procedures Referred By Contact Refer red To Contact Family Medicine Referral ID Status Reason Start Date Expiration Date Visits Requ ested Visits Authorized [id number] Closed 05/24/2018 05/24/2019 1 Encounter Details Date Type Department Care Team Description 07/10/2018 Comprehensive Visit Department of Edward Luther [facility] Adult Examination Normal (Primary Dx); Family MedicineMarsha PMichaelAMichael-Lance Trisomy 21 (HCC); [place] [address] [facility] Screening Mammogram Average Risk Patient ; Clinic, in [facility] [place] I mpacted Bilateral; [facility] [address] Pain Knee Right [address] [place] [address] BLVD (Work) [place], [place] [phone] [address] (Fax) [phone] Social History Tobacco Use Types Packs/Day Years [...] place to sleep or slept in a chcf (including now)? Sex Assigned at Date Recorded Female 05/03/2022 7:07 PM ELECTRICAL DEVELOPMENT ENGINEER documented as of this encounter Last Filed Vital Signs Vital Sign Reading Time Taken Comments Blood Pressure 105/56 07/10/2018 4:20 PM ELECTRICAL DEVELOPMENT ENGINEER Pulse 69 07/10/2018 4:20 PM ELECTRICAL DEVELOPMENT ENGINEER Temperature 36.4 ??C (97.5 ??F) 07/10/2018 4:20 PM ELECTRICAL DEVELOPMENT ENGINEER Respiratory Rate 16 07/10/2018 4:20 PM ELECTRICAL DEVELOPMENT ENGINEER Oxygen Saturation 100% 07/10/2018 4:20 PM ELECTRICAL DEVELOPMENT ENGINEER Inhaled Oxygen Concentration - - Weight 71.9 kg (158 lb 8.2 oz) 07/10/2018 4:20 PM ELECTRICAL DEVELOPMENT ENGINEER Height - - Body Mass Index 33.73 [...] Monitoring For Therapeutic Drug Therapy [Z51.81] ??? Care Home Anticoagulant Treatment [Z79.01] ??? Hyperlipidemia Mixed ??? [...] Patient lives alone and works at the [employer] at [employer]. She has never been sexually [...] if any problems develop. Edward Luther P.A.-C. TRICAL DEVELOPMENT ENGINEER documented in this encounter Procedure Notes Arlyn Pereira L.P.N. - 07/10/2018 4:30 PM CSTAssociated Order(s): EAR [...] completed successfully: no Complications: no immediate complications TRICAL DEVELOPMENT ENGINEER documented in this encounter Plan of Treatment Upcoming Encounters Date Type Specialty Care Team Description 06/22/2022 Appointment Laboratory Medicine Rusty Vee M.D. [address] [place] [phone] 06/22/2022 Diagnostic Pulmonary Medicine Rusty Vee M.D. [address] [place] [phone] 06/22/2022 Diagnostic Pulmonary Medicine Rusty Vee M.D. [address] [place] [phone] 06/22/2022 Appointment Radiology Rusty Vee M.D. [address] [place] [phone] 06/23/2022 Clinical Communication Admitting/Central Scheduling 06/28/2022 Appointment Pulmonary Medicine Rusty Vee M.D. [address] [place] [phone] 06/28/2022 Appointment Pulmonary Medicine Rusty Vee M.D. [address] [place] [phone] Scheduled Orders Name Type Priority Associated Diagnoses [...] PM Cerumen Impac nelson Results for this ELECTRICAL DEVELOPMENT ENGINEER Bilateral procedure are i n the results section. [place] RMVL IMPACT Routine 07/10/2018 4:30 PM Cerumen Impacted Res ults for this CERUMEN IRRIG UNILAT ELECTRICAL DEVELOPMENT ENGINEER Bilateral procedu re are in the results section. documented in this encounter Results (ABNORMAL) S-TSH (Thyroid-Stimulating Hormone - Sensitive) (07/17/2018 7:46 AM ELECTRICAL DEVELOPMENT ENGINEER) athologist Signature TSH, Sensitive 8.3 (H) 0.3 - 4.2 07/17/2018 [facility] mIU/L 8:54 AM ELECTRICAL DEVELOPMENT ENGINEER [facility] Comment: Biotin has been identified by the isi borrego as a potential interfering substance. ??Higher concentr ations of biotin may be found in multivitamins, hair/nail supple ments, and workout supplements. ??If the result does not [facility] clinical observations, repeat testing after patient refrains fr om the use of supplements for at least 12 hours. Specimen Anatomical Collection Method Collection Time Receive d Time (Source) Location / / Volume Laterality Blood (Blood, 07/17/2018 7:46 AM 07/17/19 7:48 Venous) ELECTRICAL DEVELOPMENT ENGINEER AM ELECTRICAL DEVELOPMENT ENGINEER Edward Luther P.A.-C. LAB BLOOD ADD-ON Performing Organization Address [facility] Phon e Number [address] [address] [facility] Glucose, Fasting (07/17/2018 7:46 AM ELECTRICAL DEVELOPMENT ENGINEER) athologist Signature Glucose, 91 70 - 99 07/17/2018 [facility] Fasting, S mg/dL 8:37 AM ELECTRICAL DEVELOPMENT ENGINEER [facility] Specimen Anatomical Collection Method Collection Time Receive d Time (Source) Location / / Volume Laterality Blood (Blood, 07/17/2018 7:46 AM 07/17/19 19 7:48 Venous) ELECTRICAL DEVELOPMENT ENGINEER AM ELECTRICAL DEVELOPMENT ENGINEER Edward PierreCMichael LAB BLOOD NON ADD-ON Performing Organization Address [facility] Phon e Number [address] [place] [address] [facility] Lipid Panel (07/17/2018 7:46 AM ELECTRICAL DEVELOPMENT ENGINEER) P athologist Signature Cholesterol, 194 mg/dL 07/17/2018 [facility] Total 8:37 AM [facility] Comment: ----REFERENCE VALUE---- Desirable: < 200 Borderline high: 200 - 239 High: > or = 240 Triglycerides 127 mg/dL 07/17/2018 8:37 AM ELECTRICAL DEVELOPMENT ENGINEER [facility] Comment: ----REFERENCE VALUE---- Normal: <150 Borderline high: 150-199 High: 200-499 Very high: > or =500 Cholesterol, HDL, S 50 >=50 mg/dL 07/17/2018 8:37 AM ELECTRICAL DEVELOPMENT ENGINEER [facility] Calculated LDL 119 mg/dL 07/17/2018 8:37 AM ELECTRICAL DEVELOPMENT ENGINEER [facility] Comment: ----REFERENCE VALUE---- Desirable: <100 Above Desirable: 100-129 Borderline high: 130-159 High: 160-189 Very high: > or =190 Cholesterol, Non-HDL, 144 mg/dL 07/17/2018 8:37 AM [facility] Comment: ----REFERENCE VALUE---- Desirable: <130 Above Desirable: 130-159 Borderline high: 160-189 High: 190-219 Very high: > or =220 Specimen Anatomical Collection Method Collection Time Receive d Time (Source) Location / / Volume Laterality Blood (Blood, 07/17/2018 7:46 AM 07/17/19 19 7:48 Venous) ELECTRICAL DEVELOPMENT ENGINEER AM ELECTRICAL DEVELOPMENT ENGINEER Edward Luther P.A.-C. LAB BLOOD ADD-ON Performing Organization Address City/State/ZIP Code Phon e Number [address] [address] [facility] BI Breast Screening Bilateral (07/13/2018 2:49 PM ELECTRICAL DEVELOPMENT ENGINEER) Anatomical Region Laterality Modality Breast, Breast Imaging RST LOS, Breast Imaging ARZ LOS, Amanda st Bilateral Mammography Imaging FLA LOS Specimen (Source) Anatomical Collection Method Collection Time Re ceived Time Location / / Volume Laterality 07/13/2018 3:36 PM ELECTRICAL DEVELOPMENT ENGINEER Impressions 07/13/2018 3:37 PM ELECTRICAL DEVELOPMENT ENGINEER IMPRESSION: ??Negative. RECOMMENDATION: ??Annual Screening Mammo gram ASSESSMENT: ??BI-RADS: 1: Negative. Narrative 07/13/2018 3:37 PM ELECTRICAL DEVELOPMENT ENGINEER EXAM: ??BI BREAST SCREENING BILATERAL Current study [...] BI-RADS: 1: Negative. Edward Luther P.A.-C. IMG BI PROCEDURES [place] RMVL IMPACT CERUMEN IRRIG UNILAT, PROCEDURE PLACEHOLDER (07/10/2018 4:30 PM ELECTRICAL DEVELOPMENT ENGINEER) Narrative MMODAL - 07/10/2018 4:30 PM ELECTRICAL DEVELOPMENT ENGINEER Arlyn Pereira, LMichaelPMichaelN. ? 07/11/2018 11:21 AM Ear cerumen removal Date/Time: 07/10/2018 5:25 PM Performed by: ARLYN PEREIRA Authorized by: EDWARD LUTHER Pre-procedural details: ??Indication: cerumen impaction ?? Procedure details: ??Location: ??Right ear and left ear ??Procedure type: irrigation ?Microscope used: no ?? Post-procedure details: ??Post-procedure ear inspection: Impact ion removal unsuccessful ??Procedure completed successfully: no ?Complications: no immediate complicat ions ?? Edward E Luther P.A.-C. PROCEDURE/MINOR SURGICAL ORD ERABLES Performing Organization Address City/State/ZIP Code Phon e Number MMODAL MMODAL NA documented in this encounter Visit Diagnoses Diagnosis Well Adult Examination Normal - Primary Trisomy 21 (HCC) Screening Mammogram Average Risk Patient Cerumen Impacted Bilateral Pain Knee Right Screening Mammogram Average Risk Patient documented in this encounter Care Teams Metal Roaster Relationship Specialty Start Date End Date dEward Luther P.A.-C. PCP - General Family Medicine 05/24/18 09/24/19 documented as of this encounter
--- OUTSIDE RECORDS SUMMARY | 2022-05-25 21:01 | XMS_ITS | Encounter Summary ---
:1975 Author Organization [facility] Address [address] [place] [address] Care Team Providers Name Role Phone Jacki Luther P.A.-C. Primary Care Provider Reason for Visit Reason Onset Date Comments Medication Question 06/13/2018 Encounter Details Date Type Department Care Team Description 06/13/2018 Clinical Communication Department of Jus Foley ication Question [place]ology in [place], [address] [address] [place], [place] [phone] (Work) [phone] Social History Tobacco Use Types Packs/Day Years [...] at Date Recorded Female 05/03/2022 7:07 PM STRATEGIC SOURCING SPECIALIST documented as of this encounter Miscellaneous Notes Telephone Encounter - Amalia Riley LMichaelP.N. - 06/13/2018 2:30 PM CST Patients mother is relaying the following information: She spoke to patients director of casework department regarding the lights for pso. The director of casework department stated just write the script for the patient and the family will get it to the etl lead to have filled TEGIC SOURCING SPECIALIST Telephone Encounter - Samantha Phillips - 06/13/2018 12:39 PM CST Patient's Mother Fabiola called and would like to talk to Dr. Foley regarding lights they talked about at Jade's last visit. Mom said she has some answers from patient's child and family services worker. Please call Fabiola at [phone] Thank you. TEGIC SOURCING SPECIALIST documented in this encounter Plan of Treatment Upcoming Encounters Date Type Specialty Care Team Description 06/22/2022 Appointment Laboratory Medicine Rusty Vee M.D. [address] [place] [phone] 06/22/2022 Diagnostic Pulmonary Medicine Rusty Vee M.D. [address] [place] [phone] 06/22/2022 Diagnostic Pulmonary Medicine Rusty Vee M.D. [address] [place] [phone] 06/22/2022 Appointment Radiology Rusty Vee M.D. [address] [place] [phone] 06/23/2022 Clinical Communication Admitting/Central Scheduling 06/28/2022 Appointment Pulmonary Medicine Rusty Vee M.D. [address] [place] [phone] 06/28/2022 Appointment Pulmonary Medicine Rusty Vee M.D. [address] [place] [address] documented as of this encounter Visit Diagnoses Not on filedocumented in this encounter Care Teams Egg Caser Relationship Specialty Start Date End Date Jacki Luther P.A.-C. PCP - General Family Medicine 05/24/18 09/24/19 documented as of this encounter
--- OUTSIDE RECORDS SUMMARY | 2022-05-25 21:01 | XMS_ITS | Encounter Summary ---
:1975 Author Organization [facility] Address [address] [place] [address] Care Team Providers Name Role Phone Jacki Luther P.A.-C. Primary Care Provider Reason for Referral Outpatient (Routine) - Closed Specialty Diagnoses / Procedures Referred By Contact Refer red To Contact Dermatology Jus Foley M.D . [facility] [address] [place] [phone] Referral ID Status Reason Start Date Expiration Date Visits Requ ested Visits Authorized [id number] Closed 06/05/2018 06/05/2019 1 1 Scheduling Instructions Psoriasis recheck in 2 months. OMIC MANAGER Reason for Visit Reason Comments Psoriasis Outpatient (Routine) - Closed Specialty Diagnoses / Procedures Referred By Contact Refer red To Contact Dermatology Jus Foley M.D . [facility] [address] [place] [phone] Referral ID Status Reason Start Date Expiration Date Visits Requ ested Visits Authorized [id number] Closed 04/23/2018 04/23/2019 1 1 Encounter Details Date Type Department Care Team Description 06/05/2018 Office Visit Department of Jus Foley, Psoriasis (Primary Dx) Dermatology in [place], [place] [address] [phone] Social History Tobacco Use Types Packs/Day Years [...] at Date Recorded Female 05/03/2022 7:07 PM ECONOMIC MANAGER documented as of this encounter Progress Notes Jus Foley M.D. 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 She is accompanied by mother and she is being seen by me for recheck of psoriasis. During my initial visit with her on 04/23/18, she reported that she initially experienced psoriasis eruptions at the age of 12. She was treating the psoriasis with [id number] Oxipor 5% coal-tar lotion and symptoms were [...] UVB phototherapy 3 times per week in [place] would be the ideal treatment. They deferred treatment as she had bowl in which was ending in mid May. However, they now prefer not to do the narrowband UVB phototherapy at [place] just given the driving distance. They are asking whether not home unit can be prescribed and I will look into it from [facility] as well as with the company given that the patient does have Down syndrome and the treatments would need to be monitored and operated by her mom. Mom will also discuss with the behavioral health case manager with good heel count knee regarding getting [...] patient/guardian of patient expressed understanding of thecontent. OMIC MANAGER documented in this encounter Plan of Treatment Upcoming Encounters Date Type Specialty Care Team Description 06/22/2022 Appointment Laboratory Medicine Rusty Vee M.D. 200 [place] [phone] 06/22/2022 Diagnostic Pulmonary Medicine Rusty Vee M.D. [address] [place] [phone] 06/22/2022 Diagnostic Pulmonary Medicine Rusty Vee M.D. 200 [place] [phone] 06/22/2022 Appointment Radiology Rusty Vee M.D. [address] [place] [phone] 06/23/2022 Clinical Communication Admitting/Central Scheduling 06/28/2022 Appointment Pulmonary Medicine Rusty Vee M.D. [address] [place] [phone] 06/28/2022 Appointment Pulmonary Medicine Rusty Vee M.D. 200 [place] [phone] Scheduled Referrals Name Type Priority Associated Order Schedule Diagnoses Dermatology office Outpatient Referral Routine Ex pected: visit (clinic) 06/05/2018 (Approximate), Expires: 06/05/2021 documented as of this encounter Visit Diagnoses Diagnosis Psoriasis - Primary documented in this encounter Care Teams Potato Pancake Frier Relationship Specialty Start Date End Date Jacki Luther P.A.-C. PCP - General Family Medicine 05/24/18 09/24/19 documented as of this encounter
--- OUTSIDE RECORDS SUMMARY | 2022-05-25 21:01 | XMS_ITS | Encounter Summary ---
:1975 Author Organization [facility] Address [address] [place] [address] Care Team Providers Name Role Phone Jacki Luther P.A.-C. Primary Care Provider Encounter Details Date Type Department Care Team Description 06/27/2018 Clinical Communication Department of Jus Foley, Dermatology in [place], [place] [address] [phone] Social History Tobacco Use Types Packs/Day Years [...] at Date Recorded Female 05/03/2022 7:07 PM LAUNDRY EQUIPMENT OPERATOR documented as of this encounter Miscellaneous Notes Telephone Encounter - Aimee Loyola V. R.N. - 06/27/2018 10:28 AM CST Resent to [facility] DRY EQUIPMENT OPERATOR Telephone Encounter - mEily Duarte - 06/27/2018 10:04 AM CST The calcipotriene ointment was sent to the wrong pharmacy. Can this be sent to [facility] in [place]. Please let Fabiola know when this is done [phone] DRY EQUIPMENT OPERATOR documented in this encounter Plan of Treatment Upcoming Encounters Date Type Specialty Care Team Description 06/22/2022 Appointment Laboratory Medicine Rusty Vee M.D. [address] [place] [phone] 06/22/2022 Diagnostic Pulmonary Medicine Rusty Vee M.D. [address] [place] [phone] 06/22/2022 Diagnostic Pulmonary Medicine Rusty Vee M.D. [address] [place] [phone] 06/22/2022 Appointment Radiology Rusty Vee M.D. [address] [place] [phone] 06/23/2022 Clinical Communication Admitting/Central Scheduling 06/28/2022 Appointment Pulmonary Medicine Rusty Vee M.D. [address] [place] [phone] 06/28/2022 Appointment Pulmonary Medicine Rusty Vee M.D. [address] [place] [phone] documented as of this encounter Visit Diagnoses Not on filedocumented in this encounter Care Teams Lead Nuclear Medicine Technologist Relationship Specialty Start Date End Date Jacki Luther P.A.-C. PCP - General Family Medicine 05/24/18 09/24/19 documented as of this encounter
--- OUTSIDE RECORDS SUMMARY | 2022-05-25 21:01 | XMS_ITS | Encounter Summary ---
:1975 Author Organization [facility] Address [address] [place] [address] Care Team Providers Name Role Phone Sridhar Garibay M.D. Primary Care Provider Reason for Referral Outpatient (Routine) - Closed Specialty Diagnoses / Procedures Referred By Contact Refer red To Contact Dermatology Jus Foley M.D . [facility] [address] [place] [address] Referral ID Status Reason Start Date Expiration Date Visits Requ ested Visits Authorized [id number] Closed 04/23/2018 04/23/2019 1 1 Scheduling Instructions Please schedule recheck psoriasis for June 05 at 3:30 p.m. Reason for Visit Reason Comments Psoriasis Appointment Request (Routine) - Closed Specialty Diagnoses / Procedures Referred By Contact Refer red To Contact Family Medicine Referral ID Status Reason Start Date Expiration Date Visits Requ ested Visits Authorized [id number] Closed 01/15/2018 01/15/2019 1 1 Encounter Details Date Type Department Care Team Description 04/23/2018 Office Visit Department of Jus Foley, Psoriasis (Primary Dx) Dermatology in [place], [place] [address] [place] [phone] Social History Tobacco Use Types Packs/Day Years [...] More than 4 times per year 05/04/2022 sikhism services? Do you belong to any clubs [...] at Date Recorded Female 05/03/2022 7:07 PM FIRST SAMPLER documented as of this encounter Consult Notes Jus Foley M.D. 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 She is accompanied by mother and she is being seen by me for the first time today for evaluation of psoriasis. The patient initially experienced psoriasis eruptions at the age of 12. She was treating the psoriasis with [id number]-[id number] Oxipor 5% coal-tar lotion and symptoms were [...] which would include three weekly visits to [facility]. The patient and mother are interested [...] Signed: simeon Scott. 04/23/2018. 3:12 PM . I, Jus Foley M.D., personally performed the [...] Appointment Laboratory Medicine Rusty Vee M.D. [address] [place] [phone] 06/22/2022 Diagnostic Pulmonary Medicine Rusty Vee M.D. [address] [place] [phone] 06/22/2022 Diagnostic Pulmonary Medicine Rusty Vee M.D. [address] [place] [phone] 06/22/2022 Appointment Radiology Rusty Vee M.D. [address] [place] [phone] 06/23/2022 Clinical Communication Admitting/Central Scheduling 06/28/2022 Appointment Pulmonary Medicine Rusty Vee M.D. [address] [place] [phone] 06/28/2022 Appointment Pulmonary Medicine Rusty Vee M.D. [address] [place] [phone] Scheduled Referrals Name Type Priority Associated Order Schedule Diagnoses Dermatology office Outpatient Referral Routine Ex pected: visit (clinic) 06/05/2018 (Approximate), Expires: 04/23/2021 documented as of this encounter Visit Diagnoses Diagnosis Psoriasis - Primary documented in this encounter Care Teams Cruise Coordinator Relationship Specialty Start Date End Date Sridhar Garibay M.D. PCP - General 12/08/16 05/23/18 [address] [place] [phone] documented as of this encounter
--- OUTSIDE RECORDS SUMMARY | 2022-05-25 21:01 | XMS_ITS | Encounter Summary ---
:1975 Author Organization [facility] Address [address] [place] [address] Care Team Providers Name Role Phone Sridhar Garibay M.D. Primary Care Provider Encounter Details Date Type Department Care Team Description 03/23/2018 Anticoagulation Visit Department of Marina Garibay Hypercoagulation Syndrome (HCC); Anticoagulation in [place] For Therapeutic Drug Therapy; Seth Car M.D. Firestopper Technician Anticoagulant Treatment [facility] [address] [place] [address], [facility] [phone] (Work) Social History Tobacco Use [...] More than 4 times per year 05/04/2022 hinduism services? Do you belong to any clubs [...] Date Recorded Female 05/03/2022 7:07 PM MANAGER KNOWLEDGE documented as of this encounter Progress Notes Lili Manzo R.N. - 03/23/2018 2:45 PM CDT Warfarin Maintenance Nursing Protocol Goal Range 2.0-3.0 (version approved 02/24/17) Visit Type: Patient presents for Uflu-rq-Qgil visit in Anticoagulation Service. Primary reason for [...] and follow up recommendation: INR 3.1-3.2 Danay M-RPh consulted. Dose: Dose ordered: See calendar, change [...] Laboratory Medicine Rusty Vee M.D. [address] [place] [address] 06/22/2022 Diagnostic Pulmonary Medicine Rusty Vee M.D. [address] [place] [phone] 06/22/2022 Diagnostic Pulmonary Medicine Rusty Vee M.D. [address] [place] [phone] 06/22/2022 Appointment Radiology Rusty Vee M.D. [address] [place] [phone] 06/23/2022 Clinical Communication Admitting/Central Scheduling 06/28/2022 Appointment Pulmonary Medicine Rusty Vee M.D. [address] [place] [address] 06/28/2022 Appointment Pulmonary Medicine Rusty Vee M.D. [address] [place] [address] documented as of this encounter Procedures Procedure Name Priority Date/Time Associated Diagnosis Comme nts INR, POCT, B Routine 03/23/2018 2:56 PM Results f or this CDT procedure are i n the results section . documented in this encounter Results INR, POCT (03/23/2018 2:56 PM CDT) athologist Signature INR, POCT, B 3.2 03/23/2018 [facility] 2:56 PM CDT [facility] Comment: ----ADDITIONAL INFORMATION---- Standard intensity warfarin therapeutic range: 2.0 to 3.0 ?? High intensity warfarin therapeutic rang e: 2.5 to 3.5 Specimen Anatomical Collection Method Collection Time Receive d Time (Source) Location / / Volume Laterality 03/23/2018 2:56 PM 8 2:58 CDT PM CDT Generic [facility] POCT ORDERABLES - DEVICE Performing Organization Address City/State/ZIP Code Phon e Number [facility]- [address] [place] [address] [facility] documented in this encounter Visit Diagnoses Diagnosis Primary Hypercoagulation Syndrome (HCC) Monitoring For Therapeutic Drug Therapy Care Home (Current) Anticoagulant Treatm ent documented in this encounter Care Teams Hall Manager Relationship Specialty Start Date End Date Sridhar Garibay M.D. PCP - General 12/08/16 05/23/18 [facility] [place] [phone] documented as of this encounter
--- OUTSIDE RECORDS SUMMARY | 2022-05-25 21:01 | XMS_ITS | Encounter Summary ---
:1975 Author Organization [facility] Address [address] [place] [address] Care Team Providers Name Role Phone Jacki Luther P.A.-C. Primary Care Provider [phone] Encounter Details Date Type Department Care Team Description 06/22/2018 Clinical Communication Department of [facility] Iris [facility] [place] [place] Rowan Larson [facility], [id number] [place] [address] [phone] (Work) [phone] Social History Tobacco Use Types Packs/Day Years [...] More than 4 times per year 05/04/2022 faith services? Do you belong to any clubs [...] at Date Recorded Female 05/03/2022 7:07 PM E M ASSEMBLER documented as of this encounter Miscellaneous Notes Telephone Encounter - Aimee Loyola R.N. - 07/02/2018 8:39 AM CST Patient mother informed. E M ASSEMBLER Telephone Encounter - Jus Foley M.D. - 07/02/2018 8:12 AM CST Renny Yu, Please schedule her for MondayAugust 20 at 1:30 p.m. for a 30 min appointment. Also let them know the date. Thank you E M ASSEMBLER Telephone Encounter - Aimee Loyola R.N. - 06/27/2018 10:50 AM CST Called Patient Mother Fabiola back and was informed that they have an opportunity to go to [place] thatweek. I informed them that we are booking out until September but if there is a spot we can fit them in sooner they would appreciate it. E M ASSEMBLER Telephone Encounter - Erica Vides - 06/22/2018 [...] Please call her mom Fabiola back at [phone] E M ASSEMBLER documented in this encounter Plan of Treatment Upcoming Encounters Date Type Specialty Care Team Description 06/22/2022 Appointment Laboratory Medicine Rusty Vee M.D. [address] [place] [address] 06/22/2022 Diagnostic Pulmonary Medicine Rusty Vee M.D. [address] [place] [phone] 06/22/2022 Diagnostic Pulmonary Medicine Rusty Vee M.D. [address] [place] [phone] 06/22/2022 Appointment Radiology Rusty Vee M.D. [address] [place] [phone] 06/23/2022 Clinical Communication Admitting/Central Scheduling 06/28/2022 Appointment Pulmonary Medicine Rusty Vee M.D. [address] [place] [phone] 06/28/2022 Appointment Pulmonary Medicine Rusty Vee M.D. [address] [place] [phone] documented as of this encounter Visit Diagnoses Not on filedocumented in this encounter Care Teams Field Consultant Relationship Specialty Start Date End Date Jacki Luther P.A.-C. PCP - General Family Medicine 05/24/18 09/24/19 documented as of this encounter
--- OUTSIDE RECORDS SUMMARY | 2022-05-25 21:01 | XMS_ITS | Encounter Summary ---
:1975 Author Organization [facility] Address [address] [place] [address] Care Team Providers Name Role Phone Sridhar [...] at Date Recorded Female 05/03/2022 7:07 PM PLEAT PATTERNMAKER documented as of this encounter Plan of Treatment Upcoming Encounters Date Type Specialty Care Team Description 06/22/2022 Appointment Laboratory Medicine Rusty Vee M.D. 200 [place] [address] 06/22/2022 Diagnostic Pulmonary Medicine Rusty Vee M.D. 200 [place] [address] 06/22/2022 Diagnostic Pulmonary Medicine Rusty Vee M.D. [address] [place] [phone] 06/22/2022 Appointment Radiology Rusty Vee M.D. [address] [place] [phone] 06/23/2022 Clinical Communication Admitting/Central Scheduling 06/28/2022 Appointment Pulmonary Medicine Rusty Vee M.D. [address] [place] [phone] 06/28/2022 Appointment Pulmonary Medicine Rusty Vee M.D. [address] [place] [phone] documented as of this encounter Procedures Procedure [...] on filedocumented in this encounter Care Teams Stationary Engineer Supervisor Relationship Specialty Start Date End Date Sridhar Garibay M.D. PCP - General 12/08/16 05/23/18 [address] [place] [address] documented as of this encounter
--- OUTSIDE RECORDS SUMMARY | 2022-05-25 21:01 | XMS_ITS | Encounter Summary ---
:1975 Author Organization [facility] Address [address] [place] [address] Care Team Providers Name Role Phone Sridhar [...] More than 4 times per year 05/04/2022 sikh services? Do you belong to any clubs [...] at Date Recorded Female 05/03/2022 7:07 PM BUSINESS MACHINE OPERATOR documented as of this encounter Plan of Treatment Upcoming Encounters Date Type Specialty Care Team Description 06/22/2022 Appointment Laboratory Medicine Rusty Vee M.D. 200 [place] [address] 06/22/2022 Diagnostic Pulmonary Medicine Rusty Vee M.D. 200 [place] [phone] 06/22/2022 Diagnostic Pulmonary Medicine Rusty Vee M.D. [address] [place] [phone] 06/22/2022 Appointment Radiology Rusty Vee M.D. [address] [place] [phone] 06/23/2022 Clinical Communication Admitting/Central Scheduling 06/28/2022 Appointment Pulmonary Medicine Rusty Vee M.D. [address] [place] [phone] 06/28/2022 Appointment Pulmonary Medicine Rusty Vee M.D. [address] [place] [address] [phone] documented as of this encounter Procedures Procedure [...] on filedocumented in this encounter Care Teams Motion Picture Set Grip Relationship Specialty Start Date End Date Sridhar Garibay M.D. PCP - General 12/08/16 05/23/18 [address] [place] [address] documented as of this encounter
--- OUTSIDE RECORDS SUMMARY | 2022-05-25 21:01 | XMS_ITS | Encounter Summary ---
:1975 Author Organization [facility] Address [address] [place] [address] Care Team Providers Name Role Phone Sridhar Garibay M.D. Primary Care Provider Encounter Details Date Type Department Care Team Description 04/06/2018 Anticoagulation Visit Department of Hari Garibay For Therapeutic Drug Therapy; Anticoagulation in Sridhar [place], Washcoat Wiper Anticoagulant Treatment; Rosa Car M.D. Primary Hypercoagulation Syndrome (HCC) [facility] [address] [place] [address] [place], [facility] [phone] Social History Tobacco Use Types Packs/Day Years [...] or relatives? How often do you attend anabaptism or More than 4 times per year 05/04/2022 shinto services? Do you belong to any clubs or Yes 05/04/2022 organizations such as anabaptism groups, unions, fraternal or athletic groups, or [...] Date Recorded Female 05/03/2022 7:07 PM RN OUTPATIENT SURGERY documented as of this encounter Plan of Treatment Upcoming Encounters Date Type Specialty Care Team Description 06/22/2022 Appointment Laboratory Medicine Rusty Vee M.D. [address] [place] [phone] 06/22/2022 Diagnostic Pulmonary Medicine Rusty Vee M.D. [address] [place] [phone] 06/22/2022 Diagnostic Pulmonary Medicine Rusty Vee M.D. [address] [place] [phone] 06/22/2022 Appointment Radiology Rusty Vee M.D. [address] [place] [phone] 06/23/2022 Clinical Communication Admitting/Central Scheduling 06/28/2022 Appointment Pulmonary Medicine Rusty Vee M.D. [address] [place] [phone] 06/28/2022 Appointment Pulmonary Medicine Rusty Vee M.D. [address] [place] [phone] documented as of this encounter Visit Diagnoses Diagnosis Monitoring For Therapeutic Drug Therapy Washcoat Wiper (Current) Anticoagulant Treatm ent Primary Hypercoagulation Syndrome (HCC) documented in this encounter Care Teams Pneumatic Riveter Relationship Specialty Start Date End Date Sridhar Garibay M.D. PCP - General 12/08/16 05/23/18 [address] [place] [address] documented as of this encounter
--- OUTSIDE RECORDS SUMMARY | 2022-05-25 21:01 | XMS_ITS | Encounter Summary ---
:1975 Author Organization [facility] Address [address] [place] [address] Care Team Providers Name Role Phone Jacki Luther P.A.-C. Primary Care Provider [phone] Encounter Details Date Type Department Care Team Description 06/14/2018 Orders Only Department of Dermatology in Jus Lawton M.D. [facility] [address] [place] [phone] (Wo rk) Social History Tobacco Use Types [...] at Date Recorded Female 05/03/2022 7:07 PM PLATEMAN documented as of this encounter Plan of Treatment Upcoming Encounters Date Type Specialty Care Team Description 06/22/2022 Appointment Laboratory Medicine Rusty Vee M.D. [address] [place] [phone] 06/22/2022 Diagnostic Pulmonary Medicine Rusty Vee M.D. [address] [place] [phone] 06/22/2022 Diagnostic Pulmonary Medicine Rusty Vee M.D. [address] [place] [phone] 06/22/2022 Appointment Radiology Rusty Vee M.D. [address] [place] [phone] 06/23/2022 Clinical Communication Admitting/Central Scheduling 06/28/2022 Appointment Pulmonary Medicine Rusty Vee M.D. [address] [place] [phone] 06/28/2022 Appointment Pulmonary Medicine Rusty Vee M.D. [address] [place] [phone] documented as of this encounter Visit Diagnoses Not on filedocumented in this encounter Care Teams Imaging Analyst Relationship Specialty Start Date End Date Jacki Luther P.A.-C. PCP - General Family Medicine 05/24/18 09/24/19 documented as of this encounter
--- OUTSIDE RECORDS SUMMARY | 2022-05-25 21:01 | XMS_ITS | Encounter Summary ---
:1975 Author Organization [facility] Address [address] [place] [address] Care Team Providers Name Role Phone Sridhar Garibay M.D. Primary Care Provider Encounter Details Date Type Department Care Team Description 04/06/2018 Anticoagulation Visit Department of Marina Garibay Hypercoagulation Syndrome (HCC); Anticoagulation in [place] For Therapeutic Drug Therapy; Seth Car M.D. Speech Language Pathologist Prn Anticoagulant Treatment [facility] [address] [place] [address], [facility] [phone] Social History Tobacco Use Types Packs/Day Years [...] More than 4 times per year 05/04/2022 mandaen services? Do you belong to any clubs [...] at Date Recorded Female 05/03/2022 7:07 PM SOIL EXPERT documented as of this encounter Progress Notes Lili Manzo R.N. - 04/06/2018 3:00 PM CDT Warfarin Maintenance Nursing Protocol Goal Range 2.0-3.0 (version approved 02/24/17) Visit Type: Patient presents for Wfin-mz-Puuw visit in Anticoagulation Service. Primary reason for [...] Laboratory Medicine Rusty Vee M.D. [address] [place] [phone] 06/22/2022 Diagnostic Pulmonary Medicine Rusty Vee M.D. [address] [place] [phone] 06/22/2022 Diagnostic Pulmonary Medicine Rusty Vee M.D. [address] [place] [phone] 06/22/2022 Appointment Radiology Rusty Vee M.D. [address] [place] [phone] 06/23/2022 Clinical Communication Admitting/Central Scheduling 06/28/2022 Appointment Pulmonary Medicine Rusty Vee M.D. [address] [place] [phone] 06/28/2022 Appointment Pulmonary Medicine Rusty Vee M.D. [address] [place] [address] documented as of this encounter Procedures Procedure Name Priority Date/Time Associated Diagnosis Comme nts INR, POCT, B Routine 04/06/2018 3:12 PM Results f or this CDT procedure are i n the results section . documented in this encounter Results INR, POCT (04/06/2018 3:12 PM CDT) athologist Signature INR, POCT, B 2.2 04/06/2018 [facility] 3:[address] [facility] Comment: ----ADDITIONAL INFORMATION---- Standard intensity warfarin therapeutic range: 2.0 to 3.0 ?? High intensity warfarin therapeutic rang e: 2.5 to 3.5 Specimen Anatomical Collection Method Collection Time Receive d Time (Source) Location / / Volume Laterality 04/06/2018 3:12 PM 8 3:14 CDT PM CDT Generic [facility] POCT ORDERABLES - DEVICE Performing Organization Address City/State/ZIP Code Phon e Number [facility]- [address] [place] [address] [facility] documented in this encounter Visit Diagnoses Diagnosis Primary Hypercoagulation Syndrome (HCC) Monitoring For Therapeutic Drug Therapy Speech Language Pathologist Prn (Current) Anticoagulant Treatm ent documented in this encounter Care Teams Digital Strategist Relationship Specialty Start Date End Date Sridhar Garibay M.D. PCP - General 12/08/16 05/23/18 [address] [place] [phone] documented as of this encounter
--- OUTSIDE RECORDS SUMMARY | 2022-05-25 21:01 | XMS_ITS | Encounter Summary ---
:1975 Author Organization [facility] Address [address] [place] [address] Care Team Providers Name Role Phone Jacki Luther P.A.-C. Primary Care Provider [phone] Encounter Details Date Type Department Care Team Description 06/20/2018 Anticoagulation Visit Department of Marina Garibay Hypercoagulation Syndrome (HCC); Anticoagulation in [place] For Therapeutic Drug Therapy; Seth Car M.D. Electric Well Logging Operator Anticoagulant Treatment [facility] [phone] [place] [phone] (Work) Social History Tobacco Use [...] at Date Recorded Female 05/03/2022 7:07 PM MONKEY TRAINER documented as of this encounter Progress Notes Lili Manzo R.N. - 06/20/2018 3:15 PM CST Warfarin Maintenance Nursing Protocol Goal Range 2.0-3.0 (version approved 02/24/17) Visit Type: Patient presents for Vjbc-if-Whuk visit in Anticoagulation Service. Primary reason for [...] agreeable to the plan of care yes EY TRAINER documented in this encounter Plan of Treatment Upcoming Encounters Date Type Specialty Care Team Description 06/22/2022 Appointment Laboratory Medicine Rusty Vee M.D. [address] [place] [address] 06/22/2022 Diagnostic Pulmonary Medicine Rusty Vee M.D. [address] [place] [phone] 06/22/2022 Diagnostic Pulmonary Medicine Rusty Vee M.D. [address] [place] [phone] 06/22/2022 Appointment Radiology Rusty Vee M.D. [address] [place] [phone] 06/23/2022 Clinical Communication Admitting/Central Scheduling 06/28/2022 Appointment Pulmonary Medicine Rusty Vee M.D. [address] [place] [address] 06/28/2022 Appointment Pulmonary Medicine Rusty Vee M.D. [address] [place] [address] documented as of this encounter Procedures Procedure Name Priority Date/Time Associated Diagnosis Comme nts INR, POCT, B Routine 06/20/2018 3:07 PM Results f or this MONKEY TRAINER procedure are i n the results section . documented in this encounter Results INR, POCT (06/20/2018 3:07 PM MONKEY TRAINER) athologist Signature INR, POCT, B 2.1 06/20/2018 [facility] 3:07 PM MONKEY TRAINER [facility] Comment: ----ADDITIONAL INFORMATION---- Standard intensity warfarin therapeutic range: 2.0 to 3.0 ?? High intensity warfarin therapeutic rang e: 2.5 to 3.5 Specimen Anatomical Collection Method Collection Time Receive d Time (Source) Location / / Volume Laterality 06/20/2018 3:07 PM 8 3:09 MONKEY TRAINER PM MONKEY TRAINER Generic [facility] POCT ORDERABLES - DEVICE Performing Organization Address City/State/ZIP Code Phon e Number [facility]- [address] [place] [address] [facility] documented in this encounter Visit Diagnoses Diagnosis Primary Hypercoagulation Syndrome (HCC) Monitoring For Therapeutic Drug Therapy Assisted (Current) Anticoagulant Treatm ent documented in this encounter Care Teams Chair Post Machine Operator Relationship Specialty Start Date End Date Jacki Luther P.A.-C. PCP - General Family Medicine 05/24/18 09/24/19 documented as of this encounter
--- OUTSIDE RECORDS SUMMARY | 2022-05-25 21:01 | XMS_ITS | Encounter Summary ---
:1975 Author Organization [facility] Address [address] [place] [address] Care Team Providers Name Role Phone Jacki Luther P.A.-C. Primary Care Provider Encounter Details Date Type Department Care Team Description 06/05/2018 Anticoagulation Visit Department of Marina Garibay Hypercoagulation Syndrome (HCC); Anticoagulation in [place] For Therapeutic Drug Therapy; Seth Car M.D. Heat Treatment Technician Anticoagulant Treatment [facility] [phone] [place] [phone] (Work) Social History Tobacco Use [...] at Date Recorded Female 05/03/2022 7:07 PM SHREDDER/GRANULATOR OPERATOR documented as of this encounter Progress Notes Sjoquist, Nichole S, R.N. - 06/05/2018 4:00 PM CST Warfarin Maintenance Nursing Protocol Goal Range 2.0-3.0 (version approved 02/24/17) Visit Type: Patient presents for Ijzy-po-Khvj visit in Anticoagulation Service. Primary reason for [...] agreeable to the plan of care yes DDER/GRANULATOR OPERATOR documented in this encounter Plan of Treatment Upcoming Encounters Date Type Specialty Care Team Description 06/22/2022 Appointment Laboratory Medicine Rusty Vee M.D. [address] [place] [phone] 06/22/2022 Diagnostic Pulmonary Medicine Rusty Vee M.D. [address] [place] [phone] 06/22/2022 Diagnostic Pulmonary Medicine Rusty Vee M.D. [address] [place] [phone] 06/22/2022 Appointment Radiology Rusty Vee M.D. [address] [place] [phone] 06/23/2022 Clinical Communication Admitting/Central Scheduling 06/28/2022 Appointment Pulmonary Medicine Rusty Vee M.D. [address] [place] [phone] 06/28/2022 Appointment Pulmonary Medicine Rusty Vee M.D. [address] [place] [address] documented as of this encounter Procedures Procedure Name Priority Date/Time Associated Diagnosis Comme nts INR, POCT, B Routine 06/05/2018 4:03 PM Results f or this SHREDDER/GRANULATOR OPERATOR procedure are i n the results section . documented in this encounter Results INR, POCT (06/05/2018 4:03 PM SHREDDER/GRANULATOR OPERATOR) P athologist Signature INR, POCT, B 2.0 06/05/2018 [facility] 4:03 PM SHREDDER/GRANULATOR OPERATOR [facility] Comment: ----ADDITIONAL INFORMATION---- Standard intensity warfarin therapeutic range: 2.0 to 3.0 ?? High intensity warfarin therapeutic rang e: 2.5 to 3.5 Specimen Anatomical Collection Method Collection Time Receive d Time (Source) Location / / Volume Laterality 06/05/2018 4:03 PM 8 4:05 SHREDDER/GRANULATOR OPERATOR PM SHREDDER/GRANULATOR OPERATOR Generic [facility] POCT ORDERABLES - DEVICE Performing Organization Address City/State/ZIP Code Phon e Number [facility]- [address] [place] [address] [facility] documented in this encounter Visit Diagnoses Diagnosis Primary Hypercoagulation Syndrome (HCC) Monitoring For Therapeutic Drug Therapy Care Home (Current) Anticoagulant Treatm ent documented in this encounter Care Teams Manager Educational Relationship Specialty Start Date End Date Jacki Luther P.A.-C. PCP - General Family Medicine 05/24/18 09/24/19 documented as of this encounter
--- OUTSIDE RECORDS SUMMARY | 2022-05-25 21:02 | XMS_ITS | Encounter Summary ---
:1975 Author Organization [facility] Address [address] [place] [address] Care Team Providers Name Role Phone Sridhar Garibay M.D. Primary Care Provider Encounter Details Date Type Department Care Team Description 08/10/2017 Hospital Encounter Department of Isrrael Garibay Therapy; Laboratory Medicine Sridhar Helton M.D. Primary Hypercoagulation Syndrome (HCC) in [facility] [address] [place], [place] [address] [facility] [address] [place], [place] [phone] (Work) [phone] Social History Tobacco Use Types Packs/Day Years [...] at Date Recorded Female 05/03/2022 7:07 PM HOOK UP DRIVER documented as of this encounter Medications at [...] Appointment Laboratory Medicine Rusty Vee M.D. 200 [place] [address] 06/22/2022 Diagnostic Pulmonary Medicine Rusty Vee M.D. 200 [place] [address] 06/22/2022 Diagnostic Pulmonary Medicine Rusty Vee M.D. [address] [place] [phone] 06/22/2022 Appointment Radiology Rusty Vee M.D. [address] [place] [phone] 06/23/2022 Clinical Communication Admitting/Central Scheduling 06/28/2022 Appointment Pulmonary Medicine Rusty Vee M.D. [address] [place] [address] 06/28/2022 Appointment Pulmonary Medicine Rusty Vee M.D. [address] [place] [address] documented as of this encounter Procedures Procedure Name Priority Date/Time Associated Diagnosis Comme nts PROTHROMBIN TIME Routine 08/10/2017 8:00 Anticoagulant T herapy Results for this (PT), P AM HOOK UP DRIVER Primary Hypercoagulation pro cedure are in Syndrome (HCC) the results section. documented in this encounter Results (ABNORMAL) PT (Prothrombin Time) with INR (08/10/2017 8:00 AM HOOK UP DRIVER) [facility] Method Time Signature Prothrombin 22.9 (H) 8.8 - 11.9 08/10/2017 [facility] Time, P sec 9:50 AM [facility] INR 2.2 0.9 - 1.2 08/10/2017 [facility] 9:50 AM [facility] Comment: Standard intensity warfarin therapeutic range: 2.0 to 3.0 High intensity warfarin therapeutic rang e: 2.5 to 3.5 Specimen Anatomical Collection Method Collection Time Receive d Time (Source) Location / / Volume Laterality Blood (Blood, 08/10/2017 8:00 AM 08/10/19 18 9:24 Venous) HOOK UP DRIVER AM HOOK UP DRIVER Sridhar Garibay M.D. LAB BLOOD ADD-ON Performing Organization Address City/State/ZIP Code Phon e Number [facility] [address] [place] [address] [facility] documented in this encounter Visit Diagnoses Diagnosis Anticoagulant Therapy Primary Hypercoagulation Syndrome (HCC) documented in this encounter Care Teams Mail Officer Relationship Specialty Start Date End Date Sridhar Garibay M.D. PCP - General 12/08/16 05/23/18 Kailash1 EFRAÍN [place] [phone] documented as of this encounter
--- OUTSIDE RECORDS SUMMARY | 2022-05-25 21:02 | XMS_ITS | Encounter Summary ---
:1975 Author Organization [facility] Address [address] [place] [address] Care Team Providers Name Role Phone Sridhar Garibay M.D. Primary Care Provider Encounter Details Date Type Department Care Team Description 02/13/2018 Anticoagulation Visit Department of Marina Garibay Hypercoagulation Syndrome (HCC); Anticoagulation in [place] [facility] Therapeutic Drug Therapy; Seth Car M.D. Long-Term Anticoagulant Treatment [facility] [address] [place] [address], [facility] [phone] Social History Tobacco Use Types Packs/Day Years [...] at Date Recorded Female 05/03/2022 7:07 PM MANAGEMENT CONSULTANT documented as of this encounter Progress Notes Nichole Bowers R.N. - 02/13/2018 3:30 PM CDT Warfarin Maintenance Nursing Protocol Goal Range 2.0-3.0 (version approved 02/24/17) Visit Type: Patient presents for Hsww-im-Vklm visit in Anticoagulation Service. Primary reason for visit: Routine f/u OR f/u per previous visit recommendations Information provided by: patient and mother Fabiola Inclusion Criteria: All inclusion criteria met. Proceeded to exclusion criteria. Exclusion Criteria: No exclusion criteria, proceeded to screening criteria. Screening Criteria: All screening criteria negative. Proceeded to maintenance warfarin dosing and follow-up Additional info: None Previous INR was supratherapeutic. Today???s INR is Supratherapeutic, Causes: Unknown. Dosing and follow up recommendation: INR of 3.1. Will reduce dosage to 5mg 2x weekly. 2.5mg all other days, f/u INR in 2 weeks. Pt on LMWH: No Patient Visit summary provided to: Patient provided with handout of warfarin dosing and next INR appointment. patient repeats back dosing instructions and has no further questions at this time. documented in this encounter Plan of Treatment Upcoming Encounters Date Type Specialty Care Team Description 06/22/2022 Appointment Laboratory Medicine Rusty Vee M.D. [address] [place] [address] 06/22/2022 Diagnostic Pulmonary Medicine Rusty Vee M.D. [address] [place] [phone] 06/22/2022 Diagnostic Pulmonary Medicine Rusty Vee M.D. [address] [place] [phone] 06/22/2022 Appointment Radiology Rusty Vee M.D. [address] [place] [phone] 06/23/2022 Clinical Communication Admitting/Central Scheduling 06/28/2022 Appointment Pulmonary Medicine Rusty Vee M.D. [address] [place] [address] 06/28/2022 Appointment Pulmonary Medicine Rusty Vee M.D. [address] [place] [address] documented as of this encounter Procedures Procedure Name Priority Date/Time Associated Diagnosis Comme nts INR, POCT, B Routine 02/13/2018 3:34 PM Results f or this CDT procedure are i n the results section . documented in this encounter Results INR, POCT (02/13/2018 3:34 PM CDT) P athologist Signature INR, POCT, B 3.1 02/13/2018 [facility] 3:34 PM CDT [facility] Comment: ----ADDITIONAL INFORMATION---- Standard intensity warfarin therapeutic range: 2.0 to 3.0 ?? High intensity warfarin therapeutic rang e: 2.5 to 3.5 Specimen Anatomical Collection Method Collection Time Receive d Time (Source) Location / / Volume Laterality 02/13/2018 3:34 PM 8 3:36 CDT PM CDT [facility] POCT ORDERABLES - DEVICE Performing Organization Address City/State/ZIP Code Phon e Number [facility] [address] [place] [address] [facility] documented in this encounter Visit Diagnoses Diagnosis Primary Hypercoagulation Syndrome (HCC) Monitoring For Therapeutic Drug Therapy Long-Term (Current) Anticoagulant Treatm ent documented in this encounter Care Teams Wooden Box Maker Relationship Specialty Start Date End Date Sridhar Garibay M.D. PCP - General 12/08/16 05/23/18 EFRAÍN Roblero [phone] documented as of this encounter
--- OUTSIDE RECORDS SUMMARY | 2022-05-25 21:02 | XMS_ITS | Encounter Summary ---
:1975 Author Organization [facility] Address [address] [place] [address] Care Team Providers Name Role Phone Sridhar Garibay M.D. Primary Care Provider Encounter Details Date Type Department Care Team Description 09/07/2017 Anticoagulation Visit Department of [place], Antic oagulant Therapy; [facility]ticoagulation in [facility] ypercoagulation Syndrome (HCC); [place], [place] R.N. Monitoring For Therapeutic Drug Therapy; [address] Anticoagulant [address]ise [place], [place] [address] [address] [place], [place] [phone] [address] Social History Tobacco Use Types Packs/Day [...] at Date Recorded Female 05/03/2022 7:07 PM TOOLROOM KEEPER documented as of this encounter Progress Notes [...] LMWH: No Patient Visit summary provided to: Fabiola, mother repeats back dosing instructions and has no furtherquestions at this time. documented in this encounter Plan of Treatment Upcoming Encounters Date Type Specialty Care Team Description 06/22/2022 Appointment Laboratory Medicine Rusty Vee M.D. 200 [place] [phone] 06/22/2022 Diagnostic Pulmonary Medicine Rusty Vee M.D. [address] [place] [phone] 06/22/2022 Diagnostic Pulmonary Medicine Rusty Vee M.D. 200 [place] [phone] 06/22/2022 Appointment Radiology Rusty Vee M.D. [address] [place] [phone] 06/23/2022 Clinical Communication Admitting/Central Scheduling 06/28/2022 Appointment Pulmonary Medicine Rusty Vee M.D. [address] [place] [phone] 06/28/2022 Appointment Pulmonary Medicine Rusty Vee M.D. [address] [place] [phone] documented as of this encounter Results (ABNORMAL) PT (Prothrombin Time) with INR (09/14/2017 8:00 AM CDT) [facility] Method Time Signature Prothrombin 33.9 (H) 8.8 - 11.9 09/14/2017 [facility] Time, P sec 10:27 AM CDT [facility] INR 3.0 0.9 - 1.2 09/14/2017 [facility] 10:27 AM CDT [facility] Comment: Standard intensity warfarin therapeutic range: [...] e Number [facility] [address] [place] [address] [place] [facility] documented in this encounter Visit Diagnoses Diagnosis Anticoagulant Therapy Primary Hypercoagulation Syndrome (HCC) Monitoring For Therapeutic Drug Therapy Usp (Current) Anticoagulant Treatm ent documented in this encounter Care Teams Sheet Tester Relationship Specialty Start Date End Date Sridhar Garibay M.D. PCP - General 12/08/16 05/23/18 [address] [place] [phone] documented as of this encounter
--- OUTSIDE RECORDS SUMMARY | 2022-05-25 21:02 | XMS_ITS | Encounter Summary ---
:1975 Author Organization [facility] Address [address] [place] [address] Care Team Providers Name Role Phone Sridhar Garibay M.D. Primary Care Provider Encounter Details Date Type Department Care Team Description 10/26/2017 Hospital Encounter Department of Haile Garibay Hypercoagulation Laboratory Medicine Sridhar Helton M.D. Syndrome (HCC) in [place], [address] [place], [place] [address] [address] [place], [place] [phone] (Work) [phone] Social History Tobacco Use Types Packs/Day Years [...] at Date Recorded Female 05/03/2022 7:07 PM FUEL ATTENDANT documented as of this encounter Medications at [...] Appointment Laboratory Medicine Rusty Vee M.D. [address] [place] [phone] 06/22/2022 Diagnostic Pulmonary Medicine Rusty Vee M.D. [address] [place] [phone] 06/22/2022 Diagnostic Pulmonary Medicine Rusty Vee M.D. [address] [place] [phone] 06/22/2022 Appointment Radiology Rusty Vee M.D. [address] [place] [phone] 06/23/2022 Clinical Communication Admitting/Central Scheduling 06/28/2022 Appointment Pulmonary Medicine Rusty Vee M.D. [address] [place] [phone] 06/28/2022 Appointment Pulmonary Medicine Rusty Vee M.D. [address] [place] [phone] documented as of this encounter Procedures Procedure Name Priority Date/Time Associated Diagnosis Comme nts PROTHROMBIN TIME Routine 10/26/2017 8:00 Primary Hypercoagulat ion Results for this (PT), P AM CDT Syndrome (HCC) procedure are in the results section. documented in this encounter Results (ABNORMAL) PT (Prothrombin Time) with INR (10/26/2017 8:00 AM CDT) [facility] Method Time Signature Prothrombin 28.1 (H) 8.8 - 11.9 10/26/2017 [facility] Time, P sec 9:55 AM CDT [facility] INR 2.5 0.9 - 1.2 10/26/2017 [facility] 9:55 AM CDT [facility] Comment: Standard intensity warfarin therapeutic range: 2.0 to 3.0 High intensity warfarin therapeutic rang e: 2.5 to 3.5 Specimen Anatomical Collection Method Collection Time Receive d Time (Source) Location / / Volume Laterality Blood (Blood, 10/26/2017 8:00 AM 10/27/19 18 9:32 Venous) CDT AM CDT Sridhar Garibay M.D. LAB BLOOD ADD-ON Performing Organization Address City/State/ZIP Code Phon e Number [facility] [address] [place] [address] [facility] documented in this encounter Visit Diagnoses Diagnosis Primary Hypercoagulation Syndrome (HCC) documented in this encounter Care Teams Pig Handler Relationship Specialty Start Date End Date Sridhar Garibay M.D. PCP - General 12/08/16 05/23/18 EFRAÍN Roblero [phone] documented as of this encounter
--- OUTSIDE RECORDS SUMMARY | 2022-05-25 21:02 | XMS_ITS | Encounter Summary ---
:1975 Author Organization [facility] Address [address] [place] [address] Care Team Providers Name Role Phone Sridhar Garibay M.D. Primary Care Provider Encounter Details Date Type Department Care Team Description 12/19/2017 Anticoagulation Visit Department of Marina Garibay Hypercoagulation Syndrome (HCC); Anticoagulation in [place] [facility]; Seth Car M.D. Care Home Anticoagulant Treatment [facility] [address] [place] [address], [facility] [phone] Social History Tobacco Use Types Packs/Day Years [...] or relatives? How often do you attend gnosticist or More than 4 times per year 05/04/2022 scientologist services? Do you belong to any clubs or Yes 05/04/2022 organizations such as gnosticist groups, unions, fraternal or athletic groups, or [...] at Date Recorded Female 05/03/2022 7:07 PM NEIGHBORHOOD WORKER documented as of this encounter Progress Notes Nichole Bowers R.N. - 12/19/2017 3:30 PM CDT Warfarin Maintenance Nursing Protocol Goal Range 2.0-3.0 (version approved 02/24/17) Visit Type: Patient presents for Vmvm-pp-Hdqs visit in Anticoagulation Service. Primary reason for [...] Laboratory Medicine Rusty Vee M.D. [address] [place] [phone] 06/22/2022 Diagnostic Pulmonary Medicine Rusty Vee M.D. [address] [place] [phone] 06/22/2022 Diagnostic Pulmonary Medicine Rusty Vee M.D. [address] [place] [phone] 06/22/2022 Appointment Radiology Rusty Vee M.D. [address] [place] [phone] 06/23/2022 Clinical Communication Admitting/Central Scheduling 06/28/2022 Appointment Pulmonary Medicine Rusty Vee M.D. [address] [place] [phone] 06/28/2022 Appointment Pulmonary Medicine Rusty Vee M.D. [address] [place] [phone] documented as of this encounter Procedures Procedure Name Priority Date/Time Associated Diagnosis Comme nts INR, POCT, B Routine 12/19/2017 3:36 PM Results f or this CDT procedure are i n the results section . documented in this encounter Results INR, POCT (12/19/2017 3:36 PM CDT) P athologist Signature INR, POCT, B 2.4 12/19/2017 [facility] 3:36 PM CDT [facility] [employer] [facility] Comment: ----ADDITIONAL INFORMATION---- Standard intensity warfarin [...] Phon e Number [facility]- [address] [place] [address] [facility] documented in this encounter Visit Diagnoses Diagnosis Primary Hypercoagulation Syndrome (HCC) Monitoring For Therapeutic Drug Therapy Care Home (Current) Anticoagulant Treatm ent documented in this encounter Care Teams Video Game Designer Relationship Specialty Start Date End Date Sridhar Garibay M.D. PCP - General 12/08/16 05/23/18 [place] [phone] documented as of this encounter
--- OUTSIDE RECORDS SUMMARY | 2022-05-25 21:02 | XMS_ITS | Encounter Summary ---
:1975 Author Organization [facility] Address [address] [place] [address] Care Team Providers Name Role Phone Sridhar Garibay M.D. Primary Care Provider Encounter Details Date Type Department Care Team Description 09/14/2017 Anticoagulation Visit [facility] [place] [facility]; Anticoagulation in [facility], Wire Machine Cutter Anticoagulant Treatment; [facility] Primary Hypercoagulation Syndrome (HCC) 701 [facility] 701 [facility] [address] [place], [place] [phone] Social History Tobacco Use Types Packs/Day [...] Date Recorded Female 05/03/2022 7:07 PM PRODUCTION ARTIST documented as of this encounter Progress Notes Love [place] R.N. - 09/14/2017 3:22 PM CDT Warfarin Maintenance [...] Laboratory Medicine Rusty Vee M.D. [address] [place] [phone] 06/22/2022 Diagnostic Pulmonary Medicine Rusty Vee M.D. [address] [place] [phone] 06/22/2022 Diagnostic Pulmonary Medicine Rusty Vee M.D. [address] [place] [phone] 06/22/2022 Appointment Radiology Rusty Vee M.D. [address] [place] [phone] 06/23/2022 Clinical Communication Admitting/Central Scheduling 06/28/2022 Appointment Pulmonary Medicine Rusty Vee M.D. [address] [place] [phone] 06/28/2022 Appointment Pulmonary Medicine Rusty Vee M.D. [address] [place] [phone] documented as of this encounter Results (ABNORMAL) PT (Prothrombin Time) with INR (09/28/2017 8:00 AM CDT) [facility] Method Time Signature Prothrombin 31.1 (H) 8.8 - 11.9 09/28/2017 [facility] Time, P sec 10:45 AM CDT [facility] INR 2.8 0.9 - 1.2 09/28/2017 [facility] 10:45 AM T [facility] Comment: Standard intensity warfarin therapeutic range: 2.0 to 3.0 High intensity warfarin therapeutic rang e: 2.5 to 3.5 Specimen Anatomical Collection Method Collection Time Receive d Time (Source) Location / / Volume Laterality Blood (Blood, 09/28/2017 8:00 AM 09/29/19 18 Venous) CDT 10:13 AM CDT Sridhar Garibay M.D. LAB BLOOD ADD-ON Performing Organization Address City/State/ZIP Code Phon e Number [facility] [address] [facility] [place] [address] [facility] documented in this encounter Visit Diagnoses Diagnosis Monitoring For Therapeutic Drug Therapy Retirement (Current) Anticoagulant Treatm ent Primary Hypercoagulation Syndrome (HCC) documented in this encounter Care Teams Manufacturing Engineer Automotive Relationship Specialty Start Date End Date Sridhar Garibay M.D. PCP - General 12/08/16 05/23/18 [address] [place] [phone] documented as of this encounter
--- OUTSIDE RECORDS SUMMARY | 2022-05-25 21:02 | XMS_ITS | Encounter Summary ---
:1975 Author Organization [facility] Address [address] [place] [address] Care Team Providers Name Role Phone Sridhar Garibay M.D. Primary Care Provider Encounter Details Date Type Department Care Team Description 09/07/2017 Hospital Encounter Department of Isrrael Garibay Therapy Laboratory Medicine Sridhar Helton M.D. 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 [address] [place] [phone] 06/22/2022 Diagnostic Pulmonary Medicine Rusty Vee M.D. [address] [place] [phone] 06/22/2022 Diagnostic Pulmonary Medicine Rusty Vee M.D. [address] [place] [phone] 06/22/2022 Appointment Radiology Rusty Vee M.D. [address] [place] [phone] 06/23/2022 Clinical Communication Admitting/Central Scheduling 06/28/2022 Appointment Pulmonary Medicine Rusty Vee M.D. [address] [place] [phone] 06/28/2022 Appointment Pulmonary Medicine Rusty Vee M.D. [address] [place] [phone] documented as of this encounter Procedures Procedure Name Priority Date/Time Associated Diagnosis Comme nts PROTHROMBIN TIME Routine 09/07/2017 8:00 AM Anticoagulant Ther apy Results for this (PT), P CDT procedure are i n the results section. documented in this encounter Results (ABNORMAL) PT (Prothrombin Time) with INR (09/07/2017 8:00 AM CDT) [facility] Method Time Signature Prothrombin 36.5 (H) 8.8 - 11.9 09/07/2017 [facility] Time, P sec 10:08 AM CDT [facility] [employer] [facility] INR 3.3 0.9 - 1.2 09/07/2017 [facility] 10:08 AM CDT [facility] Comment: Standard intensity warfarin therapeutic range: 2.0 to 3.0 High intensity warfarin therapeutic rang e: 2.5 to 3.5 Specimen Anatomical Collection Method Collection Time Receive d Time (Source) Location / / Volume Laterality Blood (Blood, 09/07/2017 8:00 AM 09/08/19 18 9:27 Venous) CDT AM CDT Sridhar Garibay M.D. LAB BLOOD ADD-ON Performing Organization Address City/State/ZIP Code Phon e Number [facility] [address] [place] [address] [place] [facility] documented in this encounter Visit Diagnoses Diagnosis Anticoagulant Therapy documented in this encounter Care Teams Senior Net Engineer Relationship Specialty Start Date End Date Sridhar Garibay M.D. PCP - General 12/08/16 05/23/18 EFRAÍN Roblero [phone] documented as of this encounter
--- OUTSIDE RECORDS SUMMARY | 2022-05-25 21:02 | XMS_ITS | Encounter Summary ---
:1975 Author Organization [facility] Address [address] [place] [address] Care Team Providers Name Role Phone Sridhar Garibay M.D. 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 [address] [place] [phone] 06/22/2022 Diagnostic Pulmonary Medicine Rusty Vee M.D. [address] [place] [phone] 06/22/2022 Diagnostic Pulmonary Medicine Rusty Vee M.D. [address] [place] [phone] 06/22/2022 Appointment Radiology Rusty Vee M.D. [address] [place] [phone] 06/23/2022 Clinical Communication Admitting/Central Scheduling 06/28/2022 Appointment Pulmonary Medicine Rusty Vee M.D. [address] [place] [phone] 06/28/2022 Appointment Pulmonary Medicine Rusty Vee M.D. [address] [place] [phone] documented as of this encounter Visit Diagnoses Not on filedocumented in this encounter Care Teams Tc Operator Relationship Specialty Start Date End Date Sridhar Garibay M.D. PCP - General 12/08/16 05/23/18 [address] [place] [phone] documented as of this encounter
--- OUTSIDE RECORDS SUMMARY | 2022-05-25 21:02 | XMS_ITS | Encounter Summary ---
:1975 Author Organization [facility] Address [address] [place] [address] Care Team Providers Name Role Phone Sridhar Garibay M.D. Primary Care Provider Encounter Details Date Type Department Care Team Description 09/14/2017 Hospital Encounter Department of Hiwot Garibay For Therapeutic Drug Therapy; Laboratory Medicine Sridhar Helton M.D. 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 [address] [place] [phone] 06/22/2022 Diagnostic Pulmonary Medicine Rusty Vee M.D. [address] [place] [phone] 06/22/2022 Diagnostic Pulmonary Medicine Rusty Vee M.D. [address] [place] [phone] 06/22/2022 Appointment Radiology Rusty Vee M.D. [address] [place] [phone] 06/23/2022 Clinical Communication Admitting/Central Scheduling 06/28/2022 Appointment Pulmonary Medicine Rusty Vee M.D. [address] [place] [address] 06/28/2022 Appointment Pulmonary Medicine Rusty Vee M.D. [address] [place] [address] documented as of this encounter Procedures Procedure Name Priority Date/Time Associated Diagnosis Comme nts PROTHROMBIN TIME Routine 09/14/2017 8:00 AM Monitoring For Res ults for this (PT), P CDT Therapeutic Drug procedure a re in Therapy the results Special Needs Bus Driver section. Anticoagulant Treatment documented in this encounter Results (ABNORMAL) PT (Prothrombin Time) with INR (09/14/2017 8:00 AM CDT) [facility] Method Time Signature Prothrombin 33.9 (H) 8.8 - 11.9 09/14/2017 [facility] Time, P sec 10:27 AM CDT [facility] INR 3.0 0.9 - 1.2 09/14/2017 [facility] 10:27 AM T [facility] Comment: Standard intensity warfarin therapeutic range: 2.0 to 3.0 High intensity warfarin therapeutic rang e: 2.5 to 3.5 Specimen Anatomical Collection Method Collection Time Receive d Time (Source) Location / / Volume Laterality Blood (Blood, 09/14/2017 8:00 AM 09/15/19 18 Venous) CDT 10:02 AM CDT Sridhar Garibay M.D. LAB BLOOD ADD-ON Performing Organization Address City/State/ZIP Code Phon e Number [facility] [address] [place] [address] [facility] documented in this encounter Visit Diagnoses Diagnosis Monitoring For Therapeutic Drug Therapy Special Needs Bus Driver (Current) Anticoagulant Treatm ent documented in this encounter Care Teams Windows Server Support Technician Relationship Specialty Start Date End Date Sridhar Garibay M.D. PCP - General 12/08/16 05/23/18 [place] [phone] documented as of this encounter
--- OUTSIDE RECORDS SUMMARY | 2022-05-25 21:02 | XMS_ITS | Encounter Summary ---
:1975 Author Organization [facility] Address [address] [place] [address] Care Team Providers Name Role Phone Sridhar Garibay M.D. Primary Care Provider Encounter Details Date Type Department Care Team Description 02/06/2018 Anticoagulation Visit Department of Marina Garibay Hypercoagulation Syndrome (HCC); Anticoagulation in [place] For Therapeutic Drug Therapy; Seth Car M.D. Usp Anticoagulant Treatment [facility] [address] [place] [address], [facility] [phone] Social History Tobacco Use Types Packs/Day Years [...] or relatives? How often do you attend shinto or More than 4 times per year 05/04/2022 worship services? 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 - 02/06/2018 3:30 PM CDT Warfarin Maintenance Nursing Protocol Goal Range 2.0-3.0 (version approved 02/24/17) Visit Type: Patient presents for Fiua-lm-Pwxo visit in Anticoagulation Service. Primary reason for visit: Routine f/u OR f/u per previous visit recommendations Information provided by: patient and David Fabiola Inclusion Criteria: All inclusion criteria met. [...] dosing and next INR appointment. patient and Albina Hernandezne repeats back dosing instructions and has no further questions at this time. documented in this encounter Plan of Treatment Upcoming Encounters Date Type Specialty Care Team Description 06/22/2022 Appointment Laboratory Medicine Rusty Vee M.D. [address] [place] [address] 06/22/2022 Diagnostic Pulmonary Medicine Rusty Vee M.D. [address] [place] [phone] 06/22/2022 Diagnostic Pulmonary Medicine Rusty Vee M.D. [address] [place] [phone] 06/22/2022 Appointment Radiology Rusty Vee M.D. [address] [place] [phone] 06/23/2022 Clinical Communication Admitting/Central Scheduling 06/28/2022 Appointment Pulmonary Medicine Rusty Vee M.D. [address] [place] [address] 06/28/2022 Appointment Pulmonary Medicine Rusty Vee M.D. [address] [place] [address] documented as of this encounter Procedures Procedure Name Priority Date/Time Associated Diagnosis Comme nts INR, POCT, B Routine 02/06/2018 3:37 PM Results f or this CDT procedure are i n the results section . documented in this encounter Results INR, POCT (02/06/2018 3:37 PM CDT) P athologist Signature INR, POCT, B 3.3 02/06/2018 [facility] 3:37 PM CDT [facility] Comment: ----ADDITIONAL INFORMATION---- Standard intensity warfarin therapeutic range: 2.0 to 3.0 ?? High intensity warfarin therapeutic rang e: 2.5 to 3.5 Specimen Anatomical Collection Method Collection Time Receive d Time (Source) Location / / Volume Laterality 02/06/2018 3:37 PM 8 3:39 CDT PM CDT Generic [facility] LAB POCT ORDERABLES - DEVICE Performing Organization Address City/State/ZIP Code Phon e Number [facility] [address] [place] [address] [place] [facility] documented in this encounter Visit Diagnoses Diagnosis Primary Hypercoagulation Syndrome (HCC) Monitoring For Therapeutic Drug Therapy Usp (Current) Anticoagulant Treatm ent documented in this encounter Care Teams Accounts Receivable Associate Relationship Specialty Start Date End Date Sridhar Garibay M.D. PCP - General 12/08/16 05/23/18 [place] [phone] documented as of this encounter
--- OUTSIDE RECORDS SUMMARY | 2022-05-25 21:02 | XMS_ITS | Encounter Summary ---
:1975 Author Organization [facility] Address [address] [place] [address] Care Team Providers Name Role Phone Sridhar Garibay M.D. Primary Care Provider Encounter Details Date Type Department Care Team Description 08/10/2017 Anticoagulation Visit Department of Holes, Antic oagulant Therapy; Anticoagulation in [facility] H ypercoagulation Syndrome (HCC) [place], [place] RN [address] [place], [place] [address] [place], [place] [phone] [address] Social History Tobacco Use Types Packs/Day [...] or relatives? How often do you attend pentecostal or More than 4 times per year 05/04/2022 methodist services? 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 - 08/10/2017 9:59 AM CST Warfarin Maintenance Nursing Protocol Goal Range 2.0-3.0 (version approved 02/24/17) Visit Type: Telephone visit today. Primary reason for visit: Routine f/u OR f/u per previous visit recommendations Information provided by: Fabiola Heaton Inclusion Criteria: All inclusion criteria met. Proceeded [...] has no further questions at this time. ER CHEMIST documented in this encounter Plan of Treatment Upcoming Encounters Date Type Specialty Care Team Description 06/22/2022 Appointment Laboratory Medicine Rusty Vee M.D. [address] [place] [address] 06/22/2022 Diagnostic Pulmonary Medicine Rusty Vee M.D. [address] [place] [phone] 06/22/2022 Diagnostic Pulmonary Medicine Rusty Vee M.D. [address] [place] [address] 06/22/2022 Appointment Radiology Rusty Vee M.D. [address] [place] [address] 06/23/2022 Clinical Communication Admitting/Central Scheduling 06/28/2022 Appointment Pulmonary Medicine Rusty Vee M.D. [address] [place] [address] 06/28/2022 Appointment Pulmonary Medicine Rusty Vee M.D. [address] [place] [address] documented as of this encounter Results (ABNORMAL) PT (Prothrombin Time) with INR (09/07/2017 8:00 AM CDT) [facility] Method Time Signature Prothrombin 36.5 (H) 8.8 - 11.9 09/07/2017 [facility] Time, P sec 10:08 AM CDT [facility] INR 3.3 0.9 - 1.2 09/07/2017 [facility] 10:08 AM CDT [facility] Comment: Standard intensity warfarin therapeutic [...] e Number [facility] [address] [place] [address] [place] [facility] documented in this encounter Visit Diagnoses Diagnosis Anticoagulant Therapy Primary Hypercoagulation Syndrome (HCC) documented in this encounter Care Teams Manufacturing Team Leader Relationship Specialty Start Date End Date Sridhar Garibay M.D. PCP - General 12/08/16 05/23/18 [address] [place] [phone] documented as of this encounter
--- OUTSIDE RECORDS SUMMARY | 2022-05-25 21:02 | XMS_ITS | Encounter Summary ---
:1975 Author Organization [facility] Address [address] [place] [address] Care Team Providers Name Role Phone Sridhar Garibay M.D. Primary Care Provider Encounter Details Date Type Department Care Team Description 09/28/2017 Anticoagulation Visit [facility] For [facility] Therapy; Anticoagulation in [facility], Stopperer Assembler Anticoagulant Treatment; [facility] Primary Hypercoagulation Syndrome (HCC) 701 [facility] 701 [facility] [address] [place], [place] [phone] Social History Tobacco Use Types Packs/Day [...] More than 4 times per year 05/04/2022 rastafarian services? 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 - 09/28/2017 10:52 AM CDT Warfarin Maintenance Nursing Protocol Goal Range 2.0-3.0 (version approved 02/24/17) Visit Type: Telephone visit today. Primary reason for visit: Routine f/u OR f/u per previous visit recommendations Information provided by: patient and caregiver Fabiola Hernandez Inclusion Criteria: All inclusion criteria met. Proceeded [...] Laboratory Medicine Rusty Vee M.D. [address] [place] [phone] 06/22/2022 Diagnostic Pulmonary Medicine Rusty Vee M.D. [address] [place] [phone] 06/22/2022 Diagnostic Pulmonary Medicine Rusty Vee M.D. [address] [place] [phone] 06/22/2022 Appointment Radiology Rusty Vee M.D. [address] [place] [phone] 06/23/2022 Clinical Communication Admitting/Central Scheduling 06/28/2022 Appointment Pulmonary Medicine Rusty Vee M.D. [address] [place] [phone] 06/28/2022 Appointment Pulmonary Medicine Rusty Vee M.D. [address] [place] [phone] documented as of this encounter Results (ABNORMAL) PT (Prothrombin Time) with INR (10/26/2017 8:00 AM CDT) [facility] Method Time Signature Prothrombin 28.1 (H) 8.8 - 11.9 10/26/2017 [facility] Time, P sec 9:55 AM CDT [facility] 2.5 0.9 - 1.2 10/26/2017 [facility] 9:55 AM T [facility] Comment: Standard intensity warfarin therapeutic range: 2.0 to 3.0 High intensity warfarin therapeutic rang e: 2.5 to 3.5 Specimen Anatomical Collection Method Collection Time Receive d Time (Source) Location / / Volume Laterality Blood (Blood, 10/26/2017 8:00 AM 10/27/19 18 9:32 Venous) CDT AM CDT Sridhar Garibay M.D. LAB BLOOD ADD-ON Performing Organization Address City/State/ZIP Code Phon e Number [facility] [address] [place] [address] [place] [facility] documented in this encounter Visit Diagnoses Diagnosis Monitoring For Therapeutic Drug Therapy Stopperer Assembler (Current) Anticoagulant Treatm ent Primary Hypercoagulation Syndrome (HCC) documented in this encounter Care Teams Manager Project Relationship Specialty Start Date End Date Sridhar Garibay M.D. PCP - General 12/08/16 05/23/18 [place] [phone] documented as of this encounter
--- OUTSIDE RECORDS SUMMARY | 2022-05-25 21:02 | XMS_ITS | Encounter Summary ---
:1975 Author Organization [facility] Address [address] [place] [address] Care Team Providers Name Role Phone Sridhar Garibay M.D. Primary Care Provider Encounter Details Date Type Department Care Team Description 09/28/2017 Hospital Encounter Department of Haile Garibay Hypercoagulation Laboratory Medicine Sridhar Helton M.D. 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 200 [place] [address] 06/22/2022 Diagnostic Pulmonary Medicine Rusty Vee M.D. 200 [place] [address] 06/22/2022 Diagnostic Pulmonary Medicine Rusty Vee M.D. 200 [place] [phone] 06/22/2022 Appointment Radiology Rusty Vee M.D. [address] [place] [phone] 06/23/2022 Clinical Communication Admitting/Central Scheduling 06/28/2022 Appointment Pulmonary Medicine Rusty Vee M.D. [address] [place] [address] 06/28/2022 Appointment Pulmonary Medicine Rusty Vee M.D. [address] [place] [address] documented as of this encounter Procedures Procedure Name Priority Date/Time Associated Diagnosis Comme nts PROTHROMBIN TIME Routine 09/28/2017 8:00 Primary Hypercoagulat ion Results for this (PT), P AM CDT Syndrome (HCC) procedure are in the results section. documented in this encounter Results (ABNORMAL) PT (Prothrombin Time) with INR (09/28/2017 8:00 AM CDT) [facility] Method Time Signature Prothrombin 31.1 (H) 8.8 - 11.9 09/28/2017 [facility] Time, P sec 10:[address] [facility] INR 2.8 0.9 - 1.2 09/28/2017 [facility] 10:[address] [facility] Comment: Standard intensity warfarin therapeutic range: 2.0 to 3.0 High intensity warfarin therapeutic rang e: 2.5 to 3.5 Specimen Anatomical Collection Method Collection Time Receive d Time (Source) Location / / Volume Laterality Blood (Blood, 09/28/2017 8:00 AM 09/29/19 18 Venous) CDT 10:13 AM CDT Sridhar Garibay M.D. LAB BLOOD ADD-ON Performing Organization Address City/State/ZIP Code Phon e Number [facility] [address] [address] [place] [facility] documented in this encounter Visit Diagnoses Diagnosis Primary Hypercoagulation Syndrome (HCC) documented in this encounter Care Teams Music Librarian Relationship Specialty Start Date End Date Sridhar Garibay M.D. PCP - General 12/08/16 05/23/18 [place] [phone] documented as of this encounter
--- OUTSIDE RECORDS SUMMARY | 2022-05-25 21:02 | XMS_ITS | Encounter Summary ---
:1975 Author Organization [facility] Address [address] [place] [address] Care Team Providers Name Role Phone Sridhar Garibay M.D. Primary Care Provider Reason for Referral Outpatient (Routine) - Closed Specialty Diagnoses / Procedures Referred By Referred To Contact Contact Hematology / Diagnoses Primary Hypercoagulation Syndrome (HCC) Monitoring For Therapeutic Drug Therapy [facility] (Current) Anticoagulant Treatment Sridhar Garibay M.D. [address] [place] [phone] Referral ID Status Reason Start Date Expiration Date Visits V isits Requested Authorized [id number] Closed Specialty 12/06/2017 12/06/2018 1 1 Services Required Encounter Details Date Type Department Care Team Description 12/05/2017 Anticoagulation Visit Department of Marina Garibay Hypercoagulation Syndrome (HCC); Anticoagulation in [place] For Therapeutic Drug Therapy; Seth Car M.D. Payroll Benefits Clerk Anticoagulant Treatment [place] [address] [place] [phone] Social History Tobacco Use Types Packs/Day Years [...] More than 4 times per year 05/04/2022 christian services? 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 - 12/05/2017 3:45 PM CDT Warfarin Maintenance Nursing Protocol Goal Range 2.0-3.0 (version approved 02/24/17) Visit Type: Patient presents for Tgwy-ey-Uzxk visit in Anticoagulation Service. Primary reason for [...] Appointment Laboratory Medicine Rusty Vee M.D. [address] [place] [phone] 06/22/2022 Diagnostic Pulmonary Medicine Rusty Vee M.D. [address] [place] [phone] 06/22/2022 Diagnostic Pulmonary Medicine Rusty Vee M.D. [address] [place] [phone] 06/22/2022 Appointment Radiology Rusty Vee M.D. [address] [place] [phone] 06/23/2022 Clinical Communication Admitting/Central Scheduling 06/28/2022 Appointment Pulmonary Medicine Rusty Vee M.D. [address] [place] [phone] 06/28/2022 Appointment Pulmonary Medicine Rusty Vee M.D. [address] [place] [phone] Scheduled Referrals Name Type Priority Associated Diagnoses Order S chedule Anticoagulation Outpatient Routine Primary Ordered: monitoring consult Referral Hypercoagulation 12/06 (clinic) Syndrome (HCC) Monitoring For Therapeutic Drug Therapy Payroll Benefits Clerk Anticoagulant Treatment documented as of this encounter Procedures Procedure Name Priority Date/Time Associated Diagnosis Comme nts INR, POCT, B Routine 12/05/2017 3:36 PM Results f or this CDT procedure are i n the results section . documented in this encounter Results INR, POCT (12/05/2017 3:36 PM CDT) P athologist Signature INR, POCT, B 1.6 12/05/2017 [facility] 3:36 PM CDT [facility] [place] [facility] Comment: ----ADDITIONAL INFORMATION---- Standard intensity warfarin therapeutic range: 2.0 to 3.0 ?? High intensity warfarin therapeutic rang e: 2.5 to 3.5 Specimen Anatomical Collection Method Collection Time Receive d Time (Source) Location / / Volume Laterality 12/05/2017 3:36 PM 8 3:42 CDT PM CDT Generic [facility] LAB POCT ORDERABLES - DEVICE Performing Organization Address City/State/[facility] Code Phon e Number [facility] [id number] [place], [place] [address] [address] [facility] documented in this encounter Visit Diagnoses Diagnosis Primary Hypercoagulation Syndrome (HCC) Monitoring For Therapeutic Drug Therapy [facility] (Current) Anticoagulant Treatm ent documented in this encounter Care Teams Tubular Splitting Machine Tender Relationship Specialty Start Date End Date Sridhar Garibay M.D. PCP - General 12/08/16 05/23/18 [address] [place] [phone] documented as of this encounter
--- OUTSIDE RECORDS SUMMARY | 2022-05-25 21:02 | XMS_ITS | Encounter Summary ---
:1975 Author Organization [facility] Address [address] [place] [address] Care Team Providers Name Role Phone Sridhar Garibay M.D. Primary Care Provider Encounter Details Date Type Department Care Team Description 12/07/2017 Orders Only Department of Family Sridhar Garibay rlipidemia (Primary Dx); Medicine, Yovanny Helton M.D. Screening Mammogram [facility] Risk Patient [facility], in [place], [address] [place], [place] 701 [facility] [address] [place], [place] [phone] (Work) [phone] Social History Tobacco Use Types Packs/Day Years [...] More than 4 times per year 05/04/2022 mormon services? 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 [address] [place] [phone] 06/22/2022 Diagnostic Pulmonary Medicine Rusty Vee M.D. [address] [place] [phone] 06/22/2022 Diagnostic Pulmonary Medicine Rusty Vee M.D. [address] [place] [phone] 06/22/2022 Appointment Radiology Rusty Vee M.D. [address] [place] [phone] 06/23/2022 Clinical Communication Admitting/Central Scheduling 06/28/2022 Appointment Pulmonary Medicine Rusty Vee M.D. [address] [place] [phone] 06/28/2022 Appointment Pulmonary Medicine Rusty Vee M.D. [address] [place] [phone] documented as of this encounter Visit Diagnoses Diagnosis Hyperlipidemia - Primary Screening Mammogram Average Risk Patient documented in this encounter Care Teams Laborer Relationship Specialty Start Date End Date Sridhar Garibay M.D. PCP - General 12/08/16 05/23/18 [place] [phone] documented as of this encounter
--- OUTSIDE RECORDS SUMMARY | 2022-05-25 21:02 | XMS_ITS | Encounter Summary ---
:1975 Author Organization [facility] Address [address] [place] [address] Care Team Providers Name Role Phone Sridhar Garibay M.D. Primary Care Provider Encounter Details Date Type Department Care Team Description 11/27/2017 Anticoagulation Visit Department of Marina Gairbay Hypercoagulation Syndrome (HCC); Anticoagulation in [place] For Therapeutic Drug Therapy; Seth Car M.D. Care Home Anticoagulant Treatment [facility] [address] [place] [address], [facility] [phone] Social History Tobacco Use Types Packs/Day Years [...] or relatives? How often do you attend lutheran or More than 4 times per year 05/04/2022 confucianism services? Do you belong to any clubs or Yes 05/04/2022 organizations such as lutheran groups, unions, fraternal or athletic groups, or [...] at Date Recorded Female 05/03/2022 7:07 PM SPEECH LANG PATH documented as of this encounter Progress Notes Nichole Bowers R.N. - 11/27/2017 3:45 PM CDT Warfarin Maintenance Nursing Protocol Goal Range 2.0-3.0 (version approved 02/24/17) Visit Type: Patient presents for Kdww-jb-Vqbh visit in Anticoagulation Service. Primary reason for visit: Routine f/u OR f/u per previous visit recommendations Information provided by: patient and mother Fabiola Inclusion Criteria: All inclusion criteria met. Proceeded to exclusion criteria. Exclusion Criteria: No exclusion criteria, proceeded to screening criteria. Screening Criteria: All screening criteria negative. Proceeded to maintenance warfarin dosing and follow-up Additional info: Pt has been busy moving, she is now all settled in. Previous INR was therapeutic. Today???s INR is Subtherapeutic, Causes: increased activity.. Dosing and follow up recommendation: INR of 1.7, due for 5mg dose today (20mg/week), so likely at trough for week. Start 5mg M (today) and 2.5mg all other days. Pt on LMWH: No Patient Visit summary provided to: Patient provided with handout of warfarin dosing and next INR appointment. Dianer, pt's mother. repeats back dosing instructions and has no further questions at this time. and patient repeats back dosing instructions and has no further questions at this time. documented in this encounter Plan of Treatment Upcoming Encounters Date Type Specialty Care Team Description 06/22/2022 Appointment Laboratory Medicine Rusty Vee M.D. 200 [place] [phone] 06/22/2022 Diagnostic Pulmonary Medicine Rusty Vee M.D. 200 [place] [phone] 06/22/2022 Diagnostic Pulmonary Medicine Rusty Vee M.D. 200 [place] [address] 06/22/2022 Appointment Radiology Rusty Vee M.D. [address] [place] [address] 06/23/2022 Clinical Communication Admitting/Central Scheduling 06/28/2022 Appointment Pulmonary Medicine Rusty Vee M.D. [address] [place] [address] 06/28/2022 Appointment Pulmonary Medicine Rusty Vee M.D. [address] [place] [address] documented as of this encounter Procedures Procedure Name Priority Date/Time Associated Diagnosis Comme nts INR, POCT, B Routine 11/27/2017 3:49 PM Results f or this CDT procedure are i n the results section . documented in this encounter Results INR, POCT (11/27/2017 3:49 PM CDT) P athologist Signature INR, POCT, B 1.7 11/27/2017 [facility] 3:49 PM CDT [facility]- [employer] [facility] Comment: ----ADDITIONAL INFORMATION---- Standard intensity warfarin therapeutic range: 2.0 to 3.0 ?? High intensity warfarin therapeutic rang e: 2.5 to 3.5 Specimen Anatomical Collection Method Collection Time Receive d Time (Source) Location / / Volume Laterality 11/27/2017 3:49 PM 8 3:50 CDT PM CDT [facility] POCT ORDERABLES - DEVICE Performing Organization Address City/State/ZIP Code Phon e Number [facility]- [address] [place] [address] [email or web address] documented in this encounter Visit Diagnoses Diagnosis Primary Hypercoagulation Syndrome (HCC) Monitoring For Therapeutic Drug Therapy Sustainable Systems Analyst (Current) Anticoagulant Treatm ent documented in this encounter Care Teams Data Base Design Analyst Relationship Specialty Start Date End Date Sridhar Garibay M.D. PCP - General 12/08/16 05/23/[address] [facility] [place] [phone] documented as of this encounter
--- OUTSIDE RECORDS SUMMARY | 2022-05-25 21:02 | XMS_ITS | Encounter Summary ---
:1975 Author Organization [facility] Address [address] [place] [address] Care Team Providers Name Role Phone Jacki Luther P.A.-C. Primary Care Provider Reason for Visit Reason Comments Med Refill Encounter Details Date Type Department Care Team Description 10/16/2017 Refill Department of Family Medicine, Sridhar Malave M.D. Med Refill [facility], in [place], [address] [place] [address] [place] [address] [place] [address] [phone] Social History Tobacco Use Types Packs/Day Years [...] Date Recorded Female 05/03/2022 7:07 PM CORPORATE PLANNER documented as of this encounter Miscellaneous Notes [...] Screening Criteria: Patient has NOT seen a [facility] provider within the past 12 months for [...] Laboratory Medicine Rusty Vee M.D. [address] [place] [phone] 06/22/2022 Diagnostic Pulmonary Medicine Rusty Vee M.D. 200 [place] [address] 06/22/2022 Diagnostic Pulmonary Medicine Rusty Vee M.D. [address] [place] [phone] 06/22/2022 Appointment Radiology Rusty Vee M.D. [address] [place] [address] 06/23/2022 Clinical Communication Admitting/Central Scheduling 06/28/2022 Appointment Pulmonary Medicine Rusty Vee M.D. [address] [place] [phone] 06/28/2022 Appointment Pulmonary Medicine Rusty Vee M.D. [address] [place] [phone] documented as of this encounter Visit Diagnoses Not on filedocumented in this encounter Care Teams Anaesthesiologist Relationship Specialty Start Date End Date Jacki Luther P.A.-C. PCP - General Family Medicine 05/24/18 09/24/19 documented as of this encounter
--- OUTSIDE RECORDS SUMMARY | 2022-05-25 21:02 | XMS_ITS | Encounter Summary ---
:1975 Author Organization [facility] Address [address] [place] [address] Care Team Providers Name Role Phone Sridhar Garibay M.D. Primary Care Provider Encounter Details Date Type Department Care Team Description 01/08/2018 Anticoagulation Visit Department of Marina Garibay Hypercoagulation Syndrome (HCC); Anticoagulation in [place] For Therapeutic Drug Therapy; Seth Car M.D. 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 - 01/08/2018 3:45 PM CDT Warfarin Maintenance Nursing Protocol Goal Range 2.0-3.0 (version approved 02/24/17) Visit Type: Patient presents for Foss-ed-Zvtp visit in Anticoagulation Service. Primary reason for [...] Appointment Laboratory Medicine Rusty Vee M.D. [address] [place] [phone] 06/22/2022 Diagnostic Pulmonary Medicine Rusty Vee M.D. [address] [place] [phone] 06/22/2022 Diagnostic Pulmonary Medicine Rusty Vee M.D. [address] [place] [phone] 06/22/2022 Appointment Radiology Rusty Vee M.D. [address] [place] [phone] 06/23/2022 Clinical Communication Admitting/Central Scheduling 06/28/2022 Appointment Pulmonary Medicine Rusty Vee M.D. [address] [place] [phone] 06/28/2022 Appointment Pulmonary Medicine Rusty Vee M.D. [address] [place] [address] documented as of this encounter Procedures Procedure Name Priority Date/Time Associated Diagnosis Comme nts INR, POCT, B Routine 01/08/2018 3:47 PM Results f or this CDT procedure are i n the results section . documented in this encounter Results INR, POCT (01/08/2018 3:47 PM CDT) P athologist Signature INR, POCT, B 3.0 01/08/2018 [facility] 3:47 PM CDT [facility]- [facility] [employer] [facility] Comment: ----ADDITIONAL INFORMATION---- Standard intensity warfarin [...] Phon e Number [facility]- [address] [address] [place] [facility] documented in this encounter Visit Diagnoses Diagnosis Primary Hypercoagulation Syndrome (HCC) Monitoring For Therapeutic Drug Therapy Mcfp (Current) Anticoagulant Treatm ent documented in this encounter Care Teams Recruiting Internship Relationship Specialty Start Date End Date Sridhar Garibay M.D. PCP - General 12/08/16 05/23/18 Morena Womack [facility] [place] [phone] documented as of this encounter
--- OUTSIDE RECORDS SUMMARY | 2022-05-25 21:02 | XMS_ITS | Encounter Summary ---
:1975 Author Organization [facility] Address [address] [place] [address] Care Team Providers Name Role Phone Sridhar Garibay M.D. Primary Care Provider Encounter Details Date Type Department Care Team Description 02/27/2018 Anticoagulation Visit Department of Marina Garibay Hypercoagulation Syndrome (HCC); Anticoagulation in [place] For Therapeutic Drug Therapy; Seth Car M.D. Mcc Anticoagulant Treatment [facility] [address] [place] [address], [facility] [phone] Social History Tobacco Use Types Packs/Day Years [...] or relatives? How often do you attend adventist or More than 4 times per year 05/04/2022 temple services? 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 - 02/27/2018 3:30 PM CDT Warfarin Maintenance Nursing Protocol Goal Range 2.0-3.0 (version approved 02/24/17) Visit Type: Patient presents for Cscg-rq-Svam visit in Anticoagulation Service. Primary reason for [...] Laboratory Medicine Rusty Vee M.D. [address] [place] [address] 06/22/2022 Diagnostic Pulmonary Medicine Rusty Vee M.D. [address] [place] [address] 06/22/2022 Diagnostic Pulmonary Medicine Rusty Vee M.D. [address] [place] [phone] 06/22/2022 Appointment Radiology Rusty Vee M.D. 200 [place] [address] 06/23/2022 Clinical Communication Admitting/Central Scheduling 06/28/2022 Appointment Pulmonary Medicine Rusty Vee M.D. 200 [place] [phone] 06/28/2022 Appointment Pulmonary Medicine Rusty Vee M.D. [address] [place] [phone] documented as of this encounter Procedures Procedure Name Priority Date/Time Associated Diagnosis Comme nts INR, POCT, B Routine 02/27/2018 3:30 PM Results f or this CDT procedure are i n the results section . documented in this encounter Results INR, POCT (02/27/2018 3:30 PM CDT) P athologist Signature INR, POCT, B 3.7 02/27/2018 [facility] 3:30 PM CDT [facility]- [facility] [employer] [facility] Comment: ----ADDITIONAL INFORMATION---- Standard intensity warfarin therapeutic range: 2.0 to 3.0 ?? High intensity warfarin therapeutic rang e: 2.5 to 3.5 Specimen Anatomical Collection Method Collection Time Receive d Time (Source) Location / / Volume Laterality 02/27/2018 3:30 PM 8 3:31 CDT PM CDT Generic [facility] POCT ORDERABLES - DEVICE Performing Organization Address City/State/ZIP Code Phon e Number [facility]- [address] [place] [address], [place] [address] [facility] documented in this encounter Visit Diagnoses Diagnosis Primary Hypercoagulation Syndrome (HCC) Monitoring For Therapeutic Drug Therapy Mcc (Current) Anticoagulant Treatm ent documented in this encounter Care Teams Watermelon Harvesting Supervisor Relationship Specialty Start Date End Date Sridhar Garibay M.D. PCP - General 12/08/16 05/23/18 [address] [place] [address] documented as of this encounter
--- OUTSIDE RECORDS SUMMARY | 2022-05-25 21:02 | XMS_ITS | Encounter Summary ---
:1975 Author Organization [facility] Address [address] [place] [address] Care Team Providers Name Role Phone Sridhar Garibay M.D. 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 - 10/26/2017 10:56 AM CDT Warfarin Maintenance [...] Laboratory Medicine Rusty Vee M.D. [address] [place] [phone] 06/22/2022 Diagnostic Pulmonary Medicine Rusty Vee M.D. [address] [place] [phone] 06/22/2022 Diagnostic Pulmonary Medicine Rusty Vee M.D. [address] [place] [phone] 06/22/2022 Appointment Radiology Rusty Vee M.D. [address] [place] [phone] 06/23/2022 Clinical Communication Admitting/Central Scheduling 06/28/2022 Appointment Pulmonary Medicine Rusty Vee M.D. [address] [place] [phone] 06/28/2022 Appointment Pulmonary Medicine Rusty Vee M.D. [address] [place] [address] documented as of this encounter Visit Diagnoses Diagnosis Monitoring For Therapeutic Drug Therapy Quantitative Developer (Current) Anticoagulant Treatm ent Primary Hypercoagulation Syndrome (HCC) documented in this encounter Care Teams Lighthouse Keeper Relationship Specialty Start Date End Date Sridhar Garibay M.D. PCP - General 12/08/16 05/23/18 [address] [place] [phone] documented as of this encounter
--- OUTSIDE RECORDS SUMMARY | 2022-05-25 21:02 | XMS_ITS | Encounter Summary ---
:1975 [address] [facility] Address [address] [place] [address] Care Team Providers Name Role Phone Sridhar Garibay M.D. Primary Care Provider Encounter Details Date Type Department Care Team Description 11/27/2017 Clinical Communication Department of Kanchan Delgado, Orthopedic Surgery in [facility] C.N.[place], [place] M.S.N. [address] [facility] [address] [place] [phone] [phone] Social History Tobacco Use Types Packs/Day Years [...] More than 4 times per year 05/04/2022 anglican services? Do you belong to any clubs [...] at Date Recorded Female 05/03/2022 7:07 PM CHERRY CUTTER documented as of this encounter Plan of Treatment Upcoming Encounters Date Type Specialty Care Team Description 06/22/2022 Appointment Laboratory Medicine Rusty Vee M.D. [address] [place] [phone] 06/22/2022 Diagnostic Pulmonary Medicine Rusty Vee M.D. [address] [place] [phone] 06/22/2022 Diagnostic Pulmonary Medicine Rusty Vee M.D. [address] [place] [phone] 06/22/2022 Appointment Radiology Rusty Vee M.D. [address] [place] [phone] 06/23/2022 Clinical Communication Admitting/Central Scheduling 06/28/2022 Appointment Pulmonary Medicine Rusty Vee M.D. [address] [place] [phone] 06/28/2022 Appointment Pulmonary Medicine Rusty Vee M.D. [address] [place] [phone] documented as of this encounter Visit Diagnoses Not on filedocumented in this encounter Care Teams Metal Trim Erector Relationship Specialty Start Date End Date Sridhar Garibay M.D. PCP - General 12/08/16 05/23/18 [place] [phone] documented as of this encounter
--- OUTSIDE RECORDS SUMMARY | 2022-05-25 21:02 | XMS_ITS | Encounter Summary ---
:1975 Author Organization [facility] Address [address] [place] [address] Care Team Providers Name Role Phone Sridhar Garibay M.D. Primary Care Provider Encounter Details Date Type Department Care Team Description 12/12/2017 Anticoagulation Visit Department of Marina Garibay Hypercoagulation Syndrome (HCC); Anticoagulation in [place] For Therapeutic Drug Therapy; Seth Car M.D. Halfway Anticoagulant Treatment [facility] [address] [place] [address], [facility] [phone] Social History Tobacco Use Types Packs/Day Years [...] at Date Recorded Female 05/03/2022 7:07 PM QUALITY PROCESS ENGINEER documented as of this encounter Progress Notes Nichole Bowers R.N. - 12/12/2017 3:30 PM CDT Warfarin Maintenance Nursing Protocol Goal Range 2.0-3.0 (version approved 02/24/17) Visit Type: Patient presents for Lvpd-nq-Vxsg visit in Anticoagulation Service. Primary reason for [...] Laboratory Medicine Rusty Vee M.D. [address] [place] [phone] 06/22/2022 Diagnostic Pulmonary Medicine Rusty Vee M.D. [address] [place] [phone] 06/22/2022 Diagnostic Pulmonary Medicine Rusty Vee M.D. [address] [place] [phone] 06/22/2022 Appointment Radiology Rusty Vee M.D. [address] [place] [phone] 06/23/2022 Clinical Communication Admitting/Central Scheduling 06/28/2022 Appointment Pulmonary Medicine Rusty Vee M.D. [address] [place] [phone] 06/28/2022 Appointment Pulmonary Medicine Rusty Vee M.D. [address] [place] [address] documented as of this encounter Procedures Procedure Name Priority Date/Time Associated Diagnosis Comme nts INR, POCT, B Routine 12/12/2017 3:43 PM Results f or this CDT procedure are i n the results section . documented in this encounter Results INR, POCT (12/12/2017 3:43 PM CDT) P athologist Signature INR, POCT, B 1.8 12/12/2017 [facility] 3:43 PM CDT [facility]- [employer] [facility] Comment: ----ADDITIONAL INFORMATION---- Standard intensity warfarin therapeutic range: 2.0 to 3.0 ?? High intensity warfarin therapeutic rang e: 2.5 to 3.5 Specimen Anatomical Collection Method Collection Time Receive d Time (Source) Location / / Volume Laterality 12/12/2017 3:43 PM 8 3:45 CDT PM CDT Generic [facility] POCT ORDERABLES - DEVICE Performing Organization Address City/State/ZIP Code Phon e Number [facility]- [address] [place] [address] [facility] [facility] documented in this encounter Visit Diagnoses Diagnosis Primary Hypercoagulation Syndrome (HCC) Monitoring For Therapeutic Drug Therapy Halfway (Current) Anticoagulant Treatm ent documented in this encounter Care Teams Features Editor Relationship Specialty Start Date End Date Sridhar Garibay M.D. PCP - General 12/08/16 05/23/18 [place] [phone] documented as of this encounter
--- OUTSIDE RECORDS SUMMARY | 2022-05-25 21:03 | XMS_ITS | Encounter Summary ---
:1975 Author Organization [facility] Address [address] [place] [address] Care Team Providers Name Role Phone Tasha Henriquez M.D. Primary Care Provider Encounter Details Date Type Department Care Team Description 04/13/2017 Hospital Encounter [facility] Marsha Henriquez M.D. [address] [place], [place] [address] (Wo rk) Social History [...] Date Recorded Female 05/03/2022 7:07 PM MEAT SMOKER documented as of this encounter Last Filed [...] encounter Miscellaneous Notes Miscellaneous - Khadar Banda, R.N. - 04/13/2017 10:48 AM CDT Anticoagulation [...] a long time, no bleeding now left [facility] for Fabiola,call if changes Recommend Recheck : Other: 5 weeks Other: 5 weeks Other: 03/10/2014 Other: 03/20/14 Plan completed by : KHADAR Cho RN - 04/13/2017 10:48 CDT KHADAR BANDA [...] Date : 04/17/2014 CDT 04/24/2014 CDT 05/01/2014 MEAT SMOKER 05/15/2014 MEAT SMOKER Location of INR sample : Lab Lab [...] will trynoted dose called to mom Fabiola [phone] called to Fabiola/no changes Called to mother/Fabiola, not awareof any changes Recommend Recheck : One week One week Two weeks Two weeks Plan completed by : KHADAR HACKETT RN - 04/13/2017 10:48 CDT KHADAR BANDA RN - 04/13/2017 10:48 CDT KHADAR BANDA RN - 04/13/2017 10:48 CDT KHADAR BANDA RN - 04/13/2017 10:48 CDT Date : 06/03/2014 MEAT SMOKER 06/05/2014 MEAT SMOKER 06/10/2014 MEAT SMOKER 06/11/2014 MEAT SMOKER Location of INR sample : Lab Type [...] Called motherFabiola. Hue will be staying in [place] 2wks post-surgery & have INR drawn there. [...] lovenox tomorrow AM as ordered. INR in [place] for next several weeks as pt will be recovering there. Recommend Recheck : Other: depending on Dr. Henriquez's preop. Other: 06/18 Other: 06/13/14 Plan completed by : INESSA WYLIE JM KHADAR GUSTAFSON RN - 04/13/2017 10:48 CDT KHADAR BANDA RN - 04/13/2017 10:48 CDT KHADAR BANDA RN - 04/13/2017 10:48 CDT KHADAR BANDA RN - 04/13/2017 10:48 CDT Date : 06/14/2014 MEAT SMOKER 06/14/2014 MEAT SMOKER 06/16/2014 MEAT SMOKER 06/23/2014 MEAT SMOKER Location of INR sample : Clinic Lab Lab Type of Sample : Venous Venous INR Result : 1.3 on 06/13 2.4 faxed from lab 2.0 Warfarin Dose : (pt took 2.5mg 06/13) 5mg Sat and 5mg Sun (06/14 and 06/15) 5mg Mon and 2.5mg all other days 5mg Mon and 2.5mg all other days Total Weekly Warfarin Dose : 20 20 Comment : [place] lab called with INR result from 06/13, reported they left a message with Dr. Henriquez and hadn't heard back, spoke with mother, Fabiola, and gave doses, continue Lovenox and repeat INR 06/16, message left with INR clinic in to contact CF Please contact [facility] lab on 06/16 for result and may call Fabiola at [phone] with instructions call to Fabiola/will stop Lovenox injections and take noted dose/pt has an appt here in [place] 06/23 so will do lab appt here that day Called to Fabiola/ Hue will be back at [facility] [place] [facility] by next draw. will have done on . no changes to meds/diet. Recommend Recheck : Two days One week Two weeks Plan completed by : KHADAR Mattson LM RN - 04/13/2017 10:48 CDT KHADAR BANDA RN - 04/13/2017 10:48 CDT KHADAR BANDA RN - 04/13/2017 10:48 CDT KHADAR BANDA RN - 04/13/2017 10:48 CDT Date : 07/10/2014 MEAT SMOKER 07/17/2014 MEAT SMOKER 07/31/2014 MEAT SMOKER 09/11/2014 CDT Location of INR sample : [...] completed by : KHADAR Dumont RN - 04/13/2017 10:48 CDT KHADAR BANDA [...] completed by : KHADAR Rondon RN - 04/13/2017 10:48 CDT KHADAR BANDA [...] is she is 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 SoundOut/no bleeding/consult with Quintin/Pharmacy and called Mom with orders Per Meredith Hernandez, no changes, has been drinking some Kiwi Juice, no bleeding/consult with Quintin/Pharmacy Called to castro /Fabiola, no changes[facility] Recommend Recheck : Three weeks One [...] 10:48 CDT Date : 04/09/2015 CDT 05/07/2015 MEAT SMOKER 06/04/2015 MEAT SMOKER 07/02/2015 MEAT SMOKER Location of INR sample : Lab Lab [...] - 04/13/2017 10:48 CDT Date : 08/06/2015 MEAT SMOKER 09/17/2015 CDT 10/29/2015 CDT 11/12/2015 CDT Location [...] completed by : KHADAR Rodriguez RN - 04/13/2017 10:48 CDT KHADAR BANDA [...] completed by : KHADAR Newman RN - 04/13/2017 10:48 CDT KHADAR BANDA RN - 04/13/2017 10:48 CDT KHADAR BANDA RN - 04/13/2017 10:48 CDT KHADAR BANDA RN - 04/13/2017 10:48 CDT Date : 02/19/2016 CDT 02/20/2016 CDT 02/21/2016 CDT 02/22/2016 CDT Location of INR sample : [facility] Type of Sample : Venous Venous Venous [...] Brizuela, Pharm.D. BAUDILIO, PharmD Eliseo Quezada, ReaD. KHADAR BANDA RN - 04/13/2017 10:48 CDT KHADAR BANDA RN - 04/13/2017 10:48 CDT KHADAR BANDA RN - 04/13/2017 10:48 CDT KHADAR BANDA RN - 04/13/2017 10:48 CDT Date : 02/23/2016 CDT 02/24/2016 CDT 02/25/2016 CDT 02/26/2016 CDT [facility] of IN[facility] Type of Sample : Venous Venous [...] : Pt being discharged on Bactrim. Will picker feeder rx for 2 mg tabs On bactrim 2 days left, has f/u in [place] on Monday. Pt mother states plan to return to [facility] on 03/06. next f/u will be in again. 2mg TuWTh Rev'd with Jelly/Pharmacist,called to mom/Fabiola pt done with Bactrim saw Mollgaard today pt is going back to [place] [...] pt will be staying with sister in [facility] next week she will have INR drawn in [place] again called to Fabiola/pt to do next INR at [place] on ./no changes called to Fabiola/no changes called to Fabiola/Castro,no changes/missed doses Recommend Recheck : Other: 03/16/16 Other: 03/31/16(2 weeks) One month Two weeks Plan completed by : JENIFER OZZY ly KHADAR BAILEY RN - 04/13/2017 10:48 CDT KHADAR BANDA RN - 04/13/2017 10:48 CDT KHADAR BANDA RN - 04/13/2017 10:48 CDT KHADAR BANDA RN - 04/13/2017 10:48 CDT Date : 05/11/2016 MEAT SMOKER 05/12/2016 MEAT SMOKER 05/17/2016 MEAT SMOKER 05/24/2016 MEAT SMOKER Location of INR sample : Other: Drawn in [place] Other: [place] Other: [place] Type of Sample : INR Result : [...] - 04/13/2017 10:48 CDT Date : 06/01/2016 MEAT SMOKER 06/06/2016 MEAT SMOKER 06/10/2016 MEAT SMOKER 06/13/2016 MEAT SMOKER Location of INR sample : Other: [place] Other: [facility] Other: [facility] Type of Sample : INR Result : [...] with Quintin/Pharmacy/called to Mom, Fabiola rev'd with Prasad/Nilam,called to mom Recommend Recheck : Other: 06/06/2016 Other: 06/10/16 Three days Other: 06/17/16 Plan completed by : KHADAR Vargas RN - 04/13/2017 10:48 CDT KHADAR BANDA RN - 04/13/2017 10:48 CDT KHADAR BANDA RN - 04/13/2017 10:48 CDT KHADAR BANDA RN - 04/13/2017 10:48 CDT Date : 06/17/2016 MEAT SMOKER 06/24/2016 MEAT SMOKER 07/07/2016 MEAT SMOKER 07/28/2016 MEAT SMOKER Location of INR sample : Other: [facility] Other: [facility] Lab Lab Type of Sample : Venous [...] changes,pt is having tooth pulled 08/31/16 at [facility] Oral Surgery will need INR checked that am scheduled.letter faxed to [facility] oral surgery to see what INR needs leon Recommend Recheck : One week Other: 07/07/16 Three weeks Two weeks Plan completed by : KHADAR VIRK RN - 04/13/2017 10:48 CDT KHADAR BANDA RN - 04/13/2017 10:48 CDT KHADAR BANDA RN - 04/13/2017 10:48 CDT KHADAR BANDA RN - 04/13/2017 10:48 CDT Date : 08/11/2016 MEAT SMOKER 08/31/2016 MEAT SMOKER 09/29/2016 CDT 10/27/2016 CDT Location of INR [...] to Mom/Fabiola/states has appt on 11/01 in [place]/may need surgery on non healing arm fx/surgery [...] some Tylenol for knee pain Called to Mom/Fabiola/ Hue has not been taking Tylenol Called [...] BANDA RN - 04/13/2017 10:48 CDT Source: [facility] Document Id: [id number] CDT!909 Miscellaneous - Khadar Banda R.N. - 04/13/2017 9:59 AM CDT Results Notification From: KHADAR BANDA RN ( Anticoagulation Nurse) To: Anticoagulation Nurse; Sent: 04/13/2017 09:59:08 CDT Show up: 04/13/2017 10:00:00 CDT Subject: Results Notification Results: Date Result Name Value Ref Range 04/13/2017 08:00 PT 52.6 second(s) (8.8 - 11.9) 04/13/2017 08:00 INR 4.5 (0.9 - 1.2) Source: [facility] Document Id: [id number] documented in this encounter Plan of Treatment Upcoming Encounters Date Type Specialty Care Team Description 06/22/2022 Appointment Laboratory Medicine Rusty Vee M.D. [address] [place] [phone] 06/22/2022 Diagnostic Pulmonary Medicine Rusty Vee M.D. [address] [place] [phone] 06/22/2022 Diagnostic Pulmonary Medicine Rusty Vee M.D. [address] [place] [phone] 06/22/2022 Appointment Radiology Rusty Vee M.D. [address] [place] [phone] 06/23/2022 Clinical Communication Admitting/Central Scheduling 06/28/2022 Appointment Pulmonary Medicine Rusty Vee M.D. [address] [place] [phone] 06/28/2022 Appointment Pulmonary Medicine Rusty Vee M.D. [address] [place] [phone] documented as of this encounter Visit Diagnoses Not on filedocumented in this encounter Care Teams Collections Technician Relationship Specialty Start Date End Date Tasha Henriquez M.D. PCP - General 12/08/16 05/23/18 [place] [phone] documented as of this encounter
--- OUTSIDE RECORDS SUMMARY | 2022-05-25 21:03 | XMS_ITS | Encounter Summary ---
:1975 Author Organization [facility] Address [address] [place] [address] Care Team Providers Name Role Phone Sridhar Garibay M.D. Primary Care Provider Encounter Details Date Type Department Care Team Description 05/17/2017 Anticoagulation Visit Department of Gela Cordon Protein Anticoagulation in Javier Whitaker ([facility]) ( Primary [place], [place] R.N. Dx) [address] [place] [address] [place] [phone] [place] [phone] Social History Tobacco Use Types Packs/Day Years [...] at Date Recorded Female 05/03/2022 7:07 PM PATTERN CHART WRITER documented as of this encounter Progress Notes Breana Cordon, RMichaelN. - 05/17/2017 4:23 PM CST Warfarin Maintenance [...] to Pop Alejandro who statesunderstanding of directions. ERN CHART WRITER documented in this encounter Plan of Treatment Upcoming Encounters Date Type Specialty Care Team Description 06/22/2022 Appointment Laboratory Medicine Rusty Vee M.D. [address] [place] [phone] 06/22/2022 Diagnostic Pulmonary Medicine Rusty Vee M.D. [address] [place] [phone] 06/22/2022 Diagnostic Pulmonary Medicine Rusty Vee M.D. [address] [place] [phone] 06/22/2022 Appointment Radiology Rusty Vee M.D. [address] [place] [phone] 06/23/2022 Clinical Communication Admitting/Central Scheduling 06/28/2022 Appointment Pulmonary Medicine Rusty Vee M.D. [address] [place] [phone] 06/28/2022 Appointment Pulmonary Medicine Rusty Vee M.D. [address] [place] [phone] documented as of this encounter Results (ABNORMAL) PT (Prothrombin Time) with INR (05/25/2017 8:05 AM PATTERN CHART WRITER) [facility] Method Time Signature Prothrombin 29.1 (H) 8.8 - 11.9 05/25/2017 [facility] Time, P sec 11:40 AM [facility] INR 2.6 0.9 - 1.2 05/25/2017 [facility] 11:40 AM [facility] Comment: Standard intensity warfarin therapeutic range: 2.0 to 3.0 High intensity warfarin therapeutic rang e: 2.5 to 3.5 Specimen Anatomical Collection Method Collection Time Receive d Time (Source) Location / / Volume Laterality Blood (Blood, 05/25/2017 8:05 AM 05/25/20 17 Venous) PATTERN CHART WRITER 11:15 AM PATTERN CHART WRITER Sridhar Garibay M.D. 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 PCP - General 12/08/16 05/23/18 [address] [place] [phone] documented as of this encounter
--- OUTSIDE RECORDS SUMMARY | 2022-05-25 21:03 | XMS_ITS | Encounter Summary ---
:1975 Author Organization [facility] Address [address] [place] [address] Care Team Providers Name Role Phone Tasha Henriquez M.D. Primary Care Provider Encounter Details Date Type Department Care Team Description 03/23/2017 Hospital Encounter [facility]X [facility] Marsha Henriquez M.D. [address] [place], [place] [address] (Wo rk) Social History [...] at Date Recorded Female 05/03/2022 7:07 PM DOCUMENT CONTROL MANAGER documented as of this encounter Medications [...] Notes Miscellaneous - Khadar Banda, RMichaelN. - 03/23/2017 10:23 AM CDT Anticoagulation Patient [...] completed by : KHADAR Manning RN - 03/23/2017 10:23 CDT KHADAR BANDA RN - 03/23/2017 10:23 CDT KHADAR BANDA RN - 03/23/2017 10:23 CDT KHADAR BADNA RN - 03/23/2017 10:23 CDT Date : [...] time, no bleeding now left msg for Fabioal,call if changes Recommend Recheck : Other: 5 [...] BANDA RN - 03/23/2017 10:23 CDT KHADAR BNADA RN - 03/23/2017 10:23 CDT KHADAR BANDA RN - 03/23/2017 10:23 CDT Date : 04/17/2014 CDT 04/24/2014 CDT 05/01/2014 DOCUMENT CONTROL MANAGER 05/15/2014 DOCUMENT CONTROL MANAGER Location of INR sample : Lab [...] will trynoted dose called to mom Fabiola [phone] called to Fabiola/no changes Called to mother/Fabiola, not awareof any changes Recommend Recheck : One week One week Two weeks Two weeks Plan completed by : KHADAR HACKETT RN - 03/23/2017 10:23 CDT KHADAR BANDA RN - 03/23/2017 10:23 CDT KHADAR BANDA RN - 03/23/2017 10:23 CDT KHADAR BANDA RN - 03/23/2017 10:23 CDT Date : 06/03/2014 DOCUMENT CONTROL MANAGER 06/05/2014 DOCUMENT CONTROL MANAGER 06/10/2014 DOCUMENT CONTROL MANAGER 06/11/2014 DOCUMENT CONTROL MANAGER Location of INR sample : Lab [...] Called motherFabiola. Hue will be staying in [place] 2wks post-surgery & have INR drawn there. [...] lovenox tomorrow AM as ordered. INR in [place] for next several weeks as pt will be recovering there. Recommend Recheck : Other: depending on Dr. Henriquez's preop. Other: 06/18 Other: 06/13/14 Plan completed by : KHADAR SANDERS RN - 03/23/2017 10:23 CDT KHADAR BANDA RN - 03/23/2017 10:23 CDT KHADAR BANDA RN - 03/23/2017 10:23 CDT KHADAR BANDA RN - 03/23/2017 10:23 CDT Date : 06/14/2014 DOCUMENT CONTROL MANAGER 06/14/2014 DOCUMENT CONTROL MANAGER 06/16/2014 DOCUMENT CONTROL MANAGER 06/23/2014 DOCUMENT CONTROL MANAGER Location of INR sample : Clinic [...] Dose : 20 20 Comment : [facility] called with INR result from 06/13, reported they left a message with Dr. Henriquez and hadn't heard back, spoke with mother, Fabiola, and gave doses, continue Lovenox and repeat INR 06/16, message left with INR clinic in [place] to contact CF Please contact [facility] lab on 06/16 for result and may call Fabiola at [phone] with instructions call to Fabiola/ramon stop Lovenox injections and take noted dose/pt has an appt here in [place] 06/23 so will do lab appt here that day Called to Fabiola/ Hue will be back at [facility] by next draw. will have done on . no changes to meds/diet. Recommend Recheck : Two days One week Two weeks Plan completed by : latasha OZZY KHADAR VILLAFUERTE RN - 03/23/2017 10:23 CDT KHADAR BANDA RN - 03/23/2017 10:23 CDT KHADAR BANDA RN - 03/23/2017 10:23 CDT KHADAR BANDA RN - 03/23/2017 10:23 CDT Date : 07/10/2014 DOCUMENT CONTROL MANAGER 07/17/2014 DOCUMENT CONTROL MANAGER 07/31/2014 DOCUMENT CONTROL MANAGER 09/11/2014 CDT Location of INR sample [...] : KHADAR Dumont RN - 03/23/2017 10:23 CDT KHADAR BANDA [...] change is she is exercising alot for txtr/no bleeding/consult with Quintin/Pharmacy and called Mom with [...] week Two weeks Plan completed by : KHADRA Vargas RN - 03/23/2017 10:23 CDT KHADAR [...] 10:23 CDT Date : 04/09/2015 CDT 05/07/2015 DOCUMENT CONTROL MANAGER 06/04/2015 DOCUMENT CONTROL MANAGER 07/02/2015 DOCUMENT CONTROL MANAGER Location of INR sample : Lab [...] - 03/23/2017 10:23 CDT Date : 08/06/2015 DOCUMENT CONTROL MANAGER 09/17/2015 CDT 10/29/2015 CDT 11/12/2015 CDT [...] 02/22/2016 CDT Location of INR sample : [facility] Type of Sample : [...] Eliseo Quezada, PharmD. KHADAR BANDA RN - 03/23/2017 10:23 CDT [...] Eliseo Quezada, PharmD. KHADAR BANDA RN - 03/23/2017 10:23 CDT [...] : Pt being discharged on Bactrim. Will continuous pickling line pickler helper rx for 2 mg tabs On bactrim 2 days left, has f/u in [place] on Monday. Pt mother states plan to return to [facility] on 03/06. next f/u will be in [facility]. 2mg TuWTh Rev'd with Jelly/Pharmacist,called to [...] pt will be staying with sister in [facility] next week she will have INR drawn in [place] again called to Fabiola/pt to do next INR at on a ./no changes called to Fabiola/no changes called to Fabiola/Mom,no changes/missed doses Recommend Recheck : Other: 03/16/16 Other: 03/31/16(2 weeks) One month Two weeks Plan completed by : JENIFER OZZY ly KHADAR BAILEY RN - 03/23/2017 10:23 CDT KHADAR BANDA RN - 03/23/2017 10:23 CDT KHADAR BANDA RN - 03/23/2017 10:23 CDT KHADAR BANDA RN - 03/23/2017 10:23 CDT Date : 05/11/2016 DOCUMENT CONTROL MANAGER 05/12/2016 DOCUMENT CONTROL MANAGER 05/17/2016 DOCUMENT CONTROL MANAGER 05/24/2016 DOCUMENT CONTROL MANAGER Location of INR sample : Other: Drawn in [place] Other: [place] Other: [place] Type of Sample : INR Result : 1.6 2.4 1.8 Warfarin Dose : 2.5mg daily 2.5mg daily 5mg 05/24 then 2.5mg daily Total Weekly Warfarin Dose : 17.5 Comment : Per Mom/Fabiola, pt disch from [facility]note 3[facility] today, fell & fx left humerus 05/08, surg 05/09, INR 1.3 on 05/08, 1.5 on 05/09, 1.6 on 05/10 & 1.4 05/11, has had 2.5mg daily since 05/09, going to for INR 05/12 & result to be faxed to us, not on Lovenox rev'd with QuintinPharmacist,called to mom/Fabiola,she will have it done in [...] - 03/23/2017 10:23 CDT Date : 06/01/2016 DOCUMENT CONTROL MANAGER 06/06/2016 DOCUMENT CONTROL MANAGER 06/10/2016 DOCUMENT CONTROL MANAGER 06/13/2016 DOCUMENT CONTROL MANAGER Location of INR sample : Other: [place] Other: [facility] Other: [facility] Type of Sample : INR Result [...] - 03/23/2017 10:23 CDT Date : 06/17/2016 DOCUMENT CONTROL MANAGER 06/24/2016 DOCUMENT CONTROL MANAGER 07/07/2016 DOCUMENT CONTROL MANAGER 07/28/2016 DOCUMENT CONTROL MANAGER Location of INR sample : Other: [facility] CF Other: [facility] CF Lab Lab Type of [...] changes,pt is having tooth pulled 08/31/16 at [facility] Oral Surgery will need INR checked that am scheduled.letter faxed to [facility] oral surgery to see what INR needs leon Recommend Recheck : One week Other: 07/07/16 Three weeks Two weeks Plan completed by : KHADAR VIRK RN - 03/23/2017 10:23 CDT KHADAR BANDA RN - 03/23/2017 10:23 CDT KHADAR BANDA RN - 03/23/2017 10:23 CDT KHADAR BANDA RN - 03/23/2017 10:23 CDT Date : 08/11/2016 DOCUMENT CONTROL MANAGER 08/31/2016 DOCUMENT CONTROL MANAGER 09/29/2016 CDT 10/27/2016 CDT Location of INR [...] to Mom/Fabiola/states has appt on 11/01 in [place]/may need surgery on non healing arm fx/surgery tentatively scheduled for 12/21/ calendar to check [facility] for pre-op instructions and schedule next INR Per Mom/Fabiola, arm is healing, no surg at this time, may have in Feb, she will let us know Called to Mom/Fabiola, no changes Called to Mom/Fabiola/no changes Recommend Recheck : Other: 12/22/16 One month One month Plan completed by : DARYA LERMA JM KHADAR Mae RN - 03/23/2017 10:23 [...] BANDA RN - 03/23/2017 10:23 CDT [facility] Document Id: [id number] CDT![id number] Miscellaneous - Khadar Banda R.N. - 03/23/2017 10:15 AM CDT Results Notification From: KHADAR BANDA RN ( Anticoagulation Nurse) To: Anticoagulation Nurse; Sent: 03/23/2017 10:15:50 CDT Show up: 03/23/2017 10:16:00 CDT Subject: Results Notification Results: Date Result Name Value Ref Range 03/23/2017 08:01 PT 37.0 second(s) (8.8 - 11.9) 03/23/2017 08:01 INR 3.2 (0.9 - 1.2) [facility] Document Id: [id number] documented in this encounter Plan of Treatment Upcoming Encounters Date Type Specialty Care Team Description 06/22/2022 Appointment Laboratory Medicine Rusty Vee M.D. [address] [place] [phone] 06/22/2022 Diagnostic Pulmonary Medicine Rusty Vee M.D. [address] [place] [phone] 06/22/2022 Diagnostic Pulmonary Medicine Rusty Vee M.D. [address] [place] [phone] 06/22/2022 Appointment Radiology Rusty Vee M.D. [address] [place] [phone] 06/23/2022 Clinical Communication Admitting/Central Scheduling 06/28/2022 Appointment Pulmonary Medicine Rusty Vee M.D. [address] [place] [phone] 06/28/2022 Appointment Pulmonary Medicine Rusty Vee M.D. [address] [place] [phone] documented as of this encounter Procedures Procedure Name Priority Date/Time Associated Comments Diagnosis PROTHROMBIN TIME Routine 03/23/2017 8:01 AM Resul ts for this (PT), P CDT procedure are i n the results section. documented in this encounter Results (ABNORMAL) PT (Prothrombin Time) with INR (03/23/2017 8:01 AM CDT) [facility] gist Method Time Signature Prothrombin 37.0 (H) 8.8 [...] on filedocumented in this encounter Care Teams Green Meat Packer Relationship Specialty Start Date End Date Tasha Henriquez M.D. PCP - General 12/08/16 05/23/18 [address] [phone] documented as of this encounter
--- OUTSIDE RECORDS SUMMARY | 2022-05-25 21:03 | XMS_ITS | Encounter Summary ---
:1975 Author Organization [facility] Address [address] [place] [address] Care Team Providers Name Role Phone Tasha Henriquez M.D. Primary Care Provider Encounter Details Date Type Department Care Team Description 01/19/2017 Hospital Encounter HX [facility] Marsha Henriquez M.D. [address] [place], [place] [address] (Wo rk) Social History [...] More than 4 times per year 05/04/2022 amish services? Do you belong to any clubs [...] Date Recorded Female 05/03/2022 7:07 PM COMMERCIAL TRAILER TRUCK DRIVER documented as of this encounter Last Filed [...] Notes Miscellaneous - Khadar Banda, R.N. - 01/19/2017 10:46 AM CDT Anticoagulation [...] a long time, no bleeding now left [place] [facility] [place]ola,call if changes Recommend Recheck : Other: 5 weeks Other: 5 weeks Other: 03/10/2014 Other: 03/20/14 Plan completed by : KHADAR Cho RN - 01/19/2017 10:46 KHADAR HILL RN - 01/19/2017 10:46 KHADAR HILL RN - 01/19/2017 10:46 CDT KHADAR BANDA [...] Date : 04/17/2014 CDT 04/24/2014 CDT 05/01/2014 COMMERCIAL TRAILER TRUCK DRIVER 05/15/2014 COMMERCIAL TRAILER TRUCK DRIVER Location of INR sample : Lab Lab [...] will trynoted dose called to mom Fabiola [phone] called to Fabiola/no changes Called to mother/Fabiola, not awareof any changes Recommend Recheck : One week One week Two weeks Two weeks Plan completed by : KHADAR HACKETT RN - 01/19/2017 10:46 CDT KHADAR BANDA RN - 01/19/2017 10:46 CDT KHADAR BANDA RN - 01/19/2017 10:46 CDT KHADAR BANDA RN - 01/19/2017 10:46 CDT Date : 06/03/2014 COMMERCIAL TRAILER TRUCK DRIVER 06/05/2014 COMMERCIAL TRAILER TRUCK DRIVER 06/10/2014 COMMERCIAL TRAILER TRUCK DRIVER 06/11/2014 COMMERCIAL TRAILER TRUCK DRIVER Location of INR sample : Lab Type [...] Called motherFabiola. Hue will be staying in [place] 2wks post-surgery & have INR drawn there. [...] lovenox tomorrow AM as ordered. INR in [place] for next several weeks as pt will be recovering there. Recommend Recheck : Other: depending on Dr. Henriquez's preop. Other: 06/18 Other: 06/13/14 Plan completed by : INESSA WYLIE JM KHADAR GUSTAFSON RN - 01/19/2017 10:46 CDT KHADAR BANDA RN - 01/19/2017 10:46 CDT KHADAR BANDA RN - 01/19/2017 10:46 CDT KHADAR BANDA RN - 01/19/2017 10:46 CDT Date : 06/14/2014 COMMERCIAL TRAILER TRUCK DRIVER 06/14/2014 COMMERCIAL TRAILER TRUCK DRIVER 06/16/2014 COMMERCIAL TRAILER TRUCK DRIVER 06/23/2014 COMMERCIAL TRAILER TRUCK DRIVER Location of INR sample : Clinic Lab Lab Type of Sample : Venous Venous INR Result : 1.3 on 06/13 2.4 faxed from lab 2.0 Warfarin Dose : (pt took 2.5mg 06/13) 5mg Sat and 5mg Sun (06/14 and 06/15) 5mg Mon and 2.5mg all other days 5mg Mon and 2.5mg all other days Total Weekly Warfarin Dose : 20 20 Comment : [place] lab called with INR result from 06/13, reported they left a message with Dr. Henriquez and hadn't heard back, spoke with mother, Fabiola, and gave doses, continue Lovenox and repeat INR 06/16, message left with INR clinic in to contact [place] Please contact [facility] on 06/16 for result and may call Fabiola at [phone] with instructions call to Fabiola/will stop Lovenox injections and take noted dose/pt has an appt here in [place] 06/23 so will do lab appt here that day Called to Fabiola/ Hue will be back at [facility] by next draw. will have done on . no changes to meds/diet. Recommend Recheck : Two days One week Two weeks Plan completed by : KHADAR Mattson LM RN - 01/19/2017 10:46 CDT KHADAR BANDA RN - 01/19/2017 10:46 CDT KHADAR BANDA RN - 01/19/2017 10:46 CDT KHADAR BANDA RN - 01/19/2017 10:46 CDT Date : 07/10/2014 COMMERCIAL TRAILER TRUCK DRIVER 07/17/2014 COMMERCIAL TRAILER TRUCK DRIVER 07/31/2014 COMMERCIAL TRAILER TRUCK DRIVER 09/11/2014 CDT Location of INR sample : [...] completed by : KHADAR Rondon RN - 01/19/2017 10:46 CDT KHADAR BANDA [...] is she is 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 [employer]/no bleeding/consult with Quintin/Pharmacy and called Mom with [...] 10:46 CDT Date : 04/09/2015 CDT 05/07/2015 COMMERCIAL TRAILER TRUCK DRIVER 06/04/2015 COMMERCIAL TRAILER TRUCK DRIVER 07/02/2015 COMMERCIAL TRAILER TRUCK DRIVER Location of INR sample : Lab Lab [...] - 01/19/2017 10:46 CDT Date : 08/06/2015 COMMERCIAL TRAILER TRUCK DRIVER 09/17/2015 CDT 10/29/2015 CDT 11/12/2015 CDT Location [...] 22.5 20 Comment : Orders called to Fabioal/mother. No changes. Called to Mom/Fabiola, no changes called to Mom/Fabiola, no changes Called to Mom/Fabiola, no changes, will try dec Recommend Recheck : Six weeks Six weeks Two weeks One week Plan completed by : KHADAR Rodriguez RN - 01/19/2017 10:46 CDT KHADAR BANDA [...] completed by : KHADAR Newman RN - 01/19/2017 10:46 CDT KHADAR BANDA RN - 01/19/2017 10:46 CDT KHADAR BANDA RN - 01/19/2017 10:46 CDT KHADAR BANDA RN - 01/19/2017 10:46 CDT Date : 02/19/2016 CDT 02/20/2016 CDT 02/21/2016 CDT 02/22/2016 CDT Location of INR sample : [facility] Type of Sample : Venous [...] Eliseo Quezada, ReaD. KHADAR BANDA RN - 01/19/2017 10:46 CDT KHADAR BANDA RN - 01/19/2017 10:46 CDT KHADAR BANDA RN - 01/19/2017 10:46 CDT KHADAR BANDA RN - 01/19/2017 10:46 CDT Date : 02/23/2016 CDT 02/24/2016 CDT 02/25/2016 CDT 02/26/2016 CDT [facility] INR [facility] Type of Sample : Venous Venous [...] Pt mother states plan to return to [facility] on 03/06. next f/u will be in again. 2mg TuWTh Rev'd with Jelly/Pharmacist,called to mom/Fabiola pt done with Bactgonzalozuri rosaline [place] today pt is going back to [place] [...] pt will be staying with sister in [facility] next week she will have INR drawn in [place] again called to Fabiola/pt to do next INR at [place] on ./no changes called to Fabiola/no changes called to Fabiola/Mom,no changes/missed doses Recommend Recheck : Other: 03/16/16 Other: 03/31/16(2 weeks) One month Two weeks Plan completed by : JENIFER OZZY ly KHADAR BAILEY RN - 01/19/2017 10:46 CDT KHADAR BANDA RN - 01/19/2017 10:46 CDT KHADAR BANDA RN - 01/19/2017 10:46 CDT KHADAR BANDA RN - 01/19/2017 10:46 CDT Date : 05/11/2016 COMMERCIAL TRAILER TRUCK DRIVER 05/12/2016 COMMERCIAL TRAILER TRUCK DRIVER 05/17/2016 COMMERCIAL TRAILER TRUCK DRIVER 05/24/2016 COMMERCIAL TRAILER TRUCK DRIVER Location of INR sample : Other: Drawn [place] Other: [place] Other: [place] Type of Sample : INR Result : 1.6 2.4 1.8 Warfarin Dose : 2.5mg daily 2.5mg daily 5mg 05/24 then 2.5mg daily Total Weekly Warfarin Dose : 17.5 Comment : Per Mom/Fabiola, pt disch from [facility], fell & fx left humerus 05/08, surg [...] - 01/19/2017 10:46 CDT Date : 06/01/2016 COMMERCIAL TRAILER TRUCK DRIVER 06/06/2016 COMMERCIAL TRAILER TRUCK DRIVER 06/10/2016 COMMERCIAL TRAILER TRUCK DRIVER 06/13/2016 COMMERCIAL TRAILER TRUCK DRIVER Location of INR sample : Other: [place] Other: [facility] Other: [facility] Type of Sample : INR Result : 1.6 1.4 1.6 2.2 Warfarin Dose : 5mg 06/02, 2.5mg 06/03, 06/04, 06/05 5mg 06/06 & 06/07,2.5mg 06/08 & 06/09 5mg16, 06/11, 2.5mg 18 2.5mg Mon,Wed,fri and 5mg all other days [...] - 01/19/2017 10:46 CDT Date : 06/17/2016 COMMERCIAL TRAILER TRUCK DRIVER 06/24/2016 COMMERCIAL TRAILER TRUCK DRIVER 07/07/2016 COMMERCIAL TRAILER TRUCK DRIVER 07/28/2016 COMMERCIAL TRAILER TRUCK DRIVER Location of INR sample : Other: [facility] Other: [facility] Lab Lab Type of Sample : Venous [...] changes,pt is having tooth pulled 08/31/16 at [facility] Oral Surgery will need INR checked that am scheduled.letter faxed to [facility] oral surgery to see what INR needs leon Recommend Recheck : One week Other: 07/07/16 Three weeks Two weeks Plan completed by : KHADAR VIRK RN - 01/19/2017 10:46 CDT KHADAR BANDA RN - 01/19/2017 10:46 CDT KHADAR BANDA RN - 01/19/2017 10:46 CDT KHADAR BANDA RN - 01/19/2017 10:46 CDT Date : 08/11/2016 COMMERCIAL TRAILER TRUCK DRIVER 08/31/2016 COMMERCIAL TRAILER TRUCK DRIVER 09/29/2016 CDT 10/27/2016 CDT Location of INR [...] : KHADAR Jackson RN - 01/19/2017 10:46 KHADAR HILL RN - 01/19/2017 10:46 CDT KHADAR BANDA [...] to Mom/Fabiola/states has appt on 11/01 in [place]/may need surgery on non healing arm fx/surgery [...] : KHADAR Gale RN - 01/19/2017 10:46 CDT KHADAR BANDA [...] BANDA RN - 01/19/2017 10:46 CDT [facility] Document Id: [id number] CDT![id number] Miscellaneous - Wali Mcclellan RMichaelNMichael - 01/19/2017 9:25 AM CDT Results Notification From: WALI MCCLELLAN RN ( Anticoagulation Nurse) To: Anticoagulation Nurse; Sent: 01/19/2017 09:25:03 CDT Show up: 01/19/2017 09:26:00 CDT Subject: Results Notification Results: Date Result Name Value Ref Range 01/19/2017 08:00 PT 31.4 second(s) (8.8 - 11.9) 01/19/2017 08:00 INR 2.8 (0.9 - 1.2) Source: [facility] [employer]ART Document Id: [id number] Electronically signed by Conversion, [facility] Scalping Machine Operator [id number] at 01/25/2017 12:25 AM CDT documented in this encounter Plan of Treatment Upcoming Encounters Date Type Specialty Care Team Description 06/22/2022 Appointment Laboratory Medicine Rusty Vee M.D. [address] [place] [phone] 06/22/2022 Diagnostic Pulmonary Medicine Rusty Vee M.D. [address] [place] [phone] 06/22/2022 Diagnostic Pulmonary Medicine Rusty Vee M.D. [address] [place] [phone] 06/22/2022 Appointment Radiology Rusty Vee M.D. [address] [place] [phone] 06/23/2022 Clinical Communication Admitting/Central Scheduling 06/28/2022 Appointment Pulmonary Medicine Rusty Vee M.D. [address] [place] [phone] 06/28/2022 Appointment Pulmonary Medicine Rusty Vee M.D. [address] [place] [phone] documented as of this encounter Procedures Procedure Name Priority Date/Time Associated Comments Diagnosis PROTHROMBIN TIME Routine 01/19/2017 8:00 AM Resul ts for this (PT), P CDT procedure are i n the results section. documented in this encounter Results (ABNORMAL) PT (Prothrombin Time) with INR (01/19/2017 8:00 AM CDT) [facility] Method Time Signature Prothrombin 31.4 (H) 8.8 [...] on filedocumented in this encounter Care Teams Utilization Review Nurse Relationship Specialty Start Date End Date Tasha Henriquez M.D. PCP - General 12/08/16 05/23/18 [address] [place] [phone] documented as of this encounter
--- OUTSIDE RECORDS SUMMARY | 2022-05-25 21:03 | XMS_ITS | Encounter Summary ---
:1975 Author Organization [facility] Address [address] [place] [address] Care Team Providers Name Role Phone Tasha Henriquez M.D. Primary Care Provider Encounter Details Date Type Department Care Team Description 03/30/2017 Hospital Encounter [facility] Marsha Henriquez M.D. [address] [place], [place] [address] (Wo rk) Social History [...] at Date Recorded Female 05/03/2022 7:07 PM ASSOCIATE QUALITY ENGINEER documented as of this encounter Last [...] encounter Miscellaneous Notes Miscellaneous - Hanna Truong, R.N. - 03/30/2017 10:28 AM CDT Anticoagulation [...] Date : 04/17/2014 CDT 04/24/2014 CDT 05/01/2014 ASSOCIATE QUALITY ENGINEER 05/15/2014 ASSOCIATE QUALITY ENGINEER Location of INR sample : Lab [...] will trynoted dose called to mom Fabiola [phone] called to Fabiola/no changes Called to mother/Fabiola, not awareof any changes Recommend Recheck : One week One week Two weeks Two weeks Plan completed by : HANNA CLAY RN - 03/30/2017 10:28 CDT HANNA TRUONG RN - 03/30/2017 10:28 CDT HANNA TRUONG RN - 03/30/2017 10:28 CDT HANNA TRUONG RN - 03/30/2017 10:28 CDT Date : 06/03/2014 ASSOCIATE QUALITY ENGINEER 06/05/2014 ASSOCIATE QUALITY ENGINEER 06/10/2014 ASSOCIATE QUALITY ENGINEER 06/11/2014 ASSOCIATE QUALITY ENGINEER Location of INR sample : Lab [...] surgery (06/06) with no bridging. Called motherDiane. Swann will be staying in [place] 2wks post-surgery & have INR drawn there. [...] lovenox tomorrow AM as ordered. INR in [place] for next several weeks as pt will be recovering there. Recommend Recheck : Other: depending on Dr. Henriquez's preop. Other: 06/18 Other: 06/13/14 Plan completed by : HANNA MARTIN RN - 03/30/2017 10:28 CDHANNA MAXWELL RN - 03/30/2017 10:28 HANNA MAO RN - 03/30/2017 10:28 PATRICIAT HANNA TRUONG RN - 03/30/2017 10:28 CDT Date : 06/14/2014 ASSOCIATE QUALITY ENGINEER 06/14/2014 ASSOCIATE QUALITY ENGINEER 06/16/2014 ASSOCIATE QUALITY ENGINEER 06/23/2014 ASSOCIATE QUALITY ENGINEER Location of INR sample : Clinic [...] Warfarin Dose : 20 20 Comment : [place] lab called with INR result from 06/13, reported they left a message with Dr. Henriquez and hadn't heard back, spoke with mother, Fabiola, and gave doses, continue Lovenox and repeat INR 06/16, message left with INR clinic in to contact CF Please contact [place] lab on 06/16 for result and may call Fabiola at [phone] with instructions call to Fabiola/will stop Lovenox injections and take noted dose/pt has an appt here in [place] 06/23 so will do lab appt here that day Called to Fabiola/ Hue will be back at [facility] by next draw. will have done on . no changes to meds/diet. Recommend Recheck : Two days One week Two weeks Plan completed by : HANNA Neri LM RN - 03/30/2017 10:28 CDHANNA MAXWELL RN - 03/30/2017 10:28 HANNA MAO RN - 03/30/2017 10:28 CDT HANNA TRUONG RN - 03/30/2017 10:28 CDT Date : 07/10/2014 ASSOCIATE QUALITY ENGINEER 07/17/2014 ASSOCIATE QUALITY ENGINEER 07/31/2014 ASSOCIATE QUALITY ENGINEER 09/11/2014 CDT Location of INR sample [...] Comment : called to Fabiola/Mom Called to Faboila/Mom. No changes. called to Mom/Fabiola/No changes LMTC [...] is she is 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 [employer]/no bleeding/consult with Quintin/Pharmacy and called Mom with [...] : Called to Mom/Fabiola,no changes Called to Mom/Faboila, had period last wk & took some [...] 10:28 CDT Date : 04/09/2015 CDT 05/07/2015 ASSOCIATE QUALITY ENGINEER 06/04/2015 ASSOCIATE QUALITY ENGINEER 07/02/2015 ASSOCIATE QUALITY ENGINEER Location of INR sample : Lab [...] - 03/30/2017 10:28 CDT Date : 08/06/2015 ASSOCIATE QUALITY ENGINEER 09/17/2015 CDT 10/29/2015 CDT 11/12/2015 CDT Location [...] 02/22/2016 CDT Location of INR sample : [facility] Type of Sample : Venous Venous [...] Brizuela, Pharm.D. BAUDILIO, PharmD Eliseo Quezada, ReaD. HANNA TRUONG RN - 03/30/2017 10:28 [...] Quezada, PharmD. Tyshawn Brizuela, Pharm.D. Eliseo Quezada, ReaD. HANNA TRUONG RN - 03/30/2017 10:28 [...] : Pt being discharged on Bactrim. Will sisal picker rx for 2 mg tabs On bactrim 2 days left, has f/u in [place] on Monday. Pt mother states plan to return to [facility] on 03/06. next f/u will be in [place]. 2mg TuWTh Rev'd with Jelly/Pharmacist,called to mom/Fabiola [...] pt will be staying with sister in [facility] next week she will have INR drawn in [place] again called to Fabiola/pt to do next INR at on a ./no changes called to Fabiola/no changes called to Fabiola/Mom,no changes/missed doses Recommend Recheck : Other: 03/16/16 Other: 03/31/16(2 weeks) One month Two weeks Plan completed by : JENIFER OZZY ly HANNA MARADIAGA RN - 03/30/2017 10:28 CDT HANNA TRUONG RN - 03/30/2017 10:28 CDT HANNA TRUONG RN - 03/30/2017 10:28 CDT HANNA TRUONG RN - 03/30/2017 10:28 CDT Date : 05/11/2016 ASSOCIATE QUALITY ENGINEER 05/12/2016 ASSOCIATE QUALITY ENGINEER 05/17/2016 ASSOCIATE QUALITY ENGINEER 05/24/2016 ASSOCIATE QUALITY ENGINEER Location of INR sample : Other: Drawn [place] Other: [place] Other: [place] Type of Sample : INR Result : [...] to us, not on Lovenox rev'd with Juhiaci,called to mom/Fabiola,she will have it done in [...] - 03/30/2017 10:28 CDT Date : 06/01/2016 ASSOCIATE QUALITY ENGINEER 06/06/2016 ASSOCIATE QUALITY ENGINEER 06/10/2016 ASSOCIATE QUALITY ENGINEER 06/13/2016 ASSOCIATE QUALITY ENGINEER Location of INR sample : Other: [facility] Other: [facility] Other: [facility] Type of Sample : INR Result [...] with Quintin/Pharmacy/called to Fabiola Hernandez rev'd with Prasad/Nilam,called to mom Recommend Recheck : Other: 06/06/2016 Other: 06/10/16 Three days Other: 06/17/16 Plan completed by : HANNA Chen RN - 03/30/2017 10:28 CDT HANNA TRUONG RN - 03/30/2017 10:28 CDT HANNA TRUONG RN - 03/30/2017 10:28 CDT HANNA TRUONG RN - 03/30/2017 10:28 CDT Date : 06/17/2016 ASSOCIATE QUALITY ENGINEER 06/24/2016 ASSOCIATE QUALITY ENGINEER 07/07/2016 ASSOCIATE QUALITY ENGINEER 07/28/2016 ASSOCIATE QUALITY ENGINEER Location of INR sample : Other: [facility] CF Other: [facility] Lab Lab Type of Sample [...] changes,pt is having tooth pulled 08/31/16 at [facility] Oral Surgery will need INR checked that am scheduled.letter faxed to [facility] oral surgery to see what INR needs leon Recommend Recheck : One week Other: 07/07/16 Three weeks Two weeks Plan completed by : HANNA OROURKE RN - 03/30/2017 10:28 CDT HANNA TRUONG RN - 03/30/2017 10:28 CDT HANNA TRUONG RN - 03/30/2017 10:28 CDT HANNA TRUONG RN - 03/30/2017 10:28 CDT Date : 08/11/2016 ASSOCIATE QUALITY ENGINEER 08/31/2016 ASSOCIATE QUALITY ENGINEER 09/29/2016 CDT 10/27/2016 CDT Location of INR [...] surgeon's office and result faxed Called to Michelle, no changes or concerns Called to Fabiola,pts mother, no changes Recommend Recheck : Other: 08/31/16 One month One month One month Plan completed by : JENIFER JM ly OZZY HANNA TRUONG RN - 03/30/2017 10:28 CDT [...] 25 25 25 Comment : called to Michelle/ has appt on 11/01 in [place]/may need surgery on non healing arm fx/surgery tentatively scheduled for 12/21/on calendar to check [facility] for pre-op instructions and schedule next INR Per Michelle, arm is healing, no surg at this [...] TRUONG RN - 03/30/2017 10:28 CDT Source: [facility] [employer] Document Id: [id number] CDT![id number] Miscellaneous - Hanna Truong R.N. - 03/30/2017 9:45 AM CDT Results Notification Document Contains Addenda Addendum by HANNA TRUONG RN on March 30, 2017 10:30:42 CDT Called to castro Hicks From: HANNA TRUONG RN ( Anticoagulation Nurse) To: Anticoagulation Nurse; Sent: 03/30/2017 09:45:46 CDT Show up: 03/30/2017 09:46:00 CDT Subject: Results Notification Results: Date Result Name Value Ref Range 03/30/2017 08:00 PT 34.7 second(s) (8.8 - 11.9) 03/30/2017 08:00 INR 3.1 (0.9 - 1.2) Source: [facility] [employer] Document Id: [id number] documented in this encounter Plan of Treatment Upcoming Encounters Date Type Specialty Care Team Description 06/22/2022 Appointment Laboratory Medicine Rusty Vee M.D. [address] [place] [phone] 06/22/2022 Diagnostic Pulmonary Medicine Rusty Vee M.D. [address] [place] [phone] 06/22/2022 Diagnostic Pulmonary Medicine Rusty Vee M.D. [address] [place] [phone] 06/22/2022 Appointment Radiology Rusty Vee M.D. [address] [place] [phone] 06/23/2022 Clinical Communication Admitting/Central Scheduling 06/28/2022 Appointment Pulmonary Medicine Rusty Vee M.D. [address] [place] [phone] 06/28/2022 Appointment Pulmonary Medicine Rusty Vee M.D. [address] [place] [phone] documented as of this encounter Procedures Procedure Name Priority Date/Time Associated Comments Diagnosis PROTHROMBIN TIME Routine 03/30/2017 8:00 AM Resul ts for this (PT), P CDT procedure are i n the results section. documented in this encounter Results (ABNORMAL) PT (Prothrombin Time) with INR (03/30/2017 8:00 AM CDT) [facility] Method Time Signature Prothrombin 34.7 (H) 8.8 [...] on filedocumented in this encounter Care Teams Progressive Care Manager Relationship Specialty Start Date End Date Tasha Henriquez M.D. PCP - General 12/08/16 05/23/18 EFRAÍN [place] [phone] documented as of this encounter
--- OUTSIDE RECORDS SUMMARY | 2022-05-25 21:03 | XMS_ITS | Encounter Summary ---
:1975 Author Organization [facility] Address [address] [place] [address] Care Team Providers Name Role Phone Sridhar Garibay M.D. Primary Care Provider Encounter Details Date Type Department Care Team Description 03/16/2017 Hospital Encounter [facility] Marsha Garibay M.D. [address] [place], [place] [address] (Wo rk) Social History [...] More than 4 times per year 05/04/2022 [employer]? Do you belong to any clubs [...] at Date Recorded Female 05/03/2022 7:07 PM RADIOLOGY RECEPTIONIST documented as of this encounter Last Filed [...] Appointment Laboratory Medicine Rusty Vee M.D. 200 [place] [phone] 06/22/2022 Diagnostic Pulmonary Medicine Rusty Vee M.D. [address] [place] [phone] 06/22/2022 Diagnostic Pulmonary Medicine Rusty Vee M.D. [address] [place] [phone] 06/22/2022 Appointment Radiology Rusty Vee M.D. [address] [place] [phone] 06/23/2022 Clinical Communication Admitting/Central Scheduling 06/28/2022 Appointment Pulmonary Medicine Rusty Vee M.D. [address] [place] [phone] 06/28/2022 Appointment Pulmonary Medicine Rusty Vee M.D. [address] [place] [phone] documented as of this encounter Visit Diagnoses Not on filedocumented in this encounter Care Teams Environmental Construction Engineer Relationship Specialty Start Date End Date Sridhar Garibay M.D. PCP - General 12/08/16 05/23/18 [address] [place] [phone] documented as of this encounter
--- OUTSIDE RECORDS SUMMARY | 2022-05-25 21:03 | XMS_ITS | Encounter Summary ---
:1975 Author Organization [facility] Address [address] [place] [address] Care Team Providers Name Role Phone Sridhar Garibay M.D. Primary Care Provider Encounter Details Date Type Department Care Team Description 06/15/2017 Anticoagulation Visit Department of Deepika Campo oagulant Therapy; Anticoagulation in Mima Simmons, Primary H ypercoagulation Syndrome (HCC) [place], [place] R.N. 701 [facility] [address] [place], [place] [address] [address] [place], [place] [phone] [address] Social History Tobacco Use Types Packs/Day [...] at Date Recorded Female 05/03/2022 7:07 PM PYTHON DEVELOPER documented as of this encounter Progress Notes Mima Campo RMichaelN. - 06/15/2017 11:35 AM CST Warfarin Maintenance [...] has no further questions at this time. ON DEVELOPER documented in this encounter Plan of Treatment Upcoming Encounters Date Type Specialty Care Team Description 06/22/2022 Appointment Laboratory Medicine Rusty Vee M.D. [address] [place] [address] 06/22/2022 Diagnostic Pulmonary Medicine Rusty Vee M.D. [address] [place] [phone] 06/22/2022 Diagnostic Pulmonary Medicine Rusty Vee M.D. [address] [place] [address] 06/22/2022 Appointment Radiology Rusty Vee M.D. [address] [place] [address] 06/23/2022 Clinical Communication Admitting/Central Scheduling 06/28/2022 Appointment Pulmonary Medicine Rusty Vee M.D. [address] [place] [address] 06/28/2022 Appointment Pulmonary Medicine Rusty Vee M.D. [address] [place] [address] documented as of this encounter Results (ABNORMAL) PT (Prothrombin Time) with INR (07/13/2017 8:00 AM PYTHON DEVELOPER) [facility] gist Method Time Signature Prothrombin 24.0 (H) 8.8 - 11.9 07/13/2017 [facility] Time, P sec 10:06 AM [facility] [employer] LAB INR 2.2 0.9 - 1.2 07/13/2017 [facility] 10:06 AM [facility] Comment: Standard intensity warfarin therapeutic range: 2.0 to 3.0 High intensity warfarin therapeutic rang e: 2.5 to 3.5 Specimen Anatomical Collection Method Collection Time Receive d Time (Source) Location / / Volume Laterality Blood (Blood, 07/13/2017 8:00 AM 07/13/19 18 9:19 Venous) PYTHON DEVELOPER AM PYTHON DEVELOPER Sridhar Garibay M.D. LAB BLOOD ADD-ON Performing Organization Address City/State/ZIP Code Phon e Number [facility] [address] [place] [address] [place] [facility] documented in this encounter Visit Diagnoses Diagnosis Anticoagulant Therapy Primary Hypercoagulation Syndrome (HCC) documented in this encounter Care Teams Sawmill Relief Worker Relationship Specialty Start Date End Date Sridhar Garibay M.D. PCP - General 12/08/16 05/23/18 Kailash1 EFRAÍN [place] [phone] documented as of this encounter
--- OUTSIDE RECORDS SUMMARY | 2022-05-25 21:03 | XMS_ITS | Encounter Summary ---
:1975 Author Organization [facility] Address [address] [place] [address] Care Team Providers Name Role Phone Sridhar Garibay M.D. Primary Care Provider Encounter Details Date Type Department Care Team Description 05/25/2017 Anticoagulation Visit Department of Holes, Antic oagulant Therapy; Anticoagulation in Arlette Haile Simmons H ypercoagulation Syndrome (HCC) [place], [place] RN [address] [place], [place] [address] [address] [place], [place] [phone] [address] Social History Tobacco Use Types Packs/Day [...] at Date Recorded Female 05/03/2022 7:07 PM ADMITTING COORDINATOR documented as of this encounter Progress Notes Chava Garza R.N. - 05/25/2017 2:01 PM CST Warfarin Maintenance Nursing Protocol Goal Range 2.0-3.0 (version approved 02/24/17) Visit Type: Telephone visit today. Primary reason for visit: Routine f/u OR f/u per previous visit recommendations Information provided by: patients Fabiola granados Inclusion Criteria: All inclusion criteria met. Proceeded [...] of warfarin dosing and next INR appointment. TTING COORDINATOR documented in this encounter Plan of Treatment Upcoming Encounters Date Type Specialty Care Team Description 06/22/2022 Appointment Laboratory Medicine Rusty Vee M.D. [address] [place] [phone] 06/22/2022 Diagnostic Pulmonary Medicine Rusty Vee M.D. [address] [place] [phone] 06/22/2022 Diagnostic Pulmonary Medicine Rusty Vee M.D. [address] [place] [phone] 06/22/2022 Appointment Radiology Rusty Vee M.D. [address] [place] [phone] 06/23/2022 Clinical Communication Admitting/Central Scheduling 06/28/2022 Appointment Pulmonary Medicine Rusty Vee M.D. [address] [place] [phone] 06/28/2022 Appointment Pulmonary Medicine Rusty Vee M.D. [address] [place] [phone] documented as of this encounter Results (ABNORMAL) PT (Prothrombin Time) with INR (06/15/2017 8:00 AM ADMITTING COORDINATOR) [facility] Method Time Signature Prothrombin 28.0 (H) 8.8 - 11.9 06/15/2017 [facility] Time, P sec 9:24 AM [facility] INR 2.6 0.9 - 1.2 06/15/2017 [facility] 9:24 AM [facility] Comment: Standard intensity warfarin therapeutic range: 2.0 to 3.0 High intensity warfarin therapeutic rang e: 2.5 to 3.5 Specimen Anatomical Collection Method Collection Time Receive d Time (Source) Location / / Volume Laterality Blood (Blood, 06/15/2017 8:00 AM 06/15/20 17 9:06 Venous) ADMITTING COORDINATOR AM ADMITTING COORDINATOR Sridhar Garibay M.D. LAB BLOOD ADD-ON Performing Organization Address City/State/ZIP Code Phon e Number [facility] [address] [place] [address] [place] [facility] documented in this encounter Visit Diagnoses Diagnosis Anticoagulant Therapy Primary Hypercoagulation Syndrome (HCC) documented in this encounter Care Teams Cow Tender Relationship Specialty Start Date End Date Sridhar Garibay M.D. PCP - General 12/08/16 05/23/18 [place] [phone] documented as of this encounter
--- OUTSIDE RECORDS SUMMARY | 2022-05-25 21:03 | XMS_ITS | Encounter Summary ---
:1975 Author Organization [facility] Address [address] [place] [address] Care Team Providers Name Role Phone Sridhar Garibay M.D. 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 [address] [place] [address] 06/22/2022 Diagnostic Pulmonary Medicine Rusty Vee M.D. [address] [place] [phone] 06/22/2022 Diagnostic Pulmonary Medicine Rusty Vee M.D. [address] [place] [phone] 06/22/2022 Appointment Radiology Rusty Vee M.D. [address] [place] [phone] 06/23/2022 Clinical Communication Admitting/Central Scheduling 06/28/2022 Appointment Pulmonary Medicine Rusty Vee M.D. [address] [place] [phone] 06/28/2022 Appointment Pulmonary Medicine Rusty Vee M.D. [address] [place] [phone] documented as of this encounter Visit Diagnoses Not on filedocumented in this encounter Care Teams Knot Borer Relationship Specialty Start Date End Date Sridhar Garibay M.D. PCP - General 12/08/16 05/23/18 [address] [place] [phone] documented as of this encounter
--- OUTSIDE RECORDS SUMMARY | 2022-05-25 21:03 | XMS_ITS | Encounter Summary ---
:1975 Author Organization [facility] Address [address] [place] [address] Care Team Providers Name Role Phone Sridhar Garibay M.D. Primary Care Provider Encounter Details Date Type Department Care Team Description 05/11/2017 Anticoagulation Visit Department of [facility], [facility] oagulant Anticoagulation in [facility] Margareth Simmons ( Primary [place], [place] R.N. 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 - 05/11/2017 11:39 AM CST Warfarin Maintenance [...] No Patient Visit summary provided to: Fabiola Heaton repeats back dosing instructions and has no furtherquestions at this time. LASS ASSEMBLER documented in this encounter Plan of Treatment Upcoming Encounters Date Type Specialty Care Team Description 06/22/2022 Appointment Laboratory Medicine Rusty Vee M.D. 200 [place] [phone] 06/22/2022 Diagnostic Pulmonary Medicine Rusty Vee M.D. [address] [place] [phone] 06/22/2022 Diagnostic Pulmonary Medicine Rusty Vee M.D. [address] [place] [phone] 06/22/2022 Appointment Radiology Rusty Vee M.D. [address] [place] [phone] 06/23/2022 Clinical Communication Admitting/Central Scheduling 06/28/2022 Appointment Pulmonary Medicine Rusty Vee M.D. [address] [place] [phone] 06/28/2022 Appointment Pulmonary Medicine Rusty Vee M.D. [address] [place] [phone] documented as of this encounter Results (ABNORMAL) PT (Prothrombin Time) with INR (05/17/2017 3:26 PM EYEGLASS ASSEMBLER) [facility] Method Time Signature Prothrombin 20.4 (H) 8.8 - 11.9 05/17/2017 [facility] Time, P sec 3:49 PM [facility] INR 1.9 0.9 - 1.2 05/17/2017 [facility] 3:49 PM [facility] Comment: Standard intensity warfarin therapeutic range: 2.0 to 3.0 High intensity warfarin therapeutic rang e: 2.5 to 3.5 Specimen Anatomical Collection Method Collection Time Receive d Time (Source) Location / / Volume Laterality Blood (Blood, 05/17/2017 3:26 PM 05/17/20 3:28 Venous) EYEGLASS ASSEMBLER PM EYEGLASS ASSEMBLER Sridhar Garibay M.D. LAB BLOOD ADD-ON Performing Organization Address City/State/ZIP Code Phon e Number [facility] 701 [facility] [place] [address] [place] [facility] documented in this encounter Visit Diagnoses Diagnosis Anticoagulant Therapy - Primary documented in this encounter Care Teams Assessment Specialist Relationship Specialty Start Date End Date Sridhar Garibay M.D. PCP - General 12/08/16 05/23/18 [address] [place] [phone] documented as of this encounter
--- OUTSIDE RECORDS SUMMARY | 2022-05-25 21:03 | XMS_ITS | Encounter Summary ---
:1975 Author Organization [facility] Address [address] [place] [address] Care Team Providers Name Role Phone Sridhar Garibay M.D. Primary Care Provider Encounter Details Date Type Department Care Team Description 07/13/2017 Anticoagulation Visit Department of Deepika Lazcano oagulant Therapy; Anticoagulation in Haile Leon H ypercoagulation Syndrome (HCC) [place], [place] R.N. 701 [place] [phone] Social History Tobacco Use Types Packs/Day Years [...] at Date Recorded Female 05/03/2022 7:07 PM AGILE SCRUM MASTER documented as of this encounter Progress Notes Radha Lazcano R.N. - 07/13/2017 10:35 AM CST Warfarin Maintenance [...] no further questions at this time. E SCRUM MASTER documented in this encounter Plan of Treatment Upcoming Encounters Date Type Specialty Care Team Description 06/22/2022 Appointment Laboratory Medicine Rusty Vee M.D. [address] [place] [phone] 06/22/2022 Diagnostic Pulmonary Medicine Rusty Vee M.D. [address] [place] [phone] 06/22/2022 Diagnostic Pulmonary Medicine Rusty Vee M.D. [address] [place] [phone] 06/22/2022 Appointment Radiology Rusty Vee M.D. [address] [place] [phone] 06/23/2022 Clinical Communication Admitting/Central Scheduling 06/28/2022 Appointment Pulmonary Medicine Rusty Vee M.D. [address] [place] [phone] 06/28/2022 Appointment Pulmonary Medicine Rusty Vee M.D. [address] [place] [address] documented as of this encounter Procedures Procedure Name Priority Date/Time Associated Diagnosis Comme nts PROTHROMBIN TIME (PT), Routine 07/13/2017 Resul ts for this P procedure are i n the results section . documented in this encounter Results (ABNORMAL) PT (Prothrombin Time) with INR (08/10/2017 8:00 AM AGILE SCRUM MASTER) Patholo gist Method Time Signature Prothrombin 22.9 (H) 8.8 - 11.9 08/10/2017 [facility] Time, P sec 9:50 AM AGILE SCRUM MASTER [facility] [employer] LAB INR 2.2 0.9 - 1.2 08/10/2017 [facility] 9:50 AM [facility] [employer] [facility] Comment: Standard intensity warfarin therapeutic range: 2.0 to 3.0 High intensity warfarin therapeutic rang e: 2.5 to 3.5 Specimen Anatomical Collection Method Collection Time Receive d Time (Source) Location / / Volume Laterality Blood (Blood, 08/10/2017 8:00 AM 08/10/19 18 9:24 Venous) AGILE SCRUM MASTER AM AGILE SCRUM MASTER Sridhar Garibay M.D. LAB BLOOD ADD-ON Performing Organization Address City/[facility]/ZIP Code Phon e Number [facility] 701 [facility] [place] [address] [place] [facility] PT (Prothrombin Time) with INR (07/13/2017) [...] (HCC) documented in this encounter Care Teams Vault Keeper Relationship Specialty Start Date End Date Sridhar Garibay M.D. PCP - General 12/08/16 05/23/18 [address] [place] [phone] documented as of this encounter
--- OUTSIDE RECORDS SUMMARY | 2022-05-25 21:03 | XMS_ITS | Encounter Summary ---
:1975 Author Organization [facility] Address [address] [place] [address] Care Team Providers Name Role Phone Sridhar Garibay M.D. Primary Care Provider Encounter Details Date Type Department Care Team Description 04/20/2017 Orders Only Department of Family Sridhar Garibay embolism and thrombosis of unspecified deep veins of unspecified lower extremity (HCC); Medicine, Yovanny Helton M.D. Other Primary Thrombophilia (HCC); Clinic, in [place], [address] General Medical Examination Adult [place], [place] [address] [address] [place], [place] [phone] (Work) [phone] Social History Tobacco Use Types Packs/Day Years [...] or relatives? How often do you attend christian or More than 4 times per year 05/04/2022 spiritism services? Do you belong to any clubs or Yes 05/04/2022 organizations such as christian groups, unions, fraternal or athletic groups, or [...] at Date Recorded Female 05/03/2022 7:07 PM DEPLOYMENT MANAGER documented as of this encounter Plan of Treatment Upcoming Encounters Date Type Specialty Care Team Description 06/22/2022 Appointment Laboratory Medicine Rusty Vee M.D. [address] [place] [phone] 06/22/2022 Diagnostic Pulmonary Medicine Rusty Vee M.D. [address] [place] [phone] 06/22/2022 Diagnostic Pulmonary Medicine Rusty Vee M.D. [address] [place] [phone] 06/22/2022 Appointment Radiology Rusty Vee M.D. [address] [place] [phone] 06/23/2022 Clinical Communication Admitting/Central Scheduling 06/28/2022 Appointment Pulmonary Medicine Rusty Vee M.D. [address] [place] [phone] 06/28/2022 Appointment Pulmonary Medicine Rusty Vee M.D. [address] [place] [phone] documented as of this encounter Results (ABNORMAL) PT (Prothrombin Time) with INR (08/29/2018 7:40 AM DEPLOYMENT MANAGER) [facility] Method Time Signature Prothrombin 19.9 (H) 8.8 - 11.9 08/29/2018 [facility] Time, P sec 7:54 AM DEPLOYMENT MANAGER [facility] [employer] LAB INR 1.9 0.9 - 1.2 08/29/2018 [facility] 7:54 AM [facility] Comment: Standard intensity warfarin therapeutic range: 2.0 to 3.0 High intensity warfarin therapeutic rang e: 2.5 to 3.5 Specimen Anatomical Collection Method Collection Time Receive d Time (Source) Location / / Volume Laterality Blood 08/29/2018 7:40 AM 9 7:42 DEPLOYMENT MANAGER AM DEPLOYMENT MANAGER Sridhar Garibay M.D. LAB BLOOD ADD-ON Performing Organization Address City/State/ZIP Code Phon e Number [facility] [address] [place] [address] [place] [address] [facility] (ABNORMAL) PT (Prothrombin Time) with INR (05/11/2017 8:00 AM DEPLOYMENT MANAGER) [facility] Method Time Signature Prothrombin 40.5 (H) 8.8 - 11.9 05/11/2017 [facility] Time, P sec 10:03 AM [facility] [employer] LAB INR 3.5 0.9 - 1.2 05/11/2017 [facility] 10:03 AM [facility] [employer] LAB Comment: Standard intensity warfarin therapeutic range: 2.0 to 3.0 High intensity warfarin therapeutic rang e: 2.5 to 3.5 Specimen Anatomical Collection Method Collection Time Receive d Time (Source) Location / / Volume Laterality Blood 05/11/2017 8:00 AM 7 9:36 DEPLOYMENT MANAGER AM DEPLOYMENT MANAGER Sridhar Garibay M.D. LAB BLOOD ADD-ON Performing Organization Address City/State/ZIP Code Phon e Number [facility] [address] [place] [address] [place] [facility] documented in this encounter Visit Diagnoses Diagnosis Acute embolism and thrombosis of unspeci fied deep veins of unspecified lower extremity (HCC) Acute embolism and thrombosis of unspeci fied deep veins of unspecified lower extremity Other Primary Thrombophilia (HCC) General Medical Examination Adult documented in this encounter Care Teams Human Resources Intern Relationship Specialty Start Date End Date Sridhar Garibay M.D. PCP - General 12/08/16 05/23/18 [address] [place] [phone] documented as of this encounter
--- OUTSIDE RECORDS SUMMARY | 2022-05-25 21:03 | XMS_ITS | Encounter Summary ---
:1975 Author Organization [facility] Address [address] [place] [address] Care Team Providers Name Role Phone Sridhar Garibay M.D. Primary Care Provider Encounter Details Date Type Department Care Team Description 02/15/2017 Hospital Encounter [facility] Deyanira Garcia APRN, C.N.P., D.N.P. [address] [place], [place] [phone] (Wo rk) Social History [...] at Date Recorded Female 05/03/2022 7:07 PM PHOTO MASK CLEANER documented as of this encounter Last Filed [...] Appointment Laboratory Medicine Rusty Vee M.D. 200 [place] [phone] 06/22/2022 Diagnostic Pulmonary Medicine Rusty Vee M.D. [address] [place] [phone] 06/22/2022 Diagnostic Pulmonary Medicine Rusty Vee M.D. [address] [place] [phone] 06/22/2022 Appointment Radiology Rusty Vee M.D. [address] [place] [phone] 06/23/2022 Clinical Communication Admitting/Central Scheduling 06/28/2022 Appointment Pulmonary Medicine Rusty Vee M.D. [address] [place] [address] 06/28/2022 Appointment Pulmonary Medicine Rusty Vee M.D. [address] [place] [phone] documented as of this encounter Visit Diagnoses Not on filedocumented in this encounter Care Teams Vocational Teacher Relationship Specialty Start Date End Date Sridhar Garibay M.D. PCP - General 12/08/16 05/23/18 [address] [place] [phone] documented as of this encounter
--- OUTSIDE RECORDS SUMMARY | 2022-05-25 21:03 | XMS_ITS | Encounter Summary ---
:[address] [facility] Address [address] [place] [address] Care Team Providers Name Role Phone Sridhar Garibay M.D. Primary Care Provider Encounter Details Date Type Department Care Team Description 05/17/2017 Hospital Encounter Department of Isrrael Garibay Therapy Laboratory Medicine Sridhar Helton M.D. in [place], [address] [place], [place] 701 [facility] [address] [place], [place] [phone] (Work) [phone] Social History Tobacco Use Types Packs/Day Years [...] More than 4 times per year 05/04/2022 confucianist services? 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 [address] [place] [phone] 06/22/2022 Diagnostic Pulmonary Medicine Rusty Vee M.D. [address] [place] [phone] 06/22/2022 Diagnostic Pulmonary Medicine Rusty Vee M.D. [address] [place] [phone] 06/22/2022 Appointment Radiology Rusty Vee M.D. [address] [place] [phone] 06/23/2022 Clinical Communication Admitting/Central Scheduling 06/28/2022 Appointment Pulmonary Medicine Rusty Vee M.D. [address] [place] [address] 06/28/2022 Appointment Pulmonary Medicine Rusty Vee M.D. [address] [place] [phone] documented as of this encounter Procedures Procedure Name Priority Date/Time Associated Diagnosis Comme nts PROTHROMBIN TIME Routine 05/17/2017 3:26 PM Anticoagulant Ther apy Results for this (PT), P REPLANTING MACHINE CREWMAN procedure are i n the results section. documented in this encounter Results (ABNORMAL) PT (Prothrombin Time) with INR (05/17/2017 3:26 PM REPLANTING MACHINE CREWMAN) [facility] Method Time Signature Prothrombin 20.4 (H) 8.8 - 11.9 05/17/[address] [facility] Time, P sec 3:49 PM [facility] INR 1.9 0.9 - 1.2 05/17/[address] [facility] 3:49 PM [facility] Comment: Standard intensity warfarin therapeutic range: 2.0 to 3.0 High intensity warfarin therapeutic rang e: 2.5 to 3.5 Specimen Anatomical Collection Method Collection Time Receive d Time (Source) Location / / Volume Laterality Blood (Blood, 05/17/2017 3:26 PM 05/17/20 17 3:28 Venous) REPLANTING MACHINE CREWMAN PM REPLANTING MACHINE CREWMAN Sridhar Garibay M.D. LAB BLOOD ADD-ON Performing Organization Address City/State/ZIP Code Phon e Number [facility] [address] [place] [address] [place] [facility] documented in this encounter Visit Diagnoses Diagnosis Anticoagulant Therapy documented in this encounter Care Teams Testing Specialist Relationship Specialty Start Date End Date Sridhar Garibay M.D. PCP - General 12/08/16 05/23/18 [place] [phone] documented as of this encounter
--- OUTSIDE RECORDS SUMMARY | 2022-05-25 21:03 | XMS_ITS | Encounter Summary ---
:1975 Author Organization [facility] Address [address] [place] [address] Care Team Providers Name Role Phone Sridhar Garibay M.D. Primary Care Provider Encounter Details Date Type Department Care Team Description 02/16/2017 Hospital Encounter HX [facility] Marsha Garibay M.D. 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 200 [place] [phone] 06/22/2022 Diagnostic Pulmonary Medicine Rusty Vee M.D. [address] [place] [phone] 06/22/2022 Diagnostic Pulmonary Medicine Rusty Vee M.D. [address] [place] [phone] 06/22/2022 Appointment Radiology Rusty Vee M.D. [address] [place] [phone] 06/23/2022 Clinical Communication Admitting/Central Scheduling 06/28/2022 Appointment Pulmonary Medicine Rusty Vee M.D. [address] [place] [phone] 06/28/2022 Appointment Pulmonary Medicine Rusty Vee M.D. [address] [place] [phone] documented as of this encounter Visit Diagnoses Not on filedocumented in this encounter Care Teams Beveller Operator Relationship Specialty Start Date End Date Sridhar Garibay M.D. PCP - General 12/08/16 05/23/18 [address] [place] [address] documented as of this encounter
--- OUTSIDE RECORDS SUMMARY | 2022-05-25 21:03 | XMS_ITS | Encounter Summary ---
:1975 Author Organization [facility] Address [address] [place] [address] Care Team Providers Name Role Phone Sridhar Garibay M.D. Primary Care Provider Encounter Details Date Type Department Care Team Description 05/11/2017 Hospital Encounter Department of Phoebe Garibay [facility] and Laboratory Medicine Sridhar Helton M.D. thrombosis of in [place], [address] unspecified deep [place], [place] veins of unspecified [address] [address] lower extremity (HCC) [place], [place] [phone] [address] (Work) [phone] Social History Tobacco Use Types Packs/Day Years [...] at Date Recorded Female 05/03/2022 7:07 PM MILITARY SCIENCE TEACHER documented as of this encounter Medications at [...] Laboratory Medicine Rusty Vee M.D. [address] [place] [phone] 06/22/2022 Diagnostic Pulmonary Medicine Rusty Vee M.D. [address] [place] [phone] 06/22/2022 Diagnostic Pulmonary Medicine Rusty Vee M.D. [address] [place] [phone] 06/22/2022 Appointment Radiology Rusty Vee M.D. [address] [place] [phone] 06/23/2022 Clinical Communication Admitting/Central Scheduling 06/28/2022 Appointment Pulmonary Medicine Rusty Vee M.D. [address] [place] [address] 06/28/2022 Appointment Pulmonary Medicine Rusty Vee M.D. [address] [place] [address] documented as of this encounter Procedures Procedure Name Priority Date/Time Associated Diagnosis Comme nts PROTHROMBIN TIME Routine 05/11/2017 8:00 AM Acute Embolism And Results for this (PT), P MILITARY SCIENCE TEACHER Thrombosis Of procedure are in Unspecified Deep the results Veins Of Unspecified section . Lower Extremity (Hcc) documented in this encounter Results (ABNORMAL) PT (Prothrombin Time) with INR (05/11/2017 8:00 AM MILITARY SCIENCE TEACHER) [facility] Method Time Signature Prothrombin 40.5 (H) 8.8 - 11.9 05/11/2017 [facility] Time, P sec 10:03 AM [facility] INR 3.5 0.9 - 1.2 05/11/2017 [facility] 10:03 AM [facility] [employer] [facility] Comment: Standard intensity warfarin therapeutic range: 2.0 to 3.0 High intensity warfarin therapeutic rang e: 2.5 to 3.5 Specimen Anatomical Collection Method Collection Time Receive d Time (Source) Location / / Volume Laterality Blood 05/11/2017 8:00 AM 7 9:36 MILITARY SCIENCE TEACHER AM MILITARY SCIENCE TEACHER Sridhar Garibay M.D. LAB BLOOD ADD-ON Performing Organization Address City/State/ZIP Code Phon e Number [facility] [address] [address] [place] [facility] documented in this encounter Visit Diagnoses Diagnosis Acute embolism and thrombosis of unspeci fied deep veins of unspecified lower extremity (HCC) Acute embolism and thrombosis of unspeci fied deep veins of unspecified lower extremity documented in this encounter Care Teams Down Filler Relationship Specialty Start Date End Date Sridhar Garibay M.D. PCP - General 12/08/16 05/23/18 [place] [phone] documented as of this encounter
--- OUTSIDE RECORDS SUMMARY | 2022-05-25 21:03 | XMS_ITS | Encounter Summary ---
:1975 Author Organization [facility] Address [address] [place] [address] Care Team Providers Name Role Phone Sridhar Garibay M.D. Primary Care Provider Encounter Details Date Type Department Care Team Description 05/25/2017 Hospital Encounter Department of Clyde Garibay Laboratory Medicine Sridhar Helton M.D. ([facility]) in [place], [address] [place], [place] 701 [facility] [address] [place], [place] [phone] (Work) [phone] Social History Tobacco Use Types Packs/Day Years [...] at Date Recorded Female 05/03/2022 7:07 PM TUBE DRAWING SUPERVISOR documented as of this encounter Medications [...] Appointment Laboratory Medicine Rusty Vee M.D. 200 [place] [phone] 06/22/2022 Diagnostic Pulmonary Medicine Rusty Vee M.D. 200 [place] [address] 06/22/2022 Diagnostic Pulmonary Medicine Rusty Vee M.D. 200 [place] [address] 06/22/2022 Appointment Radiology Rusty Vee M.D. 200 [place] [address] 06/23/2022 Clinical Communication Admitting/Central Scheduling 06/28/2022 Appointment Pulmonary Medicine Rusty Vee M.D. [address] [place] [address] 06/28/2022 Appointment Pulmonary Medicine Rusty Vee M.D. [address] [place] [address] documented as of this encounter Procedures Procedure Name Priority Date/Time Associated Comments Diagnosis PROTHROMBIN TIME Routine 05/25/2017 8:05 AM Deficiency Protein Results for this (PT), P TUBE DRAWING SUPERVISOR S (HCC) procedure are i n the results section. documented in this encounter Results (ABNORMAL) PT (Prothrombin Time) with INR (05/25/2017 8:05 AM TUBE DRAWING SUPERVISOR) [facility] Method Time Signature Prothrombin 29.1 (H) 8.8 - 11.9 05/25/2017 [facility] Time, P sec 11:40 AM [facility] INR 2.6 0.9 - 1.2 05/25/2017 [facility] 11:40 AM [facility] Comment: Standard intensity warfarin therapeutic range: 2.0 to 3.0 High intensity warfarin therapeutic rang e: 2.5 to 3.5 Specimen Anatomical Collection Method Collection Time Receive d Time (Source) Location / / Volume Laterality Blood (Blood, 05/25/2017 8:05 AM 05/25/20 17 Venous) TUBE DRAWING SUPERVISOR 11:15 AM TUBE DRAWING SUPERVISOR Sridhar Garibay M.D. 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 PCP - General 12/08/16 05/23/18 [place] [place] [phone] documented as of this encounter
--- OUTSIDE RECORDS SUMMARY | 2022-05-25 21:03 | XMS_ITS | Encounter Summary ---
:1975 Author Organization [facility] Address [address] [place] [address] Care Team Providers Name Role Phone Sridhar Garibay M.D. Primary Care Provider Encounter Details Date Type Department Care Team Description 07/13/2017 Hospital Encounter Department of Haile Garibay Hypercoagulation Laboratory Medicine Sridhar Helton M.D. Syndrome (HCC) in [place], [address] [place], [place] [address] [address] [place], [place] [phone] (Work) [phone] Social History Tobacco Use Types Packs/Day Years [...] at Date Recorded Female 05/03/2022 7:07 PM OTC CLERK documented as of this encounter Medications [...] Appointment Laboratory Medicine Rusty Vee M.D. 200 [place] [address] 06/22/2022 Diagnostic Pulmonary Medicine Rusty Vee M.D. 200 [place] [phone] 06/22/2022 Diagnostic Pulmonary Medicine Rusty Vee M.D. 200 [place] [address] 06/22/2022 Appointment Radiology Rusty Vee M.D. [address] [place] [phone] 06/23/2022 Clinical Communication Admitting/Central Scheduling 06/28/2022 Appointment Pulmonary Medicine Rusty Vee M.D. [address] [place] [address] 06/28/2022 Appointment Pulmonary Medicine Rusty Vee M.D. [address] [place] [address] documented as of this encounter Procedures Procedure Name Priority Date/Time Associated Diagnosis Comme nts PROTHROMBIN TIME Routine 07/13/2017 8:00 Primary Hypercoagulat ion Results for this (PT), P AM OTC CLERK Syndrome (HCC) procedure are in the results section. documented in this encounter Results (ABNORMAL) PT (Prothrombin Time) with INR (07/13/2017 8:00 AM OTC CLERK) [facility] Method Time Signature Prothrombin 24.0 (H) 8.8 - 11.9 07/13/2017 [facility] Time, P sec 10:06 AM [facility] INR 2.2 0.9 - 1.2 07/13/2017 [facility] 10:06 AM [facility] Comment: Standard intensity warfarin therapeutic range: 2.0 to 3.0 High intensity warfarin therapeutic rang e: 2.5 to 3.5 Specimen Anatomical Collection Method Collection Time Receive d Time (Source) Location / / Volume Laterality Blood (Blood, 07/13/2017 8:00 AM 07/13/19 18 9:19 Venous) OTC CLERK AM OTC CLERK Sridhar Garibay M.D. LAB BLOOD ADD-ON Performing Organization Address City/State/ZIP Code Phon e Number [facility] [address] [place] [address] [facility] documented in this encounter Visit Diagnoses Diagnosis Primary Hypercoagulation Syndrome (HCC) documented in this encounter Care Teams Commercial Green Building Designer Relationship Specialty Start Date End Date Sridhar Garibay M.D. PCP - General 12/08/16 05/23/18 [place] [phone] documented as of this encounter
--- OUTSIDE RECORDS SUMMARY | 2022-05-25 21:03 | XMS_ITS | Encounter Summary ---
:1975 Author Organization [facility] Address [address] [place] [address] Care Team Providers Name Role Phone Sridhar Garibay M.D. Primary Care Provider Encounter Details Date Type Department Care Team Description 06/15/2017 Hospital Encounter Department of Isrrael Garibay Therapy; Laboratory Medicine Sridhar Helton M.D. Primary Hypercoagulation Syndrome (HCC) in [facility] [address] [place], [place] [address] [facility] [address] [place], [place] [phone] (Work) [phone] Social History Tobacco Use Types Packs/Day Years [...] or relatives? How often do you attend alevism or More than 4 times per year 05/04/2022 muslim services? Do you belong to any clubs or Yes 05/04/2022 organizations such as alevism groups, unions, fraternal or athletic groups, or [...] at Date Recorded Female 05/03/2022 7:07 PM PLANT CHIEF documented as of this encounter Medications at [...] Appointment Laboratory Medicine Rusty Vee M.D. 200 [place] [address] 06/22/2022 Diagnostic Pulmonary Medicine Rusty Vee M.D. 200 [place] [address] 06/22/2022 Diagnostic Pulmonary Medicine Rusty Vee M.D. [address] [place] [phone] 06/22/2022 Appointment Radiology Rusty Vee M.D. [address] [place] [phone] 06/23/2022 Clinical Communication Admitting/Central Scheduling 06/28/2022 Appointment Pulmonary Medicine Rusty Vee M.D. [address] [place] [address] 06/28/2022 Appointment Pulmonary Medicine Rusty Vee M.D. [address] [place] [address] documented as of this encounter Procedures Procedure Name Priority Date/Time Associated Diagnosis Comme nts PROTHROMBIN TIME Routine 06/15/2017 8:00 Anticoagulant T herapy Results for this (PT), P AM PLANT CHIEF Primary Hypercoagulation pro cedure are in Syndrome (HCC) the results section. documented in this encounter Results (ABNORMAL) PT (Prothrombin Time) with INR (06/15/2017 8:00 AM PLANT CHIEF) [facility] Method Time Signature Prothrombin 28.0 (H) 8.8 - 11.9 06/15/2017 [facility] Time, P sec 9:24 AM [facility] INR 2.6 0.9 - 1.2 06/15/2017 [facility] 9:24 AM [facility] Comment: Standard intensity warfarin therapeutic range: 2.0 to 3.0 High intensity warfarin therapeutic rang e: 2.5 to 3.5 Specimen Anatomical Collection Method Collection Time Receive d Time (Source) Location / / Volume Laterality Blood (Blood, 06/15/2017 8:00 AM 06/15/20 17 9:06 Venous) PLANT CHIEF AM PLANT CHIEF Sridhar Garibay M.D. LAB BLOOD ADD-ON Performing Organization Address City/State/ZIP Code Phon e Number [facility] [address] [place] [address] [place] documented in this encounter Visit Diagnoses Diagnosis Anticoagulant Therapy Primary Hypercoagulation Syndrome (HCC) documented in this encounter Care Teams Social Work Program Coordinator Relationship Specialty Start Date End Date Sridhar Garibay M.D. PCP - General 12/08/16 05/23/18 [email or web address] [place] [phone] documented as of this encounter
--- OUTSIDE RECORDS SUMMARY | 2022-05-25 21:03 | XMS_ITS | Encounter Summary ---
:1975 Author Organization [facility] Address [address] [place] [address] Care Team Providers Name Role Phone Tasha Henriquez M.D. Primary Care Provider Encounter Details Date Type Department Care Team Description 04/20/2017 Hospital Encounter HX [facility] Marsha Henriquez M.D. [address] [place], [place] [address] (Wo rk) Social History [...] at Date Recorded Female 05/03/2022 7:07 PM CHIEF CATALYST OPERATOR documented as of this encounter Last [...] this encounter Miscellaneous Notes Miscellaneous - Jeff Loco, R.N. - 04/20/2017 10:17 AM CDT Anticoagulation Patient Intake Anticoagulation Patient Intake Entered On: 04/20/2017 10:18 CDT Performed On: 04/20/2017 10:17 CDT by JEFF LOCO RN Plan INR goal range : 2.0 - 3.0 Duration of Therapy : Lifelong Tablet Size : 2 mg, 5 mg JEFF LCOO RN - 04/20/2017 10:17 CDT Anticoagulation Management [...] : JEFF Cheng RN - 04/20/2017 10:17 JEFF MCGILL RN [...] Date : 04/17/2014 CDT 04/24/2014 CDT 05/01/2014 CHIEF CATALYST OPERATOR 05/15/2014 CHIEF CATALYST OPERATOR Location of INR sample : Lab [...] will trynoted dose called to mom Fabiola [phone] called to Fabiola/no changes Called to mother/Fabiola, not awareof any changes Recommend Recheck : One week One week Two weeks Two weeks Plan completed by : JEFF DENNIS RN - 04/20/2017 10:17 CDT JEFF LOCO RN - 04/20/2017 10:17 CDT JEFF LOCO RN - 04/20/2017 10:17 CDT JEFF LOCO RN - 04/20/2017 10:17 CDT Date : 06/03/2014 CHIEF CATALYST OPERATOR 06/05/2014 CHIEF CATALYST OPERATOR 06/10/2014 CHIEF CATALYST OPERATOR 06/11/2014 CHIEF CATALYST OPERATOR Location of INR sample : Lab [...] Called motherFabiola. Hue will be staying in [place] 2wks post-surgery & have INR drawn there. [...] lovenox tomorrow AM as ordered. INR in [place] for next several weeks as pt will be recovering there. Recommend Recheck : Other: depending on Dr. Henriquez's preop. Other: 06/18 Other: 06/13/14 Plan completed by : JK JK JM JEFF CARTER RN - 04/20/2017 10:17 JEFF MCGILL RN - 04/20/2017 10:17 JEFF MCGILL RN - 04/20/2017 10:17 JEFF MCGILL RN - 04/20/2017 10:17 CDT Date : 06/14/2014 CHIEF CATALYST OPERATOR 06/14/2014 CHIEF CATALYST OPERATOR 06/16/2014 CHIEF CATALYST OPERATOR 06/23/2014 CHIEF CATALYST OPERATOR Location of INR sample : Clinic [...] Warfarin Dose : 20 20 Comment : [place] lab called with INR result from 06/13, reported they left a message with Dr. Henriquez and hadn't heard back, spoke with mother, Fabiola, and gave doses, continue Lovenox and repeat INR 06/16, message left with INR clinic in to contact [place] Please contact [place] lab on 06/16 for result and may call Fabiola at [phone] with instructions call to Fabiola/will stop Lovenox injections and take noted dose/pt has an appt here in [place] 06/23 so will do lab appt here that day Called to Fabiola/ Hue will be back at [facility] by next draw. will have done on . no changes to meds/diet. Recommend Recheck : Two days One week Two weeks Plan completed by : JEFF Acevedo LM RN - 04/20/2017 10:17 JEFF MCGILL RN - 04/20/2017 10:17 JEFF MCGILL RN - 04/20/2017 10:17 JEFF MCGILL RN - 04/20/2017 10:17 CDT Date : 07/10/2014 CHIEF CATALYST OPERATOR 07/17/2014 CHIEF CATALYST OPERATOR 07/31/2014 CHIEF CATALYST OPERATOR 09/11/2014 CDT Location of INR sample [...] : JEFF Sher RN - 04/20/2017 10:17 CDT JEFF LOCO [...] : JEFF Geller RN - 04/20/2017 10:17 CDT JEFF LOCO [...] is she is 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 Angelantoni/no bleeding/consult with Quintin/Pharmacy and called Mom with [...] this past wk & took Midol per Oniel, no Lovenox per Dr Henriquez, rev'd dose w/LZorn/Pharmacy Called to mom/Fabiola, no changes Recommend Recheck : Two weeks Three weeks One week Two weeks Plan completed by : JEFF Armenta RN - 04/20/2017 10:17 CDJEFF GOMEZ RN [...] 10:17 CDJEFF GOMEZ RN - 04/20/2017 10:17 PATRICIAT JEFF LOCO RN - 04/20/2017 10:17 CDJEFF GOMEZ RN - 04/20/2017 10:17 CDT Date : 04/09/2015 CDT 05/07/2015 CHIEF CATALYST OPERATOR 06/04/2015 CHIEF CATALYST OPERATOR 07/02/2015 CHIEF CATALYST OPERATOR Location of INR sample : Lab [...] : JEFF Doss RN - 04/20/2017 10:17 CDT JEFF LOCO RN - 04/20/2017 10:17 PATRICIAT JEFF LOCO RN - 04/20/2017 10:17 PATRICIAT JEFF LOCO RN - 04/20/2017 10:17 CDT Date : 08/06/2015 CHIEF CATALYST OPERATOR 09/17/2015 CDT 10/29/2015 CDT 11/12/2015 CDT [...] : JEFF Davis RN - 04/20/2017 10:17 CDT JEFF LOCO [...] : JEFF Ocasio RN - 04/20/2017 10:17 CDT JEFF LOCO RN - 04/20/2017 10:17 CDT JEFF LOCO RN - 04/20/2017 10:17 CDT JEFF LOCO RN - 04/20/2017 10:17 CDT Date : 02/19/2016 CDT 02/20/2016 CDT 02/21/2016 CDT 02/22/2016 CDT Location of INR sample : [facility] Type of Sample : Venous [...] Brizuela, Pharm.DMichael Brizuela, Pharm.D. BAUDILIO, PharmD Eliseo Quezada, ReaD. JEFF LOCO RN - 04/20/2017 10:17 CDT [...] PharmD. Tyshawn Brizuela, Pharm.D. Eliseo Quezada, ReaD. JEFF LOCO RN - 04/20/2017 10:17 CDT [...] mother states plan to return to [facility] on 03/06. next f/u will be in [facility]. 2mg TuWTh Rev'd with Jelly/Pharmacist,called to mom/Fabiola pt done with Bactrizuri Henriquez today pt is going back to with mom for another 1-2wks,she would like INR checked in but [place] [facility] Clinic to follow will send msg to INR Clinic Stay on 2.5mg daily Recommend Recheck : Three days Three days, Other: in [place] Other: 9/12/16 Other: 4 days Plan completed by : JEFF Zamora RN, RN, RN - 04/20/2017 10:17 CDJEFF GOMEZ RN [...] pt will be staying with sister in [facility] next week she will have INR drawn in [place] again called to Fabiola/pt to do next INR at on a ./no changes called to Fabiola/no changes called to Fabiola/Mom,no changes/missed doses Recommend Recheck : Other: 03/16/16 Other: 03/31/16(2 weeks) One month Two weeks Plan completed by : JENIFER OZZY ly JEFF ZAPATA RN - 04/20/2017 10:17 JEFF MCGILL RN - 04/20/2017 10:17 JEFF MCGILL RN - 04/20/2017 10:17 JEFF MCGILL RN - 04/20/2017 10:17 CDT Date : 05/11/2016 CHIEF CATALYST OPERATOR 05/12/2016 CHIEF CATALYST OPERATOR 05/17/2016 CHIEF CATALYST OPERATOR 05/24/2016 CHIEF CATALYST OPERATOR Location of INR sample : Other: Drawn in [place] Other: [place] Other: [place] Type of Sample : INR Result : 1.6 2.4 1.8 Warfarin Dose : 2.5mg daily 2.5mg daily 5mg 05/24 then 2.5mg daily Total Weekly Warfarin Dose : 17.5 Comment : Per Mom/Fabiola, pt disch from [facility] today, fell & fx left humerus 05/08, surg 05/09, INR 1.3 on 05/08, 1.5 on 05/09, 1.6 on 05/10 & 1.4 05/11, has had 2.5mg daily since 05/09, going to for INR 05/12 & result to be faxed to us, not on Lovenox rev'd with Terirmaci,called to mom/Fabiola,she will have it done in [place] again Tues Called to Mom/Fabiola, no changes Called to Mom/Fabiola, no missed doses, took pain pill last night, has not taken any for a while, no other changes Recommend Recheck : Other: 05/12/16 Other: 05/17/16 One week One week Plan completed by : JEFF ZIMMERMAN RN - 04/20/2017 10:17 CDT JEFF LOCO RN - 04/20/2017 10:17 CDT EJFF LOCO RN - 04/20/2017 10:17 CDT JEFF LOCO RN - 04/20/2017 10:17 CDT Date : 06/01/2016 CHIEF CATALYST OPERATOR 06/06/2016 CHIEF CATALYST OPERATOR 06/10/2016 CHIEF CATALYST OPERATOR 06/13/2016 CHIEF CATALYST OPERATOR Location of INR sample : Other: [facility] Other: [facility] Other: [facility] Type of Sample : INR Result : [...] : JEFF Orlando RN - 04/20/2017 10:17 PATRICIAT JEFF LOCO RN - 04/20/2017 10:17 JEFF MCGILL RN - 04/20/2017 10:17 CDT JEFF LOCO RN - 04/20/2017 10:17 CDT Date : 06/17/2016 CHIEF CATALYST OPERATOR 06/24/2016 CHIEF CATALYST OPERATOR 07/07/2016 CHIEF CATALYST OPERATOR 07/28/2016 CHIEF CATALYST OPERATOR Location of INR sample : Other: [facility] Other: [facility] Lab Type of Sample : [...] changes,pt is having tooth pulled 08/31/16 at [facility] Oral Surgery will need INR checked that am scheduled.letter faxed to [facility] oral surgery to see what INR needs leon Recommend Recheck : One week Other: 07/07/16 Three weeks Two weeks Plan completed by : JEFF GALE RN - 04/20/2017 10:17 CDT JEFF LOCO RN - 04/20/2017 10:17 JEFF MCGILL RN - 04/20/2017 10:17 JEFF MCGILL RN - 04/20/2017 10:17 CDT Date : 08/11/2016 CHIEF CATALYST OPERATOR 08/31/2016 CHIEF CATALYST OPERATOR 09/29/2016 CDT 10/27/2016 CDT Location of INR [...] surgeon's office and result faxed Called to Oniel, no changes or concerns Called to Fabiola,pts mother, no changes Recommend Recheck : Other: 08/31/16 One month One month One month Plan completed by : JENIFER JM ly OZZY JEFF LOCO RN - 04/20/2017 10:17 CDT [...] 25 25 25 Comment : called to Oniel/ has appt on 11/01 in [place]/may need surgery on non healing arm fx/surgery tentatively scheduled for 12/21/ calendar to check [facility] for pre-op instructions and schedule next INR Per Oniel, arm is healing, no surg at this time, may have in Feb, she will let us know Called to Oniel, no changes Called to Mom/Fabiola/no changes Recommend Recheck : Other: 12/22/16 One month One month Plan completed by : JEFF Hoskins RN - 04/20/2017 10:17 JEFF MCGILL RN - 04/20/2017 10:17 JEFF MCGILL RN - 04/20/2017 10:17 CDT JEFF LOCO [...] LOCO RN - 04/20/2017 10:17 CDT Source: [facility] POWERCHART Document Id: [id number] [id number] Miscellaneous - Jeff Loco RMichaelN. - 04/20/2017 9:45 AM CDT Results Notification [...] INR 2.8 (0.9 - 1.2) Source: [facility] Listiki Document Id: [id number] documented in this encounter Plan of Treatment Upcoming Encounters Date Type Specialty Care Team Description 06/22/2022 Appointment Laboratory Medicine Rusty Vee M.D. [address] [place] [phone] 06/22/2022 Diagnostic Pulmonary Medicine Rusty Vee M.D. [address] [place] [phone] 06/22/2022 Diagnostic Pulmonary Medicine Rusty Vee M.D. [address] [place] [phone] 06/22/2022 Appointment Radiology Rusty Vee M.D. [address] [place] [phone] 06/23/2022 Clinical Communication Admitting/Central Scheduling 06/28/2022 Appointment Pulmonary Medicine Rusty Vee M.D. [address] [place] [phone] 06/28/2022 Appointment Pulmonary Medicine Rusty Vee M.D. [address] [place] [phone] documented as of this encounter Procedures Procedure Name Priority Date/Time Associated Comments Diagnosis PROTHROMBIN TIME Routine 04/20/2017 8:00 AM Resul ts for this (PT), P CDT procedure are i n the results section. documented in this encounter Results (ABNORMAL) PT (Prothrombin Time) with INR (04/20/2017 8:00 AM CDT) [facility] Time Signature Prothrombin 31.6 (H) 8.8 - [...] on filedocumented in this encounter Care Teams Sodium Methylate Operator Relationship Specialty Start Date End Date Tasha Henriquez M.D. PCP - General 12/08/16 05/23/18 [address] [place] [phone] documented as of this encounter
--- OUTSIDE RECORDS SUMMARY | 2022-05-25 21:04 | XMS_ITS | Encounter Summary ---
:1975 Author Organization [facility] Address [address] [place] [address] Care Team Providers Name Role Phone Unavailable Primary Care Provider Unavailable Encounter Details Date Type Department Care Team Description 07/01/2016 Hospital Encounter HX [facility] Stoney Jameson M.D. [address] [place], [place] [address] (Wo rk) Social History [...] at Date Recorded Female 05/03/2022 7:07 PM CHEMICAL PUMPER documented as of this encounter Last Filed Vital Signs Vital Sign Reading Time Taken Comments Blood Pressure - - Pulse - - Temperature - - Respiratory Rate - - Oxygen Saturation - - Inhaled Oxygen Concentration - - Weight - - Height 146 cm (4' 9.48) 07/01/2016 9:01 AM CHEMICAL PUMPER Body Mass Index - - documented in [...] Letter July 21, 2016 DORITA MEDINA [address] [place] [phone] Dear DORITA MEDINA, Ultrasound is stable. New [...] (H) 6.13 07/01/2016 0.27 - 4.20 [facility] 07/01/2016 Sincerely, EMILY GALVAN [address] [id number] Electronic Signature Electronically Signed By: EMILY GALVAN MD On: July 21, 2016 This document has images extracted. Source: [facility] POWERCHART Document Id: [id number] Miscellaneous - Conversion, Historical Provider Ser - 07/01/2016 11:59 PM CHEMICAL PUMPER Coding Summary-Paper Based CODING DATE: 07/07/2016 FINAL [place] [facility] STATUS: * Discharged to Home or [...] OCONNELL Date Saved: 07/07/2016 03:37 pm Source: [facility] POWERCHART Document Id: [id number] documented in this encounter Plan of Treatment Upcoming Encounters Date Type Specialty Care Team Description 06/22/2022 Appointment Laboratory Medicine Rusty Vee M.D. [address] [place] [phone] 06/22/2022 Diagnostic Pulmonary Medicine Rusty Vee M.D. [address] [place] [phone] 06/22/2022 Diagnostic Pulmonary Medicine Rusty Vee M.D. [address] [place] [phone] 06/22/2022 Appointment Radiology Rusty Vee M.D. [address] [place] [phone] 06/23/2022 Clinical Communication Admitting/Central Scheduling 06/28/2022 Appointment Pulmonary Medicine Rusty Vee M.D. [address] [place] [phone] 06/28/2022 Appointment Pulmonary Medicine Rusty Vee M.D. [address] [place] [phone] documented as of this encounter Visit Diagnoses Not on filedocumented in this encounter
--- OUTSIDE RECORDS SUMMARY | 2022-05-25 21:04 | XMS_ITS | Encounter Summary ---
:1975 Author Organization [facility] Address [address] [place] [address] Care Team Providers Name Role Phone Sridhar [...] at Date Recorded Female 05/03/2022 7:07 PM C T TECH documented as of this encounter Medications at [...] FLUORIDE, SODIUM, DENTAL Apply 1 application 0 10 /04/2013 12/31/2019 topically 2 (two) times a day. [...] Appointment Laboratory Medicine Rusty Vee M.D. [address] [place] [phone] 06/22/2022 Diagnostic Pulmonary Medicine Rusty Vee M.D. [address] [place] [phone] 06/22/2022 Diagnostic Pulmonary Medicine Rusty Vee M.D. [address] [place] [phone] 06/22/2022 Appointment Radiology Rsuty Vee M.D. [address] [place] [phone] 06/23/2022 Clinical Communication Admitting/Central Scheduling 06/28/2022 Appointment Pulmonary Medicine Rusty Vee M.D. [address] [place] [phone] 06/28/2022 Appointment Pulmonary Medicine Rusty Vee M.D. [address] [place] [phone] documented as of this encounter Visit Diagnoses Not on filedocumented in this encounter Care Teams Site Supervising Technical Operator Relationship Specialty Start Date End Date Sridhar Garibay M.D. PCP - General 12/08/16 05/23/18 [place] [phone] documented as of this encounter
--- OUTSIDE RECORDS SUMMARY | 2022-05-25 21:04 | XMS_ITS | Encounter Summary ---
:1975 [facility] Address [address] [place] [id number] Care Team Providers Name Role Phone Unavailable Primary Care Provider Unavailable Encounter Details Date Type Department Care Team Description 07/07/2016 Hospital Encounter HX [facility] Marsha Henriquez M.D. [address] [place], [place] [address] (Wo rk) Social History [...] at Date Recorded Female 05/03/2022 7:07 PM WAITER AND CASHIER documented as of this encounter Last Filed Vital Signs Vital Sign Reading Time Taken Comments Blood Pressure - - Pulse - - Temperature - - Respiratory Rate - - Oxygen Saturation - - Inhaled Oxygen Concentration - - Weight - - Height 146 cm (4' 9.48) 07/07/2016 7:05 AM WAITER AND CASHIER Body Mass Index - - documented in [...] Notes Miscellaneous - Meli Campo, R.N. - 07/07/2016 9:57 AM CST Anticoagulation Patient Intake Anticoagulation Patient Intake Entered On: 07/07/2016 9:58 WAITER AND CASHIER Performed On: 07/07/2016 9:57 WAITER AND CASHIER by MELI CAMPO RN Plan INR goal range : 2.0 - 3.0 Duration of Therapy : Lifelong Tablet Size : 2 mg, 5 mg MELI CAMPO RN - 07/07/2016 9:57 WAITER AND CASHIER Anticoagulation Management Plan Grid Date : 09/05/2013 [...] completed by : MELI Vidal RN - 07/07/2016 9:57 WAITER AND CASHIER MELI CAMPO RN - 07/07/2016 9:57 MELI ROJO RN - 07/07/2016 9:57 MELI ROJO RN - 07/07/2016 9:57 WAITER AND CASHIER Date : 12/26/2013 CDT 01/30/2014 CDT 03/06/2014 [...] : MELI Pradhan RN - 07/07/2016 9:57 WAITER AND CASHIER MELI CAMPO RN - 07/07/2016 9:57 MELI ROJO RN - 07/07/2016 9:57 WAITER AND CASHIER MELI CAMPO RN - 07/07/2016 9:57 WAITER AND CASHIER Date : 03/20/2014 CDT 03/27/2014 CDT 04/10/2014 [...] lackey LM /pharmacy MELI CAMPO RN - 07/07/2016 9:57 WAITER AND CASHIER MELI CAMPO RN - 07/07/2016 9:57 WAITER AND CASHIER MELI CAMPO RN - 07/07/2016 9:57 WAITER AND CASHIER MELI CAMPO RN - 07/07/2016 9:57 WAITER AND CASHIER Date : 04/17/2014 CDT 04/24/2014 CDT 05/01/2014 WAITER AND CASHIER 05/15/2014 WAITER AND CASHIER Location of INR sample : Lab Lab [...] will trynoted dose called to mom Fabiola [phone] called to Fabiola/no changes Called to mother/Fabiola, not awareof any changes Recommend Recheck : One week One week Two weeks Two weeks Plan completed by : MELI LEON RN - 07/07/2016 9:57 WAITER AND CASHIER MELI CAMPO RN - 07/07/2016 9:57 WAITER AND CASHIER MELI CAMPO RN - 07/07/2016 9:57 WAITER AND CASHIER MELI CAMPO RN - 07/07/2016 9:57 WAITER AND CASHIER Date : 06/03/2014 WAITER AND CASHIER 06/05/2014 WAITER AND CASHIER 06/10/2014 WAITER AND CASHIER 06/11/2014 WAITER AND CASHIER Location of INR sample : Lab Type [...] Called motherFabiola. Hue will be staying in [place] 2wks post-surgery & have INR drawn there. [...] lovenox tomorrow AM as ordered. INR in [place] for next several weeks as pt will be recovering there. Recommend Recheck : Other: depending on Dr. Henriquez's preop. Other: 06/18 Other: 06/13/14 Plan completed by : MELI ROSADO RN - 07/07/2016 9:57 WAITER AND CASHIER MELI CAMPO RN - 07/07/2016 9:57 WAITER AND CASHIER MELI CAMPO RN - 07/07/2016 9:57 WAITER AND CASHIER MELI CAMPO RN - 07/07/2016 9:57 WAITER AND CASHIER Date : 06/14/2014 WAITER AND CASHIER 06/14/2014 WAITER AND CASHIER 06/16/2014 WAITER AND CASHIER 06/23/2014 WAITER AND CASHIER Location of INR sample : Clinic Lab Lab Type of Sample : Venous Venous INR Result : 1.3 on 06/13 2.4 faxed from lab 2.0 Warfarin Dose : (pt took 2.5mg 06/13) 5mg Sat and 5mg Sun (06/14 and 06/15) 5mg Mon and 2.5mg all other days 5mg Mon and 2.5mg all other days Total Weekly Warfarin Dose : 20 20 Comment : [place] lab called with INR result from 06/13, reported they left a message with Dr. Henriquez and hadn't heard back, spoke with mother, Fabiola, and gave doses, continue Lovenox and repeat INR 06/16, message left with INR clinic in [place] to contact [facility] Please contact [facility] on 06/16 for result and may call Fabiola at [phone] with instructions call to Fabiola/will stop Lovenox injections and take noted dose/pt has an appt here in [place] 06/23 so will do lab appt here that day Called to Fabiola/ Hue will be back at [facility] by next draw. will have done on . no changes to meds/diet. Recommend Recheck : Two days One week Two weeks Plan completed by : MELI Vazquez LM RN - 07/07/2016 9:57 WAITER AND CASHIER MELI CAMPO RN - 07/07/2016 9:57 WAITER AND CASHIER MELI CAMPO RN - 07/07/2016 9:57 WAITER AND CASHIER MELI CAMPO RN - 07/07/2016 9:57 WAITER AND CASHIER Date : 07/10/2014 WAITER AND CASHIER 07/17/2014 WAITER AND CASHIER 07/31/2014 WAITER AND CASHIER 09/11/2014 CDT Location of INR sample : [...] Two weeks Plan completed by : darya BocyeK ly MELI DEUTSCH RN - 07/07/2016 9:57 WAITER AND CASHIER MELI CAMPO RN - 07/07/2016 9:57 WAITER AND CASHIER MELI CAMPO RN - 07/07/2016 9:57 WAITER AND CASHIER MELI CAMPO RN - 07/07/2016 9:57 WAITER AND CASHIER Date : 09/12/2014 CDT 09/25/2014 CDT 10/02/2014 [...] completed by : MARIA GUADALUPE lackey JM MELI Carroll RN - 07/07/2016 9:57 WAITER AND CASHIER MELI CAMPO RN - 07/07/2016 9:57 WAITER AND CASHIER MELI CAMPO RN - 07/07/2016 9:57 WAITER AND CASHIER MELI CAMPO RN - 07/07/2016 9:57 WAITER AND CASHIER Date : 10/23/2014 CDT 11/13/2014 CDT 11/20/2014 [...] week One week Plan completed by : EMLI Bailey RN - 07/07/2016 9:57 WAITER AND CASHIER MELI CAMPO RN - 07/07/2016 9:57 WAITER AND CASHIER MELI CAMPO RN - 07/07/2016 9:57 WAITER AND CASHIER MELI CAMPO RN - 07/07/2016 9:57 WAITER AND CASHIER Date : 12/04/2014 CDT 12/18/2014 CDT 01/15/2015 [...] : MELI Shirley RN - 07/07/2016 9:57 WAITER AND CASHIER MELI CAMPO RN - 07/07/2016 9:57 WAITER AND CASHIER MELI CAMPO RN - 07/07/2016 9:57 WAITER AND CASHIER MELI CAMPO RN - 07/07/2016 9:57 WAITER AND CASHIER Date : 02/05/2015 CDT 02/26/2015 CDT 03/05/2015 [...] : MELI CAMPOS RN - 07/07/2016 9:57 WAITER AND CASHIER MELI CAMPO RN - 07/07/2016 9:57 WAITER AND CASHIER MELI CAMPO RN - 07/07/2016 9:57 WAITER AND CASHIER MELI CAMPO RN - 07/07/2016 9:57 WAITER AND CASHIER Date : 04/09/2015 CDT 05/07/2015 WAITER AND CASHIER 06/04/2015 WAITER AND CASHIER 07/02/2015 WAITER AND CASHIER Location of INR sample : Lab Lab [...] completed by : MELI Keating RN - 07/07/2016 9:57 WAITER AND CASHIER MELI CAMPO RN - 07/07/2016 9:57 WAITER AND CASHIER MELI CAMPO RN - 07/07/2016 9:57 WAITER AND CASHIER MELI CAMPO RN - 07/07/2016 9:57 WAITER AND CASHIER Date : 08/06/2015 WAITER AND CASHIER 09/17/2015 CDT 10/29/2015 CDT 11/12/2015 CDT Location [...] : MELI Edwards RN - 07/07/2016 9:57 WAITER AND CASHIER MELI CAMPO RN - 07/07/2016 9:57 [facility] MELI CAMPO RN - 07/07/2016 9:57 WAITER AND CASHIER MELI CAMPO RN - 07/07/2016 9:57 WAITER AND CASHIER Date : 11/19/2015 CDT 12/03/2015 CDT 12/31/2015 [...] : MELI Pickett RN - 07/07/2016 9:57 WAITER AND CASHIER MELI CAMPO RN - 07/07/2016 9:57 WAITER AND CASHIER MELI CAMPO RN - 07/07/2016 9:57 WAITER AND CASHIER MELI CAMPO RN - 07/07/2016 9:57 WAITER AND CASHIER Date : 02/19/2016 CDT 02/20/2016 CDT 02/21/2016 [...] Pharm.DMichael Brizuela, Pharm.DMichael ASTUDILLO, PharmD Rea LeonD. MELI CAMPO RN - 07/07/2016 9:57 WAITER AND CASHIER MELI CAMPO RN - 07/07/2016 9:57 WAITER AND CASHIER MELI CAMPO RN - 07/07/2016 9:57 WAITER AND CASHIER MELI CAMPO RN - 07/07/2016 9:57 WAITER AND CASHIER Date : 02/23/2016 CDT 02/24/2016 CDT 02/25/2016 CDT 02/26/2016 CDT Location of INR sample : [facility] Type of Sample : Venous Venous [...] Eliseo Quezada, PharmValentina. Eliseo Quezada, PharmRohit Brizuela, Pharm.D. Eliseo Quezada, ReaD. MELI CAMPO RN - 07/07/2016 9:57 WAITER AND CASHIER MELI CAMPO RN - 07/07/2016 9:57 WAITER AND CASHIER MELI CAMPO RN - 07/07/2016 9:57 WAITER AND CASHIER MELI CAMPO RN - 07/07/2016 9:57 WAITER AND CASHIER Date : 02/27/2016 CDT 03/01/2016 CDT 03/04/2016 CDT 03/07/2016 CDT Location of INR sample [facility] Type of Sample : Venous Capillary/POC Venous Capillary/POC INR Result : 2.07 2.5 2.2 2.4 Warfarin Dose : 2 mg daily 2mg daily 2.5mg 03/04-03/06 2.5mg Mon,Mon,Mon Total Weekly Warfarin Dose : 14 15.5 Comment : Pt being discharged on Bactrim. 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 Pt mother states plan to return to [facility] on 03/06. next f/u will be in [facility]. 2mg TuWTh Rev'd with Jelly/Pharmacist,called to mom/Fabiola [...] Plan completed by : MELI Bone RN, RN RN - 07/07/2016 9:57 WAITER AND CASHIER MELI CAMPO RN - 07/07/2016 9:57 WAITER AND CASHIER MELI CAMPO RN - 07/07/2016 9:57 WAITER AND CASHIER MELI CAMPO RN - 07/07/2016 9:57 WAITER AND CASHIER Date : 03/11/2016 CDT 03/16/2016 CDT 03/31/2016 [...] to do next INR at [facility] on ./no changes called to Fabiola/no changes called to Fabiola/Mom,no changes/missed doses Recommend Recheck : Other: 03/16/16 Other: 03/31/16(2 weeks) One month Two weeks Plan completed by : JENIFER lackey NB MELI CAMPO RN - 07/07/2016 9:57 WAITER AND CASHIER MELI CAMPO RN - 07/07/2016 9:57 WAITER AND CASHIER MELI CAMPO RN - 07/07/2016 9:57 WAITER AND CASHIER MELI CAMPO RN - 07/07/2016 9:57 WAITER AND CASHIER Date : 05/11/2016 WAITER AND CASHIER 05/12/2016 WAITER AND CASHIER 05/17/2016 WAITER AND CASHIER 05/24/2016 WAITER AND CASHIER Location of INR sample : Other: Drawn in [place] Other: [place] Other: [place] Type of Sample : INR Result : 1.6 2.4 1.8 Warfarin Dose : 2.5mg daily 2.5mg daily 5mg 05/24 then 2.5mg daily Total Weekly Warfarin Dose : 17.5 Comment : Per Mom/Fabiola, pt disch from [facility] today, fell & fx left humerus [...] : MELI ODEN RN - 07/07/2016 9:57 WAITER AND CASHIER MELI CAMPO RN - 07/07/2016 9:57 WAITER AND CASHIER MELI CAMPO RN - 07/07/2016 9:57 WAITER AND CASHIER MELI CAMPO RN - 07/07/2016 9:57 WAITER AND CASHIER Date : 06/01/2016 WAITER AND CASHIER 06/06/2016 WAITER AND CASHIER 06/10/2016 WAITER AND CASHIER 06/13/2016 WAITER AND CASHIER Location of INR sample : Other: [place] Other: [facility] Other: [facility] Type of Sample : INR Result : 1.6 1.4 1.6 2.2 Warfarin Dose : 5mg 06/02, 2.5mg 06/03, 06/04, 06/05 5mg 06/06 & 06/07,2.5mg 06/08 & 06/09 5mg06/10, 06/11, 2.5mg 18 2.5mg Mon,Wed,fri and 5mg [...] : MELI Wiggins RN - 07/07/2016 9:57 WAITER AND CASHIER MELI CAMPO RN - 07/07/2016 9:57 WAITER AND CASHIER MELI CAMPO RN - 07/07/2016 9:57 WAITER AND CASHIER MELI CAMPO RN - 07/07/2016 9:57 WAITER AND CASHIER Date : 06/17/2016 WAITER AND CASHIER 06/24/2016 WAITER AND CASHIER 07/07/2016 WAITER AND CASHIER Location of INR sample : Other: [facility] Other: [facility] Type of Sample : Venous [...] : MELI JADE RN - 07/07/2016 9:57 WAITER AND CASHIER MELI CAMPO RN - 07/07/2016 9:57 WAITER AND CASHIER MELI CAMPO RN - 07/07/2016 9:57 WAITER AND CASHIER Anticoagulation Assessment / History Visit : Phone management Plan of Care Date : 01/29/2008 CDT Primary Physician Anticoagulation : TASHA HENRIQUEZ MD 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 - 07/07/2016 9:17 AM CST Results Notification From: MELI CAMPO RN ( Anticoagulation Nurse) To: Anticoagulation Nurse; Sent: 07/07/2016 09:17:50 WAITER AND CASHIER Show up: 07/07/2016 09:18:00 WAITER AND CASHIER Subject: Results Notification Results: Date Result Name Value Ref Range 07/07/2016 08:03 PT 27.7 second(s) (8.8 - 11.9) 07/07/2016 08:03 INR 2.5 (0.9 - 1.2) Source: [facility] [employer] Me Document Id: [id number] documented in this encounter Plan of Treatment Upcoming Encounters Date Type Specialty Care Team Description 06/22/2022 Appointment Laboratory Medicine Rusty Vee M.D. [address] [place] [phone] 06/22/2022 Diagnostic Pulmonary Medicine Rusty Vee M.D. [address] [place] [phone] 06/22/2022 Diagnostic Pulmonary Medicine Rusty Vee M.D. [address] [place] [phone] 06/22/2022 Appointment Radiology Rusty Vee M.D. [address] [place] [phone] 06/23/2022 Clinical Communication Admitting/Central Scheduling 06/28/2022 Appointment Pulmonary Medicine Rusty Vee M.D. [address] [place] [phone] 06/28/2022 Appointment Pulmonary Medicine Rusty Vee M.D. [address] [place] [phone] documented as of this encounter Procedures Procedure Name Priority Date/Time Associated Comments Diagnosis PROTHROMBIN TIME Routine 07/07/2016 8:03 AM Resul ts for this (PT), P WAITER AND CASHIER procedure are i n the results section. documented in this encounter Results (ABNORMAL) PT (Prothrombin Time) with INR (07/07/2016 8:03 AM WAITER AND CASHIER) [facility] Method Time Signature Prothrombin 27.7 (H) [...] / Volume Laterality Blood 07/07/2016 8:03 AM WAITER AND CASHIER Tasha Henriquez M.D. LAB BLOOD ADD-ON Performing Organization Address City/State/ZIP Code Phon e Number POWERCHART documented in this encounter Visit Diagnoses Not on filedocumented in this encounter
--- OUTSIDE RECORDS SUMMARY | 2022-05-25 21:04 | XMS_ITS | Encounter Summary ---
:1975 Author Organization [facility] Address [address] [place] [id number] Care Team Providers Name Role Phone Unavailable Primary Care Provider Unavailable Encounter Details Date Type Department Care Team Description 08/31/2016 Hospital Encounter HX [facility] Marsha Henriquez M.D. [address] [place], [place] [address] (Wo rk) Social History [...] at Date Recorded Female 05/03/2022 7:07 PM IT CORPORATE RECRUITER documented as of this encounter Last Filed Vital Signs Vital Sign Reading Time Taken Comments Blood Pressure - - Pulse - - Temperature - - Respiratory Rate - - Oxygen Saturation - - Inhaled Oxygen Concentration - - Weight - - Height 146 cm (4' 9.48) 08/31/2016 7:25 AM IT CORPORATE RECRUITER Body Mass Index - - documented in [...] encounter Miscellaneous Notes Miscellaneous - Wali Mcclellan, R.N. - 08/31/2016 9:09 AM CST Anticoagulation Patient Intake Anticoagulation Patient Intake Entered On: 08/31/2016 9:18 IT CORPORATE RECRUITER Performed On: 08/31/2016 9:09 IT CORPORATE RECRUITER by WALI MCCLELLAN RN Plan INR goal range : 2.0 - 3.0 Duration of Therapy : Lifelong Tablet Size : 2 mg, 5 mg WALI MCCLELLAN RN - 08/31/2016 9:09 IT CORPORATE RECRUITER Anticoagulation Management Plan Grid Date : 09/05/2013 [...] completed by : WALI Tracy RN - 08/31/2016 9:09 WALI REYNOLDS RN - 08/31/2016 9:09 WALI REYNOLDS RN - 08/31/2016 9:09 WALI REYNOLDS RN - 08/31/2016 9:09 IT CORPORATE RECRUITER Date : 12/26/2013 CDT 01/30/2014 CDT 03/06/2014 [...] : WALI Davidson RN - 08/31/2016 9:09 WALI REYNOLDS RN - 08/31/2016 9:09 WALI REYNOLDS RN - 08/31/2016 9:09 WALI REYNOLDS RN - 08/31/2016 9:09 IT CORPORATE RECRUITER Date : 03/20/2014 CDT 03/27/2014 CDT 04/10/2014 [...] lackey LM /pharmacy WALI MCCLELLAN RN - 08/31/2016 9:09 IT CORPORATE RECRUITER WALI MCCLELLAN RN - 08/31/2016 9:09 IT CORPORATE RECRUITER WALI MCCLELLAN RN - 08/31/2016 9:09 IT CORPORATE RECRUITER WALI MCCLELLAN RN - 08/31/2016 9:09 IT CORPORATE RECRUITER Date : 04/17/2014 CDT 04/24/2014 CDT 05/01/2014 IT CORPORATE RECRUITER 05/15/2014 IT CORPORATE RECRUITER Location of INR sample : Lab Lab [...] will trynoted dose called to mom Fabiola [phone] called to Fabiola/no changes Called to mother/Fabiola, not awareof any changes Recommend Recheck : One week One week Two weeks Two weeks Plan completed by : WALI CHOI RN - 08/31/2016 9:09 IT CORPORATE RECRUITER WALI MCCLELLAN RN - 08/31/2016 9:09 IT CORPORATE RECRUITER WALI MCCLELLAN RN - 08/31/2016 9:09 IT CORPORATE RECRUITER WALI MCCLELLAN RN - 08/31/2016 9:09 IT CORPORATE RECRUITER Date : 06/03/2014 IT CORPORATE RECRUITER 06/05/2014 IT CORPORATE RECRUITER 06/10/2014 IT CORPORATE RECRUITER 06/11/2014 IT CORPORATE RECRUITER Location of INR sample : Lab Type [...] Called motherFabiola. Hue will be staying in [place] 2wks post-surgery & have INR drawn there. [...] lovenox tomorrow AM as ordered. INR in [place] for next several weeks as pt will be recovering there. Recommend Recheck : Other: depending on Dr. Henriquez's preop. Other: 06/18 Other: 06/13/14 Plan completed by : WALI TYLER RN - 08/31/2016 9:09 IT CORPORATE RECRUITER WALI MCCLELLAN RN - 08/31/2016 9:09 WALI REYNOLDS RN - 08/31/2016 9:09 WALI REYNOLDS RN - 08/31/2016 9:09 IT CORPORATE RECRUITER Date : 06/14/2014 IT CORPORATE RECRUITER 06/14/2014 IT CORPORATE RECRUITER 06/16/2014 IT CORPORATE RECRUITER 06/23/2014 IT CORPORATE RECRUITER Location of INR sample : Clinic Lab Lab Type of Sample : Venous Venous INR Result : 1.3 on 06/13 2.4 faxed from lab 2.0 Warfarin Dose : (pt took 2.5mg 06/13) 5mg Sat and 5mg Sun (06/14 and 06/15) 5mg Mon and 2.5mg all other days 5mg Mon and 2.5mg all other days Total Weekly Warfarin Dose : 20 20 Comment : [place] lab called with INR result from 06/13, reported they left a message with Dr. Henriquez and hadn't heard back, spoke with mother, Fabiola, and gave doses, continue Lovenox and repeat INR 06/16, message left with INR clinic in [place] to contact [facility] Please contact [place] lab on 06/16 for result and may call Fabiola at [phone] with instructions call to Fabiola/will stop Lovenox injections and take noted dose/pt has an appt here in [place] 06/23 so will do lab appt here that day Called to Fabiola/ Hue will be back at [facility] by next draw. will have done on . no changes to meds/diet. Recommend Recheck : Two days One week Two weeks Plan completed by : WALI Steven LM RN - 08/31/2016 9:09 IT CORPORATE RECRUITER WALI MCCLELLAN RN - 08/31/2016 9:09 IT CORPORATE RECRUITER WALI MCCLELLAN RN - 08/31/2016 9:09 IT CORPORATE RECRUITER WALI MCCLELLAN RN - 08/31/2016 9:09 IT CORPORATE RECRUITER Date : 07/10/2014 IT CORPORATE RECRUITER 07/17/2014 IT CORPORATE RECRUITER 07/31/2014 IT CORPORATE RECRUITER 09/11/2014 CDT Location of INR sample : [...] Plan completed by : darya BoyceK ly WALI ROLDAN RN - 08/31/2016 9:09 IT CORPORATE RECRUITER WALI MCCLELLAN RN - 08/31/2016 9:09 IT CORPORATE RECRUITER WALI MCCLELLAN RN - 08/31/2016 9:09 WALI REYNOLDS RN - 08/31/2016 9:09 IT CORPORATE RECRUITER Date : 09/12/2014 CDT 09/25/2014 CDT 10/02/2014 [...] completed by : MARIA GUADALUPE lackey JM WALI Ervin RN - 08/31/2016 9:09 IT CORPORATE RECRUITER WALI MCCLELLAN RN - 08/31/2016 9:09 IT CORPORATE RECRUITER WALI MCCLELLAN RN - 08/31/2016 9:09 IT CORPORATE RECRUITER WALI MCCLELLAN RN - 08/31/2016 9:09 IT CORPORATE RECRUITER Date : 10/23/2014 CDT 11/13/2014 CDT 11/20/2014 [...] : WALI Skinner RN - 08/31/2016 9:09 IT CORPORATE RECRUITER WALI MCCLELLAN RN - 08/31/2016 9:09 IT CORPORATE RECRUITER WALI MCCLELLAN RN - 08/31/2016 9:09 IT CORPORATE RECRUITER WALI MCCLELLAN RN - 08/31/2016 9:09 IT CORPORATE RECRUITER Date : 12/04/2014 CDT 12/18/2014 CDT 01/15/2015 [...] : WALI Cabrera RN - 08/31/2016 9:09 IT CORPORATE RECRUITER WALI MCCLELLAN RN - 08/31/2016 9:09 IT CORPORATE RECRUITER WALI MCCLELLAN RN - 08/31/2016 9:09 IT CORPORATE RECRUITER WALI MCCLELLAN RN - 08/31/2016 9:09 IT CORPORATE RECRUITER Date : 02/05/2015 CDT 02/26/2015 CDT 03/05/2015 [...] : WALI LAWRENCE RN - 08/31/2016 9:09 IT CORPORATE RECRUITER WALI MCCLELLAN RN - 08/31/2016 9:09 WALI REYNOLDS RN - 08/31/2016 9:09 AWLI REYNOLDS RN - 08/31/2016 9:09 IT CORPORATE RECRUITER Date : 04/09/2015 CDT 05/07/2015 IT CORPORATE RECRUITER 06/04/2015 IT CORPORATE RECRUITER 07/02/2015 IT CORPORATE RECRUITER Location of INR sample : Lab Lab [...] : WALI Nelson RN - 08/31/2016 9:09 IT CORPORATE RECRUITER WALI MCCLELLAN RN - 08/31/2016 9:09 IT CORPORATE RECRUITER WALI MCCLELLAN RN - 08/31/2016 9:09 WALI REYNOLDS RN - 08/31/2016 9:09 IT CORPORATE RECRUITER Date : 08/06/2015 IT CORPORATE RECRUITER 09/17/2015 CDT 10/29/2015 CDT 11/12/2015 CDT Location [...] : WALI Toussaint RN - 08/31/2016 9:09 WALI REYNOLDS RN - 08/31/2016 9:09 WALI REYNOLDS RN - 08/31/2016 9:09 WALI REYNOLDS RN - 08/31/2016 9:09 IT CORPORATE RECRUITER Date : 11/19/2015 CDT 12/03/2015 CDT 12/31/2015 [...] : WALI Will RN - 08/31/2016 9:09 IT CORPORATE RECRUITER WALI MCCLELLAN RN - 08/31/2016 9:09 IT CORPORATE RECRUITER WALI MCCLELLAN RN - 08/31/2016 9:09 IT CORPORATE RECRUITER WALI MCCLELLAN RN - 08/31/2016 9:09 IT CORPORATE RECRUITER Date : 02/19/2016 CDT 02/20/2016 CDT 02/21/2016 CDT 02/22/2016 CDT Location of INR sample : [facility] Type of Sample : Venous Venous [...] Brizuela, Pharm.DMichael ASTUDILLO, PharmD Eliseo Quezada PharmD. WALI MCCLELLAN RN - 08/31/2016 9:09 IT CORPORATE RECRUITER WALI MCCLELLAN RN - 08/31/2016 9:09 [facility] WALI MCCLELLAN RN - 08/31/2016 9:09 [facility] WALI MCCLELLAN RN - 08/31/2016 9:09 IT CORPORATE RECRUITER Date : 02/23/2016 CDT 02/24/2016 CDT 02/25/2016 CDT 02/26/2016 CDT Location of INR sample : [facility] Type of Sample : Venous Venous [...] Eliseo Quezada, Alida. Eliseo Quezada, PharmRohit Brizuela, Pharm.D. Eliseo Quezada, ReaD. WALI MCCLELLAN RN - 08/31/2016 9:09 IT CORPORATE RECRUITER WALI MCCLELLAN RN - 08/31/2016 9:09 IT CORPORATE RECRUITER WALI MCCLELLAN RN - 08/31/2016 9:09 WALI REYNOLDS RN - 08/31/2016 9:09 IT CORPORATE RECRUITER Date : 02/27/2016 CDT 03/01/2016 CDT 03/04/2016 CDT 03/07/2016 CDT [facility] Type of Sample : Venous Capillary/POC Venous Capillary/POC INR Result : 2.07 2.5 2.2 2.4 Warfarin Dose : 2 mg daily 2mg daily 2.5mg 03/04-03/06 2.5mg Mon,Mon,Mon Total Weekly Warfarin Dose : 14 15.5 Comment : Pt being discharged on Bactrim. Will [employer] rx for 2 mg tabs On bactrim 2 days left, has f/u in [place] on Monday. Pt mother states plan to return to [facility] on 03/06. next f/u will be in [facility]. 2mg TuWTh Rev'd with Jelly/Pharmacist,called to [...] Plan completed by : WALI Cartagena RN, RN RN - 08/31/2016 9:09 WALI REYNOLDS RN - 08/31/2016 9:09 IT CORPORATE RECRUITER WALI MCCLELLAN RN - 08/31/2016 9:09 WALI REYNOLDS RN - 08/31/2016 9:09 IT CORPORATE RECRUITER Date : 03/11/2016 CDT 03/16/2016 CDT 03/31/2016 [...] pt will be staying with sister in [facility] next week she will have INR drawn in again called to Fabiola/pt to do next INR at [facility] on a ./no changes called to Fabiola/no changes called to Fabiola/Mom,no changes/missed doses Recommend Recheck : Other: 03/16/16 Other: 03/31/16(2 weeks) One month Two weeks Plan completed by : WALI Segura RN - 08/31/2016 9:09 IT CORPORATE RECRUITER WALI MCCLELLAN RN - 08/31/2016 9:09 IT CORPORATE RECRUITER WALI MCCLELLAN RN - 08/31/2016 9:09 IT CORPORATE RECRUITER WALI MCCLELLAN RN - 08/31/2016 9:09 IT CORPORATE RECRUITER Date : 05/11/2016 IT CORPORATE RECRUITER 05/12/2016 IT CORPORATE RECRUITER 05/17/2016 IT CORPORATE RECRUITER 05/24/2016 IT CORPORATE RECRUITER Location of INR sample : Other: [place]: [place] Other: [place] Type of Sample : INR Result : 1.6 2.4 1.8 Warfarin Dose : 2.5mg daily 2.5mg daily 5mg 05/24 then 2.5mg daily Total Weekly Warfarin Dose : 17.5 Comment : Per Mom/Fabiola, pt disch from [facility] today, fell & fx left humerus [...] : WALI REIS RN - 08/31/2016 9:09 IT CORPORATE RECRUITER WALI MCCLELLAN RN - 08/31/2016 9:09 WALI REYNOLDS RN - 08/31/2016 9:09 WALI REYNOLDS RN - 08/31/2016 9:09 IT CORPORATE RECRUITER Date : 06/01/2016 IT CORPORATE RECRUITER 06/06/2016 IT CORPORATE RECRUITER 06/10/2016 IT CORPORATE RECRUITER 06/13/2016 IT CORPORATE RECRUITER Location of INR sample : Other: [place] Other: [facility] Other: [facility] Type of Sample : INR Result : 1.6 1.4 1.6 2.2 Warfarin Dose : 5mg 06/02, 2.5mg 06/03, 06/04, 12 5mg 06/06 & 06/07,2.5mg 06/08 & 06/09 5mg06/10, 06/11, 2.5mg 18 2.5mg Mon,Wed,fri and 5mg all other days Total Weekly Warfarin Dose : Comment : processed 06/02/had 2.5mg last night/called to Mom/Fabiola, no changes rev'd with Burke/Pharmacist,called to mom/Fabiola pt is staying with sister no changes she is aware of will be back 06/10 rev'd with Quintin/Pharmacy/called to Fabiola Hernandez rev'd with Prasad/Raminci,called to mom Recommend Recheck : Other: 06/06/2016 Other: 06/10/16 Three days Other: 06/17/16 Plan completed by : WALI Mckay RN - 08/31/2016 9:09 IT CORPORATE RECRUITER WALI MCCLELLAN RN - 08/31/2016 9:09 IT CORPORATE RECRUITER WALI MCCLELLAN RN - 08/31/2016 9:09 IT CORPORATE RECRUITER WALI MCCLELLAN RN - 08/31/2016 9:09 IT CORPORATE RECRUITER Date : 06/17/2016 IT CORPORATE RECRUITER 06/24/2016 IT CORPORATE RECRUITER 07/07/2016 IT CORPORATE RECRUITER 07/28/2016 IT CORPORATE RECRUITER Location of INR sample : Other: [facility] CF Other: [facility] Lab Lab Type of Sample [...] is having tooth pulled 08/31/[address] [facility] Oral Surgery will need INR checked that am scheduled.letter faxed to [facility] oral surgery to see what INR needs leon Recommend Recheck : One week Other: 07/07/16 Three weeks Two weeks Plan completed by : WALI GIBBS RN - 08/31/2016 9:09 WALI REYNOLDS RN - 08/31/2016 9:09 WALI REYNOLDS RN - 08/31/2016 9:09 WALI REYNOLDS RN - 08/31/2016 9:09 IT CORPORATE RECRUITER Date : 08/11/2016 IT CORPORATE RECRUITER 08/31/2016 IT CORPORATE RECRUITER Location of INR sample : Lab Lab [...] : WALI TIDWELL RN - 08/31/2016 9:09 WALI REYNOLDS RN - 08/31/2016 9:09 IT CORPORATE RECRUITER Anticoagulation Assessment / History Visit : Phone management Plan of Care Date : 01/29/2008 CDT Primary Physician Anticoagulation : TASHA HENRIQUEZ MD 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 - 08/31/2016 8:32 AM CST Results Notification Document Contains Addenda Addendum by WALI MCCLELLAN RN on August 31, 2016 09:26:20 IT CORPORATE RECRUITER Orders called to David/Fabiola. From: WALI MCCLELLAN RN ( Anticoagulation Nurse) To: Anticoagulation Nurse; Sent: 08/31/2016 08:32:47 IT CORPORATE RECRUITER Show up: 08/31/2016 08:33:00 IT CORPORATE RECRUITER Subject: Results Notification Results: Date Result Name Value Ref Range 08/31/2016 07:30 PT 27.3 second(s) (8.8 - 11.9) 08/31/2016 07:30 INR 2.5 (0.9 - 1.2) Source: [facility] [employer] Document Id: [id number] Electronically signed by [facility] Centers[facility] Subsurface Augmentee Operator [id number] at 12/06/2016 5:17 AM CDT documented in this encounter Plan of Treatment Upcoming Encounters Date Type Specialty Care Team Description 06/22/2022 Appointment Laboratory Medicine Rusty Vee M.D. [address] [place] [phone] 06/22/2022 Diagnostic Pulmonary Medicine Rusty Vee M.D. [address] [place] [phone] 06/22/2022 Diagnostic Pulmonary Medicine Rusty Vee M.D. [address] [place] [phone] 06/22/2022 Appointment Radiology Rusty Vee M.D. [address] [place] [phone] 06/23/2022 Clinical Communication Admitting/Central Scheduling 06/28/2022 Appointment Pulmonary Medicine Rusty Vee M.D. [address] [place] [phone] 06/28/2022 Appointment Pulmonary Medicine Rusty Vee M.D. [address] [place] [phone] documented as of this encounter Procedures Procedure Name Priority Date/Time Associated Comments Diagnosis PROTHROMBIN TIME Routine 08/31/2016 7:30 AM Resul ts for this (PT), P IT CORPORATE RECRUITER procedure are i n the results section. documented in this encounter Results (ABNORMAL) PT (Prothrombin Time) with INR (08/31/2016 7:30 AM IT CORPORATE RECRUITER) [facility] Method Time Signature Prothrombin 27.3 (H) [...] / Volume Laterality Blood 08/31/2016 7:30 AM IT CORPORATE RECRUITER Tasha Henriquez M.D. LAB BLOOD ADD-ON Performing Organization Address City/State/ZIP Code Phon e Number POWERCHART documented in this encounter Visit Diagnoses Not on filedocumented in this encounter
--- OUTSIDE RECORDS SUMMARY | 2022-05-25 21:04 | XMS_ITS | Encounter Summary ---
:1975 Author Organization [facility] Address [address] [place] [address] Care Team Providers Name Role Phone Unavailable Primary Care Provider Unavailable Encounter Details Date Type Department Care Team Description 08/11/2016 Hospital En[facility] Marsha Henriquez M.D. [address] [place], [place] [address] (Wo rk) Social History [...] or relatives? How often do you attend protestant or More than 4 times per year 05/04/2022 protestant services? Do you belong to any clubs or Yes 05/04/2022 organizations such as protestant groups, unions, fraternal or athletic groups, or [...] at Date Recorded Female 05/03/2022 7:[address] RECORDER documented as of this encounter Last Filed Vital Signs Vital Sign Reading Time Taken Comments Blood Pressure - - Pulse - - Temperature - - Respiratory Rate - - Oxygen Saturation - - Inhaled Oxygen Concentration - - Weight - - Height 146 cm (4' 9.48) 08/11/2016 5:[address] RECORDER Body Mass Index - - documented in [...] Notes Miscellaneous - Meli Campo, R.N. - 08/11/2016 10:52 AM CST Anticoagulation Patient Intake Document Has Been Updated Anticoagulation Patient Intake Entered On: 08/11/2016 10:56 COURT RECORDER Performed On: 08/11/2016 10:52 [address] RECORDER by MELI CAMPO RN Plan INR goal range : 2.0 - 3.0 Duration of Therapy : Lifelong Tablet Size : 2 mg, 5 mg MELI CAMPO RN - 08/11/2016 10:[address] RECORDER MELI CAMPO RN - 08/11/2016 10:52 [address] RECORDER Anticoagulation Management Plan Grid Date : 09/05/2013 [...] completed by : MELI Vidal RN - 08/11/2016 10:52 MELI ROJO RN - 08/11/2016 10:52 MELI ROJO - 08/11/2016 10:52 MELI ROJO RN - 08/11/2016 10:52 COURT RECORDER Date : 12/26/2013 CDT 01/30/2014 CDT 03/06/2014 [...] : MELI Pradhan RN - 08/11/2016 10:[address] RECORDER MELI CAMPO RN - 08/11/2016 10:52 MELI ROJO - 08/11/2016 10:52 MELI ROJO RN - 08/11/2016 10:52 [address] RECORDER Date : 03/20/2014 CDT 03/27/2014 CDT 04/10/2014 [...] /pharmacy MELI CAMPO RN - 08/11/2016 10:[address] RECORDER MELI CAMPO RN - 08/11/2016 10:52 [address] RECORDER MELI CAMPO - 08/11/2016 10:52 [address] RECORDER MELI CAMPO RN - 08/11/2016 10:52 [address] RECORDER Date : 04/17/2014 CDT 04/24/2014 CDT 05/01/2014 COURT RECORDER 05/15/2014 COURT RECORDER Location of INR sample : Lab Lab [...] will trynoted dose called to mom Fabiola [phone] called to Fabiola/no changes Called to mother/Fabiola, not awareof any changes Recommend Recheck : One week One week Two weeks Two weeks Plan completed by : MELI LEON RN - 08/11/2016 10:[address] RECORDER MELI CAMPO RN - 08/11/2016 10:52 [address] RECORDER MELI CAMPO - 08/11/2016 10:52 [address] RECORDER MELI CAMPO RN - 08/11/2016 10:52 COURT RECORDER Date : 06/03/2014 COURT RECORDER 06/05/2014 COURT RECORDER 06/10/2014 COURT RECORDER 06/11/2014 COURT RECORDER Location of INR sample : Lab Type [...] Called motherFabiola. Hue will be staying in [place] 2wks post-surgery & have INR drawn there. [...] lovenox tomorrow AM as ordered. INR in [place] for next several weeks as pt will be recovering there. Recommend Recheck : Other: depending on Dr. Henriquez's preop. Other: 06/18 Other: 06/13/14 Plan completed by : MELI ROSADO RN - 08/11/2016 10:52 [address] RECORDER MELI CAMPO RN - 08/11/2016 10:52 [address] RECORDER MELI CAMPO - 08/11/2016 10:52 MELI ROJO RN - 08/11/2016 10:52 [address] RECORDER Date : 06/14/2014 COURT RECORDER 06/14/2014 COURT RECORDER 06/16/2014 COURT RECORDER 06/23/2014 COURT RECORDER Location of INR sample : Clinic Lab Lab Type of Sample : Venous Venous INR Result : 1.3 on 06/13 2.4 faxed from lab 2.0 Warfarin Dose : (pt took 2.5mg 06/13) 5mg Sat and 5mg Sun (06/14 and 06/15) 5mg Mon and 2.5mg all other days 5mg Mon and 2.5mg all other days Total Weekly Warfarin Dose : 20 20 Comment : [place] lab called with INR result from 06/13, reported they left a message with Dr. Henriquez and hadn't heard back, spoke with mother, Fabiola, and gave doses, continue Lovenox and repeat INR 06/16, message left with INR clinic in [place] to contact [facility] Please contact [place] lab on 06/16 for result and may call Fabiola at [phone] with instructions call to Fabiola/will stop Lovenox injections and take noted dose/pt has an appt here in [place] 06/23 so will do lab appt here that day Called to Fabiola/ Hue will be back at [facility] by next draw. will have done on . no changes to meds/diet. Recommend Recheck : Two days One week Two weeks Plan completed by : MELI Vazquez LM RN - 08/11/2016 10:[address] RECORDER MELI CAMPO RN - 08/11/2016 10:[address] RECORDER MELI CAMPO LRN - 08/11/2016 10:52 [address] RECORDER MELI CAMPO RN - 08/11/2016 10:52 COURT RECORDER Date : 07/10/2014 COURT RECORDER 07/17/2014 COURT RECORDER 07/31/2014 COURT RECORDER 09/11/2014 CDT Location of INR sample : [...] : MELI Rubi RN - 08/11/2016 10:52 [address] RECORDER MELI CAMPO RN - 08/11/2016 10:52 MELI ROJO - 08/11/2016 10:52 MELI ROJO RN - 08/11/2016 10:52 [address] RECORDER Date : 09/12/2014 CDT 09/25/2014 CDT 10/02/2014 [...] : MELI Owen RN - 08/11/2016 10:[address] RECORDER MELI CAMPO RN - 08/11/2016 10:52 [address] RECORDER MELI CAMPO - 08/11/2016 10:52 [address] RECORDER MELI CAMPO RN - 08/11/2016 10:52 [address] RECORDER Date : 10/23/2014 CDT 11/13/2014 CDT 11/20/2014 [...] Quintin/Pharmacy and called Mom with orders Per Megan Hernandeze, no changes, has been drinking some Kiwi Juice, no bleeding/consult with Quintin/Pharmacy Called to mom /Fabiola, no changes, rev'd w/BCarlson/Pharmacy Recommend Recheck : Three weeks One week One week One week Plan completed by : MELI Bailey RN - 08/11/2016 10:[address] RECORDER MELI CAMPO RN - 08/11/2016 10:52 [address] RECORDER MELI CAMPO - 08/11/2016 10:52 [address] RECORDER MELI CAMPO RN - 08/11/2016 10:52 [address] RECORDER Date : 12/04/2014 CDT 12/18/2014 CDT 01/15/2015 [...] : MELI Shirley RN - 08/11/2016 10:[address] RECORDER MELI CAMPO RN - 08/11/2016 10:52 [address] RECORDER MELI CAMPO - 08/11/2016 10:52 [address] RECORDER MELI CAMPO RN - 08/11/2016 10:52 [address] RECORDER Date : 02/05/2015 CDT 02/26/2015 CDT 03/05/2015 [...] : MELI CAMPOS RN - 08/11/2016 10:[address] RECORDER MELI CAMPO RN - 08/11/2016 10:52 [address] RECORDER MELI CAMPO - 08/11/2016 10:52 [address] RECORDER MELI CAMPO RN - 08/11/2016 10:52 [address] RECORDER Date : 04/09/2015 CDT 05/07/2015 COURT RECORDER 06/04/2015 COURT RECORDER 07/02/2015 COURT RECORDER Location of INR sample : Lab Lab [...] : MELI Keating RN - 08/11/2016 10:[address] RECORDER MELI CAMPO RN - 08/11/2016 10:52 MELI ROJO - 08/11/2016 10:52 MELI ROJO RN - 08/11/2016 10:52 COURT RECORDER Date : 08/06/2015 COURT RECORDER 09/17/2015 CDT 10/29/2015 CDT 11/12/2015 CDT Location [...] : MELI Edwards RN - 08/11/2016 10:[address] RECORDER MELI CAMPO RN - 08/11/2016 10:52 MELI ROJO - 08/11/2016 10:52 MELI ROJO RN - 08/11/2016 10:52 [address] RECORDER Date : 11/19/2015 CDT 12/03/2015 CDT 12/31/2015 [...] : MELI Pickett RN - 08/11/2016 10:[address] RECORDER MELI CAMPO RN - 08/11/2016 10:52 [address] RECORDER MELI CAMPO - 08/11/2016 10:52 [address] RECORDER MELI CAMPO RN - 08/11/2016 10:52 [address] RECORDER Date : 02/19/2016 CDT 02/20/2016 CDT 02/21/2016 [...] Brizuela, Pharm.DMichael Brizuela, Pharm.DMichael ASTUDILLO, PharmD Eliseo Quezada, ReaD. MELI CAMPO RN - 08/11/2016 10:52 [address] RECORDER MELI CAMPO RN - 08/11/2016 10:52 [address] RECORDER MELI CAMPO - 08/11/2016 10:52 [address] RECORDER MELI CAMPO RN - 08/11/2016 10:52 [address] RECORDER Date : 02/23/2016 CDT 02/24/2016 CDT 02/25/2016 CDT 02/26/2016 CDT Location of INR sample : [place] [facility] Type of Sample : Venous Venous Venous [...] Eliseo Quezada, PharmD. MELI CAMPO RN - 08/11/2016 10:[address] RECORDER MELI CAMPO RN - 08/11/2016 10:[address] RECORDER MELI CAMPO - 08/11/2016 10:[address] RECORDER MELI CAMPO RN - 08/11/2016 10:52 [address] RECORDER Date : 02/27/2016 CDT 03/01/2016 CDT 03/04/2016 CDT 03/07/2016 CDT Location of INR sample : [facility] Type of Sample : Venous Capillary/POC Venous Capillary/POC INR Result : 2.07 2.5 2.2 2.4 Warfarin Dose : 2 mg daily 2mg daily 2.5mg 03/04-03/06 2.5mg Mon,Mon,Mon Total Weekly Warfarin Dose : 14 15.5 Comment : Pt being discharged on Bactrim. 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 Pt mother states plan to return to [facility] on 03/06. next f[place] in [place]. 2mg TuWTh Rev'd with Jelly/Pharmacist,called to mom/Fabiola [...] : MELI Bone RN, RN RN - 08/11/2016 10:[address] RECORDER MELI CAMPO RN - 08/11/2016 10:52 [address] RECORDER MELI CAMPO - 08/11/2016 10:52 [address] RECORDER MELI CAMPO RN - 08/11/2016 10:52 [address] RECORDER Date : 03/11/2016 CDT 03/16/2016 CDT 03/31/2016 [...] pt will be staying with sister in [facility] next week she will have INR drawn in again called to Fabiola/pt to do next INR at on ./no changes called to Fabiola/no changes called to Fabiola/Mom,no changes/missed doses Recommend Recheck : Other: 03/16/16 Other: 03/31/16(2 weeks) One month Two weeks Plan completed by : MELI Lorenzana RN - 08/11/2016 10:52 [address] RECORDER MELI CAMPO RN - 08/11/2016 10:52 [address] RECORDER MELI CAMPO - 08/11/2016 10:52 [address] RECORDER MELI CAMPO RN - 08/11/2016 10:52 [address] RECORDER Date : 05/11/2016 COURT RECORDER 05/12/2016 COURT RECORDER 05/17/2016 COURT RECORDER 05/24/2016 COURT RECORDER Location of INR sample : Other: Drawn [place] Other: [place] Other: [place] Type of Sample : INR Result : 1.6 2.4 1.8 Warfarin Dose : 2.5mg daily 2.5mg daily 5mg 05/24 then 2.5mg daily Total Weekly Warfarin Dose : 17.5 Comment : Per Mom/Fabiola, pt disch from [facility] today, fell & fx left [...] : MELI ODEN RN - 08/11/2016 10:52 [address] RECORDER MELI CAMPO RN - 08/11/2016 10:52 MELI ROJO - 08/11/2016 10:52 [address] RECORDER MELI CAMPO RN - 08/11/2016 10:52 COURT RECORDER Date : 06/01/2016 COURT RECORDER 06/06/2016 COURT RECORDER 06/10/2016 COURT RECORDER 06/13/2016 COURT RECORDER Location of INR sample : Other: [place] Other: [facility] Other: [facility] Type of Sample : INR Result : 1.6 1.4 1.6 2.2 Warfarin Dose : 5mg 8, 2.5mg 12/, 12, 12/ 5mg 12/12 & 12/13,2.5mg 12/14 & 12/15 5mg12/16, 06/11, 2.5mg 1218 2.5mg Mon,Wed,fri and 5mg all other days Total Weekly Warfarin Dose : Comment : processed 06/02/had 2.5mg last night/called to Mom/Fabiola, no changes rev'd with Burke/Pharmacist,called to mom/Fabiola pt is staying with sister no changes she is aware of will be back 06/10 rev'd with Quintin/Pharmacy/called to Fabiola Hernandez rev'd with Prasad/Benitoramcist,called to mom Recommend Recheck : Other: 06/06/2016 Other: 06/10/16 Three days Other: 06/17/16 Plan completed by : MELI Wiggins RN - 08/11/2016 10:[address] RECORDER MELI CAMPO RN - 08/11/2016 10:52 [address] RECORDER MELI CAMPO - 08/11/2016 10:52 [address] RECORDER MELI CAMPO RN - 08/11/2016 10:52 COURT RECORDER Date : 06/17/2016 COURT RECORDER 06/24/2016 COURT RECORDER 07/07/2016 COURT RECORDER 07/28/2016 COURT RECORDER Location of INR sample : Other: [facility] [...] is having tooth pulled 08/31/[address] [facility] Oral Surgery will need INR checked that am scheduled.letter faxed to [facility] oral surgery to see what INR needs leon Recommend Recheck : One week Other: 07/07/16 Three weeks Two weeks Plan completed by : MELI BUCKNER RN - 08/11/2016 10:[address] RECORDER MELI CAMPO RN - 08/11/2016 10:[address] RECORDER MELI CAMPO LRClemente - 08/11/2016 10:[address] RECORDER MELI CAMPO RN - 08/11/2016 10:52 [address] RECORDER Date : 08/11/2016 [address] RECORDER Location of INR sample : Lab Type [...] lab MELI CAMPO RN - 08/11/2016 10:57 [address] RECORDER Recommend Recheck : Other: 08/31/16 Plan completed by : MELI WINTER RN - 08/11/2016 10:[address] RECORDER Anticoagulation Assessment / History Visit : Phone management Plan of Care Date : 01/29/2008 CDT Primary Physician Anticoagulation : TASHA HENRIQUEZ MD 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 - 08/11/2016 10:25 AM CST Results Notification From: MELI CAMPO RN ( Anticoagulation Nurse) To: Anticoagulation Nurse; Sent: 08/11/2016 10:25:[address] RECORDER Show up: 08/11/2016 10:26:00 [address] RECORDER Subject: Results Notification Results: Date Result Name Value Ref Range 08/11/2016 08:00 PT 30.9 second(s) (8.8 - 11.9) 08/11/2016 08:00 INR 2.8 (0.9 - 1.2) Source: [facility] [employer] Document Id: [id number] Electronically signed by Lay [facility] Centersylvia Helper Teacher [id number] at 12/06/2016 12:43 AM CDT documented in this encounter Plan of Treatment Upcoming Encounters Date Type Specialty Care Team Description 06/22/2022 Appointment Laboratory Medicine Rusty Vee M.D. [address] [place] [phone] 06/22/2022 Diagnostic Pulmonary Medicine Rusty Vee M.D. [address] [place] [phone] 06/22/2022 Diagnostic Pulmonary Medicine Rusty Vee M.D. [address] [place] [phone] 06/22/2022 Appointment Radiology Rusty Vee M.D. [address] [place] [address] [phone] 06/23/2022 Clinical Communication Admitting/Central Scheduling 06/28/2022 Appointment Pulmonary Medicine Rusty Vee M.D. [address] [place] [phone] 06/28/2022 Appointment Pulmonary Medicine Rusty Vee M.D. [address] [place] [phone] documented as of this encounter Procedures Procedure Name Priority Date/Time Associated Comments Diagnosis PROTHROMBIN TIME Routine 08/11/2016 8:00 AM Resul ts for this (PT), P COURT RECORDER procedure are i n the results section. documented in this encounter Results (ABNORMAL) PT (Prothrombin Time) with INR (08/11/2016 8:[address] RECORDER) [facility] gist Method Time Signature Prothrombin 30.9 (H) 8.8 [...] / Volume Laterality Blood 08/11/2016 8:[address] RECORDER Tasha Henriquez M.D. LAB BLOOD ADD-ON Performing Organization Address City/State/ZIP Code Phon e Number POWERCHART documented in this encounter Visit Diagnoses Not on filedocumented in this encounter
--- OUTSIDE RECORDS SUMMARY | 2022-05-25 21:04 | XMS_ITS | Encounter Summary ---
:1975 Author Organization [facility] Address [address] [place] [address] Care Team Providers Name Role Phone Unavailable Primary Care Provider Unavailable Encounter Details Date Type Department Care Team Description 07/01/2016 Hospital Encounter HX [facility] Marie Patel M.D. 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 [address] [place] [phone] 06/22/2022 Diagnostic Pulmonary Medicine Rusty Vee M.D. [address] [place] [phone] 06/22/2022 Diagnostic Pulmonary Medicine Rusty Vee M.D. [address] [place] [phone] 06/22/2022 Appointment Radiology Rusty Vee M.D. [address] [place] [phone] 06/23/2022 Clinical Communication Admitting/Central Scheduling 06/28/2022 Appointment Pulmonary Medicine Rusty Vee M.D. [address] [place] [phone] 06/28/2022 Appointment Pulmonary Medicine Rusty Vee M.D. [address] [place] [phone] documented as of this encounter Visit Diagnoses Not on filedocumented in this encounter
--- OUTSIDE RECORDS SUMMARY | 2022-05-25 21:04 | XMS_ITS | Encounter Summary ---
:1975 Author Organization [facility] Address [address] [place] [address] Care Team Providers Name Role Phone Unavailable Primary Care Provider Unavailable Encounter Details Date Type Department Care Team Description 11/09/2016 Hospital Encounter HX [facility] Marsha Henriquez M.D. 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 - 11/09/2016 3:22 PM CDT [id number] Patient is here with her mother requesting [...] but would be better to go to [facility] where I believe Jyoti has special expertise as well but they are fit at [facility] to my understanding. We also discussed occupational therapy would probably be the best option. They are very busy with some stress lately and that she had a fracture and is going to [place] and her father has prostate cancer but [...] HENRIQUEZ MD On: 11/14/2016 07:36 AM Source: [facility] MHSDOLBEYNONRADSYS Document Id: [id number] documented in this encounter Miscellaneous Notes Miscellaneous [...] 1 Substitutions Allowed Route To Pharmacy - [facility] [address] Signed by TASHA HENRIQUEZ MD 01/18/2017 07:21:35 From: MELI CAMPO RN ( Anticoagulation Nurse) To: TASHA HENRIQUEZ MD; Sent: 01/17/2017 16:50:18 CDT Subject: Med Management On hold pending signature Order:warfarin (warfarin 5 mg oral tablet) See Instructions 5mg Sun/Tues/Thurs and 2.5mg all other days or as directed by INR Clinic. 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 Please call [phone] to schedule services that are past due or that may shortly become due (thank you if you have already done so). We will follow up in three to six months should you have more services to schedule at that time. If you have already received any of the listed past due or upcoming services outside of [facility], please call [phone] to add them to your medical record. You may want to consider contacting your health insurance company to make sure these services are covered and find out if there will be any [id number] expense. If you have any questions about the services listed above, or if you are no longer receiving care from [facility], please contact us at [phone]. Thank you for partnering to provide you with the best care possible. Thank you for choosing us, Tasha Henriquez M.D. and the [facility], for your health care needs! Sincerely, OLIVIA ISRAEL Electronic Signature Electronically Signed By: OLIVIA ISRAEL On: December 12, 2016 This document has images extracted. Source: [facility] POWERCHART Document Id: [id number] Electronically signed by Conversion, [facility] Book Coverer [id number] at 12/28/2016 11:14 AM CDT Miscellaneous - Tasha Henriquez M.D. - 11/09/2016 5:34 PM CDT Ambulatory Patient Summary [facility] [address] EFRAÍN Barraza [phone] Visit Information Name: DORITA SHEFFIELD [facility] Number: [id number] Current Date: 11/09/2016 17:34:29 Physicians [...] Appointments Date Time Location Provider 11/24/2016 08:15 [facility] Lab Offsite Attention: Contact your local Clinic [...] you dont have one. Go to [email or web address] and click on Create Your Account. Then, follow the directions to complete the online form. Youll be asked for your [facility] number which you can find at the top of this document. Your Goals/Additional instructions: Source: [facility] POWERCHART Document Id: [id number] Miscellaneous - Tasha Henriquez M.D. - 11/09/2016 5:34 PM CDT Ambulatory Discharge Medication List [facility] [address] [place], [place] [phone] Visit Information Name: DORITA SHEFFIELD [facility] Number: [id number] Current Date: 11/09/2016 17:34:29 Attending [...] MD Signed On:09-NOV-2016 17:34:26 Additional Information: Source: [facility] POWERCHART Document Id: [id number] Miscellaneous - Shruti Guillaume L.P.N. 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 [address] [place] [address] [phone] 06/22/2022 Diagnostic Pulmonary Medicine Rusty Vee M.D. [address] [place] [address] [phone] 06/22/2022 Diagnostic Pulmonary Medicine Rusty Vee M.D. [address] [place] [address] [phone] 06/22/2022 Appointment Radiology Rusty Vee M.D. [address] [place] [phone] 06/23/2022 Clinical Communication Admitting/Central Scheduling 06/28/2022 Appointment Pulmonary Medicine Rusty Vee M.D. [address] [place] [address] [phone] 06/28/2022 Appointment Pulmonary Medicine Rusty Vee M.D. [address] [place] [phone] documented as of this encounter Visit Diagnoses Not on filedocumented in this encounter
--- OUTSIDE RECORDS SUMMARY | 2022-05-25 21:04 | XMS_ITS | Encounter Summary ---
:[address] [facility] Address [address] [place] [id number] Care Team Providers Name Role Phone Unavailable Primary Care Provider Unavailable Encounter Details Date Type Department Care Team Description 11/24/2016 Hospital Encounter HX [facility] Marsha Henriquez M.D. [address] [place], [place] [address] [...] or relatives? How often do you attend jewish or More than 4 times per year 05/04/2022 [employer] services? Do you belong to any clubs or Yes 05/04/2022 organizations such as jewish groups, unions, fraternal or athletic groups, or [...] Date Recorded Female 05/03/2022 7:07 PM MANAGER OF BUSINESS documented as of this encounter Last Filed [...] Notes Miscellaneous - Wali Mcclellan, R.N. - 12/05/2016 9:30 AM CDT Yearly INR Renewal Document Contains Addenda Addendum by TASHA HENRIQUEZ MD on December 05, 2016 13:59:50 CDT From: TASHA HENRIQUEZ MD Sent: 12/05/2016 13:59:50 CDT Subject: RE:Yearly INR Renewal Approved Order:Anticoagulation Clinic Order Details: 12/05/2016 13:59 CDT, 12/05/2017 9:30 CDT, 2 - 3, g. Lifelong, DVT, lower extremity, [facility] Signed by TASHA HENRIQUEZ MD 12/05/2016 13:59:49 From: WALI MCCLELLAN RN ( Anticoagulation Nurse) To: TASHA HENRIQUEZ MD; Sent: 12/05/2016 09:30:27 CDT Subject: Yearly INR Renewal On hold pending signature Order:Anticoagulation Clinic Order Details: 12/05/2016 9:30 CDT, 12/05/2017 9:30 CDT, 2 - 3, g. Lifelong, DVT, lower extremity, [facility] Please sign annual INR renewal order if patient is still appropriate for same range and Coumadin. Thanks! Source: [facility] [employer] Document Id: [id number] Miscellaneous - Wali Mcclellan RMichaelNMichael - 12/05/2016 9:26 AM CDT Anticoagulation Patient [...] lackey LM /pharmacy WALI MCCLELLAN RN - 12/05/2016 9:26 CDT WALI MCCLELLAN RN - 12/05/2016 9:26 CDT WALI MCCLELLAN RN - 12/05/2016 9:26 CDT WALI MCCLELLAN RN - 12/05/2016 9:26 CDT Date : 04/17/2014 CDT 04/24/2014 CDT 05/01/2014 MANAGER OF BUSINESS 05/15/2014 MANAGER OF BUSINESS Location of INR sample : Lab Lab [...] will trynoted dose called to mom Fabiola [phone] called to Fabiola/no changes Called to mother/Fabiola, not awareof any changes Recommend Recheck : One week One week Two weeks Two weeks Plan completed by : MARIA GUADALUPE FITCH OZZY WALI MCCLELLAN RN - 12/05/2016 9:26 CDT WALI MCCLELLAN RN - 12/05/2016 9:26 CDWALI OGLESBY RN - 12/05/2016 9:26 CDT WALI MCCLELLAN RN - 12/05/2016 9:26 CDT Date : 06/03/2014 MANAGER OF BUSINESS 06/05/2014 MANAGER OF BUSINESS 06/10/2014 MANAGER OF BUSINESS 06/11/2014 MANAGER OF BUSINESS Location of INR sample : Lab Type [...] Called motherFabiola. Hue will be staying in [place] 2wks post-surgery & have INR drawn there. [...] lovenox tomorrow AM as ordered. INR in [place] for next several weeks as pt will be recovering there. Recommend Recheck : Other: depending on Dr. Henriquez's preop. Other: 06/18 Other: 06/13/14 Plan completed by : WALI TYLER RN - 12/05/2016 9:26 CDT WALI MCCLELLAN RN - 12/05/2016 9:26 CDT WALI MCCLELLAN RN - 12/05/2016 9:26 CDT WALI MCCLELLAN RN - 12/05/2016 9:26 CDT Date : 06/14/2014 MANAGER OF BUSINESS 06/14/2014 MANAGER OF BUSINESS 06/16/2014 MANAGER OF BUSINESS 06/23/2014 MANAGER OF BUSINESS Location of INR sample : Clinic Lab Lab Type of Sample : Venous Venous INR Result : 1.3 on 06/13 2.4 faxed from lab 2.0 Warfarin Dose : (pt took 2.5mg 06/13) 5mg Sat and 5mg Sun (06/14 and 06/15) 5mg Mon and 2.5mg all other days 5mg Mon and 2.5mg all other days Total Weekly Warfarin Dose : 20 20 Comment : [place] lab called with INR result from 06/13, reported they left a message with Dr. Henriquez and hadn't heard back, spoke with mother, Fabiola, and gave doses, continue Lovenox and repeat INR 06/16, message left with INR clinic in [place] to contact [facility] Please contact [place] lab on 06/16 for result and may call Fabiola at [phone] with instructions call to Fabiola/will stop Lovenox [...] - 12/05/2016 9:26 CDT Date : 07/10/2014 MANAGER OF BUSINESS 07/17/2014 MANAGER OF BUSINESS 07/31/2014 MANAGER OF BUSINESS 09/11/2014 CDT Location of INR sample : [...] Called to castro /Fabiola, no changes, rev'd w/Paul/Pharmacy Recommend Recheck : Three weeks One week [...] 9:26 CDT Date : 04/09/2015 CDT 05/07/2015 MANAGER OF BUSINESS 06/04/2015 MANAGER OF BUSINESS 07/02/2015 MANAGER OF BUSINESS Location of INR sample : Lab Lab [...] - 12/05/2016 9:26 CDT Date : 08/06/2015 MANAGER OF BUSINESS 09/17/2015 CDT 10/29/2015 CDT 11/12/2015 CDT Location [...] Brizuela, PharmJaime ASTUDILLO, PharmD Eliseo Quezada PharmD. WALI MCCLELLAN [...] Quezada, PharmValentina. Eliseo Quezada, PharmD. Tyshawn Brizuela, Pharm.DMichale Quezada, PharmD. WALI MCCLELLAN RN - 12/05/2016 [...] : Pt being discharged on Bactrim. Will slate picker rx for 2 mg tabs On bactrim 2 days left, has f/u in [place] on Monday. Pt mother states plan to return to [facility] on 03/06. next f/u will be in [facility]. 2mg TuWTh Rev'd with Jelly/Pharmacist,called to castro/Fabiola pt done with Adithyarizuri Henriquez today pt [...] 17.5 17.5 Comment : INR drawn in faxed to us,called to mom/Fabiola,no changes pt will be staying with sister in [facility] next week she will have INR drawn [...] - 12/05/2016 9:26 CDT Date : 05/11/2016 MANAGER OF BUSINESS 05/12/2016 MANAGER OF BUSINESS 05/17/2016 MANAGER OF BUSINESS 05/24/2016 MANAGER OF BUSINESS Location of INR sample : Other: Drawn in [place] Other: [place] Other: [place] Type of Sample : INR Result : 1.6 2.4 1.8 Warfarin Dose : 2.5mg daily 2.5mg daily 5mg 05/24 then 2.5mg daily Total Weekly Warfarin Dose : 17.5 Comment : Per Mom/Fabiola, pt disch from [facility] today, fell & fx left humerus 05/08, [...] - 12/05/2016 9:26 CDT Date : 06/01/2016 MANAGER OF BUSINESS 06/06/2016 MANAGER OF BUSINESS 06/10/2016 MANAGER OF BUSINESS 06/13/2016 MANAGER OF BUSINESS Location of INR sample : Other: [place] Other: [facility] Other: [facility] Type [...] - 12/05/2016 9:26 CDT Date : 06/17/2016 MANAGER OF BUSINESS 06/24/2016 MANAGER OF BUSINESS 07/07/2016 MANAGER OF BUSINESS 07/28/2016 MANAGER OF BUSINESS Location of INR sample : Other: [facility] [...] changes,pt is having tooth pulled 08/31/16 at [facility] Oral Surgery will need INR checked that am scheduled.letter faxed to [facility] oral surgery to see what INR needs leon Recommend Recheck : One week Other: 07/07/16 Three weeks Two weeks Plan completed by : WALI GIBBS RN - 12/05/2016 9:26 CDT WALI MCCLELLAN RN - 12/05/2016 9:26 CDT WALI MCCLELLAN RN - 12/05/2016 9:26 CDT WALI MCCLELLAN RN - 12/05/2016 9:26 CDT Date : 08/11/2016 MANAGER OF BUSINESS 08/31/2016 MANAGER OF BUSINESS 09/29/2016 CDT 10/27/2016 CDT Location of INR [...] to Mom/Fabiola/states has appt on 11/01 in [place]/may need surgery on non healing arm fx/surgery [...] MCCLELLAN RN - 12/05/2016 9:26 CDT Source: [employer] Document Id: [id number] CDT![id number] Miscellaneous - Khadar Banda RViktor - 11/24/2016 11:12 AM CDT Anticoagulation Patient [...] completed by : KHADAR Cho RN - 11/24/2016 11:12 CDT KHADAR BANDA [...] : 04/17/2014 CDT 04/24/2014 CDT 05/01/2014 MANAGER OF BUSINESS 05/15/2014 MANAGER OF BUSINESS Location of INR sample : Lab Lab [...] will trynoted dose called to mom Fabiola [phone] called to Fabiola/no changes Called to mother/Fabiola, not awareof any changes Recommend Recheck : One week One week Two weeks Two weeks Plan completed by : KHADAR HACKETT RN - 11/24/2016 11:12 CDT KHADAR BANDA RN - 11/24/2016 11:12 CDT KHADAR BANDA RN - 11/24/2016 11:12 CDT KHADAR BANDA RN - 11/24/2016 11:12 CDT Date : 06/03/2014 MANAGER OF BUSINESS 06/05/2014 MANAGER OF BUSINESS 06/10/2014 MANAGER OF BUSINESS 06/11/2014 MANAGER OF BUSINESS Location of INR sample : Lab Type [...] Called motherFabiolaMichael Swann will be staying in [place] 2wks post-surgery & have INR drawn there. [...] lovenox tomorrow AM as ordered. INR in [place] for next several weeks as pt will be recovering there. Recommend Recheck : Other: depending on Dr. Henriquez's preop. Other: 06/18 Other: 06/13/14 Plan completed by : KHADAR SANDERS RN - 11/24/2016 11:12 CDT KHADAR BANDA RN - 11/24/2016 11:12 CDT KHADAR BANDA RN - 11/24/2016 11:12 CDT KHADAR BANDA RN - 11/24/2016 11:12 CDT Date : 06/14/2014 MANAGER OF BUSINESS 06/14/2014 MANAGER OF BUSINESS 06/16/2014 MANAGER OF BUSINESS 06/23/2014 MANAGER OF BUSINESS Location of INR sample : Clinic Lab Lab Type of Sample : Venous Venous INR Result : 1.3 on 06/13 2.4 faxed from lab 2.0 Warfarin Dose : (pt took 2.5mg 06/13) 5mg Sat and 5mg Sun (06/14 and 06/15) 5mg Mon and 2.5mg all other days 5mg Mon and 2.5mg all other days Total Weekly Warfarin Dose : 20 20 Comment : [place] lab called with INR result from 06/13, reported they left a message with Dr. Henriquez and hadn't heard back, spoke with mother, Fabiola, and gave doses, continue Lovenox and repeat INR 06/16, message left with INR clinic in to contact CF Please contact [place] lab on 06/16 for result and may call Fabiola at [phone] with instructions call to Fabiola/will stop Lovenox [...] - 11/24/2016 11:12 CDT Date : 07/10/2014 MANAGER OF BUSINESS 07/17/2014 MANAGER OF BUSINESS 07/31/2014 MANAGER OF BUSINESS 09/11/2014 CDT Location of INR sample : [...] completed by : KHADAR Dumont RN - 11/24/2016 11:12 CDT KHADAR BANDA [...] completed by : KHADAR Rondon RN - 11/24/2016 11:12 CDT KHADAR BANDA [...] is she is 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 Modify/no bleeding/consult with Quintin/Pharmacy and called Mom with orders Per Meredith Hernandez, no changes, has been drinking some Kiwi Juice, no bleeding/consult with Quintin/Pharmacy Called to mom /Fabiola, no changes, [facility] Recommend Recheck : Three weeks [...] 11:12 CDT Date : 04/09/2015 CDT 05/07/2015 MANAGER OF BUSINESS 06/04/2015 MANAGER OF BUSINESS 07/02/2015 MANAGER OF BUSINESS Location of INR sample : Lab Lab [...] - 11/24/2016 11:12 CDT Date : 08/06/2015 MANAGER OF BUSINESS 09/17/2015 CDT 10/29/2015 CDT 11/12/2015 CDT Location [...] completed by : KHADAR Newman RN - 11/24/2016 11:12 CDT KHADAR BANDA RN - 11/24/2016 11:12 CDT KHADAR BANDA RN - 11/24/2016 11:12 CDT KHADAR BANDA RN - 11/24/2016 11:12 CDT Date : 02/19/2016 CDT 02/20/2016 CDT 02/21/2016 CDT 02/22/2016 CDT Location of INR sample : [facility] Type of Sample : [...] Eliseo Quezada, ReaD. KHADAR BANDA RN - 11/24/2016 11:12 CDT KHADAR BANDA RN - 11/24/2016 11:12 CDT RONAK BANDAELEStarla Simmons RN - 11/24/2016 11:12 CDT SOLO KHADAR L RN - 11/24/2016 11:12 CDT Date : [...] PharmD. Tyshawn Brizuela, Pharm.D. Eliseo Quezada, PharmD. SOLO KHADAR L RN - 11/24/2016 11:12 CDT RONAK BANDAELEStarla Simmons RN - 11/24/2016 11:12 CDT RONAK BANDAELEStarla Simmons RN - 11/24/2016 11:12 CDT RONAK BANDAELEStarla Simmons RN - 11/24/2016 11:12 CDT Date : [...] : Pt being discharged on Bactrim. Will [facility] pick[facility] rx for 2 mg tabs On bactrim 2 days left, has f/u in [place] on Monday. Pt mother states plan to return to [facility] on 03/06. next f/u will be in again. 2mg TuWTh Rev'd with Jelly/Pharmacist,called to mom/Fabiola pt done with [facility] [place] today pt is going back [...] pt will be staying with sister in [facility] next week she will have INR drawn in [place] again called to Fabiola/pt to do next INR at on ./no changes called to Fabiola/no changes called to Fabiola/Mom,no changes/missed doses Recommend Recheck : Other: 03/16/16 Other: 03/31/16(2 weeks) One month Two weeks Plan completed by : JENIFER PRECIADO ly KHADAR BAILEY RN - 11/24/2016 11:12 CDT KHADAR BANDA RN - 11/24/2016 11:12 CDT KHADAR BANDA RN - 11/24/2016 11:12 CDT KHADAR BANDA RN - 11/24/2016 11:12 CDT Date : 05/11/2016 MANAGER OF BUSINESS 05/12/2016 MANAGER OF BUSINESS 05/17/2016 MANAGER OF BUSINESS 05/24/2016 MANAGER OF BUSINESS Location of INR sample : Other: Drawn in [place] Other: [place] Other: [place] Type of Sample : INR Result : 1.6 2.4 1.8 Warfarin Dose : 2.5mg daily 2.5mg daily 5mg 05/24 then 2.5mg daily Total Weekly Warfarin Dose : 17.5 Comment : Per Mom/Fabiola, pt disch from [facility], fell & fx left humerus [...] - 11/24/2016 11:12 CDT Date : 06/01/2016 MANAGER OF BUSINESS 06/06/2016 MANAGER OF BUSINESS 06/10/2016 MANAGER OF BUSINESS 06/13/2016 MANAGER OF BUSINESS Location of INR sample : Other: [place] Other: [facility] Other: [facility] [...] - 11/24/2016 11:12 CDT Date : 06/17/2016 MANAGER OF BUSINESS 06/24/2016 MANAGER OF BUSINESS 07/07/2016 MANAGER OF BUSINESS 07/28/2016 MANAGER OF BUSINESS Location of INR sample : Other: [facility] Other: [facility] Lab Lab Type of Sample : [...] changes,pt is having tooth pulled 08/31/16 at [facility] Oral Surgery will need INR checked that am scheduled.letter faxed to [facility] oral surgery to see what INR needs leon Recommend Recheck : One week Other: 07/07/16 Three weeks Two weeks Plan completed by : KHADAR VIRK RN - 11/24/2016 11:12 CDT KHADAR BANDA RN - 11/24/2016 11:12 CDT KHADAR BANDA RN - 11/24/2016 11:12 CDT KHADAR BANDA RN - 11/24/2016 11:12 CDT Date : 08/11/2016 MANAGER OF BUSINESS 08/31/2016 MANAGER OF BUSINESS 09/29/2016 CDT 10/27/2016 CDT Location of INR [...] to Mom/Fabiola/states has appt on 11/01 in [place]/may need surgery on non healing arm fx/surgery tentatively scheduled for 12/21/ calendar to check [employer] for pre-op instructions and schedule next INR Recommend Recheck : Plan completed by : KHADAR EPPERSON RN - 11/24/2016 11:12 CDT Anticoagulation Assessment [...] BANDA RN - 11/24/2016 11:12 CDT Source: [facility] [employer] Document Id: [id number] CDT![id number] Miscellaneous - Khadar Banda R.N. - 11/24/2016 9:52 AM CDT Results Notification From: KHADAR BANDA RN ( Anticoagulation Nurse) To: Anticoagulation Nurse; Sent: 11/24/2016 09:52:17 CDT Show up: 11/24/2016 09:53:00 CDT Subject: Results Notification Results: Date Result Name Value Ref Range 11/24/2016 08:00 PT 24.1 second(s) (8.8 - 11.9) 11/24/2016 08:00 INR 2.2 (0.9 - 1.2) [facility] Document Id: [id number] documented in this encounter Plan of Treatment Upcoming Encounters Date Type Specialty Care Team Description 06/22/2022 Appointment Laboratory Medicine Rusty Vee M.D. [address] [place] [phone] 06/22/2022 Diagnostic Pulmonary Medicine Rusty Vee M.D. [address] [place] [phone] 06/22/2022 Diagnostic Pulmonary Medicine Rusty Vee M.D. [address] [place] [phone] 06/22/2022 Appointment Radiology Rusty Vee M.D. [address] [place] [phone] 06/23/2022 Clinical Communication Admitting/Central Scheduling 06/28/2022 Appointment Pulmonary Medicine Rusty Vee M.D. [address] [place] [phone] 06/28/2022 Appointment Pulmonary Medicine Rusty Vee M.D. [address] [place] [phone] documented as of this encounter Procedures Procedure Name Priority Date/Time Associated Comments Diagnosis PROTHROMBIN TIME Routine 11/24/2016 8:00 AM Resul ts for this (PT), P CDT procedure are i n the results section. documented in this encounter Results (ABNORMAL) PT (Prothrombin Time) with INR (11/24/2016 8:00 AM CDT) [facility] Method Time Signature Prothrombin 24.1 (H) [...]
--- OUTSIDE RECORDS SUMMARY | 2022-05-25 21:04 | XMS_ITS | Encounter Summary ---
:1975 Author Organization [facility] Address [address] [place] [address] Care Team Providers Name Role Phone Unavailable Primary Care Provider Unavailable Encounter Details Date Type Department Care Team Description 10/27/2016 Hospital Encounter HX [facility] Marsha Henriquez M.D. [address] [place], [place] [address] (Wo rk) Social [...] or relatives? How often do you attend scientology or More than 4 times per year 05/04/2022 congregation services? Do you belong to any clubs or Yes 05/04/2022 organizations such as scientology groups, unions, fraternal or athletic groups, or [...] Date Recorded Female 05/03/2022 7:07 PM CORPORATE CLAIMS EXAMINER documented as of this encounter Last Filed [...] Notes Miscellaneous - Hanna Truong, R.N. - 10/27/2016 11:18 AM CDT Anticoagulation [...] completed by : HANNA Ann RN - 10/27/2016 11:18 CDT HANNA TRUONG [...] Date : 04/17/2014 CDT 04/24/2014 CDT 05/01/2014 CORPORATE CLAIMS EXAMINER 05/15/2014 CORPORATE CLAIMS EXAMINER Location of INR sample : Lab Lab [...] will trynoted dose called to mom Fabiola [phone] called to Fabiola/no changes Called to mother/Fabiola, not awareof any changes Recommend Recheck : One week One week Two weeks Two weeks Plan completed by : HANNA CLAY RN - 10/27/2016 11:18 CDT HANNA TRUONG RN - 10/27/2016 11:18 CDT HANNA TRUONG RN - 10/27/2016 11:18 CDT HANNA TRUONG RN - 10/27/2016 11:18 CDT Date : 06/03/2014 CORPORATE CLAIMS EXAMINER 06/05/2014 CORPORATE CLAIMS EXAMINER 06/10/2014 CORPORATE CLAIMS EXAMINER 06/11/2014 CORPORATE CLAIMS EXAMINER Location of INR sample : Lab Type [...] Called motherFabiola. Hue will be staying in [place] 2wks post-surgery & have INR drawn there. [...] lovenox tomorrow AM as ordered. INR in [place] for next several weeks as pt will be recovering there. Recommend Recheck : Other: depending on Dr. Henriquez's preop. Other: 06/18 Other: 06/13/14 Plan completed by : HANNA MARTIN RN - 10/27/2016 11:18 CDT HANNA TRUONG RN - 10/27/2016 11:18 CDT HANNA TRUONG RN - 10/27/2016 11:18 CDT HANNA TRUONG RN - 10/27/2016 11:18 CDT Date : 06/14/2014 CORPORATE CLAIMS EXAMINER 06/14/2014 CORPORATE CLAIMS EXAMINER 06/16/2014 CORPORATE CLAIMS EXAMINER 06/23/2014 CORPORATE CLAIMS EXAMINER Location of INR sample : Clinic Lab Lab Type of Sample : Venous Venous INR Result : 1.3 on 06/13 2.4 faxed from lab 2.0 Warfarin Dose : (pt took 2.5mg 06/13) 5mg Sat and 5mg Sun (06/14 and 06/15) 5mg Mon and 2.5mg all other days 5mg Mon and 2.5mg all other days Total Weekly Warfarin Dose : 20 20 Comment : [place] jenniffer called with INR result from 06/13, reported they left a message with Dr. Henriquez and hadn't heard back, spoke with mother, Fabiola, and gave doses, continue Lovenox and repeat INR 06/16, message left with INR clinic in to contact CF Please contact [place] lab on 06/16 for result and may call Fabiola at [phone] with instructions call to Fabiola/will stop Lovenox injections and take noted dose/pt has an appt here in [place] 06/23 so will do lab appt here that day Called to Fabiola/ Hue will be back at [facility] by next draw. will have done on . no changes to meds/diet. Recommend Recheck : Two days One week Two weeks Plan completed by : HANNA Neri LM RN - 10/27/2016 11:18 CDT HANNA TRUONG RN - 10/27/2016 11:18 CDT HANNA TRUONG RN - 10/27/2016 11:18 CDT HANNA TRUONG RN - 10/27/2016 11:18 CDT Date : 07/10/2014 CORPORATE CLAIMS EXAMINER 07/17/2014 CORPORATE CLAIMS EXAMINER 07/31/2014 CORPORATE CLAIMS EXAMINER 09/11/2014 CDT Location of INR sample : [...] called to Mom/Fabiola, no changes called to DavidFabiola, only change is she is exercising alot [...] completed by : HANNA Healy RN - 10/27/2016 11:18 CDT HANNA TRUONG [...] 11:18 CDT Date : 04/09/2015 CDT 05/07/2015 CORPORATE CLAIMS EXAMINER 06/04/2015 CORPORATE CLAIMS EXAMINER 07/02/2015 CORPORATE CLAIMS EXAMINER Location of INR sample : Lab Lab [...] - 10/27/2016 11:18 CDT Date : 08/06/2015 CORPORATE CLAIMS EXAMINER 09/17/2015 CDT 10/29/2015 CDT 11/12/2015 CDT Location [...] Eliseo Quezada, PharmD. HANNA TRUONG RN - 10/27/2016 11:18 CDT [...] Eliseo Quezada, PharmD. HANNA TRUONG RN - 10/27/2016 11:18 CDT [...] : Pt being discharged on Bactrim. Will flower buncher or picker rx for 2 mg tabs On bactrim 2 days left, has f/u in [place] on Monday. Pt mother states plan to return to [facility] on 03/06. next f/u will be in [facility]. 2mg TuWTh Rev'd with Jelly/Pharmacist,called [...] pt will be staying with sister in [facility] next week she will have INR drawn in [place] again called to Fabiola/pt to do next INR at on ./no changes called to Fabiola/no changes called to Fabiola/Mom,no changes/missed doses Recommend Recheck : Other: 03/16/16 Other: 03/31/16(2 weeks) One month Two weeks Plan completed by : JENIFER PRECIADO ly HANNA MARADIAGA RN - 10/27/2016 11:18 CDT HANNA TRUONG RN - 10/27/2016 11:18 CDT HANNA TRUONG RN - 10/27/2016 11:18 CDT HANNA TRUONG RN - 10/27/2016 11:18 CDT Date : 05/11/2016 CORPORATE CLAIMS EXAMINER 05/12/2016 CORPORATE CLAIMS EXAMINER 05/17/2016 CORPORATE CLAIMS EXAMINER 05/24/2016 CORPORATE CLAIMS EXAMINER Location of INR sample : Other: Drawn in [place] Other: [place] Other: [place] Type of Sample : INR Result : 1.6 2.4 1.8 Warfarin Dose : 2.5mg daily 2.5mg daily 5mg 05/24 then 2.5mg daily Total Weekly Warfarin Dose : 17.5 Comment : Per Mom/Fabiola, pt disch from [facility] today, fell & fx left humerus 05/08, [...] : HANNA SIERRA RN - 10/27/2016 11:18 CDT HANNA TRUONG RN - 10/27/2016 11:18 CDT HANNA TRUONG RN - 10/27/2016 11:18 CDT HANNA TRUONG RN - 10/27/2016 11:18 CDT Date : 06/01/2016 CORPORATE CLAIMS EXAMINER 06/06/2016 CORPORATE CLAIMS EXAMINER 06/10/2016 CORPORATE CLAIMS EXAMINER 06/13/2016 CORPORATE CLAIMS EXAMINER Location of INR sample : Other: [place] Other: [facility] CF Other: [facility] Type of Sample : INR Result : 1.6 1.4 1.6 2.2 Warfarin Dose : 5mg 06/02, 2.5mg 06/03, 06/04, 06/05 5mg 06/06 & 12/,2.5mg 06/08 & 15 5mg12/16, 06/11, 2.5mg 18 2.5mg Mon,Wed,fri and 5mg all other days Total Weekly Warfarin Dose : Comment : processed 06/02/had 2.5mg last night/called to Mom/Fabiola, no changes rev'd with Burke/Pharmacist,called to mom/Fabiola pt is staying with sister no changes she is aware of will be back 06/10 rev'd with Quintin/Pharmacy/called to Mom, Fabiola rev'd with Prasad/Phucst,called to mom Recommend Recheck : Other: 06/06/2016 Other: 06/10/16 Three days Other: 06/17/16 Plan completed by : HANNA Chen RN - 10/27/2016 11:18 CDT HANNA TRUONG RN - 10/27/2016 11:18 CDT HANNA TRUONG RN - 10/27/2016 11:18 CDT HANNA TRUONG RN - 10/27/2016 11:18 CDT Date : 06/17/2016 CORPORATE CLAIMS EXAMINER 06/24/2016 CORPORATE CLAIMS EXAMINER 07/07/2016 CORPORATE CLAIMS EXAMINER 07/28/2016 CORPORATE CLAIMS EXAMINER Location of INR sample : Other: [facility] CF Other: [facility] Lab Lab Type of Sample : Venous [...] changes,pt is having tooth pulled 08/31/16 at [facility] Oral Surgery will need INR checked that am scheduled.letter faxed to [facility] oral surgery to see what INR needs leon Recommend Recheck : One week Other: 07/07/16 Three weeks Two weeks Plan completed by : HANNA OROURKE RN - 10/27/2016 11:18 CDT HANNA TRUONG RN - 10/27/2016 11:18 CDT HANNA TRUONG RN - 10/27/2016 11:18 CDT HANNA TRUONG RN - 10/27/2016 11:18 CDT Date : 08/11/2016 CORPORATE CLAIMS EXAMINER 08/31/2016 CORPORATE CLAIMS EXAMINER 09/29/2016 CDT 10/27/2016 CDT Location of INR [...] TRUONG RN - 10/27/2016 11:18 CDT Source: [facility] POWERCHART Document Id: [id number] CDT![id number] Miscellaneous - Hanna Truong R.N. - [...] 08:00 INR 2.8 (0.9 - 1.2) Source: [facility] POWERCHART Document Id: [id number] Electronically signed by Conversion, [facility] Inventory Analyst [id number] at 12/06/2016 4:10 AM CDT documented in this encounter Plan of Treatment Upcoming Encounters Date Type Specialty Care Team Description 06/22/2022 Appointment Laboratory Medicine Rusty Vee M.D. [address] [place] [phone] 06/22/2022 Diagnostic Pulmonary Medicine Rusty Vee M.D. [address] [place] [phone] 06/22/2022 Diagnostic Pulmonary Medicine Rusty Vee M.D. [address] [place] [phone] 06/22/2022 Appointment Radiology Rusty Vee M.D. [address] [place] [phone] 06/23/2022 Clinical Communication Admitting/Central Scheduling 06/28/2022 Appointment Pulmonary Medicine Rusty Vee M.D. [address] [place] [phone] 06/28/2022 Appointment Pulmonary Medicine Rusty Vee M.D. [address] [place] [phone] documented as of this encounter Procedures Procedure Name Priority Date/Time Associated Comments Diagnosis PROTHROMBIN TIME Routine 10/27/2016 8:00 AM Resul ts for this (PT), P CDT procedure are i n the results section. documented in this encounter Results (ABNORMAL) PT (Prothrombin Time) with INR (10/27/2016 8:00 AM CDT) Patholo gist Method Time Signature Prothrombin 31.3 (H) [...]
--- OUTSIDE RECORDS SUMMARY | 2022-05-25 21:04 | XMS_ITS | Encounter Summary ---
:1975 Author Organization [facility] Address [address] [place] [id number] Care Team Providers Name Role Phone Unavailable Primary Care Provider Unavailable Encounter Details Date Type Department Care Team Description 07/28/2016 Hospital Encounter HX [facility] Marsha Henriquez M.D. [address] [place], [place] [address] (Wo rk) Social History [...] or relatives? How often do you attend gnosticism or More than 4 times per year 05/04/2022 temple services? Do you belong to any clubs or Yes 05/04/2022 organizations such as gnosticism groups, unions, fraternal or athletic groups, or [...] at Date Recorded Female 05/03/2022 7:07 PM ROUTE DELIVERY SUPERVISOR documented as of this encounter Last Filed Vital Signs Vital Sign Reading Time Taken Comments Blood Pressure - - Pulse - - Temperature - - Respiratory Rate - - Oxygen Saturation - - Inhaled Oxygen Concentration - - Weight - - Height 146 cm (4' 9.48) 07/28/2016 7:13 AM ROUTE DELIVERY SUPERVISOR Body Mass Index - - documented in [...] Notes Miscellaneous - Meli Campo, R.N. - 07/28/2016 11:18 AM CST Anticoagulation Patient Intake Anticoagulation Patient Intake Entered On: 07/28/2016 11:22 ROUTE DELIVERY SUPERVISOR Performed On: 07/28/2016 11:18 ROUTE DELIVERY SUPERVISOR by MELI CAMPO RN Plan INR goal range : 2.0 - 3.0 Duration of Therapy : Lifelong Tablet Size : 2 mg, 5 mg MELI CAMPO RN - 07/28/2016 11:18 ROUTE DELIVERY SUPERVISOR Anticoagulation Management Plan Grid Date : 09/05/2013 [...] completed by : MELI Vidal RN - 07/28/2016 11:18 MELI ROJO RN - 07/28/2016 11:18 MELI ROJO - 07/28/2016 11:18 MELI ROJO RN - 07/28/2016 11:18 ROUTE DELIVERY SUPERVISOR Date : 12/26/2013 CDT 01/30/2014 CDT 03/06/2014 [...] : MELI Pradhan RN - 07/28/2016 11:18 MELI ROJO RN - 07/28/2016 11:18 MELI ROJO - 07/28/2016 11:18 MELI ROJO RN - 07/28/2016 11:18 ROUTE DELIVERY SUPERVISOR Date : 03/20/2014 CDT 03/27/2014 CDT 04/10/2014 [...] lackey LM /pharmacy MELI CAMPO RN - 07/28/2016 11:18 ROUTE DELIVERY SUPERVISOR MELI CAMPO RN - 07/28/2016 11:18 ROUTE DELIVERY SUPERVISOR MELI CAMPO - 07/28/2016 11:18 ROUTE DELIVERY SUPERVISOR MELI CAMPO RN - 07/28/2016 11:18 ROUTE DELIVERY SUPERVISOR Date : 04/17/2014 CDT 04/24/2014 CDT 05/01/2014 ROUTE DELIVERY SUPERVISOR 05/15/2014 ROUTE DELIVERY SUPERVISOR Location of INR sample : Lab [...] will trynoted dose called to mom Fabiola [phone] called to Fabiola/no changes Called to mother/Fabiola, not awareof any changes Recommend Recheck : One week One week Two weeks Two weeks Plan completed by : MELI LEON RN - 07/28/2016 11:18 ROUTE DELIVERY SUPERVISOR MELI CAMPO RN - 07/28/2016 11:18 ROUTE DELIVERY SUPERVISOR MELI CAMPO - 07/28/2016 11:18 ROUTE DELIVERY SUPERVISOR MELI CAMPO RN - 07/28/2016 11:18 ROUTE DELIVERY SUPERVISOR Date : 06/03/2014 ROUTE DELIVERY SUPERVISOR 06/05/2014 ROUTE DELIVERY SUPERVISOR 06/10/2014 ROUTE DELIVERY SUPERVISOR 06/11/2014 ROUTE DELIVERY SUPERVISOR Location of INR sample : Lab [...] Called motherFabiola. Hue will be staying in [place] 2wks post-surgery & have INR drawn there. [...] lovenox tomorrow AM as ordered. INR in [place] for next several weeks as pt will be recovering there. Recommend Recheck : Other: depending on Dr. Henriquez's preop. Other: 06/18 Other: 06/13/14 Plan completed by : MELI ROSADO RN - 07/28/2016 11:18 ROUTE DELIVERY SUPERVISOR MELI CAMPO RN - 07/28/2016 11:18 ROUTE DELIVERY SUPERVISOR MELI CAMPO - 07/28/2016 11:18 MELI ROJO RN - 07/28/2016 11:18 ROUTE DELIVERY SUPERVISOR Date : 06/14/2014 ROUTE DELIVERY SUPERVISOR 06/14/2014 ROUTE DELIVERY SUPERVISOR 06/16/2014 ROUTE DELIVERY SUPERVISOR 06/23/2014 ROUTE DELIVERY SUPERVISOR Location of INR sample : Clinic [...] Warfarin Dose : 20 20 Comment : [place] lab called with INR result from 06/13, reported they left a message with Dr. Henriquez and hadn't heard back, spoke with mother, Fabiola, and gave doses, continue Lovenox and repeat INR 06/16, message left with INR clinic in [place] to contact [facility] Please contact [facility] on 06/16 for result and may call Fabiola at [phone] with instructions call to Fabiola/will stop Lovenox [...] by : MELI Vazquez LM RN - 07/28/2016 11:18 ROUTE DELIVERY SUPERVISOR MELI CAMPO RN - 07/28/2016 11:18 MELI ROJON - 07/28/2016 11:18 MELI ROJO RN - 07/28/2016 11:18 ROUTE DELIVERY SUPERVISOR Date : 07/10/2014 ROUTE DELIVERY SUPERVISOR 07/17/2014 ROUTE DELIVERY SUPERVISOR 07/31/2014 ROUTE DELIVERY SUPERVISOR 09/11/2014 CDT Location of INR sample [...] : MELI Rubi RN - 07/28/2016 11:18 ROUTE DELIVERY SUPERVISOR MELI CAMPO RN - 07/28/2016 11:18 ROUTE DELIVERY SUPERVISOR MELI CAMPO - 07/28/2016 11:18 ROUTE DELIVERY SUPERVISOR MELI CAMPO RN - 07/28/2016 11:18 ROUTE DELIVERY SUPERVISOR Date : 09/12/2014 CDT 09/25/2014 CDT 10/02/2014 [...] GUADALUPE lackey JM MELI Carroll RN - 07/28/2016 11:18 ROUTE DELIVERY SUPERVISOR MELI CAMPO RN - 07/28/2016 11:18 ROUTE DELIVERY SUPERVISOR MELI CAMPO - 07/28/2016 11:18 ROUTE DELIVERY SUPERVISOR MELI CAMPO RN - 07/28/2016 11:18 ROUTE DELIVERY SUPERVISOR Date : 10/23/2014 CDT 11/13/2014 CDT 11/20/2014 [...] : MELI Bailey RN - 07/28/2016 11:18 ROUTE DELIVERY SUPERVISOR MELI CAMPO RN - 07/28/2016 11:18 ROUTE DELIVERY SUPERVISOR MELI CAMPO - 07/28/2016 11:18 MELI ROJO RN - 07/28/2016 11:18 ROUTE DELIVERY SUPERVISOR Date : 12/04/2014 CDT 12/18/2014 CDT 01/15/2015 [...] : MELI Shirley RN - 07/28/2016 11:18 ROUTE DELIVERY SUPERVISOR MELI CAMPO RN - 07/28/2016 11:18 MELI ROJO - 07/28/2016 11:18 ROUTE DELIVERY SUPERVISOR MELI CAMPO RN - 07/28/2016 11:18 ROUTE DELIVERY SUPERVISOR Date : 02/05/2015 CDT 02/26/2015 CDT 03/05/2015 [...] : MELI CAMPOS RN - 07/28/2016 11:18 ROUTE DELIVERY SUPERVISOR MELI CAMPO RN - 07/28/2016 11:18 ROUTE DELIVERY SUPERVISOR MELI CAMPO - 07/28/2016 11:18 ROUTE DELIVERY SUPERVISOR MELI CAMPO RN - 07/28/2016 11:18 ROUTE DELIVERY SUPERVISOR Date : 04/09/2015 CDT 05/07/2015 ROUTE DELIVERY SUPERVISOR 06/04/2015 ROUTE DELIVERY SUPERVISOR 07/02/2015 ROUTE DELIVERY SUPERVISOR Location of INR sample : Lab [...] : MELI Keating RN - 07/28/2016 11:18 ROUTE DELIVERY SUPERVISOR MELI CAMPO RN - 07/28/2016 11:18 MELI ROJO - 07/28/2016 11:18 MELI ROJO RN - 07/28/2016 11:18 ROUTE DELIVERY SUPERVISOR Date : 08/06/2015 ROUTE DELIVERY SUPERVISOR 09/17/2015 CDT 10/29/2015 CDT 11/12/2015 CDT Location [...] : MELI Edwards RN - 07/28/2016 11:18 MELI ROJO RN - 07/28/2016 11:18 MELI ROJO - 07/28/2016 11:18 MELI ROJO RN - 07/28/2016 11:18 ROUTE DELIVERY SUPERVISOR Date : 11/19/2015 CDT 12/03/2015 CDT 12/31/2015 [...] : MELI Pickett RN - 07/28/2016 11:18 ROUTE DELIVERY SUPERVISOR MELI CAMPO RN - 07/28/2016 11:18 ROUTE DELIVERY SUPERVISOR MELI CAMPO LRN - 07/28/2016 11:18 ROUTE DELIVERY SUPERVISOR MELI CAMPO RN - 07/28/2016 11:18 ROUTE DELIVERY SUPERVISOR Date : 02/19/2016 CDT 02/20/2016 CDT 02/21/2016 CDT 02/22/2016 CDT Location of INR sample : [facility] Type of Sample : Venous [...] PharmD Rea LeonD. MELI CAMPO RN - 07/28/2016 11:18 ROUTE DELIVERY SUPERVISOR MELI CAMPO RN - 07/28/2016 11:18 ROUTE DELIVERY SUPERVISOR MELI CAMPO N - 07/28/2016 11:18 ROUTE DELIVERY SUPERVISOR MELI CAMPO RN - 07/28/2016 11:18 ROUTE DELIVERY SUPERVISOR Date : 02/23/2016 CDT 02/24/2016 CDT 02/25/2016 CDT 02/26/2016 CDT Location of INR sample : [facility] Type of Sample : Venous Venous [...] Eliseo Quezada, ReaD. MELI CAMPO RN - 07/28/2016 11:18 ROUTE DELIVERY SUPERVISOR MELI CAMPO RN - 07/28/2016 11:18 ROUTE DELIVERY SUPERVISOR MELI CAMPO - 07/28/2016 11:18 ROUTE DELIVERY SUPERVISOR MELI CAMPO RN - 07/28/2016 11:18 ROUTE DELIVERY SUPERVISOR Date : 02/27/2016 CDT 03/01/2016 CDT 03/04/2016 CDT 03/07/2016 CDT [facility] Type of Sample : Venous Capillary/POC Venous Capillary/POC INR Result : 2.07 2.5 2.2 2.4 Warfarin Dose : 2 mg daily 2mg daily 2.5mg 03/04-03/06 2.5mg Mon,Mon,Mon Total Weekly Warfarin Dose : 14 15.5 Comment : Pt being discharged on Bactrim. Will picker operator rx for 2 mg tabs On bactrim 2 days left, has f/u in [place] on Monday. Pt mother states plan to return to [facility] on 03/06. next f/u will be in [facility]. 2mg TuWTh Rev'd with Jelly/Pharmacist,called [...] : MELI Bone RN, RN RN - 07/28/2016 11:18 ROUTE DELIVERY SUPERVISOR MELI CAMPO RN - 07/28/2016 11:18 ROUTE DELIVERY SUPERVISOR MELI CAMPO - 07/28/2016 11:18 ROUTE DELIVERY SUPERVISOR MELI CAMPO RN - 07/28/2016 11:18 ROUTE DELIVERY SUPERVISOR Date : 03/11/2016 CDT 03/16/2016 CDT 03/31/2016 [...] pt will be staying with sister in [facility] next week she will have INR drawn in again called to Fabiola/pt to do next INR at [place] on ./no changes called to Fabiola/no changes called to Fabiola/Mom,no changes/missed doses Recommend Recheck : Other: 03/16/16 Other: 03/31/16(2 weeks) One month Two weeks Plan completed by : MELI Lorenzana RN - 07/28/2016 11:18 ROUTE DELIVERY SUPERVISOR MELI CAMPO RN - 07/28/2016 11:18 ROUTE DELIVERY SUPERVISOR MELI CAMPON - 07/28/2016 11:18 ROUTE DELIVERY SUPERVISOR MELI CAMPO RN - 07/28/2016 11:18 ROUTE DELIVERY SUPERVISOR Date : 05/11/2016 ROUTE DELIVERY SUPERVISOR 05/12/2016 ROUTE DELIVERY SUPERVISOR 05/17/2016 ROUTE DELIVERY SUPERVISOR 05/24/2016 ROUTE DELIVERY SUPERVISOR Location of INR sample : Other: Dra[place] Other: [place] Other: [place] Type of Sample : INR Result : 1.6 2.4 1.8 Warfarin Dose : 2.5mg daily 2.5mg daily 5mg 05/24 then 2.5mg daily Total Weekly Warfarin Dose : 17.5 Comment : Per Mom/Fabiola, pt disch from [facility] today, fell & fx left [...] : MELI ODEN RN - 07/28/2016 11:18 ROUTE DELIVERY SUPERVISOR MELI CAMPO RN - 07/28/2016 11:18 MELI ROJO - 07/28/2016 11:18 ROUTE DELIVERY SUPERVISOR MELI CAMPO RN - 07/28/2016 11:18 ROUTE DELIVERY SUPERVISOR Date : 06/01/2016 ROUTE DELIVERY SUPERVISOR 06/06/2016 ROUTE DELIVERY SUPERVISOR 06/10/2016 ROUTE DELIVERY SUPERVISOR 06/13/2016 ROUTE DELIVERY SUPERVISOR Location of INR sample : Other: [place] Other: [facility] CF Other: [facility] CF Type of Sample : INR [...] : MELI Wiggins RN - 07/28/2016 11:18 ROUTE DELIVERY SUPERVISOR MELI CAMPO RN - 07/28/2016 11:18 ROUTE DELIVERY SUPERVISOR MELI CAMPO - 07/28/2016 11:18 ROUTE DELIVERY SUPERVISOR MELI CAMPO RN - 07/28/2016 11:18 ROUTE DELIVERY SUPERVISOR Date : 06/17/2016 ROUTE DELIVERY SUPERVISOR 06/24/2016 ROUTE DELIVERY SUPERVISOR 07/07/2016 ROUTE DELIVERY SUPERVISOR 07/28/2016 ROUTE DELIVERY SUPERVISOR Location of INR sample : Other: [facility] CF Other: [facility] CF Lab Lab Type of Sample [...] changes,pt is having tooth pulled 08/31/16 at [facility] Oral Surgery will need INR checked that am scheduled.letter faxed to [facility] oral surgery to see what INR needs leon Recommend Recheck : One week Other: 07/07/16 Three weeks Two weeks Plan completed by : MARIA GUADALUPE BURGESS NB MELI CMAPO RN - 07/28/2016 11:18 ROUTE DELIVERY SUPERVISOR MELI CAMPO RN - 07/28/2016 11:18 ROUTE DELIVERY SUPERVISOR MELI CAMPON - 07/28/2016 11:18 ROUTE DELIVERY SUPERVISOR MELI CAMPO RN - 07/28/2016 11:18 ROUTE DELIVERY SUPERVISOR Anticoagulation Assessment / History Visit : Phone management Plan of Care Date : 01/29/2008 CDT Primary Physician Anticoagulation : TASHA HENRIQUEZ MD 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 - 07/28/2016 10:22 AM CST Results Notification From: MELI CAMPO RN ( Anticoagulation Nurse) To: Anticoagulation Nurse; Sent: 07/28/2016 10:22:57 ROUTE DELIVERY SUPERVISOR Show up: 07/28/2016 10:23:00 ROUTE DELIVERY SUPERVISOR Subject: Results Notification Results: Date Result Name Value Ref Range 07/28/2016 08:03 PT 34.6 second(s) (8.8 - 11.9) 07/28/2016 08:03 INR 3.1 (0.9 - 1.2) Source: [facility] POWERCHART Document Id: [id number] Electronically signed by Conversion, [facility] Trace Clerk [id number] at 12/05/2016 11:39 PM CDT documented in this encounter Plan of Treatment Upcoming Encounters Date Type Specialty Care Team Description 06/22/2022 Appointment Laboratory Medicine Rusty Vee M.D. [address] [place] [phone] 06/22/2022 Diagnostic Pulmonary Medicine Rusty Vee M.D. [address] [place] [phone] 06/22/2022 Diagnostic Pulmonary Medicine Rusty Vee M.D. [address] [place] [phone] 06/22/2022 Appointment Radiology Rusty Vee M.D. [address] [place] [phone] 06/23/2022 Clinical Communication Admitting/Central Scheduling 06/28/2022 Appointment Pulmonary Medicine Rusty Vee M.D. [address] [place] [phone] 06/28/2022 Appointment Pulmonary Medicine Rusty Vee M.D. [address] [place] [phone] documented as of this encounter Procedures Procedure Name Priority Date/Time Associated Comments Diagnosis PROTHROMBIN TIME Routine 07/28/2016 8:03 AM Resul ts for this (PT), P ROUTE DELIVERY SUPERVISOR procedure are i n the results section. documented in this encounter Results (ABNORMAL) PT (Prothrombin Time) with INR (07/28/2016 8:03 AM ROUTE DELIVERY SUPERVISOR) [facility] Method Time Signature Prothrombin 34.6 (H) [...] / Volume Laterality Blood 07/28/2016 8:03 AM ROUTE DELIVERY SUPERVISOR Tasha Henriquez M.D. LAB BLOOD ADD-ON Performing Organization Address City/State/ZIP Code Phon e Number POWERCHART documented in this encounter Visit Diagnoses Not on filedocumented in this encounter
--- OUTSIDE RECORDS SUMMARY | 2022-05-25 21:04 | XMS_ITS | Encounter Summary ---
:1975 Author Organization [facility] Address [address] [place] [address] Care Team Providers Name Role Phone Unavailable Primary Care Provider Unavailable Encounter Details Date Type Department Care Team Description 07/01/2016 - Hospital Encounter HX [facility] Roberto Vasquez, 09/07/2016 Gabby Social History Tobacco Use Types [...] at Date Recorded Female 05/03/2022 7:07 PM HYDRATOR OPERATOR documented as of this encounter Discharge Summaries Todd Piper, P.T. - 08/11/2016 5:29 PM CST DC Document Contains Addenda Addendum by TODD PIPER PT on August 11, 2016 17:30 HYDRATOR OPERATOR CLAIMS BASED OUTCOME REPORTING FUNCTIONAL LIMITATION: [...] PIPER PT On: 08/11/2016 05:30 PM Source: [facility] POWERCHART Document Id: [id number] ATOR OPERATOR documented in this encounter Medications at [...] as of this encounter Progress Notes Todd Piper P.T. 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 - 07/28/2016 5:06 PM CST elbow PT THERAPY DAILY VISIT NOTE REHAB SNAPSHOT ORDERS: EVALUATE AND TREAT FOR: distal humerus ORIF, left elbow CONTRAINDICATIONS OR SPECIAL INSTRUCTIONS: please work on elbow ROM, no lifting more than 5 pouds Visit #:[id number] Insurance: Medicare POC Date Range: 07/01/2016 - 08/12/2016 Onset Date: DOS: 05/09/2016, DOI: 05/08/2016 Provider: Roberto Carreon MD/Dr. Sems Provider follow up: 08/05/2016 PHYSICAL THERAPY DIAGNOSIS: Left elbow pain, weakness and decreased range of motion s/p distal humerus fracture with open reduction internal rotation This patient would benefit from skilled physical therapy to address the following impairments: pain,impaired joint mobility, weakness. 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 Total Visit Time: 26 minutes Playground Monitor Present NA Electronically Signed By: TODD PIPER PT On: 07/28/2016 05:21 PM Source: [facility] [employer] Document Id: [id number] ATOR OPERATOR Todd Piper P.T. 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 Total Visit Time: 26 minutes Playground Monitor Present NA Electronically Signed By: TODD PIPER PT On: 07/20/2016 05:05 PM Source: [employer] Document Id: [id number] ATOR OPERATOR Todd Piper, P.T. 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 Total Visit Time: 26 minutes Playground Monitor Present NA Electronically Signed By: TODD PIPER PT On: 07/14/2016 05:22 PM Modified by and Electronically Signed by: TODD PIPER PT On: 07/14/2016 05:22 PM Source: [employer] Document Id: [id number] ATOR OPERATOR Todd Piper, P.T. 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 Total Visit Time: 26 minutes Playground Monitor Present NA Electronically Signed By: TODD PIPER PT On: 07/13/2016 05:17 PM [facility]: [facility] Document Id: [id number] ATOR OPERATOR Todd Piper P.T. 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 Total Visit Time: 26 minutes Playground Monitor Present NA Electronically Signed By: TODD PIPER PT On: 07/06/2016 05:12 PM Source: [facility] POWERCHART Document Id: [id number] ATOR OPERATOR Todd Piper P.T. 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 Total Visit Time: 25 minutes Playground Monitor Present NA Electronically Signed By: TODD PIPER PT On: 07/05/2016 05:17 PM Source: [facility] POWERCHART Document Id: [id number] ATOR OPERATOR documented in this encounter H&P Notes Todd Piper PMichaelT. 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 Otherwise does ADLs independently. Has parents living in [place], has [place] in [place]. 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 Currently on 5# lifitng restriction, normally has [...] patients ability to: lift, dress, andwork as investment banking associate The patients history includes 3 personal factors [...] to treatment have been reviewed and the patient/manager progressive care has been instructed to contact this office if they have any questions or concerns. This plan of care has been discussed with the patient/manager progressive care and the patient/manager progressive care is in agreement. Frequency / Duration: Patient [...] wand exercises. TOTAL VISIT TIME: 50 minutes AEROSPACE MANAGER PRESENT NA MULTIDISCIPLINARY PATIENT / FAMILY EDUCATION [...] PIPER PT On: 07/01/2016 12:44 PM Source: [facility] POWERCHART Document Id: [id number] ATOR OPERATOR documented in this encounter Nursing Notes Todd Piper P.T. - 07/01/2016 12:44 PM CST POC Do Not File - Please Return PT Plan of Care - [facility] [place] - Rehabilitation Services To: Roberto Carreon MD Facility: [facility] Fax: Phone: [phone] Re: Hue Garvinl : 1975 Diagnoses: distal humerus ORIF, left [...] to treatment have been reviewed and the patient/manager progressive care has been instructed to contact this office if they have any questions or concerns. This plan of care has been discussed with the patient/manager progressive care and the patient/manager progressive care is in agreement. Frequency / Duration: Patient will be seen 2 session(s) a week for 6 week(s). I certify that the above rehabilitation services are required and authorized by me, and that the patient's plan will be reviewed at 6 weeks. Health Care Provider Signature: Date: Physician's Instructions: Do Not File - Please sign and return to: [facility] [place] [facility] [address] [place] [address] Tracking Only - Medicare? YES Electronically Signed By: TODD PIPER PT On: 07/01/2016 03:59 PM Modified by and Electronically Signed by: TODD PIPER PT On: 07/01/2016 03:59 PM Source: [employer] Document Id: [id number] ATOR OPERATOR documented in this encounter Miscellaneous Notes Miscellaneous - Conversion, Historical Provider Ser - 07/04/2016 7:14 AM HYDRATOR OPERATOR Coding Summary-Paper Based CODING DATE: 07/04/2016 FINAL RW [facility] STATUS: Still Patient/Expected to Rtn Oupt [facility] PAYOR: Medicare Advantage ADMIT DX: REASON FOR [...] FOX Date Saved: 07/04/2016 07:14 am Source: [employer] Document Id: [id number] documented in this encounter Plan of Treatment Upcoming Encounters Date Type Specialty Care Team Description 06/22/2022 Appointment Laboratory Medicine Rusty Vee M.D. [address] [place] [phone] 06/22/2022 Diagnostic Pulmonary Medicine Rusty Vee M.D. [address] [place] [phone] 06/22/2022 Diagnostic Pulmonary Medicine Rusty Vee M.D. [address] [place] [phone] 06/22/2022 Appointment Radiology Rusty Vee M.D. [address] [place] [phone] 06/23/2022 Clinical Communication Admitting/Central Scheduling 06/28/2022 Appointment Pulmonary Medicine Rusty Vee M.D. [address] [place] [phone] 06/28/2022 Appointment Pulmonary Medicine Rusty Vee M.D. [address] [place] [phone] documented as of this encounter Visit Diagnoses Not on filedocumented in this encounter
--- OUTSIDE RECORDS SUMMARY | 2022-05-25 21:04 | XMS_ITS | Encounter Summary ---
:1975 Author Organization [facility] Address [address] [place] [address] Care Team Providers Name Role Phone Sridhar [...] at Date Recorded Female 05/03/2022 7:07 PM PLAYGROUND EQUIPMENT ERECTOR documented as of this encounter Medications at [...] Laboratory Medicine Rusty Vee M.D. [address] [place] [phone] 06/22/2022 Diagnostic Pulmonary Medicine Rusty Vee M.D. [address] [place] [phone] 06/22/2022 Diagnostic Pulmonary Medicine Rusty Vee M.D. [address] [place] [phone] 06/22/2022 Appointment Radiology Rusty Vee M.D. [address] [place] [phone] 06/23/2022 Clinical Communication Admitting/Central Scheduling 06/28/2022 Appointment Pulmonary Medicine Rusty Vee M.D. [address] [place] [phone] 06/28/2022 Appointment Pulmonary Medicine Rusty Vee M.D. [address] [place] [phone] documented as of this encounter Visit Diagnoses Not on filedocumented in this encounter Care Teams German Tutor Relationship Specialty Start Date End Date Sridhar Garibay M.D. PCP - General 12/08/16 05/23/18 [place] [phone] documented as of this encounter
--- OUTSIDE RECORDS SUMMARY | 2022-05-25 21:04 | XMS_ITS | Encounter Summary ---
:1975 Author Organization [facility] Address [address] [place] [address] Care Team Providers Name Role Phone Unavailable Primary Care Provider Unavailable Encounter Details Date Type Department Care Team Description 06/30/2016 Hospital Encounter HX [facility] Stoney Galvan M.D. [address] [place], [place] [address] (Wo rk) Social History [...] Date Recorded Female 05/03/2022 7:07 PM HOME DAY CARE PROVIDER documented as of this encounter Last Filed Vital Signs Vital Sign Reading Time Taken Comments Blood Pressure 104/53 06/30/2016 4:14 PM HOME DAY CARE PROVIDER Pulse 72 06/30/2016 4:14 PM HOME DAY CARE PROVIDER Temperature - - Respiratory Rate 16 06/30/2016 4:14 PM HOME DAY CARE PROVIDER Oxygen Saturation - - Inhaled Oxygen Concentration - - Weight 74.3 kg (163 lb 12.8 oz) 06/30/2016 4:14 PM HOME DAY CARE PROVIDER Height 146 cm (4' 9.48) 06/30/2016 4:14 PM HOME DAY CARE PROVIDER Body Mass Index 34.86 06/30/2016 4:14 PM HOME DAY CARE PROVIDER documented in this encounter Medications at Time [...] 2.5 mg tablet tablet See Instructions, 5mg Jose F Mascorro & Thurs, 2.5mg all other days or as directed per INR Clinic as of 09/29/2016, 30 tab(s) documented as of this encounter H&P Notes Marie Galvan M.D. - 06/30/2016 7:31 PM CST [...] kids. Lives independently in apartment. Works at [employer]. Nonsmoker. Never been sexually active. MEDICATIONS acetaminophen [...] 2.5 mg oral tablet, See Instructions, 5mg SunJose F & Thurs, 2.5mg all [...] activity. Ordered: OV Est Pt Prev Svc [id number] 2. Trisomy 21 Doing very well living independently. Ordered: OV Est Pt Prev Svc 395 3. Tricuspid valve regurgitation NOS Stable Ordered: OV Est Pt Prev Svc 4. Mixed Hyperlipidemia Labs pending- no meds at this time. Ordered: OV Est Pt Prev Svc 5. Impaired Fasting Glucose Labs pending. 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 Ordered: OV Est Pt Prev Svc 395 Electronically Signed By: MARIE GALVAN MD On: 07/05/2016 09:11 PM Source: [facility] POWERCHART Document Id: [id number] DAY CARE PROVIDER documented in this encounter Miscellaneous Notes Miscellaneous - Marie Galvan M.D. - 07/05/2016 9:11 PM CST Ambulatory Discharge Medication List [address] [id number] Visit Information Name: DORITA MEDINA [facility] Number: [id number] Current Date: 07/05/2016 21:11:43 Attending Provider: MARIE GALVAN MD Primary Care Provider: TASHA HENRIQUEZ [...] 2.5 mg oral tablet) See Instructions 5mg Jose F Mascorro & Keshav, 2.5mg all other days or as directed [...] in case of emergency. Electronically Signed By: MARIE GALVAN MD Signed On:05-JUL-2016 21:11:37 Additional Information: Source: [facility] POWERUIEvolution Document Id: [id number] DAY CARE PROVIDER Miscellaneous - Marie Galvan M.D. - 07/05/2016 9:11 PM CST Ambulatory Patient Summary [address] [id number] Visit Information Name: DORITA MEDINA [facility] Number: [id number] Current Date: 07/05/2016 21:11:43 Physicians Attending Provider: MARIE GALVAN MD Primary Care Provider: TASHA HENRIQUEZ [...] in case of emergency. Electronically Signed By: MARIE GALVAN MD Signed On:05-JUL-2016 21:11:37 Your Allergies [...] weight loss) Irregular Menstrual Cycle Active 07/28/2010 03/29/14 Irregular menses Gallstone Without Obstruction Active Trisomy 21 Active Your Upcoming Appointments Date Time Location Provider 07/06/2016 16:30 [facility] Estefani Rasmussen PT 07/07/2016 09:00 [facility] Offsite 07/13/2016 16:30 Estefani Grace PT 07/14/2016 16:30 [facility] Estefani Rasmussen PT Attention: Contact your local [...] if you dont have one. Go to [email or web address] and click on Create Your Account. Then, follow the directions to complete the online form. Youll be asked for your [facility] number which you can find at the top of this document. Your Goals/Additional instructions: Source: [facility] POWERCHART Document Id: [id number] DAY CARE PROVIDER Miscellaneous - Hussein Pineda, L.P.N. - 06/30/2016 4:14 PM CST Adult Wood Heel Flap Rubber Intake/History Adult Wood Heel Flap Rubber Intake/History Entered On: 06/30/2016 16:18 HOME DAY CARE PROVIDER Performed On: 06/30/2016 16:14 HOME DAY CARE PROVIDER by HUSSEIN PINEDA EXPLORATION GEOLOGIST Intake Chief Complaint : Yearly physical. Ambulatory [...] kg/m2 HUSSEIN PINEDA LPN - 06/30/2016 16:14 HOME DAY CARE PROVIDER General Info Information Given By : Patient, Mother Preferred Communication Mode : Verbal Languages : Romanian Is Patient Female and 13-50 no hysterectomy : Yes Status : Patient denies Are you ? : No HUSSEIN PINEDA LPN - 06/30/2016 16:14 HOME DAY CARE PROVIDER Subjective Pain Symptoms : No HUSSEIN PINEDA LPN - 06/30/2016 16:14 HOME DAY CARE PROVIDER Dependent Habits Exposure to Tobacco Smoke : Other: never smoker Smoking Status : Never smoker Tobacco 2A : No Tobacco Use/Currently Using : No Tobacco Use/Last 30 Days : No Tobacco Use/Last 12 months : No Alcohol Use : No HUSSEIN PINEDA LPN - 06/30/2016 16:14 HOME DAY CARE PROVIDER Caffeine Use Grid Caffeine Use : Current Type : Soft drinks Frequency : Occasionally Amount : pop HUSSEIN PINEDA LPN - 06/30/2016 16:14 HOME DAY CARE PROVIDER Recreational Drug Use Grid Drug Use : None HUSSEIN PINEDA LPN - 06/30/2016 16:14 HOME DAY CARE PROVIDER Source: [facility] [employer] Document Id: [id number] HOME DAY CARE PROVIDER!46 DAY CARE PROVIDER documented in this encounter Plan of Treatment Upcoming Encounters Date Type Specialty Care Team Description 06/22/2022 Appointment Laboratory Medicine Rusty Vee M.D. [address] [place] [phone] 06/22/2022 Diagnostic Pulmonary Medicine Rusty Vee M.D. [address] [place] [phone] 06/22/2022 Diagnostic Pulmonary Medicine Rusty Vee M.D. [address] [place] [phone] 06/22/2022 Appointment Radiology Rusty Vee M.D. [address] [place] [phone] 06/23/2022 Clinical Communication Admitting/Central Scheduling 06/28/2022 Appointment Pulmonary Medicine Rusty Vee M.D. [address] [place] [phone] 06/28/2022 Appointment Pulmonary Medicine Rusty Vee M.D. [address] [place] [phone] documented as of this encounter Visit Diagnoses Not on filedocumented in this encounter
--- OUTSIDE RECORDS SUMMARY | 2022-05-25 21:04 | XMS_ITS | Encounter Summary ---
:1975 Author Organization [facility] Address [address] [place] [address] Care Team Providers Name Role Phone Tasha Henriquez M.D. Primary Care Provider Encounter Details Date Type Department Care Team Description 12/22/2016 Hospital Encounter [facility] Marsha Henriquez M.D. [address] [place], [place] [address] (Wo rk) Social History [...] More than 4 times per year 05/04/2022 jewish services? Do you belong to any clubs [...] at Date Recorded Female 05/03/2022 7:07 PM BOOKKEEPING CLERK documented as of this encounter Last Filed [...] Notes Miscellaneous - Wali Mcclellan, R.N. - 12/22/2016 11:50 AM CDT Anticoagulation Patient [...] completed by : WALI Tracy RN - 12/22/2016 11:50 CDT WLAI MCCLELLAN RN - 12/22/2016 11:50 CDT WALI [...] Date : 04/17/2014 CDT 04/24/2014 CDT 05/01/2014 BOOKKEEPING CLERK 05/15/2014 BOOKKEEPING CLERK Location of INR sample : Lab [...] will trynoted dose called to mom Fabiola [phone] called to Fabiola/no changes Called to mother/Fabiola, not awareof any changes Recommend Recheck : One week One week Two weeks Two weeks Plan completed by : WALI CHOI RN - 12/22/2016 11:50 CDT WALI MCCLELLAN RN - 12/22/2016 11:50 CDT WALI MCCLELLAN RN - 12/22/2016 11:50 CDT WALI MCCLELLAN RN - 12/22/2016 11:50 CDT Date : 06/03/2014 BOOKKEEPING CLERK 06/05/2014 BOOKKEEPING CLERK 06/10/2014 BOOKKEEPING CLERK 06/11/2014 BOOKKEEPING CLERK Location of INR sample : Lab [...] Called motherFabiola. Hue will be staying in [place] 2wks post-surgery & have INR drawn there. [...] lovenox tomorrow AM as ordered. INR in [place] for next several weeks as pt will be recovering there. Recommend Recheck : Other: depending on Dr. Henriquez's preop. Other: 06/18 Other: 06/13/14 Plan completed by : WALI TYLER RN - 12/22/2016 11:50 CDWALI OGLESBY RN - 12/22/2016 11:50 PATRICIAT WALI MCCLELLAN RN - 12/22/2016 11:50 WALI GALINDO RN - 12/22/2016 11:50 CDT Date : 06/14/2014 BOOKKEEPING CLERK 06/14/2014 BOOKKEEPING CLERK 06/16/2014 BOOKKEEPING CLERK 06/23/2014 BOOKKEEPING CLERK Location of INR sample : Clinic [...] Warfarin Dose : 20 20 Comment : [place] lab called with INR result from 06/13, reported they left a message with Dr. Henriquez and hadn't heard back, spoke with mother, Fabiola, and gave doses, continue Lovenox and repeat INR 06/16, message left with INR clinic in to contact CF Please contact [place] lab on 06/16 for result and may call Fabiola at [phone] with instructions call to Fabiola/will stop Lovenox [...] by : WALI Steven LM RN - 12/22/2016 11:50 CDT WALI MCCLELLAN RN - 12/22/2016 11:50 CDT WALI MCCLELLAN RN - 12/22/2016 11:50 CDT WALI MCCLELLAN RN - 12/22/2016 11:50 CDT Date : 07/10/2014 BOOKKEEPING CLERK 07/17/2014 BOOKKEEPING CLERK 07/31/2014 BOOKKEEPING CLERK 09/11/2014 CDT Location of INR sample [...] Plan completed by : darya BoyceK WALI Perez RN - 12/22/2016 11:50 CDT WALI MCCLELLAN [...] 11:50 CDT Date : 04/09/2015 CDT 05/07/2015 BOOKKEEPING CLERK 06/04/2015 BOOKKEEPING CLERK 07/02/2015 BOOKKEEPING CLERK Location of INR sample : Lab [...] 5 weeks Plan completed by : WALI Nelsno RN - 12/22/2016 11:50 CDT WALI MCCLELLAN RN - 12/22/2016 11:50 CDT WALI MCCLELLAN RN - 12/22/2016 11:50 CDT WALI MCCLELLAN RN - 12/22/2016 11:50 CDT Date : 08/06/2015 BOOKKEEPING CLERK 09/17/2015 CDT 10/29/2015 CDT 11/12/2015 CDT Location [...] One month Plan completed by : darya LERMA ly WALI ESPINOSA RN - 12/22/2016 11:50 CDT WALI MCCLELLAN [...] : Pt being discharged on Bactrim. Will product picker rx for 2 mg tabs On bactrim 2 days left, has f/u [place] Monday. Pt mother states plan to return to [facility] on 03/06. next f/u will be in [facility]. 2mg TuWTh Rev'd with Jelly/Pharmacist,called [...] pt will be staying with sister in [facility] next week she will have INR drawn [place] again called to Fabiola/pt to do next INR at on a ./no changes called to Fabiola/no changes called to Fabiola/Mom,no changes/missed doses Recommend Recheck : Other: 03/16/16 Other: 03/31/16(2 weeks) One month Two weeks Plan completed by : JENIFER PRECIADO ly WALI GUTIERREZ RN - 12/22/2016 11:50 CDT WALI MCCLELLAN RN - 12/22/2016 11:50 WALI GALINDO RN - 12/22/2016 11:50 CDWALI OGLESBY RN - 12/22/2016 11:50 CDT Date : 05/11/2016 BOOKKEEPING CLERK 05/12/2016 BOOKKEEPING CLERK 05/17/2016 BOOKKEEPING CLERK 05/24/2016 BOOKKEEPING CLERK Location of INR sample : Other: Drawn [place] Other: [place] Other: [place] Type of Sample : INR Result : 1.6 2.4 1.8 Warfarin Dose : 2.5mg daily 2.5mg daily 5mg 05/24 then 2.5mg daily Total Weekly Warfarin Dose : 17.5 Comment : Per Mom/Fabiola, pt disch from [facility] today, fell & fx left [...] - 12/22/2016 11:50 CDT Date : 06/01/2016 BOOKKEEPING CLERK 06/06/2016 BOOKKEEPING CLERK 06/10/2016 BOOKKEEPING CLERK 06/13/2016 BOOKKEEPING CLERK Location of INR sample : Other: [place] Other: [facility] Other[facility] Type of Sample : INR Result : 1.6 1.4 1.6 2.2 Warfarin Dose : 5mg 8, 2.5mg 12/, 12/, 12/ 5mg 12/ & 12/13,2.5mg /14 & 12/15 5mg12/16, 06/11, 2.5mg 18 2.5mg Mon,Wed,fri and [...] - 12/22/2016 11:50 CDT Date : 06/17/2016 BOOKKEEPING CLERK 06/24/2016 BOOKKEEPING CLERK 07/07/2016 BOOKKEEPING CLERK 07/28/2016 BOOKKEEPING CLERK Location of INR sample : Other: [facility] CF Other: [facility] Lab Lab Type of Sample : Venous [...] changes,pt is having tooth pulled 08/31/16 at [facility] Oral Surgery will need INR checked that am scheduled.letter faxed to [facility] oral surgery to see what INR needs leon Recommend Recheck : One week Other: 07/07/16 Three weeks Two weeks Plan completed by : WALI GIBBS RN - 12/22/2016 11:50 CDT WALI MCCLELLAN RN - 12/22/2016 11:50 CDT WALI MCCLELLAN RN - 12/22/2016 11:50 CDT WALI MCCLELLAN RN - 12/22/2016 11:50 CDT Date : 08/11/2016 BOOKKEEPING CLERK 08/31/2016 BOOKKEEPING CLERK 09/29/2016 CDT 10/27/2016 CDT Location of INR [...] : called to mom/Fabiola,no changes,having tooth pulled 3 INR to be below 2.5-3.0 per oral [...] to Mom/Fabiola/states has appt on 11/01 in [place]/may need surgery on non healing arm fx/surgery tentatively scheduled for 12/21/ calendar to check [employer] for pre-op instructions and schedule next INR Per Michelle, arm is healing, no surg at this time, may have in Feb, she will let us know Called to Castro/Fabiola, no changes Recommend Recheck : Other: 12/22/16 [...] MCCLELLAN RN - 12/22/2016 11:50 CDT Source: [facility] [employer] Document Id: [id number] CDT!851 Miscellaneous - Wali Mcclellan R.N. - 12/22/2016 9:39 AM CDT Results Notification Document Contains Addenda Addendum by WALI MCCLELLAN RN on December 22, 2016 11:55:59 CDT Orders called to Csatro/Fabiola. From: WALI MCCLELLAN RN ( Anticoagulation Nurse) To: Anticoagulation Nurse; Sent: 12/22/2016 09:39:27 CDT Show up: 12/22/2016 09:40:00 CDT Subject: Results Notification Results: Date Result Name Value Ref Range 12/22/2016 08:00 PT 33.3 second(s) (8.8 - 11.9) 12/22/2016 08:00 INR 3.0 (0.9 - 1.2) Source: [facility] [employer] SpineCHART Document Id: [id number] Electronically signed by [facility] Agricultural Loan Officer [id number] at 12/29/2016 6:14 AM CDT documented in this encounter Plan of Treatment Upcoming Encounters Date Type Specialty Care Team Description 06/22/2022 Appointment Laboratory Medicine Rusty Vee M.D. [address] [place] [phone] 06/22/2022 Diagnostic Pulmonary Medicine Rusty Vee M.D. [address] [place] [phone] 06/22/2022 Diagnostic Pulmonary Medicine Rusty Vee M.D. [address] [place] [phone] 06/22/2022 Appointment Radiology Rusty Vee M.D. [address] [place] [phone] 06/23/2022 Clinical Communication Admitting/Central Scheduling 06/28/2022 Appointment Pulmonary Medicine Rusty Vee M.D. [address] [place] [phone] 06/28/2022 Appointment Pulmonary Medicine Rusty Vee M.D. [address] [place] [phone] documented as of this encounter Procedures Procedure Name Priority Date/Time Associated Comments Diagnosis PROTHROMBIN TIME Routine 12/22/2016 8:00 AM Resul ts for this (PT), P CDT procedure are i n the results section. documented in this encounter Results (ABNORMAL) PT (Prothrombin Time) with INR (12/22/2016 8:00 AM CDT) [facility] gist Method Time Signature Prothrombin 33.3 (H) 8.8 [...] on filedocumented in this encounter Care Teams Snow Groomer Relationship Specialty Start Date End Date Tasha Henriquez M.D. PCP - General 12/08/16 05/23/18 [place] [phone] documented as of this encounter
--- OUTSIDE RECORDS SUMMARY | 2022-05-25 21:04 | XMS_ITS | Encounter Summary ---
:1975 Author Organization [facility] Address [address] [place] [address] Care Team Providers Name Role Phone Unavailable Primary Care Provider Unavailable Encounter Details Date Type Department Care Team Description 07/01/2016 Hospital Encounter HX [facility] Stoney Lance M.D. [address] [place], [place] [address] (Wo rk) Social History [...] at Date Recorded Female 05/03/2022 7:07 PM CRUTCH MAKER documented as of this encounter Last Filed Vital Signs Vital Sign Reading Time Taken Comments Blood Pressure - - Pulse - - Temperature - - Respiratory Rate - - Oxygen Saturation - - Inhaled Oxygen Concentration - - Weight - - Height 146 cm (4' 9.48) 07/01/2016 8:59 AM CRUTCH MAKER Body Mass Index - - documented in [...] mg tablet tablet See Instructions, 5mg Sun, Jose F & Thurs, 2.5mg all other days or as directed per INR Clinic as of 09/29/2016, 30 tab(s) documented as of this encounter Plan of Treatment Upcoming Encounters Date Type Specialty Care Team Description 06/22/2022 Appointment Laboratory Medicine Rusty Vee M.D. [address] [place] [phone] 06/22/2022 Diagnostic Pulmonary Medicine Rusty Vee M.D. [address] [place] [phone] 06/22/2022 Diagnostic Pulmonary Medicine Rusty Vee M.D. [address] [place] [phone] 06/22/2022 Appointment Radiology Rusty Vee M.D. [address] [place] [phone] 06/23/2022 Clinical Communication Admitting/Central Scheduling 06/28/2022 Appointment Pulmonary Rusty Mattson M.D. [address] [place] [phone] 06/28/2022 Appointment Pulmonary Medicine Rusty Vee M.D. [address] [place] [phone] documented as of this encounter Procedures Procedure Name Priority Date/Time Associated Comments Diagnosis LIPID PANEL, S Routine 07/01/2016 9:05 AM Results for this CRUTCH MAKER procedure are i n the results section. THYROID-STIMULATING Routine 07/01/2016 9:05 AM Re sults for this HORMONE-SENSITIVE CRUTCH MAKER procedure are in (S-TSH) the results section. HEMOGLOBIN A1C, B Routine 07/01/2016 9:05 AM Resu lts for this CRUTCH MAKER procedure are i n the results section. GLUCOSE, FASTING, S/P Routine 07/01/2016 9:05 AM Results for this CRUTCH MAKER procedure are i n the results section. COMPREHENSIVE Routine 07/01/2016 9:05 AM Results for this METABOLIC PANEL, S/P CRUTCH MAKER procedu re are in the results section. documented in this encounter Results (ABNORMAL) Thyroid-Stimulating Hormone-Sensitive (s-TSH) (07/01/2016 9:05 AM CRUTCH MAKER) P athologist Signature TSH 6.13 (H) 0.27 [...] / Volume Laterality Blood 07/01/2016 9:05 AM CRUTCH MAKER Marie Lance M.D. LAB BLOOD ADD-ON Performing Organization Address City/State/ZIP Code Phon e Number POWERCHART (ABNORMAL) CMP (Comprehensive Metabolic Panel) (07/01/2016 9:05 AM CRUTCH MAKER) Patholo gist Method Time Signature Alanine 14 [...] POWERCHART MMOLL HXeGFR (MDRD) >60 >=60 POWERCHART [id number] 2 eGFR Black/ >60 >=60 POWERCHART Belgian [id number] 2 Bilirubin, Total, S 0.3 <=1.2 POWERCHART MGDL Total Protein, S 7.0 6.3 - 7.9 POWERCHART GDL Glucose 94 70 - 139 POWERCHART MGDL Specimen (Source) Anatomical Collection Method Collection Time Re ceived Time Location / / Volume Laterality Blood 07/01/2016 9:05 AM CRUTCH MAKER Marie Lance M.D. LAB BLOOD ADD-ON Performing Organization Address City/State/ZIP Code Phon e Number POWERCHART Hemoglobin A1c (07/01/2016 9:05 AM CRUTCH MAKER) P athologist Signature Hemoglobin A1c, 4.8 <=5.6 A1C POWERCHART B Specimen (Source) Anatomical Collection Method Collection Time Re ceived Time Location / / Volume Laterality Blood 07/01/2016 9:05 AM CRUTCH MAKER Marie Lance M.D. LAB BLOOD ADD-ON Performing Organization Address City/State/ZIP Code Phon e Number POWERCHART Glucose, Fasting (07/01/2016 9:05 AM CRUTCH MAKER) P athologist Signature Glucose, 94 70 - 99 POWERCHART Fasting, S MGDL Specimen (Source) Anatomical Collection Method Collection Time Re ceived Time Location / / Volume Laterality Blood 07/01/2016 9:05 AM CRUTCH MAKER Marie Lance M.D. LAB BLOOD NON ADD-ON Performing Organization Address City/State/ZIP Code Phon e Number POWERCHART (ABNORMAL) Lipid Panel (07/01/2016 9:05 AM CRUTCH MAKER) P athologist Signature Cholesterol, 187 <=199 MGDL [...] HDL 49 (L) >=50 MGDL POWERCHART Comment: 2013 National Lipid Association recommen dations for HDL-C [...] esting for FH and FDB [facility]: FH/ADH Genetic Reflex Haas el (test ADHP). Acquired (non-genetic) causes of markedly increased LDL cholesterol include cholestatic liver disease due to the presence of LpX. If a genetic form of hypercholesterolemia is suspected, family studies including biochemical testing fo r lipids (total cholesterol,triglycerides, LDL cholesterol and HDL cholesterol) are recommended. ??Please contact the laboratory at or the on-line test catalog at [employer] for information about how to order these cipriano ts or to speak with a genetic counselor. Further interpretation would require clinical information. Total Cholesterol/HDL Ratio 4 PO WERCHART Specimen (Source) Anatomical Collection Method Collection Time Re ceived Time Location / / Volume Laterality Blood 07/01/2016 9:05 AM CRUTCH MAKER Marie Lance M.D. LAB BLOOD ADD-ON Performing Organization Address City/State/ZIP Code Phon e Number POWERCHART documented in this encounter Visit Diagnoses Not on filedocumented in this encounter
--- OUTSIDE RECORDS SUMMARY | 2022-05-25 21:04 | XMS_ITS | Encounter Summary ---
:1975 Author Organization [facility] Address [address] [place] [address] Care Team Providers Name Role Phone Unavailable Primary Care Provider Unavailable Encounter Details Date Type Department Care Team Description 09/29/2016 Hospital Encounter HX [facility] Marsha Henriquez M.D. 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 - 09/29/2016 9:57 AM CDT Anticoagulation Patient [...] completed by : KHADAR Manning RN - 09/29/2016 9:57 CDT KHADAR BANDA [...] lackey LM /pharmacy KHADAR BANDA RN - 09/29/2016 9:57 CDT KHADAR BANDA RN - 09/29/2016 9:57 CDT KHADAR BANDA RN - 09/29/2016 9:57 CDT KHADAR BANDA RN - 09/29/2016 9:57 CDT Date : 04/17/2014 CDT 04/24/2014 CDT 05/01/2014 TANK PROCESSOR 05/15/2014 TANK PROCESSOR Location of INR sample : Lab Lab [...] will trynoted dose called to mom Fabiola [phone] called to Fabiola/no changes Called to mother/Fabiola, not awareof any changes Recommend Recheck : One week One week Two weeks Two weeks Plan completed by : KHADAR HACKETT RN - 09/29/2016 9:57 CDT KHADAR BANDA RN - 09/29/2016 9:57 CDT KHADAR BANDA RN - 09/29/2016 9:57 CDT KHADAR BANDA RN - 09/29/2016 9:57 CDT Date : 06/03/2014 TANK PROCESSOR 06/05/2014 TANK PROCESSOR 06/10/2014 TANK PROCESSOR 06/11/2014 TANK PROCESSOR Location of INR sample : Lab Type [...] Called motherFabiola. Hue will be staying in [place] 2wks post-surgery & have INR drawn there. [...] lovenox tomorrow AM as ordered. INR in [place] for next several weeks as pt will be recovering there. Recommend Recheck : Other: depending on Dr. Henriquez's preop. Other: 06/18 Other: 06/13/14 Plan completed by : KHADAR SANDERS RN - 09/29/2016 9:57 KHADAR HILL RN - 09/29/2016 9:57 PATRICIAT KHADAR BANDA RN - 09/29/2016 9:57 PATRICIAT KHADAR BANDA RN - 09/29/2016 9:57 CDT Date : 06/14/2014 TANK PROCESSOR 06/14/2014 TANK PROCESSOR 06/16/2014 TANK PROCESSOR 06/23/2014 TANK PROCESSOR Location of INR sample : Clinic Lab Lab Type of Sample : Venous Venous INR Result : 1.3 on 06/13 2.4 faxed from lab 2.0 Warfarin Dose : (pt took 2.5mg 06/13) 5mg Sat and 5mg Sun (06/14 and 06/15) 5mg Mon and 2.5mg all other days 5mg Mon and 2.5mg all other days Total Weekly Warfarin Dose : 20 20 Comment : [place] lab called with INR result from 06/13, reported they left a message with Dr. Henriquez and hadn't heard back, spoke with mother, Fabiola, and gave doses, continue Lovenox and repeat INR 06/16, message left with INR clinic in to contact CF Please contact [place] lab on 06/16 for result and may call Fabiola at [phone] with instructions call to Fabiola/will stop Lovenox [...] - 09/29/2016 9:57 CDT Date : 07/10/2014 TANK PROCESSOR 07/17/2014 TANK PROCESSOR 07/31/2014 TANK PROCESSOR 09/11/2014 CDT Location of INR sample : [...] is she is 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 [employer]/no bleeding/consult with Quintin/Pharmacy and called Mom with [...] weeks Three weeks Plan completed by : JENIFER JM JM KHADAR CAICEDO RN - 09/29/2016 9:57 CDT KHADAR BANDA RN - 09/29/2016 9:57 CDT KHADAR BANDA RN - 09/29/2016 9:57 CDT KHADAR BANDA RN - 09/29/2016 9:57 CDT Date : 04/09/2015 CDT 05/07/2015 TANK PROCESSOR 06/04/2015 TANK PROCESSOR 07/02/2015 TANK PROCESSOR Location of INR sample : Lab Lab [...] - 09/29/2016 9:57 CDT Date : 08/06/2015 TANK PROCESSOR 09/17/2015 CDT 10/29/2015 CDT 11/12/2015 CDT Location [...] month One month Plan completed by : ly JM ly JM KHADAR BANDA RN - 09/29/2016 9:57 CDT KHADAR BANDA RN - 09/29/2016 9:57 CDT KHADAR BANDA RN - 09/29/2016 9:57 CDT KHADAR BANDA RN - 09/29/2016 9:57 CDT Date : 02/19/2016 CDT 02/20/2016 CDT 02/21/2016 CDT 02/22/2016 CDT Location of INR sample : [facility] Type of Sample : Venous Venous [...] Eliseo Quezada, ReaD. KHADAR BANDA RN - 09/29/2016 9:57 CDT KHADAR BANDA RN - 09/29/2016 9:57 CDT KHADAR BANDA RN - 09/29/2016 9:57 CDT KAHDAR BANDA RN - 09/29/2016 9:57 CDT Date : 02/23/2016 CDT 02/24/2016 CDT 02/25/2016 CDT 02/26/2016 CDT Location of INR sample : [facility] Type of Sample : [...] Eliseo Quezada, PharmD. KHADAR BANDA RN - 09/29/2016 [...] Pt being discharged on Bactrim. Will flower picker rx for 2 mg tabs On bactrim 2 days left, has f/u in [place] on Monday. Pt mother states plan to return to [facility] on 03/06. next f/u will be in [facility]. 2mg TuWTh Rev'd with Jelly/Pharmacist,called to [...] completed by : KHADAR Diana RN, RN L RN - 09/29/2016 9:57 CDT KHADAR [...] pt will be staying with sister in [facility] next week she will have INR [...] - 09/29/2016 9:57 CDT Date : 05/11/2016 TANK PROCESSOR 05/12/2016 TANK PROCESSOR 05/17/2016 TANK PROCESSOR 05/24/2016 TANK PROCESSOR Location of INR sample : Other: Drawn in [place] Other: [place] Other: [place] Type of Sample : INR Result : 1.6 2.4 1.8 Warfarin Dose : 2.5mg daily 2.5mg daily 5mg 05/24 then 2.5mg daily Total Weekly Warfarin Dose : 17.5 Comment : Per Mom/Fabiola, pt disch from [facility] today, fell & fx left [...] - 09/29/2016 9:57 CDT Date : 06/01/2016 TANK PROCESSOR 06/06/2016 TANK PROCESSOR 06/10/2016 TANK PROCESSOR 06/13/2016 TANK PROCESSOR Location of INR sample : Other: [place] Other: [facility] Other: [facility] Type of Sample : INR Result : [...] with Quintin/Pharmacy/called to Mom, Fabiola rev'd with Prasad/Benitoramcist,called to mom Recommend Recheck : Other: 06/06/2016 Other: 06/10/16 Three days Other: 06/17/16 Plan completed by : KHADAR Vargas RN - 09/29/2016 9:57 CDT KHADAR BANDA RN - 09/29/2016 9:57 CDT KHADAR BANDA RN - 09/29/2016 9:57 CDT KHADAR BANDA RN - 09/29/2016 9:57 CDT Date : 06/17/2016 TANK PROCESSOR 06/24/2016 TANK PROCESSOR 07/07/2016 TANK PROCESSOR 07/28/2016 TANK PROCESSOR Location of INR sample : Other: [facility] CF Other: [facility] CF Lab Lab Type of [...] changes,pt is having tooth pulled 08/31/16 at [facility] Oral Surgery will need INR checked that am scheduled.letter faxed to [facility] oral surgery to see what INR needs leon Recommend Recheck : One week Other: 07/07/16 Three weeks Two weeks Plan completed by : KHADAR VIRK RN - 09/29/2016 9:57 CDT KHADAR BANDA RN - 09/29/2016 9:57 CDT KHADAR BANDA RN - 09/29/2016 9:57 CDT KHADAR BANDA RN - 09/29/2016 9:57 CDT Date : 08/11/2016 TANK PROCESSOR 08/31/2016 TANK PROCESSOR 09/29/2016 CDT Location of INR sample : [...] month Plan completed by : KHADAR Rodriguez RN [...] BANDA RN - 09/29/2016 9:57 CDT Source: [facility] [employer] Document Id: [id number] CDT!824 Miscellaneous - Khadar Banda R.N. - 09/29/2016 9:46 AM CDT Results Notification From: KHADAR BANDA RN ( Anticoagulation Nurse) To: Anticoagulation Nurse; Sent: 09/29/2016 09:46:20 CDT Show up: 09/29/2016 09:47:00 CDT Subject: Results Notification Results: Date Result Name Value Ref Range 09/29/2016 08:00 PT 26.4 second(s) (8.8 - 11.9) 09/29/2016 08:00 INR 2.4 (0.9 - 1.2) Source: [facility] POWERCHART Document Id: [id number] documented in this encounter Plan of Treatment Upcoming Encounters Date Type Specialty Care Team Description 06/22/2022 Appointment Laboratory Medicine Rusty Vee M.D. [address] [place] [phone] 06/22/2022 Diagnostic Pulmonary Medicine Rusty Vee M.D. [address] [place] [phone] 06/22/2022 Diagnostic Pulmonary Medicine Rusty Vee M.D. [address] [place] [phone] 06/22/2022 Appointment Radiology Rusty Vee M.D. [address] [place] [phone] 06/23/2022 Clinical Communication Admitting/Central Scheduling 06/28/2022 Appointment Pulmonary Medicine Rusty Vee M.D. [address] [place] [phone] 06/28/2022 Appointment Pulmonary Rusty Mattson M.D. [address] [place] [phone] documented as of this encounter Procedures Procedure Name Priority Date/Time Associated Comments Diagnosis PROTHROMBIN TIME Routine 09/29/2016 8:00 AM Resul ts for this (PT), P CDT procedure are i n the results section. documented in this encounter Results (ABNORMAL) PT (Prothrombin Time) with INR (09/29/2016 8:00 AM CDT) [facility] Method Time Signature Prothrombin 26.4 (H) [...]
--- OUTSIDE RECORDS SUMMARY | 2022-05-25 21:04 | XMS_ITS | Encounter Summary ---
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 - 06/29/2016 10:19 AM CST Pt came in with her father to evaluation. They wished to be seen in [place] at the [facility]. This was set up for them today. Order faxed to [place]. No evaluation performed today. Electronically Signed By: ROXANA CANNON DPT On: 06/29/2016 10:19 AM [facility] POWERFlayr Document Id: [id number] LE MACHINE OPERATOR documented in this encounter Plan of Treatment Upcoming Encounters Date Type Specialty Care Team Description 06/22/2022 Appointment Laboratory Medicine Rusty Vee M.D. [address] [place] [phone] 06/22/2022 Diagnostic Pulmonary Medicine Rusty Vee M.D. [address] [place] [phone] 06/22/2022 Diagnostic Pulmonary Medicine Rusty Vee M.D. [address] [place] [phone] 06/22/2022 Appointment Radiology Rusty Vee M.D. [address] [place] [phone] 06/23/2022 Clinical Communication Admitting/Central Scheduling 06/28/2022 Appointment Pulmonary Medicine Rusty Vee M.D. [address] [place] [phone] 06/28/2022 Appointment Pulmonary Medicine Rusty Vee M.D. [address] [place] [phone] documented as of this encounter Visit Diagnoses Not on filedocumented in this encounter
--- OUTSIDE RECORDS SUMMARY | 2022-05-25 21:04 | XMS_ITS | Encounter Summary ---
:1975 Author Organization [facility] Address [address] [place] [address] Care Team Providers Name Role Phone Sridhar [...] More than 4 times per year 05/04/2022 episcopal services? Do you belong to any clubs [...] Date Recorded Female 05/03/2022 7:07 PM QUALITY ANALYST documented as of this encounter Medications [...] Laboratory Medicine Rusty Vee M.D. [address] [place] [phone] 06/22/2022 Diagnostic Pulmonary Medicine Rusty Vee M.D. [address] [place] [phone] 06/22/2022 Diagnostic Pulmonary Medicine Rusty Vee M.D. [address] [place] [phone] 06/22/2022 Appointment Radiology Rusty Vee M.D. [address] [place] [phone] 06/23/2022 Clinical Communication Admitting/Central Scheduling 06/28/2022 Appointment Pulmonary Medicine Rusty Vee M.D. [address] [place] [phone] 06/28/2022 Appointment Pulmonary Medicine Rusty Vee M.D. [address] [place] [phone] documented as of this encounter Visit Diagnoses Not on filedocumented in this encounter Care Teams Transformer Shop Supervisor Relationship Specialty Start Date End Date Sridhar Garibay M.D. PCP - General 12/08/16 05/23/18 [place] [phone] documented as of this encounter
--- OUTSIDE RECORDS SUMMARY | 2022-05-25 21:05 | XMS_ITS | Encounter Summary ---
:1975 Author Organization [facility] Address [address] [place] [address] Care Team Providers Name Role Phone Unavailable Primary Care Provider Unavailable Encounter Details Date Type Department Care Team Description 06/17/2016 Hospital Encounter HX [facility] Marsha Garibay M.D. [address] [place], [place] [address] (Wo rk) Social History Tobacco Use Types Packs/Day Years Used Date Smoking Tobacco: Never Assessed Alcohol Habits Answer Date Recorded How often [...] More than 4 times per year 05/04/2022 latter-day services? Do you belong to any clubs [...] Date Recorded Female 05/03/2022 7:07 PM MANAGER MASS documented as of this encounter Last Filed Vital Signs Vital Sign Reading Time Taken Comments Blood Pressure - - Pulse - - Temperature - - Respiratory Rate - - Oxygen Saturation - - Inhaled Oxygen Concentration - - Weight - - Height 137 cm (4' 5.94) 06/17/2016 9:29 AM MANAGER MASS Body Mass Index - - documented in [...] Appointment Laboratory Medicine Rusty Vee M.D. [address] [place] [phone] 06/22/2022 Diagnostic Pulmonary Medicine Rusty Vee M.D. [address] [place] [phone] 06/22/2022 Diagnostic Pulmonary Medicine Rusty Vee M.D. [address] [place] [phone] 06/22/2022 Appointment Radiology Rusty Vee M.D. [address] [place] [phone] 06/23/2022 Clinical Communication Admitting/Central Scheduling 06/28/2022 Appointment Pulmonary Rusty Mattson M.D. [address] [place] [phone] 06/28/2022 Appointment Pulmonary Medicine Rusty Vee M.D. [address] [place] [phone] documented as of this encounter Procedures Procedure Name Priority Date/Time Associated Comments Diagnosis PROTHROMBIN TIME Routine 06/17/2016 9:36 AM Resul ts for this (PT), P MANAGER MASS procedure are i n the results section. documented in this encounter Results (ABNORMAL) PT (Prothrombin Time) with INR (06/17/2016 9:36 AM MANAGER MASS) [facility] Method Time Signature Prothrombin 31.5 (H) [...] / Volume Laterality Blood 06/17/2016 9:36 AM MANAGER MASS Sridhar Garibay M.D. LAB BLOOD ADD-ON Performing Organization Address City/State/ZIP Code Phon e Number POWERCHART documented in this encounter Visit Diagnoses Not on filedocumented in this encounter
--- OUTSIDE RECORDS SUMMARY | 2022-05-25 21:05 | XMS_ITS | Encounter Summary ---
:1975 Author Organization [facility] Address [address] [place] [address] Care Team Providers Name Role Phone Unavailable Primary Care Provider Unavailable Encounter Details Date Type Department Care Team Description 05/12/2016 Hospital Encounter [facility] Andrea Whipple M.D. [address] [place], [place] [address] (Wo rk) Social History [...] Date Recorded Female 05/03/2022 7:07 PM ACCOUNT EXECUTIVE AGRIBUSINESS documented as of this encounter Last Filed Vital Signs Vital Sign Reading Time Taken Comments Blood Pressure - - Pulse - - Temperature - - Respiratory Rate - - Oxygen Saturation - - Inhaled Oxygen Concentration - - Weight - - Height 137 cm (4' 5.94) 05/12/2016 9:40 AM ACCOUNT EXECUTIVE AGRIBUSINESS Body Mass Index - - documented in [...] Notes Miscellaneous - Meli Campo, R.N. - 05/12/2016 1:19 PM CST Anticoagulation Patient Intake Anticoagulation Patient Intake Entered On: 05/12/2016 13:20 ACCOUNT EXECUTIVE AGRIBUSINESS Performed On: 05/12/2016 13:19 ACCOUNT EXECUTIVE AGRIBUSINESS by MELI CAMPO RN Plan INR goal range : 2.0 - 3.0 Duration of Therapy : Lifelong Tablet Size : 2 mg, 5 mg MELI CAMPO RN - 05/12/2016 13:19 ACCOUNT EXECUTIVE AGRIBUSINESS Anticoagulation Management Plan Grid Date : 09/05/2013 [...] completed by : MELI Vidal RN - 05/12/2016 13:19 MELI ROJO RN - 05/12/2016 13:19 MELI ROJO - 05/12/2016 13:19 MELI ROJO RN - 05/12/2016 13:19 ACCOUNT EXECUTIVE AGRIBUSINESS Date : 12/26/2013 CDT 01/30/2014 CDT 03/06/2014 [...] : MELI Pradhan RN - 05/12/2016 13:19 MELI ROJO RN - 05/12/2016 13:19 MELI ROJO - 05/12/2016 13:19 MELI ROJO RN - 05/12/2016 13:19 ACCOUNT EXECUTIVE AGRIBUSINESS Date : 03/20/2014 CDT 03/27/2014 CDT 04/10/2014 [...] lackey LM /pharmacy MELI CAMPO RN - 05/12/2016 13:19 ACCOUNT EXECUTIVE AGRIBUSINESS MELI CAMPO RN - 05/12/2016 13:19 ACCOUNT EXECUTIVE AGRIBUSINESS MELI CAMPO - 05/12/2016 13:19 ACCOUNT EXECUTIVE AGRIBUSINESS MELI CAMPO RN - 05/12/2016 13:19 ACCOUNT EXECUTIVE AGRIBUSINESS Date : 04/17/2014 CDT 04/24/2014 CDT 05/01/2014 ACCOUNT EXECUTIVE AGRIBUSINESS 05/15/2014 ACCOUNT EXECUTIVE AGRIBUSINESS Location of INR sample : Lab Lab [...] will trynoted dose called to mom Fabiola [phone] called to Fabiola/no changes Called to mother/Fabiola, not awareof any changes Recommend Recheck : One week One week Two weeks Two weeks Plan completed by : MELI LEON RN - 05/12/2016 13:19 ACCOUNT EXECUTIVE AGRIBUSINESS MELI CAMPO RN - 05/12/2016 13:19 ACCOUNT EXECUTIVE AGRIBUSINESS MELI CAMPO - 05/12/2016 13:19 ACCOUNT EXECUTIVE AGRIBUSINESS MELI CAMPO RN - 05/12/2016 13:19 ACCOUNT EXECUTIVE AGRIBUSINESS Date : 06/03/2014 ACCOUNT EXECUTIVE AGRIBUSINESS 06/05/2014 ACCOUNT EXECUTIVE AGRIBUSINESS 06/10/2014 ACCOUNT EXECUTIVE AGRIBUSINESS 06/11/2014 ACCOUNT EXECUTIVE AGRIBUSINESS Location of INR sample : Lab Type [...] Called motherFabiola. Hue will be staying in [place] 2wks post-surgery & have INR drawn there. [...] lovenox tomorrow AM as ordered. INR in [place] for next several weeks as pt will be recovering there. Recommend Recheck : Other: depending on Dr. Henriquez's preop. Other: 06/18 Other: 06/13/14 Plan completed by : MELI ROSADO RN - 05/12/2016 13:19 ACCOUNT EXECUTIVE AGRIBUSINESS MELI CAMPO RN - 05/12/2016 13:19 ACCOUNT EXECUTIVE AGRIBUSINESS MELI CAMPO - 05/12/2016 13:19 ACCOUNT EXECUTIVE AGRIBUSINESS MELI CAMPO RN - 05/12/2016 13:19 ACCOUNT EXECUTIVE AGRIBUSINESS Date : 06/14/2014 ACCOUNT EXECUTIVE AGRIBUSINESS 06/14/2014 ACCOUNT EXECUTIVE AGRIBUSINESS 06/16/2014 ACCOUNT EXECUTIVE AGRIBUSINESS 06/23/2014 ACCOUNT EXECUTIVE AGRIBUSINESS Location of INR sample : Clinic Lab Lab Type of Sample : Venous Venous INR Result : 1.3 on 06/13 2.4 faxed from lab 2.0 Warfarin Dose : (pt took 2.5mg 06/13) 5mg Sat and 5mg Sun (06/14 and 06/15) 5mg Mon and 2.5mg all other days 5mg Mon and 2.5mg all other days Total Weekly Warfarin Dose : 20 20 Comment : [place] lab called with INR result from 06/13, reported they left a message with Dr. Henriquez and hadn't heard back, spoke with mother, Fabiola, and gave doses, continue Lovenox and repeat INR 06/16, message left with INR clinic in [place] to contact [place] Please contact [place] lab on 06/16 for result and may call Fabiola at [phone] with instructions call to Fabiola/will stop Lovenox injections and take noted dose/pt has an appt here in [place] 06/23 so will do lab appt here that day Called to Fabiola/ Hue will be back at [facility] by next draw. will have done on . no changes to meds/diet. Recommend Recheck : Two days One week Two weeks Plan completed by : MELI Vazquez LM RN - 05/12/2016 13:19 ACCOUNT EXECUTIVE AGRIBUSINESS MELI CAMPO RN - 05/12/2016 13:19 ACCOUNT EXECUTIVE AGRIBUSINESS MELI CAMPO LRN - 05/12/2016 13:19 ACCOUNT EXECUTIVE AGRIBUSINESS MELI CAMPO RN - 05/12/2016 13:19 ACCOUNT EXECUTIVE AGRIBUSINESS Date : 07/10/2014 ACCOUNT EXECUTIVE AGRIBUSINESS 07/17/2014 ACCOUNT EXECUTIVE AGRIBUSINESS 07/31/2014 ACCOUNT EXECUTIVE AGRIBUSINESS 09/11/2014 CDT Location of INR sample : [...] Plan completed by : darya BoyceK ly MELI DEUTSCH RN - 05/12/2016 13:19 ACCOUNT EXECUTIVE AGRIBUSINESS MELI CAMPO RN - 05/12/2016 13:19 MELI ROJO - 05/12/2016 13:19 MELI ROJO RN - 05/12/2016 13:19 ACCOUNT EXECUTIVE AGRIBUSINESS Date : 09/12/2014 CDT 09/25/2014 CDT 10/02/2014 [...] GUADALUPE lackey JM MELI Carroll RN - 05/12/2016 13:19 ACCOUNT EXECUTIVE AGRIBUSINESS MELI CAMPO RN - 05/12/2016 13:19 ACCOUNT EXECUTIVE AGRIBUSINESS MELI CAMPO - 05/12/2016 13:19 MELI ROJO RN - 05/12/2016 13:19 ACCOUNT EXECUTIVE AGRIBUSINESS Date : 10/23/2014 CDT 11/13/2014 CDT 11/20/2014 [...] : MELI Bailey RN - 05/12/2016 13:19 ACCOUNT EXECUTIVE AGRIBUSINESS MELI CAMPO RN - 05/12/2016 13:19 MELI ROJO - 05/12/2016 13:19 MELI ROJO RN - 05/12/2016 13:19 ACCOUNT EXECUTIVE AGRIBUSINESS Date : 12/04/2014 CDT 12/18/2014 CDT 01/15/2015 [...] : MELI Shirley RN - 05/12/2016 13:19 ACCOUNT EXECUTIVE AGRIBUSINESS MELI CAMPO RN - 05/12/2016 13:19 MELI ROJO - 05/12/2016 13:19 MELI ROJO RN - 05/12/2016 13:19 ACCOUNT EXECUTIVE AGRIBUSINESS Date : 02/05/2015 CDT 02/26/2015 CDT 03/05/2015 [...] : MELI CAMPOS RN - 05/12/2016 13:19 ACCOUNT EXECUTIVE AGRIBUSINESS MELI CAMPO RN - 05/12/2016 13:19 ACCOUNT EXECUTIVE AGRIBUSINESS MELI CAMPO - 05/12/2016 13:19 ACCOUNT EXECUTIVE AGRIBUSINESS MELI CAMPO RN - 05/12/2016 13:19 ACCOUNT EXECUTIVE AGRIBUSINESS Date : 04/09/2015 CDT 05/07/2015 ACCOUNT EXECUTIVE AGRIBUSINESS 06/04/2015 ACCOUNT EXECUTIVE AGRIBUSINESS 07/02/2015 ACCOUNT EXECUTIVE AGRIBUSINESS Location of INR sample : Lab Lab [...] : MELI Keating RN - 05/12/2016 13:19 ACCOUNT EXECUTIVE AGRIBUSINESS MELI CAMPO RN - 05/12/2016 13:19 MELI ROJO - 05/12/2016 13:19 MELI ROJO RN - 05/12/2016 13:19 ACCOUNT EXECUTIVE AGRIBUSINESS Date : 08/06/2015 ACCOUNT EXECUTIVE AGRIBUSINESS 09/17/2015 CDT 10/29/2015 CDT 11/12/2015 CDT Location [...] : MELI Edwards RN - 05/12/2016 13:19 ACCOUNT EXECUTIVE AGRIBUSINESS MELI CAMPO RN - 05/12/2016 13:19 MELI ROJO - 05/12/2016 13:19 MELI ROJO RN - 05/12/2016 13:19 ACCOUNT EXECUTIVE AGRIBUSINESS Date : 11/19/2015 CDT 12/03/2015 CDT 12/31/2015 [...] : MELI Pickett RN - 05/12/2016 13:19 ACCOUNT EXECUTIVE AGRIBUSINESS MELI CAMPO RN - 05/12/2016 13:19 ACCOUNT EXECUTIVE AGRIBUSINESS MELI CAMPO N - 05/12/2016 13:19 ACCOUNT EXECUTIVE AGRIBUSINESS MELI CAMPO RN - 05/12/2016 13:19 ACCOUNT EXECUTIVE AGRIBUSINESS Date : 02/19/2016 CDT 02/20/2016 CDT 02/21/2016 CDT 02/22/2016 CDT Location of INR sample : [facility] Type of Sample : Venous [...] completed by : Tyshawn Brizuela, Pharm.DMichael Brizuela, Pharm.Rohit ASTUDILLO, PharmD Rea LeonD. MELI CAMPO RN - 05/12/2016 13:19 ACCOUNT EXECUTIVE AGRIBUSINESS MELI CAMPO RN - 05/12/2016 13:19 [facility] MELI CAMPO N - 05/12/2016 13:19 [facility] MELI CAMPO RN - 05/12/2016 13:19 ACCOUNT EXECUTIVE AGRIBUSINESS Date : 02/23/2016 CDT 02/24/2016 CDT 02/25/2016 CDT 02/26/2016 CDT Location of INR sample : [facility] Type of Sample : Venous [...] PharmD. MELI CAMPO RN - 05/12/2016 13:19 ACCOUNT EXECUTIVE AGRIBUSINESS MELI CAMPO RN - 05/12/2016 13:19 ACCOUNT EXECUTIVE AGRIBUSINESS MELI CAMPO - 05/12/2016 13:19 ACCOUNT EXECUTIVE AGRIBUSINESS MELI CAMPO RN - 05/12/2016 13:19 ACCOUNT EXECUTIVE AGRIBUSINESS Date : 02/27/2016 CDT 03/01/2016 CDT 03/04/2016 CDT 03/07/2016 CDT [facility] of [facility]R sample [facility] Type of Sample : Venous Capillary/POC Venous Capillary/POC INR Result : 2.07 2.5 2.2 2.4 Warfarin Dose : 2 mg daily 2mg daily 2.5mg 03/04-03/06 2.5mg Mon,Mon,Mon Total Weekly Warfarin Dose : 14 15.5 Comment : Pt being discharged on Bactrim. Will group leader rx for 2 mg tabs On bactrim 2 days left, has f/u in [place] on Monday. Pt mother states plan to return to [facility] on 03/06. next f/u will be in [employer]. 2mg Tu[place] Rev'd with Jelly/Pharmacist,called to mom/Fabiola [...] : MELI Bone RN, RN RN - 05/12/2016 13:19 ACCOUNT EXECUTIVE AGRIBUSINESS MELI CAMPO RN - 05/12/2016 13:19 ACCOUNT EXECUTIVE AGRIBUSINESS MELI CAMPO - 05/12/2016 13:19 ACCOUNT EXECUTIVE AGRIBUSINESS MELI CAMPO RN - 05/12/2016 13:19 ACCOUNT EXECUTIVE AGRIBUSINESS Date : 03/11/2016 CDT 03/16/2016 CDT 03/31/2016 [...] : MELI Lorenzana RN - 05/12/2016 13:19 ACCOUNT EXECUTIVE AGRIBUSINESS MELI CAMPO RN - 05/12/2016 13:19 MELI ROJO - 05/12/2016 13:19 MELI ROJO RN - 05/12/2016 13:19 ACCOUNT EXECUTIVE AGRIBUSINESS Date : 05/11/2016 ACCOUNT EXECUTIVE AGRIBUSINESS 05/12/2016 ACCOUNT EXECUTIVE AGRIBUSINESS Location of INR sample : Other: Drawn in [place] Type of Sample : INR Result : 1.6 Warfarin Dose : 2.5mg daily Total Weekly Warfarin Dose : Comment : Per Mom/Fabiola, pt disch from [facility] today, fell & fx left humerus 05/08, surg 05/09, INR 1.3 on 05/08, 1.5 on 05/09, 1.6 on 05/10 & 1.4 05/11, has had 2.5mg daily since 05/09, going to for INR 05/12 & result to be faxed to us, not on Lovenox rev'd with JimPharmacist,called to mom/Fabiola,she will have it done in [place] again Tu Recommend Recheck : Other: 05/12/16 Other: 05/17/16 Plan completed by : MELI ESPINOZA RN - 05/12/2016 13:19 ACCOUNT EXECUTIVE AGRIBUSINESS MELI CAMPO RN - 05/12/2016 13:19 ACCOUNT EXECUTIVE AGRIBUSINESS Anticoagulation Assessment / History Visit : Phone management Plan of Care Date : 01/29/2008 CDT Primary Physician Anticoagulation : TASHA HENRIQUEZ MD 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 [address] [place] [phone] 06/22/2022 Diagnostic Pulmonary Medicine Rusty Vee M.D. [address] [place] [phone] 06/22/2022 Diagnostic Pulmonary Medicine Rusty Vee M.D. [address] [place] [phone] 06/22/2022 Appointment Radiology Rusty Vee M.D. [address] [place] [phone] 06/23/2022 Clinical Communication Admitting/Central Scheduling 06/28/2022 Appointment Pulmonary Medicine Rusty Vee M.D. [address] [place] [phone] 06/28/2022 Appointment Pulmonary Medicine Rusty Vee M.D. [address] [place] [phone] documented as of this encounter Visit Diagnoses Not on filedocumented in this encounter
--- OUTSIDE RECORDS SUMMARY | 2022-05-25 21:05 | XMS_ITS | Encounter Summary ---
:1975 Author Organization [facility] Address [address] [place] [address] Care Team Providers Name Role Phone Unavailable Primary Care Provider Unavailable Encounter Details Date Type Department Care Team Description 06/13/2016 Hospital Encounter HX [facility] Marsha Garibay M.D. [address] [place], [place] [address] (Wo rk) Social History [...] at Date Recorded Female 05/03/2022 7:07 PM CHUTE TAPPER documented as of this encounter Last Filed Vital Signs Vital Sign Reading Time Taken Comments Blood Pressure - - Pulse - - Temperature - - Respiratory Rate - - Oxygen Saturation - - Inhaled Oxygen Concentration - - Weight - - Height 137 cm (4' 5.94) 06/13/2016 10:08 AM CHUTE TAPPER Body Mass Index - - documented in [...] Laboratory Medicine Rusty Vee M.D. [address] [place] [phone] 06/22/2022 Diagnostic Pulmonary Medicine Rusty Vee M.D. [address] [place] [phone] 06/22/2022 Diagnostic Pulmonary Medicine Rusty Vee M.D. [address] [place] [phone] 06/22/2022 Appointment Radiology Rusty Vee M.D. [address] [place] [phone] 06/23/2022 Clinical Communication Admitting/Central Scheduling 06/28/2022 Appointment Pulmonary Rusty Mattson M.D. [address] [place] [phone] 06/28/2022 Appointment Pulmonary Medicine Rusty Vee M.D. [address] [place] [phone] documented as of this encounter Procedures Procedure Name Priority Date/Time Associated Comments Diagnosis PROTHROMBIN TIME Routine 06/13/2016 10:15 Results for this (PT), P AM CHUTE TAPPER procedure are i n the results section. documented in this encounter Results (ABNORMAL) PT (Prothrombin Time) with INR (06/13/2016 10:15 AM CHUTE TAPPER) [facility] Method Time Signature Prothrombin [...] / Volume Laterality Blood 06/13/2016 10:15 AM CHUTE TAPPER Sridhar Garibay M.D. LAB BLOOD ADD-ON Performing Organization Address City/State/ZIP Code Phon e Number POWERCHART documented in this encounter Visit Diagnoses Not on filedocumented in this encounter
--- OUTSIDE RECORDS SUMMARY | 2022-05-25 21:05 | XMS_ITS | Encounter Summary ---
:1975 Author Organization [facility] Address [address] [place] [id number] Care Team Providers Name Role Phone Unavailable Primary Care Provider Unavailable Encounter Details Date Type Department Care Team Description 06/24/2016 Hospital Encounter HX [facility] Marsha Henriquez M.D. [address] [place], [place] [address] (Wo rk) Social History [...] or relatives? How often do you attend denominational or More than 4 times per year 05/04/2022 jain services? Do you belong to any clubs or Yes 05/04/2022 organizations such as denominational groups, unions, fraternal or athletic groups, or [...] Date Recorded Female 05/03/2022 7:07 PM SENIOR BACKUP ADMINISTRATOR documented as of this encounter Last Filed Vital Signs Vital Sign Reading Time Taken Comments Blood Pressure - - Pulse - - Temperature - - Respiratory Rate - - Oxygen Saturation - - Inhaled Oxygen Concentration - - Weight - - Height 146 cm (4' 9.48) 06/24/2016 9:35 AM SENIOR BACKUP ADMINISTRATOR Body Mass Index - - documented in [...] Anticoagulation Patient Intake Entered On: 06/24/2016 16:16 SENIOR BACKUP ADMINISTRATOR Performed On: 06/24/2016 16:14 SENIOR BACKUP ADMINISTRATOR by WALI MCCLELLAN RN Plan INR goal range : 2.0 - 3.0 Duration of Therapy : Lifelong Tablet Size : 2 mg, 5 mg WALI MCCLELLAN RN - 06/24/2016 16:14 SENIOR BACKUP ADMINISTRATOR Anticoagulation Management Plan Grid Date : 09/05/2013 [...] : WALI Tracy RN - 06/24/2016 16:14 WALI REYNOLDS RN - 06/24/2016 16:14 WALI REYNOLDS RN - 06/24/2016 16:14 WALI REYNOLDS RN - 06/24/2016 16:14 SENIOR BACKUP ADMINISTRATOR Date : 12/26/2013 CDT 01/30/2014 CDT 03/06/2014 [...] 25 25 25 Comment : called to Fabiloa called to Fabiola called to Fabiola, no changes, did have a pimple a couple ofweeks ago that bled for a long time, no bleeding now left [facility] for Fabiola,call if changes Recommend Recheck : Other: 5 weeks Other: 5 weeks Other: 03/10/2014 Other: 03/20/14 Plan completed by : WALI Davidson RN - 06/24/2016 16:14 WALI REYNOLDS RN - 06/24/2016 16:14 WALI REYNOLDS RN - 06/24/2016 16:14 WALI REYNOLDS RN - 06/24/2016 16:14 SENIOR BACKUP ADMINISTRATOR Date : 03/20/2014 CDT 03/27/2014 CDT 04/10/2014 CDT 04/12/2014 CDT Location of INR sample : Lab Lab Lab Lab Type of Sample : Venous Venous Venous INR Result : 3.8 3.2 5.3 2.9 Warfarin Dose : HOLD 03/20, then 5mg Mon/Wed, 2.5mg all other days 5mg Mon/Wed, 2.5mg all other days Hold 04/10-10/17 5 mg mondays, 2.5 mg all other [...] lackey LM /pharmacy WALI MCCLELLAN RN - 06/24/2016 16:14 SENIOR BACKUP ADMINISTRATOR WALI MCCLELLAN RN - 06/24/2016 16:14 SENIOR BACKUP ADMINISTRATOR WALI MCCLELLAN RN - 06/24/2016 16:14 SENIOR BACKUP ADMINISTRATOR WALI MCCLELLAN RN - 06/24/2016 16:14 SENIOR BACKUP ADMINISTRATOR Date : 04/17/2014 CDT 04/24/2014 CDT 05/01/2014 SENIOR BACKUP ADMINISTRATOR 05/15/2014 SENIOR BACKUP ADMINISTRATOR Location of INR sample : Lab Lab [...] will trynoted dose called to mom Fabiola [phone] called to Fabiola/no changes Called to mother/Fabiola, not awareof any changes Recommend Recheck : One week One week Two weeks Two weeks Plan completed by : WALI CHOI RN - 06/24/2016 16:14 SENIOR BACKUP ADMINISTRATOR WALI MCCLELLAN RN - 06/24/2016 16:14 WALI REYNOLDS RN - 06/24/2016 16:14 SENIOR BACKUP ADMINISTRATOR WALI MCCLELLAN RN - 06/24/2016 16:14 SENIOR BACKUP ADMINISTRATOR Date : 06/03/2014 SENIOR BACKUP ADMINISTRATOR 06/05/2014 SENIOR BACKUP ADMINISTRATOR 06/10/2014 SENIOR BACKUP ADMINISTRATOR 06/11/2014 SENIOR BACKUP ADMINISTRATOR Location of INR sample : Lab Type [...] Called motherFabiola. Hue will be staying in [place] 2wks post-surgery & have INR drawn there. [...] lovenox tomorrow AM as ordered. INR in [place] for next several weeks as pt will be recovering there. Recommend Recheck : Other: depending on Dr. Henriquez's preop. Other: 06/18 Other: 06/13/14 Plan completed by : WALI TYLER RN - 06/24/2016 16:14 SENIOR BACKUP ADMINISTRATOR WALI MCCLELLAN RN - 06/24/2016 16:14 WALI REYNOLDS RN - 06/24/2016 16:14 WALI REYNOLDS RN - 06/24/2016 16:14 SENIOR BACKUP ADMINISTRATOR Date : 06/14/2014 SENIOR BACKUP ADMINISTRATOR 06/14/2014 SENIOR BACKUP ADMINISTRATOR 06/16/2014 SENIOR BACKUP ADMINISTRATOR 06/23/2014 SENIOR BACKUP ADMINISTRATOR Location of INR sample : Clinic Lab [...] for result and may call Fabiola at [phone] with instructions call to Fabiola/will stop Lovenox injections and take noted dose/pt has an appt here in [place] 06/23 so will do lab appt here that day Called to Fabiola/ Hue will be back at [facility] by next draw. will have done on . no changes to meds/diet. Recommend Recheck : Two days One week Two weeks Plan completed by : WALI Steven LM RN - 06/24/2016 16:14 SENIOR BACKUP ADMINISTRATOR WALI MCCLELLAN RN - 06/24/2016 16:14 SENIOR BACKUP ADMINISTRATOR WALI MCCLELLAN RN - 06/24/2016 16:14 WALI REYNOLDS RN - 06/24/2016 16:14 SENIOR BACKUP ADMINISTRATOR Date : 07/10/2014 SENIOR BACKUP ADMINISTRATOR 07/17/2014 SENIOR BACKUP ADMINISTRATOR 07/31/2014 SENIOR BACKUP ADMINISTRATOR 09/11/2014 CDT Location of INR sample : [...] Two weeks Plan completed by : darya JK ly WALI ROLDAN RN - 06/24/2016 16:14 SENIOR BACKUP ADMINISTRATOR WALI MCCLELLAN RN - 06/24/2016 16:14 WALI REYNOLDS RN - 06/24/2016 16:14 WALI REYNOLDS RN - 06/24/2016 16:14 SENIOR BACKUP ADMINISTRATOR Date : 09/12/2014 CDT 09/25/2014 CDT 10/02/2014 [...] GUADALUPE lackey JM WALI Ervin RN - 06/24/2016 16:14 SENIOR BACKUP ADMINISTRATOR WALI MCCLELLAN RN - 06/24/2016 16:14 WALI REYNOLDS RN - 06/24/2016 16:14 WALI REYNOLDS RN - 06/24/2016 16:14 SENIOR BACKUP ADMINISTRATOR Date : 10/23/2014 CDT 11/13/2014 CDT 11/20/2014 [...] : WALI Skinner RN - 06/24/2016 16:14 SENIOR BACKUP ADMINISTRATOR WALI MCCLELLAN RN - 06/24/2016 16:14 SENIOR BACKUP ADMINISTRATOR WALI MCCLELLAN RN - 06/24/2016 16:14 WALI REYNOLDS RN - 06/24/2016 16:14 SENIOR BACKUP ADMINISTRATOR Date : 12/04/2014 CDT 12/18/2014 CDT 01/15/2015 [...] : WALI Cabrera RN - 06/24/2016 16:14 SENIOR BACKUP ADMINISTRATOR WALI MCCLELLAN RN - 06/24/2016 16:14 WALI REYNOLDS RN - 06/24/2016 16:14 WALI REYNOLDS RN - 06/24/2016 16:14 SENIOR BACKUP ADMINISTRATOR Date : 02/05/2015 CDT 02/26/2015 CDT 03/05/2015 [...] : WALI LAWRENCE RN - 06/24/2016 16:14 SENIOR BACKUP ADMINISTRATOR WALI MCCLELLAN RN - 06/24/2016 16:14 WALI REYNOLDS RN - 06/24/2016 16:14 WALI REYNOLDS RN - 06/24/2016 16:14 SENIOR BACKUP ADMINISTRATOR Date : 04/09/2015 CDT 05/07/2015 SENIOR BACKUP ADMINISTRATOR 06/04/2015 SENIOR BACKUP ADMINISTRATOR 07/02/2015 SENIOR BACKUP ADMINISTRATOR Location of INR sample : Lab Lab [...] completed by : WALI Nelson RN - 06/24/2016 16:14 SENIOR BACKUP ADMINISTRATOR WALI MCCLELLAN RN - 06/24/2016 16:14 WALI REYNOLDS RN - 06/24/2016 16:14 WALI REYNOLDS RN - 06/24/2016 16:14 SENIOR BACKUP ADMINISTRATOR Date : 08/06/2015 SENIOR BACKUP ADMINISTRATOR 09/17/2015 CDT 10/29/2015 CDT 11/12/2015 CDT Location [...] : WALI Toussaint RN - 06/24/2016 16:14 WALI REYNOLDS RN - 06/24/2016 16:14 WALI REYNOLDS RN - 06/24/2016 16:14 WALI REYNOLDS RN - 06/24/2016 16:14 SENIOR BACKUP ADMINISTRATOR Date : 11/19/2015 CDT 12/03/2015 CDT 12/31/2015 [...] WALI Will RN - 06/24/2016 16:14 [facility] WALI MCCLELLAN RN - 06/24/2016 16:14 [facility] WALI MCCLELLAN RN - 06/24/2016 16:14 [facility] WALI MCCLELLAN RN - 06/24/2016 16:14 SENIOR BACKUP ADMINISTRATOR Date : 02/19/2016 CDT 02/20/2016 CDT 02/21/2016 CDT 02/22/2016 CDT Location of INR sample : [facility] Type of Sample : Venous Venous [...] Brizuela, Pharm.DMichael Brizuela PharmJaime ASTUDILLO, PharmD Eliseo Quezada PharmD. WALI MCCLELLAN RN - 06/24/2016 16:14 [facility] WALI MCCLELLAN RN - 06/24/2016 16:14 [facility] WALI MCCLELLAN RN - 06/24/2016 16:14 [facility] WALI MCCLELLAN RN - 06/24/2016 16:14 SENIOR BACKUP ADMINISTRATOR Date : 02/23/2016 CDT 02/24/2016 CDT 02/25/2016 CDT 02/26/2016 CDT Location of INR sample : [facility] Type of Sample : Venous Venous [...] day Plan completed by : Eliseo Quezada, PharmVlaentina. Eliseo Quezada, PharmRohit Brizuela, Pharm.DRea MachadoD. WALI MCCLELLAN RN - 06/24/2016 16:14 SENIOR BACKUP ADMINISTRATOR WALI MCCLELLAN RN - 06/24/2016 16:14 WALI REYNOLDS RN - 06/24/2016 16:14 WALI REYNOLDS RN - 06/24/2016 16:14 SENIOR BACKUP ADMINISTRATOR Date : 02/27/2016 CDT 03/01/2016 CDT 03/04/2016 CDT 03/07/2016 CDT [facility] Type of Sample : Venous Capillary/POC Venous Capillary/POC INR Result : 2.07 2.5 2.2 2.4 Warfarin Dose : 2 mg daily 2mg daily 2.5mg 03/04-03/06 2.5mg Mon,Mon,Mon Total Weekly Warfarin Dose : 14 15.5 Comment : Pt being discharged on Bactrim. Will pear picker rx for 2 mg tabs On bactrim 2 days left, has f/u in [place] on Monday. Pt mother states plan to return to [facility] on 03/06. next f/u will be in [facility]. 2mg TuWTh Rev'd with Jelly/Pharmacist,called [...] Cartagena RN, RN, RN - 06/24/2016 16:14 WALI REYNOLDS RN - 06/24/2016 16:14 WALI REYNOLDS RN - 06/24/2016 16:14 WALI REYNOLDS RN - 06/24/2016 16:14 SENIOR BACKUP ADMINISTRATOR Date : 03/11/2016 CDT 03/16/2016 CDT 03/31/2016 [...] pt will be staying with sister in [facility] next week she will have INR drawn in again called to Fabiola/pt to do next INR at [facility] on a ./no changes called to Fabiola/no changes called to Fabiola/Mom,no changes/missed doses Recommend Recheck : Other: 03/16/16 Other: 03/31/16(2 weeks) One month Two weeks Plan completed by : WALI Segura RN - 06/24/2016 16:14 SENIOR BACKUP ADMINISTRATOR WALI MCCLELLAN RN - 06/24/2016 16:14 SENIOR BACKUP ADMINISTRATOR WALI MCCLELLAN RN - 06/24/2016 16:14 WALI REYNOLDS RN - 06/24/2016 16:14 SENIOR BACKUP ADMINISTRATOR Date : 05/11/2016 SENIOR BACKUP ADMINISTRATOR 05/12/2016 SENIOR BACKUP ADMINISTRATOR 05/17/2016 SENIOR BACKUP ADMINISTRATOR 05/24/2016 SENIOR BACKUP ADMINISTRATOR Location of INR sample : Other: Drawn [place] Other: [place] Other: [place] Type of Sample : INR Result : 1.6 2.4 1.8 Warfarin Dose : 2.5mg daily 2.5mg daily 5mg 05/24 then 2.5mg daily Total Weekly Warfarin Dose : 17.5 Comment : Per Mom/Fabiola, pt disch from [facility] today, fell & fx left humerus 05/08, [...] : WALI REIS RN - 06/24/2016 16:14 SENIOR BACKUP ADMINISTRATOR WALI MCCLELLAN RN - 06/24/2016 16:14 WALI REYNOLDS RN - 06/24/2016 16:14 WALI REYNOLDS RN - 06/24/2016 16:14 SENIOR BACKUP ADMINISTRATOR Date : 06/01/2016 SENIOR BACKUP ADMINISTRATOR 06/06/2016 SENIOR BACKUP ADMINISTRATOR 06/10/2016 SENIOR BACKUP ADMINISTRATOR 06/13/2016 SENIOR BACKUP ADMINISTRATOR Location of INR sample : Other: [place] Other: [facility] Other: [facility] Type [...] : WALI Mckay RN - 06/24/2016 16:14 SENIOR BACKUP ADMINISTRATOR WALI MCCLELLAN RN - 06/24/2016 16:14 SENIOR BACKUP ADMINISTRATOR WALI MCCLELLAN RN - 06/24/2016 16:14 WALI REYNOLDS RN - 06/24/2016 16:14 SENIOR BACKUP ADMINISTRATOR Date : 06/17/2016 SENIOR BACKUP ADMINISTRATOR 06/24/2016 SENIOR BACKUP ADMINISTRATOR Location of INR sample : Other: [facility] Other: [facility] Type of Sample [...] : WALI FITZPATRICK RN - 06/24/2016 16:14 SENIOR BACKUP ADMINISTRATOR WALI MCCLELLAN RN - 06/24/2016 16:14 SENIOR BACKUP ADMINISTRATOR Anticoagulation Assessment / History Visit : Phone management Plan of Care Date : 01/29/2008 CDT Primary Physician Anticoagulation : TASHA HENRIQUEZ MD 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 : DVT Lower, Other: Deep Phlebitis-Leg NEC CHADS2 Score Date : 09/05/2013 CDT WALI MCCLELLAN RN - 06/24/2016 16:14 SENIOR BACKUP ADMINISTRATOR Changes / Problems Changes/Problems Since Last Visit : None Been Scheduled For : None Missed Coumadin Doses : None Change In Intake : None Change In Medication : None Have You Had : None Plans to Travel : No WALI MCCLELLAN RN - 06/24/2016 16:14 SENIOR BACKUP ADMINISTRATOR Source: [email or web address] Document Id: [id number] SENIOR BACKUP ADMINISTRATOR![id number] OR BACKUP ADMINISTRATOR Miscellaneous - Chava Garza R.N. - 06/24/2016 4:12 PM CST INR from 06/24/16 Document Contains Addenda Addendum by WALI MCCLELLAN RN on June 24, 2016 16:27:28 SENIOR BACKUP ADMINISTRATOR From: WALI MCCLELLAN RN ( Anticoagulation Nurse) To: CHAVA GARZA R.N.; Sent: 06/24/2016 16:27:28 SENIOR BACKUP ADMINISTRATOR Subject: RE: INR from 06/24/16 Reviewed and called to Mom/Fabiola. From: CHAVA GARZA R.N. To: Anticoagulation Nurse; Sent: 06/24/2016 16:12:36 SENIOR BACKUP ADMINISTRATOR ! Subject: INR from 06/24/16 Dr. Penny wanted me to touch base and make sure someone reviews patients INR results from today andmake adjustments as needed. Source: [facility] POWERCHART Document Id: [id number] Electronically signed by Conversion, [facility] Agent Contract Clerk [id number] at 11/20/2016 11:41 AM CDT documented in this encounter Plan of Treatment Upcoming Encounters Date Type Specialty Care Team Description 06/22/2022 Appointment Laboratory Medicine Rusty Vee M.D. [address] [place] [phone] 06/22/2022 Diagnostic Pulmonary Medicine Rusty Vee M.D. [address] [place] [phone] 06/22/2022 Diagnostic Pulmonary Medicine Rusty Vee M.D. [address] [place] [phone] 06/22/2022 Appointment Radiology Rusty Vee M.D. [address] [place] [phone] 06/23/2022 Clinical Communication Admitting/Central Scheduling 06/28/2022 Appointment Pulmonary Medicine Rusty Vee M.D. [address] [place] [phone] 06/28/2022 Appointment Pulmonary Medicine Rusty Vee M.D. [address] [place] [phone] documented as of this encounter Procedures Procedure Name Priority Date/Time Associated Comments Diagnosis PROTHROMBIN TIME Routine 06/24/2016 9:38 AM Resul ts for this (PT), P SENIOR BACKUP ADMINISTRATOR procedure are i n the results section. documented in this encounter Results (ABNORMAL) PT (Prothrombin Time) with INR (06/24/2016 9:38 AM SENIOR BACKUP ADMINISTRATOR) Patholo gist Method Time Signature Prothrombin 27.5 (H) [...] / Volume Laterality Blood 06/24/2016 9:38 AM SENIOR BACKUP ADMINISTRATOR Tasha Henriquez M.D. LAB BLOOD ADD-ON Performing Organization Address City/State/ZIP Code Phon e Number POWERCHART documented in this encounter Visit Diagnoses Not on filedocumented in this encounter
--- OUTSIDE RECORDS SUMMARY | 2022-05-25 21:05 | XMS_ITS | Encounter Summary ---
:[address] [facility] Address [address] [place] [address] Care Team Providers Name Role Phone Unavailable Primary Care Provider Unavailable Encounter Details Date Type Department Care Team Description 05/09/2016 - Hospital Encounter HX RST SANTOSH RAVI 8G SemsÓscar, 05/11/2016 M.D. [address] [place] [phone] Social History Tobacco Use Types Packs/Day Years [...] at Date Recorded Female 05/03/2022 7:07 PM [employer] documented as of this encounter Last Filed Vital Signs Vital Sign Reading Time Taken Comments Blood Pressure 95/53 05/11/2016 7:30 AM NIBP - Value from [facility]. Pulse 81 05/11/2016 8:44 AM Value from [employer]. [employer]OR Temperature - - Respiratory Rate 20 05/11/2016 7:30 AM Value from Danie haile. [employer] Oxygen Saturation - - Inhaled Oxygen - - Concentration Weight 76.5 kg (168 lb 10.4 05/09/2016 11:14 Vital s ign result oz) AM [employer] SUPERVISOR from [facility]. Height 137.2 cm (4' 6.02) 05/09/2016 11:14 Vital si gn result AM [employer]OR from [facility]. Body Mass Index 40.64 05/09/2016 11:14 AM [employer]PER[employer]OR documented in this encounter Medications at Time [...] Appointment Laboratory Medicine Rusty Vee M.D. [address] [place] [phone] 06/22/2022 Diagnostic Pulmonary Medicine Rusty Vee M.D. [address] [place] [phone] 06/22/2022 Diagnostic Pulmonary Medicine Rusty Vee M.D. [address] [place] [phone] 06/22/2022 Appointment Radiology Rusty Vee M.D. [address] [place] [phone] 06/23/2022 Clinical Communication Admitting/Central Scheduling 06/28/2022 Appointment Pulmonary Medicine Rusty Vee M.D. [address] [place] [phone] 06/28/2022 Appointment Pulmonary Medicine Rusty Vee M.D. [address] [place] [phone] documented as of this encounter Procedures Procedure Name Priority Date/Time Associated Comments Diagnosis PROTHROMBIN TIME (PT), Routine 05/11/2016 4:50 AM Results for this P [employer] procedure are i n the results section. ELECTROLYTE (CHEM 4) Routine 05/10/2016 4:46 AM R esults for this PANEL, S/P [employer]OR procedure are i n the results section. THROMBOPHILIA PROF Routine 05/10/2016 4:46 AM Res ults for this [employer]OR procedure are i n the results section. HOMOCYSTEINE, TOT, P Routine 05/10/2016 4:46 AM R esults for this [employer]OR procedure are i n the results section. ANTITHROMBIN AG, P Routine 05/10/2016 4:46 AM Res ults for this [employer]OR procedure are i n the results section. PHOSPHOLIPID Routine 05/10/2016 4:46 AM Results f or this (CARDIOLIPIN) ABS, [employer] SUPERVISOR procedure are in IGG, S the results section. PHOSPHOLIPID Routine 05/10/2016 4:46 AM Results f or this (CARDIOLIPIN) ABS, [employer] SUPERVISOR procedure are in IGA, S the results section. PROTEIN S AG, TOT, P Routine 05/10/2016 4:46 AM R esults for this [employer]OR procedure are i n the results section. PT MIX 1:1 Routine 05/10/2016 4:46 AM Results f or this [employer]OR procedure are i n the results section. PROTHROMBIN TIME (PT), Routine 05/10/2016 4:46 AM Results for this P [employer]OR procedure are i n the results section. COAG FACTOR VII Routine 05/10/2016 4:46 AM Result s for this ACTIVITY ASSAY, P [employer]OR procedure are in the results section. COAG FACTOR II Routine 05/10/2016 4:46 AM Results for this ACTIVITY ASSAY, P [employer] procedure are in the results section. CBC WITHOUT Routine 05/10/2016 4:46 AM Results f or this DIFFERENTIAL, B [employer]OR procedure ar e in the results section. PROTHROMBIN TIME (PT), Routine 05/09/2016 9:23 PM Results for this P [employer]OR procedure are i n the results section. FL FLUORO LESS THAN 1 Routine 05/09/2016 4:17 PM Results for this HOUR [employer] procedure are i n the results section. ELBOW, 1-2VWS Routine 05/09/2016 4:16 PM Results for this [employer]OR procedure are i n the results section. HEMOGLOBIN, B Routine 05/09/2016 3:50 PM Results for this [employer]PER[employer]OR procedure are i n the results section. CT 3D REQUIRING Routine 05/09/2016 8:35 AM Result s for this INDEPENDENT [employer]PERVISOR procedure are i n WORKSTATION the results section. ECG Routine 05/09/2016 7:53 AM Results f or this [employer]PER[employer]OR procedure are i n the results section. CT UPPER EXTREMITY Routine 05/09/2016 12:45 Resul ts for this WITHOUT IV CONTRAST AM [employer]PERVISOR procedur e are in the results section. ELBOW, 1-2VWS Routine 05/08/2016 7:47 PM Results for this [employer]OR procedure are i n the results section. DX SHOULDER UNILATERAL Routine 05/08/2016 7:41 PM Results for this 2+ VIEWS [employer]OR procedure are i n the results section. documented in this encounter Results (ABNORMAL) PT (Prothrombin Time) with INR (05/11/2016 4:50 AM GR[employer] SUPERVISOR) [facility] gist Method Time Signature Prothrombin 16.4 (H) 9.5 - [facility] Time, P 13.8 SEC LABORATORIES [facility] INR 1.4 0.8 - 1.2 [facility] Specimen Anatomical Collection Method Collection Time Receive d Time (Source) Location / / Volume Laterality 05/11/2016 4:50 AM 6 4:50 [employer] SUPERVISOR AM [employer] SUPERVISOR Óscar Ortiz M.D. LAB BLOOD ADD-ON Performing Organization Address City/State/ZIP Code Phon e Number [facility] - [address] [place], [place] [address] [facility] PT Mix 1:1 (05/10/2016 4:46 AM [employer] SUPERVISOR) athologist Signature PT Mix 1:1 12.0 10.3 - 12.8 [facility] SEC [facility] Specimen Anatomical Collection Method Collection Time Receive d Time (Source) Location / / Volume Laterality 05/10/2016 4:46 AM 6 4:46 [employer] SUPERVISOR AM [employer] SUPERVISOR Kanchan Delgado APRN, C.N.P., M.S.N. LAB BLOOD ADD-ON Performing Organization Address City/[facility]/ZIP [facility] Phon e Number [facility] LAB[facility]ATORIES - [address] [place] [phone] [facility] (ABNORMAL) Coagulation Factor VII Activity Assay (05/10/2016 4:46 AM GR[employer] SUPERVISOR) Analysis Performed At [facility] logist [place] Signature Coag Factor 35 (L) 65 - 180 % [facility] VII Assay, P [facility] Specimen Anatomical Collection Method Collection Time Receive d Time (Source) Location / / Volume Laterality 05/10/2016 4:46 AM 6 4:46 [employer] SUPERVISOR AM [employer] SUPERVISOR Kanchan Delgado APRN, C.N.P., M.S.N. LAB BLOOD ADD-ON Performing Organization Address City/[facility]/ZIP Code Phon e Number [facility] LABOR[facility]IES - [address] [address] [facility] (ABNORMAL) Coagulation Factor II Activity Assay (05/10/2016 4:46 AM GR[employer] SUPERVISOR) Analysis Performed At [facility] logist [place] Signature Coag Factor II 35 (L) 75 - 145 % [facility] Assay, P [facility] Specimen Anatomical Collection Method Collection Time Receive d Time (Source) Location / / Volume Laterality 05/10/2016 4:46 AM 6 4:46 GR[employer]W SUPERVISOR AM [employer] SUPERVISOR Lance Delcid APRNN.P., M.S.N. LAB BLOOD ADD-ON Performing Organization Address City/[facility]/ZIP Code Phon e Number [facility] LAB[facility]IES - [address] [place] [address] [facility] (ABNORMAL) Antithrombin Antigen (05/10/2016 4:46 AM [employer] SUPERVISOR) Patholo gist Method Time Signature Antithrombin 65 (L) 80 - 130 [facility] Antigen, P % [facility] Specimen Anatomical Collection Method Collection Time Receive d Time (Source) Location / / Volume Laterality 05/10/2016 4:46 AM 6 4:46 GROUND [employer]W SUPERVISOR AM [employer] SUPERVISOR Kanchan Delgado APRN, C.N.P., M.S.N. LAB BLOOD ADD-ON Performing Organization Address City/State/ZIP Code Phon e Number [facility] LAB[facility]IES - [address] [place], [place] [address] [facility] Homocysteine, Total, Plasma (05/10/2016 4:46 AM [employer] SUPERVISOR) athologist Signature Homocysteine, 5 <=13 [facility] Total, P (Fasting) LABORATORIES - [place]/L [facility] Comment: ? ADDITIONAL INFORMATIO N ? Laboratory developed test. ? Specimen Anatomical Collection Method Collection Time Receive d Time (Source) Location / / Volume Laterality 05/10/2016 4:46 AM 6 4:46 [employer]W SUPERVISOR AM [employer] SUPERVISOR Kanchan Delgado APRN, C.N.P., M.S.N. LAB BLOOD NON ADD- ON Performing Organization Address City/[facility] Phon e Number [facility]IES - [address] [address] [facility] (ABNORMAL) PT (Prothrombin Time) with INR (05/10/2016 4:46 AM GR[employer] SUPERVISOR) [employer] Method Time Signature Prothrombin 18.6 (H) 9.5 - [facility] Time, P 13.8 SEC [facility] INR 1.6 0.8 - 1.2 [facility] Specimen Anatomical Collection Method Collection Time Receive d Time (Source) Location / / Volume Laterality 05/10/2016 4:46 AM 6 4:46 GR[employer]W SUPERVISOR AM [employer] SUPERVISOR Kanchan Delgado APRN, C.N.P., M.S.N. LAB BLOOD ADD-ON Performing Organization Address City/[facility] Phon e Number [facility] LABOR[facility]IES - [address] [address] [facility] (ABNORMAL) CBC without Differential (05/10/2016 4:46 AM GR[employer] SUPERVISOR) [facility] [employer] [facility] [employer] Method Time Signature Erythrocytes 3.15 (L) 3.90 - [facility] 5.03 LABORATORIES - X10(12)/L [facility] MCV 95.9 81.6 - [facility] 98.3 [place] [facility]IES [facility] RBC Distrib 14.4 11.9 - [facility] Width 15.5 % LABORATORIES - [facility] Platelet Count 124 (L) 150 - 450 [facility] X10(9)/L [facility] Leukocytes 6.6 3.5 - [facility] 10.5 LABORATORIES - X10(9)/L [facility] Hemoglobin 9.8 (L) 12.0 - [facility] 15.5 G/DL [facility] Hematocrit 30.2 (L) 34.9 - [facility] 44.5 % [facility] Specimen Anatomical Collection Method Collection Time Receive d Time (Source) Location / / Volume Laterality 05/10/2016 4:46 AM 6 4:46 [employer] SUPERVISOR AM [employer] SUPERVISOR Kanchan Delgado APRN, C.N.P., M.S.N. LAB BLOOD ADD-ON Performing Organization Address City/State/ZIP Code Phon e Number [facility] LAB[facility]IES - [address] [place], [place] [address] [facility] (ABNORMAL) Thrombophilia Profile (05/10/2016 4:46 AM GR[employer] SUPERVISOR) [facility] gist Method Time Signature Antithrombin 76 (L) 80 - 130 [facility] Activity, P % [facility] Protein S Ag, 25 (L) 50 - 160 [facility] Free, P % [facility] Activated 27 26 - 36 [facility] Partial SEC [facility] - Thrombopl Time, [facility] Thrombin Time 17 15 - 23 [facility] (Bovine), P SEC [facility] Prothrombin 18.3 (H) 10.3 - [facility] Time, P 12.8 SEC [facility] INR 1.7 [facility] PTNT Reviewed By . [facility] Comment: Jeremi Hoang M.D., Ph.D. PTNT Interpretation . [facility] Comment: This individual DOES NOT have the Prothr ombin [id number] mutation. Although the ? Prothrombin [id number] mutation is absent, the individual may have other genetic ? and environmental risk factors for throm bosis. Consider genetic consultation ? and counseling of potentially affected f [employer] members regarding laboratory ? testing. ? ADDITIONAL INFORMATIO N ? This test is a direct mutation analysis using PCR amplification, signal ? generation and release by cleavage of se quence specific alleles ([employer] Plus ? Chemistry, Hologic, [place]). ? APCRV Ratio 3.0 >or=2.3 [facility] LABORA TORIES - [facility] PUS Fibrinogen, P 364 200 - 430 MG/DL [facility] PUS Fibrinogen Equivalent 0.67 (H) 0.00 - 0.50 MCG/ML [facility] LABORATORIES Units (FEU) FEU - [facility] AMPUS D-Dimer Units (DDU) 335 (H) 0 - 250 [facility] C [facility] PUS Comment: Unit of measure: ng/mL D-Dimer Soluble Fibrin Monomer <8 0.0 - 7.9 MCG/ML [facility] S DRVVT Screen Ratio 0.9 0.0 - 1.1 RATIO [facility] S Protein C Activity, P 63 (L) 70 - 150 % [facility]IC [place] S Prothrombin [id number] Negative Negative [facility] - Mutation, B [facility] PUS Reviewed By: (Conor Foss . [facility] - Interp) [facility] Comment: Eva Mackenzie HX Interpretation (w/David) . [facility] Comment: Type of Study: ??Thrombophilia Profile 1 [...] ? individual DOES NOT have the prothrombin V27621G mutation. ? Negative results of testing for IgG and IgM anticardiolipin antibodies ? provide no evidence of antiphospholipid antibodies by this methodology. ? Specimen Anatomical Collection Method Collection Time Receive d Time (Source) Location / / Volume Laterality 05/10/2016 4:46 AM 6 4:46 [employer] SUPERVISOR AM [employer] SUPERVISOR Kanchan Delgado APRN, C.N.P., M.S.N. LAB BLOOD NON ADD- ON Performing Organization Address City/State/ZIP Code Phon e Number [facility] LABORATORIES - [address] [place], [place] [address] [facility] Phospholipid (Cardiolipin) Antibodies, IgG (05/10/2016 4:46 AM GROUND [employer] SUPERVISOR) [facility] gist Method Time Signature Phospholipid Ab <4.0 <10.0 [facility] IgG, S (Negative LABORATORIES - ) GPL [facility] Specimen Anatomical Collection Method Collection Time Receive d Time (Source) Location / / Volume Laterality 05/10/2016 4:46 AM 6 4:46 GR[employer]W SUPERVISOR AM [employer] SUPERVISOR Kanchan Delgado APRN, C.N.P., M.S.N. LAB BLOOD ADD-ON Performing Organization Address City/[facility] Code Phon e Number [facility] LABORATORIES - [address] [address] [facility] Electrolyte (Chem 4) Panel (05/10/2016 4:46 AM GROUND [employer] SUPERVISOR) Analysis Performed At Patho logist Time Signature Chloride, S 101 98 - 107 [facility] MMOL/L LABORATORIES - [facility] HX Bicarbonate, 24 22 - 29 [facility] P/S MMOL/L LABORATORIES - [facility] Sodium, S 136 135 - 145 [facility] MMOL/L LABORATORIES - [facility] Potassium, S 4.3 3.6 - 5.2 [facility] MMOL/L LABORATORIES - [facility] Creatinine 0.9 0.6 - 1.1 [facility] MG/DL LABORATORIES - [facility] eGFR >60 >60 [facility] Non-Black/Afric ML/MIN/BSA LABORATORIES - an Serbian [facility] eGFR-Black/Afri >60 >60 [facility] can Serbian ML/MIN/BSA LABORATORIES - [facility] BUN (Blood Urea 9 6 - 21 [facility] Nitrogen), S MG/DL LABORATORIES - [facility] Anion Gap 11 7 - 15 [facility] LABORATORIES - [facility] Glucose, S 104 70 - 140 [facility] MG/DL LABORATORIES - [facility] Specimen Anatomical Collection Method Collection Time Receive d Time (Source) Location / / Volume Laterality 05/10/2016 4:46 AM 6 4:46 [employer] SUPERVISOR AM [employer] SUPERVISOR Danie Delcid APRN.N.P., M.S.N. LAB BLOOD ADD-ON Performing Organization Address City/[facility] Phon e Number [facility] LABORATORIES - [address] [address] [facility] Phospholipid (Cardiolipin) Antibodies, IgA (05/10/2016 4:46 AM GR[employer] SUPERVISOR) Patholo gist Method Time Signature Phospholipid Ab <4.0 <10.0 [facility] IgA, S (Negative LABORATORIES - ) APL [facility] Specimen Anatomical Collection Method Collection Time Receive d Time (Source) Location / / Volume Laterality 05/10/2016 4:46 AM 6 4:46 GROUND [employer]W SUPERVISOR AM [employer] SUPERVISOR Kanchan Delgado APRN, C.N.P., M.S.N. LAB BLOOD ADD-ON Performing Organization Address City/[facility]/ZIP Code Phon e Number [facility] LABORATORIES - [address] [address] [facility] (ABNORMAL) Protein S Antigen, Total (05/10/2016 4:46 AM GR[employer] SUPERVISOR) Analysis Performed At Patho logist Time Signature Protein S Ag, 49 (L) 70 - 160 % [facility] Total, P LABORATORIES - [facility] Specimen Anatomical Collection Method Collection Time Receive d Time (Source) Location / / Volume Laterality 05/10/2016 4:46 AM 6 4:46 GR[employer]W SUPERVISOR AM [employer]W SUPERVISOR Kanchan Delgado APRN, C.N.P., M.S.N. LAB BLOOD NON ADD- ON Performing Organization Address City/[facility]/ZIP Code Phon e Number [facility] LABORATORIES - [address] [address] [facility] (ABNORMAL) PT (Prothrombin Time) with INR (05/09/2016 9:23 PM GR[employer] SUPERVISOR) Patholo gist Method Time Signature Prothrombin 18.1 (H) 9.5 - [facility] Time, P 13.8 SEC LABORATORIES - [facility] INR 1.5 0.8 - 1.2 [facility] LABORATORIES - [facility] Specimen Anatomical Collection Method Collection Time Receive d Time (Source) Location / / Volume Laterality 05/09/2016 9:23 PM 6 9:23 GR[employer] SUPERVISOR PM [employer] SUPERVISOR Lance Delcid APRNN.P., M.S.N. LAB BLOOD ADD-ON Performing Organization Address City/[facility]/ZIP Code Phon e Number [facility] LABORATORIES - [address] [address] [facility] FL Fluoro Less Than 1 Hour (05/09/2016 4:17 PM GR[employer] SUPERVISOR) Anatomical Region Laterality Modality Radiographic Imaging Specimen (Source) Anatomical Collection Method Collection Time Re ceived Time Location / / Volume Laterality 05/09/2016 4:17 PM [employer] SUPERVISOR Impressions 05/09/2016 4:21 PM [employer] SUPERVISOR Image intensifier used. Image(s) acquire d. Electronically signed by: ?? Alicia Kohli MD [id number] 09-May-2016 16:21 Narrative 05/09/2016 4:21 PM [employer] SUPERVISOR 09-May-2016 16:17:00 ??Exam: Fluoro Assistance less < [...] FLUOROSCOPY PROCEDURES Elbow, 1-2vws (05/09/2016 4:16 PM GR[employer] SUPERVISOR) Anatomical Region Laterality Modality Elbow N/A Radiographic Imaging Specimen (Source) Anatomical Collection Method Collection Time Re ceived Time Location / / Volume Laterality 05/09/2016 4:16 PM [employer] SUPERVISOR Impressions 05/09/2016 4:22 PM [employer] SUPERVISOR Interval plate and screw fixation of comminuted distal left humeral shaft fracture. Soft tissue gas likely postsurgical. Fracture lines are still visible. There is near anatomic orthodoxy. Soft tissu e swelling about the elbow. Electronically signed by: ?? Kennedy White MD [id number] 09-May-2016 16:22 Narrative 05/09/2016 4:22 PM [employer] SUPERVISOR 09-May-2016 16:16:00 ??Exam: L Elbow 2vw AP/Lat [...] are still visible. There is near anatomic orthodoxy. Soft tissue swelling about the elbow. Electronically signed by: Kennedy White MD [id number] 09-May-2016 16:22 Óscar Ortiz M.D. IMG DIAGNOSTIC IMAGING PROCE DURES (ABNORMAL) Hemoglobin (05/09/2016 3:50 PM GROUND [employer] SUPERVISOR) athologist Signature Hb 10.6 (L) 12.0 - [facility] 15.5 G/DL LABORATORIES - [facility] Comment: Drawn [place] Specimen Anatomical Collection Method Collection Time Receive d Time (Source) Location / / Volume Laterality 05/09/2016 3:50 PM 6 3:50 GROUND [employer]W SUPERVISOR PM [employer]W SUPERVISOR Narrative [facility] - 05/09/2016 4:04 PM GROUND [employer]W SUPERVISOR Drawn in [place] Historical Provider LAB BLOOD ADD-ON Performing Organization Address City/State/ZIP Code Phon e Number [facility] - [address] [address] [facility] CT 3D Requiring Independent Workstation (05/09/2016 8:35 AM GR[employer] SUPERVISOR) Anatomical Region Laterality Modality Abdomen, Pelvis Computed Tomography Specimen (Source) Anatomical Collection Method Collection Time Re ceived Time Location / / Volume Laterality 05/09/2016 8:35 AM GROUND [employer] SUPERVISOR Impressions 05/09/2016 8:43 AM GROUND [employer]W SUPERVISOR 1. Displaced, comminuted, intra-articula r fracture involving [...] by: ?? Marissa Choe ?? [id number] 09-May-20 16 08:43 Narrative 05/09/2016 8:43 AM [employer] SUPERVISOR 09-May-2016 08:35:00 ??Exam: 3D Requiring independent WS [...] Large elbow joint effusion. Electronically signed by: Marisas Choe MD [id number] 09-May-2016 08:43 Sridhar Mckinley M.D. IMG CT PROCEDURES ECG 12 Lead (05/09/2016 7:53 AM [facility]) Specimen (Source) Anatomical Collection Method Collection Time Re ceived Time Location / / Volume Laterality 05/09/2016 7:53 AM [facility] RADIOLOGY SYSTEM - 05/09/2016 9:00 AM [facility] 09May2016 07:53 VENTRICULAR RATE 67 Normal sinus rhythm Normal ECG When compared with ECG of 08-JUL-2013 10 :46, No significant change was found [id number]^MARLYN TSANG^PASCALE Procedure Note Pascale Durham M.D. - 09/14/2017Form atting of this note might be different from the original. 09May2016 07:53 VENTRICULAR RATE 67 Normal sinus rhythm Normal ECG When compared with ECG of 08-JUL-2013 10 :46, No significant change was found [id number]^MARLYN TSANG^PASCALE Marissa Woodson M.D. ECG ORDERABLES Performing Organization Address City/State/ZIP Code Phon e Number HX [facility] RADIOLOGY SYSTEM [address] [place] [address], [address] Upper Extremity without IV Contrast (05/09/2016 12:45 AM GROUND CREW SUPERVISOR) Anatomical Region Laterality Modality Upper Extremity Computed Tomography Specimen (Source) Anatomical Collection Method Collection Time Re ceived Time Location / / Volume Laterality 05/09/2016 12:45 AM GROUND CREW SUPERVISOR Impressions 05/09/2016 8:43 AM GROUND CREW SUPERVISOR 1. Displaced, comminuted, intra-articula r fracture involving [...] [id number] 09-May-20 08:43 Narrative 05/09/2016 8:43 AM GROUND CREW SUPERVISOR 09-May-2016 00:45:00 ??Exam: L CT EXT UPPER [...] CT PROCEDURES Elbow, 1-2vws (05/08/2016 7:47 PM GR[employer] SUPERVISOR) Anatomical Region Laterality Modality Elbow N/A Radiographic Imaging Specimen (Source) Anatomical Collection Method Collection Time Re ceived Time Location / / Volume Laterality 05/08/2016 7:47 PM GROUND CREW SUPERVISOR Impressions 05/09/2016 7:24 AM GROUND [employer]W SUPERVISOR Comminuted, predominantly oblique, anteriorly displaced fracture through the distal left humeral shaft. No definite intra-articular extension on these limited views. Approximately 4 cm overlap of the fracture fragments. Associated soft tissue swelling about the left elbow. Electronically signed by: ?? Lance Cheatham MD 09-May-2016 07:24 Narrative 05/09/2016 7:24 AM GROUND CREW SUPERVISOR 08-May-2016 19:47:00 ??Exam: L Elbow 2 vw [...] DX Shoulder 2+ Views (05/08/2016 7:41 PM GROUND CREW SUPERVISOR) Anatomical Region Laterality Modality Upper Extremity, Shoulder N/A Radiographic I maging Specimen (Source) Anatomical Collection Method Collection Time Re ceived Time Location / / Volume Laterality 05/08/2016 7:41 PM GROUND CREW SUPERVISOR Impressions 05/09/2016 7:17 AM GROUND CREW SUPERVISOR No shoulder fracture or dislocation identified on these limited views. If there is high clinical suspicion for fracture or dislocation, consider additional views. AC joint arthrosis. Electronically signed by: ?? Lance Cheatham MD 09-May-2016 07:17 Narrative 05/09/2016 7:17 AM GROUND CREW SUPERVISOR 08-May-2016 19:41:00 ??Exam: L Shoulder 2vw Indications: [...] by: Lance Cheatham MD 09-May-2016 07:17 Mercedes Hoang D.O. IMG DIAGNOSTIC IMAGING PROCE DURES documented in this encounter Visit Diagnoses Not on filedocumented in this encounter
--- OUTSIDE RECORDS SUMMARY | 2022-05-25 21:05 | XMS_ITS | Encounter Summary ---
:1975 Author Organization [facility] Address [address] [place] [address] Care Team Providers Name Role Phone Unavailable Primary Care Provider Unavailable Encounter Details Date Type Department Care Team Description 06/01/2016 Hospital Encounter [facility]X [facility] Marsha Henriquez M.D. [address] [place], [place] [address] (Wo rk) Social History [...] at Date Recorded Female 05/03/2022 7:07 PM UNIT EDUCATOR documented as of this encounter Last Filed Vital Signs Vital Sign Reading Time Taken Comments Blood Pressure - - Pulse - - Temperature - - Respiratory Rate - - Oxygen Saturation - - Inhaled Oxygen Concentration - - Weight - - Height 137 cm (4' 5.94) 06/01/2016 11:20 AM UNIT EDUCATOR Body Mass Index - - documented in [...] Penny/Phoenix/Nandini Team Nurse (RN); Sent: 06/02/2016 07:54:55 UNIT EDUCATOR Show up: 06/02/2016 07:55:00 UNIT EDUCATOR Subject: Results Notification please forward to inr clinic Results: Date Result Name Ind Value Ref Range 06/01/2016 11:28 PT (H) 17.3 second(s) (8.8 - 11.9) 06/01/2016 11:28 INR (H) 1.6 (0.9 - 1.2) Source: [facility] POWERCHART Document Id: [id number] documented in this encounter Plan of Treatment Upcoming Encounters Date Type Specialty Care Team Description 06/22/2022 Appointment Laboratory Medicine Rusty Vee M.D. [address] [place] [phone] 06/22/2022 Diagnostic Pulmonary Medicine Rusty Vee M.D. [address] [place] [phone] 06/22/2022 Diagnostic Pulmonary Medicine Rusty Vee M.D. [address] [place] [phone] 06/22/2022 Appointment Radiology Rusty Vee M.D. [address] [place] [phone] 06/23/2022 Clinical Communication Admitting/Central Scheduling 06/28/2022 Appointment Pulmonary Medicine Rusty Vee M.D. [address] [place] [phone] 06/28/2022 Appointment Pulmonary Rusty Mattson M.D. [address] [place] [phone] documented as of this encounter Procedures Procedure Name Priority Date/Time Associated Comments Diagnosis PROTHROMBIN TIME Routine 06/01/2016 11:28 Results for this (PT), P AM UNIT EDUCATOR procedure are i n the results section. documented in this encounter Results (ABNORMAL) PT (Prothrombin Time) with INR (06/01/2016 11:28 AM UNIT EDUCATOR) [facility] Method Time Signature Prothrombin 17.3 (H) 8.8 [...] / Volume Laterality Blood 06/01/2016 11:28 AM UNIT EDUCATOR Tasha Henriquez M.D. LAB BLOOD ADD-ON Performing Organization Address City/State/ZIP Code Phon e Number POWERCHART documented in this encounter Visit Diagnoses Not on filedocumented in this encounter
--- OUTSIDE RECORDS SUMMARY | 2022-05-25 21:05 | XMS_ITS | Encounter Summary ---
:1975 Author Organization [facility] Address [address] [place] [address] Care Team Providers Name Role Phone Unavailable Primary Care Provider Unavailable Encounter Details Date Type Department Care Team Description 06/10/2016 Hospital Encounter HX [facility] Marsha Garibay M.D. [address] [place], [place] [address] (Wo rk) Social History [...] More than 4 times per year 05/04/2022 [employer] services? Do you belong to any clubs [...] at Date Recorded Female 05/03/2022 7:07 PM INVESTOR documented as of this encounter Last Filed Vital Signs Vital Sign Reading Time Taken Comments Blood Pressure - - Pulse - - Temperature - - Respiratory Rate - - Oxygen Saturation - - Inhaled Oxygen Concentration - - Weight - - Height 137 cm (4' 5.94) 06/10/2016 9:41 AM INVESTOR Body Mass Index - - documented in [...] Appointment Laboratory Medicine Rusty Vee M.D. [address] [place] [phone] 06/22/2022 Diagnostic Pulmonary Medicine Rusty Vee M.D. [address] [place] [phone] 06/22/2022 Diagnostic Pulmonary Medicine Rusty Vee M.D. [address] [place] [phone] 06/22/2022 Appointment Radiology Rusty Vee M.D. [address] [place] [phone] 06/23/2022 Clinical Communication Admitting/Central Scheduling 06/28/2022 Appointment Pulmonary Rusty Mattson M.D. [address] [place] [phone] 06/28/2022 Appointment Pulmonary Medicine Rusty Vee M.D. [address] [place] [phone] documented as of this encounter Procedures Procedure Name Priority Date/Time Associated Comments Diagnosis PROTHROMBIN TIME Routine 06/10/2016 9:50 AM Resul ts for this (PT), P INVESTOR procedure are i n the results section. documented in this encounter Results (ABNORMAL) PT (Prothrombin Time) with INR (06/10/2016 9:50 AM INVESTOR) [facility] Method Time Signature Prothrombin 16.7 (H) [...] / Volume Laterality Blood 06/10/2016 9:50 AM INVESTOR Sridhar Garibay M.D. LAB BLOOD ADD-ON Performing Organization Address City/State/ZIP Code Phon e Number POWERCHART documented in this encounter Visit Diagnoses Not on filedocumented in this encounter
--- OUTSIDE RECORDS SUMMARY | 2022-05-25 21:05 | XMS_ITS | Encounter Summary ---
:1975 Author Organization [facility] Address [address] [place] [address] Care Team Providers Name Role Phone Unavailable Primary Care Provider Unavailable Encounter Details Date Type Department Care Team Description 05/24/2016 Hospital Encounter HX [facility] Marsha Garibay M.D. [address] [place], [place] [address] (Wo rk) Social History [...] at Date Recorded Female 05/03/2022 7:07 PM MAINFRAME SYSTEMS ENGINEER documented as of this encounter Last Filed Vital Signs Vital Sign Reading Time Taken Comments Blood Pressure - - Pulse - - Temperature - - Respiratory Rate - - Oxygen Saturation - - Inhaled Oxygen Concentration - - Weight - - Height 137 cm (4' 5.94) 05/24/2016 9:05 AM MAINFRAME SYSTEMS ENGINEER Body Mass Index - - documented [...] Laboratory Medicine Rusty Vee M.D. [address] [place] [phone] 06/22/2022 Diagnostic Pulmonary Medicine Rusty Vee M.D. [address] [place] [phone] 06/22/2022 Diagnostic Pulmonary Medicine Rusty Vee M.D. [address] [place] [phone] 06/22/2022 Appointment Radiology Rusty Vee M.D. [address] [place] [phone] 06/23/2022 Clinical Communication Admitting/Central Scheduling 06/28/2022 Appointment Pulmonary Rusty Mattson M.D. [address] [place] [phone] 06/28/2022 Appointment Pulmonary Medicine Rusty Vee M.D. [address] [place] [phone] documented as of this encounter Procedures Procedure Name Priority Date/Time Associated Comments Diagnosis PROTHROMBIN TIME Routine 05/24/2016 9:10 AM Resul ts for this (PT), P MAINFRAME SYSTEMS ENGINEER procedure are i n the results section. documented in this encounter Results (ABNORMAL) PT (Prothrombin Time) with INR (05/24/2016 9:10 AM MAINFRAME SYSTEMS ENGINEER) [facility] Method Time Signature Prothrombin 19.0 (H) 8.8 [...] / Volume Laterality Blood 05/24/2016 9:10 AM MAINFRAME SYSTEMS ENGINEER Sridhar Garibay M.D. LAB BLOOD ADD-ON Performing Organization Address City/State/ZIP Code Phon e Number POWERCHART documented in this encounter Visit Diagnoses Not on filedocumented in this encounter
--- OUTSIDE RECORDS SUMMARY | 2022-05-25 21:05 | XMS_ITS | Encounter Summary ---
:1975 Author Organization [facility] Address [address] [place] [address] Care Team Providers Name Role Phone Unavailable [...] at Date Recorded Female 05/03/2022 7:07 PM SALESPERSON [place] [employer] documented as of this encounter Medications at [...] Laboratory Medicine Rusty Vee M.D. [address] [place] [phone] 06/22/2022 Diagnostic Pulmonary Medicine Rusty Vee M.D. [address] [place] [phone] 06/22/2022 Diagnostic Pulmonary Medicine Rusty Vee M.D. [address] [place] [phone] 06/22/2022 Appointment Radiology Rusty Vee M.D. [address] [place] [phone] 06/23/2022 Clinical Communication Admitting/Central Scheduling 06/28/2022 Appointment Pulmonary Medicine Rusty Vee M.D. [address] [place] [phone] 06/28/2022 Appointment Pulmonary Medicine Rusty Vee M.D. [address] [place] [phone] documented as of this encounter Procedures Procedure Name Priority Date/Time Associated Comments Diagnosis PROTHROMBIN TIME Routine 05/08/2016 11:31 Results for this (PT), P PM SALESPERSON [employer] procedure are i n the results section. CBC WITH Routine 05/08/2016 11:31 Results for this DIFFERENTIAL, B PM SALESPERSON [employer] procedure ar e in the results section. BASIC METABOLIC Routine 05/08/2016 11:31 Results for this PANEL, S/P PM SALESPERSON [employer] [employer] procedure are i n the results section. documented in this encounter Results (ABNORMAL) CBC with Differential (05/08/2016 11:31 PM SALESPERSON [employer]) [facility] Method Time Signature Hemoglobin 11.5 (L) 12.0 - [facility] 15.5 G/DL LAB[facility]ATORIES - [facility] Hematocrit 35.5 34.9 - [facility] 44.5 % LABORATORIES - [facility] Leukocytes 5.8 3.5 - [facility] 10.5 LABORATORIES - X10(9)/L [facility] Neutrophils 4.32 1.70 - [facility] 7.00 LABORATORIES - X10(9)/L [facility] Lymphocytes 1.05 0.90 - [facility] 2.90 LABORATORIES - X10(9)/L [facility] Monocytes 0.42 0.30 - [facility] 0.90 LABORATORIES - X10(9)/L [facility] Erythrocytes 3.66 (L) 3.90 - [facility] 5.03 LABORATORIES - X10(12)/L [facility] MCV 97.0 81.6 - [facility] 98.3 FL LABORATORIES - [facility] RBC Distrib 13.9 11.9 - [facility] Width 15.5 % [facility]IES - [facility] Platelet Count 130 (L) 150 - 450 [facility] X10(9)/L [facility] - [facility] Eosinophils 0.03 (L) 0.05 - [facility] 0.50 LABORATORIES - X10(9)/L [facility] Basophils 0.01 0.00 - [facility] 0.30 LABORATORIES - X10(9)/L [facility] Specimen Anatomical Collection Method Collection Time Receive d Time (Source) Location / / Volume Laterality 05/08/2016 11:31 05/08/2016 PM SALESPERSON [employer] 11:31 PM SALESPERSON [employer] [employer] Sridhar Mckinley M.D. LAB BLOOD ADD-ON Performing Organization Address City/State/ZIP Code Phon e Number [facility]IES - [address] [place], [place] [address] [facility] (ABNORMAL) BMP (Basic Metabolic Panel) (05/08/2016 11:31 PM SALESPERSON [employer] [employer]) [facility] Method Time Signature Chloride, S 109 (H) 98 - 107 [facility] MMOL/L [facility] - [facility] Creatinine 0.9 0.6 - 1.1 [facility] MG/DL [facility] - [facility] BUN (Blood Urea 11 6 - 21 [facility] Nitrogen), S MG/DL [facility] - [facility] HX Bicarbonate, 27 22 - 29 [facility] P/S MMOL/L [facility] - [facility] Sodium, P 144 135 - 145 [facility] MMOL/L [facility] - [facility] Potassium, P 4.3 3.6 - 5.2 [facility] MMOL/L [facility] - [facility] eGFR >60 >60 [facility] Non-Black/Afric ML/MIN/BS LABORATORIES - an Danish A [facility] eGFR-Black/Afri >60 >60 [facility] can Danish ML/MIN/BS LABORATORIES - A [facility] Glucose, S 105 70 - 140 [facility] MG/DL [facility] - [facility] Anion Gap 8 7 - 15 [facility] - [facility] Specimen Anatomical Collection Method Collection Time Receive d Time (Source) Location / / Volume Laterality 05/08/2016 11:31 05/08/2016 PM SALESPERSON [employer] 11:31 PM SALESPERSON [employer] Sridhar Mckinley M.D. LAB BLOOD ADD-ON Performing Organization Address City/State/ZIP Code Phon e Number [facility]IES - [address] (ABNORMAL) PT (Prothrombin Time) with INR (05/08/2016 11:31 PM SALESPERSON [employer] [employer]) [facility] gist Method Time Signature Prothrombin 17.5 (H) 9.5 - [facility] Time, P 13.8 SEC [facility] INR 1.6 0.8 - 1.2 [facility] - [facility] Specimen Anatomical Collection Method Collection Time Receive d Time (Source) Location / / Volume Laterality 05/08/2016 11:31 05/08/2016 PM SALESPERSON [employer] 11:31 PM SALESPERSON [employer] Sridhar Mckinley M.D. LAB BLOOD ADD-ON Performing Organization Address City/State/ZIP Code Phon e Number [facility] - [address] [place] [address] [facility] documented in this encounter Visit Diagnoses Not on filedocumented in this encounter
--- OUTSIDE RECORDS SUMMARY | 2022-05-25 21:05 | XMS_ITS | Encounter Summary ---
:1975 Author Organization [facility] Address [address] [place] [address] Care Team Providers Name Role Phone Unavailable Primary Care Provider Unavailable Encounter Details Date Type Department Care Team Description 06/06/2016 Hospital Encounter [facility]X [facility] Marsha Garibay M.D. [address] [place], [place] [address] (Wo rk) Social History [...] at Date Recorded Female 05/03/2022 7:07 PM NEW ORDER CLERK documented as of this encounter Last Filed Vital Signs Vital Sign Reading Time Taken Comments Blood Pressure - - Pulse - - Temperature - - Respiratory Rate - - Oxygen Saturation - - Inhaled Oxygen Concentration - - Weight - - Height 137 cm (4' 5.94) 06/06/2016 9:38 AM NEW ORDER CLERK Body Mass Index - - documented in [...] Laboratory Medicine Rusty Vee M.D. [address] [place] [phone] 06/22/2022 Diagnostic Pulmonary Medicine Rusty Vee M.D. [address] [place] [phone] 06/22/2022 Diagnostic Pulmonary Medicine Rusty Vee M.D. [address] [place] [phone] 06/22/2022 Appointment Radiology Rusty Vee M.D. [address] [place] [phone] 06/23/2022 Clinical Communication Admitting/Central Scheduling 06/28/2022 Appointment Pulmonary Rusty Mattson M.D. [address] [place] [phone] 06/28/2022 Appointment Pulmonary Medicine Rusty Vee M.D. [address] [place] [phone] documented as of this encounter Procedures Procedure Name Priority Date/Time Associated Comments Diagnosis PROTHROMBIN TIME Routine 06/06/2016 9:49 AM Resul ts for this (PT), P NEW ORDER CLERK procedure are i n the results section. documented in this encounter Results (ABNORMAL) PT (Prothrombin Time) with INR (06/06/2016 9:49 AM NEW ORDER CLERK) [facility] Method Time Signature Prothrombin 14.1 (H) [...] / Volume Laterality Blood 06/06/2016 9:49 AM NEW ORDER CLERK Sridhar Garibay M.D. LAB BLOOD ADD-ON Performing Organization Address City/State/ZIP Code Phon e Number POWERCHART documented in this encounter Visit Diagnoses Not on filedocumented in this encounter
--- OUTSIDE RECORDS SUMMARY | 2022-05-25 21:05 | XMS_ITS | Encounter Summary ---
:1975 Author Organization [facility] Address [address] [place] [address] Care Team Providers Name Role Phone Unavailable Primary Care Provider Unavailable Encounter Details Date Type Department Care Team Description 04/28/2016 Hospital Encounter [facility] Marsha Henriquez M.D. [address] [place], [place] [address] (Wo rk) Social History [...] or relatives? How often do you attend [employer]aritan or More than 4 times per year 05/04/2022 latter day services? Do you belong to any clubs or Yes 05/04/2022 organizations such as samaritan groups, unions, fraternal or athletic groups, or [...] Date Recorded Female 05/03/2022 7:07 PM SENIOR GROUP MANAGER documented as of this encounter Last Filed [...] Notes Miscellaneous - Meli Campo, R.N. - 04/28/2016 11:25 AM CDT Anticoagulation Patient [...] completed by : MELI Vidal RN - 04/28/2016 11:25 CDT MELI CAMPO [...] : 04/17/2014 CDT 04/24/2014 CDT 05/01/2014 SENIOR GROUP MANAGER 05/15/2014 SENIOR GROUP MANAGER Location of INR sample : Lab [...] will trynoted dose called to mom Fabiola [phone] called to Fabiola/no changes Called to mother/Fabiola, not awareof any changes Recommend Recheck : One week One week Two weeks Two weeks Plan completed by : MELI LEON RN - 04/28/2016 11:25 CDT MELI CAMPO RN - 04/28/2016 11:25 MELI ESQUIVEL - 04/28/2016 11:25 CDT MELI CAMPO RN - 04/28/2016 11:25 CDT Date : 06/03/2014 SENIOR GROUP MANAGER 06/05/2014 SENIOR GROUP MANAGER 06/10/2014 SENIOR GROUP MANAGER 06/11/2014 SENIOR GROUP MANAGER Location of INR sample : Lab [...] Called motherFabiola. Hue will be staying in [place] 2wks post-surgery & have INR drawn there. [...] lovenox tomorrow AM as ordered. INR in [place] for next several weeks as pt will be recovering there. Recommend Recheck : Other: depending on Dr. Henriquez's preop. Other: 06/18 Other: 06/13/14 Plan completed by : MELI ROSADO RN - 04/28/2016 11:25 CDMELI CHERRY RN - 04/28/2016 11:25 CDT MELI CAMPON - 04/28/2016 11:25 CDT MELI CAMPO RN - 04/28/2016 11:25 CDT Date : 06/14/2014 SENIOR GROUP MANAGER 06/14/2014 SENIOR GROUP MANAGER 06/16/2014 SENIOR GROUP MANAGER 06/23/2014 SENIOR GROUP MANAGER Location of INR sample : Clinic [...] Warfarin Dose : 20 20 Comment : [place] jenniffer called with INR result from 06/13, reported they left a message with Dr. Henriquez and hadn't heard back, spoke with mother, Fabiola, and gave doses, continue Lovenox and repeat INR 06/16, message left with INR clinic in to contact Please contact [place] lab on 06/16 for result and may call Fabiola at [phone] with instructions call to Fabiola/will stop Lovenox [...] 04/28/2016 11:25 CDT Date : 07/10/2014 SENIOR GROUP MANAGER 07/17/2014 SENIOR GROUP MANAGER 07/31/2014 SENIOR GROUP MANAGER 09/11/2014 CDT Location of INR sample [...] CDT Date : 04/09/2015 CDT 05/07/2015 SENIOR GROUP MANAGER 06/04/2015 SENIOR GROUP MANAGER 07/02/2015 SENIOR GROUP MANAGER Location of INR sample : Lab [...] 04/28/2016 11:25 CDT Date : 08/06/2015 SENIOR GROUP MANAGER 09/17/2015 CDT 10/29/2015 CDT 11/12/2015 CDT [...] Brizuela, Pharm.D. BAUDILIO, PharmD Eliseo Quezada, PharmD. MELI CAMPO RN - 04/28/2016 11:25 CDT [...] Eliseo Quezada, PharmD. MELI CAMPO RN - 04/28/2016 11:25 CDT [...] : Pt being discharged on Bactrim. Will brick picker rx for 2 mg tabs On bactrim 2 days left, has f/u in [place] on Monday. Pt mother states plan to return to [facility] on 03/06. next f/u will be in [facility]. 2mg TuWTh Rev'd with Jelly/Pharmacist,called to [...] : MELI Bone RN, RN RN - 04/28/2016 11:25 CDT MELI [...] pt will be staying with sister in [facility] next week she will have INR drawn in [place] again called to Fabiola/pt to do next INR at on a ./no changes called to Fabiola/no changes called to Fabiola/Davidno changes/missed doses Recommend Recheck : Other: 03/16/16 Other: 03/31/16(2 weeks) One month Two weeks Plan completed by : JENIFER OZZY ly NB MELI CAMPO RN - 04/28/2016 11:25 CDT [...] CAMPO RN - 04/28/2016 11:25 CDT Source: [facility] POWERCHART Document Id: [id number] Miscellaneous - Khadar Banda R.N. - 04/28/2016 10:18 AM CDT Results Notification From: KHADAR BANDA RN ( Anticoagulation Nurse) To: Anticoagulation Nurse; Sent: 04/28/2016 10:18:09 CDT Show up: 04/28/2016 10:19:00 CDT Subject: Results Notification Results: Date Result Name Value Ref Range 04/28/2016 07:55 PT 17.7 second(s) (8.8 - 11.9) 04/28/2016 07:55 INR 1.7 (0.9 - 1.2) Source: [facility] POWERCHART Document Id: [id number] Electronically signed by Conversion, [facility] High Rigger [id number] at 11/20/2016 8:14 AM CDT documented in this encounter Plan of Treatment Upcoming Encounters Date Type Specialty Care Team Description 06/22/2022 Appointment Laboratory Medicine Rusty Vee M.D. [address] [place] [phone] 06/22/2022 Diagnostic Pulmonary Medicine Rusty Vee M.D. [address] [place] [phone] 06/22/2022 Diagnostic Pulmonary Medicine Rusty Vee M.D. [address] [place] [phone] 06/22/2022 Appointment Radiology Rusty Vee M.D. [address] [place] [phone] 06/23/2022 Clinical Communication Admitting/Central Scheduling 06/28/2022 Appointment Pulmonary Medicine Rusty Vee M.D. [address] [place] [phone] 06/28/2022 Appointment Pulmonary Medicine Rusty Vee M.D. [address] [place] [phone] documented as of this encounter Procedures Procedure Name Priority Date/Time Associated Comments Diagnosis PROTHROMBIN TIME Routine 04/28/2016 7:55 AM Resul ts for this (PT), P CDT procedure are i n the results section. documented in this encounter Results (ABNORMAL) PT (Prothrombin Time) with INR (04/28/2016 7:55 AM CDT) [facility] Method Time Signature Prothrombin 17.7 (H) 8.8 [...]
--- OUTSIDE RECORDS SUMMARY | 2022-05-25 21:05 | XMS_ITS | Encounter Summary ---
:1975 Author Organization [facility] Address [address] [place] [address] Care Team Providers Name Role Phone Unavailable Primary Care Provider Unavailable Encounter Details Date Type Department Care Team Description 05/17/2016 Hospital Encounter HX [facility] Marsha Henriquez M.D. [address] [place], [place] [address] (Wo rk) Social History [...] Date Recorded Female 05/03/2022 7:07 PM MANAGER ORACLE documented as of this encounter Last Filed Vital Signs Vital Sign Reading Time Taken Comments Blood Pressure - - Pulse - - Temperature - - Respiratory Rate - - Oxygen Saturation - - Inhaled Oxygen Concentration - - Weight - - Height 137 cm (4' 5.94) 05/17/2016 11:00 AM MANAGER ORACLE Body Mass Index - - documented in [...] Anticoagulation Patient Intake Entered On: 05/17/2016 16:56 MANAGER ORACLE Performed On: 05/17/2016 16:54 MANAGER ORACLE by WALI MCCLELLAN RN Plan INR goal range : 2.0 - 3.0 Duration of Therapy : Lifelong Tablet Size : 2 mg, 5 mg WALI MCCLELLAN RN - 05/17/2016 16:54 MANAGER ORACLE Anticoagulation Management Plan Grid Date : 09/05/2013 [...] completed by : WALI Tracy RN - 05/17/2016 16:54 MANAGER ORACLE WALI MCCLELLAN RN - 05/17/2016 16:54 WALI REYNOLDS RN - 05/17/2016 16:54 WALI REYNOLDS RN - 05/17/2016 16:54 MANAGER ORACLE Date : 12/26/2013 CDT 01/30/2014 CDT 03/06/2014 [...] : WALI Davidson RN - 05/17/2016 16:54 WALI REYNOLDS RN - 05/17/2016 16:54 WALI REYNOLDS RN - 05/17/2016 16:54 WALI REYNOLDS RN - 05/17/2016 16:54 MANAGER ORACLE Date : 03/20/2014 CDT 03/27/2014 CDT 04/10/2014 [...] lackey LM /pharmacy WALI MCCLELLAN RN - 05/17/2016 16:54 MANAGER ORACLE WALI MCCLELLAN RN - 05/17/2016 16:54 MANAGER ORACLE WALI MCCLELLAN RN - 05/17/2016 16:54 MANAGER ORACLE WALI MCCLELLAN RN - 05/17/2016 16:54 MANAGER ORACLE Date : 04/17/2014 CDT 04/24/2014 CDT 05/01/2014 MANAGER ORACLE 05/15/2014 MANAGER ORACLE Location of INR sample : Lab Lab [...] will trynoted dose called to mom Fabiola [phone] called to Fabiola/no changes Called to mother/Fabiola, not awareof any changes Recommend Recheck : One week One week Two weeks Two weeks Plan completed by : WALI CHOI RN - 05/17/2016 16:54 MANAGER ORACLE WALI MCCLELLAN RN - 05/17/2016 16:54 MANAGER ORACLE WALI MCCLELLAN RN - 05/17/2016 16:54 MANAGER ORACLE WALI MCCLELLAN RN - 05/17/2016 16:54 MANAGER ORACLE Date : 06/03/2014 MANAGER ORACLE 06/05/2014 MANAGER ORACLE 06/10/2014 MANAGER ORACLE 06/11/2014 MANAGER ORACLE Location of INR sample : Lab Type [...] Called motherFabiola. Hue will be staying in [facility] 2wks post-surgery & have INR drawn there. [...] lovenox tomorrow AM as ordered. INR in [facility] for next several weeks as pt will be recovering there. Recommend Recheck : Other: depending on Dr. Henriquez's preop. Other: 06/18 Other: 06/13/14 Plan completed by : WALI TYLER RN - 05/17/2016 16:54 MANAGER ORACLE WALI MCCLELLAN RN - 05/17/2016 16:54 MANAGER ORACLE WALI MCCLELLAN RN - 05/17/2016 16:54 WALI REYNOLDS RN - 05/17/2016 16:54 MANAGER ORACLE Date : 06/14/2014 MANAGER ORACLE 06/14/2014 MANAGER ORACLE 06/16/2014 MANAGER ORACLE 06/23/2014 MANAGER ORACLE Location of INR sample : Clinic Lab [...] reported they left a message with Dr. Henirquez and hadn't heard back, spoke with mother, Fabiola, and gave doses, continue Lovenox and repeat INR 06/16, message left with INR clinic in [place] to contact [facility] Please contact [facility] on 06/16 for result and may call Fabiola at [phone] with instructions call to Fabiola/will stop Lovenox [...] WALI Steven LM RN - 05/17/2016 16:54 MANAGER ORACLE WALI MCCLELLAN RN - 05/17/2016 16:54 MANAGER ORACLE WALI MCCLELLAN RN - 05/17/2016 16:54 MANAGER ORACLE WALI MCCLELLAN RN - 05/17/2016 16:54 MANAGER ORACLE Date : 07/10/2014 MANAGER ORACLE 07/17/2014 MANAGER ORACLE 07/31/2014 MANAGER ORACLE 09/11/2014 CDT Location of INR sample : [...] darya JK ly WALI ROLDAN RN - 05/17/2016 16:54 MANAGER ORACLE WALI MCCLELLAN RN - 05/17/2016 16:54 MANAGER ORACLE WALI MCCLELLAN RN - 05/17/2016 16:54 MANAGER ORACLE WALI MCCLELLAN RN - 05/17/2016 16:54 MANAGER ORACLE Date : 09/12/2014 CDT 09/25/2014 CDT 10/02/2014 [...] GUADALUPE lackey JM WALI Ervin RN - 05/17/2016 16:54 MANAGER ORACLE WALI MCCLELLAN RN - 05/17/2016 16:54 MANAGER ORACLE WALI MCCLELLAN RN - 05/17/2016 16:54 WALI REYNOLDS RN - 05/17/2016 16:54 MANAGER ORACLE Date : 10/23/2014 CDT 11/13/2014 CDT 11/20/2014 [...] : WALI Skinner RN - 05/17/2016 16:54 MANAGER ORACLE WALI MCCLELLAN RN - 05/17/2016 16:54 MANAGER ORACLE WALI MCCLELLAN RN - 05/17/2016 16:54 MANAGER ORACLE WALI MCCLELLAN RN - 05/17/2016 16:54 MANAGER ORACLE Date : 12/04/2014 CDT 12/18/2014 CDT 01/15/2015 [...] completed by : WALI Cabrera RN - 05/17/2016 16:54 MANAGER ORACLE WALI MCCLELLAN RN - 05/17/2016 16:54 WALI REYNOLDS RN - 05/17/2016 16:54 MANAGER ORACLE WALI MCCLELLAN RN - 05/17/2016 16:54 MANAGER ORACLE Date : 02/05/2015 CDT 02/26/2015 CDT 03/05/2015 [...] : WALI LAWRENCE RN - 05/17/2016 16:54 MANAGER ORACLE WALI MCCLELLAN RN - 05/17/2016 16:54 MANAGER ORACLE WALI MCCLELLAN RN - 05/17/2016 16:54 MANAGER ORACLE WALI MCCLELLAN RN - 05/17/2016 16:54 MANAGER ORACLE Date : 04/09/2015 CDT 05/07/2015 MANAGER ORACLE 06/04/2015 MANAGER ORACLE 07/02/2015 MANAGER ORACLE Location of INR sample : Lab Lab [...] changes on Mom/Fabiola's identifiedVM, Orders called to Mom/Fbaiola, no changes Orders called to Fabiola/mother. No changes. Recommend Recheck : One month One month One month Other: 5 weeks Plan completed by : WALI Nelson RN - 05/17/2016 16:54 MANAGER ORACLE WALI MCCLELLAN RN - 05/17/2016 16:54 WALI REYNOLDS RN - 05/17/2016 16:54 WALI REYNOLDS RN - 05/17/2016 16:54 MANAGER ORACLE Date : 08/06/2015 MANAGER ORACLE 09/17/2015 CDT 10/29/2015 CDT 11/12/2015 CDT Location [...] : WALI Toussaint RN - 05/17/2016 16:54 WALI REYNOLDS RN - 05/17/2016 16:54 WALI REYNOLDS RN - 05/17/2016 16:54 WALI REYNOLDS RN - 05/17/2016 16:54 MANAGER ORACLE Date : 11/19/2015 CDT 12/03/2015 CDT 12/31/2015 [...] : WALI Will RN - 05/17/2016 16:54 MANAGER ORACLE WALI MCCLELLAN RN - 05/17/2016 16:54 MANAGER ORACLE WALI MCCLELLAN RN - 05/17/2016 16:54 [facility] WALI MCCLELLAN RN - 05/17/2016 16:54 MANAGER ORACLE Date : 02/19/2016 CDT 02/20/2016 CDT 02/21/2016 CDT 02/22/2016 CDT Location of INR sample : [facility] Type of Sample : Venous Venous [...] Eliseo Quezada PharmD. WALI MCCLELLAN RN - 05/17/2016 16:54 [facility] WALI MCCLELLAN RN - 05/17/2016 16:54 [facility] WALI MCCLELLAN RN - 05/17/2016 16:54 [facility] WAIL MCCLELLAN RN - 05/17/2016 16:54 MANAGER ORACLE Date : 02/23/2016 CDT 02/24/2016 CDT 02/25/2016 [...] Eliseo Quezada, PharmValentina. Eliseo Quezada, PharmRohit Brizuela, Pharm.DRea MachadoD. WALI MCCLELLAN RN - 05/17/2016 16:54 MANAGER ORACLE WALI MCCLELLAN RN - 05/17/2016 16:54 MANAGER ORACLE WALI MCCLELLAN RN - 05/17/2016 16:54 WALI REYNOLDS RN - 05/17/2016 16:54 MANAGER ORACLE Date : 02/27/2016 CDT 03/01/2016 CDT 03/04/2016 [...] to return to [facility] on 03/06. next f/u will be in [facility]. 2mg TuWTh Rev'd with Jelly/Pharmacist,called to mom/Fabiola [...] Cartagena RN, RN, RN - 05/17/2016 16:54 MANAGER ORACLE WALI MCCLELLAN RN - 05/17/2016 16:54 MANAGER ORACLE WALI MCCLELLAN RN - 05/17/2016 16:54 WALI REYNOLDS RN - 05/17/2016 16:54 MANAGER ORACLE Date : 03/11/2016 CDT 03/16/2016 CDT 03/31/2016 [...] completed by : WALI Segura RN - 05/17/2016 16:54 MANAGER ORACLE WALI MCCLELLAN RN - 05/17/2016 16:54 MANAGER ORACLE WALI MCCLELLAN RN - 05/17/2016 16:54 MANAGER ORACLE WALI MCCLELLAN RN - 05/17/2016 16:54 MANAGER ORACLE Date : 05/11/2016 MANAGER ORACLE 05/12/2016 MANAGER ORACLE 05/17/2016 MANAGER ORACLE Location of INR sample : Other: Drawn in [facility] Other: [facility] Type of Sample : INR Result : 1.6 2.4 Warfarin Dose : 2.5mg daily 2.5mg daily Total Weekly Warfarin Dose : 17.5 Comment : Per Mom/Fabiola, pt disch from [facility] today, fell & fx left humerus 05/08, [...] : WALI BLANTON RN - 05/17/2016 16:54 MANAGER ORACLE WALI MCCLELLAN RN - 05/17/2016 16:54 MANAGER ORACLE WALI MCCLELLAN RN - 05/17/2016 16:54 MANAGER ORACLE Anticoagulation Assessment / History Visit : Phone management Plan of Care Date : 01/29/2008 CDT Primary Physician Anticoagulation : TASHA HENRIQUEZ MD 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 : DVT Lower, Other: Deep Phlebitis-Leg NEC CHADS2 Score Date : 09/05/2013 CDT WALI MCCLELLAN RN - 05/17/2016 16:54 MANAGER ORACLE Changes / Problems Changes/Problems Since Last Visit : None Been Scheduled For : None Missed Coumadin Doses : None Change In Intake : None Change In Medication : None Have You Had : None Plans to Travel : No WALI MCCLELLAN RN - 05/17/2016 16:54 MANAGER ORACLE [email or web address] Document Id: [id number] MANAGER ORACLE![id number] GER ORACLE documented in this encounter Plan of Treatment Upcoming Encounters Date Type Specialty Care Team Description 06/22/2022 Appointment Laboratory Medicine Rusty Vee M.D. [address] [place] [phone] 06/22/2022 Diagnostic Pulmonary Medicine Rusty Vee M.D. [address] [place] [phone] 06/22/2022 Diagnostic Pulmonary Medicine Rusty Vee M.D. [address] [place] [phone] 06/22/2022 Appointment Radiology Rusty Vee M.D. [address] [place] [phone] 06/23/2022 Clinical Communication Admitting/Central Scheduling 06/28/2022 Appointment Pulmonary Rusty Mattson M.D. [address] [place] [phone] 06/28/2022 Appointment Pulmonary Medicine Rusty Vee M.D. [address] [place] [phone] documented as of this encounter Procedures Procedure Name Priority Date/Time Associated Comments Diagnosis PROTHROMBIN TIME Routine 05/17/2016 11:05 Results for this (PT), P AM MANAGER ORACLE procedure are i n the results section. documented in this encounter Results (ABNORMAL) PT (Prothrombin Time) with INR (05/17/2016 11:05 AM MANAGER ORACLE) [facility] Method Time Signature Prothrombin 26.6 (H) [...] / Volume Laterality Blood 05/17/2016 11:05 AM MANAGER ORACLE Tasha Henriquez M.D. LAB BLOOD ADD-ON Performing Organization Address City/State/ZIP Code Phon e Number POWERCHART documented in this encounter Visit Diagnoses Not on filedocumented in this encounter
--- OUTSIDE RECORDS SUMMARY | 2022-05-25 21:05 | XMS_ITS | Encounter Summary ---
:1975 Author Organization [facility] Address [address] [place] [address] Care Team Providers Name Role Phone Unavailable Primary Care Provider Unavailable Encounter Details Date Type Department Care Team Description 05/12/2016 Hospital Encounter HX [facility] Marsha Garibay M.D. [address] [place], [place] [address] (Wo rk) Social [...] at Date Recorded Female 05/03/2022 7:07 PM COAL SAMPLER documented as of this encounter Last Filed Vital Signs Vital Sign Reading Time Taken Comments Blood Pressure - - Pulse - - Temperature - - Respiratory Rate - - Oxygen Saturation - - Inhaled Oxygen Concentration - - Weight - - Height 137 cm (4' 5.94) 05/12/2016 9:41 AM COAL SAMPLER Body Mass Index - - documented [...] Laboratory Medicine Rusty Vee M.D. [address] [place] [phone] 06/22/2022 Diagnostic Pulmonary Medicine Rusty Vee M.D. [address] [place] [phone] 06/22/2022 Diagnostic Pulmonary Medicine Rusty Vee M.D. [address] [place] [phone] 06/22/2022 Appointment Radiology Rusty Vee M.D. [address] [place] [phone] 06/23/2022 Clinical Communication Admitting/Central Scheduling 06/28/2022 Appointment Pulmonary Rusty Mattson M.D. [address] [place] [phone] 06/28/2022 Appointment Pulmonary Medicine Rusty Vee M.D. [address] [place] [phone] documented as of this encounter Procedures Procedure Name Priority Date/Time Associated Comments Diagnosis PROTHROMBIN TIME Routine 05/12/2016 9:50 AM Resul ts for this (PT), P COAL SAMPLER procedure are i n the results section. documented in this encounter Results (ABNORMAL) PT (Prothrombin Time) with INR (05/12/2016 9:50 AM COAL SAMPLER) [facility] Method Time Signature Prothrombin 16.9 (H) 8.8 [...] / Volume Laterality Blood 05/12/2016 9:50 AM COAL SAMPLER Sridhar Garibay M.D. LAB BLOOD ADD-ON Performing Organization Address City/State/ZIP Code Phon e Number POWERCHART documented in this encounter Visit Diagnoses Not on filedocumented in this encounter
--- OUTSIDE RECORDS SUMMARY | 2022-05-25 21:05 | XMS_ITS | Encounter Summary ---
:1975 Author Organization [facility] Address [address] [place] [id number] Care Team Providers Name Role Phone Unavailable Primary Care Provider Unavailable Encounter Details Date Type Department Care Team Description 05/08/2016 Hospital Encounter HX [facility] ED Mercedes Hoang D. O. Social [...] at Date Recorded Female 05/03/2022 7:07 PM WELDER FITTER documented as of this encounter Last Filed Vital Signs Vital Sign Reading Time Taken Comments Blood Pressure 95/57 05/08/2016 9:30 PM WELDER FITTER Pulse 69 05/08/2016 5:32 PM WELDER FITTER Temperature - - Respiratory Rate 14 05/08/2016 5:32 PM WELDER FITTER Oxygen Saturation - - Inhaled Oxygen Concentration - - Weight 78.5 kg (173 lb 1 oz) 05/08/2016 5:32 PM WELDER FITTER Height 137.2 cm (4' 6) 05/08/2016 5:32 PM WELDER FITTER Body Mass Index 41.73 05/08/2016 5:32 PM WELDER FITTER documented in this encounter Discharge Summaries Joyce Ruiz R.N. - 05/08/2016 10:20 PM CST ED Depart Summary [facility] Emergency Department Clinical Discharge Summary PERSON INFORMATION Name DORITA SHEFFIELD Age 41 Years 1975 12:00 AM Sex Female Language Czech PCP TASHA HENRIQUEZ MD Marital Status Single Visit Id Visit Reason Arm pain-swelling; Fall with injury Specialty Enc Type Emergency Med Service Emergency Medicine Referred by Track Group [facility] ED Discharge 05/08/2016 10:15 PM Tracking Id [id number] Checkout 05/08/2016 10:15 PM Checkin 05/08/2016 5:23 PM Acuity 3 -Urgent Dispo Type Disch/Trans ShortTerm Gen Hosp-Inpt Care Arrival 05/08/2016 5:23 PM Reg Status Complete LOS 000 04:52 Address: [address] [facility] [id number] Comment: PROVIDER INFORMATION Provider Role Provider Contact Time MERCEDES HOANG DO ED Provider 05/08/16 17:36 KIESHA GODOY RUBBER COMPOUNDER FORMULATOR Nurse 05/08/16 17:51 JOYCE RUIZ RUBBER COMPOUNDER FORMULATOR Nurse 05/08/16 17:51 DIAGNOSIS Fracture Humerus Closed Initial L Comment: PATIENT EDUCATION INFORMATION Instructions: Follow up: Source: [facility] POWERCHART Document Id: [id number] ER FITTER Joyce Ruiz R.N. - 05/08/2016 10:20 PM CST ED Discharge Instructions [facility] [address] [place] [address] Name: DORITA SHEFFIELD Date of : 1975 12:00 AM Visit Date: 05/08/2016 5:23 PM [facility] Number: [id number] Address: [address] [facility] [id number] Primary Care Provider: TASHA HENRIQUEZ MD IMPORTANT: [facility] in [place] would like to thank you for allowing us to assist you with your healthcare needs. The following includes patient education materials and information regarding your injury/illness. Diagnosis: Fracture Humerus Closed Initial L Follow-Up Instructions: Your Upcoming Appointments: Date Time Location Provider 05/12/2016 08:15 [facility] Offsite Patient Education Materials: Consider [...] if you dont have one. Go to [email or web address] and click on Create Your Account. Then, follow the directions to complete the online form. Youll be asked for your [facility] number which you can find at [...] nurse or physician. Patient Signature or Responsible Alliance Party/Relationship Date Time Provider Signature Date Time [...] ride home with a responsible constitution party. I, NETTIE, DORITA FROST , or responsible constitution party have received this information and my questions have been answered. I have discussed any challenges I see with this plan with the nurse or physician. Patient Signature or Responsible Alliance Party/Relationship Date Time Provider Signature Date Time Source: [facility] Cupoint Document Id: [id number] ER FITTER documented in this encounter Medications at Time [...] ED Disposition Summary Entered On: 05/08/2016 22:19 WELDER FITTER Performed On: 05/08/2016 22:18 WELDER FITTER by JOYCE RUIZ RN ED Disposition Summary Present in Room During Exam/Procedure : EMS Mode of Discharge : Stretcher Transportation : Ground ambulance Printed Discharge Instructions Given to Patient : No Reason Discharge Instructions Not Given : Transferred to [facility] ED. Patient Status at Discharge from ED : Improved JOYCE RUIZ RN - 05/08/2016 22:18 WELDER FITTER Source: [employer] Document Id: [id number] WELDER FITTER!8 ER FITTER Joyce Ruiz R.N. - 05/08/2016 6:32 PM CST ED Pain Assessment ED Pain Assessment Entered On: 05/08/2016 18:32 WELDER FITTER Performed On: 05/08/2016 18:32 WELDER FITTER by JOYCE RUIZ RN Pain Assessment Pain Symptoms : Yes JOYCE RUIZ RN - 05/08/2016 18:32 WELDER FITTER Pain Scale Pain Scale Verbal 0-10 : Open JOYCE RUIZ RN - 05/08/2016 18:32 WELDER FITTER Pain Pain Assessment Grid Pain 1 Location : Upper arm Intensity : 10 JOYCE RUIZ RN - 05/08/2016 18:32 WELDER FITTER Source: [employer] Document Id: [id number] WELDER FITTER!10 ER FITTER Mercedes Hoang D.O. - 05/08/2016 5:51 PM CST Arm Injury-Pain *ED Patient: DORITA SHEFFIELD Age: 41 years Sex: Female : 1975 Author: MERCEDES HOANG DO Attachments: None Associated Diagnosis: Fracture Humerus Closed Initial L Basic Information Additional information: Chief Complaint from Nursing Triage Note : Chief Complaint Description 05/08/2016 17:25 WELDER FITTER Chief Complaint Description Ground level fall approximately [...] 21. Surgical history: Laparoscopic cholecystectomy (SNOMED CT 47706236) performed by SUSAN HEARD MD on 06/11/2014t 39 Years. AV - Atrioventricular valve operation (SNOMED CT 661052075) on 03/29/2013 at 38 Years. Comments: 04/05/2013 10:24 - TOOTIE LOPEZ ACCIDENT EXAMINER Done at [facility] on 12/04/2012 at 37 Years. Papanicolaou smear taken (SNOMED CT 651090098) on 07/19/2010 at 35 Years. I and D, left thigh & leg on 01/15/2000 at 25 Years.. Social history: Alcohol use: Denies, Tobacco use: Denies, Drug use: Denies, Family/social situation:Lives alone. Physical Examination Vital Signs: Vital Signs 05/08/2016 17:32 WELDER FITTER Temperature Core 36.6 DegC Peripheral Pulse Rate 69 /min Respiratory Rate 14 /min SpO2 89 % <LLOW Limb Alert Question No Systolic Blood Pressure 97 mmHg Diastolic Blood Pressure 71 mmHg BP Location Right upper , Measurements 05/08/2016 17:32 WELDER FITTER Height 137.16 cm Dosing Weight 78.50 kg Actual Weight 78.5 kg Weight Source Bed scale , SpO2 05/08/2016 17:32 WELDER FITTER SpO2 89 % <LLOW . General: Alert [...] more views port (Order Processing): 05/08/2016 18:08 WELDER FITTER, trauma, Stat, Patient Bed, Once, 05/08/2016 18:08 WELDER FITTER, [facility] ED, Launch Orders Nutrition Services: Diet - NPO (Order Processing): 05/08/2016 18:54 WELDER FITTER, Strict Pharmacy: morphine (Order Processing): 4 mg, IV Push, Once, Launch Orders Pharmacy: morphine (Order Processing): 4 mg, IV Push, Once. Humerus x-ray findings~. Radiology results:~, EXAM: Left Shoulder 2vw. IMPRESSION: Two-view radiograph of the left shoulder is negative for fracture or dislocation. Mild degenerative arthritis left glenohumeral and AC joints. Rohit Oliva MD [phone] 08-May-2016 19:46 EXAM: Left Shoulder 2vw. IMPRESSION: Two-view radiograph of the left shoulder is negative for fracture or dislocation. Mild degenerative arthritis left glenohumeral and AC joints. Rohit Oliva MD [phone] 08-May-2016 19:46 . Impression and Plan Diagnosis Fracture Humerus Closed Initial L (Discharge, Emergency medicine, Medical) Plan Orders: Launch Orders Pharmacy: NS Bolus (Order Processing): 250 mL, IVPB, Once 0.9% NaCl 1000 mL (Order Processing): 125 mL/hr, IV morphine (Order Processing): 2 mg, IV Push, Once Radiology: Elbow Xray Left Complete (Order Processing): 05/08/2016 17:54 WELDER FITTER, trauma, Stat, Patient Bed, Once, 05/08/2016 17:54 WELDER FITTER, [facility] ED, Launch Orders Pharmacy: Zofran (Order Processing): [...] be reapplied and pt be transferred to [facility]. Case was discussed with Dr. Wayne who accepted the transfer given the need for pain control. Results and plan were discussed with the pt and pt's family. Electronically Signed By: MERCEDES HOANG DO On: 05/08/2016 11:13 PM Modified by and Electronically Signed by: MERCEDES HOANG DO On: 05/08/2016 11:13 PM Source: [facility] POWERCHART Document Id: [id number] ER FITTER Joyce Ruiz R.N. 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 ) Name of Problem: Atrioventricular canal ; Onset Date:03/26/2013 ; Recorder: TOOTIE LOPEZ LPN; Confirmation: Confirmed ; Classification: Nursing ; Code: 543264939 ; Contributor System: PowerChart ; Last Updated: [...] Nursing ; Code: 286.9 ; Contributor System: PROFICIOChart ; Last Updated: 09/05/2013 11:40 CDT ; [...] Medical ; Code: 574.20 ; Contributor System: [employer]IO[employer] ; Last Updated: 05/29/2014 11:11 WELDER FITTER ; 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: Active ; Responsible Provider: BELLA NULL MD; Vocabulary: ICD-9-CM Impaired Fasting Glucose (ICD-9-CM :790.21 ) Name of Problem: Impaired Fasting Glucose ; Onset Date:07/22/2010 ; Confirmation: Confirmed ; Classification: Medical ; Code: 790.21 ; Contributor System: PowerChart ; Last Updated: 06/06/2014 9:13 WELDER FITTER ; 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: Active ; Vocabulary: ICD-9-CM ; Co mments: - Impaired fasting glucose Irregular Menstrual Cycle (ICD-9-CM :626.4 ) Name of Problem: Irregular Menstrual Cycle ; Onset Date: 07/28/2010 ; Confirmation: Confirmed ; Classification: Medical ; Code: 626.4 ; Contributor System: [facility]X_[facility]PLOAD ; Last Updated: 09/21/2013 19:06 CDT ; 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: Active ; Vocabulary: ICD-9-CM ; Comments: - Irregular menses Mitral valve regurgitation NOS (ICD-9-CM :424.0 ) Name of Problem: Mitral valve regurgitation NOS ; Recorder: TOOTIE LOPEZ LPN; Confirmation: Confirmed ; Classification: Nursing ; Code: 424.0 ; Contributor System: [employer] ; Last Updated: 04/05/2013 10:25 CDT ; Life Cycle Date: 04/05/2013 ; 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: Active ; Responsible Provider: TOOTIE LOPEZ LPN; Vocabulary: ICD-9-CM ; Comments: 04/05/2013 10:25 - TOOTIE LOPEZ LPN unknown date of dx Mixed Hyperlipidemia (ICD-9-CM :272.2 ) Name of Problem: Mixed Hyperlipidemia ; Onset Date: 07/22/2010 ; Confirmation: Confirmed ; Classification: Medical ; Code: 272.2 ; Contributor System: [employer]; Last Updated: 06/06/2014 9:13 WELDER FITTER ; 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: Active ; Vocabulary: [...] Merly Solomon ; Last Updated: 06/06/2014 9:13 WELDER FITTER ; 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: Active ; Vocabulary: ICD-9-CM ; Comments: - Phlebitis and thrombophlebitis of other deep vessels of lower extremities Primary Hypercoagulable State (ICD-9-CM :289.81 ) Name of Problem: Primary Hypercoagulable State ; Onset Date: 01/29/2008 ; Confirmation: Confirmed ; Classification: Medical ; Code: 289.81 ; Contributor System: [facility]PL[facility]AD ; Last Updated: 09/21/2013 19:06 CDT [...] PNED ; Probability: 0 ; Diagnosis Code: [id number] Triage Chief Complaint Description : Ground level [...] EMS Track : Trauma Other Languages : Czech GCS Assessed : Yes Treatments Prior to Arrival : Fentanyl, Intubated Are you ? : No Is Patient Female and 13-50 no hysterectomy : Yes Status : Patient denies JOYCE RUIZ RN 05/08/2016 17:34 WELDER FITTER Kathleen Coma Eye Opening Response Welcome : Spontaneously Best Verbal Response Welcome : Oriented Best Motor Response Welcome : Obeys simple commands Kathleen Coma Score : 15 JOYCE RUIZ RN 05/08/2016 17:34 WELDER FITTER Pain Assessment Pain Symptoms : Yes JOYCE RUIZ RN 05/08/2016 17:34 WELDER FITTER Pain Scale Pain Scale Verbal 0-10 : Open JOYCE RUIZ RN 05/08/2016 17:34 WELDER FITTER Pain Pain Assessment Grid Pain 1 Location : Upper arm Laterality : Left Intensity : 10 JOYCE RUIZ RN 05/08/2016 17:34 WELDER FITTER ИРИНА DCP GENERIC CODE Tracking Acuity : 3 -Urgent Tracking Group : [facility] ED JOYCE RUIZ RN 05/08/2016 17:34 WELDER FITTER Respiratory Airway : Patent Respirations : Unlabored Respiratory Pattern : Regular JOYCE RUIZ RN 05/08/2016 17:34 WELDER FITTER Cardiovascular Heart Rhythm : Regular Skin Color : Normal for ethnicity Skin Description : Dry Skin Temperature : Warm JOYCE RUIZ RN 05/08/2016 17:34 WELDER FITTER Neurological Last Well Time Known : Not applicable Level of Consciousness : Alert Orientation : Oriented x 3 Characteristics of Speech : Clear JOYCE RUIZ RN 05/08/2016 17:34 WELDER FITTER ED Psychosocial Affect/Behavior : Calm Domestic Abuse Concerns : None Behavioral Health Screen/Safety Assmt : No JOYCE RUIZ RN 05/08/2016 17:34 WELDER FITTER Gastrointestinal Nutrition ED : Adequate JOYCE RUIZ RN 05/08/2016 17:34 WELDER FITTER Musculoskeletal Fall Prevention Education Provided : Yes JOYCE RUIZ RN 05/08/2016 17:34 WELDER FITTER Social Habits Exposure to Tobacco Smoke : Other: never smoker Smoking Status : Never smoker Tobacco 2A : No Tobacco Use/Currently Using : No Tobacco Use/Last 30 Days : No Tobacco Use/Last 12 months : No JOYCE RUIZ RN 05/08/2016 17:34 WELDER FITTER Alcohol Use Grid Alcohol Use : Yes Frequency : Occasionally JOYCE RUIZ RN 05/08/2016 17:34 WELDER FITTER Recreational Drug Use Grid Drug Use : None JOYCE RUIZ RN - 05/08/2016 17:34 WELDER FITTER Peripheral IV Peripheral IV Assess/Intervention Grid Peripheral IV #1 IV Activity : Field start Number of Attempts : 1 Date of Insertion : 05/08/2016 WELDER FITTER IV Site : Antecubital Laterality : Right Catheter Size : 18 Catheter Type : Over the needle Site Condition : No complications JOYCE RUIZ RN - 05/08/2016 17:34 WELDER FITTER Source: [facility] Document Id: [id number] WELDER FITTER!80 ER FITTER Ivelisse East - 05/08/2016 5:23 PM CST ED Pre-Arrival Note Pre-Arrival Summary Name: NORMA, Current Date: 05/08/2016 17:23:52 WELDER FITTER Gender: Female Age: 41 Pre-Arrival Type: Ambulance ETA: 05/08/2016 17:46:00 WELDER FITTER Presenting Problem: Pre-Arrival User: IVELISSE [facility] Referring Source: Location: 01 Pre-Arrival Communication Form Vital Signs: 41 year old female 73 patient is coming in due to a fall patient believes to have a fractured arm 100 of fetanyl arm is in sling iv established Miscellaneous Issues: Source: [facility] Document Id: [id number] ER FITTER documented in this encounter Miscellaneous Notes Miscellaneous - Joyce Ruiz R.N. - 05/08/2016 10:19 PM CST Valuables/Belongings Valuables/Belongings Entered On: 05/08/2016 22:19 WELDER FITTER Performed On: 05/08/2016 22:19 WELDER FITTER by JOYCE RUIZ RN Valuables/Belongings Valuables/Belongings Grid Valuables with Patient Clothes, Patient Valuables : Pants, Shirt Electronic Devices : Cell phone JOYCE RUIZ RN - 05/08/2016 22:19 WELDER FITTER Source: [facility] Document Id: [id number] WELDER FITTER!6 ER FITTER Miscellaneous - Conversion, Historical Provider Ser - 05/08/2016 10:15 PM WELDER FITTER Coding Summary-Paper Based CODING DATE: 05/20/2016 FINAL RW [facility] STATUS: Disch/Trans ShortTerm Gen Hosp-Inpt [...] POWELL Date Saved: 05/20/2016 12:30 pm Source: [facility] Document Id: [id number] Miscellaneous - Joyce Ruiz R.N. - 05/08/2016 5:23 PM CST Facility Charge Ticket 2.0 11.0 DX Facility Charge Ticket 2.0 11.0 DX Entered On: 05/08/2016 22:19 WELDER FITTER Performed On: 05/08/2016 17:23 WELDER FITTER by JOYCE RUIZ RN Facility Charge Ticket 2.0 11.0 DX ED Other Charges : Standard ED Encounter TVL Level Translated RTF : Arm pain-swelling TVL:3 TVL Level for Facility Charge Ticket : Level 3 Arrival Mode Calc : 2,305 Mode of Arrival ED : Ambulance [place] Mode of Arrival Interpreted : ALS [place] Process Management : None Order Management RTF [...] Control : 15 [place] Visit Level : 62273 Level 5 Treatments Prior to Arrival : Fentanyl, Intubated JOYCE RUIZ RN - 05/08/2016 22:19 WELDER FITTER Source: [facility] Document Id: [id number] WELDER FITTER!18 ER FITTER documented in this encounter Plan of Treatment Upcoming Encounters Date Type Specialty Care Team Description 06/22/2022 Appointment Laboratory Medicine Rusty Vee M.D. [address] [place] [phone] 06/22/2022 Diagnostic Pulmonary Medicine Rusty Vee M.D. [address] [place] [phone] 06/22/2022 Diagnostic Pulmonary Medicine Rusty Vee M.D. [address] [place] [phone] 06/22/2022 Appointment Radiology Rusty Vee M.D. [address] [place] [phone] 06/23/2022 Clinical Communication Admitting/Central Scheduling 06/28/2022 Appointment Pulmonary Medicine Rusty Vee M.D. [address] [place] [phone] 06/28/2022 Appointment Pulmonary Medicine Rusty Vee M.D. [address] [place] [phone] documented as of this encounter Visit Diagnoses Not on filedocumented in this encounter
--- OUTSIDE RECORDS SUMMARY | 2022-05-25 21:05 | XMS_ITS | Encounter Summary ---
:1975 Author Organization [facility] Address [address] [place] [id number] Care Team Providers Name Role Phone Unavailable Primary Care Provider Unavailable Encounter Details Date Type Department Care Team Description 06/18/2016 Hospital Encounter HX [facility] ED Stephanie Cabrera, P.A.-C. [address] [phone] (Wo rk) Social History Tobacco Use [...] at Date Recorded Female 05/03/2022 7:07 PM PRECAST MOLDER documented as of this encounter Last Filed Vital Signs Vital Sign Reading Time Taken Comments Blood Pressure 102/64 06/18/2016 10:49 PM PRECAST MOLDER Pulse 70 06/18/2016 10:49 PM PRECAST MOLDER Temperature - - Respiratory Rate 18 06/18/2016 10:49 PM PRECAST MOLDER Oxygen Saturation - - Inhaled Oxygen Concentration - - Weight - - Height 146 cm (4' 9.48) 06/18/2016 10:49 PM PRECAST MOLDER Body Mass Index - - documented in this encounter Discharge Summaries Vitaliy Ellison R.N. - 06/19/2016 12:04 AM CST ED Discharge Instructions [address] [place] [address] Name: DORITA SHEFFIELD Date of : 1975 12:00 AM Visit Date: 06/18/2016 10:34 PM [facility] Number: [id number] Address: [address] [facility] [phone] Primary Care Provider: TASHA HENRIQUEZ MD IMPORTANT: [facility] would like to thank you for allowing us to assist you with your healthcare needs. The following includes patient education materials and informationregarding your injury/illness. Diagnosis: Blood In Stool Follow-Up Instructions: Your Upcoming Appointments: Date Time Location Provider 06/24/2016 09:00 [facility] Anticoag [facility] Anti Coag 2 Patient Education Materials: [...] bleeding can also occur without pain. ?? [phone] [facility], [address] [place] [address], [place] [address]. All rights reserved. This information is not [...] if you dont have one. Go to [email or web address] and click on Create Your Account. Then, follow the directions to complete the online form. Youll be asked for your [facility] number which you can find at [...] arrange a ride home with a responsible republican. I, NETTIE, DORITA FROST , or responsible republican have received this information and my questions [...] arrange a ride home with a responsible republican. I, DORITA SHEFFIELD , or responsible republican have received this information and my questions have been answered. I have discussed any challenges I see with this plan with the nurse or physician. Patient Signature or Responsible Alliance Party/Relationship Date Time Provider Signature Date Time This document has images extracted. Please consider using [employer] for all your patient education needs. Source: CirclePublish Document Id: [id number] AST MOLDER Vitaliy Ellison R.N. - 06/19/2016 12:04 AM CST ED Depart Summary [facility] Emergency Department Clinical Discharge Summary PERSON INFORMATION Name DORITA SHEFFIELD Age 41 Years 1975 12:00 AM Sex Female Language Vincentian PCP TASHA HENRIQUEZ MD Marital Status Single Visit Id Visit Reason Rectal bleed; passing blood Specialty Enc Type Emergency Med Service Emergency Medicine Referred by Track Group [facility] ED Discharge 06/18/2016 11:59 PM Tracking Id [id number] Checkout 06/18/2016 11:59 PM Checkin 06/18/2016 10:34 PM Acuity 3 -Urgent Dispo Type * Discharged to Home or Self Care Arrival 06/18/2016 10:34 PM Reg Status MISAEL 000 01:25 Address: [address] [facility] [phone] Comment: PROVIDER INFORMATION Provider Role Provider Contact Time KEVIN CABRERA PA-C ED Provider 06/18/16 22:47 DOMINGUEZ BROWN ACCOUNT DEVELOPMENT ASSOCIATE Nurse 06/18/16 23:02 VITALIY ELLISON ACCOUNT DEVELOPMENT ASSOCIATE Nurse 06/18/16 23:32 DIAGNOSIS Blood In Stool Comment: PATIENT EDUCATION INFORMATION Instructions: Understanding Rectal Bleeding Follow [facility]: [facility] Document Id: [id number] AST MOLDER documented in this encounter Medications at Time [...] of this encounter ED Notes Vitaliy Ellison RKareem. - 06/19/2016 12:03 AM CST ED Disposition Summary ED Disposition Summary Entered On: 06/19/2016 0:03 PRECAST MOLDER Performed On: 06/19/2016 0:03 PRECAST MOLDER by VITALIY ELLISON RN ED Disposition Summary Present in Room During Exam/Procedure : Father, Mother Mode of Discharge : Ambulatory Transportation : Private vehicle Printed Discharge Instructions Given to Patient : Yes Patient Status at Discharge from ED : Improved VITALIY ELLISON RN - 06/19/2016 0:03 PRECAST MOLDER [facility] Document Id: [id number] PRECAST MOLDER!7 AST MOLDER Vitaliy Ellison R.N. - 06/19/2016 12:03 AM CST ED Pain Assessment ED Pain Assessment Entered On: 06/19/2016 0:03 PRECAST MOLDER Performed On: 06/19/2016 0:03 PRECAST MOLDER by VITALIY ELLISON RN Pain Assessment Pain Symptoms : No VITALIY ELLISON RN - 06/19/2016 0:03 PRECAST MOLDER Source: [facility] MolecuLight Document Id: [id number] PRECAST MOLDER!3 AST MOLDER Kevin Cabrera P.A.-C. - 06/18/2016 11:56 PM CST Rectal bleed Patient: DORITA SHEFFIELD Age: 41 years Sex: Female : 1975 Author: KEVIN CABRERA PA-C Attachments: None Associated Diagnosis: Blood In Stool Basic Information Additional information: Chief Complaint from Nursing Triage Note : Chief Complaint Description 06/18/2016 23:00 PRECAST MOLDER Chief Complaint Description See triage note 06/18/2016 22:49 PRECAST MOLDER Chief Complaint Description Patient has been having [...] of lower extremities. Surgical history: Laparoscopic cholecystectomy ([id number]) on 06/11/2014 at 39 Years. AV - Atrioventricular valve operation ([id number]) on 03/29/2013 at 38 Years. Comments: 04/05/2013 10:24 - TOOTIE LOPEZ LPN Done at [facility] Colonoscopy on 12/04/2012 at 37 Years. Papanicolaou smear taken ([id number]) on 07/19/2010 at 35 Years. I and [...] Examination Vital Signs: Vital Signs 06/18/2016 22:49 PRECAST MOLDER Temperature Core 37 DegC Peripheral Pulse Rate 70 /min Respiratory Rate 18 /min SpO2 100 % Limb Alert Question No Systolic Blood Pressure 102 mmHg Diastolic Blood Pressure 64 mmHg Mean Arterial Pressure 77 mmHg BP Location Right upper , Measurements 06/18/2016 22:49 PRECAST MOLDER Height 146 cm Height Source Stated Dosing Weight 72.00 kg NA Estimated Weight 72 kg 06/17/2016 9:29 PRECAST MOLDER Height 137 cm , SpO2 06/18/2016 22:49 PRECAST MOLDER SpO2 100 % . General: Alert and [...] review:Lab results : Lab View 06/18/2016 23:25 PRECAST MOLDER Hgb 11.5 g/dL LOW Hct 35.5 % WBC 4.6 x10(9)/L RBC 3.73 x10(12)/L LOW MCV 95.2 fL RDW 13.2 % Platelet 145 x10(9)/L LOW Neutro Absolute 3.08 10(9)/L Lymph Absolute 1.08 x10(9)/L [place] Absolute 0.39 x10(9)/L Eos Absolute 0.04 x10(9)/L [...] U/L Bili Total 0.2 mg/dL 06/18/2016 23:10 PRECAST MOLDER Occult Bld Stl I Positive . Impression and Plan Diagnosis Blood In Stool (Discharge, Medical) Plan Patient was given the following educational materials: Understanding Rectal Bleeding. Follow up with: Primary Care Physician, In: 2 day(s). Counseled: Patient. Orders: Launch Orders Patient Care: Discharge ED Patient (Order Processing): 06/18/2016 23:58 PRECAST MOLDER. Electronically Signed By: KEVIN CABRERA PA-C On: 06/19/2016 12:03 AM Modified by and Electronically Signed by: KEVIN CABRERA PA-C On: 06/19/2016 12:03 AM Co-Signed By: ELMIRA ANTONIO MD On: 06/19/2016 09:09 PM Source: [facility] POWERCHART Document Id: [id number] AST MOLDER Dominguez Brown, RMichaelN. 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 ) Name of Problem: Atrioventricular canal ; Onset Date:03/26/2013 ; Recorder: TOOTIE LOPEZ LPN; Confirmation: Confirmed ; Classification: Nursing ; Code: 717693940 ; Contributor System: [email or web address] ; Last Updated: 04/05/2013 10:22 CDT ; [...] System: PowerChart ; Last Updated: 05/29/2014 11:11 PRECAST MOLDER ; 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: Active ; Responsible Provider: BELLA NULL MD; Vocabulary: ICD-9-CM Impaired Fasting Glucose (ICD-9-CM :790.21 ) Name of Problem: Impaired Fasting Glucose ; Onset Date:07/22/2010 ; Confirmation: Confirmed ; Classification: Medical ; Code: 790.21 ; Contributor System: PowerChart ; Last Updated: 06/06/2014 9:13 PRECAST MOLDER ; 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: Active ; Vocabulary: ICD-9-CM ; Co mments: - Impaired fasting glucose Irregular Menstrual Cycle (ICD-9-CM :626.4 ) Name of Problem: Irregular Menstrual Cycle ; Onset Date: 07/28/2010 ; Confirmation: Confirmed ; Classification: Medical ; Code: 626.4 ; Contributor System: [facility]HX[facility]PLOAD ; Last Updated: 09/21/2013 19:06 CDT ; 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: Active ; Vocabulary: ICD-9-CM ; Comments: - Irregular menses Mitral valve regurgitation NOS (ICD-9-CM :424.0 ) Name of Problem: Mitral valve regurgitation NOS ; Recorder: TOOTIE LOPEZ LPN; Confirmation: Confirmed ; Classification: Nursing ; Code: 424.0 ; Contributor System: AdwantedChart ; Last Updated: 04/05/2013 10:25 CDT ; Life Cycle Date: 04/05/2013 ; 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: Active ; Responsible Provider: TOOTIE LOPEZ LPN; Vocabulary: ICD-9-CM ; Comments: 04/05/2013 10:25 - TOOTIE LOPEZ LPN unknown date of dx Mixed Hyperlipidemia (ICD-9-CM :272.2 ) Name of Problem: Mixed Hyperlipidemia ; Onset Date: 07/22/2010 ; Confirmation: Confirmed ; Classification: Medical ; Code: 272.2 ; Contributor System: PowerChart; Last Updated: 06/06/2014 9:13 PRECAST MOLDER ; 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: Active ; Vocabulary: [...] Merly Solomon ; Last Updated: 06/06/2014 9:13 PRECAST MOLDER ; 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: Active ; Vocabulary: ICD-9-CM ; Comments: - Phlebitis and thrombophlebitis of other deep vessels of lower extremities Primary Hypercoagulable State (ICD-9-CM :289.81 ) Name of Problem: Primary Hypercoagulable State ; Onset Date: 01/29/2008 ; Confirmation: Confirmed ; Classification: Medical ; Code: 289.81 ; Contributor System: [facility] ; Last Updated: 09/21/2013 19:06 CDT ; 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: Active ; Vocabulary: ICD-9-CM ; Comments: - Protein S deficiency With elevated d-dimer Dr. Anna Riley rec: lifelong coumadin Psoriasis (ICD-9-CM :696.1 ) Name of Problem: Psoriasis ; Recorder: TOOTIE LOPEZ LPN; Confirmation: Confirmed ; Classification: Nursing ; Code: 696.1 ; Contributor System: [email or web address] ; Last Updated: 04/05/2013 10:24 CDT ; [...] Nursing ; Code: 424.2 ; Contributor System: [email or web address] ; Last Updated: 04/05/2013 10:25 CDT ; [...] Private vehicle Track : Medical Languages : Vincentian Treatments Prior to Arrival : None Are you ? : No Is Patient Female and 13-50 no hysterectomy : Yes Status : Patient denies DOMINGUEZ BROWN RN 06/18/2016 23:00 PRECAST MOLDER Pain Assessment Pain Symptoms : No DOMINGUEZ BROWN RN 06/18/2016 23:00 PRECAST MOLDER Respiratory Airway : Patent Respirations : Unlabored Respiratory Pattern : Regular DOMINGUEZ BROWN RN 06/18/2016 23:00 PRECAST MOLDER Cardiovascular Heart Rhythm : Regular Skin Color : Normal for ethnicity Skin Description : Dry Skin Temperature : Warm DOMINGUEZ BROWN RN 06/18/2016 23:00 PRECAST MOLDER Neurological Last Well Time Known : Not applicable Level of Consciousness : Alert Orientation : Oriented x 3 Characteristics of Speech : Appropriate for age DOMINGUEZ BROWN RN 06/18/2016 23:00 PRECAST MOLDER ED Psychosocial Affect/Behavior : Calm Domestic Abuse Concerns : None Behavioral Health Screen/Safety Assmt : No DOMINGUEZ BROWN RN 06/18/2016 23:00 PRECAST MOLDER Gastrointestinal Nutrition ED : Adequate DOMINGUEZ BROWN RN 06/18/2016 23:00 PRECAST MOLDER Musculoskeletal Fall Prevention Education Provided : DOMINGUEZ BARRAZA RN 06/18/2016 23:00 PRECAST MOLDER Social Habits Exposure to Tobacco Smoke : Other: never smoker Smoking Status : Never smoker Tobacco 2A : No Tobacco Use/Currently Using : No Tobacco Use/Last 30 Days : No Tobacco Use/Last 12 months : No Alcohol Use for AUDIT tool : Yes DOMINGUEZ BROWN RN 06/18/2016 23:00 PRECAST MOLDER Alcohol Use Grid Alcohol Use : Yes Frequency : Occasionally DOMINGUEZ BROWN RN 06/18/2016 23:00 PRECAST MOLDER Recreational Drug Use Grid Drug Use : None DOMINGUEZ BROWN RN 06/18/2016 23:00 PRECAST MOLDER AUDIT Tool How Often Do You Have A Drink : Monthly or less How Many Drinks in a Day When Drinking : 1 or 2 Six or More Drinks On One Occassion : Never Audit Phase 1 Score : 1 DOMINGUEZ BROWN RN 06/18/2016 23:00 PRECAST MOLDER Source: [facility] POWERCHART Document Id: [id number] PRECAST MOLDER!54 AST MOLDER Dominguez Brown R.N. - 06/18/2016 10:49 PM CST ED Triage Assessment Document Has Been Updated ED Triage Assessment Entered On: 06/18/2016 23:00 PRECAST MOLDER Performed On: 06/18/2016 22:49 PRECAST MOLDER by DOMINGUEZ BROWN RN Reason For Visit (As Of: 06/18/2016 23:00:50 PRECAST MOLDER) Problems(Active) Atrioventricular canal (SNOMED CT :648963455 ) Name of Problem: Atrioventricular canal ; Onset Date:03/26/2013 ; Recorder: TOOTIE LOPEZ LPN; Confirmation: Confirmed ; Classification: Nursing ; Code: 933678424 ; Contributor System: PowerChart ; Last Updated: [...] Nursing ; Code: 286.9 ; Contributor System: AdwantedChart ; Last Updated: 09/05/2013 11:40 CDT ; 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: Active ; Vocabulary: ICD-9-CM DVT, lower extremity (ICD-9-CM :453.40 ) Name of Problem: DVT, lower extremity ; Onset Date: 2006 ; Recorder: TOOTIE LOPEZ LPN; Confirmation: Confirmed ; Classification: Nursing ; Code: 453.40 ; Contributor System: AdwantedChart ; Last Updated: 04/05/2013 10:26 CDT ; Life Cycle Date: 04/05/2013 ; 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: Active ; Responsible Provider: TOOTIE LOPEZ LPN; Vocabulary: ICD-9-CM Gallstone Without Obstruction (ICD-9-CM :574.20 ) Name of Problem: Gallstone Without Obstruction ; Recorder: BELLA NULL MD; Confirmation: Confirmed ; Classification: Medical ; Code: 574.20 ; Contributor System: AdwantedChart ; Last Updated: 05/29/2014 11:11 PRECAST MOLDER ; 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: Active ; Responsible Provider: BELLA NULL MD; Vocabulary: ICD-9-CM Impaired Fasting Glucose (ICD-9-CM :790.21 ) Name of Problem: Impaired Fasting Glucose ; Onset Date:07/22/2010 ; Confirmation: Confirmed ; Classification: Medical ; Code: 790.21 ; Contributor System: PowerChart ; Last Updated: 06/06/2014 9:13 PRECAST MOLDER ; 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: Active ; Vocabulary: ICD-9-CM ; Co mments: - Impaired fasting glucose Irregular Menstrual Cycle (ICD-9-CM :626.4 ) Name of Problem: Irregular Menstrual Cycle ; Onset Date: 07/28/2010 ; Confirmation: Confirmed ; Classification: Medical ; Code: 626.4 ; Contributor System: [facility] ; Last Updated: 09/21/2013 19:06 CDT ; 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: Active ; Vocabulary: ICD-9-CM ; Comments: - Irregular menses Mitral valve regurgitation NOS (ICD-9-CM :424.0 ) Name of Problem: Mitral valve regurgitation NOS ; Recorder: TOOTIE LOPEZ LPN; Confirmation: Confirmed ; Classification: Nursing ; Code: 424.0 ; Contributor System: [email or web address] ; Last Updated: 04/05/2013 10:25 CDT ; Life Cycle Date: 04/05/2013 ; 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: Active ; Responsible Provider: TOOTIE LOPEZ LPN; Vocabulary: ICD-9-CM ; Comments: 04/05/2013 10:25 - TOOTIE LOPEZ LPN unknown date of dx Mixed Hyperlipidemia (ICD-9-CM :272.2 ) Name of Problem: Mixed Hyperlipidemia ; Onset Date: 07/22/2010 ; Confirmation: Confirmed ; Classification: Medical ; Code: 272.2 ; Contributor System: [email or web address]; Last Updated: 06/06/2014 9:13 PRECAST MOLDER ; 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: Active ; Vocabulary: [...] Merly Solomon ; Last Updated: 06/06/2014 9:13 PRECAST MOLDER ; 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: Active ; Vocabulary: ICD-9-CM ; Comments: - Phlebitis and thrombophlebitis of other deep vessels of lower extremities Primary Hypercoagulable State (ICD-9-CM :289.81 ) Name of Problem: Primary Hypercoagulable State ; Onset Date: 01/29/2008 ; Confirmation: Confirmed ; Classification: Medical ; Code: 289.81 ; Contributor System: [facility] ; Last Updated: 09/21/2013 19:06 CDT [...] Private vehicle Track : Medical Languages : Vincentian Vital Signs Assessed : Yes Treatments Prior to Arrival : None Are you ? : No Is Patient Female and 13-50 no hysterectomy : Yes Status : Patient jazielies DOMINGUEZ BROWN RN - 06/18/2016 22:49 PRECAST MOLDER Vital Signs Temperature Core : 37 DegC(Converted [...] lb DOMINGUEZ BROWN RN - 06/18/2016 22:49 PRECAST MOLDER Pain Assessment Pain Symptoms : No DOMINGUEZ BROWN RN - 06/18/2016 22:49 PRECAST MOLDER ED Physician Notification Time ED Physician Notification Time : 06/18/2016 22:59 PRECAST MOLDER DOMINGUEZ BROWN RN - 06/18/2016 22:49 PRECAST MOLDER ИРИНА ИРИНА Level 1 : No ИРИНА Level 2 : No ИРИНА Level 3 : Many Vital Signs ИРИНА : No DOMINGUEZ BROWN RN - 06/18/2016 22:49 PRECAST MOLDER DCP GENERIC CODE Tracking Acuity : 3 -Urgent Tracking Group : [facility] ED DOMINGUEZ BROWN RN - 06/18/2016 22:49 PRECAST MOLDER Allergy (As Of: 06/18/2016 23:00:51 PRECAST MOLDER) Allergies (Active) Bee Stings Comments: Comment 1: BEES ; Created By: ContributorRock My WorldsystemKG_LASHONDA; Reaction Status: Active ; Category: Environment ; Substance: Bee Stings ; Type: Unknown ; Updated By: SongvicesystemKG_LASHONDA; Reviewed Date: 06/18/2016 23:00 PRECAST MOLDER chloramphenicol containing compounds Comments: Comment 1: CHLORAMPHENICOL ; Created By: PrepChampsKG_LASHONDA; Reaction Status: Active ; Category: Drug ; Substance: chloramphenicol containing compounds ; Type: Unknown ; Updated By: SongvicesystemKG_LASHONDA; Reviewed Date: 06/18/2016 23:00 PRECAST MOLDER quinolone antibiotics Comments: Comment 1: QUINOLONES - ciloxan eye tts ; Created By: PrepChampsMISTI; Reaction Status: Active ; Category: Drug ; Substance: quinolone antibiotics ;Type: Unknown ; Updated By: PrepChampsKG_LASHONDA; Reviewed Date: 06/18/2016 23:00 PRECAST MOLDER ID Screen Drug Resistant Organism : No DOMINGUEZ RBOWN RN - 06/18/2016 22:49 PRECAST MOLDER Immunizations Immunizations Current : Yes Last Tetanus : Unknown Pneumovac : None Influenza : This year DOMINGUEZ BROWN RN - 06/18/2016 22:49 PRECAST MOLDER Source: [employer]Publish Document Id: [id number] PRECAST MOLDER!47 AST MOLDER documented in this encounter Miscellaneous Notes Miscellaneous - Vitaliy Ellison R.N. - 06/19/2016 12:03 AM CST Valuables/Belongings Valuables/Belongings Entered On: 06/19/2016 0:03 PRECAST MOLDER Performed On: 06/19/2016 0:03 PRECAST MOLDER by VITALIY ELLISON RN Valuables/Belongings Room Orientation/Facility Policy Reviewed : Yes Belongings Sent Home With : home with patient Home Medication Disposition : None brought in with patient VITALIY ELLISON RN - 06/19/2016 0:03 PRECAST MOLDER Source: [employer]Publ[employer] Document Id: [id number] PRECAST MOLDER!5 AST MOLDER Miscellaneous - Conversion, Historical Provider Ser - 06/18/2016 11:59 PM PRECAST MOLDER Coding Summary-Paper Based CODING DATE: 06/28/2016 FINAL [facility] STATUS: * Discharged to Home [...] BUTLER Date Saved: 06/28/2016 02:34 pm Source: CirclePublish Document Id: [id number] Miscellaneous - Vitaliy Ellison R.N. - 06/18/2016 10:34 PM CST Facility Charge Ticket 2.0 11.0 DX Facility Charge Ticket 2.0 11.0 DX Entered On: 06/19/2016 0:03 PRECAST MOLDER Performed On: 06/18/2016 22:34 PRECAST MOLDER by VITALIY ELLISON RN Facility Charge Ticket [...] : Laboratory CBC (includes Auto Differential),06/18/16 23:05,KEVIN CABRERA PA-C Completed CMP,06/18/16 23:05,KEVIN CABRERA PA-C Completed Stool Occult BLD X1,06/18/16 23:05,KEVIN CABRERA PA-C Completed PT/INR,06/18/16 23:05,KEVIN CABRERA PA-C Completed Automated Diff-5 Part,06/18/16 23:30,KEVIN CABRERA PA-C Completed [facility] Order Management : Lab tests 30 Minutes Critical Care : No Nursing Notes RTF : Triage Forms ED Triage Assessment,06/18/16 22:49,DOMINGUEZ BROWN RN Nursing Notes ED Primary Assessment,06/18/16 23:00,DOMINGUEZ BROWN ACCOUNT DEVELOPMENT ASSOCIATE Pain Assessment,06/19/16 00:03,VITALIY ELLISON RN [facility] Nursing Assessment : Triage only [facility] Disposition : Discharge [facility] Total Points with Diagnosis Control : 5 [facility] Visit Level : 90441 Level 3 Treatments Prior to Arrival : None VITALIY ELLISON RN - 06/19/2016 0:03 PRECAST MOLDER Source: [facility] POWERCHART Document Id: [id number] PRECAST MOLDER!18 AST MOLDER documented in this encounter Plan of Treatment Upcoming Encounters Date Type Specialty Care Team Description 06/22/2022 Appointment Laboratory Medicine Rusty Vee M.D. [address] [place] [phone] 06/22/2022 Diagnostic Pulmonary Medicine Rusty Vee M.D. [address] [place] [phone] 06/22/2022 Diagnostic Pulmonary Medicine Rusty Vee M.D. [address] [place] [phone] 06/22/2022 Appointment Radiology Rusty Vee M.D. [address] [place] [phone] 06/23/2022 Clinical Communication Admitting/Central Scheduling 06/28/2022 Appointment Pulmonary Medicine Rusty Vee M.D. [address] [place] [phone] 06/28/2022 Appointment Pulmonary Medicine Rusty Vee M.D. [address] [place] [phone] documented as of this encounter Procedures Procedure Name Priority Date/Time Associated Comments Diagnosis AUTOMATED Routine 06/18/2016 11:25 Results for this DIFFERENTIAL, B PM PRECAST MOLDER procedure ar e in the results section. PROTHROMBIN TIME (PT), Routine 06/18/2016 11:25 R esults for this P PM PRECAST MOLDER procedure are i n the results section. CBC WITH DIFFERENTIAL, Routine 06/18/2016 11:25 R esults for this B PM PRECAST MOLDER procedure are i n the results section. COMPREHENSIVE Routine 06/18/2016 11:25 Results fo r this METABOLIC PANEL, S/P PM PRECAST MOLDER procedu re are in the results section. POCT HEMOCCULT - Routine 06/18/2016 11:10 Results for this NURSING PM PRECAST MOLDER procedure are i n the results section. documented in this encounter Results (ABNORMAL) Automated Differential (06/18/2016 11:25 PM PRECAST MOLDER) [facility] Method Time Signature Absolute 3.08 1.70 - POWERCHART Neutrophils 7.00 109L Lymphocytes 1.08 0.90 - POWERCHART 2.90 X109L Monocytes 0.39 0.30 - POWERCHART 0.90 X109L Eosinophils 0.04 (L) 0.05 - POWERCHART 0.50 X109L Absolute 0.02 0.00 - POWERCHART Basophil 0.30 X109L Specimen Anatomical Collection Method Collection Time Receive d Time (Source) Location / / Volume Laterality Blood 06/18/2016 11:25 06/18/2016 PM PRECAST MOLDER 11:25 PM PRECAST MOLDER Kevin Cabrera P.A.-C. LAB BLOOD ADD-ON Performing Organization Address City/[facility] [address]/ZIP Code Phon e Number POWERCHART (ABNORMAL) PT (Prothrombin Time) with INR (06/18/2016 11:25 PM PRECAST MOLDER) Patholo gist Method Time Signature Prothrombin 24.8 [...] / Volume Laterality Blood 06/18/2016 11:25 PM PRECAST MOLDER Kevin Cabrera P.A.-C. LAB BLOOD ADD-ON Performing Organization Address [facility] [address]/[facility] Code Phon e Number POWERCHART (ABNORMAL) CBC with Differential (06/18/2016 11:25 PM PRECAST MOLDER) Analysis Performed At [facility] logist Time Signature Leukocytes 4.6 3.4 - 10.5 POWERCHART X109L Erythrocytes 3.73 (L) 3.90 - POWERCHART 5.03 [id number] Hemoglobin 11.5 (L) 12.0 - POWERCHART 15.5 GDL Hematocrit 35.5 34.9 - POWERCHART 44.5 MCV 95.2 81.6 - POWERCHART 98.3 FL HX RDW 13.2 11.9 - POWERCHART 15.5 Platelet Count 145 (L) 150 - 450 POWERCHART X109L Specimen (Source) Anatomical Collection Method Collection Time Re ceived Time Location / / Volume Laterality Blood 06/18/2016 11:25 PM PRECAST MOLDER Kevin Cabrera P.A.-C. LAB BLOOD ADD-ON Performing Organization Address City/State/ZIP Code Phon e Number POWERCHART (ABNORMAL) CMP (Comprehensive Metabolic Panel) (06/18/2016 11:25 PM PRECAST MOLDER) Patholo gist Method Time Signature Alanine 17 7 [...] MMOLL HXeGFR (MDRD) 54 (L) >=60 POWERCHART [id number] 2 eGFR Black/ >60 >=60 POWERCHART Israeli [id number] 2 Bilirubin, Total, S 0.2 <=1.2 POWERCHART MGDL Total Protein, S 7.0 6.3 - 7.9 POWERCHART GDL Glucose 96 70 - 139 POWERCHART MGDL Aspartate 20 8 - 43 UL POWERCHART Aminotransferase (AST), S Specimen (Source) Anatomical Collection Method Collection Time Re ceived Time Location / / Volume Laterality Blood 06/18/2016 11:25 PM PRECAST MOLDER Kevin Cabrera P.A.-C. LAB BLOOD ADD-ON Performing Organization Address City/State/ZIP Code Phon e Number POWERCHART Hemmoccult, POCT (nursing) (06/18/2016 11:10 PM PRECAST MOLDER) P athologist Signature HXOccult Bld Positive POWERCHART Stl I Specimen (Source) Anatomical Collection Method Collection Time Re ceived Time Location / / Volume Laterality Stool 06/18/2016 11:10 PM PRECAST MOLDER Kevin Cabrera P.A.-C. LAB POCT ORDERABLES-MANUAL Performing Organization Address City/State/ZIP Code Phon e Number POWERCHART documented in this encounter Visit Diagnoses Not on filedocumented in this encounter
--- OUTSIDE RECORDS SUMMARY | 2022-05-25 21:06 | XMS_ITS | Encounter Summary ---
:1975 Author Organization [facility] Address [address] [place] [address] Care Team Providers Name Role Phone Unavailable Primary Care Provider Unavailable Encounter Details Date Type Department Care Team Description 03/07/2016 Hospital Encounter HX [facility] Andrea Whipple M.D. [address] [place], [place] [address] (Wo rk) Social History [...] at Date Recorded Female 05/03/2022 7:07 PM STOCK SORTER documented as of this encounter Last Filed [...] Performed On: 03/07/2016 10:32 CDT by NICHOLE SOTO RN Protime/INR Point of Care INR goal range : 2.0 - 3.0 Duration of Therapy : Lifelong INR POC Results : 2.4 (HI) Instrument Number : [id number] Internal QC : Pass Dulce Lot Number : [id number] Cuvlaxmi Expiration Date : 05/25/2016 STOCK SORTER Comment : see intake form Total Weekly Warfarin Dose : 15.5 NICHOLE SOTO RN - 03/07/2016 10:32 CDT Source: [facility] [employer]OWER[employer]jump Document Id: [id number] CDT!11 documented in this encounter Miscellaneous Notes Miscellaneous - Hanna Truong RMichaelNMichael - 03/16/2016 3:55 PM CDT Anticoagulation [...] darya BURGESS JM HANNA Rivera RN - 03/16/2016 15:55 CDT HANNA TRUONG [...] completed by : darya lackey [facility]/pharmacy HANNA TRUONG RN - 03/16/2016 15:55 CDT HANNA TRUONG RN - 03/16/2016 15:55 CDT HANNA TRUONG RN - 03/16/2016 15:55 CDT HANNA TRUONG RN - 03/16/2016 15:55 CDT Date : 04/17/2014 CDT 04/24/2014 CDT 05/01/2014 STOCK SORTER 05/15/2014 STOCK SORTER Location of INR sample : Lab Lab [...] will trynoted dose called to mom Fabiola [phone] called to Fabiola/no changes Called to mother/Fabiola, not awareof any changes Recommend Recheck : One week One week Two weeks Two weeks Plan completed by : HANNA CLAY RN - 03/16/2016 15:55 CDT HANNA TRUONG RN - 03/16/2016 15:55 CDT HANNA TRUONG RN - 03/16/2016 15:55 CDT HANNA TRUONG RN - 03/16/2016 15:55 CDT Date : 06/03/2014 STOCK SORTER 06/05/2014 STOCK SORTER 06/10/2014 STOCK SORTER 06/11/2014 STOCK SORTER Location of INR sample : Lab Type [...] Fabiola granados. Dorita will be staying in [place] 2wks post-surgery & have INR drawn there. [...] lovenox tomorrow AM as ordered. INR in [place] for next several weeks as pt will be recovering there. Recommend Recheck : Other: depending on Dr. Henriquez's preop. Other: 06/18 Other: 06/13/14 Plan completed by : HANNA MARTIN RN - 03/16/2016 15:55 CDT HANNA TRUONG RN - 03/16/2016 15:55 CDT HANNA TRUONG RN - 03/16/2016 15:55 CDT HANNA TRUONG RN - 03/16/2016 15:55 CDT Date : 06/14/2014 STOCK SORTER 06/14/2014 STOCK SORTER 06/16/2014 STOCK SORTER 06/23/2014 STOCK SORTER Location of INR sample : Clinic Lab Lab Type of Sample : Venous Venous INR Result : 1.3 on 06/13 2.4 faxed from lab 2.0 Warfarin Dose : (pt took 2.5mg 06/13) 5mg Sat and 5mg Sun (06/14 and 06/15) 5mg Mon and 2.5mg all other days 5mg Mon and 2.5mg all other days Total Weekly Warfarin Dose : 20 20 Comment : [place] lab called with INR result from 06/13, reported they left a message with Dr. Henriquez and hadn't heard back, spoke with mother, Fabiola, and gave doses, continue Lovenox and repeat INR 06/16, message left with INR clinic in to contact CF Please contact [place] lab on 06/16 for result and may call Fabiola at [phone] with instructions call to Fabiola/will stop Lovenox injections and take noted dose/pt has an appt here in [place] 06/23 so will do lab appt here that day Called to Fabiola/ Dorita will be back at [facility] by next draw. will have done on . no changes to meds/diet. Recommend Recheck : Two days One week Two weeks Plan completed by : HANNA Neri LM RN - 03/16/2016 15:55 CDT HANNA TRUONG RN - 03/16/2016 15:55 CDT HANNA TRUONG RN - 03/16/2016 15:55 CDT HANNA TRUONG RN - 03/16/2016 15:55 CDT Date : 07/10/2014 STOCK SORTER 07/17/2014 STOCK SORTER 07/31/2014 STOCK SORTER 09/11/2014 CDT Location of INR sample : [...] called to Mom/Fabiola, no changes called to Castro Fabiola, only change is she is 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 [employer]/no bleeding/consult with Quintin/Pharmacy and called Mom with orders Per Castro Meredith, no changes, has been drinking some [...] 15:55 CDT Date : 04/09/2015 CDT 05/07/2015 STOCK SORTER 06/04/2015 STOCK SORTER 07/02/2015 STOCK SORTER Location of INR sample : Lab Lab [...] - 03/16/2016 15:55 CDT Date : 08/06/2015 STOCK SORTER 09/17/2015 CDT 10/29/2015 CDT 11/12/2015 CDT Location [...] Tyshawn Brizuela, Pharm.D. BAUDILIO, PharmD Eliseo Quezada, PharmValentina. ELFEGOHANNA MATHEWS - 03/16/2016 15:55 CDT ELFEGOHANNA MATHEWS - 03/16/2016 15:55 CDT ELFEGOHANNA MATHEWS - 03/16/2016 15:55 CDT ELFEGOHANNA MATHEWS - 03/16/2016 15:55 CDT Date : 02/23/2016 [...] by : Eliseo Quezada, Alida. Eliseo Quezada, PharmD. Tyshawn Brizuela, Pharm.D. Eliseo Quezada, PharmD. ELFEGOHANNA MATHEWS - 03/16/2016 15:55 CDT HANNA TRUONG - 03/16/2016 15:55 CDT HANNA TRUONG - 03/16/2016 15:55 CDT HANNA TRUONG - 03/16/2016 15:55 CDT Date : 02/27/2016 [...] : Pt being discharged on Bactrim. Will cigar packer and picker rx for 2 mg tabs On bactrim 2 days left, has f/u in [place] on Monday. Pt mother states plan to return to [facility] on 03/06. next [place]. 2mg Tu[place]Th Rev'd with Jelly/Pharmacist,called to castro/Fabiola [...] : HANNA Chung RN, RN, RN - 03/16/2016 15:55 CDT HANNA TRUONG [...] pt will be staying with sister in [facility] next week she will have [...] 03/16/2016 15:55 CDT Source: [facility] Touchstone HealthCHART Document Id: [id number] CDT!668 Miscellaneous - Meli Campo R.N. - 03/07/2016 11:45 AM CDT Custom Result Letter March 07, 2016 DORITA NETTIE [address] [facility] [id number] Dear DORITA SHEFFIELD, Dear Colleague, Our patient, Dorita Sheffield, 73 is currently away from the [place], [place] area and remains on Warfarin (Coumadin) therapy for DVT, diagnosis code I82.409. INR monitoring is required to continue the consistent management of our patient. Please draw an INR on a PRN basis and fax the results to: [facility] [place]R [place] [address] Fax: Phone: Thank You for your cooperation. [facility] INR Clinic staff: Antonia Mcclellan, RN;Antonia Gifford, RN; Hanna Truong RN; Meli Campo, RN; Love Medina, RN Provider signature: Tasha Henriquez MD Sincerely, MELI CAMPO Electronic Signature Electronically Signed By: MELI CAMPO RN On: March 07, 2016 This document has images extracted. Source: [facility] Spireon Document Id: [id number] Electronically signed by Conversion, [facility] Senior Ui Ux Designer [id number] at 11/20/2016 5:43 AM CDT Miscellaneous - Conversion, Historical Provider Ser - 03/07/2016 10:42 AM CDT INR management Document Contains Addenda Addendum by NICHOLE SOTO RN on March 07, 2016 15:15:08 CDT From: NICHOLE SOTO RN To: Anticoagulation Nurse; Sent: 03/07/2016 15:15:08 CDT Subject: RE: INR management Thank you! Addendum by MELI CAMPO RN on March 07, 2016 15:01:49 CDT From: MELI CAMPO RN ( Anticoagulation Nurse) To: NICHOLE SOTO RN; Sent: 03/07/2016 15:01:49 CDT Subject: RE: INR management Addendum by MELI CAMPO RN on March 07, 2016 15:01:41 CDT order faxed. Thank you From: NICHOLE SOTO RN To: NICHOLE SOTO RN; Anticoagulation Nurse; Sent: 03/07/2016 10:42:37 CDT Subject: INR management Pt here today for f/u INR. INR 2.4. I kept her on 2.5mg daily. Please advise pt if you would like alternative to dosage. Pt has requested to have lab draws for this and managed by your ACC in . Can you fax an order for lab draws here to [facility] lab. Thanks! Nichole Source: [employer] POWERCHART Document Id: [id number] Miscellaneous - Conversion, Historical Provider Ser - 03/07/2016 10:17 AM CDT Anticoagulation Patient Intake Anticoagulation Patient Intake Entered On: 03/07/2016 10:19 CDT Performed On: 03/07/2016 10:17 CDT by NICHOLE SOTO RN Plan INR goal range : 2.0 - 3.0 Duration of Therapy : Lifelong Tablet Size : 2 mg, 5 mg NICHOLE SOTO RN - 03/07/2016 10:17 CDT NICHOLE SOTO RN - 03/07/2016 10:17 CDT Anticoagulation Management [...] : NICHOLE Mccormack RN - 03/07/2016 10:17 CDNICHOLE RODRIGUEZ RN - 03/07/2016 10:17 NICHOLE CARBAJAL RN - 03/07/2016 10:17 CDT NICHOLE SOTO RN - 03/07/2016 10:17 CDT Date : [...] NICHOLE Tate RN - 03/07/2016 10:17 CDT MAULIKChantalNICHOLE HANSEN Javier RN - 03/07/2016 10:17 CDT MAULIKChantalNICHOLE HANSEN Javier RN - 03/07/2016 10:17 CDT MAULIKChantalNICHOLE HANSEN Javier RN - 03/07/2016 10:17 CDT Date : [...] by : darya lackey LM /pharmacy NICHOLE SOTO Javier RN - 03/07/2016 10:17 CDT CHARLESMARIA LMarsha Herrera RN - 03/07/2016 10:17 CDT NICHOLE SOTO RN - 03/07/2016 10:17 CDT CHARLES NICHOLE Javier RN - 03/07/2016 10:17 CDT Date : 04/17/2014 CDT 04/24/2014 CDT 05/01/2014 STOCK SORTER 05/15/2014 STOCK SORTER Location of INR sample : Lab Lab Lab Lab Type of Sample : Venous Venous Venous Venous INR Result : 2.2 3.0 2.4 1.8 Warfarin Dose : 5mg Mon, 2.5mg all other days 5mg MON with 2.5mg all other days - eat a salad today 5mg Mon and 2.5mg all other days 5mg 11/20 then 5mg Mon, 2.5mg all other days Total Weekly Warfarin Dose : 20 20 20 20 Comment : Called to mom/Fabiola, no changes, mom wondering if when splitting the pills not cut exactlyin half so may have gotten extra some days, mom looked at pills & recut them if needed, will trynoted dose called to mom Fabiola [phone] called to Fabiola/no changes Called to mother/Fabiola, not awareof any changes Recommend Recheck : One week One week Two weeks Two weeks Plan completed by : NICHOLE HARRY RN - 03/07/2016 10:17 CDT NICHOLE SOTO RN - 03/07/2016 10:17 CDT NICHOLE SOTO RN - 03/07/2016 10:17 CDT NICHOLE SOTO RN - 03/07/2016 10:17 CDT Date : 06/03/2014 STOCK SORTER 06/05/2014 STOCK SORTER 06/10/2014 STOCK SORTER 06/11/2014 STOCK SORTER Location of INR sample : Lab Type [...] Fabiola granados. Dorita will be staying in [place] 2wks post-surgery & have INR drawn there. She will resume normal dosing after surgery. Preop today w/aranza Mkceon 06/11, to bridge w/Lovenox post surg, will [...] : NICHOLE ALEJANDRO RN - 03/07/2016 10:17 CDT NICHOLE SOTO RN - 03/07/2016 10:17 CDT NICHOLE SOTO RN - 03/07/2016 10:17 CDT NICHOLE SOTO RN - 03/07/2016 10:17 CDT Date : 06/14/2014 STOCK SORTER 06/14/2014 STOCK SORTER 06/16/2014 STOCK SORTER 06/23/2014 STOCK SORTER Location of INR sample : Clinic Lab Lab Type of Sample : Venous Venous INR Result : 1.3 on 06/13 2.4 faxed from lab 2.0 Warfarin Dose : (pt took 2.5mg 06/13) 5mg Sat and 5mg Sun (06/14 and 06/15) 5mg Mon and 2.5mg all other days 5mg Mon and 2.5mg all other days Total Weekly Warfarin Dose : 20 20 Comment : [place] lab called with INR result from 06/13, reported they left a message with Dr. Henriquez and hadn't heard back, spoke with mother, Fabiola, and gave doses, continue Lovenox and repeat INR 06/16, message left with INR clinic in to contact CF Please contact [place] lab on 06/16 for result and may call Fabiola at [phone] with instructions call to Fabiola/will stop Lovenox injections and take noted dose/pt has an appt here in 06/23 so will do lab appt here that day Called to Fabiola/ Dorita will be back at [facility] by next draw. will have done on . no changes to meds/diet. Recommend Recheck : Two days One week Two weeks Plan completed by : NICHOLE Carrion LM RN - 03/07/2016 10:17 PATRICIAT NICHOLE SOTO RN - 03/07/2016 10:17 NICHOLE CARBAJAL RN - 03/07/2016 10:17 PATRICIAT NICHOLE SOTO RN - 03/07/2016 10:17 CDT Date : 07/10/2014 STOCK SORTER 07/17/2014 STOCK SORTER 07/31/2014 STOCK SORTER 09/11/2014 CDT Location of INR sample : [...] : NICHOLE Bell RN - 03/07/2016 10:17 NICHOLE CARBAJAL RN [...] Norwood RN - 03/07/2016 10:17 CDT NICHOLE SOTO RN - 03/07/2016 10:17 CDT NICHOLE SOTO RN - 03/07/2016 10:17 CDT NICHOLE SOTO RN - 03/07/2016 10:17 CDT Date : [...] is she is 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 [employer]/no bleeding/consult with Quintin/Pharmacy and called Mom with orders Per Meredith Hernandez, no changes, has been drinking some Kiwi Juice, no bleeding/consult with Quintin/Pharmacy Called to mom /Fabiola, no changes, rev'd w/BCarlson/Pharmacy Recommend Recheck : Three weeks One week One week One week Plan completed by : NICHOLE Sawyer RN - 03/07/2016 10:17 CDT NICHOLE SOTO RN - 03/07/2016 10:17 CDT NICHOLE SOTO RN - 03/07/2016 10:17 CDT NICHOLE SOTO RN - 03/07/2016 10:17 CDT Date : [...] : NICHOLE Kwon RN - 03/07/2016 10:17 CDNICHOLE RODRIGUEZ RN - 03/07/2016 10:17 CDT NICHOLE SOTO RN - 03/07/2016 10:17 NICHOLE CARBAJAL RN [...] : NICHOLE MUÑIZ RN - 03/07/2016 10:17 NICHOLE CARBAJAL RN - 03/07/2016 10:17 CDT NICHOLE SOTO RN - 03/07/2016 10:17 PATRICIAT NICHOLE SOTO RN - 03/07/2016 10:17 CDT Date : 04/09/2015 CDT 05/07/2015 STOCK SORTER 06/04/2015 STOCK SORTER 07/02/2015 STOCK SORTER Location of INR sample : Lab Lab [...] : NICHOLE Blanca RN - 03/07/2016 10:17 NICHOLE CARBAJAL RN - 03/07/2016 10:17 NICHOLE CARBAJAL RN - 03/07/2016 10:17 NICHOLE CARBAJAL RN - 03/07/2016 10:17 CDT Date : 08/06/2015 STOCK SORTER 09/17/2015 CDT 10/29/2015 CDT 11/12/2015 CDT Location [...] Priest RN - 03/07/2016 10:17 CDT NICHOLE SOTO RN - 03/07/2016 10:17 CDT NICHOLE SOTO RN - 03/07/2016 10:17 CDT NICHOLE SOTO RN - 03/07/2016 10:17 CDT Date : [...] Bernardo RN - 03/07/2016 10:17 CDT NICHOLE SOTO RN - 03/07/2016 10:17 CDT NICHOLE SOTO RN - 03/07/2016 10:17 CDT NICHOLE SOTO RN - 03/07/2016 10:17 CDT Date : [...] Brizuela, PharmMichaelD. BAUDILIO, PharmD Eliseo Quezada, Alida. NICHOLE SOTO Javier RN - 03/07/2016 10:17 CDT NICHOLE SOTO Javier RN - 03/07/2016 10:17 CDT MAULIKChantalTYRONELEONORANICHOLE S RN - 03/07/2016 10:17 CDT MAULIKChantalTYRONE NICHOLE Javier RN - 03/07/2016 10:17 CDT Date : [...] Quezada, PharmValentina. Eliseo Quezada, PharmValentina. Tyshawn Brizuela, Pharm.D. Eliseo Quezada, Alida. NICHOLE SOTO RN - 03/07/2016 10:17 CDT NICHOLE SOTO RN - 03/07/2016 10:17 CDT NICHOLE SOTO RN - 03/07/2016 10:17 CDT NICHOLE SOTO RN - 03/07/2016 10:17 CDT Date : [...] : Pt being discharged on Bactrim. Will cigar packer and picker rx for 2 mg tabs On bactrim 2 days left, has f/u in [place] on Monday. Pt mother states plan to return to [facility] on 03/06. 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 : DVT Lower, Other: Deep Phlebitis-Leg NEC CHADS2 Score Date : 09/05/2013 CDT NICHOLE SOTO RN - 03/07/2016 10:25 CDT Changes / Problems Changes/Problems Since Last Visit : None Been Scheduled For : None Missed Coumadin Doses : None Change In Intake : None Change In Medication : None Have You Had : None Plans to Travel : No NICHOLE SOTO RN - 03/07/2016 10:25 CDT Education Reg STK Discharge Info Anticoag Specific : Anticoagulation follow-up monitoring of warfarin post-discharge NICHOLE SOTO RN - 03/07/2016 10:25 CDT Source: [employer] POWERCHART Document Id: [id number] CDT!659 Miscellaneous - Conversion, Historical Provider Ser [...] MARIE LANCE MD 03/07/2016 10:18:09 From: NICHOLE SOTO RN To: MARIE LANCE MD; Sent: 03/07/2016 09:34:41 CDT Subject: hx of DVT needs ACC order. On hold pending signature Order:Anticoagulation Clinic Order Details: 03/07/2016 9:32 CDT, 03/30/2016 9:32 CDT, 2 - 3, g. 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 she s temporarily staying with family in [facility], would like management in our ACC during this time. Was inpatient recently. Does have ACC order from but need one for in house ACC. Source: [facility] POWERCHART Document Id: [id number] documented in this encounter Plan of Treatment Upcoming Encounters Date Type Specialty Care Team Description 06/22/2022 Appointment Laboratory Medicine Rusty Vee M.D. [address] [place] [phone] 06/22/2022 Diagnostic Pulmonary Medicine Rusty Vee M.D. [address] [place] [phone] 06/22/2022 Diagnostic Pulmonary Medicine Rusty Vee M.D. [address] [place] [phone] 06/22/2022 Appointment Radiology Rusty Vee M.D. [address] [place] [phone] 06/23/2022 Clinical Communication Admitting/Central Scheduling 06/28/2022 Appointment Pulmonary Medicine Rusty Vee M.D. [address] [place] [phone] 06/28/2022 Appointment Pulmonary Medicine Rusty eVe M.D. [address] [place] [phone] documented as of this encounter Procedures Procedure [...]
--- OUTSIDE RECORDS SUMMARY | 2022-05-25 21:06 | XMS_ITS | Encounter Summary ---
:1975 Author Organization [facility] Address [address] [place] [address] Care Team Providers Name Role Phone Unavailable Primary Care Provider Unavailable Encounter Details Date Type Department Care Team Description 03/11/2016 Hospital Encounter HX [facility] Marsha Garibay M.D. [address] [place], [place] [address] (Wo rk) Social History [...] at Date Recorded Female 05/03/2022 7:07 PM CHECKROOM ATTENDANT documented as of this encounter Last Filed [...] Appointment Laboratory Medicine Rusty Vee M.D. [address] [place] [phone] 06/22/2022 Diagnostic Pulmonary Medicine Rusty Vee M.D. [address] [place] [phone] 06/22/2022 Diagnostic Pulmonary Medicine Rusty Vee M.D. [address] [place] [phone] 06/22/2022 Appointment Radiology Rusty Vee M.D. [address] [place] [phone] 06/23/2022 Clinical Communication Admitting/Central Scheduling 06/28/2022 Appointment Pulmonary Rusty Mattson M.D. [address] [place] [phone] 06/28/2022 Appointment Pulmonary Medicine Rusty Vee M.D. [address] [place] [phone] documented as of this encounter Procedures Procedure Name Priority Date/Time Associated Comments Diagnosis PROTHROMBIN TIME Routine 03/11/2016 10:39 Results for this (PT), P AM CDT procedure are i n the results section. documented in this encounter Results (ABNORMAL) PT (Prothrombin Time) with INR (03/11/2016 10:39 AM CDT) [facility] Method Time Signature Prothrombin 24.5 (H) [...]
--- OUTSIDE RECORDS SUMMARY | 2022-05-25 21:06 | XMS_ITS | Encounter Summary ---
:1975 Author Organization [facility] Address [address] [place] [address] Care Team Providers Name Role Phone Unavailable Primary Care Provider Unavailable Encounter Details Date Type Department Care Team Description 03/04/2016 Hospital Encounter HX [facility] Marsha Henriquez M.D. [address] [place], [place] [address] (Wo rk) Social History [...] or relatives? How often do you attend religion or More than 4 times per year 05/04/2022 adventist services? 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 documented as of this encounter Last Filed [...] : darya BURGESS MELI Carroll RN - 03/04/2016 16:28 CDT [...] a long time, no bleeding now left [facility] [place] for Fabiola,call if changes Recommend Recheck : [...] lackey LM /pharmacy MELI CAMPO RN - 03/04/2016 16:28 CDT MELI CAMPO RN - 03/04/2016 16:28 CDT MELI CAMPO - 03/04/2016 16:28 CDT MELI CAMPO RN - 03/04/2016 16:28 CDT Date : 04/17/2014 CDT 04/24/2014 CDT 05/01/2014 PANTRY GOODS WORKER 05/15/2014 PANTRY GOODS WORKER Location of INR sample : Lab [...] will trynoted dose called to mom Fabiola [phone] called to Fabiola/no changes Called to mother/Fabiola, not awareof any changes Recommend Recheck : One week One week Two weeks Two weeks Plan completed by : MELI LEON RN - 03/04/2016 16:28 CDT MELI CAMPO RN - 03/04/2016 16:28 CDMELI CHERRY - 03/04/2016 16:28 CDT MELI CAMPO RN - 03/04/2016 16:28 CDT Date : 06/03/2014 PANTRY GOODS WORKER 06/05/2014 PANTRY GOODS WORKER 06/10/2014 PANTRY GOODS WORKER 06/11/2014 PANTRY GOODS WORKER Location of INR sample : Lab [...] Called to mother/Fabiola. Per message from Dr. Henriquze, stop coumadin 5days prior to surgery (06/06) with no bridging. Called motherFabiola. Hue will be staying in [place] 2wks post-surgery & have INR drawn there. [...] lovenox tomorrow AM as ordered. INR in [place] for next several weeks as pt will be recovering there. Recommend Recheck : Other: depending on Dr. Henriquez's preop. Other: 06/18 Other: 06/13/14 Plan completed by : MELI ROSADO RN - 03/04/2016 16:28 CDT MELI CAMPO RN - 03/04/2016 16:28 CDT MELI CAMPON - 03/04/2016 16:28 CDT MELI CAMPO RN - 03/04/2016 16:28 CDT Date : 06/14/2014 PANTRY GOODS WORKER 06/14/2014 PANTRY GOODS WORKER 06/16/2014 PANTRY GOODS WORKER 06/23/2014 PANTRY GOODS WORKER Location of INR sample : Clinic [...] Warfarin Dose : 20 20 Comment : [place] lab called with INR result from 06/13, reported they left a message with Dr. Henriquez and hadn't heard back, spoke with mother, Fabiola, and gave doses, continue Lovenox and repeat INR 06/16, message left with INR clinic in [place] to contact CF Please contact [place] lab on 06/16 for result and may call Fabiola at [phone] with instructions call to Fabiola/will stop Lovenox injections and take noted dose/pt has an appt here in [place] 06/23 so will do lab appt here that day Called to Fabiola/ Hue will be back at [facility] by next draw. will have done on . no changes to meds/diet. Recommend Recheck : Two days One week Two weeks Plan completed by : MELI Vazquez LM, RN - 03/04/2016 16:28 CDT MELI CAMPO RN - 03/04/2016 16:28 CDT MELI CAMPON - 03/04/2016 16:28 CDT MELI CAMPO RN - 03/04/2016 16:28 CDT Date : 07/10/2014 PANTRY GOODS WORKER 07/17/2014 PANTRY GOODS WORKER 07/31/2014 PANTRY GOODS WORKER 09/11/2014 CDT Location of INR sample [...] completed by : MELI Rubi RN - 03/04/2016 16:28 CDT MELI CAMPO [...] per Mom/nochanges or missed doses Called to David/Fabiola, no changes, rev'd w/[place]/Pharmacy called to Mom/Fabiola, [...] Quintin/Pharmacy and called Mom with orders Per David Meredith, no changes, has been drinking some [...] week Two weeks Plan completed by : MEIL Shirley RN - 03/04/2016 16:28 CDT MELI [...] completed by : MELI CAMPOS RN - 03/04/2016 16:28 CDT MELI CAMPO RN - 03/04/2016 16:28 CDT MELI CAMPO - 03/04/2016 16:28 PATRICIAT MELI CAMPO RN - 03/04/2016 16:28 CDT Date : 04/09/2015 CDT 05/07/2015 PANTRY GOODS WORKER 06/04/2015 PANTRY GOODS WORKER 07/02/2015 PANTRY GOODS WORKER Location of INR sample : Lab [...] completed by : MELI Keating RN - 03/04/2016 16:28 CDT MELI CAMPO RN - 03/04/2016 16:28 MELI ESQUIVEL - 03/04/2016 16:28 CDT MELI CAMPO RN - 03/04/2016 16:28 CDT Date : 08/06/2015 PANTRY GOODS WORKER 09/17/2015 CDT 10/29/2015 CDT 11/12/2015 CDT [...] 16:28 CDT MELI CAMPO - 03/04/2016 16:28 MELI ESQUIVEL RN - 03/04/2016 16:28 CDT Date : [...] 02/22/2016 CDT Location of INR sample : [facility] Type of Sample [...] Brizuela, PharmJaime ASTUDILLO, PharmD Eliseo Quezada PharmD. MELI CAMPO RN - 03/04/2016 16:28 CDT MELI CAMPO RN - 03/04/2016 16:28 CDT MELI CAMPO ANAN - 03/04/2016 16:28 CDT MELI CAMPO RN - 03/04/2016 16:28 CDT Date : 02/23/2016 CDT 02/24/2016 CDT 02/25/2016 CDT 02/26/2016 CDT Location of INR sample : [facility] Type of Sample [...] by : Eliseo Quezada, Alida. Eliseo Quezada, PharmDMichael Brizuela, Pharm.DRea MachadoD. MELI CAMPO RN - 03/04/2016 16:28 CDT [...] Pt being discharged on Bactrim. Will order picker rx for 2 mg tabs On bactrim 2 days left, has f/u in [place] on Monday. Pt mother states plan to return to [facility] on 03/06. next f/u will be in [facility]. 2mg TuWTh Rev'd with Jelly/Pharmacist,called to mom/Fabiola pt done with Bactrizuir Henriquez today pt is going back to [...] CAMPO RN - 03/04/2016 16:28 CDT Source: [facility] [employer] Document Id: [id number] CDT![id number] Miscellaneous - Meli Campo R.N. - 03/04/2016 2:24 PM CDT Results Notification From: MELI CAMPO RN ( Anticoagulation Nurse) To: Anticoagulation Nurse; Sent: 03/04/2016 14:24:25 CDT Show up: 03/04/2016 14:25:00 CDT Subject: Results Notification Results: Date Result Name Value Ref Range 03/04/2016 12:57 PT 24.1 second(s) (8.7 - 11.8) 03/04/2016 12:57 INR 2.2 INR (0.9 - 1.1) Source: [facility] [employer] Document Id: [id number] Electronically signed by Conversion, [facility] Farmworker Fruit [id number] at 11/20/2016 5:43 AM CDT documented in this encounter Plan of Treatment Upcoming Encounters Date Type Specialty Care Team Description 06/22/2022 Appointment Laboratory Medicine Rusty Vee M.D. [address] [place] [phone] 06/22/2022 Diagnostic Pulmonary Medicine Rusty Vee M.D. [address] [place] [address] [phone] 06/22/2022 Diagnostic Pulmonary Medicine Rusty Vee M.D. [address] [place] [phone] 06/22/2022 Appointment Radiology Rusty Vee M.D. [address] [place] [phone] 06/23/2022 Clinical Communication Admitting/Central Scheduling 06/28/2022 Appointment Pulmonary Medicine Rusty Vee M.D. [address] [place] [address] [phone] 06/28/2022 Appointment Pulmonary Medicine Rusty Vee M.D. [address] [place] [phone] documented as of this encounter Procedures Procedure Name Priority Date/Time Associated Comments Diagnosis PROTHROMBIN TIME Routine 03/04/2016 12:57 Results for this (PT), P PM CDT procedure are i n the results section. documented in this encounter Results (ABNORMAL) PT (Prothrombin Time) with INR (03/04/2016 12:57 PM CDT) [facility] Method Time Signature Prothrombin 24.1 (H) [...]
--- OUTSIDE RECORDS SUMMARY | 2022-05-25 21:06 | XMS_ITS | Encounter Summary ---
:1975 Author Organization [facility] Address [address] [place] [id number] Care Team Providers Name Role Phone Unavailable Primary Care Provider Unavailable Encounter Details Date Type Department Care Team Description 03/04/2016 Hospital Encounter [facility]X [facility] Marsha Contreras M.D. [address] [place], [place] [address] (Wo rk) Social History [...] at Date Recorded Female 05/03/2022 7:07 PM BOTTOM LINER documented as of this encounter Last Filed [...] to gain weight. Today they met with geriatric personal care aide at [facility] who will work with Beulah in getting [...] about Mom's meals or other foods. Source: [facility] POWERCHART Document Id: [id number] documented in this encounter Plan of Treatment Upcoming Encounters Date Type Specialty Care Team Description 06/22/2022 Appointment Laboratory Medicine Rusty Vee M.D. [address] [place] [phone] 06/22/2022 Diagnostic Pulmonary Medicine Rusty Vee M.D. [address] [place] [phone] 06/22/2022 Diagnostic Pulmonary Medicine Rusty Vee M.D. [address] [place] [phone] 06/22/2022 Appointment Radiology Rusty Vee M.D. [address] [place] [phone] 06/23/2022 Clinical Communication Admitting/Central Scheduling 06/28/2022 Appointment Pulmonary Medicine Rusty Vee M.D. [address] [place] [phone] 06/28/2022 Appointment Pulmonary Medicine Rusty Vee M.D. [address] [place] [phone] documented as of this encounter Visit Diagnoses Not on filedocumented in this encounter
--- OUTSIDE RECORDS SUMMARY | 2022-05-25 21:06 | XMS_ITS | Encounter Summary ---
:1975 Author Organization [facility] Address [address] [place] [address] Care Team Providers Name Role Phone Unavailable Primary Care Provider Unavailable Encounter Details Date Type Department Care Team Description 03/31/2016 Hospital Encounter HX [facility] Marsha Henriquez M.D. 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 - 03/31/2016 11:24 AM CDT Anticoagulation Patient [...] Date : 04/17/2014 CDT 04/24/2014 CDT 05/01/2014 POWER PRESS SUPERVISOR 05/15/2014 POWER PRESS SUPERVISOR Location of INR sample : Lab [...] will trynoted dose called to mom Fabiola [phone] called to Fabiola/no changes Called to mother/Fabiola, not awareof any changes Recommend Recheck : One week One week Two weeks Two weeks Plan completed by : KHADAR HACKETT RN - 03/31/2016 11:24 CDT KHADAR BANDA RN - 03/31/2016 11:24 CDT KHADAR BANDA RN - 03/31/2016 11:24 CDT KHADAR BANDA RN - 03/31/2016 11:24 CDT Date : 06/03/2014 POWER PRESS SUPERVISOR 06/05/2014 POWER PRESS SUPERVISOR 06/10/2014 POWER PRESS SUPERVISOR 06/11/2014 POWER PRESS SUPERVISOR Location of INR sample : Lab [...] Called motherFabiola. Hue will be staying in [place] 2wks post-surgery & have INR drawn there. [...] lovenox tomorrow AM as ordered. INR in [place] for next several weeks as pt will be recovering there. Recommend Recheck : Other: depending on Dr. Henriquez's preop. Other: 06/18 Other: 06/13/14 Plan completed by : KHADAR SANDERS RN - 03/31/2016 11:24 CDT KHADAR BANDA RN - 03/31/2016 11:24 CDT KHADAR BANDA RN - 03/31/2016 11:24 CDT KHADAR BANDA RN - 03/31/2016 11:24 CDT Date : 06/14/2014 POWER PRESS SUPERVISOR 06/14/2014 POWER PRESS SUPERVISOR 06/16/2014 POWER PRESS SUPERVISOR 06/23/2014 POWER PRESS SUPERVISOR Location of INR sample : Clinic [...] Warfarin Dose : 20 20 Comment : [place] lab called with INR result from 06/13, reported they left a message with Dr. Henriquez and hadn't heard back, spoke with mother, Fabiola, and gave doses, continue Lovenox and repeat INR 06/16, message left with INR clinic in to contact CF Please contact [place] lab on 06/16 for result and may call Fabiola at [phone] with instructions call to Fabiola/will stop Lovenox [...] - 03/31/2016 11:24 CDT Date : 07/10/2014 POWER PRESS SUPERVISOR 07/17/2014 POWER PRESS SUPERVISOR 07/31/2014 POWER PRESS SUPERVISOR 09/11/2014 CDT Location of INR sample [...] is she is 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 [employer]/no bleeding/consult with Quintin/Pharmacy and called Mom with [...] Called to Mom/Fabiola, no changes Called to Mom/Afbiola, no changes Recommend Recheck : Other: 02/26/15 One week Two weeks Three weeks Plan completed by : KHADRA SLOAN RN - 03/31/2016 11:24 CDT KHADAR BANDA RN - 03/31/2016 11:24 CDT KHADAR BANDA RN - 03/31/2016 11:24 CDT KHADAR BANDA RN - 03/31/2016 11:24 CDT Date : 04/09/2015 CDT 05/07/2015 POWER PRESS SUPERVISOR 06/04/2015 POWER PRESS SUPERVISOR 07/02/2015 POWER PRESS SUPERVISOR Location of INR sample : Lab [...] - 03/31/2016 11:24 CDT Date : 08/06/2015 POWER PRESS SUPERVISOR 09/17/2015 CDT 10/29/2015 CDT 11/12/2015 CDT [...] JM ly JM KHADAR BANDA RN - 03/31/2016 11:24 CDT [...] CDT Location of INR sample : [facility] Type of Sample : Venous [...] Eliseo Quezada, PharmD. KHADAR BANDA RN - 03/31/2016 [...] : Pt being discharged on Bactrim. 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 Pt mother states plan to return to [facility] on 03/06. next f/u [place]. 2mg TuWTh Rev'd with Jelly/Pharmacist,called to mom/Fabiola pt done with Bactrizuri Henriquez today pt is going back to with mom for another 1-2wks,she would like INR checked in but [place] INR Clinic to follow will send msg to INR Clinic Stay on 2.5mg daily Recommend Recheck : Three days Three days, Other: in [place] Other: 03/07/16 Other: 4 days Plan completed by : ASHISH Diana RN, RNI L RN - 03/31/2016 11:24 CDT KHADAR BANDA [...] pt will be staying with sister in [facility] next week she will have INR drawn in [place] again called to Fabiola/pt to do next INR at on a ./no changes called to Fabiola/no changes Recommend Recheck : Other: 03/16/16 Other: 03/31/16(2 weeks) One month Plan completed by : KHADAR Davila RN - 03/31/2016 11:24 CDT KHADAR BANDA [...] BANDA RN - 03/31/2016 11:24 CDT Source: [employer] Document Id: [id number] CDT!685 Miscellaneous - Khadar Banda R.N. - 03/31/2016 9:30 AM CDT Results Notification From: KHADAR BANDA RN ( Anticoagulation Nurse) To: Anticoagulation Nurse; Sent: 03/31/2016 09:30:42 CDT Show up: 03/31/2016 09:31:00 CDT Subject: Results Notification Results: Date Result Name Value Ref Range 03/31/2016 08:02 PT 22.1 second(s) (8.8 - 11.9) 03/31/2016 08:02 INR 2.0 (0.9 - 1.2) Source: [facility] [employer] Document Id: [id number] Electronically signed by Lay, [facility] Feed Inspection Supervisor [id number] at 11/20/2016 9:26 AM CDT documented in this encounter Plan of Treatment Upcoming Encounters Date Type Specialty Care Team Description 06/22/2022 Appointment Laboratory Medicine Rusty Vee M.D. [address] [place] [address] [phone] 06/22/2022 Diagnostic Pulmonary Medicine Rusty Vee M.D. [address] [place] [phone] 06/22/2022 Diagnostic Pulmonary Medicine Rusty Vee M.D. [address] [place] [phone] 06/22/2022 Appointment Radiology Rusty Vee M.D. [address] [place] [address] [phone] 06/23/2022 Clinical Communication Admitting/Central Scheduling 06/28/2022 Appointment Pulmonary Medicine Rusty Vee M.D. [address] [place] [phone] 06/28/2022 Appointment Pulmonary Medicine Rusty Vee M.D. [address] [place] [phone] documented as of this encounter Procedures Procedure Name Priority Date/Time Associated Comments Diagnosis PROTHROMBIN TIME Routine 03/31/2016 8:02 AM Resul ts for this (PT), P CDT procedure are i n the results section. documented in this encounter Results (ABNORMAL) PT (Prothrombin Time) with INR (03/31/2016 8:02 AM CDT) [facility] Method Time Signature Prothrombin 22.1 (H) 8.8 [...]
--- OUTSIDE RECORDS SUMMARY | 2022-05-25 21:06 | XMS_ITS | Encounter Summary ---
:1975 Author Organization [facility] Address [address] [place] [address] Care Team Providers Name Role Phone Unavailable Primary Care Provider Unavailable Encounter Details Date Type Department Care Team Description 02/18/2016 - Hospital Encounter HX [facility] ABDIRIZAK Pembertonaravind Xu 02/21/2016 INPT/OBSRV Gabby Barba [id number] [place] [id number] Social History Tobacco Use Types Packs/Day [...] More than 4 times per year 05/04/2022 church services? Do you belong to any clubs [...] Date Recorded Female 05/03/2022 7:07 PM RN NEONATAL documented as of this encounter Last Filed [...] None CONDITION AT DISCHARGE Fair DISCHARGE DISPOSITION [facility] DISCHARGE INSTRUCTIONS/FOLLOW UP RECOMMENDATIONS Patient will continue with current medications and work on mobility. Regular diet. Follow up will be arranged after discharge from TCU. Electronically Signed By: MARTHA ARTHUR MD On: 02/21/2016 08:14 AM Source: [facility] POWERCHART Document Id: [id number] documented in this encounter Medications at Time [...] 3.23 02/20/16 Lymph Absolute: 0.77 Low 02/20/16 [place] Absolute: 0.37 02/20/16 [place] Absolute: 0.03 Low [...] ARTHUR MD On: 02/20/2016 11:33 AM Source: [employer] Document Id: [id number] Genet Baldwin, P.T. - 02/20/2016 10:06 AM [...] : Right Intensity : 5 GENET BALDWIN 02/20/2016 10:06 CDT Home Environment Living Environment : Living Situation: Home independently Current Home Treatments: None Home Devices/Equipment None Professional Skilled Services: Certified Medical Records Coder Special Services and Community Resources: None Sensory Deficits: Cognitive deficit Performed by: SAYDA ANDREWS RN-02/18/16 14:34:00 Lives In : Apartment Lives With : Alone GENET BALDWIN 02/20/2016 10:06 CDT Rehabilitation Stairs Grid Inside Stairs Outside Stairs Number of Stairs : 0 0 Comments (Comment: elevator [GENET BALDWNI 02/20/2016 10:06 CDT] ) GENET BALDWIN 02/20/2016 10:06 CDT GENET BALDWIN 02/20/2016 10:06 CDT Patient's Responsibilities : Hobbies, Housework, Work GENET BALDWIN 02/20/2016 10:06 CDT Prior Functional Level Grid [...] Balance : Good Standing Balance : Good CARONAPRIL GENET Saleh 02/20/2016 10:06 CDT Mobility Grid Roll Left : Independent Roll Right : Independent Supine to Sit : Independent Sit to Supine : Independent Scooting : Independent Sit to Stand : Standby assist Stand to Sit : Standby assist Bed to/from Chair : Standby assist Toilet Transfer : Standby assist NICOLASA GENET Boyce 02/20/2016 10:06 CDT Ambulation Level : Standby [...] Extremity : Decreased stride length, Decreased weightbearing CARONAPRIL GENET Saleh 02/20/2016 10:06 CDT Assessment Rehabilitation Potential : [...] not necessary at this time. GENET BALDWIN 02/20/2016 10:06 CDT Goals PT Patient/Caregiver Goal : Patient to be discharged from hospital into the care of her parents for the next 1-2 weeks depending upon her pain tolerance. GENET BALDWIN 02/20/2016 10:06 CDT Plan PT Frequency : Daily PT Duration : One day GENET BALDWIN 02/20/2016 10:06 CDT DC Recommendations Discharge To, Anticipated : Home with family penitentiary Equipment, Anticipated : Walker Walker Specifics : Front wheeled walker Professional Skilled Services, Anticipated : None GENET BALDWIN 02/20/2016 10:06 CDT PT Charge Registration Status - PT : Inpatient: Hospital/TCU PT Evaluation Time : 40 minute(s) Physical Therapy Evaluation Charges : Yes PT Number of Patient Visits : 1 PT Visit, Inpatient : Yes GENET BALDWIN - 02/20/2016 10:06 CDT Source: [facility] [email or web address] Document Id: [id number] CDT!92 Ximena Jara P.TMichael - 02/19/2016 4:30 PM CDT Physical Therapy [...] : Intact Basic Command Following : Intact XIMENA JARA - 02/19/2016 16:30 CDT Pain Scale Pain Scale Verbal 0-10 : Open XIMENA JARA - 02/19/2016 16:30 CDT Pain Pain Assessment Grid Pain 1 Location : Lower leg XIMENA JARA - 02/19/2016 16:30 CDT Home Environment Living Environment : Living Situation: Home independently Current Home Treatments: None Home Devices/Equipment None Professional Skilled Services: Certified Medical Records Coder Special Services and Community Resources: None Sensory Deficits: Cognitive deficit Performed by: SAYDA ANDREWS RN-02/18/16 14:34:00 Lives With : Alone (Comment: per patient. According to ED note she had been staying with her parents while she has beensick. [XIMENA JARA - 02/19/2016 16:30 CDT] ) XIMENA JARA - 02/19/2016 16:30 CDT Prior Functional Level Grid Bed Mobility : Independent (Comment: per patient [XIMENA JARA - 02/19/2016 16:30 CDT] ) Transfers : Independent Ambulation at Home : Independent Community Ambulation : Independent Stairs : Independent Car Transfers : Independent Toilet Transfers : Independent Upper Extremity Bathing : Independent Lower Extremity Bathing : Independent Upper Extremity Dressing : Independent Lower Extremity Dressing : Independent Grooming : Independent XIMENA JARA 02/19/2016 16:30 CDT Vital Signs Height : 148 cm(Converted to: 4 ft 10 inch(es)) XIMENA JARA 02/19/2016 16:30 CDT Musculoskeletal PT Range of Motion Grid Left Upper Extremity : Other Right Upper Extremity : Other Left Lower Extremity : Other Right Lower Extremity : Other XIMENA JARA 02/19/2016 16:30 CDT Left UE Range of [...] will focus on gait training. XIMENA JARA - 02/19/2016 16:30 CDT Goals PT Stand Goal [...] Time Frame : 5 day(s) XIMENA JARA - 02/19/2016 16:30 CDT Plan PT Frequency : Other: 5 days per week. PT Duration : One week PT Anticipated Treatments : Gait training XIMENA JARA - 02/19/2016 16:30 CDT DC Recommendations Discharge To, Anticipated : Home with family penitentiary Equipment, Anticipated : Walker Walker Specifics : [...] XIMENA JARA - 02/19/2016 16:30 CDT Source: [employer] Document Id: [id number] CDT!92 Xu Brasher M.D. - 02/19/2016 12:00 AM CDT [id number] Recheck on right lower extremity cellulitis. She [...] BRASHER MD On: 02/20/2016 03:07 PM Source: [facility] MHSDOLBEYNONRADSYS Document Id: [id number] documented in this encounter H&P Notes Xu Brasher M.D. - 02/18/2016 1:46 PM CDT [id number] Document Contains Addenda REVISION HISTORY February 24, [...] as documented inchart. Surgical history: Laparoscopic cholecystectomy ([id number]) on 06/11/2014 at 39 Years. AV - Atrioventricular valve operation ([id number]) on 03/29/2013 at 38 Years. Comments: 04/05/2013 10:24 - TOOTIE LOPEZ LPN Done at [facility] on 12/04/2012 at 37 Years. Papanicolaou smear taken ([id number]) on 07/19/2010 at 35 Years. 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 They would like patient to be admitted in [place] over [place] for convenience factor. We did notify [place] [facility] and [facility] Patient is clinicallystable and afebrile. 1245 [...] BRASHER MD On: 02/25/2016 10:58 PM Source: [facility] MHSDOLBEYNONRADSYS Document Id: [id number] documented in this encounter Nursing Notes Ana [...] JONAS RN On: 04/23/2016 07:49 PM Source: [employer] Document Id: [id number] Ana Jonas - 02/21/2016 4:27 AM CDT [...] JONAS RN - 02/21/2016 4:27 CDT Source: [employer] Document Id: [id number] CDT!4 Ana Jonas - 02/20/2016 9:47 PM CDT PRN Response PRN Response Entered On: 02/20/2016 21:48 CDT Performed On: 02/20/2016 21:47 CDT by ANA JONAS RN Intervention Information: tramadol Performed by ANA JONAS RN on 02/20/2016 21:05:00 CDT traMADol,50mg PO,Pain PRN Medication Effectiveness Evaluation PRN Medication Effective : Yes Post Medication Pain Assessment : 4 ANA JONAS RN - 02/20/2016 21:47 CDT Source: [employer] Document Id: [id number] CDT!4 Sabrina Medina R.N. 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 - 02/20/2016 2:09 PM [...] MEDINA RN - 02/20/2016 14:09 CDT Source: [employer] Document Id: [id number] CDT!11 Sabrina Medina R.N. - 02/20/2016 11:01 [...] MEDINA RN - 02/20/2016 11:08 CDT Source: [employer] Document Id: [id number] CDT!4 Ana Jonas - 02/20/2016 5:15 AM [...] JONAS RN - 02/20/2016 5:15 CDT Source: [employer] Document Id: [id number] CDT!7 Ana Jonas - 02/20/2016 4:09 AM [...] JONAS RN On: 02/20/2016 04:19 AM Source: [employer] Document Id: [id number] Ana Jonas - 02/19/2016 11:02 PM CDT [...] JONAS RN - 02/19/2016 23:02 CDT Source: [employer] Document Id: [id number] CDT!4 Sabrina Medina R.N. - 02/19/2016 5:13 [...] MEDINA RN On: 02/19/2016 05:18 PM Source: [facility] POWERCHART Document Id: [id number] Sabrina Medina R.N. - 02/19/2016 4:00 PM [...] MEDINA RN - 02/19/2016 16:25 CDT Source: [employer] Document Id: [id number] CDT!4 Sabrina Medina R.N. - 02/19/2016 9:50 [...] MEDINA RN - 02/19/2016 9:50 CDT Source: [employer] Document Id: [id number] CDT!4 Mabel Nair R.N. - 02/19/2016 9:25 [...] NAIR RN On: 02/19/2016 09:26 AM Source: [employer] Document Id: [id number] Stacia Stone R.N. - 02/19/2016 5:14 AM [...] STONE RN On: 02/19/2016 05:21 AM Source: [employer] Document Id: [id number] Stacia Stone R.N. - 02/19/2016 5:13 AM CDT PRN Response PRN Response Entered On: 02/19/2016 5:14 CDT Performed On: 02/19/2016 5:13 CDT by STACIA STONE RN Intervention Information: acetaminophen Performed by STACIA STONE RN on 02/19/2016 02:32:00 CDT acetaminophen,1000mg PO,Pain / Fever PRN Medication Effectiveness Evaluation PRN Medication Effective : Yes (Comment: patient sleeping [BERTHA STACIA Rodriguez RN - 02/19/2016 5:13 CDT] ) Post Medication Pain Assessment : N/A BERTHA STACIA Rodriguez RN - 02/19/2016 5:13 CDT Pain Scale Pain Scale Non-Verbal PainAD : Open BERTHA STACIA Jennifer MARCUS - 02/19/2016 5:13 CDT PAINAD Breathing : Normal breathing Negative vocalization : None Facial expression : Smiling or inexpressive Body language : Relaxed Consolability : No need to console PAINAD Score : 0 STACIA STONE RN - 02/19/2016 5:13 CDT Source: [employer] Document Id: [id number] CDT!13 Sayda Andrews R.N. - 02/18/2016 5:26 [...] ANDREWS RN - 02/18/2016 17:26 CDT Source: [employer] Document Id: [id number] CDT!4 Sayda Andrews RViktor - 02/18/2016 4:17 PM CDT Admission Note Pt admitted to hospital Acute for cellulitis in her RLE from [facility]. Lung sounds clear, heart rate regular, bowel sounds positive and normal. Pt has Downs Syndrome and is high functioning, livingon her own in [place]. Parents accompanied pt to unit via wheelchair. [...] ANDREWS RN On: 02/18/2016 04:26 PM Source: [employer] Document Id: [id number] Sayda Andrews R.N. - 02/18/2016 3:08 PM [...] ANDREWS RN - 02/18/2016 15:08 CDT Source: [employer] Document Id: [id number] CDT!6 documented in this encounter Miscellaneous Notes Miscellaneous - Conversion, Historical Provider Ser - 02/21/2016 8:02 AM CDT Coding Summary-Paper Based CODING DATE: 03/01/2016 FINAL CA [place] [facility] STATUS: Disch/Trans w/in Inst Medicare Swing Bed PAYOR: Medicare Advantage Grouper: 603 MS-DRG Cellulitis w/o RESIDENTIAL ADMIT DX: L03.115 Cellulitis of right lower limb REASON FOR VISIT DX: FINAL DX: PRINCIPAL: L03.115 Y Cellulitis of right lower limb SECONDARY: N17.9 N Acute kidney failure, unspecified Q90.9 Down syndrome, unspecified Z79.01 intermediate designer (current) use of anticoagulants R73.01 Y Impaired [...] Revised Date Saved: 02/24/2016 09:49 am Source: [facility] Document Id: [id number] Miscellaneous - Ana Jonas - 02/20/2016 7:50 [...] Yes/No : Yes Nail Bed Color : [place] Capillary Refill : Less than 2 seconds [...] : Warm Activity Tolerance : Minimal distress NIRU JONASIHSAN Boyce RN - 02/20/2016 20:12 CDT Edema Details Edema Detailed Grid Ankle Edema Left : 2+ mild/4mm ANA JONAS RN - 02/20/2016 20:12 CDT Antiembolism Device Antiembolism Device Status : Patient refused TOBIAS ANA Boyce RN - 02/20/2016 20:12 CDT Neurological Neuro Patient Stated Symptoms : None Orientation : Oriented x 3, Other: Downs Syndrome Level of Consciousness : Alert Gait : Unsteady Swallowing Difficulty/Aspiration Risk : None Last Well Time Known : Not applicable ANA JONAS RN - 02/20/2016 20:12 CDT Piasa Coma Eye Opening Response Kathleen : Spontaneously Best Verbal Response Kathleen : Oriented Best Motor Response Kathleen : Obeys simple commands Piasa Coma Score : 15 KING ANA Boyce RN - 02/20/2016 20:12 CDT Oral Assessment Lips : Smooth, pink, moist, intact Gingiva : [place], smooth, moist, intact Tongue : Smooth, pink, moist, intact Teeth : Minimal debris, mostly between teeth Saliva : Thin, watery, plentiful ANA JONAS RN - 02/20/2016 20:12 CDT Psycho/Emotional Affect/Behavior : [...] Patient Stated Symptoms : None ANA JONAS ANGELINE - 02/20/2016 20:12 CDT Integumentary Integumentary Patient Stated Symptoms : None Skin Turgor : Elastic Skin Integrity : Intact Mucous Membrane Color : [place] Mucous Membrane Description : Moist ANA JONAS - 02/20/2016 20:12 CDT Skin Abnormality/Location Grid Location : Lower leg Other: all over body, arms, butt, legs Laterality : Right Abnormality : Excoriation, Flaking, Other: tight Other: psoriasis ANA JONAS Carli - 02/20/2016 20:12 CDT ANA JONAS Carli - 02/20/2016 20:12 CDT Burring Wheel Operator Integumentary - Grid Burring Wheel Operator : Other: Tubeagrip ANA JONAS Carli - 02/20/2016 20:12 CDT Skin Color : Normal for ethnicity Skin Description : Dry Skin Temperature : Warm ANA JONAS Carli MARCUS - 02/20/2016 20:12 CDT Incision/Wound Incision/Wound Care Grid Type : Other: cellulitis Location : Lower leg Laterality : Right ANA JONAS Carli - 02/20/2016 20:12 CDT Mando Sensory Perception Mando : No impairment Moisture Mando : Rarely moist Activity Mando : Walks occasionally Mobility Mando : Slightly limited Nutrition Mando : Excellent Friction and Shear Mando : Potential problem Mando Score : 20 ANA JONAS Carli - 02/20/2016 20:12 CDT Musculoskeletal Musculoskeletal Patient Stated Symptoms : Joint swelling ANA JONAS Carli MARCUS - 02/20/2016 20:12 CDT Musculoskeletal Joint Asmt Ultragrid Joint Assessment #1 Location : Ankle, right Assessment : Edema present Range of Motion : Limited motion, active ANA JONAS Carli - 02/20/2016 20:12 CDT Musculoskeletal Strength Grid Right Lower Extremity Strength : Weak - holds for < 10 sec (arm) or < 5 sec (leg) Dorsiflexion : Moderate Toe Extension : Moderate Plantar/Palmar Flexion : Moderate Sensation : Intact ANA JONAS Carli - 02/20/2016 20:12 CDT Peripheral IV Peripheral [...] JONAS RN - 02/20/2016 20:12 CDT Source: [employer] Document Id: [id number] CDT!162 Miscellaneous - Sabrina Medina R.N. - 02/20/2016 4:22 [...] MEDINA RN - 02/20/2016 16:22 CDT Source: [employer] Document Id: [id number] CDT!6 Miscelllucian - Eliane Benjamin C.N.A. - 02/20/2016 4:00 PM CDT Adult Activities [...] BENJAMIN CNA - 02/20/2016 16:57 CDT Source: [employer] Document Id: [id number] CDT!12 [place]by - Eliane Benjamin, C.N.A. - [...] BENJAMIN CNA - 02/20/2016 17:00 CDT Source: [employer] Document Id: [id number] CDT!6 Miscellaneous - Sasha Brizuela Pharm.D., R.Ph. [...] completed by : darya BURGESS JM SASHA OgDMichael, R.Ph. - 02/20/2016 12:10 CDT SASHA BRIZUELA [...] 2.7 4.8 3.1 Warfarin Dose : 5mg mon/mon/mon and 2.5mg all other days 5mg Mon/Mon/Mon, [...] Other: 03/20/14 Plan completed by : SASHA Henson.DMichael, R.Ph. - 02/20/2016 12:10 CDT SASHA BRIZUELA [...] by : darya lackey LM /pharmacy SASHA BRIZUELA.Rohit, R.Ph. - 02/20/2016 12:10 CDT SASHA BRIZUELA Pharm.D., R.Ph. - 02/20/2016 12:10 CDT SASHA BRIZUELA Pharm.D., R.Ph. - 02/20/2016 12:10 CDT SASHA BRIZUELA.Rohit, R.Ph. - 02/20/2016 12:10 CDT Date : 04/17/2014 CDT 04/24/2014 CDT 05/01/2014 RN NEONATAL 05/15/2014 RN NEONATAL Location of INR sample : Lab Lab [...] will trynoted dose called to mom Fabiola [phone] called to Fabiola/no changes Called to mother/Fabiola, not awareof any changes Recommend Recheck : One week One week Two weeks Two weeks Plan completed by : SASHA BENTON Pharm.Rohit, R.Ph. - 02/20/2016 12:10 CDT SASHA BRIZUELA Pharm.D., R.Ph. - 02/20/2016 12:10 CDT SASHA BRIZUELA Pharm.D., R.Ph. - 02/20/2016 12:10 CDT SASHA BRIZUELA Pharm.D., R.Ph. - 02/20/2016 12:10 CDT Date : 06/03/2014 RN NEONATAL 06/05/2014 RN NEONATAL 06/10/2014 RN NEONATAL 06/11/2014 RN NEONATAL Location of INR sample : Lab Type [...] Called motherFabiola. Dorita will be staying in [place] 2wks post-surgery & have INR drawn there. [...] lovenox tomorrow AM as ordered. INR in [place] for next several weeks as pt will be recovering there. Recommend Recheck : Other: depending on Dr. Garibay's preop. Other: 06/18 Other: 06/13/14 Plan completed by : SASHA JESSICA Pharm.D., R.Ph. - 02/20/2016 12:10 CDT SASHA BRIZUELA PharmJaime, R.Ph. - 02/20/2016 12:10 CDT SASHA BRIZUELA Pharm.D., R.Ph. - 02/20/2016 12:10 CDT SASHA BRIZUELA.DMichael, R.Ph. - 02/20/2016 12:10 CDT Date : 06/14/2014 RN NEONATAL 06/14/2014 RN NEONATAL 06/16/2014 RN NEONATAL 06/23/2014 RN NEONATAL Location of INR sample : Clinic Lab Lab Type of Sample : Venous Venous INR Result : 1.3 on 06/13 2.4 faxed from lab 2.0 Warfarin Dose : (pt took 2.5mg 06/13) 5mg Sat and 5mg Sun (06/14 and 06/15) 5mg Mon and 2.5mg all other days 5mg Mon and 2.5mg all other days Total Weekly Warfarin Dose : 20 20 Comment : [place] lab called with INR result from 06/13, reported they left a message with Dr. Garibay and hadn't heard back, spoke with mother, Fabiola, and gave doses, continue Lovenox and repeat INR 06/16, message left with INR clinic in [place] to contact CF Please contact [place] lab on 06/16 for result and may call Fabiola at [phone] with instructions call to Fabiola/ramon stop Lovenox injections and take noted dose/pt has an appt here in [place] 06/23 so will do lab appt here that day Called to Fabiola/ Dorita will [facility] by next draw. will have done on . no changes to meds/diet. Recommend Recheck : Two days One week Two weeks Plan completed by : latasha OZZY LM SASHA BRIZUELA.Valentina., R.Ph. - 02/20/2016 12:10 CDT SASHA BRIZUELA.Valentina., R.Ph. - 02/20/2016 12:10 CDT SASHA BRIZUELA Pharm.D., R.Ph. - 02/20/2016 12:10 CDT SASHA BRIZUELA Pharm.D., R.Ph. - 02/20/2016 12:10 CDT Date : 07/10/2014 RN NEONATAL 07/17/2014 RN NEONATAL 07/31/2014 RN NEONATAL 09/11/2014 CDT Location of INR sample : [...] Two weeks Plan completed by : SASHA Yuen.Rohit, R.Ph. - 02/20/2016 12:10 CDT SASHA BRIZUELA.Rohit, R.Ph. - 02/20/2016 12:10 CDT SASHA BRIZUELA [...] is she is 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 Songtradr/no bleeding/consult with Quintin/Pharmacy and called Mom with orders Per Meredith Hernandez, no changes, has been drinking some Kiwi Juice, no bleeding/consult with Quintin/Pharmacy Called to castro /Fabiola, no changes, rev'd w/BCarlson/Pharmacy Recommend Recheck : Three weeks One week One week One week Plan completed by : SASHA Pedroza.Rohit, R.Ph. - 02/20/2016 12:10 CDT SASHA BRIZUELA.Valentina., R.Ph. - 02/20/2016 12:10 CDT SASHA BRIZUELA.Rohit, R.Ph. - 02/20/2016 12:10 CDT SASHA BRIZUELA.Rohit, [...] BRIZUELA.Rohit, R.Ph. - 02/20/2016 12:10 CDT SASHA BRIZUELA [...] weeks Plan completed by : SASHA LATIF PharmJaime, R.Ph. - 02/20/2016 12:10 CDT SASHA BRIZUELA Pharm.D., R.Ph. - 02/20/2016 12:10 CDT SASHA BRIZUELA Pharm.Rohit, R.Ph. - 02/20/2016 12:10 CDT SASHA BRIZUELA Pharm.D., R.Ph. - 02/20/2016 12:10 CDT Date : 04/09/2015 CDT 05/07/2015 RN NEONATAL 06/04/2015 RN NEONATAL 07/02/2015 RN NEONATAL Location of INR sample : Lab Lab [...] BRIZUELA.Rohit, R.Ph. - 02/20/2016 12:10 CDT SASHA BRIZUELA Pharm.D., R.Ph. - 02/20/2016 12:10 CDT Date : 08/06/2015 RN NEONATAL 09/17/2015 CDT 10/29/2015 CDT 11/12/2015 CDT Location [...] One week Plan completed by : INESSA LERMA ly SASHA ROBBINS Pharm.D., R.Ph. - 02/20/2016 12:10 CDT SASHA [...] : SASHA Quintana Pharm.D., R.Ph. - 02/20/2016 12:10 CDT SASHA [...] Plan completed by : Justin Dunn Pharm.D. JACOBSON, GERALD G Pharm.D., R.Ph. - 02/20/2016 12:10 CDT SASHA BRIZUELA Pharm.D., R.Ph. - 02/20/2016 12:10 CDT Source: [facility] POWERCHART Document Id: [id number] CDT!550 Miscellaneous - Sasha Brizuela Pharm.D., R.Ph. - 02/20/2016 12:08 PM CDT Anticoagulation [...] weeks Plan completed by : SASHA Hutson Pharm.D., R.Ph. - 02/20/2016 12:08 SASHA REILLY [...] : SASHA Henson Pharm.D., R.Ph. - 02/20/2016 12:08 SASHA REILLY [...] /pharmacy SASHA BRIZUELA Pharm.D., R.Ph. - 02/20/2016 12:08 CDT SASHA BRIZUELA Pharm.D., R.Ph. - 02/20/2016 12:08 CDT SASHA BRIZUELA.Rohit, R.Ph. - 02/20/2016 12:08 CDT SASHA BRIZUELA.Rohit, R.Ph. - 02/20/2016 12:08 CDT Date : 04/17/2014 CDT 04/24/2014 CDT 05/01/2014 RN NEONATAL 05/15/2014 RN NEONATAL Location of INR sample : Lab Lab [...] will trynoted dose called to mom Fabiola [phone] called to Fabiola/no changes Called to mother/Fabiola, not awareof any changes Recommend Recheck : One week One week Two weeks Two weeks Plan completed by : MARIA GUADALUPE FITCH OZZY SASHA ROBBINS.Rohit, R.Ph. - 02/20/2016 12:08 CDT SASHA BRIZUELA Pharm.D., R.Ph. - 02/20/2016 12:08 PATRICIAT SASHA BRIZUELA Pharm.D., R.Ph. - 02/20/2016 12:08 PATRICIAT SASHA BRIZUELA Pharm.D., R.Ph. - 02/20/2016 12:08 CDT Date : 06/03/2014 RN NEONATAL 06/05/2014 RN NEONATAL 06/10/2014 RN NEONATAL 06/11/2014 RN NEONATAL Location of INR sample : Lab Type [...] Called motherFabiola. Dorita will be staying in [place] 2wks post-surgery & have INR drawn there. [...] lovenox tomorrow AM as ordered. INR in [place] for next several weeks as pt will be recovering there. Recommend Recheck : Other: depending on Dr. Garibay's preop. Other: 06/18 Other: 06/13/14 Plan completed by : SASHA JESSICA Pharm.D., R.Ph. - 02/20/2016 12:08 SASHA REILLY Pharm.D., R.Ph. - 02/20/2016 12:08 CDT SASHA BRIZUELA Pharm.D., R.Ph. - 02/20/2016 12:08 SASHA REILLY Pharm.D., R.Ph. - 02/20/2016 12:08 CDT Date : 06/14/2014 RN NEONATAL 06/14/2014 RN NEONATAL 06/16/2014 RN NEONATAL 06/23/2014 RN NEONATAL Location of INR sample : Clinic Lab Lab Type of Sample : Venous Venous INR Result : 1.3 on 06/13 2.4 faxed from lab 2.0 Warfarin Dose : (pt took 2.5mg 06/13) 5mg Sat and 5mg Sun (06/14 and 06/15) 5mg Mon and 2.5mg all other days 5mg Mon and 2.5mg all other days Total Weekly Warfarin Dose : 20 20 Comment : [place] [facility] called with INR result from 06/13, reported they left a message with Dr. Garibay and hadn't heard back, spoke with mother, Fabiola, and gave doses, continue Lovenox and repeat INR 06/16, message left with INR clinic in to contact CF Please contact [place] [facility] on 06/16 for result and may call Fbaiola at [phone] with instructions call to Fabiola/will stop Lovenox injections and take noted dose/pt has an appt here in [place] 06/23 so will do lab appt here that day Called to Fabiola/ Dorita will be back at [facility] by next draw. will have done on . no changes to meds/diet. Recommend Recheck : Two days One week Two weeks Plan completed by : SASHA Birch LM, Pharm.D., R.Ph. - 02/20/2016 12:08 CDSASHA MCBRIDE Pharm.D., R.Ph. - 02/20/2016 12:08 SASHA REILLY Pharm.D., R.Ph. - 02/20/2016 12:08 SASHA REILLY Pharm.D., R.Ph. - 02/20/2016 12:08 CDT Date : 07/10/2014 RN NEONATAL 07/17/2014 RN NEONATAL 07/31/2014 RN NEONATAL 09/11/2014 CDT Location of INR sample : [...] : SASHA Yuen Pharm.Rohit, R.Ph. - 02/20/2016 12:08 CDT SASHA BRIZUELA Pharm.D., R.Ph. - 02/20/2016 12:08 CDT SASHA BRIZUELA.Rohit, R.Ph. - 02/20/2016 12:08 CDT SASHA BRIZUELA Pharm.Rohit, R.Ph. - 02/20/2016 12:08 CDT Date : [...] weeks Plan completed by : SASHA Pantoja Pharm.DMichael, R.Ph. - 02/20/2016 12:08 CDT SASHA BRIZUELA Pharm.D., R.Ph. - 02/20/2016 12:08 SASHA REILLY [...] change is she is exercising alot for [employer]/no bleeding/consult with Quintin/Pharmacy and called Mom with orders Per Meredith Hernandez, no changes, has been drinking some Kiwi Juice, no bleeding/consult with Quintin/Pharmacy Called to mom /Fabiola, no changes[facility] Recommend Recheck : Three weeks One week One week One week Plan completed by : SASHA Pedroza Pharm.D., R.Ph. - 02/20/2016 12:08 CDT SASHA BRIZUELA Pharm.D., R.Ph. - 02/20/2016 12:08 CDT SASHA BRIZUELA Pharm.D., R.Ph. - 02/20/2016 12:08 SASHA REILLY [...] : SASHA Blackman Pharm.Rohit, R.Ph. - 02/20/2016 12:08 CDT SASHA BRIZUELA.Rohit, [...] 12:08 CDT Date : 04/09/2015 CDT 05/07/2015 RN NEONATAL 06/04/2015 RN NEONATAL 07/02/2015 RN NEONATAL Location of INR sample : Lab Lab [...] : SASHA Suarez Pharm.D., R.Ph. - 02/20/2016 12:08 CDSASHA MCBRIDE Pharm.D., R.Ph. - 02/20/2016 12:08 SASHA REILLY Pharm.D., R.Ph. - 02/20/2016 12:08 SASHA REILLY Pharm.D., R.Ph. - 02/20/2016 12:08 CDT Date : 08/06/2015 RN NEONATAL 09/17/2015 CDT 10/29/2015 CDT 11/12/2015 CDT Location [...] One week Plan completed by : SASHA Bertrand.Rohit, R.Ph. - 02/20/2016 12:08 CDT SASHA BRIZUELA.Rohit, R.Ph. - 02/20/2016 12:08 CDT SASHA BRIZUELA [...] by : SASHA Quintana.Rohit, R.Ph. - 02/20/2016 12:08 CDT SASHA BRIZUELA.Rohit, [...] Plan completed by : Justin Dunn Pharm.D. JACOBSON, GERALD G Pharm.D., R.Ph. - 02/20/2016 12:08 CDT SASHA BRIZUELA Pharm.D., R.Ph. - 02/20/2016 12:08 CDT [facility] Document Id: [id number] CDT!550 Miscellaneous - Sasha Brizuela Pharm.D., R.Ph. [...] weeks Plan completed by : SASHA Hutson Pharm.Rohit, R.Ph. - 02/20/2016 12:07 CDT SASHA BRIZUELA Pharm.D., R.Ph. - 02/20/2016 12:07 CDT SASHA BRIZUELA Pharm.Rohit, R.Ph. - 02/20/2016 12:07 PATRICIAT SASHA BRIZUELA.Rohit, R.Ph. - 02/20/2016 12:07 CDT [...] : SASHA Henson Pharm.D., R.Ph. - 02/20/2016 12:07 CDT SASHA BRIZUELA Pharm.DMichael, R.Ph. - 02/20/2016 12:07 CDT SASHA BRIZUELA Pharm.DMichael, R.Ph. - 02/20/2016 12:07 CDSASHA MCBRIDE Pharm.Rohit, R.Ph. - 02/20/2016 12:07 CDT Date [...] Pharm.D., R.Ph. - 02/20/2016 12:07 CDT SASHA BRIZUELA.Valentina., R.Ph. - 02/20/2016 12:07 CDT SASHA BRIZUELA Pharm.D., R.Ph. - 02/20/2016 12:07 CDT SASHA BRIZUELA.DMichael, R.Ph. - 02/20/2016 12:07 CDT Date : 04/17/2014 CDT 04/24/2014 CDT 05/01/2014 RN NEONATAL 05/15/2014 RN NEONATAL Location of INR sample : Lab Lab [...] will trynoted dose called to mom Fabiola [phone] called to Fabiola/no changes Called to mother/Fabiola, not awareof any changes Recommend Recheck : One week One week Two weeks Two weeks Plan completed by : SASHA BENTON Pharm.D., R.Ph. - 02/20/2016 12:07 CDT SASHA BRIZUELA Pharm.D., R.Ph. - 02/20/2016 12:07 CDT SASHA BRIZUELA Pharm.Rohit, R.Ph. - 02/20/2016 12:07 CDT SASHA BRIZUELA.Rohit, R.Ph. - 02/20/2016 12:07 CDT Date : 06/03/2014 RN NEONATAL 06/05/2014 RN NEONATAL 06/10/2014 RN NEONATAL 06/11/2014 RN NEONATAL Location of INR sample : Lab Type [...] Called motherFabiola. Dorita will be staying in [place] 2wks post-surgery & have INR drawn there. [...] SASHA BRIZUELA Pharm.D., R.Ph. - 02/20/2016 12:07 PATRICIAT SASHA BRIZUELA.Rohit, R.Ph. - 02/20/2016 12:07 CDT SASHA BRIZUELA.Valentina., R.Ph. - 02/20/2016 12:07 CDT Date : 06/14/2014 RN NEONATAL 06/14/2014 RN NEONATAL 06/16/2014 RN NEONATAL 06/23/2014 RN NEONATAL Location of INR sample : Clinic Lab Lab Type of Sample : Venous Venous INR Result : 1.3 on 06/13 2.4 faxed from lab 2.0 Warfarin Dose : (pt took 2.5mg 06/13) 5mg Sat and 5mg Sun (06/14 and 06/15) 5mg Mon and 2.5mg all other days 5mg Mon and 2.5mg all other days Total Weekly Warfarin Dose : 20 20 Comment : [place] [facility] called with INR result from 06/13, reported they left a message with Dr. Garibay and hadn't heard back, spoke with mother, Fabiola, and gave doses, continue Lovenox and repeat INR 06/16, message left with INR clinic in to contact CF Please contact [place] lab on 06/16 for result and may call Fabiola at [phone] with instructions call to Fabiola/will stop Lovenox injections and take noted dose/pt has an appt here in 06/23 so will do lab appt here that day Called to Fabiola/ Dorita will be back at [facility] by next draw. will have done on . no changes to meds/diet. Recommend Recheck : Two days One week Two weeks Plan completed by : lz OZZY LM SASHA BRIZUELA Pharm.D., R.Ph. - 02/20/2016 12:07 CDT SASHA BRIZUELA Pharm.D., R.Ph. - 02/20/2016 12:07 SASHA REILLY Pharm.D., R.Ph. - 02/20/2016 12:07 SASHA REILLY Pharm.D., R.Ph. - 02/20/2016 12:07 CDT Date : 07/10/2014 RN NEONATAL 07/17/2014 RN NEONATAL 07/31/2014 RN NEONATAL 09/11/2014 CDT Location of INR sample : [...] weeks Plan completed by : SASHA Yuen Pharm.D., R.Ph. - 02/20/2016 12:07 SASHA REILLY Pharm.D., R.Ph. - 02/20/2016 12:07 SASHA REILLY Pharm.D., R.Ph. - 02/20/2016 12:07 SASHA REILLY Pharm.D., R.Ph. - 02/20/2016 12:07 CDT Date [...] Two weeks Plan completed by : SASHA Pantoja.Rohit, R.Ph. - 02/20/2016 12:07 CDT SASHA BRIZUELA Pharm.Rohit, R.Ph. - 02/20/2016 12:07 CDT SASHA BRIZUELA [...] is she is 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 [employer]/no bleeding/consult with Quintin/Pharmacy and called Mom with orders Per Meredith Hernandez, no changes, has been drinking some Kiwi Juice, no bleeding/consult with Quintin/Pharmacy Called to mom /Fabiola, no changes, rev'd w/[facility]/Pharmacy Recommend Recheck : Three weeks One week One week One week Plan completed by : SASHA Pedroza Pharm.Rohit, R.Ph. - 02/20/2016 12:07 CDSASHA MCBRIDE Pharm.Rohit, R.Ph. - 02/20/2016 12:07 PATRICIAT SASHA BRIZUELA Pharm.Rohit, R.Ph. - 02/20/2016 12:07 CDT SASHA BRIZUELA [...] Two weeks Plan completed by : SASHA BlackmanDMichael, R.Ph. - 02/20/2016 12:07 CDT SASHA BRIZUELA Pharm.D., R.Ph. - 02/20/2016 12:07 CDT SASHA BRIZUELADMichael, R.Ph. - 02/20/2016 12:07 CDT SASHA BRIZUELA [...] : SASHA LATIF Pharm.D., R.Ph. - 02/20/2016 12:07 CDSASHA MCBRIDE.Rohit, R.Ph. - 02/20/2016 12:07 PATRICIAT SASHA BRIZUELA Pharm.D., R.Ph. - 02/20/2016 12:07 SASHA REILLY Pharm.D., R.Ph. - 02/20/2016 12:07 CDT Date : 04/09/2015 CDT 05/07/2015 RN NEONATAL 06/04/2015 RN NEONATAL 07/02/2015 RN NEONATAL Location of INR sample : Lab Lab [...] : SASHA Suarez Pharm.Rohit, R.Ph. - 02/20/2016 12:07 CDT SASHA BRIZUELA.Rohit, R.Ph. - 02/20/2016 12:07 CDSASHA MCBRIDE Pharm.Rohit, R.Ph. - 02/20/2016 12:07 CDT SASHA BRIZUELA Pharm.Rohit, R.Ph. - 02/20/2016 12:07 CDT Date : 08/06/2015 RN NEONATAL 09/17/2015 CDT 10/29/2015 CDT 11/12/2015 CDT Location [...] R.Ph. - 02/20/2016 12:07 CDT SASHA BRIZUELA PharmJaime, R.Ph. - 02/20/2016 12:07 CDT Source: [facility] Channel MedsystemsCHART Document Id: [id number] CDT!532 Miscellaneous - Sabrina Medina R.N. - 02/20/2016 10:07 [...] Yes/No : No Nail Bed Color : [place] Capillary Refill : Less than 2 seconds [...] SABRINA MEDINA RN - 02/20/2016 10:07 CDT Edema Details Edema Detailed Grid Pretibial Edema Ankle Edema Pedal Edema Right : 3+ moderate/6mm 3+ moderate/6mm 3+ moderate/6mm SABRINA MEDINA RN - 02/20/2016 10:07 CDT SABRINA MEDINA RN 02/20/2016 10:07 CDT SABRINA MEDINA RN 02/20/2016 10:07 CDT Neurological Neuro Patient Stated Symptoms : None Orientation : Oriented x 3 Level of Consciousness : Alert Gait : Steady Swallowing Difficulty/Aspiration Risk : None Last Well Time Known : Not applicable SABRINA MEDINA RN - 02/20/2016 10:07 CDT Kathleen Coma Eye Opening Response Piasa : Spontaneously Best Verbal Response Kathleen : Oriented Best Motor Response Piasa : Obeys simple commands Piasa Coma Score : 15 SABRINA MEDINA RN 02/20/2016 10:07 CDT Psycho/Emotional Affect/Behavior : Calm, Cooperative, Appropriate Pain Symptoms : Yes SABRINA MEDINA RN 02/20/2016 10:07 CDT Coping Grid Family supportive and involved in care : Yes Values/Beliefs incorporated appropriately : Yes SABRINA MEDINA RN 02/20/2016 10:07 CDT Safety Grid Vision, Hearing, Mobility Adequate to Meet Safety Needs : Yes SABRINA MEDINA RN 02/20/2016 10:07 CDT Pain Scale Pain Scale Verbal 0-10 : Open SABRINA MEDINA RN 02/20/2016 10:07 CDT Pain Pain Assessment Grid Pain 1 Location : Lower leg Laterality : Right Intensity : 5 Alleviating Factors : Medication, Rest Interventions : Medications, Repositioning, Rest SABRINA MEDINA RN 02/20/2016 10:07 CDT Gastrointestinal GI Patient Stated Symptoms : Diarrhea Abdomen Description : Rounded, Symmetric Abdomen Palpation : Non-Tender, Soft Bowel Movement Last Date : 02/20/2016 CDT Bowel Sounds All Quadrants : Present Passing Flatus : Yes SABRINA MEDINA RN 02/20/2016 10:07 CDT Nutrition Appetite : Excellent Eating Difficulties : None Feeding Ability : Complete independence SABRINA MEDINA RN 02/20/2016 10:07 CDT Genitourinary Patient Stated Symptoms : None Urinary Elimination : Voiding, no difficulties Urine Color : Yellow Urine Description : Clear Urine Odor : Odorless SABRINA MEDINA RN 02/20/2016 10:07 CDT Integumentary Integumentary Patient Stated Symptoms : Fragile skin Skin Turgor : Elastic Skin Integrity : Intact Mucous Membrane Color : [place] Mucous Membrane Description : Moist SABRINA MEDINA RN 02/20/2016 10:07 CDT Skin Abnormality/Location Grid Location : Lower leg Other: all over body, arms, butt, legs Laterality : Right Abnormality : Excoriation, Flaking, Other: tight Other: psoriasis ADAMSABRINA ALLEN Hudson MARCUS - 02/20/2016 10:07 CDT ADAMSABRINA Hudson MARCUS - 02/20/2016 10:07 CDT Burring Wheel Operator Integumentary - Grid Burring Wheel Operator : Other: Tubeagrip Assessment/Action : Removed and reapplied Skin Appearance : Normal ADAMSABRINA ALLEN Hudson MARCUS 02/20/2016 10:07 CDT Skin Color : Normal for ethnicity Skin Description : Normal Skin Temperature : Warm SABRINA MEDINA Hudson MARCUS - 02/20/2016 10:07 CDT Incision/Wound Incision/Wound Care Grid Activity : Assessed Wound Type : Other: cellulitis Location : Lower leg Laterality : Right Description : Dry, Edematous Color : Red, [place] Drainage : None Surrounding Tissue : Erythema, Intact Wound Dressing : Other: Tubeagrip Neurovascular Status : Neurovascular intact distal to injury, Pulses distal to injury palpable, Skindistal to injury warm and pink SABRINA MEDINA Hudson MARCUS 02/20/2016 10:07 CDT Mando Sensory Perception Mando : No impairment Moisture Mando : Rarely moist Activity Mando : Walks occasionally Mobility Mando : Slightly limited Nutrition Mando : Adequate Friction and Shear Mando : Potential problem Mando Score : 19 ADAMSABRINA ALLEN Hudson MARCUS - 02/20/2016 10:07 CDT Musculoskeletal Musculoskeletal Patient Stated Symptoms : None Activity Tolerance : Without distress SABRINA MEDINA Hudson MARCUS - 02/20/2016 10:07 CDT Peripheral IV Peripheral IV Assess/Intervention Grid Peripheral IV #1 IV Activity : Assessment Date of Insertion : 02/18/2016 CDT IV Site : Antecubital Laterality : Left Catheter Size : 20 Site Condition : No complications Drainage Description : None Dressing/ Activity : Dry, Intact, Transparent Flow/ Patency : No complications ADAMSABRINA Hudson MARCUS - 02/20/2016 10:07 CDT Hendrich II Fall [...] MEDINA RN - 02/20/2016 10:07 CDT Source: [employer] Document Id: [id number] CDT!163 Miscellaneous - Sabrina Medina R.N. - 02/20/2016 9:14 [...] MEDINA RN - 02/20/2016 9:14 CDT Source: [employer] Document Id: [id number] CDT!16 Miscellaneous - Eliane Benjamin, C.N.A. - 02/20/2016 9:00 [...] : Good ELIANE BENJAMIN CNA - 02/20/2016 9:25 CDT Source: [employer] Document Id: [id number] CDT!8 Enriquetacelllucian - Karina Alicea RMichaelN. - 02/20/2016 5:51 AM CDT Adult Activities [...] ALICEA RN - 02/20/2016 5:51 CDT [facility] Document Id: [id number] CDT!11 Miscellaneous - Ana Jonas - 02/19/2016 9:30 PM [...] None Suction : None Airway : Patent ANA JONAS RN - 02/19/2016 22:46 CDT Cardiovascular CV Patient Stated Symptoms : None Heart Rhythm : Regular Heart Sounds ICU : S1S2 Antiembolism Device Yes/No : No Nail Bed Color : [place] Capillary Refill : Less than 2 seconds [...] ANA JONAS RN - 02/19/2016 22:46 CDT Piasa Coma Eye Opening Response Kathleen : Spontaneously Best Verbal Response Piasa : Oriented Best Motor Response Kathleen : Obeys simple commands Kathleen Coma Score : 15 ANA JONAS RN - 02/19/2016 22:46 CDT Oral Assessment Lips : Smooth, pink, moist, intact Gingiva : [place], smooth, moist, intact Tongue : Smooth, pink, [...] Needs : Yes ANA JONAS RN - 02/19/2016 22:46 CDT Pain Scale Pain Scale Verbal 0-10 : Open ANA JONAS RN - 02/19/2016 22:46 CDT Pain Pain Assessment Grid Pain 1 Location : Lower leg Laterality : Right Time Pattern : Constant Pain Radiation : No Aggravating Factors : None Alleviating Factors : Medication Associated Symptoms : None Interventions : Medications ANA JONAS RN - 02/19/2016 22:46 CDT Gastrointestinal GI Patient Stated Symptoms : None Bowel Movement Last Date : 02/19/2016 CDT ANA JONAS RN - 02/19/2016 22:46 CDT Nutrition Appetite : Good Eating Difficulties : None ANA JONAS RN - 02/19/2016 22:46 CDT Genitourinary Patient Stated Symptoms : None ANA JONAS RN - 02/19/2016 22:46 CDT Integumentary Integumentary Patient Stated Symptoms : None Skin Turgor : Elastic Skin Integrity : Intact Mucous Membrane Color : [place] Mucous Membrane Description : Moist ANA JONAS RN - 02/19/2016 22:46 CDT Skin Abnormality/Location Grid Location : Lower leg Other: all over body, arms, butt, legs Laterality : Right Abnormality : Excoriation, Flaking, Other: tight Other: psoriasis ANA JONAS RN - 02/19/2016 22:46 CDT ANA JONAS RN - 02/19/2016 22:46 CDT Skin Color : Normal for ethnicity Skin Temperature : Warm ANA JONAS RN - 02/19/2016 22:46 CDT Incision/Wound Incision/Wound Care Grid Type : Other: cellulitis Location : Lower leg Laterality : Right ANA JONAS RN - 02/20/2016 2:00 CDT Mando Sensory Perception Mando : Slightly limited Moisture Mando : Occasionally moist Activity Mando : Walks occasionally Mobility Mando : Slightly limited Nutrition Mando : Adequate Friction and Shear Mando : No apparent problem Mando Score : 18 ANA JONAS RN - 02/20/2016 2:00 CDT Musculoskeletal Musculoskeletal Patient Stated Symptoms : Joint swelling Activity Tolerance : Minimal distress ANA JONAS RN - 02/20/2016 2:02 CDT Musculoskeletal Joint [...] JONAS RN - 02/20/2016 2:08 CDT Source: [facility] Document Id: [id number] CDT!9 Miscellaneous - Eliane Benjamin, C.N.A. - 02/19/2016 3:05 PM CDT Adult Activities of Daily Living Adult Activities of Daily Living Entered On: 02/19/2016 16:26 CDT Performed On: 02/19/2016 15:05 CDT by ELIANE BENJAMIN [facility] ADLs II Hygiene Assistance Grid Back Rub : Maximum assistance Foot Care : Maximum assistance Hair Care : Moderate assistance Leeanna Care : Maximum assistance Shower : Maximum assistance Upper Body Dressing(Clothing) : Moderate assistance Lower Body Dressing(Clothing) : Moderate assistance ELIANE BENJAMINA - 02/19/2016 16:26 CDT Bowel Movement Last Date : 02/19/2016 CDT Standard Safety : Bed alarm ON, Bed in low position, Call device within reach, Gait belt, Non-Slip footwear ELIANE BENJAMIN CNA - 02/19/2016 16:26 CDT [facility] Document Id: [id number] CDT!12 Enriquetacelllucian - Sabrina Medina RKareem. - 02/19/2016 12:04 PM CDT Adult Activities [...] MEDINA RN - 02/19/2016 12:04 CDT Source: [facility] [email or web address] Document Id: [id number] CDT!5 Miscellaneous - Sabrina Medina R.N. - 02/19/2016 8:42 AM CDT Adult [...] Yes/No : No Nail Bed Color : [place] Capillary Refill : Less than 2 seconds Edema Assessment : Yes SABRINA MEDINA RN - 02/19/2016 8:42 CDT Radial Pulse, Left : 2+ Normal Radial Pulse, Right : 2+ Normal Dorsalis Pedis Pulse, Left : 2+ Normal Dorsalis Pedis Pulse, Right : 2+ Normal SABRINA MEDINA RN - 02/19/2016 8:42 CDT Skin Color : Normal for ethnicity Skin Description : Normal Skin Temperature : Warm Activity Tolerance : Without distress SABRINA MEDINA RN - 02/19/2016 8:42 CDT Edema Details Edema Detailed Grid Ankle Edema Pedal Edema Right : 3+ moderate/6mm 3+ moderate/6mm SABRINA MEDINA RN - 02/19/2016 8:42 CDT SABRINA MEDINA RN - 02/19/2016 8:42 CDT Neurological Neuro Patient Stated Symptoms : None Orientation : Oriented x 3 Level of Consciousness : Alert Gait : Steady Swallowing Difficulty/Aspiration Risk : None Last Well Time Known : Not applicable SABRINA MEDINA RN - 02/19/2016 8:42 CDT Piasa Coma Eye Opening Response Kathleen : Spontaneously Best Verbal Response Piasa : Oriented Best Motor Response Piasa : Obeys simple commands Piasa Coma Score : 15 SABRINA MEDINA RN [...] Safety Needs : Yes SABRINA MEDINA ANGELINE 02/19/2016 8:42 CDT Gastrointestinal GI Patient Stated [...] : Not intact Mucous Membrane Color : [place] Mucous Membrane Description : Moist SABRINA MEDINA ANGELINE 02/19/2016 8:42 CDT Skin Abnormality/Location Grid Location : Lower leg Other: all over body, arms, butt, legs Laterality : Right Abnormality : Excoriation, Flaking, Other: tight Other: psoriasis Comments (Comment: Applied 2 pieces of tubeagrip [ADAM SABRINA Hudson MARCUS 02/19/2016 8:42 CDT] ) ADAM SABRINA Hudson MARCUS 02/19/2016 8:42 CDT ADAMSABRINA ANGELINE 02/19/2016 8:42 CDT Skin Color : [...] warm and pink SABRINA MEDINA RN - 02/19/2016 8:42 CDT Mando Sensory Perception Mando : No impairment Moisture Mando : Occasionally moist Activity Mando : Walks occasionally Mobility Mando : Slightly limited Nutrition Mando : Adequate Friction and Shear Mando : Potential problem Mando Score : 18 SABRINA MEDINA RN - 02/19/2016 8:42 CDT Musculoskeletal Musculoskeletal Patient Stated Symptoms : None Activity Tolerance : Without distress SABRINA MEDINA RN - 02/19/2016 8:42 CDT Peripheral IV Peripheral IV Assess/Intervention Grid Peripheral IV #1 IV Activity : Assessment Date of Insertion : 02/18/2016 CDT IV Site : Antecubital Laterality : Left Catheter Size : 20 Site Condition : No complications Drainage Description : None Dressing/ Activity : Dry, Intact, Transparent Flow/ Patency : No complications SABRINA MEDINA RN - 02/19/2016 8:42 CDT Hendrich II [...] MEDINA RN - 02/19/2016 8:42 CDT [facility]OWER[facility]ART Document Id: [id number] CDT!149 Miscellaneous - Sabrina Medina R.N. - [...] MEDINA RN - 02/19/2016 7:37 CDT Source: [facility] POWERCHART Document Id: [id number] CDT!19 Miscellaneous - Stacia Stone R.N. - 02/18/2016 8:30 [...] STONE RN - 02/18/2016 23:18 CDT [facility]OWER[facility]ART Document Id: [id number] CDT!9 Miscellaneous - Stacia Stone R.N. - [...] Yes/No : No Nail Bed Color : [place] Capillary Refill : Less than 2 seconds [...] Edema Right : 2+ mild/4mm 2+ mild/4mm BERTHASTACIA ANGELINE - 02/18/2016 23:31 CDT BERTHASTACIA ANGELINE 02/18/2016 23:31 CDT Neurological Neuro Patient Stated Symptoms : None Orientation : Oriented x 3 Level of Consciousness : Alert Gait : Steady Swallowing Difficulty/Aspiration Risk : None Last Well Time Known : Not applicable BERTHASTACIA ANGELINE 02/18/2016 23:31 CDT Kathleen Coma Eye Opening Response Piasa : Spontaneously Best Verbal Response Kathleen : Oriented Best Motor Response Piasa : Obeys simple commands Kathleen Coma Score : 15 STACIA STONE ANGELINE - 02/18/2016 23:31 CDT Psycho/Emotional Affect/Behavior : Calm, Cooperative Pain Symptoms : No Feels Rested : Yes BERTHASTACIA ANGELINE 02/18/2016 23:31 CDT Coping Grid Stable mood with appropriate affect : Yes Behaviors indicate use of coping mechanism : Yes Family supportive and involved in care : Yes Values/Beliefs incorporated appropriately : Yes BERTHASTACIA ANGELINE 02/18/2016 23:31 CDT Gastrointestinal GI Patient Stated Symptoms : None Abdomen Description : Rounded, Symmetric Abdomen Palpation : Non-Tender Bowel Movement Last Date : 02/18/2016 CDT Bowel Sounds All Quadrants : Present BERTHASTACIA ANGELINE 02/18/2016 23:31 CDT Nutrition Appetite : Good Eating Difficulties : None Feeding Ability : Complete independence BERTHASTACIA 02/18/2016 23:31 CDT Genitourinary Patient Stated Symptoms : None Urinary Elimination : Voiding, no difficulties Urine Color : Yellow Urine Description : Clear Urine Odor : Odorless Bladder Distention : Absent BERTHASTACIA ANGELINE 02/18/2016 23:31 CDT Integumentary Integumentary Patient Stated Symptoms : Other: psoriasis Skin Turgor : Elastic Skin Integrity : Intact Mucous Membrane Color : Red Mucous Membrane Description : Moist BERTHASTACIA ANGELINE 02/18/2016 23:31 CDT Skin Abnormality/Location Grid Location : Lower leg Other: all over body, arms, butt, legs Laterality : Right Abnormality : Excoriation, Flaking, Other: tight Other: psoriasis Treatment : Lotion BERTHA STACIA Jennifer MARCUS 02/18/2016 23:31 CDT SMIDTSTACIA Jennifer MARCUS - 02/18/2016 23:31 CDT Skin Color : Normal for ethnicity Skin Description : Dry Skin Temperature : Warm BERTHASTACIA ANGELINE - 02/18/2016 23:31 CDT Incision/Wound Incision/Wound Care Grid [...] palpable, Skindistal to injury warm and pink BERTHASTACIA ANGELINE - 02/18/2016 23:31 CDT Mando Sensory Perception Mando : No impairment Moisture Mando : Rarely moist Activity Mando : Walks frequently Mobility Mando : No limitations Nutrition Mando : Adequate Friction and Shear Mando : Potential problem Mando Score : 21 BERTHASTACIA ANGELINE - 02/18/2016 23:31 CDT Musculoskeletal Musculoskeletal Patient Stated Symptoms : None Activity Tolerance : Minimal distress BERTHASTACIA Jennifer MARCUS - 02/18/2016 23:31 CDT Peripheral IV Peripheral IV Assess/Intervention Grid Peripheral IV #1 IV Activity : Assessment Date of Insertion : 02/18/2016 CDT IV Site : Antecubital Laterality : Left Catheter Size : 20 Site Condition : No complications Drainage Description : None Dressing/ Activity : Dry, Intact, Transparent Flow/ Patency : No complications QUEENIEPEDRO LUISSTACIA ANGELINE - 02/18/2016 23:31 CDT Hendrich II Fall [...] Fall Risk Score Hendrich II : 5 BERTHASTACIA Jennifer MARCUS - 02/18/2016 23:31 CDT Safe Patient Handling Safe Pt Handling Independent : No Safe Pt Handling Supervision/Minimal Assistance : Yes - Unmotorized Equipment Safe Pt Handling Equipment Rec : Unmotorized Equipment Repositioning Device Recommended : Yes BERTHASTACIA Jennifer MARCUS - 02/18/2016 23:31 CDT Education General Patient Education Power[employer] Topics : Pain Management, Plan of care, Safety, fall Individuals Taught : Patient Barriers to Learning : Cognitive deficit Teaching Method : Explanation Teaching Evaluation : Needs reinforcement, Verbalizes understanding STACIA STONE RN - 02/18/2016 23:31 CDT Source: [facility] [email or web address] Document Id: [id number] CDT!158 Miscellaneous - Sayda Andrews RMichaelNMichael - 02/18/2016 2:34 PM CDT Adult Admission [...] By : Patient, Father, Mother Languages : Congolese Have you received chemotherapy in last 48 [...] Comments: Comment 1: BEES ; Created By: Contributor_systemALEXIS_TOBIAS_SYJavier; Reaction Status: Active ; Category: Environment ; Substance: Bee Stings ; Type: Unknown ; Updated By: Contributor_KG garay_LASHONDA; Reviewed Date: 02/18/2016 14:37 CDT chloramphenicol containing compounds Comments: Comment 1: CHLORAMPHENICOL ; Created By: Contributor_systemKG_LASHONDA; Reaction Status: Active ; Category: Drug ; Substance: chloramphenicol containing compounds ; Type: Unknown ; Updated By: Contributor_system, [facility]_HX_ALRG_SYS; Reviewed Date: 02/18/2016 14:37 CDT quinolone antibiotics Comments: Comment 1: QUINOLONES - ciloxan eye tts ; Created By: Contributor_system, [facility]_HX_ALRG_SYS; Reaction Status: Active ; Category: Drug ; Substance: quinolone antibiotics ;Type: Unknown ; Updated By: Contributor_system, [facility]_HX_ALRG_SYS; Reviewed Date: 02/18/2016 14:37 CDT Problem List/Diagnoses (As Of: 02/18/2016 14:51:23 CDT) Problems(Active) 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: Atrioventricular canal ; Onset Date:03/26/2013 ; Recorder: TOOTIE LOPEZ LPN; Confirmation: Confirmed ; Classification: Nursing ; Code: 884462464 ; Contributor System: Enable InjectionsChart ; Last Updated: 04/05/2013 10:22 CDT ; Life Cycle Date: 04/05/2013 ; 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: Active ; Responsible Provider: TOOTIE LOPEZ LPN; Vocabulary: SNOMED CT ; Comments: 04/05/2013 10:22 - TOOTIE LOPEZ LPN defect, transitional Cellulitis, NOS (ICD-9-CM :682.9 ) Name of Problem: Cellulitis, NOS ; Recorder: TOOTIE LOPEZ LPN; Confirmation: Confirmed ; Classification: Nursing ; Code: 682.9 ; Contributor System: Enable InjectionsChart ;Last Updated: 04/05/2013 10:27 CDT ; Life [...] Nursing ; Code: 746.5 ; Contributor System: Enable InjectionsChart ; Last Updated: 04/05/2013 10:25 CDT ; [...] Nursing ; Code: 286.9 ; Contributor System: Enable InjectionsChart ; Last Updated: 09/05/2013 11:40 CDT ; 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: Active ; Vocabulary: ICD-9-CM DVT, lower extremity (ICD-9-CM :453.40 ) Name of Problem: DVT, lower extremity ; Onset Date: 2006 ; Recorder: TOOTIE LOPEZ LPN; Confirmation: Confirmed ; Classification: Nursing ; Code: 453.40 ; Contributor System: Enable InjectionsChart ; Last Updated: 04/05/2013 10:26 CDT ; Life Cycle Date: 04/05/2013 ; 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: Active ; Responsible Provider: TOOTIE LOPEZ LPN; Vocabulary: ICD-9-CM Gallstone Without Obstruction (ICD-9-CM :574.20 ) Name of Problem: Gallstone Without Obstruction ; Recorder: BELLA NULL MD; Confirmation: Confirmed ; Classification: Medical ; Code: 574.20 ; Contributor System: Enable InjectionsChart ; Last Updated: 05/29/2014 11:11 RN NEONATAL ; 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: Active ; Responsible Provider: BELLA NULL MD; Vocabulary: ICD-9-CM Impaired Fasting Glucose (ICD-9-CM :790.21 ) Name of Problem: Impaired Fasting Glucose ; Onset Date:07/22/2010 ; Confirmation: Confirmed ; Classification: Medical ; Code: 790.21 ; Contributor System: PowerChart ; Last Updated: 06/06/2014 9:13 RN NEONATAL ; 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: Active ; Vocabulary: ICD-9-CM ; Co mments: - Impaired fasting glucose Irregular Menstrual Cycle (ICD-9-CM :626.4 ) Name of Problem: Irregular Menstrual Cycle ; Onset Date: 07/28/2010 ; Confirmation: Confirmed ; Classification: Medical ; Code: 626.4 ; Contributor System: [facility]_HX_PR_UPLOAD ; Last Updated: 09/21/2013 19:06 CDT ; 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: Active ; Vocabulary: ICD-9-CM ; Comments: - Irregular menses Mitral valve regurgitation NOS (ICD-9-CM :424.0 ) Name of Problem: Mitral valve regurgitation NOS ; Recorder: TOOTIE LOPEZ LPN; Confirmation: Confirmed ; Classification: Nursing ; Code: 424.0 ; Contributor System: Capsearch ; Last Updated: 04/05/2013 10:25 CDT ; Life Cycle Date: 04/05/2013 ; 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: Active ; Responsible Provider: TOOTIE LOPEZ LPN; Vocabulary: ICD-9-CM ; Comments: 04/05/2013 10:25 - TOOTIE LOPEZ LPN unknown date of dx Mixed Hyperlipidemia (ICD-9-CM :272.2 ) Name of Problem: Mixed Hyperlipidemia ; Onset Date: 07/22/2010 ; Confirmation: Confirmed ; Classification: Medical ; Code: 272.2 ; Contributor System: Capsearch; Last Updated: 06/06/2014 9:13 RN NEONATAL ; 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: Active ; Vocabulary: [...] Merly Solomon ; Last Updated: 06/06/2014 9:13 RN NEONATAL ; 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: Active ; Vocabulary: ICD-9-CM ; Comments: - Phlebitis and thrombophlebitis of other deep vessels of lower extremities Primary Hypercoagulable State (ICD-9-CM :289.81 ) Name of Problem: Primary Hypercoagulable State ; Onset Date: 01/29/2008 ; Confirmation: Confirmed ; Classification: Medical ; Code: 289.81 ; Contributor System: [facility]_HX_PR_UPLOAD ; Last Updated: 09/21/2013 19:06 CDT ; 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: Active ; Vocabulary: ICD-9-CM ; Comments: - Protein S deficiency With elevated d-dimer Dr. Anna Riley rec: lifelong coumadin Psoriasis (ICD-9-CM :696.1 ) Name of Problem: Psoriasis ; Recorder: TOOTIE LOPEZ LPN; Confirmation: Confirmed ; Classification: Nursing ; Code: 696.1 ; Contributor System: Enable InjectionsChart ; Last Updated: 04/05/2013 10:24 CDT ; [...] anesthesia Transfusion Acceptable in Emergency : Yes Congregation/Other Objections to Blood Transfusions : No SAYDA [...] Treatments : None Professional Skilled Services : Certified Medical Records Coder Special Services and Community Resources : None [...] No Coping : Effective Stressors : None Congregation Preference : Unknown Cultural/Spiritual Practices : Caodaism SAYDA ANDREWS RN - 02/18/2016 14:34 CDT [...] Discharge To, Anticipated : Home with family penitentiary Treatments, Anticipated : None Professional Skilled Services, Anticipated : None Needs Assistance with Transportation : No Needs Assistance at Home Upon Discharge : SAYDA Chavarria RN - 02/18/2016 14:34 CDT Source: [facility] [email or web address] Document Id: [id number] CDT!4 Miscellaneous - Sayda Andrews R.N. - 02/18/2016 2:14 PM CDT Adult Admission [...] : None Airway : Patent SAYDA ANDREWS Hudson MARCUS - 02/18/2016 14:14 CDT Cardiovascular CV Patient Stated Symptoms : None Heart Rhythm : Regular Heart Sounds ICU : S1S2 Antiembolism Device Yes/No : No Nail Bed Color : [place] Capillary Refill : Less than 2 seconds Edema Assessment : Yes BERTHA ANDREWSKennedy Treviño RN - 02/18/2016 14:14 CDT Radial Pulse, Left : 2+ Normal Radial Pulse, Right : 2+ Normal Dorsalis Pedis Pulse, Left : 2+ Normal Dorsalis Pedis Pulse, Right : 1+ Thready BERTHA ANDREWSKennedy Treviño RN - 02/18/2016 14:14 CDT Skin Color : Normal for ethnicity Skin Description : Normal Skin Temperature : Warm Activity Tolerance : Without distress SHERIFGURINDER SAYDAKIP Treviño RN - 02/18/2016 14:14 CDT Edema Details Edema Detailed Grid Ankle Edema Pedal Edema Left : 1+ trace/2mm 1+ trace/2mm Right : 3+ moderate/6mm 3+ moderate/6mm SHERIFGURINDER SAYDAKIP Treviño RN 02/18/2016 14:14 CDT EVACHLOE SAYDAKIP Treviño RN 02/18/2016 14:14 CDT Neurological Neuro Patient Stated Symptoms : Other: Downs Syndrome Orientation : Oriented x 3 Level of Consciousness : Alert Gait : Steady, Wide based Swallowing Difficulty/Aspiration Risk : None Last Well Time Known : Not applicable BERTHA ANDREWSKennedy Treviño RN - 02/18/2016 14:14 CDT Kathleen Coma Eye Opening Response Kathleen : Spontaneously Best Verbal Response Kathleen : Oriented Best Motor Response Kathleen : Obeys simple commands Piasa Coma Score : 15 SHERIFGURINDER SAYDAKIP Treviño RN 02/18/2016 14:14 CDT Psycho/Emotional Pain Symptoms : Yes SHERIFGURINDER SAYDAKIP Treviño RN - 02/18/2016 14:14 CDT Coping Grid Identifies effective strategies : Yes Uses effective strategies : Yes Reports increase in psychological comfort : Yes Indicates sense of control : Yes Stressors perceived within control : Yes Stable mood with appropriate affect : Yes Behaviors indicate use of coping mechanism : Yes Family supportive and involved in care : Yes Values/Beliefs incorporated appropriately : Yes SHERIFGURINDER SAYDAKIP Treviño RN - 02/18/2016 14:14 CDT Safety Grid Vision, Hearing, Mobility Adequate to Meet Safety Needs : No SAYDA ANDREWS RN - 02/18/2016 14:14 CDT Pain Scale Pain Scale Verbal 0-10 : Open SAYDA ANDREWS Hudson MARCUS - 02/18/2016 14:14 CDT Pain Pain Assessment Grid Pain 1 Location : Lower leg Laterality : Right Intensity : 10 Aggravating Factors : Movement, Palpation Alleviating Factors : Cold therapy, Medication, Rest Interventions : Cold, Medications, Repositioning SAYDA ANDREWS Hudson MARCUS - 02/18/2016 14:14 CDT Gastrointestinal GI Patient Stated Symptoms : None Abdomen Description : Obese, Symmetric Abdomen Palpation : Non-Tender Bowel Movement Last Date : 02/18/2016 CDT Bowel Sounds All Quadrants : Present Passing Flatus : Yes SHERIFGURINDERBERTHAKennedy Treviño RN - 02/18/2016 14:14 CDT Genitourinary Patient Stated Symptoms : None Urinary Elimination : Voiding, no difficulties Bladder Distention : Absent SHERIFGURINDER SAYDA R RN - 02/18/2016 14:14 CDT Integumentary Integumentary Patient Stated Symptoms : None Skin Turgor : Elastic Skin Integrity : Not intact Mucous Membrane Color : [place] Mucous Membrane Description : Moist SHERIFGURINDER SAYDA R RN - 02/18/2016 14:14 CDT Skin Abnormality/Location Grid Location : Lower arm Other: all over body, arms, butt, legs Laterality : Right Abnormality : Excoriation, Flaking, Other: tight Other: psoriasis Treatment : Lotion SHERIFGURINDER SAYDAKIP Treviño RN - 02/18/2016 14:14 CDT SHERIFGURINDER SAYDAKIP Treviño RN - 02/18/2016 14:14 CDT Integ Note : Pt has surgical incisions from heart surgery, gall stones on right abd, and left knee from skin removal from past cellulitis. All well healed. Skin Color : Normal for ethnicity Skin Description : Normal Skin Temperature : Warm SAYDA ANDREWS Hudson MARCUS - 02/18/2016 14:14 CDT Incision/Wound Incision/Wound Care [...] Skindistal to injury warm and pink SHERIFGURINDER SAYDA R RN - 02/18/2016 14:14 CDT Mando Sensory Perception Mando : No impairment Moisture Mando : Rarely moist Activity Mando : Walks occasionally Mobility Mando : Slightly limited Nutrition Mando : Excellent Friction and Shear Mando : Potential problem Mando Score : 20 SAYDA ANDREWS RN - 02/18/2016 14:14 CDT Peripheral IV [...] ANDREWS RN - 02/18/2016 14:14 CDT Source: [facility] POWERCHART Document Id: [id number] CDT!160 Miscellaneous - Sayda Andrews R.N. - 02/18/2016 2:00 PM CDT Basic Admission [...] Comments: Comment 1: BEES ; Created By: ContributorCellectarKG garay_LASHONDA; Reaction Status: Active ; Category: Environment ; Substance: Bee Stings ; Type: Unknown ; Updated By: Viewpoint Construction SoftwaresystemKG_LASHONDA; Reviewed Date: 02/18/2016 14:56 CDT chloramphenicol containing compounds Comments: Comment 1: CHLORAMPHENICOL ; Created By: Viewpoint Construction SoftwareKG garay_LASHONDA; Reaction Status: Active ; Category: Drug ; Substance: chloramphenicol containing compounds ; Type: Unknown ; Updated By: Continuum AnalyticsKG rivera_LASHONDA; Reviewed Date: 02/18/2016 14:56 CDT quinolone antibiotics Comments: Comment 1: QUINOLONES - ciloxan eye tts ; Created By: Viewpoint Construction SoftwareKG garay_LASHONDA; Reaction Status: Active ; Category: Drug ; Substance: quinolone antibiotics ;Type: Unknown ; Updated By: Viewpoint Construction SoftwareMISTI garay; Reviewed Date: 02/18/2016 14:56 CDT Valuables/Belongings Valuables/Belongings [...] ANDREWS RN - 02/18/2016 14:53 CDT Source: [facility] [email or web address] Document Id: [id number] [id number]!27 documented in this encounter Plan of Treatment Upcoming Encounters Date Type Specialty Care Team Description 06/22/2022 Appointment Laboratory Medicine Rusty Vee M.D. [address] [place] [phone] 06/22/2022 Diagnostic Pulmonary Medicine Rusty Vee M.D. [address] [place] [phone] 06/22/2022 Diagnostic Pulmonary Medicine Rusty Vee M.D. [address] [place] [phone] 06/22/2022 Appointment Radiology Rusty Vee M.D. [address] [place] [phone] 06/23/2022 Clinical Communication Admitting/Central Scheduling 06/28/2022 Appointment Pulmonary Medicine Rusty Vee M.D. [address] [place] [phone] 06/28/2022 Appointment Pulmonary Medicine Rusty Vee M.D. [address] [place] [phone] documented as of this encounter Procedures Procedure [...] Time) with INR (02/21/2016 8:11 AM CDT) [facility] Method Time Signature Prothrombin 35.2 (H) 8.7 - 11.8 POWERCHART Time, P SECONDS INR 3.01 (H) 0.90 - 1.16 POWERCHART Specimen (Source) Anatomical Collection Method Collection Time Re ceived Time Location / / Volume Laterality Blood 02/21/2016 8:11 AM CDT Xu Brasher M.D. LAB BLOOD ADD-ON Performing Organization Address City/State/ZIP Code Phon e Number POWERCHART (ABNORMAL) Automated Differential (02/20/2016 6:30 AM CDT) [facility] Method Time Signature Absolute 3.23 1.70 - [...] CBC with Differential (02/20/2016 6:30 AM CDT) [facility] gist Method Time Signature Leukocytes 4.4 3.4 - 10.5 POWERCHART X109L Erythrocytes 3.56 (L) 3.90 - POWERCHART 5.03 [id number] Hemoglobin 11.7 (L) 12.0 - POWERCHART 15.5 [...] Time) with INR (02/20/2016 6:30 AM CDT) [facility] gist Method Time Signature Prothrombin 59.5 (H) 8.7 [...] (Comprehensive Metabolic Panel) (02/20/2016 6:30 AM CDT) [facility] Method Time Signature Alanine 39 7 - [...] MMOLL HXeGFR (MDRD) 52 (L) >=60 POWERCHART [id number] 2 eGFR Black/ >60 >=60 POWERCHART Citizen Of [place] [id number] 2 Bilirubin, Total, S 0.4 0.1 - [...] (ABNORMAL) Automated Differential (02/19/2016 7:09 AM CDT) [facility] Method Time Signature Absolute 3.29 1.70 - [...] M.D. LAB BLOOD ADD-ON Performing Organization Address City/[facility]/ZIP Code Phon e Number POWERCHART (ABNORMAL) PT (Prothrombin Time) with INR (02/19/2016 7:09 AM CDT) [facility] Method Time Signature Prothrombin 58.9 (H) 8.7 - 11.8 POWERCHART Time, P SECONDS INR 4.72 (H) 0.90 - 1.16 POWERCHART Specimen (Source) Anatomical Collection Method Collection Time Re ceived Time Location / / Volume Laterality Blood 02/19/2016 7:09 AM CDT Xu Brasher M.D. LAB BLOOD ADD-ON Performing Organization Address [facility] Phon e Number POWERCHART (ABNORMAL) CBC with Differential (02/19/2016 7:09 AM CDT) Analysis Performed At Patho logist Time Signature Leukocytes 4.7 3.4 - 10.5 POWERCHART X109L Erythrocytes 3.49 (L) 3.90 - POWERCHART 5.03 [id number] Hemoglobin 11.5 (L) 12.0 - POWERCHART 15.5 [...] M.D. LAB BLOOD ADD-ON Performing Organization Address City/[facility]/[place] [facility] [place] Number POWERCHART (ABNORMAL) BMP (Basic [...] MMOLL HXeGFR (MDRD) 38 (L) >=60 POWERCHART [id number] eGFR 46 (L) >=60 POWERCHART Black/ [id number] Citizen Of [place] Glucose 112 70 - 139 POWERCHART MGDL [...]
--- OUTSIDE RECORDS SUMMARY | 2022-05-25 21:06 | XMS_ITS | Encounter Summary ---
:1975 Author Organization [facility] Address [address] [place] [address] Care Team Providers Name Role Phone Unavailable Primary Care Provider Unavailable Encounter Details Date Type Department Care Team Description 03/01/2016 Hospital Encounter HX [facility] Andrea Whipple M.D. [address] [place], [place] [address] (Wo rk) Social History [...] More than 4 times per year 05/04/2022 evangelical services? Do you belong to any clubs [...] Date Recorded Female 05/03/2022 7:07 PM CUFF TURNER MACHINE OPERATOR documented as of this encounter Last [...] Number : [id number] Internal QC : Pass Cuvette Lot Number : [id number] Cuvette Expiration Date : 05/25/2016 CUFF TURNER MACHINE OPERATOR Comment : see intake form Total Weekly Warfarin Dose : 14 VIRGINIA BOWERS RN - 03/01/2016 11:52 CDT Source: [facility] [employer] Document Id: [id number] CDT!11 documented in this encounter Miscellaneous Notes [...] recheck on Monday when she is in [place] for a provider appt. Could you please call pt and get this scheduled? Pt mother requested to return to [facility] since stay in was temporary. Source: [facility] POWERCHART Document Id: [id number] Miscellaneous - Conversion, Historical Provider Ser - [...] Two weeks Plan completed by : VIRGINIA Mccormack RN - 03/01/2016 11:43 CDT VIRGINIA BOWERS [...] a long time, no bleeding [place] [facility] [place]call if changes Recommend Recheck [...] completed by : darya lackey LM /pharmacy VIRGINIA BOWERS RN - 03/01/2016 11:43 CDT VIRGINIA BOWERS RN - 03/01/2016 11:43 CDT VIRGINIA BOWERS RN - 03/01/2016 11:43 CDT VIRGINIA BOWERS RN - 03/01/2016 11:43 CDT Date : 04/17/2014 CDT 04/24/2014 CDT 05/01/2014 CUFF TURNER MACHINE OPERATOR 05/15/2014 CUFF TURNER MACHINE OPERATOR Location of INR sample : [...] will trynoted dose called to mom Fabiola [phone] called to Fabiola/no changes Called to mother/Fabiola, not awareof any changes Recommend Recheck : One week One week Two weeks Two weeks Plan completed by : VIRGINIA HARRY RN - 03/01/2016 11:43 CDT VIRGINIA BOWERS RN - 03/01/2016 11:43 CDT VIRGINIA BOWERS RN - 03/01/2016 11:43 CDT VIRGINIA BOWERS RN - 03/01/2016 11:43 CDT Date : 06/03/2014 CUFF TURNER MACHINE OPERATOR 06/05/2014 CUFF TURNER MACHINE OPERATOR 06/10/2014 CUFF TURNER MACHINE OPERATOR 06/11/2014 CUFF TURNER MACHINE OPERATOR Location of INR sample : [...] Called motherFabiola. Hue will be staying in [place] 2wks post-surgery & have INR drawn there. [...] lovenox tomorrow AM as ordered. INR in [place] for next several weeks as pt will be recovering there. Recommend Recheck : Other: depending on Dr. Henriquez's preop. Other: 06/18 Other: 06/13/14 Plan completed by : VIRGINIA ALEJANDRO RN - 03/01/2016 11:43 CDT VIRGINIA BOWERS RN - 03/01/2016 11:43 CDT VIRGINIA BOWERS RN - 03/01/2016 11:43 CDT VIRGINIA BOWERS RN - 03/01/2016 11:43 CDT Date : 06/14/2014 CUFF TURNER MACHINE OPERATOR 06/14/2014 CUFF TURNER MACHINE OPERATOR 06/16/2014 CUFF TURNER MACHINE OPERATOR 06/23/2014 CUFF TURNER MACHINE OPERATOR Location of INR sample : [...] Warfarin Dose : 20 20 Comment : [place] lab called with INR result from 06/13, reported they left a message with Dr. Henriquez and hadn't heard back, spoke with mother, Fabiola, and gave doses, continue Lovenox and repeat INR 06/16, message left with INR clinic in to contact CF Please contact [place] lab on 06/16 for result and may call Fabiola at [phone] with instructions call to Fabioal/will stop Lovenox injections and take noted dose/pt has an appt here in [place] 06/23 so will do lab appt here that day Called to Fabiola/ Hue will be back at [facility] by next draw. will have done on . no changes to meds/diet. Recommend Recheck : Two days One week Two weeks Plan completed by : VIGRINIA Carrion LM RN - 03/01/2016 11:43 CDT VIRGINIA BOWERS RN - 03/01/2016 11:43 CDT VIRGINIA BOWERS RN - 03/01/2016 11:43 CDT VIRGINIA BOWERS RN - 03/01/2016 11:43 CDT Date : 07/10/2014 CUFF TURNER MACHINE OPERATOR 07/17/2014 CUFF TURNER MACHINE OPERATOR 07/31/2014 CUFF TURNER MACHINE OPERATOR 09/11/2014 CDT Location of INR [...] is she is 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 [employer]/no bleeding/consult with Quintin/Pharmacy and called Mom with [...] 11:43 CDT Date : 04/09/2015 CDT 05/07/2015 CUFF TURNER MACHINE OPERATOR 06/04/2015 CUFF TURNER MACHINE OPERATOR 07/02/2015 CUFF TURNER MACHINE OPERATOR Location of INR sample : [...] BOWERS RN - 03/01/2016 11:43 CDT VIRGINIA OBWERS RN - 03/01/2016 11:43 CDT VIRGINIA BOWERS RN - 03/01/2016 11:43 CDT Date : 08/06/2015 CUFF TURNER MACHINE OPERATOR 09/17/2015 CDT 10/29/2015 CDT 11/12/2015 CDT [...] BOWERS RN - 03/01/2016 11:43 CDT VIRGINIA BOEWRS RN - 03/01/2016 11:43 CDT Date : [...] Brizuela, Pharm.D. BAUDILIO, PharmD Eliseo Quezada, PharmD. VIRGINIA BOWERS RN - 03/01/2016 11:43 CDT VIRGINIA BOWERS RN - 03/01/2016 11:43 CDT VIRGINIA BOEWRS RN - 03/01/2016 11:43 CDT VIRGINIA BOWERS [...] PharmD. Tyshawn Brizuela, Pharm.D. Eliseo Quezada, ReaD. VIRGINIA BOWERS RN - 03/01/2016 11:43 CDT [...] return to [facility] on 03/06. next f/u will be in again. 2mg TuWTh Recommend Recheck : Three days [...] BOWERS RN - 03/01/2016 11:52 CDT Source: [employer] Document Id: [id number] [id number] documented in this encounter Plan of Treatment Upcoming Encounters Date Type Specialty Care Team Description 06/22/2022 Appointment Laboratory Medicine Rusty Vee M.D. [address] [place] [phone] 06/22/2022 Diagnostic Pulmonary Medicine Rusty Vee M.D. [address] [place] [phone] 06/22/2022 Diagnostic Pulmonary Medicine Rusty Vee M.D. [address] [place] [phone] 06/22/2022 Appointment Radiology Rusty Vee M.D. [address] [place] [phone] 06/23/2022 Clinical Communication Admitting/Central Scheduling 06/28/2022 Appointment Pulmonary Medicine Rusty Vee M.D. [address] [place] [address] [place] [phone] 06/28/2022 Appointment Pulmonary Medicine Rusty Vee M.D. [address] [place] [phone] documented as of this encounter Procedures Procedure [...]
--- OUTSIDE RECORDS SUMMARY | 2022-05-25 21:06 | XMS_ITS | Encounter Summary ---
:1975 Author Organization [facility] Address [address] [place] [address] Care Team Providers Name Role Phone Unavailable Primary Care Provider Unavailable Encounter Details Date Type Department Care Team Description 03/16/2016 Hospital Encounter HX [facility] Renetta Cabral M.D. [address] [place] [phone] (Wo rk) Social History Tobacco Use [...] at Date Recorded Female 05/03/2022 7:07 PM LAV CREWMAN documented as of this encounter Last Filed [...] Laboratory Medicine Rusty Vee M.D. [address] [place] [phone] 06/22/2022 Diagnostic Pulmonary Medicine Rusty Vee M.D. [address] [place] [phone] 06/22/2022 Diagnostic Pulmonary Medicine Rusty Vee M.D. [address] [place] [phone] 06/22/2022 Appointment Radiology Rusty Vee M.D. [address] [place] [phone] 06/23/2022 Clinical Communication Admitting/Central Scheduling 06/28/2022 Appointment Pulmonary Medicine Rusty Vee M.D. [address] [place] [phone] 06/28/2022 Appointment Pulmonary Medicine Rusty Vee M.D. [address] [place] [address], [place] [phone] documented as of this encounter Procedures Procedure Name Priority Date/Time Associated Comments Diagnosis PROTHROMBIN TIME Routine 03/16/2016 10:29 Results for this (PT), P AM CDT procedure are i n the results section. documented in this encounter Results (ABNORMAL) PT (Prothrombin Time) with INR (03/16/2016 10:29 AM CDT) [facility] Method Time Signature Prothrombin 27.3 (H) [...]
--- OUTSIDE RECORDS SUMMARY | 2022-05-25 21:06 | XMS_ITS | Encounter Summary ---
:1975 Author Organization [facility] Address [address] [place] [id number] Care Team Providers Name Role Phone Unavailable Primary Care Provider Unavailable Encounter Details Date Type Department Care Team Description 03/04/2016 Hospital Encounter HX [facility] Marsha Henriquez M.D. [address] [place], [place] [address] (Wo rk) Social History [...] or relatives? How often do you attend orthodoxy or More than 4 times per year 05/04/2022 confucianism services? Do you belong to any clubs or Yes 05/04/2022 organizations such as orthodoxy groups, unions, fraternal or athletic groups, or [...] at Date Recorded Female 05/03/2022 7:07 PM PARADI TENDER documented as of this encounter Last Filed [...] Henriquez M.D. - 03/04/2016 12:45 PM CDT [id number] Patient presents with her mother and sister [...] bike. They are working hard with a outdoor fitness trainer and anutritionist to try to lose some weight. Of note is the family appreciates it when I emphasize things to carry as she apparently does not always listen to family members. Follow up then if symptoms persist or get worse. Greater than 25 minutes spent in [id number] consultation regarding above diagnoses and treatment. Tasha Henriquez M.D./erin Electronically Signed By: TASHA HENRIQUEZ MD On: 03/07/2016 07:50 AM Source: [facility] MHSDOLANNABEL Document Id: [id number] documented in this encounter Miscellaneous Notes Miscellaneous - Meli Campo RMichaelNMichael - 03/11/2016 3:06 PM CDT Anticoagulation Patient [...] completed by : MELI Vidal RN - 03/11/2016 15:06 CDMELI CHERRY RN - 03/11/2016 15:06 CDT MELI CAMPO [...] : MELI Pradhan RN - 03/11/2016 15:06 MELI ESQUIVEL RN - 03/11/2016 15:06 MELI ESQUIVEL - 03/11/2016 15:06 MELI ESQUIVEL RN - 03/11/2016 15:06 CDT Date : [...] lackey LM /pharmacy MELI CAMPO RN - 03/11/2016 15:06 CDT MELI CAMPO RN - 03/11/2016 15:06 CDT MELI CAMPO - 03/11/2016 15:06 CDT MELI CAMPO RN - 03/11/2016 15:06 CDT Date : 04/17/2014 CDT 04/24/2014 CDT 05/01/2014 PARADI TENDER 05/15/2014 PARADI TENDER Location of INR sample : Lab Lab [...] will trynoted dose called to mom Fabiola [phone] called to Fabiola/no changes Called to mother/Fabiola, not awareof any changes Recommend Recheck : One week One week Two weeks Two weeks Plan completed by : MELI LEON RN - 03/11/2016 15:06 CDT MELI CAMPO RN - 03/11/2016 15:06 CDT MELI CAMPO - 03/11/2016 15:06 CDT MELI CAMPO RN - 03/11/2016 15:06 CDT Date : 06/03/2014 PARADI TENDER 06/05/2014 PARADI TENDER 06/10/2014 PARADI TENDER 06/11/2014 PARADI TENDER Location of INR sample : Lab Type [...] Called motherFabiola. Dorita will be staying in [place] 2wks post-surgery & have INR drawn there. [...] lovenox tomorrow AM as ordered. INR in [place] for next several weeks as pt will be recovering there. Recommend Recheck : Other: depending on Dr. Henriquez's preop. Other: 06/18 Other: 06/13/14 Plan completed by : MELI ROSADO RN - 03/11/2016 15:06 PATRICIAT MELI CAMPO RN - 03/11/2016 15:06 PATRICIAT MELI CAMPON - 03/11/2016 15:06 MELI ESQUIVEL RN - 03/11/2016 15:06 CDT Date : 06/14/2014 PARADI TENDER 06/14/2014 PARADI TENDER 06/16/2014 PARADI TENDER 06/23/2014 PARADI TENDER Location of INR sample : Clinic Lab Lab Type of Sample : Venous Venous INR Result : 1.3 on 06/13 2.4 faxed from lab 2.0 Warfarin Dose : (pt took 2.5mg 06/13) 5mg Sat and 5mg Sun (06/14 and 06/15) 5mg Mon and 2.5mg all other days 5mg Mon and 2.5mg all other days Total Weekly Warfarin Dose : 20 20 Comment : [place] lab called with INR result from 06/13, reported they left a message with Dr. Henriquez and hadn't heard back, spoke with mother, Fabiola, and gave doses, continue Lovenox and repeat INR 06/16, message left with INR clinic in [place] to contact [facility] Please contact [place] lab on 06/16 for result and may call Fabiola at [phone] with instructions call to Fabiola/will stop Lovenox injections and take noted dose/pt has an appt here in [place] 06/23 so will do lab appt here that day Called to Fabiola/ Dorita will be back at [place] by next draw. will have done on . no changes to meds/diet. Recommend Recheck : Two days One week Two weeks Plan completed by : MELI Vazquez LM, RN - 03/11/2016 15:06 CDT MELI CAMPO RN - 03/11/2016 15:06 CDT MELI CAMPO - 03/11/2016 15:06 CDT MELI CAMPO RN - 03/11/2016 15:06 CDT Date : 07/10/2014 PARADI TENDER 07/17/2014 PARADI TENDER 07/31/2014 PARADI TENDER 09/11/2014 CDT Location of INR sample : [...] : MELI Rubi RN - 03/11/2016 15:06 MELI ESQUIVEL RN [...] per Mom/nochanges or missed doses Called to [place]/Fabiola, no changes, rev'd w/[place]/Pharmacy called to [place]/Fabiola, no changes Recommend Recheck : Two weeks One week One week Two weeks Plan completed by : MELI Owen RN - 03/11/2016 15:06 CDT MELI CAMPO RN - 03/11/2016 15:06 CDT MELI CAMPO - 03/11/2016 15:06 PATRICIAT MELI CAMPO RN - 03/11/2016 15:06 CDT [...] Thurs and 2.5mg all other days Hold 9/3, then 5mg Mon & Thurs, 2.5mgall other [...] : MELI CAMPOS RN - 03/11/2016 15:06 CDMELI CHERRY RN - 03/11/2016 15:06 MELI ESQUIVEL - 03/11/2016 15:06 MELI ESQUIVEL RN - 03/11/2016 15:06 CDT Date : 04/09/2015 CDT 05/07/2015 PARADI TENDER 06/04/2015 PARADI TENDER 07/02/2015 PARADI TENDER Location of INR sample : Lab Lab [...] : MELI Keating RN - 03/11/2016 15:06 CDMELI CHERRY RN - 03/11/2016 15:06 CDT MELI CAMPO - 03/11/2016 15:06 CDMELI CHERRY RN - 03/11/2016 15:06 CDT Date : 08/06/2015 PARADI TENDER 09/17/2015 CDT 10/29/2015 CDT 11/12/2015 CDT Location [...] RN - 03/11/2016 15:06 T MELI CAMPO - 03/11/2016 15:06 MELI ESQUIVEL RN - 03/11/2016 15:06 CDT Date : [...] : MELI Pickett RN - 03/11/2016 15:06 MELI ESQUIVEL RN - 03/11/2016 15:06 MELI ESQUIVEL - 03/11/2016 15:06 CDT MELI CAMPO Iris RN - 03/11/2016 15:06 CDT Date : 02/19/2016 CDT 02/20/2016 CDT 02/21/2016 CDT 02/22/2016 CDT Location of INR sample : [facility] Type of Sample : [...] Brizuela, Pharm.DMichael ASTUDILLO, PharmD Eliseo Quezada, ReaD. JAVIER MELI Simmons RN - 03/11/2016 15:06 CDT MELI CAMPO RN - 03/11/2016 15:06 CDT MELI CAMPO - 03/11/2016 15:06 CDT JAVIERNATALIIAANTONI Simmons RN - 03/11/2016 15:06 CDT Date : 02/23/2016 CDT 02/24/2016 CDT 02/25/2016 CDT 02/26/2016 CDT Location of INR sample : [facility] Type of Sample : Venous [...] by : Eliseo Quezada, PharmValentina. Eliseo Quezada, PharmDMichael Brizuela, PharmMichaelDMichael Quezada, Alida. MELI CAMPO RN - 03/11/2016 15:06 CDT MELI CAMPO RN - 03/11/2016 15:06 CDT MELI CAMPO - 03/11/2016 15:06 PATRICIAT MELI CAMPO RN - 03/11/2016 15:06 CDT [...] mother states plan to return to [place] on 03/06. next f/u will be in [facility]. 2mg TuWTh Rev'd with Jelly/Pharmacist,called to [place]/Fabiola [...] pt will be staying with sister in [facility] next week she will have [...] CAMPO RN - 03/11/2016 15:06 CDT Source: [facility] POWERCHART Document Id: [id number] CDT!658 Miscellaneous - Siomara Galicia R.N. - 03/08/2016 11:09 AM CDT Compression Stockings Document Contains Addenda Addendum by CASSIDY ADHIKARI RN on March 09, 2016 08:19:02 CDT Faxed to [facility] in [place]. Addendum by TASHA HENRIQUEZ MD on March 09, 2016 08:03:58 CDT From: TASHA HENRIQUEZ MD Sent: 03/09/2016 08:03:58 CDT Subject: RE:FW: Compression Stockings Approved Order:Rx Compression Garments Supply Message Once Jobst stockings. one pair. knee high; bilateral. medium compression (20-30mmHg) DX: R60.0 ELDER: lifetime with device to help get them on please Qty: 1 each Refills: 2 Substitutions Allowed Print - [email or web address] fax to [facility] Signed by TASHA HENRIQUEZ MD [...] each Refills: 2 Substitutions Allowed Print - [email or web address] fax to [facility] Addendum by TASHA HENRIQUEZ MD on March 08, 2016 13:18:00 CDT From: TASHA HENRIQUEZ MD To: AYDE Penny/[place]/Nandini Team Nurse (RN); Sent: 03/08/2016 13:18:00 CDT Subject: RE: Compression Stockings i thought medium compression always worked in past, but if they need specific number then please pend up with 20-30 range. thanks From: SIOMARA GALICIA RN (AYDE Penny/[place]/Nandini Team Nurse (RN)) To: TASHA HENRIQUEZ MD; Sent: 03/08/2016 11:09:55 CDT Subject: Compression Stockings Fabiola called on behalf of the patient stating that they are are [facility] in [place] and they are trying to last picker the compression stockings that were ordered on Monday03/04/2016, however theydo not include the range. Fabiola would like a new rx to be sent to [facility] so that they can last picker the stockings. Unable to pend - RN does not know the appropriate range of mmHg Callback number: [phone] Source: [facility] POWERCHART Document Id: [id number] Electronically signed by Conversion, [facility] Crew Mess Attendant [id number] at 11/20/2016 5:43 AM CDT Miscellaneous - Meli Campo RMichaelN. - 03/04/2016 4:33 PM CDT Anticoagulation From: MELI CAMPO RN ( Anticoagulation Nurse) To: VIRGINIA SOTO RN; Sent: 03/04/2016 16:33:32 CDT Subject: Anticoagulation Patient's mother would like INR drawn in but have INR Clinic monitor patient again. Patient should have INR drawn again on 03/07/16 we will look for results in [facility] on Monday. Thank you Source: [facility] POWERCHART Document Id: [id number] Electronically signed by Conversion, [facility] Crew Mess Attendant [id number] at 11/20/2016 5:43 AM CDT Miscellaneous - Tasha Henriquez M.D. - 03/04/2016 2:14 PM CDT Ambulatory Patient Summary [address], [address] [place], [place] [id number] Visit Information Name: DORITA SHEFFIELD [facility] Number: [id number] Current Date: 03/04/2016 14:14:11 [...] Youll be asked for your [facility] number which you can find at the top of this document. Your Goals/Additional instructions: Source: [facility] POWERCHART Document Id: [id number] Miscellaneous - Tasha Henriquez M.D. - 03/04/2016 2:14 PM CDT Ambulatory Discharge Medication List [facility] [address], [address] [place], [place] [id number] Visit Information Name: DORITA SHEFFIELD [facility] Number: [id number] Visit Date: 03/04/2016 14:14:10 [...] MD Signed On:04-MAR-2016 14:14:07 Additional Information: Source: [facility] POWERCHART Document Id: [id number] Miscellaneous - Dano Lopez C.MMichaelAMichael - 03/04/2016 1:39 PM CDT Adult Agricultural Mechanic Intake/History Adult Agricultural Mechanic Intake/History Entered On: 03/04/2016 13:42 CDT Performed On: 03/04/2016 13:39 CDT by [facility] Intake Chief Complaint : Hospital follow up: right lower leg cellulitis LMP Date : 03/02/2016 Ambulatory Intake Additional Information : pt and caregivers declined mammo and pap as they will reschedule with project management professor. Temperature Core : 36.4 DegC(Converted to: 97.5 [...] Mass Index : 36.8 kg/m2 [facility] - 03/04/2016 13:39 CDT General Info Information Given By : Patient Languages : Haitian Is Patient Female and 13-50 no hysterectomy : Yes Status : Patient denies Are you ? : No [facility] - 03/04/2016 13:39 CDT Subjective Pain Symptoms : Yes [facility] - 03/04/2016 13:39 CDT Pain Scale Pain Scale Verbal 0-10 : Open [facility] - 03/04/2016 13:39 CDT Pain Pain Assessment Grid Pain 1 Location : Lower leg Laterality : Right [facility] - 03/04/2016 13:39 CDT Dependent Habits Exposure to Tobacco Smoke : Other: never smoker Smoking Status : Never smoker Tobacco 2A : No Tobacco Use/Currently Using : No Tobacco Use/Last 30 Days : No Tobacco Use/Last 12 months : No [facility] - 03/04/2016 13:39 CDT Caffeine Use Grid Caffeine Use : Current Type : Soft drinks Frequency : Occasionally Amount : pop [facility] - 03/04/2016 13:39 CDT Recreational Drug Use Grid Drug Use : None [facility] - 03/04/2016 13:39 CDT Source: [employer] Document Id: [id number] CDT!51 documented in this encounter Plan of Treatment Upcoming Encounters Date Type Specialty Care Team Description 06/22/2022 Appointment Laboratory Medicine Rusty Vee M.D. [address] [place] [phone] 06/22/2022 Diagnostic Pulmonary Medicine Rusty Vee M.D. [address] [place] [phone] 06/22/2022 Diagnostic Pulmonary Medicine Rusty Vee M.D. [address] [place] [phone] 06/22/2022 Appointment Radiology Rusty Vee M.D. [address] [place] [phone] 06/23/2022 Clinical Communication Admitting/Central Scheduling 06/28/2022 Appointment Pulmonary Medicine Rusty Vee M.D. [address] [place] [phone] 06/28/2022 Appointment Pulmonary Medicine Rusty Vee M.D. [address] [place] [phone] documented as of this encounter Visit Diagnoses Not on filedocumented in this encounter
--- OUTSIDE RECORDS SUMMARY | 2022-05-25 21:06 | XMS_ITS | Encounter Summary ---
:1975 Author Organization [facility] Address [address] [place] [address] Care Team Providers Name Role Phone Unavailable Primary Care Provider Unavailable Encounter Details Date Type Department Care Team Description 02/21/2016 - Hospital Encounter [facility]X [facility], 02/27/2016 INPT/OBSRV Martha Herrera M.D. [address] [id number] Social History Tobacco Use Types [...] at Date Recorded Female 05/03/2022 7:07 PM LOBBYIST documented as of this encounter Last Filed [...] 10:06 AM CDT Hospital Discharge Medication List [address] [place], [place] [id number] Discharge Medication List Name: DORITA SHEFFIELD Current Date: 02/27/2016 10:06:22 : 1975 12:00 AM [facility] Number: [id number] Patient Address: [address] [place] [phone] Patient Primary Care Provider: Name: TASHA HENRIQUEZ MD Discharge Diagnosis: 1:Cellulitis of unspecified part of limb; 2:Primary Hypercoagulable State; 3:Edema Leg Multifactorial [facility] in [place] would like to thank you for allowing [...] may stop after 1 month [facility] [address] [address] multivitamin (multivitamin) 1 tab, Oral, once a day piperacillin-tazobactam (Zosyn 3 g-0.375 g intravenous injection) 3.375 gm, Intravenous, every 6 hours sulfamethoxazole-trimethoprim (sulfamethoxazole-trimethoprim 800 mg-160 mg oral tablet) 1 Tablet(s),Oral, two times a day New Routed to [facility] [address] [address] traMADol (traMADol 50 mg oral tablet) 1 Tablet(s), Oral, every 4 hours as needed for Pain Routed to [facility] warfarin (Coumadin 2 mg oral tablet) 1 Tablet(s), Oral, once a day Routed to [facility] [address] [address] Stop Taking the Following Medications: [facility] Prescription (NEW MED) Medication list as of [...] FERNANDA PENNINGTON MD Signed On:27-FEB-2016 10:06:13 Source: [facility] POWERCHART Document Id: [id number] Fernanda Pennington M.D. - 02/27/2016 10:06 AM CDT Hospital Discharge Instructions [address] [phone] Patient Discharge Instructions Name: DORITA SHEFFIELD Current Date: 02/27/2016 10:06:23 : 1975 12:00 AM [facility] Number: [id number] Patient Address: [address] [place] [phone] Patient Primary Care Provider: Name: TASHA HENRIQUEZ MD Discharge Diagnosis: 1:Cellulitis of unspecified part of limb; 2:Primary Hypercoagulable State; 3:Edema Leg Multifactorial [facility] in [place] would like to thank you for allowing us to assist you withyour healthcare needs. The following includes patient education materials and information regarding your injury/illness. Comment: NETTIE DORITA FROST has been given the following list of follow-up instructions, medication list, and patient education materials: Follow-up Instructions With: Address: When: TASHA HENRIQUEZ [address] [place] [address] [phone] Business (1) 03/04/2016 1:30 PM Comments: You are scheduled for a follow up Hospital Visit with Dr. Henriquez on March 04 at 1:30PM. With: Address: When: [facility] [address] [place] [address] 03/01/2016 11:30 AM Comments: You are scheduled [...] may stop after 1 month Routed to [address] [address] multivitamin (multivitamin) 1 tab, Oral, once a day piperacillin-tazobactam (Zosyn 3 g-0.375 g intravenous injection) 3.375 gm, Intravenous, every 6 hours sulfamethoxazole-trimethoprim (sulfamethoxazole-trimethoprim 800 mg-160 mg oral tablet) 1 Tablet(s),Oral, two times a day New Routed to [address] [address] traMADol (traMADol 50 mg oral tablet) 1 Tablet(s), Oral, every 4 hours as needed for Pain Routed to [facility] war[facility] (Coumadin 2 mg oral tablet) 1 Tablet(s), Oral, once a day [facility]ed [facility] [address] Stop Taking the Following Medications: Misc Prescription (NEW MED) Medication list as of [...] Appointments Date Time Location Provider 03/01/2016 11:30 [facility] 03/04/2016 13:30 [facility] [place] TSANG, Tasha Helton Consider Using [...] dont have one. Go to [email or web address] and click on Create Your Account. Then, follow the directions to complete the online form. Youll be asked for your [facility] number which you can find at the top of this document. NETTIE Cha CAROLYN MARY , have received the attached patient education [...] between the bedroom and the bathroom. ?? [id number] [place] [address]. All rights reserved. This information is not [...] rectal, after two days on antibiotics ?? [id number] [facility], [address] [place] [address]. All rights reserved. This information is not intended as a substitute for professional medical care. Always follow your healthcare professional's instructions. This document has images extracted. Please consider using real trends for all your patient education needs. Source: [employer] Document Id: [id number] Jenny Abreu, RMichaelN. - 02/27/2016 10:00 AM CDT Discharge Summary Discharge Summary Entered On: 02/27/2016 14:40 CDT Performed On: 02/27/2016 10:00 CDT by JENNY ABREU RN MO Information Discharged to : Home with family [...] ABREU RN - 02/27/2016 14:37 CDT Source: [employer] Document Id: [id number] CDT!21 Fernanda Pennington M.D. - 02/27/2016 12:00 AM CDT [id number] ADMISSION DATE: 02/21/2016 DISCHARGE DATE: 02/27/2016 FINAL [...] time. Fernanda Pennington M.D./erin Electronically Signed By: FERNANDA PENNINGTON MD On: 02/27/2016 04:12 PM Modified by and Electronically Signed by: FERNANDA PENNINGTON MD On: 02/27/2016 04:12 PM Source: [facility] MHSDOLBEYNONRADSYS Document Id: [id number] documented in this encounter Medications at Time [...] Pennington M.D. - 02/26/2016 12:00 AM CDT [id number] SUBJECTIVE A 41-year-old [place] female was admitted to the hospital with [...] PENNINGTON MD On: 02/26/2016 02:17 PM Source: [facility] MHSDOLBEYNONRADSYS Document Id: [id number] Fernanda Pennington M.D. - 02/24/2016 12:00 AM CDT [id number] SUBJECTIVE A very nice young lady, 41 years old, was admitted to the hospital with right leg cellulitis. Patient did have a right lower extremity ultrasound, which was negative for DVT. She had been diagnosed with it in about mid January, was placed on doxycycline, but it did not work. Patient was admitted to thespital for further evaluation. She is on chronic [...] PENNINGTON MD On: 02/24/2016 01:08 PM Source: [facility] MHSDOLBEYNONRADSYS Document Id: [id number] Martha Cabral M.D. - 02/23/2016 11:05 AM CDT Hospital Progress Note (SOAP) MARISELA Swann is a 41-year-old patient who was admitted [...] ARTHUR MD On: 02/23/2016 11:11 AM Source: [facility] POWERCHART Document Id: [id number] Whit Swift, P.T. - 02/22/2016 3:10 PM CDT Physical Therapy Initial Evaluation Physical Therapy Initial Evaluation Entered On: 02/22/2016 15:29 CDT Performed On: 02/22/2016 15:10 CDT by WHIT SWIFT General Info Reason for Referral to Physical Therapy : Decreased mobility Physical Therapy Orders : Physical Therapy Evaluate & Treat - 02/21/16 13:31:00 CDT, cellulitis,mobility Pain Symptoms : Yes WHIT SWIFT [facility] - 02/22/2016 15:10 CDT Pain Scale Pain Scale Verbal 0-10 : Open HWIT SWIFT [facility] - 02/22/2016 15:10 CDT Pain Pain Assessment Grid Pain 1 Location : Foot (Comment: Right foot due to cellulitis [WHIT SWIFT [facility] - 02/22/2016 15:10 CDT]) WHIT SWIFT [facility] - 02/22/2016 15:10 CDT Home Environment Living Environment : No Living Environment Information Available Lives In : Apartment Lives With : Alone WHIT SWIFT [facility] - 02/22/2016 15:10 CDT Prior Functional Level Grid Bed Mobility : Independent Transfers : Independent Ambulation at Home : Independent Community Ambulation : Independent Toilet Transfers : Independent Upper Extremity Bathing : Independent Lower Extremity Bathing : Independent Upper Extremity Dressing : Independent Lower Extremity Dressing : Independent Grooming : Independent WHIT SWIFT [facility] - 02/22/2016 15:10 CDT Home Living Additional Information : Pt is a pleasant 41 yr old female that was admitted due to cellulitis of the right foot. Prior to hospitalization pt lived alone at [facility]. Pt planson returning there when she is D/C'd from the hospital. PMH: Atrioventricular canal, cellulitis, protein deficiency, tricuspid valve disorder, hyperlipidemea, menstral irregularities, mitral valve regurgitation, hypercoagulabel state, psoriasis, stenosis mitral congenital, thrombophlebitis deep vein LE, thrombosis deep vein acute LE, trisomy 21 WHIT SWIFT [facility] - 02/22/2016 15:10 CDT Musculoskeletal PT Range of Motion Grid Left Lower Extremity : Active Within Normal Limits Right Lower Extremity : Active Within Normal Limits WHIT SWIFT [facility] - 02/22/2016 15:10 CDT Left Lower Extremity Strength : Normal 5 Right Lower Extremity Strength : Limited WHIT SWIFT [facility] - 02/22/2016 15:10 CDT Right LE Strength Right Lower Extremity Strength Grid Hip Flexion : Normal 5 Knee Flexion : Normal 5 Knee Extension : Normal 5 Ankle Dorsiflexion : not tested due to cellulitis Ankle Plantarflexion : not tested due to cellulitis WHIT SWIFT [facility] - 02/22/2016 15:10 CDT Balance/Mobility Mobility Grid Roll Left : Independent Roll Right : Independent Supine to Sit : Independent Sit to Supine : Independent Scooting : Independent Sit to Stand : Independent Stand to Sit : Independent WHIT SWIFT [facility] - 02/22/2016 15:10 CDT Ambulation Level : Contact guard assistance Ambulation Distance : 30 m Ambulation Repetitions : 1 Ambulation Device Utilized : Front wheeled walker Ambulation Quality : Pt ambulated in a slow methotical way until the last 25 ft. Then she quickly picked up the pace was able to move quite fast. WHIT SWIFT [facility] - 02/22/2016 15:10 CDT Assessment Rehabilitation Potential : Good PT Clinical Assessment : Pt will be D/C'd from PT due to not having a skilled need at this time. Pt will be placed on a regular walking schedule with nursing to prevent decline in mobility status. WHIT SWIFT [facility] - 02/22/2016 15:10 CDT Goals PT Patient/Caregiver Goal : Pt stated she enjoys her time here and is in no hurry to go home. JENIFFERWHIT CHEN Iris [facility] - 02/22/2016 15:10 CDT Plan PT Frequency : Discontinue PT Plan/Goals Established w Pt/Caregiver : Yes WHIT SWIFT [facility] - 02/22/2016 15:10 CDT DC Recommendations Discharge To, Anticipated : Home independently Home Equipment, Anticipated : Walker Walker Specifics : Front wheeled walker WHIT SWIFT [facility] - 02/22/2016 15:10 CDT Education PT Education Grid Topics : Physical Therapy plan of care Individuals Taught : Patient, Parent Barriers to Learning : Cognitive deficit, Desire/Motivation Teaching Method : Explanation JENIFFERWHIT CHEN Iris [facility] - 02/22/2016 15:10 CDT PT Charge Registration Status - PT : Inpatient: Hospital/TCU PT Evaluation Time : 30 minute(s) Physical Therapy Evaluation Charges : Yes JENIFFERWHIT CHEN Iris [facility] - 02/22/2016 15:10 CDT Source: [employer] Document Id: [id number] CDT!77 Martha Cabral M.D. - 02/22/2016 11:28 [...] changes right knee joint. Carissa Marti MD. [id number] 22-Feb-2016 15:18 [2] Report 22-Feb-2016 14:47:00 Exam: [...] ARTHUR MD On: 02/22/2016 04:52 PM Source: [facility] POWERCHART Document Id: [id number] Martha Cabral M.D. - 02/21/2016 11:07 AM CDT Hospital Progress Note (SOAP) MARISELA Swann is a 41-year-old patient who was admitted [...] ARTHUR MD On: 02/21/2016 11:11 AM [facility] [employer] Document Id: [id number] documented in this encounter Procedure Notes Jenny [...] ABREU RN - 02/27/2016 14:40 CDT Source: [facility] MiRTLE MedicalCHART Document Id: [id number] CDT!26 Eliseo Quezada, Pharm.D., R.Ph. - 02/26/2016 10:18 AM CDT Pharmacokinetic [...] : 12.2 Current Dose : 1250 mg q18ouwly Other Antibiotics : Zosyn 3.375 gm q6hr. Zosyn 3.375 gm q6hr Zosyn 3.375 gm q6hr Assessment/Plan : GIve 1250 mg Vanco IV q 24 hours and check trough prior to the 4th dose on 02-25-16 Continue current regimen IV Antibiotics discontinued today and Oral Bactrim DS BID initiated [facility] Initials : PF GJ PF ELISEO QUEZADA - 02/26/2016 10:18 CDT ELISEO QUEZADA - 02/26/2016 10:18 CDT ELISEO QUEZADA - 02/26/2016 10:18 CDT Source: [facility] Mi[employer] MedicalCHART Document Id: [id number] CDT!39 Eliseo Quezada Pharm.DMichael, R.Ph. - 02/26/2016 [...] : 12.2 Current Dose : 1250 mg [id number] Other Antibiotics : Zosyn 3.375 gm q6hr. Zosyn 3.375 gm q6hr Zosyn 3.375 gm q6hr Assessment/Plan : GIve 1250 mg Vanco IV q 24 hours and check trough prior to the 4th dose on 02-25-16 Continue current regimen IV Antibiotics discontinued today and Oral Bactrim DS BID initiated [facility] Initials : PF GJ PF ELISEO QUEZADA - 02/26/2016 9:50 CDT ELISEO QUZEADA - 02/26/2016 9:50 CDT ELISEO QUEZADA - 02/26/2016 9:50 CDT Source: [employer] Document Id: [id number] CDT!39 Sabrina Medina R.N. - 02/25/2016 5:33 PM CDT Peripheral IV [...] MEDINA RN - 02/25/2016 17:33 CDT Source: [employer] Document Id: [id number] CDT!31 Sabrina Medina R.N. - 02/25/2016 5:11 [...] MEDINA RN - 02/25/2016 17:11 CDT Source: [employer] Document Id: [id number] CDT!29 Sasha Brizuela Pharm.DMichael, R.Ph. - 02/25/2016 1:10 PM CDT Pharmacokinetic Monitoring Pharmacokinetic Monitoring Entered On: 02/25/2016 13:12 CDT Performed On: 02/25/2016 13:10 CDT by SASHA BRIZUELA Pharm.D., R.Ph. Kinetics Note Pharmacokinetic Demographics - Grid Date : 02/22/2016 CDT Age (years) : 41 year(s) Admission Weight (kg) : 82.5 kg Ordering Provider : MARTHA ARTHUR MD, GERALD G Pharm.DMichael, R.Ph. - 02/25/2016 13:10 CDT Pharmacokinetic Drug [...] 4th dose on 02-25-16 Continue current regimen [facility] Initials : PF GJ SASHA BRIZUELA Pharm.D., R.Ph. - 02/25/2016 13:10 CDT SASHA BRIZUELA Pharm.D., R.Ph. - 02/25/2016 13:10 CDT Source: [employer] Document Id: [id number] CDT!32 Eliseo Quezada Pharm.D., R.Ph. - 02/23/2016 8:00 AM CDT Pharmacokinetic [...] prior to the 4th dose on 02-25-[address] [facility] Initials : ELISEO CASTRO - 02/23/2016 8:00 CDT Source: [employer] Document Id: [id number] CDT!26 Sabrina Barrios RiMchaelN. - 02/22/2016 8:05 AM CDT Pulse Oximetry Pulse Oximetry Entered On: 02/22/2016 8:05 CDT Performed On: 02/22/2016 8:05 CDT by SABRINA BARRIOS RN Pulse Oximetry SpO2 : 93 % (LOW) Saturation Probe Site : Hand, right Oxygen Therapy : Room air SABRINA BARRIOS RN - 02/22/2016 8:05 CDT Source: [employer] Document Id: [id number] CDT!5 Arash Fajardo M.S., M.S.N., R.N. - [...] FAJARDO RN - 02/21/2016 16:28 CDT Source: [employer] Document Id: [id number] CDT!24 documented in this encounter Nursing Notes Jenny Abreu RViktor - 02/27/2016 10:45 AM CDT Discharge note Pt discharge summary discussed with patient and patients mother. All questions answered. Scripts sent with patients mother. IV discontinued catheter intact. VSS. Pt left with mother via wheel chair [id number] via personal vehicle. Electronically Signed By: JENNY ABREU RN On: 02/27/2016 02:46 PM Source: [employer] Document Id: [id number] Sabrina Barrios R.N. - 02/27/2016 4:24 AM [...] BARRIOS RN On: 02/27/2016 04:34 AM Source: [facility] POWERCHART Document Id: [id number] Jenny Abreu R.N. - 02/26/2016 3:33 PM [...] ABREU RN On: 02/26/2016 06:56 PM [facility]: [facility] Document Id: [id number] Jenny Abreu RMichaelNMichael - 02/26/2016 9:39 AM CDT PRN Response PRN Response Entered On: 02/26/2016 11:52 CDT Performed On: 02/26/2016 9:39 CDT by JENNY ABREU RN Intervention Information: tramadol Performed by JENNY ABREU RN on 02/26/2016 08:39:00 CDT traMADol,50mg PO,Pain PRN Medication Effectiveness Evaluation PRN Medication Effective : Yes Post Medication Pain Assessment : 6 JENNY ABREU RN - 02/26/2016 11:52 CDT Source: [employer] Document Id: [id number] CDT!4 Sayda Andrews R.N. - 02/26/2016 3:18 AM CDT shift note ADLs-How much help does the patient need to_ Wash_minimum assist with cueing Dress_independent for upper body, minimum assist for lower body r/t cellulitis pain in RLE Mouth care/dentures_independent Shower/bath_minimum assist with TIRE BUILDING SUPERVISOR Transfer assistance_stand by assist with gait belt, [...] did they spend on it_patient watched television (greys anatomy) and had family visiting. Positioning/chair time/offloading/pressure relief_patient [...] ANDREWS RN On: 02/26/2016 03:20 AM Source: [employer] Document Id: [id number] Sayda Andrews R.N. - 02/26/2016 3:16 AM CDT PRN Response PRN Response Entered On: 02/26/2016 3:16 CDT Performed On: 02/26/2016 3:16 CDT by SAYDA ANDREWS RN Intervention Information: tramadol Performed by SAYDA ANDREWS RN on 02/26/2016 00:46:00 CDT traMADol,50mg PO,Pain PRN Medication Effectiveness Evaluation PRN Medication Effective : Other: Pt sleeping SAYDA ANDREWS RN - 02/26/2016 3:16 CDT Source: [employer] Document Id: [id number] CDT!3 Sayda Andrews R.N. - 02/25/2016 9:37 [...] ANDREWS RN - 02/25/2016 21:37 CDT Source: [employer] Document Id: [id number] CDT!11 Sabrina Medina R.N. - 02/25/2016 5:49 PM CDT Swing Bed Progress Note ADLs-How much help does the patient need to_ Wash_minimum assist with cueing Dress_independent for upper body, minimum assist for lower body r/t cellulitis pain in RLE Mouth care/dentures_independent Shower/bath_minimum assist with TIRE BUILDING SUPERVISOR Transfer assistance_stand by assist with gait belt, [...] MEDINA RN On: 02/25/2016 05:56 PM Source: [employer] Document Id: [id number] Sabrina Medina R.N. - 02/25/2016 2:49 PM CDT PRN Response PRN Response Entered On: 02/25/2016 14:49 CDT Performed On: 02/25/2016 14:49 CDT by SABRINA MEDINA RN Intervention Information: tramadol Performed by STACIA STONE RN on 02/25/2016 14:25:00 CDT traMADol,50mg PO,Pain PRN Medication Effectiveness Evaluation PRN Medication Effective : Yes Post Medication Pain Assessment : 3 SABRINA MEDINA RN - 02/25/2016 14:49 CDT Source: [employer] Document Id: [id number] CDT!4 Sayda Andrews R.N. - 02/25/2016 12:21 [...] ANDREWS RN On: 02/25/2016 12:26 AM Source: [facility] POWERCHART Document Id: [id number] Audrey Hendrix L.S.W. - 02/25/2016 12:00 AM CDT [id number] Today, February 25, 2016 this Dishcloth Folder was informed by therapy that the patient would benefit from a front wheeled walker upon discharging from here. This Dishcloth Folder visited with the patient and her mother who is one of her conservators. The patient's mother is still in agreement with not needing to have a care conference while the patient is in the transitional care/swing bed program. Also she explained that they already have a front wheeled walker at home. The patient's mother has been updating the patient's home care agency and county Dishcloth Folder on discharge planning and neither the patient or her mother had any questions or concerns at this time. Therapy was updated on the fact thatthe patient already has a front wheeled walker at home. Sadiq Falcon/erin Electronically Signed By: AUDREY HENDRIX On: 02/26/2016 10:44 AM Modified by and Electronically Signed by: AUDREY HENDRIX On: 02/26/2016 10:44 AM Source: [facility] MHSDOLBEYNONRADSYS Document Id: [id number] Sayda Andrews R.N. - 02/24/2016 11:33 PM CDT PRN Response PRN Response Entered On: 02/24/2016 23:33 CDT Performed On: 02/24/2016 23:33 CDT by SAYDA ANDREWS RN Intervention Information: acetaminophen Performed by SAYDA ANDREWS RN on 02/24/2016 22:14:00 CDT acetaminophen,1000mg PO,Pain(c) PRN Medication Effectiveness Evaluation PRN Medication Effective : Yes Post Medication Pain Assessment : 5 SAYDA ANDREWS RN - 02/24/2016 23:33 CDT Source: [employer] Document Id: [id number] CDT!4 Sabrina Medina R.N. - 02/24/2016 2:23 [...] MEDINA RN On: 02/24/2016 02:34 PM Source: [facility] POWERCHART Document Id: [id number] Sabrina Medina RMichaelN. - 02/24/2016 10:38 AM CDT PRN Response PRN Response Entered On: 02/24/2016 10:38 CDT Performed On: 02/24/2016 10:38 CDT by SABRINA MEDINA RN Intervention Information: tramadol Performed by SABRINA MEDINA RN on 02/24/2016 10:00:00 CDT traMADol,50mg PO,Pain PRN Medication Effectiveness Evaluation PRN Medication Effective : Yes Post Medication Pain Assessment : 3 SABRINA MEDINA RN - 02/24/2016 10:38 CDT Source: [employer] Document Id: [id number] CDT!4 Audrey Hendrix L.S.W. - 02/24/2016 10:18 AM CDT Biology Instructor/Discharge Planning Biology Instructor/Discharge Planning Entered On: 02/24/2016 10:19 CDT Performed On: 02/24/2016 10:18 CDT by AUDREY HENDRIX Assessment Biology Instructor Needs : Biology Instructor Assessment Follow in Interdisciplinary Team : Yes Referral : Physician Information Obtained From : Parent Languages : Swedish Auto Carrier Driver Needed : No Mental Status : Alert Health Care/Fin Decision appointee : Yes AUDREY HENDRIX - 02/24/2016 10:18 CDT Advance Directive Advanced Directives : Yes Advance Directive Type : Health care power of employee benefits attorney, Other: Conservatorship Advance Directive Location : Copy placed on paper chart AUDREY HENDRIX - 02/24/2016 10:18 CDT Psychosocial Domestic Abuse Concerns : None Behavioral Health Screen/Safety Assmt : No Baptism Preference : Unknown AUDREY HENDRIX - 02/24/2016 10:18 CDT Dependent Habits Exposure to Tobacco Smoke : Other: never smoker Smoking Status : Never smoker Tobacco 2A : No Tobacco Use/Currently Using : No Tobacco Use/Last 30 Days : No Tobacco Use/Last 12 months : No AUDREY HENDRIX - 02/24/2016 10:18 CDT Caffeine Use Grid Caffeine Use : Current Type : Soft drinks Frequency : Occasionally Amount : pop AUDREY HENDRIX - 02/24/2016 10:18 CDT Recreational Drug Use Grid Drug Use : None AUDREY HENDRIX - 02/24/2016 10:18 CDT Source: [employer] Document Id: [id number] CDT!34 Deborah Dacosta - 02/24/2016 6:10 AM CDT PRN Response PRN Response Entered On: 02/24/2016 6:35 CDT Performed On: 02/24/2016 6:10 CDT by DEBORAH DACOSTA RN Intervention Information: tramadol Performed by DEBORAH DACOSTA RN on 02/24/2016 05:10:00 CDT traMADol,50mg PO,Pain PRN Medication Effectiveness Evaluation PRN Medication Effective : Other: pt appears to be sleeping DEBORAH DACOSTA RN - 02/24/2016 6:34 CDT Source: [employer] Document Id: [id number] CDT!3 Deborah Dacosta - 02/24/2016 3:47 AM CDT swing bed note ADLs-How much help does the patient need to_ Wash_mod assist of 1 for leeanna care. Dress_ Mouth care/dentures_independent Shower/bath_moderate assist x1 Transfer assistance_assist x1 using gait belt & walker Ambulate and distance_patient [id number] this shift for total of 68m Bowel [...] DACOSTA RN On: 02/24/2016 03:50 AM Source: [employer] Document Id: [id number] Deborah Dacosta - 02/23/2016 10:43 PM CDT PRN Response PRN Response Entered On: 02/23/2016 22:37 CDT Performed On: 02/23/2016 22:43 CDT by DEBORAH DACOSTA RN Intervention Information: tramadol Performed by DEBORAH DACOSTA RN on 02/23/2016 21:43:00 CDT traMADol,50mg PO,Pain PRN Medication Effectiveness Evaluation PRN Medication Effective : Yes DEBORAH DACOSTA RN - 02/23/2016 22:37 CDT Source: [employer] Document Id: [id number] CDT!3 Sabrina Barrios R.N. - 02/23/2016 6:17 [...] BARRIOS RN On: 02/23/2016 06:33 PM Source: View[employer] Document Id: [id number] Sabrina Barrios R.N. - 02/23/2016 2:25 PM CDT PRN Response PRN Response Entered On: 02/23/2016 15:20 CDT Performed On: 02/23/2016 14:25 CDT by SBARINA BARRIOS RN Intervention Information: tramadol Performed by SABRINA BARRIOS RN on 02/23/2016 13:29:00 CDT traMADol,50mg PO,Pain PRN Medication Effectiveness Evaluation PRN Medication Effective : Yes Post Medication Pain Assessment : 3 SABRINA BARRIOS RN - 02/23/2016 15:20 CDT Source: [employer] Document Id: [id number] CDT!4 Sabrina Barrios R.N. - 02/23/2016 9:26 [...] BARRIOS RN - 02/23/2016 9:26 CDT Source: [employer] Document Id: [id number] CDT!4 Stacia Stone R.N. - 02/23/2016 2:14 [...] STONE RN - 02/23/2016 2:14 CDT Source: [facility] POWERCHART Document Id: [id number] CDT!4 Stacia Stone R.N. - 02/23/2016 1:28 [...] STONE RN On: 02/23/2016 01:43 AM Source: [facility] POWERCHART Document Id: [id number] Sabrina Barrios R.N. - 02/22/2016 7:21 PM CDT swingbed note [...] BARRIOS RN On: 02/22/2016 07:27 PM Source: [facility] POWERCHART Document Id: [id number] Sita Harris R.N. - 02/22/2016 7:16 PM CDT PRN Response PRN Response Entered On: 02/22/2016 19:16 CDT Performed On: 02/22/2016 19:16 CDT by SITA HARRIS RN Intervention Information: tramadol Performed by SABRINA BARRIOS RN on 02/22/2016 18:45:00 CDT traMADol,50mg PO,Pain PRN Medication Effectiveness Evaluation PRN Medication Effective : Yes Post Medication Pain Assessment : 3 SITA HARRIS RN - 02/22/2016 19:16 CDT Source: [employer] Document Id: [id number] CDT!4 Sabrina Barrios R.N. - 02/22/2016 3:40 [...] BARRIOS RN - 02/22/2016 16:01 CDT Source: [employer] Document Id: [id number] CDT!4 Sabrina Barrios R.N. - 02/22/2016 2:37 [...] BARRIOS RN - 02/22/2016 14:37 CDT Source: [employer] Document Id: [id number] CDT!4 Sabrina Barrios R.N. - 02/22/2016 11:01 [...] BARRIOS RN - 02/22/2016 11:01 CDT Source: [employer] Document Id: [id number] CDT!4 Meli Garza R.N. - 02/22/2016 9:50 AM CDT Focused Assessment - Gastrointestinal Focused Assessment - Gastrointestinal Entered On: 02/22/2016 9:50 CDT Performed On: 02/22/2016 9:50 CDT by MELI GARZA RN Gastrointestinal Stool Color : Brown Stool Description : Loose Stool Amount : Large MELI GARZA RN - 02/22/2016 9:50 CDT [facility] Document Id: [id number] CDT!5 Ana Jonas - 02/22/2016 3:55 AM [...] JONAS RN On: 02/22/2016 04:32 AM Source: [facility] POWERCHART Document Id: [id number] Audrey Hendrix L.S.W. - 02/22/2016 12:00 AM CDT [id number] Today, February 22, 2016 this [facility] F[facility] visited with the patient's mother. She explained that she has been updating the patient's county [facility] and her home care regarding the patient's [...] AUDREY HENDRIX On: 02/23/2016 04:05 PM Source: [facility] MHSDOLBEYNONRADSYS Document Id: [id number] Ana Jonas - 02/21/2016 11:08 PM CDT PRN Response PRN Response Entered On: 02/21/2016 23:53 CDT Performed On: 02/21/2016 23:08 CDT by ANA JONAS RN Intervention Information: tramadol Performed by ANA JONAS RN on 02/21/2016 22:08:00 CDT traMADol,50mg PO,Pain PRN Medication Effectiveness Evaluation PRN Medication Effective : Yes Post Medication Pain Assessment : N/A ANA JONAS RN - 02/21/2016 23:53 CDT Source: [facility] POWERCHART Document Id: [id number] CDT!4 Arash Fajardo M.S., M.S.N., R.N. - [...] FAJARDO RN On: 02/21/2016 07:38 PM Source: [employer] Document Id: [id number] Arash Fajardo M.S., M.S.N., R.N. - 02/21/2016 5:27 PM CDT PRN Response PRN Response Entered On: 02/21/2016 17:27 CDT Performed On: 02/21/2016 17:27 CDT by ARASH FAJARDO RN Intervention Information: tramadol Performed by ARASH FAJARDO RN on 02/21/2016 15:29:00 CDT traMADol,50mg PO,Pain PRN Medication Effectiveness Evaluation PRN Medication Effective : Yes ARASH FAJARDO RN - 02/21/2016 17:27 CDT Source: [employer] Document Id: [id number] CDT!3 Arash Fajardo M.S., M.S.N., R.N. - [...] FAJARDO RN - 02/21/2016 12:26 CDT Source: [employer] Document Id: [id number] CDT!4 Arash Fajardo M.S., M.S.N., R.N. - [...] FAJARDO RN - 02/21/2016 9:10 CDT Source: [facility] [employer] Document Id: [id number] CDT!6 Meli Garza R.N. - 02/21/2016 8:06 AM CDT transition to swing bed Dorita deepa'd from acute care encounter and admitted to TCU for continued antibiotics for cellulitis. Electronically Signed By: MELI GARZA RN On: 02/21/2016 01:06 PM Source: [employer] Document Id: [id number] documented in this encounter Miscellaneous Notes Miscellaneous - Conversion, Historical Provider Ser - 02/27/2016 10:45 AM CDT Coding Summary-Paper Based CODING DATE: 03/04/2016 FINAL [facility] STATUS: * Discharged to Home or Self Care PAYOR: Medicare Advantage Grouper: 603 MS-DRG Cellulitis w/o [facility] [place] [place] ADMIT DX: L03.115 Cellulitis of right lower limb REASON FOR VISIT DX: FINAL DX: PRINCIPAL: L03.115 Y Cellulitis of right lower limb SECONDARY: N28.9 Y Disorder of kidney and ureter, unspecified Z79.01 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 - 02/27/2016 9:53 AM CDT [...] 9:53 BELLA MAO PHARMD - 02/27/2016 9:53 BELLA MAO PHARMD - 02/27/2016 9:53 CDT Date : [...] a long time, no bleeding now left [facility] [place] Fabiola,call if changes Recommend Recheck : Other: 5 weeks Other: 5 weeks Other: 03/10/2014 Other: 03/20/14 Plan completed by : BELLA Morales PHARMD - 02/27/2016 9:53 BELLA MAO PHARMD - 02/27/2016 9:53 BELLA MAO PHARMD - 02/27/2016 9:53 BELLA MAO PHARMD - 02/27/2016 9:53 CDT Date : [...] completed by : darya lackey LM /pharmacy BELLA DRUMMOND PHARMD - 02/27/2016 9:53 CDT BELLA DRUMMOND PHARMD - 02/27/2016 9:53 CDT BELLA DRUMMOND PHARMD - 02/27/2016 9:53 CDT BELLA DRUMMOND PHARMD - 02/27/2016 9:53 CDT Date : 04/17/2014 CDT 04/24/2014 CDT 05/01/2014 LOBBYIST 05/15/2014 LOBBYIST Location of INR sample : Lab Lab [...] will trynoted dose called to mom Fabiola [phone] called to Fabiola/no changes Called to mother/Fabiola, not awareof any changes Recommend Recheck : One week One week Two weeks Two weeks Plan completed by : BELLA CASEY PHARMD - 02/27/2016 9:53 CDT BELLA DRUMMOND PHARMD - 02/27/2016 9:53 CDT BELLA DRUMMOND PHARMD - 02/27/2016 9:53 CDT BELLA DRUMMOND PHARMD - 02/27/2016 9:53 CDT Date : 06/03/2014 LOBBYIST 06/05/2014 LOBBYIST 06/10/2014 LOBBYIST 06/11/2014 LOBBYIST Location of INR sample : Lab Type [...] Called motherFabiola. Dorita will be staying in [place] 2wks post-surgery & have INR drawn there. [...] lovenox tomorrow AM as ordered. INR in [place] for next several weeks as pt will be recovering there. Recommend Recheck : Other: depending on Dr. Henriquez's preop. Other: 06/18 Other: 06/13/14 Plan completed by : BELLA ABREU PHARMD - 02/27/2016 9:53 CDT BELLA DRUMMOND PHARMD - 02/27/2016 9:53 CDT BELLA DRUMMOND PHARMD - 02/27/2016 9:53 CDT BELLA DRUMMOND PHARMD - 02/27/2016 9:53 CDT Date : 06/14/2014 LOBBYIST 06/14/2014 LOBBYIST 06/16/2014 LOBBYIST 06/23/2014 LOBBYIST Location of INR sample : Clinic Lab [...] for result and may call Fabiola at [phone] with instructions call to Fabiola/will stop Lovenox injections and take noted dose/pt has an appt here in [place] 06/23 so will do lab appt here that day Called to Fabiola/ Dorita will be back at [facility] by next draw. will have done on . no changes to meds/diet. Recommend Recheck : Two days One week Two weeks Plan completed by : BELLA Sam LM PHARMD - 02/27/2016 9:53 CDT BELLA DRUMMOND PHARMD - 02/27/2016 9:53 CDT BELLA DRUMMOND PHARMD - 02/27/2016 9:53 CDT BELLA DRUMMOND PHARMD - 02/27/2016 9:53 CDT Date : 07/10/2014 LOBBYIST 07/17/2014 LOBBYIST 07/31/2014 LOBBYIST 09/11/2014 CDT Location of INR sample : [...] Plan completed by : darya BoyceK ly BELLA CAROLINA PHARMD - 02/27/2016 9:53 CDT BELLA DRUMMOND [...] 9:53 CDT Date : 04/09/2015 CDT 05/07/2015 LOBBYIST 06/04/2015 LOBBYIST 07/02/2015 LOBBYIST Location of INR sample : Lab Lab [...] - 02/27/2016 9:53 CDT Date : 08/06/2015 LOBBYIST 09/17/2015 CDT 10/29/2015 CDT 11/12/2015 CDT Location [...] Plan completed by : darya LERMA ly BELLA HANSEN PHARMD - 02/27/2016 9:53 CDT BELLA DRUMMOND [facility] - 02/27/2016 9:53 CDT BELLA DRUMMOND PHARMValentina - 02/27/2016 9:53 CDT BELLA DRUMMOND PHARMValentina - 02/27/2016 9:53 CDT Date : 02/19/2016 [...] completed by : Tyshawn Brizuela, Pharm.DMichael Brizuela Pharm.D. BAUDILIO, PharmD Eliseo Quezada PharmD. BELLA DRUMMOND PHARMD - 02/27/2016 9:53 [...] by : Eliseo Quezada, PharmD. Eliseo Quezada PharmValentina. Tyshawn Brizuela, Pharm.D. Rea LeonD. BELLA DRUMMOND PHARMD - 02/27/2016 9:53 CDT [...] : Pt being discharged on Bactrim. Will pickler helper rx for 2 mg tabs Recommend Recheck [...] DRUMMOND PHARMD - 02/27/2016 9:53 CDT [facility] Document Id: [id number] CDT!623 Miscellaneous - Molly Waters - 02/27/2016 8:51 AM CDT Hospital Patient Education The following Patient Education Materials have been given to the patient: Patient Education Materials: Ambulatory CELLULITIS [facility] Preventing Falls in the Home Ambulatory Cellulitis [...] rectal, after two days on antibiotics ?? [id number] [place] [address]. All rights reserved. This information is not [...] between the bedroom and the bathroom. ?? [phone] [facility], [address] [place] [address]. All rights reserved. This information is not intended as a substitute for professional medical care. Always follow your healthcare professional's instructions. This document has images extracted. Please consider using real trends for all your patient education needs. Source: [email or web address] Document Id: [id number] Miscellaneous - Whit Thornton C.NEstrella - 02/27/2016 8:00 AM CDT Adult Activities of Daily Living Adult Activities of Daily Living Entered On: 02/27/2016 12:48 CDT Performed On: 02/27/2016 8:00 CDT by WHIT THORNTON C.N.A. ADLs I Ambulation Distance : 68 m(Converted to: 223 ft 1 inch(es), 6,800 cm) WHIT THORNTON C.N.A. - 02/27/2016 12:48 CDT ADLs II Bowel Movement Last Date : 02/25/2016 CDT WHIT THORNTON C.N.A. - 02/27/2016 12:48 CDT Source: [email or web address] Document Id: [id number] CDT!5 Miscellaneous - Jenny Abreu R.N. - 02/27/2016 8:00 AM CDT Adult Ongoing [...] Yes/No : Yes Nail Bed Color : Almira Capillary Refill : Less than 2 seconds [...] JENNY ABREU RN - 02/27/2016 14:19 CDT Edema Details Edema Detailed Grid Ankle Edema Pedal Edema Right : 1+ trace/2mm 1+ trace/2mm JENNY ABREU RN - 02/27/2016 14:19 CDT JENNY ABREU RN - 02/27/2016 14:19 CDT Antiembolism Device Antiembolism Device : Sequential Compression Device Antiembolism Device Laterality : Left Antiembolism Device Removal Reason : Activity, ADL care JENNY ABREU RN - 02/27/2016 14:19 CDT Neurological Neuro Patient Stated Symptoms : None Orientation : Oriented x 3 Level of Consciousness : Alert Gait : Steady Swallowing Difficulty/Aspiration Risk : None Last Well Time Known : No JENNY ABREU RN - 02/27/2016 14:19 CDT Kathleen Coma Eye Opening Response Kathleen : Spontaneously Best Verbal Response Kathleen : Oriented Best Motor Response Kathleen : Obeys simple commands Kahtleen Coma Score : 15 JENNY ABREU - 02/27/2016 14:19 CDT Oral Assessment Lips : Smooth, pink, moist, intact Gingiva : Almira, smooth, moist, intact Tongue : Smooth, pink, moist, intact Teeth : Clean, no debris Saliva : Thin, watery, plentiful JENNY ABREU - 02/27/2016 14:19 CDT Psycho/Emotional Affect/Behavior : Calm, Cooperative, Appropriate Pain Symptoms : No Feels Rested : Yes JENNY ABREU - 02/27/2016 14:19 CDT Gastrointestinal GI Patient Stated Symptoms : None Abdomen Description : Rounded Abdomen Palpation : Non-Tender, Soft Bowel Movement Last Date : 02/25/2016 CDT Bowel Sounds All Quadrants : Present JENNY ABREU - 02/27/2016 14:19 CDT Nutrition Appetite : Good Eating Difficulties : None Feeding Ability : Complete independence JENNY ABREU - 02/27/2016 14:19 CDT Genitourinary Patient Stated Symptoms : None Urinary Elimination : Voiding, no difficulties Urine Color : Yellow Urine Description : Clear JENNY ABREU - 02/27/2016 14:19 CDT Integumentary Integumentary Patient Stated Symptoms : None Skin Turgor : Elastic Skin Integrity : Intact Mucous Membrane Color : Almira Mucous Membrane Description : Moist JENNY ABREU - 02/27/2016 14:19 CDT Skin Abnormality/Location Grid [...] Dressing : Open to air JENNY ABREU ANGELINE - 02/27/2016 14:19 CDT Mando Sensory Perception Mando : Slightly limited Moisture Mando : Occasionally moist Activity Mando : Walks occasionally JENNY ABREU ANGELINE - 02/27/2016 14:19 CDT Mobility Mando : No limitations JENNY ABREU ANGELINE - 02/27/2016 14:58 CDT Nutrition Mando : Adequate Friction and Shear Mando : No apparent problem JENNY ABREU Stoney MARCUS - 02/27/2016 14:19 CDT Mando Score : 19 JENNY ABREU ANGELINE - 02/27/2016 14:58 CDT Musculoskeletal Musculoskeletal Patient Stated Symptoms : None Activity Tolerance : Without distress JENNY ABREU Stoney MARCUS - 02/27/2016 14:19 CDT Musculoskeletal Note : Pt ambulates assist of one gait belt and walker. JENNY ABREU Stoney RN - 02/27/2016 14:28 CDT Peripheral IV [...] Flow/ Patency : No complications JENNY ABREU Stoney RN - 02/27/2016 14:28 CDT JENNY ABREU Stoney MARCUS - 02/27/2016 14:28 CDT URI JENNY Stoney MARCUS - 02/27/2016 14:28 CDT Hendrich II Fall [...] ABREU RN - 02/27/2016 14:28 CDT Source: [employer] Document Id: [id number] CDT!4 Kolby - Rustam Chapin V, C.N.A. - 02/26/2016 9:31 PM CDT Adult [...] CHAPIN CNA - 02/26/2016 21:31 CDT Source: [employer] Document Id: [id number] CDT!10 Enriquetacellaneous - Sabrina Barrios RMichaelN. - 02/26/2016 9:29 PM CDT Adult Ongoing [...] Yes/No : Yes Nail Bed Color : Almira Capillary Refill : Less than 2 seconds Edema Assessment : Yes SABRINA BARRIOS RN - 02/26/2016 21:29 CDT Dorsalis Pedis Pulse, Left : 2+ Normal Dorsalis Pedis Pulse, Right : 2+ Normal SABRINA BARRIOS RN - 02/26/2016 21:29 CDT Skin Color : Normal for ethnicity Skin Description : Normal Skin Temperature : Warm Activity Tolerance : Without distress SABRINA BARRIOS RN - 02/26/2016 21:29 CDT Edema Details Edema Detailed Grid Ankle Edema Pedal Edema Pretibial Edema Right : 1+ trace/2mm 1+ trace/2mm SABRINA BARRIOS RN - 02/26/2016 21:29 CDT SABRINA BARRIOS RN - 02/26/2016 21:29 CDT SABRINA BARRIOS RN - 02/27/2016 0:42 CDT Antiembolism Device Antiembolism [...] SABRINA BARRIOS RN - 02/26/2016 21:29 CDT Roundhill Coma Eye Opening Response Roundhill : Spontaneously Best Verbal Response Roundhill : Oriented Best Motor Response Kathleen : Obeys simple commands [place] Coma Score : 15 SABRINA BARRIOS RN - 02/26/2016 21:29 CDT Psycho/Emotional Feels Rested : Yes SABRINA BARRIOS RN - 02/27/2016 1:48 CDT Affect/Behavior : Calm, Cooperative, Appropriate Pain Symptoms : Yes SABRINA BARRIOS RN - 02/26/2016 21:29 CDT Coping Grid Stable mood with appropriate affect : Yes Family supportive and involved in care : Yes SABRINA BARRIOS RN - 02/26/2016 21:29 CDT Safety Grid Vision, Hearing, Mobility Adequate to Meet Safety Needs : Yes SABRINA BARRIOS RN - 02/26/2016 21:29 CDT Pain Scale Pain [...] Sounds All Quadrants : Present SABRINA BARRIOS RN - 02/26/2016 21:29 CDT Genitourinary Patient Stated Symptoms : None Urinary Elimination : Voiding, no difficulties Urine Color : Yellow Urine Description : Clear SABRINA BARRIOS RN - 02/26/2016 21:29 CDT Integumentary Integumentary Patient Stated Symptoms : None Skin Turgor : Elastic Skin Integrity : Intact Mucous Membrane Color : Almira Mucous Membrane Description : Moist SABRINA BARRIOS [...] BARRIOS RN - 02/26/2016 21:29 CDT Source: [employer] Document Id: [id number] CDT!16 Miscellaneous - Sabrina Barrios R.N. - [...] BARRIOS RN - 02/26/2016 21:24 CDT Source: [employer] Document Id: [id number] CDT!12 Miscellaneous - Whit Thornton C.NEstrella - 02/26/2016 4:46 PM CDT Adult Activities of Daily Living Adult Activities of Daily Living Entered On: 02/26/2016 16:47 CDT Performed On: 02/26/2016 16:46 CDT by WHIT THORNTON C.N.A. ADLs II Hygiene Assistance Grid Leeanna Care : Maximum assistance Shower : Maximum assistance Upper Body Dressing(Clothing) : Maximum assistance Lower Body Dressing(Clothing) : Maximum assistance WHIT THORNTON C.N.A. - 02/26/2016 16:46 CDT Bowel Movement Last Date : 02/25/2016 CDT Standard Safety : Bed in low position, Call device within reach, Non-Slip footwear WHIT THORNTON C.N.A. - 02/26/2016 16:46 CDT Source: [employer] Document Id: [id number] CDT!9 Enriquetacelllucian - Whit Thornton C.NEstrella - 02/26/2016 1:06 PM CDT Adult Activities of Daily Living Adult Activities of Daily Living Entered On: 02/26/2016 13:06 CDT Performed On: 02/26/2016 13:06 CDT by WHIT THORNTON C.N.A. ADLs I Ambulation Distance : 68 m(Converted to: 223 ft 1 inch(es), 6,800 cm) WHIT THORNTON C.N.A. - 02/26/2016 13:06 CDT ADLs II Bowel Movement Last Date : 02/25/2016 CDT WHIT THORNTON C.N.A. - 02/26/2016 13:06 CDT ADLs Adult Nutrition Diet Type : Diet -- 02/21/16 13:31:00 CDT, General (No Restrictions) WHIT THORNTON C.N.A. - 02/26/2016 13:06 CDT Source: [facility] POWERCHART Document Id: [id number] CDT!7 Miscellaneous - Eliseo Quezada Pharm.D., R.Ph. - 02/26/2016 9:48 AM CDT Anticoagulation [...] Plan completed by : ELISEO Hendrickson - 02/26/2016 9:48 CDT ELISEO QUEZADA - [...] darya lackey LM /pharmacy ELISEO QUEZADA - 02/26/2016 9:48 CDT ELISEO QUEZADA - 02/26/2016 9:48 CDT ELISEO QUEZADA - 02/26/2016 9:48 CDT ELISEO QUEZADA - 02/26/2016 9:48 CDT Date : 04/17/2014 CDT 04/24/2014 CDT 05/01/2014 LOBBYIST 05/15/2014 LOBBYIST Location of INR sample : Lab Lab [...] will trynoted dose called to mom Fabiola [phone] called to Fabiola/no changes Called to mother/Fabiola, not awareof any changes Recommend Recheck : One week One week Two weeks Two weeks Plan completed by : ELISEO WELCH - 02/26/2016 9:48 CDT ELISEO QUEZADA - 02/26/2016 9:48 CDT ELISEO QUEZADA - 02/26/2016 9:48 CDT ELISEO QUEZADA - 02/26/2016 9:48 CDT Date : 06/03/2014 LOBBYIST 06/05/2014 LOBBYIST 06/10/2014 LOBBYIST 06/11/2014 LOBBYIST Location of INR sample : Lab Type [...] Called motherFabiola. Dorita will be staying in [place] 2wks post-surgery & have INR drawn there. [...] lovenox tomorrow AM as ordered. INR in [place] for next several weeks as pt will be recovering there. Recommend Recheck : Other: depending on Dr. Henriquez's preop. Other: 06/18 Other: 06/13/14 Plan completed by : ELISEO GARSIA - 02/26/2016 9:48 CDT ELISEO QUEZADA - 02/26/2016 9:48 CDT ELISEO QUEZADA - 02/26/2016 9:48 CDT ELISEO QUEZADA - 02/26/2016 9:48 CDT Date : 06/14/2014 LOBBYIST 06/14/2014 LOBBYIST 06/16/2014 LOBBYIST 06/23/2014 LOBBYIST Location of INR sample : Clinic Lab Lab Type of Sample : Venous Venous INR Result : 1.3 on 06/13 2.4 faxed from lab 2.0 Warfarin Dose : (pt took 2.5mg 06/13) 5mg Sat and 5mg Sun (06/14 and 06/15) 5mg Mon and 2.5mg all other days 5mg Mon and 2.5mg all other days Total Weekly Warfarin Dose : 20 20 Comment : [place] lab called with INR result from 06/13, reported they left a message with Dr. Henriquez and hadn't heard back, spoke with motherFabiola, and gave doses, continue Lovenox and repeat INR 06/16, message left with INR clinic in [place] to contact [facility] Please contact [facility] lab on 06/16 for result and may call Fabiola at [phone] with instructions call to Fabiola/will stop Lovenox injections and take noted dose/pt has an appt here in [place] 06/23 so will do lab appt here that day Called to Fabiola/ Dorita will be back at [facility] by next draw. will have done on . no changes to meds/diet. Recommend Recheck : Two days One week Two weeks Plan completed by : ELISEO Small LM - 02/26/2016 9:48 CDT ELISEO QUEZADA - 02/26/2016 9:48 CDT ELISEO QUEZADA - 02/26/2016 9:48 CDT ELISEO QUEZADA - 02/26/2016 9:48 CDT Date : 07/10/2014 LOBBYIST 07/17/2014 LOBBYIST 07/31/2014 LOBBYIST 09/11/2014 CDT Location of INR sample : [...] Plan completed by : ELISEO Singer - 02/26/2016 9:48 CDT ELISEO QUEZADA - 02/26/2016 9:48 CDT ELISEO QUEZADA 02/26/2016 9:48 CDT ELISEO QUEZADA - 02/26/2016 9:48 CDT Date : 10/23/2014 [...] week Plan completed by : ELISEO Valle 02/26/2016 9:48 CDT ELISEO QUEZADA - 02/26/2016 9:48 CDT NELSON ELISEO Benavides - 02/26/2016 9:48 CDT HUMPHREYBRIANAELISEO - 02/26/2016 9:48 CDT Date : 12/04/2014 [...] 9:48 CDT Date : 04/09/2015 CDT 05/07/2015 LOBBYIST 06/04/2015 LOBBYIST 07/02/2015 LOBBYIST Location of INR sample : Lab Lab [...] - 02/26/2016 9:48 CDT Date : 08/06/2015 LOBBYIST 09/17/2015 CDT 10/29/2015 CDT 11/12/2015 CDT Location [...] Feliciano - 02/26/2016 9:48 CDT ELISEO QUEZADA - [...] Taylor - 02/26/2016 9:48 CDT ELISEO QUEZADA - [...] Tyshawn Brizuela, Pharm.DMichael Brizuela PharmJaime ASTUDILLO, PharmD PharmD. NELSON Leon PAUL A - 02/26/2016 9:48 CDT ELISEO QUEZADA - [...] completed by : Eliseo Quezada PharmD. Eliseo Quezada PharmD. Tyshawn Brizuela, Pharm.DPharmD. NELSON Machado PAUL A - 02/26/2016 9:48 CDT ELISEO QUEZADA - 02/26/2016 9:48 CDT ELISEO QUEZADA - 02/26/2016 9:48 CDT ELISEO QUEZADA - 02/26/2016 9:48 CDT Source: [facility] [employer] Document Id: [id number] CDT!604 Tanya Rodriguez C.NMichaelAMichael - 02/26/2016 8:54 AM CDT Adult Activities [...] TANYA KAY - 02/26/2016 8:54 CDT Source: [employer] Document Id: [id number] CDT!7 Tanya Rodriguez C.N.A. - 02/26/2016 8:53 AM CDT Adult [...] TANYA KAY - 02/26/2016 8:53 CDT Source: [employer] Document Id: [id number] CDT!6 Jenny Caro R.N. - 02/26/2016 8:00 AM CDT Adult [...] ICU : S1S2 Nail Bed Color : Almira Capillary Refill : Less than 2 seconds JENNY ABREU RN - 02/26/2016 13:30 CDT Edema Assessment : Yes JENNY ABREU RN - 02/26/2016 14:44 CDT JENNY ABREU RN - 02/26/2016 14:44 CDT Radial Pulse, Left : 2+ Normal Radial Pulse, Right : 2+ Normal Posttibial Pulse, Left : 2+ Normal Posttibial Pulse, Right : 2+ Normal Dorsalis Pedis Pulse, Left : 2+ Normal Dorsalis Pedis Pulse, Right : 2+ Normal JENNY ABREU RN - 02/26/2016 13:30 CDT Skin Color : Normal for ethnicity Skin Description : Dry Skin Temperature : Warm Activity Tolerance : Without distress JENNY ABREU RN - 02/26/2016 13:30 CDT Edema Details Edema Detailed Grid Ankle Edema Pedal Edema Right : 1+ trace/2mm 1+ trace/2mm JENNY ABREU RN - 02/26/2016 14:44 CDT JENNY ABREU RN - 02/26/2016 14:44 CDT Antiembolism Device Antiembolism [...] JENNY ABREU RN - 02/26/2016 13:30 CDT [place] Coma Eye Opening Response Kathleen : Spontaneously Best Verbal Response [place] : Oriented Best Motor Response Kathleen : Obeys simple commands [place] Coma Score : 15 JENNY ABREU Stoney MARCUS - 02/26/2016 13:30 CDT Oral Assessment Lips : Smooth, pink, moist, intact Gingiva : [place], smooth, moist, intact Tongue : Smooth, pink, moist, intact Teeth : Clean, no debris Saliva : Thin, watery, plentiful JENNY ABREU Stoney RN - 02/26/2016 13:30 CDT Psycho/Emotional Affect/Behavior : Calm, Cooperative, Appropriate Pain Symptoms : Yes URI JENNYMatt Lua RN - 02/26/2016 13:30 CDT Pain Scale Pain Scale Verbal 0-10 : Open JENNY ABREU Stoney MARCUS - 02/26/2016 13:30 CDT Pain Pain Assessment Grid Pain 1 Location : Lower leg Laterality : Right Intensity : 8 Aggravating Factors : Movement Alleviating Factors : None Associated Symptoms : None Interventions : Medications JENNY ABREU Stoney RN - 02/26/2016 13:30 CDT Gastrointestinal GI Patient Stated Symptoms : None Abdomen Description : Rounded Abdomen Palpation : Non-Tender, Soft Bowel Movement Last Date : 02/25/2016 CDT Bowel Sounds All Quadrants : Present JENNY ABREU RN - 02/26/2016 13:30 CDT Nutrition Appetite : Good Eating Difficulties : None Feeding Ability : Complete independence JENNY ABREU Stoney RN - 02/26/2016 13:30 CDT Genitourinary Patient Stated Symptoms : None Urinary Elimination : Voiding, no difficulties Urine Color : Yellow Urine Description : Clear JENNY ABREU Stoney MARCUS - 02/26/2016 13:30 CDT Integumentary Integumentary Patient Stated Symptoms : None Skin Turgor : Non-Elastic Skin Integrity : Not intact Mucous Membrane Color : Almira Mucous Membrane Description : Moist JENNY ABREU Stoney RN - 02/26/2016 13:30 CDT Skin Abnormality/Location Grid Location : Lower leg Other: all over body, arms, butt, legs Laterality : Right Abnormality : Excoriation, Flaking, Other: tight Other: psoriasis Comments (Comment: No open areas noted. [URI JENNY Lua RN - 02/26/2016 13:30 CDT] ) JENNY [...] ABREU RN - 02/26/2016 13:30 CDT Source: [employer] Document Id: [id number] CDT!14 [place] - Eliane Benjamin, C.N.A. - 02/25/2016 9:30 PM CDT Adult Activities [...] BENJAMIN CNA - 02/25/2016 21:59 CDT Source: [employer] Document Id: [id number] CDT!8 [place] - Eliane Benjamin, C.N.A. 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 Document Id: [id number] CDT!8 Miscellaneous - Sayda Andrews R.N. - [...] Yes/No : Yes Nail Bed Color : Almira Capillary Refill : Less than 2 seconds [...] Antiembolism Device : Other: tubigrip and coumadin BERTHA ANDREWSKennedy Treviño RN 02/25/2016 18:19 CDT Neurological Neuro Patient Stated Symptoms : Other: Downs syndrome Orientation : Oriented x 3 Level of Consciousness : Alert Gait : Steady, Wide based Swallowing Difficulty/Aspiration Risk : None Last Well Time Known : Not applicable SAYDA ANDREWS Hudson MARCUS - 02/25/2016 18:19 CDT Kathleen Coma Eye Opening Response [place] : Spontaneously Best Verbal Response Kathleen : Oriented Best Motor Response [place] : Obeys simple commands Kathleen Coma Score : 15 IVY SAYDA R RN - 02/25/2016 18:19 CDT Psycho/Emotional Affect/Behavior : Calm, Cooperative, Appropriate Pain Symptoms : Yes SHERIFGURINDER SAYDAKIP Treviño RN - 02/25/2016 18:19 CDT Coping Grid [...] : Yes Values/Beliefs incorporated appropriately : Yes SHERIFSAYDA FAIRCHILD RN - 02/25/2016 18:19 CDT Safety Grid Vision, Hearing, Mobility Adequate to Meet Safety Needs : No SHERIFGURINDER SAYDAKIP Treviño RN - 02/25/2016 18:19 CDT Pain Scale Pain Scale Verbal 0-10 : Open SHERIFGURINDER SAYDAKIP Treviño RN 02/25/2016 18:19 CDT Pain Pain Assessment Grid Pain 1 Location : Lower leg Laterality : Right Aggravating Factors : Movement, Palpation Alleviating Factors : Medication, Rest Interventions : Medications, Rest SHERIFGURINDER SAYDAKIP Treviño RN 02/25/2016 18:19 CDT Gastrointestinal GI Patient Stated Symptoms : None Abdomen Description : Obese, Symmetric Abdomen Palpation : Non-Tender Bowel Movement Last Date : 02/25/2016 CDT Bowel Sounds All Quadrants : Present Stool Color : Brown Stool Description : Loose Stool Amount : Moderate Passing Flatus : Yes SHERIFSAYDA FAIRCHILD RN 02/25/2016 18:19 CDT Genitourinary Patient Stated Symptoms : None Urinary Elimination : Voiding, no difficulties Urine Color : Yellow Urine Description : Clear Bladder Distention : Absent SHERIFSAYDA FAIRCHILD RN - 02/25/2016 18:19 CDT Integumentary Integumentary Patient Stated Symptoms : None Skin Turgor : Elastic Skin Integrity : Not intact Mucous Membrane Color : Almira Mucous Membrane Description : Moist SAYDA ANDREWS Hudson MARCUS - 02/25/2016 18:19 CDT Skin Abnormality/Location Grid Location : Lower leg Other: all over body, arms, butt, legs Laterality : Right Abnormality : Excoriation, Flaking, Other: tight Other: psoriasis Treatment : Lotion, Other: tubigrip SAYDA ANDREWS Hudson MARCUS - 02/25/2016 18:19 CDT SAYDA ANDREWS Hudson MARCUS 02/25/2016 18:19 CDT Skin Color : Normal for ethnicity Skin Description : Normal, Other: psoriasis Skin Temperature : Warm SAYDA ANDREWS Hudson MARCUS 02/25/2016 18:19 CDT Incision/Wound Incision/Wound Care Grid Activity : Assessed Wound Type : Other: cellulitis Location : Lower leg Laterality : Right SAYDA ANDREWS Hudson MARCUS 02/25/2016 18:19 CDT Mando Sensory Perception Mando : No impairment Moisture Mando : Occasionally moist Activity Mando : Walks frequently Mobility Mando : No limitations Nutrition Mando : Excellent Friction and Shear Mando : No apparent problem Mando Score : 22 SAYDA ANDREWS Hudson MARCUS 02/25/2016 18:19 CDT Peripheral IV Peripheral IV [...] Site Condition : No complications SAYDA ANDREWS Hudson MARCUS - 02/25/2016 18:19 CDT IVY SAYDA Hudson MARCUS 02/25/2016 18:19 CDT IVY SAYDA Hudson MARCUS 02/25/2016 18:19 CDT Hendrich II Fall Risk [...] ANDREWS RN - 02/25/2016 18:19 CDT Source: [employer] Document Id: [id number] CDT!163 Miscellaneous - Sayda Andrews RMichaelN. - 02/25/2016 6:17 PM CDT Adult Activities [...] ANDREWS RN - 02/25/2016 18:17 CDT Source: [employer] Document Id: [id number] CDT!13 [place] - Rey Liriano, C.N.A. - 02/25/2016 5:14 PM CDT [...] REY LIRIANO - 02/25/2016 17:14 CDT [facility] [employer] Document Id: [id number] CDT!16 Kolby - Rey Liriano, C.N.A. - 02/25/2016 5:08 PM CDT Adult [...] REY LIRIANO - 02/25/2016 17:08 CDT Source: [employer] Document Id: [id number] CDT!8 Kol[place] - Rey Liriano, C.N.A. - 02/25/2016 [...] REY Sams - 02/25/2016 15:46 CDT Source: [employer] Document Id: [id number] CDT!6 [place] - Rey Liriano, C.N.A. - [...] REY Sams - 02/25/2016 15:46 CDT Source: [employer] Document Id: [id number] CDT!6 Miscellaneous - Sabrina Medina R.N. - 02/25/2016 1:40 PM CDT Adult Activities [...] Avina RN - 02/25/2016 13:40 CDT Source: [employer] Document Id: [id number] CDT!6 Miscellaneous - Sasha Brizuela Pharm.D., R.Ph. [...] by : SASHA Hutson Pharm.D., R.Ph. - 02/25/2016 13:12 CDT SASHA [...] by : SASHA Henson Pharm.D., R.Ph. - 02/25/2016 13:12 SASHA REILLY.Rohit, R.Ph. - 02/25/2016 13:12 SASHA REILLY PharmJaime, R.Ph. - 02/25/2016 13:12 SASHA REILLY.D., R.Ph. - 02/25/2016 13:12 CDT Date : [...] Date : 04/17/2014 CDT 04/24/2014 CDT 05/01/2014 LOBBYIST 05/15/2014 LOBBYIST Location of INR sample : Lab Lab [...] will trynoted dose called to mom Fabiola [phone] called to Fabiola/no changes Called to mother/Fabiola, not awareof any changes Recommend Recheck : One week One week Two weeks Two weeks Plan completed by : SASHA BENTON Pharm.D., R.Ph. - 02/25/2016 13:12 CDT SASHA BRIZUELA.Rohit, R.Ph. - 02/25/2016 13:12 CDT SASHA BRIZUELA.Rohit, R.Ph. - 02/25/2016 13:12 CDT SASHA BRIZUELA.Rohit, R.Ph. - 02/25/2016 13:12 CDT Date : 06/03/2014 LOBBYIST 06/05/2014 LOBBYIST 06/10/2014 LOBBYIST 06/11/2014 LOBBYIST Location of INR sample : Lab Type [...] Called motherFabiola. Dorita will be staying in [place] 2wks post-surgery & have INR drawn there. [...] lovenox tomorrow AM as ordered. INR in [place] for next several weeks as pt will be recovering there. Recommend Recheck : Other: depending on Dr. Henriquez's preop. Other: 06/18 Other: 06/13/14 Plan completed by : SASHA JESSICA Pharm.D., R.Ph. - 02/25/2016 13:12 CDT SASHA BRIZUELA.Valentina., R.Ph. - 02/25/2016 13:12 CDT SASHA BRIZUELA.Valentina., R.Ph. - 02/25/2016 13:12 CDT SASHA BRIZUELA Pharm.D., R.Ph. - 02/25/2016 13:12 CDT Date : 06/14/2014 LOBBYIST 06/14/2014 LOBBYIST 06/16/2014 LOBBYIST 06/23/2014 LOBBYIST Location of INR sample : Clinic Lab Lab Type of Sample : Venous Venous INR Result : 1.3 on 06/13 2.4 faxed from lab 2.0 Warfarin Dose : (pt took 2.5mg 06/13) 5mg Sat and 5mg Sun (06/14 and 06/15) 5mg Mon and 2.5mg all other days 5mg Mon and 2.5mg all other days Total Weekly Warfarin Dose : 20 20 Comment : [place] lab called with INR result from 06/13, reported they left a message with Dr. Henriquez and hadn't heard back, spoke with mother, Fabiola, and gave doses, continue Lovenox and repeat INR 06/16, message left with INR clinic in to contact CF Please contact [place] lab on 06/16 for result and may call Fabiola at [phone] with instructions call to Fabiola/will stop Lovenox injections and take noted dose/pt has an appt here in 06/23 so will do lab appt here that day Called to Fabiola/ Dorita will be back at [facility] by next draw. will have done on . no changes to meds/diet. Recommend Recheck : Two days One week Two weeks Plan completed by : SASHA Birch LM, Pharm.D., R.Ph. - 02/25/2016 13:12 CDT SASHA BRIZUELA Pharm.D., R.Ph. - 02/25/2016 13:12 PATRICIAT SASHA BRIZUELA Pharm.D., R.Ph. - 02/25/2016 13:12 PATRICIAT SASHA BRIZUELA Pharm.D., R.Ph. - 02/25/2016 13:12 CDT Date : 07/10/2014 LOBBYIST 07/17/2014 LOBBYIST 07/31/2014 LOBBYIST 09/11/2014 CDT Location of INR sample : [...] by : SASHA Yuen Pharm.D., R.Ph. - 02/25/2016 13:12 CDT SASHA BRIZUELA Pharm.D., R.Ph. - 02/25/2016 13:12 PATRICIAT SASHA BRIZUELA Pharm.D., R.Ph. - 02/25/2016 13:12 PATRICIAT SASHA BRIZUELA Pharm.D., R.Ph. - 02/25/2016 13:12 [...] completed by : SASHA Pantoja.Rohit, R.Ph. - 02/25/2016 13:12 CDT SASHA BRIZUELA [...] is she is 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 Beet[employer]erics/no bleeding/consult with Quintin/Pharmacy and called Mom with orders Per Meredith Hernandez, no changes, has been drinking some Kiwi Juice, no bleeding/consult with Quintin/Pharmacy Called to mom /Fabiola, no changes, rev'd w/BCarlson/Pharmacy Recommend Recheck : Three weeks One week One week One week Plan completed by : SASHA Pedroza Pharm.Rohit, R.Ph. - 02/25/2016 13:12 CDT SASHA BRIZUELA Pharm.Rohit, R.Ph. - 02/25/2016 13:12 CDT SASHA BRIZUELA [...] 13:12 CDT Date : 04/09/2015 CDT 05/07/2015 LOBBYIST 06/04/2015 LOBBYIST 07/02/2015 LOBBYIST Location of INR sample : Lab Lab [...] SASHA Suarez Pharm.D., R.Ph. - 02/25/2016 13:12 CDSASHA MCBRIDE.Rohit, R.Ph. - 02/25/2016 13:12 SASHA REILLY Pharm.D., R.Ph. - 02/25/2016 13:12 CDT SASHA BRIZUELA Pharm.D., R.Ph. - 02/25/2016 13:12 CDT Date : 08/06/2015 LOBBYIST 09/17/2015 CDT 10/29/2015 CDT 11/12/2015 CDT Location [...] SASHA Bertrand Pharm.D., R.Ph. - 02/25/2016 13:12 CDSASHA MCBRIDE Pharm.D., R.Ph. - 02/25/2016 13:12 SASHA REILLY Pharm.D., R.Ph. - 02/25/2016 13:12 CDSASHA MCBRIDE [...] Quintana Pharm.D., R.Ph. - 02/25/2016 13:12 CDT SASHA [...] : Tyshawn Brizuela, Pharm.DMichael Brizuela, Pharm.DMichael ASTUDILLO, PharmValentina Quezada, PharmSASHA BARRY Pharm.DMichael, R.Ph. - 02/25/2016 13:12 CDT SASHA BRIZUELA PharmJaime, R.Ph. - 02/25/2016 13:12 CDT SASHA BRIZUELA Pharm.DMichael, R.Ph. - 02/25/2016 13:12 CDT SASHA BRIZUELA PharmMichaelDMichael, R.Ph. - 02/25/2016 13:12 CDT Date : [...] by : Eliseo Quezada, PharmD. Eliseo Quezada, Alida. Tyshawn Brizuela, Pharm.D. SASHA BRIZUELA Pharm.D., R.Ph. - 02/25/2016 13:12 CDT SASHA BRIZUELA PharmJaime, R.Ph. - 02/25/2016 13:12 CDT SASHA BRIZUELA Pharm.DMichael, R.Ph. - 02/25/2016 13:12 CDT [facility] Document Id: [id number] CDT!595 Miscellaneous - Sabrina Medina R.N. - [...] Yes/No : Yes Nail Bed Color : Almira Capillary Refill : Less than 2 seconds [...] mild/4mm 2+ mild/4mm 2+ mild/4mm SABRINA MEDINA ANGELINE 02/25/2016 9:06 CDT SABRINA MEDINA ANGELINE 02/25/2016 9:06 CDT SABRINA MEDINA ANGELINE 02/25/2016 9:06 CDT Antiembolism Device Antiembolism Device : Sequential Compression Device Antiembolism Device Laterality : Bilateral Antiembolism Device Status : Off SABRINA MEDINA ANGELINE 02/25/2016 9:06 CDT Neurological Neuro Patient Stated Symptoms : None Orientation : Oriented x 3 Level of Consciousness : Alert Gait : Steady Swallowing Difficulty/Aspiration Risk : None Last Well Time Known : Not applicable SABRINA MEDINA ANGELINE 02/25/2016 9:06 CDT Kathleen Coma Eye Opening Response Kathleen : Spontaneously Best Verbal Response [place] : Oriented Best Motor Response Kathleen : Obeys simple commands Kathleen Coma Score : 15 SABRINA MEDINA ANGELINE 02/25/2016 9:06 CDT Psycho/Emotional Affect/Behavior : Calm, Cooperative, Appropriate Pain Symptoms : No Feels Rested : Yes SABRINA MEDINA ANGELINE 02/25/2016 9:06 CDT Coping Grid Identifies effective [...] incorporated appropriately : Yes SABRINA MEDINA ANGELINE 02/25/2016 9:06 CDT Safety Grid Vision, Hearing, Mobility Adequate to Meet Safety Needs : Yes SABRINA MEDINA ANGELINE 02/25/2016 9:06 CDT Gastrointestinal GI Patient Stated Symptoms : None Abdomen Description : Obese, Symmetric Abdomen Palpation : Non-Tender, Soft Bowel Movement Last Date : 02/24/2016 CDT Bowel Sounds All Quadrants : Present Passing Flatus : Yes SABRINA MEDNIA ANGELINE 02/25/2016 9:06 CDT Nutrition Appetite : Excellent Eating Difficulties : None Feeding Ability : Complete independence SABRINA MEDINA ANGELINE 02/25/2016 9:06 CDT Genitourinary Patient Stated Symptoms : None Urinary Elimination : Voiding, no difficulties Urine Color : Yellow Urine Description : Clear Urine Odor : Odorless SABRINA MEDINA ANGELINE 02/25/2016 9:06 CDT Integumentary Integumentary Patient Stated Symptoms : None Skin Turgor : Elastic Skin Integrity : Intact Mucous Membrane Color : Almira Mucous Membrane Description : Moist SABRINA MEDINA ANGELINE 02/25/2016 9:06 CDT Skin Abnormality/Location Grid Location : Lower leg Other: all over body, arms, butt, legs Laterality : Right Abnormality : Excoriation, Flaking, Other: tight Other: psoriasis SABRINA MEDINA ANGELINE 02/25/2016 9:06 CDT SABRINA MEDINA AGNELINE 02/25/2016 9:06 CDT Skin Color : Normal for ethnicity Skin Description : Normal Skin Temperature : Warm SABRINA MEDINA ANGELINE 02/25/2016 9:06 CDT Incision/Wound Incision/Wound Care Grid Activity : Assessed Wound Type : Other: cellulitis Location : Lower leg Laterality : Right Description : Dry Color : Red, Almira Drainage : None Surrounding Tissue : Edema, Intact Wound Dressing : Other: Compressogrip applied from toes to ankle and from ankle to knee Neurovascular Status : Neurovascular intact distal to injury, Pulses distal to injury palpable, Skindistal to injury warm and pink SABRINA MEDINA ANGELINE 02/25/2016 9:06 CDT Mando Sensory Perception Mando : No impairment Moisture Mando : Rarely moist Activity Mando : Walks frequently Mobility Mando : No limitations Nutrition Mando : Excellent Friction and Shear Mando : Potential problem Mando Score : 22 SABRINA MEDINA ANGELINE 02/25/2016 9:06 CDT Musculoskeletal Musculoskeletal Patient Stated Symptoms : None Activity Tolerance : Without distress SABRINA MEDINA ANGELINE 02/25/2016 9:06 CDT Peripheral IV Peripheral IV [...] Flow/ Patency : No complications SABRINA MEDINA Hudson MARCUS 02/25/2016 9:06 CDT SABRINA MEDINA RN - 02/25/2016 9:06 CDT SABRINA MEDINA RN - 02/25/2016 9:06 CDT Hendrich II Fall Risk [...] : Verbalizes understanding SABRINA MEDINA RN - 02/25/2016 9:06 CDT Source: [employer] Document Id: [id number] CDT!173 Miscellaneous - Eliane Benjamin, C.N.A. - 02/24/2016 9:00 [...] Leeanna Care : Maximum assistance ELIANE BENJAMIN [facility] - 02/24/2016 22:30 CDT Bowel Movement Last Date : 02/24/2016 CDT Standard Safety : Bed alarm ON, Bed in low position, Call device within reach, Gait belt, Non-Slip footwear ELIANE BENJAMIN [facility] - 02/24/2016 22:30 CDT [facility] Document Id: [id number] CDT!8 Miscellaneous - Sayda Andrews RMichaelNMichael - 02/24/2016 7:42 PM CDT Adult Ongoing Assessment Adult Ongoing Assessment Entered On: 02/24/2016 19:51 CDT Performed On: 02/24/2016 19:42 CDT by SAYDA ANDRESW RN Respiratory Respiratory Patient Stated Symptoms : [...] Yes/No : Yes Nail Bed Color : Almira Capillary Refill : Less than 2 seconds Edema Assessment : Yes SADYA ANDREWS RN - 02/24/2016 19:42 CDT Radial [...] SAYDA ANDREWS RN - 02/24/2016 19:42 CDT BERTHA ANDREWSKennedy Treviño RN - 02/24/2016 19:42 CDT Antiembolism Device Antiembolism Device : Other: tubigrip Antiembolism Device Laterality : Right Antiembolism Device Status : Off SHERIFGURINDERBERTHAKennedy Treviño RN - 02/24/2016 19:42 CDT Neurological Neuro Patient Stated Symptoms : Other: Down Syndrome Orientation : Oriented x 3 Level of Consciousness : Alert Gait : Steady, Wide based Swallowing Difficulty/Aspiration Risk : None Last Well Time Known : Not applicable SHERIFSAYDA FAIRCHILD RN - 02/24/2016 19:42 CDT Roundhill Coma Eye Opening Response Kathleen : Spontaneously Best Verbal Response [place] : Oriented Best Motor Response [place] : Obeys simple commands [place] Coma Score : 15 SHERIFGURINDER SAYDAKIP Treviño RN - 02/24/2016 19:42 CDT Psycho/Emotional Affect/Behavior : Calm, Cooperative, Appropriate Pain Symptoms : Yes SHERIFSAYDA FAIRCHILD RN - 02/24/2016 19:42 CDT Coping Grid [...] : Yes Values/Beliefs incorporated appropriately : Yes SHERIFSAYDA FAIRCHILD RN - 02/24/2016 19:42 CDT Safety Grid Vision, Hearing, Mobility Adequate to Meet Safety Needs : No SHERIFSAYDA FAIRCHILD RN - 02/24/2016 19:42 CDT Pain Scale Pain Scale Verbal 0-10 : Open SHERIFSAYDA FAIRCHILD RN - 02/24/2016 19:42 CDT Pain Pain Assessment Grid Pain 1 Location : Lower leg Laterality : Right Alleviating Factors : Medication Interventions : Medications, Repositioning SHERIFGURINDERJULIETSAYDAKIP Treviño RN - 02/24/2016 19:42 CDT Gastrointestinal GI Patient Stated Symptoms : None Abdomen Description : Obese, Symmetric Abdomen Palpation : Non-Tender Bowel Movement Last Date : 02/24/2016 CDT Bowel Sounds All Quadrants : Present Passing Flatus : Yes SHERIFSAYDA FAIRCHILD RN - 02/24/2016 19:42 CDT Nutrition Appetite : Excellent Eating Difficulties : None Feeding Ability : Modified independence SHERIFSAYDA FAIRCHILD RN - 02/24/2016 19:42 CDT Genitourinary Patient Stated Symptoms : None Urinary Elimination : Voiding, no difficulties Bladder Distention : Absent SHERIFGURINDER SAYDAKIP Treviño RN - 02/24/2016 19:42 CDT Integumentary Integumentary Patient Stated Symptoms : None Skin Turgor : Elastic Skin Integrity : Not intact Mucous Membrane Color : Almira Mucous Membrane Description : Moist EVACHLOEBERTHAKennedy Treviño RN - 02/24/2016 19:42 CDT Skin Abnormality/Location Grid Location : Lower leg Other: all over body, arms, butt, legs Laterality : Right Abnormality : Excoriation, Flaking, Other: tight Other: psoriasis Treatment : Other: lotion, tubigrip on in the AM SHERIFSAYDA FAIRCHILD RN - 02/24/2016 19:42 CDT SAYDA ANDREWS RN - 02/24/2016 19:42 CDT Skin Color : Normal for ethnicity Skin Description : Normal, Other: psoriasis Skin Temperature : Warm SHERIFGURINDER SAYDAKIP Treviño RN - 02/24/2016 19:42 CDT Incision/Wound Incision/Wound Care Grid Activity : Assessed Wound Type : Other: cellulitis Location : Lower leg Laterality : Right Description : Dry, Flat, Tender Color : Red, Almira Drainage : None Drainage Amount : None Wound Dressing : Tube gauze Neurovascular Status : Neurovascular intact distal to injury, Pulses distal to injury palpable, Skindistal to injury warm and pink EVACHLOE SAYDA R RN - 02/24/2016 19:42 CDT Manod Sensory Perception Mando : No impairment Moisture Mando : Rarely moist Activity Mando : Walks frequently Mobility Mando : No limitations Nutrition Mando : Excellent Friction and Shear Mando : No apparent problem Mando Score : 23 SHERIFGURINDER SAYDAKIP Treviño RN - 02/24/2016 19:42 CDT Peripheral IV [...] the needle Site Condition : No complications SHERIFGURINDER SAYDAKIP Treviño RN - 02/24/2016 19:42 CDT SAYDA ANDREWS RN - 02/24/2016 19:42 CDT SAYDA ANDREWS RN - 02/24/2016 19:42 CDT Hendrich II [...] Fall Risk Score Hendrich II : 0 SAYDA ANDREWS RN - 02/24/2016 19:42 CDT Safe Patient Handling Safe Pt Handling Independent : No Safe Pt Handling Supervision/Minimal Assistance : Yes - Unmotorized Equipment Safe Pt Handling Equipment Rec : Unmotorized Equipment Repositioning Device Recommended : Yes SAYDA ANDREWS RN - 02/24/2016 19:42 CDT Source: [employer] Document Id: [id number] CDT!166 Miscellaneous - Sayda Andrews RMichaelN. - 02/24/2016 7:34 PM CDT Adult Activities [...] ANDREWS RN - 02/24/2016 19:40 CDT Source: [employer] Document Id: [id number] CDT!13 Miscellaneous - Lorrie Siddiqui C.N.A. - 02/24/2016 6:08 PM CDT Activity Participation Activity Participation Entered On: 02/24/2016 18:09 CDT Performed On: 02/24/2016 18:08 CDT by LORRIE SIDDIQUI Activity Participation Recreational Activity - Restorative : Other: ambulated 4 times this shift LORRIE SIDDIQUI - 02/24/2016 18:08 CDT Source: [employer] Document Id: [id number] CDT!3 Miscellaneous - Lorrie Siddiqui, C.N.A. - [...] LORRIE SIDDIQUI - 02/24/2016 17:30 CDT Source: [employer] Document Id: [id number] CDT!13 Miscellaneous - Sabrina Medina R.N. - 02/24/2016 2:17 PM CDT Adult Activities of Daily Living Adult Activities of Daily Living Entered On: 02/24/2016 14:17 CDT Performed On: 02/24/2016 14:17 CDT by SABRINA MEDINA RN ADLs I Assistive Device : Gait belt, Walker Ambulation Distance : 68 m(Converted to: 223 ft 1 inch(es), 6,800 cm) Ambulation Patient Effort : Good SABRINA MEDINA RN - 02/24/2016 14:17 CDT [facility] [employer] Document Id: [id number] CDT!5 [place] - Eliseo Quezada, Pharm.D., R.Ph. - 02/24/2016 [...] Date : 04/17/2014 CDT 04/24/2014 CDT 05/01/2014 LOBBYIST 05/15/2014 LOBBYIST Location of INR sample : Lab Lab [...] will trynoted dose called to mom Fabiola [phone] called to Fabiola/no changes Called to mother/Fabiola, not awareof any changes Recommend Recheck : One week One week Two weeks Two weeks Plan completed by : MARIA GUADALUPE PRECIADO ELISEO QUEZADA 02/24/2016 14:00 CDELISEO ALMEIDA - 02/24/2016 14:00 CDT ELISEO QUEZADA - 02/24/2016 14:00 CDT ELISEO QUEZADA - 02/24/2016 14:00 CDT Date : 06/03/2014 LOBBYIST 06/05/2014 LOBBYIST 06/10/2014 LOBBYIST 06/11/2014 LOBBYIST Location of INR sample : Lab Type [...] Called motherFabiola. Dorita will be staying in [place] 2wks post-surgery & have INR drawn there. [...] lovenox tomorrow AM as ordered. INR in [place] for next several weeks as pt will be recovering there. Recommend Recheck : Other: depending on Dr. Henriquez's preop. Other: 06/18 Other: 06/13/14 Plan completed by : ELISEO GARSIA - 02/24/2016 14:00 CDELISEO ALMEIDA - 02/24/2016 14:00 CDT ELISEO QUEZADA - 02/24/2016 14:00 CDT ELISEO QUEZADA - 02/24/2016 14:00 CDT Date : 06/14/2014 LOBBYIST 06/14/2014 LOBBYIST 06/16/2014 LOBBYIST 06/23/2014 LOBBYIST Location of INR sample : Clinic Lab Lab Type of Sample : Venous Venous INR Result : 1.3 on 06/13 2.4 faxed from lab 2.0 Warfarin Dose : (pt took 2.5mg 06/13) 5mg Sat and 5mg Sun (06/14 and 06/15) 5mg Mon and 2.5mg all other days 5mg Mon and 2.5mg all other days Total Weekly Warfarin Dose : 20 20 Comment : [place] lab called with INR result from 06/13, reported they left a message with Dr. Henriquez and hadn't heard back, spoke with mother, Fabiola, and gave doses, continue Lovenox and repeat INR 06/16, message left with INR clinic in to contact CF Please contact [place] lab on 06/16 for result and may call Fabiola at [phone] with instructions call to Fabiola/will stop Lovenox injections and take noted dose/pt has an appt here in [place] 06/23 so will do lab appt here that day Called to Fabiola/ Dorita will be back at [facility] by next draw. will have done on . no changes to meds/diet. Recommend Recheck : Two days One week Two weeks Plan completed by : ELISEO Small LM - 02/24/2016 14:00 CDT ELISEO QUEZADA - 02/24/2016 14:00 CDT ELISEO QUEZADA - 02/24/2016 14:00 CDT ELISEO QUEZADA - 02/24/2016 14:00 CDT Date : 07/10/2014 LOBBYIST 07/17/2014 LOBBYIST 07/31/2014 LOBBYIST 09/11/2014 CDT Location of INR sample : [...] weeks Plan completed by : darya BoyceK darya YINBRIANAELISEO - 02/24/2016 14:00 CDT HUMPHREYBRIANAELISEO - 02/24/2016 14:00 CDT HUMPHREYBRIANAELISEO - 02/24/2016 14:00 CDT HUMPHREYBRIANAELISEO - 02/24/2016 14:00 CDT Date : 09/12/2014 [...] CDT ELISEO QUEZADA - 02/24/2016 14:00 CDT HUMPHREYBRIANAELISEO - 02/24/2016 14:00 CDT Date : 10/23/2014 CDT [...] Plan completed by : ELISEO Valle - 02/24/2016 14:00 CDT ELISEO QUEZADA - [...] ELISEO De Dios - 02/24/2016 14:00 CDT ELISEO QUEZADA - 02/24/2016 14:00 CDT ELISEO QUEZADA - 02/24/2016 14:00 CDT HUMPHREYBRIANAELISEO - 02/24/2016 [...] : ELISEO DURHAM - 02/24/2016 14:00 CDT ELISEO QUEZADA - 02/24/2016 14:00 CDT ELISEO QUEZADA - 02/24/2016 14:00 CDT ELISEO QUEZADA - 02/24/2016 14:00 CDT Date : 04/09/2015 CDT 05/07/2015 LOBBYIST 06/04/2015 LOBBYIST 07/02/2015 LOBBYIST Location of INR sample : Lab Lab [...] 5 weeks Plan completed by : darya YINBRIANA ELISEO Benavides - 02/24/2016 14:00 CDT HUMPHREYBRIANA ELISEO Knenedy - 02/24/2016 14:00 CDT JATINBRIANAELISEO - 02/24/2016 14:00 CDT NELSON ELISEO Benavides - 02/24/2016 14:00 CDT Date : 08/06/2015 LOBBYIST 09/17/2015 CDT 10/29/2015 CDT 11/12/2015 CDT Location [...] One week Plan completed by : INESSA YINBRIANAELISEO - 02/24/2016 14:00 CDT HUMPHREYBRIANAELISEO - 02/24/2016 14:00 CDT HUMPHREYBRIANAELISEO - 02/24/2016 14:00 CDT ELISEO QUEZADA - [...] completed by : Tyshawn Brizuela, PharmMichaelDMichael Brizuela PharmJaime ASTUDILLO, PharmD PharmD. NELSON Leon PAUL A - 02/24/2016 14:00 CDT ELISEO QUEZADA - 02/24/2016 14:00 CDT ELISEO QUEZADA - 02/24/2016 14:00 CDT ELISEO QUEZADA - 02/24/2016 14:00 CDT Date : 02/23/2016 CDT 02/24/2016 CDT Location of INR sample : [facility] Type of Sample : Venous Venous [...] A - 02/24/2016 14:00 CDT ELISEO QUEZADA 02/24/2016 14:00 CDT Source: [facility] POWERCHART Document Id: [id number] CDT!586 Sabrina Lindsay R.N. - 02/24/2016 11:23 AM CDT Adult [...] MEDINA RN - 02/24/2016 11:23 CDT Source: [employer] Document Id: [id number] CDT!10 Sabrina Lindsay R.N. - 02/24/2016 8:32 [...] MEDINA RN - 02/24/2016 8:32 CDT Source: [facility] POWERCHART Document Id: [id number] CDT!14 Miscellaneous - Sabrina Medina R.N. - 02/24/2016 8:28 AM CDT Adult [...] Airway : Patent SABRINA MEDINA RN - 02/24/2016 8:28 CDT Cardiovascular CV Patient Stated Symptoms : None Heart Rhythm : Regular Heart Sounds ICU : S1S2 Antiembolism Device Yes/No : No Nail Bed Color : Almira Capillary Refill : Less than 2 seconds Edema Assessment : Yes SABRINA MEDINA RN - 02/24/2016 8:28 CDT Radial Pulse, Left : 2+ Normal Radial Pulse, Right : 2+ Normal Dorsalis Pedis Pulse, Left : 2+ Normal Dorsalis Pedis Pulse, Right : 2+ Normal SABRINA MEDINA RN - 02/24/2016 8:28 CDT Skin Color : Normal for ethnicity Skin Description : Normal Skin Temperature : Warm Activity Tolerance : Without distress SABRINA MEDINA RN - 02/24/2016 8:28 CDT Edema Details Edema Detailed Grid Pretibial Edema Ankle Edema Pedal Edema Right : 2+ mild/4mm 2+ mild/4mm 2+ mild/4mm SABRINA MEDINA RN - 02/24/2016 8:28 CDT SABRINA MEDINA RN - 02/24/2016 8:28 CDT SABRINA MEDINA RN - 02/24/2016 8:28 CDT Neurological Neuro Patient Stated Symptoms : None Orientation : Oriented x 3 Level of Consciousness : Alert Gait : Steady Swallowing Difficulty/Aspiration Risk : None Last Well Time Known : Not applicable SABRINA MEDINA ANGELINE Therese 02/24/2016 8:28 CDT Roundhill Coma Eye Opening Response Roundhill : Spontaneously Best Verbal Response Kathleen : Oriented Best Motor Response Kathleen : Obeys simple commands [place] Coma Score : 15 SABRINA MEDINA RN 02/24/2016 8:28 CDT Psycho/Emotional Affect/Behavior : Calm, Cooperative, Appropriate Pain Symptoms : No Feels Rested : Yes SABRINA MEDINA RN - 02/24/2016 8:28 CDT Coping Grid Identifies effective [...] incorporated appropriately : Yes SABRINA MEDINA RN - 02/24/2016 8:28 CDT Safety Grid Vision, Hearing, Mobility Adequate to Meet Safety Needs : Yes SABRINA MEDINA ANGELINE Therese 02/24/2016 8:28 CDT Gastrointestinal GI Patient Stated Symptoms : None Abdomen Description : Rounded, Symmetric Abdomen Palpation : Non-Tender, Soft Bowel Movement Last Date : 02/23/2016 CDT Bowel Sounds All Quadrants : Present Passing Flatus : Yes SABRINA MEDINA ANGELINE Therese 02/24/2016 8:28 CDT Nutrition Appetite : Good Eating Difficulties : None Feeding Ability : Complete independence SABRINA MEDINA RN - 02/24/2016 8:28 CDT Genitourinary Patient Stated Symptoms : None Urinary Elimination : Voiding, no difficulties SABRINA MEDINA ANGELINE Therese 02/24/2016 8:28 CDT Integumentary Integumentary Patient Stated Symptoms : None Skin Turgor : Elastic Skin Integrity : Intact Mucous Membrane Color : Almira Mucous Membrane Description : Moist SABRINA MEDINA ANGELINE Therese 02/24/2016 8:28 CDT Skin Abnormality/Location Grid Location : Lower leg Other: all over body, arms, butt, legs Laterality : Right Abnormality : Excoriation, Flaking, Other: tight Other: psoriasis SABRINA MEDINA ANGELINE - 02/24/2016 8:28 CDT ADAM SABRINA Treviño ANGELINE 02/24/2016 8:28 CDT Skin Color : Normal for ethnicity Skin Description : Normal Skin Temperature : Warm ADAM, SABRINA R RN - 02/24/2016 8:28 CDT Incision/Wound Incision/Wound Care Grid [...] warm and pink SABRINA MEDINA RN - 02/24/2016 8:28 CDT Mando Sensory Perception Mando : No impairment Moisture Mando : Rarely moist Activity Mando : Walks frequently Mobility Mando : Slightly limited Nutrition Mando : Excellent Friction and Shear Mando : Potential problem Mando Score : 21 ADAMSABRINA ALLEN RN - 02/24/2016 8:28 CDT Musculoskeletal Musculoskeletal Patient Stated [...] SABRINA MEDINA RN - 02/24/2016 8:28 CDT ADAMSABRINA RN - 02/24/2016 8:28 CDT ADAMSABRINA ALLEN RN - 02/24/2016 8:28 CDT Hendrich II [...] MEDINA RN - 02/24/2016 8:28 CDT Source: [employer] Document Id: [id number] CDT!166 Kolby - Deborah Dacosta - 02/24/2016 2:45 AM CDT Adult Activities of Daily Living Adult Activities of Daily Living Entered On: 02/24/2016 2:55 CDT Performed On: 02/24/2016 2:45 CDT by DEBORAH DACOSTA RN I&O Urine Voided : 1 mL DEBORAH DACOSTA RN - 02/24/2016 2:54 CDT Source: [employer] Document Id: [id number] CDT!3 Miscellaneous - Whit Thornton C.NEstrella - 02/23/2016 9:49 PM CDT Adult Activities of Daily Living Adult Activities of Daily Living Entered On: 02/23/2016 21:50 CDT Performed On: 02/23/2016 21:49 CDT by WHIT THORNTON C.N.A. ADLs II Hygiene Assistance Grid Bed Bath : Maximum assistance (Comment: Patients family helped get her ready for bed [WHIT THORNTONNEstrella - 02/23/2016 21:49 CDT] ) WHIT THORNTON C.N.A. - 02/23/2016 21:49 CDT Bowel Movement Last Date : 02/23/2016 CDT Standard Safety : Bed alarm ON, Bed in low position, Call device within reach, Non-Slip footwear WHIT THORNTONNEstrella - 02/23/2016 21:49 CDT Source: [employer] Document Id: [id number] CDT!6 Deborah Simmons - 02/23/2016 8:00 PM CDT Adult Activities [...] DACOSTA RN - 02/23/2016 22:27 CDT Source: [employer] Document Id: [id number] CDT!15 Deborah Simmons - 02/23/2016 8:00 PM CDT Adult Ongoing [...] Yes/No : Yes Nail Bed Color : Almira Capillary Refill : Less than 2 seconds [...] Dry Skin Temperature : Warm DEBORAH DACOSTA Danie RN - 02/23/2016 22:28 CDT Edema Details Edema Detailed Grid Pretibial Edema Ankle Edema Pedal Edema Left : 1+ trace/2mm 1+ trace/2mm 1+ trace/2mm Right : 2+ mild/4mm 2+ mild/4mm 2+ mild/4mm PRANEETHDEBORAH JAMESON Danie RN - 02/23/2016 22:28 CDT PRANEETHDEBORAH JAMESON Danie RN - 02/23/2016 22:28 CDT PRANEETHDEBORAH JAMESON Danie RN - 02/23/2016 22:28 CDT Antiembolism Device Antiembolism Device Status : Patient refused DEBORAH DACOSTA RN - 02/23/2016 22:28 CDT Neurological Neuro Patient Stated Symptoms : None Orientation : Oriented x 3 Level of Consciousness : Alert Gait : Steady Swallowing Difficulty/Aspiration Risk : None PRANEETHDEBORAH JAMESON Danie RN - 02/23/2016 22:28 CDT Roundhill Coma Eye Opening Response Roundhill : Spontaneously Best Verbal Response Kathleen : Oriented Best Motor Response Roundhill : Obeys simple commands Kathleen Coma Score : 15 PRANEETHDEBORAH JAMESON RN - 02/23/2016 22:28 CDT Psycho/Emotional Affect/Behavior : Calm, Cooperative, Anxious Pain Symptoms : Yes PRANEETHDEBORAH JAMESON Danie RN - 02/23/2016 22:28 CDT Pain Scale Pain Scale Verbal 0-10 : Open PRANEETHDEBORAH JAMESON Danie RN - 02/23/2016 22:28 CDT Pain Pain [...] Amount : Large Passing Flatus : Yes DEBORAH DACOSTA Danie RN - 02/23/2016 22:28 CDT Nutrition Appetite : Fair DEBORAH DACOSTA Danie RN - 02/23/2016 22:28 CDT Genitourinary Patient Stated Symptoms : None DEBORAH DACOSTA Danie RN - 02/23/2016 22:28 CDT Integumentary Skin Integrity : Not intact DEBORAH DACOSTA Danie RN - 02/23/2016 22:28 CDT Skin Abnormality/Location Grid Location : Lower leg Other: all over body, arms, butt, legs Laterality : Right Abnormality : Excoriation, Flaking, Other: tight Other: psoriasis PRANEETH DEBORAH Danie RN - 02/23/2016 22:28 CDT PRANEETH DEBORAH Danie RN - 02/23/2016 22:28 CDT Incision/Wound Incision/Wound [...] problem Mando Score : 19 DEBORAH DACOSTA Danie RN - 02/23/2016 22:28 CDT Musculoskeletal Musculoskeletal Patient Stated Symptoms : None Activity Tolerance : Without distress DEBORAH DACOSTA Danie RN - 02/23/2016 22:28 CDT Peripheral IV [...] Score Hendrich II : 2 DEBORAH DACOSTA RN - 02/23/2016 22:28 CDT Safe Patient [...] : Needs reinforcement, Verbalizes understanding DEBORAH DACOSTA RN - 02/23/2016 22:28 CDT Source: [employer] Document Id: [id number] CDT!153 Miscellaneous - Bella Solis, C.N.A. - [...] SOLIS CNA - 02/23/2016 16:49 CDT [facility] POWERCHART Document Id: [id number] CDT!12 Miscellaneous - Sabrina Barrios R.N. - [...] Yes/No : Yes Nail Bed Color : Almira Capillary Refill : Less than 2 seconds [...] 8:34 CDT Kathleen Coma Eye Opening Response Kathleen : Spontaneously Best Verbal Response Kathleen : Oriented Best Motor Response Kathleen : Obeys simple commands Roundhill Coma Score : 15 KIMBERLISABRINA RN - 02/23/2016 8:34 CDT Psycho/Emotional Affect/Behavior : Calm, Cooperative, Appropriate Pain Symptoms : Yes Feels Rested : Yes SABRINA BARRIOS RN - 02/23/2016 8:34 CDT Coping Grid Stressors perceived within control : Yes Stable mood with appropriate affect : Yes Behaviors indicate use of coping mechanism : Yes Family supportive and involved in care : Yes SABRINA BARRIOS RN - 02/23/2016 8:34 CDT Safety Grid Vision, Hearing, Mobility Adequate to Meet Safety Needs : Yes SABRINA BARRIOS RN 02/23/2016 8:34 CDT Pain Scale Pain Scale Verbal 0-10 : Open SABRINA BARRIOS RN 02/23/2016 8:34 CDT Pain Pain Assessment Grid Pain 1 Location : Lower leg Laterality : Right Intensity : 6 SABRINA BARRIOS RN - 02/23/2016 8:34 CDT Gastrointestinal GI Patient Stated Symptoms : None Abdomen Description : Rounded, Symmetric Abdomen Palpation : Non-Tender, Soft Bowel Movement Last Date : 02/23/2016 CDT Bowel Sounds All Quadrants : Present Stool Color : Brown, Black Stool Description : Liquid, Loose Stool Amount : Moderate Passing Flatus : Yes SABRINA BARRIOS RN - 02/23/2016 8:34 CDT Genitourinary Patient Stated Symptoms : None Urinary Elimination : Voiding, no difficulties Urine Color : Yellow Urine Description : Clear SABRINA BARRIOS RN - 02/23/2016 8:34 CDT Integumentary Integumentary Patient Stated Symptoms : None Skin Turgor : Elastic Skin Integrity : Intact Mucous Membrane Color : Almira Mucous Membrane Description : Moist SABRINA BARRIOS RN - 02/23/2016 8:34 CDT Skin Abnormality/Location Grid Location : Lower leg Other: all over body, arms, butt, legs Laterality : Right Abnormality : Excoriation, Flaking, Other: tight Other: psoriasis Treatment : Other: elevation Lotion SABRINA BARRIOS RN - 02/23/2016 8:34 CDT CHRISTYKARINSABRINA RN - 02/23/2016 8:34 CDT Skin Color : Normal for ethnicity Skin Description : Dry, Normal Skin Temperature : Warm CHRISTYKARINSABRINA RN - 02/23/2016 8:34 CDT Incision/Wound Incision/Wound Care Grid Activity : Assessed Wound Type : Other: cellulitis Location : Lower leg Laterality : Right Description : Edematous, Tender Color : Red, Almira Drainage : None Surrounding Tissue : Dry, [...] Handling Equipment Rec : Unmotorized Equipment SABRINA BARIROS RN - 02/23/2016 8:34 CDT Education General Patient Education Power[employer] Topics : Activity limitations/expectations, Medication dosage, route, scheduling, Medication generic/brand names, purpose, action, Pain Management, Physical limitations, Plan of care, Safety, fall Individuals Taught : Patient Barriers to Learning : None evident Teaching Method : Explanation Teaching Evaluation : Needs reinforcement, Verbalizes understanding SABRINA BARRIOS RN - 02/23/2016 8:34 CDT Source: [employer] Document Id: [id number] CDT!157 Miscelllucian - Sabrina Barrios R.N. - 02/23/2016 8:33 [...] BARRIOS RN - 02/23/2016 8:42 CDT Source: [employer] Document Id: [id number] CDT!17 Miscellaneous - Eliseo Quezada PharmMichaelD., R.Ph. - 02/23/2016 7:58 AM CDT Anticoagulation [...] Plan completed by : darya BURGESS JM ELISEO Nath - 02/23/2016 7:58 CDT ELISEO QUEZADA - [...] darya lackey LM /pharmacy ELISEO QUEZADA - 02/23/2016 7:58 CDT ELISEO QUEZADA - 02/23/2016 7:58 CDT ELISEO QUEZADA - 02/23/2016 7:58 CDT ELISEO QUEZADA - 02/23/2016 7:58 CDT Date : 04/17/2014 CDT 04/24/2014 CDT 05/01/2014 LOBBYIST 05/15/2014 LOBBYIST Location of INR sample : Lab Lab [...] will trynoted dose called to mom Fabiola [phone] called to Fabiola/no changes Called to mother/Fabiola, not awareof any changes Recommend Recheck : One week One week Two weeks Two weeks Plan completed by : ELISEO WELCH - 02/23/2016 7:58 CDT ELISEO QUEZADA - 02/23/2016 7:58 CDT ELISEO QUEZADA - 02/23/2016 7:58 CDT ELISEO QUEZADA - 02/23/2016 7:58 CDT Date : 06/03/2014 LOBBYIST 06/05/2014 LOBBYIST 06/10/2014 LOBBYIST 06/11/2014 LOBBYIST Location of INR sample : Lab Type [...] Called motherDiane. Dorita will be staying in [place] 2wks post-surgery & have INR drawn there. [...] lovenox tomorrow AM as ordered. INR in [place] for next several weeks as pt will be recovering there. Recommend Recheck : Other: depending on Dr. Henriquez's preop. Other: 06/18 Other: 06/13/14 Plan completed by : ELISEO GARSIA - 02/23/2016 7:58 CDT ELISEO QUEZADA - 02/23/2016 7:58 CDT ELISEO QUEZADA - 02/23/2016 7:58 CDT ELISEO QUEZADA - 02/23/2016 7:58 CDT Date : 06/14/2014 LOBBYIST 06/14/2014 LOBBYIST 06/16/2014 LOBBYIST 06/23/2014 LOBBYIST Location of INR sample : Clinic Lab Lab Type of Sample : Venous Venous INR Result : 1.3 on 06/13 2.4 faxed from lab 2.0 Warfarin Dose : (pt took 2.5mg 06/13) 5mg Sat and 5mg Sun (06/14 and 06/15) 5mg Mon and 2.5mg all other days 5mg Mon and 2.5mg all other days Total Weekly Warfarin Dose : 20 20 Comment : [facility] lab called with INR result from 06/13, reported they left a message with Dr. Henriquez and hadn't heard back, spoke with mother, Fabiola, and gave doses, continue Lovenox and repeat INR 06/16, message left with INR clinic in to contact [facility] Please contact [facility] lab on 06/16 for result and may call Fabiola at [phone] with instructions call to Fabiola/will stop Lovenox injections and take noted dose/pt has an appt here in [place] 06/23 so will do lab appt here that day Called to Fabiola/ Dorita will be back at [facility] by next draw. will have done on Th. no changes to meds/diet. Recommend Recheck : Two days One week Two weeks Plan completed by : latasha PRECIADO LM JATINBRIANAELISEO - 02/23/2016 7:58 CDT HUMPHREYBRIANAELISEO - 02/23/2016 7:58 CDT ELISEO QUEZADA - 02/23/2016 7:58 CDT ELISEO QUEZADA - 02/23/2016 7:58 CDT Date : 07/10/2014 LOBBYIST 07/17/2014 LOBBYIST 07/31/2014 LOBBYIST 09/11/2014 CDT Location of INR sample : [...] Plan completed by : darya WYLIE ly ELISEO WETZEL - 02/23/2016 7:58 CDT ELISEO QUEZADA - [...] weeks Plan completed by : ELISEO Singer 02/23/2016 7:58 CDT ELISEO QUEZADA 02/23/2016 7:58 CDT ELISEO QUEZADA - 02/23/2016 7:58 CDT ELISEO QUEZADA 02/23/2016 7:58 CDT Date : 10/23/2014 CDT [...] is she is 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 Beet[employer]/no bleeding/consult with Quintin/Pharmacy and called Mom with orders Per Meredith Hernandez, no changes, has been drinking some Kiwi Juice, no bleeding/consult with Quintin/Pharmacy Called to mom /Fabiola, no changes, rev'd w/BCarlson/Pharmacy Recommend Recheck : Three weeks One week One week One week Plan completed by : ELISEO Valle 02/23/2016 7:58 CDT ELISEO QUEZADA - 02/23/2016 7:58 CDT ELISEO QUEZADA - 02/23/2016 7:58 CDT ELISEO QUEZADA 02/23/2016 7:58 CDT Date : 12/04/2014 CDT [...] completed by : ELISEO De Dios - 02/23/2016 7:58 CDT ELISEO QUEZADA - [...] : ELISEO DURHAM - 02/23/2016 7:58 CDT NELSON ELISEO Benavides - 02/23/2016 7:58 CDT HUMPHREYBRIANAELISEO Kennedy - 02/23/2016 7:58 CDT JATINBRIANAELISEO Kennedy - 02/23/2016 7:58 CDT Date : 04/09/2015 CDT 05/07/2015 LOBBYIST 06/04/2015 LOBBYIST 07/02/2015 LOBBYIST Location of INR sample : Lab Lab [...] 5 weeks Plan completed by : darya YINBRIANAELISEO - 02/23/2016 7:58 CDT JATINBRIANAELISEO - 02/23/2016 7:58 CDT JATINBRIANAELISEO - 02/23/2016 7:58 CDT JATINBRIANAELISEO - 02/23/2016 7:58 CDT Date : 08/06/2015 LOBBYIST 09/17/2015 CDT 10/29/2015 CDT 11/12/2015 CDT Location [...] by : Justin Dunn Pharm.D. MAC, PharmD Eliseo Quezada PharmD. ELISEO QUEZADA - 02/23/2016 7:58 CDT ELISEO [...] : One day Plan completed by : PharmD. NELSON Leon PAUL A - 02/23/2016 7:58 CDT Source: [employer] Document Id: [id number] CDT!577 Miscellaneous - Whit Thornton C.N.A. - 02/22/2016 10:31 PM CDT Adult Activities of Daily Living Adult Activities of Daily Living Entered On: 02/22/2016 22:33 CDT Performed On: 02/22/2016 22:31 CDT by WHIT THORNTON C.N.A. ADLs II Hygiene Assistance Grid Bed Bath : Maximum assistance (Comment: Patients family helped with her cares tonight [WHIT THORNTON C.N.A. - 02/22/2016 22:31 CDT] ) WHIT THORNTON C.N.A. - 02/22/2016 22:31 CDT Bowel Movement Last Date : 02/22/2016 CDT Standard Safety : Bed in low position, Call device within reach, Non-Slip footwear WHIT THORNTON C.N.A. - 02/22/2016 22:31 CDT Source: [facility] POWERCHART Document Id: [id number] CDT!6 Kolby - Sita Harris R.N. - 02/22/2016 8:14 PM CDT Adult Activities [...] HARRIS RN - 02/22/2016 20:14 CDT Source: [facility] [employer] MedicalCHART Document Id: [id number] CDT!18 Kolby - Sita Harris RViktor - 02/22/2016 8:08 PM CDT Adult Ongoing [...] Yes/No : Yes Nail Bed Color : Almira Capillary Refill : Less than 2 seconds Edema Assessment : Yes SITA HARRIS RN - 02/22/2016 20:08 CDT Dorsalis Pedis Pulse, Left : 2+ Normal Dorsalis Pedis Pulse, Right : 2+ Normal SITA HARRIS RN - 02/22/2016 20:08 CDT Skin Color : Normal for ethnicity Skin Description : Dry Skin Temperature : Warm Activity Tolerance : Without distress SITA HARRIS RN - 02/22/2016 20:08 CDT Edema Details Edema Detailed Grid Pretibial Edema Ankle Edema Pedal Edema Bilateral : 1+ trace/2mm 1+ trace/2mm 1+ trace/2mm SITA HARRIS RN - 02/22/2016 20:08 CDT SITA HARRIS RN - 02/22/2016 20:08 CDTHSITA ÁLVAREZ RN - 02/22/2016 20:08 CDT Antiembolism Device Antiembolism Device : Sequential Compression Device Antiembolism Device Laterality : Left Antiembolism Device Status : Patient refused SITA HARRIS RN - 02/22/2016 20:08 CDT Neurological Neuro Patient Stated Symptoms : None Orientation : Oriented x 3 Level of Consciousness : Alert Gait : Steady Swallowing Difficulty/Aspiration Risk : None Last Well Time Known : Not applicable SITA HARRIS RN - 02/22/2016 20:08 CDT Roundhill Coma Eye Opening Response Kathleen : Spontaneously Best Verbal Response Kathleen : Oriented Best Motor Response Kathleen : Obeys simple commands [place] Coma Score : 15 SITA HARRIS ANGELINE [...] : Right Intensity : 7 SITA HARRIS ANGELINE - 02/22/2016 20:08 CDT Gastrointestinal GI Patient Stated Symptoms : None Abdomen Description : Obese, Rounded Abdomen Palpation : Soft Bowel Movement Last Date : 02/22/2016 CDT Bowel Sounds All Quadrants : Present Passing Flatus : Yes SITA HARRIS ANGELINE - 02/22/2016 20:08 CDT Nutrition Appetite : Excellent Eating Difficulties : None Feeding Ability : Complete independence SITA HARRIS - 02/22/2016 20:08 CDT Genitourinary Patient Stated Symptoms : None SITA HARRIS ANGELINE - 02/22/2016 20:08 CDT Integumentary Integumentary Patient Stated Symptoms : Rash Skin Turgor : Elastic Skin Integrity : Not intact Mucous Membrane Color : Almira Mucous Membrane Description : Moist SITA HARRIS ANGELINE - 02/22/2016 20:08 CDT Skin Abnormality/Location Grid Location : Lower leg Other: all over body, arms, butt, legs Laterality : Right Abnormality : Excoriation, Flaking, Other: tight Other: psoriasis Treatment : Lotion Lotion SITA HARRIS ANGELINE - 02/22/2016 20:08 CDT SITA HARRIS ANGELINE - 02/22/2016 20:08 CDT Skin Color : Normal for ethnicity Skin Description : Dry Skin Temperature : Warm SITA HARRIS ANGELINE - 02/22/2016 20:08 CDT Incision/Wound Incision/Wound Care Grid Activity : Assessed Wound Type : Other: cellulitis Location : Lower leg Laterality : Right Description : Dry Color : Red Drainage : None SITA HARRIS RN - 02/22/2016 20:08 CDT Mando Sensory Perception Mando : No impairment Moisture Mando : Rarely moist Activity Mando : Walks frequently Mobility Mando : No limitations Nutrition Mando : Excellent Friction and Shear Mando : No apparent problem Mando Score : 23 SITA HARRIS RN - 02/22/2016 20:08 CDT Peripheral IV Peripheral [...] HARRIS RN - 02/22/2016 20:08 CDT [facility] Document Id: [id number] CDT!142 Miscellaneous - Evelina Gilliam, C.N.A. - 02/22/2016 5:30 [...] GILLIAM CNA - 02/22/2016 17:30 CDT [facility] Document Id: [id number] CDT!8 Kolby - Deborah Dacosta - 02/22/2016 12:19 PM CDT Adult Activities of Daily Living Adult Activities of Daily Living Entered On: 02/22/2016 12:19 CDT Performed On: 02/22/2016 12:19 CDT by DEBORAH DACOSTA [facility] Nutrition Diet Type : Diet -- 02/21/16 13:31:00 CDT, General (No Restrictions) Lunch : 40 % DEBORAH DACOSTA RN - 02/22/2016 12:19 CDT Source: [facility] [employer] Document Id: [id number] CDT!4 Kolby - Bella Solis, C.N.A. - 02/22/2016 10:13 AM CDT Adult Activities of Daily Living Adult Activities of Daily Living Entered On: 02/22/2016 10:14 CDT Performed On: 02/22/2016 10:13 CDT by BELLA SOLIS CNA ADLs II Hygiene Assistance Grid Leeanna Care : family did cares Upper Body Dressing(Clothing) : family did cares Lower Body Dressing(Clothing) : family did BELLA Oakes CNA - 02/22/2016 10:13 CDT Standard Safety : Bed alarm ON, Bed in low position, Call device within reach, Chair Alarm, Gait belt, Non-Slip footwear, Rounds every 1 hour BELLA SOLIS CNA - 02/22/2016 10:13 CDT Source: [facility] Document Id: [id number] CDT!7 Kolby - Sabrina Barrios R.N. - [...] BARRIOS RN - 02/22/2016 9:53 CDT Source: [facility] [employer] Document Id: [id number] CDT!12 Sabrina Calderon R.N. - 02/22/2016 9:49 AM CDT Adult Ongoing [...] : None Airway : Patent SABRINA BARRIOS 02/22/2016 9:49 CDT Resp Detailed Breath Sounds Assessment Grid ARSENIO : Clear RUL : Clear RML : Clear LLL : Diminished RLL : Diminished SABRINA BARRIOS ANGELINE 02/22/2016 14:45 CDT Cardiovascular CV Patient Stated Symptoms : None Heart Rhythm : Regular Heart Sounds ICU : S1S2 Antiembolism Device Yes/No : Yes Nail Bed Color : Almira Capillary Refill : Less than 2 seconds Edema Assessment : Yes KIMBERLI SABRINAHIRAL Larson RN 02/22/2016 14:33 CDT Dorsalis Pedis Pulse, Left : 2+ Normal Dorsalis Pedis Pulse, Right : 2+ Normal KIMBERLI SABRINA Larson ANGELINE 02/22/2016 14:33 CDT Skin Color : Normal for ethnicity Skin Description : Normal Skin Temperature : Warm Activity Tolerance : Without distress KIMBERLI SABRINAHIRAL Larson RN 02/22/2016 14:33 CDT Edema Details Edema Detailed Grid Pretibial Edema Ankle Edema Pedal Edema Right : 1+ trace/2mm 2+ mild/4mm 2+ mild/4mm KIMBERLI SABRINA Marsha MARCUS 02/22/2016 14:33 CDT KIMBERLI SABRINA Marsha MARCUS 02/22/2016 14:33 CDT KIMBERLI SABRINAHIRAL Larson RN 02/22/2016 14:33 CDT Antiembolism Device Antiembolism Device : Sequential Compression Device Antiembolism Device Laterality : Bilateral Antiembolism Device Status : Patient refused KIMBERLI SABRINAHIRAL Larson RN 02/22/2016 14:33 CDT Neurological Neuro Patient Stated Symptoms : None Orientation : Oriented x 3 Level of Consciousness : Alert Gait : Steady Swallowing Difficulty/Aspiration Risk : None KIMBERLI SABRINAHIRAL Larson RN 02/22/2016 14:33 CDT Kathleen Coma Eye Opening Response Kathleen : Spontaneously Best Verbal Response Round[place] : Oriented Best Motor Response Kathleen : Obeys simple commands [place] Coma Score : 15 CHRISTYKARINSABRINA RN 02/22/2016 14:33 CDT Psycho/Emotional Affect/Behavior : Calm, Cooperative, Appropriate Pain Symptoms : Yes Feels Rested : Yes CHRISTYKARINSABRINA RN 02/22/2016 14:33 CDT Coping Grid Identifies [...] incorporated appropriately : Yes SABRINA BARRIOS RN - 02/22/2016 14:33 CDT Safety Grid Vision, Hearing, Mobility Adequate to Meet Safety Needs : Yes SABRINA BARRIOS RN - 02/22/2016 14:33 CDT Pain Scale Pain Scale Verbal 0-10 : Open SABRINA BARRIOS RN - 02/22/2016 14:33 CDT Pain Pain Assessment Grid Pain 1 Pain 2 Location : Lower leg Knee Laterality : Right Right Intensity : 7 7 Acceptable Intensity : 4 4 SABRINA BARRIOS RN - 02/22/2016 14:33 CDT SABRINA BARRIOS RN - 02/22/2016 14:33 CDT Gastrointestinal Abdomen Palpation : Non-Tender, Soft Bowel Movement Last Date : 02/22/2016 CDT Bowel Sounds All Quadrants : Present Passing Flatus : Yes SABRINA BARRIOS RN - 02/22/2016 16:08 CDT GI Patient Stated Symptoms : None Abdomen Description : Rounded, Symmetric SABRINA BARRIOS RN - 02/22/2016 14:45 CDT Genitourinary Patient Stated Symptoms : None Urinary Elimination : Diapers, Voiding, no difficulties Urine Color : Yellow Urine Description : Clear SABRINA BARRIOS RN - 02/22/2016 16:08 CDT Integumentary Integumentary Patient Stated Symptoms : None Skin Turgor : Elastic Skin Integrity : Intact Mucous Membrane Color : Almira Mucous Membrane Description : Moist Skin Color : Normal for ethnicity Skin Description : Normal Skin Temperature : Warm SABRINA BARRIOS RN - 02/22/2016 19:07 CDT SABRINA BARRIOS RN - 02/22/2016 19:07 CDT Skin Abnormality/Location Grid Location : Lower leg Other: all over body, arms, butt, legs Laterality : Right Abnormality : Excoriation, Flaking, Other: tight Other: psoriasis SABRINA BARRIOS RN - 02/22/2016 16:08 CDT SABRINA BARRIOS RN - 02/22/2016 16:08 CDT Incision/Wound Incision/Wound Care Grid Activity : Assessed Wound Type : Other: cellulitis Location : Lower leg Laterality : Right Description : Dry Drainage : None Wound Dressing : Open to air SABRINA BARRIOS RN - 02/22/2016 18:54 CDT Mando Sensory Perception Mando : No impairment Moisture Mando : Rarely moist Activity Mando : Walks frequently Mobility Mando : No limitations Nutrition Mando : Excellent Friction and Shear Mando : No apparent problem Mando Score : 23 SABRINA BARRIOS RN - 02/22/2016 19:07 CDT Musculoskeletal Musculoskeletal Patient Stated Symptoms : None SABRINA BARRIOS RN - 02/22/2016 19:07 CDT Peripheral IV [...] BARRIOS RN - 02/22/2016 19:07 CDT Source: [employer] Document Id: [id number] CDT!174 Miscellaneous - Eliseo Quezada, Pharm.D., R.Ph. [...] Plan completed by : ELISEO Fonseca - 02/22/2016 8:29 CDT ELISEO QUEZADA - [...] Plan completed by : ELISEO Hendrickson - 02/22/2016 8:29 CDT ELISEO QUEZADA - [...] darya lackey [facility]/pharmacy ELISEO QUEZADA - 02/22/2016 8:29 CDT ELISEO QUEZADA - 02/22/2016 8:29 CDT ELISEO QUEZADA Kennedy - 02/22/2016 8:29 CDT JATINBRIANAELISEO - 02/22/2016 8:29 CDT Date : 04/17/2014 CDT 04/24/2014 CDT 05/01/2014 LOBBYIST 05/15/2014 LOBBYIST Location of INR sample : Lab Lab [...] will trynoted dose called to mom Fabiola [phone] called to Fabiola/no changes Called to mother/Fabiola, not awareof any changes Recommend Recheck : One week One week Two weeks Two weeks Plan completed by : ELISEO WELCH - 02/22/2016 8:29 CDT ELISEO QUEZADA - 02/22/2016 8:29 CDT HUMPHREYBRIANAELISEO - 02/22/2016 8:29 CDT ELISEO QUEZADA - 02/22/2016 8:29 CDT Date : 06/03/2014 LOBBYIST 06/05/2014 LOBBYIST 06/10/2014 LOBBYIST 06/11/2014 LOBBYIST Location of INR sample : Lab Type [...] Called motherFabiola. Dorita will be staying in [place] 2wks post-surgery & have INR drawn there. [...] lovenox tomorrow AM as ordered. INR in [place] for next several weeks as pt will be recovering there. Recommend Recheck : Other: depending on Dr. Henriquez's preop. Other: 06/18 Other: 06/13/14 Plan completed by : ELISEO GARSIA - 02/22/2016 8:29 CDT ELISEO QUEZADA - 02/22/2016 8:29 CDT ELISEO QUEZADA - 02/22/2016 8:29 CDT ELISEO QUEZADA - 02/22/2016 8:29 CDT Date : 06/14/2014 LOBBYIST 06/14/2014 LOBBYIST 06/16/2014 LOBBYIST 06/23/2014 LOBBYIST Location of INR sample : Clinic Lab Lab Type of Sample : Venous Venous INR Result : 1.3 on 06/13 2.4 faxed from lab 2.0 Warfarin Dose : (pt took 2.5mg 06/13) 5mg Sat and 5mg Sun (06/14 and 06/15) 5mg Mon and 2.5mg all other days 5mg Mon and 2.5mg all other days Total Weekly Warfarin Dose : 20 20 Comment : [place] lab called with INR result from 06/13, reported they left a message with Dr. Henriquez and hadn't heard back, spoke with motherFabiola, and gave doses, continue Lovenox and repeat INR 06/16, message left with INR clinic in [place] to contact Please contact [place] lab on 06/16 for result and may call Fabiola at [phone] with instructions call to Fabiola/will stop Lovenox injections and take noted dose/pt has an appt here in 06/23 so will do lab appt here that day Called to Fabiola/ Dorita will be back at [facility] by next draw. will have done on . no changes to meds/diet. Recommend Recheck : Two days One week Two weeks Plan completed by : ELISEO Small LM - 02/22/2016 8:29 CDT ELISEO QUEZADA - 02/22/2016 8:29 CDT ELISEO QUEZADA - 02/22/2016 8:29 CDT ELISEO QUEZADA - 02/22/2016 8:29 CDT Date : 07/10/2014 LOBBYIST 07/17/2014 LOBBYIST 07/31/2014 LOBBYIST 09/11/2014 CDT Location of INR sample : [...] Plan completed by : ELISEO Singer - 02/22/2016 8:29 CDT ELISEO QUEZADA - 02/22/2016 8:29 CDT ELISEO QUEZADA - 02/22/2016 8:29 CDT ELISEO QUEZADA - 02/22/2016 8:29 CDT Date : 10/23/2014 [...] is she is 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 Caring in Place/no bleeding/consult with Quintin/Pharmacy and called Mom with orders Per Meredith Hernandez, no changes, has been drinking some Kiwi Juice, no bleeding/consult with Quintin/Pharmacy Called to mom /Fabiola, no changes, rev'd w/Antoniorlson/Pharmacy Recommend Recheck : Three weeks One week One week One week Plan completed by : ELISEO Valle 02/22/2016 8:29 CDT ELISEO QUEZADA - 02/22/2016 [...] : ELISEO DURHAM - 02/22/2016 8:29 CDT HUMPHREYBRIANAELISEO - 02/22/2016 8:29 CDT JATINBRIANAELISEO - 02/22/2016 8:29 CDT JATINBRIANAELISEO - 02/22/2016 8:29 CDT Date : 04/09/2015 CDT 05/07/2015 LOBBYIST 06/04/2015 LOBBYIST 07/02/2015 LOBBYIST Location of INR sample : Lab Lab [...] Plan completed by : darya LERMA JK HUMPHREYBRIANAELISEO - 02/22/2016 8:29 CDT ELISEO QUEZADA - 02/22/2016 8:29 CDT ELISEO QUEZADA - 02/22/2016 8:29 CDT ELISEO QUEZADA - 02/22/2016 8:29 CDT Date : 08/06/2015 LOBBYIST 09/17/2015 CDT 10/29/2015 CDT 11/12/2015 CDT Location [...] by : Justin Dunn Pharm.D. MAC, PharmD Eliseo Quezada PharmD. ELISEO QUEZADA - 02/22/2016 8:29 CDT ELISEO QUEZADA - 02/22/2016 8:29 CDT ELISEO QUEZADA - 02/22/2016 8:29 CDT ELISEO QUEZADA - 02/22/2016 8:29 CDT Source: [employer] Document Id: [id number] CDT!568 Miscellaneous - Ana Jonas - 02/21/2016 [...] Yes/No : No Nail Bed Color : Almira Capillary Refill : Less than 2 seconds [...] ANA JONAS RN - 02/22/2016 0:25 CDT Roundhill Coma Eye Opening Response Roundhill : Spontaneously Best Verbal Response [place] : Oriented Best Motor Response Kathleen : Obeys simple commands [place] Coma Score : 15 ANA JONAS - 02/22/2016 0:25 CDT Oral Assessment Lips : Smooth, pink, moist, intact Gingiva : Almira, smooth, moist, intact Tongue : Smooth, pink, moist, intact Teeth : Minimal debris, mostly between teeth Saliva : Thin, watery, plentiful ANA JONAS - 02/22/2016 0:25 CDT Psycho/Emotional Affect/Behavior : Calm, Cooperative, Appropriate Pain Symptoms : Yes ANA JONAS - 02/22/2016 0:25 CDT Pain Scale Pain Scale Verbal 0-10 : Open ANA JONAS - 02/22/2016 0:25 CDT Pain Pain Assessment [...] Symptoms : None ANA JONAS ANGELINE - 02/22/2016 0:25 CDT Integumentary Integumentary Patient Stated Symptoms : None Skin Turgor : Elastic Skin Integrity : Intact Mucous Membrane Color : Almira Mucous Membrane Description : Moist ANA JONAS ANGELINE - 02/22/2016 0:25 CDT Skin Abnormality/Location Grid Location : Lower leg Other: all over body, arms, butt, legs Laterality : Right Abnormality : Excoriation, Flaking, Other: tight Other: psoriasis ANA JONAS Carli - 02/22/2016 0:25 CDT TOBIAS ANA Carli - 02/22/2016 0:25 CDT Skin Color : Other: Psoriasis Skin Description : Dry, Blotchy Skin Temperature : Warm ANA JONAS Carli - 02/22/2016 0:25 CDT Incision/Wound Incision/Wound Care Grid Activity : Assessed Wound Type : Other: cellulitis Location : Lower leg Laterality : Right ANA JONAS J RN - 02/22/2016 0:25 CDT Mando Sensory Perception Mando : No impairment Moisture Mando : Occasionally moist Activity Mando : Walks occasionally Mobility Mando : Slightly limited Nutrition Mando : Excellent Friction and Shear Mando : No apparent problem Mando Score : 20 ANA JONAS RN - 02/22/2016 0:25 CDT Musculoskeletal Musculoskeletal Patient Stated Symptoms : Weakness Activity Tolerance : Minimal distress ANA JONAS RN - 02/22/2016 0:25 CDT Musculoskeletal Joint Asmt Ultragrid Joint Assessment #1 Location : Ankle, right Assessment : Edema present, Heat present, Tender to palpation Range of Motion : Limited motion, active ANA JONAS RN - 02/22/2016 0:25 CDT Peripheral IV Peripheral [...] JONAS RN - 02/22/2016 0:25 CDT Source: [employer] Document Id: [id number] CDT!138 Miscellaneous - Eliane Benjamin C.N.A. - 02/21/2016 4:00 PM CDT Adult [...] BENJAMIN CNA - 02/21/2016 16:28 CDT Source: [employer] Document Id: [id number] CDT!11 Miscellaneous - Eliane Benjamin, C.N.A. - 02/21/2016 2:18 PM CDT Adult [...] BENJAMIN CNA - 02/21/2016 14:18 CDT Source: [employer] Document Id: [id number] CDT!8 Miscellaneous - Arash Fajardo M.SMichael, M.S.N., R.N. - 02/21/2016 11:29 AM CDT [...] FAJARDO RN - 02/21/2016 12:24 CDT Source: [employer] Document Id: [id number] CDT!46 Kolby - Arash Fajardo M.S., M.S.N., R.N. - [...] FAJARDO RN - 02/21/2016 11:26 CDT Source: [employer] Document Id: [id number] CDT!11 Kolby - Eliane Benjamin C.N.AMichael - 02/21/2016 9:56 AM CDT Adult Activities [...] BENJAMIN CNA - 02/21/2016 9:56 CDT [facility] Document Id: [id number] CDT!8 Miscellaneous - Romeo Aggarwal Pharm.DMichael, R.Ph. - 02/21/2016 9:35 AM CDT Anticoagulation [...] Two weeks Plan completed by : ROMEO Linares.Rohit, R.Ph. - 02/21/2016 9:35 ROMEO LEA Pharm.Rohit, R.Ph. - 02/21/2016 9:35 ROMEO LEA PharmJaime, R.Ph. - 02/21/2016 9:35 ROMEO LEA PharmJaime, R.Ph. - 02/21/2016 9:35 CDT Date : [...] a long time, no bleeding now left [facility] [place] Fabiola,call if changes Recommend Recheck : Other: 5 weeks Other: 5 weeks Other: 03/10/2014 Other: 03/20/14 Plan completed by : ROMEO Arriola Pharm.DMichael, R.Ph. - 02/21/2016 9:35 ROMEO LEA Pharm.DMichael, R.Ph. - 02/21/2016 9:35 ROMEO LEA PharmJaime, R.Ph. - 02/21/2016 9:35 ROMEO LEA Pharm.Rohit, R.Ph. - 02/21/2016 9:35 CDT Date [...] : darya lackey LM /pharmacy ROMEO AGGARWAL Pharm.Valentina., R.Ph. - 02/21/2016 9:35 CDT ROMEO AGGARWAL Pharm.Valentina., R.Ph. - 02/21/2016 9:35 CDT ROMEO AGGARWAL Pharm.D., R.Ph. - 02/21/2016 9:35 CDT ROMEO AGGARWAL Pharm.Valentina., R.Ph. - 02/21/2016 9:35 CDT Date : 04/17/2014 CDT 04/24/2014 CDT 05/01/2014 LOBBYIST 05/15/2014 LOBBYIST Location of INR sample : Lab Lab [...] will trynoted dose called to mom Fabiola [phone] called to Fabiola/no changes Called to mother/Fabiola, not awareof any changes Recommend Recheck : One week One week Two weeks Two weeks Plan completed by : ROMEO RODRÍGUEZ Pharm.D., R.Ph. - 02/21/2016 9:35 CDT ROMEO AGGARWAL Pharm.D., R.Ph. - 02/21/2016 9:35 CDT ROMEO AGGARWAL Pharm.D., R.Ph. - 02/21/2016 9:35 CDT ROMEO AGGARWAL Pharm.D., R.Ph. - 02/21/2016 9:35 CDT Date : 06/03/2014 LOBBYIST 06/05/2014 LOBBYIST 06/10/2014 LOBBYIST 06/11/2014 LOBBYIST Location of INR sample : Lab Type [...] Called motherFabiola. Dorita will be staying in [place] 2wks post-surgery & have INR drawn there. [...] lovenox tomorrow AM as ordered. INR in [place] for next several weeks as pt will be recovering there. Recommend Recheck : Other: depending on Dr. Henriquez's preop. Other: 06/18 Other: 06/13/14 Plan completed by : JStoney JK JM ROMEO DIETRICH Pharm.D., R.Ph. - 02/21/2016 9:35 CDT ROMEO AGGARWAL.Valentina., R.Ph. - 02/21/2016 9:35 CDT ROMEO AGGARWAL.Rohit, R.Ph. - 02/21/2016 9:35 ROMEO LEA.Valentina., R.Ph. - 02/21/2016 9:35 CDT Date : 06/14/2014 LOBBYIST 06/14/2014 LOBBYIST 06/16/2014 LOBBYIST 06/23/2014 LOBBYIST Location of INR sample : Clinic Lab Lab Type of Sample : Venous Venous INR Result : 1.3 on 06/13 2.4 faxed from lab 2.0 Warfarin Dose : (pt took 2.5mg 06/13) 5mg Sat and 5mg Sun (06/14 and 06/15) 5mg Mon and 2.5mg all other days 5mg Mon and 2.5mg all other days Total Weekly Warfarin Dose : 20 20 Comment : [place] lab called with INR result from 06/13, reported they left a message with Dr. Henriquez and hadn't heard back, spoke with mother, Fabiola, and gave doses, continue Lovenox and repeat INR 06/16, message left with INR clinic in to contact CF Please contact [employer] lab on 06/16 for result and may call Fabiola at [phone] with instructions call to Fabiola/will stop Lovenox injections and take noted dose/pt has an appt here in 06/23 so will do lab appt here that day Called to Fabiola/ Dorita will be back at [facility] by next draw. will have done on . no changes to meds/diet. Recommend Recheck : Two days One week Two weeks Plan completed by : ROMEO Avila LM, Pharm.D., R.Ph. - 02/21/2016 9:35 PATRICIAT ROMEO AGGARWAL.Rohit, R.Ph. - 02/21/2016 9:35 ROMEO LEA Pharm.Rohit, R.Ph. - 02/21/2016 9:35 ROMEO LEA A PharmJaime, R.Ph. - 02/21/2016 9:35 CDT Date : 07/10/2014 LOBBYIST 07/17/2014 LOBBYIST 07/31/2014 LOBBYIST 09/11/2014 CDT Location of INR sample : [...] weeks Two weeks Plan completed by : RMOEO Ramires PharmJaime, R.Ph. - 02/21/2016 9:35 CDT ROMEO AGGARWAL Pharm.Valentina., R.Ph. - 02/21/2016 9:35 PATRICIAT ROMEO AGGARWAL [...] Pharm.D., R.Ph. - 02/21/2016 9:35 CDT ROMEO AGGARWAL.Rohit, R.Ph. - 02/21/2016 9:35 CDT Date : [...] Called to mom /Fabiola, no changes, rev'd w/Paul/Pharmacy Recommend Recheck : Three weeks One week One week One week Plan completed by : ROMEO Kaur Pharm.DMichael, R.Ph. - 02/21/2016 9:35 CDT ROMEO AGGARWAL.Rohit, R.Ph. - 02/21/2016 9:35 CDT ROMEO AGGARWAL [...] Plan completed by : darya PRECIADO JM ROMEO MAXWELL Pharm.D., R.Ph. - 02/21/2016 9:35 CDT ROMEO [...] Three weeks Plan completed by : ROMEO JERNIGAN.Rohit, R.Ph. - 02/21/2016 9:35 CDT ROMEO AGGARWAL Pharm.D., R.Ph. - 02/21/2016 9:35 PATRICIAT ROMEO AGGARWAL Pharm.D., R.Ph. - 02/21/2016 9:35 CDT ROMEO AGGARWAL.Rohit, R.Ph. - 02/21/2016 9:35 CDT Date : 04/09/2015 CDT 05/07/2015 LOBBYIST 06/04/2015 LOBBYIST 07/02/2015 LOBBYIST Location of INR sample : Lab Lab [...] weeks Plan completed by : ROMEO Burger Pharm.Valentina., R.Ph. - 02/21/2016 9:35 CDT ROMEO AGGARWAL Pharm.D., R.Ph. - 02/21/2016 9:35 PATRICIAT ROMEO AGGARWAL Pharm.Rohit, R.Ph. - 02/21/2016 9:35 ROMEO LEA Pharm.oRhit, R.Ph. - 02/21/2016 9:35 CDT Date : 08/06/2015 LOBBYIST 09/17/2015 CDT 10/29/2015 CDT 11/12/2015 CDT Location [...] called to Mom/Fabiola, no changes Called to Mom/Fabiloa, no changes, will try dec Recommend Recheck : Six weeks Six weeks Two weeks One week Plan completed by : ROMEO Brown Pharm.Rohit, R.Ph. - 02/21/2016 9:35 CDT ROMEO AGGARWAL.Valentina., R.Ph. - 02/21/2016 9:35 PATRICIAT ROMEO AGGARWAL Pharm.Rohit, R.Ph. - 02/21/2016 9:35 [...] R.Ph. - 02/21/2016 9:35 CDT ROMEO AGGARWAL PharmMichaelDMichael, R.Ph. - 02/21/2016 9:35 CDT ROMEO AGGARWAL [...] : Tyshawn Brizuela, Pharm.DMichael Brizuela PharmJaime ASTUDILLO, ROMEO De Pharm.DMichael, R.Ph. - 02/21/2016 9:35 CDT ROMEO AGGARWAL Pharm.Rohit, R.Ph. - 02/21/2016 9:35 CDT ROMEO AGGARWAL Pharm.DMichael, R.Ph. - 02/21/2016 9:35 CDT Source: [facility] [employer] Document Id: [id number] CDT!559 Miscellaneous - Arash Fajardo MMichaelS., M.S.N., R.N. - 02/21/2016 9:30 AM CDT Adult [...] Yes/No : No Nail Bed Color : Almira Capillary Refill : Less than 2 seconds Edema Assessment : Yes Pacer : No ARASH FAJARDO - 02/21/2016 11:17 CDT Radial Pulse, Left : 2+ Normal Radial Pulse, Right : 2+ Normal Dorsalis Pedis Pulse, Left : 2+ Normal Dorsalis Pedis Pulse, Right : 2+ Normal ARASH FAJARDO Iris - 02/21/2016 11:17 CDT Skin Color : Normal for ethnicity Skin Description : Dry Skin Temperature : Warm Activity Tolerance : Without distress EVASALTY ARASH Iris - 02/21/2016 11:17 CDT Edema Details Edema Detailed Grid Pretibial Edema Ankle Edema Pedal Edema Right : 2+ mild/4mm 2+ mild/4mm 2+ mild/4mm WALLYREEVES ARASH Iris - 02/21/2016 11:17 CDT WALLYREEVES ARASH Iris - 02/21/2016 11:17 CDT CONNIE ARASH Iris - 02/21/2016 11:17 CDT Neurological Neuro Patient Stated Symptoms : None Orientation : Oriented x 3 Level of Consciousness : Alert Gait : Steady, Asymmetrical AMYELMOHIRALARASH POND Iris - 02/21/2016 11:17 CDT Kathleen Coma Eye Opening Response Roundhill : Spontaneously Best Verbal Response [place]hill : Oriented Best Motor Response Roundhill : Obeys simple commands Kathleen Coma Score : 15 EVAARASH POND Iris - 02/21/2016 11:17 CDT Psycho/Emotional Affect/Behavior : Calm, Cooperative, Appropriate Pain Symptoms : Yes CONNIE ARASHOWEN Simmons RN - 02/21/2016 11:17 CDT Coping Grid Stable mood with appropriate affect : Yes ARASH FAJARDO RN - 02/21/2016 11:17 CDT Safety Grid Vision, Hearing, Mobility Adequate to Meet Safety Needs : Yes CONNIE ARASHOWEN Simmons RN - 02/21/2016 11:17 CDT Pain Scale Pain Scale Verbal 0-10 : Open ARASH FAJARDO RN - 02/21/2016 11:17 CDT Pain Pain Assessment Grid Pain 1 Location : Foot Laterality : Right Intensity : 7 Interventions : Medications, Rest AMYGORAN ARASH Simmons RN - 02/21/2016 11:17 CDT Gastrointestinal GI Patient Stated Symptoms : Diarrhea Abdomen Palpation : Non-Tender, Soft Bowel Sounds All Quadrants : Hyperactive Passing Flatus : Yes AMYGORANARASH RN - 02/21/2016 11:17 CDT Nutrition Appetite : Good Eating Difficulties : None Feeding Ability : Complete independence AMYGORANARASH RN - 02/21/2016 11:17 CDT Genitourinary Patient Stated Symptoms : None Urinary Elimination : Voiding, no difficulties AMYELMOARASH NEVES RN - 02/21/2016 11:17 CDT Integumentary Integumentary Patient Stated Symptoms : None Skin Turgor : Elastic Skin Integrity : Intact Mucous Membrane Color : Almira Mucous Membrane Description : Moist ARASH FAJARDO [...] Description : Dry, Tender Color : Red, Almira Drainage : None Wound Dressing : Open [...] FAJARDO RN - 02/21/2016 11:17 CDT Source: [employer] Document Id: [id number] CDT!127 Miscellaneous - Conversion, Historical Provider Ser - 03/28/2013 12:00 AM CDT Advance Directive Advance Directive Entered On: 03/23/2016 15:26 CDT Performed On: 03/28/2013 0:00 CDT by MARCELA DINH Advance Directive Advanced Directives : Yes Advance Directive Date : 03/28/2013 Advance Directive Type : Health care power of employee benefits attorney Activation of Health Care POA : No Advance Directive Location : Scanned into EMR MARCELA DINH - 03/23/2016 15:24 CDT Source: [employer] Document Id: [id number] CDT!7 documented in this encounter Plan of Treatment Upcoming Encounters Date Type Specialty Care Team Description 06/22/2022 Appointment Laboratory Medicine Rusty Vee M.D. [address] [place] [phone] 06/22/2022 Diagnostic Pulmonary Medicine Rusty Vee M.D. [address] [place] [phone] 06/22/2022 Diagnostic Pulmonary Medicine Rusty Vee M.D. [address] [place] [phone] 06/22/2022 Appointment Radiology Rusty Vee M.D. [address] [place] [address] 06/23/2022 Clinical Communication Admitting/Central Scheduling 06/28/2022 Appointment Pulmonary Medicine Rusty Vee M.D. [address] [place] [phone] 06/28/2022 Appointment Pulmonary Medicine Rusty Vee M.D. [address] [place] [phone] documented as of this encounter Procedures Procedure [...] Time) with INR (02/27/2016 6:28 AM CDT) [facility] gist Method Time Signature Prothrombin 22.8 [...] Time) with INR (02/26/2016 6:51 AM CDT) [facility] gist Method Time Signature Prothrombin 22.3 (H) 8.7 [...] Time) with INR (02/25/2016 12:30 PM CDT) [facility] gist Method Time Signature Prothrombin 23.8 (H) 8.7 [...] Time) with INR (02/24/2016 7:03 AM CDT) [facility] gist Method Time Signature Prothrombin 33.1 (H) 8.7 - 11.8 POWERCHART Time, P SECONDS INR 2.85 (H) 0.90 - 1.16 POWERCHART Specimen (Source) Anatomical Collection Method Collection Time Re ceived Time Location / / Volume Laterality Blood 02/24/2016 7:03 AM CDT Martha Lopez M.D. LAB BLOOD ADD-ON Performing Organization Address City/[facility]/ZIP Code Phon e Number POWERCHART (ABNORMAL) PT (Prothrombin Time) with INR (02/23/2016 6:45 AM CDT) [facility] gist Method Time Signature Prothrombin 27.8 (H) 8.7 - 11.8 POWERCHART Time, P SECONDS INR 2.45 (H) 0.90 - 1.16 POWERCHART Specimen (Source) Anatomical Collection Method Collection Time Re ceived Time Location / / Volume Laterality Blood 02/23/2016 6:45 AM CDT Martha Lopez M.D. LAB BLOOD ADD-ON Performing Organization Address City/[facility]/ZIP Code Phon e Number POWERCHART (ABNORMAL) PT (Prothrombin Time) with INR (02/22/2016 6:49 AM CDT) [facility] gist Method Time Signature Prothrombin 27.9 [...] CBC without Differential (02/22/2016 6:49 AM CDT) [facility] gist Method Time Signature Leukocytes 4.7 3.4 - 10.5 POWERCHART X109L Erythrocytes 3.42 (L) 3.90 - POWERCHART 5.03 [id number] Hemoglobin 11.2 (L) 12.0 - POWERCHART 15.5 [...] (Basic Metabolic Panel) (02/22/2016 6:49 AM CDT) [facility] gist Method Time Signature Sodium, S [...] MMOLL HXeGFR (MDRD) 54 (L) >=60 POWERCHART [id number] eGFR >60 >=60 POWERCHART Black/ [id number] Congolese Glucose 100 70 - 139 POWERCHART MGDL Specimen (Source) Anatomical Collection Method Collection Time Re ceived Time Location / / Volume Laterality Blood 02/22/2016 6:49 AM CDT Martha Lopez M.D. LAB BLOOD ADD-ON Performing Organization Address City/State/ZIP Code Phon e Number POWERCHART documented in this encounter Visit Diagnoses Not on filedocumented in this encounter
--- OUTSIDE RECORDS SUMMARY | 2022-05-25 21:07 | XMS_ITS | Encounter Summary ---
:1975 Author Organization [facility] Address [address] [place] [address] Care Team Providers Name Role Phone Unavailable Primary Care Provider Unavailable Encounter Details Date Type Department Care Team Description 12/31/2015 Hospital Encounter HX [facility] Marsha Henriquez M.D. [address] [place], [place] [address] (Wo rk) Social History [...] at Date Recorded Female 05/03/2022 7:07 PM TRUCK DRIVER'S OFFSIDER documented as of this encounter Last Filed [...] Notes Miscellaneous - Khadar Banda R.N. - 12/31/2015 10:03 AM CDT Anticoagulation Patient [...] completed by : KHADAR Manning RN - 12/31/2015 10:03 CDT KHADAR BANDA [...] lackey LM /pharmacy KHADAR BANDA RN - 12/31/2015 10:03 CDT KHADAR BANDA RN - 12/31/2015 10:03 CDT KHADAR BANDA RN - 12/31/2015 10:03 CDT KHADAR BANDA RN - 12/31/2015 10:03 CDT Date : 04/17/2014 CDT 04/24/2014 CDT 05/01/2014 TRUCK DRIVER'S OFFSIDER 05/15/2014 TRUCK DRIVER'S OFFSIDER Location of INR sample : Lab Lab [...] will trynoted dose called to mom Fabiola [phone] called to Fabiola/no changes Called to mother/Fabiola, not awareof any changes Recommend Recheck : One week One week Two weeks Two weeks Plan completed by : KHADAR HACKETT RN - 12/31/2015 10:03 CDT KHADAR BANDA RN - 12/31/2015 10:03 CDT KHADAR BANDA RN - 12/31/2015 10:03 CDT KHADAR BANDA RN - 12/31/2015 10:03 CDT Date : 06/03/2014 TRUCK DRIVER'S OFFSIDER 06/05/2014 TRUCK DRIVER'S OFFSIDER 06/10/2014 TRUCK DRIVER'S OFFSIDER 06/11/2014 TRUCK DRIVER'S OFFSIDER Location of INR sample : Lab Type [...] Called motherFabiola. Hue will be staying in [place] 2wks post-surgery & have INR drawn there. [...] lovenox tomorrow AM as ordered. INR in [place] for next several weeks as pt will be recovering there. Recommend Recheck : Other: depending on Dr. Henriquez's preop. Other: 06/18 Other: 06/13/14 Plan completed by : KHADAR SANDERS RN - 12/31/2015 10:03 CDT KHADAR BANDA RN - 12/31/2015 10:03 PATRICIAT KHADAR BANDA RN - 12/31/2015 10:03 PATRICIAT KHADAR BANDA RN - 12/31/2015 10:03 CDT Date : 06/14/2014 TRUCK DRIVER'S OFFSIDER 06/14/2014 TRUCK DRIVER'S OFFSIDER 06/16/2014 TRUCK DRIVER'S OFFSIDER 06/23/2014 TRUCK DRIVER'S OFFSIDER Location of INR sample : Clinic Lab Lab Type of Sample : Venous Venous INR Result : 1.3 on 06/13 2.4 faxed from lab 2.0 Warfarin Dose : (pt took 2.5mg 06/13) 5mg Sat and 5mg Sun (06/14 and 06/15) 5mg Mon and 2.5mg all other days 5mg Mon and 2.5mg all other days Total Weekly Warfarin Dose : 20 20 Comment : [place] lab called with INR result from 06/13, reported they left a message with Dr. Henriquez and hadn't heard back, spoke with mother, Fabiola, and gave doses, continue Lovenox and repeat INR 06/16, message left with INR clinic in [place] to contact CF Please contact [facility] lab on 06/16 for result and may call Fabiola at [phone] with instructions call to Fabiola/will stop Lovenox injections and take noted dose/pt has an appt here in [place] 06/23 so will do lab appt here that day Called to Fabiola/ Hue will be back at [facility] by next draw. will have done on . no changes to meds/diet. Recommend Recheck : Two days One week Two weeks Plan completed by : KHADAR Mattson LM, RN - 12/31/2015 10:03 KHADAR HILL RN - 12/31/2015 10:03 KHADAR HILL RN - 12/31/2015 10:03 KHADAR HILL RN - 12/31/2015 10:03 CDT Date : 07/10/2014 TRUCK DRIVER'S OFFSIDER 07/17/2014 TRUCK DRIVER'S OFFSIDER 07/31/2014 TRUCK DRIVER'S OFFSIDER 09/11/2014 CDT Location of INR sample : [...] : KHADAR Dumont RN - 12/31/2015 10:03 KHADAR HILL RN - 12/31/2015 10:03 KHADAR HILL RN - 12/31/2015 10:03 KHADAR HILL RN - 12/31/2015 10:03 CDT Date : [...] 10:03 CDT Date : 04/09/2015 CDT 05/07/2015 TRUCK DRIVER'S OFFSIDER 06/04/2015 TRUCK DRIVER'S OFFSIDER 07/02/2015 TRUCK DRIVER'S OFFSIDER Location of INR sample : Lab Lab [...] completed by : KHADAR Dowell RN - 12/31/2015 10:03 CDT KHADAR BANDA RN - 12/31/2015 10:03 CDT KHADAR BANDA RN - 12/31/2015 10:03 CDT KHADAR BANDA RN - 12/31/2015 10:03 CDT Date : 08/06/2015 TRUCK DRIVER'S OFFSIDER 09/17/2015 CDT 10/29/2015 CDT 11/12/2015 CDT Location [...] completed by : KHADAR Rodriguez RN - 12/31/2015 10:03 CDT KHADAR BANDA [...] BANDA RN - 12/31/2015 10:03 CDT Source: [facility] [employer] Document Id: [id number] CDT!536 Miscellaneous - Khadar Banda R.N. - 12/31/2015 10:00 AM CDT Results Notification From: KHADAR BANDA RN ( Anticoagulation Nurse) To: Anticoagulation Nurse; Sent: 12/31/2015 10:00:57 CDT Show up: 12/31/2015 10:01:00 CDT Subject: Results Notification Results: Date Result Name Value Ref Range 12/31/2015 08:00 PT 35.5 second(s) (8.7 - 11.8) 12/31/2015 08:00 INR 3.1 INR (0.9 - 1.1) Source: [facility] [employer] Document Id: [id number] Electronically signed by [facility] Vice President Of Instruction [id number] at 11/19/2016 10:33 PM CDT documented in this encounter Plan of Treatment Upcoming Encounters Date Type Specialty Care Team Description 06/22/2022 Appointment Laboratory Medicine Rusty Vee M.D. [address] [place] [phone] 06/22/2022 Diagnostic Pulmonary Medicine Rusty Vee M.D. [address] [place] [phone] 06/22/2022 Diagnostic Pulmonary Medicine Rusty Vee M.D. [address] [place] [phone] 06/22/2022 Appointment Radiology Rusty Vee M.D. [address] [place] [phone] 06/23/2022 Clinical Communication Admitting/Central Scheduling 06/28/2022 Appointment Pulmonary Medicine Rusty Vee M.D. [address] [place] [phone] 06/28/2022 Appointment Pulmonary Medicine Rusty Vee M.D. [address] [place] [phone] documented as of this encounter Procedures Procedure Name Priority Date/Time Associated Comments Diagnosis PROTHROMBIN TIME Routine 12/31/2015 8:00 AM Resul ts for this (PT), P CDT procedure are i n the results section. documented in this encounter Results (ABNORMAL) PT (Prothrombin Time) with INR (12/31/2015 8:00 AM CDT) [facility] Method Time Signature Prothrombin 35.5 (H) 8.7 [...]
--- OUTSIDE RECORDS SUMMARY | 2022-05-25 21:07 | XMS_ITS | Encounter Summary ---
:1975 Author Organization [facility] Address [address] [place] [address] Care Team Providers Name Role Phone Unavailable Primary Care Provider Unavailable Encounter Details Date Type Department Care Team Description 02/14/2016 Hospital Encounter HX NO MAPPING Vielka Zamudio P.A.-C., M.S. [address] [place], [place] [phone] (Wo rk) Social History [...] at Date Recorded Female 05/03/2022 7:07 PM END POLISHER documented as of this encounter Last Filed [...] 02/14/2016 2:58 PM CDT ED Depart Summary [facility] Emergency Department Clinical Discharge Summary PERSON INFORMATION Name DORITA SHEFFIELD Age 41 Years 1975 12:00 AM Sex Female Language Nigerien PCP TASHA HENRIQUEZ MD Marital Status Single Visit Id Visit Reason UC - Leg Pain or Swelling; leg pain Specialty [facility] Type [facility] Outpatient Med Service Urgent Care Referred by Track Group [facility] ED Discharge 02/14/2016 2:58 PM Tracking Id [id number] Checkout 02/14/2016 2:58 PM Checkin 02/14/2016 1:29 PM Acuity 4 -Less Urgent Dispo Type * Discharged to Home or Self Care Arrival 02/14/2016 1:29 PM Reg Status Complete LOS 000 01:29 Address: [address] [place] [address] [facility] [phone] Comment: PROVIDER INFORMATION Provider Role Provider Contact Time JEFF POWER LPN ED Nurse 02/14/16 13:43 VIELKA ZAMUDIO PA-C ED Provider 02/14/16 13:54 DIAGNOSIS Cellulitis Leg R Comment: PATIENT EDUCATION INFORMATION Instructions: CELLULITIS Follow up: With: Address: When: Return to Urgent Care Within As Needed Source: [facility] POWERCHART Document Id: [id number] Wali Becerra L.P.N. - 02/14/2016 2:58 PM CDT ED Discharge Instructions [facility] [address] [place] [address] Name: DORITA SHEFFIELD Date of : 1975 12:00 AM Visit Date: 02/14/2016 1:29 PM [facility] Number: [phone] Address: [address] [facility] [id number] Primary Care Provider: TASHA HENRIQUEZ MD IMPORTANT: [facility] in [place] would like to thank you for allowing us to assist you with your healthcare needs. The following includes patient education materials and information regarding your injury/illness. Diagnosis: Cellulitis Leg R Follow-Up Instructions: With: Address: When: Return to Urgent Care Within As Needed Your Upcoming Appointments: Date Time Location Provider 02/25/2016 08:15 [facility] SUPERVISOR [employer]LE [employer] Sujit TSANG, Lizzy Benavides Patient Education Materials: [...] rectal, after two days on antibiotics ?? [phone] [facility], [address] [place] [address], [place] [address]. All rights reserved. This information is not [...] you dont have one. Go to [email or web address] and click on Create Your Account. Then, follow the directions to complete the online form. Youll be asked for your [facility] number which you can find at the [...] by the INR Clinic as of 12/30/2015 [facility] [place]) See Instructions Rx mouth [...] Date Time Provider Signature Date Time Source: [facility] POWERCHART Document Id: [id number] documented in this encounter Medications at Time of Discharge Medication Sig Dispensed Refills Start Date End Date multivitamin tablet Take 2 tablets by 0 3 mouth daily. FLUORIDE, SODIUM, Apply 1 application 0 3 12/31/2019 DENTAL topically 2 (two) times a day. documented as of this encounter Progress Notes Vielka Zamudio P.A.-C. - 02/14/2016 1:29 PM CDT [id number] CHIEF COMPLAINT/REASON FOR VISIT Increased right lower [...] ZAMUDIO PA-C On: 02/14/2016 06:58 PM Source: [facility] MHSDOLBEYNONRADSYS Document Id: [id number] documented in this encounter H&P Notes Jeff Power L.P.N. - 02/14/2016 1:44 PM CDT Urgent Care Intake Urgent Care Intake Entered On: 02/14/2016 13:48 CDT Performed On: 02/14/2016 13:44 CDT by JEFF POWER LPN Intake Chief Complaint : Right [...] Information Given By : Patient Languages : Nigerien Is Patient Female and 13-50 no hysterectomy [...] Risk Factors by History Adult : None JEFF POWER LPN - 02/14/2016 13:44 CDT Functional Current Daily Living Assistance : None JEFF POWER LPN - 02/14/2016 13:44 CDT Psychosocial Domestic Abuse Concerns : None Behavioral Health Screen/Safety Assmt : No Druze Preference : No qualifying data available. JEFF POWER SHELIA - 02/14/2016 13:44 CDT Advance Directive Advanced Directives : No Advance Directive Additional Information : No JEFF POWER SHELIA - 02/14/2016 13:44 CDT Educ Needs Learning Style Preference Adult Grid Patient : None Family : None JEFF POWER SHELIA - 02/14/2016 13:44 CDT Source: [facility] [employer] Document Id: [id number] CDT!54 documented in this encounter ED Notes Wali Becerra L.P.N. - 02/14/2016 2:58 PM CDT ED Disposition Summary ED Disposition Summary Entered On: 02/14/2016 14:58 CDT Performed On: 02/14/2016 14:58 CDT by WALI BECERRA LPN ED Disposition Summary Printed Discharge Instructions Given to Patient : Yes WALI BECERRA LPN - 02/14/2016 14:58 CDT Source: [facility] [employer] Document Id: [id number] CDT!3 Varun Krishnamurthy R.N. - 02/14/2016 1:30 PM CDT ED Triage Assessment Document Has Been Updated ED Triage Assessment Entered On: 02/14/2016 13:31 CDT Performed On: 02/14/2016 13:30 CDT by VARUN KRISHNAMURTHY RN Reason For Visit (As Of: 02/14/2016 13:31:31 CDT) Problems(Active) Atrioventricular canal (SNOMED CT :989656745 ) Name of Problem: Atrioventricular canal ; Onset Date:03/26/2013 ; Recorder: TOOTIE LOPEZ LPN; Confirmation: Confirmed ; Classification: Nursing ; Code: [id number] ; Contributor System: [employer] ; Last Updated: 04/05/2013 10:22 CDT ; [...] Medical ; Code: 574.20 ; Contributor System: [employer] ; Last Updated: 05/29/2014 11:11 END POLISHER ; 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: Active ; Responsible Provider: BELLA NULL MD; Vocabulary: ICD-9-CM Impaired Fasting Glucose (ICD-9-CM :790.21 ) Name of Problem: Impaired Fasting Glucose ; Onset Date:07/22/2010 ; Confirmation: Confirmed ; Classification: Medical ; Code: 790.21 ; Contributor System: [employer] ; Last Updated: 06/06/2014 9:13 END POLISHER ; 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: Active ; Vocabulary: [...] Medical ; Code: 272.2 ; Contributor System: [employer]; Last Updated: 06/06/2014 9:13 END POLISHER ; 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: Active ; Vocabulary: [...] Merly Solomon ; Last Updated: 06/06/2014 9:13 END POLISHER ; 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: Active ; Vocabulary: [...] Nursing ; Code: 696.1 ; Contributor System: [employer] ; Last Updated: 04/05/2013 10:24 CDT ; [...] Nursing ; Code: 424.2 ; Contributor System: [employer] ; Last Updated: 04/05/2013 10:25 CDT ; [...] PNED ; Probability: 0 ; Diagnosis Code: [id number] Triage Chief Complaint Description : Right lower leg pain and swelling. HX of DVT. Valentina bain was negative yesterday. She is having increased swelling, pain, and warmth. Information Given By : Patient Present in Room During Exam/Procedure : Father Mode of Arrival ED : Private vehicle, Ambulatory Track : Medical Languages : Nigerien Patient Informed of Triage Location : Urgent [...] : 4 -Less Urgent Tracking Group : [facility] ED VARUN KRISHNAMURTHY RN - 02/14/2016 13:30 CDT Source: [employer] Document Id: [id number] CDT!19 documented in this encounter Plan of Treatment Upcoming Encounters Date Type Specialty Care Team Description 06/22/2022 Appointment Laboratory Medicine Rusty Vee M.D. [address] [place] [phone] 06/22/2022 Diagnostic Pulmonary Medicine Rusty Vee M.D. [address] [place] [phone] 06/22/2022 Diagnostic Pulmonary Medicine Rusty Vee M.D. [address] [place] [phone] 06/22/2022 Appointment Radiology Rusty Vee M.D. [address] [place] [address] 06/23/2022 Clinical Communication Admitting/Central Scheduling 06/28/2022 Appointment Pulmonary Medicine Rusty Vee M.D. [address] [place] [address] 06/28/2022 Appointment Pulmonary Medicine Rusty Vee M.D. [address] [place] [phone] documented as of this encounter Visit Diagnoses Not on filedocumented in this encounter
--- OUTSIDE RECORDS SUMMARY | 2022-05-25 21:07 | XMS_ITS | Encounter Summary ---
:1975 Author Organization [facility] Address [address] [place] [address] Care Team Providers Name Role Phone Unavailable Primary Care Provider Unavailable Encounter Details Date Type Department Care Team Description 05/07/2015 Hospital Encounter HX [facility] Marsha Henriquez M.D. [address] [place], [place] [address] (Wo rk) Social History [...] at Date Recorded Female 05/03/2022 7:07 PM UPHOLSTERY CLEANER documented as of this encounter Last Filed Vital Signs Vital Sign Reading Time Taken Comments Blood Pressure - - Pulse - - Temperature - - Respiratory Rate - - Oxygen Saturation - - Inhaled Oxygen Concentration - - Weight - - Height 147 cm (4' 9.87) 05/07/2015 10:29 AM UPHOLSTERY CLEANER Body Mass Index - - documented in this encounter Medications at Time of Discharge Medication Sig Dispensed Refills Start Date End Date multivitamin tablet Take 2 tablets by 0 3 mouth daily. FLUORIDE, SODIUM, Apply 1 application 0 3 12/31/2019 DENTAL topically 2 (two) times a day. documented as of this encounter Miscellaneous Notes Miscellaneous - Khadar Banda R.N. - 05/07/2015 11:06 AM CST Anticoagulation Patient Intake Anticoagulation Patient Intake Entered On: 05/07/2015 11:10 UPHOLSTERY CLEANER Performed On: 05/07/2015 11:06 UPHOLSTERY CLEANER by KHADAR BANDA RN Plan INR goal range : 2.0 - 3.0 Duration of Therapy : Lifelong Tablet Size : 3 mg, 5 mg KHADAR BANDA RN - 05/07/2015 11:06 UPHOLSTERY CLEANER Anticoagulation Management Plan Grid Date : 09/05/2013 [...] JM KHADAR Mae RN - 05/07/2015 11:06 UPHOLSTERY CLEANER KHADAR BANDA RN - 05/07/2015 11:06 UPHOLSTERY CLEANER KHADAR BANDA RN - 05/07/2015 11:06 UPHOLSTERY CLEANER KHADAR BANDA RN - 05/07/2015 11:06 UPHOLSTERY CLEANER Date : 12/26/2013 CDT 01/30/2014 CDT 03/06/2014 [...] : KHADAR Cho RN - 05/07/2015 11:06 UPHOLSTERY CLEANER KHADAR BANDA RN - 05/07/2015 11:06 UPHOLSTERY CLEANER KHADAR BANDA RN - 05/07/2015 11:06 UPHOLSTERY CLEANER KHADAR BANDA RN - 05/07/2015 11:06 UPHOLSTERY CLEANER Date : 03/20/2014 CDT 03/27/2014 CDT 04/10/2014 [...] lackey LM /pharmacy KHADAR BANDA RN - 05/07/2015 11:06 UPHOLSTERY CLEANER KHADAR BANDA RN - 05/07/2015 11:06 UPHOLSTERY CLEANER KHADAR BANDA RN - 05/07/2015 11:06 UPHOLSTERY CLEANER KHADAR BANDA RN - 05/07/2015 11:06 UPHOLSTERY CLEANER Date : 04/17/2014 CDT 04/24/2014 CDT 05/01/2014 UPHOLSTERY CLEANER 05/15/2014 UPHOLSTERY CLEANER Location of INR sample : Lab Lab [...] will trynoted dose called to mom Fabiola [phone] called to Fabiola/no changes Called to mother/Fabiola, not awareof any changes Recommend Recheck : One week One week Two weeks Two weeks Plan completed by : KHADAR HACKETT RN - 05/07/2015 11:06 UPHOLSTERY CLEANER KHADAR BANDA RN - 05/07/2015 11:06 KHADAR PALOMINO RN - 05/07/2015 11:06 KHADAR PALOMINO RN - 05/07/2015 11:06 UPHOLSTERY CLEANER Date : 06/03/2014 UPHOLSTERY CLEANER 06/05/2014 UPHOLSTERY CLEANER 06/10/2014 UPHOLSTERY CLEANER 06/11/2014 UPHOLSTERY CLEANER Location of INR sample : Lab Type [...] Fabiola granados. Hue will be staying in [place] 2wks post-surgery & have INR drawn there. [...] lovenox tomorrow AM as ordered. INR in [place] for next several weeks as pt will be recovering there. Recommend Recheck : Other: depending on Dr. Henriquez's preop. Other: 06/18 Other: 06/13/14 Plan completed by : KHADAR SANDERS RN - 05/07/2015 11:06 KHADAR PALOMINO RN - 05/07/2015 11:06 KHADAR PALOMINO RN - 05/07/2015 11:06 KHADAR PALOMINO RN - 05/07/2015 11:06 UPHOLSTERY CLEANER Date : 06/14/2014 UPHOLSTERY CLEANER 06/14/2014 UPHOLSTERY CLEANER 06/16/2014 UPHOLSTERY CLEANER 06/23/2014 UPHOLSTERY CLEANER Location of INR sample : Clinic Lab Lab Type of Sample : Venous Venous INR Result : 1.3 on 06/13 2.4 faxed from lab 2.0 Warfarin Dose : (pt took 2.5mg 06/13) 5mg Sat and 5mg Sun (06/14 and 06/15) 5mg Mon and 2.5mg all other days 5mg Mon and 2.5mg all other days Total Weekly Warfarin Dose : 20 20 Comment : [place] lab called with INR result from 06/13, reported they left a message with Dr. Henriquez and hadn't heard back, spoke with Fabiola granados, and gave doses, continue Lovenox and repeat INR 06/16, message left with INR clinic in [place] to contact CF Please contact [facility] lab on 06/16 for result and may call Fabiola at [phone] with instructions call to Fabiola/will stop Lovenox injections and take noted dose/pt has an appt here in [place] 06/23 so will do lab appt here that day Called to Fabiola/ Hue will be back at [facility] by next draw. will have done on . no changes to meds/diet. Recommend Recheck : Two days One week Two weeks Plan completed by : KHADAR Mattson LM RN - 05/07/2015 11:06 UPHOLSTERY CLEANER KHADAR BANDA RN - 05/07/2015 11:06 UPHOLSTERY CLEANER KHADAR BANDA RN - 05/07/2015 11:06 KHADAR PALOMINO RN - 05/07/2015 11:06 UPHOLSTERY CLEANER Date : 07/10/2014 UPHOLSTERY CLEANER 07/17/2014 UPHOLSTERY CLEANER 07/31/2014 UPHOLSTERY CLEANER 09/11/2014 CDT Location of INR sample : [...] : KHADAR Dumont RN - 05/07/2015 11:06 UPHOLSTERY CLEANER KHADAR BANDA RN - 05/07/2015 11:06 UPHOLSTERY CLEANER KHADAR BANDA RN - 05/07/2015 11:06 KHADAR PALOMINO RN - 05/07/2015 11:06 UPHOLSTERY CLEANER Date : 09/12/2014 CDT 09/25/2014 CDT 10/02/2014 [...] : KHADAR Rondon RN - 05/07/2015 11:06 KHADAR PALOMINO RN - 05/07/2015 11:06 UPHOLSTERY CLEANER KHADAR BANDA RN - 05/07/2015 11:06 KHADAR PALOMINO RN - 05/07/2015 11:06 UPHOLSTERY CLEANER Date : 10/23/2014 CDT 11/13/2014 CDT 11/20/2014 [...] 11:06 KHADAR PALOMINO RN - 05/07/2015 11:06 UPHOLSTERY CLEANER Date : 12/04/2014 CDT 12/18/2014 CDT 01/15/2015 [...] : KHADAR Vargas RN - 05/07/2015 11:06 KHADAR PALOMINO RN - 05/07/2015 11:06 KHADAR PALOMINO RN - 05/07/2015 11:06 KHADAR PALOMINO RN - 05/07/2015 11:06 UPHOLSTERY CLEANER Date : 02/05/2015 CDT 02/26/2015 CDT 03/05/2015 [...] 22.5 22.5 22.5 Comment : Called to Mom/Faboila,no changes Called to Mom/Fabiola, had period last wk & took some Midol, no other changes/bleeding Called to Mom/Fabiola, no changes Called to Mom/Fabiola, no changes Recommend Recheck : Other: 02/26/15 One week Two weeks Three weeks Plan completed by : KHADAR SLOAN RN - 05/07/2015 11:06 UPHOLSTERY CLEANER KHADAR BANDA RN - 05/07/2015 11:06 UPHOLSTERY CLEANER KHADAR BANDA RN - 05/07/2015 11:06 UPHOLSTERY CLEANER KHADAR BANDA RN - 05/07/2015 11:06 UPHOLSTERY CLEANER Date : 04/09/2015 CDT 05/07/2015 UPHOLSTERY CLEANER Location of INR sample : Lab Lab [...] : KHADAR Goins RN - 05/07/2015 11:06 UPHOLSTERY CLEANER KHADAR BANDA RN - 05/07/2015 11:06 UPHOLSTERY CLEANER Anticoagulation Assessment / History Visit : Phone management Plan of Care Date : 01/29/2008 CDT Primary Physician Anticoagulation : TASHA HENRIQUEZ MD 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 : DVT Lower, Other: Deep Phlebitis-Leg NEC CHADS2 Score Date : 09/05/2013 CDT KHADAR BANDA RN - 05/07/2015 11:06 UPHOLSTERY CLEANER [facility] [employer] Document Id: [id number] UPHOLSTERY CLEANER!439 LSTERY CLEANER Miscellaneous - Meli Campo RMichaelNMichael - 05/07/2015 11:00 AM CST Results Notification From: MELI CAMPO RN ( Anticoagulation Nurse) To: Anticoagulation Nurse; Sent: 05/07/2015 11:00:37 UPHOLSTERY CLEANER Show up: 05/07/2015 11:01:00 UPHOLSTERY CLEANER Subject: Results Notification Results: Date Result Name Value Ref Range 05/07/2015 08:00 PT 26.9 second(s) 05/07/2015 08:00 INR 2.4 INR (0.8 - 1.1) Source: [facility] POWER[employer]ART Document Id: [id number] documented in this encounter Plan of Treatment Upcoming Encounters Date Type Specialty Care Team Description 06/22/2022 Appointment Laboratory Medicine Rusty Vee M.D. [address] [place] [phone] 06/22/2022 Diagnostic Pulmonary Medicine Rusty Vee M.D. [address] [place] [phone] 06/22/2022 Diagnostic Pulmonary Medicine Rusty Vee M.D. [address] [place] [phone] 06/22/2022 Appointment Radiology Rusty Vee M.D. [address] [place] [phone] 06/23/2022 Clinical Communication Admitting/Central Scheduling 06/28/2022 Appointment Pulmonary Medicine Rusty Vee M.D. [address] [place] [phone] 06/28/2022 Appointment Pulmonary Medicine Rusty Vee M.D. [address] [place] [phone] documented as of this encounter Procedures Procedure Name Priority Date/Time Associated Comments Diagnosis PROTHROMBIN TIME Routine 05/07/2015 8:00 AM Resul ts for this (PT), P UPHOLSTERY CLEANER procedure are i n the results section. documented in this encounter Results (ABNORMAL) PT (Prothrombin Time) with INR (05/07/2015 8:00 AM UPHOLSTERY CLEANER) [facility] Method Time Signature Prothrombin 26.9 SECONDS [...] / Volume Laterality Blood 05/07/2015 8:00 AM UPHOLSTERY CLEANER Tasha Henriquez M.D. LAB BLOOD ADD-ON Performing Organization Address City/State/ZIP Code Phon e Number POWERCHART documented in this encounter Visit Diagnoses Not on filedocumented in this encounter
--- OUTSIDE RECORDS SUMMARY | 2022-05-25 21:07 | XMS_ITS | Encounter Summary ---
:1975 Author Organization [facility] Address [address] [place] [address] Care Team Providers Name Role Phone Unavailable Primary Care Provider Unavailable Encounter Details Date Type Department Care Team Description 06/04/2015 Hospital Encounter HX [facility] Marsha Henriquez M.D. [address] [place], [place] [address] (Wo rk) Social History [...] at Date Recorded Female 05/03/2022 7:07 PM TELEVISION AUDIO ENGINEER documented as of this encounter Last Filed Vital Signs Vital Sign Reading Time Taken Comments Blood Pressure - - Pulse - - Temperature - - Respiratory Rate - - Oxygen Saturation - - Inhaled Oxygen Concentration - - Weight - - Height 147 cm (4' 9.87) 06/04/2015 6:19 AM TELEVISION AUDIO ENGINEER Body Mass Index - - documented [...] Anticoagulation Patient Intake Entered On: 06/04/2015 10:38 TELEVISION AUDIO ENGINEER Performed On: 06/04/2015 10:35 TELEVISION AUDIO ENGINEER by WALI MCCLELLAN RN Plan INR goal range : 2.0 - 3.0 Duration of Therapy : Lifelong Tablet Size : 3 mg, 5 mg WALI MCCLELLAN RN - 06/04/2015 10:35 TELEVISION AUDIO ENGINEER Anticoagulation Management Plan Grid Date : 09/05/2013 [...] completed by : WALI Tracy RN - 06/04/2015 10:35 TELEVISION AUDIO ENGINEER WALI MCCLELLAN RN - 06/04/2015 10:35 TELEVISION AUDIO ENGINEER WALI MCCLELLAN RN - 06/04/2015 10:35 TELEVISION AUDIO ENGINEER WALI MCCLELLAN RN - 06/04/2015 10:35 TELEVISION AUDIO ENGINEER Date : 12/26/2013 CDT 01/30/2014 CDT 03/06/2014 [...] : WALI Davidson RN - 06/04/2015 10:35 TELEVISION AUDIO ENGINEER WALI MCCLELLAN RN - 06/04/2015 10:35 TELEVISION AUDIO ENGINEER WALI MCCLELLAN RN - 06/04/2015 10:35 TELEVISION AUDIO ENGINEER WALI MCCLELLAN RN - 06/04/2015 10:35 TELEVISION AUDIO ENGINEER Date : 03/20/2014 CDT 03/27/2014 CDT 04/10/2014 [...] lackey LM /pharmacy WALI MCCLELLAN RN - 06/04/2015 10:35 TELEVISION AUDIO ENGINEER WALI MCCLELLAN RN - 06/04/2015 10:35 TELEVISION AUDIO ENGINEER WALI MCCLELLAN RN - 06/04/2015 10:35 WALI REYNOLDS RN - 06/04/2015 10:35 TELEVISION AUDIO ENGINEER Date : 04/17/2014 CDT 04/24/2014 CDT 05/01/2014 TELEVISION AUDIO ENGINEER 05/15/2014 TELEVISION AUDIO ENGINEER Location of INR sample : Lab [...] will trynoted dose called to mom Fabiola [phone] called to Fabiola/no changes Called to mother/Fabiola, not awareof any changes Recommend Recheck : One week One week Two weeks Two weeks Plan completed by : WALI CHOI RN - 06/04/2015 10:35 TELEVISION AUDIO ENGINEER WALI MCCLELLAN RN - 06/04/2015 10:35 WALI REYNOLDS RN - 06/04/2015 10:35 WALI REYNOLDS RN - 06/04/2015 10:35 TELEVISION AUDIO ENGINEER Date : 06/03/2014 TELEVISION AUDIO ENGINEER 06/05/2014 TELEVISION AUDIO ENGINEER 06/10/2014 TELEVISION AUDIO ENGINEER 06/11/2014 TELEVISION AUDIO ENGINEER Location of INR sample : Lab [...] Called motherFabiola. Hue will be staying in [place] 2wks post-surgery & have INR drawn there. [...] lovenox tomorrow AM as ordered. INR in [place] for next several weeks as pt will be recovering there. Recommend Recheck : Other: depending on Dr. Henriquez's preop. Other: 06/18 Other: 06/13/14 Plan completed by : WALI TYLER RN - 06/04/2015 10:35 TELEVISION AUDIO ENGINEER WALI MCCLELLAN RN - 06/04/2015 10:35 WALI REYNOLDS RN - 06/04/2015 10:35 WALI REYNOLDS RN - 06/04/2015 10:35 TELEVISION AUDIO ENGINEER Date : 06/14/2014 TELEVISION AUDIO ENGINEER 06/14/2014 TELEVISION AUDIO ENGINEER 06/16/2014 TELEVISION AUDIO ENGINEER 06/23/2014 TELEVISION AUDIO ENGINEER Location of INR sample : Clinic [...] Warfarin Dose : 20 20 Comment : [facility] called with INR result from 06/13, reported they left a message with Dr. Henriquez and hadn't heard back, spoke with motherFabiola, and gave doses, continue Lovenox and repeat INR 06/16, message left with INR clinic in [place] to contact Please contact [facility] lab on 06/16 for result and may call Fabiola at [phone] with instructions call to Fabiola/will stop Lovenox injections and take noted dose/pt has an appt here in [place] 06/23 so will do lab appt here that day Called to Fabiola/ Hue will be back at [facility] [place] by next draw. will have done on . no changes to meds/diet. Recommend Recheck : Two days One week Two weeks Plan completed by : WALI Steven LM RN - 06/04/2015 10:35 TELEVISION AUDIO ENGINEER WALI MCCLELLAN RN - 06/04/2015 10:35 WALI REYNOLDS RN - 06/04/2015 10:35 WALI REYNOLDS RN - 06/04/2015 10:35 TELEVISION AUDIO ENGINEER Date : 07/10/2014 TELEVISION AUDIO ENGINEER 07/17/2014 TELEVISION AUDIO ENGINEER 07/31/2014 TELEVISION AUDIO ENGINEER 09/11/2014 CDT Location of INR sample [...] : WALI Yarbrough RN - 06/04/2015 10:35 TELEVISION AUDIO ENGINEER WALI MCCLELLAN RN - 06/04/2015 10:35 WALI REYNOLDS RN - 06/04/2015 10:35 WALI REYNOLDS RN - 06/04/2015 10:35 TELEVISION AUDIO ENGINEER Date : 09/12/2014 CDT 09/25/2014 CDT 10/02/2014 [...] : WALI Almaguer RN - 06/04/2015 10:35 TELEVISION AUDIO ENGINEER WALI MCCLELLAN RN - 06/04/2015 10:35 WALI REYNOLDS RN - 06/04/2015 10:35 WALI REYNOLDS RN - 06/04/2015 10:35 TELEVISION AUDIO ENGINEER Date : 10/23/2014 CDT 11/13/2014 CDT 11/20/2014 [...] is she is 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 So1ics/no bleeding/consult with Quintin/Pharmacy and called Mom with orders Per Meredith Hernandez, no changes, has been drinking some Kiwi Juice, no bleeding/consult with Quintin/Pharmacy Called to mom /Fabiola, no changes, rev'd w/BCarlson/Pharmacy Recommend Recheck : Three weeks One week One week One week Plan completed by : WALI Skniner RN - 06/04/2015 10:35 TELEVISION AUDIO ENGINEER WALI MCCLELLAN RN - 06/04/2015 10:35 WALI REYNOLDS RN - 06/04/2015 10:35 WALI REYNOLDS RN - 06/04/2015 10:35 TELEVISION AUDIO ENGINEER Date : 12/04/2014 CDT 12/18/2014 CDT 01/15/2015 [...] Dr Henriquez, rev'd dose w/LZorn/Pharmacy Called to mom/Faboila, no changes Recommend Recheck : Two weeks Three weeks One week Two weeks Plan completed by : darya PRECIADO JM WALI ESPINOSA RN - 06/04/2015 10:35 WALI REYNOLDS RN - 06/04/2015 10:35 WALI REYNOLDS RN - 06/04/2015 10:35 WALI REYNOLDS RN - 06/04/2015 10:35 TELEVISION AUDIO ENGINEER Date : 02/05/2015 CDT 02/26/2015 CDT 03/05/2015 [...] : WALI LAWRENCE RN - 06/04/2015 10:35 TELEVISION AUDIO ENGINEER WALI MCCLELLAN RN - 06/04/2015 10:35 TELEVISION AUDIO ENGINEER WALI MCCLELLAN RN - 06/04/2015 10:35 TELEVISION AUDIO ENGINEER WALI MCCLELLAN RN - 06/04/2015 10:35 TELEVISION AUDIO ENGINEER Date : 04/09/2015 CDT 05/07/2015 TELEVISION AUDIO ENGINEER 06/04/2015 TELEVISION AUDIO ENGINEER Location of INR sample : Lab [...] : WALI Arias RN - 06/04/2015 10:35 TELEVISION AUDIO ENGINEER WALI MCCLELLAN RN - 06/04/2015 10:35 TELEVISION AUDIO ENGINEER WALI MCCLELLAN RN - 06/04/2015 10:35 TELEVISION AUDIO ENGINEER Anticoagulation Assessment / History Visit : Phone management Plan of Care Date : 01/29/2008 CDT Primary Physician Anticoagulation : TASHA HENRIQUEZ MD 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 : DVT Lower, Other: Deep Phlebitis-Leg NEC CHADS2 Score Date : 09/05/2013 CDT WALI MCCLELLAN RN - 06/04/2015 10:35 TELEVISION AUDIO ENGINEER Changes / Problems Changes/Problems Since Last Visit : None Been Scheduled For : None Missed Coumadin Doses : None Change In Intake : None Change In Medication : None Have You Had : None Plans to Travel : WALI Peralta RN - 06/04/2015 10:35 TELEVISION AUDIO ENGINEER Source: [employer] Document Id: [id number] TELEVISION AUDIO ENGINEER!457 VISION AUDIO ENGINEER Miscellaneous - Wali Mcclellan - 06/04/2015 10:08 AM CST Results Notification Document Contains Addenda Addendum by WALI MCCLELLAN RN on 04 June 2015 10:40:51 TELEVISION AUDIO ENGINEER Orders called to Mom/Fabiola. From: WALI MCCLELLAN RN ( Anticoagulation Nurse) To: Anticoagulation Nurse; Sent: 06/04/2015 10:08:18 TELEVISION AUDIO ENGINEER Show up: 06/04/2015 10:09:00 TELEVISION AUDIO ENGINEER Subject: Results Notification Results: Date Result Name Value Ref Range 06/04/2015 07:55 PT 27.4 second(s) 06/04/2015 07:55 INR 2.4 INR (0.8 - 1.1) Source: [facility] POWERCHART Document Id: [id number] Electronically signed by [facility] Dry Roller [id number] at 11/21/2016 6:19 PM CDT documented in this encounter Plan of Treatment Upcoming Encounters Date Type Specialty Care Team Description 06/22/2022 Appointment Laboratory Medicine Rusty Vee M.D. [address] [place] [phone] 06/22/2022 Diagnostic Pulmonary Medicine Rusty Vee M.D. [address] [place] [phone] 06/22/2022 Diagnostic Pulmonary Medicine Rusty Vee M.D. [address] [place] [phone] 06/22/2022 Appointment Radiology Rusty Vee M.D. [address] [place] [phone] 06/23/2022 Clinical Communication Admitting/Central Scheduling 06/28/2022 Appointment Pulmonary Medicine Rusty Vee M.D. [address] [place] [phone] 06/28/2022 Appointment Pulmonary Medicine Rusty Vee M.D. [address] [place] [phone] documented as of this encounter Procedures Procedure Name Priority Date/Time Associated Comments Diagnosis PROTHROMBIN TIME Routine 06/04/2015 7:55 AM Resul ts for this (PT), P TELEVISION AUDIO ENGINEER procedure are i n the results section. documented in this encounter Results (ABNORMAL) PT (Prothrombin Time) with INR (06/04/2015 7:55 AM TELEVISION AUDIO ENGINEER) [facility] Method Time Signature Prothrombin 27.4 SECONDS [...] / Volume Laterality Blood 06/04/2015 7:55 AM TELEVISION AUDIO ENGINEER Tasha Henriquez M.D. LAB BLOOD ADD-ON Performing Organization Address City/State/ZIP Code Phon e Number POWERCHART documented in this encounter Visit Diagnoses Not on filedocumented in this encounter
--- OUTSIDE RECORDS SUMMARY | 2022-05-25 21:07 | XMS_ITS | Encounter Summary ---
:1975 Author Organization [facility] Address [address] [place] [address] Care Team Providers Name Role Phone Unavailable Primary Care Provider Unavailable Encounter Details Date Type Department Care Team Description 09/17/2015 Hospital Encounter HX [facility] Marsha Henriquez M.D. [address] [place], [place] [address] (Wo rk) Social History [...] or relatives? How often do you attend yazidism or More than 4 times per year 05/04/2022 sabianism services? Do you belong to any clubs or Yes 05/04/2022 organizations such as yazidism groups, unions, fraternal or athletic groups, or [...] at Date Recorded Female 05/03/2022 7:07 PM MINE PRODUCTION ENGINEER documented as of this encounter Last [...] completed by : WALI Tracy RN - 09/17/2015 10:01 CDT WALI MCCLELLAN [...] long time, no bleeding now [place] [facility] [place] Fabiola,call if changes Recommend Recheck : Other: 5 weeks Other: 5 weeks Other: 03/10/2014 Other: 03/20/14 Plan completed by : WALI Davidson RN - 09/17/2015 10:01 CDT WALI MCCLELLAN [...] lackey LM /pharmacy WALI MCCLELLAN RN - 09/17/2015 10:01 CDT WALI MCCLELLAN RN - 09/17/2015 10:01 CDT WALI MCCLELLAN RN - 09/17/2015 10:01 CDT WALI MCCLELLAN RN - 09/17/2015 10:01 CDT Date : 04/17/2014 CDT 04/24/2014 CDT 05/01/2014 MINE PRODUCTION ENGINEER 05/15/2014 MINE PRODUCTION ENGINEER Location of INR sample : Lab [...] will trynoted dose called to mom Fabiola [phone] called to Fabiola/no changes Called to mother/Fabiola, not awareof any changes Recommend Recheck : One week One week Two weeks Two weeks Plan completed by : MARIA GUADALUPE PRECIADO WALI MCCLELLAN RN - 09/17/2015 10:01 T WALI MCCLELLAN RN - 09/17/2015 10:01 WALI GALINDO RN - 09/17/2015 10:01 WALI OGLESBY RN - 09/17/2015 10:01 CDT Date : 06/03/2014 MINE PRODUCTION ENGINEER 06/05/2014 MINE PRODUCTION ENGINEER 06/10/2014 MINE PRODUCTION ENGINEER 06/11/2014 MINE PRODUCTION ENGINEER Location of INR sample : Lab [...] Called motherFabiola. Hue will be staying in [place] 2wks post-surgery & have INR drawn there. [...] lovenox tomorrow AM as ordered. INR in [place] for next several weeks as pt will be recovering there. Recommend Recheck : Other: depending on Dr. Henriquez's preop. Other: 06/18 Other: 06/13/14 Plan completed by : WALI TYLER RN - 09/17/2015 10:01 CDT WALI MCCLELLAN RN - 09/17/2015 10:01 WALI GALINDO RN - 09/17/2015 10:01 PATRICIAT WALI MCCLELLAN RN - 09/17/2015 10:01 CDT Date : 06/14/2014 MINE PRODUCTION ENGINEER 06/14/2014 MINE PRODUCTION ENGINEER 06/16/2014 MINE PRODUCTION ENGINEER 06/23/2014 MINE PRODUCTION ENGINEER Location of INR sample : Clinic [...] Warfarin Dose : 20 20 Comment : [place] lab called with INR result from 06/13, reported they left a message with Dr. Henriquez and hadn't heard back, spoke with Fabiola granados, and gave doses, continue Lovenox and repeat INR 06/16, message left with INR clinic in [place] to contact CF Please contact [facility] lab on 06/16 for result and may call Fabiola at [phone] with instructions call to Fabiola/will stop Lovenox injections and take noted dose/pt has an appt here in [place] 06/23 so will do lab appt here that day Called to Fabiola/ Hue will be back at [facility] by next draw. will have done on . no changes to meds/diet. Recommend Recheck : Two days One week Two weeks Plan completed by : WALI Steven LM, RN - 09/17/2015 10:01 CDT WALI MCCLELLAN RN - 09/17/2015 10:01 CDT WALI MCCLELLAN RN - 09/17/2015 10:01 CDT WALI MCCLELLAN RN - 09/17/2015 10:01 CDT Date : 07/10/2014 MINE PRODUCTION ENGINEER 07/17/2014 MINE PRODUCTION ENGINEER 07/31/2014 MINE PRODUCTION ENGINEER 09/11/2014 CDT Location of INR sample [...] : WALI Yarbrough RN - 09/17/2015 10:01 CDT WALI MCCLELLAN RN - 09/17/2015 10:01 PATRICIAT WALI MCCLELLAN RN - 09/17/2015 10:01 CDWALI OGLESBY RN - 09/17/2015 10:01 CDT Date : [...] : WALI Almaguer RN - 09/17/2015 10:01 CDT WALI MCCLELLAN [...] CDT WALI MCCLELLAN RN - 09/17/2015 10:01 T WALI MCCLELLAN RN - 09/17/2015 10:01 T WALI MCCLELLAN [...] 10:01 CDT Date : 04/09/2015 CDT 05/07/2015 MINE PRODUCTION ENGINEER 06/04/2015 MINE PRODUCTION ENGINEER 07/02/2015 MINE PRODUCTION ENGINEER Location of INR sample : Lab [...] completed by : WALI Nelson RN - 09/17/2015 10:01 CDT WALI MCCLELLAN RN - 09/17/2015 10:01 CDT WALI MCCLELLAN RN - 09/17/2015 10:01 CDT WALI MCCLELLAN RN - 09/17/2015 10:01 CDT Date : 08/06/2015 MINE PRODUCTION ENGINEER 09/17/2015 CDT Location of INR sample : [...] Six weeks Plan completed by : WALI ORCHA RN - 09/17/2015 10:01 CDT WALI MCCLELLAN RN - 09/17/2015 10:01 CDT Anticoagulation Assessment [...] MCCLELLAN RN - 09/17/2015 10:01 CDT Source: [facility] POWERCHART Document Id: [id number] Miscellaneous - Wali Mcclellan - 09/17/2015 [...] INR 2.8 INR (0.9 - 1.1) Source: [facility] POWERCHART Document Id: [id number] Electronically signed by [employer], [facility] [employer] Horse [employer] Official [id number] at 11/19/2016 3:35 PM CDT documented in this encounter Plan of Treatment Upcoming Encounters Date Type Specialty Care Team Description 06/22/2022 Appointment Laboratory Medicine Rusty Vee M.D. [address] [place] [phone] 06/22/2022 Diagnostic Pulmonary Medicine Rusty Vee M.D. [address] [place] [phone] 06/22/2022 Diagnostic Pulmonary Medicine Rusty Vee M.D. [address] [place] [phone] 06/22/2022 Appointment Radiology Rusty Vee M.D. [address] [place] [phone] 06/23/2022 Clinical Communication Admitting/Central Scheduling 06/28/2022 Appointment Pulmonary Medicine Rusty Vee M.D. [address] [place] [phone] 06/28/2022 Appointment Pulmonary Rusty Mattson M.D. [address] [place] [phone] documented as of this encounter Procedures Procedure Name Priority Date/Time Associated Comments Diagnosis PROTHROMBIN TIME Routine 09/17/2015 8:05 AM Resul ts for this (PT), P CDT procedure are i n the results section. documented in this encounter Results (ABNORMAL) PT (Prothrombin Time) with INR (09/17/2015 8:05 AM CDT) [facility] Method Time Signature Prothrombin 31.0 (H) 8.7 [...]
--- OUTSIDE RECORDS SUMMARY | 2022-05-25 21:07 | XMS_ITS | Encounter Summary ---
:1975 Author Organization [facility] Address [address] [place] [id number] Care Team Providers Name Role Phone Unavailable Primary Care Provider Unavailable Encounter Details Date Type Department Care Team Description 08/06/2015 Hospital Encounter [facility]X [facility] Marsha Henriquez M.D. [address] [place], [place] [address] (Wo rk) Social History [...] at Date Recorded Female 05/03/2022 7:07 PM TEMPERATURE CONTROL INSPECTOR documented as of this encounter Last Filed Vital Signs Vital Sign Reading Time Taken Comments Blood Pressure - - Pulse - - Temperature - - Respiratory Rate - - Oxygen Saturation - - Inhaled Oxygen Concentration - - Weight - - Height 147 cm (4' 9.87) 08/06/2015 7:39 AM TEMPERATURE CONTROL INSPECTOR Body Mass Index - - documented in this encounter Medications at Time of Discharge Medication Sig Dispensed Refills Start Date End Date multivitamin tablet Take 2 tablets by 0 3 mouth daily. FLUORIDE, SODIUM, Apply 1 application 0 3 12/31/2019 DENTAL topically 2 (two) times a day. documented as of this encounter Miscellaneous Notes Miscellaneous - Wali Zapata R.N. - 08/06/2015 3:51 PM CST Anticoagulation Patient Intake Anticoagulation Patient Intake Entered On: 08/06/2015 15:51 TEMPERATURE CONTROL INSPECTOR Performed On: 08/06/2015 15:51 TEMPERATURE CONTROL INSPECTOR by WALI ZAPATA RN Plan INR goal range : 2.0 - 3.0 Duration of Therapy : Lifelong Tablet Size : 5 mg WALI ZAPATA RN - 08/06/2015 15:51 TEMPERATURE CONTROL INSPECTOR Anticoagulation Management Plan Grid Date : 09/05/2013 [...] JM WALI Cortez RN - 08/06/2015 15:51 TEMPERATURE CONTROL INSPECTOR WALI ZAPATA RN - 08/06/2015 15:51 WALI HARDWICK RN - 08/06/2015 15:51 TEMPERATURE CONTROL INSPECTOR WALI ZAPATA RN - 08/06/2015 15:51 TEMPERATURE CONTROL INSPECTOR Date : 12/26/2013 CDT 01/30/2014 CDT 03/06/2014 [...] a long time, no bleeding now left [facility] for Fabiola,call if changes Recommend Recheck : Other: 5 weeks Other: 5 weeks Other: 03/10/2014 Other: 03/20/14 Plan completed by : WALI Chau RN - 08/06/2015 15:51 TEMPERATURE CONTROL INSPECTOR WALI ZAPATA RN - 08/06/2015 15:51 TEMPERATURE CONTROL INSPECTOR WALI ZAPATA RN - 08/06/2015 15:51 TEMPERATURE CONTROL INSPECTOR WALI ZAPATA RN - 08/06/2015 15:51 TEMPERATURE CONTROL INSPECTOR Date : 03/20/2014 CDT 03/27/2014 CDT 04/10/2014 [...] try dec as noted Called to mom, phoebehanges to meds has been drinking grape juice. no bleeding. no vitamin K per Dr. Duarte. dose consultwith Agatha Hopkins/Pharmacy. instructed to be seen if bleeding occurs. called mom, Recommend Recheck : One week Two weeks Two days One day, Other: Plan completed by : darya lackey LM /pharmacy WALI ZAPATA RN - 08/06/2015 15:51 TEMPERATURE CONTROL INSPECTOR WALI ZAPATA RN - 08/06/2015 15:51 TEMPERATURE CONTROL INSPECTOR WALI ZAPATA RN - 08/06/2015 15:51 TEMPERATURE CONTROL INSPECTOR WAIL ZAPATA RN - 08/06/2015 15:51 TEMPERATURE CONTROL INSPECTOR Date : 04/17/2014 CDT 04/24/2014 CDT 05/01/2014 TEMPERATURE CONTROL INSPECTOR 05/15/2014 TEMPERATURE CONTROL INSPECTOR Location of INR sample : Lab Lab [...] will trynoted dose called to mom Fabiola [phone] called to Fabiola/no changes Called to mother/Fabiola, not awareof any changes Recommend Recheck : One week One week Two weeks Two weeks Plan completed by : WALI DAVISON RN - 08/06/2015 15:51 TEMPERATURE CONTROL INSPECTOR WALI ZAPATA RN - 08/06/2015 15:51 WALI HARDWICK RN - 08/06/2015 15:51 WALI HARDWICK RN - 08/06/2015 15:51 TEMPERATURE CONTROL INSPECTOR Date : 06/03/2014 TEMPERATURE CONTROL INSPECTOR 06/05/2014 TEMPERATURE CONTROL INSPECTOR 06/10/2014 TEMPERATURE CONTROL INSPECTOR 06/11/2014 TEMPERATURE CONTROL INSPECTOR Location of INR sample : Lab Type [...] Fabiola granados. Hue will be staying in [place] 2wks post-surgery & have INR drawn there. [...] lovenox tomorrow AM as ordered. INR in [place] for next several weeks as pt will be recovering there. Recommend Recheck : Other: depending on Dr. Henriquez's preop. Other: 06/18 Other: 06/13/14 Plan completed by : WALI FONTAINE RN - 08/06/2015 15:51 WALI HARDWICK RN - 08/06/2015 15:51 WALI HARDWICK RN - 08/06/2015 15:51 WALI HARDWICK RN - 08/06/2015 15:51 TEMPERATURE CONTROL INSPECTOR Date : 06/14/2014 TEMPERATURE CONTROL INSPECTOR 06/14/2014 TEMPERATURE CONTROL INSPECTOR 06/16/2014 TEMPERATURE CONTROL INSPECTOR 06/23/2014 TEMPERATURE CONTROL INSPECTOR Location of INR sample : Clinic Lab Lab Type of Sample : Venous Venous INR Result : 1.3 on 06/13 2.4 faxed from lab 2.0 Warfarin Dose : (pt took 2.5mg 06/13) 5mg Sat and 5mg Sun (06/14 and 06/15) 5mg Mon and 2.5mg all other days 5mg Mon and 2.5mg all other days Total Weekly Warfarin Dose : 20 20 Comment : [place] lab called with INR result from 06/13, reported they left a message with Dr. Henriquez and hadn't heard back, spoke with Fabiola granados, and gave doses, continue Lovenox and repeat INR 06/16, message left with INR clinic in [place] to contact CF Please contact [facility] lab on 06/16 for result and may call Fabiola at [phone] with instructions call to Fabiola/will stop Lovenox injections and take noted dose/pt has an appt here in [place] 06/23 so will do lab appt here that day Called to Fabiola/ Hue will be back at [facility] by next draw. will have done on . no changes to meds/diet. Recommend Recheck : Two days One week Two weeks Plan completed by : WALI Senior LM RN - 08/06/2015 15:51 TEMPERATURE CONTROL INSPECTOR WALI ZAPATA RN - 08/06/2015 15:51 TEMPERATURE CONTROL INSPECTOR WALI ZAPATA RN - 08/06/2015 15:51 TEMPERATURE CONTROL INSPECTOR WALI ZAPATA RN - 08/06/2015 15:51 TEMPERATURE CONTROL INSPECTOR Date : 07/10/2014 TEMPERATURE CONTROL INSPECTOR 07/17/2014 TEMPERATURE CONTROL INSPECTOR 07/31/2014 TEMPERATURE CONTROL INSPECTOR 09/11/2014 CDT Location of INR sample : [...] : WALI Bryson RN - 08/06/2015 15:51 TEMPERATURE CONTROL INSPECTOR WALI ZAPATA RN - 08/06/2015 15:51 TEMPERATURE CONTROL INSPECTOR WALI ZAPATA RN - 08/06/2015 15:51 TEMPERATURE CONTROL INSPECTOR WALI ZAPATA RN - 08/06/2015 15:51 TEMPERATURE CONTROL INSPECTOR Date : 09/12/2014 CDT 09/25/2014 CDT 10/02/2014 [...] : WALI Lopez RN - 08/06/2015 15:51 TEMPERATURE CONTROL INSPECTOR WALI ZAPATA RN - 08/06/2015 15:51 TEMPERATURE CONTROL INSPECTOR WALI ZAPATA RN - 08/06/2015 15:51 TEMPERATURE CONTROL INSPECTOR WALI ZAPATA RN - 08/06/2015 15:51 TEMPERATURE CONTROL INSPECTOR Date : 10/23/2014 CDT 11/13/2014 CDT 11/20/2014 [...] : WALI Jeffery RN - 08/06/2015 15:51 TEMPERATURE CONTROL INSPECTOR WALI ZAPATA RN - 08/06/2015 15:51 TEMPERATURE CONTROL INSPECTOR WALI ZAPATA RN - 08/06/2015 15:51 WALI HARDWICK RN - 08/06/2015 15:51 TEMPERATURE CONTROL INSPECTOR Date : 12/04/2014 CDT 12/18/2014 CDT 01/15/2015 [...] : WALI Boss RN - 08/06/2015 15:51 TEMPERATURE CONTROL INSPECTOR WALI ZAPATA RN - 08/06/2015 15:51 WALI HARDWICK RN - 08/06/2015 15:51 WALI HARDWICK RN - 08/06/2015 15:51 TEMPERATURE CONTROL INSPECTOR Date : 02/05/2015 CDT 02/26/2015 CDT 03/05/2015 [...] : WALI HAAS RN - 08/06/2015 15:51 TEMPERATURE CONTROL INSPECTOR WALI ZAPATA RN - 08/06/2015 15:51 TEMPERATURE CONTROL INSPECTOR WALI ZAPATA RN - 08/06/2015 15:51 TEMPERATURE CONTROL INSPECTOR WALI ZAPATA RN - 08/06/2015 15:51 TEMPERATURE CONTROL INSPECTOR Date : 04/09/2015 CDT 05/07/2015 TEMPERATURE CONTROL INSPECTOR 06/04/2015 TEMPERATURE CONTROL INSPECTOR 07/02/2015 TEMPERATURE CONTROL INSPECTOR Location of INR sample : Lab Lab [...] by : WALI Chavez RN - 08/06/2015 15:51 TEMPERATURE CONTROL INSPECTOR WALI ZAPATA RN - 08/06/2015 15:51 TEMPERATURE CONTROL INSPECTOR WALI ZAPATA RN - 08/06/2015 15:51 WALI HARDWICK RN - 08/06/2015 15:51 TEMPERATURE CONTROL INSPECTOR Date : 08/06/2015 TEMPERATURE CONTROL INSPECTOR Location of INR sample : Lab Type of Sample : Venous INR Result : 2.7 Warfarin Dose : 5mg Mon/Thurs and 2.5mg all other days Total Weekly Warfarin Dose : 22.5 Comment : Orders called to Fabiola/mother. No changes. Recommend Recheck : Six weeks Plan completed by : WALI CARSON RN - 08/06/2015 15:51 TEMPERATURE CONTROL INSPECTOR Source: [facility] POWERCHART Document Id: [id number] TEMPERATURE CONTROL INSPECTOR![id number] ERATURE CONTROL INSPECTOR Miscellaneous - Wali Zapata R.N. - 08/06/2015 9:37 AM CST Anticoagulation Patient Intake Anticoagulation Patient Intake Entered On: 08/06/2015 9:39 TEMPERATURE CONTROL INSPECTOR Performed On: 08/06/2015 9:37 TEMPERATURE CONTROL INSPECTOR by WALI ZAPATA RN Plan INR goal range : 2.0 - 3.0 Duration of Therapy : Lifelong Tablet Size : 3 mg, 5 mg WALI ZAPATA RN - 08/06/2015 9:37 TEMPERATURE CONTROL INSPECTOR Anticoagulation Management Plan Grid Date : 09/05/2013 [...] completed by : WALI Dowd RN - 08/06/2015 9:37 TEMPERATURE CONTROL INSPECTOR WALI ZAPATA RN - 08/06/2015 9:37 TEMPERATURE CONTROL INSPECTOR WALI ZAPATA RN - 08/06/2015 9:37 WALI HARDWICK RN - 08/06/2015 9:37 TEMPERATURE CONTROL INSPECTOR Date : 12/26/2013 CDT 01/30/2014 CDT 03/06/2014 [...] : WALI Chau RN - 08/06/2015 9:37 WALI HARDWICK RN - 08/06/2015 9:37 WALI HARDWICK RN - 08/06/2015 9:37 WALI HARDWICK RN - 08/06/2015 9:37 TEMPERATURE CONTROL INSPECTOR Date : 03/20/2014 CDT 03/27/2014 CDT 04/10/2014 [...] try dec as noted Called to mom, phoebehanges to meds has been drinking grape juice. no bleeding. no vitamin K per Dr. Duarte. dose consultwith Agatha Hopkins/Pharmacy. instructed to be seen if bleeding occurs. called mom, Recommend Recheck : One week Two weeks Two days One day, Other: Plan completed by : darya lackey LM /pharmacy WALI ZAPATA RN - 08/06/2015 9:37 TEMPERATURE CONTROL INSPECTOR WALI ZAPATA RN - 08/06/2015 9:37 TEMPERATURE CONTROL INSPECTOR WALI ZAPATA RN - 08/06/2015 9:37 TEMPERATURE CONTROL INSPECTOR WALI ZAPATA RN - 08/06/2015 9:37 TEMPERATURE CONTROL INSPECTOR Date : 04/17/2014 CDT 04/24/2014 CDT 05/01/2014 TEMPERATURE CONTROL INSPECTOR 05/15/2014 TEMPERATURE CONTROL INSPECTOR Location of INR sample : Lab Lab [...] needed, will trynoted dose called to mom Fabioal [phone] called to Fabiola/no changes Called to mother/Fabiola, not awareof any changes Recommend Recheck : One week One week Two weeks Two weeks Plan completed by : MARIA GUADALUPE FITCH OZZY WALI LEES RN - 08/06/2015 9:37 TEMPERATURE CONTROL INSPECTOR WALI ZAPATA RN - 08/06/2015 9:37 WALI HARDWICK RN - 08/06/2015 9:37 WAIL HARDWICK RN - 08/06/2015 9:37 TEMPERATURE CONTROL INSPECTOR Date : 06/03/2014 TEMPERATURE CONTROL INSPECTOR 06/05/2014 TEMPERATURE CONTROL INSPECTOR 06/10/2014 TEMPERATURE CONTROL INSPECTOR 06/11/2014 TEMPERATURE CONTROL INSPECTOR Location of INR sample : Lab Type [...] Called motherFabiola. Hue will be staying in [place] 2wks post-surgery & have INR drawn there. [...] lovenox tomorrow AM as ordered. INR in [place] for next several weeks as pt will be recovering there. Recommend Recheck : Other: depending on Dr. Henriquez's preop. Other: 06/18 Other: 06/13/14 Plan completed by : WALI FONTAINE RN - 08/06/2015 9:37 TEMPERATURE CONTROL INSPECTOR WALI ZAAPTA RN - 08/06/2015 9:37 WALI HARDWICK RN - 08/06/2015 9:37 WALI HARDWICK RN - 08/06/2015 9:37 TEMPERATURE CONTROL INSPECTOR Date : 06/14/2014 TEMPERATURE CONTROL INSPECTOR 06/14/2014 TEMPERATURE CONTROL INSPECTOR 06/16/2014 TEMPERATURE CONTROL INSPECTOR 06/23/2014 TEMPERATURE CONTROL INSPECTOR Location of INR sample : Clinic Lab Lab Type of Sample : Venous Venous INR Result : 1.3 on 06/13 2.4 faxed from lab 2.0 Warfarin Dose : (pt took 2.5mg 06/13) 5mg Sat and 5mg Sun (06/14 and 06/15) 5mg Mon and 2.5mg all other days 5mg Mon and 2.5mg all other days Total Weekly Warfarin Dose : 20 20 Comment : [place] lab called with INR result from 06/13, reported they left a message with Dr. Henriquez and hadn't heard back, spoke with mother, Fabiola, and gave doses, continue Lovenox and repeat INR 06/16, message left with INR clinic in to contact CF Please contact [place] lab on 06/16 for result and may call Fabiola at [phone] with instructions call to Fabiola/will stop Lovenox injections and take noted dose/pt has an appt here in [place] 06/23 so will do lab appt here that day Called to Fabiola/ Hue will be back at [facility] by next draw. will have done on . no changes to meds/diet. Recommend Recheck : Two days One week Two weeks Plan completed by : WALI Senior LM, RN - 08/06/2015 9:37 TEMPERATURE CONTROL INSPECTOR WALI ZAPATA RN - 08/06/2015 9:37 TEMPERATURE CONTROL INSPECTOR WALI ZAPATA RN - 08/06/2015 9:37 TEMPERATURE CONTROL INSPECTOR WALI ZAPATA RN - 08/06/2015 9:37 TEMPERATURE CONTROL INSPECTOR Date : 07/10/2014 TEMPERATURE CONTROL INSPECTOR 07/17/2014 TEMPERATURE CONTROL INSPECTOR 07/31/2014 TEMPERATURE CONTROL INSPECTOR 09/11/2014 CDT Location of INR sample : [...] : WALI Bryson RN - 08/06/2015 9:37 WALI HARDWICK RN - 08/06/2015 9:37 WALI HARDWICK RN - 08/06/2015 9:37 TEMPERATURE CONTROL INSPECTOR WALI ZAPATA RN - 08/06/2015 9:37 TEMPERATURE CONTROL INSPECTOR Date : 09/12/2014 CDT 09/25/2014 CDT 10/02/2014 [...] : WALI Lopez RN - 08/06/2015 9:37 TEMPERATURE CONTROL INSPECTOR WALI ZAPATA RN - 08/06/2015 9:37 WALI HARDWICK RN - 08/06/2015 9:37 WALI HARDWICK RN - 08/06/2015 9:37 TEMPERATURE CONTROL INSPECTOR Date : 10/23/2014 CDT 11/13/2014 CDT 11/20/2014 [...] : WALI Jeffery RN - 08/06/2015 9:37 TEMPERATURE CONTROL INSPECTOR WALI ZAPATA RN - 08/06/2015 9:37 WALI HARDWICK RN - 08/06/2015 9:37 WALI HARDWICK RN - 08/06/2015 9:37 TEMPERATURE CONTROL INSPECTOR Date : 12/04/2014 CDT 12/18/2014 CDT 01/15/2015 [...] : WALI Boss RN - 08/06/2015 9:37 TEMPERATURE CONTROL INSPECTOR WALI ZAPATA RN - 08/06/2015 9:37 WALI HARDWICK RN - 08/06/2015 9:37 WALI HARDWICK RN - 08/06/2015 9:37 TEMPERATURE CONTROL INSPECTOR Date : 02/05/2015 CDT 02/26/2015 CDT 03/05/2015 [...] : WALI HAAS RN - 08/06/2015 9:37 TEMPERATURE CONTROL INSPECTOR WALI ZAPATA RN - 08/06/2015 9:37 TEMPERATURE CONTROL INSPECTOR WALI ZAPATA RN - 08/06/2015 9:37 TEMPERATURE CONTROL INSPECTOR WALI ZAPATA RN - 08/06/2015 9:37 TEMPERATURE CONTROL INSPECTOR Date : 04/09/2015 CDT 05/07/2015 TEMPERATURE CONTROL INSPECTOR 06/04/2015 TEMPERATURE CONTROL INSPECTOR 07/02/2015 TEMPERATURE CONTROL INSPECTOR Location of INR sample : Lab Lab [...] : WALI Chavez RN - 08/06/2015 9:37 TEMPERATURE CONTROL INSPECTOR WALI ZAPATA RN - 08/06/2015 9:37 TEMPERATURE CONTROL INSPECTOR WALI ZAPATA RN - 08/06/2015 9:37 TEMPERATURE CONTROL INSPECTOR WALI ZAPATA RN - 08/06/2015 9:37 TEMPERATURE CONTROL INSPECTOR Date : 08/06/2015 TEMPERATURE CONTROL INSPECTOR Location of INR sample : Lab Type of Sample : Venous INR Result : 2.7 Warfarin Dose : 5mg Mon/Thurs and 2.5mg all other days Total Weekly Warfarin Dose : 22.5 Comment : Orders called to Fabiola/mother. No changes. 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 From: WALI ZAPATA RN ( Anticoagulation Nurse) To: Anticoagulation Nurse; Sent: 08/06/2015 09:12:48 TEMPERATURE CONTROL INSPECTOR Show up: 08/06/2015 09:13:00 TEMPERATURE CONTROL INSPECTOR Subject: Results Notification Results: Date Result Name Value Ref Range 08/06/2015 08:00 PT 30.9 second(s) 08/06/2015 08:00 INR 2.7 INR (0.8 - 1.1) Source: [facility] POWERCHART Document Id: [id number] Electronically signed by Lay [facility] [id number] at 11/19/2016 9:34 AM CDT documented in this encounter Plan of Treatment Upcoming Encounters Date Type Specialty Care Team Description 06/22/2022 Appointment Laboratory Medicine Rusty Vee M.D. [address] [place] [phone] 06/22/2022 Diagnostic Pulmonary Medicine Rusty Vee M.D. [address] [place] [phone] 06/22/2022 Diagnostic Pulmonary Medicine Rusty Vee M.D. [address] [place] [phone] 06/22/2022 Appointment Radiology Rusty Vee M.D. [address] [place] [phone] 06/23/2022 Clinical Communication Admitting/Central Scheduling 06/28/2022 Appointment Pulmonary Medicine Rusty Vee M.D. [address] [place] [phone] 06/28/2022 Appointment Pulmonary Medicine Rusty Vee M.D. [address] [place] [phone] documented as of this encounter Procedures Procedure Name Priority Date/Time Associated Comments Diagnosis PROTHROMBIN TIME Routine 08/06/2015 8:00 AM Resul ts for this (PT), P TEMPERATURE CONTROL INSPECTOR procedure are i n the results section. documented in this encounter Results (ABNORMAL) PT (Prothrombin Time) with INR (08/06/2015 8:00 AM TEMPERATURE CONTROL INSPECTOR) [employer] Method Time Signature Prothrombin 30.9 SECONDS POWERCHART [...] / Volume Laterality Blood 08/06/2015 8:00 AM TEMPERATURE CONTROL INSPECTOR Tasha Henriquez M.D. LAB BLOOD ADD-ON Performing Organization Address City/State/ZIP Code Phon e Number POWERCHART documented in this encounter Visit Diagnoses Not on filedocumented in this encounter
--- OUTSIDE RECORDS SUMMARY | 2022-05-25 21:07 | XMS_ITS | Encounter Summary ---
:1975 Author Organization [facility] Address [address] [place] [address] Care Team Providers Name Role Phone Unavailable Primary Care Provider Unavailable Encounter Details Date Type Department Care Team Description 02/18/2016 Hospital Encounter HX [facility] ED Gris Lopez APRN, C.N.P., D.N.P. 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 [address] Name: DORITA SHEFFIELD Date of : 1975 12:00 AM Visit Date: 02/18/2016 10:04 AM [facility] Number: [id number] Address: [address] [place] [phone] Primary Care Provider: TASHA HENRIQUEZ MD IMPORTANT: [facility] in [place] would like to thank you for allowing us to assist you with your healthcare needs. The following includes patient education materials and information regarding your injury/illness. Diagnosis: Cellulitis Leg R Follow-Up Instructions: Your Upcoming Appointments: Date Time Location Provider 02/18/2016 14:00 [facility] FamilyPrac Felicia TSANG, Gerardo David 02/25/2016 08:15 [facility] RETAIL MANAGER Sujit TSANG, Lizzy Benavides Patient Education Materials: Consider Using [...] if you dont have one. Go to [email or web address] and click on Create Your Account. Then, follow the directions to complete the online form. Youll be asked for your [facility] number which you can find at [...] by the [facility] as of 12/30/2015 [facility] Prescription (NEW MED) See [...] ride home with a responsible alliance party. INETTIE CAROLYN MARY , or responsible alliance party have received this information and my questions have been answered. I have discussed any challenges I see with this plan with the nurse or physician. Patient Signature or Responsible Democrat/Relationship Date Time Provider Signature Date Time IMPORTANT: [...] ride home with a responsible alliance party. I, DORITA SHEFFIELD , or responsible alliance party have received this information and my questions have been answered. I have discussed any challenges I see with this plan with the nurse or physician. Patient Signature or Responsible Democrat/Relationship Date Time Provider Signature Date Time Source: [employer] Document Id: [id number] Edward Gallegos R.N. - 02/18/2016 1:19 PM CDT ED Depart Summary [facility] Emergency Department Clinical Discharge Summary PERSON INFORMATION Name DORITA SHEFFIELD Age 41 Years 1975 12:00 AM Sex Female Language Portuguese PCP TASHA HENRIQUEZ MD Marital Status Single Visit Id Visit Reason Cellulitis of leg; INFECTION ON HER LEG Specialty Enc Type Emergency Med Service Emergency Medicine Referred by Track Group [facility] ED Discharge 02/18/2016 1:00 PM Tracking Id [id number] Checkout 02/18/2016 1:00 PM Checkin 02/18/2016 10:04 AM Acuity 3 -Urgent Dispo Type Disch/Trans ShortTerm Gen Hosp-Inpt Care Arrival 02/18/2016 10:04 AM Reg Status Complete LOS 000 02:56 Address: [address] [facility] [phone] Comment: PROVIDER INFORMATION Provider Role Provider Contact Time YOBANI ORLANDO ED Power Station Operator 02/18/16 10:08 MARÍA GONZALEZ RN ED Nurse 02/18/16 10:14 GRIS LOPEZ APRN FRUIT STUFFER ED Provider 02/18/16 10:28 COREY RAYMOND DO ED Provider 02/18/16 10:49 AMBER GALLEGOS RN ED Nurse 02/18/16 12:17 DIAGNOSIS Cellulitis Leg R Comment: PATIENT EDUCATION INFORMATION Instructions: Follow up: Source: [employer] Document Id: [id number] documented in this encounter Medications at Time [...] Discharge Instructions Not Given : Transfer to [place] Patient Status at Discharge from ED : Improved AMBER GALLEGOS RN - 02/18/2016 12:23 CDT Source: [employer] Document Id: [id number] CDT!7 María Gonzalez R.N. - 02/18/2016 11:15 [...] GONZALEZ RN - 02/18/2016 11:22 CDT [facility] [employer] Document Id: [id number] CDT!12 Gris Lopez APRN, CMichaelNMichaelPMichael - 02/18/2016 10:15 AM CDT Cellulitis of [...] with IV clindamycin. Her parents live in [place] and they have asked that she be admitted there. I have spoken with the hospitalist Dr. Brasher, who has accepted the patient in transfer. I think she is stable to go by private vehicle. She has been hemodynamically stable here and will be driven to [facility] by her parents. Electronically Signed By: GRIS LOPEZ APRN, CNP On: 02/18/2016 12:46 PM Modified by and Electronically Signed by: GRIS LOPEZ APRN, CNP On: 02/18/2016 11:10 AM Modified by and Electronically Signed by: COREY RAYMOND DO On: 02/18/2016 12:51 PM Cellulitis of leg Patient: DORITA SHEFFIELD Age: 41 years Sex: Female : 1975 Author: GRIS LOPEZ APRN, CNP Attachments: None Associated Diagnosis: Cellulitis Leg R Basic Information Time seen: Date & time 02/18/2016 10:28:00, Yobani Cha am scribing for and in the presence of Gris Lopez C.N.P, R.N., Yobani Cha am scribing for and in [...] documented in chart. Surgical history: Laparoscopic cholecystectomy ([id number]) on 06/11/2014 at 39 Years. AV - Atrioventricular valve operation ([id number]) on 03/29/2013 at 38 Years. Comments: 04/05/2013 10:24 - TOTOIE LOPEZ CCTV TECHNICIAN Done at [facility] Colonoscopy on 12/04/2012 at 37 Years. Papanicolaou smear taken ([id number]) on 07/19/2010 at 35 Years. I and [...] Problem list: All Problems Atrioventricular canal / [id number] / Confirmed Cellulitis, NOS / 682.9 / [...] Absolute 4.59 10(9)/L Lymph Absolute 0.93 x10(9)/L [place] Absolute 0.51 x10(9)/L Eos Absolute 0.00 x10(9)/L [...] . Reexamination/ Reevaluation 1150 Patient lives in [place], but has been staying with parents during this illness. They would like patient to be admitted in [facility] for convenience factor. We did notify [place] Hospitalist and they did agree to admit patient from [facility] ER. Patient is clinicallystable and afebrile. 1245 [...] APRN, CNP On: 02/18/2016 11:10 AM Source: [facility] POWERCHART Document Id: {[id number]} María Gonzalez, RMichaelN. 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 ) Name of Problem: Atrioventricular canal ; Onset Date:03/26/2013 ; Recorder: TOOTIE LOPEZ LPN; Confirmation: Confirmed ; Classification: Nursing ; Code: 738656292 ; Contributor System: Instabeat ; Last Updated: 04/05/2013 10:22 CDT ; [...] Medical ; Code: 574.20 ; Contributor System: TagArrayChart ; Last Updated: 05/29/2014 11:11 AUTO ELECTRICIAN ; 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: Active ; Responsible Provider: BELLA NULL MD; Vocabulary: ICD-9-CM Impaired Fasting Glucose (ICD-9-CM :790.21 ) Name of Problem: Impaired Fasting Glucose ; Onset Date:07/22/2010 ; Confirmation: Confirmed ; Classification: Medical ; Code: 790.21 ; Contributor System: PowerChart ; Last Updated: 06/06/2014 9:13 AUTO ELECTRICIAN ; 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: Active ; Vocabulary: ICD-9-CM ; Co mments: - Impaired fasting glucose Irregular Menstrual Cycle (ICD-9-CM :626.4 ) Name of Problem: Irregular Menstrual Cycle ; Onset Date: 07/28/2010 ; Confirmation: Confirmed ; Classification: Medical ; Code: 626.4 ; Contributor System: [facility]_HX_PR_UPLOAD ; Last Updated: 09/21/2013 19:06 [...] Contributor System: PowerChart; Last Updated: 06/06/2014 9:13 AUTO ELECTRICIAN ; 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: Active ; Vocabulary: [...] Merly Solomon ; Last Updated: 06/06/2014 9:13 AUTO ELECTRICIAN ; 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: Active ; Vocabulary: ICD-9-CM ; Comments: - Phlebitis and thrombophlebitis of other deep vessels of lower extremities Primary Hypercoagulable State (ICD-9-CM :289.81 ) Name of Problem: Primary Hypercoagulable State ; Onset Date: 01/29/2008 ; Confirmation: Confirmed ; Classification: Medical ; Code: 289.81 ; Contributor System: [facility]_HX_PR_UPLOAD ; Last Updated: 09/21/2013 19:06 CDT ; 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: Active ; Vocabulary: ICD-9-CM ; Comments: - Protein S deficiency With elevated d-dimer Dr. Anna Riley rec: lifelong coumadin Psoriasis (ICD-9-CM :696.1 ) Name of Problem: Psoriasis ; Recorder: TOOTIE LOPEZ LPN; Confirmation: Confirmed ; Classification: Nursing ; Code: 696.1 ; Contributor System: Instabeat ; Last Updated: 04/05/2013 10:24 CDT ; [...] Nursing ; Code: 424.2 ; Contributor System: [employer]at ; Last Updated: 04/05/2013 10:25 CDT ; [...] PNED ; Probability: 0 ; Diagnosis Code: [id number] Triage Chief Complaint Description : right lower leg swelling, redness for 1wk, seen twice before, given anitibiotic shot and RX.. is on Coumadin Information Given By : Patient, Mother Present in Room During Exam/Procedure : Father, Mother Mode of Arrival ED : Private vehicle, Ambulatory, Wheelchair Track : Medical Languages : Portuguese Patient Informed of Triage Location : Emergency department GCS Assessed : Yes Treatments Prior to Arrival : Home treatments Are you ? : No Is Patient Female and 13-50 no hysterectomy : Yes Status : Patient denies MARÍA GONZALEZ ANGELINE - 02/18/2016 10:14 CDT [place] Eye Opening Response [place] : Spontaneously Best Verbal Response [place] : Oriented Best Motor Response [place] : Obeys simple commands [place] Score : 15 MARÍA GONZALEZ ANGELINE - 02/18/2016 10:14 CDT Pain Assessment Pain Symptoms : Yes MARÍA GONZALEZ RN - 02/18/2016 10:14 CDT Pain Scale Pain Scale Verbal 0-10 : Open GONZALEZMARÍA JAMES ANGELINE - 02/18/2016 10:14 CDT Pain Pain Assessment Grid Pain 1 Location : Lower leg Laterality : Right Intensity : 9 MARÍA GONZALEZ ANGELINE - 02/18/2016 10:14 CDT ИРИНА DCP GENERIC CODE Tracking Acuity : 3 -Urgent Tracking Group : [facility] ED MARÍA GONZALEZ ANGELINE - 02/18/2016 10:14 CDT Respiratory Airway : Patent Respirations : Unlabored Respiratory Pattern : Regular Oxygen Therapy : Room air Respiratory Detailed Assessment : Yes GONZALEZDARIEN JAMESASHUTOSH MARCUS - 02/18/2016 10:14 CDT Resp Detailed Respiratory Patient Stated Symptoms : None Cough : None GONZALEZMARÍA JAMES ANGELINE - 02/18/2016 10:14 CDT Breath Sounds Assessment Grid ARSENIO : Clear RUL : Clear GONZALEZMARÍA RN 02/18/2016 10:14 CDT Cardiovascular Heart Rhythm : Regular Skin Color : Normal for ethnicity Skin Description : Dry Skin Temperature : Warm MARÍA GONZALEZ ANGELINE 02/18/2016 10:14 CDT Neurological Last Well Time Known : Not applicable Level of Consciousness : Alert Orientation : Oriented x 3 Characteristics of Speech : Appropriate for age Neuro Patient Stated Symptoms : None Gait : Stiff GONZALEZMARÍA RN - 02/18/2016 10:14 CDT ED Psychosocial Affect/Behavior : Calm Domestic Abuse Concerns : None Behavioral Health Screen/Safety Assmt : No MARÍA GONZALEZ RN - 02/18/2016 10:14 CDT Gastrointestinal Nutrition ED : Adequate GI Detailed Assessment : Yes MARÍA GONZALEZ RN - 02/18/2016 10:14 CDT GI Detailed GI Patient Stated Symptoms : None Last Oral Intake : toast,juice Abdomen Description : Obese DARIEN GONZALEZCY RN - 02/18/2016 10:14 CDT Bowel Sounds Grid LUQ : Hypoactive RUQ : Hypoactive LLQ : Hypoactive RLQ : Hypoactive DARIEN GONZALEZCY RN - 02/18/2016 10:14 CDT Musculoskeletal Fall Prevention Education Provided : NA Activity Mando : Walks occasionally Ambulatory Devices : None DARIEN GONZALEZCY RN - 02/18/2016 10:14 CDT Social Habits Exposure to Tobacco Smoke : Other: never smoker Smoking Status : Never smoker Tobacco 2A : No Tobacco Use/Currently Using : No Tobacco Use/Last 30 Days : No Tobacco Use/Last 12 months : No GONZALEZDARIEN JAMESASHUTOSH MARCUS - 02/18/2016 10:14 CDT Alcohol Use Grid Alcohol Use : Yes Frequency : Occasionally DARIEN GONZALEZCY RN - 02/18/2016 10:14 CDT Recreational Drug Use Grid Drug Use : None DARIEN GONZALEZCY RN - 02/18/2016 10:14 CDT Source: [employer] Document Id: [id number] CDT!91 documented in this encounter Miscellaneous Notes Miscellaneous - Edward Gallegos R.N. - 02/18/2016 1:03 PM CDT Valuables/Belongings Valuables/Belongings Entered On: 02/18/2016 13:03 CDT Performed On: 02/18/2016 13:03 CDT by AMBER GALLEGOS RN Valuables/Belongings Comment : All items removed from the room AMBER GALLEGOS RN - 02/18/2016 13:03 CDT Source: [employer] Document Id: [id number] CDT!3 Miscellaneous - Conversion, Historical Provider Ser - 02/18/2016 1:00 PM CDT Coding Summary-Paper Based CODING DATE: 02/25/2016 FINAL RW [facility] STATUS: Disch/Trans ShortTerm Gen Hosp-Inpt Care [...] CHERRY Date Saved: 02/25/2016 07:30 pm Source: [employer] Document Id: [id number] Miscellaneous - Edward Gallegos R.N. - 02/18/2016 [...] Control : 10 Lynx Visit Level : 21452 Level 4 Treatments Prior to Arrival : Home treatments AMBER GALLEGOS RN - 02/18/2016 13:03 CDT Source: [employer] Document Id: [id number] CDT!19 documented in this encounter Plan of Treatment Upcoming Encounters Date Type Specialty Care Team Description 06/22/2022 Appointment Laboratory Medicine Rusty Vee M.D. [address] [place] [phone] 06/22/2022 Diagnostic Pulmonary Medicine Rusty Vee M.D. [address] [place] [phone] 06/22/2022 Diagnostic Pulmonary Medicine Rusty Vee M.D. [address] [place] [phone] 06/22/2022 Appointment Radiology Rusty Vee M.D. [address] [place] [phone] 06/23/2022 Clinical Communication Admitting/Central Scheduling 06/28/2022 Appointment Pulmonary Medicine Rusty Vee M.D. [address] [place] [phone] 06/28/2022 Appointment Pulmonary Medicine Rusty Vee M.D. [address] [place] [phone] documented as of this encounter Procedures Procedure [...] Bacterial Culture, Blood (02/18/2016 11:17 AM CDT) [facility] Method Time Signature Bacteria/Temi POWERCHART da Culture, [...] (Arm, 02/18/2016 11:17 Right) AM CDT Corey Raymond D.O. LAB MICROBIOLOGY - GENERAL O RDERABLES Performing Organization Address City/State/ZIP Code Phon e Number POWERCHART Bacterial Culture, Blood (02/18/2016 11:08 AM CDT) [facility] Method Time Signature Bacteria/Temi POWERCHART da Culture, [...] - GENERAL O RDERABLES Performing Organization Address City/[facility] Code Phon e Number POWERCHART (ABNORMAL) Automated Differential (02/18/2016 11:00 AM CDT) [facility] Method Time Signature Absolute 4.59 1.70 - [...] D.N.P. LAB BLOOD ADD-ON Performing Organization Address [facility] Phon e Number POWERCHART (ABNORMAL) PT (Prothrombin Time) with INR (02/18/2016 11:00 AM CDT) [facility] [place] Method Time Signature Prothrombin 40.9 (H) 8.7 [...] D.N.P. LAB BLOOD ADD-ON Performing Organization Address City/[facility] Code Phon e Number POWERCHART (ABNORMAL) CBC with Differential (02/18/2016 11:00 AM CDT) Analysis Performed At Patho logist Time Signature Leukocytes 6.1 3.5 - 10.5 POWERCHART X109L Erythrocytes 3.91 3.90 - POWERCHART 5.03 [id number] Hemoglobin 12.7 12.0 - POWERCHART 15.5 GDL [...] D.N.P. LAB BLOOD ADD-ON Performing Organization Address [facility] Code Phon e Number POWERCHART Lactate (02/18/2016 11:00 AM CDT) P athologist Signature Lactate, P 1.6 0.5 - 2.2 POWERCHART MMOLL Comment: No pediatric reference range es tablished Specimen (Source) Anatomical Collection Method Collection Time Re ceived Time Location / / Volume Laterality Blood 02/18/2016 11:00 AM CDT Corey Raymond D.O. LAB BLOOD NON ADD-ON Performing Organization Address City/[facility]/ZIP Code Phon e Number POWERCHART (ABNORMAL) BMP [...] POWERCHART MGDL eGFR >60 >=60 POWERCHART Black/ [id number] [place] HXeGFR (MDRD) 57 (L) >=60 POWERCHART [id number] Comment: Results are in mL/min/1.73m CKD Stage [...]
--- OUTSIDE RECORDS SUMMARY | 2022-05-25 21:07 | XMS_ITS | Encounter Summary ---
:1975 Author Organization [facility] Address [address] [place] [address] Care Team Providers Name Role Phone Unavailable Primary Care Provider Unavailable Encounter Details Date Type Department Care Team Description 02/13/2016 Hospital Encounter HX NO MAPPING Vielka Zamudio P.A.-C., M.S. 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 [address] Name: DORITA SHEFFIELD Date of : 1975 12:00 AM Visit Date: 02/13/2016 10:22 AM [facility] Number: [id number] Address: [address] [facility] [id number] Primary Care Provider: TASHA HENRIQUEZ MD IMPORTANT: [facility] in [place] would like to thank you for allowing us to assist you with your healthcare needs. The following includes patient education materials and information regarding your injury/illness. Diagnosis: Contusion Leg Initial R Follow-Up Instructions: Your Upcoming Appointments: Date Time Location Provider 02/25/2016 08:15 [facility] CASE REVIEWER Sujit TSANG, Lizzy Benavides Patient Education Materials: [...] if you dont have one. Go to [email or web address] and click on Create Your Account. Then, follow the directions to complete the online form. Youll be asked for your [facility] number which you can find at the [...] by the INR Clinic as of 12/30/2015 [facility] [place] ([place] MED) See Instructions Rx mouth [...] Date Time Provider Signature Date Time Source: [facility] [email or web address] Document Id: [id number] Vielka Zamudio P.A.-C. - 02/13/2016 11:29 AM CDT ED Depart Summary [facility] Emergency Department Clinical Discharge Summary PERSON INFORMATION Name DORITA SHEFFIELD Age 41 Years 1975 12:00 AM Sex Female Language Kiswahili PCP TASHA HENRIQUEZ MD Marital Status Single Visit Id Visit Reason UC - Leg Pain or Swelling; Right leg pain Specialty [facility] Urgent Care Referred by Track Group [facility] ED Discharge 02/13/2016 11:28 AM Tracking Id [id number] Checkout 02/13/2016 11:28 AM Checkin 02/13/2016 10:22 AM Acuity 4 -Less Urgent Dispo Type * Discharged to Home or Self Care Arrival 02/13/2016 10:22 AM Reg Status Complete LOS 000 01:06 Address: [address] [place] [phone] Comment: PROVIDER INFORMATION Provider Role Provider Contact Time WALI BENNETT LPN ED Nurse 02/13/16 10:35 VIELKA ZAMUDIO PA-C ED Provider 02/13/16 10:48 DIAGNOSIS Contusion Leg Initial R Comment: PATIENT EDUCATION INFORMATION Instructions: Follow up: Source: [facility] POWERCHART Document Id: [id number] documented in this encounter Medications at Time of Discharge Medication Sig Dispensed Refills Start Date End Date multivitamin tablet Take 2 tablets by 0 3 mouth daily. FLUORIDE, SODIUM, Apply 1 application 0 3 12/31/2019 DENTAL topically 2 (two) times a day. documented as of this encounter Progress Notes Vielka Zamudio P.A.-C. - 02/13/2016 10:22 AM CDT [id number] CHIEF COMPLAINT/REASON FOR VISIT Right lower leg [...] ZAMUDIO PA-C On: 02/15/2016 09:24 AM Source: [facility] [email or web address] Document Id: [id number] documented in this encounter H&P Notes Wali [...] Information Given By : Patient Languages : Kiswahili Is Patient Female and 13-50 no hysterectomy : Yes Status : Patient denies Are you ? : No WALI BENNETT LPN 02/13/2016 10:36 CDT Subjective Pain Symptoms : Yes WALI BENNETT LPN 02/13/2016 10:36 CDT Dependent Habits Exposure to [...] : Occasionally Amount : pop WALI BENNETT OCEANOGRAPHIC METEOROLOGIST 02/13/2016 10:36 CDT Nutrition Nutrition Risk Factors by History Adult : None WALI BENNETT LPN 02/13/2016 10:36 CDT Functional Living Situation : halfway Current Daily Living Assistance : ADL's, Transportation WALI BENNETT OCEANOGRAPHIC METEOROLOGIST 02/13/2016 10:36 CDT Psychosocial Domestic Abuse Concerns : None Behavioral Health Screen/Safety Assmt : No Congregation Preference : No qualifying data available. WALI BENNETT LPN 02/13/2016 10:36 CDT Advance Directive Advanced Directives : No Advance Directive Additional Information : No WALI BENNETT LPN 02/13/2016 10:36 CDT Educ Needs Learning Style Preference Adult Grid Patient : None Family : None WALI BENNETT LPN 02/13/2016 10:36 CDT Source: [facility] POWERCHART Document Id: [id number] CDT!3 documented in this encounter ED Notes Varun Hilton R.N. - 02/13/2016 10:22 AM CDT ED Triage Assessment Document Has Been Updated ED Triage Assessment Entered On: 02/13/2016 10:25 CDT Performed On: 02/13/2016 10:22 CDT by VARUN HILTON RN Reason For Visit (As Of: 02/13/2016 10:25:09 CDT) Problems(Active) Atrioventricular canal (SNOMED CT :108399757 ) Name of Problem: Atrioventricular canal ; Onset Date:03/26/2013 ; Recorder: TOOTIE LOPEZ LPN; Confirmation: Confirmed ; Classification: Nursing ; Code: 131696827 ; Contributor System: PowerChart ; Last Updated: [...] Nursing ; Code: 746.5 ; Contributor System: SMS THL HoldingsChart ; Last Updated: 04/05/2013 10:25 CDT ; [...] Nursing ; Code: 286.9 ; Contributor System: SMS [employer]Chart ; Last Updated: 09/05/2013 11:40 CDT ; 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: Active ; Vocabulary: ICD-9-CM DVT, lower extremity (ICD-9-CM :453.40 ) Name of Problem: DVT, lower extremity ; Onset Date: 2006 ; Recorder: TOOTIE LOPEZ LPN; Confirmation: Confirmed ; Classification: Nursing ; Code: 453.40 ; Contributor System: Edkimo ; Last Updated: 04/05/2013 10:26 CDT ; Life Cycle Date: 04/05/2013 ; 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: Active ; Responsible Provider: TOOTIE LOPEZ LPN; Vocabulary: ICD-9-CM Gallstone Without Obstruction (ICD-9-CM :574.20 ) Name of Problem: Gallstone Without Obstruction ; Recorder: BELLA NULL MD; Confirmation: Confirmed ; Classification: Medical ; Code: 574.20 ; Contributor System: Edkimo ; Last Updated: 05/29/2014 11:11 URBAN GARDENING SPECIALIST ; 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: Active ; Responsible Provider: BELLA NULL MD; Vocabulary: ICD-9-CM Impaired Fasting Glucose (ICD-9-CM :790.21 ) Name of Problem: Impaired Fasting Glucose ; Onset Date:07/22/2010 ; Confirmation: Confirmed ; Classification: Medical ; Code: 790.21 ; Contributor System: Edkimo ; Last Updated: 06/06/2014 9:13 URBAN GARDENING SPECIALIST ; 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: Active ; Vocabulary: ICD-9-CM ; Co mments: - Impaired fasting glucose Irregular Menstrual Cycle (ICD-9-CM :626.4 ) Name of Problem: Irregular Menstrual Cycle ; Onset Date: 07/28/2010 ; Confirmation: Confirmed ; Classification: Medical ; Code: 626.4 ; Contributor System: [facility]_HX_PR_UPLOAD ; Last Updated: 09/21/2013 19:06 CDT ; 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: Active ; Vocabulary: ICD-9-CM ; Comments: - Irregular menses Mitral valve regurgitation NOS (ICD-9-CM :424.0 ) Name of Problem: Mitral valve regurgitation NOS ; Recorder: TOOTIE LOPEZ LPN; Confirmation: Confirmed ; Classification: Nursing ; Code: 424.0 ; Contributor System: Edkimo ; Last Updated: 04/05/2013 10:25 CDT ; Life Cycle Date: 04/05/2013 ; 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: Active ; Responsible Provider: TOOTIE LOPEZ LPN; Vocabulary: ICD-9-CM ; Comments: 04/05/2013 10:25 - TOOTIE LOPEZ LPN unknown date of dx Mixed Hyperlipidemia (ICD-9-CM :272.2 ) Name of Problem: Mixed Hyperlipidemia ; Onset Date: 07/22/2010 ; Confirmation: Confirmed ; Classification: Medical ; Code: 272.2 ; Contributor System: Edkimo; Last Updated: 06/06/2014 9:13 URBAN GARDENING SPECIALIST ; 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: Active ; [...] Merly Solomon ; Last Updated: 06/06/2014 9:13 URBAN GARDENING SPECIALIST ; 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: Active ; Vocabulary: ICD-9-CM ; Comments: - Phlebitis and thrombophlebitis of other deep vessels of lower extremities Primary Hypercoagulable State (ICD-9-CM :289.81 ) Name of Problem: Primary Hypercoagulable State ; Onset Date: 01/29/2008 ; Confirmation: Confirmed ; Classification: Medical ; Code: 289.81 ; Contributor System: [facility]_HX_PR_UPLOAD ; Last Updated: 09/21/2013 19:06 CDT ; 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: Active ; Vocabulary: ICD-9-CM ; Comments: - Protein S deficiency With elevated d-dimer Dr. Anna Riley rec: lifelong coumadin Psoriasis (ICD-9-CM :696.1 ) Name of Problem: Psoriasis ; Recorder: TOOTIE LOPEZ LPN; Confirmation: Confirmed ; Classification: Nursing ; Code: 696.1 ; Contributor System: Edkimo ; Last Updated: 04/05/2013 10:24 CDT ; [...] Nursing ; Code: 424.2 ; Contributor System: Sarabjit ; Last Updated: 04/05/2013 10:25 CDT ; [...] PNED ; Probability: 0 ; Diagnosis Code: [id number] Triage Chief Complaint Description : hx of blood clots. CUrrently takes coumadin. Last blood clot 8 years ago. Right leg pain. Mom has noted a hardened area next to the patients ankle. No known injury, recenttravel, or fever. Information Given By : Patient Present in Room During Exam/Procedure : Mother Mode of Arrival ED : Private vehicle, Ambulatory Track : Medical Languages : Kiswahili Patient Informed of Triage Location : Urgent [...] : 4 -Less Urgent Tracking Group : [facility] ED VARUN HILTON RN - 02/13/2016 10:22 CDT Source: [facility] Koubach[employer]CHART Document Id: [id number] CDT!25 documented in this encounter Plan of Treatment Upcoming Encounters Date Type Specialty Care Team Description 06/22/2022 Appointment Laboratory Medicine Rusty Vee M.D. [address] [place] [phone] 06/22/2022 Diagnostic Pulmonary Medicine Rusty Vee M.D. [address] [place] [phone] 06/22/2022 Diagnostic Pulmonary Medicine Rusty Vee M.D. [address] [place] [phone] 06/22/2022 Appointment Radiology Rusty Vee M.D. [address] [place] [phone] 06/23/2022 Clinical Communication Admitting/Central Scheduling 06/28/2022 Appointment Pulmonary Medicine Rusty Vee M.D. [address] [place] [phone] 06/28/2022 Appointment Pulmonary Medicine Rusty Vee M.D. [address] [place] [phone] documented as of this encounter Procedures Procedure [...] (ABNORMAL) Automated Differential (02/13/2016 11:03 AM CDT) [facility] Method Time Signature Absolute 2.94 1.70 - [...] M.S. LAB BLOOD ADD-ON Performing Organization Address City/State/[facility] Code Phon e Number POWERCHART D-Dimer (02/13/2016 [...] M.S. LAB BLOOD ADD-ON Performing Organization Address City/[facility] Code Phon e Number POWERCHART [...] X109L Erythrocytes 4.22 3.90 - POWERCHART 5.03 [id number] Hemoglobin 14.1 12.0 - POWERCHART 15.5 GDL [...]
--- OUTSIDE RECORDS SUMMARY | 2022-05-25 21:07 | XMS_ITS | Encounter Summary ---
:1975 Author Organization [facility] Address [address] [place] [address] Care Team Providers Name Role Phone Unavailable Primary Care Provider Unavailable Encounter Details Date Type Department Care Team Description 11/19/2015 Hospital Encounter HX [facility] Marsha Henriquez M.D. 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 - 11/19/2015 10:15 AM CDT Anticoagulation Patient [...] weeks Two weeks Plan completed by : KAHDAR Manning RN - 11/19/2015 10:15 CDT KHADAR BANDA [...] lackey LM /pharmacy KHADAR BANDA RN - 11/19/2015 10:15 CDT KHADAR BANDA RN - 11/19/2015 10:15 CDT KHADAR BANDA RN - 11/19/2015 10:15 CDT KHADAR BANDA RN - 11/19/2015 10:15 CDT Date : 04/17/2014 CDT 04/24/2014 CDT 05/01/2014 PHOSPHORIC ACID SUPERVISOR 05/15/2014 PHOSPHORIC ACID SUPERVISOR Location of INR sample : Lab [...] will trynoted dose called to mom Fabiola [phone] called to Fabiola/no changes Called to mother/Fabiola, not awareof any changes Recommend Recheck : One week One week Two weeks Two weeks Plan completed by : KHADAR HACKETT RN - 11/19/2015 10:15 CDT KHADAR BANDA RN - 11/19/2015 10:15 CDT KHADAR BANDA RN - 11/19/2015 10:15 CDT KHADAR BANDA RN - 11/19/2015 10:15 CDT Date : 06/03/2014 PHOSPHORIC ACID SUPERVISOR 06/05/2014 PHOSPHORIC ACID SUPERVISOR 06/10/2014 PHOSPHORIC ACID SUPERVISOR 06/11/2014 PHOSPHORIC ACID SUPERVISOR Location of INR sample : Lab [...] Called motherFabiola. Hue will be staying in [place] 2wks post-surgery & have INR drawn there. [...] lovenox tomorrow AM as ordered. INR in [place] for next several weeks as pt will be recovering there. Recommend Recheck : Other: depending on Dr. Henriquez's preop. Other: 06/18 Other: 06/13/14 Plan completed by : KHADAR SANDERS RN - 11/19/2015 10:15 CDT KHADAR BANDA RN - 11/19/2015 10:15 PATRICIAT KHADAR BANDA RN - 11/19/2015 10:15 PATRICIAT KHADAR BANDA RN - 11/19/2015 10:15 CDT Date : 06/14/2014 PHOSPHORIC ACID SUPERVISOR 06/14/2014 PHOSPHORIC ACID SUPERVISOR 06/16/2014 PHOSPHORIC ACID SUPERVISOR 06/23/2014 PHOSPHORIC ACID SUPERVISOR Location of INR sample : Clinic [...] Warfarin Dose : 20 20 Comment : [place] lab called with INR result from 06/13, reported they left a message with Dr. Henriquez and hadn't heard back, spoke with mother, Fabiola, and gave doses, continue Lovenox and repeat INR 06/16, message left with INR clinic in [place] to contact [facility] Please contact [facility] lab on 06/16 for result and may call Fabiola at [phone] with instructions call to Fabiola/will stop Lovenox injections and take noted dose/pt has an appt here in [place] 06/23 so will do lab appt here that day Called to Fabiola/ Hue will be back at [facility] by next draw. will have done on . no changes to meds/diet. Recommend Recheck : Two days One week Two weeks Plan completed by : KHADAR Mattson LM RN - 11/19/2015 10:15 CDT KHADAR BANDA RN - 11/19/2015 10:15 CDT HKADAR BANDA RN - 11/19/2015 10:15 CDT KHADAR BANDA RN - 11/19/2015 10:15 CDT Date : 07/10/2014 PHOSPHORIC ACID SUPERVISOR 07/17/2014 PHOSPHORIC ACID SUPERVISOR 07/31/2014 PHOSPHORIC ACID SUPERVISOR 09/11/2014 CDT Location of INR sample [...] : KHADAR Dumont RN - 11/19/2015 10:15 KHADAR HILL RN - 11/19/2015 10:15 PATRICIAT KHADAR BANDA [...] KHADAR SLOAN RN - 11/19/2015 10:15 CDT HKADAR BANDA RN - 11/19/2015 10:15 CDT KHADAR BANDA RN - 11/19/2015 10:15 CDT KHADAR BANDA RN - 11/19/2015 10:15 CDT Date : 04/09/2015 CDT 05/07/2015 PHOSPHORIC ACID SUPERVISOR 06/04/2015 PHOSPHORIC ACID SUPERVISOR 07/02/2015 PHOSPHORIC ACID SUPERVISOR Location of INR sample : Lab [...] completed by : KHADAR Dowell RN - 11/19/2015 10:15 CDT KHADAR BANDA RN - 11/19/2015 10:15 CDT KHADAR BANDA RN - 11/19/2015 10:15 CDT KHADAR BANDA RN - 11/19/2015 10:15 CDT Date : 08/06/2015 PHOSPHORIC ACID SUPERVISOR 09/17/2015 CDT 10/29/2015 CDT 11/12/2015 CDT [...] BANDA RN - 11/19/2015 10:15 CDT Source: [facility] [employer] Document Id: [id number] CDT!516 Miscellaneous - Khadar Banda R.N. - 11/19/2015 9:55 AM CDT Results Notification From: KHADAR BANDA RN ( Anticoagulation Nurse) To: Anticoagulation Nurse; Sent: 11/19/2015 09:55:55 CDT Show up: 11/19/2015 09:56:00 CDT Subject: Results Notification Results: Date Result Name Value Ref Range 11/19/2015 08:05 PT 25.7 second(s) (8.7 - 11.8) 11/19/2015 08:05 INR 2.3 INR (0.9 - 1.1) Source: [facility] [employer] Document Id: [id number] documented in this encounter Plan of Treatment Upcoming Encounters Date Type Specialty Care Team Description 06/22/2022 Appointment Laboratory Medicine Rusty Vee M.D. [address] [place] [phone] 06/22/2022 Diagnostic Pulmonary Medicine Rusty Vee M.D. [address] [place] [phone] 06/22/2022 Diagnostic Pulmonary Medicine Rusty Vee M.D. [address] [place] [phone] 06/22/2022 Appointment Radiology Rusty Vee M.D. [address] [place] [phone] 06/23/2022 Clinical Communication Admitting/Central Scheduling 06/28/2022 Appointment Pulmonary Medicine Rusty Vee M.D. [address] [place] [phone] 06/28/2022 Appointment Pulmonary Medicine Rusty Vee M.D. [address] [place] [phone] documented as of this encounter Procedures Procedure Name Priority Date/Time Associated Comments Diagnosis PROTHROMBIN TIME Routine 11/19/2015 8:05 AM Resul ts for this (PT), P CDT procedure are i n the results section. documented in this encounter Results (ABNORMAL) PT (Prothrombin Time) with INR (11/19/2015 8:05 AM CDT) [facility] Method Time Signature Prothrombin 25.7 (H) [...]
--- OUTSIDE RECORDS SUMMARY | 2022-05-25 21:07 | XMS_ITS | Encounter Summary ---
:1975 Author Organization [facility] Address [address] [place] [address] Care Team Providers Name Role Phone Unavailable Primary Care Provider Unavailable Encounter Details Date Type Department Care Team Description 10/29/2015 Hospital Encounter HX [facility] Marsha Henriquez M.D. [address] [place], [place] [address] (Wo rk) Social History [...] Date Recorded Female 05/03/2022 7:07 PM BUSINESS APPLICATIONS MANAGER documented as of this encounter Last [...] Notes Miscellaneous - Khadar Banda R.N. - 10/29/2015 10:35 AM CDT Anticoagulation Patient [...] completed by : KHADAR Manning RN - 10/29/2015 10:35 CDT KHADAR BANDA [...] lackey LM /pharmacy KHADAR BANDA RN - 10/29/2015 10:35 CDT KHADAR BANDA RN - 10/29/2015 10:35 CDT KHADAR BANDA RN - 10/29/2015 10:35 CDT KHADAR BANDA RN - 10/29/2015 10:35 CDT Date : 04/17/2014 CDT 04/24/2014 CDT 05/01/2014 BUSINESS APPLICATIONS MANAGER 05/15/2014 BUSINESS APPLICATIONS MANAGER Location of INR sample : Lab [...] will trynoted dose called to mom Fabiola [phone] called to Fabiola/no changes Called to mother/Fabiola, not awareof any changes Recommend Recheck : One week One week Two weeks Two weeks Plan completed by : MARIA GUADALUPE PRECIADO KHADAR BANDA RN - 10/29/2015 10:35 CDT KHADAR BANDA RN - 10/29/2015 10:35 CDT KHADAR BANDA RN - 10/29/2015 10:35 CDT KHADAR BANDA RN - 10/29/2015 10:35 CDT Date : 06/03/2014 BUSINESS APPLICATIONS MANAGER 06/05/2014 BUSINESS APPLICATIONS MANAGER 06/10/2014 BUSINESS APPLICATIONS MANAGER 06/11/2014 BUSINESS APPLICATIONS MANAGER Location of INR sample : Lab [...] Called motherFabiola. Hue will be staying in [place] 2wks post-surgery & have INR drawn there. [...] lovenox tomorrow AM as ordered. INR in [place] for next several weeks as pt will be recovering there. Recommend Recheck : Other: depending on Dr. Henriquez's preop. Other: 06/18 Other: 06/13/14 Plan completed by : KHADAR SANDERS RN - 10/29/2015 10:35 CDT KHADAR BANDA RN - 10/29/2015 10:35 CDT KHADAR BANDA RN - 10/29/2015 10:35 PATRICIAT KHADAR BANDA RN - 10/29/2015 10:35 CDT Date : 06/14/2014 BUSINESS APPLICATIONS MANAGER 06/14/2014 BUSINESS APPLICATIONS MANAGER 06/16/2014 BUSINESS APPLICATIONS MANAGER 06/23/2014 BUSINESS APPLICATIONS MANAGER Location of INR sample : Clinic [...] Warfarin Dose : 20 20 Comment : [place] lab called with INR result from 06/13, reported they left a message with Dr. Henriquez and hadn't heard back, spoke with mother, Fabiola, and gave doses, continue Lovenox and repeat INR 06/16, message left with INR clinic in [place] to contact [place] Please contact [facility] lab on 06/16 for result and may call Fabiola at [phone] with instructions call to Fabiola/will stop Lovenox injections and take noted dose/pt has an appt here in [place] 06/23 so will do lab appt here that day Called to Fabiola/ Hue will be back at [facility] by next draw. will have done on . no changes to meds/diet. Recommend Recheck : Two days One week Two weeks Plan completed by : KHADAR Mattson LM RN - 10/29/2015 10:35 CDT KHADAR BANDA RN - 10/29/2015 10:35 CDT KHADAR BANDA RN - 10/29/2015 10:35 PATRICIAT KHADAR BANDA RN - 10/29/2015 10:35 CDT Date : 07/10/2014 BUSINESS APPLICATIONS MANAGER 07/17/2014 BUSINESS APPLICATIONS MANAGER 07/31/2014 BUSINESS APPLICATIONS MANAGER 09/11/2014 CDT Location of INR sample [...] : KHADAR Dumont RN - 10/29/2015 10:35 KHADAR HILL RN - 10/29/2015 10:35 PATRICIAT KHADAR BANDA RN - 10/29/2015 10:35 KHADAR HILL RN - 10/29/2015 10:35 CDT Date : [...] week One week Plan completed by : KHDAAR Toro RN - 10/29/2015 10:35 CDT KHADAR [...] some Midol, no other changes/bleeding Called to Mom/Fbaiola, no changes Called to Mom/Fabiola, no changes Recommend Recheck : Other: 02/26/15 One week Two weeks Three weeks Plan completed by : KHADAR SLOAN RN - 10/29/2015 10:35 CDT KHADAR BANDA RN - 10/29/2015 10:35 CDT KHADAR BANDA RN - 10/29/2015 10:35 CDT KHADAR BANDA RN - 10/29/2015 10:35 CDT Date : 04/09/2015 CDT 05/07/2015 BUSINESS APPLICATIONS MANAGER 06/04/2015 BUSINESS APPLICATIONS MANAGER 07/02/2015 BUSINESS APPLICATIONS MANAGER Location of INR sample : Lab [...] - 10/29/2015 10:35 CDT Date : 08/06/2015 BUSINESS APPLICATIONS MANAGER 09/17/2015 CDT 10/29/2015 CDT Location of INR [...] Two weeks Plan completed by : KHADAR Aquino RN - 10/29/2015 10:35 CDT KHADAR BANDA [...] BANDA RN - 10/29/2015 10:35 CDT Source: [facility] POWERCHART Document Id: [id number] CDT![id number] Miscellaneous - Khadar Banda R.N. - 10/29/2015 10:09 AM CDT Results Notification From: KHADAR BANDA RN ( Anticoagulation Nurse) To: Anticoagulation Nurse; Sent: 10/29/2015 10:09:21 CDT Show up: 10/29/2015 10:10:00 CDT Subject: Results Notification Results: Date Result Name Value Ref Range 10/29/2015 08:00 PT 37.9 second(s) (8.7 - 11.8) 10/29/2015 08:00 INR 3.3 INR (0.9 - 1.1) Source: [facility] POWERCHART Document Id: [id number] Electronically signed by Lay, [facility] Foreign Legal Consultant [id number] at 11/19/2016 1:07 PM CDT documented in this encounter Plan of Treatment Upcoming Encounters Date Type Specialty Care Team Description 06/22/2022 Appointment Laboratory Medicine Rusty Vee M.D. [address] [place] [phone] 06/22/2022 Diagnostic Pulmonary Medicine Rusty Vee M.D. [address] [place] [phone] 06/22/2022 Diagnostic Pulmonary Medicine Rusty Vee M.D. [address] [place] [phone] 06/22/2022 Appointment Radiology Rusty Vee M.D. [address] [place] [phone] 06/23/2022 Clinical Communication Admitting/Central Scheduling 06/28/2022 Appointment Pulmonary Medicine Rusty Vee M.D. [address] [place] [phone] 06/28/2022 Appointment Pulmonary Medicine Rusty Vee M.D. [address] [place] [phone] documented as of this encounter Procedures Procedure Name Priority Date/Time Associated Comments Diagnosis PROTHROMBIN TIME Routine 10/29/2015 8:00 AM Resul ts for this (PT), P CDT procedure are i n the results section. documented in this encounter Results (ABNORMAL) PT (Prothrombin Time) with INR (10/29/2015 8:00 AM CDT) [facility] Method Time Signature Prothrombin 37.9 (H) [...]
--- OUTSIDE RECORDS SUMMARY | 2022-05-25 21:07 | XMS_ITS | Encounter Summary ---
:1975 Author Organization [facility] Address [address] [place] [address] Care Team Providers Name Role Phone Unavailable Primary Care Provider Unavailable Encounter Details Date Type Department Care Team Description 02/08/2016 Hospital Encounter HX [facility]ILY[facility] Marsha Henriquez M.D. 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 send letter with results. mom wants to [...] and hyperglycemia. 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 Antibodies were checked and were negative, so she does not have Mary Ann's thyroiditis. No further recheck necessary. but since she has wt gain that her mom is concerned about will check another tsh. Her hyperlipidemia is diet controlled. She had heart surgery at [place] on March 29, 2013. no period for 6 months. Electronically Signed By: TASHA HENRIQUEZ MD On: 02/08/2016 05:24 PM Source: [facility] POWERCHART Document Id: [id number] documented in this encounter Procedure Notes Gamal Cheung L.P.N. - 02/08/2016 5:22 PM CDT Ear Irrigation Ear Irrigation Entered On: 02/08/2016 17:23 CDT Performed On: 02/08/2016 17:22 CDT by GAMAL CHEUNG L.P.N. Ear Irrigation Ear Irrigation Location : Bilateral Ear Irrigation Technique Used : Ear washer Ear Irrigation Solution Used : Warm water Ear Irrigation Results : large amounts ear cerumen cleaned out of left ear, moderate amount of rightear Post irrigation ear canal evaluation : Patent Post Irrigation Tympanic Membrane Eval : Intact GAMAL CHEUNG L.P.N. - 02/08/2016 17:22 CDT Source: [facility] [employer] Document Id: [id number] CDT!8 documented in this encounter Miscellaneous Notes Miscellaneous - Tasha Henriquez M.D. - 02/08/2016 5:17 PM CDT Ambulatory Discharge Medication List [facility] [address], [address] [place], [place] [id number] Visit Information Name: DORITA SHEFFIELD [facility] Number: [id number] Visit Date: 02/08/2016 17:17:21 [...] 1 luther, Topical, two times a day [facility] Prescription (NEW MED) See Instructions Rx mouth wash - daily multivitamin (multivitamin) 1 tab, Oral, once a day warfarin (warfarin 5 mg oral tablet) See Instructions 5mg Mon, 2.5mg all other days or as directed by the INR Clinic as of 12/30/2015 Routed to [address] [place], [place] [id number] Stop Taking the Following Medications: Medication list [...] MD Signed On:08-FEB-2016 17:17:19 Additional Information: Source: [facility] POWERCHART Document Id: [id number] Miscellaneous - Tasha Henriquez M.D. - 02/08/2016 5:17 PM CDT Ambulatory Patient Summary [facility] [address], [address] [place], [place] [id number] Visit Information Name: DORITA SHEFFIELD [facility] Number: [id number] Current Date: 02/08/2016 17:17:22 [...] 1 luther, Topical, two times a day [facility] Prescription (NEW MED) See Instructions Rx mouth wash - daily multivitamin (multivitamin) 1 tab, Oral, once a day warfarin (warfarin 5 mg oral tablet) See Instructions 5mg Mon, 2.5mg all other days or as directed by the INR Clinic as of 12/30/2015 Routed to [place] [address] [place], [place] [id number] Stop Taking the Following Medications: Medication list [...] Appointments Date Time Location Provider 02/25/2016 08:00 [facility] Lab [facility] Lab Offsite Attention: Contact your [...] if you dont have one. Go to [email or web address] and click on Create Your Account. Then, follow the directions to complete the online form. Youll be asked for your [facility] number which you can find at the top of this document. Your Goals/Additional instructions: Source: [employer] Document Id: [id number] Miscellaneous - Shruti Raman L.P.N. - 02/08/2016 4:28 PM CDT Health Assessment Health Assessment Entered On: 02/08/2016 16:30 CDT Performed On: 02/08/2016 16:28 CDT by SHRUTI RAMAN LPN Health Assessment Complete Health Assessment Complete [...] Buddhism Preference : No qualifying data available. SHRUTI RAMAN LPN - 02/08/2016 16:28 CDT Advance Directive Advanced Directives : No Advance Directive Additional Information : No SHRUTI RAMAN LPN - 02/08/2016 16:28 CDT Educ Needs Learning Style Preference Adult Grid Patient : None Family : None SHRUTI RAMAN LPN - 02/08/2016 16:28 CDT [facility] Document Id: [id number] CDT!33 Miscellaneous - Shruti Raman L.P.N. - 02/08/2016 4:20 PM CDT Adult Lung Splitter Intake/History Adult Lung Splitter Intake/History Entered On: 02/08/2016 16:24 CDT Performed On: 02/08/2016 16:20 CDT by SHRUTI RAMAN ENVIRONMENTAL PROFESSIONAL Intake Peripheral Pulse Rate : 60 /min [...] Information Given By : Patient Languages : Bahamian Is Patient Female and 13-50 no hysterectomy [...] RAMAN LPN - 02/08/2016 16:20 CDT Source: [facility] POWERCHART Document Id: [id number] CDT!28 documented in this encounter Plan of Treatment Upcoming Encounters Date Type Specialty Care Team Description 06/22/2022 Appointment Laboratory Medicine Rusty Vee M.D. [address] [place] [phone] 06/22/2022 Diagnostic Pulmonary Medicine Rusty Vee M.D. [address] [place] [phone] 06/22/2022 Diagnostic Pulmonary Medicine Rusty Vee M.D. [address] [place] [phone] 06/22/2022 Appointment Radiology Rusty Vee M.D. [address] [place] [phone] 06/23/2022 Clinical Communication Admitting/Central Scheduling 06/28/2022 Appointment Pulmonary Medicine Rusty Vee M.D. [address] [place] [phone] 06/28/2022 Appointment Pulmonary Rusty Mattson M.D. [address] [place] [phone] documented as of this encounter Visit Diagnoses Not on filedocumented in this encounter
--- OUTSIDE RECORDS SUMMARY | 2022-05-25 21:07 | XMS_ITS | Encounter Summary ---
:[address] [facility] Address [address] [place] [address] Care Team Providers Name Role Phone Unavailable Primary Care Provider Unavailable Encounter Details Date Type Department Care Team Description 07/09/2015 Hospital Encounter HX [facility] Ximena Suarez D.P.M. 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 FLUORIDE, SODIUM, Apply 1 application 0 3 12/31/2019 DENTAL topically 2 (two) times a day. documented as of this encounter Progress Notes Ximena Oneill D.P.M. - 07/09/2015 4:13 PM CST Clinic Full Note CHIEF COMPLAINT/REASON FOR VISIT left foot fasciitis/heel pain HISTORY OF PRESENT ILLNESS This patient is 40 years old and presents today for a medical visit. This patient has the followingissues to go over: left heel pain. She has noted pain to her left heel since after [place] (3-4 weeks). MEDICATIONS multivitamin, 1 tab, PO, [...] Dry plaques to side or right foot. [place]ott right 5th toe Vascular: Pedal dorsal pulse normal; posterior pulse normal. Temperature proximal to distal warm towarm. Pitting edema to legs. IMPRESSION/REPORT/PLAN Fasciitis Plantar Ordered: OV New Pt Level 2 - 12089 - 20 min Pain Heel L Ordered: OV New Pt Level 2 - 14820 - 20 min Discussed with patient and guardians clinical findings and symptoms. Dorita has clinical findings for plantar fasciitis. She is fitted with Lynco inserts and night splint and these are dispensed today. Hand out provided about home icing and stretching. Assessment will be ongoing with changes in treatment as indicated. Follow with podiatry as needed. All questions are answered. Electronically Signed By: XIMENA ONEILL DPM On: 07/09/2015 04:15 PM Source: [facility] POWERCHART Document Id: [id number] PEELING MACHINE OPERATOR documented in this encounter Nursing Notes Ximena Oneill D.P.M. - 07/09/2015 4:08 PM CST Ambulatory [...] optimal arch support. While you can buy phz-nic-jmgef shoe inserts inexpensively, the best ones are those made for you by a prepress technician (learning technologies specialist). Night splints (provided by a prepress technician) keep the heel stretched out while you [...] Follow Up with your doctor or a prepress technician (learning technologies specialist) as advised by our staff. Call [...] swelling or redness with increasing pain ?? [phone] [facility], [address] [place] [address], [place] [address]. All rights reserved. This information is not intended as a substitute for professional medical care. Always follow your healthcare professional's instructions. Source: [facility] POWERCHART Document Id: [id number] PEELING MACHINE OPERATOR documented in this encounter Miscellaneous Notes Miscellaneous - Ximena Oneill D.PVicki - 07/09/2015 4:16 PM POLE PEELING MACHINE OPERATOR Ambulatory Patient Summary [address] [phone] Visit Information Name: DROITA SHEFFIELD [facility] Number: [id number] Current Date: 07/09/2015 16:16:13 Physicians Attending Provider: XIMENA ONEILL DPJuan Primary Care Provider: TASHA HENRIQUEZ [...] in case of emergency. Electronically Signed By: XIMENA ONEILL DPM Signed On:09-JUL-2015 16:16:06 Your Allergies [...] Appointments Date Time Location Provider 08/06/2015 08:00 [facility] Offsite Attention: Contact your local [...] optimal arch support. While you can buy rdl-sds-ksebb shoe inserts inexpensively, the best ones are those made for you by a prepress technician (learning technologies specialist). Night splints (provided by a prepress technician) keep the heel stretched out while you [...] Follow Up with your doctor or a prepress technician (learning technologies specialist) as advised by our staff. Call [...] swelling or redness with increasing pain ?? [phone] [facility], [address] [place] [address], [place] [address]. All rights reserved. This information is not [...] if you dont have one. Go to [email or web address] and click on Create Your Account. Then, follow the directions to complete the online form. Youll be asked for your [facility] number which you can find at the top of this document. Your Goals/Additional instructions: Source: [facility] POWERCHART Document Id: [id number] PEELING MACHINE OPERATOR Miscellaneous - Ximena Oneill, D.P.M. - 07/09/2015 4:16 PM POLE PEELING MACHINE OPERATOR Ambulatory Discharge Medication List [facility] [address] [place], [place] [phone] Visit Information Name: DORITA SHEFFIELD [facility] Number: [id number] Visit Date: 07/09/2015 16:16:11 Attending Provider: XIMENA ONEILL DPM Primary Care Provider: TASHA HENRIQUEZ MD NETTIE, DORITA FROST has been given the following [...] 1 luther, Topical, two times a day [facility] Prescription (NEW MED) See Instructions Rx mouth [...] in case of emergency. Electronically Signed By: XIMENA ONEILL DPM Signed On:09-JUL-2015 16:16:06 Additional Information: Source: [facility] POWERCHART Document Id: [id number] PEELING MACHINE OPERATOR Miscellaneous - Kell Roy CMichaelMEstrella - 07/09/2015 3:22 PM CST Adult Ditch Digger Intake/History Adult Ditch Digger Intake/History Entered On: 07/09/2015 15:25 POLE PEELING MACHINE OPERATOR Performed On: 07/09/2015 15:22 POLE PEELING MACHINE OPERATOR by KELL ROY Intake Chief Complaint : left foot fasciitis/heel pain Height : 147 cm(Converted to: 4 ft 10 inch(es), 58 inch(es)) KELL ROY - 07/09/2015 15:22 POLE PEELING MACHINE OPERATOR General Info Information Given By : Patient Languages : Kittitian Is Patient Female and 13-50 no hysterectomy : Yes Status : Patient denies Are you ? : No KELL ROY - 07/09/2015 15:22 POLE PEELING MACHINE OPERATOR Subjective Pain Symptoms : Yes CASSY KELL - 07/09/2015 15:22 POLE PEELING MACHINE OPERATOR Pain Scale Pain Scale Verbal 0-10 : Open KESHA ROYGY - 07/09/2015 15:22 POLE PEELING MACHINE OPERATOR Pain Pain Assessment Grid Pain 1 Intensity : 8 Comment : end of work day KESHA ROYGY - 07/09/2015 15:22 POLE PEELING MACHINE OPERATOR Dependent Habits Exposure to Tobacco Smoke : Other: never smoker Smoking Status : Never smoker Tobacco 2A : No Tobacco Use/Currently Using : No Tobacco Use/Last 30 Days : No Tobacco Use/Last 12 months : No CASSY KELL - 07/09/2015 15:22 POLE PEELING MACHINE OPERATOR Source: [facility] [employer] Document Id: [id number] POLE PEELING MACHINE OPERATOR!26 PEELING MACHINE OPERATOR documented in this encounter Plan of Treatment Upcoming Encounters Date Type Specialty Care Team Description 06/22/2022 Appointment Laboratory Medicine Rusty Vee M.D. [address] [place] [phone] 06/22/2022 Diagnostic Pulmonary Medicine Rusty Vee M.D. [address] [place] [phone] 06/22/2022 Diagnostic Pulmonary Medicine Rusty Vee M.D. [address] [place] [phone] 06/22/2022 Appointment Radiology Rusty Vee M.D. [address] [place] [phone] 06/23/2022 Clinical Communication Admitting/Central Scheduling 06/28/2022 Appointment Pulmonary Medicine Rusty Vee M.D. [address] [place] [phone] 06/28/2022 Appointment Pulmonary Medicine Rusty Vee M.D. [address] [place] [phone] documented as of this encounter Visit Diagnoses Not on filedocumented in this encounter
--- OUTSIDE RECORDS SUMMARY | 2022-05-25 21:07 | XMS_ITS | Encounter Summary ---
:1975 Author Organization [facility] Address [address] [place] [address] Care Team Providers Name Role Phone Unavailable Primary Care Provider Unavailable Encounter Details Date Type Department Care Team Description 04/09/2015 Hospital Encounter HX [facility] Marsha Henriquez M.D. 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 - 04/09/2015 10:02 AM CDT Anticoagulation Patient [...] JM KHADAR Mae RN - 04/09/2015 10:02 CDT KHADAR BANDA [...] lackey LM /pharmacy KHADAR BANDA RN - 04/09/2015 10:02 CDT KHADAR BANDA RN - 04/09/2015 10:02 CDT KHADAR BANDA RN - 04/09/2015 10:02 CDT KHADAR BANDA RN - 04/09/2015 10:02 CDT Date : 04/17/2014 CDT 04/24/2014 CDT 05/01/2014 NUCLEAR REACTOR ENGINEER 05/15/2014 NUCLEAR REACTOR ENGINEER Location of INR sample : Lab [...] will trynoted dose called to mom Fabiola [phone] called to Fabiola/no changes Called to mother/Fabiola, not awareof any changes Recommend Recheck : One week One week Two weeks Two weeks Plan completed by : KHADAR HACKETT RN - 04/09/2015 10:02 CDT KHADAR BANDA RN - 04/09/2015 10:02 CDT KHADAR BANDA RN - 04/09/2015 10:02 CDT KHADAR BANDA RN - 04/09/2015 10:02 CDT Date : 06/03/2014 NUCLEAR REACTOR ENGINEER 06/05/2014 NUCLEAR REACTOR ENGINEER 06/10/2014 NUCLEAR REACTOR ENGINEER 06/11/2014 NUCLEAR REACTOR ENGINEER Location of INR sample : Lab [...] Called motherFabiola. Hue will be staying in [place] 2wks post-surgery & have INR drawn there. [...] lovenox tomorrow AM as ordered. INR in [place] for next several weeks as pt will be recovering there. Recommend Recheck : Other: depending on Dr. Henriquez's preop. Other: 06/18 Other: 06/13/14 Plan completed by : KHADAR SANDERS RN - 04/09/2015 10:02 PATRICIAT KHADAR BANDA RN - 04/09/2015 10:02 KHADAR HILL RN - 04/09/2015 10:02 KHADAR HILL RN - 04/09/2015 10:02 CDT Date : 06/14/2014 NUCLEAR REACTOR ENGINEER 06/14/2014 NUCLEAR REACTOR ENGINEER 06/16/2014 NUCLEAR REACTOR ENGINEER 06/23/2014 NUCLEAR REACTOR ENGINEER Location of INR sample : Clinic [...] Warfarin Dose : 20 20 Comment : [place] lab called with INR result from 06/13, reported they left a message with Dr. Henriquez and hadn't heard back, spoke with mother, Fabiola, and gave doses, continue Lovenox and repeat INR 06/16, message left with INR clinic in [place] to contact [facility] Please contact [facility] lab on 06/16 for result and may call Fabiola at [phone] with instructions call to Fabiola/will stop Lovenox [...] KHADAR Mattson LM, RN - 04/09/2015 10:02 KHADAR HILL RN - 04/09/2015 10:02 KHADAR HILL RN - 04/09/2015 10:02 KHADAR HILL RN - 04/09/2015 10:02 CDT Date : 07/10/2014 NUCLEAR REACTOR ENGINEER 07/17/2014 NUCLEAR REACTOR ENGINEER 07/31/2014 NUCLEAR REACTOR ENGINEER 09/11/2014 CDT Location of INR sample [...] : KHADAR Dumont RN - 04/09/2015 10:02 KHADAR HILL RN [...] : KHADAR Vargas RN - 04/09/2015 10:02 CDT KHADAR BANDA [...] BANDA RN - 04/09/2015 10:02 CDT [facility] Document Id: [id number] CDT!436 Miscellaneous - Khadar Banda R.N. - 04/09/2015 9:58 AM CDT Results Notification From: KHADAR BANDA RN ( Anticoagulation Nurse) To: Anticoagulation Nurse; Sent: 04/09/2015 09:58:19 CDT Show up: 04/09/2015 09:59:00 CDT Subject: Results Notification Results: Date Result Name Value Ref Range 04/09/2015 09:00 PT 30.8 second(s) 04/09/2015 09:00 INR 2.7 INR (0.8 - 1.1) Source: [facility] POWERCHART Document Id: [id number] Electronically signed by Conversion, [facility] Flying Instructor [id number] at 11/21/2016 4:16 AM CDT documented in this encounter Plan of Treatment Upcoming Encounters Date Type Specialty Care Team Description 06/22/2022 Appointment Laboratory Medicine Rusty Vee M.D. [address] [place] [phone] 06/22/2022 Diagnostic Pulmonary Medicine Rusty Vee M.D. [address] [place] [phone] 06/22/2022 Diagnostic Pulmonary Medicine Rusty Vee M.D. [address] [place] [phone] 06/22/2022 Appointment Radiology Rusty Vee M.D. [address] [place] [phone] 06/23/2022 Clinical Communication Admitting/Central Scheduling 06/28/2022 Appointment Pulmonary Medicine Rusty Vee M.D. [address] [place] [phone] 06/28/2022 Appointment Pulmonary Medicine Rusty Vee M.D. [address] [place] [phone] documented as of this encounter Procedures Procedure Name Priority Date/Time Associated Comments Diagnosis PROTHROMBIN TIME Routine 04/09/2015 9:00 AM Resul ts for this (PT), P CDT procedure are i n the results section. documented in this encounter Results (ABNORMAL) PT (Prothrombin Time) with INR (04/09/2015 9:00 AM CDT) [facility] Method Time Signature Prothrombin 30.8 SECONDS POWERCHART [...]
--- OUTSIDE RECORDS SUMMARY | 2022-05-25 21:07 | XMS_ITS | Encounter Summary ---
:1975 Author Organization [facility] Address [address] [place] [address] Care Team Providers Name Role Phone Unavailable Primary Care Provider Unavailable Encounter Details Date Type Department Care Team Description 11/12/2015 Hospital Encounter HX [facility] Marsha Henriquez M.D. [address] [place], [place] [address] (Wo rk) Social History [...] at Date Recorded Female 05/03/2022 7:07 PM ELECTRICIAN SUPERVISOR documented as of this encounter Last [...] completed by : WALI Tracy RN - 11/12/2015 10:18 CDT WALI MCCLELLAN RN - 11/12/2015 10:18 CDT WAIL MCCLELLAN RN - 11/12/2015 10:18 CDT WALI [...] a long time, no bleeding now left [facility] for Fabiola,call if changes [...] lackey LM /pharmacy WALI MCCLELLAN RN - 11/12/2015 10:18 CDT WALI MCCLELLAN RN - 11/12/2015 10:18 CDT WALI MCCLELLAN RN - 11/12/2015 10:18 CDT WALI MCCLELLAN RN - 11/12/2015 10:18 CDT Date : 04/17/2014 CDT 04/24/2014 CDT 05/01/2014 ELECTRICIAN SUPERVISOR 05/15/2014 ELECTRICIAN SUPERVISOR Location of INR sample : Lab [...] will trynoted dose called to mom Fabiola [phone] called to Fabiola/no changes Called to mother/Fabiola, not awareof any changes Recommend Recheck : One week One week Two weeks Two weeks Plan completed by : MARIA GUADALUPE PRECIADO WALI MCCLELLAN RN - 11/12/2015 10:18 CDT WALI MCCLELLAN RN - 11/12/2015 10:18 CDWALI OGLESBY RN - 11/12/2015 10:18 CDT WALI MCCLELLAN RN - 11/12/2015 10:18 CDT Date : 06/03/2014 ELECTRICIAN SUPERVISOR 06/05/2014 ELECTRICIAN SUPERVISOR 06/10/2014 ELECTRICIAN SUPERVISOR 06/11/2014 ELECTRICIAN SUPERVISOR Location of INR sample : Lab [...] Called motherFabiola. Hue will be staying in [place] 2wks post-surgery & have INR drawn there. [...] lovenox tomorrow AM as ordered. INR in [place] for next several weeks as pt will be recovering there. Recommend Recheck : Other: depending on Dr. Henriquez's preop. Other: 06/18 Other: 06/13/14 Plan completed by : WALI TYLER RN - 11/12/2015 10:18 CDT WALI MCCLELLAN RN - 11/12/2015 10:18 CDT WALI MCCLELLAN RN - 11/12/2015 10:18 CDT WALI MCCLELLAN RN - 11/12/2015 10:18 CDT Date : 06/14/2014 ELECTRICIAN SUPERVISOR 06/14/2014 ELECTRICIAN SUPERVISOR 06/16/2014 ELECTRICIAN SUPERVISOR 06/23/2014 ELECTRICIAN SUPERVISOR Location of INR sample : Clinic [...] Warfarin Dose : 20 20 Comment : [place] lab called with INR result from 06/13, reported they left a message with Dr. Henriquez and hadn't heard back, spoke with Fabiola granados, and gave doses, continue Lovenox and repeat INR 06/16, message left with INR clinic in [place] to contact CF Please contact [facility] lab on 06/16 for result and may call Fabiola at [phone] with instructions call to Fabiola/will stop Lovenox injections and take noted dose/pt has an appt here in [place] 06/23 so will do lab appt here that day Called to Fabiola/ Hue will be back at [place] [...] - 11/12/2015 10:18 CDT Date : 07/10/2014 ELECTRICIAN SUPERVISOR 07/17/2014 ELECTRICIAN SUPERVISOR 07/31/2014 ELECTRICIAN SUPERVISOR 09/11/2014 CDT Location of INR sample [...] per Mom/nochanges or missed doses Called to Mom/Fabiloa, no changes, rev'd w/JHalvorsen/Pharmacy called to Mom/Fabiola, [...] 10:18 CDT Date : 04/09/2015 CDT 05/07/2015 ELECTRICIAN SUPERVISOR 06/04/2015 ELECTRICIAN SUPERVISOR 07/02/2015 ELECTRICIAN SUPERVISOR Location of INR sample : Lab [...] - 11/12/2015 10:18 CDT Date : 08/06/2015 ELECTRICIAN SUPERVISOR 09/17/2015 CDT 10/29/2015 CDT 11/12/2015 CDT [...] MCCLELLAN RN - 11/12/2015 10:18 CDT Source: [facility] POWERCHART Document Id: [id number] CDT![id number] Miscellaneous - Wali Mcclellan - 11/12/2015 [...] INR 3.1 INR (0.9 - 1.1) Source: [facility] POWERCHART Document Id: [id number] Electronically signed by Conversion, [facility] Saddle Stitching Machine Operator [id number] at 11/19/2016 2:20 PM CDT documented in this encounter Plan of Treatment Upcoming Encounters Date Type Specialty Care Team Description 06/22/2022 Appointment Laboratory Medicine Rusty Vee M.D. [address] [place] [phone] 06/22/2022 Diagnostic Pulmonary Medicine Rusty Vee M.D. [address] [place] [phone] 06/22/2022 Diagnostic Pulmonary Medicine Rusty Vee M.D. [address] [place] [phone] 06/22/2022 Appointment Radiology Rusty Vee M.D. [address] [place] [phone] 06/23/2022 Clinical Communication Admitting/Central Scheduling 06/28/2022 Appointment Pulmonary Medicine Rusty Vee M.D. [address] [place] [phone] 06/28/2022 Appointment Pulmonary Medicine Rusty Vee M.D. [address] [place] [phone] documented as of this encounter Procedures Procedure Name Priority Date/Time Associated Comments Diagnosis PROTHROMBIN TIME Routine 11/12/2015 8:01 AM Resul ts for this (PT), P CDT procedure are i n the results section. documented in this encounter Results (ABNORMAL) PT (Prothrombin Time) with INR (11/12/2015 8:01 AM CDT) [facility] Method Time Signature Prothrombin 34.6 (H) [...]
--- OUTSIDE RECORDS SUMMARY | 2022-05-25 21:07 | XMS_ITS | Encounter Summary ---
:1975 Author Organization [facility] Address [address] [place] [address] Care Team Providers Name Role Phone Unavailable Primary Care Provider Unavailable Encounter Details Date Type Department Care Team Description 12/03/2015 Hospital Encounter HX [facility] Marsha Henriquez M.D. [address] [place], [place] [address] (Wo rk) Social History [...] at Date Recorded Female 05/03/2022 7:07 PM FLIGHT SIMULATOR TEACHER documented as of this encounter Last Filed [...] completed by : WALI Tracy RN - 12/03/2015 11:18 CDT WALI MCCLELLAN [...] changes, did have a pimple a couple of weeks ago that bled for a long time, no bleeding now left [facility] for Fabiola,call if changes Recommend [...] lackey LM /pharmacy WALI MCCLELLAN RN - 12/03/2015 11:18 CDT WALI MCCLELLAN RN - 12/03/2015 11:18 CDT WALI MCCLELLAN RN - 12/03/2015 11:18 CDT WALI MCCLELLAN RN - 12/03/2015 11:18 CDT Date : 04/17/2014 CDT 04/24/2014 CDT 05/01/2014 FLIGHT SIMULATOR TEACHER 05/15/2014 FLIGHT SIMULATOR TEACHER Location of INR sample : Lab [...] will trynoted dose called to mom Fabiola [phone] called to Fabiola/no changes Called to mother/Fabiola, not awareof any changes Recommend Recheck : One week One week Two weeks Two weeks Plan completed by : MARIA GUADALUPE PRECIADO WALI MCCLELLAN RN - 12/03/2015 11:18 CDT WALI MCCLELLAN RN - 12/03/2015 11:18 CDT WALI MCCLELLAN RN - 12/03/2015 11:18 CDT WALI MCCLELLAN RN - 12/03/2015 11:18 CDT Date : 06/03/2014 FLIGHT SIMULATOR TEACHER 06/05/2014 FLIGHT SIMULATOR TEACHER 06/10/2014 FLIGHT SIMULATOR TEACHER 06/11/2014 FLIGHT SIMULATOR TEACHER Location of INR sample : Lab [...] Called motherFabiola. Hue will be staying in [place] 2wks post-surgery & have INR drawn there. [...] lovenox tomorrow AM as ordered. INR in [place] for next several weeks as pt will be recovering there. Recommend Recheck : Other: depending on Dr. Henriquez's preop. Other: 06/18 Other: 06/13/14 Plan completed by : WALI TYLER RN - 12/03/2015 11:18 CDT WALI MCCLELLAN RN - 12/03/2015 11:18 CDT WALI MCCLELLAN RN - 12/03/2015 11:18 CDT WALI MCCLELLAN RN - 12/03/2015 11:18 CDT Date : 06/14/2014 FLIGHT SIMULATOR TEACHER 06/14/2014 FLIGHT SIMULATOR TEACHER 06/16/2014 FLIGHT SIMULATOR TEACHER 06/23/2014 FLIGHT SIMULATOR TEACHER Location of INR sample : Clinic [...] Warfarin Dose : 20 20 Comment : [place] lab called with INR result from 06/13, reported they left a message with Dr. Henriquez and hadn't heard back, spoke with motherFabiola, and gave doses, continue Lovenox and repeat INR 06/16, message left with INR clinic in [place] to contact CF Please contact [facility] lab on 06/16 for result and may call Fabiola at [phone] with instructions call to Fabiola/will stop Lovenox injections and take noted dose/pt has an appt here in [place] 06/23 so will do lab appt here that day Called to Fabiola/ Hue will be back at [facility] by next draw. will have done on . no changes to meds/diet. Recommend Recheck : Two days One week Two weeks Plan completed by : WALI Steven LM, RN - 12/03/2015 11:18 CDT WALI MCCLELLAN RN - 12/03/2015 11:18 CDT WALI MCCLELLAN RN - 12/03/2015 11:18 CDT WALI MCCLELLAN RN - 12/03/2015 11:18 CDT Date : 07/10/2014 FLIGHT SIMULATOR TEACHER 07/17/2014 FLIGHT SIMULATOR TEACHER 07/31/2014 FLIGHT SIMULATOR TEACHER 09/11/2014 CDT Location of INR sample [...] 11:18 CDT Date : 04/09/2015 CDT 05/07/2015 FLIGHT SIMULATOR TEACHER 06/04/2015 FLIGHT SIMULATOR TEACHER 07/02/2015 FLIGHT SIMULATOR TEACHER Location of INR sample : Lab [...] - 12/03/2015 11:18 CDT Date : 08/06/2015 FLIGHT SIMULATOR TEACHER 09/17/2015 CDT 10/29/2015 CDT 11/12/2015 CDT [...] MCCLELLAN RN - 12/03/2015 11:18 CDT Source: [facility] [employer] Document Id: [id number] CDT!527 Miscellaneous - Meli Campo R.N. - [...] INR 2.7 INR (0.9 - 1.1) Source: [facility] POWERCHART Document Id: [id number] Electronically signed by [facility] Cabbage Salter [id number] at 11/19/2016 9:11 PM CDT documented in this encounter Plan of Treatment Upcoming Encounters Date Type Specialty Care Team Description 06/22/2022 Appointment Laboratory Medicine Rusty Vee M.D. [address] [place] [phone] 06/22/2022 Diagnostic Pulmonary Medicine Rusty Vee M.D. [address] [place] [phone] 06/22/2022 Diagnostic Pulmonary Medicine Rusty Vee M.D. [address] [place] [phone] 06/22/2022 Appointment Radiology Rusty Vee M.D. [address] [place] [address], [place] [phone] 06/23/2022 Clinical Communication Admitting/Central Scheduling 06/28/2022 Appointment Pulmonary Medicine Rusty Vee M.D. [address] [place] [phone] 06/28/2022 Appointment Pulmonary Medicine Rusty Vee M.D. [address] [place] [phone] documented as of this encounter Procedures Procedure Name Priority Date/Time Associated Comments Diagnosis PROTHROMBIN TIME Routine 12/03/2015 7:50 AM Resul ts for this (PT), P CDT procedure are i n the results section. documented in this encounter Results (ABNORMAL) PT (Prothrombin Time) with INR (12/03/2015 7:50 AM CDT) [facility] gist Method Time Signature Prothrombin 30.7 (H) 8.7 [...] Volume Laterality Blood 12/03/2015 7:50 AM CDT Tasha Henriquez M.D. LAB BLOOD ADD-ON Performing Organization Address City/State/ZIP Code Phon e Number POWERCHART documented in this encounter Visit Diagnoses Not on filedocumented in this encounter
--- OUTSIDE RECORDS SUMMARY | 2022-05-25 21:07 | XMS_ITS | Encounter Summary ---
:1975 Author Organization [facility] Address [address] [place] [address] Care Team Providers Name Role Phone Unavailable Primary Care Provider Unavailable Encounter Details Date Type Department Care Team Description 07/02/2015 Hospital Encounter HX [facility] Marsha Henriquez M.D. [address] [place], [place] [address] (Wo rk) Social History [...] at Date Recorded Female 05/03/2022 7:07 PM HONEYCOMB DECAPPER documented as of this encounter Last Filed Vital Signs Vital Sign Reading Time Taken Comments Blood Pressure - - Pulse - - Temperature - - Respiratory Rate - - Oxygen Saturation - - Inhaled Oxygen Concentration - - Weight - - Height 147 cm (4' 9.87) 07/02/2015 10:30 AM HONEYCOMB DECAPPER Body Mass Index - - documented in this encounter Medications at Time of Discharge Medication Sig Dispensed Refills Start Date End Date multivitamin tablet Take 2 tablets by 0 3 mouth daily. FLUORIDE, SODIUM, Apply 1 application 0 3 12/31/2019 DENTAL topically 2 (two) times a day. documented as of this encounter Miscellaneous Notes Miscellaneous - Wali Zapata R.N. - 07/02/2015 11:34 AM CST Anticoagulation Patient Intake Anticoagulation Patient Intake Entered On: 07/02/2015 11:37 HONEYCOMB DECAPPER Performed On: 07/02/2015 11:34 HONEYCOMB DECAPPER by WALI ZAPATA RN Plan INR goal range : 2.0 - 3.0 Duration of Therapy : Lifelong Tablet Size : 3 mg, 5 mg WALI ZAPATA RN - 07/02/2015 11:34 HONEYCOMB DECAPPER Anticoagulation Management Plan Grid Date : 09/05/2013 [...] JM WALI Cortez RN - 07/02/2015 11:34 HONEYCOMB DECAPPER WALI ZAPATA RN - 07/02/2015 11:34 HONEYCOMB DECAPPER WALI ZAPATA RN - 07/02/2015 11:34 HONEYCOMB DECAPPER WALI ZAPATA RN - 07/02/2015 11:34 HONEYCOMB DECAPPER Date : 12/26/2013 CDT 01/30/2014 CDT 03/06/2014 [...] : WALI Chau RN - 07/02/2015 11:34 HONEYCOMB DECAPPER WALI ZAPATA RN - 07/02/2015 11:34 HONEYCOMB DECAPPER WALI ZAPATA RN - 07/02/2015 11:34 HONEYCOMB DECAPPER WALI ZAPATA RN - 07/02/2015 11:34 HONEYCOMB DECAPPER Date : 03/20/2014 CDT 03/27/2014 CDT 04/10/2014 [...] lackey LM /pharmacy WALI ZAPATA RN - 07/02/2015 11:34 HONEYCOMB DECAPPER WALI ZAPATA RN - 07/02/2015 11:34 HONEYCOMB DECAPPER WALI ZAPATA RN - 07/02/2015 11:34 HONEYCOMB DECAPPER WALI ZAPATA RN - 07/02/2015 11:34 HONEYCOMB DECAPPER Date : 04/17/2014 CDT 04/24/2014 CDT 05/01/2014 HONEYCOMB DECAPPER 05/15/2014 HONEYCOMB DECAPPER Location of INR sample : Lab Lab [...] will trynoted dose called to mom Fabiola [phone] called to Fabiola/no changes Called to mother/Fabiola, not awareof any changes Recommend Recheck : One week One week Two weeks Two weeks Plan completed by : WALI DAVISON RN - 07/02/2015 11:34 HONEYCOMB DECAPPER WALI ZAPATA RN - 07/02/2015 11:34 WALI HARDWICK RN - 07/02/2015 11:34 WALI HARDWICK RN - 07/02/2015 11:34 HONEYCOMB DECAPPER Date : 06/03/2014 HONEYCOMB DECAPPER 06/05/2014 HONEYCOMB DECAPPER 06/10/2014 HONEYCOMB DECAPPER 06/11/2014 HONEYCOMB DECAPPER Location of INR sample : Lab Type [...] Fabiola granados. Hue will be staying in [place] 2wks post-surgery & have INR drawn there. [...] lovenox tomorrow AM as ordered. INR in [place] for next several weeks as pt will be recovering there. Recommend Recheck : Other: depending on Dr. Henriquez's preop. Other: 06/18 Other: 06/13/14 Plan completed by : WALI FONTAINE RN - 07/02/2015 11:34 HONEYCOMB DECAPPER WALI ZAPATA RN - 07/02/2015 11:34 HONEYCOMB DECAPPER WALI ZAPATA RN - 07/02/2015 11:34 WALI HARDWICK RN - 07/02/2015 11:34 HONEYCOMB DECAPPER Date : 06/14/2014 HONEYCOMB DECAPPER 06/14/2014 HONEYCOMB DECAPPER 06/16/2014 HONEYCOMB DECAPPER 06/23/2014 HONEYCOMB DECAPPER Location of INR sample : Clinic Lab Lab Type of Sample : Venous Venous INR Result : 1.3 on 06/13 2.4 faxed from lab 2.0 Warfarin Dose : (pt took 2.5mg 06/13) 5mg Sat and 5mg Sun (06/14 and 06/15) 5mg Mon and 2.5mg all other days 5mg Mon and 2.5mg all other days Total Weekly Warfarin Dose : 20 20 Comment : [place] lab called with INR result from 06/13, reported they left a message with Dr. Henriquez and hadn't heard back, spoke with Fabiola granados, and gave doses, continue Lovenox and repeat INR 06/16, message left with INR clinic in [place] to contact CF Please contact [facility] lab on 06/16 for result and may call Fabiola at [phone] with instructions call to Fabiola/will stop Lovenox [...] by : WALI Senior LM, RN - 07/02/2015 11:34 HONEYCOMB DECAPPER WALI ZAPATA RN - 07/02/2015 11:34 HONEYCOMB DECAPPER WALI ZAPATA RN - 07/02/2015 11:34 HONEYCOMB DECAPPER WALI ZAPATA RN - 07/02/2015 11:34 HONEYCOMB DECAPPER Date : 07/10/2014 HONEYCOMB DECAPPER 07/17/2014 HONEYCOMB DECAPPER 07/31/2014 HONEYCOMB DECAPPER 09/11/2014 CDT Location of INR sample : [...] : WALI Bryson RN - 07/02/2015 11:34 HONEYCOMB DECAPPER WALI ZAPATA RN - 07/02/2015 11:34 HONEYCOMB DECAPPER WALI ZAPATA RN - 07/02/2015 11:34 WALI HARDWICK RN - 07/02/2015 11:34 HONEYCOMB DECAPPER Date : 09/12/2014 CDT 09/25/2014 CDT 10/02/2014 [...] : WALI Lopez RN - 07/02/2015 11:34 HONEYCOMB DECAPPER WALI ZAPATA RN - 07/02/2015 11:34 HONEYCOMB DECAPPER WALI ZAPATA RN - 07/02/2015 11:34 HONEYCOMB DECAPPER WALI ZAPATA RN - 07/02/2015 11:34 HONEYCOMB DECAPPER Date : 10/23/2014 CDT 11/13/2014 CDT 11/20/2014 [...] : WALI Jeffery RN - 07/02/2015 11:34 HONEYCOMB DECAPPER WALI ZAPATA RN - 07/02/2015 11:34 WALI HARDWICK RN - 07/02/2015 11:34 WALI HARDWICK RN - 07/02/2015 11:34 HONEYCOMB DECAPPER Date : 12/04/2014 CDT 12/18/2014 CDT 01/15/2015 [...] : WALI Boss RN - 07/02/2015 11:34 WALI HARDWICK RN - 07/02/2015 11:34 WALI HARDWICK RN - 07/02/2015 11:34 WALI HARDWICK RN - 07/02/2015 11:34 HONEYCOMB DECAPPER Date : 02/05/2015 CDT 02/26/2015 CDT 03/05/2015 [...] : WALI HAAS RN - 07/02/2015 11:34 HONEYCOMB DECAPPER WALI ZAPATA RN - 07/02/2015 11:34 HONEYCOMB DECAPPER WALI ZAPATA RN - 07/02/2015 11:34 WALI HARDWICK RN - 07/02/2015 11:34 HONEYCOMB DECAPPER Date : 04/09/2015 CDT 05/07/2015 HONEYCOMB DECAPPER 06/04/2015 HONEYCOMB DECAPPER 07/02/2015 HONEYCOMB DECAPPER Location of INR sample : Lab Lab [...] completed by : WALI Chavez RN - 07/02/2015 11:34 HONEYCOMB DECAPPER WALI ZAPATA RN - 07/02/2015 11:34 WALI HARDWICK RN - 07/02/2015 11:34 WALI HARDWICK RN - 07/02/2015 11:34 HONEYCOMB DECAPPER Anticoagulation Assessment / History Visit : Phone management Plan of Care Date : 01/29/2008 CDT Primary Physician Anticoagulation : TASHA HENRIQUEZ MD 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 From: WALI MCCLELLAN RN ( Anticoagulation Nurse) To: Anticoagulation Nurse; Sent: 07/02/2015 11:15:24 HONEYCOMB DECAPPER Show up: 07/02/2015 11:16:00 HONEYCOMB DECAPPER Subject: Results Notification Results: Date Result Name Value Ref Range 07/02/2015 08:00 PT 26.6 second(s) (8.7 - 11.8) 07/02/2015 08:00 INR 2.4 INR (0.9 - 1.1) Source: [facility] POWERCHART Document Id: [id number] documented in this encounter Plan of Treatment Upcoming Encounters Date Type Specialty Care Team Description 06/22/2022 Appointment Laboratory Medicine Rusty Vee M.D. [address] [place] [phone] 06/22/2022 Diagnostic Pulmonary Medicine Rusty Vee M.D. [address] [place] [phone] 06/22/2022 Diagnostic Pulmonary Medicine Rusty Vee M.D. [address] [place] [phone] 06/22/2022 Appointment Radiology Rusty Vee M.D. [address] [place] [address] 06/23/2022 Clinical Communication Admitting/Central Scheduling 06/28/2022 Appointment Pulmonary Medicine Rusty Vee M.D. [address] [place] [address] 06/28/2022 Appointment Pulmonary Medicine Rusty Vee M.D. [address] [place] [address] documented as of this encounter Procedures Procedure Name Priority Date/Time Associated Comments Diagnosis PROTHROMBIN TIME Routine 07/02/2015 8:00 AM Resul ts for this (PT), P HONEYCOMB DECAPPER procedure are i n the results section. documented in this encounter Results (ABNORMAL) PT (Prothrombin Time) with INR (07/02/2015 8:00 AM HONEYCOMB DECAPPER) [facility] Method Time Signature Prothrombin 26.6 (H) [...] / Volume Laterality Blood 07/02/2015 8:00 AM HONEYCOMB DECAPPER Tasha Henriquez M.D. LAB BLOOD ADD-ON Performing Organization Address City/State/ZIP Code Phon e Number POWERCHART documented in this encounter Visit Diagnoses Not on filedocumented in this encounter
--- OUTSIDE RECORDS SUMMARY | 2022-05-25 21:07 | XMS_ITS | Encounter Summary ---
:1975 Author Organization [facility] Address [address] [place] [address] Care Team Providers Name Role Phone Unavailable Primary Care Provider Unavailable Encounter Details Date Type Department Care Team Description 01/28/2016 Hospital Encounter [facility]X [facility] Marsha Henriquez M.D. [address] [place], [place] [address] (Wo rk) Social History [...] at Date Recorded Female 05/03/2022 7:07 PM CLOD PULLER documented as of this encounter Last Filed [...] a long time, no bleeding now [place] [facility] [place]ola,call if changes Recommend Recheck : [...] lackey LM /pharmacy WALI MCCLELLAN RN - 01/28/2016 11:43 CDT WALI MCCLELLAN RN - 01/28/2016 11:43 CDT WALI MCCLELLAN RN - 01/28/2016 11:43 CDT WALI MCCLELLAN RN - 01/28/2016 11:43 CDT Date : 04/17/2014 CDT 04/24/2014 CDT 05/01/2014 CLOD PULLER 05/15/2014 CLOD PULLER Location of INR sample : Lab Lab [...] will trynoted dose called to mom Fabiola [phone] called to Fabiola/no changes Called to mother/Fabiola, not awareof any changes Recommend Recheck : One week One week Two weeks Two weeks Plan completed by : MARIA GUADALUPE PRECIADO WALI MCCLELLAN RN - 01/28/2016 11:43 CDT WALI MCCLELLAN RN - 01/28/2016 11:43 CDT WALI MCCLELLAN RN - 01/28/2016 11:43 CDT WALI MCCLELLAN RN - 01/28/2016 11:43 CDT Date : 06/03/2014 CLOD PULLER 06/05/2014 CLOD PULLER 06/10/2014 CLOD PULLER 06/11/2014 CLOD PULLER Location of INR sample : Lab Type [...] Called motherFabiola. Hue will be staying in [place] 2wks post-surgery & have INR drawn there. [...] lovenox tomorrow AM as ordered. INR in [place] for next several weeks as pt will be recovering there. Recommend Recheck : Other: depending on Dr. Henriquez's preop. Other: 06/18 Other: 06/13/14 Plan completed by : WALI TYLER RN - 01/28/2016 11:43 CDT WALI MCCLELLAN RN - 01/28/2016 11:43 CDT WALI MCCLELLAN RN - 01/28/2016 11:43 CDT WALI MCCLELLAN RN - 01/28/2016 11:43 CDT Date : 06/14/2014 CLOD PULLER 06/14/2014 CLOD PULLER 06/16/2014 CLOD PULLER 06/23/2014 CLOD PULLER Location of INR sample : Clinic Lab Lab Type of Sample : Venous Venous INR Result : 1.3 on 06/13 2.4 faxed from lab 2.0 Warfarin Dose : (pt took 2.5mg 06/13) 5mg Sat and 5mg Sun (06/14 and 06/15) 5mg Mon and 2.5mg all other days 5mg Mon and 2.5mg all other days Total Weekly Warfarin Dose : 20 20 Comment : [place] lab called with INR result from 06/13, reported they left a message with Dr. Henriquez and hadn't heard back, spoke with Fabiola granados, and gave doses, continue Lovenox and repeat INR 06/16, message left with INR clinic in [place] to contact CF Please contact [facility] lab on 06/16 for result and may call Fabiola at [phone] with instructions call to Fabiola/will stop Lovenox [...] by : WALI Steven LM RN - 01/28/2016 11:43 CDT WALI MCCLELLAN RN - 01/28/2016 11:43 CDT WALI MCCLELLAN RN - 01/28/2016 11:43 CDT WALI MCCLELLAN RN - 01/28/2016 11:43 CDT Date : 07/10/2014 CLOD PULLER 07/17/2014 CLOD PULLER 07/31/2014 CLOD PULLER 09/11/2014 CDT Location of INR sample : [...] 11:43 CDT Date : 04/09/2015 CDT 05/07/2015 CLOD PULLER 06/04/2015 CLOD PULLER 07/02/2015 CLOD PULLER Location of INR sample : Lab Lab [...] - 01/28/2016 11:43 CDT Date : 08/06/2015 CLOD PULLER 09/17/2015 CDT 10/29/2015 CDT 11/12/2015 CDT Location [...] MCCLELLAN RN - 01/28/2016 11:43 CDT Source: [facility] [employer] Document Id: [id number] CDT!547 Miscellaneous - Khadar Banda R.N. - [...] INR 2.5 INR (0.9 - 1.1) Source: [facility] POWERCHART Document Id: [id number] Electronically signed by Lay [facility] Payroll Assistant [id number] at 11/20/2016 3:10 AM CDT documented in this encounter Plan of Treatment Upcoming Encounters Date Type Specialty Care Team Description 06/22/2022 Appointment Laboratory Medicine Rusty Vee M.D. [address] [place] [phone] 06/22/2022 Diagnostic Pulmonary Medicine Rusty Vee M.D. [address] [place] [phone] 06/22/2022 Diagnostic Pulmonary Medicine Rusty Vee M.D. [address] [place] [phone] 06/22/2022 Appointment Radiology Rusty Vee M.D. [address] [place] [phone] 06/23/2022 Clinical Communication Admitting/Central Scheduling 06/28/2022 Appointment Pulmonary Medicine Rusty Vee M.D. [address] [place] [phone] 06/28/2022 Appointment Pulmonary Medicine Rusty Vee M.D. [address] [place] [phone] documented as of this encounter Procedures Procedure Name Priority Date/Time Associated Comments Diagnosis PROTHROMBIN TIME Routine 01/28/2016 8:05 AM Resul ts for this (PT), P CDT procedure are i n the results section. documented in this encounter Results (ABNORMAL) PT (Prothrombin Time) with INR (01/28/2016 8:05 AM CDT) [facility] Method Time Signature Prothrombin 27.5 (H) 8.7 [...]
--- OUTSIDE RECORDS SUMMARY | 2022-05-25 21:08 | XMS_ITS | Encounter Summary ---
:1975 Author Organization [facility] Address [address] [place] [address] Care Team Providers Name Role Phone Unavailable Primary Care Provider Unavailable Encounter Details Date Type Department Care Team Description 02/05/2015 Hospital Encounter HX [facility] Marsha Henriquez M.D. [address] [place], [place] [address] (Wo rk) Social History [...] at Date Recorded Female 05/03/2022 7:07 PM SURGERY SPECIALIST documented as of this encounter Last [...] Notes Miscellaneous - Meli Campo R.N. - 02/05/2015 11:01 AM CDT Anticoagulation Patient [...] darya BURGESS JM MELI Carroll RN - 02/05/2015 11:01 CDT [...] lackey LM /pharmacy MELI CAMPO RN - 02/05/2015 11:01 CDT MELI CAMPO RN - 02/05/2015 11:01 CDT MELI CAMPO - 02/05/2015 11:01 CDT MELI CAMPO RN - 02/05/2015 11:01 CDT Date : 04/17/2014 CDT 04/24/2014 CDT 05/01/2014 SURGERY SPECIALIST 05/15/2014 SURGERY SPECIALIST Location of INR sample : Lab [...] will trynoted dose called to mom Fabiola [phone] called to Fabiola/no changes Called to mother/Fabiola, not awareof any changes Recommend Recheck : One week One week Two weeks Two weeks Plan completed by : MELI LEON RN - 02/05/2015 11:01 CDMELI CHERRY RN - 02/05/2015 11:01 MELI ESQUIVEL - 02/05/2015 11:01 CDT MELI CAMPO RN - 02/05/2015 11:01 CDT Date : 06/03/2014 SURGERY SPECIALIST 06/05/2014 SURGERY SPECIALIST 06/10/2014 SURGERY SPECIALIST 06/11/2014 SURGERY SPECIALIST Location of INR sample : Lab Type of Sample : Venous INR Result : 2.1(05/29) Warfarin Dose : 5mg Mon and 2.5mg all other days 5mg Mon and 2.5mg all other days 5mg / & 2.5mg 06/12 Total Weekly Warfarin Dose [...] Fabiola granados. Hue will be staying in [place] 2wks post-surgery & have INR drawn there. [...] lovenox tomorrow AM as ordered. INR in [place] for next several weeks as pt will be recovering there. Recommend Recheck : Other: depending on Dr. Henriquez's preop. Other: 06/18 Other: 06/13/14 Plan completed by : MELI ROSADO RN - 02/05/2015 11:01 CDT MELI CAMPO RN - 02/05/2015 11:01 CDT MELI CAMPO - 02/05/2015 11:01 APTRICIAT MELI CAMPO RN - 02/05/2015 11:01 CDT Date : 06/14/2014 SURGERY SPECIALIST 06/14/2014 SURGERY SPECIALIST 06/16/2014 SURGERY SPECIALIST 06/23/2014 SURGERY SPECIALIST Location of INR sample : Clinic [...] Warfarin Dose : 20 20 Comment : [place] lab called with INR result from 06/13, reported they left a message with Dr. Henriquez and hadn't heard back, spoke with motherFabiola, and gave doses, continue Lovenox and repeat INR 06/16, message left with INR clinic in [place] to contact CF Please contact [facility] lab on 06/16 for result and may call Fabiola at [phone] with instructions call to Fabiola/will stop Lovenox [...] MELI Vazquez LM, RN - 02/05/2015 11:01 CDT MELI CAMPO RN - 02/05/2015 11:01 PATRICIAT MELI CAMPO - 02/05/2015 11:01 CDT MELI CAMPO RN - 02/05/2015 11:01 CDT Date : 07/10/2014 SURGERY SPECIALIST 07/17/2014 SURGERY SPECIALIST 07/31/2014 SURGERY SPECIALIST 09/11/2014 CDT Location of INR sample [...] CAMPO RN - 02/05/2015 11:01 CDT Source: [facility] [employer] Document Id: [id number] CDT!389 Miscellaneous - Meli Campo R.N. - [...] INR 2.6 INR (0.9 - 1.1) Source: [facility] [employer] Document Id: [id number] Electronically signed by Lay [facility] Superintendent System Operation [id number] at 11/21/2016 12:50 AM CDT documented in this encounter Plan of Treatment Upcoming Encounters Date Type Specialty Care Team Description 06/22/2022 Appointment Laboratory Medicine Rusty Vee M.D. [address] [place] [phone] 06/22/2022 Diagnostic Pulmonary Medicine Rusty Vee M.D. [address] [place] [phone] 06/22/2022 Diagnostic Pulmonary Medicine Rusty Vee M.D. [address] [place] [phone] 06/22/2022 Appointment Radiology Rusty Vee M.D. [address] [place] [phone] 06/23/2022 Clinical Communication Admitting/Central Scheduling 06/28/2022 Appointment Pulmonary Medicine Rusty Vee M.D. [address] [place] [phone] 06/28/2022 Appointment Pulmonary Medicine Rusty Vee M.D. [address] [place] [phone] documented as of this encounter Procedures Procedure Name Priority Date/Time Associated Comments Diagnosis PROTHROMBIN TIME Routine 02/05/2015 8:00 AM Resul ts for this (PT), P CDT procedure are i n the results section. documented in this encounter Results (ABNORMAL) PT (Prothrombin Time) with INR (02/05/2015 8:00 AM CDT) [facility] Method Time Signature Prothrombin 28.6 (H) [...]
--- OUTSIDE RECORDS SUMMARY | 2022-05-25 21:08 | XMS_ITS | Encounter Summary ---
:1975 Author Organization [facility] Address [address] [place] [address] Care Team Providers Name Role Phone Unavailable Primary Care Provider Unavailable Encounter Details Date Type Department Care Team Description 08/27/[address] [facility] Marsha Henriquez M.D. [address] [place], [place] [address] (Wo rk) Social History [...] at Date Recorded Female 05/03/2022 7:07 PM BRICK EXTRUDER OPERATOR documented as of this encounter Last Filed Vital Signs Vital Sign Reading Time Taken Comments Blood Pressure 90/60 08/27/2014 10:22 AM BRICK EXTRUDER OPERATOR Pulse 76 08/27/2014 10:22 AM BRICK EXTRUDER OPERATOR Temperature - - Respiratory Rate - - Oxygen Saturation - - Inhaled Oxygen Concentration - - Weight 81.4 kg (179 lb 7.3 oz) 08/27/2014 10:22 AM BRICK EXTRUDER OPERATOR Height 157 cm (5' 1.81) 08/27/2014 10:22 AM BRICK EXTRUDER OPERATOR Body Mass Index 33.02 08/27/2014 10:22 AM BRICK EXTRUDER OPERATOR documented in this encounter Medications at Time of Discharge Medication Sig Dispensed Refills Start Date End Date multivitamin tablet Take 2 tablets by 0 3 mouth daily. FLUORIDE, SODIUM, Apply 1 application 0 3 12/31/2019 DENTAL topically 2 (two) times a day. documented as of this encounter Progress Notes Tasha Henriquez M.D. - 08/27/2014 10:09 AM CST [id number] Jade, she goes by, presents today with [...] HENRIQUEZ MD On: 08/28/2014 07:21 AM Source: [facility] MHSDOLBEYNONRADSYS Document Id: [id number] K EXTRUDER OPERATOR documented in this encounter Miscellaneous Notes Miscellaneous - Tasha Henriquez M.D. - 08/27/2014 11:01 AM CST Ambulatory Patient Summary [facility] [address], [address] [place], [place] [phone] Visit Information Name: DORITA SHEFFIELD [facility] Number: [id number] Current Date: 08/27/2014 11:01:27 Physicians [...] directed x 5 day(s) New Routed to [address] [id number] fluoride topical (Prevident 5000 Plus topical paste) [...] Appointments Date Time Location Provider 09/11/2014 07:15 [facility] Draw 2 Attention: Contact your local Clinic if further appointment detail needed. Your Goals/Additional instructions: Source: [facility] POWERCHART Document Id: [id number] K EXTRUDER OPERATOR Miscellaneous - Tasha Henriquez M.D. - 08/27/2014 11:01 AM CST Ambulatory Discharge Medication List [facility] [address], [address] [place], [place] [phone] Visit Information Name: DORITA SHEFFIELD [facility] Number: [id number] Visit Date: 08/27/2014 11:01:26 Attending [...] directed x 5 day(s) New Routed to [address] [id number] fluoride topical (Prevident 5000 Plus topical paste) [...] MD Signed On:27-AUG-2014 11:01:22 Additional Information: Source: [facility] POWERCHART Document Id: [id number] K EXTRUDER OPERATOR Miscellaneous - Libby Brambila L.P.N. - 08/27/2014 10:22 AM CST Adult Aviation Operations Specialist Intake/History Adult Aviation Operations Specialist Intake/History Entered On: 08/27/2014 10:24 BRICK EXTRUDER OPERATOR Performed On: 08/27/2014 10:22 BRICK EXTRUDER OPERATOR by LIBBY BRAMBILA LPN Intake Ambulatory Intake Additional Information : mother who isn't with pt is her legal gaurdian is on vacation, we are to call her when back to set up pap and mammo and ask when she got her flu shot LIBBY BRAMBILA LPN - 08/27/2014 10:24 BRICK EXTRUDER OPERATOR Chief Complaint : sneezing,runny nose and cough [...] kg/m2 LIBBY BRAMBILA LPN - 08/27/2014 10:22 BRICK EXTRUDER OPERATOR General Info Information Given By : Patient Languages : Colombian Is Patient Female and 13-50 no hysterectomy : Yes Status : Patient denies Are you ? : No LIBBY BRAMBILA LPN - 08/27/2014 10:22 BRICK EXTRUDER OPERATOR Subjective Pain Symptoms : No LIBBY BRAMBILA LPN - 08/27/2014 10:22 BRICK EXTRUDER OPERATOR Dependent Habits Tobacco Use/Currently Using : No Exposure to Tobacco Smoke : Other: never smoker Smoking Status : Never smoker LIBBY BRAMBILA LPN - 08/27/2014 10:22 BRICK EXTRUDER OPERATOR ID Screen Drug Resistant Organism : No Travel Within Last 21 Days : No Contact with someone with Ebola : No LIBBY BRAMBILA LPN - 08/27/2014 10:22 BRICK EXTRUDER OPERATOR Source: [facility] POWERCHART Document Id: [id number] BRICK EXTRUDER OPERATOR!3 K EXTRUDER OPERATOR Miscellaneous - Libby Brambila L.PMichaelNMichael - 08/27/2014 10:20 AM CST Health Assessment Health Assessment Entered On: 08/27/2014 10:21 BRICK EXTRUDER OPERATOR Performed On: 08/27/2014 10:20 BRICK EXTRUDER OPERATOR by LIBBY BRAMBILA LPN Health Assessment Complete Health Assessment Complete or Modified : Annual Health Assessment Annual Health Assessment Completed : Yes LIBBY BRAMBILA LPN - 08/27/2014 10:20 BRICK EXTRUDER OPERATOR Nutrition Nutrition Risk Factors by History Adult : None LIBBY BRAMBILA LPN - 08/27/2014 10:20 BRICK EXTRUDER OPERATOR Functional Current Daily Living Assistance : None LIBBY BRAMBILA LPN - 08/27/2014 10:20 BRICK EXTRUDER OPERATOR Dependent Habits Tobacco Use/Currently Using : No Exposure to Tobacco Smoke : Other: never smoker Smoking Status : Never smoker LIBBY BRAMBILA LPN - 08/27/2014 10:20 BRICK EXTRUDER OPERATOR Psychosocial Domestic Abuse Concerns : None Jew Preference : No qualifying data available. LIBBY BRAMBILA LPN - 08/27/2014 10:20 BRICK EXTRUDER OPERATOR Advance Directive Advanced Directives : No Advance Directive Additional Information : No LIBBY BRAMBILA LPN - 08/27/2014 10:20 BRICK EXTRUDER OPERATOR Educ Needs Learning Style Preference Adult Grid Patient : None Family : None LIBBY BRAMBILA LPN - 08/27/2014 10:20 BRICK EXTRUDER OPERATOR [facility] Document Id: [id number] BRICK EXTRUDER OPERATOR!22 K EXTRUDER OPERATOR documented in this encounter Plan of Treatment Upcoming Encounters Date Type Specialty Care Team Description 06/22/2022 Appointment Laboratory Medicine Rusty Vee M.D. [address] [place] [phone] 06/22/2022 Diagnostic Pulmonary Medicine Rusty Vee M.D. [address] [place] [phone] 06/22/2022 Diagnostic Pulmonary Medicine Rusty Vee M.D. [address] [place] [phone] 06/22/2022 Appointment Radiology Rusty Vee M.D. [address] [place] [phone] 06/23/2022 Clinical Communication Admitting/Central Scheduling 06/28/2022 Appointment Pulmonary Medicine Rusty Vee M.D. [address] [place] [phone] 06/28/2022 Appointment Pulmonary Medicine Rusty Vee M.D. [address] [place] [phone] documented as of this encounter Visit Diagnoses Not on filedocumented in this encounter
--- OUTSIDE RECORDS SUMMARY | 2022-05-25 21:08 | XMS_ITS | Encounter Summary ---
:1975 Author Organization [facility] Address [address] [place] [address] Care Team Providers Name Role Phone Unavailable Primary Care Provider Unavailable Encounter Details Date Type Department Care Team Description 11/20/2014 Hospital Encounter [facility] Marsha Henriquez M.D. [address] [place], [place] [address] (Wo rk) Social History [...] at Date Recorded Female 05/03/2022 7:07 PM SUPERVISOR GROUNDS documented as of this encounter Last Filed [...] Notes Miscellaneous - Khadar Banda R.N. - 11/20/2014 10:11 AM CDT Anticoagulation Patient [...] completed by : KHADAR Manning RN - 11/20/2014 10:11 CDT KHADAR BANDA [...] completed by : KHADAR Cho RN - 11/20/2014 10:11 CDT KHADAR BANDA [...] lackey LM /pharmacy KHADAR BANDA RN - 11/20/2014 10:11 CDT KHADAR BANDA RN - 11/20/2014 10:11 CDT KHADAR BANDA RN - 11/20/2014 10:11 CDT KHADAR BANDA RN - 11/20/2014 10:11 CDT Date : 04/17/2014 CDT 04/24/2014 CDT 05/01/2014 SUPERVISOR GROUNDS 05/15/2014 SUPERVISOR GROUNDS Location of INR sample : Lab Lab [...] will trynoted dose called to mom Fabiola [phone] called to Fabiola/no changes Called to mother/Fbaiola, not awareof any changes Recommend Recheck : One week One week Two weeks Two weeks Plan completed by : KHADAR HACKETT RN - 11/20/2014 10:11 CDT KHADAR BANDA RN - 11/20/2014 10:11 CDT KHADAR BANDA RN - 11/20/2014 10:11 CDT KHADAR BANDA RN - 11/20/2014 10:11 CDT Date : 06/03/2014 SUPERVISOR GROUNDS 06/05/2014 SUPERVISOR GROUNDS 06/10/2014 SUPERVISOR GROUNDS 06/11/2014 SUPERVISOR GROUNDS Location of INR sample : Lab Type [...] Called motherFabiola. Hue will be staying in [place] 2wks post-surgery & have INR drawn there. [...] lovenox tomorrow AM as ordered. INR in [place] for next several weeks as pt will be recovering there. Recommend Recheck : Other: depending on Dr. Henriquez's preop. Other: 06/18 Other: 06/13/14 Plan completed by : KHADAR SANDERS RN - 11/20/2014 10:11 CDT KHADAR BANDA RN - 11/20/2014 10:11 PATRICIAT KHADAR BANDA RN - 11/20/2014 10:11 PATRICIAT KHADAR BANDA RN - 11/20/2014 10:11 CDT Date : 06/14/2014 SUPERVISOR GROUNDS 06/14/2014 SUPERVISOR GROUNDS 06/16/2014 SUPERVISOR GROUNDS 06/23/2014 SUPERVISOR GROUNDS Location of INR sample : Clinic Lab Lab Type of Sample : Venous Venous INR Result : 1.3 on 06/13 2.4 faxed from lab 2.0 Warfarin Dose : (pt took 2.5mg 06/13) 5mg Sat and 5mg Sun (06/14 and 06/15) 5mg Mon and 2.5mg all other days 5mg Mon and 2.5mg all other days Total Weekly Warfarin Dose : 20 20 Comment : [place] lab called with INR result from 06/13, reported they left a message with Dr. Henriquez and hadn't heard back, spoke with mother, Fabiola, and gave doses, continue Lovenox and repeat INR 06/16, message left with INR clinic in to contact CF Please contact [place] lab on 06/16 for result and may call Fabiola at [phone] with instructions call to Fabiola/will stop Lovenox injections and take noted dose/pt has an appt here in [place] 06/23 so will do lab appt here that day Called to Fabiola/ Hue will be back at [facility] by next draw. will have done on . no changes to meds/diet. Recommend Recheck : Two days One week Two weeks Plan completed by : KHADAR Mattson LM, RN - 11/20/2014 10:11 CDT KHADAR BANDA RN - 11/20/2014 10:11 CDT KHADAR BANDA RN - 11/20/2014 10:11 CDT KHADAR BANDA RN - 11/20/2014 10:11 CDT Date : 07/10/2014 SUPERVISOR GROUNDS 07/17/2014 SUPERVISOR GROUNDS 07/31/2014 SUPERVISOR GROUNDS 09/11/2014 CDT Location of INR sample : [...] completed by : KHADAR Dumont RN - 11/20/2014 10:11 KHADAR HILL RN - 11/20/2014 10:11 PATRICIAT KHADAR BANDA RN - 11/20/2014 10:11 CDT [...] completed by : KHADAR Rondon RN - 11/20/2014 10:11 CDT KHADAR BANDA [...] week One week Plan completed by : ly ly ly KHADAR BANDA RN - 11/20/2014 10:11 CDT KHADAR BANDA RN - 11/20/2014 10:11 CDT KHADAR BANDA RN - 11/20/2014 13:48 CDT Anticoagulation Assessment [...] BANDA RN - 11/20/2014 13:48 CDT Source: [facility] [employer] Document Id: [id number] CDT!337 Miscellaneous - Khadar Banda R.N. - [...] INR 4.5 INR (0.8 - 1.1) [facility] Document Id: [id number] documented in this encounter Plan of Treatment Upcoming Encounters Date Type Specialty Care Team Description 06/22/2022 Appointment Laboratory Medicine Rusty Vee M.D. [address] [place] [phone] 06/22/2022 Diagnostic Pulmonary Medicine Rusty Vee M.D. [address] [place] [phone] 06/22/2022 Diagnostic Pulmonary Medicine Rusty Vee M.D. [address] [place] [phone] 06/22/2022 Appointment Radiology Rusty Vee M.D. [address] [place] [phone] 06/23/2022 Clinical Communication Admitting/Central Scheduling 06/28/2022 Appointment Pulmonary Medicine Rusty Vee M.D. [address] [place] [phone] 06/28/2022 Appointment Pulmonary Medicine Rusty Vee M.D. [address] [place] [phone] documented as of this encounter Procedures Procedure Name Priority Date/Time Associated Comments Diagnosis PROTHROMBIN TIME Routine 11/20/2014 8:07 AM Resul ts for this (PT), P CDT procedure are i n the results section. documented in this encounter Results (ABNORMAL) PT (Prothrombin Time) with INR (11/20/2014 8:07 AM CDT) [facility] Method Time Signature Prothrombin 54.7 SECONDS POWERCHART [...]
--- OUTSIDE RECORDS SUMMARY | 2022-05-25 21:08 | XMS_ITS | Encounter Summary ---
:1975 Author Organization [facility] Address [address] [place] [address] Care Team Providers Name Role Phone Unavailable Primary Care Provider Unavailable Encounter Details Date Type Department Care Team Description 09/25/[address] [facility] Marsha Henriquez M.D. [address] [place], [place] [address] (Wo rk) Social History [...] at Date Recorded Female 05/03/2022 7:07 PM GRADES 9 THRU 12 VISITING TEACHER documented as of this encounter Last [...] Notes Miscellaneous - Khadar Banda R.N. - 09/25/2014 4:08 PM CDT Anticoagulation Patient [...] completed by : KHADAR Manning RN - 09/25/2014 16:08 CDT KHADAR BANDA [...] lackey LM /pharmacy KHADAR BANDA RN - 09/25/2014 16:08 CDT KHADAR BANDA RN - 09/25/2014 16:08 CDT KHADAR BANDA RN - 09/25/2014 16:08 CDT KHADAR BANDA RN - 09/25/2014 16:08 CDT Date : 04/17/2014 CDT 04/24/2014 CDT 05/01/2014 GRADES 9 THRU 12 VISITING TEACHER 05/15/2014 GRADES 9 THRU 12 VISITING TEACHER Location of INR sample : Lab [...] will trynoted dose called to mom Fabiola [phone] called to Fabiola/no changes Called to mother/Fabiola, not awareof any changes Recommend Recheck : One week One week Two weeks Two weeks Plan completed by : KHADAR HACKETT RN - 09/25/2014 16:08 CDT KHADAR BANDA RN - 09/25/2014 16:08 CDT KHADAR BANDA RN - 09/25/2014 16:08 CDT KHADAR BANDA RN - 09/25/2014 16:08 CDT Date : 06/03/2014 GRADES 9 THRU 12 VISITING TEACHER 06/05/2014 GRADES 9 THRU 12 VISITING TEACHER 06/10/2014 GRADES 9 THRU 12 VISITING TEACHER 06/11/2014 GRADES 9 THRU 12 VISITING TEACHER Location of INR sample : Lab [...] Called motherFabiola. Hue will be staying in [place] 2wks post-surgery & have INR drawn [...] lovenox tomorrow AM as ordered. INR in [place] for next several weeks as pt will be recovering there. Recommend Recheck : Other: depending on Dr. Henriquez's preop. Other: 06/18 Other: 06/13/14 Plan completed by : KHADAR SANDERS RN - 09/25/2014 16:08 CDT KHADAR BANDA RN - 09/25/2014 16:08 PATRICIAT KHADAR BANDA RN - 09/25/2014 16:08 PATRICIAT KHADAR BANDA RN - 09/25/2014 16:08 CDT Date : 06/14/2014 GRADES 9 THRU 12 VISITING TEACHER 06/14/2014 GRADES 9 THRU 12 VISITING TEACHER 06/16/2014 GRADES 9 THRU 12 VISITING TEACHER 06/23/2014 GRADES 9 THRU 12 VISITING TEACHER Location of INR sample : Clinic [...] Warfarin Dose : 20 20 Comment : [place] lab called with INR result from 06/13, reported they left a message with Dr. Henriquez and hadn't heard back, spoke with mother, Fabiola, and gave doses, continue Lovenox and repeat INR 06/16, message left with INR clinic in to contact CF Please contact [place] lab on 06/16 for result and may call Fabiola at [phone] with instructions call to Fabiola/will stop Lovenox injections and take noted dose/pt has an appt here in [place] 06/23 so will do lab appt here that day Called to Fabiola/ Hue will be back at [facility] and [...] - 09/25/2014 16:08 CDT Date : 07/10/2014 GRADES 9 THRU 12 VISITING TEACHER 07/17/2014 GRADES 9 THRU 12 VISITING TEACHER 07/31/2014 GRADES 9 THRU 12 VISITING TEACHER 09/11/2014 CDT Location of INR sample [...] : KHADAR Dumont RN - 09/25/2014 16:08 KHADAR HILL RN [...] : 09/05/2013 CDT KHADAR BANDA RN - 09/25/2014 16:12 CDT Changes / Problems Changes/Problems Since Last Visit : None Been Scheduled For : None Missed Coumadin Doses : None Change In Intake : None Change In Medication : None Have You Had : None Plans to Travel : No KHADAR BANDA RN - 09/25/2014 16:12 CDT [facility] Document Id: [id number] CDT!289 Miscellaneous - Wali Mcclellan - 09/25/2014 10:26 AM CDT Results Notification From: WALI MCCLELLAN RN ( Anticoagulation Nurse) To: Anticoagulation Nurse; Sent: 09/25/2014 10:26:44 CDT Show up: 09/25/2014 10:27:00 CDT Subject: Results Notification Results: Date Result Name Value Ref Range 09/25/2014 08:06 PT 18.5 second(s) 09/25/2014 08:06 INR 1.7 INR (0.8 - 1.1) Source: [facility] POWERCHART Document Id: [id number] Electronically signed by Conversion, [facility] Outside Sales Associate [id number] at 11/20/2016 3:35 PM CDT documented in this encounter Plan of Treatment Upcoming Encounters Date Type Specialty Care Team Description 06/22/2022 Appointment Laboratory Medicine Rusty Vee M.D. [address] [place] [phone] 06/22/2022 Diagnostic Pulmonary Medicine Rusty Vee M.D. [address] [place] [phone] 06/22/2022 Diagnostic Pulmonary Medicine Rusty Vee M.D. [address] [place] [phone] 06/22/2022 Appointment Radiology Rusty Vee M.D. [address] [place] [phone] 06/23/2022 Clinical Communication Admitting/Central Scheduling 06/28/2022 Appointment Pulmonary Medicine Rusty Vee M.D. [address] [place] [phone] 06/28/2022 Appointment Pulmonary Medicine Rusty Vee M.D. [address] [place] [phone] documented as of this encounter Procedures Procedure Name Priority Date/Time Associated Comments Diagnosis PROTHROMBIN TIME Routine 09/25/2014 8:06 AM Resul ts for this (PT), P CDT procedure are i n the results section. documented in this encounter Results (ABNORMAL) PT (Prothrombin Time) with INR (09/25/2014 8:06 AM CDT) [facility] Method Time Signature Prothrombin 18.5 SECONDS POWERCHART [...]
--- OUTSIDE RECORDS SUMMARY | 2022-05-25 21:08 | XMS_ITS | Encounter Summary ---
:1975 Author Organization [facility] Address [address] [place] [address] Care Team Providers Name Role Phone Unavailable Primary Care Provider Unavailable Encounter Details Date Type Department Care Team Description 11/13/[address] [facility] Marsha Henriquez M.D. 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 - 11/13/2014 10:58 AM CDT Anticoagulation Patient [...] completed by : KHADAR Manning RN - 11/13/2014 10:58 CDT KHADAR BANDA [...] completed by : KHADAR Cho RN - 11/13/2014 10:58 CDT KHADAR BANDA [...] lackey LM /pharmacy KHADAR BANDA RN - 11/13/2014 10:58 CDT KHADAR BANDA RN - 11/13/2014 10:58 CDT KHADAR BANDA RN - 11/13/2014 10:58 CDT KHADAR BANDA RN - 11/13/2014 10:58 CDT Date : 04/17/2014 CDT 04/24/2014 CDT 05/01/2014 UPS DRIVER 05/15/2014 UPS DRIVER Location of INR sample : Lab [...] will trynoted dose called to mom Fabiola [phone] called to Fbaiola/no changes Called to mother/Fabiola, not awareof any changes Recommend Recheck : One week One week Two weeks Two weeks Plan completed by : KHADAR HACKETT RN - 11/13/2014 10:58 CDT KHADAR BANDA RN - 11/13/2014 10:58 CDT KHADAR BANDA RN - 11/13/2014 10:58 CDT KHADAR BANDA RN - 11/13/2014 10:58 CDT Date : 06/03/2014 UPS DRIVER 06/05/2014 UPS DRIVER 06/10/2014 UPS DRIVER 06/11/2014 UPS DRIVER Location of INR sample : Lab [...] Called motherFabiola. Hue will be staying in [place] 2wks post-surgery & have INR drawn there. [...] lovenox tomorrow AM as ordered. INR in [place] for next several weeks as pt will be recovering there. Recommend Recheck : Other: depending on Dr. Henriquez's preop. Other: 06/18 Other: 06/13/14 Plan completed by : KHADAR SANDERS RN - 11/13/2014 10:58 CDT KHADAR BANDA RN - 11/13/2014 10:58 PATRICIAT KHADAR BANDA RN - 11/13/2014 10:58 PATRICIAT KHADAR BANDA RN - 11/13/2014 10:58 CDT Date : 06/14/2014 UPS DRIVER 06/14/2014 UPS DRIVER 06/16/2014 UPS DRIVER 06/23/2014 UPS DRIVER Location of INR sample : Clinic [...] Warfarin Dose : 20 20 Comment : [place] lab called with INR result from 06/13, reported they left a message with Dr. Henriquez and hadn't heard back, spoke with mother, Fabiola, and gave doses, continue Lovenox and repeat INR 06/16, message left with INR clinic in to contact CF Please contact [place] lab on 06/16 for result and may call Fabiola at [phone] with instructions call to Fabiola/will stop Lovenox injections and take noted dose/pt has an appt here in [place] 06/23 so will do lab appt here that day Called to Fabiola/ Hue will be back at [facility] by next draw. will have done on . no changes to meds/diet. Recommend Recheck : Two days One week Two weeks Plan completed by : KHADAR Mattson LM RN - 11/13/2014 10:58 CDT KHADAR BANDA RN - 11/13/2014 10:58 CDT KHADAR BANDA RN - 11/13/2014 10:58 CDT KHADAR BANDA RN - 11/13/2014 10:58 CDT Date : 07/10/2014 UPS DRIVER 07/17/2014 UPS DRIVER 07/31/2014 UPS DRIVER 09/11/2014 CDT Location of INR sample [...] completed by : KHADAR Dumont RN - 11/13/2014 10:58 KHADAR HILL RN [...] completed by : KHADAR Rondon RN - 11/13/2014 10:58 CDT KHADAR BANDA [...] Travel : No KHADAR BANDA RN - 11/13/2014 12:12 CDT Source: [facility] [employer] Document Id: [id number] CDT!328 Miscellaneous - Khadar Banda R.N. - 11/13/2014 10:54 AM CDT [...] INR 5.1 INR (0.9 - 1.1) Source: [facility] POWERCHART Document Id: [id number] documented in this encounter Plan of Treatment Upcoming Encounters Date Type Specialty Care Team Description 06/22/2022 Appointment Laboratory Medicine Rusty Vee M.D. [address] [place] [phone] 06/22/2022 Diagnostic Pulmonary Medicine Rusty Vee M.D. [address] [place] [phone] 06/22/2022 Diagnostic Pulmonary Medicine Rusty Vee M.D. [address] [place] [address] [phone] 06/22/2022 Appointment Radiology Rusty Vee M.D. [address] [place] [phone] 06/23/2022 Clinical Communication Admitting/Central Scheduling 06/28/2022 Appointment Pulmonary Medicine Rusty Vee M.D. [address] [place] [phone] 06/28/2022 Appointment Pulmonary Medicine Rusty Vee M.D. [address] [place] [phone] documented as of this encounter Procedures Procedure Name Priority Date/Time Associated Comments Diagnosis PROTHROMBIN TIME Routine 11/13/2014 8:00 AM Resul ts for this (PT), P CDT procedure are i n the results section. documented in this encounter Results (ABNORMAL) PT (Prothrombin Time) with INR (11/13/2014 8:00 AM CDT) [facility] Method Time Signature Prothrombin 61.0 (H) [...]
--- OUTSIDE RECORDS SUMMARY | 2022-05-25 21:08 | XMS_ITS | Encounter Summary ---
:1975 Author Organization [facility] Address [address] [place] [address] Care Team Providers Name Role Phone Unavailable Primary Care Provider Unavailable Encounter Details Date Type Department Care Team Description 11/28/2014 Hospital Encounter HX [facility] Sridhar Galicia M.D. 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 [address] [place] [phone] 06/22/2022 Diagnostic Pulmonary Medicine Rusty Vee M.D. [address] [place] [phone] 06/22/2022 Diagnostic Pulmonary Medicine Rusty Vee M.D. [address] [place] [phone] 06/22/2022 Appointment Radiology Rusty Vee M.D. [address] [place] [phone] 06/23/2022 Clinical Communication Admitting/Central Scheduling 06/28/2022 Appointment Pulmonary Medicine Rusty Vee M.D. [address] [place] [phone] 06/28/2022 Appointment Pulmonary Medicine Rusty Vee M.D. [address] [place] [phone] documented as of this encounter Visit Diagnoses Not on filedocumented in this encounter
--- OUTSIDE RECORDS SUMMARY | 2022-05-25 21:08 | XMS_ITS | Encounter Summary ---
:1975 Author Organization [facility] Address [address] [place] [address] Care Team Providers Name Role Phone Unavailable Primary Care Provider Unavailable Encounter Details Date Type Department Care Team Description 02/26/2015 Hospital Encounter [facility] Marsha Henriquez M.D. [address] [place], [place] [address] (Wo rk) Social History [...] at Date Recorded Female 05/03/2022 7:07 PM SHERIFFS documented as of this encounter Last Filed [...] a long time, no bleeding now left [facility] for Fabiola,call if changes Recommend [...] lackey LM /pharmacy WALI MCCLELLAN RN - 02/26/2015 10:04 CDT WALI MCCLELLAN RN - 02/26/2015 10:04 CDT WALI MCCLELLAN RN - 02/26/2015 10:04 CDT WALI MCCLELLAN RN - 02/26/2015 10:04 CDT Date : 04/17/2014 CDT 04/24/2014 CDT 05/01/2014 SHERIFFS 05/15/2014 SHERIFFS Location of INR sample : Lab Lab [...] will trynoted dose called to mom Fabiola [phone] called to Fabiola/no changes Called to mother/Fabiola, not awareof any changes Recommend Recheck : One week One week Two weeks Two weeks Plan completed by : MARIA GUADALUPE PRECIADO WALI MCCLELLAN RN - 02/26/2015 10:04 CDT WALI MCCLELLAN RN - 02/26/2015 10:04 WALI GALINDO RN - 02/26/2015 10:04 CDT WALI MCCLELLAN RN - 02/26/2015 10:04 CDT Date : 06/03/2014 SHERIFFS 06/05/2014 SHERIFFS 06/10/2014 SHERIFFS 06/11/2014 SHERIFFS Location of INR sample : Lab Type [...] Called motherFabiola. Hue will be staying in [place] 2wks post-surgery & have INR drawn there. [...] lovenox tomorrow AM as ordered. INR in [place] for next several weeks as pt will be recovering there. Recommend Recheck : Other: depending on Dr. Henriquez's preop. Other: 06/18 Other: 06/13/14 Plan completed by : WALI TYLER RN - 02/26/2015 10:04 CDT WALI MCCLELLAN RN - 02/26/2015 10:04 CDT WALI MCCLELLAN RN - 02/26/2015 10:04 CDT WALI MCCLELLAN RN - 02/26/2015 10:04 CDT Date : 06/14/2014 SHERIFFS 06/14/2014 SHERIFFS 06/16/2014 SHERIFFS 06/23/2014 SHERIFFS Location of INR sample : Clinic Lab Lab Type of Sample : Venous Venous INR Result : 1.3 on 06/13 2.4 faxed from lab 2.0 Warfarin Dose : (pt took 2.5mg 06/13) 5mg Sat and 5mg Sun (06/14 and 06/15) 5mg Mon and 2.5mg all other days 5mg Mon and 2.5mg all other days Total Weekly Warfarin Dose : 20 20 Comment : [place] lab called with INR result from 06/13, reported they left a message with Dr. Henriquez and hadn't heard back, spoke with Fabiola granados, and gave doses, continue Lovenox and repeat INR 06/16, message left with INR clinic in [place] to contact CF Please contact [facility] lab on 06/16 for result and may call Fabiola at [phone] with instructions call to Fabiola/will stop Lovenox injections and take noted dose/pt has an appt here in [place] 06/23 so will do lab appt here that day Called to Fabiola/ Hue will be back at [facility] by next draw. will have done on . no changes to meds/diet. Recommend Recheck : Two days One week Two weeks Plan completed by : WALI Steven LM, RN - 02/26/2015 10:04 CDT WALI MCCLELLAN RN - 02/26/2015 10:04 CDT WALI MCCLELLAN RN - 02/26/2015 10:04 CDT WALI MCCLELLAN RN - 02/26/2015 10:04 CDT Date : 07/10/2014 SHERIFFS 07/17/2014 SHERIFFS 07/31/2014 SHERIFFS 09/11/2014 CDT Location of INR sample : [...] MCCLELLAN RN - 02/26/2015 10:04 CDT Source: [facility] [employer] Document Id: [id number] CDT!407 Miscellaneous - Khadar Banda R.N. - [...] INR 3.8 INR (0.8 - 1.1) Source: [facility] Document Id: [id number] documented in this encounter Plan of Treatment Upcoming Encounters Date Type Specialty Care Team Description 06/22/2022 Appointment Laboratory Medicine Rusty Vee M.D. [address] [place] [phone] 06/22/2022 Diagnostic Pulmonary Medicine Rusty Vee M.D. [address] [place] [phone] 06/22/2022 Diagnostic Pulmonary Medicine Rusty Vee M.D. [address] [place] [phone] 06/22/2022 Appointment Radiology Rusty Vee M.D. [address] [place] [phone] 06/23/2022 Clinical Communication Admitting/Central Scheduling 06/28/2022 Appointment Pulmonary Medicine Rusty Vee M.D. [address] [place] [phone] 06/28/2022 Appointment Pulmonary Rusty Mattson M.D. [address] [place] [phone] documented as of this encounter Procedures Procedure Name Priority Date/Time Associated Comments Diagnosis PROTHROMBIN TIME Routine 02/26/2015 8:00 AM Resul ts for this (PT), P CDT procedure are i n the results section. documented in this encounter Results (ABNORMAL) PT (Prothrombin Time) with INR (02/26/2015 8:00 AM CDT) [facility] Method Time Signature Prothrombin 45.4 SECONDS [...]
--- OUTSIDE RECORDS SUMMARY | 2022-05-25 21:08 | XMS_ITS | Encounter Summary ---
:1975 Author Organization [facility] Address [address] [place] [address] Care Team Providers Name Role Phone Unavailable Primary Care Provider Unavailable Encounter Details Date Type Department Care Team Description 01/15/2015 Hospital Encounter HX [facility] Marsha Henriquez M.D. [address] [place], [place] [address] (Wo rk) Social [...] at Date Recorded Female 05/03/2022 7:07 PM PLANNING MANAGEMENT IT SPECIALIST documented as of this encounter Last [...] or change to current plan? Thanks! Source: [facility] POWERCHART Document Id: [id number] Miscellaneous - Wali Mcclellan - 01/15/2015 11:22 [...] darya BURGESS JM WALI Ervin RN - 01/15/2015 11:22 CDT WALI MCCLELLAN [...] a long time, no bleeding now left [facility] for Fabiola,call if changes Recommend Recheck : [...] Other: Plan completed by : darya lackey [facility]/pharmacy WALI MCCLELLAN RN - 01/15/2015 11:22 CDT WALI MCCLELLAN RN - 01/15/2015 11:22 CDT WALI MCCLELLAN RN - 01/15/2015 11:22 CDT WALI MCCLELLAN RN - 01/15/2015 11:22 CDT Date : 04/17/2014 CDT 04/24/2014 CDT 05/01/2014 PLANNING MANAGEMENT IT SPECIALIST 05/15/2014 PLANNING MANAGEMENT IT SPECIALIST Location of INR sample : Lab [...] will trynoted dose called to mom Fabiola [phone] called to Fabiola/no changes Called to mother/Fabiola, not awareof any changes Recommend Recheck : One week One week Two weeks Two weeks Plan completed by : WALI CHOI RN - 01/15/2015 11:22 CDT WALI MCCLELLAN RN - 01/15/2015 11:22 CDT WALI MCCLELLAN RN - 01/15/2015 11:22 CDT WALI MCCLELLAN RN - 01/15/2015 11:22 CDT Date : 06/03/2014 PLANNING MANAGEMENT IT SPECIALIST 06/05/2014 PLANNING MANAGEMENT IT SPECIALIST 06/10/2014 PLANNING MANAGEMENT IT SPECIALIST 06/11/2014 PLANNING MANAGEMENT IT SPECIALIST Location of INR sample : Lab [...] Fabiola granados. Hue will be staying in [place] 2wks post-surgery & have INR drawn there. [...] - 01/15/2015 11:22 CDT Date : 06/14/2014 PLANNING MANAGEMENT IT SPECIALIST 06/14/2014 PLANNING MANAGEMENT IT SPECIALIST 06/16/2014 PLANNING MANAGEMENT IT SPECIALIST 06/23/2014 PLANNING MANAGEMENT IT SPECIALIST Location of INR sample : Clinic [...] Warfarin Dose : 20 20 Comment : [place] lab called with INR result from 06/13, reported they left a message with Dr. Henriquez and hadn't heard back, spoke with mother, Fabiola, and gave doses, continue Lovenox and repeat INR 06/16, message left with INR clinic in to contact CF Please contact [place] lab on 06/16 for result and may call Fabiola at [phone] with instructions call to Fabiola/will stop Lovenox [...] by : WALI Steven LM, RN - 01/15/2015 11:22 CDWALI OGLESBY RN - 01/15/2015 11:22 WALI GALINDO RN - 01/15/2015 11:22 CDT WALI MCCLELLAN RN - 01/15/2015 11:22 CDT Date : 07/10/2014 PLANNING MANAGEMENT IT SPECIALIST 07/17/2014 PLANNING MANAGEMENT IT SPECIALIST 07/31/2014 PLANNING MANAGEMENT IT SPECIALIST 09/11/2014 CDT Location of INR sample [...] is she is 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 Eko/no bleeding/consult with Quintin/Pharmacy and called Mom with orders Per Meredith Hernandez, no changes, has been drinking some Kiwi Juice, no bleeding/consult with Quintin/Pharmacy Called to [place] /Fabiola, no changes, [facility] Recommend Recheck : Three weeks One week [...] : 09/05/2013 CDT WALI MCCLELLAN RN - 01/15/2015 11:22 CDT Changes / Problems Changes/Problems Since Last Visit : None Been Scheduled For : None Missed Coumadin Doses : None Change In Intake : None Change In Medication : Over the Counter Medications Have You Had : None Plans to Travel : No WALI MCCLELLAN RN - 01/15/2015 11:22 CDT [facility] POWERCHART Document Id: [id number] CDT!377 Miscellaneous - Wali Mcclellan - 01/15/2015 [...] INR 1.6 INR (0.8 - 1.1) Source: [facility] POWERCHART Document Id: [id number] documented in this encounter Plan of Treatment Upcoming Encounters Date Type Specialty Care Team Description 06/22/2022 Appointment Laboratory Medicine Rusty Vee M.D. [address] [place] [phone] 06/22/2022 Diagnostic Pulmonary Medicine Rusty Vee M.D. [address] [place] [phone] 06/22/2022 Diagnostic Pulmonary Medicine Rusty Vee M.D. [address] [place] [phone] 06/22/2022 Appointment Radiology Rusty Vee M.D. [address] [place] [phone] 06/23/2022 Clinical Communication Admitting/Central Scheduling 06/28/2022 Appointment Pulmonary Medicine Rusty Vee M.D. [address] [place] [phone] 06/28/2022 Appointment Pulmonary Rusty Mattson M.D. [address] [place] [phone] documented as of this encounter Procedures Procedure Name Priority Date/Time Associated Comments Diagnosis PROTHROMBIN TIME Routine 01/15/2015 8:10 AM Resul ts for this (PT), P CDT procedure are i n the results section. documented in this encounter Results (ABNORMAL) PT (Prothrombin Time) with INR (01/15/2015 8:10 AM CDT) [facility] Method Time Signature Prothrombin 17.5 SECONDS POWERCHART [...]
--- OUTSIDE RECORDS SUMMARY | 2022-05-25 21:08 | XMS_ITS | Encounter Summary ---
:1975 Author Organization [facility] Address [address] [place] [address] Care Team Providers Name Role Phone Unavailable Primary Care Provider Unavailable Encounter Details Date Type Department Care Team Description 11/27/2014 Hospital Encounter HX [facility] Marsha Henriquez M.D. [address] [place], [place] [address] (Wo rk) Social History [...] at Date Recorded Female 05/03/2022 7:07 PM BENEFITS COUNSELOR documented as of this encounter Last Filed [...] a long time, no bleeding now left [facility] for Fabiola,call if changes Recommend Recheck : [...] lackey LM /pharmacy WALI MCCLELLAN RN - 11/27/2014 16:31 CDT WALI MCCLELLAN RN - 11/27/2014 16:31 CDT WALI MCCLELLAN RN - 11/27/2014 16:31 CDT WALI MCCLELLAN RN - 11/27/2014 16:31 CDT Date : 04/17/2014 CDT 04/24/2014 CDT 05/01/2014 BENEFITS COUNSELOR 05/15/2014 BENEFITS COUNSELOR Location of INR sample : Lab Lab [...] will trynoted dose called to mom Fabiola [phone] called to Fabiola/no changes Called to mother/Fabiola, not awareof any changes Recommend Recheck : One week One week Two weeks Two weeks Plan completed by : MARIA GUADALUPE PRECIADO WALI MCCLELLAN RN - 11/27/2014 16:31 CDT WALI MCCLELLAN RN - 11/27/2014 16:31 CDT WALI MCCLELLAN RN - 11/27/2014 16:31 CDT WALI MCCLELLAN RN - 11/27/2014 16:31 CDT Date : 06/03/2014 BENEFITS COUNSELOR 06/05/2014 BENEFITS COUNSELOR 06/10/2014 BENEFITS COUNSELOR 06/11/2014 BENEFITS COUNSELOR Location of INR sample : Lab Type [...] Called motherFabiola. Hue will be staying in [place] 2wks post-surgery & have INR drawn there. [...] lovenox tomorrow AM as ordered. INR in [place] for next several weeks as pt will be recovering there. Recommend Recheck : Other: depending on Dr. Henriquez's preop. Other: 06/18 Other: 06/13/14 Plan completed by : WALI TYLER RN - 11/27/2014 16:31 CDT WALI MCCLELLAN RN - 11/27/2014 16:31 CDT WALI MCCLELLAN RN - 11/27/2014 16:31 CDT WALI MCCLELLAN RN - 11/27/2014 16:31 CDT Date : 06/14/2014 BENEFITS COUNSELOR 06/14/2014 BENEFITS COUNSELOR 06/16/2014 BENEFITS COUNSELOR 06/23/2014 BENEFITS COUNSELOR Location of INR sample : Clinic Lab Lab Type of Sample : Venous Venous INR Result : 1.3 on 06/13 2.4 faxed from lab 2.0 Warfarin Dose : (pt took 2.5mg 06/13) 5mg Sat and 5mg Sun (06/14 and 06/15) 5mg Mon and 2.5mg all other days 5mg Mon and 2.5mg all other days Total Weekly Warfarin Dose : 20 20 Comment : [place] lab called with INR result from 06/13, reported they left a message with Dr. Henriquez and hadn't heard back, spoke with Fabiola granados, and gave doses, continue Lovenox and repeat INR 06/16, message left with INR clinic in [place] to contact CF Please contact [place] lab on 06/16 for result and may call Fabiola at [phone] with instructions call to Fabiola/will stop Lovenox [...] by : WALI Steven LM RN - 11/27/2014 16:31 CDT WALI MCCLELLAN RN - 11/27/2014 16:31 CDT WALI MCCLELLAN RN - 11/27/2014 16:31 CDT WALI MCCLELLAN RN - 11/27/2014 16:31 CDT Date : 07/10/2014 BENEFITS COUNSELOR 07/17/2014 BENEFITS COUNSELOR 07/31/2014 BENEFITS COUNSELOR 09/11/2014 CDT Location of INR sample : [...] MCCLELLAN RN - 11/27/2014 16:31 CDT Source: [facility] [employer] Document Id: [id number] CDT![id number] Miscellaneous - Wali Mcclellan - 11/27/2014 [...] INR 2.1 INR (0.9 - 1.1) Source: [facility] [employer] Document Id: [id number] Electronically signed by Lay [facility] Centersylvia [employer] Mill Worker [id number] at 11/21/2016 3:30 PM CDT documented in this encounter Plan of Treatment Upcoming Encounters Date Type Specialty Care Team Description 06/22/2022 Appointment Laboratory Medicine Rusty Vee M.D. [address] [place] [phone] 06/22/2022 Diagnostic Pulmonary Medicine Rusty Vee M.D. [address] [place] [phone] 06/22/2022 Diagnostic Pulmonary Medicine Rusty Vee M.D. [address] [place] [phone] 06/22/2022 Appointment Radiology Rusty Vee M.D. [address] [place] [phone] 06/23/2022 Clinical Communication Admitting/Central Scheduling 06/28/2022 Appointment Pulmonary Medicine Rusty Vee M.D. [address] [place] [phone] 06/28/2022 Appointment Pulmonary Medicine Rusty Vee M.D. [address] [place] [phone] documented as of this encounter Procedures Procedure Name Priority Date/Time Associated Comments Diagnosis PROTHROMBIN TIME Routine 11/27/2014 8:12 AM Resul ts for this (PT), P CDT procedure are i n the results section. documented in this encounter Results (ABNORMAL) PT (Prothrombin Time) with INR (11/27/2014 8:12 AM CDT) [facility] Method Time Signature Prothrombin 22.6 (H) [...]
--- OUTSIDE RECORDS SUMMARY | 2022-05-25 21:08 | XMS_ITS | Encounter Summary ---
:1975 Author Organization [facility] Address [address] [place] [address] Care Team Providers Name Role Phone Unavailable Primary Care Provider Unavailable Encounter Details Date Type Department Care Team Description 03/19/2015 Hospital Encounter HX [facility] Marsha Henriquez M.D. [address] [place], [place] [address] (Wo rk) Social History [...] at Date Recorded Female 05/03/2022 7:07 PM GARMENT PARTS CUTTER HAND documented as of this encounter Last Filed [...] completed by : WALI Tracy RN - 03/19/2015 12:22 CDT WALI MCCLELLAN [...] long time, no bleeding now [place] [facility] [place],call if changes Recommend Recheck : [...] lackey LM /pharmacy WALI MCCLELLAN RN - 03/19/2015 12:22 CDT WALI MCCLELLAN RN - 03/19/2015 12:22 CDT WALI MCCLELLAN RN - 03/19/2015 12:22 CDT WALI MCCLELLAN RN - 03/19/2015 12:22 CDT Date : 04/17/2014 CDT 04/24/2014 CDT 05/01/2014 GARMENT PARTS CUTTER HAND 05/15/2014 GARMENT PARTS CUTTER HAND Location of INR sample : Lab Lab [...] will trynoted dose called to mom Fabiola [phone] called to Fabiola/no changes Called to mother/Fabiola, not awareof any changes Recommend Recheck : One week One week Two weeks Two weeks Plan completed by : MARIA GUADALUPE PRECIADO WALI MCCLELLAN RN - 03/19/2015 12:22 CDT WALI MCCLELLAN RN - 03/19/2015 12:22 CDT WALI MCCLELLAN RN - 03/19/2015 12:22 CDT WALI MCCLELLAN RN - 03/19/2015 12:22 CDT Date : 06/03/2014 GARMENT PARTS CUTTER HAND 06/05/2014 GARMENT PARTS CUTTER HAND 06/10/2014 GARMENT PARTS CUTTER HAND 06/11/2014 GARMENT PARTS CUTTER HAND Location of INR sample : Lab Type [...] Called motherFabiola. Hue will be staying in [place] 2wks post-surgery & have INR drawn there. [...] lovenox tomorrow AM as ordered. INR in [place] for next several weeks as pt will be recovering there. Recommend Recheck : Other: depending on Dr. Henriquez's preop. Other: 06/18 Other: 06/13/14 Plan completed by : WALI TYLER RN - 03/19/2015 12:22 CDT WALI MCCLELLAN RN - 03/19/2015 12:22 CDT WALI MCCLELLAN RN - 03/19/2015 12:22 CDT WALI MCCLELLAN RN - 03/19/2015 12:22 CDT Date : 06/14/2014 GARMENT PARTS CUTTER HAND 06/14/2014 GARMENT PARTS CUTTER HAND 06/16/2014 GARMENT PARTS CUTTER HAND 06/23/2014 GARMENT PARTS CUTTER HAND Location of INR sample : Clinic Lab Lab Type of Sample : Venous Venous INR Result : 1.3 on 06/13 2.4 faxed from lab 2.0 Warfarin Dose : (pt took 2.5mg 06/13) 5mg Sat and 5mg Sun (06/14 and 06/15) 5mg Mon and 2.5mg all other days 5mg Mon and 2.5mg all other days Total Weekly Warfarin Dose : 20 20 Comment : [place] lab called with INR result from 06/13, reported they left a message with Dr. Henriquez and hadn't heard back, spoke with Fabiola granados, and gave doses, continue Lovenox and repeat INR 06/16, message left with INR clinic in [place] to contact CF Please contact [place] lab on 06/16 for result and may call Fabiola at [phone] with instructions call to Fabiola/will stop Lovenox [...] - 03/19/2015 12:22 CDT Date : 07/10/2014 GARMENT PARTS CUTTER HAND 07/17/2014 GARMENT PARTS CUTTER HAND 07/31/2014 GARMENT PARTS CUTTER HAND 09/11/2014 CDT Location of INR sample : [...] MCCLELLAN RN - 03/19/2015 12:22 CDT Source: [facility] POWERCHART Document Id: [id number] CDT![id number] Miscellaneous - Wali Mcclellan - 03/19/2015 [...] INR 2.6 INR (0.9 - 1.1) Source: [facility] POWERCHART Document Id: [id number] documented in this encounter Plan of Treatment Upcoming Encounters Date Type Specialty Care Team Description 06/22/2022 Appointment Laboratory Medicine Rusty Vee M.D. [address] [place] [phone] 06/22/2022 Diagnostic Pulmonary Medicine Rusty Vee M.D. [address] [place] [phone] 06/22/2022 Diagnostic Pulmonary Medicine Rusty Vee M.D. [address] [place] [phone] 06/22/2022 Appointment Radiology Rusty Vee M.D. [address] [place] [phone] 06/23/2022 Clinical Communication Admitting/Central Scheduling 06/28/2022 Appointment Pulmonary Medicine Rusty Vee M.D. [address] [place] [phone] 06/28/2022 Appointment Pulmonary Medicine Rusty Vee M.D. [address] [place] [phone] documented as of this encounter Procedures Procedure Name Priority Date/Time Associated Comments Diagnosis PROTHROMBIN TIME Routine 03/19/2015 8:10 AM Resul ts for this (PT), P CDT procedure are i n the results section. documented in this encounter Results (ABNORMAL) PT (Prothrombin Time) with INR (03/19/2015 8:10 AM CDT) [facility] gist Method Time Signature Prothrombin 28.3 [...]
--- OUTSIDE RECORDS SUMMARY | 2022-05-25 21:08 | XMS_ITS | Encounter Summary ---
:1975 Author Organization [facility] Address [address] [place] [address] Care Team Providers Name Role Phone Unavailable Primary Care Provider Unavailable Encounter Details Date Type Department Care Team Description 01/22/2015 Hospital Encounter [facility] Marsha Henriquez M.D. [address] [place], [place] [address] (Wo rk) Social History [...] at Date Recorded Female 05/03/2022 7:07 PM HOT AIR FURNACE INSTALLER REPAIRER documented as of this encounter Last Filed [...] long time, no bleeding [place] [facility] [place] [...] lackey LM /pharmacy WALI MCCLELLAN RN - 01/22/2015 12:56 CDT WALI MCCLELLAN RN - 01/22/2015 12:56 CDT WALI MCCLELLAN RN - 01/22/2015 12:56 CDT WALI MCCLELLAN RN - 01/22/2015 12:56 CDT Date : 04/17/2014 CDT 04/24/2014 CDT 05/01/2014 HOT AIR FURNACE INSTALLER REPAIRER 05/15/2014 HOT AIR FURNACE INSTALLER REPAIRER Location of INR sample : Lab Lab [...] will trynoted dose called to mom Fabiola [phone] called to Fabiola/no changes Called to mother/Fabiola, not awareof any changes Recommend Recheck : One week One week Two weeks Two weeks Plan completed by : MARIA GUADALUPE PRECIADO WALI MCCLELLAN RN - 01/22/2015 12:56 CDT WALI MCCLELLAN RN - 01/22/2015 12:56 CDT WALI MCCLELLAN RN - 01/22/2015 12:56 CDT WALI MCCLELLAN RN - 01/22/2015 12:56 CDT Date : 06/03/2014 HOT AIR FURNACE INSTALLER REPAIRER 06/05/2014 HOT AIR FURNACE INSTALLER REPAIRER 06/10/2014 HOT AIR FURNACE INSTALLER REPAIRER 06/11/2014 HOT AIR FURNACE INSTALLER REPAIRER Location of INR sample : Lab Type [...] Called motherFabiola. Hue will be staying in [place] 2wks post-surgery & have INR drawn there. [...] lovenox tomorrow AM as ordered. INR in [place] for next several weeks as pt will be recovering there. Recommend Recheck : Other: depending on Dr. Henriquez's preop. Other: 06/18 Other: 06/13/14 Plan completed by : WALI TYLER RN - 01/22/2015 12:56 CDT WALI MCCLELLAN RN - 01/22/2015 12:56 CDT WAIL MCCLELLAN RN - 01/22/2015 12:56 CDT WALI MCCLELLAN RN - 01/22/2015 12:56 CDT Date : 06/14/2014 HOT AIR FURNACE INSTALLER REPAIRER 06/14/2014 HOT AIR FURNACE INSTALLER REPAIRER 06/16/2014 HOT AIR FURNACE INSTALLER REPAIRER 06/23/2014 HOT AIR FURNACE INSTALLER REPAIRER Location of INR sample : Clinic Lab Lab Type of Sample : Venous Venous INR Result : 1.3 on 06/13 2.4 faxed from lab 2.0 Warfarin Dose : (pt took 2.5mg 06/13) 5mg Sat and 5mg Sun (06/14 and 06/15) 5mg Mon and 2.5mg all other days 5mg Mon and 2.5mg all other days Total Weekly Warfarin Dose : 20 20 Comment : [place] lab called with INR result from 06/13, reported they left a message with Dr. Henriquez and hadn't heard back, spoke with Fabiola granados, and gave doses, continue Lovenox and repeat INR 06/16, message left with INR clinic in [place] to contact CF Please contact [facility] lab on 06/16 for result and may call Fabiola at [phone] with instructions call to Fabiola/will stop Lovenox injections and take noted dose/pt has an appt here in [place] 06/23 so will do lab appt here that day Called to Fabiola/ Hue will be back at [facility] [place] by next draw. will have done on . no changes to meds/diet. Recommend Recheck : Two days One week Two weeks Plan completed by : WALI Steven LM, RN - 01/22/2015 12:56 CDT WALI MCCLELLAN RN - 01/22/2015 12:56 CDT WALI MCCLELLAN RN - 01/22/2015 12:56 CDT WALI MCCLELLAN RN - 01/22/2015 12:56 CDT Date : 07/10/2014 HOT AIR FURNACE INSTALLER REPAIRER 07/17/2014 HOT AIR FURNACE INSTALLER REPAIRER 07/31/2014 HOT AIR FURNACE INSTALLER REPAIRER 09/11/2014 CDT Location of INR sample : [...] MCCLELLAN RN - 01/22/2015 12:56 CDT Source: [facility] [employer] Document Id: [id number] CDT!387 Miscellaneous - Wali Mcclellan - 01/22/2015 [...] INR 2.4 INR (0.9 - 1.1) Source: [facility] [employer] Document Id: [id number] Electronically signed by Lay [facility] Health Systemsylvia Organic Gardening Teacher [id number] at 11/20/2016 11:45 PM CDT documented in this encounter Plan of Treatment Upcoming Encounters Date Type Specialty Care Team Description 06/22/2022 Appointment Laboratory Medicine Rusty Vee M.D. [address] [place] [phone] 06/22/2022 Diagnostic Pulmonary Medicine Rusty Vee M.D. [address] [place] [phone] 06/22/2022 Diagnostic Pulmonary Medicine Rusty Vee M.D. [address] [place] [phone] 06/22/2022 Appointment Radiology Rusty Vee M.D. [address] [place] [phone] 06/23/2022 Clinical Communication Admitting/Central Scheduling 06/28/2022 Appointment Pulmonary Medicine Rusty Vee M.D. [address] [place] [phone] 06/28/2022 Appointment Pulmonary Medicine Rusty Vee M.D. [address] [place] [phone] documented as of this encounter Procedures Procedure Name Priority Date/Time Associated Comments Diagnosis PROTHROMBIN TIME Routine 01/22/2015 8:00 AM Resul ts for this (PT), P CDT procedure are i n the results section. documented in this encounter Results (ABNORMAL) PT (Prothrombin Time) with INR (01/22/2015 8:00 AM CDT) [facility] Method Time Signature Prothrombin 26.6 (H) [...]
--- OUTSIDE RECORDS SUMMARY | 2022-05-25 21:08 | XMS_ITS | Encounter Summary ---
:1975 Author Organization [facility] Address [address] [place] [address] Care Team Providers Name Role Phone Unavailable Primary Care Provider Unavailable Encounter Details Date Type Department Care Team Description 08/21/2014 Hospital Encounter [facility] Marsha Garibay M.D. [address] [place], [place] [address] (Wo rk) Social History [...] at Date Recorded Female 05/03/2022 7:07 PM PROMPT CARE RN documented as of this encounter Last Filed Vital Signs Vital Sign Reading Time Taken Comments Blood Pressure - - Pulse - - Temperature - - Respiratory Rate - - Oxygen Saturation - - Inhaled Oxygen Concentration - - Weight - - Height 157 cm (5' 1.81) 08/21/2014 6:59 AM PROMPT CARE RN Body Mass Index - - documented in [...] DAVID RN on 21 August 2014 12:01:39 PROMPT CARE RN Done From: KHADAR MEDINA RN ( Anticoagulation Nurse) To: Anticoagulation Nurse; Sent: 08/21/2014 10:44:38 PROMPT CARE RN Show up: 08/21/2014 10:45:00 PROMPT CARE RN Subject: Results Notification Results: Date Result Name Value Ref Range 08/21/2014 08:07 PT 32.4 second(s) (8.7 - 11.8) 08/21/2014 08:07 INR 2.9 INR (0.9 - 1.1) Source: [facility] POWERCHART Document Id: [id number] documented in this encounter Plan of Treatment Upcoming Encounters Date Type Specialty Care Team Description 06/22/2022 Appointment Laboratory Medicine Rusty Vee M.D. [address] [place] [phone] 06/22/2022 Diagnostic Pulmonary Medicine Rusty Vee M.D. [address] [place] [phone] 06/22/2022 Diagnostic Pulmonary Medicine Rusty Vee M.D. [address] [place] [phone] 06/22/2022 Appointment Radiology Rusty Vee M.D. [address] [place] [phone] 06/23/2022 Clinical Communication Admitting/Central Scheduling 06/28/2022 Appointment Pulmonary Medicine Rusty Vee M.D. [address] [place] [phone] 06/28/2022 Appointment Pulmonary Medicine Rusty Vee M.D. [address] [place] [phone] documented as of this encounter Procedures Procedure Name Priority Date/Time Associated Comments Diagnosis PROTHROMBIN TIME Routine 08/21/2014 8:07 AM Resul ts for this (PT), P PROMPT CARE RN procedure are i n the results section. documented in this encounter Results (ABNORMAL) PT (Prothrombin Time) with INR (08/21/2014 8:07 AM PROMPT CARE RN) [facility] Method Time Signature Prothrombin 32.4 (H) [...] / Volume Laterality Blood 08/21/2014 8:07 AM PROMPT CARE RN Sridhar Garibay M.D. LAB BLOOD ADD-ON Performing Organization Address City/State/ZIP Code Phon e Number POWERCHART documented in this encounter Visit Diagnoses Not on filedocumented in this encounter
--- OUTSIDE RECORDS SUMMARY | 2022-05-25 21:08 | XMS_ITS | Encounter Summary ---
:1975 Author Organization [facility] Address [address] [place] [address] Care Team Providers Name Role Phone Unavailable Primary Care Provider Unavailable Encounter Details Date Type Department Care Team Description 09/11/2014 Hospital Encounter HX [facility] Marsha Henriquez M.D. [address] [place], [place] [address] (Wo rk) Social History [...] at Date Recorded Female 05/03/2022 7:07 PM SEMICONDUCTOR PACKAGES LEAK TESTER documented as of this encounter Last Filed [...] Notes Miscellaneous - Wali Zapata R.N. - 09/11/2014 4:23 PM CDT INR orders [...] of Pills to take each day: SUN: 12 MON: 1 TUE: 1/2 WED: 1/2 THUR: 1/2 FRI: 1/2 SAT: 1/2 Your next INR appointment is scheduled for: , 09/25/14 at [facility]. INRs drawn after 4:00PM might not be reported to the patient until the following day. If you have questions regarding any of the above information or feel the information is not accurateplease call [phone] or ext. [phone]. [facility] in [place] INR Clinic staff: Wali Mcclellan, RN; Wali Zapata, ANGELINE; Eliana Farooq, RN; Eliana Myers, ANGELINE; Ermelinda Casas, ANGELINE; Mima Campo, ANGELINE; Khadar Banda, RN Source: [facility] POWERCHART Document Id: [id number] Miscellaneous - Wali Zapata R.N. - 09/11/2014 4:23 PM CDT Anticoagulation [...] darya BURGESS JM WALI Cortez RN - 09/11/2014 16:23 CDT WALI ZAPATA [...] Mom, she is going to check with Doriat to see if she is drinking Cranberry [...] Other: Plan completed by : darya lackey [facility]/pharmacy WALI ZAPATA RN - 09/11/2014 16:23 CDT WALI ZAPATA RN - 09/11/2014 16:23 CDT WALI ZAPATA RN - 09/11/2014 16:23 CDT WALI ZAPATA RN - 09/11/2014 16:23 CDT Date : 04/17/2014 CDT 04/24/2014 CDT 05/01/2014 SEMICONDUCTOR PACKAGES LEAK TESTER 05/15/2014 SEMICONDUCTOR PACKAGES LEAK TESTER Location of INR sample : Lab Lab [...] will trynoted dose called to mom Fabiola [phone] called to Fabiola/no changes Called to mother/Fabiola, not awareof any changes Recommend Recheck : One week One week Two weeks Two weeks Plan completed by : MARIA GUADALUPE FITCH OZZY WALI LEES RN - 09/11/2014 16:23 CDWALI CABRERA RN - 09/11/2014 16:23 WALI KRISHNA RN - 09/11/2014 16:23 PATRICIAT WALI ZAPATA RN - 09/11/2014 16:23 CDT Date : 06/03/2014 SEMICONDUCTOR PACKAGES LEAK TESTER 06/05/2014 SEMICONDUCTOR PACKAGES LEAK TESTER 06/10/2014 SEMICONDUCTOR PACKAGES LEAK TESTER 06/11/2014 SEMICONDUCTOR PACKAGES LEAK TESTER Location of INR sample : Lab Type [...] Called motherFabiola. Dorita will be staying in [place] 2wks post-surgery & have INR drawn there. [...] lovenox tomorrow AM as ordered. INR in [place] for next several weeks as pt will be recovering there. Recommend Recheck : Other: depending on Dr. Henriquez's preop. Other: 06/18 Other: 06/13/14 Plan completed by : WALI FONTAINE RN - 09/11/2014 16:23 CDT WALI ZAPATA RN - 09/11/2014 16:23 CDT WALI ZAPATA RN - 09/11/2014 16:23 CDT WALI ZAPATA RN - 09/11/2014 16:23 CDT Date : 06/14/2014 SEMICONDUCTOR PACKAGES LEAK TESTER 06/14/2014 SEMICONDUCTOR PACKAGES LEAK TESTER 06/16/2014 SEMICONDUCTOR PACKAGES LEAK TESTER 06/23/2014 SEMICONDUCTOR PACKAGES LEAK TESTER Location of INR sample : Clinic Lab Lab Type of Sample : Venous Venous INR Result : 1.3 on 06/13 2.4 faxed from lab 2.0 Warfarin Dose : (pt took 2.5mg 06/13) 5mg Sat and 5mg Sun (06/14 and 06/15) 5mg Mon and 2.5mg all other days 5mg Mon and 2.5mg all other days Total Weekly Warfarin Dose : 20 20 Comment : [facility] called with INR result from 06/13, reported they left a message with Dr. Henriquez and hadn't heard back, spoke with mother, Fabiola, and gave doses, continue Lovenox and repeat INR 06/16, message left with INR clinic in [place] to contact CF Please contact [facility] lab on 06/16 for result and may call Fabiola at [phone] with instructions call to Fabiola/will stop Lovenox injections and take noted dose/pt has an appt here in [place] 06/23 so will do lab appt here that day Called to Fabiola/ Dorita will be back at 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 - 09/11/2014 11:48 AM CDT INR order renewal Document Contains Addenda Addendum by TASHA HENRIQUEZ MD on 11 September 2014 12:19:16 CDT From: TASHA HENRIQUEZ MD Sent: 09/11/2014 12:19:16 CDT Subject: RE:INR order renewal Approved Order:Anticoagulation Clinic Order Details: 09/11/2014 12:19 CDT, 09/12/2015 23:59 CDT, 2 - 3, g. Lifelong, DVT, lower extremity Primary Hypercoagulable State, [facility] Signed by TASHA HENRIQUEZ MD 09/11/2014 12:19:15 From: WALI ZAPATA RN ( Anticoagulation Nurse) To: TASHA HENRIQUEZ MD; Sent: 09/11/2014 11:48:57 CDT Subject: INR order renewal On hold pending signature Order:Anticoagulation Clinic Order Details: 09/11/2014 11:48 CDT, 09/12/2015 23:59 CDT, 2 - 3, g. Lifelong, DVT, lower extremity Primary Hypercoagulable State, [facility] Please approve the annual INR clinic renewal order if you agree. Source: [facility] POWERCHART Document Id: [id number] Enriquetacelllucian - Khadar Banda R.N. - 09/11/2014 10:04 AM CDT Results [...] INR 1.8 INR (0.8 - 1.1) Source: [facility] POWERCHART Document Id: [id number] Electronically signed by Conversion, [facility] Third Loader [id number] at 11/21/2016 2:04 PM CDT documented in this encounter Plan of Treatment Upcoming Encounters Date Type Specialty Care Team Description 06/22/2022 Appointment Laboratory Medicine Rusty Vee M.D. [address] [place] [phone] 06/22/2022 Diagnostic Pulmonary Medicine Rusty Vee M.D. [address] [place] [phone] 06/22/2022 Diagnostic Pulmonary Medicine Rusty Vee M.D. [address] [place] [phone] 06/22/2022 Appointment Radiology Rusty Vee M.D. [address] [place] [phone] 06/23/2022 Clinical Communication Admitting/Central Scheduling 06/28/2022 Appointment Pulmonary Medicine Rusty Vee M.D. [address] [place] [phone] 06/28/2022 Appointment Pulmonary Medicine Rusty Vee M.D. [address] [place] [phone] documented as of this encounter Procedures Procedure Name Priority Date/Time Associated Comments Diagnosis PROTHROMBIN TIME Routine 09/11/2014 8:10 AM Resul ts for this (PT), P CDT procedure are i n the results section. documented in this encounter Results (ABNORMAL) PT (Prothrombin Time) with INR (09/11/2014 8:10 AM CDT) [facility] Method Time Signature Prothrombin 19.1 SECONDS [...]
--- OUTSIDE RECORDS SUMMARY | 2022-05-25 21:08 | XMS_ITS | Encounter Summary ---
:1975 [facility] Address [address] [place] [address] Care Team Providers Name Role Phone Unavailable Primary Care Provider Unavailable Encounter Details Date Type Department Care Team Description 12/18/2014 Hospital Encounter [facility]X [facility] Marsha Henriquez M.D. [address] [place], [place] [address] (Wo rk) Social History [...] at Date Recorded Female 05/03/2022 7:07 PM JUKE BOX MECHANIC documented as of this encounter Last Filed [...] Notes Miscellaneous - Hanna Truong R.N. - 12/18/2014 12:50 PM CDT Anticoagulation Patient [...] darya BURGESS JM HANNA Rivera RN - 12/18/2014 12:50 CDT HANNA TRUONG [...] lackey LM /pharmacy HANNA TRUONG RN - 12/18/2014 12:50 CDT HANNA TRUONG RN - 12/18/2014 12:50 CDT HANNA TRUNOG RN - 12/18/2014 12:50 CDT HANNA TRUONG RN - 12/18/2014 12:50 CDT Date : 04/17/2014 CDT 04/24/2014 CDT 05/01/2014 JUKE BOX MECHANIC 05/15/2014 JUKE BOX MECHANIC Location of INR sample : Lab [...] will trynoted dose called to mom Fabiola [phone] called to Fabiola/no changes Called to mother/Fabiola, not awareof any changes Recommend Recheck : One week One week Two weeks Two weeks Plan completed by : HANNA CLAY RN - 12/18/2014 12:50 CDT HANNA TRUONG RN - 12/18/2014 12:50 CDT HANNA TRUONG RN - 12/18/2014 12:50 CDT HANNA TRUONG RN - 12/18/2014 12:50 CDT Date : 06/03/2014 JUKE BOX MECHANIC 06/05/2014 JUKE BOX MECHANIC 06/10/2014 JUKE BOX MECHANIC 06/11/2014 JUKE BOX MECHANIC Location of INR sample : Lab [...] Fabiola granados. Hue will be staying in [place] 2wks post-surgery & have INR drawn there. [...] lovenox tomorrow AM as ordered. INR in [place] for next several weeks as pt will be recovering there. Recommend Recheck : Other: depending on Dr. Henriquez's preop. Other: 06/18 Other: 06/13/14 Plan completed by : HANNA MARTIN RN - 12/18/2014 12:50 CDT HANNA TRUONG RN - 12/18/2014 12:50 CDT HANNA TRUONG RN - 12/18/2014 12:50 CDT HANNA TRUONG RN - 12/18/2014 12:50 CDT Date : 06/14/2014 JUKE BOX MECHANIC 06/14/2014 JUKE BOX MECHANIC 06/16/2014 JUKE BOX MECHANIC 06/23/2014 JUKE BOX MECHANIC Location of INR sample : Clinic [...] Warfarin Dose : 20 20 Comment : [facility] lab called with INR result from 06/13, reported they left a message with Dr. Henriquez and hadn't heard back, spoke with Fabiola granados, and gave doses, continue Lovenox and repeat INR 06/16, message left with INR clinic in [place] to contact CF Please contact [facility] lab on 06/16 for result and may call Fabiola at [phone] with instructions call to Fabiola/will stop Lovenox injections and take noted dose/pt has an appt here in [place] 06/23 so will do lab appt here that day Called to Fabiola/ Hue will be back at [facility] by next draw. will have done on . no changes to meds/diet. Recommend Recheck : Two days One week Two weeks Plan completed by : HANNA Neri LM RN - 12/18/2014 12:50 CDT HANNA TRUONG RN - 12/18/2014 12:50 CDT HANNA TRUONG RN - 12/18/2014 12:50 CDT HANNA TRUONG RN - 12/18/2014 12:50 CDT Date : 07/10/2014 JUKE BOX MECHANIC 07/17/2014 JUKE BOX MECHANIC 07/31/2014 JUKE BOX MECHANIC 09/11/2014 CDT Location of INR sample [...] : 09/05/2013 CDT HANNA TRUONG RN - 12/18/2014 12:50 CDT Source: [facility] POWERCHART Document Id: [id number] CDT![id number] Miscellaneous - Hanna Truong R.N. - 12/18/2014 9:58 AM CDT Results Notification Document Contains Addenda Addendum by HANNA TRUONG RN on 18 December 2014 12:54:17 CDT LM for Fabiola on her identified VM. From: AHNNA TRUONG RN ( Anticoagulation Nurse) To: Anticoagulation Nurse; Sent: 12/18/2014 09:58:23 CDT Show up: 12/18/2014 09:59:00 CDT Subject: Results Notification Results: Date Result Name Value Ref Range 12/18/2014 08:00 PT 23.4 second(s) 12/18/2014 08:00 INR 2.1 INR (0.8 - 1.1) Source: [facility] KartRocketCHART Document Id: [id number] Miscellaneous - Khadar Banda, R.N. - 12/18/2014 9:58 AM CDT Results Notification From: KHADAR BANDA RN ( Anticoagulation Nurse) To: Anticoagulation Nurse; Sent: 12/18/2014 09:58:17 CDT Show up: 12/18/2014 09:59:00 CDT Subject: Results Notification Results: Date Result Name Value Ref Range 12/18/2014 08:00 PT 23.4 second(s) 12/18/2014 08:00 INR 2.1 INR (0.8 - 1.1) Source: [facility] POWERCHART Document Id: [id number] documented in this encounter Plan of Treatment Upcoming Encounters Date Type Specialty Care Team Description 06/22/2022 Appointment Laboratory Medicine Rusty Vee M.D. [address] [place] [address] [phone] 06/22/2022 Diagnostic Pulmonary Medicine Rusty Vee M.D. [address] [place] [phone] 06/22/2022 Diagnostic Pulmonary Medicine Rusty Vee M.D. [address] [place] [address] [phone] 06/22/2022 Appointment Radiology Rusty Vee M.D. [address] [place] [phone] 06/23/2022 Clinical Communication Admitting/Central Scheduling 06/28/2022 Appointment Pulmonary Medicine Rusty Vee M.D. [address] [place] [phone] 06/28/2022 Appointment Pulmonary Medicine Rusty Vee M.D. [address] [place] [phone] documented as of this encounter Procedures Procedure Name Priority Date/Time Associated Comments Diagnosis PROTHROMBIN TIME Routine 12/18/2014 8:00 AM Resul ts for this (PT), P CDT procedure are i n the results section. documented in this encounter Results (ABNORMAL) PT (Prothrombin Time) with INR (12/18/2014 8:00 AM CDT) [facility] Method Time Signature Prothrombin 23.4 SECONDS [...]
--- OUTSIDE RECORDS SUMMARY | 2022-05-25 21:08 | XMS_ITS | Encounter Summary ---
:1975 Author Organization [facility] Address [address] [place] [address] Care Team Providers Name Role Phone Unavailable Primary Care Provider Unavailable Encounter Details Date Type Department Care Team Description 12/04/2014 Hospital Encounter HX [facility] Marsha Henriquez M.D. [address] [place], [place] [address] (Wo rk) Social History [...] at Date Recorded Female 05/03/2022 7:07 PM SUPPORT ENGINEER documented as of this encounter Last [...] Notes Miscellaneous - Khadar Banda R.N. - 12/04/2014 10:13 AM CDT Anticoagulation Patient [...] completed by : KHADAR Manning RN - 12/04/2014 10:13 CDT KHADAR BANDA [...] lackey LM /pharmacy KHADAR BANDA RN - 12/04/2014 10:13 CDT KHADAR BANDA RN - 12/04/2014 10:13 CDT KHADAR BANDA RN - 12/04/2014 10:13 CDT KHADAR BANDA RN - 12/04/2014 10:13 CDT Date : 04/17/2014 CDT 04/24/2014 CDT 05/01/2014 SUPPORT ENGINEER 05/15/2014 SUPPORT ENGINEER Location of INR sample : Lab [...] will trynoted dose called to mom Fabiola [phone] called to Fabiola/no changes Called to mother/Fabiola, not awareof any changes Recommend Recheck : One week One week Two weeks Two weeks Plan completed by : MARIA GUADALUPE PRECIADO KHADAR BANDA RN - 12/04/2014 10:13 CDT KHADAR BANDA RN - 12/04/2014 10:13 CDT KHADAR BANDA RN - 12/04/2014 10:13 CDT KHADAR BANDA RN - 12/04/2014 10:13 CDT Date : 06/03/2014 SUPPORT ENGINEER 06/05/2014 SUPPORT ENGINEER 06/10/2014 SUPPORT ENGINEER 06/11/2014 SUPPORT ENGINEER Location of INR sample : Lab [...] motherFabiola. Hue will be staying in [place] [...] lovenox tomorrow AM as ordered. INR in [place] for next several weeks as pt will be recovering there. Recommend Recheck : Other: depending on Dr. Henriquez's preop. Other: 06/18 Other: 06/13/14 Plan completed by : KHADAR SANDERS RN - 12/04/2014 10:13 CDT KHADAR BANDA RN - 12/04/2014 10:13 CDT KHADAR BANDA RN - 12/04/2014 10:13 PATRICIAT KHADAR BANDA RN - 12/04/2014 10:13 CDT Date : 06/14/2014 SUPPORT ENGINEER 06/14/2014 SUPPORT ENGINEER 06/16/2014 SUPPORT ENGINEER 06/23/2014 SUPPORT ENGINEER Location of INR sample : Clinic [...] in [place] to contact CF Please contact [facility] lab on 06/16 for result and may call Fabiola at [phone] with instructions call to Fabiola/will stop Lovenox injections and take noted dose/pt has an appt here in [place] 06/23 so will do lab appt here that day Called to Fabiola/ [facility] at [facility] [...] - 12/04/2014 10:13 CDT Date : 07/10/2014 SUPPORT ENGINEER 07/17/2014 SUPPORT ENGINEER 07/31/2014 SUPPORT ENGINEER 09/11/2014 CDT Location of INR sample [...] : KHADAR Dumont RN - 12/04/2014 10:13 KHADAR HILL RN - 12/04/2014 10:13 PATRICIAT KHADAR BANDA RN - 12/04/2014 10:13 KHADAR HILL RN - 12/04/2014 10:13 CDT Date : [...] One week Plan completed by : ly darya ly KHADAR CAICEDO RN - 12/04/2014 10:13 CDT KHADAR BANDA [...] BANDA RN - 12/04/2014 10:13 CDT Source: [facility] POWERCHART Document Id: [id number] CDT![id number] Miscellaneous - Khadar Banda R.N. - 12/04/2014 10:04 AM CDT Results Notification From: KHADAR BANDA RN ( Anticoagulation Nurse) To: Anticoagulation Nurse; Sent: 12/04/2014 10:04:22 CDT Show up: 12/04/2014 10:05:00 CDT Subject: Results Notification Results: Date Result Name Value Ref Range 12/04/2014 08:03 PT 23.1 second(s) 12/04/2014 08:03 INR 2.1 INR (0.8 - 1.1) Source: [facility] POWERCHART Document Id: [id number] Electronically signed by Conversion, [facility] Graphics Production Specialist [id number] at 11/21/2016 3:30 PM CDT documented in this encounter Plan of Treatment Upcoming Encounters Date Type Specialty Care Team Description 06/22/2022 Appointment Laboratory Medicine Rusty Vee M.D. [address] [place] [phone] 06/22/2022 Diagnostic Pulmonary Medicine Rusty Vee M.D. [address] [place] [phone] 06/22/2022 Diagnostic Pulmonary Medicine Rusty Vee M.D. [address] [place] [phone] 06/22/2022 Appointment Radiology Rusty Vee M.D. [address] [place] [phone] 06/23/2022 Clinical Communication Admitting/Central Scheduling 06/28/2022 Appointment Pulmonary Medicine Rusty Vee M.D. [address] [place] [phone] 06/28/2022 Appointment Pulmonary Medicine Rusty Vee M.D. [address] [place] [address] [phone] documented as of this encounter Procedures Procedure Name Priority Date/Time Associated Comments Diagnosis PROTHROMBIN TIME Routine 12/04/2014 8:03 AM Resul ts for this (PT), P CDT procedure are i n the results section. documented in this encounter Results (ABNORMAL) PT (Prothrombin Time) with INR (12/04/2014 8:03 AM CDT) [facility] gist Method Time Signature Prothrombin 23.1 SECONDS POWERCHART [...]
--- OUTSIDE RECORDS SUMMARY | 2022-05-25 21:08 | XMS_ITS | Encounter Summary ---
:1975 Author Organization [facility] Address [address] [place] [address] Care Team Providers Name Role Phone Unavailable Primary Care Provider Unavailable Encounter Details Date Type Department Care Team Description 10/09/2014 Hospital Encounter HX [facility] Marsha Henriquez M.D. [address] [place], [place] [address] (Wo rk) Social [...] Date Recorded Female 05/03/2022 7:07 PM CUFF STITCHER documented as of this encounter Last Filed [...] Notes Miscellaneous - Khadar Medina R.N. - 10/09/2014 10:25 AM CDT Anticoagulation Patient Intake Anticoagulation Patient Intake Entered On: 10/09/2014 10:26 CDT Performed On: 10/09/2014 10:25 CDT by KHADAR MEDINA RN Plan INR goal range : 2.0 - 3.0 Duration of Therapy : Lifelong Tablet Size : 5 mg KHADAR MEDINA RN - 10/09/2014 10:25 CDT KHADAR MEDINA RN - 10/09/2014 10:25 CDT Anticoagulation Management [...] completed by : KHADAR Manning RN - 10/09/2014 10:25 CDT KHADAR MEDINA RN - 10/09/2014 10:25 CDT KHADAR MEDINA RN - 10/09/2014 10:25 CDT KHADAR MEDINA RN - 10/09/2014 10:25 CDT Date : [...] completed by : KHADAR Cho RN - 10/09/2014 10:25 CDT KHADAR MEDINA RN - 10/09/2014 10:25 CDT KHADAR MEDINA RN - 10/09/2014 10:25 CDT KHADAR MEDINA RN - 10/09/2014 10:25 CDT Date : [...] by : darya lackey LM /pharmacy KHADAR MEDINA RN - 10/09/2014 10:25 CDT KHADAR MEDINA RN - 10/09/2014 10:25 CDT KHADAR MEDINA RN - 10/09/2014 10:25 CDT KHADAR MEDINA RN - 10/09/2014 10:25 CDT Date : [...] will trynoted dose called to mom Fabiola [phone] called to Fabiola/no changes Called to mother/Fabiola, not awareof any changes Recommend Recheck : One week One week Two weeks Two weeks Plan completed by : KHADAR HACKETT RN - 10/09/2014 10:25 CDT KHADAR MEDINA RN - 10/09/2014 10:25 CDT KHADAR MEDINA RN - 10/09/2014 10:25 CDT KHADAR MEDINA RN - 10/09/2014 10:25 CDT Date : 06/03/2014 CUFF STITCHER 06/05/2014 CUFF STITCHER 06/10/2014 CUFF STITCHER 06/11/2014 CUFF STITCHER Location of INR sample : [...] Called motherFabiola. Hue will be staying in [place] 2wks post-surgery & have INR drawn there. [...] lovenox tomorrow AM as ordered. INR in [place] for next several weeks as pt will be recovering there. Recommend Recheck : Other: depending on Dr. Henriquez's preop. Other: 06/18 Other: 06/13/14 Plan completed by : KHADAR SANDERS RN - 10/09/2014 10:25 CDT KHADAR MEDINA RN - 10/09/2014 10:25 CDT KHADAR MEDINA RN - 10/09/2014 10:25 PATRICIAT KHADAR MEDINA RN - 10/09/2014 10:25 CDT Date : 06/14/2014 CUFF STITCHER 06/14/2014 CUFF STITCHER 06/16/2014 CUFF STITCHER 06/23/2014 CUFF STITCHER Location of INR sample : Clinic Lab Lab Type of Sample : Venous Venous INR Result : 1.3 on 06/13 2.4 faxed from lab 2.0 Warfarin Dose : (pt took 2.5mg 06/13) 5mg Sat and 5mg Sun (06/14 and 06/15) 5mg Mon and 2.5mg all other days 5mg Mon and 2.5mg all other days Total Weekly Warfarin Dose : 20 20 Comment : [place] lab called with INR result from 06/13, reported they left a message with Dr. Henriquez and hadn't heard back, spoke with mother, Fabiola, and gave doses, continue Lovenox and repeat INR 06/16, message left with INR clinic in to contact CF Please contact [place] lab on 06/16 for result and may call Fabiola at [phone] with instructions call to Fabiola/will stop Lovenox [...] by : KHADAR Mattson LM RN - 10/09/2014 10:25 CDT KHADAR MEDINA RN - 10/09/2014 10:25 CDT KHADAR MEDINA RN - 10/09/2014 10:25 CDT KHADAR MEDINA RN - 10/09/2014 10:25 CDT Date : 07/10/2014 CUFF STITCHER 07/17/2014 CUFF STITCHER 07/31/2014 CUFF STITCHER 09/11/2014 CDT Location of INR sample : [...] completed by : KHADAR Dumont RN - 10/09/2014 10:25 PATRICIAT KHADAR MEDINA RN - 10/09/2014 10:25 CDT KHADAR MEDINA RN - 10/09/2014 10:25 CDT KHADAR MEDINA RN - 10/09/2014 10:25 CDT Date : [...] Rondon RN - 10/09/2014 10:25 CDT KHADAR MEDINA RN - 10/09/2014 10:25 CDT KHADAR MEDINA RN - 10/09/2014 10:25 CDT KHADAR MEDINA RN - 10/09/2014 10:33 CDT Anticoagulation Assessment / History Visit : Phone management Plan of Care Date : 01/29/2008 CDT Primary Physician Anticoagulation : TASHA HENRIQUEZ MD 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 - 10/09/2014 10:24 AM CDT Results Notification From: KHADAR MEDINA RN ( Anticoagulation Nurse) To: Anticoagulation Nurse; Sent: 10/09/2014 10:24:02 CDT Show up: 10/09/2014 10:24:00 CDT Subject: Results Notification Results: Date Result Name Value Ref Range 10/09/2014 08:02 PT 27.9 second(s) 10/09/2014 08:02 INR 2.5 INR (0.8 - 1.1) Source: [facility] [employer] Document Id: [id number] Electronically signed by Conversion, [facility] Structural Design Engineer [id number] at 11/20/2016 5:00 PM CDT documented in this encounter Plan of Treatment Upcoming Encounters Date Type Specialty Care Team Description 06/22/2022 Appointment Laboratory Medicine Rusty Vee M.D. [address] [place] [phone] 06/22/2022 Diagnostic Pulmonary Medicine Rusty Vee M.D. [address] [place] [phone] 06/22/2022 Diagnostic Pulmonary Medicine Rusty Vee M.D. [address] [place] [phone] 06/22/2022 Appointment Radiology Rusty Vee M.D. [address] [place] [phone] 06/23/2022 Clinical Communication Admitting/Central Scheduling 06/28/2022 Appointment Pulmonary Medicine Rusty Vee M.D. [address] [place] [phone] 06/28/2022 Appointment Pulmonary Medicine Rusty Vee M.D. [address] [place] [phone] documented as of this encounter Procedures Procedure Name Priority Date/Time Associated Comments Diagnosis PROTHROMBIN TIME Routine 10/09/2014 8:02 AM Resul ts for this (PT), P CDT procedure are i n the results section. documented in this encounter Results (ABNORMAL) PT (Prothrombin Time) with INR (10/09/2014 8:02 AM CDT) [facility] Method Time Signature Prothrombin 27.9 SECONDS POWERCHART [...]
--- OUTSIDE RECORDS SUMMARY | 2022-05-25 21:08 | XMS_ITS | Encounter Summary ---
:1975 Author Organization [facility] Address [address] [place] [address] Care Team Providers Name Role Phone Unavailable Primary Care Provider Unavailable Encounter Details Date Type Department Care Team Description 11/07/2014 Hospital Encounter HX [facility] Marsha Henriquez M.D. [address] [place], [place] [address] (Wo rk) Social History [...] or relatives? How often do you attend religious or More than 4 times per year 05/04/2022 mormon services? 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 - 11/07/2014 3:25 PM CDT [id number] Dorita presents today for a physical. She [...] and hyperglycemia. 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 Antibodies were checked and were negative, so she does not have Mary Ann's thyroiditis. No further recheck necessary. Her hyperlipidemia is diet controlled. She had heart surgery at [place] on March 29, 2013. PAST MEDICAL/SURGICAL HISTORY [...] diet and exercise. She is cleared for Checkmarx. She does not do any at-risk activities. Otherwise, continue Coumadin lifelong and should use her Jobst stockings for her mild edema. Follow up 1 year and as needed. Tasha Henriquez M.D./erin Electronically Signed By: TASHA HENRIQUEZ MD On: 11/11/2014 07:26 AM Source: [facility] MHSDOLBEYNONRADSYS Document Id: [id number] documented in this encounter Procedure Notes Ellis Salvador, L.P.N. - 11/07/2014 5:03 PM CDT Ear [...] SALVADOR LPN - 11/07/2014 17:03 CDT Source: [facility] [employer] Document Id: [id number] CDT!9 documented in this encounter Miscellaneous Notes Miscellaneous - Tasha Henriquez M.D. - 11/07/2014 4:49 PM CDT Ambulatory Patient Summary [facility] [address] [facility], [address] [place], [place] [id number] Visit Information Name: DORTIA SHEFFIELD [facility] Number: [id number] Current Date: 11/07/2014 16:49:03 [...] By: TASHA HENRIQUEZ MD Signed On:07-NOV-2014 16:48:58 Your Allergies & [...] Appointments Date Time Location Provider 11/13/2014 08:15 [facility] Offsite 11/13/2014 15:30 [facility]o [facility] MA RM 1 Attention: Contact your local Clinic if further appointment detail needed. Your Goals/Additional instructions: Source: [facility] POWERCHART Document Id: [id number] Miscellaneous - Tasha Henriquez M.D. - 11/07/2014 4:49 PM CDT Ambulatory Discharge Medication List [facility] [address], [address] [place] [id number] Visit Information Name: DORITA SHEFFIELD [facility] Number: [id number] Visit Date: 11/07/2014 16:49:02 [...] MD Signed On:07-NOV-2014 16:48:58 Additional Information: Source: [facility] POWERCHART Document Id: [id number] Miscellaneous - Ellis Salvador, NehalP.NMichael - 11/07/2014 3:57 PM CDT Adult Party Plan Sales Consultant Intake/History Adult Party Plan Sales Consultant Intake/History Entered On: 11/07/2014 16:01 CDT Performed [...] Preferred Communication Mode : Verbal Languages : Nicaraguan Is Patient Female and 13-50 no hysterectomy [...] SALVADOR LPN - 11/07/2014 15:57 CDT Source: [facility] POWERCHART Document Id: [id number] CDT!35 documented in this encounter Plan of Treatment Upcoming Encounters Date Type Specialty Care Team Description 06/22/2022 Appointment Laboratory Medicine Rusty Vee M.D. [address] [place] [phone] 06/22/2022 Diagnostic Pulmonary Medicine Rusty Vee M.D. [address] [place] [phone] 06/22/2022 Diagnostic Pulmonary Medicine Rusty Vee M.D. [address] [place] [phone] 06/22/2022 Appointment Radiology Rusty Vee M.D. [address] [place] [phone] 06/23/2022 Clinical Communication Admitting/Central Scheduling 06/28/2022 Appointment Pulmonary Medicine Rusty Vee M.D. [address] [place] [phone] 06/28/2022 Appointment Pulmonary Medicine Rusty Vee M.D. [address] [place] [phone] documented as of this encounter Visit Diagnoses Not on filedocumented in this encounter
--- OUTSIDE RECORDS SUMMARY | 2022-05-25 21:08 | XMS_ITS | Encounter Summary ---
:1975 Author Organization [facility] Address [address] [place] [address] Care Team Providers Name Role Phone Unavailable Primary Care Provider Unavailable Encounter Details Date Type Department Care Team Description 03/05/[address] [facility] Marsha Henriquez M.D. 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 documented as of this encounter Last [...] completed by : WALI Tracy RN - 03/05/2015 10:35 CDT WALI MCCLELLAN [...] long time, no bleeding now left [facility] for Fabiola,call if changes Recommend Recheck : [...] lackey LM /pharmacy WALI MCCLELLAN RN - 03/05/2015 10:35 CDT WALI MCCLELLAN RN - 03/05/2015 10:35 CDT WALI MCCLELLAN RN - 03/05/2015 10:35 CDT WALI MCCLELLAN RN - 03/05/2015 10:35 CDT Date : 04/17/2014 CDT 04/24/2014 CDT 05/01/2014 ELECTRICAL DESIGN ENGINEER 05/15/2014 ELECTRICAL DESIGN ENGINEER Location of INR sample : Lab [...] will trynoted dose called to mom Fabiola [phone] called to Fabiola/no changes Called to mother/Fabiola, not awareof any changes Recommend Recheck : One week One week Two weeks Two weeks Plan completed by : MARIA GUADALUPE PRECIADO WALI MCCLELLAN RN - 03/05/2015 10:35 CDT WALI MCCLELLAN RN - 03/05/2015 10:35 CDT WALI MCCLELLAN RN - 03/05/2015 10:35 CDT WALI MCCLELLAN RN - 03/05/2015 10:35 CDT Date : 06/03/2014 ELECTRICAL DESIGN ENGINEER 06/05/2014 ELECTRICAL DESIGN ENGINEER 06/10/2014 ELECTRICAL DESIGN ENGINEER 06/11/2014 ELECTRICAL DESIGN ENGINEER Location of INR sample : Lab [...] Called motherFabiola. Hue will be staying in [place] 2wks post-surgery & have INR drawn there. [...] lovenox tomorrow AM as ordered. INR in [place] for next several weeks as pt will be recovering there. Recommend Recheck : Other: depending on Dr. Henriquez's preop. Other: 06/18 Other: 06/13/14 Plan completed by : WALI TYLER RN - 03/05/2015 10:35 CDT WALI MCCLELLAN RN - 03/05/2015 10:35 CDT WALI MCCLELLAN RN - 03/05/2015 10:35 CDT WALI MCCLELLAN RN - 03/05/2015 10:35 CDT Date : 06/14/2014 ELECTRICAL DESIGN ENGINEER 06/14/2014 ELECTRICAL DESIGN ENGINEER 06/16/2014 ELECTRICAL DESIGN ENGINEER 06/23/2014 ELECTRICAL DESIGN ENGINEER Location of INR sample : Clinic [...] Warfarin Dose : 20 20 Comment : [place] lab called with INR result from 06/13, reported they left a message with Dr. Henriquez and hadn't heard back, spoke with Fabiola granados, and gave doses, continue Lovenox and repeat INR 06/16, message left with INR clinic in [place] to contact CF Please contact [facility] lab on 06/16 for result and may call Fabiola at [phone] with instructions call to Fabiola/will stop Lovenox injections and take noted dose/pt has an appt here in [place] 06/23 so will do lab appt here that day Called to Fabiola/ Hue will be back at [facility] by next draw. will have done on . no changes to meds/diet. Recommend Recheck : Two days One week Two weeks Plan completed by : WALI Steven LM, RN - 03/05/2015 10:35 CDT WALI MCCLELLAN RN - 03/05/2015 10:35 CDT WALI MCCLELLAN RN - 03/05/2015 10:35 CDT WALI MCCLELLAN RN - 03/05/2015 10:35 CDT Date : 07/10/2014 ELECTRICAL DESIGN ENGINEER 07/17/2014 ELECTRICAL DESIGN ENGINEER 07/31/2014 ELECTRICAL DESIGN ENGINEER 09/11/2014 CDT Location of INR sample [...] MCCLELLAN RN - 03/05/2015 10:35 CDT Source: [facility] [employer] Document Id: [id number] CDT![id number] Miscellaneous - Meli Campo R.N. - 03/05/2015 10:04 AM CDT Results Notification From: MELI CAMPO RN ( Anticoagulation Nurse) To: Anticoagulation Nurse; Sent: 03/05/2015 10:04:39 CDT Show up: 03/05/2015 10:05:00 CDT Subject: Results Notification Results: Date Result Name Value Ref Range 03/05/2015 08:09 PT 33.0 second(s) (8.7 - 11.8) 03/05/2015 08:09 INR 2.9 INR (0.9 - 1.1) [facility] Document Id: [id number] Electronically signed by Lay [facility] Dehydrogenation Converter Helper [id number] at 11/21/2016 7:46 PM CDT Miscellaneous - Wali Mcclellan - 03/05/2015 10:04 AM CDT Results Notification Document Contains Addenda Addendum by WAIL MCCLELLAN RN on 05 March 2015 10:40:11 CDT Orders called to Mom/Fabiola. From: WALI MCCLELLAN RN ( Anticoagulation Nurse) To: Anticoagulation Nurse; Sent: 03/05/2015 10:04:34 CDT Show up: 03/05/2015 10:05:00 CDT Subject: Results Notification Results: Date Result Name Value Ref Range 03/05/2015 08:09 PT 33.0 second(s) (8.7 - 11.8) 03/05/2015 08:09 INR 2.9 INR (0.9 - 1.1) Source: [facility] [employer] Document Id: [id number] Electronically signed by Conversion, [facility] Dehydrogenation Converter Helper [id number] at 11/21/2016 7:46 PM CDT documented in this encounter Plan of Treatment Upcoming Encounters Date Type Specialty Care Team Description 06/22/2022 Appointment Laboratory Medicine Rusty Vee M.D. [address] [place] [phone] 06/22/2022 Diagnostic Pulmonary Medicine Rusty Vee M.D. [address] [place] [phone] 06/22/2022 Diagnostic Pulmonary Medicine Rusty Vee M.D. [address] [place] [address] [phone] 06/22/2022 Appointment Radiology Rusty Vee M.D. [address] [place] [phone] 06/23/2022 Clinical Communication Admitting/Central Scheduling 06/28/2022 Appointment Pulmonary Medicine Rusty Vee M.D. [address] [place] [phone] 06/28/2022 Appointment Pulmonary Medicine Rusty Vee M.D. [address] [place] [phone] documented as of this encounter Procedures Procedure Name Priority Date/Time Associated Comments Diagnosis PROTHROMBIN TIME Routine 03/05/2015 8:09 AM Resul ts for this (PT), P CDT procedure are i n the results section. documented in this encounter Results (ABNORMAL) PT (Prothrombin Time) with INR (03/05/2015 8:09 AM CDT) [facility] Method Time Signature Prothrombin 33.0 (H) 8.7 [...]
--- OUTSIDE RECORDS SUMMARY | 2022-05-25 21:08 | XMS_ITS | Encounter Summary ---
:1975 Author Organization [facility] Address [address] [place] [address] Care Team Providers Name Role Phone Unavailable Primary Care Provider Unavailable Encounter Details Date Type Department Care Team Description 10/02/2014 Hospital Encounter HX [facility] Marsha Henriquez M.D. [address] [place], [place] [address] (Wo rk) Social History [...] at Date Recorded Female 05/03/2022 7:07 PM COOK NIGHT documented as of this encounter Last Filed [...] Miscellaneous Notes Miscellaneous - Wali Brito - 10/02/2014 11:55 AM CDT Anticoagulation Patient Intake Document Has Been Updated Anticoagulation Patient Intake Entered On: 10/02/2014 11:57 CDT Performed On: 10/02/2014 11:55 CDT by WALI BRITO RN Plan INR goal range : 2.0 - 3.0 Duration of Therapy : Lifelong Tablet Size : 5 mg WALI BRITO RN - 10/02/2014 11:55 CDT WALI BRITO RN - 10/02/2014 11:55 CDT Anticoagulation Management [...] completed by : WALI Tracy RN - 10/02/2014 11:55 CDT WALI BRITO RN - 10/02/2014 11:55 CDT WALI BRITO RN - 10/02/2014 11:55 CDT WALI BRITO RN - 10/02/2014 11:55 CDT Date : [...] Davidson RN - 10/02/2014 11:55 CDT WALI BRITO RN - 10/02/2014 11:55 CDT WALI BRITO RN - 10/02/2014 11:55 CDT WALI BRITO RN - 10/02/2014 11:55 CDT Date : [...] lackey LM /pharmacy WALI BRITO RN - 10/02/2014 11:55 CDT WALI BRITO RN - 10/02/2014 11:55 CDT WALI BRITO RN - 10/02/2014 11:55 CDT WALI BRITO RN - 10/02/2014 11:55 CDT Date : 04/17/2014 CDT 04/24/2014 CDT 05/01/2014 COOK NIGHT 05/15/2014 COOK NIGHT Location of INR sample : Lab Lab [...] will trynoted dose called to mom Fabiola [phone] called to Fabiola/no changes Called to mother/Fabiola, not awareof any changes Recommend Recheck : One week One week Two weeks Two weeks Plan completed by : MARIA GUADALUPE PRECIADO WALI BRITO RN - 10/02/2014 11:55 CDT WALI BRITO RN - 10/02/2014 11:55 CDT WALI BRITO RN - 10/02/2014 11:55 CDT WALI BRITO RN - 10/02/2014 11:55 CDT Date : 06/03/2014 COOK NIGHT 06/05/2014 COOK NIGHT 06/10/2014 COOK NIGHT 06/11/2014 COOK NIGHT Location of INR sample : Lab Type [...] Called motherFabiola. Hue will be staying in [place] 2wks post-surgery & have INR drawn there. [...] lovenox tomorrow AM as ordered. INR in [place] for next several weeks as pt will be recovering there. Recommend Recheck : Other: depending on Dr. Henriquez's preop. Other: 06/18 Other: 06/13/14 Plan completed by : WALI TYLER RN - 10/02/2014 11:55 CDT WALI BRITO RN - 10/02/2014 11:55 CDT WALI BRITO RN - 10/02/2014 11:55 CDT WALI BRITO RN - 10/02/2014 11:55 CDT Date : 06/14/2014 COOK NIGHT 06/14/2014 COOK NIGHT 06/16/2014 COOK NIGHT 06/23/2014 COOK NIGHT Location of INR sample : Clinic Lab Lab Type of Sample : Venous Venous INR Result : 1.3 on 06/13 2.4 faxed from lab 2.0 Warfarin Dose : (pt took 2.5mg 06/13) 5mg Sat and 5mg Sun (06/14 and 06/15) 5mg Mon and 2.5mg all other days 5mg Mon and 2.5mg all other days Total Weekly Warfarin Dose : 20 20 Comment : [place] lab called with INR result from 06/13, reported they left a message with Dr. Henriquez and hadn't heard back, spoke with mother, Fabiola, and gave doses, continue Lovenox and repeat INR 06/16, message left with INR clinic in [place] to contact CF Please contact [facility] lab on 06/16 for result and may call Fabiola at [phone] with instructions call to Fabiola/will stop Lovenox [...] LM, RN - 10/02/2014 11:55 CDT WALI BRITO RN - 10/02/2014 11:55 CDT WALI BRITO RN - 10/02/2014 11:55 CDT WALI BRITO RN - 10/02/2014 11:55 CDT Date : 07/10/2014 COOK NIGHT 07/17/2014 COOK NIGHT 07/31/2014 COOK NIGHT 09/11/2014 CDT Location of INR sample : [...] Yarbrough RN - 10/02/2014 11:55 CDT WALI BRITO RN - 10/02/2014 11:55 CDT WALI BRITO RN - 10/02/2014 11:55 CDT WALI BRITO RN - 10/02/2014 11:55 CDT Date : 09/12/2014 CDT 09/25/2014 CDT 10/02/2014 CDT WALI BRITO RN - 10/02/2014 11:55 CDT Location of INR sample : Lab Lab WALI BRITO RN - 10/02/2014 11:55 CDT Type of Sample : Venous Venous WALI BRITO RN - 10/02/2014 11:55 CDT INR Result : 1.7 1.9 WALI BRITO RN - 10/02/2014 11:55 CDT Warfarin Dose : 5mg Mon/Thurs, 2.5mg all other days 5mg Tues, Thurs & Sat, 2.5mg all other days Total Weekly Warfarin Dose : 22.5 25 Comment : Per mom, pt on Zpak last wk, no other changes, best to call mom on cell phone # per Mom/nochanges or missed doses Called to Mom/Fabiola, no changes, [facility] WALI BRITO RN - 10/02/2014 15:27 CDT Recommend Recheck : Two weeks One week One week Plan completed by : WALI Wright RN - 10/02/2014 11:55 CDT WALI BRITO RN - 10/02/2014 11:55 CDT WALI BRITO RN - 10/02/2014 11:55 CDT WALI BRITO RN - 10/02/2014 15:21 CDT Anticoagulation Assessment / History Visit : Phone management Plan of Care Date : 01/29/2008 CDT Primary Physician Anticoagulation : TASHA HENRIQUEZ MD 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 : DVT Lower, Other: Deep Phlebitis-Leg NEC CHADS2 Score Date : 09/05/2013 CDT WALI BRITO RN - 10/02/2014 11:55 CDT Changes / Problems Changes/Problems Since Last Visit : None Been Scheduled For : None Missed Coumadin Doses : None Change In Intake : None Change In Medication : None Have You Had : None Plans to Travel : No WALI BRITO RN - 10/02/2014 15:21 CDT Source: [email or web address] POWERCHART Document Id: [id number] CDT!5 Miscellaneous - Wali Brito - 10/02/2014 10:09 AM CDT Results Notification Document Contains Addenda Addendum by WALI BRITO RN on 02 October 2014 15:28:22 CDT Orders called to Mom/Fabiola. Addendum by WALI BRITO RN on 02 October 2014 11:57:46 CDT Will consult with Pharmacy. From: WALI BRITO RN ( Anticoagulation Nurse) To: Anticoagulation Nurse; Sent: 10/02/2014 10:09:37 CDT Show up: 10/02/2014 10:10:00 CDT Subject: Results Notification Results: Date Result Name Value Ref Range 10/02/2014 08:01 PT 20.8 second(s) (8.7 - 11.8) 10/02/2014 08:01 INR 1.9 INR (0.9 - 1.1) Source: [facility] POWERCHART Document Id: [id number] Electronically signed by [facility] Playground Attendant [id number] at 11/20/2016 3:35 PM CDT documented in this encounter Plan of Treatment Upcoming Encounters Date Type Specialty Care Team Description 06/22/2022 Appointment Laboratory Medicine Rusty Vee M.D. [address] [place] [phone] 06/22/2022 Diagnostic Pulmonary Medicine Rusty Vee M.D. [address] [place] [phone] 06/22/2022 Diagnostic Pulmonary Medicine Rusty Vee M.D. [address] [place] [phone] 06/22/2022 Appointment Radiology Rusty Vee M.D. [address] [place] [address] [phone] 06/23/2022 Clinical Communication Admitting/Central Scheduling 06/28/2022 Appointment Pulmonary Medicine Rusty Vee M.D. [address] [place] [phone] 06/28/2022 Appointment Pulmonary Medicine Rusty Vee M.D. [address] [place] [phone] documented as of this encounter Procedures Procedure Name Priority Date/Time Associated Comments Diagnosis PROTHROMBIN TIME Routine 10/02/2014 8:01 AM Resul ts for this (PT), P CDT procedure are i n the results section. documented in this encounter Results (ABNORMAL) PT (Prothrombin Time) with INR (10/02/2014 8:01 AM CDT) [employer] Method Time Signature Prothrombin 20.8 (H) 8.7 [...]
--- OUTSIDE RECORDS SUMMARY | 2022-05-25 21:08 | XMS_ITS | Encounter Summary ---
:1975 Author Organization [facility] Address [address] [place] [address] Care Team Providers Name Role Phone Unavailable Primary Care Provider Unavailable Encounter Details Date Type Department Care Team Description 10/23/2014 Hospital Encounter HX [facility] Marsha Henriquez M.D. 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 - 10/23/2014 10:11 AM CDT Anticoagulation Patient [...] completed by : KHADAR Manning RN - 10/23/2014 10:11 CDT KHADAR BANDA [...] lackey LM /pharmacy KHADAR BANDA RN - 10/23/2014 10:11 CDT KHADAR BANDA RN - 10/23/2014 10:11 CDT KHADAR BANDA RN - 10/23/2014 10:11 CDT KHADAR BANDA RN - 10/23/2014 10:11 CDT Date : 04/17/2014 CDT 04/24/2014 CDT 05/01/2014 MEMBERSHIP SALES ADVISOR 05/15/2014 MEMBERSHIP SALES ADVISOR Location of INR sample : Lab Lab [...] will trynoted dose called to mom Fabiola [phone] called to Fabiola/no changes Called to mother/Fabiola, not awareof any changes Recommend Recheck : One week One week Two weeks Two weeks Plan completed by : MARIA GUADALUPE PRECIADO KHADAR BANDA RN - 10/23/2014 10:11 CDT KHADAR BANDA RN - 10/23/2014 10:11 CDT KHADAR BANDA RN - 10/23/2014 10:11 CDT KHADAR BANDA RN - 10/23/2014 10:11 CDT Date : 06/03/2014 MEMBERSHIP SALES ADVISOR 06/05/2014 MEMBERSHIP SALES ADVISOR 06/10/2014 MEMBERSHIP SALES ADVISOR 06/11/2014 MEMBERSHIP SALES ADVISOR Location of INR sample : Lab Type [...] Called motherFabiola. Hue will be staying in [place] 2wks post-surgery & have INR drawn there. [...] lovenox tomorrow AM as ordered. INR in [place] for next several weeks as pt will be recovering there. Recommend Recheck : Other: depending on Dr. Henriquez's preop. Other: 06/18 Other: 06/13/14 Plan completed by : KHADAR SANDERS RN - 10/23/2014 10:11 CDT KHADAR BANDA RN - 10/23/2014 10:11 CDT KHADAR BANDA RN - 10/23/2014 10:11 PATRICIAT KHADAR BANDA RN - 10/23/2014 10:11 CDT Date : 06/14/2014 MEMBERSHIP SALES ADVISOR 06/14/2014 MEMBERSHIP SALES ADVISOR 06/16/2014 MEMBERSHIP SALES ADVISOR 06/23/2014 MEMBERSHIP SALES ADVISOR Location of INR sample : Clinic Lab Lab Type of Sample : Venous Venous INR Result : 1.3 on 06/13 2.4 faxed from lab 2.0 Warfarin Dose : (pt took 2.5mg 06/13) 5mg Sat and 5mg Sun (06/14 and 06/15) 5mg Mon and 2.5mg all other days 5mg Mon and 2.5mg all other days Total Weekly Warfarin Dose : 20 20 Comment : [place] lab called with INR result from 06/13, reported they left a message with Dr. Henriquez and hadn't heard back, spoke with mother, Fabiola, and gave doses, continue Lovenox and repeat INR 06/16, message left with INR clinic in [place] to contact CF Please contact [facility] lab on 06/16 for result and may call Fabiola at [phone] with instructions call to Fabiola/will stop Lovenox [...] - 10/23/2014 10:11 CDT Date : 07/10/2014 MEMBERSHIP SALES ADVISOR 07/17/2014 MEMBERSHIP SALES ADVISOR 07/31/2014 MEMBERSHIP SALES ADVISOR 09/11/2014 CDT Location of INR sample : [...] : KHADAR Dumont RN - 10/23/2014 10:11 KHADAR HILL RN - 10/23/2014 10:11 PATRICIAT KHADAR BANDA [...] BANDA RN - 10/23/2014 10:11 CDT Source: [facility] [employer] Document Id: [id number] CDT!319 Miscellaneous - Khadar Banda R.N. - 10/23/2014 10:03 AM CDT Results Notification From: KHADAR BANDA RN ( Anticoagulation Nurse) To: Anticoagulation Nurse; Sent: 10/23/2014 10:03:35 CDT Show up: 10/23/2014 10:04:00 CDT Subject: Results Notification Results: Date Result Name Value Ref Range 10/23/2014 08:00 PT 28.8 second(s) 10/23/2014 08:00 INR 2.6 INR (0.8 - 1.1) Source: [facility] [employer] Document Id: [id number] documented in this encounter Plan of Treatment Upcoming Encounters Date Type Specialty Care Team Description 06/22/2022 Appointment Laboratory Medicine Rusty Vee M.D. [address] [place] [phone] 06/22/2022 Diagnostic Pulmonary Medicine Rusty Vee M.D. [address] [place] [phone] 06/22/2022 Diagnostic Pulmonary Medicine Rusty Vee M.D. [address] [place] [phone] 06/22/2022 Appointment Radiology Rusty Vee M.D. [address] [place] [phone] 06/23/2022 Clinical Communication Admitting/Central Scheduling 06/28/2022 Appointment Pulmonary Medicine Rusty Vee M.D. [address] [place] [phone] 06/28/2022 Appointment Pulmonary Medicine Rusty Vee M.D. [address] [place] [phone] documented as of this encounter Procedures Procedure Name Priority Date/Time Associated Comments Diagnosis PROTHROMBIN TIME Routine 10/23/2014 8:00 AM Resul ts for this (PT), P CDT procedure are i n the results section. documented in this encounter Results (ABNORMAL) PT (Prothrombin Time) with INR (10/23/2014 8:00 AM CDT) [facility] Method Time Signature Prothrombin 28.8 SECONDS POWERCHART [...]
--- OUTSIDE RECORDS SUMMARY | 2022-05-25 21:09 | XMS_ITS | Encounter Summary ---
:1975 Author Organization [facility] Address [address] [place] [address] Care Team Providers Name Role Phone Unavailable Primary Care Provider Unavailable Encounter Details Date Type Department Care Team Description 06/16/2014 Hospital Encounter HX [facility] Marsha Garibay M.D. [address] [place], [place] [address] (Wo rk) Social History [...] at Date Recorded Female 05/03/2022 7:07 PM EVAPORATOR documented as of this encounter Last Filed Vital Signs Vital Sign Reading Time Taken Comments Blood Pressure - - Pulse - - Temperature - - Respiratory Rate - - Oxygen Saturation - - Inhaled Oxygen Concentration - - Weight - - Height 157 cm (5' 1.81) 06/16/2014 10:05 AM EVAPORATOR Body Mass Index - - documented in [...] Laboratory Medicine Rusty Vee M.D. [address] [place] [phone] 06/22/2022 Diagnostic Pulmonary Medicine Rusty Vee M.D. [address] [place] [phone] 06/22/2022 Diagnostic Pulmonary Medicine Rusty Vee M.D. [address] [place] [phone] 06/22/2022 Appointment Radiology Rusty Vee M.D. [address] [place] [phone] 06/23/2022 Clinical Communication Admitting/Central Scheduling 06/28/2022 Appointment Pulmonary Medicine Rusty Vee M.D. [address] [place] [phone] 06/28/2022 Appointment Pulmonary Medicine Rusty Vee M.D. [address] [place] [phone] documented as of this encounter Procedures Procedure Name Priority Date/Time Associated Comments Diagnosis PROTHROMBIN TIME Routine 06/16/2014 10:06 Results for this (PT), P AM EVAPORATOR procedure are i n the results section. documented in this encounter Results (ABNORMAL) PT (Prothrombin Time) with INR (06/16/2014 10:06 AM EVAPORATOR) [facility] Method Time Signature INR 2.04 (H) 0.90 - 1.16 POWERCHART Prothrombin 22.8 (H) 8.7 - 11.8 POWERCHART Time, P SECONDS Specimen (Source) Anatomical Collection Method Collection Time Re ceived Time Location / / Volume Laterality Blood 06/16/2014 10:06 AM EVAPORATOR Sridhar Garibay M.D. LAB BLOOD ADD-ON Performing Organization Address City/State/ZIP Code Phon e Number POWERCHART documented in this encounter Visit Diagnoses Not on filedocumented in this encounter
--- OUTSIDE RECORDS SUMMARY | 2022-05-25 21:09 | XMS_ITS | Encounter Summary ---
:1975 Author Organization [facility] Address [address] [place] [address] Care Team Providers Name Role Phone Unavailable Primary Care Provider Unavailable Encounter Details Date Type Department Care Team Description 06/10/2014 Hospital Encounter HX [facility] Alyssa Haider M.D. [address] [place] [address] (Wo rk) Social History Tobacco [...] at Date Recorded Female 05/03/2022 7:07 PM MATTRESS MAKER documented as of this encounter Last Filed Vital Signs Vital Sign Reading Time Taken Comments Blood Pressure 102/58 06/10/2014 4:06 PM MATTRESS MAKER Pulse 64 06/10/2014 4:06 PM MATTRESS MAKER Temperature - - Respiratory Rate - - Oxygen Saturation - - Inhaled Oxygen Concentration - - Weight 81 kg (178 lb 9.2 oz) 06/10/2014 4:06 PM MATTRESS MAKER Height 157 cm (5' 1.81) 06/10/2014 4:06 PM MATTRESS MAKER Body Mass Index 32.86 06/10/2014 4:06 PM MATTRESS MAKER documented in this encounter Medications at Time of Discharge Medication Sig Dispensed Refills Start Date End Date multivitamin tablet Take 2 tablets by 0 3 mouth daily. FLUORIDE, SODIUM, Apply 1 application 0 3 12/31/2019 DENTAL topically 2 (two) times a day. documented as of this encounter H&P Notes Alyssa Campbell M.D. - 06/10/2014 4:14 PM CST Pre op: choly, 06/10/14 CHIEF COMPLAINT/REASON FOR VISIT preop laparoscopic cholecystectomy [...] checks. Lovenox has been faxed to [facility]. INR goal 2-3. Pt's Dad is aware of need for Lovenox and may need teaching. Orders: enoxaparin, 80 mg = 0.8 mL, Subcut., Daily, x 5 day(s), # 4 mL, 1 Refill(s), Acute, Pharmacy: [facility] [address] No evidence of functionally compromising cardiac or pulmonary status The patient is instructed as to which medications to take with sips of water the day of surgery. Electronically Signed By: ALYSSA CAMPBELL MD On: 06/10/2014 05:08 PM Source: [facility] POWERCHART Document Id: [id number] RESS MAKER documented in this encounter Procedure Notes Roxy Rincon L.P.N. - 06/10/2014 4:46 PM CST Ear Irrigation Ear Irrigation Entered On: 06/10/2014 16:46 MATTRESS MAKER Performed On: 06/10/2014 16:46 MATTRESS MAKER by ROXY RINCON LPN Ear Irrigation Ear Irrigation Location : Bilateral Ear Irrigation Technique Used : Ear washer Ear Irrigation Solution Used : Warm water Ear Irrigation Results : large amt Post irrigation ear canal evaluation : Patent Post Irrigation Tympanic Membrane Eval : Intact ROXY RINCON LPN - 06/10/2014 16:46 MATTRESS MAKER [facility] Document Id: [id number] MATTRESS MAKER!8 RESS MAKER documented in this encounter Miscellaneous Notes Miscellaneous - Hanna Truong RViktor - 06/16/2014 5:08 PM CST Anticoagulation Patient Intake Anticoagulation Patient Intake Entered On: 06/16/2014 17:14 MATTRESS MAKER Performed On: 06/16/2014 17:08 MATTRESS MAKER by HANNA TRUONG RN Plan INR goal range : 2.0 - 3.0 Duration of Therapy : Lifelong Tablet Size : 5 mg HANNA TRUONG RN - 06/16/2014 17:08 MATTRESS MAKER Anticoagulation Management Plan Grid Date : 09/05/2013 [...] : HANNA Ann RN - 06/16/2014 17:08 HANNA RODRIGUES RN - 06/16/2014 17:08 HANNA RODRIGUES RN - 06/16/2014 17:08 HANNA RODRIGUES RN - 06/16/2014 17:08 MATTRESS MAKER Date : 12/26/2013 CDT 01/30/2014 CDT 03/06/2014 [...] : HANNA Eubanks RN - 06/16/2014 17:08 HANNA RODRIGUES RN - 06/16/2014 17:08 HANNA RODRIGUES RN - 06/16/2014 17:08 HANNA RODRIGUES RN - 06/16/2014 17:08 MATTRESS MAKER Date : 03/20/2014 CDT 03/27/2014 CDT 04/10/2014 [...] /pharmacy HANNA TRUONG RN - 06/16/2014 17:08 MATTRESS MAKER HANNA TRUONG RN - 06/16/2014 17:08 MATTRESS MAKER HANNA TRUONG RN - 06/16/2014 17:08 MATTRESS MAKER HANNA TRUONG RN - 06/16/2014 17:08 MATTRESS MAKER Date : 04/17/2014 CDT 04/24/2014 CDT 05/01/2014 MATTRESS MAKER 05/15/2014 MATTRESS MAKER Location of INR sample : Lab Lab [...] will trynoted dose called to mom Fabiola [phone] called to Fabiola/no changes Called to mother/Fabiola, not awareof any changes Recommend Recheck : One week One week Two weeks Two weeks Plan completed by : HANNA CLAY RN - 06/16/2014 17:08 HANNA RODRIGUES RN - 06/16/2014 17:08 HANNA RODRIGUES RN - 06/16/2014 17:08 HANNA RODRIGUES RN - 06/16/2014 17:08 MATTRESS MAKER Date : 06/03/2014 MATTRESS MAKER 06/05/2014 MATTRESS MAKER 06/10/2014 MATTRESS MAKER 06/11/2014 MATTRESS MAKER Location of INR sample : Lab Type [...] Called motherFabiola. Dorita will be staying in [place] 2wks post-surgery & have INR drawn there. [...] lovenox tomorrow AM as ordered. INR in [place] for next several weeks as pt will be recovering there. Recommend Recheck : Other: depending on Dr. Henriquez's preop. Other: 06/18 Other: 06/13/14 Plan completed by : HANNA MARTIN RN - 06/16/2014 17:08 MATTRESS MAKER HANNA TRUONG RN - 06/16/2014 17:08 MATTRESS MAKER HANNA TRUONG RN - 06/16/2014 17:08 MATTRESS MAKER HANNA TRUONG RN - 06/16/2014 17:08 MATTRESS MAKER Date : 06/14/2014 MATTRESS MAKER 06/14/2014 MATTRESS MAKER 06/16/2014 MATTRESS MAKER Location of INR sample : Clinic Lab Type of Sample : Venous INR Result : 1.3 on 06/13 2.4 faxed from [facility] lab Warfarin Dose : (pt took 2.5mg 06/13) 5mg Sat and 5mg Sun (06/14 and 06/15) 5mg Mon and 2.5mg all other days Total Weekly Warfarin Dose : 20 Comment : [place] lab called with INR result from 06/13, reported they left a message with Dr. Henriquez and hadn't heard back, spoke with mother, Fabiola, and gave doses, continue Lovenox and repeat INR 06/16, message left with INR clinic in to contact [facility] Please contact [facility] on 06/16 for result and may call Fabiola at [phone] with instructions call to Fabiola/will stop Lovenox injections and take noted dose/pt has an appt here in [place] 06/23 so will do lab appt here that day Recommend Recheck : Two days One week Plan completed by : HANNA Neri RN - 06/16/2014 17:08 MATTRESS MAKER HANNA TRUONG RN - 06/16/2014 17:08 MATTRESS MAKER HANNA TRUONG RN - 06/16/2014 17:08 MATTRESS MAKER Anticoagulation Assessment / History Visit : Phone management Plan of Care Date : 01/29/2008 CDT Primary Physician Anticoagulation : TASHA HENRIQUEZ MD 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 - 06/11/2014 1:26 PM CST Med Management Document Contains Addenda Addendum by SACHI DELATORRE MD on 11 June 2014 15:00:27 MATTRESS MAKER From: SACHI DELATORRE MD Sent: 06/11/2014 15:00:27 MATTRESS MAKER ! Subject: RE:Med Management Approved Order:enoxaparin (Lovenox 80 mg/0.8 mL injectable solution) 0.8 mL Subcut. q12hr Qty: 8 mL Duration: 5 day(s) Refills: 1 Substitutions Allowed Route To Pharmacy - [facility] Signed by SACHI DELATORRE MD 06/11/2014 15:00:06 From: SKY CHINCHILLA RN ( [facility] Nurse Line) To: SACHI DELATORRE MD; Sent: 06/11/2014 13:26:25 MATTRESS MAKER ! Subject: Med Management On hold pending signature Order:enoxaparin (Lovenox 80 mg/0.8 mL injectable solution) 0.8 mL Subcut. q12hr Qty: 8 mL Duration: 5 day(s) Refills: 1 Substitutions Allowed Route To Pharmacy - [facility] Caller is: ( ) Patient ( [...] back cell phone number ( ) Source: [facility] POWERCHART Document Id: [id number] Miscellaneous - Alyssa Campbell M.D. - 06/10/2014 4:28 PM CST Ambulatory Patient Summary [facility] [address], [address] [place], [place] [id number] Visit Information Name: DORITA SHEFFIELD [facility] Number: [id number] Current Date: 06/10/2014 16:28:41 Physicians [...] Appointments Date Time Location Provider 06/11/2014 07:45 [facility] Main OR [facility] OR 06/18/2014 08:30 [facility] Lab [facility] Lab 06/23/2014 08:45 [facility] Kati TSANG, Eddi Benavides Attention: Contact your local Clinic if further appointment detail needed. Your Goals/Additional instructions: Source: [facility] POWERCHART Document Id: [id number] RESS MAKER Miscellaneous - Alyssa Campbell M.D. - 06/10/2014 4:28 PM CST Ambulatory Discharge Medication List [facility] [address], [address] [place], [place] [id number] Visit Information Name: DORITA SHEFFIELD [facility] Number: [id number] Visit Date: 06/10/2014 16:28:40 Attending [...] 1 luther, Topical, two times a day [facility] Prescription (NEW MED) See Instructions Rx mouth [...] MD Signed On:10-JUN-2014 16:27:55 Additional Information: Source: [facility] POWERCHART Document Id: [id number] RESS MAKER Miscellaneous - Conversion, Historical Provider Ser - 06/10/2014 4:06 PM MATTRESS MAKER Adult Java Groovy Developer Intake/History Adult Java Groovy Developer Intake/History Entered On: 06/10/2014 16:08 MATTRESS MAKER Performed On: 06/10/2014 16:06 MATTRESS MAKER by ROBEL ROBINS [facility] Intake Chief Complaint : preop laparoscopic cholecystectomy [...] kg/m2 ROBEL ROBINS CMA - 06/10/2014 16:06 MATTRESS MAKER General Info Information Given By : Patient Languages : French Is Patient Female and 13-50 no hysterectomy : Yes Status : Patient denies Are you ? : No ROBEL ROBINS CMA - 06/10/2014 16:06 MATTRESS MAKER Subjective Pain Symptoms : Yes ROBEL ROBINS CMA - 06/10/2014 16:06 MATTRESS MAKER Pain Pain Assessment Grid Pain 1 Location : Abdomen Intensity : 2 ROBEL ROBINS CMA - 06/10/2014 16:06 MATTRESS MAKER Dependent Habits Tobacco Use/Currently Using : No Exposure to Tobacco Smoke : Other: never smoker Smoking Status : Never smoker ROBEL ROBINS [facility] - 06/10/2014 16:06 MATTRESS MAKER ID Screen Travel Within Last 21 Days : ROBEL Carrasco [facility] - 06/10/2014 16:06 MATTRESS MAKER Source: [facility] POWERCHART Document Id: [id number] MATTRESS MAKER!32 documented in this encounter Plan of Treatment Upcoming Encounters Date Type Specialty Care Team Description 06/22/2022 Appointment Laboratory Medicine Rusty Vee M.D. [address] [place] [phone] 06/22/2022 Diagnostic Pulmonary Medicine Rusty Vee M.D. [address] [place] [phone] 06/22/2022 Diagnostic Pulmonary Medicine Rusty Vee M.D. [address] [place] [phone] 06/22/2022 Appointment Radiology Rusty Vee M.D. [address] [place] [phone] 06/23/2022 Clinical Communication Admitting/Central Scheduling 06/28/2022 Appointment Pulmonary Medicine Rusty Vee M.D. [address] [place] [phone] 06/28/2022 Appointment Pulmonary Medicine Rusty Vee M.D. [address] [place] [phone] documented as of this encounter Visit Diagnoses Not on filedocumented in this encounter
--- OUTSIDE RECORDS SUMMARY | 2022-05-25 21:09 | XMS_ITS | Encounter Summary ---
:1975 Author Organization [facility] Address [address] [place] [address] Care Team Providers Name Role Phone Unavailable Primary Care Provider Unavailable Encounter Details Date Type Department Care Team Description 05/15/2014 Hospital Encounter HX [facility] Marsha Henriquez M.D. [address] [place], [place] [address] (Wo rk) Social History [...] at Date Recorded Female 05/03/2022 7:07 PM WEAVER AXMINSTER documented as of this encounter Medications at [...] JOSIAS ZAPIEN on 29 May 2014 11:34:21 WEAVER AXMINSTER l/m to call back. Addendum by CASSIDY ADHIKARI RN on 29 May 2014 08:46:52 WEAVER AXMINSTER From: CASSIDY ADHIKARI RN ( [facility] Nurse Line) To: Family Medicine Chargeback Specialist; Sent: 05/29/2014 08:46:52 WEAVER AXMINSTER Subject: FW: Med Management Addendum by TASHA HENRIQUEZ MD on 28 May 2014 17:20:51 WEAVER AXMINSTER From: TASHA HENRIQUEZ MD Sent: 05/28/2014 17:20:50 WEAVER AXMINSTER Subject: RE:Med Management Approved Order:warfarin (warfarin 5 mg oral tablet) See Instructions 5mg Mon, 2.5mg all other days or as directed by the INR clinic as of 04/17/14 Qty: 30 tab(s) Refills: 6 Substitutions Allowed Route To Pharmacy - [facility] [id number] Signed by TASHA HENRIQUEZ MD 05/28/2014 17:20:46 Addendum by TASHA HENRIQUEZ MD on 28 May 2014 17:20:41 WEAVER AXMINSTER From: TASHA HENRIQUEZ MD To: [facility] Nurse Shani; Sent: 05/28/2014 17:20:41 WEAVER AXMINSTER Subject: RE: Med Management Refill approved but needs to be seen. Please let him know. Thanks! From: SUDHA ARCOS RN ( [facility] Nurse Line) To: TASHA HENRIQUEZ MD; Sent: 05/28/2014 14:05:12 WEAVER AXMINSTER Subject: Med Management On hold pending signature Order:warfarin (warfarin 5 mg oral tablet) See Instructions 5mg Mon, 2.5mg all other days or as directed by the INR clinic as of 04/17/14 Qty: 30 tab(s) Refills: 6 Substitutions Allowed Route To Pharmacy - [facility] [id number] Unable to refill per RN refill protocol due to:Due for OV, Last 04/2013. Current coumadin dose as noted in pending Rx. Source: [facility] POWERCHART Document Id: [id number] Miscellaneous - Wali Mcclellan - 05/15/2014 12:29 PM CST Anticoagulation Patient Intake Anticoagulation Patient Intake Entered On: 05/15/2014 12:33 WEAVER AXMINSTER Performed On: 05/15/2014 12:29 WEAVER AXMINSTER by WALI MCCLELLAN RN Plan INR goal range : 2.0 - 3.0 Duration of Therapy : Lifelong Tablet Size : 5 mg WALI MCCLELLAN RN - 05/15/2014 12:29 WEAVER AXMINSTER Anticoagulation Management Plan Grid Date : 09/05/2013 [...] completed by : WALI Tracy RN - 05/15/2014 12:29 WEAVER AXMINSTER WALI MCCLELLAN RN - 05/15/2014 12:29 WEAVER AXMINSTER WALI MCCLELLAN RN - 05/15/2014 12:29 WALI REYNOLDS RN - 05/15/2014 12:29 WEAVER AXMINSTER Date : 12/26/2013 CDT 01/30/2014 CDT 03/06/2014 [...] time, no bleeding now left [facility] for Fabiola,call if changes Recommend Recheck : Other: 5 weeks Other: 5 weeks Other: 03/10/2014 Other: 03/20/14 Plan completed by : WALI Davidson RN - 05/15/2014 12:29 WALI REYNOLDS RN - 05/15/2014 12:29 WALI REYNOLDS RN - 05/15/2014 12:29 WALI REYNOLDS RN - 05/15/2014 12:29 WEAVER AXMINSTER Date : 03/20/2014 CDT 03/27/2014 CDT 04/10/2014 [...] lackey LM /pharmacy WALI MCCLELLAN RN - 05/15/2014 12:29 WEAVER AXMINSTER WALI MCCLELLAN RN - 05/15/2014 12:29 WEAVER AXMINSTER WALI MCCLELLAN RN - 05/15/2014 12:29 WEAVER AXMINSTER WALI MCCLELLAN RN - 05/15/2014 12:29 WEAVER AXMINSTER Date : 04/17/2014 CDT 04/24/2014 CDT 05/01/2014 WEAVER AXMINSTER 05/15/2014 WEAVER AXMINSTER Location of INR sample : Lab Lab [...] will trynoted dose called to mom Fabiola [phone] called to Fabiola/no changes Called to mother/Fabiola, not awareof any changes Recommend Recheck : One week One week Two weeks Two weeks Plan completed by : MARIA GUADALUPE FITCH OZZY WLAI ESPINOSA RN - 05/15/2014 12:29 WEAVER AXMINSTER WALI MCCLELLAN RN - 05/15/2014 12:29 WALI REYNOLDS RN - 05/15/2014 12:29 WALI REYNOLDS RN - 05/15/2014 12:29 WEAVER AXMINSTER Anticoagulation Assessment / History Visit : Phone management Plan of Care Date : 01/29/2008 CDT Primary Physician Anticoagulation : TASHA HENRIQUEZ MD 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 : DVT Lower, Other: Deep Phlebitis-Leg NEC CHADS2 Score Date : 09/05/2013 CDT WALI MCCLELLAN RN - 05/15/2014 12:29 WEAVER AXMINSTER Changes / Problems Changes/Problems Since Last Visit : None Been Scheduled For : None Missed Coumadin Doses : None Change In Intake : None Change In Medication : None Have You Had : None Plans to Travel : No WALI MCCLELLAN RN - 05/15/2014 12:29 WEAVER AXMINSTER Source: [facility] [employer] Document Id: [id number] WEAVER AXMINSTER!176 ER AXMINSTER Miscellaneous - Wali Mcclellan - 05/15/2014 10:19 AM CST Results Notification Document Contains Addenda Addendum by WALI MCCLELLAN RN on 15 May 2014 12:35:12 WEAVER AXMINSTER Orders called to mother/Fabiola. From: WALI MCCLELLAN RN ( Anticoagulation Nurse) To: Anticoagulation Nurse; Sent: 05/15/2014 10:19:45 WEAVER AXMINSTER Show up: 05/15/2014 10:20:00 WEAVER AXMINSTER Subject: Results Notification Results: Date Result Name Value Ref Range 05/15/2014 08:15 PT 20.2 second(s) 05/15/2014 08:15 INR 1.8 INR (0.8 - 1.1) Source: [facility] POWERCHART Document Id: [id number] documented in this encounter Plan of Treatment Upcoming Encounters Date Type Specialty Care Team Description 06/22/2022 Appointment Laboratory Medicine Rusty Vee M.D. [address] [place] [phone] 06/22/2022 Diagnostic Pulmonary Medicine Rusty Vee M.D. [address] [place] [phone] 06/22/2022 Diagnostic Pulmonary Medicine Rusty Vee M.D. [address] [place] [phone] 06/22/2022 Appointment Radiology Rusty Vee M.D. [address] [place] [phone] 06/23/2022 Clinical Communication Admitting/Central Scheduling 06/28/2022 Appointment Pulmonary Medicine Rusty Vee M.D. [address] [place] [phone] 06/28/2022 Appointment Pulmonary Medicine Rusty Vee M.D. [address] [place] [phone] documented as of this encounter Procedures Procedure Name Priority Date/Time Associated Comments Diagnosis PROTHROMBIN TIME Routine 05/15/2014 8:15 AM Resul ts for this (PT), P WEAVER AXMINSTER procedure are i n the results section. documented in this encounter Results (ABNORMAL) PT (Prothrombin Time) with INR (05/15/2014 8:15 AM WEAVER AXMINSTER) [facility] Method Time Signature Prothrombin 20.2 SECONDS [...] / Volume Laterality Blood 05/15/2014 8:15 AM WEAVER AXMINSTER Tasha Henriquez M.D. LAB BLOOD ADD-ON Performing Organization Address City/State/ZIP Code Phon e Number POWERCHART documented in this encounter Visit Diagnoses Not on filedocumented in this encounter
--- OUTSIDE RECORDS SUMMARY | 2022-05-25 21:09 | XMS_ITS | Encounter Summary ---
:1975 Author Organization [facility] Address [address] [place] [address] Care Team Providers Name Role Phone Unavailable Primary Care Provider Unavailable Encounter Details Date Type Department Care Team Description 05/01/2014 Hospital Encounter HX [facility] Marsha Henriquez M.D. [address] [place], [place] [address] (Wo rk) Social History [...] Date Recorded Female 05/03/2022 7:07 PM CERTIFIED GENETIC COUNSELOR documented as of this encounter Medications at Time of Discharge Medication Sig Dispensed Refills Start Date End Date multivitamin tablet Take 2 tablets by 0 3 mouth daily. FLUORIDE, SODIUM, Apply 1 application 0 3 12/31/2019 DENTAL topically 2 (two) times a day. documented as of this encounter Miscellaneous Notes Miscellaneous - Hanna Casas R.N. - 05/01/2014 12:30 PM CST Anticoagulation Patient Intake Anticoagulation Patient Intake Entered On: 05/01/2014 12:31 CERTIFIED GENETIC COUNSELOR Performed On: 05/01/2014 12:30 CERTIFIED GENETIC COUNSELOR by HANNA CASAS RN Plan INR goal range : 2.0 - 3.0 Duration of Therapy : Lifelong Tablet Size : 5 mg HANNA CASAS RN - 05/01/2014 12:30 CERTIFIED GENETIC COUNSELOR Anticoagulation Management Plan Grid Date : 09/05/2013 [...] darya BURGESS JM HANNA Rivera RN - 05/01/2014 12:30 CERTIFIED GENETIC COUNSELOR HANNA CASAS RN - 05/01/2014 12:30 CERTIFIED GENETIC COUNSELOR HANNA CASAS RN - 05/01/2014 12:30 CERTIFIED GENETIC COUNSELOR HANNA CASAS RN - 05/01/2014 12:30 CERTIFIED GENETIC COUNSELOR Date : 12/26/2013 CDT 01/30/2014 CDT 03/06/2014 [...] completed by : HANNA Eubanks RN - 05/01/2014 12:30 CERTIFIED GENETIC COUNSELOR HANNA CASAS RN - 05/01/2014 12:30 CERTIFIED GENETIC COUNSELOR HANNA CASAS RN - 05/01/2014 12:30 CERTIFIED GENETIC COUNSELOR HANNA CASAS RN - 05/01/2014 12:30 CERTIFIED GENETIC COUNSELOR Date : 03/20/2014 CDT 03/27/2014 CDT 04/10/2014 [...] by : darya lackey LM /pharmacy HANNA CASAS RN - 05/01/2014 12:30 CERTIFIED GENETIC COUNSELOR HANNA CASAS RN - 05/01/2014 12:30 CERTIFIED GENETIC COUNSELOR HANNA CASAS RN - 05/01/2014 12:30 CERTIFIED GENETIC COUNSELOR HANNA CASAS RN - 05/01/2014 12:30 CERTIFIED GENETIC COUNSELOR Date : 04/17/2014 CDT 04/24/2014 CDT 05/01/2014 CERTIFIED GENETIC COUNSELOR Location of INR sample : Lab [...] will trynoted dose called to mom Fabiola [phone] called to Fabiola/rayo changes Recommend Recheck : One week One week Two weeks Plan completed by : HANNA KUHN RN - 05/01/2014 12:30 CERTIFIED GENETIC COUNSELOR HANNA CASAS RN - 05/01/2014 12:30 CERTIFIED GENETIC COUNSELOR HANNA CASAS RN - 05/01/2014 12:30 CERTIFIED GENETIC COUNSELOR Anticoagulation Assessment / History Visit : Phone management Plan of Care Date : 01/29/2008 CDT Primary Physician Anticoagulation : TASHA HENRIQUEZ MD 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 - 05/01/2014 10:48 AM CST Results Notification Document Contains Addenda Addendum by HANNA CASAS RN on 01 May 2014 12:08:42 CERTIFIED GENETIC COUNSELOR result and orders called to pt From: KHADAR MEDINA RN ( Anticoagulation Nurse) To: Anticoagulation Nurse; Sent: 05/01/2014 10:48:16 CERTIFIED GENETIC COUNSELOR Show up: 05/01/2014 10:49:00 CERTIFIED GENETIC COUNSELOR Subject: Results Notification Results: Date Result Name Value Ref Range 05/01/2014 08:05 PT 27.3 second(s) 05/01/2014 08:05 INR 2.4 INR (0.8 - 1.1) Source: [facility] POWERCHART Document Id: [id number] Electronically signed by Conversion, [facility] Personnel Clerks Supervisor [id number] at 11/23/2016 12:04 AM CDT documented in this encounter Plan of Treatment Upcoming Encounters Date Type Specialty Care Team Description 06/22/2022 Appointment Laboratory Medicine Rusty Vee M.D. [address] [place] [phone] 06/22/2022 Diagnostic Pulmonary Medicine Rusty Vee M.D. [address] [place] [phone] 06/22/2022 Diagnostic Pulmonary Medicine Rusty Vee M.D. [address] [place] [phone] 06/22/2022 Appointment Radiology Rusty Vee M.D. [address] [place] [phone] 06/23/2022 Clinical Communication Admitting/Central Scheduling 06/28/2022 Appointment Pulmonary Medicine Rusty Vee M.D. [address] [place] [phone] 06/28/2022 Appointment Pulmonary Medicine Rusty Vee M.D. [address] [place] [phone] documented as of this encounter Procedures Procedure Name Priority Date/Time Associated Comments Diagnosis PROTHROMBIN TIME Routine 05/01/2014 8:05 AM Resul ts for this (PT), P CERTIFIED GENETIC COUNSELOR procedure are i n the results section. documented in this encounter Results (ABNORMAL) PT (Prothrombin Time) with INR (05/01/2014 8:05 AM CERTIFIED GENETIC COUNSELOR) [facility] gist Method Time Signature Prothrombin 27.3 [...] / Volume Laterality Blood 05/01/2014 8:05 AM CERTIFIED GENETIC COUNSELOR Tasha Henriquez M.D. LAB BLOOD ADD-ON Performing Organization Address City/State/ZIP Code Phon e Number POWERCHART documented in this encounter Visit Diagnoses Not on filedocumented in this encounter
--- OUTSIDE RECORDS SUMMARY | 2022-05-25 21:09 | XMS_ITS | Encounter Summary ---
:1975 Author Organization [facility] Address [address] [place] [address] Care Team Providers Name Role Phone Unavailable Primary Care Provider Unavailable Encounter Details Date Type Department Care Team Description 04/17/2014 Hospital Encounter HX [facility] Marsha Henriquez M.D. 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 documented as of this encounter Medications at [...] CDT Performed On: 04/17/2014 10:45 CDT by WLAI BRITO RN Plan INR goal range : [...] darya BURGESS JM WALI Ervin RN - 04/17/2014 10:45 CDT WALI BRITO [...] BRITO RN - 04/17/2014 10:45 CDT [facility] Document Id: [id number] CDT!146 Miscellaneous - Wali Brito - 04/17/2014 [...] INR 2.2 INR (0.8 - 1.1) Source: [facility] POWERCHART Document Id: [id number] documented in this encounter Plan of Treatment Upcoming Encounters Date Type Specialty Care Team Description 06/22/2022 Appointment Laboratory Medicine Rusty Vee M.D. [address] [place] [phone] 06/22/2022 Diagnostic Pulmonary Medicine Rusty Vee M.D. [address] [place] [phone] 06/22/2022 Diagnostic Pulmonary Medicine Rusty Vee M.D. [address] [place] [phone] 06/22/2022 Appointment Radiology Rusty Vee M.D. [address] [place] [phone] 06/23/2022 Clinical Communication Admitting/Central Scheduling 06/28/2022 Appointment Pulmonary Medicine Rusty Vee M.D. [address] [place] [phone] 06/28/2022 Appointment Pulmonary Medicine Rusty Vee M.D. [address] [place] [phone] documented as of this encounter Procedures Procedure Name Priority Date/Time Associated Comments Diagnosis PROTHROMBIN TIME Routine 04/17/2014 8:04 AM Resul ts for this (PT), P CDT procedure are i n the results section. documented in this encounter Results (ABNORMAL) PT (Prothrombin Time) with INR (04/17/2014 8:04 AM CDT) [facility] Method Time Signature Prothrombin 24.7 SECONDS POWERCHART [...]
--- OUTSIDE RECORDS SUMMARY | 2022-05-25 21:09 | XMS_ITS | Encounter Summary ---
:1975 Author Organization [facility] Address [address] [place] [address] Care Team Providers Name Role Phone Unavailable Primary Care Provider Unavailable Encounter Details Date Type Department Care Team Description 04/24/2014 Hospital Encounter HX [facility] Marsha Henriquez M.D. 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 FLUORIDE, SODIUM, Apply 1 application 0 3 12/31/2019 DENTAL topically 2 (two) times a day. documented as of this encounter Miscellaneous Notes Miscellaneous - Sudha Farooq R.N. - 04/24/2014 2:57 PM CDT Anticoagulation Patient [...] Plan completed by : darya BURGESS JM ly SUDAH FAROOQ RN - 04/24/2014 14:57 CDT SUDHA [...] will trynoted dose called to mom Fabiola [phone] Recommend Recheck : One week One week [...] FAROOQ RN - 04/24/2014 14:57 CDT [facility] Document Id: [id number] CDT!156 Miscellaneous - Sudha Farooq R.N. - 04/24/2014 1:49 PM CDT Anticoagulation Patient Intake Anticoagulation Patient Intake Entered On: 04/24/2014 13:51 CDT Performed On: 04/24/2014 13:49 CDT by SUDHA FAROOQ RN Plan INR [...] weeks Plan completed by : darya BURGESS SUDHA Arboleda RN - 04/24/2014 13:49 CDT SUDHA FAROOQ [...] a long time, no bleeding now left [facility] for Fabiola,call if changes Recommend Recheck : Other: 5 weeks Other: 5 weeks Other: 03/10/2014 Other: 03/20/14 Plan completed by : PATRICE lackey SUDHA FAROOQ RN - 04/24/2014 13:49 CDT [...] Other: Plan completed by : darya lackey [facility]/pharmacy SUDHA FAROOQ RN - 04/24/2014 13:49 CDT [...] DOMINIQUE RN - 04/24/2014 13:49 CDT Source: [facility] [employer] Document Id: [id number] CDT!131 Miscellaneous - Khadar Medina R.N. - 04/24/2014 11:20 AM CDT Results Notification Document Contains Addenda Addendum by SUDHA FAROOQ RN on 25 April 2014 09:38:14 CDT Done Addendum by SUDHA FAROOQ RN on 24 April 2014 13:53:04 CDT LMTC From: KHADAR MEDINA RN ( Anticoagulation Nurse) To: Anticoagulation Nurse; Sent: 04/24/2014 11:20:21 CDT Show up: 04/24/2014 11:21:00 CDT Subject: Results Notification Results: Date Result Name Value Ref Range 04/24/2014 08:00 PT 33.7 second(s) (8.7 - 11.8) 04/24/2014 08:00 INR 3.0 INR (0.9 - 1.1) Source: [facility] [employer] Document Id: [id number] Electronically signed by [facility] Cottage Master [id number] at 11/22/2016 2:10 AM CDT documented in this encounter Plan of Treatment Upcoming Encounters Date Type Specialty Care Team Description 06/22/2022 Appointment Laboratory Medicine Rusty Vee M.D. [address] [phone] 06/22/2022 Diagnostic Pulmonary Medicine Rusty eVe M.D. [address] [place] [phone] 06/22/2022 Diagnostic Pulmonary Medicine Rusty Vee M.D. [address] [place] [phone] 06/22/2022 Appointment Radiology Rusty Vee M.D. [address] [place] [phone] 06/23/2022 Clinical Communication Admitting/Central Scheduling 06/28/2022 Appointment Pulmonary Medicine Rusty Vee M.D. [address] [place] [phone] 06/28/2022 Appointment Pulmonary Medicine Rusty Vee M.D. [address] [place] [phone] documented as of this encounter Procedures Procedure Name Priority Date/Time Associated Comments Diagnosis PROTHROMBIN TIME Routine 04/24/2014 8:00 AM Resul ts for this (PT), P CDT procedure are i n the results section. documented in this encounter Results (ABNORMAL) PT (Prothrombin Time) with INR (04/24/2014 8:00 AM CDT) [facility]ist Method Time Signature Prothrombin 33.7 (H) [...]
--- OUTSIDE RECORDS SUMMARY | 2022-05-25 21:09 | XMS_ITS | Encounter Summary ---
:1975 Author Organization [facility] Address [address] [place] [address] Care Team Providers Name Role Phone Unavailable Primary Care Provider Unavailable Encounter Details Date Type Department Care Team Description 07/10/2014 Hospital Encounter HX [facility] Marsha Henriquez M.D. [address] [place], [place] [address] (Wo rk) Social History [...] at Date Recorded Female 05/03/2022 7:07 PM ACTUARIAL CONSULTANT documented as of this encounter Last Filed Vital Signs Vital Sign Reading Time Taken Comments Blood Pressure - - Pulse - - Temperature - - Respiratory Rate - - Oxygen Saturation - - Inhaled Oxygen Concentration - - Weight - - Height 157 cm (5' 1.81) 07/10/2014 7:24 AM ACTUARIAL CONSULTANT Body Mass Index - - documented in this encounter Medications at Time of Discharge Medication Sig Dispensed Refills Start Date End Date multivitamin tablet Take 2 tablets by 0 3 mouth daily. FLUORIDE, SODIUM, Apply 1 application 0 3 12/31/2019 DENTAL topically 2 (two) times a day. documented as of this encounter Miscellaneous Notes Miscellaneous - Khadar Banda R.N. - 07/10/2014 10:22 AM CST Anticoagulation Patient Intake Anticoagulation Patient Intake Entered On: 07/10/2014 10:26 ACTUARIAL CONSULTANT Performed On: 07/10/2014 10:22 ACTUARIAL CONSULTANT by KHADAR BANDA RN Plan INR goal range : 2.0 - 3.0 Duration of Therapy : Lifelong Tablet Size : 5 mg KHADAR BANDA RN - 07/10/2014 10:22 ACTUARIAL CONSULTANT Anticoagulation Management Plan Grid Date : [...] darya BURGESS JM KHADAR Mae RN - 07/10/2014 10:22 ACTUARIAL CONSULTANT KHADAR BANDA RN - 07/10/2014 10:22 ACTUARIAL CONSULTANT KHADAR BANDA RN - 07/10/2014 10:22 ACTUARIAL CONSULTANT KHADAR BANDA RN - 07/10/2014 10:22 ACTUARIAL CONSULTANT Date : 12/26/2013 CDT 01/30/2014 CDT [...] completed by : KHADAR Cho RN - 07/10/2014 10:22 ACTUARIAL CONSULTANT KHADAR BANDA RN - 07/10/2014 10:22 ACTUARIAL CONSULTANT KHADAR BANDA RN - 07/10/2014 10:22 ACTUARIAL CONSULTANT KHADAR BANDA RN - 07/10/2014 10:22 ACTUARIAL CONSULTANT Date : 03/20/2014 CDT 03/27/2014 CDT [...] lackey LM /pharmacy KHADAR BANDA RN - 07/10/2014 10:22 ACTUARIAL CONSULTANT KHADAR BANDA RN - 07/10/2014 10:22 ACTUARIAL CONSULTANT KHADAR BANDA RN - 07/10/2014 10:22 ACTUARIAL CONSULTANT KHADAR BANDA RN - 07/10/2014 10:22 ACTUARIAL CONSULTANT Date : 04/17/2014 CDT 04/24/2014 CDT 05/01/2014 ACTUARIAL CONSULTANT 05/15/2014 ACTUARIAL CONSULTANT Location of INR sample : Lab [...] will trynoted dose called to mom Fabiola [phone] called to Fabiola/no changes Called to mother/Fabiola, not awareof any changes Recommend Recheck : One week One week Two weeks Two weeks Plan completed by : KHADAR HACKETT RN - 07/10/2014 10:22 ACTUARIAL CONSULTANT KHADAR BANDA RN - 07/10/2014 10:22 KHADAR PALOMINO RN - 07/10/2014 10:22 ACTUARIAL CONSULTANT KHADAR BANDA RN - 07/10/2014 10:22 ACTUARIAL CONSULTANT Date : 06/03/2014 ACTUARIAL CONSULTANT 06/05/2014 ACTUARIAL CONSULTANT 06/10/2014 ACTUARIAL CONSULTANT 06/11/2014 ACTUARIAL CONSULTANT Location of INR sample : Lab [...] Fabiola granados. Hue will be staying in [place] 2wks post-surgery & have INR drawn there. [...] lovenox tomorrow AM as ordered. INR in [place] for next several weeks as pt will be recovering there. Recommend Recheck : Other: depending on Dr. Henriquez's preop. Other: 06/18 Other: 06/13/14 Plan completed by : KHADAR SANDERS RN - 07/10/2014 10:22 KHADAR PALOMINO RN - 07/10/2014 10:22 KHADAR PALOMINO RN - 07/10/2014 10:22 KHADAR PALOMINO RN - 07/10/2014 10:22 ACTUARIAL CONSULTANT Date : 06/14/2014 ACTUARIAL CONSULTANT 06/14/2014 ACTUARIAL CONSULTANT 06/16/2014 ACTUARIAL CONSULTANT 06/23/2014 ACTUARIAL CONSULTANT Location of INR sample : Clinic [...] Warfarin Dose : 20 20 Comment : [place] lab called with INR result from 06/13, reported they left a message with Dr. Henriquez and hadn't heard back, spoke with Fabiola granados, and gave doses, continue Lovenox and repeat INR 06/16, message left with INR clinic in [place] to contact [facility] Please contact [facility] on 06/16 for result and may call Fabiola at [phone] with instructions call to Fabiola/will stop Lovenox injections and take noted dose/pt has an appt here in [place] 06/23 so will do lab appt here that day Called to Fabiola/ Hue will be back at [facility] by next draw. will have done on . no changes to meds/diet. Recommend Recheck : Two days One week Two weeks Plan completed by : KHADAR Mattson LM RN - 07/10/2014 10:22 ACTUARIAL CONSULTANT KHADAR BANDA RN - 07/10/2014 10:22 ACTUARIAL CONSULTANT KHADAR BANDA RN - 07/10/2014 10:22 ACTUARIAL CONSULTANT KHADAR BANDA RN - 07/10/2014 10:22 ACTUARIAL CONSULTANT Date : 07/10/2014 ACTUARIAL CONSULTANT Location of INR sample : Lab Type of Sample : Venous INR Result : 1.9 Warfarin Dose : 5mg 07/10, then 5mg Mon, 2.5mg all other days Total Weekly Warfarin Dose : 20 Comment : called to Fabiola/Mom Recommend Recheck : One week Plan completed by : KHADAR Mae RN - 07/10/2014 10:22 ACTUARIAL CONSULTANT Anticoagulation Assessment / History Visit : Phone management Plan of Care Date : 01/29/2008 CDT Primary Physician Anticoagulation : TASHA HENRIQUEZ MD 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 : DVT Lower, Other: Deep Phlebitis-Leg NEC CHADS2 Score Date : 09/05/2013 CDT KHADAR BANDA RN - 07/10/2014 10:22 ACTUARIAL CONSULTANT Changes / Problems Changes/Problems Since Last Visit : None Been Scheduled For : None Missed Coumadin Doses : None Change In Intake : None Change In Medication : None Have You Had : None Plans to Travel : No KHADAR BADNA RN - 07/10/2014 10:22 ACTUARIAL CONSULTANT [facility] POWERCHART Document Id: [id number] ACTUARIAL CONSULTANT!244 ARIAL CONSULTANT Miscellaneous - Khadar Banda, R.N. - 07/10/2014 10:19 AM CST Results Notification From: KHADAR BANDA RN ( Anticoagulation Nurse) To: Anticoagulation Nurse; Sent: 07/10/2014 10:19:44 ACTUARIAL CONSULTANT Show up: 07/10/2014 10:20:00 ACTUARIAL CONSULTANT Subject: Results Notification Results: Date Result Name Value Ref Range 07/10/2014 08:05 PT 20.5 second(s) (8.7 - 11.8) 07/10/2014 08:05 INR 1.9 INR (0.9 - 1.1) Source: [facility] [employer] Document Id: [id number] Electronically signed by Conversion, [facility] Motor And Generator Brush Maker [id number] at 11/20/2016 10:25 PM CDT documented in this encounter Plan of Treatment Upcoming Encounters Date Type Specialty Care Team Description 06/22/2022 Appointment Laboratory Medicine Rusty Vee M.D. [address] [place] [address] [phone] 06/22/2022 Diagnostic Pulmonary Medicine Rusty Vee M.D. [address] [place] [phone] 06/22/2022 Diagnostic Pulmonary Medicine Rusty Vee M.D. [address] [place] [address] [phone] 06/22/2022 Appointment Radiology Rusty Vee M.D. [address] [place] [phone] 06/23/2022 Clinical Communication Admitting/Central Scheduling 06/28/2022 Appointment Pulmonary Medicine Rusty Vee M.D. [address] [place] [address] [phone] 06/28/2022 Appointment Pulmonary Medicine Rusty Vee M.D. [address] [place] [phone] documented as of this encounter Procedures Procedure Name Priority Date/Time Associated Comments Diagnosis PROTHROMBIN TIME Routine 07/10/2014 8:05 AM Resul ts for this (PT), P ACTUARIAL CONSULTANT procedure are i n the results section. documented in this encounter Results (ABNORMAL) PT (Prothrombin Time) with INR (07/10/2014 8:05 AM ACTUARIAL CONSULTANT) [facility] Method Time Signature Prothrombin 20.5 (H) 8.7 [...] / Volume Laterality Blood 07/10/2014 8:05 AM ACTUARIAL CONSULTANT Tasha Henriquez M.D. LAB BLOOD ADD-ON Performing Organization Address City/State/ZIP Code Phon e Number POWERCHART documented in this encounter Visit Diagnoses Not on filedocumented in this encounter
--- OUTSIDE RECORDS SUMMARY | 2022-05-25 21:09 | XMS_ITS | Encounter Summary ---
:1975 Author Organization [facility] Address [address] [place] [address] Care Team Providers Name Role Phone Unavailable Primary Care Provider Unavailable Encounter Details Date Type Department Care Team Description 05/29/2014 Hospital Encounter HX [facility] ED Harsh West M.D. [address] [place], [place] [phone] (Wo rk) Social History [...] at Date Recorded Female 05/03/2022 7:07 PM PUBLIC HEALTH POLICY ANALYST documented as of this encounter Last Filed Vital Signs Vital Sign Reading Time Taken Comments Blood Pressure 112/76 05/29/2014 9:30 AM PUBLIC HEALTH POLICY ANALYST Pulse 76 05/29/2014 8:37 AM PUBLIC HEALTH POLICY ANALYST Temperature - - Respiratory Rate 18 05/29/2014 8:37 AM PUBLIC HEALTH POLICY ANALYST Oxygen Saturation - - Inhaled Oxygen Concentration - - Weight - - Height 157.5 cm (5' 2) 05/29/2014 8:37 AM PUBLIC HEALTH POLICY ANALYST Body Mass Index - - documented in this encounter Discharge Summaries Fallon Moon R.N. - 05/29/2014 12:25 PM CST ED Discharge Instructions [facility] [address] [place] [address] Name: DORITA SHEFFIELD Date of : 1975 12:00 AM Visit Date: 05/29/2014 8:29 AM [facility] Number: [id number] Address: [address] [facility] [phone] Primary Care Provider: TASHA HENRIQUEZ MD IMPORTANT: [facility] in [place] would like to thank you for allowing [...] Provider No Appointments found Patient Education Materials: [id number] GALLSTONES WITH BILIARY COLIC [confirmed dx] The [...] arm, back, neck or jaw pain ?? [id number] [place] [address]. All rights reserved. This information is not [...] Democrat/Relationship Date Time Provider Signature Date Time Medication Reconciliation: Reconciliation is a process of identifying the most accurate list of all medications a patient is taking - including name, dosage, frequency, and route - and using this list to provide to the patient information about how to take those medications. DORITA SHEFFIELD or elee has reviewed the home medications you have [...] Democrat/Relationship Date Time Provider Signature Date Time This document has images extracted. Please consider using [employer] for all your patient education needs. Source: [facility] POWERCHART Document Id: [id number] IC HEALTH POLICY ANALYST Fallon Moon R.N. - 05/29/2014 12:25 PM CST ED Depart Summary [facility] Emergency Department Clinical Discharge Summary PERSON INFORMATION Name DORITA SHEFFIELD Age 39 Years 1975 12:00 AM Sex Female Language Azeri PCP TASHA HENRIQUEZ MD Marital Status Single Visit Id Visit Reason Abdominal pain; abdominal pain Specialty Enc Type Emergency Med Service Emergency Medicine Referred by Track Group [facility] ED Discharge 05/29/2014 12:25 PM Tracking Id [id number] Checkout 05/29/2014 12:25 PM Checkin 05/29/2014 8:29 AM Acuity 3 -Urgent Dispo Type * Discharged to Home or Self Care Arrival 05/29/2014 8:29 AM Reg Status Complete LOS 000 03:56 Address: [address] [facility] [phone] Comment: PROVIDER INFORMATION Provider Role Provider Contact Time FALLON MOON [employer] SYSTEMS ENGINEER Nurse 05/29/14 08:30 BELLA WEST MD ED Provider 05/29/14 08:33 FRANCO HUITRON LPN ED Nurse 05/29/14 12:00 DIAGNOSIS Gallstone Without Obstruction Comment: PATIENT EDUCATION INFORMATION Instructions: BILIARY COLIC w/Gallstone (cnfrmd) Follow up: With: Address: When: General Surgery Clinic Within Today Comments: at 2 pm (check in at 1:45 pm) with Dr Parikh Source: [facility] POWERCHART Document Id: [id number] IC HEALTH POLICY ANALYST documented in this encounter Medications at Time [...] ED Disposition Summary Entered On: 05/29/2014 12:24 PUBLIC HEALTH POLICY ANALYST Performed On: 05/29/2014 12:23 PUBLIC HEALTH POLICY ANALYST by FALLON MOON RN ED Disposition Summary Accompanied By : Mother Mode of Discharge : Ambulatory Transportation : Private vehicle Discharge From ED With : Home Med List Printed Discharge Instructions Given to Patient : Yes Patient Status at Discharge from ED : Improved Comment : Room clear of pt belongings. FALLON MOON RN - 05/29/2014 12:23 PUBLIC HEALTH POLICY ANALYST Source: [facility] Coherent Path Document Id: [id number] PUBLIC HEALTH POLICY ANALYST!9 IC HEALTH POLICY ANALYST Fallon Moon R.N. - 05/29/2014 9:03 AM CST ED Treatments and Procedures ED Treatments and Procedures Entered On: 05/29/2014 9:04 PUBLIC HEALTH POLICY ANALYST Performed On: 05/29/2014 9:03 PUBLIC HEALTH POLICY ANALYST by FALLON MOON RN Peripheral IV Peripheral IV Assess/Intervention Grid Peripheral IV #1 IV Activity : Start Number of Attempts : 2 Date of Insertion : 05/29/2014 PUBLIC HEALTH POLICY ANALYST IV Site : Antecubital Laterality : Right Catheter Size : 20 Catheter Type : Protective Site Condition : No complications FALLON MOON RN - 05/29/2014 9:03 PUBLIC HEALTH POLICY ANALYST Source: [employer] Document Id: [id number] PUBLIC HEALTH POLICY ANALYST!12 IC HEALTH POLICY ANALYST Bella West M.D. - 05/29/2014 8:45 AM CST Gallstones with biliary colic Patient: DORITA SHEFFIELD Age: 39 years Sex: Female : 1975 Author: BELLA WEST MD Attachments: None Associated Diagnosis: Gallstone Without Obstruction Basic Information Time seen: Date & time 05/29/2014 08:34:00. History source: Patient, EMS. Arrival mode: Ambulance. Additional information: Chief Complaint from Nursing Triage Note : Chief Complaint Description 05/29/2014 8:31 PUBLIC HEALTH POLICY ANALYST Chief Complaint Description right upper abdominal pain [...] She does live by herself in [facility] Review of Systems Constitutional symptoms: No fever [...] Surgical history: AV - Atrioventricular valve operation ([id number]) on 03/29/2013 at 38 Years. Comments: 04/05/2013 10:24 - TOOTIE LOPEZ [employer] WORKER Done at [facility] COLONOSCOPY W BIOPSY - 12/04/12 on [...] Examination Vital Signs: Vital Signs 05/29/2014 8:37 PUBLIC HEALTH POLICY ANALYST Temperature Axillary 36.5 DegC Peripheral Pulse Rate [...] Amylase Level (Order Processing): Stat, 05/29/2014 8:45 PUBLIC HEALTH POLICY ANALYST, Once CBC (includes Auto Differential) (Order Processing): Stat, 05/29/2014 8:45 PUBLIC HEALTH POLICY ANALYST, Once Comprehensive Metabolic Panel (Order Processing): Stat, 05/29/2014 8:45 PUBLIC HEALTH POLICY ANALYST, Once C-Reactive Protein (Order Processing): Stat, 05/29/2014 8:45 PUBLIC HEALTH POLICY ANALYST, Once Lipase Level (Order Processing): Stat, 05/29/2014 8:45 PUBLIC HEALTH POLICY ANALYST, Once PT/INR (Order Processing): Stat, 05/29/2014 8:46 PUBLIC HEALTH POLICY ANALYST, Once Urinalysis with Culture if Indicated (Order Processing): Stat, 05/29/2014 8:46 PUBLIC HEALTH POLICY ANALYST, Once, Clean VoidUrine Patient Care: ED Abdominal Pain (Order Processing) Pharmacy: Sodium Chloride 0.9% 1000 mL (Order Processing): 150 mL/hr, IV, Launch Orders Radiology: US Abdomen Limited (Order Processing): 05/29/2014 10:35 PUBLIC HEALTH POLICY ANALYST, severe RUQ, RT flank pain woke her up today; Down's syndrome. ate raspberries, apple juice 0700. labs okay., Stat, Patient Bed, Once, 05/29/2014 10:35 PUBLIC HEALTH POLICY ANALYST, [facility] ED. Results review:Lab results : Lab View 05/29/2014 9:48 PUBLIC HEALTH POLICY ANALYST UUA Source. UA Color Yellow UA Clarity [...] Occ-3 /HPF UR Bacteria Present 05/29/2014 9:00 PUBLIC HEALTH POLICY ANALYST Hgb 12.9 g/dL Hct 39.6 % WBC 3.0 x10(9)/L LOW RBC 4.10 x10(12)/L MCV 96.6 fL RDW 13.4 % Platelet 140 x10(9)/L LOW Neutro Absolute 1.89 10(9)/L Lymph Absolute 0.74 x10(9)/L LOW Chase Absolute 0.33 x10(9)/L Eos Absolute 0.03 x10(9)/L [...] Stable. Disposition: Discharged: to home. Prescriptions: Prescription [facility]: traMADol 50 mg oral tablet (Prescribe): [...] Discharge ED Patient (Order Processing): 05/29/2014 11:55 PUBLIC HEALTH POLICY ANALYST, Once. Electronically Signed By: BELLA WEST MD On: 05/29/2014 12:13 PM Modified by and Electronically Signed by: BELLA WEST MD On: 05/29/2014 10:11 AM Source: [facility] POWERCHART Document Id: [id number] IC HEALTH POLICY ANALYST Fallon Moon R.N. 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 ; Onset Date:03/26/2013 ; Recorder: TOOTIE LOPEZ LPN; Confirmation: Confirmed ; Classification: Nursing ; Code: 928093105 ; Contributor System: [email or web address] ; Last Updated: 04/05/2013 10:22 CDT ; Life Cycle Date: 04/05/2013 ; 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: Active ; Responsible Provider: TOOTIE LOPEZ LPN; Vocabulary: SNOMED CT ; Comments: 04/05/2013 10:22 - TOOTIE LOPEZ LPN defect, transitional Cellulitis, NOS (ICD-9-CM :682.9 ) Name of Problem: Cellulitis, NOS ; Recorder: TOOTIE LOPEZ LPN; Confirmation: Confirmed ; Classification: Nursing ; Code: 682.9 ; Contributor System: [email or web address] ;Last Updated: 04/05/2013 10:27 CDT ; Life [...] Nursing ; Code: 746.5 ; Contributor System: [email or web address] ; Last Updated: 04/05/2013 10:25 CDT ; [...] Nursing ; Code: 286.9 ; Contributor System: [email or web address] ; Last Updated: 09/05/2013 11:40 CDT ; 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: Active ; Vocabulary: ICD-9-CM DVT, lower extremity (ICD-9-CM :453.40 ) Name of Problem: DVT, lower extremity ; Onset Date: 2006 ; Recorder: TOOTIE LOPEZ LPN; Confirmation: Confirmed ; Classification: Nursing ; Code: 453.40 ; Contributor System: [employer]Chart ; Last Updated: 04/05/2013 10:26 CDT ; Life Cycle Date: 04/05/2013 ; 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: Active ; Responsible Provider: TOOTIE LOPEZ LPN; Vocabulary: ICD-9-CM Impaired Fasting Glucose (ICD-9-CM :790.21 ) Name of Problem: Impaired Fasting Glucose ; Onset Date:07/22/2010 ; Confirmation: Confirmed ; Classification: Medical ; Code: 790.21 ; Contributor System: [facility]_HX_PR_UPLOAD ; Last Updated: 09/21/2013 19:06 CDT ; 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: Active ; Vocabulary: ICD-9-CM ; Comments: - Impaired fasting glucose Irregular Menstrual Cycle (ICD-9-CM :626.4 ) Name of Problem: Irregular Menstrual Cycle ; Onset Date: 07/28/2010 ; Confirmation: Confirmed ; Classification: Medical ; Code: 626.4 ; Contributor System: [facility]_HX_PR_UPLOAD ; Last Updated: 09/21/2013 19:06 CDT ; 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: Active ; Vocabulary: ICD-9-CM ; Comments: - Irregular menses Mitral valve regurgitation NOS (ICD-9-CM :424.0 ) Name of Problem: Mitral valve regurgitation NOS ; Recorder: TOOTIE LOPEZ LPN; Confirmation: Confirmed ; Classification: Nursing ; Code: 424.0 ; Contributor System: [email or web address] ; Last Updated: 04/05/2013 10:25 CDT ; Life Cycle Date: 04/05/2013 ; 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: Active ; Responsible Provider: TOOTIE LOPEZ LPN; Vocabulary: ICD-9-CM ; Comments: 04/05/2013 10:25 - TOOTIE LOPEZ LPN unknown date of dx Mixed Hyperlipidemia (ICD-9-CM :272.2 ) Name of Problem: Mixed Hyperlipidemia ; Onset Date: 07/22/2010 ; Confirmation: Confirmed ; Classification: Medical ; Code: 272.2 ; Contributor System: [facility]_HX_PR_UPLOAD ; Last Updated: 09/21/2013 19:06 [...] Medical ; Code: 451.19 ; Contributor System: [facility] _HX_PR_UPLOAD ; Last Updated: 11/20/2013 14:52 CDT ; 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: Active ; Vocabulary: ICD-9-CM ; Comments: - Phlebitis and thrombophlebitis of other deep vessels of lower extremities Primary Hypercoagulable State (ICD-9-CM :289.81 ) Name of Problem: Primary Hypercoagulable State ; Onset Date: 01/29/2008 ; Confirmation: Confirmed ; Classification: Medical ; Code: 289.81 ; Contributor System: [facility]_HX_PR_UPLOAD ; Last Updated: 09/21/2013 19:06 [...] PNED ; Probability: 0 ; Diagnosis Code: [id number] Triage Chief Complaint Description : right upper abdominal pain for 2 days. Information Given By : Patient, EMS Accompanied By : EMS Mode of Arrival ED : Ambulance Track : Medical Languages : Azeri Treatments Prior to Arrival : None Are you ? : No Is Patient Female and 13-50 no hysterectomy : Yes Status : Patient denies CHAYOANDREASFALLON RN - 05/29/2014 8:31 PUBLIC HEALTH POLICY ANALYST Pain Assessment Pain Symptoms : Yes FALLON MOON RN - 05/29/2014 8:31 PUBLIC HEALTH POLICY ANALYST Pain Pain Assessment Grid Pain 1 Location : Abdomen Laterality : Right Intensity : 10 FALLON MOON RN - 05/29/2014 8:31 PUBLIC HEALTH POLICY ANALYST ИРИНА DCP GENERIC CODE Tracking Acuity : 3 -Urgent Tracking Group : [facility] ED FALLON MOON RN - 05/29/2014 8:31 PUBLIC HEALTH POLICY ANALYST ID Screen Travel Within Last 21 Days : No FALLON MOON RN - 05/29/2014 8:31 PUBLIC HEALTH POLICY ANALYST Respiratory Airway : Patent Respirations : Unlabored Respiratory Pattern : Regular Respiratory Detailed Assessment : Yes FALLON MOON RN - 05/29/2014 8:31 PUBLIC HEALTH POLICY ANALYST Resp Detailed Breath Sounds Assessment Grid BUL : Clear BLL : Clear FALLON MOON - 05/29/2014 8:31 PUBLIC HEALTH POLICY ANALYST Cardiovascular Heart Rhythm : Regular Skin Color : Normal for ethnicity Skin Description : Dry Skin Temperature : Warm FALLON MOON - 05/29/2014 8:31 PUBLIC HEALTH POLICY ANALYST Neurological Last Well Time Known : Not applicable Level of Consciousness : Alert Orientation : Oriented x 3 Characteristics of Speech : Appropriate for age FALLON MOON - 05/29/2014 8:31 PUBLIC HEALTH POLICY ANALYST ED Psychosocial Affect/Behavior : Calm, Cooperative Domestic Abuse Concerns : None FALLON MOON - 05/29/2014 8:31 PUBLIC HEALTH POLICY ANALYST Gastrointestinal Nutrition ED : Adequate FALLON MOON - 05/29/2014 8:31 PUBLIC HEALTH POLICY ANALYST Musculoskeletal Fall Prevention Education Provided : Yes FALLON MOON - 05/29/2014 8:31 PUBLIC HEALTH POLICY ANALYST Social Habits Tobacco Use/Currently Using : No Smoking Status : Never smoker FALLON MOON - 05/29/2014 8:31 PUBLIC HEALTH POLICY ANALYST [facility] Document Id: [id number] PUBLIC HEALTH POLICY ANALYST!55 IC HEALTH POLICY ANALYST Libby Elliott C.N.A. - 05/29/2014 8:30 AM CST ED Pre-Arrival Note Pre-Arrival Summary Name: , Current Date: 05/29/2014 08:30:45 PUBLIC HEALTH POLICY ANALYST Gender: Female Age: 39 Pre-Arrival Type: Ambulance ETA: 05/29/2014 08:55:00 PUBLIC HEALTH POLICY ANALYST Presenting Problem: RUQ abd pain Pre-Arrival User: MAISHA GONZALEZ RN Referring Source: Location: 03 Pre-Arrival Communication Form ruq abd pain for 2days, worse today. P81,R18, sats 100%,BP97/73. HX of heart valve replacement, on blood thinners Vital Signs: Miscellaneous Issues: Source: [facility] Coherent Path Document Id: [id number] IC HEALTH POLICY ANALYST documented in this encounter Miscellaneous Notes Miscellaneous - Fallon Moon R.N. - 05/29/2014 12:24 PM CST Valuables/Belongings Valuables/Belongings Entered On: 05/29/2014 12:24 PUBLIC HEALTH POLICY ANALYST Performed On: 05/29/2014 12:24 PUBLIC HEALTH POLICY ANALYST by FALLON MOON RN Valuables/Belongings Comment : Room clear of pt belongings. FALLON MOON RN - 05/29/2014 12:24 PUBLIC HEALTH POLICY ANALYST Source: [facility] Co[employer] Path Document Id: [id number] PUBLIC HEALTH POLICY ANALYST!3 IC HEALTH POLICY ANALYST Miscellaneous - Fallon Moon R.N. - 05/29/2014 8:29 AM CST Facility Charge Ticket 2.0 11.0 DX Facility Charge Ticket 2.0 11.0 DX Entered On: 05/29/2014 12:24 PUBLIC HEALTH POLICY ANALYST Performed On: 05/29/2014 8:29 PUBLIC HEALTH POLICY ANALYST by FALLON MOON RN Facility Charge Ticket [...] Control : 12 Lynx Visit Level : 32701 Level 4 Treatments Prior to Arrival : None FALLON MOON RN - 05/29/2014 12:24 PUBLIC HEALTH POLICY ANALYST Source: [facility] POWERCHART Document Id: [id number] PUBLIC HEALTH POLICY ANALYST!19 IC HEALTH POLICY ANALYST documented in this encounter Plan of Treatment Upcoming Encounters Date Type Specialty Care Team Description 06/22/2022 Appointment Laboratory Medicine Rusty Vee M.D. [address] [place] [phone] 06/22/2022 Diagnostic Pulmonary Medicine Rusty Vee M.D. [address] [place] [phone] 06/22/2022 Diagnostic Pulmonary Medicine Rusty Vee M.D. [address] [place] [phone] 06/22/2022 Appointment Radiology Rusty Vee M.D. [address] [place] [phone] 06/23/2022 Clinical Communication Admitting/Central Scheduling 06/28/2022 Appointment Pulmonary Medicine Rusty Vee M.D. [address] [place] [phone] 06/28/2022 Appointment Pulmonary Medicine Rusty Vee M.D. [address] [place] [phone] documented as of this encounter Procedures Procedure Name Priority Date/Time Associated Comments Diagnosis URINALYSIS, MIDSTREAM, Routine 05/29/2014 9:48 AM Results for this WITH CULTURE IF PUBLIC HEALTH POLICY ANALYST procedure ar e in INDICATED the results section. AUTOMATED Routine 05/29/2014 9:00 AM Results f or this DIFFERENTIAL, B PUBLIC HEALTH POLICY ANALYST procedure ar e in the results section. PROTHROMBIN TIME (PT), Routine 05/29/2014 9:00 AM Results for this P PUBLIC HEALTH POLICY ANALYST procedure are i n the results section. CBC WITH DIFFERENTIAL, Routine 05/29/2014 9:00 AM Results for this B PUBLIC HEALTH POLICY ANALYST procedure are i n the results section. C-REACTIVE PROTEIN Routine 05/29/2014 9:00 AM Res ults for this (CRP), S/P PUBLIC HEALTH POLICY ANALYST procedure are i n the results section. LIPASE, S/P Routine 05/29/2014 9:00 AM Results f or this PUBLIC HEALTH POLICY ANALYST procedure are i n the results section. AMYLASE, TOT, S Routine 05/29/2014 9:00 AM Result s for this PUBLIC HEALTH POLICY ANALYST procedure are i n the results section. COMPREHENSIVE Routine 05/29/2014 9:00 AM Results for this METABOLIC PANEL, S/P PUBLIC HEALTH POLICY ANALYST procedu re are in the results section. documented in this encounter Results (ABNORMAL) Urinalysis, Midstream, with culture if indicated (05/29/2014 9:48 AM PUBLIC HEALTH POLICY ANALYST) [facility] Method Time Signature Source Clean Void POWERCHART [...] Negative Negative POWERCHART Esterase Specific 1.004 POWERCHART [place], POCT, U HXUR WBC. None Seen None Seen POWERCHART HPF HXUR RBC. Occ-2 None Seen POWERCHART HPF Squamous Occ-3 (A) None Seen POWERCHART Epithelial HPF HXUR Bacteria, Present (A) None Seen POWERCHART Specimen (Source) Anatomical Collection Method Collection Time Re ceived Time Location / / Volume Laterality Urine 05/29/2014 9:48 AM PUBLIC HEALTH POLICY ANALYST Bella West M.D. LAB URINE ORDERABLES Performing Organization Address City/State/ZIP Code Phon e Number POWERCHART (ABNORMAL) Automated Differential (05/29/2014 9:00 AM PUBLIC HEALTH POLICY ANALYST) [facility] Method Time Signature Absolute 1.89 1.70 - POWERCHART Neutrophils 7.00 109L Monocytes 0.33 0.30 - POWERCHART 0.90 X109L Eosinophils 0.03 (L) 0.05 - POWERCHART 0.50 X109L Absolute 0.02 0.00 - POWERCHART Basophil 0.30 X109L Lymphocytes 0.74 (L) 0.90 - POWERCHART 2.90 X109L Specimen Anatomical Collection Method Collection Time Receive d Time (Source) Location / / Volume Laterality Blood 05/29/2014 9:00 AM 4 9:00 PUBLIC HEALTH POLICY ANALYST AM PUBLIC HEALTH POLICY ANALYST Bella West M.D. LAB BLOOD ADD-ON Performing Organization Address City/State/ZIP Code Phon e Number POWERCHART (ABNORMAL) PT (Prothrombin Time) with INR (05/29/2014 9:00 AM PUBLIC HEALTH POLICY ANALYST) [employer] Method Time Signature Prothrombin 23.8 SECONDS POWERCHART [...] / Volume Laterality Blood 05/29/2014 9:00 AM PUBLIC HEALTH POLICY ANALYST Bella West M.D. LAB BLOOD ADD-ON Performing Organization Address City/State/ZIP Code Phon e Number POWERCHART (ABNORMAL) CBC with Differential (05/29/2014 9:00 AM PUBLIC HEALTH POLICY ANALYST) P athologist Signature Hematocrit 39.6 34.9 - POWERCHART 44.5 Hemoglobin 12.9 12.0 - POWERCHART 15.5 GDL MCV 96.6 82.0 - POWERCHART 98.0 FL Platelet Count 140 (L) 150 - 450 POWERCHART X109L Erythrocytes 4.10 3.90 - POWERCHART 5.03 P6008H HX RDW 13.4 11.9 - POWERCHART 15.5 Leukocytes 3.0 (L) 3.5 - 10.5 POWERCHART X109L Specimen (Source) Anatomical Collection Method Collection Time Re ceived Time Location / / Volume Laterality Blood 05/29/2014 9:00 AM PUBLIC HEALTH POLICY ANALYST Bella West M.D. LAB BLOOD ADD-ON Performing Organization Address City/State/ZIP Code Phon e Number POWERCHART Lipase (05/29/2014 9:00 AM PUBLIC HEALTH POLICY ANALYST) P athologist Signature Lipase, S 34 10 - 73 UL POWERCHART Specimen (Source) Anatomical Collection Method Collection Time Re ceived Time Location / / Volume Laterality Blood 05/29/2014 9:00 AM PUBLIC HEALTH POLICY ANALYST Bella West M.D. LAB BLOOD ADD-ON Performing Organization Address City/State/ZIP Code Phon e Number POWERCHART CRP (C-Reactive Protein) (05/29/2014 9:00 AM PUBLIC HEALTH POLICY ANALYST) P athologist Signature C-Reactive 6.3 <=8.0 MGL POWERCHART Protein (CRP), S Specimen (Source) Anatomical Collection Method Collection Time Re ceived Time Location / / Volume Laterality Blood 05/29/2014 9:00 AM PUBLIC HEALTH POLICY ANALYST Bella West M.D. LAB BLOOD ADD-ON Performing Organization Address City/State/ZIP Code Phon e Number POWERCHART (ABNORMAL) CMP (Comprehensive Metabolic Panel) (05/29/2014 9:00 AM PUBLIC HEALTH POLICY ANALYST) Patholo gist Method Time Signature Chloride, S [...] POWERCHART GDL eGFR Black/ >60 >=60 POWERCHART [place]ian [id number] 2 HXeGFR (MDRD) 56 (L) >=60 POWERCHART [id number] 2 Comment: Results are in mL/min/1.73m CKD [...] / Volume Laterality Blood 05/29/2014 9:00 AM PUBLIC HEALTH POLICY ANALYST Bella West M.D. LAB BLOOD ADD-ON Performing Organization Address City/State/ZIP Code Phon e Number POWERCHART Amylase, Total (05/29/2014 9:00 AM PUBLIC HEALTH POLICY ANALYST) P athologist Signature Amylase, Total, 67 26 - 102 UL POWERCHART S Specimen (Source) Anatomical Collection Method Collection Time Re ceived Time Location / / Volume Laterality Blood 05/29/2014 9:00 AM PUBLIC HEALTH POLICY ANALYST Bella West M.D. LAB BLOOD ADD-ON Performing Organization Address City/State/ZIP Code Phon e Number POWERCHART documented in this encounter Visit Diagnoses Not on filedocumented in this encounter
--- OUTSIDE RECORDS SUMMARY | 2022-05-25 21:09 | XMS_ITS | Encounter Summary ---
:1975 Author Organization [facility] Address [address] [place] [address] Care Team Providers Name Role Phone Unavailable Primary Care Provider Unavailable Encounter Details Date Type Department Care Team Description 07/31/2014 Hospital Encounter HX [facility] Marsha Henriquez M.D. [address] [place], [place] [address] [...] at Date Recorded Female 05/03/2022 7:07 PM TRADING ANALYST documented as of this encounter Last Filed Vital Signs Vital Sign Reading Time Taken Comments Blood Pressure - - Pulse - - Temperature - - Respiratory Rate - - Oxygen Saturation - - Inhaled Oxygen Concentration - - Weight - - Height 157 cm (5' 1.81) 07/31/2014 7:19 AM TRADING ANALYST Body Mass Index - - documented in this encounter Medications at Time of Discharge Medication Sig Dispensed Refills Start Date End Date multivitamin tablet Take 2 tablets by 0 3 mouth daily. FLUORIDE, SODIUM, Apply 1 application 0 3 12/31/2019 DENTAL topically 2 (two) times a day. documented as of this encounter Miscellaneous Notes Miscellaneous - Khadar Banda R.N. - 07/31/2014 12:17 PM CST Anticoagulation Patient Intake Anticoagulation Patient Intake Entered On: 07/31/2014 12:20 TRADING ANALYST Performed On: 07/31/2014 12:17 TRADING ANALYST by KHADAR BANDA RN Plan INR goal range : 2.0 - 3.0 Duration of Therapy : Lifelong Tablet Size : 5 mg KHADAR BANDA RN - 07/31/2014 12:17 TRADING ANALYST Anticoagulation Management Plan Grid Date : 09/05/2013 [...] darya BURGESS JM KHADAR Mae RN - 07/31/2014 12:17 TRADING ANALYST KHADAR BANDA RN - 07/31/2014 12:17 TRADING ANALYST KHADAR BANDA RN - 07/31/2014 12:17 TRADING ANALYST KHADAR BANDA RN - 07/31/2014 12:17 TRADING ANALYST Date : 12/26/2013 CDT 01/30/2014 CDT 03/06/2014 [...] a long time, no bleeding now left [facility] for Fabiola,call if changes Recommend Recheck : Other: 5 weeks Other: 5 weeks Other: 03/10/2014 Other: 03/20/14 Plan completed by : KHADAR Cho RN - 07/31/2014 12:17 TRADING ANALYST KHADAR BANDA RN - 07/31/2014 12:17 TRADING ANALYST KHADAR BANDA RN - 07/31/2014 12:17 TRADING ANALYST KHADAR BANDA RN - 07/31/2014 12:17 TRADING ANALYST Date : 03/20/2014 CDT 03/27/2014 CDT 04/10/2014 [...] lackey LM /pharmacy KHADAR BANDA RN - 07/31/2014 12:17 TRADING ANALYST KHADAR BANDA RN - 07/31/2014 12:17 TRADING ANALYST KHADAR BANDA RN - 07/31/2014 12:17 TRADING ANALYST KHADAR BANDA RN - 07/31/2014 12:17 TRADING ANALYST Date : 04/17/2014 CDT 04/24/2014 CDT 05/01/2014 TRADING ANALYST 05/15/2014 TRADING ANALYST Location of INR sample : Lab [...] will trynoted dose called to mom Fabiola [phone] called to Fabiola/no changes Called to mother/Fabiola, not awareof any changes Recommend Recheck : One week One week Two weeks Two weeks Plan completed by : KHADAR HACKETT RN - 07/31/2014 12:17 TRADING ANALYST KHADAR BANDA RN - 07/31/2014 12:17 TRADING ANALYST KHADAR BANDA RN - 07/31/2014 12:17 TRADING ANALYST KHADAR BANDA RN - 07/31/2014 12:17 TRADING ANALYST Date : 06/03/2014 TRADING ANALYST 06/05/2014 TRADING ANALYST 06/10/2014 TRADING ANALYST 06/11/2014 TRADING ANALYST Location of INR sample : Lab [...] Fabiola granados. Hue will be staying in [place] 2wks post-surgery & have INR drawn there. [...] lovenox tomorrow AM as ordered. INR in [place] for next several weeks as pt will be recovering there. Recommend Recheck : Other: depending on Dr. Henriquez's preop. Other: 06/18 Other: 06/13/14 Plan completed by : KHADAR SANDERS RN - 07/31/2014 12:17 KHADAR PALOMINO RN - 07/31/2014 12:17 KHADAR PALOMINO RN - 07/31/2014 12:17 HKADAR PALOMINO RN - 07/31/2014 12:17 TRADING ANALYST Date : 06/14/2014 TRADING ANALYST 06/14/2014 TRADING ANALYST 06/16/2014 TRADING ANALYST 06/23/2014 TRADING ANALYST Location of INR sample : Clinic [...] Warfarin Dose : 20 20 Comment : [place] lab called with INR result from 06/13, reported they left a message with Dr. Henriquez and hadn't heard back, spoke with Fabiola granados, and gave doses, continue Lovenox and repeat INR 06/16, message left with INR clinic in [place] to contact CF Please contact [facility] lab on 06/16 for result and may call Fabiola at [phone] with instructions call to Fabiola/will stop Lovenox [...] KHADAR Mattson LM RN - 07/31/2014 12:17 TRADING ANALYST KHADAR BANDA RN - 07/31/2014 12:17 TRADING ANALYST KHADAR BANDA RN - 07/31/2014 12:17 TRADING ANALYST KHADAR BANDA RN - 07/31/2014 12:17 TRADING ANALYST Date : 07/10/2014 TRADING ANALYST 07/17/2014 TRADING ANALYST 07/31/2014 TRADING ANALYST Location of INR sample : Lab Lab Lab Type of Sample : Venous Venous Venous INR Result : 1.9 2.2 3.0 Warfarin Dose : 5mg /, then 5mg Mon, 2.5mg all other days 5mg Mon and 2.5mg all other days 5mg Mon, 2.5mg all other days Total Weekly Warfarin Dose : 20 20 20 Comment : called to Fabiola/Mom Called to Fabiola/Mom. No changes. 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 - 07/31/2014 10:19 AM CST Results Notification From: SUDHA HOLLEY RN ( Anticoagulation Nurse) To: Anticoagulation Nurse; Sent: 07/31/2014 10:19:57 TRADING ANALYST Show up: 07/31/2014 10:20:00 TRADING ANALYST Subject: Results Notification Results: Date Result Name Value Ref Range 07/31/2014 08:07 PT 35.1 second(s) 07/31/2014 08:07 INR 3.0 INR (0.8 - 1.1) Source: [facility] [employer] Document Id: [id number] documented in this encounter Plan of Treatment Upcoming Encounters Date Type Specialty Care Team Description 06/22/2022 Appointment Laboratory Medicine Rusty Vee M.D. [address] [place] [phone] 06/22/2022 Diagnostic Pulmonary Medicine Rusty Vee M.D. [address] [place] [phone] 06/22/2022 Diagnostic Pulmonary Medicine Rusty Vee M.D. [address] [place] [phone] 06/22/2022 Appointment Radiology Rusty Vee M.D. [address] [place] [address] [phone] 06/23/2022 Clinical Communication Admitting/Central Scheduling 06/28/2022 Appointment Pulmonary Medicine Rusty Vee M.D. [address] [place] [phone] 06/28/2022 Appointment Pulmonary Medicine Rusty Vee M.D. [address] [place] [phone] documented as of this encounter Procedures Procedure Name Priority Date/Time Associated Comments Diagnosis PROTHROMBIN TIME Routine 07/31/2014 8:07 AM Resul ts for this (PT), P TRADING ANALYST procedure are i n the results section. documented in this encounter Results (ABNORMAL) PT (Prothrombin Time) with INR (07/31/2014 8:07 AM TRADING ANALYST) [facility] Method Time Signature Prothrombin 35.1 SECONDS POWERCHART [...] / Volume Laterality Blood 07/31/2014 8:07 AM TRADING ANALYST Tasha Henriquez M.D. LAB BLOOD ADD-ON Performing Organization Address City/State/ZIP Code Phon e Number POWERCHART documented in this encounter Visit Diagnoses Not on filedocumented in this encounter
--- OUTSIDE RECORDS SUMMARY | 2022-05-25 21:09 | XMS_ITS | Encounter Summary ---
:1975 Author Organization [facility] Address [address] [place] [address] Care Team Providers Name Role Phone Unavailable Primary Care Provider Unavailable Encounter Details Date Type Department Care Team Description 06/09/2014 Hospital Encounter H[facility] Eddi Parikh SURGCLINI M.D. [address] [place] [phone] (Wo rk) Social History Tobacco [...] at Date Recorded Female 05/03/2022 7:07 PM DRAGGER documented as of this encounter Medications at Time of Discharge Medication Sig Dispensed Refills Start Date End Date multivitamin tablet Take 2 tablets by 0 3 mouth daily. FLUORIDE, SODIUM, Apply 1 application 0 3 12/31/2019 DENTAL topically 2 (two) times a day. documented as of this encounter Miscellaneous Notes Telephone Encounter - Noah Chu RViktor - 06/09/2014 11:09 AM DRAGGER laparoscopic cholecystectomy, possible open 06-11-14 From: NOAH CHU RN Sent: 06/09/2014 11:09:19 DRAGGER Subject: laparoscopic cholecystectomy, possible open 06-11-14 SURGERY NURSE OFFICE SERVICE COORDINATOR Skin Alert Assessment: Complete this section only [...] Yes Comment: _ Do you have any yarsani or other objection to having a blood transfusion? (_x)No (_)Yes Scheduling Follow-Up: Shoe Lacer requested: (_x) N/A (_) Yes Comment: _ [...] then no styling products in the hair. -bulk delivery driver required for same day surgery patients, [...] appointments: 1st po with surgeon or physician preschool assistant principal: (x_) made (_)TBD (_)Audiology appointment (PE tubes), (_)2 days post op ultrasound to r/o DVT (VNUS closure), (_)PO OT appt made (Hand surgery if requested) Phone appt completed w castro Harper. Source: [facility] POWERCHART Document Id: [id number] Electronically signed by Lay, [employer] Planter Machine Operator [id number] at 11/22/2016 9:43 PM CDT documented in this encounter Plan of Treatment Upcoming Encounters Date Type Specialty Care Team Description 06/22/2022 Appointment Laboratory Medicine Rusty Vee M.D. [address] [place] [phone] 06/22/2022 Diagnostic Pulmonary Medicine Rusty Vee M.D. [address] [place] [phone] 06/22/2022 Diagnostic Pulmonary Medicine Rusty Vee M.D. [address] [place] [phone] 06/22/2022 Appointment Radiology Rusty Vee M.D. [address] [place] [phone] 06/23/2022 Clinical Communication Admitting/Central Scheduling 06/28/2022 Appointment Pulmonary Medicine Rusty Vee M.D. [address] [place] [phone] 06/28/2022 Appointment Pulmonary Medicine Rusty Vee M.D. [address] [place] [phone] documented as of this encounter Visit Diagnoses Not on filedocumented in this encounter
--- OUTSIDE RECORDS SUMMARY | 2022-05-25 21:09 | XMS_ITS | Encounter Summary ---
:1975 Author Organization [facility] Address [address] [place] [id number] Care Team Providers Name Role Phone Unavailable Primary Care Provider Unavailable Encounter Details Date Type Department Care Team Description 06/13/2014 Hospital Encounter HX [facility] Marsha Garibay M.D. [address] [place], [place] [address] (Wo rk) Social History [...] at Date Recorded Female 05/03/2022 7:07 PM FORMER HAND documented as of this encounter Last Filed Vital Signs Vital Sign Reading Time Taken Comments Blood Pressure - - Pulse - - Temperature - - Respiratory Rate - - Oxygen Saturation - - Inhaled Oxygen Concentration - - Weight - - Height 157 cm (5' 1.81) 06/13/2014 8:37 AM FORMER HAND Body Mass Index - - documented in this encounter Medications at Time of Discharge Medication Sig Dispensed Refills Start Date End Date multivitamin tablet Take 2 tablets by 0 3 mouth daily. FLUORIDE, SODIUM, Apply 1 application 0 3 12/31/2019 DENTAL topically 2 (two) times a day. documented as of this encounter Miscellaneous Notes Miscellaneous - Deann Odell R.Ph. - 06/14/2014 9:17 AM CST Anticoagulation Patient Intake Anticoagulation Patient Intake Entered On: 06/14/2014 9:19 FORMER HAND Performed On: 06/14/2014 9:17 FORMER HAND by DEANN ODELL [facility] Plan INR goal range : 2.0 - 3.0 Duration of Therapy : Lifelong Tablet Size : 5 mg DEANN ODELL [facility] - 06/14/2014 9:17 FORMER HAND Anticoagulation Management Plan Grid Date : 09/05/2013 [...] weeks Two weeks Plan completed by : DEANN Ramires [facility] - 06/14/2014 9:17 FORMER HAND DEANN ODELL [facility] - 06/14/2014 9:17 FORMER HAND DEANN ODELL [facility] - 06/14/2014 9:17 FORMER HAND DEANN ODELL [facility] - 06/14/2014 9:17 FORMER HAND Date : 12/26/2013 CDT 01/30/2014 CDT 03/06/2014 [...] Plan completed by : PATRICE lackey NB DEANN ODELL [facility] - 06/14/2014 9:17 FORMER HAND CASS, DEANN R [facility] - 06/14/2014 9:17 FORMER HAND CASS, DEANN R [facility] - 06/14/2014 9:17 FORMER HAND CASS, DEANN R [facility] - 06/14/2014 9:17 FORMER HAND Date : 03/20/2014 CDT 03/27/2014 CDT 04/10/2014 [...] completed by : darya lackey LM /pharmacy DEANN ODELL R [facility] - 06/14/2014 9:17 FORMER HAND DEANN ODELL R [facility] - 06/14/2014 9:17 FORMER HAND DEANN ODELL R [facility] - 06/14/2014 9:17 FORMER HAND DEANN ODELL R [facility] - 06/14/2014 9:17 FORMER HAND Date : 04/17/2014 CDT 04/24/2014 CDT 05/01/2014 FORMER HAND 05/15/2014 FORMER HAND Location of INR sample : Lab [...] will trynoted dose called to mom Fabiola [phone] called to Fabiola/no changes Called to mother/Fabiola, not awareof any changes Recommend Recheck : One week One week Two weeks Two weeks Plan completed by : MARIA GUADALUPE PRECIADO DEANN ODELL R [facility] - 06/14/2014 9:17 [facility] DEANN ODELL R [facility] - 06/14/2014 9:17 [facility] DEANN ODELL R [facility] - 06/14/2014 9:17 [facility] DEANN ODELL R [facility] - 06/14/2014 9:17 FORMER HAND Date : 06/03/2014 FORMER HAND 06/05/2014 FORMER HAND 06/10/2014 FORMER HAND 06/11/2014 FORMER HAND Location of INR sample : Lab [...] Called motherFabiola. Hue will be staying in [place] 2wks post-surgery & have INR drawn there. [...] lovenox tomorrow AM as ordered. INR in [place] for next several weeks as pt will be recovering there. Recommend Recheck : Other: depending on Dr. Garibay's preop. Other: 06/18 Other: 06/13/14 Plan completed by : DEANN MCINTOSH [facility] - 06/14/2014 9:17 [facility] DEANN ODELL [facility] - 06/14/2014 9:17 FORMER HAND DEANN ODELL [facility] - 06/14/2014 9:17 [facility] DEANN ODELL [facility] - 06/14/2014 9:17 FORMER HAND Date : 06/14/2014 FORMER HAND 06/14/2014 FORMER HAND Location of INR sample : Clinic Type of Sample : INR Result : 1.3 on 06/13 Warfarin Dose : (pt took 2.5mg 06/13) 5mg Sat and 5mg Sun (06/14 and 06/15) Total Weekly Warfarin Dose : Comment : [facility] lab called with INR result from 06/13, reported they left a message with Dr. Garibay and hadn't heard back, spoke with motherFabiola, and gave doses, continue Lovenox and repeat INR 06/16, message left with INR clinic in [place] to contact CF Please contact [facility] lab on 06/16 for result and may call Fabiola at [phone] with instructions Recommend Recheck : Two days Plan completed by : DEANN Lemus [facility] - 06/14/2014 9:17 FORMER HAND DEANN ODELL [facility] - 06/14/2014 9:17 FORMER HAND Source: [facility] [employer] Document Id: [id number] FORMER HAND!199 ER HAND Miscellaneous - Deann Odell, R.Ph. - 06/14/2014 9:09 AM CST Anticoagulation Patient Intake Anticoagulation Patient Intake Entered On: 06/14/2014 9:15 FORMER HAND Performed On: 06/14/2014 9:09 FORMER HAND by DEANN ODELL [facility] Plan INR goal range : 2.0 - 3.0 Duration of Therapy : Lifelong Tablet Size : 5 mg DEANN ODELL [facility] - 06/14/2014 9:09 FORMER HAND Anticoagulation Management Plan Grid Date : 09/05/2013 [...] weeks Two weeks Plan completed by : DEANN Ramires [facility] - 06/14/2014 9:09 FORMER HAND DEANN ODELL [facility] - 06/14/2014 9:09 FORMER HAND DEANN ODELL [facility] - 06/14/2014 9:09 [facility] DEANN ODELL [facility] - 06/14/2014 9:09 FORMER HAND Date : 12/26/2013 CDT 01/30/2014 CDT 03/06/2014 [...] completed by : PATRICE lackey DEANN ODELL [facility] - 06/14/2014 9:09 [facility] DEANN ODELL [facility] - 06/14/2014 9:09 [facility] DEANN ODELL [facility] - 06/14/2014 9:09 [facility] DEANN ODELL [facility] - 06/14/2014 9:09 FORMER HAND Date : 03/20/2014 CDT 03/27/2014 CDT 04/10/2014 [...] completed by : darya lackey LM /pharmacy CASS, DEANN R [facility] - 06/14/2014 9:09 FORMER HAND CASS, DEANN R [facility] - 06/14/2014 9:09 FORMER HAND CASS, DEANN R [facility] - 06/14/2014 9:09 FORMER HAND CASS, DEANN R [facility] - 06/14/2014 9:09 FORMER HAND Date : 04/17/2014 CDT 04/24/2014 CDT 05/01/2014 FORMER HAND 05/15/2014 FORMER HAND Location of INR sample : Lab [...] will trynoted dose called to mom Fabiola [phone] called to Fabiola/no changes Called to mother/Fabiola, not awareof any changes Recommend Recheck : One week One week Two weeks Two weeks Plan completed by : MARIA GUADALUPE ODELL, DEANN R [facility] - 06/14/2014 9:09 FORMER HAND CASS, DEANN R [facility] - 06/14/2014 9:09 FORMER HAND CASS, DEANN R [facility] - 06/14/2014 9:09 FORMER HAND CASS, DEANN R [facility] - 06/14/2014 9:09 FORMER HAND Date : 06/03/2014 FORMER HAND 06/05/2014 FORMER HAND 06/10/2014 FORMER HAND 06/11/2014 FORMER HAND Location of INR sample : Lab Type of Sample : Venous INR Result : 2.1(12/4) Warfarin Dose : 5mg Mon and 2.5mg [...] Fabiola granados. Hue will be staying in [place] 2wks post-surgery & have INR drawn there. [...] lovenox tomorrow AM as ordered. INR in [place] for next several weeks as pt will be recovering there. Recommend Recheck : Other: depending on Dr. Garibay's preop. Other: 06/18 Other: 06/13/14 Plan completed by : DEANN MCINTOSH [facility] - 06/14/2014 9:09 [facility] DEANN ODELL [facility] - 06/14/2014 9:09 FORMER HAND DEANN ODELL [facility] - 06/14/2014 9:09 [facility] DEANN ODELL [facility] - 06/14/2014 9:09 FORMER HAND Date : 06/14/2014 FORMER HAND Location of INR sample : Clinic Type of Sample : INR Result : 1.3 on 06/13 Warfarin Dose : (pt took 2.5mg 06/13) 5mg Sat and 5mg Sun (06/14 and 06/15) Total Weekly Warfarin Dose : Comment : [place] lab called with INR result from 06/13, reported they left a message with Dr. Garibay and hadn't heard back, spoke with mother, Fabiola, and gave doses, continue Lovenox and repeat INR 06/16, message left with INR clinic in [place] to contact CF (Comment: please call Fabiola's cell phone with result and plan, [DEANN ODELL [facility] - 06/14/2014 9:09 FORMER HAND] ) Recommend Recheck : Two days Plan completed by : DEANN Lemus [facility] - 06/14/2014 9:09 FORMER HAND Source: [facility] [employer] Document Id: [id number] FORMER HAND!196 ER HAND documented in this encounter Plan of Treatment Upcoming Encounters Date Type Specialty Care Team Description 06/22/2022 Appointment Laboratory Medicine Rusty Vee M.D. [address] [place] [phone] 06/22/2022 Diagnostic Pulmonary Medicine Rusty Vee M.D. [address] [place] [phone] 06/22/2022 Diagnostic Pulmonary Medicine Rusty Vee M.D. [address] [place] [phone] 06/22/2022 Appointment Radiology Rusty Vee M.D. [address] [place] [phone] 06/23/2022 Clinical Communication Admitting/Central Scheduling 06/28/2022 Appointment Pulmonary Medicine Rusty Vee M.D. [address] [place] [phone] 06/28/2022 Appointment Pulmonary Medicine Rusty Vee M.D. [address] [place] [phone] documented as of this encounter Procedures Procedure Name Priority Date/Time Associated Comments Diagnosis PROTHROMBIN TIME Routine 06/13/2014 8:43 AM Resul ts for this (PT), P FORMER HAND procedure are i n the results section. documented in this encounter Results (ABNORMAL) PT (Prothrombin Time) with INR (06/13/2014 8:43 AM FORMER HAND) [facility] gist Method Time Signature INR 1.30 (H) 0.90 - 1.16 POWERCHART Prothrombin 13.8 (H) 8.7 - 11.8 POWERCHART Time, P SECONDS Specimen (Source) Anatomical Collection Method Collection Time Re ceived Time Location / / Volume Laterality Blood 06/13/2014 8:43 AM FORMER HAND Sridhar Garibay M.D. LAB BLOOD ADD-ON Performing Organization Address City/State/ZIP Code Phon e Number POWERCHART documented in this encounter Visit Diagnoses Not on filedocumented in this encounter
--- OUTSIDE RECORDS SUMMARY | 2022-05-25 21:09 | XMS_ITS | Encounter Summary ---
:1975 Author Organization [facility] Address [address] [place] [id number] Care Team Providers Name Role Phone Unavailable Primary Care Provider Unavailable Encounter Details Date Type Department Care Team Description 07/17/2014 Hospital Encounter HX [facility] Marsha Henriquez M.D. [address] [place], [place] [address] (Wo rk) Social History [...] at Date Recorded Female 05/03/2022 7:07 PM CELLOPHANE WORKER documented as of this encounter Last Filed Vital Signs Vital Sign Reading Time Taken Comments Blood Pressure - - Pulse - - Temperature - - Respiratory Rate - - Oxygen Saturation - - Inhaled Oxygen Concentration - - Weight - - Height 157 cm (5' 1.81) 07/17/2014 5:21 AM CELLOPHANE WORKER Body Mass Index - - documented in this encounter Medications at Time of Discharge Medication Sig Dispensed Refills Start Date End Date multivitamin tablet Take 2 tablets by 0 3 mouth daily. FLUORIDE, SODIUM, Apply 1 application 0 3 12/31/2019 DENTAL topically 2 (two) times a day. documented as of this encounter Miscellaneous Notes Miscellaneous - Wali Zapata R.N. - 07/17/2014 10:11 AM CST Anticoagulation Patient Intake Anticoagulation Patient Intake Entered On: 07/17/2014 10:17 CELLOPHANE WORKER Performed On: 07/17/2014 10:11 CELLOPHANE WORKER by WALI ZAPATA RN Plan INR goal range : 2.0 - 3.0 Duration of Therapy : Lifelong Tablet Size : 5 mg WALI ZAPATA RN - 07/17/2014 10:11 CELLOPHANE WORKER Anticoagulation Management Plan Grid Date : [...] JM WALI Cortez RN - 07/17/2014 10:11 CELLOPHANE WORKER WALI ZAPATA RN - 07/17/2014 10:11 WALI HARDWICK RN - 07/17/2014 10:11 WALI HARDWICK RN - 07/17/2014 10:11 CELLOPHANE WORKER Date : 12/26/2013 CDT 01/30/2014 CDT [...] a long time, no bleeding now left [facility]iola,call if changes Recommend Recheck : Other: 5 weeks Other: 5 weeks Other: 03/10/2014 Other: 03/20/14 Plan completed by : WALI Chau RN - 07/17/2014 10:11 CELLOPHANE WORKER WALI ZAPATA RN - 07/17/2014 10:11 WAIL HARDWICK RN - 07/17/2014 10:11 WALI HARDWICK RN - 07/17/2014 10:11 CELLOPHANE WORKER Date : 03/20/2014 CDT 03/27/2014 CDT [...] lackey LM /pharmacy WALI ZAPATA RN - 07/17/2014 10:11 CELLOPHANE WORKER WALI ZAPATA RN - 07/17/2014 10:11 CELLOPHANE WORKER WALI ZAPATA RN - 07/17/2014 10:11 WALI HARDWICK RN - 07/17/2014 10:11 CELLOPHANE WORKER Date : 04/17/2014 CDT 04/24/2014 CDT 05/01/2014 CELLOPHANE WORKER 05/15/2014 CELLOPHANE WORKER Location of INR sample : Lab [...] will trynoted dose called to mom Fabiola [phone] called to Fabiola/no changes Called to mother/Fabiola, not awareof any changes Recommend Recheck : One week One week Two weeks Two weeks Plan completed by : WALI DAVISON RN - 07/17/2014 10:11 WALI HARDWICK RN - 07/17/2014 10:11 WALI HARDWICK RN - 07/17/2014 10:11 WALI HARDWICK RN - 07/17/2014 10:11 CELLOPHANE WORKER Date : 06/03/2014 CELLOPHANE WORKER 06/05/2014 CELLOPHANE WORKER 06/10/2014 CELLOPHANE WORKER 06/11/2014 CELLOPHANE WORKER Location of INR sample : Lab [...] Fabiola granados. Hue will be staying in [place] 2wks post-surgery & have INR drawn there. [...] lovenox tomorrow AM as ordered. INR in [place] for next several weeks as pt will be recovering there. Recommend Recheck : Other: depending on Dr. Henriquez's preop. Other: 06/18 Other: 06/13/14 Plan completed by : WALI FONTAINE RN - 07/17/2014 10:11 WALI HARDWICK RN - 07/17/2014 10:11 WALI HARDWICK RN - 07/17/2014 10:11 WALI HARDWICK RN - 07/17/2014 10:11 CELLOPHANE WORKER Date : 06/14/2014 CELLOPHANE WORKER 06/14/2014 CELLOPHANE WORKER 06/16/2014 CELLOPHANE WORKER 06/23/2014 CELLOPHANE WORKER Location of INR sample : Clinic [...] Warfarin Dose : 20 20 Comment : [place] lab called with INR result from 06/13, reported they left a message with Dr. Henriquez and hadn't heard back, spoke with Fabiola granados, and gave doses, continue Lovenox and repeat INR 06/16, message left with INR clinic in [place] to contact [facility] Please contact [facility] on 06/16 for result and may call Fabiola at [phone] with instructions call to Fabiola/will stop Lovenox [...] WALI Senior LM, RN - 07/17/2014 10:11 CELLOPHANE WORKER WALI ZAPATA RN - 07/17/2014 10:11 CELLOPHANE WORKER WALI ZAPATA RN - 07/17/2014 10:11 CELLOPHANE WORKER WALI ZAPATA RN - 07/17/2014 10:11 CELLOPHANE WORKER Date : 07/10/2014 CELLOPHANE WORKER 07/17/2014 CELLOPHANE WORKER Location of INR sample : Lab [...] Two weeks Plan completed by : WALI Pearson RN - 07/17/2014 10:11 CELLOPHANE WORKER WALI ZAPATA RN - 07/17/2014 10:11 CELLOPHANE WORKER Anticoagulation Assessment / History Visit : Phone management Plan of Care Date : 01/29/2008 CDT Primary Physician Anticoagulation : TASHA HENRIQUEZ MD 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 - 07/17/2014 9:58 AM CST Results Notification Document Contains Addenda Addendum by WALI ZAPATA RN on 17 July 2014 10:18:29 CELLOPHANE WORKER Orders called to mom/Fabiola. From: KHADAR BANDA RN ( Anticoagulation Nurse) To: Anticoagulation Nurse; Sent: 07/17/2014 09:58:16 CELLOPHANE WORKER Show up: 07/17/2014 09:59:00 CELLOPHANE WORKER Subject: Results Notification Results: Date Result Name Value Ref Range 07/17/2014 08:10 PT 24.2 second(s) 07/17/2014 08:10 INR 2.2 INR (0.8 - 1.1) Source: [facility] POWERCHART Document Id: [id number] documented in this encounter Plan of Treatment Upcoming Encounters Date Type Specialty Care Team Description 06/22/2022 Appointment Laboratory Medicine Rusty Vee M.D. [address] [place] [address] [phone] 06/22/2022 Diagnostic Pulmonary Medicine Rusty Vee M.D. [address] [place] [phone] 06/22/2022 Diagnostic Pulmonary Medicine Rusty Vee M.D. [address] [place] [phone] 06/22/2022 Appointment Radiology Rusty Vee M.D. [address] [place] [address] [phone] 06/23/2022 Clinical Communication Admitting/Central Scheduling 06/28/2022 Appointment Pulmonary Medicine Rusty Vee M.D. [address] [place] [phone] 06/28/2022 Appointment Pulmonary Medicine Rusty Vee M.D. [address] [place] [phone] documented as of this encounter Procedures Procedure Name Priority Date/Time Associated Comments Diagnosis PROTHROMBIN TIME Routine 07/17/2014 8:10 AM Resul ts for this (PT), P CELLOPHANE WORKER procedure are i n the results section. documented in this encounter Results (ABNORMAL) PT (Prothrombin Time) with INR (07/17/2014 8:10 AM CELLOPHANE WORKER) [facility] Method Time Signature Prothrombin 24.2 SECONDS POWERCHART [...] / Volume Laterality Blood 07/17/2014 8:10 AM CELLOPHANE WORKER Tasha Henriquez M.D. LAB BLOOD ADD-ON Performing Organization Address City/State/ZIP Code Phon e Number POWERCHART documented in this encounter Visit Diagnoses Not on filedocumented in this encounter
--- OUTSIDE RECORDS SUMMARY | 2022-05-25 21:09 | XMS_ITS | Encounter Summary ---
:1975 Author Organization [facility] Address [address] [place] [id number] Care Team Providers Name Role Phone Unavailable Primary Care Provider Unavailable Encounter Details Date Type Department Care Team Description 06/11/2014 Hospital Encounter HX NO MAPPING Jayden Heard M.D. [address] [place], [place] [phone] (Wo rk) Social History [...] at Date Recorded Female 05/03/2022 7:07 PM OVERHEAD DOOR TECHNICIAN documented as of this encounter Last Filed Vital Signs Vital Sign Reading Time Taken Comments Blood Pressure 102/66 06/11/2014 1:00 PM OVERHEAD DOOR TECHNICIAN Pulse 66 06/11/2014 6:40 AM OVERHEAD DOOR TECHNICIAN Temperature - - Respiratory Rate 18 06/11/2014 9:30 AM OVERHEAD DOOR TECHNICIAN Oxygen Saturation - - Inhaled Oxygen Concentration - - Weight 81 kg (178 lb 9.2 oz) 06/11/2014 6:40 AM OVERHEAD DOOR TECHNICIAN Height 157 cm (5' 1.81) 06/11/2014 1:30 PM OVERHEAD DOOR TECHNICIAN Body Mass Index 32.86 06/11/2014 6:40 AM OVERHEAD DOOR TECHNICIAN documented in this encounter Discharge Summaries Mari Mohr R.N. - 06/11/2014 1:44 PM CST Hospital Discharge Instructions [facility] [address] [place] [address] Patient Discharge Instructions Name: DORITA SHEFFIELD Current Date: 06/11/2014 13:44:20 : 1975 12:00 AM [facility] Number: [id number] Patient Address: [address] [facility] [address] [facility] [phone] Patient Primary Care Provider: Name: TASHA HENRIQUEZ MD Discharge Diagnosis: [facility] would like to thank you for allowing [...] Appointments Date Time Location Provider 06/13/2014 08:30 [facility] 06/13/2014 08:30 [facility] 06/23/2014 08:45 [facility] Kati TSANG, NETTIE Luong CAROLYN MARY , have received the attached patient education materials/instructions and have verbalized understanding: Patient Signature Date Time Care Provider Signature Date Time Source: [facility] POWERCHART Document Id: [id number] HEAD DOOR TECHNICIAN Mari Mohr R.N. - 06/11/2014 1:44 PM CST Hospital Discharge Medication List [facility] [address] [place] [address] Discharge Medication List Name: DORITA SHEFFIELD Current Date: 06/11/2014 13:44:18 : 1975 12:00 AM [facility] Number: [id number] Patient Address: [address] [facility] [phone] Patient Primary Care Provider: Name: TASHA HENRIQUEZ MD Discharge Diagnosis: [employer] in [place] would like to thank you for allowing [...] SUSAN HEARD MD Signed On:11-JUN-2014 08:59:39 Source: [facility] POWERCHART Document Id: [id number] HEAD DOOR TECHNICIAN Mari Mohr R.N. - 06/11/2014 1:43 PM CST Discharge Summary Discharge Summary Entered On: 06/11/2014 13:44 OVERHEAD DOOR TECHNICIAN Performed On: 06/11/2014 13:43 OVERHEAD DOOR TECHNICIAN by MARI MOHR RN MD Information Discharged to : Home with family care Current Home Treatments : None Home Equipment : None Professional Skilled Services : None Special Services and Community Resources : None Mode of Discharge : Ambulatory Discharge Transportation : Private vehicle Accompanied By : Nurse, Family Date/Time of Discharge : 06/11/2014 13:31 OVERHEAD DOOR TECHNICIAN MARI MOHR RN - 06/11/2014 13:43 OVERHEAD DOOR TECHNICIAN Education General Patient Education Powergrid Topics : Discharge instructions/Medication list Individuals Taught : Patient, Parent Barriers to Learning : None evident Teaching Method : Explanation, Printed materials Teaching Evaluation : Verbalizes understanding MARI MOHR RN - 06/11/2014 13:43 OVERHEAD DOOR TECHNICIAN Valuables/Belongings Valuables/Belongings Grid Valuables at Bedside Clothes, Patient Valuables : Pants, Shirt, Shoes MARI MOHR RN - 06/11/2014 13:43 OVERHEAD DOOR TECHNICIAN Source: [facility] POWERCHART Document Id: [id number] OVERHEAD DOOR TECHNICIAN!23 HEAD DOOR TECHNICIAN documented in this encounter Medications at Time of Discharge Medication Sig Dispensed Refills Start Date End Date multivitamin tablet Take 2 tablets by 0 3 mouth daily. FLUORIDE, SODIUM, Apply 1 application 0 3 12/31/2019 DENTAL topically 2 (two) times a day. documented as of this encounter Procedure Notes Mari Mohr R.N. - 06/11/2014 7:02 AM CST Peripheral IV Peripheral IV Entered On: 06/11/2014 7:02 OVERHEAD DOOR TECHNICIAN Performed On: 06/11/2014 7:02 OVERHEAD DOOR TECHNICIAN by MARI MOHR RN Peripheral IV Peripheral IV Assess/Intervention Grid Peripheral IV #1 IV Activity : Start Number of Attempts : 1 Date of Insertion : 06/11/2014 OVERHEAD DOOR TECHNICIAN IV Site : Hand Laterality : Right Catheter Size : 20 Catheter Type : Protective Site Condition : No complications Flow/ Patency : No complications MARI MOHR RN - 06/11/2014 7:02 OVERHEAD DOOR TECHNICIAN Source: [employer] Document Id: [id number] OVERHEAD DOOR TECHNICIAN!13 HEAD DOOR TECHNICIAN Mari Mohr R.N. - 06/11/2014 6:40 AM CST Preprocedure Checklist Document Has Been Updated Preprocedure Checklist Entered On: 06/11/2014 6:46 OVERHEAD DOOR TECHNICIAN Performed On: 06/11/2014 6:40 OVERHEAD DOOR TECHNICIAN by MARI MOHR RN Checklist Last Fluid Intake : 06/11/2014 5:30 OVERHEAD DOOR TECHNICIAN Last Food Intake : 06/10/2014 18:00 OVERHEAD DOOR TECHNICIAN Status : Patient denies MARI MOHR RN - 06/11/2014 6:40 OVERHEAD DOOR TECHNICIAN Surgery Prep Grid Contacts/Glasses Removed : NA Dentures Removed : NA Hairpins/Hairpiecies Removed : NA Hearing Aid Removed : NA Home Prep Complete : Yes Jewelry/Piercing Removed : Yes Makeup/Nail Micronesian Removed : NA Oral Hygiene : NA Preop Scrub AM of Surgery : NA Preop Scrub Night Prior to Surgery : NA Prosthesis Removed : NA Surgical Prep Verified : NA Tampon Removed : NA Wearing Patient Gown : Yes Voided telecommunication engineer to procedure : Yes MARI MOHR RN - 06/11/2014 6:40 OVERHEAD DOOR TECHNICIAN Surgical Preparation : N/A MARI MOHR RN - 06/11/2014 6:40 OVERHEAD DOOR TECHNICIAN Patient Rights Grid Blood Consent Signed : Yes Surgical/Procedure Consent Signed : Yes MARI MOHR RN - 06/11/2014 6:40 OVERHEAD DOOR TECHNICIAN Family Location : [place] MARI MOHR RN - 06/11/2014 6:40 OVERHEAD DOOR TECHNICIAN Checklist II Patient Safety Grid Allergy Band [...] Type & Screen/Type & Cross Completed : MARI MEDINA RN - 06/11/2014 6:40 OVERHEAD DOOR TECHNICIAN ANGY Screening Known Obstructive Sleep Apnea : No - NOT diagnosed with ANGY MARI MOHR RN - 06/11/2014 6:40 OVERHEAD DOOR TECHNICIAN ANGY Assessment Do you have high blood [...] 3 MARI MOHR RN - 06/11/2014 6:40 OVERHEAD DOOR TECHNICIAN Valuables/Belongings Valuables/Belongings Grid Valuables at Bedside Clothes, Patient Valuables : Pants, Shirt, Shoes MARI MOHR RN - 06/11/2014 6:40 OVERHEAD DOOR TECHNICIAN Education Preprocedure Education Grid Procedure Type : lap brianna Individuals Taught : Parent Barriers to Learning : None evident Teaching Method : Explanation Teaching Evaluation : Verbalizes understanding MARI MOHR RN - 06/11/2014 6:40 OVERHEAD DOOR TECHNICIAN Advance Directive Advanced Directives : No Advance Directive Additional Information : No MARI MOHR RN - 06/11/2014 6:40 OVERHEAD DOOR TECHNICIAN Vital Signs Actual Weight : 81 kg Actual Weight Conversion to Pounds : 178.2 lb Body Mass Index : 32.86 kg/m2 MARI MOHR RN - 06/11/2014 7:05 OVERHEAD DOOR TECHNICIAN Temperature Core : 36.7 DegC(Converted to: 98.1 [...] inch(es)) MARI MOHR RN - 06/11/2014 6:40 OVERHEAD DOOR TECHNICIAN Allergy (As Of: 06/11/2014 06:46:28 OVERHEAD DOOR TECHNICIAN) Allergies (Active) Bee Stings Comments: Comment 1: BEES ; Created By: [employer]_LASHONDA; Reaction Status: Active ; Category: Environment ; Substance: Bee Stings ; Type: Unknown ; Updated By: [employer] InteractivesystemAYDEPOOJA; Reviewed Date: 06/10/2014 16:03 OVERHEAD DOOR TECHNICIAN chloramphenicol containing compounds Comments: Comment 1: CHLORAMPHENICOL ; Created By: [employer] InteractivesystemMISTI; Reaction Status: Active ; Category: Drug ; Substance: chloramphenicol containing compounds ; Type: Unknown ; Updated By: [employer] InteractivesystemMISTI; Reviewed Date: 06/10/2014 16:03 OVERHEAD DOOR TECHNICIAN quinolone antibiotics Comments: Comment 1: QUINOLONES - ciloxan eye tts ; Created By: Bib + TucksystemMISTI; Reaction Status: Active ; Category: Drug ; Substance: quinolone antibiotics ;Type: Unknown ; Updated By: [employer] InteractivesystemAYDEPOOJA; Reviewed Date: 06/10/2014 16:03 OVERHEAD DOOR TECHNICIAN Source: [facility] POWERCHART Document Id: [id number] OVERHEAD DOOR TECHNICIAN!5 HEAD DOOR TECHNICIAN documented in this encounter Nursing Notes Mari Mohr R.N. - 06/11/2014 11:02 AM CST PRN Response PRN Response Entered On: 06/11/2014 11:30 OVERHEAD DOOR TECHNICIAN Performed On: 06/11/2014 11:02 OVERHEAD DOOR TECHNICIAN by NIKKY, MARI R RN PRN Medication Effectiveness Evaluation PRN Medication Effective : Yes Post Medication Pain Assessment : 4 MARI MOHR RN - 06/11/2014 11:30 OVERHEAD DOOR TECHNICIAN Source: [facility] [employer] Document Id: [id number] OVERHEAD DOOR TECHNICIAN!4 HEAD DOOR TECHNICIAN Conversion, Historical Provider Ser - 06/11/2014 9:04 AM CST [facility] Main OR Nursing Record [facility] Main OR Nursing Record Summary Primary Physician: SUSAN HEARD MD Finalized Date/Time: 06/11/14 15:43:45 Pt. Name: DORITA SHEFFIELD SANTOSH WhartonB./Sex: 1975 Female Med Rec #: [id number] Physician: Financial #: [id number] Pt. Type: D Room/Bed: 02/24 Admit/Disch: 06/11/14 [...] ANNA GARG RN 06/11/14 09:34:28 Case Attendance [facility] Entry 1 Entry 2 Entry 3 Case Attendee SUSAN HEARD MD, ALISON RN ANNA GARG RN Role Performed Surgeon, Primary Scrub, First RN Liberal Arts And Humanities Chair, Primary - Orientee Time In 06/11/14 07:49:00 06/11/14 07:49:00 06/11/14 07:49:00 Time Out 06/11/14 09:28:00 06/11/14 09:28:00 06/11/14 09:28:00 Relief? No No No See Anesthesia Record for Additional Attendees and Relief Times Last Modified By: ANNA GARG RN ANNA GARG RN ANNA GARG RN 06/11/14 09:34:33 06/11/14 09:34:33 06/11/14 09:34:33 Entry 4 Entry 5 Entry 6 Case Attendee MAGGIE AVILA LINDA CRNA FRANKLIN, BARBARA L LPN Role Performed RN Liberal Arts And Humanities Chair - Primary Certified Registered Surgeon, Assist Nurse Internet Assessor Time In 06/11/14 07:49:00 06/11/14 07:49:00 06/11/14 07:49:00 Time Out 06/11/14 09:28:00 06/11/14 09:28:00 06/11/14 09:28:00 Relief? No No No See Anesthesia Record for Additional Attendees and Relief Times Last Modified By: ANNA GARG RN ANNA GARG RN ANNA GARG RN 06/11/14 09:34:33 06/11/14 09:34:33 06/11/14 09:34:33 Entry 7 Entry 8 Case Attendee CHUCK LOVE CRNA, KIMBERLY RN Role Performed Certified Registered Liberal Arts And Humanities Chair, Other Nurse Internet Assessor Time In 06/11/14 07:49:00 06/11/14 07:49:00 Time Out 06/11/14 09:28:00 06/11/14 09:28:00 Relief? No No See Anesthesia Record for Additional Attendees and Relief Times Last Modified By: ANNA GARG RN ANNA GARG RN 06/11/14 09:34:33 06/11/14 09:34:33 Surgical Procedures [facility] Entry 1 Procedure Cholecystectomy Modifiers None Laparoscopic Procedure Performed Laparoscopic Primary Procedure Yes (Primary Procedure cholecystectomy Surgeon Comment) Primary Surgeon SUSAN HEARD MD Surgical Service SN - General Start 06/11/14 08:16:00 Stop 06/11/14 09:04:00 Anesthesia Type General Anesthesia Type Yes Verified Last Modified By: ANNA GARG RN 06/11/14 09:12:04 General Case Data [facility] Entry 1 Case Information OR [facility] OR 04 Case Level Level 3 Wound [...] Prep Agents Chloroprep Flammable Prep Yes By MAGGIE AVILA Agents Allowed to Dry? Hair Removal Methods N/A Diagnosis X28 Infection, risk for Interventions I081 Initiates traffic control., I098 Protects from cross-contamination., Prep performed consistent with aseptic principles and surgeon preference Expected Outcomes Surgery performed using Outcomes Met Yes aseptic technique, preventing cross contamination Last Modified By: ANNA AGRG RN 06/11/14 08:35:44 Cautery Entry 1 CauteryType [facility] I.D. Number [id number] Coag Setting 30 Cut Setting 0 Grounding [...] Count Sponges Count Yes Yes Yes Correct? [place] Yes Yes Yes Count Correct? Instrument Count Yes Yes n/a Correct? By LEONEL GU RN, LEONEL GU RN, MAGGIE AVILA, KRECH, JUERS, ANNA MEEKS RN, RN, RN Actions Taken Surgeon notified of Surgeon [...] Unfinalizing Freetext Reason for Unfinalizing 06/11/14 15:42 [id number] Modify Pick List add codes Source: [facility] POWERCHART Document Id: [id number] Mari Mohr RMichaelN. - 06/11/2014 6:36 AM CST Day Surgery Admission History/Asmt Adult Document Has Been Updated Day Surgery Admission History/Asmt Adult Entered On: 06/11/2014 6:40 OVERHEAD DOOR TECHNICIAN Performed On: 06/11/2014 6:36 OVERHEAD DOOR TECHNICIAN by MARI MOHR RN General Info Are you ? : No MARI MOHR RN - 06/11/2014 6:40 OVERHEAD DOOR TECHNICIAN Preferred Name : Jade Admitted From : Non-Health Care Facility Point of Origin Mode of Arrival : Ambulatory Accompanied By : Father, Mother Chief Complaint : Lap brianna Preferred Communication Mode : Verbal Information Given By : Patient, Father, Mother Languages : Macanese Is Patient Female and 13-50 no hysterectomy : Yes Status : Patient denies MARI MOHR RN - 06/11/2014 6:36 OVERHEAD DOOR TECHNICIAN ID Screen Travel Within Last 21 Days : No MARI MOHR RN 06/11/2014 6:36 OVERHEAD DOOR TECHNICIAN Nutrition Nutrition Risk Factors by History Adult : None Home Diet : Regular Feeding Ability : Complete independence Appetite : Excellent MARI MOHR RN 06/11/2014 6:36 OVERHEAD DOOR TECHNICIAN Home Environment Current Daily Living Assistance : None MARI MOHR RN 06/11/2014 6:36 OVERHEAD DOOR TECHNICIAN Dependent Habits Tobacco Use/Currently Using : No Exposure to Tobacco Smoke : Other: never smoker Smoking Status : Never smoker Alcohol Use : Yes MARI MOHR RN 06/11/2014 6:36 OVERHEAD DOOR TECHNICIAN AUDIT Tool How Often Do You Have A Drink : Monthly or less How Many Drinks in a Day When Drinking : 1 or 2 Six or More Drinks On One Occassion : Never Audit Phase 1 Score : 1 MARI MOHR RN - 06/11/2014 6:36 OVERHEAD DOOR TECHNICIAN Psychosocial Adult Domestic Abuse Concerns : None Baptism Preference : No qualifying data available. MARI MOHR RN - 06/11/2014 6:36 OVERHEAD DOOR TECHNICIAN Advance Directive Advanced Directives : No Advance Directive Additional Information : No MARI MOHR RN 06/11/2014 6:36 OVERHEAD DOOR TECHNICIAN Educ Needs Patient/Family Education Needs : Preoperative instructions MARI MOHR RN - 06/11/2014 6:36 OVERHEAD DOOR TECHNICIAN Learning Style Preference Adult Grid Patient : Verbal explanation Family : Verbal explanation MARI MOHR RN 06/11/2014 6:36 OVERHEAD DOOR TECHNICIAN Outpatient Assessment Procedural Respiratory : Respirations unlabored Procedural Neurological : Alert Procedural Genitourinary : Voiding, no difficulties Procedural Integumentary : Skin integrity intact Procedural Musculoskeletal : Activity tolerance without distress MARI MOHR RN 06/11/2014 6:36 OVERHEAD DOOR TECHNICIAN Psycho/Emotional Pain Symptoms : No MARI MOHR RN 06/11/2014 6:36 OVERHEAD DOOR TECHNICIAN Mando Sensory Perception Mando : No impairment Moisture Mando : Rarely moist Activity Mando : Walks frequently Mobility Mando : No limitations Nutrition Mando : Excellent Friction and Shear Mando : No apparent problem Mando Score : 23 MARI MOHR RN - 06/11/2014 6:36 OVERHEAD DOOR TECHNICIAN Hendrich II Fall Risk Confusion/Disorientation Hendrich : No Depression Fall Risk Hendrich : No Dizziness/Vertigo Fall Risk Hendrich : No Gender, Male Fall Risk Hendrich : No Prescribed Antiepileptics Hendrich : No Prescribed Benzodiazepines Hendrich : No Rising From Chair Fall Risk Hendrich : Unable to rise without assistance MARI MOHR RN - 06/11/2014 6:36 OVERHEAD DOOR TECHNICIAN Integumentary Skin Turgor : Elastic MARI MOHR RN - 06/11/2014 6:51 OVERHEAD DOOR TECHNICIAN Skin Integrity : Not intact (Comment: has psoriasis/ has a small piece of loose skin on dry lips/ a small pimple on right facialcheek; small little lesion under nose [MARI MOHR RN - 06/11/2014 7:03 OVERHEAD DOOR TECHNICIAN] ) MARI MOHR RN - 06/11/2014 7:03 OVERHEAD DOOR TECHNICIAN Mucous Membrane Color : [place] Mucous Membrane Description : Moist MARI MOHR RN - 06/11/2014 6:51 OVERHEAD DOOR TECHNICIAN Integumentary Patient Stated Symptoms : Other: psoriasis (on buttocks) Skin Color : Normal for ethnicity Skin Description : Dry Skin Temperature : Warm MARI MOHR RN - 06/11/2014 6:36 OVERHEAD DOOR TECHNICIAN Source: [employer] Document Id: [id number] OVERHEAD DOOR TECHNICIAN!3 HEAD DOOR TECHNICIAN documented in this encounter OR Notes Op Note - Chuck Love CRNA, R.N. - 06/11/2014 3:43 PM CST PATIENT LOCATION SDS POST OP CONTINUOUS NERVE BLOCK _ POST OP CONTINUOUS EPIDURAL _ COMPLICATIONS No Apparent Complications Electronically Signed By: CHUCK LOVE CRNA On: 06/11/2014 03:43 PM [facility] Document Id: [id number] HEAD DOOR TECHNICIAN Op Note - Susan Heard M.D. - 06/11/2014 9:00 AM CST BRIEF OPERATIVE NOTE Preoperative Diagnosis: Symptomatic cholelithiasis Postoperative Diagnosis: Symptomatic cholelithiasis Procedure: Laparoscopic cholecystectomy Surgeon: Susan Heard MD Jewel Blocker And Sawyer: Ashley Peralta LPN Anesthesia: General endotracheal anesthesia Wound Exploration Completed: Yes Findings: Gallstones in gallbladder neck. Critical view of safety obtained prior to ligation and division of cystic duct and cystic artery. Estimated Blood Loss: 10 mL Specimen: Gallbladder Drains: None Complications: None Electronically Signed By: SUSAN HEARD MD On: 06/11/2014 09:00 AM Source: [employer] Document Id: [id number] HEAD DOOR TECHNICIAN Op Note - Chuck Love CRNA, R.N. [...] LOVE CRNA On: 06/11/2014 07:31 AM Source: [employer] Document Id: [id number] HEAD DOOR TECHNICIAN Op Note - Susan Heard M.D. - 06/11/2014 12:00 AM CST [id number] PREOPERATIVE DIAGNOSIS Symptomatic cholelithiasis. POSTOPERATIVE DIAGNOSIS Symptomatic cholelithiasis. PROCEDURE PERFORMED Laparoscopic cholecystectomy. SURGEON Susan Heard MD SKEIN WINDING OPERATOR Ashley Peralta LPN ANESTHESIA General endotracheal anesthesia. [...] then removed and the fascia closed using Umer-Mary needle and 0 Vicryl suture. The remaining [...] mL. SPECIMENS Gallbladder. DRAINS None. COMPLICATIONS None. Ssuan Heard M.D./erin Electronically Signed By: SUSAN HEARD MD On: 06/16/2014 04:29 PM Source: [facility] MHSDOLBEYNONRADSYS Document Id: [id number] HEAD DOOR TECHNICIAN Op Note - Melvi Ramirez M.D. - [...] RAMIREZ MD On: 06/09/2014 02:36 PM Source: [facility] [employer] Document Id: [id number] HEAD DOOR TECHNICIAN documented in this encounter Miscellaneous Notes Miscellaneous - Heaven Hensley R.N. - 06/12/2014 12:07 PM CST Discharge Follow Up Discharge Follow Up Entered On: 06/12/2014 12:08 OVERHEAD DOOR TECHNICIAN Performed On: 06/12/2014 12:07 OVERHEAD DOOR TECHNICIAN by HEAVEN HENSLEY RN Discharge Follow Up Follow Up Completed : Other: with mother Fabiola Procedure Date : 06/11/2014 OVERHEAD DOOR TECHNICIAN Proceduralist : SUSAN HEARD MD Reason for Follow Up : post op HEAVEN HENSLEY RN - 06/12/2014 12:07 OVERHEAD DOOR TECHNICIAN Uncontrolled Pain Uncontrolled Pain : No Bleeding [...] No HEAVEN HENSLEY RN - 06/12/2014 12:07 OVERHEAD DOOR TECHNICIAN Source: [facility] [employer] Document Id: [id number] OVERHEAD DOOR TECHNICIAN!19 HEAD DOOR TECHNICIAN Miscellaneous - Mari Mohr R.N. - 06/11/2014 1:30 PM CST Adult Postprocedure Assessment Adult Postprocedure Assessment Entered On: 06/11/2014 13:43 OVERHEAD DOOR TECHNICIAN Performed On: 06/11/2014 13:30 OVERHEAD DOOR TECHNICIAN by MARI MOHR RN Vital Signs Height : 157 cm(Converted to: 5 ft 2 inch(es)) MARI MOHR RN - 06/11/2014 13:42 OVERHEAD DOOR TECHNICIAN General Level of Consciousness : Alert Orientation : Oriented x 3 Skin Color : Normal for ethnicity Skin Description : Dry Skin Temperature : Warm Pain Symptoms : No MARI MOHR RN - 06/11/2014 13:42 OVERHEAD DOOR TECHNICIAN Peripheral IV Peripheral IV Assess/Intervention Grid Peripheral IV #1 IV Activity : Discontinue Number of Attempts : 1 Date of Insertion : 06/11/2014 OVERHEAD DOOR TECHNICIAN IV Site : Hand Laterality : Right Catheter Size : 20 Catheter Type : Protective Site Condition : No complications MARI MOHR RN - 06/11/2014 13:42 OVERHEAD DOOR TECHNICIAN PARSAP Activity Status : Moves 4 extremities [...] 20 MARI MOHR RN - 06/11/2014 13:42 OVERHEAD DOOR TECHNICIAN Source: [employer] Document Id: [id number] OVERHEAD DOOR TECHNICIAN!33 HEAD DOOR TECHNICIAN Miscellaneous - Mari Mohr RKareem. - 06/11/2014 1:00 PM CST Adult Postprocedure Assessment Adult Postprocedure Assessment Entered On: 06/11/2014 13:42 OVERHEAD DOOR TECHNICIAN Performed On: 06/11/2014 13:00 OVERHEAD DOOR TECHNICIAN by MARI MOHR RN Vital Signs Height : 157 cm(Converted to: 5 ft 2 inch(es)) MARI MOHR RN - 06/11/2014 13:41 OVERHEAD DOOR TECHNICIAN General Level of Consciousness : Alert Orientation : Oriented x 3 Skin Color : Normal for ethnicity Skin Temperature : Warm Pain Symptoms : No (Comment: is comfortable now/ up to walk in preciado x 1 [MARI MOHR RN - 06/11/2014 13:41 OVERHEAD DOOR TECHNICIAN] ) MARI MOHR RN - 06/11/2014 13:41 OVERHEAD DOOR TECHNICIAN Source: [employer] Document Id: [id number] OVERHEAD DOOR TECHNICIAN!9 HEAD DOOR TECHNICIAN Miscellaneous - aMri Mohr R.N. - 06/11/2014 12:30 PM CST Adult Postprocedure Assessment Adult Postprocedure Assessment Entered On: 06/11/2014 12:32 OVERHEAD DOOR TECHNICIAN Performed On: 06/11/2014 12:30 OVERHEAD DOOR TECHNICIAN by MARI MOHR RN Vital Signs Height : 157 cm(Converted to: 5 ft 2 inch(es)) MARI MOHR RN - 06/11/2014 12:31 OVERHEAD DOOR TECHNICIAN General Level of Consciousness : Alert Orientation : Oriented x 3 Skin Color : Normal for ethnicity Skin Description : Dry Skin Temperature : Warm Pain Symptoms : No (Comment: states she is not having pain now, and feeling much better. Did get up to bathroom to voidsuccessfully this attempt. [MARI MOHR RN - 06/11/2014 12:31 OVERHEAD DOOR TECHNICIAN] ) MARI MOHR RN - 06/11/2014 12:31 OVERHEAD DOOR TECHNICIAN Source: [facility] POWERCHART Document Id: [id number] OVERHEAD DOOR TECHNICIAN!10 HEAD DOOR TECHNICIAN Miscellaneous - Mari Mohr R.N. - 06/11/2014 12:00 PM CST Adult Postprocedure Assessment Adult Postprocedure Assessment Entered On: 06/11/2014 12:33 OVERHEAD DOOR TECHNICIAN Performed On: 06/11/2014 12:00 OVERHEAD DOOR TECHNICIAN by MARI MOHR RN Vital Signs Height : 157 cm(Converted to: 5 ft 2 inch(es)) MARI MOHR RN - 06/11/2014 12:32 OVERHEAD DOOR TECHNICIAN General Level of Consciousness : Alert Orientation : Oriented x 3 Skin Color : Normal for ethnicity Skin Description : Dry Skin Temperature : Warm Pain Symptoms : Yes MARI MOHR RN - 06/11/2014 12:32 OVERHEAD DOOR TECHNICIAN Pain Pain Assessment Grid Pain 1 Location : Abdomen Intensity : 3 MARI MOHR RN - 06/11/2014 12:32 OVERHEAD DOOR TECHNICIAN (Comment: mainly states she is uncomfortable as she needs to urinate. Will attempt again. [MARI MOHR RN - 06/11/2014 12:32 OVERHEAD DOOR TECHNICIAN] ) Source: [facility] [employer] Document Id: [id number] OVERHEAD DOOR TECHNICIAN!15 HEAD DOOR TECHNICIAN Miscellaneous - Mari Mohr R.N. - 06/11/2014 11:30 AM CST Adult Postprocedure Assessment Adult Postprocedure Assessment Entered On: 06/11/2014 11:34 OVERHEAD DOOR TECHNICIAN Performed On: 06/11/2014 11:30 OVERHEAD DOOR TECHNICIAN by MARI MOHR RN Vital Signs Height : 157 cm(Converted to: 5 ft 2 inch(es)) MARI MOHR RN - 06/11/2014 11:32 OVERHEAD DOOR TECHNICIAN General Level of Consciousness : Other: Up [...] Yes MARI MOHR RN - 06/11/2014 11:32 OVERHEAD DOOR TECHNICIAN Pain Pain Assessment Grid Pain 1 Location : Abdomen Intensity : 4 MARI MOHR RN - 06/11/2014 11:32 OVERHEAD DOOR TECHNICIAN Source: [facility] POWERCHART Document Id: [id number] OVERHEAD DOOR TECHNICIAN!15 HEAD DOOR TECHNICIAN Miscellaneous - Mari Mohr R.N. - 06/11/2014 11:00 AM CST Adult Postprocedure Assessment Adult Postprocedure Assessment Entered On: 06/11/2014 11:32 OVERHEAD DOOR TECHNICIAN Performed On: 06/11/2014 11:00 OVERHEAD DOOR TECHNICIAN by MARI MOHR RN Vital Signs Height : 157 cm(Converted to: 5 ft 2 inch(es)) MARI MOHR RN - 06/11/2014 11:31 OVERHEAD DOOR TECHNICIAN General Level of Consciousness : Drowsy Orientation : Oriented x 3 Skin Color : Normal for ethnicity Skin Description : Dry Pain Symptoms : Yes MARI MOHR RN - 06/11/2014 11:31 OVERHEAD DOOR TECHNICIAN Pain Pain Assessment Grid Pain 1 Location : Abdomen Intensity : 4 MARI MOHR RN - 06/11/2014 11:31 OVERHEAD DOOR TECHNICIAN (Comment: continues to be nauseated at times. [MARI MOHR RN - 06/11/2014 11:31 OVERHEAD DOOR TECHNICIAN] ) Source: [employer] Document Id: [id number] OVERHEAD DOOR TECHNICIAN!14 HEAD DOOR TECHNICIAN Miscellaneous - Mari Mohr R.N. - 06/11/2014 10:30 AM CST Adult Postprocedure Assessment Adult Postprocedure Assessment Entered On: 06/11/2014 11:31 OVERHEAD DOOR TECHNICIAN Performed On: 06/11/2014 10:30 OVERHEAD DOOR TECHNICIAN by MARI MOHR RN Vital Signs Height : 157 cm(Converted to: 5 ft 2 inch(es)) MARI MOHR RN - 06/11/2014 11:30 OVERHEAD DOOR TECHNICIAN General Level of Consciousness : Drowsy Orientation : Oriented x 3 Skin Color : Normal for ethnicity Skin Description : Dry Skin Temperature : Warm Pain Symptoms : Yes MARI MOHR RN - 06/11/2014 11:30 OVERHEAD DOOR TECHNICIAN Pain Pain Assessment Grid Pain 1 Location : Abdomen Intensity : 6 MARI MOHR RN - 06/11/2014 11:30 OVERHEAD DOOR TECHNICIAN Source: [employer] Document Id: [id number] OVERHEAD DOOR TECHNICIAN!15 HEAD DOOR TECHNICIAN Miscellaneous - Wali Zapata R.N. - 06/11/2014 10:26 AM CST Anticoagulation Patient Intake Anticoagulation Patient Intake Entered On: 06/11/2014 10:30 OVERHEAD DOOR TECHNICIAN Performed On: 06/11/2014 10:26 OVERHEAD DOOR TECHNICIAN by WALI ZAPATA RN Plan INR goal range : 2.0 - 3.0 Duration of Therapy : Lifelong Tablet Size : 5 mg WALI ZAPATA RN - 06/11/2014 10:26 OVERHEAD DOOR TECHNICIAN Anticoagulation Management Plan Grid Date : [...] darya BURGESS JM WALI Cortez RN - 06/11/2014 10:26 OVERHEAD DOOR TECHNICIAN WALI ZAPATA RN - 06/11/2014 10:26 WALI HARDWICK RN - 06/11/2014 10:26 WALI HARDWICK RN - 06/11/2014 10:26 OVERHEAD DOOR TECHNICIAN Date : 12/26/2013 CDT 01/30/2014 CDT [...] : WALI Chau RN - 06/11/2014 10:26 OVERHEAD DOOR TECHNICIAN WALI ZAPATA RN - 06/11/2014 10:26 WALI HARDWICK RN - 06/11/2014 10:26 WALI HARDWICK RN - 06/11/2014 10:26 OVERHEAD DOOR TECHNICIAN Date : 03/20/2014 CDT 03/27/2014 CDT [...] as noted Called to mom, [facility] to [facility] has been drinking grape juice. no bleeding. no vitamin K per Dr. Duarte. dose consultwith Agatha Hopkins/Pharmacy. instructed to be seen if bleeding occurs. called mom, Recommend Recheck : One week Two weeks Two days One day, Other: Plan completed by : darya lackey [facility]/pharmacy WALI ZAPATA RN - 06/11/2014 10:26 OVERHEAD DOOR TECHNICIAN WALI ZAPATA RN - 06/11/2014 10:26 OVERHEAD DOOR TECHNICIAN WALI ZAPATA RN - 06/11/2014 10:26 OVERHEAD DOOR TECHNICIAN WALI ZAPATA RN - 06/11/2014 10:26 OVERHEAD DOOR TECHNICIAN Date : 04/17/2014 CDT 04/24/2014 CDT 05/01/2014 OVERHEAD DOOR TECHNICIAN 05/15/2014 OVERHEAD DOOR TECHNICIAN Location of INR sample : Lab [...] will trynoted dose called to mom Fabiola [phone] called to Fabiola/no changes Called to mother/Fabiola, not awareof any changes Recommend Recheck : One week One week Two weeks Two weeks Plan completed by : WALI DAVISON RN - 06/11/2014 10:26 WAIL HARDWICK RN - 06/11/2014 10:26 OVERHEAD DOOR TECHNICIAN WALI ZAPATA RN - 06/11/2014 10:26 OVERHEAD DOOR TECHNICIAN WALI ZAPATA RN - 06/11/2014 10:26 OVERHEAD DOOR TECHNICIAN Date : 06/03/2014 OVERHEAD DOOR TECHNICIAN 06/05/2014 OVERHEAD DOOR TECHNICIAN 06/10/2014 OVERHEAD DOOR TECHNICIAN 06/11/2014 OVERHEAD DOOR TECHNICIAN Location of INR sample : Lab [...] Called motherFabiola. 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 - 06/11/2014 9:58 AM CST Adult Postprocedure Assessment Adult Postprocedure Assessment Entered On: 06/11/2014 10:15 OVERHEAD DOOR TECHNICIAN Performed On: 06/11/2014 9:58 OVERHEAD DOOR TECHNICIAN by MARI MOHR RN Vital Signs Height : 157 cm(Converted to: 5 ft 2 inch(es)) MARI MOHR RN - 06/11/2014 10:10 OVERHEAD DOOR TECHNICIAN General Level of Consciousness : Drowsy Orientation : Oriented x 3 Skin Color : Normal for ethnicity Skin Description : Dry Skin Temperature : Warm Pain Symptoms : Yes MARI MOHR RN - 06/11/2014 10:10 OVERHEAD DOOR TECHNICIAN Pain Pain Assessment Grid Pain 1 Location : Abdomen Intensity : 5 Interventions : Cold, Medications, Repositioning MARI MOHR RN - 06/11/2014 10:10 OVERHEAD DOOR TECHNICIAN (Comment: pt says it is uncomfortable, but not able to really give me a number. Dad who is very involved in her care, says about at 5-6. [MARI MOHR RN - 06/11/2014 10:10 OVERHEAD DOOR TECHNICIAN] ) Incision/Wound Incision/Wound Care Grid Activity : Assessed Type : Surgical acute Location : Abdomen Laterality : Other: laproscopic incisions Drainage : None MARI MOHR RN - 06/11/2014 10:10 OVERHEAD DOOR TECHNICIAN I&O Other Intake : 1,400 mL (Comment: OR [MARI MOHR RN - 06/11/2014 10:10 OVERHEAD DOOR TECHNICIAN] ) MARI MOHR RN - 06/11/2014 10:10 OVERHEAD DOOR TECHNICIAN PARSAP Activity Status : Moves 4 extremities [...] nausea [MARI MOHR RN - 06/11/2014 10:10 OVERHEAD DOOR TECHNICIAN] ) Oxygen Saturation - Sedation : Can maintain > 92% on room air Urine Output, PARSAP : Unable to void but comfortable PARSAP Score : 16 MARI MOHR RN - 06/11/2014 10:10 OVERHEAD DOOR TECHNICIAN Source: [facility] POWERCHART Document Id: [id number] OVERHEAD DOOR TECHNICIAN!38 HEAD DOOR TECHNICIAN Miscellaneous - Mishel Rodriguez R.N. - 06/11/2014 9:55 AM CST Adult Postprocedure Assessment Adult Postprocedure Assessment Entered On: 06/11/2014 9:56 OVERHEAD DOOR TECHNICIAN Performed On: 06/11/2014 9:55 OVERHEAD DOOR TECHNICIAN by MISHEL RODRIGUEZ RN Vital Signs Height : 157 cm(Converted to: 5 ft 2 inch(es)) MISHEL RODRIGUEZ RN - 06/11/2014 9:55 OVERHEAD DOOR TECHNICIAN General Level of Consciousness : Drowsy Pain Symptoms : No MISHEL RODRIGUEZ RN - 06/11/2014 9:55 OVERHEAD DOOR TECHNICIAN Incision/Wound Incision/Wound Care Grid Activity : Assessed Type : Surgical acute Location : Abdomen Description : Dry MISHEL RODRIGUEZ RN - 06/11/2014 9:55 OVERHEAD DOOR TECHNICIAN I&O Other Intake : 1,400 mL MISHEL RODRIGUEZ RN - 06/11/2014 9:58 OVERHEAD DOOR TECHNICIAN Modified Alysha Activity : Moves 4 extremities voluntarily or on command Respiratory : Able to deep breathe and cough freely Circulation : BP +/- 20% of preprocedural level or not unusually high or low Consciousness : Arouses on calling O2 Saturation : O2 SAT at preprocedural level Alysha l Score : 9 MISHEL RODRIGUEZ RN - 06/11/2014 9:55 OVERHEAD DOOR TECHNICIAN Source: [facility] [employer] Document Id: [id number] OVERHEAD DOOR TECHNICIAN!3 HEAD DOOR TECHNICIAN Miscellaneous - Mishel Rodriguez R.N. - 06/11/2014 9:28 AM CST Adult Postprocedure Assessment Adult Postprocedure Assessment Entered On: 06/11/2014 9:39 OVERHEAD DOOR TECHNICIAN Performed On: 06/11/2014 9:28 OVERHEAD DOOR TECHNICIAN by MISHEL RODRIGUEZ RN Vital Signs Height : 157 cm(Converted to: 5 ft 2 inch(es)) MISHEL RODRIGUEZ RN - 06/11/2014 9:36 OVERHEAD DOOR TECHNICIAN General Level of Consciousness : Drowsy Pain Symptoms : No MISHEL RODRIGUEZ RN - 06/11/2014 9:36 OVERHEAD DOOR TECHNICIAN Respiratory Respiratory Patient Stated Symptoms : None Respirations : Unlabored All Lobes Breath Sounds : Clear Cough and Deep Breathe : Done MISHEL RODRIGUEZ RN - 06/11/2014 9:36 OVERHEAD DOOR TECHNICIAN Incision/Wound Incision/Wound Care Grid Activity : Assessed Type : Surgical acute Location : Abdomen Description : Dry, Other: 4 port sites Wound Dressing : Other: dermabond MISHEL RODRIGUEZ RN - 06/11/2014 9:36 OVERHEAD DOOR TECHNICIAN Peripheral IV Peripheral IV Assess/Intervention Grid Peripheral IV #1 IV Activity : Assessment Number of Attempts : 1 Date of Insertion : 06/11/2014 OVERHEAD DOOR TECHNICIAN IV Site : Hand Laterality : Right Catheter Size : 20 Catheter Type : Protective Site Condition : No complications MISHEL RODRIGUEZ RN - 06/11/2014 9:36 OVERHEAD DOOR TECHNICIAN Modified Alysha Activity : Moves 4 extremities voluntarily or on command Respiratory : Able to deep breathe and cough freely Circulation : BP +/- 20% of preprocedural level or not unusually high or low Consciousness : Arouses on calling O2 Saturation : O2 SAT at preprocedural level Alysha l Score : 9 MISHEL RODRIGUEZ RN - 06/11/2014 9:36 OVERHEAD DOOR TECHNICIAN Source: [facility] [employer] Document Id: [id number] OVERHEAD DOOR TECHNICIAN!37 HEAD DOOR TECHNICIAN Miscellaneous - Mari Mohr R.N. - 06/11/2014 6:36 AM CST Height/Length Height/Length Entered On: 06/11/2014 6:36 OVERHEAD DOOR TECHNICIAN Performed On: 06/11/2014 6:36 OVERHEAD DOOR TECHNICIAN by MARI MOHR RN Height/Length Height : 157 cm MARI MOHR RN - 06/11/2014 6:36 OVERHEAD DOOR TECHNICIAN Source: [facility] [employer] Document Id: [id number] OVERHEAD DOOR TECHNICIAN!3 HEAD DOOR TECHNICIAN Miscellaneous - Guillermo Chacon RViktor - 06/06/2014 9:57 AM CST Orders for 06/11/14 From: GUILLERMO CHACON RN To: SUSAN HEARD MD; Cc: AYDE General Surgery Nurse; Sent: 06/06/2014 09:57:00 OVERHEAD DOOR TECHNICIAN Subject: Orders for 06/11/[address] Heard, Please complete Cerner orders for DOS 06/11/14. Thank you! Guillermo Chacon RN Surgery Nurse Sample Selector Source: [facility] Document Id: [id number] Electronically signed by Conversion, [facility] Waterworks Pump Station Operator [id number] at 11/22/2016 6:08 PM CDT documented in this encounter Plan of Treatment Upcoming Encounters Date Type Specialty Care Team Description 06/22/2022 Appointment Laboratory Medicine Rusty Vee M.D. [address] [place] [phone] 06/22/2022 Diagnostic Pulmonary Medicine Rusty Vee M.D. [address] [place] [phone] 06/22/2022 Diagnostic Pulmonary Medicine Rusty Vee M.D. [address] [place] [phone] 06/22/2022 Appointment Radiology Rusty Vee M.D. [address] [place] [phone] 06/23/2022 Clinical Communication Admitting/Central Scheduling 06/28/2022 Appointment Pulmonary Medicine Rusty Vee M.D. [address] [place] [phone] 06/28/2022 Appointment Pulmonary Medicine Rusty Vee M.D. [address] [place] [phone] documented as of this encounter Procedures Procedure Name Priority Date/Time Associated Comments Diagnosis PROTHROMBIN TIME Routine 06/11/2014 6:35 AM Resul ts for this (PT), P OVERHEAD DOOR TECHNICIAN procedure are i n the results section. SURGICAL PATHOLOGY Routine 06/11/2014 12:00 Resul ts for this AM OVERHEAD DOOR TECHNICIAN procedure are i n the results section. documented in this encounter Results PT (Prothrombin Time) with INR (06/11/2014 6:35 AM OVERHEAD DOOR TECHNICIAN) Analysis Performed At Patho logist Time Signature [...] / Volume Laterality Blood 06/11/2014 6:35 AM OVERHEAD DOOR TECHNICIAN Melvi Ramirez M.D. LAB BLOOD ADD-ON Performing Organization Address City/State/ZIP Code Phon e Number POWERCHART Pathology Surgical Pathology (06/11/2014 12:00 AM OVERHEAD DOOR TECHNICIAN) Specimen (Source) Anatomical Location Collection Method / Collectio n Time Received Time / Laterality Volume 06/11/[address] [facility] - 06/12/20 14 11:02 AM OVERHEAD DOOR TECHNICIAN Pat: DORITA SHEFFIELD ?? ([id number]) Age/Sex: 39 ??F ??Loc: ? -00 (RWN ) [facility] ??ANDRES: 06/11/14 00:00 ??REC: 00:00 ??PHYS: , Surgical Pathology ?Gallbladder Patient Name: DORITA SHEFFIELD MR#: [id number] Submitting Physician: SUSAN HEARD MD [id number] Specimen #[id number] Performing Lab: ??[address] [address] Source: Gallbladder Gross Description Received in formalin is a gallbladder th at measures 8.7 x 2.5 x 2.4 cm. ??The serosa is smooth, shiny, and intact. ??T he wall is thin and no polyps or masses are identified. ??There are 63 cholester ol gallstones that measure up to 0.7 cm in greatest dimension. ??Consulting Marine Engineer sections of the gallbladder are submitted in one cassette. JULIET/ed Diagnosis Gallbladder, cholecystectomy: CHOLELITHIASIS WITH MILD CHRONIC CHOLECY STITIS. Electronically Signed By Shawn Vargas ??Jonnathan Pierre - 06/12/2014 pjs/06/12/2014 Historical Provider LAB SURG PATH ORDERABLES Performing Organization Address City/State/ZIP Code Phon e Number [facility] documented in this encounter Visit Diagnoses Not on filedocumented in this encounter
--- OUTSIDE RECORDS SUMMARY | 2022-05-25 21:09 | XMS_ITS | Encounter Summary ---
:1975 Author Organization [facility] Address [address] [place] [id number] Care Team Providers Name Role Phone Unavailable Primary Care Provider Unavailable Encounter Details Date Type Department Care Team Description 04/12/2014 Hospital Encounter HX [facility] Marsha Garibay M.D. [address] [place], [place] [address] [...] at Date Recorded Female 05/03/2022 7:07 PM PHYSICAL THERAPY ASSISTANT INSTRUCTOR documented as of this encounter Medications [...] Document Contains Addenda Addendum by SUDHA ARCOS V RN on 14 April 2014 08:10:41 CDT result from weekend, called mother reviewed plan. From: SUDHA ARCOS V RN ( Anticoagulation Nurse) To: Anticoagulation Nurse; Sent: 04/14/2014 08:03:45 CDT Show up: 04/14/2014 08:04:00 CDT Subject: Results Notification Results: Date Result Name Value Ref Range 04/12/2014 09:29 PT 32.3 second(s) (8.7 - 11.8) 04/12/2014 09:29 INR 2.9 INR (0.9 - 1.1) Source: [facility] POWERCHART Document Id: [id number] Electronically signed by Conversion, [facility] Inspecting And Testing Lead Hand [id number] at 11/22/2016 2:10 AM CDT Miscellaneous - Janie Adler, GilmaPh. - 04/12/2014 9:59 AM CDT Anticoagulation Patient [...] weeks Two weeks Plan completed by : JANIE Morales 04/12/2014 9:59 CDT JANIE ADLER 04/12/2014 9:59 CDT JANIE ADLER 04/12/2014 9:59 CDT JANIE ADLER 04/12/2014 9:59 CDT Date : 12/26/2013 CDT [...] 03/20/14 Plan completed by : JANIE Ramos 04/12/2014 9:59 CDT JANIE ADLER 04/12/2014 9:59 CDT JANIE ADLER 04/12/2014 9:59 CDT JANIE ADLER 04/12/2014 9:59 CDT Date : 03/20/2014 CDT [...] JANIE ADLER - 04/12/2014 9:59 CDT [facility]: [facility] Document Id: [id number] CDT!121 documented in this encounter Plan of Treatment Upcoming Encounters Date Type Specialty Care Team Description 06/22/2022 Appointment Laboratory Medicine Rusty Vee M.D. [address] [place] [phone] 06/22/2022 Diagnostic Pulmonary Medicine Rusty Vee M.D. [address] [place] [phone] 06/22/2022 Diagnostic Pulmonary Medicine Rusty Vee M.D. [address] [place] [phone] 06/22/2022 Appointment Radiology Rusty Vee M.D. [address] [place] [phone] 06/23/2022 Clinical Communication Admitting/Central Scheduling 06/28/2022 Appointment Pulmonary Medicine Rusty Vee M.D. [address] [place] [phone] 06/28/2022 Appointment Pulmonary Medicine Rusty Vee M.D. [address] [place] [phone] documented as of this encounter Procedures Procedure Name Priority Date/Time Associated Comments Diagnosis PROTHROMBIN TIME Routine 04/12/2014 9:29 AM Resul ts for this (PT), P CDT procedure are i n the results section. documented in this encounter Results (ABNORMAL) PT (Prothrombin Time) with INR (04/12/2014 9:29 AM CDT) [facility] gist Method Time Signature Prothrombin 32.3 (H) [...]
--- OUTSIDE RECORDS SUMMARY | 2022-05-25 21:09 | XMS_ITS | Encounter Summary ---
:1975 Author Organization [facility] Address [address] [place] [address] Care Team Providers Name Role Phone Unavailable Primary Care Provider Unavailable Encounter Details Date Type Department Care Team Description 05/29/2014 Hospital Encounter HX [facility] Susan Heard SURGCLINI M.D. [address] [place] [address] (Wo rk) Social History Tobacco [...] at Date Recorded Female 05/03/2022 7:07 PM SAFETY REPRESENTATIVE documented as of this encounter Last Filed Vital Signs Vital Sign Reading Time Taken Comments Blood Pressure 104/52 05/29/2014 2:09 PM SAFETY REPRESENTATIVE Pulse 69 05/29/2014 2:09 PM SAFETY REPRESENTATIVE Temperature - - Respiratory Rate - - Oxygen Saturation - - Inhaled Oxygen Concentration - - Weight - - Height 157 cm (5' 1.81) 05/29/2014 2:09 PM SAFETY REPRESENTATIVE Body Mass Index - - documented in this encounter Medications at Time of Discharge Medication Sig Dispensed Refills Start Date End Date multivitamin tablet Take 2 tablets by 0 3 mouth daily. FLUORIDE, SODIUM, Apply 1 application 0 3 12/31/2019 DENTAL topically 2 (two) times a day. documented as of this encounter Consult Notes Susan Heard M.D. - 05/29/2014 1:55 PM CST [id number] I was asked to see this patient [...] noncontributory. SOCIAL HISTORY Patient lives alone at [facility] and is fairly independent. She does not [...] Susan Heard M.D./erin cc: Tasha Henriquez M.D. [address] [place] [address] Electronically Signed By: SUSAN HEARD MD On: 06/16/2014 04:30 PM Source: [facility] MIKI Document Id: [id number] TY REPRESENTATIVE documented in this encounter Nursing Notes Susan [...] arm, back, neck or jaw pain ?? [phone] [facility], [address] [place] [address], [place] [address]. All rights reserved. This information is not intended as a substitute for professional medical care. Always follow your healthcare professional's instructions. This document has images extracted. Please consider using [employer] for all your patient education needs. Source: [facility] [employer] Document Id: [id number] TY REPRESENTATIVE documented in this encounter Miscellaneous Notes Miscellaneous - Conversion, Historical Provider Ser - 05/29/2014 4:53 PM SAFETY REPRESENTATIVE Insurance verification From: BLAYNE ANNE Sent: 05/29/2014 16:53:44 SAFETY REPRESENTATIVE Subject: Insurance verification Verified insurance for Odrita's surgery scheduled for 06/11/14 via [employer]. Pt has current coverage with /[facility]. No auth is required for this OP procedure, CPT 11636 [facility] Document Id: [id number] Miscellaneous - Cassidy Peralta, L.P.N. - 05/29/2014 2:50 PM CST GENERAL SURGERY REQUEST From: CASSIDY PERALTA LPN To: [facility]; [facility] Surgery Nurse Intake Man; Surgery Mannequin Decorator; Sent: 05/29/2014 14:50:05 SAFETY REPRESENTATIVE Subject: GENERAL SURGERY REQUEST Surgery Clinic Schedule Checklist Patient Contact Number: [phone] (AREN CASTLE) Surgeon: DR. HEARD Surgical Service: [...] Yes X-Ray Location (if not done in [facility]): _ CPM Post-op: (_) No (_) Yes- please make sure MD places order If Total Joint Case: Type of Prosthesis: _ Additional equipment: _ Has other side been done: (_) No (_) Yes Source: [facility] POWERCHART Document Id: [id number] Electronically signed by [facility] Physician Intensivist [id number] at 11/22/2016 9:43 PM CDT Miscellaneous - Susan Heard M.D. - 05/29/2014 2:42 PM CST Ambulatory Patient Summary [address] [place], [place] [phone] Visit Information Name: DORITA SHEFFIELD [facility] Number: [id number] Current Date: 05/29/2014 14:42:14 [...] right lower abdomen ?? Repeated vomiting ?? [id number] of the abdomen ?? Pain lasts over 6 hours ?? Fever of 100.4?F (38?C) or higher, or as directed by your healthcare provider ?? Weakness, dizziness or fainting ?? Dark urine or light colored stools ?? Yellow color of the skin or eyes ?? Chest, arm, back, neck or jaw pain ?? [phone] [facility], [address] [place] [address], [place] [address]. All rights reserved. This information is not intended as a substitute for professional medical care. Always follow your healthcare professional's instructions. Your Goals/Additional instructions: This document has images extracted. Please consider using [employer] for all your patient education needs. Source: [facility] POWERCHART Document Id: [id number] TY REPRESENTATIVE Miscellaneous - Susan Heard M.D. - 05/29/2014 2:42 PM CST Ambulatory Discharge Medication List [place] [address] [address] [place], [place] [phone] Visit Information Name: DORITA SHEFFIELD [facility] Number: [id number] Visit Date: 05/29/2014 14:42:13 Attending Provider: SUSAN HERAD MD Primary Care Provider: TASHA HENRIQUEZ MD [...] MD Signed On:29-MAY-2014 14:41:42 Additional Information: Source: [facility] POWERCHART Document Id: [id number] TY REPRESENTATIVE Miscellaneous - Conversion, Historical Provider Ser - 05/29/2014 2:09 PM SAFETY REPRESENTATIVE Adult Fast Food Fry Cook Intake/History Adult Fast Food Fry Cook Intake/History Entered On: 05/29/2014 14:12 SAFETY REPRESENTATIVE Performed On: 05/29/2014 14:09 SAFETY REPRESENTATIVE by CAROLA GOODSON CMA Intake Chief Complaint : Consult-gallbladder/pt had US /pt on Warfarin for blood clots Temperature Core : 36.8 DegC(Converted to: 98.2 DegF) Peripheral Pulse Rate : 69 /min Systolic Blood Pressure : 104 mmHg Diastolic Blood Pressure : 52 mmHg NIBP Mean : 69 mmHg Height : 157 cm(Converted to: 5 ft 2 inch(es), 62 inch(es)) HAMZAHCAROLA Larson Juan SZYMANSKI - 05/29/2014 14:09 SAFETY REPRESENTATIVE General Info Information Given By : Patient Preferred Communication Mode : Verbal Languages : Citizen Of [place] Is Patient Female and 13-50 no hysterectomy : Yes Status : Patient denies Are you ? : No CAROLA GOODSON CMA - 05/29/2014 14:09 SAFETY REPRESENTATIVE Subjective Pain Symptoms : Yes CAROLA GOODSON CMA - 05/29/2014 14:09 SAFETY REPRESENTATIVE Pain Pain Assessment Grid Pain 1 Location : Abdomen Intensity : 10 HAMZAHCAROLA CMA - 05/29/2014 14:09 SAFETY REPRESENTATIVE Dependent Habits Tobacco Use/Currently Using : No Smoking Status : Never smoker CAROLA GOODSON CMA - 05/29/2014 14:09 SAFETY REPRESENTATIVE ID Screen Travel Within Last 21 Days : No HAMZAHCAROLA CMA - 05/29/2014 14:09 SAFETY REPRESENTATIVE [facility] POWER[facility] Document Id: [id number] SAFETY REPRESENTATIVE!28 documented in this encounter Plan of Treatment Upcoming Encounters Date Type Specialty Care Team Description 06/22/2022 Appointment Laboratory Medicine Rusty Vee M.D. [address] [place] [phone] 06/22/2022 Diagnostic Pulmonary Medicine Rusty Vee M.D. [address] [place] [address] 06/22/2022 Diagnostic Pulmonary Medicine Rusty Vee M.D. [address] [place] [phone] 06/22/2022 Appointment Radiology Rusty Vee M.D. [address] [place] [phone] 06/23/2022 Clinical Communication Admitting/Central Scheduling 06/28/2022 Appointment Pulmonary Medicine Rusty Vee M.D. [address] [place] [phone] 06/28/2022 Appointment Pulmonary Medicine Rusty Vee M.D. [address] [place] [phone] documented as of this encounter Visit Diagnoses Not on filedocumented in this encounter
--- OUTSIDE RECORDS SUMMARY | 2022-05-25 21:09 | XMS_ITS | Encounter Summary ---
:1975 Author Organization [facility] Address [address] [place] [address] Care Team Providers Name Role Phone Unavailable Primary Care Provider Unavailable Encounter Details Date Type Department Care Team Description 06/23/2014 Hospital Encounter HX [facility] Susan Heard SURGCLINI M.D. [address] [place] [address] (Wo rk) Social History Tobacco [...] Date Recorded Female 05/03/2022 7:[address] CLERK documented as of this encounter Last Filed Vital Signs Vital Sign Reading Time Taken Comments Blood Pressure 95/76 06/23/2014 8:[address] CLERK Pulse 88 06/23/2014 8:[address] CLERK Temperature - - Respiratory Rate - - Oxygen Saturation - - Inhaled Oxygen Concentration - - Weight - - Height 157 cm (5' 1.81) 06/23/2014 8:[address] CLERK Body Mass Index - - documented in this encounter Medications at Time of Discharge Medication Sig Dispensed Refills Start Date End Date multivitamin tablet Take 2 tablets by 0 3 mouth daily. FLUORIDE, SODIUM, Apply 1 application 0 3 12/31/2019 DENTAL topically 2 (two) times a day. documented as of this encounter Progress Notes Susan Heard M.D. - 06/23/2014 8:51 AM CST [id number] HISTORY OF PRESENT ILLNESS Dorita is a [...] well with no redness or drainage. Dorita's josjwh-ad-oyz is present with her in clinic today. [...] with the patient and her family. IMPRESSION/REPORT/PLAN Baefl-qbhp-jsg female status post laparoscopic cholecystectomy, doing well [...] an as-needed basis. Susan Heard M.D./erin cc: Tasha Henriquez M.D. [facility] [address] [facility] [place] [address] Electronically Signed By: SUSAN HEARD MD On: 06/24/2014 12:09 PM Modified by and Electronically Signed by: SUSAN HEARD MD On: 06/24/2014 12:09 PM Source: [facility] MHSDOLBEYNONRADSYS Document Id: [id number] TENANCE OF WAY CLERK documented in this encounter Nursing Notes Susan [...] Shortness of breath or chest pain ?? [phone] [facility], [address] [place] [address], [place] [address]. All rights reserved. This information is not intended as a substitute for professional medical care. Always follow your healthcare professional's instructions. Source: [facility] POWERCHART Document Id: [id number] TENANCE OF WAY CLERK documented in this encounter Miscellaneous Notes Miscellaneous - Susan Heard M.D. - 06/23/2014 9:35 AM CST Ambulatory Patient Summary [address] [place] [phone] Visit Information Name: DORITA SHEFFIELD [facility] Number: [id number] Current Date: 06/23/2014 09:35:23 Physicians [...] Shortness of breath or chest pain ?? [phone] [facility], [address] [place] [address], [place] [address]. All rights reserved. This information is not intended as a substitute for professional medical care. Always follow your healthcare professional's instructions. Your Goals/Additional instructions: Source: [facility] POWERCHART Document Id: [id number] TENANCE OF WAY CLERK Miscellaneous - Susan Heard M.D. - 06/23/2014 9:35 AM CST Ambulatory Discharge Medication List [facility] [address] [facility], [address] [place], [place] [phone] Visit Information Name: DORITA SHEFFIELD [facility] Number: [id number] Visit Date: 06/23/2014 09:35:22 Attending [...] MD Signed On:23-JUN-2014 09:34:17 Additional Information: Source: [facility] [employer] Document Id: [id number] TENANCE OF WAY CLERK Miscellaneous - Sudha Montes L.P.N. - 06/23/2014 8:54 AM CST Adult Senior Business Analyst Intake/History Adult Senior Business Analyst Intake/History Entered On: 06/23/2014 8:[address] CLERK Performed On: 06/23/2014 8:[address] CLERK by SUDHA FLORENCE LPN Intake Chief Complaint : 1st post op lap brianna Temperature Core : 36.5 DegC(Converted to: 97.7 DegF) Peripheral Pulse Rate : 88 /min Systolic Blood Pressure : 95 mmHg Diastolic Blood Pressure : 76 mmHg NIBP Mean : 82 mmHg Height : 157 cm(Converted to: 5 ft 2 inch(es), 62 inch(es)) SUDHA FLORENCE LPN - 06/23/2014 8:[address] CLERK General Info Information Given By : Patient Languages : Luxembourgish Is Patient Female and 13-50 no hysterectomy : Yes Status : Patient denies Are you ? : No SUDHA FLORENCE LPN - 06/23/2014 8:[address] CLERK Subjective Pain Symptoms : No SUDHA FLORENCE LPN - 06/23/2014 8:[address] CLERK Dependent Habits Tobacco Use/Currently Using : No Exposure to Tobacco Smoke : Other: never smoker Smoking Status : Never smoker SUDHA FLORENCE LPN - 06/23/2014 8:[address] CLERK ID Screen Drug Resistant Organism : No Travel Within Last 21 Days : No SUDHA FLORENCE LPN - 06/23/2014 8:[address] CLERK Source: [facility] [employer] Document Id: [id number] MAINTENANCE OF WAY CLERK![address] CLERK documented in this encounter Plan of Treatment Upcoming Encounters Date Type Specialty Care Team Description 06/22/2022 Appointment Laboratory Medicine Rusty Vee M.D. [address] [place] [phone] 06/22/2022 Diagnostic Pulmonary Medicine Rusty Vee M.D. [address] [place] [phone] 06/22/2022 Diagnostic Pulmonary Medicine Rusty Vee M.D. [address] [place] [phone] 06/22/2022 Appointment Radiology Rusty Vee M.D. [address] [place] [phone] 06/23/2022 Clinical Communication Admitting/Central Scheduling 06/28/2022 Appointment Pulmonary Medicine Rusty Vee M.D. [address] [place] [phone] 06/28/2022 Appointment Pulmonary Rusty Mattson M.D. [address] [place] [phone] documented as of this encounter Visit Diagnoses Not on filedocumented in this encounter
--- OUTSIDE RECORDS SUMMARY | 2022-05-25 21:09 | XMS_ITS | Encounter Summary ---
:1975 Author Organization [facility] Address [address] [place] [address] Care Team Providers Name Role Phone Unavailable Primary Care Provider Unavailable Encounter Details Date Type Department Care Team Description 05/29/2014 Hospital Encounter HX [facility] Marsha Henriquez M.D. [address] [place], [place] [address] (Wo rk) Social History [...] More than 4 times per year 05/04/2022 gnosticism services? Do you belong to any clubs [...] at Date Recorded Female 05/03/2022 7:07 PM PICTURE PAINTER documented as of this encounter Medications at Time of Discharge Medication Sig Dispensed Refills Start Date End Date multivitamin tablet Take 2 tablets by 0 3 mouth daily. FLUORIDE, SODIUM, Apply 1 application 0 3 12/31/2019 DENTAL topically 2 (two) times a day. documented as of this encounter Miscellaneous Notes Miscellaneous - Wali Zapata RMichaelNMichael - 06/05/2014 9:08 AM CST Anticoagulation Patient Intake Anticoagulation Patient Intake Entered On: 06/05/2014 9:14 PICTURE PAINTER Performed On: 06/05/2014 9:08 PICTURE PAINTER by WALI ZAPATA RN Plan INR goal range : 2.0 - 3.0 Duration of Therapy : Lifelong Tablet Size : 5 mg WALI ZAPATA RN - 06/05/2014 9:08 PICTURE PAINTER Anticoagulation Management Plan Grid Date : 09/05/2013 [...] darya BURGESS JM WALI Cortez RN - 06/05/2014 9:08 PICTURE PAINTER WALI ZAPATA RN - 06/05/2014 9:08 PICTURE PAINTER WALI ZAPATA RN - 06/05/2014 9:08 PICTURE PAINTER WALI ZAPATA RN - 06/05/2014 9:08 PICTURE PAINTER Date : 12/26/2013 CDT 01/30/2014 CDT 03/06/2014 [...] : WALI Chau RN - 06/05/2014 9:08 PICTURE PAINTER WALI ZAPATA RN - 06/05/2014 9:08 WALI HARDWICK RN - 06/05/2014 9:08 WALI HARDWICK RN - 06/05/2014 9:08 PICTURE PAINTER Date : 03/20/2014 CDT 03/27/2014 CDT 04/10/2014 [...] /pharmacy WALI ZAPATA RN - 06/05/2014 9:08 WALI HARDWICK RN - 06/05/2014 9:08 WALI HARDWICK RN - 06/05/2014 9:08 WALI HARDWICK RN - 06/05/2014 9:08 PICTURE PAINTER Date : 04/17/2014 CDT 04/24/2014 CDT 05/01/2014 PICTURE PAINTER 05/15/2014 PICTURE PAINTER Location of INR sample : Lab Lab [...] will trynoted dose called to mom Fabiola [phone] called to Fabiola/no changes Called to mother/Fabiola, not awareof any changes Recommend Recheck : One week One week Two weeks Two weeks Plan completed by : WALI DAVISON RN - 06/05/2014 9:08 WALI HARDWICK RN - 06/05/2014 9:08 WALI HARDWICK RN - 06/05/2014 9:08 WALI HARDWICK RN - 06/05/2014 9:08 PICTURE PAINTER Date : 06/03/2014 PICTURE PAINTER 06/05/2014 PICTURE PAINTER Location of INR sample : Lab Type [...] Called motherFabiola. Hue will be staying in [place] 2wks post-surgery & have INR drawn there. She will resume normal dosing after surgery. Recommend Recheck : Other: depending on Dr. Henriquez's preop. Other: 06/18 Plan completed by : WALI YAO RN - 06/05/2014 9:08 PICTURE PAINTER WALI ZAPATA RN - 06/05/2014 9:08 PICTURE PAINTER Source: [facility] [employer] Document Id: [id number] PICTURE PAINTER!178 URE PAINTER Miscellaneous - Wali Zapata R.N. - 06/03/2014 11:07 AM CST *General Message Document Contains Addenda Addendum by WALI ZAPATA RN on 05 June 2014 09:22:56 PICTURE PAINTER Called mother, Fabiola. She will begin holding Hue's coumadin 06/06/14. Arranged re-check INR 06/18/14 in [place]. They will fax results to INR clinic. Addendum by WALI ZAPATA RN on 04 June 2014 08:28:29 PICTURE PAINTER From: WALI ZAPATA RN ( Oncology/Infusion Therapy Nurse) To: Anticoagulation Nurse; Sent: 06/04/2014 08:28:29 PICTURE PAINTER Subject: FW: *General Message Addendum by TASHA HENRIQUEZ MD on 04 June 2014 08:10:06 PICTURE PAINTER From: TASHA HENRIQUEZ MD To: Oncology/Infusion Therapy Nurse; Cc: Anticoagulation Nurse; Sent: 06/04/2014 08:10:06 PICTURE PAINTER Subject: RE: *General Message does not require anticoagulation bridging and is to stop warfarin 5 days before surgery. thanks. From: WALI ZAPATA RN ( Oncology/Infusion Therapy Nurse) To: TASHA HENRIQUEZ MD; Cc: Anticoagulation Nurse; Sent: 06/03/2014 11:07:08 PICTURE PAINTER Subject: *General Message This patient has a [...] you. Source: [facility] POWERCHART Document Id: [id number] Electronically signed by [facility] Product Safety Professional [id number] at 11/22/2016 9:43 PM CDT Miscellaneous - Wali Zapata RMichaelNMichael - 06/03/2014 10:59 AM CST Anticoagulation Patient Intake Anticoagulation Patient Intake Entered On: 06/03/2014 11:04 PICTURE PAINTER Performed On: 06/03/2014 10:59 PICTURE PAINTER by WALI ZAPATA RN Plan INR goal range : 2.0 - 3.0 Duration of Therapy : Lifelong Tablet Size : 5 mg WALI ZAPATA RN - 06/03/2014 10:59 PICTURE PAINTER Anticoagulation Management Plan Grid Date : 09/05/2013 [...] JM WALI Cortez RN - 06/03/2014 10:59 PICTURE PAINTER WALI ZAPATA RN - 06/03/2014 10:59 PICTURE PAINTER WALI ZAPATA RN - 06/03/2014 10:59 WALI HARDWICK RN - 06/03/2014 10:59 PICTURE PAINTER Date : 12/26/2013 CDT 01/30/2014 CDT 03/06/2014 [...] completed by : WALI Chau RN - 06/03/2014 10:59 WALI HARDWICK RN - 06/03/2014 10:59 WALI HARDWICK RN - 06/03/2014 10:59 WALI HARDWICK RN - 06/03/2014 10:59 PICTURE PAINTER Date : 03/20/2014 CDT 03/27/2014 CDT 04/10/2014 [...] lackey LM /pharmacy WALI ZAPATA RN - 06/03/2014 10:59 PICTURE PAINTER WALI ZAPATA RN - 06/03/2014 10:59 PICTURE PAINTER WALI ZAPATA RN - 06/03/2014 10:59 PICTURE PAINTER WALI ZAPATA RN - 06/03/2014 10:59 PICTURE PAINTER Date : 04/17/2014 CDT 04/24/2014 CDT 05/01/2014 PICTURE PAINTER 05/15/2014 PICTURE PAINTER Location of INR sample : Lab Lab [...] will trynoted dose called to mom Fabiola [phone] called to Fabiola/no changes Called to mother/Fabiola, not awareof any changes Recommend Recheck : One week One week Two weeks Two weeks Plan completed by : WALI DAVISON RN - 06/03/2014 10:59 PICTURE PAINTER WALI ZAPATA RN - 06/03/2014 10:59 WALI HARDWICK RN - 06/03/2014 10:59 WALI HARDWICK RN - 06/03/2014 10:59 PICTURE PAINTER Date : 06/03/2014 PICTURE PAINTER Location of INR sample : Lab Type [...] : WALI CARSON RN - 06/03/2014 10:59 PICTURE PAINTER Anticoagulation Assessment / History Visit : Phone management Plan of Care Date : 01/29/2008 CDT Primary Physician Anticoagulation : TASHA HENRIQUEZ MD 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 : DVT Lower, Other: Deep Phlebitis-Leg NEC CHADS2 Score Date : 09/05/2013 CDT WALI ZAPATA RN - 06/03/2014 10:59 PICTURE PAINTER Changes / Problems Changes/Problems Since Last Visit : None Been Scheduled For : Surgical Procedures Missed Coumadin Doses : None Change In Intake : None Change In Medication : None Have You Had : None Plans to Travel : No WALI ZAPATA RN - 06/03/2014 10:59 PICTURE PAINTER [facility] Document Id: [id number] PICTURE PAINTER!186 URE PAINTER documented in this encounter Plan of Treatment Upcoming Encounters Date Type Specialty Care Team Description 06/22/2022 Appointment Laboratory Medicine Rusty Vee M.D. [address] [place] [phone] 06/22/2022 Diagnostic Pulmonary Medicine Rusty Vee M.D. [address] [place] [phone] 06/22/2022 Diagnostic Pulmonary Medicine Rusty Vee M.D. [address] [place] [phone] 06/22/2022 Appointment Radiology Rusty Vee M.D. [address] [place] [phone] 06/23/2022 Clinical Communication Admitting/Central Scheduling 06/28/2022 Appointment Pulmonary Medicine Rusty Vee M.D. [address] [place] [phone] 06/28/2022 Appointment Pulmonary Medicine Rusty Vee M.D. [address] [place] [phone] documented as of this encounter Visit Diagnoses Not on filedocumented in this encounter
--- OUTSIDE RECORDS SUMMARY | 2022-05-25 21:09 | XMS_ITS | Encounter Summary ---
:1975 Author Organization [facility] Address [address] [place] [address] Care Team Providers Name Role Phone Unavailable Primary Care Provider Unavailable Encounter Details Date Type Department Care Team Description 06/23/2014 Hospital Encounter HX [facility] Marsha Henriquez M.D. [address] [place], [place] [address] (Wo rk) Social History [...] Date Recorded Female 05/03/2022 7:07 PM MINE CAPTAIN documented as of this encounter Last Filed Vital Signs Vital Sign Reading Time Taken Comments Blood Pressure - - Pulse - - Temperature - - Respiratory Rate - - Oxygen Saturation - - Inhaled Oxygen Concentration - - Weight - - Height 157 cm (5' 1.81) 06/23/2014 9:12 AM MINE CAPTAIN Body Mass Index - - documented in [...] Anticoagulation Patient Intake Entered On: 06/23/2014 9:48 MINE CAPTAIN Performed On: 06/23/2014 9:46 MINE CAPTAIN by SUDHA ARCOS RN Plan INR goal range : 2.0 - 3.0 Duration of Therapy : Lifelong Tablet Size : 5 mg SUDHA ARCOS RN - 06/23/2014 9:46 MINE CAPTAIN Anticoagulation Management Plan Grid Date : 09/05/2013 [...] by : darya BURGESS JM SUDHA Chan RN - 06/23/2014 9:46 MINE CAPTAIN SUDHA ARCOS RN - 06/23/2014 9:46 MINE CAPTAIN SUDHA ARCOS RN - 06/23/2014 9:46 MINE CAPTAIN SUDHA ARCOS RN - 06/23/2014 9:46 MINE CAPTAIN Date : 12/26/2013 CDT 01/30/2014 CDT 03/06/2014 [...] a long time, no bleeding now [place] [facility] [place],call if changes Recommend Recheck : Other: 5 weeks Other: 5 weeks Other: 03/10/2014 Other: 03/20/14 Plan completed by : SUDHA Richey V RN - 06/23/2014 9:46 MINE CAPTAIN SUDHA ARCOS V RN - 06/23/2014 9:46 MINE CAPTAIN SUDHA ARCOS V RN - 06/23/2014 9:46 MINE CAPTAIN SUDHA ARCOS V RN - 06/23/2014 9:46 MINE CAPTAIN Date : 03/20/2014 CDT 03/27/2014 CDT 04/10/2014 [...] by : darya lackey LM /pharmacy SUDHA ARCOS V RN - 06/23/2014 9:46 MINE CAPTAIN SUDHA ARCOS V RN - 06/23/2014 9:46 MINE CAPTAIN SUDHA ARCOS V RN - 06/23/2014 9:46 MINE CAPTAIN SUDHA ARCOS V RN - 06/23/2014 9:46 MINE CAPTAIN Date : 04/17/2014 CDT 04/24/2014 CDT 05/01/2014 MINE CAPTAIN 05/15/2014 MINE CAPTAIN Location of INR sample : Lab Lab [...] will trynoted dose called to mom Fabiola [phone] called to Fabiola/no changes Called to mother/Fabiola, not awareof any changes Recommend Recheck : One week One week Two weeks Two weeks Plan completed by : MARIA GUADALUPE PRECIADO SUDHA ARCOS V RN - 06/23/2014 9:46 MINE CAPTAIN SUDHA ARCOS V RN - 06/23/2014 9:[address] [facility] SUDHA ARCOS V RN - 06/23/2014 9:46 MINE CAPTAIN SUDHA ARCOS V RN - 06/23/2014 9:46 MINE CAPTAIN Date : 06/03/2014 MINE CAPTAIN 06/05/2014 MINE CAPTAIN 06/10/2014 MINE CAPTAIN 06/11/2014 MINE CAPTAIN Location of INR sample : Lab Type of Sample : Venous INR Result : 2.1(05/29) Warfarin Dose : 5mg Mon and 2.5mg all other days 5mg Mon and 2.5mg all other days 5mg 06/11 & 2.5mg 06/12 Total Weekly Warfarin Dose : 20 20 Comment : Processed 06/03/14 due to result not received in INR clinic. Pt was in ER 12/4. Having cholecystectomy 06/11. Will have pre-op 06/09. Will message Dr. Henriquez to check about when to stop coumadin and if bridging needed. Called to mother/Fabiola. Per message from Dr. Henriquez, stop coumadin 5days prior to surgery (06/06) with no bridging. Called motherFabiola. Hue will be staying in [place] 2wks post-surgery & have INR drawn there. [...] lovenox tomorrow AM as ordered. INR in [place] for next several weeks as pt will be recovering there. Recommend Recheck : Other: depending on Dr. Henriquez's preop. Other: 06/18 Other: 06/13/14 Plan completed by : SUDHA MCINTOSH V RN - 06/23/2014 9:46 MINE CAPTAIN SUDHA ARCOS V RN - 06/23/2014 9:46 MINE CAPTAIN SUDHA ARCOS V RN - 06/23/2014 9:46 MINE CAPTAIN SUDHA ARCOS V RN - 06/23/2014 9:46 MINE CAPTAIN Date : 06/14/2014 MINE CAPTAIN 06/14/2014 MINE CAPTAIN 06/16/2014 MINE CAPTAIN 06/23/2014 MINE CAPTAIN Location of INR sample : Clinic Lab Lab Type of Sample : Venous Venous INR Result : 1.3 on 06/13 2.4 faxed from lab 2.0 Warfarin Dose : (pt took 2.5mg 06/13) 5mg Sat and 5mg Sun (06/14 and 06/15) 5mg Mon and 2.5mg all other days 5mg Mon and 2.5mg all other days Total Weekly Warfarin Dose : 20 20 Comment : [place] lab called with INR result from 06/13, reported they left a message with Dr. Henriquez and hadn't heard back, spoke with mother, Fabiola, and gave doses, continue Lovenox and repeat INR 06/16, message left with INR clinic in [place] to contact CF Please contact [facility] on 06/16 for result and may call Fabiola at [phone] with instructions call to Fabiola/will stop Lovenox injections and take noted dose/pt has an appt here in [place] 06/23 so will do lab appt here that day Called to Fabiola/ Hue will be back at [facility] by next draw. will have done on . no changes to meds/diet. 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 - 06/23/2014 9:44 AM CST Results Notification Document Contains Addenda Addendum by SUDHA ARCOS RN on 23 June 2014 09:49:30 MINE CAPTAIN called to pt's mom. From: SUDHA ARCOS RN ( Anticoagulation Nurse) To: Anticoagulation Nurse; Sent: 06/23/2014 09:44:13 MINE CAPTAIN Show up: 06/23/2014 09:45:00 MINE CAPTAIN Subject: Results Notification Results: Date Result Name Value Ref Range 06/23/2014 09:18 PT 21.0 second(s) (8.7 - 11.8) 06/23/2014 09:18 INR 2.0 INR (0.9 - 1.1) Source: [facility] POWERCHART Document Id: [id number] documented in this encounter Plan of Treatment Upcoming Encounters Date Type Specialty Care Team Description 06/22/2022 Appointment Laboratory Medicine uRsty Vee M.D. [address] [place] [phone] 06/22/2022 Diagnostic Pulmonary Medicine Rusty Vee M.D. [address] [place] [phone] 06/22/2022 Diagnostic Pulmonary Medicine Rusty Vee M.D. [address] [place] [phone] 06/22/2022 Appointment Radiology Rusty Vee M.D. [address] [place] [phone] 06/23/2022 Clinical Communication Admitting/Central Scheduling 06/28/2022 Appointment Pulmonary Medicine Rusty Vee M.D. [address] [place] [phone] 06/28/2022 Appointment Pulmonary Medicine Rusty Vee M.D. [address] [place] [phone] documented as of this encounter Procedures Procedure Name Priority Date/Time Associated Comments Diagnosis PROTHROMBIN TIME Routine 06/23/2014 9:18 AM Resul ts for this (PT), P MINE CAPTAIN procedure are i n the results section. documented in this encounter Results (ABNORMAL) PT (Prothrombin Time) with INR (06/23/2014 9:18 AM MINE CAPTAIN) [facility] Method Time Signature Prothrombin 21.0 (H) 8.7 [...] / Volume Laterality Blood 06/23/2014 9:18 AM MINE CAPTAIN Tasha Henriquez M.D. LAB BLOOD ADD-ON Performing Organization Address City/State/ZIP Code Phon e Number POWERCHART documented in this encounter Visit Diagnoses Not on filedocumented in this encounter
--- OUTSIDE RECORDS SUMMARY | 2022-05-25 21:10 | XMS_ITS | Encounter Summary ---
:1975 Author Organization [facility] Address [address] [place] [address] Care Team Providers Name Role Phone Unavailable Primary Care Provider Unavailable Encounter Details Date Type Department Care Team Description 12/12/2013 Hospital Encounter HX [facility] Marsha Henriquez M.D. [address] [place], [place] [address] (Wo rk) Social History [...] More than 4 times per year 05/04/2022 uatsdin services? 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 FLUORIDE, SODIUM, Apply 1 application 0 3 12/31/2019 DENTAL topically 2 (two) times a day. documented as of this encounter Miscellaneous Notes Miscellaneous - Khadar Medina R.N. - 12/12/2013 11:50 AM CDT Anticoagulation Patient [...] darya BURGESS JM KHADAR Mae RN - 12/12/2013 11:50 CDT KHADAR MEDINA [...] MEDINA RN - 12/12/2013 11:50 CDT Source: [facility] [employer] Document Id: [id number] CDT!61 Miscellaneous - Khadar Medina R.N. - 12/12/2013 11:03 AM CDT Results Notification From: KHADAR MEDINA RN ( Anticoagulation Nurse) To: Anticoagulation Nurse; Sent: 12/12/2013 11:03:04 CDT Show up: 12/12/2013 11:04:00 CDT Subject: Results Notification Results: Date Result Name Value Ref Range 12/12/2013 08:01 PT 33.0 second(s) 12/12/2013 08:01 INR 3.56 INR (0.80 - 1.10) Source: [facility] [employer] Document Id: [id number] documented in this encounter Plan of Treatment Upcoming Encounters Date Type Specialty Care Team Description 06/22/2022 Appointment Laboratory Medicine Rusty Vee M.D. 200 [place] [phone] 06/22/2022 Diagnostic Pulmonary Medicine Rusty Vee M.D. [address] [place] [phone] 06/22/2022 Diagnostic Pulmonary Medicine Rusty Vee M.D. 200 [place] [phone] 06/22/2022 Appointment Radiology Rusty Vee M.D. [address] [place] [phone] 06/23/2022 Clinical Communication Admitting/Central Scheduling 06/28/2022 Appointment Pulmonary Medicine Rusty Vee M.D. [address] [place] [phone] 06/28/2022 Appointment Pulmonary Medicine Rusty Vee M.D. [address] [place] [phone] documented as of this encounter Procedures Procedure Name Priority Date/Time Associated Comments Diagnosis PROTHROMBIN TIME Routine 12/12/2013 8:01 AM Resul ts for this (PT), P CDT procedure are i n the results section. documented in this encounter Results (ABNORMAL) PT (Prothrombin Time) with INR (12/12/2013 8:01 AM CDT) [facility] Method Time Signature Prothrombin 33.0 SECONDS POWERCHART Time, P INR 3.56 (H) 0.80 - 1.10 POWERCHART INR Comment: Recommended INR for prophylaxis/treatmen t of Venous Thrombosis, Pulmonary Embolism, Myocardial Infarction, and Embolism from Atrial Fibrillation is 2.0- 3.0 (Standard Therapy) Recommended INR for Mechanical Heart Tjeal ves and recurrent Systemic Embolism is 2.5-3.5 (Intensive Therapy) Specimen (Source) Anatomical Collection Method Collection Time Re ceived Time Location / / Volume Laterality Blood 12/12/2013 8:01 AM CDT Tasha Henriquez M.D. LAB BLOOD ADD-ON Performing Organization Address City/State/ZIP Code Phon e Number POWERCHART documented in this encounter Visit Diagnoses Not on filedocumented in this encounter
--- OUTSIDE RECORDS SUMMARY | 2022-05-25 21:10 | XMS_ITS | Encounter Summary ---
:1975 Author Organization [facility] Address [address] [place] [address] Care Team Providers Name Role Phone Unavailable Primary Care Provider Unavailable Encounter Details Date Type Department Care Team Description 03/27/2014 Hospital Encounter HX [facility] Marsha Henriquez M.D. 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 FLUORIDE, SODIUM, Apply 1 application 0 3 12/31/2019 DENTAL topically 2 (two) times a day. documented as of this encounter Miscellaneous Notes Miscellaneous - Khadar Medina R.N. - 03/27/2014 1:41 PM CDT Anticoagulation Patient [...] darya BURGESS JM KHADAR Mae RN - 03/27/2014 13:41 CDT KHADAR MEDINA [...] days 5mg Mon/Wed, 2.5mg all other days Total Weekly Warfarin [...] : 09/05/2013 CDT KHADAR MEDINA RN - 03/27/2014 13:41 CDT Changes / Problems Changes/Problems Since Last Visit : None Been Scheduled For : None Missed Coumadin Doses : None Change In Intake : None Change In Medication : None Have You Had : None Plans to Travel : No KHADAR MEDINA RN - 03/27/2014 13:41 CDT Source: [facility] [employer] Document Id: [id number] CDT!119 Miscellaneous - Khadar Medina R.N. - 03/27/2014 10:40 AM CDT Results Notification From: KHADAR MEDINA RN ( Anticoagulation Nurse) To: Anticoagulation Nurse; Sent: 03/27/2014 10:40:42 CDT Show up: 03/27/2014 10:41:00 CDT Subject: Results Notification Results: Date Result Name Value Ref Range 03/27/2014 07:53 PT 36.3 second(s) (8.7 - 11.8) 03/27/2014 07:53 INR 3.2 INR (0.9 - 1.1) Source: [facility] POWERCHART Document Id: [id number] documented in this encounter Plan of Treatment Upcoming Encounters Date Type Specialty Care Team Description 06/22/2022 Appointment Laboratory Medicine Rusty Vee M.D. [address] [place] [phone] 06/22/2022 Diagnostic Pulmonary Medicine Rusty Vee M.D. [address] [place] [phone] 06/22/2022 Diagnostic Pulmonary Medicine Rusty Vee M.D. [address] [place] [phone] 06/22/2022 Appointment Radiology Rusty Vee M.D. [address] [place] [phone] 06/23/2022 Clinical Communication Admitting/Central Scheduling 06/28/2022 Appointment Pulmonary Medicine Rusty Vee M.D. [address] [place] [phone] 06/28/2022 Appointment Pulmonary Medicine Rusty Vee M.D. [address] [place] [phone] documented as of this encounter Procedures Procedure Name Priority Date/Time Associated Comments Diagnosis PROTHROMBIN TIME Routine 03/27/2014 7:53 AM Resul ts for this (PT), P CDT procedure are i n the results section. documented in this encounter Results (ABNORMAL) PT (Prothrombin Time) with INR (03/27/2014 7:53 AM CDT) [facility] Method Time Signature Prothrombin 36.3 (H) 8.7 [...]
--- OUTSIDE RECORDS SUMMARY | 2022-05-25 21:10 | XMS_ITS | Encounter Summary ---
:1975 Author Organization [facility] Address [address] [place] [address] Care Team Providers Name Role Phone Unavailable Primary Care Provider Unavailable Encounter Details Date Type Department Care Team Description 05/22/[address] 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 200 [place] [phone] 06/22/2022 Diagnostic Pulmonary Medicine Rusty Vee M.D. [address] [place] [phone] 06/22/2022 Diagnostic Pulmonary Medicine Rusty Vee M.D. [address] [place] [phone] 06/22/2022 Appointment Radiology Rusty Vee M.D. [address] [place] [phone] 06/23/2022 Clinical Communication Admitting/Central Scheduling 06/28/2022 Appointment Pulmonary Medicine Rusty Vee M.D. [address] [place] [phone] 06/28/2022 Appointment Pulmonary Medicine Rusty Vee M.D. [address] [place] [phone] documented as of this encounter Procedures Procedure Name Priority Date/Time Associated Comments Diagnosis PROTHROMBIN TIME Routine 05/22/2013 4:18 PM Resul ts for this (PT), P MANAGER PARKING procedure are i n the results section. documented in this encounter Results PT (Prothrombin Time) with INR (05/22/2013 4:18 PM MANAGER PARKING) P athologist Signature INR 2.00 [facility] Specimen (Source) Anatomical Collection Method Collection Time Re ceived Time Location / / Volume Laterality 05/22/2013 4:18 PM MANAGER PARKING Historical Provider LAB BLOOD ADD-ON Performing Organization Address City/State/ZIP Code Phon e Number [facility] documented in this encounter Visit Diagnoses Not on filedocumented in this encounter
--- OUTSIDE RECORDS SUMMARY | 2022-05-25 21:10 | XMS_ITS | Encounter Summary ---
:1975 Author Organization [facility] Address [address] [place] [address] Care Team Providers Name Role Phone Unavailable Primary Care Provider Unavailable Encounter Details Date Type Department Care Team Description 03/10/2014 Hospital Encounter HX [facility] Marsha Henriquez M.D. 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 FLUORIDE, SODIUM, Apply 1 application 0 3 12/31/2019 DENTAL topically 2 (two) times a day. documented as of this encounter Miscellaneous Notes Miscellaneous - Mima Campo R.N. - 03/10/2014 10:18 AM CDT Anticoagulation Patient Intake Anticoagulation Patient Intake Entered On: 03/10/2014 10:19 CDT Performed On: 03/10/2014 10:18 CDT by MIMA CAMPO RN Plan INR goal range : 2.0 - 3.0 Duration of Therapy : Lifelong Tablet Size : 5 mg MIMA CAMPO RN - 03/10/2014 10:18 CDT Anticoagulation [...] weeks Two weeks Plan completed by : MIMA Vidal RN - 03/10/2014 10:18 CDT MIMA CAMPO RN - 03/10/2014 10:18 CDT MIMA CAMPO - 03/10/2014 10:18 CDT MIMA CAMPO RN - 03/10/2014 10:18 CDT Date : [...] a long time, no bleeding now left ctg for Fabiola,call if changes Recommend Recheck : Other: 5 weeks Other: 5 weeks Other: 03/10/2014 Other: 03/20/14 Plan completed by : MIMA Pradhan RN - 03/10/2014 10:18 CDT MIMA CAMPO RN - 03/10/2014 10:18 CDT MIMA CAMPON - 03/10/2014 10:18 CDT MIMA CAMPO RN - 03/10/2014 10:18 CDT Anticoagulation Assessment / History Visit : Phone management Plan of Care Date : 01/29/2008 CDT Primary Physician Anticoagulation : TASHA HENRIQUEZ MD 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 : DVT Lower, Other: Deep Phlebitis-Leg NEC CHADS2 Score Date : 09/05/2013 CDT MIMA CAMPO RN - 03/10/2014 10:18 CDT Source: [facility] [employer] Document Id: [id number] CDT!92 Miscellaneous - Mima Campo RMichaelNMichael - 03/10/2014 9:23 AM CDT Results Notification From: MIMA CAMPO RN ( Anticoagulation Nurse) To: Anticoagulation Nurse; Sent: 03/10/2014 09:23:37 CDT Show up: 03/10/2014 09:24:00 CDT Subject: Results Notification Results: Date Result Name Value Ref Range 03/10/2014 09:06 PT 35.5 second(s) (8.7 - 11.8) 03/10/2014 09:06 INR 3.1 INR (0.9 - 1.1) Source: [facility] POWERCHART Document Id: [id number] Electronically signed by Lay, [facility] Regulatory Affairs Director [id number] at 11/22/2016 12:30 PM CDT documented in this encounter Plan of Treatment Upcoming Encounters Date Type Specialty Care Team Description 06/22/2022 Appointment Laboratory Medicine Rusty Vee M.D. [address] [place] [phone] 06/22/2022 Diagnostic Pulmonary Medicine Rusty Vee M.D. [address] [place] [phone] 06/22/2022 Diagnostic Pulmonary Medicine Rusty Vee M.D. [address] [place] [phone] 06/22/2022 Appointment Radiology Rusty Vee M.D. [address] [place] [phone] 06/23/2022 Clinical Communication Admitting/Central Scheduling 06/28/2022 Appointment Pulmonary Medicine Rusty Vee M.D. [address] [place] [phone] 06/28/2022 Appointment Pulmonary Medicine Rusty Vee M.D. [address] [place] [phone] documented as of this encounter Procedures Procedure Name Priority Date/Time Associated Comments Diagnosis PROTHROMBIN TIME Routine 03/10/2014 9:06 AM Resul ts for this (PT), P CDT procedure are i n the results section. documented in this encounter Results (ABNORMAL) PT (Prothrombin Time) with INR (03/10/2014 9:06 AM CDT) [facility] Method Time Signature Prothrombin 35.5 (H) [...]
--- OUTSIDE RECORDS SUMMARY | 2022-05-25 21:10 | XMS_ITS | Encounter Summary ---
:1975 Author Organization [facility] Address [address] [place] [address] Care Team Providers Name Role Phone Unavailable Primary Care Provider Unavailable Encounter Details Date Type Department Care Team Description 10/03/2013 Hospital Encounter HX [facility] Marsha Henriquez M.D. 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 FLUORIDE, SODIUM, Apply 1 application 0 3 12/31/2019 DENTAL topically 2 (two) times a day. documented as of this encounter Miscellaneous Notes Miscellaneous - Meli Campo, R.N. - 10/03/2013 2:45 PM CDT 03 October 2013 DORITA SHEFFIELD [address] 433 [facility] [id number] Dear DORITA SHEFFIELD, Your INR today was: [...] each day: SUN: 06/27 MON: 1 TUE: 06/27 WED: 1 THUR: 06/27 FRI: 1 SAT: 06/27 Your next INR appointment is scheduled for: 5 weeks(11/07/13) INRs drawn after 4:00PM might not be reported to the patient until the following day. If you have questions regarding any of the above information or feel the information is not accurateplease call [phone] or ext. [phone]. [facility] in [place] INR Clinic staff: Antonia Mcclellan, RN; Fina Peres, RN; Eliana Farooq, RN; Eliana Myers, RN; Ermelinda Casas, RN; Meli Campo, RN; Love Medina, RN Sincerely, MELI CAMPO Electronic Signature Electronically Signed By: MELI CAMPO RN On: 03 October 2013 This document has images extracted. Source: [facility] POWERCHART Document Id: [id number] Electronically signed by Lay [facility] Longwall Foreman [id number] at 11/22/2016 10:15 AM CDT Meli Miles R.N. - 10/03/2013 2:43 PM CDT General Message Document Contains Addenda Addendum by DESHAWN ASTORGA on 07 October 2013 13:31:40 CDT scheduled From: MELI ACMPO RN ( Anticoagulation Nurse) To: Internal Medicine Supervisor [place]; Sent: 10/03/2013 14:43:44 CDT Subject: General Message Please schedule on lab schedule for Jonathan Sotelo 11/07/13 Source: [facility] POWERCHART Document Id: [id number] Electronically signed by Lay, [facility] Longwall Foreman [id number] at 11/22/2016 10:15 AM CDT Miscellaneous - Meli Campo RMichaelNMichael - 10/03/2013 2:38 PM CDT Anticoagulation Patient Intake Anticoagulation Patient Intake Entered On: 10/03/2013 14:41 CDT Performed On: 10/03/2013 14:38 CDT by MELI CAMOP RN Plan INR goal range : 2.0 [...] CAMPO RN - 10/03/2013 14:38 CDT Source: [facility] POWERCHART Document Id: [id number] CDT!40 documented in this encounter Plan of Treatment Upcoming Encounters Date Type Specialty Care Team Description 06/22/2022 Appointment Laboratory Medicine Rusty Vee M.D. [address] [place] [phone] 06/22/2022 Diagnostic Pulmonary Medicine Rusty Vee M.D. [address] [place] [address] [phone] 06/22/2022 Diagnostic Pulmonary Medicine Rusty Vee M.D. [address] [place] [address] [phone] 06/22/2022 Appointment Radiology Rusty Vee M.D. [address] [place] [phone] 06/23/2022 Clinical Communication Admitting/Central Scheduling 06/28/2022 Appointment Pulmonary Medicine Rusty Vee M.D. [address] [place] [address] [phone] 06/28/2022 Appointment Pulmonary Medicine Rusty Vee M.D. [address] [place] [address] [phone] documented as of this encounter Procedures Procedure Name Priority Date/Time Associated Comments Diagnosis PROTHROMBIN TIME Routine 10/03/2013 8:00 AM Resul ts for this (PT), P CDT procedure are i n the results section. documented in this encounter Results (ABNORMAL) PT (Prothrombin Time) with INR (10/03/2013 8:00 AM CDT) [facility] Method Time Signature Prothrombin 25.6 (H) [...]
--- OUTSIDE RECORDS SUMMARY | 2022-05-25 21:10 | XMS_ITS | Encounter Summary ---
:1975 Author Organization [facility] Address [address] [place] [address] Care Team Providers Name Role Phone Unavailable Primary Care Provider Unavailable Encounter Details Date Type Department Care Team Description 04/18/2013 - Hospital Encounter [facility] Socorro August 12/15/2013 SRBeverly Simmons, TETE, C.N.P., D.N.P. 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 [address] [place] [phone] 06/22/2022 Diagnostic Pulmonary Medicine Rusty Vee M.D. [address] [place] [phone] 06/22/2022 Diagnostic Pulmonary Medicine Rusty Vee M.D. [address] [place] [phone] 06/22/2022 Appointment Radiology Rusty Vee M.D. [address] [place] [phone] 06/23/2022 Clinical Communication Admitting/Central Scheduling 06/28/2022 Appointment Pulmonary Medicine Rusty Vee M.D. [address] [place] [phone] 06/28/2022 Appointment Pulmonary Medicine Rusty Vee M.D. [address] [place] [phone] documented as of this encounter Visit Diagnoses Not on filedocumented in this encounter
--- OUTSIDE RECORDS SUMMARY | 2022-05-25 21:10 | XMS_ITS | Encounter Summary ---
:1975 Author Organization [facility] Address [address] [place] [address] Care Team Providers Name Role Phone Unavailable Primary Care Provider Unavailable Encounter Details Date Type Department Care Team Description 06/13/2013 Hospital Encounter 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 200 [place] [phone] 06/22/2022 Diagnostic Pulmonary Medicine Rusty Vee M.D. [address] [place] [phone] 06/22/2022 Diagnostic Pulmonary Medicine Rusty Vee M.D. [address] [place] [phone] 06/22/2022 Appointment Radiology Rusty Vee M.D. [address] [place] [phone] 06/23/2022 Clinical Communication Admitting/Central Scheduling 06/28/2022 Appointment Pulmonary Medicine Rusty Vee M.D. [address] [place] [phone] 06/28/2022 Appointment Pulmonary Medicine Rusty Vee M.D. [address] [place] [phone] documented as of this encounter Visit Diagnoses Not on filedocumented in this encounter
--- OUTSIDE RECORDS SUMMARY | 2022-05-25 21:10 | XMS_ITS | Encounter Summary ---
:[address] 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 200 [place] [phone] 06/22/2022 Diagnostic Pulmonary Medicine Rusty Vee M.D. [address] [place] [address] [phone] 06/22/2022 Diagnostic Pulmonary Medicine Rusty Vee M.D. [address] [place] [phone] 06/22/2022 Appointment Radiology Rusty Vee M.D. [address] [place] [phone] 06/23/2022 Clinical Communication Admitting/Central Scheduling 06/28/2022 Appointment Pulmonary Medicine Rusty Vee M.D. [address] [place] [phone] 06/28/2022 Appointment Pulmonary Medicine Rusty Vee M.D. [address] [place] [phone] documented as of this encounter Visit Diagnoses Not on filedocumented in this encounter
--- OUTSIDE RECORDS SUMMARY | 2022-05-25 21:10 | XMS_ITS | Encounter Summary ---
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 FLUORIDE, SODIUM, Apply 1 application 0 3 12/31/2019 DENTAL topically 2 (two) times a day. documented as of this encounter Miscellaneous Notes Miscellaneous - Ermelinda Casas R.N. - 05/30/2013 8:00 AM CST [id number] Hue Bellamy Carol [address] [facility] [phone] May 30, 2013 Dear Ms. Hue Bellamy Carol: Your Lab today was: INR 2.11 05/30/2013 Your target range for your condition is: 2 - 3 You should: CONTINUE YOUR CURRENT DOSE Your Coumadin Tablet Strength should be: 5 mg Daily Dose: SUN:2.5mg MON:5mg TUE:2.5mg WED:5mg THUR:2.5mg FRI:5mg SAT:2.5mg Number of Pills to take each day: SUN:2 MON:1 TUE:2 WED:1 THUR:12 FRI:1 SAT:2 Your next lab appointment is scheduled for: 06/13/13. [facility] labs should be drawn before 3:00 PM. [facility] labs should be drawn before 4:00 PM. If you have questions regarding any of the above information or feel the information is not accurateplease call [phone] or ext. [phone]. Thank you, Ermelinda Casas [facility] in [place] INR Clinic staff: Eliana Farooq, RN; Antonia Mcclellan, RN; Eliana Myers, RN; Fina Peres, RN; Ermelinda Casas, RN; Mima Campo, ANGELINE; Love Medina, RN [facility]: [facility] RWMCHXTRANSXRTFSYS Document Id: [id number] Electronically signed by Lay [facility] Human Resources Department Supervisor [id number] at 11/21/2016 7:26 PM CDT documented in this encounter Plan of Treatment Upcoming Encounters Date Type Specialty Care Team Description 06/22/2022 Appointment Laboratory Medicine Rusty Vee M.D. [address] [place] [phone] 06/22/2022 Diagnostic Pulmonary Medicine Rusty Vee M.D. [address] [place] [phone] 06/22/2022 Diagnostic Pulmonary Medicine Rusty Vee M.D. [address] [place] [phone] 06/22/2022 Appointment Radiology Rusty Vee M.D. [address] [place] [phone] 06/23/2022 Clinical Communication Admitting/Central Scheduling 06/28/2022 Appointment Pulmonary Medicine Rusty Vee M.D. [address] [place] [phone] 06/28/2022 Appointment Pulmonary Medicine Rusty Vee M.D. [address] [place] [phone] documented as of this encounter Procedures Procedure Name Priority Date/Time Associated Comments Diagnosis PROTHROMBIN TIME Routine 05/30/2013 11:44 Results for this (PT), P AM ASPHALT DISTRIBUTOR 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 documented in this encounter Results PT (Prothrombin Time) with INR (05/30/2013 11:44 AM ASPHALT DISTRIBUTOR OPERATOR) P athologist Signature INR 2.11 [facility] Specimen (Source) Anatomical Collection Method Collection Time Re ceived Time Location / / Volume Laterality 05/30/2013 11:44 AM ASPHALT DISTRIBUTOR OPERATOR Historical Provider LAB BLOOD ADD-ON Performing Organization Address City/State/ZIP Code Phon e Number [facility] documented in this encounter Visit Diagnoses Not on filedocumented in this encounter
--- OUTSIDE RECORDS SUMMARY | 2022-05-25 21:10 | XMS_ITS | Encounter Summary ---
:1975 Author Organization [facility] Address [address] [place] [address] Care Team Providers Name Role Phone Unavailable Primary Care Provider Unavailable Encounter Details Date Type Department Care Team Description 12/26/2013 Hospital Encounter [facility] Marsha Henriquez M.D. 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 - 12/26/2013 10:14 AM CDT Anticoagulation Patient Intake Anticoagulation Patient Intake Entered On: 12/26/2013 10:17 CDT Performed On: 12/26/2013 10:14 CDT by RIVKA PERES RN Plan INR goal range : 2.0 - 3.0 Duration of Therapy : Lifelong Tablet Size : 5 mg RIVKA PERES RN - 12/26/2013 10:14 CDT Anticoagulation Management [...] PERES RN - 12/26/2013 10:14 CDT Source: [facility] [employer] Document Id: [id number] CDT!70 Miscellaneous - Sudha Holley R.N. - 12/26/2013 9:59 AM CDT Results Notification From: SUDHA ARCOS RN ( Anticoagulation Nurse) To: Anticoagulation Nurse; Sent: 12/26/2013 09:59:16 CDT Show up: 12/26/2013 10:00:00 CDT Subject: Results Notification Results: Date Result Name Value Ref Range 12/26/2013 08:00 PT 27.5 second(s) 12/26/2013 08:00 INR 2.79 INR (0.80 - 1.10) Source: [facility] [employer] Document Id: [id number] Electronically signed by Lay [facility] Latin American Studies Professor [id number] at 11/22/2016 12:47 AM CDT documented in this encounter Plan of Treatment Upcoming Encounters Date Type Specialty Care Team Description 06/22/2022 Appointment Laboratory Medicine Rusty Vee M.D. 200 [place] [phone] 06/22/2022 Diagnostic Pulmonary Medicine Rusty Vee M.D. [address] [place] [phone] 06/22/2022 Diagnostic Pulmonary Medicine Rusty Vee M.D. 200 [place] [phone] 06/22/2022 Appointment Radiology Rusty Vee M.D. [address] [place] [address] 06/23/2022 Clinical Communication Admitting/Central Scheduling 06/28/2022 Appointment Pulmonary Medicine Rusty Vee M.D. [address] [place] [address] 06/28/2022 Appointment Pulmonary Medicine Rusty Vee M.D. [address] [place] [address] documented as of this encounter Procedures Procedure Name Priority Date/Time Associated Comments Diagnosis PROTHROMBIN TIME Routine 12/26/2013 8:00 AM Resul ts for this (PT), P CDT procedure are i n the results section. documented in this encounter Results (ABNORMAL) PT (Prothrombin Time) with INR (12/26/2013 8:00 AM CDT) [facility] Method Time Signature Prothrombin 27.5 SECONDS [...]
--- OUTSIDE RECORDS SUMMARY | 2022-05-25 21:10 | XMS_ITS | Encounter Summary ---
:1975 Author Organization [facility] Address [address] [place] [address] Care Team Providers Name Role Phone Unavailable Primary Care Provider Unavailable Encounter Details Date Type Department Care Team Description 05/10/2013 Hospital Encounter [facility] Mima Malagon R.N. 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 [address] [place] [phone] 06/22/2022 Diagnostic Pulmonary Medicine Rusty Vee M.D. [address] [place] [phone] 06/22/2022 Diagnostic Pulmonary Medicine Rusty Vee M.D. [address] [place] [phone] 06/22/2022 Appointment Radiology Rusty Vee M.D. [address] [place] [phone] 06/23/2022 Clinical Communication Admitting/Central Scheduling 06/28/2022 Appointment Pulmonary Medicine Rusty Vee M.D. [address] [place] [phone] 06/28/2022 Appointment Pulmonary Medicine Rusty Vee M.D. [address] [place] [phone] documented as of this encounter Visit Diagnoses Not on filedocumented in this encounter
--- OUTSIDE RECORDS SUMMARY | 2022-05-25 21:10 | XMS_ITS | Encounter Summary ---
:1975 Author Organization [facility] Address [address] [place] [address] Care Team Providers Name Role Phone Unavailable Primary Care Provider Unavailable Encounter Details Date Type Department Care Team Description 07/11/2013 [facility]TICOAG Provider, His torical Social [...] or relatives? How often do you attend tenriism or More than 4 times per year 05/04/2022 oriental orthodox services? Do you belong to any clubs or Yes 05/04/2022 organizations such as tenriism groups, unions, fraternal or athletic groups, or [...] at Date Recorded Female 05/03/2022 7:07 PM SALES OPERATIONS documented as of this encounter Medications at Time of Discharge Medication Sig Dispensed Refills Start Date End Date multivitamin tablet Take 2 tablets by 0 3 mouth daily. FLUORIDE, SODIUM, Apply 1 application 0 3 12/31/2019 DENTAL topically 2 (two) times a day. documented as of this encounter Miscellaneous Notes Miscellaneous - Khadar Medina R.N. - 09/05/2013 11:39 AM CDT Anticoagulation Patient [...] Mae RN - 09/05/2013 11:39 CDT Source: [facility] Document Id: [id number] CDT!16 Miscellaneous - Khadar Medina RMichaelN. - 09/05/2013 11:07 AM CDT Anticoagulation Patient [...] MEDINA RN - 09/05/2013 11:07 CDT Source: [facility] POWERCHART Document Id: [id number] CDT!21 Miscellaneous - Conversion, Historical Provider Ser - 07/11/2013 8:20 AM SALES OPERATIONS [id number] Hue Bellamy Carol [address] [facility] [phone] July 11, 2013 Dear Ms. Hue Bellamy Carol: Your Lab today was: INR 2.06 07/11/2013 Your target range for your condition is: 2 - 3 You should: CONTINUE YOUR CURRENT DOSE Your Coumadin Tablet Strength should be: 5 mg Daily Dose: SUN:2.5mg MON:5mg TUE:2.5mg WED:5mg THUR:2.5mg FRI:5mg SAT:2.5mg Number of Pills to take each day: SUN:1/2 MON:1 TUE:1/2 WED:1 THUR:1/2 FRI:1 SAT:1/2 Your next lab appointment is scheduled for: 08/08/2013 at [facility]. [facility] labs should be drawn before 3:00 PM. [place] [facility] labs should be drawn before 4:00 PM. If you have questions regarding any of the above information or feel the information is not accurateplease call [phone] or ext. [phone]. Thank you, Eliana Myers [facility] in [place] INR Clinic staff: Eliana Farooq, RN; Antonia Mcclellan, RN; Eliana Myers, ANGELINE; Fina Peres, ANGELINE; Ermelinda Casas, ANGELINE; Mima Campo, ANGELINE; Khadar Medina, ANGELINE Source: [facility] RWHXTRANSXRTFSYS Document Id: [id number] documented in this encounter Plan of Treatment Upcoming Encounters Date Type Specialty Care Team Description 06/22/2022 Appointment Laboratory Medicine Rusty Vee M.D. [address] [place] [phone] 06/22/2022 Diagnostic Pulmonary Medicine Rusty Vee M.D. [address] [place] [phone] 06/22/2022 Diagnostic Pulmonary Medicine Rusty Vee M.D. [address] [place] [phone] 06/22/2022 Appointment Radiology Rusty Vee M.D. [address] [place] [phone] 06/23/2022 Clinical Communication Admitting/Central Scheduling 06/28/2022 Appointment Pulmonary Medicine Rusty Vee M.D. [address] [place] [phone] 06/28/2022 Appointment Pulmonary Medicine Rusty Vee M.D. [address] [place] [phone] documented as of this encounter Visit Diagnoses Not on filedocumented in this encounter
--- OUTSIDE RECORDS SUMMARY | 2022-05-25 21:10 | XMS_ITS | Encounter Summary ---
:1975 Author Organization [facility] Address [address] [place] [address] Care Team Providers Name Role Phone Unavailable Primary Care Provider Unavailable Encounter Details Date Type Department Care Team Description 03/20/2014 Hospital Encounter [facility] Marsha Henriquez M.D. [address] [place], [place] [address] (Wo rk) Social History [...] or relatives? How often do you attend jain or More than 4 times per year 05/04/2022 church services? 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 FLUORIDE, SODIUM, Apply 1 application 0 3 12/31/2019 DENTAL topically 2 (two) times a day. documented as of this encounter Miscellaneous Notes Miscellaneous - Khadar Medina R.N. - 03/20/2014 2:47 PM CDT Anticoagulation Patient [...] darya BURGESS JM KHADAR Mae RN - 03/20/2014 14:47 CDT KHADAR MEDINA [...] Warfarin Dose : Comment : called to Fabiola called to [...] MEDINA RN - 03/20/2014 14:47 CDT [facility] POWERCHART Document Id: [id number] CDT!109 Miscellaneous - Wali Zapata R.N. - 03/20/2014 11:31 AM CDT Results Notification From: WALI ZAPATA RN ( Anticoagulation Nurse) To: AYDE Anticoagulation Nurse; Sent: 03/20/2014 11:31:52 CDT Show up: 03/20/2014 11:32:00 CDT Subject: Results Notification Results: Date Result Name Value Ref Range 03/20/2014 08:07 PT 44.3 second(s) (8.7 - 11.8) 03/20/2014 08:07 INR 3.8 INR (0.9 - 1.1) Source: [facility] POWERCHART Document Id: [id number] Electronically signed by Lay [facility] Adjuster Piano Action [id number] at 11/22/2016 7:23 PM CDT documented in this encounter Plan of Treatment Upcoming Encounters Date Type Specialty Care Team Description 06/22/2022 Appointment Laboratory Medicine Rusty Vee M.D. [address] [place] [phone] 06/22/2022 Diagnostic Pulmonary Medicine Rusty Vee M.D. [address] [place] [phone] 06/22/2022 Diagnostic Pulmonary Medicine Rusty Vee M.D. [address] [place] [phone] 06/22/2022 Appointment Radiology Rusty Vee M.D. [address] [place] [phone] 06/23/2022 Clinical Communication Admitting/Central Scheduling 06/28/2022 Appointment Pulmonary Medicine Rusty Vee M.D. [address] [place] [phone] 06/28/2022 Appointment Pulmonary Medicine Rusty Vee M.D. [address] [place] [phone] documented as of this encounter Procedures Procedure Name Priority Date/Time Associated Comments Diagnosis PROTHROMBIN TIME Routine 03/20/2014 8:07 AM Resul ts for this (PT), P CDT procedure are i n the results section. documented in this encounter Results (ABNORMAL) PT (Prothrombin Time) with INR (03/20/2014 8:07 AM CDT) [facility] Method Time Signature Prothrombin 44.3 (H) 8.7 [...]
--- OUTSIDE RECORDS SUMMARY | 2022-05-25 21:10 | XMS_ITS | Encounter Summary ---
:1975 Author Organization [facility] Address [address] [place] [address] Care Team Providers Name Role Phone Unavailable Primary Care Provider Unavailable Encounter Details Date Type Department Care Team Description 01/30/2014 Hospital Encounter HX [facility] Marsha Henriquez M.D. 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 FLUORIDE, SODIUM, Apply 1 application 0 3 12/31/2019 DENTAL topically 2 (two) times a day. documented as of this encounter Miscellaneous Notes Miscellaneous - Khadar Medina R.N. - 01/30/2014 11:24 AM CDT Anticoagulation Patient [...] darya BURGESS JM KHADAR Mae RN - 01/30/2014 11:24 CDT KHADAR MEDINA [...] MEDINA RN - 01/30/2014 11:24 CDT Source[facility] Document Id: [id number] CDT!81 Miscellaneous - Khadar Medina R.N. - 01/30/2014 10:29 AM CDT Results Notification From: KHADAR MEDINA RN ( Anticoagulation Nurse) To: Anticoagulation Nurse; Sent: 01/30/2014 10:29:53 CDT Show up: 01/30/2014 10:30:00 CDT Subject: Results Notification Results: Date Result Name Value Ref Range 01/30/2014 08:12 PT 30.3 second(s) (8.7 - 11.8) 01/30/2014 08:12 INR 2.7 INR (0.9 - 1.1) Source: [facility] Document Id: [id number] Electronically signed by Lay [facility] Hospitals[facility] Lime Kil[place] Worker [id number] at 11/22/2016 1:39 PM CDT documented in this encounter Plan of Treatment Upcoming Encounters Date Type Specialty Care Team Description 06/22/2022 Appointment Laboratory Medicine Rusty Vee M.D. [address] [place] [phone] 06/22/2022 Diagnostic Pulmonary Medicine Rusty Vee M.D. [address] [place] [phone] 06/22/2022 Diagnostic Pulmonary Medicine Rusty Vee M.D. [address] [place] [phone] 06/22/2022 Appointment Radiology Rusty Vee M.D. [address] [place] [phone] 06/23/2022 Clinical Communication Admitting/Central Scheduling 06/28/2022 Appointment Pulmonary Medicine Rusty Vee M.D. [address] [place] [phone] 06/28/2022 Appointment Pulmonary Medicine Rusty Vee M.D. [address] [place] [phone] documented as of this encounter Procedures Procedure Name Priority Date/Time Associated Comments Diagnosis PROTHROMBIN TIME Routine 01/30/2014 8:12 AM Resul ts for this (PT), P CDT procedure are i n the results section. documented in this encounter Results (ABNORMAL) PT (Prothrombin Time) with INR (01/30/2014 8:12 AM CDT) [facility] Method Time Signature Prothrombin 30.3 (H) 8.7 [...]
--- OUTSIDE RECORDS SUMMARY | 2022-05-25 21:10 | XMS_ITS | Encounter Summary ---
:1975 Author Organization [facility] Address [address] [place] [address] Care Team Providers Name Role Phone Unavailable Primary Care Provider Unavailable Encounter Details Date Type Department Care Team Description 05/16/2013 Hospital Encounter 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 200 [place] [address] 06/22/2022 Diagnostic Pulmonary Medicine Rusty Vee M.D. [address] [place] [phone] 06/22/2022 Diagnostic Pulmonary Medicine Rusty Vee M.D. [address] [place] [phone] 06/22/2022 Appointment Radiology Rusty Vee M.D. [address] [place] [phone] 06/23/2022 Clinical Communication Admitting/Central Scheduling 06/28/2022 Appointment Pulmonary Medicine Rusty Vee M.D. [address] [place] [phone] 06/28/2022 Appointment Pulmonary Medicine Rusty Vee M.D. [address] [place] [phone] documented as of this encounter Procedures Procedure Name Priority Date/Time Associated Comments Diagnosis PROTHROMBIN TIME Routine 05/16/2013 11:06 Results for this (PT), P AM KILN STACKER procedure are i n the results section. documented in this encounter Results PT (Prothrombin Time) with INR (05/16/2013 11:06 AM KILN STACKER) P athologist Signature INR 1.88 [facility] Specimen (Source) Anatomical Collection Method Collection Time Re ceived Time Location / / Volume Laterality 05/16/2013 11:06 AM KILN STACKER Historical Provider LAB BLOOD ADD-ON Performing Organization Address City/State/ZIP Code Phon e Number [facility] documented in this encounter Visit Diagnoses Not on filedocumented in this encounter
--- OUTSIDE RECORDS SUMMARY | 2022-05-25 21:10 | XMS_ITS | Encounter Summary ---
:1975 Author Organization [facility] Address [address] [place] [address] Care Team Providers Name Role Phone Unavailable Primary Care Provider Unavailable Encounter Details Date Type Department Care Team Description 08/08/2013 Hospital Encounter [facility] ANTICOAG Provider, His torical Social [...] or relatives? How often do you attend nondenominational or More than 4 times per year 05/04/2022 methodist services? 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 INR monitoring is required to continue the consistent management of our patient. Please draw an INR on a PRN basis and fax the results to: [facility] [place] [address] Fax: Phone: Thank You for your cooperation. [facility] staff: Eliana Farooq, RN; Antonia Mcclellan, RN; Eliana Myers, RN; Fina Peres, RN; Ermelinda Casas, RN; Mima Campo, RN; Love Medina, RN Provider signature: Provider Dr. Sridhar Garibay Sincerely, ERMELINDA CASAS Electronic Signature Electronically Signed By: ERMELINDA CASAS RN On: 16 June 2014 This document has images extracted. Source: [facility] POWERCHART Document Id: [id number] documented in this encounter Plan of Treatment Upcoming Encounters Date Type Specialty Care Team Description 06/22/2022 Appointment Laboratory Medicine Rusty Vee M.D. [address] [place] [phone] 06/22/2022 Diagnostic Pulmonary Medicine Rusty Vee M.D. [address] [place] [phone] 06/22/2022 Diagnostic Pulmonary Medicine Rusty Vee M.D. [address] [place] [phone] 06/22/2022 Appointment Radiology Rusty Vee M.D. [address] [place] [phone] 06/23/2022 Clinical Communication Admitting/Central Scheduling 06/28/2022 Appointment Pulmonary Medicine Rusty Vee M.D. [address] [place] [phone] 06/28/2022 Appointment Pulmonary Medicine Rusty Vee M.D. [address] [place] [phone] documented as of this encounter Visit Diagnoses Not on filedocumented in this encounter
--- OUTSIDE RECORDS SUMMARY | 2022-05-25 21:10 | XMS_ITS | Encounter Summary ---
:1975 Author Organization [facility] Address [address] [place] [address] Care Team Providers Name Role Phone Unavailable Primary Care Provider Unavailable Encounter Details Date Type Department Care Team Description 09/02/2013 Hospital Encounter [facility] Marsha Garibay M.D. [address] [place], [place] [address] (Wo rk) Social History [...] at Date Recorded Female 05/03/2022 7:07 PM MARGARINE MAKER documented as of this encounter Medications at Time of Discharge Medication Sig Dispensed Refills Start Date End Date multivitamin tablet Take 2 tablets by 0 3 mouth daily. FLUORIDE, SODIUM, Apply 1 application 0 3 12/31/2019 DENTAL topically 2 (two) times a day. documented as of this encounter Miscellaneous Notes Telephone Encounter - Love Medina R.N. - 09/02/2013 12:00 AM CDT [id number] Last visit: 05/10/2013 BP Readings from Last 1 Encounters: 05/10/13 100/60 Hypercholesterolemia Labs: AST 31 02/19/2013 ALT 28 02/19/2013 CHOL 217 08/09/2012 TRIG 149 08/09/2012 LDL 141 08/09/2012 HDL 46 08/09/2012 Prescription approved per RN refill protocol. Follow-up in 6 months noted at 04/2013 provider visit Source: [facility] Document Id: [id number] Electronically signed by Conversion, [facility] Telemarketing Agent [id number] at 11/20/2016 4:30 PM CDT documented in this encounter Plan of Treatment Upcoming Encounters Date Type Specialty Care Team Description 06/22/2022 Appointment Laboratory Medicine Rusty Vee M.D. [address] [place] [phone] 06/22/2022 Diagnostic Pulmonary Medicine Rusty Vee M.D. [address] [place] [phone] 06/22/2022 Diagnostic Pulmonary Medicine Rusty Vee M.D. [address] [place] [phone] 06/22/2022 Appointment Radiology Rusty Vee M.D. [address] [place] [phone] 06/23/2022 Clinical Communication Admitting/Central Scheduling 06/28/2022 Appointment Pulmonary Medicine Rusty Vee M.D. [address] [place] [phone] 06/28/2022 Appointment Pulmonary Medicine Rusty Vee M.D. [address] [place] [phone] documented as of this encounter Visit Diagnoses Not on filedocumented in this encounter
--- OUTSIDE RECORDS SUMMARY | 2022-05-25 21:10 | XMS_ITS | Encounter Summary ---
:1975 Author Organization [facility] Address [address] [place] [address] Care Team Providers Name Role Phone Unavailable Primary Care Provider Unavailable Encounter Details Date Type Department Care Team Description 05/10/2013 Hospital Encounter [facility] Marsha Garibay M.D. 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 FLUORIDE, SODIUM, Apply 1 application 0 3 12/31/2019 DENTAL topically 2 (two) times a day. documented as of this encounter Progress Notes Sridhar Garibay M.D. - 05/10/2013 2:30 PM CST [id number] This office note has been dictated. Source: [facility] RWHXTRANSXRTFSYS Document Id: [id number] Electronically signed by Conversion, [facility] Apartment Coordinator [id number] at 11/21/2016 2:09 PM CDT Sridhar Garibay M.D. - 05/10/2013 2:30 PM CST [id number] CLINIC ENCOUNTER SUBJECTIVE: Patient presents today for a recheck. She has a history of heart surgery, see previous note, at [facility]. She is doing well. She is active. [...] atrioventricular canal defect status post repair at [facility] on 03/29/2013. 2. Mild elevation of creatinine. [...] improved. Sridhar Garibay M.D. ECM/st/law cc: Source: [facility] Document Id: [id number] Electronically signed by Conversion, [facility] Apartment Coordinator [id number] at 11/21/2016 2:09 PM CDT documented in this encounter Miscellaneous Notes Miscellaneous - Sridhar Garibay M.D. - 05/10/2013 2:30 PM CST [id number] 05/10/2013 Hue Medina [address] [facility] [phone] (home) : 1975 To Whom it May Concern: Ms. Hue Medina may return to work. No lifting more than 10 pounds. She was seen in our clinic today (05/10/2013). Please contact me for questions or concerns. Sincerely, [facility] [employer] [facility] [address] [facility] [address] Source: [facility] Document Id: [id number] Electronically signed by Conversion, [facility] Apartment Coordinator [id number] at 11/21/2016 2:09 PM CDT documented in this encounter Plan of Treatment Upcoming Encounters Date Type Specialty Care Team Description 06/22/2022 Appointment Laboratory Medicine Rusty Vee M.D. 200 [place] [phone] 06/22/2022 Diagnostic Pulmonary Medicine Rusty Vee M.D. 200 [place] [phone] 06/22/2022 Diagnostic Pulmonary Medicine Rusty Vee M.D. 200 [place] [phone] 06/22/2022 Appointment Radiology Rusty Vee M.D. [address] [place] [phone] 06/23/2022 Clinical Communication Admitting/Central Scheduling 06/28/2022 Appointment Pulmonary Medicine Rusty Vee M.D. [address] [place] [phone] 06/28/2022 Appointment Pulmonary Medicine Rusty Vee M.D. [address] [place] [phone] documented as of this encounter Visit Diagnoses Not on filedocumented in this encounter
--- OUTSIDE RECORDS SUMMARY | 2022-05-25 21:10 | XMS_ITS | Encounter Summary ---
:1975 Author Organization [facility] Address [address] [place] [address] Care Team Providers Name Role Phone Unavailable Primary Care Provider Unavailable Encounter Details Date Type Department Care Team Description 04/10/2014 Hospital Encounter HX [facility] Marsha Henriquez M.D. 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 documented as of this encounter Medications at [...] darya BURGESS JM SUDHA Chan RN - 04/10/2014 14:46 CDT SUDHA ARCOS [...] RN - 04/10/2014 14:46 CDT SUDHA ARCOS V RN - 04/10/2014 14:46 CDT SUDHA ARCOS RN - 04/10/2014 14:46 CDT Date : 03/20/2014 CDT 03/27/2014 CDT 04/10/2014 CDT Location of INR sample : Lab Lab Lab Type of Sample : Venous Venous Venous INR Result : 3.8 3.2 5.3 Warfarin Dose : HOLD 03/20, then 5mg Mon/Wed, 2.5mg all other days 5mg Mon/Wed, 2.5mg all other days Hold 04/10-04/11 Total [...] Score Date : 09/05/2013 CDT SUDHA ARCOS V RN - 04/10/2014 14:46 CDT Changes / Problems Changes/Problems Since Last Visit : None Been Scheduled For : None Missed Coumadin Doses : None Change In Intake : None Change In Medication : None Have You Had : None Plans to Travel : No SUDHA ARCOS V RN - 04/10/2014 14:46 CDT Source: [facility] Testive Document Id: [id number] CDT!128 [place] - Libia Hernandez LMichaelP.NMichael - 04/10/2014 11:51 AM CDT Communication Note Communication Note Entered On: 04/10/2014 11:55 CDT Performed On: 04/10/2014 11:51 CDT by LIBIA HERNANDEZ LPN Communication Subject of Note : Critical Test Result Assessment Communication Note : INR 5.3 critical lab result given to Dr. Penny in Dr. Gaxiola absence, as well as walked the informationover to the INR clinic in [facility] and gave to ANGELINE Monroy Intervention : Physician/Provider notified, Protocol initiated, Read back order, Other: also notified the INR clinic, Sudha MARCUS Name of provider notified : JOSIAS CAMPBELL MD Name of provider notified d/t : 04/10/2014 11:43 CDT LIBIA HERNANDEZ LPN - 04/10/2014 11:51 CDT Source: [facility] Document Id: [id number] CDT!7 Enriquetacelllucian - Sudha Holley R.N. - 04/10/2014 11:47 [...] 2014 11:52:09 CDT LMTC. Libia Heard from [facility] stated she will give Critical value to Linda Lemus when she comes out of the room. From: SUDHA ARCOS RN ( Anticoagulation Nurse) To: Anticoagulation Nurse; Sent: 04/10/2014 11:47:50 CDT Show up: 04/10/2014 11:48:00 CDT Subject: Results Notification Results: Date Result Name Value Ref Range 04/10/2014 08:15 PT 64.1 second(s) (8.7 - 11.8) 04/10/2014 08:15 INR 5.3 INR (0.9 - 1.1) Source: [facility] POWERCHART Document Id: [id number] documented in this encounter Plan of Treatment Upcoming Encounters Date Type Specialty Care Team Description 06/22/2022 Appointment Laboratory Medicine Rusty Vee M.D. [address] [place] [phone] 06/22/2022 Diagnostic Pulmonary Medicine Rusty Vee M.D. [address] [place] [phone] 06/22/2022 Diagnostic Pulmonary Medicine Rusty Vee M.D. [address] [place] [phone] 06/22/2022 Appointment Radiology Rusty Vee M.D. [address] [place] [phone] 06/23/2022 Clinical Communication Admitting/Central Scheduling 06/28/2022 Appointment Pulmonary Medicine Rusty Vee M.D. [address] [place] [phone] 06/28/2022 Appointment Pulmonary Medicine Rusty Vee M.D. [address] [place] [phone] documented as of this encounter Procedures Procedure Name Priority Date/Time Associated Comments Diagnosis PROTHROMBIN TIME Routine 04/10/2014 8:15 AM Resul ts for this (PT), P CDT procedure are i n the results section. documented in this encounter Results (ABNORMAL) PT (Prothrombin Time) with INR (04/10/2014 8:15 AM CDT) [facility] Method Time Signature Prothrombin 64.1 (H) [...]
--- OUTSIDE RECORDS SUMMARY | 2022-05-25 21:10 | XMS_ITS | Encounter Summary ---
:1975 Author Organization [facility] Address [address] [place] [address] Care Team Providers Name Role Phone Unavailable Primary Care Provider Unavailable Encounter Details Date Type Department Care Team Description 11/07/2013 Hospital Encounter [facility] Marsha Henriquez M.D. 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 200 [place] [phone] 06/22/2022 Diagnostic Pulmonary Medicine Rusty Vee M.D. [address] [place] [phone] 06/22/2022 Diagnostic Pulmonary Medicine Rusty Vee M.D. [address] [place] [phone] 06/22/2022 Appointment Radiology Rusty Vee M.D. [address] [place] [phone] 06/23/2022 Clinical Communication Admitting/Central Scheduling 06/28/2022 Appointment Pulmonary Medicine Rusty Vee M.D. [address] [place] [phone] 06/28/2022 Appointment Pulmonary Medicine Rusty Vee M.D. [address] [place] [phone] documented as of this encounter Procedures Procedure Name Priority Date/Time Associated Comments Diagnosis PROTHROMBIN TIME Routine 11/07/2013 8:07 AM Resul ts for this (PT), P CDT procedure are i n the results section. documented in this encounter Results (ABNORMAL) PT (Prothrombin Time) with INR (11/07/2013 8:07 AM CDT) [facility] Method Time Signature Prothrombin 29.4 [...]
--- OUTSIDE RECORDS SUMMARY | 2022-05-25 21:10 | XMS_ITS | Encounter Summary ---
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 200 [place] [address] 06/22/2022 Diagnostic Pulmonary Medicine Rusty Vee M.D. [address] [place] [phone] 06/22/2022 Diagnostic Pulmonary Medicine Rusty Vee M.D. [address] [place] [phone] 06/22/2022 Appointment Radiology Rusty Vee M.D. [address] [place] [phone] 06/23/2022 Clinical Communication Admitting/Central Scheduling 06/28/2022 Appointment Pulmonary Medicine Rusty Vee M.D. [address] [place] [phone] 06/28/2022 Appointment Pulmonary Medicine Rusty Vee M.D. [address] [place] [phone] documented as of this encounter Procedures Procedure Name Priority Date/Time Associated Comments Diagnosis PROTHROMBIN TIME Routine 05/10/2013 2:26 PM Resul ts for this (PT), P LICENSED PHYSICAL THERAPIST ASSISTANT procedure are i n the results section. HX UREA NITROGEN Routine 05/10/2013 2:19 PM Resul ts for this LICENSED PHYSICAL THERAPIST ASSISTANT procedure are i n the results section. HX AGAP Routine 05/10/2013 2:19 PM Results f or this LICENSED PHYSICAL THERAPIST ASSISTANT procedure are i n the results section. CREATININE WITH EGFR, Routine 05/10/2013 2:19 PM Results for this P LICENSED PHYSICAL THERAPIST ASSISTANT procedure are i n the results section. CREATININE WITH EGFR, Routine 05/10/2013 2:19 PM Results for this P LICENSED PHYSICAL THERAPIST ASSISTANT procedure are i n the results section. SODIUM, S/P Routine 05/10/2013 2:19 PM Results f or this LICENSED PHYSICAL THERAPIST ASSISTANT procedure are i n the results section. POTASSIUM, S/P Routine 05/10/2013 2:19 PM Results for this LICENSED PHYSICAL THERAPIST ASSISTANT procedure are i n the results section. GLUCOSE, RANDOM, S/P Routine 05/10/2013 2:19 PM R esults for this LICENSED PHYSICAL THERAPIST ASSISTANT procedure are i n the results section. CREATININE WITH EGFR, Routine 05/10/2013 2:19 PM Results for this S/P LICENSED PHYSICAL THERAPIST ASSISTANT procedure are i n the results section. CHLORIDE, S/P Routine 05/10/2013 2:19 PM Results for this LICENSED PHYSICAL THERAPIST ASSISTANT procedure are i n the results section. BICARBONATE, B/S/P Routine 05/10/2013 2:19 PM Res ults for this LICENSED PHYSICAL THERAPIST ASSISTANT procedure are i n the results section. CALCIUM, TOT, S/P Routine 05/10/2013 2:19 PM Resu lts for this LICENSED PHYSICAL THERAPIST ASSISTANT procedure are i n the results section. documented in this encounter Results PT (Prothrombin Time) with INR (05/10/2013 2:26 PM LICENSED PHYSICAL THERAPIST ASSISTANT) athologist Signature INR 1.95 [facility] Specimen (Source) Anatomical Collection Method Collection Time Re ceived Time Location / / Volume Laterality 05/10/2013 2:26 PM LICENSED PHYSICAL THERAPIST ASSISTANT Historical Provider LAB BLOOD ADD-ON Performing Organization Address City/State/ZIP Code Phon e Number [facility] Calcium, Total (05/10/2013 2:19 PM LICENSED PHYSICAL THERAPIST ASSISTANT) athologist Signature Calcium, Total, 9.2 MGDL [facility] Specimen (Source) Anatomical Collection Method Collection Time Re ceived Time Location / / Volume Laterality 05/10/2013 2:19 PM LICENSED PHYSICAL THERAPIST ASSISTANT Historical Provider LAB BLOOD ADD-ON Performing Organization Address City/State/ZIP Code Phon e Number [facility] Creatinine with Estimated GFR (MDRD), Plasma (05/10/2013 2:19 PM LICENSED PHYSICAL THERAPIST ASSISTANT) athologist Signature eGFR 64 [id number] [facility] [place] [facility] Specimen (Source) Anatomical Collection Method Collection Time Re ceived Time Location / / Volume Laterality 05/10/2013 2:19 PM LICENSED PHYSICAL THERAPIST ASSISTANT Historical Provider LAB BLOOD ADD-ON Performing Organization Address City/State/ZIP Code Phon e Number [facility] Creatinine with Estimated GFR (MDRD), Plasma (05/10/2013 2:19 PM LICENSED PHYSICAL THERAPIST ASSISTANT) athologist Signature HXeGFR (MDRD) 53 [id number] [facility] Specimen (Source) Anatomical Collection Method Collection Time Re ceived Time Location / / Volume Laterality 05/10/2013 2:19 PM LICENSED PHYSICAL THERAPIST ASSISTANT Historical Provider LAB BLOOD ADD-ON Performing Organization Address City/State/ZIP Code Phon e Number [facility] Creatinine with Estimated GFR (MDRD) (05/10/2013 2:19 PM LICENSED PHYSICAL THERAPIST ASSISTANT) P athologist Signature Creatinine 1.14 MGDL [facility] Specimen (Source) Anatomical Collection Method Collection Time Re ceived Time Location / / Volume Laterality 05/10/2013 2:19 PM LICENSED PHYSICAL THERAPIST ASSISTANT Historical Provider LAB BLOOD ADD-ON Performing Organization Address City/State/ZIP Code Phon e Number [facility] HX UREA NITROGEN (05/10/2013 2:19 PM LICENSED PHYSICAL THERAPIST ASSISTANT) P athologist Signature Urea Nitrogen, 22 MGDL [facility] 24 HR, [facility] Specimen (Source) Anatomical Collection Method Collection Time Re ceived Time Location / / Volume Laterality 05/10/2013 2:19 PM LICENSED PHYSICAL THERAPIST ASSISTANT Historical Provider LAB HISTORICAL ORDERS Performing Organization Address City/State/ZIP Code Phon e Number [facility] Glucose, Random (05/10/2013 2:19 PM LICENSED PHYSICAL THERAPIST ASSISTANT) P athologist Signature Glucose 93 MGDL [facility] Specimen (Source) Anatomical Collection Method Collection Time Re ceived Time Location / / Volume Laterality 05/10/2013 2:19 PM LICENSED PHYSICAL THERAPIST ASSISTANT Narrative [facility] - 08/23/19 14 10:53 PM LICENSED PHYSICAL THERAPIST ASSISTANT Non Fasting Historical Provider LAB BLOOD TROPONIN Performing Organization Address City/State/ZIP Code Phon e Number [facility] HX AGAP (05/10/2013 2:19 PM LICENSED PHYSICAL THERAPIST ASSISTANT) P athologist Signature Anion Gap 10 MMOLL [facility] Specimen (Source) Anatomical Collection Method Collection Time Re ceived Time Location / / Volume Laterality 05/10/2013 2:19 PM LICENSED PHYSICAL THERAPIST ASSISTANT Historical Provider LAB HISTORICAL ORDERS Performing Organization Address City/State/ZIP Code Phon e Number [facility] Bicarbonate (05/10/2013 2:19 PM LICENSED PHYSICAL THERAPIST ASSISTANT) P athologist Signature HX Carbon 30 MMOLL [facility] Specimen (Source) Anatomical Collection Method Collection Time Re ceived Time Location / / Volume Laterality 05/10/2013 2:19 PM LICENSED PHYSICAL THERAPIST ASSISTANT Historical Provider LAB BLOOD ADD-ON Performing Organization Address City/State/ZIP Code Phon e Number [facility] Chloride (05/10/2013 2:19 PM LICENSED PHYSICAL THERAPIST ASSISTANT) P athologist Signature Chloride, S 104 MMOLL [facility] Specimen (Source) Anatomical Collection Method Collection Time Re ceived Time Location / / Volume Laterality 05/10/2013 2:19 PM LICENSED PHYSICAL THERAPIST ASSISTANT Historical Provider LAB BLOOD ADD-ON Performing Organization Address City/State/ZIP Code Phon e Number [facility] Potassium, S (05/10/2013 2:19 PM LICENSED PHYSICAL THERAPIST ASSISTANT) P athologist Signature Potassium, S 4.7 MMOLL [facility] Specimen (Source) Anatomical Collection Method Collection Time Re ceived Time Location / / Volume Laterality 05/10/2013 2:19 PM LICENSED PHYSICAL THERAPIST ASSISTANT Historical Provider LAB BLOOD ADD-ON Performing Organization Address City/State/ZIP Code Phon e Number [facility] Sodium (05/10/2013 2:19 PM LICENSED PHYSICAL THERAPIST ASSISTANT) P athologist Signature Sodium, S 143 MMOLL [facility] Specimen (Source) Anatomical Collection Method Collection Time Re ceived Time Location / / Volume Laterality 05/10/2013 2:19 PM LICENSED PHYSICAL THERAPIST ASSISTANT Historical Provider LAB BLOOD ADD-ON Performing Organization Address City/State/ZIP Code Phon e Number [facility] documented in this encounter Visit Diagnoses Not on filedocumented in this encounter
--- OUTSIDE RECORDS SUMMARY | 2022-05-25 21:10 | XMS_ITS | Encounter Summary ---
:[address] [facility] Address [address] [place] [address] Care Team Providers Name Role Phone Unavailable Primary Care Provider Unavailable Encounter Details Date Type Department Care Team Description 03/06/2014 Hospital Encounter HX [facility] Marsha Henriquez M.D. 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 FLUORIDE, SODIUM, Apply 1 application 0 3 12/31/2019 DENTAL topically 2 (two) times a day. documented as of this encounter Miscellaneous Notes Miscellaneous - Khadar Medina R.N. - 03/06/2014 12:07 PM CDT Anticoagulation Patient [...] mon/wed/fri and 2.5mg all other days 5mg Mon/Mon/Mon, [...] : KHADAR Lovelace RN - 03/06/2014 12:07 CDT KHADAR MEDINA [...] MEDINA RN - 03/06/2014 12:09 CDT [facility] Document Id: [id number] CDT![id number] Miscellaneous - Khadar Medina R.N. - 03/06/2014 11:57 AM CDT Results Notification From: KHADAR MEDINA RN ( Anticoagulation Nurse) To: Anticoagulation Nurse; Sent: 03/06/2014 11:57:48 CDT Show up: 03/06/2014 11:58:00 CDT Subject: Results Notification Results: Date Result Name Value Ref Range 03/06/2014 08:02 INR 4.8 INR (0.9 - 1.1) [facility] Document Id: [id number] Electronically signed by Conversion, [facility] Shift Leader [id number] at 11/22/2016 12:30 PM CDT Miscellaneous - Khadar Medina RKareem. - 03/06/2014 11:39 AM CDT Results Notification From: KHADAR MEDINA RN ( Anticoagulation Nurse) To: Anticoagulation Nurse; Sent: 03/06/2014 11:39:23 CDT Show up: 03/06/2014 11:40:00 CDT Subject: Results Notification Results: Date Result Name Value Ref Range 03/06/2014 08:02 PT 56.9 second(s) (8.7 - 11.8) [facility] Document Id: [id number] Electronically signed by Conversion, [facility] Shift Leader [id number] at 11/22/2016 12:30 PM CDT documented in this encounter Plan of Treatment Upcoming Encounters Date Type Specialty Care Team Description 06/22/2022 Appointment Laboratory Medicine Rusty Vee M.D. [address] [place] [phone] 06/22/2022 Diagnostic Pulmonary Medicine Rusty Vee M.D. [address] [place] [phone] 06/22/2022 Diagnostic Pulmonary Medicine Rusty Vee M.D. [address] [place] [phone] 06/22/2022 Appointment Radiology Rusty Vee M.D. [address] [place] [phone] 06/23/2022 Clinical Communication Admitting/Central Scheduling 06/28/2022 Appointment Pulmonary Medicine Rusty Vee M.D. [address] [place] [address] [place] [phone] 06/28/2022 Appointment Pulmonary Medicine Rusty Vee M.D. [address] [place] [phone] documented as of this encounter Procedures Procedure Name Priority Date/Time Associated Comments Diagnosis PROTHROMBIN TIME Routine 03/06/2014 8:02 AM Resul ts for this (PT), P CDT procedure are i n the results section. documented in this encounter Results (ABNORMAL) PT (Prothrombin Time) with INR (03/06/2014 8:02 AM CDT) [facility] Method Time Signature Prothrombin 56.9 (H) 8.7 [...]
--- OUTSIDE RECORDS SUMMARY | 2022-05-25 21:10 | XMS_ITS | Encounter Summary ---
:1975 Author Organization [facility] Address [address] [place] [address] Care Team Providers Name Role Phone Unavailable Primary Care Provider Unavailable Encounter Details Date Type Department Care Team Description 09/03/2013 Hospital Encounter HX [facility] Marsha Garibay M.D. 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 FLUORIDE, SODIUM, Apply 1 application 0 3 12/31/2019 DENTAL topically 2 (two) times a day. documented as of this encounter Miscellaneous Notes Miscellaneous - Sridhar Garibay M.D. - 09/03/2013 12:00 AM CDT [id number] Hue Medina [address] [facility] [phone] Oct, 2013 Dear Hue Medina, APPOINTMENT REMINDER: Our record indicates that it is time for you to be seen for an office visit with Sridhar Garibay M.D. You may call our office at [phone] to schedule an appointment for your six (6) month follow-up visit. Please disregard this notice if you have already made an appointment. Sincerely, [facility] Source: [facility] Document Id: [id number] documented in this encounter Plan of Treatment Upcoming Encounters Date Type Specialty Care Team Description 06/22/2022 Appointment Laboratory Medicine Rusty Vee M.D. [address] [place] [phone] 06/22/2022 Diagnostic Pulmonary Medicine Rusty Vee M.D. [address] [place] [phone] 06/22/2022 Diagnostic Pulmonary Medicine Rusty Vee M.D. [address] [place] [phone] 06/22/2022 Appointment Radiology Rusty Vee M.D. [address] [place] [phone] 06/23/2022 Clinical Communication Admitting/Central Scheduling 06/28/2022 Appointment Pulmonary Medicine Rusty Vee M.D. [address] [place] [phone] 06/28/2022 Appointment Pulmonary Medicine Rusty Vee M.D. [address] [place] [phone] documented as of this encounter Visit Diagnoses Not on filedocumented in this encounter
--- OUTSIDE RECORDS SUMMARY | 2022-05-25 21:11 | XMS_ITS | Encounter Summary ---
:1975 Author Organization [facility] Address [address] [place] [address] Care Team Providers Name Role Phone Unavailable Primary Care Provider Unavailable Encounter Details Date Type Department Care Team Description 04/17/2013 Hospital Encounter HX [facility] Parag Brasher M.D. 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 [address] [place] [phone] 06/22/2022 Diagnostic Pulmonary Medicine Rusty Vee M.D. [address] [place] [phone] 06/22/2022 Diagnostic Pulmonary Medicine Rusty Vee M.D. [address] [place] [phone] 06/22/2022 Appointment Radiology Rusty Vee M.D. [address] [place] [phone] 06/23/2022 Clinical Communication Admitting/Central Scheduling 06/28/2022 Appointment Pulmonary Medicine Rusty Vee M.D. [address] [place] [phone] 06/28/2022 Appointment Pulmonary Medicine Rusty Vee M.D. [address] [place] [phone] documented as of this encounter Procedures Procedure [...] called to Sienna Peres (I NR clinic [place]) at 10:20_, by Olive Manzo MLT_. Critical [...]
--- OUTSIDE RECORDS SUMMARY | 2022-05-25 21:11 | XMS_ITS | Encounter Summary ---
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 200 [place] [phone] 06/22/2022 Diagnostic Pulmonary Medicine Rusty Vee M.D. [address] [place] [phone] 06/22/2022 Diagnostic Pulmonary Medicine Rusty Vee M.D. [address] [place] [phone] 06/22/2022 Appointment Radiology Rusty Vee M.D. [address] [place] [phone] 06/23/2022 Clinical Communication Admitting/Central Scheduling 06/28/2022 Appointment Pulmonary Medicine Rusty Vee M.D. [address] [place] [phone] 06/28/2022 Appointment Pulmonary Medicine Rusty Vee M.D. [address] [place] [phone] documented as of this encounter Visit Diagnoses Not on filedocumented in this encounter
--- OUTSIDE RECORDS SUMMARY | 2022-05-25 21:11 | XMS_ITS | Encounter Summary ---
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 [address] [place] [phone] 06/22/2022 Diagnostic Pulmonary Medicine Rusty Vee M.D. [address] [place] [phone] 06/22/2022 Diagnostic Pulmonary Medicine Rusty Vee M.D. [address] [place] [address] [phone] 06/22/2022 Appointment Radiology Rusty Vee M.D. [address] [place] [phone] 06/23/2022 Clinical Communication Admitting/Central Scheduling 06/28/2022 Appointment Pulmonary Medicine Rusty Vee M.D. [address] [place] [phone] 06/28/2022 Appointment Pulmonary Medicine Rusty Vee M.D. [address] [place] [phone] documented as of this encounter Visit Diagnoses Not on filedocumented in this encounter
--- OUTSIDE RECORDS SUMMARY | 2022-05-25 21:11 | XMS_ITS | Encounter Summary ---
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 [address] [place] [phone] 06/22/2022 Diagnostic Pulmonary Medicine Rusty Vee M.D. [address] [place] [phone] 06/22/2022 Diagnostic Pulmonary Medicine Rusty Vee M.D. [address] [place] [phone] 06/22/2022 Appointment Radiology Rusty Vee M.D. [address] [place] [phone] 06/23/2022 Clinical Communication Admitting/Central Scheduling 06/28/2022 Appointment Pulmonary Medicine Rusty Vee M.D. [address] [place] [phone] 06/28/2022 Appointment Pulmonary Medicine Rusty Vee M.D. [address] [place] [phone] documented as of this encounter Visit Diagnoses Not on filedocumented in this encounter
--- OUTSIDE RECORDS SUMMARY | 2022-05-25 21:11 | XMS_ITS | Encounter Summary ---
:1975 Author Organization [facility] Address [address] [place] [address] Care Team Providers Name Role Phone Unavailable Primary Care Provider Unavailable Encounter Details Date Type Department Care Team Description 04/26/2013 Hospital Encounter HX [facility] Juan Manuel Limon M.D. [address] [place] [phone] (Wo rk) Social History Tobacco Use [...] or relatives? How often do you attend moravian or More than 4 times per year 05/04/2022 congregational services? 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 [address] [place] [phone] 06/22/2022 Diagnostic Pulmonary Medicine Rusty Vee M.D. [address] [place] [phone] 06/22/2022 Diagnostic Pulmonary Medicine Rusty Vee M.D. [address] [place] [phone] 06/22/2022 Appointment Radiology Rusty Vee M.D. [address] [place] [phone] 06/23/2022 Clinical Communication Admitting/Central Scheduling 06/28/2022 Appointment Pulmonary Medicine Rusty Vee M.D. [address] [place] [phone] 06/28/2022 Appointment Pulmonary Medicine Rusty Vee M.D. [address] [place] [phone] documented as of this encounter Procedures Procedure Name Priority Date/Time Associated Comments Diagnosis PROTHROMBIN TIME Routine 04/26/2013 9:46 AM Resul ts for this (PT), P CDT procedure are i n the results section. documented in this encounter Results (ABNORMAL) PT (Prothrombin Time) with INR (04/26/2013 9:46 AM CDT) [facility] Method Time Signature Prothrombin 56.7 (H) 9.3 - 11.3 POWERCHART Time, P SECONDS INR 5.89 (C) 0.90 - 1.10 POWERCHART Comment: Results called to Antonia Velasquez RN ( [facility]) at 04/26/2013 10:28:20 CDT, by Chaitanya Dorantes Critical lab value read back Yes. Specimen (Source) Anatomical Collection Method Collection Time Re ceived Time Location / / Volume Laterality Blood 04/26/2013 9:46 AM CDT Sridhar Garibay M.D. LAB BLOOD ADD-ON Performing Organization Address City/State/ZIP Code Phon e Number POWERCHART documented in this encounter Visit Diagnoses Not on filedocumented in this encounter
--- OUTSIDE RECORDS SUMMARY | 2022-05-25 21:11 | XMS_ITS | Encounter Summary ---
:1975 Author Organization [facility] Address [address] [place] [address] Care Team Providers Name Role Phone Unavailable Primary Care Provider Unavailable Encounter Details Date Type Department Care Team Description 04/19/2013 Hospital Encounter HX [facility] Parag Brasher M.D. 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 [address] [place] [phone] 06/22/2022 Diagnostic Pulmonary Medicine Rusty Vee M.D. [address] [place] [phone] 06/22/2022 Diagnostic Pulmonary Medicine Rusty Vee M.D. [address] [place] [phone] 06/22/2022 Appointment Radiology Rusty Vee M.D. [address] [place] [phone] 06/23/2022 Clinical Communication Admitting/Central Scheduling 06/28/2022 Appointment Pulmonary Medicine Rusty Vee M.D. [address] [place] [phone] 06/28/2022 Appointment Pulmonary Medicine Rusty Vee M.D. [address] [place] [phone] documented as of this encounter Procedures Procedure Name Priority Date/Time Associated Comments Diagnosis PROTHROMBIN TIME Routine 04/19/2013 8:00 AM Resul ts for this (PT), P CDT procedure are i n the results section. documented in this encounter Results (ABNORMAL) PT (Prothrombin Time) with INR (04/19/2013 8:00 AM CDT) [facility] Method Time Signature Prothrombin 51.7 (H) 9.3 - 11.3 POWERCHART Time, P SECONDS INR 5.35 (C) 0.90 - 1.10 POWERCHART Comment: Results called to [facility] [id number] _, by ejs_. Critical lab value read back yes_.04/19/2013 08:38:51 CDT [id number] ejs Specimen (Source) Anatomical Collection Method Collection Time Re ceived Time Location / / Volume Laterality Blood 04/19/2013 8:00 AM CDT Sridhar Garibay M.D. LAB BLOOD ADD-ON Performing Organization Address City/State/ZIP Code Phon e Number POWERCHART documented in this encounter Visit Diagnoses Not on filedocumented in this encounter
--- OUTSIDE RECORDS SUMMARY | 2022-05-25 21:11 | XMS_ITS | Encounter Summary ---
:1975 Author Organization [facility] Address [address] [place] [address] Care Team Providers Name Role Phone Unavailable Primary Care Provider Unavailable Encounter Details Date Type Department Care Team Description 04/17/2013 Hospital Encounter [facility]X 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 200 [place] [phone] 06/22/2022 Diagnostic Pulmonary Medicine Rusty Vee M.D. [address] [place] [phone] 06/22/2022 Diagnostic Pulmonary Medicine Rusty Vee M.D. [address] [place] [phone] 06/22/2022 Appointment Radiology Rusty Vee M.D. [address] [place] [phone] 06/23/2022 Clinical Communication Admitting/Central Scheduling 06/28/2022 Appointment Pulmonary Medicine Rusty Vee M.D. [address] [place] [phone] 06/28/2022 Appointment Pulmonary Medicine Rusty Vee M.D. [address] [place] [phone] documented as of this encounter Visit Diagnoses Not on filedocumented in this encounter
--- OUTSIDE RECORDS SUMMARY | 2022-05-25 21:11 | XMS_ITS | Encounter Summary ---
:1975 Author Organization [facility] Address [address] [place] [address] Care Team Providers Name Role Phone Unavailable Primary Care Provider Unavailable Encounter Details Date Type Department Care Team Description 05/02/2013 Hospital Encounter [facility]X [facility] Parag Brasher M.D. [address] [place] [phone] (Wo rk) Social History Tobacco Use [...] at Date Recorded Female 05/03/2022 7:07 PM GIRL FRIDAY documented as of this encounter Medications at [...] Laboratory Medicine Rusty Vee M.D. [address] [place] [phone] 06/22/2022 Diagnostic Pulmonary Medicine Rusty Vee M.D. [address] [place] [phone] 06/22/2022 Diagnostic Pulmonary Medicine Rusty Vee M.D. [address] [place] [phone] 06/22/2022 Appointment Radiology Rusty Vee M.D. [address] [place] [phone] 06/23/2022 Clinical Communication Admitting/Central Scheduling 06/28/2022 Appointment Pulmonary Medicine Rusty Vee M.D. [address] [place] [phone] 06/28/2022 Appointment Pulmonary Medicine Rusty Vee M.D. [address] [place] [phone] documented as of this encounter Procedures Procedure Name Priority Date/Time Associated Comments Diagnosis PROTHROMBIN TIME Routine 05/02/2013 8:10 AM Resul ts for this (PT), P GIRL FRIDAY procedure are i n the results section. documented in this encounter Results (ABNORMAL) PT (Prothrombin Time) with INR (05/02/2013 8:10 AM GIRL FRIDAY) [facility] Method Time Signature Prothrombin 27.0 (H) 9.3 - 11.3 POWERCHART Time, P SECONDS INR 2.72 (H) 0.90 - 1.10 POWERCHART Specimen (Source) Anatomical Collection Method Collection Time Re ceived Time Location / / Volume Laterality Blood 05/02/2013 8:10 AM GIRL FRIDAY Sridhar Garibay M.D. LAB BLOOD ADD-ON Performing Organization Address City/State/ZIP Code Phon e Number POWERCHART documented in this encounter Visit Diagnoses Not on filedocumented in this encounter
--- OUTSIDE RECORDS SUMMARY | 2022-05-25 21:11 | XMS_ITS | Encounter Summary ---
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 [address] [place] [phone] 06/22/2022 Diagnostic Pulmonary Medicine Rusty Vee M.D. [address] [place] [phone] 06/22/2022 Diagnostic Pulmonary Medicine Rusty Vee M.D. [address] [place] [phone] 06/22/2022 Appointment Radiology Rusty Vee M.D. [address] [place] [phone] 06/23/2022 Clinical Communication Admitting/Central Scheduling 06/28/2022 Appointment Pulmonary Medicine Rusty Vee M.D. [address] [place] [phone] 06/28/2022 Appointment Pulmonary Medicine Rusty Vee M.D. [address] [place] [phone] documented as of this encounter Visit Diagnoses Not on filedocumented in this encounter
--- OUTSIDE RECORDS SUMMARY | 2022-05-25 21:11 | XMS_ITS | Encounter Summary ---
:1975 Author Organization [facility] Address [address] [place] [address] Care Team Providers Name Role Phone Unavailable Primary Care Provider Unavailable Encounter Details Date Type Department Care Team Description 05/06/2013 Hospital Encounter HX [facility] Renetta Cabral M.D. 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 [address] [place] [phone] 06/22/2022 Diagnostic Pulmonary Medicine Rusty Vee M.D. [address] [place] [phone] 06/22/2022 Diagnostic Pulmonary Medicine Rusty Vee M.D. [address] [place] [phone] 06/22/2022 Appointment Radiology Rusty Vee M.D. [address] [place] [phone] 06/23/2022 Clinical Communication Admitting/Central Scheduling 06/28/2022 Appointment Pulmonary Medicine Rusty Vee M.D. [address] [place] [phone] 06/28/2022 Appointment Pulmonary Medicine Rusty Vee M.D. [address] [place] [phone] documented as of this encounter Procedures Procedure Name Priority Date/Time Associated Comments Diagnosis PROTHROMBIN TIME Routine 05/06/2013 1:20 PM Resul ts for this (PT), P IMAGING SPECIALIST procedure are i n the results section. documented in this encounter Results (ABNORMAL) PT (Prothrombin Time) with INR (05/06/2013 1:20 PM IMAGING SPECIALIST) [facility] Method Time Signature Prothrombin 17.9 (H) 9.3 - 11.3 POWERCHART Time, P SECONDS INR 1.78 (H) 0.90 - 1.10 POWERCHART Specimen (Source) Anatomical Collection Method Collection Time Re ceived Time Location / / Volume Laterality Blood 05/06/2013 1:20 PM IMAGING SPECIALIST Sridhar C Mollgaard M.D. LAB BLOOD ADD-ON Performing Organization Address City/State/ZIP Code Phon e Number POWERCHART documented in this encounter Visit Diagnoses Not on filedocumented in this encounter
--- OUTSIDE RECORDS SUMMARY | 2022-05-25 21:11 | XMS_ITS | Encounter Summary ---
:1975 Author Organization [facility] Address [address] [place] [address] Care Team Providers Name Role Phone Unavailable Primary Care Provider Unavailable Encounter Details Date Type Department Care Team Description 04/22/2013 Hospital Encounter [facility]X [facility] Juan Manuel Limon M.D. 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 [address] [place] [phone] 06/22/2022 Diagnostic Pulmonary Medicine Rusty Vee M.D. [address] [place] [phone] 06/22/2022 Diagnostic Pulmonary Medicine Rusty Vee M.D. [address] [place] [phone] 06/22/2022 Appointment Radiology Rusty Vee M.D. [address] [place] [phone] 06/23/2022 Clinical Communication Admitting/Central Scheduling 06/28/2022 Appointment Pulmonary Medicine Rusty Vee M.D. [address] [place] [phone] 06/28/2022 Appointment Pulmonary Rusty Mattson M.D. [address] [place] [phone] documented as of this encounter Procedures Procedure Name Priority Date/Time Associated Comments Diagnosis PROTHROMBIN TIME Routine 04/22/2013 9:12 AM Resul ts for this (PT), P CDT procedure are i n the results section. documented in this encounter Results (ABNORMAL) PT (Prothrombin Time) with INR (04/22/2013 9:12 AM CDT) [facility] Method Time Signature Prothrombin 16.3 (H) 9.3 - 11.3 POWERCHART Time, P SECONDS INR 1.61 (H) 0.90 - 1.10 POWERCHART Specimen (Source) Anatomical Collection Method Collection Time Re ceived Time Location / / Volume Laterality Blood 04/22/2013 9:12 AM CDT Sridhar C Mollgaard M.D. LAB BLOOD ADD-ON Performing Organization Address City/State/ZIP Code Phon e Number POWERCHART documented in this encounter Visit Diagnoses Not on filedocumented in this encounter
--- OUTSIDE RECORDS SUMMARY | 2022-05-25 21:11 | XMS_ITS | Encounter Summary ---
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 200 [place] [phone] 06/22/2022 Diagnostic Pulmonary Medicine Rusty Vee M.D. [address] [place] [phone] 06/22/2022 Diagnostic Pulmonary Medicine Rusty Vee M.D. [address] [place] [phone] 06/22/2022 Appointment Radiology Rusty Vee M.D. [address] [place] [phone] 06/23/2022 Clinical Communication Admitting/Central Scheduling 06/28/2022 Appointment Pulmonary Medicine Rusty Vee M.D. [address] [place] [phone] 06/28/2022 Appointment Pulmonary Medicine Rusty Vee M.D. [address] [place] [phone] documented as of this encounter Visit Diagnoses Not on filedocumented in this encounter
--- OUTSIDE RECORDS SUMMARY | 2022-05-25 21:11 | XMS_ITS | Encounter Summary ---
:1975 Author Organization [facility] Address [address] [place] [address] Care Team Providers Name Role Phone Unavailable Primary Care Provider Unavailable Encounter Details Date Type Department Care Team Description 04/12/2013 Hospital Encounter HX [facility] Marsha Garibay M.D. [address] [place], [place] [address] (Wo rk) Social History [...] or relatives? How often do you attend yazdanism or More than 4 times per year 05/04/2022 latter day services? 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 FLUORIDE, SODIUM, Apply 1 application 0 3 12/31/2019 DENTAL topically 2 (two) times a day. documented as of this encounter Progress Notes Sridhar Garibay M.D. - 04/12/2013 3:10 PM CDT [id number] Quick Note: Please call mother with results. Her creatinine is a little elevated. It could be due to the lasix which she stopped. Please have her recheck bmp before I see her in one month. Source: [facility] Document Id: [id number] Electronically signed by Conversion, [facility] [employer] First Officer [id number] at 11/21/2016 7:53 PM CDT Shruti Raman L.P.N. - 04/12/2013 3:10 PM CDT [id number] Hue Medina is a 38 year old female. Patient received: FLUZONE INJECTION Patient Questionaire: Did you receive a flu vaccine last year? I have a fever or feel ill today? No I have an allergy to eggs, gelatin or thimerosal? No I have had a reaction to the flu vaccine the past? No I have had Guillain-Kingston syndrome? No I have a Latex Allergy? No VIS information given Source: [facility] Document Id: [id number] Electronically signed by Conversion, [facility] [employer] First Officer [id number] at 11/21/2016 7:53 PM CDT Sridhar Garibay M.D. - 04/12/2013 3:10 PM CDT [id number] This office note has been dictated. Source: [facility] Document Id: [id number] Electronically signed by Conversion, [facility] [employer] First Officer [id number] at 11/21/2016 7:53 PM CDT Sridhar Garibay M.D. - 04/12/2013 3:10 PM CDT [id number] CLINIC ENCOUNTER SUBJECTIVE: Patient presents today for followup after surgery at [facility]. I saw her and noted a history [...] stop. She also got a letter from [facility] about her mild elevation of her TSH. [...] atrioventricular canal defect status post repair at [facility] on 03/29/2013. 2. History of mild elevation [...] to. Chart was reviewed back to 11/08/2011. Gabby Pérez/st/law cc: Source: [facility] Document Id: [id number] documented in this encounter Plan of Treatment Upcoming Encounters Date Type Specialty Care Team Description 06/22/2022 Appointment Laboratory Medicine Rusty Vee M.D. [address] [place] [phone] 06/22/2022 Diagnostic Pulmonary Medicine Rusty Vee M.D. [address] [place] [phone] 06/22/2022 Diagnostic Pulmonary Medicine Rusty Vee M.D. [address] [place] [phone] 06/22/2022 Appointment Radiology Rusty Vee M.D. [address] [place] [phone] 06/23/2022 Clinical Communication Admitting/Central Scheduling 06/28/2022 Appointment Pulmonary Rusty Mattson M.D. [address] [place] [phone] 06/28/2022 Appointment Pulmonary Medicine Rusty Vee M.D. [address] [place] [address], [place] [phone] documented as of this encounter Procedures Procedure [...] P athologist Signature Calcium, Total, 10.[address] [facility] Specimen (Source) Anatomical Collection Method Collection Time Re ceived Time Location / / Volume Laterality 04/12/2013 4:29 PM CDT Historical Provider LAB BLOOD ADD-ON Performing Organization Address City/State/ZIP Code Phon e Number [facility] Creatinine with Estimated GFR (MDRD), Plasma (04/12/2013 4:29 PM CDT) P athologist Signature eGFR 55 [id number] [facility] Specimen (Source) Anatomical Collection Method Collection Time Re ceived Time Location / / Volume Laterality 04/12/2013 4:29 PM CDT Historical Provider LAB BLOOD ADD-ON Performing Organization Address City/State/ZIP Code Phon e Number [facility] Creatinine with Estimated GFR (MDRD), Plasma (04/12/2013 4:29 PM CDT) P athologist Signature HXeGFR (MDRD) 46 [id number] [facility] Specimen (Source) Anatomical Collection Method Collection Time Re ceived Time Location / / Volume Laterality 04/12/2013 4:29 PM CDT Historical Provider LAB BLOOD ADD-ON Performing Organization Address City/State/ZIP Code Phon e Number [facility] Creatinine with Estimated GFR (MDRD) (04/12/2013 4:29 PM CDT) P athologist Signature Creatinine 1.30 MGDL [facility] Specimen (Source) Anatomical Collection Method Collection Time Re ceived Time Location / / Volume Laterality 04/12/2013 4:29 PM CDT Historical Provider LAB BLOOD ADD-ON Performing Organization Address City/State/ZIP Code Phon e Number [facility] HX UREA NITROGEN (04/12/2013 4:29 PM CDT) P athologist Signature Urea Nitrogen, 20 MGDL [facility] 24 HR, [facility] Specimen (Source) Anatomical Collection Method Collection Time Re ceived Time Location / / Volume Laterality 04/12/2013 4:29 PM CDT Historical Provider LAB HISTORICAL ORDERS Performing Organization Address City/State/ZIP Code Phon e Number [facility] Glucose, Random (04/12/2013 4:29 PM CDT) P athologist Signature Glucose 102 MGDL [facility] Specimen (Source) Anatomical Collection Method Collection Time Re ceived Time Location / / Volume Laterality 04/12/2013 4:29 PM CDT Historical Provider LAB BLOOD TROPONIN Performing Organization Address City/State/ZIP Code Phon e Number [facility] HX AGAP (04/12/2013 4:29 PM CDT) P athologist Signature Anion Gap 12 MMOLL [facility] Specimen (Source) Anatomical Collection Method Collection Time Re ceived Time Location / / Volume Laterality 04/12/2013 4:29 PM CDT Historical Provider LAB HISTORICAL ORDERS Performing Organization Address City/State/ZIP Code Phon e Number [facility] Bicarbonate (04/12/2013 4:29 PM CDT) P athologist Signature HX Carbon 30 MMOLL [facility] Specimen (Source) Anatomical Collection Method Collection Time Re ceived Time Location / / Volume Laterality 04/12/2013 4:29 PM CDT Historical Provider LAB BLOOD ADD-ON Performing Organization Address City/State/ZIP Code Phon e Number [facility] Chloride (04/12/2013 4:29 PM CDT) P athologist Signature Chloride, S 102 MMOLL [facility] Specimen (Source) Anatomical Collection Method Collection Time Re ceived Time Location / / Volume Laterality 04/12/2013 4:29 PM CDT Historical Provider LAB BLOOD ADD-ON Performing Organization Address City/State/ZIP Code Phon e Number [facility] Potassium, S (04/12/2013 4:29 PM CDT) P athologist Signature Potassium, S 4.7 MMOLL [facility] Specimen (Source) Anatomical Collection Method Collection Time Re ceived Time Location / / Volume Laterality 04/12/2013 4:29 PM CDT Historical Provider LAB BLOOD ADD-ON Performing Organization Address City/State/ZIP Code Phon e Number [facility] Sodium (04/12/2013 4:29 PM CDT) P athologist Signature Sodium, S 144 MMOLL [facility] Specimen (Source) Anatomical Collection Method Collection Time Re ceived Time Location / / Volume Laterality 04/12/2013 4:29 PM CDT Historical Provider LAB BLOOD ADD-ON Performing Organization Address City/State/ZIP Code Phon e Number [facility] documented in this encounter Visit Diagnoses Not on filedocumented in this encounter
--- OUTSIDE RECORDS SUMMARY | 2022-05-25 21:11 | XMS_ITS | Encounter Summary ---
:1975 Author Organization [facility] Address [address] [place] [address] Care Team Providers Name Role Phone Unavailable Primary Care Provider Unavailable Encounter Details Date Type Department Care Team Description 04/22/2013 Hospital Encounter HX [facility] Sunni Mckeon, TETE, C.N.P., D. N.P. [address] [place] [phone] (Wo rk) Social History Tobacco [...] More than 4 times per year 05/04/2022 zoroastrianism services? 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 - 04/22/2013 9:21 AM CDT General Message Document Contains Addenda Addendum by SUNNI MCKEON DNP, FNP on 22 April 2013 13:06:05 CDT noted. From: BEULAH KHALIL LPN To: SUNNI MCKEON DNP, FNP; Sent: 04/22/2013 09:21:21 CDT Subject: General Message BP 92/54 p 85 Source: [employer] Document Id: [id number] Electronically signed by [facility] Motor Vehicle Licence Examiner [id number] at 11/23/2016 4:43 AM CDT Miscellaneous - Beulah Khalil L.P.N. - 04/22/2013 9:17 AM CDT Ambulatory [...] KHALIL LPN - 04/22/2013 9:17 CDT Source: [employer] Document Id: [id number] documented in this encounter Plan of Treatment Upcoming Encounters Date Type Specialty Care Team Description 06/22/2022 Appointment Laboratory Medicine Rusty Vee M.D. [address] [place] [phone] 06/22/2022 Diagnostic Pulmonary Medicine Rusty Vee M.D. [address] [place] [phone] 06/22/2022 Diagnostic Pulmonary Medicine Rusty Vee M.D. [address] [place] [phone] 06/22/2022 Appointment Radiology Rusty Vee M.D. [address] [place] [phone] 06/23/2022 Clinical Communication Admitting/Central Scheduling 06/28/2022 Appointment Pulmonary Medicine Rusty Vee M.D. [address] [place] [phone] 06/28/2022 Appointment Pulmonary Medicine Rusty Vee M.D. [address] [place] [phone] documented as of this encounter Visit Diagnoses Not on filedocumented in this encounter
--- OUTSIDE RECORDS SUMMARY | 2022-05-25 21:11 | XMS_ITS | Encounter Summary ---
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 200 [place] [phone] 06/22/2022 Diagnostic Pulmonary Medicine Rusty eVe M.D. [address] [place] [phone] 06/22/2022 Diagnostic Pulmonary Medicine Rusty Vee M.D. [address] [place] [phone] 06/22/2022 Appointment Radiology Rusty Vee M.D. [address] [place] [phone] 06/23/2022 Clinical Communication Admitting/Central Scheduling 06/28/2022 Appointment Pulmonary Medicine Rusty Vee M.D. [address] [place] [phone] 06/28/2022 Appointment Pulmonary Medicine Rusty Vee M.D. [address] [place] [phone] documented as of this encounter Visit Diagnoses Not on filedocumented in this encounter
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
--- OUTSIDE RECORDS SUMMARY | 2022-05-25 21:11 | XMS_ITS | Encounter Summary ---
:[address] [facility] Address [address] [place] [address] Care Team Providers Name Role Phone Unavailable [...] or relatives? How often do you attend worship or More than 4 times per year 05/04/2022 anabaptist services? 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 [address] [place] [phone] 06/22/2022 Diagnostic Pulmonary Medicine Rusty Vee M.D. [address] [place] [phone] 06/22/2022 Diagnostic Pulmonary Medicine Rusty Vee M.D. [address] [place] [phone] 06/22/2022 Appointment Radiology Rusty Vee M.D. [address] [place] [phone] 06/23/2022 Clinical Communication Admitting/Central Scheduling 06/28/2022 Appointment Pulmonary Medicine Rusty Vee M.D. [address] [place] [phone] 06/28/2022 Appointment Pulmonary Medicine Rusty Vee M.D. [address] [place] [phone] documented as of this encounter Visit Diagnoses Not on filedocumented in this encounter
--- OUTSIDE RECORDS SUMMARY | 2022-05-25 21:11 | XMS_ITS | Encounter Summary ---
:1975 Author Organization [facility] Address [address] [place] [address] Care Team Providers Name Role Phone Unavailable Primary Care Provider Unavailable Encounter Details Date Type Department Care Team Description 04/26/2013 Hospital [facility] Andrea Whipple M.D. 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 FLUORIDE, SODIUM, Apply 1 application 0 3 12/31/2019 DENTAL topically 2 (two) times a day. documented as of this encounter Miscellaneous Notes Telephone Encounter - Anotnia Mcclellan - 04/26/2013 12:00 AM CDT [id number] Prescription approved per RN refill protocol. Pt currently has 5 mg tabs, unable to get needed dose with 5 mg tabs. Last visit:04/12/13 BP Readings from Last 1 Encounters: 04/12/13 86/60 Hypercholesterolemia Labs: AST 31 02/19/2013 ALT 28 02/19/2013 CHOL 217 08/09/2012 TRIG 149 08/09/2012 HDL 46 08/09/2012 LDL 141 08/09/2012 INR 5.89 04/26/2013 [facility] Document Id: [id number] Electronically signed by Conversion, [facility] Head Correction Officer [id number] at 11/21/2016 2:09 PM CDT documented in this encounter Plan of Treatment Upcoming Encounters Date Type Specialty Care Team Description 06/22/2022 Appointment Laboratory Medicine Rusty Vee M.D. [address] [place] [phone] 06/22/2022 Diagnostic Pulmonary Medicine Rusty Vee M.D. [address] [place] [phone] 06/22/2022 Diagnostic Pulmonary Medicine Rusty Vee M.D. [address] [place] [phone] 06/22/2022 Appointment Radiology Rusty Vee M.D. [address] [place] [phone] 06/23/2022 Clinical Communication Admitting/Central Scheduling 06/28/2022 Appointment Pulmonary Medicine Rusty Vee M.D. [address] [place] [phone] 06/28/2022 Appointment Pulmonary Medicine Rusty Vee M.D. [address] [place] [phone] documented as of this encounter Visit Diagnoses Not on filedocumented in this encounter
--- OUTSIDE RECORDS SUMMARY | 2022-05-25 21:11 | XMS_ITS | Encounter Summary ---
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 FLUORIDE, SODIUM, Apply 1 application 0 3 12/31/2019 DENTAL topically 2 (two) times a day. documented as of this encounter Miscellaneous Notes Miscellaneous - Eliana Farooq R.N. - 04/28/2013 9:00 AM CST [id number] Hue Medina [address] [facility] [phone] April 29, 2013 Dear Ms. Hue Bellamy [...] labs should be drawn before 3:00 PM. [facility] labs should be drawn before 4:00 PM. If you have questions regarding any of the above information or feel the information is not accurateplease call [phone] or ext. [phone]. Thank you, Eliana Farooq RN [facility] [place] [facility] staff: Eliana Farooq, ANGELINE; Antonia Mcclellan, RN; Eliana Myers, RN; Fina Peres, RN; Ermelinda Casas, RN; Mima Campo, RN; Love Medina, RN Source: [facility] RWHXTRANSXRTFSYS Document Id: [id number] documented in this encounter Plan of Treatment Upcoming Encounters Date Type Specialty Care Team Description 06/22/2022 Appointment Laboratory Medicine Rusty Vee M.D. 200 [place] [phone] 06/22/2022 Diagnostic Pulmonary Medicine Rusty Vee M.D. 200 [place] [phone] 06/22/2022 Diagnostic Pulmonary Medicine Rusty Vee M.D. 200 [place] [phone] 06/22/2022 Appointment Radiology Rusty Vee M.D. [address] [place] [phone] 06/23/2022 Clinical Communication Admitting/Central Scheduling 06/28/2022 Appointment Pulmonary Medicine Rusty Vee M.D. 200 [place] [phone] 06/28/2022 Appointment Pulmonary Medicine Rusty Vee M.D. [address] [place] [phone] documented as of this encounter Procedures Procedure Name Priority Date/Time Associated Comments Diagnosis PROTHROMBIN TIME Routine 04/28/2013 10:57 Results for this (PT), P AM POLE LIFT 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 documented in this encounter Results PT (Prothrombin Time) with INR (04/28/2013 10:57 AM POLE LIFT OPERATOR) P athologist Signature INR 2.12 [facility] Specimen (Source) Anatomical Collection Method Collection Time Re ceived Time Location / / Volume Laterality 04/28/2013 10:57 AM POLE LIFT OPERATOR Historical Provider LAB BLOOD ADD-ON Performing Organization Address City/State/ZIP Code Phon e Number [facility] documented in this encounter Visit Diagnoses Not on filedocumented in this encounter
--- OUTSIDE RECORDS SUMMARY | 2022-05-25 21:11 | XMS_ITS | Encounter Summary ---
:1975 Author Organization [facility] Address [address] [place] [address] Care Team Providers Name Role Phone Unavailable Primary Care Provider Unavailable Encounter Details Date Type Department Care Team Description 04/19/[address] 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 200 [place] [phone] 06/22/2022 Diagnostic Pulmonary Medicine Rusty Vee M.D. [address] [place] [phone] 06/22/2022 Diagnostic Pulmonary Medicine Rusty Vee M.D. [address] [place] [phone] 06/22/2022 Appointment Radiology Rusty Vee M.D. [address] [place] [phone] 06/23/2022 Clinical Communication Admitting/Central Scheduling 06/28/2022 Appointment Pulmonary Medicine Rusty Vee M.D. [address] [place] [phone] 06/28/2022 Appointment Pulmonary Medicine Rusty Vee M.D. [address] [place] [phone] documented as of this encounter Visit Diagnoses Not on filedocumented in this encounter
--- OUTSIDE RECORDS SUMMARY | 2022-05-25 21:11 | XMS_ITS | Encounter Summary ---
:1975 Author Organization [facility] Address [address] [place] [address] Care Team Providers Name Role Phone Unavailable Primary Care Provider Unavailable Encounter Details Date Type Department Care Team Description 04/25/2013 Hospital Encounter [facility] Juan Manuel Limon M.D. 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 [address] [place] [phone] 06/22/2022 Diagnostic Pulmonary Medicine Rusty Vee M.D. [address] [place] [phone] 06/22/2022 Diagnostic Pulmonary Medicine Rusty Vee M.D. [address] [place] [phone] 06/22/2022 Appointment Radiology Rusty Vee M.D. [address] [place] [phone] 06/23/2022 Clinical Communication Admitting/Central Scheduling 06/28/2022 Appointment Pulmonary Medicine Rusty Vee M.D. [address] [place] [phone] 06/28/2022 Appointment Pulmonary Medicine Rusty Vee M.D. [address] [place] [phone] documented as of this encounter Procedures Procedure Name Priority Date/Time Associated Comments Diagnosis PROTHROMBIN TIME Routine 04/25/2013 9:55 AM Resul ts for this (PT), P CDT procedure are i n the results section. documented in this encounter Results (ABNORMAL) PT (Prothrombin Time) with INR (04/25/2013 9:55 AM CDT) [facility] Method Time Signature Prothrombin 54.4 (H) 9.3 - 11.3 POWERCHART Time, P SECONDS INR 5.64 (C) 0.90 - 1.10 POWERCHART Comment: Results called to Harvey De La O ([facility]) at 1140_, by Olive Manzo_. [...]
--- OUTSIDE RECORDS SUMMARY | 2022-05-25 21:11 | XMS_ITS | Encounter Summary ---
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 200 [place] [phone] 06/22/2022 Diagnostic Pulmonary Medicine Rusty Vee M.D. [address] [place] [phone] 06/22/2022 Diagnostic Pulmonary Medicine Rusty Vee M.D. [address] [place] [phone] 06/22/2022 Appointment Radiology Rusty Vee M.D. [address] [place] [phone] 06/23/2022 Clinical Communication Admitting/Central Scheduling 06/28/2022 Appointment Pulmonary Medicine Rusty Vee M.D. [address] [place] [phone] 06/28/2022 Appointment Pulmonary Medicine Rusty Vee M.D. [address] [place] [phone] documented as of this encounter Visit Diagnoses Not on filedocumented in this encounter
--- OUTSIDE RECORDS SUMMARY | 2022-05-25 21:11 | XMS_ITS | Encounter Summary ---
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 [address] [place] [phone] 06/22/2022 Diagnostic Pulmonary Medicine Rusty Vee M.D. [address] [place] [phone] 06/22/2022 Diagnostic Pulmonary Medicine Rusty Vee M.D. [address] [place] [address] [phone] 06/22/2022 Appointment Radiology Rusty Vee M.D. [address] [place] [phone] 06/23/2022 Clinical Communication Admitting/Central Scheduling 06/28/2022 Appointment Pulmonary Medicine Rusty Vee M.D. [address] [place] [phone] 06/28/2022 Appointment Pulmonary Medicine Rusty Vee M.D. [address] [place] [phone] documented as of this encounter Visit Diagnoses Not on filedocumented in this encounter
--- OUTSIDE RECORDS SUMMARY | 2022-05-25 21:11 | XMS_ITS | Encounter Summary ---
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 [address] [place] [phone] 06/22/2022 Diagnostic Pulmonary Medicine Rusty Vee M.D. [address] [place] [phone] 06/22/2022 Diagnostic Pulmonary Medicine Rusty Vee M.D. [address] [place] [phone] 06/22/2022 Appointment Radiology Rusty Vee M.D. [address] [place] [phone] 06/23/2022 Clinical Communication Admitting/Central Scheduling 06/28/2022 Appointment Pulmonary Medicine Rusty Vee M.D. [address] [place] [phone] 06/28/2022 Appointment Pulmonary Medicine Rusty Vee M.D. [address] [place] [phone] documented as of this encounter Visit Diagnoses Not on filedocumented in this encounter
--- OUTSIDE RECORDS SUMMARY | 2022-05-25 21:12 | XMS_ITS | Encounter Summary ---
:1975 Author Organization [facility] Address [address] [place] [address] Care Team Providers Name Role Phone Unavailable Primary Care Provider Unavailable Encounter Details Date Type Department Care Team Description 04/10/2013 Hospital Encounter [facility] Jose Manuel Flowers III, M.D. [address] [place] [phone] (Wo rk) Social History Tobacco Use [...] or relatives? How often do you attend mormon or More than 4 times per year 05/04/2022 judaism services? 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 [address] [place] [phone] 06/22/2022 Diagnostic Pulmonary Medicine Rusty Vee M.D. [address] [place] [phone] 06/22/2022 Diagnostic Pulmonary Medicine Rusty Vee M.D. [address] [place] [phone] 06/22/2022 Appointment Radiology Rusty Vee M.D. [address] [place] [phone] 06/23/2022 Clinical Communication Admitting/Central Scheduling 06/28/2022 Appointment Pulmonary Medicine Rusty Vee M.D. [address] [place] [phone] 06/28/2022 Appointment Pulmonary Medicine Rusty Vee M.D. [address] [place] [phone] documented as of this encounter Procedures Procedure Name Priority Date/Time Associated Comments Diagnosis PROTHROMBIN TIME Routine 04/10/2013 9:20 AM Resul ts for this (PT), P CDT procedure are i n the results section. documented in this encounter Results (ABNORMAL) PT (Prothrombin Time) with INR (04/10/2013 9:20 AM CDT) [facility] Method Time Signature Prothrombin 17.9 (H) [...]
--- OUTSIDE RECORDS SUMMARY | 2022-05-25 21:12 | XMS_ITS | Encounter Summary ---
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 Pulse 55 04/04/2013 8:15 AM Value from artplus. CDT Temperature - - Respiratory Rate 18 04/04/2013 8:15 AM Value from Danie hartplus. CDT Oxygen Saturation - - Inhaled [...] Appointment Laboratory Medicine Rusty Vee M.D. [address] [place] [phone] 06/22/2022 Diagnostic Pulmonary Medicine Rusty Vee M.D. [address] [place] [phone] 06/22/2022 Diagnostic Pulmonary Medicine Rusty Vee M.D. [address] [place] [phone] 06/22/2022 Appointment Radiology Rusty Vee M.D. [address] [place] [phone] 06/23/2022 Clinical Communication Admitting/Central Scheduling 06/28/2022 Appointment Pulmonary Medicine Rusty Vee M.D. [address] [place] [phone] 06/28/2022 Appointment Pulmonary Rusty Mattson M.D. [address] [place] [phone] documented as of this encounter Procedures Procedure [...] signed by: Roderick Morales M.D. 04-Apr-2013 08:16 hCa Mallory P.A.-C., M.S. IMG DIAGNOSTIC IMAGING MS OCEDURES (ABNORMAL) Electrolyte Panel with Creatinine Dianne (04/04/2013 6:12 AM CDT) Analysis Performed At Path logist Time Signature BUN (Blood 17 6 - 21 [facility] Urea MG/DL LABORATORIES - Nitrogen), S [facility] Creatinine, 1.1 0.7 - 1.2 [facility] Dianne MG/DL LABORATORIES - [facility] HX 33 (H) 22 - 29 [facility] Bicarbonate, MMOL/L LABORATORIES - P/S [facility] Sodium, P 135 135 - 145 [facility] MMOL/L LABORATORIES - [facility] Potassium, P 4.4 3.6 - 5.2 [facility] MMOL/L LABORATORIES - [facility] Glucose, S 99 70 - 140 [facility] MG/DL LABORATORIES - [facility] Chloride, S 93 (L) 100 - 108 [facility] MMOL/L LABORATORIES - [facility] Specimen Anatomical Collection Method Collection Time Receive d Time (Source) Location / / Volume Laterality 04/04/2013 6:12 AM 3 6:12 CDT AM CDT Cha Mallory P.A.-C., M.S. LAB BLOOD ADD-ON Performing Organization Address City/State/[facility] Code Phon e Number [facility] LABORATORIES - [address] [place], [place] [address] [facility] (ABNORMAL) CBC with Differential (04/04/2013 6:12 AM CDT) [facility] gist Method Time Signature Hemoglobin 8.9 (L) 12.0 - [facility] 15.5 G/DL LABORATORIES - [facility] Hematocrit 27.8 (L) 34.9 - [facility] 44.5 % [facility] RBC Distrib 14.1 11.9 - [facility] Width 15.5 % LABORATORIES - [facility] Platelet Count 179 150 - 450 [facility] X10(9)/L LABORATORIES [facility] Leukocytes 3.2 (L) 3.5 - [facility] 10.5 LABORATORIES - X10(9)/L [facility] Neutrophils 2.17 1.70 - [facility] 7.00 LABORATORIES - X10(9)/L [facility] Lymphocytes 0.68 (L) 0.90 - [facility] 2.90 LABORATORIES - X10(9)/L [facility] Monocytes 0.31 0.30 - [facility] 0.90 LABORATORIES - X10(9)/L [facility] Eosinophils 0.03 (L) 0.05 - [facility] 0.50 LABORATORIES - X10(9)/L [facility] Basophils 0.02 0.00 - [facility] 0.30 LABORATORIES - X10(9)/L [facility] Erythrocytes 2.81 (L) 3.90 - [facility] 5.03 LABORATORIES - X10(12)/L [facility] MCV 98.9 (H) 81.6 - [facility] 98.3 [place] LABORATORIES - [facility] Specimen Anatomical Collection Method Collection Time Receive d Time (Source) Location / / Volume Laterality 04/04/2013 6:12 AM 3 6:12 CDT AM CDT Cha Mallory P.A.-C., M.S. LAB BLOOD ADD-ON Performing Organization Address City/[facility]/ZIP Code Phon e Number [facility] LABORATORIES - [address] [place], [place] [address] [facility] (ABNORMAL) PT (Prothrombin Time) with INR (04/04/2013 6:12 AM CDT) [facility] Method Time Signature Prothrombin 29.7 (H) 9.5 - [facility] Time, P 13.8 SEC LABORATORIES - [facility] INR 2.7 0.8 - 1.2 [facility] LABORATORIES - [facility] Specimen Anatomical Collection Method Collection Time Receive d Time (Source) Location / / Volume Laterality 04/04/2013 6:12 AM 3 6:12 CDT AM CDT Cha Mallory P.A.-C., M.S. LAB BLOOD ADD-ON Performing Organization Address City/State/[facility] Code Phon e Number [facility] LABORATORIES - [address] [place] [phone] [facility] (ABNORMAL) CBC without Differential (04/03/2013 4:37 AM CDT) [facility] Method Time Signature Hemoglobin 8.8 (L) 12.0 - [facility] 15.5 G/DL [facility] Hematocrit 27.8 (L) 34.9 - [facility] 44.5 % [facility] RBC Distrib 14.0 11.9 - [facility] Width 15.5 % [facility] Platelet Count 169 150 - 450 [facility] X10(9)/L [facility] Erythrocytes 2.74 (L) 3.90 - [facility] 5.03 LABORATORIES - X10(12)/L [facility] MCV 101.5 (H) 81.6 - [facility] 98.3 FL LABORATORIES - [facility] Leukocytes 3.6 3.5 - [facility] 10.5 LABORATORIES - X10(9)/L [facility] Specimen Anatomical Collection Method Collection Time Receive d Time (Source) Location / / Volume Laterality 04/03/2013 4:37 AM 3 4:37 CDT AM CDT Mai Lares APRN, Danie.N.P., D.N.P. LAB BLOOD ADD-ON Performing Organization Address City/[facility] Phon e Number [facility] LABORATORIES - [address] [place] [address] [facility] (ABNORMAL) PT (Prothrombin Time) with INR (04/03/2013 4:37 AM CDT) [facility] Method Time Signature Prothrombin 37.1 (H) 9.5 - [facility] Time, P 13.8 SEC LABORATORIES - [facility] INR 3.4 0.8 - 1.2 [facility] LABORATORIES - [facility] Specimen Anatomical Collection Method Collection Time Receive d Time (Source) Location / / Volume Laterality 04/03/2013 4:37 AM 3 4:37 CDT AM CDT Mai Lares APRN, Danie.N.P., D.N.P. LAB BLOOD ADD-ON Performing Organization Address City/[facility] Phon e Number [facility] LABORATORIES - [address] [place] [address] [facility] (ABNORMAL) Electrolyte Panel with Creatinine Dianne (04/03/2013 4:37 AM CDT) [facility] Method Time Signature BUN (Blood 14 6 - 21 [facility] Urea MG/DL LABORATORIES - Nitrogen), S [facility] Creatinine, 1.1 0.7 - 1.2 [facility] Dianne MG/DL LABORATORIES - [facility] HX 35 (H) 22 - 29 [facility] Bicarbonate, MMOL/L LABORATORIES - P/S [facility] Sodium, P 134 (L) 135 - 145 [facility] MMOL/L LABORATORIES - [facility] Potassium, P 4.0 3.6 - 5.2 [facility] MMOL/L LABORATORIES - [facility] Glucose, S 101 70 - 140 [facility] MG/DL [facility] Chloride, S 94 (L) 100 - 108 [facility] MMOL/L LABORATORIES - [facility] Specimen Anatomical Collection Method Collection Time Receive d Time (Source) Location / / Volume Laterality 04/03/2013 4:37 AM 3 4:37 CDT AM CDT Mai Lares APRN, C.N.P., D.N.P. LAB BLOOD ADD-ON Performing Organization Address City/[facility]/ZIP Code Phon e Number [facility] LABORATORIES - [address] (ABNORMAL) PT (Prothrombin Time) with INR (04/02/2013 2:26 PM CDT) [facility] gist Method Time Signature Prothrombin 39.5 (H) 9.5 - [facility] Time, P 13.8 SEC [facility] INR 3.6 0.8 - 1.2 [facility] Specimen Anatomical Collection Method Collection Time Receive d Time (Source) Location / / Volume Laterality 04/02/2013 2:26 PM 3 2:26 CDT PM CDT Usman Wynne M.D. LAB BLOOD ADD-ON Performing Organization Address City/[facility]/ZIP Code Phon e Number [facility] LABORATORIES - [address] DX Chest AP or PA and [...] effusion. Electronically signed by: Ming Santos MD. [id number] 02-Apr-2013 11:00 Micah Baez P.A.-C. IMG DIAGNOSTIC IMAGING PROCE [facility] Echocardiogram (04/02/2013 8:07 AM CDT) Anatomical Region Laterality Modality Echocardiography Specimen (Source) Anatomical Collection Method Collection Time Re ceived Time Location / / Volume Laterality 04/02/2013 8:07 AM CDT Historical Provider CV ECHO PROCEDURES (ABNORMAL) Electrolyte Panel with Creatinine Dianne (04/02/2013 6:08 AM CDT) Analysis Performed At Patho logist Time Signature Sodium, P 135 135 - 145 [facility] MMOL/L LABORATORIES - [facility] Potassium, P 4.1 3.6 - 5.2 [facility] MMOL/L LABORATORIES - [facility] Glucose, S 109 70 - 140 [facility] MG/DL LABORATORIES - [facility] Chloride, S 96 (L) 100 - 108 [facility] MMOL/L LABORATORIES - [facility] HX 34 (H) 22 - 29 [facility] Bicarbonate, MMOL/L LABORATORIES - P/S [facility] BUN (Blood 11 6 - 21 [facility] Urea MG/DL LABORATORIES - Nitrogen), S [facility] Creatinine, 1.0 0.7 - 1.2 [facility] Dianen MG/DL LABORATORIES - [facility] Specimen Anatomical Collection Method Collection Time Receive d Time (Source) Location / / Volume Laterality 04/02/2013 6:08 AM 3 6:08 CDT AM CDT Tom Gonzales APRN C.N.P., M.S.N., R.N. LAB BLOOD ADD -ON Performing Organization Address City/State/ZIP Code Phon e Number [facility] LABORATORIES - [address] [place], [place] [address] [facility] (ABNORMAL) CBC without Differential (04/02/2013 6:08 AM CDT) [facility] Method Time Signature Hemoglobin 8.8 (L) 12.0 - [facility] 15.5 G/DL LABORATORIES - [facility] Hematocrit 27.7 (L) 34.9 - [facility] 44.5 % LABORATORIES - [facility] RBC Distrib 14.2 11.9 - [facility] Width 15.5 % LABORATORIES - [facility] Platelet Count 123 (L) 150 - 450 [facility] X10(9)/L LABORATORIES - [facility] Leukocytes 4.0 3.5 - [facility] 10.5 LABORATORIES - X10(9)/L [facility] Erythrocytes 2.75 (L) 3.90 - [facility] 5.03 LABORATORIES - X10(12)/L [facility] MCV 100.7 (H) 81.6 - [facility] 98.3 [place] LABORATORIES [facility] Specimen Anatomical Collection Method Collection Time Receive d Time (Source) Location / / Volume Laterality 04/02/2013 6:08 AM 3 6:08 CDT AM CDT Danie Zuñiga APRN.N.Frankie., M.S.N., R.N. LAB BLOOD ADD -ON Performing Organization Address City/[facility] Phon e Number [facility] LABORATORIES - [address] [place] [phone] [facility] (ABNORMAL) PT (Prothrombin Time) with INR (04/02/2013 6:08 AM CDT) [facility] Method Time Signature Prothrombin 36.1 (H) 9.5 - [facility] Time, P 13.8 SEC LABORATORIES - [facility] INR 3.3 0.8 - 1.2 [facility] LABORATORIES - [facility] Specimen Anatomical Collection Method Collection Time Receive d Time (Source) Location / / Volume Laterality 04/02/2013 6:08 AM 3 6:08 CDT AM CDT Danie Zuñiga APRN.N.P., M.S.N., R.N. LAB BLOOD ADD -ON Performing Organization Address City/[facility] Code Phon e Number [facility] LABORATORIES - [address] [place] [address] [facility] (ABNORMAL) Magnesium (04/01/2013 4:03 AM CDT) [facility] Signature Magnesium, S 1.5 (L) 1.7 - 2.3 [facility] MG/DL LABORATORIES - [facility] Specimen Anatomical Collection Method Collection Time Receive d Time (Source) Location / / Volume Laterality 04/01/2013 4:03 AM 3 4:03 CDT AM CDT Usman Wynne M.D. LAB BLOOD ADD-ON Performing Organization Address City/[facility]/ZIP Code Phon e Number [facility] LABORATORIES - [address] [place], [place] [address] [facility] (ABNORMAL) PT (Prothrombin Time) with INR (04/01/2013 4:03 AM CDT) [facility] Method Time Signature Prothrombin 20.0 (H) 9.5 - [facility] Time, P 13.8 SEC LABORATORIES - [facility] INR 1.8 0.8 - 1.2 [facility] - [facility] Specimen Anatomical Collection Method Collection Time Receive d Time (Source) Location / / Volume Laterality 04/01/2013 4:03 AM 3 4:03 CDT AM CDT Usman Wynne M.D. LAB BLOOD ADD-ON Performing Organization Address City/[facility] Code Phon e Number [facility] LABORATORIES - [address] [place] [phone] [facility] (ABNORMAL) Electrolyte (Chem 4) Panel (04/01/2013 4:03 AM CDT) [facility] Method Time Signature Sodium, S 136 135 - 145 [facility] MMOL/L [facility] Potassium, S 4.5 3.6 - 5.2 [facility] MMOL/L [facility] Creatinine 1.1 0.6 - 1.1 [facility] MG/DL [facility] eGFR 55 (L) >60 [facility] Non-Black/Afric ML/MIN/BSA LABORATORIES - an Stateless [facility] eGFR-Black/Afri >60 >60 [facility] can Stateless ML/MIN/BSA LABORATORIES [facility] BUN (Blood Urea 14 6 - 21 [facility] Nitrogen), S MG/DL [facility] Anion Gap 9 7 - 15 [facility] Glucose, S 133 70 - 140 [facility] MG/DL [facility] Chloride, S 96 (L) 100 - 108 [facility] MMOL/L [facility] HX Bicarbonate, 31 (H) 22 - 29 [facility] P/S MMOL/L LABORATORIES - [facility] Specimen Anatomical Collection Method Collection Time Receive d Time (Source) Location / / Volume Laterality 04/01/2013 4:03 AM 3 4:03 CDT AM CDT Usman Wynne M.D. LAB BLOOD ADD-ON Performing Organization Address City/[facility]/ZIP Code Phon e Number [facility] LABORATORIES - [address] [place] [address] [facility] (ABNORMAL) CBC without Differential (04/01/2013 4:03 AM CDT) [facility] gist Method Time Signature Erythrocytes 2.74 (L) 3.90 - [facility] 5.03 LABORATORIES - X10(12)/L [facility] MCV 100.7 (H) 81.6 - [facility] 98.3 [place] LABORATORIES - [facility] Leukocytes 6.0 3.5 - [facility] 10.5 LABORATORIES - X10(9)/L [facility] Hemoglobin 8.8 (L) 12.0 - [facility] 15.5 G/DL LABORATORIES - [facility] Hematocrit 27.6 (L) 34.9 - [facility] 44.5 % [facility] - [facility] RBC Distrib 14.2 11.9 - [facility] Width 15.5 % LABORATORIES - [facility] Platelet Count 96 (L) 150 - 450 [facility] X10(9)/L [facility] - [facility] Specimen Anatomical Collection Method Collection Time Receive d Time (Source) Location / / Volume Laterality 04/01/2013 4:03 AM 3 4:03 CDT AM CDT Usman Wynne M.D. LAB BLOOD ADD-ON Performing Organization Address City/State/ZIP Code Phon e Number [facility] LABORATORIES - [address] [place] [address] [facility] DX Chest Portable 1 View (03/31/2013 6:44 [...] with Creatinine Dianne (03/31/2013 6:11 AM CDT) P athologist Signature Sodium, P 133 (L) 135 - 145 [facility] MMOL/L [facility] Comment: [facility] Potassium, P 4.0 3.6 - 5.2 MMOL/L [facility] Comment: [facility] Creatinine, Dianne 1.2 0.7 - 1.2 MG/DL [facility] Comment: [facility] Glucose, S 144 (H) 70 - 140 MG/DL [facility] [place] BORATORIES [facility] Comment: [facility] BUN (Blood Urea Nitrogen), S 15 6 - 21 MG/DL [facility] Comment: [facility] HX Bicarbonate, P/S 28 22 - 29 MMOL/L [facility] Comment: [facility] Chloride, S 99 (L) 100 - 108 MMOL/L [facility] Comment: [facility] Specimen Anatomical Collection Method Collection Time Receive d Time (Source) Location / / Volume Laterality 03/31/2013 6:11 AM 3 6:11 CDT AM CDT Narrative [facility] - 03/31/2013 6:[address] [facility] Jacki Figueroa P.A.-C. LAB BLOOD ADD-ON Performing Organization Address City/State/ZIP Code Phon e Number [facility] LABORATORIES - [address] [place] [phone] [facility] (ABNORMAL) PT (Prothrombin Time) with INR (03/31/2013 6:11 AM CDT) [facility] gist Method Time Signature Prothrombin 15.0 (H) 9.5 - [facility] Time, P 13.8 SEC [facility] Comment: [facility] INR 1.3 0.8 - 1.2 [facility] LABORATO URI[facility] - [facility] Comment: [facility] Specimen Anatomical Collection Method Collection Time Receive d Time (Source) Location / / Volume Laterality 03/31/2013 6:11 AM 3 6:11 CDT AM CDT Narrative [facility] - 03/31/2013 6:[address] [facility] Jacki Figueroa P.A.-C. LAB BLOOD ADD-ON Performing Organization Address City/[facility]/ZIP Code Phon e Number [facility] - [address] [place] [phone] [facility] (ABNORMAL) Magnesium (03/31/2013 6:11 AM CDT) Analysis Performed At Path logist Time Signature Magnesium, S 1.5 (L) 1.7 - 2.3 [facility] MG/DL [facility] Comment: [facility] Specimen Anatomical Collection Method Collection Time Receive d Time (Source) Location / / Volume Laterality 03/31/2013 6:11 AM 3 6:11 CDT AM CDT Narrative [facility] - 03/31/2013 7:[address] [facility] Jacki Figueroa P.A.-C. LAB BLOOD ADD-ON Performing Organization Address City/State/ZIP Code Phon e Number [facility] - [address] [place] [address] [facility] (ABNORMAL) CBC without Differential (03/31/2013 6:11 AM CDT) [facility] Method Time Signature Erythrocytes 2.82 (L) 3.90 - [facility] 5.03 LABORATORIES - X10(12)/L [facility] Comment: CVC MCV 102.1 (H) 81.6 - 98.3 [place] [facility] Comment: [facility] Leukocytes 8.5 3.5 - 10.5 X10(9)/L [facility] Comment: [facility] Hemoglobin 9.2 (L) 12.0 - 15.5 G/DL [facility] [place] Comment: [facility] Hematocrit 28.8 (L) 34.9 - 44.5 % [facility] Comment: [facility] RBC Distrib Width 14.3 11.9 - 15.5 % [facility] Comment: [facility] Platelet Count 97 (L) 150 - 450 X10(9)/L [facility] LINIC [facility] Comment: [facility] Specimen Anatomical Collection Method Collection Time Receive d Time (Source) Location / / Volume Laterality 03/31/2013 6:11 AM 3 6:11 CDT AM CDT Narrative [facility] - 03/31/2013 6:[address] [facility] Jacki Figueroa P.A.-C. LAB BLOOD ADD-ON Performing Organization Address City/[facility] Code Phon e Number [facility] LABORATORIES - [address] [place] [phone] [facility] Glucose, POCT (03/30/2013 6:07 AM CDT) [facility] Method Time Signature Glucose, POCT, 126 70 - 140 [facility] B MG/DL LABORATORIES - [facility] Sample Site, ARTLINE [facility] Blood Gas, LABORATORIES - POCT [facility] Specimen Anatomical Collection Method Collection Time Receive d Time (Source) Location / / Volume Laterality 03/30/2013 6:07 AM 3 6:07 CDT AM CDT Historical Provider LAB POCT ORDERABLES-MANUAL Performing Organization Address City/[facility] Phon e Number [facility] LABORATORIES - [address] [place] [phone] [facility] DX Chest Portable 1 View (03/30/2013 4:58 [...] MD. [id number] 30-Mar-2013 06:04 Jacki Figueroa P.A.-C. IMG DIAGNOSTIC IMAGING PROCE [facility] (ABNORMAL) CBC without Differential (03/30/2013 3:35 AM CDT) [facility] Method Time Signature Hemoglobin 10.3 (L) 12.0 - [facility] 15.5 G/DL LABORATORIES [facility] Hematocrit 31.6 (L) 34.9 - [facility] 44.5 % [facility] RBC Distrib 14.0 11.9 - [facility] Width 15.5 % [facility] Platelet Count 105 (L) 150 - 450 [facility] X10(9)/L LABORATORIES [facility] Leukocytes 6.4 3.5 - [facility] 10.5 LABORATORIES - X10(9)/L [facility] Erythrocytes 3.20 (L) 3.90 - [facility] 5.03 LABORATORIES - X10(12)/L [facility] MCV 98.8 (H) 81.6 - [facility] 98.3 FL [facility] Specimen Anatomical Collection Method Collection Time Receive d Time (Source) Location / / Volume Laterality 03/30/2013 3:35 AM 3 3:35 CDT AM CDT Usman Wynne M.D. LAB BLOOD ADD-ON Performing Organization Address City/State/ZIP Code Phon e Number [facility] - [address] [place] [id number] [facility] (ABNORMAL) APTT (Activated Partial Thromboplastin Time) (03/30/2013 3:35 AM CDT) P athologist Signature APTT, P 26 (L) 28 - 38 [facility] [place] Specimen Anatomical Collection Method Collection Time Receive d Time (Source) Location / / Volume Laterality 03/30/2013 3:35 AM 3 3:35 CDT AM CDT Usman Wynne M.D. LAB BLOOD ADD-ON Performing Organization Address City/State/ZIP Code Phon e Number [facility] - [address] [id number] [facility] [facility] ([facility]NORMAL[facility] Blood Gas with Coox, Arterial (03/30/2013 3:35 AM CDT) Patholo gist Method Time Signature Arterial Art Line [facility] Sample Site [facility] FIO2 0.45 .21=AIR [facility] [place] pO2 119 (H) 80 - 100 [facility] MM HG [facility] pCO2 50 (H) 35 - 45 [facility] MM HG [facility] O2Hb 96.9 94.0 - [facility] 98.0 % [facility] COHb 1.4 <3.0 % [facility] [place] Device CFM [facility] [place] Spont. 15 [facility] breaths/min [facility] pH 7.36 7.35 - [facility] 7.45 PH [facility] Base Excess 3 (H) -2 - 2 [facility] MMOL/L [facility] HCO3 28 (H) 22 - 26 [facility] MMOL/L LAB[facility]ATORIES - [facility] Hb 10.7 (L) 12.0 - [facility] 15.5 G/DL LAB[facility]ATORIES - [facility] MetHb <1.0 <1.6 % [facility] LABORATORIES - [facility] CtO2 14.7 (L) 21.0 - [facility] 23.0 VOL LABORATORIES - % [facility] Specimen Anatomical Collection Method Collection Time Receive d Time (Source) Location / / Volume Laterality 03/30/2013 3:35 AM 3 3:35 CDT AM CDT Usman Wynne M.D. LAB BLOOD NON ADD-ON Performing Organization Address City/[facility]/ZIP Code Phon e Number [facility] LABORATORIES - [address] [place], [place] [address] [facility] PT (Prothrombin Time) with INR (03/30/2013 3:35 AM CDT) Patholo gist Method Time Signature Prothrombin 12.8 9.5 - 13.8 [facility] Time, P SEC [facility]ATORIES - [facility] INR 1.1 0.8 - 1.2 [facility] LABORATORIES - [facility] Specimen Anatomical Collection Method Collection Time Receive d Time (Source) Location / / Volume Laterality 03/30/2013 3:35 AM 3 3:35 CDT AM CDT Usman Wynne M.D. LAB BLOOD ADD-ON Performing Organization Address City/State/ZIP Code Phon e Number [facility] LABORATORIES - [address] [place], [place] [address] [facility] Electrolyte Panel with Creatinine Dianne (03/30/2013 3:35 AM CDT) P athologist Signature BUN (Blood 13 6 - 21 [facility] Urea MG/DL LABORATORIES - Nitrogen), S [facility] Sodium, P 137 135 - 145 [facility] MMOL/L [facility]ATORIES - [facility] Creatinine, 1.1 0.7 - 1.2 [facility] Dianne MG/DL LAB[facility]ATORIES - [facility] Glucose, S 137 70 - 140 [facility] MG/DL [facility]ATORIES - [facility] Potassium, P 4.2 3.6 - 5.2 [facility] MMOL/L LAB[facility]ATORIES - [facility] HX 27 22 - 29 [facility] Bicarbonate, MMOL/L LABORATORIES - P/S [facility] Chloride, S 106 100 - 108 [facility] MMOL/L [facility]ATORIES - [facility] Specimen Anatomical Collection Method Collection Time Receive d Time (Source) Location / / Volume Laterality 03/30/2013 3:35 AM 3 3:35 CDT AM CDT Usman Wynne M.D. LAB BLOOD ADD-ON Performing Organization Address City/[facility]/ZIP Code Phon e Number [facility] LABORATORIES - [address] [place], [place] [address] [facility] Glucose, POCT (03/30/2013 12:14 AM CDT) [facility] Method Time Signature Glucose, POCT, 136 70 - 140 [facility] B MG/DL [facility]ATORIES - [facility] Sample Site, ARTLINE [facility] Blood Gas, LABORATORIES - POCT [facility] Specimen Anatomical Collection Method Collection Time Receive d Time (Source) Location / / Volume Laterality 03/30/2013 12:14 03/30/2013 AM CDT 12:14 AM CDT Historical Provider LAB POCT ORDERABLES-MANUAL Performing Organization Address City/[facility]/ZIP Code Phon e Number [facility] LABORATORIES - [address] [phone] [facility] (ABNORMAL) Blood Gas with Coox, Arterial (03/29/2013 10:20 PM CDT) [facility] Method Time Signature O2 Flow 3.0 L/MIN [facility] [place] Device NC [facility] [place] pCO2 47 (H) 35 - 45 [facility] MM HG [facility] pH 7.36 7.35 - [facility] 7.45 PH [facility] Base Excess 1 -2 - 2 [facility] MMOL/L [facility] HCO3 26 22 - 26 [facility] MMOL/L [facility] COHb 1.6 <3.0 % [facility] [place] MetHb <1.0 <1.6 % [facility] [place] CtO2 15.0 (L) 21.0 - [facility] 23.0 VOL LABORATORIES - % [facility] Spont. 16 [facility] breaths/min [facility] pO2 80 80 - 100 [facility] MM HG [facility] Hb 11.3 (L) 12.0 - [facility] 15.5 G/DL [facility] O2Hb 94.0 94.0 - [facility] 98.0 % [facility] Specimen Anatomical Collection Method Collection Time Receive d Time (Source) Location / / Volume Laterality 03/29/2013 10:20 03/29/2013 PM CDT 10:20 PM CDT Nallely Oliva R.N. LAB BLOOD NON ADD-ON Performing Organization Address City/[facility]/ZIP Code Phon e Number [facility] LABORATORIES - [address] [phone] [facility] Potassium, Blood (03/29/2013 10:20 PM CDT) P athologist Signature Potassium, B 4.4 3.6 - 5.2 [facility] MMOL/L [facility] Specimen Anatomical Collection Method Collection Time Receive d Time (Source) Location / / Volume Laterality 03/29/2013 10:20 03/29/2013 PM CDT 10:20 PM CDT Nallely Oliva R.N. LAB BLOOD NON ADD-ON Performing Organization Address City/[facility]/ZIP Code Phon e Number [facility] LABORATORIES - [address] [address] [facility] Potassium, Blood (03/29/2013 7:33 PM CDT) P athologist Signature Potassium, B 4.0 3.6 - 5.2 [facility] MMOL/L [facility] Specimen Anatomical Collection Method Collection Time Receive d Time (Source) Location / / Volume Laterality 03/29/2013 7:33 PM 3 7:33 CDT PM CDT Usman Wynne M.D. LAB BLOOD NON ADD-ON Performing Organization Address City/[facility]/ZIP Code Phon e Number [facility] - [address] [phone] [facility] (ABNORMAL) Blood Gas with Coox, Arterial (03/29/2013 7:33 PM CDT) Patholo gist Method Time Signature Device [facility] Spont. 14 [facility] breaths/min [facility] pO2 81 80 - 100 [facility] MM HG [facility] pCO2 54 (H) 35 - 45 [facility] MM HG [facility] HCO3 26 22 - 26 [facility] MMOL/L [facility] Hb 11.6 (L) 12.0 - [facility] 15.5 G/DL [facility] MetHb <1.0 <1.6 % [facility] LABORATORIES - [facility] CtO2 15.3 (L) 21.0 - [facility] 23.0 VOL LABORATORIES - % [facility] Arterial Art Line [facility] Sample Site [facility] O2 Flow 3.0 L/MIN [facility] [place] pH 7.31 (L) 7.35 - [facility] 7.45 PH [facility] Base Excess 1 -2 - 2 [facility] MMOL/L [facility] O2Hb 93.1 (L) 94.0 - [facility] 98.0 % [facility] COHb 1.6 <3.0 % [facility] [place] Specimen Anatomical Collection Method Collection Time Receive d Time (Source) Location / / Volume Laterality 03/29/2013 7:33 PM 3 7:33 CDT PM CDT Usman Wynne M.D. LAB BLOOD NON ADD-ON Performing Organization Address City/[facility]/ZIP Code Phon e Number [facility] LABORATORIES - [address] [address] [facility] (ABNORMAL) pH (03/29/2013 4:13 PM CDT) athologist Signature pH 7.28 (L) 7.35 - [facility] 7.45 PH [facility] Specimen Anatomical Collection Method Collection Time Receive d Time (Source) Location / / Volume Laterality 03/29/2013 4:13 PM 3 4:13 CDT PM CDT Jacki Figueroa P.A.-C. LAB HISTORICAL ORDERS Performing Organization Address City/[facility] Phon e Number [facility] LABORATORIES - [address] [address] [facility] Calcium, Ionized (03/29/2013 4:13 PM CDT) athologist Signature Calcium, 4.71 4.65 - [facility] Ionized, B 5.30 MG/DL [facility] Specimen Anatomical Collection Method Collection Time Receive d Time (Source) Location / / Volume Laterality 03/29/2013 4:13 PM 3 4:13 CDT PM CDT Jacki PierreCMichael LAB BLOOD NON ADD-ON Performing Organization Address City/[facility]/ZIP Code Phon e Number [facility] LABORATORIES - [address] [place] [phone] [facility] (ABNORMAL) Blood Gas with Coox, Arterial (03/29/2013 3:03 PM CDT) Patholo gist Method Time Signature pCO2 51 (H) 35 - 45 [facility] MM HG LABORATORIES [facility] pH 7.27 (L) 7.35 - [facility] 7.45 PH LABORATORIES [facility] Base Excess -3 (L) -2 - 2 [facility] MMOL/L LABORATORIES [facility] HCO3 23 22 - 26 [facility] MMOL/L LABORATORIES [facility] CtO2 13.7 (L) 21.0 - [facility] 23.0 VOL LABORATORIES - % [facility] Arterial Art Line [facility] Sample Site [facility] pO2 85 80 - 100 [facility] MM HG LABORATORIES [facility] Hb 10.4 (L) 12.0 - [facility] 15.5 G/DL [facility] O2Hb 93.5 (L) 94.0 - [facility] 98.0 % [facility] COHb 1.6 <3.0 % [facility] LABORATORIES [facility] MetHb <1.0 <1.6 % [facility] LABORATORIES [facility] Specimen Anatomical Collection Method Collection Time Receive d Time (Source) Location / / Volume Laterality 03/29/2013 3:03 PM 3 3:03 CDT PM CDT Usman Wynne M.D. LAB BLOOD NON ADD-ON Performing Organization Address City/[facility]/ZIP Code Phon e Number [facility] LABORATORIES - [address] [phone] [facility] Potassium, Blood (03/29/2013 3:03 PM CDT) P athologist Signature Potassium, B 4.5 3.6 - 5.2 [facility] MMOL/L [facility]ATORIES - [facility] Specimen Anatomical Collection Method Collection Time Receive d Time (Source) Location / / Volume Laterality 03/29/2013 3:03 PM 3 3:03 CDT PM CDT Usman Wynne M.D. LAB BLOOD NON ADD-ON Performing Organization Address City/State/ZIP Code Phon e Number [facility] LABORATORIES - [address] [phone] [facility] (ABNORMAL) Blood Gas with Coox, Arterial (03/29/2013 1:37 PM CDT) [facility] Method Time Signature Device Vent [facility] [place] Vent Mode IMPS [facility] [place] End Expiratory 5.0 CM H2O [facility] Pressure [facility] Min. 5.3 [facility] Ventilation [facility] pH 7.30 (L) 7.35 - [facility] 7.45 PH [facility] Base Excess -1 -2 - 2 [facility] MMOL/L [facility] O2Hb 96.3 94.0 - [facility] 98.0 % [facility] COHb 1.3 <3.0 % [facility] [place] Arterial Sample Art Line [facility] Site [facility] FIO2 0.40 .21=AIR [facility] [place] Spont. 12 [facility] breaths/min [facility] Mech. 4 [facility] breaths/min [facility] pO2 115 (H) 80 - 100 [facility] MM HG [facility] pCO2 51 (H) 35 - 45 [facility] MM HG [facility] HCO3 24 22 - 26 [facility] MMOL/L [facility] Hb 10.6 (L) 12.0 - [facility] 15.5 G/DL [facility] MetHb <1.0 <1.6 % [facility] [place] CtO2 14.5 (L) 21.0 - [facility] 23.0 VOL [facility] - % [facility] Specimen Anatomical Collection Method Collection Time Receive d Time (Source) Location / / Volume Laterality 03/29/2013 1:37 PM 3 1:37 CDT PM CDT Usman Wynne M.D. LAB BLOOD NON ADD-ON Performing Organization Address City/State/ZIP Code Phon e Number [facility] - [address] [phone] [facility] (ABNORMAL) Electrolyte Panel with Creatinine Dianne (03/29/2013 12:02 PM CDT) [facility] Method Time Signature Sodium, P 137 135 - 145 [facility] MMOL/L [facility] Potassium, P 4.2 3.6 - 5.2 [facility] MMOL/L [facility] Creatinine, 1.1 0.7 - 1.2 [facility] Dianne MG/DL LABORATORIES - [facility] Glucose, S 122 70 - 140 [facility] MG/DL [facility]ATORIES - [facility] BUN (Blood 13 6 - 21 [facility] Urea MG/DL LABORATORIES - Nitrogen), S [facility] HX 21 (L) 22 - 29 [facility] Bicarbonate, MMOL/L LABORATORIES - P/S [facility] Chloride, S 109 (H) 100 - 108 [facility] MMOL/L [facility]ATORIES - [facility] Specimen Anatomical Collection Method Collection Time Receive d Time (Source) Location / / Volume Laterality 03/29/2013 12:02 03/29/2013 PM CDT 12:02 PM CDT Jacki Figueroa P.A.-C. LAB BLOOD ADD-ON Performing Organization Address City/[facility] Phon e Number [facility] LABORATORIES - [address] [phone] [facility] (ABNORMAL) Thromboelastograph, Kaolin, Blood (03/29/2013 12:02 PM CDT) [facility] [employer]Care Method Time Signature R + K 10.0 4.9 - 10.8 [facility] MIN [facility]ATORIES - [facility] Angle 61.5 (L) 66.2 - 80.3 [facility] DEGREES LABORATORIES - [facility] R Time 8.0 4.0 - 9.0 [facility] MIN LABORATORIES - [facility] K Time 2.0 (H) 0.9 - 1.7 [facility] MIN [facility]IES - [facility] Maximum 58.2 55.2 - 77.0 [facility] Amplitude MM [facility]ATORIES - [facility] Ly30 0.4 0.0 - 4.8 % [facility] - [facility] Specimen Anatomical Collection Method Collection Time Receive d Time (Source) Location / / Volume Laterality 03/29/2013 12:02 03/29/2013 PM CDT 12:02 PM CDT Jacki Figueroa P.A.-C. LAB BLOOD NON ADD-ON Performing Organization Address City/State/[facility] Phon e Number [facility] LABORATORIES - [address] [phone] [facility] (ABNORMAL) CBC without Differential (03/29/2013 12:02 PM CDT) [facility] [employer] Method Time Signature Erythrocytes 3.38 (L) 3.90 - [facility] 5.03 LABORATORIES - X10(12)/L [facility] MCV 97.6 81.6 - [facility] 98.3 [place] LABORATORIES - [facility] Leukocytes 8.6 3.5 - [facility] 10.5 LABORATORIES - X10(9)/L [facility] Hemoglobin 11.0 (L) 12.0 - [facility] 15.5 G/DL [facility] - [facility] Hematocrit 33.0 (L) 34.9 - [facility] 44.5 % [facility] - [facility] RBC Distrib 13.9 11.9 - [facility] Width 15.5 % [facility] - [facility] Platelet Count 97 (L) 150 - 450 [facility] X10(9)/L [facility] - [facility] Specimen Anatomical Collection Method Collection Time Receive d Time (Source) Location / / Volume Laterality 03/29/2013 12:02 03/29/2013 PM CDT 12:02 PM CDT Jacki Figueroa P.A.-C. LAB BLOOD ADD-ON Performing Organization Address City/[facility]/ZIP Code Phon e Number [facility] LABORATORIES - [address] [phone] [facility] Fibrinogen (03/29/2013 12:01 PM CDT) P athologist Signature Fibrinogen, P 260 200 - 430 [facility] MG/DL [facility] Specimen Anatomical Collection Method Collection Time Receive d Time (Source) Location / / Volume Laterality 03/29/2013 12:01 03/29/2013 PM CDT 12:01 PM CDT Jacki PierreCMichael LAB BLOOD ADD-ON Performing Organization Address City/[facility]/ZIP Code Phon e Number [facility] LABORATORIES - [address] [place] [phone] [facility] Magnesium (03/29/2013 12:01 PM CDT) P athologist Signature Magnesium, S 2.3 1.7 - 2.3 [facility] MG/DL [facility] Specimen Anatomical Collection Method Collection Time Receive d Time (Source) Location / / Volume Laterality 03/29/2013 12:01 03/29/2013 PM CDT 12:01 PM CDT Jacki Figueroa P.A.-C. LAB BLOOD ADD-ON Performing Organization Address City/State/ZIP Code Phon e Number [facility] LABORATORIES - [address] [place], [place] [address] [facility] APTT (Activated Partial Thromboplastin Time) (03/29/2013 12:01 PM CDT) P athologist Signature APTT, P 28 28 - 38 SEC [facility] [place] Specimen Anatomical Collection Method Collection Time Receive d Time (Source) Location / / Volume Laterality 03/29/2013 12:01 03/29/2013 PM CDT 12:01 PM CDT Jacki Figueroa P.A.-C. LAB BLOOD ADD-ON Performing Organization Address City/State/ZIP Code Phon e Number [facility] LABORATORIES - [address] [place], [place] [address] [facility] (ABNORMAL) Blood Gas with Coox, Arterial (03/29/2013 12:01 PM CDT) Patholo gist Method Time Signature Arterial Sample Art Line [facility] Site [facility] FIO2 0.60 .21=AIR [facility] [place] Spont. 0 [facility] breaths/min [facility] Mech. 14 [facility] breaths/min [facility] Pulse Oximetry 100 % [facility] [place] pO2 148 (H) 80 - 100 [facility] MM HG [facility] Hb 11.2 (L) 12.0 - [facility] 15.5 G/DL [facility] O2Hb 97.2 94.0 - [facility] 98.0 % [facility] Device Vent [facility] [place] Vent Mode IMPS [facility] [place] End Expiratory 5.0 CM H2O [facility] Pressure [facility] Min. 5.6 [facility] Ventilation [facility] pCO2 43 35 - 45 [facility] MM HG [facility] pH 7.32 (L) 7.35 - [facility] 7.45 PH [facility] Base Excess -4 (L) -2 - 2 [facility] MMOL/L [facility] HCO3 21 (L) 22 - 26 [facility] MMOL/L [facility] COHb 1.2 <3.0 % [facility] [place] MetHb <1.0 <1.6 % [facility] [place] CtO2 15.6 (L) 21.0 - [facility] 23.0 VOL LABORATORIES - % [facility] Specimen Anatomical Collection Method Collection Time Receive d Time (Source) Location / / Volume Laterality 03/29/2013 12:01 03/29/2013 PM CDT 12:01 PM CDT Jacki Figueroa P.A.-C. LAB BLOOD NON ADD-ON Performing Organization Address City/State/ZIP Code Phon e Number [facility] LABORATORIES - [address] [place], [place] [address] [facility] (ABNORMAL) PT (Prothrombin Time) with INR (03/29/2013 12:01 PM CDT) [facility] Method Time Signature Prothrombin 14.0 (H) 9.5 - [facility] Time, P 13.8 SEC LABORATORIES - [facility] INR 1.2 0.8 - 1.2 [facility] LABORATORIES - [facility] Specimen Anatomical Collection Method Collection Time Receive d Time (Source) Location / / Volume Laterality 03/29/2013 12:01 03/29/2013 PM CDT 12:01 PM CDT Jacki Figueroa P.A.-C. LAB BLOOD ADD-ON Performing Organization Address City/State/ZIP Code Phon e Number [facility] LABORATORIES - [address] [place], [place] [address] [facility] Glucose, POCT (03/29/2013 11:59 AM CDT) P athologist Signature Glucose, POCT, 113 70 - 140 [facility] B MG/DL LABORATORIES - [facility] Sample Site, ARTL [facility] Blood Gas, LABORATORIES - POCT [facility] Specimen Anatomical Collection Method Collection Time Receive d Time (Source) Location / / Volume Laterality 03/29/2013 11:59 03/29/2013 AM CDT 11:59 AM CDT Historical Provider LAB POCT ORDERABLES-MANUAL Performing Organization Address City/State/ZIP Code Phon e Number [facility] - [address] [place], [place] [address] [facility] (ABNORMAL) ACT (Activated Clotting Time), POCT (03/29/2013 11:58 AM CDT) [facility] Method Time Signature Activated 146 (H) 84 [phone] 139 [facility] Clotting Time, SEC LABORATORIES - POCT [facility] Specimen Anatomical Collection Method Collection Time Receive d Time (Source) Location / / Volume Laterality 03/29/2013 11:58 03/29/2013 AM CDT 11:58 AM CDT Historical Provider LAB POCT ORDERABLES - DEVICE Performing Organization Address City/State/ZIP Code Phon e Number [facility] - [address] [place], [place] [address] [facility] DX Chest Portable 1 View (03/29/2013 11:14 [...] Prominent pulmonary vascularity. Electronically signed by: ?? Arslan ??King NERISSA ?? [id number] 29-Mar-2013 11 :20 Procedure Note [...] Arslan Jonas MD. [id number] 29-Mar-2013 11:20 [facility] PROCE JOHN Fibrinogen (03/29/2013 10:27 AM CDT) P athologist Signature Fibrinogen, P 301 200 - 430 [facility] MG/DL LABORATORIES - [facility] Comment: [place] Specimen Anatomical Collection Method Collection Time Receive d Time (Source) Location / / Volume Laterality 03/29/2013 10:27 03/29/2013 AM CDT 10:27 AM CDT Narrative [facility] - 03/29/2013 10:42 AM CDT [place] Historical Provider LAB BLOOD ADD-ON Performing Organization Address City/[facility]/ZIP Code Phon e Number [facility] - [address] [address] 05 [facility] APTT (Activated Partial Thromboplastin Time) (03/29/2013 10:27 AM CDT) P athologist Signature APTT, P 30 28 - 38 [facility] [place] Comment: [place] Specimen Anatomical Collection Method Collection Time Receive d Time (Source) Location / / Volume Laterality 03/29/2013 10:27 03/29/2013 AM CDT 10:27 AM CDT Narrative [facility] - 03/29/2013 10:42 AM CDT [place] Historical Provider LAB BLOOD ADD-ON Performing Organization Address City/[facility]/ZIP Code Phon e Number [facility] - [address] [address] 05 [facility] PT (Prothrombin Time) with INR (03/29/2013 10:27 AM CDT) Patholo gist Method Time Signature Prothrombin 13.8 9.5 - 13.8 [facility] Time, P SEC [facility] Comment: [place] INR 1.2 0.8 - 1.2 [facility] LABORATO URIEL [facility] Comment: [place] Specimen Anatomical Collection Method Collection Time Receive d Time (Source) Location / / Volume Laterality 03/29/2013 10:27 03/29/2013 AM CDT 10:27 AM CDT Narrative [facility] - 03/29/2013 10:42 AM CDT [place] Historical Provider LAB BLOOD ADD-ON Performing Organization Address City/State/ZIP Code Phon e Number [facility] - [address] [address] 05 [facility] (ABNORMAL) Platelet Count (03/29/2013 10:27 AM CDT) Analysis Performed At Patho logist Time Signature HX Platelet 83 (L) 150 - 450 [facility] Count X10(9)/L [facility] Comment: [place] Specimen Anatomical Collection Method Collection Time Receive d Time (Source) Location / / Volume Laterality 03/29/2013 10:27 03/29/2013 AM CDT 10:27 AM CDT Narrative [facility] - 03/29/2013 10:34 AM CDT [place] Historical Provider LAB BLOOD ADD-ON Performing Organization Address City/[facility]/ZIP Code Phon e Number [facility]ORATORIES - [address] [phone] 05 [facility] Glucose, Whole Blood (03/29/2013 10:15 AM CDT) P athologist Signature Glucose, S 104 70 - 140 [facility] MG/DL [facility] Comment: [place] Specimen Anatomical Collection Method Collection Time Receive d Time (Source) Location / / Volume Laterality 03/29/2013 10:15 03/29/2013 AM CDT 10:15 AM CDT Narrative [facility] - 03/29/2013 10:18 AM CDT [place] Historical Provider LAB BLOOD TROPONIN Performing Organization Address City/[facility]/ZIP Code Phon e Number [facility] - [address] [phone] 05 [facility] Calcium, Ionized (03/29/2013 10:15 AM CDT) P athologist Signature Calcium, 5.08 4.65 - [facility] Ionized, B 5.30 MG/DL [facility] Comment: [place] Specimen Anatomical Collection Method Collection Time Receive d Time (Source) Location / / Volume Laterality 03/29/2013 10:15 03/29/2013 AM CDT 10:15 AM CDT Narrative [facility] - 03/29/2013 10:18 AM CDT [place] Historical Provider LAB BLOOD NON ADD-ON Performing Organization Address City/State/ZIP Code Phon e Number [facility] LABORATORIES - [address] [place], [place] [address] 05 [facility] Potassium, Blood (03/29/2013 10:15 AM CDT) P athologist Signature Potassium, B 4.1 3.6 - 5.2 [facility] MMOL/L [facility] Comment: [place] Specimen Anatomical Collection Method Collection Time Receive d Time (Source) Location / / Volume Laterality 03/29/2013 10:15 03/29/2013 AM CDT 10:15 AM CDT Narrative [facility] - 03/29/2013 10:18 AM CDT [place] Historical Provider LAB BLOOD NON ADD-ON Performing Organization Address City/[facility]/ZIP Code Phon e Number [facility] - [address] [address] 05 [facility] (ABNORMAL) Blood Gas with Coox, Arterial (03/29/2013 10:15 AM CDT) P athologist Signature pO2 137 (H) 80 - 100 [facility] MM HG [facility] Comment: [place] pCO2 36 35 - 45 MM HG [facility] Comment: [place] O2Hb 98.2 (H) 94.0 - 98.0 % [facility] Comment: [place] COHb 1.2 <3.0 % [facility] Comment: [place] pH 7.39 7.35 - 7.45 PH [facility] Comment: [place] Base Excess -3 (L) -2 - 2 MMOL/L [facility] Comment: [place] HCO3 22 22 - 26 MMOL/L [facility] Comment: [place] Hb 10.4 (L) 12.0 - 15.5 G/DL [facility] Comment: [place] MetHb <1.0 <1.6 % [facility] Comment: [place] CtO2 14.7 (L) 21.0 - 23.0 VOL % [facility] [place] Comment: [place] Specimen Anatomical Collection Method Collection Time Receive d Time (Source) Location / / Volume Laterality 03/29/2013 10:15 03/29/2013 AM CDT 10:15 AM CDT Narrative [facility] - 03/29/2013 10:18 AM CDT [place] Historical Provider LAB BLOOD NON ADD-ON Performing Organization Address City/[facility]/ZIP Code Phon e Number [facility] - [address] [place] [phone] 05 [facility] Sodium (03/29/2013 10:15 AM CDT) athologist Signature Sodium, B 136 135 - 145 [facility] MMOL/L LABORATORIES [facility] Comment: [place] Specimen Anatomical Collection Method Collection Time Receive d Time (Source) Location / / Volume Laterality 03/29/2013 10:15 03/29/2013 AM CDT 10:15 AM CDT Narrative [facility] LABORATORIES - [facility] - 03/29/2013 10:18 AM CDT [place] Historical Provider LAB BLOOD ADD-ON Performing Organization Address City/[facility] Phon e Number [facility]IES - [address] [phone] [facility] (ABNORMAL) ACT (Activated Clotting Time), POCT (03/29/2013 10:13 AM CDT) [facility] Method Time Signature Activated 158 (H) 84 - 139 [facility] Clotting Time, SEC LABORATORIES - POCT [facility] Specimen Anatomical Collection Method Collection Time Receive d Time (Source) Location / / Volume Laterality 03/29/2013 10:13 03/29/2013 AM CDT 10:13 AM CDT Historical Provider LAB POCT ORDERABLES - DEVICE Performing Organization Address City/[facility] Phon e Number [facility]IES - [address] [phone] [facility] (ABNORMAL) ACT (Activated Clotting Time), POCT (03/29/2013 9:41 AM CDT) [facility] Method Time Signature Activated 538 (H) 84 - 139 [facility] Clotting Time, SEC LABORATORIES - POCT [facility] Specimen Anatomical Collection Method Collection Time Receive d Time (Source) Location / / Volume Laterality 03/29/2013 9:41 AM 3 9:41 CDT AM CDT Historical Provider LAB POCT ORDERABLES - DEVICE Performing Organization Address [facility] Phon e Number [facility]ATORIES - [address] [address] [facility] (ABNORMAL) Sodium (03/29/2013 9:29 AM CDT) athologist Signature Sodium, B 133 (L) 135 - 145 [facility] MMOL/L LABORATORIES - [facility] Comment: [place] 608 Specimen Anatomical Collection Method Collection Time Receive d Time (Source) Location / / Volume Laterality 03/29/2013 9:29 AM 3 9:29 CDT AM CDT Narrative [facility] - 03/29/2013 9:31 AM CDT [place] 608 Historical Provider LAB BLOOD ADD-ON Performing Organization Address City/[facility]/ZIP Code Phon e Number [facility]IES - [address] [address] 05 [facility] (ABNORMAL) Calcium, Ionized (03/29/2013 9:29 AM CDT) Patholo gist Method Time Signature Calcium, 4.06 (L) 4.65 - [facility] Ionized, B 5.30 LABORATORIES - MG/DL [facility] Comment: [place] 608 Specimen Anatomical Collection Method Collection Time Receive d Time (Source) Location / / Volume Laterality 03/29/2013 9:29 AM 3 9:29 CDT AM CDT Narrative [facility] - 03/29/2013 9:31 AM CDT [place] 608 Historical Provider LAB BLOOD NON ADD-ON Performing Organization Address City/[facility]/ZIP Code Phon e Number [facility]ATORIES - [address] [address] 05 [facility] Potassium, Blood (03/29/2013 9:29 AM CDT) P athologist Signature Potassium, B 4.6 3.6 - 5.2 [facility] MMOL/L [facility] Comment: [place] 608 Specimen Anatomical Collection Method Collection Time Receive d Time (Source) Location / / Volume Laterality 03/29/2013 9:29 AM 3 9:29 CDT AM CDT Narrative [facility] - 03/29/2013 9:31 AM CDT [place] 608 Historical Provider LAB BLOOD NON ADD-ON Performing Organization Address City/[facility]/ZIP Code Phon e Number [facility]IES - [address] [address] [facility] (ABNORMAL) Blood Gas with Coox, Arterial (03/29/2013 9:29 AM CDT) P athologist Signature pO2 256 (H) 80 - 100 [facility] MM HG [facility] Comment: [place] 608 pCO2 44 35 - 45 MM HG [facility] Comment: [place] 608 HCO3 25 22 - 26 MMOL/L [facility] Comment: [place] 608 Hb 8.6 (L) 12.0 - 15.5 G/DL [facility] Comment: [place] 608 O2Hb 98.9 (H) 94.0 - 98.0 % [facility] Comment: [place] 608 COHb 1.1 <3.0 % [facility] Comment: [place] 608 MetHb <1.0 <1.6 % [facility] Comment: [place] 608 CtO2 12.6 (L) 21.0 - 23.0 VOL % [facility] [place] Comment: [place] 608 pH 7.37 7.35 - 7.45 PH [facility] Comment: [place] 608 Base Excess 0 -2 - 2 MMOL/L [facility] Comment: [place] 608 Specimen Anatomical Collection Method Collection Time Receive d Time (Source) Location / / Volume Laterality 03/29/2013 9:29 AM 3 9:29 CDT AM CDT Narrative [facility] - 03/29/2013 9:31 AM CDT [place] 608 Historical Provider LAB BLOOD NON ADD-ON Performing Organization Address City/[facility] Phon e Number [facility] - [address] [place], [place] [address] [facility] Glucose, Whole Blood (03/29/2013 9:29 AM CDT) P athologist Signature Glucose, S 91 70 - 140 [facility] MG/DL [facility] Comment: [place] 608 Specimen Anatomical Collection Method Collection Time Receive d Time (Source) Location / / Volume Laterality 03/29/2013 9:29 AM 3 9:29 CDT AM CDT Narrative [facility] - 03/29/2013 9:31 AM CDT [place] 608 Historical Provider LAB BLOOD TROPONIN Performing Organization Address City/[facility]/ZIP Code Phon e Number [facility] LAB[facility]IES - [address] [place], [place] [address] [facility] (ABNORMAL) ACT (Activated Clotting Time), POCT (03/29/2013 9:14 AM CDT) Patholo gist Method Time Signature Activated 563 (H) 84 - 139 [facility] Clotting Time, SEC LABORATORIES - POCT [facility] Specimen Anatomical Collection Method Collection Time Receive d Time (Source) Location / / Volume Laterality 03/29/2013 9:14 AM 3 9:14 CDT AM CDT Historical Provider LAB POCT ORDERABLES - DEVICE Performing Organization Address City/[facility] Code Phon e Number [facility]IES - [address] [address] [facility] (ABNORMAL) ACT (Activated Clotting Time), POCT (03/29/2013 8:52 AM CDT) Patholo gist Method Time Signature Activated 469 (H) 84 - 139 [facility] Clotting Time, SEC LABORATORIES - POCT [facility] Specimen Anatomical Collection Method Collection Time Receive d Time (Source) Location / / Volume Laterality 03/29/2013 8:52 AM 3 8:52 CDT AM CDT Historical Provider LAB POCT ORDERABLES - DEVICE Performing Organization Address [facility] Code Phon e Number [facility] LAB[facility]ATORIES - [address] HX intra-Op Auto Tx (03/29/2013 8:40 AM CDT) Analysis Performed At Patho logist Time Signature HXRBC # UNITS 1.89 [facility] TRANSFUSED LABORATORIES [facility] HXRBC UNIT INFO RBC [facility] [place] Comment: Component Type Intraoperative Salvaged R BC Unit Number =[id number] Issue Date/Time [id number] Specimen (Source) Anatomical Collection Method Collection Time Re ceived Time Location / / Volume Laterality 03/29/2013 8:40 AM CDT Historical Provider LAB HISTORICAL ORDERS Performing Organization Address City/[facility]/ZIP Code Phon e Number [facility]IES - [address] [address] 05 [facility] Echocardiogram (03/29/2013 8:00 AM CDT) Anatomical Region Laterality Modality Echocardiography Specimen (Source) Anatomical Collection Method Collection Time Re ceived Time Location / / Volume Laterality 03/29/2013 8:00 AM CDT Historical Provider CV ECHO PROCEDURES Glucose, Whole Blood (03/29/2013 7:57 AM CDT) athologist Signature Glucose, S 94 70 - 140 [facility] MG/DL [facility] Comment: [place] Specimen Anatomical Collection Method Collection Time Receive d Time (Source) Location / / Volume Laterality 03/29/2013 7:57 AM 3 7:57 CDT AM CDT Narrative [facility] - 03/29/2013 8:00 AM CDT [place] Historical Provider LAB BLOOD TROPONIN Performing Organization Address City/[facility] Phon e Number [facility] - [address] [address] 05 [facility] Sodium (03/29/2013 7:57 AM CDT) athologist Signature Sodium, B 140 135 - 145 [facility] MMOL/L [facility] Comment: [place] Specimen Anatomical Collection Method Collection Time Receive d Time (Source) Location / / Volume Laterality 03/29/2013 7:57 AM 3 7:57 CDT AM CDT Narrative [facility] - 03/29/2013 8:00 AM CDT [place] Historical Provider LAB BLOOD ADD-ON Performing Organization Address City/[facility]/ZIP Code Phon e Number [facility]ATORIES - [address] [address] [facility] (ABNORMAL) Blood Gas with Coox, Arterial (03/29/2013 7:57 AM CDT) athologist Signature pH 7.33 (L) 7.35 - [facility] 7.45 PH [facility] Comment: [place] Base Excess 1 -2 - 2 MMOL/L [facility] Comment: [place] O2Hb 97.7 94.0 - 98.0 % [facility] Comment: [place] COHb 1.0 <3.0 % [facility] LABORATO URI[facility] Comment: [place] pO2 129 (H) 80 - 100 MM HG [facility] Comment: [place] pCO2 51 (H) 35 - 45 MM HG [facility] LABO RATORIES [facility] Comment: [place] HCO3 27 (H) 22 - 26 MMOL/L [facility] Comment: [place] Hb 12.4 12.0 - 15.5 G/DL [facility] L [facility] Comment: [place] MetHb <1.0 <1.6 % [facility] LABORATO [facility] Comment: [place] CtO2 17.3 (L) 21.0 - 23.0 VOL % [facility] [place] Comment: [place] Specimen Anatomical Collection Method Collection Time Receive d Time (Source) Location / / Volume Laterality 03/29/2013 7:57 AM 3 7:57 CDT AM CDT Narrative [facility] - 03/29/2013 8:00 AM CDT [place] Historical Provider LAB BLOOD NON ADD-ON Performing Organization Address City/[facility] Phon e Number [facility] - [address] Potassium, Blood (03/29/2013 7:57 AM CDT) P athologist Signature Potassium, B 4.1 3.6 - 5.2 [facility] MMOL/L [facility] Comment: [place] Specimen Anatomical Collection Method Collection Time Receive d Time (Source) Location / / Volume Laterality 03/29/2013 7:57 AM 3 7:57 CDT AM CDT Narrative [facility] - 03/29/2013 8:00 AM CDT [place] Historical Provider LAB BLOOD NON ADD-ON Performing Organization Address City/State/ZIP Code Phon e Number [facility] LAB[facility]ATORIES - [address] [address] [facility] Calcium, Ionized (03/29/2013 7:57 AM CDT) P athologist Signature Calcium, 4.93 4.65 - [facility] Ionized, B 5.30 MG/DL [facility] Comment: [place] Specimen Anatomical Collection Method Collection Time Receive d Time (Source) Location / / Volume Laterality 03/29/2013 7:57 AM 3 7:57 CDT AM CDT Narrative [facility] LABORATORIES - [facility] - 03/29/2013 8:00 AM CDT [place] Historical Provider LAB BLOOD NON ADD-ON Performing Organization Address City/State/ZIP Code Phon e Number [facility]IES - [address] [place], [place] [address] [facility] (ABNORMAL) ACT (Activated Clotting Time), POCT (03/29/2013 7:55 AM CDT) [facility] gist Method Time Signature Activated 146 (H) 84 - 139 [facility] Clotting Time, SEC LABORATORIES - POCT [facility] Specimen Anatomical Collection Method Collection Time Receive d Time (Source) Location / / Volume Laterality 03/29/2013 7:55 AM 3 7:55 CDT AM CDT Historical Provider LAB POCT ORDERABLES - DEVICE Performing Organization Address City/[facility] Phon e Number [facility]ATORIES - [address] [place], [place] [address] [facility] documented in this encounter Visit Diagnoses Not on filedocumented in this encounter
--- OUTSIDE RECORDS SUMMARY | 2022-05-25 21:12 | XMS_ITS | Encounter Summary ---
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 [address] [place] [phone] 06/22/2022 Diagnostic Pulmonary Medicine Rusty Vee M.D. [address] [place] [phone] 06/22/2022 Diagnostic Pulmonary Medicine Rusty Vee M.D. [address] [place] [phone] 06/22/2022 Appointment Radiology Rusty Vee M.D. [address] [place] [phone] 06/23/2022 Clinical Communication Admitting/Central Scheduling 06/28/2022 Appointment Pulmonary Medicine Rusty Vee M.D. [address] [place] [phone] 06/28/2022 Appointment Pulmonary Medicine Rusty Vee M.D. [address] [place] [phone] documented as of this encounter Visit Diagnoses Not on filedocumented in this encounter
--- OUTSIDE RECORDS SUMMARY | 2022-05-25 21:12 | XMS_ITS | Encounter Summary ---
:1975 Author Organization 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 [address] [place] [phone] 06/22/2022 Diagnostic Pulmonary Medicine Rusty Vee M.D. [address] [place] [phone] 06/22/2022 Diagnostic Pulmonary Medicine Rusty Vee M.D. [address] [place] [phone] 06/22/2022 Appointment Radiology Rusty Vee M.D. [address] [place] [phone] 06/23/2022 Clinical Communication Admitting/Central Scheduling 06/28/2022 Appointment Pulmonary Medicine Rusty Vee M.D. [address] [place] [phone] 06/28/2022 Appointment Pulmonary Medicine Rusty Vee M.D. [address] [place] [phone] documented as of this encounter Procedures Procedure Name Priority Date/Time Associated Comments Diagnosis PROTHROMBIN TIME Routine 04/07/2013 11:02 Results for this (PT), P AM CDT procedure are i n the results section. documented in this encounter Results PT (Prothrombin Time) with INR (04/07/2013 11:02 AM CDT) P athologist Signature INR 1.50 [facility] Specimen (Source) Anatomical Collection Method Collection Time Re ceived Time Location / / Volume Laterality 04/07/2013 11:02 AM CDT Historical Provider LAB BLOOD ADD-ON Performing Organization Address City/State/ZIP Code Phon e Number [facility] LAB documented in this encounter Visit Diagnoses Not on filedocumented in this encounter
--- OUTSIDE RECORDS SUMMARY | 2022-05-25 21:12 | XMS_ITS | Encounter Summary ---
:1975 Author Organization [facility] Address [address] [place] [address] Care Team Providers Name Role Phone Unavailable Primary Care Provider Unavailable Encounter Details Date Type Department Care Team Description 04/08/2013 Hospital Encounter [facility] Jose Manuel Flowers III, M.D. 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 [address] [place] [phone] 06/22/2022 Diagnostic Pulmonary Medicine Rusty Vee M.D. [address] [place] [phone] 06/22/2022 Diagnostic Pulmonary Medicine Rusty Vee M.D. [address] [place] [phone] 06/22/2022 Appointment Radiology Rusty Vee M.D. [address] [place] [phone] 06/23/2022 Clinical Communication Admitting/Central Scheduling 06/28/2022 Appointment Pulmonary Medicine Rusty Vee M.D. [address] [place] [phone] 06/28/2022 Appointment Pulmonary Medicine Rusty Vee M.D. [address] [place] [phone] documented as of this encounter Procedures Procedure Name Priority Date/Time Associated Comments Diagnosis PROTHROMBIN TIME Routine 04/08/2013 10:43 Results for this (PT), P AM CDT procedure are i n the results section. documented in this encounter Results (ABNORMAL) PT (Prothrombin Time) with INR (04/08/2013 10:43 AM CDT) [facility] Method Time Signature Prothrombin 15.6 (H) 9.3 - 11.3 POWERCHART Time, P SECONDS INR 1.54 (H) 0.90 - 1.10 POWERCHART Specimen (Source) Anatomical Collection Method Collection Time Re ceived Time Location / / Volume Laterality Blood 04/08/2013 10:43 AM CDT Sridhar C Mollgaard M.D. LAB BLOOD ADD-ON Performing Organization Address City/State/ZIP Code Phon e Number POWERCHART documented in this encounter Visit Diagnoses Not on filedocumented in this encounter
--- OUTSIDE RECORDS SUMMARY | 2022-05-25 21:12 | XMS_ITS | Encounter Summary ---
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 [address] [place] [phone] 06/22/2022 Diagnostic Pulmonary Medicine Rusty Vee M.D. [address] [place] [phone] 06/22/2022 Diagnostic Pulmonary Medicine Rusty Vee M.D. [address] [place] [phone] 06/22/2022 Appointment Radiology Rusty Vee M.D. [address] [place] [phone] 06/23/2022 Clinical Communication Admitting/Central Scheduling 06/28/2022 Appointment Pulmonary Medicine Rusty Vee M.D. [address] [place] [phone] 06/28/2022 Appointment Pulmonary Medicine Rusty Vee M.D. [address] [place] [phone] documented as of this encounter Visit Diagnoses Not on filedocumented in this encounter
--- OUTSIDE RECORDS SUMMARY | 2022-05-25 21:12 | XMS_ITS | Encounter Summary ---
:1975 Author Organization [facility] Address [address] [place] [address] Care Team Providers Name Role Phone Unavailable Primary Care Provider Unavailable Encounter Details Date Type Department Care Team Description 04/05/2013 Hospital Encounter HX [facility] Juan Manuel Limon M.D. 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 [address] [place] [phone] 06/22/2022 Diagnostic Pulmonary Medicine Rusyt Vee M.D. [address] [place] [phone] 06/22/2022 Diagnostic Pulmonary Medicine Rusty Vee M.D. [address] [place] [phone] 06/22/2022 Appointment Radiology Rusty Vee M.D. [address] [place] [phone] 06/23/2022 Clinical Communication Admitting/Central Scheduling 06/28/2022 Appointment Pulmonary Medicine Rusty Vee M.D. [address] [place] [phone] 06/28/2022 Appointment Pulmonary Rusty Mattson M.D. [address] [place] [phone] documented as of this encounter Procedures Procedure Name Priority Date/Time Associated Comments Diagnosis PROTHROMBIN TIME Routine 04/05/2013 11:30 Results for this (PT), P AM CDT procedure are i n the results section. documented in this encounter Results (ABNORMAL) PT (Prothrombin Time) with INR (04/05/2013 11:30 AM CDT) [facility] Method Time Signature Prothrombin 21.0 (H) [...]
--- OUTSIDE RECORDS SUMMARY | 2022-05-25 21:12 | XMS_ITS | Encounter Summary ---
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 200 [place] [phone] 06/22/2022 Diagnostic Pulmonary Medicine Rusty Vee M.D. [address] [place] [phone] 06/22/2022 Diagnostic Pulmonary Medicine Rusty Vee M.D. [address] [place] [phone] 06/22/2022 Appointment Radiology Rusty Vee M.D. [address] [place] [phone] 06/23/2022 Clinical Communication Admitting/Central Scheduling 06/28/2022 Appointment Pulmonary Medicine uRsty Vee M.D. [address] [place] [phone] 06/28/2022 Appointment Pulmonary Medicine Rusty Vee M.D. [address] [place] [phone] documented as of this encounter Visit Diagnoses Not on filedocumented in this encounter
--- OUTSIDE RECORDS SUMMARY | 2022-05-25 21:12 | XMS_ITS | Encounter Summary ---
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 [address] [place] [phone] 06/22/2022 Diagnostic Pulmonary Medicine Rusty Vee M.D. [address] [place] [phone] 06/22/2022 Diagnostic Pulmonary Medicine Rusty Vee M.D. [address] [place] [phone] 06/22/2022 Appointment Radiology Rusty Vee M.D. [address] [place] [phone] 06/23/2022 Clinical Communication Admitting/Central Scheduling 06/28/2022 Appointment Pulmonary Medicine Rusty Vee M.D. [address] [place] [phone] 06/28/2022 Appointment Pulmonary Medicine Rusty Vee M.D. [address] [place] [phone] documented as of this encounter Visit Diagnoses Not on filedocumented in this encounter
--- OUTSIDE RECORDS SUMMARY | 2022-05-25 21:12 | XMS_ITS | Encounter Summary ---
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 200 [place] [phone] 06/22/2022 Diagnostic Pulmonary Medicine Rusty Vee M.D. [address] [place] [phone] 06/22/2022 Diagnostic Pulmonary Medicine Rusty Vee M.D. [address] [place] [phone] 06/22/2022 Appointment Radiology Rusty Vee M.D. [address] [place] [phone] 06/23/2022 Clinical Communication Admitting/Central Scheduling 06/28/2022 Appointment Pulmonary Medicine Rusty Vee M.D. [address] [place] [phone] 06/28/2022 Appointment Pulmonary Medicine Rusty Vee M.D. [address] [place] [phone] documented as of this encounter Visit Diagnoses Not on filedocumented in this encounter
--- OUTSIDE RECORDS SUMMARY | 2022-05-25 21:12 | XMS_ITS | Encounter Summary ---
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 [address] [place] [phone] 06/22/2022 Diagnostic Pulmonary Medicine Rusty Vee M.D. [address] [place] [phone] 06/22/2022 Diagnostic Pulmonary Medicine Rusty Vee M.D. [address] [place] [address] [phone] 06/22/2022 Appointment Radiology Rusty Vee M.D. [address] [place] [phone] 06/23/2022 Clinical Communication Admitting/Central Scheduling 06/28/2022 Appointment Pulmonary Medicine Rusty Vee M.D. [address] [place] [phone] 06/28/2022 Appointment Pulmonary Medicine Rusty Vee M.D. [address] [place] [phone] documented as of this encounter Visit Diagnoses Not on filedocumented in this encounter
--- OUTSIDE RECORDS SUMMARY | 2022-05-25 21:12 | XMS_ITS | Encounter Summary ---
:1975 Author Organization [facility] Address [address] [place] [address] Care Team Providers Name Role Phone Unavailable Primary Care Provider Unavailable Encounter Details Date Type Department Care Team Description 04/04/2013 Hospital Encounter [facility]X [facility] Andrea Whipple M.D. 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 - 04/04/2013 12:00 AM CDT [id number] April 04, 2013 Dear Colleague, Our patient, Hue Medina, 1975 is currently in the [place], [place] area following heart surgery. 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 . INR monitoring is required to continue the consistent management of our patient. Please draw an INR on a PRN basis and fax the results to: [facility] in [place] [address] Fax: Phone: Thank You for your cooperation. Sincerely, Sridhar Garibay RN Source: [facility] Document Id: [id number] Electronically signed by Conversion, [facility] Internet Consultant [id number] at 11/21/2016 3:05 PM CDT documented in this encounter Plan of Treatment Upcoming Encounters Date Type Specialty Care Team Description 06/22/2022 Appointment Laboratory Medicine Rusty Vee M.D. [address] [place] [phone] 06/22/2022 Diagnostic Pulmonary Medicine Rusty Vee M.D. [address] [place] [phone] 06/22/2022 Diagnostic Pulmonary Medicine Rusty Vee M.D. [address] [place] [phone] 06/22/2022 Appointment Radiology Rusty Vee M.D. [address] [place] [phone] 06/23/2022 Clinical Communication Admitting/Central Scheduling 06/28/2022 Appointment Pulmonary Medicine Rusty Vee M.D. [address] [place] [phone] 06/28/2022 Appointment Pulmonary Medicine Rusty Vee M.D. [address] [place] [phone] documented as of this encounter Visit Diagnoses Not on filedocumented in this encounter
--- OUTSIDE RECORDS SUMMARY | 2022-05-25 21:12 | XMS_ITS | Encounter Summary ---
:1975 Author Organization [facility] Address [address] [place] [address] Care Team Providers Name Role Phone Unavailable Primary Care Provider Unavailable Encounter Details Date Type Department Care Team Description 04/05/2013 Hospital Encounter HX [facility] Sunni August, TETE, C.N.P., D. N.P. 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 [address] [place] [phone] 06/22/2022 Diagnostic Pulmonary Medicine Rusty Vee M.D. [address] [place] [phone] 06/22/2022 Diagnostic Pulmonary Medicine Rusty Vee M.D. [address] [place] [phone] 06/22/2022 Appointment Radiology Rusty Vee M.D. [address] [place] [phone] 06/23/2022 Clinical Communication Admitting/Central Scheduling 06/28/2022 Appointment Pulmonary Medicine Rusty Vee M.D. [address] [place] [phone] 06/28/2022 Appointment Pulmonary Medicine Rusty Vee M.D. [address] [place] [phone] documented as of this encounter Visit Diagnoses Not on filedocumented in this encounter
--- OUTSIDE RECORDS SUMMARY | 2022-05-25 21:12 | XMS_ITS | Encounter Summary ---
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 [address] [place] [phone] 06/22/2022 Diagnostic Pulmonary Medicine Rusty Vee M.D. [address] [place] [phone] 06/22/2022 Diagnostic Pulmonary Medicine Rusty Vee M.D. [address] [place] [address] [phone] 06/22/2022 Appointment Radiology Rusty Vee M.D. [address] [place] [phone] 06/23/2022 Clinical Communication Admitting/Central Scheduling 06/28/2022 Appointment Pulmonary Medicine Rusty Vee M.D. [address] [place] [phone] 06/28/2022 Appointment Pulmonary Medicine Rusty Vee M.D. [address] [place] [phone] documented as of this encounter Visit Diagnoses Not on filedocumented in this encounter
--- OUTSIDE RECORDS SUMMARY | 2022-05-25 21:13 | XMS_ITS | Encounter Summary ---
:1975 Author Organization [facility] Address [address] [place] [address] Care Team Providers Name Role Phone Unavailable Primary Care Provider Unavailable Encounter Details Date Type Department Care Team Description 02/20/2013 Hospital Encounter [facility] Antonia Jenkins R.N. 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 200 [place] [phone] 06/22/2022 Diagnostic Pulmonary Medicine Rusty Vee M.D. 200 [place] [phone] 06/22/2022 Diagnostic Pulmonary Medicine Rusty Vee M.D. [address] [place] [phone] 06/22/2022 Appointment Radiology Rusty Vee M.D. [address] [place] [phone] 06/23/2022 Clinical Communication Admitting/Central Scheduling 06/28/2022 Appointment Pulmonary Medicine Rusty Vee M.D. [address] [place] [address] [phone] 06/28/2022 Appointment Pulmonary Medicine Rusty Vee M.D. [address] [place] [phone] documented as of this encounter Visit Diagnoses Not on filedocumented in this encounter
--- OUTSIDE RECORDS SUMMARY | 2022-05-25 21:13 | XMS_ITS | Encounter Summary ---
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 200 [place] [phone] 06/22/2022 Diagnostic Pulmonary Medicine Rusty Vee M.D. 200 [place] [phone] 06/22/2022 Diagnostic Pulmonary Medicine Rusty Vee M.D. [address] [place] [phone] 06/22/2022 Appointment Radiology Rusty Vee M.D. [address] [place] [phone] 06/23/2022 Clinical Communication Admitting/Central Scheduling 06/28/2022 Appointment Pulmonary Medicine Rusty Vee M.D. [address] [place] [phone] 06/28/2022 Appointment Pulmonary Medicine Rusty Vee M.D. [address] [place] [phone] documented as of this encounter Visit Diagnoses Not on filedocumented in this encounter
--- OUTSIDE RECORDS SUMMARY | 2022-05-25 21:13 | XMS_ITS | Encounter Summary ---
:1975 Author Organization [facility] Address [address] [place] [address] Care Team Providers Name Role Phone Unavailable Primary Care Provider Unavailable Encounter Details Date Type Department Care Team Description 12/04/2012 Hospital Encounter HX NO MAPPING Jayden Parikh M.D. 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 - 12/04/2012 12:00 AM CDT [id number] Hue Bellamy Carol [address] [facility] [phone] December 12, 2012 Dear Hue Medina The biopsy results from your recent colonoscopy exam at the [facility] in [place] - Endoscopy Department show the following: Benign (non- cancerous), mild inflammation in the rectum. I recommend you follow up with your primary doctor as needed and use Anusol suppositories for 1 week. If you have any questions/concerns regarding this, please call us at [phone]. Thank you for letting us serve you. Sincerely, Eddi Parikh MD [facility] [place] Source: [facility] RWHXTRANSXRTFSYS Document Id: [id number] Electronically signed by Conversion, [facility] Terra [place]ta Mold Maker [id number] at 11/21/2016 6:06 PM CDT documented in this encounter Plan of Treatment Upcoming Encounters Date Type Specialty Care Team Description 06/22/2022 Appointment Laboratory Medicine Rusty Vee M.D. [address] [place] [phone] 06/22/2022 Diagnostic Pulmonary Medicine Rusty Vee M.D. [address] [place] [phone] 06/22/2022 Diagnostic Pulmonary Medicine Rusty Vee M.D. [address] [place] [phone] 06/22/2022 Appointment Radiology Rusty Vee M.D. [address] [place] [phone] 06/23/2022 Clinical Communication Admitting/Central Scheduling 06/28/2022 Appointment Pulmonary Medicine Rusty Vee M.D. [address] [place] [phone] 06/28/2022 Appointment Pulmonary Medicine Rusty Vee M.D. [address] [place] [phone] documented as of this encounter Visit Diagnoses Not on filedocumented in this encounter
--- OUTSIDE RECORDS SUMMARY | 2022-05-25 21:13 | XMS_ITS | Encounter Summary ---
:[address] [facility] Address [address] [place] [address] Care Team Providers Name Role Phone Unavailable Primary Care Provider Unavailable Encounter Details Date Type Department Care Team Description 11/29/2012 Hospital Encounter HX [facility] Janie Hunt ra, R.N. 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 - 11/29/2012 12:00 AM CDT [id number] Situation/What is the patients concern/need: Having Colonscopy [...] reach patient: INR clinic requesting clarification [facility] Document Id: [id number] Electronically signed by Conversion, [facility] Slitter Creaser Slotter Operator [id number] at 11/21/2016 6:06 PM CDT Telephone Encounter - Jazz Hunt RViktor - 11/29/2012 12:[id number] Quan, can you review this and support Enoc's recommendation? I can not find anything in patient's chart /msg from PCP. Source[facility] Document Id: [id number] Electronically signed by Conversion, [facility] Slitter Creaser Slotter Operator [id number] at 11/21/2016 6:06 PM CDT Telephone Encounter - Jazz Hunt R.Michael - 11/29/2012 12:00 AM CDT [id number] PCP returned call and it is OK to hold Coumadin 3 days prior to colonscopy w/o bridging. [facility] Document Id: [id number] Electronically signed by Conversion, [facility] Slitter Creaser Slotter Operator [id number] at 11/21/2016 6:06 PM CDT Telephone Encounter - Jazz Hunt, R.N. - 11/29/2012 12:00 AM CDT [id number] INR nurse notified of PCPs response Source[facility] Document Id: [id number] Electronically signed by Conversion, [facility] Slitter Creaser Slotter Operator [id number] at 11/21/2016 6:06 PM CDT documented in this encounter Plan of Treatment Upcoming Encounters Date Type Specialty Care Team Description 06/22/2022 Appointment Laboratory Medicine Rusty Vee M.D. [address] [place] [phone] 06/22/2022 Diagnostic Pulmonary Medicine Rusty Vee M.D. [address] [place] [phone] 06/22/2022 Diagnostic Pulmonary Medicine Rusty Vee M.D. [address] [place] [phone] 06/22/2022 Appointment Radiology Rusty Vee M.D. [address] [place] [phone] 06/23/2022 Clinical Communication Admitting/Central Scheduling 06/28/2022 Appointment Pulmonary Medicine Rusty Vee M.D. [address] [place] [phone] 06/28/2022 Appointment Pulmonary Medicine Rusty Vee M.D. [address] [place] [phone] documented as of this encounter Visit Diagnoses Not on filedocumented in this encounter
--- OUTSIDE RECORDS SUMMARY | 2022-05-25 21:13 | XMS_ITS | Encounter Summary ---
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 [address] [place] [phone] 06/22/2022 Diagnostic Pulmonary Medicine Rusty Vee M.D. [address] [place] [phone] 06/22/2022 Diagnostic Pulmonary Medicine Rusty Vee M.D. [address] [place] [phone] 06/22/2022 Appointment Radiology Rusty Vee M.D. [address] [place] [phone] 06/23/2022 Clinical Communication Admitting/Central Scheduling 06/28/2022 Appointment Pulmonary Medicine Rusty Vee M.D. [address] [place] [phone] 06/28/2022 Appointment Pulmonary Medicine Rusty Vee M.D. [address] [place] [phone] documented as of this encounter Visit Diagnoses Not on filedocumented in this encounter
--- OUTSIDE RECORDS SUMMARY | 2022-05-25 21:13 | XMS_ITS | Encounter Summary ---
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 [address] [place] [phone] 06/22/2022 Diagnostic Pulmonary Medicine Rusty Vee M.D. [address] [place] [phone] 06/22/2022 Diagnostic Pulmonary Medicine Rusty Vee M.D. [address] [place] [phone] 06/22/2022 Appointment Radiology Rusty Vee M.D. [address] [place] [phone] 06/23/2022 Clinical Communication Admitting/Central Scheduling 06/28/2022 Appointment Pulmonary Medicine Rusty Vee M.D. [address] [place] [phone] 06/28/2022 Appointment Pulmonary Medicine Rusty Vee M.D. [address] [place] [phone] documented as of this encounter Procedures Procedure Name Priority Date/Time Associated Comments Diagnosis PROTHROMBIN TIME Routine 11/22/2012 10:01 Results for this (PT), P AM CDT procedure are i n the results section. documented in this encounter Results PT (Prothrombin Time) with INR (11/22/2012 10:01 AM CDT) P athologist Signature INR 2.43 [facility] Specimen (Source) Anatomical Collection Method Collection Time Re ceived Time Location / / Volume Laterality 11/22/2012 10:01 AM CDT Historical Provider LAB BLOOD ADD-ON Performing Organization Address City/State/ZIP Code Phon e Number [facility] documented in this encounter Visit Diagnoses Not on filedocumented in this encounter
--- OUTSIDE RECORDS SUMMARY | 2022-05-25 21:13 | XMS_ITS | Encounter Summary ---
:[address] [facility] Address [address] [place] [address] Care Team Providers Name Role Phone Unavailable Primary Care Provider Unavailable Encounter Details Date Type Department Care Team Description 02/19/2013 Hospital Encounter HX NO MAPPING Bernie Valenzuela, F.N.P. 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 OBJECTIVE: VITAL SIGNS: As noted in [facility], afebrile. GENERAL: The patient is an alert [...] lower leg. PLAN: Keflex as prescribed in [facility]. Like I side before INR Clinic was informed that patient was placed on an antibiotic as well as having an infection and of her current INR. Instructed if not getting better in a few days or any other concerning symptoms to follow up. The patient and the patient's father are in agreement with this plan. MARLENY Carter/basim Source: [facility] [id number] Document Id: [id number] Electronically signed by Lay [facility] Sexual Assault Counselor [id number] at 11/21/2016 4:59 PM CDT documented in this encounter Plan of Treatment Upcoming Encounters Date Type Specialty Care Team Description 06/22/2022 Appointment Laboratory Medicine Rusty Vee M.D. [address] [place] [phone] 06/22/2022 Diagnostic Pulmonary Medicine Rusty Vee M.D. [address] [place] [phone] 06/22/2022 Diagnostic Pulmonary Medicine Rusty Vee M.D. [address] [place] [phone] 06/22/2022 Appointment Radiology Rusty Vee M.D. [address] [place] [phone] 06/23/2022 Clinical Communication Admitting/Central Scheduling 06/28/2022 Appointment Pulmonary Medicine Rusty Vee M.D. [address] [place] [phone] 06/28/2022 Appointment Pulmonary Medicine Rusty Vee M.D. [address] [place] [phone] documented as of this encounter Procedures Procedure [...] AST (Aspartate Aminotransferase) (02/19/2013 7:31 PM CDT) [facility] Method Time Signature Aspartate 31 UL [facility] Aminotransferase [facility] Specimen (Source) Anatomical Collection Method Collection Time Re ceived Time Location / / Volume Laterality 02/19/2013 7:31 PM CDT Historical Provider LAB BLOOD ADD-ON Performing Organization Address City/State/ZIP Code Phon e Number [facility] ALT (Alanine Aminotransferase) (02/19/2013 7:31 PM CDT) P athologist Signature Alanine 28 UL [facility] e, LD LAB Specimen (Source) Anatomical Collection Method Collection Time Re ceived Time Location / / Volume Laterality 02/19/2013 7:31 PM CDT Historical Provider LAB BLOOD ADD-ON Performing Organization Address City/State/ZIP Code Phon e Number [facility] Alkaline Phosphatase (02/19/2013 7:31 PM CDT) P athologist Signature Alkaline 80 UL [facility] Phosphatase, S [facility] LAB Specimen (Source) Anatomical Collection Method Collection Time Re ceived Time Location / / Volume Laterality 02/19/2013 7:31 PM CDT Historical Provider LAB BLOOD ADD-ON Performing Organization Address City/State/ZIP Code Phon e Number [facility] Albumin (02/19/2013 7:31 PM CDT) P athologist Signature Albumin, S 4.1 GMDL [facility] Specimen (Source) Anatomical Collection Method Collection Time Re ceived Time Location / / Volume Laterality 02/19/2013 7:31 PM CDT Historical Provider LAB BLOOD ADD-ON Performing Organization Address City/State/ZIP Code Phon e Number [facility] Bilirubin, Total (02/19/2013 7:31 PM CDT) P athologist Signature Bilirubin, 0.6 MGDL [facility] Total, S [facility] Specimen (Source) Anatomical Collection Method Collection Time Re ceived Time Location / / Volume Laterality 02/19/2013 7:31 PM CDT Historical Provider LAB BLOOD ADD-ON Performing Organization Address City/State/ZIP Code Phon e Number [facility] Calcium, Total (02/19/2013 7:31 PM CDT) P athologist Signature Calcium, Total, 9.3 MGDL [facility] Specimen (Source) Anatomical Collection Method Collection Time Re ceived Time Location / / Volume Laterality 02/19/2013 7:31 PM CDT Historical Provider LAB BLOOD ADD-ON Performing Organization Address City/State/ZIP Code Phon e Number [facility] Creatinine with Estimated GFR (MDRD), Plasma (02/19/2013 7:31 PM CDT) P athologist Signature eGFR 61 [id number] [facility] Black/ [facility] [place] LAB Specimen (Source) Anatomical Collection Method Collection Time Re ceived Time Location / / Volume Laterality 02/19/2013 7:31 PM CDT Historical Provider LAB BLOOD ADD-ON Performing Organization Address City/State/ZIP Code Phon e Number [facility] Creatinine with Estimated GFR (MDRD), Plasma (02/19/2013 7:31 PM CDT) P athologist Signature HXeGFR (MDRD) 50 [id number] [facility] Specimen (Source) Anatomical Collection Method Collection Time Re ceived Time Location / / Volume Laterality 02/19/2013 7:31 PM CDT Historical Provider LAB BLOOD ADD-ON Performing Organization Address City/State/ZIP Code Phon e Number [facility] Creatinine with Estimated GFR (MDRD) (02/19/2013 7:31 PM CDT) P athologist Signature Creatinine 1.20 MGDL [facility] Specimen (Source) Anatomical Collection Method Collection Time Re ceived Time Location / / Volume Laterality 02/19/2013 7:31 PM CDT Historical Provider LAB BLOOD ADD-ON Performing Organization Address City/State/ZIP Code Phon e Number [facility] HX UREA NITROGEN (02/19/2013 7:31 PM CDT) P athologist Signature Urea Nitrogen, 15 MGDL [facility] 24 HR, U [facility] Specimen (Source) Anatomical Collection Method Collection Time Re ceived Time Location / / Volume Laterality 02/19/2013 7:31 PM CDT Historical Provider LAB HISTORICAL ORDERS Performing Organization Address City/State/ZIP Code Phon e Number [facility] Glucose, Random (02/19/2013 7:31 PM CDT) P athologist Signature Glucose 95 MGDL [facility] Specimen (Source) Anatomical Collection Method Collection Time Re ceived Time Location / / Volume Laterality 02/19/2013 7:31 PM CDT Historical Provider LAB BLOOD TROPONIN Performing Organization Address City/State/ZIP Code Phon e Number [facility] HX AGAP (02/19/2013 7:31 PM CDT) P athologist Signature Anion Gap 13 MMOLL [facility] Specimen (Source) Anatomical Collection Method Collection Time Re ceived Time Location / / Volume Laterality 02/19/2013 7:31 PM CDT Historical Provider LAB HISTORICAL ORDERS Performing Organization Address City/State/ZIP Code Phon e Number [facility] Bicarbonate (02/19/2013 7:31 PM CDT) P athologist Signature HX Carbon 28 MMOLL [facility] Dioxide [facility] Specimen (Source) Anatomical Collection Method Collection Time Re ceived Time Location / / Volume Laterality 02/19/2013 7:31 PM CDT Historical Provider LAB BLOOD ADD-ON Performing Organization Address City/State/ZIP Code Phon e Number [facility] Chloride (02/19/2013 7:31 PM CDT) P athologist Signature Chloride, S 101 MMOLL [facility] Specimen (Source) Anatomical Collection Method Collection Time Re ceived Time Location / / Volume Laterality 02/19/2013 7:31 PM CDT Historical Provider LAB BLOOD ADD-ON Performing Organization Address City/State/ZIP Code Phon e Number [facility] Potassium, S (02/19/2013 7:31 PM CDT) P athologist Signature Potassium, S 3.9 MMOLL [facility] Specimen (Source) Anatomical Collection Method Collection Time Re ceived Time Location / / Volume Laterality 02/19/2013 7:31 PM CDT Historical Provider LAB BLOOD ADD-ON Performing Organization Address City/State/ZIP Code Phon e Number [facility] Sodium (02/19/2013 7:31 PM CDT) P athologist Signature Sodium, S 141 MMOLL [facility] Specimen (Source) Anatomical Collection Method Collection Time Re ceived Time Location / / Volume Laterality 02/19/2013 7:31 PM CDT Historical Provider LAB BLOOD ADD-ON Performing Organization Address City/State/ZIP Code Phon e Number [facility] APTT (Activated Partial Thromboplastin Time) (02/19/2013 7:30 PM CDT) P athologist Signature Prothrombin 32 SECONDS [facility] Time, P [facility] Specimen (Source) Anatomical Collection Method Collection Time Re ceived Time Location / / Volume Laterality 02/19/2013 7:30 PM CDT Historical Provider LAB BLOOD ADD-ON Performing Organization Address City/State/ZIP Code Phon e Number [facility] PT (Prothrombin Time) with INR (02/19/2013 7:30 PM CDT) P athologist Signature INR 1.86 [facility] Specimen (Source) Anatomical Collection Method Collection Time Re ceived Time Location / / Volume Laterality 02/19/2013 7:30 PM CDT Historical Provider LAB BLOOD ADD-ON Performing Organization Address City/State/ZIP Code Phon e Number [facility] D-Dimer (02/19/2013 7:30 PM CDT) P athologist Signature D-Dimer, P <0.3 MCGMLFEU [facility] Specimen (Source) Anatomical Collection Method Collection Time Re ceived Time Location / / Volume Laterality 02/19/2013 7:30 PM CDT Historical Provider LAB BLOOD ADD-ON Performing Organization Address City/State/ZIP Code Phon e Number [facility] Automated Differential (02/19/2013 7:24 PM CDT) P athologist Signature HXGranulo 0.0 109L [facility] Specimen (Source) Anatomical Collection Method Collection Time Re ceived Time Location / / Volume Laterality 02/19/2013 7:24 PM CDT Historical Provider LAB BLOOD ADD-ON Performing Organization Address City/State/ZIP Code Phon e Number [facility] Automated Differential (02/19/2013 7:24 PM CDT) P athologist Signature Absolute 0.0 109L [facility] Specimen (Source) Anatomical Collection Method Collection Time Re ceived Time Location / / Volume Laterality 02/19/2013 7:24 PM CDT Historical Provider LAB BLOOD ADD-ON Performing Organization Address City/State/ZIP Code Phon e Number [facility] Automated Differential (02/19/2013 7:24 PM CDT) P athologist Signature Eosinophils 0.0 109L [facility] Specimen (Source) Anatomical Collection Method Collection Time Re ceived Time Location / / Volume Laterality 02/19/2013 7:24 PM CDT Historical Provider LAB BLOOD ADD-ON Performing Organization Address City/State/ZIP Code Phon e Number [facility] Automated Differential (02/19/2013 7:24 PM CDT) P athologist Signature Monocytes 0.4 109L [facility] Specimen (Source) Anatomical Collection Method Collection Time Re ceived Time Location / / Volume Laterality 02/19/2013 7:24 PM CDT Historical Provider LAB BLOOD ADD-ON Performing Organization Address City/State/ZIP Code Phon e Number [facility] Automated Differential (02/19/2013 7:24 PM CDT) P athologist Signature Lymphocytes 1.1 109L [facility] Specimen (Source) Anatomical Collection Method Collection Time Re ceived Time Location / / Volume Laterality 02/19/2013 7:24 PM CDT Historical Provider LAB BLOOD ADD-ON Performing Organization Address City/State/ZIP Code Phon e Number [facility] Automated Differential (02/19/2013 7:24 PM CDT) P athologist Signature Absolute 3.4 109L [facility] Specimen (Source) Anatomical Collection Method Collection Time Re ceived Time Location / / Volume Laterality 02/19/2013 7:24 PM CDT Historical Provider LAB BLOOD ADD-ON Performing Organization Address City/State/ZIP Code Phon e Number [facility] Automated Differential (02/19/2013 7:24 PM CDT) P athologist Signature Immature 0.4 [facility] Granulocytes % [facility] Specimen (Source) Anatomical Collection Method Collection Time Re ceived Time Location / / Volume Laterality 02/19/2013 7:24 PM CDT Historical Provider LAB BLOOD ADD-ON Performing Organization Address City/State/ZIP Code Phon e Number [facility] Automated Differential (02/19/2013 7:24 PM CDT) P athologist Signature HX Baso % 0.2 [facility] Specimen (Source) Anatomical Collection Method Collection Time Re ceived Time Location / / Volume Laterality 02/19/2013 7:24 PM CDT Historical Provider LAB BLOOD ADD-ON Performing Organization Address City/State/ZIP Code Phon e Number [facility] Automated Differential (02/19/2013 7:24 PM CDT) P athologist Signature HX Eos % 0.6 [facility] Specimen (Source) Anatomical Collection Method Collection Time Re ceived Time Location / / Volume Laterality 02/19/2013 7:24 PM CDT Historical Provider LAB BLOOD ADD-ON Performing Organization Address City/State/ZIP Code Phon e Number [facility] Automated Differential (02/19/2013 7:24 PM CDT) P athologist Signature HX Marshall % 8.5 [facility] Specimen (Source) Anatomical Collection Method Collection Time Re ceived Time Location / / Volume Laterality 02/19/2013 7:24 PM CDT Historical Provider LAB BLOOD ADD-ON Performing Organization Address City/State/ZIP Code Phon e Number [facility] Automated Differential (02/19/2013 7:24 PM CDT) P athologist Signature Lymphocytes 22.4 [facility] Specimen (Source) Anatomical Collection Method Collection Time Re ceived Time Location / / Volume Laterality 02/19/2013 7:24 PM CDT Historical Provider LAB BLOOD ADD-ON Performing Organization Address City/State/ZIP Code Phon e Number [facility] Automated Differential (02/19/2013 7:24 PM CDT) P athologist Signature Neutro % 67.9 [facility] Specimen (Source) Anatomical Collection Method Collection Time Re ceived Time Location / / Volume Laterality 02/19/2013 7:24 PM CDT Historical Provider LAB BLOOD ADD-ON Performing Organization Address City/State/ZIP Code Phon e Number [facility] CBC with Differential (02/19/2013 7:24 PM CDT) Patholo gist Method Time Signature HXDifferentia Automated [facility] l? Method [facility] Specimen (Source) Anatomical Collection Method Collection Time Re ceived Time Location / / Volume Laterality 02/19/2013 7:24 PM CDT Historical Provider LAB BLOOD ADD-ON Performing Organization Address City/State/ZIP Code Phon e Number [facility] Platelet Count (02/19/2013 7:24 PM CDT) athologist [facility] [place] Platelet Count 164 109L [facility] Specimen (Source) Anatomical Collection Method Collection Time Re ceived Time Location / / Volume Laterality 02/19/2013 7:24 PM CDT Historical Provider LAB BLOOD ADD-ON Performing Organization Address City/State/ZIP Code Phon e Number [facility] RBC SYSMEX (02/19/2013 7:24 PM CDT) athologist [facility] [place] HX RDW 13.6 [facility] Specimen (Source) Anatomical Collection Method Collection Time Re ceived Time Location / / Volume Laterality 02/19/2013 7:24 PM CDT Historical Provider LAB URINE ORDERABLES Performing Organization Address City/State/ZIP Code Phon e Number [facility] RBC SYSMEX (02/19/2013 7:24 PM CDT) athologist Signature MCHC 33.5 GMDL [facility] Specimen (Source) Anatomical Collection Method Collection Time Re ceived Time Location / / Volume Laterality 02/19/2013 7:24 PM CDT Historical Provider LAB URINE ORDERABLES Performing Organization Address City/State/ZIP Code Phon e Number [facility] RBC SYSMEX (02/19/2013 7:24 PM CDT) athologist Signature MCH 33.3 PG [facility] Specimen (Source) Anatomical Collection Method Collection Time Re ceived Time Location / / Volume Laterality 02/19/2013 7:24 PM CDT Historical Provider LAB URINE ORDERABLES Performing Organization Address City/State/ZIP Code Phon e Number [facility] Automated Differential (02/19/2013 7:24 PM CDT) athologist Signature MCV [address] [facility] Specimen (Source) Anatomical Collection Method Collection Time Re ceived Time Location / / Volume Laterality 02/19/2013 7:24 PM CDT Historical Provider LAB BLOOD ADD-ON Performing Organization Address City/State/ZIP Code Phon e Number [facility] Hematocrit (02/19/2013 7:24 PM CDT) athologist Signature Hematocrit 40.3 [facility] Specimen (Source) Anatomical Collection Method Collection Time Re ceived Time Location / / Volume Laterality 02/19/2013 7:24 PM CDT Historical Provider LAB BLOOD ADD-ON Performing Organization Address City/State/ZIP Code Phon e Number [facility] Hemoglobin (02/19/2013 7:24 PM CDT) athologist [facility] [place] Hemoglobin 13.5 GMDL [facility] Specimen (Source) Anatomical Collection Method Collection Time Re ceived Time Location / / Volume Laterality 02/19/2013 7:24 PM CDT Historical Provider LAB BLOOD ADD-ON Performing Organization Address City/State/ZIP Code Phon e Number [facility] RBC SYSMEX (02/19/2013 7:24 PM CDT) athologist Signature Erythrocytes [address] [facility] Specimen (Source) Anatomical Collection Method Collection Time Re ceived Time Location / / Volume Laterality 02/19/2013 7:24 PM CDT Historical Provider LAB URINE ORDERABLES Performing Organization Address City/State/ZIP Code Phon e Number [facility] CBC with Differential (02/19/2013 7:24 PM CDT) athologist Signature Leukocytes [address] [facility] Specimen (Source) Anatomical Collection Method Collection Time Re ceived Time Location / / Volume Laterality 02/19/2013 7:24 PM CDT Historical Provider LAB BLOOD ADD-ON Performing Organization Address City/State/ZIP Code Phon e Number [facility] documented in this encounter Visit Diagnoses Not on filedocumented in this encounter
--- OUTSIDE RECORDS SUMMARY | 2022-05-25 21:13 | XMS_ITS | Encounter Summary ---
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 200 [place] [phone] 06/22/2022 Diagnostic Pulmonary Medicine Rusty Vee M.D. [address] [place] [phone] 06/22/2022 Diagnostic Pulmonary Medicine Rusty Vee M.D. [address] [place] [phone] 06/22/2022 Appointment Radiology Rusty Vee M.D. [address] [place] [phone] 06/23/2022 Clinical Communication Admitting/Central Scheduling 06/28/2022 Appointment Pulmonary Medicine Rusty Vee M.D. [address] [place] [phone] 06/28/2022 Appointment Pulmonary Medicine Rusty Vee M.D. [address] [place] [phone] documented as of this encounter Visit Diagnoses Not on filedocumented in this encounter
--- OUTSIDE RECORDS SUMMARY | 2022-05-25 21:13 | XMS_ITS | Encounter Summary ---
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 [address] [place] [phone] 06/22/2022 Diagnostic Pulmonary Medicine Rusty Vee M.D. [address] [place] [phone] 06/22/2022 Diagnostic Pulmonary Medicine Rusty Vee M.D. [address] [place] [phone] 06/22/2022 Appointment Radiology Rusty Vee M.D. [address] [place] [phone] 06/23/2022 Clinical Communication Admitting/Central Scheduling 06/28/2022 Appointment Pulmonary Medicine Rusty Vee M.D. [address] [place] [phone] 06/28/2022 Appointment Pulmonary Medicine Rusty Vee M.D. [address] [place] [phone] documented as of this encounter Visit Diagnoses Not on filedocumented in this encounter
--- OUTSIDE RECORDS SUMMARY | 2022-05-25 21:13 | XMS_ITS | Encounter Summary ---
:1975 Author Organization [facility] Address [address] [place] [address] Care Team Providers Name Role Phone Unavailable Primary Care Provider Unavailable Encounter Details Date Type Department Care Team Description 12/13/[address] [facility] ANTICOAG Provider, His torical Social [...] at Date Recorded Female 05/03/2022 7:07 PM LINOTYPIST documented as of this encounter Plan of Treatment Upcoming Encounters Date Type Specialty Care Team Description 06/22/2022 Appointment Laboratory Medicine Rusty Vee M.D. 200 [place] [phone] 06/22/2022 Diagnostic Pulmonary Medicine Rusty Vee M.D. 200 [place] [phone] 06/22/2022 Diagnostic Pulmonary Medicine Rusty Vee M.D. [address] [place] [phone] 06/22/2022 Appointment Radiology Rusty Vee M.D. [address] [place] [phone] 06/23/2022 Clinical Communication Admitting/Central Scheduling 06/28/2022 Appointment Pulmonary Medicine Rusty Vee M.D. [address] [place] [phone] 06/28/2022 Appointment Pulmonary Medicine Rusty Vee M.D. [address] [place] [phone] documented as of this encounter Procedures Procedure Name Priority Date/Time Associated Comments Diagnosis PROTHROMBIN TIME Routine 12/13/2012 10:45 Results for this (PT), P AM CDT procedure are i n the results section. documented in this encounter Results PT (Prothrombin Time) with INR (12/13/2012 10:45 AM CDT) P athologist Signature INR 2.22 [facility] Specimen (Source) Anatomical Collection Method Collection Time Re ceived Time Location / / Volume Laterality 12/13/2012 10:45 AM CDT Historical Provider LAB BLOOD ADD-ON Performing Organization Address City/State/ZIP Code Phon e Number [facility] documented in this encounter Visit Diagnoses Not on filedocumented in this encounter
--- OUTSIDE RECORDS SUMMARY | 2022-05-25 21:13 | XMS_ITS | Encounter Summary ---
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 200 [place] [phone] 06/22/2022 Diagnostic Pulmonary Medicine Rusty Vee M.D. 200 [place] [phone] 06/22/2022 Diagnostic Pulmonary Medicine Rusty Vee M.D. [address] [place] [phone] 06/22/2022 Appointment Radiology Rusty Vee M.D. [address] [place] [phone] 06/23/2022 Clinical Communication Admitting/Central Scheduling 06/28/2022 Appointment Pulmonary Medicine Rusty Vee M.D. [address] [place] [phone] 06/28/2022 Appointment Pulmonary Medicine Rusty Vee M.D. [address] [place] [phone] documented as of this encounter Visit Diagnoses Not on filedocumented in this encounter
--- OUTSIDE RECORDS SUMMARY | 2022-05-25 21:13 | XMS_ITS | Encounter Summary ---
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 200 [place] [phone] 06/22/2022 Diagnostic Pulmonary Medicine Rusty Vee M.D. 200 [place] [phone] 06/22/2022 Diagnostic Pulmonary Medicine Rusty Vee M.D. [address] [place] [phone] 06/22/2022 Appointment Radiology Rusty Vee M.D. [address] [place] [phone] 06/23/2022 Clinical Communication Admitting/Central Scheduling 06/28/2022 Appointment Pulmonary Medicine Rusty Vee M.D. [address] [place] [phone] 06/28/2022 Appointment Pulmonary Medicine Rusty Vee M.D. [address] [place] [phone] documented as of this encounter Procedures Procedure Name Priority Date/Time Associated Comments Diagnosis PROTHROMBIN TIME Routine 02/14/2013 9:54 AM Resul ts for this (PT), P CDT procedure are i n the results section. documented in this encounter Results PT (Prothrombin Time) with INR (02/14/2013 9:54 AM CDT) P athologist Signature INR 2.63 [facility] Specimen (Source) Anatomical Collection Method Collection Time Re ceived Time Location / / Volume Laterality 02/14/2013 9:54 AM CDT Historical Provider LAB BLOOD ADD-ON Performing Organization Address City/State/ZIP Code Phon e Number [facility] documented in this encounter Visit Diagnoses Not on filedocumented in this encounter
--- OUTSIDE RECORDS SUMMARY | 2022-05-25 21:13 | XMS_ITS | Encounter Summary ---
:[address] 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 200 [place] [phone] 06/22/2022 Diagnostic Pulmonary Medicine Rusty Vee M.D. 200 [place] [phone] 06/22/2022 Diagnostic Pulmonary Medicine Rusty Vee M.D. [address] [place] [phone] 06/22/2022 Appointment Radiology Rusty Vee M.D. [address] [place] [phone] 06/23/2022 Clinical Communication Admitting/Central Scheduling 06/28/2022 Appointment Pulmonary Medicine Rusty Vee M.D. [address] [place] [phone] 06/28/2022 Appointment Pulmonary Medicine Rusty Vee M.D. [address] [place] [phone] documented as of this encounter Procedures Procedure Name Priority Date/Time Associated Comments Diagnosis PROTHROMBIN TIME Routine 02/22/2013 5:08 PM Resul ts for this (PT), P CDT procedure are i n the results section. documented in this encounter Results PT (Prothrombin Time) with INR (02/22/2013 5:08 PM CDT) P athologist Signature INR 2.10 [facility] Specimen (Source) Anatomical Collection Method Collection Time Re ceived Time Location / / Volume Laterality 02/22/2013 5:08 PM CDT Historical Provider LAB BLOOD ADD-ON Performing Organization Address City/State/ZIP Code Phon e Number [facility] documented in this encounter Visit Diagnoses Not on filedocumented in this encounter
--- OUTSIDE RECORDS SUMMARY | 2022-05-25 21:13 | XMS_ITS | Encounter Summary ---
:1975 Author Organization [facility] Address [address] [place] [address] Care Team Providers Name Role Phone Unavailable Primary Care Provider Unavailable Encounter Details Date Type Department Care Team Description 11/29/2012 Hospital Encounter [facility] Antonia Jenkins R.N. 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 200 [place] [phone] 06/22/2022 Diagnostic Pulmonary Medicine Rusty Vee M.D. 200 [place] [phone] 06/22/2022 Diagnostic Pulmonary Medicine Rusty Vee M.D. [address] [place] [phone] 06/22/2022 Appointment Radiology Rusty Vee M.D. [address] [place] [phone] 06/23/2022 Clinical Communication Admitting/Central Scheduling 06/28/2022 Appointment Pulmonary Medicine Rusty Vee M.D. [address] [place] [phone] 06/28/2022 Appointment Pulmonary Medicine Rusty Vee M.D. [address] [place] [phone] documented as of this encounter Visit Diagnoses Not on filedocumented in this encounter
--- OUTSIDE RECORDS SUMMARY | 2022-05-25 21:13 | XMS_ITS | Encounter Summary ---
:1975 Author Organization [facility] Address [address] [place] [address] Care Team Providers Name Role Phone Unavailable Primary Care Provider Unavailable Encounter Details Date Type Department Care Team Description 12/04/2012 Hospital Encounter HX NO MAPPING Jayden Parikh M.D. 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 [address] [place] [address] 06/22/2022 Diagnostic Pulmonary Medicine Rusty Vee M.D. [address] [place] [phone] 06/22/2022 Diagnostic Pulmonary Medicine Rusty Vee M.D. [address] [place] [phone] 06/22/2022 Appointment Radiology Rusty Vee M.D. [address] [place] [phone] 06/23/2022 Clinical Communication Admitting/Central Scheduling 06/28/2022 Appointment Pulmonary Medicine Rusty Vee M.D. [address] [place] [phone] 06/28/2022 Appointment Pulmonary Medicine Rusty Vee M.D. [address] [place] [phone] documented as of this encounter Visit Diagnoses Not on filedocumented in this encounter
--- OUTSIDE RECORDS SUMMARY | 2022-05-25 21:13 | XMS_ITS | Encounter Summary ---
:1975 Author Organization [facility] Address [address] [place] [address] Care Team Providers Name Role Phone Unavailable Primary Care Provider Unavailable Encounter Details Date Type Department Care Team Description 12/04/2012 Hospital Encounter HX NO MAPPING Jayden Parikh M.D. 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 [address] [place] [address] 06/22/2022 Diagnostic Pulmonary Medicine Rusty Vee M.D. [address] [place] [phone] 06/22/2022 Diagnostic Pulmonary Medicine Rusty Vee M.D. [address] [place] [phone] 06/22/2022 Appointment Radiology Rusty Vee M.D. [address] [place] [phone] 06/23/2022 Clinical Communication Admitting/Central Scheduling 06/28/2022 Appointment Pulmonary Medicine Rusty Vee M.D. [address] [place] [phone] 06/28/2022 Appointment Pulmonary Medicine Rusty Vee M.D. [address] [place] [phone] documented as of this encounter Visit Diagnoses Not on filedocumented in this encounter
--- OUTSIDE RECORDS SUMMARY | 2022-05-25 21:13 | XMS_ITS | Encounter Summary ---
:1975 Author Organization [facility] Address [address] [place] [address] Care Team Providers Name Role Phone Unavailable Primary Care Provider Unavailable Encounter Details Date Type Department Care Team Description 03/08/2013 Hospital Encounter [facility] Mima Malagon R.N. [address] [place] [phone] Social History Tobacco Use Types Packs/Day Years [...] at Date Recorded Female 05/03/2022 7:07 PM DEVELOPMENT REP documented as of this encounter Plan of Treatment Upcoming Encounters Date Type Specialty Care Team Description 06/22/2022 Appointment Laboratory Medicine Rusty Vee M.D. 200 [place] [phone] 06/22/2022 Diagnostic Pulmonary Medicine Rusty Vee M.D. [address] [place] [phone] 06/22/2022 Diagnostic Pulmonary Medicine Rusty Vee M.D. [address] [place] [phone] 06/22/2022 Appointment Radiology Rusty Vee M.D. [address] [place] [phone] 06/23/2022 Clinical Communication Admitting/Central Scheduling 06/28/2022 Appointment Pulmonary Medicine Rusty Vee M.D. [address] [place] [phone] 06/28/2022 Appointment Pulmonary Medicine Rusty Vee M.D. [address] [place] [phone] documented as of this encounter Visit Diagnoses Not on filedocumented in this encounter
--- OUTSIDE RECORDS SUMMARY | 2022-05-25 21:13 | XMS_ITS | Encounter Summary ---
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 200 [place] [phone] 06/22/2022 Diagnostic Pulmonary Medicine Rusty Vee M.D. 200 [place] [phone] 06/22/2022 Diagnostic Pulmonary Medicine Rusty Vee M.D. [address] [place] [phone] 06/22/2022 Appointment Radiology Rusty Vee M.D. [address] [place] [phone] 06/23/2022 Clinical Communication Admitting/Central Scheduling 06/28/2022 Appointment Pulmonary Medicine Rusty Vee M.D. [address] [place] [phone] 06/28/2022 Appointment Pulmonary Medicine Rusty Vee M.D. [address] [place] [phone] documented as of this encounter Visit Diagnoses Not on filedocumented in this encounter
--- OUTSIDE RECORDS SUMMARY | 2022-05-25 21:13 | XMS_ITS | Encounter Summary ---
:1975 Author Organization [facility] Address [address] [place] [address] Care Team Providers Name Role Phone Unavailable Primary Care Provider Unavailable Encounter Details Date Type Department Care Team Description 03/26/2013 Hospital Encounter HX [facility] Usman Wynne PRACTICE M.D. [address] [address], [address] [place] [address] (Wo rk) Social History Tobacco Use Types [...] or relatives? How often do you attend adventism or More than 4 times per year 05/04/2022 jew services? 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 [address] [place] [address] 06/22/2022 Diagnostic Pulmonary Medicine Rusty Vee M.D. [address] [place] [phone] 06/22/2022 Diagnostic Pulmonary Medicine Rusty Vee M.D. [address] [place] [phone] 06/22/2022 Appointment Radiology Rusty Vee M.D. [address] [place] [phone] 06/23/2022 Clinical Communication Admitting/Central Scheduling 06/28/2022 Appointment Pulmonary Medicine Rusty Vee M.D. [address] [place] [phone] 06/28/2022 Appointment Pulmonary Medicine Rusty Vee M.D. [address] [place] [phone] documented as of this encounter Visit Diagnoses Not on filedocumented in this encounter
--- OUTSIDE RECORDS SUMMARY | 2022-05-25 21:13 | XMS_ITS | Encounter Summary ---
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 200 [place] [phone] 06/22/2022 Diagnostic Pulmonary Medicine Rusty Vee M.D. 200 [place] [phone] 06/22/2022 Diagnostic Pulmonary Medicine Rusty Vee M.D. 200 [place] [phone] 06/22/2022 Appointment Radiology Rusty Vee M.D. [address] [place] [phone] 06/23/2022 Clinical Communication Admitting/Central Scheduling 06/28/2022 Appointment Pulmonary Medicine Rusty Vee M.D. [address] [place] [phone] 06/28/2022 Appointment Pulmonary Medicine Rusty Vee M.D. [address] [place] [phone] documented as of this encounter Procedures Procedure Name Priority Date/Time Associated Comments Diagnosis PROTHROMBIN TIME Routine 01/31/2013 10:58 Results for this (PT), P AM CDT procedure are i n the results section. documented in this encounter Results PT (Prothrombin Time) with INR (01/31/2013 10:58 AM CDT) P athologist Signature INR 1.97 [facility] Specimen (Source) Anatomical Collection Method Collection Time Re ceived Time Location / / Volume Laterality 01/31/2013 10:58 AM CDT Historical Provider LAB BLOOD ADD-ON Performing Organization Address City/State/ZIP Code Phon e Number [facility] documented in this encounter Visit Diagnoses Not on filedocumented in this encounter
--- OUTSIDE RECORDS SUMMARY | 2022-05-25 21:13 | XMS_ITS | Encounter Summary ---
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 200 [place] [phone] 06/22/2022 Diagnostic Pulmonary Medicine Rusty Vee M.D. 200 [place] [phone] 06/22/2022 Diagnostic Pulmonary Medicine Rusty Vee M.D. [address] [place] [phone] 06/22/2022 Appointment Radiology Rusty Vee M.D. [address] [place] [phone] 06/23/2022 Clinical Communication Admitting/Central Scheduling 06/28/2022 Appointment Pulmonary Medicine Rusty Vee M.D. [address] [place] [phone] 06/28/2022 Appointment Pulmonary Medicine Rusty Vee M.D. [address] [place] [phone] documented as of this encounter Visit Diagnoses Not on filedocumented in this encounter
--- OUTSIDE RECORDS SUMMARY | 2022-05-25 21:13 | XMS_ITS | Encounter Summary ---
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 200 [place] [phone] 06/22/2022 Diagnostic Pulmonary Medicine Rusty Vee M.D. 200 [place] [phone] 06/22/2022 Diagnostic Pulmonary Medicine Rusty Vee M.D. [address] [place] [phone] 06/22/2022 Appointment Radiology Rusty Vee M.D. [address] [place] [phone] 06/23/2022 Clinical Communication Admitting/Central Scheduling 06/28/2022 Appointment Pulmonary Medicine Rusty Vee M.D. [address] [place] [phone] 06/28/2022 Appointment Pulmonary Medicine Rusty Vee M.D. [address] [place] [phone] documented as of this encounter Visit Diagnoses Not on filedocumented in this encounter
--- OUTSIDE RECORDS SUMMARY | 2022-05-25 21:13 | XMS_ITS | Encounter Summary ---
:1975 Author [address] [facility] Address [address] [place] [address] Care Team Providers Name Role Phone Unavailable Primary Care Provider Unavailable Encounter Details Date Type Department Care Team Description 03/27/2013 Hospital Encounter HX [facility]OLOG[facility] Rickey Rincon M.D. 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 [address] [place] [address] 06/22/2022 Diagnostic Pulmonary Medicine Rusty Vee M.D. [address] [place] [phone] 06/22/2022 Diagnostic Pulmonary Medicine Rusty Vee M.D. [address] [place] [phone] 06/22/2022 Appointment Radiology Rusty Vee M.D. [address] [place] [phone] 06/23/2022 Clinical Communication Admitting/Central Scheduling 06/28/2022 Appointment Pulmonary Medicine Rusty Vee M.D. [address] [place] [phone] 06/28/2022 Appointment Pulmonary Medicine Rusty Vee M.D. [address] [place] [phone] documented as of this encounter Visit Diagnoses Not on filedocumented in this encounter
--- OUTSIDE RECORDS SUMMARY | 2022-05-25 21:13 | XMS_ITS | Encounter Summary ---
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 200 [place] [phone] 06/22/2022 Diagnostic Pulmonary Medicine Rusty Vee M.D. 200 [place] [phone] 06/22/2022 Diagnostic Pulmonary Medicine Rusty Vee M.D. [address] [place] [phone] 06/22/2022 Appointment Radiology Rusty Vee M.D. [address] [place] [phone] 06/23/2022 Clinical Communication Admitting/Central Scheduling 06/28/2022 Appointment Pulmonary Medicine Rusty Vee M.D. [address] [place] [phone] 06/28/2022 Appointment Pulmonary Medicine Rusty Vee M.D. [address] [place] [phone] documented as of this encounter Visit Diagnoses Not on filedocumented in this encounter
--- OUTSIDE RECORDS SUMMARY | 2022-05-25 21:14 | XMS_ITS | Encounter Summary ---
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 200 [place] [phone] 06/22/2022 Diagnostic Pulmonary Medicine Rusty Vee M.D. 200 [place] [phone] 06/22/2022 Diagnostic Pulmonary Medicine Rusty Vee M.D. [address] [place] [phone] 06/22/2022 Appointment Radiology Rusty Vee M.D. [address] [place] [phone] 06/23/2022 Clinical Communication Admitting/Central Scheduling 06/28/2022 Appointment Pulmonary Medicine Rusty Vee M.D. [address] [place] [phone] 06/28/2022 Appointment Pulmonary Medicine Rusty Vee M.D. [address] [place] [phone] documented as of this encounter Procedures Procedure Name Priority Date/Time Associated Comments Diagnosis PROTHROMBIN TIME Routine 07/26/2012 9:59 AM Resul ts for this (PT), P MANAGER SALES SUPPORT procedure are i n the results section. documented in this encounter Results PT (Prothrombin Time) with INR (07/26/2012 9:59 AM MANAGER SALES SUPPORT) P athologist Signature INR 2.92 [facility] Specimen (Source) Anatomical Collection Method Collection Time Re ceived Time Location / / Volume Laterality 07/26/2012 9:59 AM MANAGER SALES SUPPORT Historical Provider LAB BLOOD ADD-ON Performing Organization Address City/State/ZIP Code Phon e Number [facility] documented in this encounter Visit Diagnoses Not on filedocumented in this encounter
--- OUTSIDE RECORDS SUMMARY | 2022-05-25 21:14 | XMS_ITS | Encounter Summary ---
:1975 Author Organization [facility] Address [address] [place] [address] Care Team Providers Name Role Phone Unavailable Primary Care Provider Unavailable Encounter Details Date Type Department Care Team Description 08/20/2012 Hospital Encounter HX NO MAPPING Yunier Scott M.D. 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 [address] [place] [phone] 06/22/2022 Diagnostic Pulmonary Medicine Rusty Vee M.D. [address] [place] [phone] 06/22/2022 Diagnostic Pulmonary Medicine Rusty Vee M.D. [address] [place] [phone] 06/22/2022 Appointment Radiology Rusty Vee M.D. [address] [place] [phone] 06/23/2022 Clinical Communication Admitting/Central Scheduling 06/28/2022 Appointment Pulmonary Medicine Rusty Vee M.D. [address] [place] [phone] 06/28/2022 Appointment Pulmonary Medicine Rusty Vee M.D. [address] [place] [phone] documented as of this encounter Visit Diagnoses Not on filedocumented in this encounter
--- OUTSIDE RECORDS SUMMARY | 2022-05-25 21:14 | XMS_ITS | Encounter Summary ---
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 200 [place] [phone] 06/22/2022 Diagnostic Pulmonary Medicine Rusty Vee M.D. 200 [place] [phone] 06/22/2022 Diagnostic Pulmonary Medicine Rusty Vee M.D. 200 [place] [phone] 06/22/2022 Appointment Radiology Rusty Vee M.D. [address] [place] [phone] 06/23/2022 Clinical Communication Admitting/Central Scheduling 06/28/2022 Appointment Pulmonary Medicine Rusty Vee M.D. [address] [place] [phone] 06/28/2022 Appointment Pulmonary Medicine Rusty Vee M.D. [address] [place] [phone] documented as of this encounter Procedures Procedure Name Priority Date/Time Associated Comments Diagnosis PROTHROMBIN TIME Routine 10/25/2012 11:11 Results for this (PT), P AM CDT procedure are i n the results section. documented in this encounter Results PT (Prothrombin Time) with INR (10/25/2012 11:11 AM CDT) P athologist Signature INR 2.44 [facility] Specimen (Source) Anatomical Collection Method Collection Time Re ceived Time Location / / Volume Laterality 10/25/2012 11:11 AM CDT Historical Provider LAB BLOOD ADD-ON Performing Organization Address City/State/ZIP Code Phon e Number [facility] documented in this encounter Visit Diagnoses Not on filedocumented in this encounter
--- OUTSIDE RECORDS SUMMARY | 2022-05-25 21:14 | XMS_ITS | Encounter Summary ---
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 200 [place] [phone] 06/22/2022 Diagnostic Pulmonary Medicine Rusty Vee M.D. 200 [place] [phone] 06/22/2022 Diagnostic Pulmonary Medicine Rusty Vee M.D. [address] [place] [address] 06/22/2022 Appointment Radiology Rusty Vee M.D. [address] [place] [phone] 06/23/2022 Clinical Communication Admitting/Central Scheduling 06/28/2022 Appointment Pulmonary Medicine Rusty Vee M.D. [address] [place] [phone] 06/28/2022 Appointment Pulmonary Medicine Rusty Vee M.D. [address] [place] [phone] documented as of this encounter Procedures Procedure Name Priority Date/Time Associated Comments Diagnosis PROTHROMBIN TIME Routine 06/21/2012 10:36 Results for this (PT), P AM SALES REPRESENTATIVE SUPERVISOR procedure are i n the results section. documented in this encounter Results PT (Prothrombin Time) with INR (06/21/2012 10:36 AM SALES REPRESENTATIVE SUPERVISOR) P athologist Signature INR 3.48 [facility] Specimen (Source) Anatomical Collection Method Collection Time Re ceived Time Location / / Volume Laterality 06/21/2012 10:36 AM SALES REPRESENTATIVE SUPERVISOR Narrative [facility] - 08/25/19 14 10:18 AM SALES REPRESENTATIVE SUPERVISOR Results confirmed by repeat test Historical Provider LAB BLOOD ADD-ON Performing Organization Address City/State/ZIP Code Phon e Number [facility] documented in this encounter Visit Diagnoses Not on filedocumented in this encounter
--- OUTSIDE RECORDS SUMMARY | 2022-05-25 21:14 | XMS_ITS | Encounter Summary ---
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 200 [place] [phone] 06/22/2022 Diagnostic Pulmonary Medicine Rusty Vee M.D. 200 [place] [phone] 06/22/2022 Diagnostic Pulmonary Medicine Rusty Vee M.D. [address] [place] [phone] 06/22/2022 Appointment Radiology Rusty Vee M.D. [address] [place] [phone] 06/23/2022 Clinical Communication Admitting/Central Scheduling 06/28/2022 Appointment Pulmonary Medicine Rusty Vee M.D. [address] [place] [phone] 06/28/2022 Appointment Pulmonary Medicine Rusty Vee M.D. [address] [place] [phone] documented as of this encounter Procedures Procedure Name Priority Date/Time Associated Comments Diagnosis PROTHROMBIN TIME Routine 07/19/2012 11:17 Results for this (PT), P AM FINAL INSPECTOR BALANCE WHEEL procedure are i n the results section. documented in this encounter Results PT (Prothrombin Time) with INR (07/19/2012 11:17 AM FINAL INSPECTOR BALANCE WHEEL) P athologist Signature INR 4.20 [facility] Specimen (Source) Anatomical Collection Method Collection Time Re ceived Time Location / / Volume Laterality 07/19/2012 11:17 AM FINAL INSPECTOR BALANCE WHEEL Historical Provider LAB BLOOD ADD-ON Performing Organization Address City/State/ZIP Code Phon e Number [facility] documented in this encounter Visit Diagnoses Not on filedocumented in this encounter
--- OUTSIDE RECORDS SUMMARY | 2022-05-25 21:14 | XMS_ITS | Encounter Summary ---
:1975 Author Organization [facility] Address [address] [place] [address] Care Team Providers Name Role Phone Unavailable Primary Care Provider Unavailable Encounter Details Date Type Department Care Team Description 08/09/2012 Hospital Encounter [facility]X [facility] Andrea Whipple M.D. 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 [address] [place] [phone] 06/22/2022 Diagnostic Pulmonary Medicine Rusty Vee M.D. [address] [place] [phone] 06/22/2022 Diagnostic Pulmonary Medicine Rusty Vee M.D. [address] [place] [phone] 06/22/2022 Appointment Radiology Rusty Vee M.D. [address] [place] [phone] 06/23/2022 Clinical Communication Admitting/Central Scheduling 06/28/2022 Appointment Pulmonary Medicine Rusty Vee M.D. [address] [place] [phone] 06/28/2022 Appointment Pulmonary Medicine Rusty Vee M.D. [address] [place] [phone] documented as of this encounter Visit Diagnoses Not on filedocumented in this encounter
--- OUTSIDE RECORDS SUMMARY | 2022-05-25 21:14 | XMS_ITS | Encounter Summary ---
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 200 [place] [phone] 06/22/2022 Diagnostic Pulmonary Medicine Rusty Vee M.D. 200 [place] [phone] 06/22/2022 Diagnostic Pulmonary Medicine Rusty Vee M.D. [address] [place] [address] 06/22/2022 Appointment Radiology Rusty Vee M.D. [address] [place] [phone] 06/23/2022 Clinical Communication Admitting/Central Scheduling 06/28/2022 Appointment Pulmonary Medicine Rusty Vee M.D. [address] [place] [phone] 06/28/2022 Appointment Pulmonary Medicine Rusty Vee M.D. [address] [place] [phone] documented as of this encounter Procedures Procedure Name Priority Date/Time Associated Comments Diagnosis PROTHROMBIN TIME Routine 06/12/2012 10:59 Results for this (PT), P AM SERVICE MEMBER procedure are i n the results section. documented in this encounter Results PT (Prothrombin Time) with INR (06/12/2012 10:59 AM SERVICE MEMBER) P athologist Signature INR 1.58 [facility] Specimen (Source) Anatomical Collection Method Collection Time Re ceived Time Location / / Volume Laterality 06/12/2012 10:59 AM SERVICE MEMBER Historical Provider LAB BLOOD ADD-ON Performing Organization Address City/State/ZIP Code Phon e Number [facility] documented in this encounter Visit Diagnoses Not on filedocumented in this encounter
--- OUTSIDE RECORDS SUMMARY | 2022-05-25 21:14 | XMS_ITS | Encounter Summary ---
:1975 Author Organization [facility] Address [address] [place] [address] Care Team Providers Name Role Phone Unavailable Primary Care Provider Unavailable Encounter Details Date Type Department Care Team Description 07/23/2012 Hospital Encounter [facility] Andrea Whipple M.D. 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 [address] [place] [phone] 06/22/2022 Diagnostic Pulmonary Medicine Rusty Vee M.D. [address] [place] [phone] 06/22/2022 Diagnostic Pulmonary Medicine Rusty Vee M.D. [address] [place] [phone] 06/22/2022 Appointment Radiology Rusty Vee M.D. [address] [place] [phone] 06/23/2022 Clinical Communication Admitting/Central Scheduling 06/28/2022 Appointment Pulmonary Medicine Rusty Vee M.D. [address] [place] [phone] 06/28/2022 Appointment Pulmonary Medicine Rusty Vee M.D. [address] [place] [phone] documented as of this encounter Visit Diagnoses Not on filedocumented in this encounter
--- OUTSIDE RECORDS SUMMARY | 2022-05-25 21:14 | XMS_ITS | Encounter Summary ---
:1975 Author Organization [facility] Address [address] [place] [address] Care Team Providers Name Role Phone Unavailable Primary Care Provider Unavailable Encounter Details Date Type Department Care Team Description 08/20/2012 Hospital Encounter 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 200 [place] [phone] 06/22/2022 Diagnostic Pulmonary Medicine Rusty Vee M.D. 200 [place] [phone] 06/22/2022 Diagnostic Pulmonary Medicine Rusty Vee M.D. [address] [place] [phone] 06/22/2022 Appointment Radiology uRsty Vee M.D. [address] [place] [phone] 06/23/2022 Clinical Communication Admitting/Central Scheduling 06/28/2022 Appointment Pulmonary Medicine Rusty Vee M.D. [address] [place] [phone] 06/28/2022 Appointment Pulmonary Medicine Rusty Vee M.D. [address] [place] [phone] documented as of this encounter Visit Diagnoses Not on filedocumented in this encounter
--- OUTSIDE RECORDS SUMMARY | 2022-05-25 21:14 | XMS_ITS | Encounter Summary ---
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 200 [place] [phone] 06/22/2022 Diagnostic Pulmonary Medicine Rusty Vee M.D. 200 [place] [phone] 06/22/2022 Diagnostic Pulmonary Medicine Rusty Vee M.D. [address] [place] [phone] 06/22/2022 Appointment Radiology Rusty Vee M.D. [address] [place] [phone] 06/23/2022 Clinical Communication Admitting/Central Scheduling 06/28/2022 Appointment Pulmonary Medicine Rusty Vee M.D. [address] [place] [phone] 06/28/2022 Appointment Pulmonary Medicine Rusty Vee M.D. [address] [place] [phone] documented as of this encounter Procedures Procedure Name Priority Date/Time Associated Comments Diagnosis PROTHROMBIN TIME Routine 05/15/2012 10:01 Results for this (PT), P AM AMMUNITION ASSEMBLY II LABORER procedure are i n the results section. documented in this encounter Results PT (Prothrombin Time) with INR (05/15/2012 10:01 AM AMMUNITION ASSEMBLY II LABORER) P athologist Signature INR 2.73 [facility] Specimen (Source) Anatomical Collection Method Collection Time Re ceived Time Location / / Volume Laterality 05/15/2012 10:01 AM AMMUNITION ASSEMBLY II LABORER Historical Provider LAB BLOOD ADD-ON Performing Organization Address City/State/ZIP Code Phon e Number [facility] documented in this encounter Visit Diagnoses Not on filedocumented in this encounter
--- OUTSIDE RECORDS SUMMARY | 2022-05-25 21:14 | XMS_ITS | Encounter Summary ---
:1975 Author Organization [facility] Address [address] [place] [id number] Care Team Providers Name Role Phone Unavailable Primary Care Provider Unavailable Encounter Details Date Type Department Care Team Description 08/02/2012 Hospital Encounter HX [facility] Juan Lau M.D. [address] [place] [phone] (Wo rk) Social History [...] Date Recorded Female 05/03/2022 7:07 PM [employer] documented as of this encounter Progress Notes Conversion, Historical Provider Ser - 08/02/2012 3:30 PM CST [id number] artat1{\leveltext \'02\'05.}{\levelnumbers \'01}}{\listlevel\levelnfc0\levelfollow0\levelstartat1{\leveltext \'02\'06.}{\levelnumbers \'01}}{\listlevel\levelnfc0\levelfollow0\levelstartat1{\leveltext \' \07.}{\levelnumbers \'01}}{\listlevel\levelnfc0\levelfollow0\levelstartat1{\leveltext \'\08.}{\ levelnumbers \'01}}{\listname HTML-List1;}\[id number]}{\list\listtemplateid2{\listlevel\levelnf c23\levelfollow0\levelstartat1{\leveltext \'\'b7}{\levelnumbers}\f1\fcs1\f1\af1\fcs0\rtlch\f1\af1\l trch\fs20}{\listlevel\levelnfc0\levelfollow0\levelstartat1{\leveltext \'02\'01.}{\levelnumbers \'01}} {\listlevel\levelnfc0\levelfollow0\levelstartat1{\leveltext \'02\'02.}{\levelnumbers \'01}}{\listleve l\levelnfc0\levelfollow0\levelstartat1{\leveltext \'02\'03.}{\levelnumbers \'01}}{\listlevel\levelnfc0\levelfollow0\levelstartat1{\leveltext \'02\'04.}{\levelnumbers \'01}}{\listlevel\levelnfc0\levelfol low0\levelstartat1{\leveltext \'02\'05.}{\levelnumbers \'01}}{\listlevel\levelnfc0\levelfollow0\levelstartat1{\leveltext \'02\'06.}{\levelnumbers \'01}}{\listlevel\levelnfc0\levelfollow0\levelstartat1{\leveltext \'02\'07.}{\levelnumbers \'01}}{\listlevel\levelnfc0\levelfollow0\levelstartat1{\leveltext \'02\'08.}{\levelnumbers \'01}}{\listname HTML-List2;}\[id number]}{\list\listtemplateid3{\listl evel\vfekvarq32\levelfollow0\levelstartat1{\leveltext \'01\'b7}{\levelnumbers}\f1\fcs1\f1\af1\fcs0\rt lch\f1\af1\ltrch\fs20}{\listlevel\levelnfc0\levelfollow0\levelstartat1{\leveltex t \'02\'01.}{\levelnumbers \'01}}{\listlevel\levelnfc0\levelfollow0\levelstartat1{\leveltext \'02\'02.}{\levelnumbers \'01 }}{\listlevel\levelnfc0\levelfollow0\levelstartat1{\leveltext \'02\'03.}{\levelnumbers \'01}}{\listle gilma\levelnfc0\levelfollow0\levelstartat1{\leveltext \'02\'04.}{\levelnumbers \'01}}{\listlevel\levelnfc0\levelfollow0\levelstartat1{\leveltext \'02\'05.}{\levelnumbers \'01}}{\listlevel\levelnfc0\levelf ollow0\levelstartat1{\leveltext \'02\'06.}{\levelnumbers \'01}}{\listlevel\levelnfc0\levelfollow0\levelstartat1{\leveltext \'02\'07.}{\levelnumbers \'01}}{\listlevel\levelnfc0\levelfollow0\levelstartat1 {\leveltext \'02\'08.}{\levelnumbers \'01}}{\listname HTML-List3;}\[id number]}{\list\listtempla teid4{\listlevel\yrwtgtal05\levelfollow0\levelstartat1{\leveltext \'01\'b7}{\levelnumbers}\f1\fcs1\f1 \af1\fcs0\rtlch\f1\af1\ltrch\fs20}{\listlevel\levelnfc0\levelfollow0\levelstarta t1{\leveltext \'02\'01.}{\levelnumbers \'01}}{\listlevel\levelnfc0\levelfollow0\levelstartat1{\leveltext \'02\'02.}{\levelnumbers \'01}}{\listlevel\levelnfc0\levelfollow0\levelstartat1{\leveltext \'02\'03.}{\levelnumbers \' 01}}{\listlevel\levelnfc0\levelfollow0\levelstartat1{\leveltext \'02\'04.}{\levelnumbers \'01}}{\list level\levelnfc0\levelfollow0\levelstartat1{\leveltext \'02\'05.}{\levelnumbers \'01}}{\listlevel\levelnfc0\levelfollow0\levelstartat1{\leveltext \'02\'06.}{\levelnumbers \'01}}{\listlevel\levelnfc0\leve lfollow0\levelstartat1{\leveltext \'02\'07.}{\levelnumbers \'01}}{\listlevel\levelnfc0\levelfollow0\levelstartat1{\leveltext \'02\'08.}{\levelnumbers \'01}}{\listname HTML-List4;}\[id number]}{\lis t\bvxsibemjwlazw36{\listlevel\levelnfc0\levelfollow0\levelstartat1{\leveltext \'02\'00.}{\levelnumbers \'01}}{\listlevel\levelnfc0\levelfollow0\levelstartat1{\leveltext \'02\'01.}{\levelnumbers \'01}}{\ listlevel\levelnfc0\levelfollow0\levelstartat1{\leveltext \'02\'02.}{\levelnumbers \'01}}{\listlevel\ levelnfc0\levelfollow0\levelstartat1{\leveltext \'02\'03.}{\levelnumbers \'01}}{\listlevel\levelnfc0\levelfollow0\levelstartat1{\leveltext \'02\'04.}{\levelnumbers \'01}}{\listlevel\levelnfc0\levelfollo w0\levelstartat1{\leveltext \'02\'05.}{\levelnumbers \'01}}{\listlevel\levelnfc0\levelfollow0\levelstartat1{\leveltext \'02\'06.}{\levelnumbers \'01}}{\listlevel\levelnfc0\levelfollow0\levelstartat1{\leveltext \'02\'07.}{\levelnumbers \'01}}{\listlevel\levelnfc0\levelfollow0\levelstartat1{\leveltext \' 02\'08.}{\levelnumbers \'01}}{\listname [id number];}\[id number]}{\list\feyaoqgeivafak10{\ listlevel\levelnfc0\levelfollow0\levelstartat1{\leveltext \'02\'00.}{\levelnumbers \'01}}{\listlevel\ levelnfc0\levelfollow0\levelstartat1{\leveltext \'02\'01.}{\levelnumbers \'01}}{\listlevel\levelnfc0\levelfollow0\levelstartat1{\leveltext \'02\'02.}{\levelnumbers \'01}}{\listlevel\levelnfc0\levelfollo w0\levelstartat1{\leveltext \'02\'03.}{\levelnumbers \'01}}{\listlevel\levelnfc0\levelfollow0\levelstartat1{\leveltext \'02\'04.}{\levelnumbers \'01}}{\listlevel\levelnfc0\levelfollow0\levelstartat1{\leveltext \'02\'05.}{\levelnumbers \'01}}{\listlevel\levelnfc0\levelfollow0\levelstartat1{\leveltext \' 02\'06.}{\levelnumbers \'01}}{\listlevel\levelnfc0\levelfollow0\levelstartat1{\leveltext \'02\'07.}{\ levelnumbers \'01}}{\listlevel\levelnfc0\levelfollow0\levelstartat1{\leveltext \'02\'08.}{\levelnumbers \'01}}{\listname [id number]_5;}\[id number]}{\list\smrvckwbwrsnvo27{\listlevel\levelnfc0 \levelfollow0\levelstartat1{\leveltext \'02\'00.}{\levelnumbers \'01}}{\listlevel\levelnfc0\levelfollow0\levelstartat1{\leveltext \'02\'01.}{\levelnumbers \'01}}{\listlevel\levelnfc0\levelfollow0\levelst artat1{\leveltext \'02\'02.}{\levelnumbers \'01}}{\listlevel\levelnfc0\levelfollow0\levelstartat1{\leveltext \'02\'03.}{\levelnumbers \'01}}{\listlevel\levelnfc0\levelfollow0\levelstartat1{\leveltext \' 02\'04.}{\levelnumbers \'01}}{\listlevel\levelnfc0\levelfollow0\levelstartat1{\leveltext \'02\'05.}{\ levelnumbers \'01}}{\listlevel\levelnfc0\levelfollow0\levelstartat1{\leveltext \'02\'06.}{\levelnumbers \'01}}{\listlevel\levelnfc0\levelfollow0\levelstartat1{\leveltext \'02\'07.}{\levelnumbers \'01}}{ \listlevel\levelnfc0\levelfollow0\levelstartat1{\leveltext \'02\'08.}{\levelnumbers \'01}}{\listname [id number];}\[phone]}{\list\cgybqxuwhlabno35{\listlevel\levelnfc0 \levelfollow0\levelstartat1{\leveltext \'02\'00.}{\levelnumbers \'01}}{\listlevel\levelnfc0\levelfollow0\levelstartat1{\leveltext \'02\'01.}{\levelnumbers \'01}}{\listlevel\levelnfc0\levelfollow0\levelstartat1{\leveltext \' 02\'02.}{\levelnumbers \'01}}{\listlevel\levelnfc0\levelfollow0\levelstartat1{\leveltext \'02\'03.}{\ levelnumbers \'01}}{\listlevel\levelnfc0\levelfollow0\levelstartat1{\leveltext \'02\04.}{\levelnumbers \'01}}{\listlevel\levelnfc0\levelfollow0\levelstartat1{\leveltext \'02\05.}{\levelnumbers \'01}}{ \listlevel\levelnfc0\levelfollow0\levelstartat1{\leveltext \'02\06.}{\levelnumbers \'01}}{\listlevel \levelnfc0\levelfollow0\levelstartat1{\leveltext \'02\07.}{\levelnumbers \'01}}{\listlevel\levelnfc0\levelfollow0\levelstartat1{\leveltext \'02\08.}{\levelnumbers \'01}}{\listname [id number];}\l [id number]}{\list\baxaavxenojuby21{\listlevel\levelnfc0\levelfollow0\levels tartat1{\leveltext \'02\'00.}{\levelnumbers \'01}}{\listlevel\levelnfc0\levelfollow0\levelstartat1{\leveltext \'02\'01.}{\ levelnumbers \'01}}{\listlevel\levelnfc0\levelfollow0\levelstartat1{\leveltext \'02\'02.}{\levelnumbers \'01}}{\listlevel\levelnfc0\levelfollow0\levelstartat1{\leveltext \'02\'03.}{\levelnumbers \'01}}{ \listlevel\levelnfc0\levelfollow0\levelstartat1{\leveltext \'02\'04.}{\levelnumbers \'01}}{\listlevel \levelnfc0\levelfollow0\levelstartat1{\leveltext \'02\'05.}{\levelnumbers \'01}}{\listlevel\levelnfc0\levelfollow0\levelstartat1{\leveltext \'02\'06.}{\levelnumbers \'01}}{\listlevel\levelnfc0\levelfoll ow0\levelstartat1{\leveltext \'02\'07.}{\levelnumbers \'01}}{\listlevel\levelnfc0\levelfollow0\levelstartat1{\leveltext \'02\'08.}{\levelnumbers \'01}}{\listname [id number];}\[id number]}{\li st\laldqsuurbhzwz97{\listlevel\levelnfc0\levelfollow0\levelstartat1{\leveltext \'02\'00.}{\levelnumbers \'01}}{\listlevel\levelnfc0\levelfollow0\levelstartat1{\leveltext \'02\'01.}{\levelnumbers \'01}}{ \listlevel\levelnfc0\levelfollow0\levelstartat1{\leveltext \'02\'02.}{\levelnumbers \'01}}{\listlevel \levelnfc0\levelfollow0\levelstartat1{\leveltext \'02\'03.}{\levelnumbers \'01}}{\listlevel\levelnfc0\levelfollow0\levelstartat1{\leveltext \'02\'04.}{\levelnumbers \'01}}{\listlevel\levelnfc0\levelfoll ow0\levelstartat1{\leveltext \'02\'05.}{\levelnumbers \'01}}{\listlevel\levelnfc0\levelfollow0\levelstartat1{\leveltext \'02\'06.}{\levelnumbers \'01}}{\listlevel\levelnfc0\levelfollow0\levelstartat1{\leveltext \'02\07.}{\levelnumbers \'01}}{\listlevel\levelnfc0\levelfollow0\levelstartat1{\leveltext \ '02\08.}{\levelnumbers \'01}}{\listname [id number]_1;}\dkohjk2034489645}{\list\qtehiuctgecotf67{ \listlevel\levelnfc0\levelfollow0\levelstartat1{\leveltext \'02\'00.}{\levelnumbers \'01}}{\listlevel \levelnfc0\levelfollow0\levelstartat1{\leveltext \'02\.}{\levelnumbers \'01}}{\listlevel\levelnfc0\levelfollow0\levelstartat1{\leveltext \'02\'02.}{\levelnumbers \'01}}{\listlevel\levelnfc0\levelfoll ow0\levelstartat1{\leveltext \'02\'03.}{\levelnumbers \'01}}{\listlevel\levelnfc0\levelfollow0\levelstartat1{\leveltext \'02\'04.}{\levelnumbers \'01}}{\listlevel\levelnfc0\levelfollow0\levelstartat1{\leveltext \'02\'05.}{\levelnumbers \'01}}{\listlevel\levelnfc0\levelfollow0\levelstartat1{\leveltext \ '02\'06.}{\levelnumbers \'01}}{\listlevel\levelnfc0\levelfollow0\levelstartat1{\leveltext \'02\'07.}{ \levelnumbers \'01}}{\listlevel\levelnfc0\levelfollow0\levelstartat1{\leveltext \'02\'08.}{\levelnumbers \'01}}{\listname [id number];}\[id number]}{\list\nmcvyzpoluuvvk63{\listlevel\levelnfc0 \levelfollow0\levelstartat1{\leveltext \'02\'00.}{\levelnumbers \'01}}{\listlevel\levelnfc0\levelfollow0\levelstartat1{\leveltext \'02\'01.}{\levelnumbers \'01}}{\listlevel\levelnfc0\levelfollow0\levels tartat1{\leveltext \'02\'02.}{\levelnumbers \'01}}{\listlevel\levelnfc0\levelfollow0\levelstartat1{\leveltext \'02\'03.}{\levelnumbers \'01}}{\listlevel\levelnfc0\levelfollow0\levelstartat1{\leveltext \ '02\'04.}{\levelnumbers \'01}}{\listlevel\levelnfc0\levelfollow0\levelstartat1{\leveltext \'02\'05.}{ \levelnumbers \'01}}{\listlevel\levelnfc0\levelfollow0\levelstartat1{\leveltext \'02\'06.}{\levelnumbers \'01}}{\listlevel\levelnfc0\levelfollow0\levelstartat1{\leveltext \'02\'07.}{\levelnumbers \'01}} {\listlevel\levelnfc0\levelfollow0\levelstartat1{\leveltext \'02\'08.}{\levelnumbers \'01}}{\listname Vnqu4555718076_3;}\[id number]}{\list\wsnnolshmixodt15{\listlevel\levelnfc0 \levelfollow0\levelstartat1{\leveltext \'02\'00.}{\levelnumbers \'01}}{\listlevel\levelnfc0\levelfollow0\levelstartat1{\leveltext \'02\'01.}{\levelnumbers \'01}}{\listlevel\levelnfc0\levelfollow0\levelstartat1{\leveltext \ '02\'02.}{\levelnumbers \'01}}{\listlevel\levelnfc0\levelfollow0\levelstartat1{\leveltext \'02\'03.}{ \levelnumbers \'01}}{\listlevel\levelnfc0\levelfollow0\levelstartat1{\leveltext \'02\'04.}{\levelnumbers \'01}}{\listlevel\levelnfc0\levelfollow0\levelstartat1{\leveltext \'02\'05.}{\levelnumbers \'01}} {\listlevel\levelnfc0\levelfollow0\levelstartat1{\leveltext \'02\'06.}{\levelnumbers \'01}}{\listleve l\levelnfc0\levelfollow0\levelstartat1{\leveltext \'02\'07.}{\levelnumbers \'01}}{\listlevel\levelnfc0\levelfollow0\levelstartat1{\leveltext \'02\'08.}{\levelnumbers \'01}}{\listname [id number];}\ [id number]}{\list\qlmkfsxlvdkunr28{\listlevel\levelnfc0\levelfollow0\level startat1{\leveltext \'02\'00.}{\levelnumbers \'01}}{\listlevel\levelnfc0\levelfollow0\levelstartat1{\leveltext \'02\'01.}{ \levelnumbers \'01}}{\listlevel\levelnfc0\levelfollow0\levelstartat1{\leveltext \'02\02.}{\levelnumbers \'01}}{\listlevel\levelnfc0\levelfollow0\levelstartat1{\leveltext \'02\03.}{\levelnumbers \'01}} {\listlevel\levelnfc0\levelfollow0\levelstartat1{\leveltext \'02\04.}{\levelnumbers \'01}}{\listleve l\levelnfc0\levelfollow0\levelstartat1{\leveltext \'02\05.}{\levelnumbers \'01}}{\listlevel\levelnfc0\levelfollow0\levelstartat1{\leveltext \'\06.}{\levelnumbers \'01}}{\listlevel\levelnfc0\levelfol low0\levelstartat1{\leveltext \'\07.}{\levelnumbers \'01}}{\listlevel\levelnfc0\levelfollow0\levelstartat1{\leveltext \'02\08.}{\levelnumbers \'01}}{\listname [id number];}\[id number]}{\l ist\vnrfyazqmyugkm87{\listlevel\levelnfc0\levelfollow0\levelstartat1{\leveltext \'02\'00.}{\levelnumbers \'01}}{\listlevel\levelnfc0\levelfollow0\levelstartat1{\leveltext \'02\'01.}{\levelnumbers \'01}} {\listlevel\levelnfc0\levelfollow0\levelstartat1{\leveltext \'02\'02.}{\levelnumbers \'01}}{\listleve l\levelnfc0\levelfollow0\levelstartat1{\leveltext \'\03.}{\levelnumbers \'01}}{\listlevel\levelnfc0\levelfollow0\levelstartat1{\leveltext \'02\'04.}{\levelnumbers \'01}}{\listlevel\levelnfc0\levelfol low0\levelstartat1{\leveltext \'02\'05.}{\levelnumbers \'01}}{\listlevel\levelnfc0\levelfollow0\levelstartat1{\leveltext \'02\'06.}{\levelnumbers \'01}}{\listlevel\levelnfc0\levelfollow0\levelstartat1{\leveltext \'02\'07.}{\levelnumbers \'01}}{\listlevel\levelnfc0\levelfollow0\levelstartat1{\leveltext \'02\'08.}{\levelnumbers \'01}}{\listname [id number];}\[id number]}{\list\listtemplateid-1 [id number]{\listlevel\jjwuxmiw47\levelfollow0\levelstartat1{\leveltext \'01\d60922 ?}{\levelnumbers}\f2 }{\listlevel\bgscblaq54\levelfollow0\levelstartat1{\leveltext \'01o}{\levelnumbers}\f3}{\listlevel\le hfroua53\levelfollow0\levelstartat1{\leveltext \'01\v42344 ?}{\levelnumbers}\f4}{\listlevel\levelnfc2 3\levelfollow0\levelstartat1{\leveltext \'01\n23086 ?}{\levelnumbers}\f2}{\listlevel\ysrqwnnq93\level follow0\levelstartat1{\leveltext \'01o}{\levelnumbers}\f3}{\listlevel\kkomuynz06\levelfollow0\levelst artat1{\leveltext \'01\n16326 ?}{\levelnumbers}\f4}{\listlevel\gbaoeucr71\levelfollow0\levelstartat1{ \leveltext \'01\f19902 ?}{\levelnumbers}\f2}{\listlevel\kufqmmug24\levelfollow0\levelstartat1{\levelt ext \'01o}{\levelnumbers}\f3}{\listlevel\cspmfuif90\levelfollow0\levelstartat1{\leve ltext \'01\l50425 ?}{\levelnumbers}\f4}{\listname ;}\[id number]}{\list\riyxuobgywnwtb48{\listlevel\levelnfc0\leve lfollow0\levelstartat1{\leveltext \'02\'00.}{\levelnumbers \'01}}{\listlevel\levelnfc0\levelfollow0\levelstartat1{\leveltext \'02\'01.}{\levelnumbers \'01}}{\listlevel\levelnfc0\levelfollow0\levelstarta t1{\leveltext \'02\'02.}{\levelnumbers \'01}}{\listlevel\levelnfc0\levelfollow0\levelstartat1{\leveltext \'02\'03.}{\levelnumbers \'01}}{\listlevel\levelnfc0\levelfollow0\levelstartat1{\leveltext \'02\' 04.}{\levelnumbers \'01}}{\listlevel\levelnfc0\levelfollow0\levelstartat1{\leveltext \'02\'05.}{\levelnumbers \'01}}{\listlevel\levelnfc0\levelfollow0\levelstartat1{\leveltext \'02\'06.}{\levelnumbers \ '01}}{\listlevel\levelnfc0\levelfollow0\levelstartat1{\leveltext \'02\07.}{\levelnumbers \'01}}{\lis tlevel\levelnfc0\levelfollow0\levelstartat1{\leveltext \'02\08.}{\levelnumbers \'01}}{\listname List [id number];}\[id number]}{\list\sabtthsnqblqje45{\listlevel\levelnfc0\lev elfollow0\levelstartat1{\leveltext \'02\'00.}{\levelnumbers \'01}}{\listlevel\levelnfc0\levelfollow0\levelstartat1{\leveltext \'02\.}{\levelnumbers \'01}}{\listlevel\levelnfc0\levelfollow0\levelstartat1{\leveltext \'\ 02.}{\levelnumbers \'01}}{\listlevel\levelnfc0\levelfollow0\levelstartat1{\leveltext \'02\'03.}{\levelnumbers \'01}}{\listlevel\levelnfc0\levelfollow0\levelstartat1{\leveltext \'02\04.}{\levelnumbers \ '01}}{\listlevel\levelnfc0\levelfollow0\levelstartat1{\leveltext \'02\05.}{\levelnumbers \'01}}{\lis tlevel\levelnfc0\levelfollow0\levelstartat1{\leveltext \'02\'06.}{\levelnumbers \'01}}{\listlevel\levelnfc0\levelfollow0\levelstartat1{\leveltext \'\07.}{\levelnumbers \'01}}{\listlevel\levelnfc0\lev elfollow0\levelstartat1{\leveltext \'\08.}{\levelnumbers \'01}}{\listname [id number];}\listi [id number]}{\list\listtemplateid1{\listlevel\levelnfc0\levelfollow0\levelstarta t1{\leveltext \'02\'00.}{\levelnumbers \'01}}{\listlevel\levelnfc0\levelfollow0\levelstartat1{\leveltext \'02\'01.}{\levelnumbers \'01}}{\listlevel\levelnfc0\levelfollow0\levelstartat1{\leveltext \'02\'02.}{\levelnumbers \' 01}}{\listlevel\levelnfc0\levelfollow0\levelstartat1{\leveltext \'02\'03.}{\levelnumbers \'01}}{\list level\levelnfc0\levelfollow0\levelstartat1{\leveltext \'02\'04.}{\levelnumbers \'01}}{\listlevel\levelnfc0\levelfollow0\levelstartat1{\leveltext \'02\'05.}{\levelnumbers \'01}}{\listlevel\levelnfc0\leve lfollow0\levelstartat1{\leveltext \'02\'06.}{\levelnumbers \'01}}{\listlevel\levelnfc0\levelfollow0\levelstartat1{\leveltext \'02\'07.}{\levelnumbers \'01}}{\listlevel\levelnfc0\levelfollow0\levelstarta t1{\leveltext \'02\'08.}{\levelnumbers \'01}}{\listname [id number];}\[id number]}{\list\li dghczhawsuyo44{\listlevel\levelnfc0\levelfollow0\levelstartat1{\leveltext \'02\'00.}{\levelnumbers \' 01}}{\listlevel\levelnfc0\levelfollow0\levelstartat1{\leveltext \'02\.}{\levelnumbers \'01}}{\list level\levelnfc0\levelfollow0\levelstartat1{\leveltext \'02\02.}{\levelnumbers \'}}{\listlevel\levelnfc0\levelfollow0\levelstartat1{\leveltext \'02\03.}{\levelnumbers \'}}{\listlevel\levelnfc0\leve lfollow0\levelstartat1{\leveltext \'02\04.}{\levelnumbers \'}}{\listlevel\levelnfc0\levelfollow0\levelstartat1{\leveltext \'\05.}{\levelnumbers \'}}{\listlevel\levelnfc0\levelfollow0\levelstarta t1{\leveltext \'02\'06.}{\levelnumbers \'}}{\listlevel\levelnfc0\levelfollow0\levelstartat1{\leveltext \'02\07.}{\levelnumbers \'01}}{\listlevel\levelnfc0\levelfollow0\levelstartat1{\leveltext \'02\ 08.}{\levelnumbers \'01}}{\listname [id number];}\[id number]}{\list\ymqrupbzbgdxmq86{\list level\levelnfc0\levelfollow0\levelstartat1{\leveltext \'02\'00.}{\levelnumbers \'01}}{\listlevel\levelnfc0\levelfollow0\levelstartat1{\leveltext \'02\'.}{\levelnumbers \'}}{\listlevel\levelnfc0\leve lfollow0\levelstartat1{\leveltext \'02\'02.}{\levelnumbers \'01}}{\listlevel\levelnfc0\levelfollow0\levelstartat1{\leveltext \'02\03.}{\levelnumbers \'01}}{\listlevel\levelnfc0\levelfollow0\levelstarta t1{\leveltext \'02\04.}{\levelnumbers \'01}}{\listlevel\levelnfc0\levelfollow0\levelstartat1{\leveltext \'02\05.}{\levelnumbers \'01}}{\listlevel\levelnfc0\levelfollow0\levelstartat1{\leveltext \'02\' 06.}{\levelnumbers \'01}}{\listlevel\levelnfc0\levelfollow0\levelstartat1{\leveltext \'02\07.}{\levelnumbers \'01}}{\listlevel\levelnfc0\levelfollow0\levelstartat1{\leveltext \'02\08.}{\levelnumbers \'01}}{\listname Ebaa6226579659_5;}\[id number]}{\list\qicrixlunqpqgh36{\listlevel\levelnfc0 \levelfollow0\levelstartat1{\leveltext \'02\'00.}{\levelnumbers \'01}}{\listlevel\levelnfc0\levelfollow0\levelstartat1{\leveltext \'02\'01.}{\levelnumbers \'01}}{\listlevel\levelnfc0\levelfollow0\levelstarta t1{\leveltext \'02\'02.}{\levelnumbers \'01}}{\listlevel\levelnfc0\levelfollow0\levelstartat1{\leveltext \'02\'03.}{\levelnumbers \'01}}{\listlevel\levelnfc0\levelfollow0\levelstartat1{\leveltext \'\ 04.}{\levelnumbers \'01}}{\listlevel\levelnfc0\levelfollow0\levelstartat1{\leveltext \'02\05.}{\levelnumbers \'01}}{\listlevel\levelnfc0\levelfollow0\levelstartat1{\leveltext \'02\06.}{\levelnumbers \ '01}}{\listlevel\levelnfc0\levelfollow0\levelstartat1{\leveltext \'\.}{\levelnumbers \'}}{\lis tlevel\levelnfc0\levelfollow0\levelstartat1{\leveltext \'\08.}{\levelnumbers \'}}{\listname List [id number];}\[id number]}{\list\aviplpwdckqmmp04{\listlevel\levelnfc0\lev elfollow0\levelstartat1{\leveltext \'\'00.}{\levelnumbers \'}}{\listlevel\levelnfc0\levelfollow0\levelstartat1{\leveltext \'\.}{\levelnumbers \'}}{\listlevel\levelnfc0\levelfollow0\levelstartat1{\leveltext \'\ 02.}{\levelnumbers \'01}}{\listlevel\levelnfc0\levelfollow0\levelstartat1{\leveltext \'\03.}{\levelnumbers \'01}}{\listlevel\levelnfc0\levelfollow0\levelstartat1{\leveltext \'\04.}{\levelnumbers \ '01}}{\listlevel\levelnfc0\levelfollow0\levelstartat1{\leveltext \'02\05.}{\levelnumbers \'01}}{\lis tlevel\levelnfc0\levelfollow0\levelstartat1{\leveltext \'02\06.}{\levelnumbers \'01}}{\listlevel\levelnfc0\levelfollow0\levelstartat1{\leveltext \'02\07.}{\levelnumbers \'01}}{\listlevel\levelnfc0\lev elfollow0\levelstartat1{\leveltext \'02\08.}{\levelnumbers \'01}}{\listname [id number];}\listi [id number]}{\list\xhlmhbtrlyksym24{\listlevel\levelnfc0\levelfollow0\levelstart at1{\leveltext \'02\'00.}{\levelnumbers \'01}}{\listlevel\levelnfc0\levelfollow0\levelstartat1{\leveltext \'02\'01.}{\levelnumbers \'01}}{\listlevel\levelnfc0\levelfollow0\levelstartat1{\leveltext \'02\'02.}{\levelnumbers \ '01}}{\listlevel\levelnfc0\levelfollow0\levelstartat1{\leveltext \'02\'03.}{\levelnumbers \'01}}{\lis tlevel\levelnfc0\levelfollow0\levelstartat1{\leveltext \'02\'04.}{\levelnumbers \'01}}{\listlevel\levelnfc0\levelfollow0\levelstartat1{\leveltext \'02\'05.}{\levelnumbers \'01}}{\listlevel\levelnfc0\lev elfollow0\levelstartat1{\leveltext \'02\'06.}{\levelnumbers \'01}}{\listlevel\levelnfc0\levelfollow0\levelstartat1{\leveltext \'02\07.}{\levelnumbers \'01}}{\listlevel\levelnfc0\levelfollow0\levelstart at1{\leveltext \'02\08.}{\levelnumbers \'01}}{\listname [id number];}\[id number]}{\list\l zodvenqqfoisj79{\listlevel\levelnfc0\levelfollow0\levelstartat1{\leveltext \'02\'00.}{\levelnumbers \ '01}}{\listlevel\levelnfc0\levelfollow0\levelstartat1{\leveltext \'02\'.}{\levelnumbers \'01}}{\lis tlevel\levelnfc0\levelfollow0\levelstartat1{\leveltext \'02\'02.}{\levelnumbers \'01}}{\listlevel\levelnfc0\levelfollow0\levelstartat1{\leveltext \'02\'03.}{\levelnumbers \'01}}{\listlevel\levelnfc0\lev elfollow0\levelstartat1{\leveltext \'02\'04.}{\levelnumbers \'01}}{\listlevel\levelnfc0\levelfollow0\levelstartat1{\leveltext \'02\'05.}{\levelnumbers \'01}}{\listlevel\levelnfc0\levelfollow0\levelstart at1{\leveltext \'02\'06.}{\levelnumbers \'01}}{\listlevel\levelnfc0\levelfollow0\levelstartat1{\leveltext \'02\07.}{\levelnumbers \'01}}{\listlevel\levelnfc0\levelfollow0\levelstartat1{\leveltext \'02\ '08.}{\levelnumbers \'01}}{\listname [id number];}\[id number]}{\list\aueiwzmbzyrauj51{\lis tlevel\levelnfc0\levelfollow0\levelstartat1{\leveltext \'02\'00.}{\levelnumbers \'01}}{\listlevel\levelnfc0\levelfollow0\levelstartat1{\leveltext \'02\'01.}{\levelnumbers \'01}}{\listlevel\levelnfc0\lev elfollow0\levelstartat1{\leveltext \'02\'02.}{\levelnumbers \'01}}{\listlevel\levelnfc0\levelfollow0\levelstartat1{\leveltext \'02\'03.}{\levelnumbers \'01}}{\listlevel\levelnfc0\levelfollow0\levelstart at1{\leveltext \'02\'04.}{\levelnumbers \'01}}{\listlevel\levelnfc0\levelfollow0\levelstartat1{\leveltext \'02\'05.}{\levelnumbers \'01}}{\listlevel\levelnfc0\levelfollow0\levelstartat1{\leveltext \'02\ '06.}{\levelnumbers \'01}}{\listlevel\levelnfc0\levelfollow0\levelstartat1{\leveltext \'02\'07.}{\levelnumbers \'01}}{\listlevel\levelnfc0\levelfollow0\levelstartat1{\leveltext \'02\'08.}{\levelnumbers\'01}}{\listname [id number];}\[id number]}{\list\dzwtqowoqnnblo09{\listlevel\levelnfc0 \levelfollow0\levelstartat1{\leveltext \'02\'00.}{\levelnumbers \'01}}{\listlevel\levelnfc0\levelfollow0\levelstartat1{\leveltext \'02\'01.}{\levelnumbers \'01}}{\listlevel\levelnfc0\levelfollow0\levelstart at1{\leveltext \'02\'02.}{\levelnumbers \'01}}{\listlevel\levelnfc0\levelfollow0\levelstartat1{\leveltext \'02\'03.}{\levelnumbers \'01}}{\listlevel\levelnfc0\levelfollow0\levelstartat1{\leveltext \'02\ '04.}{\levelnumbers \'01}}{\listlevel\levelnfc0\levelfollow0\levelstartat1{\leveltext \'02\'05.}{\levelnumbers \'01}}{\listlevel\levelnfc0\levelfollow0\levelstartat1{\leveltext \'02\'06.}{\levelnumbers \'01}}{\listlevel\levelnfc0\levelfollow0\levelstartat1{\leveltext \'02\'07.}{\levelnumbers \'01}}{\li stlevel\levelnfc0\levelfollow0\levelstartat1{\leveltext \'02\'08.}{\levelnumbers \'01}}{\listname Lis [id number];}\[id number]}{\list\obqxqesbcpqxsh40{\listlevel\levelnfc0\le velfollow0\levelstartat1{\leveltext \'02\'00.}{\levelnumbers \'01}}{\listlevel\levelnfc0\levelfollow0\levelstartat1{\leveltext \'02\'01.}{\levelnumbers \'01}}{\listlevel\levelnfc0\levelfollow0\levelstartat1{\leveltext \'02\ 02.}{\levelnumbers \'01}}{\listlevel\levelnfc0\levelfollow0\levelstartat1{\leveltext \'02\03.}{\levelnumbers \'01}}{\listlevel\levelnfc0\levelfollow0\levelstartat1{\leveltext \'02\04.}{\levelnumbers \'01}}{\listlevel\levelnfc0\levelfollow0\levelstartat1{\leveltext \'02\05.}{\levelnumbers \'}}{\li stlevel\levelnfc0\levelfollow0\levelstartat1{\leveltext \'02\06.}{\levelnumbers \'01}}{\listlevel\levelnfc0\levelfollow0\levelstartat1{\leveltext \'02\'07.}{\levelnumbers \'01}}{\listlevel\levelnfc0\le velfollow0\levelstartat1{\leveltext \'02\'08.}{\levelnumbers \'01}}{\listname [id number];}\list [id number]}{\list\qjngzkiyplgzyo84{\listlevel\levelnfc0\levelfollow0\levelstar tat1{\leveltext \'02\'00.}{\levelnumbers \'01}}{\listlevel\levelnfc0\levelfollow0\levelstartat1{\leveltext \'02\'.}{\levelnumbers \'01}}{\listlevel\levelnfc0\levelfollow0\levelstartat1{\leveltext \'02\'02.}{\levelnumbers \'01}}{\listlevel\levelnfc0\levelfollow0\levelstartat1{\leveltext \'02\'03.}{\levelnumbers \'01}}{\li stlevel\levelnfc0\levelfollow0\levelstartat1{\leveltext \'02\'04.}{\levelnumbers \'01}}{\listlevel\levelnfc0\levelfollow0\levelstartat1{\leveltext \'02\'05.}{\levelnumbers \'01}}{\listlevel\levelnfc0\le velfollow0\levelstartat1{\leveltext \'02\'06.}{\levelnumbers \'01}}{\listlevel\levelnfc0\levelfollow0\levelstartat1{\leveltext \'02\'07.}{\levelnumbers \'01}}{\listlevel\levelnfc0\levelfollow0\levelstar tat1{\leveltext \'02\'08.}{\levelnumbers \'01}}{\listname Gqcj8024550188_6;}\[id number]}{\list\ listtemplateid2{\listlevel\levelnfc0\levelfollow0\levelstartat1{\leveltext \'02\'00.}{\levelnumbers \ '01}\fcs1\f5\af5\fcs0\rtlch\f5\af5\ltrch\fs22}{\listlevel\levelnfc0\levelfollow0 \levelstartat1{\leveltext \'02\'01.}{\levelnumbers \'01}\fcs1\f5\af5\fcs0\rtlch\f5\af5\ltrch\fs22}{\listlevel\levelnfc0\le velfollow0\levelstartat1{\leveltext \'02\'02.}{\levelnumbers \'01}\fcs1\f5\af5\fcs0\rtlch\f5\af5\ltrc h\fs22}{\listlevel\levelnfc0\levelfollow0\levelstartat1{\leveltext \'02\'03.}{\levelnumbers \'01}\fcs 1\f5\af5\fcs0\rtlch\f5\af5\ltrch\fs22}{\listlevel\levelnfc0\levelfollow0\levelst artat1{\leveltext \'02\'04.}{\levelnumbers \'01}\fcs1\f5\af5\fcs0\rtlch\f5\af5\ltrch\fs22}{\listlevel\levelnfc0\levelfollo w0\levelstartat1{\leveltext \'02\'05.}{\levelnumbers \'01}\fcs1\f5\af5\fcs0\rtlch\f5\af5\ltrch\fs22}{ \listlevel\levelnfc0\levelfollow0\levelstartat1{\leveltext \'02\'06.}{\levelnumbers \'01}\fcs1\f5\af5 \fcs0\rtlch\f5\af5\ltrch\fs22}{\listlevel\levelnfc0\levelfollow0\levelstartat1{\ leveltext \'02\'07.}{\levelnumbers \'01}\fcs1\f5\af5\fcs0\rtlch\f5\af5\ltrch\fs22}{\listlevel\levelnfc0\levelfollow 0\levelstartat1{\leveltext \'02\'08.}{\levelnumbers \'01}\fcs1\f5\af5\fcs0\rtlch\f5\af5\ltrch\fs22}{\listname [id number];}\[id number]}{\list\listtemplateid3{\listlevel\levelnfc0\ levelfollow0\levelstartat1{\leveltext \'02\'00.}{\levelnumbers \'01}\f6\fcs1\f6\af6\fcs0\rtlch\f6\af6\ltrch\fs16}{\listl evel\levelnfc0\levelfollow0\levelstartat1{\leveltext \'02\'01.}{\levelnumbers \'01}\fcs1\f5\af5\fcs0\ rtlch\f5\af5\ltrch\fs22}{\listlevel\levelnfc0\levelfollow0\levelstartat1{\levelt ext \'02\'02.}{\levelnumbers \'01}\fcs1\f5\af5\fcs0\rtlch\f5\af5\ltrch\fs22}{\listlevel\levelnfc0\levelfollow 0\levelstartat1{\leveltext \'02\03.}{\levelnumbers \'01}\fcs1\f5\af5\fcs0\rtlch\f5\af5\ltrch\fs22}{\listlevel\lev elnfc0\levelfollow0\levelstartat1{\leveltext \'02\04.}{\levelnumbers \'01}\fcs1\f5\af5\fcs0\rtlch\f5 \af5\ltrch\fs22}{\listlevel\levelnfc0\levelfollow0\levelstartat1{\leveltext \'02\05.}{\levelnumbers \'01}\fcs1\f5\af5\fcs0\rtlch\f5\af5\ltrch\fs22}{\listlevel\levelnfc0\levelfollow 0\levelstartat1{\leveltext \'02\06.}{\levelnumbers \'01}\fcs1\f5\af5\fcs0\rtlch\f5\af5\ltrch\fs22}{\listlevel\levelnfc0\l evelfollow0\levelstartat1{\leveltext \'02\07.}{\levelnumbers \'01}\fcs1\f5\af5\fcs0\rtlch\f5\af5\ltr ch\fs22}{\listlevel\levelnfc0\levelfollow0\levelstartat1{\leveltext \'02\'08.}{\levelnumbers \'01}\fc s1\f5\af5\fcs0\rtlch\f5\af5\ltrch\fs22}{\listname Fxfw8692523656_4;}\[id number]}{\list\listtemp lateid4{\listlevel\levelnfc0\levelfollow0\levelstartat1{\leveltext \'02\'00.}{\levelnumbers \'01}\f6\ fcs1\f6\af6\fcs0\rtlch\f6\af6\ltrch\fs16}{\listlevel\levelnfc0\levelfollow0\leve lstartat1{\leveltext\'02\'01.}{\levelnumbers \'01}\fcs1\f5\af5\fcs0\rtlch\f5\af5\ltrch\fs22}{\listlevel\levelnfc0\levelfo llow0\levelstartat1{\leveltext \'02\'02.}{\levelnumbers \'01}\fcs1\f5\af5\fcs0\rtlch\f5\af5\ltrch\fs2 2}{\listlevel\levelnfc0\levelfollow0\levelstartat1{\leveltext \'02\'03.}{\levelnumbers \'01}\fcs1\f5\ af5\fcs0\rtlch\f5\af5\ltrch\fs22}{\listlevel\levelnfc0\levelfollow0\levelstartat 1{\leveltext \'02\'04.}{\levelnumbers \'01}\fcs1\f5\af5\fcs0\rtlch\f5\af5\ltrch\fs22}{\listlevel\levelnfc0\levelfollow 0\levelstartat1{\leveltext \'02\05.}{\levelnumbers \'01}\fcs1\f5\af5\fcs0\rtlch\f5\af5\ltrch\fs22}{\list level\levelnfc0\levelfollow0\levelstartat1{\leveltext \'02\06.}{\levelnumbers \'01}\fcs1\f5\af5\fcs0 \rtlch\f5\af5\ltrch\fs22}{\listlevel\levelnfc0\levelfollow0\levelstartat1{\level text \\07.}{\levelnumbers \'01}\fcs1\f5\af5\fcs0\rtlch\f5\af5\ltrch\fs22}{\listlevel\levelnfc0\levelfollow 0\levelstartat1{\leveltext \'\08.}{\levelnumbers \'01}\fcs1\f5\af5\fcs0\rtlch\f5\af5\ltrch\fs22}{\listname Lis o6210805667_8;}\[id number]}{\list\listtemplateid5{\listlevel\levelnfc0\lev elfollow0\levelstartat1{\leveltext \'02\'00.}{\levelnumbers \'01}\f6\fcs1\f6\af6\fcs0\rtlch\f6\af6\ltrch\fs16}{\listlevel\ levelnfc0\levelfollow0\levelstartat1{\leveltext \'02\'01.}{\levelnumbers \'01}\fcs1\f5\af5\fcs0\rtlch \f5\af5\ltrch\fs22}{\listlevel\levelnfc0\levelfollow0\levelstartat1{\leveltext \'02\02.}{\levelnumbers \'01}\fcs1\f5\af5\fcs0\rtlch\f5\af5\ltrch\fs22}{\listlevel\levelnfc0\levelfollow 0\levelstartat1{\leveltext \'02\'03.}{\levelnumbers \'01}\fcs1\f5\af5\fcs0\rtlch\f5\af5\ltrch\fs22}{\listlevel\levelnfc 0\levelfollow0\levelstartat1{\leveltext \'02\'04.}{\levelnumbers \'01}\fcs1\f5\af5\fcs0\rtlch\f5\af5\ ltrch\fs22}{\listlevel\levelnfc0\levelfollow0\levelstartat1{\leveltext \'02\'05.}{\levelnumbers \'01} \fcs1\f5\af5\fcs0\rtlch\f5\af5\ltrch\fs22}{\listlevel\levelnfc0\levelfollow0\lev elstartat1{\leveltext \'02\'06.}{\levelnumbers \'01}\fcs1\f5\af5\fcs0\rtlch\f5\af5\ltrch\fs22}{\listlevel\levelnfc0\levelf ollow0\levelstartat1{\leveltext \'02\'07.}{\levelnumbers \'01}\fcs1\f5\af5\fcs0\rtlch\f5\af5\ltrch\fs 22}{\listlevel\levelnfc0\levelfollow0\levelstartat1{\leveltext \'02\'08.}{\levelnumbers \'01}\fcs1\f5 \af5\fcs0\rtlch\f5\af5\ltrch\fs22}{\listname [id number]_1;}\[id number]}{\list\listtemplatei d8{\listlevel\levelnfc0\levelfollow0\levelstartat1{\leveltext \'02\'00.}{\levelnumbers \'01}\fcs1\f5\ af5\fcs0\rtlch\f5\af5\ltrch\fs22}{\listlevel\levelnfc0\levelfollow0\levelstartat 1{\leveltext \'02\'01.}{\levelnumbers \'01}\fcs1\f5\af5\fcs0\rtlch\f5\af5\ltrch\fs22}{\listlevel\levelnfc0\levelfollow 0\levelstartat1{\leveltext \'02\'02.}{\levelnumbers \'01}\fcs1\f5\af5\fcs0\rtlch\f5\af5\ltrch\fs22}{\list level\levelnfc0\levelfollow0\levelstartat1{\leveltext \'02\03.}{\levelnumbers \'01}\fcs1\f5\af5\fcs0 \rtlch\f5\af5\ltrch\fs22}{\listlevel\levelnfc0\levelfollow0\levelstartat1{\level text \'02\04.}{\levelnumbers \'01}\fcs1\f5\af5\fcs0\rtlch\f5\af5\ltrch\fs22}{\listlevel\levelnfc0\levelfollow 0\levelstartat1{\leveltext \'02\'05.}{\levelnumbers \'01}\fcs1\f5\af5\fcs0\rtlch\f5\af5\ltrch\fs22}{\listlevel\le velnfc0\levelfollow0\levelstartat1{\leveltext \'02\'06.}{\levelnumbers \'01}\fcs1\f5\af5\fcs0\rtlch\f 5\af5\ltrch\fs22}{\listlevel\levelnfc0\levelfollow0\levelstartat1{\leveltext \'02\07.}{\levelnumbers \'01}\fcs1\f5\af5\fcs0\rtlch\f5\af5\ltrch\fs22}{\listlevel\levelnfc0\levelfollow 0\levelstartat1{\leveltext \'02\'08.}{\levelnumbers \'01}\fcs1\f5\af5\fcs0\rtlch\f5\af5\ltrch\fs22}{\listname [id number] 916_1;}\[id number]}{\list\listtemplateid9{\listlevel\levelnfc0\levelfollow 0\levelstartat1{\leveltext \'02\'00.}{\levelnumbers \'01}}{\listlevel\levelnfc0\levelfollow0\levelstartat1{\leveltext \'02 \'01.}{\levelnumbers \'01}}{\listlevel\levelnfc0\levelfollow0\levelstartat1{\leveltext \'02\'02.}{\le velnumbers \'01}}{\listlevel\levelnfc0\levelfollow0\levelstartat1{\leveltext \'02\'0 3.}{\levelnumbers \'01}}{\listlevel\levelnfc0\levelfollow0\levelstartat1{\leveltext \'02\'04.}{\levelnumbers \'01}}{\listlevel\levelnfc0\levelfollow0\levelstartat1{\leveltext \'02\'05.}{\levelnumbers \' 01}}{\listlevel\levelnfc0\levelfollow0\levelstartat1{\leveltext \'02\'06.}{\levelnumbers \'01}}{\list level\levelnfc0\levelfollow0\levelstartat1{\leveltext \'02\'07.}{\levelnumbers \'01}}{\listlevel\levelnfc0\levelfollow0\levelstartat1{\leveltext \'02\'08.}{\levelnumbers \'01}}{\listname [id number]_ 1;}\[id number]}{\list\khlgytcaajpvws53{\listlevel\levelnfc0\levelfollow0\l evelstartat1{\leveltext \'02\'00.}{\levelnumbers \'01}}{\listlevel\levelnfc0\levelfollow0\levelstartat1{\leveltext \'02\'0 1.}{\levelnumbers \'01}}{\listlevel\levelnfc0\levelfollow0\levelstartat1{\leveltext \'02\'02.}{\levelnumbers \'01}}{\listlevel\levelnfc0\levelfollow0\levelstartat1{\leveltext \'02\'03.}{\levelnumbers \' 01}}{\listlevel\levelnfc0\levelfollow0\levelstartat1{\leveltext \'02\'04.}{\levelnumbers \'01}}{\list level\levelnfc0\levelfollow0\levelstartat1{\leveltext \'02\'05.}{\levelnumbers \'01}}{\listlevel\levelnfc0\levelfollow0\levelstartat1{\leveltext \'02\'06.}{\levelnumbers \'01}}{\listlevel\levelnfc0\leve lfollow0\levelstartat1{\leveltext \'02\'07.}{\levelnumbers \'01}}{\listlevel\levelnfc0\levelfollow0\levelstartat1{\leveltext \'02\'08.}{\levelnumbers \'01}}{\listname [id number];}\[id number] }{\list\yfdkebirgrjylp07{\listlevel\levelnfc0\levelfollow0\levelstartat1{\levelt ext \'02\'00.}{\levelnumbers \'01}}{\listlevel\levelnfc0\levelfollow0\levelstartat1{\leveltext \'02\'01.}{\levelnumbers \' 01}}{\listlevel\levelnfc0\levelfollow0\levelstartat1{\leveltext \'02\'02.}{\levelnumbers \'01}}{\list level\levelnfc0\levelfollow0\levelstartat1{\leveltext \'02\'03.}{\levelnumbers \'01}}{\listlevel\levelnfc0\levelfollow0\levelstartat1{\leveltext \'02\'04.}{\levelnumbers \'01}}{\listlevel\levelnfc0\leve lfollow0\levelstartat1{\leveltext \'02\'05.}{\levelnumbers \'01}}{\listlevel\levelnfc0\levelfollow0\levelstartat1{\leveltext \'02\'06.}{\levelnumbers \'01}}{\listlevel\levelnfc0\levelfollow0\levelstarta t1{\leveltext \'02\'07.}{\levelnumbers \'01}}{\listlevel\levelnfc0\levelfollow0\levelstartat1{\leveltext \'02\'08.}{\levelnumbers \'01}}{\listname [id number]_1;}\[id number]}{\list\listtemplate [id number]{\listlevel\xknaredf59\levelfollow0\levelstartat0{\leveltext \'01\x70180 ?}{\levelnumbers }\f2\fcs1\f2\af2\fcs0}{\listlevel\swyjayje58\levelfollow0\levelstartat1{\levelte xt \'01o}{\levelnumbe rs}\f3}{\listlevel\\levelfollow0\levelstartat1{\leveltext \'01\l08874 ?}{\levelnumbers}\f4} {\listlevel\\levelfollow0\levelstartat1{\leveltext \'01\n95038 ?}{\levelnumbers}\f2}{\listl evel\\levelfollow0\levelstartat1{\leveltext \'01o}{\levelnumbers}\f3}{\listlevel\gletmywf53 \levelfollow0\levelstartat1{\leveltext \'01\d76142 ?}{\levelnumbers}\f4}{\listlevel\\levelf ollow0\levelstartat1{\leveltext \'01\q55552 ?}{\levelnumbers}\f2}{\listlevel\ierqnthg28\levelfollow0\ levelstartat1{\leveltext \'01o}{\levelnumbers}\f3}{\listlevel\\levelfollow0\levelstartat1{\ leveltext \'01\v03657 ?}{\levelnumbers}\f4}{\listname ;}\jtzzhy7728878495}{\list\rvjtczefuoslns661080 0949{\listlevel\levelnfc0\levelfollow0\levelstartat1{\leveltext \'02\'00.}{\levelnumbers \'01}}{\list level\levelnfc0\levelfollow0\levelstartat1{\leveltext \'02\'01.}{\levelnumbers \'01}}{\listlevel\levelnfc0\levelfollow0\levelstartat1{\leveltext \'02\'02.}{\levelnumbers \'01}}{\listlevel\levelnfc0\leve lfollow0\levelstartat1{\leveltext \'02\03.}{\levelnumbers \'01}}{\listlevel\levelnfc0\levelfollow0\levelstartat1{\leveltext \'02\'04.}{\levelnumbers \'01}}{\listlevel\levelnfc0\levelfollow0\levelstarta t1{\leveltext \'02\05.}{\levelnumbers \'01}}{\listlevel\levelnfc0\levelfollow0\levelstartat1{\leveltext \'02\06.}{\levelnumbers \'01}}{\listlevel\levelnfc0\levelfollow0\levelstartat1{\leveltext \'02\ 07.}{\levelnumbers \'}}{\listlevel\levelnfc0\levelfollow0\levelstartat1{\leveltext \'02\'08.}{\levelnumbers \'01}}{\listname Wlcs2285822797_6;}\[id number]}{\list\slqvybsxbxbqxs5099581878{\listle gilma\levelnfc0\levelfollow0\levelstartat1{\leveltext \'02\'00.}{\levelnumbers \'}}{\listlevel\levelnfc0\levelfollow0\levelstartat1{\leveltext \'02\'01.}{\levelnumbers \'01}}{\listlevel\levelnfc0\levelf ollow0\levelstartat1{\leveltext \'02\'02.}{\levelnumbers \'01}}{\listlevel\levelnfc0\levelfollow0\levelstartat1{\leveltext \'02\'03.}{\levelnumbers \'01}}{\listlevel\levelnfc0\levelfollow0\levelstartat1 {\leveltext \'02\'04.}{\levelnumbers \'01}}{\listlevel\levelnfc0\levelfollow0\levelstartat1{\leveltext \'02\05.}{\levelnumbers \'01}}{\listlevel\levelnfc0\levelfollow0\levelstartat1{\leveltext \'02\06 .}{\levelnumbers \'01}}{\listlevel\levelnfc0\levelfollow0\levelstartat1{\leveltext \'02\'07.}{\levelnumbers \'01}}{\listlevel\levelnfc0\levelfollow0\levelstartat1{\leveltext \'02\08.}{\levelnumbers \'01}}{\listname [id number];}\[id number]}{\list\[id number]{\listlevel\l evelnfc0\levelfollow0\levelstartat1{\leveltext \'02\'00.}{\levelnumbers \'01}}{\listlevel\levelnfc0\levelfollow0\levelstartat1{\leveltext \'02\'01.}{\levelnumbers \'01}}{\listlevel\levelnfc0\levelfollow0\level startat1{\leveltext \'02\'02.}{\levelnumbers \'01}}{\listlevel\levelnfc0\levelfollow0\levelstartat1{\leveltext \'02\'03.}{\levelnumbers \'01}}{\listlevel\levelnfc0\levelfollow0\levelstartat1{\leveltext \'02\'04.}{\levelnumbers \'01}}{\listlevel\levelnfc0\levelfollow0\levelstartat1{\leveltext \'02\'05.} {\levelnumbers \'01}}{\listlevel\levelnfc0\levelfollow0\levelstartat1{\leveltext \'02\06.}{\levelnumbers \'01}}{\listlevel\levelnfc0\levelfollow0\levelstartat1{\leveltext \'02\07.}{\levelnumbers \'01} }{\listlevel\levelnfc0\levelfollow0\levelstartat1{\leveltext \'02\08.}{\levelnumbers \'01}}{\listname [id number]_8;}\bszbsv7675092239}{\list\[id number]{\listlevel\l evelnfc0\levelfollow0\levelstartat1{\leveltext \'02\'00.}{\levelnumbers \'01}}{\listlevel\levelnfc0\levelfollow0\levelstartat1{\leveltext \'02\'01.}{\levelnumbers \'01}}{\listlevel\levelnfc0\levelfollow0\levelstartat1{\leveltext \'02\'02.}{\levelnumbers \'01}}{\listlevel\levelnfc0\levelfollow0\levelstartat1{\leveltext \' \'03.}{\levelnumbers \'01}}{\listlevel\levelnfc0\levelfollow0\levelstartat1{\leveltext \'02\'04.}{\ levelnumbers \'01}}{\listlevel\levelnfc0\levelfollow0\levelstartat1{\leveltext \'02\'05.}{\levelnumbers \'01}}{\listlevel\levelnfc0\levelfollow0\levelstartat1{\leveltext \'02\'06.}{\levelnumbers \'01}}{ \listlevel\levelnfc0\levelfollow0\levelstartat1{\leveltext \'02\'07.}{\levelnumbers \'01}}{\listlevel \levelnfc0\levelfollow0\levelstartat1{\leveltext \'02\'08.}{\levelnumbers \'01}}{\listname Fjir427348 3275_1;}\[id number]}{\list\xvgcuxjaoimpdq2414572283{\listlevel\levelnfc0\l evelfollow0\levelstartat1{\leveltext \'02\'00.}{\levelnumbers \'01}}{\listlevel\levelnfc0\levelfollow0\levelstartat1{\leveltext \'02\'01.}{\levelnumbers \'01}}{\listlevel\levelnfc0\levelfollow0\levelstartat1{\leveltext \'02 \'02.}{\levelnumbers \'01}}{\listlevel\levelnfc0\levelfollow0\levelstartat1{\leveltext \'02\'03.}{\le velnumbers \'01}}{\listlevel\levelnfc0\levelfollow0\levelstartat1{\leveltext \'02\'04.}{\levelnumbers \'01}}{\listlevel\levelnfc0\levelfollow0\levelstartat1{\leveltext \'02\'05.}{\levelnumbers \'01}}{\l istlevel\levelnfc0\levelfollow0\levelstartat1{\leveltext \'02\'06.}{\levelnumbers \'01}}{\listlevel\l evelnfc0\levelfollow0\levelstartat1{\leveltext \'02\'07.}{\levelnumbers \'01}}{\listlevel\levelnfc0\levelfollow0\levelstartat1{\leveltext \'02\08.}{\levelnumbers \'01}}{\listname Fria5477099871_4;}\lis nqc1995918846}{\list\[id number]{\listlevel\levelnfc0\levelfollow0\ levelstartat1{\leveltext \'02\'00.}{\levelnumbers \'01}}{\listlevel\levelnfc0\levelfollow0\levelstartat1{\leveltext \'02\' 01.}{\levelnumbers \'01}}{\listlevel\levelnfc0\levelfollow0\levelstartat1{\leveltext \'02\'02.}{\levelnumbers \'01}}{\listlevel\levelnfc0\levelfollow0\levelstartat1{\leveltext \'02\'03.}{\levelnumbers \ '01}}{\listlevel\levelnfc0\levelfollow0\levelstartat1{\leveltext \'02\'04.}{\levelnumbers \'01}}{\lis tlevel\levelnfc0\levelfollow0\levelstartat1{\leveltext \'02\'05.}{\levelnumbers \'01}}{\listlevel\levelnfc0\levelfollow0\levelstartat1{\leveltext \'02\'06.}{\levelnumbers \'01}}{\listlevel\levelnfc0\lev elfollow0\levelstartat1{\leveltext \'02\'07.}{\levelnumbers \'01}}{\listlevel\levelnfc0\levelfollow0\levelstartat1{\leveltext \'02\'08.}{\levelnumbers \'01}}{\listname [id number]_0;}\[id number] 6}{\list\[id number]{\listlevel\levelnfc0\levelfollow0\levelstartat 1{\leveltext \'02\'00.}{\levelnumbers \'01}}{\listlevel\levelnfc0\levelfollow0\levelstartat1{\leveltext \'02\'01.}{\levelnumbers \'01}}{\listlevel\levelnfc0\levelfollow0\levelstartat1{\leveltext \'02\'02.}{\levelnumbers \'0 1}}{\listlevel\levelnfc0\levelfollow0\levelstartat1{\leveltext \'02\'03.}{\levelnumbers \'01}}{\listl evel\levelnfc0\levelfollow0\levelstartat1{\leveltext \'02\'04.}{\levelnumbers \'01}}{\listlevel\levelnfc0\levelfollow0\levelstartat1{\leveltext \'02\'05.}{\levelnumbers \'01}}{\listlevel\levelnfc0\level follow0\levelstartat1{\leveltext \'02\'06.}{\levelnumbers \'01}}{\listlevel\levelnfc0\levelfollow0\levelstartat1{\leveltext \'02\'07.}{\levelnumbers \'01}}{\listlevel\levelnfc0\levelfollow0\levelstartat 1{\leveltext \'02\'08.}{\levelnumbers \'01}}{\listname Yeed7140178008_7;}\[id number]}{\list\listtemplateid- [id number]{\listlevel\wafssake22\levelfollow0\levelstartat0{\leveltext \'01\o48136 ?}{\le velnumbers}\f2\fcs1\f2\af2\fcs0}{\listlevel\cvfalqxi26\levelfollow0\levelstartat 1{\leveltext \'01o}{\ levelnumbers}\f3}{\listlevel\\levelfollow0\levelstartat1{\leveltext \'\v47578 ?}{\levelnu mbers}\f4}{\listlevel\ftoqtvlo56\levelfollow0\levelstartat1{\leveltext \'\s22413 ?}{\levelnumbers}\ f2}{\listlevel\pzmvketa03\levelfollow0\levelstartat1{\leveltext \'01o}{\levelnumbers}\f3}{\listlevel\ isnzgnct26\levelfollow0\levelstartat1{\leveltext \'\p79139 ?}{\levelnumbers}\f4}{\listlevel\levelnf c23\levelfollow0\levelstartat1{\leveltext \'\v52231 ?}{\levelnumbers}\f2}{\listlevel\snyurvuo25\lev elfollow0\levelstartat1{\leveltext \'01o}{\levelnumbers}\f3}{\listlevel\ckojigll57\levelfollow0\level startat1{\leveltext \'\j90361 ?}{\levelnumbers}\f4}{\listname ;}\[id number]}{\list\listtemplateid- [id number]{\listlevel\fixbiaws48\levelfollow0\levelstartat0{\leveltext \'01\h83504 ?}{\levelnumb ers}\f2\fcs1\f2\af2\fcs0}{\listlevel\kxkzcvgy27\levelfollow0\levelstartat1{\leve ltext \'01o}{\levelnu mbers}\f3}{\listlevel\eitrarns23\levelfollow0\levelstartat1{\leveltext \'\a67729 ?}{\levelnumbers}\ f4}{\listlevel\mncmiwwi76\levelfollow0\levelstartat1{\leveltext \'01\t61992 ?}{\levelnumbers}\f2}{\li stlevel\urzdyqhx80\levelfollow0\levelstartat1{\leveltext \'01o}{\levelnumbers}\f3}{\listlevel\levelnf c23\levelfollow0\levelstartat1{\leveltext \'01\s74294 ?}{\levelnumbers}\f4}{\listlevel\ehougogi21\lev elfollow0\levelstartat1{\leveltext \'\p66304 ?}{\levelnumbers}\f2}{\listlevel\mahmqcvc13\levelfollo w0\levelstartat1{\leveltext \'01o}{\levelnumbers}\f3}{\listlevel\mbpyfepb15\levelfollow0\levelstartat 1{\leveltext \'01\e55210 ?}{\levelnumbers}\f4}{\listname ;}\[id number]}{\list\quwnqnthhpsalv89{ \listlevel\levelnfc0\levelfollow0\levelstartat1{\leveltext \'02\'00.}{\levelnumbers \'01}}{\listlevel \levelnfc0\levelfollow0\levelstartat1{\leveltext \'02\'01.}{\levelnumbers \'01}}{\listlevel\levelnfc0\levelfollow0\levelstartat1{\leveltext \'02\'02.}{\levelnumbers \'01}}{\listlevel\levelnfc0\levelfoll ow0\levelstartat1{\leveltext \'02\'03.}{\levelnumbers \'01}}{\listlevel\levelnfc0\levelfollow0\levelstartat1{\leveltext \'02\'04.}{\levelnumbers \'01}}{\listlevel\levelnfc0\levelfollow0\levelstartat1{\leveltext \'\05.}{\levelnumbers \'01}}{\listlevel\levelnfc0\levelfollow0\levelstartat1{\leveltext \ '02\06.}{\levelnumbers \'01}}{\listlevel\levelnfc0\levelfollow0\levelstartat1{\leveltext \'02\07.}{ \levelnumbers \'01}}{\listlevel\levelnfc0\levelfollow0\levelstartat1{\leveltext \'\08.}{\levelnumbers \'01}}{\listname [id number]_4;}\[id number]}{\list\fdgytcjqkqqyuw33{\listlevel\levelnfc0 \levelfollow0\levelstartat1{\leveltext \'02\'00.}{\levelnumbers \'01}}{\listlevel\levelnfc0\levelfollow0\levelstartat1{\leveltext \'\'.}{\levelnumbers \'}}{\listlevel\levelnfc0\levelfollow0\levels tartat1{\leveltext \'\'02.}{\levelnumbers \'}}{\listlevel\levelnfc0\levelfollow0\levelstartat1{\leveltext \'02\'03.}{\levelnumbers \'01}}{\listlevel\levelnfc0\levelfollow0\levelstartat1{\leveltext \ '\04.}{\levelnumbers \'01}}{\listlevel\levelnfc0\levelfollow0\levelstartat1{\leveltext \'02\'05.}{ \levelnumbers \'01}}{\listlevel\levelnfc0\levelfollow0\levelstartat1{\leveltext \'02\'06.}{\levelnumbers \'01}}{\listlevel\levelnfc0\levelfollow0\levelstartat1{\leveltext \'02\'07.}{\levelnumbers \'01}} {\listlevel\levelnfc0\levelfollow0\levelstartat1{\leveltext \'02\08.}{\levelnumbers \'01}}{\listname [id number];}\[id number]}{\list\[id number]{\listlevel\l evelnfc0\levelfollow0\levelstartat1{\leveltext \'02\'00.}{\levelnumbers \'01}}{\listlevel\levelnfc0\levelfollow0\levelstartat1{\leveltext \'02\'01.}{\levelnumbers \'01}}{\listlevel\levelnfc0\levelfollow0\levelstartat1{\leveltext \'02\'02.}{\levelnumbers \'01}}{\listlevel\levelnfc0\levelfollow0\levelstartat1{\leveltext \'0 2\'03.}{\levelnumbers \'01}}{\listlevel\levelnfc0\levelfollow0\levelstartat1{\leveltext \'02\'04.}{\l evelnumbers \'01}}{\listlevel\levelnfc0\levelfollow0\levelstartat1{\leveltext \'02\'05.}{\levelnumbers \'01}}{\listlevel\levelnfc0\levelfollow0\levelstartat1{\leveltext \'02\'06.}{\levelnumbers \'01}}{\ listlevel\levelnfc0\levelfollow0\levelstartat1{\leveltext \'02\'07.}{\levelnumbers \'01}}{\listlevel\ levelnfc0\levelfollow0\levelstartat1{\leveltext \'0208.}{\levelnumbers \'01}}{\listname [id number];}\[id number]}{\list\[id number]{\listlevel\levelnfc0\le velfollow0\levelstartat1{\leveltext \'02\'00.}{\levelnumbers \'01}}{\listlevel\levelnfc0\levelfollow0\levelstartat1{\leveltext \'\.}{\levelnumbers \'01}}{\listlevel\levelnfc0\levelfollow0\levelstartat1{\leveltext \'\ 02.}{\levelnumbers \'01}}{\listlevel\levelnfc0\levelfollow0\levelstartat1{\leveltext \'02\03.}{\levelnumbers \'01}}{\listlevel\levelnfc0\levelfollow0\levelstartat1{\leveltext \'02\04.}{\levelnumbers \'01}}{\listlevel\levelnfc0\levelfollow0\levelstartat1{\leveltext \'\05.}{\levelnumbers \'01}}{\li stlevel\levelnfc0\levelfollow0\levelstartat1{\leveltext \'02\'06.}{\levelnumbers \'01}}{\listlevel\levelnfc0\levelfollow0\levelstartat1{\leveltext \'02\07.}{\levelnumbers \'01}}{\listlevel\levelnfc0\le velfollow0\levelstartat1{\leveltext \'\08.}{\levelnumbers \'01}}{\listname [id number];}\list [id number]}{\list\[id number]{\listlevel\levelnfc0\levelfollow0\l evelstartat1{\leveltext \'02\'00.}{\levelnumbers \'01}}{\listlevel\levelnfc0\levelfollow0\levelstartat1{\leveltext \'02\'0 1.}{\levelnumbers \'01}}{\listlevel\levelnfc0\levelfollow0\levelstartat1{\leveltext \'02\'02.}{\levelnumbers \'01}}{\listlevel\levelnfc0\levelfollow0\levelstartat1{\leveltext \'02\'03.}{\levelnumbers \' 01}}{\listlevel\levelnfc0\levelfollow0\levelstartat1{\leveltext \'02\'04.}{\levelnumbers \'01}}{\list level\levelnfc0\levelfollow0\levelstartat1{\leveltext \'02\'05.}{\levelnumbers \'01}}{\listlevel\levelnfc0\levelfollow0\levelstartat1{\leveltext \'02\'06.}{\levelnumbers \'01}}{\listlevel\levelnfc0\leve lfollow0\levelstartat1{\leveltext \'02\'07.}{\levelnumbers \'01}}{\listlevel\levelnfc0\levelfollow0\levelstartat1{\leveltext \'02\'08.}{\levelnumbers \'01}}{\listname [id number];}\[id number] }{\list\[id number]{\listlevel\levelnfc0\levelfollow0\levelstartat1 {\leveltext \'02\'00.}{\levelnumbers \'01}}{\listlevel\levelnfc0\levelfollow0\levelstartat1{\leveltext \'\.}{\levelnumbers \'01}}{\listlevel\levelnfc0\levelfollow0\levelstartat1{\leveltext \'02\'02.}{\levelnumbers \' }}{\listlevel\levelnfc0\levelfollow0\levelstartat1{\leveltext \'02\03.}{\levelnumbers \'}}{\listle gilma\levelnfc0\levelfollow0\levelstartat1{\leveltext \'\.}{\levelnumbers \'}}{\listlevel\levelnfc0\levelfollow0\levelstartat1{\leveltext \'\05.}{\levelnumbers \'}}{\listlevel\levelnfc0\levelf ollow0\levelstartat1{\leveltext \'02\'06.}{\levelnumbers \'}}{\listlevel\levelnfc0\levelfollow0\levelstartat1{\leveltext \'\.}{\levelnumbers \'01}}{\listlevel\levelnfc0\levelfollow0\levelstartat1 {\leveltext \'\08.}{\levelnumbers \'01}}{\listname Xzyp8770920176_0;}\[id number]}{\list\list templateid1{\listlevel\komqgbbf29\levelfollow0\levelstartat1{\leveltext \'\'b7}{\levelnumbers}\f1\f cs1\f1\af1\fcs0\rtlch\f1\af1\ltrch\fs20}{\listlevel\levelnfc0\levelfollow0\level startat1{\leveltext \'02\'.}{\levelnumbers \'01}}{\listlevel\levelnfc0\levelfollow0\levelstartat1{\leveltext \'02\02.}{ \levelnumbers \'01}}{\listlevel\levelnfc0\levelfollow0\levelstartat1{\leveltext \'02\03.}{\levelnumbers \'}}{\listlevel\levelnfc0\levelfollow0\levelstartat1{\leveltext \'\04.}{\levelnumbers \'}} {\listlevel\levelnfc0\levelfollow0\levelstartat1{\leveltext \'\05.}{\levelnumbers \'}}{\listleve l\levelnfc0\levelfollow0\levelstartat1{\leveltext \'\06.}{\levelnumbers \'}}{\listlevel\levelnfc0\levelfollow0\levelstartat1{\leveltext \'\07.}{\levelnumbers \'}}{\listlevel\levelnfc0\levelfol low0\levelstartat1{\leveltext \'\08.}{\levelnumbers \'}}{\listname HTML-List1;}\[id number] }{\list\listtemplateid2{\listlevel\\levelfollow0\levelstartat1{\levelt ext \'\'b7}{\leveln umbers}\f1\fcs1\f1\af1\fcs0\rtlch\f1\af1\ltrch\fs20}{\listlevel\levelnfc0\levelf ollow0\levelstartat1{\leveltext \'02\'.}{\levelnumbers \'01}}{\listlevel\levelnfc0\levelfollow0\levelstartat1{\leveltext \'02\'02.}{\levelnumbers \'01}}{\listlevel\levelnfc0\levelfollow0\levelstartat1{\leveltext \'02\'03. }{\levelnumbers \'01}}{\listlevel\levelnfc0\levelfollow0\levelstartat1{\leveltext \'02\'04.}{\levelnumbers \'01}}{\listlevel\levelnfc0\levelfollow0\levelstartat1{\leveltext \'02\'05.}{\levelnumbers \'01 }}{\listlevel\levelnfc0\levelfollow0\levelstartat1{\leveltext \'02\'06.}{\levelnumbers \'01}}{\listle gilma\levelnfc0\levelfollow0\levelstartat1{\leveltext \'02\'07.}{\levelnumbers \'01}}{\listlevel\levelnfc0\levelfollow0\levelstartat1{\leveltext \'02\'08.}{\levelnumbers \'01}}{\listname HTML-List2;}\list [id number]}{\list\listtemplateid3{\listlevel\ichkamed68\levelfollow0\levelstar tat1{\leveltext \'01\ 'b7}{\levelnumbers}\f1\fcs1\f1\af1\fcs0\rtlch\f1\af1\ltrch\fs20}{\listlevel\leve lnfc0\levelfollow0\levelstartat1{\leveltext \'02\'01.}{\levelnumbers \'01}}{\listlevel\levelnfc0\levelfollow0\levelstartat1{\leveltext \'02\'02.}{\levelnumbers \'01}}{\listlevel\levelnfc0\levelfollow0\levelstartat1{\leveltext \'02\'03.}{\levelnumbers \'01}}{\listlevel\levelnfc0\levelfollow0\levelstartat1{\leveltext \'02\'0 4.}{\levelnumbers \'01}}{\listlevel\levelnfc0\levelfollow0\levelstartat1{\leveltext \'02\'05.}{\levelnumbers \'01}}{\listlevel\levelnfc0\levelfollow0\levelstartat1{\leveltext \'02\'06.}{\levelnumbers \' 01}}{\listlevel\levelnfc0\levelfollow0\levelstartat1{\leveltext \'02\'07.}{\levelnumbers \'01}}{\list level\levelnfc0\levelfollow0\levelstartat1{\leveltext \'02\'08.}{\levelnumbers \'01}}{\listname HTML- List3;}\[id number]}{\list\listtemplateid1{\listlevel\zyrtjcxt66\levelfollo w0\levelstartat1{\leveltext \'01\'b7}{\levelnumbers}\f1\fcs1\f1\af1\fcs0\rtlch\f1\af1\ltrch\fs20}{\listlevel \levelnfc0\levelfollow0\levelstartat1{\leveltext \'02\'01.}{\levelnumbers \'01}}{\listlevel\levelnfc0\levelfollow0\levelstartat1{\leveltext \'02\'02.}{\levelnumbers \'01}}{\listlevel\levelnfc0\levelfollow0\levelstart at1{\leveltext \'02\'03.}{\levelnumbers \'01}}{\listlevel\levelnfc0\levelfollow0\levelstartat1{\leveltext \'02\'04.}{\levelnumbers \'01}}{\listlevel\levelnfc0\levelfollow0\levelstartat1{\leveltext \'02\ '05.}{\levelnumbers \'01}}{\listlevel\levelnfc0\levelfollow0\levelstartat1{\leveltext \'\.}{\levelnumbers \'01}}{\listlevel\levelnfc0\levelfollow0\levelstartat1{\leveltext \'\07.}{\levelnumbers \'}}{\listlevel\levelnfc0\levelfollow0\levelstartat1{\leveltext \'\08.}{\levelnumbers \'}}{\listname HTML-List1;}\[id number]}{\list\listtemplateid2{\listlevel\jwtujbua46\level follow0\levelstartat1{\leveltext \'\'b7}{\levelnumbers}\f1\fcs1\f1\af1\fcs0\rtlch\f1\af1\ltrch\fs20}{\listlevel \levelnfc0\levelfollow0\levelstartat1{\leveltext \'02\'.}{\levelnumbers \'01}}{\listlevel\levelnfc0\levelfollow0\levelstartat1{\leveltext \'02\'02.}{\levelnumbers \'}}{\listlevel\levelnfc0\levelfollow 0\levelstartat1{\leveltext \'02\'03.}{\levelnumbers \'01}}{\listlevel\levelnfc0\levelfollow0\levelstartat1{\leveltext \'\'04.}{\levelnumbers \'01}}{\listlevel\levelnfc0\levelfollow0\levelstartat1{\leveltext \'02\'05.}{\levelnumbers \'01}}{\listlevel\levelnfc0\levelfollow0\levelstartat1{\leveltext \'0 2\'06.}{\levelnumbers \'01}}{\listlevel\levelnfc0\levelfollow0\levelstartat1{\leveltext \'02\07.}{\l evelnumbers \'01}}{\listlevel\levelnfc0\levelfollow0\levelstartat1{\leveltext \'02\08.}{\levelnumbers \'01}}{\listname HTML-List2;}\[id number]}{\list\listtemplateid3{\listlevel\jvchqyrr70\level follow0\levelstartat1{\leveltext \'01\'b7}{\levelnumbers}\f1\fcs1\f1\af1\fcs0\rtlch\f1\af1\ltrch\fs20}{ \listlevel\levelnfc0\levelfollow0\levelstartat1{\leveltext \'02\'01.}{\levelnumbers \'01}}{\listlevel \levelnfc0\levelfollow0\levelstartat1{\leveltext \'02\'02.}{\levelnumbers \'01}}{\listlevel\levelnfc0\levelfollow0\levelstartat1{\leveltext \'02\'03.}{\levelnumbers \'01}}{\listlevel\levelnfc0\levelfoll ow0\levelstartat1{\leveltext \'02\'04.}{\levelnumbers \'01}}{\listlevel\levelnfc0\levelfollow0\levelstartat1{\leveltext \'02\'05.}{\levelnumbers \'01}}{\listlevel\levelnfc0\levelfollow0\levelstartat1{\leveltext \'02\'06.}{\levelnumbers \'01}}{\listlevel\levelnfc0\levelfollow0\levelstartat1{\leveltext \ '02\'07.}{\levelnumbers \'01}}{\listlevel\levelnfc0\levelfollow0\levelstartat1{\leveltext \'02\08.}{ \levelnumbers \'01}}{\listname [facility]-List3;}\[id number]}{\list\listtemplateid1{\listlevel\leveln fc0\levelfollow0\levelstartat1{\leveltext \'02\'00.}{\levelnumbers \'01}}{\listlevel\levelnfc0\levelfollow0\levelstartat1{\leveltext \'02\'.}{\levelnumbers \'01}}{\listlevel\levelnfc0\levelfollow0\lev elstartat1{\leveltext \'02\'02.}{\levelnumbers \'01}}{\listlevel\levelnfc0\levelfollow0\levelstartat1{\leveltext \'02\'03.}{\levelnumbers \'01}}{\listlevel\levelnfc0\levelfollow0\levelstartat1{\leveltext \'02\'04.}{\levelnumbers \'01}}{\listlevel\levelnfc0\levelfollow0\levelstartat1{\leveltext \'02\'05 .}{\levelnumbers \'01}}{\listlevel\levelnfc0\levelfollow0\levelstartat1{\leveltext \'02\'06.}{\levelnumbers \'01}}{\listlevel\levelnfc0\levelfollow0\levelstartat1{\leveltext \'02\'07.}{\levelnumbers \'0 1}}{\listlevel\levelnfc0\levelfollow0\levelstartat1{\leveltext \'\08.}{\levelnumbers \'01}}{\listname Qilx6399501824_0;}\[id number]}{\list\listtemplateid2{\listlevel\levelnfc0\ levelfollow0\levelstartat1{\leveltext \'02\'00.}{\levelnumbers \'01}}{\listlevel\levelnfc0\levelfollow0\levelstartat1{\leveltext \'02\'01.}{\levelnumbers \'01}}{\listlevel\levelnfc0\levelfollow0\levelstartat1{\leveltext \'02\'02.}{\levelnumbers \'01}}{\listlevel\levelnfc0\levelfollow0\levelstartat1{\leveltext \'02\'03. }{\levelnumbers \'01}}{\listlevel\levelnfc0\levelfollow0\levelstartat1{\leveltext \'02\'04.}{\levelnumbers \'01}}{\listlevel\levelnfc0\levelfollow0\levelstartat1{\leveltext \'02\'05.}{\levelnumbers \'01 }}{\listlevel\levelnfc0\levelfollow0\levelstartat1{\leveltext \'02\'06.}{\levelnumbers \'01}}{\listle gilma\levelnfc0\levelfollow0\levelstartat1{\leveltext \'02\'07.}{\levelnumbers \'01}}{\listlevel\levelnfc0\levelfollow0\levelstartat1{\leveltext \'02\'08.}{\levelnumbers \'01}}{\listname [id number]; }\[id number]}{\list\[id number]{\listlevel\sraeslqk32\levelfo llow0\levelstartat5{\leveltext \'01n}{\levelnumbers}\f4\fs16}{\listlevel\uxgbiqqw41\levelfollow0\levelstartat5{ \leveltext\'01- }{\levelnumbers}\fs22}{\listlevel\\levelfollow0\levelstartat1{\levelte xt \'01o}{\level numbers}\f3\fs22}{\listlevel\nlrixyjk30\levelfollow0\levelstartat1{\leveltext \'01\'b7}{\levelnumbers }\f2\fs22}{\listlevel\dgivqevg70\levelfollow0\levelstartat1{\leveltext \'01o}{\levelnumbers}\f3\fs22} {\listlevel\lidwypxc68\levelfollow0\levelstartat1{\leveltext \'01\'a7}{\levelnumbers}\f4\fs22}{\listl evel\eixbiqau57\levelfollow0\levelstartat1{\leveltext \'01\'b7}{\levelnumbers}\f2\fs22}{\listlevel\le jxfzot61\levelfollow0\levelstartat1{\leveltext \'01o}{\levelnumbers}\f3\fs22}{\listlevel\udpatiyx84\l evelfollow0\levelstartat1{\leveltext \'01\'a7}{\levelnumbers}\f4\fs22}{\listname ;}\[id number]} {\list\[id number]{\listlevel\ecxjbwtv39\levelfollow0\levelstartat1 {\leveltext \'01\x97968 ?}{\levelnumbers}\f4}{\listlevel\llxtesum24\levelfollow0\levelstartat1{\leveltex t \'01\o94060 ?}{\ levelnumbers}\f4}{\listlevel\cacsuery59\levelfollow0\levelstartat1{\leveltext \'\y38259 ?}{\levelnu mbers}\f4}{\listlevel\jitihqtp37\levelfollow0\levelstartat1{\leveltext \'\m71462 ?}{\levelnumbers}\ f4}{\listlevel\lzdcovyj60\levelfollow0\levelstartat1{\leveltext \'\k86609 ?}{\levelnumbers}\f4}{\li stlevel\\levelfollow0\levelstartat1{\leveltext \'\b08959 ?}{\levelnumbers}\f4}{\listlevel \ysazoqqn06\levelfollow0\levelstartat1{\leveltext \'\b07639 ?}{\levelnumbers}\f4}{\listlevel\leveln fc23\levelfollow0\levelstartat1{\leveltext \'\z12266 ?}{\levelnumbers}\f4}{\listlevel\\le velfollow0\levelstartat1{\leveltext \'\j27346 ?}{\levelnumbers}\f4}{\listname ;}\[id number]}{\l ist\[id number]{\listlevel\hfgaeaob23\levelfollow0\levelstartat1{\le veltext \'\k44225 ? }{\levelnumbers}\f4}{\listlevel\edgzfmgw32\levelfollow0\levelstartat1{\leveltext \'\g37400 ?}{\leve lnumbers}\f4}{\listlevel\zizcxaia92\levelfollow0\levelstartat1{\leveltext \'\p28845 ?}{\levelnumber s}\f4}{\listlevel\cihavdlz86\levelfollow0\levelstartat1{\leveltext \'\z01769 ?}{\levelnumbers}\f4}{ \listlevel\pbceeqez20\levelfollow0\levelstartat1{\leveltext \'\y73945 ?}{\levelnumbers}\f4}{\listle gilma\imvwmksh06\levelfollow0\levelstartat1{\leveltext \'\y21557 ?}{\levelnumbers}\f4}{\listlevel\lev elnfc23\levelfollow0\levelstartat1{\leveltext \'\z76524 ?}{\levelnumbers}\f4}{\listlevel\tihlsfyd88 \levelfollow0\levelstartat1{\leveltext \'\t80082 ?}{\levelnumbers}\f4}{\listlevel\cjfovgut28\levelf ollow0\levelstartat1{\leveltext \'s56272 ?}{\levelnumbers}\f4}{\listname ;}\[id number]}{\list\listtemplateid- [id number]{\listlevel\levelnfc4\levelfollow0\levelstartat1{\leveltext \'02\'00)}{\levelnumbers \'}\fcs1\f5\af5\fcs0\rtlch\f5\af5\ltrch}{\listlevel\levelnfc4\levelfollow0\lev elstartat1{\leveltext \'\)}{\levelnumbers \'}\fcs1\f5\af5\fcs0\rtlch\f5\af5\ltrch}{\listlevel\levelnfc4\l evelfollow0\levelstartat1{\leveltext \'02\02)}{\levelnumbers \'01}\fcs1\f5\af5\fcs0\rtlch\f5\af5\ltr ch}{\listlevel\levelnfc4\levelfollow0\levelstartat1{\leveltext \'02\03)}{\levelnumbers \'01}\fcs1\f5 \af5\fcs0\rtlch\f5\af5\ltrch}{\listlevel\levelnfc4\levelfollow0\levelstartat1{\l eveltext \'02\'04)}{\levelnumbers \'01}\fcs1\f5\af5\fcs0\rtlch\f5\af5\ltrch}{\listlevel\levelnfc4\levelfollow0\lev elstartat1{\leveltext \'02\'05)}{\levelnumbers \'01}\fcs1\f5\af5\fcs0\rtlch\f5\af5\ltrch}{\listlevel\levelnfc 4\levelfollow0\levelstartat1{\leveltext \'02\06)}{\levelnumbers \'01}\fcs1\f5\af5\fcs0\rtlch\f5\af5\ ltrch}{\listlevel\levelnfc4\levelfollow0\levelstartat1{\leveltext \'02\07)}{\levelnumbers \'01}\fcs1 \f5\af5\fcs0\rtlch\f5\af5\ltrch}{\listlevel\levelnfc4\levelfollow0\levelstartat1 {\leveltext \'02\08)}{\levelnumbers \'01}\fcs1\f5\af5\fcs0\rtlch\f5\af5\ltrch}{\listname ;}\[id number]}{\list\listt emplateid1{\listlevel\levelnfc0\levelfollow0\levelstartat1{\leveltext \'02\'00.}{\levelnumbers \'01}} {\listlevel\levelnfc0\levelfollow0\levelstartat1{\leveltext \'02\'01.}{\levelnumbers \'01}}{\listleve l\levelnfc0\levelfollow0\levelstartat1{\leveltext \'02\'02.}{\levelnumbers \'01}}{\listlevel\levelnfc0\levelfollow0\levelstartat1{\leveltext \'02\03.}{\levelnumbers \'01}}{\listlevel\levelnfc0\levelfol low0\levelstartat1{\leveltext \'02\'04.}{\levelnumbers \'01}}{\listlevel\levelnfc0\levelfollow0\levelstartat1{\leveltext \'02\'05.}{\levelnumbers \'01}}{\listlevel\levelnfc0\levelfollow0\levelstartat1{\leveltext \'02\'06.}{\levelnumbers \'01}}{\listlevel\levelnfc0\levelfollow0\levelstartat1{\leveltext \'\07.}{\levelnumbers \'01}}{\listlevel\levelnfc0\levelfollow0\levelstartat1{\leveltext \'02\'08.} {\levelnumbers \'01}}{\listname Lbyt9950905931_0;}\[id number]}{\list\uyxmddauinteqf181644836{\l istlevel\cctpyxjc77\levelfollow0\levelstartat1{\leveltext \'\'b7}{\levelnumbers}\f2\fs20}{\listleve l\mtvpkikx63\levelfollow0\levelstartat1{\leveltext \'01o}{\levelnumbers}\f3\fs20}{\listlevel\levelnfc 23\levelfollow0\levelstartat1{\leveltext \'01\'a7}{\levelnumbers}\f4\fs20}{\listlevel\xytmjbmq86\leve lfollow0\levelstartat1{\leveltext \'\'a7}{\levelnumbers}\f4\fs20}{\listlevel\jlidilau43\levelfollow 0\levelstartat1{\leveltext \'\'a7}{\levelnumbers}\f4\fs20}{\listlevel\jhldgxtu84\levelfollow0\level startat1{\leveltext \'\'a7}{\levelnumbers}\f4\fs20}{\listlevel\roksxdil08\levelfollow0\levelstarta t1{\leveltext \'\'a7}{\levelnumbers}\f4\fs20}{\listlevel\\levelfollow0\levelstarta t1{\leveltext \'\'a7}{\levelnumbers}\f4\fs20}{\listlevel\\levelfollow0\levelstarta t1{\leveltext \'\'a7}{\levelnumbers}\f4\fs20}{\listname ;}\[id number]}{\list\fxextqxqdqbexh222590617{\listle gilma\nweuvwdm32\levelfollow0\levelstartat1{\leveltext \'\'b7}{\levelnumbers}\f2\fs22}{\listlevel\lev elnfc23\levelfollow0\levelstartat1{\leveltext \'01o}{\levelnumbers}\f3\fs22}{\listlevel\byottngn01\le velfollow0\levelstartat1{\leveltext \'\'a7}{\levelnumbers}\f4\fs22}{\listlevel\\levelfoll ow0\levelstartat1{\leveltext \'\'b7}{\levelnumbers}\f2\fs22}{\listlevel\qjtngebo39\levelfollow0\lev elstartat1{\leveltext \'01o}{\levelnumbers}\f3\fs22}{\listlevel\cnhugpbn73\levelfollow0\levelstartat1 {\leveltext \'01\'a7}{\levelnumbers}\f4\fs22}{\listlevel\zgowylda77\levelfollow0\levelstarta t1{\leveltext \'01\'b7}{\levelnumbers}\f2\fs22}{\listlevel\oxbvplhh39\levelfollow0\levelstarta t1{\leveltext \' 01o}{\levelnumbers}\f3\fs22}{\listlevel\byyqbmbi47\levelfollow0\levelstartat1{\l eveltext \'01\'a7}{\levelnumbers}\f4\fs22}{\listname ;}\[id number]}{\list\listtemplateid-[id number]{\listlevel\level nfc23\levelfollow0\levelstartat1{\leveltext \'\g90873 ?}{\levelnumbers}\f2}{\listlevel\maeuybep65\l evelfollow0\levelstartat1{\leveltext \'01o}{\levelnumbers}\f3}{\listlevel\kbbxbeyx34\levelfollow0\lev elstartat1{\leveltext \'\m32413 ?}{\levelnumbers}\f4}{\listlevel\ugoncdva36\levelfollow0\levelstart at1{\leveltext \'01\k39789 ?}{\levelnumbers}\f2}{\listlevel\msemqrvd47\levelfollow0\levelstartat1{\le veltext \'01o}{\levelnumbers}\f3}{\listlevel\edysmvsf99\levelfollow0\levelstartat1{\leve ltext \'\u16011 ?}{\levelnumbers}\f4}{\listlevel\zltqzxep67\levelfollow0\levelstartat1{\leveltex t \'\i92237 ?} {\levelnumbers}\f2}{\listlevel\beinhzdg50\levelfollow0\levelstartat1{\leveltext \'01o}{\levelnumbers} \f3}{\listlevel\kedvgqio87\levelfollow0\levelstartat1{\leveltext \'01\j06351 ?}{\levelnumbers}\f4}{\listname ;}\[id number]}{\list\listtemplateid2{\listlevel\levelnfc0\levelfollow0\leve lstartat1{\leveltext \'02\'00.}{\levelnumbers \'01}}{\listlevel\levelnfc0\levelfollow0\levelstartat1{\leveltext \' 02\'.}{\levelnumbers \'01}}{\listlevel\levelnfc0\levelfollow0\levelstartat1{\leveltext \'02\'02.}{\ levelnumbers \'01}}{\listlevel\levelnfc0\levelfollow0\levelstartat1{\leveltext \'02\'03.}{\levelnumbers \'01}}{\listlevel\levelnfc0\levelfollow0\levelstartat1{\leveltext \'02\'04.}{\levelnumbers \'01}}{ \listlevel\levelnfc0\levelfollow0\levelstartat1{\leveltext \'02\'05.}{\levelnumbers \'01}}{\listlevel\levelnfc0\levelfollow0\levelstartat1{\leveltext \'02\'06.}{\levelnumbers \'01}}{\li stlevel\levelnfc0\levelfollow0\levelstartat1{\leveltext \'02\'07.}{\levelnumbers \'01}}{\listlevel\levelnfc0\levelfollow0\levelstartat1{\leveltext \'02\'08.}{\levelnumbers \'01}}{\listname [id number] 1_1;}\[id number]}{\list\listtemplateid-[id number]{\listlevel\xvwaluhi39\le velfollow0\levelstartat1{\leveltext \'01\'b7}{\levelnumbers}\f2\fs22}{\listlevel\eehdrxpw57\levelfollow0\levelstarta t1{\leveltext \'01o}{\levelnumbers}\f3\fs22}{\listlevel\kpcrziou37\levelfollow0\levelstartat1{ \leveltext \' 01\'a7}{\levelnumbers}\f4\fs22}{\listlevel\baprwavq36\levelfollow0\levelstartat1 {\leveltext \'01\'b7} {\levelnumbers}\f2\fs22}{\listlevel\sckyjdmj06\levelfollow0\levelstartat1{\level text \'01o}{\levelnum bers}\f3\fs22}{\listlevel\iqbpkojd90\levelfollow0\levelstartat1{\leveltext \'01\'a7}{\levelnumbers}\f 4\fs22}{\listlevel\kdrjzxuf87\levelfollow0\levelstartat1{\leveltext \'01\'b7}{\levelnumbers}\f2\fs22} {\listlevel\oaazykkf30\levelfollow0\levelstartat1{\leveltext \'01o}{\levelnumbers}\f3\fs22}{\listleve l\tzcmjixa41\levelfollow0\levelstartat1{\leveltext \'01\'a7}{\levelnumbers}\f4\fs22}{\listname ;}\lis [id number]}{\list\fysfujsqbzgdzl38{\listlevel\levelnfc0\levelfollow0\levelsta rtat1{\leveltext \'02\'00.}{\levelnumbers \'01}}{\listlevel\levelnfc0\levelfollow0\levelstartat1{\leveltext \'02\.}{\le velnumbers \'}}{\listlevel\levelnfc0\levelfollow0\levelstartat1{\leveltext \'02\02.}{\levelnumbers \'}}{\listlevel\levelnfc0\levelfollow0\levelstartat1{\leveltext \'02\03.}{\levelnumbers \'}}{\l istlevel\levelnfc0\levelfollow0\levelstartat1{\leveltext \'02\04.}{\levelnumbers \}}{\listlevel\l evelnfc0\levelfollow0\levelstartat1{\leveltext \'02\05.}{\levelnumbers \'}}{\listlevel\levelnfc0\levelfollow0\levelstartat1{\leveltext \'02\'06.}{\levelnumbers \'}}{\listlevel\levelnfc0\levelfollow 0\levelstartat1{\leveltext \'02\07.}{\levelnumbers \'}}{\listlevel\levelnfc0\levelfollow0\levelstartat1{\leveltext \'02\08.}{\levelnumbers \'}}{\listname [id number];}\[id number]}{\list \slokokimtgzmse11{\listlevel\levelnfc0\levelfollow0\levelstartat1{\leveltext \'02\'00.}{\levelnumbers \'}}{\listlevel\levelnfc0\levelfollow0\levelstartat1{\leveltext \'02\'.}{\levelnumbers \'01}}{\l istlevel\levelnfc0\levelfollow0\levelstartat1{\leveltext \'02\'02.}{\levelnumbers \'01}}{\listlevel\l evelnfc0\levelfollow0\levelstartat1{\leveltext \'02\'03.}{\levelnumbers \'01}}{\listlevel\levelnfc0\levelfollow0\levelstartat1{\leveltext \'02\'04.}{\levelnumbers \'01}}{\listlevel\levelnfc0\levelfollow 0\levelstartat1{\leveltext \'02\'05.}{\levelnumbers \'01}}{\listlevel\levelnfc0\levelfollow0\levelstartat1{\leveltext \'02\'06.}{\levelnumbers \'01}}{\listlevel\levelnfc0\levelfollow0\levelstartat1{\leveltext \'02\'07.}{\levelnumbers \'01}}{\listlevel\levelnfc0\levelfollow0\levelstartat1{\leveltext \'0 2\'08.}{\levelnumbers \'01}}{\listname [id number];}\[id number]}{\list\cerbmwwtqisioq46{\l istlevel\levelnfc0\levelfollow0\levelstartat1{\leveltext \'02\'00.}{\levelnumbers \'01}}{\listlevel\l evelnfc0\levelfollow0\levelstartat1{\leveltext \'02\'01.}{\levelnumbers \'01}}{\listlevel\levelnfc0\levelfollow0\levelstartat1{\leveltext \'02\'02.}{\levelnumbers \'01}}{\listlevel\levelnfc0\levelfollow 0\levelstartat1{\leveltext \'02\'03.}{\levelnumbers \'01}}{\listlevel\levelnfc0\levelfollow0\levelstartat1{\leveltext \'02\'04.}{\levelnumbers \'01}}{\listlevel\levelnfc0\levelfollow0\levelstartat1{\leveltext \'02\'05.}{\levelnumbers \'01}}{\listlevel\levelnfc0\levelfollow0\levelstartat1{\leveltext \'0 2\'06.}{\levelnumbers \'01}}{\listlevel\levelnfc0\levelfollow0\levelstartat1{\leveltext \'02\'07.}{\l evelnumbers \'01}}{\listlevel\levelnfc0\levelfollow0\levelstartat1{\leveltext \'02\'08.}{\levelnumbers \'01}}{\listname [id number];}\[id number]}{\list\sjcayahexfxuzu74{\listlevel\levelnfc0 \levelfollow0\levelstartat1{\leveltext \'02\'00.}{\levelnumbers \'01}}{\listlevel\levelnfc0\levelfollow0\levelstartat1{\leveltext \'02\'01.}{\levelnumbers \'01}}{\listlevel\levelnfc0\levelfollow0\levelsta rtat1{\leveltext \'02\'02.}{\levelnumbers \'01}}{\listlevel\levelnfc0\levelfollow0\levelstartat1{\leveltext \'02\'03.}{\levelnumbers \'01}}{\listlevel\levelnfc0\levelfollow0\levelstartat1{\leveltext \'0 2\'04.}{\levelnumbers \'01}}{\listlevel\levelnfc0\levelfollow0\levelstartat1{\leveltext \'02\'05.}{\l evelnumbers \'01}}{\listlevel\levelnfc0\levelfollow0\levelstartat1{\leveltext \'02\'06.}{\levelnumbers \'01}}{\listlevel\levelnfc0\levelfollow0\levelstartat1{\leveltext \'02\'07.}{\levelnumbers \'01}}{\ listlevel\levelnfc0\levelfollow0\levelstartat1{\leveltext \'02\08.}{\levelnumbers \'01}}{\listname L [id number];}\[id number]}{\list\gvmlccpherkumq94{\listlevel\levelnfc0\ levelfollow0\levelstartat1{\leveltext \'02\'00.}{\levelnumbers \'01}}{\listlevel\levelnfc0\levelfollow0\levelstartat1{\leveltext \'02\'01.}{\levelnumbers \'}}{\listlevel\levelnfc0\levelfollow0\levelstartat1{\leveltext \'0 2\'02.}{\levelnumbers \'01}}{\listlevel\levelnfc0\levelfollow0\levelstartat1{\leveltext \'02\'03.}{\l evelnumbers \'01}}{\listlevel\levelnfc0\levelfollow0\levelstartat1{\leveltext \'02\'04.}{\levelnumbers \'01}}{\listlevel\levelnfc0\levelfollow0\levelstartat1{\leveltext \'02\'05.}{\levelnumbers \'01}}{\ listlevel\levelnfc0\levelfollow0\levelstartat1{\leveltext \'02\06.}{\levelnumbers \'01}}{\listlevel\ levelnfc0\levelfollow0\levelstartat1{\leveltext \'02\07.}{\levelnumbers \'01}}{\listlevel\levelnfc0\levelfollow0\levelstartat1{\leveltext \'02\08.}{\levelnumbers \'01}}{\listname [id number];}\li [id number]}{\list\hifqugrqlotmbz25{\listlevel\levelnfc0\levelfollow0\levelst artat1{\leveltext \'02\'00.}{\levelnumbers \'01}}{\listlevel\levelnfc0\levelfollow0\levelstartat1{\leveltext \'\.}{\l evelnumbers \'01}}{\listlevel\levelnfc0\levelfollow0\levelstartat1{\leveltext \'02\'02.}{\levelnumbers \'01}}{\listlevel\levelnfc0\levelfollow0\levelstartat1{\leveltext \'02\'03.}{\levelnumbers \'01}}{\ listlevel\levelnfc0\levelfollow0\levelstartat1{\leveltext \'02\04.}{\levelnumbers \'01}}{\listlevel\ levelnfc0\levelfollow0\levelstartat1{\leveltext \'02\'05.}{\levelnumbers \'01}}{\listlevel\levelnfc0\levelfollow0\levelstartat1{\leveltext \'02\'06.}{\levelnumbers \'01}}{\listlevel\levelnfc0\levelfollo w0\levelstartat1{\leveltext \'02\07.}{\levelnumbers \'01}}{\listlevel\levelnfc0\levelfollow0\levelstartat1{\leveltext \'02\08.}{\levelnumbers \'01}}{\listname [id number];}\[id number]}{\lis t\nilzneumebksad18{\listlevel\levelnfc0\levelfollow0\levelstartat1{\leveltext \'02\'00.}{\levelnumbers \'01}}{\listlevel\levelnfc0\levelfollow0\levelstartat1{\leveltext \'02\'.}{\levelnumbers \'01}}{\ listlevel\levelnfc0\levelfollow0\levelstartat1{\leveltext \'02\'02.}{\levelnumbers \'01}}{\listlevel\ levelnfc0\levelfollow0\levelstartat1{\leveltext \'02\'03.}{\levelnumbers \'01}}{\listlevel\levelnfc0\levelfollow0\levelstartat1{\leveltext \'02\04.}{\levelnumbers \'01}}{\listlevel\levelnfc0\levelfollo w0\levelstartat1{\leveltext \'02\'05.}{\levelnumbers \'01}}{\listlevel\levelnfc0\levelfollow0\levelstartat1{\leveltext \'02\'06.}{\levelnumbers \'01}}{\listlevel\levelnfc0\levelfollow0\levelstartat1{\leveltext \'02\07.}{\levelnumbers \'01}}{\listlevel\levelnfc0\levelfollow0\levelstartat1{\leveltext \' 02\08.}{\levelnumbers \'01}}{\listname [id number]_8;}\[id number]}{\list\dyxcfsuxdasklb68{\ listlevel\levelnfc0\levelfollow0\levelstartat1{\leveltext \'02\'00.}{\levelnumbers \'01}}{\listlevel\ levelnfc0\levelfollow0\levelstartat1{\leveltext \'02\'01.}{\levelnumbers \'01}}{\listlevel\levelnfc0\levelfollow0\levelstartat1{\leveltext \'02\'02.}{\levelnumbers \'01}}{\listlevel\levelnfc0\levelfollo w0\levelstartat1{\leveltext \'02\'03.}{\levelnumbers \'01}}{\listlevel\levelnfc0\levelfollow0\levelstartat1{\leveltext \'02\'04.}{\levelnumbers \'01}}{\listlevel\levelnfc0\levelfollow0\levelstartat1{\leveltext \'02\'05.}{\levelnumbers \'01}}{\listlevel\levelnfc0\levelfollow0\levelstartat1{\leveltext \' 02\'06.}{\levelnumbers \'01}}{\listlevel\levelnfc0\levelfollow0\levelstartat1{\leveltext \'02\'07.}{\ levelnumbers \'01}}{\listlevel\levelnfc0\levelfollow0\levelstartat1{\leveltext \'02\'08.}{\levelnumbers \'01}}{\listname [id number]_1;}\[id number]}{\list\{\listlevel\levelnfc0 \levelfollow0\levelstartat1{\leveltext \'02\'00.}{\levelnumbers \'01}}{\listlevel\levelnfc0\levelfollow0\levelstartat1{\leveltext \'02\'01.}{\levelnumbers \'01}}{\listlevel\levelnfc0\levelfollow0\levelst artat1{\leveltext \'02\'02.}{\levelnumbers \'01}}{\listlevel\levelnfc0\levelfollow0\levelstartat1{\leveltext \'02\'03.}{\levelnumbers \'01}}{\listlevel\levelnfc0\levelfollow0\levelstartat1{\leveltext \' 02\'04.}{\levelnumbers \'01}}{\listlevel\levelnfc0\levelfollow0\levelstartat1{\leveltext \'02\'05.}{\ levelnumbers \'01}}{\listlevel\levelnfc0\levelfollow0\levelstartat1{\leveltext \'02\'06.}{\levelnumbers \'01}}{\listlevel\levelnfc0\levelfollow0\levelstartat1{\leveltext \'02\'07.}{\levelnumbers \'01}}{ \listlevel\levelnfc0\levelfollow0\levelstartat1{\leveltext \'02\'08.}{\levelnumbers \'01}}{\listname [id number];}\[id number]}{\list\upiuzeeslptrnm26{\listlevel\levelnfc0 \levelfollow0\levelstartat1{\leveltext \'02\'00.}{\levelnumbers \'01}}{\listlevel\levelnfc0\levelfollow0\levelstartat1{\leveltext \'02\'01.}{\levelnumbers \'01}}{\listlevel\levelnfc0\levelfollow0\levelstartat1{\leveltext \' 02\'02.}{\levelnumbers \'01}}{\listlevel\levelnfc0\levelfollow0\levelstartat1{\leveltext \'\03.}{\ levelnumbers \'01}}{\listlevel\levelnfc0\levelfollow0\levelstartat1{\leveltext \'02\04.}{\levelnumbers \'01}}{\listlevel\levelnfc0\levelfollow0\levelstartat1{\leveltext \'02\05.}{\levelnumbers \'01}}{ \listlevel\levelnfc0\levelfollow0\levelstartat1{\leveltext \'\06.}{\levelnumbers \'01}}{\listlevel \levelnfc0\levelfollow0\levelstartat1{\leveltext \'\07.}{\levelnumbers \'01}}{\listlevel\levelnfc0\levelfollow0\levelstartat1{\leveltext \'02\08.}{\levelnumbers \'01}}{\listname [id number];}\l [id number]}{\list\hjaycicjzjcley63{\listlevel\levelnfc0\levelfollow0\levels tartat1{\leveltext \'02\'00.}{\levelnumbers \'01}}{\listlevel\levelnfc0\levelfollow0\levelstartat1{\leveltext \'02\'01.}{\ levelnumbers \'01}}{\listlevel\levelnfc0\levelfollow0\levelstartat1{\leveltext \'02\'02.}{\levelnumbers \'01}}{\listlevel\levelnfc0\levelfollow0\levelstartat1{\leveltext \'\03.}{\levelnumbers \'01}}{ \listlevel\levelnfc0\levelfollow0\levelstartat1{\leveltext \'02\'04.}{\levelnumbers \'01}}{\listlevel \levelnfc0\levelfollow0\levelstartat1{\leveltext \'02\05.}{\levelnumbers \'01}}{\listlevel\levelnfc0\levelfollow0\levelstartat1{\leveltext \'02\06.}{\levelnumbers \'01}}{\listlevel\levelnfc0\levelfoll ow0\levelstartat1{\leveltext \'02\07.}{\levelnumbers \'01}}{\listlevel\levelnfc0\levelfollow0\levelstartat1{\leveltext \'02\08.}{\levelnumbers \'01}}{\listname [id number];}\[id number]}{\li st\knehqchpwmscfk74{\listlevel\levelnfc0\levelfollow0\levelstartat1{\leveltext \'02\'00.}{\levelnumbers \'01}}{\listlevel\levelnfc0\levelfollow0\levelstartat1{\leveltext \'02\'01.}{\levelnumbers \'01}}{ \listlevel\levelnfc0\levelfollow0\levelstartat1{\leveltext \'02\'02.}{\levelnumbers \'01}}{\listlevel \levelnfc0\levelfollow0\levelstartat1{\leveltext \'02\'03.}{\levelnumbers \'01}}{\listlevel\levelnfc0\levelfollow0\levelstartat1{\leveltext \'02\'04.}{\levelnumbers \'01}}{\listlevel\levelnfc0\levelfoll ow0\levelstartat1{\leveltext \'02\'05.}{\levelnumbers \'01}}{\listlevel\levelnfc0\levelfollow0\levelstartat1{\leveltext \'02\06.}{\levelnumbers \'01}}{\listlevel\levelnfc0\levelfollow0\levelstartat1{\leveltext \'02\'07.}{\levelnumbers \'01}}{\listlevel\levelnfc0\levelfollow0\levelstartat1{\leveltext \ '02\08.}{\levelnumbers \'01}}{\listname [id number];}\[phone]}{\list\edijqvaloyuafs63{ \listlevel\levelnfc0\levelfollow0\levelstartat1{\leveltext \'02\'00.}{\levelnumbers \'01}}{\listlevel \levelnfc0\levelfollow0\levelstartat1{\leveltext \'02\'.}{\levelnumbers \'01}}{\listlevel\levelnfc0\levelfollow0\levelstartat1{\leveltext \'02\'02.}{\levelnumbers \'01}}{\listlevel\levelnfc0\levelfoll ow0\levelstartat1{\leveltext \'02\'03.}{\levelnumbers \'01}}{\listlevel\levelnfc0\levelfollow0\levelstartat1{\leveltext \'02\'04.}{\levelnumbers \'01}}{\listlevel\levelnfc0\levelfollow0\levelstartat1{\leveltext \'02\'05.}{\levelnumbers \'01}}{\listlevel\levelnfc0\levelfollow0\levelstartat1{\leveltext \ '02\'06.}{\levelnumbers \'01}}{\listlevel\levelnfc0\levelfollow0\levelstartat1{\leveltext \'02\'07.}{ \levelnumbers \'01}}{\listlevel\levelnfc0\levelfollow0\levelstartat1{\leveltext \'02\'08.}{\levelnumbers \'01}}{\listname [id number];}\[id number]}{\list\[id number]{\listlevel\l evelnfc0\levelfollow0\levelstartat1{\leveltext \'02\'00.}{\levelnumbers \'01}}{\listlevel\levelnfc0\levelfollow0\levelstartat1{\leveltext \'02\'01.}{\levelnumbers \'01}}{\listlevel\levelnfc0\levelfollow 0\levelstartat1{\leveltext \'02\'02.}{\levelnumbers \'01}}{\listlevel\levelnfc0\levelfollow0\levelstartat1{\leveltext \'02\'03.}{\levelnumbers \'01}}{\listlevel\levelnfc0\levelfollow0\levelstartat1{\leveltext \'02\'04.}{\levelnumbers \'01}}{\listlevel\levelnfc0\levelfollow0\levelstartat1{\leveltext \'0 2\'05.}{\levelnumbers \'01}}{\listlevel\levelnfc0\levelfollow0\levelstartat1{\leveltext \'02\'06.}{\l evelnumbers \'01}}{\listlevel\levelnfc0\levelfollow0\levelstartat1{\leveltext \'02\'07.}{\levelnumbers \'01}}{\listlevel\levelnfc0\levelfollow0\levelstartat1{\leveltext \'02\'08.}{\levelnumbers \'01}}{\listname [id number];}\[id number]}{\list\fkrymxmbpkxscu5741424822{\listlevel\l evelnfc0\levelfollow0\levelstartat1{\leveltext \'02\'00.}{\levelnumbers \'01}}{\listlevel\levelnfc0\levelfollow0\levelstartat1{\leveltext \'02\'01.}{\levelnumbers \'01}}{\listlevel\levelnfc0\levelfollow0\levelstart at1{\leveltext \'02\'02.}{\levelnumbers \'01}}{\listlevel\levelnfc0\levelfollow0\levelstartat1{\leveltext \'02\'03.}{\levelnumbers \'01}}{\listlevel\levelnfc0\levelfollow0\levelstartat1{\leveltext \'02\ '04.}{\levelnumbers \'01}}{\listlevel\levelnfc0\levelfollow0\levelstartat1{\leveltext \'02\'05.}{\levelnumbers \'01}}{\listlevel\levelnfc0\levelfollow0\levelstartat1{\leveltext \'02\'06.}{\levelnumbers \'01}}{\listlevel\levelnfc0\levelfollow0\levelstartat1{\leveltext \'02\'07.}{\levelnumbers \'01}}{\li stlevel\levelnfc0\levelfollow0\levelstartat1{\leveltext \'02\'08.}{\levelnumbers \'01}}{\listname Lis [id number];}\[id number]}{\list\[id number]{\listlevel\leve lnfc0\levelfollow0\levelstartat1{\leveltext \'02\'00.}{\levelnumbers \'01}}{\listlevel\levelnfc0\levelfollow0\levelstartat1{\leveltext \'02\'01.}{\levelnumbers \'01}}{\listlevel\levelnfc0\levelfollow0\levelstartat1{\leveltext \'02\'02.}{\levelnumbers \'01}}{\listlevel\levelnfc0\levelfollow0\levelstartat1{\leveltext \'02\'0 3.}{\levelnumbers \'01}}{\listlevel\levelnfc0\levelfollow0\levelstartat1{\leveltext \'02\'04.}{\levelnumbers \'01}}{\listlevel\levelnfc0\levelfollow0\levelstartat1{\leveltext \'02\'05.}{\levelnumbers \' 01}}{\listlevel\levelnfc0\levelfollow0\levelstartat1{\leveltext \'02\'06.}{\levelnumbers \'01}}{\list level\levelnfc0\levelfollow0\levelstartat1{\leveltext \'02\'07.}{\levelnumbers \'01}}{\listlevel\levelnfc0\levelfollow0\levelstartat1{\leveltext \'02\'08.}{\levelnumbers \'01}}{\listname [id number]_ 1;}\[id number]}{\list\[id number]{\listlevel\levelnfc0\levelf ollow0\levelstartat1{\leveltext \'02\'00.}{\levelnumbers \'01}}{\listlevel\levelnfc0\levelfollow0\levelstartat1{\leveltext \'02\'01.}{\levelnumbers \'01}}{\listlevel\levelnfc0\levelfollow0\levelstartat1{\leveltext \'02\'02. }{\levelnumbers \'01}}{\listlevel\levelnfc0\levelfollow0\levelstartat1{\leveltext \'02\'03.}{\levelnumbers \'01}}{\listlevel\levelnfc0\levelfollow0\levelstartat1{\leveltext \'02\'04.}{\levelnumbers \'01 }}{\listlevel\levelnfc0\levelfollow0\levelstartat1{\leveltext \'02\05.}{\levelnumbers \'}}{\listle gilma\levelnfc0\levelfollow0\levelstartat1{\leveltext \'02\'06.}{\levelnumbers \'}}{\listlevel\levelnfc0\levelfollow0\levelstartat1{\leveltext \'02\'07.}{\levelnumbers \'}}{\listlevel\levelnfc0\levelf ollow0\levelstartat1{\leveltext \'02\'08.}{\levelnumbers \'}}{\listname [id number];}\ectldo03 [id number]}{\list\[id number]{\listlevel\levelnfc0\levelfollow0\level startat1{\leveltext \'02\'00.}{\levelnumbers \'01}}{\listlevel\levelnfc0\levelfollow0\levelstartat1{\leveltext \'02\'.}{ \levelnumbers \'01}}{\listlevel\levelnfc0\levelfollow0\levelstartat1{\leveltext \'02\'02.}{\levelnumbers \'01}}{\listlevel\levelnfc0\levelfollow0\levelstartat1{\leveltext \'02\'03.}{\levelnumbers \'01}} {\listlevel\levelnfc0\levelfollow0\levelstartat1{\leveltext \'02\04.}{\levelnumbers \'01}}{\listleve l\levelnfc0\levelfollow0\levelstartat1{\leveltext \'02\05.}{\levelnumbers \'01}}{\listlevel\levelnfc0\levelfollow0\levelstartat1{\leveltext \'02\'06.}{\levelnumbers \'01}}{\listlevel\levelnfc0\levelfol low0\levelstartat1{\leveltext \'02\07.}{\levelnumbers \'01}}{\listlevel\levelnfc0\levelfollow0\levelstartat1{\leveltext \'02\08.}{\levelnumbers \'01}}{\listname [id number]_9;}\[id number]}{\l ist\cbqrqvyoezojoq4038272012{\listlevel\levelnfc0\levelfollow0\levelstartat1{\le veltext \'02\'00.}{\levelnumbers \'01}}{\listlevel\levelnfc0\levelfollow0\levelstartat1{\leveltext \'02\'01.}{\levelnumbers \'01}}{\listlevel\levelnfc0\levelfollow0\levelstartat1{\leveltext \'02\'02.}{\levelnumbers \'01}}{\ listlevel\levelnfc0\levelfollow0\levelstartat1{\leveltext \'02\'03.}{\levelnumbers \'01}}{\listlevel\ levelnfc0\levelfollow0\levelstartat1{\leveltext \'02\04.}{\levelnumbers \'01}}{\listlevel\levelnfc0\levelfollow0\levelstartat1{\leveltext \'02\05.}{\levelnumbers \'01}}{\listlevel\levelnfc0\levelfollo w0\levelstartat1{\leveltext \'02\'06.}{\levelnumbers \'01}}{\listlevel\levelnfc0\levelfollow0\levelstartat1{\leveltext \'02\07.}{\levelnumbers \'01}}{\listlevel\levelnfc0\levelfollow0\levelstartat1{\leveltext \'02\08.}{\levelnumbers \'01}}{\listname [id number]_1;}\[id number]}{\list\listtemp ssvomt10{\listlevel\levelnfc0\levelfollow0\levelstartat1{\leveltext \'02\'00.}{\levelnumbers \'01}}{\ listlevel\levelnfc0\levelfollow0\levelstartat1{\leveltext \'02\'.}{\levelnumbers \'01}}{\listlevel\ levelnfc0\levelfollow0\levelstartat1{\leveltext \'02\'02.}{\levelnumbers \'01}}{\listlevel\levelnfc0\levelfollow0\levelstartat1{\leveltext \'02\'03.}{\levelnumbers \'01}}{\listlevel\levelnfc0\levelfollo w0\levelstartat1{\leveltext \'02\04.}{\levelnumbers \'01}}{\listlevel\levelnfc0\levelfollow0\levelstartat1{\leveltext \'02\'05.}{\levelnumbers \'01}}{\listlevel\levelnfc0\levelfollow0\levelstartat1{\leveltext \'02\'06.}{\levelnumbers \'01}}{\listlevel\levelnfc0\levelfollow0\levelstartat1{\leveltext \' 02\07.}{\levelnumbers \'01}}{\listlevel\levelnfc0\levelfollow0\levelstartat1{\leveltext \'02\08.}{\ levelnumbers \'01}}{\listname [id number];}\[id number]}{\list\xggtknmrwxrsul34{\listlevel\ levelnfc0\levelfollow0\levelstartat1{\leveltext \'02\'00.}{\levelnumbers \'01}}{\listlevel\levelnfc0\levelfollow0\levelstartat1{\leveltext \'02\'.}{\levelnumbers \'01}}{\listlevel\levelnfc0\levelfollo w0\levelstartat1{\leveltext \'02\'02.}{\levelnumbers \'01}}{\listlevel\levelnfc0\levelfollow0\levelstartat1{\leveltext \'02\'03.}{\levelnumbers \'01}}{\listlevel\levelnfc0\levelfollow0\levelstartat1{\leveltext \'02\'04.}{\levelnumbers \'01}}{\listlevel\levelnfc0\levelfollow0\levelstartat1{\leveltext \' 02\'05.}{\levelnumbers \'01}}{\listlevel\levelnfc0\levelfollow0\levelstartat1{\leveltext \'02\'06.}{\ levelnumbers \'01}}{\listlevel\levelnfc0\levelfollow0\levelstartat1{\leveltext \'02\07.}{\levelnumbers \'01}}{\listlevel\levelnfc0\levelfollow0\levelstartat1{\leveltext \'02\'08.}{\levelnumbers \'01}}{\listname Akeq3950019087_4;}\[phone]}{\list\{\listlevel\levelnfc0 \levelfollow0\levelstartat1{\leveltext \'02\'00.}{\levelnumbers \'01}}{\listlevel\levelnfc0\levelfollow0\levelstartat1{\leveltext \'02\'01.}{\levelnumbers \'01}}{\listlevel\levelnfc0\levelfollow0\levelstartat1{\leveltext \'02\'02.}{\levelnumbers \'01}}{\listlevel\levelnfc0\levelfollow0\levelstartat1{\leveltext \' 02\'03.}{\levelnumbers \'01}}{\listlevel\levelnfc0\levelfollow0\levelstartat1{\leveltext \'02\'04.}{\ levelnumbers \'01}}{\listlevel\levelnfc0\levelfollow0\levelstartat1{\leveltext \'02\'05.}{\levelnumbers \'01}}{\listlevel\levelnfc0\levelfollow0\levelstartat1{\leveltext \'02\'06.}{\levelnumbers \'01}}{ \listlevel\levelnfc0\levelfollow0\levelstartat1{\leveltext \'02\'07.}{\levelnumbers \'01}}{\listlevel \levelnfc0\levelfollow0\levelstartat1{\leveltext \'02\'08.}{\levelnumbers \'01}}{\listname Vmqa864404 9328_1;}\[id number]}{\list\obkabhkpfjmuku16{\listlevel\levelnfc0\levelfoll ow0\levelstartat1{\leveltext \'02\'00.}{\levelnumbers \'01}}{\listlevel\levelnfc0\levelfollow0\levelstartat1{\leveltext \' 02\'01.}{\levelnumbers \'01}}{\listlevel\levelnfc0\levelfollow0\levelstartat1{\leveltext \'02\'02.}{\ levelnumbers \'01}}{\listlevel\levelnfc0\levelfollow0\levelstartat1{\leveltext \'02\'03.}{\levelnumbers \'01}}{\listlevel\levelnfc0\levelfollow0\levelstartat1{\leveltext \'02\'04.}{\levelnumbers \'01}}{ \listlevel\levelnfc0\levelfollow0\levelstartat1{\leveltext \'02\'05.}{\levelnumbers \'01}}{\listlevel \levelnfc0\levelfollow0\levelstartat1{\leveltext \'02\'06.}{\levelnumbers \'01}}{\listlevel\levelnfc0\levelfollow0\levelstartat1{\leveltext \'02\'07.}{\levelnumbers \'01}}{\listlevel\levelnfc0\levelfoll ow0\levelstartat1{\leveltext \'02\'08.}{\levelnumbers \'01}}{\listname [id number]_6;}\[phone] [phone]}{\list\hgendpujnqgpka20{\listlevel\levelnfc0\levelfollow0\levelstartat1{\l eveltext \'02\'00.}{\levelnumbers \'01}}{\listlevel\levelnfc0\levelfollow0\levelstartat1{\leveltext \'02\'01.}{\levelnumbers \'01}}{\listlevel\levelnfc0\levelfollow0\levelstartat1{\leveltext \'02\'02.}{\levelnumbers \'01}}{ \listlevel\levelnfc0\levelfollow0\levelstartat1{\leveltext \'02\'03.}{\levelnumbers \'01}}{\listlevel \levelnfc0\levelfollow0\levelstartat1{\leveltext \'02\'04.}{\levelnumbers \'01}}{\listlevel\levelnfc0\levelfollow0\levelstartat1{\leveltext \'02\'05.}{\levelnumbers \'01}}{\listlevel\levelnfc0\levelfoll ow0\levelstartat1{\leveltext \'02\'06.}{\levelnumbers \'01}}{\listlevel\levelnfc0\levelfollow0\levelstartat1{\leveltext \'02\'07.}{\levelnumbers \'01}}{\listlevel\levelnfc0\levelfollow0\levelstartat1{\leveltext \'02\'08.}{\levelnumbers \'01}}{\listname [id number];}\[id number]}}{\*\listoverr idetable{\listoverride\[id number]\listoverridecount9{\lfolevel\listoverrid eformat\listoverrides tartat{\listlevel\utrgybev38\levelfollow0\levelstartat1{\leveltext \'01\'b7}{\levelnumbers}\f1\fcs1\f 1\af1\fcs0\rtlch\f1\af1\ltrch}}{\lfolevel\listoverrideformat\listoverridestartat {\listlevel\aefykahl69\levelfollow0\levelstartat1{\leveltext \'01\'b7}{\levelnumbers}\f1\fcs1\f1\af1\fcs0\rtlch\f1\af1\ltr ch}}{\lfolevel\listoverrideformat\listoverridestartat{\listlevel\bgfffkug38\leve lfollow0\levelstartat1{\leveltext \'01\'b7}{\levelnumbers}\f1\fcs1\f1\af1\fcs0\rtlch\f1\af1\ltrch}}{\lfolevel\list override format\listoverridestartat{\listlevel\mmqaywhl16\levelfollow0\levelstartat1{\lev eltext \'\'b7}{\lev elnumbers}\f1\fcs1\f1\af1\fcs0\rtlch\f1\af1\ltrch}}{\lfolevel\listoverrideformat \listoverridestartat{\listlevel\dbtaaoco91\levelfollow0\levelstartat1{\leveltext \'01\'b7}{\levelnumbers}\f1\fcs1\f1\af1\f cs0\rtlch\f1\af1\ltrch}}{\lfolevel\listoverrideformat\listoverridestartat{\listl evel\frfinbhm54\levelfollow0\levelstartat1{\leveltext \'01\'b7}{\levelnumbers}\f1\fcs1\f1\af1\fcs0\rtlch\f1\af1\ltrch}}{\l folevel\listoverrideformat\listoverridestartat{\listlevel\libilyak01\levelfollow 0\levelstartat1{\leveltext \'01\'b7}{\levelnumbers}\f1\fcs1\f1\af1\fcs0\rtlch\f1\af1\ltrch}}{\lfolevel\list overrideformat\ listoverridestartat{\listlevel\uodhmist97\levelfollow0\levelstartat1{\leveltext \'\'b7}{\levelnumbe rs}\f1\fcs1\f1\af1\fcs0\rtlch\f1\af1\ltrch}}{\lfolevel\listoverrideformat\listov erridestartat{\listlevel\\levelfollow0\levelstartat1{\leveltext \'\'b7}{\levelnumbers}\f1\fcs1\f1\af1\fcs0\rtl ch\f1\af1\ltrch}}\ls1}{\listoverride\[id number]\listoverridecount9{\lfolev el\listoverrideformat \listoverridestartat{\listlevel\iglxjsvh36\levelfollow0\levelstartat1{\leveltext \'\'b7}{\levelnumb ers}\f1\fcs1\f1\af1\fcs0\rtlch\f1\af1\ltrch}}{\lfolevel\listoverrideformat\listo verridestartat{\listlevel\cgpsjazl31\levelfollow0\levelstartat1{\leveltext \'\'b7}{\levelnumbers}\f1\fcs1\f1\af1\fcs0\rt lch\f1\af1\ltrch}}{\lfolevel\listoverrideformat\listoverridestartat{\listlevel\l gxqnerz87\levelfollow0\levelstartat1{\leveltext \'\'b7}{\levelnumbers}\f1\fcs1\f1\af1\fcs0\rtlch\f1\af1\ltrch}}{\lfoleve l\listoverrideformat\listoverridestartat{\listlevel\ipnscqzw37\levelfollow0\leve lstartat1{\leveltext \'01\'b7}{\levelnumbers}\f1\fcs1\f1\af1\fcs0\rtlch\f1\af1\ltrch}}{\lfolevel\list overrideformat\listov erridestartat{\listlevel\ovddxfbq13\levelfollow0\levelstartat1{\leveltext \'01\'b7}{\levelnumbers}\f1 \fcs1\f1\af1\fcs0\rtlch\f1\af1\ltrch}}{\lfolevel\listoverrideformat\listoverride startat{\listlevel\bsveebwv28\levelfollow0\levelstartat1{\leveltext \'\'b7}{\levelnumbers}\f1\fcs1\f1\af1\fcs0\rtlch\f1\ af1\ltrch}}{\lfolevel\listoverrideformat\listoverridestartat{\listlevel\levelnfc 23\levelfollow0\levelstartat1{\leveltext \'01\'b7}{\levelnumbers}\f1\fcs1\f1\af1\fcs0\rtlch\f1\af1\ltrch}}{\lfolevel\list o verrideformat\listoverridestartat{\listlevel\gazaxjae90\levelfollow0\levelstarta t1{\leveltext \'01\'b 7}{\levelnumbers}\f1\fcs1\f1\af1\fcs0\rtlch\f1\af1\ltrch}}{\lfolevel\listoverrid eformat\listoverrides tartat{\listlevel\sndcwugy50\levelfollow0\levelstartat1{\leveltext \'01\'b7}{\levelnumbers}\f1\fcs1\f 1\af1\fcs0\rtlch\f1\af1\ltrch}}\ls2}{\listoverride\[id number]\listoverride count9{\lfolevel\list overrideformat\listoverridestartat{\listlevel\\levelfollow0\levelstart at1{\leveltext \'01\' b7}{\levelnumbers}\f1\fcs1\f1\af1\fcs0\rtlch\f1\af1\ltrch}}{\lfolevel\listoverri deformat\listoverride startat{\listlevel\zxmlleep98\levelfollow0\levelstartat1{\leveltext \'01\'b7}{\levelnumbers}\f1\fcs1\ f1\af1\fcs0\rtlch\f1\af1\ltrch}}{\lfolevel\listoverrideformat\listoverridestarta t{\listlevel\zndqcumw26\levelfollow0\levelstartat1{\leveltext \'\'b7}{\levelnumbers}\f1\fcs1\f1\af1\fcs0\rtlch\f1\af1\lt rch}}{\lfolevel\listoverrideformat\listoverridestartat{\listlevel\gumktqzx63\lev elfollow0\levelstartat1{\leveltext \'01\'b7}{\levelnumbers}\f1\fcs1\f1\af1\fcs0\rtlch\f1\af1\ltrch}}{\lfolevel\list overrid eformat\listoverridestartat{\listlevel\futkthqx42\levelfollow0\levelstartat1{\le veltext \'01\'b7}{\le velnumbers}\f1\fcs1\f1\af1\fcs0\rtlch\f1\af1\ltrch}}{\lfolevel\listoverrideforma t\listoverridestartat {\listlevel\gbesxysu92\levelfollow0\levelstartat1{\leveltext \'01\'b7}{\levelnumbers}\f1\fcs1\f1\af1\ fcs0\rtlch\f1\af1\ltrch}}{\lfolevel\listoverrideformat\listoverridestartat{\list level\gwybekvl83\levelfollow0\levelstartat1{\leveltext \'\'b7}{\levelnumbers}\f1\fcs1\f1\af1\fcs0\rtlch\f1\af1\ltrch}}{\ lfolevel\listoverrideformat\listoverridestartat{\listlevel\pogxfkub33\levelfollo w0\levelstartat1{\leveltext \'\'b7}{\levelnumbers}\f1\fcs1\f1\af1\fcs0\rtlch\f1\af1\ltrch}}{\lfolevel\list overrideformat \listoverridestartat{\listlevel\jnulovti18\levelfollow0\levelstartat1{\leveltext \'\'b7}{\levelnumb ers}\f1\fcs1\f1\af1\fcs0\rtlch\f1\af1\ltrch}}\ls3}}\gjfnbd34028\zzbowe56249\reyna l1800\algqf6729\margt 1440\jhvhw9261\zarrqtt366\aoqccba627\nogrowautofit\nygujg999\formshade\nofeature throttle1\fet4\aenddo c\aftnnrlc\pgbrdrhead\pgbrdrfoot\sectd\oapcuj60272\ckexwq02628\hxrguzqs2826\reyna ofss4852\rhdpyrxo4405 \gygzybjl7056\aotifge672\\sbkpage\pgncont\pgndec\plain\plain\f0\fs22\q l\plain\f0\fs22\plain \f7\fs22\par\trowd\apzskj27\trleft0\mnmg557\clvertalt\clbrdrt\brdrs\\brdr cf11\clbrdrb\brdrs\br drw15\\clbrdrl\brdrs\\wqfyrn41\clbrdrr\brdrs\\qahmcu32\clc bpat11\mjcdf2328\clve rtalt\clbrdrt\brdrs\\anajrv19\clbrdrb\brdrs\\\clbrdrl\brdr s\\liraol24\cl brdrr\brdrs\\zrlill46\rrazhzu35\sunus2717\pard\intbl\ssparaaux0\s0\ql\katherine in\f0\fs22\plain\f7\fs28\xvkr9273\hich\f7\dbch\f7\loch\f7\cf2\fs28\b\i SUBJECTIVE:\cf3\fs24\cell\pard\intbl\ssparaaux0\s0\ ri90\qr\plain\f0\fs22\plain\f7\fs24\nmpl5988\hich\f7\dbch\f7\loch\f7\fs24 \cf3\b\i\cell\intbl\row\pard\plain\f0\fs22\plain\f7\fs22 CC: Hue Medina is an 37 [...] see a dentist twice per year? yes\line\par\pard\pl ain\f0\fs22\plain\f7\fs22\rkly3763\hich\f7\dbch\f7\loch\f7\cf4\fs22 Other concerns to address:\par Irregular periods\par\cf1\b\par Today's PHQ-2 Score:\plain\f7\fs22 \ltrch 0 \plain\f7\fs22\line\par\ql\ plain\f0\fs22\plain\f7\fs22 Abuse: Current or Past(Physical, Sexual or Emotional)- NO\par Do you feel safe in your environment - YES\par\pard\plain\f0\fs22\plain\f7\fs22\par\trowd\trgaph0\trleft0\clvert alt\oyueu40362\pard\intbl\ssparaaux0\s0\ql\plain\f0\fs22\plain\f7\fs22\mwpa2417\ hich\f7\dbch\f7\loch\f7\cf1\fs22\protect{\field{\*\fldinst HYPERLINK name=LINKBEGIN [id number] 0 SOCX 1 0}{\fldrslt \'1c}}\cf6\fs18\b History\cf0\fs22\b0\cell\intbl\row\trowd\trgaph0\trleft0\clvertalt\ubtjwdw84\long pc24571\par d\intbl\ssparaaux0\s0\ql\plain\f0\fs22\plain\f7\fs18\dplc5133\hich\f7\dbch\f7\lo ch\f7\cf6\fs18\protect Substance Use Topics\cf0\fs22\cell\intbl\row\trowd\trgaph0\trleft0\clvertalt\jkerf467\clvertal t\long jr3635\clvertalt\vspql22018\pard\intbl\ssparaaux0\s0\qc\plain\f0\fs22\plain\f7\f s20\lqgx2515\hich\f7\dbch\f7\loch\f7\cf1\fs20\protect\u8226 \'95\cell\pard\intbl\ssparaaux0\s0\ql\plain\f0\fs22\plain\f7\f s22\uiwc4975\hich\f7\dbch\f7\loch\f7\cf1\fs22\protect Smoking status:\fs20\cell\pard\intbl\ssparaaux0 \s0\ql\plain\f0\fs22\plain\f7\fs22\pdzd2645\hich\f7\dbch\f7\loch\f7\cf1\fs22\pro tect Never Smoker \fs 20\cell\intbl\row\pard\intbl\ssparaaux0\s0\qc\plain\f0\fs22\plain\f7\fs20\lang10 33\hich\f7\dbch\f7\loch\f7\cf1\fs20\protect\u8226 \'95\cell\pard\intbl\ssparaaux0\s0\ql\plain\f0\fs22\plain\f7\fs22\lang10 33\hich\f7\dbch\f7\loch\f7\cf1\fs22\protect Smokeless tobacco:\fs20\cell\pard\intbl\ssparaaux0\s0\ql\ plain\f0\fs22\plain\f7\fs22\gptb6033\hich\f7\dbch\f7\loch\f7\cf1\fs22\protect Never Used\fs20\cell\in tbl\row\pard\intbl\ssparaaux0\s0\qc\plain\f0\fs22\plain\f7\fs20\yshz4046\hich\f7 \dbch\f7\loch\f7\cf1\fs20\protect\u8226 \'95\cell\pard\intbl\ssparaaux0\s0\ql\plain\f0\fs22\plain\f7\fs22\sacq4955\hich\ f7\dbch\f7\loch\f7\cf1\fs22\protect Alcohol Use:\fs20\cell\pard\intbl\ssparaaux0\s0\ql\plain\f0\fs22\pl ain\f7\fs22\xldm5046\hich\f7\dbch\f7\loch\f7\cf1\fs22\protect Yes\fs20\cell\intbl\row\trowd\trgaph0\t rleft0\clvertalt\qftzy763\clvertalt\\clvertalt\nguav030\clvertalt\cellx1 0044\pard\intbl\sspar aaux0\s0\qc\plain\f0\fs22\plain\f7\fs20\bmjj0744\hich\f7\dbch\f7\loch\f7\cf1\fs2 0\protect\cell\pard\i ntbl\ssparaaux0\s0\qc\plain\f0\fs22\plain\f7\fs20\gyyi8280\hich\f7\dbch\f7\loch\ f7\cf1\fs20\protect\c ell\pard\intbl\ssparaaux0\s0\qc\plain\f0\fs22\plain\f7\fs20\ovcf8714\hich\f7\dbc h \f7\loch\f7\cf1\fs20\protect\cell\pard\intbl\ssparaaux0\s0\ql\plain\f0\fs22\plai n\f7\fs20\wdjp5190\hich\f7\dbch\f7\loch\f7\cf1\fs20\i\protect very occ daquiri\i0\cell\intbl\row\pard\plain\f0\fs22\plain\ f7\fs22\jqdt9353\hich\f7\dbch\f7\loch\f7\cf1\fs22\protect{\field{\*\fldinst HYPERLINK name=LINKEND 074141 0 SOCX 1 0}{\fldrslt \'1c}}\plain\f7\fs22\par\cf3\protect{\field{\*\fldinst HYPERLINK name=LIS TBEGIN 045918 0 0}{\fldrslt \'1c}}\cf0 The patient does not drink >3 drinks per day nor >7 drinks per week.\cf3{\field{\*\fldinst HYPERLINK name=LISTEND 384467 0 0}{\fldrslt \'1c}}\plain\f7\fs22\p ar\par\ql\plain\f0\fs22\plain\f7\fs22 Last Mammo:No results found.\par\par Last lipid profile: \par\pard\plain\f0\fs22\plain\f7\fs22 Total Cholesterol: \par\trowd\trgaph0\trleft0\clvertalt\agmpz8534\par d\intbl\ssparaaux0\s0\ql\plain\f0\fs22\plain\f7\fs18\ygqs4790\hich\f7\dbch\f7\lo ch\f7\cf6\fs18\b Chol esterol\plain\f7\fs22\cell\intbl\row\trowd\trgaph0\trleft0\clvertalt\iotcldg28\c jlqm0390\clvertalt\cl cbpat12\osqsx1035\clvertalt\\ecshn2395\clvertalt\huqqwik30\bschm0612\pa rd\intbl\ssparaaux0\s 0\ql\plain\f0\fs22\plain\f7\fs18\kgbh0699\hich\f7\dbch\f7\loch\f7\cf6\fs18 Date\plain\f7\fs22\cell\pa rd\intbl\ssparaaux0\s0\ql\plain\f0\fs22\plain\f7\fs18\vfkv3445\hich\f7\dbch\f7\l och\f7\cf6\fs18 Value \plain\f7\fs22\cell\pard\intbl\ssparaaux0\s0\ql\plain\f0\fs22\plain\f7\fs18\lang 1033\hich\f7\dbch\f7\loch\f7\cf6\fs18 Range\plain\f7\fs22\cell\pard\intbl\ssparaaux0\s0\ql\plain\f0\fs22\plain\f7\fs18 \whsw3533\hich\f7\dbch\f7\loch\f7\cf6\fs18 Status\plain\f7\fs22\cell\intbl\row\trowd\trgaph0\trleft0\clve rtalt\dvjgz1149\clvertalt\bpjyr7720\clvertalt\ntkpd6554\clvertalt\dxjsv4545\pard \intbl\ssparaaux0\s0\ql\plain\f0\fs22\plain\f7\fs22 08/02/2011\cell\pard\intbl\ssparaaux0\s0\ql\plain\f0\fs22\plain\f7\fs20\ lcwv0120\hich\f7\dbch\f7\loch\f7\cf8\fs20 207*\cf0\cell\pard\intbl\ssparaaux0\s0\ql\plain\f0\fs22\plain\f7\fs22 0 - 200 mg/dL\fs20\cell\pard\intbl\ssparaaux0\s0\ql\plain\f0\fs22\plain\f7\fs22 Final\fs20 \cell\intbl\row\trowd\trgaph0\trleft0\clvertalt\twaew1683\pard\intbl\ssparaaux0\ s0\ql\plain\f0\fs22\plain\f7\fs20\jnjs1307\hich\f7\dbch\f7\loch\f7\cf1\fs20\i LDL Cholesterol is the primary guide to ther apy.\i0\cell\intbl\row\pard\intbl\ssparaaux0\s0\ql\plain\f0\fs22\plain\f7\fs20\l aes4372\hich\f7\dbch\f7\loch\f7\cf1\fs20\i The NCEP recommends further evaluation of: patients with cholesterol greater\i0 \cell\intbl\row\pard\intbl\ssparaaux0\s0\ql\plain\f0\fs22\plain\f7\fs20\gkev1150 \hich\f7\dbch\f7\loch\f7\cf1\fs20\i than 200 mg/dL if additional risk factors are present, cholesterol greater \i0\cell\in tbl\row\pard\intbl\ssparaaux0\s0\ql\plain\f0\fs22\plain\f7\fs20\ggaz0622\hich\f7 \dbch\f7\loch\f7\cf1\fs20\i than\i0\cell\intbl\row\pard\intbl\ssparaaux0\s0\ql\plain\f0\fs22\plain\f7\fs20\l wrg7122\hich\f7\dbch\f7\loch\f7\cf1\fs20\i 240 mg/dL, triglycerides greater than 150 mg/dL, or HDL less than 40 mg/ dL.\i0\cell\intbl\row\pard\ssparaaux0\s0\ql\plain\f0\fs22\plain\f7\fs22\par\pard \plain\f0\fs22\plain\f7\fs22 LDL Cholesterol: \par\trowd\trgaph0\trleft0\clvertalt\jtixp0500\pard\intbl\ssparaaux0\s0\ql\p racquel\f0\fs22\plain\f7\fs18\yyet7610\hich\f7\dbch\f7\loch\f7\cf6\fs18\b LDL Cholesterol Calculated\katherine in\f7\fs22\cell\intbl\row\trowd\trgaph0\trleft0\clvertalt\wirfewa28\lwkfw9980\cl vertalt\pharrkx55\long my7114\clvertalt\mwfejyj41\gctqt3104\clvertalt\yccmztk81\iuazr4152\pard\intbl\ss paraaux0\s0\ql\plain\ f0\fs22\plain\f7\fs18\guun8882\hich\f7\dbch\f7\loch\f7\cf6\fs18 Date\plain\f7\fs22\cell\pard\intbl\ss paraaux0\s0\ql\plain\f0\fs22\plain\f7\fs18\yhnn0005\hich\f7\dbch\f7\loch\f7\cf6\ fs18 Value\plain\f7\f s22\cell\pard\intbl\ssparaaux0\s0\ql\plain\f0\fs22\plain\f7\fs18\ldrb6837\hich\f 7\dbch\f7\loch\f7\cf6\fs18 Range\plain\f7\fs22\cell\pard\intbl\ssparaaux0\s0\ql\plain\f0\fs22\plain\f7\fs18 \qzog8994\hich\f7\dbch\f7\loch\f7\cf6\fs18 Status\plain\f7\fs22\cell\intbl\row\trowd\trgaph0\trleft0\clvertalt\cellx 2160\clvertalt\tynhi5755\clvertalt\tvgmw3687\clvertalt\pkdxr2133\pard\intbl\sspa raaux0\s0\ql\plain\f0\fs22\plain\f7\fs22 08/02/2011\cell\pard\intbl\ssparaaux0\s0\ql\plain\f0\fs22\plain\f7\fs20\vzqq3059\h ich\f7\dbch\f7\loch\f7\cf8\fs20 137*\cf0\cell\pard\intbl\ssparaaux0\s0\ql\plain\f0\fs22\plain\f7\fs220 - 129 mg/dL\fs20\cell\pard\intbl\ssparaaux0\s0\ql\plain\f0\fs22\plain\f7\fs22 Final\fs20\cell\intbl \row\trowd\trgaph0\trleft0\clvertalt\uhmev6558\pard\intbl\ssparaaux0\s0\ql\plain \f0\fs22\plain\f7\fs20\ikep0032\hich\f7\dbch\f7\loch\f7\cf1\fs20\i LDL Cholesterol is the primary guide to therapy: LDL-cholesterol goal in high\i0\cell\intbl\row\pard\intbl\ssparaaux0\s0\ql\plain\f0\fs22\plain\f7\fs20\l auf0108\hich\f7\dbch\f7\loch\f7\cf1\fs20\i risk patients is <100 mg/dL and in very high risk patients is <70 mg/dL.\i0\cell\intbl\row\pard\ssparaaux0\s0\ql\plain\f0\fs22\plain\f7\fs22\par\p casper\plain\f0\fs22\plain\f7\fs22 HDL Cholesterol: \par\trowd\trgaph0\trleft0\clvertalt\epppn1514\pard\intbl\sspa raaux0\s0\ql\plain\f0\fs22\plain\f7\fs18\bqgl4741\hich\f7\dbch\f7\loch\f7\cf6\fs 18\b HDL Cholesterol\ plain\f7\fs22\cell\intbl\row\trowd\trgaph0\trleft0\clvertalt\zukcluk65\dkjpm2241 \clvertalt\iqgkewm43\ dnvim9815\clvertalt\wiufhts07\jwdev8738\clvertalt\coammna46\rgbxy4238\pard\intbl \ssparaaux0\s0\ql\katherine in\f0\fs22\plain\f7\fs18\brex8780\hich\f7\dbch\f7\loch\f7\cf6\fs18 Date\plain\f7\fs22\cell\pard\intbl \ssparaaux0\s0\ql\plain\f0\fs22\plain\f7\fs18\jqaq9537\hich\f7\dbch\f7\loch\f7\c f6\fs18 Value\plain\f 7\fs22\cell\pard\intbl\ssparaaux0\s0\ql\plain\f0\fs22\plain\f7\fs18\fiuw8851\hic h\f7\dbch\f7\loch\f7\cf6\fs18 Range\plain\f7\fs22\cell\pard\intbl\ssparaaux0\s0\ql\plain\f0\fs22\plain\f7\fs18 \lsvw9549\hich\f7\dbch\f7\loch\f7\cf6\fs18 Status\plain\f7\fs22\cell\intbl\row\trowd\trgaph0\trleft0\clvertalt\ce yuz6069\clvertalt\dwaye0799\clvertalt\xfghc8662\clvertalt\vvjpk8618\pard\intbl\s sparaaux0\s0\ql\plain\f0\fs22\plain\f7\fs22 08/02/2011\cell\pard\intbl\ssparaaux0\s0\ql\plain\f0\fs22\plain\f7\fs20\aqtz1735 \hich\f7\dbch\f7\loch\f7\cf8\fs20 42*\cf0\cell\pard\intbl\ssparaaux0\s0\ql\plain\f0\fs22\plain\f7\fs22 50 - 110 mg/dL\fs20\cell\pard\intbl\ssparaaux0\s0\ql\plain\f0\fs22\plain\f7\fs22 Final\fs20\cell\in tbl\row\pard\ssparaaux0\s0\ql\plain\f0\fs22\plain\f7\fs22\par\pard\plain\f0\fs22 \plain\f7\fs22\par Reviewed orders with patient. Reviewed health maintenance and updated orders accordingly - Yes\par\parHistory of abnormal Pap smear: NO - age 30- 65 PAP every 3 years recommended\par All Histories reviewed and updated in Epic.\par\par\b ROS:\plain\f7\fs22\par\par\par\par\trowd\\trleft0\ctxz467\c lvertalt\clbrdrt\brdrs\\opziha54\clbrdrb\brdrs\\hgzhic60\clbrdrl\b rdrs\\kexlti29 \clbrdrr\brdrs\\yexaff16\gpitaqt68\ztjjb1612\clvertalt\clbrdrt\brdrs\brdr w15\\clbrdrb\ brdrs\\vdiejr05\clbrdrl\brdrs\\\clbrdrr\brdrs\\brdr cf11\lglmtxi46\cellx9 720\pard\intbl\ssparaaux0\s0\ql\plain\f0\fs22\plain\f7\fs28\chqv8555\hich\f7\dbc h\f7\loch\f7\cf2\fs28\b\i OBJECTIVE:\cf3\fs24\cell\pard\intbl\ssparaaux0\s0\ri90\qr\plain\f0\fs22\plain\f7 \fs24\wugx2153\hich\f7\dbch\f7\loch\f7\fs24 \cf3\b\i\cell\intbl\row\pard\ssparaaux0\s0\ql\plain\f0\fs22\plain\f7\fs22 \mrso2475\hich\f7\dbch\f7\loch\f7\cf1\fs22\protect{\field{\*\fldinst HYPERLINK name=LINKBEGIN 335221 1 VS 0}{\fldrslt \'1c}}There were no vitals taken for this visit.{\field{\*\fldinst HYPERLINK name=LINKEND 383205 1 VS 0}{\fldrslt \'1c}}\plain\f7\fs22 \protect{\field{\*\fldinst HYPERLINK name=LI NKBEGIN 524502 2 BMIHIS 0}{\fldrslt \'1c}}Estimated Body mass index is 33.81 kg/(m`2) as calculated from the following:\par Height as of 11/08/11: 4' 9.5(1.461 m).\par\pard\ssparaaux0\s0\ltrpar\ql\wi dctlpar\plain\f0\fs22\plain\f7\fs22\zuio4760\hich\f7\dbch\f7\loch\f7\cf1\fs22\pr otect Weight as of 03/05/12: 159 lb(72.122 kg).{\field{\*\fldinst HYPERLINK name=LINKEND 767592 2 BMIHIS 0}{\fldrslt \'1 c}}\plain\f7\fs22\par\pard\ssparaaux0\s0\ql\plain\f0\fs22\plain\f7\fs22\par\pard \plain\f0\fs22\plain\f7\fs22\par\cf3\sshlink\ul{\field{\*\fldinst HYPERLINK http://www.nhlbi.nih.gov/guidelines/cholesterol/index.htm}{\fldrslt ATP III Guidelines}}\plain\f7\fs22\par\cf3\sshlink\ul{\field{\*\fldinst HYPERLINK www.jacek.ac.uk\\frax}{\fldrslt FRAX Risk Assessment}}\plain\f7\fs22\par\cf3\sshlink\ul{\field{\*\fldinst HYPERLINK http://www.icsi.org/guidelines_and_more/gl_os_prot/preventive_health_maintenanc e/preventive_services_for_adults/preventive_services_for_adults__11.html}{\fldrs lt ICSI Preventive Gu idelines}}\plain\f7\fs22\par\ql\plain\f0\fs22\plain\f7\fs22\par\trowd\yxosta09\t rleft0\whug241\clvert alt\clbrdrt\brdrs\\gdyute09\clbrdrb\brdrs\\kqgela30\clbrdrl\brdrs\ \rdeqyl07\clbr drr\brdrs\\\invgqbt60\zsoli4009\clvertalt\clbrdrt\brdrs\\b \clbrdrb\brdrs \\raeikc65\clbrdrl\brdrs\\uhqzpe34\clbrdrr\brdrs\\yxxgtc59\ edvzuzf18\auepm3248\p casper\intbl\ssparaaux0\s0\ql\plain\f0\fs22\plain\f7\fs28\qqop2579\hich\f7\dbch\f7\ loch\f7\cf2\fs28\b\i ASSESSMENT/PLAN:\cf3\fs24\cell\pard\intbl\ssparaaux0\s0\ri90\qr\plain\f0\fs22\pl ain\f7\fs24\vgzy9427\hich\f7\dbch\f7\loch\f7\fs24 \cf3\b\i\cell\intbl\row\pard\ssparaaux0\s0\ql\plain\f0\fs22\plain\f7\fs2 2\par\pard\plain\f0\fs22\plain\f7\fs22\par\b Counseling:\par\ql\plain\f0\fs22\plain\f7\fs22\fmlv3856\ hich\f7\dbch\f7\loch\f7\cf3\fs22\sshlink\ul{\field{\*\fldinst HYPERLINK http://www.[place].gov/supertracker-tools/refdl-dhga-pxbil.html}{\fldrslt Dietary Guidelines for Americans, 2009}}\plain\f7\ fs22\par\cf3\sshlink\ul{\field{\*\fldinst HYPERLINK http://www.[place].gov/}{\fldrslt USDA's My Plate}}\cf1\b\sshlink0\ul0\par\pard\plain\f0\fs22\plain\f7\fs22\par\ql\plain\f0\ fs22\plain\f7\fs22\pa r\pard\plain\f0\fs22\plain\f7\fs22\hwly7201\hich\f7\dbch\f7\loch\f7\cf1\fs22\pro tect{\field{\*\fldinst HYPERLINK name=LINKBEGIN 661 3 TOBHXP 1 0}{\fldrslt \'1c}} reports that she has never smoked. She has never used smokeless tobacco.{\field{\*\fldinst HYPERLINK name=LINKEND 661 3 TOBHXP 1 0}{\fldrslt \1c}}\plain\f7\fs22\line\par\ql\plain\f0\fs22\plain\f7\fs16\wonf4853\hich\f7\db ch\f7\loch\f7\cf1\fs16\protect{\field{\*\fldinst HYPERLINK name=LINKBEGIN 219 4 BMIE 1 0}{\fldrslt \'1c}}Estimated Body mass index is 33.81 kg/(m`2) as calculated from the following:\par Height as of 11/08/11: 4' 9.5(1.461 m).\par\pard\plain\f0\fs22\plain\f7\fs16\uxvf1979\hich\f7\dbch\f7\loch\f7\cf1\fs 16\protect Weight as of 03/05/12: 159 lb(72.122 kg).{\field{\*\fldinst HYPERLINK name=LINKEND 219 4 BMIE 1 0}{\fldrslt \'1c}}\protect0 \plain\f7\fs22\par\par\par Chenita M Scott\par\ltrch [facility] [place] FOOD ORDER EXPEDITER\plain\f7\fs22\par\ql\plain\f0\fs22\plain\f7\fs22\mvdv6333\hich\f7\dbch\f7 \loch\f7\cf1\fs22\protect{\field{\*\fldinst HYPERLINK name=BLOCKBEGIN 51978 5 SFHPI }{\fldrslt \'1c}}HPI{\field{\*\fldinst HYPERLINK name=BLOCKEND 04727 5 SFHPI }{\fldrslt \1c}}\plain\f7\fs22\par\par\par\protect {\field{\*\fldinst HYPERLINK name=BLOCKBEGIN 147 6 REVIEWOFSYSTEMS }{\fldrslt \'1c}}ROS{\field{\*\fldinst HYPERLINK name=BLOCKEND 147 6 REVIEWOFSYSTEMS }{\fldrslt \1c}}\plain\f7\fs22\par\par\par\protect{\field{\*\fldinst HYPERLINK name=BLOCKBEGIN 148 7 PHYSICALEXAM }{\fldrslt \'1c}}Physical Exam{\fiel d{\*\fldinst HYPERLINK name=BLOCKEND 148 7 PHYSICALEXAM }{\fldrslt \'1c}}\plain\f7\fs22\par\par\ltrch\par\plain\f7\fs22\par\ltrch\v SMARTLIST_METADATA_BEGIN 724431 0=1:: SMARTLIST_METADATA_END WILDCARD_ METADATA_BEGIN WILDCARD_METADATA_END PLACEHOLDER_METADATA_BEGIN 0\{ETOH AUDIT:793887\} PLACEHOLDER_METADATA_END GRAMMAR_METADATA_BEGIN GRAMMAR_METADATA_END AUTOREFRESH_METADATA_BEGIN AUTOREFRESH_METADATA_END} Source: [facility] RWMCHXTRANSXRTFSYS Document Id: [id number] Phoebe Scott M.D. 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 [...] mother declined the exam ASSESSMENT: Satisfactory annual gynaecological oncologist exam Blood in stool PLAN: Dx: 1) [...] diet, regular exercise and periodic exams. Source: [facility] Document Id: [id number] Electronically signed by Conversion, [facility] Flexographic Press Plate Setter [id number] at 11/21/2016 12:49 PM CDT documented in this encounter Miscellaneous Notes Miscellaneous - Phoebe Scott M.D. - 08/02/2012 3:30 PM CST [id number] August 07, 2012 Hue Bellamy Carol [address] [facility] [phone] Your doctor has requested to have you return for a CBC, Lipid, Glucose, and TSH test at this time. You may call our office at [phone] in Obstetrics/Gynecology to schedule an appointment. Please ask to schedule a LAB APPOINTMENT Please disregard this notice if you already have had this lab repeated or have already made an appointment. Sincerely, Ashlee Ghotra Source: [facility] Document Id: [id number] Electronically signed by Conversion, [facility] Flexographic Press Plate Setter [id number] at 11/21/2016 12:49 PM CDT documented in this encounter Plan of Treatment Upcoming Encounters Date Type Specialty Care Team Description 06/22/2022 Appointment Laboratory Medicine Rusty Vee M.D. [address] [place] [phone] 06/22/2022 Diagnostic Pulmonary Medicine Rusty eVe M.D. [address] [place] [phone] 06/22/2022 Diagnostic Pulmonary Medicine Rusty Vee M.D. [address] [place] [phone] 06/22/2022 Appointment Radiology Rusty Vee M.D. [address] [place] [phone] 06/23/2022 Clinical Communication Admitting/Central Scheduling 06/28/2022 Appointment Pulmonary Medicine Rusty Vee M.D. [address] [place] [phone] 06/28/2022 Appointment Pulmonary Medicine Rusty Vee M.D. [address] [place] [address] [phone] documented as of this encounter Visit Diagnoses Not on filedocumented in this encounter
--- OUTSIDE RECORDS SUMMARY | 2022-05-25 21:14 | XMS_ITS | Encounter Summary ---
:1975 Author Organization [facility] Address [address] [place] [address] Care Team Providers Name Role Phone Unavailable Primary Care Provider Unavailable Encounter Details Date Type Department Care Team Description 08/21/2012 Hospital Encounter HX [facility] Juan [place].D. 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 - 08/21/2012 12:00 AM CST [id number] I personally called the patient's mother to discuss her preliminary TVUS results. Her mother, who grant BEAN, will ensure that the patient schedules a follow up ultrasound in two months. Her mother understands the importance of proper follow up. Source: [facility] RWHXTRANSXRTFSYS Document Id: [id number] documented in this encounter Plan of Treatment Upcoming Encounters Date Type Specialty Care Team Description 06/22/2022 Appointment Laboratory Medicine Rusty Vee M.D. [address] [place] [phone] 06/22/2022 Diagnostic Pulmonary Medicine Rusty Vee M.D. [address] [place] [phone] 06/22/2022 Diagnostic Pulmonary Medicine Rusty Vee M.D. [address] [place] [phone] 06/22/2022 Appointment Radiology Rusty Vee M.D. [address] [place] [phone] 06/23/2022 Clinical Communication Admitting/Central Scheduling 06/28/2022 Appointment Pulmonary Medicine Rusty Vee M.D. [address] [place] [phone] 06/28/2022 Appointment Pulmonary Medicine Rusty Vee M.D. [address] [place] [phone] documented as of this encounter Visit Diagnoses Not on filedocumented in this encounter
--- OUTSIDE RECORDS SUMMARY | 2022-05-25 21:14 | XMS_ITS | Encounter Summary ---
:1975 Author Organization [facility] Address [address] [place] [address] Care Team Providers Name Role Phone Unavailable Primary Care Provider Unavailable Encounter Details Date Type Department Care Team Description 10/29/2012 Hospital Encounter [facility] Gilma Mai M.D. 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 - 10/29/2012 2:45 PM CDT [id number] CLINIC ENCOUNTER This is a consultation requested by Dr. Garibay for followup of congenital heart disease. Ms. Medina is a 37-year-old woman with a history of Down syndrome. 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 They noted the defect was 1.5 cm and a VSD with ybgd-wg-okdnm shunt. She has had no followup in the last 12 years and mother felt that probably she is due for a cardiology evaluation. Ms. Medina really does quite well. She lives independently in [facility] in an assisted living situation. She is [...] lives independently in assisted living. Works at [employer]. MEDICATIONS: Include that of Coumadin and doxycycline. [...] and would get a congenital echo in [place]. At the same time she can be seen in the congenital heart clinic which I think would be appropriate. Gabby Croft/libia cc: Sridhar Garibay M.D. Source: [facility] RWHXTRANSXRTFSYS Document Id: [id number] documented in this encounter Plan of Treatment Upcoming Encounters Date Type Specialty Care Team Description 06/22/2022 Appointment Laboratory Medicine Rusty Vee M.D. [address] [place] [phone] 06/22/2022 Diagnostic Pulmonary Medicine Rusty Vee M.D. [address] [place] [phone] 06/22/2022 Diagnostic Pulmonary Medicine Rusty Vee M.D. [address] [place] [phone] 06/22/2022 Appointment Radiology Rusty Vee M.D. [address] [place] [phone] 06/23/2022 Clinical Communication Admitting/Central Scheduling 06/28/2022 Appointment Pulmonary Medicine Rusty Vee M.D. [address] [place] [phone] 06/28/2022 Appointment Pulmonary Medicine Rusty Vee M.D. [address] [place] [address] documented as of this encounter Visit Diagnoses Not on filedocumented in this encounter
--- OUTSIDE RECORDS SUMMARY | 2022-05-25 21:14 | XMS_ITS | Encounter Summary ---
:1975 Author Organization [facility] Address [address] [place] [address] Care Team Providers Name Role Phone Unavailable Primary Care Provider Unavailable Encounter Details Date Type Department Care Team Description 07/05/2012 Hospital Encounter [facility] ANTICOAG Provider, His torical Social History [...] Date Recorded Female 05/03/2022 7:07 PM BUSINESS PROJECT MANAGER documented as of this encounter Plan of Treatment Upcoming Encounters Date Type Specialty Care Team Description 06/22/2022 Appointment Laboratory Medicine Rusty Vee M.D. [address] [place] [phone] 06/22/2022 Diagnostic Pulmonary Medicine Rusty Vee M.D. [address] [place] [phone] 06/22/2022 Diagnostic Pulmonary Medicine Rusty Vee M.D. [address] [place] [phone] 06/22/2022 Appointment Radiology Rusty Vee M.D. [address] [place] [phone] 06/23/2022 Clinical Communication Admitting/Central Scheduling 06/28/2022 Appointment Pulmonary Medicine Rusty Vee M.D. [address] [place] [phone] 06/28/2022 Appointment Pulmonary Medicine Rusty Vee M.D. [address] [place] [phone] documented as of this encounter Procedures Procedure Name Priority Date/Time Associated Comments Diagnosis PROTHROMBIN TIME Routine 07/05/2012 10:06 Results for this (PT), P AM BUSINESS PROJECT MANAGER procedure are i n the results section. documented in this encounter Results PT (Prothrombin Time) with INR (07/05/2012 10:06 AM BUSINESS PROJECT MANAGER) P athologist Signature INR 3.17 [facility] Specimen (Source) Anatomical Collection Method Collection Time Re ceived Time Location / / Volume Laterality 07/05/2012 10:06 AM BUSINESS PROJECT MANAGER Historical Provider LAB BLOOD ADD-ON Performing Organization Address City/State/ZIP Code Phon e Number [facility] documented in this encounter Visit Diagnoses Not on filedocumented in this encounter
--- OUTSIDE RECORDS SUMMARY | 2022-05-25 21:14 | XMS_ITS | Encounter Summary ---
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 200 [place] [phone] 06/22/2022 Diagnostic Pulmonary Medicine Rusty Vee M.D. 200 [place] [phone] 06/22/2022 Diagnostic Pulmonary Medicine Rusty Vee M.D. [address] [place] [phone] 06/22/2022 Appointment Radiology Rusty Vee M.D. [address] [place] [phone] 06/23/2022 Clinical Communication Admitting/Central Scheduling 06/28/2022 Appointment Pulmonary Medicine Rusty Vee M.D. [address] [place] [phone] 06/28/2022 Appointment Pulmonary Medicine Rusty Vee M.D. 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 documented in this encounter Results PT (Prothrombin Time) with INR (05/22/2012 9:54 AM GLASS INSTALLER TECHNICIAN) P athologist Signature INR 2.76 [facility] Specimen (Source) Anatomical Collection Method Collection Time Re ceived Time Location / / Volume Laterality 05/22/2012 9:54 AM GLASS INSTALLER TECHNICIAN Historical Provider LAB BLOOD ADD-ON Performing Organization Address City/State/ZIP Code Phon e Number [facility] documented in this encounter Visit Diagnoses Not on filedocumented in this encounter
--- OUTSIDE RECORDS SUMMARY | 2022-05-25 21:14 | XMS_ITS | Encounter Summary ---
:1975 Author Organization [facility] Address [address] [place] [id number] Care Team Providers Name Role Phone Unavailable Primary Care Provider Unavailable Encounter Details Date Type Department Care Team Description 08/21/2012 Hospital Encounter HX [facility] Juan Lau M.D. 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 [address] [place] [phone] 06/22/2022 Diagnostic Pulmonary Medicine Rusty Vee M.D. [address] [place] [phone] 06/22/2022 Diagnostic Pulmonary Medicine Rusty Vee M.D. [address] [place] [phone] 06/22/2022 Appointment Radiology Rusty Vee M.D. [address] [place] [phone] 06/23/2022 Clinical Communication Admitting/Central Scheduling 06/28/2022 Appointment Pulmonary Medicine Rusty Vee M.D. [address] [place] [phone] 06/28/2022 Appointment Pulmonary Medicine Rusty Vee M.D. [address] [place] [phone] documented as of this encounter Visit Diagnoses Not on filedocumented in this encounter
--- OUTSIDE RECORDS SUMMARY | 2022-05-25 21:14 | XMS_ITS | Encounter Summary ---
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 200 [place] [phone] 06/22/2022 Diagnostic Pulmonary Medicine Rusty Vee M.D. 200 [place] [phone] 06/22/2022 Diagnostic Pulmonary Medicine Rusty Vee M.D. [address] [place] [phone] 06/22/2022 Appointment Radiology Rusty Vee M.D. [address] [place] [phone] 06/23/2022 Clinical Communication Admitting/Central Scheduling 06/28/2022 Appointment Pulmonary Medicine Rusty Vee M.D. [address] [place] [phone] 06/28/2022 Appointment Pulmonary Medicine Rusty Vee M.D. [address] [place] [phone] documented as of this encounter Procedures Procedure Name Priority Date/Time Associated Comments Diagnosis PROTHROMBIN TIME Routine 09/27/2012 11:12 Results for this (PT), P AM CDT procedure are i n the results section. documented in this encounter Results PT (Prothrombin Time) with INR (09/27/2012 11:12 AM CDT) P athologist Signature INR 2.07 [facility] Specimen (Source) Anatomical Collection Method Collection Time Re ceived Time Location / / Volume Laterality 09/27/2012 11:12 AM CDT Historical Provider LAB BLOOD ADD-ON Performing Organization Address City/State/ZIP Code Phon e Number [facility] documented in this encounter Visit Diagnoses Not on filedocumented in this encounter
--- OUTSIDE RECORDS SUMMARY | 2022-05-25 21:14 | XMS_ITS | Encounter Summary ---
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 200 [place] [phone] 06/22/2022 Diagnostic Pulmonary Medicine Rusty Vee M.D. 200 [place] [phone] 06/22/2022 Diagnostic Pulmonary Medicine Rusty Vee M.D. [address] [place] [phone] 06/22/2022 Appointment Radiology Rusty Vee M.D. [address] [place] [phone] 06/23/2022 Clinical Communication Admitting/Central Scheduling 06/28/2022 Appointment Pulmonary Medicine Rusty Vee M.D. [address] [place] [phone] 06/28/2022 Appointment Pulmonary Medicine Rusty Vee M.D. [address] [place] [phone] documented as of this encounter Procedures Procedure Name Priority Date/Time Associated Comments Diagnosis THYROID-STIMULATING Routine 08/09/2012 10:44 Resu lts for this HORMONE-SENSITIVE AM CORRECTIONAL TREATMENT SPECIALIST procedure are in (S-TSH) the results section. PROTHROMBIN TIME Routine 08/09/2012 10:18 Results for this (PT), P AM CORRECTIONAL TREATMENT SPECIALIST procedure are i n the results section. HX CHOL/HDL RATIO Routine 08/09/2012 10:17 Result s for this AM CORRECTIONAL TREATMENT SPECIALIST procedure are i n the results section. HX VLDL CHOL Routine 08/09/2012 10:17 Results for this AM CORRECTIONAL TREATMENT SPECIALIST procedure are i n the results section. LIPID PANEL, S Routine 08/09/2012 10:17 Results f or this AM CORRECTIONAL TREATMENT SPECIALIST procedure are i n the results section. TRIGLYCERIDES, S Routine 08/09/2012 10:17 Results for this AM CORRECTIONAL TREATMENT SPECIALIST procedure are i n the results section. CHOLESTEROL, HDL, S Routine 08/09/2012 10:17 Resu lts for this AM CORRECTIONAL TREATMENT SPECIALIST procedure are i n the results section. GLUCOSE, RANDOM, S/P Routine 08/09/2012 10:17 Res ults for this AM CORRECTIONAL TREATMENT SPECIALIST procedure are i n the results section. CHOLESTEROL, TOTAL, S Routine 08/09/2012 10:17 Re sults for this AM CORRECTIONAL TREATMENT SPECIALIST procedure are i n the results section. RBC SYSMEX Routine 08/09/2012 10:07 Results for this AM CORRECTIONAL TREATMENT SPECIALIST procedure are i n the results section. RBC SYSMEX Routine 08/09/2012 10:07 Results for this AM CORRECTIONAL TREATMENT SPECIALIST procedure are i n the results section. RBC SYSMEX Routine 08/09/2012 10:07 Results for this AM CORRECTIONAL TREATMENT SPECIALIST procedure are i n the results section. RBC SYSMEX Routine 08/09/2012 10:07 Results for this AM CORRECTIONAL TREATMENT SPECIALIST procedure are i n the results section. AUTOMATED Routine 08/09/2012 10:07 Results for this DIFFERENTIAL, B AM CORRECTIONAL TREATMENT SPECIALIST procedure ar e in the results section. AUTOMATED Routine 08/09/2012 10:07 Results for this DIFFERENTIAL, B AM CORRECTIONAL TREATMENT SPECIALIST procedure ar e in the results section. AUTOMATED Routine 08/09/2012 10:07 Results for this DIFFERENTIAL, B AM CORRECTIONAL TREATMENT SPECIALIST procedure ar e in the results section. AUTOMATED Routine 08/09/2012 10:07 Results for this DIFFERENTIAL, B AM CORRECTIONAL TREATMENT SPECIALIST procedure ar e in the results section. AUTOMATED Routine 08/09/2012 10:07 Results for this DIFFERENTIAL, B AM CORRECTIONAL TREATMENT SPECIALIST procedure ar e in the results section. AUTOMATED Routine 08/09/2012 10:07 Results for this DIFFERENTIAL, B AM CORRECTIONAL TREATMENT SPECIALIST procedure ar e in the results section. AUTOMATED Routine 08/09/2012 10:07 Results for this DIFFERENTIAL, B AM CORRECTIONAL TREATMENT SPECIALIST procedure ar e in the results section. AUTOMATED Routine 08/09/2012 10:07 Results for this DIFFERENTIAL, B AM CORRECTIONAL TREATMENT SPECIALIST procedure ar e in the results section. AUTOMATED Routine 08/09/2012 10:07 Results for this DIFFERENTIAL, B AM CORRECTIONAL TREATMENT SPECIALIST procedure ar e in the results section. AUTOMATED Routine 08/09/2012 10:07 Results for this DIFFERENTIAL, B AM CORRECTIONAL TREATMENT SPECIALIST procedure ar e in the results section. AUTOMATED Routine 08/09/2012 10:07 Results for this DIFFERENTIAL, B AM CORRECTIONAL TREATMENT SPECIALIST procedure ar e in the results section. AUTOMATED Routine 08/09/2012 10:07 Results for this DIFFERENTIAL, B AM CORRECTIONAL TREATMENT SPECIALIST procedure ar e in the results section. AUTOMATED Routine 08/09/2012 10:07 Results for this DIFFERENTIAL, B AM CORRECTIONAL TREATMENT SPECIALIST procedure ar e in the results section. PLATELETS, B Routine 08/09/2012 10:07 Results for this AM CORRECTIONAL TREATMENT SPECIALIST procedure are i n the results section. CBC WITH Routine 08/09/2012 10:07 Results for this DIFFERENTIAL, B AM CORRECTIONAL TREATMENT SPECIALIST procedure ar e in the results section. CBC WITH Routine 08/09/2012 10:07 Results for this DIFFERENTIAL, B AM CORRECTIONAL TREATMENT SPECIALIST procedure ar e in the results section. HEMOGLOBIN, B Routine 08/09/2012 10:07 Results fo r this AM CORRECTIONAL TREATMENT SPECIALIST procedure are i n the results section. HEMATOCRIT, B Routine 08/09/2012 10:07 Results fo r this AM CORRECTIONAL TREATMENT SPECIALIST procedure are i n the results section. documented in this encounter Results S-TSH (Thyroid-Stimulating Hormone - Sensitive) (08/09/2012 10:44 AM CORRECTIONAL TREATMENT SPECIALIST) P athologist Signature TSH 6.58 MUNITL [facility] (Thyrotropin) [facility] Specimen (Source) Anatomical Collection Method Collection Time Re ceived Time Location / / Volume Laterality 08/09/2012 10:44 AM CORRECTIONAL TREATMENT SPECIALIST Historical Provider LAB BLOOD ADD-ON Performing Organization Address City/State/ZIP Code Phon e Number [facility] PT (Prothrombin Time) with INR (08/09/2012 10:18 AM CORRECTIONAL TREATMENT SPECIALIST) P athologist Signature INR 2.19 [facility] Specimen (Source) Anatomical Collection Method Collection Time Re ceived Time Location / / Volume Laterality 08/09/2012 10:18 AM CORRECTIONAL TREATMENT SPECIALIST Historical Provider LAB BLOOD ADD-ON Performing Organization Address City/State/ZIP Code Phon e Number [facility] Glucose, Random (08/09/2012 10:17 AM CORRECTIONAL TREATMENT SPECIALIST) P athologist Signature Glucose 88 MGDL [facility] Specimen (Source) Anatomical Collection Method Collection Time Re ceived Time Location / / Volume Laterality 08/09/2012 10:17 AM CORRECTIONAL TREATMENT SPECIALIST Narrative [facility] - 09/06/19 14 8:12 PM CDT Fasting specimen Historical Provider LAB BLOOD TROPONIN Performing Organization Address City/State/ZIP Code Phon e Number [facility] HX CHOL/HDL RATIO (08/09/2012 10:17 AM CORRECTIONAL TREATMENT SPECIALIST) P athologist Signature Total 4.7 [facility] Cholesterol/HDL [facility] Specimen (Source) Anatomical Collection Method Collection Time Re ceived Time Location / / Volume Laterality 08/09/2012 10:17 AM CORRECTIONAL TREATMENT SPECIALIST Historical Provider LAB HISTORICAL ORDERS Performing Organization Address City/State/ZIP Code Phon e Number [facility] HX VLDL CHOL (08/09/2012 10:17 AM CORRECTIONAL TREATMENT SPECIALIST) P athologist Signature VLDL cholesterol 30 MGDL [facility] Specimen (Source) Anatomical Collection Method Collection Time Re ceived Time Location / / Volume Laterality 08/09/2012 10:17 AM CORRECTIONAL TREATMENT SPECIALIST Historical Provider LAB HISTORICAL ORDERS Performing Organization Address City/State/ZIP Code Phon e Number [facility] Lipid Panel (08/09/2012 10:17 AM CORRECTIONAL TREATMENT SPECIALIST) P athologist Signature Calculated LDL 141 MGDL [facility] Specimen (Source) Anatomical Collection Method Collection Time Re ceived Time Location / / Volume Laterality 08/09/2012 10:17 AM CORRECTIONAL TREATMENT SPECIALIST Narrative [facility] - 09/06/19 14 8:12 PM CDT LDL Cholesterol is the primary guide to therapy: LDL-cholesterol goal in high risk patients is <100 mg/dL and in very high risk patients is <70 mg/dL. Historical Provider LAB BLOOD ADD-ON Performing Organization Address City/State/ZIP Code Phon e Number [facility] Cholesterol, High-Density Lipoprotein (HDL) (08/09/2012 10:17 AM CORRECTIONAL TREATMENT SPECIALIST) P athologist Signature HX HDL 46 MGDL [facility] Specimen (Source) Anatomical Collection Method Collection Time Re ceived Time Location / / Volume Laterality 08/09/2012 10:17 AM CORRECTIONAL TREATMENT SPECIALIST Historical Provider LAB BLOOD ADD-ON Performing Organization Address City/State/ZIP Code Phon e Number [facility] Triglycerides (08/09/2012 10:17 AM CORRECTIONAL TREATMENT SPECIALIST) P athologist Signature Triglycerides 149 MGDL [facility] Specimen (Source) Anatomical Collection Method Collection Time Re ceived Time Location / / Volume Laterality 08/09/2012 10:17 AM CORRECTIONAL TREATMENT SPECIALIST Narrative [facility] - 09/06/19 14 8:12 PM CDT Fasting specimen Historical Provider LAB BLOOD ADD-ON Performing Organization Address City/State/ZIP Code Phon e Number [facility] Cholesterol, Total (08/09/2012 10:17 AM CORRECTIONAL TREATMENT SPECIALIST) P athologist Signature Cholestanol 217 MGDL [facility] Specimen (Source) Anatomical Collection Method Collection Time Re ceived Time Location / / Volume Laterality 08/09/2012 10:17 AM CORRECTIONAL TREATMENT SPECIALIST Narrative [facility] - 09/06/19 14 8:12 [...] Code Phon e Number [facility] Automated Differential (08/09/2012 10:07 AM CORRECTIONAL TREATMENT SPECIALIST) P athologist Signature HXGranulo 0.0 109L [facility] Specimen (Source) Anatomical Collection Method Collection Time Re ceived Time Location / / Volume Laterality 08/09/2012 10:07 AM CORRECTIONAL TREATMENT SPECIALIST Historical Provider LAB BLOOD ADD-ON Performing Organization Address City/State/ZIP Code Phon e Number [facility] Automated Differential (08/09/2012 10:07 AM CORRECTIONAL TREATMENT SPECIALIST) P athologist Signature Absolute 0.0 109L [facility] Specimen (Source) Anatomical Collection Method Collection Time Re ceived Time Location / / Volume Laterality 08/09/2012 10:07 AM CORRECTIONAL TREATMENT SPECIALIST Historical Provider LAB BLOOD ADD-ON Performing Organization Address City/State/ZIP Code Phon e Number [facility] Automated Differential (08/09/2012 10:07 AM CORRECTIONAL TREATMENT SPECIALIST) P athologist Signature Eosinophils 0.0 109L [facility] Specimen (Source) Anatomical Collection Method Collection Time Re ceived Time Location / / Volume Laterality 08/09/2012 10:07 AM CORRECTIONAL TREATMENT SPECIALIST Historical Provider LAB BLOOD ADD-ON Performing Organization Address City/State/ZIP Code Phon e Number [facility] Automated Differential (08/09/2012 10:07 AM CORRECTIONAL TREATMENT SPECIALIST) P athologist Signature Monocytes 0.3 109L [facility] Specimen (Source) Anatomical Collection Method Collection Time Re ceived Time Location / / Volume Laterality 08/09/2012 10:07 AM CORRECTIONAL TREATMENT SPECIALIST Historical Provider LAB BLOOD ADD-ON Performing Organization Address City/State/ZIP Code Phon e Number [facility] Automated Differential (08/09/2012 10:07 AM CORRECTIONAL TREATMENT SPECIALIST) P athologist Signature Lymphocytes 0.9 109L [facility] Specimen (Source) Anatomical Collection Method Collection Time Re ceived Time Location / / Volume Laterality 08/09/2012 10:07 AM CORRECTIONAL TREATMENT SPECIALIST Historical Provider LAB BLOOD ADD-ON Performing Organization Address City/State/ZIP Code Phon e Number [facility] Automated Differential (08/09/2012 10:07 AM CORRECTIONAL TREATMENT SPECIALIST) P athologist Signature Absolute 2.4 109L [facility] Specimen (Source) Anatomical Collection Method Collection Time Re ceived Time Location / / Volume Laterality 08/09/2012 10:07 AM CORRECTIONAL TREATMENT SPECIALIST Historical Provider LAB BLOOD ADD-ON Performing Organization Address City/State/ZIP Code Phon e Number [facility] Automated Differential (08/09/2012 10:07 AM CORRECTIONAL TREATMENT SPECIALIST) P athologist Signature Immature 0.3 [facility] Granulocytes % [facility] Specimen (Source) Anatomical Collection Method Collection Time Re ceived Time Location / / Volume Laterality 08/09/2012 10:07 AM CORRECTIONAL TREATMENT SPECIALIST Historical Provider LAB BLOOD ADD-ON Performing Organization Address City/State/ZIP Code Phon e Number [facility] Automated Differential (08/09/2012 10:07 AM CORRECTIONAL TREATMENT SPECIALIST) P athologist Signature HX Baso % 0.5 [facility] Specimen (Source) Anatomical Collection Method Collection Time Re ceived Time Location / / Volume Laterality 08/09/2012 10:07 AM CORRECTIONAL TREATMENT SPECIALIST Historical Provider LAB BLOOD ADD-ON Performing Organization Address City/State/ZIP Code Phon e Number [facility] Automated Differential (08/09/2012 10:07 AM CORRECTIONAL TREATMENT SPECIALIST) P athologist Signature HX Eos % 0.8 [facility] Specimen (Source) Anatomical Collection Method Collection Time Re ceived Time Location / / Volume Laterality 08/09/2012 10:07 AM CORRECTIONAL TREATMENT SPECIALIST Historical Provider LAB BLOOD ADD-ON Performing Organization Address City/State/ZIP Code Phon e Number [facility] Automated Differential (08/09/2012 10:07 AM CORRECTIONAL TREATMENT SPECIALIST) P athologist Signature HX [place] % 9.1 [facility] Specimen (Source) Anatomical Collection Method Collection Time Re ceived Time Location / / Volume Laterality 08/09/2012 10:07 AM CORRECTIONAL TREATMENT SPECIALIST Historical Provider LAB BLOOD ADD-ON Performing Organization Address City/State/ZIP Code Phon e Number [facility] Automated Differential (08/09/2012 10:07 AM CORRECTIONAL TREATMENT SPECIALIST) P athologist Signature Lymphocytes 25.3 [facility] Specimen (Source) Anatomical Collection Method Collection Time Re ceived Time Location / / Volume Laterality 08/09/2012 10:07 AM CORRECTIONAL TREATMENT SPECIALIST Historical Provider LAB BLOOD ADD-ON Performing Organization Address City/State/ZIP Code Phon e Number [facility] Automated Differential (08/09/2012 10:07 AM CORRECTIONAL TREATMENT SPECIALIST) P athologist Signature Neutro % 64.0 [facility] Specimen (Source) Anatomical Collection Method Collection Time Re ceived Time Location / / Volume Laterality 08/09/2012 10:07 AM CORRECTIONAL TREATMENT SPECIALIST Historical Provider LAB BLOOD ADD-ON Performing Organization Address City/State/ZIP Code Phon e Number [facility] CBC with Differential (08/09/2012 10:07 AM CORRECTIONAL TREATMENT SPECIALIST) Patholo gist Method Time Signature HXDifferentia Automated [facility] l? Method [facility] Specimen (Source) Anatomical Collection Method Collection Time Re ceived Time Location / / Volume Laterality 08/09/2012 10:07 AM CORRECTIONAL TREATMENT SPECIALIST Historical Provider LAB BLOOD ADD-ON Performing Organization Address City/State/ZIP Code Phon e Number [facility] Platelet Count (08/09/2012 10:07 AM CORRECTIONAL TREATMENT SPECIALIST) P athologist Signature Platelet Count 161 109L [facility] Specimen (Source) Anatomical Collection Method Collection Time Re ceived Time Location / / Volume Laterality 08/09/2012 10:07 AM CORRECTIONAL TREATMENT SPECIALIST Historical Provider LAB BLOOD ADD-ON Performing Organization Address City/State/ZIP Code Phon e Number [facility] RBC SYSMEX (08/09/2012 10:07 AM CORRECTIONAL TREATMENT SPECIALIST) athologist Signature HX RDW 13.6 [facility] Specimen (Source) Anatomical Collection Method Collection Time Re ceived Time Location / / Volume Laterality 08/09/2012 10:07 AM CORRECTIONAL TREATMENT SPECIALIST Historical Provider LAB URINE ORDERABLES Performing Organization Address City/State/ZIP Code Phon e Number [facility] RBC SYSMEX (08/09/2012 10:07 AM CORRECTIONAL TREATMENT SPECIALIST) P athologist Signature MCHC 33.3 GMDL [facility] Specimen (Source) Anatomical Collection Method Collection Time Re ceived Time Location / / Volume Laterality 08/09/2012 10:07 AM CORRECTIONAL TREATMENT SPECIALIST Historical Provider LAB URINE ORDERABLES Performing Organization Address City/State/ZIP Code Phon e Number [facility] RBC SYSMEX (08/09/2012 10:07 AM CORRECTIONAL TREATMENT SPECIALIST) P athologist Signature MCH 33.5 PG [facility] Specimen (Source) Anatomical Collection Method Collection Time Re ceived Time Location / / Volume Laterality 08/09/2012 10:07 AM CORRECTIONAL TREATMENT SPECIALIST Historical Provider LAB URINE ORDERABLES Performing Organization Address City/State/ZIP Code Phon e Number [facility] Automated Differential (08/09/2012 10:07 AM CORRECTIONAL TREATMENT SPECIALIST) athologist Signature MCV 101 FL [facility] Specimen (Source) Anatomical Collection Method Collection Time Re ceived Time Location / / Volume Laterality 08/09/2012 10:07 AM CORRECTIONAL TREATMENT SPECIALIST Historical Provider LAB BLOOD ADD-ON Performing Organization Address City/State/ZIP Code Phon e Number [facility] Hematocrit (08/09/2012 10:07 AM CORRECTIONAL TREATMENT SPECIALIST) athologist Signature Hematocrit 41.7 [facility] Specimen (Source) Anatomical Collection Method Collection Time Re ceived Time Location / / Volume Laterality 08/09/2012 10:07 AM CORRECTIONAL TREATMENT SPECIALIST Historical Provider LAB BLOOD ADD-ON Performing Organization Address City/State/ZIP Code Phon e Number [facility] Hemoglobin (08/09/2012 10:07 AM CORRECTIONAL TREATMENT SPECIALIST) athologist Signature Hemoglobin 13.9 GMDL [facility] Specimen (Source) Anatomical Collection Method Collection Time Re ceived Time Location / / Volume Laterality 08/09/2012 10:07 AM CORRECTIONAL TREATMENT SPECIALIST Historical Provider LAB BLOOD ADD-ON Performing Organization Address City/State/ZIP Code Phon e Number [facility] RBC SYSMEX (08/09/2012 10:07 AM CORRECTIONAL TREATMENT SPECIALIST) P athologist Signature Erythrocytes 4.15 X10 [facility] Specimen (Source) Anatomical Collection Method Collection Time Re ceived Time Location / / Volume Laterality 08/09/2012 10:07 AM CORRECTIONAL TREATMENT SPECIALIST Historical Provider LAB URINE ORDERABLES Performing Organization Address City/[facility]/ZIP Code Phon e Number [facility] CBC with Differential (08/09/2012 10:07 AM CORRECTIONAL TREATMENT SPECIALIST) P athologist Signature Leukocytes 3.7 109L [facility] Specimen (Source) Anatomical Collection Method Collection Time Re ceived Time Location / / Volume Laterality 08/09/2012 10:07 AM CORRECTIONAL TREATMENT SPECIALIST Historical Provider LAB BLOOD ADD-ON Performing Organization Address City/State/ZIP Code Phon e Number [facility] documented in this encounter Visit Diagnoses Not on filedocumented in this encounter
--- OUTSIDE RECORDS SUMMARY | 2022-05-25 21:14 | XMS_ITS | Encounter Summary ---
:1975 Author Organization [facility] Address [address] [place] [address] Care Team Providers Name Role Phone Unavailable Primary Care Provider Unavailable Encounter Details Date Type Department Care Team Description 09/24/2012 Hospital Encounter [facility] Marsha Garibay M.D. 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 - 09/24/2012 3:30 PM CDT [id number] This office note has been dictated. Source: [facility] RWHXTRANSXRTFSYS Document Id: [id number] Electronically signed by Conversion, [facility] Web Merchant [id number] at 11/21/2016 8:58 PM PATRICIAT Sridhar Garibay M.D. - 09/24/2012 3:30 PM CDT [id number] CLINIC ENCOUNTER SUBJECTIVE: Patient presents today with rectal bleeding. Apparently she had complained of abnormal vaginal bleeding and had seen the jack tamp operator and apparently it was more rectal bleeding. [...] an evaluation as well. Sridhar Garibay M.D. RADAMES/st/law cc: Source: [facility] Document Id: [id number] documented in this encounter Plan of Treatment Upcoming Encounters Date Type Specialty Care Team Description 06/22/2022 Appointment Laboratory Medicine Rusty Vee M.D. [address] [place] [phone] 06/22/2022 Diagnostic Pulmonary Medicine Rusty Vee M.D. [address] [place] [phone] 06/22/2022 Diagnostic Pulmonary Medicine Rusty Vee M.D. [address] [place] [phone] 06/22/2022 Appointment Radiology Rusty Vee M.D. [address] [place] [phone] 06/23/2022 Clinical Communication Admitting/Central Scheduling 06/28/2022 Appointment Pulmonary Medicine Rusty Vee M.D. [address] [place] [phone] 06/28/2022 Appointment Pulmonary Rusty Mattson M.D. [address] [place] [phone] documented as of this encounter Visit Diagnoses Not on filedocumented in this encounter
--- OUTSIDE RECORDS SUMMARY | 2022-05-25 21:14 | XMS_ITS | Encounter Summary ---
:1975 Author Organization [facility] Address [address] [place] [address] Care Team Providers Name Role Phone Unavailable Primary Care Provider Unavailable Encounter Details Date Type Department Care Team Description 07/19/2012 Hospital Encounter HX [facility] Juan Lau M.D. 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 - 07/19/2012 12:00 AM CST [id number] Hue Bellamy Carol [address] [facility] [phone] Date of : 1975 July 19, 2012 Thank you for choosing [facility] in [place] for your care. We would like to [...] the surgery date and the [facility] where you had the surgery. Surgery Surgery Date Health Care Organization Medications CROSS OUT medications you are not taking WRITE IN and new prescriptions, [id number], and herbal medications you are taking. Please [...] you open to a referral to the [place] [facility] (free) Family History Please CROSS OUT [...] Abdomen 8. Vision 9. Hearing 10.Dexascan Respectfully, [facility] in [place] Questions? Call us at and we are happy to help! Please return this information at least 1 week before your appointment using the enclosed postage-paid envelope or use our secure fax at Source: [facility] MESSERHXTRANSXRTFSYS Document Id: [id number] documented in this encounter Plan of Treatment Upcoming Encounters Date Type Specialty Care Team Description 06/22/2022 Appointment Laboratory Medicine Rusty Vee M.D. 200 [place] [phone] 06/22/2022 Diagnostic Pulmonary Medicine Rusty Vee M.D. 200 [place] [phone] 06/22/2022 Diagnostic Pulmonary Medicine Rusty Vee M.D. 200 [place] [phone] 06/22/2022 Appointment Radiology Rusty Vee M.D. [address] [place] [address] 06/23/2022 Clinical Communication Admitting/Central Scheduling 06/28/2022 Appointment Pulmonary Medicine Rusty Vee M.D. [address] [place] [phone] 06/28/2022 Appointment Pulmonary Medicine Rusty Vee M.D. [address] [place] [phone] documented as of this encounter Visit Diagnoses Not on filedocumented in this encounter
--- OUTSIDE RECORDS SUMMARY | 2022-05-25 21:14 | XMS_ITS | Encounter Summary ---
:1975 Author Organization [facility] Address [address] [place] [address] Care Team Providers Name Role Phone Unavailable Primary Care Provider Unavailable Encounter Details Date Type Department Care Team Description 08/29/2012 Hospital Encounter [facility] Marsha Garibay M.D. 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 [facility] Document Id: [id number] Telephone Encounter - Antonia Mcclellan - 08/29/2012 12:00 AM CST [id number] Unable to approve medication per the RN [...] LDL 141 08/09/2012 INR 2.28 08/30/2012 Source: [facility] Document Id: [id number] Electronically signed by Conversion, [facility] Warp Tying Machine Tender [id number] at 11/21/2016 3:43 PM CDT documented in this encounter Plan of Treatment Upcoming Encounters Date Type Specialty Care Team Description 06/22/2022 Appointment Laboratory Medicine Rusty Vee M.D. [address] [place] [phone] 06/22/2022 Diagnostic Pulmonary Medicine Rusty Vee M.D. [address] [place] [phone] 06/22/2022 Diagnostic Pulmonary Medicine Rusty Vee M.D. [address] [place] [phone] 06/22/2022 Appointment Radiology Rusty Vee M.D. [address] [place] [phone] 06/23/2022 Clinical Communication Admitting/Central Scheduling 06/28/2022 Appointment Pulmonary Medicine Rusty Vee M.D. [address] [place] [phone] 06/28/2022 Appointment Pulmonary Medicine Rusty Vee M.D. [address] [place] [phone] documented as of this encounter Visit Diagnoses Not on filedocumented in this encounter
--- OUTSIDE RECORDS SUMMARY | 2022-05-25 21:14 | XMS_ITS | Encounter Summary ---
:1975 Author Organization [facility] Address [address] [place] [address] Care Team Providers Name Role Phone Unavailable Primary Care Provider Unavailable Encounter Details Date Type Department Care Team Description 08/20/2012 Hospital Encounter HX NO MAPPING Yunier Scott [place].D. [address] [place] [address] (Wo rk) Social History Tobacco [...] or relatives? How often do you attend judaism or More than 4 times per year 05/04/2022 oriental orthodox services? 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 [address] [place] [address] 06/22/2022 Diagnostic Pulmonary Medicine Rusty Vee M.D. [address] [place] [phone] 06/22/2022 Diagnostic Pulmonary Medicine Rusty Vee M.D. [address] [place] [phone] 06/22/2022 Appointment Radiology Rusty Vee M.D. [address] [place] [phone] 06/23/2022 Clinical Communication Admitting/Central Scheduling 06/28/2022 Appointment Pulmonary Medicine Rusty Vee M.D. [address] [place] [phone] 06/28/2022 Appointment Pulmonary Medicine Rusty Vee M.D. [address] [place] [phone] documented as of this encounter Visit Diagnoses Not on filedocumented in this encounter
--- OUTSIDE RECORDS SUMMARY | 2022-05-25 21:14 | XMS_ITS | Encounter Summary ---
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 200 [place] [phone] 06/22/2022 Diagnostic Pulmonary Medicine Rusty Vee M.D. 200 [place] [phone] 06/22/2022 Diagnostic Pulmonary Medicine Rusty Vee M.D. [address] [place] [address] 06/22/2022 Appointment Radiology Rusty Vee M.D. [address] [place] [phone] 06/23/2022 Clinical Communication Admitting/Central Scheduling 06/28/2022 Appointment Pulmonary Medicine Rusty Vee M.D. [address] [place] [phone] 06/28/2022 Appointment Pulmonary Medicine Rusty Vee M.D. [address] [place] [phone] documented as of this encounter Procedures Procedure Name Priority Date/Time Associated Comments Diagnosis PROTHROMBIN TIME Routine 08/30/2012 10:57 Results for this (PT), P AM MEDICAL BILLING CLERK procedure are i n the results section. documented in this encounter Results PT (Prothrombin Time) with INR (08/30/2012 10:57 AM MEDICAL BILLING CLERK) P athologist Signature INR 2.28 [facility] Specimen (Source) Anatomical Collection Method Collection Time Re ceived Time Location / / Volume Laterality 08/30/2012 10:57 AM MEDICAL BILLING CLERK Historical Provider LAB BLOOD ADD-ON Performing Organization Address City/State/ZIP Code Phon e Number [facility] documented in this encounter Visit Diagnoses Not on filedocumented in this encounter
--- OUTSIDE RECORDS SUMMARY | 2022-05-25 21:14 | XMS_ITS | Encounter Summary ---
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 200 [place] [phone] 06/22/2022 Diagnostic Pulmonary Medicine Rusty Vee M.D. 200 [place] [phone] 06/22/2022 Diagnostic Pulmonary Medicine Rusty Vee M.D. [address] [place] [phone] 06/22/2022 Appointment Radiology Rusty Vee M.D. [address] [place] [phone] 06/23/2022 Clinical Communication Admitting/Central Scheduling 06/28/2022 Appointment Pulmonary Medicine Rsuty Vee M.D. [address] [place] [phone] 06/28/2022 Appointment Pulmonary Medicine Rusty Vee M.D. [address] [place] [phone] documented as of this encounter Procedures Procedure Name Priority Date/Time Associated Comments Diagnosis PROTHROMBIN TIME Routine 06/05/2012 10:01 Results for this (PT), P AM POTATO PICKER procedure are i n the results section. documented in this encounter Results PT (Prothrombin Time) with INR (06/05/2012 10:01 AM POTATO PICKER) P athologist Signature INR 1.60 [facility] Specimen (Source) Anatomical Collection Method Collection Time Re ceived Time Location / / Volume Laterality 06/05/2012 10:01 AM POTATO PICKER Historical Provider LAB BLOOD ADD-ON Performing Organization Address City/State/ZIP Code Phon e Number [facility] documented in this encounter Visit Diagnoses Not on filedocumented in this encounter
--- OUTSIDE RECORDS SUMMARY | 2022-05-25 21:14 | XMS_ITS | Encounter Summary ---
:1975 Author Organization [facility] Address [address] [place] [address] Care Team Providers Name Role Phone Unavailable Primary Care Provider Unavailable Encounter Details Date Type Department Care Team Description 11/01/2012 Hospital Encounter [facility] Social History Tobacco Use Types Packs/Day [...] at Date Recorded Female 05/03/2022 7:07 PM SLUNK SKINNER documented as of this encounter Progress Notes Lizeth Stubbs M.D. - 11/01/2012 3:00 PM CDT [id number] CLINIC ENCOUNTER This is a new patient [...] She has protein-S deficiency. She works at [employer]. Her mother lives in [place]. PHYSICAL EXAMINATION: Awake, alert female. Appropriate mood and affect. No acute distress. Focused perianal exam was performed with nurse price economist Eliana, the patient and her mother. She [...] Gabby Russo/st/law cc: Sridhar Garibay M.D. Source: [facility] RWHXTRANSXRTFSYS Document Id: [id number] documented in this encounter Plan of Treatment Upcoming Encounters Date Type Specialty Care Team Description 06/22/2022 Appointment Laboratory Medicine Rusty Vee M.D. [address] [place] [phone] 06/22/2022 Diagnostic Pulmonary Medicine Rusty Vee M.D. [address] [place] [phone] 06/22/2022 Diagnostic Pulmonary Medicine Rusty Vee M.D. [address] [place] [phone] 06/22/2022 Appointment Radiology Rusty Vee M.D. [address] [place] [phone] 06/23/2022 Clinical Communication Admitting/Central Scheduling 06/28/2022 Appointment Pulmonary Medicine Rusty Vee M.D. [address] [place] [phone] 06/28/2022 Appointment Pulmonary Medicine Rusty Vee M.D. [address] [place] [phone] documented as of this encounter Visit Diagnoses Not on filedocumented in this encounter
--- OUTSIDE RECORDS SUMMARY | 2022-05-25 21:15 | XMS_ITS | Encounter Summary ---
:1975 Author Organization [facility] Address [address] [place] [address] Care Team Providers Name Role Phone Unavailable Primary Care Provider Unavailable Encounter Details Date Type Department Care Team Description 02/07/2012 Hospital Encounter 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 200 [place] [phone] 06/22/2022 Diagnostic Pulmonary Medicine Rusty Vee M.D. 200 [place] [phone] 06/22/2022 Diagnostic Pulmonary Medicine Rusty Vee M.D. [address] [place] [phone] 06/22/2022 Appointment Radiology Rusty Vee M.D. [address] [place] [phone] 06/23/2022 Clinical Communication Admitting/Central Scheduling 06/28/2022 Appointment Pulmonary Medicine Rusty Vee M.D. [address] [place] [phone] 06/28/2022 Appointment Pulmonary Medicine Rusty Vee M.D. [address] [place] [phone] documented as of this encounter Procedures Procedure Name Priority Date/Time Associated Comments Diagnosis PROTHROMBIN TIME Routine 02/07/2012 10:08 Results for this (PT), P AM CDT procedure are i n the results section. documented in this encounter Results PT (Prothrombin Time) with INR (02/07/2012 10:08 AM CDT) P athologist Signature INR 2.28 [facility] Specimen (Source) Anatomical Collection Method Collection Time Re ceived Time Location / / Volume Laterality 02/07/2012 10:08 AM CDT Historical Provider LAB BLOOD ADD-ON Performing Organization Address City/State/ZIP Code Phon e Number [facility] documented in this encounter Visit Diagnoses Not on filedocumented in this encounter
--- OUTSIDE RECORDS SUMMARY | 2022-05-25 21:15 | XMS_ITS | Encounter Summary ---
:1975 Author Organization [facility] Address [address] [place] [address] Care Team Providers Name Role Phone Unavailable Primary Care Provider Unavailable Encounter Details Date Type Department Care Team Description 03/05/2012 Hospital Encounter [facility] Marsha Garibay M.D. [address] [place], [place] [address] (Wo rk) Social History [...] at Date Recorded Female 05/03/2022 7:07 PM SR. MERCHANDISE PLANNER documented as of this encounter Progress Notes Sridhar Garibay M.D. - 03/05/2012 3:30 PM CDT [id number] This office note has been dictated. Source: [facility] RWHXTRANSXRTFSYS Document Id: [id number] Electronically signed by Conversion, [facility] Electrical And Radio Mock Up Mechanic [id number] at 11/26/2016 4:07 PM CDT Sridhar Garibay M.D. - 03/05/2012 3:30 PM CDT [id number] CLINIC ENCOUNTER SUBJECTIVE: Patient presents today for [...] reassured. Sridhar Garibay M.D. RADAMES/st/law cc: Source: [facility] RWHXTRANSXRTFSYS Document Id: [id number] Electronically signed by Conversion, [facility] Electrical And Radio Mock Up Mechanic [id number] at 11/26/2016 4:07 PM CDT documented in this encounter Plan of Treatment Upcoming Encounters Date Type Specialty Care Team Description 06/22/2022 Appointment Laboratory Medicine Rusty Vee M.D. [address] [place] [phone] 06/22/2022 Diagnostic Pulmonary Medicine Rusty Vee M.D. [address] [place] [phone] 06/22/2022 Diagnostic Pulmonary Medicine Rusty Vee M.D. [address] [place] [phone] 06/22/2022 Appointment Radiology Rusty Vee M.D. [address] [place] [phone] 06/23/2022 Clinical Communication Admitting/Central Scheduling 06/28/2022 Appointment Pulmonary Medicine Rusty Vee M.D. [address] [place] [phone] 06/28/2022 Appointment Pulmonary Medicine Rusty Vee M.D. [address] [place] [phone] documented as of this encounter Visit Diagnoses Not on filedocumented in this encounter
--- OUTSIDE RECORDS SUMMARY | 2022-05-25 21:15 | XMS_ITS | Encounter Summary ---
:1975 Author Organization [facility] Address [address] [place] [address] Care Team Providers Name Role Phone Unavailable Primary Care Provider Unavailable Encounter Details Date Type Department Care Team Description 05/08/2012 Hospital Encounter [facility] ANTICOAG Provider, His torical Social [...] Date Recorded Female 05/03/2022 7:07 PM QUALITY INTERNSHIP documented as of this encounter Plan of Treatment Upcoming Encounters Date Type Specialty Care Team Description 06/22/2022 Appointment Laboratory Medicine Rusty Vee M.D. 200 [place] [phone] 06/22/2022 Diagnostic Pulmonary Medicine Rusty Vee M.D. 200 [place] [phone] 06/22/2022 Diagnostic Pulmonary Medicine Rusty Vee M.D. [address] [place] [phone] 06/22/2022 Appointment Radiology Rusty Vee M.D. [address] [place] [phone] 06/23/2022 Clinical Communication Admitting/Central Scheduling 06/28/2022 Appointment Pulmonary Medicine Rusty Vee M.D. [address] [place] [phone] 06/28/2022 Appointment Pulmonary Medicine Rusty Vee M.D. [address] [place] [phone] documented as of this encounter Procedures Procedure Name Priority Date/Time Associated Comments Diagnosis PROTHROMBIN TIME Routine 05/08/2012 9:38 AM Resul ts for this (PT), P QUALITY INTERNSHIP procedure are i n the results section. documented in this encounter Results PT (Prothrombin Time) with INR (05/08/2012 9:38 AM QUALITY INTERNSHIP) P athologist Signature INR 1.47 [facility] Specimen (Source) Anatomical Collection Method Collection Time Re ceived Time Location / / Volume Laterality 05/08/2012 9:38 AM QUALITY INTERNSHIP Historical Provider LAB BLOOD ADD-ON Performing Organization Address City/State/ZIP Code Phon e Number [facility] documented in this encounter Visit Diagnoses Not on filedocumented in this encounter
--- OUTSIDE RECORDS SUMMARY | 2022-05-25 21:15 | XMS_ITS | Encounter Summary ---
:1975 Author Organization [facility] Address [address] [place] [address] Care Team Providers Name Role Phone Unavailable Primary Care Provider Unavailable Encounter Details Date Type Department Care Team Description 12/29/2011 Hospital Encounter [facility] Antonia Jenkins R.N. Social History Tobacco [...] More than 4 times per year 05/04/2022 rastafari services? 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 200 [place] [phone] 06/22/2022 Diagnostic Pulmonary Medicine Rusty Vee M.D. 200 [place] [address] 06/22/2022 Diagnostic Pulmonary Medicine Rusty Vee M.D. [address] [place] [phone] 06/22/2022 Appointment Radiology Rusty Vee M.D. [address] [place] [phone] 06/23/2022 Clinical Communication Admitting/Central Scheduling 06/28/2022 Appointment Pulmonary Medicine Rusty Vee M.D. [address] [place] [phone] 06/28/2022 Appointment Pulmonary Medicine Rusty Vee M.D. [address] [place] [phone] documented as of this encounter Visit Diagnoses Not on filedocumented in this encounter
--- OUTSIDE RECORDS SUMMARY | 2022-05-25 21:15 | XMS_ITS | Encounter Summary ---
:1975 Author Organization [facility] Address [address] [place] [address] Care Team Providers Name Role Phone Unavailable Primary Care Provider Unavailable Encounter Details Date Type Department Care Team Description 08/14/2011 Hospital Encounter [facility] Marsha Garibay M.D. [address] [place], [place] [address] (Wo rk) Social History [...] Date Recorded Female 05/03/2022 7:07 PM HAND LACER documented as of this encounter Miscellaneous Notes Telephone Encounter - Conversion, Historical Provider Ser - 08/14/2011 12:00 AM CST [id number] Faxed request from pharmacy,will be directly faxed [...] close encounter when finished; thank you. [facility] Document Id: [id number] Telephone Encounter - Antonia Mcclellan R.N. - 08/14/2011 12:00 AM CST [id number] Prescription approved per RN refill protocol. . Source: [facility] Document Id: [id number] Electronically signed by Conversion, [facility] Engineer Second Assistant [id number] at 11/26/2016 6:53 PM CDT documented in this encounter Plan of Treatment Upcoming Encounters Date Type Specialty Care Team Description 06/22/2022 Appointment Laboratory Medicine Rusty Vee M.D. [address] [place] [address] [phone] 06/22/2022 Diagnostic Pulmonary Medicine Rusty Vee M.D. [address] [place] [phone] 06/22/2022 Diagnostic Pulmonary Medicine Rusty Vee M.D. [address] [place] [address] [phone] 06/22/2022 Appointment Radiology Rusty Vee M.D. [address] [place] [address] [phone] 06/23/2022 Clinical Communication Admitting/Central Scheduling 06/28/2022 Appointment Pulmonary Medicine Rusty Vee M.D. [address] [place] [phone] 06/28/2022 Appointment Pulmonary Medicine Rusty Vee M.D. [address] [place] [address] documented as of this encounter Visit Diagnoses Not on filedocumented in this encounter
--- OUTSIDE RECORDS SUMMARY | 2022-05-25 21:15 | XMS_ITS | Encounter Summary ---
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 200 [place] [phone] 06/22/2022 Diagnostic Pulmonary Medicine Rusty Vee M.D. 200 [place] [phone] 06/22/2022 Diagnostic Pulmonary Medicine Rusty Vee M.D. [address] [place] [phone] 06/22/2022 Appointment Radiology Rusty Vee M.D. [address] [place] [phone] 06/23/2022 Clinical Communication Admitting/Central Scheduling 06/28/2022 Appointment Pulmonary Medicine Rusty Vee M.D. [address] [place] [phone] 06/28/2022 Appointment Pulmonary Medicine Rusty Vee M.D. [address] [place] [phone] documented as of this encounter Visit Diagnoses Not on filedocumented in this encounter
--- OUTSIDE RECORDS SUMMARY | 2022-05-25 21:15 | XMS_ITS | Encounter Summary ---
:1975 Author Organization [facility] Address [address] [place] [address] Care Team Providers Name Role Phone Unavailable Primary Care Provider Unavailable Encounter Details Date Type Department Care Team Description 10/25/2011 Hospital Encounter [facility] ANTICOAG Provider, His torical [...] Date Recorded Female 05/03/2022 7:07 PM LEAD MINER documented as of this encounter Plan of Treatment Upcoming Encounters Date Type Specialty Care Team Description 06/22/2022 Appointment Laboratory Medicine Rusty Vee M.D. 200 [place] [phone] 06/22/2022 Diagnostic Pulmonary Medicine Rusty Vee M.D. 200 [place] [phone] 06/22/2022 Diagnostic Pulmonary Medicine Rusty Vee M.D. [address] [place] [phone] 06/22/2022 Appointment Radiology Rusty Vee M.D. [address] [place] [phone] 06/23/2022 Clinical Communication Admitting/Central Scheduling 06/28/2022 Appointment Pulmonary Medicine Rusty Vee M.D. [address] [place] [phone] 06/28/2022 Appointment Pulmonary Medicine Rusty Vee M.D. [address] [place] [phone] documented as of this encounter Procedures Procedure Name Priority Date/Time Associated Comments Diagnosis PROTHROMBIN TIME Routine 10/25/2011 9:52 AM Resul ts for this (PT), P CDT procedure are i n the results section. documented in this encounter Results PT (Prothrombin Time) with INR (10/25/2011 9:52 AM CDT) P athologist Signature INR 3.30 [facility] Specimen (Source) Anatomical Collection Method Collection Time Re ceived Time Location / / Volume Laterality 10/25/2011 9:52 AM CDT Historical Provider LAB BLOOD ADD-ON Performing Organization Address City/State/ZIP Code Phon e Number [facility] documented in this encounter Visit Diagnoses Not on filedocumented in this encounter
--- OUTSIDE RECORDS SUMMARY | 2022-05-25 21:15 | XMS_ITS | Encounter Summary ---
:1975 Author Organization [facility] Address [address] [place] [address] Care Team Providers Name Role Phone Unavailable Primary Care Provider Unavailable Encounter Details Date Type Department Care Team Description 09/15/2011 Hospital Encounter [facility] Valentina Abdi, RMichaelN. [address] [place] [phone] Social History Tobacco Use Types Packs/Day Years [...] More than 4 times per year 05/04/2022 yazidi services? 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 - 09/15/2011 12:00 AM CDT [id number] Situation/What is the patients concern/need: Pt calling into report that her period is 5 days late. Clinical Background/Recent Intervention: Pt has a Dx of irregular menses. Pt states that she can not get and is not on any control. Recommendation/Patient Request: Pt advised to wait one more week and call back if further questions or concerns arise. Source: [facility] Document Id: [id number] documented in this encounter Plan of Treatment Upcoming Encounters Date Type Specialty Care Team Description 06/22/2022 Appointment Laboratory Medicine Rusty Vee M.D. [address] [place] [phone] 06/22/2022 Diagnostic Pulmonary Medicine Rusty Vee M.D. [address] [place] [phone] 06/22/2022 Diagnostic Pulmonary Medicine Rusty Vee M.D. [address] [place] [phone] 06/22/2022 Appointment Radiology Rusty Vee M.D. [address] [place] [phone] 06/23/2022 Clinical Communication Admitting/Central Scheduling 06/28/2022 Appointment Pulmonary Medicine Rusty Vee M.D. [address] [place] [phone] 06/28/2022 Appointment Pulmonary Medicine Rusty Vee M.D. [address] [place] [phone] documented as of this encounter Visit Diagnoses Not on filedocumented in this encounter
--- OUTSIDE RECORDS SUMMARY | 2022-05-25 21:15 | XMS_ITS | Encounter Summary ---
:1975 Author Organization [facility] Address [address] [place] [address] Care Team Providers Name Role Phone Unavailable Primary Care Provider Unavailable Encounter Details Date Type Department Care Team Description 11/04/2011 Hospital Encounter [facility] Jaine Hunt ra, R.N. 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 - 11/04/2011 12:00 AM CDT [id number] Received [employer] form that was filled out by family / staff. [employer] clerks discussed w/ PCP's triage nurse. Per PCP, patient does need to be seen by PCP to have this signed. Pt was seen for annual UI ARCHITECT exam in Jun 2011 but PCP requesting appt for final signing. Source: [facility] Document Id: [id number] Electronically signed by Conversion, [facility] Movement Therapist [id number] at 11/26/2016 6:06 PM CDT Telephone Encounter - Jazz Hunt R.N. - 11/04/2011 12:00 AM CDT [id number] Mom r/c and will arrange to have Zuleima brought out to the clinic for an appt w/ PCP for signing of form. Gracie has form in her yellow file until appt time. Source: [facility] Document Id: [id number] Electronically signed by Conversion, [facility] Movement Therapist [id number] at 11/26/2016 6:06 PM CDT documented in this encounter Plan of Treatment Upcoming Encounters Date Type Specialty Care Team Description 06/22/2022 Appointment Laboratory Medicine Rusty Vee M.D. [address] [place] [phone] 06/22/2022 Diagnostic Pulmonary Medicine Rusty Vee M.D. [address] [place] [phone] 06/22/2022 Diagnostic Pulmonary Medicine Rusty Vee M.D. [address] [place] [phone] 06/22/2022 Appointment Radiology Rusty Vee M.D. [address] [place] [phone] 06/23/2022 Clinical Communication Admitting/Central Scheduling 06/28/2022 Appointment Pulmonary Medicine Rusty Vee M.D. [address] [place] [phone] 06/28/2022 Appointment Pulmonary Medicine Rusty Vee M.D. [address] [place] [phone] documented as of this encounter Visit Diagnoses Not on filedocumented in this encounter
--- OUTSIDE RECORDS SUMMARY | 2022-05-25 21:15 | XMS_ITS | Encounter Summary ---
:1975 Author Organization [facility] Address [address] [place] [address] Care Team Providers Name Role Phone Unavailable Primary Care Provider Unavailable Encounter Details Date Type Department Care Team Description 02/03/2012 Hospital Encounter [facility] Mima Malagon R.N. 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 200 [place] [phone] 06/22/2022 Diagnostic Pulmonary Medicine Rusty Vee M.D. [address] [place] [phone] 06/22/2022 Diagnostic Pulmonary Medicine Rusty Vee M.D. [address] [place] [phone] 06/22/2022 Appointment Radiology Rusty Vee M.D. [address] [place] [phone] 06/23/2022 Clinical Communication Admitting/Central Scheduling 06/28/2022 Appointment Pulmonary Medicine Rusty Vee M.D. [address] [place] [address] [phone] 06/28/2022 Appointment Pulmonary Medicine Rusty Vee M.D. [address] [place] [address] [phone] documented as of this encounter Visit Diagnoses Not on filedocumented in this encounter
--- OUTSIDE RECORDS SUMMARY | 2022-05-25 21:15 | XMS_ITS | Encounter Summary ---
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 200 [place] [phone] 06/22/2022 Diagnostic Pulmonary Medicine Rusty Vee M.D. 200 [place] [phone] 06/22/2022 Diagnostic Pulmonary Medicine Rusty Vee M.D. [address] [place] [phone] 06/22/2022 Appointment Radiology Rusty Vee M.D. [address] [place] [phone] 06/23/2022 Clinical Communication Admitting/Central Scheduling 06/28/2022 Appointment Pulmonary Medicine Rusty Vee M.D. [address] [place] [phone] 06/28/2022 Appointment Pulmonary Medicine Rusty Vee M.D. [address] [place] [phone] documented as of this encounter Procedures Procedure Name Priority Date/Time Associated Comments Diagnosis PROTHROMBIN TIME Routine 04/10/2012 9:36 AM Resul ts for this (PT), P CDT procedure are i n the results section. documented in this encounter Results PT (Prothrombin Time) with INR (04/10/2012 9:36 AM CDT) P athologist Signature INR 2.40 [facility] Specimen (Source) Anatomical Collection Method Collection Time Re ceived Time Location / / Volume Laterality 04/10/2012 9:36 AM CDT Historical Provider LAB BLOOD ADD-ON Performing Organization Address City/State/ZIP Code Phon e Number [facility] documented in this encounter Visit Diagnoses Not on filedocumented in this encounter
--- OUTSIDE RECORDS SUMMARY | 2022-05-25 21:15 | XMS_ITS | Encounter Summary ---
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 - 2012 8:40 AM CDT [id number] Quick Note: Please call pt. Plan was to do labs and then see me. Please have her see me for recheck of thyroid. Source: [facility] Document Id: [id number] Electronically signed by Conversion, [facility] Dry Pan Charger [id number] at 11/26/2016 4:31 PM CDT documented in this encounter Plan of Treatment Upcoming Encounters Date Type Specialty Care Team Description 06/22/2022 Appointment Laboratory Medicine Rusty Vee M.D. [address] [place] [phone] 06/22/2022 Diagnostic Pulmonary Medicine Rusty Vee M.D. [address] [place] [phone] 06/22/2022 Diagnostic Pulmonary Medicine Rusty Vee M.D. [address] [place] [phone] 06/22/2022 Appointment Radiology Rusty Vee M.D. [address] [place] [phone] 06/23/2022 Clinical Communication Admitting/Central Scheduling 06/28/2022 Appointment Pulmonary Medicine Rusty Vee M.D. [address] [place] [phone] 06/28/2022 Appointment Pulmonary Medicine Rusty Vee M.D. [address] [place] [phone] documented as of this encounter Procedures Procedure [...] Patho logist Time Signature Thyroglobulin <20 IUML [facility] Antibody, [facility] Specimen (Source) Anatomical Collection Method Collection Time Re ceived Time Location / / Volume Laterality 01/11/2012 11:56 AM CDT Historical Provider LAB BLOOD NON ADD-ON Performing Organization Address City/State/ZIP Code Phon e Number [facility] Thyroperoxidase (TPO) Antibodies, Serum (01/11/2012 11:56 AM CDT) Patholo gist Method Time Signature Thyroperoxidase Ab, <10 IUML [facility] Specimen (Source) Anatomical Collection Method Collection Time Re ceived Time Location / / Volume Laterality 01/11/2012 11:56 AM CDT Historical Provider LAB BLOOD NON ADD-ON Performing Organization Address City/State/ZIP Code Phon e Number [facility] T4 (Thyroxine), Free (2012 11:45 AM CDT) P athologist Signature T4 (Thyroxine), 0.91 NGDL [facility] Free, [facility] Specimen (Source) Anatomical Collection Method Collection Time Re ceived Time Location / / Volume Laterality 2012 11:45 AM CDT Historical Provider LAB BLOOD ADD-ON Performing Organization Address City/State/ZIP Code Phon e Number [facility] S-TSH (Thyroid-Stimulating Hormone - Sensitive) (2012 11:45 AM CDT) P athologist Signature TSH 5.69 MUNITL [facility] (Thyrotropin) [facility] Specimen (Source) Anatomical Collection Method Collection Time Re ceived Time Location / / Volume Laterality 2012 11:45 AM CDT Historical Provider LAB BLOOD ADD-ON Performing Organization Address City/State/ZIP Code Phon e Number [facility] PT (Prothrombin Time) with INR (2012 11:10 AM CDT) P athologist Signature INR 2.30 [facility] Specimen (Source) Anatomical Collection Method Collection Time Re ceived Time Location / / Volume Laterality 2012 11:10 AM CDT Historical Provider LAB BLOOD ADD-ON Performing Organization Address City/State/ZIP Code Phon e Number [facility] documented in this encounter Visit Diagnoses Not on filedocumented in this encounter
--- OUTSIDE RECORDS SUMMARY | 2022-05-25 21:15 | XMS_ITS | Encounter Summary ---
:1975 Author Organization [facility] Address [address] [place] [address] Care Team Providers Name Role Phone Unavailable [...] at Date Recorded Female 05/03/2022 7:07 PM CITRUS PEELER documented as of this encounter Plan of Treatment Upcoming Encounters Date Type Specialty Care Team Description 06/22/2022 Appointment Laboratory Medicine Rusty Vee M.D. 200 [place] [phone] 06/22/2022 Diagnostic Pulmonary Medicine Rusty Vee M.D. 200 [place] [phone] 06/22/2022 Diagnostic Pulmonary Medicine Rusty Vee M.D. [address] [place] [phone] 06/22/2022 Appointment Radiology Rusty Vee M.D. [address] [place] [phone] 06/23/2022 Clinical Communication Admitting/Central Scheduling 06/28/2022 Appointment Pulmonary Medicine Rusty Vee M.D. [address] [place] [address] [phone] 06/28/2022 Appointment Pulmonary Medicine Rusty Vee M.D. [address] [place] [phone] documented as of this encounter Visit Diagnoses Not on filedocumented in this encounter
--- OUTSIDE RECORDS SUMMARY | 2022-05-25 21:15 | XMS_ITS | Encounter Summary ---
:1975 Author Organization [facility] Address [address] [place] [address] Care Team Providers Name Role Phone Unavailable Primary Care Provider Unavailable Encounter Details Date Type Department Care Team Description 12/30/2011 Hospital Encounter 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 Hue Bellamy Carol: Your Lab today was: INR 3.03 12/30/2011 Your target range for your condition is: 2 - 3 You should: CHANGE YOUR COUMADIN DOSE Your Coumadin Tablet Strength should be: 5 mg Daily Dose: SUN:2.5mg MON:2.5mg TUE:5mg WED:2.5mg THUR:5mg FRI:2.5mg SAT:2.5mg Number of Pills to take each day: SUN:06/27 MON:06/27 TUE:1 WED:06/27 THUR:1 FRI:06/27 SAT:2 Your next lab appointment is scheduled for: 01/10/12 at [facility]. [facility] labs should be drawn before 3:00 PM. [facility] labs should be drawn before 4:00 PM. If you have questions regarding any of the above information or feel the information is not accurateplease call [phone] or [phone]. [phone]. Thank you, Ermelinda Casas [facility] staff: Eliana Farooq RN; Antonia Mcclellan, RN; Fina Peres, ANGELINE; Ermelinda Casas RN; Mima Campo, ANGELINE; Love Medina, RN Source: [facility]XTR[facility] Document Id: [id number] documented in this encounter Plan of Treatment Upcoming Encounters Date Type Specialty Care Team Description 06/22/2022 Appointment Laboratory Medicine Rusty Vee M.D. 200 [place] [phone] 06/22/2022 Diagnostic Pulmonary Medicine Rusty Vee M.D. [address] [place] [phone] 06/22/2022 Diagnostic Pulmonary Medicine Rusty Vee M.D. [address] [place] [phone] 06/22/2022 Appointment Radiology Rusty Vee M.D. [address] [place] [phone] 06/23/2022 Clinical Communication Admitting/Central Scheduling 06/28/2022 Appointment Pulmonary Medicine Rusty Vee M.D. [address] [place] [phone] 06/28/2022 Appointment Pulmonary Medicine Rusty Vee M.D. [address] [place] [phone] documented as of this encounter Procedures Procedure Name Priority Date/Time Associated Comments Diagnosis PROTHROMBIN TIME Routine 12/30/2011 8:59 AM Resul ts for this (PT), P CDT procedure are i n the results section. documented in this encounter Results PT (Prothrombin Time) with INR (12/30/2011 8:59 AM CDT) P athologist Signature INR 3.03 [facility] Specimen (Source) Anatomical Collection Method Collection Time Re ceived Time Location / / Volume Laterality 12/30/2011 8:59 AM CDT Historical Provider LAB BLOOD ADD-ON Performing Organization Address City/State/ZIP Code Phon e Number [facility] documented in this encounter Visit Diagnoses Not on filedocumented in this encounter
--- OUTSIDE RECORDS SUMMARY | 2022-05-25 21:15 | XMS_ITS | Encounter Summary ---
:1975 Author Organization [facility] Address [address] [place] [address] Care Team Providers Name Role Phone Unavailable Primary Care Provider Unavailable Encounter Details Date Type Department Care Team Description 11/08/2011 Hospital Encounter [facility]ILYPR[facility] Marsha Garibay M.D. 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 - 11/08/2011 10:30 AM CDT [id number] CLINIC ENCOUNTER SUBJECTIVE: The patient presents today [...] and hyperglycemia. 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 2. Elevated TSH during recent GREENHOUSE TECHNICIAN examination. 3. Hyperlipidemia. 4. Hyperglycemia. 5. [...] for her mild edema. Sridhar Garibay M.D. ECM/jessie cc: Source: [facility] Document Id: [id number] Electronically signed by Conversion, [facility] Global Expansion Sales Director [id number] at 11/26/2016 6:06 PM CDT Sridhar Garibay M.D. - 11/08/2011 10:30 AM CDT [id number] This office note has been dictated. Source: [facility] Document Id: [id number] Electronically signed by Conversion, [facility] Global Expansion Sales Director [id number] at 11/26/2016 6:06 PM CDT documented in this encounter Plan of Treatment Upcoming Encounters Date Type Specialty Care Team Description 06/22/2022 Appointment Laboratory Medicine Rusty Vee M.D. [address] [place] [phone] 06/22/2022 Diagnostic Pulmonary Medicine Rusty Vee M.D. [address] [place] [phone] 06/22/2022 Diagnostic Pulmonary Medicine Rusty Vee M.D. [address] [place] [phone] 06/22/2022 Appointment Radiology Rusty Vee M.D. [address] [place] [phone] 06/23/2022 Clinical Communication Admitting/Central Scheduling 06/28/2022 Appointment Pulmonary Medicine Rusty Vee M.D. [address] [place] [phone] 06/28/2022 Appointment Pulmonary Medicine Rusty Vee M.D. [address] [place] [phone] documented as of this encounter Visit Diagnoses Not on filedocumented in this encounter
--- OUTSIDE RECORDS SUMMARY | 2022-05-25 21:15 | XMS_ITS | Encounter Summary ---
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 KARMEN Pena/libia Source: [facility] Document Id: [id number] documented in this encounter Plan of Treatment Upcoming Encounters Date Type Specialty Care Team Description 06/22/2022 Appointment Laboratory Medicine Rusty Vee M.D. [address] [place] [phone] 06/22/2022 Diagnostic Pulmonary Medicine Rusty Vee M.D. [address] [place] [phone] 06/22/2022 Diagnostic Pulmonary Medicine Rusty Vee M.D. [address] [place] [phone] 06/22/2022 Appointment Radiology Rusty Vee M.D. [address] [place] [phone] 06/23/2022 Clinical Communication Admitting/Central Scheduling 06/28/2022 Appointment Pulmonary Medicine Rusty Vee M.D. [address] [place] [phone] 06/28/2022 Appointment Pulmonary Medicine Rusty Vee M.D. [address] [place] [phone] documented as of this encounter Visit Diagnoses Not on filedocumented in this encounter
--- OUTSIDE RECORDS SUMMARY | 2022-05-25 21:15 | XMS_ITS | Encounter Summary ---
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 200 [place] [phone] 06/22/2022 Diagnostic Pulmonary Medicine Rusty Vee M.D. 200 [place] [phone] 06/22/2022 Diagnostic Pulmonary Medicine Rusty Vee M.D. [address] [place] [phone] 06/22/2022 Appointment Radiology Rusty Vee M.D. [address] [place] [phone] 06/23/2022 Clinical Communication Admitting/Central Scheduling 06/28/2022 Appointment Pulmonary Medicine Rusty Vee M.D. [address] [place] [phone] 06/28/2022 Appointment Pulmonary Medicine Rusty Vee M.D. [address] [place] [phone] documented as of this encounter Procedures Procedure Name Priority Date/Time Associated Comments Diagnosis PROTHROMBIN TIME Routine 09/27/2011 9:37 AM Resul ts for this (PT), P CDT procedure are i n the results section. documented in this encounter Results PT (Prothrombin Time) with INR (09/27/2011 9:37 AM CDT) P athologist Signature INR 2.27 [facility] [...]
--- OUTSIDE RECORDS SUMMARY | 2022-05-25 21:15 | XMS_ITS | Encounter Summary ---
:1975 Author Organization [facility] Address [address] [place] [address] Care Team Providers Name Role Phone Unavailable Primary Care Provider Unavailable Encounter Details Date Type Department Care Team Description 11/29/[address] [facility] ANTICOAG Provider, His torical Social [...] at Date Recorded Female 05/03/2022 7:07 PM JERSEY KNITTER documented as of this encounter Plan of Treatment Upcoming Encounters Date Type Specialty Care Team Description 06/22/2022 Appointment Laboratory Medicine Rusty Vee M.D. 200 [place] [phone] 06/22/2022 Diagnostic Pulmonary Medicine Rusty Vee M.D. 200 [place] [phone] 06/22/2022 Diagnostic Pulmonary Medicine Rusty Vee M.D. [address] [place] [phone] 06/22/2022 Appointment Radiology Rusty Vee M.D. [address] [place] [phone] 06/23/2022 Clinical Communication Admitting/Central Scheduling 06/28/2022 Appointment Pulmonary Medicine Rusty Vee M.D. [address] [place] [phone] 06/28/2022 Appointment Pulmonary Medicine Rusty Vee M.D. [address] [place] [phone] documented as of this encounter Procedures Procedure Name Priority Date/Time Associated Comments Diagnosis PROTHROMBIN TIME Routine 11/29/2011 10:07 Results for this (PT), P AM CDT procedure are i n the results section. documented in this encounter Results PT (Prothrombin Time) with INR (11/29/2011 10:07 AM CDT) P athologist Signature INR 2.52 [facility] Specimen (Source) Anatomical Collection Method Collection Time Re ceived Time Location / / Volume Laterality 11/29/2011 10:07 AM CDT Historical Provider LAB BLOOD ADD-ON Performing Organization Address City/State/ZIP Code Phon e Number [facility] documented in this encounter Visit Diagnoses Not on filedocumented in this encounter
--- OUTSIDE RECORDS SUMMARY | 2022-05-25 21:15 | XMS_ITS | Encounter Summary ---
:1975 Author Organization [facility] Address [address] [place] [address] Care Team Providers Name Role Phone Unavailable Primary Care Provider Unavailable Encounter Details Date Type Department Care Team Description 08/02/2011 Hospital Encounter [facility] ANTICOAG Provider, His torical Social History [...] at Date Recorded Female 05/03/2022 7:07 PM MANUFACTURERS SERVICE REPRESENTATIVE documented as of this encounter Progress Notes Khadar Medina R.N. - 08/02/2011 10:35 AM CST [id number] Addended by: KHADAR MEDINA on: 08/02/2011 Modules accepted: Level of Service Source: [facility] Document Id: [id number] Electronically signed by [facility] Performance Improvement Manager [id number] at 11/26/2016 8:35 PM CDT documented in this encounter Miscellaneous Notes Miscellaneous - Conversion, Historical Provider Ser - 08/02/2011 10:35 AM MANUFACTURERS SERVICE REPRESENTATIVE [id number] [facility] [address] [facility] [address] August 03, 2011 Hue Bellamy Carol [address] [facility] [phone] [facility] [phone] Dear Carol: I am writing to inform you [...] or problems, please contact our office at [phone]. Sincerely, Sera Velarde PA-C [facility] Source: [facility] Document Id: [id number] documented in this encounter Plan of Treatment Upcoming Encounters Date Type Specialty Care Team Description 06/22/2022 Appointment Laboratory Medicine Rusty Vee M.D. [address] [place] [phone] 06/22/2022 Diagnostic Pulmonary Medicine Rusty Vee M.D. [address] [place] [phone] 06/22/2022 Diagnostic Pulmonary Medicine Rusty Vee M.D. [address] [place] [phone] 06/22/2022 Appointment Radiology Rusty eVe M.D. [address] [place] [phone] 06/23/2022 Clinical Communication Admitting/Central Scheduling 06/28/2022 Appointment Pulmonary Medicine Rusty Vee M.D. [address] [place] [phone] 06/28/2022 Appointment Pulmonary Medicine Rusty Vee M.D. [address] [place] [phone] documented as of this encounter Procedures Procedure Name Priority Date/Time Associated Comments Diagnosis T4 (THYROXINE), FREE, Routine 08/02/2011 11:15 Re sults for this S AM MANUFACTURERS SERVICE REPRESENTATIVE procedure are i n the results section. THYROID-STIMULATING Routine 08/02/2011 10:49 Resu lts for this HORMONE-SENSITIVE AM MANUFACTURERS SERVICE REPRESENTATIVE procedure are in (S-TSH) the results section. HX CHOL/HDL RATIO Routine 08/02/2011 10:07 Result s for this AM MANUFACTURERS SERVICE REPRESENTATIVE procedure are i n the results section. HX VLDL CHOL Routine 08/02/2011 10:07 Results for this AM MANUFACTURERS SERVICE REPRESENTATIVE procedure are i n the results section. LIPID PANEL, S Routine 08/02/2011 10:07 Results f or this AM MANUFACTURERS SERVICE REPRESENTATIVE procedure are i n the results section. TRIGLYCERIDES, S Routine 08/02/2011 10:07 Results for this AM MANUFACTURERS SERVICE REPRESENTATIVE procedure are i n the results section. CHOLESTEROL, HDL, S Routine 08/02/2011 10:07 Resu lts for this AM MANUFACTURERS SERVICE REPRESENTATIVE procedure are i n the results section. GLUCOSE, RANDOM, S/P Routine 08/02/2011 10:07 Res ults for this AM MANUFACTURERS SERVICE REPRESENTATIVE procedure are i n the results section. CHOLESTEROL, TOTAL, S Routine 08/02/2011 10:07 Re sults for this AM MANUFACTURERS SERVICE REPRESENTATIVE procedure are i n the results section. PROTHROMBIN TIME Routine 08/02/2011 10:02 Results for this (PT), P AM MANUFACTURERS SERVICE REPRESENTATIVE procedure are i n the results section. documented in this encounter Results T4 (Thyroxine), Free (08/02/2011 11:15 AM MANUFACTURERS SERVICE REPRESENTATIVE) P athologist Signature T4 (Thyroxine), 0.90 NGDL [facility] Free, [facility] Specimen (Source) Anatomical Collection Method Collection Time Re ceived Time Location / / Volume Laterality 08/02/2011 11:15 AM MANUFACTURERS SERVICE REPRESENTATIVE Historical Provider LAB BLOOD ADD-ON Performing Organization Address City/State/ZIP Code Phon e Number [facility] S-TSH (Thyroid-Stimulating Hormone - Sensitive) (08/02/2011 10:49 AM MANUFACTURERS SERVICE REPRESENTATIVE) P athologist Signature TSH 7.04 MUNITL [facility] (Thyrotropin) [facility] Specimen (Source) Anatomical Collection Method Collection Time Re ceived Time Location / / Volume Laterality 08/02/2011 10:49 AM MANUFACTURERS SERVICE REPRESENTATIVE Historical Provider LAB BLOOD ADD-ON Performing Organization Address City/State/ZIP Code Phon e Number [facility] Glucose, Random (08/02/2011 10:07 AM MANUFACTURERS SERVICE REPRESENTATIVE) P athologist Signature Glucose 83 MGDL [facility] Specimen (Source) Anatomical Collection Method Collection Time Re ceived Time Location / / Volume Laterality 08/02/2011 10:07 AM MANUFACTURERS SERVICE REPRESENTATIVE Narrative [facility] - 08/25/19 14 2:02 AM MANUFACTURERS SERVICE REPRESENTATIVE Fasting specimen Historical Provider LAB BLOOD TROPONIN Performing Organization Address City/State/ZIP Code Phon e Number [facility] HX CHOL/HDL RATIO (08/02/2011 10:07 AM MANUFACTURERS SERVICE REPRESENTATIVE) P athologist Signature Total 5.0 [facility] Cholesterol/HDL [facility] LAB Specimen (Source) Anatomical Collection Method Collection Time Re ceived Time Location / / Volume Laterality 08/02/2011 10:07 AM MANUFACTURERS SERVICE REPRESENTATIVE Historical Provider LAB HISTORICAL ORDERS Performing Organization Address City/State/ZIP Code Phon e Number [facility] HX VLDL CHOL (08/02/2011 10:07 AM MANUFACTURERS SERVICE REPRESENTATIVE) P athologist Signature VLDL cholesterol 28 MGDL [facility] Specimen (Source) Anatomical Collection Method Collection Time Re ceived Time Location / / Volume Laterality 08/02/2011 10:07 AM MANUFACTURERS SERVICE REPRESENTATIVE Historical Provider LAB HISTORICAL ORDERS Performing Organization Address City/State/ZIP Code Phon e Number [facility] Lipid Panel (08/02/2011 10:07 AM MANUFACTURERS SERVICE REPRESENTATIVE) P athologist Signature Calculated LDL 137 MGDL [facility] Specimen (Source) Anatomical Collection Method Collection Time Re ceived Time Location / / Volume Laterality 08/02/2011 10:07 AM MANUFACTURERS SERVICE REPRESENTATIVE Narrative [facility] - 08/25/19 14 2:01 AM MANUFACTURERS SERVICE REPRESENTATIVE LDL Cholesterol is the primary guide to therapy: LDL-cholesterol goal in high risk patients is <100 mg/dL and in very high risk patients is <70 mg/dL. Historical Provider LAB BLOOD ADD-ON Performing Organization Address City/State/ZIP Code Phon e Number [facility] Cholesterol, High-Density Lipoprotein (HDL) (08/02/2011 10:07 AM MANUFACTURERS SERVICE REPRESENTATIVE) P athologist Signature HX HDL 42 MGDL [facility] Specimen (Source) Anatomical Collection Method Collection Time Re ceived Time Location / / Volume Laterality 08/02/2011 10:07 AM MANUFACTURERS SERVICE REPRESENTATIVE Historical Provider LAB BLOOD ADD-ON Performing Organization Address City/State/ZIP Code Phon e Number [facility] Triglycerides (08/02/2011 10:07 AM MANUFACTURERS SERVICE REPRESENTATIVE) P athologist Signature Triglycerides 139 MGDL [facility] Specimen (Source) Anatomical Collection Method Collection Time Re ceived Time Location / / Volume Laterality 08/02/2011 10:07 AM MANUFACTURERS SERVICE REPRESENTATIVE Narrative [facility] - 08/25/19 14 2:01 AM MANUFACTURERS SERVICE REPRESENTATIVE Fasting specimen Historical Provider LAB BLOOD ADD-ON Performing Organization Address City/State/ZIP Code Phon e Number [facility] Cholesterol, Total (08/02/2011 10:07 AM MANUFACTURERS SERVICE REPRESENTATIVE) P athologist Signature Cholestanol 207 MGDL [facility] Specimen (Source) Anatomical Collection Method Collection Time Re ceived Time Location / / Volume Laterality 08/02/2011 10:07 AM MANUFACTURERS SERVICE REPRESENTATIVE Narrative [facility] - 08/25/19 14 2:01 AM MANUFACTURERS SERVICE REPRESENTATIVE LDL Cholesterol is the primary guide to [...] (Prothrombin Time) with INR (08/02/2011 10:02 AM MANUFACTURERS SERVICE REPRESENTATIVE) P athologist Signature INR 2.31 [facility] Specimen (Source) Anatomical Collection Method Collection Time Re ceived Time Location / / Volume Laterality 08/02/2011 10:02 AM MANUFACTURERS SERVICE REPRESENTATIVE Historical Provider LAB BLOOD ADD-ON Performing Organization Address City/State/ZIP Code Phon e Number [facility] documented in this encounter Visit Diagnoses Not on filedocumented in this encounter
--- OUTSIDE RECORDS SUMMARY | 2022-05-25 21:15 | XMS_ITS | Encounter Summary ---
:1975 Author Organization [facility] Address [address] [place] [address] Care Team Providers Name Role Phone Unavailable Primary Care Provider Unavailable Encounter Details Date Type Department Care Team Description 02/28/2012 Hospital Encounter [facility] ANTICOAG [...] or relatives? How often do you attend spiritism or More than 4 times per year 05/04/2022 nondenominational services? Do you belong to any clubs or Yes 05/04/2022 organizations such as spiritism groups, unions, fraternal or athletic groups, or [...] at Date Recorded Female 05/03/2022 7:07 PM FANCY PACKER documented as of this encounter Plan of Treatment Upcoming Encounters Date Type Specialty Care Team Description 06/22/2022 Appointment Laboratory Medicine Rusty Vee M.D. 200 [place] [phone] 06/22/2022 Diagnostic Pulmonary Medicine Rusty Vee M.D. 200 [place] [phone] 06/22/2022 Diagnostic Pulmonary Medicine Rusty Vee M.D. [address] [place] [phone] 06/22/2022 Appointment Radiology Rusty Vee M.D. [address] [place] [phone] 06/23/2022 Clinical Communication Admitting/Central Scheduling 06/28/2022 Appointment Pulmonary Medicine Rusty Vee M.D. [address] [place] [phone] 06/28/2022 Appointment Pulmonary Medicine Rusty Vee M.D. [address] [place] [phone] documented as of this encounter Procedures Procedure Name Priority Date/Time Associated Comments Diagnosis PROTHROMBIN TIME Routine 02/28/2012 12:06 Results for this (PT), P PM CDT procedure are i n the results section. documented in this encounter Results PT (Prothrombin Time) with INR (02/28/2012 12:06 PM CDT) P athologist Signature INR 2.05 [facility] Specimen (Source) Anatomical Collection Method Collection Time Re ceived Time Location / / Volume Laterality 02/28/2012 12:06 PM CDT Historical Provider LAB BLOOD ADD-ON Performing Organization Address City/State/ZIP Code Phon e Number [facility] documented in this encounter Visit Diagnoses Not on filedocumented in this encounter
--- OUTSIDE RECORDS SUMMARY | 2022-05-25 21:15 | XMS_ITS | Encounter Summary ---
:1975 Author Organization [facility] Address [address] [place] [address] Care Team Providers Name Role Phone Unavailable Primary Care Provider Unavailable Encounter Details Date Type Department Care Team Description 03/27/2012 Hospital Encounter [facility] ANTICOAG Provider, His torical Social [...] Date Recorded Female 05/03/2022 7:07 PM FREIGHT FORWARDER documented as of this encounter Plan of Treatment Upcoming Encounters Date Type Specialty Care Team Description 06/22/2022 Appointment Laboratory Medicine Rusty Vee M.D. 200 [place] [phone] 06/22/2022 Diagnostic Pulmonary Medicine Rusty Vee M.D. 200 [place] [phone] 06/22/2022 Diagnostic Pulmonary Medicine Rusty Vee M.D. [address] [place] [phone] 06/22/2022 Appointment Radiology Rusty Vee M.D. [address] [place] [phone] 06/23/2022 Clinical Communication Admitting/Central Scheduling 06/28/2022 Appointment Pulmonary Medicine Rusty Vee M.D. [address] [place] [phone] 06/28/2022 Appointment Pulmonary Medicine Rusty Vee M.D. [address] [place] [phone] documented as of this encounter Procedures Procedure Name Priority Date/Time Associated Comments Diagnosis PROTHROMBIN TIME Routine 03/27/2012 9:28 AM Resul ts for this (PT), P CDT procedure are i n the results section. documented in this encounter Results PT (Prothrombin Time) with INR (03/27/2012 9:28 AM CDT) P athologist Signature INR 1.75 [facility] Specimen (Source) Anatomical Collection Method Collection Time Re ceived Time Location / / Volume Laterality 03/27/2012 9:28 AM CDT Historical Provider LAB BLOOD ADD-ON Performing Organization Address City/State/ZIP Code Phon e Number [facility] documented in this encounter Visit Diagnoses Not on filedocumented in this encounter
--- OUTSIDE RECORDS SUMMARY | 2022-05-25 21:15 | XMS_ITS | Encounter Summary ---
:1975 Author Organization [facility] Address [address] [place] [address] Care Team Providers Name Role Phone Unavailable Primary Care Provider Unavailable Encounter Details Date Type Department Care Team Description 11/08/2011 Hospital Encounter [facility] ANTICOAG [...] at Date Recorded Female 05/03/2022 7:07 PM ARTIFICIAL CHERRY MAKER documented as of this encounter Plan of Treatment Upcoming Encounters Date Type Specialty Care Team Description 06/22/2022 Appointment Laboratory Medicine Rusty Vee M.D. 200 [place] [phone] 06/22/2022 Diagnostic Pulmonary Medicine Rusty Vee M.D. 200 [place] [phone] 06/22/2022 Diagnostic Pulmonary Medicine Rusty Vee M.D. [address] [place] [phone] 06/22/2022 Appointment Radiology Rusty Vee M.D. [address] [place] [phone] 06/23/2022 Clinical Communication Admitting/Central Scheduling 06/28/2022 Appointment Pulmonary Medicine Rusty Vee M.D. [address] [place] [phone] 06/28/2022 Appointment Pulmonary Medicine Rusty Vee M.D. [address] [place] [phone] documented as of this encounter Procedures Procedure Name Priority Date/Time Associated Comments Diagnosis PROTHROMBIN TIME Routine 11/08/2011 9:55 AM Resul ts for this (PT), P CDT procedure are i n the results section. documented in this encounter Results PT (Prothrombin Time) with INR (11/08/2011 9:55 AM CDT) P athologist Signature INR 2.62 [facility] Specimen (Source) Anatomical Collection Method Collection Time Re ceived Time Location / / Volume Laterality 11/08/2011 9:55 AM CDT Historical Provider LAB BLOOD ADD-ON Performing Organization Address City/State/ZIP Code Phon e Number [facility] documented in this encounter Visit Diagnoses Not on filedocumented in this encounter
--- OUTSIDE RECORDS SUMMARY | 2022-05-25 21:15 | XMS_ITS | Encounter Summary ---
:1975 Author Organization [facility] Address [address] [place] [address] Care Team Providers Name Role Phone Unavailable Primary Care Provider Unavailable Encounter Details Date Type Department Care Team Description 12/27/2011 Hospital Encounter [facility] ANTICOAG Provider, [...] at Date Recorded Female 05/03/2022 7:07 PM PRINTING TABLE WORKER documented as of this encounter Plan of Treatment Upcoming Encounters Date Type Specialty Care Team Description 06/22/2022 Appointment Laboratory Medicine Rusty Vee M.D. 200 [place] [phone] 06/22/2022 Diagnostic Pulmonary Medicine Rusty Vee M.D. 200 [place] [phone] 06/22/2022 Diagnostic Pulmonary Medicine Rusty Vee M.D. [address] [place] [phone] 06/22/2022 Appointment Radiology Rusty Vee M.D. [address] [place] [phone] 06/23/2022 Clinical Communication Admitting/Central Scheduling 06/28/2022 Appointment Pulmonary Medicine Rusty Vee M.D. [address] [place] [phone] 06/28/2022 Appointment Pulmonary Medicine Rutsy Vee M.D. [address] [place] [phone] documented as of this encounter Procedures Procedure Name Priority Date/Time Associated Comments Diagnosis PROTHROMBIN TIME Routine 12/27/2011 10:20 Results for this (PT), P AM CDT procedure are i n the results section. documented in this encounter Results PT (Prothrombin Time) with INR (12/27/2011 10:20 AM CDT) P athologist Signature INR 2.26 [facility] Specimen (Source) Anatomical Collection Method Collection Time Re ceived Time Location / / Volume Laterality 12/27/2011 10:20 AM CDT Historical Provider LAB BLOOD ADD-ON Performing Organization Address City/State/ZIP Code Phon e Number [facility] documented in this encounter Visit Diagnoses Not on filedocumented in this encounter
--- OUTSIDE RECORDS SUMMARY | 2022-05-25 21:15 | XMS_ITS | Encounter Summary ---
:1975 Author Organization [facility] Address [address] [place] [address] Care Team Providers Name Role Phone Unavailable Primary Care Provider Unavailable Encounter Details Date Type Department Care Team Description 08/30/[address] [facility] ANTICOAG Provider, His [...] at Date Recorded Female 05/03/2022 7:07 PM SPECIFICATION MANAGER documented as of this encounter Plan of Treatment Upcoming Encounters Date Type Specialty Care Team Description 06/22/2022 Appointment Laboratory Medicine Rusty Vee M.D. 200 [place] [phone] 06/22/2022 Diagnostic Pulmonary Medicine Rusty Vee M.D. 200 [place] [phone] 06/22/2022 Diagnostic Pulmonary Medicine Rusty Vee M.D. [address] [place] [phone] 06/22/2022 Appointment Radiology Rusty Vee M.D. [address] [place] [phone] 06/23/2022 Clinical Communication Admitting/Central Scheduling 06/28/2022 Appointment Pulmonary Medicine Rusty Vee M.D. [address] [place] [phone] 06/28/2022 Appointment Pulmonary Medicine Rusty Vee M.D. [address] [place] [phone] documented as of this encounter Procedures Procedure Name Priority Date/Time Associated Comments Diagnosis PROTHROMBIN TIME Routine 08/30/2011 9:54 AM Resul ts for this (PT), P SPECIFICATION MANAGER procedure are i n the results section. documented in this encounter Results PT (Prothrombin Time) with INR (08/30/2011 9:54 AM SPECIFICATION MANAGER) P athologist Signature INR 2.50 [facility] Specimen (Source) Anatomical Collection Method Collection Time Re ceived Time Location / / Volume Laterality 08/30/2011 9:54 AM SPECIFICATION MANAGER Historical Provider LAB BLOOD ADD-ON Performing Organization Address City/State/ZIP Code Phon e Number [facility] documented in this encounter Visit Diagnoses Not on filedocumented in this encounter
--- OUTSIDE RECORDS SUMMARY | 2022-05-25 21:15 | XMS_ITS | Encounter Summary ---
:1975 Author Organization [facility] Address [address] [place] [address] Care Team Providers Name Role Phone Unavailable Primary Care Provider Unavailable Encounter Details Date Type Department Care Team Description 12/23/2011 Hospital Encounter [facility] Valentina Abdi, RMichaelN. 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 - 12/23/2011 12:00 AM CDT [id number] Situation/What is the patients concern/need: Pt calling [...] Pt verbalized understanding of all information. Source: [facility] RWHXTRANSXRTFSYS Document Id: [id number] Electronically signed by Lay, [facility] Mysql Database Developer [id number] at 11/26/2016 6:31 PM CDT documented in this encounter Plan of Treatment Upcoming Encounters Date Type Specialty Care Team Description 06/22/2022 Appointment Laboratory Medicine Rusty Vee M.D. [address] [place] [phone] 06/22/2022 Diagnostic Pulmonary Medicine Rusty Vee M.D. [address] [place] [phone] 06/22/2022 Diagnostic Pulmonary Medicine Rusty Vee M.D. [address] [place] [phone] 06/22/2022 Appointment Radiology Rusty Vee M.D. [address] [place] [phone] 06/23/2022 Clinical Communication Admitting/Central Scheduling 06/28/2022 Appointment Pulmonary Medicine Rusty Vee M.D. [address] [place] [phone] 06/28/2022 Appointment Pulmonary Medicine Rusty Vee M.D. [address] [place] [phone] documented as of this encounter Visit Diagnoses Not on filedocumented in this encounter
--- OUTSIDE RECORDS SUMMARY | 2022-05-25 21:15 | XMS_ITS | Encounter Summary ---
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 200 [place] [phone] 06/22/2022 Diagnostic Pulmonary Medicine Rusty Vee M.D. 200 [place] [phone] 06/22/2022 Diagnostic Pulmonary Medicine Rusty Vee M.D. [address] [place] [phone] 06/22/2022 Appointment Radiology Rusty Vee M.D. [address] [place] [phone] 06/23/2022 Clinical Communication Admitting/Central Scheduling 06/28/2022 Appointment Pulmonary Medicine Rusty Vee M.D. [address] [place] [phone] 06/28/2022 Appointment Pulmonary Medicine Rusty Vee M.D. [address] [place] [phone] documented as of this encounter Procedures Procedure Name Priority Date/Time Associated Comments Diagnosis PROTHROMBIN TIME Routine 01/24/2012 9:51 AM Resul ts for this (PT), P CDT procedure are i n the results section. documented in this encounter Results PT (Prothrombin Time) with INR (01/24/2012 9:51 AM CDT) P athologist Signature INR 1.94 [facility] Specimen (Source) Anatomical Collection Method Collection Time Re ceived Time Location / / Volume Laterality 01/24/2012 9:51 AM CDT Historical Provider LAB BLOOD ADD-ON Performing Organization Address City/State/ZIP Code Phon e Number [facility] documented in this encounter Visit Diagnoses Not on filedocumented in this encounter
--- OUTSIDE RECORDS SUMMARY | 2022-05-25 21:16 | XMS_ITS | Encounter Summary ---
:1975 Author Organization [facility] Address [address] [place] [address] Care Team Providers Name Role Phone Unavailable Primary Care Provider Unavailable Encounter Details Date Type Department Care Team Description 01/18/2011 Hospital Encounter 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 200 [place] [phone] 06/22/2022 Diagnostic Pulmonary Medicine Rusty Vee M.D. 200 [place] [phone] 06/22/2022 Diagnostic Pulmonary Medicine Rusty Vee M.D. [address] [place] [phone] 06/22/2022 Appointment Radiology Rusty Vee M.D. [address] [place] [phone] 06/23/2022 Clinical Communication Admitting/Central Scheduling 06/28/2022 Appointment Pulmonary Medicine Rusty Vee M.D. [address] [place] [phone] 06/28/2022 Appointment Pulmonary Medicine Rusty Vee M.D. [address] [place] [phone] documented as of this encounter Visit Diagnoses Not on filedocumented in this encounter
--- OUTSIDE RECORDS SUMMARY | 2022-05-25 21:16 | XMS_ITS | Encounter Summary ---
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 200 [place] [phone] 06/22/2022 Diagnostic Pulmonary Medicine Rusty Vee M.D. 200 [place] [phone] 06/22/2022 Diagnostic Pulmonary Medicine Rusty Vee M.D. [address] [place] [phone] 06/22/2022 Appointment Radiology Rusty Vee M.D. [address] [place] [phone] 06/23/2022 Clinical Communication Admitting/Central Scheduling 06/28/2022 Appointment Pulmonary Medicine Rusty Vee M.D. [address] [place] [phone] 06/28/2022 Appointment Pulmonary Medicine Rusty Vee M.D. [address] [place] [phone] documented as of this encounter Procedures Procedure Name Priority Date/Time Associated Comments Diagnosis PROTHROMBIN TIME Routine 07/05/2011 10:15 Results for this (PT), P AM AUTO CLUTCH SPECIALIST procedure are i n the results section. documented in this encounter Results PT (Prothrombin Time) with INR (07/05/2011 10:15 AM AUTO CLUTCH SPECIALIST) P athologist Signature INR 1.99 [facility] Specimen (Source) Anatomical Collection Method Collection Time Re ceived Time Location / / Volume Laterality 07/05/2011 10:15 AM AUTO CLUTCH SPECIALIST Historical Provider LAB BLOOD ADD-ON Performing Organization Address City/State/ZIP Code Phon e Number [facility] documented in this encounter Visit Diagnoses Not on filedocumented in this encounter
--- OUTSIDE RECORDS SUMMARY | 2022-05-25 21:16 | XMS_ITS | Encounter Summary ---
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 200 [place] [phone] 06/22/2022 Diagnostic Pulmonary Medicine Rusty Vee M.D. 200 [place] [phone] 06/22/2022 Diagnostic Pulmonary Medicine Rusty Vee M.D. [address] [place] [phone] 06/22/2022 Appointment Radiology Rusty Vee M.D. [address] [place] [phone] 06/23/2022 Clinical Communication Admitting/Central Scheduling 06/28/2022 Appointment Pulmonary Medicine Rusty Vee M.D. [address] [place] [phone] 06/28/2022 Appointment Pulmonary Medicine Rusty Vee M.D. [address] [place] [phone] documented as of this encounter Visit Diagnoses Not on filedocumented in this encounter
--- OUTSIDE RECORDS SUMMARY | 2022-05-25 21:16 | XMS_ITS | Encounter Summary ---
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 200 [place] [phone] 06/22/2022 Diagnostic Pulmonary Medicine Rusty Vee M.D. 200 [place] [phone] 06/22/2022 Diagnostic Pulmonary Medicine Rusty Vee M.D. [address] [place] [phone] 06/22/2022 Appointment Radiology Rusty Vee M.D. [address] [place] [phone] 06/23/2022 Clinical Communication Admitting/Central Scheduling 06/28/2022 Appointment Pulmonary Medicine Rusty Vee M.D. [address] [place] [phone] 06/28/2022 Appointment Pulmonary Medicine Rusty Vee M.D. [address] [place] [phone] documented as of this encounter Visit Diagnoses Not on filedocumented in this encounter
--- OUTSIDE RECORDS SUMMARY | 2022-05-25 21:16 | XMS_ITS | Encounter Summary ---
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 200 [place] [phone] 06/22/2022 Diagnostic Pulmonary Medicine Rusty Vee M.D. 200 [place] [phone] 06/22/2022 Diagnostic Pulmonary Medicine Rusty Vee M.D. [address] [place] [phone] 06/22/2022 Appointment Radiology Rusty Vee M.D. [address] [place] [phone] 06/23/2022 Clinical Communication Admitting/Central Scheduling 06/28/2022 Appointment Pulmonary Medicine Rusty Vee M.D. [address] [place] [phone] 06/28/2022 Appointment Pulmonary Medicine Rusty Vee M.D. [address] [place] [phone] documented as of this encounter Visit Diagnoses Not on filedocumented in this encounter
--- OUTSIDE RECORDS SUMMARY | 2022-05-25 21:16 | XMS_ITS | Encounter Summary ---
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 200 [place] [phone] 06/22/2022 Diagnostic Pulmonary Medicine Rusty Vee M.D. 200 [place] [phone] 06/22/2022 Diagnostic Pulmonary Medicine Rusty Vee M.D. [address] [place] [phone] 06/22/2022 Appointment Radiology Rusty Vee M.D. [address] [place] [phone] 06/23/2022 Clinical Communication Admitting/Central Scheduling 06/28/2022 Appointment Pulmonary Medicine Rusty Vee M.D. [address] [place] [phone] 06/28/2022 Appointment Pulmonary Medicine Rusty Vee M.D. [address] [place] [phone] documented as of this encounter Visit Diagnoses Not on filedocumented in this encounter
--- OUTSIDE RECORDS SUMMARY | 2022-05-25 21:16 | XMS_ITS | Encounter Summary ---
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 200 [place] [phone] 06/22/2022 Diagnostic Pulmonary Medicine Rusty Vee M.D. 200 [place] [phone] 06/22/2022 Diagnostic Pulmonary Medicine Rusty Vee M.D. [address] [place] [phone] 06/22/2022 Appointment Radiology Rusty Vee M.D. [address] [place] [phone] 06/23/2022 Clinical Communication Admitting/Central Scheduling 06/28/2022 Appointment Pulmonary Medicine Rusty Vee M.D. [address] [place] [phone] 06/28/2022 Appointment Pulmonary Medicine Rusty Vee M.D. [address] [place] [phone] documented as of this encounter Visit Diagnoses Not on filedocumented in this encounter
--- OUTSIDE RECORDS SUMMARY | 2022-05-25 21:16 | XMS_ITS | Encounter Summary ---
:1975 Author Organization [facility] Address [address] [place] [address] Care Team Providers Name Role Phone Unavailable Primary Care Provider Unavailable Encounter Details Date Type Department Care Team Description 07/25/2011 Hospital En[facility] OBGYN Provider, Histor ical Social History Tobacco [...] at Date Recorded Female 05/03/2022 7:[address] REFEREE documented as of this encounter Progress Notes Conversion, Historical Provider Ser - 07/25/2011 3:30 PM CST [id number] Hue is a 36 year old year [...] walks every night through the halls of [employer], where she lives alone. Is on schedule [...] PO TABS Oral Take by mouth. 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 Internal exam deferred this [...] lifelong Coumadin with monthly INR checks Source: [facility] RWHXTRANSXRTFSYS Document Id: [id number] documented in this encounter Plan of Treatment Upcoming Encounters Date Type Specialty Care Team Description 06/22/2022 Appointment Laboratory Medicine Rusty Vee M.D. [address] [place] [phone] 06/22/2022 Diagnostic Pulmonary Medicine Rusty Vee M.D. [address] [place] [phone] 06/22/2022 Diagnostic Pulmonary Medicine Rusty Vee M.D. [address] [place] [phone] 06/22/2022 Appointment Radiology Rusty Vee M.D. [address] [place] [phone] 06/23/2022 Clinical Communication Admitting/Central Scheduling 06/28/2022 Appointment Pulmonary Medicine Rusty Vee M.D. [address] [place] [phone] 06/28/2022 Appointment Pulmonary Medicine Rusty Vee M.D. [address] [place] [phone] documented as of this encounter Visit Diagnoses Not on filedocumented in this encounter
--- OUTSIDE RECORDS SUMMARY | 2022-05-25 21:16 | XMS_ITS | Encounter Summary ---
:1975 Author Organization [facility] Address [address] [place] [address] Care Team Providers Name Role Phone Unavailable Primary Care Provider Unavailable Encounter Details Date Type Department Care Team Description 10/05/2010 Hospital Encounter [facility] ANTICOAG Provider, [...] Date Recorded Female 05/03/2022 7:07 PM DIRECTOR REPORT documented as of this encounter Plan of Treatment Upcoming Encounters Date Type Specialty Care Team Description 06/22/2022 Appointment Laboratory Medicine Rsuty Vee M.D. 200 [place] [phone] 06/22/2022 Diagnostic Pulmonary Medicine Rusty Vee M.D. 200 [place] [phone] 06/22/2022 Diagnostic Pulmonary Medicine Rusty Vee M.D. [address] [place] [phone] 06/22/2022 Appointment Radiology Rusty Vee M.D. [address] [place] [phone] 06/23/2022 Clinical Communication Admitting/Central Scheduling 06/28/2022 Appointment Pulmonary Medicine Rusty Vee M.D. [address] [place] [phone] 06/28/2022 Appointment Pulmonary Medicine Rusty Vee M.D. [address] [place] [phone] documented as of this encounter Visit Diagnoses Not on filedocumented in this encounter
--- OUTSIDE RECORDS SUMMARY | 2022-05-25 21:16 | XMS_ITS | Encounter Summary ---
:1975 Author Organization [facility] Address [address] [place] [address] Care Team Providers Name Role Phone Unavailable Primary Care Provider Unavailable Encounter Details Date Type Department Care Team Description 05/10/2011 Hospital Encounter [facility] ANTICOAG Provider, His torical Social [...] at Date Recorded Female 05/03/2022 7:07 PM LEAF STICKER documented as of this encounter Plan of Treatment Upcoming Encounters Date Type Specialty Care Team Description 06/22/2022 Appointment Laboratory Medicine Rusty Vee M.D. 200 [place] [phone] 06/22/2022 Diagnostic Pulmonary Medicine Rusty Vee M.D. 200 [place] [phone] 06/22/2022 Diagnostic Pulmonary Medicine Rusty Vee M.D. [address] [place] [phone] 06/22/2022 Appointment Radiology Rusty Vee M.D. [address] [place] [phone] 06/23/2022 Clinical Communication Admitting/Central Scheduling 06/28/2022 Appointment Pulmonary Medicine Rusty Vee M.D. [address] [place] [phone] 06/28/2022 Appointment Pulmonary Medicine Rusty Vee M.D. [address] [place] [phone] documented as of this encounter Visit Diagnoses Not on filedocumented in this encounter
--- OUTSIDE RECORDS SUMMARY | 2022-05-25 21:16 | XMS_ITS | Encounter Summary ---
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 200 [place] [phone] 06/22/2022 Diagnostic Pulmonary Medicine Rusty Vee M.D. 200 [place] [phone] 06/22/2022 Diagnostic Pulmonary Medicine Rusty Vee M.D. [address] [place] [phone] 06/22/2022 Appointment Radiology Rusty Vee M.D. [address] [place] [phone] 06/23/2022 Clinical Communication Admitting/Central Scheduling 06/28/2022 Appointment Pulmonary Medicine Rusty Vee M.D. [address] [place] [phone] 06/28/2022 Appointment Pulmonary Medicine Rsuty Vee M.D. [address] [place] [phone] documented as of this encounter Visit Diagnoses Not on filedocumented in this encounter
--- OUTSIDE RECORDS SUMMARY | 2022-05-25 21:16 | XMS_ITS | Encounter Summary ---
:1975 Author Organization [facility] Address [address] [place] [address] Care Team Providers Name Role Phone Unavailable Primary Care Provider Unavailable Encounter Details Date Type Department Care Team Description 11/29/2010 Hospital Encounter [facility] OBGYN Provider, Histor ical Social History [...] Date Recorded Female 05/03/2022 7:07 PM INSURANCE ATTORNEY documented as of this encounter Miscellaneous Notes Telephone Encounter - Conversion, Historical Provider Ser - 11/29/2010 12:00 AM CDT [id number] Patient called and stated she missed her period, she was supposed to get it last Monday and stillhas not had a period. Please contact patient back at [phone]. Thank you Source: [facility] RWHXTRANSXRTFSYS Document Id: [id number] Telephone Encounter - Ximena Jim R.N. - 11/29/2010 12:00 AM CDT [id number] TELEPHONE TRIAGE ENCOUNTER FORM Date: 11/29/2010 PCP: Cotton MD Patient Name: Hue Medina Gender: female : 1975 Age: [age] year old Time: 8:07 AM Phone Numbers: [phone] (home) Pharmacy: [facility] [address] [facility] Presenting Problem: Missed period [...] history and diagnosis of irregular menses. Source: [facility] RWMCHXTRANSXRTFSYS Document Id: [id number] Electronically signed by Conversion, [facility] Business Development Consultant [id number] at 11/26/2016 10:54 PM CDT documented in this encounter Plan of Treatment Upcoming Encounters Date Type Specialty Care Team Description 06/22/2022 Appointment Laboratory Medicine Rusty Vee M.D. [address] [place] [phone] 06/22/2022 Diagnostic Pulmonary Medicine Rusty Vee M.D. [address] [place] [phone] 06/22/2022 Diagnostic Pulmonary Medicine Rusty Vee M.D. [address] [place] [phone] 06/22/2022 Appointment Radiology Rusty Vee M.D. [address] [place] [phone] 06/23/2022 Clinical Communication Admitting/Central Scheduling 06/28/2022 Appointment Pulmonary Medicine Rusty Vee M.D. [address] [place] [phone] 06/28/2022 Appointment Pulmonary Medicine Rusty Vee M.D. [address] [place] [phone] documented as of this encounter Visit Diagnoses Not on filedocumented in this encounter
--- OUTSIDE RECORDS SUMMARY | 2022-05-25 21:16 | XMS_ITS | Encounter Summary ---
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 200 [place] [phone] 06/22/2022 Diagnostic Pulmonary Medicine Rusty Vee M.D. 200 [place] [phone] 06/22/2022 Diagnostic Pulmonary Medicine Rusty Vee M.D. [address] [place] [phone] 06/22/2022 Appointment Radiology Rusty Vee M.D. [address] [place] [phone] 06/23/2022 Clinical Communication Admitting/Central Scheduling 06/28/2022 Appointment Pulmonary Medicine Rusty Vee M.D. [address] [place] [phone] 06/28/2022 Appointment Pulmonary Medicine Rusty Vee M.D. [address] [place] [phone] documented as of this encounter Visit Diagnoses Not on filedocumented in this encounter
--- OUTSIDE RECORDS SUMMARY | 2022-05-25 21:16 | XMS_ITS | Encounter Summary ---
:1975 Author Organization [facility] Address [address] [place] [address] Care Team Providers Name Role Phone Unavailable Primary Care Provider Unavailable Encounter Details Date Type Department Care Team Description 04/07/2011 Hospital Encounter [facility] Marsha Garibay M.D. 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 Source: [facility] Document Id: [id number] Telephone Encounter - Fina Peres R.N. - 04/07/2011 12:00 AM CDT [id number] Last visit was 07/19/10 Prescription approved per RN refill protocol. BP Readings from Last 1 Encounters: 09/24/10 92/54 INR 2.76 03/15/2011 Source: [facility] Document Id: [id number] Electronically signed by Conversion, [facility] Music Leader [id number] at 11/26/2016 11:21 PM CDT documented in this encounter Plan of Treatment Upcoming Encounters Date Type Specialty Care Team Description 06/22/2022 Appointment Laboratory Medicine Rusty Vee M.D. [address] [place] [phone] 06/22/2022 Diagnostic Pulmonary Medicine Rusty Vee M.D. [address] [place] [phone] 06/22/2022 Diagnostic Pulmonary Medicine Rusty Vee M.D. [address] [place] [phone] 06/22/2022 Appointment Radiology Rusty Vee M.D. [address] [place] [phone] 06/23/2022 Clinical Communication Admitting/Central Scheduling 06/28/2022 Appointment Pulmonary Medicine Rusty Vee M.D. [address] [place] [phone] 06/28/2022 Appointment Pulmonary Medicine Rusty Vee M.D. [address] [place] [phone] documented as of this encounter Visit Diagnoses Not on filedocumented in this encounter
--- OUTSIDE RECORDS SUMMARY | 2022-05-25 21:16 | XMS_ITS | Encounter Summary ---
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 - 01/18/2011 12:00 AM CDT [id number] Situation/What is the patients concern/need: Irregular period [...] Best number(s) to reach patient: ' Source: [facility] RWHXTRANSXRTFSYS Document Id: [id number] Electronically signed by Lay [facility] Manager [id number] at 11/27/2016 4:33 AM CDT documented in this encounter Plan of Treatment Upcoming Encounters Date Type Specialty Care Team Description 06/22/2022 Appointment Laboratory Medicine Rusty Vee M.D. [address] [place] [phone] 06/22/2022 Diagnostic Pulmonary Medicine Rusty Vee M.D. [address] [place] [phone] 06/22/2022 Diagnostic Pulmonary Medicine Rusty Vee M.D. [address] [place] [phone] 06/22/2022 Appointment Radiology Rusty Vee M.D. [address] [place] [phone] 06/23/2022 Clinical Communication Admitting/Central Scheduling 06/28/2022 Appointment Pulmonary Medicine Rusty Vee M.D. [address] [place] [phone] 06/28/2022 Appointment Pulmonary Medicine Rusty Vee M.D. [address] [place] [phone] documented as of this encounter Visit Diagnoses Not on filedocumented in this encounter
--- OUTSIDE RECORDS SUMMARY | 2022-05-25 21:16 | XMS_ITS | Encounter Summary ---
:1975 Author Organization [facility] Address [address] [place] [address] Care Team Providers Name Role Phone Unavailable Primary Care Provider Unavailable Encounter Details Date Type Department Care Team Description 10/12/2010 Hospital Encounter [facility] ANTICOAG Provider, His torical Social [...] Date Recorded Female 05/03/2022 7:07 PM PROCESS MECHANIC documented as of this encounter Plan of Treatment Upcoming Encounters Date Type Specialty Care Team Description 06/22/2022 Appointment Laboratory Medicine Rusty Vee M.D. 200 [place] [phone] 06/22/2022 Diagnostic Pulmonary Medicine Rusty Vee M.D. 200 [place] [phone] 06/22/2022 Diagnostic Pulmonary Medicine Rusty Vee M.D. [address] [place] [phone] 06/22/2022 Appointment Radiology Rusty Vee M.D. [address] [place] [phone] 06/23/2022 Clinical Communication Admitting/Central Scheduling 06/28/2022 Appointment Pulmonary Medicine Rusty Vee M.D. [address] [place] [phone] 06/28/2022 Appointment Pulmonary Medicine Rusty Vee M.D. [address] [place] [phone] documented as of this encounter Visit Diagnoses Not on filedocumented in this encounter
--- OUTSIDE RECORDS SUMMARY | 2022-05-25 21:16 | XMS_ITS | Encounter Summary ---
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 200 [place] [phone] 06/22/2022 Diagnostic Pulmonary Medicine Rusty Vee M.D. 200 [place] [phone] 06/22/2022 Diagnostic Pulmonary Medicine Rusty Vee M.D. [address] [place] [phone] 06/22/2022 Appointment Radiology Rusty Vee M.D. [address] [place] [phone] 06/23/2022 Clinical Communication Admitting/Central Scheduling 06/28/2022 Appointment Pulmonary Medicine Rusty Vee M.D. [address] [place] [phone] 06/28/2022 Appointment Pulmonary Medicine Rusty Vee M.D. [address] [place] [phone] documented as of this encounter Visit Diagnoses Not on filedocumented in this encounter
--- OUTSIDE RECORDS SUMMARY | 2022-05-25 21:16 | XMS_ITS | Encounter Summary ---
:1975 Author Organization [facility] Address [address] [place] [address] Care Team Providers Name Role Phone Unavailable Primary Care Provider Unavailable Encounter Details Date Type Department Care Team Description 09/21/2010 Hospital Encounter [facility] Provider, [...] at Date Recorded Female 05/03/2022 7:07 PM ELECTROLYSIS ENGINEER documented as of this encounter Miscellaneous Notes Miscellaneous - Cristiane Echavarria P.A.-C. - 09/21/2010 12:45 PM CDT [id number] [facility] [address] [facility] [address] September 28, 2010 Fabiola Medina [address] [place] [address] [facility] Dear Hue Baron's follow up thyroid test was normal. Results for orders placed in visit on 09/21/10 TSH WITH FREE T4 REFLEX Component Value Range TSH 3.52 0.4 - 5.0 (mU/L) Thank you for allowing me to participate in your care. If you have any further questions or problems, please contact me at [phone]. Sincerely, [facility] [address] [place] [address] Source: [facility] RWHXTRANSXRTFSYS Document Id: [id number] Electronically signed by Lay, [facility] Heading Pinner [id number] at 11/27/2016 3:53 AM CDT documented in this encounter Plan of Treatment Upcoming Encounters Date Type Specialty Care Team Description 06/22/2022 Appointment Laboratory Medicine Rusty Vee M.D. [address] [place] [phone] 06/22/2022 Diagnostic Pulmonary Medicine Rusty Vee M.D. [address] [place] [phone] 06/22/2022 Diagnostic Pulmonary Medicine Rusty Vee M.D. [address] [place] [phone] 06/22/2022 Appointment Radiology Rusty Vee M.D. [address] [place] [phone] 06/23/2022 Clinical Communication Admitting/Central Scheduling 06/28/2022 Appointment Pulmonary Medicine Rusty Vee M.D. [address] [place] [phone] 06/28/2022 Appointment Pulmonary Medicine Rusty Vee M.D. [address] [place] [phone] documented as of this encounter Visit Diagnoses Not on filedocumented in this encounter
--- OUTSIDE RECORDS SUMMARY | 2022-05-25 21:16 | XMS_ITS | Encounter Summary ---
:1975 Author Organization [facility] Address [address] [place] [address] Care Team Providers Name Role Phone Unavailable Primary Care Provider Unavailable Encounter Details Date Type Department Care Team Description 04/22/2011 Hospital Encounter [facility] Javier Parks, P.AMichael-C. 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 [facility] Document Id: [id number] Telephone Encounter - Jazz Hunt R.N. - 04/22/2011 12:00 AM CDT [id number] Last visit: BP Readings from Last 1 Encounters: 09/24/10 92/54 Prescription approved per RN refill protocol Hypercholesterolemia Labs: - not on meds Source: [facility] Document Id: [id number] Electronically signed by Conversion, [facility] Chief Lifestyle Officer [id number] at 11/27/2016 5:02 AM CDT documented in this encounter Plan of Treatment Upcoming Encounters Date Type Specialty Care Team Description 06/22/2022 Appointment Laboratory Medicine Rusty Vee M.D. [address] [place] [phone] 06/22/2022 Diagnostic Pulmonary Medicine Rusty Vee M.D. [address] [place] [phone] 06/22/2022 Diagnostic Pulmonary Medicine Rusty Vee M.D. [address] [place] [phone] 06/22/2022 Appointment Radiology Rusty Vee M.D. [address] [place] [phone] 06/23/2022 Clinical Communication Admitting/Central Scheduling 06/28/2022 Appointment Pulmonary Medicine Rusty Vee M.D. [address] [place] [phone] 06/28/2022 Appointment Pulmonary Medicine Rusty Vee M.D. [address] [place] [phone] documented as of this encounter Visit Diagnoses Not on filedocumented in this encounter
--- OUTSIDE RECORDS SUMMARY | 2022-05-25 21:16 | XMS_ITS | Encounter Summary ---
:1975 Author Organization [facility] Address [address] [place] [address] Care Team Providers Name Role Phone Unavailable Primary Care Provider Unavailable Encounter Details Date Type Department Care Team Description 09/24/2010 Hospital Encounter [facility] Morteza Shaver M.D. [address] [place] [phone] (Wo rk) Social History Tobacco Use Types [...] at Date Recorded Female 05/03/2022 7:07 PM CREDIT COLLECTIONS REP documented as of this encounter Progress Notes Morteza Shaver M.D. - 09/24/2010 2:45 PM CDT [id number] FOLLOW-UP: Hue presents today for follow-up of recent urgent care visit at [facility] on 09/21. She presented with bronchitis of [...] 626.4W PSH: Past Surgical History Procedure Date Rw general [...] symptoms or any new concerning symptoms. Source: [facility] Document Id: [id number] Electronically signed by Lay [facility] Opal Miner [id number] at 11/27/2016 1:44 AM CDT documented in this encounter Plan of Treatment Upcoming Encounters Date Type Specialty Care Team Description 06/22/2022 Appointment Laboratory Medicine Rusty Vee M.D. [address] [place] [phone] 06/22/2022 Diagnostic Pulmonary Medicine Rusty Vee M.D. [address] [place] [phone] 06/22/2022 Diagnostic Pulmonary Medicine Rusty Vee M.D. [address] [place] [phone] 06/22/2022 Appointment Radiology Rusty Vee M.D. [address] [place] [phone] 06/23/2022 Clinical Communication Admitting/Central Scheduling 06/28/2022 Appointment Pulmonary Medicine Rusty Vee M.D. [address] [place] [phone] 06/28/2022 Appointment Pulmonary Medicine Rutsy Vee M.D. [address] [place] [phone] documented as of this encounter Visit Diagnoses Not on filedocumented in this encounter
--- OUTSIDE RECORDS SUMMARY | 2022-05-25 21:16 | XMS_ITS | Encounter Summary ---
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 200 [place] [phone] 06/22/2022 Diagnostic Pulmonary Medicine Rusty Vee M.D. 200 [place] [phone] 06/22/2022 Diagnostic Pulmonary Medicine Rusty Vee M.D. [address] [place] [phone] 06/22/2022 Appointment Radiology Rusty Vee M.D. [address] [place] [phone] 06/23/2022 Clinical Communication Admitting/Central Scheduling 06/28/2022 Appointment Pulmonary Medicine Rusty Vee M.D. [address] [place] [phone] 06/28/2022 Appointment Pulmonary Medicine Rusty Vee M.D. [address] [place] [phone] documented as of this encounter Visit Diagnoses Not on filedocumented in this encounter
--- OUTSIDE RECORDS SUMMARY | 2022-05-25 21:16 | XMS_ITS | Encounter Summary ---
:1975 Author Organization [facility] Address [address] [place] [address] Care Team Providers Name Role Phone Unavailable Primary Care Provider Unavailable Encounter Details Date Type Department Care Team Description 09/22/2010 Hospital Encounter [facility] Antonia Jenkins R.N. Social History Tobacco [...] at Date Recorded Female 05/03/2022 7:07 PM PARA PROFESSIONAL documented as of this encounter Plan of Treatment Upcoming Encounters Date Type Specialty Care Team Description 06/22/2022 Appointment Laboratory Medicine Rusty Vee M.D. 200 [place] [phone] 06/22/2022 Diagnostic Pulmonary Medicine Rusty Vee M.D. 200 [place] [phone] 06/22/2022 Diagnostic Pulmonary Medicine Rusty Vee M.D. [address] [place] [phone] 06/22/2022 Appointment Radiology Rusty Vee M.D. [address] [place] [phone] 06/23/2022 Clinical Communication Admitting/Central Scheduling 06/28/2022 Appointment Pulmonary Medicine Rusty Vee M.D. [address] [place] [phone] 06/28/2022 Appointment Pulmonary Medicine Rusty Vee M.D. [address] [place] [phone] documented as of this encounter Visit Diagnoses Not on filedocumented in this encounter
--- OUTSIDE RECORDS SUMMARY | 2022-05-25 21:16 | XMS_ITS | Encounter Summary ---
:1975 Author Organization [facility] Address [address] [place] [address] Care Team Providers Name Role Phone Unavailable Primary Care Provider Unavailable Encounter Details Date Type Department Care Team Description 07/18/2011 Hospital Encounter [facility] Marsha Garibay M.D. 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 Please close encounter when finished; thank you. Source: [facility] Document Id: [id number] Telephone Encounter - Mirella Johnson R.N. - 07/18/2011 12:00 AM TANK ASSEMBLER [id number] Last visit: BP Readings from Last 1 Encounters: 09/24/10 92/54 Unable to approve medication per the RN refill protocol due to: - Incomplete labs with exclusionary diagnosis. PCP please review Hypercholesterolemia Labs: No results found for this basename: ast No results found for this basename: alt CHOL 218 07/20/2010 TRIG 87 07/20/2010 HDL 50 07/20/2010 LDL 151 07/20/2010 GLC 104 07/20/2010 [facility] Document Id: [id number] Electronically signed by Conversion, [facility] Electrical Journeyman [id number] at 11/26/2016 1:35 PM CDT documented in this encounter Plan of Treatment Upcoming Encounters Date Type Specialty Care Team Description 06/22/2022 Appointment Laboratory Medicine Rusty Vee M.D. [address] [place] [phone] 06/22/2022 Diagnostic Pulmonary Medicine Rusty Vee M.D. [address] [place] [phone] 06/22/2022 Diagnostic Pulmonary Medicine Rusty Vee M.D. [address] [place] [phone] 06/22/2022 Appointment Radiology Rusty Vee M.D. [address] [place] [phone] 06/23/2022 Clinical Communication Admitting/Central Scheduling 06/28/2022 Appointment Pulmonary Medicine Rusty Vee M.D. [address] [place] [phone] 06/28/2022 Appointment Pulmonary Medicine Rusty Vee M.D. [address] [place] [phone] documented as of this encounter Visit Diagnoses Not on filedocumented in this encounter
--- OUTSIDE RECORDS SUMMARY | 2022-05-25 21:16 | XMS_ITS | Encounter Summary ---
:1975 Author Organization [facility] Address [address] [place] [address] Care Team Providers Name Role Phone Unavailable Primary Care Provider Unavailable Encounter Details Date Type Department Care Team Description 05/17/2011 Hospital Encounter H[facility] Andrea Whipple M.D. 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 [address] [place] [phone] 06/22/2022 Diagnostic Pulmonary Medicine Rusty Vee M.D. [address] [place] [phone] 06/22/2022 Diagnostic Pulmonary Medicine Rusty Vee M.D. [address] [place] [phone] 06/22/2022 Appointment Radiology Rusty Vee M.D. [address] [place] [phone] 06/23/2022 Clinical Communication Admitting/Central Scheduling 06/28/2022 Appointment Pulmonary Medicine Rusty Vee M.D. [address] [place] [phone] 06/28/2022 Appointment Pulmonary Medicine Rusty Vee M.D. [address] [place] [phone] documented as of this encounter Visit Diagnoses Not on filedocumented in this encounter
--- OUTSIDE RECORDS SUMMARY | 2022-05-25 21:16 | XMS_ITS | Encounter Summary ---
:1975 Author Organization [facility] Address [address] [place] [address] Care Team Providers Name Role Phone Unavailable Primary Care Provider Unavailable Encounter Details Date Type Department Care Team Description 10/08/2010 Hospital Encounter [facility] Andrea Whipple M.D. 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 [address] [place] [phone] 06/22/2022 Diagnostic Pulmonary Medicine Rusty Vee M.D. [address] [place] [phone] 06/22/2022 Diagnostic Pulmonary Medicine Rusty Vee M.D. [address] [place] [phone] 06/22/2022 Appointment Radiology Rusty Vee M.D. [address] [place] [phone] 06/23/2022 Clinical Communication Admitting/Central Scheduling 06/28/2022 Appointment Pulmonary Medicine Rusty Vee M.D. [address] [place] [phone] 06/28/2022 Appointment Pulmonary Medicine Rusty Vee M.D. [address] [place] [phone] documented as of this encounter Visit Diagnoses Not on filedocumented in this encounter
--- OUTSIDE RECORDS SUMMARY | 2022-05-25 21:16 | XMS_ITS | Encounter Summary ---
:1975 Author Organization [facility] Address [address] [place] [address] Care Team Providers Name Role Phone Unavailable Primary Care Provider Unavailable Encounter Details Date Type Department Care Team Description 12/28/2010 Hospital Encounter [facility] ANTICOAG Provider, His torical Social [...] at Date Recorded Female 05/03/2022 7:07 PM TENON MACHINE OPERATOR documented as of this encounter Plan of Treatment Upcoming Encounters Date Type Specialty Care Team Description 06/22/2022 Appointment Laboratory Medicine Rusty Vee M.D. 200 [place] [phone] 06/22/2022 Diagnostic Pulmonary Medicine Rusty Vee M.D. 200 [place] [phone] 06/22/2022 Diagnostic Pulmonary Medicine Rusty Vee M.D. [address] [place] [phone] 06/22/2022 Appointment Radiology Rusty Vee M.D. [address] [place] [phone] 06/23/2022 Clinical Communication Admitting/Central Scheduling 06/28/2022 Appointment Pulmonary Medicine Rusty Vee M.D. [address] [place] [phone] 06/28/2022 Appointment Pulmonary Medicine Rusty Vee M.D. [address] [place] [phone] documented as of this encounter Visit Diagnoses Not on filedocumented in this encounter
--- OUTSIDE RECORDS SUMMARY | 2022-05-25 21:16 | XMS_ITS | Encounter Summary ---
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 - 09/24/2010 4:00 PM CDT [id number] Hue Bellamy Carol [address] [facility] [phone] [facility] September 24, 2010 Dear Michael Hue Bellamy Carol: Your Lab today was: INR 4.38 09/24/2010 Your target range for your condition is: 2 - 3 You should:NO Coumadin until INR done on Monday09/27/2010 Your next lab appointment is scheduled for: 09/27/2010 Main [facility] labs must be drawn before 3 PM. [facility] labs must be drawn before 12 NOON. If you have questions regarding any of the above information or feel the information is not accurateplease call [phone] or [phone]. [phone]. Thank you, Eliana Farooq, RN [facility] staff: Eliana Farooq, RN; Antonia Mcclellan, RN; Fina Peres, ANGELINE; Ermelinda Casas, RN; Mima Campo, ANGELINE; Love Medina, RN Source: [facility] Document Id: [id number] Electronically signed by Lay [facility] Covered Button Maker [id number] at 11/27/2016 1:44 AM CDT documented in this encounter Plan of Treatment Upcoming Encounters Date Type Specialty Care Team Description 06/22/2022 Appointment Laboratory Medicine Rusty Vee M.D. [address] [place] [phone] 06/22/2022 Diagnostic Pulmonary Medicine Rusty Vee M.D. [address] [place] [phone] 06/22/2022 Diagnostic Pulmonary Medicine Rusty Vee M.D. [address] [place] [phone] 06/22/2022 Appointment Radiology Rusty Vee M.D. [address] [place] [phone] 06/23/2022 Clinical Communication Admitting/Central Scheduling 06/28/2022 Appointment Pulmonary Medicine Rusty Vee M.D. [address] [place] [phone] 06/28/2022 Appointment Pulmonary Medicine Rusty Vee M.D. [address] [place] [phone] documented as of this encounter Visit Diagnoses Not on filedocumented in this encounter
--- OUTSIDE RECORDS SUMMARY | 2022-05-25 21:16 | XMS_ITS | Encounter Summary ---
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 200 [place] [phone] 06/22/2022 Diagnostic Pulmonary Medicine Rusty Vee M.D. 200 [place] [phone] 06/22/2022 Diagnostic Pulmonary Medicine Rusty Vee M.D. [address] [place] [phone] 06/22/2022 Appointment Radiology Rusty Vee M.D. [address] [place] [phone] 06/23/2022 Clinical Communication Admitting/Central Scheduling 06/28/2022 Appointment Pulmonary Medicine Rusty Vee M.D. [address] [place] [phone] 06/28/2022 Appointment Pulmonary Medicine Rusty Vee M.D. [address] [place] [phone] documented as of this encounter Visit Diagnoses Not on filedocumented in this encounter
--- OUTSIDE RECORDS SUMMARY | 2022-05-25 21:16 | XMS_ITS | Encounter Summary ---
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 KARMEN Mcclain/libia Source: [facility] RWHXTRANSXSYS Document Id: [id number] documented in this encounter Plan of Treatment Upcoming Encounters Date Type Specialty Care Team Description 06/22/2022 Appointment Laboratory Medicine Rusty Vee M.D. [address] [place] [phone] 06/22/2022 Diagnostic Pulmonary Medicine Rusty Vee M.D. [address] [place] [phone] 06/22/2022 Diagnostic Pulmonary Medicine Rusty Vee M.D. [address] [place] [phone] 06/22/2022 Appointment Radiology Rusty Vee M.D. [address] [place] [phone] 06/23/2022 Clinical Communication Admitting/Central Scheduling 06/28/2022 Appointment Pulmonary Medicine Rusty Vee M.D. [address] [place] [phone] 06/28/2022 Appointment Pulmonary Medicine Rusty Vee M.D. [address] [place] [phone] documented as of this encounter Visit Diagnoses Not on filedocumented in this encounter
--- OUTSIDE RECORDS SUMMARY | 2022-05-25 21:17 | XMS_ITS | Encounter Summary ---
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 Oral exam: Murphy and moist mucosa. No tonsillar hypertrophy. Posterior [...] to return to care. LATHA Olmstead/yarelis Source: [facility] RWMCHXTRANSXRTFSYS Document Id: [id number] documented in this encounter Plan of Treatment Upcoming Encounters Date Type Specialty Care Team Description 06/22/2022 Appointment Laboratory Medicine Rusty Vee M.D. [address] [place] [phone] 06/22/2022 Diagnostic Pulmonary Medicine Rusty Vee M.D. [address] [place] [phone] 06/22/2022 Diagnostic Pulmonary Medicine Rusty Vee M.D. [address] [place] [phone] 06/22/2022 Appointment Radiology Rusty Vee M.D. [address] [place] [phone] 06/23/2022 Clinical Communication Admitting/Central Scheduling 06/28/2022 Appointment Pulmonary Medicine Rusty Vee M.D. [address] [place] [phone] 06/28/2022 Appointment Pulmonary Medicine Rusty Vee M.D. [address] [place] [phone] documented as of this encounter Visit Diagnoses Not on filedocumented in this encounter
--- OUTSIDE RECORDS SUMMARY | 2022-05-25 21:17 | XMS_ITS | Encounter Summary ---
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 200 [place] [phone] 06/22/2022 Diagnostic Pulmonary Medicine Rusty Vee M.D. 200 [place] [phone] 06/22/2022 Diagnostic Pulmonary Medicine Rusty Vee M.D. [address] [place] [phone] 06/22/2022 Appointment Radiology Rusty Vee M.D. [address] [place] [phone] 06/23/2022 Clinical Communication Admitting/Central Scheduling 06/28/2022 Appointment Pulmonary Medicine Rusty Vee M.D. [address] [place] [phone] 06/28/2022 Appointment Pulmonary Medicine Rusty Vee M.D. [address] [place] [phone] documented as of this encounter Visit Diagnoses Not on filedocumented in this encounter
--- OUTSIDE RECORDS SUMMARY | 2022-05-25 21:17 | XMS_ITS | Encounter Summary ---
:1975 Author Organization [facility] Address [address] [place] [address] Care Team Providers Name Role Phone Unavailable Primary Care Provider Unavailable Encounter Details Date Type Department Care Team Description 03/30/2010 Hospital Encounter [facility] ANTICOAG Provider, His torical Social History Tobacco [...] or relatives? How often do you attend sikhism or More than 4 times per year 05/04/2022 adventism services? Do you belong to any clubs or Yes 05/04/2022 organizations such as sikhism groups, unions, fraternal or athletic groups, or [...] at Date Recorded Female 05/03/2022 7:07 PM GOLF BALL MARKER documented as of this encounter Plan of Treatment Upcoming Encounters Date Type Specialty Care Team Description 06/22/2022 Appointment Laboratory Medicine Rusty Vee M.D. 200 [place] [phone] 06/22/2022 Diagnostic Pulmonary Medicine Rusty Vee M.D. 200 [place] [phone] 06/22/2022 Diagnostic Pulmonary Medicine Rusty Vee M.D. [address] [place] [phone] 06/22/2022 Appointment Radiology Rusty Vee M.D. [address] [place] [phone] 06/23/2022 Clinical Communication Admitting/Central Scheduling 06/28/2022 Appointment Pulmonary Medicine Rusty Vee M.D. [address] [place] [phone] 06/28/2022 Appointment Pulmonary Medicine Rusty Vee M.D. [address] [place] [phone] documented as of this encounter Visit Diagnoses Not on filedocumented in this encounter
--- OUTSIDE RECORDS SUMMARY | 2022-05-25 21:17 | XMS_ITS | Encounter Summary ---
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 documented as of this encounter Miscellaneous Notes Telephone Encounter - Conversion, Historical Provider Ser - 07/05/2010 12:00 AM CST [id number] TELEPHONE TRIAGE ENCOUNTER FORM Date: 07/05/2010 PCP: Cotton MD Patient Name: Hue Medina Gender: female : 1975 Age: [age] year old Time: 10:55 AM Phone Numbers: [phone] (home) Pharmacy: [facility] [place] [facility] Presenting Problem: sore throat Subjective/objective: Patient's [...] desk to schedule appointment for today Source: [facility] RWHXTRANSXRTFSYS Document Id: [id number] documented in this encounter Plan of Treatment Upcoming Encounters Date Type Specialty Care Team Description 06/22/2022 Appointment Laboratory Medicine Rusty Vee M.D. [address] [place] [phone] 06/22/2022 Diagnostic Pulmonary Medicine Rusty Vee M.D. [address] [place] [address] [phone] 06/22/2022 Diagnostic Pulmonary Medicine Rusty Vee M.D. [address] [place] [address] [phone] 06/22/2022 Appointment Radiology Rusty Vee M.D. [address] [place] [address] [phone] 06/23/2022 Clinical Communication Admitting/Central Scheduling 06/28/2022 Appointment Pulmonary Medicine Rusty Vee M.D. [address] [place] [phone] 06/28/2022 Appointment Pulmonary Medicine Rusty Vee M.D. [address] [place] [address] [phone] documented as of this encounter Visit Diagnoses Not on filedocumented in this encounter
--- OUTSIDE RECORDS SUMMARY | 2022-05-25 21:17 | XMS_ITS | Encounter Summary ---
:1975 Author Organization [facility] Address [address] [place] [address] Care Team Providers Name Role Phone Unavailable Primary Care Provider Unavailable Encounter Details Date Type Department Care Team Description 03/02/[address] [facility] ANTICOAG [...] at Date Recorded Female 05/03/2022 7:07 PM VIDEOTAPE RECORDING ENGINEER documented as of this encounter Plan of Treatment Upcoming Encounters Date Type Specialty Care Team Description 06/22/2022 Appointment Laboratory Medicine Rusty Vee M.D. 200 [place] [phone] 06/22/2022 Diagnostic Pulmonary Medicine Rusty Vee M.D. 200 [place] [phone] 06/22/2022 Diagnostic Pulmonary Medicine Rusty Vee M.D. [address] [place] [phone] 06/22/2022 Appointment Radiology Rusty Vee M.D. [address] [place] [phone] 06/23/2022 Clinical Communication Admitting/Central Scheduling 06/28/2022 Appointment Pulmonary Medicine Rusty Vee M.D. [address] [place] [phone] 06/28/2022 Appointment Pulmonary Medicine Rusty Vee M.D. [address] [place] [phone] documented as of this encounter Visit Diagnoses Not on filedocumented in this encounter
--- OUTSIDE RECORDS SUMMARY | 2022-05-25 21:17 | XMS_ITS | Encounter Summary ---
:1975 Author Organization [facility] Address [address] [place] [address] Care Team Providers Name Role Phone Unavailable Primary Care Provider Unavailable Encounter Details Date Type Department Care Team Description 04/08/2010 Hospital Encounter [facility] Provider, [place] Social History Tobacco Use Types Packs/Day [...] at Date Recorded Female 05/03/2022 7:07 PM PALAEONTOLOGIST documented as of this encounter Miscellaneous Notes Telephone Encounter - Conversion, Historical Provider Ser - 04/08/2010 12:00 AM CDT [id number] TELEPHONE TRIAGE ENCOUNTER FORM Date: 04/08/2010 PCP: Cotton MD Patient Name: Hue Medina Gender: female : 1975 Age: [age] year old Time: 12:39 PM Phone Numbers: [phone] (home) Pharmacy: [facility] [place] [facility] Presenting Problem: eye problem Subjective/objective: Patient's [...] Telephone Triage Protocols for Nurses. Juan J, 2001 - 2006 eye problem pg 195-197 PLAN / INTERVENTION Disposition: Referred to Caller verbalizes understanding of disposition? YES Caller agrees to plan? Yes EVALUATION / FOLLOW-UP Plans to have daughter seen in today Source: [facility] RWHXTRANSXRTFSYS Document Id: [id number] documented in this encounter Plan of Treatment Upcoming Encounters Date Type Specialty Care Team Description 06/22/2022 Appointment Laboratory Medicine Rusty Vee M.D. 200 [place] [phone] 06/22/2022 Diagnostic Pulmonary Medicine Rusty Vee M.D. [address] [place] [phone] 06/22/2022 Diagnostic Pulmonary Medicine Rusty Vee M.D. [address] [place] [address] [phone] 06/22/2022 Appointment Radiology Rusty Vee M.D. [address] [place] [address] [phone] 06/23/2022 Clinical Communication Admitting/Central Scheduling 06/28/2022 Appointment Pulmonary Medicine Rusty Vee M.D. [address] [place] [phone] 06/28/2022 Appointment Pulmonary Medicine Rusty Vee M.D. [address] [place] [phone] documented as of this encounter Visit Diagnoses Not on filedocumented in this encounter
--- OUTSIDE RECORDS SUMMARY | 2022-05-25 21:17 | XMS_ITS | Encounter Summary ---
:1975 Author Organization [facility] Address [address] [place] [address] Care Team Providers Name Role Phone Unavailable Primary Care Provider Unavailable Encounter Details Date Type Department Care Team Description 09/21/[address] [facility] ANTICOAG Provider, His torical Social [...] Date Recorded Female 05/03/2022 7:07 PM INSTALLATION DRAFTER documented as of this encounter Plan of Treatment Upcoming Encounters Date Type Specialty Care Team Description 06/22/2022 Appointment Laboratory Medicine Rusty Vee M.D. 200 [place] [phone] 06/22/2022 Diagnostic Pulmonary Medicine Rusty Vee M.D. 200 [place] [phone] 06/22/2022 Diagnostic Pulmonary Medicine Rusty Vee M.D. [address] [place] [phone] 06/22/2022 Appointment Radiology Rusty Vee M.D. [address] [place] [phone] 06/23/2022 Clinical Communication Admitting/Central Scheduling 06/28/2022 Appointment Pulmonary Medicine Rusty Vee M.D. [address] [place] [phone] 06/28/2022 Appointment Pulmonary Medicine Rusty Vee M.D. [address] [place] [phone] documented as of this encounter Visit Diagnoses Not on filedocumented in this encounter
--- OUTSIDE RECORDS SUMMARY | 2022-05-25 21:17 | XMS_ITS | Encounter Summary ---
:1975 Author Organization [facility] Address [address] [place] [address] Care Team Providers Name Role Phone Unavailable Primary Care Provider Unavailable Encounter Details Date Type Department Care Team Description 07/19/2010 Hospital Encounter HX [facility] Javier Parks, P.A.-C. 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 - 07/19/2010 3:30 PM CST [id number] Hue is a 35 year old Down [...] limited due to obesity, Bowel sounds hyperactive Hip Hop Performers: external genitalia normal, small introitus, vaginal mucosa [...] send lab results to mother at: Fabiola Carol [address] [facility] [address]. Source: [facility] RWHXTRANSXRTFSYS Document Id: [id number] Electronically signed by Conversion, [facility] Pilot [employer] [id number] at 11/27/2016 5:51 AM CDT documented in this encounter Miscellaneous Notes Miscellaneous - Conversion, Historical Provider Ser - 07/19/2010 3:30 PM CHALK MACHINE OPERATOR [id number] Hue Bellamy Carol [address] [facility] [phone] [facility] July 26, 2010 Dear Hue Medina, I am happy to inform you that your recent cervical cancer screening test (PAP smear) was normal. Preventative screening such as this helps insure your health for years to come. Congratulations for taking care of yourself! If you have any further questions, please contact my office at [phone]. Sincerely, Shwetha Manuel. OBSTETRICS/GYNECOLOGY [facility] Source: [facility] Document Id: [id number] documented in this encounter Plan of Treatment Upcoming Encounters Date Type Specialty Care Team Description 06/22/2022 Appointment Laboratory Medicine Rusty Vee M.D. [address] [place] [phone] 06/22/2022 Diagnostic Pulmonary Medicine Rusty Vee M.D. [address] [place] [phone] 06/22/2022 Diagnostic Pulmonary Medicine Rusty Vee M.D. [address] [place] [phone] 06/22/2022 Appointment Radiology Rusty Vee M.D. [address] [place] [phone] 06/23/2022 Clinical Communication Admitting/Central Scheduling 06/28/2022 Appointment Pulmonary Medicine Rusty Vee M.D. [address] [place] [phone] 06/28/2022 Appointment Pulmonary Medicine Rusty Vee M.D. [address] [place] [phone] documented as of this encounter Visit Diagnoses Not on filedocumented in this encounter
--- OUTSIDE RECORDS SUMMARY | 2022-05-25 21:17 | XMS_ITS | Encounter Summary ---
:1975 Author Organization [facility] Address [address] [place] [address] Care Team Providers Name Role Phone Unavailable [...] at Date Recorded Female 05/03/2022 7:07 PM LEGAL COLLECTOR documented as of this encounter Plan of Treatment Upcoming Encounters Date Type Specialty Care Team Description 06/22/2022 Appointment Laboratory Medicine Rusty Vee M.D. 200 [place] [phone] 06/22/2022 Diagnostic Pulmonary Medicine Rusty Vee M.D. 200 [place] [phone] 06/22/2022 Diagnostic Pulmonary Medicine Rusty Vee M.D. [address] [place] [phone] 06/22/2022 Appointment Radiology Rusty Vee M.D. [address] [place] [phone] 06/23/2022 Clinical Communication Admitting/Central Scheduling 06/28/2022 Appointment Pulmonary Medicine Rusty Vee M.D. [address] [place] [phone] 06/28/2022 Appointment Pulmonary Medicine Rusty Vee M.D. [address] [place] [phone] documented as of this encounter Visit Diagnoses Not on filedocumented in this encounter
--- OUTSIDE RECORDS SUMMARY | 2022-05-25 21:17 | XMS_ITS | Encounter Summary ---
:1975 Author Organization [facility] Address [address] [place] [address] Care Team Providers Name Role Phone Unavailable Primary Care Provider Unavailable Encounter Details Date Type Department Care Team Description 08/31/[address] 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 200 [place] [phone] 06/22/2022 Diagnostic Pulmonary Medicine Rusty Vee M.D. 200 [place] [phone] 06/22/2022 Diagnostic Pulmonary Medicine Rusty Vee M.D. [address] [place] [phone] 06/22/2022 Appointment Radiology Rusty Vee M.D. [address] [place] [phone] 06/23/2022 Clinical Communication Admitting/Central Scheduling 06/28/2022 Appointment Pulmonary Medicine Rusty Vee M.D. [address] [place] [phone] 06/28/2022 Appointment Pulmonary Medicine Rusty Vee M.D. [address] [place] [phone] documented as of this encounter Visit Diagnoses Not on filedocumented in this encounter
--- OUTSIDE RECORDS SUMMARY | 2022-05-25 21:17 | XMS_ITS | Encounter Summary ---
:1975 Author Organization [facility] Address [address] [place] [address] Care Team Providers Name Role Phone Unavailable Primary Care Provider Unavailable Encounter Details Date Type Department Care Team Description 07/05/2010 Hospital Encounter [facility] FAMILYPRA Marsha Garibay M.D. [address] [place], [place] [address] (Wo rk) Social History [...] at Date Recorded Female 05/03/2022 7:07 PM BOTTLE CAPPER documented as of this encounter Progress Notes Sridhar Garibay M.D. - 07/05/2010 1:30 PM CST [id number] CLINIC ENCOUNTER SUBJECTIVE: The patient presents today [...] or get worse. Gabby Pérez/raul cc: [facility] Document Id: [id number] Sridhar Garibay M.D. - 07/05/2010 1:30 PM CST [id number] This office note has been dictated. Source[facility] Document Id: [id number] documented in this encounter Plan of Treatment Upcoming Encounters Date Type Specialty Care Team Description 06/22/2022 Appointment Laboratory Medicine Rusty Vee M.D. [address] [place] [phone] 06/22/2022 Diagnostic Pulmonary Medicine Rusty Vee M.D. [address] [place] [phone] 06/22/2022 Diagnostic Pulmonary Medicine Rusty Vee M.D. [address] [place] [phone] 06/22/2022 Appointment Radiology Rusty Vee M.D. [address] [place] [phone] 06/23/2022 Clinical Communication Admitting/Central Scheduling 06/28/2022 Appointment Pulmonary Medicine Rusty Vee M.D. [address] [place] [phone] 06/28/2022 Appointment Pulmonary Medicine Rusty Vee M.D. [address] [place] [phone] documented as of this encounter Visit Diagnoses Not on filedocumented in this encounter
--- OUTSIDE RECORDS SUMMARY | 2022-05-25 21:17 | XMS_ITS | Encounter Summary ---
:1975 Author Organization [facility] Address [address] [place] [address] Care Team Providers Name Role Phone Unavailable Primary Care Provider Unavailable Encounter Details Date Type Department Care Team Description 02/02/[address] [facility] ANTICOAG Provider, His torical [...] at Date Recorded Female 05/03/2022 7:07 PM ASSEMBLER FISHING FLOATS documented as of this encounter Plan of Treatment Upcoming Encounters Date Type Specialty Care Team Description 06/22/2022 Appointment Laboratory Medicine Rusty Vee M.D. 200 [place] [phone] 06/22/2022 Diagnostic Pulmonary Medicine Rusty Vee M.D. 200 [place] [phone] 06/22/2022 Diagnostic Pulmonary Medicine Rusty Vee M.D. [address] [place] [phone] 06/22/2022 Appointment Radiology Rusty Vee M.D. [address] [place] [phone] 06/23/2022 Clinical Communication Admitting/Central Scheduling 06/28/2022 Appointment Pulmonary Medicine Rusty Vee M.D. [address] [place] [phone] 06/28/2022 Appointment Pulmonary Medicine Rusty Vee M.D. [address] [place] [phone] documented as of this encounter Visit Diagnoses Not on filedocumented in this encounter
--- OUTSIDE RECORDS SUMMARY | 2022-05-25 21:17 | XMS_ITS | Encounter Summary ---
:1975 Author Organization [facility] Address [address] [place] [address] Care Team Providers Name Role Phone Unavailable Primary Care Provider Unavailable Encounter Details Date Type Department Care Team Description 05/03/2010 Hospital Encounter [facility] Dick Restrepo ei, R.N. [address] [place] [phone] Social History Tobacco Use Types Packs/Day Years [...] Date Recorded Female 05/03/2022 7:07 PM STOCK DRIER TENDER documented as of this encounter Plan of Treatment Upcoming Encounters Date Type Specialty Care Team Description 06/22/2022 Appointment Laboratory Medicine Rusty Vee M.D. 200 [place] [phone] 06/22/2022 Diagnostic Pulmonary Medicine Rusty Vee M.D. [address] [place] [phone] 06/22/2022 Diagnostic Pulmonary Medicine Rusty Vee M.D. [address] [place] [phone] 06/22/2022 Appointment Radiology Rusty Vee M.D. [address] [place] [phone] 06/23/2022 Clinical Communication Admitting/Central Scheduling 06/28/2022 Appointment Pulmonary Medicine Rusty Vee M.D. [address] [place] [phone] 06/28/2022 Appointment Pulmonary Medicine Rusty Vee M.D. [address] [place] [phone] documented as of this encounter Visit Diagnoses Not on filedocumented in this encounter
--- OUTSIDE RECORDS SUMMARY | 2022-05-25 21:17 | XMS_ITS | Encounter Summary ---
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 200 [place] [phone] 06/22/2022 Diagnostic Pulmonary Medicine Rusty Vee M.D. 200 [place] [phone] 06/22/2022 Diagnostic Pulmonary Medicine Rusty Vee M.D. [address] [place] [phone] 06/22/2022 Appointment Radiology Rusty Vee M.D. [address] [place] [phone] 06/23/2022 Clinical Communication Admitting/Central Scheduling 06/28/2022 Appointment Pulmonary Medicine Rusty Vee M.D. [address] [place] [phone] 06/28/2022 Appointment Pulmonary Medicine uRsty Vee M.D. [address] [place] [phone] documented as of this encounter Visit Diagnoses Not on filedocumented in this encounter
--- OUTSIDE RECORDS SUMMARY | 2022-05-25 21:17 | XMS_ITS | Encounter Summary ---
:1975 Author Organization [facility] Address [address] [place] [address] Care Team Providers Name Role Phone Unavailable Primary Care Provider Unavailable Encounter Details Date Type Department Care Team Description 05/11/2010 Hospital Encounter [facility]X [facility] ANTICOAG Provider, His torical Social [...] at Date Recorded Female 05/03/2022 7:07 PM ZIGZAG APPLIQUER documented as of this encounter Plan of Treatment Upcoming Encounters Date Type Specialty Care Team Description 06/22/2022 Appointment Laboratory Medicine Rusty Vee M.D. 200 [place] [phone] 06/22/2022 Diagnostic Pulmonary Medicine Rusty Vee M.D. 200 [place] [phone] 06/22/2022 Diagnostic Pulmonary Medicine Rusty Vee M.D. [address] [place] [phone] 06/22/2022 Appointment Radiology Rusty Vee M.D. [address] [place] [phone] 06/23/2022 Clinical Communication Admitting/Central Scheduling 06/28/2022 Appointment Pulmonary Medicine Rusty Vee M.D. [address] [place] [phone] 06/28/2022 Appointment Pulmonary Medicine Rusty Vee M.D. [address] [place] [phone] documented as of this encounter Visit Diagnoses Not on filedocumented in this encounter
--- OUTSIDE RECORDS SUMMARY | 2022-05-25 21:17 | XMS_ITS | Encounter Summary ---
:1975 Author Organization [facility] Address [address] [place] [address] Care Team Providers Name Role Phone Unavailable Primary Care Provider Unavailable Encounter Details Date Type Department Care Team Description 07/26/2010 Hospital Encounter HX [facility] Nanci Reid sa, R.N. [address] [place] [phone] Social History Tobacco Use [...] at Date Recorded Female 05/03/2022 7:07 PM HYDROTHERAPIST documented as of this encounter Miscellaneous Notes Telephone Encounter - Annie Velazquez R.N. - 07/26/2010 12:00 AM CST [id number] Situation/What is the patients concern/need: Patient inquiry. [...] Best number(s) to reach patient: na [facility]: [facility] Document Id: [id number] documented in this encounter Plan of Treatment Upcoming Encounters Date Type Specialty Care Team Description 06/22/2022 Appointment Laboratory Medicine Rusty Vee M.D. [address] [place] [phone] 06/22/2022 Diagnostic Pulmonary Medicine Rusty Vee M.D. [address] [place] [phone] 06/22/2022 Diagnostic Pulmonary Medicine Rusty Vee M.D. [address] [place] [phone] 06/22/2022 Appointment Radiology Rusty Vee M.D. [address] [place] [phone] 06/23/2022 Clinical Communication Admitting/Central Scheduling 06/28/2022 Appointment Pulmonary Medicine Rusty Vee M.D. [address] [place] [phone] 06/28/2022 Appointment Pulmonary Medicine Rusty Vee M.D. [address] [place] [phone] documented as of this encounter Visit Diagnoses Not on filedocumented in this encounter
--- OUTSIDE RECORDS SUMMARY | 2022-05-25 21:17 | XMS_ITS | Encounter Summary ---
:[address] [facility] Address [address] [place] [address] Care Team Providers Name Role Phone Unavailable Primary Care Provider Unavailable Encounter Details Date Type Department Care Team Description 07/07/2010 Hospital En[facility] FAMILYPRA Marsha Garibay M.D. [address] [place], [place] [address] (Wo rk) Social [...] at Date Recorded Female 05/03/2022 7:07 PM BINDERY ASSISTANT documented as of this encounter Miscellaneous Notes Telephone Encounter - Conversion, Historical Provider Ser - 07/07/2010 12:00 AM CST [id number] Faxed request from pharmacy,will be directly faxed back if approved. PCP KHOI 07/05/10 Close encounter when completed. Thank you. Source: [facility] Document Id: [id number] Telephone Encounter - Antonia Mcclellan R.N. - 07/07/2010 12:00 AM CST [id number] Prescription approved per RN refill protocol. Last visit:07/05/10 BP Readings from Last 1 Encounters: 07/05/2010 90/60 No exclusionary diagnoses. INR 2.08 07/06/2010 [facility] Document Id: [id number] documented in this encounter Plan of Treatment Upcoming Encounters Date Type Specialty Care Team Description 06/22/2022 Appointment Laboratory Medicine Rusty Vee M.D. [address] [place] [phone] 06/22/2022 Diagnostic Pulmonary Medicine Rusty Vee M.D. [address] [place] [phone] 06/22/2022 Diagnostic Pulmonary Medicine Rusty Vee M.D. [address] [place] [phone] 06/22/2022 Appointment Radiology Rusty Vee M.D. [address] [place] [phone] 06/23/2022 Clinical Communication Admitting/Central Scheduling 06/28/2022 Appointment Pulmonary Medicine Rusty Vee M.D. [address] [place] [phone] 06/28/2022 Appointment Pulmonary Medicine Rusty Vee M.D. [address] [place] [phone] documented as of this encounter Visit Diagnoses Not on filedocumented in this encounter
--- OUTSIDE RECORDS SUMMARY | 2022-05-25 21:17 | XMS_ITS | Encounter Summary ---
:1975 Author Organization [facility] Address [address] [place] [address] Care Team Providers Name Role Phone Unavailable Primary Care Provider Unavailable Encounter Details Date Type Department Care Team Description 07/22/2010 Hospital Encounter [facility] Javier Parks, P.A.-C. [address] [place] [address] (Wo rk) Social History Tobacco Use Types [...] Date Recorded Female 05/03/2022 7:07 PM CLINICAL TRIAL EDUCATOR documented as of this encounter Miscellaneous Notes Miscellaneous - Cristiane Echavarria P.A.-C. - 07/22/2010 12:00 AM CST [id number] [facility] SITE SAFETY MANAGER [address] [place] [facility] [address] July 22, 2010 Fabiola Medina [address] [place] [address] [facility] Dear Ms. Medina, Here are the test [...] questions or problems, please contact me at [phone]. Sincerely, Cristiane Echavarria PA-C [facility] SITE SAFETY MANAGER [address] [facility] [address] Source: [facility] RWMCHXTRANSXRTFSYS Document Id: [id number] documented in this encounter Plan of Treatment Upcoming Encounters Date Type Specialty Care Team Description 06/22/2022 Appointment Laboratory Medicine Rusty Vee M.D. [address] [place] [phone] 06/22/2022 Diagnostic Pulmonary Medicine Rusty Vee M.D. [address] [place] [phone] 06/22/2022 Diagnostic Pulmonary Medicine Rusty Vee M.D. [address] [place] [phone] 06/22/2022 Appointment Radiology Rusty Vee M.D. [address] [place] [phone] 06/23/2022 Clinical Communication Admitting/Central Scheduling 06/28/2022 Appointment Pulmonary Medicine Rusty Vee M.D. [address] [place] [phone] 06/28/2022 Appointment Pulmonary Medicine Rusty Vee M.D. [address] [place] [phone] documented as of this encounter Visit Diagnoses Not on filedocumented in this encounter
--- OUTSIDE RECORDS SUMMARY | 2022-05-25 21:17 | XMS_ITS | Encounter Summary ---
:1975 Author Organization [facility] Address [address] [place] [address] Care Team Providers Name Role Phone Unavailable Primary Care Provider Unavailable Encounter Details Date Type Department Care Team Description 07/27/2010 Hospital Encounter [facility] XRAY Provider, Histori bro Social History Tobacco [...] at Date Recorded Female 05/03/2022 7:07 PM DRAGLINE ENGINEER documented as of this encounter Progress Notes Cristiane Winters PMichaelAJayjay. - 07/27/2010 3:30 PM CST [id number] Addended by: CRISTIANE WINTERS on: 07/28/2010 Modules accepted: Orders Source: [facility] Document Id: [id number] documented in this encounter Miscellaneous Notes Miscellaneous - Cristiane Winters P.A.-C. - 07/27/2010 3:30 PM CST [id number] [facility] [address] [facility] [address] July 28, 2010 Fabiola Medina [address] [place] [id number] [facility] Dear Ms. Medina, Hue's ultrasound showed a small cyst on the [...] questions or problems, please contact me at [phone]. Sincerely, INSURANCE EXAMINER [address] [facility] [address] Source: [facility] RWMCHXTRANSXRTFSYS Document Id: [id number] documented in this encounter Plan of Treatment Upcoming Encounters Date Type Specialty Care Team Description 06/22/2022 Appointment Laboratory Medicine Rusty Vee M.D. [address] [place] [phone] 06/22/2022 Diagnostic Pulmonary Medicine Rusty Vee M.D. [address] [place] [phone] 06/22/2022 Diagnostic Pulmonary Medicine Rusty Vee M.D. [address] [place] [phone] 06/22/2022 Appointment Radiology Rusty Vee M.D. [address] [place] [phone] 06/23/2022 Clinical Communication Admitting/Central Scheduling 06/28/2022 Appointment Pulmonary Medicine Rusty Vee M.D. [address] [place] [phone] 06/28/2022 Appointment Pulmonary Medicine Rusty Vee M.D. [address] [place] [phone] documented as of this encounter Visit Diagnoses Not on filedocumented in this encounter
--- OUTSIDE RECORDS SUMMARY | 2022-05-25 21:17 | XMS_ITS | Encounter Summary ---
:1975 Author Organization [facility] Address [address] [place] [address] Care Team Providers Name Role Phone Unavailable Primary Care Provider Unavailable Encounter Details Date Type Department Care Team Description 07/13/2010 Hospital Encounter [facility] ANTICOAG Provider, His torical [...] at Date Recorded Female 05/03/2022 7:07 PM ACCOUNTS PAYABLE SUPERVISOR documented as of this encounter Plan of Treatment Upcoming Encounters Date Type Specialty Care Team Description 06/22/2022 Appointment Laboratory Medicine Rusty Vee M.D. 200 [place] [phone] 06/22/2022 Diagnostic Pulmonary Medicine Rusty Vee M.D. 200 [place] [phone] 06/22/2022 Diagnostic Pulmonary Medicine Rusty Vee M.D. [address] [place] [phone] 06/22/2022 Appointment Radiology Rusty Vee M.D. [address] [place] [phone] 06/23/2022 Clinical Communication Admitting/Central Scheduling 06/28/2022 Appointment Pulmonary Medicine Rusty Vee M.D. [address] [place] [phone] 06/28/2022 Appointment Pulmonary Medicine Rusty Vee M.D. [address] [place] [phone] documented as of this encounter Visit Diagnoses Not on filedocumented in this encounter
--- OUTSIDE RECORDS SUMMARY | 2022-05-25 21:17 | XMS_ITS | Encounter Summary ---
:1975 Author Organization [facility] Address [address] [place] [address] Care Team Providers Name Role Phone Unavailable Primary Care Provider Unavailable Encounter Details Date Type Department Care Team Description 06/08/2010 Hospital Encounter [facility] ANTICOAG Provider, His torical [...] Recorded Female 05/03/2022 7:07 PM MANAGER OF NETWORK documented as of this encounter Plan of Treatment Upcoming Encounters Date Type Specialty Care Team Description 06/22/2022 Appointment Laboratory Medicine Rusty Vee M.D. 200 [place] [phone] 06/22/2022 Diagnostic Pulmonary Medicine Rusty Vee M.D. 200 [place] [phone] 06/22/2022 Diagnostic Pulmonary Medicine Rusty Vee M.D. [address] [place] [phone] 06/22/2022 Appointment Radiology Rusty Vee M.D. [address] [place] [phone] 06/23/2022 Clinical Communication Admitting/Central Scheduling 06/28/2022 Appointment Pulmonary Medicine Rusty Vee M.D. [address] [place] [phone] 06/28/2022 Appointment Pulmonary Medicine Rusty Vee M.D. [address] [place] [phone] documented as of this encounter Visit Diagnoses Not on filedocumented in this encounter
--- OUTSIDE RECORDS SUMMARY | 2022-05-25 21:17 | XMS_ITS | Encounter Summary ---
:1975 Author Organization [facility] Address [address] [place] [address] Care Team Providers Name Role Phone Unavailable Primary Care Provider Unavailable Encounter Details Date Type Department Care Team Description 09/07/2010 Hospital Encounter [facility] ANTICOAG Provider, His torical Social [...] Appointment Laboratory Medicine Rusty Vee M.D. 200 [place] [phone] 06/22/2022 Diagnostic Pulmonary Medicine Rusty Vee M.D. 200 [place] [phone] 06/22/2022 Diagnostic Pulmonary Medicine Rusty Vee M.D. [address] [place] [phone] 06/22/2022 Appointment Radiology Rusty Vee M.D. [address] [place] [phone] 06/23/2022 Clinical Communication Admitting/Central Scheduling 06/28/2022 Appointment Pulmonary Medicine Rusty Vee M.D. [address] [place] [phone] 06/28/2022 Appointment Pulmonary Medicine Rusty Vee M.D. [address] [place] [phone] documented as of this encounter Visit Diagnoses Not on filedocumented in this encounter
--- OUTSIDE RECORDS SUMMARY | 2022-05-25 21:17 | XMS_ITS | Encounter Summary ---
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 200 [place] [phone] 06/22/2022 Diagnostic Pulmonary Medicine Rusty Vee M.D. 200 [place] [phone] 06/22/2022 Diagnostic Pulmonary Medicine Rusty Vee M.D. [address] [place] [phone] 06/22/2022 Appointment Radiology Rusty Vee M.D. [address] [place] [phone] 06/23/2022 Clinical Communication Admitting/Central Scheduling 06/28/2022 Appointment Pulmonary Medicine Rusty Vee M.D. [address] [place] [phone] 06/28/2022 Appointment Pulmonary Medicine Rusty Vee M.D. [address] [place] [phone] documented as of this encounter Visit Diagnoses Not on filedocumented in this encounter
--- OUTSIDE RECORDS SUMMARY | 2022-05-25 21:17 | XMS_ITS | Encounter Summary ---
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 200 [place] [phone] 06/22/2022 Diagnostic Pulmonary Medicine Rusty Vee M.D. 200 [place] [phone] 06/22/2022 Diagnostic Pulmonary Medicine Rusty Vee M.D. [address] [place] [phone] 06/22/2022 Appointment Radiology Rusty Vee M.D. [address] [place] [phone] 06/23/2022 Clinical Communication Admitting/Central Scheduling 06/28/2022 Appointment Pulmonary Medicine Rusty Vee M.D. [address] [place] [phone] 06/28/2022 Appointment Pulmonary Medicine Rusty Vee M.D. [address] [place] [phone] documented as of this encounter Visit Diagnoses Not on filedocumented in this encounter
--- OUTSIDE RECORDS SUMMARY | 2022-05-25 21:17 | XMS_ITS | Encounter Summary ---
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 200 [place] [phone] 06/22/2022 Diagnostic Pulmonary Medicine Rusty Vee M.D. 200 [place] [phone] 06/22/2022 Diagnostic Pulmonary Medicine Rusty Vee M.D. [address] [place] [phone] 06/22/2022 Appointment Radiology Rusty Vee M.D. [address] [place] [phone] 06/23/2022 Clinical Communication Admitting/Central Scheduling 06/28/2022 Appointment Pulmonary Medicine Rusty Vee M.D. [address] [place] [phone] 06/28/2022 Appointment Pulmonary Medicine Rusty Vee M.D. [address] [place] [phone] documented as of this encounter Visit Diagnoses Not on filedocumented in this encounter
--- OUTSIDE RECORDS SUMMARY | 2022-05-25 21:17 | XMS_ITS | Encounter Summary ---
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 200 [place] [phone] 06/22/2022 Diagnostic Pulmonary Medicine Rusty Vee M.D. 200 [place] [phone] 06/22/2022 Diagnostic Pulmonary Medicine Rusty Vee M.D. [address] [place] [phone] 06/22/2022 Appointment Radiology Rusty Vee M.D. [address] [place] [phone] 06/23/2022 Clinical Communication Admitting/Central Scheduling 06/28/2022 Appointment Pulmonary Medicine Rusty Vee M.D. [address] [place] [phone] 06/28/2022 Appointment Pulmonary Medicine Rusty Vee M.D. [address] [place] [phone] documented as of this encounter Visit Diagnoses Not on filedocumented in this encounter
--- OUTSIDE RECORDS SUMMARY | 2022-05-25 21:17 | XMS_ITS | Encounter Summary ---
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 200 [place] [phone] 06/22/2022 Diagnostic Pulmonary Medicine Rusty Vee M.D. 200 [place] [phone] 06/22/2022 Diagnostic Pulmonary Medicine Rusty Vee M.D. [address] [place] [phone] 06/22/2022 Appointment Radiology Rusty Vee M.D. [address] [place] [phone] 06/23/2022 Clinical Communication Admitting/Central Scheduling 06/28/2022 Appointment Pulmonary Medicine Rusty Vee M.D. [address] [place] [phone] 06/28/2022 Appointment Pulmonary Medicine Rusty Vee M.D. [address] [place] [phone] documented as of this encounter Visit Diagnoses Not on filedocumented in this encounter
--- OUTSIDE RECORDS SUMMARY | 2022-05-25 21:17 | XMS_ITS | Encounter Summary ---
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 200 [place] [phone] 06/22/2022 Diagnostic Pulmonary Medicine Rusty Vee M.D. 200 [place] [phone] 06/22/2022 Diagnostic Pulmonary Medicine Rusty Vee M.D. [address] [place] [phone] 06/22/2022 Appointment Radiology Rusty Vee M.D. [address] [place] [phone] 06/23/2022 Clinical Communication Admitting/Central Scheduling 06/28/2022 Appointment Pulmonary Medicine Rusty Vee M.D. [address] [place] [phone] 06/28/2022 Appointment Pulmonary Medicine Rusty Vee M.D. [address] [place] [phone] documented as of this encounter Visit Diagnoses Not on filedocumented in this encounter
--- OUTSIDE RECORDS SUMMARY | 2022-05-25 21:18 | XMS_ITS | Encounter Summary ---
:1975 Author Organization [facility] Address [address] [place] [address] Care Team Providers Name Role Phone Unavailable Primary Care Provider Unavailable Encounter Details Date Type Department Care Team Description 02/10/2009 Hospital Encounter 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 200 [place] [phone] 06/22/2022 Diagnostic Pulmonary Medicine Rusty Vee M.D. 200 [place] [phone] 06/22/2022 Diagnostic Pulmonary Medicine Rusty Vee M.D. [address] [place] [phone] 06/22/2022 Appointment Radiology Rusty Vee M.D. [address] [place] [phone] 06/23/2022 Clinical Communication Admitting/Central Scheduling 06/28/2022 Appointment Pulmonary Medicine Rusty Vee M.D. [address] [place] [phone] 06/28/2022 Appointment Pulmonary Medicine Rusty Vee M.D. [address] [place] [phone] documented as of this encounter Visit Diagnoses Not on filedocumented in this encounter
--- OUTSIDE RECORDS SUMMARY | 2022-05-25 21:18 | XMS_ITS | Encounter Summary ---
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 200 [place] [phone] 06/22/2022 Diagnostic Pulmonary Medicine Rusty Vee M.D. 200 [place] [phone] 06/22/2022 Diagnostic Pulmonary Medicine Rusty Vee M.D. [address] [place] [phone] 06/22/2022 Appointment Radiology Rusty Vee M.D. [address] [place] [phone] 06/23/2022 Clinical Communication Admitting/Central Scheduling 06/28/2022 Appointment Pulmonary Medicine Rusty Vee M.D. [address] [place] [phone] 06/28/2022 Appointment Pulmonary Medicine Rusty Vee M.D. [address] [place] [phone] documented as of this encounter Visit Diagnoses Not on filedocumented in this encounter
--- OUTSIDE RECORDS SUMMARY | 2022-05-25 21:18 | XMS_ITS | Encounter Summary ---
:1975 Author Organization [facility] Address [address] [place] [address] Care Team Providers Name Role Phone Unavailable Primary Care Provider Unavailable Encounter Details Date Type Department Care Team Description 08/04/2008 Hospital Encounter [facility] Marsha Garibay M.D. 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 - 08/04/2008 12:00 AM CST [id number] Accepting this Rx will be faxed directly to pharmacy. Will you address this please? PCP is out of the office today. Source: [facility] Document Id: [id number] Electronically signed by Conversion, [facility] Centrifugal Extractor Operator [id number] at 11/27/2016 7:27 PM CDT documented in this encounter Plan of Treatment Upcoming Encounters Date Type Specialty Care Team Description 06/22/2022 Appointment Laboratory Medicine Rusty Vee M.D. [address] [place] [phone] 06/22/2022 Diagnostic Pulmonary Medicine Rusty Vee M.D. [address] [place] [phone] 06/22/2022 Diagnostic Pulmonary Medicine Rusty Vee M.D. [address] [place] [phone] 06/22/2022 Appointment Radiology Rusty Vee M.D. [address] [place] [phone] 06/23/2022 Clinical Communication Admitting/Central Scheduling 06/28/2022 Appointment Pulmonary Medicine Rusty Vee M.D. [address] [place] [phone] 06/28/2022 Appointment Pulmonary Medicine Rusty Vee M.D. [address] [place] [address] [phone] documented as of this encounter Visit Diagnoses Not on filedocumented in this encounter
--- OUTSIDE RECORDS SUMMARY | 2022-05-25 21:18 | XMS_ITS | Encounter Summary ---
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 200 [place] [phone] 06/22/2022 Diagnostic Pulmonary Medicine Rusty Vee M.D. 200 [place] [phone] 06/22/2022 Diagnostic Pulmonary Medicine Rusty Vee M.D. [address] [place] [phone] 06/22/2022 Appointment Radiology Rusty Vee M.D. [address] [place] [phone] 06/23/2022 Clinical Communication Admitting/Central Scheduling 06/28/2022 Appointment Pulmonary Medicine Rusty Vee M.D. [address] [place] [phone] 06/28/2022 Appointment Pulmonary Medicine Rusty Vee M.D. [address] [place] [phone] documented as of this encounter Visit Diagnoses Not on filedocumented in this encounter
--- OUTSIDE RECORDS SUMMARY | 2022-05-25 21:18 | XMS_ITS | Encounter Summary ---
:1975 Author Organization [facility] Address [address] [place] [address] Care Team Providers Name Role Phone Unavailable Primary Care Provider Unavailable Encounter Details Date Type Department Care Team Description 04/30/2009 Hospital Encounter [facility] FAMILYPR[facility] Marsha Garibay M.D. 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 Source: [facility] Document Id: [id number] Telephone Encounter - Radha Dickinson R.N. - 04/30/2009 12:00 AM CST [id number] Last visit: with PCP on 05/16/08 Last 1 Encounter BP Readings: Date BP 12/05/2008 100/58 Unable to approve medication per the RN refill protocol due to: - Medication not on refill protocol list Source: [facility] Document Id: [id number] Electronically signed by Conversion, [facility] Wooling Machine Operator [id number] at 11/27/2016 6:55 PM CDT documented in this encounter Plan of Treatment Upcoming Encounters Date Type Specialty Care Team Description 06/22/2022 Appointment Laboratory Medicine Rusty Vee M.D. [address] [place] [phone] 06/22/2022 Diagnostic Pulmonary Medicine Rusty Vee M.D. [address] [place] [phone] 06/22/2022 Diagnostic Pulmonary Medicine Rusty Vee M.D. [address] [place] [phone] 06/22/2022 Appointment Radiology Rusty Vee M.D. [address] [place] [phone] 06/23/2022 Clinical Communication Admitting/Central Scheduling 06/28/2022 Appointment Pulmonary Medicine Rusty Vee M.D. [address] [place] [phone] 06/28/2022 Appointment Pulmonary Medicine Rusty Vee M.D. [address] [place] [phone] documented as of this encounter Visit Diagnoses Not on filedocumented in this encounter
--- OUTSIDE RECORDS SUMMARY | 2022-05-25 21:18 | XMS_ITS | Encounter Summary ---
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 200 [place] [phone] 06/22/2022 Diagnostic Pulmonary Medicine Rusty Vee M.D. 200 [place] [phone] 06/22/2022 Diagnostic Pulmonary Medicine Rusty Vee M.D. [address] [place] [phone] 06/22/2022 Appointment Radiology Rusty Vee M.D. [address] [place] [phone] 06/23/2022 Clinical Communication Admitting/Central Scheduling 06/28/2022 Appointment Pulmonary Medicine Rusty Vee M.D. [address] [place] [phone] 06/28/2022 Appointment Pulmonary Medicine Rusty Vee M.D. [address] [place] [phone] documented as of this encounter Visit Diagnoses Not on filedocumented in this encounter
--- OUTSIDE RECORDS SUMMARY | 2022-05-25 21:18 | XMS_ITS | Encounter Summary ---
:1975 Author Organization [facility] Address [address] [place] [address] Care Team Providers Name Role Phone Unavailable Primary Care Provider Unavailable Encounter Details Date Type Department Care Team Description 05/26/2009 Hospital Encounter [facility] Masrha Garibay M.D. [address] [place], [place] [address] (Wo rk) Social History [...] at Date Recorded Female 05/03/2022 7:07 PM DRUG PURCHASER documented as of this encounter Miscellaneous Notes Telephone Encounter - Marya Alvarez L.P.N. - 05/26/2009 12:00 AM CST [id number] Situation/What is the patients concern/need: Mom needs refills Clinical Background/Recent Intervention: Called to discuss her concern that the letter patient got states that she cannot get refills of coumadin. Per her visit with specialist in November, needs to stay on indefinately. Discussed that the letterwas gererated in accordance to the fact that pt is over due for annual. Does have TRANSPORT RN appt in June and Mom feels does not need further visit with you. Recommendation/Patient Request: If ok, Accepting this Rx will be faxed directly to pharmacy. Best number(s) to reach patient: mom-Fabiola [phone]. Source[facility] Document Id: [id number] Electronically signed by Conversion, [facility] Promotional Representative [id number] at 11/27/2016 8:06 PM CDT Telephone Encounter - Sridhar Garibay M.D. - 05/26/2009 12:00 AM DRUG PURCHASER [id number] I will refill but obviously would recommend she see me at least annually. Thanks. Source: [facility] Document Id: [id number] Electronically signed by Conversion, [facility] Promotional Representative [id number] at 11/27/2016 8:06 PM CDT Telephone Encounter - Marya Alvarez L.P.N. - 05/26/2009 12:00 AM CST [id number] Called mom to inform of your request and refill. She will encourage patient to make appt. Source: [facility] Document Id: [id number] Electronically signed by Conversion, [facility] Promotional Representative [id number] at 11/27/2016 8:06 PM CDT documented in this encounter Plan of Treatment Upcoming Encounters Date Type Specialty Care Team Description 06/22/2022 Appointment Laboratory Medicine Rusty Vee M.D. 200 [place] [phone] 06/22/2022 Diagnostic Pulmonary Medicine Rusty Vee M.D. [address] [place] [phone] 06/22/2022 Diagnostic Pulmonary Medicine Rusty Vee M.D. [address] [place] [phone] 06/22/2022 Appointment Radiology Rusty Vee M.D. [address] [place] [phone] 06/23/2022 Clinical Communication Admitting/Central Scheduling 06/28/2022 Appointment Pulmonary Medicine Rusty Vee M.D. [address] [place] [phone] 06/28/2022 Appointment Pulmonary Medicine Rusty Vee M.D. [address] [place] [phone] documented as of this encounter Visit Diagnoses Not on filedocumented in this encounter
--- OUTSIDE RECORDS SUMMARY | 2022-05-25 21:18 | XMS_ITS | Encounter Summary ---
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 200 [place] [phone] 06/22/2022 Diagnostic Pulmonary Medicine Rusty Vee M.D. 200 [place] [phone] 06/22/2022 Diagnostic Pulmonary Medicine Rusty Vee M.D. [address] [place] [phone] 06/22/2022 Appointment Radiology Rusty Vee M.D. [address] [place] [phone] 06/23/2022 Clinical Communication Admitting/Central Scheduling 06/28/2022 Appointment Pulmonary Medicine Rusty Vee M.D. [address] [place] [phone] 06/28/2022 Appointment Pulmonary Medicine Rusty Vee M.D. [address] [place] [phone] documented as of this encounter Visit Diagnoses Not on filedocumented in this encounter
--- OUTSIDE RECORDS SUMMARY | 2022-05-25 21:18 | XMS_ITS | Encounter Summary ---
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 200 [place] [phone] 06/22/2022 Diagnostic Pulmonary Medicine Rusty Vee M.D. 200 [place] [phone] 06/22/2022 Diagnostic Pulmonary Medicine Rusty Vee M.D. [address] [place] [phone] 06/22/2022 Appointment Radiology Rusty Vee M.D. [address] [place] [phone] 06/23/2022 Clinical Communication Admitting/Central Scheduling 06/28/2022 Appointment Pulmonary Medicine Rusty Vee M.D. [address] [place] [phone] 06/28/2022 Appointment Pulmonary Medicine Rusty Vee M.D. [address] [place] [phone] documented as of this encounter Visit Diagnoses Not on filedocumented in this encounter
--- OUTSIDE RECORDS SUMMARY | 2022-05-25 21:18 | XMS_ITS | Encounter Summary ---
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 - 09/08/2009 2:40 PM CDT [id number] Hue Mia Carol [address] [facility] [address] [facility] September 08, 2009 Dear Ms. Hue Bellamy Carol: Your Lab today was: INR 2.67 09/08/2009 Your target range for your condition is: 2 - 3 You should: CONTINUE YOUR CURRENT DOSE Your Coumadin Tablet Strength should be: 5 mg Daily Dose: SUN:2.5mg MON:5mg TUE:2.5mg WED:2.5mg THUR:5mg FRI:2.5mg SAT:2.5mg Number of Pills to take each day: SUN:06/27 MON:1 TUE:2 WED:06/27 THUR:1 FRI:06/27 SAT:06/27 Your next lab appointment is scheduled for: 10/06/2009 [facility] labs must be drawn before 3 PM. [facility] labs must be drawn before 12 NOON. If you have questions regarding any of the above information or feel the information is not accurateplease call [phone] or ext. [phone]. Thank you, Love Medina [facility] Clinic staff: Eliana Farooq, RN; Antonia Mcclellan, RN; Fina Peres, RN; Ermelinda Casas, RN; Mima Campo RN; Love Medina RN Source: [facility] RWMCHXTRANSXRTFSYS Document Id: [id number] documented in this encounter Plan of Treatment Upcoming Encounters Date Type Specialty Care Team Description 06/22/2022 Appointment Laboratory Medicine Rusty Vee M.D. 200 [place] [phone] 06/22/2022 Diagnostic Pulmonary Medicine Rusty Vee M.D. 200 [place] [phone] 06/22/2022 Diagnostic Pulmonary Medicine Rusty Vee M.D. [address] [place] [phone] 06/22/2022 Appointment Radiology Rusty Vee M.D. [address] [place] [phone] 06/23/2022 Clinical Communication Admitting/Central Scheduling 06/28/2022 Appointment Pulmonary Medicine Rusty Vee M.D. [address] [place] [phone] 06/28/2022 Appointment Pulmonary Medicine Rusty Vee M.D. [address] [place] [phone] documented as of this encounter Visit Diagnoses Not on filedocumented in this encounter
--- OUTSIDE RECORDS SUMMARY | 2022-05-25 21:18 | XMS_ITS | Encounter Summary ---
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 - 07/07/2009 11:00 AM CST [id number] Hue Bellamy Carol [address] [place] [address] July 07, 2009 Dear Ms. Hue Bellamy Carol: Your Lab today was: INR 2.53 07/07/09 Your target range for your condition is: 2 - 3 You should: CONTINUE YOUR CURRENT DOSE Your Coumadin Tablet Strength should be: 5 mg Daily Dose: SUN:2.5mg MON:5mg TUE:2.5mg WED:2.5mg THUR:5mg FRI:2.5mg SAT:2.5mg Number of Pills to take each day: SUN:06/27 MON:1 TUE:06/27 WED:06/27 THUR:1 FRI:06/27 SAT:06/27 Your next lab appointment is scheduled for: 08/04/2009 [facility] labs must be drawn before 3 PM. [facility] labs must be drawn before 12 NOON. If you have questions regarding any of the above information or feel the information is not accurateplease call [phone] or ext. [phone]. Thank you, Love Medina [facility] Clinic staff: Eliana Farooq, RN; Antonia Mcclellan, RN; Fina Peres, RN; Ermelinda aCsas, RN; Mima Campo RN; Love Medina RN Source: [facility] RWHXTRANSXRTFSYS Document Id: [id number] Electronically signed by Lay [facility] Roller Die Cutting Machine Operator [id number] at 11/27/2016 7:09 AM CDT documented in this encounter Plan of Treatment Upcoming Encounters Date Type Specialty Care Team Description 06/22/2022 Appointment Laboratory Medicine Rusty Vee M.D. 200 [place] [phone] 06/22/2022 Diagnostic Pulmonary Medicine Rusty Vee M.D. [address] [place] [phone] 06/22/2022 Diagnostic Pulmonary Medicine Rusty Vee M.D. [address] [place] [phone] 06/22/2022 Appointment Radiology Rusty Vee M.D. [address] [place] [phone] 06/23/2022 Clinical Communication Admitting/Central Scheduling 06/28/2022 Appointment Pulmonary Medicine Rusty Vee M.D. [address] [place] [phone] 06/28/2022 Appointment Pulmonary Medicine Rusty Vee M.D. [address] [place] [phone] documented as of this encounter Visit Diagnoses Not on filedocumented in this encounter
--- OUTSIDE RECORDS SUMMARY | 2022-05-25 21:18 | XMS_ITS | Encounter Summary ---
:1975 Author Organization [facility] Address [address] [place] [address] Care Team Providers Name Role Phone Unavailable Primary Care Provider Unavailable Encounter Details Date Type Department Care Team Description 08/29/2008 Hospital Encounter [facility]X [facility] ANTICOAG Provider, His torical [...] Date Recorded Female 05/03/2022 7:07 PM DATA ENTRY ANALYST documented as of this encounter Miscellaneous Notes Miscellaneous - Fina Peres, GilmaNMichael - 08/29/2008 12:20 PM CST [id number] Hue Mia Carol [address] [place] [address] August 29, 2008 Dear Michael Hue Bellamy Carol: Your Lab today was: INR 2.74 08/29/08 Your target range for your condition is: 2 - 3 You should: CONTINUE YOUR CURRENT DOSE Your Coumadin Tablet Strength should be: 5 mg Daily Dose: SUN:2.5mg MON:5mg TUE:2.5mg WED:2.5mg THUR:5mg FRI:2.5mg SAT:2.5mg Number of Pills to take each day: SUN:06/27 MON:1 TUE:06/27 WED:06/27 TH:1 FRI:06/27 SAT:06/27 Your next lab appointment is scheduled for: 09/25/08 [facility] labs must be drawn before 3 PM. [facility] labs must be drawn before 12 NOON. If you have questions regarding any of the above information or feel the information is not accurateplease call [phone] or ext. [phone]. Thank you, Fina Peres [facility] Clinic staff: Eliana Farooq, ANGELINE; Antonia Mcclellan, RN; Fina Peres, RN; Ermelinda Casas, ANGELINE; Mima Campo RN Source: [facility] RWMCHXTRANSXRTFSYS Document Id: [id number] documented in this encounter Plan of Treatment Upcoming Encounters Date Type Specialty Care Team Description 06/22/2022 Appointment Laboratory Medicine Rusty Vee M.D. 200 [place] [phone] 06/22/2022 Diagnostic Pulmonary Medicine Rusty Vee M.D. [address] [place] [phone] 06/22/2022 Diagnostic Pulmonary Medicine Rusty Vee M.D. [address] [place] [phone] 06/22/2022 Appointment Radiology Rusty Vee M.D. [address] [place] [phone] 06/23/2022 Clinical Communication Admitting/Central Scheduling 06/28/2022 Appointment Pulmonary Medicine Rusty Vee M.D. [address] [place] [phone] 06/28/2022 Appointment Pulmonary Medicine Rusty Vee M.D. [address] [place] [phone] documented as of this encounter Visit Diagnoses Not on filedocumented in this encounter
--- OUTSIDE RECORDS SUMMARY | 2022-05-25 21:18 | XMS_ITS | Encounter Summary ---
:1975 Author Organization [facility] Address [address] [place] [address] Care Team Providers Name Role Phone Unavailable Primary Care Provider Unavailable Encounter Details Date Type Department Care Team Description 12/05/2008 Hospital Encounter HX [facility] BELLAMED Swetha Riley M.D. 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 - 12/05/2008 11:00 AM CDT [id number] Huejuanjose Medina is a consult from Dr Rich [...] physical exam-pleasant, good historian. head & neck tzse-vfxv-nslzozsao cerumen., throat wnl, nose wnl, eyes wnl. [...] cleared forspecial Olypics. 3. Ear wax-irrigated. Source: [facility] RWMCHXTRANSXRTFSYS Document Id: [id number] documented in this encounter Plan of Treatment Upcoming Encounters Date Type Specialty Care Team Description 06/22/2022 Appointment Laboratory Medicine Rusty Vee M.D. [address] [place] [phone] 06/22/2022 Diagnostic Pulmonary Medicine Rusty Vee M.D. [address] [place] [phone] 06/22/2022 Diagnostic Pulmonary Medicine Rusty Vee M.D. [address] [place] [phone] 06/22/2022 Appointment Radiology Rusty Vee M.D. [address] [place] [phone] 06/23/2022 Clinical Communication Admitting/Central Scheduling 06/28/2022 Appointment Pulmonary Medicine Rusty Vee M.D. [address] [place] [phone] 06/28/2022 Appointment Pulmonary Medicine Rusty Vee M.D. [address] [place] [phone] documented as of this encounter Visit Diagnoses Not on filedocumented in this encounter
--- OUTSIDE RECORDS SUMMARY | 2022-05-25 21:18 | XMS_ITS | Encounter Summary ---
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 200 [place] [phone] 06/22/2022 Diagnostic Pulmonary Medicine Rusty Vee M.D. 200 [place] [phone] 06/22/2022 Diagnostic Pulmonary Medicine Rusty Vee M.D. [address] [place] [phone] 06/22/2022 Appointment Radiology Rusty Vee M.D. [address] [place] [phone] 06/23/2022 Clinical Communication Admitting/Central Scheduling 06/28/2022 Appointment Pulmonary Medicine Rusty Vee M.D. [address] [place] [phone] 06/28/2022 Appointment Pulmonary Medicine Rusty Vee M.D. [address] [place] [phone] documented as of this encounter Visit Diagnoses Not on filedocumented in this encounter
--- OUTSIDE RECORDS SUMMARY | 2022-05-25 21:18 | XMS_ITS | Encounter Summary ---
:1975 Author Organization [facility] Address [address] [place] [address] Care Team Providers Name Role Phone Unavailable Primary Care Provider Unavailable Encounter Details Date Type Department Care Team Description 05/05/2009 Hospital Encounter H[facility] ANTICOAG Provider, His torical [...] at Date Recorded Female 05/03/2022 7:07 PM LEATHER FITTER documented as of this encounter Plan of Treatment Upcoming Encounters Date Type Specialty Care Team Description 06/22/2022 Appointment Laboratory Medicine Rusty Vee M.D. 200 [place] [phone] 06/22/2022 Diagnostic Pulmonary Medicine Rusty Vee M.D. 200 [place] [phone] 06/22/2022 Diagnostic Pulmonary Medicine Rusty Vee M.D. [address] [place] [phone] 06/22/2022 Appointment Radiology Rusty Vee M.D. [address] [place] [phone] 06/23/2022 Clinical Communication Admitting/Central Scheduling 06/28/2022 Appointment Pulmonary Medicine Rusty Vee M.D. [address] [place] [phone] 06/28/2022 Appointment Pulmonary Medicine Rusty Vee M.D. [address] [place] [phone] documented as of this encounter Visit Diagnoses Not on filedocumented in this encounter
--- OUTSIDE RECORDS SUMMARY | 2022-05-25 21:18 | XMS_ITS | Encounter Summary ---
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 200 [place] [phone] 06/22/2022 Diagnostic Pulmonary Medicine Rusty Vee M.D. 200 [place] [phone] 06/22/2022 Diagnostic Pulmonary Medicine Rusty Vee M.D. [address] [place] [phone] 06/22/2022 Appointment Radiology Rusty Vee M.D. [address] [place] [phone] 06/23/2022 Clinical Communication Admitting/Central Scheduling 06/28/2022 Appointment Pulmonary Medicine Rusty Vee M.D. [address] [place] [phone] 06/28/2022 Appointment Pulmonary Medicine Rusty Vee M.D. [address] [place] [phone] documented as of this encounter Visit Diagnoses Not on filedocumented in this encounter
--- OUTSIDE RECORDS SUMMARY | 2022-05-25 21:18 | XMS_ITS | Encounter Summary ---
:1975 Author Organization [facility] Address [address] [place] [address] Care Team Providers Name Role Phone Unavailable Primary Care Provider Unavailable Encounter Details Date Type Department Care Team Description 06/30/2009 Hospital Encounter HX [facility] Marsha Garibay M.D. [address] [place], [place] [address] (Wo rk) Social History [...] at Date Recorded Female 05/03/2022 7:07 PM HOPPER FILLER documented as of this encounter Miscellaneous Notes Miscellaneous - Conversion, Historical Provider Ser - 06/30/2009 12:00 AM HOPPER FILLER [id number] June 30, 2009 Hue Bellamy Carol [address] [place] [address] RE: Consent/Signature Form Account Number: Insurance: Dear Ms. Muse, It has come to our attention that [...] insurance benefits to be paid directly to [facility], realizing I am responsible to pay non-covered services, or all charges if there is no insurance coverage. I hereby authorize the release of pertinent medical information to insurance carriers, health maintenance organizations, government payors or third democrat administrators for billing, fraud investigation or quality of care purposes as outlined in my policy documents. The signature on this document represents my authorization for all past claims within the past 4 months as well as current claims for the next 12 months. <Name> <Date> Please feel free to contact our office at [phone] or toll free at if you have questions. Sincerely, [facility] Patient Financial Services env Source: [facility] RWHXTRANSXRTFSYS Document Id: [id number] documented in this encounter Plan of Treatment Upcoming Encounters Date Type Specialty Care Team Description 06/22/2022 Appointment Laboratory Medicine Rusty Vee M.D. [address] [place] [phone] 06/22/2022 Diagnostic Pulmonary Medicine Rusty Vee M.D. [address] [place] [phone] 06/22/2022 Diagnostic Pulmonary Medicine Rusty Vee M.D. [address] [place] [phone] 06/22/2022 Appointment Radiology Rusty Vee M.D. [address] [place] [address] [phone] 06/23/2022 Clinical Communication Admitting/Central Scheduling 06/28/2022 Appointment Pulmonary Medicine Rusty Vee M.D. [address] [place] [phone] 06/28/2022 Appointment Pulmonary Medicine Rusty Vee M.D. [address] [place] [phone] documented as of this encounter Visit Diagnoses Not on filedocumented in this encounter
--- OUTSIDE RECORDS SUMMARY | 2022-05-25 21:18 | XMS_ITS | Encounter Summary ---
:1975 Author Organization [facility] Address [address] [place] [address] Care Team Providers Name Role Phone Unavailable Primary Care Provider Unavailable Encounter Details Date Type Department Care Team Description 07/17/2009 Hospital Encounter HX [facility] Kalyn Stafford M.D. 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 - 07/17/2009 3:30 PM CST [id number] Hue is a 34 year old here for her annual exam. Obstetric History T0 E0 M0 L0 using none for contraception. 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 Her menses are [...] Negative GI: Negative BREAST: Negative : Negative IP/MOSAIC TECHNICIAN: Negative CV: Negative PULMONARY: Negative MUSCULOSKELETAL: Negative [...] scattered benign nevi ASSESSMENT AND PLAN: Annual Pond Worker exam. 2. Protein S deficiency, DVT-lifelong coumadin. 3. Cerumen impaction-irrigated 4. Hematuria- about once a month, will check UA. If +hematuria then will refer to urology Health maintenance includes: H1N1. Pap every 3 yrs-never sexually active, last one 05/03, fasting lipids, FBS, TSH with her next PT/PTT. Source: [facility] RWHXTRANSXRTFSYS Document Id: [id number] Electronically signed by Conversion, [facility] Manager Of Finance [id number] at 11/27/2016 7:09 AM CDT Conversion, Historical Provider Ser - 07/17/2009 3:30 PM CST [id number] Hue Medina is a 34 year old female. Patient received: FLU H1N1 INJECTION Patient Questionaire: I have a fever or feel ill today? No I have an allergy to eggs, gelatin or thimerosal? No I have had a reaction to the flu vaccine the past? No I have had Guillain-Echo syndrome? No VIS information given Source: [facility] RWHXTRANSXRTFSYS Document Id: [id number] documented in this encounter Plan of Treatment Upcoming Encounters Date Type Specialty Care Team Description 06/22/2022 Appointment Laboratory Medicine Rusty Vee M.D. [address] [place] [phone] 06/22/2022 Diagnostic Pulmonary Medicine Rusty Vee M.D. [address] [place] [phone] 06/22/2022 Diagnostic Pulmonary Medicine Rusty Vee M.D. [address] [place] [phone] 06/22/2022 Appointment Radiology Rusty Vee M.D. [address] [place] [phone] 06/23/2022 Clinical Communication Admitting/Central Scheduling 06/28/2022 Appointment Pulmonary Medicine Rusty Vee M.D. [address] [place] [phone] 06/28/2022 Appointment Pulmonary Medicine Rutsy Vee M.D. [address] [place] [phone] documented as of this encounter Visit Diagnoses Not on filedocumented in this encounter
--- OUTSIDE RECORDS SUMMARY | 2022-05-25 21:18 | XMS_ITS | Encounter Summary ---
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 200 [place] [phone] 06/22/2022 Diagnostic Pulmonary Medicine Rusty Vee M.D. 200 [place] [phone] 06/22/2022 Diagnostic Pulmonary Medicine Rusty Vee M.D. [address] [place] [phone] 06/22/2022 Appointment Radiology Rusty Vee M.D. [address] [place] [phone] 06/23/2022 Clinical Communication Admitting/Central Scheduling 06/28/2022 Appointment Pulmonary Medicine Rusty Vee M.D. [address] [place] [phone] 06/28/2022 Appointment Pulmonary Medicine Rusty Vee M.D. [address] [place] [phone] documented as of this encounter Visit Diagnoses Not on filedocumented in this encounter
--- OUTSIDE RECORDS SUMMARY | 2022-05-25 21:18 | XMS_ITS | Encounter Summary ---
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 - 06/02/2009 9:00 AM CST [id number] Hue Bellamy Carol [address] [place] [address] June 02, 2009 Dear Ms. Hue Bellamy [...] same day with Dr. Kim) [facility] labs must be drawn before 3 PM. [facility] labs must be drawn before 12 NOON. If you have questions regarding any of the above information or feel the information is not accurateplease call [phone] or ext. [phone]. Thank you, Love Medina [facility] staff: Eliana Farooq, RN; Antonia Mcclellan, RN; Fina Peres, ANGELINE; Ermelinda Casas RN; Mima Campo, ANGELINE; Love Medina, RN Source: [facility] Document Id: [id number] [place] - Love Medina RMichaelN. - 06/02/2009 9:00 AM CST [id number] Hue Mia Carol [address] [place] [address] June 02, 2009 Dear Ms. Hue Bellamy [...] lab appointment is scheduled for: [facility] labs must be drawn before 3 PM. [facility] labs must be drawn before 12 NOON. If you have questions regarding any of the above information or feel the information is not accurateplease call [phone] or ext. [phone]. Thank you, Love Medina [facility] staff: Eliana Farooq, RN; Antonia Mcclellan, RN; Fina Peres, RN; Ermelinda Casas, RN; Mima Campo, RN; Love Medina, RN Source: [facility] Document Id: [id number] Electronically signed by Lay [facility] [employer] [id number] at 11/27/2016 8:06 PM CDT documented in this encounter Plan of Treatment Upcoming Encounters Date Type Specialty Care Team Description 06/22/2022 Appointment Laboratory Medicine Rusty Vee M.D. [address] [place] [phone] 06/22/2022 Diagnostic Pulmonary Medicine Rusty Vee M.D. [address] [place] [phone] 06/22/2022 Diagnostic Pulmonary Medicine Rusty Vee M.D. [address] [place] [address] [phone] 06/22/2022 Appointment Radiology Rusty Vee M.D. [address] [place] [phone] 06/23/2022 Clinical Communication Admitting/Central Scheduling 06/28/2022 Appointment Pulmonary Rusty Mattson M.D. [address] [place] [address] [phone] 06/28/2022 Appointment Pulmonary Medicine Rusty Vee M.D. [address] [place] [phone] documented as of this encounter Visit Diagnoses Not on filedocumented in this encounter
--- OUTSIDE RECORDS SUMMARY | 2022-05-25 21:18 | XMS_ITS | Encounter Summary ---
:1975 Author Organization [facility] Address [address] [place] [address] Care Team Providers Name Role Phone Unavailable Primary Care Provider Unavailable Encounter Details Date Type Department Care Team Description 12/23/2008 Hospital Encounter 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 200 [place] [phone] 06/22/2022 Diagnostic Pulmonary Medicine Rusty Vee M.D. 200 [place] [phone] 06/22/2022 Diagnostic Pulmonary Medicine Rusty Vee M.D. [address] [place] [phone] 06/22/2022 Appointment Radiology Rusty Vee M.D. [address] [place] [phone] 06/23/2022 Clinical Communication Admitting/Central Scheduling 06/28/2022 Appointment Pulmonary Medicine Rusty Vee M.D. [address] [place] [phone] 06/28/2022 Appointment Pulmonary Medicine Rusty Vee M.D. [address] [place] [phone] documented as of this encounter Visit Diagnoses Not on filedocumented in this encounter
--- OUTSIDE RECORDS SUMMARY | 2022-05-25 21:18 | XMS_ITS | Encounter Summary ---
:1975 Author Organization [facility] Address [address] [place] [address] Care Team Providers Name Role Phone Unavailable Primary Care Provider Unavailable Encounter Details Date Type Department Care Team Description 04/07/2009 Hospital Encounter [facility] ANTICOAG Provider, His torical Social [...] or relatives? How often do you attend [employer] or More than 4 times per year 05/04/2022 church services? 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 200 [place] [phone] 06/22/2022 Diagnostic Pulmonary Medicine Rusty Vee M.D. 200 [place] [phone] 06/22/2022 Diagnostic Pulmonary Medicine Rusty Vee M.D. [address] [place] [phone] 06/22/2022 Appointment Radiology Rusty Vee M.D. [address] [place] [phone] 06/23/2022 Clinical Communication Admitting/Central Scheduling 06/28/2022 Appointment Pulmonary Medicine Rusty Vee M.D. [address] [place] [phone] 06/28/2022 Appointment Pulmonary Medicine Rusty Vee M.D. [address] [place] [phone] documented as of this encounter Visit Diagnoses Not on filedocumented in this encounter
--- OUTSIDE RECORDS SUMMARY | 2022-05-25 21:18 | XMS_ITS | Encounter Summary ---
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 200 [place] [phone] 06/22/2022 Diagnostic Pulmonary Medicine Rusty Vee M.D. 200 [place] [phone] 06/22/2022 Diagnostic Pulmonary Medicine Rusty Vee M.D. [address] [place] [phone] 06/22/2022 Appointment Radiology Rusty Vee M.D. [address] [place] [phone] 06/23/2022 Clinical Communication Admitting/Central Scheduling 06/28/2022 Appointment Pulmonary Medicine Rusty Vee M.D. [address] [place] [phone] 06/28/2022 Appointment Pulmonary Medicine Rusty Vee M.D. [address] [place] [phone] documented as of this encounter Visit Diagnoses Not on filedocumented in this encounter
--- OUTSIDE RECORDS SUMMARY | 2022-05-25 21:18 | XMS_ITS | Encounter Summary ---
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 200 [place] [phone] 06/22/2022 Diagnostic Pulmonary Medicine Rusty Vee M.D. 200 [place] [phone] 06/22/2022 Diagnostic Pulmonary Medicine Rusty Vee M.D. [address] [place] [phone] 06/22/2022 Appointment Radiology Rusty Vee M.D. [address] [place] [phone] 06/23/2022 Clinical Communication Admitting/Central Scheduling 06/28/2022 Appointment Pulmonary Medicine Rusty Vee M.D. [address] [place] [phone] 06/28/2022 Appointment Pulmonary Medicine Rusty Vee M.D. [address] [place] [phone] documented as of this encounter Visit Diagnoses Not on filedocumented in this encounter
--- OUTSIDE RECORDS SUMMARY | 2022-05-25 21:18 | XMS_ITS | Encounter Summary ---
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 200 [place] [phone] 06/22/2022 Diagnostic Pulmonary Medicine Rusty Vee M.D. 200 [place] [phone] 06/22/2022 Diagnostic Pulmonary Medicine Rusty Vee M.D. [address] [place] [phone] 06/22/2022 Appointment Radiology Rusty Vee M.D. [address] [place] [phone] 06/23/2022 Clinical Communication Admitting/Central Scheduling 06/28/2022 Appointment Pulmonary Medicine Rusty Vee M.D. [address] [place] [phone] 06/28/2022 Appointment Pulmonary Medicine Rusty Vee M.D. [address] [place] [phone] documented as of this encounter Visit Diagnoses Not on filedocumented in this encounter
--- OUTSIDE RECORDS SUMMARY | 2022-05-25 21:18 | XMS_ITS | Encounter Summary ---
:1975 Author Organization [facility] Address [address] [place] [address] Care Team Providers Name Role Phone Unavailable Primary Care Provider Unavailable Encounter Details Date Type Department Care Team Description 05/06/2009 Hospital Encounter [facility] FAMILYPRA Marsha Garibay M.D. 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 - 05/06/2009 12:00 AM CST [id number] Hue Bellamy Carol [address] [place] [address] May 06, 2009 Dear Hue, Your current [...] future. You may call our office at [phone] in Family Medicine to schedule a visit. Please disregard this notice if you have already made an appointment. Sincerely, [facility], [address] [place] [address] Source: [facility] Document Id: [id number] Electronically signed by Conversion, [facility] Supervising Deputy [id number] at 11/27/2016 6:55 PM CDT Telephone Encounter - Conversion, Historical Provider Ser - 05/06/2009 12:00 AM CST [id number] Accepting this Rx will FAX it directly to the pharmacy. Source: [facility] Document Id: [id number] Telephone Encounter - Antonia Mcclellan R.N. - 05/06/2009 12:00 AM CST [id number] Prescription approved for 1 month per RN refill protocol. Letter sent to patient for recheck appt. Last visit:05/16/08 Last 1 Encounter BP Readings: Date BP 12/05/2008 100/58 No exclusionary diagnoses. INR 2.41 05/05/09 Source: [facility] Document Id: [id number] Electronically signed by Conversion, [facility] Supervising Deputy [id number] at 11/27/2016 6:55 PM CDT documented in this encounter Plan of Treatment Upcoming Encounters Date Type Specialty Care Team Description 06/22/2022 Appointment Laboratory Medicine Rusty Vee M.D. [address] [place] [phone] 06/22/2022 Diagnostic Pulmonary Medicine Rusty Vee M.D. [address] [place] [address] [phone] 06/22/2022 Diagnostic Pulmonary Medicine Rusty Vee M.D. [address] [place] [address] [phone] 06/22/2022 Appointment Radiology Rusty Vee M.D. [address] [place] [address] [phone] 06/23/2022 Clinical Communication Admitting/Central Scheduling 06/28/2022 Appointment Pulmonary Medicine Rusty Vee M.D. [address] [place] [address] [phone] 06/28/2022 Appointment Pulmonary Medicine Rusty Vee M.D. [address] [place] [phone] documented as of this encounter Visit Diagnoses Not on filedocumented in this encounter
--- OUTSIDE RECORDS SUMMARY | 2022-05-25 21:18 | XMS_ITS | Encounter Summary ---
:1975 Author Organization [facility] Address [address] [place] [address] Care Team Providers Name Role Phone Unavailable Primary Care Provider Unavailable Encounter Details Date Type Department Care Team Description 06/04/2009 Hospital Encounter [facility] Andrea Whipple M.D. 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 [address] [place] [phone] 06/22/2022 Diagnostic Pulmonary Medicine Rusty Vee M.D. [address] [place] [phone] 06/22/2022 Diagnostic Pulmonary Medicine Rusty Vee M.D. [address] [place] [phone] 06/22/2022 Appointment Radiology Rusty Vee M.D. [address] [place] [phone] 06/23/2022 Clinical Communication Admitting/Central Scheduling 06/28/2022 Appointment Pulmonary Medicine Rusty Vee M.D. [address] [place] [phone] 06/28/2022 Appointment Pulmonary Medicine Rusty Vee M.D. [address] [place] [phone] documented as of this encounter Visit Diagnoses Not on filedocumented in this encounter
--- OUTSIDE RECORDS SUMMARY | 2022-05-25 21:19 | XMS_ITS | Encounter Summary ---
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 200 [place] [phone] 06/22/2022 Diagnostic Pulmonary Medicine Rusty Vee M.D. 200 [place] [phone] 06/22/2022 Diagnostic Pulmonary Medicine Rusty Vee M.D. [address] [place] [phone] 06/22/2022 Appointment Radiology Rusty Vee M.D. [address] [place] [phone] 06/23/2022 Clinical Communication Admitting/Central Scheduling 06/28/2022 Appointment Pulmonary Medicine Rusty Vee M.D. [address] [place] [phone] 06/28/2022 Appointment Pulmonary Medicine Rusty Vee M.D. [address] [place] [phone] documented as of this encounter Visit Diagnoses Not on filedocumented in this encounter
--- OUTSIDE RECORDS SUMMARY | 2022-05-25 21:19 | XMS_ITS | Encounter Summary ---
:[address] 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 200 [place] [phone] 06/22/2022 Diagnostic Pulmonary Medicine Rusty Vee M.D. 200 [place] [phone] 06/22/2022 Diagnostic Pulmonary Medicine Rusty Vee M.D. [address] [place] [phone] 06/22/2022 Appointment Radiology Rusty Vee M.D. [address] [place] [phone] 06/23/2022 Clinical Communication Admitting/Central Scheduling 06/28/2022 Appointment Pulmonary Medicine Rusty Vee M.D. [address] [place] [phone] 06/28/2022 Appointment Pulmonary Medicine Rusty Vee M.D. [address] [place] [phone] documented as of this encounter Visit Diagnoses Not on filedocumented in this encounter
--- OUTSIDE RECORDS SUMMARY | 2022-05-25 21:19 | XMS_ITS | Encounter Summary ---
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 - 12/24/2007 3:45 PM CDT [id number] Quick Note: Called mom with result. Still has mildy low protein s off coumadin. In her case i would not recommend lifelong coumadin unless her ddimer were elevated which would put her at increased risk. She will stop back to lab in 1 month and check protein s again (could be normal after a little longer off coumadin) and d- dimer. Source: [facility] Document Id: [id number] documented in this encounter Plan of Treatment Upcoming Encounters Date Type Specialty Care Team Description 06/22/2022 Appointment Laboratory Medicine Rusty Vee M.D. [address] [place] [phone] 06/22/2022 Diagnostic Pulmonary Medicine Rusty Vee M.D. [address] [place] [phone] 06/22/2022 Diagnostic Pulmonary Medicine Rusty Vee M.D. [address] [place] [address] [phone] 06/22/2022 Appointment Radiology Rusty Vee M.D. [address] [place] [phone] 06/23/2022 Clinical Communication Admitting/Central Scheduling 06/28/2022 Appointment Pulmonary Medicine Rusty Vee M.D. [address] [place] [phone] 06/28/2022 Appointment Pulmonary Medicine Rusty Vee M.D. [address] [place] [address] [phone] documented as of this encounter Visit Diagnoses Not on filedocumented in this encounter
--- OUTSIDE RECORDS SUMMARY | 2022-05-25 21:19 | XMS_ITS | Encounter Summary ---
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 - 04/15/2008 4:15 PM CDT [id number] Hue Medina is a 33 year old female. Patient received: FLUZONE INJECTION Patient Questionaire: I have a fever or feel ill today? No I have an allergy to eggs, gelatin or thimerosal? No I have had a reaction to the flu vaccine the past? No I have had Guillain-[place] syndrome? No VIS information given Source: [facility] RWMCHXTRANSXRTFSYS Document Id: [id number] Electronically signed by Lay, [facility] Social Worker Psychiatric [id number] at 11/28/2016 4:45 AM CDT documented in this encounter Plan of Treatment Upcoming Encounters Date Type Specialty Care Team Description 06/22/2022 Appointment Laboratory Medicine Rusty Vee M.D. [address] [place] [address] [phone] 06/22/2022 Diagnostic Pulmonary Medicine Rusty Vee M.D. [address] [place] [address] [phone] 06/22/2022 Diagnostic Pulmonary Medicine Rusty Vee M.D. [address] [place] [address] [phone] 06/22/2022 Appointment Radiology Rusty Vee M.D. [address] [place] [address] [phone] 06/23/2022 Clinical Communication Admitting/Central Scheduling 06/28/2022 Appointment Pulmonary Medicine Rusty Vee M.D. [address] [place] [address] [phone] 06/28/2022 Appointment Pulmonary Medicine Rusty Vee M.D. [address] [place] [address] [phone] documented as of this encounter Visit Diagnoses Not on filedocumented in this encounter
--- OUTSIDE RECORDS SUMMARY | 2022-05-25 21:19 | XMS_ITS | Encounter Summary ---
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 200 [place] [phone] 06/22/2022 Diagnostic Pulmonary Medicine Rusty Vee M.D. 200 [place] [phone] 06/22/2022 Diagnostic Pulmonary Medicine Rusty Vee M.D. [address] [place] [phone] 06/22/2022 Appointment Radiology Rusty Vee M.D. [address] [place] [phone] 06/23/2022 Clinical Communication Admitting/Central Scheduling 06/28/2022 Appointment Pulmonary Medicine Rusty Vee M.D. [address] [place] [phone] 06/28/2022 Appointment Pulmonary Medicine Rusty Vee M.D. [address] [place] [phone] documented as of this encounter Visit Diagnoses Not on filedocumented in this encounter
--- OUTSIDE RECORDS SUMMARY | 2022-05-25 21:19 | XMS_ITS | Encounter Summary ---
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 200 [place] [phone] 06/22/2022 Diagnostic Pulmonary Medicine Rusty Vee M.D. 200 [place] [phone] 06/22/2022 Diagnostic Pulmonary Medicine Rusty Vee M.D. [address] [place] [phone] 06/22/2022 Appointment Radiology Rusty Vee M.D. [address] [place] [phone] 06/23/2022 Clinical Communication Admitting/Central Scheduling 06/28/2022 Appointment Pulmonary Medicine Rusty Vee M.D. [address] [place] [phone] 06/28/2022 Appointment Pulmonary Medicine Rusty Vee M.D. [address] [place] [phone] documented as of this encounter Visit Diagnoses Not on filedocumented in this encounter
--- OUTSIDE RECORDS SUMMARY | 2022-05-25 21:19 | XMS_ITS | Encounter Summary ---
:1975 Author Organization [facility] Address [address] [place] [address] Care Team Providers Name Role Phone Unavailable Primary Care Provider Unavailable Encounter Details Date Type Department Care Team Description 01/28/2008 Hospital Encounter [facility] Marsha Garibay M.D. 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 - 01/28/2008 3:10 PM CDT [id number] CLINIC ENCOUNTER SUBJECTIVE: Patient presents today for [...] the INR clinic. Gabby Pérez/libia cc: Source: [facility] RWHXTRANSXSYS Document Id: [id number] ICIAT Sridhar Garibay M.D. - 01/28/2008 3:10 PM CDT [id number] This office note has been dictated. D/w results. More than 25 minutes was spent with the patient- more than half of which was spent in face to face consultation regarding the above diagnosis and treatment. Source: [facility] RWHXTRANSXRTFSYS Document Id: [id number] documented in this encounter Plan of Treatment Upcoming Encounters Date Type Specialty Care Team Description 06/22/2022 Appointment Laboratory Medicine Rusty Vee M.D. [address] [place] [phone] 06/22/2022 Diagnostic Pulmonary Medicine Rusty Vee M.D. [address] [place] [phone] 06/22/2022 Diagnostic Pulmonary Medicine Rusty Vee M.D. [address] [place] [phone] 06/22/2022 Appointment Radiology Rusty Vee M.D. [address] [place] [phone] 06/23/2022 Clinical Communication Admitting/Central Scheduling 06/28/2022 Appointment Pulmonary Medicine Rusty Vee M.D. [address] [place] [phone] 06/28/2022 Appointment Pulmonary Medicine Rusty Vee M.D. [address] [place] [phone] documented as of this encounter Visit Diagnoses Not on filedocumented in this encounter
--- OUTSIDE RECORDS SUMMARY | 2022-05-25 21:19 | XMS_ITS | Encounter Summary ---
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 - 05/08/2008 6:00 PM CST [id number] Hue Ima Carol [address] [place] [address] May 08, 2008 Dear Michael Hue Bellamy Carol: Your Lab today was: INR 1.61 05/08/08 Your target range for your condition is: 2 - 3 You should: CHANGE YOUR COUMADIN DOSE Your Coumadin Tablet Strength should be: 5 mg Daily Dose: SUN:2.5mg MON:5mg TUE:2.5mg WED:2.5mg THUR:5mg FRI:2.5mg SAT:2.5mg Number of Pills to take each day: SUN:06/27 MON:1 TUE:06/27 WED:06/27 THUR:1 FRI:06/27 SAT:06/27 Your next lab appointment is scheduled for: 05/15/2008 [facility] labs must be drawn before 3 PM. [facility] labs must be drawn before 12 NOON. If you have questions regarding any of the above information or feel the information is not accurateplease call [phone] or ext. [phone]. Thank you, Eliana Farooq RN [facility] Clinic staff: Eliana Farooq RN; Antonia Mcclellan RN; Radha Candelaria RN; Fina Peres RN; Ermelinda Casas RN; Mima Campo RN Source: [facility] Document Id: [id number] documented in this encounter Plan of Treatment Upcoming Encounters Date Type Specialty Care Team Description 06/22/2022 Appointment Laboratory Medicine Rusty Vee M.D. [address] [place] [phone] 06/22/2022 Diagnostic Pulmonary Medicine Rusty Vee M.D. [address] [place] [phone] 06/22/2022 Diagnostic Pulmonary Medicine Rusty Vee M.D. [address] [place] [phone] 06/22/2022 Appointment Radiology Rusty Vee M.D. [address] [place] [phone] 06/23/2022 Clinical Communication Admitting/Central Scheduling 06/28/2022 Appointment Pulmonary Medicine Rusyt Vee M.D. [address] [place] [phone] 06/28/2022 Appointment Pulmonary Medicine Rusty Vee M.D. [address] [place] [phone] documented as of this encounter Visit Diagnoses Not on filedocumented in this encounter
--- OUTSIDE RECORDS SUMMARY | 2022-05-25 21:19 | XMS_ITS | Encounter Summary ---
:1975 Author Organization [facility] Address [address] [place] [address] Care Team Providers Name Role Phone Unavailable Primary Care Provider Unavailable Encounter Details Date Type Department Care Team Description 04/01/2008 Hospital Encounter HX [facility] Marsha Garibay M.D. 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 - 04/01/2008 12:00 AM CDT [id number] Mom calls and requests call back. She would like to discuss referral to specialist. Source: [facility] Document Id: [id number] Electronically signed by Conversion, [facility] [employer] [id number] at 11/28/2016 4:45 AM CDT Telephone Encounter - Sridhar Garibay M.D. - 04/01/2008 12:00 AM CDT [id number] Nurses- Please set her up for hematology consult at [facility]. She would like second opinion on the need for coumadin. Fabiola linares i believe or Monday might be better for her. Thanks. Source: [facility] Document Id: [id number] Electronically signed by Conversion, [facility] [employer] [id number] at 11/28/2016 4:45 AM CDT Telephone Encounter - Love Medina R.N. - 04/01/2008 12:00 AM CDT [id number] Will schedule own appointment Source: [facility] Document Id: [id number] Electronically signed by Conversion, [facility] [employer] [id number] at 11/28/2016 4:45 AM CDT documented in this encounter Plan of Treatment Upcoming Encounters Date Type Specialty Care Team Description 06/22/2022 Appointment Laboratory Medicine Rusty Vee M.D. [address] [place] [phone] 06/22/2022 Diagnostic Pulmonary Medicine Rusty Vee M.D. [address] [place] [phone] 06/22/2022 Diagnostic Pulmonary Medicine Rusty Vee M.D. [address] [place] [phone] 06/22/2022 Appointment Radiology Rusty Vee M.D. [address] [place] [phone] 06/23/2022 Clinical Communication Admitting/Central Scheduling 06/28/2022 Appointment Pulmonary Medicine Rusyt Vee M.D. [address] [place] [phone] 06/28/2022 Appointment Pulmonary Medicine Rusty Vee M.D. [address] [place] [phone] documented as of this encounter Visit Diagnoses Not on filedocumented in this encounter
--- OUTSIDE RECORDS SUMMARY | 2022-05-25 21:19 | XMS_ITS | Encounter Summary ---
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 Hue Bellamy Carol: Your Lab today was: INR 2.16 05/16/08 Your target range for your condition is: 2 - 3 You should: CONTINUE YOUR CURRENT DOSE Your Coumadin Tablet Strength should be: 5 mg Daily Dose: SUN:2.5mg MON:5mg TUE:2.5mg WED:2.5mg THUR:5mg FRI:2.5mg SAT:2.5mg Number of Pills to take each day: SUN:2 MON:1 TUE:2 WED:06/27 THUR:1 FRI:06/27 SAT:06/27 Your next lab appointment is scheduled for: 05/29/08 [facility] labs must be drawn before 3 PM. [facility] labs must be drawn before 12 NOON. If you have questions regarding any of the above information or feel the information is not accurateplease call [phone] or ext. [phone]. Thank you, Radha Candelaria RN [facility] Clinic staff: Eliana Farooq RN; Antonia Mcclellan, ANGELINE; Radha Candelaria RN; Fina Peres RN; Ermelinda Casas RN; Mima Campo RN Source: [facility] Document Id: [id number] documented in this encounter Plan of Treatment Upcoming Encounters Date Type Specialty Care Team Description 06/22/2022 Appointment Laboratory Medicine Rusty Vee M.D. 200 [place] [phone] 06/22/2022 Diagnostic Pulmonary Medicine Rusty Vee M.D. [address] [place] [phone] 06/22/2022 Diagnostic Pulmonary Medicine Rusty Vee M.D. [address] [place] [phone] 06/22/2022 Appointment Radiology Rusty Vee M.D. [address] [place] [phone] 06/23/2022 Clinical Communication Admitting/Central Scheduling 06/28/2022 Appointment Pulmonary Medicine Rusty Vee M.D. [address] [place] [phone] 06/28/2022 Appointment Pulmonary Medicine Rusty Vee M.D. [address] [place] [phone] documented as of this encounter Visit Diagnoses Not on filedocumented in this encounter
--- OUTSIDE RECORDS SUMMARY | 2022-05-25 21:19 | XMS_ITS | Encounter Summary ---
:1975 Author Organization [facility] Address [address] [place] [address] Care Team Providers Name Role Phone Unavailable Primary Care Provider Unavailable Encounter Details Date Type Department Care Team Description 05/08/2008 Hospital Encounter HX [facility] Kalyn Stafford M.D. 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 - 05/08/2008 3:15 PM CST [id number] Hue is a 33 year old here for her annual exam. Obstetric History T0 P0 TAB0 SAB0 E0 M0 L0 using none for contraception. Machine Stamper HX: no abnormal paps. Her menses are [...] Negative GI: Negative BREAST: Negative : Negative FOREIGN LANGUAGES DEPARTMENT CHAIR: Negative CV: Negative PULMONARY: Negative MUSCULOSKELETAL: Negative [...] irrigate cerumen bilaterally ASSESSMENT AND PLAN: Annual Machine Stamper exam, Down's female, partially intact hymen- admits 5th finger with sig discomfort. 2.history of dysmenorrhea-had been on OCPs until DVT. Now states menses are not painful or heavy. 3. Cerumen impaction-irrigated. 4. 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 Health maintenance includes: pap smear done today. Source: [facility] RWHXTRANSXRTFSYS Document Id: [id number] Electronically signed by Conversion, [facility] Palliative Care Physician [id number] at 11/28/2016 1:34 AM CDT documented in this encounter Miscellaneous Notes Miscellaneous - Conversion, Historical Provider Ser - 05/08/2008 3:15 PM TILTROTOR CREW CHIEF [id number] Hue Medina [address] [place] [address] May 12, 2008 Dear Hue Medina, I am happy to inform you that your recent cervical cancer screening test (PAP smear) was normal. Preventative screening such as this helps insure your health for years to come. Congratulations for taking care of yourself! Please contact my office if you have any further questions. [phone]. Sincerely, Marie Kim M.D. OBSTETRICS/GYNECOLOGY [facility] Source: [facility] Document Id: [id number] Miscellaneous - Conversion, Historical Provider Ser - 05/08/2008 3:15 PM TILTROTOR CREW CHIEF [id number] Hue Medina [address] [place] [address] May 12, 2008 Dear Hue Medina, I am happy to inform you that your recent cervical cancer screening test (PAP smear) was normal. Preventative screening such as this helps insure your health for years to come. Congratulations for taking care of yourself! Please contact my office if you have any further questions. [phone]. Sincerely, Marie Kim M.D. OBSTETRICS/GYNECOLOGY [facility] Source: [facility] Document Id: [id number] documented in this encounter Plan of Treatment Upcoming Encounters Date Type Specialty Care Team Description 06/22/2022 Appointment Laboratory Medicine Rusty Vee M.D. 200 [place] [phone] 06/22/2022 Diagnostic Pulmonary Medicine Rusty Vee M.D. 200 [place] [phone] 06/22/2022 Diagnostic Pulmonary Medicine Rusty Vee M.D. 200 [place] [phone] 06/22/2022 Appointment Radiology Rusty Vee M.D. [address] [place] [phone] 06/23/2022 Clinical Communication Admitting/Central Scheduling 06/28/2022 Appointment Pulmonary Medicine Rusty Vee M.D. [address] [place] [phone] 06/28/2022 Appointment Pulmonary Medicine Rusty Vee M.D. [address] [place] [phone] documented as of this encounter Visit Diagnoses Not on filedocumented in this encounter
--- OUTSIDE RECORDS SUMMARY | 2022-05-25 21:19 | XMS_ITS | Encounter Summary ---
:1975 Author Organization [facility] Address [address] [place] [address] Care Team Providers Name Role Phone Unavailable Primary Care Provider Unavailable Encounter Details Date Type Department Care Team Description 05/16/2008 Hospital Encounter [facility] Marsha Garibya M.D. 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 - 05/16/2008 3:30 PM CST [id number] SUBJECTIVE: Hue Medina is a 33 year [...] did suggest she use her jobst. Source: [facility] RWHXTRANSXRTFSYS Document Id: [id number] documented in this encounter Plan of Treatment Upcoming Encounters Date Type Specialty Care Team Description 06/22/2022 Appointment Laboratory Medicine Rusty Vee M.D. [address] [place] [phone] 06/22/2022 Diagnostic Pulmonary Medicine Rusty Vee M.D. [address] [place] [phone] 06/22/2022 Diagnostic Pulmonary Medicine Rusty Vee M.D. [address] [place] [phone] 06/22/2022 Appointment Radiology Rusty Vee M.D. [address] [place] [phone] 06/23/2022 Clinical Communication Admitting/Central Scheduling 06/28/2022 Appointment Pulmonary Medicine Rusty Vee M.D. [address] [place] [phone] 06/28/2022 Appointment Pulmonary Medicine Rusty Vee M.D. [address] [place] [phone] documented as of this encounter Visit Diagnoses Not on filedocumented in this encounter
--- OUTSIDE RECORDS SUMMARY | 2022-05-25 21:19 | XMS_ITS | Encounter Summary ---
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 - 03/20/2008 8:30 AM CDT [id number] Hue Mia Carol [address] [place] [address] March 20, 2008 Dear Ms. Hue Bellamy Carol: Your Lab today was: INR 1.90 03/20/08 Your target range for your condition is: 2 - 3 You should: CONTINUE YOUR CURRENT DOSE Your Coumadin Tablet Strength should be: 5 mg Daily Dose: SUN:2.5mg MON:2.5mg TUE:2.5mg WED:2.5mg THUR:2.5mg FRI:2.5mg SAT:2.5mg Number of Pills to take each day: SUN:06/27 MON:06/27 TUE:06/27 WED:06/27 THUR:06/27 FRI:06/27 SAT:06/27 Your next lab appointment is scheduled for: 04/03/08 [facility] labs must be drawn before 3 PM. [facility] labs must be drawn before 12 NOON. If you have questions regarding any of the above information or feel the information is not accurateplease call [phone] or ext. [phone]. Thank you, Mima Campo [facility] staff: Eliana Farooq, RN; Antonia Mcclellan, RN; Radha Candelaria RN; Fina Peres, ANGELINE; Ermelinda Casas, RN; Mima Campo, RN Source: [facility] RWHXTRANSXRTFSYS Document Id: [id number] Electronically signed by Lay [facility] Centersylvia Vision Teacher [id number] at 11/27/2016 10:22 PM CDT documented in this encounter Plan of Treatment Upcoming Encounters Date Type Specialty Care Team Description 06/22/2022 Appointment Laboratory Medicine Rusty Vee M.D. [address] [place] [phone] 06/22/2022 Diagnostic Pulmonary Medicine Rusty Vee M.D. [address] [place] [phone] 06/22/2022 Diagnostic Pulmonary Medicine Rusty Vee M.D. [address] [place] [phone] 06/22/2022 Appointment Radiology Rusty Vee M.D. [address] [place] [phone] 06/23/2022 Clinical Communication Admitting/Central Scheduling 06/28/2022 Appointment Pulmonary Medicine Rusty Vee M.D. [address] [place] [address] 06/28/2022 Appointment Pulmonary Medicine Rusty Vee M.D. [address] [place] [address] documented as of this encounter Visit Diagnoses Not on filedocumented in this encounter
--- OUTSIDE RECORDS SUMMARY | 2022-05-25 21:19 | XMS_ITS | Encounter Summary ---
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 200 [place] [phone] 06/22/2022 Diagnostic Pulmonary Medicine Rusty Vee M.D. 200 [place] [phone] 06/22/2022 Diagnostic Pulmonary Medicine Rusty Vee M.D. [address] [place] [phone] 06/22/2022 Appointment Radiology Rusty Vee M.D. [address] [place] [phone] 06/23/2022 Clinical Communication Admitting/Central Scheduling 06/28/2022 Appointment Pulmonary Medicine Rusty Vee M.D. [address] [place] [phone] 06/28/2022 Appointment Pulmonary Medicine Rusty Vee M.D. [address] [place] [phone] documented as of this encounter Visit Diagnoses Not on filedocumented in this encounter
--- OUTSIDE RECORDS SUMMARY | 2022-05-25 21:19 | XMS_ITS | Encounter Summary ---
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 - 02/28/2008 8:15 AM CDT [id number] Hue Bellamy Carol [address] [place] [address] February 28, 2008 Dear Ms. Hue Bellamy Carol: Your Lab today was: INR 2.42 02/28/08 Your target range for your condition is: 2 - 3 You should: CONTINUE YOUR CURRENT DOSE Your Coumadin Tablet Strength should be: 5 mg Daily Dose: SUN:2.5mg MON:2.5mg TUE:2.5mg WED:2.5mg THUR:2.5mg FRI:2.5mg SAT:2.5mg Number of Pills to take each day: SUN:06/27 MON:06/27 TUE:06/27 WED:06/27 THUR:06/27 FRI:06/27 SAT:06/27 Your next lab appointment is scheduled for: 03/20/2008 [facility] labs must be drawn before 3 PM. [facility] labs must be drawn before 12 NOON. If you have questions regarding any of the above information or feel the information is not accurateplease call [phone] or ext. [phone]. Thank you, Eliana Farooq RN [facility] Clinic staff: Eliana Farooq RN; Antonia Mcclellan RN; Radha Candelaria RN; Fina Peres RN; Ermelinda Casas, ANGELINE; Mima Campo, ANGELINE Source: [facility] RWMCHXTRANSXRTFSYS Document Id: [id number] Electronically signed by Lay [facility] Islandsylvia Animal Maintenance Supervisor [id number] at 11/27/2016 10:22 PM CDT documented in this encounter Plan of Treatment Upcoming Encounters Date Type Specialty Care Team Description 06/22/2022 Appointment Laboratory Medicine Rusty Vee M.D. [address] [place] [phone] 06/22/2022 Diagnostic Pulmonary Medicine Rusty Vee M.D. [address] [place] [phone] 06/22/2022 Diagnostic Pulmonary Medicine Rusty Vee M.D. [address] [place] [phone] 06/22/2022 Appointment Radiology Rusty Vee M.D. [address] [place] [phone] 06/23/2022 Clinical Communication Admitting/Central Scheduling 06/28/2022 Appointment Pulmonary Medicine Rusty Vee M.D. [address] [place] [phone] 06/28/2022 Appointment Pulmonary Medicine Rusty Vee M.D. [address] [place] [phone] documented as of this encounter Visit Diagnoses Not on filedocumented in this encounter
--- OUTSIDE RECORDS SUMMARY | 2022-05-25 21:19 | XMS_ITS | Encounter Summary ---
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 200 [place] [phone] 06/22/2022 Diagnostic Pulmonary Medicine Rusty Vee M.D. 200 [place] [phone] 06/22/2022 Diagnostic Pulmonary Medicine Rusty Vee M.D. [address] [place] [phone] 06/22/2022 Appointment Radiology Rusty Vee M.D. [address] [place] [phone] 06/23/2022 Clinical Communication Admitting/Central Scheduling 06/28/2022 Appointment Pulmonary Medicine Rusty Vee M.D. [address] [place] [phone] 06/28/2022 Appointment Pulmonary Medicine Rusty Vee M.D. [address] [place] [phone] documented as of this encounter Visit Diagnoses Not on filedocumented in this encounter
--- OUTSIDE RECORDS SUMMARY | 2022-05-25 21:19 | XMS_ITS | Encounter Summary ---
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 - 04/03/2008 8:30 AM CDT [id number] Hue Bellamy Carol [address] [place] [address] April 03, 2008 Dear Ms. Hue Bellamy Carol: Your Lab today was: INR 1.77 04/03/08 Your target range for your condition is: 2 - 3 You should: CHANGE YOUR COUMADIN DOSE Your Coumadin Tablet Strength should be: 5 mg Daily Dose: SUN:2.5mg MON:2.5mg TUE:2.5mg WED:2.5mg THUR:5mg FRI:2.5mg SAT:2.5mg Number of Pills to take each day: SUN:06/27 MON:06/27 TUE:2 WED:06/27 THUR:1 FRI:06/27 SAT:2 Your next lab appointment is scheduled for: 04/17/08. [facility] and [facility] labs must be drawn before 3 PM. [facility] and [facility] labs must be drawn before 12 NOON. If you have questions regarding any of the above information or feel the information is not accurateplease call [phone] or ext. [phone]. Thank you, Ermelinda Casas [facility] Clinic staff: Eliana Farooq, ANGELINE; Antonia Mcclellan, RN; Radha Candelaria RN; Fina Peres RN; Ermelinda Casas RN; Mima Campo RN Source: [facility] Document Id: [id number] documented in this encounter Plan of Treatment Upcoming Encounters Date Type Specialty Care Team Description 06/22/2022 Appointment Laboratory Medicine Rusty Vee M.D. 200 [place] [phone] 06/22/2022 Diagnostic Pulmonary Medicine Rusty Vee M.D. [address] [place] [phone] 06/22/2022 Diagnostic Pulmonary Medicine Rusty Vee M.D. [address] [place] [phone] 06/22/2022 Appointment Radiology Rusty Vee M.D. [address] [place] [phone] 06/23/2022 Clinical Communication Admitting/Central Scheduling 06/28/2022 Appointment Pulmonary Medicine Rusty Vee M.D. [address] [place] [phone] 06/28/2022 Appointment Pulmonary Medicine Rusty Vee M.D. [address] [place] [phone] documented as of this encounter Visit Diagnoses Not on filedocumented in this encounter
--- OUTSIDE RECORDS SUMMARY | 2022-05-25 21:19 | XMS_ITS | Encounter Summary ---
:1975 Author Organization [facility] Address [address] [place] [address] Care Team Providers Name Role Phone Unavailable Primary Care Provider Unavailable Encounter Details Date Type Department Care Team Description 05/20/2008 Hospital Encounter HX NO MAPPING Luis Fernando Kim M.D. 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 [address] [place] [phone] 06/22/2022 Diagnostic Pulmonary Medicine Rusty Vee M.D. [address] [place] [phone] 06/22/2022 Diagnostic Pulmonary Medicine Rusty Vee M.D. [address] [place] [phone] 06/22/2022 Appointment Radiology Rusty Vee M.D. [address] [place] [phone] 06/23/2022 Clinical Communication Admitting/Central Scheduling 06/28/2022 Appointment Pulmonary Medicine Rusty Vee M.D. [address] [place] [phone] 06/28/2022 Appointment Pulmonary Medicine Rusty Vee M.D. [address] [place] [phone] documented as of this encounter Visit Diagnoses Not on filedocumented in this encounter
--- OUTSIDE RECORDS SUMMARY | 2022-05-25 21:19 | XMS_ITS | Encounter Summary ---
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 200 [place] [phone] 06/22/2022 Diagnostic Pulmonary Medicine Rusty Vee M.D. 200 [place] [phone] 06/22/2022 Diagnostic Pulmonary Medicine Rusty Vee M.D. [address] [place] [phone] 06/22/2022 Appointment Radiology Rusty Vee M.D. [address] [place] [phone] 06/23/2022 Clinical Communication Admitting/Central Scheduling 06/28/2022 Appointment Pulmonary Medicine Rusty Vee M.D. [address] [place] [phone] 06/28/2022 Appointment Pulmonary Medicine Rusty Vee M.D. [address] [place] [phone] documented as of this encounter Visit Diagnoses Not on filedocumented in this encounter
--- OUTSIDE RECORDS SUMMARY | 2022-05-25 21:19 | XMS_ITS | Encounter Summary ---
:1975 Author Organization [facility] Address [address] [place] [address] Care Team Providers Name Role Phone Unavailable Primary Care Provider Unavailable Encounter Details Date Type Department Care Team Description 01/03/2008 Hospital Encounter HX [facility] FAMILYPRA Marsha Garibay M.D. 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 - 01/03/2008 12:00 AM CDT [id number] Called mom with result. Still has mildy low protein s off coumadin. In her case i would not recommend lifelong coumadin unless her ddimer were elevated which would put her at increased risk. She will stop back to lab in 1 month and check protein s again (could be normal after a little longer off coumadin) and d- dimer. Source: [facility] RWHXTRANSXRTFSYS Document Id: [id number] documented in this encounter Plan of Treatment Upcoming Encounters Date Type Specialty Care Team Description 06/22/2022 Appointment Laboratory Medicine Rusty Vee M.D. [address] [place] [phone] 06/22/2022 Diagnostic Pulmonary Medicine Rusty Vee M.D. [address] [place] [phone] 06/22/2022 Diagnostic Pulmonary Medicine Rusty Vee M.D. [address] [place] [phone] 06/22/2022 Appointment Radiology Rusty Vee M.D. [address] [place] [phone] 06/23/2022 Clinical Communication Admitting/Central Scheduling 06/28/2022 Appointment Pulmonary Medicine Rusty Vee M.D. [address] [place] [phone] 06/28/2022 Appointment Pulmonary Medicine Rusty Vee M.D. [address] [place] [phone] documented as of this encounter Visit Diagnoses Not on filedocumented in this encounter
--- OUTSIDE RECORDS SUMMARY | 2022-05-25 21:19 | XMS_ITS | Encounter Summary ---
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 - 02/14/2008 8:15 AM CDT [id number] Hue Bellamy Carol [address] [place] [address] February 14, 2008 Dear Ms. Hue Bellamy Carol: Your Lab today was: INR 1.86 02/14/08 Your target range for your condition is: 2 - 3 You should: CONTINUE YOUR CURRENT DOSE Your Coumadin Tablet Strength should be: 5 mg Daily Dose: SUN:2.5mg MON:2.5mg TUE:2.5mg WED:2.5mg THUR:2.5mg FRI:2.5mg SAT:2.5mg Number of Pills to take each day: SUN:06/27 MON:06/27 TUE:06/27 WED:06/27 THUR:06/27 FRI:06/27 SAT:06/27 Your next lab appointment is scheduled for: 02/21/2008 [facility] labs must be drawn before 3 PM. [facility] labs must be drawn before 12 NOON. If you have questions regarding any of the above information or feel the information is not accurateplease call [phone] or ext. [phone]. Thank you, Eliana Farooq RN [facility] Clinic staff: Eliana Farooq RN; Antonia Mcclellan RN; Radha Candelaria RN; Fina Peres RN; Ermelinda Casas, ANGELINE; Mima Campo, ANGELINE Source: [facility] RWMCHXTRANSXRTFSYS Document Id: [id number] Electronically signed by Lay [facility] Humane Agent [id number] at 11/27/2016 10:57 PM CDT documented in this encounter Plan of Treatment Upcoming Encounters Date Type Specialty Care Team Description 06/22/2022 Appointment Laboratory Medicine Rusty Vee M.D. [address] [place] [phone] 06/22/2022 Diagnostic Pulmonary Medicine Rusty Vee M.D. [address] [place] [phone] 06/22/2022 Diagnostic Pulmonary Medicine Rusty Vee M.D. [address] [place] [phone] 06/22/2022 Appointment Radiology Rusty Vee M.D. [address] [place] [phone] 06/23/2022 Clinical Communication Admitting/Central Scheduling 06/28/2022 Appointment Pulmonary Medicine Rusty Vee M.D. [address] [place] [phone] 06/28/2022 Appointment Pulmonary Medicine Rusty Vee M.D. [address] [place] [phone] documented as of this encounter Visit Diagnoses Not on filedocumented in this encounter
--- OUTSIDE RECORDS SUMMARY | 2022-05-25 21:19 | XMS_ITS | Encounter Summary ---
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 200 [place] [phone] 06/22/2022 Diagnostic Pulmonary Medicine Rusty Vee M.D. 200 [place] [phone] 06/22/2022 Diagnostic Pulmonary Medicine Rusty Vee M.D. [address] [place] [phone] 06/22/2022 Appointment Radiology Rusty Vee M.D. [address] [place] [phone] 06/23/2022 Clinical Communication Admitting/Central Scheduling 06/28/2022 Appointment Pulmonary Medicine Rusty Vee M.D. [address] [place] [phone] 06/28/2022 Appointment Pulmonary Medicine Rusty Vee M.D. [address] [place] [phone] documented as of this encounter Visit Diagnoses Not on filedocumented in this encounter
--- OUTSIDE RECORDS SUMMARY | 2022-05-25 21:19 | XMS_ITS | Encounter Summary ---
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 200 [place] [phone] 06/22/2022 Diagnostic Pulmonary Medicine Rusty Vee M.D. [address] [place] [phone] 06/22/2022 Diagnostic Pulmonary Medicine Rusty Vee M.D. [address] [place] [phone] 06/22/2022 Appointment Radiology Rusty Vee M.D. [address] [place] [phone] 06/23/2022 Clinical Communication Admitting/Central Scheduling 06/28/2022 Appointment Pulmonary Medicine Rusty Vee M.D. [address] [place] [phone] 06/28/2022 Appointment Pulmonary Medicine Rusty Vee M.D. [address] [place] [phone] documented as of this encounter Visit Diagnoses Not on filedocumented in this encounter
--- OUTSIDE RECORDS SUMMARY | 2022-05-25 21:19 | XMS_ITS | Encounter Summary ---
:1975 Author Organization [facility] Address [address] [place] [address] Care Team Providers Name Role Phone Unavailable Primary Care Provider Unavailable Encounter Details Date Type Department Care Team Description 05/20/2008 Hospital Encounter HX [facility] XRAY Provider, Magdalenoi bro Social History Tobacco Use Types Packs/Day [...] Date Recorded Female 05/03/2022 7:07 PM LAUNDRY AGENT documented as of this encounter Progress Notes Emily Kim M.D. - 05/20/2008 3:30 PM CST [id number] Addended by: EMILY KIM on: 05/22/2008 11:18:04 AM Modules accepted: Orders Source: [facility] Document Id: [id number] Electronically signed by Lay, [facility] Operator [employer] [id number] at 11/28/2016 1:34 AM CDT documented in this encounter Miscellaneous Notes Miscellaneous - Emily Kim M.D. - 05/20/2008 3:30 PM CST [id number] Hue Bellamy Carol [address] [place] [address] May 22, 2008 Dear Hue: I am [...] or problems, please contact our office at [phone]. Sincerely, Emily Kim MD, HAIR DRYER Department [facility] Source: [facility] Document Id: [id number] Electronically signed by Lay [facility] Operator [employer] [id number] at 11/28/2016 1:34 AM CDT documented in this encounter Plan of Treatment Upcoming Encounters Date Type Specialty Care Team Description 06/22/2022 Appointment Laboratory Medicine Rusty Vee M.D. 200 [place] [phone] 06/22/2022 Diagnostic Pulmonary Medicine Rusty Vee M.D. [address] [place] [phone] 06/22/2022 Diagnostic Pulmonary Medicine Rusty Vee M.D. [address] [place] [phone] 06/22/2022 Appointment Radiology Rusty Vee M.D. [address] [place] [phone] 06/23/2022 Clinical Communication Admitting/Central Scheduling 06/28/2022 Appointment Pulmonary Medicine Rusty Vee M.D. [address] [place] [address] 06/28/2022 Appointment Pulmonary Medicine Rusty Vee M.D. [address] [place] [address] documented as of this encounter Visit Diagnoses Not on filedocumented in this encounter
--- OUTSIDE RECORDS SUMMARY | 2022-05-25 21:19 | XMS_ITS | Encounter Summary ---
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 - 02/08/2008 8:15 AM CDT [id number] Hue Bellamy Carol [address] [place] [address] February 08, 2008 Dear Ms. Hue Bellamy Carol: Your Lab today was: INR 4.84 02/08/08 Your target range for your condition is: 2 - 3 You should: HOLD Coumadin until INR Calls you after INR Blood draw on 02/11/2008 Your next lab appointment is scheduled for: 02/11/2008 [facility] and [facility] labs must be drawn before 3 PM. [facility] and [facility] labs must be drawn before 12 NOON. If you have questions regarding any of the above information or feel the information is not accurateplease call [phone] or ext. [phone]. Thank you, Eliana Farooq, RN [facility] INR Clinic staff: Eliana Farooq, ANGELINE; Antonia Mcclellan, ANGELINE; Radha Candelaria RN; Fina Peres, ANGELINE; Ermelinda Casas, RN; Mima Campo, ANGELINE Source: [facility] Document Id: [id number] Electronically signed by Lay [facility] Extract Wringer [id number] at 11/27/2016 10:57 PM CDT documented in this encounter Plan of Treatment Upcoming Encounters Date Type Specialty Care Team Description 06/22/2022 Appointment Laboratory Medicine Rusty Vee M.D. [address] [place] [phone] 06/22/2022 Diagnostic Pulmonary Medicine Rusty Vee M.D. [address] [place] [phone] 06/22/2022 Diagnostic Pulmonary Medicine Rusty Vee M.D. [address] [place] [phone] 06/22/2022 Appointment Radiology Rusty Vee M.D. [address] [place] [phone] 06/23/2022 Clinical Communication Admitting/Central Scheduling 06/28/2022 Appointment Pulmonary Medicine Rusty Vee M.D. [address] [place] [phone] 06/28/2022 Appointment Pulmonary Medicine Rusty Vee M.D. [address] [place] [phone] documented as of this encounter Visit Diagnoses Not on filedocumented in this encounter
--- OUTSIDE RECORDS SUMMARY | 2022-05-25 21:19 | XMS_ITS | Encounter Summary ---
:1975 Author Organization [facility] Address [address] [place] [address] Care Team Providers Name Role Phone Unavailable Primary Care Provider Unavailable Encounter Details Date Type Department Care Team Description 05/20/2008 Hospital Encounter HX NO MAPPING Luis Fernando Kim M.D. 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 [address] [place] [address] 06/22/2022 Diagnostic Pulmonary Medicine Rusty Vee M.D. [address] [place] [phone] 06/22/2022 Diagnostic Pulmonary Medicine Rusty Vee M.D. [address] [place] [phone] 06/22/2022 Appointment Radiology Rusty eVe M.D. [address] [place] [phone] 06/23/2022 Clinical Communication Admitting/Central Scheduling 06/28/2022 Appointment Pulmonary Medicine Rusty Vee M.D. [address] [place] [phone] 06/28/2022 Appointment Pulmonary Medicine Rusty Vee M.D. [address] [place] [phone] documented as of this encounter Visit Diagnoses Not on filedocumented in this encounter
--- OUTSIDE RECORDS SUMMARY | 2022-05-25 21:20 | XMS_ITS | Encounter Summary ---
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 200 [place] [phone] 06/22/2022 Diagnostic Pulmonary Medicine Rusty Vee M.D. 200 [place] [phone] 06/22/2022 Diagnostic Pulmonary Medicine Rusty Vee M.D. [address] [place] [phone] 06/22/2022 Appointment Radiology Rusty Vee M.D. [address] [place] [phone] 06/23/2022 Clinical Communication Admitting/Central Scheduling 06/28/2022 Appointment Pulmonary Medicine Rusty Vee M.D. [address] [place] [phone] 06/28/2022 Appointment Pulmonary Medicine Rusty Vee M.D. [address] [place] [phone] documented as of this encounter Visit Diagnoses Not on filedocumented in this encounter
--- OUTSIDE RECORDS SUMMARY | 2022-05-25 21:20 | XMS_ITS | Encounter Summary ---
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 - 06/08/2007 9:25 PM CST [id number] [facility] [address] [facility], [address] Name: Hue Medina Birthdate: 1975 SSN: [id number] [facility] Admission Date: 06/08 Allergy: Quinolones, [...] clinic OTHER ORDERS/COMMENTS (to be ordered in Epic by discharging physician): None: DIAGNOSIS: SUPERFICIAL PHLEBITIS-LEG [...] will go to her parents home in [place] since she has Downs (although highly functional). Will need to come back to on mon/ for INR clinic initial appt and to see if they can set up INR checks thru [facility] lab. PROCEDURE(S) PERFORMED: IMPRESSION: 1. Positive for superficial greater saphenous thrombus along medial right calf, knee to ankle. 2. Positive for deep vein thrombus in posterior calf, peroneal vein. 3. No evidence for deep vein thrombus from common femoral to popliteal vein. Dr. Morteza Shaver 06/09/2007 Source: [facility] Document Id: [id number] Miscellaneous - Suzanne Rich - 06/08/2007 9:25 PM CST [id number] [facility] [address] [facility], [address] Name: Hue Medina Birthdate: 1975 SSN: [id number] [facility] Allergy: Quinolones, Bees and Chloramphenicol Discharge Date: [...] Time last given: 0 .Discharge Pain Score: 1/10 . Time the discharge pain score was documented 1200. AM Nursing Instructions: Patient Education: Lovenox Diet: regular (No NSAIDS or Aspirin) Appointment(s): To see Dr. Garibay at [facility] on Monday, June 15 at 9:10 a.m. INR appointment at [facility] on Monday or Monday for education and repeat INR and Platelets.([phone]) I have all of my belongings . I understand my discharge instructions. My medications were reviewed with me and my parent(s). Patient's Signature: Nurse Discharging this patient signature: RN Signature & Date: Date: 06/09/2007 Please see paper chart for additional discharge documentation info: (time, how & by). Source: [facility] Document Id: [id number] Electronically signed by Conversion, [facility] Director Furniture [id number] at 11/28/2016 6:03 AM CDT documented in this encounter Plan of Treatment Upcoming Encounters Date Type Specialty Care Team Description 06/22/2022 Appointment Laboratory Medicine Rusty Vee M.D. [address] [place] [phone] 06/22/2022 Diagnostic Pulmonary Medicine Rusty Vee M.D. [address] [place] [phone] 06/22/2022 Diagnostic Pulmonary Medicine Rusty Vee M.D. [address] [place] [phone] 06/22/2022 Appointment Radiology Rusty Vee M.D. [address] [place] [phone] 06/23/2022 Clinical Communication Admitting/Central Scheduling 06/28/2022 Appointment Pulmonary Medicine Rusty Vee M.D. [address] [place] [phone] 06/28/2022 Appointment Pulmonary Medicine Rusty Vee M.D. [address] [place] [phone] documented as of this encounter Visit Diagnoses Not on filedocumented in this encounter
--- OUTSIDE RECORDS SUMMARY | 2022-05-25 21:20 | XMS_ITS | Encounter Summary ---
:1975 Author Organization [facility] Address [address] [place] [address] Care Team Providers Name Role Phone Unavailable Primary Care Provider Unavailable Encounter Details Date Type Department Care Team Description 06/08/2007 Hospital Encounter HX NO MAPPING Morteza Shaver M.D. [address] [place], [place] [phone] (Wo rk) Social History [...] for the very basics like Not v estpehanie hard 05/04/2022 food, housing, medical care, and [...] at Date Recorded Female 05/03/2022 7:07 PM TITLE AGENT documented as of this encounter Progress Notes Conversion, Historical Provider Ser - 06/08/2007 7:15 PM CST [id number] SUBJECTIVE: Hue is a 32-year-old Down syndrome [...] with her parents transiently. They live in [place]. Morteza Shaver M.D. Chapo Source: [facility] RWHXTRANSXRTFSYS Document Id: [id number] documented in this encounter Plan of Treatment Upcoming Encounters Date Type Specialty Care Team Description 06/22/2022 Appointment Laboratory Medicine Rusty Vee M.D. [address] [place] [phone] 06/22/2022 Diagnostic Pulmonary Medicine Rusty Vee M.D. [address] [place] [phone] 06/22/2022 Diagnostic Pulmonary Medicine Rusty Vee M.D. [address] [phone] 06/22/2022 Appointment Radiology Rusty Vee M.D. [address] [place] [phone] 06/23/2022 Clinical Communication Admitting/Central Scheduling 06/28/2022 Appointment Pulmonary Medicine Rusty Vee M.D. [address] [phone] 06/28/2022 Appointment Pulmonary Medicine Rusty Vee M.D. [address] [place] [phone] documented as of this encounter Visit Diagnoses Not on filedocumented in this encounter
--- OUTSIDE RECORDS SUMMARY | 2022-05-25 21:20 | XMS_ITS | Encounter Summary ---
:1975 Author Organization [facility] Address [address] [place] [address] Care Team Providers Name Role Phone Unavailable Primary Care Provider Unavailable Encounter Details Date Type Department Care Team Description 06/15/2007 Hospital Encounter HX [facility] Marsha Garibay M.D. 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 - 06/15/2007 10:50 AM CST [id number] CLINIC ENCOUNTER Patient presents today for follow [...] stopped. She may return to work after [place]. She is staying with her parents. Did review her labs, which were negative except for a slightly low free protein S and lab recommended this be repeated after she has been off the Coumadin for a month. Otherwise she will follow up in 6 months. Gabby Pérez/yarelis cc: Source: [facility] RWHXTRANSXSYS Document Id: [id number] Sridhar Barker M.D. - 06/15/2007 10:50 AM CST [id number] This office note has been dictated. More than 25 minutes was spent with the patient- more than half of which was spent in face to face consultation regarding dvt diagnosis and treatment. Source: [facility] RWHXTRANSXRTFSYS Document Id: [id number] documented in this encounter Plan of Treatment Upcoming Encounters Date Type Specialty Care Team Description 06/22/2022 Appointment Laboratory Medicine Rusty Vee M.D. [address] [place] [phone] 06/22/2022 Diagnostic Pulmonary Medicine Rusty Vee M.D. [address] [place] [phone] 06/22/2022 Diagnostic Pulmonary Medicine Rusty Vee M.D. [address] [place] [phone] 06/22/2022 Appointment Radiology Rusty Vee M.D. [address] [place] [phone] 06/23/2022 Clinical Communication Admitting/Central Scheduling 06/28/2022 Appointment Pulmonary Medicine Rusty Vee M.D. [address] [place] [phone] 06/28/2022 Appointment Pulmonary Medicine Rusty Vee M.D. [address] [place] [phone] documented as of this encounter Visit Diagnoses Not on filedocumented in this encounter
--- OUTSIDE RECORDS SUMMARY | 2022-05-25 21:20 | XMS_ITS | Encounter Summary ---
:1975 Author Organization 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 200 [place] [phone] 06/22/2022 Diagnostic Pulmonary Medicine Rusty Vee M.D. 200 [place] [phone] 06/22/2022 Diagnostic Pulmonary Medicine Rusty Vee M.D. [address] [place] [phone] 06/22/2022 Appointment Radiology Rusty Vee M.D. [address] [place] [phone] 06/23/2022 Clinical Communication Admitting/Central Scheduling 06/28/2022 Appointment Pulmonary Medicine Rusty Vee M.D. [address] [place] [phone] 06/28/2022 Appointment Pulmonary Medicine Rusty Vee M.D. [address] [place] [phone] documented as of this encounter Visit Diagnoses Not on filedocumented in this encounter
--- OUTSIDE RECORDS SUMMARY | 2022-05-25 21:20 | XMS_ITS | Encounter Summary ---
:1975 Author Organization [facility] Address [address] [place] [address] Care Team Providers Name Role Phone Unavailable Primary Care Provider Unavailable Encounter Details Date Type Department Care Team Description 08/31/2007 Hospital En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 - 08/31/2007 8:45 AM CST [id number] Hue Bellamy Carol [address] [place] [address] August 31, 2007 Dear Ms. Hue Bellamy Carol: Your Lab today was: INR 2.29 08/31/2007 Your target range for your condition is: 2 - 3 You should: CONTINUE YOUR CURRENT DOSE Your Coumadin Tablet Strength should be: 5 mg Daily Dose: SUN:2.5mg MON:2.5mg TUE:2.5mg WED:2.5mg THUR:2.5mg FRI:5mg SAT:2.5mg Number of Pills to take each day: SUN:06/27 MON:06/27 TUE:2 WED:06/27 THUR:06/27 FRI:1 SAT:2 Your next lab appointment is scheduled for: 09/21/07. [facility] and [facility] labs must be drawn before 3 PM. [facility] and [facility] labs must be drawn before 12 NOON. If you have questions regarding any of the above information or feel the information is not accurateplease call [phone] or [phone]. [phone]. Thank you, Ermelinda Casas [facility] staff: Eliana Farooq, ANGELINE; Antonia Mcclellan, RN; Radha Candelaria RN; Fina Peres RN; Ermelinda Casas RN Source: [facility] Document Id: [id number] Electronically signed by Lay, [facility] Field Marketing Specialist [id number] at 11/28/2016 2:12 AM CDT documented in this encounter Plan of Treatment Upcoming Encounters Date Type Specialty Care Team Description 06/22/2022 Appointment Laboratory Medicine Rusty Vee M.D. 200 [place] [phone] 06/22/2022 Diagnostic Pulmonary Medicine Rusty Vee M.D. [address] [place] [phone] 06/22/2022 Diagnostic Pulmonary Medicine Rusty Vee M.D. [address] [place] [phone] 06/22/2022 Appointment Radiology Rusty Vee M.D. [address] [place] [phone] 06/23/2022 Clinical Communication Admitting/Central Scheduling 06/28/2022 Appointment Pulmonary Medicine Rusty Vee M.D. [address] [place] [phone] 06/28/2022 Appointment Pulmonary Medicine Rusty Vee M.D. [address] [place] [phone] documented as of this encounter Visit Diagnoses Not on filedocumented in this encounter
--- OUTSIDE RECORDS SUMMARY | 2022-05-25 21:20 | XMS_ITS | Encounter Summary ---
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 200 [place] [phone] 06/22/2022 Diagnostic Pulmonary Medicine Rusty Vee M.D. 200 [place] [phone] 06/22/2022 Diagnostic Pulmonary Medicine Rusty Vee M.D. [address] [place] [phone] 06/22/2022 Appointment Radiology Rusty Vee M.D. [address] [place] [phone] 06/23/2022 Clinical Communication Admitting/Central Scheduling 06/28/2022 Appointment Pulmonary Medicine Rusty Vee M.D. [address] [place] [phone] 06/28/2022 Appointment Pulmonary Medicine Rusty Vee M.D. [address] [place] [phone] documented as of this encounter Visit Diagnoses Not on filedocumented in this encounter
--- OUTSIDE RECORDS SUMMARY | 2022-05-25 21:20 | XMS_ITS | Encounter Summary ---
:[address] 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 200 [place] [phone] 06/22/2022 Diagnostic Pulmonary Medicine Rusty Vee M.D. 200 [place] [phone] 06/22/2022 Diagnostic Pulmonary Medicine Rusty Vee M.D. [address] [place] [phone] 06/22/2022 Appointment Radiology Rusty Vee M.D. [address] [place] [phone] 06/23/2022 Clinical Communication Admitting/Central Scheduling 06/28/2022 Appointment Pulmonary Medicine Rusty Vee M.D. [address] [place] [phone] 06/28/2022 Appointment Pulmonary Medicine Rusty Vee M.D. [address] [place] [phone] documented as of this encounter Visit Diagnoses Not on filedocumented in this encounter
--- OUTSIDE RECORDS SUMMARY | 2022-05-25 21:20 | XMS_ITS | Encounter Summary ---
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 200 [place] [phone] 06/22/2022 Diagnostic Pulmonary Medicine Rusty Vee M.D. 200 [place] [phone] 06/22/2022 Diagnostic Pulmonary Medicine Rusty Vee M.D. [address] [place] [phone] 06/22/2022 Appointment Radiology Rusty Vee M.D. [address] [place] [phone] 06/23/2022 Clinical Communication Admitting/Central Scheduling 06/28/2022 Appointment Pulmonary Medicine Rusty Vee M.D. [address] [place] [phone] 06/28/2022 Appointment Pulmonary Medicine Rusty Vee M.D. [address] [place] [phone] documented as of this encounter Visit Diagnoses Not on filedocumented in this encounter
--- OUTSIDE RECORDS SUMMARY | 2022-05-25 21:20 | XMS_ITS | Encounter Summary ---
:1975 Author Organization [facility] Address [address] [place] [address] Care Team Providers Name Role Phone Unavailable Primary Care Provider Unavailable Encounter Details Date Type Department Care Team Description 06/11/2007 Hospital Encounter HX [facility] Morteza Shaver M.D. 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 - 06/11/2007 12:00 AM CST [id number] Pt seen dr Shaver on 06-08 and he ordered a total protein S. Usually they run a free protein S. Wonderif you would like to change to that. We need to call the lab at the [facility] with response. # is [phone]. Can dr Garibay review in dr Sampson absence? Source[facility] Document Id: [id number] Electronically signed by Conversion, [facility] Hearing Aid Specialist [id number] at 11/28/2016 6:03 AM CDT Telephone Encounter - Sridhar Garibay M.D. - 06/11/2007 12:00 AM SUPERVISOR PROPERTIES [id number] Ok to do a free protein S- please let them know. Source: [facility] Document Id: [id number] Electronically signed by Conversion, [facility] Hearing Aid Specialist [id number] at 11/28/2016 6:03 AM CDT Telephone Encounter - Ellis Salvador L.P.N. - 06/11/2007 12:00 AM SUPERVISOR PROPERTIES [id number] What needs to be done with this. I don't see any open or future orders at all. Source: [facility] Document Id: [id number] Electronically signed by Conversion, [facility] Hearing Aid Specialist [id number] at 11/28/2016 6:03 AM CDT Telephone Encounter - Conversion, Historical Provider Ser - 06/11/2007 12:00 AM CST [id number] II called the number and gave the ok to change the lab test. Source: [facility] Document Id: [id number] documented in this encounter Plan of Treatment Upcoming Encounters Date Type Specialty Care Team Description 06/22/2022 Appointment Laboratory Medicine Rusty Vee M.D. 200 [place] [phone] 06/22/2022 Diagnostic Pulmonary Medicine Rusty Vee M.D. [address] [place] [phone] 06/22/2022 Diagnostic Pulmonary Medicine Rusty Vee M.D. [address] [place] [phone] 06/22/2022 Appointment Radiology Rusty Vee M.D. [address] [place] [phone] 06/23/2022 Clinical Communication Admitting/Central Scheduling 06/28/2022 Appointment Pulmonary Medicine Rusty Vee M.D. [address] [place] [phone] 06/28/2022 Appointment Pulmonary Medicine Rusty Vee M.D. [address] [place] [phone] documented as of this encounter Visit Diagnoses Not on filedocumented in this encounter
--- OUTSIDE RECORDS SUMMARY | 2022-05-25 21:20 | XMS_ITS | Encounter Summary ---
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 200 [place] [phone] 06/22/2022 Diagnostic Pulmonary Medicine Rusty Vee M.D. 200 [place] [phone] 06/22/2022 Diagnostic Pulmonary Medicine Rusty Vee M.D. [address] [place] [phone] 06/22/2022 Appointment Radiology Rusty Vee M.D. [address] [place] [phone] 06/23/2022 Clinical Communication Admitting/Central Scheduling 06/28/2022 Appointment Pulmonary Medicine Rusty Vee M.D. [address] [place] [phone] 06/28/2022 Appointment Pulmonary Medicine Rusty Vee M.D. [address] [place] [phone] documented as of this encounter Visit Diagnoses Not on filedocumented in this encounter
--- OUTSIDE RECORDS SUMMARY | 2022-05-25 21:20 | XMS_ITS | Encounter Summary ---
:1975 Author Organization [facility] Address [address] [place] [address] Care Team Providers Name Role Phone Unavailable Primary Care Provider Unavailable Encounter Details Date Type Department Care Team Description 06/11/2007 Hospital Encounter [facility]X [facility] [...] Appointment Laboratory Medicine Rusty Vee M.D. 200 [place] [phone] 06/22/2022 Diagnostic Pulmonary Medicine Rusty Vee M.D. 200 [place] [phone] 06/22/2022 Diagnostic Pulmonary Medicine Rusty Vee M.D. [address] [place] [phone] 06/22/2022 Appointment Radiology Rusty Vee M.D. [address] [place] [phone] 06/23/2022 Clinical Communication Admitting/Central Scheduling 06/28/2022 Appointment Pulmonary Medicine Rusty Vee M.D. [address] [place] [phone] 06/28/2022 Appointment Pulmonary Medicine Rusty Vee M.D. [address] [place] [phone] documented as of this encounter Visit Diagnoses Not on filedocumented in this encounter
--- OUTSIDE RECORDS SUMMARY | 2022-05-25 21:20 | XMS_ITS | Encounter Summary ---
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 200 [place] [phone] 06/22/2022 Diagnostic Pulmonary Medicine Rusty Vee M.D. 200 [place] [phone] 06/22/2022 Diagnostic Pulmonary Medicine Rusty Vee M.D. [address] [place] [phone] 06/22/2022 Appointment Radiology Rusty Vee M.D. [address] [place] [phone] 06/23/2022 Clinical Communication Admitting/Central Scheduling 06/28/2022 Appointment Pulmonary Medicine Rusty Vee M.D. [address] [place] [phone] 06/28/2022 Appointment Pulmonary Medicine Rusty Vee M.D. [address] [place] [phone] documented as of this encounter Visit Diagnoses Not on filedocumented in this encounter
--- OUTSIDE RECORDS SUMMARY | 2022-05-25 21:20 | XMS_ITS | Encounter Summary ---
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 Patient received: FLUZONE INJECTION Patient Questionaire: I have a fever or feel ill today? No I have an allergy to eggs, gelatin or thimerosal? No I have had a reaction to the flu vaccine the past? No I have had Guillain-Koyuk syndrome? No VIS information given Source: [facility] Document Id: [id number] documented in this encounter Plan of Treatment Upcoming Encounters Date Type Specialty Care Team Description 06/22/2022 Appointment Laboratory Medicine Rusty Vee M.D. [address] [place] [phone] 06/22/2022 Diagnostic Pulmonary Medicine Rusty Vee M.D. [address] [place] [phone] 06/22/2022 Diagnostic Pulmonary Medicine Rusty Vee M.D. [address] [place] [address] [phone] 06/22/2022 Appointment Radiology Rusty Vee M.D. [address] [place] [address] [phone] 06/23/2022 Clinical Communication Admitting/Central Scheduling 06/28/2022 Appointment Pulmonary Medicine Rusty Vee M.D. [address] [place] [phone] 06/28/2022 Appointment Pulmonary Medicine Rusty Vee M.D. [address] [place] [address] [phone] documented as of this encounter Visit Diagnoses Not on filedocumented in this encounter
--- OUTSIDE RECORDS SUMMARY | 2022-05-25 21:20 | XMS_ITS | Encounter Summary ---
:1975 Author Organization [facility] Address [address] [place] [address] Care Team Providers Name Role Phone Unavailable Primary Care Provider Unavailable Encounter Details Date Type Department Care Team Description 06/11/2007 Hospital Encounter [facility] Antonia Jenkins R.N. 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 - 06/11/2007 12:00 AM CST [id number] June 11, 2007 Dear Colleague, Our patient, Hue Medina, 1975 is currently on Warfarin (Coumadin) therapy for Superficial Phlebitis(451.0). INR monitoring is required to continue the consistent management of our patient. Please draw an INR on a PRN basis and fax the results to: [facility] [place] [address] Thank You for your cooperation. Sincerely, Cotton MD Julie Motz, RN Source: [facility] Document Id: [id number] Electronically signed by Conversion, [facility] College Professor [id number] at 11/28/2016 6:03 AM CDT documented in this encounter Plan of Treatment Upcoming Encounters Date Type Specialty Care Team Description 06/22/2022 Appointment Laboratory Medicine Rusty Vee M.D. [address] [place] [phone] 06/22/2022 Diagnostic Pulmonary Medicine Rusty Vee M.D. [address] [place] [phone] 06/22/2022 Diagnostic Pulmonary Medicine Rusty Vee M.D. [address] [place] [phone] 06/22/2022 Appointment Radiology Rusty Vee M.D. [address] [place] [phone] 06/23/2022 Clinical Communication Admitting/Central Scheduling 06/28/2022 Appointment Pulmonary Medicine Rusty Vee M.D. [address] [place] [phone] 06/28/2022 Appointment Pulmonary Medicine Rusty Vee M.D. [address] [place] [phone] documented as of this encounter Visit Diagnoses Not on filedocumented in this encounter
--- OUTSIDE RECORDS SUMMARY | 2022-05-25 21:20 | XMS_ITS | Encounter Summary ---
:1975 Author Organization [facility] Address [address] [place] [address] Care Team Providers Name Role Phone Unavailable Primary Care Provider Unavailable Encounter Details Date Type Department Care Team Description 11/26/[address] [facility] Marsha Garibay M.D. 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 - 11/26/2007 3:10 PM CDT [id number] CLINIC ENCOUNTER Patient presents today for followup [...] Followup then as needed. Sridhar Garibay M.D. [facility] cc: Source: [facility] Document Id: [id number] Electronically signed by Conversion, [facility] Configuration Specialist [id number] at 11/28/2016 3:36 AM CDT Sridhar Garibay M.D. - 11/26/2007 3:10 PM CDT [id number] This office note has been dictated. More than 25 minutes was spent with the patient- more than half of which was spent in face to face consultation regarding the above diagnosis and treatment. Source: [facility] Document Id: [id number] Electronically signed by Conversion, [facility] Configuration Specialist [id number] at 11/28/2016 3:36 AM CDT documented in this encounter Plan of Treatment Upcoming Encounters Date Type Specialty Care Team Description 06/22/2022 Appointment Laboratory Medicine Rusty Vee M.D. [address] [place] [address] [phone] 06/22/2022 Diagnostic Pulmonary Medicine Rusty Vee M.D. [address] [place] [phone] 06/22/2022 Diagnostic Pulmonary Medicine Rusty Vee M.D. [address] [place] [address] [phone] 06/22/2022 Appointment Radiology Rusty Vee M.D. [address] [place] [phone] 06/23/2022 Clinical Communication Admitting/Central Scheduling 06/28/2022 Appointment Pulmonary Medicine Rusty Vee M.D. [address] [place] [phone] 06/28/2022 Appointment Pulmonary Medicine Rusty Vee M.D. [address] [place] [phone] documented as of this encounter Visit Diagnoses Not on filedocumented in this encounter
--- OUTSIDE RECORDS SUMMARY | 2022-05-25 21:20 | XMS_ITS | Encounter Summary ---
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 200 [place] [phone] 06/22/2022 Diagnostic Pulmonary Medicine Rusty Vee M.D. 200 [place] [phone] 06/22/2022 Diagnostic Pulmonary Medicine Rusty Vee M.D. [address] [place] [phone] 06/22/2022 Appointment Radiology Rusty Vee M.D. [address] [place] [phone] 06/23/2022 Clinical Communication Admitting/Central Scheduling 06/28/2022 Appointment Pulmonary Medicine Rusty Vee M.D. [address] [place] [phone] 06/28/2022 Appointment Pulmonary Medicine Rusty Vee M.D. [address] [place] [phone] documented as of this encounter Visit Diagnoses Not on filedocumented in this encounter
--- OUTSIDE RECORDS SUMMARY | 2022-05-25 21:20 | XMS_ITS | Encounter Summary ---
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 200 [place] [phone] 06/22/2022 Diagnostic Pulmonary Medicine Rusty Vee M.D. 200 [place] [phone] 06/22/2022 Diagnostic Pulmonary Medicine Rusty Vee M.D. [address] [place] [phone] 06/22/2022 Appointment Radiology Rusty Vee M.D. [address] [place] [phone] 06/23/2022 Clinical Communication Admitting/Central Scheduling 06/28/2022 Appointment Pulmonary Medicine Rusty Vee M.D. [address] [place] [phone] 06/28/2022 Appointment Pulmonary Medicine Rusty Vee M.D. [address] [place] [phone] documented as of this encounter Visit Diagnoses Not on filedocumented in this encounter
--- OUTSIDE RECORDS SUMMARY | 2022-05-25 21:20 | XMS_ITS | Encounter Summary ---
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 200 [place] [phone] 06/22/2022 Diagnostic Pulmonary Medicine Rusty Vee M.D. 200 [place] [phone] 06/22/2022 Diagnostic Pulmonary Medicine Rusty Vee M.D. [address] [place] [phone] 06/22/2022 Appointment Radiology Rusty Vee M.D. [address] [place] [phone] 06/23/2022 Clinical Communication Admitting/Central Scheduling 06/28/2022 Appointment Pulmonary Medicine Rusty Vee M.D. [address] [place] [phone] 06/28/2022 Appointment Pulmonary Medicine Rusty Vee M.D. [address] [place] [phone] documented as of this encounter Visit Diagnoses Not on filedocumented in this encounter
--- OUTSIDE RECORDS SUMMARY | 2022-05-25 21:20 | XMS_ITS | Encounter Summary ---
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 200 [place] [phone] 06/22/2022 Diagnostic Pulmonary Medicine Rusty Vee M.D. 200 [place] [phone] 06/22/2022 Diagnostic Pulmonary Medicine Rusty Vee M.D. [address] [place] [phone] 06/22/2022 Appointment Radiology Rusty Vee M.D. [address] [place] [phone] 06/23/2022 Clinical Communication Admitting/Central Scheduling 06/28/2022 Appointment Pulmonary Medicine Rusty Vee M.D. [address] [place] [phone] 06/28/2022 Appointment Pulmonary Medicine Rusty Vee M.D. [address] [place] [phone] documented as of this encounter Visit Diagnoses Not on filedocumented in this encounter
--- OUTSIDE RECORDS SUMMARY | 2022-05-25 21:20 | XMS_ITS | Encounter Summary ---
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 - 06/14/2007 1:40 PM CST [id number] Hue Bellamy Carol [address] [place] [address] June 14, 2007 Dear Ms. Hue Bellamy Carol: Your Lab today was: INR 3.25 on 06/14/2007 .Your target range for your condition is: 2 - 3 You should: CHANGE YOUR COUMADIN DOSE Your Coumadin Tablet Strength should be: 5 mg Daily Dose: 06/14/2007 THUR:0mg FRI:2.5mg SAT:2.5mg SUN:2.5mg MON: 0mg TUES:2.5mg and on Mon06/20/2007 Get INRdone Your next lab appointment is scheduled for: 06/20/2007 Either at or at [facility] labs must be drawn before 3 PM. [facility] and [facility] labs must be drawn before 12 NOON. If you have questions regarding any of the above information or feel the information is not accurateplease call [phone]. Thank you, Eliana Farooq RN [facility] staff: Eliana Farooq RN; Ritu Campbell RN; Antonia Mcclellan RN; Radha Candelaria RN; Fina Peres, ANGELINE; Ermelinda Casas, ANGELINE Source: [facility]XRT[facility] Document Id: [id number] Electronically signed by Lay [facility] Hospitalsylvia Acoustical Logging Engineer [id number] at 11/28/2016 6:03 AM CDT documented in this encounter Plan of Treatment Upcoming Encounters Date Type Specialty Care Team Description 06/22/2022 Appointment Laboratory Medicine Rusty Vee M.D. [address] [place] [address] [phone] 06/22/2022 Diagnostic Pulmonary Medicine Rusty Vee M.D. [address] [place] [phone] 06/22/2022 Diagnostic Pulmonary Medicine Rusty Vee M.D. [address] [place] [address] [phone] 06/22/2022 Appointment Radiology Rusty Vee M.D. [address] [place] [phone] 06/23/2022 Clinical Communication Admitting/Central Scheduling 06/28/2022 Appointment Pulmonary Medicine Rusty Vee M.D. [address] [place] [phone] 06/28/2022 Appointment Pulmonary Medicine Rusty Vee M.D. [address] [place] [phone] documented as of this encounter Visit Diagnoses Not on filedocumented in this encounter
--- OUTSIDE RECORDS SUMMARY | 2022-05-25 21:20 | XMS_ITS | Encounter Summary ---
:[address] 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 - 07/27/2007 8:00 AM CST [id number] Hue Mia Carol [address] [place] [address] July 27, 2007 Dear Ms. Hue Bellamy Carol: Your Lab today was: INR 2.44 07/27/2007 [...] appointment is scheduled for: 08/10/07 [facility]. [facility] and [facility] labs must be drawn before 3 PM. [facility] and [facility] labs must be drawn before 12 NOON. If you have questions regarding any of the above information or feel the information is not accurateplease call [phone] or [phone]. [phone]. Thank you, Ermelinda Casas [facility] Clinic staff: Eliana Farooq, ANGELINE; Antonia Mcclellan, ANGELINE; Radha Candelaria RN; Fina Peres, ANGELINE; Ermelinda Casas, RN Source: [facility] RWHXTRANSXRTFSYS Document Id: [id number] Electronically signed by Lay [facility] Supervisor Refining [id number] at 11/28/2016 1:02 AM CDT documented in this encounter Plan of Treatment Upcoming Encounters Date Type Specialty Care Team Description 06/22/2022 Appointment Laboratory Medicine Rusty Vee M.D. 200 [place] [phone] 06/22/2022 Diagnostic Pulmonary Medicine Rusty Vee M.D. [address] [place] [phone] 06/22/2022 Diagnostic Pulmonary Medicine Rusty Vee M.D. [address] [place] [phone] 06/22/2022 Appointment Radiology Rusty Vee M.D. [address] [place] [address] [phone] 06/23/2022 Clinical Communication Admitting/Central Scheduling 06/28/2022 Appointment Pulmonary Medicine Rusty Vee M.D. [address] [place] [phone] 06/28/2022 Appointment Pulmonary Medicine Rusty Vee M.D. [address] [place] [address] [phone] documented as of this encounter Visit Diagnoses Not on filedocumented in this encounter
--- OUTSIDE RECORDS SUMMARY | 2022-05-25 21:20 | XMS_ITS | Encounter Summary ---
:1975 Author Organization [facility] Address [address] [place] [address] Care Team Providers Name Role Phone Unavailable Primary Care Provider Unavailable Encounter Details Date Type Department Care Team Description 06/25/2007 Hospital Encounter [facility] Provider, [place] Social History Tobacco [...] at Date Recorded Female 05/03/2022 7:07 PM ACCT EXEC documented as of this encounter Plan of Treatment Upcoming Encounters Date Type Specialty Care Team Description 06/22/2022 Appointment Laboratory Medicine Rusty Vee M.D. 200 [place] [phone] 06/22/2022 Diagnostic Pulmonary Medicine Rusty Vee M.D. 200 [place] [phone] 06/22/2022 Diagnostic Pulmonary Medicine Rusty Vee M.D. [address] [place] [phone] 06/22/2022 Appointment Radiology Rusty Vee M.D. [address] [place] [phone] 06/23/2022 Clinical Communication Admitting/Central Scheduling 06/28/2022 Appointment Pulmonary Medicine Rusty Vee M.D. [address] [place] [phone] 06/28/2022 Appointment Pulmonary Medicine Rusty Vee M.D. [address] [place] [phone] documented as of this encounter Visit Diagnoses Not on filedocumented in this encounter
--- OUTSIDE RECORDS SUMMARY | 2022-05-25 21:20 | XMS_ITS | Encounter Summary ---
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 200 [place] [phone] 06/22/2022 Diagnostic Pulmonary Medicine Rusty Vee M.D. 200 [place] [phone] 06/22/2022 Diagnostic Pulmonary Medicine Rusty Vee M.D. [address] [place] [phone] 06/22/2022 Appointment Radiology Rusty Vee M.D. [address] [place] [phone] 06/23/2022 Clinical Communication Admitting/Central Scheduling 06/28/2022 Appointment Pulmonary Medicine Rusty Vee M.D. [address] [place] [phone] 06/28/2022 Appointment Pulmonary Medicine Rusty Vee M.D. [address] [place] [phone] documented as of this encounter Visit Diagnoses Not on filedocumented in this encounter
--- OUTSIDE RECORDS SUMMARY | 2022-05-25 21:20 | XMS_ITS | Encounter Summary ---
:1975 Author Organization [facility] Address [address] [place] [address] Care Team Providers Name Role Phone Unavailable Primary Care Provider Unavailable Encounter Details Date Type Department Care Team Description 06/08/2007 - Hospital Encounter HX NO MAPPING Morteza Shaver M.D. 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 [address] [place] [phone] 06/22/2022 Diagnostic Pulmonary Medicine Rusty Vee M.D. [address] [place] [phone] 06/22/2022 Diagnostic Pulmonary Medicine Rusty Vee M.D. [address] [place] [phone] 06/22/2022 Appointment Radiology Rusty Vee M.D. [address] [place] [phone] 06/23/2022 Clinical Communication Admitting/Central Scheduling 06/28/2022 Appointment Pulmonary Medicine Rusty Vee M.D. [address] [place] [phone] 06/28/2022 Appointment Pulmonary Medicine Rusty Vee M.D. [address] [place] [phone] documented as of this encounter Visit Diagnoses Not on filedocumented in this encounter
--- OUTSIDE RECORDS SUMMARY | 2022-05-25 21:20 | XMS_ITS | Encounter Summary ---
:1975 Author Organization [facility] Address [address] [place] [address] Care Team Providers Name Role Phone Unavailable Primary Care Provider Unavailable Encounter Details Date Type Department Care Team Description 08/17/[address] [facility] 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 200 [place] [phone] 06/22/2022 Diagnostic Pulmonary Medicine Rusty Vee M.D. 200 [place] [phone] 06/22/2022 Diagnostic Pulmonary Medicine Rusty Vee M.D. [address] [place] [phone] 06/22/2022 Appointment Radiology Rusty Vee M.D. [address] [place] [phone] 06/23/2022 Clinical Communication Admitting/Central Scheduling 06/28/2022 Appointment Pulmonary Medicine Rusty Vee M.D. [address] [place] [phone] 06/28/2022 Appointment Pulmonary Medicine Rusty Vee M.D. [address] [place] [phone] documented as of this encounter Visit Diagnoses Not on filedocumented in this encounter
--- OUTSIDE RECORDS SUMMARY | 2022-05-25 21:20 | XMS_ITS | Encounter Summary ---
:1975 Author Organization [facility] Address [address] [place] [address] Care Team Providers Name Role Phone Unavailable Primary Care Provider Unavailable Encounter Details Date Type Department Care Team Description 11/15/2007 Hospital Encounter [facility]X [facility] Marsha Garibay M.D. [address] [place], [place] [address] (Wo rk) Social History [...] at Date Recorded Female 05/03/2022 7:07 PM SHANK BREAKER documented as of this encounter Miscellaneous Notes Telephone Encounter - Conversion, Historical Provider Ser - 11/15/2007 12:00 AM CDT [id number] Accepting this Rx will FAX it directly to the pharmacy. Source: [facility] Document Id: [id number] documented in this encounter Plan of Treatment Upcoming Encounters Date Type Specialty Care Team Description 06/22/2022 Appointment Laboratory Medicine Rusty Vee M.D. [address] [place] [phone] 06/22/2022 Diagnostic Pulmonary Medicine Rusty Vee M.D. [address] [place] [phone] 06/22/2022 Diagnostic Pulmonary Medicine Rusty Vee M.D. [address] [place] [phone] 06/22/2022 Appointment Radiology Rusty Vee M.D. [address] [place] [phone] 06/23/2022 Clinical Communication Admitting/Central Scheduling 06/28/2022 Appointment Pulmonary Medicine Rusty Vee M.D. [address] [place] [phone] 06/28/2022 Appointment Pulmonary Medicine Rusty Vee M.D. [address] [place] [phone] documented as of this encounter Visit Diagnoses Not on filedocumented in this encounter
--- OUTSIDE RECORDS SUMMARY | 2022-05-25 21:20 | XMS_ITS | Encounter Summary ---
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 200 [place] [phone] 06/22/2022 Diagnostic Pulmonary Medicine Rutsy Vee M.D. 200 [place] [phone] 06/22/2022 Diagnostic Pulmonary Medicine Rusty Vee M.D. [address] [place] [phone] 06/22/2022 Appointment Radiology Rusty Vee M.D. [address] [place] [phone] 06/23/2022 Clinical Communication Admitting/Central Scheduling 06/28/2022 Appointment Pulmonary Medicine Rusty Vee M.D. [address] [place] [phone] 06/28/2022 Appointment Pulmonary Medicine Rusty Vee M.D. [address] [place] [phone] documented as of this encounter Visit Diagnoses Not on filedocumented in this encounter
--- OUTSIDE RECORDS SUMMARY | 2022-05-25 21:20 | XMS_ITS | Encounter Summary ---
:1975 Author Organization [facility] Address [address] [place] [address] Care Team Providers Name Role Phone Unavailable Primary Care Provider Unavailable Encounter Details Date Type Department Care Team Description 04/09/2007 Hospital Encounter HX [facility] Kalyn Stafford M.D. 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 - 04/09/2007 1:15 PM CDT [id number] Hue is a 32 year old here for her annual exam. 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 Refuses pelvic exam. 2. Dysmenorrhea-doing well on Mircette. Health maintenance includes: tetanus vaccine (DTAP). At some point, would rec: pap/pelvic under anesthesia. Last pap in 2002 and was normal. Source: [facility] RWMCHXTRANSXRTFSYS Document Id: [id number] Electronically signed by Lay [facility] Food Service Attendant [id number] at 11/28/2016 11:52 AM CDT documented in this encounter Plan of Treatment Upcoming Encounters Date Type Specialty Care Team Description 06/22/2022 Appointment Laboratory Medicine Rusty Vee M.D. [address] [place] [phone] 06/22/2022 Diagnostic Pulmonary Medicine Rusty Vee M.D. [address] [place] [phone] 06/22/2022 Diagnostic Pulmonary Medicine Rusty Vee M.D. [address] [place] [phone] 06/22/2022 Appointment Radiology Rusty Vee M.D. [address] [place] [phone] 06/23/2022 Clinical Communication Admitting/Central Scheduling 06/28/2022 Appointment Pulmonary Medicine Rusty Vee M.D. [address] [place] [phone] 06/28/2022 Appointment Pulmonary Medicine Rusty Vee M.D. [address] [place] [phone] documented as of this encounter Visit Diagnoses Not on filedocumented in this encounter
--- OUTSIDE RECORDS SUMMARY | 2022-05-25 21:21 | XMS_ITS | Encounter Summary ---
:1975 Author Organization [facility] Address [address] [place] [address] Care Team Providers Name Role Phone Unavailable Primary Care Provider Unavailable Encounter Details Date Type Department Care Team Description 10/06/2004 Hospital Encounter HX [facility] Prasad Mcduffie M.D. 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 Prasad Anaya M.D., ROSARIO/shabnam Source: [facility] Document Id: [id number] documented in this encounter Plan of Treatment Upcoming Encounters Date Type Specialty Care Team Description 06/22/2022 Appointment Laboratory Medicine Rusty Vee M.D. [address] [place] [phone] 06/22/2022 Diagnostic Pulmonary Medicine Rusty Vee M.D. [address] [place] [phone] 06/22/2022 Diagnostic Pulmonary Medicine Rusty Vee M.D. [address] [place] [phone] 06/22/2022 Appointment Radiology Rusty Vee M.D. [address] [place] [phone] 06/23/2022 Clinical Communication Admitting/Central Scheduling 06/28/2022 Appointment Pulmonary Medicine Rusty Vee M.D. [address] [place] [phone] 06/28/2022 Appointment Pulmonary Medicine Rusty Vee M.D. [address] [place] [phone] documented as of this encounter Visit Diagnoses Not on filedocumented in this encounter
--- OUTSIDE RECORDS SUMMARY | 2022-05-25 21:21 | XMS_ITS | Encounter Summary ---
:1975 Author Organization [facility] Address [address] [place] [address] Care Team Providers Name Role Phone Unavailable Primary Care Provider Unavailable Encounter Details Date Type Department Care Team Description 07/26/2004 Hospital Encounter [facility] Marsha Garibay M.D. 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 Anaya. Sridhar Garibay M.D./yarelis Source: [facility] RWHXTRANSXSYS Document Id: [id number] documented in this encounter Plan of Treatment Upcoming Encounters Date Type Specialty Care Team Description 06/22/2022 Appointment Laboratory Medicine Rusty Vee M.D. [address] [place] [phone] 06/22/2022 Diagnostic Pulmonary Medicine Rusty Vee M.D. [address] [place] [phone] 06/22/2022 Diagnostic Pulmonary Medicine Rusty Vee M.D. [address] [place] [phone] 06/22/2022 Appointment Radiology Rusty Vee M.D. [address] [place] [phone] 06/23/2022 Clinical Communication Admitting/Central Scheduling 06/28/2022 Appointment Pulmonary Medicine Rusty Vee M.D. [address] [place] [phone] 06/28/2022 Appointment Pulmonary Rusty Mattson M.D. [address] [place] [phone] documented as of this encounter Visit Diagnoses Not on filedocumented in this encounter
--- OUTSIDE RECORDS SUMMARY | 2022-05-25 21:21 | XMS_ITS | Encounter Summary ---
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 Source: [facility] RWHXTRANSXRTFSYS Document Id: [id number] documented in this encounter Plan of Treatment Upcoming Encounters Date Type Specialty Care Team Description 06/22/2022 Appointment Laboratory Medicine Rusty Vee M.D. [address] [place] [phone] 06/22/2022 Diagnostic Pulmonary Medicine Rusty Vee M.D. [address] [place] [phone] 06/22/2022 Diagnostic Pulmonary Medicine Rusty Vee M.D. [address] [place] [phone] 06/22/2022 Appointment Radiology Rusty Vee M.D. [address] [place] [phone] 06/23/2022 Clinical Communication Admitting/Central Scheduling 06/28/2022 Appointment Pulmonary Medicine Rusty Vee M.D. [address] [place] [phone] 06/28/2022 Appointment Pulmonary Medicine Rusty Vee M.D. [address] [place] [phone] documented as of this encounter Visit Diagnoses Not on filedocumented in this encounter
--- OUTSIDE RECORDS SUMMARY | 2022-05-25 21:21 | XMS_ITS | Encounter Summary ---
:1975 Author Organization [facility] Address [address] [place] [address] Care Team Providers Name Role Phone Unavailable Primary Care Provider Unavailable Encounter Details Date Type Department Care Team Description 09/07/[address] [facility] [facility] Prasad Mcduffie M.D. 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 Prasad Anaya M.D., [facility]/shabnam Source: [facility] RWHXTRANSXRTFSYS Document Id: [id number] Electronically signed by Lay, [facility] Electric Shaver Mechanic [id number] at 11/28/2016 10:22 PM CDT documented in this encounter Plan of Treatment Upcoming Encounters Date Type Specialty Care Team Description 06/22/2022 Appointment Laboratory Medicine Rusty Vee M.D. [address] [place] [phone] 06/22/2022 Diagnostic Pulmonary Medicine Rusty Vee M.D. [address] [place] [phone] 06/22/2022 Diagnostic Pulmonary Medicine Rusty Vee M.D. [address] [place] [phone] 06/22/2022 Appointment Radiology Rusty Vee M.D. [address] [place] [phone] 06/23/2022 Clinical Communication Admitting/Central Scheduling 06/28/2022 Appointment Pulmonary Medicine Rusty Vee M.D. [address] [place] [phone] 06/28/2022 Appointment Pulmonary Medicine Rusty Vee M.D. [address] [place] [phone] documented as of this encounter Visit Diagnoses Not on filedocumented in this encounter
--- OUTSIDE RECORDS SUMMARY | 2022-05-25 21:21 | XMS_ITS | Encounter Summary ---
:1975 Author Organization [facility] Address [address] [place] [address] Care Team Providers Name Role Phone Unavailable Primary Care Provider Unavailable Encounter Details Date Type Department Care Team Description 05/06/2005 Hospital 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 200 [place] [phone] 06/22/2022 Diagnostic Pulmonary Medicine Rusty Vee M.D. 200 [place] [phone] 06/22/2022 Diagnostic Pulmonary Medicine Rusty Vee M.D. [address] [place] [phone] 06/22/2022 Appointment Radiology Rusty Vee M.D. [address] [place] [phone] 06/23/2022 Clinical Communication Admitting/Central Scheduling 06/28/2022 Appointment Pulmonary Medicine Rusty Vee M.D. [address] [place] [phone] 06/28/2022 Appointment Pulmonary Medicine Rusty Vee M.D. [address] [place] [phone] documented as of this encounter Visit Diagnoses Not on filedocumented in this encounter
--- OUTSIDE RECORDS SUMMARY | 2022-05-25 21:21 | XMS_ITS | Encounter Summary ---
:1975 Author Organization [facility] Address [address] [place] [address] Care Team Providers Name Role Phone Unavailable Primary Care Provider Unavailable Encounter Details Date Type Department Care Team Description 12/18/2003 Hospital Encounter HX [facility] Amber Lopes, RMichaelN. 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 Contact: I called and left a message that an exam is needed before further refills, will you provide 3 months until she can get in? Source: [facility] RWHXTRANSXSYS Document Id: [id number] documented in this encounter Plan of Treatment Upcoming Encounters Date Type Specialty Care Team Description 06/22/2022 Appointment Laboratory Medicine Rusty Vee M.D. [address] [place] [phone] 06/22/2022 Diagnostic Pulmonary Medicine Rusty Vee M.D. [address] [place] [phone] 06/22/2022 Diagnostic Pulmonary Medicine Rusty Vee M.D. [address] [place] [phone] 06/22/2022 Appointment Radiology Rusty Vee M.D. [address] [place] [phone] 06/23/2022 Clinical Communication Admitting/Central Scheduling 06/28/2022 Appointment Pulmonary Medicine Rusty Vee M.D. [address] [place] [phone] 06/28/2022 Appointment Pulmonary Medicine uRsty Vee M.D. [address] [place] [phone] documented as of this encounter Visit Diagnoses Not on filedocumented in this encounter
--- OUTSIDE RECORDS SUMMARY | 2022-05-25 21:21 | XMS_ITS | Encounter Summary ---
:1975 Author Organization [facility] Address [address] [place] [address] Care Team Providers Name Role Phone Unavailable Primary Care Provider Unavailable Encounter Details Date Type Department Care Team Description 11/01/[address] [facility] SURGOsvaldo Crawford M.D. Social History Tobacco Use Types Packs/Day [...] at Date Recorded Female 05/03/2022 7:07 PM CONSULTANT documented as of this encounter Progress Notes Osvaldo Harris M.D. - 11/01/2005 2:45 PM CDT [id number] CLINIC ENCOUNTER Hue is in today for [...] chance of infection developing in this area. Gabby Degroot cc: [facility] RWHXTRANSXSYS Document Id: [id number] Electronically signed by Lay, [facility] Dealer Analyst [id number] at 11/28/2016 1:01 PM CDT documented in this encounter Plan of Treatment Upcoming Encounters Date Type Specialty Care Team Description 06/22/2022 Appointment Laboratory Medicine Rusty Vee M.D. [address] [place] [phone] 06/22/2022 Diagnostic Pulmonary Medicine Rusty Vee M.D. [address] [place] [phone] 06/22/2022 Diagnostic Pulmonary Medicine Rusty Vee M.D. [address] [place] [phone] 06/22/2022 Appointment Radiology Rusty Vee M.D. [address] [place] [phone] 06/23/2022 Clinical Communication Admitting/Central Scheduling 06/28/2022 Appointment Pulmonary Medicine Rusty Vee M.D. [address] [place] [phone] 06/28/2022 Appointment Pulmonary Medicine Rusty Vee M.D. [address] [place] [phone] documented as of this encounter Visit Diagnoses Not on filedocumented in this encounter
--- OUTSIDE RECORDS SUMMARY | 2022-05-25 21:21 | XMS_ITS | Encounter Summary ---
:1975 Author Organization [facility] Address [address] [place] [address] Care Team Providers Name Role Phone Unavailable Primary Care Provider Unavailable Encounter Details Date Type Department Care Team Description 03/13/[address] [facility] Kalyn Stafford M.D. [address] [place], [place] [phone] (Wo rk) Social History [...] at Date Recorded Female 05/03/2022 7:07 PM SCRUB TECH documented as of this encounter Miscellaneous Notes Telephone Encounter - Génesis Díaz L.PMichaelN. - 03/13/2006 12:00 AM CDT [id number] Note attached to rx to make an appt for phy [facility] Document Id: [id number] Telephone Encounter - Marie Kim M.D. - 03/13/2006 12:00 AM CDT [id number] Need a pharmacy Source[facility] Document Id: [id number] documented in this encounter Plan of Treatment Upcoming Encounters Date Type Specialty Care Team Description 06/22/2022 Appointment Laboratory Medicine Rusty Vee M.D. [address] [place] [phone] 06/22/2022 Diagnostic Pulmonary Medicine Rusty Vee M.D. [address] [place] [phone] 06/22/2022 Diagnostic Pulmonary Medicine Rusty Vee M.D. [address] [place] [phone] 06/22/2022 Appointment Radiology Rusty Vee M.D. [address] [place] [phone] 06/23/2022 Clinical Communication Admitting/Central Scheduling 06/28/2022 Appointment Pulmonary Medicine Rusty Vee M.D. [address] [place] [phone] 06/28/2022 Appointment Pulmonary Medicine Rusty Vee M.D. [address] [place] [phone] documented as of this encounter Visit Diagnoses Not on filedocumented in this encounter
--- OUTSIDE RECORDS SUMMARY | 2022-05-25 21:21 | XMS_ITS | Encounter Summary ---
:1975 Author Organization [facility] Address [address] [place] [address] Care Team Providers Name Role Phone Unavailable Primary Care Provider Unavailable Encounter Details Date Type Department Care Team Description 03/05/2004 Hospital Encounter [facility] Kalyn Stafford M.D. 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 Source: [facility] RWHXTRANSXSYS Document Id: [id number] documented in this encounter Plan of Treatment Upcoming Encounters Date Type Specialty Care Team Description 06/22/2022 Appointment Laboratory Medicine Rusty Vee M.D. [address] [place] [phone] 06/22/2022 Diagnostic Pulmonary Medicine Rusty Vee M.D. [address] [place] [phone] 06/22/2022 Diagnostic Pulmonary Medicine Rusty Vee M.D. [address] [place] [address] [phone] 06/22/2022 Appointment Radiology Rusty Vee M.D. [address] [place] [phone] 06/23/2022 Clinical Communication Admitting/Central Scheduling 06/28/2022 Appointment Pulmonary Medicine Rusty Vee M.D. [address] [place] [address] [phone] 06/28/2022 Appointment Pulmonary Medicine Rusty Vee M.D. [address] [place] [address] [phone] documented as of this encounter Visit Diagnoses Not on filedocumented in this encounter
--- OUTSIDE RECORDS SUMMARY | 2022-05-25 21:21 | XMS_ITS | Encounter Summary ---
:1975 Author Organization [facility] Address [address] [place] [address] Care Team Providers Name Role Phone Unavailable Primary Care Provider Unavailable Encounter Details Date Type Department Care Team Description 07/06/2004 Hospital Encounter [facility]X [facility] Kalyn Stafford M.D. 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 Source: [facility] RWHXTRANSXSYS Document Id: [id number] documented in this encounter Plan of Treatment Upcoming Encounters Date Type Specialty Care Team Description 06/22/2022 Appointment Laboratory Medicine Rusty Vee M.D. [address] [place] [phone] 06/22/2022 Diagnostic Pulmonary Medicine Rusty Vee M.D. [address] [place] [phone] 06/22/2022 Diagnostic Pulmonary Medicine Rusty Vee M.D. [address] [place] [phone] 06/22/2022 Appointment Radiology Rusty Vee M.D. [address] [place] [phone] 06/23/2022 Clinical Communication Admitting/Central Scheduling 06/28/2022 Appointment Pulmonary Medicine Rusty Vee M.D. [address] [place] [phone] 06/28/2022 Appointment Pulmonary Medicine Rusty Vee M.D. [address] [place] [phone] documented as of this encounter Visit Diagnoses Not on filedocumented in this encounter
--- OUTSIDE RECORDS SUMMARY | 2022-05-25 21:21 | XMS_ITS | Encounter Summary ---
:1975 Author Organization [facility] Address [address] [place] [address] Care Team Providers Name Role Phone Unavailable Primary Care Provider Unavailable Encounter Details Date Type Department Care Team Description 11/07/2003 Hospital Encounter [facility] Amber Lopes, RMichaelN. [address] [place], [place] [phone] Social History Tobacco Use [...] Date Recorded Female 05/03/2022 7:07 PM PATHOLOGY LAB TECHNICIAN documented as of this encounter Miscellaneous Notes Telephone Encounter - Conversion, Historical Provider Ser - 11/07/2003 12:00 AM CDT [id number] >> RIVKA Collazo November 07, 2003 10:23 AM >> CALL RECEIVED. Contact: Indicated that an exam is needed, can you provide 3 months in the meantime? Source: [facility] RWHXTRANSXSYS Document Id: [id number] documented in this encounter Plan of Treatment Upcoming Encounters Date Type Specialty Care Team Description 06/22/2022 Appointment Laboratory Medicine Rusty Vee M.D. [address] [place] [phone] 06/22/2022 Diagnostic Pulmonary Medicine Rusty Vee M.D. [address] [place] [phone] 06/22/2022 Diagnostic Pulmonary Medicine Rusty Vee M.D. [address] [place] [address] [phone] 06/22/2022 Appointment Radiology Rusty Vee M.D. [address] [place] [phone] 06/23/2022 Clinical Communication Admitting/Central Scheduling 06/28/2022 Appointment Pulmonary Medicine Rusty Vee M.D. [address] [place] [address] [phone] 06/28/2022 Appointment Pulmonary Medicine Rusty Vee M.D. [address] [place] [phone] documented as of this encounter Visit Diagnoses Not on filedocumented in this encounter
--- OUTSIDE RECORDS SUMMARY | 2022-05-25 21:21 | XMS_ITS | Encounter Summary ---
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 excellent lipids, normal glucose letter sent Source: [facility] RWHXTRANSXSYS Document Id: [id number] Miscellaneous - Emily Kim M.D. - 03/09/2004 8:00 AM CDT [id number] Hue Bellamy Carol [address] [place] [address] March 09, 2004 Dear Hue: I am [...] or problems, please contact our office at [phone]. Sincerely, Emily Kim MD, CHASSIS INSPECTOR Department [facility] Source: [facility] Document Id: [id number] Electronically signed by [facility] Portable Sawmill Operator [id number] at 11/28/2016 8:01 PM CDT documented in this encounter Plan of Treatment Upcoming Encounters Date Type Specialty Care Team Description 06/22/2022 Appointment Laboratory Medicine Rusty Vee M.D. [address] [place] [address] [phone] 06/22/2022 Diagnostic Pulmonary Medicine Rusty Vee M.D. [address] [place] [phone] 06/22/2022 Diagnostic Pulmonary Medicine Rusty Vee M.D. [address] [place] [phone] 06/22/2022 Appointment Radiology Rusty Vee M.D. [address] [place] [phone] 06/23/2022 Clinical Communication Admitting/Central Scheduling 06/28/2022 Appointment Pulmonary Medicine Rusty Vee M.D. [address] [place] [phone] 06/28/2022 Appointment Pulmonary Medicine Rusty Vee M.D. [address] [place] [phone] documented as of this encounter Visit Diagnoses Not on filedocumented in this encounter
--- OUTSIDE RECORDS SUMMARY | 2022-05-25 21:21 | XMS_ITS | Encounter Summary ---
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 - 04/12/2006 3:15 PM CDT [id number] Influenza injection. Reports no egg allergy and no reaction from injection in past. [facility] Document Id: [id number] documented in this encounter Plan of Treatment Upcoming Encounters Date Type Specialty Care Team Description 06/22/2022 Appointment Laboratory Medicine Rusty Vee M.D. [address] [place] [phone] 06/22/2022 Diagnostic Pulmonary Medicine Rusty Vee M.D. [address] [place] [phone] 06/22/2022 Diagnostic Pulmonary Medicine Rusty Vee M.D. [address] [place] [phone] 06/22/2022 Appointment Radiology Rusty Vee M.D. [address] [place] [phone] 06/23/2022 Clinical Communication Admitting/Central Scheduling 06/28/2022 Appointment Pulmonary Medicine Rusty Vee M.D. [address] [place] [phone] 06/28/2022 Appointment Pulmonary Rusty Mattson M.D. [address] [place] [phone] documented as of this encounter Visit Diagnoses Not on filedocumented in this encounter
--- OUTSIDE RECORDS SUMMARY | 2022-05-25 21:21 | XMS_ITS | Encounter Summary ---
:1975 Author Organization [facility] Address [address] [place] [address] Care Team Providers Name Role Phone Unavailable Primary Care Provider Unavailable Encounter Details Date Type Department Care Team Description 03/30/2005 Hospital Encounter HX [facility] Kalyn Stafford M.D. 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 - 03/30/2005 9:00 AM CDT [id number] Hue is a 30 year old here for her annual exam. 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 Down's, never sexually active, very difficult exam Health maintenance includes: refilled mircette for dysmenorrhea. ?pap next yr. Source: [facility] Document Id: [id number] documented in this encounter Plan of Treatment Upcoming Encounters Date Type Specialty Care Team Description 06/22/2022 Appointment Laboratory Medicine Rusty Vee M.D. [address] [place] [phone] 06/22/2022 Diagnostic Pulmonary Medicine Rusty Vee M.D. [address] [place] [phone] 06/22/2022 Diagnostic Pulmonary Medicine Rusty Vee M.D. [address] [place] [phone] 06/22/2022 Appointment Radiology Rusty Vee M.D. [address] [place] [phone] 06/23/2022 Clinical Communication Admitting/Central Scheduling 06/28/2022 Appointment Pulmonary Medicine Rusty Vee M.D. [address] [place] [phone] 06/28/2022 Appointment Pulmonary Medicine Rusty Vee M.D. [address] [place] [phone] documented as of this encounter Visit Diagnoses Not on filedocumented in this encounter
--- OUTSIDE RECORDS SUMMARY | 2022-05-25 21:21 | XMS_ITS | Encounter Summary ---
:1975 Author Organization [facility] Address [address] [place] [address] Care Team Providers Name Role Phone Unavailable Primary Care Provider Unavailable Encounter Details Date Type Department Care Team Description 04/03/2006 Hospital Encounter HX [facility] Kalyn Stafford M.D. 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 - 04/03/2006 9:00 AM CDT [id number] Hue is a 31 year old here for her annual exam. Obstetric History T0 P0 TAB0 SAB0 E0 M0 L0 using none(never sexaully active) for contraception. Ur Coordinator HX: no abnormal paps. Her menses are [...] stomach pains now BREAST: Negative : Negative TELESCOPE MAINTENANCE: Negative CV: Negative PULMONARY: Negative MUSCULOSKELETAL: Negative [...] surfaces of arms ASSESSMENT AND PLAN: Annual Ur Coordinator exam. Never sexually active female with Down's syndrome, refuses pelvic exam. On OCPs for dysmenorrhea-Mircette refilled. 2. Cerumen impaction-irrigated. Discussed calcium intake. Source: [facility] Document Id: [id number] Electronically signed by Conversion, [facility] Plant Protection Guard [id number] at 11/28/2016 5:56 PM CDT documented in this encounter Plan of Treatment Upcoming Encounters Date Type Specialty Care Team Description 06/22/2022 Appointment Laboratory Medicine Rusty Vee M.D. [address] [place] [phone] 06/22/2022 Diagnostic Pulmonary Medicine Rusty Vee M.D. [address] [place] [phone] 06/22/2022 Diagnostic Pulmonary Medicine Rusty Vee M.D. [address] [place] [phone] 06/22/2022 Appointment Radiology Rusty Vee M.D. [address] [place] [phone] 06/23/2022 Clinical Communication Admitting/Central Scheduling 06/28/2022 Appointment Pulmonary Medicine Rusty Vee M.D. [address] [place] [phone] 06/28/2022 Appointment Pulmonary Medicine Rusty Vee M.D. [address] [place] [phone] documented as of this encounter Visit Diagnoses Not on filedocumented in this encounter
--- OUTSIDE RECORDS SUMMARY | 2022-05-25 21:21 | XMS_ITS | Encounter Summary ---
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 [address] [place] [phone] 06/22/2022 Diagnostic Pulmonary Medicine Rusty Vee M.D. [address] [place] [phone] 06/22/2022 Diagnostic Pulmonary Medicine Rusty Vee M.D. [address] [place] [phone] 06/22/2022 Appointment Radiology Rusty Vee M.D. [address] [place] [phone] 06/23/2022 Clinical Communication Admitting/Central Scheduling 06/28/2022 Appointment Pulmonary Medicine Rusty Vee M.D. [address] [place] [phone] 06/28/2022 Appointment Pulmonary Medicine Rusty Vee M.D. [address] [place] [phone] documented as of this encounter Visit Diagnoses Not on filedocumented in this encounter
--- OUTSIDE RECORDS SUMMARY | 2022-05-25 21:21 | XMS_ITS | Encounter Summary ---
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 Marry Lyn RN BOTTOM SAW OPERATOR and Jenny Sam collaborated on all aspects [...] she is agreeable to this.Jenny Sam R.N., FUNERAL LOCATION MANAGER/jas Lyn, CNPD: 05/18/2004T: 05/25/2004 Source: [facility] Document Id: [id number] documented in this encounter Plan of Treatment Upcoming Encounters Date Type Specialty Care Team Description 06/22/2022 Appointment Laboratory Medicine Rusty Vee M.D. [address] [place] [phone] 06/22/2022 Diagnostic Pulmonary Medicine Rusty Vee M.D. [address] [place] [phone] 06/22/2022 Diagnostic Pulmonary Medicine Rusty Vee M.D. [address] [place] [phone] 06/22/2022 Appointment Radiology Rusty Vee M.D. [address] [place] [address] [phone] 06/23/2022 Clinical Communication Admitting/Central Scheduling 06/28/2022 Appointment Pulmonary Medicine Rusty Vee M.D. [address] [place] [address] [phone] 06/28/2022 Appointment Pulmonary Medicine Rusty Vee M.D. [address] [place] [address] [phone] documented as of this encounter Visit Diagnoses Not on filedocumented in this encounter
--- OUTSIDE RECORDS SUMMARY | 2022-05-25 21:21 | XMS_ITS | Encounter Summary ---
:1975 Author Organization [facility] Address [address] [place] [address] Care Team Providers Name Role Phone Unavailable Primary Care Provider Unavailable Encounter Details Date Type Department Care Team Description 2007 Hospital Encounter HX [facility] Provider, Dc austin Social History Tobacco [...] for the very basics like Not v estephanei hard 05/04/2022 food, housing, medical care, and [...] at Date Recorded Female 05/03/2022 7:07 PM LIBRARY MONITOR documented as of this encounter Progress Notes Conversion, Historical Provider Ser - 2007 3:30 PM CDT [id number] SUBJECTIVE: Hue Medina is a 32 year old female who complains of runny nose, mild sore throat, dry cough,chest congestion, chest tightness, shortness of breath hoarseness and fatigue for 2 weeks. She denies a history of seasonal allergies and denies a history of asthma. Patient does not smoke cigarettes. Was on vacation in [facility] and developed illness there. OBJECTIVE: BP 114/74 [...] 490 BRONCHITIS NOS Yes PLAN: Medications per [facility] orders Orders Placed This Encounter Procedure Zithromax tri-rossana 500 mg or tabs Symptomatic therapy suggested: push fluids, rest, gargle warm salt water, use vaporizer or mist needed and use acetaminophen, ibuprofen, decongestant of choice, cough suppressant of choice as needed. Call or return to clinic prn if these symptoms worsen or fail to improve as anticipated. Source: [facility] Document Id: [id number] documented in this encounter Miscellaneous Notes Miscellaneous - Conversion, Historical Provider Ser - 2007 3:30 PM CDT [id number] 2007 Hue Medina [address] [place] [address] (home) : 1975 To Whom it May Concern: Ms. Hue Medina missed work on 12/29/2006 to 2007 due to bronchitis. She was seen in our clinic today (2007). Please contact me for questions or concerns. Sincerely, Marry Lyn RN, [facility] Source: [facility] Document Id: [id number] documented in this encounter Plan of Treatment Upcoming Encounters Date Type Specialty Care Team Description 06/22/2022 Appointment Laboratory Medicine Rusty Vee M.D. [address] [place] [phone] 06/22/2022 Diagnostic Pulmonary Medicine Rusty Vee M.D. [address] [place] [phone] 06/22/2022 Diagnostic Pulmonary Medicine Rusty Vee M.D. [address] [place] [address] [phone] 06/22/2022 Appointment Radiology Rusty Vee M.D. [address] [place] [address] [phone] 06/23/2022 Clinical Communication Admitting/Central Scheduling 06/28/2022 Appointment Pulmonary Medicine Rusty Vee M.D. [address] [place] [phone] 06/28/2022 Appointment Pulmonary Medicine Rusty Vee M.D. [address] [place] [phone] documented as of this encounter Visit Diagnoses Not on filedocumented in this encounter
--- OUTSIDE RECORDS SUMMARY | 2022-05-25 21:21 | XMS_ITS | Encounter Summary ---
:1975 Author Organization [facility] Address [address] [place] [address] Care Team Providers Name Role Phone Unavailable Primary Care Provider Unavailable Encounter Details Date Type Department Care Team Description 07/11/2006 [facility] Carli Acuna M.D. 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 - 07/11/2006 9:30 AM CST [id number] CLINIC ENCOUNTER CONFRONTATION VISUAL [place]: Intact. MOTILITY: [...] year. Steven Porter M.D. Kiera cc: Source: [facility] RWHXTRANSXSYS Document Id: [id number] Electronically signed by Conversion, [facility] School Vocational Educator [id number] at 11/28/2016 8:03 AM CDT Conversion, Historical Provider Ser - 07/11/2006 9:30 AM CST [id number] Hue Medina is a 31 year old female who presents for Annual eye exam History of Present Illness: Patient states Pt reports vision to be good, however eye water a lot andwill make vision blurry. Pt states she is allergic to some kind of eye drop, does not know what kind. Lyndon Mehta, [facility] VA: 20/70, 20/80 with no corrective lens MANIFEST Rx: OD:NI OS:NI -apd Eyes are straight PRESSURES: OD20, OS 20 Difficult Dilation Medication: Tropicamide 1.0% Phenylephrine 2.5% CR OD Sundown +1.00x 94 OS -2.75+1.25x95 Cyclo OD [place]own+1.93u03=52 OS Sundown sph= 80 Patient Active Problem List Diagnoses [...] Psychiatric: negative Hematologic/Lymphatic/Immunologic: negative Endocrine: negative Source: [facility] Document Id: [id number] documented in this encounter Plan of Treatment Upcoming Encounters Date Type Specialty Care Team Description 06/22/2022 Appointment Laboratory Medicine Rusty Vee M.D. 200 [place] [phone] 06/22/2022 Diagnostic Pulmonary Medicine Rusty Vee M.D. [address] [place] [phone] 06/22/2022 Diagnostic Pulmonary Medicine Rusty Vee M.D. [address] [place] [address] [phone] 06/22/2022 Appointment Radiology Rusty Vee M.D. [address] [place] [phone] 06/23/2022 Clinical Communication Admitting/Central Scheduling 06/28/2022 Appointment Pulmonary Medicine Rusty Vee M.D. [address] [place] [phone] 06/28/2022 Appointment Pulmonary Medicine Rusty Vee M.D. [address] [place] [phone] documented as of this encounter Visit Diagnoses Not on filedocumented in this encounter
--- OUTSIDE RECORDS SUMMARY | 2022-05-25 21:21 | XMS_ITS | Encounter Summary ---
:1975 Author Organization [facility] Address [address] [place] [address] Care Team Providers Name Role Phone Unavailable Primary Care Provider Unavailable Encounter Details Date Type Department Care Team Description 03/11/2005 Hospital Encounter [facility]X [facility] Kalyn Stafford M.D. 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 [address] [place] [phone] 06/22/2022 Diagnostic Pulmonary Medicine Rusty Vee M.D. [address] [place] [phone] 06/22/2022 Diagnostic Pulmonary Medicine Rusty Vee M.D. [address] [place] [phone] 06/22/2022 Appointment Radiology Rusty Vee M.D. [address] [place] [phone] 06/23/2022 Clinical Communication Admitting/Central Scheduling 06/28/2022 Appointment Pulmonary Medicine Rusty Vee M.D. [address] [place] [phone] 06/28/2022 Appointment Pulmonary Medicine Rusty Vee M.D. [address] [place] [phone] documented as of this encounter Visit Diagnoses Not on filedocumented in this encounter
--- OUTSIDE RECORDS SUMMARY | 2022-05-25 21:21 | XMS_ITS | Encounter Summary ---
:1975 Author Organization [facility] Address [address] [place] [address] Care Team Providers Name Role Phone Unavailable Primary Care Provider Unavailable Encounter Details Date Type Department Care Team Description 08/12/2004 Hospital Encounter HX [facility] Prasad Mcduffie M.D. 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 - 08/12/2004 2:30 PM CST [id number] Comment: Hims Manager SUBJECTIVE: Ms. Medina is a pleasant 29 [...] Vitals: B/P: 110/70 T: 97.4 P: 74 [place]: Bilateral complete cerumen impaction in the medial [...] fissure - antibiotic prn. Prasad Anaya M.D., [facility]/shabnam CC: Dr. Garibay for review. Source: [facility] Document Id: [id number] Conversion, Historical Provider Ser - 08/12/2004 2:30 PM CST [id number] There is no problem list on file [...] Patient's allergies include: Quinolones, Bees, Chloramphenicol Source[facility] Document Id: [id number] documented in this encounter Plan of Treatment Upcoming Encounters Date Type Specialty Care Team Description 06/22/2022 Appointment Laboratory Medicine Rusty Vee M.D. [address] [place] [phone] 06/22/2022 Diagnostic Pulmonary Medicine Rusty Vee M.D. [address] [place] [phone] 06/22/2022 Diagnostic Pulmonary Medicine Rsuty Vee M.D. [address] [place] [phone] 06/22/2022 Appointment Radiology Rusty Vee M.D. [address] [place] [phone] 06/23/2022 Clinical Communication Admitting/Central Scheduling 06/28/2022 Appointment Pulmonary Medicine Rusty Vee M.D. [address] [place] [phone] 06/28/2022 Appointment Pulmonary Medicine Rusty Vee M.D. [address] [place] [phone] documented as of this encounter Visit Diagnoses Not on filedocumented in this encounter
--- OUTSIDE RECORDS SUMMARY | 2022-05-25 21:22 | XMS_ITS | Encounter Summary ---
:1975 Author Organization [facility] Address [address] [place] [address] Care Team Providers Name Role Phone Unavailable Primary Care Provider Unavailable Encounter Details Date Type Department Care Team Description 11/07/2001 Hospital Encounter HX [facility] Frankie Seay M.D. 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 >> ROXY DOMINIQUE Jordyn November 08, 2001 11:17 AM tisha will contac hue mom to make sure of the medication for psoriasis and will let us know, the name of med from jenn[facility] was dovonex .005mg , apply ad directed >> KELL FRANCESCA MonNovember 07, 2001 6:02 PM please call Tisha and tell her results were negative for stool - probable virus going around. I totally blanked on name of psoriasis cream - please call [facility] and ask what was previously given and refill for one year - thanks >> FRANCISCO JENSEN MonNovember 07, 2001 12:59 PM severino mother called and needs a refil for severino psoriasis. rx to [facility]. >> FRANCISCO JENSEN MonNovember 07, 2001 12:48 PM >> CALL RECEIVED. Contact: call [phone] with her stool sample results -to tisha pretty. Source: [facility] Document Id: [id number] documented in this encounter Plan of Treatment Upcoming Encounters Date Type Specialty Care Team Description 06/22/2022 Appointment Laboratory Medicine Rusty Vee M.D. 200 [place] [phone] 06/22/2022 Diagnostic Pulmonary Medicine Rusty Vee M.D. [address] [place] [phone] 06/22/2022 Diagnostic Pulmonary Medicine Rusty Vee M.D. [address] [place] [phone] 06/22/2022 Appointment Radiology Rusty Vee M.D. 200 [place] [phone] 06/23/2022 Clinical Communication Admitting/Central Scheduling 06/28/2022 Appointment Pulmonary Medicine Rusty Vee M.D. [address] [place] [phone] 06/28/2022 Appointment Pulmonary Medicine Rusty Vee M.D. [address] [place] [phone] documented as of this encounter Visit Diagnoses Not on filedocumented in this encounter
--- OUTSIDE RECORDS SUMMARY | 2022-05-25 21:22 | XMS_ITS | Encounter Summary ---
:1975 Author Organization [facility] Address [address] [place] [address] Care Team Providers Name Role Phone Unavailable Primary Care Provider Unavailable Encounter Details Date Type Department Care Team Description 11/07/2001 Hospital Encounter [facility] Frankie Seay M.D. 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 Contact: Source: [facility] Document Id: [id number] documented in this encounter Plan of Treatment Upcoming Encounters Date Type Specialty Care Team Description 06/22/2022 Appointment Laboratory Medicine Rusty Vee M.D. [address] [place] [phone] 06/22/2022 Diagnostic Pulmonary Medicine Rusty Vee M.D. [address] [place] [phone] 06/22/2022 Diagnostic Pulmonary Medicine Rusty Vee M.D. [address] [place] [address] [phone] 06/22/2022 Appointment Radiology Rusty Vee M.D. [address] [place] [address] [phone] 06/23/2022 Clinical Communication Admitting/Central Scheduling 06/28/2022 Appointment Pulmonary Medicine Rusty Vee M.D. [address] [place] [phone] 06/28/2022 Appointment Pulmonary Medicine Rusty Vee M.D. [address] [place] [address] [phone] documented as of this encounter Visit Diagnoses Not on filedocumented in this encounter
--- OUTSIDE RECORDS SUMMARY | 2022-05-25 21:22 | XMS_ITS | Encounter Summary ---
:1975 Author Organization [facility] Address [address] [place] [address] Care Team Providers Name Role Phone Unavailable Primary Care Provider Unavailable Encounter Details Date Type Department Care Team Description 07/30/2001 Hospital Encounter [facility] Frankie Seay M.D. 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 Contact: refill RX please. Thank you Source: [facility]XTR[facility] Document Id: [id number] documented in this encounter Plan of Treatment Upcoming Encounters Date Type Specialty Care Team Description 06/22/2022 Appointment Laboratory Medicine Rusty Vee M.D. [address] [place] [phone] 06/22/2022 Diagnostic Pulmonary Medicine Rusty Vee M.D. [address] [place] [phone] 06/22/2022 Diagnostic Pulmonary Medicine Rusty Vee M.D. [address] [place] [address] [phone] 06/22/2022 Appointment Radiology Rusty Vee M.D. [address] [place] [phone] 06/23/2022 Clinical Communication Admitting/Central Scheduling 06/28/2022 Appointment Pulmonary Medicine Rusty Vee M.D. [address] [place] [phone] 06/28/2022 Appointment Pulmonary Medicine Rusty Vee M.D. [address] [place] [phone] documented as of this encounter Visit Diagnoses Not on filedocumented in this encounter
--- OUTSIDE RECORDS SUMMARY | 2022-05-25 21:22 | XMS_ITS | Encounter Summary ---
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 200 [place] [phone] 06/22/2022 Diagnostic Pulmonary Medicine Rusty Vee M.D. 200 [place] [phone] 06/22/2022 Diagnostic Pulmonary Medicine Rusty Vee M.D. [address] [place] [phone] 06/22/2022 Appointment Radiology Rusty Vee M.D. [address] [place] [phone] 06/23/2022 Clinical Communication Admitting/Central Scheduling 06/28/2022 Appointment Pulmonary Medicine Rusty Vee M.D. [address] [place] [phone] 06/28/2022 Appointment Pulmonary Medicine Rusty Vee M.D. [address] [place] [phone] documented as of this encounter Visit Diagnoses Not on filedocumented in this encounter
--- OUTSIDE RECORDS SUMMARY | 2022-05-25 21:22 | XMS_ITS | Encounter Summary ---
:1975 Author Organization [facility] Address [address] [place] [address] Care Team Providers Name Role Phone Unavailable Primary Care Provider Unavailable Encounter Details Date Type Department Care Team Description 04/09/2001 Hospital Encounter [facility] Yumi Lovelace R.N. 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 Felipe and no further recommendations just to continue SBE prophylaxis and repeat echo in one year and this message was called to the pt's mother . >> YUMI Argueta Apr 09, 2001 12:01 PM>> CALL RECEIVED. Contact: AREN CASTLE [phone] TING TO HERE ECHO RESULTS( YOU WERE GOING TO SPEAK TO DR FELIPE FIRST?) Source: [facility] Document Id: [id number] documented in this encounter Plan of Treatment Upcoming Encounters Date Type Specialty Care Team Description 06/22/2022 Appointment Laboratory Medicine Rusyt Vee M.D. [address] [place] [phone] 06/22/2022 Diagnostic Pulmonary Medicine Rusty Vee M.D. [address] [place] [phone] 06/22/2022 Diagnostic Pulmonary Medicine Rusty Vee M.D. [address] [place] [phone] 06/22/2022 Appointment Radiology Rusty Vee M.D. [address] [place] [phone] 06/23/2022 Clinical Communication Admitting/Central Scheduling 06/28/2022 Appointment Pulmonary Medicine Rusty Vee M.D. [address] [place] [phone] 06/28/2022 Appointment Pulmonary Medicine Rusty Vee M.D. [address] [place] [phone] documented as of this encounter Visit Diagnoses Not on filedocumented in this encounter
--- OUTSIDE RECORDS SUMMARY | 2022-05-25 21:22 | XMS_ITS | Encounter Summary ---
:1975 Author Organization [facility] Address [address] [place] [address] Care Team Providers Name Role Phone Unavailable Primary Care Provider Unavailable Encounter Details Date Type Department Care Team Description 10/04/2002 Hospital Encounter HX [facility] Amber Lopes, RMichaelN. 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 Contact: Kathy patient, indicated that an exam is due. Will you refills 3 months worth? Accepting this Rx will FAX it directly to the pharmacy. Source: [facility] Document Id: [id number] documented in this encounter Plan of Treatment Upcoming Encounters Date Type Specialty Care Team Description 06/22/2022 Appointment Laboratory Medicine Rusty Vee M.D. [address] [place] [address] [phone] 06/22/2022 Diagnostic Pulmonary Medicine Rusty Vee M.D. [address] [place] [phone] 06/22/2022 Diagnostic Pulmonary Medicine Rusty Vee M.D. [address] [place] [phone] 06/22/2022 Appointment Radiology Rusty Vee M.D. [address] [place] [phone] 06/23/2022 Clinical Communication Admitting/Central Scheduling 06/28/2022 Appointment Pulmonary Medicine Rusty Vee M.D. [address] [place] [address] [phone] 06/28/2022 Appointment Pulmonary Medicine Rusty Vee M.D. [address] [place] [phone] documented as of this encounter Visit Diagnoses Not on filedocumented in this encounter
--- OUTSIDE RECORDS SUMMARY | 2022-05-25 21:22 | XMS_ITS | Encounter Summary ---
:1975 Author Organization [facility] Address [address] [place] [address] Care Team Providers Name Role Phone Unavailable Primary Care Provider Unavailable Encounter Details Date Type Department Care Team Description 11/01/2001 Hospital Encounter HX [facility] Frankie Seay M.D. 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 NEUROLOGIC: Normal.ASSESSMENT: Normal ANALYST exam. Down's Syndrome. PLAN: Pap and labs as noted. Prescription refill as noted. Quick Note by: RACHEAL TAYLOR on 11/05/01 at 11:37 AM. happy pap sent [facility] Document Id: [id number] documented in this encounter Miscellaneous Notes Miscellaneous - Conversion, Historical Provider Ser - 11/01/2001 4:00 PM CDT [id number] Hue Medina [facility] [address] [place] [address] November 05, 2001 Dear Hue Medina, I am happy to inform you that your recent cervical cancer screening test (PAP smear) was normal. Preventative screening such as this helps insure your health for years to come. Congratulations for taking care of yourself! Please contact my office if you have any further questions. [phone]. Sincerely, Niesha Chavez M.D. OBSTETRICS/GYNECOLOGY [facility] Source: [facility] Document Id: [id number] documented in this encounter Plan of Treatment Upcoming Encounters Date Type Specialty Care Team Description 06/22/2022 Appointment Laboratory Medicine Rusty Vee M.D. [address] [place] [phone] 06/22/2022 Diagnostic Pulmonary Medicine Rusty Vee M.D. [address] [place] [phone] 06/22/2022 Diagnostic Pulmonary Medicine Rusty Vee M.D. [address] [place] [address] [phone] 06/22/2022 Appointment Radiology Rusty Vee M.D. [address] [place] [phone] 06/23/2022 Clinical Communication Admitting/Central Scheduling 06/28/2022 Appointment Pulmonary Medicine Rusty Vee M.D. [address] [place] [phone] 06/28/2022 Appointment Pulmonary Medicine Rusty Vee M.D. [address] [place] [phone] documented as of this encounter Visit Diagnoses Not on filedocumented in this encounter
--- OUTSIDE RECORDS SUMMARY | 2022-05-25 21:22 | XMS_ITS | Encounter Summary ---
:1975 Author Organization [facility] Address [address] [place] [address] Care Team Providers Name Role Phone Unavailable Primary Care Provider Unavailable Encounter Details Date Type Department Care Team Description 03/15/2001 Hospital Encounter [facility] Crawford M.D. 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 On [...] above plan. Osvaldo Mayen M.D./rvD: 03/15/2001 Source: [facility] RWHXTRANSXSYS Document Id: [id number] documented in this encounter Plan of Treatment Upcoming Encounters Date Type Specialty Care Team Description 06/22/2022 Appointment Laboratory Medicine Rusty Vee M.D. [address] [place] [phone] 06/22/2022 Diagnostic Pulmonary Medicine Rusty Vee M.D. [address] [place] [phone] 06/22/2022 Diagnostic Pulmonary Medicine Rusty Vee M.D. [address] [place] [phone] 06/22/2022 Appointment Radiology Rusty Vee M.D. [address] [place] [phone] 06/23/2022 Clinical Communication Admitting/Central Scheduling 06/28/2022 Appointment Pulmonary Medicine Rusty Vee M.D. [address] [place] [phone] 06/28/2022 Appointment Pulmonary Medicine Rusty Vee M.D. [address] [place] [phone] documented as of this encounter Visit Diagnoses Not on filedocumented in this encounter
--- OUTSIDE RECORDS SUMMARY | 2022-05-25 21:22 | XMS_ITS | Encounter Summary ---
:1975 Author Organization [facility] Address [address] [place] [address] Care Team Providers Name Role Phone Unavailable Primary Care Provider Unavailable Encounter Details Date Type Department Care Team Description 03/19/2001 [facility] Crawford M.D. 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 Osvaldo Mayen M.D./Kendall: 03/19/2001T: 03/27/2001 Source: [facility] Document Id: [id number] documented in this encounter Plan of Treatment Upcoming Encounters Date Type Specialty Care Team Description 06/22/2022 Appointment Laboratory Medicine Rusty Vee M.D. [address] [place] [phone] 06/22/2022 Diagnostic Pulmonary Medicine Rusty Vee M.D. [address] [place] [phone] 06/22/2022 Diagnostic Pulmonary Medicine Rusty Vee M.D. [address] [place] [phone] 06/22/2022 Appointment Radiology Rusty Vee M.D. [address] [place] [phone] 06/23/2022 Clinical Communication Admitting/Central Scheduling 06/28/2022 Appointment Pulmonary Medicine Rusty Vee M.D. [address] [place] [phone] 06/28/2022 Appointment Pulmonary Medicine Rusty Vee M.D. [address] [place] [phone] documented as of this encounter Visit Diagnoses Not on filedocumented in this encounter
--- OUTSIDE RECORDS SUMMARY | 2022-05-25 21:22 | XMS_ITS | Encounter Summary ---
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 200 [place] [phone] 06/22/2022 Diagnostic Pulmonary Medicine Rusty Vee M.D. 200 [place] [phone] 06/22/2022 Diagnostic Pulmonary Medicine Rusty Vee M.D. [address] [place] [phone] 06/22/2022 Appointment Radiology Rusty Vee M.D. [address] [place] [phone] 06/23/2022 Clinical Communication Admitting/Central Scheduling 06/28/2022 Appointment Pulmonary Medicine Rusty Vee M.D. [address] [place] [phone] 06/28/2022 Appointment Pulmonary Medicine Rusty Vee M.D. [address] [place] [phone] documented as of this encounter Visit Diagnoses Not on filedocumented in this encounter
--- OUTSIDE RECORDS SUMMARY | 2022-05-25 21:22 | XMS_ITS | Encounter Summary ---
:1975 Author Organization [facility] Address [address] [place] [address] Care Team Providers Name Role Phone Unavailable Primary Care Provider Unavailable Encounter Details Date Type Department Care Team Description 11/05/2001 Hospital Encounter [facility] Frankie Seay M.D. 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 will notify her mother [facility] Document Id: [id number] documented in this encounter Plan of Treatment Upcoming Encounters Date Type Specialty Care Team Description 06/22/2022 Appointment Laboratory Medicine Rusty Vee M.D. [address] [place] [phone] 06/22/2022 Diagnostic Pulmonary Medicine Rusty Vee M.D. [address] [place] [phone] 06/22/2022 Diagnostic Pulmonary Medicine Rusty Vee M.D. [address] [place] [address] [phone] 06/22/2022 Appointment Radiology Rusty Vee M.D. [address] [place] [phone] 06/23/2022 Clinical Communication Admitting/Central Scheduling 06/28/2022 Appointment Pulmonary Medicine Rusty Vee M.D. [address] [place] [address] [phone] 06/28/2022 Appointment Pulmonary Medicine Rusty Vee M.D. [address] [place] [address] [phone] documented as of this encounter Visit Diagnoses Not on filedocumented in this encounter
--- OUTSIDE RECORDS SUMMARY | 2022-05-25 21:22 | XMS_ITS | Encounter Summary ---
:1975 Author Organization [facility] Address [address] [place] [address] Care Team Providers Name Role Phone Unavailable Primary Care Provider Unavailable Encounter Details Date Type Department Care Team Description 07/24/2002 Hospital Encounter [facility]X [facility] Frankie Seay M.D. 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 Contact: please fax, last phy 11/01/01 Source: [facility] RWHXTRANSXSYS Document Id: [id number] documented in this encounter Plan of Treatment Upcoming Encounters Date Type Specialty Care Team Description 06/22/2022 Appointment Laboratory Medicine Rusty Vee M.D. [address] [place] [address] [phone] 06/22/2022 Diagnostic Pulmonary Medicine Rusty Vee M.D. [address] [place] [phone] 06/22/2022 Diagnostic Pulmonary Medicine Rusty Vee M.D. [address] [place] [address] [phone] 06/22/2022 Appointment Radiology Rusty Vee M.D. [address] [place] [address] [phone] 06/23/2022 Clinical Communication Admitting/Central Scheduling 06/28/2022 Appointment Pulmonary Medicine Rusty Vee M.D. [address] [place] [address] [phone] 06/28/2022 Appointment Pulmonary Medicine Rusty Vee M.D. [address] [place] [address] [phone] documented as of this encounter Visit Diagnoses Not on filedocumented in this encounter
--- OUTSIDE RECORDS SUMMARY | 2022-05-25 21:22 | XMS_ITS | Encounter Summary ---
:1975 Author Organization [facility] Address [address] [place] [address] Care Team Providers Name Role Phone Unavailable Primary Care Provider Unavailable Encounter Details Date Type Department Care Team Description 02/11/[address] [facility] Frankie Seay M.D. 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 Contact: Accepting this Rx will FAX it directly to the pharmacy. Source: [facility] RWHXTRANSXSYS Document Id: [id number] documented in this encounter Plan of Treatment Upcoming Encounters Date Type Specialty Care Team Description 06/22/2022 Appointment Laboratory Medicine Rusty Vee M.D. [address] [place] [phone] 06/22/2022 Diagnostic Pulmonary Medicine Rusty Vee M.D. [address] [place] [phone] 06/22/2022 Diagnostic Pulmonary Medicine Rusty Vee M.D. [address] [place] [phone] 06/22/2022 Appointment Radiology Rusty Vee M.D. [address] [place] [phone] 06/23/2022 Clinical Communication Admitting/Central Scheduling 06/28/2022 Appointment Pulmonary Medicine Rusty Vee M.D. [address] [place] [phone] 06/28/2022 Appointment Pulmonary Medicine Rusty Vee M.D. [address] [place] [phone] documented as of this encounter Visit Diagnoses Not on filedocumented in this encounter
--- OUTSIDE RECORDS SUMMARY | 2022-05-25 21:22 | XMS_ITS | Encounter Summary ---
:1975 Author Organization [facility] Address [address] [place] [address] Care Team Providers Name Role Phone Unavailable Primary Care Provider Unavailable Encounter Details Date Type Department Care Team Description 03/13/2001 Hospital Encounter HX [facility] INTERNMED Sravani Ortiz M.D., M.H.A. 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 The patient has Down's syndrome. She l scott by herself in [place] and her parents live in [place]. She was visiting them over the [employer] [place] on Monday and the mother noticed [...] BID for 10 days. Will follow up [facility] in 48 hours. Meanwhile, if the patient has any worsening symptoms or new complaint s, come to the clinic or hospital for check-up.Clinically no signs of blood clotting problem. The patient was advised to stop the hormonal replacement therapy until this episode resolves completely, and to consider further discussion about the hormonal replacement therapy with a Bank Sales And Service Manager. If sh e has any questions, to let me know. Anjali Ortiz M.D./Kendall: 03/13/2001T: 03/21/2001 [facility] Document Id: [id number] documented in this encounter Plan of Treatment Upcoming Encounters Date Type Specialty Care Team Description 06/22/2022 Appointment Laboratory Medicine Rusty Vee M.D. [address] [place] [phone] 06/22/2022 Diagnostic Pulmonary Medicine Rusty Vee M.D. [address] [place] [address] [phone] 06/22/2022 Diagnostic Pulmonary Medicine Rusty Vee M.D. [address] [place] [address] [phone] 06/22/2022 Appointment Radiology Rusty Vee M.D. [address] [place] [address] [phone] 06/23/2022 Clinical Communication Admitting/Central Scheduling 06/28/2022 Appointment Pulmonary Medicine Rusty Vee M.D. [address] [place] [address] [phone] 06/28/2022 Appointment Pulmonary Medicine Rusty Vee M.D. [address] [place] [address] [phone] documented as of this encounter Visit Diagnoses Not on filedocumented in this encounter
--- OUTSIDE RECORDS SUMMARY | 2022-05-25 21:22 | XMS_ITS | Encounter Summary ---
:1975 Author Organization [facility] Address [address] [place] [address] Care Team Providers Name Role Phone Unavailable Primary Care Provider Unavailable Encounter Details Date Type Department Care Team Description 10/24/2003 Hospital Encounter HX [facility] Marsha Garibay M.D. 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 There were no complications. ASSESSME NT:[place], right fifth toe.PLAN:This was pared down and she was instructed in the use of a pumice s tone and corn pad and should get roomier shoes. Follow-up PRN. Sridhar Garibay M.D./mpD: 23/10T: 10/28/03 Source: [facility] RWHXTRANSXSYS Document Id: [id number] documented in this encounter Plan of Treatment Upcoming Encounters Date Type Specialty Care Team Description 06/22/2022 Appointment Laboratory Medicine Rusty Vee M.D. [address] [place] [phone] 06/22/2022 Diagnostic Pulmonary Medicine Rusty Vee M.D. [address] [place] [phone] 06/22/2022 Diagnostic Pulmonary Medicine Rusty Vee M.D. [address] [place] [phone] 06/22/2022 Appointment Radiology Rusty Vee M.D. [address] [place] [phone] 06/23/2022 Clinical Communication Admitting/Central Scheduling 06/28/2022 Appointment Pulmonary Medicine Rusty Vee M.D. [address] [place] [phone] 06/28/2022 Appointment Pulmonary Medicine Rusty Vee M.D. [address] [place] [phone] documented as of this encounter Visit Diagnoses Not on filedocumented in this encounter
--- OUTSIDE RECORDS SUMMARY | 2022-05-25 21:22 | XMS_ITS | Encounter Summary ---
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 [address] [place] [phone] 06/22/2022 Diagnostic Pulmonary Medicine Rusty Vee M.D. [address] [place] [phone] 06/22/2022 Diagnostic Pulmonary Medicine Rusty Vee M.D. [address] [place] [phone] 06/22/2022 Appointment Radiology Rusty Vee M.D. [address] [place] [phone] 06/23/2022 Clinical Communication Admitting/Central Scheduling 06/28/2022 Appointment Pulmonary Medicine Rusty Vee M.D. [address] [place] [phone] 06/28/2022 Appointment Pulmonary Medicine Rusty Vee M.D. [address] [place] [phone] documented as of this encounter Visit Diagnoses Not on filedocumented in this encounter
--- OUTSIDE RECORDS SUMMARY | 2022-05-25 21:22 | XMS_ITS | Encounter Summary ---
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 200 [place] [phone] 06/22/2022 Diagnostic Pulmonary Medicine Rusty Vee M.D. 200 [place] [phone] 06/22/2022 Diagnostic Pulmonary Medicine Rusty Vee M.D. [address] [place] [phone] 06/22/2022 Appointment Radiology Rusty Vee M.D. [address] [place] [phone] 06/23/2022 Clinical Communication Admitting/Central Scheduling 06/28/2022 Appointment Pulmonary Medicine Rusty Vee M.D. [address] [place] [phone] 06/28/2022 Appointment Pulmonary Medicine Rusty Vee M.D. [address] [place] [phone] documented as of this encounter Visit Diagnoses Not on filedocumented in this encounter
--- OUTSIDE RECORDS SUMMARY | 2022-05-25 21:22 | XMS_ITS | Encounter Summary ---
:1975 Author Organization [facility] Address [address] [place] [address] Care Team Providers Name Role Phone Unavailable Primary Care Provider Unavailable Encounter Details Date Type Department Care Team Description 03/27/2001 Hospital Encounter [facility]X [facility] INTERNMED Sravani Ortiz M.D., M.H.A. 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 Anjali Ortiz M.D./Kendall: 03-27-01T: 04-02-01 Source: [facility] RWHXTRANSXSYS Document Id: [id number] documented in this encounter Plan of Treatment Upcoming Encounters Date Type Specialty Care Team Description 06/22/2022 Appointment Laboratory Medicine Rusty Vee M.D. [address] [place] [phone] 06/22/2022 Diagnostic Pulmonary Medicine Rusty Vee M.D. [address] [place] [address] [phone] 06/22/2022 Diagnostic Pulmonary Medicine Rusty Vee M.D. [address] [place] [phone] 06/22/2022 Appointment Radiology Rusty Vee M.D. [address] [place] [phone] 06/23/2022 Clinical Communication Admitting/Central Scheduling 06/28/2022 Appointment Pulmonary Medicine Rusty Vee M.D. [address] [place] [phone] 06/28/2022 Appointment Pulmonary Medicine Rusty Vee M.D. [address] [place] [phone] documented as of this encounter Visit Diagnoses Not on filedocumented in this encounter
--- OUTSIDE RECORDS SUMMARY | 2022-05-25 21:22 | XMS_ITS | Encounter Summary ---
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 200 [place] [phone] 06/22/2022 Diagnostic Pulmonary Medicine Rusty Vee M.D. 200 [place] [phone] 06/22/2022 Diagnostic Pulmonary Medicine Rusty Vee M.D. [address] [place] [phone] 06/22/2022 Appointment Radiology Rusty Vee M.D. [address] [place] [phone] 06/23/2022 Clinical Communication Admitting/Central Scheduling 06/28/2022 Appointment Pulmonary Medicine Rusty Vee M.D. [address] [place] [phone] 06/28/2022 Appointment Pulmonary Medicine Rusty Vee M.D. [address] [place] [phone] documented as of this encounter Visit Diagnoses Not on filedocumented in this encounter
--- OUTSIDE RECORDS SUMMARY | 2022-05-25 21:22 | XMS_ITS | Encounter Summary ---
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 200 [place] [phone] 06/22/2022 Diagnostic Pulmonary Medicine Rusty Vee M.D. 200 [place] [phone] 06/22/2022 Diagnostic Pulmonary Medicine Rusty Vee M.D. [address] [place] [phone] 06/22/2022 Appointment Radiology Rusty Vee M.D. [address] [place] [phone] 06/23/2022 Clinical Communication Admitting/Central Scheduling 06/28/2022 Appointment Pulmonary Medicine Rusty Vee M.D. [address] [place] [phone] 06/28/2022 Appointment Pulmonary Medicine Rusty Vee M.D. [address] [place] [phone] documented as of this encounter Visit Diagnoses Not on filedocumented in this encounter
--- OUTSIDE RECORDS SUMMARY | 2022-05-25 21:22 | XMS_ITS | Encounter Summary ---
:1975 Author Organization [facility] Address [address] [place] [address] Care Team Providers Name Role Phone Unavailable Primary Care Provider Unavailable Encounter Details Date Type Department Care Team Description 02/06/2001 Hospital Encounter HX NO MAPPING Mina Hunt M.D. 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 [address] [place] [phone] 06/22/2022 Diagnostic Pulmonary Medicine Rusty Vee M.D. [address] [place] [phone] 06/22/2022 Diagnostic Pulmonary Medicine Rusty Vee M.D. [address] [place] [phone] 06/22/2022 Appointment Radiology Rusty Vee M.D. [address] [place] [phone] 06/23/2022 Clinical Communication Admitting/Central Scheduling 06/28/2022 Appointment Pulmonary Medicine Rusty Vee M.D. [address] [place] [phone] 06/28/2022 Appointment Pulmonary Medicine Rusty Vee M.D. [address] [place] [phone] documented as of this encounter Visit Diagnoses Not on filedocumented in this encounter
--- OUTSIDE RECORDS SUMMARY | 2022-05-25 21:22 | XMS_ITS | Encounter Summary ---
:1975 Author Organization [facility] Address [address] [place] [address] Care Team Providers Name Role Phone Unavailable Primary Care Provider Unavailable Encounter Details Date Type Department Care Team Description 10/09/2003 Hospital Encounter H[facility] Marsha Garibay M.D. 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 [address] [place] [address] [phone] 06/22/2022 Diagnostic Pulmonary Medicine Rusty Vee M.D. [address] [place] [phone] 06/22/2022 Diagnostic Pulmonary Medicine Rusty Vee M.D. [address] [place] [phone] 06/22/2022 Appointment Radiology Rusty Vee M.D. [address] [place] [address] [phone] 06/23/2022 Clinical Communication Admitting/Central Scheduling 06/28/2022 Appointment Pulmonary Medicine Rusty Vee M.D. [address] [place] [address] [phone] 06/28/2022 Appointment Pulmonary Medicine Rusty Vee M.D. [address] [place] [phone] documented as of this encounter Visit Diagnoses Not on filedocumented in this encounter
--- OUTSIDE RECORDS SUMMARY | 2022-05-25 21:22 | XMS_ITS | Encounter Summary ---
:1975 Author Organization [facility] Address [address] [place] [address] Care Team Providers Name Role Phone Unavailable Primary Care Provider Unavailable Encounter Details Date Type Department Care Team Description 12/06/2002 Hospital Encounter HX [facility] Kalyn Stafford M.D. 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 Obstetric History The patient has not been aske d about . using none for contraception. 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 Down's syndrome, high functioning, lives independently. Never sexually activ ecorn on toe?evolving superficial thrombophlebitisnew cough - on vacation and at work.Health mary ntenance includes: pap smear done today and declined cholesterol, needs eye exam. Hot packs, Ibuprofe n prn to left legrf MircetteOnly needs pap Q 3 yrs unless becomes sexually active. Quick Note by: RACHEAL YOU on 12/10/02 at 12:45 PM. happy pap sent Quick Note by: RACHEAL YOU on 12/10/02 at 12:46 PM. happy pap sent Source: [facility] RWHXTRANSXSYS Document Id: [id number] documented in this encounter Miscellaneous Notes Miscellaneous - Conversion, Historical Provider Ser - 12/06/2002 4:15 PM CDT [id number] Hue Medina [facility] [address] [place] [address] December 10, 2002 Dear Hue Medina, I am happy to inform you that your recent cervical cancer screening test (PAP smear) was normal. Preventative screening such as this helps insure your health for years to come. Congratulations for taking care of yourself! Please contact my office if you have any further questions. [phone]. Sincerely, Marie Kim M.D. OBSTETRICS/GYNECOLOGY [facility] Source: [facility] Document Id: [id number] Miscellaneous - Conversion, Historical Provider Ser - 12/06/2002 4:15 PM CDT [id number] Hue Medina [facility] [address] [place] [address] December 10, 2002 Dear Hue Medina, I am happy to inform you that your recent cervical cancer screening test (PAP smear) was normal. Preventative screening such as this helps insure your health for years to come. Congratulations for taking care of yourself! Please contact my office if you have any further questions. [phone]. Sincerely, Marie Kim M.D. [facility]ECOLOGY [facility] Source: [facility] Document Id: [id number] documented in this encounter Plan of Treatment Upcoming Encounters Date Type Specialty Care Team Description 06/22/2022 Appointment Laboratory Medicine Rusty Vee M.D. 200 [place] [phone] 06/22/2022 Diagnostic Pulmonary Medicine Rusty Vee M.D. 200 [place] [phone] 06/22/2022 Diagnostic Pulmonary Medicine Rusty Vee M.D. 200 [place] [phone] 06/22/2022 Appointment Radiology Rusty Vee M.D. [address] [place] [phone] 06/23/2022 Clinical Communication Admitting/Central Scheduling 06/28/2022 Appointment Pulmonary Medicine Rusty Vee M.D. [address] [place] [phone] 06/28/2022 Appointment Pulmonary Medicine Rutsy Vee M.D. [address] [place] [phone] documented as of this encounter Visit Diagnoses Not on filedocumented in this encounter
--- OUTSIDE RECORDS SUMMARY | 2022-05-25 21:22 | XMS_ITS | Encounter Summary ---
:1975 Author Organization [facility] Address [address] [place] [address] Care Team Providers Name Role Phone Unavailable Primary Care Provider Unavailable Encounter Details Date Type Department Care Team Description 07/29/[address] [facility] Frankie Seay M.D. 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 Contact: Refill request received from Pharm. Set to fax. Source: [facility] RWHXTRANSXSYS Document Id: [id number] documented in this encounter Plan of Treatment Upcoming Encounters Date Type Specialty Care Team Description 06/22/2022 Appointment Laboratory Medicine Rusty Vee M.D. [address] [place] [phone] 06/22/2022 Diagnostic Pulmonary Medicine Rusty Vee M.D. [address] [place] [phone] 06/22/2022 Diagnostic Pulmonary Medicine Rusty Vee M.D. [address] [place] [phone] 06/22/2022 Appointment Radiology Rusty Vee M.D. [address] [place] [phone] 06/23/2022 Clinical Communication Admitting/Central Scheduling 06/28/2022 Appointment Pulmonary Medicine Rusty Vee M.D. [address] [place] [phone] 06/28/2022 Appointment Pulmonary Medicine Rusty Vee M.D. [address] [place] [phone] documented as of this encounter Visit Diagnoses Not on filedocumented in this encounter
--- NOTE | 2022-05-31 08:57 | W.PM.SLEEP ---
Sleep Study Details Details Interpreting Provider: Loco Camarillo MD Date of Sleep Study: 05/25/22 Sleep Study Details: STUDY TYPE:? Hospital with CPAP titration ? BMI:? Not recorded ORDERING PROVIDER:? Fernando INDICATION:? Concerns about sleep apnea ? SLEEP SUMMARY:? Total sleep time 390.5 minutes, latency 12 minutes, REM latency 159 minutes, efficiency 86.7, arousal index 5.4 RESPIRATORY SUMMARY:? Mean oxygen awake 87 asleep 66 minimum oxygen 44, 104 minutes oxygen between 80 and 88% 42 minutes oxygen between 70 and 79% 51 minutes oxygen between 60 and 69% 36.8 minutes oxygen between 50 in 59% 2.1 minutes oxygen between 40 and 49% AHI 153.8 note that the entire diagnostic portion of study was done in the supine position. There was no REM sleep recorded in the pretreatment portion of the study CPAP titration was performed and carried up to bilevel of 23/16 which decreased AHI to 10.7 and included REM stage sleep in the nonsupine position. PERIODIC LIMB MOVEMENTS OF SLEEP:? None were noted CARDIAC:? Awake 76, asleep 73, PVCs were noted IMPRESSION:? Extremely severe obstructive sleep apnea Significant hypo oxygenation at baseline and throughout the study. Bilevel titration at a pressure of 23/16 decreased AHI to 10.7 and improved oxygenation but not within normal limits. RECOMMENDATION: Further cardiopulmonary evaluation may be indicated. Would initiate BiPAP at a pressure of 23/16 with close follow-up. Patient may require nocturnal oxygen as well. To establish this an overnight oximetry should be performed when the patient is on bilevel.
== END 2022-05-25 20:53 | disposition home or self-care (01) ==
LOC: SLEEP 20:52
PROVIDERS: PCP Nurse Practitioner Family; Visit Provider Nurse Practitioner Family
DX: G47.33 Obstructive sleep apnea (adult) (pediatric) (principal)
CPT/HCPCS: 95811

== ENCOUNTER 2023-06-20 08:30 | Outpatient (CLI) | payer OTHER, SELFPAY | END 2023-06-20 08:31 | disposition home or self-care (01) | LOC: NFLDREF 06-22 07:51 | PROVIDERS: PCP Nurse Practitioner Family; Referring Provider Nurse Practitioner Family; Visit Provider Nurse Practitioner Family | DX: E78.5 Hyperlipidemia, unspecified (principal); R71.8 Other abnormality of red blood cells; Z13.0 Encounter for screening for diseases of the blood and blood-forming organs and certain disorders involving the immune mechanism; Z13.29 Encounter for screening for other suspected endocrine disorder; Z13.228 Encounter for screening for other metabolic disorders | CPT/HCPCS: 80053; 80061; 82607; 83540; 83550; 84439; 84443; 85025; 86376 ==

== ENCOUNTER 2024-10-24 15:32 | Outpatient (CLI) | payer OTHER, SELFPAY | END 2024-10-24 15:33 | disposition home or self-care (01) | PROVIDERS: PCP Nurse Practitioner Family; Visit Provider Nurse Practitioner Family | DX: E78.5 Hyperlipidemia, unspecified (principal); E03.9 Hypothyroidism, unspecified | CPT/HCPCS: 80053; 80061; 84443; 85025 ==

== ENCOUNTER 2025-01-14 09:00 | Outpatient (CLI) | payer OTHER, SELFPAY ==
--- NOTE | 2025-01-14 09:15 | CRLHL7_ITS ---
For Patients: As a result of the Century Cures Act, medical imaging exams and procedure reports are released immediately into your electronic medical record. You may view this report before your referring provider. If you have questions, please contact your health care provider. INDICATION: Decreased white blood count TECHNIQUE: Ultrasound abdomen complete. Sonographic images of the entire abdomen were obtained using lund-scale and color Doppler. COMPARISON: None. FINDINGS: Liver: Normal in echotexture. No masses. No intrahepatic biliary dilatation. Mild hepatomegaly measuring 16.5 centimeters length. Gallbladder: Cholecystectomy Common bile duct: 5 mm. Pancreas: Pancreatic body and tail are obscured by bowel gas. Remainder of the pancreas is unremarkable. Spleen: Mildly enlarged measuring 13.3 centimeters in the craniocaudal dimension. Volume of 469 mL. Kidneys: Both kidneys are normal in size. Normal echotexture and cortex. No suspicious masses, stones, or hydronephrosis. Vasculature: Proximal abdominal aorta and IVC are normal in caliber. IMPRESSION: Mild hepatosplenomegaly. Dictated by Jodie Rick MD @ 01/16/2025 1:21:35 PM (Electronically Signed)
== END 2025-01-14 09:01 | disposition home or self-care (01) ==
LOC: US 09:01
PROVIDERS: PCP Nurse Practitioner Family; Visit Provider Internal Medicine Hematology & Oncology
DX: D72.819 Decreased white blood cell count, unspecified (principal); R16.2 Hepatomegaly with splenomegaly, not elsewhere classified
CPT/HCPCS: 76700

== ENCOUNTER 2025-02-11 09:19 | Outpatient (CLI) | payer OTHER, SELFPAY ==
--- NOTE | 2025-02-11 10:00 | CRLHL7_ITS ---
For Patients: As a result of the Century Cures Act, medical imaging exams and procedure reports are released immediately into your electronic medical record. You may view this report before your referring provider. If you have questions, please contact your health care provider. INDICATION: Decreased white blood cell count. TECHNIQUE: CT chest, abdomen, and pelvis acquired with 83 mL Isovue 370 IV contrast. COMPARISON: Abdominal ultrasound dated 01/14/2025. FINDINGS: CHEST: Lungs and pleura: Limited evaluation secondary to significant respiratory motion artifact. Diffuse mosaic attenuation of the lung parenchyma. 0.2 cm pulmonary nodule at the right lung apex, likely infectious/inflammatory in etiology. No large focal consolidation or pulmonary masses identified. Right diaphragmatic defect, with large amount of abdominal fat herniated into the right rosenda thorax, consistent with large Morgagni hernia. Heart and vessels: No cardiomegaly, no pericardial effusion. Thyroid and lower neck: No suspicious thyroid nodule. Mediastinum/spencer: No lymphadenopathy. Chest wall: No axillary lymphadenopathy. ABDOMEN/PELVIS: Liver: No suspicious focal hepatic lesion. Gallbladder and bile ducts: Post cholecystectomy. Pancreas: Unremarkable. Spleen: Unremarkable. Adrenal glands: Unremarkable. Kidneys: Kidneys enhance symmetrically, without hydronephrosis. Too small to characterize hypodense left renal lesion noted in the upper pole. Retroperitoneum: No lymphadenopathy. Bowel and mesentery: Bowel is not obstructed. No significant ascites, no pneumoperitoneum. Scattered colonic diverticulosis, without evidence of acute diverticulitis. Bladder: Mild circumferential bladder wall thickening. Reproductive organs: Unremarkable. Pelvic lymph nodes: No lymphadenopathy. Vessels: Unremarkable. Abdominal wall: No acute abdominal wall abnormality. Bones: Multilevel degenerative changes of the spine. Extensive subchondral cystic degenerative changes at the left femoroacetabular joint. Bilateral L5 pars defects. Post median sternotomy. IMPRESSION: 1. Right diaphragmatic defect, with large amount of abdominal fat herniated into the right hemithorax. 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 2. Evaluation of the lung parenchyma is significantly limited due to extensive respiratory motion. Diffuse mosaic attenuation of the lung parenchyma may be secondary to respiratory motion versus underlying small airways disease. 3. Mild circumferential urinary bladder wall thickening, recommend correlation with urinalysis. Please note that all CT scans at this facility use dose modulation, iterative reconstruction, and/or weight-based dosing when appropriate to reduce radiation dose to as low as reasonably achievable. Dictated by Mango Soto MD @ 02/12/2025 6:25:06 PM (Electronically Signed)
== END 2025-02-11 09:20 | disposition home or self-care (01) ==
LOC: CT 09:20
PROVIDERS: PCP Nurse Practitioner Family; Visit Provider Internal Medicine Hematology & Oncology
DX: D72.819 Decreased white blood cell count, unspecified (principal); K46.9 Unspecified abdominal hernia without obstruction or gangrene; D69.6 Thrombocytopenia, unspecified; R16.0 Hepatomegaly, not elsewhere classified
CPT/HCPCS: 71260; 74177; Q9967

== ENCOUNTER 2025-04-23 14:15 | Outpatient (RCR) | payer OTHER, SELFPAY ==
[2024-11-04 15:41] LABS: Hematocrit* 39.3 % (33.0-51.0); Hemoglobin* 12.6 gm/dL (12.0-16.0); Immature Granulocytes Abs Auto 0.00 K/uL (0.00-0.30); Immature Granulocytes Pct Auto 0.0 %; Mean Corpuscular HGB Conc 32 gm/dL (32-36); Mean Corpuscular Hemoglobin 32 pg (26-34); Mean Corpuscular Volume 99 fL (80-100); RDW Coefficient of Variation % 13.0 % (11.5-15.5); Red Blood Count* 3.97 m/uL (4.00-5.20); White Blood Count* 2.73 K/uL (4.50-11.00)
[2024-11-04 15:44] LABS: Lymphocytes Absolute Auto 0.70 K/uL (0.90-2.90); Slide Review Reflex No
[2024-11-04 16:44] LABS: HIV 1/2/P24 Combo Screen* Negative (Negative)
[2024-11-04 16:52] LABS: Hepatitis C Virus Antibody* Negative (Negative)
[2024-11-04 17:13] LABS: Vitamin B12* > 1000 pg/mL (243-894)
[2024-11-06 15:08] LABS: Folate, Serum >22.3 ng/mL (>=5.9)
[2024-11-19 15:25] LABS: Immature Reticulocyte Fraction 14.9 % (3.0-15.9); Reticulocyte Hemoglobin Equivi 31.2 pg (29.0-35.0); Reticulocytes Absolute 0.06 # (0.03-0.08)
[2024-11-19 15:35] LABS: Albumin* 4.1 g/dL (3.3-5.0); Chloride* 103 mmol/L (96-114)
[2024-11-19 15:36] LABS: Potassium* 4.3 mmol/L (3.6-5.1); Sodium* 141 mmol/L (135-149)
[2024-11-19 15:37] LABS: INR 1.02 (0.91-1.10); Prothrombin Time 14.2 Seconds
[2024-11-19 15:38] LABS: Alanine Aminotransferase* 18 U/L (4-35); Aspartate Amino Transferase* 29 U/L (12-35); Blood Urea Nitrogen* 26 mg/dL (7-30); Creatinine* 1.3 mg/dL (0.5-1.5); Est. Creatinine Clearance* 64.89; Estimated Glomerular Filt Rate 50 ml/min
[2024-11-19 15:39] LABS: Alkaline Phosphatase* 73 U/L (40-150); Anion Gap 8 mEq/L (7-15); Bilirubin Total* 0.7 mg/dL (0.1-1.5); Calcium* 9.3 mg/dL (8.4-10.6); Carbon Dioxide* 30 mmol/L (20-32); Glucose* 95 mg/dL (60-115); Total Protein* 7.4 g/dL (6.0-8.3)
[2024-11-19 15:46] LABS: Hematocrit* 36.1 % (33.0-51.0); Hemoglobin* 11.7 gm/dL (12.0-16.0); Immature Granulocytes Pct Auto 0.9 %; Mean Corpuscular HGB Conc 32 gm/dL (32-36); Mean Corpuscular Hemoglobin 32 pg (26-34); Mean Corpuscular Volume 99 fL (80-100); RDW Coefficient of Variation % 12.7 % (11.5-15.5); Red Blood Count* 3.65 m/uL (4.00-5.20); White Blood Count* 3.26 K/uL (4.50-11.00)
[2024-11-19 15:47] LABS: Immature Granulocytes Abs Auto 0.00 K/uL (0.00-0.30); Lymphocytes Absolute Auto 0.70 K/uL (0.90-2.90); Slide Review Reflex No
[2024-11-19 16:44] LABS: Erythrocyte SedimentationRate* 57 mm/hr (2-20)
[2024-11-21 05:22] LABS: Folate, Serum >22.3 ng/mL (>=5.9)
[2024-11-21 08:22] LABS: Copper, Serum/Plasma 116.1 ug/dL (80.0-155.0)
[2024-11-21 20:26] LABS: Anti-Nuclear Ab(ANA)IgG ELISA Detected (None Detected)
[2024-11-22 23:37] LABS: Antinuclear AntibodyHEp-2 <1:80 (<1:80)
[2025-01-28 10:28] LABS: Hematocrit* 37.1 % (33.0-51.0); Hemoglobin* 11.9 gm/dL (12.0-16.0); Immature Granulocytes Abs Auto 0.00 K/uL (0.00-0.30); Immature Granulocytes Pct Auto 0.0 %; Lymphocytes Absolute Auto 0.60 K/uL (0.90-2.90); Mean Corpuscular HGB Conc 32 gm/dL (32-36); Mean Corpuscular Hemoglobin 31 pg (26-34); Mean Corpuscular Volume 97 fL (80-100); RDW Coefficient of Variation % 12.2 % (11.5-15.5); Red Blood Count* 3.82 m/uL (4.00-5.20); Slide Review Reflex No; White Blood Count* 2.48 K/uL (4.50-11.00)
[2025-03-04 15:27] LABS: Appearance Urine Clear (Clear)
[2025-04-23 14:33] LABS: Hematocrit* 39.3 % (33.0-51.0); Hemoglobin* 12.7 gm/dL (12.0-16.0); Immature Granulocytes Abs Auto 0.00 K/uL (0.00-0.30); Immature Granulocytes Pct Auto 0.0 %; Mean Corpuscular HGB Conc 32 gm/dL (32-36); Mean Corpuscular Hemoglobin 31 pg (26-34); Mean Corpuscular Volume 95 fL (80-100); RDW Coefficient of Variation % 13.9 % (11.5-15.5); Red Blood Count* 4.14 m/uL (4.00-5.20); White Blood Count* 3.45 K/uL (4.50-11.00)
[2025-04-23 15:49] LABS: Lymphocytes Absolute Auto 0.70 K/uL (0.90-2.90); Slide Review Reflex Yes
== END 2025-05-03 23:59 | disposition home or self-care (01) ==
LOC: CCIC 14:15
PROVIDERS: Clinical Nurse Specialist; PCP Nurse Practitioner Family; Referring Provider Nurse Practitioner Family; Visit Provider Internal Medicine Hematology & Oncology
DX: D72.819 Decreased white blood cell count, unspecified (principal); D69.6 Thrombocytopenia, unspecified
CPT/HCPCS: 36415; 80053; 81003; 82525; 82607; 82746; 85025; 85045; 85610; 85651; 85730; 86038; 86039; 86140; 86703; 86803; 87536; 88184; 88185; 99202; 99204; 99213; G0463